=== PATIENT | male | born 1945 | race Caucasian/White ===

== ENCOUNTER 2020-02-14 01:43 | Outpatient (CLI) | payer OTHER, SELFPAY ==
--- NOTE | 2020-02-14 | DI.MRI_ITS ---
EXAM: MR PELVIS WO CLINICAL HISTORY: PROSTATE CA,C61,S/P FIDUCIAL MARKER AND HDYROGEL PLACEMENT,[id number]. TECHNIQUE: Multiplanar multisequence MRI was performed. COMPARISON: No exams were available for comparison FINDINGS: MR of the pelvis was performed for radiation therapy planning purposes according to the usual protoco l in patient with reported history of prostatic carcinoma. No significant bony lesion identified on this limited examination. No gross pelvic adenopathy identified. Heterogeneous appearance of the pr ostate noted. Urinary bladder wall thickening noted. There is presumed hydro gel placement anterior to the rectum. IMPRESSION: DATA REPOSITORY:
== END 2020-02-14 02:03 ==
PROVIDERS: PCP Internal Medicine; Visit Provider Radiology Radiation Oncology
DX: C61 Malignant neoplasm of prostate (principal); N32.89 Other specified disorders of bladder; Z51.0 Encounter for antineoplastic radiation therapy
CPT/HCPCS: 72195

== ENCOUNTER 2020-10-03 17:27 | Outpatient (REF) | payer OTHER, SELFPAY ==
[2020-10-03 18:23] LABS: Bilirubin Small (Negative); Blood Large (Negative); Clarity Cloudy (Clear); Glucose Negative (Negative); Ketones Negative (Negative); Leukocyte Esterase Trace (Negative); Nitrite Positive (Negative); pH 8.5 (5-8)
[2020-10-03 18:32] LABS: Epithelial Cells Few HPF (Negative)
[2020-10-03 18:33] LABS: Bacteria Many HPF (Negative); C & S Indicated? Yes; Casts Negative LPF (Negative); Crystals Negative HPF (Negative); Mucus Moderate (Negative)
== END 2020-10-03 17:28 | disposition home or self-care (01) ==
LOC: LBN 17:27
PROVIDERS: PCP Internal Medicine; Visit Provider Internal Medicine
DX: R31.9 Hematuria, unspecified (principal); N39.0 Urinary tract infection, site not specified
CPT/HCPCS: 87077; 81003; 81015; 87086; 87186

== ENCOUNTER 2020-10-24 04:07 | Outpatient (CLI) | payer OTHER, SELFPAY ==
[2020-10-25 17:06] LABS: PSA, Ultrasensitive 1.4 ng/mL (<= 6.5)
[2020-10-28 14:01] LABS: Testosterone, Total 309 ng/dL (240-950)
== END 2020-10-24 04:08 | disposition home or self-care (01) ==
PROVIDERS: Nurse Practitioner Family; PCP Internal Medicine
DX: C61 Malignant neoplasm of prostate (principal)
CPT/HCPCS: 36415; 84153; 84403

== ENCOUNTER 2020-12-26 03:37 | Outpatient (CLI) | payer OTHER, SELFPAY ==
[2020-12-26 14:50] LABS: Abs Immature Grans 0.02 10^3/uL (0.0-0.06); Absolute Basophil Count 0.03 10^3/uL (0.0-0.2); Absolute Lymphocyte Count 0.99 10^3/uL (1.2-3.4); Absolute Monocyte Count 0.52 10^3/uL (0.1-0.8); Absolute Neutrophil Count 4.44 10^3/uL (1.2-6.7); Basophils % 0.5; Eosinophils % 3.2; HCT 37.2 % (40.0-50.0); Immature Grans % 0.3; MCH 32.3 pg (27.0-33.0); MCHC 32.3 % (32.0-36.0); MCV 100.3 fL (80-95); MPV 8.2 fL (8.0-11.0); Monocytes % 8.4; Neutrophils % 71.6; Nucleated RBC 0 %; Platelet Count 121 10^3/uL (130-400); RBC 3.71 10^6/uL (4.36-5.78); RDW 14.2 % (11.8-14.1); RDW-SD 52.3 fL
[2020-12-26 16:20] LABS: ALT 27 U/L (16-63); AST 23 U/L (15-37); Albumin 3.1 g/dL (3.4-5.0); Alkaline Phosphatase 106 U/L (46-116); Anion Gap 6.9 mmol/L (3-11); BUN 11 mg/dL (7-18); Bilirubin, Total 0.7 mg/dL (0.2-1.0); CO2 32.1 mmol/L (21.0-32.0); CREATININE 0.9 mg/dL (0.70-1.30); Calcium 9.1 mg/dL (8.5-10.1); Chloride 102 mmol/L (98-107); Glucose 91 mg/dL (74-106); Potassium 3.7 mmol/L (3.5-5.1); Sodium 141 mmol/L (136-145); Total Protein 6.3 g/dL (6.4-8.2)
[2020-12-26 16:42] LABS: LDH 191 U/L (85-227)
[2020-12-28 15:44] LABS: PSA, Ultrasensitive 1.2 ng/mL (<= 6.5)
== END 2020-12-26 03:38 | disposition home or self-care (01) ==
LOC: LBO 03:37
PROVIDERS: PCP Internal Medicine; Visit Provider Internal Medicine Medical Oncology
DX: C61 Malignant neoplasm of prostate (principal); C82.98 Follicular lymphoma, unspecified, lymph nodes of multiple sites
CPT/HCPCS: 36415; 80053; 84153; 83615; 85025

== ENCOUNTER 2021-01-05 10:27 | Emergency (ER) | payer OTHER, SELFPAY ==
[2021-01-05] VITALS (38 sets, daily range): BP systolic 94–143; BP diastolic 59–73; PULSE 48–96; RESP 11–24; TEMP 36.5; O2SAT 90–100
--- NOTE | 2021-01-05 10:15 | RT.EKG_ITS ---
APPROVED REPORT Exam: Resting ECG Reason for Exam: seizure Patient Location: E HR:95 bpm ECG Measurements Heart Rate 95 AXIS WY 166 P 73 QRSd 143 QRS 50 QT 381 T 43 QTc 481 Conclusion Sinus rhythm. Right bundle branch block.
--- NOTE | 2021-01-05 10:30 | DI.RAD_ITS ---
Exam(s) XR CHEST 1V IN DI DEPT EXAM: XR CHEST 1V IN DI DEPT CLINICAL HISTORY: seizure. TECHNIQUE: 2D digital imaging was performed. COMPARISON: No exams were available for comparison FINDINGS: Heart size upper normal mediastinum is not widened. Right lung is clear. Subtle density lateral asp ect lower left lung noted, measuring 8 x 7 millimeters. Possible small nodule. Remainder of the jerome g singh are clear. No pleural effusions. Lungs are clear. No infiltrates nor obvious pleural effusions. IMPRESSION: Possible small nodular infiltrate lateral left lung base. Comparison a prior outside images would be helpful take cyst. If not then recommend follow-up chest CT scan. DATA REPOSITORY: RADIATION DOSE DELIVERED: All CT scans at this facility use at least one of these dose optimization techniques: automated exposure control; mA and/or kV adjustment per patient size (includes targeted e xams where dose is matched to clinical indication); or iterative reconstruction.
[2021-01-05] MEDS: Normal Saline Flush 10 ML SYR IVP (10:32)
--- NOTE | 2021-01-05 10:33 | W.ED.GENAD ---
Discharge Plan Disposition Patient Disposition: OTHER Condition: Stable Discharge Details Clinical Impression: Breakthrough seizure Primary Care Provider: Alfredo Montoya ED Provider: Son Gama Home Meds and New Rx's Prescriptions: No Action atorvastatin 80 mg Tablet 80 mg PO DAILY RF: 0 potassium chloride 10 mEq Capsule, Extended Release 10 meq PO DAILY RF: 0 aspirin [Aspir-81] 81 mg Tablet,Delayed Release (Dr/Ec) 81 mg PO DAILY RF: 0 tamsulosin 0.4 mg Capsule 0.4 mg PO DAILY RF: 0 lisinopril 10 mg Tablet 10 mg PO DAILY RF: 0 folic acid 1 mg Tablet 1 mg PO DAILY RF: 0 cholecalciferol (vitamin D3) [Vitamin D3] 25 mcg (1,000 unit) Tablet 25 mcg PO DAILY RF: 0 lacosamide 100 mg Tablet 100 mg PO BID RF: 0 Medical Decision Making 75-year-old male who by report 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 Went on to develop a seizure disorder for which his medications were changed in November. (Report that he was switched to Lacosamide in November). Today he was reported to have generalized seizure that started with tonic-clonic movements of the right upper extremity progressed to full body tonic-clonic movements. He had initial seizure approximately 5 minutes and then recurrent 1 and 2-minute seizure. EMS reports lucidity in between the seizures, in which he was able to speak clearly. After second seizure, he was given 10 mg of IM Versed with resolution of the seizure-like activity. No report of recent illness. Patient arrives blood pressure 100/60, pulse in the 90s, temp 36.5. He is post ictal/somnolent from the Ativan administered by EMS. Patient referred for stat noncontrast CT scan of the head. He is placed on a downstairs maid, given fluid bolus and observed. Screening laboratories obtained. Imaging: Patient's CT does show hyperdense subdural hematoma up to 3 mm in thickness overlying the left anterior cerebral cortex and frontal lobe. There is no mass-effect. See formal report. Patient's initial lactic acid was 7.9, improved to 1.7 after fluids. CBC with white count 4, hematocrit 37, platelets 154. INR 1.0. Sodium 143, potassium 2.8, chloride 105, bicarb 24, BUN 9, creatinine 1.1, magnesium 1.6, AST 13, ALT 15. Urine specific gravity greater than 1.03. Records obtained and reviewed. Patient was seen in November at [place] and transitioned from Depakote to lacosamide due to thrombocytopenia. In August of this year he had was seen at [facility] where he had interventional radiology middle meningeal artery embolization of the left acute subdural. He since has had medication recommendations from the [facility] neurology service. Patient improving and now more alert and able to name his and daughter. He has hypokalemia and hypomagnesemia. I have ordered 200 mg of IV lacosamide and he is receiving electrolyte supplementation. Case discussed with on-call neurology at [facility]. They do not have capacity to accept transfer and recommend referral of the patient to [facility] where he is previously well known. Case discussed with transfer center and patient accepted to the service of Dr. Hopkins/emergency department at [facility]. Lab Data Lab results reviewed: Yes I reviewed the patient's lab results. Labs: Laboratory Results - last 24 hr 01/05/21 01/05/21 01/05/21 10:32 10:32 10:32 WBC 4.95 RBC 3.76 L Hgb 12.1 L Hct 37.5 L MCV 99.7 H MCH 32.2 MCHC 32.3 RDW 13.2 Plt Count 154 MPV 8.3 Immature Gran % 0.4 Neutrophils % 68.2 Lymphocytes % 20.0 Monocytes % 5.1 Eosinophils % 5.7 Basophils % 0.6 Nucleated RBC % 0 Absolute Neutrophils 3.38 Absolute Lymphocytes 0.99 L Absolute Monocytes 0.25 Absolute Eosinophils 0.28 Absolute Basophils 0.03 PT 10.4 INR 1.0 APTT 21.5 VBG Lactate Sodium 143 Potassium 2.8 L* Chloride 105 Carbon Dioxide 24.3 Anion Gap 13.7 H BUN 9 Creatinine 1.1 Estimated GFR/1.73 m2 >= 60.00 Glucose 119 H Calcium 8.8 Magnesium 1.6 L Total Bilirubin 0.4 AST 13 L ALT 15 L Alkaline Phosphatase 94 Troponin I Total Protein 5.7 L Albumin 2.7 L Urine Color Urine Clarity Urine pH Ur Specific [place] Urine Protein Urine Ketones Urine Blood Urine Nitrite Urine Bilirubin Urine Urobilinogen Ur Leukocyte Esterase Urine RBC Urine WBC Ur Epithelial Cells Urine Crystals Urine Bacteria Urine Casts Urine Mucus Urine Other Ur Culture Indicated? Urine Glucose Urine Opiates Screen Urine Methadone Screen Ur Barbiturates Screen Ur Tricyclics Screen Ur Amphetamines Screen U Benzodiazepines Scrn Urine Cocaine Screen Ur THC Screen Ethyl Alcohol < 3.0 COVID-19 Source 01/05/21 01/05/21 01/05/21 10:32 10:32 10:49 WBC RBC Hgb Hct MCV MCH MCHC RDW Plt Count MPV Immature Gran % Neutrophils % Lymphocytes % Monocytes % Eosinophils % Basophils % Nucleated RBC % Absolute Neutrophils Absolute Lymphocytes Absolute Monocytes Absolute Eosinophils Absolute Basophils PT INR APTT VBG Lactate 7.9 H* Sodium Potassium Chloride Carbon Dioxide Anion Gap BUN Creatinine Estimated GFR/1.73 m2 Glucose Calcium Magnesium Total Bilirubin AST ALT Alkaline Phosphatase Troponin I < 0.05 Total Protein Albumin Urine Color Urine Clarity Urine pH Ur Specific [place] Urine Protein Urine Ketones Urine Blood Urine Nitrite Urine Bilirubin Urine Urobilinogen Ur Leukocyte Esterase Urine RBC Urine WBC Ur Epithelial Cells Urine Crystals Urine Bacteria Urine Casts Urine Mucus Urine Other Ur Culture Indicated? Urine Glucose Urine Opiates Screen Positive A Urine Methadone Screen Negative Ur Barbiturates Screen Negative Ur Tricyclics Screen Negative Ur Amphetamines Screen Negative U Benzodiazepines Scrn Positive A Urine Cocaine Screen Negative Ur THC Screen Negative Ethyl Alcohol COVID-19 Source 01/05/21 01/05/21 01/05/21 10:49 12:24 12:28 WBC RBC Hgb Hct MCV MCH MCHC RDW Plt Count MPV Immature Gran % Neutrophils % Lymphocytes % Monocytes % Eosinophils % Basophils % Nucleated RBC % Absolute Neutrophils Absolute Lymphocytes Absolute Monocytes Absolute Eosinophils Absolute Basophils PT INR APTT VBG Lactate 1.7 H Sodium Potassium Chloride Carbon Dioxide Anion Gap BUN Creatinine Estimated GFR/1.73 m2 Glucose Calcium Magnesium Total Bilirubin AST ALT Alkaline Phosphatase Troponin I Total Protein Albumin Urine Color Yellow Urine Clarity Clear Urine pH 6.0 Ur Specific [place] >= 1.030 H Urine Protein 30 H Urine Ketones Negative Urine Blood Small H Urine Nitrite Negative Urine Bilirubin Negative Urine Urobilinogen 0.2 Ur Leukocyte Esterase Negative Urine RBC 5-10 H Urine WBC 0-2 Ur Epithelial Cells Rare Urine Crystals Few calcium oxalate Urine Bacteria Few Urine Casts 5-10 hyaline Urine Mucus Trace Urine Other Ur Culture Indicated? Yes Urine Glucose Negative Urine Opiates Screen Urine Methadone Screen Ur Barbiturates Screen Ur Tricyclics Screen Ur Amphetamines Screen U Benzodiazepines Scrn Urine Cocaine Screen Ur THC Screen Ethyl Alcohol COVID-19 Source Nasal/nares HPI General Mode of arrival: EMS. Date/Time Provider Initiated Documentation: 01/05/21 10:42. Limitations to Documentation: no limitations and other (Postictal). Information obtained by: EMS. History of Present Illness 75 year old M presents to the emergency department with the chief complaint of Seizure this morning, described as moderate and similar to prior episodes, Quality is described as dull and constant, and it has been now resolved. No relieving factors improve symptom(s), No exacerbating factors reported . Patient notes denies fever/chills and nausea/vomiting. Patient did receive the following treatments prior to arrival, other (Midazolam 10 mg IV) Related Data Home Medications Medication Instructions Recorded Confirmed aspirin [Aspir-81] 81 mg PO DAILY 01/05/21 01/05/21 atorvastatin 80 mg PO DAILY 01/05/21 01/05/21 cholecalciferol (vitamin D3) 25 mcg PO DAILY 01/05/21 01/05/21 [Vitamin D3] folic acid 1 mg PO DAILY 01/05/21 01/05/21 lacosamide 100 mg PO BID 01/05/21 01/05/21 lisinopril 10 mg PO DAILY 01/05/21 01/05/21 potassium chloride 10 meq PO DAILY 01/05/21 01/05/21 tamsulosin 0.4 mg PO DAILY 01/05/21 01/05/21 Allergies Allergy/AdvReac Type Severity Reaction Status Date / Time No Known Allergies Allergy Unverified 03/04/15 13:08 Review of Systems Narrative: History of previous, residual left-sided weakness. Report of recent change in antiseizure medications. 6 systems reviewed and otherwise negative [facility] Medical History Hypertension Family History Father Personal history of malignant neoplasm prostate cancer Social History Smoking risk assessment performed?: No Exam Narrative Exam Narrative: GEN: well groomed HEAD: Normocephalic, atraumatic ENT: Mucous membranes moist, oropharynx unremarkable, External ear exam unremarkable EYES: PERRL, EOMI NECK: Full ROM, no WILLOW, no menigismus CHEST/RESP: Nontender, clear to auscultation bilateral, no wheeze/rhonchi/rales CARDIOVASCULAR: RRR, no murmur, rub rani. 2+ Rad pulse bilateral ABDOMEN: Soft, nontender, no mass. +Bowel sounds EXT: Full ROM, no edema, no rash Neuro: Somnolent at time of exam Psych: Unable to assess
[2021-01-05] MEDS: Normal Saline 1,000 ML 150 ML IV (10:40)
[2021-01-05 10:44] LABS: Abs Immature Grans 0.02 10^3/uL (0.0-0.06); Absolute Basophil Count 0.03 10^3/uL (0.0-0.2); Absolute Eosinophil Count 0.28 10^3/uL (0.0-0.7); Absolute Lymphocyte Count 0.99 10^3/uL (1.2-3.4); Absolute Monocyte Count 0.25 10^3/uL (0.1-0.8); Absolute Neutrophil Count 3.38 10^3/uL (1.2-6.7); Basophils % 0.6; Eosinophils % 5.7; HCT 37.5 % (40.0-50.0); HGB 12.1 g/dL (13.5-17.5); Immature Grans % 0.4; MCH 32.2 pg (27.0-33.0); MCHC 32.3 % (32.0-36.0); MCV 99.7 fL (80-95); MPV 8.3 fL (8.0-11.0); Monocytes % 5.1; Neutrophils % 68.2; Nucleated RBC 0 %; Platelet Count 154 10^3/uL (130-400); RBC 3.76 10^6/uL (4.36-5.78); RDW 13.2 % (11.8-14.1); RDW-SD 48.1 fL; WBC 4.95 10^3/uL (4.4-10.8)
--- NOTE | 2021-01-05 10:46 | DI.CT_ITS ---
Exam(s) CT HEAD WO EXAM: CT HEAD WO CLINICAL HISTORY: seizure, hx of aneurysm repair. TECHNIQUE: Imaging Protocol: Axial computed tomography images with coronal and sagittal reformatted images were created and reviewed COMPARISON: No exams were available for comparison FINDINGS: There are no skull fractures nor fluid in the visualized paranasal sinuses. However, there is symme trical periosteal thickening in both maxillary sinuses. No acute sinus disease. Right frontal sinus es are not developed. Left frontal sinus unremarkable. There is a very thin subdural hematoma measuring 2-3 millimeter thickness over the anterior left cere bral convexity and frontal lobe. No associated mass effect. No intra-axial hemorrhage. There is an area encephalomalacia in the right frontal lobe extending towards the basal ganglia. Thi s is related to nonacute infarct. No significant findings in the cerebellar hemispheres nor within t he meena, midbrain, and thalami. IMPRESSION: 1. 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 No acute infarct evident. 2. Very thin subdural hematoma over the left anterior convexity. No obvious associated mass effect. There is no intra-axial hemorrhage. This study 1st read by [facility]. RADIATION DOSE DELIVERED: 896.56mGy.cm Total DLP DATA REPOSITORY: All CT scans at this facility are submitted to the National Radiology Data Registry (NRDR) Dose Index Registry (DIR) with the [employer] ([employer]). RADIATION OPTIMIZATION: All CT scans at this facility use at least one of these dose optimization te chniques: automated exposure control; mA and/or kV adjustment per patient size (includes targeted exa ms where dose is matched to clinical indication); or iterative reconstruction.
[2021-01-05 10:48] LABS: Lactate 7.9 mmol/L (0.6-1.4)
[2021-01-05 10:56] LABS: Bilirubin Negative (Negative); Blood Small (Negative); Clarity Clear (Clear); Glucose Negative (Negative); Ketones Negative (Negative); Leukocyte Esterase Negative (Negative); Nitrite Negative (Negative); Specific Gravity >= 1.030 (1.005-1.025); Urobilinogen 0.2 EU/dL (Up TO 0.2)
[2021-01-05] MEDS: Normal Saline 1,000 ML 1000 ML IV (10:56)
[2021-01-05 10:59] LABS: ALT 15 U/L (16-63); AST 13 U/L (15-37); Albumin 2.7 g/dL (3.4-5.0); Alkaline Phosphatase 94 U/L (46-116); Anion Gap 13.7 mmol/L (3-11); BUN 9 mg/dL (7-18); Bilirubin, Total 0.4 mg/dL (0.2-1.0); CO2 24.3 mmol/L (21.0-32.0); CREATININE 1.1 mg/dL (0.70-1.30); Calcium 8.8 mg/dL (8.5-10.1); Chloride 105 mmol/L (98-107); ETHANOL BLOOD < 3.0 mg/dL (<3); Glucose 119 mg/dL (74-106); Magnesium 1.6 mg/dL (1.8-2.4); PTT Activated 21.5 sec (21.0-27.5); Potassium 2.8 mmol/L (3.5-5.1); Prothrombin Time 10.4 sec (9.3-11.0); Sodium 143 mmol/L (136-145); Total Protein 5.7 g/dL (6.4-8.2)
[2021-01-05 11:03] LABS: Troponin I < 0.05 ng/mL (<0.06)
[2021-01-05 11:05] LABS: Bacteria Few HPF (Negative); Epithelial Cells Rare HPF (Negative); WBC 0-2 HPF (0-5)
[2021-01-05 11:06] LABS: C & S Indicated? Yes; Casts 5-10 Hyaline LPF (Negative); Crystals Few Calcium Oxalate HPF (Negative); Mucus Trace (Negative)
[2021-01-05 11:12] LABS: *AMPHETAMINES SCREEN URINE Negative (Negative); *BARBITURATES SCREEN URINE Negative (Negative); *BENZODIAZEPINES SCREEN URINE Positive (Negative); Cannabinoids THC Negative (Negative); Cocaine Screen,Urine Negative (Negative); METHADONE URINE SCREEN Negative (Negative); OPIATES URINE SCREEN Positive (Negative)
[2021-01-05 11:17] LABS: Tricyclic Antidepressants Negative (Negative)
--- NOTE | 2021-01-05 11:46 | DI.VRAD_ITS ---
Addendum created by Caleb Pedraza DO on 01/05/2021 11:48:39 AM EDT: THIS REPORT CONTAINS FINDINGS THAT MAY BE CRITICAL TO PATIENT CARE. The findings were verbally communicated via telephone conference at 11:48 AM EDT on 01/05/2021 with BRITTNEY VENCES. The findings were acknowledged and understood. Initial report created on 01/05/2021 11:46:15 AM EDT: PROCEDURE INFORMATION: Exam: CT Head Without Contrast Exam date and time: 01/05/2021 11:18 AM Age: 75 years old Clinical indication: Other: Seizure, HX of aneurysm repair; Prior surgery; Surgery date: 6+ months TECHNIQUE: Imaging protocol: Computed tomography of the head without contrast. Radiation optimization: All CT scans at this facility use at least one of these dose optimization techniques: automated exposure control; mA and/or kV adjustment per patient size (includes targeted exams where dose is matched to clinical indication); or iterative reconstruction. COMPARISON: No relevant prior studies available. FINDINGS: Brain: Vetnura-white matter differentiation is normal. There is no mass effect or midline shift. There is no intra-axial hemorrhage. There is encephalomalacia in the right frontal lobe extending into the right frontal operculum , anterior right insula and right basal ganglia. There is associated volume loss and likely sequela of remote infarction. There is parenchymal volume loss with compensatory dilatation of ventricles, sulci and basilar cisterns. There are patchy foci of periventricular, subcortical hypodensity as well hypodensity within the bilateral basal ganglia and meena, probably reflecting chronic microvascular ischemic changes. There is a hyperdense subdural hematoma measuring up to 3 mm in thickness overlying anterior left cerebral convexity and overlying the left frontal lobe. There is no mass effect. Cerebral ventricles: No ventriculomegaly. Bones/joints: No acute fracture. Paranasal sinuses: Visualized sinuses are unremarkable. No fluid levels. Mastoid air cells: Visualized mastoid air cells are well aerated. Orbital cavity: Patient is status post cataract extraction bilaterally. Vasculature: There are heavy calcifications of bilateral carotid siphon. Soft tissues: Unremarkable. Dental: There is lucency surrounding the left mandibular premolar teeth, probably reflecting odontogenic disease. There are calcified tonsilliths in the right tonsil. IMPRESSION: 1. Small subdural hematoma overlying anterior left cerebral convexity. There is no mass effect. 2. Chronic encephalomalacia in the right frontal lobe, anterior right insula and anterior right basal ganglia, likely sequela of remote /chronic infarction. 3. [id number] burden of white matter disease, probably due to chronic microvascular ischemic changes in a patient of advanced age. Dictated and Authenticated by: Caleb Pedraza MD. Ordering:BIRD Cline MD
[2021-01-05] MEDS: MAGNESIUM SULFATE 2 GM/50 ML BAG IVPB (11:47)
[2021-01-05] MEDS: POTASSIUM CHLORIDE 20 MEQ/100 ML BAG 50 MEQ IVPB (11:47)
--- NOTE | 2021-01-05 11:47 | DI.VRAD_ITS ---
PROCEDURE INFORMATION: Exam: XR Chest Exam date and time: 01/05/2021 10:38 AM Age: 75 years old Clinical indication: Other: Seizure; Additional info: Seizure, PT unable to follow breathing instructions TECHNIQUE: Imaging protocol: XR of the chest. Views: 1 view. COMPARISON: CT CHEST WITH CONTRAST 03/08/2015 1:14 PM FINDINGS: Lungs: Unremarkable. No consolidation. Pleural spaces: Unremarkable. No pleural effusion. No pneumothorax. Heart/Mediastinum: Unremarkable. No cardiomegaly. Bones/joints: No acute osseous abnormality. IMPRESSION: No acute findings. Dictated and Authenticated by: Caleb Pedraza MD. Ordering:BIRD Cline MD
--- NOTE | 2021-01-05 12:25 | NUR.NOTE ---
Nursing Note: Bertha daughter [phone]
[2021-01-05 12:31] LABS: Lactate 1.7 mmol/L (0.6-1.4)
[2021-01-05 12:32] LABS: Source Nasal/Nares
[2021-01-05] MEDS: NORMAL SALINE IVPB (13:02)
[2021-01-05] MEDS: LACOSAMIDE IVPB (13:02)
[2021-01-05 18:47] LABS: COVID-19 PCR Negative (Negative)
--- NOTE | 2021-01-13 08:26 | W.ED.FU ---
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
== END 2021-01-05 14:23 | disposition other institution (70) ==
PROVIDERS: Emergency Provider Emergency Medicine; PCP Internal Medicine
DX: G40.802 Other epilepsy, not intractable, without status epilepticus (principal); E87.6 Hypokalemia; E83.42 Hypomagnesemia
CPT/HCPCS: 36416; 80053; 80307; 82962; 87077; 87635; 93005; 96361; 96365; 96366; 96368; 96375; 99285; 70450; 71045; 80320; 81003; 81015; 83605; 83735; 84484; 85025; 85610; 85730; 87086; 87186; 93010; 99284; J3480

== ENCOUNTER 2021-04-17 03:41 | Outpatient (CLI) | payer OTHER, SELFPAY ==
[2021-04-21 11:02] LABS: PSA, Ultrasensitive 0.64 ng/mL (<= 6.5)
== END 2021-04-17 03:42 | disposition home or self-care (01) ==
LOC: LBO 03:41
PROVIDERS: PCP Internal Medicine; Visit Provider Nurse Practitioner
DX: C61 Malignant neoplasm of prostate (principal)
CPT/HCPCS: 36415; 84153

== ENCOUNTER 2021-10-15 01:51 | Outpatient (CLI) | payer MEDICARE, SELFPAY ==
[2021-10-22 14:55] LABS: Testosterone, Total 252 ng/dL (240-950)
== END 2021-10-15 01:52 | disposition home or self-care (01) ==
PROVIDERS: PCP Internal Medicine; Visit Provider Nurse Practitioner Family
DX: C61 Malignant neoplasm of prostate (principal)
CPT/HCPCS: 36415; 84153; 84403

== ENCOUNTER 2021-11-12 02:21 | Outpatient (CLI) | payer MEDICARE, SELFPAY ==
[2021-11-12 10:55] LABS: Abs Immature Grans 0.03 10^3/uL (0.0-0.06); Absolute Basophil Count 0.03 10^3/uL (0.0-0.2); Absolute Monocyte Count 0.52 10^3/uL (0.1-0.8); Absolute Neutrophil Count 4.57 10^3/uL (1.2-6.7); Basophils % 0.4; Eosinophils % 7.4; HCT 44.8 % (40.0-50.0); HGB 14.3 g/dL (13.5-17.5); Immature Grans % 0.4; Lymphocytes % 16.3; MCH 30.7 pg (27.0-33.0); MCHC 31.9 % (32.0-36.0); MCV 96.1 fL (80-95); MPV 8.6 fL (8.0-11.0); Monocytes % 7.7; Neutrophils % 67.8; Nucleated RBC 0 %; Platelet Count 153 10^3/uL (130-400); RBC 4.66 10^6/uL (4.36-5.78); RDW 13.8 % (11.8-14.1); RDW-SD 49.2 fL; WBC 6.75 10^3/uL (4.4-10.8)
[2021-11-12 11:14] LABS: ALT 20 U/L (16-63); AST 12 U/L (15-37); Albumin 3.7 g/dL (3.4-5.0); Alkaline Phosphatase 127 U/L (46-116); Anion Gap 5.1 mmol/L (3-11); BUN 13 mg/dL (7-18); Bilirubin, Total 0.4 mg/dL (0.2-1.0); CO2 33.9 mmol/L (21.0-32.0); CREATININE 0.8 mg/dL (0.70-1.30); Calcium 9.1 mg/dL (8.5-10.1); Chloride 104 mmol/L (98-107); Glucose 119 mg/dL (74-106); LDH 115 U/L (85-227); Sodium 143 mmol/L (136-145)
== END 2021-11-12 02:22 | disposition home or self-care (01) ==
LOC: LBO 02:21
PROVIDERS: PCP Internal Medicine; Visit Provider Internal Medicine Medical Oncology
DX: C82.90 Follicular lymphoma, unspecified, unspecified site (principal); C61 Malignant neoplasm of prostate
CPT/HCPCS: 36415; 80053; 83615; 85025

== ENCOUNTER 2021-12-12 17:40 | Emergency (ER) | payer MEDICARE, SELFPAY ==
[2021-12-12] VITALS (39 sets, daily range): BP systolic 121–148; BP diastolic 67–97; PULSE 63–81; RESP 14–20; TEMP 36.5; O2SAT 93–97
--- NOTE | 2021-12-12 17:45 | DI.RAD_ITS ---
Exam(s) XR CHEST 1V IN DI DEPT EXAM: XR CHEST 1V IN DI DEPT CLINICAL HISTORY: AMS. TECHNIQUE: 2D digital imaging was performed. COMPARISON: CR,XR XR CHEST 1V IN DI DEPT from 01/05/2021 FINDINGS: LUNGS: Clear. No pleural abnormality seen. HEART: Normal. MEDIASTINUM: Normal. OTHER FINDINGS: None. IMPRESSION: No acute pulmonary findings. DATA REPOSITORY: RADIATION DOSE DELIVERED: Total DLP
--- NOTE | 2021-12-12 17:45 | RT.EKG_ITS ---
APPROVED REPORT Exam: Resting ECG Reason for Exam: ams,seizure Patient Location: E HR:77 bpm ECG Measurements Heart Rate 77 AXIS WY 178 P 54 QRSd 150 QRS 65 QT 389 T 57 QTc 442 Conclusion Sinus rhythm...normal P axis, V-rate 60- 99 Right bundle branch block...QRSd>120, terminal axis(90,270) sinus rhtyhm, normal axis, RBBB old
--- NOTE | 2021-12-12 17:49 | W.ED.GENAD ---
Discharge Plan Disposition Patient Disposition: HOME Condition: Improving Discharge Details Clinical Impression: Breakthrough seizure, Urinary tract infection Primary Care Provider: Alfredo Montoya ED Provider: Rajinder Burger Home Meds and New Rx's Prescriptions: New cefpodoxime 200 mg tablet 200 mg PO BID 10 Days Qty: 20 0RF Rx Instructions: must administer with a meal/food No Action prazosin 1 mg Capsule 1 mg PO HS 0RF melatonin 3 mg Tablet 3 mg PO HS 0RF mirtazapine 7.5 mg Tablet 7.5 mg PO HS 0RF lactobacillus combo #5 150 mg (2 billion cell) Tablet,Delayed Release (Dr/Ec) 1 mg PO DAILY 0RF atorvastatin 80 mg Tablet 80 mg PO DAILY 0RF potassium chloride 10 mEq Capsule, Extended Release 10 meq PO DAILY 0RF tamsulosin 0.4 mg Capsule 0.4 mg PO DAILY 0RF folic acid 1 mg Tablet 1 mg PO DAILY 0RF cholecalciferol (vitamin D3) [Vitamin D3] 25 mcg (1,000 unit) Tablet 25 mcg PO DAILY 0RF lacosamide 100 mg Tablet 200 mg PO BID 0RF Discharge Instructions Instructions: Recurrent Seizures in Adults (ED) Additional Instructions: Please be seen by your neurologist next week. Take your medications as prescribed. Please return to the emergency department for any worsening symptoms including fevers chills nausea vomiting change in behavior weakness numbness or recurrent seizures or other abnormal symptomatology Medical Decision Making 76-year-old male history of seizure disorder on lacosamide, presents after possible seizure activity partial in nature, no loss of conscious, slightly tearful and anxious on arrival, endorses feeling lightheaded, possible history of cerebral aneurysm per collateral from EMS however patient says he had fluid on the brain, does have a history of UTIs, alert and oriented moving all extremities slight weakness to left upper and left lower extremity no facial droop, no speech deficits, consider Mj's paralysis versus less likely CVA versus less likely intracranial hemorrhage versus must consider normal pressure hydrocephalus versus UTI versus electrolyte abnormality versus less likely infectious process such as meningitis or encephalitis, screening labs imaging close reassessment 2138 resting notably no acute distress no further seizure activity. Evidence of UTI. Will treat empirically. Patient will follow up with his neurologist. Family here to take him home. HPI General Date/Time Provider Initiated Documentation: 12/12/21 17:45. HPI Narrative: 76-year-old male history of seizure disorder, on lacosamide, brought in by EMS for possible seizure activity, facial twitching and eye movement noted by patient and family happened twice this evening, no description of tonic-clonic movement or LOC, patient endorses feeling slightly lightheaded. Follows with neurologist at [facility] Related Data Home Medications Medication Instructions Recorded Confirmed atorvastatin 80 mg tablet 80 mg PO DAILY 01/05/21 12/12/21 cholecalciferol (vitamin D3) 25 25 mcg PO DAILY 01/05/21 12/12/21 mcg (1,000 unit) tablet (Vitamin D3) folic acid 1 mg tablet 1 mg PO DAILY 01/05/21 12/12/21 lacosamide 100 mg tablet 200 mg PO BID 01/05/21 12/12/21 potassium chloride 10 mEq 10 meq PO DAILY 01/05/21 12/12/21 capsule,extended release tamsulosin 0.4 mg capsule 0.4 mg PO DAILY 01/05/21 12/12/21 cefpodoxime 200 mg tablet 200 mg PO BID 10 Days #20 tab 12/12/21 lactobacillus combo #5 150 mg (2 1 mg PO DAILY 12/12/21 12/12/21 billion cell) tablet,delayed release melatonin 3 mg tablet 3 mg PO HS 12/12/21 12/12/21 mirtazapine 7.5 mg tablet 7.5 mg PO HS 12/12/21 12/12/21 prazosin 1 mg capsule 1 mg PO HS 12/12/21 12/12/21 Previous Rx's Medication Instructions Recorded cefpodoxime 200 mg tablet 200 mg PO BID 10 Days #20 tab 12/12/21 Allergies Allergy/AdvReac Type Severity Reaction Status Date / Time No Known Allergies Allergy Unverified 03/04/15 13:08 General ALONZO: 2 Review of Systems Narrative: Review of Systems Constitutional: negative Eyes: negative ENT: negative Cardiovascular: negative Respiratory: negative Gastrointestinal: negative : negative Musculoskeletal: negative Skin: negative Neurologic: Seizure activity Psych: negative PFSH All Active Problems (Updated 12/12/21 @ 21:42 by Rajinder Burger MD) Breakthrough seizure (Acute) Urinary tract infection (Acute) Medical History Hypertension Family History Father Personal history of malignant neoplasm prostate cancer Social History Smoking/Tobacco Use Status: Current every day Tobacco Type: cigarettes Smoking risk assessment performed?: Yes Alcohol Intake: former Substance use type: does not use Do you feel safe at home: Yes Do you feel safe in your relationship?: Yes Exam Narrative Exam Narrative: Physical Examination General: alert, awake, cooperative, resting comfortably, no acute distress HEENT: normocephalic, atraumatic; PERRL, EOM intact, conjunctiva normal; no nasal discharge; moist mucous membranes, oral and pharyngeal mucosa normal, tolerating secretions Neck: supple, trachea midline; full ROM Chest: normal to inspection Respiratory: normal respiratory effort, speaking in full sentences, clear to auscultation, no wheezing, rales or rhonchi Cardiac: regular rate, regular rhythm, S1S2 intact, no murmurs rubs or gallops GI: abdomen soft, non-tender, non-distended; no palpable mass or hepatosplenomegaly Skin: no lesions, rashes or trauma appreciated Neuro: AAOx3, normal speech, moving all extremities, 4+ out of 5 strength left upper and left lower extremity, 5 out of 5 strength right upper and right lower extremity, cranial nerves II through XII intact Psych: Tearful, anxious
[2021-12-12 18:34] LABS: Abs Immature Grans 0.03 10^3/uL (0.0-0.06); Absolute Basophil Count 0.04 10^3/uL (0.0-0.2); Absolute Eosinophil Count 0.44 10^3/uL (0.0-0.7); Absolute Lymphocyte Count 1.13 10^3/uL (1.2-3.4); Absolute Monocyte Count 0.54 10^3/uL (0.1-0.8); Absolute Neutrophil Count 4.26 10^3/uL (1.2-6.7); Basophils % 0.6; Eosinophils % 6.8; HCT 46.9 % (40.0-50.0); HGB 14.9 g/dL (13.5-17.5); Immature Grans % 0.5; Lymphocytes % 17.5; MCH 30.4 pg (27.0-33.0); MCHC 31.8 % (32.0-36.0); MCV 95.7 fL (80-95); Monocytes % 8.4; Neutrophils % 66.2; Platelet Count 174 10^3/uL (130-400); RDW 13.8 % (11.8-14.1); RDW-SD 48.9 fL; WBC 6.44 10^3/uL (4.4-10.8)
[2021-12-12 18:54] LABS: ALT 32 U/L (16-63); AST 20 U/L (15-37); Albumin 3.9 g/dL (3.4-5.0); Alkaline Phosphatase 143 U/L (46-116); Anion Gap 5.5 mmol/L (3-11); BUN 13 mg/dL (7-18); Bilirubin, Total 0.3 mg/dL (0.2-1.0); CO2 31.5 mmol/L (21.0-32.0); CREATININE 0.9 mg/dL (0.70-1.30); Calcium 9.2 mg/dL (8.5-10.1); Chloride 103 mmol/L (98-107); ETHANOL BLOOD 3.9 mg/dL (<10); Glucose 97 mg/dL (74-106); Potassium 4.4 mmol/L (3.5-5.1); Sodium 140 mmol/L (136-145); TSH (W/Ref FT4) 2.72 uIU/mL (0.36-3.74); Total Protein 7.5 g/dL (6.4-8.2); Troponin I < 50 ng/L (<or=60)
[2021-12-12] MEDS: LORazepam 2 MG/ML VIAL 1 MG IVP (18:57)
--- NOTE | 2021-12-12 19:00 | DI.CT_ITS ---
Exam(s) CT HEAD WO EXAM: CT HEAD WO CLINICAL HISTORY: seizure, AMS, hx of possible aneurysm. TECHNIQUE: Imaging Protocol: Axial computed tomography images with coronal and sagittal reformatted images were created and reviewed COMPARISON: CT CT HEAD WO from 01/05/2021 FINDINGS: There is moderate generalized cerebral atrophy and there is right frontal encephalomalacia presumably representing prior infarction period. No evidence of acute intracranial hemorrhage, mass effect, or midline shift. The orbital structures are unremarkable. The temporal bone structures appear intact. Calvarium: Normal. Visualized Paranasal sinuses/Mastoids: Mild mucoperiosteal thickening maxillary antra and ethmoid sin uses. IMPRESSION: No evidence of acute intracranial process.. RADIATION DOSE DELIVERED: 784.86mGy.cm Total DLP 784.86mGy.cm Total DLP !Error CTDIvol DATA REPOSITORY: All CT scans at this facility are submitted to the National Radiology Data Registry (NRDR) Dose Index Registry (DIR) with the [employer] (ACR). RADIATION OPTIMIZATION: All CT scans at this facility use at least one of these dose optimization te chniques: automated exposure control; mA and/or kV adjustment per patient size (includes targeted exa ms where dose is matched to clinical indication); or iterative reconstruction.
--- NOTE | 2021-12-12 19:29 | DI.VRAD_ITS ---
PROCEDURE INFORMATION: Exam: CT Head Without Contrast Exam date and time: 12/12/2021 19:13 Age: 76 years old Clinical indication: Other: Seizure, HX cerebral aneurysm TECHNIQUE: Imaging protocol: Computed tomography of the head without contrast. Radiation optimization: All CT scans at this facility use at least one of these dose optimization techniques: automated exposure control; mA and/or kV adjustment per patient size (includes targeted exams where dose is matched to clinical indication); or iterative reconstruction. COMPARISON: CT HEAD WO 01/05/2021 11:05 FINDINGS: Brain: Atrophy and chronic appearing white matter changes. Right frontal and temporal encephalomalacia again seen. No edema or hemorrhage. Cerebral ventricles: Ex vacuo dilation of the ventricular system. Paranasal sinuses: Moderate mucosal thickening in the right maxillary sinus worsened since prior. Maxillary hyperostosis bilaterally suggests there is chronic sinus disease. Mastoid air cells: No mastoid effusion. Bones/joints: See Paranasal sinuses finding. Soft tissues: No suspicious lesions. IMPRESSION: 1. No acute intracranial findings. 2. Sinus disease. Dictated and Authenticated by: Marjorie Guidry MD. Ordering:PRASHANTH Calvillo MD
--- NOTE | 2021-12-12 19:29 | DI.VRAD_ITS ---
PROCEDURE INFORMATION: Exam: XR Chest Exam date and time: 12/12/2021 19:08 Age: 76 years old Clinical indication: Other: Seizure, HX cerebral aneurysm TECHNIQUE: Imaging protocol: XR of the chest. Views: 1 view. COMPARISON: XR CHEST 1V IN DI DEPT 01/05/2021 11:13 FINDINGS: Lungs: Mild hyperinflation without airspace consolidation. Pleural spaces: No pleural effusion. No pneumothorax. Heart/Mediastinum: No cardiomegaly. Tortuous or aneurysmal ascending aorta stable configuration since prior. Bones/joints: No acute fracture. IMPRESSION: Mild hyperinflation without airspace consolidation. Dictated and Authenticated by: Marjorie Guidry MD. Ordering:PRASHANTH Calvillo MD
[2021-12-12 21:17] LABS: Bilirubin Negative (Negative); Blood Large (Negative); Clarity Clear (Clear); Glucose Negative (Negative); Ketones Negative (Negative); Leukocyte Esterase Moderate (Negative); Nitrite Positive (Negative); Specific Gravity 1.025 (1.005-1.025); Urobilinogen 0.2 EU/dL (Up TO 0.2)
[2021-12-12 21:23] LABS: Bacteria Many HPF (Negative); C & S Indicated? Yes; Casts Negative LPF (Negative); Crystals Negative HPF (Negative); Epithelial Cells Negative HPF (Negative); Mucus Negative (Negative); Other Cells Negative (Negative); RBC 20-50 HPF (0-2); WBC >50 HPF (0-5)
[2021-12-12 21:29] LABS: *AMPHETAMINES SCREEN URINE Negative (Negative); *BARBITURATES SCREEN URINE Negative (Negative); *BENZODIAZEPINES SCREEN URINE Negative (Negative); Cannabinoids THC Negative (Negative); Cocaine Screen,Urine Negative (Negative); METHADONE URINE SCREEN Negative (Negative); OPIATES URINE SCREEN Negative (Negative); Tricyclic Antidepressants Negative (Negative)
[2021-12-12] MEDS: Cefpodoxime 200 MG TAB PO (22:18)
--- NOTE | 2021-12-15 10:48 | CMACTNOTE_ITS ---
- If Service Date Differs Date of service: 12/15/21 Time of Service: 10:48 Care Management Activity Note Narcisa is seen in the ED for a breakthrough seizure and a UTI. At the request of ED provider, CM coordinates a referral to Dr. Garcia of [facility] to assist patient in obtaining a follow up appointment.
== END 2021-12-12 22:27 | disposition home or self-care (01) ==
PROVIDERS: Emergency Provider Emergency Medicine; PCP Internal Medicine
DX: G40.909 Epilepsy, unspecified, not intractable, without status epilepticus (principal); R41.82 Altered mental status, unspecified; R42 Dizziness and giddiness; Z79.899 Other long term (current) drug therapy; N39.0 Urinary tract infection, site not specified; B96.5 Pseudomonas (aeruginosa) (mallei) (pseudomallei) as the cause of diseases classified elsewhere
CPT/HCPCS: 36415; 51701; 80053; 80307; 87077; 93005; 96374; 99285; 70450; 71045; 80235; 80320; 81003; 81015; 84443; 84484; 85025; 87086; 87186; 93010; 99284; J2060

== ENCOUNTER 2022-04-15 14:37 | Outpatient (CLI) | payer MEDICARE, SELFPAY ==
[2022-04-16 15:00] LABS: PSA, Ultrasensitive 0.23 ng/mL (<= 6.5)
[2022-04-20 17:53] LABS: Testosterone, Total 375 ng/dL (240-950)
== END 2022-04-15 14:38 | disposition home or self-care (01) ==
LOC: LBO 14:40
PROVIDERS: PCP Internal Medicine; Visit Provider Nurse Practitioner Family
DX: C61 Malignant neoplasm of prostate (principal)
CPT/HCPCS: 36415; 84153; 84403

== ENCOUNTER 2022-04-29 17:52 | Emergency (ER) | payer MEDICARE, SELFPAY ==
[2022-04-29] VITALS (17 sets, daily range): BP systolic 128; BP diastolic 75; PULSE 66–86; RESP 15–19; TEMP 36.8; O2SAT 92–98
[2022-04-29] MEDS: Normal Saline 1,000 ML 1000 ML IV (18:22)
--- NOTE | 2022-04-29 18:25 | ED.GENADUL_ITS ---
Discharge Plan Disposition Patient Disposition: HOME Condition: Stable Discharge Details Clinical Impression: Breakthrough seizure, Acute UTI Primary Care Provider: Alfredo Montoya ED Provider: Alfredo Moore Home Meds and New Rx's Prescriptions: New ciprofloxacin HCl 500 mg tablet 500 mg PO Q12H Qty: 14 0RF Continued prazosin 1 mg Capsule 1 mg PO HS melatonin 3 mg Tablet 3 mg PO HS mirtazapine 7.5 mg Tablet 7.5 mg PO HS lactobacillus combo #5 150 mg (2 billion cell) Tablet,Delayed Release (Dr/Ec) 1 mg PO DAILY atorvastatin 80 mg Tablet 80 mg PO DAILY potassium chloride 10 mEq Capsule, Extended Release 10 meq PO DAILY tamsulosin 0.4 mg Capsule 0.4 mg PO BID folic acid 1 mg Tablet 1 mg PO DAILY cholecalciferol (vitamin D3) [Vitamin D3] 25 mcg (1,000 unit) Tablet 25 mcg PO DAILY lacosamide 100 mg Tablet 200 mg PO BID Discharge Instructions Instructions: Urinary Tract Infection in Men (ED), Recurrent Seizures in Adults (ED) Additional Instructions: your blood work did not show concerning findings, you do have a urinary tract infection on your urine test today follow up with your primary care provider within 1-2 weeks if you feel more ill, have multiple recurrent seizures or fevers return to the emergency department Medical Decision Making 76 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 He states he normally can tell when he will have a seizure and had a sensation about an hour ago while at home that he was going to have one then his eyes startd moving to the left and his head started turning. No loc, was conscious the entire time, no full body tonic clonic activities. He states it lasted 1-2 minutes and resolved. His called ems who brought him here. He currently has no complaints, he is caox4 speaking clearly, no focal deficits, perrl, eomi, no facial droop. Suspect this was a seizure, will check electrolyte s and ua and monitor pt stable, no complaints, blood work unremarkable, does have positive nitrites and wbc's in urine, had P. aeuriginosa last urine culture sensitive to cipro so will start this. He is stable for d/c, advised to f/u with pcp and return precautions given Differential Diagnosis Differential Diagnosis: seizure, uti, electrolyte abnormality Medical Records Medical records reviewed: Yes I reviewed the patient's medical records. Lab Data Lab results reviewed: Yes I reviewed the patient's lab results. HPI General Mode of arrival: EMS . Date/Time Provider Initiated Documentation: 04/29/22 18:01 . Limitations to Documentation: no limitations . Information obtained by: patient . History of Present Illness 76 year old M presents to the emergency department with the chief complaint of seizure , described as mild, Patient started experiencing this hour(s) (1) and it has been now resolved. No relieving factors improve symptom(s), No exacerbating factors reported . Patient notes no other symptoms.. Patient did receive the following treatments prior to arrival, none Related Data Home Medications Medication Instructions Recorded Confirmed atorvastatin 80 mg tablet 80 mg PO DAILY 01/05/21 04/29/22 cholecalciferol (vitamin D3) 25 25 mcg PO DAILY 01/05/21 04/29/22 mcg (1,000 unit) tablet (Vitamin D3) folic acid 1 mg tablet 1 mg PO DAILY 01/05/21 12/12/21 lacosamide 100 mg tablet 200 mg PO BID 01/05/21 04/29/22 potassium chloride 10 mEq 10 meq PO DAILY 01/05/21 12/12/21 capsule,extended release tamsulosin 0.4 mg capsule 0.4 mg PO BID 01/05/21 04/29/22 lactobacillus combo #5 150 mg (2 1 mg PO DAILY 12/12/21 04/29/22 billion cell) tablet,delayed release melatonin 3 mg tablet 3 mg PO HS 12/12/21 04/29/22 mirtazapine 7.5 mg tablet 7.5 mg PO HS 12/12/21 04/29/22 prazosin 1 mg capsule 1 mg PO HS 12/12/21 12/12/21 ciprofloxacin HCl 500 mg tablet 500 mg PO Q12H #14 tabs 04/29/22 Previous Rx's Medication Instructions Recorded ciprofloxacin HCl 500 mg tablet 500 mg PO Q12H #14 tabs 04/29/22 Allergies Allergy/AdvReac Type Severity Reaction Status Date / Time No Known Allergies Allergy Verified 04/29/22 18:16 General Stated Complaint: Seizure ALONZO: 3 Review of Systems All systems reviewed & are unremarkable except as noted in HPI and below Constitutional Constitutional: Denies chills, Denies fever(s) and Denies weakness Eyes Eyes: Denies loss of vision Cardiovascular Cardiovascular: Denies chest pain and Denies dyspnea Respiratory Respiratory: Denies cough and Denies dyspnea Gastrointestinal Gastrointestinal: Denies abdominal pain, Denies nausea and Denies vomiting Neurologic Neurologic: Denies loss of vision and Denies weakness PFSH All Active Problems (Updated 04/29/22 @ 20:11 by Alfredo Moore MD) Breakthrough seizure (Acute) Acute UTI (Acute) Medical History Hypertension Family History Father Personal history of malignant neoplasm prostate cancer Social History Smoking/Tobacco Use Status: Current every day Tobacco Type: cigarettes Smoking risk assessment performed?: Yes Alcohol Intake: former Drug use: Never Substance use type: does not use Do you feel safe at home: Yes Do you feel safe in your relationship?: Yes Exam Const General: no acute distress Orientation: alert HENMT Head: normal to inspection Ears: external ears normal General nose exam: external nose normal Mouth: moist mucous membranes Eyes General: appearance normal, both eyes and all related structures Neck Neck: normal visual inspection Resp Effort & Inspection: normal respiratory effort and able to speak in complete sentences Cardio Rate: regular rate GI Palpation: soft and nontender Skin General skin exam: no rashes or lesions noted Neuro General: patient alert and patient oriented x3 Extrem General: normal to inspection Psych Mental Status: mental status grossly normal Course Vital Signs Vital signs: Vital Signs Temperature 36.8 C 04/29/22 17:52 Pulse 86 04/29/22 17:52 Respiratory Rate 18 04/29/22 17:52 Blood Pressure 128/75 04/29/22 17:52 Pulse Oximetry 92 04/29/22 17:52 Temperature 36.8 C 04/29/22 17:52 Temperature Source Temporal Artery Scan 04/29/22 17:52 Pulse 86 04/29/22 17:52 Respiratory Rate 18 04/29/22 17:52 Respiratory Effort 04/29/22 18:01 Respiratory Depth Normal 04/29/22 18:01 Respiratory Pattern Normal 04/29/22 18:01 Blood Pressure 128/75 04/29/22 17:52 Blood Pressure Position Sitting 04/29/22 17:52 Pulse Oximetry 92 04/29/22 17:52 Oxygen Delivery Method Room Air 04/29/22 17:52 Oxygen Flow Rate 0 04/29/22 17:52
[2022-04-29 18:42] LABS: Abs Immature Grans 0.04 10^3/uL (0.0-0.06); Absolute Basophil Count 0.03 10^3/uL (0.0-0.2); Absolute Lymphocyte Count 1.26 10^3/uL (1.2-3.4); Absolute Monocyte Count 0.61 10^3/uL (0.1-0.8); Absolute Neutrophil Count 6.33 10^3/uL (1.2-6.7); Basophils % 0.4; Eosinophils % 3.5; HCT 47.2 % (40.0-50.0); HGB 15.4 g/dL (13.5-17.5); Immature Grans % 0.5; Lymphocytes % 14.7; MCH 30.4 pg (27.0-33.0); MCHC 32.6 % (32.0-36.0); MCV 93 fL (80-95); MPV 8.7 fL (8.0-11.0); Monocytes % 7.1; Neutrophils % 73.8; Platelet Count 191 10^3/uL (130-400); RBC 5.07 10^6/uL (4.36-5.78); RDW 13.2 % (11.8-14.1); RDW-SD 45.5 fL; WBC 8.57 10^3/uL (4.4-10.8)
[2022-04-29 18:55] LABS: ALT 29 U/L (16-63); AST 22 U/L (15-37); Albumin 3.7 g/dL (3.4-5.0); Alkaline Phosphatase 174 U/L (46-116); Anion Gap 5.9 mmol/L (3-11); BUN 12 mg/dL (7-18); Bilirubin, Total 0.3 mg/dL (0.2-1.0); CO2 31.1 mmol/L (21.0-32.0); Calcium 9.3 mg/dL (8.5-10.1); Chloride 104 mmol/L (98-107); Glucose 116 mg/dL (74-106); Potassium 4.7 mmol/L (3.5-5.1); Sodium 141 mmol/L (136-145); TSH (W/Ref FT4) 2.14 uIU/mL (0.36-3.74); Total Protein 7.5 g/dL (6.4-8.2)
[2022-04-29 19:48] LABS: Bilirubin Negative (Negative); Blood Moderate (Negative); Clarity Sl Cloudy (Clear); Glucose Negative (Negative); Ketones Negative (Negative); Leukocyte Esterase Large (Negative); Nitrite Positive (Negative); Specific Gravity 1.015 (1.005-1.025); Urobilinogen 0.2 EU/dL (Up TO 0.2)
[2022-04-29 20:01] LABS: C & S Indicated? Yes; WBC >50 HPF (0-5)
[2022-04-29] MEDS: Ciprofloxacin 500 MG TAB PO (20:15)
== END 2022-04-29 20:02 | disposition home or self-care (01) ==
PROVIDERS: Emergency Provider Emergency Medicine; PCP Internal Medicine
DX: G40.909 Epilepsy, unspecified, not intractable, without status epilepticus (principal); N39.0 Urinary tract infection, site not specified; B96.5 Pseudomonas (aeruginosa) (mallei) (pseudomallei) as the cause of diseases classified elsewhere
CPT/HCPCS: 36415; 80053; 87077; 96360; 99284; 81003; 81015; 83735; 84443; 85025; 87086; 87186

== ENCOUNTER 2022-06-13 18:58 | Emergency (ER) | payer MEDICARE, SELFPAY ==
[2022-06-13] VITALS (33 sets, daily range): BP systolic 85–106; BP diastolic 49–69; PULSE 62–97; RESP 17–25; TEMP 37–38.3; O2SAT 96
--- NOTE | 2022-06-13 19:45 | DI.CT_ITS ---
Exam(s) CT CHEST/ABD/PEL WO EXAM: CT CHEST/ABD/PEL WO CLINICAL HISTORY: cough, fever, R flank pain. TECHNIQUE: Imaging Protocol: Axial computed tomography images with coronal and sagittal reformatted images were created and reviewed CONTRAST MATERIAL: Intravenous: none Oral: None COMPARISON: No exams were available for comparison FINDINGS: CHEST: LUNGS: No infiltrates nor pleural effusions.. MEDIASTINUM: No obvious hilar nor mediastinal adenopathy. Visualized thyroid unremarkable. CARDIAC: Heart size is normal. There is no pericardial effusion.Diameter of the ascending thoracic a alfredo is enlarged, measuring 4 cm. Diameter of the aortic arch is upper normal as is diameter of the descending thoracic aorta. Coronary artery calcification noted in the left coronary artery/LAD. OSSEOUS: T12 superior endplate compression fracture which does not appear acute.. ABDOMEN: There is no ascites. LIVER: There is a 7 x 8 millimeter hypodensity in the inferior aspect of the right hepatic lobe, diff icult to evaluate without IV contrast but probably a benign cyst or hemangioma. GALLBLADDER/BILIARY: Cholelithiasis noted. There is a 1 cm diameter calculus in the gallbladder lume n. No gallbladder wall edema. No dilatation of the CBD. PANCREAS: No evidence of obvious pancreatic mass nor dilatation of the pancreatic duct. SPLEEN: Spleen is not enlarged. No obvious intrasplenic lesions. ADRENALS: There are no significant adrenal masses. KIDNEYS: There calculi in both kidneys, including in both renal pelves. Largest calculus on the righ t side measures 1.2 x 0.9 cm and is lamellated. The largest calculus on the left side measures 9 x 5 millimeters, also somewhat lamellated. These calculi are within the renal pelves. Ureters are not dilated. There are no calculi in the lower ureters nor within the urinary bladder.. Benign-appearin g cyst in left kidney noted which measures 3.8 by 3.0 cm and contains thin septation-Bosniak type 2. There are no solid renal masses. ABDOMINAL AORTA: Calcified bilobed abdominal aortic aneurysm. Maximum diameter 5 cm. Common iliac a rteries are heavily calcified but not enlarged. LYMPH NODES: There is no retroperitoneal nor para-aortic adenopathy. ABDOMINAL WALL/GI: No evidence of significant anterior abdominal wall nor inguinal hernia. No evidence of bowel obstruction. PELVIS: LYMPH NODES: There is no intrapelvic nor inguinal adenopathy. GI: No evidence of appendicitis.No evidence of sigmoid diverticulitis. URINARY BLADDER: Mild diffuse homogeneous thickening of the bladder wall noted. REPRODUCTIVE: Enlarged and lobulated and contains metallic treatment seeds as well as calcifications therein. OSSEOUS: No blastic nor lytic lesions identified. T12 compression fracture, not acute in appearance. IMPRESSION: 1. The diameter of the thoracic aorta is enlarged, measuring 4 cm. Cannot assess lumen without IV co ntrast. Coronary artery calcification. 2. Bilobed abdominal aortic aneurysm maximum diameter 5 cm. No evidence of obvious leak at this time . No significant aneurysms of the common iliac arteries evident. 3. Multiple calculi, including lamellated calculi are noted in both kidneys including the renal pelve s bilaterally. No hydronephrosis. No hydroureter. No calculi in the urinary bladder. 4. Diffuse mural thickening of the urinary bladder, most probably related to chronic outlet obstruct ion, cystitis, or a combination there of. I note that this patient has metallic treatment seeds in t he mildly enlarged and lobulated prostate gland. Benign-appearing 1 cm hypodensity in the right hepatic lobe which is probably either cyst or hemangio ma. There are also benign-appearing cyst floors adjacent cysts in the left kidney/Bosniak type 2. RADIATION DOSE DELIVERED: 1,015.27mGy.cm Total DLP DATA REPOSITORY: All CT scans at this facility are submitted to the National Radiology Data Registry (NRDR) Dose Index Registry (DIR) with the [employer] ([employer]). RADIATION OPTIMIZATION: All CT scans at this facility use at least one of these dose optimization te chniques: automated exposure control; mA and/or kV adjustment per patient size (includes targeted exa ms where dose is matched to clinical indication); or iterative reconstruction.
--- NOTE | 2022-06-13 19:51 | ED.GENADUL_ITS ---
Discharge Plan Disposition Patient Disposition: HOME Condition: Good Discharge Details Clinical Impression: Acute UTI Primary Care Provider: Alfredo Montoya ED Provider: Tariq Ventura Home Meds and New Rx's Prescriptions: New ciprofloxacin HCl [Cipro] 500 mg tablet 500 mg PO BID 7 Days Qty: 14 0RF No Action prazosin 1 mg Capsule 1 mg PO HS melatonin 3 mg Tablet 3 mg PO HS mirtazapine 7.5 mg Tablet 7.5 mg PO HS lactobacillus combo #5 150 mg (2 billion cell) Tablet,Delayed Release (Dr/Ec) 1 mg PO DAILY atorvastatin 80 mg Tablet 80 mg PO DAILY potassium chloride 10 mEq Capsule, Extended Release 10 meq PO DAILY tamsulosin 0.4 mg Capsule 0.4 mg PO BID folic acid 1 mg Tablet 1 mg PO DAILY cholecalciferol (vitamin D3) [Vitamin D3] 25 mcg (1,000 unit) Tablet 25 mcg PO DAILY lacosamide 100 mg Tablet 200 mg PO BID Discharge Instructions Instructions: Urinary Tract Infection in Men (ED) Additional Instructions: At this time you have evidence of urinary tract infection. Please continue to drink plenty of fluids. Please take the antibiotic as directed. It is been sent to your pharmacy [facility] on file. We will go with the same small pill that you took last time as you tolerated this well. If you notice any worsening of your symptoms, or any new symptoms such as vomiting, diarrhea, fever, chills, shortness of breath, chest pain, numbness, weakness, or fainting , please return immediately to the emergency department for reevaluation. Please follow up with your primary care provider as soon as possible for reassessment and reevaluation. As always, it was a pleasure participating in your medical care today. Referrals: Alfredo Montoya [Primary Care Provider] - Medical Decision Making <Ingrid Perez DO - Last Filed: 06/13/22 20:32> 76-year-old male with a history of prostate cancer, lymphoma, hypertension, CVA and seizures in the setting of fever and UTI presents for fever and generalized weakness at home today. Blood pressure 99/69, heart rate 90s. Initial temp afebrile orally, rectal temp 100.9. Patient feels warm to touch but is nontoxic. Normal oropharynx. He has rhonchi in the right lung base but otherwise no wheezing or crackles. He has no lower extremity swelling. Abdomen soft and nontender. No meningeal signs. Differential diagnosis includes UTI, influenza, COVID, pneumonia, pyelonephritis, kidney stone, PE. Consider sepsis. History of presentation does not appear consistent with meningitis at this time. He admits to a IV contrast allergy which causes hives. He states he has been pretreated with Benadryl and steroids in the past. We will obtain screening labs, d dimer, lactate, blood cultures, urinalysis, fluvid, CT chest abdomen pelvis due to complaint of fever and vague right flank pain. We will give a dose of IV Toradol, fluid bolus and reassess. Case endorsed to Dr. Ventura to follow-up on labs and imaging and final disposition. If D-dimer elevated, consider referral for CT chest to rule out PE. Will need pretreatment with IV Benadryl and IV Solu-Medrol. Symptoms do not improve and patient remains weak, consider admission overnight. Medical Records Medical records reviewed: Yes I reviewed the patient's medical records. <Tariq Ventura, - Last Filed: 06/13/22 22:17> 76-year-old male with a history of prostate cancer, lymphoma, hypertension, CVA and seizures in the setting of fever and UTI presents for fever and generalized weakness at home today. Blood pressure 99/69, heart rate 90s. Initial temp afebrile orally, rectal temp 100.9. Patient feels warm to touch but is nontoxic. Normal oropharynx. He has rhonchi in the right lung base but otherwise no wheezing or crackles. He has no lower extremity swelling. Abdomen soft and nontender. No meningeal signs. Differential diagnosis includes UTI, influenza, COVID, pneumonia, pyelonephritis, kidney stone, PE. Consider sepsis. History of presentation does not appear consistent with meningitis at this time. He admits to a IV contrast allergy which causes hives. He states he has been pretreated with Benadryl and steroids in the past. We will obtain screening labs, d dimer, lactate, blood cultures, urinalysis, fluvid, CT chest abdomen pelvis due to complaint of fever and vague right flank pain. We will give a dose of IV Toradol, fluid bolus and reassess. Case endorsed to Dr. Ventura to follow-up on labs and imaging and final disposition. If D-dimer elevated, consider referral for CT chest to rule out PE. Will need pretreatment with IV Benadryl and IV Solu-Medrol. Symptoms do not improve and patient remains weak, consider admission overnight. Dr. Ventura's documentation Patient was signed out to me by my colleague Dr. Ingrid Perez. Please refer to HPI, physical exam, assessment and plan. At time of signout we were awaiting CT imaging and labs. Urinalysis has returned and is notably positive for urinary tract infection. CT scan shows evidence of a stable aortic aneurysm, no other acute process. I did reassess the patient and he has no chest pain, no shortness of breath, no pleuritic chest pain whatsoever. Heart rate is now in the 60s. CT scan shows no evidence of focal consolidation suggestive of infarct from large clot. Patient's symptoms are clinically inconsistent with PE at this time. No indication for CTA. Patient's blood pressure is borderline low in the mid 90s. However heart rate remained stable. On reassessment the patient states that he feels much better and he would like to go home. I have given him 2 g of ceftriaxone here for evidence of his UTI. Patient notably prefers discharge over admission. I did discuss the risks and benefits of this. We will give a 500 cc bolus and reassess. The patient remains persistent that he would like to go home and does not want to be admitted. 10:14 PM After fluids the patient's blood pressure remains in the high 90s. His heart rate remains in the 60s. He continues to push for discharge and states that he feels great and would like to go home. He also states his blood pressure usually runs a little low. Clinically the patient does not appear clinically to be in septic shock. His lactate is only 0.9. He shows no evidence of acute endorgan injury. Clinically he shows no diaphoresis, no sweatiness, no pallor. He is surprisingly spry after the fluids and continues to request discharge. I had a long shared decision-making process with the patient and his significant other who is at bedside. Understanding risks and benefits, patient will be going home. He did receive 2 g of ceftriaxone here. Review of his previous cultures indicate that he did have Pseudomonas which was pansensitive. We will start him on 500 mg of Cipro twice daily. He does state that he tolerated that pill size very well. Patient gets up well, no syncope or lightheadedness. Patient stable for discharge at this time. I also made very clear to the patient and his significant other that if he is to be discharged, he needs to return immediately if he has any return or worsening of his symptoms whatsoever. Discussed red flags for which to return. I have extensively reviewed the treatment plan and discharge instructions with the patient. I have addressed all patient concerns at this time. The patient was made aware of what symptoms to monitor for that would warrant a return to the emergency department. Discussed the plan with the patient, they demonstrate verbal understanding and agreement with our assessment and plan at this time. The documentation in this chart was dictated using [employer] dictation software. Please excuse any dictation errors. FINDINGS: Lungs: [id number] centrilobular emphysema changes in the lung apices. Minimal scarring in the lung bases. Pleural spaces: Unremarkable. No pneumothorax. No pleural effusion. Heart: Coronary artery calcification. No pericardial effusion or cardiac chamber enlargement. Lymph nodes: Unremarkable. No enlarged lymph nodes. Vasculature: Calcified atherosclerotic disease. Mild ectasia of the thoracic aorta. Bones/joints: T12 vertebral body compression deformity, likely chronic. No focal suspicious osseous lesion. Soft tissues: Unremarkable. IMPRESSION: 1. Centrilobular emphysema. 2. Calcified atherosclerotic disease, including the coronary arteries, and mild ectasia of the thoracic aorta. 3. T12 vertebral body compression deformity, age indeterminate, but with a chronic appearance; correlate clinically. FINDINGS: Liver: 8 mm hypodensity in the posterior right lobe of the liver, too small to characterize, likely a benign cyst or hemangioma. Gallbladder and bile ducts: Gallstones. No gallbladder wall thickening or pericholecystic fluid. No biliary duct dilatation. Pancreas: Normal. No ductal dilation. Spleen: Normal. No splenomegaly. Adrenal glands: Normal. No mass. Kidneys and ureters: Bilateral renal vascular calcifications. Nonobstructing renal calculi are present, the largest in renal pelvis, bilaterally, measuring 14 mm on the right and 13 mm on the left. Adjacent cortical cysts in the left kidney measure up to 4.0 cm together. No hydroureteronephrosis. Stomach and bowel: Unremarkable. No obstruction. No mucosal thickening. Appendix: No evidence of appendicitis. Intraperitoneal space: Unremarkable. No free air. No significant fluid collection. Vasculature: Bilobed abdominal aortic aneurysm, beginning just below the renal artery origins, measuring to 4.2 cm diameter. Right-sided pelvic phleboliths. Lymph nodes: Unremarkable. No enlarged lymph nodes. Urinary bladder: Mild diffuse mural thickening of the urinary bladder, likely related to chronic outlet obstruction. Reproductive: Benign calcifications and metallic treatment seeds within the prostate. Bones/joints: Moderate multilevel lumbar spondylosis. No acute fracture or focal suspicious osseous lesion. Soft tissues: Unremarkable. IMPRESSION: 1. Bilateral nonobstructing renal calculi. 2. Left renal benign cysts. No further imaging required. 3. Diffuse mural thickening of the urinary bladder, likely due to chronic outlet obstruction; correlate clinically to exclude cystitis. 4. 4.2 cm abdominal aortic aneurysm. 5. Benign hypodensity in posterior right lobe of the liver. No further imaging required. Thank you for allowing us to participate in the care of your patient. Dictated and Authenticated by: Robson Lau MD 06/13/2022 9:27 PM Eastern Time ([place] HPI <Ingrid Perez DO - Last Filed: 06/13/22 20:32> General Mode of arrival: EMS . Date/Time Provider Initiated Documentation: 06/13/22 19:08 . Limitations to Documentation: no limitations . Information obtained by: patient . HPI Narrative: Patient is a 76yo M with a history of prostate cancer and lymphoma, hypertension and seizures in the setting of fever and UTI presents for fever with generalized weakness at home today. states that patient appeared weak, flushed and felt warm when she checked an oral temperature which was 100.4. His temp was 101.3 on EMS arrival. He received 1 g of Tylenol at 4:30 PM this evening at home. states that patient has had 2 urinary tract infections in the last several months, most recently last month treated with Keflex. She states he has had 2 seizures in the last 2 months in the setting of fever with UTI. She states this results in full body jerking and for which she takes lacosamide. Patient smokes a pack of cigarettes daily and has a chronic cough but states it is no worse than usual. states that patient is quite sedentary at home and has not been moving around lately. Patient denies any headache, sore throat, ear pain, chest pain, difficulty breathing, abdominal pain, vomiting, diarrhea or urinary symptoms. He does also endorse that he has had right-sided flank pain for the past few days that has been worse with movement. He denies any known injury. Related Data Home Medications Medication Instructions Recorded Confirmed atorvastatin 80 mg tablet 80 mg PO DAILY 01/05/21 06/13/22 cholecalciferol (vitamin D3) 25 25 mcg PO DAILY 01/05/21 06/13/22 mcg (1,000 unit) tablet (Vitamin D3) folic acid 1 mg tablet 1 mg PO DAILY 01/05/21 06/13/22 lacosamide 100 mg tablet 200 mg PO BID 01/05/21 06/13/22 potassium chloride 10 mEq 10 meq PO DAILY 01/05/21 06/13/22 capsule,extended release tamsulosin 0.4 mg capsule 0.4 mg PO BID 01/05/21 06/13/22 lactobacillus combo #5 150 mg (2 1 mg PO DAILY 12/12/21 06/13/22 billion cell) tablet,delayed release melatonin 3 mg tablet 3 mg PO HS 12/12/21 04/29/22 mirtazapine 7.5 mg tablet 7.5 mg PO HS 12/12/21 06/13/22 prazosin 1 mg capsule 1 mg PO HS 12/12/21 06/13/22 ciprofloxacin HCl 500 mg tablet 500 mg PO BID 7 days #14 tabs 06/13/22 (Cipro) Previous Rx's Medication Instructions Recorded ciprofloxacin HCl 500 mg tablet 500 mg PO BID 7 days #14 tabs 06/13/22 (Cipro) Allergies Allergy/AdvReac Type Severity Reaction Status Date / Time No Known Allergies Allergy Verified 04/29/22 18:16 General Stated Complaint: Fever ALONZO: 3 Review of Systems <Ingrid Perez DO - Last Filed: 06/13/22 20:32> All systems reviewed & are unremarkable except as noted in HPI and below Constitutional Constitutional: Reports as per HPI, Denies chills, Reports fever(s) and Reports weakness Eyes Eyes: Denies blurry vision ENT Ears, Nose, Mouth, and Throat: Denies dizziness, Denies sore throat and Denies throat swelling Cardiovascular Cardiovascular: Denies chest pain and Denies dyspnea Respiratory Respiratory: Denies cough and Denies dyspnea Gastrointestinal Gastrointestinal: Denies abdominal pain, Denies diarrhea and Denies vomiting Genitourinary Genitourinary: Denies hematuria and Denies dysuria Musculoskeletal Musculoskeletal: Denies back pain and Denies numbness Integumentary/Breasts Skin/Breast: Denies lesions and Denies rash Neurologic Neurologic: Denies dizziness, Denies localized weakness, Denies numbness and Reports weakness Allergic/Immunologic Allergic/Immunologic: Denies throat swelling PFSH <Ingrid Perez DO - Last Filed: 06/13/22 20:32> All Active Problems (Updated 06/13/22 @ 22:11 by Tariq Ventura DO) Acute UTI (Acute) Breakthrough seizure (Acute) Medical History (Updated 06/13/22 @ 22:11 by Tariq Ventura DO) CVA (cerebral vascular accident) Hypertension Lymphoma Prostate cancer Seizure in setting of fever and uti Surgical History (Updated 06/13/22 @ 20:26 by Ingrid Perez DO) History of craniotomy for brain bleed Family History Father Personal history of malignant neoplasm prostate cancer Social History Smoking/Tobacco Use Status: Current every day Tobacco Type: cigarettes Smoking risk assessment performed?: Yes Alcohol Intake: former Drug use: Never Substance use type: does not use Do you feel safe at home: Yes Do you feel safe in your relationship?: Yes Exam <Ingrid Perez DO - Last Filed: 06/13/22 20:32> Const General: cooperative, no acute distress and disheveled Orientation: alert, awake and oriented x3 HENMT Head: normal to inspection Ears: hearing grossly normal bilaterally, external ears normal and TM's normal bilaterally Face and sinus: normal facial exam Mouth: oral mucosae normal Throat: posterior oropharynx normal Eyes General: appearance normal, both eyes and all related structures Pupils: PERRL EOM: EOM intact bilaterally Neck Neck: normal visual inspection and No submandibular swelling Lymphatic: no lymphadenopathy noted Chest Chest: normal inspection of the chest and no tenderness Resp Effort & Inspection: normal respiratory effort and able to speak in complete sentences Auscultation: clear to auscultation bilaterally (other than rhonchi R lung base) and rhonchi right lower Cardio Rate: regular rate Rhythm: regular rhythm GI Inspection: normal to inspection Palpation: soft, not firm, not rigid and nontender Auscultation: hypoactive bowel sounds Male General Exam: Yes normal external exam Back/Spine/Pelvis Thoracic/Lumbar Spine: thoracic and lumbar spine normal to inspection Pelvis: no pain with anterior-posterior compression Skin General skin exam: no rashes or lesions noted Neuro General: patient alert, patient awake, patient oriented x3, moves all ext remities and no meningeal signs Cognition: normal cognition Speech: speech normal Motor: muscle tone normal throughout Sensory Exam: no sensory deficits noted Extrem General: normal to inspection, full ROM, capillary refill normal, no calf tenderness bilaterally and no edema Psych Appearance: grossly normal Mental Status: mental status grossly normal Speech and Movement: speech and movement normal Affect: normal affect Course <Ingrid Perez DO - Last Filed: 06/13/22 20:32> Vital Signs Vital signs: Vital Signs Pulse 97 H 06/13/22 18:53 Respiratory Rate 20 06/13/22 18:53 Blood Pressure 99/69 L 06/13/22 18:53 Pulse Oximetry 96 06/13/22 18:53 Temperature 100.9 F H 06/13/22 19:42 Temperature Source Oral 06/13/22 19:13 Pulse 97 H 06/13/22 18:53 Respiratory Rate 20 06/13/22 18:53 Respiratory Effort 06/13/22 19:00 Blood Pressure 99/69 L 06/13/22 18:53 Blood Pressure Position Sitting 06/13/22 18:53 Pulse Oximetry 96 06/13/22 18:53 Oxygen Delivery Method Room Air 06/13/22 18:53 Oxygen Flow Rate 0 06/13/22 18:53 Sign Out <Ingrid Perez DO - Last Filed: 06/13/22 20:32> Sign Out Data: Sign Out Comment: Fever and generalized weakness today. Reported history of febrile seizures with UTI. Follow-up on labs and imaging and final disposition. If D-dimer positive, consider referral for CT chest to rule out PE if indicated. Will need pretreatment with IV Benadryl and Solu-Medrol due to reported history of hives with IV contrast. Last updated by Ingrid Perez DO at 06/13/22 19:52
[2022-06-13 19:58] LABS: Lactate 0.9 mmol/L (0.6-1.4)
[2022-06-13 20:01] LABS: Abs Immature Grans 0.08 10^3/uL (0.0-0.06); Absolute Basophil Count 0.03 10^3/uL (0.0-0.2); Absolute Lymphocyte Count 1.25 10^3/uL (1.2-3.4); Absolute Monocyte Count 1.46 10^3/uL (0.1-0.8); Absolute Neutrophil Count 12.98 10^3/uL (1.2-6.7); Basophils % 0.2; Eosinophils % 0.4; HCT 41.3 % (40.0-50.0); Immature Grans % 0.5; Lymphocytes % 7.9; MCH 30.7 pg (27.0-33.0); MCHC 33.9 % (32.0-36.0); MCV 91 fL (80-95); MPV 8.7 fL (8.0-11.0); Monocytes % 9.2; Neutrophils % 81.8; Platelet Count 170 10^3/uL (130-400); RBC 4.56 10^6/uL (4.36-5.78); RDW 13.4 % (11.8-14.1); RDW-SD 44.5 fL; WBC 15.87 10^3/uL (4.4-10.8)
[2022-06-13 20:03] LABS: Absolute Eosinophil Count 0.06 10^3/uL (0.0-0.7)
[2022-06-13] MEDS: Normal Saline 250 ML 500 ML IV (20:17)
[2022-06-13] MEDS: Ketorolac 30 MG/ML VIAL IVP (20:18)
[2022-06-13 20:23] LABS: ALT 23 U/L (16-63); AST 15 U/L (15-37); Albumin 3.2 g/dL (3.4-5.0); Alkaline Phosphatase 135 U/L (46-116); Anion Gap 8.6 mmol/L (3-11); BUN 11 mg/dL (7-18); Bilirubin, Total 0.5 mg/dL (0.2-1.0); CO2 28.4 mmol/L (21.0-32.0); CREATININE 0.9 mg/dL (0.70-1.30); Calcium 8.9 mg/dL (8.5-10.1); Chloride 103 mmol/L (98-107); Estimated GFR 88.51 (mL/min/1.73m2); Glucose 110 mg/dL (74-106); Magnesium 1.7 mg/dL (1.8-2.4); Potassium 3.5 mmol/L (3.5-5.1); Sodium 140 mmol/L (136-145); Total Protein 6.8 g/dL (6.4-8.2); Troponin I < 50 ng/L (<or=60)
[2022-06-13 20:37] LABS: D-Dimer 1697 ng/mlFEU (<500)
[2022-06-13 20:52] LABS: Bilirubin Negative (Negative); Blood Large (Negative); Clarity Sl Cloudy (Clear); Glucose 100 mg/dL (Negative); Ketones Negative (Negative); Leukocyte Esterase Large (Negative); Nitrite Negative (Negative); Specific Gravity 1.015 (1.005-1.025); Urobilinogen 0.2 EU/dL (Up TO 0.2)
[2022-06-13 20:59] LABS: Bacteria Many HPF (Negative); Casts Negative LPF (Negative); Crystals Negative HPF (Negative); Epithelial Cells Few HPF (Negative); Mucus Negative (Negative)
[2022-06-13 21:00] LABS: C & S Indicated? Yes
[2022-06-13 21:03] LABS: COVID-19 PCR Negative (Negative); Influenza A PCR Negative (Negative); Influenza B PCR Negative (Negative); RSV PCR Negative (Negative)
[2022-06-13 21:18] LABS: Source Nasopharynx
--- NOTE | 2022-06-13 21:27 | DI.VRAD_ITS ---
PROCEDURE INFORMATION: Exam: CT Chest Without Contrast; Diagnostic Exam date and time: 06/13/2022 8:25 PM Age: 76 years old Clinical indication: Abdominal pain; Flank; Right-sided TECHNIQUE: Imaging protocol: Diagnostic computed tomography of the chest without contrast. COMPARISON: XR CHEST 1V IN DI DEPT 12/12/2021 7:08 PM FINDINGS: Lungs: [id number] centrilobular emphysema changes in the lung apices. Minimal scarring in the lung bases. Pleural spaces: Unremarkable. No pneumothorax. No pleural effusion. Heart: Coronary artery calcification. No pericardial effusion or cardiac chamber enlargement. Lymph nodes: Unremarkable. No enlarged lymph nodes. Vasculature: Calcified atherosclerotic disease. Mild ectasia of the thoracic aorta. Bones/joints: T12 vertebral body compression deformity, likely chronic. No focal suspicious osseous lesion. Soft tissues: Unremarkable. IMPRESSION: 1. Centrilobular emphysema. 2. Calcified atherosclerotic disease, including the coronary arteries, and mild ectasia of the thoracic aorta. 3. T12 vertebral body compression deformity, age indeterminate, but with a chronic appearance; correlate clinically. PROCEDURE INFORMATION: Exam: CT Abdomen And Pelvis Without Contrast Exam date and time: 06/13/2022 8:25 PM Age: 76 years old Clinical indication: Abdominal pain; Flank; Right-sided TECHNIQUE: Imaging protocol: Computed tomography of the abdomen and pelvis without contrast. COMPARISON: MR PELVIS WO 02/14/2020 8:09 AM FINDINGS: Liver: 8 mm hypodensity in the posterior right lobe of the liver, too small to characterize, likely a benign cyst or hemangioma. Gallbladder and bile ducts: Gallstones. No gallbladder wall thickening or pericholecystic fluid. No biliary duct dilatation. Pancreas: Normal. No ductal dilation. Spleen: Normal. No splenomegaly. Adrenal glands: Normal. No mass. Kidneys and ureters: Bilateral renal vascular calcifications. Nonobstructing renal calculi are present, the largest in renal pelvis, bilaterally, measuring 14 mm on the right and 13 mm on the left. Adjacent cortical cysts in the left kidney measure up to 4.0 cm together. No hydroureteronephrosis. Stomach and bowel: Unremarkable. No obstruction. No mucosal thickening. Appendix: No evidence of appendicitis. Intraperitoneal space: Unremarkable. No free air. No significant fluid collection. Vasculature: Bilobed abdominal aortic aneurysm, beginning just below the renal artery origins, measuring to 4.2 cm diameter. Right-sided pelvic phleboliths. Lymph nodes: Unremarkable. No enlarged lymph nodes. Urinary bladder: Mild diffuse mural thickening of the urinary bladder, likely related to chronic outlet obstruction. Reproductive: Benign calcifications and metallic treatment seeds within the prostate. Bones/joints: Moderate multilevel lumbar spondylosis. No acute fracture or focal suspicious osseous lesion. Soft tissues: Unremarkable. IMPRESSION: 1. Bilateral nonobstructing renal calculi. 2. Left renal benign cysts. No further imaging required. 3. Diffuse mural thickening of the urinary bladder, likely due to chronic outlet obstruction; correlate clinically to exclude cystitis. 4. 4.2 cm abdominal aortic aneurysm. 5. Benign hypodensity in posterior right lobe of the liver. No further imaging required. Dictated and Authenticated by: Robson Lau MD. Ordering:TAO Quintero MD
[2022-06-13] MEDS: cefTRIAXone 2 GM/50 ML BAG IVPB (21:30)
== END 2022-06-13 22:27 | disposition home or self-care (01) ==
PROVIDERS: Physician Assistant; Emergency Provider Student in an Organized Health Care Education/Training Program; PCP Internal Medicine
DX: N39.0 Urinary tract infection, site not specified (principal); I10 Essential (primary) hypertension; R53.1 Weakness; F17.210 Nicotine dependence, cigarettes, uncomplicated; Z20.822 Contact with and (suspected) exposure to COVID-19
CPT/HCPCS: 71250; 80053; 87040; 87077; 87637; 96365; 96375; 99284; 74176; 81003; 81015; 83605; 83735; 84484; 85025; 85379; 87086; 87186; J1885

== ENCOUNTER 2022-06-20 14:43 | Emergency (ER) | payer MEDICARE, SELFPAY ==
[2022-06-20] VITALS (32 sets, daily range): BP systolic 109–131; BP diastolic 59–75; PULSE 57–78; RESP 14–22; TEMP 36.3; O2SAT 94–97
--- NOTE | 2022-06-20 15:12 | ED.GENADUL_ITS ---
Discharge Plan Disposition Patient Disposition: HOME Condition: Improving Discharge Details Chief Complaint: Seizure Clinical Impression: Seizure Primary Care Provider: Alfredo Montoya ED Provider: Rajinder Burger Home Meds and New Rx's Prescriptions: No Action prazosin 1 mg Capsule 1 mg PO HS melatonin 3 mg Tablet 3 mg PO HS mirtazapine 7.5 mg Tablet 7.5 mg PO HS lactobacillus combo #5 150 mg (2 billion cell) Tablet,Delayed Release (Dr/Ec) 1 mg PO DAILY atorvastatin 80 mg Tablet 80 mg PO DAILY potassium chloride 10 mEq Capsule, Extended Release 10 meq PO DAILY tamsulosin 0.4 mg Capsule 0.4 mg PO BID folic acid 1 mg Tablet 1 mg PO DAILY cholecalciferol (vitamin D3) [Vitamin D3] 25 mcg (1,000 unit) Tablet 25 mcg PO DAILY lacosamide 100 mg Tablet 200 mg PO BID Discharge Instructions Instructions: Recurrent Seizures in Adults (ED) Additional Instructions: Please follow-up with your primary neurologist. Please return to the emergency department for any worsening symptoms. Medical Decision Making 36-year-old male history of seizure disorder presents with breakthrough seizure today, witnessed seizure at home of unknown quality, patient compliant with lacosamide no recent change in dosage, was seen by his neurologist in the last couple of weeks, follows with neurology in [place]. Afebrile nontoxic nonmeningeal alert oriented cranial nerves intact 5 and 5 strength upper and lower extremities, no ataxia, likely simple recurrent breakthrough seizure low suspicion for major encephalitis intracranial hemorrhage trauma metabolic derangement or infection. Patient endorses compliance with medication. Will send lacosamide level. Will obtain basic labs to assess electrolytes. Close reassessment of mental status if stable will likely be discharged home with close follow-up with neurology 17: 47 patient resting comfortably no acute distress no seizure activity here in department. Labs unremarkable. Awaiting lacosamide level which will take some time this is a send off. Patient family would like to go home. We will continue with her medications. We will move their neurology appointment forward. Given strict return precautions for any worsening symptoms. HPI General Date/Time Provider Initiated Documentation: 06/20/22 14:51 . HPI Narrative: 76-year-old male history of seizure disorder on lacosamide presents after witnessed seizure at home, has had multiple breakthrough seizure over the past several months, follows with neurologist in [place], no recent change in his antiepileptic dosages. Denies headache chest pain shortness of breath fevers chills nausea vomiting or other systemic signs of illness. Related Data Home Medications Medication Instructions Recorded Confirmed atorvastatin 80 mg tablet 80 mg PO DAILY 01/05/21 06/20/22 cholecalciferol (vitamin D3) 25 25 mcg PO DAILY 01/05/21 06/20/22 mcg (1,000 unit) tablet (Vitamin D3) folic acid 1 mg tablet 1 mg PO DAILY 01/05/21 06/20/22 lacosamide 100 mg tablet 200 mg PO BID 01/05/21 06/20/22 potassium chloride 10 mEq 10 meq PO DAILY 01/05/21 06/20/22 capsule,extended release tamsulosin 0.4 mg capsule 0.4 mg PO BID 01/05/21 06/20/22 lactobacillus combo #5 150 mg (2 1 mg PO DAILY 12/12/21 06/20/22 billion cell) tablet,delayed release melatonin 3 mg tablet 3 mg PO HS 12/12/21 06/20/22 mirtazapine 7.5 mg tablet 7.5 mg PO HS 12/12/21 06/20/22 prazosin 1 mg capsule 1 mg PO HS 12/12/21 06/20/22 Allergies Allergy/AdvReac Type Severity Reaction Status Date / Time Iodinated Contrast Media Allergy Unverified 06/20/22 14:58 General Stated Complaint: Seizure ALONZO: 3 Review of Systems Narrative: Review of Systems Constitutional: negative Eyes: negative ENT: negative Cardiovascular: negative Respiratory: negative Gastrointestinal: negative : negative Musculoskeletal: negative Skin: negative Neurologic: Seizure Psych: negative PFSH All Active Problems (Updated 06/20/22 @ 17:48 by Rajinder Burger MD) Acute UTI (Acute) Seizure (Acute) Breakthrough seizure (Acute) Medical History (Updated 06/20/22 @ 17:48 by Rajinder Burger MD) CVA (cerebral vascular accident) Hypertension Lymphoma Prostate cancer Seizure in setting of fever and uti Surgical History (Updated 06/13/22 @ 20:26 by Ingrid Perez DO) History of craniotomy for brain bleed Family History Father Personal history of malignant neoplasm prostate cancer Social History Smoking/Tobacco Use Status: Current every day Tobacco Type: cigarettes Smoking risk assessment performed?: Yes Alcohol Intake: former Drug use: Never Substance use type: does not use Do you feel safe at home: Yes Do you feel safe in your relationship?: Yes Exam Narrative Exam Narrative: Physical Examination General: alert, awake, cooperative, resting comfortably, no acute distress HEENT: normocephalic, atraumatic; PERRL, EOM intact, conjunctiva normal; no nasal discharge; moist mucous membranes, oral and pharyngeal mucosa normal, tolerating secretions Neck: supple, trachea midline; full ROM Chest: normal to inspection Respiratory: normal respiratory effort, speaking in full sentences, clear to auscultation, no wheezing, rales or rhonchi Cardiac: regular rate, regular rhythm, S1S2 intact, no murmurs rubs or gallops GI: abdomen soft, non-tender, non-distended; no palpable mass or hepatosplenomegaly Skin: no lesions, rashes or trauma appreciated Neuro: AAOx3, normal speech, moving all extremities; cranial nerves II through XII intact, 5 and 5 strength upper and lower extremities, no ataxia Extremities: Atraumatic, no peripheral edema Psych: Appropriate mood and affect Course Vital Signs Vital signs: Vital Signs Temperature 36.3 C L 06/20/22 14:48 Pulse 71 06/20/22 14:48 Respiratory Rate 18 06/20/22 14:48 Blood Pressure 125/75 06/20/22 14:48 Pulse Oximetry 95 06/20/22 14:48 Temperature 36.3 C L 06/20/22 14:48 Temperature Source Temporal Artery Scan 06/20/22 14:48 Pulse 71 06/20/22 14:48 Respiratory Rate 18 06/20/22 14:48 Respiratory Effort 06/20/22 15:10 Respiratory Depth Normal 06/20/22 15:10 Respiratory Pattern Normal 06/20/22 15:10 Blood Pressure 125/75 06/20/22 14:48 Blood Pressure Position Supine 06/20/22 14:48 Pulse Oximetry 95 06/20/22 14:48 Oxygen Delivery Method Room Air 06/20/22 14:48 Oxygen Flow Rate 0 06/20/22 14:48 Pain Level 0 06/20/22 14:48
[2022-06-20 15:28] LABS: Abs Immature Grans 0.04 10^3/uL (0.0-0.06); Absolute Basophil Count 0.03 10^3/uL (0.0-0.2); Absolute Eosinophil Count 0.44 10^3/uL (0.0-0.7); Absolute Lymphocyte Count 1.28 10^3/uL (1.2-3.4); Absolute Monocyte Count 0.54 10^3/uL (0.1-0.8); Absolute Neutrophil Count 4.99 10^3/uL (1.2-6.7); Basophils % 0.4; HCT 42.1 % (40.0-50.0); HGB 13.8 g/dL (13.5-17.5); Immature Grans % 0.5; Lymphocytes % 17.5; MCH 30.1 pg (27.0-33.0); MCHC 32.8 % (32.0-36.0); MCV 92 fL (80-95); MPV 8.4 fL (8.0-11.0); Monocytes % 7.4; Neutrophils % 68.2; Platelet Count 221 10^3/uL (130-400); RBC 4.59 10^6/uL (4.36-5.78); RDW 13.5 % (11.8-14.1); RDW-SD 45.8 fL; WBC 7.32 10^3/uL (4.4-10.8)
[2022-06-20 16:11] LABS: ALT 28 U/L (16-63); AST 17 U/L (15-37); Albumin 3.3 g/dL (3.4-5.0); Alkaline Phosphatase 130 U/L (46-116); Anion Gap 2.8 mmol/L (3-11); BUN 12 mg/dL (7-18); Bilirubin, Total 0.2 mg/dL (0.2-1.0); CO2 33.2 mmol/L (21.0-32.0); CREATININE 0.9 mg/dL (0.70-1.30); Calcium 9.2 mg/dL (8.5-10.1); Chloride 106 mmol/L (98-107); Estimated GFR 88.51 (mL/min/1.73m2); Glucose 117 mg/dL (74-106); Potassium 4.1 mmol/L (3.5-5.1); Sodium 142 mmol/L (136-145); Total Protein 6.4 g/dL (6.4-8.2)
[2022-06-23 11:16] LABS: Lacosamide 11.8 mcg/mL (1.0 - 10.0)
--- NOTE | 2022-06-24 09:16 | NUR.NOTE ---
Nursing Note: Accessed pt record for the send out lacosimide result. Dr. Ventura will speak with the regarding this result.
--- NOTE | 2022-06-24 09:19 | W.ED.FU ---
Date of service: 06/24/22 Time of Service: 09:20 Follow Up Plan: Patient called looking for the lacosamide value. Value was 11.8. I discussed this and its relevance with the patient. And the patient's family member. Patient is following up closely with his neurologist at [facility]. No new seizures since then. Patient doing well otherwise. I have extensively reviewed the treatment plan and discharge instructions with the patient and their family. I have addressed all patient concerns at this time. The patient and family was made aware of what symptoms to monitor for that would warrant a return to the emergency department. Discussed the plan with the patient and family, they demonstrate verbal understanding and agreement with our assessment and plan at this time. The documentation in this chart was dictated using [employer] dictation software. Please excuse any dictation errors.
== END 2022-06-20 18:01 | disposition home or self-care (01) ==
PROVIDERS: Emergency Provider Emergency Medicine; PCP Internal Medicine
DX: G40.909 Epilepsy, unspecified, not intractable, without status epilepticus (principal); I10 Essential (primary) hypertension
CPT/HCPCS: 80053; 99282; 80235; 85025; 99283

== ENCOUNTER 2022-10-15 14:58 | Outpatient (CLI) | payer MEDICARE, SELFPAY ==
[2022-10-17 10:53] LABS: PSA, Ultrasensitive 0.17 ng/mL (<= 6.5)
[2022-10-20 13:14] LABS: Testosterone, Total 345 ng/dL (240-950)
== END 2022-10-15 14:59 | disposition home or self-care (01) ==
LOC: LBO 15:02
PROVIDERS: PCP Internal Medicine; Visit Provider Nurse Practitioner Family
DX: C61 Malignant neoplasm of prostate (principal)
CPT/HCPCS: 36415; 84153; 84403

== ENCOUNTER 2022-11-09 16:38 | Outpatient (CLI) | payer MEDICARE, SELFPAY ==
[2022-11-09 16:21] LABS: Abs Immature Grans 0.05 10^3/uL (0.0-0.06); Absolute Basophil Count 0.05 10^3/uL (0.0-0.2); Absolute Eosinophil Count 0.32 10^3/uL (0.0-0.7); Absolute Lymphocyte Count 1.23 10^3/uL (1.2-3.4); Basophils % 0.4; Eosinophils % 2.8; HCT 46.8 % (40.0-50.0); HGB 15.1 g/dL (13.5-17.5); Immature Grans % 0.4; Lymphocytes % 10.7; MCHC 32.3 % (32.0-36.0); MCV 93 fL (80-95); MPV 9.5 fL (8.0-11.0); Monocytes % 6.5; Neutrophils % 79.2; RBC 5.04 10^6/uL (4.36-5.78); RDW 13.7 % (11.8-14.1); RDW-SD 46.5 fL; WBC 11.46 10^3/uL (4.4-10.8)
[2022-11-09 16:23] LABS: Absolute Monocyte Count 0.74 10^3/uL (0.1-0.8); Absolute Neutrophil Count 9.08 10^3/uL (1.2-6.7)
[2022-11-09 16:31] LABS: Diff Comment PLT Morph Reviewed
[2022-11-09 16:32] LABS: Platelet Count 224 10^3/uL (130-400); RBC Morphology Normal
[2022-11-09 16:35] LABS: ALT 25 U/L (16-63); AST 15 U/L (15-37); Albumin 3.5 g/dL (3.4-5.0); Alkaline Phosphatase 154 U/L (46-116); Anion Gap 6.2 mmol/L (3-11); BUN 15 mg/dL (7-18); Bilirubin, Total 0.3 mg/dL (0.2-1.0); CO2 31.8 mmol/L (21.0-32.0); CREATININE 0.8 mg/dL (0.70-1.30); Calcium 9.4 mg/dL (8.5-10.1); Chloride 107 mmol/L (98-107); Estimated GFR 91.15 (mL/min/1.73m2); Glucose 128 mg/dL (74-106); LDH 126 U/L (85-227); Potassium 3.8 mmol/L (3.5-5.1); Sodium 145 mmol/L (136-145)
== END 2022-11-09 16:39 | disposition home or self-care (01) ==
LOC: LBO 16:42
PROVIDERS: PCP Internal Medicine; Visit Provider Internal Medicine Medical Oncology
DX: C61 Malignant neoplasm of prostate (principal); C82.98 Follicular lymphoma, unspecified, lymph nodes of multiple sites
CPT/HCPCS: 36415; 80053; 83615; 85025

== ENCOUNTER 2023-01-10 09:50 | Emergency (ER) | payer MEDICARE, SELFPAY ==
[2023-01-10 09:49] VITALS: BP 141/69; PULSE 60; RESP 18; TEMP 36.7; O2SAT 92
--- NOTE | 2023-01-10 10:00 | DI.RAD_ITS ---
Exam(s) XR SHOULDER LT COMPLETE 2+V EXAM: XR SHOULDER LT COMPLETE 2+V CLINICAL HISTORY: left shoulder pain. TECHNIQUE: 2D digital imaging was performed of the left shoulder. Four images were obtained. AP, G rashey, Y-view and axillary views were obtained. COMPARISON: CT CT UPPER EXTREMITY LT WO from 01/10/2023 FINDINGS: BONES: On the AP views there is a lucency seen through the humeral neck particularly at its medial as pect suspicious for nondisplaced fracture. No bony destructive lesion is seen. JOINTS: No dislocation present. Degenerative changes are seen at the glenohumeral and acromioclavicul ar joints. SOFT TISSUE: Normal. IMPRESSION: Findings suspicious for nondisplaced fracture through the humeral neck. DATA REPOSITORY: RADIATION DOSE DELIVERED:
--- NOTE | 2023-01-10 10:00 | DI.CT_ITS ---
Exam(s) CT HEAD CERVICAL SPINE WO EXAM: CT HEAD CERVICAL SPINE WO CLINICAL HISTORY: fall, [place]. TECHNIQUE: Imaging Protocol: Axial computed tomography images with coronal and sagittal reformatted images were created and reviewed COMPARISON: CT CT HEAD WO from 12/12/2021 FINDINGS: CT Head: Ventricles and Extra axial spaces: Normal in size and morphology for the patient's age. Hemorrhage: None. Cerebral parenchyma: There is no acute territorial infarct. There is an area of encephalomalacia inv olving the right frontal lobe. There are areas of decreased attenuation in the white matter most con sistent with small vessel ischemic disease. Midline shift: None. Brainstem/Cerebellum: Normal. Calvarium: Normal. Visualized Paranasal sinuses/Mastoids: Clear. Soft Tissues: There is a subcutaneous hematoma overlying the right parietal bone. CT Cervical Spine: Bones: No acute fracture or subluxation. Age-appropriate degenerative changes are seen in the cervica l spine. Soft Tissues: Unremarkable. Lung Apices: Emphysematous changes are seen in the lung apices. IMPRESSION: 1. No acute intracranial process. 2. Subcutaneous hematoma overlying the right parietal bone. 3. No acute fracture or subluxation in the cervical spine. RADIATION DOSE DELIVERED: 1,606.34mGy.cm Total DLP DATA REPOSITORY: All CT scans at this facility are submitted to the National Radiology Data Registry (NRDR) Dose Index Registry (DIR) with the [employer] (ACR). RADIATION OPTIMIZATION: All CT scans at this facility use at least one of these dose optimization te chniques: automated exposure control; mA and/or kV adjustment per patient size (includes targeted exa ms where dose is matched to clinical indication); or iterative reconstruction.
--- NOTE | 2023-01-10 10:15 | DI.RAD_ITS ---
Exam(s) XR CHEST 1V IN DI DEPT EXAM: XR CHEST 1V IN DI DEPT CLINICAL HISTORY: fall TECHNIQUE: 2D digital imaging was performed of the chest. One image was obtained. An AP view was ob tained. COMPARISON: CR,XR XR CHEST 1V IN DI DEPT from 12/12/2021 FINDINGS: MEDIASTINUM: Normal. HEART: Normal. PULMONARY VASCULATURE: Normal. LUNGS: Clear. PLEURAL SPACE: No pleural effusion or pneumothorax. BONE:Within normal limits for the patient's age. OTHER FINDINGS:Normal. IMPRESSION: No acute pulmonary findings. DATA REPOSITORY: RADIATION DOSE DELIVERED:
[2023-01-10 10:20] VITALS: BP 132/67; PULSE 60; RESP 17; O2SAT 93
[2023-01-10] MEDS: Lacosamide 100 MG TAB 200 MG PO (11:04)
--- NOTE | 2023-01-10 11:11 | DI.VRAD_ITS ---
PROCEDURE INFORMATION: Exam: CT Head Without Contrast Exam date and time: 01/10/2023 10:34 AM Age: 77 years old Clinical indication: Other: Fall, head injury TECHNIQUE: Imaging protocol: Computed tomography of the head without contrast. Radiation optimization: All CT scans at this facility use at least one of these dose optimization techniques: automated exposure control; mA and/or kV adjustment per patient size (includes targeted exams where dose is matched to clinical indication); or iterative reconstruction. COMPARISON: CT HEAD WO 12/12/2021 7:13 PM FINDINGS: Brain: No acute intracranial hemorrhage.. Well delineated low-attenuation in the right frontal lobe consistent with stable prior infarction from 2021. There is moderate diffuse heterogeneity of the white matter attenuation, consistent with chronic white matter ischemic changes. Moderate cerebral atrophy Cerebral ventricles: No ventriculomegaly. Paranasal sinuses: Visualized sinuses are unremarkable. No fluid levels. Mastoid air cells: Visualized mastoid air cells are well aerated. Dental: Periapical lucencies in the maxilla and mandible may represent periapical abscess. Bones/joints: See Soft tissues finding. Soft tissues: Contusion in the extra calvarial soft tissues superiorly on the right. 3.4 x 1.2 cm. IMPRESSION: 1. Contusion in the extra calvarial soft tissues superiorly on the right. 3.4 x 1.2 cm. 2. No acute intracranial hemorrhage.. 3. Periapical lucencies in the maxilla and mandible may represent periapical abscess. PROCEDURE INFORMATION: Exam: CT Cervical Spine Without Contrast Exam date and time: 01/10/2023 10:34 AM Age: 77 years old Clinical indication: Other: Fall, head injury TECHNIQUE: Imaging protocol: Computed tomography of the cervical spine without contrast. Radiation optimization: All CT scans at this facility use at least one of these dose optimization techniques: automated exposure control; mA and/or kV adjustment per patient size (includes targeted exams where dose is matched to clinical indication); or iterative reconstruction. COMPARISON: CT CHEST/ABD/PEL WO 06/13/2022 8:25 PM FINDINGS: Bones/joints: No acute fracture of the cervical spine. No subluxation or dislocation of the cervical spine. Intervertebral disc space narrowing C3/C4 and C5 through C7 may represent degenerative disc disease.. Anterior osteophyte formation C3 through C7. Posterior osteophyte formation C3 through C7. Degenerative changes in the facets at multiple levels. Degenerative changes at C1/C2 Lungs: Emphysematous changes in the apices. Thyroid: The thyroid is unremarkable Soft tissues: Unremarkable. IMPRESSION: 1. No acute fracture of the cervical spine. 2. No subluxation or dislocation of the cervical spine. 3. Intervertebral disc space narrowing C3/C4 and C5 through C7 may represent degenerative disc disease.. Dictated and Authenticated by: Amanda Bakre MD. Ordering:RAUL Hernandez MD
[2023-01-10 11:15] VITALS: BP 139/60; PULSE 60; RESP 18; O2SAT 97
--- NOTE | 2023-01-10 11:18 | DI.VRAD_ITS ---
PROCEDURE INFORMATION: Exam: XR Chest Exam date and time: 01/10/2023 10:52 AM Age: 77 years old Clinical indication: Other: Fall TECHNIQUE: Imaging protocol: Radiologic exam of the chest. Views: 1 view. COMPARISON: CT CHEST/ABD/PEL WO 06/13/2022 8:25 PM FINDINGS: Lungs: Unremarkable. No consolidation. Pleural spaces: Unremarkable. No pleural effusion. No pneumothorax. Heart/Mediastinum: Unremarkable. No cardiomegaly. Bones/joints: Unremarkable. IMPRESSION: No acute findings. Dictated and Authenticated by: Chris Mehta MD. Ordering:RAUL Hernandez MD
--- NOTE | 2023-01-10 11:19 | DI.VRAD_ITS ---
PROCEDURE INFORMATION: Exam: XR Left Shoulder Exam date and time: 01/10/2023 10:46 AM Age: 77 years old Clinical indication: Other: Left shoulder pain TECHNIQUE: Imaging protocol: Radiologic exam of the left shoulder. Views: 2 or more views. COMPARISON: CT HEAD CERVICAL SPINE WO 01/10/2023 10:34 AM FINDINGS: Bones/joints: Mild glenohumeral joint degenerative changes. Possible nondisplaced fracture of the humeral neck. Subchondral cystic degenerative changes in the humeral head. Soft tissues: Normal. IMPRESSION: Possible nondisplaced fracture of the humeral neck. Consider CT scan of the shoulder. Dictated and Authenticated by: Chris Mehta MD. Ordering:RAUL Hernandez MD
--- NOTE | 2023-01-10 11:30 | DI.CT_ITS ---
Exam(s) CT UPPER EXTREMITY LT WO EXAM: CT UPPER EXTREMITY LT WO CLINICAL HISTORY: suspected fracture. TECHNIQUE: Imaging Protocol: Axial computed tomography images with coronal and sagittal reformatted images were created and reviewed. COMPARISON: CR,XR XR SHOULDER LT COMPLETE 2+V from 01/10/2023 FINDINGS: Bones: There is an acute nondisplaced fracture involving the greater tuberosity and extending into t he humeral neck. Bones are osteopenic. No cellulitic or osteomyelitic changes are identified. Ther e are degenerative changes seen at both the glenohumeral and acromioclavicular joints. No lytic or s clerotic lesions are identified. Soft Tissues: Centrilobular emphysematous changes are present in the lungs. Coronary artery calcific ations and/or stents are present. There is atherosclerosis of the thoracic aorta. IMPRESSION: There is a nondisplaced fracture involving the inferior greater tuberosity and humeral neck. RADIATION DOSE DELIVERED: 457.62mGy.cm Total DLP 457.62mGy.cm Total DLP DATA REPOSITORY: All CT scans at this facility are submitted to the National Radiology Data Registry (NRDR) Dose Index Registry (DIR) with the [employer] (ACR). RADIATION OPTIMIZATION: All CT scans at this facility use at least one of these dose optimization te chniques: automated exposure control; mA and/or kV adjustment per patient size (includes targeted exa ms where dose is matched to clinical indication); or iterative reconstruction.
--- NOTE | 2023-01-10 12:08 | DI.VRAD_ITS ---
PROCEDURE INFORMATION: Exam: CT Left Upper Extremity Without Contrast, Shoulder Exam date and time: 01/10/2023 11:42 AM Age: 77 years old Clinical indication: Other: Suspected FX TECHNIQUE: Imaging protocol: Computed tomography of the left upper extremity without contrast. Exam focused on the shoulder. Radiation optimization: All CT scans at this facility use at least one of these dose optimization techniques: automated exposure control; mA and/or kV adjustment per patient size (includes targeted exams where dose is matched to clinical indication); or iterative reconstruction. COMPARISON: CR XR SHOULDER LT COMPLETE 2+V 01/10/2023 10:46 AM FINDINGS: Bones/joints: No acromioclavicular separation. The clavicle is intact. The scapula is intact. Glenoid is intact. Subtle nondisplaced fracture of the inferolateral greater tuberosity and humeral neck. Soft tissues: Soft tissue swelling. Lungs: Emphysematous lung disease. Other findings: Moderate calcified coronary artery disease. IMPRESSION: Subtle nondisplaced fracture of the humeral neck and inferolateral greater tuberosity. Dictated and Authenticated by: Chris Mehta MD. Ordering:RAUL Hernandez MD
[2023-01-10 12:10] VITALS: BP 118/65; PULSE 65; RESP 18; O2SAT 94
--- NOTE | 2023-01-10 13:05 | W.ED.GENAD ---
Discharge Plan Disposition Patient Disposition: Home Discharge Details Clinical Impression: Fracture of shoulder, Head injury Primary Care Provider: Alfredo Montoya ED Provider: Mary Saldivar Home Meds and New Rx's Prescriptions: Continued prazosin 1 mg Capsule 1 mg PO HS melatonin 3 mg Tablet 3 mg PO HS mirtazapine 7.5 mg Tablet 7.5 mg PO HS lactobacillus combo #5 150 mg (2 billion cell) Tablet,Delayed Release (Dr/Ec) 1 mg PO DAILY atorvastatin 80 mg Tablet 80 mg PO DAILY potassium chloride 10 mEq Capsule, Extended Release 10 meq PO DAILY tamsulosin 0.4 mg Capsule 0.4 mg PO BID folic acid 1 mg Tablet 1 mg PO DAILY cholecalciferol (vitamin D3) [Vitamin D3] 25 mcg (1,000 unit) Tablet 25 mcg PO DAILY lacosamide 100 mg Tablet 200 mg PO BID Discharge Instructions Instructions: Head Injury (ED) Additional Instructions: Take Tylenol 650 mg every 6 hours as needed for pain Use caution with ambulation Wear sling while up and about during the day Follow-up with orthopedics May apply ice, 10 minutes on as needed for discomfort Please return earlier should you have new or worsening complaints Referrals: Nithin Arreola MD [ [facility]FF [facility]YSICIAN] - Alfredo Montoya [Primary Care Provider] - Discharge Data Discharge Date/Time-TO BE ENTERED AT DEPARTURE: 01/10/23 13:10 Medical Decision Making 77-year-old gentleman presents after a mechanical fall, alert and oriented, complaining headache, and left shoulder pain CT head and cervical spine does not show evidence of acute abnormality, will await stroke like symptoms Left shoulder with evidence of Neurovascularly intact about Placed in a sling and referred to orthopedics Ambulatory trial performed, ambulatory with steady gait Has assistance from his and daughter at home Feels comfortable with discharge home, neurologically intact declines any Medical Records Medical records reviewed: Yes I reviewed the patient's medical records. Lab Data Lab results reviewed: Yes I reviewed the patient's lab results. HPI General Date/Time Provider Initiated Documentation: 01/10/23 10:00. HPI Narrative: This 77-year-old male presents with reports of fall and lowering himself to the toilet. He states that he lost his balance landed on the floor, hit his head and neck. Also had a shoulder injury.. Denies any LOC. Denies history of coagulopathy. At his baseline today, denies increased weakness. Denies seizure-like activity, does have a history of seizures and CVA approximately year prior to arrival, has left-sided weakness from this event, denies increased today. Related Data Home Medications Medication Instructions Recorded Confirmed atorvastatin 80 mg tablet 80 mg PO DAILY 01/05/21 06/20/22 cholecalciferol (vitamin D3) 25 25 mcg PO DAILY 01/05/21 06/20/22 mcg (1,000 unit) tablet (Vitamin D3) folic acid 1 mg tablet 1 mg PO DAILY 01/05/21 06/20/22 lacosamide 100 mg tablet 200 mg PO BID 01/05/21 06/20/22 potassium chloride 10 mEq 10 meq PO DAILY 01/05/21 06/20/22 capsule,extended release tamsulosin 0.4 mg capsule 0.4 mg PO BID 01/05/21 06/20/22 lactobacillus combo #5 150 mg (2 1 mg PO DAILY 12/12/21 06/20/22 billion cell) tablet,delayed release melatonin 3 mg tablet 3 mg PO HS 12/12/21 06/20/22 mirtazapine 7.5 mg tablet 7.5 mg PO HS 12/12/21 06/20/22 prazosin 1 mg capsule 1 mg PO HS 12/12/21 06/20/22 Allergies Allergy/AdvReac Type Severity Reaction Status Date / Time Iodinated Contrast Media Allergy Unverified 06/20/22 14:58 General Stated Complaint: Fall/Non TraumaCriteria ALONZO: 3 PFSH All Active Problems (Updated 01/10/23 @ 12:31 by MARISOL Hull) Fracture of shoulder (Acute) Head injury (Acute) Breakthrough seizure (Acute) Medical History (Updated 01/10/23 @ 12:31 by MARISOL Hull) CVA (cerebral vascular accident) Hypertension Lymphoma Prostate cancer Seizure in setting of fever and uti Surgical History (Updated 06/13/22 @ 20:26 by Ingrid Perez DO) History of craniotomy for brain bleed Family History Father Personal history of malignant neoplasm prostate cancer Social History Smoking/Tobacco Use Status: Current every day Tobacco Type: cigarettes Smoking risk assessment performed?: Yes Alcohol Intake: former Drug use: Never Substance use type: does not use Do you feel safe at home: Yes Do you feel safe in your relationship?: Yes Exam Const General: cooperative, comfortable and no acute distress Orientation: alert and oriented x3 [facility] Head images: 1. 1 inch hematoma noted, no crepitus, no hemotympanum Mouth: oral mucosae normal Throat: uvula midline Eyes Pupils: PERRL Neck Other: no midline tenderness Resp Effort & Inspection: normal respiratory effort Auscultation: clear to auscultation bilaterally Cardio Rate: regular rate Rhythm: regular rhythm GI Inspection: normal to inspection Other: non-tender abdominal exam, no visible signs of trauma Back/Spine/Pelvis Back: no CVA tenderness Neuro General: patient alert and patient oriented x3 Cranial Nerves: CN's II-XI intact bilaterally Cognition: normal cognition Speech: speech normal Extrem Other: tenderness and swelling noted to left shoulder, no tenderness to left elbow neurovascularly intact Course Vital Signs Vital signs: Vital Signs Temperature 36.7 C 01/10/23 09:49 Pulse 60 01/10/23 09:49 Respiratory Rate 18 01/10/23 09:49 Blood Pressure 141/69 H 01/10/23 09:49 Pulse Oximetry 92 01/10/23 09:49 Temperature 36.7 C 01/10/23 09:49 Temperature Source Skin 01/10/23 09:49 Pulse 65 01/10/23 12:10 Respiratory Rate 18 01/10/23 12:10 Respiratory Effort Normal 01/10/23 11:35 Blood Pressure 118/65 01/10/23 12:10 Pulse Oximetry 94 01/10/23 12:10 Oxygen Delivery Method Room Air 01/10/23 12:10 Oxygen Flow Rate 0 01/10/23 12:10 Pain Level 5 01/10/23 11:35
== END 2023-01-10 13:10 | disposition home or self-care (01) ==
PROVIDERS: Emergency Provider Physician Assistant; PCP Internal Medicine
DX: S09.90XA Unspecified injury of head, initial encounter (principal); W18.12XA Fall from or off toilet with subsequent striking against object, initial encounter; S42.92XA Fracture of left shoulder girdle, part unspecified, initial encounter for closed fracture
CPT/HCPCS: 99284; 70450; 71045; 72125; 73030; 73200

== ENCOUNTER 2023-01-23 12:06 | Emergency (ER) | payer MEDICARE, SELFPAY ==
[2023-01-23] VITALS (18 sets, daily range): BP systolic 115–155; BP diastolic 55–77; PULSE 43–70; RESP 7–25; TEMP 36.5; O2SAT 90–98
--- NOTE | 2023-01-23 12:00 | RT.EKG_ITS ---
APPROVED REPORT Exam: Resting ECG Reason for Exam: Post Seizure Patient Location: E HR:48 bpm ECG Measurements Heart Rate 48 AXIS AZ 199 P 49 QRSd 155 QRS 59 QT 463 T 39 QTc 412 Conclusion Sinus bradycardia...rate< 60 Right bundle branch block...QRSd>120, terminal axis(90,270) Sinus bradycardia rate of 48 with right bundle branch block pattern. AZ and QTc within normal limits . No ST segment abnormalities. Appears similar to prior with the exception of new sinus bradycardia . Prior dated last year.
--- NOTE | 2023-01-23 12:15 | DI.CT_ITS ---
Exam(s) CT HEAD WO EXAM: CT HEAD WO CLINICAL HISTORY: Breakthrough seizure. TECHNIQUE: Imaging Protocol: Axial computed tomography images with coronal and sagittal reformatted images were created and reviewed COMPARISON: CT CT HEAD CERVICAL SPINE WO from 01/10/2023 FINDINGS: Ventricles and Extra axial spaces: Normal in size and morphology for the patient's age. Hemorrhage: None. Cerebral parenchyma: No acute territorial infarct. There are areas of decreased attenuation in the w segun matter consistent with small vessel ischemic disease. There is again seen an old infarct involv ing the right frontal lobe, right insula and right basal ganglia. This is consistent with an old rig ht MCA distribution infarct. Midline shift: None. Brainstem/Cerebellum: Normal. Calvarium: Normal. Visualized Paranasal sinuses/Mastoids: There is mild mucosal thickening in the maxillary sinuses bila terally with thickening of the davis of the maxillary sinuses bilaterally suggesting chronic sinus di sease. The remaining visualized paranasal sinuses and mastoid air cells are clear. Soft Tissues: Unremarkable. IMPRESSION: No acute intracranial process. RADIATION DOSE DELIVERED: 806.64mGy.cm Total DLP DATA REPOSITORY: All CT scans at this facility are submitted to the National Radiology Data Registry (NRDR) Dose Index Registry (DIR) with the [employer] (ACR). RADIATION OPTIMIZATION: All CT scans at this facility use at least one of these dose optimization te chniques: automated exposure control; mA and/or kV adjustment per patient size (includes targeted exa ms where dose is matched to clinical indication); or iterative reconstruction.
--- NOTE | 2023-01-23 12:35 | W.ED.GENAD ---
Discharge Plan Disposition Patient Disposition: Home Discharge Details Clinical Impression: Breakthrough seizure, Acute UTI Primary Care Provider: Alfredo Montoya ED Provider: Damian Owens Home Meds and New Rx's Prescriptions: Continued prazosin 1 mg Capsule 1 mg PO HS melatonin 3 mg Tablet 3 mg PO HS mirtazapine 7.5 mg Tablet 7.5 mg PO HS lactobacillus combo #5 150 mg (2 billion cell) Tablet,Delayed Release (Dr/Ec) 1 mg PO DAILY bacillus coagulans-inulin 1 billion-250 cell-mg Capsule PO midazolam 5 mg/spray (0.1 mL) [place],Non-Aerosol 1 spray INTRANASAL ONCE Rx Instructions: as a single dose; may repeat dose in other nostril after 10 minutes if inadequate response atorvastatin 80 mg Tablet 80 mg PO DAILY potassium chloride 10 mEq Capsule, Extended Release 10 meq PO DAILY tamsulosin 0.4 mg Capsule 0.4 mg PO BID folic acid 1 mg Tablet 1 mg PO DAILY cholecalciferol (vitamin D3) [Vitamin D3] 25 mcg (1,000 unit) Tablet 25 mcg PO DAILY lacosamide 100 mg Tablet 200 mg PO BID Discharge Instructions Instructions: Recurrent Seizures in Adults (ED) Additional Instructions: You were seen in the emergency department following your seizure. Please continue taking your seizure medication as previously directed. Please return to the emergency department if you develop any falls. Please continue taking your antibiotics. Your blood work shows no sign of infection. Please follow-up next week with your primary care provider. Discharge Data Discharge Date/Time-TO BE ENTERED AT DEPARTURE: 01/23/23 15:27 Medical Decision Making This is a 77-year-old male with remote history of seizures and remote CVA now in the emergency department after arrived via EMS in the setting of a breakthrough seizure concerning for undertreated seizure versus arrhythmia versus electrolyte abnormality. He is neurologically intact now but given signs of right-sided head trauma will obtain a CT head. He is no longer having any tonic-clonic activity so I am not concerned for status epilepticus so I do not feel that the patient requires an EEG. No preceding fevers nor any nuchal rigidity at the moment to suggest meningitis so I do not feel the patient requires an LP. He is moving all 4 extremities spontaneously and has no acute neurological deficits so I am not concerned for CVA. Given prior seizure approximately 1 week ago we will consider initiating patient on low-dose of levetiracetam to supplement his home lacosamide. He has had prior urinary tract infections in the past so we will order a urinalysis. Given breakthrough seizure we will treat with 1 g of levetiracetam. 12:55 PM CBC with very mild normocytic anemia. No thrombocytopenia. No leukocytosis. 1:26 PM Negative troponin. Basic metabolic panel with no CHUCK no anion gap. Patient's reports that he has been on outpatient ciprofloxacin in setting of UTI. He was previously on levetiracetam but reportedly had a subtherapeutic level and so was switched to lacosamide. He follows with a neurologist in [place]. Given that he has a UTI it is certainly possible that his UTI lowered his seizure threshold. No hypoglycemia to suggest side effect from fluoroquinolone. Similarly QTc w/in nml limits so less likely torsades. Will encourage close neurological follow-up in [place]. I have asked health community representative Dawn to have patient seen by his neurologist in the next week for follow-up. Given UA consistent with ongoing UTI and reported sub-therapeutic effect of levetiracetam will defer managment of antiseizure medications. 3 PM Patient's daughter reports that patient's has had difficulty taking care of the patient recently. Reportedly there is a private long term aide who stays with the patient for part of 1 day a week so the patient's can go shopping. I have asked health unit Dawn to have the patient seen within the week by his PCP. Patient may be a candidate for enhanced home health services given the significant burden his need for near total care presents to his . Will defer this determination to the patient's PCP who knows him best. Patient was able to ambulate in the emergency department with minimal assistance. Chronic conditions affecting the care of the patient: Seizure disorder prior CVA prior UTI History obtained from an outside historian: Paramedics and patient's daughter External record review: [facility] [place], [place] EMR Diagnostic interpretations performed by me Per my independent interpretation EKG shows: Sinus bradycardia rate of 48 with right bundle branch block pattern. SC and QTc within normal limits. No ST segment abnormalities. Appears similar to prior with the exception of new sinus bradycardia. Prior dated last year. Medications: 1 g levetiracetam Social determinants of health affecting disposition: [] Management discussed with: [] Treatment/interventions considered: [] Response to therapies provided: [] HPI General Date/Time Provider Initiated Documentation: 01/23/23 12:13. HPI Narrative: This is a 77-year-old male with history of remote CVA and prior seizures on outpatient lacosamide now in the emergency department following a reported seizure at home for which his initiated treatment with intranasal midazolam. No preceding chest pain or shortness of breath. Seizure lasted less than 5 minutes. Patient was mildly hypoxic and postictal with paramedics. He remotely struck his head several weeks ago. He does not drink alcohol. He does not feel that he bit his tongue or lost control of his bowels or bladder. He was feeling lightheaded prior to his seizure. He denies dysuria and frequency. He is on outpatient ciprofloxacin for urinary tract infection. Related Data Home Medications Medication Instructions Recorded Confirmed atorvastatin 80 mg tablet 80 mg PO DAILY 01/05/21 01/23/23 cholecalciferol (vitamin D3) 25 25 mcg PO DAILY 01/05/21 01/23/23 mcg (1,000 unit) tablet (Vitamin D3) folic acid 1 mg tablet 1 mg PO DAILY 01/05/21 06/20/22 lacosamide 100 mg tablet 200 mg PO BID 01/05/21 01/23/23 potassium chloride 10 mEq 10 meq PO DAILY 01/05/21 06/20/22 capsule,extended release tamsulosin 0.4 mg capsule 0.4 mg PO BID 01/05/21 01/23/23 lactobacillus combo #5 150 mg (2 1 mg PO DAILY 12/12/21 06/20/22 billion cell) tablet,delayed release melatonin 3 mg tablet 3 mg PO HS 12/12/21 01/23/23 mirtazapine 7.5 mg tablet 7.5 mg PO HS 12/12/21 01/23/23 prazosin 1 mg capsule 1 mg PO HS 12/12/21 06/20/22 bacillus coagulans-inulin 1 cap PO 01/23/23 billion cell-250 mg capsule midazolam 5 mg/spray (0.1 mL) 1 spray intranasal ONCE 01/23/23 01/23/23 nasal spray Allergies Allergy/AdvReac Type Severity Reaction Status Date / Time Iodinated Contrast Media Allergy Unverified 06/20/22 14:58 General Stated Complaint: Seizure ALONZO: 2 PFSH All Active Problems (Updated 01/24/23 @ 14:18 by Damian Owens MD) Fracture of shoulder (Acute) Head injury (Acute) Acute UTI (Acute) Breakthrough seizure (Acute) Medical History (Updated 01/24/23 @ 14:18 by Damian Owens MD) CVA (cerebral vascular accident) Hypertension Lymphoma Prostate cancer Seizure in setting of fever and uti Surgical History (Updated 06/13/22 @ 20:26 by Ingrid Perez DO) History of craniotomy for brain bleed Family History Father Personal history of malignant neoplasm prostate cancer Social History Smoking/Tobacco Use Status: Current every day Tobacco Type: cigarettes Smoking risk assessment performed?: Yes Alcohol Intake: former Drug use: Never Substance use type: does not use Do you feel safe at home: Yes Do you feel safe in your relationship?: Yes Exam Narrative Exam Narrative: General: Chronically ill-appearing in no acute distress speaking in complete sentences. Head: Right-sided scalp ecchymosis, atraumatic. Eye: Pupils equal, round reactive to light. Extraocular eye movements intact. No conjunctival injection. No scleral icterus. Ear, nose, mouth, throat: Grossly normal inspection. Normal voice, handling secretions normally. Neck: Trachea midline. Cardiovascular: Well-perfused distal extremities. Respiratory: Nonlabored respiration. Gastrointestinal: Nondistended abdomen. Musculoskeletal: No edema. Moving all 4 extremities spontaneously. Skin: Normal for age and race, grossly normal temperature and turgor. No acute rash. Neurologic: Alert and appropriate, no apparent acute deficits. Alert and oriented to person place and time. Moving all 4 extremities spontaneously. GCS 15. Psychiatric: Mood and manner are appropriate. Grooming and personal hygiene are appropriate. Course Vital Signs Vital signs: Vital Signs Temperature 36.5 C 01/23/23 12:05 Pulse 54 L 01/23/23 12:05 Respiratory Rate 18 01/23/23 12:05 Blood Pressure 124/56 L 01/23/23 12:05 Pulse Oximetry 97 01/23/23 12:05 Temperature 36.5 C 01/23/23 12:05 Temperature Source Temporal Artery Scan 01/23/23 12:05 Pulse 54 L 01/23/23 12:05 Respiratory Rate 18 01/23/23 12:05 Respiratory Effort Normal 01/23/23 12:16 Respiratory Depth Normal 01/23/23 12:16 Respiratory Pattern Normal 01/23/23 12:16 Blood Pressure 124/56 L 01/23/23 12:05 Pulse Oximetry 97 01/23/23 12:05 Oxygen Delivery Method Room Air 01/23/23 12:05 Oxygen Flow Rate 0 01/23/23 12:05
[2023-01-23 12:37] LABS: Abs Immature Grans 0.02 10^3/uL (0.0-0.06); Absolute Basophil Count 0.04 10^3/uL (0.0-0.2); Absolute Eosinophil Count 0.46 10^3/uL (0.0-0.7); Absolute Lymphocyte Count 0.99 10^3/uL (1.2-3.4); Absolute Monocyte Count 0.51 10^3/uL (0.1-0.8); Absolute Neutrophil Count 5.85 10^3/uL (1.2-6.7); Basophils % 0.5; Eosinophils % 5.8; HCT 40.9 % (40.0-50.0); HGB 13.3 g/dL (13.5-17.5); Immature Grans % 0.3; Lymphocytes % 12.6; MCHC 32.5 % (32.0-36.0); MCV 92 fL (80-95); Monocytes % 6.5; Neutrophils % 74.3; Platelet Count 183 10^3/uL (130-400); RBC 4.43 10^6/uL (4.36-5.78); RDW 14.3 % (11.8-14.1); RDW-SD 48.5 fL; WBC 7.87 10^3/uL (4.4-10.8)
[2023-01-23 12:54] LABS: Anion Gap 4.9 mmol/L (3-11); BUN 11 mg/dL (7-18); CO2 31.1 mmol/L (21.0-32.0); Chloride 103 mmol/L (98-107); Estimated GFR 77.52 (mL/min/1.73m2); Glucose 105 mg/dL (74-106); Potassium 3.7 mmol/L (3.5-5.1); Sodium 139 mmol/L (136-145); Troponin I < 50 ng/L (<or=60)
[2023-01-23] MEDS: Normal Saline 500 ML IV (13:01)
[2023-01-23] MEDS: levETIRAcetam 1,000 MG in Normal Saline 100 ML 400 MG IVPB (13:18)
--- NOTE | 2023-01-23 13:32 | NUR.NOTE ---
Nursing Note: Sent referral to [facility] for follow up with his Nuerologist in [place] within a week.
--- NOTE | 2023-01-23 13:57 | DI.VRAD_ITS ---
PROCEDURE INFORMATION: Exam: CT Head Without Contrast Exam date and time: 01/23/2023 1:41 PM Age: 77 years old Clinical indication: Other: Breakthrough seizure TECHNIQUE: Imaging protocol: Computed tomography of the head without contrast. Radiation optimization: All CT scans at this facility use at least one of these dose optimization techniques: automated exposure control; mA and/or kV adjustment per patient size (includes targeted exams where dose is matched to clinical indication); or iterative reconstruction. COMPARISON: CT HEAD CERVICAL SPINE WO 01/10/2023 10:34 AM FINDINGS: Brain: There is an old infarct in the right frontal lobe, right insula and right lateral basal ganglia, unchanged. The mahoney-white matter differentiation is within normal limits. There is no effect or midline shift. There are moderate nonspecific patchy foci of periventricular, subcortical white matter hypodensities which might represent chronic micro vascular ischemic changes. The basal cisterns are prominent due to [id number] parenchymal volume loss, unchanged. There is no extra-axial fluid collection. Cerebral ventricles: No ventriculomegaly. Paranasal sinuses: Mild mucosal thickening in the bilateral maxillary sinuses. There is sclerosis and thickening of the maxillary sinus davis which might be sequela of chronic sinus disease. Mastoid air cells: Visualized mastoid air cells are well aerated. Bones/joints: No acute fracture. Soft tissues: Unremarkable. IMPRESSION: 1. No acute intracranial abnormalities. No mass effect or midline shift or acute intracranial hemorrhage. 2. Stable old right MCA infarct. Dictated and Authenticated by: Caleb Pedraza MD. Ordering:CHRISSY Salgado MD
[2023-01-23 15:04] LABS: Bilirubin Negative (Negative); Blood Large (Negative); Clarity Cloudy (Clear); Glucose Negative (Negative); Ketones Negative (Negative); Leukocyte Esterase Large (Negative); Nitrite Negative (Negative); Specific Gravity 1.025 (1.005-1.025); pH 6.5 (5-8)
[2023-01-23 15:12] LABS: WBC >50 HPF (0-5)
[2023-01-23 15:13] LABS: Bacteria Many HPF (Negative); C & S Indicated? Yes; Casts Negative LPF (Negative); Crystals Negative HPF (Negative); Epithelial Cells Rare HPF (Negative); Mucus Moderate (Negative); RBC >50 HPF (0-2)
--- NOTE | 2023-01-24 15:15 | NUR.NOTE ---
Nursing Note: Referral given to Care Management for breakthrough seizure, follow up ED visit, consider Home Health services/ this week. Pt. PCP is Alfredo Montoya, who I believe is from the [place].
== END 2023-01-23 15:27 | disposition home or self-care (01) ==
PROVIDERS: Emergency Provider Emergency Medicine; PCP Internal Medicine
DX: G40.919 Epilepsy, unspecified, intractable, without status epilepticus (principal); N39.0 Urinary tract infection, site not specified; R42 Dizziness and giddiness
CPT/HCPCS: 80048; 93005; 96361; 96365; 99284; 70450; 81003; 81015; 84484; 85025; 87086; 93010; J1953

== ENCOUNTER 2023-01-27 14:07 | Outpatient (CLI) | payer MEDICARE, SELFPAY ==
--- NOTE | 2023-01-27 13:15 | DI.RAD_ITS ---
Exam(s) XR SHOULDER LT COMPLETE 2+V EXAM: XR SHOULDER LT COMPLETE 2+V CLINICAL HISTORY: shoulder fx f/u. TECHNIQUE: 2D digital imaging was performed of the left shoulder. Two images were obtained. AP and Y views were obtained. COMPARISON: CR,XR XR SHOULDER LT COMPLETE 2+V from 01/10/2023 FINDINGS: BONES: There is no change in alignment of the fracture through the surgical neck of the left humerus. No bony destructive lesion is seen. JOINTS: No dislocation present. The glenohumeral and acromioclavicular joints are unremarkable. SOFT TISSUE: Normal. IMPRESSION: Stable nondisplaced proximal left humeral neck fracture. DATA REPOSITORY: RADIATION DOSE DELIVERED:
== END 2023-01-27 14:08 | disposition home or self-care (01) ==
LOC: DIORS 14:07
PROVIDERS: PCP Internal Medicine; Referring Provider Internal Medicine; Visit Provider Student in an Organized Health Care Education/Training Program
DX: S42.202A Unspecified fracture of upper end of left humerus, initial encounter for closed fracture; W18.12XA Fall from or off toilet with subsequent striking against object, initial encounter
CPT/HCPCS: 99203; 99213; 73030

== ENCOUNTER 2023-02-01 03:10 | Emergency (ER) | payer MEDICARE, SELFPAY ==
--- NOTE | 2023-02-01 01:45 | DI.CT_ITS ---
Exam(s) CT HEAD CERVICAL SPINE WO EXAM: CT HEAD CERVICAL SPINE WO CLINICAL HISTORY: fall from bed, hit head. TECHNIQUE: Imaging Protocol: Axial computed tomography images with coronal and sagittal reformatted images were created and reviewed COMPARISON: CT CT HEAD WO from 01/23/2023 FINDINGS: BRAIN: There are no skull fractures. There is symmetrical periosteal thickening in both maxillary sinuses a nd there is a tiny fluid level in the right maxillary sinus. Other paranasal sinuses appear unremark able as do the mastoid air cells. There is no evidence of acute intracranial hemorrhage, new mass effect, or shift of midline structure s. There are no extra-axial fluid collections. The ventricles are not enlarged or shifted and there is no blood within the ventricular system nor within the basal cisterns. Prominent area of encephalomalacia again noted on the right side, unchanged, and consistent with prio r infarct in the territory of the right middle cerebral artery. Again noted is heavy calcification i n the supraclinoid aspects both internal carotid arteries as well as in the vertebral arteries at the skull base. Amount of atrophy is unchanged. CERVICAL SPINE: There is no evidence of acute fracture nor significant listhesis. No significant prevertebral soft t issue swelling. There is chronic disc space narrowing at C6-7 level as well as C5-6. There is mild multilevel facet arthropathy bilaterally. There is no significant facet joint malalignment. No significant osseous lesions evident. Heavy calcification is incidentally noted in the supraspinous ligament, this is corticated and nonacu te appearing IMPRESSION: No acute intracranial findings on this noninfused CT scan of the brain.Evidence of prior right middle cerebral artery infarct again noted, unchanged. No evidence of cervical spine fracture, malalignment, nor acute compromise of the cervical spinal can al. First read by [facility]. RADIATION DOSE DELIVERED: 1,064.51mGy.cm Total DLP DATA REPOSITORY: All CT scans at this facility are submitted to the National Radiology Data Registry (NRDR) Dose Index Registry (DIR) with the [employer] (ACR). RADIATION OPTIMIZATION: All CT scans at this facility use at least one of these dose optimization te chniques: automated exposure control; mA and/or kV adjustment per patient size (includes targeted exa ms where dose is matched to clinical indication); or iterative reconstruction.
[2023-02-01 01:49] VITALS: BP 112/65; PULSE 56; RESP 22; TEMP 36.4; O2SAT 95
--- NOTE | 2023-02-01 02:00 | DI.RAD_ITS ---
Exam(s) XR SHOULDER LT COMPLETE 2+V EXAM: XR SHOULDER LT COMPLETE 2+V CLINICAL HISTORY: fall, known fx. TECHNIQUE: 2D digital imaging was performed. COMPARISON: CR XR SHOULDER LT COMPLETE 2+V from 01/27/2023 FINDINGS: Four views No evidence of obvious acute new fracture or dislocation or abnormal soft tissue calcifications. Sub acromial space is not diminished. However, on this supine AP view there is very subtle cortical irregularity of the lateral aspect of t he greater tuberosity humeral head. This may indicate subtle fracture at this level or possible calc ific rotator cuff tendinitis at the foot pad insertion site. There is mild upward subluxation of the humeral head in the osseous glenoid fossa. This is most evid ent on the supine view. IMPRESSION: Findings as above. However, in reviewing the January 27, 2023 images there is evidence of these findings previously, including a subtle nondisplaced fracture at the humeral head-neck level. Indeed the fra cture line at this level is less evident on the present images. The fracture of the greater tuberosi ty is unchanged and nondisplaced. Final report called by myself to ER provider 02/01/2023 at 9:25. DATA REPOSITORY: RADIATION DOSE DELIVERED:
[2023-02-01 02:10] LABS: Bilirubin Negative (Negative); Blood Large (Negative); Clarity Sl Cloudy (Clear); Glucose Negative (Negative); Ketones Negative (Negative); Leukocyte Esterase Large (Negative); Nitrite Negative (Negative); Urobilinogen 0.2 mg/dL (Up to 0.2)
[2023-02-01 02:18] LABS: Bacteria Moderate HPF (Negative); C & S Indicated? Yes; Crystals Rare Calcium Oxalate HPF (Negative); Epithelial Cells Rare HPF (Negative); Mucus Negative (Negative); Other Cells Few Transitional (Negative); WBC >50 HPF (0-5)
--- NOTE | 2023-02-01 02:30 | W.ED.GENAD ---
Discharge Plan Disposition Patient Disposition: Home Discharge Details Clinical Impression: Fall, Acute UTI Primary Care Provider: Alfredo Montoya ED Provider: Tariq Ventura Home Meds and New Rx's Prescriptions: New cephalexin 500 mg capsule 500 mg PO QID 7 Days Qty: 28 0RF No Action prazosin 1 mg Capsule 1 mg PO HS melatonin 3 mg Tablet 3 mg PO HS lactobacillus combo #5 150 mg (2 billion cell) Tablet,Delayed Release (Dr/Ec) 1 mg PO DAILY bacillus coagulans-inulin 1 billion-250 cell-mg Capsule PO midazolam 5 mg/spray (0.1 mL) [place],Non-Aerosol 1 spray INTRANASAL ONCE Rx Instructions: as a single dose; may repeat dose in other nostril after 10 minutes if inadequate response atorvastatin 80 mg Tablet 80 mg PO DAILY tamsulosin 0.4 mg Capsule 0.4 mg PO BID cholecalciferol (vitamin D3) [Vitamin D3] 25 mcg (1,000 unit) Tablet 25 mcg PO DAILY lacosamide 100 mg Tablet 200 mg PO BID Discharge Instructions Instructions: Urinary Tract Infection in Men (ED), Fall Prevention (ED) Additional Instructions: At this time you demonstrate what appears to be either a continued or a new urinary tract infection. We will start you on a new antibiotic called Keflex. Please take this as directed. The prescription for the complete course has been sent to your pharmacy. Please have your [facility] recheck[facility] 10 days at your scheduled appointment. If your urinary tract infection persists, you may need further imaging of the bladder to look for bladder stone or other complicating agent. If you notice any worsening of your symptoms, or any new symptoms such as vomiting, diarrhea, fever, chills, shortness of breath, chest pain, numbness, weakness, or fainting , please return immediately to the emergency department for reevaluation. Please follow up with your primary care provider as soon as possible for reassessment and reevaluation. As always, it was a pleasure participating in your medical care today. Referrals: Alfredo Montoya [Primary Care Provider] - Medical Decision Making This is a 77-year-old male with a past medical history of high cholesterol, previous CVA, seizures, recent proximal humerus fracture within the past 2 to 3 weeks, recent urinary tract infection who presents today for evaluation after a fall. Patient was brought in by EMS. Patient states that he had a dream that I was eating cake. 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 states she did not hear a thump or a loud bang, but did notice that he was on the floor opposite of his normal direction from where his bed is. He had some difficulty getting up at that time. He had no complaints of pain. He was brought into the ER by EMS for further assessment. Patient denies any recent seizure. He is and his states that he has been taking his medications as directed. No other complaints at this time. No other modifying factors. He denies any headache, new arm or shoulder pain, chest pain, abdominal pain, or extremity pain. EXAM demonstrates a well-appearing male. No signs of new or acute trauma. Old bruises present over his right brow, however he states this is from his previous fall. Old craniotomy scars present. No evidence of new trauma to the arm or legs. Due to the nature of his symptoms we will get a CT scan of the head and neck and a repeat x-ray of his shoulder to make sure there is no new fracture. We will get a repeat urinalysis, monitor closely and reassess. Patient states he is otherwise asymptomatic. is at bedside. 3:[address] scan of the head and neck, as well as x-ray of the left shoulder demonstrates no acute process per radiology. Urinalysis has returned positive for evidence of UTI. Patient was on Cipro before, and did complete this dose. He clearly still has evidence of an infection though. This may be a component, versus chronic contamination. We will transition the patient to a new prescription for Keflex, 500 4 times daily. I did discuss with the who is at bedside the importance of close follow-up at her scheduled appointment in 10 days at the [facility] for the patient, and I recommended the importance of recheck of his urine to evaluate for continued infection. If there is a persistent infection I did discuss with family that there may need to be further diagnostic evaluation of potential further imaging to look for chronic bladder stone or other abnormality. Otherwise at this time the patient is neurovascularly intact, no focal neurologic deficits. He feels well still, and still has no complaints of pain and insists that this was because of a dream. Patient will be discharged home. Discussed red flags for which to return. I have extensively reviewed the treatment plan and discharge instructions with the patient and their family. I have addressed all patient concerns at this time. The patient and family was made aware of what symptoms to monitor for that would warrant a return to the emergency department. Discussed the plan with the patient and family, they demonstrate verbal understanding and agreement with our assessment and plan at this time. The documentation in this chart was dictated using [employer] dictation software. Please excuse any dictation errors. FINDINGS: Normal alignment. No acute fracture or dislocation. IMPRESSION: No fracture. Thank you for allowing us to participate in the care of your patient. Dictated and Authenticated by: David Moseley MD 02/01/2023 3:25 AM Eastern Time ([place] & [place]) FINDINGS: Brain: Chronic right frontotemporal infarct. Periventricular white matter lucencies compatible with chronic microvascular ischemic changes. No intracranial hemorrhage. No mass effect or midline shift. Cerebral ventricles: The ventricles and sulci are prominent compatible with age-related involutional changes. Paranasal sinuses: Visualized sinuses are unremarkable. No fluid levels. Mastoid air cells: Visualized mastoid air cells are well aerated. Bones/joints: Unremarkable. No acute fracture. Soft tissues: Right frontal scalp swelling. IMPRESSION: No acute intracranial findings. FINDINGS: Bones/joints: Normal alignment. No acute fracture or subluxation. Lungs: Lung apices are normal. Soft tissues: Unremarkable. IMPRESSION: No fracture. Thank you for allowing us to participate in the care of your patient. Dictated and Authenticated by: David Moseley MD 02/01/2023 3:18 AM Eastern Time ([place] & [place]) HPI General Date/Time Provider Initiated Documentation: 02/01/23 03:21. HPI Narrative: This is a 77-year-old male with a past medical history of high cholesterol, previous CVA, seizures, recent proximal humerus fracture within the past 2 to 3 weeks, recent urinary tract infection who presents today for evaluation after a fall. Patient was brought in by EMS. Patient states that he had a dream that I was eating cake. 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 states she did not hear a thump or a loud bang, but did notice that he was on the floor opposite of his normal direction from where his bed is. He had some difficulty getting up at that time. He had no complaints of pain. He was brought into the ER by EMS for further assessment. Patient denies any recent seizure. He is and his states that he has been taking his medications as directed. No other complaints at this time. No other modifying factors. He denies any headache, new arm or shoulder pain, chest pain, abdominal pain, or extremity pain. Related Data Home Medications Medication Instructions Recorded Confirmed atorvastatin 80 mg tablet 80 mg PO DAILY 01/05/21 01/27/23 cholecalciferol (vitamin D3) 25 25 mcg PO DAILY 01/05/21 01/27/23 mcg (1,000 unit) tablet (Vitamin D3) lacosamide 100 mg tablet 200 mg PO BID 01/05/21 01/27/23 tamsulosin 0.4 mg capsule 0.4 mg PO BID 01/05/21 01/27/23 lactobacillus combo #5 150 mg (2 1 mg PO DAILY 12/12/21 01/27/23 billion cell) tablet,delayed release melatonin 3 mg tablet 3 mg PO HS 12/12/21 01/27/23 prazosin 1 mg capsule 1 mg PO HS 12/12/21 01/27/23 bacillus coagulans-inulin 1 cap PO 01/23/23 01/27/23 billion cell-250 mg capsule midazolam 5 mg/spray (0.1 mL) 1 spray intranasal ONCE 01/23/23 01/27/23 nasal spray cephalexin 500 mg capsule 500 mg PO QID 7 days #28 caps 02/01/23 Previous Rx's Medication Instructions Recorded cephalexin 500 mg capsule 500 mg PO QID 7 days #28 caps 02/01/23 Allergies Allergy/AdvReac Type Severity Reaction Status Date / Time Iodinated Contrast Media Allergy Unverified 01/27/23 13:17 General Stated Complaint: Fall/Non TraumaCriteria ALONZO: 3 Review of Systems All systems reviewed & are unremarkable except as noted in HPI and below PFSH All Active Problems (Updated 02/01/23 @ 03:48 by Tariq Ventura DO) Fall (Acute) Acute UTI (Acute) Closed fracture of left proximal humerus (Acute 01/10/23) Fracture of shoulder (Acute) Head injury (Acute) Acute UTI (Acute) Breakthrough seizure (Acute) Medical History (Updated 02/01/23 @ 03:48 by Tariq Ventura DO) CVA (cerebral vascular accident) Hypertension Lymphoma Prostate cancer Seizure in setting of fever and uti Surgical History (Updated 06/13/22 @ 20:26 by Ingrid Perez DO) History of craniotomy for brain bleed Family History Father Personal history of malignant neoplasm prostate cancer Social History Smoking/Tobacco Use Status: Current every day Tobacco Type: cigarettes Smoking risk assessment performed?: Yes Alcohol Intake: former Drug use: Never Substance use type: does not use Current gender identity: male Do you feel safe at home: Yes Do you feel safe in your relationship?: Yes Exam Narrative Exam Narrative: 1.Const: Well-nourished, Well-developed, appearing stated age 2.Eyes: PERRL, no conjunctival injection, and symmetrical lids. 3.ENT: Atraumatic external nose and ears. Moist MM. Neck: Symmetric, trachea midline, No thyromegaly. No evidence of cranial trauma. 4.CVS: +S1/S2, No murmurs or gallops. Peripheral pulses 2+ and equal in all extremities. Brisk capillary refill in all extremities. 5.RESP: Unlabored respiratory effort. Clear to auscultation bilaterally. No wheezes rales or rhonchi 6.GI: Soft, Nontender/Nondistended, No hepatosplenomegaly. No guarding or rebound. 7.MSK: Normocephalic/Atraumatic, Extremities w/o deformity or ttp No cyanosis or clubbing, Normal movement of all extremities. Patient does have slight limitation of range of motion for the left upper extremity secondary to the previous fracture. Sling is currently on the patient. No significant tenderness over the proximal humerus. No midline cervical thoracic or lumbar spine tenderness. No tenderness of the hips or lower extremities. 8.Skin: Warm, Dry. No rashes or lesions. 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 Sensation grossly intact, no focal neurologic deficits. 10.Psych: (AAO) x3. Appropriate mood and affect Course Vital Signs Vital signs: Vital Signs Temperature 36.4 C 02/01/23 01:49 Pulse 56 L 02/01/23 01:49 Respiratory Rate 22 02/01/23 01:49 Blood Pressure 112/65 02/01/23 01:49 Pulse Oximetry 95 02/01/23 01:49 Temperature 36.4 C 02/01/23 01:49 Temperature Source Temporal Artery Scan 02/01/23 01:49 Pulse 56 L 02/01/23 01:49 Respiratory Rate 22 02/01/23 01:49 Respiratory Effort Normal 02/01/23 01:55 Blood Pressure 112/65 02/01/23 01:49 Blood Pressure Position Sitting 02/01/23 01:49 Pulse Oximetry 95 02/01/23 01:49 Oxygen Delivery Method Room Air 02/01/23 01:49 Oxygen Flow Rate 0 02/01/23 01:49 Lab/Test Results Lab/Test Results: 02/01/23 02:04 Urine - Reflex from Ua Urine Culture - Pending Laboratory Tests Range/Units 02/01/23 02:04 Urine Color (Yellow) Yellow Urine Clarity (Clear) Sl Cloudy Urine pH (5-8) 6.0 Ur Specific [place] (1.005-1.025) 1.010 Urine Protein (Negative) mg/dL 100 H Urine Ketones (Negative) mg/dL Negative Urine Blood (Negative) Large H Urine Nitrite (Negative) Negative Urine Bilirubin (Negative) Negative Urine Urobilinogen (Up to 0.2) mg/dL 0.2 Ur Leukocyte Esterase (Negative) Large H Urine RBC (0-2) HPF 10-20 H Urine WBC (0-5) HPF >50 H Ur Epithelial Cells (Negative) HPF Rare Urine Crystals (Negative) HPF Rare Calcium Oxalate Urine Bacteria (Negative) HPF Moderate Urine Mucus (Negative) Negative Urine Other (Negative) Few Transitional Ur Culture Indicated? Yes Urine Glucose (Negative) mg/dL Negative
--- NOTE | 2023-02-01 03:19 | DI.VRAD_ITS ---
PROCEDURE INFORMATION: Exam: CT Head Without Contrast Exam date and time: 02/01/2023 2:21 AM Age: 77 years old Clinical indication: Injury or trauma; Blunt trauma (contusions or hematomas); Consciousness not specified; Injury date: 02/01/23; Injury details: Fall from bed, hit head TECHNIQUE: Imaging protocol: Computed tomography of the head without contrast. Radiation optimization: All CT scans at this facility use at least one of these dose optimization techniques: automated exposure control; mA and/or kV adjustment per patient size (includes targeted exams where dose is matched to clinical indication); or iterative reconstruction. COMPARISON: CT HEAD WO 01/23/2023 1:41 PM FINDINGS: Brain: Chronic right frontotemporal infarct. Periventricular white matter lucencies compatible with chronic microvascular ischemic changes. No intracranial hemorrhage. No mass effect or midline shift. Cerebral ventricles: The ventricles and sulci are prominent compatible with age-related involutional changes. Paranasal sinuses: Visualized sinuses are unremarkable. No fluid levels. Mastoid air cells: Visualized mastoid air cells are well aerated. Bones/joints: Unremarkable. No acute fracture. Soft tissues: Right frontal scalp swelling. IMPRESSION: No acute intracranial findings. PROCEDURE INFORMATION: Exam: CT Cervical Spine Without Contrast Exam date and time: 02/01/2023 2:21 AM Age: 77 years old Clinical indication: Injury or trauma; Blunt trauma (contusions or hematomas); Consciousness not specified; Injury date: 02/01/23; Injury details: Fall from bed, hit head TECHNIQUE: Imaging protocol: Computed tomography of the cervical spine without contrast. Radiation optimization: All CT scans at this facility use at least one of these dose optimization techniques: automated exposure control; mA and/or kV adjustment per patient size (includes targeted exams where dose is matched to clinical indication); or iterative reconstruction. COMPARISON: CT HEAD CERVICAL SPINE WO 01/10/2023 10:34 AM FINDINGS: Bones/joints: Normal alignment. No acute fracture or subluxation. Lungs: Lung apices are normal. Soft tissues: Unremarkable. IMPRESSION: No fracture. Dictated and Authenticated by: David Moseley MD. Ordering:ESTRELLA Potter MD
--- NOTE | 2023-02-01 03:25 | DI.VRAD_ITS ---
PROCEDURE INFORMATION: Exam: XR Left Shoulder Exam date and time: 02/01/2023 2:32 AM Age: 77 years old Clinical indication: Injury or trauma; Blunt trauma (contusions or hematomas); Shoulder; Left; Injury date: 02/01/23; Injury details: Fall, known FX TECHNIQUE: Imaging protocol: Radiologic exam of the left shoulder. Views: 2 or more views. COMPARISON: CR XR SHOULDER LT COMPLETE 2+V 01/27/2023 1:38 PM FINDINGS: Normal alignment. No acute fracture or dislocation. IMPRESSION: No fracture. Dictated and Authenticated by: David Moseley MD. Ordering:ESTRELLA Potter MD
== END 2023-02-01 04:10 | disposition home or self-care (01) ==
PROVIDERS: Emergency Provider Student in an Organized Health Care Education/Training Program; PCP Internal Medicine
DX: N39.0 Urinary tract infection, site not specified (principal); W19.XXXD Unspecified fall, subsequent encounter; S42.202D Unspecified fracture of upper end of left humerus, subsequent encounter for fracture with routine healing
CPT/HCPCS: 99283; 70450; 72125; 73030; 81003; 81015; 87086; 99284

== ENCOUNTER 2023-02-17 15:08 | Outpatient (CLI) | payer MEDICARE, SELFPAY ==
--- NOTE | 2023-02-17 15:00 | DI.RAD_ITS ---
Exam(s) XR SHOULDER LT COMPLETE 2+V EXAM: XR SHOULDER LT COMPLETE 2+V CLINICAL HISTORY: left proximal humerus fx f/u. TECHNIQUE: 2D digital imaging was performed of the left shoulder. Two images were obtained. AP and Y views were obtained. COMPARISON: CR XR SHOULDER LT COMPLETE 2+V from 01/27/2023 CR,XR XR SHOULDER LT COMPLETE 2+V from 02/01/2023 FINDINGS: BONES: There is no change in alignment of the proximal left humeral fracture. Callus formation has d eveloped about the fracture consistent with some interval healing. The bones are osteopenic. No new fractures identified. No bony destructive lesion is seen. JOINTS: No dislocation present. SOFT TISSUE: Normal. IMPRESSION: Stable alignment of the proximal left humeral fracture. DATA REPOSITORY: RADIATION DOSE DELIVERED:
== END 2023-02-17 15:09 | disposition home or self-care (01) ==
LOC: DIORS 15:09
PROVIDERS: PCP Internal Medicine; Referring Provider Internal Medicine; Visit Provider Student in an Organized Health Care Education/Training Program
DX: S42.202D Unspecified fracture of upper end of left humerus, subsequent encounter for fracture with routine healing; S42.92XD Fracture of left shoulder girdle, part unspecified, subsequent encounter for fracture with routine healing; X58.XXXD Exposure to other specified factors, subsequent encounter
CPT/HCPCS: 99213; 73030

== ENCOUNTER 2023-05-19 03:03 | Outpatient (CLI) | payer MEDICARE, SELFPAY ==
[2023-05-20 17:47] LABS: PSA, Ultrasensitive 0.17 ng/mL (<= 6.5)
== END 2023-05-19 03:04 | disposition home or self-care (01) ==
LOC: LBO 03:03
PROVIDERS: PCP Internal Medicine; Visit Provider Nurse Practitioner Family
DX: C61 Malignant neoplasm of prostate (principal)
CPT/HCPCS: 36415; 84153

== ENCOUNTER 2023-08-22 14:26 | Emergency (ER) | payer MEDICARE, SELFPAY ==
[2023-08-22] VITALS (62 sets, daily range): BP systolic 100–124; BP diastolic 57–72; PULSE 57–78; RESP 8–34; TEMP 36.1–37.1; O2SAT 92–98
--- NOTE | 2023-08-22 16:30 | DI.RAD_ITS ---
Exam(s) XR PORTABLE CHEST AP EXAM: XR PORTABLE CHEST AP CLINICAL HISTORY: fever TECHNIQUE: 2D digital imaging was performed. COMPARISON: CR,XR XR CHEST 1V IN DI DEPT from 01/10/2023 FINDINGS: LUNGS: Emphysematous and fibrotic changes, otherwise clear. No pleural abnormality seen. HEART: Normal size. AORTA: Normal diameter. BONES: Unremarkable for age. Soft tissues: Unremarkable. IMPRESSION: No acute findings. DATA REPOSITORY: RADIATION DOSE DELIVERED:
--- NOTE | 2023-08-22 16:42 | ED.GENADUL_ITS ---
Discharge Plan Disposition Patient Disposition: Home Condition: Stable Discharge Details Clinical Impression: COVID, Fever Primary Care Provider: Alfredo Montoya ED Provider: Alfredo Moore Home Meds and New Rx's Prescriptions: New Paxlovid 300 mg (150 mg x 2)-100 mg tablets,dose pack See Rx Instructions .ROUTE .COMPLEX Qty: 30 0RF Rx Instructions: take TWO 150 mg tablets of nirmatrelvir with ONE 100 mg tablet of ritonavir twice daily for 5 days Continued prazosin 1 mg Capsule 1 mg PO HS melatonin 3 mg Tablet 3 mg PO HS lactobacillus combo #5 150 mg (2 billion cell) Tablet,Delayed Release (Dr/Ec) 1 mg PO DAILY Bacillus coagulans-inulin 1 billion-250 cell-mg Capsule PO midazolam 5 mg/spray (0.1 mL) [place],Non-Aerosol 1 spray INTRANASAL ONCE Rx Instructions: as a single dose; may repeat dose in other nostril after 10 minutes if inadequate response cholecalciferol (vitamin D3) [Vitamin D3] 25 mcg (1,000 unit) Tablet 25 mcg PO DAILY lacosamide 100 mg Tablet 200 mg PO BID Held atorvastatin 80 mg Tablet 80 mg PO DAILY Hold Instructions: Resume on 08/28/23. tamsulosin 0.4 mg Capsule 0.4 mg PO BID Hold Instructions: Resume on 08/28/23. Discharge Instructions Instructions: COVID-19 (Coronavirus Disease 2019) (ED) Additional Instructions: [facility] is open 10am-3pm tomorrow so you can get your prescription hold your atorvastatin and tasmulosin until the day after you finished the paxlovid follow up with your primary care provider within 1-2 weeks if not feeling improved if you feel more ill, have difficulty breathing or severe pain return to the emergency department Medical Decision Making 77 yo male with hx of hld and had a stent placed earlier this month for a kidney stone [place] [facility] who comes in after he states his felt he has had an intermittent fever since Jennifer. He is caox4 and answers questions appropriately but doesn't believe he has actually had a fever and when asked why his has told him he thinks he has a fever he shrugs his shoulders and doesn't give a clear answer. He is afebrile here and has stable vitals, appears well. He denies cough, chest pain, abdomen pain, n/v. He has clear lungs, soft abdomen. Unclear etiology for his alleged fever his reported but will check cbc, cmp, procalcitonin and cxr and reassess. xray unremarkable, ua with rbc's and wbc's which could be from his stent, will treat with a one time dose of fosfomycin. He is covid positive. No oxygen requirement, still caox4, stable for d/c, will start on paxlovid and advised to f/u with pcp, return precautions given Differential Diagnosis Differential Diagnosis: covid, pneumonia, uti Medical Records Medical records reviewed: Yes I reviewed the patient's medical records. Lab Data Lab results reviewed: Yes I reviewed the patient's lab results. HPI General Mode of arrival: ambulatory . Date/Time Provider Initiated Documentation: 08/22/23 16:16 . Limitations to Documentation: no limitations . Information obtained by: patient . History of Present Illness 77 year old M presents to the emergency department with the chief complaint of ?fever, flora cribed as mild, Patient started experiencing this day(s) (5) and it has been intermittent. No relieving factors improve symptom(s), No exacerbating factors reported . Patient notes no other symptoms.; denies chest pain and fever/chills. Patient did receive the following treatments prior to arrival, none Related Data Home Medications Medication Instructions Recorded Confirmed atorvastatin 80 mg tablet 80 mg PO DAILY 01/05/21 02/17/23 cholecalciferol (vitamin D3) 25 25 mcg PO DAILY 01/05/21 02/17/23 mcg (1,000 unit) tablet (Vitamin D3) lacosamide 100 mg tablet 200 mg PO BID 01/05/21 02/17/23 tamsulosin 0.4 mg capsule 0.4 mg PO BID 01/05/21 02/17/23 lactobacillus combo #5 150 mg (2 1 mg PO DAILY 12/12/21 02/17/23 billion cell) tablet,delayed release melatonin 3 mg tablet 3 mg PO HS 12/12/21 02/17/23 prazosin 1 mg capsule 1 mg PO HS 12/12/21 02/17/23 Bacillus coagulans-inulin 1 cap PO 01/23/23 02/17/23 billion cell-250 mg capsule midazolam 5 mg/spray (0.1 mL) 1 spray intranasal ONCE 01/23/23 02/17/23 nasal spray nirmatrelvir 300 mg (150 mg See Rx Instructions PO .COMPLEX 08/22/23 x2)-ritonavir 100 mg tablet,dose #30 dose pk pack (Paxlovid) Previous Rx's Medication Instructions Recorded nirmatrelvir 300 mg (150 mg See Rx Instructions PO .COMPLEX 08/22/23 x2)-ritonavir 100 mg tablet,dose #30 dose pk pack (Paxlovid) Allergies Allergy/AdvReac Type Severity Reaction Status Date / Time Iodinated Contrast Media Allergy Unverified 08/22/23 15:01 General Stated Complaint: GenMedical ALONZO: 3 Review of Systems All systems reviewed & are unremarkable except as noted in HPI and below Constitutional Constitutional: Denies chills, Reports fever(s) and Denies weakness Cardiovascular Cardiovascular: Denies chest pain and Denies dyspnea Respiratory Respiratory: Denies cough and Denies dyspnea Gastrointestinal Gastrointestinal: Denies abdominal pain, Denies nausea and Denies vomiting Musculoskeletal Musculoskeletal: Denies joint swelling Neurologic Neurologic: Denies weakness Endocrine Endocrine: Denies cold intolerance and Denies heat intolerance PFSH All Active Problems (Updated 08/22/23 @ 18:47 by Alfredo Moore MD) Fever (Acute) COVID (Acute) Closed fracture of left proximal humerus (Acute 01/10/23) Breakthrough seizure (Acute) Medical History (Updated 08/22/23 @ 18:47 by Alfredo Moore MD) Seizure in setting of fever and uti CVA (cerebral vascular accident) Lymphoma Prostate cancer Hypertension Surgical History (Updated 06/13/22 @ 20:26 by Ingrid Perez DO) History of craniotomy for brain bleed Family History Father Personal history of malignant neoplasm prostate cancer Social History Smoking/Tobacco Use Status: Current every day Tobacco Type: cigarettes Smoking risk assessment performed?: Yes Alcohol Intake: former Drug use: Never Substance use type: does not use Housing: house Current gender identity: male Do you feel safe at home: Yes Do you feel safe in your relationship?: Yes Exam Const General: no acute distress Orientation: alert HENMT Head: normal to inspection Ears: external ears normal General nose exam: external nose normal Mouth: moist mucous membranes Eyes General: appearance normal, both eyes and all related structures Neck Neck: normal visual inspection Resp Effort & Inspection: normal respiratory effort and able to speak in complete sentences Auscultation: clear to auscultation bilaterally Cardio Rate: regular rate Heart Sounds: no murmurs GI Palpation: soft and nontender Skin General skin exam: no rashes or lesions noted Neuro General: patient alert and patient oriented x3 Extrem General: normal to inspection Psych Mental Status: mental status grossly normal Course Vital Signs Vital signs: Vital Signs Temperature 37.1 C 08/22/23 14:59 Pulse 74 08/22/23 14:59 Respiratory Rate 18 08/22/23 14:59 Blood Pressure 100/57 L 08/22/23 14:59 Pulse Oximetry 95 08/22/23 14:59 Temperature 36.7 C 08/22/23 16:26 Temperature Source Oral 08/22/23 16:26 Pulse 64 08/22/23 16:26 Respiratory Rate 20 08/22/23 16:26 Respiratory Effort Normal, Non-Labored 08/22/23 16:26 Respiratory Depth Normal 08/22/23 16:26 Respiratory Pattern Normal 08/22/23 16:26 Blood Pressure 124/72 08/22/23 16:26 Blood Pressure Position Supine 08/22/23 16:26 Pulse Oximetry 96 08/22/23 16:26 Oxygen Delivery Method Room Air 08/22/23 16:26 Oxygen Flow Rate 0 08/22/23 14:59 Lab/Test Results Lab/Test Results: 08/22/23 16:28 Blood Blood Culture - Pending 08/22/23 16:28 Blood Blood Culture - Pending
[2023-08-22 17:00] LABS: Abs Immature Grans 0.02 10^3/uL (0.0-0.06); Absolute Basophil Count 0.02 10^3/uL (0.0-0.2); Absolute Eosinophil Count 0.01 10^3/uL (0.0-0.7); Absolute Lymphocyte Count 1.08 10^3/uL (1.2-3.4); Absolute Monocyte Count 0.63 10^3/uL (0.1-0.8); Absolute Neutrophil Count 6.34 10^3/uL (1.2-6.7); Basophils % 0.2; Eosinophils % 0.1; HGB 14.2 g/dL (13.5-17.5); Immature Grans % 0.2; Lymphocytes % 13.3; MCV 91 fL (80-95); MPV 9.6 fL (8.0-11.0); Monocytes % 7.8; Neutrophils % 78.4; Platelet Count 165 10^3/uL (130-400); RBC 4.73 10^6/uL (4.36-5.78); RDW 14.3 % (11.8-14.1); RDW-SD 48.4 fL
[2023-08-22 17:19] LABS: Influenza A PCR Negative (Negative); Influenza B PCR Negative (Negative); RSV PCR Negative (Negative)
[2023-08-22 17:25] LABS: ALT 14 U/L (16-63); AST 15 U/L (15-37); Albumin 3.3 g/dL (3.4-5.0); Alkaline Phosphatase 102 U/L (46-116); Anion Gap 7.7 mmol/L (3-11); BUN 13 mg/dL (7-18); Bilirubin, Total 0.4 mg/dL (0.2-1.0); CO2 29.3 mmol/L (21.0-32.0); Calcium 9.6 mg/dL (8.5-10.1); Chloride 103 mmol/L (98-107); Estimated GFR 77.52 (mL/min/1.73m2); Glucose 112 mg/dL (74-106); Potassium 3.7 mmol/L (3.5-5.1); Sodium 140 mmol/L (136-145); TSH (W/Ref FT4) 0.96 uIU/mL (0.36-3.74); Total Protein 7.2 g/dL (6.4-8.2)
[2023-08-22 17:27] LABS: COVID-19 PCR Positive (Negative); Source Nasopharynx
[2023-08-22 17:29] LABS: Procalcitonin < 0.1 ng/mL
--- NOTE | 2023-08-22 17:51 | DI.VRAD_ITS ---
PROCEDURE INFORMATION: Exam: XR Chest Exam date and time: 08/22/2023 5:07 PM Age: 77 years old Clinical indication: Other: Fever TECHNIQUE: Imaging protocol: Radiologic exam of the chest. Views: 1 view. Total images: 3 COMPARISON: CR XR CHEST 1V IN DI DEPT 01/10/2023 10:52 AM FINDINGS: Lungs: Lungs appear clear. No visible consolidation. No pulmonary masses. Pulmonary vascularity is normal. Pleural spaces: No pleural effusion or pneumothorax. Heart/Mediastinum: Heart size is normal. Vasculature: Aortic mural calcification. Bones/joints: No acute osseous abnormalities. IMPRESSION: No acute cardiopulmonary disease. Dictated and Authenticated by: Karla Simeon MD. Ordering:MOUNA Fuentes MD
[2023-08-22 18:25] LABS: Bilirubin Negative (Negative); Blood Large (Negative); Clarity Turbid (Clear); Glucose Negative (Negative); Ketones Negative (Negative); Leukocyte Esterase Small (Negative); Nitrite Negative (Negative); Urobilinogen 0.2 mg/dL (Up to 0.2); pH 6.5 (5-8)
[2023-08-22 18:30] LABS: Bacteria Few HPF (Negative); C & S Indicated? C&S Done As Ordered; Casts Negative LPF (Negative); Crystals Negative HPF (Negative); Epithelial Cells Few HPF (Negative); Mucus Negative (Negative); RBC >50 HPF (0-2); WBC >50 HPF (0-5)
[2023-08-22] MEDS: Fosfomycin Tromethamine 3 GM PACKET PO (18:55)
--- NOTE | 2023-08-23 11:37 | NUR.NOTE ---
Nursing Note: Patient's family unable to get prescription from [facility].
--- NOTE | 2023-08-24 09:45 | NUR.NOTE ---
Accessed chart to look up whether or not on antibiotic for culture result. Nursing Note:
--- NOTE | 2023-08-24 11:08 | ED.FU.B_ITS ---
Date of service: 08/24/23 Time of Service: 11:09 Follow Up Plan: Urine cultures came back mixed stefania, patient has history of bilateral ureteral stents, no urinary symptoms currently was able to speak with his ; patient was also given a one-time dose of fosfomycin in department at visit most recently. Family has had issues filling Paxlovid prescription due to decreased supply in the area, I was able to [facility] in [place]. Home care instructions and return precautions given to family.
--- NOTE | 2023-08-25 09:11 | NUR.NOTE ---
Accessed Pt chart to obtain the antibiotic given to Pt during his visit. This was for the specimen sheet.
--- NOTE | 2023-08-25 09:12 | W.ED.FU ---
Date of service: 08/25/23 Time of Service: 09:13 Follow Up Plan: This patient's urine culture finalized on my shift. He had gram-negative mixed stefania and Gram positive mixed stefania. No pathological species isolated. Patient was given fosfomycin. He was also found to have COVID. Will continue to monitor as an outpatient.
== END 2023-08-22 19:00 | disposition home or self-care (01) ==
PROVIDERS: Emergency Provider Emergency Medicine; PCP Internal Medicine
DX: U07.1 COVID-19 (principal); R50.9 Fever, unspecified; Z87.442 Personal history of urinary calculi; Z96.0 Presence of urogenital implants
CPT/HCPCS: 80053; 84145; 87040; 87637; 99283; 71045; 81003; 81015; 83735; 84443; 85025; 87086; J3490

== ENCOUNTER 2023-10-15 21:21 | Outpatient (REF) | payer MEDICARE, SELFPAY | END 2023-10-15 21:22 | disposition home or self-care (01) | LOC: LBN 21:21 | PROVIDERS: PCP Internal Medicine; Visit Provider Urology | DX: N20.0 Calculus of kidney (principal) | CPT/HCPCS: 87086 ==

== ENCOUNTER 2023-11-03 03:52 | Outpatient (CLI) | payer MEDICARE, SELFPAY ==
[2023-11-03 12:06] LABS: Abs Immature Grans 0.05 10^3/uL (0.0-0.06); Absolute Basophil Count 0.05 10^3/uL (0.0-0.2); Absolute Eosinophil Count 0.18 10^3/uL (0.0-0.7); Basophils % 0.4; Eosinophils % 1.5; HCT 40.9 % (40.0-50.0); HGB 13.2 g/dL (13.5-17.5); Immature Grans % 0.4; Lymphocytes % 9.4; MCH 30.3 pg (27.0-33.0); MCHC 32.3 % (32.0-36.0); MCV 94 fL (80-95); MPV 8.6 fL (8.0-11.0); Monocytes % 5.5; Neutrophils % 82.8; Platelet Count 242 10^3/uL (130-400); RBC 4.35 10^6/uL (4.36-5.78); RDW 14.6 % (11.8-14.1); RDW-SD 50.1 fL; WBC 12.08 10^3/uL (4.4-10.8)
[2023-11-03 12:07] LABS: Absolute Lymphocyte Count 1.14 10^3/uL (1.2-3.4); Absolute Monocyte Count 0.66 10^3/uL (0.1-0.8)
[2023-11-03 12:40] LABS: ALT 16 U/L (16-63); AST 12 U/L (15-37); Albumin 3.1 g/dL (3.4-5.0); Alkaline Phosphatase 120 U/L (46-116); Anion Gap 5.7 mmol/L (3-11); BUN 12 mg/dL (7-18); Bilirubin, Total 0.3 mg/dL (0.2-1.0); CO2 32.3 mmol/L (21.0-32.0); Calcium 9.3 mg/dL (8.5-10.1); Chloride 103 mmol/L (98-107); Estimated GFR 77.04 (mL/min/1.73m2); Glucose 157 mg/dL (74-106); LDH 117 U/L (85-227); Potassium 3.9 mmol/L (3.5-5.1); Sodium 141 mmol/L (136-145); Total Protein 6.9 g/dL (6.4-8.2)
[2023-11-04 20:03] LABS: PSA, Ultrasensitive 0.22 ng/mL (<= 6.5)
== END 2023-11-03 03:53 | disposition home or self-care (01) ==
PROVIDERS: PCP Internal Medicine; Visit Provider Internal Medicine Medical Oncology
DX: C82.98 Follicular lymphoma, unspecified, lymph nodes of multiple sites (principal); C61 Malignant neoplasm of prostate
CPT/HCPCS: 36415; 80053; 84153; 83615; 85025

== ENCOUNTER 2023-12-26 21:46 | Emergency (ER) | payer OTHER, SELFPAY ==
[2023-12-26] VITALS (11 sets, daily range): BP systolic 100–130; BP diastolic 59–64; PULSE 60–68; RESP 11–22; TEMP 36.8; O2SAT 97
--- NOTE | 2023-12-26 22:00 | DI.CT_ITS ---
Exam(s) CT HEAD WO EXAM: CT HEAD WO CLINICAL HISTORY: Dizziness, hx of CVA. TECHNIQUE: Imaging Protocol: Axial computed tomography images with coronal and sagittal reformatted images were created and reviewed COMPARISON: CT CT HEAD CERVICAL SPINE WO from 02/01/2023 FINDINGS: Ventricles and Extra axial spaces: Normal in size and morphology for the patient's age. Hemorrhage: None. Cerebral parenchyma: No evidence of acute infarct or mass. Large old right frontal infarct is uncha nged. Moderate white matter changes small vessel disease. Midline shift: None. Brainstem/Cerebellum: Normal. Calvarium: Normal. Visualized Paranasal sinuses:Minimal mucous retention in the right maxillary sinus. Mastoids: Clear. Soft Tissues: Unremarkable. ORBITS: Unremarkable. PITUITARY: Not enlarged. IMPRESSION: Old right frontal infarct. No acute intracranial process. RADIATION DOSE DELIVERED: 751.58mGy.cm Total DLP DATA REPOSITORY: All CT scans at this facility are submitted to the National Radiology Data Registry (NRDR) Dose Index Registry (DIR) with the [employer] (ACR). RADIATION OPTIMIZATION: All CT scans at this facility use at least one of these dose optimization te chniques: automated exposure control; mA and/or kV adjustment per patient size (includes targeted exa ms where dose is matched to clinical indication); or iterative reconstruction.
--- NOTE | 2023-12-26 22:04 | W.ED.GENAD ---
Discharge Plan Disposition Patient Disposition: Home Condition: Stable Discharge Details Clinical Impression: UTI (urinary tract infection), Mild dehydration Primary Care Provider: Elyse Gutierrez ED Provider: Fanta Durham Home Meds and New Rx's Prescriptions: New cephalexin 500 mg tablet 500 mg PO BID 7 Days Qty: 14 0RF Rx Instructions: Take one tablet twice daily x 7 days Continued prazosin 1 mg Capsule 1 mg PO HS melatonin 3 mg Tablet 3 mg PO HS lactobacillus combo #5 150 mg (2 billion cell) Tablet,Delayed Release (Dr/Ec) 1 mg PO DAILY Bacillus coagulans-inulin 1 billion-250 cell-mg Capsule PO midazolam 5 mg/spray (0.1 mL) [place],Non-Aerosol 1 spray INTRANASAL ONCE Rx Instructions: as a single dose; may repeat dose in other nostril after 10 minutes if inadequate response atorvastatin 80 mg Tablet 80 mg PO DAILY Hold Instructions: Resume on 08/28/23. tamsulosin 0.4 mg Capsule 0.4 mg PO BID Hold Instructions: Resume on 08/28/23. cholecalciferol (vitamin D3) [Vitamin D3] 25 mcg (1,000 unit) Tablet 25 mcg PO DAILY lacosamide 100 mg Tablet 200 mg PO BID Paxlovid 300 mg (150 mg x 2)-100 mg tablets,dose pack See Rx Instructions .ROUTE .COMPLEX Qty: 30 0RF Rx Instructions: take TWO 150 mg tablets of nirmatrelvir with ONE 100 mg tablet of ritonavir twice daily for 5 days Paxlovid 300 mg (150 mg x 2)-100 mg tablets,dose pack See Rx Instructions .ROUTE .COMPLEX Qty: 30 0RF Rx Instructions: take TWO 150 mg tablets of nirmatrelvir with ONE 100 mg tablet of ritonavir twice daily for 5 days Discharge Instructions Instructions: Dehydration (ED), Urinary Tract Infection in Men (ED) Additional Instructions: Mild low magnesium and potassium which was given to you tonight. No new changes on Head CT. There is a small UTI noted on urinalysis. Please take the antibiotic with yogurt or probiotic twice daily for the next 7 to 10 days. Follow up with primary care provider and/or [facility] in 3-5 days. Return to ED sooner if any worsening or concerns. Increase oral fluids. Referrals: [facility] [Outside] - 5 days Elyse Gutierrez [Primary Care Provider] - 3 days Discharge Data Discharge Date/Time-TO BE ENTERED AT DEPARTURE: 12/27/23 00:58 HPI General Mode of arrival: wheelchair. Date/Time Provider Initiated Documentation: 12/26/23 21:52. Limitations to Documentation: no limitations. Information obtained by: patient, RN notes reviewed and old records reviewed. HPI Narrative: 78 year old male presents to the ED with report of dizziness and decreased PO intake. Per patient he has been drinking water and tea ok, Hx of prostate cancer and recent stent removal for a kidney stone. He denies headache, he has no focal neuro deficits no leg drop, end user consultant equal bilateral, he does close his right eye which he reports has been ongoing since September which he doesn't realize he is doing that. He reports his noticed he was wobbly on his feet and wanted me checked out. Past medical history includes CVA, seizure lymphoma prostate cancer and hypertension, history of craniotomy. He does see urology at [facility]. Related Data Home Medications Medication Instructions Recorded Confirmed atorvastatin 80 mg tablet 80 mg PO DAILY 01/05/21 02/17/23 cholecalciferol (vitamin D3) 25 25 mcg PO DAILY 01/05/21 02/17/23 mcg (1,000 unit) tablet (Vitamin D3) lacosamide 100 mg tablet 200 mg PO BID 01/05/21 02/17/23 tamsulosin 0.4 mg capsule 0.4 mg PO BID 01/05/21 02/17/23 lactobacillus combo #5 150 mg (2 1 mg PO DAILY 12/12/21 02/17/23 billion cell) tablet,delayed release melatonin 3 mg tablet 3 mg PO HS 12/12/21 02/17/23 prazosin 1 mg capsule 1 mg PO HS 12/12/21 02/17/23 Bacillus coagulans-inulin 1 cap PO 01/23/23 02/17/23 billion cell-250 mg capsule midazolam 5 mg/spray (0.1 mL) 1 spray intranasal ONCE 01/23/23 02/17/23 nasal spray nirmatrelvir 300 mg (150 mg See Rx Instructions PO .COMPLEX 08/22/23 x2)-ritonavir 100 mg tablet,dose #30 dose pk pack (Paxlovid) nirmatrelvir 300 mg (150 mg See Rx Instructions PO .COMPLEX 08/24/23 x2)-ritonavir 100 mg tablet,dose #30 dose pk pack (Paxlovid) cephalexin 500 mg tablet 500 mg PO BID uti 7 days #14 tabs 12/27/23 Previous Rx's Medication Instructions Recorded nirmatrelvir 300 mg (150 mg See Rx Instructions PO .COMPLEX 08/22/23 x2)-ritonavir 100 mg tablet,dose #30 dose pk pack (Paxlovid) nirmatrelvir 300 mg (150 mg See Rx Instructions PO .COMPLEX 08/24/23 x2)-ritonavir 100 mg tablet,dose #30 dose pk pack (Paxlovid) cephalexin 500 mg tablet 500 mg PO BID uti 7 days #14 tabs 12/27/23 Allergies Allergy/AdvReac Type Severity Reaction Status Date / Time Iodinated Contrast Media Allergy Unverified 08/22/23 15:01 General Stated Complaint: Urinary ALONZO: 3 Review of Systems All systems reviewed & are unremarkable except as noted in HPI and below ENT Ears, Nose, Mouth, and Throat: Reports dizziness Musculoskeletal Musculoskeletal: Reports abnormal gait Neurologic Neurologic: Reports abnormal gait and Reports dizziness Exam Narrative Exam Narrative: Constitutional: Alert and oriented x3. Appears stated age. Very thin body habitus. Head: Normocephalic, no trauma. Eyes: Pupils PERRL, Red reflex noted, EOM's intact. Eyelids symmetrical without lesions, discharge, or swelling. ENT: Bilateral TM's WNL, External ear normal to inspection, no mastoid TTP, swelling, or erythema, Nasal turbinates WNL, no nasal discharge. Poor dentition, Posterior pharynx WNL, no exudate. Chest: RRR, Normal S1, S2, distal pulses intact. Resp: Lungs clear to auscultation bilaterally, no wheezes, rales, or rhonchi. Abdomen: Soft, non-distended, Normoactive bowel sounds all 4 quads. Musculoskeletal: Unable to assess gait, per staff submarine warfare officer, c/o dizziness with transfer from Wheelchair to stretcher, Skin: No suspicious rashes or lesions. Capillary refill less than 2 sec. Neurologic: Cranial nerves II-XII intact. Alert and oriented x 3. Motor: No deficits noted. Sensory: Intact bilaterally all 4 extremities. No leg drop, intact dorsal flexion and pedal flexion, no facial droop. Hematologic/Lymphatic: No ecchymosis, no lymphadenopathy. Course Vital Signs Vital signs: Vital Signs Temperature 36.8 C 12/26/23 21:50 Pulse 67 12/26/23 21:50 Respiratory Rate 18 12/26/23 21:50 Blood Pressure 116/64 12/26/23 21:50 Pulse Oximetry 97 12/26/23 21:50 Temperature 36.8 C 12/26/23 21:50 Temperature Source Axillary 12/26/23 21:50 Pulse 67 12/26/23 21:50 Respiratory Rate 18 12/26/23 21:50 Blood Pressure 116/64 12/26/23 21:50 Blood Pressure Position Supine 12/26/23 21:50 Pulse Oximetry 97 12/26/23 21:50 Oxygen Delivery Method Room Air 12/26/23 21:50 Oxygen Flow Rate 0 12/26/23 21:50 Medical Decision Making 78 year old male presents to the ED with report of dizziness and decreased PO intake. Per patient he has been drinking water and tea ok, Hx of prostate cancer and recent stent removal for a kidney stone. He denies headache, he has no focal neuro deficits no leg drop, end user consultant equal bilateral, he does close his right eye which he reports has been ongoing since September which he doesn't realize he is doing that. He reports his noticed he was wobbly on his feet and wanted me checked out. Past medical history includes CVA, seizure lymphoma prostate cancer and hypertension, history of craniotomy. He does see urology at [facility]. General labs ordered, CT head due to dizziness and hx of CVA and unsteady gait, CT abd pelvis without contrast ordered due to recent stent removal and hx of prostate CA. [address] head within normal limits. Will give patient cephalexin 500 mg twice daily for the next 7 days for urinary tract infection although this may be chronic. Will have patient follow-up with the [facility] and [facility] for further evaluation. Discussed strict return instructions. This text was generated using [employer] system, please disregard any oddities of phrase or misspellings. This text was generated using [employer] dictation system, please disregard any oddities of phrase or misspellings. Medical Records Medical records reviewed: Yes I reviewed the patient's medical records. Medical records narrative: Patient had a cystoscopy and ureteroscopy at [facility] after a failed lithotripsy at [facility]. Imaging Data Radiologic Study: Imaging: CT Scan Radiologist's impression: TECHNIQUE: Imaging protocol: Computed tomography of the head without contrast. Radiation optimization: All CT scans at this facility use at least one of these dose optimization techniques: automated exposure control; mA and/or kV adjustment per patient size (includes targeted exams where dose is matched to clinical indication); or iterative reconstruction. COMPARISON: CT HEAD CERVICAL SPINE WO 02/01/2023 2:21 AM FINDINGS: Brain: Encephalomalacia in the right frontal lobe.There are moderate periventricular and subcortical lucencies consistent with chronic microvascular ischemic changes. Cerebral ventricles: No ventriculomegaly. Paranasal sinuses: Visualized sinuses are unremarkable. No fluid levels. Mastoid air cells: Visualized mastoid air cells are well aerated. Orbital cavities: Bilateral cataract surgery. Bones: Unremarkable. No acute fracture. Soft tissues: Unremarkable. IMPRESSION: No acute intracranial abnormality. Chronic microvascular ischemic changes. Radiologic Study #2: Imaging: CT Scan (Abd Pelvis) Radiologist's impression: IMPRESSION: Moderate bilateral hydronephrosis without visible obstructing stone. Mild urothelial thickening. Correlate with presence of infection. Also question of posterior bladder wall thickening. Small stones noted in dependent portion of bladder. Lab Data Lab results reviewed: Yes I reviewed the patient's lab results. Labs: 12/26/23 22:10 Urine - Reflex from Ua Urine Culture - Pending Laboratory Tests Range/Units 12/26/23 22:10 WBC (4.4-10.8) 10^3/uL 9.25 RBC (4.36-5.78) 10^6/uL 4.14 L Hgb (13.5-17.5) g/dL 12.6 L Hct (40.0-50.0) % 38.1 L MCV (80-95) fL 92 MCH (27.0-33.0) pg 30.4 MCHC (32.0-36.0) % 33.1 RDW (11.8-14.1) % 13.9 Plt Count (130-400) 10^3/uL 167 MPV (8.0-11.0) fL 8.9 Immature Gran % % 0.8 Neutrophils % % 74.1 Lymphocytes % % 13.4 Monocytes % % 6.9 Eosinophils % % 4.5 Basophils % % 0.3 Nucleated RBC % (0.0-0.3) % 0.0 Absolute Neutrophils (1.2-6.7) 10^3/uL 6.85 H Absolute Lymphocytes (1.2-3.4) 10^3/uL 1.24 Absolute Monocytes (0.1-0.8) 10^3/uL 0.64 Absolute Eosinophils (0.0-0.7) 10^3/uL 0.42 Absolute Basophils (0.0-0.2) 10^3/uL 0.03 Sodium (136-145) mmol/L 138 Potassium (3.5-5.1) mmol/L 3.3 L Chloride (98-107) mmol/L 101 Carbon Dioxide (21.0-32.0) mmol/L 30.5 Anion Gap (3-11) mmol/L 6.5 BUN (7-18) mg/dL 12 Creatinine (0.70-1.30) mg/dL 1.2 Est GFR (CKD-EPI 2020) (mL/min/1.73m2) 61.90 Glucose (74-106) mg/dL 141 H Calcium (8.5-10.1) mg/dL 8.7 Magnesium (1.8-2.4) mg/dL 1.7 L Total Bilirubin (0.2-1.0) mg/dL 0.4 AST (15-37) U/L 13 L ALT (16-63) U/L 17 Alkaline Phosphatase (46-116) U/L 89 Total Protein (6.4-8.2) g/dL 6.2 L Albumin (3.4-5.0) g/dL 2.7 L Urine Color (Yellow) Yellow Urine Clarity (Clear) Cloudy Urine pH (5-8) 6.0 Ur Specific [place] (1.005-1.025) 1.010 Urine Protein (Neg-Trace) mg/dL 30 H Urine Ketones (Negative) mg/dL Negative Urine Blood (Negative) Large H Urine Nitrite (Negative) Negative Urine Bilirubin (Negative) Negative Urine Urobilinogen (Up to 0.2) mg/dL 0.2 Ur Leukocyte Esterase (Negative) Small H Urine RBC (0-2) HPF 20-50 H Urine WBC (0-5) HPF >50 H Ur Epithelial Cells (Negative) HPF Rare Urine Crystals (Negative) HPF Rare Calcium Oxalate Urine Bacteria (Negative) HPF Moderate Urine Mucus (Negative) Negative Urine Other (Negative) Moderate Yeast Ur Culture Indicated? Yes Urine Glucose (Negative) mg/dL Negative Quality:SDOH Health Related Social Needs: No Data to Display PFSH All Active Problems (Updated 12/27/23 @ 00:10 by Fanta Durham NP) Mild dehydration (Acute) UTI (urinary tract infection) (Acute) COVID (Acute) Closed fracture of left proximal humerus (Acute 01/10/23) Breakthrough seizure (Acute) Medical History Seizure in setting of fever and uti CVA (cerebral vascular accident) Lymphoma Prostate cancer Hypertension Surgical History History of craniotomy for brain bleed Family History Father Personal history of malignant neoplasm prostate cancer Social History Smoking/Tobacco Use Status: Current every day Tobacco Type: cigarettes Smoking risk assessment performed?: Yes Alcohol Intake: former Drug use: Never Substance use type: does not use Housing: house Current gender identity: male Do you feel safe at home: Yes Do you feel safe in your relationship?: Yes
--- NOTE | 2023-12-26 22:15 | DI.CT_ITS ---
Exam(s) CT RENAL COLIC WO EXAM: CT RENAL COLIC WO CLINICAL HISTORY: Recent stent removal. TECHNIQUE: Imaging Protocol: Axial computed tomography images with coronal and sagittal reformatted images were created and reviewed. CONTRAST MATERIAL: Noncontrast COMPARISON: CT CT CHEST/ABD/PEL WO from 06/13/2022 FINDINGS: ABDOMEN: Lung Bases: Normal where visualized. Liver: Normal attenuation. No measurable mass. Gallbladder and biliary tract: No radiodense calculus or dilation. Pancreas: Normal density, no calcifications or inflammatory process. Spleen: Normal. Kidneys: Normal size, contour and axis. Moderate bilateral hydronephrosis. No ureteral calculi are identified. Bilateral renal calculi, left greater than right. Previous exam showed multiple stones within the renal pelves. Vascular calcifications also present. Cyst upper pole left kidney, unchang ed. No suspicious masses seen. Mild urothelial thickening bilaterally. Adrenal glands: No masses seen. Abdominal Aorta: Severe atherosclerotic changes. Abdominal aorta measures 4.6 cm in diameter. Sever e stenosis proximal right common iliac artery. Severe stenosis left external iliac artery. Soft tissues: Unremarkable. PELVIS: Bladder: Somewhat over distended. Posterior wall thickening. No focal mass visible. Air noted. Fe w tiny stones are noted layering posteriorly. Bowel: Large quantity of stool. No obstruction or bowel wall thickening. Reproductive: Metallic densities in prostate which appears mildly enlarged. Peritoneal cavity: No ascites, collection or mesenteric inflammatory response. Bones: Stable mild T12 compression fracture. IMPRESSION: Moderate bilateral hydronephrosis without visible obstructing stone. Mild urothelial thickening. Co rrelate with presence of infection. Also question of posterior bladder wall thickening. Small stone s noted in dependent portion of bladder. RADIATION DOSE DELIVERED: 670.08mGy.cm Total DLP DATA REPOSITORY: All CT scans at this facility are submitted to the National Radiology Data Registry (NRDR) Dose Index Registry (DIR) with the [employer] (A[employer]). RADIATION OPTIMIZATION: All CT scans at this facility use at least one of these dose optimization te chniques: automated exposure control; mA and/or kV adjustment per patient size (includes targeted exa ms where dose is matched to clinical indication); or iterative reconstruction.
[2023-12-26 22:26] LABS: Abs Immature Grans 0.07 10^3/uL (0.0-0.06); Absolute Basophil Count 0.03 10^3/uL (0.0-0.2); Absolute Eosinophil Count 0.42 10^3/uL (0.0-0.7); Absolute Lymphocyte Count 1.24 10^3/uL (1.2-3.4); Absolute Monocyte Count 0.64 10^3/uL (0.1-0.8); Absolute Neutrophil Count 6.85 10^3/uL (1.2-6.7); Basophils % 0.3 %; Eosinophils % 4.5 %; HCT 38.1 % (40.0-50.0); HGB 12.6 g/dL (13.5-17.5); Immature Grans % 0.8 %; Lymphocytes % 13.4 %; MCH 30.4 pg (27.0-33.0); MCHC 33.1 % (32.0-36.0); MCV 92 fL (80-95); MPV 8.9 fL (8.0-11.0); Monocytes % 6.9 %; Neutrophils % 74.1 %; Platelet Count 167 10^3/uL (130-400); RBC 4.14 10^6/uL (4.36-5.78); RDW 13.9 % (11.8-14.1); RDW-SD 47.3 fL; WBC 9.25 10^3/uL (4.4-10.8)
[2023-12-26 22:29] LABS: Bilirubin Negative (Negative); Blood Large (Negative); Clarity Cloudy (Clear); Glucose Negative (Negative); Ketones Negative (Negative); Leukocyte Esterase Small (Negative); Nitrite Negative (Negative); Urobilinogen 0.2 mg/dL (Up to 0.2)
[2023-12-26 22:37] LABS: Epithelial Cells Rare HPF (Negative); RBC 20-50 HPF (0-2); WBC >50 HPF (0-5)
[2023-12-26 22:38] LABS: Bacteria Moderate HPF (Negative); C & S Indicated? Yes; Crystals Rare Calcium Oxalate HPF (Negative); Mucus Negative (Negative); Other Cells Moderate Yeast (Negative)
[2023-12-26 22:40] LABS: ALT 17 U/L (16-63); AST 13 U/L (15-37); Albumin 2.7 g/dL (3.4-5.0); Alkaline Phosphatase 89 U/L (46-116); Anion Gap 6.5 mmol/L (3-11); BUN 12 mg/dL (7-18); Bilirubin, Total 0.4 mg/dL (0.2-1.0); CO2 30.5 mmol/L (21.0-32.0); CREATININE 1.2 mg/dL (0.70-1.30); Calcium 8.7 mg/dL (8.5-10.1); Chloride 101 mmol/L (98-107); Glucose 141 mg/dL (74-106); Magnesium 1.7 mg/dL (1.8-2.4); Potassium 3.3 mmol/L (3.5-5.1); Sodium 138 mmol/L (136-145); Total Protein 6.2 g/dL (6.4-8.2)
[2023-12-26] MEDS: Normal Saline 500 ML IV (23:12)
[2023-12-26] MEDS: Magnesium Oxide 400 MG TAB PO (23:12)
[2023-12-26] MEDS: Potassium Chloride 20 MEQ TABCR 40 MEQ PO (23:13)
--- NOTE | 2023-12-26 23:48 | DI.VRAD_ITS ---
PROCEDURE INFORMATION: Exam: CT Head Without Contrast Exam date and time: 12/26/2023 10:39 PM Age: 78 years old Clinical indication: Patient HX: Dizziness, HX of CVA TECHNIQUE: Imaging protocol: Computed tomography of the head without contrast. Radiation optimization: All CT scans at this facility use at least one of these dose optimization techniques: automated exposure control; mA and/or kV adjustment per patient size (includes targeted exams where dose is matched to clinical indication); or iterative reconstruction. COMPARISON: CT HEAD CERVICAL SPINE WO 02/01/2023 2:21 AM FINDINGS: Brain: Encephalomalacia in the right frontal lobe.There are moderate periventricular and subcortical lucencies consistent with chronic microvascular ischemic changes. Cerebral ventricles: No ventriculomegaly. Paranasal sinuses: Visualized sinuses are unremarkable. No fluid levels. Mastoid air cells: Visualized mastoid air cells are well aerated. Orbital cavities: Bilateral cataract surgery. Bones: Unremarkable. No acute fracture. Soft tissues: Unremarkable. IMPRESSION: No acute intracranial abnormality. Chronic microvascular ischemic changes. Dictated and Authenticated by: Pee Segal MD. Ordering:NENITA Jewell MD
[2023-12-27 00:20] VITALS: BP 130/98; PULSE 56; PULSE 57; RESP 19; TEMP 36.5; O2SAT 97
--- NOTE | 2023-12-27 00:29 | DI.VRAD_ITS ---
PROCEDURE INFORMATION: Exam: CT Abdomen And Pelvis Without Contrast Exam date and time: 12/26/2023 10:50 PM Age: 78 years old Clinical indication: Abdominal pain; Generalized; Patient HX: Recent stent removal TECHNIQUE: Imaging protocol: Computed tomography of the abdomen and pelvis without contrast. Radiation optimization: All CT scans at this facility use at least one of these dose optimization techniques: automated exposure control; mA and/or kV adjustment per patient size (includes targeted exams where dose is matched to clinical indication); or iterative reconstruction. COMPARISON: CT CHEST/ABD/PEL WO 06/13/2022 8:25 PM FINDINGS: Limitations: Extreme paucity of intra-abdominal fat with limited differentiation of normal anatomic structures. Lungs: Mild dependent atelectasis. Pleural spaces: Trace bilateral pleural fluid. Heart: Normal-sized heart. Liver: Unenhanced liver partially obscured by artifact but grossly unremarkable, as seen. Gallbladder and bile ducts: Gallbladder partially decompressed. Calcified gallstones at the fundus. No biliary dilatation. Pancreas: Pancreas almost completely obscured but grossly unremarkable, as seen. Spleen: Unenhanced spleen partially obscured by artifact but grossly unremarkable, as seen. Adrenal glands: Adrenal glands partially obscured but grossly unremarkable, as seen. Kidneys and ureters: Moderate right-sided hydronephrosis with diffuse ureterectasis. Mild prominence of the left renal pelvis with diffuse ureterectasis. No distally obstructing stones demonstrated. Mildly prominent visualization of the urothelium bilaterally, nonspecific. Acute urinary tract infection? Clinical correlation recommended. 3.2 cm x 2.3 cm complex cyst-like lesion with internal calcification arising from the left kidney, not well characterized by today's exam but with an unenhanced CT appearance most suggestive of a multiloculated cyst with central calcification, similar in size and appearance on the comparison unenhanced CT exam from June 13, 2022. Bilateral renal vascular calcification. 3 mm nonobstructing right renal calculus. Stomach and bowel: No oral contrast. Stomach partially decompressed. No small bowel dilatation to suggest obstruction. Colon partially obscured by close apposition of adjacent structures. Prominent retained fecal material in the cecum, ascending colon, and transverse colon. Downstream colon relatively well evacuated. No evidence of diverticulitis or colitis. Rectum well evacuated. Appendix: Appendix not identified, obscured if present. Correlation with surgical history recommended. If there is clinical concern for acute appendicitis and the patient still has an appendix, additional evaluation would be recommended. Intraperitoneal space: No gross ascites or free air. Vasculature: Aneurysmal dilatation of the infrarenal abdominal aorta with a maximum AP dimension of 4.6 cm. Extensive atherosclerotic calcification throughout the abdominal aorta and extending into the pelvic and proximal femoral arteries. Lymph nodes: Within the limits of the exam, no bulky adenopathy demonstrated. Urinary bladder: Urinary bladder moderately distended. Small calcified bladder stones layering in the dependent portion of the bladder with the largest measuring approximately 2-3 cm. Small foci of gas in the urinary bladder, nonspecific but commonly seen after recent catheterization. Correlation with procedure history recommended. Reproductive: Prostate gland and seminal vesicles partially obscured but not grossly enlarged. Surgical clips in the prostate gland suggesting prior prostate biopsies. Bones/joints: No acute fracture seen among the bones of the abdomen or pelvis. T12: Old superior endplate compression fracture deformity with mild loss of anterior vertebral height. Spinal degenerative change with discogenic degeneration, anterior osteophytes, and facet arthrosis at multiple levels. Soft tissues: No significant ventral or inguinal hernia. IMPRESSION: 1. Paucity of intra-abdominal fat with limited differentiation of normal anatomic structures. 2. Moderate right-sided hydronephrosis and diffuse ureterectasis, mild prominence of the left renal pelvis with diffuse ureterectasis, and mildly prominent visualization of the urothelium bilaterally. Although nonspecific, an acute urinary tract infection could produce this appearance. Clinical correlation is recommended. No obstructing stones are seen. 3. Multiple small nonobstructing bladder stones. 4. Prominent retained fecal material in the cecum, ascending colon, and transverse colon. Downstream colon relatively well evacuated. Right-sided constipation could have this appearance. Clinical correlation recommended. Otherwise, no acute bowel pathology demonstrated. 5. Additional findings, as above. Dictated and Authenticated by: Getachew Gary MD. Ordering:NENITA Jewell MD
[2023-12-27] MEDS: Cephalexin 500 MG CAP PO (00:53)
[2023-12-27] MEDS: Cephalexin 500 MG CAP, 2 CAPS/BTL PO (00:54)
== END 2023-12-27 00:58 | disposition home or self-care (01) ==
PROVIDERS: Emergency Provider Registered Nurse Emergency; PCP Internal Medicine
DX: N39.0 Urinary tract infection, site not specified (principal); E86.0 Dehydration; I10 Essential (primary) hypertension; Z85.46 Personal history of malignant neoplasm of prostate; Z86.73 Personal history of transient ischemic attack (TIA), and cerebral infarction without residual deficits; F17.210 Nicotine dependence, cigarettes, uncomplicated
CPT/HCPCS: 36415; 80053; 96360; 99284; 70450; 74176; 81003; 81015; 83735; 85025; 87086

== ENCOUNTER 2024-02-25 12:19 | Inpatient (IN) | payer OTHER, SELFPAY ==
[2024-02-25 12:23] VITALS: BP 116/65; PULSE 80; RESP 18; TEMP 36.2; O2SAT 96
[2024-02-25] MEDS: Lactated Ringers 1,000 ML 1000 ML IV (12:55)
[2024-02-25 12:57] LABS: Abs Immature Grans 0.05 10^3/uL (0.0-0.06); Absolute Basophil Count 0.02 10^3/uL (0.0-0.2); Absolute Eosinophil Count 0.09 10^3/uL (0.0-0.7); Absolute Lymphocyte Count 0.71 10^3/uL (1.2-3.4); Absolute Monocyte Count 0.65 10^3/uL (0.1-0.8); Absolute Neutrophil Count 7.41 10^3/uL (1.2-6.7); Basophils % 0.2 %; HCT 38.4 % (40.0-50.0); Immature Grans % 0.6 %; MCH 30.6 pg (27.0-33.0); MCHC 33.9 % (32.0-36.0); MCV 90 fL (80-95); MPV 9.3 fL (8.0-11.0); Monocytes % 7.3 %; Neutrophils % 82.9 %; Platelet Count 142 10^3/uL (130-400); RBC 4.25 10^6/uL (4.36-5.78); RDW 15.1 % (11.8-14.1); WBC 8.93 10^3/uL (4.4-10.8)
[2024-02-25 13:21] LABS: INR 1.1 (0.9-1.1); PTT Activated 27.2 sec (23.6-32.8); Prothrombin Time 11.1 sec (9.1-11.1)
--- NOTE | 2024-02-25 13:28 | W.ED.GENAD ---
Discharge Plan Disposition Patient Disposition: Admit to [facility] Condition: Good Discharge Details Chief Complaint: Fall/Non TraumaCriteria Clinical Impression: Closed left hip fracture Primary Care Provider: Elyse Gutierrez ED Provider: Tariq Ventura Home Meds and New Rx's Prescriptions: No Action melatonin 3 mg Tablet 3 mg PO HS lactobacillus combo #5 150 mg (2 billion cell) Tablet,Delayed Release (Dr/Ec) 1 mg PO DAILY Bacillus coagulans-inulin 1 billion-250 cell-mg Capsule 1 cap PO DAILY midazolam 5 mg/spray (0.1 mL) Holiday,Non-Aerosol 1 spray INTRANASAL ONCE Rx Instructions: as a single dose; may repeat dose in other nostril after 10 minutes if inadequate response potassium chloride [Klor-Con M10] 10 mEq tablet,ER particles/crystals 10 meq PO DAILY atorvastatin 80 mg Tablet 80 mg PO DAILY Hold Instructions: Resume on 08/28/23. tamsulosin 0.4 mg Capsule 0.4 mg PO BID Hold Instructions: Resume on 08/28/23. cholecalciferol (vitamin D3) [Vitamin D3] 25 mcg (1,000 unit) Tablet 25 mcg PO .qod lacosamide 100 mg Tablet 200 mg PO BID HPI General Date/Time Provider Initiated Documentation: 02/25/24 12:29. HPI Narrative: 78-year-old male with a past medical history of high cholesterol, previous strokes, seizures, previous humeral fracture, previous urinary tract infections which results to significant weakness, previous prostate cancer and stenting for kidney stone in the past, presents today for evaluation of weakness and fall onto his left hip. Patient states that he has been weak for the past 12 to 18 hours, he fell last night onto his left hip which developed some pain. He did not hit his head. He states that it was a controlled fall and he did not hit his head or anything else. He denies any other complaints at this time. He denies fever or chills. He denies vomiting or diarrhea. No numbness or tingling. is at bedside and states that he has not been drinking much fluids recently. Related Data Home Medications Medication Instructions Recorded Confirmed atorvastatin 80 mg tablet 80 mg PO DAILY 01/05/21 02/25/24 cholecalciferol (vitamin D3) 25 25 mcg PO .qod 01/05/21 02/25/24 mcg (1,000 unit) tablet (Vitamin D3) lacosamide 100 mg tablet 200 mg PO BID 01/05/21 02/25/24 tamsulosin 0.4 mg capsule 0.4 mg PO BID 01/05/21 02/25/24 lactobacillus combo #5 150 mg (2 1 mg PO DAILY 12/12/21 02/25/24 billion cell) tablet,delayed release melatonin 3 mg tablet 3 mg PO HS 12/12/21 02/25/24 Bacillus coagulans-inulin 1 1 cap PO DAILY 01/23/23 02/25/24 billion cell-250 mg capsule midazolam 5 mg/spray (0.1 mL) 1 spray intranasal ONCE 01/23/23 02/25/24 nasal spray potassium chloride 10 mEq 10 meq PO DAILY 02/25/24 02/25/24 tablet,extended release(part/cryst) (Klor-Con M) Allergies Allergy/AdvReac Type Severity Reaction Status Date / Time Iodinated Contrast Media Allergy Skin Rash Verified 02/25/24 12:33 General Stated Complaint: Fall/Non TraumaCriteria ALONZO: 3 Review of Systems All systems reviewed & are unremarkable except as noted in HPI and below Exam Narrative Exam Narrative: 1.Const: Well-nourished, Well-developed, appearing stated age 2.Eyes: PERRL, no conjunctival injection, and symmetrical lids. 3.ENT: Atraumatic external nose and ears. dry MM. Neck: Symmetric, trachea midline, No thyromegaly. There is no evidence of raccoon eyes, valentin sign, CSF rhinorrhea, mastoid tenderness, cranial crepitus, hemotympanum, exophthalmos, or hyphema. Patient demonstrates intact dentition with no signs of tooth avulsion or fracture, no signs of jaw deformity, no evidence of a LeFort's fracture, with an intact palate, nose and orbital region. There is no evidence of a nasal septal hematoma. No proptosis. Jaw closes symmetrically. Airway is clear. 4.CVS: +S1/S2, No murmurs or gallops. Peripheral pulses 2+ and equal in all extremities. Brisk capillary refill in all extremities. 5.RESP: Unlabored respiratory effort. Clear to auscultation bilaterally. No wheezes rales or rhonchi 6.GI: Soft, Nontender/Nondistended, No hepatosplenomegaly. No guarding or rebound. 7.MSK: Normocephalic, Extremities w/o deformity however the patient does have mild tenderness over the left hip. Mild pain with logrolling of the left hip. Patient is unable to flex or extend the left hip on his own. 8.Skin: Warm, Dry. No rashes or lesions. 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 Sensation grossly intact, no focal neurologic deficits. 10.Psych: (AAO) x3. Appropriate mood and affect Course Vital Signs Vital signs: Vital Signs Temperature 36.2 C L 02/25/24 12:23 Pulse 80 02/25/24 12:23 Respiratory Rate 18 02/25/24 12:23 Blood Pressure 116/65 02/25/24 12:23 Pulse Oximetry 96 02/25/24 12:23 Temperature 36.2 C L 02/25/24 12:23 Temperature Source Temporal Artery Scan 02/25/24 12:23 Pulse 80 02/25/24 12:23 Respiratory Rate 18 02/25/24 12:23 Respiratory Effort Normal, Non-Labored 02/25/24 12:31 Blood Pressure 116/65 02/25/24 12:23 Blood Pressure Position Sitting 02/25/24 12:23 Pulse Oximetry 96 02/25/24 12:23 Oxygen Delivery Method Nasal Cannula 02/25/24 12:23 Oxygen Flow Rate 2 02/25/24 12:23 Pain Level 0 02/25/24 12:36 Comment painful when moving leg 02/25/24 12:23 Lab/Test Results Lab/Test Results: Laboratory Tests Range/Units 02/25/24 12:52 WBC (4.4-10.8) 10^3/uL 8.93 RBC (4.36-5.78) 10^6/uL 4.25 L Hgb (13.5-17.5) g/dL 13.0 L Hct (40.0-50.0) % 38.4 L MCV (80-95) fL 90 MCH (27.0-33.0) pg 30.6 MCHC (32.0-36.0) % 33.9 RDW (11.8-14.1) % 15.1 H Plt Count (130-400) 10^3/uL 142 MPV (8.0-11.0) fL 9.3 Immature Gran % % 0.6 Neutrophils % % 82.9 Lymphocytes % % 8.0 Monocytes % % 7.3 Eosinophils % % 1.0 Basophils % % 0.2 Nucleated RBC % (0.0-0.3) % 0.0 Absolute Neutrophils (1.2-6.7) 10^3/uL 7.41 H Absolute Lymphocytes (1.2-3.4) 10^3/uL 0.71 L Absolute Monocytes (0.1-0.8) 10^3/uL 0.65 Absolute Eosinophils (0.0-0.7) 10^3/uL 0.09 Absolute Basophils (0.0-0.2) 10^3/uL 0.02 PT (9.1-11.1) sec 11.1 INR (0.9-1.1) 1.1 APTT (23.6-32.8) sec 27.2 VBG Lactate (0.9-1.7) mmol/L 1.0 Medical Decision Making 78-year-old male with a past medical history of high cholesterol, previous strokes, seizures, previous humeral fracture, previous urinary tract infections which results to significant weakness, previous prostate cancer and stenting for kidney stone in the past, presents today for evaluation of weakness and fall onto his left hip. Patient states that he has been weak for the past 12 to 18 hours, he fell last night onto his left hip which developed some pain. He did not hit his head. He states that it was a controlled fall and he did not hit his head or anything else. He denies any other complaints at this time. He denies fever or chills. He denies vomiting or diarrhea. No numbness or tingling. is at bedside and states that he has not been drinking much fluids recently. Exam demonstrates tenderness over the left hip, mild pain with passive movement. Unable to actively lift and flex the hip secondary to mild pain. No other signs of trauma. Concern for hip fracture. Will get x-rays to evaluate for trauma, rehydrate, evaluate for UTI or pneumonia, monitor closely and reassess. 2:53 PM X-ray shows a subcapital fracture of the left hip, but no other acute process. Chest x-ray negative for acute process. No white count, hemoglobin is 13, lactate is normal at 1. Electrolytes normal, troponin normal, thyroid function normal. Still pending urinalysis. The evidence of the fracture, I did reach out to orthopedics, Dr. Bhandari will be on tomorrow and will evaluate the patient then. Patient will be admitted to medicine in the meantime. We will reach out for admission. Discussed the case with Dr. Maloney, he agrees with the assessment and plan. Still pending urinalysis at this time. I have extensively reviewed the treatment plan with the patient. I have addressed all patient concerns at this time. I have also discussed the plan with the admitting physician and they agree with the current assessment and plan and have agreed to assume responsibility for the patient. All parties demonstrate verbal understanding and agreement with our assessment and plan at this time. The documentation in this chart was dictated using [employer] dictation software. Please excuse any dictation errors. FINDINGS: The AP view. There is no evidence of right hip fracture. Subtle irregularity in the left femoral neck noted which may be a subtle subcapital fracture. IMPRESSION: Subcapital fracture of the left femoral neck FINDINGS: MEDIASTINUM: Normal. HEART: Normal. PULMONARY VASCULATURE: Normal. LUNGS: The lungs are hyperinflated suggesting underlying COPD. No focal infiltrates are seen. PLEURAL SPACE: No pleural effusion or pneumothorax. BONE:Within normal limits for the patient's age. OTHER FINDINGS:Normal. IMPRESSION: No acute pulmonary findings. Quality:SDOH Health Related Social Needs: No Data to Display PFSH All Active Problems (Updated 02/25/24 @ 15:26 by Tariq Ventura DO) Closed left hip fracture (Acute) COVID (Acute) Closed fracture of left proximal humerus (Acute 01/10/23) Breakthrough seizure (Acute) Medical History Seizure in setting of fever and uti CVA (cerebral vascular accident) Lymphoma Prostate cancer Hypertension Surgical History History of craniotomy for brain bleed Family History Father Personal history of malignant neoplasm prostate cancer Social History Smoking/Tobacco Use Status: Current every day Tobacco Type: cigarettes Smoking risk assessment performed?: Yes Alcohol Intake: former Drug use: Never Substance use type: does not use Housing: house Current gender identity: male Do you feel safe at home: Yes Do you feel safe in your relationship?: Yes
[2024-02-25 13:45] LABS: ALT 24 U/L (16-63); AST 15 U/L (15-37); Albumin 3.1 g/dL (3.4-5.0); Alkaline Phosphatase 102 U/L (46-116); Anion Gap 6.7 mmol/L (3-11); BUN 12 mg/dL (7-18); Bilirubin, Total 0.76 mg/dL (0.2-1.0); CO2 28.3 mmol/L (21.0-32.0); CREATININE 1.1 mg/dL (0.70-1.30); Calcium 8.9 mg/dL (8.5-10.1); Chloride 102 mmol/L (98-107); Estimated GFR 68.71 (mL/min/1.73m2); Glucose 197 mg/dL (74-106); Potassium 3.5 mmol/L (3.5-5.1); Sodium 137 mmol/L (136-145); Total Protein 6.6 g/dL (6.4-8.2)
[2024-02-25 13:55] LABS: TSH (W/Ref FT4) 0.89 uIU/mL (0.36-3.74); Troponin I < 50 ng/L (< or =60)
--- NOTE | 2024-02-25 14:29 | DI.RAD_ITS ---
Exam(s) XR CHEST 2V PA LATERAL EXAM: XR CHEST 2V PA LATERAL CLINICAL HISTORY: cough, eval for pneumonia TECHNIQUE: 2D digital imaging was performed of the chest. Two images were obtained. PA and lateral views were obtained. COMPARISON: CR,XR XR PORTABLE CHEST AP from 08/22/2023 FINDINGS: MEDIASTINUM: Normal. HEART: Normal. PULMONARY VASCULATURE: Normal. LUNGS: The lungs are hyperinflated suggesting underlying COPD. No focal infiltrates are seen. PLEURAL SPACE: No pleural effusion or pneumothorax. BONE:Within normal limits for the patient's age. OTHER FINDINGS:Normal. IMPRESSION: No acute pulmonary findings. DATA REPOSITORY: RADIATION DOSE DELIVERED:
--- NOTE | 2024-02-25 14:30 | DI.RAD_ITS ---
Exam(s) XR PELVIS AP EXAM: XR PELVIS AP CLINICAL HISTORY: fall, left hip tenderness, eval for fx. TECHNIQUE: 2D digital imaging was performed. COMPARISON: No exams were available for comparison FINDINGS: The AP view. There is no evidence of right hip fracture. Subtle irregularity in the left femoral neck noted which may be a subtle subcapital fracture. IMPRESSION: Subcapital fracture of the left femoral neck DATA REPOSITORY: RADIATION DOSE DELIVERED:
--- NOTE | 2024-02-25 14:30 | DI.RAD_ITS ---
Exam(s) XR FEMUR LT EXAM: XR FEMUR LT CLINICAL HISTORY: fall, left hip tenderness, eval for fx. TECHNIQUE: 2D digital imaging was performed. COMPARISON: No exams were available for comparison FINDINGS: Four views There is a subcapital fracture of the left hip, nondisplaced. Remainder of the femur appears unremar kable. No hip joint space narrowing. Vascular calcification the femoral artery is noted. IMPRESSION: Subcapital fracture of the left femoral neck DATA REPOSITORY: RADIATION DOSE DELIVERED:
--- NOTE | 2024-02-25 15:01 | HPE_ITS ---
<Statement entered by Damian Arita - 02/26/24 10:17> A agree with the note above. Additional history about his history of CVA and subsuquent intracranial hemorrhage and seizures was noted in Dr. Bhandari's note. I presume he is not on ASA despite his vascular disease due to this history. Dr. Bhandari was able to get this information from [facility]. Prostate cancer and lymphoma both from years ago, not active. Evolution of size of AAA is confusing but he was not being evaluated for repair. He underwent general anesthesia in [facility] at [facility] without complication. See today's ICU note for ongoing care. Date of service: 02/25/24 Time of Service: 15:01 Assessment and Plan Assessment and plan (1) Closed left hip fracture: Status: Acute Assessment and plan: Ortho consulted: Dr. Bhandari -Surgery on 02/26/2024 -NPO after midnight -Hold lovenox at Pain mangement and bowel management -Scheduled APAP, -Colace BID (2) Breakthrough seizure: Status: Acute Assessment and plan: On lacosamide: Own Rx to pharmacy d/t difficulty swallowing larger pills Not using Nasal diazepam at home If seizure: Lorazepam IV PRN -call provider Discussed with Dr. Arita History of Present Illness History of Present Illness Chief Complaint: left hip pain s/p fall Narrative: This 78 years old male patient with past medical history of hyperlipidemia, strokes, seizures on lacosamide and midazolam nasal spray, previous humeral fracture, urinary tract infection resulting in significant weakness, prostate cancer and kidney stent placement presented to the to the ED at [facility] for evaluation of weakness, fall and persistent left hip pain status post fall. The patient reported weakness starting 18 hours prior to fall that occurred last night. The patient denied hitting his head and mention that the fall was controlled. The patient reported no order symptoms in the ED. The patient denied fever or chills, vomiting or diarrhea, numbness or tingling. The patient's spouse reported that the patient has not been drinking much fluid recently. The workup in the ED was remarkable for a left femur x-ray showing subcapital fracture of the left hip that is non-displaced with noticeable vascular calcification to the femoral artery. The CBC and BMP were unremarkable. The hospitalist was consulted and patient admitted to the medical surgical floor for management and evaluation of the left hip subcapital fracture with plan for surgical repair on 02/26/2024. During the call the ED provider Dr. Silva mention that the case was discussed with orthopedist Dr. Bhandari. In the ED the patient received IV hydration with 1 L of lactated Ringer's. No leukocytosis was noted but urine showed a small amount of leuk esterase; chemistry was unremarkable. We will initiate treatment with IV ceftriaxone and order a urine patient culture. The patient also reported an extensive renal history with percutaneous lithotripsy, both thoracic and abdominal aneurysm which are follow-up outpatient, and multiple falls in the past. Past healed sacral bedsores reported but the patient applied protective dressing to prevent further sores; no open wound mentioned. Nursing to verify and follow-up with provider if open wounds are found. The patient was initially DNR/DNI but decided to have a short CPR trial if his heart was to stop and declined intubation for any length of time. Review of Systems All systems reviewed & are unremarkable except as noted in HPI and below PFSH All Active Problems (Updated 02/26/24 @ 07:15 by Rao Bhandari MD) Atherosclerosis of artery (Acute) Abdominal aortic aneurysm (AAA) (Acute) Thoracic aortic aneurysm (Acute) Thoracic aorta atherosclerosis (Acute) Closed left hip fracture (Acute) COVID (Acute) Breakthrough seizure (Acute) Medical History (Updated 02/26/24 @ 07:15 by Rao Bhandari MD) Closed fracture of left proximal humerus (01/10/23) Seizure in setting of fever and uti CVA (cerebral vascular accident) Lymphoma Prostate cancer Hypertension Surgical History History of craniotomy for brain bleed Family History Father Personal history of malignant neoplasm prostate cancer Social History Smoking/Tobacco Use Status: Current every day Tobacco Type: cigarettes Smoking packs per day: 1 Smoking cigarettes per day: 20.0 Smoking risk assessment performed?: Yes Alcohol Intake: former Drug use: Never Substance use type: does not use Housing: house Current gender identity: male Do you feel safe at home: Yes Do you feel safe in your relationship?: Yes Meds Allergies and Home Medications Allergies Allergy/AdvReac Type Severity Reaction Status Date / Time Iodinated Contrast Media Allergy Skin Rash Verified 02/25/24 12:33 Home Medications Medication Instructions Recorded Confirmed Type atorvastatin 80 mg tablet 80 mg PO DAILY 01/05/21 02/25/24 History cholecalciferol (vitamin D3) 25 25 mcg PO .qod 01/05/21 02/25/24 History mcg (1,000 unit) tablet (Vitamin D3) lacosamide 100 mg tablet 200 mg PO BID 01/05/21 02/25/24 History tamsulosin 0.4 mg capsule 0.4 mg PO BID 01/05/21 02/25/24 History lactobacillus combo #5 150 mg (2 1 mg PO DAILY 12/12/21 02/25/24 History billion cell) tablet,delayed release melatonin 3 mg tablet 3 mg PO HS 12/12/21 02/25/24 History Bacillus coagulans-inulin 1 1 cap PO DAILY 01/23/23 02/25/24 History billion cell-250 mg capsule midazolam 5 mg/spray (0.1 mL) 1 spray intranasal ONCE 01/23/23 02/25/24 History nasal spray potassium chloride 10 mEq 10 meq PO DAILY 02/25/24 02/25/24 History tablet,extended release(part/cryst) (Klor-Con M) Exam Narrative Exam Narrative: Constitutional The patient is in bed comfortable acute distress and has thin/ cachectic body habitus HENMT: Facial structures with normal appearance Eyes: Well aligned, intact ROM Neuro:alert and oriented X4. 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 Results Labs 02/26/24 05:46 02/26/24 05:46 Labs: Laboratory Results - last 24 hr 02/25/24 12:52 WBC 8.93 RBC 4.25 L Hgb 13.0 L Hct 38.4 L MCV 90 MCH 30.6 MCHC 33.9 RDW 15.1 H Plt Count 142 MPV 9.3 Immature Gran % 0.6 Neutrophils % 82.9 Lymphocytes % 8.0 Monocytes % 7.3 Eosinophils % 1.0 Basophils % 0.2 Nucleated RBC % 0.0 Absolute Neutrophils 7.41 H Absolute Lymphocytes 0.71 L Absolute Monocytes 0.65 Absolute Eosinophils 0.09 Absolute Basophils 0.02 PT 11.1 INR 1.1 APTT 27.2 VBG Lactate 1.0 Sodium 137 Potassium 3.5 Chloride 102 Carbon Dioxide 28.3 Anion Gap 6.7 BUN 12 Creatinine 1.1 Est GFR (CKD-EPI 2020) 68.71 Glucose 197 H Calcium 8.9 Total Bilirubin 0.76 AST 15 ALT 24 Alkaline Phosphatase 102 Troponin I < 50 Total Protein 6.6 Albumin 3.1 L TSH 0.89 Last Vital Signs Temp 36.2 C L 02/25/24 12:23 Pulse 80 02/25/24 12:23 Resp 18 02/25/24 12:23 BP 116/65 02/25/24 12:23 Pulse Ox 96 02/25/24 12:23 Time Spent Time spent with Patient: >75 minutes Time was spent: preparing to see the patient(eg.review tests), obtaining and/or reviewing separately otained hiistory, ordering medications,tests, procedures, referring, communicating with other health childcare aide, indepentently interpreting results, counseling the patient and care coordination
[2024-02-25 15:50] LABS: Magnesium 1.3 mg/dL (1.8-2.4)
--- NOTE | 2024-02-25 16:06 | W.PC.ACHO ---
Registration Status: REG ER Primary Language: Preferred Language: Divehi ED Information & Data Chief Complaint Fall/Non TraumaCriteria 02/25/24 13:35 Triage Note last night at 830-930pm fall 02/25/24 12:23 , pain to left hip Subjective on oxygen. left leg pain 02/25/24 12:31 from fall. Medical / Surgical History (Last Reviewed 02/25/24 @ 13:34 by Tariq Ventura DO) Seizure CVA (cerebral vascular accident) Lymphoma Prostate cancer Hypertension (Last Reviewed 02/25/24 @ 13:34 by Tariq Ventura DO) History of craniotomy Most Recent Vital Signs Temperature 36.2 C L 02/25/24 12:23 Temperature Source Temporal Artery Scan 02/25/24 12:23 Pulse 80 02/25/24 12:23 Respiratory Rate 18 02/25/24 12:23 Respiratory Effort Normal, Non-Labored 02/25/24 12:31 Blood Pressure 116/65 02/25/24 12:23 Blood Pressure Position Sitting 02/25/24 12:23 Pulse Oximetry 96 02/25/24 12:23 Oxygen Delivery Method Nasal Cannula 02/25/24 12:23 Oxygen Flow Rate 2 02/25/24 12:23 Pain Level 0 02/25/24 12:36 Comment painful when moving leg 02/25/24 12:23 Allergies Iodinated Contrast Media Allergy (Verified 02/25/24 12:33) Skin Rash Precautions Isolation Standard precaution 02/25/24 12:31 IV IV Catheter Type [Right Saline Lock Antecubital] IV Catheter Gauge [Right 20 Antecubital] Diagnostics 02/25/24 02/25/24 Range/Units 15:36 12:52 WBC 8.93 (4.4-10.8) 10^3/uL RBC 4.25 L (4.36-5.78) 10^6/uL Hgb 13.0 L (13.5-17.5) g/dL Hct 38.4 L (40.0-50.0) % MCV 90 (80-95) fL MCH 30.6 (27.0-33.0) pg MCHC 33.9 (32.0-36.0) % RDW 15.1 H (11.8-14.1) % Plt Count 142 (130-400) 10^3/uL MPV 9.3 (8.0-11.0) fL Immature Gran % 0.6 % Neutrophils % 82.9 % Lymphocytes % 8.0 % Monocytes % 7.3 % Eosinophils % 1.0 % Basophils % 0.2 % Nucleated RBC % 0.0 (0.0-0.3) % Absolute Neutrophils 7.41 H (1.2-6.7) 10^3/uL Absolute Lymphocytes 0.71 L (1.2-3.4) 10^3/uL Absolute Monocytes 0.65 (0.1-0.8) 10^3/uL Absolute Eosinophils 0.09 (0.0-0.7) 10^3/uL Absolute Basophils 0.02 (0.0-0.2) 10^3/uL PT 11.1 (9.1-11.1) sec INR 1.1 (0.9-1.1) APTT 27.2 (23.6-32.8) sec VBG Lactate 1.0 (0.9-1.7) mmol/L Sodium 137 (136-145) mmol/L Potassium 3.5 (3.5-5.1) mmol/L Chloride 102 (98-107) mmol/L Carbon Dioxide 28.3 (21.0-32.0) mmol/L Anion Gap 6.7 (3-11) mmol/L BUN 12 (7-18) mg/dL Creatinine 1.1 (0.70-1.30) mg/dL Est GFR (CKD-EPI 2020) 68.71 (mL/min/1.73m2) Glucose 197 H (74-106) mg/dL Calcium 8.9 (8.5-10.1) mg/dL Magnesium 1.3 L (1.8-2.4) mg/dL Total Bilirubin 0.76 (0.2-1.0) mg/dL AST 15 (15-37) U/L ALT 24 (16-63) U/L Alkaline Phosphatase 102 (46-116) U/L Troponin I < 50 (< or =60) ng/L Total Protein 6.6 (6.4-8.2) g/dL Albumin 3.1 L (3.4-5.0) g/dL TSH 0.89 (0.36-3.74) uIU/mL Intake and Output - 24 Hour Total 02/25/24 12:08 thru 02/25/24 14:37 Intake Total 1010 Balance 1010 Weight 54.431 kg Intake: IV 1010 Falls Risk Assessment History of Falls Admit Due to Fall 02/25/24 12:36 Contributing Factors No Factors 02/25/24 12:36 Ambulatory Aids Uses ambulatory device 02/25/24 12:36 Tubes/Lines None 02/25/24 12:36 Gait Evaluation No gait disturbance 02/25/24 12:36 Cognition No cognitive impairment 02/25/24 12:36 Fall Total Score 40 02/25/24 12:36 Level of Risk Moderate Risk 02/25/24 12:36 v v v v v v v v v Sending and/or Receiving Nurses: Please use comment section below to note any information pertinent to the patient hand-off not included above. Information / Comments: Patient fell at home yesterday 02/24/24. Has a fracture and will be admitted for management. Family at bedside. Report received from: MAYA Piña
[2024-02-25] MEDS: cefTRIAXone 1 GM/50 ML BAG IVPB (16:08)
--- NOTE | 2024-02-25 16:24 | NUR.NOTE ---
Nursing Note: arrived from ER alert and orientated x4, denies pain but reports some slight discomfort, mostly because Im in the hospital left elbow skin tear noted on arrival
--- NOTE | 2024-02-25 18:43 | DI.CT_ITS ---
Exam(s) CT LOWER EXTREMITY LT WO EXAM: CT LOWER EXTREMITY LT WO CLINICAL HISTORY: Eval displacement and comminution of left hip frx. TECHNIQUE: Imaging Protocol: Axial computed tomography images with coronal and sagittal reformatted images were created and reviewed. COMPARISON: CR XR PELVIS AP from 02/25/2024 FINDINGS: Bones: There is a subcapital fracture of the left femur. There is no comminution. There is impacti on of the fracture greatest posteriorly. The bones are osteopenic. No cellulitic or osteomyelitic c hanges are identified. There are degenerative changes seen in the lower lumbar spine. The sacroilia c joints are intact and unremarkable. Vascular calcifications are present. Soft Tissues: Prostatic seeds are present. The urinary bladder is mildly distended. There are densi ty seen in the dependent portion of the urinary bladder which may represent bladder stones. IMPRESSION: Mildly impacted subcapital fracture of the left femur. The degree of impaction is most marked bill board poster iorly. No significant comminution is seen. RADIATION DOSE DELIVERED: 270.58mGy.cm Total DLP 270.58mGy.cm Total DLP DATA REPOSITORY: All CT scans at this facility are submitted to the National Radiology Data Registry (NRDR) Dose Index Registry (DIR) with the [employer] ([employer]). RADIATION OPTIMIZATION: All CT scans at this facility use at least one of these dose optimization te chniques: automated exposure control; mA and/or kV adjustment per patient size (includes targeted exa ms where dose is matched to clinical indication); or iterative reconstruction.
[2024-02-25 19:10] VITALS: BP 145/67; PULSE 54; RESP 16; TEMP 37; O2SAT 97
[2024-02-25] MEDS: Melatonin 3 MG TAB PO (19:49)
[2024-02-25] MEDS: Tamsulosin 0.4 MG CAPCR PO (19:49)
[2024-02-25] MEDS: Docusate Sodium 100 MG CAP PO (19:49)
[2024-02-25] MEDS: Normal Saline Flush 10 ML SYR IVP (19:50)
[2024-02-25] MEDS: Lidocaine 2% Jelly 11 ML SYR UR (20:29)
[2024-02-25 20:52] LABS: Bilirubin Negative (Negative); Blood Trace-intact (Negative); Clarity Clear (Clear); Glucose Negative (Negative); Ketones Negative (Negative); Leukocyte Esterase Trace (Negative); Nitrite Negative (Negative); Specific Gravity 1.015 (1.005-1.025); Urobilinogen 0.2 mg/dL (Up to 0.2)
[2024-02-25 21:02] LABS: Bacteria Rare HPF (Negative); C & S Indicated? C&S Done As Ordered; Casts Negative LPF (Negative); Crystals Negative HPF (Negative); Epithelial Cells Rare HPF (Negative); Mucus Negative (Negative); Other Cells Rare Transitional (Negative); RBC 0-2 HPF (0-2)
[2024-02-25] MEDS: ACETAMINOPHEN 1,000 MG/100 ML BTL 400 MG IVPB (22:05)
[2024-02-25 22:36] VITALS: O2SAT 92
[2024-02-25 23:26] VITALS: BP 111/66; PULSE 59; RESP 16; TEMP 37.3; O2SAT 96
[2024-02-25] MEDS: MAGNESIUM SULFATE 4 GM/100 ML BAG IVINF (23:29)
[2024-02-26] VITALS (84 sets, daily range): BP systolic 110–136; BP diastolic 51–58; PULSE 47–80; RESP 14–24; TEMP 36.6–37.1; O2SAT 90–100; BMI 17.2
[2024-02-26] MEDS: Lactated Ringers 1,000 ML 50 ML IV
[2024-02-26] MEDS: ACETAMINOPHEN 1,000 MG/100 ML BTL 400 MG IVPB ×3 (05:37→21:58)
[2024-02-26 06:33] LABS: Abs Immature Grans 0.06 10^3/uL (0.0-0.06); Absolute Basophil Count 0.04 10^3/uL (0.0-0.2); Absolute Eosinophil Count 0.37 10^3/uL (0.0-0.7); Absolute Lymphocyte Count 0.92 10^3/uL (1.2-3.4); Absolute Monocyte Count 0.57 10^3/uL (0.1-0.8); Absolute Neutrophil Count 5.25 10^3/uL (1.2-6.7); Basophils % 0.6 %; Eosinophils % 5.1 %; HCT 38.5 % (40.0-50.0); HGB 12.8 g/dL (13.5-17.5); Immature Grans % 0.8 %; Lymphocytes % 12.8 %; MCH 30.5 pg (27.0-33.0); MCHC 33.2 % (32.0-36.0); MCV 92 fL (80-95); MPV 9.1 fL (8.0-11.0); Monocytes % 7.9 %; Neutrophils % 72.8 %; Platelet Count 125 10^3/uL (130-400); RBC 4.19 10^6/uL (4.36-5.78); RDW 14.8 % (11.8-14.1); RDW-SD 50.4 fL; WBC 7.21 10^3/uL (4.4-10.8)
[2024-02-26 06:43] LABS: BUN 9 mg/dL (7-18); CREATININE 0.9 mg/dL (0.70-1.30); Calcium 8.9 mg/dL (8.5-10.1); Chloride 105 mmol/L (98-107); Estimated GFR 87.42 (mL/min/1.73m2); Glucose 87 mg/dL (74-106); Magnesium 2.5 mg/dL (1.8-2.4); Potassium 3.5 mmol/L (3.5-5.1); Sodium 141 mmol/L (136-145)
--- NOTE | 2024-02-26 06:55 | OCONE_ITS ---
Date of service: 02/26/24 Time of Service: 06:55 History of Present Illness History of Present Illness Chief Complaint: Left Hip Pain Narrative: Narcisa is a 78-year-old male with multiple medical comorbidities who presented to the emergency department yesterday with left hip pain. He reports having a controlled descent on approximately Wednesday. The emergency department note reports that this happened on Wednesday. Either way, it happened prior to his admission. He was able to initially mobilize but had significant pain in doing so and thus presented to the emergency department. He feels weak but has no other associated symptoms. He denies fevers or chills. He denies any chest pain or shortness of breath or cough. He has a history of seizures for which she takes lacosamide and then utilizes intranasal midazolam for seizures to occur. He seems to report having symptoms of a seizure which will renae with the use of midazolam although this happens infrequently and he cannot remember when he last had a major seizure. He also has significant atherosclerotic disease for which we do not have any significant documentation. 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 As for the left hip he reports pain about the left thigh and proximal left leg with any weightbearing or with attempts at motion. He denies new numbness or tingling. He denies pain in the knee or lower leg. He denies any head trauma or injury to other extremity. He did have a proximal humerus fracture 1 year ago after a fall, this was treated nonoperatively. Consults Consult date: 02/25/24 Requesting physician: Tariq Ventura Consult Reason Left hip fracture Assessment and Plan Assessment and plan (1) Closed left hip fracture: Status: Acute Assessment and plan: Narcisa is a 78-year-old male who fell in a controlled fashion onto the left hip. He does report being able to walk on this initially. It is likely that he had a small nondisplaced fracture was propagated incomplete itself over a period of time. It is unclear exactly when the fall happened per his report but it was delayed until presentation to the emergency department. Currently is in an acceptable position with mild valgus impaction without significant anterior posterior displacement. He has minimal ambulation requirements at home and given his other medical comorbidities I think a percutaneous screw fixation makes the most sense. There is always a chance, approximate 15%, that he has avascular necrosis or worsening arthritis or cut out from the screws which would require secondary procedures. However, I do not believe the increased risk in surgical time for arthroplasty is sensible in the situation. I also feel that he has fairly poor insight into his overall health and conditions. This makes having a reasonable conversation about risk and weighing pros and cons of various treatment options challenging. Nevertheless, I recommend proceeding with the screw treatment of the left hip to stabilize the fracture and allow mobilization and improve pain. I discussed this procedure with him. I reviewed some the technical details. I discussed risk to include bleeding, infection, pain, stiffness, malunion, nonunion, avascular necrosis, worsening arthritis, blood clot, damage to nerves and vessels, damage to muscles and tendons, need for repeat procedures. Despite these risk, he elects to proceed. Please see the included problems below but he does have significant medical history. He presented as a DNR/DNI but would receive some resuscitation attempts if necessary but would not like prolonged intubation. I did explain intubation would be a portion of his anesthesia which she agrees to. He does seem to become somewhat overwhelmed with the medical complication of his case but indicates his desire to have improved pain and mobilization. While we may not have primary care documentation we have exhaustive notes from the [facility] system which all identified the below mentioned problems but do not address any further treatment needed at this time although there may be other pending referrals outside of the systems which cannot be identified. I have discussed this case at length with anesthesia, Marissa Layne CRNA, where we will provide the care he needs for his hip but minimize risk given that there are some concerns with his vascular status. (2) CVA (cerebral vascular accident): Assessment and plan: Per the [facility] notes he had a MCA cerebrovascular accident in September 2019 which was complicated by subdural hematoma after embolization along with traumatic subdural hematoma and a subarachnoid hemorrhage in January 2021. He was treated for this with craniotomy and resultant seizures afterwards including some residual memory difficulties. He follows neurology at [facility], Dr. Garcia. (3) Prostate cancer: Assessment and plan: I was able to review the [facility] system where there is report of a localized prostate cancer treated in April 2020 with external beam radiation therapy. He is followed by urology at [facility] and underwent urologic procedure with general anesthesia in a prone position in October 21, 2023 without complication. (4) Lymphoma: Assessment and plan: Diagnosed with follicular lymphoma and treated in 2016. By the most recent oncology note from October 2023 he is presumed to be in remission at this time. He had a benign examination at this point is being followed with annual labs. (5) Thoracic aorta atherosclerosis: Status: Acute Assessment and plan: Significant calcifications within the thoracic aorta. (6) Thoracic aortic aneurysm: Status: Acute Assessment and plan: CT scan of his chest from 2021 documents a 4 cm thoracic aortic aneurysm although this was done without contrast. (7) Abdominal aortic aneurysm (AAA): Status: Acute Assessment and plan: Most recent renal CT scan performed here at [facility] along with a CT abdomen pelvis from September 2023 performed at [facility] shows a bilobed saccular infrarenal aortic aneurysm involving some the left common iliac artery with a maximum diameter 5.1 cm. (8) Atherosclerosis of artery: Status: Acute Assessment and plan: Including the above-mentioned aneurysms there is notable atherosclerosis throughout his vascular chair. There is mention in multiple notes from his specialist at various locations but there is no mention of further follow-up. There is likely some mention within the primary care provider note but none for here to review. I have reviewed multiple documentations from within the [facility] system and within our EMR system as well. He underwent surgery in September 2023 with there is no specific mention of his ongoing cardiovascular disease process including the aneurysms. Review of Systems All systems reviewed & are unremarkable except as noted in HPI and below PFSH All Active Problems (Updated 02/26/24 @ 07:15 by Rao Bhandari MD) Atherosclerosis of artery (Acute) Abdominal aortic aneurysm (AAA) (Acute) Thoracic aortic aneurysm (Acute) Thoracic aorta atherosclerosis (Acute) Closed left hip fracture (Acute) COVID (Acute) Breakthrough seizure (Acute) Medical History (Updated 02/26/24 @ 07:15 by Rao Bhandari MD) Closed fracture of left proximal humerus (01/10/23) Seizure in setting of fever and uti CVA (cerebral vascular accident) Lymphoma Prostate cancer Hypertension Surgical History History of craniotomy for brain bleed Family History Father Personal history of malignant neoplasm prostate cancer Social History Smoking/Tobacco Use Status: Current every day Tobacco Type: cigarettes Smoking risk assessment performed?: Yes Alcohol Intake: former Drug use: Never Substance use type: does not use Housing: house Current gender identity: male Do you feel safe at home: Yes Do you feel safe in your relationship?: Yes Exam Const General: cooperative, comfortable, no acute distress and frail appearing Extrem Other: Evaluation of the left lower extremity shows no significant abnormalities. Range of motion was not tested but he is able demonstrate some gentle motion of his foot and ankle. No overlying skin changes. No ecchymosis. No abrasions or lacerations. No pain with palpation of the distal femur, knee, leg, ankle, or foot. He is able to demonstrate active ankle dorsiflexion, plantarflexion, great toe extension, great toe flexion. Sensation is intact to light touch over the deep and superficial peroneal nerve and tibial nerve. Foot is warm well- perfused. Results Last Vital Signs Temp 37.3 C 02/25/24 23:26 Pulse 59 L 02/25/24 23:26 Resp 16 02/25/24 23:26 BP 111/66 02/25/24 23:26 Pulse Ox 96 02/25/24 23:26 Labs 02/26/24 05:46 02/26/24 05:46 Labs: Laboratory Results - last 24 hr 02/25/24 02/25/24 02/25/24 12:52 15:05 15:36 WBC 8.93 RBC 4.25 L Hgb 13.0 L Hct 38.4 L MCV 90 MCH 30.6 MCHC 33.9 RDW 15.1 H Plt Count 142 MPV 9.3 Immature Gran % 0.6 Neutrophils % 82.9 Lymphocytes % 8.0 Monocytes % 7.3 Eosinophils % 1.0 Basophils % 0.2 Nucleated RBC % 0.0 Absolute Neutrophils 7.41 H Absolute Lymphocytes 0.71 L Absolute Monocytes 0.65 Absolute Eosinophils 0.09 Absolute Basophils 0.02 PT 11.1 INR 1.1 APTT 27.2 VBG Lactate 1.0 Sodium 137 Potassium 3.5 Chloride 102 Carbon Dioxide 28.3 Anion Gap 6.7 BUN 12 Creatinine 1.1 Est GFR (CKD-EPI 2020) 68.71 Glucose 197 H Calcium 8.9 Magnesium 1.3 L Total Bilirubin 0.76 AST 15 ALT 24 Alkaline Phosphatase 102 Troponin I < 50 Total Protein 6.6 Albumin 3.1 L TSH 0.89 Urine Color Yellow Urine Clarity Clear Urine pH 6.0 Ur Specific [place] 1.015 Urine Protein Negative Urine Ketones Negative Urine Blood Trace-intact H Urine Nitrite Negative Urine Bilirubin Negative Urine Urobilinogen 0.2 Ur Leukocyte Esterase Trace H Urine RBC 0-2 Urine WBC 5-10 Ur Epithelial Cells Rare Urine Crystals Negative Urine Bacteria Rare Urine Casts Negative Urine Mucus Negative Urine Other Rare Transitional Ur Culture Indicated? C&S Done As Ordered Urine Glucose Negative 02/26/24 05:46 WBC 7.21 RBC 4.19 L Hgb 12.8 L Hct 38.5 L MCV 92 MCH 30.5 MCHC 33.2 RDW 14.8 H Plt Count 125 L MPV 9.1 Immature Gran % 0.8 Neutrophils % 72.8 Lymphocytes % 12.8 Monocytes % 7.9 Eosinophils % 5.1 Basophils % 0.6 Nucleated RBC % 0.0 Absolute Neutrophils 5.25 Absolute Lymphocytes 0.92 L Absolute Monocytes 0.57 Absolute Eosinophils 0.37 Absolute Basophils 0.04 PT INR APTT VBG Lactate Sodium 141 Potassium 3.5 Chloride 105 Carbon Dioxide 30.0 Anion Gap 6.0 BUN 9 Creatinine 0.9 Est GFR (CKD-EPI 2020) 87.42 Glucose 87 Calcium 8.9 Magnesium 2.5 H Total Bilirubin AST ALT Alkaline Phosphatase Troponin I Total Protein Albumin TSH Urine Color Urine Clarity Urine pH Ur Specific [place] Urine Protein Urine Ketones Urine Blood Urine Nitrite Urine Bilirubin Urine Urobilinogen Ur Leukocyte Esterase Urine RBC Urine WBC Ur Epithelial Cells Urine Crystals Urine Bacteria Urine Casts Urine Mucus Urine Other Ur Culture Indicated? Urine Glucose Imaging Imaging Studies: X-ray of the pelvis and left femur demonstrates a mildly impacted, valgus oriented, subcapital femoral neck fracture. There is no apparent extension into the proximal femur. There is no significant arthritic change. CT scan of the left hip was also obtained and demonstrates no significant comminution with some mild posterior impaction without significant malalignment.
--- NOTE | 2024-02-26 07:30 | RT.EKG_ITS ---
APPROVED REPORT Exam: Resting ECG Reason for Exam: bradycardia Patient Location: I HR:80 bpm ECG Measurements Heart Rate 80 AXIS NC 170 P 49 QRSd 135 QRS 74 QT 434 T 67 QTc 501 Conclusion Sinus rhythm...normal P axis, V-rate 50- 99 Right bundle branch block...QRSd>120, terminal axis(90,270)
--- NOTE | 2024-02-26 07:40 | ANES.PREOP_ITS ---
General Info Date of Service Date Performed: 02/26/24 Height: 5 ft 10 in Weight: 54.431 kg Body Mass Index (BMI): 17.2 Surgical Procedure: Operation Date: 02/26/24 08:00 Proposed Procedure Side Surgeon p Hip Cannulated Fx Left Rao Bhandari MD Meds Allergies and Home Medications Allergies Allergy/AdvReac Type Severity Reaction Status Date / Time Iodinated Contrast Media Allergy Skin Rash Verified 02/25/24 12:33 Home Medication Medication Instructions Recorded atorvastatin 80 mg tablet 80 mg PO DAILY 01/05/21 cholecalciferol (vitamin D3) 25 25 mcg PO .qod 01/05/21 mcg (1,000 unit) tablet (Vitamin D3) lacosamide 100 mg tablet 200 mg PO BID 01/05/21 tamsulosin 0.4 mg capsule 0.4 mg PO BID 01/05/21 lactobacillus combo #5 150 mg (2 1 mg PO DAILY 12/12/21 billion cell) tablet,delayed release melatonin 3 mg tablet 3 mg PO HS 12/12/21 Bacillus coagulans-inulin 1 1 cap PO DAILY 01/23/23 billion cell-250 mg capsule midazolam 5 mg/spray (0.1 mL) 1 spray intranasal ONCE 01/23/23 nasal spray potassium chloride 10 mEq 10 meq PO DAILY 02/25/24 tablet,extended release(part/cryst) (Klor-Con M) Current Visit Medications: Current Medications Generic Name Dose Route Start Last Admin Trade Name Freq PRN Reason Stop Dose Admin Acidophilus/Pectin 1 cap 02/26/24 08:30 Lactobacillus Acidophilus Cap PO DAILY MERCEDES Albuterol Sulfate 2.5 mg 02/25/24 16:14 Albuterol 2.5 Mg/3 Ml Inh Soln Vial UPD Q2H PRN PRN Atorvastatin Calcium 80 mg 02/26/24 08:30 Atorvastatin 40 Mg Tab PO DAILY MERCEDES Cholecalciferol 1,000 units 02/26/24 08:30 Cholecalciferol (Vitamin D3) 1,000 Unit Tab PO Q48H MERCEDES Docusate Sodium 100 mg 02/25/24 20:00 02/25/24 19:49 Docusate Sodium 100 Mg Cap PO 100 mg BID MERCEDES Administration Enoxaparin Sodium 30 mg 02/25/24 20:00 Enoxaparin 30 Mg/0.3 Ml Syr SC Q24H MERCEDES Ringer's Solution 1,000 mls @ 50 mls/hr 02/25/24 23:59 02/26/24 00:00 IV 50 mls/hr INFUSION MERCEDES Administration Acetaminophen 1,000 mg in 100 mls @ 400 mls/hr 02/25/24 22:00 02/26/24 06:11 Ofirmev IVPB Infused Q8H MERCEDES Infusion IV Miscellaneous Supplies 1 each 02/25/24 16:14 Iv Access IV DIRECTED MERCEDES Melatonin 3 mg 02/25/24 20:00 02/25/24 19:49 Melatonin 3 Mg Tab PO 3 mg HS MERCEDES Administration Patient's Own 4 each 02/25/24 20:00 02/25/24 19:49 Medication ( PO 4 each Lacosamide 50 Mg BID MERCEDES Administration Tablet) Polyethylene Glycol 17 gm 02/25/24 16:14 Polyethylene Glycol 3350 17 Gm Packet PO DAILY PRN PRN Constipation Potassium Chloride 10 meq 02/26/24 08:30 Potassium Chloride 10 Meq Tabcr PO DAILY MERCEDES Sodium Chloride 0 ml 02/25/24 16:14 Normal Saline Flush 10 Ml Syr IVP PRN PRN Sodium Chloride 0 ml 02/25/24 20:00 02/25/24 19:50 Normal Saline Flush 10 Ml Syr IVP 10 ml BID MERCEDES Administration Sodium Chloride 0 ml 02/25/24 16:14 Normal Saline 10 Ml Vial IJ DIRECTED PRN Tamsulosin HCl 0.4 mg 02/25/24 20:00 02/25/24 19:49 Tamsulosin 0.4 Mg Capcr PO 0.4 mg BID MERCEDES Administration PFSH Active Problems Active Problems: Problem Status Onset Code Atherosclerosis of artery I70.90 Abdominal aortic aneurysm (AAA) I71.40 Thoracic aortic aneurysm I71.20 Thoracic aorta atherosclerosis I70.0 Closed left hip fracture S72.002A COVID U07.1 Breakthrough seizure G40.919 Medical History Medical History (Updated 02/26/24 @ 07:15 by Rao Bhandari MD) Closed fracture of left proximal humerus (01/10/23) Seizure in setting of fever and uti CVA (cerebral vascular accident) Lymphoma Prostate cancer Hypertension Surgical History Surgical History History of craniotomy for brain bleed Tobacco Smoking/Tobacco Use Status: Current every day Tobacco Type: cigarettes Smoking packs per day: 1 Alcohol Alcohol Intake: former Substance Use Substance use: Never Substance use type: does not use Vital Signs and Lab Results Vital Signs Most Recent Vital Signs in EMR: Most Recent Vital Signs Temp Pulse Resp BP Pulse Ox 36.6 C 47 L 16 110/56 L 94 02/26/24 07:31 02/26/24 07:31 02/26/24 07:31 02/26/24 07:31 02/26/24 07:31 Point of Care Results Point of Care Results: Finger Stick Blood Glucose 95 02/26/24 06:42 Lab Results 02/26/24 05:46 02/26/24 05:46 Blood Type / Crossmatch: 2 No Data to Display Complete Blood Count: 2 White Blood Count 7.21 10^3/uL (4.4-10.8) 02/26/24 05:46 Red Blood Count 4.19 10^6/uL (4.36-5.78) L 02/26/24 05:46 Hemoglobin 12.8 g/dL (13.5-17.5) L 02/26/24 05:46 Hematocrit 38.5 % (40.0-50.0) L 02/26/24 05:46 Platelet Count 125 10^3/uL (130-400) L 02/26/24 05:46 Venous Blood Lactate 1.0 mmol/L (0.9-1.7) 02/25/24 12:52 Complete Metabolic Panel: 2 Sodium 141 mmol/L (136-145) 02/26/24 05:46 Potassium 3.5 mmol/L (3.5-5.1) 02/26/24 05:46 Chloride 105 mmol/L (98-107) 02/26/24 05:46 Carbon Dioxide 30.0 mmol/L (21.0-32.0) 02/26/24 05:46 BUN 9 mg/dL (7-18) 02/26/24 05:46 Creatinine 0.9 mg/dL (0.70-1.30) 02/26/24 05:46 Est GFR (CKD-EPI 2020) 87.42 (mL/min/1.73m2) 02/26/24 05:46 Magnesium 2.5 mg/dL (1.8-2.4) H 02/26/24 05:46 Calcium 8.9 mg/dL (8.5-10.1) 02/26/24 05:46 Albumin 3.1 g/dL (3.4-5.0) L 02/25/24 12:52 Glucose 87 mg/dL (74-106) 02/26/24 05:46 Liver Function Panel: 2 Alanine Aminotransferase (ALT/SGPT) 24 U/L (16-63) 02/25/24 12: 52 Aspartate Amino Transf (AST/SGOT) 15 U/L (15-37) 02/25/24 12:52 Coagulation Panel: 2 INR International Normalized Ratio 1.1 (0.9-1.1) 02/25/24 12:5 2 Prothrombin Time 11.1 sec (9.1-11.1) 02/25/24 12:52 Activated Partial Thromboplast Time 27.2 sec (23.6-32.8) 12:52 Cardiac Panel: 2 Troponin I < 50 ng/L (< or =60) 02/25/24 Arterial Blood Gas: 2 No Data to Display Venous Blood Gas: 2 No Data to Display Pancreas Panel: 2 No Data to Display Thyroid Panel: 2 Thyroid Stimulating Hormone (TSH) 0.89 uIU/mL (0.36-3.74) 02/24 12:52 Infectious Disease: 2 No Data to Display Blood Cultures: 2 No Data to Display Toxicology Panel: 2 No Data to Display Imaging and Studies Imaging and Studies Study information below may be from another EMR and interpreted by another provider. Please see original notes in EMR for more complete details. EKG Summary: 01/23/23: Exam: Resting ECG Reason for Exam: Post Seizure Patient Location: E HR:48 bpm ECG Measurements Heart Rate 48 AXIS NV 199 P 49 QRSd 155 QRS 59 QT 463 T39 QTc 412 Conclusion Sinus bradycardia...rate< 60 Right bundle branch block...QRSd>120, terminal axis(90,270) Sinus bradycardia rate of 48 with right bundle branch block pattern. NV and QTc within normal limits. No ST segment abnormalities. Appears similar to prior with the exception of new sinus bradycardia. Prior dated last year. I have reviewed and I agree with the emergency room physician's ECG interpretation. [place]ch[place] [place] EF 64%, Mild Anesthesia Assessment and Plan Anesthesia History Personal History: No History of Anesthesia Complications Family History: No Family History of Anesthesia Complications Exercise Tolerance Exercise Tolerance: Unknown Pertinent Negatives Pertinent Negatives: No Symptoms of GERD Cardiac & Pulmonary Exam Cardiac Exam: Normal S1/S2 Heart Sounds (Distant) Pulmonary Exam: Clear Bilateral Breath Sounds Implantable Cardiac Device Does patient have a Pacemaker or an ICD?: No Airway Exam Known Difficult Airway: No Mallampati Class: 2 Mouth Opening: Normal (> 3cm) Thyromental Distance: Greater than 3 cm Neck Range of Motion: Limited ROM (Reports cervical neck discomfort, but able to mobilize) Neck Circumference: Normal Teeth Condition: Generalized Poor Dentition (Missing several teeth) ASA Classification ASA Score: ASA 3 Emergency Case?: Yes NPO Status NPO Status: NPO Clears >2 hours, Solids >8 hours Anesthesia Plan Resuscitation Status: DNR Fully Suspended During Perioperative Period Anesthesia Technique: General Anesthesia Airway Planned: Endotracheal Tube Monitors Used: Standard Monitors and SedLine Preoperative Comments:: 78M with significant smoking history (continues to smoke), with h/o AAA, thoracic aortic aneurysm, HTN, prior ETOH abuse, CVA in 2020 with subsequent bleed and craniotomy, seizure disorder, follicular lymphoma and prostate cancer. Presents with hip fracture requiring surgical fixation. [place] [facility] [place] [facility] and reports verbally that he gets routine surveillance for his AAA and thoracic aneurysm. AAA 5.1cm [place] [facility] [place] Patient does not seek intervention at this time. Discussed the risk factors with patient as well as Dr. Bhandari regarding significant comorbidities. Patient has done well with anesthesia in the recent past [place] [facility] [place] records reviewed.
--- NOTE | 2024-02-26 08:19 | NUR.NOTE ---
Nursing Note: Reviewed meds with anesthesia in patient's room prior to transfer, and morning medications were held as directed. Patient was transferred to Connie RN in preop area 7:43, where report was given at bedside.
[2024-02-26] MEDS: ceFAZolin 2 GM/50 ML BAG 100 GM (08:42)
--- NOTE | 2024-02-26 09:37 | W.ED.PROC ---
Date of service: 02/26/24 Time of Service: 09:38 Procedures Arterial Line Time Out Performed: Yes Size (Gauge): 16 Technique Used: guide wire technique Post-Procedure: line sutured into place and dry sterile dressing placed Patient Tolerated Procedure: well and no complications Complications: none Site: right Additional Comments: A time-out was completed verifying correct patient, procedure, site, positioning, and special equipment if applicable. Pedro Pablo?s test was performed to ensure adequate perfusion. The patient?s right wrist was prepped and draped in sterile fashion. The arterial line was introduced into the radial artery. The catheter was threaded over the guide wire and the needle was removed with appropriate pulsatile blood return. The catheter was then sutured in place to the skin and a sterile dressing applied. Perfusion to the extremity distal to the point of catheter insertion was checked and found to be adequate. Central Line Placement Right IJ: Time Out Performed: Yes Patient Placed on Monitor/Pulse Ox: Yes MD Prep: mask, gown and gloves Central Line Prep: Chlorhexidine scrub Ultrasound Used for Placement: Yes Central Line Lumen Inserted: triple Post Procedure: good blood return, all ports aspirated, flushed, capped and sutured in place with 2-0 silk Post Procedure X-Ray: tip of catheter in good position Patient Tolerated Procedure: well and no complications Complications: none Medical Decision Making I was called to the OR emergently by Dr. Bhandari. Patient had been inducted for anesthesia and had a sudden drop in blood pressure became hypotensive and in shock. I asked how I could be of assistance, and was requested to place definitive access. Right arterial line was placed, right triple-lumen was placed. No complications during these events. Limited bedside echo demonstrated a hyperdynamic heart with what appeared to be good cardiac output, aortic aneurysm appears stable with no free fluid in the abdomen. After definitive access was placed and notable and appropriate medications were given by anesthesia, the patient had a notable improvement and was extubated. Quality:SDOH Health Related Social Needs: No Data to Display
[2024-02-26 09:43] LABS: TCO2 (Venous) 23 mmol/L (24-29); pCO2 (Venous) 56 mmHg (41-51); pH (Venous) 7.26 (7.31-7.41); pO2 (Venous) 142 mmHg
[2024-02-26 09:44] LABS: BE (Venous) -2 mmol/L (-2-3); HCO3 (Venous) 25 mmol/L (23-28); O2 Sat (Venous) 99 %
--- NOTE | 2024-02-26 09:47 | W.PM.OP ---
Date of service: 02/26/24 Time of Service: 08:15 Operative Note Operative Note DATE OF PROCEDURE: 02/26/24 PRE-OP DIAGNOSIS: Left Subcapital Femoral Neck Fracture POST-OP DIAGNOSIS: other (Profound Hypotension) PROCEDURE: ABORTED CASE SURGEON: Rao Bhandari ANESTHESIA TYPE: General LMA/ETT Refer to Anesthesia Record ESTIMATED BLOOD LOSS: 0 Indications: Narcisa is a 78-year-old male who fell onto his left hip. He was able to mobilize briefly but then had continued pain and so presented to the emergency department with pain and difficulty ambulating about the left side. He was diagnosed with a subcapital femoral neck fracture, valgus impacted and relatively minimally displaced. I discussed treatment options with him and he elected to proceed with operative fixation utilizing percutaneous cannulated screws about the left hip. I reviewed the risk to include bleeding, infection, pain, stiffness, damage to nerves vessels, damage to muscle and tendons, malunion, nonunion, hardware prominence, hardware failure, cardiopulmonary demise. Despite these risk, he elects to proceed. Procedure Description: Narcisa was greeted in the preoperative holding area and then brought back to the operating room. He was kept in the supine position on his bed for induction. A general anesthetic was then administered. He was then transferred over to the [place] fracture table. Prophylactic antibiotics in the form of cefazolin 2 g were administered. Shortly thereafter while starting to prep the left leg his blood pressure began to drop precipitously. At this point anesthesia, Marissa Layne CRNA, begin administering norepinephrine followed by epinephrine. There is minimal response initially and therefore a rapid response was initiated with the help of nursing maintenance mechanic supervisor team as well as Dr. Ventura from the emergency department. Arterial line was placed in addition to a triple-lumen central line and multiple peripheral points of access. High-volume fluid boluses were administered along with the vasopressors. Dr. Maloney, hospitalist, was also involved to be made aware for ICU admission and potential workup. Please see other detailed anesthetic notes about the specific medication ministration. However, he did respond eventually not requiring any compressions and not losing his heart rate nor his oxygen saturation. He was extubated and all vasopressors were stopped and he was stable. He was thus transferred to the ICU in guarded condition. Given the drop of blood pressure directly after administration of the cefazolin, a tryptase lab would be sent.
--- NOTE | 2024-02-26 09:59 | PDOC.CMIN ---
Date of service: 02/26/24 Time of Service: 09:59 Care Management Initial Assmt Initial Assessment Reason for Hospitalization: Closed L hip fracture Functional Status/Living Situation Patient Presentation: Narcisa was in the OR this morning; per report, the surgery was not done due to low blood pressure, possibly from an anaphylactic reaction. Per MD, he will be observed over the weekend, and re assessed for surgery on Wednesday. CM attempted to meet with Narcisa jaimes while in the ICU, but he was resting. His RN reported that his and daughter have both been visiting throughout the day; they were not present at that time. CM will continue to follow. Town of Residence: [place] Resides with: Spouse (, Kinue) Significant Other/Family: Local (daughter, Bertha) Employment Status: Retired ([employer]) Instrumental Activities of Daily Living (ADLs): Independent Activities/Hobbies/SocialSupport: gardening Medications Medication Management: No Issues/Barriers identified Advance Directives Advance Directives: Do you have an Advance Directive: N 12/25/20 11:29 AD On File at [facility]: N 01/10/13 07:10 Date Asked 02/25/24 02/25/24 12:48 AD Date Reviewed 02/25/24 02/25/24 16:36 COLST On File at [facility] No 01/10/23 10:37 COLST Date Scanned Code Status Resuscitation Status DNI Insurance Coverage/Financial Issues Insurance: [place] ACO Member: No Care Team Visit Care Team Role Provider Type Elyse Gutierrez Primary Care Provider NON-[facility] STAFF PHYSICIAN InPatient Yahir Daniel Other Providers OTHER Tariq Ventura DO Emergency Provider [facility] STAFF PHYSICIAN Damian Arita Admit Provider [facility] STAFF PHYSICIAN Attending Provider Discharge Potential Discharge Needs: PT Evaluation, PCP F/U Appt and Surgical F/U Appt Anticipated Barriers to Discharge: None Identified Patient/Family Education Needs: Review discharge instructions, discuss Ask Me Three Transportation: Private vehicle Plan: Narcisa was unable to have surgery this morning; he will likely return to the OR on Wednesday, after a period of observation. Anticipate Narcisa will return home once medically cleared. His will drive him home via private vehicle. He will follow up with his PCP and discharge plan of care. CM will continue to follow. PFSH All Active Problems (Updated 02/26/24 @ 12:24 by Damian Arita) Tooth avulsion (Acute) Pyuria (Acute) DVT prophylaxis (Acute) Hypokalemia (Acute) Smoker (Acute) Anaphylactic reaction (Acute) Atherosclerosis of artery (Acute) Abdominal aortic aneurysm (AAA) (Acute) Thoracic aortic aneurysm (Acute) Thoracic aorta atherosclerosis (Acute) Closed left hip fracture (Acute) Medical History (Updated 02/26/24 @ 12:24 by Damian Arita) Seizure disorder as sequela of cerebrovascular accident s/p CVA/hemorrhage, h/o breakthrough in setting of UTI/fever Closed fracture of left proximal humerus (01/10/23) CVA (cerebral vascular accident) Lymphoma Prostate cancer Hypertension Surgical History History of craniotomy for brain bleed Family History Father Personal history of malignant neoplasm prostate cancer Social History Smoking/Tobacco Use Status: Current every day Tobacco Type: cigarettes Smoking packs per day: 1 Smoking cigarettes per day: 20.0 Smoking risk assessment performed?: Yes Alcohol Intake: former Drug use: Never Substance use type: does not use Housing: house Current gender identity: male Do you feel safe at home: Yes Do you feel safe in your relationship?: Yes SDOH(Care Management) Screening Will the Patient Participate in the Screening?: Unable to obtain Do you worry about having a steady place to live?: no Problems where you live: no known problems In the past 12 months, have you had to go without electric, gas, oil or water in your home?: no Have you or anyone in your house had to go without enough food to eat?: no Has lack of transportation kept you from medical appointments or from doing things needed for daily living?: no Has anyone in your support network made you feel unsafe for any reason?: no
--- NOTE | 2024-02-26 10:00 | DI.RAD_ITS ---
Exam(s) XR PORTABLE CHEST AP POST LINE EXAM: XR PORTABLE CHEST AP POST LINE CLINICAL HISTORY: central line placement. TECHNIQUE: 2D digital imaging was performed. COMPARISON: CR XR CHEST 2V PA LATERAL from 02/25/2024 FINDINGS: Single AP portable view. Heart size is upper normal. The mediastinum is not widened. Lungs are clear. No infiltrates nor obvious pleural effusions. Distal tip of the right jugular central line is at the SVC-RA junction. IMPRESSION: No acute pulmonary findings on this single AP portable view of the chest. Right IJ central line distal tip cavoatrial junction DATA REPOSITORY: RADIATION DOSE DELIVERED:
[2024-02-26 10:02] LABS: ALT 14 U/L (16-63); AST 13 U/L (15-37); Albumin 2.2 g/dL (3.4-5.0); Alkaline Phosphatase 76 U/L (46-116); Anion Gap 5.6 mmol/L (3-11); BUN 9 mg/dL (7-18); Bilirubin, Total 0.51 mg/dL (0.2-1.0); CO2 27.4 mmol/L (21.0-32.0); CREATININE 0.9 mg/dL (0.70-1.30); Calcium 7.8 mg/dL (8.5-10.1); Chloride 108 mmol/L (98-107); Estimated GFR 87.42 (mL/min/1.73m2); Glucose 153 mg/dL (74-106); Sodium 141 mmol/L (136-145); Total Protein 4.8 g/dL (6.4-8.2)
[2024-02-26 10:04] LABS: Potassium 2.9 mmol/L (3.5-5.1)
--- NOTE | 2024-02-26 10:30 | DI.RAD_ITS ---
Exam(s) XR ABDOMEN FLAT PLATE EXAM: XR ABDOMEN FLAT PLATE CLINICAL HISTORY: lost tooth. TECHNIQUE: 2D digital imaging was performed. COMPARISON: No exams were available for comparison FINDINGS: Single AP supine view of the abdomen Bowel gas pattern is nonspecific in the supine position. There is calcification in the abdominal aor ta and what appears to be an abdominal aortic aneurysm. Heavy calcification also noted in the iliac arteries indicating atherosclerotic involvement. No radiopaque calculi seen over the kidneys nor along the course of the ureters. There is also no ev idence of radiopaque foreign body, as per request. No evidence of tooth fragment identified in the a bdomen-pelvis. There is a suprapubic catheter evident. Visualized lung bases are clear. IMPRESSION: None specific bowel gas pattern in the supine position. No tooth fragment identified in the abdomen-pelvis DATA REPOSITORY: RADIATION DOSE DELIVERED:
--- NOTE | 2024-02-26 10:52 | DI.RAD_ITS ---
Exam(s) XR HIP LT IN OR EXAM: XR HIP LT IN OR CLINICAL HISTORY: left hip fracture. TECHNIQUE: 2D digital imaging was performed. COMPARISON: CR,XR XR ABDOMEN FLAT PLATE from 02/26/2024 FINDINGS: Fluoroscopy provided during orthopedic procedure for left hip. See procedure report for details. Total fluoroscopy time 9.1 seconds IMPRESSION: Radiation exposure index/cumulative dose: Onesimor= 1.41mGy DATA REPOSITORY: RADIATION DOSE DELIVERED:
--- NOTE | 2024-02-26 11:03 | DI.VRAD_ITS ---
PROCEDURE INFORMATION: Exam: XR Chest Exam date and time: 02/26/2024 10:34 AM Age: 78 years old Clinical indication: Device placement; Other: Central line placement TECHNIQUE: Imaging protocol: Radiologic exam of the chest. Views: 1 view. COMPARISON: CR XR CHEST 2V PA LATERAL 02/25/2024 1:47 PM FINDINGS: Tubes, catheters and devices: Right internal jugular central line with its tip at the cavoatrial junction. Lungs: Bilateral apical fibrotic changes. Hyperinflated emphysematous lungs atelectatic. No consolidation. Pleural spaces: Unremarkable. No pleural effusion. No pneumothorax. Heart/Mediastinum: Unremarkable. No cardiomegaly. Vasculature: Aortic arch calcifications. Bones/joints: Moderate of the right acromioclavicular joint. Mild degenerative of bilateral glenohumeral joints gallstones tiny IMPRESSION: Right internal jugular central line with its tip at the cavoatrial junction. Dictated and Authenticated by: Segundo Centeno MD. Ordering:ESTRELLA Potter MD
--- NOTE | 2024-02-26 11:08 | DI.VRAD_ITS ---
PROCEDURE INFORMATION: Exam: XR Abdomen Exam date and time: 02/26/2024 10:49 AM Age: 78 years old Clinical indication: Other: Broken tooth intraop TECHNIQUE: Imaging protocol: Radiologic exam of the abdomen. Views: Frontal supine view of the abdomen. 1 View. COMPARISON: CT RENAL COLIC WO 12/26/2023 10:50 PM FINDINGS: Gastrointestinal tract: Normal. No bowel dilation. Vasculature: Vascular calcifications with calcified aortic aneurysm. Bones/joints: Degenerative disease of the lumbar spine. No radiopaque foreign body to suggest tooth. IMPRESSION: No tooth fragment is identified in the abdomen or pelvis. Dictated and Authenticated by: Segundo Centeno MD. Ordering:PEDRO Ann MD
[2024-02-26 11:18] LABS: Troponin I < 50 ng/L (< or =60)
--- NOTE | 2024-02-26 11:49 | W.ANESPOSTOP ---
Postoperative Evaluation Date, Time and Location Date Performed: 02/26/24 Time Performed: 11:00 Patient Location: Intensive Care Unit Vital Signs Most Recent Imported Vital Signs: Most Recent Vital Signs Temp Pulse Resp BP Pulse Ox 36.6 C 47 L 17 113/51 L 100 02/26/24 10:07 02/26/24 07:31 02/26/24 10:20 02/26/24 10:07 02/26/24 10:20 Pain Score Most Recent Pain Score: Most Recent Pain Score Pain Level [Left Hip] 0 02/25/24 12:36 Pain Level 0 02/26/24 10:07 Assessment Mental Status: Awake (Alert & Oriented to Patient Baseline) Airway and Respiratory Function: Patent airway with normal (patient baseline) respiratory exam Cardiovascular Function: Hemodynamically Stable Hydration Status: Adequately Hydrated Nausea & Vomiting: No Nausea or Vomiting Pain: Pain is tolerable per patient Peripheral Nerve Block: Patient did not receive a nerve block Postoperative Comments:: Lengthy conversation with the patient, patient's and daughter present in ICU room. Informed of the morning's events and possible anaphylactic reaction, labs have been sent. Plan to monitor in ICU and reassess/discuss plan moving forward with Dr. Bhandari. Patient is able to follow verbal commands, appears neurologically intact. Patient also noted to loose a tooth, atraumatic intubation, but possible extubation or suctioning? CXR and KUB both negative for tooth fragment. Family expalined tooth loss and verbalized they were aware it was extremely loose for the last couple of weeks.
--- NOTE | 2024-02-26 11:54 | W.PM.PROGNOT ---
Date of Service Date of service: 02/26/24 Time of Service: 11:54 Assessment and Plan Assessment and plan (1) Anaphylactic reaction: Status: Acute Assessment and plan: Episode reviewed carefully with Marissa Layne CRNA. Sudden drop in BP occurred immediately after cefazolin infusion, though he has tolerated this in the past. Rocuronium also possible, but this was used in previous case this year. -Received epinephrine/norepi in OR along with methylprednisolone -tryptase pending to help confirm diagnosis -hemodynamically stable since coming to the ICU, continue to monitor closely -allergy testing as outpatient, but plan to avoid cefazolin and rocuronium -EKG not c/w AK, getting troponins to assess for cardiac event, but course not consistent with cardiac event as cause for hypotension -He did get ceftriaxone for possible UTI yesterday, interestingly eosinophils up this morning before event on CBC. (2) Closed left hip fracture: Status: Acute Assessment and plan: Per Thony and Marissa Layne, would not proceed with case until full staff available on Wednesday, but case could get done here. (3) Abdominal aortic aneurysm (AAA): Status: Acute Assessment and plan: Estimated sizes documented going back to 2021 go from 5.0 to 5.1 to 4.6. The most recent imaging we have is the 4.6cm from CT this May here. (4) Seizure disorder as sequela of cerebrovascular accident: Assessment and plan: On lacosamide, continue. (5) Smoker: Status: Acute Assessment and plan: Has been precontemplative, but actually contemplative now. also smokes. Discussed options for help. Declines NRT for now. (6) Hypokalemia: Status: Acute Assessment and plan: replaced this morning. Follow (7) Thoracic aortic aneurysm: Status: Acute Assessment and plan: Diagnosed in 2021 when borderline at 4cm (aneursym typically defined as >4cm). [facility] It would be prudent to repeat echocardiogram before procedure on Wednesday given CV collapse today, would allow us to reassess ascending aorta. (8) DVT prophylaxis: Status: Acute Assessment and plan: LMWH. Hold prior to surgery when this plan is set. (9) Pyuria: Status: Acute Assessment and plan: mild. S/p ceftriaxone x 1. Without focal symptoms treatment not indicated. (10) Tooth avulsion: Status: Acute Assessment and plan: lost during case, has been loose for weeks per family. No evidence that this is in airway on CXR. Subjective Subjective Patient reports: denies nausea, vomiting, shortness of breath or fever Interval history since last seen: Called to OR, patient hypotensive after sedation/induction agents, intubation, and cefazolin. Drop in BP occured immediately after cefazolin infused. See anethesia notes. Case cancelled. Patient extubated and cognitively intact, stabilized hemodynamically since then He denies pain right now at rest. No fever, chest pain, dizziness. He has some urinary hesitancy but never had dysuria or other acute change. Exam Narrative Exam Narrative: GEN: Alert and oriented, pleasant and cooperative, gives linear history. No acute distress at rest lying in bed LUNGS: CTAB with normal effort CV: RRR with no murmurs, gallops, or rubs. ABD: +BS, soft, NT/ND EXT: no cyanosis, clubbing, or edema MSK: left leg shortened and externally rotated PSYCH: normal mood and affect Objective Last Vital Signs Temp 36.6 C 02/26/24 10:07 Pulse 47 L 02/26/24 07:31 Resp 17 02/26/24 10:20 BP 113/51 L 02/26/24 10:07 Pulse Ox 100 02/26/24 10:20 Laboratory Results - last 24 hr 02/25/24 02/25/24 02/25/24 12:52 15:05 15:36 WBC 8.93 RBC 4.25 L Hgb 13.0 L Hct 38.4 L MCV 90 MCH 30.6 MCHC 33.9 RDW 15.1 H Plt Count 142 MPV 9.3 Immature Gran % 0.6 Neutrophils % 82.9 Lymphocytes % 8.0 Monocytes % 7.3 Eosinophils % 1.0 Basophils % 0.2 Nucleated RBC % 0.0 Absolute Neutrophils 7.41 H Absolute Lymphocytes 0.71 L Absolute Monocytes 0.65 Absolute Eosinophils 0.09 Absolute Basophils 0.02 PT 11.1 INR 1.1 APTT 27.2 VBG pH VBG pCO2 VBG pO2 VBG HCO3 VBG Total CO2 VBG O2 Saturation VBG Base Excess VBG Lactate 1.0 Sodium 137 Potassium 3.5 Chloride 102 Carbon Dioxide 28.3 Anion Gap 6.7 BUN 12 Creatinine 1.1 Est GFR (CKD-EPI 2020) 68.71 Glucose 197 H Calcium 8.9 Magnesium 1.3 L Total Bilirubin 0.76 AST 15 ALT 24 Alkaline Phosphatase 102 Troponin I < 50 Total Protein 6.6 Albumin 3.1 L TSH 0.89 Urine Color Yellow Urine Clarity Clear Urine pH 6.0 Ur Specific [place] 1.015 Urine Protein Negative Urine Ketones Negative Urine Blood Trace-intact H Urine Nitrite Negative Urine Bilirubin Negative Urine Urobilinogen 0.2 Ur Leukocyte Esterase Trace H Urine RBC 0-2 Urine WBC 5-10 Ur Epithelial Cells Rare Urine Crystals Negative Urine Bacteria Rare Urine Casts Negative Urine Mucus Negative Urine Other Rare Transitional Ur Culture Indicated? C&S Done As Ordered Urine Glucose Negative 02/26/24 02/26/24 02/26/24 05:46 09:34 09:35 WBC 7.21 RBC 4.19 L Hgb 12.8 L Hct 38.5 L MCV 92 MCH 30.5 MCHC 33.2 RDW 14.8 H Plt Count 125 L MPV 9.1 Immature Gran % 0.8 Neutrophils % 72.8 Lymphocytes % 12.8 Monocytes % 7.9 Eosinophils % 5.1 Basophils % 0.6 Nucleated RBC % 0.0 Absolute Neutrophils 5.25 Absolute Lymphocytes 0.92 L Absolute Monocytes 0.57 Absolute Eosinophils 0.37 Absolute Basophils 0.04 PT INR APTT VBG pH 7.26 L VBG pCO2 56 H VBG pO2 142 VBG HCO3 25 VBG Total CO2 23 L VBG O2 Saturation 99 VBG Base Excess -2 VBG Lactate Sodium 141 141 Potassium 3.5 2.9 L* Chloride 105 108 H Carbon Dioxide 30.0 27.4 Anion Gap 6.0 5.6 BUN 9 9 Creatinine 0.9 0.9 Est GFR (CKD-EPI 2020) 87.42 87.42 Glucose 87 153 H Calcium 8.9 7.8 L Magnesium 2.5 H Total Bilirubin 0.51 AST 13 L ALT 14 L Alkaline Phosphatase 76 Troponin I < 50 Total Protein 4.8 L Albumin 2.2 L TSH Urine Color Urine Clarity Urine pH Ur Specific [place] Urine Protein Urine Ketones Urine Blood Urine Nitrite Urine Bilirubin Urine Urobilinogen Ur Leukocyte Esterase Urine RBC Urine WBC Ur Epithelial Cells Urine Crystals Urine Bacteria Urine Casts Urine Mucus Urine Other Ur Culture Indicated? Urine Glucose Time Spent with Patient Time Spent with Patient: >50 minutes Time was spent: preparing to see the patient(eg.review tests), obtaining and/or reviewing separately otained hiistory, ordering medications,tests, procedures, referring, communicating with other health child daycare worker, indepentently interpreting results, counseling the patient and care coordination
[2024-02-26] MEDS: POTASSIUM CHLORIDE 20 MEQ/100 ML BAG 50 MEQ IVINF ×2 (12:06→12:59)
[2024-02-26 13:45] LABS: Absolute Basophil Count 0.03 10^3/uL (0.0-0.2); Absolute Eosinophil Count 0.04 10^3/uL (0.0-0.7); Absolute Lymphocyte Count 0.46 10^3/uL (1.2-3.4); Absolute Monocyte Count 0.54 10^3/uL (0.1-0.8); Basophils % 0.2 %; Eosinophils % 0.3 %; HCT 38.2 % (40.0-50.0); HGB 12.7 g/dL (13.5-17.5); Immature Grans % 0.8 %; Lymphocytes % 3.5 %; MCH 30.4 pg (27.0-33.0); MCHC 33.2 % (32.0-36.0); MCV 91 fL (80-95); MPV 9.2 fL (8.0-11.0); Monocytes % 4.1 %; Neutrophils % 91.1 %; Platelet Count 133 10^3/uL (130-400); RBC 4.18 10^6/uL (4.36-5.78); RDW 14.6 % (11.8-14.1); RDW-SD 49.2 fL; WBC 13.08 10^3/uL (4.4-10.8)
[2024-02-26 13:46] LABS: Absolute Neutrophil Count 11.92 10^3/uL (1.2-6.7)
[2024-02-26 14:02] LABS: Troponin I < 50 ng/L (< or =60)
[2024-02-26] MEDS: Tamsulosin 0.4 MG CAPCR PO (20:21)
[2024-02-26] MEDS: Docusate Sodium 100 MG CAP PO (20:21)
[2024-02-26] MEDS: Melatonin 3 MG TAB PO (20:21)
[2024-02-26] MEDS: Normal Saline Flush 10 ML SYR IVP ×2 (20:22→23:27)
[2024-02-27] VITALS (61 sets, daily range): BP systolic 110–140; BP diastolic 58–84; PULSE 39–67; RESP 12–27; TEMP 36.1–36.9; O2SAT 90–96
--- NOTE | 2024-02-27 01:05 | NUR.NOTE ---
Nursing Note:Patient rang call mccracken and thought the light from the SpO2 sensor a lit cigarette, A&O x 3, will spot check SpO2 to prevent reoccurrence.
[2024-02-27] MEDS: Normal Saline 500 ML 50 ML IV (02:54)
[2024-02-27] MEDS: ACETAMINOPHEN 1,000 MG/100 ML BTL 400 MG IVPB ×3 (05:15→21:57)
[2024-02-27 05:57] LABS: Abs Immature Grans 0.05 10^3/uL (0.0-0.06); Absolute Basophil Count 0.02 10^3/uL (0.0-0.2); Absolute Eosinophil Count 0.28 10^3/uL (0.0-0.7); Absolute Lymphocyte Count 1.14 10^3/uL (1.2-3.4); Basophils % 0.3 %; Eosinophils % 3.9 %; HCT 32.2 % (40.0-50.0); HGB 10.7 g/dL (13.5-17.5); Immature Grans % 0.7 %; Lymphocytes % 16.1 %; MCH 30.5 pg (27.0-33.0); MCHC 33.2 % (32.0-36.0); MCV 92 fL (80-95); MPV 9.1 fL (8.0-11.0); Monocytes % 7.1 %; Neutrophils % 71.9 %; Platelet Count 115 10^3/uL (130-400); RBC 3.51 10^6/uL (4.36-5.78); RDW 14.6 % (11.8-14.1); RDW-SD 49.5 fL; WBC 7.09 10^3/uL (4.4-10.8)
[2024-02-27 06:06] LABS: Anion Gap 9.3 mmol/L (3-11); BUN 11 mg/dL (7-18); CO2 24.7 mmol/L (21.0-32.0); CREATININE 0.8 mg/dL (0.70-1.30); Calcium 8.2 mg/dL (8.5-10.1); Chloride 107 mmol/L (98-107); Estimated GFR 90.58 (mL/min/1.73m2); Glucose 92 mg/dL (74-106); Potassium 3.4 mmol/L (3.5-5.1); Sodium 141 mmol/L (136-145)
[2024-02-27] MEDS: Docusate Sodium 100 MG CAP PO ×2 (08:23→20:44)
[2024-02-27] MEDS: Potassium Chloride 10 MEQ TABCR PO (08:23)
[2024-02-27] MEDS: Lactobacillus Acidophilus CAP 1 CAP PO (08:26)
[2024-02-27] MEDS: Normal Saline Flush 10 ML SYR IVP ×3 (08:31→19:38)
--- NOTE | 2024-02-27 09:53 | W.PM.PROGNOT ---
Date of Service Date of service: 02/27/24 Time of Service: 09:54 Assessment and Plan Assessment and plan (1) Anaphylactic reaction: Status: Acute Assessment and plan: Sudden drop in BP occurred immediately after cefazolin infusion, though he has tolerated this in the past. Rocuronium also possible trigger. -Received epinephrine/norepi in OR along with methylprednisolone -tryptase pending to help confirm diagnosis -allergy testing as outpatient, but plan to avoid cefazolin and rocuronium -EKG and troponins x 2 not c/w cardiac ischemia around the hypotension, which is reassuring given clear stress on the heart. -hemodynamically stable since coming from the OR, overnight. Plan on echo in AM as below. -Okay to go to floor status at this point (2) Closed left hip fracture: Status: Acute Assessment and plan: Per Danette Layne, plan to proceed 02/27 when full staff available. (3) Abdominal aortic aneurysm (AAA): Status: Acute Assessment and plan: Estimated sizes documented going back to 2021 go from 5.0 to 5.1 to 4.6. The most recent imaging we have is the 4.6cm from CT this May here. Qualifiers: Presence of rupture: without rupture (4) Seizure disorder as sequela of cerebrovascular accident: Assessment and plan: On lacosamide, continue. No seizure-like events (5) Smoker: Status: Acute Assessment and plan: Has been precontemplative, but actually contemplative now. also smokes. Continued to discuss. Declining NRT for now. (6) Hypokalemia: Status: Acute Assessment and plan: replaced this morning. Follow (7) Thoracic aortic aneurysm: Status: Acute Assessment and plan: Diagnosed in 2021 when borderline at 4cm (aneursym typically defined as >4cm). [facility] Plan to repeat echocardiogram before procedure on Wednesday given CV collapse today, would allow us to reassess ascending aorta. Qualifiers: Thoracic aorta location: ascending aorta Presence of rupture: without rupture Qualified Code(s): I71.21 - Aneurysm of the ascending aorta, without rupture (8) DVT prophylaxis: Status: Acute Assessment and plan: LMWH. Hold prior to surgery when this plan is set. (9) Pyuria: Status: Acute Assessment and plan: mild. S/p ceftriaxone x 1. Without focal symptoms treatment not indicated, culture negative anyways. Subjective Subjective Patient reports: denies tolerating a regular diet, nausea, vomiting, shortness of breath or fever Interval history since last seen: He feels okay this morning. No chest pain, no dizziness, no abdominal pain. He feels a little bit down. Exam Narrative Exam Narrative: GEN: Alert and oriented, pleasant and cooperative, gives linear history. No acute distress at rest lying in bed LUNGS: CTAB with normal effort CV: RRR with no murmurs, gallops, or rubs. ABD: +BS, soft, NT/ND EXT: no cyanosis, clubbing, or edema MSK: left leg shortened and externally rotated PSYCH: mood mildly depressed, normal thought process, content Objective Last Vital Signs Temp 36.2 C L 02/27/24 06:00 Pulse 52 L 02/27/24 00:00 Resp 16 02/27/24 06:10 BP 136/58 L 02/26/24 13:38 Pulse Ox 93 02/27/24 06:00 Laboratory Results - last 24 hr 02/26/24 02/26/24 02/27/24 09:35 13:30 05:40 WBC 13.08 H 7.09 RBC 4.18 L 3.51 L Hgb 12.7 L 10.7 L D Hct 38.2 L 32.2 L MCV 91 92 MCH 30.4 30.5 MCHC 33.2 33.2 RDW 14.6 H 14.6 H Plt Count 133 115 L MPV 9.2 9.1 Immature Gran % 0.8 0.7 Neutrophils % 91.1 71.9 Lymphocytes % 3.5 16.1 Monocytes % 4.1 7.1 Eosinophils % 0.3 3.9 Basophils % 0.2 0.3 Nucleated RBC % 0.0 0.0 Absolute Neutrophils 11.92 H 5.10 Absolute Lymphocytes 0.46 L 1.14 L Absolute Monocytes 0.54 0.50 Absolute Eosinophils 0.04 0.28 Absolute Basophils 0.03 0.02 Sodium 141 141 Potassium 2.9 L* 3.4 L Chloride 108 H 107 Carbon Dioxide 27.4 24.7 Anion Gap 5.6 9.3 BUN 9 11 Creatinine 0.9 0.8 Est GFR (CKD-EPI 2020) 87.42 90.58 Glucose 153 H 92 Calcium 7.8 L 8.2 L Total Bilirubin 0.51 AST 13 L ALT 14 L Alkaline Phosphatase 76 Troponin I < 50 < 50 Total Protein 4.8 L Albumin 2.2 L Objective Narrative Objective Narrative: CXR: Right IJ central line distal tip cavoatrial junction. Right IJ central line distal tip cavoatrial junction ABD: None specific bowel gas pattern in the supine position. No tooth fragment identified in the abdomen-pelvis Time Spent with Patient Time Spent with Patient: 35-49 minutes Time was spent: preparing to see the patient(eg.review tests), obtaining and/or reviewing separately otained hiistory, ordering medications,tests, procedures, referring, communicating with other health care management specialist, indepentently interpreting results, counseling the patient and care coordination
[2024-02-27] MEDS: Tamsulosin 0.4 MG CAPCR PO ×2 (09:58→20:43)
--- NOTE | 2024-02-27 13:50 | W.PM.PROGNOT ---
Date of Service Date of service: 02/27/24 Time of Service: 13:52 Assessment and Plan Assessment and plan (1) Closed left hip fracture: Status: Acute Assessment and plan: Narcisa is a 78-year-old who has a known hip fracture on the left side. Unfortunately his surgery was aborted due to significant profound hypotension which is likely related to anaphylactic reaction to Ancef. He is otherwise showed no other lingering symptoms. He is recovered fully. The medicine team is managing but at this point sees no contraindication for proceeding with surgery would like to obtain an echocardiogram in the morning. I did spend some time discussing this with avinash and his daughter. There are some real concerns and there is good reason to be nervous but we have excellent evidence about what the best next step is and there does not appear to be any significant pathology of the heart or lung which was to play. We will avoid the Ancef. Will also likely use a more straightforward propofol only anesthetic. I reviewed all this with him once again. I discussed the surgery. We will proceed with surgery tomorrow during lunch. Subjective Subjective Interval history since last seen: Narcisa denies any acute issues. He is somewhat frustrated by the process. He is confused about the medications but understands what happened. He has been stable. He is required no pressors. He is not requiring a breathing support. Exam Narrative Exam Narrative: Sitting up in the hospital bed. No acute distress. Alert and orient x 3. Left lower extremity slightly externally rotated. No other deformity. He is moving his foot and toes without difficulty. Palpable DP and PT pulse. Objective Last Vital Signs Temp 36.2 C L 02/27/24 06:00 Pulse 56 L 02/27/24 10:08 Resp 22 02/27/24 10:08 BP 136/58 L 02/26/24 13:38 Pulse Ox 92 02/27/24 10:08 Laboratory Results - last 24 hr 02/26/24 02/27/24 13:30 05:40 WBC 7.09 RBC 3.51 L Hgb 10.7 L D Hct 32.2 L MCV 92 MCH 30.5 MCHC 33.2 RDW 14.6 H Plt Count 115 L MPV 9.1 Immature Gran % 0.7 Neutrophils % 71.9 Lymphocytes % 16.1 Monocytes % 7.1 Eosinophils % 3.9 Basophils % 0.3 Nucleated RBC % 0.0 Absolute Neutrophils 5.10 Absolute Lymphocytes 1.14 L Absolute Monocytes 0.50 Absolute Eosinophils 0.28 Absolute Basophils 0.02 Sodium 141 Potassium 3.4 L Chloride 107 Carbon Dioxide 24.7 Anion Gap 9.3 BUN 11 Creatinine 0.8 Est GFR (CKD-EPI 2020) 90.58 Glucose 92 Calcium 8.2 L Troponin I < 50 Time Spent with Patient Time Spent with Patient: <25 minutes Time was spent: preparing to see the patient(eg.review tests), obtaining and/or reviewing separately otained hiistory, indepentently interpreting results and counseling the patient
[2024-02-27] MEDS: Melatonin 3 MG TAB PO (20:44)
[2024-02-28] VITALS (49 sets, daily range): BP systolic 113–200; BP diastolic 61–95; PULSE 37–93; RESP 12–26; TEMP 36.1–37.7; O2SAT 91–100; BMI 17.7
--- NOTE | 2024-02-28 05:00 | DI.US_ITS ---
APPROVED REPORT EXAM: Comprehensive 2D, Doppler, and color-flow Echocardiogram Patient Location: In-Patient Room/Bed: DCJ056 Install And Repair Technician: Apryl Rae RDCS (AE) Indications: Hypotension, Ascending aortic aneurysm, pre operative exam Other Information Study Quality: Adequate. Technically limited study due to body habitus, inability to position patient exam done supine bedside, unable to compress patient had pain. Conclusion Normal left ventricular wall thickness and chamber size. Ejection fraction is 60%. Wall motion is n ormal Normal right ventricular size and function Both atria are normal in size Aortic valve is calcified. There is mild aortic stenosis with a mean gradient of 10 mmHg. There is trace aortic regurgitation Mild mitral annular calcification. Mild mitral regurgitation Estimated right ventricular systolic pressure is 38 mmHg Wall motion Left Ventricle The left ventricle is normal size. The left ventricular systolic function is normal. The left ventric ular ejection fraction is within the normal range. There is normal left ventricular wall thickness. T here is normal LV segmental wall motion. There is no ventricular septal defect visualized. LVEF is 60 %. Right Ventricle Right ventricle is mildly dilated. Right ventricular systolic function is grossly normal. Atria The left atrium size is normal. The right atrium size is normal. The interatrial septum is intact wit h no evidence for an atrial septal defect. Aortic Valve Aortic valve is calcified. Mean gradient is 10 mmHg, mild aortic stenosis Trace aortic regurgitation. Mitral Valve Mild mitral annular calcification. No evidence of mitral valve stenosis. Mild mitral regurgitation. Tricuspid Valve The tricuspid valve is normal in structure. There is no tricuspid valve stenosis. Mild tricuspid regu rgitation. Pulmonic Valve Pulmonic valve is not well visualized. There is no pulmonic valvular stenosis. There is no pulmonic v alvular regurgitation. Great Vessels The aortic root is normal in size. Ascending aorta is not well visualized. The IVC was not visualized . Technically limited subcostal imaging. Pericardium Technically limited subcostal imaigng. 2D Dimensions IVSD d PLAX 0.80 cm M: 0.6-1.2 Ao Root d 3.63 cm M: 3.1 - 3.7 LVPW d PLAX 0.83 cm M: 0.6 - 1.2 LVID d PLAX 4.67 cm M: 4.2 - 5.8 LVDs 3.14 cm M: 2.5 - 4.0 LV EF Teichholz 61.3 % FS 32.85 % LV EDV (Teich) 100.9 mL LV ESV (Teich) 39.0 mL M-Mode TAPSE 3.08 cm (M/F) >1.7 Auto EF LV EDV A4C 96.4 mL LV EDV A2C 94.2 mL LV EDV BP 93.5 mL LV ESV A4C 38.8 mL LV ESV A2C 38.9 mL LV ESV BP 39.4 mL LVEF(%) A4C 59.8 % LVEF(%) A2C 58.7 % LVEF(%) BP 57.9 % LV SV A4C 57.6 ml LV SV A2C 55.3 ml LV SV BP 54.1 ml LV CO A4C 2.2 L/min LV CO A2C 2.2 L/min LV CO BP 2.2 L/min HR A4C 38.18 BPM HR A2C 39.26 BPM LV EDV Index (BP) RV Strain Global Peak Long. Strain A4C 23.02 Global Peak Long. Strain A4C FW 28.61 LA Volume LA Length A4C 4.8 cm LA Length A2C 4.8 cm LA Area A4C s 18.05 cm2 LA Area A2C s 15.75 cm2 LA Vol A4C A-L 57.51 mL LA Vol A2C A-L 43.54 mL LA Vol Biplane A-L 50.2 mL LA Vol/BSA A4C A-L LA Vol/BSA A2C A-L LA Vol/BSA BP A-L 29.2 mL/m2 LA Vol A4C MOD 50.7 mL LA Vol A2C MOD 40.9 mL LA Vol BP MOD 45.6 mL RA Volume RA Area A4C 16.8 cm2 RA ESV A4C (A-L) 52.8mL RA Vol/BSA A4C A-L RA Length A4C 4.6 cm RA ESV A4C (MOD) 48.7mL LV Diastology MV E' medial 0.079 (>0.07 m/s) MV E Vmax 0.98 (0.4-1.3 m/s) MV E/E' MED 12.46 (<14) MV A Vmax 0.95 (0.4-1.3 m/s) E/A Ratio 1.0 Aortic Valve AoV Vmax 2.09 m/s LVOT Vmax 0.91 m/s AoV Peak Grad 17.5 mmHg LVOT Peak Grad 3.3 mmHg AoV Area (Vmax) 1.56 cm2 LVOT VTI 0.285 m AoV VTI 0.587 m LVOT Mean Grad 2.1 mmHg AoV Mean Sigifredo. 1.56 m/s LVOT SV 102.68 mL AoV Mean Grad 10.9 mmHg LVOT Diam s 2.10 cm AoV Area (VTI) 1.75 cm2 Velocity Ratio 0.44 Mitral Valve MV DT 256 (160-240 msec) MV Vmax TIPS 1.01 m/s MV Mean Grad 0.8 (<2mmHg) MV Area PHT 3.11 cm2 MV VTI 0.418 m Tricuspid Valve TV S' 0.15 m/s TR Vmax 3.11 m/s TR Peak Grad 38.6 mmHg
[2024-02-28] MEDS: Normal Saline Flush 10 ML SYR IVP ×3 (05:35→20:26)
[2024-02-28] MEDS: Normal Saline 500 ML 30 ML IV (05:36)
[2024-02-28] MEDS: ACETAMINOPHEN 1,000 MG/100 ML BTL 400 MG IVPB (05:36)
[2024-02-28 06:16] LABS: HCT 34.5 % (40.0-50.0); HGB 11.3 g/dL (13.5-17.5); MCH 30.1 pg (27.0-33.0); MCHC 32.8 % (32.0-36.0); MCV 92 fL (80-95); MPV 9.5 fL (8.0-11.0); Platelet Count 128 10^3/uL (130-400); RBC 3.76 10^6/uL (4.36-5.78); RDW 14.6 % (11.8-14.1); RDW-SD 49.5 fL; WBC 7.49 10^3/uL (4.4-10.8)
[2024-02-28 07:38] LABS: Anion Gap 6.4 mmol/L (3-11); BUN 11 mg/dL (7-18); CO2 27.6 mmol/L (21.0-32.0); CREATININE 0.8 mg/dL (0.70-1.30); Calcium 8.5 mg/dL (8.5-10.1); Chloride 107 mmol/L (98-107); Estimated GFR 90.58 (mL/min/1.73m2); Glucose 88 mg/dL (74-106); Potassium 3.7 mmol/L (3.5-5.1); Sodium 141 mmol/L (136-145)
[2024-02-28 07:39] LABS: Magnesium 1.6 mg/dL (1.8-2.4)
--- NOTE | 2024-02-28 08:07 | PT.INNT ---
PT Notes Visit Reasons: Left Hip Fracture Surgery today at noon. Will await new referral for PT for post-op rehab.
--- NOTE | 2024-02-28 08:30 | RT.EKG_ITS ---
APPROVED REPORT Exam: Resting ECG Reason for Exam: bradycardia Patient Location: I HR:42 bpm ECG Measurements Heart Rate 42 AXIS WA 171 P -42 QRSd 149 QRS 66 QT 493 T 56 QTc 412 Conclusion Sinus bradycardia...rate< 50 Right bundle branch block...QRSd>120, terminal axis(90,270)
[2024-02-28] MEDS: MAGNESIUM SULFATE 2 GM/50 ML BAG IVINF (09:20)
--- NOTE | 2024-02-28 09:30 | PDOC.CMPRO ---
Date of service: 02/28/24 Time of Service: 09:30 Care Management Progress Note Progress Note Text Progress Note Text: Narcisa was sitting up in bed when CM met with him. He had just returned from the OR a short time before where he had his hip fracture repaired. When asked how he was feeling, Narcisa answered confused. He stated that he did not know where he was or what is going on. CM explained that he was in [facility] because he broke his hip. He did not seem to have any recollection of the events that preceded his hospitalization. CM met with Narcisa's Darrel and daughter Bertha to obtain more information. They shared that since his stroke 5 years ago, Narcisa has pretty much needed total care. While he is capable of ambulation, they stated that Narcisa does not get out of bed. He requires assistance with bathing/showering, dressing and toileting. He is frequently irritable and impatient with family. Darrel provides all of Narcisa's care at this time. During discussions about discharge planning, both Bertha and Darrel agreed that Narcisa would need to go to a SNF for short term rehab, prior to returning home. Discharge Potential Discharge Needs: PCP F/U Appt and Surgical F/U Appt Anticipated Barriers to Discharge: None Identified Patient/Family Education Needs: Review discharge instructions, discuss Ask Me Three Transportation: Private vehicle Plan: Anticipate Narcisa will transfer to a SNF for short term rehab prior to returning return home once medically cleared. Transportation will be determined by disposition. Narcisa will follow up with the facility providers, his orthopedic surgeon and plan of care. CM will continue to follow and support discharge planning needs. SDOH(Care Management) Screening Will the Patient Participate in the Screening?: Unable to obtain Do you worry about having a steady place to live?: no Problems where you live: no known problems In the past 12 months, have you had to go without electric, gas, oil or water in your home?: no Have you or anyone in your house had to go without enough food to eat?: no Has lack of transportation kept you from medical appointments or from doing things needed for daily living?: no Has anyone in your support network made you feel unsafe for any reason?: no
[2024-02-28] MEDS: Potassium Chloride 10 MEQ TABCR PO (09:32)
--- NOTE | 2024-02-28 09:35 | PGE_ITS ---
Date of Service Date of service: 02/28/24 Time of Service: 09:35 Assessment and Plan Assessment and plan (1) Anaphylactic reaction: Status: Acute Assessment and plan: Sudden drop in BP occurred immediately after cefazolin infusion, though he has tolerated this in the past. Rocuronium also possible trigger. -Received epinephrine/norepi in OR along with methylprednisolone -tryptase pending to help confirm diagnosis -allergy testing as outpatient, but plan to avoid cefazolin and rocuronium -EKG and troponins x 2 not c/w cardiac ischemia around the hypotension, which is reassuring given clear stress on the heart. Patient has remained hemodynamically stable. Bradycardia is sinus bradycardia and likely d/t his Vimpat for his seizures. Qualifiers: Encounter type: initial encounter Qualified Code(s): T78.2XXA - Anaphylactic shock, unspecified, initial encounter (2) Closed left hip fracture: Status: Acute Assessment and plan: proceed w/ surgical repair later today as planned. Echo was done and shows normal LV and RV systolic function w/ mild and mild MR but no significant pulmonary hypertension (RVSP estimated at 38 mm). Qualifiers: Encounter type: initial encounter Qualified Code(s): S72.002A - Fracture of unspecified part of neck of left femur, initial encounter for closed fracture (3) Abdominal aortic aneurysm (AAA): Status: Acute Assessment and plan: Estimated sizes documented going back to 2021 go from 5.0 to 5.1 to 4.6. The most recent imaging we have is the 4.6cm from CT this May here. Qualifiers: Presence of rupture: without rupture Abdominal aorta location: infrar enal aorta Qualified Code(s): I71.43 - Infrarenal abdominal aortic aneurysm, without rupture (4) Seizure disorder as sequela of cerebrovascular accident: Assessment and plan: On lacosamide, continue. No seizure-like events (5) Smoker: Status: Acute Assessment and plan: currently denies nicotine replacement therapy. Dr. Arita has discussed with him regarding need to quit. Patient apparently is contemplating this. (6) Hypokalemia: Status: Acute Assessment and plan: K up to 3.7 from admission level of 2.9 and 3.4 yesterday. continue to monitor and replace. Mg is down today at 1.6 and being repleted. (7) Thoracic aortic aneurysm: Status: Acute Assessment and plan: Diagnosed in 2021 when borderline at 4cm (aneursym typically defined as >4cm). [facility] may be [facility]. Aortic root was reported as normal size on his echo. He has mild and trace of AI but normal LV function. Qualifiers: Thoracic aorta location: ascending aorta Presence of rupture: without rupture Qualified Code(s): I71.21 - Aneurysm of the ascending aorta, without rupture (8) DVT prophylaxis: Status: Acute Assessment and plan: LMWH. Hold prior to surgery when this plan is set. (9) Pyuria: Status: Acute Assessment and plan: mild. S/p ceftriaxone x 1. Negative urine cultures. In light of his reaction while Ancef was infusing I would avoid cephalosporins until further allergy testing. No evidence for UTI Subjective Subjective Interval history since last seen: Narcisa is concerned about his surgery. He had complications when he went to the OR on 02/25 in which he developed severe hypotension necessitating N.E. Patient currently is feeling fine. He even denies any hip pain at the present. He denies any dyspnea or CP. There was some question of his cognition this morning however, he is oriented to person/place/time/circumstances. He is able to tell me his doctor's names and his meds. I explained to him that the OR staff felt that he had an allergic reaction to either the cefazolin or the rocuronium given perioperatively. The plan is for anesthesia to use propofol for induction. Exam Narrative Exam Narrative: Narcisa is sitting up in bed, talking w/ his nurse, alert and oriented Lungs: clear anteriorly Heart: bradycardic but regular, soft systolic mumur over apex, no thrill or gallop Abdomen: soft, nontender, nondistended Extremities: hips nontender to palpation, popliteal pulses intact, both feet/ankles were bandaged and therefore I could assess pedal pulses, but capillary refill is acceptable Objective Last Vital Signs Temp 37.3 C 02/28/24 07:25 Pulse 40 L 02/28/24 07:29 Resp 22 02/28/24 07:29 BP 149/64 H 02/28/24 07:29 Pulse Ox 93 02/28/24 07:29 Laboratory Results - last 24 hr 02/28/24 05:45 WBC 7.49 RBC 3.76 L Hgb 11.3 L Hct 34.5 L MCV 92 MCH 30.1 MCHC 32.8 RDW 14.6 H Plt Count 128 L MPV 9.5 Sodium 141 Potassium 3.7 Chloride 107 Carbon Dioxide 27.6 Anion Gap 6.4 BUN 11 Creatinine 0.8 Est GFR (CKD-EPI 2020) 90.58 Glucose 88 Calcium 8.5 Magnesium 1.6 L Time Spent with Patient Time Spent with Patient: >50 minutes Time was spent: preparing to see the patient(eg.review tests), obtaining and/or reviewing separately otained hiistory, ordering medications,tests, procedures, referring, communicating with other health child caregiver (Dr. Bhandari, Dr. Arita, [facility], nursing), indepentently interpreting results, counseling the patient and care coordination
[2024-02-28] MEDS: Tamsulosin 0.4 MG CAPCR PO ×2 (09:39→20:26)
--- NOTE | 2024-02-28 10:12 | ANES.PREOP_ITS ---
General Info Date of Service Date Performed: 02/28/24 Height: 5 ft 10 in Weight: 56.2 kg Body Mass Index (BMI): 17.7 Surgical Procedure: Operation Date: 02/26/24 08:00 Proposed Procedure Side Surgeon p Hip Cannulated Fx Left Rao Bhandari MD Actual Procedure Side Surgeon p CANNULATED HIP Left Rao Bhandari MD Pre-Op Diagnosis Post-Op Diagnosis LEFT HIP FRACTURE LEFT HIP FRACTURE Operation Date: 02/28/24 12:10 Proposed Procedure Side Surgeon p Hip Cannulated Fx Left Rao Bhandari MD Meds Allergies and Home Medications Allergies Allergy/AdvReac Type Severity Reaction Status Date / Time cefazolin Allergy Severe Anaphylaxis Verified 02/26/24 11:54 Iodinated Contrast Media Allergy Skin Rash Verified 02/25/24 12:33 Home Medication Medication Instructions Recorded atorvastatin 80 mg tablet 80 mg PO DAILY 01/05/21 cholecalciferol (vitamin D3) 25 25 mcg PO .qod 01/05/21 mcg (1,000 unit) tablet (Vitamin D3) lacosamide 100 mg tablet 200 mg PO BID 01/05/21 tamsulosin 0.4 mg capsule 0.4 mg PO BID 01/05/21 lactobacillus combo #5 150 mg (2 1 mg PO DAILY 12/12/21 billion cell) tablet,delayed release melatonin 3 mg tablet 3 mg PO HS 12/12/21 Bacillus coagulans-inulin 1 1 cap PO DAILY 01/23/23 billion cell-250 mg capsule midazolam 5 mg/spray (0.1 mL) 1 spray intranasal ONCE 01/23/23 nasal spray potassium chloride 10 mEq 10 meq PO DAILY 02/25/24 tablet,extended release(part/cryst) (Klor-Con M) Current Visit Medications: Current Medications Generic Name Dose Route Start Last Admin Trade Name Freq PRN Reason Stop Dose Admin Acidophilus/Pectin 1 cap 02/26/24 08:30 02/28/24 09:15 Lactobacillus Acidophilus Cap PO Not Given DAILY MERCEDES Albuterol Sulfate 2.5 mg 02/25/24 16:14 Albuterol 2.5 Mg/3 Ml Inh Soln Vial UPD Q2H PRN PRN Atorvastatin Calcium 80 mg 02/26/24 08:30 02/28/24 09:15 Atorvastatin 40 Mg Tab PO Not Given DAILY MERCEDES Cholecalciferol 1,000 units 02/26/24 08:30 02/28/24 09:15 Cholecalciferol (Vitamin D3) 1,000 Unit Tab PO Not Given Q48H MERCEDES Docusate Sodium 100 mg 02/25/24 20:00 02/28/24 09:15 Docusate Sodium 100 Mg Cap PO Not Given BID MERCEDES Enoxaparin Sodium 30 mg 02/25/24 20:00 Enoxaparin 30 Mg/0.3 Ml Syr SC Q24H MERCEDES Acetaminophen 1,000 mg in 100 mls @ 400 mls/hr 02/25/24 22:00 02/28/24 05:51 Ofirmev IVPB Infused Q8H MERCEDES Infusion Sodium Chloride 500 mls @ 0 mls/hr 02/28/24 05:30 Saline 500ml Bag IV PRN PRN As Directed Magnesium Sulfate 2 gm in 50 mls @ 25 mls/hr 02/28/24 08:32 02/28/24 09:20 IVINF 02/28/24 10:31 25 mls/hr NOW ONE Administration IV Miscellaneous Supplies 1 each 02/25/24 16:14 Iv Access IV DIRECTED MERCEDES Melatonin 3 mg 02/25/24 20:00 02/27/24 20:44 Melatonin 3 Mg Tab PO 3 mg HS MERCEDES Administration Patient's Own 4 each 02/25/24 20:00 02/28/24 09:10 Medication ( PO 4 each Lacosamide 50 Mg BID MERCEDES Administration Tablet) Polyethylene Glycol 17 gm 02/25/24 16:14 Polyethylene Glycol 3350 17 Gm Packet PO DAILY PRN PRN Constipation Potassium Chloride 10 meq 02/26/24 08:30 02/28/24 09:32 Potassium Chloride 10 Meq Tabcr PO 10 meq DAILY MERCEDES Administration Sodium Chloride 0 ml 02/25/24 16:14 02/28/24 05:35 Normal Saline Flush 10 Ml Syr IVP 80 ml PRN PRN Administration Sodium Chloride 0 ml 02/25/24 20:00 02/28/24 09:17 Normal Saline Flush 10 Ml Syr IVP 10 ml BID MERCEDES Administration Sodium Chloride 0 ml 02/25/24 16:14 Normal Saline 10 Ml Vial IJ DIRECTED PRN Tamsulosin HCl 0.4 mg 02/25/24 20:00 02/28/24 09:39 Tamsulosin 0.4 Mg Capcr PO 0.4 mg BID MERCEDES Administration PFSH Active Problems Active Problems: Problem Status Onset Code Tooth avulsion S03.2XXA Pyuria R82.81 DVT prophylaxis Z29.9 Hypokalemia E87.6 Smoker F17.200 Anaphylactic reaction T78.2XXA Atherosclerosis of artery I70.90 Abdominal aortic aneurysm (AAA) I71.40 Thoracic aortic aneurysm I71.20 Thoracic aorta atherosclerosis I70.0 Closed left hip fracture S72.002A Medical History Medical History (Updated 02/27/24 @ 10:07 by Damian Arita) Seizure disorder as sequela of cerebrovascular accident s/p CVA/hemorrhage, h/o breakthrough in setting of UTI/fever Closed fracture of left proximal humerus (01/10/23) CVA (cerebral vascular accident) Lymphoma Prostate cancer Hypertension Surgical History Surgical History History of craniotomy for brain bleed Tobacco Smoking/Tobacco Use Status: Current every day Tobacco Type: cigarettes Smoking packs per day: 1 Alcohol Alcohol Intake: former Substance Use Substance use: Never Substance use type: does not use Vital Signs and Lab Results Vital Signs Most Recent Vital Signs in EMR: Most Recent Vital Signs Temp Pulse Resp BP Pulse Ox 37.3 C 40 L 22 149/64 H 93 02/28/24 07:25 02/28/24 07:29 02/28/24 07:29 02/28/24 07:29 02/28/24 07:29 Point of Care Results Point of Care Results: Finger Stick Blood Glucose 95 02/26/24 06:42 Lab Results 02/28/24 05:45 02/28/24 05:45 Blood Type / Crossmatch: 2 No Data to Display Complete Blood Count: 2 White Blood Count 7.49 10^3/uL (4.4-10.8) 02/28/24 05:45 Red Blood Count 3.76 10^6/uL (4.36-5.78) L 02/28/24 05:45 Hemoglobin 11.3 g/dL (13.5-17.5) L 02/28/24 05:45 Hematocrit 34.5 % (40.0-50.0) L 02/28/24 05:45 Platelet Count 128 10^3/uL (130-400) L 02/28/24 05:45 Venous Blood Lactate 1.0 mmol/L (0.9-1.7) 02/25/24 12:52 Complete Metabolic Panel: 2 Sodium 141 mmol/L (136-145) 02/28/24 05:45 Potassium 3.7 mmol/L (3.5-5.1) 02/28/24 05:45 Chloride 107 mmol/L (98-107) 02/28/24 05:45 Carbon Dioxide 27.6 mmol/L (21.0-32.0) 02/28/24 05:45 BUN 11 mg/dL (7-18) 02/28/24 05:45 Creatinine 0.8 mg/dL (0.70-1.30) 02/28/24 05:45 Est GFR (CKD-EPI 2020) 90.58 (mL/min/1.73m2) 02/28/24 05:45 Magnesium 1.6 mg/dL (1.8-2.4) L 02/28/24 05:45 Calcium 8.5 mg/dL (8.5-10.1) 02/28/24 05:45 Albumin 2.2 g/dL (3.4-5.0) L 02/26/24 09:35 Glucose 88 mg/dL (74-106) 02/28/24 05:45 Liver Function Panel: 2 Alanine Aminotransferase (ALT/SGPT) 14 U/L (16-63) L 02/26/24 0 9:35 Aspartate Amino Transf (AST/SGOT) 13 U/L (15-37) L 02/26/24 09: 35 Coagulation Panel: 2 INR International Normalized Ratio 1.1 (0.9-1.1) 02/25/24 12:5 2 Prothrombin Time 11.1 sec (9.1-11.1) 02/25/24 12:52 Activated Partial Thromboplast Time 27.2 sec (23.6-32.8) 12:52 Cardiac Panel: 2 Troponin I < 50 ng/L (< or =60) 02/26/24 Arterial Blood Gas: 2 No Data to Display Venous Blood Gas: 2 Venous Blood pH 7.26 (7.31-7.41) L 02/26/24 09:34 Venous Blood Partial Pressure O2 142 mmHg 02/26/24 09:34 Venous Blood Partial Pressure CO2 56 mmHg (41-51) H 02/26/24 09 :34 Venous Blood Oxygen Saturation 99 % 02/26/24 09:34 Venous Blood HCO3 25 mmol/L (23-28) 02/26/24 09:34 Venous Blood Base Excess -2 mmol/L (-2-3) 02/26/24 09:34 Venous Blood Total Carbon Dioxide 23 mmol/L (24-29) L 02/26/24 09:34 Pancreas Panel: 2 No Data to Display Thyroid Panel: 2 Thyroid Stimulating Hormone (TSH) 0.89 uIU/mL (0.36-3.74) 02/24 12:52 Infectious Disease: 2 No Data to Display Blood Cultures: 2 No Data to Display Toxicology Panel: 2 No Data to Display Imaging and Studies Imaging and Studies Study information below may be from another EMR and interpreted by another provider. Please see original notes in EMR for more complete details. EKG Summary: 02/28/24 Conclusion Sinus bradycardia...rate< 50 Right bundle branch block...QRSd>120, terminal axis(90,270) 01/23/23: Exam: Resting ECG Reason for Exam: Post Seizure Patient Location: E HR:48 bpm ECG Measurements Heart Rate 48 AXIS ID 199 P 49 QRSd 155 QRS 59 QT 463 T39 QTc 412 Conclusion Sinus bradycardia...rate< 60 Right bundle branch block...QRSd>120, terminal axis(90,270) Sinus bradycardia rate of 48 with right bundle branch block pattern. ID and QTc within normal limits. No ST segment abnormalities. Appears similar to prior with the exception of new sinus bradycardia. Prior dated last year. I have reviewed and I agree with the emergency room physician's ECG interpretation. Echocardiogram Summary: Patient Name: Narcisa Eduardo Unit #: [id number] Loc: ICU Ordering Provider: Damian Arita Status: ADM IN Primary Care Provider: Elyse Gutierrez Date of Exam: 02/28/24 Sex: M Admission Date: 02/25/24 : 1945 Age: 78 APPROVED REPORT EXAM: Comprehensive 2D, Doppler, and color-flow Echocardiogram Patient Location: In-Patient Room/Bed: [id number] [place] Pool Supervisor: Apryl Rae RDCS (AE) Indications: Hypotension, Ascending aortic aneurysm, pre operative exam Other Information Study Quality: Adequate. Technically limited study due to body habitus, inability to position patient exam done supine bedside, unable to compress patient had pain. Conclusion Normal left ventricular wall thickness and chamber size. Ejection fraction is 60%. Wall motion is normal Normal right ventricular size and function Both atria are normal in size Aortic valve is calcified. There is mild aortic stenosis with a mean gradient of 10 mmHg. There is trace aortic regurgitation Mild mitral annular calcification. Mild mitral regurgitation Estimated right ventricular systolic pressure is 38 mmHg Wall motion Left Ventricle The left ventricle is normal size. The left ventricular systolic function is normal. The left ventricular ejection fraction is within the normal range. There is normal left ventricular wall thickness. There is normal LV segmental wall motion. There is no ventricular septal defect visualized. LVEF is 60%. Right Ventricle Right ventricle is mildly dilated. Right ventricular systolic function is grossly normal. Atria The left atrium size is normal. The right atrium size is normal. The interatrial septum is intact with no evidence for an atrial septal defect. Aortic Valve Aortic valve is calcified. Mean gradient is 10 mmHg, mild aortic stenosis Trace aortic regurgitation. Mitral Valve Mild mitral annular calcification. No evidence of mitral valve stenosis. Mild mitral regurgitation. Tricuspid Valve The tricuspid valve is normal in structure. There is no tricuspid valve stenosis. Mild tricuspid regurgitation. Pulmonic Valve Pulmonic valve is not well visualized. There is no pulmonic valvular stenosis. There is no pulmonic valvular regurgitation. Great Vessels The aortic root is normal in size. Ascending aorta is not well visualized. The IVC was not visualized. Technically limited subcostal imaging. Pericardium Technically limited subcostal imaigng. 2D Dimensions IVSD d PLAX 0.80 cm M: 0.6-1.2Ao Root d 3.63 cm M: 3.1 - 3.7 LVPW d PLAX 0.83 cm M: 0.6 - 1.2 LVID d PLAX 4.67 cm M: 4.2 - 5.8 LVDs 3.14 cm M: 2.5 - 4.0 LV EF Teichholz 61.3 % FS32.85 % LV EDV (Teich)100.9 mL LV ESV (Teich)39.0 mL M-Mode TAPSE 3.08 cm (M/F) >1.7 Auto EF LV EDV A4C96.4 mLLV EDV A2C94.2 mLLV EDV BP93.5 mL LV ESV A4C38.8 mLLV ESV A2C38.9 mLLV ESV BP39.4 mL LVEF(%) A4C59.8 %LVEF(%) A2C58.7 %LVEF(%) BP57.9 % LV SV A4C57.6 mlLV SV A2C55.3 mlLV SV BP54.1 ml LV CO A4C2.2 L/minLV CO A2C2.2 L/minLV CO BP2.2 L/min HR A4C38.18 BPMHR A2C39.26 BPMLV EDV Index (BP) RV Strain Global Peak Long. Strain A4C23.02 Global Peak Long. Strain A4C FW28.61 LA Volume LA Length A4C4.8 cmLA Length A2C4.8 cm LA Area A4C s 18.05 cm2LA Area A2C s 15.75 cm2 LA Vol A4C A-L57.51 mLLA Vol A2C A-L43.54 mLLA Vol Biplane A-L50.2 mL LA Vol/BSA A4C A-LLA Vol/BSA A2C A-LLA Vol/BSA BP A-L 29.2 mL/m2 LA Vol A4C MOD50.7 mLLA Vol A2C MOD40.9 mLLA Vol BP MOD45.6 mL RA Volume RA Area A4C16.8 cm2RA ESV A4C (A-L)52.8mLRA Vol/BSA A4C A-L RA Length A4C4.6 cmRA ESV A4C (MOD)48.7mL LV Diastology MV E' medial0.079 (>0.07 m/s)MV E Vmax 0.98 (0.4-1.3 m/s) MV E/E' MED12.46 (<14)MV A Vmax 0.95 (0.4-1.3 m/s) E/A Ratio 1.0 Aortic Valve AoV Vmax2.09 m/sLVOT Vmax 0.91 m/s AoV Peak Grad17.5 mmHgLVOT Peak Grad 3.3 mmHg AoV Area (Vmax)1.56 cx2IQQW VTI0.285 m AoV VTI0.587 mLVOT Mean Grad 2.1 mmHg AoV Mean Sigifredo.1.56 m/sLVOT SV 102.68 mL AoV Mean Grad10.9 mmHgLVOT Diam s 2.10 cm AoV Area (VTI)1.75 cm2 Velocity Ratio 0.44 Mitral Valve MV DT 256 (160-240 msec) MV Vmax TIPS 1.01 m/s MV Mean Grad 0.8 (<2mmHg) MV Area PHT 3.11 cm2 MV VTI 0.418 m Tricuspid Valve TV S'0.15 m/sTR Vmax 3.11 m/s TR Peak Grad 38.6 mmHg Ordered By: Damian Arita CC: Dictated By: Oriana Aragon M.D. 02/28/24 0853 <Electronically signed by Oriana Aragon M.D. in [place]> 02/28/24 0916 Transcribed By: Oriana Aragon MD 02/28/24 0853 01/2021: ([facility] Records): EF 64%, Mild Anesthesia Assessment and Plan Anesthesia History Personal History: No History of Anesthesia Complications Family History: No Family History of Anesthesia Complications Exercise Tolerance Exercise Tolerance: Metabolic Equivalents<4 Pertinent Negatives Pertinent Negatives: No Symptoms of GERD Cardiac & Pulmonary Exam Cardiac Exam: Normal S1/S2 Heart Sounds (Distant) Pulmonary Exam: Clear Bilateral Breath Sounds Implantable Cardiac Device Does patient have a Pacemaker or an ICD?: No Airway Exam Known Difficult Airway: No Mallampati Class: 2 Mouth Opening: Normal (> 3cm) Thyromental Distance: Greater than 3 cm Neck Range of Motion: Limited ROM (Reports cervical neck discomfort, but able to mobilize) Neck Circumference: Normal Teeth Condition: Generalized Poor Dentition (Missing several teeth) ASA Classification ASA Score: ASA 3 Emergency Case?: Yes NPO Status NPO Status: NPO Clears >2 hours, Solids >8 hours Anesthesia Plan Resuscitation Status: DNR Fully Suspended During Perioperative Period Anesthesia Technique: General Anesthesia Airway Planned: LMA Monitors Used: Standard Monitors and SedLine Preoperative Comments:: 78M with significant smoking history (continues to smoke), with h/o AAA, thoracic aortic aneurysm, HTN, prior ETOH abuse, CVA in 2019 with subsequent bleed and craniotomy, seizure disorder, follicular lymphoma and prostate cancer. Presents with hip fracture requiring surgical fixation. Patient seen both at [facility] and [place] (unable to obtain records) and reports verbally that he gets routine surveillance for his AAA and thoracic aneurysm. AAA 5.1cm noted in [facility] records from 09/2023. Patient does not seek intervention at this time. Anaphylactic reaction most likely to Ancef and/or Rocuronium on 02/26/24 with induction of anesthesia. Procedure not able to be performed. Tryptase still pending. Plan: GA LMA
[2024-02-28] MEDS: Lactated Ringers 1,000 ML 30 ML IV (12:30)
--- NOTE | 2024-02-28 12:39 | W.PM.PROGNOT ---
Date of Service Date of service: 02/28/24 Time of Service: 07:30 Assessment and Plan Assessment and plan (1) Closed left hip fracture: Status: Acute Assessment and plan: Subcapital femoral neck fracture on the left side which is relatively nondisplaced and a valgus orientation. Plan for close reduction and percutaneous screw fixation today. We will avoid rocuronium as well as cefazolin in case of potential allergic reaction which precipitated the episode of profound hypotension in the operating room on Wednesday. I once again reviewed the risk with him to include bleeding, infection, malunion, nonunion, loss of reduction, avascular necrosis, need for repeat procedures. Despite these risk, he elects to proceed. He does express some anxiety about proceeding back to the operating room which is very reasonable. I talked through this with him and answered his questions. Qualifiers: Encounter type: initial encounter Qualified Code(s): S72.002A - Fracture of unspecified part of neck of left femur, initial encounter for closed fracture Subjective Subjective Interval history since last seen: Narcisa has had some increasing confusion overnight. He does have history of CVA with memory issues. He once again ask about the liquid Tylenol and about his antibiotics. He otherwise has been cardiovascular stable with some persistent bradycardia. He is redirectable and responds appropriately to questions. No other concerns identified. Exam Narrative Exam Narrative: Resting in the bed. No acute distress. Left lower extremity slightly externally rotated and flexed. No other significant changes to the left leg. No significant ecchymosis. No skin breakdown. Objective Last Vital Signs Temp 37.7 C H 02/28/24 11:53 Pulse 41 L 02/28/24 11:50 Resp 22 02/28/24 11:50 BP 151/95 H 02/28/24 11:50 Pulse Ox 93 02/28/24 11:50 Laboratory Results - last 24 hr 02/28/24 05:45 WBC 7.49 RBC 3.76 L Hgb 11.3 L Hct 34.5 L MCV 92 MCH 30.1 MCHC 32.8 RDW 14.6 H Plt Count 128 L MPV 9.5 Sodium 141 Potassium 3.7 Chloride 107 Carbon Dioxide 27.6 Anion Gap 6.4 BUN 11 Creatinine 0.8 Est GFR (CKD-EPI 2020) 90.58 Glucose 88 Calcium 8.5 Magnesium 1.6 L Time Spent with Patient Time Spent with Patient: <25 minutes Time was spent: preparing to see the patient(eg.review tests), obtaining and/or reviewing separately otained hiistory and counseling the patient
[2024-02-28] MEDS: CLINDAMYCIN 600 MG/50 ML BAG 100 MG IVPB (12:44)
[2024-02-28] MEDS: Bupivacaine 0.5% Pres-Free 30 ML VIAL (13:22)
--- NOTE | 2024-02-28 13:22 | DI.RAD_ITS ---
Exam(s) XR HIP LT IN OR EXAM: XR HIP LT IN OR CLINICAL HISTORY: Left Subcapital Femoral Neck Fracture TECHNIQUE: 2D and realtime digital imaging was performed. CONTRAST MATERIAL: Refer to procedure report. COMPARISON: CT CT LOWER EXTREMITY LT WO from 02/25/2024 CR,XR XR ABDOMEN FLAT PLATE from 02/26/2024 XA XR HIP LT IN OR from 02/26/2024 FINDINGS: Fluoroscopy was provided for Dr. Bhandari during the performance of a internal fixation of the left subcapital femoral neck fracture. Please refer to the procedure report for complete details. Ka,r=5.15 mGy IMPRESSION: RADIATION DOSE DELIVERED: 0.0 0.0 0
--- NOTE | 2024-02-28 13:37 | ROE_ITS ---
Date of service: 02/28/24 Time of Service: 12:45 Operative Note Operative Note DATE OF PROCEDURE: 02/28/24 PRE-OP DIAGNOSIS: Femoral Neck Femur Fracture - Left PROCEDURE: Cannulated Screw Fixation of Proximal Femur Fracture - LEFT SURGEON: Rao Bhandari ANESTHESIA TYPE: General LMA/ETT Refer to Anesthesia Record ESTIMATED BLOOD LOSS: 10 PATHOLOGY: none sent COMPLICATIONS: None Patient was transported to: PACU Patient's condition: stable Indications: Narcisa is a 78-year-old male who presented to the Emergency Department after a fall. X-rays confirmed the diagnosis of a valgus impacted femoral neck fracture of the proximal femur without significant displacement or comminution. I reviewed the possible treatment options and given the fracture of the femur, I r ecommended operative fixation. He initially went for this procedure on Wednesday but developed profound hypotension upon administration of anesthesia and antibiotic. He responded quite quickly but was observed and monitored. Further testing was performed which showed no significant abnormality and thus his response was thought to be anaphylactic to either the cefazolin or rocuronium. Given his stability we determined he was safe to return back to the operating room. Once again, I discussed the technical details of the surgery. I reviewed the risks such as bleeding, infection, pain, stiffness, malunion, nonunion, hardware prominence, hardware faiilure, malrotation, avascular necrosis, blood clot. Despite these risks, Narcisa agreed to proceed. Findings: A femoral neck fracture was confirmed to be stable and thus secured with 3 7.3mm cannulated screws in a percutaneous fashion. Procedure Description: Narcisa was taken back to the operating room. A general anesthetic was then administered. He was observed carefully and there is no sign of cardiovascular compromise. The feet were wrapped with cast padding and Coban and then placed into the boot liners and then into the boots. Care was taken to protect the skin and make sure the heels were fully down and the boots were stable. The patient was then positioned onto the HANA table. Both legs were held in a neutral position. SCDs were applied. The patient was then slid down onto a perineal post. The arm of the operative side was then placed across the chest and secured. The nonoperative leg was scissored. A gentle reduction was then performed with traction and internal rotation and gentle external manipulation. Prophylactic antibiotics in the form of clindamycin were administered. The left leg was then prepped with Chloraprep and draped in a standard fashion with shower-curtain type drape with Iodine impregnated skin protection. A timeout to confirm correct identity, side and site, procedure, allergies, anesthesia, and medical concerns was performed. Using fluoroscopy, the starting point was marked over the lateral hip. The first pin was placed into a posterior?inferior position to form an inverted triangle. This was made sure to start proximal of the lesser trochanter. It was advanced into the femoral head and confirmed to be in a good position both on the AP and the lateral. 2 additional pins from the 7.3 mm cannulated system replaced, both superior, 1 anterior 1 posterior. These were once again confirmed to be in good position on fluoroscopy. They were advanced to the appropriate position in the path of the pin was cut with a knife. The pin length was measured and the lateral cortex was opened with a drill. The appropriate sized screws were then placed loosely. Once all 3 were in position I then proceeded circumferentially tightening each screw by 1 or 2 turns into each were tightened. These had excellent fixation. There is no screw penetration in the head and no penetration within the lateral cortex. AP and lateral x-rays were once again obtained to confirm appropriate positioning throughout both planes and without displacement nor fracture propagation. The wounds were thoroughly irrigated. A cocktail consisting of 123mg of Ropivacaine, 0.25mg of Epinephrine, 0.04mg of Clonidine, and 15mg of Ketorolac, diluted to 50cc was injected throughout the wounds both deep and superficially. The deep fascia of the proximal two wounds was reapproximated with a 0 Vicryl. The deep tissues were closed with a 2-0 Vicryl and the skin was closed with a running subcuticular Monocryl. The wounds were dressed with a Mepilex silver dressing. At the end of the case, all counts were correct. Narcisa tolerated the procedure well without known complication and was taken to the PACU for recovery. Physical therapy will start post-operatively, weigh-bearing as tolerated with a ssistive devices. Anticoagulation will start within 12-24 hours. 3 doses of post-operative antibitiocis for prophylaxis will be administered.
[2024-02-28] MEDS: fentaNYL 100 MCG/2 ML VIAL IVP (14:15)
--- NOTE | 2024-02-28 14:19 | W.ANESPOSTOP ---
Postoperative Evaluation Date, Time and Location Date Performed: 02/28/24 Time Performed: 14:19 Patient Location: PACU Vital Signs Most Recent Imported Vital Signs: Most Recent Vital Signs Temp Pulse Resp BP Pulse Ox 36.5 C 63 21 176/90 H 95 02/28/24 14:00 02/28/24 13:51 02/28/24 13:51 02/28/24 13:51 02/28/24 14:00 Most Recent Vital Signs Temp Pulse Resp BP Pulse Ox 36.6 C 47 L 17 113/51 L 100 02/26/24 10:07 02/26/24 07:31 02/26/24 10:20 02/26/24 10:07 02/26/24 10:20 Pain Score Most Recent Pain Score: Most Recent Pain Score Pain Level [Left Hip] 0 02/25/24 12:36 Pain Level 0 02/28/24 14:00 Assessment Mental Status: Awake (Alert & Oriented to Patient Baseline) Airway and Respiratory Function: Patent airway with normal (patient baseline) respiratory exam Cardiovascular Function: Hemodynamically Stable Hydration Status: Adequately Hydrated Nausea & Vomiting: No Nausea or Vomiting Pain: Pain is tolerable per patient (Reports tolerable, however, BPs elevated and some pain. Treating with Fentanyl at this time) Peripheral Nerve Block: Patient did not receive a nerve block
--- NOTE | 2024-02-28 14:43 | PHA.REVIEW2 ---
Pharmacy Admission Review Admission Clinical Review Admission Pharmacy Review: Tooth avulsion (Acute) Pyuria (Acute) DVT prophylaxis (Acute) Hypokalemia (Acute) Smoker (Acute) Anaphylactic reaction (Acute) Atherosclerosis of artery (Acute) Abdominal aortic aneurysm (AAA) (Acute) Thoracic aortic aneurysm (Acute) Thoracic aorta atherosclerosis (Acute) Closed left hip fracture (Acute) cefazolin Allergy (Severe, Verified 02/26/24 11:54) Anaphylaxis Iodinated Contrast Media Allergy (Verified 02/25/24 12:33) Skin Rash Resuscitation Status DNI Height 5 ft 10 in Weight 56.2 kg Comments Comments/Follow Ups: Watch BP, HR, SCr, mag, labs and for med changes (IV to PO, possible renal dose adjustments) Pharmacy Admission Review Renal Dosing Renal Dosing: BUN 11 mg/dL (7-18) 02/28/24 05:45 Creatinine 0.8 mg/dL (0.70-1.30) 02/28/24 05:45 Medications needing adjustments: Reviewed (Crcl ~48.3 mL/min current meds okay) Anticoagulation Anticoagulation: Hgb 11.3 g/dL (13.5-17.5) L 02/28/24 05:45 Hct 34.5 % (40.0-50.0) L 02/28/24 05:45 Plt Count 128 10^3/uL (130-400) L 02/28/24 05:45 INR 1.1 (0.9-1.1) 02/25/24 12:52 Creatinine 0.8 mg/dL (0.70-1.30) 02/28/24 05:45 DVT Prophylaxis: Reviewed (enoxaparin was put on hold as pt was going to the OR today) Opiate Usage Evaluate Pain Scale/Pains Meds: Reviewed Scheduled Bowel Reg ordered if on Opiates?: Yes Relevant Labs Relevant Labs: Sodium 141 mmol/L (136-145) 02/28/24 05:45 Potassium 3.7 mmol/L (3.5-5.1) 02/28/24 05:45 Chloride 107 mmol/L (98-107) 02/28/24 05:45 Magnesium 1.6 mg/dL (1.8-2.4) L 02/28/24 05:45 Electrolytes, C-Reactive P, ESR: Reviewed (IV mag ordered ) DM Control DM Control: Glucose 88 mg/dL (74-106) 02/28/24 05:45 DM Control: N/A Cardiac Review Cardiac Review: Troponin I < 50 ng/L (< or =60) 02/26/24 13:30 BP, HR, EF%: Reviewed (BP has been up and down this admission. HR has been low to normal (bradycardia likely due to lacosamide per provider).) QTc Review QTc: Reviewed (QTc 412 on EKG today) IV to PO Switch IV Medications: Intervened (Asked provider about changing IV acetaminophen to PO post-op) Home Meds Home Med List reviewed: Reviewed Relevent Home Meds Not ordered & why?: bacillus probiotic, midazolam Current Meds Current Medication Order Review: Reviewed Comments Comments/Follow Ups: Watch BP, HR, SCr, mag, labs and for med changes (IV to PO, possible renal dose adjustments)
[2024-02-28] MEDS: CLINDAMYCIN 300 MG/50 ML BAG 100 MG IVPB (17:55)
[2024-02-28] MEDS: Docusate Sodium 100 MG CAP PO (20:26)
[2024-02-28] MEDS: Melatonin 3 MG TAB PO (20:26)
[2024-02-28] MEDS: Acetaminophen 500 MG TAB 1000 MG PO (20:27)
[2024-02-29] MEDS: CLINDAMYCIN 300 MG/50 ML BAG 100 MG IVPB ×2 (02:19→08:33)
[2024-02-29] MEDS: Normal Saline Flush 10 ML SYR IVP ×4 (02:55→20:27)
[2024-02-29 06:40] LABS: Abs Immature Grans 0.02 10^3/uL (0.0-0.06); Absolute Basophil Count 0.01 10^3/uL (0.0-0.2); Absolute Eosinophil Count 0.08 10^3/uL (0.0-0.7); Absolute Lymphocyte Count 1.03 10^3/uL (1.2-3.4); Absolute Monocyte Count 0.71 10^3/uL (0.1-0.8); Basophils % 0.1 %; HCT 34.4 % (40.0-50.0); HGB 11.8 g/dL (13.5-17.5); Immature Grans % 0.2 %; Lymphocytes % 12.5 %; MCH 30.8 pg (27.0-33.0); MCHC 34.3 % (32.0-36.0); MCV 90 fL (80-95); MPV 9.9 fL (8.0-11.0); Monocytes % 8.6 %; Neutrophils % 77.6 %; Platelet Count 143 10^3/uL (130-400); RBC 3.83 10^6/uL (4.36-5.78); RDW 14.3 % (11.8-14.1); RDW-SD 46.9 fL; WBC 8.25 10^3/uL (4.4-10.8)
[2024-02-29 07:03] LABS: ALT 14 U/L (16-63); AST 13 U/L (15-37); Albumin 2.7 g/dL (3.4-5.0); Alkaline Phosphatase 93 U/L (46-116); Anion Gap 2.1 mmol/L (3-11); BUN 12 mg/dL (7-18); Bilirubin, Total 0.47 mg/dL (0.2-1.0); CO2 32.9 mmol/L (21.0-32.0); CREATININE 0.8 mg/dL (0.70-1.30); Calcium 8.9 mg/dL (8.5-10.1); Chloride 103 mmol/L (98-107); Estimated GFR 90.58 (mL/min/1.73m2); Glucose 131 mg/dL (74-106); Magnesium 1.9 mg/dL (1.8-2.4); Sodium 138 mmol/L (136-145); Total Protein 5.9 g/dL (6.4-8.2)
[2024-02-29] MEDS: Celecoxib 200 MG CAP PO ×2 (08:45→20:27)
[2024-02-29] MEDS: Tamsulosin 0.4 MG CAPCR PO ×2 (08:46→20:27)
[2024-02-29] MEDS: Potassium Chloride 10 MEQ TABCR PO (08:47)
[2024-02-29] MEDS: Docusate Sodium 100 MG CAP PO ×2 (08:56→20:27)
[2024-02-29] MEDS: Lactobacillus Acidophilus CAP 1 CAP PO (08:57)
--- NOTE | 2024-02-29 08:57 | PDOC.CMPRO ---
Date of service: 02/29/24 Time of Service: 08:57 Care Management Progress Note Progress Note Text Progress Note Text: Narcisa was sitting up in bed when CM met with him. He was polite and willing to engage in conversation. He informed CM that he worked with PT this morning and was able to ambulate a total of 40 feet with a walker with minimal assist. He was pleased with the progress and encouraged CM to share his success with his family. CM raised the subject of going to rehab for a couple of weeks when he discharges and Narcisa indicated that he would rather not. CM stressed the fact that it would give him the opportunity to get stronger and be more independent when he returns home. [facility]errals [facility] to [facility]. He received a bed offer from [facility] in [place] and [facility] is reviewing his information. PT has recommended SNF vs HH PT depending on progress. A final decision regarding disposition has not been made. Discharge Potential Discharge Needs: Other (SNF) Anticipated Barriers to Discharge: Bed availability Patient/Family Education Needs: Review discharge instructions, discuss Ask Me Three Transportation: Private vehicle Plan: Anticipate Narcisa will transfer to a SNF for short term rehab prior to returning return home once medically cleared. If he declines the bed offer (s) he receives, he will likely return home with new home health services for PT and OT. Transportation will be determined by disposition. Narcisa will follow up with the his community providers, his orthopedic surgeon and plan of care. CM will continue to follow and support discharge planning needs. SDOH(Care Management) Screening Will the Patient Participate in the Screening?: Unable to obtain Do you worry about having a steady place to live?: no Problems where you live: no known problems In the past 12 months, have you had to go without electric, gas, oil or water in your home?: no Have you or anyone in your house had to go without enough food to eat?: no Has lack of transportation kept you from medical appointments or from doing things needed for daily living?: no Has anyone in your support network made you feel unsafe for any reason?: no
--- NOTE | 2024-02-29 09:08 | PGE_ITS ---
Date of Service Date of service: 02/29/24 Time of Service: 07:05 Assessment and Plan Assessment and plan (1) Closed left hip fracture: Status: Acute Assessment and plan: Narcisa is a 78-year-old male who is status post screw fixation of a left subcapital femoral neck fracture. He is doing well. At this point it is currently slow and steady recovery. Will take 6 to 8 weeks before he regains some better ambulatory dependence. He is weightbearing as tolerated with assistive devices. He may have anticoagulation starting today. There are no positioning restrictions. Discharge disposition by physical therapy. Qualifiers: Encounter type: initial encounter Qualified Code(s): S72.002A - Fracture of unspecified part of neck of left femur, initial encounter for closed fracture Subjective Subjective Interval history since last seen: Narcisa reports be doing okay. His pain is been controlled. He has been able to get up with physical therapy to a chair. He denies any acute issues. No chest pain or shortness of breath. No fevers or chills. Exam Narrative Exam Narrative: Sitting up in the bed. No acute distress. Alert and orient x 3. Evaluation the left lower extremity shows a clean dry and intact dressing. No significant pain with internal and external rotation of the left hip. Intact ankle dorsiflexion, plantarflexion, great toe extension and flexion. Palpable DP and PT pulse. Objective Last Vital Signs Temp 37.7 C H 02/28/24 15:28 Pulse 68 02/28/24 22:59 Resp 22 02/28/24 18:01 BP 145/69 H 02/28/24 22:59 Pulse Ox 93 02/28/24 22:59 Laboratory Results - last 24 hr 02/29/24 02/29/24 05:35 05:38 WBC 8.25 RBC 3.83 L Hgb 11.8 L Hct 34.4 L MCV 90 MCH 30.8 MCHC 34.3 RDW 14.3 H Plt Count 143 MPV 9.9 Immature Gran % 0.2 Neutrophils % 77.6 Lymphocytes % 12.5 Monocytes % 8.6 Eosinophils % 1.0 Basophils % 0.1 Nucleated RBC % 0.0 Absolute Neutrophils 6.40 Absolute Lymphocytes 1.03 L Absolute Monocytes 0.71 Absolute Eosinophils 0.08 Absolute Basophils 0.01 Sodium Cancelled 138 Potassium Cancelled 4.0 Chloride Cancelled 103 Carbon Dioxide Cancelled 32.9 H Anion Gap Cancelled 2.1 L BUN Cancelled 12 Creatinine Cancelled 0.8 Est GFR (CKD-EPI 2020) Cancelled 90.58 Glucose Cancelled 131 H Calcium Cancelled 8.9 Magnesium 1.9 Total Bilirubin 0.47 AST 13 L ALT 14 L Alkaline Phosphatase 93 Total Protein 5.9 L Albumin 2.7 L Time Spent with Patient Time Spent with Patient: <25 minutes Time was spent: preparing to see the patient(eg.review tests), referring, commu nicating with other health healthcare network consultant, indepentently interpreting results and counseling the patient
[2024-02-29] MEDS: traMADol 50 MG TAB PO (09:42)
--- NOTE | 2024-02-29 10:55 | PT.INIE ---
PT Notes Visit Reasons: Left Hip Fracture Physical Therapy Inpatient Initial Evaluation Date: 02/29/2024 Referring Doctor: Rao Bhandari MD PT Orders: PT CONSULT: S/P Ortho Surgery/. S/P screw fixation of L R D MANAGER. WBAT with walker. Precautions: Fall. Standard. Per Dr. Beach WBAT with AD. Patient Profile/Admitting Diagnosis: Narcisa is a 78-year-old male with past medical history significant for seizure disorder as a sequela previous CVA diagnosed with nondisplaced subcapital femoral neck fracture on the left side and is status post ORIF with cannulated screw fixation on postoperative day 1. PMHX: All Active Problems (Updated 02/26/24 @ 07:15 by Rao Bhandari MD) Atherosclerosis of artery (Acute) Abdominal aortic aneurysm (AAA) (Acute) Thoracic aortic aneurysm (Acute) Thoracic aorta atherosclerosis (Acute) Closed left hip fracture (Acute) COVID (Acute) Breakthrough seizure (Acute) Medical History (Updated 02/26/24 @ 07:15 by Rao Bhandari MD) Closed fracture of left proximal humerus (01/10/23) Seizure in setting of fever and UTI CVA (cerebral vascular accident) Lymphoma Prostate cancer Hypertension Surgical History History of craniotomy for brain bleed Social History/Home Situation: Lives alone. Modified independent indoors and outdoors using single point cane. Equipment Owned/DME: [facility] Subjective: Complained of fatigue and expressed frustration oever today's performance. Motivated to get better again so he could work on his garden. Objective: General Observation: resting in bed. IV access trhough R UE. Abrasion on L knee. Mckeon catheter in place. TEDS on B legs/feet. Mental Status: Alert and oriented as to person, place, time, and purpose. Able to pay attention, focus, and respond appropriately. Pain: As above Vital Signs: Closely monitored by nursing staff ROM: Right Lower Extremity: Hip flexion WFL. Hip abduction WFL. Knee flexion WFL. Ankle dorsiflexion WFL. Ankle plantarflexion WFL. Left Lower Extremity: Hip flexion allows up to 100 degrees. Hip abduction WFL. Knee flexion 30 degrees to 90 degrees. Knee extesnion -30 degrees. Ankle dorsiflexion WFL. Ankle plantarflexion WFL. Strength: Right Lower Extremity: Hip flexors 4/5. Hip abductors 4/5. Knee flexors 4/5. Knee extensors 4/5. Ankle dorsiflexors 4/5. Ankle plantarflexors 4/5. Left Lower Extremity: Hip flexors 3-/5. Hip abductors 3-/5. Knee flexors 3-/5. Knee extensors 3-/5. Ankle dorsiflexors 4-4-/5. Ankle plantarflexors []/5. Bed Mobility/Transfers: Minimal cueing provided for use of B hands as needed for support, movement sequence, AD management, and posture to reduce fall risk and minimize pain report Supine to sit minimal assist Sit to stand minimal assist with FWW Stand to sit with minimal assist with FWW Bed to reclining chair minimal assist with FWW Gait: 10 feet +15 feet + 40 feet with use of FWW with minimal assist and minimal verbal cueing for safe limb advancement, hand placement, AD management, and posture to minimize pain report and reduce fall risk. Patient expressed frustration over not being able to walk as he should. No LOB. No SOB. Balance: Static Sitting: Normal Dynamic Sitting: Normal Static Standing: Fair Dynamic Standing: Fair Special Tests: Mobility Limitations Standardized Measure [facility] AM-PAC 6 clicks Basic Mobility Inpatient Short Form: Raw Score: 18 CMS Score: 47% deficit Informed Consent/Education: Patient was instructed in purpose of PT consult and plan of care. Agreeable to proceed with established PT POC to achieve personal goals. Assessment: Pain limited mobility performance at start of walking but patient felt much better and gianed more confidence walking back to room. needed us eof FWW for stability and pain releief. Patient presents with clinical signs and symptoms consistent with current/admitting diagnoses that have resulted to mobility limitations, gait instability, generalized weakness, and overall ADL decline as demonstrated by the following impairment level findings: 1. Decreased strength to L hip and knee major muscle groups; L shoulder and L LE from preveious CVA 2. Impaired sitting/standing balance 3. Impaired activity tolerance 4. Limitation of joint range of motion in L hip and knee 5. Pain in L hip at 4-5/10 Impairments are contributing to the following functional limitations: 1. Decline in bed mobility skills 2. Decline in transfer skills 3. Difficulty with ambulation without assistive device and physical assistance 4. Increased completion time for mobility ADL performance 5. Increased risk for falls 6. Difficulty with managing steps alone safely Patient is assessed [place] a 41093 moderate complexity based on the following: History: 78-year-old male with past medical history as indicated above Examination: Demonstrable impairment in strength, balance, and mobility level with underlying impairments and functional limitations as exhibited above as well as deficit score of 47% utilizing the [facility] Mobility Inpatient Short Form Presentation: Evolving Decision Makin moderate complexity Goals: Goals X1 week 1. Supine-Sit independent 2. Sit-Supine independent 3. Sit-Stand independent 4. Stand-Sit independent with FWW 5. Bed-Chair independent with FWW 6. Chair-Bed independent with FWW 7. Independent gait on level surface with use of FWW for at least 300 feet without report of pain nor dyspnea 8. Independent stair negotiation while holding onto B rails for at least 3 steps without report of pain nor dyspnea 9. Independent with home exercise program 10. Good static and dynamic standing balance/tolerance Plan of Care/Treatment Plan: 1-2x/day, 7 days/week x 1 week. Plan of care has been reviewed with the DIRECTOR RECORDS MANAGEMENT providing the service under Physical Therapy direction. Initiate Physical Therapy intervention for pain management as needed, strengthening, bed mobility, transfers, gait, stairs, balance training, and use of assistive device. DISCHARGE RECOMMENDATIONS: Home with no services [] [] Home with services [specify] [] Home with outpatient PT [] [] SNF for continued rehabilitation [] [] Retirement Care [] [] SNF versus LTC based on ability to participate and progress [] [X] Short-term rehab vs. PT based on progress towards goals TREATMENT CODE/TIME: 09864 x 20 minutes for 1 unit, 71152 x 15 minutes for 1 unit (10:55-11:33). Thank you for the opportunity to participate in the care of this patient. Yu Estrada PT, DPT, CLT [facility] [place], [place]
--- NOTE | 2024-02-29 12:36 | PGE_ITS ---
Date of Service Date of service: 02/29/24 Time of Service: 12:36 Assessment and Plan Assessment and plan (1) Closed left hip fracture: Status: Acute Assessment and plan: POD #2 Cannulated screw fixation of proximal left femur fracture 02/28/2024 Continue physical therapy we will plan to discontinue his Mckeon catheter and make sure he is voiding on his own prior to dc Qualifiers: Encounter type: initial encounter Qualified Code(s): S72.002A - Fractur e of unspecified part of neck of left femur, initial encounter for closed fracture (2) Anaphylactic reaction: Status: Resolved Assessment and plan: Patient experienced severe hypertension perioperatively during the first attempt at surgical repair of his hip fracture and was felt to be secondary to allergic reaction either to rocuronium or due to Ancef. He recovered quite well with short term use of epinephrine and steroids. Qualifiers: Encounter type: initial encounter Qualified Code(s): T78.2XXA - Anaphylactic shock, unspecified, initial encounter (3) Abdominal aortic aneurysm (AAA): Status: Acute Assessment and plan: Estimated sizes documented going back to 2021 go from 5.0 to 5.1 to 4.6. The most recent imaging we have is the 4.6cm from CT this May here. Qualifiers: Abdominal aorta location: infrarenal aorta Presence of rupture: without rupture Qualified Code(s): I71.43 - Infrarenal abdominal aortic aneurysm, without rupture (4) Seizure disorder as sequela of cerebrovascular accident: Assessment and plan: On lacosamide, continue. No seizure-like events (5) Smoker: Status: Acute Assessment and plan: currently denies nicotine replacement therapy. Dr. Arita has discussed with him regarding need to quit. Patient apparently is contemplating this. (6) Hypokalemia: Status: Resolved Assessment and plan: K up to 4.0 from admission level of 2.9 and 3.4 yesterday. continue to monitor and replace. Did have hypomagnesemia at 1.6 which has now been corrected to 1.9. continue oral replacement of both and monitor (7) Thoracic aortic aneurysm: Status: Acute Assessment and plan: Diagnosed in 2021 when borderline at 4cm (aneursym typically defined as >4cm). [facility] Aortic root was reported as normal size on his echo. He has mild and trace of AI but normal LV function. Qualifiers: Thoracic aorta location: ascending aorta Presence of rupture: without rupture Qualified Code(s): I71.21 - Aneurysm of the ascending aorta, without rupture (8) DVT prophylaxis: Status: Acute Assessment and plan: LMWH. held prior to surgery I have resumed this today. (9) Pyuria: Status: Resolved Assessment and plan: no evidence for UTI on urine culture. patient had treatment w/ antibiotics perioperatively anyway (10) Discharge planning issues: Status: Acute Assessment and plan: Patient prefers to return home with home health services however I told him and his daughter that disposition will be determined by his abilities at the time of discharge and based upon physical therapy's recommendations. Subjective Subjective Interval history since last seen: Patient states his hip pain is controlled. He was seen walking around the ICU this morning for P.T. He is now visitng w/ his daughter. I spoke w/ him and his daughter about his potential need for short term stay at SNF vs going home w/ home P.T. A lot blake depend upon how he does for P.T. over the next day or two. If he continues to improve then home w/ home health and home P.T. will be an option Exam Narrative Exam Narrative: Alert and oriented sitting up in his chair talking with his daughter no acute distress Lungs are clear with prolonged expiratory phase no rhonchi or wheezes or rales Heart regular rate and rhythm soft systolic murmur no gallop Abdomen soft nondistended normal bowel sounds nontender. (Patient notes she has had flatus but no BM yet) Extremities without peripheral cyanosis or edema hip is nontender to palpation Objective Last Vital Signs Temp 37.7 C H 02/28/24 15:28 Pulse 68 02/28/24 22:59 Resp 22 02/28/24 18:01 BP 145/69 H 02/28/24 22:59 Pulse Ox 93 02/28/24 22:59 Laboratory Results - last 24 hr 02/26/24 02/29/24 02/29/24 13:30 05:35 05:38 WBC 8.25 RBC 3.83 L Hgb 11.8 L Hct 34.4 L MCV 90 MCH 30.8 MCHC 34.3 RDW 14.3 H Plt Count 143 MPV 9.9 Immature Gran % 0.2 Neutrophils % 77.6 Lymphocytes % 12.5 Monocytes % 8.6 Eosinophils % 1.0 Basophils % 0.1 Nucleated RBC % 0.0 Absolute Neutrophils 6.40 Absolute Lymphocytes 1.03 L Absolute Monocytes 0.71 Absolute Eosinophils 0.08 Absolute Basophils 0.01 Sodium Cancelled 138 Potassium Cancelled 4.0 Chloride Cancelled 103 Carbon Dioxide Cancelled 32.9 H Anion Gap Cancelled 2.1 L BUN Cancelled 12 Creatinine Cancelled 0.8 Est GFR (CKD-EPI 2020) Cancelled 90.58 Glucose Cancelled 131 H Calcium Cancelled 8.9 Magnesium 1.9 Total Bilirubin 0.47 AST 13 L ALT 14 L Alkaline Phosphatase 93 Total Protein 5.9 L Albumin 2.7 L Tryptase 22.8 H Time Spent with Patient Time Spent with Patient: 25-34 minutes Time was spent: preparing to see the patient(eg.review tests), ordering medications,tests, procedures, referring, communicating with other health acute care occupational therapist, indepentently interpreting results, counseling the patient and care coordination
--- NOTE | 2024-02-29 15:02 | CHAPLAIN ---
Narcisa was resting in bed when I visited.His daughter was with him. He told me he knew of chaplains from the . He's a . He said he had a pin put in his hip and hopes to be home soon. His daughter seemed very supportive. She does not like hospitals and described why. Narcisa seemed to like the red, white and blue prayer shawl I brought for him. He had listened to dulcimer music from the volunteer, Silvia Garcia, this morning and said he liked it.
[2024-02-29 15:46] VITALS: BP 129/64; PULSE 47; RESP 17; TEMP 37.3; O2SAT 95
[2024-02-29] MEDS: Magnesium Gluconate 500 MG TAB PO (16:52)
[2024-02-29] MEDS: Acetaminophen 500 MG TAB 1000 MG PO (20:26)
[2024-02-29] MEDS: Atorvastatin 40 MG TAB 80 MG PO (20:26)
[2024-02-29] MEDS: Melatonin 3 MG TAB PO (20:27)
[2024-02-29] MEDS: Enoxaparin 30 MG/0.3 ML SYR SC (20:27)
[2024-02-29 21:01] VITALS: BP 123/63; PULSE 51; RESP 16; TEMP 36.2; O2SAT 95
[2024-03-01] VITALS (7 sets, daily range): BP systolic 109–149; BP diastolic 71–83; PULSE 45–72; RESP 16–18; TEMP 36.1–37.7; O2SAT 93–97
--- NOTE | 2024-03-01 02:54 | NUR.NOTE ---
coughting productively but swallowing expectorate. taliing to himself, not really awake. when asked if he needed anything shakes his head no.
[2024-03-01] MEDS: Acetaminophen 500 MG TAB 1000 MG PO ×2 (06:33→20:35)
[2024-03-01 07:06] LABS: Abs Immature Grans 0.04 10^3/uL (0.0-0.06); Absolute Basophil Count 0.03 10^3/uL (0.0-0.2); Absolute Lymphocyte Count 1.31 10^3/uL (1.2-3.4); Absolute Monocyte Count 0.48 10^3/uL (0.1-0.8); Basophils % 0.4 %; Eosinophils % 7.4 %; HCT 35.8 % (40.0-50.0); HGB 11.8 g/dL (13.5-17.5); Immature Grans % 0.6 %; Lymphocytes % 19.4 %; MCH 30.1 pg (27.0-33.0); MCV 91 fL (80-95); MPV 9.3 fL (8.0-11.0); Monocytes % 7.1 %; Neutrophils % 65.1 %; Platelet Count 139 10^3/uL (130-400); RBC 3.92 10^6/uL (4.36-5.78); RDW 14.5 % (11.8-14.1); RDW-SD 48.3 fL; WBC 6.76 10^3/uL (4.4-10.8)
[2024-03-01 07:23] LABS: BUN 12 mg/dL (7-18); CO2 28.3 mmol/L (21.0-32.0); CREATININE 0.7 mg/dL (0.70-1.30); Calcium 8.7 mg/dL (8.5-10.1); Chloride 106 mmol/L (98-107); Estimated GFR 94.31 (mL/min/1.73m2); Glucose 103 mg/dL (74-106); Potassium 4.1 mmol/L (3.5-5.1); Sodium 140 mmol/L (136-145)
[2024-03-01 07:24] LABS: Anion Gap 5.7 mmol/L (3-11); Magnesium 1.7 mg/dL (1.8-2.4)
[2024-03-01] MEDS: Docusate Sodium 100 MG CAP PO ×2 (09:24→20:35)
[2024-03-01] MEDS: Celecoxib 200 MG CAP PO ×2 (09:25→20:36)
[2024-03-01] MEDS: Tamsulosin 0.4 MG CAPCR PO ×2 (09:25→20:35)
[2024-03-01] MEDS: Lactobacillus Acidophilus CAP 1 CAP PO (09:25)
[2024-03-01] MEDS: Cholecalciferol (Vitamin D3) 1,000 UNIT TAB 1000 UNITS PO (09:25)
[2024-03-01] MEDS: Magnesium Gluconate 500 MG TAB PO (09:25)
[2024-03-01] MEDS: Potassium Chloride 10 MEQ TABCR PO (09:25)
--- NOTE | 2024-03-01 10:09 | W.PM.PROGNOT ---
Date of Service Date of service: 03/01/24 Time of Service: 10:09 Assessment and Plan Assessment and plan (1) Closed left hip fracture: Status: Acute Assessment and plan: POD #3 Cannulated screw fixation of proximal left femur fracture 02/28/2024 Continue physical therapy, giraldo dc last night. He has had some urinary incontinence, I have asked nursing to check PVR and let me know if high. Qualifiers: Encounter type: initial encounter Qualified Code(s): S72.002A - Fracture of unspecified part of neck of left femur, initial encounter for closed fracture (2) Anaphylactic reaction: Status: Resolved Assessment and plan: Patient experienced severe hypotension perioperatively during the first attempt at surgical repair of his hip fracture and was felt to be secondary to allergic reaction either to rocuronium or due to Ancef. He recovered quite well with short term use of epinephrine and steroids. Qualifiers: Encounter type: initial encounter Qualified Code(s): T78.2XXA - Anaphylactic shock, unspecified, initial encounter (3) Abdominal aortic aneurysm (AAA): Status: Acute Assessment and plan: Estimated sizes documented going back to 2021 go from 5.0 to 5.1 to 4.6. The most recent imaging we have is the 4.6cm from CT this May here. Qualifiers: Abdominal aorta location: infrarenal aorta Presence of rupture: without rupture Qualified Code(s): I71.43 - Infrarenal abdominal aortic aneurysm, without rupture (4) Seizure disorder as sequela of cerebrovascular accident: Assessment and plan: On lacosamide, continue. No seizure-like events (5) History of posttraumatic stress disorder (PTSD): Status: Acute Assessment and plan: patient declines to try any antianxiety or antidepressants (6) Smoker: Status: Acute Assessment and plan: currently denies nicotine replacement therapy. Dr. Arita has discussed with him regarding need to quit. Patient apparently is contemplating this. (7) Hypokalemia: Status: Resolved Assessment and plan: resolved. continue replacement and monitor (8) Thoracic aortic aneurysm: Status: Acute Assessment and plan: Diagnosed in 2021 when borderline at 4cm (aneursym typically defined as >4cm). [facility] Aortic root was reported as normal size on his echo. He has mild and trace of AI but normal LV function. Qualifiers: Presence of rupture: without rupture Thoracic aorta location: ascending aorta Qualified Code(s): I71.21 - Aneurysm of the ascending aorta, without rupture (9) DVT prophylaxis: Status: Acute Assessment and plan: LMWH. held prior to surgery I have resumed this today. (10) Discharge planning issues: Status: Acute Assessment and plan: Patient prefers to return home with home health services however I told him and his daughter that disposition will be determined by his abilities at the time of discharge and based upon physical therapy's recommendations. Subjective Subjective Interval history since last seen: Narcisa states that he has no hip pain. His nurse has noted some coughing spells after taking his meds. We will request BALANCE WHEEL MOTION INSPECTOR consult. Overall he seems to be doing well postoperatively w/ mobility and pain control. He did open up emotionally about his home situation and his relationship w/ his of 53 years. He is very frustrated w/ being dependent upon his . He would like to be able to do more. He admits that he will have emotional anger outbursts and will take it out on her even though he does not mean to do so. He has had some consolation in talks w/ a neighbor whom he says is a retired [facility] psychiatrist. Narcisa says he has been medicated in the past for PTSD but did not like the way he felt on meds. Exam Narrative Exam Narrative: Narcisa is alert, oriented to person/place/ circumstances Lungs: clear but w/ prolonged expiratory phase Heart: RRR, harsh systolic murmur over apex but heard across the precordium Abdomen: soft, nontender, nondistended Extremities: left hip site w/out edema or bruising and nontender to palpation; legs w/out edema Objective Last Vital Signs Temp 37 C 03/01/24 06:39 Pulse 72 03/01/24 06:39 Resp 18 03/01/24 06:39 BP 149/71 H 03/01/24 06:39 Pulse Ox 97 03/01/24 06:39 Laboratory Results - last 24 hr 03/01/24 05:40 WBC 6.76 RBC 3.92 L Hgb 11.8 L Hct 35.8 L MCV 91 MCH 30.1 MCHC 33.0 RDW 14.5 H Plt Count 139 MPV 9.3 Immature Gran % 0.6 Neutrophils % 65.1 Lymphocytes % 19.4 Monocytes % 7.1 Eosinophils % 7.4 Basophils % 0.4 Nucleated RBC % 0.0 Absolute Neutrophils 4.40 Absolute Lymphocytes 1.31 Absolute Monocytes 0.48 Absolute Eosinophils 0.50 Absolute Basophils 0.03 Sodium 140 Potassium 4.1 Chloride 106 Carbon Dioxide 28.3 Anion Gap 5.7 BUN 12 Creatinine 0.7 Est GFR (CKD-EPI 2020) 94.31 Glucose 103 Calcium 8.7 Magnesium 1.7 L Time Spent with Patient Time Spent with Patient: 35-49 minutes Time was spent: preparing to see the patient(eg.review tests), ordering medications,tests, procedures, referring, communicating with other health healthcare marketer, indepentently interpreting results, counseling the patient and care coordination
[2024-03-01] MEDS: Normal Saline Flush 10 ML SYR IVP ×2 (10:55→20:36)
--- NOTE | 2024-03-01 11:04 | PDOC.CMPRO ---
Date of service: 03/01/24 Time of Service: 11:04 Care Management Progress Note Progress Note Text Progress Note Text: Narcisa was lying in bed when CM met with him. His and daughter were in the room visiting. CM informed him that he has a bed offer at [facility] in [place]. He stated that he feels that plans are being made without his input; CM discussed this at length with Narcisa, stating that there are recommendations for care from MD, PT and CM, but that he is the decision maker for his own care. He stated that he would consider SNF, but would like more input from MD and PT; CM spoke to PT who stated that he is doing very well. Their recommendation remains SNF vs HH PT. Narcisa's expressed concerns regarding him coming home too soon, stating that although he will work with PT at home, he does not complete the at home exercises that are asked of him. CM discussed his right to self determination, as well as the benefits of him following through with the PT work. Narcisa was not ready to make a decision about rehab today. CM will continue to follow. Discharge Potential Discharge Needs: Other (SNF) Anticipated Barriers to Discharge: Medical Status Patient/Family Education Needs: Review discharge instructions, discuss Ask Me Three Transportation: RCT Plan: Anticipate Narcisa will transfer to a SNF for short term rehab prior to returning return home once medically cleared. If he declines the bed offer (s) he receives, he will likely return home with new home health services for PT and OT. Transportation will be determined by disposition. Narcisa will follow up with the his community providers, his orthopedic surgeon and plan of care. CM will continue to follow and support discharge planning needs. SDOH(Care Management) Screening Will the Patient Participate in the Screening?: Unable to obtain Do you worry about having a steady place to live?: no Problems where you live: no known problems In the past 12 months, have you had to go without electric, gas, oil or water in your home?: no Have you or anyone in your house had to go without enough food to eat?: no Has lack of transportation kept you from medical appointments or from doing things needed for daily living?: no Has anyone in your support network made you feel unsafe for any reason?: no
--- NOTE | 2024-03-01 11:22 | PGE_ITS ---
Date of Service Date of service: 03/01/24 Time of Service: 12:20 Assessment and Plan Assessment and plan (1) Closed left hip fracture: Status: Acute Assessment and plan: Narcias is 3 days status post percutaneous screw fixation of a left femoral neck fracture. This was complicated by initial of surgery due to profound hypotension, likely from an anaphylactic episode given an elevated tryptase and the presentation and resolution of those symptoms. He will need outpatient allergy follow-up to determine his exact allergen for better preparation of any potential surgery in the future but also use of antibiotics as the 2 potential causative chemicals would be either cefazolin or rocuronium. As for the left hip, he continues to make good progress. Has been able to ambulate with some assistance. I find this to be quite good for this particular fracture pattern and is a good sign that he should be able to regain relatively normal function. However, we will to follow this closely. Discharge disposition based on physical therapy and family. Follow-up in my office in 4 weeks for repeat x- rays and evaluation. Weightbearing tolerated with assistive devices until follow-up. Mepilex dressing may be changed on discharge right 2 weeks. Qualifiers: Encounter type: initial encounter Qualified Code(s): S72.002A - Fracture of unspecified part of neck of left femur, initial encounter for closed fracture Subjective Subjective Interval history since last seen: Narcisa reports to be doing relatively well. He denies much pain. Has been able to mobilize with nursing and physical therapy. Currently awaiting discharge disposition. Exam Narrative Exam Narrative: Resting in the bed. No acute distress. Dressing about the left hip is clean dry and intact. Some resolving ecchymosis. No significant pain with hip internal and external rotation. Active ankle dorsiflexion, plantarflexion, EHL, FHL. Objective Last Vital Signs Temp 37 C 03/01/24 06:39 Pulse 72 03/01/24 06:39 Resp 18 03/01/24 06:39 BP 149/71 H 03/01/24 06:39 Pulse Ox 97 03/01/24 06:39 Laboratory Results - last 24 hr 03/01/24 05:40 WBC 6.76 RBC 3.92 L Hgb 11.8 L Hct 35.8 L MCV 91 MCH 30.1 MCHC 33.0 RDW 14.5 H Plt Count 139 MPV 9.3 Immature Gran % 0.6 Neutrophils % 65.1 Lymphocytes % 19.4 Monocytes % 7.1 Eosinophils % 7.4 Basophils % 0.4 Nucleated RBC % 0.0 Absolute Neutrophils 4.40 Absolute Lymphocytes 1.31 Absolute Monocytes 0.48 Absolute Eosinophils 0.50 Absolute Basophils 0.03 Sodium 140 Potassium 4.1 Chloride 106 Carbon Dioxide 28.3 Anion Gap 5.7 BUN 12 Creatinine 0.7 Est GFR (CKD-EPI 2020) 94.31 Glucose 103 Calcium 8.7 Magnesium 1.7 L Time Spent with Patient Time Spent with Patient: <25 minutes Time was spent: preparing to see the patient(eg.review tests), obtaining and/or reviewing separately otained hiistory and counseling the patient
--- NOTE | 2024-03-01 11:41 | PT.INTREAT ---
PT Notes Visit Reasons: Left Hip Fracture Physical Therapy Inpatient Treatment Note Date: 03/01/2024 Precautions: Fall. Standard. Per Dr. Beach WBAT with AD. Subjective: No verbalization of fatigue but needed seated rest of about 5 minutes before walking back to room for this session. Objective: General Observation: resting in bed. IV access trhough R UE. Abrasion on L knee. Mckeon catheter in place. TEDS on B legs/feet. Mental Status: Alert and oriented as to person, place, time, and purpose. Able to pay attention, focus, and respond appropriately. Pain: As above Vital Signs: Closely monitored by nursing staff Bed Mobility/Transfers: Minimal cueing provided for use of B hands as needed for support, movement sequence, AD management, and posture to reduce fall risk and minimize pain report Supine to sit contact guard assist Sit to stand contact guard assist with FWW Stand to sit with contact guard assist with FWW Bed to reclining chair ontact guard assist with FWW Gait: 200 feet +100 feet with use of FWW with contact guard assist and minimal verbal cueing for safe limb advancement, hand placement, AD management, and posture to minimize pain report and reduce fall risk. Patient conatinues to express concern over not being able to walk as he should. No LOB. No SOB. Balance: Static Sitting: Normal Dynamic Sitting: Normal Static Standing: Fair Dynamic Standing: Fair Assessment: Patient covered at least three times the distance today than yesterday using his FWW. Pain tolerance improved. Gait pattern more stable and less shaky. level of assiatnce provided way less today. Still emotional with hw much he needs to work on to get better. Patient will continue to need skilling on mobility progression, strength training, and balance improvement under short-term rehab or PT based on availability of caregivers and progress of patient towards goals. Plan of Care/Treatment Plan: 1-2x/day, 7 days/week x 1 week. Plan of care has been reviewed with the MEDICAL BILLING MANAGER providing the service under Physical Therapy direction. Initiate Physical Therapy intervention for pain management as needed, strengthening, bed mobility, transfers, gait, stairs, balance training, and use of assistive device. DISCHARGE RECOMMENDATIONS: [] Home with no services [] [] Home with services [specify] [] Home with outpatient PT [] [] SNF for continued rehabilitation [] [] Snf Care [] [] SNF versus LTC based on ability to participate and progress [] [X] Short-term rehab vs. HH PT based on progress towards goals TREATMENT CODE/TIME: [id number] x 32 minutes for 2 unit (10:42-11:14).
--- NOTE | 2024-03-01 12:42 | W.SPSTE ---
Date of service: 03/01/24 Time of Service: 12:20 Subjective Clinical (Bedside) Swallow Evaluation - Inpatient Speech Language Pathology Referred by: Kentrell Luis MD Start time: 12:20 End time: 12:40 Total patient contact: 20 min Referral Type: Routine Swallow Consult Precautions: Standard, DNI Reason for Referral/HPI: Narcisa is a 78 yo M with history of CVA admitted for hip replacement who had an anaphalaptic reaction to anaesthesia during first attempt at surgery, requiring a second attempt. He was consulted today for clinical swallow evaluation at bedside due to some difficulty swallowing pills. DATASTAGE CONSULTANT IMPRESSIONS & RECOMMENDATIONS: While patient does appear with some global oral weakness, his swallow function appears largely safe at this time. He primarily experiences some difficulty swallowing pills which he self-describes as more of a psychological problem/anxiety. He tolerates thin liquids without s/sx aspiration and was able to adequately masticate tender, bite size foods despite being partially edentoulous. He did demonstrate some wet vocal quality over the course of his meal, but this was resolved with cues for intermittent throat clearing. Recommend modest diet modification primarily for ease of mastication/energy conservation at this time. Nursing may try administering PO medications crushed in puree or whole in puree as tolerated to see if this is easier for him. FURTHER INPATIENT DATASTAGE CONSULTANT SERVICES: No further DATASTAGE CONSULTANT services indicated DISCHARGE RECOMMENDATIONS: No further DATASTAGE CONSULTANT services indicated/Please re-refer as needed Diet Recommendations: ? SOLIDS: 6-Soft & Bite-Sized Solids LIQUIDS: 0-Thin Liquids MEDICATIONS: Whole or Crushed as able With 0-Thin Liquids or With 4-Purees RISK MANAGEMENT: Level of Assistance/Supervision: Provide set-up assist with initial verbal reminders for aspiration precautions as below Positioning and environment: PO intake only when awake/alert? Reduce auditory and/or visual distractions when eating [place] upright for all PO intake. Oral hygiene Before/after PO intake Using friction with toothbrush on all oral structures as tolerated Strategies/Adaptations/Assistive Equipment: Small sips Small bites Multiple swallows Intermittent throat clear throughout meal as needed Education Provided to: Nursing Patient Family Topics Addressed: anatomy/physiology of swallowing mechanism definition and impacts of aspiration impact of current diagnoses on swallow function role of DATASTAGE CONSULTANT in management of swallow disorders overt s/sx to monitor for re: potential aspiration of food / liquids relationship between respiratory function and deglutition rationale and instruction for additional risk management strategies as below SUBJECTIVE: Patient received: alert/awake. Agreeable to evaluation. Pain Reported n/a Baseline Swallow Function: Patient denies swallowing difficulty prior to admission and eats a regular diet at baseline. HE states he had more difficulty after his stroke but these have resolved. He mainly just needs to be careful to choose tender foods due to missing dentition. OBJECTIVE Patient positioning: As upright as possible using HOB/bed tilt controls Oral care: Reported recently completed Respiratory status: Room air, Tolerates well without s/sx dyspnea Orientation/Mental status: Oriented to self, Oriented to situation, Some perseveration on previous/unrelated events. Mildly agitated at times with family present. . Speech: WFL Oral Mechanism Examination: Dentition: Partial natural dentition , poor/fair condition Oral mucosa: WFL ? Cranial Nerve Assessment: CN V ? Trigeminal Facial Sensation WNL Jaw Strength/ROM WNL ?WNL CN VII- Facial WNL labial ROM, coordination. Mild reduced strength (cheek puff). WNL lingual sensation mild weak CN IX ? Glossopharyngeal WNL palatal elevation with phonation. No evidence of nasal emissions WNL CN X ? Vagus WNL Vocal quality and volume. Strong/sharp volitional cough WNL CX XII ? Hypoglossal Mild reduced lateral strength to resistance. mild weak PO Intake: Trials Assessed: IDDSI 0 Thin Liquids IDDSI 4 Puree Solid IDDSI 6 Soft & Bite Size Solid IDDSI 7 Regular Solid Oral Phase Findings: Difficulty chewing Pharyngeal Phase Findings: Mild wet voice with prolonged mastication ? Arabi Swallow Protocol Results: PASS Complete/uninterrupted without s/sx aspiration PLAN: No further DATASTAGE CONSULTANT services indicated at this time. Please re-refer as needed.
--- NOTE | 2024-03-01 15:12 | PT.INNT ---
PT Notes Visit Reasons: Left Hip Fracture 3 attempts this pm. Nurse Kerry reports ambulating with him around the elevators x2. He was napping, refused PT x2 stating that he was not done sleeping. WIll check in with him in am.
--- NOTE | 2024-03-01 17:39 | W.PC.ACHO ---
Registration Status: ADM IN Primary Language: Ukrainian Preferred Language: Ukrainian ED Information & Data Chief Complaint Fall/Non TraumaCriteria 02/25/24 13:35 Triage Note last night at 830-930pm fall 02/25/24 12:23 , pain to left hip Subjective on oxygen. left leg pain 02/25/24 12:31 from fall. Medical / Surgical History (Last Updated 02/26/24 @ 12:01 by Damian Arita) Seizure disorder as sequela of cerebrovascular accident Closed fracture of left proximal humerus (01/10/23) CVA (cerebral vascular accident) Lymphoma Prostate cancer Hypertension (Last Reviewed 02/26/24 @ 07:08 by Rao Bhandari MD) History of craniotomy Most Recent Vital Signs Temperature 37.7 C H 03/01/24 16:46 Temperature Source Temporal Artery Scan 03/01/24 16:46 Pulse 72 03/01/24 06:39 Pulse Rhythm Regular 03/01/24 16:47 Pulse 93 H 02/28/24 18:01 Respiratory Rate 18 03/01/24 06:39 Respiratory Effort Normal, Non-Labored 03/01/24 16:47 Respiratory Depth Normal 03/01/24 16:47 Respiratory Pattern Normal 03/01/24 16:47 Blood Pressure 149/71 H 03/01/24 06:39 Blood Pressure Mean 94 03/01/24 05:43 Blood Pressure Position Supine 02/27/24 09:04 Pulse Oximetry 97 03/01/24 06:39 Respiratory End-tidal CO2 33 02/28/24 14:00 Oxygen Delivery Method Room Air 03/01/24 06:39 Oxygen Flow Rate 0 03/01/24 06:39 Pain Level 0 03/01/24 06:39 Comment Pt denies hip pain. Pt states his Mckeon catheter is causing him discomfort. 02/28/24 07:25 Arterial Systolic 114 02/27/24 10:08 Arterial Diastolic 44 02/27/24 10:08 Arterial Mean 64 02/27/24 10:08 Allergies cefazolin Allergy (Severe, Verified 02/26/24 11:54) Anaphylaxis preoperative CV collapse, possible causative agent Iodinated Contrast Media Allergy (Verified 02/25/24 12:33) Skin Rash Rocuronium Allergy (Severe, Uncoded 02/29/24 15:00) Anaphylaxis Potential allergy, to be reviewed. Anaphylaxis during anesthetic event. Precautions Isolation Standard precaution 02/25/24 12:31 Active Medications Generic Name Dose Route Start Last Admin Trade Name Freq PRN Reason Stop Dose Admin Acetaminophen 1,000 mg 02/28/24 22:00 03/01/24 13:58 Acetaminophen 500 Mg Tab PO Not Given Q8H MERCEDES Acidophilus/Pectin 1 cap 02/26/24 08:30 03/01/24 09:25 Lactobacillus Acidophilus Cap PO 1 cap DAILY MERCEDES Administration Atorvastatin Calcium 80 mg 02/29/24 20:00 02/29/24 20:26 Atorvastatin 40 Mg Tab PO 80 mg QPM MERCEDES Administration Celecoxib 200 mg 02/29/24 08:30 03/01/24 09:25 Celecoxib 200 Mg Cap PO 200 mg BID MERCEDES Administration Cholecalciferol 1,000 units 02/26/24 08:30 03/01/24 09:25 Cholecalciferol (Vitamin D3) 1,000 Unit Tab PO 1,000 units Q48H MERCEDES Administration Docusate Sodium 100 mg 02/25/24 20:00 03/01/24 09:24 Docusate Sodium 100 Mg Cap PO 100 mg BID MERCEDES Administration Enoxaparin Sodium 30 mg 02/25/24 20:00 02/29/24 20:27 Enoxaparin 30 Mg/0.3 Ml Syr SC 30 mg Q24H MERCEDES Administration Magnesium Gluconate 500 mg 02/29/24 16:30 03/01/24 09:25 Magnesium Gluconate 500 Mg Tab PO 500 mg DAILY MERCEDES Administration Melatonin 3 mg 02/25/24 20:00 02/29/24 20:27 Melatonin 3 Mg Tab PO 3 mg HS MERCEDES Administration Patient's Own 4 each 02/25/24 20:00 03/01/24 09:26 Medication ( PO 4 each Lacosamide 50 Mg BID MERCEDES Administration Tablet) Potassium Chloride 10 meq 02/26/24 08:30 03/01/24 09:25 Potassium Chloride 10 Meq Tabcr PO 10 meq DAILY MERCEDES Administration Sodium Chloride 0 ml 02/25/24 16:14 02/29/24 04:13 Normal Saline Flush 10 Ml Syr IVP 50 ml PRN PRN Administration Sodium Chloride 0 ml 02/25/24 20:00 03/01/24 10:55 Normal Saline Flush 10 Ml Syr IVP 20 ml BID MERCEDES Administration Tamsulosin HCl 0.4 mg 02/25/24 20:00 03/01/24 09:25 Tamsulosin 0.4 Mg Capcr PO 0.4 mg BID MERCEDES Administration Tramadol HCl 50 mg 02/29/24 05:21 02/29/24 09:42 Tramadol 50 Mg Tab PO 50 mg Q4H PRN PRN Administration IV IV Catheter Type [Right Saline Lock Forearm] IV Catheter Type [Left Upper Saline Lock arm] IV Catheter Type [Right IJ triple lumen Internal Jugular] IV Catheter Type [Left Forearm Saline Lock ] IV Catheter Type [Right Saline Lock Antecubital] IV Catheter Gauge [Right 18 Forearm] IV Catheter Gauge [Left Upper 18 arm] IV Catheter Gauge [Left 18 Forearm] IV Catheter Gauge [Right 20 Antecubital] Diet Orders Category Date Time Status Regular/Normal [DIET] Nutrition 03/01/24 Dinner Active Diagnostics 03/01/24 Range/Units 05:40 WBC 6.76 (4.4-10.8) 10^3/uL RBC 3.92 L (4.36-5.78) 10^6/uL Hgb 11.8 L (13.5-17.5) g/dL Hct 35.8 L (40.0-50.0) % MCV 91 (80-95) fL MCH 30.1 (27.0-33.0) pg MCHC 33.0 (32.0-36.0) % RDW 14.5 H (11.8-14.1) % Plt Count 139 (130-400) 10^3/uL MPV 9.3 (8.0-11.0) fL Immature Gran % 0.6 % Neutrophils % 65.1 % Lymphocytes % 19.4 % Monocytes % 7.1 % Eosinophils % 7.4 % Basophils % 0.4 % Nucleated RBC % 0.0 (0.0-0.3) % Absolute Neutrophils 4.40 (1.2-6.7) 10^3/uL Absolute Lymphocytes 1.31 (1.2-3.4) 10^3/uL Absolute Monocytes 0.48 (0.1-0.8) 10^3/uL Absolute Eosinophils 0.50 (0.0-0.7) 10^3/uL Absolute Basophils 0.03 (0.0-0.2) 10^3/uL Sodium 140 (136-145) mmol/L Potassium 4.1 (3.5-5.1) mmol/L Chloride 106 (98-107) mmol/L Carbon Dioxide 28.3 (21.0-32.0) mmol/L Anion Gap 5.7 (3-11) mmol/L BUN 12 (7-18) mg/dL Creatinine 0.7 (0.70-1.30) mg/dL Est GFR (CKD-EPI 2020) 94.31 (mL/min/1.73m2) Glucose 103 (74-106) mg/dL Calcium 8.7 (8.5-10.1) mg/dL Magnesium 1.7 L (1.8-2.4) mg/dL [id number] Documentation Fingerstick Glucose Start: 02/26/24 06:45 Freq: Status: Inactive Protocol: Activity Type Activity Date Activity User E-sign Co-sign Detail Recorded Client Recorded Date Recorded By Document 02/26/24 06:42 BKG DAEMON(3) NVT-BG05 02/26/24 06:45 BKG DAEMON(4) Intake and Output - 24 Hour Total 02/25/24 12:08 thru 03/01/24 12:00 Intake Total 7706.667 Output Total 8295 Balance -588.333 Weight 53.6 kg Intake: IV 5466.667 Oral 2240 Output: Urine 8295 Other: Urine Color Yellow Urine Appearance Clear Urine Odor None Comment incontinent of large amt urine in depends and on sheets. am care done and all linens changed Emesis Description None Voiding Methods Diaper Urinary Catheter Urinary Catheter Date of 02/25/24 Insertion [Uretheral (Mckeon)] Urinary Catheter Date of 02/25/24 Insertion [Uretheral (Mckeon)] Time of insertion [Uretheral ( 20:48 Mckeon)] Time of insertion [Uretheral ( 20:48 Mckeon)] Falls Risk Assessment History of Falls Admit Due to Fall 02/25/24 18:34 Contributing Factors Impairments,Incontinence 02/25/24 18:34 Ambulatory Aids Uses ambulatory device + 02/25/24 18:34 Tubes/Lines None 02/25/24 18:34 Gait Evaluation W/any additional score 02/25/24 18:34 Cognition No cognitive impairment 02/25/24 12:36 Fall Total Score 81 02/25/24 18:34 Level of Risk High Risk 07/05/24 18:34 Problems (Last Updated 02/26/24 @ 12:01 by Damian Arita) History of posttraumatic stress disorder (PTSD) (Acute) Discharge planning issues (Acute) Tooth avulsion (Acute) DVT prophylaxis (Acute) Smoker (Acute) Atherosclerosis of artery (Acute) Abdominal aortic aneurysm (AAA) (Acute) Thoracic aortic aneurysm (Acute) Thoracic aorta atherosclerosis (Acute) Closed left hip fracture (Acute) Notes 03/01/24 02:54 Nursing Notes by Vicky Reeves coughting productively but swallowing expectorate. taliing to himself, not really awake. when asked if he needed anything shakes his head no. Initialized on 03/01/24 02:54 - END OF NOTE 02/27/24 01:05 Nursing Notes by Mamta Cobb Nursing Note:Patient rang call mccracken and thought the light from the SpO2 sensor a lit cigarette, A&O x 3, will spot check SpO2 to prevent reoccurrence. Initialized on 02/27/24 01:05 - END OF NOTE 02/26/24 08:19 Nursing Notes by Chris Richardson Nursing Note: Reviewed meds with anesthesia in patient's room prior to transfer, and morning medications were held as directed. Patient was transferred to [facility] TREJO in preop area 7:43, where report was given at bedside. Initialized on 02/26/24 08:19 - END OF NOTE 02/25/24 16:24 Nursing Notes by Charleen Aden Nursing Note: arrived from ER alert and orientated x4, denies pain but reports some slight discomfort, mostly because Im in the hospital left elbow skin tear noted on arrival Initialized on 02/25/24 16:24 - END OF NOTE v v v v v v v v v Sending and/or Receiving Nurses: Please use comment section below to note any information pertinent to the patient hand-off not included above. Information / Comments: Post-op day 2 hip repair, walking with SBA, vitals are stable. Report received from: Rema Carrillo RN
[2024-03-01] MEDS: Atorvastatin 40 MG TAB 80 MG PO (20:36)
[2024-03-01] MEDS: Melatonin 3 MG TAB PO (20:36)
[2024-03-01] MEDS: Enoxaparin 30 MG/0.3 ML SYR SC (20:36)
[2024-03-02 08:00] VITALS: BP 154/73; PULSE 52; RESP 18; TEMP 36.2; O2SAT 96; O2SAT 97
[2024-03-02] MEDS: Magnesium Gluconate 500 MG TAB PO (08:03)
[2024-03-02] MEDS: Celecoxib 200 MG CAP PO ×2 (08:04→20:24)
[2024-03-02] MEDS: Docusate Sodium 100 MG CAP PO ×2 (08:04→20:24)
[2024-03-02] MEDS: Tamsulosin 0.4 MG CAPCR PO ×2 (08:04→20:24)
[2024-03-02] MEDS: Lactobacillus Acidophilus CAP 1 CAP PO (08:04)
[2024-03-02] MEDS: Potassium Chloride 10 MEQ TABCR PO (08:04)
[2024-03-02] MEDS: Normal Saline Flush 10 ML SYR IVP ×2 (08:05→20:25)
--- NOTE | 2024-03-02 09:51 | PT.INTREAT ---
PT Notes Visit Reasons: Left Hip Fracture Inpatient Physical Therapy Treatment Note [facility] Date: 03/02/24 PRECAUTIONS:Fall. Standard. Per Dr. Beach WBAT with AD. SUBJECTIVE: Pt reports he has been up a couple of times to go to the rest room. OBJECTIVE: Therapeutic Activities (64142d[1]): Direct one-on-one instruction in dynamic activities to improve functional performance. ? BED MOBILITY/TRANSFERS? Supine-sit: SBA? Sit-supine: SBA ? Sit-stand: SBA ? Stand-sit: SBA ? Provided skilled cues and instruction on performance and technique throughout. Gait Training (64569u[]): Direct one-on-one instruction and skilled instruction in: ? GAIT? Assistive Device: FWW ? Weight bearing: WBAT Assist: SBA ? Distance:? From bed to door and back to bed ? Therapeutic Exercises (95594q[1]): Direct one-on-one instruction in therapeutic exercises to develop strength, endurance, range of motion and flexibility. ? Exercises ? Ankle pumps x 10 Q.S. x 10 Heel slides UE Rowing x 10 Shoulder flexion x 10 ASSESSMENT:? Pt was fatigued fairly quickly which he made comments about. Pt did require rests and slow pace during exercises. PLAN: Cont as per PT POC. TREATMENT CODE/TIME: 9:20-9:50 (30) TA TP DISCHARGE RECOMMENDATION: []
--- NOTE | 2024-03-02 11:56 | PT.INTREAT ---
PT Notes Visit Reasons: Left Hip Fracture Inpatient Physical Therapy Treatment Note [facility] Date: 03/02/24 PRECAUTIONS:Fall. Standard. Per Dr. Beach WBAT with AD. SUBJECTIVE: Pt states that he is not getting up. States that exercises were no problem and he will not complete them again today. OBJECTIVE: Therapeutic Activities (59915h[1]): Direct one-on-one instruction in dynamic activities to improve functional performance. ? BED MOBILITY/TRANSFERS? Attempted to engage patient for transfers, bed exercises and ambulation, all met with refusal. Demonstrates signs of agitation, avoiding eye contact and intermittently raising voice. Requests assist for scooting up in bed; cued for participation with slow intermittent movements. Eventually able to ?scoot up in bed sufficiently for positioning, with cues only, no physical assist. ? Provided multiple opportunities for participation, each of which was refused. ? ASSESSMENT:?Very limited participation. Denies significant pain, but refuses transfers or ambulation today. Per his , his mobility is poor at baseline and she does not feel she can care for him at home. Recommend d/c to SNF for mobility gains. PLAN: Cont as per PT POC. Will attempt mobilization tomorrow. TREATMENT CODE/TIME: 7346-7782 (20) TA DISCHARGE RECOMMENDATION: SNF Taya Etienne, PT, DPT [facility]
[2024-03-02 16:00] VITALS: BP 114/55; PULSE 61; RESP 18; TEMP 36.8; O2SAT 92
--- NOTE | 2024-03-02 18:02 | PGE_ITS ---
Date of Service Date of service: 03/02/24 Time of Service: 18:02 Assessment and Plan Assessment and plan (1) Closed left hip fracture: Status: Acute Assessment and plan: POD #3 Cannulated screw fixation of proximal left femur fracture 02/28/2024 Continue physical therapy, plan for dc to SNF tomorrow Qualifiers: Encounter type: initial encounter Qualified Code(s): S72.002A - Fracture of unspecified part of neck of left femur, initial encounter for closed fracture (2) Anaphylactic reaction: Status: Resolved Assessment and plan: Patient experienced severe hypotension perioperatively during the first attempt at surgical repair of his hip fracture and was felt to be secondary to allergic reaction either to rocuronium or due to Ancef. He recovered quite well with short term use of epinephrine and steroids. Tryptase level was elevated indicative of an allergic reaction. He should have allergy referral upon discharge. Qualifiers: Encounter type: initial encounter Qualified Code(s): T78.2XXA - Anaphylactic shock, unspecified, initial encounter (3) Abdominal aortic aneurysm (AAA): Status: Acute Assessment and plan: should be monitored q6 months Qualifiers: Abdominal aorta location: infrarenal aorta Presence of rupture: without rupture Qualified Code(s): I71.43 - Infrarenal abdominal aortic aneurysm, without rupture (4) Seizure disorder as sequela of cerebrovascular accident: Assessment and plan: On lacosamide, continue. No seizure-like events. Patient follows w/ Dr. Garcia in [facility]. (5) History of posttraumatic stress disorder (PTSD): Status: Acute Assessment and plan: patient declines to try any antianxiety or antidepressants (6) Smoker: Status: Acute Assessment and plan: currently denies nicotine replacement therapy. Dr. Arita has discussed with him regarding need to quit. Patient apparently is contemplating this. (7) Hypokalemia: Status: Resolved Assessment and plan: resolved. continue replacement and monitor (8) Thoracic aortic aneurysm: Status: Acute Assessment and plan: Diagnosed in 2021 when borderline at 4cm (aneursym typically defined as >4cm). [facility] Aortic root was reported as normal size on his echo. He has mild and trace of AI but normal LV function. He should continue to have this [facility] the [facility] Qualifiers: Thoracic aorta location: ascending aorta Presence of rupture: without rupture Qualified Code(s): I71.21 - Aneurysm of the ascending aorta, without rupture (9) DVT prophylaxis: Status: Acute Assessment and plan: on LMWH, patient to be dc on aspirin 81 mg bid for next 30 days (10) Discharge planning issues: Status: Acute Assessment and plan: dc to SNF as patient has now agreed to short term stay for rehab. Subjective Subjective Interval history since last seen: Narcisa has finally consented to going to SNF for rehab. He has been reluctant but understands that this would be the best chance for him to make as complete a recovery as possible and would hopefully enable him to do more for himself and be less dependent on his . I met with him this afternoon while his daughter Bertha was there. Exam Narrative Exam Narrative: Alert, oriented, he was talking on his phone w/ his son while Bertha was waiting in the [place] Left leg has improved range of motion, good DF and PF at the foot and knee extension and flexion, skin around the dressing looks clean, nonindurated and ecchymosis is hardly noticeable, minimal tenderness to palpation over the wound Objective Last Vital Signs Temp 36.8 C 03/02/24 16:00 Pulse 61 03/02/24 16:00 Resp 18 03/02/24 16:00 BP 114/55 L 03/02/24 16:00 Pulse Ox 92 03/02/24 16:00 Laboratory Results - last 24 hr 02/26/24 09:35 Tryptase 18.8 H Time Spent with Patient Time Spent with Patient: <25 minutes Time was spent: counseling the patient and care coordination
[2024-03-02 20:11] VITALS: BP 106/66; PULSE 66; RESP 18; TEMP 36.6; O2SAT 93
[2024-03-02] MEDS: Melatonin 3 MG TAB PO (20:23)
[2024-03-02] MEDS: Atorvastatin 40 MG TAB 80 MG PO (20:23)
[2024-03-02] MEDS: Senna TAB 1 TAB PO (20:23)
[2024-03-02] MEDS: Psyllium PKT 1 EACH PO (20:24)
[2024-03-02] MEDS: Enoxaparin 30 MG/0.3 ML SYR SC (20:24)
[2024-03-02] MEDS: Polyethylene Glycol 3350 17 GM PACKET PO (20:24)
[2024-03-02] MEDS: Bisacodyl 10 MG SUPP PR (20:25)
[2024-03-03 07:06] VITALS: BP 136/88; PULSE 68; RESP 18; TEMP 36.4; O2SAT 94
[2024-03-03] MEDS: Celecoxib 200 MG CAP PO (09:07)
[2024-03-03] MEDS: Cholecalciferol (Vitamin D3) 1,000 UNIT TAB 1000 UNITS PO (09:07)
[2024-03-03] MEDS: Docusate Sodium 100 MG CAP PO (09:07)
[2024-03-03] MEDS: Potassium Chloride 10 MEQ TABCR PO (09:07)
[2024-03-03] MEDS: Senna TAB 1 TAB PO (09:07)
[2024-03-03] MEDS: Lactobacillus Acidophilus CAP 1 CAP PO (09:07)
[2024-03-03] MEDS: Tamsulosin 0.4 MG CAPCR PO (09:07)
[2024-03-03] MEDS: Magnesium Gluconate 500 MG TAB PO (09:07)
[2024-03-03] MEDS: Normal Saline Flush 10 ML SYR IVP (09:11)
--- NOTE | 2024-03-03 09:25 | PDOC.CMDIS ---
Date of service: 03/03/24 Time of Service: 09:25 LACE Index Scoring Tool Questions: Length of Stay (in days): 7 - 13 Was the patient admitted via the E.D.?: Yes Comorbidities: Cerebrovascular Disease and Any Tumor E.D. Visits: 2 Answers: Total Score: 13 Risk of Readmission: High Risk Care Management Discharge Plan Reason for Hospitalization: fractured hip Discharge Plan: Narcisa will transfer to [facility] for short term rehab prior to returning return. He will transport via [facility] and [facility] follow up with the his community providers, his orthopedic surgeon and plan of care. Patient/Family Education Needs: Review discharge instructions, activity, limitations and discuss Ask Me Three Services Needed at Discharge: [facility] SDOH Health Related Social Needs: No Data to Display
--- NOTE | 2024-03-03 10:44 | W.NUTRFU ---
Date of service: 03/03/24 Time of Service: 08:30 Nutrition Note NOTE: Pt asleep on visit and on 2 attempts yesterday. He has been receiving Boost high calorie ONS BID to supplement po intake on soft and bite size consistencies with 1:1 assist. seems to be drinking at least a percentage of them according to nursing. PT was living at home and soon to be d/c'd to SNF. Low BMI noted and undesirable at his age due to increase risk of comorbidities. po intake inconsistent with his surgeries but seems to be improving with 100% of dinner and lunch yesterday. Estimated energy needs: 1562kcals and 69-86g protein (1.2-1.5/kg). 1800kcals for slow weight gain recommended. Anticipate SNF transfer today. If not, will continue to monitor weight, labs, po intake and changes in nutrition status Time Spent in Nutritional Counseling and Treatment: 5 min
--- NOTE | 2024-03-03 12:03 | PTTR_ITS ---
PT Notes Visit Reasons: Left Hip Fracture Date: 03/03/24 PRECAUTIONS:Fall. Standard. Per Dr. Beach WBAT with AD. SUBJECTIVE: Pt in bed sleeping when approached for therapy this morning, pt reports he feels tired but is ok to participate with session. OBJECTIVE: Therapeutic Activities 45877: Direct one-on-one instruction in dynamic activities to improve functional performance. ?? ? BED MOBILITY/TRANSFERS? Supine-sit: Supervision ? Sit-supine: Supervision? Sit-stand: Supervision? Stand-sit: Supervision? Provided skilled cues and instruction on performance and technique throughout. Gait Training 23334: Direct one-on-one instruction and skilled instruction in: GAIT? Assistive Device: FWW ? Weight bearing: WBAT Assist: SBA ? Distance:? 60', 20'? Therapeutic Exercises 12320: Direct one-on-one instruction in therapeutic exercises to develop strength, endurance, range of motion and flexibility. Exercises Ankle pumps x 10 Q.S. x 10 Heel slides UE Rowing x 10 Shoulder flexion x 10 ASSESSMENT:? Pt reportrs he feels tired after gait training and exercise, looking forward to DC to SNF this afternoon ([facility]/[place]) PLAN: DC to SNF ([facility]/[place]) TREATMENT CODE/TIME: 31266v6 15mins (11:40-11:55am)
--- NOTE | 2024-03-03 12:59 | DSE_ITS ---
Date of service: 03/03/24 Time of Service: 12:59 DS: Diagnosis Discharge Diagnosis (1) Closed left hip fracture: Status: Acute Asessment and Plan: Status post Screw fixation of left proximal femur fracture on 02/28/[address] Rao Bhandari. Weightbearing as tolerated with appropriate assistive devices such as front wheel walker. Follow-up with Dr. Bhandari in 4 weeks. Continue DVT prophylaxis with 81 mg aspirin twice daily (2) Anaphylactic reaction: Status: Resolved Asessment and Plan: Patient had a anaphylactic reaction causing severe hypotension associated with infusion of Ancef as well as rocuronium. Recommend the patient see an hospice care transitions coordinator to have further allergy testing to determine the specific drug reaction in order to avoid future reactions. Of note prior to Ancef patient had been treated with ceftriaxone without any reaction. Allergic reaction responded quickly to epinephrine and steroids. Serial EKG and troponins were checked and no acute coronary ischemia was found. He was monitored overnight in the intensive care unit with no abnormal sequelae. Echocardiogram was obtained on 02/28/2024 showed normal left ventricular wall size and thickness with an LVEF of 60% no wall motion abnormalities. RV was normal size and function. He has aortic valve calcification with mild aortic stenosis with a mean gradient of 10 mm and a trace of aortic regurgitation. He has mild mitral regurgitation (3) Abdominal aortic aneurysm (AAA): Status: Chronic Asessment and Plan: Last CT scan of the abdomen from December 2023 indicates aneurysm size of 4.6 cm. (4) Seizure disorder as sequela of cerebrovascular accident: Asessment and Plan: Chronically treated with lacosamide 200 mg twice daily. (5) History of posttraumatic stress disorder (PTSD): Status: Chronic Asessment and Plan: Patient declines any medications for agitation or anxiety or depression (6) Smoker: Status: Chronic Asessment and Plan: Patient has expressed some interest in quitting smoking but declined any nicotine replacement therapy during his hospitalization. (7) Hypokalemia: Status: Resolved Asessment and Plan: Patient experienced hypokalemia during his hospitalization which was corrected with oral supplementation. (8) Thoracic aortic aneurysm: Status: Acute (9) DVT prophylaxis: Status: Acute Asessment and Plan: Continue aspirin 81 mg twice daily for the next month (10) Discharge planning issues: Status: Acute Asessment and Plan: Discharge to [facility] in [facility] for continued aggressive skilled rehab with a goal for discharge home with outpatient physical therapy Discharge Plan Disposition Patient Disposition: [facility] Facility(SNF) Condition: Improving Discharge Details Reason For Visit: Left Hip Fracture Admit Date/Time: 02/25/24 15:23 Admit Provider: Damian Arita Attending Provider: Damian Arita Primary Care Provider: Elyse Gutierrez Hospital Course Hospital Course: 78-year-old male with multiple medical comorbidities including history of previous stroke with subsequent seizures controlled with lacosamide send history of prostate cancer renal stent, abdominal aortic aneurysm, thoracic aortic aneurysm with sustained a mechanical fall 18 hours prior to admission with no loss of consciousness. He was found to have a left femur subcapital fracture with nondisplacement. Patient was admitted to the hospitalist service with [facility] consultation with Dr. Rao Bhandari. First attempted surgery was made on 02/26/2024 and had to be aborted because of severe hypotension that occurred after induction having been given rocuronium but also while prophylactic antibiotics were infusing including Ancef. Tryptase level was sent off and came back elevated at 22.8 suggestive of an anaphylactic reaction. His hypotension was treated with epinephrine and patient was admitted to the intensive care unit overnight. By the time the patient came up from PACU to the intensive care unit his blood pressure had stabilized. He had no further sequela I from his reaction. Patient went to surgery again on 02/28/2024 and had successful surgery with cannulated screw fixation of his left proximal femur fracture on 02/28/2024. With minimal blood loss and no complications. Patient did well postoperatively. Patient was evaluated and treated by physical therapy it was felt that he would benefit from a short-term course of a half-way facility where he can receive intensive physical therapy to get him stronger and improve his gait and balance prior to discharge home. Postoperatively his labs are followed and a stable anemia was noted with hemoglobin 11.8 which remained stable. Patient's pain was controlled w/ celecoxib and acetaminophen although tramadol was ordered but he did not require this as his left hip pain was well controlled after surgical repair. CM and P.T. recommended short term stay at SNF for continued rehab. Patient was agreeable to going to SNF. Please have patient follow up w/ Dr. Bhandari in 4 weeks. Patient should be on aspirin 81 mg twice a day for next month for DVT prophylaxis. Home Meds and New Rx's Prescriptions: New aspirin 81 mg tablet,delayed release (DR/EC) 81 mg PO BID 30 Days Qty: 60 0RF acetaminophen 500 mg Tablet 1,000 mg PO Q8H PRN PRNQty: 0 0RF docusate sodium [Colace] 100 mg Capsule 100 mg PO BID Qty: 0 0RF sennosides [Senokot] 8.6 mg Tablet 8.6 mg PO BID Qty: 60 0RF tramadol 50 mg Tablet 50 mg PO Q4H PRN PRNQty: 30 0RF polyethylene glycol 3350 17 gram Powder In Packet 17 g PO BID Qty: 0 0RF potassium chloride 10 mEq Tablet,Er Particles/Crystals 10 meq PO DAILY Qty: 0 0RF Metamucil Sugar-Free (aspart) 3.4 gram/5.8 gram Powder 1 pwd PO BID Qty: 0 0RF magnesium gluconate 27 mg magnesium (500 mg) Tablet 500 mg PO DAILY Qty: 0 0RF bisacodyl 10 mg Suppository 10 mg MN DAILY PRN PRNQty: 0 0RF celecoxib 200 mg Capsule 200 mg PO BID 7 Days Qty: 14 0RF ferrous sulfate [Feosol] 325 mg (65 mg iron) tablet 325 mg PO DAILY Qty: 30 0RF Continued melatonin 3 mg Tablet 3 mg PO HS lactobacillus combo #5 150 mg (2 billion cell) Tablet,Delayed Release (Dr/Ec) 1 mg PO DAILY Patient Comments: not taking atorvastatin 80 mg Tablet 80 mg PO QPM tamsulosin 0.4 mg Capsule 0.4 mg PO BID Patient Comments: usually takes after meal cholecalciferol (vitamin D3) [Vitamin D3] 25 mcg (1,000 unit) Tablet 25 mcg PO .qod lacosamide 100 mg Tablet 200 mg PO BID Discontinued Bacillus coagulans-inulin 1 billion-250 cell-mg Capsule 1 cap PO DAILY midazolam 5 mg/spray (0.1 mL) [place],Non-Aerosol 1 spray INTRANASAL ONCE Rx Instructions: as a single dose; may repeat dose in other nostril after 10 minutes if inadequate response potassium chloride [Klor-Con M10] 10 mEq tablet,ER particles/crystals 10 meq PO DAILY Discharge Instructions Instructions: Femur Fracture (DC) Referrals: Rao Bhandari MD [ [facility] STAFF PHYSICIAN] - (needs follow up appointment in 4 weeks Office will call pt to make a follow up ) Activity:: see Dr. Bhandari note Equipment/Supplies:: Walker Diet:: Normal Diet Discharge Orders Discharge Orders: Discharge Order (Routine); Ordered 03/03/24 Ordered By: Kentrell Luis DS: Summary Time Spent with Patient providing and/or coordinating discharge services: Greater than 30 minutes Status at Discharge Functional status at discharge: uses cane/walker Overall status at discharge: patient is progressing back to baseline Mental Status: mental status grossly normal Speech and Movement: speech and movement normal Mood: congruent mood Affect: normal affect Quality:SDOH Health Related Social Needs: No Data to Display Exam Narrative Exam Narrative: Alert, oriented to person/place/circumstances and time Lungs: clear Heart: RRR, soft systolic murmur over apex Abdomen: soft, nontender Left leg has improved range of motion, good DF and PF at the foot and knee extension and flexion, skin around the dressing looks clean, nonindurated and ecchymosis is hardly noticeable, minimal tenderness to palpation over the wound Psych Mental Status: mental status grossly normal Speech and Movement: speech and movement normal Mood: congruent mood Affect: normal affect DS: Data Vitals/I&O Vitals and I&O: Vital Signs Temperature 36.4 C L 03/03/24 07:06 Temperature Source Tympanic 03/03/24 07:06 Pulse 68 03/03/24 07:06 Pulse Rhythm Regular 03/03/24 12:38 Pulse 93 H 02/28/24 18:01 Respiratory Rate 18 03/03/24 07:06 Respiratory Effort Normal, Non-Labored 03/03/24 12:38 Respiratory Depth Normal 03/03/24 12:38 Respiratory Pattern Normal 03/03/24 12:38 Blood Pressure 136/88 03/03/24 07:06 Blood Pressure Mean 91 03/01/24 16:36 Blood Pressure Position Supine 02/27/24 09:04 Pulse Oximetry 94 03/03/24 07:06 Respiratory End-tidal CO2 33 02/28/24 14:00 Oxygen Delivery Method Room Air 03/03/24 07:06 Oxygen Flow Rate 0 03/03/24 07:06 Pain Level 0 03/03/24 07:06 Comment Pt denies hip pain. Pt states his Mckeon catheter is causing him discomfort. 02/28/24 07:25 Arterial Systolic 114 02/27/24 10:08 Arterial Diastolic 44 02/27/24 10:08 Arterial Mean 64 02/27/24 10:08 Intake & Output 03/02/24 03/03/24 03/03/24 23:59 11:59 23:59 Intake Total 480 / 750 Output Total 200 / 350 75 / 75 Balance 280 / 400 -75 / -75 Weight 57.6 kg Intake: Oral 480 / 720 Output: Urine 200 / 350 75 / 75 Other: Urine Color Yellow Light Juli Urine Appearance Clear Clear Clear Comment diaper wet and pt also urinated in toilet Stool Size Small Stool Characteristics Formed Brown Voiding Methods Urinal Incontinent PFSH All Active Problems (Updated 03/03/24 @ 13:14 by Kentrell Luis MD) History of posttraumatic stress disorder (PTSD) (Chronic) Discharge planning issues (Acute) Tooth avulsion (Acute) DVT prophylaxis (Acute) Smoker (Chronic) Atherosclerosis of artery (Acute) Abdominal aortic aneurysm (AAA) (Chronic) Thoracic aortic aneurysm (Acute) Thoracic aorta atherosclerosis (Acute) Closed left hip fracture (Acute) s/p percutaneous screw fixation (02/28/24) Medical History Seizure disorder as sequela of cerebrovascular accident s/p CVA/hemorrhage, h/o breakthrough in setting of UTI/fever Closed fracture of left proximal humerus (01/10/23) CVA (cerebral vascular accident) Lymphoma Prostate cancer Hypertension Surgical History History of craniotomy for brain bleed Family History Father Personal history of malignant neoplasm prostate cancer Social History Smoking/Tobacco Use Status: Current every day Tobacco Type: cigarettes Smoking packs per day: 1 Smoking cigarettes per day: 20.0 Smoking risk assessment performed?: Yes Alcohol Intake: former Drug use: Never Substance use type: does not use Housing: house Current gender identity: male Do you feel safe at home: Yes Do you feel safe in your relationship?: Yes Time Spent with Patient Time Spent with Patient: 45-69 minutes Time was spent: preparing to see the patient(eg.review tests), ordering medications,tests, procedures, referring, communicating with other health patient care provider, indepentently interpreting results and care coordination
[2024-03-03 14:45] VITALS: BP 127/73; PULSE 54; RESP 16; TEMP 36.3; O2SAT 95
--- NOTE | 2024-03-03 15:33 | NUR.NOTE ---
Nursing Note: [facility] report given to MAYA Sorto. All questions answered. Patient will be brought by family.
== END 2024-03-03 15:45 | disposition skilled nursing facility (03) | DRG 481 ==
LOC: ER 15:26 → MS 16:36 → ICU 02-26 09:52 → MS 03-01 17:17
PROVIDERS: Internal Medicine; Nurse Practitioner Acute Care; Student in an Organized Health Care Education/Training Program; Admitting Provider Family Medicine; Emergency Provider Student in an Organized Health Care Education/Training Program; PCP Internal Medicine; Visit Provider Family Medicine
PROC: (CPT 27235; principal; 2024-02-26 08:00)
PROC: 0QS734Z Reposition Left Upper Femur with Internal Fixation Device, Percutaneous Approach (ICD-10-PCS; CPT 27235; principal; 2024-02-28 12:00)
DX: S72.012A Unspecified intracapsular fracture of left femur, initial encounter for closed fracture (principal); G40.802 Other epilepsy, not intractable, without status epilepticus; T88.6XXA Anaphylactic reaction due to adverse effect of correct drug or medicament properly administered, initial encounter; Z53.09 Procedure and treatment not carried out because of other contraindication; I70.0 Atherosclerosis of aorta; I71.21 Aneurysm of the ascending aorta, without rupture; I71.43 Infrarenal abdominal aortic aneurysm, without rupture; E87.6 Hypokalemia; I69.311 Memory deficit following cerebral infarction; F17.210 Nicotine dependence, cigarettes, uncomplicated; R82.81 Pyuria; E78.00 Pure hypercholesterolemia, unspecified; R53.1 Weakness; I10 Essential (primary) hypertension; T36.1X5A Adverse effect of cephalosporins and other beta-lactam antibiotics, initial encounter; Y92.234 Operating room of hospital as the place of occurrence of the external cause; Z85.72 Personal history of non-Hodgkin lymphomas; Z87.440 Personal history of urinary (tract) infections; Z85.46 Personal history of malignant neoplasm of prostate; W19.XXXA Unspecified fall, initial encounter; I69.398 Other sequelae of cerebral infarction; I08.0 Rheumatic disorders of both mitral and aortic valves
CPT/HCPCS: 36620; 36556; 76937; 27235 ×2; 00123; 36415; 71045; 73552; 80048; 80053; 82805; 83520; 85027; 92610; 96361; 96374; 97110; 97162; 97530; 99285; 71046; 72170; 73501; 73700; 74018; 81003; 81015; 83605; 83735; 84443; 84484; 85025; 85610; 85730; 87086; 93005; 93010; 93306; 99223; 99231; 99232; 99233; 99239; J0131; J0171; J0665; J0690; J0696; J0736; J0737; J1100; J1596; J1650; J1720; J1805; J2001; J2250; J2371; J2405; J2704; J3010; J3475; J3480

== ENCOUNTER 2024-04-21 11:04 | Outpatient (CLI) | payer OTHER, SELFPAY ==
--- NOTE | 2024-04-21 10:15 | DI.RAD_ITS ---
Exam(s) XR HIP LT AP LAT ONLY EXAM: XR HIP LT AP LAT ONLY CLINICAL HISTORY: s/p cannulated screw fixation. TECHNIQUE: 2D digital imaging was performed. COMPARISON: CR XR FEMUR LT from 02/25/2024 FINDINGS: 3 views There has been interval surgery with placement of 3 screws across the femoral neck subcapital fractur e site. There is stable position alignment. No further displacement. IMPRESSION: Stable satisfactory appearance DATA REPOSITORY: RADIATION DOSE DELIVERED:
== END 2024-04-21 11:05 | disposition home or self-care (01) ==
LOC: DIORS 11:05
PROVIDERS: PCP Internal Medicine; Referring Provider Internal Medicine; Visit Provider Physician Assistant
DX: S72.002D Fracture of unspecified part of neck of left femur, subsequent encounter for closed fracture with routine healing (principal); X58.XXXD Exposure to other specified factors, subsequent encounter
CPT/HCPCS: 73502

== ENCOUNTER 2024-05-02 02:24 | Outpatient (CLI) | payer MEDICARE, SELFPAY ==
[2024-05-02 10:23] LABS: Abs Immature Grans 0.01 10^3/uL (0.0-0.06); Absolute Basophil Count 0.02 10^3/uL (0.0-0.2); Absolute Eosinophil Count 0.27 10^3/uL (0.0-0.7); Absolute Monocyte Count 0.29 10^3/uL (0.1-0.8); Absolute Neutrophil Count 3.64 10^3/uL (1.2-6.7); Basophils % 0.4 %; HGB 13.8 g/dL (13.5-17.5); Immature Grans % 0.2 %; Lymphocytes % 22.1 %; MCH 30.5 pg (27.0-33.0); MCHC 32.1 % (32.0-36.0); MCV 95 fL (80-95); MPV 8.7 fL (8.0-11.0); Monocytes % 5.3 %; Platelet Count 147 10^3/uL (130-400); RBC 4.53 10^6/uL (4.36-5.78); RDW 15.3 % (11.8-14.1); RDW-SD 53.5 fL; WBC 5.43 10^3/uL (4.4-10.8)
[2024-05-02 11:05] LABS: ALT 13 U/L (16-63); AST 13 U/L (15-37); Albumin 3.3 g/dL (3.4-5.0); Alkaline Phosphatase 123 U/L (46-116); Anion Gap 4.5 mmol/L (3-11); BUN 8 mg/dL (7-18); Bilirubin, Total 0.35 mg/dL (0.2-1.0); CO2 34.5 mmol/L (21.0-32.0); Calcium 9.5 mg/dL (8.5-10.1); Chloride 103 mmol/L (98-107); Estimated GFR 77.04 (mL/min/1.73m2); Glucose 139 mg/dL (74-106); LDH 108 U/L (85-227); Potassium 4.2 mmol/L (3.5-5.1); Sodium 142 mmol/L (136-145); Total Protein 6.8 g/dL (6.4-8.2)
[2024-05-04 12:00] LABS: PSA, Ultrasensitive 0.12 ng/mL (<= 6.5)
== END 2024-05-02 02:25 | disposition home or self-care (01) ==
LOC: LBO 02:24
PROVIDERS: PCP Internal Medicine; Visit Provider Internal Medicine Hematology & Oncology
DX: C61 Malignant neoplasm of prostate (principal)
CPT/HCPCS: 36415; 80053; 84153; 83615; 85025

== ENCOUNTER 2024-05-24 19:08 | Emergency (ER) | payer OTHER, SELFPAY ==
[2024-05-24] VITALS (39 sets, daily range): BP systolic 121–166; BP diastolic 64–137; PULSE 61–77; RESP 18; TEMP 36.1; O2SAT 89–99
--- NOTE | 2024-05-24 19:15 | DI.RAD_ITS ---
Exam(s) XR PORTABLE CHEST AP EXAM: XR PORTABLE CHEST AP CLINICAL HISTORY: SOB TECHNIQUE: 2D digital imaging was performed. COMPARISON: CR,XR XR PORTABLE CHEST AP POST LINE from 02/26/2024 FINDINGS: LUNGS: Fibrotic changes. No evidence of infiltrate or pulmonary edema. No pleural abnormality seen. HEART: Normal size. AORTA: Normal diameter. BONES: Unremarkable for age. Soft tissues: Unremarkable. IMPRESSION: No acute findings. DATA REPOSITORY: RADIATION DOSE DELIVERED:
--- OUTSIDE RECORDS SUMMARY | 2024-05-24 19:16 | XMS_ITS | Continuity of Care Document ---
Author Name [facility] Organization [facility] Care Team Providers Care Pulp Roller Name Role Phone [facility] Unavailable Unavailable Problems Combined list of problems from Department of Defense and Veterans Affairs facilities. It does not include entries that were removed or entered in error. Problem Status Onset Date Problem Type Date of Resolution Comments Source AAA - Abdominal aortic aneurysm Active Condition Nov 18, 2017 Entered By: KYLAH CHAVEZ AEL Comment: 3.9cm June 2017 [facility] Alcohol dependence Active [facility] Bradycardia Active Condition [facility] Delirium Active Condition [facility] Depression Active Condition Jul 02 Entered By: NILAY NAQVI Comment: in context of admission to [facility] Jun 2021 [facility] Exposure to potentially hazardous substance Active Condition [facility] Family history of malignant neoplasm of breast Active Condition [facility] Family history of prostate cancer Active Condition [facility] Follicular non-Hodgkin lymphoma, small cleaved cell Active Condition [facility] Hypertension Active Condition [facility] Injury due to chemical exposure (SNOMED CT [id number]) Active Condition [facility] Non-traumatic subdural haemorrhage Active Condition [facility] Thoracic aortic aneurysm without rupture Active Condition Nov 18, 2017 Entered By: KYLAH CHAVEZ AEL Comment: 4.0cm June 2017 [facility] Tobacco dependence Active Condition [facility] Diagnosis: ICD-10-CM L89.43 Pressr ulcer of contig site of back, buttock and hip, stg 3 Active Diagnosis [facility] Diagnosis: ICD-10-CM L89.893 Pressure ulcer of other site, stage 3 Active Diagnosis Jorge A [facility] Diagnosis: ICD-10-CM Z71.3 Dietary counseling and surveillance Active Diagnosis [facility] Diagnosis: ICD-10-CM I71.40 Abdominal aortic aneurysm, without rupture, unspecified Active Diagnosis [facility] Diagnosis: ICD-10-CM N20.1 Calculus of ureter Active Diagnosis [facility] Diagnosis: ICD-10-CM L89.894 Pressure ulcer of other site, stage 4 Active Diagnosis [facility] Diagnosis: ICD-10-CM L89.890 Pressure ulcer of other site, unstageable [facility] Diagnosis: ICD-10-CM F01.A3 Vascular dementia, mild, with mood disturbance Active Diagnosis [facility] Diagnosis: ICD-10-CM N20.0 Calculus of kidney Active Diagnosis [facility] Diagnosis: ICD-10-CM Z48.89 Encounter for other specified surgical aftercare Active Diagnosis [facility] Diagnosis: ICD-10-CM Z01.818 Encounter for other preprocedural examination Active Diagnosis [facility] Diagnosis: ICD-10-CM Z68.1 Body mass index [BMI] 19.9 or less, adult Active [facility] Diagnosis: ICD-10-CM Z23 Encounter for immunization Active [facility] Diagnosis: ICD-10-CM 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 Active Diagnosis [facility] Diagnosis: ICD-10-CM R68.89 Other general symptoms and signs Active Diagnosis [facility] Diagnosis: ICD-10-CM Z51.89 Encounter for other specified aftercare Active Diagnosis [facility] Diagnosis: ICD-10-CM F32.9 Major depressive disorder, single episode, unspecified Active Diagnosis [facility] Diagnosis: ICD-10-CM Z87.440 Personal history of urinary (tract) infections Active [facility] Diagnosis: ICD-10-CM Z98.890 Other specified postprocedural states Active Diagnosis [facility] Diagnosis: ICD-10-CM Z04.9 Encounter for examination and observation for unsp reason Active [facility] Diagnosis: ICD-10-CM C67.9 Malignant neoplasm of bladder, unspecified Active Diagnosis [facility] Medications Combined list of outpatient medications from Department of Defense and Veterans Affairs facilities.Medications provided include 1) outpatient medications from the last 15 months, and 2) patient-reported medications. Medication Details Route Status Patient Instructions Prescription Expires Prescription Number Last Dispense Date Ordering Provider Order Date Order Qty Source ATORVASTATI N CA 40MG TAB ATORVAST ATIN CA 40MG TAB Active TAKE TWO TABLET(S ) BY MOUTH EVERY EVENING TO LOWER CHOLESTE ROL Apr 06, 2024 180 Apr 07, 2025 [id number] Apr 06, 2024 ASUNCION VELASQUEZ [facility] ORAL ACTIVE 04/07/2025 [id number] KATHARINE VELASQUEZ 2023 180 [facility] ATORVASTATI N CA 40MG TAB ATORVAST ATIN CA 40MG TAB Disconti nued TAKE TWO TABLET(S ) BY MOUTH EVERY EVENING TO LOWER CHOLESTE ROL May 10, 2023 180 May 10, 2024 [id number] Dec 10, 2023 LAUREN BILLY JR [facility] ORAL DISCONT INUED 05/10/2024 [id number] LAUREN BILLY 2022 180 [facility] ATORVASTATI N CA 40MG TAB ATORVAST ATIN CA 40MG TAB Disconti nued TAKE TWO TABLET(S ) BY MOUTH EVERY EVENING TO LOWER CHOLESTE ROL Mar 27, 2022 180 Mar 28, 2023 [id number] Mar 08, 2023 ERIN PRICE [facility] ORAL DISCONT INUED 03/28/2023 [id number] ELZA NOLAN 2021 180 [facility] CETIRIZINE HCL 10MG TAB CETIRIZI NE HCL 10MG TAB Active TAKE ONE TABLET BY MOUTH ONCE FOR IMAGING STUDY TAKE 1 HOUR PRIOR TO IMAGING STUDY. FOR IMAGING STUDY May 05, 2024 1 Jun 04, 2024 [id number] May 08, 2024 VIMAL STILES [facility] ORAL [facility] 06/04/2024 [id number] VIMAL FAM 2023 1 [facility] DIPHENHYDRA MINE HCL 50MG CAP DIPHENHY DRAMINE HCL 50MG CAP Disconti nued TAKE ONE CAPSULE BY MOUTH ONCE - TAKE ONE HOUR PRIOR TO CT FOR CT CONTRAST PROPHYLA XIS Nov 04, 2023 1 Dec 04, 2023 [id number] Nov 04, 2023 [facility]AL STILES [facility] ORAL DISCONT INUED BY MORAIMA Arora 12/04/2023 [id number] VIMAL FAM 2023 1 [facility] LACOSAMIDE 50MG TAB LACOSAMI DE 50MG TAB Active TAKE FOUR TABLETS BY MOUTH TWICE A DAY . MAY TAKE 2 EXTRA TABLETS (100MG) IF ANY UTI, FEVER OR ANY SURGICAL PROCEDUR E. Jan 24, 2024 240 Jul 26, 2024 [id number] Apr 28, 2024 MOISES TAMEZ [facility] ORAL ACTIVE 07/26/2024 [id number] CRISTAL DAVILA 2023 240 [facility] LACOSAMIDE 50MG TAB LACOSAMI DE 50MG TAB Disconti nued TAKE FOUR TABLETS BY MOUTH TWICE A DAY - MAY TAKE 2 EXTRA TABLETS (100MG) IF ANY UTI, FEVER OR ANY SURGICAL PROCEDUR E. *NOTE NEW STRENGTH /DIRECTI ONS* Jul 01, 2023 240 Jul 31, 2023 [id number] Jul 01, 2023 ASUNCION VELASQUEZ [facility] ORAL DISCONT INUED 07/31/2023 [id number] KATHARINE VELASQUEZ 2022 240 [facility] LACOSAMIDE 50MG TAB LACOSAMI DE 50MG TAB Disconti nued TAKE FOUR TABLETS BY MOUTH TWICE A DAY - MAY TAKE 2 EXTRA TABLETS (100MG) IF ANY UTI, FEVER OR ANY SURGICAL PROCEDUR E. *NOTE NEW STRENGTH /DIRECTI ONS* Dec 19, 2022 240 Jun 21, 2023 [id number] Jun 02, 2023 MOISES TAMEZ [facility] ORAL DISCONT INUED 06/21/2023 [id number] CRISTAL DAVILA 2022 240 [facility] LACOSAMIDE 50MG TAB LACOSAMI DE 50MG TAB TAKE FOUR TABLETS BY MOUTH TWICE A DAY MAY TAKE AN EXTRA TWO TABLETS IF ANY UTI,FEVE R, OR ANY SURGICAL PROCEDUR E Jul 15, 2023 240 January 15, 2024 [id number] January 01, 2024 NEHEMIAHPETER AUSTINGIO A [facility] ORAL 01/15/[id number]H ROAS ERGIO A 2022 240 [facility] LACTOBACILL US ACIDOPHILUS CAP LACTOBAC ILLUS ACIDOPHI RU CAP Active TAKE ONE CAPSULE BY MOUTH ONCE DAILY FOR DIGESTIV E CARE H/O UTI Apr 06, 2024 100 Apr 07, 2025 [id number] Apr 06, 2024 ASUNCION VELASQUEZ [facility] ORAL ACTIVE 04/07/2025 [id number] KATHARINE VELASQUEZ 2023 100 . [facility] LACTOBACILL US COMBO TAB LACTOBAC ILLUS COMBO TAB Disconti nued TAKE ONE TABLET BY MOUTH ONCE DAILY FOR GI FOR GI May 26, 2023 100 May 26, 2024 [id number] December 24, 2023 LAUREN BILLY JR [facility] ORAL DISCONT INUED 05/26/2024 [id number] LAUREN BILLY JR [address] [facility] MELATONIN 3MG CAP/TAB MELATONI N 3MG CAP/TAB Active TAKE ONE CAP/TAB BY MOUTH AT BEDTIME NEEDED FOR SLEEP Apr 06, 2024 120 Apr 07, 2025 [id number] Apr 06, 2024 ASUNCION VELASQUEZ [facility] ORAL ACTIVE 04/07/2025 [id number] KATHARINE VELASQUEZ [address] [facility] MELATONIN 3MG CAP/TAB MELATONI N 3MG CAP/TAB Disconti nued TAKE ONE CAP/TAB BY MOUTH AT BEDTIME NEEDED FOR SLEEP May 10, 2023 120 May 10, 2024 [id number] January 06, 2024 LAUREN BILLY JR [facility] ORAL DISCONT INUED 05/10/2024 [id number] LAUREN BILLY JR 2022 120 [facility] METHYLPREDN ISOLONE 32MG TAB METHYLPR EDNISOLO NE 32MG TAB Active TAKE ONE TABLET BY MOUTH TWICE A DAY GIVE 12 AND 2 HOURS PRIOR TO THE ADMINIST RATION OF CONTRAST MEDIA (LASSER PROTOCOL ) GIVE 12 AND 2 HOURS PRIOR TO THE ADMINIST RATION OF CONTRAST MEDIA (LASSER PROTOCOL ) CONTRAST ALLERGY May 05, 2024 2 Jun 04, 2024 [id number] May 08, 2024 VIMAL STILES [facility] ORAL ACTIVE 06/04/2024 [id number] VIMAL FAM 2023 2 [facility] METHYLPREDN ISOLONE 32MG TAB METHYLPR EDNISOLO NE 32MG TAB Disconti nued TAKE ONE TABLET BY MOUTH TWICE A DAY - TAKE 1 TABLET 12 HOURS AND 2 HOURS PRIOR TO THE ADMINSTR ATION OF CONTRAST MEDIA (LASSER PROTOCOL ) FOR CT CONTRAST PROPHYLA XIS Nov 04, 2023 2 Dec 04, 2023 [id number] Nov 04, 2023 VIMAL STILES [facility] ORAL DISCONT INUED BY PROVIDE R 12/04/2023 [id number] VIMAL FAM 2023 2 [facility] MIDAZOLAM 5MG/SPRAY SOLN,SPRAY, NASAL MIDAZOLA M 5MG/SPRA Y SOLN,SPR AY,NASAL Active SPRAY 1 SPRAY INTRANAS ALLY ONCE NEEDED FOR CONVULSI VE SEIZURE, MAY REPEAT ONCE IN 10 MINUTES IF ANOTHER SEIZURE May 18, 2024 2 Jun 17, 2024 [id number] May 18, 2024 Jeimy RODGERS [facility] NASAL ACTIVE 06/17/2024 [id number] KARINA RODGERS 2023 2 [facility] MIRTAZAPINE 15MG TAB MIRTAZAP INE 15MG TAB Disconti nued TAKE ONE TABLET BY MOUTH AT BEDTIME FOR DEPRESSI ON/MOOD FOR DEPRESSI ON Feb 25, 2023 90 Feb 26, 2024 [id number] Feb 25, 2023 DEDRA MEDINA [facility] ORAL DISCONT INUED 02/26/2024 [id number] ANTONIO MEDINA [facility] S 2022 90 [facility] NITROFURANT OIN MONOHYDRATE /MACROCRYST ALLINE 100MG CAP,SA NITROFUR ANTOIN MONOHYDR ATE/MACR OCRYSTAL LINE 100MG CAP,SA Disconti nued TAKE ONE CAPSULE BY MOUTH TWICE A DAY WITH MEALS TO PREVENT UTI - PLEASE START THIS MEDICATI ON THE MORNING OF WednesdayDECEMBER 09 IN PREPARAT ION FOR YOUR DECEMBER 15 UROLOGY PROCEDUR E. - PLEASE START THIS MEDICATI ON THE MORNING OF WednesdayDECEMBER 09 IN PREPARAT ION FOR YOUR DECEMBER 15 UROLOGY PROCEDUR E. TO PREVENT UTI Dec 02, 2023 14 January 01, 2024 [id number] Dec 05, 2023 CORBY OSORIO [facility] ORAL DISCONT INUED BY MORAIMA Arora 01/01/2024 [id number] Joellen OSORIO 2023 14 [facility] POTASSIUM CHLORIDE 10MEQ TAB,SA POTASSIU M CHLORIDE 10MEQ TAB,SA Active TAKE ONE TABLET BY MOUTH EVERY MORNING WITH BREAKFAS T TO SUPPLEME NT POTASSIU M TO SUPPLEME NT POTASSIU M Apr 06, 2024 90 Apr 07, 2025 [id number] May 07, 2024 ASUNCION VELASQUEZ [facility] ORAL ACTIVE 04/07/2025 [id number] KATHARINE VELASQUEZ 2023 90 [facility] POTASSIUM CHLORIDE 10MEQ TAB,SA POTASSIU M CHLORIDE 10MEQ TAB,SA Disconti nued TAKE ONE TABLET BY MOUTH EVERY MORNING WITH BREAKFAS T TO SUPPLEME NT POTASSIU M TO SUPPLEME NT POTASSIU M May 10, 2023 90 May 10, 2024 [id number] Feb 17, 2024 LAUREN BILLY JR [facility] ORAL DISCONT INUED 05/10/2024 [id number] BRAYDENLAUREN ZARATE JR 2022 90 [facility] TAMSULOSIN HCL 0.4MG CAP TAMSULOS IN HCL 0.4MG CAP Active TAKE TWO CAPSULES BY MOUTH ONCE DAILY 30 MINUTES AFTER THE SAME MEALTIME EACH DAY FOR PROSTATE /URINARY SYMPTOMS . FOR LOWER URINARY TRACT SYMPTOMS May 03, 2024 180 May 04, 2025 [id number] May 03, 2024 JO CORBY QUIÑONES [facility] ORAL ACTIVE 05/04/2025 [id number] Joellen OSORIO 2023 180 [facility] TAMSULOSIN HCL 0.4MG CAP TAMSULOS IN HCL 0.4MG CAP Disconti nued TAKE ONE CAPSULE BY MOUTH TWICE A DAY 30 MINUTES AFTER THE SAME MEALTIME EACH DAY FOR PROSTATE /URINARY SYMPTOMS . Apr 06, 2024 60 Apr 07, 2025 [id number] Apr 06, 2024 ASUNCION VELASQUEZ SAJI [facility] ORAL DISCONT INUED (EDIT) 04/07/2025 [id number] RONHENRIETTA 2023 60 [facility] TAMSULOSIN HCL 0.4MG CAP TAMSULOS IN HCL 0.4MG CAP Disconti nued TAKE ONE CAPSULE BY MOUTH TWICE A DAY 30 MINUTES AFTER THE SAME MEALTIME EACH DAY FOR PROSTATE /URINARY SYMPTOMS . May 10, 2023 60 May 10, 2024 [id number] Feb 24, 2024 LAUREN BILLY JR [facility] ORAL DISCONT INUED 05/10/2024 [id number] LAUREN BILLY JR 2022 60 [facility] VASHE WOUND THERAPY SOLN,TOP VASHE WOUND THERAPY SOLN,TOP Active APPLY APPLICAT ION TOPICALL Y NEEDED PRESSURE INJURIES PRESSURE INJURIES Apr 11, 2024 500 Apr 12, 2025 [id number] May 03, 2024 DANIELLE QUINTERO [facility] L ACTIVE 04/12/2025 [id number] DANIELLE QUINTERO 2023 500 SONYA GAYLE [facility] Allergies, Adverse Reactions, Alerts Combined list of allergies from Department of Defense and Veterans Affairs facilities. It does not include entries that were removed or entered in error. Substance Category Reaction Severity Reaction type Status Date Reported Comments Source ANCEF INJECTION Propensity to adverse reactions to drug (finding) Anaphylaxis , Low blood pressure SEVERE active 4 SONYA [facility]MN[facility] 350 INJECTION Propensity to adverse reactions to drug (finding) Urticaria MILD active 7 [facility] OMNIPAQUE 350 INJECTION Propensity to adverse reactions to drug (finding) active 1 [facility] ROCURONIUM BROMIDE Propensity to adverse reactions to drug (finding) Anaphylaxis , Low blood pressure SEVERE active 4 [facility] Immunizations Combined list of available immunizations from the Department of Defense and Veterans Affairs facilities. Immunization Series Date Given Administered By Site Reaction Lot Number CVX Code Drug Metal Box Maker Status Comments Source INFLUENZA, HIGH-DOSE, QUADRIVALENT 2022 CHIP VAL[employer]E RIGHT DELTO ID [id number] 197 complet ed [facility] INFLUENZA VACCINE, QUADRIVALENT, ADJUVANTED 2021 205 complet ed [facility] COVID-19 (MODERNA), MRNA, LNP-S, PF, 100 MCG/0.5ML DOSE OR 50 MCG/0.25ML DOSE 3 2021 207 complet ed MOD; [id number] ; 2 [facility] COVID-19 ([employer]), VECTOR-NR, [id number], PF, 0.5 ML 2 2020 212 complet ed JSN; [id number]; 2 [facility] INFLUENZA VACCINE, QUADRIVALENT, ADJUVANTED 2020 205 complet ed [facility] COVID-19 ([employer]), VECTOR-NR, [id number], PF, 0.5 ML 1 2020 212 complet ed JSN; [id number]; 1 [facility] INFLUENZA, INJECTABLE, QUADRIVALENT, PRESERVATIVE FREE 2019 150 complet ed [facility] INFLU[facility], INJECTABLE, QUADRIVALENT, PRESERVATIVE FREE 2018 150 complet ed Site: Right Deltoid [facility] ZOSTER RECOMBINANT 2 2018 187 complet ed [facility] INFLUENZA, INJECTABLE, QUADRIVALENT 2018 158 complet ed Site: Right Deltoid [facility] ZOSTER RECOMBINANT [address] [facility] INFLUENZA, SEASONAL, INJECTABLE 2016 141 complet ed Site: Right Deltoid [facility] PNEUMOCOCCAL POLYSACCHARID E PPV23 2015 33 complet ed [facility] INFLUENZA, UNSPECIFIED FORMULATION 2015 88 complet ed Site: Right Deltoid [facility] INFLUENZA, UNSPECIFIED FORMULATION 2014 88 complet ed Site: Left Deltoid [facility] PNEUMOCOCCAL CONJUGATE PCV 13 2014 133 complet ed [facility] INFLUENZA, UNSPECIFIED FORMULATION 2013 88 complet ed [facility] TD(ADULT) UNSPECIFIED FORMULATION 2013 139 complet ed [facility] TDAP 2013 115 complet ed non-VA facility, date appx [facility] ZOSTER LIVE 2013 121 complet ed [facility] Results Combined list of recent chemistry, hematology and other laboratory results from Department of Defense and Veterans Affairs, ranging from 15 months to all on record, depending upon the facility. Order Name Results Value Reference Range Date Interpretation Specimen Comments Source UREA NITROGEN UREA NITROGEN [MASS/VOLU ME] IN SERUM OR PLASMA 10 mg/dL - 05/04 Specimen Type: PLASMA Comment: , Tests performed on Yoostay Lopes SN:[id number] (405) Ordering Provider: Kirsten FAM Report Released Date/Time: Nov 15, 2023 11:30 AM Reporting [facility] [address] [address] Performing Lab: [facility] [address] [address] [facility] CREATINI NE WITH eGFR PANEL CREATININE [MASS/VOLU ME] IN SERUM OR PLASMA 0.91 mg/dL 0.50 - 1.50 05/04 Specimen Type: PLASMA Comment: , Tests performed on Yoostay Lopes SN:[id number] (405) Ordering Provider: Kirsten FAM Report Released Date/Time: Nov 15, 2023 11:30 AM Reporting [facility] [address] [address] Per[facility]: [facility] [address] [address] [facility] CREATINI NE WITH eGFR PANEL GLOMERULAR FILTRATION RATE/1.73 SQ M.PREDICTE D [VOLUME RATE/AREA] IN SERUM, PLASMA OR BLOOD BY CREATININE -BASED FORMULA (CKD-EPI 2020) 86 05/04 Specimen Type: PLASMA Comment: , Tests performed on Yoostay Lopes SN:[id number] (026) Ordering Provider: Kirsten FAM Report Released Date/Time: Nov 15, 2023 11:30 AM Reporting Lab: [facility] [address] [address] Performing Lab: [facility] [address] [address] [facility] URINALYS IS W/REFLEX TO CULTURE COLOR OF URINE Light-Or keshav 11/28 Specimen Type: URINE No comment entered. Ordering Provider: ÁNGELA OSORIO [facility] Report Released Date/Time: Nov 24, 2023 05:48 PM Reporting Lab: [facility] [address] [address] Performing Lab: [facility] [address] [address] [facility] URINALYS IS W/REFLEX TO CULTURE SPECIFIC GRAVITY OF URINE BY REFRACTOME TRY 1.013 1.003 - 1.030 11/28 Specimen Type: URINE No comment entered. Ordering Provider: ÁNGELA OSORIO [facility] Report Released Date/Time: Nov 24, 2023 05:48 PM Reporting Lab: [facility] [address] [address] Performing Lab: [facility] [address] [address] [address] [facility] URINALYS IS W/REFLEX TO CULTURE UROBILINOG EN [MASS/VOLU ME] IN URINE <2.0mg/d L <2.0 - 2.0 11/28 Specimen Type: URINE No comment entered. Ordering Provider: ÁNGELA OSORIO [facility] Report Released Date/Time: Nov 24, 2023 05:48 PM Reporting Lab: [facility] [address] [address] Performing Lab: [facility] [address] [address] [facility] URINALYS IS W/REFLEX TO CULTURE BILIRUBIN. TOTAL [PRESENCE] IN URINE BY TEST STRIP NEG 11/28 Specimen Type: URINE No comment entered. Ordering Provider: ÁNGELA OSORIO [facility] Report Released Date/Time: Nov 24, 2023 05:48 PM Reporting Lab: [facility] [address] [address] [address] Performing Lab: [facility] [address] [address] [address] [facility] URINALYS IS W/REFLEX TO CULTURE KETONES [PRESENCE] IN URINE NEGmg/dL 11/28 Specimen Type: URINE No comment entered. Ordering Provider: ÁNGELA OSORIO [facility] Report Released Date/Time: Nov 24, 2023 05:48 PM Reporting Lab: [facility] [address] [facility] [address] [address] Performing Lab: [facility] [address] [address] [address] [facility] URINALYS IS W/REFLEX TO CULTURE GLUCOSE [MASS/VOLU ME] IN URINE BY TEST STRIP TRACEmg/ dL 11/28 Specimen Type: URINE No comment entered. Ordering Provider: ÁNGELA OSORIO [facility] Report Released Date/Time: Nov 24, 2023 05:48 PM Reporting Lab: [facility] [address] [facility] [address] [address] Performing Lab: [facility] [address] [address] [address] [facility] URINALYS IS W/REFLEX TO CULTURE PROTEIN [MASS/VOLU ME] IN URINE BY TEST STRIP 100 mg/dL 11/28 Specimen Type: URINE No comment entered. Ordering Provider: ÁNGELA OSORIO [facility] Report Released Date/Time: Nov 24, 2023 05:48 PM Reporting Lab: [facility] [address] [facility] [address] [address] Performing Lab: [facility] [address] [facility] [address] [address] [facility] URINALYS IS W/REFLEX TO CULTURE PH OF URINE BY TEST STRIP 6.5 5 - 8 11/28 Specimen Type: URINE No comment entered. Ordering Provider: ÁNGELA OSORIO [facility] Report Released Date/Time: Nov 24, 2023 05:48 PM Reporting Lab: [facility] [address] [facility] [address] [address] Performing Lab: [facility] [address] [address] [address] [facility] URINALYS IS W/REFLEX TO CULTURE LEUKOCYTES [#/AREA] IN URINE SEDIMENT BY MICROSCOPY HIGH POWER FIELD >182/[HP F] 0 - 5 11/28 H Specimen Type: URINE No comment entered. Ordering Provider: ÁNGELA OSORIO [facility] Report Released Date/Time: Nov 24, 2023 05:48 PM Reporting Lab: [facility] [address] [facility] [address] [address] Performing Lab: [facility] [address] [facility] [address] [address] [facility] URINALYS IS W/REFLEX TO CULTURE BACTERIA [PRESENCE] IN URINE SEDIMENT BY LIGHT MICROSCOPY FEW 11/28 Specimen Type: URINE No comment entered. Ordering Provider: ÁNGELA OSORIO [facility] Report Released Date/Time: Nov 24, 2023 05:48 PM Reporting Lab: [facility] [address] [facility] [address] Performing Lab: [facility] [address] [address] [address] [facility] URINALYS IS W/REFLEX TO CULTURE MUCUS [PRESENCE] IN URINE SEDIMENT BY LIGHT MICROSCOPY FEW 11/28 Specimen Type: URINE No comment entered. Ordering Provider: ÁNGELA OSORIO [facility] Report Released Date/Time: Nov 24, 2023 05:48 PM Reporting Lab: [facility] [address] [facility] [address] Performing Lab: [facility] [address] [facility] [address] [facility] URINALYS IS W/REFLEX TO CULTURE ERYTHROCYT ES [#/AREA] IN URINE SEDIMENT BY MICROSCOPY HIGH POWER FIELD >182/[HP F] 0 - 2 11/28 H Specimen Type: URINE No comment entered. Ordering Provider: ÁNGELA OSORIO [facility] Report Released Date/Time: Nov 24, 2023 05:48 PM Reporting Lab: [facility] [address] [facility] [address] Performing Lab: [facility] [address] [facility] [address] [facility] URINALYS IS W/REFLEX TO CULTURE APPEARANCE OF URINE CLOUDY 11/28 Specimen Type: URINE No comment entered. Ordering Provider: ÁNGELA OSORIO [facility] Report Released Date/Time: Nov 24, 2023 05:48 PM Reporting Lab: [facility] [address] [facility] [address] Performing Lab: [facility] [address] [facility] [address] [facility] URINALYS IS W/REFLEX TO CULTURE HEMOGLOBIN [PRESENCE] IN URINE LG 11/28 Specimen Type: URINE No comment entered. Ordering Provider: ÁNGELA OSORIO [facility] Report Released Date/Time: Nov 24, 2023 05:48 PM Reporting Lab: [facility] [address] [facility] [address] Performing Lab: [facility] [address] [facility] [address] [facility] URINALYS IS W/REFLEX TO CULTURE NITRITE [PRESENCE] IN URINE BY TEST STRIP NEG 11/28 Specimen Type: URINE No comment entered. Ordering Provider: ÁNGELA OSORIO [facility] Report Released Date/Time: Nov 24, 2023 05:48 PM Reporting Lab: [facility] [address] [facility] [address] Performing Lab: [facility] [address] [facility] [address] [facility] URINALYS IS W/REFLEX TO CULTURE LEUKOCYTES [PRESENCE] IN URINE LG 11/28 Specimen Type: URINE No comment entered. Ordering Provider: ÁNGELA OSORIO [facility] Report Released Date/Time: Nov 24, 2023 05:48 PM Reporting Lab: [facility] [address] [facility] [address] Performing Lab: [facility] [address] [facility] [address] [facility] URINALYS IS W/REFLEX TO CULTURE MICROSCOPI C-iQ Complete d 11/28 Specimen Type: URINE No comment entered. Ordering Provider: ÁNGELA OSORIO [facility] Report Released Date/Time: Nov 24, 2023 05:48 PM Reporting Lab: [facility] [address] [facility] [address] Performing Lab: [facility] [address] [facility] [address] [facility] URINALYS IS W/REFLEX TO CULTURE LEUKOCYTE CLUMPS [#/AREA] IN URINE SEDIMENT BY AUTOMATED COUNT MANY 11/28 Specimen Type: URINE No comment entered. Ordering Provider: ÁNGELA OSORIO [facility] Report Released Date/Time: Nov 24, 2023 05:48 PM Reporting Lab: [facility] [address] [facility] [address] Performing Lab: [facility] [address] [facility] [address] [facility] PSA (ARCHITE CT) PROSTATE SPECIFIC AG [MASS/VOLU ME] IN SERUM OR PLASMA 0.13 ng/mL 0 - 4.0 06/16 Specimen Type: SERUM Comment: Tests performed on [employer] (405) [id number] Ordering Provider: KEM HEIN Report Released Date/Time: Dec 09, 2022 08:40 AM Reporting Lab: [facility] [address] [facility] [address] Performing Lab: [facility] [address] [facility] [address] [facility] URINALYS IS W/REFLEX TO CULTURE COLOR OF URINE Dark-Bro wn 04/22 Specimen Type: URINE Comment: ~For Test: URINALYSIS W/REFLEX TO CULTURE ~prior to urologic surgery Ordering Provider: JAEL MORENO Report Released Date/Time: Apr 21, 2023 04:11 PM Reporting Lab: [facility] [address] [facility] [address] Performing Lab: [facility] [address] [facility] [address] [facility] URINALYS IS W/REFLEX TO CULTURE SPECIFIC GRAVITY OF URINE BY REFRACTOME TRY 1.012 1.003 - 1.030 04/22 Specimen Type: URINE Comment: ~For Test: URINALYSIS W/REFLEX TO CULTURE ~prior to urologic surgery Ordering Provider: JAEL MORENO Report Released Date/Time: Apr 21, 2023 04:11 PM Reporting Lab: [facility] [address] [facility] [address] Performing Lab: [facility] [address] [facility] [address] [facility] URINALYS IS W/REFLEX TO CULTURE UROBILINOG EN [MASS/VOLU ME] IN URINE <2.0mg/d L <2.0 - 2.0 04/22 Specimen Type: URINE Comment: ~For Test: URINALYSIS W/REFLEX TO CULTURE ~prior to urologic surgery Ordering Provider: JAEL MORENO Report Released Date/Time: Apr 21, 2023 04:11 PM Reporting Lab: [facility] [address] [facility] [address] Performing Lab: [facility] [address] [facility] [address] [facility] URINALYS IS W/REFLEX TO CULTURE BILIRUBIN. TOTAL [PRESENCE] IN URINE BY TEST STRIP NEG 04/22 Specimen Type: URINE Comment: ~For Test: URINALYSIS W/REFLEX TO CULTURE ~prior to urologic surgery Ordering Provider: JAEL MORENO Report Released Date/Time: Apr 21, 2023 04:11 PM Reporting Lab: [facility] [address] [place] [facility] [place] [address] Performing Lab: [facility] [address] [facility] [address] [facility] URINALYS IS W/REFLEX TO CULTURE KETONES [PRESENCE] IN URINE NEGmg/dL 04/22 Specimen Type: URINE Comment: ~For Test: URINALYSIS W/REFLEX TO CULTURE ~prior to urologic surgery Ordering Provider: JAEL MORENO Report Released Date/Time: Apr 21, 2023 04:11 PM Reporting Lab: [facility] [address] [facility] [address] Performing Lab: [facility] [address] [facility] [address] [facility] URINALYS IS W/REFLEX TO CULTURE GLUCOSE [MASS/VOLU ME] IN URINE BY TEST STRIP NEGmg/dL 04/22 Specimen Type: URINE Comment: ~For Test: URINALYSIS W/REFLEX TO CULTURE ~prior to urologic surgery Ordering Provider: JAEL MORENO Report Released Date/Time: Apr 21, 2023 04:11 PM Reporting Lab: [facility] [address] [facility] [address] Performing Lab: [facility] [address] [facility] [address] [facility] URINALYS IS W/REFLEX TO CULTURE PROTEIN [MASS/VOLU ME] IN URINE BY TEST STRIP 200 mg/dL 04/22 Specimen Type: URINE Comment: ~For Test: URINALYSIS W/REFLEX TO CULTURE ~prior to urologic surgery Ordering Provider: JAEL MORENO Report Released Date/Time: Apr 21, 2023 04:11 PM Reporting Lab: [facility] [address] [facility] [address] Performing Lab: [facility] [address] [facility] [address] [facility] URINALYS IS W/REFLEX TO CULTURE PH OF URINE BY TEST STRIP 6.0 5 - 8 04/22 Specimen Type: URINE Comment: ~For Test: URINALYSIS W/REFLEX TO CULTURE ~prior to urologic surgery Ordering Provider: JAEL MORENO Report Released Date/Time: Apr 21, 2023 04:11 PM Reporting Lab: [facility] [address] [facility] [address] Performing Lab: [facility] [address] [facility] [address] [facility] URINALYS IS W/REFLEX TO CULTURE LEUKOCYTES [#/AREA] IN URINE SEDIMENT BY MICROSCOPY HIGH POWER FIELD >182/[HP F] 0 - 5 04/22 H Specimen Type: URINE Comment: ~For Test: URINALYSIS W/REFLEX TO CULTURE ~prior to urologic surgery Ordering Provider: JAEL MORENO Report Released Date/Time: Apr 21, 2023 04:11 PM Reporting Lab: [facility] [address] [facility] [address] Performing Lab: [facility] [address] [facility] [address] [facility] URINALYS IS W/REFLEX TO CULTURE BACTERIA [PRESENCE] IN URINE SEDIMENT BY LIGHT MICROSCOPY FEW 04/22 Specimen Type: URINE Comment: ~For Test: URINALYSIS W/REFLEX TO CULTURE ~prior to urologic surgery Ordering Provider: JAEL MORENO Report Released Date/Time: Apr 21, 2023 04:11 PM Reporting Lab: [facility] [address] [facility] [address] Performing Lab: [facility] [address] [facility] [address] [facility] URINALYS IS W/REFLEX TO CULTURE MUCUS [PRESENCE] IN URINE SEDIMENT BY LIGHT MICROSCOPY MANY 04/22 Specimen Type: URINE Comment: ~For Test: URINALYSIS W/REFLEX TO CULTURE ~prior to urologic surgery Ordering Provider: JAEL MORENO Report Released Date/Time: Apr 21, 2023 04:11 PM Reporting Lab: [facility] [address] [facility] [address] Performing Lab: [facility] [address] [facility] [address] [facility] URINALYS IS W/REFLEX TO CULTURE YEAST [PRESENCE] IN URINE SEDIMENT BY LIGHT MICROSCOPY MANY 04/22 Specimen Type: URINE Comment: ~For Test: URINALYSIS W/REFLEX TO CULTURE ~prior to urologic surgery Ordering Provider: JAEL MORENO Report Released Date/Time: Apr 21, 2023 04:11 PM Reporting Lab: [facility] [address] [facility] [address] Performing Lab: [facility] [address] [facility] [address] [facility] URINALYS IS W/REFLEX TO CULTURE ERYTHROCYT ES [#/AREA] IN URINE SEDIMENT BY MICROSCOPY HIGH POWER FIELD >182/[HP F] 0 - 3 04/22 H Specimen Type: URINE Comment: ~For Test: URINALYSIS W/REFLEX TO CULTURE ~prior to urologic surgery Ordering Provider: JAEL MORENO Report Released Date/Time: Apr 21, 2023 04:11 PM Reporting Lab: [facility] [address] [facility] [address] Performing Lab: [facility] [address] [facility] [address] [facility] URINALYS IS W/REFLEX TO CULTURE APPEARANCE OF URINE TURBID 04/22 Specimen Type: URINE Comment: ~For Test: URINALYSIS W/REFLEX TO CULTURE ~prior to urologic surgery Ordering Provider: JAEL MORENO Report Released Date/Time: Apr 21, 2023 04:11 PM Reporting Lab: [facility] [address] [facility] [address] Performing Lab: [facility] [address] [facility] [address] [facility] URINALYS IS W/REFLEX TO CULTURE HEMOGLOBIN [PRESENCE] IN URINE LG 04/22 Specimen Type: URINE Comment: ~For Test: URINALYSIS W/REFLEX TO CULTURE ~prior to urologic surgery Ordering Provider: JAEL MORENO Report Released Date/Time: Apr 21, 2023 04:11 PM Reporting Lab: [facility] [address] [facility] [address] Performing Lab: [facility] [address] [facility] [address] [facility] URINALYS IS W/REFLEX TO CULTURE NITRITE [PRESENCE] IN URINE BY TEST STRIP NEG 04/22 Specimen Type: URINE Comment: ~For Test: URINALYSIS W/REFLEX TO CULTURE ~prior to urologic surgery Ordering Provider: JAEL MORENO Report Released Date/Time: Apr 21, 2023 04:11 PM Reporting Lab: [facility] [address] [facility] [address] Performing Lab: [facility] [address] [facility] [address] [facility] URINALYS IS W/REFLEX TO CULTURE LEUKOCYTES [PRESENCE] IN URINE LG 04/22 Specimen Type: URINE Comment: ~For Test: URINALYSIS W/REFLEX TO CULTURE ~prior to urologic surgery Ordering Provider: JAEL MORENO Report Released Date/Time: Apr 21, 2023 04:11 PM Reporting Lab: [facility] [address] [facility] [address] Performing Lab: [facility] [address] [facility] [address] [facility] URINALYS IS W/REFLEX TO CULTURE MICROSCOPI C-iQ Complete d 04/22 Specimen Type: URINE Comment: ~For Test: URINALYSIS W/REFLEX TO CULTURE ~prior to urologic surgery Ordering Provider: JAEL MORENO Report Released Date/Time: Apr 21, 2023 04:11 PM Reporting Lab: [facility] [address] [facility] [address] Performing Lab: [facility] [address] [facility] [address] [facility] URINALYS IS W/REFLEX TO CULTURE LEUKOCYTE CLUMPS [#/AREA] IN URINE SEDIMENT BY AUTOMATED COUNT MANY 04/22 Specimen Type: URINE Comment: ~For Test: URINALYSIS W/REFLEX TO CULTURE ~prior to urologic surgery Ordering Provider: JAEL MORENO Report Released Date/Time: Apr 21, 2023 04:11 PM Reporting Lab: [facility] [address] [facility] [address] Performing Lab: [facility] [address] [facility] [address] [facility] URINALYS IS W/REFLEX TO CULTURE COLOR OF URINE Light-Or keshav 02/11 Specimen Type: URINE No comment entered. Ordering Provider: SAAD JOHNSON Report Released Date/Time: Jan 26, 2023 01:36 PM Reporting Lab: [facility] [address] [facility] [address] Performing Lab: [facility] [address] [facility] [address] [facility] URINALYS IS W/REFLEX TO CULTURE SPECIFIC GRAVITY OF URINE BY REFRACTOME TRY 1.011 1.003 - 1.030 02/11 Specimen Type: URINE No comment entered. Ordering Provider: SAAD JOHNSON Report Released Date/Time: Jan 26, 2023 01:36 PM Reporting Lab: [facility] [address] [facility] [address] Performing Lab: [facility] [address] [facility] [address] [facility] URINALYS IS W/REFLEX TO CULTURE UROBILINOG EN [MASS/VOLU ME] IN URINE <2.0mg/d L 02/11 Specimen Type: URINE No comment entered. Ordering Provider: SAAD JOHNSON Report Released Date/Time: Jan 26, 2023 01:36 PM Reporting Lab: [facility] [address] [facility] [address] Performing Lab: [facility] [address] [facility] [address] [facility] URINALYS IS W/REFLEX TO CULTURE BILIRUBIN. TOTAL [PRESENCE] IN URINE BY TEST STRIP NEG 02/11 Specimen Type: URINE No comment entered. Ordering Provider: SAAD JOHNSON Report Released Date/Time: Jan 26, 2023 01:36 PM Reporting Lab: [facility] [address] [facility] [address] Performing Lab: [facility] [address] [facility] [address] [facility] URINALYS IS W/REFLEX TO CULTURE KETONES [PRESENCE] IN URINE NEGmg/dL 02/11 Specimen Type: URINE No comment entered. Ordering Provider: SAAD JOHNSON Report Released Date/Time: Jan 26, 2023 01:36 PM Reporting Lab: [facility] [address] [facility] [address] Performing Lab: [facility] [address] [facility] [address] [facility] URINALYS IS W/REFLEX TO CULTURE GLUCOSE [MASS/VOLU ME] IN URINE BY TEST STRIP TRACEmg/ dL 02/11 Specimen Type: URINE No comment entered. Ordering Provider: SAAD JOHNSON Report Released Date/Time: Jan 26, 2023 01:36 PM Reporting Lab: [facility] [address] [facility] [address] Performing Lab: [facility] [address] [facility] [address] [facility] URINALYS IS W/REFLEX TO CULTURE PROTEIN [MASS/VOLU ME] IN URINE BY TEST STRIP 100 mg/dL 02/11 Specimen Type: URINE No comment entered. Ordering Provider: SAAD JOHNSON Report Released Date/Time: Jan 26, 2023 01:36 PM Reporting Lab: [facility] [address] [facility] [address] Performing Lab: [facility] [address] [facility] [address] [facility] URINALYS IS W/REFLEX TO CULTURE PH OF URINE BY TEST STRIP 6.5 5 - 8 02/11 Specimen Type: URINE No comment entered. Ordering Provider: SAAD JOHNSON Report Released Date/Time: Jan 26, 2023 01:36 PM Reporting Lab: [facility] [address] [facility] [address] Performing Lab: [facility] [address] [facility] [address] [facility] URINALYS IS W/REFLEX TO CULTURE LEUKOCYTES [#/AREA] IN URINE SEDIMENT BY MICROSCOPY HIGH POWER FIELD >182/[HP F] 0 - 5 02/11 H Specimen Type: URINE No comment entered. Ordering Provider: SAAD JOHNSON Report Released Date/Time: Jan 26, 2023 01:36 PM Reporting Lab: [facility] [address] [facility] [address] Performing Lab: [facility] [address] [facility] [address] [facility] URINALYS IS W/REFLEX TO CULTURE YEAST [PRESENCE] IN URINE SEDIMENT BY LIGHT MICROSCOPY FEW 02/11 Specimen Type: URINE No comment entered. Ordering Provider: SAAD JOHNSON Report Released Date/Time: Jan 26, 2023 01:36 PM Reporting Lab: [facility] [address] [facility] [address] Performing Lab: [facility] [address] [facility] [address] [facility] URINALYS IS W/REFLEX TO CULTURE ERYTHROCYT ES [#/AREA] IN URINE SEDIMENT BY MICROSCOPY HIGH POWER FIELD >182/[HP F] 0 - 3 02/11 H Specimen Type: URINE No comment entered. Ordering Provider: SAAD JOHNSON Report Released Date/Time: Jan 26, 2023 01:36 PM Reporting Lab: [facility] [address] [facility] [address] Performing Lab: [facility] [address] [facility] [address] [facility] URINALYS IS W/REFLEX TO CULTURE APPEARANCE OF URINE TURBID 02/11 Specimen Type: URINE No comment entered. Ordering Provider: SAAD JOHNSON Report Released Date/Time: Jan 26, 2023 01:36 PM Reporting Lab: [facility] [address] [facility] [address] Performing Lab: [facility] [address] [facility] [address] [facility] URINALYS IS W/REFLEX TO CULTURE HEMOGLOBIN [PRESENCE] IN URINE LG 02/11 Specimen Type: URINE No comment entered. Ordering Provider: SAAD JOHNSON Report Released Date/Time: Jan 26, 2023 01:36 PM Reporting Lab: [facility] [address] [facility] [address] Performing Lab: [facility] [address] [facility] [address] [facility] URINALYS IS W/REFLEX TO CULTURE NITRITE [PRESENCE] IN URINE BY TEST STRIP NEG 02/11 Specimen Type: URINE No comment entered. Ordering Provider: SAAD JOHNSON Report Released Date/Time: Jan 26, 2023 01:36 PM Reporting Lab: [facility] [address] [facility] [address] Performing Lab: [facility] [address] [facility] [address] [facility] URINALYS IS W/REFLEX TO CULTURE LEUKOCYTES [PRESENCE] IN URINE LG 02/11 Specimen Type: URINE No comment entered. Ordering Provider: SAAD JOHNSON Report Released Date/Time: Jan 26, 2023 01:36 PM Reporting Lab: [facility] [address] [facility] [address] Performing Lab: [facility] [address] [facility] [address] [facility] URINALYS IS W/REFLEX TO CULTURE MICROSCOPI C-iQ Complete d 02/11 Specimen Type: URINE No comment entered. Ordering Provider: SAAD JOHNSON Report Released Date/Time: Jan 26, 2023 01:36 PM Reporting Lab: [facility] [address] [facility] [address] Performing Lab: [facility] [address] [facility] [address] [facility] URINALYS IS W/REFLEX TO CULTURE LEUKOCYTE CLUMPS [#/AREA] IN URINE SEDIMENT BY AUTOMATED COUNT MANY 02/11 Specimen Type: URINE No comment entered. Ordering Provider: SAAD JOHNSON Report Released Date/Time: Jan 26, 2023 01:36 PM Reporting Lab: [facility] [address] [facility] [address] Performing Lab: [facility] [address] [facility] [address] [facility] P4 GLU,BUN, CREAT,LY SELENE,CA UREA NITROGEN [MASS/VOLU ME] IN SERUM OR PLASMA 8 mg/dL 7 - 25 02/11 Specimen Type: PLASMA Comment: Tests performed on [employer] (405) SN:[id number] Ordering Provider: APRYL CHAVEZ Report Released Date/Time: Feb 11, 2023 02:29 PM Reporting Lab: [facility] [address] [facility] [address] Performing Lab: [facility] [address] [facility] [address] [facility] P4 GLU,BUN, CREAT,LY SELENE,CA SODIUM [MOLES/VOL UME] IN SERUM OR PLASMA 141 mmol/L 135 - 145 02/11 Specimen Type: PLASMA Comment: Tests performed on [employer] (405) SN:[id number] Ordering Provider: APRYL CHAVEZ Report Released Date/Time: Feb 11, 2023 02:29 PM Reporting Lab: [facility] [address] [facility] [address] Performing Lab: [facility] [address] [facility] [address] [facility] P4 GLU,BUN, CREAT,LY SELENE,CA POTASSIUM [MOLES/VOL UME] IN SERUM OR PLASMA 3.3 mmol/L 3.5 - 5.0 02/11 L Specimen Type: PLASMA Comment: Tests performed on [employer] (405) SN:[id number] Ordering Provider: APRYL CHAVEZ Report Released Date/Time: Feb 11, 2023 02:29 PM Reporting Lab: [facility] [address] [facility] [address] Performing Lab: [facility] [address] [facility] [address] [facility] P4 GLU,BUN, CREAT,LY SELENE,CA CHLORIDE [MOLES/VOL UME] IN SERUM OR PLASMA 103 mmol/L 100 - 110 02/11 Specimen Type: PLASMA Comment: Tests performed on [employer] (405) SN:[id number] Ordering Provider: APRYL CHAVEZ Report Released Date/Time: Feb 11, 2023 02:29 PM Reporting Lab: [facility] [address] [facility] [address] Performing Lab: [facility] [address] [facility] [address] [facility] P4 GLU,BUN, CREAT,LY SELENE,CA CARBON DIOXIDE, TOTAL [MOLES/VOL UME] IN SERUM OR PLASMA 29 mmol/L 20 - 30 02/11 Specimen Type: PLASMA Comment: Tests performed on [employer] (405) SN:[id number] Ordering Provider: APRYL CHAVEZ Report Released Date/Time: Feb 11, 2023 02:29 PM Reporting Lab: [facility] [address] [facility] [address] Performing Lab: [facility] [address] [facility] [address] [facility] P4 GLU,BUN, CREAT,LY SELENE,CA ANION GAP IN SERUM OR PLASMA 9 mmol/L 4 - 16 02/11 Specimen Type: PLASMA Comment: Tests performed on [employer] (405) SN:[id number] Ordering Provider: APRYL CHAVEZ Report Released Date/Time: Feb 11, 2023 02:29 PM Reporting Lab: [facility] [address] [facility] [address] Performing Lab: [facility] [address] [facility] [address] [facility] P4 GLU,BUN, CREAT,LY SELENE,CA GLUCOSE [MASS/VOLU ME] IN SERUM OR PLASMA 100 mg/dL 65 - 100 02/11 Specimen Type: PLASMA Comment: Tests performed on [employer] (405) SN:[id number] Ordering Provider: APRYL CHAVEZ Report Released Date/Time: Feb 11, 2023 02:29 PM Reporting Lab: [facility] [address] [facility] [address] Performing Lab: [facility] [address] [facility] [address] [facility] P4 GLU,BUN, CREAT,LY SELENE,CA CREATININE [MASS/VOLU ME] IN SERUM OR PLASMA 0.84 mg/dL 0.5 - 1.5 02/11 Specimen Type: PLASMA Comment: Tests performed on [employer] (405) SN:[id number] Ordering Provider: APRYL CHAVEZ Report Released Date/Time: Feb 11, 2023 02:29 PM Reporting Lab: [facility] [address] [facility] [address] Performing Lab: [facility] [address] [facility] [address] [facility] P4 GLU,BUN, CREAT,LY SELENE,CA CALCIUM [MASS/VOLU ME] IN SERUM OR PLASMA 9.4 mg/dL 8.5 - 10.5 02/11 Specimen Type: PLASMA Comment: Tests performed on [employer] (405) SN:[id number] Ordering Provider: APRYL CHAVEZ Report Released Date/Time: Feb 11, 2023 02:29 PM Reporting Lab: [facility] [address] [facility] [address] Performing Lab: [facility] [address] [facility] [address] [facility] P4 GLU,BUN, CREAT,LY SELENE,CA GLOMERULAR FILTRATION RATE/1.73 SQ M.PREDICTE D [VOLUME RATE/AREA] IN SERUM, PLASMA OR BLOOD BY CREATININE -BASED FORMULA (CKD-EPI 2020) >90.0mL/ min 02/11 Specimen Type: PLASMA Comment: Tests performed on Yoostay (405) SN:[id number] Ordering Provider: APRYL CHAVEZ Report Released Date/Time: Feb 11, 2023 02:29 PM Reporting Lab: [facility] [address] [address] Performing Lab: [facility] [address] [address] [facility] PSA (ARCHITE CT) PROSTATE SPECIFIC AG [MASS/VOLU ME] IN SERUM OR PLASMA 0.14 ng/mL 0 - 4.0 12/08 Specimen Type: SERUM No comment entered. Ordering Provider: KEM HEIN Report Released Date/Time: Jul 14, 2022 07:32 AM Reporting Lab: [facility] [address] [address] Performing Lab: [facility] [address] [address] [facility] GLYCOHEM OGLOBIN (A1C ONLY) HEMOGLOBIN A1C/HEMOGL OBIN.TOTAL IN BLOOD BY HPLC 5.6 4.0 - 5.6 12/08 Specimen Type: BLOOD Comment: Values obtained from A1C measurement s can vary. For typical A1C assays, a reported value of 7.0 could actually be between 6.72 and 7.28 if measured by a reference method. A reported value of 9.0 could actually be between 8.73 and 9.27. Reference [email or web address] [email or web address] Ordering Provider: APRYL CHAVEZ Report Released Date/Time: Aug 26, 2022 02:09 PM Reporting Lab: [facility] [address] [address] [address] Performing Lab: [facility] [address] [address] [facility] CB VIT D 25-OH(WR J) CALCIFEROL (VIT D2) [MASS/VOLU ME] IN SERUM OR PLASMA 61.4 ng/mL 20 - 50 12/08 H Specimen Type: SERUM No comment entered. Ordering Provider: APRYL CHAVEZ Report Released Date/Time: Aug 26, 2022 02:09 PM Reporting Lab: [facility] [address] [place] [facility] [place] [address] Performing Lab: [facility] [address] [place] [id number] [facility] Vital Signs Combined list of inpatient and outpatient Vital Signs from Department of Defense and Veterans Affairs, ranging from 12 months to all on record, depending upon the facility. Vital Sign Value Date Comments Source WEIGHT 121.7 05/08/2024 14:31:52 [facility] BMI 18kg/m2 05/08/2024 14:31:52 [facility] SYSTOLIC BLOOD PRESSURE 130 05/04/2024 13:44:06 [facility] DIASTOLIC BLOOD PRESSURE 72 05/04/2024 13:44:06 [facility] PULSE OXIMETRY 98 05/04/2024 13:44:06 [facility] PAIN 0 05/04/2024 13:44:06 [facility] TEMPERATURE 97 05/04/2024 13:44:06 [facility] PULSE 78 05/04/2024 13:44:06 [facility] RESPIRATION 17 05/04/2024 13:44:06 [facility] SYSTOLIC BLOOD PRESSURE 128 04/06/2024 12:44:02 [facility] DIASTOLIC BLOOD PRESSURE 73 04/06/2024 12:44:02 [facility] PULSE OXIMETRY 95 04/06/2024 12:44:02 [facility] WEIGHT 118 04/06/2024 12:44:02 [facility] BMI 17kg/m2 04/06/2024 12:44:02 [facility] PAIN 3 04/06/2024 12:44:02 [facility] HEIGHT 69 04/06/2024 12:44:02 [facility] TEMPERATURE 97.7 04/06/2024 12:44:02 [facility] PULSE 80 04/06/2024 12:44:02 [facility] RESPIRATION 20 04/06/2024 12:44:02 [facility] SYSTOLIC BLOOD PRESSURE 117 02/21/2024 10:09:46 [facility] DIASTOLIC BLOOD PRESSURE 72 02/21/2024 10:09:46 [facility] PULSE OXIMETRY 96 02/21/2024 10:09:46 [facility] WEIGHT 124.9 02/21/2024 10:09:46 [facility] BMI 18kg/m2 02/21/2024 10:09:46 [facility] PAIN 0 02/21/2024 10:09:46 [facility] TEMPERATURE 97.9 02/21/2024 10:09:46 [facility] PULSE 71 02/21/2024 10:09:46 [facility] SYSTOLIC BLOOD PRESSURE 116 12/21/2023 14:25:18 [facility] DIASTOLIC BLOOD PRESSURE 74 12/21/2023 14:25:18 [facility] PULSE OXIMETRY 97 12/21/2023 14:25:18 [facility] TEMPERATURE 97.5 12/21/2023 14:25:18 [facility] PULSE 63 12/21/2023 14:25:18 [facility] RESPIRATION 20 12/21/2023 14:25:18 [facility] Encounters Combined list of: 1) Encounters from Department of Veterans Affairs facilities going back up to thelast 18 months. 2) Encounters from the Department of Defense facilities going back up to 280 months. Location Location Details Encounter Type Encounter Number Reason For Visit Attending Provider ADM Date DC Date Status Disposition Source [facility] Encounter [id number] 26 11/[address] [facility] Out[facility] Encounter [id number] [id number] Diagnos is: ICD-10- CM N20.0 Calculu s of kidney< br/> MICHELLE CUTLER 12/02 [facility] Outpatient Encounter [id number] [id number] 12/07 [facility] Outpatient Encounter [id number] [id number] 12/08 [facility] Outpatient Encounter [id number] [id number] 12/08 [facility] Outpatient Encounter [id number] 5. Diagnos is: ICD-10- CM C67.9 Maligna nt neoplas m of bladder , unspeci fied
Kirsten BROWN NNE T 12/09 [facility] OFF/OP EST DECEMBER X REQ PHY/QHP 94020-8.40 5. Diagnos is: ICD-10- CM Z01.818 Encount er for other preproc edural examina tion
TIANNA CARR 12/10 [facility] Outpatient Encounter 76896-6.40 5.12/11 [facility] HC PRO PHONE CALL 5-10 MIN 98887-4.40 5. Diagnos is: ICD-10- CM Z01.818 Encount er for other preproc edural examina tion
SAMANTHA MARTINEZ 12/11 [facility] Outpatient Encounter [id number] [id number] 12/14 [facility] Outpatient Encounter [id number] [id number] 12/14 [facility] ANESTH STONE REMOVAL [id number] [id number] Diagnos is: ICD-10- CM N20.0 Calculu s of kidney< br/> BOWDOIN,SH AWN R 12/14 [facility] Outpatient Encounter [id number] [id number] Diagnos is: ICD-10- CM N20.0 Calculu s of kidney< br/> KERFOOT,BR ANCH QUIÑONES 12/14 [facility] CYSTO/URET ERO W/LITHOTRI PSY 45202-6.40 5. NORM ROTH R 12/14 [facility] ANESTH STONE REMOVAL [id number] [id number] Diagnos is: ICD-10- CM N20.0 Calculu s of kidney< br/> ARINHusam SEGUNSERGO C 12/14 [facility] Outpatient Encounter [id number] [id number]/14 [facility] Outpatient Encounter 28147-3.40 5. BERSYDARGENTINA E 12/15 [facility] Outpatient Encounter [id number] [id number] 12/15 [facility] Outpatient Encounter [id number] [id number]/15 [facility] OFF/OP EST MAY X REQ PHY/QHP 23930-7.40 [id number] Diagnos is: ICD-10- CM Z01.818 Encount er for other preproc edural examina tion
CARR,TIANNA A 12/16 [facility] OFF/OP EST MAY X REQ PHY/QHP [id number] [id number] Diagnos is: ICD-10- CM Z04.9 Encount er for examina tion and observa tion for unsp reason< br/> PETTIGLIO, OJ A 12/17 [facility] Outpatient Encounter [id number] [id number] 12/19 [facility] Outpatient Encounter 94083-3.40 5.12/21 [facility] Outpatient Encounter 26106-9.40 [id number] 12/24 [facility] HC PRO PHONE CALL 5-10 MIN 62182-8.40 5. Diagnos is: ICD-10- CM Z01.818 Encount er for other preproc edural examina tion
JUAN SAMANTHA RAE 12/24 [facility] HC PRO PHONE CALL 11-20 MIN [id number] [id number] Diagnos is: ICD-10- CM Z01.818 Encount er for other preproc edural examina tion
YOBANI HAIDER NNE Y 12/25 [facility] Outpatient Encounter [id number] [id number] 12/28 [facility] Outpatient Encounter 81421-2.40 [id number] 12/28 [facility] CYSTO/URET ERO W/LITHOTRI PSY [id number] [id number] Diagnos is: ICD-10- CM N20.0 Calculu s of kidney< br/> KERFOOT,BR ANCH QUIÑONES 12/28 [facility] CYSTO/URET ERO W/LITHOTRI PSY 07194-2.40 [id number] MICHEL JOHNSON 12/28 [facility] SPECIAL ANESTHESIA SERVICE 98870-8.40 5. Diagnos is: ICD-10- CM N20.0 Calculu s of kidney< br/> PAULETTE MANRIQUEZ 12/28 [facility]ESTH[facility]IA SERVICE [id number] [id number] Diagnos is: ICD-10- CM N20.0 Calculu s of kidney< br/> KELVINXAVIER AWN R 12/28 [facility] Outpatient Encounter [id number] [id number] 12/29 [facility] OFF/OP EST DECEMBER X REQ PHY/QHP 45905-3.40 [id number] Diagnos is: ICD-10- CM Z01.818 Encount er for other preproc edural examina tion
TIANNA CARR A 12/31 [facility] HC PRO PHONE CALL 5-10 MIN 88095-8.40 5. Diagnos is: ICD-10- CM Z01.818 Encount er for other preproc edural examina tion
PARIS MACHUCA ORMARIAM A 01/05 [facility] Outpatient Encounter 90486-2.40 [id number] Margoth BARKSDALE 01/05 [facility] Outpatient Encounter [id number] [id number] 01/06 [facility] HC PRO PHONE CALL 5-10 MIN [id number] [id number] Diagnos is: ICD-10- CM Z01.818 Encount er for other preproc edural examina tion
WENDY DE LA CRUZ NNAH E 01/06 [facility] HC PRO PHONE CALL 5-10 MIN [id number] [id number] Diagnos is: ICD-10- CM Z01.818 Encount er for other preproc edural examina tion
Joellen SIERRA 01/06 [facility] Outpatient Encounter [id number] [id number]/07 [facility] Outpatient Encounter 11604-4.40 5.01/07 [facility] SPECIAL ANESTHESIA SERVICE [id number] [id number] Diagnos is: ICD-10- CM N20.0 Calculu s of kidney< br/> STEVEN CYR Jannette Muñiz 01/07 [facility] Outpatient Encounter [id number] [id number] Diagnos is: ICD-10- CM N20.0 Calculu s of kidney< br/> KERFOOT,BR ANCH QUIÑONES 01/07 [facility] CYSTO/URET ERO W/LITHOTRI PSY 23669-4.40 5. 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< br/> SAMANTHA MARTINEZ 01/08 [facility] Outpatient Encounter [id number] [id number] 01/10 [facility] Outpatient Encounter 37787-5.40 [id number] 01/12 [facility] Outpatient Encounter [id number] [id number] 01/19 [facility] Outpatient Encounter 31443-6.40 [id number] 01/21 [facility] Outpatient Encounter 76827-7.40 [id number] 01/22 [facility] Outpatient Encounter [id number] [id number] 01/23 [facility] Outpatient Encounter 51244-2.40 [id number] MYRIAM FLORES CIA 01/24 [facility] Outpatient Encounter 12727-2.40 [id number] 01/25 [facility] Outpatient Encounter [id number] [id number] 01/26 [facility] Outpatient Encounter [id number] [id number] 01/26 [facility] OFFICE O/P EST MOD 30-39 MIN 32279-5.40 [id number] Diagnos is: ICD-10- CM N20.0 Calculu s of kidney< br/> BETTENCOUR TDELBERT-CL HERNANDEZ 01/26 [facility] Outpatient Encounter [id number] [id number] 01/31 [facility] Outpatient Encounter 35846-3.40 [id number] [facility] Outpatient Encounter [id number] [id number] 02/01 [facility] Outpatient Encounter [id number] [id number] 02/08 [facility] Outpatient Encounter 80401-4.40 [id number] 02/09 [facility] OFFICE O/P EST LOW 20-29 MIN 66073-2.40 [id number] Diagnos is: ICD-10- CM Z87.440 Persona l history of urinary (tract) infecti ons<br/ > SCOTTRHEA CHAHALEIGH 02/11 [facility] Outpatient Encounter [id number] [id number] [facility] Ulysses 02/16 [facility] HC PRO PHONE CALL 11-20 MIN 23891-6.40 [id number] Diagnos is: ICD-10- CM F32.9 Major depress finn disorde r, single episode , unspeci fied
BELAZORADAMARIS R 02/16 [facility] Outpatient Encounter 99010-4.40 [id number] 02/17 [facility] OFF/OP EST DECEMBER X REQ PHY/QHP 79401-9.40 [id number] Diagnos is: ICD-10- CM Z01.818 Encount er for other preproc edural examina tion
TIANNA CARR 02/18 [facility] Outpatient Encounter [id number] [id number] [facility] OFFICE O/P EST HI 40-54 MIN 17210-2.40 [id number] Diagnos is: ICD-10- CM F32.9 Major depress finn disorde r, single episode , unspeci fied
MARIO MEDINA 02/25 [facility] Outpatient Encounter [id number] [id number] Diagnos is: ICD-10- CM N20.0 Calculu s of kidney< br/> PAULETTE MANRIQUEZ J 03/01 [facility] HC PRO PHONE CALL 5-10 MIN [id number] [id number] Diagnos is: ICD-10- CM Z01.818 Encount er for other preproc edural examina tion
CHUNG ROBB MEYER 03/01 [place] HC PRO PHONE CALL 5-10 MIN [id number] [id number] Diagnos is: ICD-10- CM Z01.818 Encount er for other preproc edural examina tion
XAVIER LUX 03/03 [facility] Outpatient Encounter [id number] [id number] 03/04 [facility] Outpatient Encounter [id number] [id number] 03/04 [facility] OFFICE O/P EST SF 10-19 MIN 31668-8.40 [id number] Diagnos is: ICD-10- CM Z01.818 Encount er for other preproc edural examina tion
CORONA PRUITT STOP 03/04 [facility] ANESTH STONE REMOVAL 69567-6.40 [id number] Diagnos is: ICD-10- CM N20.0 Calculu s of kidney< br/> CORONA PRUITT STOP 03/04 [facility] Outpatient Encounter [id number] [id number] Diagnos is: ICD-10- CM N20.0 Calculu s of kidney< br/> MICHELLE CUTLER 03/04 [facility] CYSTO/URET ERO W/LITHOTRI PSY [id number] [id number] Husam RAJPUT 03/04 [facility] Outpatient Encounter [id number] [id number] [place] PRUITT 03/04 [facility] POSTOP FOLLOW-UP VISIT 22205-7.40 [id number] Diagnos is: ICD-10- CM Z51.89 Encount er for other specifi ed afterca re
[place] PRUITT STOP 03/04 [facility] Outpatient Encounter [id number] [id number] Margtoh MARTINEZ N 03/04 [facility] Outpatient Encounter [id number] [id number] Margoth MARTINEZ N 03/04 [facility] Outpatient Encounter [id number] [id number] Margoth MARTINEZ N 03/04 [facility] Outpatient Encounter [id number] [id number] 03/05 [facility] FEE 93891-3.40 [id number] Diagnos is: ICD-10- CM 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<b r/> Jeimy GANDHI C 03/29 [facility] [place] [address]-9.40 [id number] Diagnos is: ICD-10- CM 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<b r/> Jeimy GANDHI ILL C 03/29 [facility] Outpatient Encounter [id number] [id number] 03/30 [facility] HC PRO PHONE CALL 5-10 MIN 16598-1.40 [id number] Diagnos is: ICD-10- CM R68.89 Other general symptom s and signs<b r/> PETTIGLIOJ Jovel A 04/06 [facility] Outpatient Encounter 45138-9.40 [id number] Diagnos is: ICD-10- CM N20.0 Calculu s of kidney< br/> MICHELLE CUTLER A 04/21 [facility] OFF/OP EST DECEMBER X REQ PHY/QHP 89627-8.40 [id number] Diagnos is: ICD-10- CM Z01.818 Encount er for other preproc edural examina tion
TIANNA CARR A 04/23 [facility] Outpatient Encounter 47560-9.40 [id number]/23 [facility] Outpatient Encounter 10776-2.40 [id number] Diagnos is: ICD-10- CM N20.0 Calculu s of kidney< br/> PAULETTE MANRIQUEZ J 04/23 [facility] HC PRO PHONE CALL 5-10 MIN 86339-5.40 [id number] Diagnos is: ICD-10- CM Z01.818 Encount er for other preproc edural examina tion
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< br/> Joellen OSORIO MD 04/29 [facility]T ER[facility] W/LITHOTRI PSY 79623-9.40 [id number] Husam RAJPUTMERAKanu 04/29 [facility] Outpatient Encounter [id number] [id number] [place] PRU[facility] STOP 04/29 [facility] OFFICE O/P EST MOD 30-39 MIN 59178-4.40 [id number] Diagnos is: ICD-10- CM N20.0 Calculu s of kidney< br/> [facility] 04/29 [facility] SPECIAL ANESTHESIA SERVICE 86438-3.40 [id number] Diagnos is: ICD-10- CM 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< br/> [facility] 04/29 [facility] Outpatient Encounter [id number] [id number] Joellen SIERRA 04/29 [facility] POSTOP FOLLOW-UP VISIT 06176-9.40 [id number] Diagnos is: ICD-10- CM N20.0 Calculu s of kidney< br/> [facility] 04/29 [facility] Outpatient Encounter [id number] [id number] 04/30 [facility] Outpatient Encounter [id number] [id number] 05/01 [facility] OFFICE O/P EST MOD 30-39 MIN 93476-2.40 [id number] Diagnos is: ICD-10- CM I71.40 Abdomin al aortic aneurys m, without rupture , unspeci fied
STONE,WYATT D H 05/06 [facility] Outpatient Encounter 08366-6.40 [id number] 05/10 [facility] Outpatient Encounter 94155-7.40 [id number] 05/24 [facility] Outpatient Encounter 07945-8.40 [id number] 05/26 [facility] Outpatient Encounter 66796-2.40 [id number] 06/02 [facility] OFFICE O/P EST HI 40-54 MIN 10767-7.40 [id number] Diagnos is: ICD-10- CM N20.0 Calculu s of kidney< br/> KERFOOT,BR ANCH QUIÑONES 06/16 [facility] OFF/OP EST DECEMBER X REQ PHY/QHP 93756-0.40 5HC. 22 Diagnos is: ICD-10- CM Z23 Encount er for immuniz ation<b r/> LACLAIR,CH RISTINE M 06/17 [facility] Outpatient Encounter [id number] [id number] 06/22 [facility] Outpatient Encounter [id number] [id number] 06/30 [facility] Outpatient Encounter 35958-6.40 [id number] [facility] MED NUTRITION INDIV SUBSEQ 88382-1.40 [id number] Diagnos is: ICD-10- CM Z68.1 Body mass index [BMI] 19.9 or less, adult<b r/> OKSANA,Jeimy ILL C 07/12 [facility] FEE 08731-9.40 [id number] Diagnos is: ICD-10- CM Z68.1 Body mass index [BMI] 19.9 or less, adult<b r/> OKSANA,J ILL C 07/12 [facility] Outpatient Encounter [id number] [id number] 07/13 [facility] 44903-8.40 [id number] 07/13 [facility] Outpatient Encounter 05340-7.40 [id number] 08/22 [facility] Outpatient [facility]counter 23476-3.40 [id number] 08/24 [facility] Encounter 97633-3.40 [id number] 08/24 [facility] Outpatient Encounter 01737-4.40 [id number] 08/24 [facility] Outpatient Encounter 94381-3.40 [id number] [facility] A 08/25 [facility] Outpatient Encounter 60712-5.40 [id number] 09/06 [facility] OFFICE O/P EST HI 40 MIN 94390-9.40 [id number] Diagnos is: ICD-10- CM N20.0 Calculu s of kidney< br/> KERFOOT,BR ANCH QUIÑONES 09/15 [facility] Outpatient Encounter 12966-9.40 [id number] 10/18 [facility] Out[facility] Encounter [id number] [id number] 10/21 [facility] Out[facility] Encounter [id number] [id number] 11/01 [facility] OFFICE O/P EST LOW 20 MIN 81928-3.40 [id number] Diagnos is: ICD-10- CM I71.40 Abdomin al aortic aneurys m, without rupture , unspeci fied
STONE,WYATT D H 11/03 [facility] Outpatient Encounter 17214-0.40 [id number] 11/04 [facility] Outpatient Encounter 69232-0.40 [id number] 11/09 [facility] Outpatient Encounter 34440-4.40 [id number] 11/14 [facility] Outpatient Encounter 48480-5.40 [id number] 11/22 [facility] Outpatient Encounter [id number] [id number] 11/23 [facility] Outpatient Encounter [id number] 11/28 [facility] Outpatient Encounter [id number] [id number] 11/30 [facility] Outpatient Encounter [id number] 11/30 [facility] OFF/OP EST MAY X REQ PHY/QHP [id number] Diagnos is: ICD-10- CM Z01.818 Encount er for other preproc edural examina tion
TIANNA CARR 12/09 [facility] FEE [id number] Diagnos is: ICD-10- CM 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<b r/> DANITA HOUSTON 12/12 [facility] SUBSEQ [id number] Diagnos is: ICD-10- CM 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<b r/> Jeimy GANDHI ILL C 12/12 [facility] Outpatient Encounter [id number] [id number] Diagnos is: ICD-10- CM I71.40 Abdomin al aortic aneurys m, without rupture , unspeci fied
EDMOND,CHRI STOPHER 12/14 [facility] HC PRO PHONE CALL 5-10 MIN [id number] [id number] Diagnos is: ICD-10- CM Z01.818 Encount er for other preproc edural examina tion
LARAWAY,SH BATOOL 12/14 [facility] Outpatient Encounter [id number] [id number] 12/15 [facility] Outpatient Encounter [id number] [id number] 12/15 [facility] Outpatient Encounter [id number] [id number] MELISSA JAVIER 12/15 [facility] Outpatient Encounter [id number] [id number] KARINA VALADEZT,ALICIA 12/15 [facility] Outpatient Encounter [id number] KERFOOT,BR ANCH QUIÑONES 12/15 [facility] CYSTO/URET ERO W/LITHOTRI PSY [id number] [id number] WARREN WEAVERI N E 12/15 [facility] Outpatient Encounter [id number] [id number] KARINA VALADEZT,ALICIA 12[facility]15 [facility] OFFICE O/P EST SF 10 MIN [id number] [id number] Diagnos is: ICD-10- CM Z01.818 Encount er for other preproc edural examina tion
CONCEPCION,MELISSA 12/15 [facility] POSTOP FOLLOW-UP VISIT [id number] [id number] Diagnos is: ICD-10- CM Z48.89 Encount er for other specifi ed surgica l afterca re
CONCEPCION,MELISSA 12/15 [facility] Outpatient Encounter [id number] [id number] HILARIO RIGGS FELIX L 12/15 [facility] Outpatient Encounter [id number] [id number] 12/16 [facility] CYSTOSCOPY [id number] [id number] Diagnos is: ICD-10- CM N20.0 Calculu s of kidney< br/> KERFOOT,BR ANCH QUIÑONES 12/20 [facility] Outpatient Encounter [id number] 12/20 [facility] Outpatient [facility]counter [id number] DANNY WRIGHT IN R 12/21 [place] [place] Outpatient Encounter [id number] 12/25 [facility] Outpatient Encounter [id number] 12/25 [facility] Outpatient Encounter [id number] 12/26 [place] [place] [place] Outpatient Encounter [id number] 12/27 [facility] Outpatient Encounter [id number] 12/27 [facility] Outpatient Encounter [id number] 12/28 [facility] Outpatient Encounter [id number] 12/29 [facility] Outpatient Encounter [id number] 01/17 [facility] Outpatient Encounter [id number] 01/25 [facility] Outpatient Encounter [id number] 02/15 [facility] OFFICE O/P EST HI 40 MIN [id number] Diagnos is: ICD-10- CM F01.A3 Vascula r dementi a, mild, with mood disturb ance
MARIO MEDINA 02/20 [facility] Outpatient Encounter [id number] 02/24 [facility] Outpatient Encounter [id number] 02/25 [facility] Outpatient Encounter [id number] [id number] 02/28 [facility] Outpatient [facility]counter [id number] 02/28 [facility] Outpatient Encounter [id number] 03/01 [facility] Outpatient Encounter [id number] 03/01 [place] [facility] [place] [facility] Outpatient Encounter [id number] [id number] 03/06 [place] [place] [facility] Outpatient Encounter [id number] 03/15 [place] [facility] [place] [place] Out[facility] Encounter [id number] 03/17 [place] [facility] [place] [facility] Outpatient Encounter [id number] 03/21 [place] [facility] [place] [facility] Outpatient Encounter [id number] [id number] 03/27 [facility] [place] [place] [facility] Outpatient Encounter [id number] 04/01 [facility] [place] Outpatient Encounter [id number] 04/05 [place] [facility] OFFICE O/P EST MOD 30 MIN [id number] Diagnos is: ICD-10- CM 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
KARYN VELASQUEZ NN 04/06 [facility] OFFICE O/P EST MOD 30 MIN [id number] Diagnos is: ICD-10- CM L89.890 Pressur e ulcer of other site, unstage able
KARYN VELASQUEZ NN 04/06 [facility] [place] Outpatient Encounter [id number] 04/07 [facility] [place] [place] [facility] Outpatient Encounter [id number] 04/07 [facility] [place] [place] [facility] Outpatient Encounter [id number] [id number] 04/08 [facility] Outpatient Encounter [id number] [id number] 04/08 [place] [facility] Outpatient Encounter [id number] 04/10 [facility] [place] [place] [facility] Outpatient Encounter [id number] [id number] 04/10 [facility] Outpatient Encounter [id number] [id number] 04/10 [place] [facility] TELEHEALTH FACILITY FEE [id number] Diagnos is: ICD-10- CM L89.43 Pressr ulcer of contig site of back, buttock and hip, stg 3
ADITI GARCIA 04/11 [facility] APPROPOS MTHD OFFLOADING RXD [id number] Diagnos is: ICD-10- CM L89.43 Pressr ulcer of contig site of back, buttock and hip, stg 3
Keaton QUINTERO 04/11 [facility] Outpatient Encounter [id number] 04/13 [facility] Outpatient Encounter [id number] [id number] 04/14 [facility] Outpatient Encounter [id number] 04/17 [facility] Outpatient Encounter [id number] [id number] 04/19 [facility] Outpatient Encounter [id number] [id number] 04/21 [facility] Outpatient Encounter [id number] 04/26 [facility] Outpatient Encounter [id number] 05/02 [facility] OFFICE O/P EST HI 40 MIN [id number] Diagnos is: ICD-10- CM N20.1 Calculu s of ureter< br/> KERFOOT,BR ANCH QUIÑONES 05/03 [facility] Outpatient Encounter [id number] 05/04 [facility] OFFICE O/P EST MOD 30 MIN [id number] Diagnos is: ICD-10- CM I71.40 Abdomin al aortic aneurys m, without rupture , unspeci fied
CASCADDVIMAL SHIELDS L 05/04 [facility] TELEHEALTH FACILITY FEE [id number] Diagnos is: ICD-10- CM 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<b r/> AUGER,ADITI 05/08 [facility] MED NUTRITION INDIV SUBSEQ [id number] Diagnos is: ICD-10- CM 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<b r/> PURNIMA RCOOK 05/08 [facility] Outpatient Encounter [id number] [id number] 05/12 [facility] Outpatient Encounter [id number] [id number] 05/12 [facility] FEE [id number] Diagnos is: ICD-10- CM L89.893 Pressur e ulcer of other site, stage 3
AUGWARRENADITI 05/16 [facility] APPROPOS MTHD OFFLOADING RXD [id number] Diagnos is: ICD-10- CM L89.43 Pressr ulcer of contig site of back, buttock and hip, stg 3
Keaton QUINTERO 05/16 [facility] Outpatient Encounter [id number] DAMARIS COCHRAN 05/17 [facility] Outpatient Encounter [id number] [id number] 05/17 [facility] Outpatient Encounter [id number] [id number] 05/19 [facility] Outpatient Encounter [id number] [id number] 05/23 [facility] Procedures Combined list of: 1) Procedures from [facility] facilities [facility], not all [place] non-surgical procedures are included; 2) All procedures from the Department of Defense facilities. Procedure Procedure Type Code Date Perfomer Comments Sourc e BILATERAL URETEROSCOPY LASER LITHOTRIPSY STENT PLACEMENT CYSTO/URETERO W/LITHOTRIPSY [id number] 12/16/2023 SHIRA SOTO [facility] BILATERAL URETEROSCOPY, ..., STENT PLACEMENT CYSTO/URETERO W/LITHOTRIPSY [id number] 04/29/2023 SHIRA SOTO [facility] BILATERAL URETEROSCOPY AND BILATERAL STENT PLACEMENT CYSTO/URETERO W/LITHOTRIPSY [id number] 03/04/2023 CORAL MORENO [facility] Social History Combined list of available smoking, tobacco, and other social history from Department of Defense and Veterans Affairs facilities. Social History Type Response Date Comment Source Tobacco smoking status NHIS VA-TOBACCO USE WI 30 MIN OF WAKEUP 02/21/2024 [facility] History of tobacco use VA-TOBACCO USE > 15 LESS THAN 30 YEARS 02/21/2024 [facility] History of tobacco use VA-TOBACCO USER EVERY DAY 05/14/2022 [facility] History of tobacco use CURRENT SMOKER 07/17/2021 [facility] History of tobacco use VA-VAAES TOBACCO USE CURRENT NRT DECLINE 07/01/2021 [facility] History of tobacco use CURRENT SMOKER 07/01/2021 [facility] History of tobacco use VA-TOBACCO USER EVERY DAY 12/08/2020 [facility] History of tobacco use [place]-TO[place]ACCO FORMER USER 12/08/2020 [facility] History of tobacco use VA-TOBACCO QUIT < 1 YEAR 06/27/2020 [facility] 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 facilities. Additional future care activities may be listed in the Assessment and Plan section. Date/Time Care Activity Care Activity Detail Facili ty 05/26/2024 AMBULATORY - NONE AMBULATORY - NONE [facility] 06/15/2024 AMBULATORY - NONE AMBULATORY - NONE [facility] 08/29/2024 AMBULATORY - NONE AMBULATORY - NONE [facility] 08/29/2024 AMBULATORY - SURGERY AMBULATORY - SURGERY [facility] 05/03/2024 Laboratory - Testing Director ry Order URORISK DIAGNOSTIC PROFILE(Q) 24H RENAL STONE KIT 24H URINE SP [facility] 05/17/2024 Consult Order CAREGIVER SUPPOR T PROGRAM OUTPT Cons Guest Services Representative's Choice [facility] 05/19/2024 Consult Order COMMUNITY CARE-P ALLIATIVE CARE Cons Guest Services Representative's Choice [facility] Advance Directives List of completed, amended, or rescinded Advance Directives on record at [facility] facilities. An actual copy of the Directive is not included. Date Advance Directive Provider Source 11/18/2017 ADVANCE DIRECTIVE RADHA FERNANDEZ [facility] 07/08/2017 ADVANCE DIRECTIVE DISCUSSION PURNIMA ROJAS [facility]
--- OUTSIDE RECORDS SUMMARY | 2024-05-24 19:16 | XMS_ITS | Encounter Summary ---
Author Name [facility] [place] [facility] Address [address] [place] [id number] Care Team Providers Care Boom Crane Operator Name Role Phone KYRA VELASQUEZ Primary Care Provider Unavailabl e Insurance Providers: All historical and current Section Date Range: From patient's date of to the date document was created. This section includes the names of all active insurance providers for the patient. Insurance Provider Type of Coverage Plan Name Start of Policy Coverage End of Policy Coverage Group Number Member ID Insurance Provider's Telephone Number Policy Ervin's Name Patient's Relationship to Policy Ervin [facility] (WNR) MEDICARE [facility](W NR) * Aug 23, 2023 [id number] ANNALISA LOYD ITE PATIENT [facility] (WNR) MEDICARE ADVANTAGE [facility] (WNR) Aug 23, 2020 [id number] [phone] ANNALISA LOYD ITE PATIENT [facility] (WNR) MEDICARE ADVANTAGE [facility](W NR) Aug 23, 2012 [id number] [phone] ANNALISA LOYD PATIENT Selected Encounter This section includes the information on record at [place] for the Encounter. Date/Time Encounter Type Encounter Description Reason Pro vider Source IHE Encounter Template Text not used by [facility] Advance Directives: All historical and current Section Date Range: From patient's date of to the date document was created. This section includes ALL of a patient's completed or amended [place] Advance and Rescinded Directives. The entries below indicate that a directive exists for the patient, but an actual copy is not included with this document. The data comes from all [place] facilities. Date Advance Directives Provider Source Nov 18, 2017 ADVANCE DIRECTIVE RADHA FERNANDEZ [facility] Jul 08, 2017 ADVANCE DIRECTIVE DISCUSSION PURNIMA ROJAS [facility]
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
--- OUTSIDE RECORDS SUMMARY | 2024-05-24 19:16 | XMS_ITS | Encounter Summary ---
Author Name [facility] [place] Address [address] [place] [address] Care Team Providers Care Dredge Captain Name Role Phone RON KYRA Primary Care Provider Unavailabl e Insurance Providers: [...] Ervin's Name Patient's Relationship to Policy Ervin [facility] (WNR) MEDICARE ADVANTAGE MCR(W NR) * Aug 23, 2023 [id number] ANNALISA LOYD ITE PATIENT [facility] (WNR) MEDICARE ADVANTAGE [facility] (WNR) Aug 23, 2020 [id number] [phone] ANNALISA LOYD ITE PATIENT [facility] (WNR) MEDICARE [facility](W NR) Aug 23, 2012 [id number] ANNALISA LOYD ITE PATIENT Selected Encounter This section includes the information on record at [place] for the Encounter. Date/Time Encounter Type Encounter Description Reason Provider Source Jun 17, 2023 01:15 PM OFF/OP EST MAY X REQ PHY/QHP PRIMARY CARE/MEDICINE ICD-10-CM Z23 Encounter for immunization CHIP VALIENTE E Encounter Template Text not used by [place] Assessments - Encounter Diagnoses This section includes the primary and secondary diagnoses documented for the Encounter. Date/Time Primary/Secondary Diagnosis Diagnosis Name Provider Source Jun 17, 2023 01:41 PM PRIMARY Encounter for immunization EDMAR VALIENTE [facility] Plan of Treatment: Future Appointments (+ 6 months) and Future Tests (+/- 45 days) The Plan of Treatment section includes future care activities for the patient from all [place] [facility]. This section includes future appointments and future orders which are active, pending or scheduled. Future Appointments This section includes appointments that were scheduled to occur 6 months from the date of the Encounter, up to a maximum of 20 appointments. The data comes from all [place] treatment facilities. Appointment Date/Time Appointment Type Appointme nt Facility Name Jul 12, 2023 01:00 PM AMBULATORY - NONE [place] [facility] Jul 12, 2023 01:01 PM AMBULATORY - MEDICINE [facility] Sep 15, 2023 01:00 PM [place] [facility] Oct 18, 2023 08:00 AM AMBULATORY - NONE [place] [facility] Nov 04, 2023 09:00 AM AMBUL[place]ORY [place] [facility] Nov 04, 2023 09:30 AM [place] [facility] Nov 29, 2023 11:30 AM AMBULATORY - NONE [facility] Dec 10, 2023 02:00 PM [place]ORY - [place] [facility] Dec 13, 2023 02:30 PM AMBULATORY - MEDICINE [facility] Dec 13, 2023 02:31 PM AMBULATORY - NONE [place] [facility] Dec 16, 2023 08:00 AM AMBULATORY - SURGERY [facility] Active, Pending, and Scheduled Orders This section includes a listing of several types of active, pending, and scheduled orders, including clinic medications orders, diagnostic test orders, procedure orders and consult orders; where the start date of the order is 45 days before the date of the Encounter or 45 days after the date of theEncounter. The data comes from all [place] treatment facilities. Test Date/Time Test Type Test Details Facility Name May 06, 2023 08:30 AM Laboratory - Chemi stry Order UREA NITROGEN LT GREEN(LI HEP) PLASMA SP [facility] May 06, 2023 08:30 AM Laboratory - Chemi stry Order CREATININE WITH eGFR PANEL LT GREEN(LI HEP) PLASMA [facility] Lab Results: +/- 30 days of the encounter This section includes the Chemistry and Hematology Lab Results on record with [facility] for the patient. Radiology Reports and Pathology Reports are provided separately, in subsequent sections. Lab Results This section contains the Chemistry/Hematology Results that were resulted 30 days before or 30 daysafter the date of the Encounter. Date/Time Source Result Type Result - Unit Interpretation Reference Range Comment Jun 16, 2023 01:20 PM [facility] PSA (COSTUME MISTRESS) Specimen Type: SERUM Comment: Tests performed on [place] Guard Range (405) [id number] Ordering Provider: THERON HEIN Report Released Date/Time: Dec 09, 2022 08:40 AM Reporting Lab: [facility] [address] [facility] [id number] Performing Lab: [facility] [address] [facility] [id number] PSA (COSTUME MISTRESS) 0.13 ng/mL 0-4.0 Immunizations: All administered on the encounter date This section contains immunizations associated to the Encounter. Immunization Series Date Issued Reaction Comments INFLUENZA, HIGH-DOSE, QUADRIVALENT Jun 17, 2023 Social History: Smoking Status (Most current) and Tobacco Use (All prior to encounter date) This section includes the most current, and the historical, smoking and tobacco- related health factors from the [place] facility where the Encounter took place. Current Smoking Status This section includes the most current smoking, or tobacco-related health factor, from the [place] facility where the Encounter took place. Date/Time Current Smoking Status Comment Facil ity May 14, 2022 09:30 AM VA-TOBACCO USER EVERY DAY [facility] Tobacco Use History This section includes a history of the smoking, or tobacco-related health factors, that were collected on or before the date of the Encounter. The data comes from the [place] facility where the Encounter took place. Date/Time Smoking Status/Tobacco Use Comment F acility May 14, 2022 09:30 AM VA-TOBACCO USE ADVICE [facility] May 14, 2022 09:30 AM VA-TOBACCO USE TRACK TEMPLATE MAKER NO [facility] May 14, 2022 09:30 AM VA-TOBACCO USE MED NO [facility] May 14, 2022 09:30 AM VA-TOBACCO USE WI 30 MIN OF WAKE UP [facility] May 14, 2022 09:30 AM VA-TOBACCO USER EVERY DAY [facility] Jun 27, 2020 09:30 AM VA-TOBACCO FORMER USER [facility] Jun 27, 2020 09:30 AM VA-TOBACCO QUIT < 1 YEAR [facility] December 28, 2018 11:23 AM VA-TOBACCO USE 30 YEARS OR MORE [facility] December 28, 2018 11:23 AM VA-TOBACCO USE ADVICE [facility] December 28, 2018 11:23 AM VA-TOBACCO USE TRACK TEMPLATE MAKER NO [facility] December 28, 2018 11:23 AM VA-TOBACCO USE MED NO [facility] December 28, 2018 11:23 AM VA-TOBACCO USE WI 30 MIN OF WAKE UP [facility] December 28, 2018 11:23 AM VA-TOBACCO USER EVERY DAY [facility] Aug 10, 2016 09:05 AM CURRENT SMOKER [facility] Aug 10, 2016 09:05 AM V1-PT NOT INTEREST ED IN QUIT TOBACCO USE [facility] Advance Directives: All historical and current Section Date Range: From patient's date of to the date document was created. This section includes ALL of a patient's completed or amended [place] Advance and Rescinded Directives. The entries below indicate that a directive exists for the patient, but an actual copy is not included with this document. The data comes from all [place] facilities. Date Advance Directives Provider Source Nov 18, 2017 ADVANCE DIRECTIVE RADHA FERNANDEZ [facility] Jul 08, 2017 ADVANCE DIRECTIVE DISCUSSION PURNIMA ROJAS [facility] Encounter Notes: All associated encounter notes This section contains the clinical notes associated to the Encounter. Date/Time Encounter Note(s) Provider Source Jun 17, 2023 01:40 PM NURSING IMMUNIZATI ON NOTE: LOCAL TITLE: IMMUNIZATION AND VACCINATION NOTE STANDARD TITLE: NURSING IMMUNIZATION NOTE DATE OF NOTE: JUN 17, 2023@13:40 ENTRY DATE: JUN 17, 2023@13:40:23 AUTHOR: LILLIAM VALIENTE EXP COSIGNER: URGENCY: STATUS: COMPLETED *Immunizations No INFLUENZA Immunizations on file within 1Y. Immunization Series Date Facility Reaction Info COVID-19 (KELLE), VECTOR-NR, RS* 1 11/29/2020 [facility]* <C> COVID-19 (KELLE), VECTOR-NR, RS* 2 07/10/2021 [facility]* <C> COVID-19 (MODERNA), MRNA, LNP-S,* 3 03/19/2022 [facility]* <C> <C> See the Detailed Immunizations Health Summary Component[DIM] for Comments No FLU,HI DOS Immunizations on file within 1Y. Recorded Pneumococcal Vaccinations Information: Reminder Term: VA-PNEUMOC PPSV23 IMMUNIZATION Immunization: PNEUMOCOCCAL POLYSACCHARIDE PPV23 08/10/2016@09:50:43 Reminder Term: VA-PNEUMOC PCV IMMUNIZATION (ALL CONJUGATE) Immunization: PNEUMOCOCCAL CONJUGATE PCV 13 08/12/2015@13:30 TD-ADULT given on TDAP given on 02/20/14 Date of last Zoster Vaccine Influenza Vaccine The patient was given the influenza VIS which lists the benefits and side effects of the vaccine and which reviews the risks of not receiving the flu vaccine. The VIS was reviewed with the patient and they were given an opportunity to ask questions. The patient was provided education on how to decrease the risk of influenza infection including social distancing and use of good hand hygiene. The patient denied any prior severe reaction to the flu vaccine or its components. The patient gave verbal consent to receive the vaccine. Influenza, High Dose, Quadrivalent (Fluzone - syringe) Administered: INFLUENZA, HIGH-DOSE, QUADRIVALENT Date Administered: Jun 17, 2023 13:15 Soldering Technician: SANOFI PASTEUR Lot: [id number] Exp Date: Feb 20, 2024 [facility]: [id number] Admin Route/Site: INTRAMUSCULAR/RIGHT DELTOID Dosage: 0.7mL Vaccine Information Statement(s): INFLUENZA(FLU) VACC(INACTIVATED OR RECOMBINANT)VIS Mar 28, 2021 (UKRAINIAN) Order By: Policy Administered By: Lilliam Valiente /vivian/ LILLIAM VALIENTE Signed: 06/17/2023 13:41 LILLIAM VALIENTE [facility]
--- OUTSIDE RECORDS SUMMARY | 2024-05-24 19:16 | XMS_ITS | Encounter Summary ---
Author Name [facility] [place] Address [address] [place] [address] Care Team Providers Care Hazardous Substances Engineer Name Role Phone KYRA VELASQUEZ Primary [...] Ervin's Name Patient's Relationship to Policy Ervin [facility] (WNR) MEDICARE ADVANTAGE MCR(W NR) * Aug 23, 2023 [id number] ANNALISA LOYD ITE PATIENT [facility] (WNR) MEDICARE ADVANTAGE [facility] (WNR) Aug 23, 2020 [id number] [phone] ANNALISA LOYD ITE PATIENT [facility] (WNR) MEDICARE ADVANTAGE MCR(W NR) Aug 23, 2012 [id number] 03 ANNALISA LOYD ITE PATIENT Selected Encounter This section includes the information on record at [place] for the Encounter. Date/Time Encounter Type Encounter Description Reason Pro vider Source May 26, 2023 10:55 AM Outpatient Encounter ADMIN PAT ACTIVTIES (MASNONCT) IHE Encounter Template Text not used by [place] Plan of Treatment: Future Appointments (+ 6 months) and Future Tests (+/- 45 days) The Plan of Treatment section includes future care activities for the patient from all [place] [facility]. This section includes future appointments and future orders which are active, pending or scheduled. Future Appointments This section includes appointments that were scheduled to occur 6 months from the date of the Encounter, up to a maximum of 20 appointments. The data comes from all [facility]. Appointment Date/Time Appointment Type Appointme nt Facility Name Jun 16, 2023 01:00 PM AMBULATORY - NONE [facility] Jun 16, 2023 01:30 PM AMBULATORY - SURGERY [facility] Jun 17, 2023 01:15 PM AMBULATORY - MEDICINE [facility] Jul 12, 2023 01:00 PM AMBULATORY - NONE [facility] Jul 12, 2023 01:01 PM AMBULATORY - MEDICINE [facility] Sep 15, 2023 01:00 PM AMBULATORY - SURGERY [facility] Oct 18, 2023 08:00 AM AM[place]ULATORY - NONE [place] [facility] Nov 04, 2023 09:00 AM AMBULATORY - SURGERY [facility] Nov 04, 2023 09:30 AM AMBULATORY - SURGERY [facility] Active, Pending, and Scheduled Orders This section includes a listing of several types of active, pending, and scheduled orders, including clinic medications orders, diagnostic test orders, procedure orders and consult orders; where the start date of the order is 45 days before the date of the Encounter or 45 days after the date of theEncounter. The data comes from all [facility]. Test Date/Time Test Type Test Details Facility Name May 06, 2023 08:30 AM Laboratory - Chemi stry Order UREA NITROGEN LT GREEN(LI HEP) PLASMA [facility] May 06, 2023 08:30 AM Laboratory - Chemi stry Order CREATININE WITH eGFR PANEL LT GREEN(LI HEP) PLASMA [facility] Lab Results: +/- 30 days of [...] 2023 01:20 PM [facility] PSA (DUST COLLECTOR OPERATOR) Specimen Type: SERUM Comment: Tests performed on [place] Outreach Liaison (405) [id number] Ordering Provider: THERON HEIN Report Released Date/Time: Dec 09, 2022 08:40 AM Reporting Lab: [facility] [address] [facility] [address] Performing Lab: [facility] [address] [facility] [id number] PSA (DUST COLLECTOR OPERATOR) 0.13 ng/mL 0-4.0 Social History: Smoking Status (Most current) and Tobacco Use (All prior to encounter date) This section includes the most current, and the historical, smoking and tobacco- related health factors from the [place] facility where the Encounter took place. Current Smoking Status This section includes the most current smoking, or tobacco-related health factor, from the [place] facility where the Encounter took place. Date/Time Current Smoking Status Comment Nataly ity Jul 17, 2021 02:27 PM CURRENT SMOKER REINIER Bhatia [facility] Tobacco Use History This section includes a history of the smoking, or tobacco-related health factors, that were collected on or before the date of the Encounter. The data comes from the [place] facility where the Encounter took place. Date/Time Smoking Status/Tobacco Use Comment F acility Jul 01, 2021 08:55 PM VA-VAAES TOBACCO U SE CURRENT NRT DECLINE [facility] Jul 01, 2021 02:41 PM CURRENT SMOKER REINIER Bhatia [facility] Dec 08, 2020 08:45 PM VA-TOBACCO USER EVERY DAY [facility] Dec 08, 2020 08:45 PM VA-VAAES TOBACCO U SE CURRENT NRT DECLINE [facility] Dec 08, 2020 06:58 PM VA-TOBACCO FORMER USER [facility] Apr 04, 2015 03:47 PM CURRENT SMOKER Less than a pack a day [facility] Apr 04, 2015 03:47 PM V1-PT NOT INTEREST ED IN QUIT TOBACCO USE [facility] Advance Directives: All historical and current Section Date Range: From patient's date of to the date document was created. This section includes ALL of a patient's completed or amended [place] Advance and Rescinded Directives. The entries below indicate that a directive exists for the patient, but an actual copy is not included with this document. The data comes from all [place] facilities. Date Advance Directives Provider Source Nov 18, 2017 ADVANCE DIRECTIVE RADHA FERNANDEZ SONYA [facility] Jul 08, 2017 ADVANCE DIRECTIVE DISCUSSION CRYSTALPURNIMA Jannette SONYA [facility] Radiology Reports: +/- 30 days of the encounter Radiology Reports For cases when an order for radiology services may have been completed prior to the date of the Encounter, the report list includes the Radiology Reports that were completed up to 30 days before dateof the Encounter. For cases when an order for radiology services may have been completed after the date of the Encounter, the report list also includes the Radiology Reports that were completed up to30 days after date of the Encounter. The data comes from all [place] treatment facilities. Date/Time Radiology Report Provider Source Apr 29, 2023 09:15 AM C-ARM FLUOROSCOPY, < 1 HOUR: GALINA LOYD [id number] -1945 M Exm Date: APR 29, 2023@09:15 Req Phys: CORBY OSORIO Pat Loc: [facility] G2RD (Req'g Img Loc: XRAY (OOS) Service: Unknown (Case [id number] COMPLETE) C-ARM FLUOROSCOPY, < 1 HOUR (RAD Detailed) CPT:87675 Proc Modifiers : OPERATING ROOM EXAM Reason for Study: bilat ureteroscopy laser lith stent plcmnt Clinical History: calculus of kidney Report Status: Verified Date Reported: APR 29, 2023 Date Verified: APR 29, 2023 Reference Library Assistant E-Sig:/ES/BENJAMÍN PIMENTEL Report: C-ARM FLUOROSCOPY, < 1 HOUR 04/29/2023 9:15 AM Impression: Fluoroscopy performed during urology service procedure. FINDINGS: Procedure performed with the C-arm fluoroscopy . Fluoroscopy time 70 seconds, dose 8.4 mGy. Comparison made with prior CT of the 09/01/2023 and prior cystoscopy and stent placement 03/04/2023 Fluoroscopic images consistent with given history of bilateral ureteroscopy and stent placement. Please see procedure note for further details. HISTORY: bilat ureteroscopy laser lith stent plcmnt, Primary Diagnostic Code: NO IMMEDIATE ATTENTION REQUIRED Primary Interpreting Staff: BENJAMÍN PIMENTEL, Staff Physician (Reference Library Assistant) /BENJAMÍN HYLTON Tobi [facility] Encounter Notes: All associated encounter notes This section contains the clinical notes associated to the Encounter. Date/Time Encounter Note(s) Provider Source May 26, 2023 10:55 AM ADMINISTRATIVE NOT E: LOCAL TITLE: CCC: SCHEDULING ADMINISTRATION STANDARD TITLE: ADMINISTRATIVE NOTE DATE OF NOTE: MAY 26, 2023@10:55:07 ENTRY DATE: MAY 26, 2023@10:55:07 AUTHOR: JAZZY DIXON COSIGNER: URGENCY: STATUS: COMPLETED Patient Demographics Patient Name: GALINA LOYD SSN: [id number] Patient Primary Address: [address] [place] [address]
[place] [address] Patient Primary Phone: [phone] Patient : 1945 Patient Age: 77 Caller/Recipient Relation to Patient: Self Administrative Administrative Note Reason: Medication Renewal Medications Refill/Renewal Request: patient would like a medication renewal mailed LACTOBACILLUS COMBO TAB TAKE ONE TABLET BY MOUTH EVERY DAY /vivian/ JAZZY DIXON Signed: 05/26/2023 10:55 Receipt Acknowledged By: * AWAITING SIGNATURE * LAUREN BILLY JR * AWAITING SIGNATURE * OJ GIL MARILYN [place] [facility]
--- OUTSIDE RECORDS SUMMARY | 2024-05-24 19:16 | XMS_ITS ---
Author Name [place] Address [address] [place] [address] Care Team Providers Care Weight And Test Bar Clerk Name Role Phone KYRA VELASQUEZ Primary Care [...] Ervin's Name Patient's Relationship to Policy Ervin [facility] (WNR) MEDICARE ADVANTAGE MCR(W NR) * Aug 23, 2023 [id number] [phone] ANNALISA LOYD ITE PATIENT [facility] (WNR) MEDICARE [facility] (WNR) Aug 23, 2020 [id number] [phone] ANNALISA LOYD ITE PATIENT [facility] (WNR) MEDICARE ADVANTAGE MCR(W NR) Aug 23, 2012 [id number] [phone] ANNALISA LOYD ITE PATIENT Selected Encounter This section includes the information on record at [place] for the Encounter. Date/Time Encounter Type Encounter Description Reason Pro vider Source Jun 02, 2023 12:43 PM Outpatient Encounter ADMIN PAT ACTIVTIES (MASNONCT) IHE Encounter Template Text not used by [place] Plan of Treatment: Future Appointments (+ 6 months) and Future Tests (+/- 45 days) The Plan of Treatment section includes future care activities for the patient from all [place] [facility] This section includes future appointments and future orders which are active, pending or scheduled. Future Appointments This section includes appointments that were scheduled to occur 6 months from the date of the Encounter, up to a maximum of 20 appointments. The data comes from all [facility]. Appointment Date/Time Appointment Type Appointme nt Facility Name Jun 16, 2023 01:00 PM AMBULATORY - NONE [facility] Jun 16, 2023 01:30 PM AMBULATORY - SURGERY [facility] Jun 17, 2023 01:15 PM AMBULATORY - MEDICINE [facility] Jul 12, 2023 01:00 PM AMBULATORY - NONE [facility] Jul 12, 2023 01:01 PM AMBULATORY - MEDICINE [facility] Sep 15, 2023 01:00 PM AMBULATORY - SURGERY [facility] Oct 18, 2023 08:00 AM AMBULATORY - NONE [place] [facility] Nov 04, 2023 09:00 AM AMBULATORY - SURGERY [facility] Nov 04, 2023 09:30 AM AMBULATORY - SURGERY [facility] Nov 29, 2023 11:30 AM AMBULATORY - NONE [facility] Active, Pending, and Scheduled Orders This section includes a listing of several types of active, pending, and scheduled orders, including clinic medications orders, diagnostic test orders, procedure orders and consult orders; where the start date of the order is 45 days before the date of the Encounter or 45 days after the date of theEncounter. The data comes from all [facility]. Test Date/Time Test Type Test Details Facility Name May 06, 2023 08:30 AM Laboratory - Chemi stry Order UREA NITROGEN LT GREEN(LI HEP) PLASMA [facility] May 06, 2023 08:30 AM Laboratory - Chemi stry Order CREATININE WITH eGFR PANEL LT GREEN(LI HEP) PLASMA [facility] Lab Results: +/- 30 days of the encounter This section includes the Chemistry and Hematology Lab Results on record with [place] for the patient. Radiology Reports and Pathology Reports are provided separately, in subsequent sections. Lab Results This section contains the Chemistry/Hematology Results that were resulted 30 days before or 30 daysafter the date of the Encounter. Date/Time Source Result Type Result - Unit Interpretation Reference Range Comment Jun 16, 2023 01:[address] [facility] PSA (PATTERNMAKER PLASTICS) Specimen Type: SERUM Comment: Tests performed on [place] Chief Digital Officer (405) [id number] Ordering Provider: THERON HEIN Report Released Date/Time: Dec 09, 2022 08:40 AM Reporting Lab: [facility] [address] [place] [place] [address] Performing Lab: [facility] [address] [facility] [address] PSA (PATTERNMAKER PLASTICS) 0.13 ng/mL 0-4.0 Social History: Smoking Status (Most current) and Tobacco Use (All prior to encounter date) This section includes the most current, and the historical, smoking and tobacco- related health factors from the [place] facility where the Encounter took place. Current Smoking Status This section includes the most current smoking, or tobacco-related health factor, from the [place] facility where the Encounter took place. Date/Time Current Smoking Status Comment Nataly ity Jul 17, 2021 02:27 PM CURRENT SMOKER REINIER Bhatia [facility] Tobacco Use History This section includes a history of the smoking, or tobacco-related health factors, that were collected on or before the date of the Encounter. The data comes from the [place] facility where the Encounter took place. Date/Time Smoking Status/Tobacco Use Comment F acility Jul 01, 2021 08:55 PM VA-VAAES TOBACCO U SE CURRENT NRT DECLINE [facility] Jul 01, 2021 02:41 PM CURRENT SMOKER REINIER [facility] Dec 08, 2020 08:45 PM VA-TOBACCO USER EVERY DAY [facility] Dec 08, 2020 08:45 PM VA-VAAES TOBACCO U SE CURRENT NRT DECLINE [facility] Dec 08, 2020 06:58 PM VA-TOBACCO FORMER USER [facility] Apr 04, 2015 03:47 PM CURRENT SMOKER Less than a pack a day [facility] Apr 04, 2015 03:47 PM V1-PT NOT INTEREST ED IN QUIT TOBACCO USE SONYA [facility] Advance Directives: All historical and current Section Date Range: From patient's date of to the date document was created. This section includes ALL of a patient's completed or amended [place] Advance and Rescinded Directives. The entries below indicate that a directive exists for the patient, but an actual copy is not included with this document. The data comes from all [place] facilities. Date Advance Directives Provider Source Nov 18, 2017 ADVANCE DIRECTIVE RADHA FERNANDEZ [facility] Jul 08, 2017 ADVANCE DIRECTIVE DISCUSSION PURNIMA ROJAS [facility] Encounter Notes: All associated encounter notes This section contains the clinical notes associated to the Encounter. Date/Time Encounter Note(s) Provider Source Jun 02, 2023 12:43 PM ADMINISTRATIVE NOT E: LOCAL TITLE: Has Admin Note STANDARD TITLE: ADMINISTRATIVE NOTE DATE OF NOTE: JUN 02, 2023@12:43 ENTRY DATE: JUN 02, 2023@12:43:37 AUTHOR: GUILHERME PATINO EXP COSIGNER: URGENCY: STATUS: COMPLETED Has Admin Note Has ADDENDA [place] left voicemail stating he needed to cancel appt in [place] on 06/14/23, left a contact number: [phone]. TW took no action on appt, but has alerted [employer] who had scheduled initial appt. /vivian/ GUILHERME MENDOZA Signed: 06/02/2023 12:46 Receipt Acknowledged By: 06/03/2023 09:16 /vivian/ ADITI GARCIA Health Division Human Resources Manager 06/03/2023 ADDENDUM STATUS: COMPLETED TW returned patients called and spoke with spouse to r/s NUTRITION appt. Scheduled for 07/05/23 @ 2:00pm. /vivian/ ADITI GARCIA Health Division Human Resources Manager Signed: 06/03/2023 09:17 GUILHERME PATINO [facility]
--- OUTSIDE RECORDS SUMMARY | 2024-05-24 19:17 | XMS_ITS | Encounter Summary ---
Author Name [place] Address [address] [place] [address] Care Team Providers Care Program Director Group Work Name Role Phone KYRA VELASQUEZ Primary Care [...] Ervin's Name Patient's Relationship to Policy Ervin [facility] (WNR) MEDICARE ADVANTAGE MCR(W NR) * Aug 23, 2023 [id number] ANNALISA LOYD ITE PATIENT [facility] (WNR) MEDICARE ADVANTAGE [facility] (WNR) Aug 23, 2020 [id number] [phone] ANNALISA LOYD ITE PATIENT [facility] (WNR) MEDICARE ADVANTAGE MCR(W NR) Aug 23, 2012 [id number] ANNALISA LOYD ITE PATIENT Selected Encounter This section includes the information on record at [place] for the Encounter. Date/Time Encounter Type Encounter Description Reason Pro vider Source Jul 05, 2023 08:13 AM Outpatient Encounter ADMIN PAT ACTIVTIES (MASNONCT) IHE Encounter Template Text not used by [place] Plan of Treatment: Future Appointments (+ 6 months) and Future Tests (+/- 45 days) The Plan of Treatment section includes future care activities for the patient from all [place] treatmentfacilities. This section includes future appointments and future orders which are active, pending or scheduled. Future Appointments This section includes appointments that were scheduled to occur 6 months from the date of the Encounter, up to a maximum of 20 appointments. The data comes from all [place] treatment facilities. Appointment Date/Time Appointment Type Appointme nt Facility Name Jul 12, 2023 01:00 PM AMBULATORY - NONE [place] [facility] Jul 12, 2023 01:01 PM AMBULATORY - MEDICINE [facility] Sep 15, 2023 01:00 PM AMB[place]ORY [place] [facility] Oct 18, 2023 08:00 AM AMBULATORY - NONE [place] [facility] Nov 04, 2023 09:00 AM AMBULATORY [place] [facility] Nov 04, 2023 09:30 AM AMBULATORY [place] [facility] Nov 29, 2023 11:30 AM AMBULATORY - NONE [facility] Dec 10, 2023 02:00 PM AMBUL[place]ORY [place] [facility] Dec 13, 2023 02:30 PM AMBULATORY - MEDICINE [facility] Dec 13, 2023 02:31 PM AMBULATORY - NONE [place] [facility] Dec 16, 2023 08:00 AM AMBULATORY [place] [facility] Dec 21, 2023 01:30 PM [facility] Lab Results: +/- 30 days of the encounter This section includes the Chemistry and Hematology Lab Results on record with [place] for the patient. Radiology Reports and Pathology Reports are provided separately, in subsequent sections. Lab Results This section contains the Chemistry/Hematology Results that were resulted 30 days before or 30 daysafter the date of the Encounter. Date/Time Source Result Type Result - Unit Interpretation Reference Range Comment Jun 16, 2023 01:20 PM [facility] PSA (THEATRE ARTS PROFESSOR) Specimen Type: SERUM Comment: Tests performed on [place] Safety Deposit Clerk (405) [id number] Ordering Provider: THERON HEIN Report Released Date/Time: Dec 09, 2022 08:40 AM Reporting Lab: [facility] [address] [facility] [address] Performing Lab: [facility] [address] [facility] [address] PSA (THEATRE ARTS PROFESSOR) 0.13 ng/mL 0-4.0 Social History: Smoking Status (Most current) and Tobacco Use (All prior to encounter date) This section includes the most current, and the historical, smoking and tobacco- related health factors from the [place] facility where the Encounter took place. Current Smoking Status This section includes the most current smoking, or tobacco-related health factor, from the [place] facility where the Encounter took place. Date/Time Current Smoking Status Comment Facil ity Jul 17, 2021 02:27 PM CURRENT SMOKER REINIER [facility] Tobacco Use History This section includes a history of the smoking, or tobacco-related health factors, that were collected on or before the date of the Encounter. The data comes from the [place] facility where the Encounter took place. Date/Time Smoking Status/Tobacco Use Comment F acility Jul 01, 2021 08:55 PM VA-VAAES TOBACCO U SE CURRENT NRT DECLINE [facility] Jul 01, 2021 02:41 PM CURRENT SMOKER REINIER [facility] Dec 08, 2020 08:45 PM VA-TOBACCO USER EVERY DAY [facility] Dec 08, 2020 08:45 PM VA-VAAES TOBACCO U SE CURRENT NRT DECLINE [facility] Dec 08, 2020 06:58 PM VA-TOBACCO FORMER USER [facility] Apr 04, 2015 03:47 PM CURRENT SMOKER Less than a pack a day [facility] Apr 04, 2015 03:47 PM V1-PT NOT INTEREST ED IN QUIT TOBACCO USE [facility] Advance Directives: All historical and current Section Date Range: From patient's date of to the date document was created. This section includes ALL of a patient's completed or amended [place] Advance and Rescinded Directives. The entries below indicate that a directive exists for the patient, but an actual copy is not included with this document. The data comes from all [place] facilities. Date Advance Directives Provider Source Nov 18, 2017 ADVANCE DIRECTIVE RADHA FERNANDEZ [facility] Jul 08, 2017 ADVANCE DIRECTIVE DISCUSSION PURNIMA ROJAS [facility] Radiology Reports: +/- 30 days [...] the Encounter. The data comes from all [place] treatment facilities. Date/Time Radiology Report Provider Source Aug 04, 2023 12:45 PM UNLISTED COPIES FO R OUTSIDE REFERRAL: GALINA LOYD [id number] -1945 M Exm Date: AUG 04, 2023@12:45 Req Phys: TODD SANTAMARIA Loc: [facility] RAD MISC XRAY B1RC (Req'g Img Loc: XRAY (OOS) Service: Unknown (Case [id number] COMPLETE) UNLISTED COPIES FOR OUTSIDE REFER(RAD Detailed) CPT:63455 Reason for Study: UNLISTED COPIES FOR OUTSIDE REFERRAL Clinical History: UNLISTED COPIES FOR OUTSIDE REFERRAL. REQUESTED BY SAAD JOHNSON [id number], [id number], [id number]. PICKED UP BY SAAD 08/04/23 Report Status: Electronically Filed Date Reported: Report: Copies (CD) made for outside facility. Impression: Copies (CD) made for outside facility Primary Diagnostic Code: VERIFIED BY: / *ELECTRONICALLY FILED* [facility] Encounter Notes: All associated encounter notes This section contains the clinical notes associated to the Encounter. Date/Time Encounter Note(s) Provider Source Jul 05, 2023 08:13 AM ADMINISTRATIVE NOT E: LOCAL TITLE: Has Admin Note STANDARD TITLE: ADMINISTRATIVE NOTE DATE OF NOTE: JUL 05, 2023@08:13 ENTRY DATE: JUL 05, 2023@08:13:34 AUTHOR: SHANNON MATHUR COSIGNER: URGENCY: STATUS: COMPLETED Has Admin Note Has ADDENDA Reason for call Clinic Name:lit th nutrition pat The pt's (Darrel)called to cancel today's appt. Please call to r/s. /vivian/ SHANNON MATHUR Signed: 07/05/2023 08:14 Receipt Acknowledged By: 07/05/2023 09:25 /es/ ADITI GARCIA Health Guide Rail Cleaner 07/05/2023 08:20 /es/ PURNIMA GANDHI RD,CD CLINICAL DIETITIAN 07/05/2023 ADDENDUM STATUS: COMPLETED TW called and r/s TH NUTRITION appt. Negotiated date and time with spouse. Scheduled: 07/12/2023 @ 1:00pm. /vivian/ ADITI GARCIA Health Guide Rail Cleaner Signed: 07/05/2023 10:07 SHANNON MATHUR [facility]
--- OUTSIDE RECORDS SUMMARY | 2024-05-24 19:17 | XMS_ITS | Encounter Summary ---
Author Name [place] Address [address] [place] [id number] Care Team Providers Care Narrow Fabric Calenderer Name Role Phone KYRA VELASQUEZ Primary Care [...] Ervin's Name Patient's Relationship to Policy Ervin [facility] (WNR) MEDICARE [facility](W NR) * Aug 23, 2023 [id number] ANNALISA LOYD ITE PATIENT [facility] (WNR) MEDICARE ADVANTAGE [facility] (WNR) Aug 23, 2020 [id number] [phone] ANNALISA LOYD ITE PATIENT [facility] (WNR) MEDICARE ADVANTAGE [facility](W NR) Aug 23, 2012 [id number] [phone] ANNALISA LOYD PATIENT Selected Encounter This section includes the information on record at [place] for the Encounter. Date/Time Encounter Type Encounter [...] this document. The data comes from all [place] facilities. Date Advance Directives Provider Source Nov 18, 2017 ADVANCE DIRECTIVE RADHA FERNANDEZ [facility] Jul 08, 2017 ADVANCE DIRECTIVE DISCUSSION PURNIMA ROJAS [facility]
--- OUTSIDE RECORDS SUMMARY | 2024-05-24 19:17 | XMS_ITS | Encounter Summary ---
Author Name Department [place] Organization [place] Address [address] [place] [address] Care Team Providers Care Hairpiece Stylist Name Role Phone RON KYRA Primary Care [...] Ervin's Name Patient's Relationship to Policy Ervin [facility] (WNR) MEDICARE ADVANTAGE [facility](W NR) * Aug 23, 2023 [id number] ANNALISA LOYD ITE PATIENT [facility] MCR (WNR) MEDICARE ADVANTAGE MCR (WNR) Aug 23, 2020 [id number] [phone] ANNALISA LOYD ITE PATIENT [facility] MCR (WNR) MEDICARE ADVANTAGE [facility](W NR) Aug 23, 2012 [id number] ANNALISA LOYD ITE PATIENT Selected Encounter This section includes the information on record at [place] for the Encounter. Date/Time Encounter Type Encounter Description Reason Provider Source Jul 12, 2023 01:01 PM TELEHEALTH FACILITY FEE NUTRITION/DIETETIC S-INDIVIDUAL ICD-10-CM Z68.1 Body mass index [BMI] 19.9 or less, adult [place]IMA CHRISTIAN [facility] Encounter Template Text not used by [place] Assessments - Encounter Diagnoses This section includes the primary and secondary diagnoses documented for the Encounter. Date/Time Primary/Secondary Diagnosis Diagnosis Name Provider Source Jul 13, 2023 09:21 AM PRIMARY Body mass index [BMI] 19.9 or less, adult MAMTA VILLARREAL [facility] Plan of Treatment: Future Appointments (+ 6 months) and Future Tests (+/- 45 days) The Plan of Treatment section includes future care activities for the patient from all [place] treatmentfacilities. This section includes future appointments and future orders which are active, pending or scheduled. Future Appointments This section includes appointments that were scheduled to occur 6 months from the date of the Encounter, up to a maximum of 20 appointments. The data comes from all [place] treatment facilities. Appointment Date/Time Appointment Type Appointme nt Facility Name Sep 15, 2023 01:00 PM [facility] [place] [facility] Oct 18, 2023 08:00 AM AMBULATORY - NONE [place] [facility] Nov 04, 2023 09:00 AM [place]UL[place]ORY [place] [facility] Nov 04, 2023 09:30 AM AMBULATORY - SURG[place] [facility] Nov 29, 2023 11:30 AM AMBULATORY - NONE [facility] Dec 10, 2023 02:00 PM AMBULATORY - SURGERY [place] [facility] Dec 13, 2023 02:30 PM AMBULATORY - MEDICINE [facility] Dec 13, 2023 02:31 PM AMBULATORY - NONE [place] [facility] Dec 16, 2023 08:00 AM AM[place]UL[place]ORY [place] [facility] Dec 21, 2023 01:30 PM AMBULATORY - SURGERY [place] [facility] Lab Results: +/- 30 days of the [...] Range Comment Jun 16, 2023 01:20 PM [facility] PSA (HOGSHEAD PACKER) Specimen Type: SERUM Comment: Tests performed on [place] Dipper And Drier (586) [id number] Ordering Provider: THERON HEIN Report Released Date/Time: Dec 09, 2022 08:40 AM Reporting Lab: [facility] [address] [facility] [address] Performing Lab: [facility] [address] [facility] [address] PSA (HOGSHEAD PACKER) 0.13 ng/mL 0-4.0 Vital Signs: All taken on the encounter date This section contains inpatient and outpatient Vital Signs collected on the date of the Encounter. Date/Time Temperature Pulse Blood Pressure Respiratory Rate SP02 Pain Height Weight Body Mass Index Source Jul 12, 2023 01:05 PM 125 lb 18 [facility] Social History: Smoking Status (Most current) and Tobacco Use (All prior to encounter date) This section includes the most current, and the historical, smoking and tobacco- related health factors from the [place] facility where the Encounter took place. Current Smoking Status This section includes the most current smoking, or tobacco-related health factor, from the [place] facility where the Encounter took place. Date/Time Current Smoking Status Comment Facil ity May 14, 2022 09:30 AM VA-TOBACCO USER EVERY DAY [facility] Tobacco Use History This section includes a history of the smoking, or tobacco-related health factors, that were collected on or before the date of the Encounter. The data comes from the [place] facility where the Encounter took place. Date/Time Smoking Status/Tobacco Use Comment F acility May 14, 2022 09:30 AM VA-TOBACCO USE ADVICE [facility] May 14, 2022 09:30 AM VA-TOBACCO USE ENVIRONMENTAL CONSTRUCTION ENGINEER NO [facility] May 14, 2022 09:30 [...] December 28, 2018 11:23 AM VA-TOBACCO USE ENVIRONMENTAL CONSTRUCTION ENGINEER NO [facility] December 28, 2018 11:23 [...] ALL of a patient's completed or amended [place] Advance and Rescinded Directives. The entries below indicate that a directive exists for the patient, but an actual copy is not included with this document. The data comes from all [place] facilities. Date Advance Directives Provider Source Nov 18, 2017 ADVANCE DIRECTIVE RADHA FERNANDEZ [facility] Jul 08, 2017 ADVANCE DIRECTIVE DISCUSSION PURNIMA ROJAS [facility] Radiology Reports: +/- 30 days of the [...] the Encounter. The data comes from all [place] treatment facilities. Date/Time Radiology Report Provider Source Aug 04, 2023 12:45 PM UNLISTED COPIES FO R OUTSIDE REFERRAL: GALINA LOYD [id number] -1945 M Ex Date: AUG 04, 2023@12:45 Req Phys: TODD SANTAMARIA Loc: [facility] RAD MISC XRAY B1RC (Req'g Img Loc: XRAY (OOS) Service: Unknown (Case [id number] COMPLETE) UNLISTED COPIES FOR OUTSIDE REFER(RAD Detailed) CPT:21767 Reason for Study: UNLISTED COPIES FOR OUTSIDE REFERRAL Clinical History: UNLISTED COPIES FOR OUTSIDE REFERRAL. REQUESTED BY SAAD JOHNSON [id number], [id number], [id number]. PICKED UP BY SAAD 08/04/23 Report Status: Electronically Filed Date Reported: Report: Copies (CD) made for outside facility. Impression: Copies (CD) made for outside facility Primary Diagnostic Code: VERIFIED BY: / *ELECTRONICALLY FILED* [facility] Encounter Notes: All associated encounter notes This section contains the clinical notes associated to the Encounter. Date/Time Encounter Note(s) Provider Source Jul 12, 2023 01:06 PM TELEHEALTH NOTE: LOCAL TITLE: Telehealth Claims Attorney Note STANDARD TITLE: TELEHEALTH NOTE DATE OF NOTE: JUL 12, 2023@13:06 ENTRY DATE: JUL 12, 2023@13:06:22 AUTHOR: MAMTA VILLARREAL COSIGNER: URGENCY: STATUS: COMPLETED The patient was identified using the following patient identifiers: Full Name, Date of , Full social security number They were informed verbally that they were here to be seen via telehealth by a provider at a remote site. It was explained to them that this was entirely voluntary, and they always have the option to drive to [place] to see the provider in person. They understand if they decline to participate via telehealth, it will in no way adversely impact their continued access to health care services. They consented verbally to being seen today via telehealth by a remote provider and understood that the visit could be terminated at any time, if that was their wish. Clinical Video on Demand (CVOD) Disclosure & Verbal Informed Consent: Visit was conducted by Clinical Video Telehealth (CVT). Exam camera was operated by the CVOD provider. Verbal informed consent was obtained at time of the CVOD visit, after providing the patient with a full explanation of CVT, alternatives for obtaining care through an in-person visit at the nearest [place] clinical site offering the requested service, and the patient's right of refusal, at any time, for any Telehealth. Emergency contact information was obtained as follows: Current Location: [facility] Current Address: [address] [place], [place] [id number] County: [place] Emergency Contact Name: Mamta Villarreal Emergency Relationship: TCT Emergency Number: [phone] /es/ MAMTA VILLARREAL Health Claims Attorney Signed: 07/12/2023 13:07 [facility]
--- OUTSIDE RECORDS SUMMARY | 2024-05-24 19:17 | XMS_ITS ---
Author Name [facility] Address [address] [place] [address] Care Team Providers Care Photography Instructor Name Role Phone KYRA VELASQUEZ Primary Care [...] Ervin's Name Patient's Relationship to Policy Ervin [facility] (WNR) MEDICARE ADVANTAGE MCR(W NR) * Aug 23, 2023 [id number] ANNALISA LOYD ITE PATIENT [facility] (WNR) MEDICARE ADVANTAGE [facility] (WNR) Aug 23, 2020 [id number] [phone] ANNALISA LOYD ITE PATIENT [facility] (WNR) MEDICARE ADVANTAGE MCR(W NR) Aug 23, 2012 [id number] [phone] ANNALISA LOYD ITE PATIENT Selected Encounter This section includes the information on record at [facility] for the Encounter. Date/Time Encounter Type Encounter Description Reason Pro vider Source Jun 30, 2023 11:32 AM Outpatient Encounter ADMIN PAT ACTIVTIES (MASNONCT) [...] PM AMBULATORY - [place] [facility] Oct 18, 2023 08:00 AM AMBULATORY - NONE [place] [facility] Nov 04, 2023 09:00 AM AMBULATORY - [place] [facility] Nov 04, 2023 09:30 AM AMBULATORY - [place] [facility] Nov 29, 2023 11:30 AM AMBULATORY - NONE [facility] Dec 10, 2023 02:00 PM AMBULATORY - [place] [facility] Dec 13, 2023 02:30 PM AMBULATORY - MEDICINE [place] [facility] Dec 13, 2023 02:31 PM AMBULATORY - NONE [place] [facility] Dec 16, 2023 08:00 AM AMBUL[place] - [place] [facility] Dec 21, 2023 01:30 PM [facility] Lab Results: +/- 30 days of the [...] Range Comment Jun 16, 2023 01:[facility] PSA (COSTUMER) Specimen Type: SERUM Comment: Tests performed on [employer] (405) [id number] Ordering Provider: THERON HEIN Report Released Date/Time: Dec 09, 2022 08:40 AM Reporting Lab: SONYA GAYLE [facility] [address] [id number] Performing Lab: SONYA GAYLE Tobi [facility] [address] [id number] PSA (COSTUMER) 0.13 ng/mL 0-4.0 Social History: Smoking Status [...] 2021 02:27 PM CURRENT SMOKER REINIER GAYLE [facility] Tobacco Use History This section includes a history of the smoking, or tobacco-related health factors, that were collected on or before the date of the Encounter. The data comes from the [place] facility where the Encounter took place. Date/Time Smoking Status/Tobacco Use Comment F acility Jul 01, 2021 08:55 PM VA-VAAES TOBACCO U SE CURRENT NRT DECLINE [facility] [facility] Jul 01, 2021 02:41 PM CURRENT SMOKER REINIER GAYLE [facility] Dec 08, 2020 08:45 PM VA-TOBACCO USER EVERY DAY [facility] Dec 08, 2020 08:45 PM VA-VAAES TOBACCO U SE CURRENT NRT DECLINE [facility] Dec 08, 2020 06:58 PM VA-TOBACCO FORMER USER [facility] Apr 04, 2015 03:47 PM CURRENT SMOKER Less than a pack a day [facility] Apr 04, 2015 03:47 PM V1-PT NOT INTEREST ED IN QUIT TOBACCO USE [facility] Advance Directives: All historical and [...] Nov 18, 2017 ADVANCE DIRECTIVE RADHA FERNANDEZ [facility] Jul 08, 2017 ADVANCE DIRECTIVE DISCUSSION CRYSTALPURNIMA Jannette SONYA NALINI T [facility] Encounter Notes: All associated encounter notes This section contains the clinical notes associated to the Encounter. Date/Time Encounter Note(s) Provider Source Jul 01, 2023 12:32 AM ADDENDUM: LOCAL TITLE: Addendum STANDARD TITLE: ADDENDUM DATE OF NOTE: JUL 01, 2023@00:32:25 ENTRY DATE: JUL 01, 2023@00:32:26 AUTHOR: KYRA VELASQUEZ COSIGNER: URGENCY: STATUS: COMPLETED chart review-antiepilectic drug for recurrent seizures that was being rxed by his cc-neurologist [place] Please inform patient that a 30 day supply has been ordered but he should follow up with cc neurologist and they should be prescribing the medication. /vivian/ KYRA VELASQUEZ M.D Signed: 07/01/2023 00:33 Receipt Acknowledged By: 07/01/2023 14:05 /huber GIL RN --- Original Document --- 06/30/23 CCC: SCHEDULING ADMINISTRATION: Patient Demographics Patient Name: GALINA LOYD Patient Primary Phone: [phone] Patient Primary Address: [address] [place] [address] Patient : 1945 Patient Age: 77 Caller/Recipient Relation to Patient: Caregiver Caller Name: Darrel Administrative Administrative Note Reason: Medication Renewal Medications Refill/Renewal Request: Please renew and mail: LACOSAMIDE 50MG TAB /es/ JUANA TOVAR Wildlife Ecology Professor Signed: 06/30/2023 11:32 Receipt Acknowledged By: 07/01/2023 00:32 /huber VELASQUEZ M.D 07/01/2023 14:04 /huber GIL RN 06/30/2023 ADDENDUM STATUS: COMPLETED LACOSAMIDE 50MG TAB TAKE FOUR TABLETS BY MOUTH TWICE A DAY - MAY TAKE 2 EXTRA TABLETS (100MG) IF ANY UTI, FEVER OR ANY SURGICAL PROCEDURE. *NOTE NEW STRENGTH/DIRECTIONS* /huber GIL RN Signed: 06/30/2023 12:48 07/01/2023 ADDENDUM STATUS: COMPLETED contact with of rosey orozco tin the future to request medication through Dr. Villa. /huber GIL RN Signed: 07/01/2023 14:05 KYRA VELASQUEZ [facility] Jun 30, 2023 11:32 AM ADMINISTRATIVE NOT E: LOCAL TITLE: CCC: SCHEDULING ADMINISTRATION STANDARD TITLE: ADMINISTRATIVE NOTE DATE OF NOTE: JUN 30, 2023@11:32:29 ENTRY DATE: JUN 30, 2023@11:32:29 AUTHOR: JUANA TOVAR COSIGNER: URGENCY: STATUS: COMPLETED CCC: SCHEDULING ADMINISTRATION Has ADDENDA Patient Demographics Patient Name: GALINA LOYD Patient Primary Phone: [phone] Patient Primary [address]: [address] [place] [address] Patient : 1945 Patient Age: 77 Caller/Recipient Relation to Patient: Caregiver Caller Name: Darrel Administrative Administrative Note Reason: Medication Renewal Medications Refill/Renewal Request: Please renew and mail: LACOSAMIDE 50MG TAB /vivian/ JUANA TOVAR Wildlife Ecology Professor Signed: 06/30/2023 11:32 Receipt Acknowledged By: 07/01/2023 00:32 /vivian/ KYRA VELASQUEZ M.D 07/01/2023 14:04 /vivian/ OJ GIL RN 06/30/2023 ADDENDUM STATUS: COMPLETED LACOSAMIDE 50MG TAB TAKE FOUR TABLETS BY MOUTH TWICE A DAY - MAY TAKE 2 EXTRA TABLETS (100MG) IF ANY UTI, FEVER OR ANY SURGICAL PROCEDURE. *NOTE NEW STRENGTH/DIRECTIONS* /huber GIL RN Signed: 06/30/2023 12:48 07/01/2023 ADDENDUM STATUS: COMPLETED chart review-antiepilectic drug for recurrent seizures that was being rxed by his cc-neurologist [place] Please inform patient that a 30 day supply has been ordered but he should follow up with cc neurologist and they should be prescribing the medication. /es/ KYRA VELASQUEZ M.D Signed: 07/01/2023 00:33 Receipt Acknowledged By: 07/01/2023 14:05 /vivian/ OJ GIL RN 07/01/2023 ADDENDUM STATUS: COMPLETED contact with of nidia- understands thaq tin the future to request medication through Dr. Villa. /es/ OJ GIL RN Signed: 07/01/2023 14:05 JUANA TOVAR [facility]
--- OUTSIDE RECORDS SUMMARY | 2024-05-24 19:17 | XMS_ITS ---
[place] MED NUTRITION [place] SUBSEQ [facility] Encounter Summary Created on: May 24, 2024 GALINA LOYD : 1945 Sex: Male Author Name [facility] [place] [facility] [place] [facility] [place] Address [address] [place] [address] Care Team Providers Care Inspector Firearms Name Role Phone KYRA VELASQUEZ Primary Care [...] Patient's Relationship to Policy Ervin [facility] (WNR) MEDICARE [facility](W NR) * Aug 23, 2023 [id number] [phone] ANNALISA LOYD ITE PATIENT [facility] (WNR) MEDICARE ADVANTAGE [facility] (WNR) Aug 23, 2020 [id number] [phone] ANNALISA LOYD ITE PATIENT [facility] (WNR) MEDICARE [facility](W NR) Aug 23, 2012 [id number] [phone] ANNALISA LOYD ITE PATIENT Selected Encounter This section includes the information on record at [place] for the Encounter. Date/Time Encounter Type Encounter Description Reason Provider Source Jul 12, 2023 01:00 PM MED NUTRITION INDIV SUBSEQ NUTRITION/DIETETIC S-INDIVIDUAL ICD-10-CM Z68.1 Body mass index [BMI] 19.9 or less, adult PURNIMA GANDHI [facility] Encounter Template Text not used by [facility] Assessments - Encounter Diagnoses This section includes the primary and secondary diagnoses documented for the Encounter. Date/Time Primary/Secondary Diagnosis Diagnosis Name Provider Source Jul 12, 2023 04:13 PM PRIMARY Body mass index [BMI] 19.9 or less, adult PURNIMA GANDHI [facility] Jul 12, 2023 04:13 PM SECONDARY Dietary counseling and surveillance PURNIMA GANDHI [facility] Plan of Treatment: Future Appointments (+ 6 months) and Future Tests (+/- 45 days) The Plan of Treatment section includes future care activities for the patient from all [place] treatmentfacilities. This section includes future appointments and future orders which are active, pending or scheduled. Future Appointments This section includes appointments that were scheduled to occur 6 months from the date of the Encounter, up to a maximum of 20 appointments. The data comes from all [place] treatment facilities. Appointment Date/Time Appointment Type Appointme nt Facility Name Sep 15, 2023 01:00 PM AMBULATORY - SURGERY [facility] Oct 18, 2023 08:00 AM AMBULATORY - NONE [facility] Nov 04, 2023 09:00 AM AMBULATORY - SURGERY [facility] Nov 04, 2023 09:30 AM AMBULATORY - SURGERY [facility] Nov 29, 2023 11:30 AM AMBULATORY - NONE [facility] Dec 10, 2023 02:00 PM AMBULATORY - SURGERY [facility] Dec 13, 2023 02:30 PM AMBULATORY - MEDICINE [facility] Dec 13, 2023 02:31 PM AMBULATORY - NONE [facility] Dec 16, 2023 08:00 AM AMBULATORY - SURGERY [facility] Dec 21, 2023 01:30 PM AMBULATORY - SURGERY [facility] Lab Results: +/- 30 days [...] Range Comment Jun 16, 2023 01:20 PM [facility] PSA (FLASK PUSHER) Specimen Type: SERUM Comment: Tests performed on [employer] Monitor (405) [id number] Ordering Provider: THERON HEIN Report Released Date/Time: Dec 09, 2022 08:40 AM Reporting Lab: [facility] [address] [id number] Performing Lab: [facility] [address] [id number] PSA (FLASK PUSHER) 0.13 ng/mL 0-4.0 Social History: Smoking Status (Most current) and Tobacco Use (All prior to encounter date) This section includes the most current, and the historical, smoking and tobacco- related health factors from the [place] facility where the Encounter took place. Current Smoking Status This section includes the most current smoking, or tobacco-related health factor, from the [place] facility where the Encounter took place. Date/Time Current Smoking Status Comment Facil ity Jul 17, 2021 02:27 PM CURRENT SMOKER REINIER Bhatia [facility] Tobacco Use History This section includes a history of the smoking, or tobacco-related health factors, that were collected on or before the date of the Encounter. The data comes from the [place] facility where the Encounter took place. Date/Time Smoking Status/Tobacco Use Comment F acility Jul 01, 2021 08:55 PM VA-[facility] TOBACCO U SE CURRENT NRT DECLINE [facility] Jul 01, 2021 02:41 PM CURRENT SMOKER REINIER Bhatia [facility] Dec 08, 2020 08:45 PM VA-TOBACCO [...] ALL of a patient's completed or amended [place] Advance and Rescinded Directives. The entries below indicate that a directive exists for the patient, but an actual copy is not included with this document. The data comes from all [place] facilities. Date Advance Directives Provider Source Nov 18, 2017 ADVANCE DIRECTIVE REBECCARADHA [facility] Jul 08, 2017 ADVANCE DIRECTIVE DISCUSSION PURNIMA ROJAS [facility] Radiology Reports: +/- 30 days of [...] the Encounter. The data comes from all [place] treatment facilities. Date/Time Radiology Report Provider Source Aug 04, 2023 12:45 PM UNLISTED COPIES FO R OUTSIDE REFERRAL: EVERTGALINA CARISA [id number] -1945 M Exm Date: AUG 04, 2023@12:45 Req Phys: TODD SANTAMARIA Pat Loc: [facility] RAD MISC XRAY [facility] (Req'g Img Loc: XRAY (OOS) Service: Unknown (Case [id number] COMPLETE) UNLISTED COPIES FOR OUTSIDE REFER(RAD Detailed) CPT:99898 Reason for Study: UNLISTED COPIES FOR OUTSIDE REFERRAL Clinical History: UNLISTED COPIES FOR OUTSIDE REFERRAL. REQUESTED BY SAAD JOHNSON [id number], [id number], [id number]. PICKED UP BY SAAD 08/04/23 Report Status: Electronically Filed Date Reported: Report: Copies (CD) made for outside facility. Impression: Copies (CD) made for outside facility Primary Diagnostic Code: VERIFIED BY: / *ELECTRONICALLY FILED* SONYA GAYLE [facility] Encounter Notes: All associated encounter notes This section contains the clinical notes associated to the Encounter. Date/Time Encounter Note(s) Provider Source Aug 24, 2023 05:40 PM ADDENDUM: LOCAL TITLE: Addendum STANDARD TITLE: ADDENDUM DATE OF NOTE: AUG 24, 2023@17:40:15 ENTRY DATE: AUG 24, 2023@17:40:16 AUTHOR: PURNIMA GANDHI EXP COSIGNER: URGENCY: STATUS: COMPLETED RD will not be available on 10/04 for TH appointments. LEAF has been placed to close TH slots. When able, please reschedule pt for a different date and time. Thank you. /vivian/ PURNIMA GANDHI RD,CD CLINICAL DIETITIAN Signed: 08/24/2023 17:40 Receipt Acknowledged By: 08/27/2023 11:12 /vivian/ ADITI GARCIA Health Warehouse Consultant --- Original Document --- 07/12/23 Nutrition Follow-Up Note: TELEHEALTH NUTRITION COUNSELING Reason for initial nutrition consult: unintentional weight loss Last nutrition visit: 03/29/23 Time spent today: 30 minutes Dx: z68.1 Body mass index [BMI] 19.9 or less, adult; Z71.3 Dietary counseling and surveillance Assessment: Nutrition Goals from last visit: Food/nutrition related history outcomes 1. Pt willing to aim to drink one glass whole milk with Frostproof Instant breakfast per day --> goal met, ongoing 2. Pt will consume > 75% of meals --> progress made towards goal, ongoing Anthropometric Measurement Outcomes 1. Prevent further weight loss and/or gradual weight gain --> goal met, ongoing Nutrition-Focused Physical Finding Outcomes 1. Prevent further fat/muscle loss --> goal likely met as pt weight has gained a little weight Update since last visit: Spoke with pt today for nutrition follow up. - pt accompanied by his today - weight up to 125 lbs today (120 lb on home scale per ) - pt feels his appetite is improving marginally, but intake is about the same - continues drinking Frostproof Breakfast Essentials with whole milk and half and half or heavy cream (pt does not prefer Ensure supplements) - reports eating 2 meals per day with occasional snacks - - states if he eats lunch, he is often not hungry for dinner Recent Pertinent labs: HGB A1C: 5.6 (12/08/22 12:01) GLU: 100 (02/11/23 14:30) CHOL: 122 (12/08/22 12:01) HDL: 54 (12/08/22 12:01) LDL: 56 (12/08/22 12:01) TRI (12/08/22 12:01) ALB: 3.6 (12/08/22 12:01) Today's weight: 125 lb in office on 07/12/23 (states 120 lb on home scale) Weight last visit: 112 lb [50.80 kg] (04/29/2023 07:39) 119.9 lb - in office on 03/29/23 Change in weight: up 5 lbs according to office scale NUTRITION-FOCUSED PHYSICAL EXAM/ASSESSMENT Note: difficult to accurately assess via TH; pt wearing loose fitting clothing today and only able to see shoulders and above on video visit Physical Assessment: Subcutaneous Fat Mass (orbital fat pads, triceps, chest) [X] Evidence of mildly/moderately altered body composition Describe: orbital fat pads Physical Assessment: Lean Muscle Mass (voodoo, clavicle, shoulder, scapula, interosseous muscle, quadriceps, calf muscle) [X] Evidence of mildly/moderately altered body composition Describe: voodoo Fluid Status: [X] Unable to observe Food Recall: B: blueberry muffin with butter and carnation breakfast essentials made with lactose free whole milk and half and half (other options: oatmeal or bran cereal) L: tends to skip D: larger portions at supper: 1/2 ground beef pie: carrots, onion, potato( other options: grilled cheese and ham; blueberry muffin; poached egg with ham; omelet and toast; scallops with Norwegian fries) Snacks: occasional dessert if available Beverages: water STAGE OF CHANGE: []Pre-contemplation - no intention to change behavior at the present time []Contemplation - considering a change in behavior []Preparation - preparatory actions following the decision to change a behavior [X]Action - currently engaged in behavior change activities []Maintenance - the continuation of a changed behavior beyond the first six months Dx: Nutrition Diagnosis: unintentional weight loss (ACTIVE) Related to: poor appetite/PO intake As evidenced by: 12.3 lb (10%) weight loss in one month; pt reported consuming ~ 50% of normal intake Etiology: physiological/metabolic Intervention/Plan: Nutrition Prescription 1. Diet rx: Healthy Diet - encourage aiming for 2-3 meals per day with occasional snacks - encourage increasing to two glasses of whole milk with Frostproof Breakfast Essentials per day Nutrition Counseling 1. Reviewed weight trends and diet recall. Pt weight up ~5 lbs in the past 2-3 months. Pt continues to eat 2 meals per day with occasional snacks. Pt drinking one glass whole milk with Frostproof Breakfast Essential powder mix. Pt mentions he typically skips lunch. Together, brainstormed ideas for increasing kcals. Pt willing to trial drinking additional glass of whole milk per day. Monitoring/Evaluation: Food/nutrition related history outcomes 1. Pt willing to aim to increase to drinking two glasses of whole milk with Frostproof Breakfast Essentials per day 2. Pt will aim to consume > 75% of meals Anthropometric Measurement Outcomes 1. Prevent further weight loss and/or gradual weight gain Nutrition-Focused Physical Finding Outcomes 1. Prevent further fat/muscle loss Recommended follow up: 3 months via // PURNIMA GANDHI RD,CD CLINICAL DIETITIAN Signed: 07/12/2023 16:13 08/27/2023 ADDENDUM STATUS: UNSIGNED You may not VIEW this UNSIGNED Addendum. PURNIMA GANDHI [facility] Jul 12, 2023 07:37 AM NUTRITION DIETETIC S NOTE: LOCAL TITLE: Nutrition Follow-Up Note STANDARD TITLE: NUTRITION DIETETICS NOTE DATE OF NOTE: JUL 12, 2023@07:37 ENTRY DATE: JUL 12, 2023@07:37:59 AUTHOR: PURNIMA GANDHI EXP COSIGNER: URGENCY: STATUS: COMPLETED Nutrition Follow-Up Note Has ADDENDA TELEHEALTH NUTRITION COUNSELING Reason for initial nutrition consult: unintentional weight loss Last nutrition visit: 03/29/23 Time spent today: 30 minutes Dx: z68.1 Body mass index [BMI] 19.9 or less, adult; Z71.3 Dietary counseling and surveillance Assessment: Nutrition Goals from last visit: Food/nutrition related history outcomes 1. Pt willing to aim to drink one glass whole milk with Frostproof Instant breakfast per day --> goal met, ongoing 2. Pt will consume > 75% of meals --> progress made towards goal, ongoing Anthropometric Measurement Outcomes 1. Prevent further weight loss and/or gradual weight gain --> goal met, ongoing Nutrition-Focused Physical Finding Outcomes 1. Prevent further fat/muscle loss --> goal likely met as pt weight has gained a little weight Update since last visit: Spoke with pt today for nutrition follow up. - pt accompanied by his today - weight up to 125 lbs today (120 lb on home scale per ) - pt feels his appetite is improving marginally, but intake is about the same - continues drinking Frostproof Breakfast Essentials with whole milk and half and half or heavy cream (pt does not prefer Ensure supplements) - reports eating 2 meals per day with occasional snacks - - states if he eats lunch, he is often not hungry for dinner Recent Pertinent labs: HGB A1C: 5.6 (12/08/22 12:01) GLU: 100 (02/11/23 14:30) CHOL: 122 (12/08/22 12:01) HDL: 54 (12/08/22 12:01) LDL: 56 (12/08/22 12:01) TRI (12/08/22 12:01) ALB: 3.6 (12/08/22 12:01) Today's weight: 125 lb in office on 07/12/23 (states 120 lb on home scale) Weight last visit: 112 lb [50.80 kg] (04/29/2023 07:39) 119.9 lb - in office on 03/29/23 Change in weight: up 5 lbs according to office scale NUTRITION-FOCUSED PHYSICAL EXAM/ASSESSMENT Note: difficult to accurately assess via TH; pt wearing loose fitting clothing today and only able to see shoulders and above on video visit Physical Assessment: Subcutaneous Fat Mass (orbital fat pads, triceps, chest) [X] Evidence of mildly/moderately altered body composition Describe: orbital fat pads Physical Assessment: Lean Muscle Mass (voodoo, clavicle, shoulder, scapula, interosseous muscle, quadriceps, calf muscle) [X] Evidence of mildly/moderately altered body composition Describe: voodoo Fluid Status: [X] Unable to observe Food Recall: B: blueberry muffin with butter and carnation breakfast essentials made with lactose free whole milk and half and half (other options: oatmeal or bran cereal) L: tends to skip D: larger portions at supper: 1/2 ground beef pie: carrots, onion, potato( other options: grilled cheese and ham; blueberry muffin; poached egg with ham; omelet and toast; scallops with Norwegian fries) Snacks: occasional dessert if available Beverages: water STAGE OF CHANGE: []Pre-contemplation - no intention to change behavior at the present time []Contemplation - considering a change in behavior []Preparation - preparatory actions following the decision to change a behavior [X]Action - currently engaged in behavior change activities []Maintenance - the continuation of a changed behavior beyond the first six months Dx: Nutrition Diagnosis: unintentional weight loss (ACTIVE) Related to: poor appetite/PO intake As evidenced by: 12.3 lb (10%) weight loss in one month; pt reported consuming ~ 50% of normal intake Etiology: physiological/metabolic Intervention/Plan: Nutrition Prescription 1. Diet rx: Healthy Diet - encourage aiming for 2-3 meals per day with occasional snacks - encourage increasing to two glasses of whole milk with Frostproof Breakfast Essentials per day Nutrition Counseling 1. Reviewed weight trends and diet recall. Pt weight up ~5 lbs in the past 2-3 months. Pt continues to eat 2 meals per day with occasional snacks. Pt drinking one glass whole milk with Frostproof Breakfast Essential powder mix. Pt mentions he typically skips lunch. Together, brainstormed ideas for increasing kcals. Pt willing to trial drinking additional glass of whole milk per day. Monitoring/Evaluation: Food/nutrition related history outcomes 1. Pt willing to aim to increase to drinking two glasses of whole milk with Frostproof Breakfast Essentials per day 2. Pt will aim to consume > 75% of meals Anthropometric Measurement Outcomes 1. Prevent further weight loss and/or gradual weight gain Nutrition-Focused Physical Finding Outcomes 1. Prevent further fat/muscle loss Recommended follow up: 3 months via FERNANDO /vivian/ PURNIMA GANDHI RD,CD CLINICAL DIETITIAN Signed: 07/12/2023 16:13 08/24/2023 ADDENDUM STATUS: COMPLETED RD will not be available on 10/04 for TH appointments. LEAF has been placed to close TH slots. When able, please reschedule pt for a different date and time. Thank you. /vivian/ PURNIMA GANDHI RD,CD CLINICAL DIETITIAN Signed: 08/24/2023 17:40 Receipt Acknowledged By: 08/27/2023 11:12 /vivian/ ADITI GARCIA Health Warehouse Consultant 08/27/2023 ADDENDUM STATUS: COMPLETED TW called and spoke with spouse re: r/s Nutrition appt. Negotiated date and time with spouse. 10/25/2023 @ 1:00pm. /vivian/ ADITI GARCIA Health Warehouse Consultant Signed: 08/27/2023 11:14 PURNIMA GANDHI [facility]
--- OUTSIDE RECORDS SUMMARY | 2024-05-24 19:17 | XMS_ITS | Encounter Summary ---
Author Name [facility] [place] Organization [place] Address [address] [place] [address] Care Team Providers Care Cable Operator Name Role Phone KYRA VELASQUEZ Primary [...] Patient's Relationship to Policy Ervin [facility] (WNR) MEDICARE ADVANTAGE [facility](W NR) * Aug 23, 2023 [id number] [phone] ANNALISA EDUARDO ITE PATIENT [facility] (WNR) MEDICARE ADVANTAGE [facility] (WNR) Aug 23, 2020 [id number] [phone] ANNALISA EDUARDO ITE PATIENT [facility] (WNR) MEDICARE ADVANTAGE [facility](W NR) Aug 23, 2012 [id number] ANNALISA EDUARDO ITE PATIENT Selected Encounter This section includes the information on record at [place] for the Encounter. Date/Time Encounter Type Encounter Description Reason Pro vider Source Jun 22, 2023 10:30 AM Outpatient Encounter PRIMARY CARE/MEDICINE IHE Encounter Template Text not used by VA Plan of Treatment: Future Appointments (+ 6 months) and Future Tests (+/- 45 days) The Plan of Treatment section includes future care activities for the patient from all [facility] This section includes future appointments and future orders which are active, pending or scheduled. Future Appointments This section includes appointments that were scheduled to occur 6 months from the date of the Encounter, up to a maximum of 20 appointments. The data comes from all [place] treatment facilities. Appointment Date/Time Appointment Type Appointme nt Facility Name Jul 12, 2023 01:00 PM AM[place]ULATORY - [place]ONE [place] [facility] Jul 12, 2023 01:01 PM AMBULATORY - MEDICINE [facility] Sep 15, 2023 01:00 PM [place]BUL[place]ORY [place] [facility] Oct 18, 2023 08:00 AM AMBULATORY - NONE [place] [facility] Nov 04, 2023 09:00 AM AMBUL[place]ORY [place] [facility] Nov 04, 2023 09:30 AM [place]BUL[place]ORY [place] [facility] Nov 29, 2023 11:30 AM AMBULATORY - NONE [facility] Dec 10, 2023 02:00 PM [place]UL[place]ORY [place] [facility] Dec 13, 2023 02:30 PM AMBULATORY - MEDICINE [facility] Dec 13, 2023 02:31 PM AMBULATORY - NONE [place] [facility] Dec 16, 2023 08:00 AM AMBUL[place]ORY [place] [facility] Dec 21, 2023 01:30 PM [place] [facility] Lab Results: +/- 30 days of the encounter This section includes the Chemistry and Hematology Lab Results on record with [place] for the patient. Radiology Reports and Pathology Reports are provided separately, in subsequent sections. Lab Results This section contains the Chemistry/Hematology Results that were resulted 30 days before or 30 daysafter the date of the Encounter. Date/Time Source Result Type Result - Unit Interpretation Reference Range Comment Jun 16, 2023 01:20 PM [place] [facility] PSA (MILEAGE CLERK) Specimen Type: SERUM Comment: Tests performed on [employer] Research Biologist (405) [id number] Ordering Provider: THERON HEIN Report Released Date/Time: Dec 09, 2022 08:40 AM Reporting Lab: [place] [facility] [address] [facility] [facility] [address] Performing Lab: [facility] [address] [facility] [address] PSA (MILEAGE CLERK) 0.13 ng/mL 0-4.0 Social History: Smoking Status (Most current) and Tobacco Use (All prior to encounter date) This section includes the most current, and the historical, smoking and tobacco- related health factors from the [place] facility where the Encounter took place. Current Smoking Status This section includes the most current smoking, or tobacco-related health factor, from the [place] facility where the Encounter took place. Date/Time Current Smoking Status Comment Facil ity Jul 17, 2021 02:27 PM CURRENT SMOKER REINIER GAYLE [facility] Tobacco Use History This section includes a history of the smoking, or tobacco-related health factors, that were collected on or before the date of the Encounter. The data comes from the [place] facility where the Encounter took place. Date/Time Smoking Status/Tobacco Use Comment F acility Jul 01, 2021 08:55 PM VA-VAAES TOBACCO U SE CURRENT NRT DECLINE [facility] Jul 01, 2021 02:41 PM CURRENT SMOKER REINIER Bhatia [facility] Dec 08, 2020 08:45 PM VA-TOBACCO USER EVERY DAY [facility] Dec 08, 2020 08:45 PM VA-VAAES TOBACCO U SE CURRENT NRT DECLINE [facility] Dec 08, 2020 06:58 PM VA-TOBACCO FORMER USER [facility] Apr 04, 2015 03:47 PM CURRENT SMOKER Less than a pack a day [facility] Apr 04, 2015 03:47 PM V1-PT NOT INTEREST ED IN QUIT TOBACCO USE [facility] Advance Directives: All historical and current Section Date Range: From patient's date of to the date document was created. This section includes ALL of a patient's completed or amended [place] Advance and Rescinded Directives. The entries below indicate that a directive exists for the patient, but an actual copy is not included with this document. The data comes from all [place] facilities. Date Advance Directives Provider Source Nov 18, 2017 ADVANCE DIRECTIVE RADHA FERNANDEZ [facility] Jul 08, 2017 ADVANCE DIRECTIVE DISCUSSION PURNIMA ROJAS [facility] Encounter Notes: All associated encounter notes This section contains the clinical notes associated to the Encounter. Date/Time Encounter Note(s) Provider Source Jun 17, 2023 10:30 AM NONVA NOTE: LOCAL TITLE: NonVA Note STANDARD TITLE: NONVA NOTE DATE OF NOTE: JUN 17, 2023@10:30 ENTRY DATE: JUN 22, 2023@10:31:11 AUTHOR: JENIFER SHANE COSIGNER: URGENCY: STATUS: COMPLETED EVENT PROCEDURE: Oncology Note TREATING FACILITY: [facility] FOLLOW-UP: Patient: Galina Eduardo : 1945 PCP: [facility] Urologist: Adan Navarrete Jr., MD ([facility]; last seen 05/24/23), also sees Urology at [facility] Radiation Oncologist: Que Evans MD Chief Complaint: Follow-up for 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 He initially presented with an elevated PSA (12.9 on 11/03/19). ERIKA did not reveal any nodules, per patient. TRUS biopsy on 11/23/19 showed [place] 4+3 x 1 on the left, Allie 3+4 x 3 bilaterally, and Allie 3+3 x 2 bilaterally. On 12/01/19, patient saw Dr. Thomas at the [facility], who discussed various treatment options. Patient was most interested in learning more about radiation therapy. He completed RT on 04/26/20, but declined ADT. He is currently on surveillance. 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 Last seizure about 3 months ago. He has residual memory problems, so he is accompanied by his today, who helps provide a history. He follows with Neurology at [facility] (Dr. Wendie Garcia). He also has a history of follicular lymphoma, managed by Dr. Kennedy at [facility]. He 'last received treatment through the \/A in 2015, and is currently on surveillance with annual labs. Assessment & Plan: #Prostate cancer: - Labs reviewed from 05/19/23: PSA 0.17, remains low/stable. - No acute/concerning reported symptoms or physical exam findings. - Per NCCN guidelines, PSA and H&P due every 6 months x 5 years sip RT completion, then annually (PSA may be checked more frequently depending on risk level or other patient-specific factors). ERIKA if suspicious for recurrence. - Next PSA and H&P due 6 months from last labs (10/2023). #Effects of EBRT: - Completed definitive RT to pelvis, SV, prostate (see Treatment Details section above) on 04/26/20. - Acute and late effects of radiation were reviewed with the patient, who currently denies new issues with the below lists. - Patient is aware that if he develops any of the late effects of radiation listed below (difficulty or changes in urine flow, blood in urine or stool) in between his regularly scheduled appointments with our office, then he should seek medical evaluation. Acute: 1.LUTS (lower urinary tract symptoms) 2.Bowel dysfunction 3.Sexual health/Erectile Dysfunction 4.Fatigue 5.Mood changes Late: 1.Changes in urinary flow/difficulty passing urine (scarring from radiation) 2.Blood in urine: may be infection, inflammation of bladder wall (cystitis), formation of telangiectasia (small, thin blood vessels that are dilated or broken near the surface of the bladder and may bleed), or bladder/genitourinary cancer 3.Blood in stool: may be from hemorrhoids, telangiectasia from radiation, or colorectal cancer #Survivorship: - Weight loss: continue to follow with PCP and Nutrition. - Exercise: recommend at least 150 minutes of cardiovascular exercise per week, stretching twice per week, and 2 days of resistance/strength training per week. - Bone health: continue Vitamin D supplement. - Smoking: not interested in quitting at this time. - Alcohol: none currently. - Follow with PCP on regular basis for: annual exam/health maintenance, immunizations, and cancer screenings (colonoscopy, lung cancer screening if appliable, etc). - Lymphoma: continue to follow with Medical Oncology. - Kidney stones, h/o UTIs: continue to follow with Urology. - Epilepsy, h/o CVA, aneurysm: continue to follow with Neurology. Follow-Up: Next visit: 6 months from 04/2023 labs (10/2023) Labs ([facility]): PSA Galina Eduardo had the opportunity to ask questions, which were answered to the best of my knowledge. Galina Eduardo agreed to contact Radiation Oncology in between visits if he has any questions/concerns or new symptoms in regards to his radiation therapy/prostate cancer. THE ATTACHED SCANNED DOCUMENT HAS BEEN REVIEWED AND AUTHORIZED BY DOCUMENT (S) SENT TO [employer] TO BE SCANNED. TO VIEW THIS DOCUMENT, OPEN CPRS TOOLS MENU AND THEN OPEN THE IMAGE DISPLAY VIEWER. /vivian/ JENIFER SHANE LPN Signed: 06/22/2023 10:34 JENIFER SHANE [facility]
--- OUTSIDE RECORDS SUMMARY | 2024-05-24 19:18 | XMS_ITS ---
Author Name [facility] [place] Address [address] [place] [address] Care Team Providers Care Cane Pusher Name Role Phone KYRA VELASQUEZ Primary Care [...] Patient's Relationship to Policy Ervin [facility] (WNR) MEDICARE ADVANTAGE [facility](W NR) * Aug 23, 2023 [id number] [phone] ANNALISA LOYD ITE PATIENT [facility] (WNR) MEDICARE ADVANTAGE [facility] (WNR) Aug 23, 2020 [id number] [phone] ANNALISA LOYD ITE PATIENT [facility] (WNR) MEDICARE ADVANTAGE [facility](W NR) Aug 23, 2012 [id number] ANNALISA LOYD ITE PATIENT Selected Encounter This section includes the information on record at [place] for the Encounter. Date/Time Encounter Type Encounter Description Reason Pro vider Source Jul 13, 2023 11:39 AM Outpatient Encounter ADMIN PAT ACTIVTIES (MASNONCT) IHE Encounter Template Text not used by VA Plan of Treatment: Future Appointments (+ 6 months) and Future Tests (+/- 45 days) The Plan of Treatment section includes future care activities for the patient from all [place] treatmentfacilities. This section includes future appointments and future orders which are active, pending or scheduled. Future Appointments This section includes appointments that were scheduled to occur 6 months from the date of the Encounter, up to a maximum of 20 appointments. The data comes from all [place] treatment facilities. Appointment Date/Time Appointment Type Appointme nt Facility Name Sep 15, 2023 01:00 PM AMBULATORY - SURGERY [facility] Oct 18, 2023 08:00 AM AMBULATORY - NONE [place] [facility] Nov 04, 2023 09:00 AM AMBULATORY - SURGERY [facility] Nov 04, 2023 09:30 AM AMBULATORY - SURGERY [facility] Nov 29, 2023 11:30 AM AMBULATORY - NONE [facility] Dec 10, 2023 02:00 PM AMBULATORY - SURGERY [facility] Dec 13, 2023 02:30 PM AMBULATORY - MEDICINE [facility] Dec 13, 2023 02:31 PM AMBULATORY - NONE [place] [facility] Dec 16, 2023 08:00 AM AMBULATORY - SURGERY [facility] Dec 21, 2023 01:30 PM AMBULATORY - SURGERY [facility] Lab Results: +/- 30 days of the encounter This section includes the Chemistry and Hematology Lab Results on record with [place] for the patient. Radiology Reports and Pathology Reports are provided separately, in subsequent sections. Lab Results This section contains the Chemistry/Hematology Results that were resulted 30 days before or 30 daysafter the date of the Encounter. Date/Time Source Result Type Result - Unit Interpretation Reference Range Comment Jun 16, 2023 01:20 PM [facility] PSA (GEOPHYSICS SCIENTIST) Specimen Type: SERUM Comment: Tests performed on [employer] (405) [id number] Ordering Provider: THERON HEIN Report Released Date/Time: Dec 09, 2022 08:40 AM Reporting Lab: [facility] [address] [facility] [address] Performing Lab: [facility] [address] [facility] [address] PSA (GEOPHYSICS SCIENTIST) 0.13 ng/mL 0-4.0 Social History: Smoking Status (Most current) and Tobacco Use (All prior to encounter date) This section includes the most current, and the historical, smoking and tobacco- related health factors from the [place] facility where the Encounter took place. Current Smoking Status This section includes the most current smoking, or tobacco-related health factor, from the [place] facility where the Encounter took place. Date/Time Current Smoking Status Comment Facil ity Jul 17, 2021 02:27 PM CURRENT SMOKER REINIER Bhatia [facility] Tobacco Use History This section includes a history of the smoking, or tobacco-related health factors, that were collected on or before the date of the Encounter. The data comes from the [place] facility where the Encounter took place. Date/Time Smoking Status/Tobacco Use Comment F acility Jul 01, 2021 08:55 PM VA-VAAES TOBACCO U SE CURRENT NRT DECLINE [facility] Jul 01, 2021 02:41 PM CURRENT SMOKER REINIER Bhatia [facility] Dec 08, 2020 08:45 PM VA-TOBACCO USER EVERY DAY [facility] Dec 08, 2020 08:45 PM VA-VAAES TOBACCO U SE CURRENT NRT DECLINE [facility] Dec 08, 2020 06:58 PM VA-TOBACCO FORMER USER [facility] Apr 04, 2015 03:47 PM CURRENT SMOKER Less than a pack a day [facility] Apr 04, 2015 03:47 PM V1-PT NOT INTEREST ED IN QUIT TOBACCO USE [facility] Advance Directives: All historical and current Section Date Range: From patient's date of to the date document was created. This section includes ALL of a patient's completed or amended [place] Advance and Rescinded Directives. The entries below indicate that a directive exists for the patient, but an actual copy is not included with this document. The data comes from all [place] facilities. Date Advance Directives Provider Source Nov 18, 2017 ADVANCE DIRECTIVE RADHA FERNANDEZ [facility] Jul 08, 2017 ADVANCE DIRECTIVE DISCUSSION [...] the Encounter. The data comes from all [place] treatment facilities. Date/Time Radiology Report Provider Source Aug 04, 2023 12:45 PM UNLISTED COPIES FO R OUTSIDE REFERRAL: GALINA LOYD [id number] -1945 M Exm Date: AUG 04, 2023@12:45 Req Phys: TODD SANTAMARIA Pat Loc: [facility] RAD MISC XRAY [facility] (Req'g Img Loc: XRAY ([facility]) Service: Unknown (Case [id number] COMPLETE) UNLISTED COPIES FOR OUTSIDE REFER(RAD Detailed) CPT:40786 Reason for Study: UNLISTED COPIES FOR OUTSIDE REFERRAL Clinical History: UNLISTED COPIES FOR OUTSIDE REFERRAL. REQUESTED BY SAAD JOHNSON [id number], [id number], [id number]. PICKED UP BY SAAD 08/04/23 Report Status: Electronically Filed Date Reported: Report: Copies (CD) made for outside facility. Impression: Copies (CD) made for outside facility Primary Diagnostic Code: VERIFIED BY: / *ELECTRONICALLY FILED* SONYA GAYLE [facility] Encounter Notes: All associated encounter notes This section contains the clinical notes associated to the Encounter. Date/Time Encounter Note(s) Provider Source Jul 13, 2023 11:39 AM ADMINISTRATIVE NOT E: LOCAL TITLE: Has Admin Note STANDARD TITLE: ADMINISTRATIVE NOTE DATE OF NOTE: JUL 13, 2023@11:39 ENTRY DATE: JUL 13, 2023@11:39:57 AUTHOR: HUGH QUILES EXP COSIGNER: URGENCY: STATUS: COMPLETED Has Admin Note Has ADDENDA Pt's (Cachor[place]e) called stating pt had stent placed 04/29/23 and wants to know how long it is ok to stay in before needs to be removed? states pt is having Kidney stones removed 08/05 at [facility]. Requests call to discuss/advise /vivian/ HUGH QUILES CLINICAL MEDICAL ASSISTANT Signed: 07/13/2023 11:49 Receipt Acknowledged By: 07/14/2023 07:43 /es/ SAAD JOHNSON MD, MS UROLOGY PGY-4 for BRITTNEY SOTO 07/13/2023 13:18 /es/ Pb OSORIO MD Staff Surgeon, Urology 07/14/2023 07:42 /es/ SAAD JOHNSON MD, MS UROLOGY PGY-4 07/13/2023 ADDENDUM STATUS: COMPLETED I called the patient and confirmed that he does not need another stent change prior to his stone surgery on 08/05. At the time of his last procedure in Apr 2023, his ureteral stents were only minimally encrusted after 2 months. /vivian/ Pb OSORIO MD Staff Surgeon, Urology Signed: 07/13/2023 13:21 HUGH QUILES [facility]
--- OUTSIDE RECORDS SUMMARY | 2024-05-24 19:18 | XMS_ITS ---
Author Name [facility] [place] Organization [place] Address [address] [place] [address] Care Team Providers Care Driver Utility Worker Name Role Phone KYRA VELASQUEZ Primary Care [...] Patient's Relationship to Policy Ervin [facility] (WNR) MEDICARE ADVANTAGE MCR(W NR) * Aug 23, 2023 [id number] ANNALISA LOYD ITE PATIENT [facility] (WNR) MEDICARE ADVANTAGE [facility] (WNR) Aug 23, 2020 [id number] [phone] ANNALISA LOYD ITE PATIENT [facility] (WNR) MEDICARE [facility](W NR) Aug 23, 2012 [id number] ANNALISA LOYD ITE PATIENT Selected Encounter This section includes the information on record at [place] for the Encounter. Date/Time Encounter Type Encounter Description Reason Pro vider Source Aug 24, 2023 08:22 AM Outpatient Encounter ADMIN PAT ACTIVTIES (MASNONCT) IHE Encounter Template Text not used by [place] Plan of Treatment: Future Appointments (+ 6 months) and Future Tests (+/- 45 days) The Plan of Treatment section includes future care activities for the patient from all [place] treatmentfacilities. This section includes future appointments and future orders which are active, pending or scheduled. Future Appointments This section includes appointments that were scheduled to occur 6 months from the date of the Encounter, up to a maximum of 20 appointments. The data comes from all [place] treatment facilities. Appointment Date/Time Appointment Type Appointme nt Facility Name Sep 15, 2023 01:00 PM AMBULATORY [place] [facility] Oct 18, 2023 08:00 AM AM[place]ULATORY - NONE [place] [facility] Nov 04, 2023 09:00 AM AMB[facility]ORY [place] [facility] Nov 04, 2023 09:30 AM AMBULATORY - [place] [facility] Nov 29, 2023 11:30 AM AMBULATORY - NONE [facility] Dec 10, 2023 02:00 PM AMBULATORY - [place] [facility] Dec 13, 2023 02:30 PM AMBULATORY - MEDICINE [facility] Dec 13, 2023 02:31 PM AMBULATORY - NONE [place] [facility] Dec 16, 2023 08:00 AM AMBULATORY [place] [facility] Dec 21, 2023 01:30 PM AMBULATORY - [place] [facility] Feb 21, 2024 10:15 AM AMBULATORY - NONE [place] [facility] Feb 21, 2024 11:00 AM AM[place]ATORY - NONE [place] [facility] Social History: Smoking Status (Most current) and Tobacco Use (All prior to encounter date) This section includes the most current, and the historical, smoking and tobacco- related health factors from the [place] facility where the Encounter took place. Current Smoking Status This section includes the most current smoking, or tobacco-related health factor, from the [place] facility where the Encounter took place. Date/Time Current Smoking Status Melissa schaeffer Jul 17, 2021 02:27 PM CURRENT SMOKER [place] [facility] Tobacco Use History This section includes a history of the smoking, or tobacco-related health factors, that were collected on or before the date of the Encounter. The data comes from the [place] facility where the Encounter took place. Date/Time Smoking Status/Tobacco Use Comment F acility Jul 01, 2021 08:55 PM VA-VAAES TOBACCO U SE CURRENT NRT DECLINE [facility] Jul 01, 2021 02:41 PM CURRENT SMOKER WHIT Jannette [facility] Dec 08, 2020 08:45 PM VA-TOBACCO USER EVERY DAY [facility] Dec 08, 2020 08:45 PM VA-VAAES TOBACCO U SE CURRENT NRT DECLINE [facility] Dec 08, 2020 06:58 PM VA-TOBACCO FORMER USER [facility] Apr 04, 2015 03:47 PM CURRENT SMOKER Less than a pack a day [facility] Apr 04, 2015 03:47 PM V1-PT NOT INTEREST ED IN QUIT TOBACCO USE [facility] Advance Directives: All historical and current Section Date Range: From patient's date of to the date document was created. This section includes ALL of a patient's completed or amended [place] Advance and Rescinded Directives. The entries below indicate that a directive exists for the patient, but an actual copy is not included with this document. The data comes from all [place] facilities. Date Advance Directives Provider Source Nov 18, 2017 ADVANCE DIRECTIVE RADHA FERNANDEZ [facility] Jul 08, 2017 ADVANCE DIRECTIVE DISCUSSION PURNIMA ROJAS [facility] Radiology Reports: +/- 30 days of [...] the Encounter. The data comes from all [place] treatment facilities. Date/Time Radiology Report Provider Source Sep 10, 2023 03:25 PM UNLISTED COPIES FO R OUTSIDE REFERRAL: GALINA LOYD [id number] -1945 M Exm Date: SEP 10, 2023@15:25 Req Phys: TODD SANTAMARIA Pat Loc: [facility] RAD MISC XRAY B1RC (Req'g Img Loc: XRAY (OOS) Service: Unknown (Case [id number] COMPLETE) UNLISTED COPIES FOR OUTSIDE REFER(RAD Detailed) CPT:45006 Reason for Study: UNLISTED COPIES FOR OUTSIDE REFERRAL Clinical History: UNLISTED COPIES FOR OUTSIDE REFERRAL. REQUESTED BY [facility]. ALL ABD/PEL IMAGES FROM 2022. SENT BY UPS TO [facility] TRACKING #[id number] [phone] Report Status: Electronically Filed Date Reported: Report: Copies (CD) made for outside facility. Impression: Copies (CD) made for outside facility Primary Diagnostic Code: VERIFIED BY: / *ELECTRONICALLY FILED* SONYA PINON [facility] Aug 04, 2023 12:45 PM UNLISTED COPIES FO R OUTSIDE REFERRAL: GALINA LOYD [id number] -1945 M Exm Date: AUG 04, 2023@12:45 Req Phys: TODD SANTAMARIA Pat Loc: [facility] RAD MISC XRAY B1RC (Req'g Img Loc: XRAY (OOS) Service: Unknown (Case [id number] COMPLETE) UNLISTED COPIES FOR OUTSIDE REFER(RAD Detailed) CPT:05840 Reason for Study: UNLISTED COPIES FOR OUTSIDE REFERRAL Clinical History: UNLISTED COPIES FOR OUTSIDE REFERRAL. REQUESTED BY [facility] [id number], [id number], [id number]. PICKED UP BY [facility] 08/04/23 Report Status: Electronically Filed Date Reported: Report: Copies (CD) made for outside facility. Impression: Copies (CD) made for outside facility Primary Diagnostic Code: VERIFIED BY: / *ELECTRONICALLY FILED* SONYA PINON [facility] Encounter Notes: All associated encounter notes This section contains the clinical notes associated to the Encounter. Date/Time Encounter Note(s) Provider Source Aug 24, 2023 08:22 AM ADMINISTRATIVE NOT E: LOCAL TITLE: CCC: SCHEDULING ADMINISTRATION STANDARD TITLE: ADMINISTRATIVE NOTE DATE OF NOTE: AUG 24, 2023@08:22:29 ENTRY DATE: AUG 24, 2023@08:22:29 AUTHOR: WADE NEUMANN COSIGNER: URGENCY: STATUS: COMPLETED CCC: SCHEDULING ADMINISTRATION Has ADDENDA Patient Demographics Patient Name: GALINA LOYD Patient Primary Phone: [phone] Patient Primary Address: [address] [place] [address] Patient : 1945 Patient Age: 77 Current Location: Call Back Number: [phone] Caller/Recipient Relation to Patient: Self Administrative Administrative Note Reason: Outside Care Performed Medications Refill/Renewal Request: Marli went to [facility] with a fever and COVID on 08/22/23. Sitat was prescribed Paxlovid and his can not find a pharmacy that can fill the RX for him. [facility]. Administrative Note Comments: Sitat also needs a f/u with PCP post ED visit. /vivian/ WADE NEUMANN VISN 1 [facility] Signed: 08/24/2023 08:22 Receipt Acknowledged By: 08/24/2023 08:37 /vivian/ JENIFER SHANE LPN 08/24/2023 16:44 /vivian/ OJ GIL RN 08/24/2023 16:21 /vivian/ KYRA VELASQUEZ M.D 08/24/2023 ADDENDUM STATUS: COMPLETED records requested /vivian/ JENIFER SHANE LPN Signed: 08/24/2023 08:37 08/24/2023 ADDENDUM STATUS: COMPLETED pt obtained paxlovid locally per 08/24/23 [facility] note /vivian/ KYRA VELASQUEZ M.D Signed: 08/24/2023 16:21 08/24/2023 ADDENDUM STATUS: COMPLETED Issue with getting medication r/t not avail in phaqrmacy- called 7 pharmacies- finally found hugh woud be avail today at [facility]- ER called script in- vet has started atreatment as directed- is given a hard time, but listening to dgt and has been compliant so far. No further issues at this time. Enc to contact clinic should ther be any further needs. /vivian/ OJ GIL RN Signed: 08/24/2023 16:46 WADE NEUMANN [facility]
--- OUTSIDE RECORDS SUMMARY | 2024-05-24 19:18 | XMS_ITS | Encounter Summary ---
Author Name [facility] [place] Organization [place] Address [address] [place] [address] Care Team Providers Care Correctional Supervisor Name Role Phone KYRA VELASQUEZ Primary Care [...] Patient's Relationship to Policy Ervin [facility] (WNR) MEDICARE ADVANTAGE MCR(W NR) * Aug 23, 2023 [id number] ANNALISA LOYD ITE PATIENT [facility] (WNR) MEDICARE ADVANTAGE [facility] (WNR) Aug 23, 2020 [id number] [phone] ANNALISA LOYD ITE PATIENT [facility] (WNR) MEDICARE ADVANTAGE MCR(W NR) Aug 23, 2012 [id number] ANNALISA LOYD ITE PATIENT Selected Encounter This section includes the information on record at [place] for the Encounter. Date/Time Encounter Type Encounter Description Reason Pro vider Source Nov 02, 2023 12:09 AM Outpatient Encounter ADMIN PAT ACTIVTIES (MASNONCT) IHE Encounter Template Text not used by [place] Plan of Treatment: Future Appointments (+ 6 months) and Future Tests (+/- 45 days) The Plan of Treatment section includes future care activities for the patient from all [place] treatmentfacilities. This section includes future appointments and future orders which are active, pending or scheduled. Future Appointments This section includes appointments that were scheduled to occur 6 months from the date of the Encounter, up to a maximum of 20 appointments. The data comes from all [place] treatment facilities. Appointment Date/Time Appointment Type Appointme nt Facility Name Nov 04, 2023 09:00 AM AM[place]ATORY [place] [facility] Nov 04, 2023 09:30 AM AMBULATORY [place] [facility] Nov 29, 2023 11:30 AM AMBULATORY - NONE [facility] Dec 10, 2023 02:00 PM AMB[place]ORY [place] [facility] Dec 13, 2023 02:30 PM AMBULATORY - MEDICINE [facility] Dec 13, 2023 02:31 PM [place]ORY - [place]ONE [place] [facility] Dec 16, 2023 08:00 AM AMBULATORY [place] [facility] Dec 21, 2023 01:30 PM AMBULATORY [place] [facility] Feb 21, 2024 10:15 AM AMBULATORY - NONE [place] [facility] Feb 21, 2024 11:00 AM AMBULATORY - NONE [place] [facility] Mar 18, 2024 12:01 AM AM[place]ULATORY - NONE [place] [facility] Apr 06, 2024 01:00 PM AMBULATORY - NONE [place] [facility] Apr 06, 2024 01:00 PM AMBULATORY - MEDICINE [facility] Apr 10, 2024 01:30 PM AMBULATORY - MEDICINE [facility] Apr 10, 2024 01:31 PM AMBULATORY - NONE [place] [facility] Apr 11, 2024 10:00 AM AMBULATORY - SURGERY [facility] Apr 11, 2024 10:01 AM [place]ORY [place] [facility] Apr 21, 2024 10:30 AM AMBULATORY - NONE [place] [facility] May 03, 2024 02:30 PM AMBULATORY [place] [facility] May 04, 2024 10:30 AM AMBULATORY - MEDICINE [facility] Jannette GAYLE [facility] Lab Results: +/- 30 days of [...] Result - Unit Interpretation Reference Range Comment Nov 29, 2023 11:27 AM [facility] URINALYSIS W/REFLEX TO CULTURE Specimen Type: URINE No comment entered. Ordering Provider: MIRIAN OSORIO CH Report Released Date/Time: Nov 24, 2023 05:48 PM Reporting Lab: [facility] [address] [facility] [address] Performing Lab: [facility] [address] [facility] [address] URINE COLOR Light-Corson NOT DEFINED SPECIFIC GRAVITY 1.013 1.003-1.030 UROBILINOGEN <2.0 mg/dL <2.0 URINE BILIRUBIN NEG NEG URINE KETONES NEG mg/dL NEG URINE GLUCOSE TRACE mg/dL NEG PROTEIN, URINE 100 mg/dL NEG URINE PH 6.5 5-8 WHITE BLOOD CELL/URINE >182 /[HPF] H 0-5 BACTERIA/URINE FEW NONE MUCOUS/URINE FEW NONE RED BLOOD CELL/URINE >182 /[HPF] H 0-2 CLARITY CLOUDY NOT DEFINED URINE BLOOD LG NEG NITRITE, URINE NEG NEG WBC SCREEN LG NEG MICROSCOPIC-iQ Completed WHITE BLOOD CELL CLUMP MANY NONE Social History: Smoking Status (Most current) and Tobacco Use (All prior to encounter date) This section includes the most current, and the historical, smoking and tobacco- related health factors from the [place] facility where the Encounter took place. Current Smoking Status This section includes the most current smoking, or tobacco-related health factor, from the [place] facility where the Encounter took place. Date/Time Current Smoking Status Comment Nataly ity Jul 17, 2021 02:27 PM CURRENT SMOKER REINIER GAYLE [facility] Tobacco Use History This section includes a history of the smoking, or tobacco-related health factors, that were collected on or before the date of the Encounter. The data comes from the [place] facility where the Encounter took place. Date/Time Smoking Status/Tobacco Use Comment F acility Jul 01, 2021 08:55 PM VA-VAAES TOBACCO U SE CURRENT NRT DECLINE [facility] Jul 01, 2021 02:41 PM CURRENT SMOKER REINIER [place] [facility] Dec 08, 2020 08:45 PM VA-TOBACCO USER EVERY DAY [facility] Dec 08, 2020 08:45 PM VA-VAAES TOBACCO U SE CURRENT NRT DECLINE [facility] Dec 08, 2020 06:58 PM VA-TOBACCO FORMER USER [facility] Apr 04, 2015 03:47 PM CURRENT SMOKER Less than a pack a day [facility] Apr 04, 2015 03:47 PM V1-PT NOT INTEREST ED IN QUIT TOBACCO USE [facility] Advance Directives: All historical and current Section Date Range: From patient's date of to the date document was created. This section includes ALL of a patient's completed or amended [place] Advance and Rescinded Directives. The entries below indicate that a directive exists for the patient, but an actual copy is not included with this document. The data comes from all [place] facilities. Date Advance Directives Provider Source Nov 18, 2017 ADVANCE DIRECTIVE RADHA FERNANDEZ [facility] Jul 08, 2017 ADVANCE DIRECTIVE DISCUSSION PURNIMA ROJAS [facility] Radiology Reports: +/- 30 days [...] the Encounter. The data comes from all [place] treatment facilities. Date/Time Radiology Report Provider Source Oct 22, 2023 04:[address] ABD & PELVIS [place] THOUT CONTRAST: GALINA LOYD [id number] -1945 M Exm Date: OCT 22, 2023@04:45 Req Phys: TODD SANTAMARIA Pat Loc: OUTSIDE [facility] CT SCAN (Req'g Loc Img Loc: OUTSIDE [facility] CT SCAN Service: Unknown (Case [id number] COMPLETE) CT ABD & PELVIS WITHOUT CONTRAST (CT Detailed) CPT:82870 Reason for Study: Exam imported from outside Clinical History: Original Data for Imported Study Patient Name: GALINA LOYD Date: 1945 Sex: M Study Date: 10/22/23 Study Time: 04:45:59 Study Description: CT ABDOMEN AND PELVIS WO CONTRAST Referring Physician: JONN GUSTAFSON JR Series 1: 1 CT file, description: Product Craftsman LAT Series 2: 1 CT file, description: Product Craftsman AP Series 3: 1 CT file, description: Patient Protocol Series 4: 156 CT files, description: STD WO F_0.6 Series 5: 778 CT files, description: STD THN WO F_0.6 Series 6: 88 CT files, description: COR 3 WO F_0.6 Series 7: 115 CT files, description: SAG 3 WO F_0.6 Series 8: 2 CA files, description: [id number] Series 9: 1 KO file, description: [id number] Report Status: Electronically Filed Date Reported: NOV 26, 2023 Report: RADIOLOGY PROCEDURE: N O T I C E: SCANNED IN EXAM THIS EXAMINATION WAS PERFORMED AND INTERPRETED AT A NON-[place] FACILITY. To view the Images or report (if a report was included with the images), select the [employer] Tools Menu and choose the Image Display (Viewer) option. Impression: RADIOLOGY PROCEDURE: N O T I C E: SCANNED IN EXAM THIS EXAMINATION WAS PERFORMED AND INTERPRETED AT A NON-[place] FACILITY. To view the Images or report (if a report was included with the images), select the [employer] Tools Menu and choose the Image Display (Viewer) option. VERIFIED BY: / *ELECTRONICALLY FILED* SONYA GAYLE [facility] Pathology Reports: +/- 30 days of the encounter Pathology Reports For cases when an order for pathology services may have been completed prior to the date of the Encounter, the report list includes the Pathology Reports that were completed up to 30 days before dateof the Encounter. For cases when an order for pathology services may have been completed after the date of the Encounter, the report list also includes the Pathology Reports that were completed up to30 days after date of the Encounter. The data comes from all [place] treatment facilities. Date/Time Pathology Report Provider Source Nov 29, 2023 11:27 AM LR MICROBIOLOGY RE PORT: Reporting Lab: [facility] [CLIA# [id number]] [address] [place] [address] Accession [UID]: [id number] [[id number]] Received: Nov 30, 2023@19:53 Collection sample: URINE CLEAN CATCH Collection date: Nov 29, 2023 11:27 Site/Specimen: URINE Provider: CORBY OSORIO Test(s) ordered: CULTURE,URINE CLEAN CATCH..... completed: Dec 02, 2023 13:00 * BACTERIOLOGY FINAL REPORT => Dec 02, 2023 13:01 TECH CODE: [id number] Bacteriology Remark(s): 12/02/23 50,000-99,000 CFU/mL AT LEAST THREE BACTERIAL TYPES PRESENT INDICATING POSSIBLE CONTAMINATION, PLEASE REPEAT COLLECTION. =--=--=--=--=--=--=--=--=--=--= --=--=--=--=--=--=--=--=--=--=- -=--=--=--=--=-- Performing Laboratory: Bacteriology Report Performed By: SONYA [facility] [CLIA# [id number]] [address] [place] [address] [facility] Encounter Notes: All associated encounter notes This section contains the clinical notes associated to the Encounter. Date/Time Encounter Note(s) Provider Source Nov 02, 2023 08:31 AM ADDENDUM: LOCAL TITLE: Addendum STANDARD TITLE: ADDENDUM DATE OF NOTE: NOV 02, 2023@08:31:59 ENTRY DATE: NOV 02, 2023@08:32 AUTHOR: JO GIL EXP COSIGNER: URGENCY: STATUS: COMPLETED Vet uses as protective/prevent measure pressure ulcer coccyx area. /es/ OJ GIL RN Signed: 11/02/2023 08:34 Receipt Acknowledged By: 11/02/2023 14:14 /huber VELASQUEZ M.D === --- Original Document --- 11/02/23 V1 PHARMACY CUSTOMER CARE MEDICATION RENEWAL: Date: Oct Division: [place] Pt referred by Pharmacy Call Center for medication renewal: Non-controlled/maintenanc e medication Medications requested: [id number] DRESS,MEPILEX BORDER FLEX 4X4IN #[id number] Defer to primary care provider To be mailed . Please review and renew if appropriate. *This note was generated by [facility]/[place] [facility] Customer [facility]. If you have any questions or need assistance, do not contact this author. Please refer all questions to your local, on-site pharmacy departments. /huber COWAN CPhT Senior Quality Engineer, [facility]/Ph[facility]acy Customer Care Signed: 11/02/2023 00:10 Receipt Acknowledged By: 11/02/2023 08:27 /huber VELASQUEZ M.D 11/02/2023 08:30 /huber GIL RN 11/02/2023 ADDENDUM STATUS: COMPLETED please clarify why he uses this - not rxed by primary care previously. /huber VELASQUEZ M.D Signed: 11/02/2023 08:30 OJ GIL Tobi [facility] Nov 02, 2023 12:09 AM TELEPHONE ENCOUNTE R NOTE: LOCAL TITLE: V1 PHARMACY CUSTOMER CARE MEDICATION RENEWAL STANDARD TITLE: TELEPHONE ENCOUNTER NOTE DATE OF NOTE: NOV 02, 2023@00:09 ENTRY DATE: NOV 02, 2023@00:10:20 AUTHOR: ALEXANDRO COWAN COSIGNER: URGENCY: STATUS: COMPLETED V1 PHARMACY CUSTOMER CARE MEDICATION RENEWAL Has ADDENDA Date: Oct Division: [place] Pt referred by Pharmacy Call Center for medication renewal: Non-controlled/maintenanc e medication Medications requested: [id number] DRESS,MEPILEX BORDER FLEX 4X4IN #[id number] Defer to primary care provider To be mailed . Please review and renew if appropriate. *This note was generated by [facility]/[place] Pharmacy Customer Care. If you have any questions or need assistance, do not contact this author. Please refer all questions to your local, on-site pharmacy departments. /vivian/ ALEXANDRO COWAN CPhT Senior Quality Engineer, [facility] Customer [facility] Signed: 11/02/2023 00:10 Receipt Acknowledged By: 11/02/2023 08:27 /vivian/ KYRA VELASQUEZ M.D 11/02/2023 08:30 /vivian/ OJ GIL RN 11/02/2023 ADDENDUM STATUS: COMPLETED please clarify why he uses this - not rxed by primary care previously. /vivian/ KYRA VELASQUEZ M.D Signed: 11/02/2023 08:30 11/02/2023 ADDENDUM STATUS: COMPLETED Vet uses as protective/prevent measure pressure ulcer coccyx area. /vivian/ OJ GIL RN Signed: 11/02/2023 08:34 Receipt Acknowledged By: * AWAITING SIGNATURE * KYRA VELASQUEZ KATRINA M [place] [facility]
--- OUTSIDE RECORDS SUMMARY | 2024-05-24 19:18 | XMS_ITS | Encounter Summary ---
Author Name [facility] [place] Address [address] [place] [address] Care Team Providers Care Offbearer Sewer Pipe Name Role Phone RON KYRA Primary Care [...] Ervin's Name Patient's Relationship to Policy Ervin [facility] (WNR) MEDICARE ADVANTAGE [facility](W NR) * Aug 23, 2023 [id number] ANNALISA LOYD ITE PATIENT [facility] MCR (WNR) MEDICARE ADVANTAGE MCR (WNR) Aug 23, 2020 [id number] [phone] ANNALISA LOYD ITE PATIENT [facility] MCR (WNR) MEDICARE ADVANTAGE [facility](W NR) Aug 23, 2012 [id number] ANNALISA LOYD ITE PATIENT Selected Encounter This section includes the information on record at [place] for the Encounter. Date/Time Encounter Type Encounter Description Reason Pro vider Source Jul 13, 2023 12:51 PM Outpatient Encounter COMMUNITY CARE CONSULT IHE Encounter Template Text not used by VA Plan of Treatment: Future Appointments (+ 6 months) and Future Tests (+/- 45 days) The Plan of Treatment section includes future care activities for the patient from all [place] treatmentfacilities. This section includes future appointments and future orders which are active, pending or scheduled. Future Appointments This section includes appointments that were scheduled to occur 6 months from the date of the Encounter, up to a maximum of 20 appointments. The data comes from all [place] treatment facilities. Appointment Date/Time Appointment Type Appointme nt Facility Name Sep 15, 2023 01:00 PM AMBULATORY [place] [facility] Oct 18, 2023 08:00 AM AMBULATORY - NONE [place] [facility] Nov 04, 2023 09:00 AM AM[place]UL[place]ORY [place] [facility] Nov 04, 2023 09:30 AM [place]UL[place] [facility] Nov 29, 2023 11:30 AM AMBULATORY - NONE [facility] Dec 10, 2023 02:00 PM [place] [facility] Dec 13, 2023 02:30 PM AMBULATORY - MEDICINE [facility] Dec 13, 2023 02:31 PM AM[place]UL[place]ORY - NONE [place] [facility] Dec 16, 2023 08:00 AM [place] [facility] Dec 21, 2023 01:30 PM [place] [facility] Lab Results: +/- 30 days of the encounter This section includes the Chemistry and Hematology Lab Results on record with [place] for the patient. Radiology Reports and Pathology Reports are provided separately, in subsequent sections. Lab Results This section contains the Chemistry/Hematology Results that were resulted 30 days before or 30 daysafter the date of the Encounter. Date/Time Source Result Type Result - Unit Interpretation Reference Range Comment Jun 16, 2023 01:20 PM [place] [facility] PSA (RETAIL PROPERTY MANAGER) Specimen Type: SERUM Comment: Tests performed on [place] Industrial Engineer (405) [id number] Ordering Provider: THERON HEIN Report Released Date/Time: Dec 09, 2022 08:40 AM Reporting Lab: [place] [facility] [address] [place] [address] Performing Lab: [place] [facility] [address] [facility] [id number] PSA (RETAIL PROPERTY MANAGER) 0.13 ng/mL 0-4.0 Social History: Smoking Status (Most current) and Tobacco Use (All prior to encounter date) This section includes the most current, and the historical, smoking and tobacco- related health factors from the [place] facility where the Encounter took place. Current Smoking Status This section includes the most current smoking, or tobacco-related health factor, from the [place] facility where the Encounter took place. Date/Time Current Smoking Status Comment Facil ity Jul 17, 2021 02:27 PM CURRENT SMOKER REINIER Bhatia [facility] Tobacco Use History This section includes a history of the smoking, or tobacco-related health factors, that were collected on or before the date of the Encounter. The data comes from the [place] facility where the Encounter took place. Date/Time Smoking Status/Tobacco Use Comment F acility Jul 01, 2021 08:55 PM VA-VAAES TOBACCO U SE CURRENT NRT DECLINE [facility] Jul 01, 2021 02:41 PM CURRENT SMOKER REINIER Bhatia [facility] Dec 08, 2020 08:45 PM VA-TOBACCO USER EVERY DAY [facility] Dec 08, 2020 08:45 PM VA-VAAES TOBACCO U SE CURRENT NRT DECLINE [facility] Dec 08, 2020 06:58 PM VA-TOBACCO FORMER USER [facility] Apr 04, 2015 03:47 PM CURRENT SMOKER Less than a pack a day [facility] Apr 04, 2015 03:47 PM V1-PT NOT INTEREST ED IN QUIT TOBACCO USE [facility] Advance Directives: All historical and current Section Date Range: From patient's date of to the date document was created. This section includes ALL of a patient's completed or amended [place] Advance and Rescinded Directives. The entries below indicate that a directive exists for the patient, but an actual copy is not included with this document. The data comes from all [place] facilities. Date Advance Directives Provider Source Nov 18, 2017 ADVANCE DIRECTIVE RADHA FERNANDEZ [facility] Jul 08, 2017 ADVANCE DIRECTIVE DISCUSSION PURNIMA ROJAS [facility] Radiology Reports: +/- 30 days [...] the Encounter. The data comes from all [place] treatment facilities. Date/Time Radiology Report Provider Source Aug 04, 2023 12:45 PM UNLISTED COPIES FO R OUTSIDE REFERRAL: GALINA LOYD [id number] -1945 M Exm Date: AUG 04, 2023@12:45 Req Phys: TODD SANTAMARIA Pat Loc: [facility] RAD MISC XRAY B1RC (Req'g Img Loc: XRAY (OOS) Service: Unknown (Case [id number] COMPLETE) UNLISTED COPIES FOR OUTSIDE REFER(RAD Detailed) CPT:53264 Reason for Study: UNLISTED COPIES FOR OUTSIDE REFERRAL Clinical History: UNLISTED COPIES FOR OUTSIDE REFERRAL. REQUESTED BY SAAD JOHNSON [id number], [id number], [id number]. PICKED UP BY SAAD 08/04/23 Report Status: Electronically Filed Date Reported: Report: Copies (CD) made for outside facility. Impression: Copies (CD) made for outside facility Primary Diagnostic Code: VERIFIED BY: / *ELECTRONICALLY FILED* SONYA GAYLE T [facility] Encounter Notes: All associated encounter notes This section contains the clinical notes associated to the Encounter. Date/Time Encounter Note(s) Provider Source Jul 13, 2023 12:51 PM NONVA NOTE: LOCAL TITLE: COMMUNITY CARE-CARE COORDINATION PLAN NOTE STANDARD TITLE: NONVA NOTE DATE OF NOTE: JUL 13, 2023@12:51 ENTRY DATE: JUL 13, 2023@12:51:51 AUTHOR: GAGANDEEP CHUNG EXP COSIGNER: URGENCY: STATUS: COMPLETED Community Care Consult: COMMUNITY CARE-NEUROLOGY Consult No: [id number] [facility] Referral #: [id number] Community Provider or Hospital Information Community Provider Information [facility] [address], [place] [address] Chief Complaint: Other Seizures(ICD-10-CM G40.89) Patient Admitted? No Level of Care Coordination Complex/Chronic Care Coordination was determined from: Chart Review Facility Community Care Office Contact Care Coordination Point of Contact: [facility] Services: Moderate Care Coordination Services Case Management, if appropriate Direct communications with interdisciplinary team Plan: This referral for Neurology was sent to [facility]. [place] has an appt on 08/30/23 @ 13:00. This referral will on 02/26/2024. /vivian/ GAGANDEEP CHUNG RN Signed: 07/13/2023 12:57 GAGANDEEP CHUNG [facility]
--- OUTSIDE RECORDS SUMMARY | 2024-05-24 19:18 | XMS_ITS | Encounter Summary ---
Author Name [place] Organization [place] Address [address] [place] [address] Care Team Providers Care Single Stayer Operator Name Role Phone KYRA VELASQUEZ Primary [...] Ervin's Name Patient's Relationship to Policy Ervin [facility] (WNR) MEDICARE [facility](W NR) * Aug 23, 2023 [id number] ANNALISA LOYD ITE PATIENT [facility] (WNR) MEDICARE ADVANTAGE [facility] (WNR) Aug 23, 2020 [id number] [phone] ANNALISA LOYD ITE PATIENT [facility] (WNR) MEDICARE ADVANTAGE [facility](W NR) Aug 23, 2012 [id number] [phone] ANNALISA LOYD PATIENT Selected Encounter This section includes the information on record at [place] for the Encounter. Date/Time Encounter Type Encounter [...] this document. The data comes from all [place] facilities. Date Advance Directives Provider Source Nov 18, 2017 ADVANCE DIRECTIVE RADHA FERNANDEZ [facility] Jul 08, 2017 ADVANCE DIRECTIVE DISCUSSION PURNIMA ROJAS [facility]
--- OUTSIDE RECORDS SUMMARY | 2024-05-24 19:18 | XMS_ITS | Encounter Summary ---
Author Name [place] Address [address] [place] [address] Care Team Providers Care Glass Edger Name Role Phone RON KYRA Primary Care [...] Ervin's Name Patient's Relationship to Policy Ervin [facility] (WNR) MEDICARE ADVANTAGE [facility](W NR) * Aug 23, 2023 [id number] ANNALISA LOYD ITE PATIENT [facility] MCR (WNR) MEDICARE ADVANTAGE [facility] (WNR) Aug 23, 2020 [id number] [phone] ANNALISA LOYD ITE PATIENT [facility] MCR (WNR) MEDICARE ADVANTAGE [facility](W NR) Aug 23, 2012 [id number] ANNALISA LOYD ITE PATIENT Selected Encounter This section includes the information on record at [place] for the Encounter. Date/Time Encounter Type Encounter Description Reason Provider Source Aug 25, 2023 12:46 PM Outpatient Encounter TELEPHONE TRIAGE CHINMAY DALTON IHE Encounter Template Text not used by VA Plan of Treatment: Future Appointments (+ 6 months) and Future Tests (+/- 45 days) The Plan of Treatment section includes future care activities for the patient from all [place] [facility]. This section includes future appointments and future orders which are active, pending or scheduled. Future Appointments This section includes appointments that were scheduled to occur 6 months from the date of the Encounter, up to a maximum of 20 appointments. The data comes from all [place] treatment facilities. Appointment Date/Time Appointment Type Appointme nt Facility Name Sep 15, 2023 01:00 PM [place] [facility] Oct 18, 2023 08:00 AM [place]ORY - NONE [place] [facility] Nov 04, 2023 09:00 AM [place] [facility] Nov 04, 2023 09:30 AM [place] [facility] Nov 29, 2023 11:30 AM AMBULATORY - NONE [facility] Dec 10, 2023 02:00 PM [place] [facility] Dec 13, 2023 02:30 PM AMBULATORY - MEDICINE [facility] Dec 13, 2023 02:31 PM [place]ORY - NONE [place] [facility] Dec 16, 2023 08:00 AM [place] [facility] Dec 21, 2023 01:30 PM [place] [facility] Feb 21, 2024 10:15 AM [place]ATORY - NONE [place] [facility] Feb 21, 2024 11:00 AM [place]ORY - NONE [place] [facility] Social History: Smoking Status (Most current) and Tobacco Use (All prior to encounter date) This section includes the most current, and the historical, smoking and tobacco- related health factors from the [place] facility where the Encounter took place. Current Smoking Status This section includes the most current smoking, or tobacco-related health factor, from the [place] facility where the Encounter took place. Date/Time Current Smoking Status Melissa schaeffer Jul 17, 2021 02:27 PM CURRENT SMOKER WHIT E NALINI [facility] Tobacco Use History This section includes a history of the smoking, or tobacco-related health factors, that were collected on or before the date of the Encounter. The data comes from the [place] facility where the Encounter took place. Date/Time Smoking Status/Tobacco Use Comment F acility Jul 01, 2021 08:55 PM VA-VAAES TOBACCO U SE CURRENT NRT DECLINE SONYA [facility] Jul 01, 2021 02:41 PM CURRENT SMOKER REINIER GAYLE [facility] Dec 08, 2020 08:45 PM VA-TOBACCO USER EVERY DAY [facility] Dec 08, 2020 08:45 PM VA-VAAES TOBACCO U SE CURRENT NRT DECLINE SONYA [facility] Dec 08, 2020 06:58 PM VA-TOBACCO FORMER USER [facility] Apr 04, 2015 03:47 PM CURRENT SMOKER Less than a pack a day [facility] Apr 04, 2015 03:47 PM V1-PT NOT INTEREST ED IN QUIT TOBACCO USE [facility] Advance Directives: All historical and current Section Date Range: From patient's date of to the date document was created. This section includes ALL of a patient's completed or amended [place] Advance and Rescinded Directives. The entries below indicate that a directive exists for the patient, but an actual copy is not included with this document. The data comes from all [place] facilities. Date Advance Directives Provider Source Nov 18, 2017 ADVANCE DIRECTIVE RADHA FERNANDEZ [facility] Jul 08, 2017 ADVANCE DIRECTIVE DISCUSSION PURNIMA ROJAS [facility] Radiology Reports: +/- 30 days of [...] the Encounter. The data comes from all [place] treatment facilities. Date/Time Radiology Report Provider Source Sep 10, 2023 03:25 PM UNLISTED COPIES FO R OUTSIDE REFERRAL: GALINA LOYD [id number] -1945 M Exm Date: SEP 10, 2023@15:25 Req Phys: TODD SANTAMARIA Pat Loc: [facility] RAD MISC XRAY B1RC (Req'g Img Loc: XRAY (OOS) Service: Unknown (Case [id number] COMPLETE) UNLISTED COPIES FOR OUTSIDE REFER(RAD Detailed) CPT:35623 Reason for Study: UNLISTED COPIES FOR OUTSIDE REFERRAL Clinical History: UNLISTED COPIES FOR OUTSIDE REFERRAL. REQUESTED BY [facility]. ALL ABD/PEL IMAGES FROM 2022. SENT BY UPS TO [facility] TRACKING #[id number] [phone] Report Status: Electronically Filed Date Reported: Report: Copies (CD) made for outside facility. Impression: Copies (CD) made for outside facility Primary Diagnostic Code: VERIFIED BY: / *ELECTRONICALLY FILED* SONYA PINON [facility] Aug 04, 2023 12:45 PM UNLISTED COPIES FO R OUTSIDE REFERRAL: GALINA LOYD [id number] -1945 M Exm Date: AUG 04, 2023@12:45 Req Phys: TODD SANTAMARIA Pat Loc: [facility] RAD MISC XRAY B1RC (Req'g Img Loc: XRAY (OOS) Service: Unknown (Case [id number] COMPLETE) UNLISTED COPIES FOR OUTSIDE REFER(RAD Detailed) CPT:80995 Reason for Study: UNLISTED COPIES FOR OUTSIDE REFERRAL Clinical History: UNLISTED COPIES FOR OUTSIDE REFERRAL. REQUESTED BY SAAD JOHNSON [id number], [id number], [id number]. PICKED UP BY SAAD 08/04/23 Report Status: Electronically Filed Date Reported: Report: Copies (CD) made for outside facility. Impression: Copies (CD) made for outside facility Primary Diagnostic Code: VERIFIED BY: / *ELECTRONICALLY FILED* SONYA PINON [facility] Encounter Notes: All associated encounter notes This section contains the clinical notes associated to the Encounter. Date/Time Encounter Note(s) Provider Source Aug 25, 2023 12:46 PM RN PROGRESS NOTE: LOCAL TITLE: CCC: CLINICAL TRIAGE STANDARD TITLE: RN PROGRESS NOTE DATE OF NOTE: AUG 25, 2023@12:46:51 ENTRY DATE: AUG 25, 2023@12:46:51 AUTHOR: CHINMAY DALTON COSIGNER: URGENCY: STATUS: COMPLETED CCC: CLINICAL TRIAGE Has ADDENDA Patient Demographics Patient Name: GALINA LOYD Patient Primary [address]: [address] [place] [id number] Patient Primary Phone: [phone] Patient : 1945 Patient Age: 77 Current Location: home Call Back Number: verified Caller/Recipient Relation to Patient: Self Emergency Contact: MARIE LOYD Triage Summary Conducted triage/discussed symptoms Pain Score: 1 Utilized the Triage Tool: Yes Chief Complaint: Bedsore System WHEN: Within 24 Hours Nurse's Recommendation / WHEN: Within 24 Hours System WHERE: Clinic Nurse's Recommendation / WHERE: Clinic/[facility] Patient Disposition Patient/Caregiver agrees to plan of care: No Patient WHERE: Refused Patient WHEN: Other Other - Patient When Disposition: Rangel was diagnosed with Covid-19 on [place] and is not done isolation/recovery yet Nursing Plan and Disposition Other course(s) of action Generated msg to PACT/Provider Nurse Summary Nurse Summary: Rangel's is calling to state that he needs to be issued supplies for a bedsore again. [place] has had them in the past and they were able to heal them with supplies given. Caller states he has about a days worth of supplies left. He needs specifically some silicone adhesive with border pads, 7 x7 inch pads, 5 x 5 inch pads. and med honey. 's states that a pea sized sore has opening up to 's tailbone which is tiny and red but has no drainage and is minimally painful. [place] has had no fever x 5 days. However, Rangel was diagnosed with Covid-19 on [place] leydi and has a history of lymphoma and prostate ca. Encouraged him to move [place] side to side with pillows to avoid pressure on coccyx which he agreed to do. Says Rangel has been in bed more since having Covid-19. Discussed [facility] recommendation to be seen within 24 hours however Rangel is not yet completed with his Covid-19 isolation so could not be seen in clinic. PACT team: Please call back to advise if supplies could be sent overnight to [place] for above bedsore as he has Covid-19 and cannot be seen in clinic. states they have been able to heal bedsores in the past but he only has supplies for one more day of dressing change. Please advise. Clinical Contact Center Codes Clinic/Location: V1 [facility] PHONE CCC RN [facility] Triage Complete Triage Note: Phone Triage Wed, 25 Aug 2023 17:34:27 +0000 [facility] Demographics 77 y/o Male Results CC: Bedsore Software suggested: Within 24 Hours Software suggested follow-up location: Clinic, consider virtual care Values and Measures Duration of CC: 5 Days Positive Responses HPI: skin tenderness, around the ulcer HPI: skin ulcer erythema, worsening VS: temperature not taken Negative Responses Denies: HPI: fever, subjective Denies: HPI: red streaks, from the ulcer or sore Denies: HPI: skin swelling, around the ulcer Denies: HPI: skin ulcer, purulent drainage Denies: HPI: weakness, with diaphoresis Denies: MEDS: chemotherapy Denies: MEDS: oral corticosteroids taken daily Denies: PMH: diabetes Denies: PMH: HIV positive Denies: PSH: organ transplant /vivian/ CHINMAY COATS VISManas [facility] RN Signed: 08/25/2023 12:47 Receipt Acknowledged By: 08/30/2023 08:25 /vivian/ JENIFER SHANE LPN 08/26/2023 09:12 /vivian/ OJ GIL RN 08/26/2023 ADDENDUM STATUS: COMPLETED vet devekoping skin breakdown d/t increased time in bed r/t current illness. has managed care in the past- additional suupplies sent as is almost out. Will contact clinic should areas not progress to healing. /vivian/ OJ GIL RN Signed: 08/26/2023 09:14 CHINMAY DALTON [facility]
--- OUTSIDE RECORDS SUMMARY | 2024-05-24 19:18 | XMS_ITS | Encounter Summary ---
Author Name [facility] [place] Address [address] [place] [address] Care Team Providers Care Wage And Salary Administrator Name Role Phone KYRA VELASQUEZ Primary Care [...] Ervin's Name Patient's Relationship to Policy Ervin [facility] (WNR) MEDICARE ADVANTAGE MCR(W NR) * Aug 23, 2023 [id number] [phone] ANNALISA LOYD ITE PATIENT [facility] (WNR) MEDICARE ADVANTAGE [facility] (WNR) Aug 23, 2020 [id number] [phone] ANNALISA LOYD ITE PATIENT [facility] (WNR) MEDICARE ADVANTAGE MCR(W NR) Aug 23, 2012 [id number] ANNALISA LOYD ITE PATIENT Selected Encounter This section includes the information on record at [place] for the Encounter. Date/Time Encounter Type Encounter Description Reason Pro vider Source Nov 05, 2023 11:45 AM Outpatient Encounter ADMIN PAT ACTIVTIES (MASNONCT) IHE Encounter Template Text not used by [place] Plan of Treatment: Future Appointments (+ 6 months) and Future Tests (+/- 45 days) The Plan of Treatment section includes future care activities for the patient from all [place] treatmentfacilities. This section includes future appointments and future orders which are active, pending or scheduled. Future Appointments This section includes appointments that were scheduled to occur 6 months from the date of the Encounter, up to a maximum of 20 appointments. The data comes from all [place] treatment facilities. Appointment Date/Time Appointment Type Appointme nt Facility Name Nov 29, 2023 11:30 AM AMBULATORY - NONE [facility] Dec 10, 2023 02:00 PM [place]ORY [place] [facility] Dec 13, 2023 02:30 PM AMBULATORY - MEDICINE [facility] Dec 13, 2023 02:31 PM [place]ORY - [place] [facility] Dec 16, 2023 08:00 AM [place]ORY [place] [facility] Dec 21, 2023 01:30 PM [place]ORY [place] [facility] Feb 21, 2024 10:15 AM AMBULATORY - NONE [place] [facility] Feb 21, 2024 11:00 AM AM[place]ATORY - [place] [facility] Mar 18, 2024 12:01 AM AM[place]ORY - [place]ONE [place] [facility] Apr 06, 2024 01:00 PM AM[place]ATORY - [place]ONE [place] [facility] Apr 06, 2024 01:00 PM AMBULATORY - MEDICINE [facility] Apr 10, 2024 01:30 PM AMBULATORY - MEDICINE [facility] Apr 10, 2024 01:31 PM [place]ORY [place] [facility] Apr 11, 2024 10:00 AM AMBULATORY - SURGERY [facility] Apr 11, 2024 10:01 AM AMBULATORY - [place] [facility] Apr 21, 2024 10:30 AM AM[place]ATORY - NONE [place] [facility] May 03, 2024 02:30 PM AMBUL[place]ORY [place] [facility] May 04, 2024 10:30 AM [place] [facility] May 04, 2024 11:00 AM AMBULATORY - [place]GERY [place] [facility] May 04, 2024 12:30 PM [place]ORY - NONE [place] [facility] Lab Results: +/- 30 days of [...] Range Comment Nov 29, 2023 11:27 AM [facility] URINALYSIS W/REFLEX TO CULTURE Specimen Type: URINE No comment entered. Ordering Provider: MIRIAN OSORIO CH Report Released Date/Time: Nov 24, 2023 05:48 PM Reporting Lab: [facility] [address] [address] Performing Lab: [facility] [address] [address] URINE COLOR Light-Douglas NOT DEFINED SPECIFIC GRAVITY 1.013 1.003-1.030 UROBILINOGEN [...] and tobacco- related health factors from the [place] facility where the Encounter took place. Current Smoking Status This section includes the most current smoking, or tobacco-related health factor, from the [place] facility where the Encounter took place. Date/Time Current Smoking Status Comment Nataly ity Jul 17, 2021 02:27 PM CURRENT SMOKER REINIER GAYLE [facility] Tobacco Use History This section includes a history of the smoking, or tobacco-related health factors, that were collected on or before the date of the Encounter. The data comes from the [place] facility where the Encounter took place. Date/Time Smoking Status/Tobacco Use Comment F acility Jul 01, 2021 08:55 PM VA-VAAES TOBACCO U SE CURRENT NRT DECLINE [facility] Jul 01, 2021 02:41 PM CURRENT SMOKER REINIER GAYLE [facility] Dec 08, 2020 08:45 PM VA-TOBACCO [...] ALL of a patient's completed or amended [place] Advance and Rescinded Directives. The entries below indicate that a directive exists for the patient, but an actual copy is not included with this document. The data comes from all [place] facilities. Date Advance Directives Provider Source Nov [...] the Encounter. The data comes from all [place] treatment facilities. Date/Time Radiology Report Provider Source Oct 22, 2023 04:[address] ABD & PELVIS WI THOUT CONTRAST: GALINA LOYD [id number] -1945 M Exm Date: OCT 22, 2023@04:45 Req Phys: TODD SANTAMARIA Pat Loc: OUTSIDE [facility] CT SCAN (Req'g Loc Img Loc: OUTSIDE [facility] CT SCAN Service: Unknown (Case [id number] COMPLETE) CT ABD & PELVIS WITHOUT CONTRAST (CT Detailed) CPT:09673 Reason for Study: Exam imported from outside Clinical History: Original Data for Imported Study Patient Name: GALINA LOYD Date: 1945 Sex: M Study Date: 10/22/23 Study Time: 04:45:59 Study Description: CT ABDOMEN AND PELVIS WO CONTRAST Referring Physician: JONN GUSTAFSON JR Series 1: 1 CT file, description: Absorption And Adsorption Engineer LAT Series 2: 1 CT file, description: Absorption And Adsorption Engineer AP Series 3: 1 CT file, description: Patient Protocol Series 4: 156 CT files, description: STD WO F_0.6 Series 5: 778 CT files, description: STD THN WO F_0.6 Series 6: 88 CT files, description: COR 3 WO F_0.6 Series 7: 115 CT files, description: SAG 3 WO F_0.6 Series 8: 2 AK files, description: [id number] Series 9: 1 KO file, description: [id number] Report Status: Electronically Filed Date Reported: NOV 26, 2023 Report: RADIOLOGY PROCEDURE: N O T I C E: SCANNED IN EXAM THIS EXAMINATION WAS PERFORMED AND INTERPRETED AT A NON-[place] FACILITY. To view the Images or report (if a report was included with the images), select the m-spatialS Tools Menu and choose the Image Display (Viewer) option. Impression: RADIOLOGY PROCEDURE: N O T I C E: SCANNED IN EXAM THIS EXAMINATION WAS PERFORMED AND INTERPRETED AT A NON-[place] FACILITY. To view the Images or report (if a report was included with the images), select the CPRS Tools Menu and choose the Image Display (Viewer) option. VERIFIED BY: / *ELECTRONICALLY FILED* SONYA GAYLE Tobi [facility] Pathology Reports: +/- 30 days of [...] the Encounter. The data comes from all [place] treatment facilities. Date/Time Pathology Report Provider Source Nov 29, 2023 11:27 AM LR MICROBIOLOGY RE PORT: Reporting Lab: [facility] [CLIA# [id number]] [address] [place] [address] Accession [UID]: [id number] [[id number]] Received: Nov 30, 2023@19:53 Collection sample: URINE CLEAN CATCH Collection date: Nov 29, 2023 11:27 Site/Specimen: URINE Provider: CORBY OSORIO Test(s) ordered: CULTURE,URINE CLEAN CATCH..... completed: Dec 02, 2023 13:00 * BACTERIOLOGY FINAL REPORT => Dec 02, 2023 13:01 TECH CODE: [id number] Bacteriology Remark(s): 12/02/23 50,000-99,000 CFU/mL AT LEAST THREE BACTERIAL TYPES PRESENT INDICATING POSSIBLE CONTAMINATION, PLEASE REPEAT COLLECTION. =--=--=--=--=--=--=--=--=--=--= --=--=--=--=--=--=--=--=--=--=- -=--=--=--=--=-- Performing Laboratory: Bacteriology Report Performed By: SONYA [facility] [CLIA# [id number]] [address] [place] [address] [facility] Encounter Notes: All associated encounter notes This section contains the clinical notes associated to the Encounter. Date/Time Encounter Note(s) Provider Source Nov 05, 2023 11:45 AM ADMINISTRATIVE NOT E: LOCAL TITLE: Has Admin Note STANDARD TITLE: ADMINISTRATIVE NOTE DATE OF NOTE: NOV 05, 2023@11:45 ENTRY DATE: NOV 05, 2023@11:45:39 AUTHOR: ANNETTE ZHONG COSIGNER: URGENCY: STATUS: COMPLETED Has Admin Note Has ADDENDA Reason for call Clinic Name:[facility] Scheduled the pt for 05/04/24. Pt needs a CTA prior and is aware someone will reach out to schedule this. /vivian/ ANNETTE MENDOZA Signed: 11/05/2023 11:46 Receipt Acknowledged By: 11/11/2023 10:07 /vivian/ RIP MENDOZA 11/11/2023 ADDENDUM STATUS: COMPLETED left message for [place] requesting return call to schedule CT To be coordinated w/ VL and VS on 05/04/24 /vivian/ RIP MENDOZA Signed: 11/11/2023 10:20 ANNETTE ZHONG [facility]
--- OUTSIDE RECORDS SUMMARY | 2024-05-24 19:18 | XMS_ITS | Encounter Summary ---
Author Name [facility] [place] Address [address] [place] [address] Care Team Providers Care Bus Boy Name Role Phone KYRA VELASQUEZ Primary Care [...] Name Patient's Relationship to Policy Ervin [facility] (WNR) MEDICARE ADVANTAGE [facility](W NR) * Aug 23, 2023 [id number] ANNALISA LOYD ITE PATIENT [facility] (WNR) MEDICARE ADVANTAGE [facility] (WNR) Aug 23, 2020 [id number] [phone] ANNALISA LOYD ITE PATIENT [facility] (WNR) MEDICARE ADVANTAGE [facility](W NR) Aug 23, 2012 [id number] ANNALISA LOYD ITE PATIENT Selected Encounter This section includes the information on record at [place] for the Encounter. Date/Time Encounter Type Encounter Description Reason Pro vider Source Aug 24, 2023 12:04 PM Outpatient Encounter PRIMARY CARE/MEDICINE IHE Encounter Template Text not used by [place] Plan of Treatment: Future Appointments (+ 6 months) and Future Tests (+/- 45 days) The Plan of Treatment section includes future care activities for the patient from [facility] [place] [facility] This section includes future appointments and future orders which are active, pending or scheduled. Future Appointments This section includes appointments that were scheduled to occur 6 months from the date of the Encounter, up to a maximum of 20 appointments. The data comes from all [place] treatment facilities. Appointment Date/Time Appointment Type Appointme nt Facility Name Sep 15, 2023 01:00 PM [place] [facility] Oct 18, 2023 08:00 AM AM[place]ULATORY - NONE [place] [facility] Nov 04, 2023 09:00 AM [place] [facility] Nov 04, 2023 09:30 AM [place] [facility] Nov 29, 2023 11:30 AM AMBULATORY - NONE [facility] Dec 10, 2023 02:00 PM [place] [facility] Dec 13, 2023 02:30 PM AMBULATORY - MEDICINE [facility] Dec 13, 2023 02:31 PM AMBULATORY - NONE [place] [facility] Dec 16, 2023 08:00 AM [place] [facility] Dec 21, 2023 01:30 PM [place] [facility] Feb 21, 2024 10:15 AM AMBULATORY - NONE [place] [facility] Feb 21, 2024 11:00 AM AMBULATORY - NONE [place] [facility] Social History: Smoking Status (Most current) and Tobacco Use (All prior to encounter date) This section includes the most current, and the historical, smoking and tobacco- related health factors from the [place] facility where the Encounter took place. Current Smoking Status This section includes the most current smoking, or tobacco-related health factor, from the [place] facility where the Encounter took place. Date/Time Current Smoking Status Melissa schaeffer Jul 17, 2021 02:27 PM CURRENT SMOKER WHIT E NALINI [facility] Tobacco Use History This section includes a history of the smoking, or tobacco-related health factors, that were collected on or before the date of the Encounter. The data comes from the [place] facility where the Encounter took place. Date/Time Smoking Status/Tobacco Use Comment F acility Jul 01, 2021 08:55 PM VA-VAAES TOBACCO U SE CURRENT NRT DECLINE [facility] Jul 01, 2021 02:41 PM CURRENT SMOKER REINIER GAYLE [facility] Dec 08, 2020 08:45 PM VA-TOBACCO [...] this document. The data comes from all [place] facilities. Date Advance Directives Provider Source Nov [...] the Encounter. The data comes from all [place] treatment facilities. Date/Time Radiology Report Provider Source Sep 10, 2023 03:25 PM UNLISTED COPIES FO R OUTSIDE REFERRAL: GALINA LOYD CARISA [id number] -1945 M Exm Date: SEP 10, 2023@15:25 Req Phys: TODD SANTAMARIA Pat Loc: [facility] RAD MISC XRAY B[facility] (Req'g Img Loc: XRAY (OOS) Service: Unknown (Case [id number] COMPLETE) UNLISTED COPIES FOR OUTSIDE REFER(RAD Detailed) CPT:49096 Reason for Study: UNLISTED COPIES FOR OUTSIDE REFERRAL Clinical History: UNLISTED COPIES FOR OUTSIDE REFERRAL. REQUESTED BY [facility]. ALL ABD/PEL IMAGES FROM 2022. SENT BY UPS TO [facility] TRACKING #[id number] [phone] Report Status: Electronically Filed Date Reported: Report: Copies (CD) made for outside facility. Impression: Copies (CD) made for outside facility Primary Diagnostic Code: VERIFIED BY: / *ELECTRONICALLY FILED* SONYA PINON [facility] Aug 04, 2023 12:45 PM UNLISTED COPIES FO R OUTSIDE REFERRAL: GALINA LOYD [id number] -1945 M Exm Date: AUG 04, 2023@12:45 Req Phys: TODD SANTAMARIA Pat Loc: [facility] RAD MISC XRAY [facility] (Req'g Img Loc: XRAY (OOS) Service: Unknown (Case [id number] COMPLETE) UNLISTED COPIES FOR OUTSIDE REFER(RAD Detailed) CPT:90133 Reason for Study: UNLISTED COPIES FOR OUTSIDE REFERRAL Clinical History: UNLISTED COPIES FOR OUTSIDE REFERRAL. REQUESTED BY [facility]AD JOHNSON [id number], [id number], [id number]. PICKED UP BY SAAD 08/04/23 Report Status: Electronically Filed Date Reported: Report: Copies (CD) made for outside facility. Impression: Copies (CD) made for outside facility Primary Diagnostic Code: VERIFIED BY: / *ELECTRONICALLY FILED* SONYA GAYLE Tobi [facility] Encounter Notes: All associated encounter notes This section contains the clinical notes associated to the Encounter. Date/Time Encounter Note(s) Provider Source Aug 22, 2023 12:04 PM NONVA NOTE: LOCAL TITLE: NonVA Medical Records STANDARD TITLE: NONVA NOTE DATE OF NOTE: AUG 22, 2023@12:04 ENTRY DATE: AUG 24, 2023@12:04:21 AUTHOR: JENIFER SHANE COSIGNER: URGENCY: STATUS: COMPLETED NonVA Medical Records Has ADDENDA EVENT PROCEDURE: Emergency Room Note TREATING FACILITY: [facility] Discharge Plan Disposition Patient Disposition: Home Condition: Stable Discharge Details Clinical Impression: COVID, Fever ED Provider: Alfredo Moore [place] Meds and New Rx's Prescriptions: New Paxlovid 300 mg (150 mg x 2)-100 mg tablets,dose pack See Rx Instructions ROUTE COMPLEX Qty: 30 0RF Rx Instructions: take TWO 150 mg tablets of nirmatrelvir with ONE 100 mg tablet of ritonavir twice daily for 5 days Held atorvastatin 80 mg Tablet 80 mg PO DAILY Hold Instructions: Resume on 08/28/23. tamsulosin 0.4 mg Capsule 0.4 mg PO BID Hold Instructions: Resume on 08/28/23. Discharge Instructions Instructions: COVID-19 (Coronavirus Disease 2019) (ED) Additional Instructions: [facility] is open 10am-3pm tomorrow so you can get your prescription hold your atorvastatin and tasmulosin until the day after you finished the paxlovid follow up with your primary care provider within 1-2 weeks if not feeling improved if you feel more ill, have difficulty breathing or severe pain return to the emergency department Medical Decision Making 77 yo male with hx of hid and had a stent placed earlier this month for a kidney stone [place] [facility] [place] [place] who comes in after he states his felt he has had an intermittent fever since [place]. He is caox4 and answers questions appropriately but doesn't believe he has actually had a fever and when asked why his has told him he thinks he has a fever he shrugs his shoulders and doesn't give a clear answer. He is afebrile here and has stable vitals, Fever (Acute) COVID (Acute) Closed fracture of left proximal humerus (Acute 01/10/23) Breakthrough seizure ([place] appears well. He denies cough, chest pain, abdomen pain, n/v. He has clear lungs, soft abdomen. Unclear etiology for his alleged fever his reported but will check cbc, cm p, procalcitonin and cxr and reassess. xray unremarkable, ua with rbc's and wbc's which could be from his stent, will treat with a one time dose of fosfomycin. He is covid positive. No oxygen requirement, still caox4, stable for d/c, will start on paxlovid and advised to f/u with pcp, return precautions given Differential Diagnosis Differential Diagnosis: covid, pneumonia, uti Medical Records Medical records reviewed: Yes I reviewed the patient's medical records. Lab Data Lab results reviewed: Yes I reviewed the patient's lab results. HPI General Mode of arrival: ambulatory. Date/Time Provider Initiated Documentation: 08/22/23 16:16 . Limitations to Documentation: no limitations. Information obtained by: patient. History of Present Illness 77 year old M presents to the emergency department with the chief corn plaint of ?fever, described as mild, Patient started experiencing this day(s) (5) and it has been intermittent. No relieving factors im prove sym ptom (s), No exacerbating factors reported . Patient notes no other symptoms.; denies chest pain and fever/chills. Patient did receive the following treatments prior to arrival, none Exam Const General: no acute distress Orientation: alert [facility] Head: normal to inspection Ears: external ears normal General nose exam: external nose normal Mouth: moist mucous membranes Eyes General: appearance normal, both eyes and all related structures Neck Neck: normal visual inspection Resp Effort & Inspection: normal respiratory effort and able to speak in complete sentences Auscultation: clear to auscultation bilaterally Cecile Rate regular rate Heart Sounds: no murmurs GI Palpation: soft and nontender Skin General skin exam : no rashes or lesions noted Neuro General: patient alert and patient oriented x3 Extrem General: normal to inspection Psych Mental Status: mental status grossly normal 08/22/23 16:28 Blood Blood Culture - Pending 08/22/23 16:28 Blood Blood Culture - Pending THE ATTACHED SCANNED DOCUMENT HAS BEEN REVIEWED AND AUTHORIZED BY DOCUMENT (S) SENT TO [employer] TO BE SCANNED. TO VIEW THIS DOCUMENT, OPEN CPRS TOOLS MENU AND THEN OPEN THE IMAGE DISPLAY VIEWER. /vivian/ JENIFER SHANE LPN Signed: 08/24/2023 12:08 Receipt Acknowledged By: 08/24/2023 16:20 /es/ KYRA VELASQUEZ M.D 08/24/2023 16:48 /vivian/ OJ GIL RN 08/26/2023 ADDENDUM STATUS: COMPLETED Date of service: Time of Service: 11:09 Follow Up Plan: Urine cultures came back mixed stefania, patient has history of bilateral ureteral stents, no urinary symptoms currently was able to speak with his ; patient was also given a one-time dose of fosfomycin in department at visit most recently. Family has had issues filling Paxlovid prescription due to decreased supply in the area, I was able to call in a prescription to [facility] in [place]. Home care instructions and return precautions given to family. Date of service: 08/25/23 Time of Service: 09:13 Follow Up Plan: This patient's urine culture finalized on my shift. He had gram-negative mixed stefania and Gram positive mixed stefania. No pathological species isolated. Patient was given fosfomycin. He was also found to have COVID. Will continue to monitor as an outpatient. /vivian/ JENIFER SHANE LPN Signed: 08/26/2023 09:30 JENIFER SHANE [facility]
--- OUTSIDE RECORDS SUMMARY | 2024-05-24 19:18 | XMS_ITS | Encounter Summary ---
Author Name [place] Address [address] [place] [address] Care Team Providers Care Environmental Engineer Scientist Name Role Phone RON KYRA Primary Care [...] Ervin's Name Patient's Relationship to Policy Ervin [facility] (WNR) MEDICARE ADVANTAGE [facility](W NR) * Aug 23, 2023 [id number] ANNALISA LOYD ITE PATIENT [facility] MCR (WNR) MEDICARE ADVANTAGE MCR (WNR) Aug 23, 2020 [id number] [phone] ANNALISA LOYD ITE PATIENT [facility] MCR (WNR) MEDICARE ADVANTAGE [facility](W NR) Aug 23, 2012 [id number] ANNALISA LOYD ITE PATIENT Selected Encounter This section includes the information on record at [place] for the Encounter. Date/Time Encounter Type Encounter Description Reason Pro vider Source Aug 22, 2023 11:30 AM Outpatient Encounter COMMUNITY CARE CONSULT IHE Encounter Template Text not used by VA Plan of Treatment: Future Appointments (+ 6 months) and Future Tests (+/- 45 days) The Plan of Treatment section includes future care activities for the patient from all [place] treatmentfaour community hospitalities. This section includes future appointments and future [...] 01:00 PM AMBULATORY - [place] [facility] Oct 18, 2023 08:00 AM AMBULATORY - NONE [place] [facility] Nov 04, 2023 09:00 AM AM[place]ORY [place] [facility] Nov 04, 2023 09:30 AM AMBUL[facility]ORY - [place] [facility] Nov 29, 2023 11:30 AM AMBULATORY - NONE [facility] Dec 10, 2023 02:00 PM AM[facility]UL[facility]ORY - [place] [facility] Dec 13, 2023 02:30 PM AMBULATORY - MEDICINE [facility] Dec 13, 2023 02:31 PM AMBULATORY - NONE [place] [facility] Dec 16, 2023 08:00 AM AM[place]UL[facility]ORY - [place] [facility] Dec 21, 2023 01:30 PM AMBULATORY - SURG[place] [facility] Social History: Smoking Status (Most current) [...] 02:27 PM CURRENT SMOKER [place] [facility] Tobacco Use History This section includes a history of the smoking, or tobacco-related health factors, that were collected on or before the date of the Encounter. The data comes from the [place] facility where the Encounter took place. Date/Time Smoking Status/Tobacco Use Comment F acility Jul 01, 2021 08:55 PM VA-VAAES TOBACCO U SE CURRENT NRT DECLINE [place] [facility] Jul 01, 2021 02:41 PM CURRENT SMOKER REINIER Bhatia [facility] Dec 08, 2020 08:45 PM VA-TOBACCO [...] ALL of a patient's completed or amended [place] Advance and Rescinded Directives. The entries below indicate that a directive exists for the patient, but an actual copy is not included with this document. The data comes from all [place] facilities. Date Advance Directives Provider Source Nov 18, 2017 ADVANCE DIRECTIVE RADHA FERNANDEZ [facility] Jul 08, 2017 ADVANCE DIRECTIVE DISCUSSION PURNIMA ROJAS [facility] Radiology Reports: +/- 30 days [...] COPIES FO R OUTSIDE REFERRAL: GALINA LOYD [id number] -1945 M Exm Date: SEP 10, 2023@15:25 Req Phys: TODD SANTAMARIA Loc: [facility] RAD MISC XRAY B1RC (Req'g Img Loc: XRAY (OOS) Service: Unknown (Case [id number] COMPLETE) UNLISTED COPIES FOR OUTSIDE REFER(RAD Detailed) CPT:39957 Reason for Study: UNLISTED COPIES FOR OUTSIDE REFERRAL Clinical History: UNLISTED COPIES FOR OUTSIDE REFERRAL. [place] [facility] [place]BD/PEL IMAGES FROM 2022. SENT BY UPS [place] [facility] [place] #[id number] [phone] Report Status: Electronically Filed Date Reported: Report: Copies (CD) made for outside facility. Impression: Copies (CD) made for outside facility Primary Diagnostic Code: VERIFIED BY: / *ELECTRONICALLY FILED* SONYA NALINI KATHRIN [facility] Aug 04, 2023 12:45 PM UNLISTED COPIES FO R OUTSIDE REFERRAL: GALINA LOYD [id number] -1945 M Exm Date: AUG 04, 2023@12:45 Req Phys: TODD SANTAMARIA Pat Loc: [facility] RAD MISC XRAY B1RC (Req'g Img Loc: XRAY (OOS) Service: Unknown (Case [id number] COMPLETE) UNLISTED COPIES FOR OUTSIDE REFER(RAD Detailed) CPT:29422 Reason for Study: UNLISTED COPIES FOR OUTSIDE REFERRAL Clinical History: UNLISTED COPIES FOR OUTSIDE REFERRAL. REQUESTED BY [facility] JOHNSON [id number], [id number], [id number]. PICKED UP BY SAAD 08/04/23 Report Status: Electronically Filed Date Reported: Report: Copies (CD) made for outside facility. Impression: Copies (CD) made for outside facility Primary Diagnostic Code: VERIFIED BY: / *ELECTRONICALLY FILED* SONYA GAYLE [facility] Encounter Notes: All associated encounter notes This section contains the clinical notes associated to the Encounter. Date/Time Encounter Note(s) Provider Source Aug 22, 2023 11:30 AM NONVA NOTE: LOCAL TITLE: COMMUNITY CARE-RAFAEL SELF PRESENTING CARE COORD PLAN STANDARD TITLE: NONVA NOTE DATE OF NOTE: AUG 22, 2023@11:30 ENTRY DATE: AUG 24, 2023@11:31:07 AUTHOR: LOCKHART,PILAR K EXP COSIGNER: URGENCY: STATUS: COMPLETED COMMUNITY CARE-RAFAEL SELF PRESENTING CARE COORD PLAN NOTE Has ADDENDA Emergency Notification Intake Date Presenting to the Facility: Jul Method of Contact: Notified from ECR worklist Notification ID: [id number] HSRM Referral #: [facility] Name: Hospital: [facility] Address: City: [place] [facility] State: [place] Zip Code: [address] Phone : [facility] Facility Point of Contact: Name: Phone: Chief complaint: COVID Primary Diagnosis: Disposition Unknown at time of intake note entry PACT aware of ED visit and coordinating next steps. /es/ PILAR TOBAR, RN EMERGENCY DOPE MAINTENANCE WORKER Signed: 08/24/2023 11:33 08/31/2023 ADDENDUM STATUS: COMPLETED Notification ID # [id number] EOC approved under 1703 by the National ER Notification Team [employer] Referral # [id number] /vivian/ ADITI SANCHEZ Signed: 08/31/2023 11:55 PILAR LOCKHART [facility]
--- OUTSIDE RECORDS SUMMARY | 2024-05-24 19:18 | XMS_ITS | Encounter Summary ---
Author Name Department [place] Organization [place] Address [address] [place] [address] Care Team Providers Care Evp Business Development Name Role Phone RON KYRA Primary Care [...] Relationship to Policy Ervin [facility] (WNR) MEDICARE ADVANTAGE [facility](W NR) * Aug 23, 2023 [id number] ANNALISA LOYD ITE PATIENT [facility] MCR (WNR) MEDICARE ADVANTAGE [facility] (WNR) Aug 23, 2020 [id number] [phone] ANNALISA LOYD ITE PATIENT [facility] MCR (WNR) MEDICARE ADVANTAGE [facility](W NR) Aug 23, 2012 [id number] ANNALISA LOYD ITE PATIENT Selected Encounter This section includes the information on record at [place] for the Encounter. Date/Time Encounter Type Encounter Description Reason Pro vider Source Sep 06, 2023 02:16 PM Outpatient Encounter COMMUNITY CARE CONSULT IHE Encounter Template Text not used by VA Plan of Treatment: Future Appointments (+ 6 months) and Future Tests (+/- 45 days) The Plan of Treatment section includes future care activities for the patient from all [place] treatmentfacilities. This section includes future appointments and future orders which are active, pending or scheduled. Future Appointments This section includes appointments that were scheduled to occur 6 months from the date of the Encounter, up to a maximum of 20 appointments. The data comes from all [place] treatment facilities. Appointment Date/Time Appointment Type Appointme nt Facility Name Sep 15, 2023 01:00 PM [place]ORY [place] [facility] Oct 18, 2023 08:00 AM AMBULATORY - NONE [place] [facility] Nov 04, 2023 09:00 AM [place] [facility] Nov 04, 2023 09:30 AM [place] - [place] [facility] Nov 29, 2023 11:30 AM AMBULATORY - NONE [facility] Dec 10, 2023 02:00 PM [facility] - [place] [facility] Dec 13, 2023 02:30 PM AMBULATORY - MEDICINE [facility] Dec 13, 2023 02:31 PM AMBULATORY - NONE [place] [facility] Dec 16, 2023 08:00 AM AM[place] - [place] [facility] Dec 21, 2023 01:30 PM [place]ORY - [place] [facility] Feb 21, 2024 10:15 AM AMBULATORY - NONE [place] [facility] Feb 21, 2024 11:00 AM AMBULATORY - NONE [place] [facility] Social History: Smoking Status (Most current) and Tobacco Use (All prior to encounter date) This section includes the most current, and the historical, smoking and tobacco- related health factors from the [place] facility where the Encounter took place. Current Smoking Status This section includes the most current smoking, or tobacco-related health factor, from the [place] facility where the Encounter took place. Date/Time Current Smoking Status Melissa schaeffer Jul 17, 2021 02:27 PM CURRENT SMOKER REINIER GAYLE [facility] Tobacco Use History This section includes a history of the smoking, or tobacco-related health factors, that were collected on or before the date of the Encounter. The data comes from the [place] facility where the Encounter took place. Date/Time [...] ALL of a patient's completed or amended [place] Advance and Rescinded Directives. The entries below indicate that a directive exists for the patient, but an actual copy is not included with this document. The data comes from all [place] facilities. Date Advance Directives Provider Source Nov 18, 2017 ADVANCE DIRECTIVE RADHA FERNANDEZ [facility] Jul 08, 2017 ADVANCE DIRECTIVE DISCUSSION PURNIMA ROJAS [facility] Radiology Reports: +/- 30 days [...] the Encounter. The data comes from all [place] treatment facilities. Date/Time Radiology Report Provider Source Sep 10, 2023 03:25 PM UNLISTED COPIES FO R OUTSIDE REFERRAL: GALINA LOYD [id number] -1945 M Exm Date: SEP 10, 2023@15:25 Req Phys: TODD SANTAMARIA Pat Loc: [facility] RAD MISC XRAY B1RC (Req'g Img Loc: XRAY (OOS) Service: Unknown (Case [id number] COMPLETE) UNLISTED COPIES FOR OUTSIDE REFER(RAD Detailed) CPT:76907 Reason for Study: UNLISTED COPIES FOR OUTSIDE REFERRAL Clinical History: UNLISTED COPIES FOR OUTSIDE REFERRAL. [place] [facility] [place]L [place] FROM 20[place]. SENT BY [place] [facility] [id number] [phone] Report Status: Electronically Filed Date Reported: Report: Copies (CD) made for outside facility. Impression: Copies (CD) made for outside facility Primary Diagnostic Code: VERIFIED BY: / *ELECTRONICALLY FILED* SONYA PINON [facility] Encounter Notes: All associated encounter notes This section contains the clinical notes associated to the Encounter. Date/Time Encounter Note(s) Provider Source Sep 06, 2023 02:16 PM NONVA CONSULT: LOCAL TITLE: COMMUNITY CARE CONSULT RESULT NOTE STANDARD TITLE: NONVA CONSULT DATE OF NOTE: SEP 06, 2023@14:16 ENTRY DATE: SEP 09, 2023@14:17:24 AUTHOR: NICOLE CASTELLON EXP COSIGNER: URGENCY: STATUS: COMPLETED VistA Imaging - Scanned Document COMMUNITY CARE-UROLOGY DOS: 09/06/2023 OFFICE VISIT-NEPHROLITHIASIS NOTE [facility] /vivian/ NICOLE CASTELLON INSTALLMENT LOAN COLLECTOR Signed: 09/09/2023 14:18 Receipt Acknowledged By: 09/10/2023 13:42 /vivian/ Pb OSORIO MD Staff Surgeon, Urology NICOLE CASTELLON [facility]
--- OUTSIDE RECORDS SUMMARY | 2024-05-24 19:18 | XMS_ITS | Encounter Summary ---
Author Name Department [place] Organization [place] Address [address] [place] [address] Care Team Providers Care Rice Farmworker Name Role Phone KYRA VELASQUEZ Primary Care [...] Policy Ervin [facility] (WNR) MEDICARE [facility](W NR) * Aug 23, 2023 [id number] [phone] ANNALISA LOYD ITE PATIENT [facility] (WNR) MEDICARE ADVANTAGE [employer] (WNR) Aug 23, 2020 [id number] 03 [phone] ANNALISA LOYD ITE PATIENT [facility] (WNR) MEDICARE [facility](W NR) Aug 23, 2012 [id number] [phone] ANNALISA LOYD ITE PATIENT Selected Encounter This section includes the information on record at [place] for the Encounter. Date/Time Encounter Type Encounter Description Reason Provider Source Sep 15, 2023 01:00 PM OFFICE O/P EST HI 40 MIN UROLOGY CLINIC ICD-10-CM N20.0 Calculus of kidney CORBY OSORIO IHE Encounter Template Text not used by VA Assessments - Encounter Diagnoses This section includes the primary and secondary diagnoses documented for the Encounter. Date/Time Primary/Secondary Diagnosis Diagnosis Name Provider Source Sep 15, 2023 01:40 PM PRIMARY Calculus of kidney AYOFOOT,CORBY QUIÑONES [facility] Plan of Treatment: Future Appointments (+ 6 months) and Future Tests (+/- 45 days) The Plan of Treatment section includes future care activities for the patient from all [place] treatmentfacilities. This section includes future appointments and future orders which are active, pending or scheduled. Future Appointments This section includes appointments that were scheduled to occur 6 months from the date of the Encounter, up to a maximum of 20 appointments. The data comes from all [place] treatment facilities. Appointment Date/Time Appointment Type Appointme nt Facility Name Oct 18, 2023 08:00 AM AMBULATORY - NONE [place] [facility] Nov 04, 2023 09:00 AM [place] [facility] Nov 04, 2023 09:30 AM [place] [facility] Nov 29, 2023 11:30 AM AMBULATORY - NONE [facility] Dec 10, 2023 02:00 PM [place] [facility] Dec 13, 2023 02:30 PM AMBULATORY - MEDICINE [facility] Dec 13, 2023 02:31 PM AM[place]ULATORY - NONE [place] [facility] Dec 16, 2023 08:00 AM [place] [facility] Dec 21, 2023 01:30 PM [place] [facility] Feb 21, 2024 10:15 AM AM[place]ULATORY - NONE [place] [facility] Feb 21, 2024 11:00 AM AMBULATORY - NONE [place] [facility] Social History: Smoking Status (Most current) and Tobacco Use (All prior to encounter date) This section includes the most current, and the historical, smoking and tobacco- related health factors from the [place] facility where the Encounter took place. Current Smoking Status This section includes the most current smoking, or tobacco-related health factor, from the [place] facility where the Encounter took place. Date/Time Current Smoking Status Comment Facil ity May 14, 2022 09:30 AM VA-TOBACCO USER EVERY DAY [facility] Tobacco Use History This section includes a history of the smoking, or tobacco-related health factors, that were collected on or before the date of the Encounter. The data comes from the [place] facility where the Encounter took place. Date/Time Smoking Status/Tobacco Use Comment F acility May 14, 2022 09:30 AM VA-TOBACCO USE ADVICE [facility] May 14, 2022 09:30 AM VA-TOBACCO USE SECONDARY EDUCATION PROFESSOR NO [facility] May 14, 2022 09:30 AM VA-TOBACCO USE MED NO [facility] May 14, 2022 09:30 AM VA-TOBACCO USE WI 30 MIN OF WAKE UP [facility] May 14, 2022 09:30 AM VA-TOBACCO USER EVERY DAY [facility] Jun 27, 2020 09:30 AM VA-TOBACCO FORMER USER [facility] Jun 27, 2020 09:30 AM VA-TOBACCO QUIT < 1 YEAR [facility] December 28, 2018 11:23 AM VA-TOBACCO USE 30 YEARS OR MORE [facility] December 28, 2018 11:23 AM VA-TOBACCO USE ADVICE [facility] December 28, 2018 11:23 AM VA-TOBACCO USE SECONDARY EDUCATION PROFESSOR NO [facility] December 28, 2018 11:23 AM VA-TOBACCO USE MED NO [facility] December 28, 2018 11:23 AM VA-TOBACCO USE WI 30 MIN OF WAKE UP [facility] December 28, 2018 11:23 AM VA-TOBACCO USER EVERY DAY [facility] Aug 10, 2016 09:05 AM CURRENT SMOKER [facility] Aug 10, 2016 09:05 AM V1-PT NOT INTEREST ED IN QUIT TOBACCO USE [facility] Advance Directives: All historical and current Section Date Range: From patient's date of to the date document was created. This section includes ALL of a patient's completed or amended [place] Advance and Rescinded Directives. The entries below indicate that a directive exists for the patient, but an actual copy is not included with this document. The data comes from all [place] facilities. Date Advance Directives Provider Source Nov 18, 2017 ADVANCE DIRECTIVE RADHA FERNANDEZ [facility] Jul 08, 2017 ADVANCE DIRECTIVE DISCUSSION [...] the Encounter. The data comes from all [place] treatment facilities. Date/Time Radiology Report Provider Source Sep 10, 2023 03:25 PM UNLISTED COPIES FO R OUTSIDE REFERRAL: GALINA LOYD [id number] -1945 M Exm Date: SEP 10, 2023@15:25 Req Phys: TODD SANTAMARIA Loc: [facility] RAD MISC XRAY B1RC (Req'g Img Loc: XRAY (OOS) Service: Unknown (Case [id number] COMPLETE) UNLISTED COPIES FOR OUTSIDE REFER(RAD Detailed) CPT:73865 Reason for Study: UNLISTED COPIES FOR OUTSIDE REFERRAL Clinical History: UNLISTED COPIES FOR OUTSIDE REFERRAL. REQUESTED BY [facility] [place]. ALL ABD/PEL IMAGES FROM 2022. SENT BY [facility] TO [facility] [place] TRACKING #[id number] [phone] Report Status: Electronically Filed Date Reported: Report: Copies (CD) made for outside facility. Impression: Copies (CD) made for outside facility Primary Diagnostic Code: VERIFIED BY: / *ELECTRONICALLY FILED* SONYA GAYLE [facility] Encounter Notes: All associated encounter notes This section contains the clinical notes associated to the Encounter. 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), nephrolithiasis, LUTS/increased PVR on 0.8mg [...] with surgery. SECOND and THIRD stage (both Kercatherine/Micah) - 12.28.2022 He then underwent second stage [...] stent exchange - 8Fr x26cm TODAY, they report that on Aug 05 2023 he underwent a bilateral URS, left LL (right ureter too tight to get scope up), and bilat Tria stents placed. The current plan is for him to undergo a right PCNL on Oct 21 2023. All fragments > 1mm were removed on his left so no intervention (besides a stent change) is planned for this side. He is doing well today with no pain, hematuria, flank pain or UTIs. ---- Bosniak 2F (?) cyst - CT scan w contrast Stable [...] Injury due to chemical exposure (SNOMED CT [id number]) PSH: 04/29/2023 BILATERAL URETEROSCOPY, ..., STENT (COMPLETED) [...] MOUTH EVERY EVENING TO LOWER CHOLESTEROL 2) DRESS,MEPILEX BORDER FLEX 4X4IN #415896 APPLY ONE ACTIVE DRESSING TOPICALLY TWO TIMES PER WEEK APPLY DIRECTED 3) DRESSING,HONEY TOP GEL APPLY SMALL AMOUNT TOPICALLY ACTIVE TWO TIMES PER WEEK 4) DRESSING,MEPILEX BORDR 8.7X9.8IN #[id number] APPLY ONE ACTIVE DRESSING TOPICALLY DIRECTED 5) LACOSAMIDE 50MG TAB TAKE FOUR TABLETS BY MOUTH TWICE ACTIVE (S) A DAY MAY TAKE AN EXTRA TWO TABLETS IF ANY UTI,FEVER, OR ANY SURGICAL PROCEDURE 6) LACTOBACILLUS COMBO TAB TAKE ONE TABLET BY MOUTH ONCE ACTIVE DAILY FOR GI 7) MELATONIN 3MG CAP/TAB TAKE ONE CAP/TAB BY MOUTH AT ACTIVE BEDTIME NEEDED FOR SLEEP 8) POTASSIUM CHLORIDE 10MEQ SA TAB TAKE ONE [...] ecchymosis Genitourinary -- no CVAT LABS: PSA (SKILLED NURSING PROFESSIONAL) 06/16/23 13:20 0.13 ++ raquel ++ 12/08/22 12:01 0.14 06/03/21 12:07 0.53 11/29/20 12:29 0.86 11/03/19 [...] ASSESS / PLAN: (1) Renal stones!! - Patient to undergo right PCNL on Oct [address] French (2) Bosniak 2F cyst - no signif change from [id number]. Bosniak 2F status was determine via US [...] if this lesion changes over time. 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 (4) LUTS on flomax 0.8mg - continue flomax RTC in 6mo Total time spent today in record review, visit, orders & chartin min /vivian/ Pb OSORIO MD Staff Surgeon, Urology Signed: 09/15/2023 13:[address] [facility]
--- OUTSIDE RECORDS SUMMARY | 2024-05-24 19:18 | XMS_ITS | Encounter Summary ---
Author Name [facility] Organization [facility] [place] Address [address] [place] [address] Care Team Providers Care Industrial Services Worker Name Role Phone KYRA VELASQUEZ Primary [...] [facility] ([facility]) MEDICARE [facility](W NR) * Aug 23, 2023 [id number] ANNALISA LOYD ITE PATIENT [facility] (WNR) MEDICARE ADVANTAGE [facility] (WNR) Aug 23, 2020 [id number] [phone] ANNALISA LOYD ITE PATIENT [facility] (WNR) MEDICARE [facility](W NR) Aug 23, 2012 [id number] ANNALISA LOYD ITE PATIENT Selected Encounter This section includes the information on record at [place] for the Encounter. Date/Time Encounter Type Encounter Description Reason Provider Source Nov 04, 2023 09:30 AM OFFICE O/P EST LOW 20 MIN VASCULAR SURGERY ICD-10-CM I71.40 Abdominal aortic aneurysm, without rupture, unspecified STONENATY IHJannette Encounter Template Text not used by [place] Assessments - Encounter Diagnoses This section includes the primary and secondary diagnoses documented for the Encounter. Date/Time Primary/Secondary Diagnosis Diagnosis Name Provider Source Nov 04, 2023 10:07 AM PRIMARY Abdominal aortic aneurysm, without rupture, unspecified STONENATY [facility] Plan of Treatment: Future Appointments (+ 6 months) and Future Tests (+/- 45 days) The Plan of Treatment section includes future care activities for the patient from all [place] treatmentfacommunity healthities. This section includes future appointments and future [...] PM AMBULATORY - [place]GERY [place] [facility] Dec 13, 2023 02:30 PM AMBULATORY - MEDICINE [facility] Dec 13, 2023 02:31 PM AMBULATORY - NONE [place] [facility] Dec 16, 2023 08:00 AM AMBULATORY - SURGERY [place] [facility] Dec 21, 2023 01:30 PM AMBULATORY - SURGERY [place] [facility] Feb 21, 2024 10:15 AM AMBULATORY - NONE [place] [facility] Feb 21, 2024 11:00 AM AMBULATORY - NONE [place] [facility] Mar 18, 2024 12:01 AM AMBULATORY - NONE [place] [facility] Apr 06, 2024 01:00 PM AMBULATORY - NONE [place] [facility] Apr 06, 2024 01:00 PM AMBULATORY - MEDICINE [facility] Apr 10, 2024 01:30 PM AMBULATORY - MEDICINE [facility] Apr 10, 2024 01:31 PM AMBULATORY - NONE [place] [facility] Apr 11, 2024 10:00 AM AMBULATORY - SURGERY [facility] Apr 11, 2024 10:01 AM AMBULATORY [place]GERY [place] [facility] Apr 21, 2024 10:30 AM AMBULATORY - NONE [place] [facility] May 03, 2024 02:30 PM AMBULATORY - SURGERY [facility] May 04, 2024 10:30 AM AMBULATORY - [place]IC[place] [facility] May 04, 2024 11:00 AM AMBULATORY - SURGERY [facility] May 04, 2024 12:30 PM AMBULATORY - NONE [place] [facility] Lab Results: +/- 30 days of [...] Range Comment Nov 29, 2023 11:27 AM [facility] URINALYSIS W/REFLEX TO CULTURE Specimen Type: URINE No comment entered. Ordering Provider: MIRIAN OSORIO CH Report Released Date/Time: Nov 24, 2023 05:48 PM Reporting Lab: [facility] [address] [facility] [address] Performing Lab: [facility] [address] [facility] [address] URINE COLOR Light[place] NOT DEFINED SPECIFIC GRAVITY 1.013 1.003-1.030 UROBILINOGEN [...] Completed WHITE BLOOD CELL CLUMP MANY NONE Vital Signs: All taken on the encounter date This section contains inpatient and outpatient Vital Signs collected on the date of the Encounter. Date/Time Temperature Pulse Blood Pressure Respiratory Rate SP02 Pain Height Weight Body Mass Index Source Nov 04, 2023 09:21 AM 96.8 56 105/64 17 98 2 [facility] Social History: Smoking Status (Most current) [...] 2021 02:27 PM CURRENT SMOKER REINIER GAYLE [facility] Tobacco Use History This section includes a history of the smoking, or tobacco-related health factors, that were collected on or before the date of the Encounter. The data comes from the [place] facility where the Encounter took place. Date/Time Smoking Status/Tobacco Use Comment F acility Jul 01, 2021 08:55 PM VA-VAAES TOBACCO U SE CURRENT NRT DECLINE [facility] Jul 01, 2021 02:41 PM CURRENT SMOKER REINIER Bhatia [facility] Dec 08, 2020 08:45 PM VA-TOBACCO USER EVERY DAY [facility] Dec 08, 2020 08:45 PM VA-VAAES TOBACCO U SE CURRENT NRT DECLINE [facility] Dec 08, 2020 06:58 PM VA-TOBACCO FORMER USER [facility] Apr 04, 2015 03:47 PM CURRENT SMOKER Less than a pack a day [facility] Apr 04, 2015 03:47 PM V1-PT NOT INTEREST ED IN QUIT TOBACCO USE [facility] Advance Directives: All historical and current [...] Nov 18, 2017 ADVANCE DIRECTIVE RADHA FERNANDEZ [facility] Jul 08, 2017 ADVANCE DIRECTIVE DISCUSSION PURNIMA ROJAS [facility] Radiology Reports: +/- 30 days of [...] & PELVIS WI THOUT CONTRAST: GALINA LOYD [id number] -1945 M Exm Date: OCT 22, 2023@04:45 Req Phys: TODD SANTAMARIA Pat Loc: OUTSIDE [facility] SCAN (Req'g Loc Img Loc: OUTSIDE [facility] CT SCAN Service: Unknown (Case [id number] COMPLETE) CT ABD & PELVIS WITHOUT CONTRAST (CT Detailed) CPT:30653 Reason for Study: Exam imported from outside Clinical History: Original Data for Imported Study Patient Name: GALINA LOYD Date: 1945 Sex: M Study Date: 10/22/23 Study Time: 04:45:59 Study Description: CT ABDOMEN AND PELVIS WO CONTRAST Referring Physician: JONN GUSTAFSON JR Series 1: 1 CT file, description: Rip Tailer LAT Series 2: 1 CT file, description: Rip Tailer AP Series 3: 1 CT file, description: Patient Protocol Series 4: 156 CT files, description: STD WO F_0.6 Series 5: 778 CT files, description: STD THN WO F_0.6 Series 6: 88 CT files, description: COR 3 WO F_0.6 Series 7: 115 CT files, description: SAG 3 WO F_0.6 Series 8: 2 RI files, description: [id number] Series 9: 1 KO file, description: [id number] Report Status: Electronically Filed Date Reported: NOV 26, 2023 Report: RADIOLOGY PROCEDURE: N O T I C E: SCANNED IN EXAM THIS EXAMINATION WAS PERFORMED AND INTERPRETED AT A NON-[place] FACILITY. To view the Images or report (if a report was included with the images), select the [facility] Tools Menu and choose the Image Display (Viewer) option. Impression: RADIOLOGY PROCEDURE: N O T I C E: SCANNED IN EXAM THIS EXAMINATION WAS PERFORMED AND INTERPRETED AT A NON-[place] FACILITY. To view the Images or report (if a report was included with the images), select the [employer] Tools Menu and choose the Image Display (Viewer) option. VERIFIED BY: / *ELECTRONICALLY FILED* SONYA [facility] Pathology Reports: +/- 30 days of the [...] comes from all [place] treatment facilities. Date/Time Pathology Report Provider Source Nov 29, 2023 11:27 AM LR MICROBIOLOGY RE PORT: Reporting Lab: SONYA PINON [facility] [CLIA# [id number]] [address] [place] [address] Accession [UID]: [id number] [[id number]] Received: Nov 30, 2023@19:53 Collection sample: URINE CLEAN CATCH Collection date: Nov 29, 2023 11:27 Site/Specimen: URINE Provider: CORBY OSORIO Test(s) ordered: CULTURE,URINE CLEAN CATCH..... completed: Dec 02, 2023 13:00 * BACTERIOLOGY FINAL REPORT => Dec 02, 2023 13:01 TECH CODE: [id number] Bacteriology Remark(s): 12/02/23 50,000-99,000 CFU/mL AT LEAST THREE BACTERIAL TYPES PRESENT INDICATING POSSIBLE CONTAMINATION, PLEASE REPEAT COLLECTION. =--=--=--=--=--=--=--=--=--=--= --=--=--=--=--=--=--=--=--=--=- -=--=--=--=--=-- Performing Laboratory: Bacteriology Report Performed By: SONYA PINON [facility] [CLIA# [id number]] [address] [place] [address] [facility] Encounter Notes: All associated encounter notes This section contains the clinical notes associated to the Encounter. Date/Time Encounter Note(s) Provider Source Nov 04, 2023 08:47 AM SURGERY OUTPATIENT NOTE: LOCAL TITLE: Surgery/Outpatient Note STANDARD TITLE: SURGERY OUTPATIENT NOTE DATE OF NOTE: NOV 04, 2023@08:47 ENTRY DATE: NOV 04, 2023@08:48:40 AUTHOR: JOIE MURRY EXP COSIGNER: NATY OLIVER URGENCY: STATUS: COMPLETED Surgery/Outpatient Note Has ADDENDA S: HPI: 77 year old frail smoker non diabetic with history of stroke and post stroke seizures (none recent) non-hodgkin lymphoma, presenting for followup of his small asympatomatic AAA. He has been taking daily aspirin and statin. He actively smokes and reports he is up to 25 cigarettes per day. He has not tried any smoking cessation techniques, though hopes to see his new PCP in the coming months and may consider smoking cessation with them. He has not noted any other changes since his last visit, denies abdominal pain, back pain, pulsating sensation in abdomen. ROS: Pertinent positives/negatives noted in HPI Active problems - Computerized Problem List is the source for the followin. Delirium 2. Depression 3. Bradycardia 4. Non-traumatic subdural haemorrhage 5. AAA - Abdominal aortic aneurysm 6. Thoracic aortic aneurysm without rupture 7. Follicular non-Hodgkin lymphoma, small cleaved cell 8. Tobacco dependence 9. Alcohol dependence 10. Hypertension 11. Family history of prostate cancer 12. Family history of malignant neoplasm of breast 13. Injury due to chemical exposure (SNOMED CT [id number]) P.E. Gen: Thin frail male with tobacco stained digits. Pleasant, conversant, in no acute distress Cards: RRR, no m/r/g Abd: Soft, nontender, nondistended. No pulsatile mass noted that would be consistent with his known AAA Ext: Well perfused Studies: Non-contrast CT scan (05/06/23) demonstrates 4.2 cm AAA. AAA Duplex study (11/04/23) shows 5.5 cm AAA. A/P: 77M with a known small asymptomatic AAA here for follow up and duplex study. His duplex study demonstrates the AAA has grown to 5.5cm. We continued to encourage daily aspirin and statin use. He is still smoking and we continued to discuss smoking cessation, however he has not taken any steps towards this yet. We recommended he follow up with his new PCP to further discussion smoking cessation strategies. He will return for follow up in 6 months with CTA AP for monitoring of his AAA. [id number] Greater than 50% of this session was dedicated to counseling and coordination of care. Yes Time spent with patient (minutes): 30 Summary of Counseling and/or Coordination of Care: Follow up of small asymptomatic AAA, duplex done today, smoking cessation discussion /vivian/ JOIE MURRY Ophthalmology Resident Signed: 11/04/2023 09:44 /vivian/ NATY Gifford MD Cosigned: 11/04/2023 10:07 11/04/2023 ADDENDUM STATUS: COMPLETED Patient seen and examined with PGY-1. His AAA is 5-5.1cm by duplex today NOT 5.5 as indicated above. Accordingly will plan for surveillance in 6 months with dedicated CTA abd/pelvis. Smoking cessation recommended. /vivian/ NATY Gifford MD Signed: 11/04/2023 10:07 JOIE MURRY [facility]
--- OUTSIDE RECORDS SUMMARY | 2024-05-24 19:18 | XMS_ITS | Encounter Summary ---
Author Name [facility] [place] Address [address] [place] [address] Care Team Providers Care Drug Inspector Name Role Phone RON KYRA Primary Care [...] Ervin's Name Patient's Relationship to Policy Ervin [facility] (WNR) MEDICARE ADVANTAGE [facility](W NR) * Aug 23, 2023 [id number] [phone] ANNALISA LOYD ITE PATIENT [facility] MCR (WNR) MEDICARE ADVANTAGE MCR (WNR) Aug 23, 2020 [id number] [phone] ANNALISA LOYD ITE PATIENT [facility] MCR (WNR) MEDICARE ADVANTAGE [facility](W NR) Aug 23, 2012 [id number] ANNALISA LOYD ITE PATIENT Selected Encounter This section includes the information on record at [place] for the Encounter. Date/Time Encounter Type Encounter Description Reason Pro vider Source Oct 18, 2023 12:42 PM Outpatient Encounter COMMUNITY CARE CONSULT IHE Encounter Template Text not used by [facility] Plan of Treatment: Future Appointments (+ 6 months) and Future Tests (+/- 45 days) The Plan of Treatment section includes future care activities for the patient from all [place] [facility] This section includes future appointments and future orders which are active, pending or scheduled. Future Appointments This section includes appointments that were scheduled to occur 6 months from the date of the Encounter, up to a maximum of 20 appointments. The data comes from all [place] treatment facilities. Appointment Date/Time Appointment Type Appointme [...] [place] [facility] Feb 21, 2024 10:15 AM AMBULATORY - NONE [place] [facility] Feb 21, 2024 11:00 AM AMBULATORY - NONE [place] [facility] Mar 18, 2024 12:01 AM AMBULATORY - NONE [place] [facility] Apr 06, 2024 01:00 PM AMBULATORY - NONE [place] [facility] Apr 06, 2024 01:00 PM AMBULATORY - MEDICINE [facility] Apr 10, 2024 01:30 PM AMBULATORY - MEDICINE [facility] Apr 10, 2024 01:31 PM AMBULATORY - NONE [place] [facility] Apr 11, 2024 10:00 AM AMBULATORY - SURGERY [facility] Apr 11, 2024 10:01 AM [place] [facility] Social History: Smoking Status (Most current) and Tobacco Use (All prior to encounter date) This section includes the most current, and the historical, smoking and tobacco- related health factors from the [place] facility where the Encounter took place. Current Smoking Status This section includes the most current smoking, or tobacco-related health factor, from the [place] facility where the Encounter took place. Date/Time Current Smoking Status Comment Facil ity Jul 17, 2021 02:27 PM CURRENT SMOKER REINIER GAYLE [facility] Tobacco Use History This section includes a history of the smoking, or tobacco-related health factors, that were collected on or before the date of the Encounter. The data comes from the [place] facility where the Encounter took place. Date/Time Smoking Status/Tobacco Use Comment F acility Jul 01, 2021 08:55 PM VA-VAAES TOBACCO U SE CURRENT NRT DECLINE [facility] Jul 01, 2021 02:41 PM CURRENT SMOKER REINIER GAYLE [facility] Dec 08, 2020 08:45 PM VA-TOBACCO USER EVERY DAY [facility] Dec 08, 2020 08:45 PM VA-VAAES TOBACCO U SE CURRENT NRT DECLINE [facility] Dec 08, 2020 06:58 PM VA-TOBACCO FORMER USER [facility] Apr 04, 2015 03:47 PM CURRENT SMOKER Less than a pack a day [facility] Apr 04, 2015 03:47 PM V1-PT NOT INTEREST ED IN QUIT TOBACCO USE [facility] Advance Directives: All historical and current Section Date Range: From patient's date of to the date document was created. This section includes ALL of a patient's completed or amended [place] Advance and Rescinded Directives. The entries below indicate that a directive exists for the patient, but an actual copy is not included with this document. The data comes from all [facility]. Date Advance Directives Provider Source Nov 18, 2017 ADVANCE DIRECTIVE RADHA FERNANDEZ [facility] Jul 08, 2017 ADVANCE DIRECTIVE DISCUSSION PURNIMA ROJAS [facility] Radiology Reports: +/- 30 days of [...] the Encounter. The data comes from all [place] treatment facilities. Date/Time Radiology Report Provider Source Oct 22, 2023 04:[address] ABD & PELVIS WI THOUT CONTRAST: GALINA LOYD [id number] -1945 M Exm Date: OCT 22, 2023@04:45 Req Phys: TODD SANTAMARIA Jeimy Pat Loc: OUTSIDE [facility] SCAN (Req'g Loc Img Loc: OUTSIDE [facility] CT SCAN Service: Unknown (Case [id number] COMPLETE) CT ABD & PELVIS WITHOUT CONTRAST (CT Detailed) CPT:61556 Reason for Study: Exam imported from outside Clinical History: Original Data for Imported Study Patient Name: GALINA LOYD Date: 1945 Sex: M Study Date: 10/22/23 Study Time: 04:45:59 Study Description: CT ABDOMEN AND PELVIS WO CONTRAST Referring Physician: JONN GUSTAFSON JR Series 1: 1 CT file, description: Sales Marketing Director LAT Series 2: 1 CT file, description: Sales Marketing Director AP Series 3: 1 CT file, description: Patient Protocol Series 4: 156 CT files, description: STD WO F_0.6 Series 5: 778 CT files, description: STD THN WO F_0.6 Series 6: 88 CT files, description: COR 3 WO F_0.6 Series 7: 115 CT files, description: SAG 3 WO F_0.6 Series 8: 2 VA files, description: [id number] Series 9: 1 KO file, description: [id number] Report Status: Electronically Filed Date Reported: NOV 26, 2023 Report: RADIOLOGY PROCEDURE: N O T I C E: SCANNED IN EXAM THIS EXAMINATION WAS PERFORMED AND INTERPRETED AT A NON-[place] FACILITY. To view the Images or report (if a report was included with the images), select the [employer] Tools Menu and choose the Image Display (Viewer) option. Impression: RADIOLOGY PROCEDURE: N O T I C E: SCANNED IN EXAM THIS EXAMINATION WAS PERFORMED AND INTERPRETED AT A NON-[place] FACILITY. To view the Images or report (if a report was included with the images), select the [employer] Tools Menu and choose the Image Display (Viewer) option. VERIFIED BY: / *ELECTRONICALLY FILED* S[facility]YA [facility]LE [place] [facility] Encounter Notes: All associated encounter notes This section contains the clinical notes associated to the Encounter. Date/Time Encounter Note(s) Provider Source Oct 18, 2023 12:42 PM NONVA CONSULT: LOCAL TITLE: COMMUNITY CARE CONSULT RESULT NOTE STANDARD TITLE: NONVA CONSULT DATE OF NOTE: OCT 18, 2023@12:42 ENTRY DATE: NOV 06, 2023@12:43:06 AUTHOR: AGGIE JERONIMO EXP COSIGNER: URGENCY: STATUS: COMPLETED COMMUNITY CARE CONSULT RESULT NOTE Has ADDENDA VistA Imaging - Scanned Document COMMUNITY CARE-NEUROLOGY DATE OF SERVICE: 10/18/2023 OFFICE CLINIC NOTE PHYSICIAN-FOLLOW UP SEIZURE. [facility] // AGGIE JERONIMO Lead Signed: 11/06/2023 12:44 11/10/2023 ADDENDUM STATUS: COMPLETED Chief Complaint Pt comes today with his , Darrel, for seizure follow up. They can't remember when his last seizure was, but explaine it was a long time ago. History of Present Illness [id number] This very pleasant gentleman comes for follow-up evaluation of his focal epilepsy with his wonderful Maribel. His last seizure was on January 23, 2023. This was some minor seizure and had gone to [facility]. Prior to that he had a seizure after he had lithotripsy in November. The following day he had a seizure. But that previous night he had vomited. Usually has seizures whenever there is UTI or surgery. I have asked his to increase the dose of lacosamide anytime that this infection or if he is going to have surgery. He is planned to have a renal surgery to remove the stone on October 21, 2023 at [facility]. He is currently taking lacosamide 50 mg--4 tablets twice daily. I have told patient's to give him 5 tablets in the morning and 5 tablets in the evening that is 250 mg twice daily on the day of the surgery. She expressed understanding. The patient is complaining of some vision issues. His visual singh are full eye movements are intact. Will sit tight for now. We discussed repeating a CT scan but we mutually agreed to sit tight. I explained to them that I will be leaving the [facility] practice in August 2024. discussed with them the option of seeing Dr. Abram Jones or Meng Long APRN. They are comfortable with transferring the care to Meng Long. I reassured them that I will be available by phone and in discussions with Meng Long APRN. I expressed my thanks and gratitude to the patient and his for putting the trust in me in this practice for all these years. Review of Systems The patient has no additional neurologic, psychiatric, head, ears, eyes, nose, throat, pulmonary, cardiovascular, gastrointestinal, musculoskeletal, skin, endocrine, renal, immunological, allergic, lymphoid, rheumatologic and hematological symptoms other than those noted above Physical Exam Vitals & Measurements HR: 90 (Peripheral) BP: 100/65 HT: 70.5 cm WT: 117.6 kg BMI: 236.61 BSA: 1.52 He is pleasant awake alert oriented obese patient language normal. Visual singh full Eye movements intact. He walks with a cane. Assessment/Plan 1. Partial symptomatic epilepsy with complex partial seizures, not intractable, without status epilepticus G40.209 10/18/23 This very pleasant gentleman comes for follow-up evaluation of his focal epilepsy with his wonderful Maribel. His last seizure was on January 23, 2023. This was some minor seizure and had gone to [facility]. Prior to that he had a seizure after he had lithotripsy in November. The following day he had a seizure. But that previous night he had vomited. Usually has seizures whenever there is UTI or surgery. I have asked his to increase the dose of lacosamide anytime that this infection or if he is going to have surgery. He is planned to have a renal surgery to remove the stone on October 21, 2023 at [facility]. He is currently taking lacosamide 50 mg-4 tablets twice daily. I have told patient's to give him 5 tablets in the morning and 5 tablets in the evening that is 250 mg twice daily on the day of the surgery. She expressed understanding. The patient is complaining of some vision issues. His visual singh are full eye movements are intact. Will sit tight for now. We discussed repeating a CT scan but we mutually agreed to sit tight. I explained to them that I will be leaving the [facility] practice in August 2024. I discussed with them the option of seeing Dr. Abram Jones or Meng Long APRN. They are comfortable with transferring the care to Meng Long. I reassured them that I will be available by phone and in discussions with Meng Long APRN. Partial symptomatic epilepsy with complex partial seizures, not intractable, without status epilepticus G40.209 January PLAN: 10/18/23 This very pleasant gentleman comes for follow-up evaluation of his focal epilepsy with his wonderful Maribel. His last seizure was on January 23, 2023. This was some minor seizure and had gone to [facility]. Prior to that he had a seizure after he had lithotripsy in November. The following day he had a seizure. But that previous night he had vomited. Usually has seizures whenever there is UTI or surgery. I have asked his to increase the dose of lacosamide anytime that this infection or if he is going to have surgery. He is planned to have a renal surgery to remove the stone on October 21, 2023 at [facility]. He is currently taking lacosamide 50 mg-4 tablets twice daily. I have told patient's to give him 5 tablets in the morning and 5 tablets in the evening that is 250 mg twice daily on the day of the surgery. She expressed understanding. The patient is complaining of some vision issues. His visual singh are full eye movements are intact. Will sit tight for now. We discussed repeating a CT scan but we mutually agreed to sit tight. I explained to them that I will be leaving the [facility] practice in August 2024. I discussed with them the option of seeing Dr. Abram Jones or Meng Long APRN. They are comfortable with transferring the care to Meng Long. I reassured them that I will be available by phone and in discussions with Meng Long APRN. 2.Cerebral infarction involving middle cerebral artery 163.519 3.Dementia with behavioral disturbance F03.918 /es/ JENIFER SHANE LPN Signed: 11/10/2023 14:27 AGGIE JERONIMO [facility]
--- OUTSIDE RECORDS SUMMARY | 2024-05-24 19:18 | XMS_ITS ---
Author Name [facility] [place] Address [address] [place] [address] Care Team Providers Care Teacher Public Health Name Role Phone KYRA VELASQUEZ Primary Care [...] ADVANTAGE MCR(W NR) * Aug 23, 2023 [id number] [phone] ANNALISA CRAWLEY ITE PATIENT [facility] (WNR) MEDICARE ADVANTAGE [facility] (WNR) Aug 23, 2020 [id number] [phone] ANNALISA CRAWLEY ITE PATIENT [facility] (WNR) MEDICARE [facility](W NR) Aug 23, 2012 [id number] ANNALISA CRAWLEY ITE PATIENT Selected Encounter This section includes the information on record at [place] for the Encounter. Date/Time Encounter Type Encounter Description Reason Pro vider Source Aug 24, 2023 08:57 AM Outpatient Encounter ADMIN PAT ACTIVTIES (MASNONCT) IHE Encounter Template Text not used by [place] Plan of Treatment: Future Appointments (+ 6 months) and Future Tests (+/- 45 days) The Plan of Treatment section includes future care activities for the patient from all [place] treatmentfacilities. This section includes future appointments and future orders which are active, pending or scheduled. Future Appointments This section includes appointments that were scheduled to occur 6 months from the date of the Encounter, up to a maximum of 20 appointments. The data comes from all [place] treatment facilities. Appointment Date/Time Appointment Type Appointme nt Facility Name Sep 15, 2023 01:00 PM AMBULATORY - [place] [facility] Oct 18, 2023 08:00 AM AMBULATORY - NONE [place] [facility] Nov 04, 2023 09:00 AM AMBULATORY - [place] [facility] Nov 04, 2023 09:30 AM AMBULATORY - [place] [facility] Nov 29, 2023 11:30 AM AMBULATORY - NONE [facility] Dec 10, 2023 02:00 PM AMBULATORY - [place] [facility] Dec 13, 2023 02:30 PM AMBULATORY - MEDICINE [facility] Dec 13, 2023 02:31 PM AMBULATORY - NONE [place] [facility] Dec 16, 2023 08:00 AM AMBULATORY - [place] [facility] Dec 21, 2023 01:30 PM AMBULATORY - [place] [facility] Feb 21, 2024 10:15 AM AMBULATORY - NONE [place] [facility] Feb 21, 2024 11:00 AM AMBULATORY - NONE [place] [facility] Social History: Smoking Status (Most current) and Tobacco Use (All prior to encounter date) This section includes the most current, and the historical, smoking and tobacco- related health factors from the [place] facility where the Encounter took place. Current Smoking Status This section includes the most current smoking, or tobacco-related health factor, from the [place] facility where the Encounter took place. Date/Time Current Smoking Status Melissa schaeffer Jul 17, 2021 02:27 PM CURRENT SMOKER [place] [facility] Tobacco Use History This section includes a history of the smoking, or tobacco-related health factors, that were collected on or before the date of the Encounter. The data comes from the [place] facility where the Encounter took place. Date/Time Smoking Status/Tobacco Use Comment F acility Jul 01, 2021 08:55 PM VA-VAAES TOBACCO U SE CURRENT NRT DECLINE [facility] Jul 01, 2021 02:41 PM CURRENT SMOKER WHIT Jannette [facility] Dec 08, 2020 08:45 PM VA-TOBACCO USER EVERY DAY [facility] Dec 08, 2020 08:45 PM VA-VAAES TOBACCO U SE CURRENT NRT DECLINE [facility] Dec 08, 2020 06:58 PM VA-TOBACCO [...] ALL of a patient's completed or amended [place] Advance and Rescinded Directives. The entries below indicate that a directive exists for the patient, but an actual copy is not included with this document. The data comes from all [place] facilities. Date Advance Directives Provider Source Nov [...] the Encounter. The data comes from all [place] treatment facilities. Date/Time Radiology Report Provider Source Sep 10, 2023 03:25 PM UNLISTED COPIES FO R OUTSIDE REFERRAL: GALINA CRAWLEY [id number] -1945 M Exm Date: SEP 10, 2023@15:25 Req Phys: TODD SANTAMARIA Pat Loc: [facility] RAD MISC XRAY B1RC (Req'g Img Loc: XRAY (OOS) Service: Unknown (Case [id number] COMPLETE) UNLISTED COPIES FOR OUTSIDE REFER(RAD Detailed) CPT:86470 Reason for Study: UNLISTED COPIES FOR OUTSIDE REFERRAL Clinical History: UNLISTED COPIES FOR OUTSIDE REFERRAL. [place] [facility] ALL ABD/PEL IMAGES FROM 2022. SENT BY UPS TO [facility] [place] #[id number] [phone] Report Status: Electronically Filed Date Reported: Report: Copies (CD) made for outside facility. Impression: Copies (CD) made for outside facility Primary Diagnostic Code: VERIFIED BY: / *ELECTRONICALLY FILED* SONYA PINON [facility] Aug 04, 2023 12:45 PM UNLISTED COPIES FO R OUTSIDE REFERRAL: GALINA CRAWLEY [id number] -1945 M Exm Date: AUG 04, 2023@12:45 Req Phys: TODD SANTAMARIA Pat Loc: [facility] RAD MISC XRAY B1RC (Req'g Img Loc: XRAY (OOS) Service: Unknown (Case [id number] COMPLETE) UNLISTED COPIES FOR OUTSIDE REFER(RAD Detailed) CPT:83989 Reason for Study: UNLISTED COPIES FOR OUTSIDE REFERRAL Clinical History: UNLISTED COPIES FOR OUTSIDE REFERRAL. REQUESTED BY SAAD JOHNSON [id number], [id number], [id number]. PICKED UP BY SAAD 08/04/23 Report Status: Electronically Filed Date Reported: Report: Copies (CD) made for outside facility. Impression: Copies (CD) made for outside facility Primary Diagnostic Code: VERIFIED BY: / *ELECTRONICALLY FILED* SONYA PINON [facility] Encounter Notes: All associated encounter notes This section contains the clinical notes associated to the Encounter. Date/Time Encounter Note(s) Provider Source Aug 24, 2023 08:58 AM ADMINISTRATIVE NOT E: LOCAL TITLE: CCC: SCHEDULING ADMINISTRATION STANDARD TITLE: ADMINISTRATIVE NOTE DATE OF NOTE: AUG 24, 2023@08:58:03 ENTRY DATE: AUG 24, 2023@08:58:03 AUTHOR: MAYA VELASCO COSIGNER: URGENCY: STATUS: COMPLETED Patient Demographics Patient Name: GALINA CRAWLEY Patient Primary Phone: [phone] Patient Primary Address: [address] [place] [address] Patient : 1945 Patient Age: 77 Caller/Recipient Relation to Patient: Other If Other Describe Relation to Patient: spouse Caller Name: mrs crawley Administrative Administrative Note Reason: Outside Care Performed Administrative Note Comments: called to say they will get the paxlovid thru their local hosp and local pharmacy. No need for [facility] to assist. /vivian/ MAYA VELASCO VISAnne 1 [facility] Signed: 08/24/2023 08:58 Receipt Acknowledged By: 08/24/2023 08:59 /es/ JENIFER SHANE LPN 08/24/2023 16:46 /vivian/ MAYA ALEGRE RN [facility] [facility]
--- OUTSIDE RECORDS SUMMARY | 2024-05-24 19:19 | XMS_ITS | Encounter Summary ---
Author Name [facility] [place] Organization [facility] [place] Address [address] [place] [address] Care Team Providers Care Rest Room Attendant Name Role Phone KYRA VELASQUEZ Primary Care [...] Ervin's Name Patient's Relationship to Policy Ervin [facility] (WNR) MEDICARE ADVANTAGE MCR(W NR) * Aug 23, 2023 [id number] ANNALISA LOYD ITE PATIENT [facility] (WNR) MEDICARE ADVANTAGE [facility] (WNR) Aug 23, 2020 [id number] [phone] ANNALISA LOYD ITE PATIENT [facility] (WNR) MEDICARE ADVANTAGE MCR(W NR) Aug 23, 2012 [id number] ANNALISA LOYD ITE PATIENT Selected Encounter This section includes the information on record at [place] for the Encounter. Date/Time Encounter Type Encounter Description Reason Pro vider Source Nov 24, 2023 11:11 AM Outpatient Encounter ADMIN PAT ACTIVTIES (MASNONCT) IHE Encounter Template Text not used by [place] Plan of Treatment: Future Appointments (+ 6 [...] 29, 2023 11:30 AM AMBULATORY - NONE [facility] Dec 10, 2023 02:00 PM AM[place]ORY [place] [facility] Dec 13, 2023 02:30 PM AMBULATORY - MEDICINE [facility] Dec 13, 2023 02:31 PM [place]ORY [place] [facility] Dec 16, 2023 08:00 AM [place]ORY [place] [facility] Dec 21, 2023 01:30 PM AMBUL[place]ORY [place] [facility] Feb 21, 2024 10:15 AM AM[place]ULATORY - NONE [place] [facility] Feb 21, 2024 11:00 AM AMBULATORY - NONE [place] [facility] Mar 18, 2024 12:01 AM AM[place]ULATORY - NONE [place] [facility] Apr 06, 2024 01:00 PM AM[place]ORY - [place]ONE [place] [facility] Apr 06, 2024 01:00 PM AMBULATORY - MEDICINE [facility] Apr 10, 2024 01:30 PM AMBULATORY - MEDICINE [facility] Apr 10, 2024 01:31 PM AM[place]ORY - [place]ONE [place] [facility] Apr 11, 2024 10:00 AM AMBULATORY - SURGERY [facility] Apr 11, 2024 10:01 AM AMB[place] [facility] Apr 21, 2024 10:30 AM AMBULATORY - NONE [place] [facility] May 03, 2024 02:30 PM AMBULATORY [place] [facility] May 04, 2024 10:30 AM [place] [facility] May 04, 2024 11:00 AM AMBULATORY - [place] [facility] May 04, 2024 12:30 PM AMBULATORY - NONE [place] [facility] Lab Results: +/- 30 days of [...] Range Comment Nov 29, 2023 11:27 AM [facility] URINALYSIS W/REFLEX TO CULTURE Specimen Type: URINE No comment entered. Ordering Provider: MIRIAN OSORIO CH Report Released Date/Time: Nov 24, 2023 05:48 PM Reporting Lab: [facility] [address] [facility] [address] Performing Lab: [facility] [address] [facility] [address] URINE COLOR Light[place] NOT DEFINED SPECIFIC GRAVITY 1.013 1.003-1.030 UROBILINOGEN [...] 2021 02:27 PM CURRENT SMOKER REINIER GAYLE [facility] Tobacco Use History This section includes a history of the smoking, or tobacco-related health factors, that were collected on or before the date of the Encounter. The data comes from the [place] facility where the Encounter took place. Date/Time Smoking Status/Tobacco Use Comment F acility Jul 01, 2021 08:55 PM VA-VAAES TOBACCO U SE CURRENT NRT DECLINE [facility] Jul 01, 2021 02:41 PM CURRENT SMOKER RE[place]IER [place] [facility] Dec 08, 2020 08:45 PM VA-TOBACCO USER EVERY DAY [facility] Dec 08, 2020 08:45 PM VA-VAAES TOBACCO U SE CURRENT NRT DECLINE [facility] Dec 08, 2020 06:58 PM VA-TOBACCO FORMER USER [facility] Apr 04, 2015 03:47 PM CURRENT SMOKER Less than a pack a day [facility] Apr 04, 2015 03:47 PM V1-PT NOT INTEREST ED IN QUIT TOBACCO USE [facility] Advance Directives: All historical and current [...] 08, 2017 ADVANCE DIRECTIVE DISCUSSION PURNIMA ROJAS [facility] Radiology Reports: +/- 30 days of [...] treatment facilities. Date/Time Radiology Report Provider Source Dec 16, 2023 11:15 AM UROGRAM RETROGRADE : GALINA LOYD [id number] -1945 M Exm Date: DEC 16, 2023@11:15 Req Phys: CORBY OSORIO Pat Loc: [facility] GENERAL G2RD (Req'g Img Loc: XRAY (OOS) Service: [place] [facility] [place] [address] (Case [id number] COMPLETE) UROGRAM RETROGRADE (RAD Detailed) CPT:40169 Contrast Media : Non-ionic Iodinated Proc Modifiers : OPERATING ROOM EXAM Reason for Study: bilat ureteroscopy laser litho, stent placement Clinical History: calculus of kidney Report Status: Verified Date Reported: DEC 16, 2023 Date Verified: DEC 16, 2023 Telegraphic Typewriter Operator Chief E-Sig:/VIVIAN/BENJAMÍN PIMENTEL Report: UROGRAM RETROGRADE 12/16/2023 11:15 AM Impression: Fluoroscopy performed during urology service procedure. FINDINGS: Procedure performed with the C-arm fluoroscopy . Fluoroscopy time 55 seconds, dose 9 mGy Fluoroscopic images consistent with history of bilateral ureteroscopy and stent placement. Labels from bilateral [employer] Contour double-J ureteral stents placed on the scanned worksheet Please see procedure note for further details. HISTORY: bilat ureteroscopy laser litho, stent placement, Primary Diagnostic Code: NO IMMEDIATE ATTENTION REQUIRED Primary Interpreting Staff: BENJAMÍN PIMENTEL, Staff Physician (Miah) /BENJAMÍN HYLTON Tobi [facility] Pathology Reports: +/- 30 days of [...] comes from all [place] treatment facilities. Date/Time Pathology Report Provider Source Nov 29, 2023 11:27 AM LR MICROBIOLOGY RE PORT: Reporting Lab: S[facility] [CLIA# [id number]] [address] [place] [address] Accession [UID]: [id number] [[id number]] Received: Nov 30, 2023@19:53 Collection sample: URINE CLEAN CATCH Collection date: Nov 29, 2023 11:27 Site/Specimen: URINE Provider: CORBY OSORIO Test(s) ordered: CULTURE,URINE CLEAN CATCH..... completed: Dec 02, 2023 13:00 * BACTERIOLOGY FINAL REPORT => Dec 02, 2023 13:01 TECH CODE: [id number] Bacteriology Remark(s): 12/02/23 50,000-99,000 CFU/mL AT LEAST THREE BACTERIAL TYPES PRESENT INDICATING POSSIBLE CONTAMINATION, PLEASE REPEAT COLLECTION. =--=--=--=--=--=--=--=--=--=--= --=--=--=--=--=--=--=--=--=--=- -=--=--=--=--=-- Performing Laboratory: Bacteriology Report Performed By: SONYA [place] [facility] [CLIA# [id number]] [address] [place] [address] [facility] Encounter Notes: All associated encounter notes This section contains the clinical notes associated to the Encounter. Date/Time Encounter Note(s) Provider Source Nov 24, 2023 11:11 AM ADMINISTRATIVE NOT E: LOCAL TITLE: Has Admin Note STANDARD TITLE: ADMINISTRATIVE NOTE DATE OF NOTE: NOV 24, 2023@11:11 ENTRY DATE: NOV 24, 2023@11:11:37 AUTHOR: ANNETTE ZHONG EXP COSIGNER: URGENCY: STATUS: COMPLETED Reason for call Clinic Name: Urology Pt left a voicemail stating he would like to speak with a doctor regarding a reaction he is having from his kidney stones. pt can be reached at [phone] /vivian/ ANNETTE MENDOZA Signed: 11/24/2023 11:13 Receipt Acknowledged By: 11/24/2023 16:54 /es/ RAMAKRISHNA AU Hand Assembler For Puller Over, Urology 11/24/2023 17:55 /es/ Pb OSORIO MD Staff Surgeon, Urology ANNETTE ZHONG Tobi [facility]
--- OUTSIDE RECORDS SUMMARY | 2024-05-24 19:19 | XMS_ITS | Encounter Summary ---
Author Name [facility] [place] Address [address] [place] [address] Care Team Providers Care Manager Cardiology Name Role Phone KYRA VELASQUEZ Primary Care [...] Ervin's Name Patient's Relationship to Policy Ervin [facility] (WNR) MEDICARE [facility](W NR) * Aug 23, 2023 [id number] ANNALISA LOYD ITE PATIENT [facility] (WNR) MEDICARE ADVANTAGE [facility] (WNR) Aug 23, 2020 [id number] [phone] ANNALISA LOYD ITE PATIENT [facility] (WNR) MEDICARE [facility](W NR) Aug 23, 2012 [id number] ANNALISA LOYD ITE PATIENT Selected Encounter This section includes the information on record at [place] for the Encounter. Date/Time Encounter Type Encounter Description Reason Provider Source Dec 15, 2023 01:30 PM HC PRO PHONE CALL 5-10 MIN TELEPHONE/MEDICIN E ICD-10-CM Z01.818 Encounter for other preprocedural examination TIFFANIEEARLWENDI Jannette FARTUN Encounter Template Text not used by [place] Assessments - Encounter Diagnoses This section includes the primary and secondary diagnoses documented for the Encounter. Date/Time Primary/Secondary Diagnosis Diagnosis Name Provider Source Dec 15, 2023 01:30 PM PRIMARY Encounter for other preprocedural examination SHAHZAD LUX [facility] Plan of Treatment: Future Appointments (+ 6 months) and Future Tests (+/- 45 days) The Plan of Treatment section includes future care activities for the patient from all [place] treatmentfacilities. This section includes future appointments and future orders which are active, pending or scheduled. Future Appointments This section includes appointments that were scheduled to occur 6 months from the date of the Encounter, up to a maximum of 20 appointments. The data comes from all [place] treatment facilities. Appointment Date/Time Appointment Type Appointme nt Facility Name Dec 16, 2023 08:00 AM [place] [facility] Dec 21, 2023 01:30 PM [place] [facility] Feb 21, 2024 10:15 AM AM[place]ULATORY - NONE [place] [facility] Feb 21, 2024 11:00 AM AMBULATORY - NONE [place] [facility] Mar 18, 2024 12:01 AM AMBULATORY - NONE [place] [facility] Apr 06, 2024 01:00 PM AMBULATORY - NONE [place] [facility] Apr 06, 2024 01:00 PM AMBULATORY - MEDICINE [facility] Apr 10, 2024 01:30 PM AMBULATORY - MEDICINE [facility] Apr 10, 2024 01:31 PM AMBULATORY - NONE [place] [facility] Apr 11, 2024 10:00 AM AMBULATORY - SURGERY [facility] Apr 11, 2024 10:01 AM [place] [facility] Apr 21, 2024 10:30 AM AMBULATORY - NONE [place] [facility] May 03, 2024 02:30 PM [place] [facility] May 04, 2024 10:30 AM AMBULATORY - [place]IC[place] [facility] May 04, 2024 11:00 AM AMBULATORY - [place] [facility] May 04, 2024 12:30 PM AMBULATORY - NONE SONYA LAI [facility] May 04, 2024 01:00 PM AMBULATORY - SURGERY [facility] May 08, 2024 02:30 PM AMBULATORY - MEDICINE [facility] May 08, 2024 02:31 PM AMBULATORY - NONE SONYA LAI Tobi [facility] May 16, 2024 10:00 AM AMBULATORY - SURGERY [facility] Active, Pending, and Scheduled Orders This section includes a listing of several types of active, pending, and scheduled orders, including clinic medications orders, diagnostic test orders, procedure orders and consult orders; where the start date of the order is 45 days before the date of the Encounter or 45 days after the date of theEncounter. The data comes from all [place] treatment facilities. Test Date/Time Test Type Test Details Facility Name January 18, 2024 12:13 PM Consult Order [facility]OLOGY Cons Research Quality Assurance Analyst's Choice [facility] Lab Results: +/- 30 days of the encounter This section includes the Chemistry and Hematology Lab Results on record with [place] for the patient. Radiology Reports and Pathology Reports are provided separately, in subsequent sections. Lab Results This section contains the Chemistry/Hematology Results that were resulted 30 days before or 30 daysafter the date of the Encounter. Date/Time Source Result Type Result - Unit Interpretation Reference Range Comment Nov 29, 2023 11:27 AM [facility] URINALYSIS W/REFLEX TO CULTURE Specimen Type: URINE No comment entered. Ordering Provider: MIRIAN OSORIO CH Report Released Date/Time: Nov 24, 2023 05:48 PM Reporting Lab: [facility] [address] [facility] [address] Performing Lab: [facility] [address] [facility] [address] URINE COLOR [place] NOT DEFINED SPECIFIC GRAVITY 1.013 1.003-1.030 UROBILINOGEN [...] and tobacco- related health factors from the [place] facility where the Encounter took place. Current Smoking Status This section includes the most current smoking, or tobacco-related health factor, from the [place] facility where the Encounter took place. Date/Time Current Smoking Status Comment Facil ity Jul 17, 2021 02:27 PM CURRENT SMOKER REINIER GAYLE [facility] Tobacco Use History This section includes a history of the smoking, or tobacco-related health factors, that were collected on or before the date of the Encounter. The data comes from the [place] facility where the Encounter took place. Date/Time Smoking Status/Tobacco Use Comment F acility Jul 01, 2021 08:55 PM VA-VAAES TOBACCO U SE CURRENT NRT DECLINE [facility] Jul 01, 2021 02:41 PM CURRENT SMOKER REINIER GAYLE [facility] Dec 08, 2020 08:45 PM VA-TOBACCO [...] ALL of a patient's completed or amended [place] Advance and Rescinded Directives. The entries below indicate that a directive exists for the patient, but an actual copy is not included with this document. The data comes from all [place] facilities. Date Advance Directives Provider Source Nov [...] the Encounter. The data comes from all [place] treatment facilities. Date/Time Radiology Report Provider Source Dec 16, 2023 11:15 AM UROGRAM RETROGRADE : GALINA LOYD [id number] -1945 M Exm Date: DEC 16, 2023@11:15 Req Phys: CORBY OSORIO Pat Loc: [facility] G2RD (Req'g Img Loc: XRAY (OOS) Service: [place] [address] (Case [id number] COMPLETE) UROGRAM RETROGRADE (RAD Detailed) CPT:00022 Contrast Media : Non-ionic Iodinated Proc Modifiers : OPERATING ROOM EXAM Reason for Study: bilat ureteroscopy laser litho, stent placement Clinical History: calculus of kidney Report Status: Verified Date Reported: DEC 16, 2023 Date Verified: DEC 16, 2023 Hand Crown Pouncer E-Sig:/VIVIAN/BENJAMÍN PIMENTEL Report: UROGRAM RETROGRADE 12/16/2023 11:15 AM Impression: Fluoroscopy performed during urology service procedure. FINDINGS: Procedure performed with the C-arm fluoroscopy . Fluoroscopy time 55 seconds, dose 9 mGy Fluoroscopic images consistent with history of bilateral ureteroscopy and stent placement. Labels from bilateral [employer] Contour double-J ureteral stents placed on the scanned worksheet Please see procedure note for further details. HISTORY: bilat ureteroscopy laser litho, stent placement, Primary Diagnostic Code: NO IMMEDIATE ATTENTION REQUIRED Primary Interpreting Staff: BENJAMÍN PIMENTEL, Staff Physician (Hand Crown Pouncer) /BENJAMÍN HYLTON [facility] Pathology Reports: +/- 30 days of [...] the Encounter. The data comes from all [place] treatment facilities. Date/Time Pathology Report Provider Source Nov 29, 2023 11:27 AM LR MICROBIOLOGY RE PORT: Reporting Lab: SONYA GAYLE [facility] [CLIA# [id number]] [address] [place] [address] Accession [UID]: [id number] [[id number]] Received: Nov 30, 2023@19:53 Collection sample: URINE CLEAN CATCH Collection date: Nov 29, 2023 11:27 Site/Specimen: URINE Provider: CORBY OSORIO Test(s) ordered: CULTURE,URINE CLEAN CATCH..... completed: Dec 02, 2023 13:00 * BACTERIOLOGY FINAL REPORT => Dec 02, 2023 13:01 TECH CODE: [id number] Bacteriology Remark(s): 12/02/23 50,000-99,000 CFU/mL AT LEAST THREE BACTERIAL TYPES PRESENT INDICATING POSSIBLE CONTAMINATION, PLEASE REPEAT COLLECTION. =--=--=--=--=--=--=--=--=--=--= --=--=--=--=--=--=--=--=--=--=- -=--=--=--=--=-- Performing Laboratory: Bacteriology Report Performed By: SONYA GAYLE [facility] [CLIA# [id number]] [address] [place] [address] [facility] Encounter Notes: All associated encounter notes This section contains the clinical notes associated to the Encounter. Date/Time Encounter Note(s) Provider Source Dec 15, 2023 01:30 PM NURSING TELEPHONE ENCOUNTER NOTE: LOCAL TITLE: TELEPHONE CALL SAME DAY PRE-PROCEDURE STANDARD TITLE: NURSING TELEPHONE ENCOUNTER NOTE DATE OF NOTE: DEC 15, 2023@13:30 ENTRY DATE: DEC 15, 2023@13:30:18 AUTHOR: SHAHZAD LUXIGNER: URGENCY: STATUS: COMPLETED Procedure to be done with Anesthesia. ARRIVIAL TIME: 1015 Procedure Date: Nov Procedure: uretroscopy SURGEON/PROCEDURALIST: Da Outpatient PRINTING SPECIALIST REQUIRED :Yes Name: Kinue In the last 48 hours, have you experienced any of the following symptoms? No symptoms Is the patient being admitted? No Instuctions: Nothing to eat: after midnight on :Nov Clear liquids until: 2 hours prior to your scheduled arrival time, Clear liquids include: water, sarika meng, apple/cranberry juice, black coffee or tea (no milk products) Appropriate medications to take: Routine am meds Have you started any new medications like an antibiotic or a medicine to thin your blood in the past two weeks? No if yes , describe Do you have any current skin issues including open sores, wounds, or rashes on your body? Yes red bottom if yes , the RN needs to notify the procedural team No jewelry, makeup, powder or deodorant Bring a valid ID, insurance card No valuables/appropriate clothing Must have a responsible Adult Type Caster All patient questions answered: Spoke with Darrel over the phone. Time:1331 Left Voice mail on number: . Time: PACU [facility] number, , provided for Vet to call back with any questions or concerns. Confirmed that the patient has received home COVID testing kit; obtained 72 -hour result if patient has completed testing at the time of call /vivian/ SHAHZAD LUX Registered Nurse Signed: 12/15/2023 13:33 SHAHZAD LUX [facility]
--- OUTSIDE RECORDS SUMMARY | 2024-05-24 19:19 | XMS_ITS ---
VA ANESTHESIA PRE/POST-OP CONSULT SONYA GAYLE [facility] Encounter Summary Created on: May 24, 2024 GALINA LOYDEN : 1945 Sex: Male Author Name [employer] [place] [employer] [facility] [employer] [place] Address [address] [place] [address] Care Team Providers Care Reed Polisher Name Role Phone KYRA VELASQUEZ Primary Care [...] Name Patient's Relationship to Policy Ervin [facility] (WNR) MEDICARE [facility](W NR) * Aug 23, 2023 [id number] ANNALISA LOYD ITE PATIENT [facility] (WNR) MEDICARE [facility] (WNR) Aug 23, 2020 [id number] [phone] ANNALISA LOYD ITE PATIENT [facility] (WNR) MEDICARE [facility](W NR) Aug 23, 2012 [id number] ANNALISA LOYD ITE PATIENT Selected Encounter This section includes the information on record at [place] for the Encounter. Date/Time Encounter Type Encounter Description Reason Provider Source Dec 15, 2023 10:52 AM Outpatient Encounter ANESTHESIA PRE/POST-OP CONSULT ICD-10-CM I71.40 Abdominal aortic aneurysm, without rupture, unspecified CALLY PRUITT CARMEN Jannette Encounter Template Text not used by [place] Assessments - Encounter Diagnoses This section includes the primary and secondary diagnoses documented for the Encounter. Date/Time Primary/Secondary Diagnosis Diagnosis Name Provider Source Dec 15, 2023 11:02 AM PRIMARY Abdominal aortic aneurysm, without rupture, unspecified KAYLEEN PRUITT [facility] Dec 15, 2023 11:02 AM SECONDARY Essential (primary) hypertension KAYLEEN PRUITT [facility] Dec 15, 2023 11:02 AM SECONDARY Nicotine dependence, cigarettes, uncomplicated KAYLEEN PRUITT [facility] Dec 15, 2023 11:02 AM SECONDARY Oth types of follicular lymphoma, lymph nodes [facility] KAYLEEN PRUITT [facility] Plan of Treatment: Future Appointments (+ 6 months) and Future Tests (+/- 45 days) The Plan of Treatment section includes future care activities for the patient [facility] This section includes future appointments and future orders which are active, pending or scheduled. Future Appointments This section includes appointments that were scheduled to occur 6 months from the date of the Encounter, up to a maximum of 20 appointments. The data comes from all [place] treatment facilities. Appointment Date/Time Appointment Type Appointme nt Facility Name Dec 16, 2023 08:00 AM AMBULATORY - SURGERY SONYA GAYLE T [facility] Dec 21, 2023 01:30 PM AMBULATORY - SURGERY SONYA GYALE T [facility] Feb 21, 2024 10:15 AM AMBULATORY - NONE [place] [facility] Feb 21, 2024 11:00 AM AMBULATORY - NONE [place] [facility] Mar 18, 2024 12:01 AM AMBULATORY - NONE [place] [facility] Apr 06, 2024 01:00 PM AMBULATORY - NONE [place] [facility] Apr 06, 2024 01:00 PM AMBULATORY - MEDICINE [facility] Apr 10, 2024 01:30 PM AMBULATORY - MEDICINE [facility] Apr 10, 2024 01:31 PM AMBULATORY - NONE [place] [facility] Apr 11, 2024 10:00 AM AMBULATORY - SURGERY [facility] Apr 11, 2024 10:01 AM AMBULATORY - SURGERY SONYA GAYLE T [facility] Apr 21, 2024 10:30 AM AMBULATORY - NONE [place] [facility] May 03, 2024 02:30 PM AMBULATORY - SURGERY WHITE NALINI T [facility] May 04, 2024 10:30 AM AMBULATORY - MEDICINE REINIER GAYLE T [facility] May 04, 2024 11:00 AM AMBULATORY - SURGERY SONYA GAYLE T [facility] May 04, 2024 12:30 PM AMBULATORY - NONE [place] [facility] May 04, 2024 01:00 PM AMBULATORY - SURGERY SONYA GAYLE T [facility] May 08, 2024 02:30 PM [facility] May 08, 2024 02:31 PM AMBULATORY - NONE [place] [facility] May 16, 2024 10:00 AM AMBULATORY - SURGERY Jorge A [facility] Active, Pending, and Scheduled Orders This section includes a listing of several types of active, pending, and scheduled orders, including clinic medications orders, diagnostic test orders, procedure orders and consult orders; where the start date of the order is 45 days before the date of the Encounter or 45 days after the date of theEncounter. The data comes from all [place] treatment facilities. Test Date/Time Test Type Test Details Facility Name January 18, 2024 12:13 PM Consult Order COMMUNITY CARE-NEUROLOGY Cons College Director's Choice SONYA GAYLE [facility] Lab Results: +/- 30 days of [...] Range Comment Nov 29, 2023 11:27 AM [facility] URINALYSIS W/REFLEX TO CULTURE Specimen Type: URINE No comment entered. Ordering Provider: MIRIAN OSORIO CH Report Released Date/Time: Nov 24, 2023 05:48 PM Reporting Lab: SONYA GAYLE [facility] [address] [facility] [address] Performing Lab: [facility] [address] [facility] [address] URINE [place] NOT DEFINED SPECIFIC GRAVITY 1.013 1.003-1.030 UROBILINOGEN [...] and tobacco- related health factors from the NE facility where the Encounter took place. Current Smoking Status This section includes the most current smoking, or tobacco-related health factor, from the NE facility where the Encounter took place. Date/Time Current Smoking Status Comment Nataly ity Jul 17, 2021 02:27 PM CURRENT SMOKER REINIER Bhatia [facility] Tobacco Use History This section includes a history of the smoking, or tobacco-related health factors, that were collected on or before the date of the Encounter. The data comes from the NE facility where the Encounter took place. Date/Time Smoking Status/Tobacco Use Comment F acility Jul 01, 2021 08:55 PM VA-VAAES TOBACCO U SE CURRENT NRT DECLINE [facility] Jul 01, 2021 02:41 PM CURRENT SMOKER REINIER GAYLE [facility] Dec 08, 2020 08:45 PM VA-TOBACCO USER EVERY DAY [facility] Dec 08, 2020 08:45 PM VA-VAAES TOBACCO U SE CURRENT NRT DECLINE [facility] Dec 08, 2020 06:58 PM VA-TOBACCO FORMER USER [facility] Apr 04, 2015 03:47 PM CURRENT SMOKER Less than a pack a day [facility] Apr 04, 2015 03:47 PM V1-PT NOT INTEREST ED IN QUIT TOBACCO USE [facility] Advance Directives: All historical and current Section Date Range: From patient's date of to the date document was created. This section includes ALL of a patient's completed or amended [place] Advance and Rescinded Directives. The entries below indicate that a directive exists for the patient, but an actual copy is not included with this document. The data comes from all [place] facilities. Date Advance Directives Provider Source Nov 18, 2017 ADVANCE DIRECTIVE REBECCARADHA [facility] Jul 08, 2017 ADVANCE DIRECTIVE DISCUSSION PURNIMA ROJAS [facility] Radiology Reports: +/- 30 days of [...] the Encounter. The data comes from all [place] treatment facilities. Date/Time Radiology Report Provider Source Dec 16, 2023 11:15 AM UROGRAM RETROGRADE : GALINA LOYD [id number] -1945 M Exm Date: DEC 16, 2023@11:15 Req Phys: CORBY OSORIO Pat Loc: [facility] G2RD (Req'g Img Loc: XRAY (OOS) Service: [place] [address] (Case [id number] COMPLETE) UROGRAM RETROGRADE (RAD Detailed) CPT:83895 Contrast Media : Non-ionic Iodinated Proc Modifiers : OPERATING ROOM EXAM Reason for Study: bilat ureteroscopy laser litho, stent placement Clinical History: calculus of kidney Report Status: Verified Date Reported: DEC 16, 2023 Date Verified: DEC 16, 2023 Keyseating Machine Set Up Operator E-Sig:/ES/BENJAMÍN PIMENTEL Report: UROGRAM RETROGRADE 12/16/2023 11:15 AM Impression: Fluoroscopy performed during urology service procedure. FINDINGS: Procedure performed with the C-arm fluoroscopy . Fluoroscopy time 55 seconds, dose 9 mGy Fluoroscopic images consistent with history of bilateral ureteroscopy and stent placement. Labels from bilateral [employer] Contour double-J ureteral stents placed on the scanned worksheet Please see procedure note for further details. HISTORY: bilat ureteroscopy laser litho, stent placement, Primary Diagnostic Code: NO IMMEDIATE ATTENTION REQUIRED Primary Interpreting Staff: BENJAMÍN PIMENTEL, Staff Physician (Keyseating Machine Set Up Operator) /BENJAMÍN [facility] Pathology Reports: +/- 30 days of the [...] the Encounter. The data comes from all [facility] facilities. Date/Time Pathology Report Provider Source Nov 29, 2023 11:27 AM LR MICROBIOLOGY RE PORT: Reporting Lab: [facility] [CLIA# [id number]] [address] [place] [address] Accession [UID]: [id number] [[id number]] Received: Nov 30, 2023@19:53 Collection sample: URINE CLEAN CATCH Collection date: Nov 29, 2023 11:27 Site/Specimen: URINE Provider: CORBY OSORIO Test(s) ordered: CULTURE,URINE CLEAN CATCH..... completed: Dec 02, 2023 13:00 * BACTERIOLOGY FINAL REPORT => Dec 02, 2023 13:01 TECH CODE: [id number] Bacteriology Remark(s): 12/02/23 50,000-99,000 CFU/mL AT LEAST THREE BACTERIAL TYPES PRESENT INDICATING POSSIBLE CONTAMINATION, PLEASE REPEAT COLLECTION. =--=--=--=--=--=--=--=--=--=--= --=--=--=--=--=--=--=--=--=--=- -=--=--=--=--=-- Performing Laboratory: Bacteriology Report Performed By: SONYA [facility] [CLIA# [id number]] [address] [place] [address] [facility] Encounter Notes: All associated encounter notes This section contains the clinical notes associated to the Encounter. Date/Time Encounter Note(s) Provider Source Dec 15, 2023 10:53 AM ANESTHESIOLOGY PRE OPERATIVE E & M NOTE: LOCAL TITLE: Pre Op Note/Anesthesia STANDARD TITLE: ANESTHESIOLOGY PRE OPERATIVE E & M NOTE DATE OF NOTE: DEC 15, 2023@10:53 ENTRY DATE: DEC 15, 2023@10:53:10 AUTHOR: DEEL PRUITT EXP COSIGNER: URGENCY: STATUS: COMPLETED I. HISTORY PREOP DIAGNOSIS: Calculus of Kidney PROPOSED PROCEDURE: Ureteroscopy and stent placement Age:78 Sex:MALE 70 in [177.8 cm] (04/29/2023 07:39) 121.3 lb [55.02 kg] (12/13/2023 14:34) BODY MASS INDEX - DEC 13, 2023@14:34:58 17.4 Allergies: OMNIPAQUE 350 INJECTION HISTORY OF PRESENT ILLNESS: Refer to Urology notes. Aspiration risk: No Active problems - Computerized Problem List is the source for the followin. Exposure to potentially hazardous substance 2. Delirium 3. Depression 4. Bradycardia 5. Non-traumatic subdural haemorrhage 6. 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 Aorta is very tortuous. 7. Thoracic aortic aneurysm without rupture 8. Follicular non-Hodgkin lymphoma, small cleaved cell 9. Tobacco dependence 10. Alcohol dependence 11. Hypertension 12. Family history of prostate cancer 13. Family history of malignant neoplasm of breast 14. 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 Aorta is very tortuous. Seen by Dr Wong recommends 6 mo surveillance Abnormal Neurologic Findings:Seizures Mental Health Problems: MDD Abnormal Genitourinary Findings: Stones Gastroenterology - Within Normal Limits Endocrine System - Within Normal Limits Musculoskeletal System - Within Normal Limits Abnormal Hematology Findings Other Hematology Findings: Lymphoma No Significant Infectious Diseases PAST SURGICAL HISTORY: 12/16/2023 BILATERAL URETEROSCOPY LASER SCHEDULED LITHOTRIPSY STENT PLACEMENT 04/29/2023 BILATERAL URETEROSCOPY, ..., STENT (COMPLETED) PLACEMENT 03/04/2023 BILATERAL URETEROSCOPY AND (COMPLETED) BILATERAL STENT PLACEMENT 01/07/2023 BILATERAL URETEROSCOPY LASER (COMPLETED) LITHOTRIPSY STENT EXCHANGE BASKET EXTRACTION OF STONE FRAGMENTS 12/28/2022 BILATERAL URETEROSCOPY LASER (COMPLETED) LITHOTRIPSY STENT PLACEMENT 12/14/2022 CYSTOSCOPY/BILATERAL STENT (COMPLETED) PLACEMENT 07/29/2022 CYSTO/LITHOLAPAXY 1.5CM (COMPLETED) Anesthetic History: No significant personal/family history of anesthetic complications. CURRENT SOCIAL HISTORY: Tobacco Use: yes ETOH USE: no Substance Abuse/USE: no Medications: Active Outpatient Medications (excluding Supplies): Active Outpatient Medications Status 1) ATORVASTATIN CALCIUM 40MG TAB TAKE TWO TABLET(S) BY ACTIVE MOUTH EVERY EVENING TO LOWER CHOLESTEROL 2) LACOSAMIDE 50MG TAB TAKE FOUR TABLETS BY MOUTH TWICE ACTIVE A DAY MAY TAKE AN EXTRA TWO TABLETS IF ANY UTI,FEVER, OR ANY SURGICAL PROCEDURE 3) LACTOBACILLUS COMBO TAB TAKE ONE TABLET BY MOUTH ONCE ACTIVE DAILY FOR GI 4) MELATONIN 3MG CAP/TAB TAKE ONE CAP/TAB BY MOUTH AT ACTIVE (S) BEDTIME NEEDED FOR SLEEP 5) NITROFURANTOIN MONO/MACRO 100MG SA CAP TAKE ONE ACTIVE CAPSULE BY MOUTH TWICE A DAY WITH MEALS TO PREVENT UTI - PLEASE START THIS MEDICATION THE MORNING OF WednesdayDECEMBER 09 IN PREPARATION FOR YOUR DECEMBER 15 UROLOGY PROCEDURE. 6) POTASSIUM CHLORIDE 10MEQ SA TAB TAKE ONE TABLET BY ACTIVE MOUTH EVERY MORNING WITH BREAKFAST TO SUPPLEMENT POTASSIUM 7) TAMSULOSIN HCL 0.4MG CAP TAKE ONE CAPSULE BY MOUTH ACTIVE TWICE A DAY 30 MINUTES AFTER THE SAME MEALTIME EACH DAY FOR PROSTATE/URINARY SYMPTOMS. Active Non-VA Meds NONE II. PHYSICAL EXAM To be completed on day of procedure. DATE/TIME TEMP PULSE RESP BP PAIN WEIGHT 12/13/23 @ 1434 121.3 LATEST LAB RESULTS: LAST BMP Collection DT Specimen Test Name Result Units Ref Range 02/11/2023 14:30 PLASMA!! UREA NITROGEN 8 mg/dL 7 - 25 02/11/2023 14:30 PLASMA!! SODIUM 141 mmol/L 135 - 145 02/11/2023 14:30 PLASMA!! POTASSIUM 3.3 L mmol/L 3.5 - 5.0 02/11/2023 14:30 PLASMA!! CHLORIDE 103 mmol/L 100 - 110 02/11/2023 14:30 PLASMA!! CARBON DIOXIDE 29 mmol/L 20 - 30 02/11/2023 14:30 PLASMA!! ANION GAP 9 mmol/L 4 - 16 02/11/2023 14:30 PLASMA!! GLUCOSE 100 mg/dL 65 - 100 02/11/2023 14:30 PLASMA!! CREATININE 0.84 mg/dl 0.5 - 1.5 02/11/2023 14:30 PLASMA!! CALCIUM 9.4 mg/dL 8.5 - 10.5 !! Indicates COMMENTS AVAILABLE...Refer to Interim Lab Report. No data available WBC: 7.1 (12/08/22 12:01) HCT: 46.2 (12/08/22 12:01) HGB: 14.7 (12/08/22 12:01) PLT: 188 (12/08/22 12:01) EKG: EKG - NONE FOUND Oct@10:21:40 VASCULAR LAB PROCEDURE : LOCAL TITLE: Vascular Lab Result STANDARD TITLE: VASCULAR SURGERY DIAGNOSTIC STUDY REPORT DATE OF NOTE: NOV 04, 2023@10:21 ENTRY DATE: NOV 04, 2023@10:21:40 AUTHOR: NATY WONG EXP COSIGNER: URGENCY: STATUS: COMPLETED Procedure: Arterial Duplex Exam Registered Profile Mill Operator Tape Control: ALETHEA TREJO Ordering Provider: NATY WONG Indication for exam: aneurysm follow-up, ?change Duplex Findings: Location: Diameter(cm) Diameter(cm) AP Transverse Aorta: Proximal No vis Mid No Vis Distal 5.0 5.1 RT proximal TALIA 1.1 1.1 LT proximal TALIA 1.2 1.3 Summary: Bilobed, 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 Aorta is very tortuous. Patent proximal common iliac arteries with no evidence of aneurysm. No previous exam available for comparison. /vivian/ NATY Gifford MD Signed: 11/04/2023 10:34 No data available for: STRESS TEST REPORT/CARDIOLOGY Radiological Investigations: Imaging Impression (14 Days) No data available III. SUMMARY OF THE OVERALL ASSESSMENT: ASA status: 3 ANESTHETIC PLAN, RISKS, BENEFITS AND ALTERNATIVES including applicable General Anesthesia, Regional Anesthesia and Monitored Anesthesia Care will be discussed with the patient and family on the date of procedure. An attempt to accommodate the patient's anesthetic preference will be made when feasible. The ultimate choice for anesthetic plan is at the discretion of the anesthesia provider. TOTAL TIME SPENT IN CHART REVIEW: 15 minutes of this visit was spent in chart review and coordination of care, as detailed above. /vivian/ EDEL PRUITT Anesthesiologist Signed: 12/15/2023 11:02 EDEL PRUITT [facility]
--- OUTSIDE RECORDS SUMMARY | 2024-05-24 19:19 | XMS_ITS | Encounter Summary ---
Author Name [facility] [place] [facility] [place] Address [address] [place] [address] Care Team Providers Care Cottage Supervisor Name Role Phone RON KYRA Primary Care [...] Ervin's Name Patient's Relationship to Policy Ervin [facility] (WNR) MEDICARE ADVANTAGE [employer](W NR) * Aug 23, 2023 [id number] ANNALISA LOYD ITE PATIENT [facility] M[facility] (WNR) MEDICARE ADVANTAGE MCR (WNR) Aug 23, 2020 [id number] [phone] ANNALISA LOYD ITE PATIENT [facility] M[facility] (WNR) MEDICARE ADVANTAGE [employer](W NR) Aug 23, 2012 [id number] ANNALISA LOYD ITE PATIENT Selected Encounter This section includes the information on record at [place] for the Encounter. Date/Time Encounter Type Encounter Description Reason Pro vider Source Nov 10, 2023 10:52 AM Outpatient Encounter COMMUNITY CARE CONSULT IHE Encounter Template Text not used by [facility] Plan of Treatment: Future Appointments (+ 6 months) and Future Tests (+/- 45 days) The Plan of Treatment section includes future care activities for the patient from all [place] treatmentfacilities. This section includes future appointments and future orders which are active, pending or scheduled. Future Appointments This section includes appointments that were scheduled to occur 6 months from the date of the Encounter, up to a maximum of 20 appointments. The data comes from all [place] treatment facilities. Appointment Date/Time Appointment Type Appointme nt Facility Name Nov 29, 2023 11:30 AM AMBULATORY - NONE [facility] Dec 10, 2023 02:00 PM AMBULATORY [place] SURGERY [facility] Dec 13, 2023 02:30 PM AMBULATORY - MEDICINE [facility] Dec 13, 2023 02:31 PM AMBULATORY - NONE [facility] [place] [facility] Dec 16, 2023 08:00 AM AMBULATORY - SURGERY [facility] Dec 21, 2023 01:30 PM AMBULATORY - SURGERY [facility] Feb 21, 2024 10:15 AM AMBULATORY - NONE [facility] [place] [facility] Feb 21, 2024 11:00 AM AMBULATORY - NONE [facility] Mar 18, 2024 12:01 AM AMBULATORY - NONE [facility] [place] [facility] Apr 06, 2024 01:00 PM AMBULATORY - NONE [facility] [place] [facility] Apr 06, 2024 01:00 PM AMBULATORY - MEDICINE [facility] Apr 10, 2024 01:30 PM AMBULATORY - MEDICINE [facility] Apr 10, 2024 01:31 PM AMBULATORY - NONE [place] Apr 11, 2024 10:00 AM AMBULATORY - SURGERY [facility] Apr 11, 2024 10:01 AM AMBULATORY - SURGERY [facility] Apr 21, 2024 10:30 AM AMBULATORY - NONE [facility] May 03, 2024 02:30 PM AMBULATORY - SURGERY [facility] May 04, 2024 10:30 AM [facility] [place] [facility] [facility] May 04, 2024 11:00 AM AMBULATORY - SURGERY [facility] May 04, 2024 12:30 PM [facility]ORY - NONE [place] [facility] Lab Results: +/- 30 days of the [...] Reporting Lab: [facility] [address] [facility] [address] Performing Lab: [facility] [address] [address] URINE COLOR [place] NOT DEFINED SPECIFIC GRAVITY 1.013 1.003-1.030 UROBILINOGEN [...] and tobacco- related health factors from the [place] facility where the Encounter took place. Current Smoking Status This section includes the most current smoking, or tobacco-related health factor, from the [place] facility where the Encounter took place. Date/Time Current Smoking Status Comment Facil ity Jul 17, 2021 02:27 PM CURRENT SMOKER REINIER GAYLE [facility] Tobacco Use History This section includes a history of the smoking, or tobacco-related health factors, that were collected on or before the date of the Encounter. The data comes from the [place] facility where the Encounter took place. Date/Time Smoking Status/Tobacco Use Comment F acility Jul 01, 2021 08:55 PM VA-VAAES TOBACCO U SE CURRENT NRT DECLINE SONYA [facility] Jul 01, 2021 02:41 PM CURRENT SMOKER REINIER GAYLE [facility] Dec 08, 2020 08:45 PM VA-TOBACCO USER EVERY DAY [facility] Dec 08, 2020 08:45 PM VA-VAAES TOBACCO U SE CURRENT NRT DECLINE [facility] Dec 08, 2020 06:58 PM VA-TOBACCO [...] ALL of a patient's completed or amended [place] Advance and Rescinded Directives. The entries below indicate that a directive exists for the patient, but an actual copy is not included with this document. The data comes from all [place] facilities. Date Advance Directives Provider Source Nov [...] the Encounter. The data comes from all [place] treatment facilities. Date/Time Radiology Report Provider Source Oct 22, 2023 04:[address] ABD & PELVIS WI THOUT CONTRAST: GALINA LOYD [id number] -1945 M Exm Date: OCT 22, 2023@04:45 Req Phys: TODD SANATMARIA Loc: OUTSIDE [facility] CT SCAN (Req'g Loc Img Loc: OUTSIDE [facility] CT SCAN Service: Unknown (Case [id number] COMPLETE) CT ABD & PELVIS WITHOUT CONTRAST (CT Detailed) CPT:83750 Reason for Study: Exam imported from outside Clinical History: Original Data for Imported Study Patient Name: GALINA LOYD Date: 1945 Sex: M Study Date: 10/22/23 Study Time: 04:45:59 Study Description: CT ABDOMEN AND PELVIS WO CONTRAST Referring Physician: JONN GUSTAFSON JR Series 1: 1 CT file, description: Supervisor Shipping Room LAT Series 2: 1 CT file, description: Supervisor Shipping Room AP Series 3: 1 CT file, description: Patient Protocol Series 4: 156 CT files, description: STD WO F_0.6 Series 5: 778 CT files, description: STD THN WO F_0.6 Series 6: 88 CT files, description: COR 3 WO F_0.6 Series 7: 115 CT files, description: SAG 3 WO F_0.6 Series 8: 2 TN files, description: [id number] Series 9: 1 KO file, description: [id number] Report Status: Electronically Filed Date Reported: NOV 26, 2023 Report: RADIOLOGY PROCEDURE: N O T I C E: SCANNED IN EXAM THIS EXAMINATION WAS PERFORMED AND INTERPRETED AT A NON-[place] FACILITY. To view the Images or report (if a report was included with the images), select the [employer] Tools Menu and choose the Image Display (Viewer) option. Impression: RADIOLOGY PROCEDURE: N O T I C E: SCANNED IN EXAM THIS EXAMINATION WAS PERFORMED AND INTERPRETED AT A NON-[place] FACILITY. To view the Images or report (if a report was included with the images), select the [employer] Tools Menu and choose the Image Display (Viewer) option. VERIFIED BY: / *ELECTRONICALLY FILED* SONYA GAYLE [facility] Pathology Reports: +/- 30 days of [...] the Encounter. The data comes from all [place] treatment facilities. Date/Time Pathology Report Provider Source Nov 29, 2023 11:27 AM LR MICROBIOLOGY RE PORT: Reporting Lab: [facility] [CLIA# [id number]] [address] [place] [address] Accession [UID]: [id number] [[id number]] Received: Nov 30, 2023@19:53 Collection sample: URINE CLEAN CATCH Collection date: Nov 29, 2023 11:27 Site/Specimen: URINE Provider: CORBY OSORIO Test(s) ordered: CULTURE,URINE CLEAN CATCH..... completed: Dec 02, 2023 13:00 * BACTERIOLOGY FINAL REPORT => Dec 02, 2023 13:01 TECH CODE: [id number] Bacteriology Remark(s): 12/02/23 50,000-99,000 CFU/mL AT LEAST THREE BACTERIAL TYPES PRESENT INDICATING POSSIBLE CONTAMINATION, PLEASE REPEAT COLLECTION. =--=--=--=--=--=--=--=--=--=--= --=--=--=--=--=--=--=--=--=--=- -=--=--=--=--=-- Performing Laboratory: Bacteriology Report Performed By: [facility] [CLIA# [id number]] [address] [place] [address] [facility] Encounter Notes: All associated encounter notes This section contains the clinical notes associated to the Encounter. Date/Time Encounter Note(s) Provider Source Nov 26, 2023 06:58 AM ADDENDUM: LOCAL TITLE: Addendum STANDARD TITLE: ADDENDUM DATE OF NOTE: NOV 26, 2023@06:58:06 ENTRY DATE: NOV 26, 2023@06:58:08 AUTHOR: ADRIÁN MANCERA EXP COSIGNER: URGENCY: STATUS: COMPLETED Recvd another voicemail from [facility] that they have rescheduled [facility] Uro appt and have refaxed RFS to [phone] - Alerting Debbi to keep an eye out for RFS /vivian/ ADRIÁN MANCERA Signed: 11/26/2023 06:59 Receipt Acknowledged By: 11/30/2023 14:59 /huber WARREN BA, RN CNOR Registered Nurse --- Original Document --- 11/10/23 COMMUNITY CARE-CARE COORDINATION PLAN NOTE: Recvd a Vm from [facility] [phone] that has Urology SX scheduled 11/25/23 and auth is . Called back and spoke with Dori and requested to please fax RFAS,([place] [id number] ) and Supporting Medical Documentation to . /vivian/ ADRIÁN MANCERA Signed: 11/10/2023 10:55 11/25/2023 ADDENDUM STATUS: COMPLETED Recvd a voicemail from [facility] asking the status of RFS - Called back and LVM that I do not see that an RFS has been uploaded. Requested a call back /vivian/ ADRIÁN MANCERA Signed: 11/25/2023 13:48 11/30/2023 ADDENDUM STATUS: UNSIGNED You may not VIEW this UNSIGNED Addendum. ADRIÁN MANCERA [facility] Nov 10, 2023 10:52 AM NONVA NOTE: LOCAL TITLE: COMMUNITY CARE-CARE COORDINATION PLAN NOTE STANDARD TITLE: NONVA NOTE DATE OF NOTE: NOV 10, 2023@10:52 ENTRY DATE: NOV 10, 2023@10:52:29 AUTHOR: ADRIÁN MANCERA EXP COSIGNER: URGENCY: STATUS: COMPLETED COMMUNITY CARE-CARE COORDINATION PLAN NOTE Has ADDENDA Recvd a Vm from [facility] [phone] that has Urology SX scheduled 11/25/23 and auth is . Called back and spoke with Dori and requested to please fax RFAS,([place] Form [id number] ) and Supporting Medical Documentation to . /vivian/ ADRIÁN MANCERA Signed: 11/10/2023 10:55 11/25/2023 ADDENDUM STATUS: COMPLETED Recvd a voicemail from [facility] asking the status of RFS - Called back and LVM that I do not see that an RFS has been uploaded. Requested a call back /es/ ADRIÁN MANCERA Signed: 11/25/2023 13:48 11/26/2023 ADDENDUM STATUS: COMPLETED Recvd another voicemail from [facility] that they have rescheduled [facility] Uro appt and have refaxed RFS to [phone] - Alerting Debbi to keep an eye out for RFS /vivian/ ADRIÁN MANCERA Signed: 11/26/2023 06:59 Receipt Acknowledged By: 11/30/2023 14:59 /vivian/ KALE WARREN BA, RN CNOR Registered Nurse 11/30/2023 ADDENDUM STATUS: COMPLETED Called Dori from [facility] at the above-mentioned number. Left message on secure VM to state that we have not yet received the RFS form requesting a Urology authorization for this . I recommended she either refax to [phone] or send via secure email to my attention. Also provided my direct phone/extension so that she can call me directly to work on this issue on the [place]'s behalf. /vivian/ KALE WARREN BA, RN CNOR Registered Nurse Signed: 11/30/2023 15:01 ADRIÁN MANCERA [facility]
--- OUTSIDE RECORDS SUMMARY | 2024-05-24 19:19 | XMS_ITS ---
[place] MED NUTRITION INDIV SUBSEQ [facility] Encounter Summary Created on: May 24, 2024 GALINA LOYD : 1945 Sex: Male Author Name [facility] [place] Organization [place] Address [address] [place] [address] Care Team Providers Care Water Hauler Name Role Phone KYRA VELASQUEZ Primary Care [...] Ervin's Name Patient's Relationship to Policy Ervin [facility] (WNR) MEDICARE [facility](W NR) * Aug 23, 2023 [id number] ANNALISA LOYD ITE PATIENT [facility] (WNR) MEDICARE ADVANTAGE [facility] (WNR) Aug 23, 2020 [id number] [phone] ANNALISA LOYD ITE PATIENT [facility] (WNR) MEDICARE [facility](W NR) Aug 23, 2012 [id number] ANNALISA LOYD ITE PATIENT Selected Encounter This section includes the information on record at [place] for the Encounter. Date/Time Encounter Type Encounter Description Reason Provider Source Dec 13, 2023 02:31 PM MED NUTRITION INDIV SUBSEQ NUTRITION/DIETETI CS-INDIVIDUAL ICD-10-CM Z71.3 Dietary counseling and surveillance PURNIMA GANDHI [facility] Encounter Template Text not used by [place] Assessments - Encounter Diagnoses This section includes the primary and secondary diagnoses documented for the Encounter. Date/Time Primary/Secondary Diagnosis Diagnosis Name Provider Source Dec 13, 2023 03:10 PM PRIMARY Dietary counseling and surveillance PURNIMA GANDHI [facility] Dec 13, 2023 03:10 PM SECONDARY Body mass index [BMI] 19.9 or less, adult PURNIMA GANDHI [facility] Plan of Treatment: Future Appointments (+ 6 months) and Future Tests (+/- 45 days) The Plan of Treatment section includes future care activities for the patient from all [place] treatmentfacilities. This section includes future appointments and future orders which are active, pending or scheduled. Future Appointments This section includes appointments that were scheduled to occur 6 months from the date of the Encounter, up to a maximum of 20 appointments. The data comes from all [place] treatment facilities. Appointment Date/Time Appointment Type Appointme nt Facility Name Dec 16, 2023 08:00 AM [place] [facility] Dec 21, 2023 01:30 PM [place] [facility] Feb 21, 2024 10:15 AM [place]ORY [place]ONE [place] [facility] Feb 21, 2024 11:00 AM [place]ORY - [place]ONE [place] [facility] Mar 18, 2024 12:01 AM AM[place]ULATORY - NONE [place] [facility] Apr 06, 2024 01:00 PM AM[place]ORY - [place]ONE [place] [facility] Apr 06, 2024 01:00 PM AMBULATORY - MEDICINE [facility] Apr 10, 2024 01:30 PM AMBULATORY - MEDICINE [facility] Apr 10, 2024 01:31 PM AM[place]UL[place]ORY - [place]ONE [place] [facility] Apr 11, 2024 10:00 AM AMBULATORY - SURGERY [facility] Apr 11, 2024 10:01 AM [place] [facility] Apr 21, 2024 10:30 AM [place]ORY - NONE [place] [facility] May 03, 2024 02:30 PM [place] [facility] May 04, 2024 10:30 AM AMBULATORY - MEDICINE RE[facility] May 04, 2024 11:00 AM AMBULATORY - SURGERY [facility] May 04, 2024 12:30 PM AMBULATORY - NONE [facility] May 04, 2024 01:00 PM AMBULATORY - SURGERY [facility] May 08, 2024 02:30 PM AMBULATORY - MEDICINE [facility] May 08, 2024 02:31 PM AMBULATORY - NONE [facility] May 16, 2024 10:00 AM AMBULATORY - SURGERY [facility] Active, Pending, and Scheduled Orders This section includes a listing of several types of active, pending, and scheduled orders, including clinic medications orders, diagnostic test orders, procedure orders and consult orders; where the start date of the order is 45 days before the date of the Encounter or 45 days after the date of theEncounter. The data comes from all [place] treatment facilities. Test Date/Time Test Type Test Details Facility Name January 18, 2024 12:13 PM Consult Order COMMUNITY CARE-NEUROLOGY Cons Outside Deliverer's Choice [facility] Lab Results: +/- 30 days [...] Nov 24, 2023 05:48 PM Reporting Lab: [facility] [address] [facility] [facility] [address] Performing Lab: [facility] [address] [facility] [address] URINE COLOR Light-[place] NOT DEFINED SPECIFIC GRAVITY 1.013 1.003-1.030 UROBILINOGEN [...] and tobacco- related health factors from the [place] facility where the Encounter took place. Current Smoking Status This section includes the most current smoking, or tobacco-related health factor, from the [place] facility where the Encounter took place. Date/Time Current Smoking Status Comment Facil ity Jul 17, 2021 02:27 PM CURRENT SMOKER REINIER GAYLE [facility] Tobacco Use History This section includes a history of the smoking, or tobacco-related health factors, that were collected on or before the date of the Encounter. The data comes from the [place] facility where the Encounter took place. Date/Time Smoking Status/Tobacco Use Comment F acility Jul 01, 2021 08:55 PM VA-VAAES TOBACCO U SE CURRENT NRT DECLINE [facility] Jul 01, 2021 02:41 PM CURRENT SMOKER [facility] Dec 08, 2020 08:45 PM VA-TOBACCO USER EVERY DAY [facility] Dec 08, 2020 08:45 PM VA-VAAES TOBACCO U SE CURRENT NRT DECLINE [facility] Dec 08, 2020 06:58 PM VA-TOBACCO FORMER USER [facility] Apr 04, 2015 03:47 PM CURRENT SMOKER Less than a pack a day [facility] Apr 04, 2015 03:47 PM V1-PT NOT INTEREST ED IN QUIT TOBACCO USE [facility] Advance Directives: All historical and current Section Date Range: From patient's date of to the date document was created. This section includes ALL of a patient's completed or amended [place] Advance and Rescinded Directives. The entries below indicate that a directive exists for the patient, but an actual copy is not included with this document. The data comes from all [place] facilities. Date Advance Directives Provider Source Nov 18, 2017 ADVANCE DIRECTIVE RADHA FERNANDEZ [facility] Jul 08, 2017 ADVANCE DIRECTIVE DISCUSSION PURNIMA ROJAS [facility] Radiology Reports: +/- 30 days [...] the Encounter. The data comes from all [place] treatment facilities. Date/Time Radiology Report Provider Source Dec 16, 2023 11:15 AM UROGRAM RETROGRADE : GALINA LOYD [id number] -1945 M Exm Date: DEC 16, 2023@11:15 Req Phys: CORBY OSORIO Pat Loc: [facility] GENER[facility] G2RD (Req'g Img Loc: XRAY (OOS) Service: [place] [address] (Case [id number] COMPLETE) UROGRAM RETROGRADE (RAD Detailed) CPT:81745 Contrast Media : Non-ionic Iodinated Proc Modifiers : OPERATING ROOM EXAM Reason for Study: bilat ureteroscopy laser litho, stent placement Clinical History: calculus of kidney Report Status: Verified Date Reported: DEC 16, 2023 Date Verified: DEC 16, 2023 Voip Network Engineer E-Sig:/PARIS/BENJAMÍN PIEMNTEL Report: UROGRAM RETROGRADE 12/16/2023 11:15 AM Impression: Fluoroscopy performed during urology service procedure. FINDINGS: Procedure performed with the C-arm fluoroscopy . Fluoroscopy time 55 seconds, dose 9 mGy Fluoroscopic images consistent with history of bilateral ureteroscopy and stent placement. Labels from bilateral [employer] Contour double-J ureteral stents placed on the scanned worksheet Please see procedure note for further details. HISTORY: bilat ureteroscopy laser litho, stent placement, Primary Diagnostic Code: NO IMMEDIATE ATTENTION REQUIRED Primary Interpreting Staff: BENJAMÍN PIMENTEL, Staff Physician (Voip Network Engineer) /BENJAMÍN HYLTON [facility] Pathology Reports: +/- 30 days of [...] the Encounter. The data comes from all [place] treatment facilities. Date/Time Pathology Report Provider Source Nov 29, 2023 11:27 AM LR MICROBIOLOGY RE PORT: Reporting Lab: [facility] [CLIA# [id number]] [address] [place] [address] Accession [UID]: [id number] [[id number]] Received: Nov 30, 2023@19:53 Collection sample: URINE CLEAN CATCH Collection date: Nov 29, 2023 11:27 Site/Specimen: URINE Provider: CORBY OSORIO Test(s) ordered: CULTURE,URINE CLEAN CATCH..... completed: Dec 02, 2023 13:00 * BACTERIOLOGY FINAL REPORT => Dec 02, 2023 13:01 TECH CODE: [id number] Bacteriology Remark(s): 12/02/23 50,000-99,000 CFU/mL AT LEAST THREE BACTERIAL TYPES PRESENT INDICATING POSSIBLE CONTAMINATION, PLEASE REPEAT COLLECTION. =--=--=--=--=--=--=--=--=--=--= --=--=--=--=--=--=--=--=--=--=- -=--=--=--=--=-- Performing Laboratory: Bacteriology Report Performed By: [facility] [CLIA# [id number]] [address] [place] [address] [facility] Encounter Notes: All associated encounter notes This section contains the clinical notes associated to the Encounter. Date/Time Encounter Note(s) Provider Source Dec 13, 2023 07:19 AM NUTRITION DIETETIC S NOTE: LOCAL TITLE: Nutrition Follow-Up Note STANDARD TITLE: NUTRITION DIETETICS NOTE DATE OF NOTE: DEC 13, 2023@07:19 ENTRY DATE: DEC 13, 2023@07:19:23 AUTHOR: PURNIMA GANDHI EXP COSIGNER: URGENCY: STATUS: COMPLETED Nutrition Follow-Up Note Has [facility] [employer] NUTRITION COUNSELING Reason for initial nutrition consult: unintentional weight loss Last nutrition visit: 07/12/23 Time spent today: 15 minutes Dx: Z71.3 Dietary counseling and surveillance; z68.1 Body mass index [BMI] 19.9 or less, adult Assessment: Nutrition Goals from last visit: Food/nutrition related history outcomes 1. Pt willing to aim to increase to drinking two glasses of whole milk with [place] Breakfast Essentials per day --> reports only drinking one glass per day, ongoing 2. Pt will aim to consume > 75% of meals --> ongoing Anthropometric Measurement Outcomes 1. Prevent further weight loss and/or gradual weight gain --> goal not met, weight down ~3.7 lbs, ongoing Nutrition-Focused Physical Finding Outcomes 1. Prevent further fat/muscle loss --> ongoing Update since last visit: Spoke with pt today for nutrition follow up. - pt accompanied by today - states his intake has not changed - still minimal appetite - weight in office today: 121.3 lbs vs. 117 lbs on home scale - continues to skip lunch meal - only drinking one glass whole milk with CIB per day Recent Pertinent labs: HGB A1C: 5.6 (12/08/22 12:01) GLU: 100 (02/11/23 14:30) CHOL: 122 (12/08/22 12:01) HDL: 54 (12/08/22 12:01) LDL: 56 (12/08/22 12:01) TRI (12/08/22 12:01) ALB: 3.6 (12/08/22 12:01) Today's weight: 121.3 lbs in office on 12/13/23 (117 lbs on home scale) Weight last visit: 125 lb in office on 07/12/23 (states 120 lb on home scale) 112 lb [50.80 kg] (04/29/2023 07:39) 119.9 lb - in office on 03/29/23 Change in weight: down ~3 lbs NUTRITION-FOCUSED PHYSICAL EXAM/ASSESSMENT Note: difficult to accurately assess via TH; pt wearing loose fitting clothing today and only able to see shoulders and above on video visit Physical Assessment: Subcutaneous Fat Mass (orbital fat pads, triceps, chest) [X] Evidence of mildly/moderately altered body composition Describe: orbital fat pads Physical Assessment: Lean Muscle Mass (holiness, clavicle, shoulder, scapula, interosseous muscle, quadriceps, calf muscle) [X] Evidence of mildly/moderately altered body composition Describe: holiness Fluid Status: [X] Unable to observe Food Recall: B: blueberry muffin with whipped cream; carnation instant breakfast with whole milk L: continues to skip D: turkey breast, mashed potatoes with butter and gravy, cranberry sauce (other options: omelet with Belarusian muffin, peanut butter and honey) snack: another muffin - always eating dessert Lisa: mostly water STAGE OF CHANGE: []Pre-contemplation - no [...] loss in one month; pt reported consuming ~50% of normal intake Etiology: physiological/metabolic Intervention/Plan: Nutrition Prescription 1. Diet rx: Healthy Diet - encourage aiming for 2-3 meals per day with occasional snacks - encourage increasing to two glasses of whole milk with [place] Breakfast Essentials per day Nutrition Counseling 1. Reviewed weight trends and diet recall. Pt weight down ~3-4 lbs. Pt continues to skip lunch meal and reports poor appetite. Pt willing to increase to 2 glasses whole milk with CIB per day. Encourage pt to aim to have small portion/snack in the afternoon (ex: hardboiled egg; granola bar; handful of trail mix; etc). 2. Reviewed and updated SMART goals (below) Monitoring/Evaluation: Food/nutrition related history outcomes 1. Pt willing to aim to increase to drinking two glasses of whole milk with [place] Breakfast Essentials per day 2. Pt will aim to consume > 75% of meals Anthropometric Measurement Outcomes 1. Prevent further weight loss and/or gradual weight gain Nutrition-Focused Physical Finding Outcomes 1. Prevent further fat/muscle loss Recommended follow up: 3 months via - please reach out to pt to schedule date/time for follow up. Thank you /paris/ PURNIMA GANDHI RD,CD CLINICAL DIETITIAN Signed: 12/13/2023 15:10 Receipt Acknowledged By: 12/23/2023 10:12 /paris/ ADITI GARCIA [employer]bi Field Agent 12/23/2023 ADDENDUM STATUS: COMPLETED TW schedule 3 month f/u on MARCH 13, 2024 @ 2:00PM. Negotiated date and time with spouse. /paris/ ADITI GARCIA [employer] Fbi Field Agent Signed: 12/23/2023 10:13 PURNIMA GANDHI [facility]
--- OUTSIDE RECORDS SUMMARY | 2024-05-24 19:19 | XMS_ITS | Encounter Summary ---
Author Name [place] Address [address] [place] [address] Care Team Providers Care Grocery Checker Name Role Phone RON KYRA Primary Care [...] Name Patient's Relationship to Policy Ervin [facility] (WNR) MEDICARE ADVANTAGE [facility](W NR) * Aug 23, 2023 [id number] ANNALISA EDUARDO ITE PATIENT [facility] (WNR) MEDICARE ADVANTAGE [facility] (WNR) Aug 23, 2020 [id number] [phone] ANNALISA EDUARDO ITE PATIENT [facility] (WNR) MEDICARE ADVANTAGE [facility](W NR) Aug 23, 2012 [id number] ANNALISA EDUARDO ITE PATIENT Selected Encounter This section includes the information on record at [place] for the Encounter. Date/Time Encounter Type Encounter Description Reason Pro vider Source Dec 01, 2023 11:56 AM Outpatient Encounter COMMUNITY CARE CONSULT IHE [...] Appointment Type Appointme nt Facility Name Dec 10, 2023 02:00 PM AM[place]ORY [place] [facility] Dec 13, 2023 02:30 PM AMBULATORY - MEDICINE [facility] Dec 13, 2023 02:31 PM [place]ORY - [place]ONE [place] [facility] Dec 16, 2023 08:00 AM AMBULATORY [place] [facility] Dec 21, 2023 01:30 PM [place]ORY [place] [facility] Feb 21, 2024 10:15 AM [place]ATORY - NONE [place] [facility] Feb 21, 2024 11:00 AM [place]ORY - [place]ONE [place] [facility] Mar 18, 2024 12:01 AM [place]ORY [place] [facility] Apr 06, 2024 01:00 PM [place]ORY [place] [facility] Apr 06, 2024 01:00 PM AMBULATORY - MEDICINE [facility] Apr 10, 2024 01:30 PM AMBULATORY - MEDICINE [facility] Apr 10, 2024 01:31 PM [place]ORY [place]ONE [place] [facility] Apr 11, 2024 10:00 AM AMBULATORY - SURGERY [facility] Apr 11, 2024 10:01 AM AMBUL[place]ORY [place] [facility] Apr 21, 2024 10:30 AM AM[place]ULATORY - NONE [place] [facility] May 03, 2024 02:30 PM [place] [facility] May 04, 2024 10:30 AM [place] [facility] May 04, 2024 11:00 AM AMBULATORY [place] [facility] May 04, 2024 12:30 PM AM[place]ORY - NONE [place] [facility] May 04, 2024 01:00 PM AMBUL[place]ORY - [place]GERY [place] [facility] Lab Results: +/- 30 days [...] Nov 24, 2023 05:48 PM Reporting Lab: [facility] [address] [facility] [address] Performing Lab: [facility] [address] [facility] [address] URINE COLOR Light[place] NOT DEFINED SPECIFIC GRAVITY 1.013 1.003-1.030 UROBILINOGEN [...] 2021 02:27 PM CURRENT SMOKER REINIER Bhatia [facility] Tobacco Use History This section includes a history of the smoking, or tobacco-related health factors, that were collected on or before the date of the Encounter. The data comes from the [place] facility where the Encounter took place. Date/Time Smoking Status/Tobacco Use Comment F acility Jul 01, 2021 08:55 PM VA-VAAES TOBACCO U SE CURRENT NRT DECLINE [facility] Jul 01, 2021 02:41 PM CURRENT SMOKER REINIER GAYLE [facility] Dec 08, 2020 08:45 PM VA-TOBACCO USER EVERY DAY [facility] Dec 08, 2020 08:45 PM VA-VAAES TOBACCO U SE CURRENT NRT DECLINE [facility] Dec 08, 2020 06:58 PM VA-TOBACCO FORMER USER [facility] Apr 04, 2015 03:47 PM CURRENT SMOKER Less than a pack a day [facility] Apr 04, 2015 03:47 PM V1-PT NOT INTEREST ED IN QUIT TOBACCO USE [facility] Advance Directives: All historical and [...] Nov 18, 2017 ADVANCE DIRECTIVE RADHA FERNANDEZ [facility] Jul 08, 2017 ADVANCE DIRECTIVE DISCUSSION PURNIMA ROJAS [facility] Radiology Reports: +/- 30 days [...] 2023 11:15 AM UROGRAM RETROGRADE : GALINA EDUARDO [id number] -1945 M Ex Date: DEC 16, 2023@11:15 Req Phys: CORBY OSORIO QUIÑONES Pat Loc: [facility] G2RD (Req'g Img Loc: XRAY (OOS) Service: [place] [address] (Case [id number] COMPLETE) UROGRAM RETROGRADE (RAD Detailed) CPT:13068 Contrast Media : Non-ionic Iodinated Proc Modifiers : OPERATING ROOM EXAM Reason for Study: bilat ureteroscopy laser litho, stent placement Clinical History: calculus of kidney Report Status: Verified Date Reported: DEC 16, 2023 Date Verified: DEC 16, 2023 Medical Physics Teacher E-Sig:/PARIS/BENJAMÍN PIMENTEL Report: UROGRAM RETROGRADE 12/16/2023 11:15 AM Impression: Fluoroscopy performed during urology service procedure. FINDINGS: Procedure performed with the C-arm fluoroscopy . Fluoroscopy time 55 seconds, dose 9 mGy Fluoroscopic images consistent with history of bilateral ureteroscopy and stent placement. Labels from bilateral [employer] Contour double-J ureteral stents placed on the scanned worksheet Please see procedure note for further details. HISTORY: bilat ureteroscopy laser litho, stent placement, Primary Diagnostic Code: NO IMMEDIATE ATTENTION REQUIRED Primary Interpreting Staff: BENJAMÍN PIMENTEL, Staff Physician (Miah) /BENJAMÍN HYLTON [facility] Pathology Reports: +/- 30 days of [...] AM LR MICROBIOLOGY RE PORT: Reporting Lab: [facility] [CLIA# [id number]] [address] [place] [address] Accession [UID]: [id number] [[id number]] Received: Nov 30, 2023@19:53 Collection sample: URINE CLEAN CATCH Collection date: Nov 29, 2023 11:27 Site/Specimen: URINE Provider: CORBY OSORIO Test(s) ordered: CULTURE,URINE CLEAN CATCH..... completed: Dec 02, 2023 13:00 * BACTERIOLOGY FINAL REPORT => Dec 02, 2023 13:01 TECH CODE: [id number] Bacteriology Remark(s): 12/02/23 50,000-99,000 CFU/mL AT LEAST THREE BACTERIAL TYPES PRESENT INDICATING POSSIBLE CONTAMINATION, PLEASE REPEAT COLLECTION. =--=--=--=--=--=--=--=--=--=--= --=--=--=--=--=--=--=--=--=--=- -=--=--=--=--=-- Performing Laboratory: Bacteriology Report Performed By: [facility] [CLIA# [id number]] [address] [place] [address], [place] [address] [facility] Encounter Notes: All associated encounter notes This section contains the clinical notes associated to the Encounter. Date/Time Encounter Note(s) Provider Source Dec 01, 2023 11:56 AM LETTERS: LOCAL TITLE: [facility]-REQUEST FOR SERVICES (RFS) LETTER STANDARD TITLE: LETTERS DATE OF NOTE: DEC 01, 2023@11:56 ENTRY DATE: DEC 01, 2023@11:56:29 AUTHOR: KALE SANTOS EXP COSIGNER: URGENCY: STATUS: COMPLETED December 01, 2023 [facility] [place] Adan Navarrete [address] [place] [address] Dear Provider, [place] Information: Patient Name: Galina dEuardo Date of : 1945 [facility] Office of [facility] has received the request for [facility] from you for services that were not originally authorized in the [facility] Administration for this [place]. Upon review, the following determination has been made: Request is denied: Service will be provided by the [place] Medical Facility under the [facility] Provider's name. If you have sent this , via referral, to a sub-specialist for this care please notify the sub-specialty provider and the explaining that the [place] will not be covering the visit. Should you have questions, please contact us at [phone] to speak with a patient senior director creative services. As a reminder, if applicable, return medical records within 30 days for routine services. Sincerely, Kale Santos RN Clinical Painter [place] Office of [facility] [address] [facility] [place] [address] ext. [phone] KALE SANTOS [facility]
--- OUTSIDE RECORDS SUMMARY | 2024-05-24 19:19 | XMS_ITS | Encounter Summary ---
Author Name [facility] [facility] [place] [facility] [place] Address [address] [place] [address] Care Team Providers Care Second Hand Paper Machine Name Role Phone RON KYRA Primary Care [...] Name Patient's Relationship to Policy Ervin [facility] (WNR) MEDICARE [facility](W NR) * Aug 23, 2023 [id number] ANNALISA LOYD ITE PATIENT [facility] (WNR) MEDICARE ADVANTAGE [facility] (WNR) Aug 23, 2020 [id number] [phone] ANNALISA LOYD ITE PATIENT [facility] (WNR) MEDICARE ADVANTAGE [facility](W NR) Aug 23, 2012 [id number] ANNALISA LOYD ITE PATIENT Selected Encounter This section includes the information on record at [place] for the Encounter. Date/Time Encounter Type Encounter Description Reason Provider Source Dec 10, 2023 02:00 PM OFF/OP EST MAY X REQ PHY/QHP TELEPHONE/SURGERY ICD-10-CM Z01.818 Encounter for other preprocedural examination TIANNA CARR [facility] Encounter Template Text not used by [place] Assessments - Encounter Diagnoses This section includes the primary and secondary diagnoses documented for the Encounter. Date/Time Primary/Secondary Diagnosis Diagnosis Name Provider Source Dec 10, 2023 02:00 PM PRIMARY Encounter for other preprocedural examination TIANNA CARR [place] [facility] Plan of Treatment: Future Appointments (+ 6 months) and Future Tests (+/- 45 days) The Plan of Treatment section includes future care activities for the patient from all [place] treatmentfacilities. This section includes future appointments and future orders which are active, pending or scheduled. Future Appointments This section includes appointments that were scheduled to occur 6 months from the date of the Encounter, up to a maximum of 20 appointments. The data comes from all [place] treatment facilities. Appointment Date/Time Appointment Type Appointme nt Facility Name Dec 13, 2023 02:30 PM AMBULATORY - MEDICINE [facility] Dec 13, 2023 02:31 PM AM[place]ULATORY - [place]ONE [place] [facility]3] Dec 16, 2023 08:00 AM AMBULATORY [place] [facility]3] Dec 21, 2023 01:30 PM AMBULATORY [place] [facility]3] Feb 21, 2024 10:15 AM AMBULATORY - NONE [place] [facility]3] Feb 21, 2024 11:00 AM AMBULATORY - NONE [place] [facility]3] Mar 18, 2024 12:01 AM AMBULATORY - NONE [place] [facility]3] Apr 06, 2024 01:00 PM AMBULATORY - NONE [place] [facility]3] Apr 06, 2024 01:00 PM [facility] Apr 10, 2024 01:30 PM AMBULATORY - MEDICINE [facility] Apr 10, 2024 01:31 PM AMBULATORY - NONE [place] [facility]3] Apr 11, 2024 10:00 AM AMBULATORY - SURGERY [facility] Apr 11, 2024 10:01 AM AMBUL[place]ORY [place] [facility]3] Apr 21, 2024 10:30 AM AMBULATORY - NONE [place] [facility]3] May 03, 2024 02:30 PM AMBULATORY - SURGERY [facility] May 04, 2024 10:30 AM AMBULATORY - MEDICINE [place] [facility] May 04, 2024 11:00 AM AMBULATORY - SURGERY [facility] May 04, 2024 12:30 PM AMBULATORY - NONE [facility] [place] [facility] May 04, 2024 01:00 PM AMBULATORY - SURGERY [facility] May 08, 2024 02:30 PM AMBULATORY - MEDICINE [facility] Active, Pending, and Scheduled Orders This section includes a listing of several types of active, pending, and scheduled orders, including clinic medications orders, diagnostic test orders, procedure orders and consult orders; where the start date of the order is 45 days before the date of the Encounter or 45 days after the date of theEncounter. The data comes from all [place] treatment facilities. Test Date/Time Test Type Test Details Facility Name January 18, 2024 12:13 PM Consult Order COMMUNITY CARE-NEUROLOGY Cons Cyber Security Administrator's Choice [facility] Lab Results: +/- 30 days of the encounter This section includes the Chemistry and Hematology Lab Results on record with [place] for the patient. Radiology Reports and Pathology Reports are provided separately, in subsequent sections. Lab Results This section contains the Chemistry/Hematology Results that were resulted 30 days before or 30 daysafter the date of the Encounter. Date/Time Source Result Type Result - Unit Interpretation Reference Range Comment Nov 29, 2023 11:27 AM [facility] URINALYSIS W/REFLEX TO CULTURE Specimen Type: URINE No comment entered. Ordering Provider: MIRIAN OSORIO CH Report Released Date/Time: Nov 24, 2023 05:48 PM Reporting Lab: [facility] [address] [address] Performing Lab: [facility] [address] [address] URINE [place] NOT DEFINED SPECIFIC GRAVITY 1.013 1.003-1.030 UROBILINOGEN [...] and tobacco- related health factors from the [place] facility where the Encounter took place. Current Smoking Status This section includes the most current smoking, or tobacco-related health factor, from the [place] facility where the Encounter took place. Date/Time Current Smoking Status Comment Facil ity Jul 17, 2021 02:27 PM CURRENT SMOKER [facility] Tobacco Use History This section includes a history of the smoking, or tobacco-related health factors, that were collected on or before the date of the Encounter. The data comes from the [place] facility where the Encounter took place. Date/Time Smoking Status/Tobacco Use Comment F acility Jul 01, 2021 08:55 PM VA-VAAES TOBACCO U SE CURRENT NRT DECLINE [facility] Jul 01, 2021 02:41 PM CURRENT SMOKER REINIER Bhatia [facility] Dec 08, 2020 08:45 PM VA-TOBACCO USER EVERY DAY [facility] Dec 08, 2020 08:45 PM VA-VAAES TOBACCO U SE CURRENT NRT DECLINE [facility] Dec 08, 2020 06:58 PM VA-TOBACCO FORMER USER [facility] Apr 04, 2015 03:47 PM CURRENT SMOKER Less than a pack a day [facility] Apr 04, 2015 03:47 PM V1-PT NOT INTEREST ED IN QUIT TOBACCO USE [facility] Advance Directives: All historical and current Section Date Range: From patient's date of to the date document was created. This section includes ALL of a patient's completed or amended [place] Advance and Rescinded Directives. The entries below indicate that a directive exists for the patient, but an actual copy is not included with this document. The data comes from all [place] facilities. Date Advance Directives Provider Source Nov 18, 2017 ADVANCE DIRECTIVE RADHA FERNANDEZ [facility] Jul 08, 2017 ADVANCE DIRECTIVE DISCUSSION PURNIMA ROJAS [facility] Radiology Reports: +/- 30 days of [...] the Encounter. The data comes from all [place] treatment facilities. Date/Time Radiology Report Provider Source Dec 16, 2023 11:15 AM UROGRAM RETROGRADE : GALINA LOYD [id number] -1945 M Exm Date: DEC 16, 2023@11:15 Req Phys: CORBY OSORIO Pat Loc: [facility] G2RD (Req'g Img Loc: XRAY (OOS) Service: [place] [address] (Case [id number] COMPLETE) UROGRAM RETROGRADE (RAD Detailed) CPT:14617 Contrast Media : Non-ionic Iodinated Proc Modifiers : OPERATING ROOM EXAM Reason for Study: bilat ureteroscopy laser litho, stent placement Clinical History: calculus of kidney Report Status: Verified Date Reported: DEC 16, 2023 Date Verified: DEC 16, 2023 Expeller Worker E-Sig:/VIVIAN/BENJAMÍN PIMENTEL Report: UROGRAM RETROGRADE 12/16/2023 11:15 AM Impression: Fluoroscopy performed during urology service procedure. FINDINGS: Procedure performed with the C-arm fluoroscopy . Fluoroscopy time 55 seconds, dose 9 mGy Fluoroscopic images consistent with history of bilateral ureteroscopy and stent placement. Labels from bilateral [employer] Contour double-J ureteral stents placed on the scanned worksheet Please see procedure note for further details. HISTORY: bilat ureteroscopy laser litho, stent placement, Primary Diagnostic Code: NO IMMEDIATE ATTENTION REQUIRED Primary Interpreting Staff: BENJAMÍN PIMENTEL, Staff Physician (Expeller Worker) /BENJAMÍN HYLTON [facility] Pathology Reports: +/- 30 days of [...] the Encounter. The data comes from all [place] treatment facilities. Date/Time Pathology Report Provider Source Nov 29, 2023 11:27 AM LR MICROBIOLOGY RE PORT: Reporting Lab: [facility] [CLIA# [id number]] [address] [place] [address] Accession [UID]: [id number] [[id number]] Received: Nov 30, 2023@19:53 Collection sample: URINE CLEAN CATCH Collection date: Nov 29, 2023 11:27 Site/Specimen: URINE Provider: CORBY OSORIO Test(s) ordered: CULTURE,URINE CLEAN CATCH..... completed: Dec 02, 2023 13:00 * BACTERIOLOGY FINAL REPORT => Dec 02, 2023 13:01 TECH CODE: [id number] Bacteriology Remark(s): 12/02/23 50,000-99,000 CFU/mL AT LEAST THREE BACTERIAL TYPES PRESENT INDICATING POSSIBLE CONTAMINATION, PLEASE REPEAT COLLECTION. =--=--=--=--=--=--=--=--=--=--= --=--=--=--=--=--=--=--=--=--=- -=--=--=--=--=-- Performing Laboratory: Bacteriology Report Performed By: [facility] [CLIA# [id number]] [address] [place] [address] [facility] Encounter Notes: All associated encounter notes This section contains the clinical notes associated to the Encounter. Date/Time Encounter Note(s) Provider Source Dec 10, 2023 11:18 AM NURSING OUTPATIENT OPERATIVE NOTE: LOCAL TITLE: Same Day Nursing Progress Note STANDARD TITLE: NURSING OUTPATIENT OPERATIVE NOTE DATE OF NOTE: DEC 10, 2023@11:18 ENTRY DATE: DEC 10, 2023@11:18:58 AUTHOR: TIANNA CARR COSIGNER: URGENCY: STATUS: COMPLETED Same Day Nursing Health History Pre-op Visit PRE-OP TEACHING/VISIT Interview via:Telephone WITH SHE IS CAREGIVER Pre procedure Date: Nov Pts. Telephone #: Procedure Date: Nov Procedure: BRENDA. URETEROSCOPIES, LASER LITHOTRIPSY, STENT PLACEMENT (Same Day outpatient procedure) Diagnosis/Reason for Procedure: CALCULUS OF KIDNEY Notify in Emergency: Primary NOK: MARIE LOYD Relation: [address] [place], [place] [address] Secondary NOK: PASQUALE LOYD Relation: EXTENDED FAMILY M <street address not available> [place], [place] Responsible Adult [employer] Defence Guard: MARIE LOYD () Waiting at [facility]? TBA If no, Contact #: Are you riding with [employer] ([employer])? No (if Yes, alert Khurram Venegas via the pre-procedure consult to assure appropriate scheduling) A responsible adult is required and available at home for the immediate 24 hours following prodecure. Yes Who: MARIE LOYD () Surgeon/Proceduralist:JO Have you ever had Covid-19? YES, 08/16/23 In the last 10 DAYS, have you experienced any of the following symptoms? No symptoms OF: Fever or chills New or unexplained onset of cough, shortness of breath, or difficulty breathing New or unexplained loss of taste or smell, sore throat New or unexplained muscle aches, headaches, GI disturbances *Alert provider via additional signer for any affirmative answers. Encourage patient to test themselves prior to coming to the [facility]. COVID VACCINES: X3 Is the patient being admitted? No Time of last Food/Fluids: See flow sheet day of surgery Age: 78 Vital Signs:PER RECORD, WILL UDPATE OF DAY OF SURGERY Temperature:96.8 F [36.0 C] (11/04/2023 09:21) Blood Pressure: 105/64 (11/04/2023 09:21) Pulse: 56 (11/04/2023 09:21) Pulse Oximetry: PULSE OXIMETRY - NONE FOUND - 1M Respiration: 17 (11/04/2023 09:21) Height: 70 in [177.8 cm] (04/29/2023 07:39) Stated:70 Weight: 125 lb [56.70 kg] (07/12/2023 13:05) Stated:116 LBS Lung Sounds: N/A TELEPHONE INTERVIEW Heart Sounds: N/A TELEPHONE INTERVIEW Bladder Scan/PVR Result:N/A TELEPHONE INTERVIEW Distal Pulses:N/A TELEPHONE INTERVIEW Pain present? NO Location: N/A Pain Level: 0 Effective relief measures: TYLENOL Loose Teeth: No Dentures:NO Bridges:NO Glasses:YES, DISTANCE Hearing Aids:YES, BRENDA. HEARING (DOES NOT WEAR) Prosthesis/Implants: URETERAL STENTS BRENDA. Assist with ADLS: YES; OCC. BATHING, DRESSING PRN Living Will/Durable Power of Community Dietitian: YES Info. Given: NO Episcopal:CATHOLIC Mentation/Behavior: Awake,Alert,Oriented SUBSTANCE USE Current Alcohol Use: NO Former Alcohol Use: YES QUIT DATE/YEAR:2019;POST CVA Current Tobacco Use: YES AMOUNT:>1PPD NUMBER OF YEARS 60+ YRS Current Chewing Tobacco Use: NO Former Chewing Tobacco Use: NO Current Marijuana use: NO Former Marijuana use: NO Current Cocaine use: NO Former Cocaine use: NO Current Heroin use: NO Former Heroin use: NO Reproductions: Screening Patient has reproductive potential? (patient has a uterus, ovaries, is between 18-55, regardless of reversible contraception). No MEDICAL HISTORY: CALCULUS OF KIDNEY; S/P BRENDA. 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 NO INJURIES REPORTED POST STROKE EPILEPSY, FOLLOWED BY NEUROLOGIST H/O FALL FROM TIOLET 01/10/23; CRACKED L. 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 SLEEP APNEA Elimination Problems:CALCULUS OF KIDNEY, RENAL CYST, PROSTATE CANCER; S/P XRT, OCC. NOCTURIA, H/O UTI'S, IRREG. BM'S, (+) C-DIFF 01/2021, CONTIPATION Is there any Violence/Abuse (verbal/physical) in your life? NO Does the patient have any visible signs of trauma or bruising? NO SURGICAL HISTORY (previous surgery/anesthesia):(H/O POST-OP N/V POST STENT PLACEMENT) STONE EXTRACTION, LASER, STENT 10/21/23 ([facility] BILATERAL URETEROSCOPY STENT PLACEMENT - CYSTO/URETERO W/LITHOTRIPSY 04/29/2023 BILATERAL URETEROSCOPY AND BILATERAL STENT PLACEMENT 03/04/2023 BILATERAL URETEROSCOPY LASER LITHOTRIPSY STENT EXCHANGE 01/07/2023 BILATERAL URETEROSCOPY LASER LITHOTRIPSY STENT PLACEMENT 12/28/2022 CYSTOSCOPY/BILATERAL STENT PLACEMENT - 12/14/2022 BILATERAL URETEROSCOPY LASER LITHOTRIPSY STENT PLACEMENT 12/28/2022 CYSTOSCOPY/BILATERAL STENT PLACEMENT 12/14/2022 CYSTO/LITHOLAPAXY 07/29/2022 PROSTATE BX 11/23/19 BONE MARROW BX 12/11/15 US GUIDED RIGHT INGUINAL BIOPSY 12/09/15 KIDNEY STONE SURGERY 1960'S ? TESTICULALY SURGERY AGE 16 COLONOSCOPY CURRENT MEDICATIONS:PER Patient ([facility]) 1) ATORVASTATIN CALCIUM 40MG TAB TAKE TWO TABLET(S) BY MOUTH EVERY EVENING TO LOWER CHOLESTEROL 2) LACOSAMIDE 50MG TAB TAKE FOUR TABLETS BY MOUTH TWICE A DAY MAY TAKE AN EXTRA TWO TABLETS IF ANY UTI,FEVER, OR ANY SURGICAL PROCEDURE 3) LACTOBACILLUS COMBO TAB TAKE ONE TABLET BY MOUTH ONCE DAILY FOR GI 4) MELATONIN 3MG CAP/TAB TAKE ONE CAP/TAB BY MOUTH AT BEDTIME NEEDED FOR SLEEP(QPM) 5) NITROFURANTOIN MONO/MACRO 100MG SA CAP TAKE ONE CAPSULE BY MOUTH TWICE A DAY WITH MEALS TO PREVENT UTI - PLEASE START THIS MEDICATION THE MORNING OF WednesdayDECEMBER 09 IN PREPARATION FOR YOUR DECEMBER 15 UROLOGY PROCEDURE.(STARTED) 6) POTASSIUM CHLORIDE 10MEQ SA TAB TAKE ONE TABLET BY MOUTH EVERY MORNING WITH BREAKFAST TO SUPPLEMENT POTASSIUM 7) TAMSULOSIN HCL 0.4MG CAP TAKE ONE CAPSULE BY MOUTH TWICE A DAY 30 MINUTES AFTER THE SAME MEALTIME EACH DAY FOR PROSTATE/URINARY SYMPTOMS. (NON-VA) 8) VIT D DAILY 1000MG QOD MEDICATION LIST REVIEWED WITH ? Patient Current Medication Regimen is correct Changes in Medication status noted Any changes to medication list? ABOVE Does patient take any anti-coagulants? No Indicate last anti-coagulation dose taken: Information provider to patient : Verbal Patient given information on: Procedure to be performed Instructions REVIEWED on Preparing for your surgery Catheter care, urinary tract infection FAQ's sheet Reviewed with patient: The exact time of your surgery appointment cannot be determined until the day prior to your scheduled visit. At that time, you will receive a phone call after 2:30 PM and will be given the exact time you will need to arrive. Please disregard the generic 0800 appointment time in the system, unless this is verified by your nurse phone call Instructions: Nothing to eat: after midnight on :Nov Clear liquids until: 2 hours prior to your scheduled arrival time, Clear liquids include: water, sarika meng, apple/cranberry juice, black coffee or tea (no milk products) Appropriate medications to hold: NONE Appropriate medications to take: Routine a.m. meds No jewelry, makeup, powder or deodorant Bring a valid ID, insurance card No valuables/appropriate clothing Must have a responsible Adult [employer] All patient questions answered: Patient verbalizes understanding of Planned Procedure and Pre-op instructions given. Questions answered. 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
--- OUTSIDE RECORDS SUMMARY | 2024-05-24 19:19 | XMS_ITS | Encounter Summary ---
Author Name [facility] [place] Organization [place] Address [address] [place] [address] Care Team Providers Care Senior Supply Chain Analyst Name Role Phone RON KYRA Primary Care [...] to Policy Ervin [facility] (WNR) MEDICARE ADVANTAGE [facility](W NR) * Aug 23, 2023 [id number] [phone] ANNALISA LOYD ITE PATIENT [facility] (WNR) MEDICARE ADVANTAGE [facility] (WNR) Aug 23, 2020 [id number] [phone] ANNALISA LOYD ITE PATIENT [facility] (WNR) MEDICARE ADVANTAGE [facility](W NR) Aug 23, 2012 [id number] [phone] ANNALISA LOYD ITE PATIENT Selected Encounter This section includes the information on record at [place] for the Encounter. Date/Time Encounter Type Encounter Description Reason Pro vider Source Dec 01, 2023 12:00 PM Outpatient Encounter COMMUNITY CARE CONSULT IHE Encounter Template Text not used by VA Plan of Treatment: Future Appointments (+ 6 months) and Future Tests (+/- 45 days) The Plan of Treatment section includes future care activities for the patient from all [place] treatmentfacilities. This section includes future appointments and [...] AMBULATORY [place] [facility] Dec 13, 2023 02:30 PM AMBULATORY - MEDICINE [place] [facility] Dec 13, 2023 02:31 PM AM[place]ULATORY - [place]ONE [place] [facility] Dec 16, 2023 08:00 AM AMBULATORY [place] [facility] Dec 21, 2023 01:30 PM AMBULATORY - [place] [facility] Feb 21, 2024 10:15 AM AMBULATORY - NONE [place] [facility] Feb 21, 2024 11:00 AM AMBULATORY - NONE [place] [facility] Mar 18, 2024 12:01 AM AMBULATORY - NONE [place] [facility] Apr 06, 2024 01:00 PM AMBULATORY - NONE [place] [facility] Apr 06, 2024 01:00 PM AMBULATORY - MEDICINE [facility] Apr 10, 2024 01:30 PM AM[facility]ULATORY - MEDICINE [facility] Apr 10, 2024 01:31 PM AMBULATORY - NONE [place] [facility] Apr 11, 2024 10:00 AM AMBULATORY - SURGERY [facility] Apr 11, 2024 10:01 AM AM[place]UL[place]ORY [place] [facility] Apr 21, 2024 10:30 AM AMBULATORY - NONE [place] [facility] May 03, 2024 02:30 PM AMBULATORY [place] [facility] May 04, 2024 10:30 AM [place] [facility] May 04, 2024 11:00 AM AMBULATORY - [place] [facility] May 04, 2024 12:30 PM AMBULATORY - NONE [place] [facility] May 04, 2024 01:00 PM AMBULATORY - SURGERY [place] [facility] Lab Results: +/- 30 days of the encounter This section includes the Chemistry and Hematology Lab Results on record with MA for the patient. Radiology Reports and Pathology Reports are provided separately, in subsequent sections. Lab Results This section contains the Chemistry/Hematology Results that were resulted 30 days before or 30 daysafter the date of the Encounter. Date/Time Source Result Type Result - Unit Interpretation Reference Range Comment Nov 29, 2023 11:27 AM [facility] URINALYSIS W/REFLEX TO CULTURE Specimen Type: URINE No comment entered. Ordering Provider: MIRIAN OSORIO CH Report Released Date/Time: Nov 24, 2023 05:48 PM Reporting Lab: [facility] [address] [facility] [address] Performing Lab: [facility] [address] [facility] [address] URINE COLOR Light[place] NOT DEFINED SPECIFIC GRAVITY 1.013 1.003-1.030 UROBILINOGEN [...] 2021 02:27 PM CURRENT SMOKER REINIER Bhatia [facility] Tobacco Use History This section includes a history of the smoking, or tobacco-related health factors, that were collected on or before the date of the Encounter. The data comes from the [place] facility where the Encounter took place. Date/Time Smoking Status/Tobacco Use Comment F acility Jul 01, 2021 08:55 PM VA-VAAES TOBACCO U SE CURRENT NRT DECLINE [facility] Jul 01, 2021 02:41 PM CURRENT SMOKER REINIER GAYLE [facility] Dec 08, 2020 08:45 PM VA-TOBACCO USER EVERY DAY [facility] Dec 08, 2020 08:45 PM VA-VAAES TOBACCO U SE CURRENT NRT DECLINE [facility] Dec 08, 2020 06:58 PM VA-TOBACCO FORMER USER [facility] Apr 04, 2015 03:47 PM CURRENT SMOKER Less than a pack a day [facility] Apr 04, 2015 03:47 PM V1-PT NOT INTEREST ED IN QUIT TOBACCO USE [facility] Advance Directives: All historical [...] Nov 18, 2017 ADVANCE DIRECTIVE RADHA FERNANDEZ [facility] Jul 08, 2017 ADVANCE DIRECTIVE DISCUSSION PURNIMA ROJAS [facility] Radiology Reports: +/- 30 [...] 11:15 AM UROGRAM RETROGRADE : GALINA LOYD [id number] -1945 M Ex Date: DEC 16, 2023@11:15 Req Phys: CORBY OSORIO QUIÑONES Pat Loc: [facility] G2RD (Req'g Img Loc: XRAY (OOS) Service: Unknown [facility] [place] [address] (Case [id number] COMPLETE) UROGRAM RETROGRADE (RAD Detailed) CPT:97859 Contrast Media : Non-ionic Iodinated Proc Modifiers : OPERATING ROOM EXAM Reason for Study: bilat ureteroscopy laser litho, stent placement Clinical History: calculus of kidney Report Status: Verified Date Reported: DEC 16, 2023 Date Verified: DEC 16, 2023 Janitor Custodian E-Sig:/VIVIAN/BENJAMÍN PIMENTEL Report: UROGRAM RETROGRADE 12/16/2023 11:15 AM Impression: Fluoroscopy performed during urology service procedure. FINDINGS: Procedure performed with the C-arm fluoroscopy . Fluoroscopy time 55 seconds, dose 9 mGy Fluoroscopic images consistent with history of bilateral ureteroscopy and stent placement. Labels from bilateral [place] Contour double-J ureteral stents placed on the scanned worksheet Please see procedure note for further details. HISTORY: bilat ureteroscopy laser litho, stent placement, Primary Diagnostic Code: NO IMMEDIATE ATTENTION REQUIRED Primary Interpreting Staff: BENJAMÍN PIMENTEL, Staff Physician (Miah) /BENJAMÍN HYLTON [facility] Pathology Reports: +/- 30 days of the [...] comes from all [place] treatment facilities. Date/Time Pathology Report Provider Source Nov 29, 2023 11:27 AM LR MICROBIOLOGY RE PORT: Reporting Lab: [facility] [CLIA# [id number]] [address] [place] [address] Accession [UID]: [id number] [[id number]] Received: Nov 30, 2023@19:53 Collection sample: URINE CLEAN CATCH Collection date: Nov 29, 2023 11:27 Site/Specimen: URINE Provider: CORBY OSORIO Test(s) ordered: CULTURE,URINE CLEAN CATCH..... completed: Dec 02, 2023 13:00 * BACTERIOLOGY FINAL REPORT => Dec 02, 2023 13:01 TECH CODE: [id number] Bacteriology Remark(s): 12/02/23 50,000-99,000 CFU/mL AT LEAST THREE BACTERIAL TYPES PRESENT INDICATING POSSIBLE CONTAMINATION, PLEASE REPEAT COLLECTION. =--=--=--=--=--=--=--=--=--=--= --=--=--=--=--=--=--=--=--=--=- -=--=--=--=--=-- Performing Laboratory: Bacteriology Report Performed By: SONYA GAYLE Tobi [facility] [CLIA# [id number]] [address] [place] [facility] [address] [facility] Encounter Notes: All associated encounter notes This section contains the clinical notes associated to the Encounter. Date/Time Encounter Note(s) Provider Source Dec 01, 2023 12:00 PM NONVA NOTE: LOCAL TITLE: COMMUNITY CARE-REQUEST FOR SERVICE NOTE STANDARD TITLE: NONVA NOTE DATE OF NOTE: DEC 01, 2023@12:00 ENTRY DATE: DEC 01, 2023@08:21:07 AUTHOR: KALE WARREN EXP COSIGNER: URGENCY: STATUS: COMPLETED [facility] CARE-REQUEST FOR SERVICE NOTE Has ADDENDA VistA Imaging - Scanned Document Request for Community Care[place] [facility] [place] Navarre[place] ICD-10: N20.0, Calculus of kidney [place] recommended for diagnostic cystoureteroscopy with lithotripsy and insertion of indwelling ureteral stent See CT scan and supportive documentation in Image Viewer; uploaded to previous CC-Urology referral PCP: Please review and consider placing a consult for the above. If request for services is denied, please alert OCC RN SCANNED DOCUMENT SIGNATURE NOT REQUIRED Electronically Filed: 12/01/2023 by: KALE WARREN BA, RN CNOR Registered Nurse Receipt Acknowledged By: * AWAITING SIGNATURE * MICHAEL DESIR 12/01/2023 08:24 /vivian/ KYRA VELASQUEZ M.D 12/01/2023 ADDENDUM STATUS: COMPLETED please place requested [facility] urology /vivian/ KYRA VELASQUEZ M.D Signed: 12/01/2023 08:25 Receipt Acknowledged By: 12/01/2023 10:49 /vivian/ CAROLYN SAUNDERS RN 12/01/2023 ADDENDUM STATUS: COMPLETED Urology spoke with Veterans , is scheduled for procedure with MA at [facility]. RFS consult not entered. /huber SAUNDERS RN Signed: 12/01/2023 10:52 Receipt Acknowledged By: 12/01/2023 11:53 /vivian/ KALE WARREN BA, RN CNOR Registered Nurse 12/01/2023 ADDENDUM STATUS: COMPLETED Denial letter will be written and faxed to [facility] [place] advise that the [place] will receive this care at the [facility]. /vivian/ KALE WARREN BA, RN CNOR Registered Nurse Signed: 12/01/2023 11:54 KALE WARREN [facility] Dec 01, 2023 10:49 AM ADDENDUM: LOCAL TITLE: Addendum STANDARD TITLE: ADDENDUM DATE OF NOTE: DEC 01, 2023@10:49:33 ENTRY DATE: DEC 01, 2023@10:49:35 AUTHOR: CAROLYN SAUNDERS EXP COSIGNER: URGENCY: STATUS: COMPLETED Urology spoke with Veterans , is scheduled for procedure with VA at [facility]. RFS consult not entered. /huber SAUNDERS RN Signed: 12/01/2023 10:52 Receipt Acknowledged By: 12/01/2023 11:53 /vivian/ KALE WARREN BA, RN CNOR Registered Nurse --- Original Document --- 12/01/23 COMMUNITY CARE-REQUEST FOR SERVICE NOTE: VistA Imaging - Scanned Document Request for Community Care-Urology [place] [facility] [place] Adan Navarrete ICD-10: N20.0, Calculus of kidney [place] recommended for diagnostic cystoureteroscopy with lithotripsy and insertion of indwelling ureteral stent See CT scan and supportive documentation in Image Viewer; uploaded to previous CC-Urology referral PCP: Please review and consider placing a consult for the above. If request for services is denied, please alert OCC RN SCANNED DOCUMENT SIGNATURE NOT REQUIRED Electronically Filed: 12/01/2023 by: KALE WARREN BA, RN CNOR Registered Nurse Receipt Acknowledged By: * AWAITING SIGNATURE * MICHAEL DESIR Jeimy 12/01/2023 08:24 /vivian/ KYRA VELASQUEZ M.D 12/01/2023 ADDENDUM STATUS: COMPLETED please place requested [facility] /vivian/ KYRA VELASQUEZ M.D Signed: 12/01/2023 08:25 Receipt Acknowledged By: 12/01/2023 10:49 /huber SAUNDERS RN 12/01/2023 ADDENDUM STATUS: UNSIGNED You may not VIEW this UNSIGNED Addendum. CAROLYN SAUNDERS [facility] Dec 01, 2023 08:25 AM ADDENDUM: LOCAL TITLE: Addendum STANDARD TITLE: ADDENDUM DATE OF NOTE: DEC 01, 2023@08:25:04 ENTRY DATE: DEC 01, 2023@08:25:05 AUTHOR: KYRA VELASQUEZ COSIGNER: URGENCY: STATUS: COMPLETED please place requested [facility] urology /es/ KYRA VELASQUEZ M.D Signed: 12/01/2023 08:25 Receipt Acknowledged By: 12/01/2023 10:49 /huber SAUNDERS RN --- Original Document --- 12/01/23 COMMUNITY CARE-REQUEST FOR SERVICE NOTE: VistA Imaging - Scanned Document Request for Community Care-Urology [place] [facility] [place] Adan Navarrete ICD-10: N20.0, Calculus of kidney recommended for diagnostic cystoureteroscopy with lithotripsy and insertion of indwelling ureteral stent See CT scan and supportive documentation in Image Viewer; uploaded to previous CC-Urology referral PCP: Please review and consider placing a consult for the above. If request for services is denied, please alert OCC RN SCANNED DOCUMENT SIGNATURE NOT REQUIRED Electronically Filed: 12/01/2023 by: KALE WARREN BA, RN CNOR Registered Nurse Receipt Acknowledged By: * AWAITING SIGNATURE * MICHAEL DESIR 12/01/2023 08:24 /es/ KYRA VELASQUEZ M.D 12/01/2023 ADDENDUM STATUS: UNSIGNED You may not VIEW this UNSIGNED Addendum. KYRA VELASQUEZ [facility]
--- OUTSIDE RECORDS SUMMARY | 2024-05-24 19:19 | XMS_ITS ---
Author Name Department of Vetera Affairs ([place]) Organization [place] of [place] Address [address] [place] [address] Care Team Providers Care Web Site Designer Name Role Phone KYRA VELASQUEZ Primary Care [...] ADVANTAGE MCR(W NR) * Aug 23, 2023 [id number] [phone] ANNALISA LOYD ITE PATIENT [facility] (WNR) MEDICARE ADVANTAGE [facility] (WNR) Aug 23, 2020 [id number] [phone] ANNALISA LOYD ITE PATIENT [facility] (WNR) MEDICARE ADVANTAGE MCR(W NR) Aug 23, 2012 [id number] ANNALISA LOYD ITE PATIENT Selected Encounter This section includes the information on record at [place] for the Encounter. Date/Time Encounter Type Encounter Description Reason Pro vider Source Nov 15, 2023 09:27 AM Outpatient Encounter ADMIN PAT ACTIVTIES (MASNONCT) IHE Encounter Template Text not used by [place] Plan of Treatment: Future Appointments (+ 6 [...] SURGERY [place] [facility] Dec 13, 2023 02:30 PM AMBULATORY - MEDICINE [facility] Dec 13, 2023 02:31 PM AM[place]ULATORY - NONE [place] [facility] Dec 16, 2023 08:00 AM AMBULATORY - [place] [facility] Dec 21, 2023 01:30 [...] 06, 2024 01:00 PM AMBULATORY - MEDICINE [facility] Apr 10, 2024 01:30 PM AMBULATORY - MEDICINE [facility] Apr 10, 2024 01:31 PM [place]ATORY - [place]ONE [place] [facility] Apr 11, 2024 10:00 AM AMBULATORY - SURGERY [facility] Apr 11, 2024 10:01 AM AMBULATORY - [place] [facility] Apr 21, 2024 10:30 AM AM[place]ULATORY - [place]ONE [place] [facility] May 03, 2024 02:30 PM AMBULATORY - [place] [facility] May 04, 2024 10:30 AM [place] [facility] May 04, 2024 11:00 AM AMBULATORY - SURGERY [place] [facility] May 04, 2024 12:30 PM AM[place]ULATORY - NONE [place] [facility] Lab Results: +/- 30 days [...] Range Comment Nov 29, 2023 11:[address] [facility] URINALYSIS W/REFLEX TO CULTURE Specimen Type: URINE No comment entered. Ordering Provider: MIRIAN OSORIO CH Report Released Date/Time: Nov 24, 2023 05:48 PM Reporting Lab: [facility] [address] [facility] [address] Performing Lab: [facility] [address] [facility] [address] URINE COLOR Light-[place] NOT DEFINED SPECIFIC GRAVITY 1.013 1.003-1.030 UROBILINOGEN [...] 2021 02:27 PM CURRENT SMOKER REINIER GAYLE [facility] Tobacco Use History This section [...] 2021 02:41 PM CURRENT SMOKER REINIER GAYLE [facility] Dec 08, 2020 08:45 PM [...] & PELVIS WI THOUT CONTRAST: GALINA LOYD [id number] -1945 M Exm Date: OCT 22, 2023@04:45 Req Phys: TODD SANTAMARIA Pat Loc: OUTSIDE [facility] CT SCAN (Req'g Loc Img Loc: OUTSIDE [facility] CT SCAN Service: Unknown (Case [id number] COMPLETE) CT ABD & PELVIS WITHOUT CONTRAST (CT Detailed) CPT:85923 Reason for Study: Exam imported from outside Clinical History: Original Data for Imported Study Patient Name: GALINA LOYD Date: 1945 Sex: M Study Date: 10/22/23 Study Time: 04:45:59 Study Description: CT ABDOMEN AND PELVIS WO CONTRAST Referring Physician: JONN GUSTAFSON JR Series 1: 1 CT file, description: Lot Worker LAT Series 2: 1 CT file, description: Lot Worker AP Series 3: 1 CT file, description: Patient Protocol Series 4: 156 CT files, description: STD WO F_0.6 Series 5: 778 CT files, description: STD THN WO F_0.6 Series 6: 88 CT files, description: COR 3 WO F_0.6 Series 7: 115 CT files, description: SAG 3 WO F_0.6 Series 8: 2 [place] files, description: [id number] Series 9: 1 KO file, description: [id number] Report Status: Electronically Filed Date Reported: NOV 26, 2023 Report: RADIOLOGY PROCEDURE: N O T I C E: SCANNED IN EXAM THIS EXAMINATION WAS PERFORMED AND INTERPRETED AT A NON-PR FACILITY. To view the Images or report (if a report was included with the images), select the [employer] Tools Menu and choose the Image Display (Viewer) option. Impression: RADIOLOGY PROCEDURE: N O T I C E: SCANNED IN EXAM THIS EXAMINATION WAS PERFORMED AND INTERPRETED AT A NON-PR FACILITY. To view the Images or report (if a report was included with the images), select the [employer] Tools Menu and choose the Image Display (Viewer) option. VERIFIED BY: / *ELECTRONICALLY FILED* SONYA GAYLE Tobi [facility] Pathology Reports: +/- 30 days of [...] comes from all [place] treatment facilities. Date/Time Pathology Report Provider Source Nov 29, 2023 11:27 AM LR MICROBIOLOGY RE PORT: Reporting Lab: [facility] [CLIA# [id number]] [address] [place] [address] Accession [UID]: [id number] [[id number]] Received: Nov 30, 2023@19:53 Collection sample: URINE CLEAN CATCH Collection date: Nov 29, 2023 11:27 Site/Specimen: URINE Provider: CORBY OSORIO Test(s) ordered: CULTURE,URINE CLEAN CATCH..... completed: Dec 02, 2023 13:00 * BACTERIOLOGY FINAL REPORT => Dec 02, 2023 13:01 TECH CODE: [id number] Bacteriology Remark(s): 12/02/23 50,000-99,000 CFU/mL AT LEAST THREE BACTERIAL TYPES PRESENT INDICATING POSSIBLE CONTAMINATION, PLEASE REPEAT COLLECTION. =--=--=--=--=--=--=--=--=--=--= --=--=--=--=--=--=--=--=--=--=- -=--=--=--=--=-- Performing Laboratory: Bacteriology Report Performed By: SONYA [facility] [CLIA# [id number]] [address] [place] [address] [facility] Encounter Notes: All associated encounter notes This section contains the clinical notes associated to the Encounter. Date/Time Encounter Note(s) Provider Source Nov 26, 2023 11:49 AM ADDENDUM: LOCAL TITLE: Addendum STANDARD TITLE: ADDENDUM DATE OF NOTE: NOV 26, 2023@11:49:09 ENTRY DATE: NOV 26, 2023@11:49:10 AUTHOR: KYRA VELASQUEZ EXP COSIGNER: URGENCY: STATUS: COMPLETED please scan to chart /es/ KYRA VELASQUEZ M.D Signed: 11/26/2023 11:49 Receipt Acknowledged By: 11/26/2023 11:59 /vivian/ JENIFER SHANE [employer]S AND IMMIGRATION OFFICER --- Original Document --- 11/15/23 NonVA Medical Records: NONVA 11/15/2023 OFFICE V[facility] // ETIENNE WOOD Signed: 11/26/2023 09:29 Receipt Acknowledged By: 11/26/2023 11:49 /vivian/ Shamika GALDAMEZ MARY[place] [facility] Nov 15, 2023 09:27 AM NONVA NOTE: LOCAL TITLE: NonVA Medical Records STANDARD TITLE: NONVA NOTE DATE OF NOTE: NOV 15, 2023@09:27 ENTRY DATE: NOV 26, 2023@09:28:34 AUTHOR: ETIENNE WOOD EXP COSIGNER: URGENCY: STATUS: COMPLETED NonVA Medical Records Has ADDENDA NONVA 11/15/2023 OFFICE VISIT-FOLLICULAR [facility] /vivian/ ETIENNE WOOD Signed: 11/26/2023 09:29 Receipt Acknowledged By: 11/26/2023 11:49 /vivian/ KYRA VELASQUEZ M.D 11/26/2023 ADDENDUM STATUS: COMPLETED please scan to [facility] /vivian/ KYRA VELASQUEZ M.D Signed: 11/26/2023 11:49 Receipt Acknowledged By: * AWAITING SIGNATURE * JENIFER SHANE TARA L [place] [facility]
--- OUTSIDE RECORDS SUMMARY | 2024-05-24 19:19 | XMS_ITS | Encounter Summary ---
Author Name [facility] [place] Organization [place] Address [address] [place] [address] Care Team Providers Care Echocardiography Tech Name Role Phone RON KYRA Primary Care [...] - [facility] (WNR) MEDICARE ADVANTAGE [facility](W NR) * Aug 23, 2023 [id number] ANNALISA LOYD ITE PATIENT [facility] M[facility] (WNR) MEDICARE ADVANTAGE MCR (WNR) Aug 23, 2020 [id number] [phone] ANNALISA LOYD ITE PATIENT [facility] (WNR) MEDICARE ADVANTAGE [facility](W NR) Aug 23, 2012 [id number] [phone] ANNALISA LOYD ITE PATIENT Selected Encounter This section includes the information on record at [place] for the Encounter. Date/Time Encounter Type Encounter Description Reason Pro vider Source Oct 22, 2023 12:00 PM Outpatient Encounter COMMUNITY CARE CONSULT IHE Encounter Template Text not used by VA Plan of Treatment: Future Appointments (+ 6 months) and Future Tests (+/- 45 days) The Plan of Treatment section includes future care activities for the patient from all [place] treatmentfacilities. This section includes future appointments and [...] AM AMBULATORY - SURGERY [place] [facility] Nov 04, 2023 09:30 AM AMBULATORY - SURGERY [place] [facility] Nov 29, 2023 11:30 AM AMBULATORY - NONE [facility] Dec 10, 2023 02:00 PM AMBULATORY - SURGERY [place] [facility] Dec 13, 2023 02:30 PM AMBULATORY - MEDICINE [facility] Dec 13, 2023 02:31 PM AM[place]ULATORY - NONE [place] [facility] Dec 16, 2023 08:00 AM AMBULATORY - SURGERY [place] [facility] Dec 21, 2023 01:30 PM AMBULATORY - SURGERY [place] [facility] Feb 21, 2024 10:15 AM AMBULATORY - NONE [place] [facility] Feb 21, 2024 11:00 AM AMBULATORY - NONE [place] [facility] Mar 18, 2024 12:01 AM AMBULATORY - NONE [place] [facility] Apr 06, 2024 01:00 PM AMBULATORY - NONE [place] [facility] Apr 06, 2024 01:00 PM AMBULATORY - MEDICINE [facility] Apr 10, 2024 01:30 PM AMBULATORY - MEDICINE [facility] Apr 10, 2024 01:31 PM AMBULATORY - NONE [place] [facility] Apr 11, 2024 10:00 AM AMBULATORY - SURGERY [facility] Apr 11, 2024 10:01 AM AMBULATORY - SURGERY [place] [facility] Apr 21, 2024 10:30 AM AMBULATORY - NONE [place] [facility] Social History: Smoking Status (Most current) and [...] 2021 02:27 PM CURRENT SMOKER REINIER GAYLE [facility] Tobacco Use History This section includes a history of the smoking, or tobacco-related health factors, that were collected on or before the date of the Encounter. The data comes from the [place] facility where the Encounter took place. Date/Time Smoking Status/Tobacco Use Comment F acility Jul 01, 2021 08:55 PM VA-VAAES TOBACCO U SE CURRENT NRT DECLINE [facility] Jul 01, 2021 02:41 PM CURRENT SMOKER REINIER GAYLE [facility] Dec 08, 2020 08:45 PM VA-TOBACCO USER EVERY DAY [facility] Dec 08, 2020 08:45 PM VA-VAAES TOBACCO U SE CURRENT NRT DECLINE [facility] Dec 08, 2020 06:58 PM VA-TOBACCO FORMER USER [facility] Apr 04, 2015 03:47 PM CURRENT SMOKER Less than a pack a day [facility] Apr 04, 2015 03:47 PM V1-PT NOT INTEREST ED IN QUIT TOBACCO USE [facility] Advance Directives: All historical and [...] Nov 18, 2017 ADVANCE DIRECTIVE RADHA FERNANDEZ [facility] Jul 08, 2017 ADVANCE DIRECTIVE DISCUSSION PURNIMA ROJAS [facility] Radiology Reports: +/- [...] & PELVIS WI THOUT CONTRAST: GALINA LOYD [id number] -1945 M Exm Date: OCT 22, 2023@04:45 Req Phys: TODD SANTAMARIA Pat Loc: OUTSIDE [facility] SCAN (Req'g Loc Img Loc: OUTSIDE [facility] SCAN Service: Unknown (Case [id number] COMPLETE) CT ABD & PELVIS WITHOUT CONTRAST (CT Detailed) CPT:85370 Reason for Study: Exam imported from outside Clinical History: Original Data for Imported Study Patient Name: GALINA LOYD Date: 1945 Sex: M Study Date: 10/22/23 Study Time: 04:45:59 Study Description: CT ABDOMEN AND PELVIS WO CONTRAST Referring Physician: JONN NAVARRETE JR Series 1: 1 CT file, description: Corrections Unit Supervisor LAT Series 2: 1 CT file, description: Corrections Unit Supervisor AP Series 3: 1 CT file, description: Patient Protocol Series 4: 156 CT files, description: STD WO F_0.6 Series 5: 778 CT files, description: STD THN WO F_0.6 Series 6: 88 CT files, description: COR 3 WO F_0.6 Series 7: 115 CT files, description: SAG 3 WO F_0.6 Series 8: 2 MS files, description: [id number] Series 9: 1 KO file, description: [id number] Report Status: Electronically Filed Date Reported: NOV 26, 2023 Report: RADIOLOGY PROCEDURE: N O T I C E: SCANNED IN EXAM THIS EXAMINATION WAS PERFORMED AND INTERPRETED AT A NON-[place] FACILITY. To view the Images or report (if a report was included with the images), select the [employer] Tools Menu and choose the Image Display (Viewer) option. Impression: RADIOLOGY PROCEDURE: N O T I C E: SCANNED IN EXAM THIS EXAMINATION WAS PERFORMED AND INTERPRETED AT A NON[place] FACILITY. To view the Images or report (if a report was included with the images), select the [employer]S Tools Menu and choose the Image Display (Viewer) option. VERIFIED BY: / *ELECTRONICALLY FILED* SONYA GAYLE [facility] Encounter Notes: All associated encounter notes This section contains the clinical notes associated to the Encounter. Date/Time Encounter Note(s) Provider Source Oct 22, 2023 12:00 PM NONVA CONSULT: LOCAL TITLE: [facility] CONSULT RESULT NOTE STANDARD TITLE: NONVA CONSULT DATE OF NOTE: OCT 22, 2023@12:00 ENTRY DATE: DEC 01, 2023@08:23:45 AUTHOR: KALE WARREN EXP COSIGNER: URGENCY: STATUS: COMPLETED VistA Imaging - Scanned Document Consult / Referral: Apr 22 (c) [facility]-UROLOGY Cons Consult # [id number] Date of Service (Procedure/Event): 10/22/[address] Abdomen & Pelvis wo Contrast Reason for Imaging: nephrolithiasis s/p right PCNL to evaluate post-op stone burden Ordering Provider: Jonn Navarrete MD SCANNED DOCUMENT SIGNATURE NOT REQUIRED Electronically Filed: 12/01/2023 by: KALE WARREN BA, RN CNOR Registered Nurse KALE WARREN [facility]
--- OUTSIDE RECORDS SUMMARY | 2024-05-24 19:19 | XMS_ITS | Encounter Summary ---
Author Name [facility] [place] Address [address] [place] [address] Care Team Providers Care Lay Out Maker Name Role Phone KYRA VELASQUEZ Primary Care [...] Ervin's Name Patient's Relationship to Policy Ervin [facility] (WNR) MEDICARE ADVANTAGE [facility](W NR) * Aug 23, 2023 [id number] ANNALISA EDUARDO ITE PATIENT [facility] (WNR) MEDICARE ADVANTAGE [facility] (WNR) Aug 23, 2020 [id number] [phone] ANNALISA EDUARDO ITE PATIENT [facility] (WNR) MEDICARE ADVANTAGE [facility](W NR) Aug 23, 2012 [id number] ANNALISA EDUARDO ITE PATIENT Selected Encounter This section includes the information on record at [place] for the Encounter. Date/Time Encounter Type Encounter Description Reason Pro vider Source Nov 29, 2023 11:46 AM Outpatient Encounter PRIMARY CARE/MEDICINE IHE Encounter Template Text not used by VA Plan of Treatment: Future Appointments (+ 6 months) and Future Tests (+/- 45 days) The Plan of Treatment section includes future care activities for the patient from [facility] [place] [facility] This section includes future appointments and future orders which are active, pending or scheduled. Future Appointments This section includes appointments that were scheduled to occur 6 months from the date of the Encounter, up to a maximum of 20 appointments. The data comes from all [place] treatment facilities. Appointment Date/Time Appointment Type Appointme nt Facility Name Dec 10, 2023 02:00 PM AMBULATORY [place] [facility] Dec 13, 2023 02:30 PM AMBULATORY - MEDICINE [facility] Dec 13, 2023 02:31 PM AMBULATORY - N[place] [facility] Dec 16, 2023 08:00 AM AMBULATORY - SURG[place] [facility] Dec 21, 2023 01:30 PM AMBULATORY - [place] [facility] Feb 21, 2024 10:15 AM AMBULATORY - NONE [place] [facility] Feb 21, 2024 11:00 AM AMBULATORY - NONE [place] [facility] Mar 18, 2024 12:01 AM AMBULATORY - NONE [place] [facility] Apr 06, 2024 01:00 PM AMBULATORY - NONE [place] [facility] Apr 06, 2024 01:00 PM AMBULATORY - MEDICINE [facility] Apr 10, 2024 01:30 PM AMBULATORY - MEDICINE [facility] Apr 10, 2024 01:31 PM AMBULATORY - [place] [facility] Apr 11, 2024 10:00 AM AMBULATORY - SURGERY [facility] Apr 11, 2024 10:01 AM AMBULATORY [place] [facility] Apr 21, 2024 10:30 AM AMBULATORY - NONE [place] [facility] May 03, 2024 02:30 PM AMBULATORY [place] [facility] May 04, 2024 10:30 AM [place] [facility] May 04, 2024 11:00 AM AMBULATORY [place] [facility] May 04, 2024 12:30 PM AMBULATORY - [place] [facility] May 04, 2024 01:00 PM AMBUL[place]ORY [place]GERY [place] [facility] Lab Results: +/- 30 days of the encounter This section includes the Chemistry and Hematology Lab Results on record with [place] for the patient. Radiology Reports and Pathology Reports are provided separately, in subsequent sections. Lab Results This section contains the Chemistry/Hematology Results that were resulted 30 days before or 30 daysafter the date of the Encounter. Date/Time Source Result Type Result - Unit Interpretation Reference Range Comment Nov 29, 2023 11:27 AM [facility] URINALYSIS W/REFLEX TO CULTURE Specimen Type: URINE No comment entered. Ordering Provider: MIRIAN OSORIO CH Report Released Date/Time: Nov 24, 2023 05:48 PM Reporting Lab: [facility] [address] [facility] [address] Performing Lab: [facility] [address] [facility] [facility] [address] URINE [place] NOT DEFINED SPECIFIC GRAVITY 1.013 1.003-1.030 UROBILINOGEN [...] and tobacco- related health factors from the [place] facility where the Encounter took place. Current Smoking Status This section includes the most current smoking, or tobacco-related health factor, from the [place] facility where the Encounter took place. Date/Time Current Smoking Status Comment Nataly ity Jul 17, 2021 02:27 PM CURRENT SMOKER REINIER Bhatia [facility] Tobacco Use History This section includes a history of the smoking, or tobacco-related health factors, that were collected on or before the date of the Encounter. The data comes from the [place] facility where the Encounter took place. Date/Time Smoking Status/Tobacco Use Comment F acility Jul 01, 2021 08:55 PM VA-VAAES TOBACCO U SE CURRENT NRT DECLINE [facility] Jul 01, 2021 02:41 PM CURRENT SMOKER RE[facility]IER [facility] Dec 08, 2020 08:45 PM VA-TOBACCO USER EVERY DAY [facility] Dec 08, 2020 08:45 PM VA-VAAES TOBACCO U SE CURRENT NRT DECLINE [facility] Dec 08, 2020 06:58 PM VA-TOBACCO FORMER USER [facility] Apr 04, 2015 03:47 PM CURRENT SMOKER Less than a pack a day [facility] Apr 04, 2015 03:47 PM V1-PT NOT INTEREST ED IN QUIT TOBACCO USE [facility] Advance Directives: All historical and current Section Date Range: From patient's date of to the date document was created. This section includes ALL of a patient's completed or amended [place] Advance and Rescinded Directives. The entries below indicate that a directive exists for the patient, but an actual copy is not included with this document. The data comes from all [place] facilities. Date Advance Directives Provider Source Nov 18, 2017 ADVANCE DIRECTIVE RADHA FERNANDEZ [facility] Jul 08, 2017 ADVANCE DIRECTIVE DISCUSSION PURNIMA ROJAS [facility] Radiology Reports: +/- 30 days [...] the Encounter. The data comes from all [place] treatment facilities. Date/Time Radiology Report Provider Source Dec 16, 2023 11:15 AM UROGRAM RETROGRADE : GALINA EDUARDO [id number] -1945 M Ex Date: DEC 16, 2023@11:15 Req Phys: AYOFOOT,CORBY QUIÑONES Pat Loc: [facility] GENER[facility] G2RD (Req'g Img Loc: XRAY (OOS) Service: [place] [address] (Case [id number] COMPLETE) UROGRAM RETROGRADE (RAD Detailed) CPT:12639 Contrast Media : Non-ionic Iodinated Proc Modifiers : OPERATING ROOM EXAM Reason for Study: bilat ureteroscopy laser litho, stent placement Clinical History: calculus of kidney Report Status: Verified Date Reported: DEC 16, 2023 Date Verified: DEC 16, 2023 Program Director/Music Director E-Sig:/PARIS/BENJAMÍN PIMENTEL Report: UROGRAM RETROGRADE 12/16/2023 11:15 AM Impression: Fluoroscopy performed during urology service procedure. FINDINGS: Procedure performed with the C-arm fluoroscopy . Fluoroscopy time 55 seconds, dose 9 mGy Fluoroscopic images consistent with history of bilateral ureteroscopy and stent placement. Labels from bilateral [employer] Contour double-J ureteral stents placed on the scanned worksheet Please see procedure note for further details. HISTORY: bilat ureteroscopy laser litho, stent placement, Primary Diagnostic Code: NO IMMEDIATE ATTENTION REQUIRED Primary Interpreting Staff: BENJAMÍN PIMENTEL, Staff Physician (Miah) /BENJAMÍN HYLTON [facility] Pathology Reports: +/- 30 days of [...] the Encounter. The data comes from all [place] treatment facilities. Date/Time Pathology Report Provider Source Nov 29, 2023 11:27 AM LR MICROBIOLOGY RE PORT: Reporting Lab: [facility] [CLIA# [id number]] [address] [place] [address] Accession [UID]: [id number] [[id number]] Received: Nov 30, 2023@19:53 Collection sample: URINE CLEAN CATCH Collection date: Nov 29, 2023 11:27 Site/Specimen: URINE Provider: CORBY OSORIO Test(s) ordered: CULTURE,URINE CLEAN CATCH..... completed: Dec 02, 2023 13:00 * BACTERIOLOGY FINAL REPORT => Dec 02, 2023 13:01 TECH CODE: [id number] Bacteriology Remark(s): 12/02/23 50,000-99,000 CFU/mL AT LEAST THREE BACTERIAL TYPES PRESENT INDICATING POSSIBLE CONTAMINATION, PLEASE REPEAT COLLECTION. =--=--=--=--=--=--=--=--=--=--= --=--=--=--=--=--=--=--=--=--=- -=--=--=--=--=-- Performing Laboratory: Bacteriology Report Performed By: SONYA PINON [facility] [CLIA# [id number]] [address] [place] [address] [facility] Encounter Notes: All associated encounter notes This section contains the clinical notes associated to the Encounter. Date/Time Encounter Note(s) Provider Source Nov 15, 2023 11:46 AM HEMATOLOGY AND ONC OLOGY NONVA NOTE: LOCAL TITLE: NonVA Oncology STANDARD TITLE: HEMATOLOGY AND ONCOLOGY NONVA NOTE DATE OF NOTE: NOV 15, 2023@11:46 ENTRY DATE: NOV 29, 2023@11:46:25 AUTHOR: JENIFER SHANEIGNER: URGENCY: STATUS: COM[place] [address] [phone] Galina Eduardo is being seen for the evaluation of follicular lymphoma. Assessment & Plan: Galina Eduardo is a 78 y.o. male patient with a PMH of an abdominal aortic aneurysm, thoracic aortic aneurysm, hypertension, prior alcohol abuse, tobacco abuse, a stroke in early 2019 and follicular lymphoma who completed EBRT for localized prostate cancer 04/2020 who wishes to followup here in [facility] for his [place] rather than [place] the [place] given the [place]. He was last treated for his follicular lymphoma back in 2016 as detailed below. He is aware that it is unlikely that he is cured but that he does appear to be in continued remission. His most recent labs are reviewed and unremarkable. His most recent imaging from November 2019 does not indicate any adenopathy at that time. Clinically he seems to be stable and has not adenopathy on exam.. We discussed signs and symptoms to be aware of that might indicate recurrence or progression of his follicular lymphoma. Discussed that should it come back there are treatment options that would still be available he can consider. We will plan to continue to follow him annually with labs. We will not plan further imaging unless there are any clinical changes. He would prefer to continue follow up with [facility] opposed to the [facility]. Plan: - Labs CBC/CMP/LDH locally with followup in 1 year. We remain available to assist sooner should any changes arise Accompanied by his . Weight is down a couple lbs but overall stable. He has had some recent issues with kidney stones requiring stent placement. Chronically low energy. 1 smoking ppd-not interested quitted. No fever or infection over the past Not drinking. No lumps or bumps or adenopathy that he has noted. No nocturia uses depends at night. Doesn't urinate much during the day and think he doesn't hydrate enough. Oncology Overview: # Follicular Lymphoma Presented with c/o right flank mass that he had noted on February 22 2015, about 3 weeks prior to the appointment with his Primary Care provider. The mass was not painful, and he did not have weight loss, frequent infections, profound fatigue, or F/C/sweats. [place] by Dr. Martha Castañeda - PET-CT 11/26/15 showed progression - biopsy 12/09/15 returned follicular NHL - Cl D1 R-CVP 01/14/16 - C2 02/04/16 - C3 02/25/16 - CT C/A/P 03/17/16 indicated some improvement in lymphadenopathy - C4 03/31/16 - C5 04/21/16 - C6 05/12/16 - 06/02/16 CT C/A/P showed almost complete resolution of lymphadenopathy - 06/16/16 C7 consolidation cycle - CT 12/22/16 showed no evidence of recurrence - CT 06/23/17 showed no evidence of recurrence - CT 12/16/17 showed no evidence of recurrence # Prostate Cancer Stage IIC (cTlc, cN0, cM0, PSA: 12.9, Grade Group: 3) Treated with EBRT (he opted to not receive ADT) at [facility] with Dr. Evans 02/26-04/26/20 97.2 Gy in 44 fractions 11/15/23 PSA 0.22 WBC 12.08, H/H 13.2/40.9, pIt 242, ANC 92889, Ca 9.3, Glucose 157, BUN 12, Creat 1.0, t protein 6.9, albumin 3.1, t bili 0.3, alk phos 120, Na 141, K 3.9, Cl 103, CO2 32.3, LDH 117, AST 12, ALT 16 /es/ JENIFER SHANE STAPLER HAND Signed: 11/29/2023 11:50 Receipt Acknowledged By: 11/29/2023 12:47 /es/ Shamika GALDAMEZ [facility]
--- OUTSIDE RECORDS SUMMARY | 2024-05-24 19:19 | XMS_ITS ---
Author Name [facility] [place] [place] [facility] [place] Address [address] [place] [address] Care Team Providers Care Fence Installer Helper Name Role Phone RONKATHARINEKYRA Primary Care Provider Unavailabl e Insurance Providers: [...] Name Patient's Relationship to Policy Ervin [facility] (WNR) MEDICARE ADVANTAGE [facility](W NR) * Aug 23, 2023 [id number] ANNALISA LOYD ITE PATIENT [facility] MCR (WNR) MEDICARE ADVANTAGE [facility] (WNR) Aug 23, 2020 [id number] [phone] ANNALISA LOYD ITE PATIENT [facility] MCR (WNR) MEDICARE ADVANTAGE [facility](W NR) Aug 23, 2012 [id number] ANNALISA LOYD ITE PATIENT Selected Encounter This section includes the information on record at [place] for the Encounter. Date/Time Encounter Type Encounter Description Reason Pro vider Source Nov 23, 2023 12:37 PM Outpatient Encounter TELEPHONE/SURGERY IHE Encounter Template Text not used by [facility] Plan of Treatment: Future Appointments (+ 6 months) and Future Tests (+/- 45 days) The Plan of Treatment section includes future care activities for the patient from all [place] treatmentfacilities. This section includes future appointments and [...] 29, 2023 11:30 AM AMBULATORY - NONE [facility] Dec 10, 2023 02:00 PM AMBULATORY [place] [facility] Dec 13, 2023 02:30 PM AMBULATORY - MEDICINE [facility] Dec 13, 2023 02:31 PM [place]ORY - [place] [facility] Dec 16, 2023 08:00 AM AMBULATORY [place] [facility] Dec 21, 2023 01:30 PM [place]BULATORY - [place] [facility] Feb 21, 2024 10:15 AM AMBULATORY - [place] [facility] Feb 21, 2024 11:00 AM AMBULATORY - [place]ONE [place] [facility] Mar 18, 2024 12:01 AM AMBULATORY - [place] [facility] Apr 06, 2024 01:00 PM [place]ATORY - [place]ONE [place] [facility] Apr 06, 2024 01:00 PM AMBULATORY - MEDICINE [facility] Apr 10, 2024 01:30 PM AMBULATORY - MEDICINE [facility] Apr 10, 2024 01:31 PM [place]ORY - [place] [facility] Apr 11, 2024 10:00 AM AMBULATORY - SURGERY [facility] Apr 11, 2024 10:01 AM [place]BUL[place]ORY [place] [facility] Apr 21, 2024 10:30 AM AMBULATORY - [place]ONE [place] [facility] May 03, 2024 02:30 PM AMBUL[place]ORY [place] [facility] May 04, 2024 10:30 AM [place] [facility] May 04, 2024 11:00 AM AMBULATORY - [place] [facility] May 04, 2024 12:30 PM AMBULATORY [...] Range Comment Nov 29, 2023 11:27 AM [facility] URINALYSIS W/REFLEX TO CULTURE Specimen Type: URINE No comment entered. Ordering Provider: MIRIAN ROBERSON CH Report Released Date/Time: Nov 24, 2023 05:48 PM Reporting Lab: [facility] [address] [address] Performing Lab: [facility] [address] [address] URINE COLOR Light-[place] NOT DEFINED SPECIFIC GRAVITY 1.013 1.003-1.030 UROBILINOGEN [...] PM CURRENT SMOKER REINIER GAYLE [facility] Tobacco Use History This section includes [...] PM CURRENT SMOKER REINIER GAYLE [facility] Dec 08, 2020 08:45 PM VA-TOBACCO [...] this document. The data comes from all [place] facilities. Date Advance Directives Provider Source Nov [...] 16, 2023 11:15 AM UROGRAM RETROGRADE : EVERTGALINA SHIELDS [id number] -1945 M Exm Date: DEC 16, 2023@11:15 Req Phys: KERFOOT,CORBY QUIÑONES Pat Loc: [facility] G[facility] (Req'g Img Loc: XRAY (OOS) Service: [place] [address] (Case [id number] COMPLETE) UROGRAM RETROGRADE (RAD Detailed) CPT:95932 Contrast Media : Non-ionic Iodinated Proc Modifiers : OPERATING ROOM EXAM Reason for Study: bilat ureteroscopy laser litho, stent placement Clinical History: calculus of kidney Report Status: Verified Date Reported: DEC 16, 2023 Date Verified: DEC 16, 2023 Metal Wire Coating Operator E-Sig:/VIVIAN/BENJAMÍN PIMENTEL Report: UROGRAM RETROGRADE 12/16/2023 11:15 AM Impression: Fluoroscopy performed during urology service procedure. FINDINGS: Procedure performed with the C-arm fluoroscopy . Fluoroscopy time 55 seconds, dose 9 mGy Fluoroscopic images consistent with history of bilateral ureteroscopy and stent placement. Labels from bilateral [facility] Contour double-J ureteral stents placed on the scanned worksheet Please see procedure note for further details. HISTORY: bilat ureteroscopy laser litho, stent placement, Primary Diagnostic Code: NO IMMEDIATE ATTENTION REQUIRED Primary Interpreting Staff: BENJAMÍN PIMENTEL, Staff Physician (Miah) /BENJAMÍN HYLTON [facility] Pathology [...] comes from all [place] treatment facilities. Date/Time Pathology Report Provider Source Nov 29, 2023 11:27 AM LR MICROBIOLOGY RE PORT: Reporting Lab: [facility] [CLIA# [id number]] [address] [place] [address] Accession [UID]: [id number] [[id number]] Received: Nov 30, 2023@19:53 Collection sample: URINE CLEAN CATCH Collection date: Nov 29, 2023 11:27 Site/Specimen: URINE Provider: CORBY ROBERSON Test(s) ordered: CULTURE,URINE CLEAN CATCH..... completed: Dec 02, 2023 13:00 * BACTERIOLOGY FINAL REPORT => Dec 02, 2023 13:01 TECH CODE: [id number] Bacteriology Remark(s): 12/02/23 50,000-99,000 CFU/mL AT LEAST THREE BACTERIAL TYPES PRESENT INDICATING POSSIBLE CONTAMINATION, PLEASE REPEAT COLLECTION. =--=--=--=--=--=--=--=--=--=--= --=--=--=--=--=--=--=--=--=--=- -=--=--=--=--=-- Performing Laboratory: Bacteriology Report Performed By: SONYA GAYLE Tobi [facility] [CLIA# [id number]] [address] [facility] [place] [address] [facility] Encounter Notes: All associated encounter notes This section contains the clinical notes associated to the Encounter. Date/Time Encounter Note(s) Provider Source Nov 23, 2023 12:37 PM ADMINISTRATIVE NOT E: LOCAL TITLE: Administrative Note/Urology STANDARD TITLE: ADMINISTRATIVE NOTE DATE OF NOTE: NOV 23, 2023@12:37 ENTRY DATE: NOV 23, 2023@12:37:22 AUTHOR: RAMAKRISHNA AU EXP COSIGNER: URGENCY: STATUS: COMPLETED Administrative Note/Urology Has ADDENDA Note from Dr. Navarrete, clarifying the following history: [Also note most recent summary of multiple bilateral procedures for substantial stone burden as outlined in Sep 15, 2023, urology note.] [facility] care consult was placed on Apr 22, 2023. 05/24/23: seen at [facility] 08/05/23 : bilateral URS at [facility] with Tria stent, plan for R PCNL on 10/21/23. 10/21/23: R PCNL for right staghorn cleared with exception of a 3mm fragment seen on postop CT. We also began a left ureteroscopy at the time of right PCNL, removed some left renal stone with known residual stones for planned 2nd look URS. Postop CT had 3mm right upper pole residual stone as well as several small left renal stones. He had elected to proceed with bilateral ureteroscopy to try to clear both sides of any residual fragments. I would imagine that this could absolutely be done at the [place]. He has a 6 variable length stent on the right and a 8fr 26cm Left Tria stent, with likely little [stone left on the] right and at least a 1 cm stone on left from my recollection. Givent that OCC consult has and the only remaining procedure that is needed is completion bilateral URS, I agree that we can do this at the [facility]. Dr. Roberson: Could you please reach out to the [place] and get him back [place] our [place] the [place] for [place] bilateral URS? MAYA Boyce: could you please obtain postop CT scan from [facility] (likely dated 10/22/23) for upload onto our PACS? Thanks! /huber AU Agriculture Laboratory Technician, Urology Signed: 11/23/2023 12:44 Receipt Acknowledged By: 11/23/2023 13:28 /vivian/ Rosina TOBAR, MAYA 11/24/2023 17:53 /vivian/ Pb ROBERSON MD Staff Surgeon, Urology 11/23/2023 ADDENDUM STATUS: COMPLETED Request for CT scan results from [facility] sent 11/23/23. /vivian/ Rosina TOBAR, MAYA Signed: 11/23/2023 13:44 11/24/2023 ADDENDUM STATUS: COMPLETED I spoke with the patient's who confirmed that they wanted to schedule the bilateral ureteroscopy. We agreed on December 15. He will get a UA UCx at [facility] next week. Orders and OR consult placed. /vivian/ Pb ROBERSON MD Staff Surgeon, Urology Signed: 11/24/2023 17:54 12/01/2023 ADDENDUM STATUS: COMPLETED Results relayed to patient by phone. 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 We agreed to pre-rx with nitrofurantoin x7d prior to the case to reduce his colony counts and reduce the risk of infection from the surgery. Order placed. Specimen Collection Date: Nov 29, 2023@11:27 Test name Result units Ref. range Site Code MICROSCOPIC-iQ Completed [405] URINE COLOR Light-[place] CLARITY CLOUDY Ref: NOT DEFINED [405] SPECIFIC GRAVITY 1.013 1.003 - 1.030 [405] URINE PH 6.5 5 - 8 [405] PROTEIN, URINE 100 mg/dL Ref: NEG [405] URINE GLUCOSE 50 mg/dL Ref: NEG [405] URINE KETONES NEG mg/dL Ref: NEG [405] URINE BILIRUBIN NEG Ref: NEG [405] URINE BLOOD LG Ref: NEG [405] UROBILINOGEN <2.0 mg/dL Ref: <2.0 [405] NITRITE, URINE NEG Ref: NEG [405] WBC SCREEN LG Ref: NEG [405] RED BLOOD CELL/URINE >182 H /HPF 0 - 2 [405] WHITE BLOOD CELL/URINE >182 H /HPF 0 - 5 [405] WHITE BLOOD CELL CLUMP MANY graded/HPF Ref: NONE [405] BACTERIA/URINE FEW graded/HPF Ref: NONE [405] MUCOUS/URINE FEW graded/LPF Ref: NONE [405] ---- MICROBIOLOGY ---- Test(s) ordered: CULTURE,URINE CLEAN CATCH..... completed: Dec 02, 2023 * BACTERIOLOGY FINAL REPORT => Dec 02, 2023 13:01 TECH CODE: [id number] Bacteriology Remark(s): 12/02/23 50,000-99,000 CFU/mL AT LEAST THREE BACTERIAL TYPES PRESENT INDICATING POSSIBLE CONTAMINATION, PLEASE REPEAT COLLECTION. /vivian/ Pb ROBERSON MD Staff Surgeon, Urology Signed: 12/02/2023 15:21 RAMAKRISHNA AU [facility]
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
--- OUTSIDE RECORDS SUMMARY | 2024-05-24 19:20 | XMS_ITS | Encounter Summary ---
Author Name [facility] [place] Organization [place] Address [address] [place] [address] Care Team Providers Care Tape Recorder Mechanic Name Role Phone KYRA VELASQUEZ Primary Care [...] Name Patient's Relationship to Policy Ervin [facility] (WNR) MEDICARE [facility](W NR) * Aug 23, 2023 [id number] ANNALISA LOYD ITE PATIENT [facility] (WNR) MEDICARE ADVANTAGE [facility] (WNR) Aug 23, 2020 [id number] [phone] ANNALISA LOYD ITE PATIENT [facility] (WNR) MEDICARE [facility](W NR) Aug 23, 2012 [id number] [phone] ANNALISA LOYD ITE PATIENT Selected Encounter This section includes the information on record at [place] for the Encounter. Date/Time Encounter Type Encounter Description Reason Provider Source Dec 16, 2023 04:35 PM Outpatient Encounter ADMIN PAT ACTIVTIES (MASNONCT) HILARIO RIGGSFELIX Luna Jannette Encounter Template Text not used by [place] Plan of Treatment: Future Appointments (+ 6 months) and Future Tests (+/- 45 days) The Plan of Treatment section includes future care activities for the patient from all [place] treatmentfacritical access hospitalities. This section includes future appointments and future orders which are active, pending or scheduled. Future Appointments This section includes appointments that were scheduled to occur 6 months from the date of the Encounter, up to a maximum of 20 appointments. The data comes from all [place] treatment facilities. Appointment Date/Time Appointment Type Appointme nt Facility Name Dec 21, 2023 01:30 PM AMBULATORY - [place] [facility] Feb 21, 2024 10:15 AM AMBULATORY - NONE [place] [facility] Feb 21, 2024 11:00 AM AMBULATORY - NONE [place] [facility] Mar 18, 2024 12:01 AM AMBULATORY - NONE [place] [facility] [facility] Apr 06, 2024 01:00 PM AMBULATORY - NONE [place] [facility] [facility] Apr 06, 2024 01:00 PM AMBULATORY - MEDICINE [facility] Apr 10, 2024 01:30 PM AMBULATORY - MEDICINE [facility] Apr 10, 2024 01:31 PM AMBULATORY - NONE [place] [facility] Apr 11, 2024 10:00 AM AMBULATORY - SURGERY [facility] Apr 11, 2024 10:01 AM AMBULATORY - SURGERY [facility] Apr 21, 2024 10:30 AM AMBULATORY - NONE [place] [facility] May 03, 2024 02:30 PM AMBULATORY - SURGERY [place] [place] [facility] May 04, 2024 10:30 AM [place] [place] [facility] [facility] May 04, 2024 11:00 AM AMBULATORY - SURGERY [facility] May 04, 2024 12:30 PM AMBULATORY - NONE [place] [facility] May 04, 2024 01:00 PM AMBULATORY - SURGERY [facility] May 08, 2024 02:30 PM AMBULATORY - MEDICINE [facility] May 08, 2024 02:31 PM AMBULATORY - NONE [place] [facility] May 16, 2024 10:00 AM AMBULATORY - SURGERY [facility] May 16, 2024 10:01 AM AMBULATORY - SURGERY [facility] Active, Pending, and Scheduled Orders This section includes a listing of several types of active, pending, and scheduled orders, including clinic medications orders, diagnostic test orders, procedure orders and consult orders; where the start date of the order is 45 days before the date of the Encounter or 45 days after the date of theEncounter. The data comes from all [place] treatment facilities. Test Date/Time Test Type Test Details Facility Name January 18, 2024 12:13 PM Consult Order [facility] Cons Technical Service Specialist's Choice [facility] Lab Results: +/- 30 days of [...] Nov 24, 2023 05:48 PM Reporting Lab: [facility] [address] [facility] [address] Performing Lab: [facility] [address] [facility] [address] URINE COLOR Light-Shidler NOT DEFINED SPECIFIC GRAVITY 1.013 1.003-1.030 UROBILINOGEN [...] Height Weight Body Mass Index Source Dec 16, 2023 10:13 AM 97.1 55 136/84 20 96 0 69 122.3 18 [facility] Social History: Smoking Status (Most current) [...] 2021 02:27 PM CURRENT SMOKER REINIER Bhatia [facility] Tobacco Use History This section [...] 2021 02:41 PM CURRENT SMOKER REINIER Bhatia [facility] Dec 08, 2020 08:45 PM VA-TOBACCO [...] 11:15 AM UROGRAM RETROGRADE : GALINA LOYD [id number] -1945 M Exm Date: DEC 16, 2023@11:15 Req Phys: CORBY OSORIO QUIÑONES Pat Loc: [facility] G2RD (Req'g Img Loc: XRAY (OOS) Service: [place] [facility] [address] (Case [id number] COMPLETE) UROGRAM RETROGRADE (RAD Detailed) CPT:14710 Contrast Media : Non-ionic Iodinated Proc Modifiers : OPERATING ROOM EXAM Reason for Study: bilat ureteroscopy laser litho, stent placement Clinical History: calculus of kidney Report Status: Verified Date Reported: DEC 16, 2023 Date Verified: DEC 16, 2023 Order Detailer E-Sig:/PARIS/BENJAMÍN PIMENTEL Report: UROGRAM RETROGRADE 12/16/2023 11:15 AM Impression: Fluoroscopy performed during urology service procedure. FINDINGS: Procedure performed with the C-arm fluoroscopy . Fluoroscopy time 55 seconds, dose 9 mGy Fluoroscopic images consistent with history of bilateral ureteroscopy and stent placement. Labels from bilateral [employer] Contour double-J ureteral stents placed on the scanned worksheet Please see procedure note for further details. HISTORY: bilat ureteroscopy laser litho, stent placement, Primary Diagnostic Code: NO IMMEDIATE ATTENTION REQUIRED Primary Interpreting Staff: BENJAMÍN PIMENTEL, Staff Physician (Order Detailer) /BENJAMÍN HYLTON [facility] Pathology Reports: +/- 30 days of [...] comes from all [place] treatment facilities. Date/Time Pathology Report Provider Source Nov 29, 2023 11:27 AM LR MICROBIOLOGY RE PORT: Reporting Lab: [facility] GAYLE [facility] [CLIA# [id number]] [address] [place] [address] Accession [UID]: [id number] [[id number]] Received: Nov 30, 2023@19:53 Collection sample: URINE CLEAN CATCH Collection date: Nov 29, 2023 11:27 Site/Specimen: URINE Provider: CORBY OSORIO Test(s) ordered: CULTURE,URINE CLEAN CATCH..... completed: Dec 02, 2023 13:00 * BACTERIOLOGY FINAL REPORT => Dec 02, 2023 13:01 TECH CODE: [id number] Bacteriology Remark(s): 12/02/23 50,000-99,000 CFU/mL AT LEAST THREE BACTERIAL TYPES PRESENT INDICATING POSSIBLE CONTAMINATION, PLEASE REPEAT COLLECTION. =--=--=--=--=--=--=--=--=--=--= --=--=--=--=--=--=--=--=--=--=- -=--=--=--=--=-- Performing Laboratory: Bacteriology Report Performed By: [facility] [CLIA# [id number]] [address] [place] [address] [facility] Encounter Notes: All associated encounter notes This section contains the clinical notes associated to the Encounter. Date/Time Encounter Note(s) Provider Source Dec 16, 2023 04:35 PM ANESTHESIOLOGY NOT E: LOCAL TITLE: ARK PACU NOTE STANDARD TITLE: ANESTHESIOLOGY NOTE DATE OF NOTE: DEC 16, 2023@16:35 ENTRY DATE: DEC 16, 2023@16:35:43 AUTHOR: CHUCK RIGGS EXP COSIGNER: URGENCY: STATUS: COMPLETED Patient: GALINA LOYD SSN: [id number] Date of Operation: 12/16/2023 Surgery Start Time: 12/16/2023 11:31 Surgery End Time: 12/16/2023 13:20 Procedure Start Time: Procedure End Time: Event: Patient Arrives in PACU 12/16/2023 13:36 Event: Patient Leaves PACU 12/16/2023 16:21 ASA Number: 3 Procedure: BILATERAL URETEROSCOPY LASER LITHOTRIPSY STENT PLACEMENT PACU Fluids: Urine Output: 175 ml PACU Drugs: Staff: --------- CORBY OSORIO, SURGEON CORBY OSORIO, ATT. SURGEON ALICIA TELLEZ PRIN. ANES. KAHN, ADAM, ANES. SUPER. CHUCK RIGGS, PACU Nurse Resources: Headrest - Pillow Arm On Armboards < 90 Degrees Abduction At Shoulders - Bilateral PACU note PACU note PACU note PACU note PACU note PACU note /es/ CHUCK RIGGS Registered Nurse Signed: 12/16/2023 16:35 CHUCK RIGGS [facility]
--- OUTSIDE RECORDS SUMMARY | 2024-05-24 19:20 | XMS_ITS | Encounter Summary ---
Author Name Department of [place] Organization [place] Address [address] [place] [address] Care Team Providers Care Registered Nurse Ambulatory Name Role Phone RON KYRA Primary Care [...] Ervin's Name Patient's Relationship to Policy Ervin [facility] (WNR) MEDICARE ADVANTAGE [facility](W NR) * Aug 23, 2023 [id number] [phone] ANNALISA LOYD ITE PATIENT [facility] (WNR) MEDICARE ADVANTAGE [facility] (WNR) Aug 23, 2020 [id number] [phone] ANNALISA LOYD ITE PATIENT [facility] (WNR) MEDICARE ADVANTAGE [facility](W NR) Aug 23, 2012 [id number] ANNALISA LOYD ITE PATIENT Selected Encounter This section includes the information on record at [place] for the Encounter. Date/Time Encounter Type Encounter Description Reason Pro vider Source Dec 16, 2023 10:18 AM Outpatient Encounter EVENT (HISTORICAL) IHE Encounter Template Text not used by [facility] Plan of Treatment: Future Appointments (+ 6 months) and Future Tests (+/- 45 days) The Plan of Treatment section includes future care activities for the patient from all [place] [facility]. This section includes future appointments and [...] PM AMBULATORY - [place] [facility] Feb 21, 2024 10:15 AM [place]ULATORY - NONE [place] [facility] Feb 21, 2024 11:00 AM [place]ORY - NONE [place] [facility] Mar 18, 2024 12:01 AM [place]ORY - NONE [place] [facility] Apr 06, 2024 01:00 PM [place]ORY - NONE [place] [facility] Apr 06, 2024 01:00 PM AMBULATORY - MEDICINE [facility] Apr 10, 2024 01:30 PM AMBULATORY - MEDICINE [facility] Apr 10, 2024 01:31 PM [place]ORY [place]ONE [place] [facility] Apr 11, 2024 10:00 AM AMBULATORY - SURGERY [facility] Apr 11, 2024 10:01 AM [place]ORY [place] [facility] Apr 21, 2024 10:30 AM [place]ORY - NONE [place] [facility] May 03, 2024 02:30 PM [place] [facility] May 04, 2024 10:30 AM [place] [facility] May 04, 2024 11:00 AM AMBULATORY - [place] [facility] May 04, 2024 12:30 PM [place]ORY - NONE [place] [facility] May 04, 2024 01:00 PM AMBUL[place]ORY - [place]GERY [place] [facility] May 08, 2024 02:30 PM AMBULATORY - MEDICINE [facility] May 08, 2024 02:31 PM [place]ORY - NONE [place] [facility] May 16, 2024 10:00 AM AMBULATORY - SURGERY [facility] May 16, 2024 10:01 AM AMBULATORY - SURGERY [facility] Active, Pending, and Scheduled Orders This section includes a listing of several types of active, pending, and scheduled orders, including clinic medications orders, diagnostic test orders, procedure orders and consult orders; where the start date of the order is 45 days before the date of the Encounter or 45 days after the date of theEncounter. The data comes from all [place] treatment facilities. Test Date/Time Test Type Test Details Facility Name January 18, 2024 12:13 PM Consult Order [facility]-NEUROLOGY Cons Operator And Truck Driver's Choice [facility] Lab Results: +/- 30 [...] Reporting Lab: [facility] [address] [address] Performing Lab: [facility] [address] [address] URINE COLOR Light-[place] NOT DEFINED SPECIFIC GRAVITY 1.013 1.003-1.030 UROBILINOGEN [...] 136/84 20 96 0 69 122.3 18 [facility] Social History: Smoking Status (Most current) [...] 2021 02:27 PM CURRENT SMOKER REINIER Bhatia [facility] Tobacco Use History This [...] the Encounter. The data comes from all [facility]. Date/Time Radiology Report Provider Source Dec 16, 2023 11:15 AM UROGRAM RETROGRADE : GALINA LOYD [id number] -1945 M Exm Date: DEC 16, 2023@11:15 Req Phys: CORBY OSORIO Pat Loc: [facility] GENERAL G2RD (Req'g Img Loc: XRAY (OOS) Service: Unknown [facility] [place] [address] (Case [id number] COMPLETE) UROGRAM RETROGRADE (RAD Detailed) CPT:70508 Contrast Media : Non-ionic Iodinated Proc Modifiers : OPERATING ROOM EXAM Reason for Study: bilat ureteroscopy laser litho, stent placement Clinical History: calculus of kidney Report Status: Verified Date Reported: DEC 16, 2023 Date Verified: DEC 16, 2023 Visual Education Teacher E-Sig:/ES/BENJAMÍN PIMENTEL Report: UROGRAM RETROGRADE 12/16/2023 11:15 AM Impression: Fluoroscopy performed during urology service procedure. FINDINGS: Procedure performed with the C-arm fluoroscopy . Fluoroscopy time 55 seconds, dose 9 mGy Fluoroscopic images consistent with history of bilateral ureteroscopy and stent placement. Labels from bilateral [employer] Contour double-J ureteral stents placed on the scanned worksheet Please see procedure note for further details. HISTORY: bilat ureteroscopy laser litho, stent placement, Primary Diagnostic Code: NO IMMEDIATE ATTENTION REQUIRED Primary Interpreting Staff: BENJAMÍN PIMENTEL, Staff Physician (Visual Education Teacher) /BENJAMÍN HYLTON [facility] Pathology Reports: +/- 30 days of [...] the Encounter. The data comes from all VA treatment facilities. Date/Time Pathology Report Provider Source Nov 29, 2023 11:27 AM LR MICROBIOLOGY RE PORT: Reporting Lab: SONYA NALINI KATHRIN [facility] [CLIA# [id number]] [address] [place] [address] Accession [UID]: [id number] [[id number]] Received: Nov 30, 2023@19:53 Collection sample: URINE CLEAN CATCH Collection date: Nov 29, 2023 11:27 Site/Specimen: URINE Provider: CORBY OSORIO Test(s) ordered: CULTURE,URINE CLEAN CATCH..... completed: Dec 02, 2023 13:00 * BACTERIOLOGY FINAL REPORT => Dec 02, 2023 13:01 TECH CODE: [id number] Bacteriology Remark(s): 12/02/23 50,000-99,000 CFU/mL AT LEAST THREE BACTERIAL TYPES PRESENT INDICATING POSSIBLE CONTAMINATION, PLEASE REPEAT COLLECTION. =--=--=--=--=--=--=--=--=--=--= --=--=--=--=--=--=--=--=--=--=- -=--=--=--=--=-- Performing Laboratory: Bacteriology Report Performed By: SONYA PINON [facility] [CLIA# [id number]] [address] [place] [address] [facility]
--- OUTSIDE RECORDS SUMMARY | 2024-05-24 19:20 | XMS_ITS | Encounter Summary ---
Author Name Department [place] Organization [place] Address [address] [place] [address] Care Team Providers Care Residential Sales Representative Name Role Phone KYRA VELASQUEZ Primary Care [...] Name Patient's Relationship to Policy Ervin [facility] (WNR) MEDICARE ADVANTAGE MCR(W NR) * Aug 23, 2023 [id number] 03 [phone] ANNALISA LOYD ITE PATIENT [facility] (WNR) MEDICARE [facility] (WNR) Aug 23, 2020 [id number] [phone] ANNALISA LOYD ITE PATIENT [facility] (WNR) MEDICARE ADVANTAGE [facility](W NR) Aug 23, 2012 [id number] ANNALISA LOYD ITE PATIENT Selected Encounter This section includes the information on record at [place] for the Encounter. Date/Time Encounter Type Encounter Description Reason Pro vider Source December 27, 2023 09:25 AM Outpatient Encounter ADMIN PAT ACTIVTIES (MASNONCT) IHE Encounter Template Text not used by [place] Plan of Treatment: Future Appointments (+ 6 [...] AM[place]ULATORY - NONE [place] [facility] Feb 21, 2024 11:00 AM AMBULATORY - NONE [place] [facility] Mar 18, 2024 12:01 AM AM[place]ULATORY - NONE [place] [facility] Apr 06, 2024 01:00 PM AMBULATORY - NONE [place] [facility] Apr 06, 2024 01:00 PM AMBULATORY - MEDICINE [facility] Apr 10, 2024 01:30 PM AMBULATORY - MEDICINE [facility] Apr 10, 2024 01:31 PM AMBULATORY - NONE [place] [facility] Apr 11, 2024 10:00 AM AMBULATORY - SURGERY [facility] Apr 11, 2024 10:01 AM [place]UL[place] [facility] Apr 21, 2024 10:30 AM AMBULATORY - NONE [place] [facility] May 03, 2024 02:30 PM [place]ORY [place] [facility] May 04, 2024 10:30 AM [place]IC[place] [facility] May 04, 2024 11:00 AM AMBULATORY - [place]GERY [place] [facility] May 04, 2024 12:30 PM AMBULATORY - NONE [place] [facility] May 04, 2024 01:00 PM [place]UL[place]ORY - [place] [facility] May 08, 2024 02:30 PM AMBULATORY - MEDICINE [facility] May 08, 2024 02:31 PM AMBULATORY - NONE [place] [facility] May 16, 2024 10:00 AM AMBULATORY - SURGERY [facility] May 16, 2024 10:01 AM AM[place]ULATORY [place] [facility] May 19, 2024 08:00 AM AMBULATORY - NONE [place] [facility] Active, Pending, and Scheduled Orders This section includes a listing of several types of active, pending, and scheduled orders, including clinic medications orders, diagnostic test orders, procedure orders and consult orders; where the start date of the order is 45 days before the date of the Encounter or 45 days after the date of theEncounter. The data comes from all [place] treatment facilities. Test Date/Time Test Type Test Details Facility Name January 18, 2024 12:13 PM Consult Order [facility]-NEUROLOGY Cons Legal Analyst's Choice [facility] Lab Results: +/- [...] Range Comment Nov 29, 2023 11:27 AM [facility] URINALYSIS W/REFLEX TO CULTURE Specimen Type: URINE No comment entered. Ordering Provider: MIRIAN OSORIO CH Report Released Date/Time: Nov 24, 2023 05:48 PM Reporting Lab: [facility] [address] [address] Performing Lab: [facility] [address] [address] URINE COLOR Light-[place] NOT DEFINED SPECIFIC GRAVITY 1.013 1.003-1.030 UROBILINOGEN [...] PM CURRENT SMOKER REINIER GAYLE [facility] Tobacco Use History This section includes [...] 2021 02:41 PM CURRENT SMOKER REINIER GAYLE [facility] Dec 08, 2020 08:45 PM VA-TOBACCO [...] this document. The data comes from all [facility]. Date Advance Directives Provider Source Nov 18, [...] 11:15 AM UROGRAM RETROGRADE : GALINA LOYD [id number] -1945 M Exm Date: DEC 16, 2023@11:15 Req Phys: CORBY OSORIO Pat Loc: [facility] GENERAL G2RD (Req'g Img Loc: XRAY (OOS) Service: [place] [address] (Case [id number] COMPLETE) UROGRAM RETROGRADE (RAD Detailed) CPT:91290 Contrast Media : Non-ionic Iodinated Proc Modifiers : OPERATING ROOM EXAM Reason for Study: bilat ureteroscopy laser litho, stent placement Clinical History: calculus of kidney Report Status: Verified Date Reported: DEC 16, 2023 Date Verified: DEC 16, 2023 Coach Professional Athletes E-Sig:/ES/BENJAMÍN PIMENTEL Report: UROGRAM RETROGRADE 12/16/2023 11:15 AM Impression: Fluoroscopy performed during urology service procedure. FINDINGS: Procedure performed with the C-arm fluoroscopy . Fluoroscopy time 55 seconds, dose 9 mGy Fluoroscopic images consistent with history of bilateral ureteroscopy and stent placement. Labels from bilateral [employer] Contour double-J ureteral stents placed on the scanned worksheet Please see procedure note for further details. HISTORY: bilat ureteroscopy laser litho, stent placement, Primary Diagnostic Code: NO IMMEDIATE ATTENTION REQUIRED Primary Interpreting Staff: BENJAMÍN PIMENTEL, Staff Physician (Coach Professional Athletes) /BENJAMÍN HYLTON [facility] Pathology Reports: +/- 30 days [...] comes from all [place] treatment facilities. Date/Time Pathology Report Provider Source Nov 29, 2023 11:27 AM LR MICROBIOLOGY RE PORT: Reporting Lab: [facility] [CLIA# [id number]] [address] [place] [place] [address] Accession [UID]: [id number] [[id number]] Received: Nov 30, 2023@19:53 Collection sample: URINE CLEAN CATCH Collection date: Nov 29, 2023 11:27 Site/Specimen: URINE Provider: CORBY OSORIO Test(s) ordered: CULTURE,URINE CLEAN CATCH..... completed: Dec 02, 2023 13:00 * BACTERIOLOGY FINAL REPORT => Dec 02, 2023 13:01 TECH CODE: [id number] Bacteriology Remark(s): 12/02/23 50,000-99,000 CFU/mL AT LEAST THREE BACTERIAL TYPES PRESENT INDICATING POSSIBLE CONTAMINATION, PLEASE REPEAT COLLECTION. =--=--=--=--=--=--=--=--=--=--= --=--=--=--=--=--=--=--=--=--=- -=--=--=--=--=-- Performing Laboratory: Bacteriology Report Performed By: SONYA GAYLE Tobi [facility] [CLIA# [id number]] [address] [place] [address] [facility] Encounter Notes: All associated encounter notes This section contains the clinical notes associated to the Encounter. Date/Time Encounter Note(s) Provider Source December 27, 2023 09:25 AM ADMINISTRATIVE NOT E: LOCAL TITLE: CCC: SCHEDULING ADMINISTRATION STANDARD TITLE: ADMINISTRATIVE NOTE DATE OF NOTE: DECEMBER 27, 2023@09:25:21 ENTRY DATE: DECEMBER 27, 2023@09:25:21 AUTHOR: KATE DOS SANTOS EXP COSIGNER: URGENCY: STATUS: COMPLETED CCC: SCHEDULING ADMINISTRATION Has ADDENDA Patient Demographics Patient Name: GALINA LOYD Patient Primary Phone: [phone] Patient Primary [address]: [address] [place] [id number] Patient : 1945 Patient Age: 78 Caller/Recipient Relation to Patient: Self Administrative Administrative Note Reason: Other Administrative Note Comments: Veterans Darrel called stating was seen in the ED at [facility] last night for dehydration and UTI. Darrel would like to schedule a post d/c follow up with PCP. Call back to schedule [phone] /es/ KATE DOS SANTOS VISN1 [facility] AMSA Signed: 12/27/2023 09:25 Receipt Acknowledged By: 12/27/2023 09:50 /vivian/ JENIFER SHANE LPN 01/04/2024 08:48 /es/ OJ GIL RN 12/27/2023 10:00 /es/ ELSI SCHULTE 12/27/2023 ADDENDUM STATUS: COMPLETED records are requested /vivian/ JENIFER SHANE LPN Signed: 12/27/2023 09:50 KATE DOS SANTOS T [facility]
--- OUTSIDE RECORDS SUMMARY | 2024-05-24 19:20 | XMS_ITS | Encounter Summary ---
Author Name Department of [place] Organization [place] Address [address] [place] [address] Care Team Providers Care Road Builder Name Role Phone RON KYRA Primary Care [...] Patient's Relationship to Policy Ervin [facility] (WNR) MEDICARE ADVANTAGE [facility](W NR) * Aug 23, 2023 [id number] ANNALISA LOYD ITE PATIENT [facility] M[facility] (WNR) MEDICARE ADVANTAGE [facility] (WNR) Aug 23, 2020 [id number] [phone] ANNALISA LOYD ITE PATIENT [facility] MCR (WNR) MEDICARE ADVANTAGE [facility](W NR) Aug 23, 2012 [id number] ANNALISA LOYD ITE PATIENT Selected Encounter This section includes the information on record at [place] for the Encounter. Date/Time Encounter Type Encounter Description Reason Provider Source Dec 13, 2023 02:30 PM TELEHEALTH FACILITY FEE NUTRITION/DIETETI CS-INDIVIDUAL ICD-10-CM Z71.3 Dietary counseling and surveillance ADOLFO HOUSTON Jannette Encounter Template Text not used by [place] Assessments - Encounter Diagnoses This section includes the primary and secondary diagnoses documented for the Encounter. Date/Time Primary/Secondary Diagnosis Diagnosis Name Provider Source Dec 20, 2023 01:06 PM PRIMARY Dietary counseling and surveillance ADITI GARCIA [facility] Plan of Treatment: Future Appointments (+ 6 months) and Future Tests (+/- 45 days) The Plan of Treatment section includes future care activities for the patient from all [place] treatmentfacilities. This section includes future appointments and [...] AM AMBULATORY [place] [facility] Dec 21, 2023 01:30 PM AMBULATORY [...] 06, 2024 01:00 PM AMBULATORY - MEDICINE [facility] Apr 10, 2024 01:30 PM AMBULATORY - MEDICINE [facility] Apr 10, 2024 01:31 PM AMBULATORY - NONE [place] [facility] Apr 11, 2024 10:00 AM AMBULATORY - SURGERY [place] [facility] Apr 11, 2024 10:01 AM AMBULATORY - [place] [facility] Apr 21, 2024 10:30 AM AMBULATORY - NONE [place] [facility] May 03, 2024 02:30 PM AMBULATORY - [place] [facility] May 04, 2024 10:30 AM AMBULATORY - MEDICINE [facility] [facility] May 04, 2024 11:00 AM AMBULATORY - [place] [facility] May 04, 2024 12:30 PM AMBULATORY - [place]ONE [place] [facility] May 04, 2024 01:00 PM AMBULATORY - SURGERY [facility] May 08, 2024 02:30 PM AMBULATORY - MEDICINE [facility] May 08, 2024 02:31 PM AMBULATORY - NONE SONYA LAI [facility] May 16, 2024 10:00 AM AMBULATORY - SURGERY Jorge A Munson [facility] Active, Pending, and Scheduled Orders This section includes a listing of several types of active, pending, and scheduled orders, including clinic medications orders, diagnostic test orders, procedure orders and consult orders; where the start date of the order is 45 days before the date of the Encounter or 45 days after the date of theEncounter. The data comes from all [place] treatment facilities. Test Date/Time Test Type Test Details Facility Name January 18, 2024 12:13 PM Consult Order [facility]-NEUROLOGY Cons Manual Control Auger Press Operator's Choice [facility] Lab Results: +/- 30 days of [...] Range Comment Nov 29, 2023 11:[address] [facility] URINALYSIS W/REFLEX TO CULTURE Specimen Type: URINE No comment entered. Ordering Provider: MIRIAN OSORIO CH Report Released Date/Time: Nov 24, 2023 05:48 PM Reporting Lab: [facility] [address] [address] Performing Lab: [facility] [address] [address] URINE COLOR Light-Sharp NOT DEFINED SPECIFIC GRAVITY 1.013 1.003-1.030 UROBILINOGEN [...] Height Weight Body Mass Index Source Dec 13, 2023 02:34 PM 121.3 17 [facility] Social History: Smoking Status (Most [...] ity May 14, 2022 09:30 AM VA-TOBACCO USE [place] 30 MIN OF WAKE UP [facility] Tobacco Use History This section includes a history of the smoking, or tobacco-related health factors, that were collected on or before the date of the Encounter. The data comes from the [place] facility where the Encounter took place. Date/Time Smoking Status/Tobacco Use Comment F acility May 14, 2022 09:30 AM VA-TOBACCO USE ADVICE [facility] May 14, 2022 09:30 AM VA-TOBACCO USE RESTORATIVE AIDE NO [facility] May 14, 2022 09:30 AM VA-TOBACCO USE MED NO [facility] May 14, 2022 09:30 AM VA-TOBACCO USE WI 30 MIN OF WAKE UP [facility] May 14, 2022 09:30 AM VA-TOBACCO USER EVERY DAY [facility] Jun 27, 2020 09:30 AM VA-TOBACCO FORMER USER [facility] Jun 27, 2020 09:30 AM VA-TOBACCO QUIT < 1 YEAR [facility] December 28, 2018 11:23 AM VA-TOBACCO USE 30 YEARS OR MORE [facility] December 28, 2018 11:23 AM VA-TOBACCO USE ADVICE [facility] December 28, 2018 11:23 AM VA-TOBACCO USE RESTORATIVE AIDE NO [facility] December 28, 2018 11:23 AM VA-TOBACCO USE MED NO [facility] December 28, 2018 11:23 AM VA-TOBACCO USE WI 30 MIN OF WAKE UP [facility] December 28, 2018 11:23 AM VA-TOBACCO USER EVERY DAY [facility] Aug 10, 2016 09:[address] [facility] Aug 10, 2016 09:05 AM V1-PT NOT INTEREST ED IN QUIT TOBACCO USE Jorge A [facility] Advance Directives: All historical and current [...] the Encounter. The data comes from all [place] treatment facilities. Date/Time Radiology Report Provider Source Dec 16, 2023 11:15 AM UROGRAM RETROGRADE : GALINA LOYD [id number] -1945 M Exm Date: DEC 16, 2023@11:15 Req Phys: CORBY OSORIO Pat Loc: [facility] GENERAL G2RD (Req'g Img Loc: XRAY (OOS) Service: [place] [address] (Case 447 COMPLETE) UROGRAM RETROGRADE (RAD Detailed) CPT:37034 Contrast Media : Non-ionic Iodinated Proc Modifiers : OPERATING ROOM EXAM Reason for Study: bilat ureteroscopy laser litho, stent placement Clinical History: calculus of kidney Report Status: Verified Date Reported: DEC 16, 2023 Date Verified: DEC 16, 2023 Graffiti Cleaner E-Sig:/ES/BENJAMÍN PIMENTEL Report: UROGRAM RETROGRADE 12/16/2023 11:15 AM Impression: Fluoroscopy performed during urology service procedure. FINDINGS: Procedure performed with the C-arm fluoroscopy . Fluoroscopy time 55 seconds, dose 9 mGy Fluoroscopic images consistent with history of bilateral ureteroscopy and stent placement. Labels from bilateral [employer] Contour double-J ureteral stents placed on the scanned worksheet Please see procedure note for further details. HISTORY: bilat ureteroscopy laser litho, stent placement, Primary Diagnostic Code: NO IMMEDIATE ATTENTION REQUIRED Primary Interpreting Staff: BENJAMÍN PIMENTEL, Staff Physician (Graffiti Cleaner) /BENJAMÍN HYLTON [facility] Pathology Reports: +/- 30 days of [...] the Encounter. The data comes from all [place] treatment facilities. Date/Time Pathology Report Provider Source Nov 29, 2023 11:27 AM LR MICROBIOLOGY RE PORT: Reporting Lab: SONYA GAYLE [facility] [CLIA# [id number]] [address] [place] [address] Accession [UID]: [id number] [[id number]] Received: Nov 30, 2023@19:53 Collection sample: URINE CLEAN CATCH Collection date: Nov 29, 2023 11:27 Site/Specimen: URINE Provider: CORBY OSORIO Test(s) ordered: CULTURE,URINE CLEAN CATCH..... completed: Dec 02, 2023 13:00 * BACTERIOLOGY FINAL REPORT => Dec 02, 2023 13:01 TECH CODE: [id number] Bacteriology Remark(s): 12/02/23 50,000-99,000 CFU/mL AT LEAST THREE BACTERIAL TYPES PRESENT INDICATING POSSIBLE CONTAMINATION, PLEASE REPEAT COLLECTION. =--=--=--=--=--=--=--=--=--=--= --=--=--=--=--=--=--=--=--=--=- -=--=--=--=--=-- Performing Laboratory: Bacteriology Report Performed By: [facility] [CLIA# [id number]] [address] [place] [facility] [place] [address] [facility] Encounter Notes: All associated encounter notes This section contains the clinical notes associated to the Encounter. Date/Time Encounter Note(s) Provider Source Dec 13, 2023 01:03 PM TELEHEALTH NOTE: LOCAL TITLE: Telehealth Gaming Host Note STANDARD TITLE: TELEHEALTH NOTE DATE OF NOTE: DEC 13, 2023@13:03 ENTRY DATE: DEC 20, 2023@13:03:24 AUTHOR: ADITI GARCIA COSIGNER: URGENCY: STATUS: COMPLETED The patient was identified using the following patient identifiers: Full Name, Date of , Full social security number They were informed verbally that they were here to be seen via telehealth by a provider at a remote site. It was explained to them that this was entirely voluntary, and they always have the option to drive to [place] to see the provider in person. They [...] through an in-person visit at the nearest [place] clinical site offering the requested service, and the patient's right of refusal, at any time, for any Telehealth. Emergency contact information was obtained as follows: Current Location: [facility] Current Address: [address] [place] [address] County: [place] Emergency Contact Name: ADITI GARCIA Emergency Relationship: TCT Emergency Number: [phone] /es/ ADITI GARCIA Health Gaming Host Signed: 12/20/2023 13:04 ADITI GARCIA [facility]
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
--- OUTSIDE RECORDS SUMMARY | 2024-05-24 19:20 | XMS_ITS ---
Author Name [facility] [place] Organization [place] Address [address] [place] [address] Care Team Providers Care Gluing Machine Operator Automatic Name Role Phone KYRA VELASQUEZ Primary Care [...] Ervin's Name Patient's Relationship to Policy Ervin [facility] (WNR) MEDICARE [facility](W NR) * Aug 23, 2023 [id number] ANNALISA LOYD ITE PATIENT [facility] (WNR) MEDICARE ADVANTAGE [facility] (WNR) Aug 23, 2020 [id number] [phone] ANNALISA LOYD ITE PATIENT [facility] (WNR) MEDICARE [facility](W NR) Aug 23, 2012 [id number] ANNALISA LOYD ITE PATIENT Selected Encounter This section includes the information on record at [place] for the Encounter. Date/Time Encounter Type Encounter Description Reason Provider Source Dec 16, 2023 01:37 PM Outpatient Encounter ADMIN PAT ACTIVTIES (MASNONCT) GEOFF,WARREN IC IHE Encounter Template Text not used by PA Plan of Treatment: Future Appointments (+ 6 months) and Future Tests (+/- 45 days) The Plan of Treatment section includes future care activities for the patient from all [place] treatmentfacilities. This section includes future appointments and future orders which are active, pending or scheduled. Future Appointments This section includes appointments that were scheduled to occur 6 months from the date of the Encounter, up to a maximum of 20 appointments. The data comes from all [place] treatment facilities. Appointment Date/Time Appointment Type Appointme nt Facility Name Dec 21, 2023 01:30 PM AMBULATORY [place] [facility] Feb 21, 2024 10:15 AM AMBULATORY - NONE [place] [facility] Feb 21, 2024 11:00 AM AMBULATORY - NONE [place] [facility] Mar 18, 2024 12:01 AM AMBULATORY - NONE [place] [facility] Apr 06, 2024 01:00 PM AMBULATORY - [place]ONE [place] [facility] Apr 06, 2024 01:00 PM AMBULATORY - MEDICINE [facility] Apr 10, 2024 01:30 PM AMBULATORY - MEDICINE [facility] Apr 10, 2024 01:31 PM AM[place]ULATORY - [place] [facility] Apr 11, 2024 10:00 AM AMBULATORY - SURGERY [facility] Apr 11, 2024 10:01 AM AMBULATORY [place] [facility] Apr 21, 2024 10:30 AM AMBULATORY - NONE [place] [facility] May 03, 2024 02:30 PM [place]BUL[place]ORY [place] [facility] May 04, 2024 10:30 AM [place] [facility] May 04, 2024 11:00 AM AMBULATORY - [place]GERY [place] [facility] May 04, 2024 12:30 PM AM[place]ULATORY - NONE [place] [facility] May 04, 2024 01:00 PM AMBULATORY [place] [facility] May 08, 2024 02:30 PM AMBULATORY - MEDICINE [facility] May 08, 2024 02:31 PM AM[place]ULATORY - [place]ONE [place] [facility] May 16, 2024 10:00 AM AMBULATORY - SURGERY [facility] May 16, 2024 10:01 AM AMBULATORY - SURGERY [facility] Active, Pending, and Scheduled Orders This section includes a listing of several types of active, pending, and scheduled orders, including clinic medications orders, diagnostic test orders, procedure orders and consult orders; where the start date of the order is 45 days before the date of the Encounter or 45 days after the date of theEncounter. The data comes from all [place] treatment facilities. Test Date/Time Test Type Test Details Facility Name January 18, 2024 12:13 PM Consult Order [facility] Cons Company Marker's Choice [facility] Lab Results: +/- 30 days of [...] Nov 24, 2023 05:48 PM Reporting Lab: [facility] [address] [facility] [address] Performing Lab: [facility] [address] [facility] [address] URINE COLOR Light-Glynn NOT DEFINED SPECIFIC GRAVITY 1.013 1.003-1.030 UROBILINOGEN [...] 136/84 20 96 0 69 122.3 18 [facility] Social History: Smoking Status (Most current) and Tobacco Use (All prior to encounter date) This section includes the most current, and the historical, smoking and tobacco- related health factors from the [place] facility where the Encounter took place. Current Smoking Status This section includes the most current smoking, or tobacco-related health factor, from the [place] facility where the Encounter took place. Date/Time Current Smoking Status Comment Facil ity Jul 17, 2021 02:27 PM CURRENT SMOKER REINIER Bhatia [facility] Tobacco Use History This section includes a history of the smoking, or tobacco-related health factors, that were collected on or before the date of the Encounter. The data comes from the [place] facility where the Encounter took place. Date/Time Smoking Status/Tobacco Use Comment F acility Jul 01, 2021 08:55 PM VA-VAAES TOBACCO U SE CURRENT NRT DECLINE [facility] Jul 01, 2021 02:41 PM CURRENT SMOKER REINIER Bhatia [facility] Dec 08, 2020 08:45 PM VA-TOBACCO USER EVERY DAY [facility] Dec 08, 2020 08:45 PM VA-VAAES TOBACCO U SE CURRENT NRT DECLINE [facility] Dec 08, 2020 06:58 PM VA-TOBACCO FORMER USER [facility] Apr 04, 2015 03:47 PM CURRENT SMOKER Less than a pack a day [facility] Apr 04, 2015 03:47 PM V1-PT NOT INTEREST ED IN QUIT TOBACCO USE [facility] Advance Directives: All historical and current Section Date Range: From patient's date of to the date document was created. This section includes ALL of a patient's completed or amended [place] Advance and Rescinded Directives. The entries below indicate that a directive exists for the patient, but an actual copy is not included with this document. The data comes from all [place] facilities. Date Advance Directives Provider Source Nov 18, 2017 ADVANCE DIRECTIVE RADHA FERNANDEZ [facility] Jul 08, 2017 ADVANCE DIRECTIVE DISCUSSION PURNIMA ROJAS [facility] Radiology Reports: +/- 30 days of [...] the Encounter. The data comes from all [place] treatment facilities. Date/Time Radiology Report Provider Source Dec 16, 2023 11:15 AM UROGRAM RETROGRADE : GALINA LOYD [id number] -1945 M Exm Date: DEC 16, 2023@11:15 Req Phys: CORBY OSORIO Pat Loc: [facility] GENER[facility] G2RD (Req'g Img Loc: XRAY (OOS) Service: [place] [address] (Case [id number] COMPLETE) UROGRAM RETROGRADE (RAD Detailed) CPT:41599 Contrast Media : Non-ionic Iodinated Proc Modifiers : OPERATING ROOM EXAM Reason for Study: bilat ureteroscopy laser litho, stent placement Clinical History: calculus of kidney Report Status: Verified Date Reported: DEC 16, 2023 Date Verified: DEC 16, 2023 Painter Touch Up E-Sig:/VIVIAN/BENJAMÍN PIMENTEL Report: UROGRAM RETROGRADE 12/16/2023 11:15 AM Impression: Fluoroscopy performed during urology service procedure. FINDINGS: Procedure performed with the C-arm fluoroscopy . Fluoroscopy time 55 seconds, dose 9 mGy Fluoroscopic images consistent with history of bilateral ureteroscopy and stent placement. Labels from bilateral [employer] Contour double-J ureteral stents placed on the scanned worksheet Please see procedure note for further details. HISTORY: bilat ureteroscopy laser litho, stent placement, Primary Diagnostic Code: NO IMMEDIATE ATTENTION REQUIRED Primary Interpreting Staff: BENJAMÍN PIMENTEL, Staff Physician (Painter Touch Up) /BENJAMÍN HYLTON [facility] Pathology Reports: +/- 30 days of [...] the Encounter. The data comes from all [place] treatment facilities. Date/Time Pathology Report Provider Source Nov 29, 2023 11:27 AM LR MICROBIOLOGY RE PORT: Reporting Lab: [facility] [CLIA# [id number]] [address] [place] [address] Accession [UID]: [id number] [[id number]] Received: Nov 30, 2023@19:53 Collection sample: URINE CLEAN CATCH Collection date: Nov 29, 2023 11:27 Site/Specimen: URINE Provider: CORBY OSORIO Test(s) ordered: CULTURE,URINE CLEAN CATCH..... completed: Dec 02, 2023 13:00 * BACTERIOLOGY FINAL REPORT => Dec 02, 2023 13:01 TECH CODE: [id number] Bacteriology Remark(s): 12/02/23 50,000-99,000 CFU/mL AT LEAST THREE BACTERIAL TYPES PRESENT INDICATING POSSIBLE CONTAMINATION, PLEASE REPEAT COLLECTION. =--=--=--=--=--=--=--=--=--=--= --=--=--=--=--=--=--=--=--=--=- -=--=--=--=--=-- Performing Laboratory: Bacteriology Report Performed By: [facility] [CLIA# [id number]] [address] [place] [address] [facility] Encounter Notes: All associated encounter notes This section contains the clinical notes associated to the Encounter. Date/Time Encounter Note(s) Provider Source Dec 16, 2023 01:37 PM ANESTHESIOLOGY NOT E: LOCAL TITLE: ARK OR ANESTHESIA NOTE STANDARD TITLE: ANESTHESIOLOGY NOTE DATE OF NOTE: DEC 16, 2023@13:37 ENTRY DATE: DEC 16, 2023@13:37:16 AUTHOR: ALICIA TELLEZ EXP COSIGNER: URGENCY: STATUS: COMPLETED Patient: GALINA LOYD SSN: [id number] Date of Operation: 12/16/2023 Surgery Start Time: 12/16/2023 11:31 Surgery End Time: 12/16/2023 13:20 Anesthesia Care Start: 12/16/2023 10:59 Anesthesia Care End: 12/16/2023 13:36 Anesthesia Method: - General 12/16/2023 11:18 (Primary), Airway: Endotracheal Intubation, Technique: Indirect Laryngoscopy, Patient Position: Supine, Preoxygenated, Cervical Stabilization, Induction Type: Intravenous, Breathing Circuit: Non-Rebreathing Adult, Ventilation by Mask: Easy to Ventilate without Aid/Adjunct, Intubating Device: Glidescope, Ease: Easy, 1 Number Of Attempts, Blade Size: 4, Size: 8, EtCO2 Verified: Waveform, Performed By: PRIN. STINSON. Rationale For Selected Technique: Elective Route: Oral Airway Preparation: Lubricant Tube Checklist: Balloons Checked Airway Tube: Standard Adjunct Devices: Stylet Verification Of Tube Placement: Bilateral Chest Movement Securement: Taped Eye Protection: Both Eyes, Tape, Eye Pads, Laser Glasses Insertion Complication: No Complications Noted Positioning: Head And Neck In Alignment With Spine, Pressure Points Padded & Checked, Eyes, Ears And Nose Free Of Pressure ASA Number: 3 Procedure: BILATERAL URETEROSCOPY LASER LITHOTRIPSY STENT PLACEMENT Staff: --------- CORBY OSORIO, SURGEON CORBY OSORIO, ATT. SURGEON ALICIA TELLEZ PRIN. ANES. MELISSA JAVIER ANES. SUPER. Anesthesia Drugs: FentaNYL: 200 mcg Lidocaine: 100 mg Propofol: 150 mg Rocuronium: 50 mg ceFAZolin: 2000 mg Sugammadex: 200 mg ePHEDrine: 20 mg Ondansetron: 4 mg Ciprofloxacin: 400 mg Anesthesia Fluids: Estimated Blood Loss: 5 ml RINGERS LACTATED SOLUTION: 700 ml Event: Patient Arrives in Operating Room 12/16/2023 11:04 Event: Patient Leaves Operating Room 12/16/2023 13:33 Event: Extubation 12/16/2023 13:32 Event: Transport To: PACU - Stable 12/16/2023 13:35 Event: Report given 12/16/2023 13:34 /vivian/ ALICIA TELLEZ CAN MARKER Signed: 12/16/2023 13:[address] [facility]
--- OUTSIDE RECORDS SUMMARY | 2024-05-24 19:20 | XMS_ITS | Encounter Summary ---
Author Name [facility] [place] Organization [place] Address [address] [place] [address] Care Team Providers Care Receiving Weigher Name Role Phone RON KYRA Primary Care [...] Patient's Relationship to Policy Ervin [facility] (WNR) MEDICARE ADVANTAGE [facility](W NR) * Aug 23, 2023 [id number] 03 ANNALISA LOYD ITE PATIENT [facility] MCR (WNR) MEDICARE ADVANTAGE [facility] (WNR) Aug 23, 2020 [id number] [phone] ANNALISA LOYD ITE PATIENT [facility] (WNR) MEDICARE ADVANTAGE [facility](W NR) Aug 23, 2012 [id number] 03 ANNALISA LOYD ITE PATIENT Selected Encounter This section includes the information on record at [place] for the Encounter. Date/Time Encounter Type Encounter Description Reason Pro vider Source Dec 21, 2023 01:57 PM Outpatient Encounter EVENT (HISTORICAL) IHE Encounter Template Text not used by [facility] Plan of Treatment: Future Appointments (+ 6 months) and Future Tests (+/- 45 days) The Plan of Treatment section includes future care activities for the patient from all [place] [facility] This section includes future appointments and [...] - NONE [place] [facility] Feb 21, 2024 11:00 AM AMBULATORY - NONE [place] [facility] Mar 18, 2024 12:01 AM AMBULATORY - NONE [place] [facility] Apr 06, 2024 01:00 PM AMBULATORY - NONE [place] [facility] Apr 06, 2024 01:00 PM AMBULATORY - MEDICINE [facility] Apr 10, 2024 01:30 PM AMBULATORY - MEDICINE [facility] Apr 10, 2024 01:31 PM AMBULATORY - NONE [place] [facility] Apr 11, 2024 10:00 AM AMBULATORY - SURGERY [facility] Apr 11, 2024 10:01 AM AMBUL[place]ORY [place] [facility] Apr 21, 2024 10:30 AM AMBULATORY - NONE [place] [facility] May 03, 2024 02:30 PM AMBULATORY [place] [facility] May 04, 2024 10:30 AM [place] [facility] May 04, 2024 11:00 AM AMBULATORY [place] [facility] May 04, 2024 12:30 PM AMBULATORY - NONE [place] [facility] May 04, 2024 01:00 PM AMBULATORY - [place] [facility] May 08, 2024 02:30 PM AMBULATORY - MEDICINE [facility] May 08, 2024 02:31 PM AMBULATORY - NONE [place] [facility] May 16, 2024 10:00 AM AMBULATORY - SURGERY [facility] May 16, 2024 10:01 AM AMBULATORY - [place] [facility] May 19, 2024 08:00 AM AMBULATORY - NONE [facility] Active, Pending, and Scheduled Orders This section includes a listing of several types of active, pending, and scheduled orders, including clinic medications orders, diagnostic test orders, procedure orders and consult orders; where the start date of the order is 45 days before the date of the Encounter or 45 days after the date of theEncounter. The data comes from all [place] treatment facilities. Test Date/Time Test Type Test Details Facility Name January 18, 2024 12:13 PM Consult Order [facility] Cons Conditioning Machine Operator's Choice [facility] Lab Results: +/- 30 days of [...] Nov 24, 2023 05:48 PM Reporting Lab: [facility] [address] [facility] [address] Performing Lab: [facility] [address] [facility] [address] URINE COLOR Light-[place] NOT DEFINED SPECIFIC GRAVITY 1.013 1.003-1.030 UROBILINOGEN [...] 02:25 PM 97.5 63 116/74 20 97 [facility] Social History: Smoking Status (Most current) [...] 2021 02:27 PM CURRENT SMOKER REINIER Bhatia [facility] Tobacco Use History This section [...] 2021 02:41 PM CURRENT SMOKER REINIER Bhatia [facility] Dec 08, 2020 08:45 PM VA-TOBACCO [...] the Encounter. The data comes from all [facility]. Date/Time Radiology Report Provider Source Dec 16, 2023 11:15 AM UROGRAM RETROGRADE : GALINA LOYD [id number] -1945 M Exm Date: DEC 16, 2023@11:15 Req Phys: CORBY OSORIO QUIÑONES Pat Loc: [facility] G2RD (Req'g Img Loc: XRAY (OOS) Service: [place] [facility] [address] (Case [id number] COMPLETE) UROGRAM RETROGRADE (RAD Detailed) CPT:00513 Contrast Media : Non-ionic Iodinated Proc Modifiers : OPERATING ROOM EXAM Reason for Study: bilat ureteroscopy laser litho, stent placement Clinical History: calculus of kidney Report Status: Verified Date Reported: DEC 16, 2023 Date Verified: DEC 16, 2023 Fish Receiver E-Sig:/ES/BENJAMÍN PIMENTEL Report: UROGRAM RETROGRADE 12/16/2023 11:15 AM Impression: Fluoroscopy performed during urology service procedure. FINDINGS: Procedure performed with the C-arm fluoroscopy . Fluoroscopy time 55 seconds, dose 9 mGy Fluoroscopic images consistent with history of bilateral ureteroscopy and stent placement. Labels from bilateral [employer] Contour double-J ureteral stents placed on the scanned worksheet Please see procedure note for further details. HISTORY: bilat ureteroscopy laser litho, stent placement, Primary Diagnostic Code: NO IMMEDIATE ATTENTION REQUIRED Primary Interpreting Staff: BENJAMÍN PIMENTEL, Staff Physician (Fish Receiver) /BENJAMÍN HYLTON [facility] Pathology Reports: +/- 30 days of [...] LR MICROBIOLOGY RE PORT: Reporting Lab: [facility] YUMA KATHR[facility] [CLIA# [id number]] [address] [place] [address] Accession [UID]: [id number] [[id number]] Received: Nov 30, 2023@19:53 Collection sample: URINE CLEAN CATCH Collection date: Nov 29, 2023 11:27 Site/Specimen: URINE Provider: CORBY OSORIO Test(s) ordered: CULTURE,URINE CLEAN CATCH..... completed: Dec 02, 2023 13:00 * BACTERIOLOGY FINAL REPORT => Dec 02, 2023 13:01 TECH CODE: [id number] Bacteriology Remark(s): 12/02/23 50,000-99,000 CFU/mL AT LEAST THREE BACTERIAL TYPES PRESENT INDICATING POSSIBLE CONTAMINATION, PLEASE REPEAT COLLECTION. =--=--=--=--=--=--=--=--=--=--= --=--=--=--=--=--=--=--=--=--=- -=--=--=--=--=-- Performing Laboratory: Bacteriology Report Performed By: [facility] [CLIA# [id number]] [address] [place] [address] [facility]
--- OUTSIDE RECORDS SUMMARY | 2024-05-24 19:20 | XMS_ITS ---
Author Name [facility] [place] Organization [place] Address [address] [place] [address] Care Team Providers Care Recreation Instructor Name Role Phone RON KYRA Primary Care [...] Ervin [facility] (WNR) MEDICARE ADVANTAGE [facility](W NR) * Aug 23, 2023 [id number] ANNALISA LOYD ITE PATIENT [facility] MCR (WNR) MEDICARE ADVANTAGE MCR (WNR) Aug 23, 2020 [id number] [phone] ANNALISA LOYD ITE PATIENT [facility] MCR (WNR) MEDICARE ADVANTAGE [facility](W NR) Aug 23, 2012 [id number] ANNALISA LOYD ITE PATIENT Selected Encounter This section includes the information on record at [place] for the Encounter. Date/Time Encounter Type Encounter Description Reason Provider Source December 22, 2023 10:47 AM Outpatient Encounter TELEPHONE TRIAGE WRIGHT,SEE R Jannette Encounter Template Text not used by ND Plan of Treatment: Future Appointments (+ 6 months) and Future Tests (+/- 45 days) The Plan of Treatment section includes future care activities for the patient from all [place] [facility] This section includes future appointments and future [...] AMBULATORY - NONE [place] [facility] Feb 21, 2024 11:00 AM AMBULATORY - NONE [place] [facility] Mar 18, 2024 12:01 AM AMBULATORY - NONE [place] [facility] Apr 06, 2024 01:00 PM AMBULATORY - NONE [place] [facility] Apr 06, 2024 01:00 PM AMBULATORY - MEDICINE [facility] Apr 10, 2024 01:30 PM AMBULATORY - MEDICINE [facility] Apr 10, 2024 01:31 PM AMBULATORY - NONE [place] [facility] Apr 11, 2024 10:00 AM AMBULATORY - SURGERY [facility] Apr 11, 2024 10:01 AM [place]BUL[place]ORY [place] [facility] Apr 21, 2024 10:30 AM AMBULATORY - NONE [place] [facility] May 03, 2024 02:30 PM AMBULATORY [place] [facility] May 04, 2024 10:30 AM [place] [facility] May 04, 2024 11:00 AM [place]BULATORY [place]GERY [place] [facility] May 04, 2024 12:30 PM AMBULATORY - NONE [place] [facility] May 04, 2024 01:00 PM AMBULATORY [place] [facility] May 08, 2024 02:30 PM AMBULATORY - MEDICINE [facility] May 08, 2024 02:31 PM AMBULATORY - NONE [place] [facility] May 16, 2024 10:00 AM AMBULATORY - SURGERY [facility] May 16, 2024 10:01 AM [place] [facility] May 19, 2024 08:00 AM AMBULATORY - NONE SONYA LAI [facility] Active, Pending, and Scheduled Orders This section [...] 18, 2024 12:13 PM Consult Order [facility] Cons [place] Hand's Choice SONYA GAYLE [facility] Lab Results: +/- 30 days of the [...] Range Comment Nov 29, 2023 11:27 AM [facility] URINALYSIS W/REFLEX TO CULTURE Specimen Type: URINE No comment entered. Ordering Provider: MIRIAN OSORIO CH Report Released Date/Time: Nov 24, 2023 05:48 PM Reporting Lab: [facility] [address] [facility] [address] Performing Lab: [facility] [address] [address] URINE COLOR Light[place] NOT DEFINED SPECIFIC GRAVITY 1.013 1.003-1.030 UROBILINOGEN [...] PM CURRENT SMOKER REINIER GAYLE [facility] Tobacco Use History This section includes a [...] 2021 02:41 PM CURRENT SMOKER REINIER Bhatia [facility] Dec 08, 2020 [...] 11:15 AM UROGRAM RETROGRADE : GALINA LOYD [id number] -1945 M Exm Date: DEC 16, 2023@11:15 Req Phys: CORBY OSORIO Pat Loc: [facility] GENERAL G2RD (Req'g Img Loc: XRAY (OOS) Service: Unknown [facility] [place] [address] (Case [id number] COMPLETE) UROGRAM RETROGRADE (RAD Detailed) CPT:34359 Contrast Media : Non-ionic Iodinated Proc Modifiers : OPERATING ROOM EXAM Reason for Study: bilat ureteroscopy laser litho, stent placement Clinical History: calculus of kidney Report Status: Verified Date Reported: DEC 16, 2023 Date Verified: DEC 16, 2023 Liquefaction And Regasification Helper E-Sig:/ES/BENJAMÍN PIMENTEL Report: UROGRAM RETROGRADE 12/16/2023 11:15 AM Impression: Fluoroscopy performed during urology service procedure. FINDINGS: Procedure performed with the C-arm fluoroscopy . Fluoroscopy time 55 seconds, dose 9 mGy Fluoroscopic images consistent with history of bilateral ureteroscopy and stent placement. Labels from bilateral [place] Contour double-J ureteral stents placed on the scanned worksheet Please see procedure note for further details. HISTORY: bilat ureteroscopy laser litho, stent placement, Primary Diagnostic Code: NO IMMEDIATE ATTENTION REQUIRED Primary Interpreting Staff: BENJAMÍN PIMENTEL, Staff Physician (Liquefaction And Regasification Helper) /BENJAMÍN HYLTON [facility] Pathology Reports: +/- 30 days [...] AM LR MICROBIOLOGY RE PORT: Reporting Lab: [facility] [CLIA# [id number]] [address] [place] [address] Accession [UID]: [id number] [[id number]] Received: Nov 30, 2023@19:53 Collection sample: URINE CLEAN CATCH Collection date: Nov 29, 2023 11:27 Site/Specimen: URINE Provider: CORBY OSORIO Test(s) ordered: CULTURE,URINE CLEAN CATCH..... completed: Dec 02, 2023 13:00 * BACTERIOLOGY FINAL REPORT => Dec 02, 2023 13:01 TECH CODE: [id number] Bacteriology Remark(s): 12/02/23 50,000-99,000 CFU/mL AT LEAST THREE BACTERIAL TYPES PRESENT INDICATING POSSIBLE CONTAMINATION, PLEASE REPEAT COLLECTION. =--=--=--=--=--=--=--=--=--=--= --=--=--=--=--=--=--=--=--=--=- -=--=--=--=--=-- Performing Laboratory: Bacteriology Report Performed By: [facility] [CLIA# [id number]] [address] [place] [address] [facility] Encounter Notes: All associated encounter notes This section contains the clinical notes associated to the Encounter. Date/Time Encounter Note(s) Provider Source December 22, 2023 10:47 AM RN PROGRESS NOTE: LOCAL TITLE: CCC: CLINICAL TRIAGE STANDARD TITLE: RN PROGRESS NOTE DATE OF NOTE: DECEMBER 22, 2023@10:47:11 ENTRY DATE: DECEMBER 22, 2023@10:47:11 AUTHOR: SEE WRIGHT COSIGNER: URGENCY: STATUS: COMPLETED CCC: CLINICAL TRIAGE Has ADDENDA Patient Demographics Patient Name: GALINA LOYD Patient Primary Address: [address] [place] [address] Patient Primary Phone: [phone] Patient : 1945 Patient Age: 78 Current Location: [facility] Call Back Number: Caller/Recipient Relation to Patient: Caregiver Caller Name: MARIE Emergency Contact: MARIE LOYD Triage Summary Conducted triage/discussed symptoms Pain Score: 0 (No Pain) Utilized the Triage Tool: Yes Chief Complaint: Leg Weakness (both legs) System WHEN: Self-care Nurse's Recommendation / WHEN: Selfcare System WHERE: Home Nurse's Recommendation / WHERE: Home Care Patient Disposition Patient/Caregiver agrees to plan of care: Yes Nursing Plan and Disposition Other course(s) of action Generated msg to PACT/Provider Provided guidance for worsening symptoms: *Caller/Patient* advised to call facilities [place] Clinical Contact Center or seek immediate medical attention for new or worsening symptoms Nurse Summary Nurse Summary: CALL RECEIVED IAG STATES ''STENT REMOVED FROM KIDNEY YESTERDAY AND SINCE THEN DOES NOT DRINK TOO MUCH FLUID WHEN I GAVE HIM BREAKFAST, HE WAS SITTING MORE FORWARD, HE IS WOBBLY ON HIS FEET, I THINK HE MAY BE DEHYDRATED, WAS TOLD THERE IS A SMALL KIDNEY STONE LEFT THAT HE MAY NOT FEEL IT PASS, THERE IS NO BLOOD IN HIS URINE, HE IS OFF MORE THAN USUAL'' WILL CONTINUE TO MONITOR HIS SYMPTOMS SEE TRIAGE FOR FURTHER INFORMATION FOR DETAILS PACT/UROLOGY ALERTED FOR FURTHER FOLLOW UP Clinical Contact Center Codes Clinic/Location: [facility] PHONE CCC RN TXCC Triage Complete Triage Date: 12/22/2023, 10:40 AM Triage Note: Phone Triage 22 Dec 2023 14:38:12 +0000 [facility] Demographics 78 y/o Male Results CC: Leg Weakness (both legs) Software suggested: Self-care Software suggested follow-up location: Home, consider [facility] care Values and Measures Duration of CC: 5 Hours Positive Responses MEDS: cholesterol-lowering medication PMH: high cholesterol Negative Responses Denies: HPI: has had lumbar puncture or epidural performed in the past week Denies: HPI: leg weakness, duration longer than 1 week Denies: HPI: leg weakness, sudden onset Denies: HPI: leg weakness, worsening Denies: HPI: muscle tenderness, generalized Denies: HPI: myalgias, generalized Denies: HPI: unable to walk Education Verbal Education Provided for: Weakness or Fatigue Home Care Viral Syndrome Home Care /es/ SEE WRIGHT RN BSN REGISTERED NURSE Signed: 12/22/2023 10:47 Receipt Acknowledged By: 12/23/2023 14:41 /es/ JENIFER SHANE LPN 12/23/2023 12:30 /es/ OJ GIL RN 12/22/2023 11:12 /es/ Son Cheung MD Urology Resident 12/23/2023 09:24 /es/ Pb OSORIO MD Staff Surgeon, Urology 12/23/2023 ADDENDUM STATUS: COMPLETED contact with of vet- states vet is doing well today- did speak to urology yesterday. She pumped him full of fluid, urine is clear, vet having no issue with voiding. Will contact clinic should there be any further needs. /vivian/ OJ GIL RN Signed: 12/23/2023 12:40 SEE WRIGHT [facility]
--- OUTSIDE RECORDS SUMMARY | 2024-05-24 19:20 | XMS_ITS | Encounter Summary ---
Author Name Department of [place] Organization [place] Address [address] [place] [address] Care Team Providers Care Dormitory Counselor Name Role Phone RON KYRA Primary Care [...] [facility] (WNR) MEDICARE ADVANTAGE [facility](W NR) * Aug 23, 2023 [id number] ANNALISA LOYD ITE PATIENT [facility] MCR (WNR) MEDICARE ADVANTAGE MCR (WNR) Aug 23, 2020 [id number] [phone] ANNALISA LOYD ITE PATIENT [facility] (WNR) MEDICARE ADVANTAGE [facility](W NR) Aug 23, 2012 [id number] 03 ANNALISA LOYD ITE PATIENT Selected Encounter This section includes the information on record at [place] for the Encounter. Date/Time Encounter Type Encounter Description Reason Pro vider Source Dec 17, 2023 08:21 AM Outpatient Encounter TELEPHONE/MEDICINE IHE Encounter Template Text not used by ND Plan of Treatment: Future Appointments (+ 6 months) and Future Tests (+/- 45 days) The Plan of Treatment section includes future care activities for the patient from all [place] treatmentfafirsthealthities. This section includes future appointments and future [...] [place] [facility] Feb 21, 2024 10:15 AM AMBULATORY - NONE [place] [facility] Feb 21, 2024 11:00 AM AMBULATORY - NONE [place] [facility] Mar 18, 2024 12:01 AM AMBULATORY - NONE [place] [facility] Apr 06, 2024 01:00 PM AMBULATORY - NONE [place] [facility] Apr 06, 2024 01:00 PM AMBULATORY - MEDICINE [facility] Apr 10, 2024 01:30 PM AMBULATORY - MEDICINE [facility] Apr 10, 2024 01:31 PM AMBULATORY - NONE [place] [facility] Apr 11, 2024 10:00 AM AMBULATORY - SURGERY [facility] Apr 11, 2024 10:01 AM AMBULATORY - [place]GERY [place] [facility] Apr 21, 2024 10:30 AM AMBULATORY - NONE [place] [facility] May 03, 2024 02:30 PM AMBULATORY - [place]GERY [place] [facility] May 04, 2024 10:30 AM [place]ORY [place]IC[place] [facility] May 04, 2024 11:00 AM AMBULATORY - [place]GERY [place] [facility] May 04, 2024 12:30 PM AMBULATORY - NONE [place] [facility] May 04, 2024 01:00 PM AMBULATORY - [place]GERY [place] [facility] May 08, 2024 02:30 PM AMBULATORY - MEDICINE [facility] May 08, 2024 02:31 PM AMBULATORY - NONE [place] [facility] May 16, 2024 10:00 AM AMBULATORY - SURGERY [facility] May 16, 2024 10:01 AM AMBULATORY - [place]GERY [place] [facility] Active, Pending, and Scheduled Orders This section [...] 12:13 PM Consult Order [facility]NEUROLOGY Cons Tobacco Curer's Choice [facility] Lab Results: +/- [...] Range Comment Nov 29, 2023 11:27 AM [facility] URINALYSIS W/REFLEX TO CULTURE Specimen Type: URINE No comment entered. Ordering Provider: MIRIAN OSORIO CH Report Released Date/Time: Nov 24, 2023 05:48 PM Reporting Lab: [facility] [address] [facility] [address] Performing Lab: [facility] [address] [facility] [address] URINE COLOR Light[place] NOT DEFINED SPECIFIC GRAVITY 1.013 1.003-1.030 UROBILINOGEN [...] 2021 02:27 PM CURRENT SMOKER REINIER GAYLE [facility] Tobacco Use History This section includes a history of the smoking, or tobacco-related health factors, that were collected on or before the date of the Encounter. The data comes from the [place] facility where the Encounter took place. Date/Time Smoking Status/Tobacco Use Comment F acility Jul 01, 2021 08:55 PM VA-VAAES TOBACCO U SE CURRENT NRT DECLINE [facility] Jul 01, 2021 02:41 PM CURRENT SMOKER REINIER GAYLE [facility] Dec 08, 2020 08:45 PM VA-TOBACCO USER EVERY DAY [facility] Dec 08, 2020 08:45 PM VA-VAAES TOBACCO U SE CURRENT NRT DECLINE [facility] Dec 08, 2020 06:58 PM VA-TOBACCO FORMER USER [facility] Apr 04, 2015 03:47 PM CURRENT SMOKER Less than a pack a day [facility] Apr 04, 2015 03:47 PM V1-PT NOT INTEREST ED IN QUIT TOBACCO USE [facility] Advance Directives: All historical [...] Nov 18, 2017 ADVANCE DIRECTIVE RADHA FERNANDEZ [facility] Jul 08, 2017 ADVANCE DIRECTIVE DISCUSSION PURNIMA ROJAS [facility] Radiology Reports: +/- 30 [...] 11:15 AM UROGRAM RETROGRADE : GALINA LOYD [id number] -1945 M Exm Date: DEC 16, 2023@11:15 Req Phys: CORBY OSORIO Pat Loc: [facility] G2RD (Req'g Img Loc: XRAY (OOS) Service: [place] [address] (Case [id number] COMPLETE) UROGRAM RETROGRADE (RAD Detailed) CPT:88756 Contrast Media : Non-ionic Iodinated Proc Modifiers : OPERATING ROOM EXAM Reason for Study: bilat ureteroscopy laser litho, stent placement Clinical History: calculus of kidney Report Status: Verified Date Reported: DEC 16, 2023 Date Verified: DEC 16, 2023 Customer Care Coordinator E-Sig:/ES/BENJAMÍN PIMENTEL Report: UROGRAM RETROGRADE 12/16/2023 11:15 AM Impression: Fluoroscopy performed during urology service procedure. FINDINGS: Procedure performed with the C-arm fluoroscopy . Fluoroscopy time 55 seconds, dose 9 mGy Fluoroscopic images consistent with history of bilateral ureteroscopy and stent placement. Labels from bilateral CPM Braxis Contour double-J ureteral stents placed on the scanned worksheet Please see procedure note for further details. HISTORY: bilat ureteroscopy laser litho, stent placement, Primary Diagnostic Code: NO IMMEDIATE ATTENTION REQUIRED Primary Interpreting Staff: BENJAMÍN PIMENTEL, Staff Physician (Customer Care Coordinator) /BENJAMÍN HYLTON [facility] Pathology Reports: +/- 30 days of the [...] AM LR MICROBIOLOGY RE PORT: Reporting Lab: [facility] [CLIA# [id number]] [address] [place] [address] Accession [UID]: [id number] [[id number]] Received: Nov 30, 2023@19:53 Collection sample: URINE CLEAN CATCH Collection date: Nov 29, 2023 11:27 Site/Specimen: URINE Provider: CORBY OSORIO Test(s) ordered: CULTURE,URINE CLEAN CATCH..... completed: Dec 02, 2023 13:00 * BACTERIOLOGY FINAL REPORT => Dec 02, 2023 13:01 TECH CODE: [id number] Bacteriology Remark(s): 12/02/23 50,000-99,000 CFU/mL AT LEAST THREE BACTERIAL TYPES PRESENT INDICATING POSSIBLE CONTAMINATION, PLEASE REPEAT COLLECTION. =--=--=--=--=--=--=--=--=--=--= --=--=--=--=--=--=--=--=--=--=- -=--=--=--=--=-- Performing Laboratory: Bacteriology Report Performed By: SONYA GAYLE [facility] [CLIA# [id number]] [address] [place] [address] [facility] Encounter Notes: All associated encounter notes This section contains the clinical notes associated to the Encounter. Date/Time Encounter Note(s) Provider Source Dec 17, 2023 08:21 AM TELEPHONE ENCOUNTE R NOTE: LOCAL TITLE: POST-OP TELEPHONE NOTE STANDARD TITLE: TELEPHONE ENCOUNTER NOTE DATE OF NOTE: DEC 17, 2023@08:21 ENTRY DATE: DEC 17, 2023@08:22:49 AUTHOR: LIANE HAIDER COSIGNER: URGENCY: STATUS: COMPLETED Work Phone: Cell Phone: Date of Procedure: 12/16/23 Procedure: cystoscopy and ureteroscopy Message was left for patient No Provider notified regarding patient condition? No Comment: Does the patient have procedural pain? Yes Pain 5 Location: stomach Medication used: Tylenol given Non-pharmacological interventions: rest Effectiveness of pain relief regimen: slept well after IV Site Pain,drainage,redness or swelling? No Comments: Gastrointestinal Tolerating regular diet Yes Nausea or vomiting No Bowel movement Pain,bleeding,diarrhea No Comment: Genitourinary Voiding Yes Description of urine: reddish to start and getting more yellow Comment: told to have patient increase fluids, at least 2L a day Other Patient Concerns: Concerns:Comment: Spoke with , Darrel. She said he woke up in pain last night and she gave him Tylenol and he was able to sleep. He was confused post anesthesia but clearing. Reminded to call if there are any issues and she said we are doing fine. I will increase his fluids. /vivian/ LIANE HAIDER Signed: 12/17/2023 08:32 LIANE HAIDER [facility]
--- OUTSIDE RECORDS SUMMARY | 2024-05-24 19:20 | XMS_ITS | Encounter Summary ---
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 Date/Time Encounter Type Encounter Description Reason Provider Source Dec 16, 2023 11:04 AM CYSTO/URETERO W/LITHOTRIPSY EVENT (HISTORICAL) KORY WEAVER Encounter Template Text not used by [place] Plan of Treatment: Future Appointments (+ 6 months) and Future Tests (+/- 45 days) The Plan of Treatment section includes future care activities for the patient from all [place] treatmentfacilities. This section includes future appointments and future orders which are active, pending or scheduled. Future Appointments This section includes appointments that were scheduled to occur 6 months from the date of the Encounter, up to a maximum of 20 appointments. The data comes from all [place] treatment facilities. Appointment Date/Time Appointment Type Appointme [...] 10, 2024 01:30 PM AMBULATORY - MEDICINE [facility] Apr 10, 2024 01:31 PM AMBULATORY - NONE [place] [facility] Apr 11, 2024 10:00 AM AMBULATORY - SURGERY [facility] Apr 11, 2024 10:01 AM [place] [facility] Apr 21, 2024 10:30 AM AMBULATORY - NONE [place] [facility] May 03, 2024 02:30 PM AMBUL[place]ORY [place] [facility] May 04, 2024 10:30 AM [place] [facility] May 04, 2024 11:00 AM AMBUL[place]ORY [place] [facility] May 04, 2024 12:30 PM AMBULATORY - NONE [place] [facility] May 04, 2024 01:00 PM AMBUL[place]ORY [place] [facility] May 08, 2024 02:30 PM AMBULATORY - MEDICINE [facility] May 08, 2024 02:31 PM AMBULATORY - NONE [place] [facility] May 16, 2024 10:00 AM AMBULATORY - SURGERY [facility] May 16, 2024 10:01 AM AMBULATORY - SURGERY [facility] Active, Pending, and Scheduled Orders This section includes a listing of several types of active, pending, and scheduled orders, including clinic medications orders, diagnostic test orders, procedure orders and consult orders; where the start date of the order is 45 days before the date of the Encounter or 45 days after the date of theEncounter. The data comes from all [place] treatment facilities. Test Date/Time Test Type Test Details Facility Name January 18, 2024 12:13 PM Consult Order [facility] Cons [facility] Surgical Procedures: All associated to the encounter This section includes all Surgical Procedures and Surgical Procedure Notes associated to the Encounter. Surgical Procedures This section includes all Surgical Procedures associated to the Encounter. Surgical Procedure Date/Time Procedure Procedure Type Procedure Qualifiers Provider Source Dec 16, 2023 11:04 AM BILATERAL URETEROSCOPY LASER LITHOTRIPSY STENT PLACEMENT CYSTO/URETERO W/LITHOTRIPSY GRECIA CHEUNG [facility] Surgical Notes This section includes all Surgical Notes associated to the Procedure. Date/Time Dec 16, 2023 11:04 AM OPERATIVE REPORT: LOCAL TITLE: OPERATION REPORT STANDARD TITLE: OPERATIVE REPORT DATE OF NOTE: DEC 16, 2023@11:04 ENTRY DATE: DEC 16, 2023@13:34:03 SURGEON: SON CHEUNG ATTENDING: CORBY OSORIO URGENCY: STATUS: COMPLETED SUBJECT: Case #: [id number] GALINA LOYD/[id number] [facility] 2023 OPERATION REPORT DATE OF PROCEDURE: DEC 16, 2023 PROCEDURE (S): bilateral ureteroscopy, right stone extraction, left laser lithotripsy, bilateral stent exchange PRE-OP DX: bilateral renal stones POST-OP DX: same SURGEON(S): Da Cheung ANESTHESIA: General, ETT EBL: 5cc MEDICATIONS ADMINISTERED [...] Follow up with [facility] in 3 months INDICATIONS: Mr. Galina Loyd is a 78 year old MALE with a history of bilateral nephrolithiasis. He is s/p right PCNL and left URS with bilateral stent placement at [facility] in 2023 with small residual fragment on the right and numerous fragments remaining on the left. He presents today for bilateral ureteroscopy, laser lithotripsy, clearance of bilateral stones and possible bilateral ureteral stent exchange. Anticoagulation - none Patient denies fevers/chills, N/V, SOB, chest pain, or dysuria. PROCEDURE DESCRIPTION: The patient was identified in the pre-operative holding area. Consent was verified. The procedure was bilateral, no site marking required. The patient was taken to the operating room and placed supine on the operating table. General anesthesia was induced. The patient was then moved to the dorsal lithotomy position and prepped and draped in the usual sterile fashion. A timeout was performed involving all members of the OR team confirming the patient's identity and planned procedure. Preoperative antibiotics were administered. A 22 Fr rigid cystoscope was inserted into the bladder. Bladder urine was noted to contain a significant amount of sediment. The existing right ureteral stent was visualized and noted to be moderately encrusted. A stent grasper was inserted and the stent was removed to the urethral meatus. A sensor wire was inserted through the stent into the renal pelvis under fluoroscopic guidance via the stent and the stent was removed. A disposable flexible ureteroscope was inserted and navigated to the right ureteral orifice and attempted to advance up the right ureter but met significant resistance in the narrow distal right ureter. The scope was unable to advance past the distal ureter so a second wire was introduced and the inner sheath of an 11/13 access sheath was advanced into the right ureter under fluoroscopic guidance to dilate the ureter. The inner sheath was removed and attempts were made to pass the 11/13 sheath into the ureter but could not advance past the distal ureter. The sheath was removed and the flexible ureteroscope was advanced over the second wire under fluoroscopic guidance into the right renal pelvis. No ureteral stones were encountered. Two ~2mm right renal pelvis stones were encountered and removed using the N-lamonte basket. Remaining tiny stone fragments were left, likely encrustation from the prior stent. Retrograde pyelography was performed to assist in inspecting the entire pyelocaliceal system. No further stones were found. The ureteroscope was slowly removed to inspect the ureter, no further stones were found. We elected to leave a stent due to ureteral edema from difficult entry into the ureter. The cystoscope was backloaded over the wire, and a 7 Fr x V cm ureteral stent was inserted over the wire. The proximal coil was visualized on fluoroscopy to be within the renal pelvis, and the distal coil was seen with direct visualization in the bladder. The existing left ureteral stent was then visualized and grasped with a stent grasper. This was also moderately encrusted. The stent was removed to the urethral meatus. A sensor wire was inserted through the stent into the renal pelvis under fluoroscopic guidance via the stent and the stent was removed. A disposable flexible ureteroscope was inserted and navigated to the left ureteral orifice and attempted to advance up the left ureter but met significant resistance in the narrow distal left ureter. The scope was unable to advance past the distal ureter so a second wire was introduced and the inner sheath of an 11/13 access sheath was advanced into the left ureter under fluoroscopic guidance to dilate the ureter. The inner sheath was removed and attempts were made to pass the 11/13 sheath into the ureter but could not advance past the distal ureter. The sheath was removed and the flexible ureteroscope was advanced over the second wire under fluoroscopic guidance into the left renal pelvis. There were innumerable small fragments in one of the calyces. The Aiden Holmium laser was used to dust the remaining fragments to sub-mm size. No additional large stone fragments were identified. Retrograde pyelography was performed to assist in inspecting the entire pyelocaliceal system. The ureteroscope was slowly removed to inspect the ureter, no ureteral stones were encountered. We elected to leave a stent due to ureteral edema. The cystoscope was backloaded over the wire, and a 7 Fr x V cm ureteral stent was inserted over the wire. The proximal coil was visualized on fluoroscopy to be within the renal pelvis, and the distal coil was seen with direct visualization in the bladder. The bladder was emptied. The cystoscope was removed. The patient tolerated the procedure well and was awakened from anesthesia with no adverse events. The patient was taken to the recovery area in stable condition. Dr. Osorio, the attending surgeon, was present for the entire procedure. /vivian/ Son Bobby. MD [facility] Resident Signed: 12/17/2023 08:40 /huber OSORIO MD Staff Surgeon, Urology Cosigned: 12/17/2023 08:59 SON CHEUNG Dec 16, 2023 11:04 AM NURSING OPERATIVE NOTE: LOCAL TITLE: NURSE INTRAOPERATIVE REPORT STANDARD TITLE: NURSING OPERATIVE NOTE DATE OF NOTE: DEC 16, 2023@11:04 ENTRY DATE: DEC 16, 2023@13:34:03 AUTHOR: KORY WEAVER EXP COSIGNER: URGENCY: STATUS: COMPLETED SUBJECT: Case #: [id number] Operating Room: OR 4 Surgical Priority: ELECTIVE Patient in Hold: NOT ENTERED Patient in OR: DEC 16, 2023 11:04 Operation Begin: DEC 16, 2023 11:31 Operation End: DEC 16, 2023 13:24 Patient Out OR: DEC 16, 2023 13:34 Major Operations Performed: Primary: BILATERAL URETEROSCOPY LASER LITHOTRIPSY STENT PLACEMENT Robotic Assistance (Y/N): NO Other: RIGHT BASKET EXTRACTION STON FRAGMENT Wound Classification: CLEAN/CONTAMINATED Operation Disposition: OUTPATIENT/DISCHARGE Discharged Via: STRETCHER Primary Surgeon: SON CHEUNG Senior Catering Sales Manager: SHONDA GATICA Attending Surgeon: CORBY OSORIO Second Assist: N/A Turkish Line Attendant: ALICIA TELLEZ Orchard Pruner Anesth: N/A OR Support Personnel: Scrubbed Circulating LYN ROTH () KORY WEAVER () MIKAELA MANCUSO () SARAH SMITH () ZAN MILLER JR () Other Persons in OR: KYLE DELGADILLO (RADIOLOGY) Preop Mood: RELAXED Preop Consc: ALERT-ORIENTED Preop Skin Integ: WARM, DRY & INTACT Preop [place]: N/A --- Time Out Checklist --- Confirm Correct Patient Identity: YES Confirm Procedure To Be Performed: YES Confirm Site of the Procedure, Including Laterality: YES Confirm Valid Consent: YES, i-MED Confirm Patient Position: YES Confirm Procedure Site has been Marked Appropriately and that the Site of the Clovis is Visible After Prep and Draping: YES Pertinent Medical Images Have Been Confirmed: YES Correct Medical Implant(s) is Available: YES Availability of Special Equipment: YES Appropriate Antibiotic Prophylaxis: YES Appropriate Deep Vein Thrombosis Prophylaxis: YES Blood Availability: NOT INDICATED Checklist Comment: NO COMMENTS ENTERED Time-Out Document Completed By: KORY WEAVER Time-Out Completed: DEC 16, 2023@11:14 Skin Prep By: KORY WEAVER Skin Prep Agent: DYNAHEX Preop Surgical Site Hair Removal by: N/A Surgical Site Hair Removal Method: NO HAIR REMOVED Hair Removal Comments: NO COMMENTS ENTERED Surgery Position(s): LITHOTOMY Placed: N/A Electrocautery Unit: N/A ESU Coagulation Range: N/A ESU Cutting Range: N/A Electroground Position(s): UNDERBODY Anesthesia Technique(s): GENERAL Thermal Unit: VIKI UPPER Temperature: N/A Time On: N/A Time Off: N/A Prosthesis Installed: Item: CONTOUR STENT 7FR VARIABLE Implant Sterility Checked (Y/N): YES Sterility Expiration Date: APR 19, 2026 RN Tie Knitter Helper: SARAH SMITH Vendor: [employer] Model: [id number] Lot Number: [id number] Serial Number: na Sterile Resp: INTERNET SALES ASSOCIATE Size: 7F X 22CM-30CM Quantity: 2 Provider Read Back Performed: YES Medications: IOPAMIDOL INJ 61% Time Administered: DEC 16, 2023 11:31 Route: OTHER Dosage: 20 ML Ordered By: CORBY OSORIO Admin By: CORBY OSORIO Comments: N/A Irrigation Solution(s): NORMAL SALINE Possible Item Retention: YES Sponge Final Count Correct: YES Sharps Final Count Correct: YES Instrument Final Count Correct: YES Wound Sweep: YES Wound Sweep Comment: NO COMMENTS ENTERED Intra-Operative X-Ray: YES Intra-Operative X-Ray Comment: NO COMMENTS ENTERED Counter: MIKAELA MANCUSO Counts Verified By: KORY WEAVER Blood Loss: 5 ml Urine Output: Postoperative Mood: RELAXED Postoperative Consciousness: MEDICATED/EASILY AROUSED Postoperative Skin Integrity: WARM, DRY & INTACT Laser Performed: HOLMIUM Laser Type: HOLMIUM-YAG Laser Start Time: DEC 16, 2023 12:44Laser End Date: DEC 16, 2023 13:18 Laser Test Fire: 2 Laser Delivery System: LASER FIBER Pulse Mode: N/A Power/Average Power: N/A Interval/Repetition Rate: 15 Total Joules Delivered: 4980 Bennett Delivered: 40 Wave Form: N/A Pulse Width: N/A Energy Joules: 1 Duration: N/A Laser On Standby: 1 Laser Off and Galvan Secured : 1 Patient Precautions: EYE PADS TAPE SAFETY GLASSES/GOOGLES MOIST DRAPES WATER AVAILABLE Personnel Precautions: SAFETY GLASSES USED SIGNAGE ON DOORS WITH APPROPRIATE WAVE LENGTH Sequential Compression Device: YES Immediate Use Steam Sterilization Episodes: Contamination: 0 SPS Processing/OR Management Issues: 0 Emergency Case: 0 No Better Option: 0 Loaner or Short Notice Instrument: 0 Decontamination of Instruments Contaminated During the Case: 0 Nursing Care Comments: GREETED PT IN PREOP. AWAKE ALERT ORIENTED. H&P AND CONSENT VERIFIED. NPO SINCE MIDNIGHT. NO METAL. NO PAIN. NORMAL ROM. THREE OPEN AREAS ON SACRUM AND BILATERAL ISCHIAL TUBEROSITIES COVERED IN MEPILEX. PT VERBALIZED UNDERSTANDING OF PROCEDURE AND TIMEOUT PROCESS. PT TRANSPORTED TO OR VIA STRETCHER WITH ANESTHESIA. PT HEAD ON PILLOW. ARMS ON BILATERAL GEL PADDED ARMBOARDS WITH PADDED SAFETY STRAPS LESS THAN 90 DEGREES. ALL IV PORTS PADDED. PADDED SAFETY STRAP ACROSS WAIST. LEGS UP IN STIRRUPS CHECKED BY SURGEON AND RESIDENT. MEPILEX DRESSINGS PROTECTED WITH STERILE PLASTIC DRAPE. UPPER VIKI IN PLACE. SCD ON AND RUNNING. TIMEOUT PERFORMED BY SURGICAL TEAM WITH PT PARTICIPATION. PREPPED AND DRAPED IN STERILE FASHION. DEBRIEFING PERFORMED BY SURGICAL TEAM. PT TRANSPORTED TO PACU VIA STRETCHER WITH ANESTHESIA. /vivian/ KORY WEAVER RN Signed: 12/16/2023 13:35 KORY WEAVER Lab Results: +/- 30 days of the encounter This section includes the Chemistry and Hematology Lab Results on record with [place] for the patient. Radiology Reports and Pathology [...] Nov 24, 2023 05:48 PM Reporting Lab: [facility] [address] [facility] [address] Performing Lab: [facility] [address] [facility] [address] URINE COLOR Light-Mellette NOT DEFINED SPECIFIC GRAVITY 1.013 1.003-1.030 UROBILINOGEN [...] 136/84 [address] [facility] Social History: Smoking Status (Most current) and Tobacco Use (All prior to encounter date) This section includes the most current, and the historical, smoking and tobacco- related health factors from the [place] facility where the Encounter took place. Current Smoking Status This section includes the most current smoking, or tobacco-related health factor, from the [place] facility where the Encounter took place. Date/Time Current Smoking Status Comment Nataly ity Jul 17, 2021 02:27 PM CURRENT SMOKER REINIER GAYLE [facility] Tobacco Use History This section includes a history of the smoking, or tobacco-related health factors, that were collected on or before the date of the Encounter. The data comes from the [place] facility where the Encounter took place. Date/Time [...] ALL of a patient's completed or amended [place] Advance and Rescinded Directives. The entries below indicate that a directive exists for the patient, but an actual copy is not included with this document. The data comes from all [place] facilities. Date Advance Directives Provider Source Nov 18, 2017 ADVANCE [address] [facility] Jul 08, 2017 ADVANCE [...] the Encounter. The data comes from all [place] treatment facilities. Date/Time Radiology Report Provider Source Dec 16, 2023 11:15 AM UROGRAM RETROGRADE : EVERTGALINA [id number] -[id number] M Exm Date: DEC 16, 2023@11:15 Req Phys: CORBY OSORIO Pat Loc: [facility] G2RD (Req'g Img Loc: XRAY (OOS) Service: [place] [address] (Case [id number] COMPLETE) UROGRAM RETROGRADE (RAD Detailed) CPT:67394 Contrast Media : Non-ionic Iodinated Proc Modifiers : OPERATING ROOM EXAM Reason for Study: bilat ureteroscopy laser litho, stent placement Clinical History: calculus of kidney Report Status: Verified Date Reported: DEC 16, 2023 Date Verified: DEC 16, 2023 Tie Knitter Helper E-Sig:/ES/BENJAMÍN PIMENTEL Report: UROGRAM RETROGRADE 12/16/2023 11:15 AM Impression: Fluoroscopy performed during urology service procedure. FINDINGS: Procedure performed with the C-arm fluoroscopy . Fluoroscopy time 55 seconds, dose 9 mGy Fluoroscopic images consistent with history of bilateral ureteroscopy and stent placement. Labels from bilateral US [employer] Contour double-J ureteral stents placed on the scanned worksheet Please see procedure note for further details. HISTORY: bilat ureteroscopy laser litho, stent placement, Primary Diagnostic Code: NO IMMEDIATE ATTENTION REQUIRED Primary Interpreting Staff: BENJAMÍN PIMENTEL, Staff Physician (Tie Knitter Helper) /BENJAMÍN HYLTON [facility] Pathology [...] the Encounter. The data comes from all [place] treatment facilities. Date/Time Pathology Report Provider Source Nov 29, 2023 11:27 AM LR MICROBIOLOGY RE PORT: Reporting Lab: [facility] [CLIA# [id number]] [address] [place] [address] Accession [UID]: [id number] [[id number]] Received: Nov 30, 2023@19:53 Collection sample: URINE CLEAN CATCH Collection date: Nov 29, 2023 11:27 Site/Specimen: URINE Provider: CORBY OSORIO Test(s) ordered: CULTURE,URINE CLEAN CATCH..... completed: Dec 02, 2023 13:00 * BACTERIOLOGY FINAL REPORT => Dec 02, 2023 13:01 TECH CODE: [id number] Bacteriology Remark(s): 12/02/23 50,000-99,000 CFU/mL AT LEAST THREE BACTERIAL TYPES PRESENT INDICATING POSSIBLE CONTAMINATION, PLEASE REPEAT COLLECTION. =--=--=--=--=--=--=--=--=--=--= --=--=--=--=--=--=--=--=--=--=- -=--=--=--=--=-- Performing Laboratory: Bacteriology Report Performed By: [facility]# [id number]] [address] [place] [address] [facility] Encounter Notes: All associated encounter notes This section contains the clinical notes associated to the Encounter. Date/Time Encounter Note(s) Provider Source Dec 16, 2023 11:04 AM NURSING OPERATIVE NOTE: LOCAL TITLE: NURSE INTRAOPERATIVE REPORT STANDARD TITLE: NURSING OPERATIVE NOTE DATE OF NOTE: DEC 16, 2023@11:04 ENTRY DATE: DEC 16, 2023@13:34:03 AUTHOR: KORY WEAVER EXP COSIGNER: URGENCY: STATUS: COMPLETED SUBJECT: Case #: [id number] Operating Room: OR 4 Surgical Priority: ELECTIVE Patient in Hold: NOT ENTERED Patient in OR: DEC 16, 2023 11:04 Operation Begin: DEC 16, 2023 11:31 Operation End: DEC 16, 2023 13:24 Patient Out OR: DEC 16, 2023 13:34 Major Operations Performed: Primary: BILATERAL URETEROSCOPY LASER LITHOTRIPSY STENT PLACEMENT Robotic Assistance (Y/N): NO Other: RIGHT BASKET EXTRACTION STON FRAGMENT Wound Classification: CLEAN/CONTAMINATED Operation Disposition: OUTPATIENT/DISCHARGE Discharged Via: STRETCHER Primary Surgeon: SON CHEUNG Senior Catering Sales Manager: SHONDA GATICA Attending Surgeon: CORBY OSORIO Second Assist: N/A Turkish Line Attendant: ALICIA TELLEZ Orchard Pruner Anesth: N/A OR Support Personnel: Scrubbed Circulating LYN ROTH () KORY WEAVER () MIKAELA MANCUSO () SARAH SMITH () ZAN MILLER JR () Other Persons in OR: KYLE DELGADILLO (RADIOLOGY) Preop Mood: RELAXED Preop Consc: ALERT-ORIENTED Preop Skin Integ: WARM, DRY & INTACT Preop [place]: N/A --- Time Out Checklist --- Confirm Correct Patient Identity: YES Confirm Procedure To Be Performed: YES Confirm Site of the Procedure, Including Laterality: YES Confirm Valid Consent: YES, i-MED Confirm Patient Position: YES Confirm Procedure Site has been Marked Appropriately and that the Site of the Clovis is Visible After Prep and Draping: YES Pertinent Medical Images Have Been Confirmed: YES Correct Medical Implant(s) is Available: YES Availability of Special Equipment: YES Appropriate Antibiotic Prophylaxis: YES Appropriate Deep Vein Thrombosis Prophylaxis: YES Blood Availability: NOT INDICATED Checklist Comment: NO COMMENTS ENTERED Time-Out Document Completed By: KORY WEAVER Time-Out Completed: DEC 16, 2023@11:14 Skin Prep By: KORY WEAVER Skin Prep Agent: DYNAHEX Preop Surgical Site Hair Removal by: N/A Surgical Site Hair Removal Method: NO HAIR REMOVED Hair Removal Comments: NO COMMENTS ENTERED Surgery Position(s): LITHOTOMY Placed: N/A Electrocautery Unit: N/A ESU Coagulation Range: N/A ESU Cutting Range: N/A Electroground Position(s): UNDERBODY Anesthesia Technique(s): GENERAL Thermal Unit: VIKI UPPER Temperature: N/A Time On: N/A Time Off: N/A Prosthesis Installed: Item: CONTOUR STENT 7FR VARIABLE Implant Sterility Checked (Y/N): YES Sterility Expiration Date: APR 19, 2026 MAYA Tie Knitter Helper: SARAH SMITH Vendor: [employer] Model: [id number] Lot Number: [id number] Serial Number: na Sterile Resp: INTERNET SALES ASSOCIATE Size: 7F X 22CM-30CM Quantity: 2 Provider Read Back Performed: YES Medications: IOPAMIDOL INJ 61% Time Administered: DEC 16, 2023 11:31 Route: OTHER Dosage: 20 ML Ordered By: CORBY OSORIO Admin By: CORBY OSORIO Comments: N/A Irrigation Solution(s): NORMAL SALINE Possible Item Retention: YES Sponge Final Count Correct: YES Sharps Final Count Correct: YES Instrument Final Count Correct: YES Wound Sweep: YES Wound Sweep Comment: NO COMMENTS ENTERED Intra-Operative X-Ray: YES Intra-Operative X-Ray Comment: NO COMMENTS ENTERED Counter: MIKAELA MANCUSO Counts Verified By: KORY WEAVER Blood Loss: 5 ml Urine Output: Postoperative Mood: RELAXED Postoperative Consciousness: MEDICATED/EASILY AROUSED Postoperative Skin Integrity: WARM, DRY & INTACT Laser Performed: HOLMIUM Laser Type: HOLMIUM-YAG Laser Start Time: DEC 16, 2023 12:44Laser End Date: DEC 16, 2023 13:18 Laser Test Fire: 2 Laser Delivery System: LASER FIBER Pulse Mode: N/A Power/Average Power: N/A Interval/Repetition Rate: 15 Total Joules Delivered: 4980 Bennett Delivered: 40 Wave Form: N/A Pulse Width: N/A Energy Joules: 1 Duration: N/A Laser On Standby: 1 Laser Off and Galvan Secured : 1 Patient Precautions: EYE PADS TAPE SAFETY GLASSES/GOOGLES MOIST DRAPES WATER AVAILABLE Personnel Precautions: SAFETY GLASSES USED SIGNAGE ON DOORS WITH APPROPRIATE WAVE LENGTH Sequential Compression Device: YES Immediate Use Steam Sterilization Episodes: Contamination: 0 SPS Processing/OR Management Issues: 0 Emergency Case: 0 No Better Option: 0 Loaner or Short Notice Instrument: 0 Decontamination of Instruments Contaminated During the Case: 0 Nursing Care Comments: GREETED PT IN PREOP. AWAKE ALERT ORIENTED. H&P AND CONSENT VERIFIED. NPO SINCE MIDNIGHT. NO METAL. NO PAIN. NORMAL ROM. THREE OPEN AREAS ON SACRUM AND BILATERAL ISCHIAL TUBEROSITIES COVERED IN MEPILEX. PT VERBALIZED UNDERSTANDING OF PROCEDURE AND TIMEOUT PROCESS. PT TRANSPORTED TO OR VIA STRETCHER WITH ANESTHESIA. PT HEAD ON PILLOW. ARMS ON BILATERAL GEL PADDED ARMBOARDS WITH PADDED SAFETY STRAPS LESS THAN 90 DEGREES. ALL IV PORTS PADDED. PADDED SAFETY STRAP ACROSS WAIST. LEGS UP IN STIRRUPS CHECKED BY SURGEON AND RESIDENT. MEPILEX DRESSINGS PROTECTED WITH STERILE PLASTIC DRAPE. UPPER VIKI IN PLACE. SCD ON AND RUNNING. TIMEOUT PERFORMED BY SURGICAL TEAM WITH PT PARTICIPATION. PREPPED AND DRAPED IN STERILE FASHION. DEBRIEFING PERFORMED BY SURGICAL TEAM. PT TRANSPORTED TO PACU VIA STRETCHER WITH ANESTHESIA. /vivian/ KORY WEAVER RN Signed: 12/16/2023 13:35 KORY WEAVER [facility] Dec 16, 2023 11:04 AM OPERATIVE REPORT: LOCAL TITLE: OPERATION REPORT STANDARD TITLE: OPERATIVE REPORT DATE OF NOTE: DEC 16, 2023@11:04 ENTRY DATE: DEC 16, 2023@13:34:03 SURGEON: SON CHEUNG ATTENDING: CORBY OSORIO URGENCY: STATUS: COMPLETED SUBJECT: Case #: [id number] GALINA LOYD/[id number]/Nov OPERATION REPORT DATE OF PROCEDURE: DEC 16, 2023 PROCEDURE (S): bilateral ureteroscopy, right stone extraction, left laser lithotripsy, bilateral stent exchange PRE-OP DX: bilateral renal stones POST-OP DX: same SURGEON(S): Da Cheung ANESTHESIA: General, ETT EBL: 5cc MEDICATIONS ADMINISTERED INTRA-OPERATIVELY: Contrast Agent(s) (type/amount): 20cc omnipaque IVF: see anesthesia note U.O.: NA DRAINS: Bilateral 7Fr variable ureteral stents SPECIMENS SENT TO PATHOLOGY: none FINDINGS: - difficult ureteral access bilaterally due to narrow distal ureteral lumen. Unable to place 11/13 access sheath bilaterally - two ~2mm right renal stones basket extracted - innumerable small left renal stone fragments dusted to sub-mm dust - bilateral 7Fr xVcm ureteral stents placed COMPLICATIONS: none DISPOSITION: Stable to PACU Plan: - Stent removal in 7 days - Follow up with [facility] in 3 months INDICATIONS: Mr. Galina Loyd is a 78 year old MALE with a history of bilateral nephrolithiasis. He is s/p right PCNL and left URS with bilateral stent placement at [facility] in 2023 with small residual fragment on the right and numerous fragments remaining on the left. He presents today for bilateral ureteroscopy, laser lithotripsy, clearance of bilateral stones and possible bilateral ureteral stent exchange. Anticoagulation - none Patient denies fevers/chills, N/V, SOB, chest pain, or dysuria. PROCEDURE DESCRIPTION: The patient was identified in the pre-operative holding area. Consent was verified. The procedure was bilateral, no site marking required. The patient was taken to the operating room and placed supine on the operating table. General anesthesia was induced. The patient was then moved to the dorsal lithotomy position and prepped and draped in the usual sterile fashion. A timeout was performed involving all members of the OR team confirming the patient's identity and planned procedure. Preoperative antibiotics were administered. A 22 Fr rigid cystoscope was inserted into the bladder. Bladder urine was noted to contain a significant amount of sediment. The existing right ureteral stent was visualized and noted to be moderately encrusted. A stent grasper was inserted and the stent was removed to the urethral meatus. A sensor wire was inserted through the stent into the renal pelvis under fluoroscopic guidance via the stent and the stent was removed. A disposable flexible ureteroscope was inserted and navigated to the right ureteral orifice and attempted to advance up the right ureter but met significant resistance in the narrow distal right ureter. The scope was unable to advance past the distal ureter so a second wire was introduced and the inner sheath of an 11/13 access sheath was advanced into the right ureter under fluoroscopic guidance to dilate the ureter. The inner sheath was removed and attempts were made to pass the 11/13 sheath into the ureter but could not advance past the distal ureter. The sheath was removed and the flexible ureteroscope was advanced over the second wire under fluoroscopic guidance into the right renal pelvis. No ureteral stones were encountered. Two ~2mm right renal pelvis stones were encountered and removed using the N-lamonte basket. Remaining tiny stone fragments were left, likely encrustation from the prior stent. Retrograde pyelography was performed to assist in inspecting the entire pyelocaliceal system. No further stones were found. The ureteroscope was slowly removed to inspect the ureter, no further stones were found. We elected to leave a stent due to ureteral edema from difficult entry into the ureter. The cystoscope was backloaded over the wire, and a 7 Fr x V cm ureteral stent was inserted over the wire. The proximal coil was visualized on fluoroscopy to be within the renal pelvis, and the distal coil was seen with direct visualization in the bladder. The existing left ureteral stent was then visualized and grasped with a stent grasper. This was also moderately encrusted. The stent was removed to the urethral meatus. A sensor wire was inserted through the stent into the renal pelvis under fluoroscopic guidance via the stent and the stent was removed. A disposable flexible ureteroscope was inserted and navigated to the left ureteral orifice and attempted to advance up the left ureter but met significant resistance in the narrow distal left ureter. The scope was unable to advance past the distal ureter so a second wire was introduced and the inner sheath of an 11/13 access sheath was advanced into the left ureter under fluoroscopic guidance to dilate the ureter. The inner sheath was removed and attempts were made to pass the 11/13 sheath into the ureter but could not advance past the distal ureter. The sheath was removed and the flexible ureteroscope was advanced over the second wire under fluoroscopic guidance into the left renal pelvis. There were innumerable small fragments in one of the calyces. The Firm58 Holmium laser was used to dust the remaining fragments to sub-mm size. No additional large stone fragments were identified. Retrograde pyelography was performed to assist in inspecting the entire pyelocaliceal system. The ureteroscope was slowly removed to inspect the ureter, no ureteral stones were encountered. We elected to leave a stent due to ureteral edema. The cystoscope was backloaded over the wire, and a 7 Fr x V cm ureteral stent was inserted over the wire. The proximal coil was visualized on fluoroscopy to be within the renal pelvis, and the distal coil was seen with direct visualization in the bladder. The bladder was emptied. The cystoscope was removed. The patient tolerated the procedure well and was awakened from anesthesia with no adverse events. The patient was taken to the recovery area in stable condition. Dr. Osorio, the attending surgeon, was present for the entire procedure. /vivian/ Son Cheung MD Urology Resident Signed: 12/17/2023 08:40 /vivian/ Pb OSORIO MD Staff Surgeon, Urology Cosigned: 12/17/2023 08:59 SON CHEUNG [facility]
--- OUTSIDE RECORDS SUMMARY | 2024-05-24 19:21 | XMS_ITS ---
Author Name [facility] [place] Organization [place] Address [address] [place] [address] Care Team Providers Care Rn First Assist Name Role Phone KYRA VELASQUEZ Primary Care [...] Patient's Relationship to Policy Ervin [facility] (WNR) MEDICARE ADVANTAGE MCR(W NR) * Aug 23, 2023 [id number] ANNALISA LOYD ITE PATIENT [facility] (WNR) MEDICARE ADVANTAGE [facility] (WNR) Aug 23, 2020 [id number] [phone] ANNALISA LOYD ITE PATIENT [facility] (WNR) MEDICARE ADVANTAGE MCR(W NR) Aug 23, 2012 [id number] ANNALISA LOYD ITE PATIENT Selected Encounter This section includes the information on record at [place] for the Encounter. Date/Time Encounter Type Encounter Description Reason Pro vider Source Feb 16, 2024 11:31 AM Outpatient Encounter ADMIN PAT ACTIVTIES (MASNONCT) IHE Encounter Template Text not used by [place] Plan of Treatment: Future Appointments (+ 6 months) and Future Tests (+/- 45 days) The Plan of Treatment section includes future care activities for the patient from all [place] treatmentfacilities. This section includes future appointments and future orders which are active, pending or scheduled. Future Appointments This section includes appointments that were scheduled to occur 6 months from the date of the Encounter, up to a maximum of 20 appointments. The data comes from all [place] treatment facilities. Appointment Date/Time Appointment Type Appointme [...] 06, 2024 01:00 PM AMBULATORY - MEDICINE [facility] Apr 10, 2024 01:30 PM AMBULATORY - MEDICINE [facility] Apr 10, 2024 01:31 PM AM[place]ULATORY - [place]ONE [place] [facility] Apr 11, 2024 10:00 AM AMBULATORY - SURGERY [facility] Apr 11, 2024 10:01 AM AMBULATORY [place] [facility] May 08, 2024 02:30 PM AMBULATORY - MEDICINE [facility] May 08, 2024 02:31 PM AMBULATORY - NONE [place] [facility] May 16, 2024 10:00 AM AMBULATORY - SURGERY [facility] May 16, 2024 10:01 AM [place] [facility] May 19, 2024 08:00 AM AMBULATORY - NONE [facility] Active, Pending, and [...] of theEncounter. The data comes from all [place] treatment facilities. 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 Current Smoking Status This section includes the most current smoking, or tobacco-related health factor, from the [place] facility where the Encounter took place. Date/Time Current Smoking Status Comment Facil ity Jul 17, 2021 02:27 PM CURRENT SMOKER REINIER Bhatia [facility] Tobacco Use History This section includes a history of the smoking, or tobacco-related health factors, that were collected on or before the date of the Encounter. The data comes from the [place] facility where the Encounter took place. Date/Time Smoking Status/Tobacco Use Comment F acility Jul 01, 2021 08:55 PM VA-VAAES TOBACCO U SE CURRENT NRT DECLINE [facility] Jul 01, 2021 02:41 PM CURRENT SMOKER REINIER Bhatia [facility] Dec 08, 2020 08:45 PM VA-TOBACCO [...] ALL of a patient's completed or amended [place] Advance and Rescinded Directives. The entries below indicate that a directive exists for the patient, but an actual copy is not included with this document. The data comes from all [place] facilities. Date Advance Directives Provider Source Nov 18, 2017 ADVANCE DIRECTIVE REBECCARADHA Husam [facility] Jul 08, 2017 ADVANCE [...] the Encounter. The data comes from all [place] treatment facilities. Date/Time Radiology Report Provider Source Feb 21, 2024 11:00 AM RENAL AND BLADDER ULTRASOUND: GALINA LOYD [id number] -[id number] M Exm Date: FEB 21, 2024@11:00 Req Phys: BRITTNEY SOTO Pat Loc: [facility] [place] G2RD (Req'g L Img Loc: ULTRASOUND (OOS) Service: [place] [facility] [place] [address] (Case [id number] COMPLETE) ULTRASOUND RENAL (US Detailed) CPT:05408 Reason for Study: US following ureteral stent removal, eval hydro/stones (Case 56 COMPLETE) ULTRASOUND PELVIS (US Detailed) CPT:63137 Clinical History: Please coordinate with Urology follow up in 3 months Report Status: Verified Date Reported: FEB 21, 2024 Date Verified: FEB 21, 2024 Collections Representative E-Sig:/VIVIAN/BRITTNEY PEDERSEN Report: Ultrasound -- renal/bladder: COMPARISON: Ultrasound (renal/bladder) 01/21/2023, 2021 The right kidney measures 10.1 cm in length. The parenchyma is of normal thickness. In the lower pole sinus fat is a 0.9 cm echogenic shadowing calculus. There is no evidence of a mass or hydronephrosis. The left kidney measures 10.9 cm in length. There are at least 3 echogenic shadowing calcifications in the mid and lower pole sinus fat. Largest of these calcifications measures 1.0 cm. There is mild pelvocaliectasis. There is a 2.9 cm septated cyst a couple of the septations are mildly thickened and echogenic as was noted previously. The bladder has an estimated volume of 250 cc. There is some soft tissue material and floating particulates in the bladder lumen. No bladder calculi are appreciated. (Patient is unable or unwilling to comply with instructions related to breathing and moving.) Impression: 1. 1 right and at least 3 left renal calculi. 2. Mild/moderate left hydronephrosis -- not present on comparison 01/21/2023 study. 3. 2.9 cm septated left renal cyst -- unchanged. 4. Layering particulate material within bladder (debris). Primary Diagnostic Code: SIGNIFICANT ABNORMALITY ATTENTION NEEDED Primary Interpreting Staff: BRITTNEY PEDERSEN, RADIOLOGY ATTENDING (Collections Representative) /BRITTNEY FREIRE [facility] Encounter Notes: All associated encounter notes This section contains the clinical notes associated to the Encounter. Date/Time Encounter Note(s) Provider Source Feb 16, 2024 11:31 AM PHARMACY OUTPATIEN T NOTE: LOCAL TITLE: Pharmacy Outpatient Note STANDARD TITLE: PHARMACY OUTPATIENT NOTE DATE OF NOTE: FEB 16, 2024@11:31 ENTRY DATE: FEB 16, 2024@11:31:57 AUTHOR: KLAUDIA CAMPA EXP COSIGNER: URGENCY: STATUS: COMPLETED Regarding patient's order for: LACTOBACILLUS COMBO TAB This medication is no longer covered under [place] Pharmacy benefit. This item will remain available for providers to document as a non-VA medication. If the patient wishes to continue taking this item it is available to be purchased over the counter at retail stores or pharmacies. At this time we are able to supply LACTOBACILLUS ACIDOPHILUS CAP. If desired by patient or provider, a new order could be placed for LACTOBACILLUS ACIDOPHILUS CAP. The order for LACTOBACILLUS COMBO TAB will be discontinued. /vivian/ KLAUDIA CAMPA PHARMACIST Signed: 02/16/2024 11:32 Receipt Acknowledged By: 02/16/2024 11:37 /vivian/ KLAUDIA VALDIVIA JR, PA-C [facility]
--- OUTSIDE RECORDS SUMMARY | 2024-05-24 19:21 | XMS_ITS ---
Author Name [facility] [place] Organization [place] Address [address] [place] [address] Care Team Providers Care Health Science Specialist Name Role Phone RON KYRA Primary Care [...] Ervin's Name Patient's Relationship to Policy Ervin [facility] (WNR) MEDICARE ADVANTAGE [facility](W NR) * Aug 23, 2023 [id number] ANNALISA LOYD ITE PATIENT [facility] (WNR) MEDICARE ADVANTAGE [facility] (WNR) Aug 23, 2020 [id number] [phone] ANNALISA LOYD ITE PATIENT [facility] (WNR) MEDICARE ADVANTAGE [facility](W NR) Aug 23, 2012 [id number] [phone] ANNALISA LOYD ITE PATIENT Selected Encounter This section includes the information on record at [place] for the Encounter. Date/Time Encounter Type Encounter Description Reason Pro vider Source January 18, 2024 12:00 PM Outpatient Encounter TELEPHONE TRIAGE IHE Encounter Template Text not used by [place] Plan of Treatment: Future Appointments (+ 6 months) and Future Tests (+/- 45 days) The Plan of Treatment section includes future care activities for the patient from all [place] treatmentfacilities. This section includes future appointments and future orders which are active, pending or scheduled. Future Appointments This section includes appointments that were scheduled to occur 6 months from the date of the Encounter, up to a maximum of 20 appointments. The data comes from all [place] treatment facilities. Appointment Date/Time Appointment Type Appointme nt Facility Name Feb 21, 2024 10:15 AM AMBULATORY - NONE [place] [facility] Feb 21, 2024 11:00 AM AMBULATORY - NONE [place] [facility] Mar 18, 2024 12:01 AM AMBULATORY - NONE [place] [facility] Apr 06, 2024 01:00 PM AMBULATORY - NONE [place] [facility] Apr 06, 2024 01:00 PM AMBULATORY - MEDICINE [facility] Apr 10, 2024 01:30 PM AMBULATORY - MEDICINE [facility] Apr 10, 2024 01:31 PM AMBULATORY - NONE [place] [facility] Apr 11, 2024 10:00 AM AMBULATORY - SURGERY [facility] Apr 11, 2024 10:01 AM AMBUL[place]ORY [place] [facility] Apr 21, 2024 10:30 AM AMBULATORY - NONE [place] [facility] May 03, 2024 02:30 PM AMBULATORY [place] [facility] May 04, 2024 10:30 AM [place]UL[place]ORY [place] [facility] May 04, 2024 11:00 AM AMBULATORY [place]GERY [place] [facility] May 04, 2024 12:30 PM AMBULATORY - NONE [place] [facility] May 04, 2024 01:00 PM AMBULATORY - [place]GERY [place] [facility] May 08, 2024 02:30 PM AMBULATORY - MEDICINE [facility] May 08, 2024 02:31 PM AMBULATORY - NONE [place] [facility] May 16, 2024 10:00 AM AMBULATORY - SURGERY [facility] May 16, 2024 10:01 AM AMBULATORY - [place]GERY [place] [facility] May 19, 2024 08:00 AM AMBULATORY - NONE [place] [facility] Active, Pending, and Scheduled Orders This section includes a listing of several types of active, pending, and scheduled orders, including clinic medications orders, diagnostic test orders, procedure orders and consult orders; where the start date of the order is 45 days before the date of the Encounter or 45 days after the date of theEncounter. The data comes from all [place] treatment facilities. 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 Current Smoking Status This section includes the most current smoking, or tobacco-related health factor, from the [place] facility where the Encounter took place. Date/Time Current Smoking Status Comment Facil ity Jul 17, 2021 02:27 PM CURRENT SMOKER REINIER Bhatia [facility] Tobacco Use History This section includes a history of the smoking, or tobacco-related health factors, that were collected on or before the date of the Encounter. The data comes from the [place] facility where the Encounter took place. Date/Time [...] ALL of a patient's completed or amended [place] Advance and Rescinded Directives. The entries below indicate that a directive exists for the patient, but an actual copy is not included with this document. The data comes from all [place] facilities. Date Advance Directives Provider Source Nov 18, 2017 ADVANCE DIRECTIVE REBECCARADHA SONYA GAYLE [facility] Jul 08, 2017 ADVANCE DIRECTIVE DISCUSSION PURNIMA ROJAS SONYA NALINI [facility] Encounter Notes: All associated encounter notes This section contains the clinical notes associated to the Encounter. Date/Time Encounter Note(s) Provider Source January 18, 2024 12:13 PM ADDENDUM: LOCAL TITLE: Addendum STANDARD TITLE: ADDENDUM DATE OF NOTE: JANUARY 18, 2024@12:13:18 ENTRY DATE: JANUARY 18, 2024@12:13:18 AUTHOR: KYRA VELASQUEZ COSIGNER: URGENCY: STATUS: COMPLETED pt followed by [facility] for seizure d/o -this medication should come from [facility]. new consult entered. please convey to office /es/ KYRA VELASQUEZ M.D INTERNAL MEDICINE, [facility] Signed: 01/18/2024 12:13 Receipt Acknowledged By: 01/20/2024 11:12 /es/ OJ GIL RN --- Original Document --- 01/18/24 Medication Note: Patient is calling for medication refill or renewal: Medication name: Med /Med Refill LACOSAMIDE 50MG TAB TAKE FOUR TABLETS BY MOUTH TWICE A DAY MAY TAKE AN EXTRA TWO TABLETS IF ANY UTI,FEVER, OR ANY SURGICAL PROCEDURE How many days left? 12 [ X ] [place] Pharmacy FUTURE APPOINTMENTS Future Appointments - Feb@10:15 JACY POND MD 2 M2RE Feb@11:00 [facility] RAD ULTRASOUND 15 B1RC Feb@13:00 LIT PA Feb@14:00 LIT-V01 [facility] DAHIANA GARRIDO 08 PT Feb@14:00 LIT NUTRITION PAT Feb@14:01 [facility] [address] NUTRITION E RD Apr@10:30 [facility] RAD LYNN PREP B1RC Apr@11:00 [facility] VASCULAR LAB M3RH Apr@12:30 [facility] RAD CT SCAN 15 RC Apr@13:00 WR VASCULAR 15 M3 /es/ DWIGHT GALE AMSA Signed: 01/18/2024 12:02 Receipt Acknowledged By: 01/19/2024 10:50 /es/ JENIFER SHANE LPN 01/18/2024 12:13 /es/ KYRA VELASQUEZ M.D INTERNAL MEDICINE, [facility] * AWAITING SIGNATURE * OJ GIL 01/19/2024 ADDENDUM STATUS: COMPLETED Request os faxed to neurologist in [facility] /vivian/ JENIFER SHANE NETWORKING TECHNICIAN Signed: 01/19/2024 10:49 KYRA VELASQUEZ [facility] January 18, 2024 12:00 PM PRIMARY CARE MEDIC ATION MGT NOTE: LOCAL TITLE: Medication Note STANDARD TITLE: PRIMARY CARE MEDICATION MGT NOTE DATE OF NOTE: JANUARY 18, 2024@12:00 ENTRY DATE: JANUARY 18, 2024@12:00:40 AUTHOR: DWIGHT GALE EXP COSIGNER: URGENCY: STATUS: COMPLETED Medication Note Has ADDENDA Patient is calling for medication refill or renewal: Medication name: Med /Med Refill LACOSAMIDE 50MG TAB TAKE FOUR TABLETS BY MOUTH TWICE A DAY MAY TAKE AN EXTRA TWO TABLETS IF ANY UTI,FEVER, OR ANY SURGICAL PROCEDURE How many days left? 12 [ X ] [place] [facility] FUTURE APPOINTMENTS Future Appointments - Feb@10:15 Jeimy POND MD 2 M2RE Feb@11:00 [facility] RAD ULTRASOUND 15 Feb@13:00 LIT PA Feb@14:00 LIT-V01 SANJUANA TALBOT MD 08 PT Feb@14:00 LIT TH NUTRITION PAT Feb@14:01 [facility] TH NUTRITION E RD Apr@10:30 [facility] RAD LYNN PREP B1RC Apr@11:00 [facility] VASCULAR LAB M3RH Apr@12:30 [facility] RAD CT SCAN 15 B1RC SEP @13:00 [facility] VASCULAR 15 M3RH /es/ DWIGHT BECKWITH Signed: 01/18/2024 12:02 Receipt Acknowledged By: 01/19/2024 10:50 /vivian/ JENIFER SHANE LPN 01/18/2024 12:13 /vivian/ KYRA VELASQUEZ M.D INTERNAL MEDICINE, [facility] 01/20/2024 11:13 /vivian/ OJ GIL RN 01/18/2024 ADDENDUM STATUS: COMPLETED pt followed by [facility] for seizure d/o -this medication should come from [facility]. new consult entered. please convey to office /vivian/ KYRA VELASQUEZ M.D INTERNAL MEDICINE, [facility] Signed: 01/18/2024 12:13 Receipt Acknowledged By: 01/20/2024 11:12 /vivian/ OJ GIL RN 01/19/2024 ADDENDUM STATUS: COMPLETED Request os faxed to neurologist in [facility] /vivian/ JENIFER SHANE LPN Signed: 01/19/2024 10:49 01/20/2024 ADDENDUM STATUS: COMPLETED contacted of nidia- she is aware that neuro consult has been renewed, request for LUCOSEMIDE renewal has been sent to neuro. She will contact clinic to ensure that medication is being renewed. No further issues at this time. /vivian/ OJ GIL RN Signed: 01/20/2024 11:20 01/24/2024 ADDENDUM STATUS: COMPLETED Patient's spouse called about patient's meducation renewal. Call was forwarded to Nurse Triage as instruction around renewal is unclear to this blog writer. /es/ GIOVANNI beckwith Signed: 01/24/2024 12:02 DWIGHT GALE [facility]
--- OUTSIDE RECORDS SUMMARY | 2024-05-24 19:21 | XMS_ITS | Encounter Summary ---
Author Name [facility] [place] Organization [place] Address [address] [place] [address] Care Team Providers Care Broadcast Correspondent Name Role Phone RON KYRA Primary Care [...] Ervin's Name Patient's Relationship to Policy Ervin [facility] (WNR) MEDICARE ADVANTAGE [facility](W NR) * Aug 23, 2023 [id number] [phone] ANNALISA LOYD ITE PATIENT [facility] MCR (WNR) MEDICARE ADVANTAGE [facility]CR (WNR) Aug 23, 2020 [id number] [phone] ANNALISA LOYD ITE PATIENT [facility] MCR (WNR) MEDICARE ADVANTAGE [facility](W NR) Aug 23, 2012 [id number] ANNALISA LOYD ITE PATIENT Selected Encounter This section includes the information on record at [place] for the Encounter. Date/Time Encounter Type Encounter Description Reason Pro vider Source Feb 25, 2024 12:29 PM Outpatient Encounter COMMUNITY CARE CONSULT IHE [...] Date/Time Appointment Type Appointme nt Facility Name Mar 18, 2024 12:01 AM AM[place]ATORY [place] [facility] Apr 06, 2024 01:00 PM AMBULATORY - NONE [place] [facility] Apr 06, 2024 01:00 PM AMBULATORY - MEDICINE [facility] Apr 10, 2024 01:30 PM AMBULATORY - MEDICINE [facility] Apr 10, 2024 01:31 PM AMBULATORY - NONE [place] [facility] Apr 11, 2024 10:00 AM AMBULATORY - SURGERY [facility] Apr 11, 2024 10:01 AM [place] [facility] Apr 21, 2024 10:30 AM AMBULATORY - NONE [place] [facility] May 03, 2024 02:30 PM AMBUL[place] [facility] May 04, 2024 10:30 AM [place] [facility] May 04, 2024 11:00 AM AMBUL[place]ORY [place] [facility] May 04, 2024 12:30 PM AMBULATORY - NONE [place] [facility] May 04, 2024 01:00 PM AMBUL[place]ORY [place] [facility] May 08, 2024 02:30 PM AMBULATORY - MEDICINE [facility] May 08, 2024 02:31 PM AMBULATORY - [place]ONE [place] [facility] May 16, 2024 10:00 AM AMBULATORY - SURGERY [facility] May 16, 2024 10:01 AM [place] [facility] May 19, 2024 08:00 AM AMBULATORY - NONE [place] [facility] May 26, 2024 10:00 AM AMBULATORY - [place]ONE [place] [facility] Jun 15, 2024 09:00 AM AMBULATORY - NONE [place] [...] 12:13 PM Consult Order COMMUNITY CARE-NEUROLOGY Cons Formula Mixer's [facility] Mar 17, 2024 11:23 AM Consult Order [facility] Apr 06, 2024 04:04 PM Consult Order [facility] Social History: Smoking Status (Most [...] Date/Time Current Smoking Status Comment Facil ity Feb 21, 2024 10:15 AM VA-TOBACCO USER EVERY DAY [facility] Tobacco Use History This section includes a history of the smoking, or tobacco-related health factors, that were collected on or before the date of the Encounter. The data comes from the [place] facility where the Encounter took place. 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 [facility] Feb 21, 2024 10:15 AM VA-TOBACCO USE MED NO [facility] Feb 21, 2024 10:15 AM VA-TOBACCO USE WI 30 MIN OF WAKEUP [facility] Feb 21, 2024 10:15 AM VA-TOBACCO USER EVERY DAY [facility] Jul 17, 2021 02:27 PM CURRENT SMOKER WHIT [facility] Jul 01, 2021 08:55 PM VA-VAAES TOBACCO U SE CURRENT NRT DECLINE [facility] Jul 01, 2021 02:41 PM CURRENT SMOKER REINIER GAYLE [facility] Dec 08, 2020 08:45 PM VA-TOBACCO USER [...] AM RENAL AND BLADDER ULTRASOUND: GALINA LOYD [id number] -1945 M Ex Date: FEB 21, 2024@11:00 Req Phys: BRITTNEY SOTO Loc: [facility] [place] G2RD (Req'g L Img Loc: ULTRASOUND (OOS) Service: Unknown [facility] [place] [address] (Case [id number] COMPLETE) ULTRASOUND RENAL (US Detailed) CPT:44848 Reason for Study: US following ureteral stent removal, eval hydro/stones (Case [id number] COMPLETE) ULTRASOUND PELVIS (US Detailed) CPT:47632 Clinical History: Please coordinate with Urology follow up in 3 months Report Status: Verified Date Reported: FEB 21, 2024 Date Verified: FEB 21, 2024 Miah E-Sig:/ES/BRITTNEY PEDERSEN Report: Ultrasound -- renal/bladder: COMPARISON: Ultrasound [...] Primary Interpreting Staff: BRITTNEY PEDERSEN, RADIOLOGY ATTENDING (Miah) /BRITTNEY FREIRE [facility] Encounter Notes: All associated encounter notes This section contains the clinical notes associated to the Encounter. Date/Time Encounter Note(s) Provider Source Feb 25, 2024 12:29 PM NONVA NOTE: LOCAL TITLE: COMMUNITY CARE-RAFAEL SELF PRESENTING CARE COORD PLAN STANDARD TITLE: NONVA NOTE DATE OF NOTE: FEB 25, 2024@12:29 ENTRY DATE: FEB 28, 2024@12:29:52 AUTHOR: PILAR LOCKHART COSIGNER: URGENCY: STATUS: COMPLETED COMMUNITY CARE-RAFAEL SELF PRESENTING CARE COORD PLAN NOTE Has ADDENDA Emergency Notification Intake Date Presenting to the Facility: Feb Method of Contact: Notified from ECR worklist Notification ID: [id number] [facility] Referral #: [facility] [place]: Hospital: [facility] Address: City: [facility] State: [place] Zip Code: [address] Phone : [facility] Facility Point of Contact: Name: Phone: Chief complaint: fell, fx hip Primary Diagnosis: Disposition Unknown at time of intake note entry Alerting PACT that [place] has been admitted with a fractured hip. /vivian/ PILAR SOMERSN, RN EMERGENCY PSYCH RN Signed: 02/28/2024 12:31 Receipt Acknowledged By: 02/28/2024 13:36 /vivian/ JENIFER SHANE LPN 03/07/2024 11:14 /vivian/ OJ GIL RN 02/28/2024 ADDENDUM STATUS: COMPLETED REcord of visit requested. /vivian/ OJ GIL RN Signed: 02/28/2024 12:49 03/07/2024 ADDENDUM STATUS: COMPLETED Notification ID # [id number] EOC approved under 1703 by the National ER Notification Team [employer] Referral # [id number] /vivian/ ADITI SANCHEZ Signed: 03/07/2024 09:52 03/07/2024 ADDENDUM STATUS: COMPLETED contact with of vet-vet sustained hip fx surgery aborted on 02/25 d/t profound hypotension- transferred to ICU. Did have surgery on 02/27 Vet is currently in rehab in [place]. /vivian/ OJ GIL RN Signed: 03/07/2024 11:41 PILAR LOCKHART [facility]
--- OUTSIDE RECORDS SUMMARY | 2024-05-24 19:21 | XMS_ITS | Encounter Summary ---
Author Name [facility] [place] Organization [place] Address [address] [place] [address] Care Team Providers Care Java Analyst Name Role Phone RON KYRA Primary [...] Ervin's Name Patient's Relationship to Policy Ervin [facility] (WNR) MEDICARE ADVANTAGE [facility](W NR) * Aug 23, 2023 [id number] ANNALISA LOYD ITE PATIENT [facility] MCR (WNR) MEDICARE ADVANTAGE [facility] (WNR) Aug 23, 2020 [id number] [phone] ANNALISA LOYD ITE PATIENT [facility] M[facility] (WNR) MEDICARE ADVANTAGE [facility](W NR) Aug 23, 2012 [id number] ANNALISA LOYD ITE PATIENT Selected Encounter This section includes the information on record at [place] for the Encounter. Date/Time Encounter Type Encounter Description Reason Pro vider Source December 26, 2023 12:00 PM Outpatient Encounter COMMUNITY CARE CONSULT IHE Encounter Template Text not used by VA Plan of Treatment: Future Appointments (+ 6 months) and Future Tests (+/- 45 days) The Plan of Treatment section includes future care activities for the patient from all [facility] This section includes future appointments and [...] AMBULATORY - [place]ONE [place] [facility] Feb 21, 2024 11:00 AM AMBULATORY - NONE [place] [facility] Mar 18, 2024 12:01 AM AMBULATORY - NONE [place] [facility] Apr 06, 2024 01:00 PM AMBULATORY - NONE [place] [facility] Apr 06, 2024 01:00 PM AMBULATORY - MEDICINE [facility] Apr 10, 2024 01:30 PM AMBULATORY - MEDICINE [facility] Apr 10, 2024 01:31 PM AMBULATORY - [place]ONE [place] [facility] Apr 11, 2024 10:00 AM AMBULATORY - SURGERY [facility] Apr 11, 2024 10:01 AM [place]BUL[place] [facility] Apr 21, 2024 10:30 AM AMBULATORY - NONE [place] [facility] May 03, 2024 02:30 PM AMBUL[place]ORY [place] [facility] May 04, 2024 10:30 AM AM[place]UL[place]ORY [place] [facility] May 04, 2024 11:00 AM AMBULATORY [place] [facility] May 04, 2024 12:30 PM AMBULATORY - NONE [place] [facility] May 04, 2024 01:00 PM AMBULATORY [place] [facility] May 08, 2024 02:30 PM AMBULATORY - MEDICINE [facility] May 08, 2024 02:31 PM AMBULATORY - NONE [place] [facility] May 16, 2024 10:00 AM AMBULATORY - SURGERY [facility] May 16, 2024 10:01 AM AMBUL[place]ORY [place] [facility] May 19, 2024 08:00 AM AMBULATORY - NONE [place] [facility] Active, Pending, and Scheduled Orders This [...] 12:13 PM Consult Order COMMUNITY CARE-NEUROLOGY Cons Client Support Professional's Choice SONYA GAYLE [facility] Lab Results: +/- 30 days of the encounter This section includes the Chemistry and Hematology Lab Results on record with [place] for the patient. Radiology Reports and Pathology Reports are provided separately, in subsequent sections. Lab Results This section contains the Chemistry/Hematology Results that were resulted 30 days before or 30 daysafter the date of the Encounter. Date/Time Source Result Type Result - Unit Interpretation Reference Range Comment Nov 29, 2023 11:27 AM [facility] URINALYSIS W/REFLEX TO CULTURE Specimen Type: URINE No comment entered. Ordering Provider: MIRIAN OSORIO CH Report Released Date/Time: Nov 24, 2023 05:48 PM Reporting Lab: [facility] [address] [address] Performing Lab: [facility] [address] [address] URINE COLOR Light-Pine NOT DEFINED SPECIFIC GRAVITY 1.013 1.003-1.030 UROBILINOGEN [...] 2021 02:27 PM CURRENT SMOKER REINIER GAYLE [facility] Tobacco Use History This section includes [...] 11:15 AM UROGRAM RETROGRADE : GALINA LOYD [id number] -1945 M Exm Date: DEC 16, 2023@11:15 Req Phys: CORBY OSORIO Pat Loc: [facility] GENERAL G2RD (Req'g Img Loc: XRAY (OOS) Service: [place] [address] (Case [id number] COMPLETE) UROGRAM RETROGRADE (RAD Detailed) CPT:16241 Contrast Media : Non-ionic Iodinated Proc Modifiers : OPERATING ROOM EXAM Reason for Study: bilat ureteroscopy laser litho, stent placement Clinical History: calculus of kidney Report Status: Verified Date Reported: DEC 16, 2023 Date Verified: DEC 16, 2023 Recoater E-Sig:/ES/BENJAMÍN PIMENTEL Report: UROGRAM RETROGRADE 12/16/2023 11:15 AM Impression: Fluoroscopy performed during urology service procedure. FINDINGS: Procedure performed with the C-arm fluoroscopy . Fluoroscopy time 55 seconds, dose 9 mGy Fluoroscopic images consistent with history of bilateral ureteroscopy and stent placement. Labels from bilateral [employer] Contour double-J ureteral stents placed on the scanned worksheet Please see procedure note for further details. HISTORY: bilat ureteroscopy laser litho, stent placement, Primary Diagnostic Code: NO IMMEDIATE ATTENTION REQUIRED Primary Interpreting Staff: BENJAMÍN PIMENTEL, Staff Physician (Recoater) /BENJAMÍN [facility] Pathology Reports: +/- 30 days of [...] PORT: Reporting Lab: [facility] [CLIA# [id number]] [address] [facility] [place] [address] Accession [UID]: [id number] [[id number]] Received: Nov 30, 2023@19:53 Collection sample: URINE CLEAN CATCH Collection date: Nov 29, 2023 11:27 Site/Specimen: URINE Provider: CORBY OSORIO Test(s) ordered: CULTURE,URINE CLEAN CATCH..... completed: Dec 02, 2023 13:00 * BACTERIOLOGY FINAL REPORT => Dec 02, 2023 13:01 TECH CODE: [id number] Bacteriology Remark(s): 12/02/23 50,000-99,000 CFU/mL AT LEAST THREE BACTERIAL TYPES PRESENT INDICATING POSSIBLE CONTAMINATION, PLEASE REPEAT COLLECTION. =--=--=--=--=--=--=--=--=--=--= --=--=--=--=--=--=--=--=--=--=- -=--=--=--=--=-- Performing Laboratory: Bacteriology Report Performed By: SONYA GAYLE [facility] [CLIA# [id number]] [address] [place] [address] [facility] Encounter Notes: All associated encounter notes This section contains the clinical notes associated to the Encounter. Date/Time Encounter Note(s) Provider Source December 27, 2023 10:59 PM ADDENDUM: LOCAL TITLE: Addendum STANDARD TITLE: ADDENDUM DATE OF NOTE: DECEMBER 27, 2023@22:59:50 ENTRY DATE: DECEMBER 27, 2023@22:59:51 AUTHOR: KYRA VELASQUEZ EXP COSIGNER: URGENCY: STATUS: COMPLETED please scan to chart /vivian/ KYRA VELASQUEZ M.D INTERNAL MEDICINE, [facility] Signed: 12/27/2023 23:00 Receipt Acknowledged By: 12/28/2023 08:51 /vivian/ JENIFER SHANE LPN --- Original Document --- 12/26/23 NonVA Medical Records: [facility] - Scanned Document Date of Service (Procedure/Event): 12/26/2023 Note Title: NonVA Medical Records Origin: NON-VA Type: PROGRESS NOTE Specialty: EMERGENCY MEDICINE Procedure: DISCHARGE SUMMARY-[facility] SCANNED DOCUMENT SIGNATURE NOT REQUIRED Electronically Filed: 12/27/2023 by: NICOLE CASTELLON SENIOR FRONT END ENGINEER Receipt Acknowledged By: 12/27/2023 22:54 /vivian/ KYRA VELASQUEZ M.D INTERNAL MEDICINE, [facility] CLINICAL RESOURCE [facility] KYRA VELASQUEZ [facility] December 26, 2023 12:00 PM NONVA NOTE: LOCAL TITLE: NonVA Medical Records STANDARD TITLE: NONVA NOTE DATE OF NOTE: DECEMBER 26, 2023@12:00 ENTRY DATE: DECEMBER 27, 2023@17:00:27 AUTHOR: NICOLE CASTELLON COSIGNER: URGENCY: STATUS: COMPLETED NonVA Medical Records Has ADDENDA [facility] - Scanned Document Date of Service (Procedure/Event): 12/26/2023 Note Title: NonVA Medical Records Origin: NON-VA Type: PROGRESS NOTE Specialty: EMERGENCY MEDICINE Procedure: DISCHARGE SUMMARY-[facility] SCANNED DOCUMENT SIGNATURE NOT REQUIRED Electronically Filed: 12/27/2023 by: NICOLE CASTELLON SENIOR FRONT END ENGINEER Receipt Acknowledged By: 12/27/2023 22:54 /vivian/ KYRA VELASQUEZ M.D INTERNAL MEDICINE, [facility] CLINICAL RESOURCE [facility] 12/27/2023 ADDENDUM STATUS: COMPLETED please scan to chart /vivian/ KYRA VELASQUEZ M.D INTERNAL MEDICINE, [facility] CLINICAL RESOURCE [facility] Signed: 12/27/2023 23:00 Receipt Acknowledged By: * AWAITING SIGNATURE * JENIFER SHANE VIVIAN E [place] [facility]
--- OUTSIDE RECORDS SUMMARY | 2024-05-24 19:21 | XMS_ITS | Encounter Summary ---
Author Name [facility] Organization [facility] Address [address] [place] [address] Care Team Providers Care Senior Qa Tester Name Role Phone KYRA VELASQUEZ Primary Care [...] Name Patient's Relationship to Policy Ervin [facility] (WNR) MEDICARE [facility](W NR) * Aug 23, 2023 [id number] ANNALISA LOYD ITE PATIENT [facility] M[facility] (WNR) MEDICARE ADVANTAGE [facility] (WNR) Aug 23, 2020 [id number] [phone] ANNALISA LOYD ITE PATIENT [facility] (WNR) MEDICARE [facility](W NR) Aug 23, 2012 [id number] ANNALISA LOYD ITE PATIENT Selected Encounter This section includes the information on record at [place] for the Encounter. Date/Time Encounter Type Encounter Description Reason Provider Source Feb 21, 2024 10:15 AM OFFICE O/P EST HI 40 MIN GERIPACT ICD-10-CM F01.A3 Vascular dementia, mild, with mood disturbance ADAMCRESENCIO Husam Jannette Encounter Template Text not used by [place] Assessments - Encounter Diagnoses This section includes the primary and secondary diagnoses documented for the Encounter. Date/Time Primary/Secondary Diagnosis Diagnosis Name Provider Source Feb 21, 2024 01:51 PM PRIMARY Vascular dementia, mild, with mood disturbance CRESENCIO MEDINA [facility] Feb 21, 2024 01:51 PM SECONDARY Essential (primary) hypertension CRESENCIO MEDINA [facility] Plan of Treatment: Future Appointments (+ 6 months) and Future Tests (+/- 45 days) The Plan of Treatment section includes future care activities for the patient from all [facility]. This section includes future appointments [...] JCT [facility] Apr 06, 2024 01:00 PM AMBULATORY - NONE [place] T [facility] Apr 06, 2024 01:00 PM AMBULATORY - MEDICINE [facility] Apr 10, 2024 01:30 PM AMBULATORY - MEDICINE [facility] Apr 10, 2024 01:31 PM AMBULATORY - NONE [place] [facility] Apr 11, 2024 10:00 AM AMBULATORY - SURGERY [facility] Apr 11, 2024 10:01 AM AMBULATORY - [place] [facility] Apr 21, 2024 10:30 AM AMBULATORY - NONE [place] [facility] May 03, 2024 02:30 PM AMBULATORY - [place] [facility] May 04, 2024 10:30 AM AMBULATORY - MEDICINE [place] [facility] May 04, 2024 11:00 AM AMBULATORY - [place] [facility] May 04, 2024 12:30 PM AMBULATORY - NONE [place] [facility] May 04, 2024 01:00 PM AMBULATORY - SURGERY [place] [facility] May 08, 2024 02:30 PM [facility] May 08, 2024 02:31 PM AMBULATORY - NONE [place]ONYA LAI [facility] May 16, 2024 10:00 AM [facility]UL[facility] May 16, 2024 10:01 AM AMBULATORY - SURGERY SONYA GAYLE [facility] May 19, 2024 08:00 AM AMBULATORY - NONE [place] JOEL[place] [facility] May 26, 2024 10:00 AM AMBULATORY - NONE [facility] JOELLE [facility] Jun 15, 2024 09:00 AM AMBULATORY - NONE [facility] Active, Pending, and Scheduled Orders This [...] 12:13 PM Consult Order COMMUNITY CARE-NEUROLOGY Cons Superintendent [employer] Choice [facility] Mar 17, 2024 11:23 AM Consult Order COMMUNITY CARE-ACUTE REHAB Cons Superintendent Police's [facility] Apr 06, 2024 04:04 PM Consult Order COMMUNITY CARE-ALLERGY [facility] Superintendent Polices [facility] Vital Signs: All taken on the encounter date This section contains inpatient and outpatient Vital Signs collected on the date of the Encounter. Date/Time Temperature Pulse Blood Pressure Respiratory Rate SP02 Pain Height Weight Body Mass Index Source Feb 21, 2024 10:09 AM 97.9 71 117/72 96 0 124.9 18 [facility] Social History: Smoking Status (Most current) [...] place. Date/Time Current Smoking Status Melissa schaeffer Feb 21, 2024 10:15 AM VA-TOBACCO USER EVERY DAY [facility] Tobacco Use History This section includes a history of the smoking, or tobacco-related health factors, that were collected on or before the date of the Encounter. The data comes from the [place] facility where the Encounter took place. Date/Time Smoking Status/Tobacco Use Comment F acility Feb 21, 2024 10:15 AM VA-TOBACCO USE ADVICE [facility] Feb 21, 2024 10:15 AM VA-TOBACCO USE KITCHEN CLEANER NO [facility] Feb 21, 2024 10:15 AM VA-TOBACCO USE MED NO [facility] Feb 21, 2024 10:15 AM VA-TOBACCO USE WI 30 MIN OF WAKEUP [facility] Feb 21, 2024 10:15 AM VA-TOBACCO USER EVERY DAY [facility] Jul 17, 2021 02:27 PM CURRENT SMOKER [facility] Jul 01, 2021 08:55 PM VA-VAAES TOBACCO U SE CURRENT NRT DECLINE [facility] Jul 01, 2021 02:41 PM CURRENT SMOKER [facility] Dec 08, 2020 08:45 PM VA-TOBACCO USER EVERY DAY [facility] Dec 08, 2020 08:45 PM VA-VAAES TOBACCO U SE CURRENT NRT DECLINE [facility] Dec 08, 2020 06:58 PM VA-TOBACCO FORMER USER [facility] Apr 04, 2015 03:47 PM CURRENT SMOKER Less than a pack a day [facility] Apr 04, 2015 03:47 PM V1-PT [...] 18, 2017 ADVANCE DIRECTIVE RADHA FERNANDEZ [facility] Jul 08, 2017 ADVANCE DIRECTIVE DISCUSSION PURNIMA ROJAS [facility] Radiology Reports: +/- 30 days of [...] AM RENAL AND BLADDER ULTRASOUND: GALINA LOYD [id number] M Exm Date: FEB 21, 2024@11:00 Req Phys: BRITTNEY SOTO Loc: [facility] [place] G2RD (Req'g L Img Loc: ULTRASOUND (OOS) Service: Unknown [facility] [address] [place] [address] (Case 55 COMPLETE) ULTRASOUND RENAL (US Detailed) CPT:75959 Reason for Study: US following ureteral stent removal, eval hydro/stones (Case 56 COMPLETE) ULTRASOUND PELVIS (US Detailed) CPT:62138 Clinical History: Please coordinate with Urology follow up in 3 months Report Status: Verified Date Reported: FEB 21, 2024 Date Verified: FEB 21, 2024 Greenskeeper Laborer E-Sig:/ES/BRITTNEY PEDERSEN Report: Ultrasound -- renal/bladder: COMPARISON: [...] Primary Interpreting Staff: BRITTNEY PEDERSEN, RADIOLOGY ATTENDING (Greenskeeper Laborer) /BRITTNEY FREIRE T [facility] Encounter Notes: All associated encounter notes This section contains the clinical notes associated to the Encounter. Date/Time Encounter Note(s) Provider Source Feb 21, 2024 01:51 PM ADDENDUM: LOCAL TITLE: Addendum STANDARD TITLE: ADDENDUM DATE OF NOTE: FEB 21, 2024@13:51:24 ENTRY DATE: FEB 21, 2024@13:51:26 AUTHOR: CRESENCIO MEDINA EXP COSIGNER: URGENCY: STATUS: COMPLETED we had discussed MRI brain in the past and they deferred to after PCP discussion. I do wonder if his outside neurologist has done this in the past. I do suspect it would be worth completing to define deficits and abnormality seen on CT. I do not hear any recent acute changes. A lot of argument/discussion with Johnston and his today during visit about his ability to have an MRI versus a CT and the prep required. He has follow-up with his PCP in a week we will add her to see if MRI brain could be discussed at their visit proceed if willing at that time /vivian/ CRESENCIO MEDINA DO DO Signed: 02/21/2024 13:51 Receipt Acknowledged By: 02/21/2024 14:44 /es/ KYRA VELASQUEZ M.D INTERNAL MEDICINE, [facility] --- Original Document --- 02/21/24 GERIATRIC EVALUATION NOTE: Type of Evaluation: Geriatric Follow-up GERIATRIC CONSULT ASSESSMENT LAST SAW ONE YEAR AGO 01/2023 Mr. Galina Loyd is a 77 yo who is here for 1 year follow-up followup Geriatric Evaluation. saw him inpatient 06/2021 here for follow up on hallucinations, memory deficits in setting of subdural, history of seizures and R MCA stroke; increasing fragility over the course of 2 years with history of Dementia BRIEF HISTORY: 75 year old MALE with PMH of follicular lymphoma, ischemic stroke 09/2019, left subdural hygroma, parafalcine SDH, SAH, post stroke epilepsy, alcohol use history not in the last 2-3 years. prostate cancer s/p RT (ended in 04/2020), chronic indwelling urinary catheter complicated with multiple recent exchanges and multiple UTIs in the past year with recent giraldo removal 09/2021 thinks things overall okay wish they were going better. reports that finally his urine is normal no blood in the urine. no pain no falls using the cane only. alot of sitting during the day. never walks for exercise. has seizure last wednesday. said she knew it was coming because they never drinks fluids as recommended. 4 days before was not drinking fluids. he was very focused and not drinking fluids. cant do two things at once. feels like dehydrated may have led to the seizure. has an appointment march 23 with neurologist. he thinks memory is not as good as it used to be. he feels memory is not as good so worse. appetite is down. up 4 lbs from last visit. sleeping well at night. He denies hallucinations notes that the other day he noted he had caught a rabbit but he relates this was more so related to dream which he does not feel he is having these hallucinations related to dreams any longer. Is hard to decipher the history of these hallucinations considering the dynamic between and his he is off remeron, led to weird dreams. does not think he has CT 04/2024 doesnt have contrast allergy. he feels he does. was sent the medications for CT allergy but does not think he needs it. Urology procedures for bilateral renal stones occurred in the interim [facility] neurology consult for seizure disorder Note reviewed from 10/18/2023 follow-up focal epilepsy diagnosis is partial symptomatic epilepsy with complex partial seizures On Lacosamide Follow-up on his follicular lymphoma no evidence of recurrence He follows with at [facility] for cont neuro f/u for subdural and seizure disorder. notes he has seizures only when he is ill sick with a UTI. walking with cane now.does not use walker per history as follows: 09/2019 Ischemic CVA with distal MCA occlusion/right frontal infarct. stopped drinking alcohol. post stroke seizure disorder 11/2019 diagnosed with prostate cancer 01/2021 through 04/2021 prostate cancer treatment with RT started having seizures 08/2020 Non-traumatic L SDH s/p L MMA embolization resulting left subdural hygroma 12/2020 had another seizure at increased his seizure medication during admission to [facility]. 01/2021 Traumatic(after fall) parafalcine SDH and SAH with seizure. Has baseline was LUTS with nocturia x 3-4 and history of intermittent issues with urination since that time *Multiple urologic procedures in the interim year secondary to nephrolithiasis ADLs and IADLs: Independent (I), Dependent (D), Needs Help (H) ADLs: Bathing: D she washes him in the shower. sometime she has a shower chair. has a good walk in shower for this. have grab bars. Has grab bars around the toilet. A lot of grab bars. Tub/shower. Shower chair. No trouble just fear of slipping. Dressing: D said he can do this now and put his clothes Toileting: I Transferring: I cane or walker in the home. never using walker now--now mainly cane Managing continence: no longer have loser stools, better diet with brand flakes. encourages fluids. depends for urine loss, changing them once to twice a day. using three depends daily. no change Eating: I IADLs: Telephone: D , he can make phone calls. makes appt and schedules. Shopping: D, does all the shopping. he does not leave the home. only doctors appt will leave the house. Housework: D does this. functionally he thinks he could do it. Laundry: D on , never tried functionally think he could do it. Preparing meals: D. does all the cooking and always has. before his injuries could make breakfast. a little while ago he forgot to shut off the gas on the stove and thought not take a chance. making all the meals Driving (accidents, tickets, near misses): D, ever since stroke no more driving drives Medications (pill box, who fills):D does his medications and this has been since 1 year, she fills them and he remembers to take them. Finances (taxes, bill pay, money management):D has been doing 45 years Problem List: Active problems - Computerized Problem List is the source for the followin. Bradycardia 2. Non-traumatic subdural hemorrhage 3. AAA - Abdominal aortic aneurysm 4. Thoracic aortic aneurysm without rupture 5. Follicular non-Hodgkin lymphoma, small cleaved cell 6. Tobacco dependence 7. Alcohol dependence 8. Hypertension 9. Family history of prostate cancer 10. Family history of malignant neoplasm of breast 11. Injury due to chemical exposure (SNOMED CT [id number]) Follicular Lymphoma per [facility] [place]- biopsy proven follicular non-Hodgkin's lymphoma on 12/09/15. Underwent six cycles of R-CVP with additional consolidation therapy now in remission. Ischemic CVA with distal MCA occlusion/right frontal infarct (09/2019) complicated by post stroke epilepsy Non-traumatic L SDH s/p L MMA embolization (08/2019)with resulting left subdural hygroma Traumatic(after fall) parafalcine SDH and SAH 01/2021. Last CT head in 03/2021 showing slightly more prominent subdural hematoma of left frontoparietal area with improvement in other areas of intercranial hemorrhage. Active and Recently Outpatient Medications (including Supplies): Active Outpatient Medications Status 1) ATORVASTATIN CALCIUM 40MG TAB TAKE TWO TABLET(S) BY ACTIVE MOUTH EVERY EVENING TO LOWER CHOLESTEROL 2) DRESS,MEPILEX BORDER FLEX 4X4IN #706990 APPLY ONE ACTIVE DRESSING TOPICALLY EVERY THIRTY-SIX HOURS APPLY DIRECTED 3) DRESSING,MEPILEX BORDR 8.7X9.8IN #254197 APPLY ONE ACTIVE DRESSING TOPICALLY DIRECTED 4) LACOSAMIDE 50MG TAB TAKE FOUR TABLETS BY MOUTH TWICE ACTIVE A DAY . MAY TAKE 2 EXTRA TABLETS (100MG) IF ANY UTI, FEVER OR ANY SURGICAL PROCEDURE. 5) MELATONIN 3MG CAP/TAB TAKE ONE CAP/TAB BY MOUTH AT ACTIVE BEDTIME NEEDED FOR SLEEP 6) POTASSIUM CHLORIDE 10MEQ SA TAB TAKE ONE TABLET BY ACTIVE MOUTH EVERY MORNING WITH BREAKFAST TO SUPPLEMENT POTASSIUM 7) TAMSULOSIN HCL 0.4MG CAP TAKE ONE CAPSULE BY MOUTH ACTIVE TWICE A DAY 30 MINUTES AFTER THE SAME MEALTIME EACH DAY FOR PROSTATE/URINARY SYMPTOMS. ALLERGIES: OMNIPAQUE 350 INJECTION SOCIAL HISTORY: SOCIAL: Galina reports that he lives with his in a home with 5 stairs to enter and 2 stories, although he plans to modify to be able to stay on the first floor, which has a bed and full bath as well as the kitchen. 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 REVIEW OF SYSTEMS: GEN: Denies excessive fatigue. Reports normal energy level. Reports normal appetite. ENDO: Denies significant weight changes HEENT: Denies ear pain, sore throat. CV: Denies chest pain, DUNNE, irregular HR, palpitations. Denies lightheadedness, dizziness upon standing. PULM: Denies SOB, difficulty breathing, cough GI: Denies n/v/d, constipation, melena or hematochezia : Denies urinary frequency, urgency, nocturia, changes in libido, difficulty/changes with erections. SA. MSK: Denies joint pain, myalgias NEURO: Denies headaches, numbness, weakness, paresthesia, change in gait/balance EXT: Denies edema, myalgia or arthralgia SKIN: Denies new lesions. Denies pressure sores. PSYCH: Feels safe at home. Denies feeling anxious, down, depressed or hopeless. Denies loss of interest or pleasure in previously enjoyable activities. PHYSICAL EXAM: Temp: 97.9 F [36.6 C] (02/21/2024 10:09) Pulse: 71 (02/21/2024 10:09) BP: 117/72 (02/21/2024 10:09) Resp: 20 (12/21/2023 14:25) 02/21/24 @ 1009 PULSE OXIMETRY: 96 HT(in): 69 in [175.3 cm] (12/16/2023 10:13) WT(lbs):124.9 lb [56.65 kg] (02/21/2024 10:09) WT(lbs):121 lb [54.88 kg] (02/25/2023 10:39) WT(lbs):153.1 lb [69.44 kg] (02/26/2022 11:32) WT: 139.7 lb. [63.5 kg] (07/01/2021 21:00) HT: 70.5 in [179.1 cm] (07/01/2021 21:00) Previous weights: GEN: Well-appearing, no apparent distress. Dress is congruent with weather. thin,frail thin, poor muscle tone ENT: hearing intact NECK: supple. Thyroid normal. CV/pulm clear to auscultation regular rate and rhythm EXT: No edema AB: NT/ND bs+ MSK: Bilat UE and LE proximal and distal strength 5/5 SKIN: pink warm dry, no rashes. No pressure wounds noted. LYMPH: no lymphadenopathy PSYCH: Appropriate affect and demeanor, normal speech pattern MOCA: 02/21/2024 VISUOSPATIAL/EXECUTIVE: Trails: 0/1 unable to decide where to start Cube: 08/23 Clock: Contour: 08/23 Numbers: Hands: 08/23 NAMIN3 ATTENTION: Backward Digits: 0/2 Tapping A: Serial 7s: 23 LANGUAGE: Repetition: 2/2 Fluency: 0 ABSTRACTION: 2/2 RECALL: 2/5 (with category clues /5, with multiple choice /5) ORIENTATION: 01/26 TOTAL: MOCA:01/2023 TOTAL: MOCA: 06/2021 TOTAL: MOCA: 02/26/22 TOTAL: IMAGIN07/03/2021 CT HEAD showing 1.1 x 0.3 cm hyperdense left frontal extra-axial low compatible with acute subdural hemorrhage. Findings compatible with subacute subdural hemorrhage superimposed on chronic subdural hygroma. 07/01/21 CT lumbar spine showing moderate superior endplate fragility fracture of T12 chronic in nature 07/01/[address] head 07/04/21 Impression: 1. Stable focus of left subdural hemorrhage -- no significant interval change as compared with the 07/03/2021 scan. 2. Slender extra-axial subdural crescentic collection overlying the left frontal/parietal convexity -- subacute on chronic subdural hematoma -- unchanged. 3. Previously noted small left frontal subdural has virtually resolved since the 12/07/2020 scan4. 4. Old area of right frontal/parietal infarction -- stable. 5. Cerebral atrophy -- unchanged. 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 Johnston is full assist with IADLs and some ADLs which is unchanged. MoCA score waxes and wanes between 22-26 on testing over the last several years consistent with a vascular process rather than a neurodegenerative process at this time his hallucinations/delusions have resolved no noted PTSD related sleep disorder, sleeping well already accepted for catastrophically impaired status we had discussed MRI brain in the past and they deferred to after PCP discussion. I do wonder if his outside neurologist has done this in the past. I do suspect it would be worth completing to define deficits and abnormality seen on CT. I do not hear any recent acute changes. A lot of argument/discussion with Johnston and his today during visit about his ability to have an MRI versus a CT and the prep required. He has follow-up with his PCP in a week we will add her to see if MRI brain could be discussed at their visit proceed if willing at that time Carination instant breakfast and milkshakes he has been doing and he has gained 5 pounds since last visit which is reassuring. But still appears quite sarcopenic. We do not have much to add or change today last visit was made if they felt helpful. Without any new changes or concerns today regarding current geriatric syndromes will make future follow-ups as needed --11/18/2017 advance directive in the chart HANNA LOYD PRIMARY NO alternative selected reviewed. would consider completing new AD as outpatient for secondary selection, daughter present as engaged with care today at visit. Thank you for this consult. We will see this again PRN I spent 45 minutes of this 51 minute face to face visit counseling patient on the above clinical concerns. /vivian/ CRESENCIO MEDINA DO DO Signed: 02/21/2024 13:51 02/21/2024 ADDENDUM STATUS: COMPLETED Pressure Ulcer Risk Screening: Is the patient bed confined, a wheel chair user, and/or does the patient require assistance to transfer? NO Does the patient have a pressure ulcer or history of pressure ulcers? NO Tobacco Use Screening: The patient uses tobacco every day. The patient uses tobacco within 30 minutes of waking up. The patient has been smoking or using tobacco for more than fifteen years and less than thirty years. Patient was advised to quit smoking and/or using tobacco. Discussion with patient included: - Quitting smoking or tobacco use is one of the most important things you can do to protect and improve your health and [place] has the resources to support you. - Set a quit date when you are ready to quit. - Get support from your family and friends. - Review any past quit attempts- What helped? What didn't? - On the day you plan to quit, get rid of all cigarettes and tobacco products from your home, car or work. - Using a combination of behavioral counseling or other support strategies and FDA-approved cessation medications is the most effective way to ensure success in quitting. Patient was offered Behavioral Counseling and other support strategies to assist with quitting. Discussion with patient included: - Behavioral counseling or other support strategies greatly increases your chances of successfully quitting smoking or tobacco use by helping you develop a quit plan and providing support and other strategies to make behavioral changes to help you quit. - [place] has a number of behavioral counseling options to help you with quitting, including: * Provide information about the facility smoking or tobacco use treatment options or clinics * [place]'s national quitline, 7-560-AVPI-VET, with counseling available Wednesday-Wednesday The patient was not interested in receiving additional information about how to use the treatment options discussed. Patient was offered FDA-approved cessation medications. Discussion with patient included: - Medications for Nicotine replacement therapy such as the patch, gum or lozenge, and other medications such as varenicline or bupropion, can play an important role in the initial weeks and months after you quit smoking or tobacco use. - Medications help with cravings and withdrawal symptoms and they greatly increase your chances of successfully quitting. The patient was not interested in a prescription for tobacco cessation medications. Falls & Incontinence Screen: Falls Screen: 4. No falls within the past year. Incontinence Screen: No incontinence. Frail/Elderly ADL & IADL Screens: ADL Screen - Maaya Index of [place] in Activities of Daily Living Record INDEX of ADL. Score = 11 1. Bathing: either sponge bath, tub bath or shower. Receives assistance in bathing more than one part of the body (or not bathed). 2. Dressing: gets clothes from closets and drawers, including under-clothes, outer garments and using fasteners (including braces if worn). Receives assistance in getting clothes, or dressing, or stays partly or completely undressed. 3. Toileting: going to the toilet room for bowel and urine elimination; cleaning self after elimination and arranging clothes. (May use cane, walker, or wheelchair, and manage bedpan or commode, emptying same next morning). Receives assistance with at least one procedure above. 4. Transfer: Moves in and out of bed with assistance. 5. Continence: Has occasional accidents of urination or bowels. 6. Feeding: Feeds self without assistance. IADL Screen - Yohannes Instrumental Activities of Daily Living Scale Ability to use telephone: (1 point) Operates Telephone on own initiative; looks up and dials numbers. Shopping: (0 points) Shops independently for small purchases. Food preparation: (0 points) Needs to have meals prepared and served. Housekeeping: (0 points) Does not participate in any housekeeping tasks. Laundry: (0 points) All laundry must be done by others. Mode of transportation: (0 points) Does not travel at all. Responsibility for own medications: (0 points) Takes responsibility if medication is prepared in advance in separate dosages. Ability to handle finances: (0 points) Incapable of handling money. Total score: 3 points 8 = High function, independent 0 = Low function, dependent Homelessness/Food Insecurity Screen: In the past 2 months, have you been living in stable housing that you own, rent, or stay in as part of a household? Yes - Living in stable housing. Are you worried or concerned that in the next 2 months you may NOT have stable housing that you own, rent, or stay in as part of a household? No - Not worried about housing near future The reports the following: Within the past 12 months, you worried whether your food would run out before you got money to buy more. Never true Within the past 12 months, the food you bought just didn't last and you didn't have money to get more. Never true Alcohol Use Screen (AUDIT-C): Alcohol Screen: SCREEN FOR ALCOHOL (AUDIT-C) An alcohol screening test (AUDIT-C) was negative (score=0). 1. How often did you have a drink containing alcohol in the past year? Consider a drink to be a 12 ounce can or bottle of regular beer, 8 ounces of malt liquor, a 5 ounce glass of table wine, or a 1.5 ounce shot of liquor (like scotch, gin, or vodka). Never 2. How many drinks containing alcohol did you have on a typical day when you were drinking in the past year? Response not required due to responses to other questions. 3. How often did you have six or more drinks on one occasion in the past year? Response not required due to responses to other questions. RHS Screen: RHS Screen Environmental Check Screening was not completed at this time due to: Another adult present Medication Reconciliation: Perform Medication Reconciliation JLV Link Data on this list may not be complete. Please check JLV. Allergies/ADRs (Tool #5) FACILITY ALLERGY/ADR -------- [facility] IOHEXOL [place] [facility] OMNIPAQUE 350 INJECTION Med Recon NoGlossary (Tool #1) INCLUDED IN THIS LIST: Alphabetical list of active outpatient prescriptions dispensed from this [facility] (local) and dispensed from another [facility] or [facility] facility (remote) as well as inpatient orders (local pending and active), local clinic medications, locally documented non-VA medications, and local prescriptions that have or been discontinued in the past 90 days. Non-VA Meds Last Documented On: May 22, 2016 NOTE The display of VA prescriptions dispensed from another [facility] or [facility] facility (remote) is limited to active outpatient prescription entries matched to National Drug File at the originating site and may not include some items such as investigational drugs, compounds, etc. NOT INCLUDED IN THIS LIST: Medications self-entered by the patient into personal health records (i.e. [employer]) are NOT included in this list. Non-VA medications documented outside this [facility], remote inpatient orders (regardless of status) and remote clinic medications are NOT included in this list. The patient and provider must always discuss medications the patient is taking, regardless of where the medication was dispensed or obtained. OUTPT ATORVASTATIN CALCIUM 40MG TAB (Status = Active) TAKE TWO TABLET(S) BY MOUTH EVERY EVENING TO LOWER CHOLESTEROL Rx# [id number] Last Released: 12/09/23 Qty/Days Supply: 180/ Rx Expiration Date: 05/10/24 Refills Remainin OUTPT DIPHENHYDRAMINE HCL 50MG CAP (Status = Discontinued) TAKE ONE CAPSULE BY MOUTH ONCE - TAKE ONE HOUR PRIOR TO CT Rx# [id number] Last Released: 11/06/23 Qty/Days Supply: 08/23 Rx Expiration Date: 12/04/23 Refills Remainin Indication: FOR CT CONTRAST PROPHYLAXIS OUTPT LACOSAMIDE 50MG TAB (Status = ) TAKE FOUR TABLETS BY MOUTH TWICE A DAY MAY TAKE AN EXTRA TWO TABLETS IF ANY UTI,FEVER, OR ANY SURGICAL PROCEDURE Rx# [id number] Last Released: 12/30/23 Qty/Days Supply: Rx Expiration Date: 01/15/24 Refills Remainin OUTPT LACOSAMIDE 50MG TAB (Status = Active) TAKE FOUR TABLETS BY MOUTH TWICE A DAY . MAY TAKE 2 EXTRA TABLETS (100MG) IF ANY UTI, FEVER OR ANY SURGICAL PROCEDURE. Rx# [id number] Last Released: 01/27/24 Qty/Days Supply: Rx Expiration Date: 07/26/24 Refills Remainin OUTPT MELATONIN 3MG CAP/TAB (Status = Active) TAKE ONE CAP/TAB BY MOUTH AT BEDTIME NEEDED FOR SLEEP Rx# [id number] Last Released: 12/23/23 Qty/Days Supply: 120/90 Rx Expiration Date: 05/10/24 Refills Remainin OUTPT METHYLPREDNISOLONE 32MG TAB (Status = Discontinued) TAKE ONE TABLET BY MOUTH TWICE A DAY - TAKE 1 TABLET 12 HOURS AND 2 HOURS PRIOR TO THE ADMINSTRATION OF CONTRAST MEDIA (LASSER PROTOCOL) Rx# [id number] Last Released: 11/06/23 Qty/Days Supply: 09/23 Rx Expiration Date: 12/04/23 Refills Remainin 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 Rx# [id number] Last Released: 12/06/23 Qty/Days Supply: 05/03 Rx Expiration Date: 01/01/24 Refills Remainin Indication: TO PREVENT UTI OUTPT POTASSIUM CHLORIDE 10MEQ SA TAB (Status = Active) TAKE ONE TABLET BY MOUTH EVERY MORNING WITH BREAKFAST TO SUPPLEMENT POTASSIUM Rx# [id number] Last Released: 02/15/24 Qty/Days Supply: 90 Rx Expiration Date: 05/10/24 Refills Remainin Indication: TO SUPPLEMENT POTASSIUM OUTPT TAMSULOSIN HCL 0.4MG CAP (Status = Active) TAKE ONE CAPSULE BY MOUTH TWICE A DAY 30 MINUTES AFTER THE SAME MEALTIME EACH DAY FOR PROSTATE/URINARY SYMPTOMS. Rx# [id number] Last Released: 02/21/24 Qty/Days Supply: 60/30 Rx Expiration Date: 05/10/24 Refills Remainin OUTPT ZZZLACTOBACILLUS COMBO TAB (Status = Discontinued) TAKE ONE TABLET BY MOUTH ONCE DAILY FOR GI Rx# [id number] Last Released: 12/23/23 Qty/Days Supply: Rx Expiration Date: 05/26/24 Refills Remainin Indication: FOR GI SUPPLIES OUTPT DRESS,MEPILEX BORDER FLEX 4X4IN #875100 (Status = Discontinued) APPLY ONE DRESSING TOPICALLY TWO TIMES PER WEEK APPLY DIRECTED Rx# [id number] Last Released: 11/05/23 Qty/Days Supply: Rx Expiration Date: 11/02/24 Refills Remainin OUTPT DRESS,MEPILEX BORDER FLEX 4X4IN #[id number] (Status = Discontinued) APPLY ONE DRESSING TOPICALLY EVERY THIRTY-SIX HOURS APPLY DIRECTED Rx# [id number] Last Released: 01/04/24 Qty/Days Supply: Rx Expiration Date: 12/30/24 Refills Remainin Indication: SACRAL PRESSURE SORE OUTPT DRESS,MEPILEX BORDER FLEX 4X4IN #439706 (Status = Active/Suspended) APPLY ONE DRESSING TOPICALLY EVERY THIRTY-SIX HOURS APPLY DIRECTED Rx# [id number] Last Released: QtyDays Supply: Rx Expiration Date: 02/21/25 Refills Remainin Indication: SACRAL PRESSURE SORE OUTPT DRESSING,HONEY TOP GEL (Status = ) APPLY SMALL AMOUNT TOPICALLY TWO TIMES PER WEEK Rx# [id number] Last Released: 08/30/23 Qty/Days Supply: Rx Expiration Date: 11/24/23 Refills Remainin OUTPT DRESSING,MEPILEX BORDR 8.7X9.8IN #[id number] (Status = Discontinued) APPLY ONE DRESSING TOPICALLY DIRECTED Rx# [id number] Last Released: 08/31/23 Qty/Days Supply: Rx Expiration Date: 03/04/24 Refills Remainin Comments: The patient's Essential Medication List for Review was used for reconciliation to address additions, deletions, and changes as reported by the patient/caregiver. The patient/caregiver indicates that medications are being taken as documented as described above. Was medication education provided for new medications or changes to medications? (including medication name, dose, route, reason for use, and potential side effects). Yes. Verbal education was provided to patient/caregiver and patient/caregiver verbalized understanding. Advance Directive Screen MH AD: Patient has an Advance Directive on file at this [facility]. No updates are needed at this time. The patient received education about Advance Directives and written notification of his/her rights. Sexual Orientation: The patient thinks of their sexual orientation as: Straight or Heterosexual /vivian/ CRESENCIO MEDINA DO DO Signed: 02/21/2024 14:16 CRSEENCIO MEDINA [facility] Feb 21, 2024 09:03 AM GERIATRIC MEDICINE NOTE: LOCAL TITLE: GERIATRIC EVALUATION NOTE STANDARD TITLE: GERIATRIC MEDICINE NOTE DATE OF NOTE: FEB 21, 2024@09:03 ENTRY DATE: FEB 21, 2024@09:03:32 AUTHOR: CRESENCIO MEDINA EXP COSIGNER: URGENCY: STATUS: COMPLETED GERIATRIC EVALUATION NOTE Has ADDENDA Type of Evaluation: Geriatric Follow-up GERIATRIC CONSULT ASSESSMENT LAST SAW ONE YEAR AGO 01/2023 Mr. Galina Loyd is a 77 yo who is here for 1 year follow-up followup Geriatric Evaluation. saw him inpatient 06/2021 here for follow up on hallucinations, memory deficits in setting of subdural, history of seizures and R MCA stroke; increasing fragility over the course of 2 years with history of Dementia BRIEF HISTORY: 75 year old MALE with PMH of follicular lymphoma, ischemic stroke 09/2019, left subdural hygroma, parafalcine SDH, SAH, post stroke epilepsy, alcohol use history not in the last 2-3 years. prostate cancer s/p RT (ended in 04/2020), chronic indwelling urinary catheter complicated with multiple recent exchanges and multiple UTIs in the past year with recent giraldo removal 09/2021 thinks things overall okay wish they were going better. reports that finally his urine is normal no blood in the urine. no pain no falls using the cane only. alot of sitting during the day. never walks for exercise. has seizure last wednesday. said she knew it was coming because they never drinks fluids as recommended. 4 days before was not drinking fluids. he was very focused and not drinking fluids. cant do two things at once. feels like dehydrated may have led to the seizure. has an appointment march 23 with neurologist. he thinks memory is not as good as it used to be. he feels memory is not as good so worse. appetite is down. up 4 lbs from last visit. sleeping well at night. He denies hallucinations notes that the other day he noted he had caught a rabbit but he relates this was more so related to dream which he does not feel he is having these hallucinations related to dreams any longer. Is hard to decipher the history of these hallucinations considering the dynamic between and his he is off remeron, led to weird dreams. does not think he has CT 04/2024 doesnt have contrast allergy. he feels he does. was sent the medications for CT allergy but does not think he needs it. Urology procedures for bilateral renal stones occurred in the interim [facility] neurology consult for seizure disorder Note reviewed from 10/18/2023 follow-up focal epilepsy diagnosis is partial symptomatic epilepsy with complex partial seizures On Lacosamide Follow-up on his follicular lymphoma no evidence of recurrence He follows with at [facility] for cont neuro f/u for subdural and seizure disorder. notes he has seizures only when he is ill sick with a UTI. walking with cane now.does not use walker per history as follows: 09/2019 Ischemic CVA with distal MCA occlusion/right frontal infarct. stopped drinking alcohol. post stroke seizure disorder 11/2019 diagnosed with prostate cancer 01/2021 through 04/2021 prostate cancer treatment with RT started having seizures 08/2020 Non-traumatic L SDH s/p L MMA embolization resulting left subdural hygroma 12/2020 had another seizure at increased his seizure medication during admission to [facility]. 01/2021 Traumatic(after fall) parafalcine SDH and SAH with seizure. Has baseline was LUTS with nocturia x 3-4 and history of intermittent issues with urination since that time *Multiple urologic procedures in the interim year secondary to nephrolithiasis ADLs and IADLs: Independent (I), Dependent (D), Needs Help (H) ADLs: Bathing: D she washes him in the shower. sometime she has a shower chair. has a good walk in shower for this. have grab bars. Has grab bars around the toilet. A lot of grab bars. Tub/shower. Shower chair. No trouble just fear of slipping. Dressing: D said he can do this now and put his clothes Toileting: I Transferring: I cane or walker in the home. never using walker now--now mainly cane Managing continence: no longer have loser stools, better diet with brand flakes. encourages fluids. depends for urine loss, changing them once to twice a day. using three depends daily. no change Eating: I IADLs: Telephone: D , he can make phone calls. makes appt and schedules. Shopping: D, does all the shopping. he does not leave the home. only doctors appt will leave the house. Housework: D does this. functionally he thinks he could do it. Laundry: D on , never tried functionally think he could do it. Preparing meals: D. does all the cooking and always has. before his injuries could make breakfast. a little while ago he forgot to shut off the gas on the stove and thought not take a chance. making all the meals Driving (accidents, tickets, near misses): D, ever since stroke no more driving drives Medications (pill box, who fills):D does his medications and this has been since 1 year, she fills them and he remembers to take them. Finances (taxes, bill pay, money management):D has been doing 45 years Problem List: Active problems - Computerized Problem List is the source for the followin. Bradycardia 2. Non-traumatic subdural hemorrhage 3. AAA - Abdominal aortic aneurysm 4. Thoracic aortic aneurysm without rupture 5. Follicular non-Hodgkin lymphoma, small cleaved cell 6. Tobacco dependence 7. Alcohol dependence 8. Hypertension 9. Family history of prostate cancer 10. Family history of malignant neoplasm of breast 11. Injury due to chemical exposure (SNOMED CT [id number]) Follicular Lymphoma [place] [facility] [place] biopsy proven follicular non-Hodgkin's lymphoma on 12/09/15. Underwent six cycles of R-CVP with additional consolidation therapy now in remission. Ischemic CVA with distal MCA occlusion/right frontal infarct (09/2019) complicated by post stroke epilepsy Non-traumatic L SDH s/p L MMA embolization (08/2019)with resulting left subdural hygroma Traumatic(after fall) parafalcine SDH and SAH 01/2021. Last CT head in 03/2021 showing slightly more prominent subdural hematoma of left frontoparietal area with improvement in other areas of intercranial hemorrhage. Active and Recently Outpatient Medications (including Supplies): Active Outpatient Medications Status 1) ATORVASTATIN CALCIUM 40MG TAB TAKE TWO TABLET(S) BY ACTIVE MOUTH EVERY EVENING TO LOWER CHOLESTEROL 2) DRESS,MEPILEX BORDER FLEX 4X4IN #548477 APPLY ONE ACTIVE DRESSING TOPICALLY EVERY THIRTY-SIX HOURS APPLY DIRECTED 3) DRESSING,MEPILEX BORDR 8.7X9.8IN #[id number] APPLY ONE ACTIVE DRESSING TOPICALLY DIRECTED 4) LACOSAMIDE 50MG TAB TAKE FOUR TABLETS BY MOUTH TWICE ACTIVE A DAY . MAY TAKE 2 EXTRA TABLETS (100MG) IF ANY UTI, FEVER OR ANY SURGICAL PROCEDURE. 5) MELATONIN 3MG CAP/TAB TAKE ONE CAP/TAB BY MOUTH AT ACTIVE BEDTIME NEEDED FOR SLEEP 6) POTASSIUM CHLORIDE 10MEQ SA TAB TAKE ONE TABLET BY ACTIVE MOUTH EVERY MORNING WITH BREAKFAST TO SUPPLEMENT POTASSIUM 7) TAMSULOSIN HCL 0.4MG CAP TAKE ONE CAPSULE BY MOUTH ACTIVE TWICE A DAY 30 MINUTES AFTER THE SAME MEALTIME EACH DAY FOR PROSTATE/URINARY SYMPTOMS. ALLERGIES: OMNIPAQUE 350 INJECTION SOCIAL HISTORY: SOCIAL: Galina reports that he lives with his in a home with 5 stairs to enter and 2 stories, although he plans to modify to be able to stay on the first floor, which has a bed and full bath as well as the kitchen. 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 REVIEW OF SYSTEMS: GEN: Denies excessive fatigue. Reports normal energy level. Reports normal appetite. ENDO: Denies significant weight changes HEENT: Denies ear pain, sore throat. CV: Denies chest pain, DUNNE, irregular HR, palpitations. Denies lightheadedness, dizziness upon standing. PULM: Denies SOB, difficulty breathing, cough GI: Denies n/v/d, constipation, melena or hematochezia : Denies urinary frequency, urgency, nocturia, changes in libido, difficulty/changes with erections. SA. MSK: Denies joint pain, myalgias NEURO: Denies headaches, numbness, weakness, paresthesia, change in gait/balance EXT: Denies edema, myalgia or arthralgia SKIN: Denies new lesions. Denies pressure sores. PSYCH: Feels safe at home. Denies feeling anxious, down, depressed or hopeless. Denies loss of interest or pleasure in previously enjoyable activities. PHYSICAL EXAM: Temp: 97.9 F [36.6 C] (02/21/2024 10:09) Pulse: 71 (02/21/2024 10:09) BP: 117/72 (02/21/2024 10:09) Resp: 20 (12/21/2023 14:25) 02/21/24 @ 1009 PULSE OXIMETRY: 96 HT(in): 69 in [175.3 cm] (12/16/2023 10:13) WT(lbs):124.9 lb [56.65 kg] (02/21/2024 10:09) WT(lbs):121 lb [54.88 kg] (02/25/2023 10:39) WT(lbs):153.1 lb [69.44 kg] (02/26/2022 11:32) WT: 139.7 lb. [63.5 kg] (07/01/2021 21:00) HT: 70.5 in [179.1 cm] (07/01/2021 21:00) Previous weights: GEN: Well-appearing, no apparent distress. Dress is congruent with weather. thin,frail thin, poor muscle tone ENT: hearing intact NECK: supple. Thyroid normal. CV/pulm clear to auscultation regular rate and rhythm EXT: No edema AB: NT/ND bs+ MSK: Bilat UE and LE proximal and distal strength 5/5 SKIN: pink warm dry, no rashes. No pressure wounds noted. LYMPH: no lymphadenopathy PSYCH: Appropriate affect and demeanor, normal speech pattern MOCA: 02/21/2024 VISUOSPATIAL/EXECUTIVE: Trails: 0/ unable to decide where to start Cube: 08/23 Clock: Contour: 08/23 Numbers: Hands: 08/23 NAMIN/3 ATTENTION: Backward Digits: 0 Tapping A: Serial 7s: 09/25 LANGUAGE: Repetition: 2 Fluency: 01 ABSTRACTION: 2 RECALL: 09/27 (with category clues /5, with multiple choice /5) ORIENTATION: 01/26 TOTAL: MOCA:01/2023 TOTAL: MOCA: 06/2021 TOTAL: MOCA: 02/26/22 TOTAL: IMAGIN07/03/2021 CT HEAD showing 1.1 x 0.3 cm hyperdense left frontal extra-axial low compatible with acute subdural hemorrhage. Findings compatible with subacute subdural hemorrhage superimposed on chronic subdural hygroma. 07/01/21 CT lumbar spine showing moderate superior endplate fragility fracture of T12 chronic in nature 07/01/[address] head 07/04/21 Impression: 1. Stable focus of left subdural hemorrhage -- no significant interval change as compared with the 07/03/2021 scan. 2. Slender extra-axial subdural crescentic collection overlying the left frontal/parietal convexity -- subacute on chronic subdural hematoma -- unchanged. 3. Previously noted small left frontal subdural has virtually resolved since the 12/07/2020 scan4. 4. Old area of right frontal/parietal infarction -- stable. 5. Cerebral atrophy -- unchanged. 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 Johnston is full assist with IADLs and some ADLs which is unchanged. MoCA score waxes and wanes between 22-26 on testing over the last several years consistent with a vascular process rather than a neurodegenerative process at this time his hallucinations/delusions have resolved no noted PTSD related sleep disorder, sleeping well already accepted for catastrophically impaired status we had discussed MRI brain in the past and they deferred to after PCP discussion. I do wonder if his outside neurologist has done this in the past. I do suspect it would be worth completing to define deficits and abnormality seen on CT. I do not hear any recent acute changes. A lot of argument/discussion with and his today during visit about his ability to have an MRI versus a CT and the prep required. He has follow-up with his PCP in a week we will add her to see if MRI brain could be discussed at their visit proceed if willing at that time Carination instant breakfast and milkshakes he has been doing and he has gained 5 pounds since last visit which is reassuring. But still appears quite sarcopenic. We do not have much to add or change today last visit was made if they felt helpful. Without any new changes or concerns today regarding current geriatric syndromes will make future follow-ups as needed --11/18/2017 advance directive in the chart [facility] NO alternative selected reviewed. would consider completing new AD as outpatient for secondary selection, daughter present as engaged with care today at visit. Thank you for this consult. We will see this again PRN I spent 45 minutes of this 51 minute face to face visit counseling patient on the above clinical concerns. /vivian/ CRESENCIO MEDINA DO DO Signed: 02/21/2024 13:51 02/21/2024 ADDENDUM STATUS: COMPLETED we had discussed MRI brain in the past and they deferred to after PCP discussion. I do wonder if his outside neurologist has done this in the past. I do suspect it would be worth completing to define deficits and abnormality seen on CT. I do not hear any recent acute changes. A lot of argument/discussion with and his today during visit about his ability to have an MRI versus a CT and the prep required. He has follow-up with his PCP in a week we will add her to see if MRI brain could be discussed at their visit proceed if willing at that time /vivian/ CRESENCIO MEDINA DO DO Signed: 02/21/2024 13:51 Receipt Acknowledged By: * AWAITING SIGNATURE * KYRA VELASQUEZ 02/21/2024 ADDENDUM STATUS: COMPLETED Pressure Ulcer Risk Screening: Is the patient bed confined, a wheel chair user, and/or does the patient require assistance to transfer? NO Does the patient have a pressure ulcer or history of pressure ulcers? NO Tobacco Use Screening: The patient uses tobacco every day. The patient uses tobacco within 30 minutes of waking up. The patient has been smoking or using tobacco for more than fifteen years and less than thirty years. Patient was advised to quit smoking and/or using tobacco. Discussion with patient included: - Quitting smoking or tobacco use is one of the most important things you can do to protect and improve your health and [place] has the resources to support you. - Set a quit date when you are ready to quit. - Get support from your family and friends. - Review any past quit attempts- What helped? What didn't? - On the day you plan to quit, get rid of all cigarettes and tobacco products from your home, car or work. - Using a combination of behavioral counseling or other support strategies and FDA-approved cessation medications is the most effective way to ensure success in quitting. Patient was offered Behavioral Counseling and other support strategies to assist with quitting. Discussion with patient included: - Behavioral counseling or other support strategies greatly increases your chances of successfully quitting smoking or tobacco use by helping you develop a quit plan and providing support and other strategies to make behavioral changes to help you quit. - [place] has a number of behavioral counseling options to help you with quitting, including: * Provide information about the facility smoking or tobacco use treatment options or clinics * [place]'s national quitline, 0-684-ARGL-VET, with counseling available Wednesday-Wednesday The patient was not interested in receiving additional information about how to use the treatment options discussed. Patient was offered FDA-approved cessation medications. Discussion with patient included: - Medications for Nicotine replacement therapy such as the patch, gum or lozenge, and other medications such as varenicline or bupropion, can play an important role in the initial weeks and months after you quit smoking or tobacco use. - Medications help with cravings and withdrawal symptoms and they greatly increase your chances of successfully quitting. The patient was not interested in a prescription for tobacco cessation medications. Falls & Incontinence Screen: Falls Screen: 4. No falls within the past year. Incontinence Screen: No incontinence. Frail/Elderly ADL & IADL Screens: ADL Screen - [place] Index of [place] in Activities of Daily Living Record INDEX of ADL. Score = 11 1. Bathing: either sponge bath, tub bath or shower. Receives assistance in bathing more than one part of the body (or not bathed). 2. Dressing: gets clothes from closets and drawers, including under-clothes, outer garments and using fasteners (including braces if worn). Receives assistance in getting clothes, or dressing, or stays partly or completely undressed. 3. Toileting: going to the toilet room for bowel and urine elimination; cleaning self after elimination and arranging clothes. (May use cane, walker, or wheelchair, and manage bedpan or commode, emptying same next morning). Receives assistance with at least one procedure above. 4. Transfer: Moves in and out of bed with assistance. 5. Continence: Has occasional accidents of urination or bowels. 6. Feeding: Feeds self without assistance. IADL Screen - [place] Instrumental Activities of Daily Living Scale Ability to use telephone: (1 point) Operates Telephone on own initiative; looks up and dials numbers. Shopping: (0 points) Shops independently for small purchases. Food preparation: (0 points) Needs to have meals prepared and served. Housekeeping: (0 points) Does not participate in any housekeeping tasks. Laundry: (0 points) All laundry must be done by others. Mode of transportation: (0 points) Does not travel at all. Responsibility for own medications: (0 points) Takes responsibility if medication is prepared in advance in separate dosages. Ability to handle finances: (0 points) Incapable of handling money. Total score: 3 points 8 = High function, independent 0 = Low function, dependent Homelessness/Food Insecurity Screen: In the past 2 months, have you been living in stable housing that you own, rent, or stay in as part of a household? Yes - Living in stable housing. Are you worried or concerned that in the next 2 months you may NOT have stable housing that you own, rent, or stay in as part of a household? No - Not worried about housing near future The [facility] reports the following: Within the past 12 months, you worried whether your food would run out before you got money to buy more. Never true Within the past 12 months, the food you bought just didn't last and you didn't have money to get more. Never true Alcohol Use Screen (AUDIT-C): Alcohol Screen: SCREEN FOR ALCOHOL (AUDIT-C) An alcohol screening test (AUDIT-C) was negative (score=0). 1. How often did you have a drink containing alcohol in the past year? Consider a drink to be a 12 ounce can or bottle of regular beer, 8 ounces of malt liquor, a 5 ounce glass of table wine, or a 1.5 ounce shot of liquor (like scotch, gin, or vodka). Never 2. How many drinks containing alcohol did you have on a typical day when you were drinking in the past year? Response not required due to responses to other questions. 3. How often did you have six or more drinks on one occasion in the past year? Response not required due to responses to other questions. RHS Screen: RHS Screen Environmental Check Screening was not completed at this time due to: Another adult present Medication Reconciliation: Perform Medication Reconciliation JLV Link Data on this list may not be complete. Please check JLV. Allergies/ADRs (Tool #5) FACILITY ALLERGY/ADR -------- [facility] IOHEXOL [facility] OMNIPAQUE [address] [facility] (Tool #1) INCLUDED IN THIS LIST: Alphabetical list of active outpatient prescriptions dispensed from this [place] (local) and dispensed from another [place] or [facility] facility (remote) as well as inpatient orders (local pending and active), local clinic medications, locally documented non-VA medications, and local prescriptions that have or been discontinued in the past 90 days. Non-VA Meds Last Documented On: May 22, 2016 NOTE The display of VA prescriptions dispensed from another [place] or [facility] facility (remote) is limited to active outpatient prescription entries matched to National Drug File at the originating site and may not include some items such as investigational drugs, compounds, etc. NOT INCLUDED IN THIS LIST: Medications self-entered by the patient into personal health records (i.e. AptDeco) are NOT included in this list. Non-VA medications documented outside this [place], remote inpatient orders (regardless of status) and remote clinic medications are NOT included in this list. The patient and provider must always discuss medications the patient is taking, regardless of where the medication was dispensed or obtained. 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 MAY TAKE 2 EXTRA TABLETS (100MG) IF ANY UTI, FEVER OR ANY SURGICAL PROCEDURE. Rx# [id number] Last Released: 01/27/24 Qty/Days Supply: Rx Expiration Date: 07/26/24 Refills Remainin OUTPT MELATONIN 3MG CAP/TAB (Status = Active) TAKE ONE CAP/TAB BY MOUTH AT BEDTIME NEEDED FOR SLEEP Rx# [id number] Last Released: 12/23/23 Qty/Days Supply: 120/ Rx Expiration Date: 05/10/24 Refills Remainin OUTPT METHYLPREDNISOLONE 32MG TAB (Status = Discontinued) TAKE ONE TABLET BY MOUTH TWICE A DAY - TAKE 1 TABLET 12 HOURS AND 2 HOURS PRIOR TO THE ADMINSTRATION OF CONTRAST MEDIA (LASSER PROTOCOL) Rx# [id number] Last Released: 11/06/23 Qty/Days Supply: 09/23 Rx Expiration Date: 12/04/23 Refills Remainin 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 Rx# [id number] Last Released: 12/06/23 Qty/Days Supply: 05/03 Rx Expiration Date: 01/01/24 Refills Remainin Indication: TO PREVENT UTI OUTPT POTASSIUM CHLORIDE 10MEQ SA TAB (Status = Active) TAKE ONE TABLET BY MOUTH EVERY MORNING WITH BREAKFAST TO SUPPLEMENT POTASSIUM Rx# [id number] Last Released: 02/15/24 Qty/Days Supply: 90 Rx Expiration Date: 05/10/24 Refills Remainin Indication: TO SUPPLEMENT POTASSIUM OUTPT TAMSULOSIN HCL 0.4MG CAP (Status = Active) TAKE ONE CAPSULE BY MOUTH TWICE A DAY 30 MINUTES AFTER THE SAME MEALTIME EACH DAY FOR PROSTATE/URINARY SYMPTOMS. Rx# [id number] Last Released: 02/21/24 Qty/Days Supply: Rx Expiration Date: 05/10/24 Refills Remainin OUTPT ZZZLACTOBACILLUS COMBO TAB (Status = Discontinued) TAKE ONE TABLET BY MOUTH ONCE DAILY FOR GI Rx# [id number] Last Released: 12/23/23 Qty/Days Supply: Rx Expiration Date: 05/26/24 Refills Remainin Indication: FOR GI SUPPLIES OUTPT DRESS,MEPILEX BORDER FLEX 4X4IN #[id number] (Status = Discontinued) APPLY ONE DRESSING TOPICALLY TWO TIMES PER WEEK APPLY DIRECTED Rx# [id number] Last Released: 11/05/23 Qty/Days Supply: Rx Expiration Date: 11/02/24 Refills Remainin OUTPT DRESS,MEPILEX BORDER FLEX 4X4IN #[id number] (Status = Discontinued) APPLY ONE DRESSING TOPICALLY EVERY THIRTY-SIX HOURS APPLY DIRECTED Rx# [id number] Last Released: 01/04/24 Qty/Days Supply: Rx Expiration Date: 12/30/24 Refills Remainin Indication: SACRAL PRESSURE SORE OUTPT DRESS,MEPILEX BORDER FLEX 4X4IN #[id number] (Status = Active/Suspended) APPLY ONE DRESSING TOPICALLY EVERY THIRTY-SIX HOURS APPLY DIRECTED Rx# [id number] Last Released: Qty/Days Supply: Rx Expiration Date: 02/21/25 Refills Remainin Indication: SACRAL PRESSURE SORE OUTPT DRESSING,HONEY TOP GEL (Status = ) APPLY SMALL AMOUNT TOPICALLY TWO TIMES PER WEEK Rx# [id number] Last Released: 08/30/23 Qty/Days Supply: Rx Expiration Date: 11/24/23 Refills Remainin OUTPT DRESSING,MEPILEX BORDR 8.7X9.8IN #[id number] (Status = Discontinued) APPLY ONE DRESSING TOPICALLY DIRECTED Rx# [id number] Last Released: 08/31/23 Qty/Days Supply: Rx Expiration Date: 03/04/24 Refills Remainin Comments: The patient's Essential Medication List for Review was used for reconciliation to address additions, deletions, and changes as reported by the patient/caregiver. The patient/caregiver indicates that medications are being taken as documented as described above. Was medication education provided for new medications or changes to medications? (including medication name, dose, route, reason for use, and potential side effects). Yes. Verbal education was provided to patient/caregiver and patient/caregiver verbalized understanding. Advance Directive Screen MH AD: Patient has an Advance Directive on file at this [facility]. No updates are needed at this time. The patient received education about Advance Directives and written notification of his/her rights. Sexual Orientation: The patient thinks of their sexual orientation as: Straight or Heterosexual /vivian/ CRESENCIO MEDINA DO DO Signed: 02/21/2024 14:16 CRESENCIO MEDINA [facility]
--- OUTSIDE RECORDS SUMMARY | 2024-05-24 19:21 | XMS_ITS | Encounter Summary ---
Author Name [place] Organization [place] Address [address] [place] [address] Care Team Providers Care Promotions Assistant Name Role Phone RON KYRA Primary Care [...] Ervin's Name Patient's Relationship to Policy Ervin [facility] (WNR) MEDICARE ADVANTAGE [facility](W NR) * Aug 23, 2023 [id number] ANNALISA LOYD ITE PATIENT [facility] MCR (WNR) MEDICARE ADVANTAGE [facility] (WNR) Aug 23, 2020 [id number] [phone] ANNALISA LOYD ITE PATIENT [facility] (WNR) MEDICARE ADVANTAGE [facility](W NR) Aug 23, 2012 [id number] ANNALISA LOYD ITE PATIENT Selected Encounter This section includes the information on record at [place] for the Encounter. Date/Time Encounter Type Encounter Description Reason Provider Source Dec 16, 2023 11:04 AM Outpatient Encounter PATIENT CARE [facility] Encounter Template Text not used by [place] Plan of Treatment: Future Appointments (+ 6 months) and Future Tests (+/- 45 days) The Plan of Treatment section includes future care activities for the patient from all [place] treatmentfaour community hospitalities. This section includes future [...] AMBULATORY - [place] [facility] Feb 21, 2024 10:15 AM AMBULATORY - [place]ONE [place] [facility] Feb 21, 2024 11:00 AM [place]UL[place]ORY - [place]ONE [place] [facility] Mar 18, 2024 12:01 AM [place]ULATORY - NONE [place] [facility] Apr 06, 2024 01:00 PM AMBULATORY - NONE [place] [facility] Apr 06, 2024 01:00 PM AMBULATORY - MEDICINE [facility] Apr 10, 2024 01:30 PM AMBULATORY - MEDICINE [facility] Apr 10, 2024 01:31 PM [place]ORY - [place]ONE [place] [facility] Apr 11, 2024 10:00 AM AMBULATORY - SURGERY [facility] Apr 11, 2024 10:01 AM [place]BUL[place]ORY - [place]GERY [place] [facility] Apr 21, 2024 10:30 AM [place]ATORY - NONE [place] [facility] May 03, 2024 02:30 PM [place] [facility] May 04, 2024 10:30 AM [place] [facility] May 04, 2024 11:00 AM [place]BUL[place]ORY - [place]GERY [place] [facility] May 04, 2024 12:30 PM AMBULATORY - NONE [place] [facility] May 04, 2024 01:00 PM [place]BULATORY - [place]GERY [place] [facility] May 08, 2024 02:30 PM AMBULATORY - MEDICINE [facility] May 08, 2024 02:31 PM [place]ORY - [place]ONE [place] [facility] May 16, 2024 10:00 AM AMBULATORY - SURGERY [facility] May 16, 2024 10:01 AM AMBULATORY - SURGERY [facility] Active, Pending, and Scheduled [...] 12:13 PM Consult Order COMMUNITY CARE-NEUROLOGY Cons Classifying Machine Operator's Choice [facility] Lab Results: +/- 30 [...] Range Comment Nov 29, 2023 11:27 AM [facility] URINALYSIS W/REFLEX TO CULTURE Specimen Type: URINE No comment entered. Ordering Provider: MIRIAN OSORIO CH Report Released Date/Time: Nov 24, 2023 05:48 PM Reporting Lab: [facility] [address] [facility] [address] Performing Lab: [facility] [address] [facility] [address] URINE COLOR Light-Kemper NOT DEFINED SPECIFIC GRAVITY 1.013 1.003-1.030 UROBILINOGEN [...] 136/84 20 96 0 69 122.3 18 [facility] Social History: Smoking Status (Most [...] the Encounter. The data comes from all [facility]. Date/Time Radiology Report Provider Source Dec 16, 2023 11:15 AM UROGRAM RETROGRADE : GALINA LOYD [id number] -1945 M Exm Date: DEC 16, 2023@11:15 Req Phys: [facility]BY OSORIO Pat Loc: [facility] GENERAL G2RD (Req'g Img Loc: XRAY (OOS) Service: [place] [address] (Case [id number] COMPLETE) UROGRAM RETROGRADE (RAD Detailed) CPT:93252 Contrast Media : Non-ionic Iodinated Proc Modifiers : OPERATING ROOM EXAM Reason for Study: bilat ureteroscopy laser litho, stent placement Clinical History: calculus of kidney Report Status: Verified Date Reported: DEC 16, 2023 Date Verified: DEC 16, 2023 Overlock Hemmer E-Sig:/ES/BENJAMÍN PIMENTEL Report: UROGRAM RETROGRADE 12/16/2023 11:15 AM Impression: Fluoroscopy performed during urology service procedure. FINDINGS: Procedure performed with the C-arm fluoroscopy . Fluoroscopy time 55 seconds, dose 9 mGy Fluoroscopic images consistent with history of bilateral ureteroscopy and stent placement. Labels from bilateral [employer] Contour double-J ureteral stents placed on the scanned worksheet Please see procedure note for further details. HISTORY: bilat ureteroscopy laser litho, stent placement, Primary Diagnostic Code: NO IMMEDIATE ATTENTION REQUIRED Primary Interpreting Staff: BENJAMÍN PIMENTEL, Staff Physician (Overlock Hemmer) /BENJAMÍN HYLTON [facility] Pathology Reports: +/- 30 days of [...] MICROBIOLOGY RE PORT: Reporting Lab: [facility] [CLIA# [id number]] [address] [place] [address] Accession [UID]: [id number] [[id number]] Received: Nov 30, 2023@19:53 Collection sample: URINE CLEAN CATCH Collection date: Nov 29, 2023 11:27 Site/Specimen: URINE Provider: CORBY OSORIO Test(s) ordered: CULTURE,URINE CLEAN CATCH..... completed: Dec 02, 2023 13:00 * BACTERIOLOGY FINAL REPORT => Dec 02, 2023 13:01 TECH CODE: [id number] Bacteriology Remark(s): 12/02/23 50,000-99,000 CFU/mL AT LEAST THREE BACTERIAL TYPES PRESENT INDICATING POSSIBLE CONTAMINATION, PLEASE REPEAT COLLECTION. =--=--=--=--=--=--=--=--=--=--= --=--=--=--=--=--=--=--=--=--=- -=--=--=--=--=-- Performing Laboratory: Bacteriology Report Performed By: SONYA PIN[facility] [CLIA# [id number]] [address] [place] [address] [facility]
--- OUTSIDE RECORDS SUMMARY | 2024-05-24 19:21 | XMS_ITS | Encounter Summary ---
Author Name [place] Organization [place] Address [address] [place] [address] Care Team Providers Care Printing Screen Assembler Name Role Phone KYRA VELASQUEZ Primary Care [...] Patient's Relationship to Policy Ervin [facility] (WNR) MEDICARE ADVANTAGE [facility](W NR) * Aug 23, 2023 [id number] ANNALISA LOYD ITE PATIENT [facility] (WNR) MEDICARE [facility] (WNR) Aug 23, 2020 [id number] [phone] ANNALISA LOYD ITE PATIENT [facility] (WNR) MEDICARE ADVANTAGE [facility](W NR) Aug 23, 2012 [id number] ANNALISA LOYD ITE PATIENT Selected Encounter This section includes the information on record at [place] for the Encounter. Date/Time Encounter Type Encounter Description Reason Pro vider Source December 29, 2023 09:16 AM Outpatient Encounter ADMIN PAT ACTIVTIES (MASNONCT) [...] AMBULATORY - NONE [place] [facility] Feb 21, 2024 11:00 AM AMBULATORY - NONE [place] [facility] Mar 18, 2024 12:01 AM AMBULATORY - NONE [place] [facility] Apr 06, 2024 01:00 PM AMBULATORY - NONE [place] [facility] Apr 06, 2024 01:00 PM AMBULATORY - MEDICINE [facility] Apr 10, 2024 01:30 PM AMBULATORY - MEDICINE [facility] Apr 10, 2024 01:31 PM AMBULATORY - NONE [place] [facility] Apr 11, 2024 10:00 AM AMBULATORY - SURGERY [facility] Apr 11, 2024 10:01 AM [place] [facility] Apr 21, 2024 10:30 AM AMBULATORY - NONE [place] [facility] May 03, 2024 02:30 PM [place]UL[place]GERY [place] [facility] May 04, 2024 10:30 AM [place] [facility] May 04, 2024 11:00 AM [place]BULATORY [place]GERY [place] [facility] May 04, 2024 12:30 PM [place]ULATORY - NONE [place] [facility] May 04, 2024 01:00 PM [place]UL[place]ORY - [place]GERY [place] [facility] May 08, 2024 02:30 PM AMBULATORY - MEDICINE [facility] May 08, 2024 02:31 PM [place]ULATORY - NONE [place] [facility] May 16, 2024 10:00 AM AMBULATORY - SURGERY [facility] May 16, 2024 10:01 AM [place]ORY - [place]GERY [place] [facility] May 19, 2024 08:00 AM AMBULATORY - NONE [facility] Active, Pending, and Scheduled Orders This section includes a listing of several types of active, pending, and scheduled orders, including clinic medications orders, diagnostic test orders, procedure orders and consult orders; where the start date of the order is 45 days before the date of the Encounter or 45 days after the date of theEncounter. The data comes from all [place] treatment facilities. Test Date/Time Test Type Test Details Facility Name January 18, 2024 12:13 PM Consult Order COMMUNITY CARE-NEUROLOGY Cons Solutions Specialist's Choice [facility] Social History: Smoking Status [...] 2021 02:27 PM CURRENT SMOKER REINIER GAYLE [facility] Tobacco Use History This section [...] 2023 11:15 AM UROGRAM RETROGRADE : GALINA LOYDEN [id number] M Exm Date: DEC 16, 2023@11:15 Req Phys: CORBY OSORIO Pat Loc: [facility] G[facility]RD (Req'g Img Loc: XRAY (OOS) Service: [place] [address] (Case [id number] COMPLETE) UROGRAM RETROGRADE (RAD Detailed) CPT:05332 Contrast Media : Non-ionic Iodinated Proc Modifiers : OPERATING ROOM EXAM Reason for Study: bilat ureteroscopy laser litho, stent placement Clinical History: calculus of kidney Report Status: Verified Date Reported: DEC 16, 2023 Date Verified: DEC 16, 2023 Medicare Biller E-Sig:/ES/BENJAMÍN PIMENTEL Report: UROGRAM RETROGRADE 12/16/2023 11:15 AM Impression: Fluoroscopy performed during urology service procedure. FINDINGS: Procedure performed with the C-arm fluoroscopy . Fluoroscopy time 55 seconds, dose 9 mGy Fluoroscopic images consistent with history of bilateral ureteroscopy and stent placement. Labels from bilateral [employer] Contour double-J ureteral stents placed on the scanned worksheet Please see procedure note for further details. HISTORY: bilat ureteroscopy laser litho, stent placement, Primary Diagnostic Code: NO IMMEDIATE ATTENTION REQUIRED Primary Interpreting Staff: BENJAMÍN PIMENTEL, Staff Physician (Medicare Biller) /BENJAMÍN HYLTON [facility] Pathology Reports: +/- 30 days [...] the Encounter. The data comes from all [facility] facilities. Date/Time Pathology Report Provider Source Nov 29, 2023 11:27 AM LR MICROBIOLOGY RE PORT: Reporting Lab: [facility] [CLIA# [id number]] [address] [place] [address] Accession [UID]: [id number] [[id number]] Received: Nov 30, 2023@19:53 Collection sample: URINE CLEAN CATCH Collection date: Nov 29, 2023 11:27 Site/Specimen: URINE Provider: CORBY OSORIO Test(s) ordered: CULTURE,URINE CLEAN CATCH..... completed: Dec 02, 2023 13:00 * BACTERIOLOGY FINAL REPORT => Dec 02, 2023 13:01 TECH CODE: [id number] Bacteriology Remark(s): 12/02/23 50,000-99,000 CFU/mL AT LEAST THREE BACTERIAL TYPES PRESENT INDICATING POSSIBLE CONTAMINATION, PLEASE REPEAT COLLECTION. =--=--=--=--=--=--=--=--=--=--= --=--=--=--=--=--=--=--=--=--=- -=--=--=--=--=-- Performing Laboratory: Bacteriology Report Performed By: [facility] [CLIA# [id number]] [address] [place] [address] [facility] Encounter Notes: All associated encounter notes This section contains the clinical notes associated to the Encounter. Date/Time Encounter Note(s) Provider Source December 29, 2023 09:16 AM ADMINISTRATIVE NOT E: LOCAL TITLE: Has Admin Note STANDARD TITLE: ADMINISTRATIVE NOTE DATE OF NOTE: DECEMBER 29, 2023@09:16 ENTRY DATE: DECEMBER 29, 2023@09:16:30 AUTHOR: SUZANNE JONES EXP COSIGNER: URGENCY: STATUS: COMPLETED Reason for call Clinic Name:[facility] Scheduled, Neg date and time w/pt /es/ SUZANNE JONES AMSA Signed: 12/29/2023 09:16 SUZANNE JONES [facility]
--- OUTSIDE RECORDS SUMMARY | 2024-05-24 19:21 | XMS_ITS | Encounter Summary ---
Author Name [facility] [place] Address [address] [place] [address] Care Team Providers Care Dragger Name Role Phone RON KYRA Primary Care [...] Ervin's Name Patient's Relationship to Policy Ervin [facility] (WNR) MEDICARE ADVANTAGE [facility](W NR) * Aug 23, 2023 [id number] ANNALISA LOYD ITE PATIENT [facility] MCR (WNR) MEDICARE ADVANTAGE MCR (WNR) Aug 23, 2020 [id number] [phone] ANNALISA LOYD ITE PATIENT [facility] MCR (WNR) MEDICARE ADVANTAGE [facility](W NR) Aug 23, 2012 [id number] ANNALISA LOYD ITE PATIENT Selected Encounter This section includes the information on record at [place] for the Encounter. Date/Time Encounter Type Encounter Description Reason Pro vider Source Jan 26, 2024 08:38 AM Outpatient Encounter COMMUNITY CARE CONSULT IHE Encounter Template Text not used by [facility] Plan of Treatment: Future Appointments (+ 6 months) and Future Tests (+/- 45 days) The Plan of Treatment section includes future care activities for the patient from all [place] [facility]. This section includes future appointments and future orders which are active, pending or scheduled. Future Appointments This section includes appointments that were scheduled to occur 6 months from the date of the Encounter, up to a maximum of 20 appointments. The data comes from all [place] treatment facilities. Appointment Date/Time Appointment Type Appointme nt Facility Name Feb 21, 2024 10:15 AM [place]ORY [place] [facility] Feb 21, 2024 11:00 AM AMBULATORY - NONE [place] [facility] Mar 18, 2024 12:01 AM AMBULATORY - NONE [place] [facility] Apr 06, 2024 01:00 PM AMBULATORY - NONE [place] [facility] Apr 06, 2024 01:00 PM AMBULATORY - MEDICINE [facility] Apr 10, 2024 01:30 PM AMBULATORY - MEDICINE [facility] Apr 10, 2024 01:31 PM AMBULATORY - NONE [place] [facility] Apr 11, 2024 10:00 AM AMBULATORY - SURGERY [facility] Apr 11, 2024 10:01 AM [place] [facility] Apr 21, 2024 10:30 AM AMBULATORY - NONE [place] [facility] May 03, 2024 02:30 PM AMBUL[place]ORY [place] [facility] May 04, 2024 10:30 AM [place] [facility] May 04, 2024 11:00 AM [place]BULATORY [place] [facility] May 04, 2024 12:30 PM AMBULATORY - NONE [place] [facility] May 04, 2024 01:00 PM AMBULATORY [place] [facility] May 08, 2024 02:30 PM AMBULATORY - MEDICINE [facility] May 08, 2024 02:31 PM AMBULATORY - NONE [place] [facility] May 16, 2024 10:00 AM AMBULATORY - SURGERY [facility] May 16, 2024 10:01 AM [place]ORY [place] [facility] May 19, 2024 08:00 AM AMBULATORY - [...] of theEncounter. The data comes from all [place] treatment facilities. Test Date/Time Test Type Test Details Facility Name January 18, 2024 12:13 PM Consult Order COMMUNITY CARE-NEUROLOGY Cons Dance Choreographer's Choice [facility] Social History: Smoking Status (Most current) and Tobacco Use (All prior to encounter date) This section includes the most current, and the historical, smoking and tobacco- related health factors from the [place] facility where the Encounter took place. Current Smoking Status This section includes the most current smoking, or tobacco-related health factor, from the [place] facility where the Encounter took place. Date/Time Current Smoking Status Comment Facil ity Jul 17, 2021 02:27 PM CURRENT SMOKER REINIER Bhatia [facility] Tobacco Use History This section includes a history of the smoking, or tobacco-related health factors, that were collected on or before the date of the Encounter. The data comes from the [place] facility where the Encounter took place. Date/Time [...] ALL of a patient's completed or amended [place] Advance and Rescinded Directives. The entries below indicate that a directive exists for the patient, but an actual copy is not included with this document. The data comes from all [place] facilities. Date Advance Directives Provider Source Nov 18, 2017 ADVANCE DIRECTIVE REBECCARADHA S [facility] Jul 08, 2017 ADVANCE DIRECTIVE DISCUSSION PURNIMA ROJAS [facility] Radiology Reports: +/- 30 [...] the Encounter. The data comes from all [place] treatment facilities. Date/Time Radiology Report Provider Source Feb 21, 2024 11:00 AM RENAL AND BLADDER ULTRASOUND: GALINA LOYD [id number] -1945 M Exm Date: FEB 21, 2024@11:00 Req Phys: BRITTNEY SOTO Pat Loc: [facility] [place] G2RD (Req'g L Img Loc: ULTRASOUND (OOS) Service: [place] [address] (Case [id number] COMPLETE) ULTRASOUND RENAL (US Detailed) CPT:58032 Reason for Study: US following ureteral stent removal, eval hydro/stones (Case 56 COMPLETE) ULTRASOUND PELVIS (US Detailed) CPT:99432 Clinical History: Please coordinate with Urology follow up in 3 months Report Status: Verified Date Reported: FEB 21, 2024 Date Verified: FEB 21, 2024 Pool Manager E-Sig:/VIVIAN/BRITTNEY PEDERSEN Report: Ultrasound -- renal/bladder: COMPARISON: [...] Primary Interpreting Staff: BRITTNEY PEDERSEN, RADIOLOGY ATTENDING (Pool Manager) /BRITTNEY FREIRE T [facility] Encounter Notes: All associated encounter notes This section contains the clinical notes associated to the Encounter. Date/Time Encounter Note(s) Provider Source Jan 26, 2024 08:38 AM NONVA NOTE: LOCAL TITLE: COMMUNITY CARE-CARE COORDINATION PLAN NOTE STANDARD TITLE: NONVA NOTE DATE OF NOTE: JAN 26, 2024@08:38 ENTRY DATE: JAN 26, 2024@08:38:48 AUTHOR: GAGANDEEP CHUNG EXP COSIGNER: URGENCY: STATUS: COMPLETED Community Care Consult: COMMUNITY CARE-NEUROLOGY Consult No: [id number] [facility] Referral #: [id number] Community Provider or Hospital Information Community Provider Information [facility] [address], [place] [address] Provisional Diagnosis: Other Seizures(ICD-10-CM G40.89) 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 Unknown Level of Care Coordination Complex/Chronic Care Coordination was determined from: Chart Review Facility Community Care Office Contact Care Coordination Point of Contact: [facility] Services: Moderate Care Coordination Services Case Management, if appropriate Direct communications with interdisciplinary team Plan: Referral sent to [facility]. Referral is valid for 180 days starting on the first appt date. /vivian/ GAGANDEEP CHUNG RN Signed: 01/26/2024 08:46 [facility]
--- OUTSIDE RECORDS SUMMARY | 2024-05-24 19:21 | XMS_ITS | Encounter Summary ---
Author Name [place] Address [address] [place] [address] Care Team Providers Care Line Runner Name Role Phone KYRA GUTIERREZ Primary Care Provider Unavailabl e Insurance Providers: [...] Patient's Relationship to Policy Ervin [facility] (WNR) MEDICARE ADVANTAGE [facility](W NR) * Aug 23, 2023 [id number] ANNALISA LOYD ITE PATIENT [facility] (WNR) MEDICARE ADVANTAGE [facility] (WNR) Aug 23, 2020 [id number] [phone] ANNALISA LOYD ITE PATIENT [facility] (WNR) MEDICARE ADVANTAGE [facility](W NR) Aug 23, 2012 [id number] ANNALISA LOYD ITE PATIENT Selected Encounter This section includes the information on record at [place] for the Encounter. Date/Time Encounter Type Encounter Description Reason Pro vider Source December 28, 2023 08:42 AM Outpatient Encounter PRIMARY CARE/MEDICINE IHE Encounter Template Text not used by VA Plan of Treatment: Future Appointments (+ 6 months) and Future Tests (+/- 45 days) The Plan of Treatment section includes future care activities for the patient [facility] [place] [facility] This section includes future appointments and future [...] AMBULATORY [place]ONE [place] [facility] Feb 21, 2024 11:00 AM AMBULATORY - NONE [place] [facility] Mar 18, 2024 12:01 AM AMBULATORY - NONE [place] [facility] Apr 06, 2024 01:00 PM AMBULATORY - NONE [place] [facility] Apr 06, 2024 01:00 PM AMBULATORY - MEDICINE [facility] Apr 10, 2024 01:30 PM AMBULATORY - MEDICINE [facility] Apr 10, 2024 01:31 PM AMBULATORY - NONE [place] [facility] Apr 11, 2024 10:00 AM AMBULATORY - SURGERY [facility] Apr 11, 2024 10:01 AM [place]BUL[place]ORY [place] [facility] Apr 21, 2024 10:30 AM AMBULATORY - NONE [place] [facility] May 03, 2024 02:30 PM AMBULATORY [place] [facility] May 04, 2024 10:30 AM [place] [facility] May 04, 2024 11:00 AM AMBULATORY [place]GERY [place] [facility] May 04, 2024 12:30 PM AMBULATORY - NONE [place] [facility] May 04, 2024 01:00 PM AMBULATORY [place] [facility] May 08, 2024 02:30 PM AMBULATORY - MEDICINE [facility] May 08, 2024 02:31 PM AMBULATORY - NONE [place] [facility] May 16, 2024 10:00 AM AMBULATORY - SURGERY [facility] May 16, 2024 10:01 AM [place]BUL[place]ORY [place] [facility] May 19, 2024 08:00 AM AMBULATORY - NONE [facility]YA LAI [facility] Active, Pending, and Scheduled Orders This section [...] 12:13 PM Consult Order COMMUNITY CARE-NEUROLOGY Cons [place] Demonstration Agent's Choice SONYA GAYLE [facility] Lab Results: +/- 30 days of the [...] [facility] [address] [facility] [address] Performing Lab: [facility] [address] [address] URINE [place] NOT DEFINED SPECIFIC GRAVITY 1.013 1.003-1.030 UROBILINOGEN [...] 2021 02:27 PM CURRENT SMOKER REINIER GAYLE [facility] Tobacco Use History This section includes a [...] 11:15 AM UROGRAM RETROGRADE : GALINA LOYD [id number] -1945 M Exm Date: DEC 16, 2023@11:15 Req Phys: CORBY OSORIO Pat Loc: [facility] GENERAL G2RD (Req'g Img Loc: XRAY (OOS) Service: [place] [address] (Case [id number] COMPLETE) UROGRAM RETROGRADE (RAD Detailed) CPT:99282 Contrast Media : Non-ionic Iodinated Proc Modifiers : OPERATING ROOM EXAM Reason for Study: bilat ureteroscopy laser litho, stent placement Clinical History: calculus of kidney Report Status: Verified Date Reported: DEC 16, 2023 Date Verified: DEC 16, 2023 Legal Manager E-Sig:/ES/BENJAMÍN PIMENTEL Report: UROGRAM RETROGRADE 12/16/2023 11:15 AM Impression: Fluoroscopy performed during urology service procedure. FINDINGS: Procedure performed with the C-arm fluoroscopy . Fluoroscopy time 55 seconds, dose 9 mGy Fluoroscopic images consistent with history of bilateral ureteroscopy and stent placement. Labels from bilateral [employer] Contour double-J ureteral stents placed on the scanned worksheet Please see procedure note for further details. HISTORY: bilat ureteroscopy laser litho, stent placement, Primary Diagnostic Code: NO IMMEDIATE ATTENTION REQUIRED Primary Interpreting Staff: BENJAMÍN PIMENTEL, Staff Physician (Legal Manager) /BENJAMÍN HYLTON [facility] Pathology Reports: +/- 30 [...] comes from all [place] treatment facilities. Date/Time Pathology Report Provider Source Nov 29, 2023 11:27 AM LR MICROBIOLOGY RE PORT: Reporting Lab: [facility] [CLIA# [id number]] [address] [place] [address] Accession [UID]: [id number] [[id number]] Received: Nov 30, 2023@19:53 Collection sample: URINE CLEAN CATCH Collection date: Nov 29, 2023 11:27 Site/Specimen: URINE Provider: CORBY OSORIO Test(s) ordered: CULTURE,URINE CLEAN CATCH..... completed: Dec 02, 2023 13:00 * BACTERIOLOGY FINAL REPORT => Dec 02, 2023 13:01 TECH CODE: [id number] Bacteriology Remark(s): 12/02/23 50,000-99,000 CFU/mL AT LEAST THREE BACTERIAL TYPES PRESENT INDICATING POSSIBLE CONTAMINATION, PLEASE REPEAT COLLECTION. =--=--=--=--=--=--=--=--=--=--= --=--=--=--=--=--=--=--=--=--=- -=--=--=--=--=-- Performing Laboratory: Bacteriology Report Performed By: SONYA GAYLE [facility] [CLIA# [id number]] [address] [place] [address] [facility] Encounter Notes: All associated encounter notes This section contains the clinical notes associated to the Encounter. Date/Time Encounter Note(s) Provider Source December 26, 2023 08:42 AM NONVA NOTE: LOCAL TITLE: NonVA Medical Records STANDARD TITLE: NONVA NOTE DATE OF NOTE: DECEMBER 26, 2023@08:42 ENTRY DATE: DECEMBER 28, 2023@08:42:50 AUTHOR: JENIFER SHANE EXP COSIGNER: URGENCY: STATUS: COMPLETED [address] [address] MEDICAL RECORDS DEPARTMENT ED Visit Note Discharge Plan Disposition Patient Disposition: Home Condition: Stable Discharge Details Clinical Impression: UTI (urinary tract infection), Mild dehydration Primary Care Provider: Kyra Gutierrez ED Provider: Fanta salazar Home Meds and New Rx's Prescriptions: New cephalexin 500 mg tablet 500 mg PO BID 7 Days Qty: 14 ORF Rx Instructions: Take one tablet twice daily x 7 days Discharge Instructions Instructions: Dehydration (ED), Urinary Tract Infection in Men (ED) Additional Instructions: Mild low magnesium and potassium which was given to you tonight. No new changes on Head CT. There is a small UTI noted on urinalysis. Please take the antibiotic with yogurt or probiotic twice daily for the next 7 to 10 days. Follow up with primary care provider and/or [facility] in 3-5 days. Return to ED sooner if any worsening or concerns. Increase oral fluids. Referrals: [facility] [Outside] - 5 days General Mode of arrival: wheelchair. Date/Time Provider Initiated Documentation: 12/26/23 21:52. Limitations to Documentation: no limitations. Information obtained by: patient, RN notes reviewed and old records reviewed . HPI Narrative: 78 year old male presents to the ED with report of dizziness and decreased PO intake. Per patient he has been drinking water and tea ok, Hx of prostate cancer and recent stent removal for a kidney stone. He denies headache, he has no focal neuro deficits no leg drop, procurement manager equal bilateral, he does close his right eye which he reports has been ongoing since September which he doesn't realize he Is doing that. He reports his noticed he was wobbly on his feet and wanted me checked out. Past medical history includes CVA, seizure lymphoma prostate cancer and hypertension, history of craniotomy. He does see urology at [facility]. Exam Narrative: Constitutional: Alert and oriented x3. Appears stated age. Very thin body habitus. Head: Normocephalic, no trauma. Eyes: Pupils PERRL, Red reflex noted, EOM's intact. Eyelids symmetrical without lesions, discharge, or swelling. ENT: Bilateral TM's WNL, External ear normal to inspection, no mastoid TIP, swelling, or erythema, Nasal turbinates WNL, no nasal discharge. Poor dentition, Posterior pharynx WNL, no exudate. Chest: RRR, Normal Si, S2, distal pulses intact. Resp: Lungs clear to auscultation bilaterally, no wheezes, rales, or rhonchi. Abdomen: Soft, non-distended, Normoactive bowel sounds all 4 quads. Musculoskeletal: Unable to assess gait, per medical staffing coordinator, c/o dizziness with transfer from Wheelchair to stretcher, Skin: No suspicious rashes or lesions. Capillary refill less than 2 sec. Neurologic: Cranial nerves II-XII Intact. Alert and oriented x 3. Motor: No deficits noted. Sensory: Intact bilaterally all 4 extremities. No leg drop, intact dorsal flexion and pedal flexion, no facial droop. Hematologic/Lymphatic: No ecchymosis, no lymphadenopathy. LABS WBC 9.25 RBC 4.14 HGB 12.6 HCT 38.1 NA 138 K 3.3 CHLO 101 C02 30.5 BUN 12 CREAT 1.2 MAG 1.7 CALCIUM 8.7 UA PH 6.0 BLOOD LARGE AMOUNT PROTEIN 30 WBC >50 RBC 20-50 CULTURED Imaging Data Radiologic Study: Imaging: CT Scan Radiologist's impression: TECHNIQUE: Imaging protocol: Computed tomography of the head without contrast. Radiation optimization: All CT scans at this facility use at least one of these dose optimization techniques: automated exposure control; mA and/or kV adjustment per patient size (includes targeted exams where dose is matched to clinical indication); or iterative reconstruction. COMPARISON: CT HEAD CERVICAL SPINE WO 2022 2:21 AM FINDINGS: Brain: Encephalomalacia in the right frontal lobe.There are moderate periventricular and subcortical lucencies consistent with chronic microvascular ischemic changes. Cerebral ventricles: No ventriculomegaIy. Paranasal sinuses: Visualized sinuses are unremarkable. No fluid levels. Mastoid air cells: Visualized mastoid air cells are well aerated. Orbital cavities: Bilateral cataract surgery. Bones: Unremarkable. No acute fracture. Soft tissues: Unremarkable. IMPRESSION: No acute intracranial abnormality. Chronic microvascular ischemic changes. /vivian/ JENIFER SHANE LPN Signed: 12/28/2023 08:50 Receipt Acknowledged By: 12/28/2023 16:23 /vivian/ KYRA GUTIERREZ M.D INTERNAL MEDICINE, [facility] [employer] 01/12/2024 08:30 /vivian/ EFRAÍN VALIENTE for JENIFER HAAS [facility]
--- OUTSIDE RECORDS SUMMARY | 2024-05-24 19:21 | XMS_ITS ---
VA ANESTHESIA PRE/POST-OP CONSULT SONYA GAYLE [facility] Encounter Summary Created on: May 24, 2024 GALINA LOYDEN : 1945 Sex: Male Author Name [place] Address [address] [place] [address] Care Team Providers Care Drafter Plumbing Name Role Phone KYRA VELASQUEZ Primary Care [...] Ervin's Name Patient's Relationship to Policy Ervin [facility] (WNR) MEDICARE [facility](W NR) * Aug 23, 2023 [id number] ANNALISA LOYD ITE PATIENT [facility] (WNR) MEDICARE ADVANTAGE [facility] (WNR) Aug 23, 2020 [id number] [phone] ANNALISA LOYD ITE PATIENT [facility] (WNR) MEDICARE [facility](W NR) Aug 23, 2012 [id number] ANNALISA LOYD ITE PATIENT Selected Encounter This section includes the information on record at [place] for the Encounter. Date/Time Encounter Type Encounter Description Reason Provider Source Dec 16, 2023 11:00 AM Outpatient Encounter ANESTHESIA PRE/POST-OP CONSULT WARREN TELLEZ IC IHE Encounter Template Text not used by [place] Plan of Treatment: Future Appointments (+ 6 months) and Future Tests (+/- 45 days) The Plan of Treatment section includes future care activities for the patient from all [place] [facility]. This section includes future appointments and [...] PM AMBULATORY - [place] [facility] Feb 21, 2024 10:15 AM AMBULATORY - NONE [place] [facility] Feb 21, 2024 11:00 AM AMBULATORY - NONE [place] [facility] Mar 18, 2024 12:01 AM AMBULATORY - NONE [place] [facility] Apr 06, 2024 01:00 PM AMBULATORY - NONE [place] [facility] Apr 06, 2024 01:00 PM AMBULATORY - MEDICINE [facility] Apr 10, 2024 01:30 PM AMBULATORY - MEDICINE [facility] Apr 10, 2024 01:31 PM AMBULATORY - NONE [place] [facility] Apr 11, 2024 10:00 AM AMBULATORY - SURGERY [facility] Apr 11, 2024 10:01 AM AMBULATORY - SURGERY [place] [facility] Apr 21, 2024 10:30 AM AMBULATORY - NONE [place] [facility] May 03, 2024 02:30 PM AMBULATORY - SURGERY [place] [facility] May 04, 2024 10:30 AM [place] [facility] May 04, 2024 11:00 AM AMBULATORY - SURGERY [place] [facility] May 04, 2024 12:30 PM AMBULATORY - NONE [place] [facility] May 04, 2024 01:00 PM AMBULATORY - SURGERY [place] [facility] May 08, 2024 02:30 PM AMBULATORY - MEDICINE [facility] May 08, 2024 02:31 PM AMBULATORY - NONE [place] [facility] May 16, 2024 10:00 AM AMBULATORY - SURGERY [facility] May 16, 2024 10:01 AM AMBULATORY - SURGERY [facility] [...] 12:13 PM Consult Order COMMUNITY CARE-NEUROLOGY Cons Court Security Officer's Choice [facility] Lab Results: +/- 30 days of [...] Nov 24, 2023 05:48 PM Reporting Lab: [facility] [address] [address] Performing Lab: [facility] [address] [address] URINE COLOR [place] NOT DEFINED SPECIFIC GRAVITY 1.013 1.003-1.030 UROBILINOGEN [...] 136/84 20 96 0 69 122.3 18 [facility] Social History: Smoking Status (Most current) [...] 2021 02:27 PM CURRENT SMOKER REINIER Bhatia [facility] Tobacco Use History This section includes [...] 2021 02:41 PM CURRENT SMOKER REINIER Bhatia [facility] Dec 08, 2020 08:45 PM VA-TOBACCO [...] Nov 18, 2017 ADVANCE DIRECTIVE RADHA FERNANDEZ [facility] Jul 08, 2017 ADVANCE [...] 11:15 AM UROGRAM RETROGRADE : GALINA LOYD [id number] -1945 M Exm Date: DEC 16, 2023@11:15 Req Phys: CORBY OSORIO QUIÑONES Pat Loc: [facility] GENERAL G2RD (Req'g Img Loc: XRAY (OOS) Service: Unknown [facility] [place] [address] (Case [id number] COMPLETE) UROGRAM RETROGRADE (RAD Detailed) CPT:77928 Contrast Media : Non-ionic Iodinated Proc Modifiers : OPERATING ROOM EXAM Reason for Study: bilat ureteroscopy laser litho, stent placement Clinical History: calculus of kidney Report Status: Verified Date Reported: DEC 16, 2023 Date Verified: DEC 16, 2023 Marine Electrician Apprentice E-Sig:/PARIS/BENJAMÍN PIMENTEL Report: UROGRAM RETROGRADE 12/16/2023 11:15 AM Impression: Fluoroscopy performed during urology service procedure. FINDINGS: Procedure performed with the C-arm fluoroscopy . Fluoroscopy time 55 seconds, dose 9 mGy Fluoroscopic images consistent with history of bilateral ureteroscopy and stent placement. Labels from bilateral [employer] Contour double-J ureteral stents placed on the scanned worksheet Please see procedure note for further details. HISTORY: bilat ureteroscopy laser litho, stent placement, Primary Diagnostic Code: NO IMMEDIATE ATTENTION REQUIRED Primary Interpreting Staff: BENJAMÍN PIMENTEL, Staff Physician (Marine Electrician Apprentice) /BENJAMÍN HYLTON [facility] Pathology Reports: +/- 30 days of the [...] comes from all [place] treatment facilities. Date/Time Pathology Report Provider Source Nov 29, 2023 11:27 AM LR MICROBIOLOGY RE PORT: Reporting Lab: [facility]ON[facility] [CLIA# [id number]] [address] [place] [address] Accession [UID]: [id number] [[id number]] Received: Nov 30, 2023@19:53 Collection sample: URINE CLEAN CATCH Collection date: Nov 29, 2023 11:27 Site/Specimen: URINE Provider: CORBY OSORIO Test(s) ordered: CULTURE,URINE CLEAN CATCH..... completed: Dec 02, 2023 13:00 * BACTERIOLOGY FINAL REPORT => Dec 02, 2023 13:01 TECH CODE: [id number] Bacteriology Remark(s): 12/02/23 50,000-99,000 CFU/mL AT LEAST THREE BACTERIAL TYPES PRESENT INDICATING POSSIBLE CONTAMINATION, PLEASE REPEAT COLLECTION. =--=--=--=--=--=--=--=--=--=--= --=--=--=--=--=--=--=--=--=--=- -=--=--=--=--=-- Performing Laboratory: Bacteriology Report Performed By: SONYA PIN[facility] [CLIA# [id number]] [address] [facility] [place] [address] [facility]
--- OUTSIDE RECORDS SUMMARY | 2024-05-24 19:21 | XMS_ITS | Encounter Summary ---
Author Name [facility] [place] Organization [place] Address [address] [place] [address] Care Team Providers Care Network Systems Analyst Name Role Phone RON KYRA Primary [...] Policy Ervin [facility] (WNR) MEDICARE ADVANTAGE [facility](W NR) * Aug 23, 2023 [id number] ANNALISA LOYD ITE PATIENT [facility] MCR (WNR) MEDICARE ADVANTAGE [facility] (WNR) Aug 23, 2020 [id number] [phone] ANNALISA LOYD ITE PATIENT [facility] (WNR) MEDICARE ADVANTAGE [facility](W NR) Aug 23, 2012 [id number] ANNALISA LOYD ITE PATIENT Selected Encounter This section includes the information on record at [place] for the Encounter. Date/Time Encounter Type Encounter Description Reason Pro vider Source December 26, 2023 09:46 AM Outpatient Encounter COMMUNITY CARE CONSULT IHE Encounter Template Text not used by VA Plan of Treatment: Future Appointments (+ 6 months) and Future Tests (+/- 45 days) The Plan of Treatment section includes future care activities for the patient from all [place] [facility]. This section includes future appointments and future orders which are active, pending or scheduled. Future Appointments This section includes appointments that were scheduled to occur 6 months from the date of the Encounter, up to a maximum of 20 appointments. The data comes from all [place] treatment facilities. Appointment Date/Time Appointment Type Appointme nt Facility Name Feb 21, 2024 10:15 AM AM[place]ULATORY - [place]ONE [place] [facility] Feb 21, 2024 11:00 AM AMBULATORY - NONE [place] [facility] Mar 18, 2024 12:01 AM AMBULATORY - NONE [place] [facility] Apr 06, 2024 01:00 PM AMBULATORY - NONE [place] [facility] Apr 06, 2024 01:00 PM AMBULATORY - MEDICINE [facility] Apr 10, 2024 01:30 PM AMBULATORY - MEDICINE [facility] Apr 10, 2024 01:31 PM AMBULATORY - NONE [place] [facility] Apr 11, 2024 10:00 AM AMBULATORY - SURGERY [facility] Apr 11, 2024 10:01 AM AMBULATORY - SURGERY [place] [facility] Apr 21, 2024 10:30 AM AMBULATORY - NONE [place] [facility] May 03, 2024 02:30 PM AMBULATORY - SURGERY [place] [facility] May 04, 2024 10:30 AM [place]UL[place]IC[place] [facility] May 04, 2024 11:00 AM AMBULATORY - SURGERY [place] [facility] May 04, 2024 12:30 PM AMBULATORY - NONE [place] [facility] May 04, 2024 01:00 PM AMBULATORY - SURGERY [place] [facility] May 08, 2024 02:30 PM AMBULATORY - MEDICINE [facility] May 08, 2024 02:31 PM AMBULATORY - NONE [place] [facility] May 16, 2024 10:00 AM AMBULATORY - SURGERY [facility] May 16, 2024 10:01 AM AMBULATORY - SURGERY [place] [facility] May 19, 2024 08:00 AM AMBULATORY - NONE [place] [facility] Active, Pending, and Scheduled Orders This section includes a listing of several types of active, pending, and scheduled orders, including clinic medications orders, diagnostic test orders, procedure orders and consult orders; where the start date of the order is 45 days before the date of the Encounter or 45 days after the date of theEncounter. The data comes from all [place] treatment facilities. Test Date/Time Test Type Test Details Facility Name January 18, 2024 12:13 PM Consult Order COMMUNITY CARE-NEUROLOGY Cons Staff Research Scientist's Choice SONYA GAYLE [facility] Lab Results: +/- 30 days of the encounter This section includes the Chemistry and Hematology Lab Results on record with [place] for the patient. Radiology Reports and Pathology [...] PM Reporting Lab: [facility] [address] [facility] [address] Performing Lab: [facility] [address] [facility] [address] URINE COLOR Light[place] NOT DEFINED SPECIFIC GRAVITY 1.013 1.003-1.030 UROBILINOGEN [...] and tobacco- related health factors from the [place] facility where the Encounter took place. Current Smoking Status This section includes the most current smoking, or tobacco-related health factor, from the [place] facility where the Encounter took place. Date/Time Current Smoking Status Comment Nataly ity Jul 17, 2021 02:27 PM CURRENT SMOKER REINIER GAYLE [facility] Tobacco Use History This section includes a history of the smoking, or tobacco-related health factors, that were collected on or before the date of the Encounter. The data comes from the [place] facility where the Encounter took place. Date/Time [...] ALL of a patient's completed or amended [place] Advance and Rescinded Directives. The entries below indicate that a directive exists for the patient, but an actual copy is not included with this document. The data comes from all [place] facilities. Date Advance Directives Provider Source Nov 18, 2017 ADVANCE DIRECTIVE RADHA FERNANDEZ [facility] Jul 08, 2017 ADVANCE DIRECTIVE [...] the Encounter. The data comes from all [place] treatment facilities. Date/Time Radiology Report Provider Source Dec 16, 2023 11:15 AM UROGRAM RETROGRADE : GALINA LOYD [id number] -1945 M Exm Date: DEC 16, 2023@11:15 Req Phys: CORBY OSORIO Pat Loc: [facility] GENERAL G2RD (Req'g Img Loc: XRAY (OOS) Service: [place] [place] [address] (Case [id number] COMPLETE) UROGRAM RETROGRADE (RAD Detailed) CPT:27817 Contrast Media : Non-ionic Iodinated Proc Modifiers : OPERATING ROOM EXAM Reason for Study: bilat ureteroscopy laser litho, stent placement Clinical History: calculus of kidney Report Status: Verified Date Reported: DEC 16, 2023 Date Verified: DEC 16, 2023 Internist E-Sig:/ES/BENJAMÍN PIMENTEL Report: UROGRAM RETROGRADE 12/16/2023 11:15 AM Impression: Fluoroscopy performed during urology service procedure. FINDINGS: Procedure performed with the C-arm fluoroscopy . Fluoroscopy time 55 seconds, dose 9 mGy Fluoroscopic images consistent with history of bilateral ureteroscopy and stent placement. Labels from bilateral [employer] Contour double-J ureteral stents placed on the scanned worksheet Please see procedure note for further details. HISTORY: bilat ureteroscopy laser litho, stent placement, Primary Diagnostic Code: NO IMMEDIATE ATTENTION REQUIRED Primary Interpreting Staff: BENJAMÍN PIMENTEL, Staff Physician (Internist) /BENJAMÍN HYLTON [facility] Pathology [...] the Encounter. The data comes from all [place] treatment facilities. Date/Time Pathology Report Provider Source Nov 29, 2023 11:27 AM LR MICROBIOLOGY RE PORT: Reporting Lab: [facility] [CLIA# [id number]] [address] [place] [address] Accession [UID]: [id number] [[id number]] Received: Nov 30, 2023@19:53 Collection sample: URINE CLEAN CATCH Collection date: Nov 29, 2023 11:27 Site/Specimen: URINE Provider: CORBY OSORIO Test(s) ordered: CULTURE,URINE CLEAN CATCH..... completed: Dec 02, 2023 13:00 * BACTERIOLOGY FINAL REPORT => Dec 02, 2023 13:01 TECH CODE: [id number] Bacteriology Remark(s): 12/02/23 50,000-99,000 CFU/mL AT LEAST THREE BACTERIAL TYPES PRESENT INDICATING POSSIBLE CONTAMINATION, PLEASE REPEAT COLLECTION. =--=--=--=--=--=--=--=--=--=--= --=--=--=--=--=--=--=--=--=--=- -=--=--=--=--=-- Performing Laboratory: Bacteriology Report Performed By: [facility] [CLIA# [id number]] [address] [place] [address] [facility] Encounter Notes: All associated encounter notes This section contains the clinical notes associated to the Encounter. Date/Time Encounter Note(s) Provider Source December 26, 2023 09:46 AM NONVA NOTE: LOCAL TITLE: COMMUNITY CARE-RAFAEL SELF PRESENTING CARE COORD PLAN STANDARD TITLE: NONVA NOTE DATE OF NOTE: DECEMBER 26, 2023@09:46 ENTRY DATE: DECEMBER 28, 2023@09:46:13 AUTHOR: PILAR LOCKHART EXP COSIGNER: URGENCY: STATUS: COMPLETED COMMUNITY CARE-RAFAEL SELF PRESENTING CARE COORD PLAN NOTE Has ADDENDA Emergency Notification Intake Date Presenting to the Facility: December Method of Contact: Notified from ECR worklist Notification ID: [id number] [facility] Referral #: [facility] Name: Hospital: [facility] Address: City: [facility] State: [place] Zip Code: [address] Phone : [facility] Point of Contact: Name: Phone: Chief complaint: UTI Primary Diagnosis: Disposition Unknown at time of intake note entry Records have been scanned into CPRS with PCP sign off. /es/ PILAR TOBAR, RN EMERGENCY PATTERNMAKER SAMPLE Signed: 12/28/2023 09:47 01/05/2024 ADDENDUM STATUS: COMPLETED Notification ID # [id number] EOC approved under 1703 by the National ER Notification Team [employer] Referral # [id number] /vivian/ ADITI SANCHEZ Signed: 01/05/2024 06:25 PILAR LOCKHART [facility]
--- OUTSIDE RECORDS SUMMARY | 2024-05-24 19:21 | XMS_ITS ---
Author Name [place] Address [address] [place] [address] Care Team Providers Care Snake Charmer Name Role Phone KYRA VELASQUEZ Primary Care [...] Relationship to Policy Ervin [facility] (WNR) MEDICARE ADVANTAGE [facility](W NR) * Aug 23, 2023 [id number] [phone] ANNALISA LOYD ITE PATIENT [facility] (WNR) MEDICARE [facility] (WNR) Aug 23, 2020 [id number] [phone] ANNALISA LOYD ITE PATIENT [facility] (WNR) MEDICARE ADVANTAGE [facility](W NR) Aug 23, 2012 [id number] ANNALISA LOYD ITE PATIENT Selected Encounter This section includes the information on record at [place] for the Encounter. Date/Time Encounter Type Encounter Description Reason Pro vider Source December 30, 2023 11:05 AM Outpatient Encounter ADMIN PAT ACTIVTIES (MASNONCT) IHE Encounter Template Text not used by [place] Plan of Treatment: Future Appointments (+ 6 months) and Future Tests (+/- 45 days) The Plan of Treatment section includes future care activities for the patient from all [place] treatmentfacilities. This section includes future appointments and future orders which are active, pending or scheduled. Future Appointments This section includes appointments that were scheduled to occur 6 months from the date of the Encounter, up to a maximum of 20 appointments. The data comes from all [place] treatment facilities. Appointment Date/Time Appointment Type Appointme nt Facility Name Feb 21, 2024 10:15 AM AMBULATORY - NONE [place] [facility] Feb 21, 2024 11:00 AM AMBULATORY - NONE [place] [facility] Mar 18, 2024 12:01 AM AMBULATORY - NONE [place] [facility] Apr 06, 2024 01:00 PM AMBULATORY - NONE [place] [facility] Apr 06, 2024 01:00 PM AMBULATORY - MEDICINE [facility] Apr 10, 2024 01:30 PM AMBULATORY - MEDICINE [facility] Apr 10, 2024 01:31 PM AMBULATORY - NONE [place] [facility] Apr 11, 2024 10:00 AM AMBULATORY - SURGERY [facility] Apr 11, 2024 10:01 AM AMBULATORY - SURGERY [place] [facility] Apr 21, 2024 10:30 AM AMBULATORY - NONE [place] [facility] May 03, 2024 02:30 PM AMBULATORY - SURGERY [place] [facility] May 04, 2024 10:30 AM AMBULATORY [place]IC[place] [facility] May 04, 2024 11:00 AM AMBULATORY - SURGERY [place] [facility] May 04, 2024 12:30 PM AMBULATORY - NONE [place] [facility] May 04, 2024 01:00 PM AMBULATORY - SURGERY [place] [facility] May 08, 2024 02:30 PM AMBULATORY - MEDICINE [facility] May 08, 2024 02:31 PM AMBULATORY - NONE [place] [facility] May 16, 2024 10:00 AM AMBULATORY - SURGERY [facility] May 16, 2024 10:01 AM AMBULATORY - SURGERY [place] [facility] May 19, 2024 08:00 AM AMBULATORY - NONE SONYA LAI [facility] Active, Pending, and Scheduled Orders This section includes a listing of several types of active, pending, and scheduled orders, including clinic medications orders, diagnostic test orders, procedure orders and consult orders; where the start date of the order is 45 days before the date of the Encounter or 45 days after the date of theEncounter. The data comes from all [place] treatment facilities. Test Date/Time Test Type Test Details Facility Name January 18, 2024 12:13 PM Consult Order COMMUNITY CARE-NEUROLOGY Cons Plaster Block Layer's Choice [facility] Social History: Smoking Status (Most current) and Tobacco Use (All prior to encounter date) This section includes the most current, and the historical, smoking and tobacco- related health factors from the [place] facility where the Encounter took place. Current Smoking Status This section includes the most current smoking, or tobacco-related health factor, from the [place] facility where the Encounter took place. Date/Time Current Smoking Status Comment Facil ity Jul 17, 2021 02:27 PM CURRENT SMOKER REINIER GAYLE [facility] Tobacco Use History This section includes a history of the smoking, or tobacco-related health factors, that were collected on or before the date of the Encounter. The data comes from the [place] facility where the Encounter took place. Date/Time Smoking Status/Tobacco Use Comment F acility Jul 01, 2021 08:55 PM VA-VAAES TOBACCO U SE CURRENT NRT DECLINE [facility] Jul 01, 2021 02:41 PM CURRENT SMOKER REINIER GAYLE [facility] Dec 08, 2020 08:45 PM [...] this document. The data comes from all [place] facilities. Date Advance Directives Provider Source Nov [...] the Encounter. The data comes from all [place] treatment facilities. Date/Time Radiology Report Provider Source Dec 16, 2023 11:15 AM UROGRAM RETROGRADE : GALINA LOYDEN [id number] -1945 M Exm Date: DEC 16, 2023@11:15 Req Phys: CORBY OSORIO Pat Loc: [facility] GENER[facility] G2RD (Req'g Img Loc: XRAY (OOS) Service: [place] [address] (Case [id number] COMPLETE) UROGRAM RETROGRADE (RAD Detailed) CPT:29469 Contrast Media : Non-ionic Iodinated Proc Modifiers : OPERATING ROOM EXAM Reason for Study: bilat ureteroscopy laser litho, stent placement Clinical History: calculus of kidney Report Status: Verified Date Reported: DEC 16, 2023 Date Verified: DEC 16, 2023 Grease Refiner Operator E-Sig:/ES/BENJAMÍN PIMENTEL Report: UROGRAM RETROGRADE 12/16/2023 11:15 AM Impression: Fluoroscopy performed during urology service procedure. FINDINGS: Procedure performed with the C-arm fluoroscopy . Fluoroscopy time 55 seconds, dose 9 mGy Fluoroscopic images consistent with history of bilateral ureteroscopy and stent placement. Labels from bilateral [employer] Contour double-J ureteral stents placed on the scanned worksheet Please see procedure note for further details. HISTORY: bilat ureteroscopy laser litho, stent placement, Primary Diagnostic Code: NO IMMEDIATE ATTENTION REQUIRED Primary Interpreting Staff: BENJAMÍN PIMENTEL, Staff Physician (Grease Refiner Operator) /BENJAMÍN HYLTON [facility] Encounter Notes: All associated encounter notes This section contains the clinical notes associated to the Encounter. Date/Time Encounter Note(s) Provider Source December 30, 2023 11:05 AM ADMINISTRATIVE NOT E: LOCAL TITLE: CCC: SCHEDULING ADMINISTRATION STANDARD TITLE: ADMINISTRATIVE NOTE DATE OF NOTE: DECEMBER 30, 2023@11:05:35 ENTRY DATE: DECEMBER 30, 2023@11:05:35 AUTHOR: FELIPE ABAD COSIGNER: URGENCY: STATUS: COMPLETED CCC: SCHEDULING ADMINISTRATION Has ADDENDA Patient Demographics Patient Name: GALINA LOYD Patient Primary Phone: [phone] Patient Primary Address: [address] [place] [address] Patient : 1945 Patient Age: 78 Caller/Recipient Relation to Patient: Self Administrative Administrative Note Reason: Medication Renewal [facility] Medications Refill/Renewal Request: Rx #[id number] - DRESS,MEPILEX BORDER FLEX 4X4IN #[id number] Spouse states that she is using 3 + of them due to redness of the tailbone. Does not want it to get worse so has been adding extra padding. requesting earlier then 01/2024. Spouse would like call back to discuss and denies ccc triage at time of call. /vivian/ FELIPE ABAD V1 [facility] Signed: 12/30/2023 11:05 Receipt Acknowledged By: 12/30/2023 16:14 /vivian/ KYRA VELASQUEZ M.D INTERNAL MEDICINE, [facility] 01/03/2024 09:57 /es/ OJ GIL RN 12/30/2023 ADDENDUM STATUS: COMPLETED new rx for mepilex placed with increased dosing from twice weekly to q36 hours /vivian/ KYRA VELASQUEZ M.D INTERNAL MEDICINE, [facility] Signed: 12/30/2023 16:15 FELIPE ABAD [facility]
--- OUTSIDE RECORDS SUMMARY | 2024-05-24 19:21 | XMS_ITS | Encounter Summary ---
Author Name Department [place] Organization [place] Address [address] [place] [address] Care Team Providers Care Assembler Name Role Phone KYRA VELASQUEZ Primary [...] Name Patient's Relationship to Policy Ervin [facility] (WNR) MEDICARE ADVANTAGE MCR(W NR) * Aug 23, 2023 [id number] ANNALISA LOYD ITE PATIENT [facility] (WNR) MEDICARE [facility] (WNR) Aug 23, 2020 [id number] ANNALISA LOYD ITE PATIENT [facility] (WNR) MEDICARE ADVANTAGE MCR(W NR) Aug 23, 2012 [id number] ANNALISA LOYD ITE PATIENT Selected Encounter This section includes the information on record at [place] for the Encounter. Date/Time Encounter Type Encounter Description Reason Pro vider Source December 28, 2023 02:38 PM Outpatient Encounter ADMIN PAT ACTIVTIES (MASNONCT) [...] [place] [facility] May 04, 2024 01:00 PM [place] [facility] May 08, 2024 02:30 PM AMBULATORY - MEDICINE [facility] May 08, 2024 02:31 PM AMBULATORY - NONE [place] [facility] May 16, 2024 10:00 AM AMBULATORY - SURGERY [facility] May 16, 2024 10:01 AM [place] [facility] May 19, 2024 08:00 AM AMBULATORY - NONE [facility] Active, Pending, and Scheduled Orders This section includes a listing of several types of active, pending, and scheduled orders, including clinic medications orders, diagnostic test orders, procedure orders and consult orders; where the start date of the order is 45 days before the date of the Encounter or 45 days after the date of theEncounter. The data comes from all [place] treatment facilities. Test Date/Time Test Type Test Details Facility Name January 18, 2024 12:13 PM Consult Order [facility]UROLOG[facility] Cons Director Of Quality Improvement's Choice [facility] Lab Results: +/- 30 days of the encounter This section includes the Chemistry and Hematology Lab Results on record with [place] for the patient. Radiology Reports and Pathology [...] Nov 24, 2023 05:48 PM Reporting Lab: [facility] [address] [facility] [address] Performing Lab: [facility] [address] [facility] [address] URINE COLOR [place] NOT DEFINED SPECIFIC GRAVITY 1.013 1.003-1.030 UROBILINOGEN [...] CURRENT SMOKER REINIER GAYLE [facility] Tobacco Use History This section includes a [...] CURRENT SMOKER REINIER GAYLE [facility] Dec 08, 2020 08:45 PM VA-TOBACCO USER [...] this document. The data comes from all [facility]. Date Advance Directives Provider Source Nov 18, 2017 ADVANCE DIRECTIVE RADHA FERNANDEZ [facility] Jul 08, 2017 ADVANCE [...] 11:15 AM UROGRAM RETROGRADE : GALINA LOYD [id number] -1945 M Exm Date: DEC 16, 2023@11:15 Req Phys: CORBY OSORIO Pat Loc: [facility] GENERAL G2RD (Req'g Img Loc: XRAY (OOS) Service: [place] [address] (Case [id number] COMPLETE) UROGRAM RETROGRADE (RAD Detailed) CPT:44637 Contrast Media : Non-ionic Iodinated Proc Modifiers : OPERATING ROOM EXAM Reason for Study: bilat ureteroscopy laser litho, stent placement Clinical History: calculus of kidney Report Status: Verified Date Reported: DEC 16, 2023 Date Verified: DEC 16, 2023 Historical Guide E-Sig:/ES/BENJAMÍN PIMENTEL Report: UROGRAM RETROGRADE 12/16/2023 11:15 AM Impression: Fluoroscopy performed during urology service procedure. FINDINGS: Procedure performed with the C-arm fluoroscopy . Fluoroscopy time 55 seconds, dose 9 mGy Fluoroscopic images consistent with history of bilateral ureteroscopy and stent placement. Labels from bilateral [employer] Contour double-J ureteral stents placed on the scanned worksheet Please see procedure note for further details. HISTORY: bilat ureteroscopy laser litho, stent placement, Primary Diagnostic Code: NO IMMEDIATE ATTENTION REQUIRED Primary Interpreting Staff: BENJAMÍN PIMENTEL, Staff Physician (Historical Guide) /BENJAMÍN HYLTON [facility] Pathology Reports: +/- 30 days [...] comes from all [place] treatment facilities. Date/Time Pathology Report Provider Source Nov 29, 2023 11:27 AM LR MICROBIOLOGY RE PORT: Reporting Lab: [facility] [CLIA# [id number]] [address] [place] [address] Accession [UID]: [id number] [[id number]] Received: Nov 30, 2023@19:53 Collection sample: URINE CLEAN CATCH Collection date: Nov 29, 2023 11:27 Site/Specimen: URINE Provider: CORBY OSORIO Test(s) ordered: CULTURE,URINE CLEAN CATCH..... completed: Dec 02, 2023 13:00 * BACTERIOLOGY FINAL REPORT => Dec 02, 2023 13:01 TECH CODE: [id number] Bacteriology Remark(s): 12/02/23 50,000-99,000 CFU/mL AT LEAST THREE BACTERIAL TYPES PRESENT INDICATING POSSIBLE CONTAMINATION, PLEASE REPEAT COLLECTION. =--=--=--=--=--=--=--=--=--=--= --=--=--=--=--=--=--=--=--=--=- -=--=--=--=--=-- Performing Laboratory: Bacteriology Report Performed By: SONYA PINON [facility] [CLIA# [id number]] [address] [place] [address] [facility] Encounter Notes: All associated encounter notes This section contains the clinical notes associated to the Encounter. Date/Time Encounter Note(s) Provider Source December 28, 2023 02:38 PM ADMINISTRATIVE NOT E: LOCAL TITLE: Has Admin Note STANDARD TITLE: ADMINISTRATIVE NOTE DATE OF NOTE: DECEMBER 28, 2023@14:38 ENTRY DATE: DECEMBER 28, 2023@14:38:11 AUTHOR: CRESENCIO HOLLINS EXP COSIGNER: URGENCY: STATUS: COMPLETED Reason for call Clinic Name:[facility] MD RTC- PID 03/01/24 Clinic CXL/Reschedule- clinic cxd 03/01/24 appt 1st call, Letter sent (clinic cxd ltr mailed) /vivian/ CRESENCIO HOLLINS LEAD UNIX ANALYST Signed: 12/28/2023 14:38 CRESENCIO HOLLINS [facility]
--- OUTSIDE RECORDS SUMMARY | 2024-05-24 19:21 | XMS_ITS ---
VA ANESTHESIA PRE/POST-OP CONSULT [facility]ONYA [facility]LE [facility] Encounter Summary Created on: May 24, 2024 GALINA LOYD : 1945 Sex: Male Author Name Department [place] Organization [place] Address [address] [place] [address] Care Team Providers Care Commissioned Police Officer Name Role Phone KYRA VELASQUEZ Primary Care [...] Policy Ervin [facility] (WNR) MEDICARE [facility](W NR) * Aug 23, 2023 [id number] ANNALISA LOYD ITE PATIENT [facility] (WNR) MEDICARE ADVANTAGE [facility] (WNR) Aug 23, 2020 [id number] [phone] ANNALISA LOYD ITE PATIENT [facility] (WNR) MEDICARE [facility](W NR) Aug 23, 2012 [id number] [phone] ANNALISA LOYD ITE PATIENT Selected Encounter This section includes the information on record at [place] for the Encounter. Date/Time Encounter Type Encounter Description Reason Pro vider Source Dec 16, 2023 10:59 AM Outpatient Encounter ANESTHESIA PRE/POST-OP CONSULT MELISSA JAVIER Encounter Template Text not used by [place] Plan of Treatment: Future Appointments (+ 6 months) and Future Tests (+/- 45 days) The Plan of Treatment section includes future care activities for the patient [facility] [place] [facility] This section includes future appointments and [...] PM AMBULATORY [place] [facility] Feb 21, 2024 10:15 AM AMBULATORY - NONE [place] [facility] Feb 21, 2024 11:00 AM AMBULATORY - NONE [place] [facility] Mar 18, 2024 12:01 AM AMBULATORY - NONE [place] [facility] Apr 06, 2024 01:00 PM AMBULATORY - NONE [place] [facility] Apr 06, 2024 01:00 PM AMBULATORY - MEDICINE [facility] Apr 10, 2024 01:30 PM AMBULATORY - MEDICINE [facility] Apr 10, 2024 01:31 PM AMBULATORY - NONE [place] [facility] Apr 11, 2024 10:00 AM AMBULATORY - SURGERY [facility] Apr 11, 2024 10:01 AM AMBULATORY [place] [facility] Apr 21, 2024 10:30 AM AMBULATORY - NONE [place] [facility] May 03, 2024 02:30 PM [place]UL[place]ORY [place] [facility] May 04, 2024 10:30 AM [place] [facility] May 04, 2024 11:00 AM AMBULATORY [place]GERY [place] [facility] May 04, 2024 12:30 PM AMBULATORY - NONE [place] [facility] May 04, 2024 01:00 PM AMBULATORY [place] [facility] May 08, 2024 02:30 PM AMBULATORY - MEDICINE [facility] May 08, 2024 02:31 PM AMBULATORY - NONE [place] [facility] May 16, 2024 10:00 AM AMBULATORY - SURGERY [facility] May 16, 2024 10:01 AM AMBULATORY - SURGERY [facility] Active, Pending, and Scheduled Orders [...] January 18, 2024 12:13 PM Consult Order COUNTS INCLUDE 234 BEDS AT THE [facility]-NEUROLOG[facility] Cons Security Analyst's Choice [facility] Lab Results: +/- 30 [...] Range Comment Nov 29, 2023 11:27 AM [facility] URINALYSIS W/REFLEX TO CULTURE Specimen Type: URINE No comment entered. Ordering Provider: MIRIAN OSORIO CH Report Released Date/Time: Nov 24, 2023 05:48 PM Reporting Lab: [facility] [address] [facility] [address] Performing Lab: [facility] [address] [facility] [address] URINE COLOR [place] NOT DEFINED SPECIFIC GRAVITY 1.013 1.003-1.030 UROBILINOGEN [...] 136/84 20 96 0 69 122.3 18 [facility] Social History: Smoking Status (Most [...] 2021 02:27 PM CURRENT SMOKER REINIER GAYLE [facility] Tobacco Use History This section [...] 11:15 AM UROGRAM RETROGRADE : GALINA LOYD [id number] -1945 M Exm Date: DEC 16, 2023@11:15 Req Phys: CORBY OSORIO Pat Loc: [facility] GENERAL G2RD (Req'g Img Loc: XRAY (OOS) Service: [place] [facility] [place] [address] (Case [id number] COMPLETE) UROGRAM RETROGRADE (RAD Detailed) CPT:46592 Contrast Media : Non-ionic Iodinated Proc Modifiers : OPERATING ROOM EXAM Reason for Study: bilat ureteroscopy laser litho, stent placement Clinical History: calculus of kidney Report Status: Verified Date Reported: DEC 16, 2023 Date Verified: DEC 16, 2023 [place] E-Sig:/PARIS/BENJAMÍN PIMENTEL Report: UROGRAM RETROGRADE 12/16/2023 11:15 AM Impression: Fluoroscopy performed during urology service procedure. FINDINGS: Procedure performed with the C-arm fluoroscopy . Fluoroscopy time 55 seconds, dose 9 mGy Fluoroscopic images consistent with history of bilateral ureteroscopy and stent placement. Labels from bilateral [employer] Contour double-J ureteral stents placed on the scanned worksheet Please see procedure note for further details. HISTORY: bilat ureteroscopy laser litho, stent placement, Primary Diagnostic Code: NO IMMEDIATE ATTENTION REQUIRED Primary Interpreting Staff: BENJAMÍN PIMENTEL, Staff Physician ([place]) /BENJAMÍN HYLTON [facility] Pathology Reports: +/- 30 days of [...] MICROBIOLOGY RE PORT: Reporting Lab: SONYA PINON [facility] [CLIA# [id number]] [address] [place] [address] Accession [UID]: [id number] [[id number]] Received: Nov 30, 2023@19:53 Collection sample: URINE CLEAN CATCH Collection date: Nov 29, 2023 11:27 Site/Specimen: URINE Provider: CORBY OSORIO Test(s) ordered: CULTURE,URINE CLEAN CATCH..... completed: Dec 02, 2023 13:00 * BACTERIOLOGY FINAL REPORT => Dec 02, 2023 13:01 TECH CODE: [id number] Bacteriology Remark(s): 12/02/23 50,000-99,000 CFU/mL AT LEAST THREE BACTERIAL TYPES PRESENT INDICATING POSSIBLE CONTAMINATION, PLEASE REPEAT COLLECTION. =--=--=--=--=--=--=--=--=--=--= --=--=--=--=--=--=--=--=--=--=- -=--=--=--=--=-- Performing Laboratory: Bacteriology Report Performed By: SONYA PINON [facility] [CLIA# [id number]] [address] [facility] [place] [address] [facility]
--- OUTSIDE RECORDS SUMMARY | 2024-05-24 19:22 | XMS_ITS | Encounter Summary ---
Author Name Department of [place] Organization [place] Address [address] [place] [address] Care Team Providers Care History Teacher Name Role Phone RON KYRA Primary Care [...] Ervin's Name Patient's Relationship to Policy Ervin [facility] (WNR) MEDICARE ADVANTAGE [facility](W NR) * Aug 23, 2023 [id number] ANNALISA LOYD ITE PATIENT [facility] (WNR) MEDICARE ADVANTAGE [facility] (WNR) Aug 23, 2020 [id number] [phone] ANNALISA LOYD ITE PATIENT [facility] (WNR) MEDICARE ADVANTAGE [facility](W NR) Aug 23, 2012 [id number] 03 ANNALISA LOYD ITE PATIENT Selected Encounter This section includes the information on record at [place] for the Encounter. Date/Time Encounter Type Encounter Description Reason Pro vider Source Mar 06, 2024 12:00 PM Outpatient Encounter COMMUNITY CARE CONSULT [...] 10, 2024 01:30 PM AMBULATORY - MEDICINE [facility] Apr 10, 2024 01:31 [...] 08, 2024 02:30 PM AMBULATORY - MEDICINE [facility] May 08, 2024 02:31 PM AMBULATORY - [place]ONE [place] [facility] May 16, 2024 10:00 AM AMBULATORY - SURGERY [facility] May 16, 2024 10:01 AM AMBULATORY [place] [facility] May 19, 2024 08:00 AM AMBULATORY - NONE [place] [facility] May 26, 2024 10:00 AM AMBULATORY - NONE [place] [facility] Jun 15, 2024 09:00 AM AMBULATORY - [...] of theEncounter. The data comes from all [place] treatment facilities. Test Date/Time Test Type Test Details Facility Name Mar 17, 2024 11:23 AM Consult Order COMMUNITY CARE-ACUTE REHAB Cons Group Sales Manager's Choice [facility] Apr 06, 2024 04:04 PM Consult Order COMMUNITY CARE-ALLERGY Cons Group Sales Managers [facility] Social History: Smoking Status (Most current) [...] ity Feb 21, 2024 10:15 AM VA-TOBACCO USE WI 30 MIN OF WAKEUP [facility] Tobacco Use History This section includes a history of the smoking, or tobacco-related health factors, that were collected on or before the date of the Encounter. The data comes from the [place] facility where the Encounter took place. 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 NO [facility] Feb 21, 2024 10:15 AM VA-TOBACCO USE MED NO [facility] Feb 21, 2024 10:15 AM VA-TOBACCO USE WI 30 MIN OF WAKEUP [facility] Feb 21, 2024 10:15 AM VA-TOBACCO USER EVERY DAY [facility] Jul 17, 2021 02:27 PM CURRENT SMOKER REINIER Bhatia [facility] Jul 01, 2021 08:55 PM VA-VAAES TOBACCO U SE CURRENT NRT DECLINE [facility] Jul 01, 2021 02:41 PM CURRENT SMOKER REINIER Bhatia [facility] Dec 08, 2020 08:45 PM VA-TOBACCO USER EVERY DAY [facility] Dec 08, 2020 08:45 PM VA-VAAES TOBACCO U SE CURRENT NRT DECLINE [facility] Dec 08, 2020 06:58 PM VA-TOBACCO FORMER USER [facility] Apr 04, 2015 03:47 PM CURRENT SMOKER Less than a pack a day [facility] Apr 04, 2015 03:47 PM V1-PT NOT INTEREST ED IN QUIT TOBACCO USE [facility] Advance Directives: All historical and current [...] Nov 18, 2017 ADVANCE DIRECTIVE RADHA FERNANDEZ [facility] Jul 08, 2017 ADVANCE DIRECTIVE DISCUSSION PURNIMA ROJAS [facility] Radiology Reports: +/- 30 days of [...] AM RENAL AND BLADDER ULTRASOUND: GALINA LOYD [id number] -1945 M Ex Date: FEB 21, 2024@11:00 Req Phys: BRITTNEY SOTO Pat Loc: [facility] [place] G2RD (Req'g L Img Loc: ULTRASOUND (OOS) Service: Unknown [facility] [place] [address] (Case 55 COMPLETE) ULTRASOUND RENAL (US Detailed) CPT:94983 Reason for Study: US following ureteral stent removal, eval hydro/stones (Case 56 COMPLETE) ULTRASOUND PELVIS (US Detailed) CPT:69999 Clinical History: Please coordinate with Urology follow up in 3 months Report Status: Verified Date Reported: FEB 21, 2024 Date Verified: FEB 21, 2024 Record Changer E-Sig:/ES/BRITTNEY PEDERSEN Report: Ultrasound -- renal/bladder: COMPARISON: [...] BRITTNEY PEDERSEN, RADIOLOGY ATTENDING (Miah) /BRITTNEY FREIRE [facility] Encounter Notes: All associated encounter notes This section contains the clinical notes associated to the Encounter. Date/Time Encounter Note(s) Provider Source Mar 06, 2024 12:00 PM NONVA NOTE: LOCAL TITLE: NonVA Note STANDARD TITLE: NONVA NOTE DATE OF NOTE: MAR 06, 2024@12:00 ENTRY DATE: MAR 20, 2024@13:08:24 AUTHOR: ROXANNE ALLEN COSIGNER: URGENCY: STATUS: COMPLETED VistA Imaging - Scanned Document Community Care - Acute Rehab 03/06/2024 [facility] Visit Note Assessment and Plan Vitals Signs SCANNED DOCUMENT SIGNATURE NOT REQUIRED Electronically Filed: 03/20/2024 by: ROXANNE VALLEJO [facility]
--- OUTSIDE RECORDS SUMMARY | 2024-05-24 19:22 | XMS_ITS | Encounter Summary ---
Author Name [place] Organization [place] Address [address] [place] [address] Care Team Providers Care Stoker Mechanic Name Role Phone KYRA VELASQUEZ Primary [...] [facility] ([facility] ADVANTAGE [facility]CR(W NR) * Aug 23, 2023 [id number] ANNALISA LOYD ITE PATIENT [facility] (WNR) MEDICARE ADVANTAGE [facility] (WNR) Aug 23, 2020 [id number] [phone] ANNALISA LOYD ITE PATIENT [facility] (WNR) MEDICARE ADVANTAGE MCR(W NR) Aug 23, 2012 [id number] 03 ANNALISA LOYD ITE PATIENT Selected Encounter This section includes the information on record at [place] for the Encounter. Date/Time Encounter Type Encounter Description Reason Pro vider Source Mar 01, 2024 12:00 PM Outpatient Encounter ADMIN PAT ACTIVTIES (MASNONCT) IHE Encounter Template Text not used by [place] Plan of Treatment: Future Appointments (+ 6 [...] - NONE [place] [facility] Apr 06, 2024 01:00 PM AMBULATORY - NONE [place] [facility] Apr 06, 2024 01:00 PM AMBULATORY - MEDICINE [facility] Apr 10, 2024 01:30 PM AMBULATORY - MEDICINE [facility] Apr 10, 2024 01:31 PM AMBULATORY - NONE [place] [facility] Apr 11, 2024 10:00 AM AMBULATORY - SURGERY [facility] Apr 11, 2024 10:01 AM [place] [facility] Apr 21, 2024 10:30 AM AMBULATORY - NONE [place] [facility] May 03, 2024 02:30 PM [place]UL[place]ORY [place]GERY [place] [facility] May 04, 2024 10:30 AM [place]IC[place] [facility] May 04, 2024 11:00 AM AMBULATORY - SURGERY [place] [facility] May 04, 2024 12:30 PM AMBULATORY - NONE [place] [facility] May 04, 2024 01:00 PM AMBULATORY - [place]GERY [place] [facility] May 08, 2024 02:30 PM AMBULATORY - MEDICINE [facility] May 08, 2024 02:31 PM AMBULATORY - NONE [place] [facility] May 16, 2024 10:00 AM AMBULATORY - SURGERY [facility] May 16, 2024 10:01 AM AMBULATORY [place]GERY [place] [facility] May 19, 2024 08:00 AM AMBULATORY - NONE [place] [facility] May 26, 2024 10:00 AM AMBULATORY - NONE [place] [facility] Jun 15, 2024 09:00 AM AMBULATORY - NONE [facility] Active, Pending, and Scheduled Orders This section includes a listing of several types of active, pending, and scheduled orders, including clinic medications orders, diagnostic test orders, procedure orders and consult orders; where the start date of the order is 45 days before the date of the Encounter or 45 days after the date of theEncounter. The data comes from all [place] treatment facilities. 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 BENEFITS NO [facility] Feb 21, 2024 10:15 AM VA-TOBACCO USE MED NO [facility] Feb 21, 2024 10:15 AM VA-TOBACCO USE WI 30 MIN OF WAKEUP [facility] Feb 21, 2024 10:15 AM VA-TOBACCO USER EVERY DAY [facility] Jul 17, 2021 02:27 PM CURRENT SMOKER WHIT [facility] Jul 01, 2021 08:55 PM VA-VAAES [...] 2024 11:00 AM RENAL AND BLADDER ULTRASOUND: EVELYN LOYDE CARISA [id number] -1945 M Ex Date: FEB 21, 2024@11:00 Req Phys: BRITTNEY SOTO Loc: [facility] [place] G2RD (Req'g L Img Loc: ULTRASOUND (OOS) Service: [place] [address] (Case 55 COMPLETE) ULTRASOUND RENAL (US Detailed) CPT:60949 Reason for Study: US following ureteral stent removal, eval hydro/stones (Case 56 COMPLETE) ULTRASOUND PELVIS (US Detailed) CPT:41671 Clinical History: Please coordinate with Urology follow up in 3 months Report Status: Verified Date Reported: FEB 21, 2024 Date Verified: FEB 21, 2024 Airplane Pilot Photogrammetry E-Sig:/PARIS/BRITTNEY PEDERSEN Report: Ultrasound -- renal/bladder: COMPARISON: Ultrasound [...] Primary Interpreting Staff: BRITTNEY PEDERSEN, RADIOLOGY ATTENDING (Airplane Pilot Photogrammetry) /BRITTNEY FREIRE [facility] Encounter Notes: All associated encounter notes This section contains the clinical notes associated to the Encounter. Date/Time Encounter Note(s) Provider Source Mar 01, 2024 12:00 PM NONVA NOTE: LOCAL TITLE: NonVA Medical Records STANDARD TITLE: NONVA NOTE DATE OF NOTE: MAR 01, 2024@12:00 ENTRY DATE: MAR 13, 2024@12:28:27 AUTHOR: AGGIE JERONIMO EXP COSIGNER: URGENCY: STATUS: COMPLETED VistA Imaging - Scanned Document NONVA DATE OF SERVICE: 03/01/2024 SPEECH PATHOLOGY EVALUATION [facility] SCANNED DOCUMENT SIGNATURE NOT REQUIRED Electronically Filed: 03/13/2024 by: AGGIE Gandara [facility]
--- OUTSIDE RECORDS SUMMARY | 2024-05-24 19:22 | XMS_ITS | Encounter Summary ---
Author Name [facility] [place] Organization [facility] [place] Address [address] [place] [address] Care Team Providers Care Excellence Coach Name Role Phone RON KYRA Primary Care [...] Ervin's Name Patient's Relationship to Policy Ervin [facility] (WNR) MEDICARE ADVANTAGE [facility](W NR) * Aug 23, 2023 [id number] ANNALISA EDUARDO ITE PATIENT [facility] (WNR) MEDICARE ADVANTAGE [facility] (WNR) Aug 23, 2020 [id number] [phone] ANNALISA EDUARDO ITE PATIENT [facility] M[facility] (WNR) MEDICARE ADVANTAGE [facility](W NR) Aug 23, 2012 [id number] 03 ANNALISA EDUARDO ITE PATIENT Selected Encounter This section includes the information on record at OR for the Encounter. Date/Time Encounter Type Encounter Description Reason Pro vider Source Mar 17, 2024 06:45 AM Outpatient Encounter COMMUNITY CARE CONSULT IHE Encounter Template Text not used by VA Plan of Treatment: Future Appointments (+ 6 months) and Future Tests (+/- 45 days) The Plan of Treatment section includes future care activities for the patient from all OR treatmentfacilities. This section includes future appointments and future orders which are active, pending or scheduled. Future Appointments This section includes appointments that were scheduled to occur 6 months from the date of the Encounter, up to a maximum of 20 appointments. The data comes from all [place] treatment facilities. Appointment Date/Time Appointment Type Appointme [...] [place] [facility] May 26, 2024 10:00 AM AMBULATORY - NONE [place] [facility] Jun 15, 2024 09:00 AM AMBULATORY - [...] of theEncounter. The data comes from all OR treatment facilities. Test Date/Time Test Type Test Details Facility Name Mar 17, 2024 11:23 AM Consult Order COMMUNITY CARE-ACUTE REHAB Cons Metal Molder's Choice [facility] Apr 06, 2024 04:04 PM Consult Order COMMUNITY CARE-ALLERGY Cons Metal Molders [facility] Social History: Smoking Status (Most current) and Tobacco Use (All prior to encounter date) This section includes the most current, and the historical, smoking and tobacco- related health factors from the OR facility where the Encounter took place. Current Smoking Status This section includes the most current smoking, or tobacco-related health factor, from the OR facility where the Encounter took place. Date/Time Current Smoking Status Comment Facil ity Feb 21, 2024 10:15 AM VA-TOBACCO USER EVERY DAY [facility] Tobacco Use History This section includes a history of the smoking, or tobacco-related health factors, that were collected on or before the date of the Encounter. The data comes from the OR facility where the Encounter took place. 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 [facility] Feb 21, 2024 10:15 AM VA-TOBACCO USE MED NO [facility] Feb 21, 2024 10:15 AM VA-TOBACCO USE WI 30 MIN OF WAKEUP [facility] Feb 21, 2024 10:15 AM VA-TOBACCO USER EVERY DAY [facility] Jul 17, 2021 02:27 PM CURRENT SMOKER REINIER Bhatia [facility] Jul 01, 2021 08:55 PM VA-VAAES TOBACCO U SE CURRENT NRT DECLINE [facility] Jul 01, 2021 02:41 PM CURRENT SMOKER REINIER Bhatia [facility] Dec 08, 2020 08:45 [...] ALL of a patient's completed or amended OR Advance and Rescinded Directives. The entries below indicate that a directive exists for the patient, but an actual copy is not included with this document. The data comes from all OR facilities. Date Advance Directives Provider Source Nov [...] the Encounter. The data comes from all OR treatment facilities. Date/Time Radiology Report Provider Source Feb 21, 2024 11:00 AM RENAL AND BLADDER ULTRASOUND: GALINA EDUARDO [id number] -1945 M Ex Date: FEB 21, 2024@11:00 Req Phys: BRITTNEY SOTO Pat Loc: [facility] [place] G2RD (Req'g L Img Loc: ULTRASOUND ([facility]OS) Service: [place] [address] (Case 55 COMPLETE) ULTRASOUND RENAL (US Detailed) CPT:16367 Reason for Study: US following ureteral stent removal, eval hydro/stones (Case 56 COMPLETE) ULTRASOUND PELVIS (US Detailed) CPT:39662 Clinical History: Please coordinate with Urology follow up in 3 months Report Status: Verified Date Reported: FEB 21, 2024 Date Verified: FEB 21, 2024 Separator Operator E-Sig:/ES/BRITTNEY PEDERSEN Report: Ultrasound -- renal/bladder: COMPARISON: [...] BRITTNEY PEDERSEN, RADIOLOGY ATTENDING (Miah) /BRITTNEY FREIRE [facility] Encounter Notes: All associated encounter notes This section contains the clinical notes associated to the Encounter. Date/Time Encounter Note(s) Provider Source Mar 17, 2024 06:45 AM NONVA NOTE: LOCAL TITLE: COMMUNITY CARE-CARE COORDINATION PLAN NOTE STANDARD TITLE: NONVA NOTE DATE OF NOTE: MAR 17, 2024@06:45 ENTRY DATE: MAR 17, 2024@06:45:54 AUTHOR: KALE WARREN EXP COSIGNER: URGENCY: STATUS: COMPLETED COMMUNITY CARE-CARE COORDINATION PLAN NOTE Has ADDENDA Received an email from Teresa Dowling at [employer] looking to see whether this Riddle is adequately service connected to receive OCC-Acute Rehab referral for SNF stay. ([email or web address] ) Informed that this Riddle is 100% service connected and does qualify for VA coverage of short-term rehab. He is currently at [facility] under his managed medicare through [facility] and has been given a cut date of 03/18. Advised that Teresa will need to get the following to me immediately in order to write an authorization to sweet pickled fruit maker where [facility] is dropping off: ======= Good morning Teresa, Yes, I am the correct person and YES, Mr. Eduardo is 100% service connected. In order to write this authorization I will need the following from you as soon as possible: 1. Primary ICD-10 diagnosis code 2. Last MD note 3. Last note from whatever skilled services he is receiving 4. The start date that you'd like us to utilize for the authorization (not sure if this is 03/18 or 03/19) /vivian/ KALE WARREN BA, RN CNOR Registered Nurse Signed: 03/17/2024 06:48 03/17/2024 ADDENDUM STATUS: COMPLETED Community Care Consult: Community Care-Acute Rehab Consult No: [id number] [facility] Referral #: [id number] Community Provider Info: Site Name: [facility] Address: [address] [place] [address], [id number] Phone #: [phone] Fax #: [phone] Specialty: Penitentiary Facility Chief Complaint, as noted on entered consult: s/p inpatient hospitalization at [facility] following left proximal femur fracture with ORIF 02/27, now requiring additional SNF care for ongoing PT services. Admitted? yes Level of Care Coordination COMPLEX Care Coordination was determined from: Chart Review and consult tool box calculations Facility Community Care Office Contact Care Coordination Point of Contact: Teresa Dowling, Carbon Sequestration Plant Operator [email or web address] Services: Complex Moderate Care Coordination Services Case Management, if appropriate Direct communications with interdisciplinary team Plan: Riddle has utilized his Managed Medicare plan for the first 20 days of rehab stay. This authorization is valid for 100 days from 03/18/24 through 06/25/24, while skilled services are in place. This [facility] RN remains available to assist during validity period of authorization. /vivian/ KALE WARREN BA, RN CNOR Registered Nurse Signed: 03/17/2024 11:29 KALE WARREN [facility]
--- OUTSIDE RECORDS SUMMARY | 2024-05-24 19:22 | XMS_ITS ---
Author Name [facility] [place] Organization [place] Address [address] [place] [address] Care Team Providers Care Cost And Sales Record Supervisor Name Role Phone KYRA VELASQUEZ Primary [...] Policy Ervin [facility] (WNR) MEDICARE ADVANTAGE [facility](W NR) * Aug 23, 2023 [id number] ANNALISA LOYD ITE PATIENT [facility] MCR (WNR) MEDICARE ADVANTAGE [facility] (WNR) Aug 23, 2020 [id number] [phone] ANNALISA LOYD ITE PATIENT [facility] (WNR) MEDICARE ADVANTAGE [facility](W NR) Aug 23, 2012 [id number] 03 ANNALISA LOYD ITE PATIENT Selected Encounter This section includes the information on record at [place] for the Encounter. Date/Time Encounter Type Encounter Description Reason Pro vider Source Feb 29, 2024 08:11 AM Outpatient Encounter PRIMARY CARE/MEDICINE IHE Encounter Template Text not used by VA Plan of Treatment: Future Appointments (+ 6 months) and Future Tests (+/- 45 days) The Plan of Treatment section includes future care activities for the [facility] [place] [facility]. This section includes future appointments and [...] [place] [facility] Apr 06, 2024 01:00 PM AMBULATORY - NONE [place] [facility] Apr 06, 2024 01:00 PM AMBULATORY - MEDICINE [facility] Apr 10, 2024 01:30 PM AMBULATORY - MEDICINE [facility] Apr 10, 2024 01:31 PM AMBULATORY - NONE [place] [facility] Apr 11, 2024 10:00 AM AMBULATORY - SURGERY [facility] Apr 11, 2024 10:01 AM AMBULATORY - [place]GERY [place] [facility] Apr 21, 2024 10:30 AM AMBULATORY - NONE [place] [facility] May 03, 2024 02:30 PM AMBULATORY - SURGERY [place] [facility] May 04, 2024 10:30 AM AMBULATORY - [place]ICINE [place] [facility] May 04, 2024 11:00 AM AMBULATORY - [place]GERY [place] [facility] May 04, 2024 12:30 PM AMBULATORY - NONE [place] [facility] May 04, 2024 01:00 PM AMBULATORY - [place]GERY [place] [facility] May 08, 2024 02:30 PM AMBULATORY - MEDICINE [facility] May 08, 2024 02:31 PM AMBULATORY - NONE [place] [facility] May 16, 2024 10:00 AM AMBULATORY - SURGERY [facility] May 16, 2024 10:01 AM AMBULATORY - [place]GERY [place] [facility] May 19, 2024 08:00 AM AMBULATORY - NONE [place] [facility] May 26, 2024 10:00 AM AMBULATORY - NONE [place] [facility] Jun 15, 2024 09:00 AM AMBULATORY - NONE [facility] Active, Pending, and Scheduled Orders [...] 12:13 PM Consult Order COMMUNITY CARE-NEUROLOGY Cons Sheet Rock Taper Helper's [facility] Mar 17, 2024 11:23 AM Consult Order COMMUNITY CARE[facility]AB [facility] Apr 06, 2024 04:04 PM Consult Order COMMUNITY CARE-ALLERGY [facility] Social History: Smoking Status (Most current) and [...] 2024 10:15 AM VA-TOBACCO USER EVERY DAY [facility] Tobacco Use History This section includes a history of the smoking, or tobacco-related health factors, that were collected on or before the date of the Encounter. The data comes from the [place] facility where the Encounter took place. Date/Time Smoking Status/Tobacco Use Comment F acility Feb 21, 2024 10:15 AM VA-TOBACCO USE ADVICE [facility] Feb 21, 2024 10:15 AM VA-TOBACCO USE PATIENT RESOURCE COORDINATOR NO [facility] Feb 21, 2024 10:15 AM VA-TOBACCO USE MED NO [facility] Feb 21, 2024 10:15 AM VA-TOBACCO USE WI 30 MIN OF WAKEUP [facility] Feb 21, 2024 10:15 AM VA-TOBACCO USER EVERY DAY [facility] Jul 17, 2021 02:27 PM CURRENT SMOKER WHIT [facility] Jul 01, 2021 08:55 PM VA-VAAES TOBACCO U SE CURRENT NRT DECLINE [facility] Jul 01, 2021 02:41 PM CURRENT SMOKER WHIT Jannette [facility] Dec 08, 2020 08:45 [...] AM RENAL AND BLADDER ULTRASOUND: GALINA LOYD [id number] -1945 M Ex Date: FEB 21, 2024@11:00 Req Phys: BRITTNEY SOTO Loc: [facility] [place] G[facility] (Req'g L Img Loc: ULTRASOUND ([facility]OS) Service: [place] [address] (Case 55 COMPLETE) ULTRASOUND RENAL (US Detailed) CPT:65695 Reason for Study: US following ureteral stent removal, eval hydro/stones (Case 56 COMPLETE) ULTRASOUND PELVIS (US Detailed) CPT:54441 Clinical History: Please coordinate with Urology follow [...] BRITTNEY PEDERSEN, RADIOLOGY ATTENDING (Miah) /BRITTNEY FREIRE [facility] Encounter Notes: All associated encounter notes This section contains the clinical notes associated to the Encounter. Date/Time Encounter Note(s) Provider Source Feb 29, 2024 08:14 AM NONVA NOTE: LOCAL TITLE: NonVA Note STANDARD TITLE: NONVA NOTE DATE OF NOTE: FEB 29, 2024@08:14 ENTRY DATE: FEB 29, 2024@08:14:24 AUTHOR: JENIFER SHANE EXP COSIGNER: URGENCY: STATUS: COMPLETED Walking placard received Patient needs to be seen within 6months in order this to be signed RTC is in place and MSAs alerted via amanda /vivian/ JENIFER SHANE LPN Signed: 02/29/2024 08:15 JENIFER SHANE [facility]
--- OUTSIDE RECORDS SUMMARY | 2024-05-24 19:22 | XMS_ITS ---
Author Name Department of Vetera Affairs [place] Organization [place] Address [address] [place] [address] Care Team Providers Care Thermostat Maker Name Role Phone KYRA VELASQUEZ Primary [...] Patient's Relationship to Policy Ervin [facility] (WNR) MEDICARE ADVANTAGE MCR(W NR) * Aug 23, 2023 [id number] ANNALISA LOYD ITE PATIENT [facility] (WNR) MEDICARE ADVANTAGE [facility] (WNR) Aug 23, 2020 [id number] [phone] ANNALISA LOYD ITE PATIENT [facility] (WNR) MEDICARE ADVANTAGE MCR(W NR) Aug 23, 2012 [id number] [phone] ANNALISA LOYD ITE PATIENT Selected Encounter This section includes the information on record at [place] for the Encounter. Date/Time Encounter Type Encounter Description Reason Pro vider Source Apr 05, 2024 01:36 PM Outpatient Encounter ADMIN PAT ACTIVTIES (MASNONCT) IHE Encounter Template Text not used by [place] Plan of Treatment: Future Appointments (+ 6 months) and Future Tests (+/- 45 days) The Plan of Treatment section includes future care activities for the patient from all [place] treatmentfacilities. This section includes future appointments and future orders which are active, pending or scheduled. Future Appointments This section includes appointments that were scheduled to occur 6 months from the date of the Encounter, up to a maximum of 20 appointments. The data comes from all [place] treatment facilities. Appointment Date/Time Appointment Type Appointme nt Facility Name Apr 06, 2024 01:00 PM AM[place]ULATORY - NONE [place] [facility] Apr 06, 2024 01:00 PM AMBULATORY - MEDICINE [facility] Apr 10, 2024 01:30 PM AMBULATORY - MEDICINE [facility] Apr 10, 2024 01:31 PM AMBULATORY - NONE [place] [facility] Apr 11, 2024 10:00 AM AMBULATORY - SURGERY [facility] Apr 11, 2024 10:01 AM [place] [facility] Apr 21, 2024 10:30 AM AMBULATORY - NONE [place] [facility] May 03, 2024 02:30 PM AMBUL[place]ORY [place] [facility] May 04, 2024 10:30 AM AMBUL[place]ORY [place]IC[place] [facility] May 04, 2024 11:00 AM [place]UL[place]ORY [place] [facility] May 04, 2024 12:30 PM AMBULATORY - NONE [place] [facility] May 04, 2024 01:00 PM AM[place]UL[place]ORY [place] [facility] May 08, 2024 02:30 PM AMBULATORY - MEDICINE [facility] May 08, 2024 02:31 PM AMBULATORY - NONE [place] [facility] May 16, 2024 10:00 AM AMBULATORY - SURGERY [facility] May 16, 2024 10:01 AM [place] [facility] May 19, 2024 08:00 AM AMBULATORY - NONE [place] [facility] May 26, 2024 10:00 AM AMBULATORY - NONE [place] [facility] Jun 15, 2024 09:00 AM AMBULATORY - NONE [place] [facility] Aug 29, 2024 10:30 AM AMBULATORY - NONE [place] [facility] Active, Pending, and Scheduled Orders This section includes a listing of several types of active, pending, and scheduled orders, including clinic medications orders, diagnostic test orders, procedure orders and consult orders; where the start date of the order is 45 days before the date of the Encounter or 45 days after the date of theEncounter. The data comes from all [place] treatment facilities. Test Date/Time Test Type Test Details Facility Name Mar 17, 2024 11:23 AM Consult Order COMMUNITY CARE-ACUTE REHAB Cons [facility] [place] [facility] Apr 06, 2024 04:04 PM Consult Order COMMUNITY CARE-ALLERGY [facility] May 03, 2024 12:00 AM Laboratory - Chemi stry Order URORISK DIAGNOSTIC PROFILE(Q) 24H RENAL STONE KIT 24H URINE SP [facility] May 17, 2024 02:27 PM Consult Order CAREGIVER SUPPORT PROGRAM OUTPT Cons [facility] [place] [facility] May 19, 2024 12:44 PM Consult Order COMMUNITY CARE-PALLIATIVE CARE [facility] [employer] [facility] Lab Results: +/- 30 days of the [...] Result - Unit Interpretation Reference Range Comment May 04, 2024 10:32 AM [facility] UREA NITROGEN Specimen Type: PLASMA Comment: , Tests performed on ScratchJr SN:[id number]) Ordering Provider: DAVID FAM Report Released Date/Time: Nov 15, 2023 11:30 AM Reporting Lab: [facility] [address] [facility] [place] [address] Performing Lab: [facility] [address] [facility] [address] UREA NITROGEN 10 mg/dL 03-16May 04, 2024 10:32 AM [facility] CREATININE WITH eGFR PANEL Specimen Type: PLASMA Comment: , Tests performed on ScratchJr SN:[id number] ([id number]) Ordering Provider: DAVID FAM Report Released Date/Time: Nov 15, 2023 11:30 AM Reporting Lab: SONYA GAYLE [facility] [address] [facility] [address] Performing Lab: SONYA WILLIAMSONT [facility] [address] [facility] [address] CREATININE 0.91 mg/dL 0.50-1.50 eGFR(CKD-EPI 2020) 86 Social History: Smoking Status (Most current) and Tobacco Use (All prior to encounter date) This section includes the most current, and the historical, smoking and tobacco- related health factors from the [place] facility where the Encounter took place. Current Smoking Status This section includes the most current smoking, or tobacco-related health factor, from the [place] facility where the Encounter took place. Date/Time Current Smoking Status Comment Facil ity Feb 21, 2024 10:15 AM VA-TOBACCO USER EVERY DAY [facility] Tobacco Use History This section includes a history of the smoking, or tobacco-related health factors, that were collected on or before the date of the Encounter. The data comes from the [place] facility where the Encounter took place. Date/Time Smoking Status/Tobacco Use Comment F acility Feb 21, 2024 10:15 AM VA-TOBACCO USE ADVICE [facility] Feb 21, 2024 10:15 AM VA-TOBACCO USE TIE IN HAND NO [facility] Feb 21, 2024 10:15 AM VA-TOBACCO USE MED NO [facility] Feb 21, 2024 10:15 AM VA-TOBACCO USE WI 30 MIN OF WAKEUP [facility] Feb 21, 2024 10:15 AM [facility] Jul 17, 2021 02:27 PM CURRENT SMOKER REINIER GAYLE [facility] Jul 01, 2021 08:55 PM VA-VAAES TOBACCO U SE CURRENT NRT DECLINE [facility] Jul 01, 2021 02:41 PM CURRENT SMOKER [place] [facility] Dec 08, 2020 08:45 PM VA-TOBACCO USER EVERY DAY [facility] Dec 08, 2020 08:45 PM VA-VAAES TOBACCO U SE CURRENT NRT DECLINE [facility] Dec 08, 2020 06:58 PM VA-TOBACCO FORMER USER [facility] Apr 04, 2015 03:47 PM CURRENT SMOKER Less than a pack a day [facility] Apr 04, 2015 03:47 PM V1-PT NOT INTEREST ED IN QUIT TOBACCO USE [facility] Advance Directives: All historical and current Section Date Range: From patient's date of to the date document was created. This section includes ALL of a patient's completed or amended [place] Advance and Rescinded Directives. The entries below indicate that a directive exists for the patient, but an actual copy is not included with this document. The data comes from all [place] facilities. Date Advance Directives Provider Source Nov 18, 2017 ADVANCE DIRECTIVE RADHA FERNANDEZ [facility] Jul 08, 2017 ADVANCE DIRECTIVE DISCUSSION PURNIMA ROJAS [facility] Radiology Reports: +/- 30 days [...] the Encounter. The data comes from all [place] treatment facilities. Date/Time Radiology Report Provider Source May 04, 2024 12:30 PM CTA ABDOMEN AND PE LVIS: GALINA LOYD [id number] -1945 M Exm Date: MAY 04, 2024@12:30 Req Phys: VIMAL FAM Pat Loc: [facility] VASCULAR 15 M3RH (Req'g Lo Img Loc: CT SCAN (OOS) Service: [place] [address] (Case [id number] COMPLETE) CTA ABDOMEN AND PELVIS (CT Detailed) CPT:74161 Contrast Media : Non-ionic Iodinated Reason for Study: F/U AAA, 5.1cm by duplex Clinical History: No contrast allergy BUN: 8 (02/11/23 14:30) CREATI: 0.84 (02/11/23 14:30) eGFR Last 3 Results Collection DT Spec CREATI eGFR(CK 02/11/2023 14:30 PLASM 0.84 >90.0 12/08/2022 12:01 PLASM 0.90 88 07/27/2022 12:30 PLASM 0.98 80 Weight: 125 lb [56.70 kg] (07/12/2023 13:05) BODY MASS INDEX - JUL 12, 2023@13:05:58 18.0 Allergies: OMNIPAQUE 350 INJECTION Precontrast medications ordered Coordinate w/VL and VS appt Report Status: Verified Date Reported: MAY 05, 2024 Date Verified: MAY 05, 2024 Sales Estimator E-Sig:/ES/NÉSTOR PASCUAL Report: CTA ABDOMEN AND PELVIS , 05/04/2024 TECHNIQUE: Helical CT images acquired through the abdomen and pelvis after IV contrast administered in the arterial phase INDICATION: F/U AAA, 5.1cm by duplex COMPARISON: CT A/P 10/22/23 Findings: There is an infrarenal abdominal aortic aneurysm with a maximum dimension of 5 cm AP by 4.5 cm transverse. This aneurysm continues to the bifurcation. Each common iliac artery is normal in caliber with the right measuring 9 mm in the left measuring 8. The internal and external iliac arteries are normal in caliber. 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 Moderate calcified atheromatous plaque is present throughout the course of the aortoiliac system. The origins of the SMA and celiac axis are widely patent. Moderate plaque is present in the proximal aspect of each singular renal artery. The OBDULIA origin is occluded. The liver demonstrates normal attenuation. Unchanged subcentimeter hypoattenuating lesion inferior right lobe on series 5 image 46. No new focal hepatic lesion nor intrahepatic biliary ductal dilatation. A gallstone is present in the gallbladder. No adjacent inflammatory change. Normal CT appearance of the spleen and adrenal glands. The pancreas is normal. No main pancreatic ductal dilatation. There are prompt, bilateral symmetric nephrograms. 3 cm low-attenuation lesion in the interpolar region of the left kidney with a central area of high density comparable to that seen on the comparison examination. Previously seen nephrostomy tubes have been removed. No hydronephrosis. No urolithiasis. No remarkable perinephric fat stranding. Indeterminate flat calcification the posterior right bladder wall on series 5 image 87. This may be related to prior tube placement. Attention on follow-up imaging. No bowel wall dilatation nor appreciable wall thickening. And large amount of stool is present throughout the large bowel. No free air, free fluid, nor focal fluid collection. No lymphadenopathy. Osseous structures: No aggressive lytic nor blastic lesion. Status post left femoral ORIF. Impression: No interval increase in size and 5.1 cm infrarenal abdominal aortic aneurysm. Other findings as above including cholelithiasis and findings suggestive of constipation. Clinically correlate for constipation. Primary Diagnostic Code: NO IMMEDIATE ATTENTION REQUIRED Primary Interpreting Staff: NÉSTOR PASCUAL, RADIOLOGIST (Sales Estimator) /NÉSTOR CONNER [facility] Encounter Notes: All associated encounter notes This section contains the clinical notes associated to the Encounter. Date/Time Encounter Note(s) Provider Source Apr 05, 2024 01:36 PM ADMINISTRATIVE NOT E: LOCAL TITLE: CCC: SCHEDULING ADMINISTRATION STANDARD TITLE: ADMINISTRATIVE NOTE DATE OF NOTE: APR 05, 2024@13:36:47 ENTRY DATE: APR 05, 2024@13:36:48 AUTHOR: ZOË DANIEL EXP COSIGNER: URGENCY: STATUS: COMPLETED CCC: SCHEDULING ADMINISTRATION Has ADDENDA Patient Demographics Patient Name: GALINA LOYD Patient Primary Phone: [phone] Patient Primary Address: [address] [place] [address] Patient : 1945 Patient Age: 78 Caller/Recipient Relation to Patient: Other If Other Describe Relation to Patient: [facility] Caller Name: Saturnino Lea Administrative Administrative Note Reason: Home Health / Fdc Administrative Note Comments: Non [facility] Agency calling to notify pact team: Name of caller/title: Whit Lea RN Agency: [facility] Call back number: Medical Report: Whit is requesting see PCP for discharge follow up and for a wound on his left shoulder and an unstageable ulcer on left buttocks which is full of yellow slough. Please contact patient to assist with scheduling. IMPORTANT: This note was created by [facility] staff. Please do not alert the staff member by adding them as a signer for future communications. Alerts are not monitored by this user. /vivian/ ZOË DANIEL VISN1 [facility] AMSA Signed: 04/05/2024 13:36 Receipt Acknowledged By: 04/05/2024 13:53 /es/ JENIFER SHANE LPN 04/05/2024 13:53 /es/ EFRAÍN VALIENTE for OJ GIL 04/05/2024 13:58 /es/ ELSI SCHULTE 04/05/2024 ADDENDUM STATUS: COMPLETED RTC placed for provider follow up /vivian/ EFRAÍN VALIENTE Signed: 04/05/2024 13:52 04/05/2024 ADDENDUM STATUS: COMPLETED Please reschedule patient from previously cancelled appt /vivian/ JENIFER SHANE LPN Signed: 04/05/2024 13:53 ZOË DANIEL [facility]
--- OUTSIDE RECORDS SUMMARY | 2024-05-24 19:22 | XMS_ITS | Encounter Summary ---
Author Name Department [place] Organization [place] Address [address] [place] [address] Care Team Providers Care Assistant Family Teacher Name Role Phone RON KYRA Primary [...] Ervin's Name Patient's Relationship to Policy Ervin [facility] (WNR) MEDICARE ADVANTAGE [facility](W NR) * Aug 23, 2023 [id number] ANNALISA EDUARDO ITE PATIENT [facility] MCR (WNR) MEDICARE ADVANTAGE MCR (WNR) Aug 23, 2020 [id number] [phone] ANNALISA EDUARDO ITE PATIENT [facility] MCR (WNR) MEDICARE ADVANTAGE [facility](W NR) Aug 23, 2012 [id number] ANNALISA EDUARDO ITE PATIENT Selected Encounter This section includes the information on record at [place] for the Encounter. Date/Time Encounter Type Encounter Description Reason Pro vider Source Mar 01, 2024 07:27 AM Outpatient Encounter COMMUNITY CARE CONSULT IHE [...] AMBULATORY - [place]ONE [place] [facility] Apr 06, 2024 01:00 PM AMBULATORY - NONE [place] [facility] Apr 06, 2024 01:00 PM AMBULATORY - MEDICINE [facility] Apr 10, 2024 01:30 PM AMBULATORY - MEDICINE [facility] Apr 10, 2024 01:31 PM AMBULATORY - NONE [place] [facility] Apr 11, 2024 10:00 AM AMBULATORY - SURGERY [facility] Apr 11, 2024 10:01 AM [place] [facility] Apr 21, 2024 10:30 AM AMBULATORY - NONE [place] [facility] May 03, 2024 02:30 PM [place] [facility] May 04, 2024 10:30 AM [place]ORY [place] [facility] May 04, 2024 11:00 AM AMBULATORY [place] [facility] May 04, 2024 12:30 PM AMBULATORY - NONE [place] [facility] May 04, 2024 01:00 PM AMB[place]ATORY [place] [facility] May 08, 2024 02:30 PM AMBULATORY - MEDICINE [facility] May 08, 2024 02:31 PM AMBULATORY - [place]ONE [place] [facility] May 16, 2024 10:00 AM AMBULATORY - SURGERY [facility] May 16, 2024 10:01 AM [place]BUL[place]ORY [place] [facility] May 19, 2024 08:00 AM AMBULATORY - NONE [place] [facility] May 26, 2024 10:00 AM AMBULATORY - NONE [place] [facility] Jun 15, 2024 09:00 AM AMBULATORY [...] 12:13 PM Consult Order COMMUNITY CARE-NEUROLOGY Cons [facility] Mar 17, 2024 11:23 AM Consult Order [facility] 06, [facility]24 04:04 PM Consult Order COMMUNITY C[facility]GY [facility] Social History: Smoking Status (Most [...] USER EVERY DAY [facility] Tobacco Use History [...] Feb 21, 2024 10:15 AM VA-TOBACCO USE MEMBER SERVICE REPRESENTATIVE NO [facility] Feb 21, 2024 10:15 AM VA-TOBACCO USE MED NO [facility] Feb 21, 2024 10:15 AM VA-TOBACCO USE WI 30 MIN OF WAKEUP [facility] Feb 21, 2024 10:15 AM VA-TOBACCO USER EVERY DAY [facility] Jul 17, 2021 02:27 PM CURRENT SMOKER WH[place] [facility] Jul 01, 2021 08:55 PM VA-VAAES TOBACCO U SE CURRENT NRT DECLINE [facility] Jul 01, 2021 02:41 PM CURRENT SMOKER REINIER GAYLE [facility] Dec 08, 2020 08:45 PM VA-TOBACCO [...] AM RENAL AND BLADDER ULTRASOUND: GALINA EDUARDO [id number] -1945 M Ex Date: FEB 21, 2024@11:00 Req Phys: BRITTNEY SOTO Loc: [facility] [place] G2RD (Req'g L Img Loc: ULTRASOUND (OOS) Service: [place] [address] (Case [id number] COMPLETE) ULTRASOUND RENAL (US Detailed) CPT:84087 Reason for Study: US following ureteral stent removal, eval hydro/stones (Case 56 COMPLETE) ULTRASOUND PELVIS (US Detailed) CPT:62915 Clinical History: Please coordinate with Urology follow [...] BRITTNEY PEDERSEN, RADIOLOGY ATTENDING (Miah) /BRITTNEY FREIRE [facility] Encounter Notes: All associated encounter notes This section contains the clinical notes associated to the Encounter. Date/Time Encounter Note(s) Provider Source Mar 01, 2024 07:27 AM NONVA NOTE: LOCAL TITLE: COMMUNITY CARE-CARE COORDINATION PLAN NOTE STANDARD TITLE: NONVA NOTE DATE OF NOTE: MAR 01, 2024@07:27 ENTRY DATE: MAR 01, 2024@07:27:51 AUTHOR: LAINE LUA COSIGNER: URGENCY: STATUS: COMPLETED Community Care Consult- Acute Rehab Opal, Patient Scheduler, [facility], (contact number [phone]) secure emailed asking about [employer]'s service connection in preparation for discharge to SNF/HAFSA. Informed: PRIMARY ELIGIBILTY CODE - SERVICE CONNECTED 50% to 100%SERVICE CONNECTED % - 100 ==== Secure email response: Tiburcio Joseph- [employer] Galina Eduardo 45 is eligible for VA covered SNF/HAFSA. It is recommended he first use his Medicare benefit for the first 20 days. Then if care is still needed, the VA can write for another 100 days. Thank you for checking with us on this and for partnering in care for this ! Laine kingston/ Laine Lua DNP, MSA, RN-[facility] Clinical Adjuster Arbitrator Signed: 03/01/2024 07:29 LAINE LUA [facility]
--- OUTSIDE RECORDS SUMMARY | 2024-05-24 19:22 | XMS_ITS ---
Author Name [place] Address [address] [place] [address] Care Team Providers Care Motor Express Clerk Name Role Phone KYRA VELASQUEZ Primary [...] Patient's Relationship to Policy Ervin [facility] (WNR) MEDICARE ADVANTAGE MCR(W NR) * Aug 23, 2023 [id number] [phone] ANNALISA LOYD ITE PATIENT [facility] (WNR) MEDICARE ADVANTAGE [facility] (WNR) Aug 23, 2020 [id number] [phone] ANNALISA LOYD ITE PATIENT [facility] (WNR) MEDICARE ADVANTAGE MCR(W NR) Aug 23, 2012 [id number] ANNALISA LOYD ITE PATIENT Selected Encounter This section includes the information on record at [place] for the Encounter. Date/Time Encounter Type Encounter Description Reason Pro vider Source Feb 29, 2024 09:49 AM Outpatient Encounter ADMIN PAT ACTIVTIES (MASNONCT) IHE Encounter Template Text not used by [place] Plan of Treatment: Future Appointments (+ 6 [...] 10, 2024 01:30 PM AMBULATORY - MEDICINE [facility] Apr 10, 2024 01:31 PM AMBULATORY [...] [place] [facility] May 04, 2024 01:00 PM AM[place]UL[place]ORY [place] [facility] May 08, 2024 02:30 PM AMBULATORY - MEDICINE [facility] May 08, 2024 02:31 PM AMBULATORY - NONE [place] [facility] May 16, 2024 10:00 AM AMBULATORY - SURGERY [facility] May 16, 2024 10:01 AM AM[place]UL[place]ORY [place] [facility] May 19, 2024 08:00 AM AMBULATORY - NONE [place] [facility] May 26, 2024 10:00 AM AMBULATORY - NONE [place] [facility] Jun 15, 2024 09:00 AM AMBULATORY - NONE [facility] Active, Pending, and Scheduled [...] 12:13 PM Consult Order COMMUNITY CARE-NEUROLOGY Cons Assembler Metal Building's [facility] Mar 17, 2024 11:23 AM Consult Order COMMUNITY CARE-ACUTE REHAB Cons Assembler Metal Buildings [facility] Apr 06, 2024 04:04 PM Consult Order COMMUNITY CARE-ALLERGY [facility] Social History: Smoking Status (Most [...] Feb 21, 2024 10:15 AM VA-TOBACCO USE BREAD WRAPPING MACHINE FEEDER NO [facility] Feb 21, 2024 [...] RENAL AND BLADDER ULTRASOUND: EVELYN LOYDE CARISA [id number] -1945 M Ex Date: FEB 21, 2024@11:00 Req Phys: BRITTNEY SOTO Loc: [facility] [place] G2RD (Req'g L Img Loc: ULTRASOUND (OOS) Service: [place] [facility] [place] [address] (Case 55 COMPLETE) ULTRASOUND RENAL (US Detailed) CPT:21269 Reason for Study: US following ureteral stent removal, eval hydro/stones (Case 56 COMPLETE) ULTRASOUND PELVIS (US Detailed) CPT:50234 Clinical History: Please coordinate with Urology follow up in 3 months Report Status: Verified Date Reported: FEB 21, 2024 Date Verified: FEB 21, 2024 Anodize Machine Operator E-Sig:/VIVIAN/BRITTNEY PEDERSEN Report: Ultrasound -- renal/bladder: COMPARISON: [...] Primary Interpreting Staff: BRITTNEY PEDERSEN, RADIOLOGY ATTENDING (Anodize Machine Operator) /BRITTNEY FREIRE [facility] Encounter Notes: All associated encounter notes This section contains the clinical notes associated to the Encounter. Date/Time Encounter Note(s) Provider Source Feb 29, 2024 09:50 AM LETTERS: LOCAL TITLE: LETTER TO PATIENT ATTEMPT TO CONTACT STANDARD TITLE: LETTERS DATE OF NOTE: FEB 29, 2024@09:50 ENTRY DATE: FEB 29, 2024@09:50:20 AUTHOR: CRESENCIO HOLLINS COSIGNER: URGENCY: STATUS: COMPLETED [facility] [address] [place] [address] FEB 29, 2024 GALINA LOYD JR [address] [address] Dear GALINA LOYD JR, [facility] in [place] is trying to reach you to reschedule an appointment. If you have already been in contact with the clinic and rescheduled an appointment you may disregard this letter. If we do not hear from you within 14 days, we will assume you no longer desire an appointment. Please call one of the numbers provided below so that we may find a suitable date for you: Service: Urology Service Direct: [phone] Ext: [phone] Toll Free: [phone] Ext: [phone] We look forward to hearing from you. Sincerely, Clinical Operations CRESENCIO HOLLINS [facility] Feb 29, 2024 09:49 AM ADMINISTRATIVE NOT E: LOCAL TITLE: Has Admin Note STANDARD TITLE: ADMINISTRATIVE NOTE DATE OF NOTE: FEB 29, 2024@09:49 ENTRY DATE: FEB 29, 2024@09:49:33 AUTHOR: CRESENCIO HOLLINS EXP COSIGNER: URGENCY: STATUS: COMPLETED Has Admin Note Has ADDENDA Reason for call Clinic Name:[facility] MD RTC- PID 03/01/2024 1st call, Letter sent PT CXD 03/01/24 APPT /vivian/ CRESENCIO HOLLINS LEAD LEAD MANUFACTURING TECHNICIAN Signed: 02/29/2024 09:50 03/20/2024 ADDENDUM STATUS: COMPLETED Rtc dispositioned for failed mandated rescheduliing effort- no response back from the pt /vivian/ CRESENCIO HOLLINS LEAD LEAD MANUFACTURING TECHNICIAN Signed: 03/20/2024 14:23 CRESENCIO HOLLINS [place] [facility]
--- OUTSIDE RECORDS SUMMARY | 2024-05-24 19:22 | XMS_ITS ---
Author Name [place] Organization [place] Address [address] [place] [address] Care Team Providers Care Supervising Broker Name Role Phone RON KYRA Primary Care [...] Ervin's Name Patient's Relationship to Policy Ervin [facility] (WNR) MEDICARE ADVANTAGE [facility](W NR) * Aug 23, 2023 [id number] ANNALISA LOYD ITE PATIENT [facility] (WNR) MEDICARE ADVANTAGE M[facility] (WNR) Aug 23, 2020 [id number] [phone] ANNALISA LOYD ITE PATIENT [facility] (WNR) MEDICARE ADVANTAGE [facility](W NR) Aug 23, 2012 [id number] ANNALISA LOYD ITE PATIENT Selected Encounter This section includes the information on record at [place] for the Encounter. Date/Time Encounter Type Encounter Description Reason Pro vider Source Mar 21, 2024 11:16 AM Outpatient Encounter TELEPHONE TRIAGE IHE Encounter Template [...] AMBULATORY - NONE [place] [facility] Apr 06, 2024 01:00 PM AMBULATORY - MEDICINE [facility] Apr 10, 2024 01:30 PM AMBULATORY - MEDICINE [facility] Apr 10, 2024 01:31 PM AMBULATORY - NONE [place] [facility] Apr 11, 2024 10:00 AM AMBULATORY - SURGERY [facility] Apr 11, 2024 10:01 AM [place] [facility] Apr 21, 2024 10:30 AM AMBULATORY - NONE [place] [facility] May 03, 2024 02:30 PM [place] [facility] May 04, 2024 10:30 AM [place] [facility] May 04, 2024 11:00 AM AMBUL[place]ORY [place] [facility] May 04, 2024 12:30 PM AMBULATORY - NONE [place] [facility] May 04, 2024 01:00 PM [place] [facility] May 08, 2024 02:30 PM AMBULATORY - MEDICINE [facility] May 08, 2024 02:31 PM AMBULATORY - NONE [place] [facility] May 16, 2024 10:00 AM AMBULATORY - SURGERY [facility] May 16, 2024 10:01 AM [place] [facility] May 19, 2024 08:00 AM AMBULATORY - NONE [place] [facility] May 26, 2024 10:00 AM AMBULATORY - NONE [place] [facility] Jun 15, 2024 09:00 AM AMBULATORY - NONE [place] [facility] Aug 29, 2024 10:30 AM AMBULATORY - NONE [place] [...] AM Consult Order COMMUNITY CARE-ACUTE REHAB Cons Splunk Developer's Choice [facility] Apr 06, 2024 04:04 PM Consult Order COMMUNITY CARE-ALLERGY Cons Splunk Developer's [facility] May 03, 2024 12:00 AM Laboratory - Chemi stry Order URORISK DIAGNOSTIC PROFILE(Q) 24H RENAL STONE KIT 24H URINE SP [facility] Social History: Smoking Status [...] 2024 10:15 AM VA-TOBACCO USER EVERY DAY [facility] Tobacco Use History This section includes a history of the smoking, or tobacco-related health factors, that were collected on or before the date of the Encounter. The data comes from the [place] facility where the Encounter took place. Date/Time Smoking Status/Tobacco Use Comment F acility Feb 21, 2024 10:15 AM VA-TOBACCO USE ADVICE [facility] Feb 21, 2024 10:15 AM VA-TOBACCO USE HYDROMETEOROLOGIST NO [facility] Feb 21, 2024 10:15 AM VA-TOBACCO USE MED NO [facility] Feb 21, 2024 10:15 AM VA-TOBACCO USE WI 30 MIN OF WAKEUP [facility] Feb 21, 2024 10:15 AM VA-TOBACCO USER EVERY DAY [facility] Jul 17, 2021 02:27 PM CURRENT SMOKER WHIT [facility] Jul 01, 2021 08:55 PM VA-VAAES TOBACCO U SE CURRENT NRT DECLINE [facility] Jul 01, 2021 02:41 PM CURRENT SMOKER REINIER GAYLE [facility] Dec 08, 2020 08:45 PM [...] 2024 11:00 AM RENAL AND BLADDER ULTRASOUND: EVERTGALINA CARISA [id number] -1945 M Ex Date: FEB 21, 2024@11:00 Req Phys: BRITTNEY SOTO Pat Loc: [facility] [place] G2RD (Req'g L Img Loc: ULTRASOUND (OOS) Service: [place] [facility] [place] [address] (Case 55 COMPLETE) ULTRASOUND RENAL (US Detailed) CPT:44459 Reason for Study: US following ureteral stent removal, eval hydro/stones (Case 56 COMPLETE) ULTRASOUND PELVIS (US Detailed) CPT:17515 Clinical History: Please coordinate with Urology follow up in 3 months Report Status: Verified Date Reported: FEB 21, 2024 Date Verified: FEB 21, 2024 Ob/Gyn Nurse E-Sig:/ES/BRITTNEY PEDERSEN Report: Ultrasound -- renal/bladder: COMPARISON: [...] Primary Interpreting Staff: BRITTNEY PEDERSEN, RADIOLOGY ATTENDING (Ob/Gyn Nurse) /BRITTNEY FREIRE [facility] Encounter Notes: All associated encounter notes This section contains the clinical notes associated to the Encounter. Date/Time Encounter Note(s) Provider Source Mar 21, 2024 11:16 AM ADMINISTRATIVE NOT E: LOCAL TITLE: Has Admin Note STANDARD TITLE: ADMINISTRATIVE NOTE DATE OF NOTE: MAR 21, 2024@11:16 ENTRY DATE: MAR 21, 2024@11:16:42 AUTHOR: ELSI SCHULTE EXP COSIGNER: URGENCY: STATUS: COMPLETED Reason for call Clinic Name:[id number] PACT 08 PT RTC 1st call AND Letter sent 02/29/24 Discontinued 03/21/24 PID 02/29/24 ANNUAL AND TOMMY PAPERWORK FAILURE TO RESPOND /vivian/ ELSI SCHULTE Signed: 03/21/2024 11:18 ELSI SCHULTE [facility]
--- OUTSIDE RECORDS SUMMARY | 2024-05-24 19:22 | XMS_ITS | Encounter Summary ---
Author Name [place] Address [address] [place] [address] Care Team Providers Care Sap Fico Architect Name Role Phone KYRA VELASQUEZ Primary Care [...] Ervin's Name Patient's Relationship to Policy Ervin [facility] (WNR) MEDICARE ADVANTAGE MCR(W NR) * Aug 23, 2023 [id number] ANNALISA LOYD ITE PATIENT [facility] (WNR) MEDICARE ADVANTAGE [facility] (WNR) Aug 23, 2020 [id number] [phone] ANNALISA LOYD ITE PATIENT [facility] (WNR) MEDICARE ADVANTAGE MCR(W NR) Aug 23, 2012 [id number] ANNALISA LOYD ITE PATIENT Selected Encounter This section includes the information on record at [place] for the Encounter. Date/Time Encounter Type Encounter Description Reason Pro vider Source Mar 27, 2024 10:16 AM Outpatient Encounter ADMIN PAT ACTIVTIES (MASNONCT) IHE Encounter Template Text not used by [place] Plan of Treatment: Future Appointments (+ 6 months) and Future Tests (+/- 45 days) The Plan of Treatment section includes future care activities for the patient from all [place] treatmentfacilities. This section includes future appointments and future orders which are active, pending or scheduled. Future Appointments This section includes appointments that were scheduled to occur 6 months from the date of the Encounter, up to a maximum of 20 appointments. The data comes from all [place] treatment facilities. Appointment Date/Time Appointment Type Appointme nt Facility Name Apr 06, 2024 01:00 PM AMBULATORY - NONE [place] [facility] Apr 06, 2024 01:00 PM AMBULATORY - MEDICINE [facility] Apr 10, 2024 01:30 PM [...] AMBULATORY - [place]IC[place] [facility] May 04, 2024 11:00 AM [place] [facility] May 04, 2024 12:30 PM AMBULATORY - NONE [place] [facility] May 04, 2024 01:00 PM [place] [facility] May 08, 2024 02:30 PM AMBULATORY - MEDICINE [facility] May 08, 2024 02:31 PM AMBULATORY - NONE [place] [facility] May 16, 2024 10:00 AM AMBULATORY - SURGERY [facility] May 16, 2024 10:01 AM [place] [facility] May 19, 2024 08:00 AM AMBULATORY - NONE [place] [facility] May 26, 2024 10:00 AM AMBULATORY - NONE [place] [facility] Jun 15, 2024 09:00 AM AMBULATORY - NONE [place] [facility] Aug 29, 2024 10:30 AM AMBULATORY - NONE [facility] [...] of theEncounter. The data comes from all [place] treatment facilities. Test Date/Time Test Type Test Details Facility Name Mar 17, 2024 11:23 AM Consult Order COMMUNITY CARE-ACUTE REHAB Cons Material Reprocessing Associate's Choice [facility] Apr 06, 2024 04:04 PM Consult Order COMMUNITY CARE-ALLERGY Cons Material Reprocessing Associate's [facility] May 03, 2024 12:00 AM Laboratory - Chemi stry Order URORISK DIAGNOSTIC PROFILE(Q) 24H RENAL STONE KIT 24H URINE SP [facility] Social History: Smoking Status (Most current) and Tobacco Use (All prior to encounter date) This section includes the most current, and the historical, smoking and tobacco- related health factors from the [place] facility where the Encounter took place. Current Smoking Status This section includes the most current smoking, or tobacco-related health factor, from the [place] facility where the Encounter took place. Date/Time Current Smoking Status Comment Facil ity Feb 21, 2024 10:15 AM VA-TOBACCO USER EVERY DAY [facility] Tobacco Use History This section includes a history of the smoking, or tobacco-related health factors, that were collected on or before the date of the Encounter. The data comes from the [place] facility where the Encounter took place. Date/Time Smoking Status/Tobacco Use Comment F acility Feb 21, 2024 10:15 AM VA-TOBACCO USE ADVICE [facility] Feb 21, 2024 10:15 AM VA-TOBACCO USE MEDICATION COORDINATOR NO [facility] Feb 21, 2024 10:15 AM VA-TOBACCO USE MED NO [facility] Feb 21, 2024 10:15 AM VA-TOBACCO USE WI 30 MIN OF WAKEUP [facility] Feb 21, 2024 10:15 AM VA-TOBACCO USER EVERY DAY [facility] Jul 17, 2021 02:27 PM [address] SMOKER WHIT [facility] Jul 01, 2021 08:55 PM VA-VAAES TOBACCO U SE CURRENT NRT DECLINE [facility] Jul 01, 2021 02:41 PM CURRENT SMOKER REINIER GAYLE [facility] Dec 08, 2020 08:45 PM VA-TOBACCO USER EVERY DAY [facility] Dec 08, 2020 08:45 PM VA-VAAES TOBACCO U SE CURRENT NRT DECLINE [facility] Dec 08, 2020 06:58 PM VA-TOBACCO FORMER USER [facility] Apr 04, 2015 03:47 PM CURRENT SMOKER Less than a pack a day [facility] Apr 04, 2015 03:47 PM V1-PT NOT INTEREST ED IN QUIT TOBACCO USE [facility] Advance Directives: All historical and current Section Date Range: From patient's date of to the date document was created. This section includes ALL of a patient's completed or amended [place] Advance and Rescinded Directives. The entries below indicate that a directive exists for the patient, but an actual copy is not included with this document. The data comes from all [place] facilities. Date Advance Directives Provider Source Nov 18, 2017 ADVANCE DIRECTIVE REBECCARADHA S [facility] Jul 08, 2017 ADVANCE DIRECTIVE DISCUSSION PURNIMA ROJAS [facility] Encounter Notes: All associated encounter notes This section contains the clinical notes associated to the Encounter. Date/Time Encounter Note(s) Provider Source Mar 27, 2024 10:16 AM ADMINISTRATIVE NOT E: LOCAL TITLE: CCC: SCHEDULING ADMINISTRATION STANDARD TITLE: ADMINISTRATIVE NOTE DATE OF NOTE: MAR 27, 2024@10:16:14 ENTRY DATE: MAR 27, 2024@10:16:14 AUTHOR: KELI SHEFFIELD COSIGNER: URGENCY: STATUS: COMPLETED Patient Demographics Patient Name: GALINA LOYD Patient Primary Phone: [phone] Patient Primary Address: [address] [place] [id number] Patient : 1945 Patient Age: 78 Caller/Recipient Relation to Patient: Other If Other Describe Relation to Patient: Daughter Caller Name: Bertha Administrative Administrative Note Reason: Other Administrative Note Comments: 's daughter Bertha would like a call back from [facility] social research assistant at [phone] to discuss correction care options for upon the need. [place] is currently in rehab and will be discharged on 03/31 and rehab will be discharging [place] with home health services but daughter is concerned will not follow through with services. Please call to discuss /vivian/ KELI LOPEZ 1 [facility] Signed: 03/27/2024 10:16 Receipt Acknowledged By: 03/27/2024 10:24 /es/ JENIFER SAHNE LPN 03/27/2024 11:40 /es/ EFRAÍN VALIENTE for OJ GIL * AWAITING SIGNATURE * PILAR THAYER * AWAITING SIGNATURE * DAMARIS COCHRAN JASMINE L [place] [facility]
--- OUTSIDE RECORDS SUMMARY | 2024-05-24 19:22 | XMS_ITS ---
Author Name [place] Organization [place] Address [address] [place] [address] Care Team Providers Care Mash Filter Cloth Changer Name Role Phone KYRA VELASQUEZ Primary Care [...] Ervin's Name Patient's Relationship to Policy Ervin [facility] (WNR) MEDICARE ADVANTAGE MCR(W NR) * Aug 23, 2023 [id number] [phone] ANNALISA LOYD ITE PATIENT [facility] (WNR) MEDICARE ADVANTAGE [facility] (WNR) Aug 23, 2020 [id number] [phone] ANNALISA LOYD ITE PATIENT [facility] (WNR) MEDICARE ADVANTAGE MCR(W NR) Aug 23, 2012 [id number] [phone] ANNALISA LOYD ITE PATIENT Selected Encounter This section includes the information on record at [place] for the Encounter. Date/Time Encounter Type Encounter Description Reason Pro vider Source Feb 26, 2024 12:00 PM Outpatient Encounter ADMIN PAT [...] AMBULATORY - NONE [place] [facility] Apr 06, 2024 01:00 PM AMBULATORY - NONE [place] [facility] Apr 06, 2024 01:00 PM AMBULATORY - MEDICINE [facility] Apr 10, 2024 01:30 PM AMBULATORY - MEDICINE [facility] Apr 10, 2024 01:31 PM AMBULATORY - NONE [place] [facility] Apr 11, 2024 10:00 AM AMBULATORY - SURGERY [facility] Apr 11, 2024 10:01 AM [place] [facility] Apr 21, 2024 10:30 AM AMBULATORY - NONE [place] [facility] May 03, 2024 02:30 PM AM[place]ORY [place] [facility] May 04, 2024 10:30 AM AMBULATORY [place]ICINE [place] [facility] May 04, 2024 11:00 AM AMBULATORY [place] [facility] May 04, 2024 12:30 PM AMBULATORY - NONE [place] [facility] May 04, 2024 01:00 PM AMBULATORY [place] [facility] May 08, 2024 02:30 PM AMBULATORY - MEDICINE [facility] May 08, 2024 02:31 PM AMBULATORY - NONE [place] [facility] May 16, 2024 10:00 AM AMBULATORY - SURGERY [facility] May 16, 2024 10:01 AM AMBULATORY [place] [facility] May 19, 2024 08:00 AM AMBULATORY - NONE [place] [facility] May 26, 2024 10:00 AM AMBULATORY - NONE [place] [facility] Jun 15, 2024 09:00 AM AMBULATORY - NONE [facility] Active, Pending, and [...] of theEncounter. The data comes from all [place] treatment facilities. Test Date/Time Test Type Test Details Facility Name January 18, 2024 12:13 PM Consult Order COMMUNITY CARE-NEUROLOGY Cons Steel Floor Pan Placing Supervisor's [facility] Mar 17, 2024 11:23 AM Consult Order COMMUNITY CARE-ACUTE REHAB Cons Steel Floor Pan Placing Supervisors [facility] Apr 06, 2024 04:04 PM Consult Order COMMUNITY CARE-ALLERGY [facility] Steel [facility] Social History: Smoking Status (Most current) [...] 2024 10:15 AM VA-TOBACCO USER EVERY DAY [facility] Tobacco Use History This section includes a history of the smoking, or tobacco-related health factors, that were collected on or before the date of the Encounter. The data comes from the [place] facility where the Encounter took place. Date/Time Smoking Status/Tobacco Use Comment F acility Feb 21, 2024 10:15 AM VA-TOBACCO USE ADVICE [facility] Feb 21, 2024 10:15 AM VA-TOBACCO USE SIGNAL MECHANIC NO [facility] Feb 21, 2024 10:15 AM VA-TOBACCO USE MED NO [facility] Feb 21, 2024 10:15 AM VA-TOBACCO USE WI 30 MIN OF WAKEUP [facility] Feb 21, 2024 10:15 AM VA-TOBACCO USER EVERY DAY [facility] Jul 17, 2021 02:27 PM CURRENT SMOKER WHIT [facility] Jul 01, 2021 08:55 PM VA-VAAES TOBACCO U SE CURRENT NRT DECLINE [facility] Jul 01, 2021 02:41 PM CURRENT SMOKER REINIER GAYLE [facility] Dec 08, 2020 08:45 PM VA-TOBACCO [...] RENAL AND BLADDER ULTRASOUND: EVELYN LOYDE CARISA [id number] -1945 M Ex Date: FEB 21, 2024@11:00 Req Phys: BRITTNEY SOTO Loc: [facility] G2RD (Req'g L Img Loc: ULTRASOUND (OOS) Service: [place] [facility] [address] (Case 55 COMPLETE) ULTRASOUND RENAL (US Detailed) CPT:10885 Reason for Study: US following ureteral stent removal, eval hydro/stones (Case 56 COMPLETE) ULTRASOUND PELVIS (US Detailed) CPT:82088 Clinical History: Please coordinate with Urology follow up in 3 months Report Status: Verified Date Reported: FEB 21, 2024 Date Verified: FEB 21, 2024 Molded Frames Assembler E-Sig:/PARIS/BRITTNEY PEDERSEN Report: Ultrasound -- renal/bladder: COMPARISON: [...] Primary Interpreting Staff: BRITTNEY PEDERSEN, RADIOLOGY ATTENDING (Molded Frames Assembler) /BRITTNEY FREIRE [facility] Encounter Notes: All associated encounter notes This section contains the clinical notes associated to the Encounter. Date/Time Encounter Note(s) Provider Source Feb 26, 2024 12:00 PM NONVA NOTE: LOCAL TITLE: NonVA Medical Records STANDARD TITLE: NONVA NOTE DATE OF NOTE: FEB 26, 2024@12:00 ENTRY DATE: MAR 01, 2024@11:06:54 AUTHOR: ETIENNE WOOD EXP COSIGNER: URGENCY: STATUS: COMPLETED Vist[facility] Imaging - Scanned Document Date of Service (Procedure/Event): 02/26/2024 Note Title: NonVA Medical Records Type: PROCEDURE RECORD/REPORT Specialty: ORTHOPEDICS ORTHOPEDIC CONSULT AND OPERATIVE NOTES-LEFT HIP [facility] SCANNED DOCUMENT SIGNATURE NOT REQUIRED Electronically Filed: 03/01/2024 by: ETIENNE MCCORMACK [facility]
--- OUTSIDE RECORDS SUMMARY | 2024-05-24 19:22 | XMS_ITS ---
Author Name [place] Address [address] [place] [address] Care Team Providers Care Pump Installer Name Role Phone KYRA VELASQUEZ Primary Care [...] Name Patient's Relationship to Policy Ervin [facility] (WNR) MEDICARE ADVANTAGE MCR(W NR) * Aug 23, 2023 [id number] [phone] ANNALISA LOYD ITE PATIENT [facility] (WNR) MEDICARE ADVANTAGE [facility] (WNR) Aug 23, 2020 [id number] [phone] ANNALISA LOYD ITE PATIENT [facility] (WNR) MEDICARE ADVANTAGE MCR(W NR) Aug 23, 2012 [id number] ANNALISA LOYD ITE PATIENT Selected Encounter This section includes the information on record at [place] for the Encounter. Date/Time Encounter Type Encounter Description Reason Pro vider Source Apr 01, 2024 11:33 AM Outpatient Encounter ADMIN PAT ACTIVTIES (MASNONCT) IHE Encounter Template Text not used by [place] Plan of Treatment: Future Appointments (+ 6 months) and Future Tests (+/- 45 days) The Plan of Treatment section includes future care activities for the patient from all [place] treatmentfacilities. This section includes future appointments and [...] AMBULATORY - NONE [place] [facility] Apr 06, 2024 01:00 PM AMBULATORY - MEDICINE [facility] Apr 10, 2024 01:30 PM AMBULATORY - MEDICINE [facility] Apr 10, 2024 01:31 PM AMBULATORY - NONE [place] [facility] Apr 11, 2024 10:00 AM AMBULATORY - SURGERY [facility] Apr 11, 2024 10:01 AM [place]UL[place] [facility] Apr 21, 2024 10:30 AM AMBULATORY - NONE [place] [facility] May 03, 2024 02:30 PM [place]BUL[place]ORY [place] [facility] May 04, 2024 10:30 AM [place]ORY [place]IC[place] [facility] May 04, 2024 11:00 AM [place]BULATORY [place] [facility] May 04, 2024 12:30 PM AMBULATORY - NONE [place] [facility] May 04, 2024 01:00 PM AMBULATORY [place] [facility] May 08, 2024 02:30 PM AMBULATORY - MEDICINE [facility] May 08, 2024 02:31 PM AMBULATORY - NONE [place] [facility] May 16, 2024 10:00 AM AMBULATORY - SURGERY [facility] May 16, 2024 10:01 AM AMBUL[place]ORY [place] [facility] May 19, 2024 08:00 AM AMBULATORY - NONE [place] [facility] May 26, 2024 10:00 AM AMBULATORY - NONE [place] [facility] Jun 15, 2024 09:00 AM AMBULATORY - NONE [place] [facility] Aug 29, 2024 10:30 AM AMBULATORY - NONE [facility] Active, Pending, and Scheduled Orders [...] AM Consult Order COMMUNITY CARE-ACUTE REHAB Cons 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 The data comes from the [place] facility where the Encounter took place. Date/Time Smoking Status/Tobacco Use Comment F acility Feb 21, 2024 10:15 AM VA-TOBACCO USE ADVICE [facility] Feb 21, 2024 10:15 AM VA-TOBACCO USE MANAGER LINUX NO [facility] Feb 21, 2024 10:15 AM VA-TOBACCO USE MED NO [facility] Feb 21, 2024 10:15 AM VA-TOBACCO USE WI 30 MIN OF WAKEUP [facility] Feb 21, 2024 10:15 AM VA-TOBACCO USER EVERY DAY [facility] Jul 17, 2021 02:27 PM CURRENT SMOKER WHIT [facility] Jul 01, 2021 08:55 PM VA-VAAES TOBACCO U SE CURRENT NRT DECLINE [facility] G[facility] Jul 01, 2021 02:41 PM CURRENT SMOKER REINIER GAYLE [facility] Dec 08, 2020 08:45 PM VA-TOBACCO USER EVERY DAY SONYA GAYLE [facility] Dec 08, 2020 08:45 PM VA-VAAES TOBACCO U SE CURRENT NRT DECLINE SONYA [facility]AY[facility] Dec 08, 2020 06:58 PM VA-TOBACCO FORMER USER SONYA [facility] Apr 04, 2015 03:47 PM CURRENT SMOKER Less than a pack a day S[facility] Apr 04, 2015 [...] 18, 2017 ADVANCE DIRECTIVE RADHA FERNANDEZ SON[facility] Jul 08, 2017 ADVANCE DIRECTIVE DISCUSSION PURNIMA ROJAS [facility] Encounter Notes: All associated encounter notes This section contains the clinical notes associated to the Encounter. Date/Time Encounter Note(s) Provider Source Apr 01, 2024 11:33 AM ADMINISTRATIVE NOT E: LOCAL TITLE: [facility]: SCHEDULING ADMINISTRATION STANDARD TITLE: ADMINISTRATIVE NOTE DATE OF NOTE: APR 01, 2024@11:33 ENTRY DATE: APR 01, 2024@11:33:46 AUTHOR: GHULAM LEVINE EXP COSIGNER: URGENCY: STATUS: COMPLETED Verify Patient Demographics; Successfully verified patient demographics Other/General comments: Vet is admitted to home health care with [facility]. Vet is admitted for wound care for left buttocks and left shoulder. Contact . /vivian/ GHULAM LEVINE V2 CCC AMSA Signed: 04/01/2024 11:35 Receipt Acknowledged By: 04/03/2024 08:32 /es/ JENIFER SHANE LPN for OJ A [facility]AM [facility]
--- OUTSIDE RECORDS SUMMARY | 2024-05-24 19:22 | XMS_ITS ---
Author Name [place] Address [address] [place] [address] Care Team Providers Care Counter Clerk [employer] Name Role Phone RON KYRA Primary Care [...] Ervin's Name Patient's Relationship to Policy Ervin [facility] (WNR) MEDICARE ADVANTAGE [facility](W NR) * Aug 23, 2023 [id number] ANNALISA LOYD ITE PATIENT [facility] MCR (WNR) MEDICARE ADVANTAGE [facility] (WNR) Aug 23, 2020 [id number] [phone] ANNALISA LOYD ITE PATIENT [facility] (WNR) MEDICARE ADVANTAGE [facility](W NR) Aug 23, 2012 [id number] ANNALISA LOYD ITE PATIENT Selected Encounter This section includes the information on record at [place] for the Encounter. Date/Time Encounter Type Encounter Description Reason Pro vider Source Mar 15, 2024 12:00 PM Outpatient Encounter COMMUNITY CARE CONSULT IHE Encounter Template Text not used by VA Plan of Treatment: Future Appointments (+ 6 months) and Future Tests (+/- 45 days) The Plan of Treatment section includes future care activities for the patient from all [place] treatmentfacilities. This section includes future appointments and future orders which are active, pending or scheduled. Future Appointments This section includes appointments that were scheduled to occur 6 months from the date of the Encounter, up to a maximum of 20 appointments. The data comes from all [place] treatment facilities. Appointment Date/Time Appointment Type Appointme nt Facility Name Mar 18, 2024 12:01 AM AMBULATORY - NONE [place] [facility] Apr 06, 2024 01:00 PM AMBULATORY - NONE [place] [facility] Apr 06, 2024 01:00 PM AMBULATORY - MEDICINE [facility] Apr 10, 2024 01:30 PM AMBULATORY - MEDICINE [facility] Apr 10, 2024 01:31 PM AMBULATORY - NONE [place] [facility] Apr 11, 2024 10:00 AM AMBULATORY - SURGERY [facility] Apr 11, 2024 10:01 AM [place]UL[place] [facility] Apr 21, 2024 10:30 AM AMBULATORY - NONE [place] [facility] May 03, 2024 02:30 PM AMBULATORY [place] [facility] May 04, 2024 10:30 AM [place]UL[place]ORY [place]IC[place] [facility] May 04, 2024 11:00 AM AMBULATORY [place] [facility] May 04, 2024 12:30 PM AMBULATORY - NONE [place] [facility] May 04, 2024 01:00 PM AMBULATORY [place]GERY [place] [facility] May 08, 2024 02:30 PM AMBULATORY - MEDICINE [facility] May 08, 2024 02:31 PM AMBULATORY - NONE [place] [facility] May 16, 2024 10:00 AM AMBULATORY - SURGERY [facility] May 16, 2024 10:01 AM AMBULATORY [place] [facility] May 19, 2024 08:00 AM AMBULATORY - NONE [place] [facility] May 26, 2024 10:00 AM AMBULATORY - NONE [place] [facility] Jun 15, 2024 09:00 AM AMBULATORY - [...] of theEncounter. The data comes from all [place] treatment facilities. Test Date/Time Test Type Test Details Facility Name Mar 17, 2024 11:23 AM Consult Order COMMUNITY CARE-ACUTE REHAB Cons Mobile Home Installer's Choice [facility] Apr 06, 2024 04:04 PM Consult Order COMMUNITY CARE-ALLERGY Cons Mobile Home Installers [facility] Social History: Smoking Status (Most current) [...] 2024 10:15 AM VA-TOBACCO USER EVERY DAY [facility] Tobacco Use History This section includes a history of the smoking, or tobacco-related health factors, that were collected on or before the date of the Encounter. The data comes from the [place] facility where the Encounter took place. Date/Time Smoking Status/Tobacco Use Comment F acility Feb 21, 2024 10:15 AM VA-TOBACCO USE ADVICE [facility] Feb 21, 2024 10:15 AM VA-TOBACCO USE SPANISH INTERPRETER NO [facility] Feb 21, 2024 10:15 AM VA-TOBACCO USE MED NO [facility] Feb 21, 2024 10:15 AM VA-TOBACCO USE WI 30 MIN OF WAKEUP [facility] Feb 21, 2024 10:15 AM VA-TOBACCO USER EVERY DAY [facility] Jul 17, 2021 02:27 PM CURRENT SMOKER REINIER Bhatia [facility] Jul 01, 2021 08:55 PM VA-VAAES [...] the Encounter. The data comes from all [place] treatment facilities. Date/Time Radiology Report Provider Source Feb 21, 2024 11:00 AM RENAL AND BLADDER ULTRASOUND: GALINA LOYD [id number] -[id number] M Ex Date: FEB 21, 2024@11:00 Req Phys: BRITTNEY SOTO Pat Loc: [facility] [place] G2RD (Req'g L Img Loc: ULTRASOUND (OOS) Service: [place] [address] (Case [id number] COMPLETE) ULTRASOUND RENAL (US Detailed) CPT:03416 Reason for Study: US following ureteral stent removal, eval hydro/stones (Case [id number] COMPLETE) ULTRASOUND PELVIS (US Detailed) CPT:45509 Clinical History: Please coordinate with Urology follow up in 3 months Report Status: Verified Date Reported: FEB 21, 2024 Date Verified: FEB 21, 2024 Manufacturing Process Engineer E-Sig:/ES/BRITTNEY PEDERSEN Report: Ultrasound -- renal/bladder: COMPARISON: [...] PEDERSEN, RADIOLOGY ATTENDING (Miah) /BRITTNEY FREIRE [facility] Encounter Notes: All associated encounter notes This section contains the clinical notes associated to the Encounter. Date/Time Encounter Note(s) Provider Source Mar 15, 2024 12:00 PM NONVA NOTE: LOCAL TITLE: NonVA Note STANDARD TITLE: NONVA NOTE DATE OF NOTE: MAR 15, 2024@12:00 ENTRY DATE: MAR 20, 2024@13:12:20 AUTHOR: ROXANNE ALLEN COSIGNER: URGENCY: STATUS: COMPLETED VistA Imaging - Scanned Document Community Care - Acute Rehab 03/15/2024 [facility] N Adv - Skilled Evaluation Vitals SCANNED DOCUMENT SIGNATURE NOT REQUIRED Electronically Filed: 03/20/2024 by: ROXANNE VALLEJO [facility]
--- OUTSIDE RECORDS SUMMARY | 2024-05-24 19:22 | XMS_ITS | Encounter Summary ---
Author Name [place] Address [address] [place] [address] Care Team Providers Care Steel Sash Erector Name Role Phone RON KYRA Primary Care [...] Ervin's Name Patient's Relationship to Policy Ervin [facility] (WNR) MEDICARE ADVANTAGE [facility](W NR) * Aug 23, 2023 [id number] ANNALISA LOYD ITE PATIENT [facility] MCR (WNR) MEDICARE ADVANTAGE MCR (WNR) Aug 23, 2020 [id number] [phone] ANNALISA LOYD ITE PATIENT [facility] (WNR) MEDICARE ADVANTAGE [facility](W NR) Aug 23, 2012 [id number] 03 ANNALISA LOYD ITE PATIENT Selected Encounter This section includes the information on record at [place] for the Encounter. Date/Time Encounter Type Encounter Description Reason Pro vider Source Apr 07, 2024 08:07 AM Outpatient Encounter EVENT (HISTORICAL) IHE Encounter Template Text not used by VA Plan of Treatment: Future Appointments (+ 6 months) and Future Tests (+/- 45 days) The Plan of Treatment section includes future care activities for the patient from all [place] [facility] This section includes future appointments and future orders which are active, pending or scheduled. Future Appointments This section includes appointments that were scheduled to occur 6 months from the date of the Encounter, up to a maximum of 20 appointments. The data comes from all [place] treatment facilities. Appointment Date/Time Appointment Type Appointme nt Facility Name Apr 10, 2024 01:30 PM AMBULATORY - [...] SURG[place] [facility] May 19, 2024 08:00 AM AMBULATORY - NONE [place] [facility] May 26, 2024 10:00 AM AMBULATORY - NONE [place] [facility] Jun 15, 2024 09:00 AM AMBULATORY - NONE [place] [facility] Aug 29, 2024 10:30 AM AMBULATORY - NONE [place] [facility] Aug 29, 2024 11:15 AM AMBULATORY - [place] [facility] Active, Pending, and Scheduled Orders This [...] AM Consult Order COMMUNITY CARE-ACUTE REHAB Cons [employer]ing Center Manager's [facility] Apr 06, 2024 04:04 PM Consult Order COMMUNITY CARE-ALLERGY [facility] May 03, 2024 12:00 AM Laboratory - Chemi stry Order URORISK DIAGNOSTIC PROFILE(Q) 24H RENAL STONE KIT 24H URINE SP [facility] May 17, 2024 02:27 PM Consult Order CAREGIVER SUPPORT PROGRAM OUTPT Cons [employer] [facility] Manager's [facility] May 19, 2024 12:44 PM Consult Order COMMUNITY CARE-PALLIATIVE CARE [facility] Banking Center Manager's [facility] Lab Results: +/- 30 days of the encounter This section includes the Chemistry and Hematology Lab Results on record with [place] for the patient. Radiology Reports and Pathology Reports are provided separately, in subsequent sections. Lab Results This section contains the Chemistry/Hematology Results that were resulted 30 days before or 30 daysafter the date of the Encounter. Date/Time Source Result Type Result - Unit Interpretation Reference Range Comment May 04, 2024 10:32 AM [facility] UREA NITROGEN Specimen Type: PLASMA Comment: , Tests performed on Nolio Moses [id number] (405) Ordering Provider: DAVID FAM Report Released Date/Time: Nov 15, 2023 11:30 AM Reporting Lab[facility] [address] [place] [address] Performing Lab: [facility] [address] [place] [place] [address] UREA NITROGEN 10 mg/dL 03-16May 04, 2024 10:32 AM [facility] CREATININE WITH eGFR PANEL Specimen Type: PLASMA Comment: , Tests performed on Nolio Lopes [id number] (405) Ordering Provider: DAVID FAM Report Released Date/Time: Nov 15, 2023 11:30 AM Reporting Lab: [facility] [address] [facility] [address] Performing Lab: [facility] [address] [address] CREATININE 0.91 mg/dL 0.50-1.50 eGFR(CKD-EPI 2020) 86 [...] 2024 10:15 AM VA-TOBACCO USER EVERY DAY [facility] Tobacco Use History This section includes a history of the smoking, or tobacco-related health factors, that were collected on or before the date of the Encounter. The data comes from the [place] facility where the Encounter took place. Date/Time Smoking Status/Tobacco Use Comment F acility Feb 21, 2024 10:15 AM VA-TOBACCO USE ADVICE [facility] Feb 21, 2024 10:15 AM VA-TOBACCO USE STERILE INSTRUMENT TECHNICIAN NO [facility] Feb 21, 2024 10:15 AM VA-TOBACCO USE MED NO [facility] Feb 21, 2024 10:15 AM VA-TOBACCO USE WI 30 MIN OF WAKEUP [facility] Feb 21, 2024 10:15 AM VA-TOBACCO USER EVERY DAY [facility] Jul 17, 2021 02:27 PM CURRENT SMOKER REINIER GAYLE [facility] Jul 01, 2021 08:55 PM VA-VAAES TOBACCO U SE CURRENT NRT DECLINE [facility] Jul 01, 2021 02:41 PM CURRENT SMOKER REINIER [place]hat[place] [facility] Dec 08, 2020 08:45 PM VA-TOBACCO USER EVERY DAY [facility] Dec 08, 2020 08:45 PM VA-VAAES TOBACCO U SE CURRENT NRT DECLINE [facility] Dec 08, 2020 06:58 PM VA-TOBACCO FORMER USER SONYA [facility] Apr 04, 2015 [...] the Encounter. The data comes from all [place] treatment facilities. Date/Time Radiology Report Provider Source May 04, 2024 12:30 PM CTA ABDOMEN AND PE LVIS: GALINA LOYD [id number] -1945 M Exm Date: MAY 04, 2024@12:30 Req Phys: VIMAL FAM Pat Loc: [facility] VASCULAR 15 M3RH (Req'g Lo Img Loc: CT SCAN (OOS) Service: Unknown [facility] [place] [address] (Case [id number] COMPLETE) CTA ABDOMEN AND PELVIS (CT Detailed) CPT:77992 Contrast Media : Non-ionic Iodinated Reason for [...] 05, 2024 Date Verified: MAY 05, 2024 Metal Sprayer Protective Coating E-Sig:/ES/NÉSTOR PASCUAL Report: CTA ABDOMEN AND PELVIS [...] REQUIRED Primary Interpreting Staff: NÉSTOR PASCUAL, RADIOLOGIST (Metal Sprayer Protective Coating) /NÉSTOR [facility] Encounter Notes: All associated encounter notes This section contains the clinical notes associated to the Encounter. Date/Time Encounter Note(s) Provider Source Apr 07, 2024 08:07 AM ALLERGY & IMMUNOLO GY ADVERSE EVENT NOTE: LOCAL TITLE: ADVERSE REACT/ALLERGY STANDARD TITLE: ALLERGY & IMMUNOLOGY ADVERSE EVENT NOTE DATE OF NOTE: APR 07, 2024@08:07:29 ENTRY DATE: APR 07, 2024@08:07:29 AUTHOR: LAINE LUA EXP COSIGNER: URGENCY: STATUS: COMPLETED This patient has had the following reactions signed-off on Apr 07, 2024@08:07:29. ANCEF INJECTION /es/ Laine Lua DNP, GLENN, RN-[facility] Clinical Manager Competitive Intelligence Signed: 04/07/2024 08:17 Receipt Acknowledged By: 04/07/2024 08:27 /es/ KYRA VELASQUEZ M.D INTERNAL MEDICINE, [facility] [employer] LAINE LUA [facility]
--- OUTSIDE RECORDS SUMMARY | 2024-05-24 19:22 | XMS_ITS | Encounter Summary ---
Author Name [facility] [place] Organization [facility] [place] Address [address] [place] [address] Care Team Providers Care Analytical Scientist Name Role Phone KYRA VELASQUEZ Primary Care [...] [facility] (WNR) MEDICARE [facility](W NR) * Aug 23, 2023 [id number] ANNALISA LOYD ITE PATIENT [facility] (WNR) MEDICARE ADVANTAGE [facility] (WNR) Aug 23, 2020 [id number] [phone] ANNALISA LOYD ITE PATIENT [facility] (WNR) MEDICARE [facility](W NR) Aug 23, 2012 [id number] ANNALISA LOYD ITE PATIENT Selected Encounter This section includes the information on record at [place] for the Encounter. Date/Time Encounter Type Encounter Description Reason Provider Source Apr 06, 2024 01:00 PM OFFICE O/P EST MOD 30 MIN PRIMARY CARE/MEDICINE ICD-10-CM L89.890 Pressure ulcer of other site, unstageable KYRA VELASQUEZ Jannette Encounter Template Text not used by [place] Assessments - Encounter Diagnoses This section includes the primary and secondary diagnoses documented for the Encounter. 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[employer] [facility] Apr 06, 2024 04:04 PM Consult Order COMMUNITY CARE-ALLERGY Cons [employer] [facility] May 03, 2024 12:00 AM Laboratory - Chemi stry Order URORISK DIAGNOSTIC PROFILE(Q) 24H RENAL STONE KIT 24H URINE SP [facility] May 17, 2024 02:27 PM Consult Order CAREGIVER SUPPORT PROGRAM OUTPT Cons 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 [employer]ractor 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[employer] [facility] May 19, 2024 12:44 PM Consult Order COMMUNITY CARE-PALLIATIVE CARE Cons [employer] [facility] Lab Results: +/- [...] Range Comment May 04, 2024 10:32 AM [facility] UREA NITROGEN Specimen Type: PLASMA Comment: , Tests performed on [employer] Lopes SN:[id number] (405) Ordering Provider: DAVID FAM Report Released Date/Time: Nov 15, 2023 11:30 AM Reporting Lab: [facility] [address] [address] Performing Lab: [facility] [address] [address] UREA NITROGEN 10 mg/dL 03-16May 04, 2024 10:32 AM [facility] CREATININE WITH eGFR PANEL Specimen Type: PLASMA Comment: , Tests performed on [employer] Lopes SN:[id number] (405) Ordering Provider: DAVID FAM Report Released Date/Time: Nov 15, 2023 11:30 AM Reporting Lab: [facility] [address] [address] Performing Lab: [facility] [address] [facility] [address] CREATININE 0.91 mg/dL 0.50-1.50 eGFR(CKD-EPI 2020) 86 [...] Date/Time Current Smoking Status Comment Nataly ity May 14, 2022 09:30 AM VA-TOBACCO USER EVERY DAY [facility] Tobacco Use History This section includes a history of the smoking, or tobacco-related health factors, that were collected on or before the date of the Encounter. The data comes from the [place] facility where the Encounter took place. Date/Time Smoking Status/Tobacco Use Comment F acility May 14, 2022 09:30 AM VA-TOBACCO USE ADVICE [facility] May 14, 2022 09:30 AM VA-TOBACCO USE AED TRAINER NO [facility] May 14, 2022 09:30 AM VA-TOBACCO USE MED NO [facility] May 14, 2022 09:30 AM VA-TOBACCO USE WI 30 MIN OF WAKE UP [facility] May 14, 2022 09:30 AM VA-TOBACCO USER EVERY DAY [facility] Jun 27, 2020 09:30 AM VA-TOBACCO FORMER USER [facility] Jun 27, 2020 09:30 AM VA-TOBACCO QUIT < 1 YEAR [facility] December 28, 2018 11:23 AM VA-TOBACCO USE 30 YEARS OR MORE [facility] December 28, 2018 11:23 AM VA-TOBACCO USE ADVICE [facility] December 28, 2018 11:23 AM VA-TOBACCO USE AED TRAINER NO [facility] December 28, 2018 11:23 AM VA-TOBACCO USE MED NO [facility] December 28, 2018 11:23 AM VA-TOBACCO USE WI 30 MIN OF WAKE UP [facility] December 28, 2018 11:23 AM VA-TOBACCO USER EVERY DAY [facility] Aug 10, 2016 09:05 AM CURRENT SMOKER [facility] Aug 10, 2016 09:05 AM V1-PT [...] CTA ABDOMEN AND PE LVIS: GALINA LOYD [id number] -[id number] M Exm Date: MAY 04, 2024@12:30 Req Phys: VIMAL FAM Pat Loc: [facility] 15 M3RH (Req'g Lo Img Loc: CT SCAN (OOS) Service: Unknown [facility] [place] [address] (Case [id number] COMPLETE) CTA ABDOMEN AND PELVIS (CT Detailed) CPT:18953 Contrast Media : Non-ionic Iodinated Reason for [...] 05, 2024 Date Verified: MAY 05, 2024 Grocery Associate E-Sig:/ES/NÉSTOR PASCUAL Report: CTA ABDOMEN AND PELVIS [...] REQUIRED Primary Interpreting Staff: NÉSTOR PASCUAL, RADIOLOGIST (Grocery Associate) /NÉSTOR CONNER [facility] Encounter Notes: All associated encounter notes This section contains the clinical notes associated to the Encounter. Date/Time Encounter Note(s) Provider Source Apr 07, 2024 08:18 AM NONVA NOTE: LOCAL TITLE: COMMUNITY CARE-CARE COORDINATION PLAN NOTE STANDARD TITLE: NONVA NOTE DATE OF NOTE: APR 07, 2024@08:18 ENTRY DATE: APR 07, 2024@08:18:28 AUTHOR: LAINE LUA EXP COSIGNER: URGENCY: STATUS: COMPLETED COMMUNITY CARE-CARE COORDINATION PLAN NOTE Has ADDENDA Community Care Consult: Community Care-Allergy Consult No: [id number] [facility] Referral #: [id number] Chief Complaint, as noted on entered consult: anaphylactic reaction causing severe hypotension 03/15 hospitalization nvrh to ancef/rocuronium infusion.rec outpt allergy eval Provider Name: [facility] Community Care Office Contact: Care Coordination Point of Contact: Admitted? no Level of Care Coordination Complex Care Coordination was determined from: Chart Review and consult tool box calculations Plan: 1. Support initial pending consult processing by aMSA 2. Advanced MSA to contact confirming provider preference, further instructions, and authorization. 3. Referral documents: Please include the following medical information for continuity of care: Documents: Apr 06, 2024 Primary Care Visit Note Allergy List Medication List Problem List Labs: Feb 11 All 4. Will remain available for care/resource coordination prn. This CC allergy consult will 365 days from first appointment date. /vivian/ Laine Lua DNP, MSA, RN-BC [facility] Clinical Street Light Servicer Supervisor Signed: 04/07/2024 08:23 Receipt Acknowledged By: 04/14/2024 15:18 /vivian/ MICHAEL MANUEL MSA 04/07/2024 ADDENDUM STATUS: COMPLETED Added the following to alelrgy list: This patient has had the following reactions signed-off on Apr 07, 2024@08:08:58. ROCURONIUM BROMIDE This patient has had the following reactions signed-off on Apr 07, 2024@08:07:29. ANCEF INJECTION /vivian/ Laine Lua DNP, MSA, RN-BC [facility] Clinical Street Light Servicer Supervisor Signed: 04/07/2024 08:24 [facility] Apr 06, 2024 02:19 PM NONVA MEDICATION M GT NOTE: LOCAL TITLE: Prescription Slip for NonVA Pharmacy STANDARD TITLE: NONVA MEDICATION MGT NOTE DATE OF NOTE: APR 06, 2024@14:19 ENTRY DATE: APR 06, 2024@14:19:20 AUTHOR: KYRA VELASQUEZ COSIGNER: URGENCY: STATUS: COMPLETED Prescription Slip for NonVA Pharmacy Has ADDENDA [facility] [place] [address] Patient: Date: APR 06, 2024 GALINA LOYD JR [address], [place] [address] :Sep Medication: Levofloxacin 500 mg Quantity: 7 Sig: Take one tablet once daily Refills: 0 Substitution Permitted Medication: Doxycycline 100 mg Quantity: 20 Sig: Take one tablet twice daily Refills: 0 Substitution Permitted NPI #[id number] DELFINO # Mar ___ /es/ Date KYRA VELASQUEZ M.D INTERNAL MEDICINE, [facility] 04/06/2024 ADDENDUM STATUS: COMPLETED please fax to theron juarez /es/ KYRA VELASQUEZ M.D INTERNAL MEDICINE, [facility] Signed: 04/06/2024 14:20 KYRA VELASQUEZ [facility] Apr 06, 2024 01:08 PM PRIMARY CARE GURWINDERUA L EVALUATION NOTE: LOCAL TITLE: Preventive Health Annual Review STANDARD TITLE: PRIMARY CARE ANNUAL EVALUATION NOTE DATE OF NOTE: APR 06, 2024@13:08 ENTRY DATE: APR 06, 2024@13:09:02 AUTHOR: MARILYNN ELIAS EXP COSIGNER: URGENCY: STATUS: COMPLETED Suicide Screen: C-SSRS Screening [place]-Suicide Severity Rating Scale (C-SSRS Screener) 1. Over the past month, have you wished you were or wished you could go to sleep and not wake up? No 2. Over the past month, have you had any actual thoughts of killing yourself? No 3. Over the past month, have you been thinking about how you might do this? Response not required due to responses to other questions. 4. Over the past month, have you had these thoughts and had some intention of acting on them? Response not required due to responses to other questions. 5. Over the past month, have you started to work out or worked out the details of how to kill yourself? Response not required due to responses to other questions. 6. If yes, at any time in the past month did you intend to carry out this plan? Response not required due to responses to other questions. 7. In your lifetime, have you ever done anything, started to do anything, or prepared to do anything to end your life (for example, collected pills, obtained a gun, gave away valuables, went to the roof but didn't jump)? No 8. If YES, was this within the past 3 months? Response not required due to responses to other questions. COVID-19 Immunization: Refused Pfizer Monovalent COVID-19 vaccine Immunization: COVID-19 (PFIZER), MRNA, LNP-S, PF, LALITHA-SUCROSE, 30 MCG/0.3 ML (AGES 12+ YEARS) Refusal Reason: PATIENT DECISION Patient refuses all immunization(s) in the COVID-19 group Date Documented: 04/06/24 13:10 Td / Tdap Immunization: The patient declines to receive the recommended dose of Td/Tdap vaccine. Immunization: TD(ADULT) UNSPECIFIED FORMULATION Refusal Reason: PATIENT DECISION Patient refuses all immunization(s) in the Td group Date Documented: 04/06/24 13:11 Depression Screening: Perform PHQ-2 A PHQ-2 screen was performed. The score was 0 which is a negative screen for depression. Over the past two weeks, how often have you been bothered by the following problems? 1. Little interest or pleasure in doing things Not at all 2. Feeling down, depressed, or hopeless Not at all /vivian/ MARILYNN ELIAS Final Inspector Movement Assembly Signed: 04/06/2024 13:12 MARILYNN ELIAS [facility] Apr 06, 2024 12:48 PM PRIMARY CARE NOTE: LOCAL TITLE: Primary Care Clinic Note STANDARD TITLE: PRIMARY CARE NOTE DATE OF NOTE: APR 06, 2024@12:48 ENTRY DATE: APR 06, 2024@12:49 AUTHOR: KYRA VELASQUEZIGNER: URGENCY: STATUS: COMPLETED Primary Care Clinic Note Has ADDENDA PRIMARY CARE TELEMEDICINE VISIT e-911: Call [phone] to speak with an agent who can put you in touch with a caster operator at the Patient's location. You must have the physical location (address) where the Patient is currently located. \ / /\ [facility] \/ /--[place] [address] [facility] VISIT DETAILS & SECURITY: : Contact type .............. : [ ] VVC : [X] CVT : [ ] Telephone : Consent obtained .......... : [X] Consent obtained for visit type : Current location .......... : [X] [facility] : [ ] Hearne's residence : : [X] Location safe/private : Spoke with ................ : [X] Patient : [ ] Other : Patient Identifiers ....... : [X] Social Security & : Additional participants ... : [] No other participants in the room : [x ] Spouse : [ ] Son/Daughter : Emergency contact ......... : [X] Confirmed as below EVERTISABELLEMAEVE N [facility] [place], [place] [address] [address] [place] [id number] Chief complaint: Pt is a 78 year old who comes in for follow up of medical problems and was seen via CVT as noted below. HPI: 78 yo male with multiple medical problems including cva 2020, sdh, history of seizures, nephrolithiasis, h/o bl ureteral stents s/p removal, htn, tobacco use, follicular lymphoma, AAA, thoracic aortic aneurysm, etoh dependence in remission seen via cvt for pc f/u and pressure ulcers noted on the left shoulder and sacrum by his Darrel who accompanies him in clinic today. last pc visit 02/12 dr alexander. He was admitted to [facility] in february and treated for left hip fracture by dr. nolasco with pinning. he had an anaphylactic reaction to rocuronium and ancef infusion prior to procedure causing severe hypotension which led to icu stay. he was discharged to [facility] acute rehab. per she noticed pressure ulcer on 03/29/24 after leaving rehab. it started as dime size on his shoulder and grew. she is unsure regarding timing of the sacral wound. He has had no fevers or chills. He has home nurse and pt with [facility] who is dressing the wounds. specialty care cc oncology - lymphoma, prostate cancer every six months - [facility]. 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 Hypertension (SCT 06484220) T83.038A Family history of prostate cancer ([facility] 737930217) Z80.3 Family history of malignant neoplasm of breast ([facility] 611243785) Z77.098 Injury due to chemical exposure ([facility] 454841300) Service Connection: DS - Disabilities Eligibility: SERVICE CONNECTED 50% to 100% VERIFIED Total S/C %: 100 NEOPLASM, MALIGNANT, GENITOURINARY 60% S/C IMPAIRED HEARING 0% S/C NON-HODGKIN'S LYMPHOMA 100% S/C Allergies: OMNIPAQUE 350 INJECTION The following VA and Non-VA meds were reconciled with patient: Active Outpatient Medications (excluding Supplies): Active Outpatient Medications Status 1) ATORVASTATIN CALCIUM 40MG TAB TAKE TWO TABLET(S) BY ACTIVE MOUTH EVERY EVENING TO LOWER CHOLESTEROL 2) LACOSAMIDE 50MG TAB TAKE FOUR TABLETS BY MOUTH TWICE ACTIVE A DAY . MAY TAKE 2 EXTRA TABLETS (100MG) IF ANY UTI, FEVER OR ANY SURGICAL PROCEDURE. 3) MELATONIN 3MG CAP/TAB TAKE ONE CAP/TAB BY MOUTH AT ACTIVE BEDTIME NEEDED FOR SLEEP 4) POTASSIUM CHLORIDE 10MEQ SA TAB TAKE ONE TABLET BY ACTIVE MOUTH EVERY MORNING WITH BREAKFAST TO SUPPLEMENT POTASSIUM 5) TAMSULOSIN HCL 0.4MG CAP TAKE ONE CAPSULE BY MOUTH ACTIVE TWICE A DAY 30 MINUTES AFTER THE SAME MEALTIME EACH DAY FOR PROSTATE/URINARY SYMPTOMS. On examination: Date Vital Measurement Qualifiers 04/06/2024 12:44 Temp F (C) 97.7 (36.5) Pulse 80 Respir 20 BP 128/73 Ht in (cm) 69 (175.26) Wt lbs (kg)[BMI] 118 (53.52)[17] Pain 3 POx (L/Min)(%) 95 Physical exam is completed with the assistance of telehealth clinical edger technician: Roxy Bazan today PHYSICAL EXAMINATION GENERAL: No acute distress or labored breathing, he walks with walker, lying on exam table, answers questions appropriately, HEENT: Normocephalic clearsteth exam unable to be completed secondary to nonfunctioning equipment. EXTREMITIES: No clubbing,cyanosis or edema skin: there is 5x5 cm pressure ulcer on the right shoulder appears stage ii-iii surrouding erythema, sacrum deep wound stage iii - approx 3 cm deep per on site clinic ari carroll, surrounding granulation tissue yellow slough Assessment/plan: pressure ulcers of the left shoulder and sacrum -needs dedicated wound care evaluation - [place] telewound clinic referral placed for rec. on wound dressing supplies -wounds cleaned and debrided today by clinic rn -[facility] [facility] visiting home nurse for current home dressing changes -no signs of systemic sepsis today however will cover with p.o antibiotics given depth of wound. given a ?anaphylactic reaction to ancef noted in hospitalization will treat with levofloxacin and doxycycline x 7 days - non va rx sent per pt request -will await dedicated wound clinic evaluation regarding need for advanced imaging of the sacrum. pt is instructed if developing any signs of systemic infection to present to nearest emergency room bilateral nephrolithiasis s/p PCNL and subsequent bilateral ureteroscopy with bilateral ureteral stent placement on 12/16/23 s/p bilateral stent removal -follows [place] urology post stroke epilepsy r mca infarct follows. neurology dr. samano previously dr. ceron on lacosamide left hip fx s/p pinning 03/15 -following dr. nolasco orthopedics anaphylactic reaction noted during 03/15 hospitalization to ancef/rocuronium infusion - allergy placed per hospital d/c recs h/o prostate cancer s/p xrt completed 05/12. declined adt, nonhodgkin lymphoma -following [facility] aortic aneurysm/thoracic aneurysm -has upcoming fl vascular surgery evaluation weight loss in setting of poor nutrition status -seeing fl nutrition IM - Immunizations ADMINISTERED Immunization Series Date Facility Reaction Info COVID-19 (KELLE), VECTOR-NR, R* 2 07/10/2021 [facility]* <C> COVID-19 (KELLE), VECTOR-NR, R* 1 11/29/2020 [facility]* <C> COVID-19 (MODERNA), MRNA, LNP-S,* 3 03/19/2022 [facility]* <C> INFLUENZA, ADJUVANTED, QUADRIVAL* 06/16/2022 [facility]* INFLUENZA, ADJUVANTED, QUADRIVAL* 06/20/2021 [facility]* INFLUENZA, HIGH-DOSE, QUADRIVALE* 06/17/2023 [facility]* INFLUENZA, SPLIT VIRUS, QUADRIVA* 06/18/2020 [facility]* INFLUENZA, SPLIT VIRUS, QUADRIVA* 06/07/2019 [facility]* <C> INFLUENZA, SPLIT VIRUS, QUADRIVA* 09/06/2018 [facility]* <C> INFLUENZA, SPLIT VIRUS, TRIVALEN* [facility] <C> INFLUENZA, UNSPECIFIED FORMULATI* 06/02/2016 [facility]* <C> INFLUENZA, UNSPECIFIED FORMULATI* 08/12/2015 [facility]* <C> INFLUENZA, UNSPECIFIED FORMULATI* No Site <C> PNEUMOCOCCAL CONJUGATE PCV 13 08/12/2015 [facility]* PNEUMOCOCCAL POLYSACCHARIDE PPV23 08/10/2016 No Site TD(ADULT) UNSPECIFIED FORMULATION No Site TDAP 02/20/2014 No Site <C> ZOSTER LIVE No Site ZOSTER RECOMBINANT 2 03/02/2019 [facility]* ZOSTER RECOMBINANT 1 11/18/2017 [facility]* CONTRAINDICATED No data available REFUSED ======= No data available <C> See the Detailed Immunizations Health Summary Component[DIM] for Comments * Value is truncated; see the Detailed Immunizations Health Summary Component[DIM] for complete text Medication Reconciliation: Perform Medication Reconciliation JLV Link Data on this list may not be complete. Please check JLV. Allergies/ADRs (Tool #5) FACILITY ALLERGY/ADR -------- [facility] OMNIPAQUE 350 INJECTION Med Recon NoGlossary (Tool #1) INCLUDED IN THIS LIST: Alphabetical list of active outpatient prescriptions dispensed from this [place] (local) and dispensed from another [place] or DoD facility (remote) as well as inpatient orders (local pending and active), local clinic medications, locally documented non-VA medications, and local prescriptions that have or been discontinued in the past 90 days. Non-VA Meds Last Documented On: May 22, 2016 NOTE The display of VA prescriptions dispensed from another [place] or DoD facility (remote) is limited to active outpatient prescription entries matched to National Drug File at the originating site and may not include some items such as investigational drugs, compounds, etc. NOT INCLUDED IN THIS LIST: Medications self-entered by the patient into personal health records (i.e. [employer]) are NOT included in this list. Non-VA medications documented outside this [place], remote inpatient orders (regardless of status) and remote clinic medications are NOT included in this list. The patient and provider must always discuss medications the patient is taking, regardless of where the medication was dispensed or obtained. OUTPT ATORVASTATIN CALCIUM 40MG TAB (Status = Discontinued) TAKE TWO TABLET(S) BY MOUTH EVERY EVENING TO LOWER CHOLESTEROL Rx# [id number] Last Released: 12/09/23 Qt Supply: 180 Rx Expiration Date: 05/10/24 Refills Remainin OUTPT ATORVASTATIN CALCIUM 40MG TAB (Status = Active/Suspended) TAKE TWO TABLET(S) BY MOUTH EVERY EVENING TO LOWER CHOLESTEROL Rx# [id number] Last Released: Supply: 180 Rx Expiration Date: 04/07/25 Refills Remainin OUTPT LACOSAMIDE 50MG TAB (Status = ) TAKE FOUR TABLETS BY MOUTH TWICE A DAY MAY TAKE AN EXTRA TWO TABLETS IF ANY UTI,FEVER, OR ANY SURGICAL PROCEDURE Rx# [id number] Last Released: 12/30/23 QtyDays Supply: Rx Expiration Date: 01/15/24 Refills Remainin OUTPT LACOSAMIDE 50MG TAB (Status = Active) TAKE FOUR TABLETS BY MOUTH TWICE A DAY . MAY TAKE 2 EXTRA TABLETS (100MG) IF ANY UTI, FEVER OR ANY SURGICAL PROCEDURE. Rx# [id number] Last Released: 03/08/24 Qty/Days Supply: Rx Expiration Date: 07/26/24 Refills Remainin OUTPT LACTOBACILLUS ACIDOPHILUS CAP (Status = Active/Suspended) TAKE ONE CAPSULE BY MOUTH ONCE DAILY FOR DIGESTIVE CARE Rx# [id number] Last Released: Qt Supply: 100/ Rx Expiration Date: 04/07/25 Refills Remainin OUTPT MELATONIN 3MG CAP/TAB (Status = Discontinued) TAKE ONE CAP/TAB BY MOUTH AT BEDTIME NEEDED FOR SLEEP Rx# [id number] Last Released: 12/23/23 Qty/Days Supply: 120/90 Rx Expiration Date: 05/10/24 Refills Remainin OUTPT MELATONIN 3MG CAP/TAB (Status = Active/Suspended) TAKE ONE CAP/TAB BY MOUTH AT BEDTIME NEEDED FOR SLEEP Rx# [id number] Last Released: Supply: 120/ Rx Expiration Date: 04/07/25 Refills Remainin OUTPT POTASSIUM CHLORIDE 10MEQ SA TAB (Status = Discontinued) TAKE ONE TABLET BY MOUTH EVERY MORNING WITH BREAKFAST TO SUPPLEMENT POTASSIUM Rx# [id number] Last Released: 02/15/24 Qty/ Supply: 90 Rx Expiration Date: 05/10/24 Refills Remainin Indication: TO SUPPLEMENT POTASSIUM OUTPT POTASSIUM CHLORIDE 10MEQ SA TAB (Status = Active/Suspended) TAKE ONE TABLET BY MOUTH EVERY MORNING WITH BREAKFAST TO SUPPLEMENT POTASSIUM Rx# [id number] Last Released: Supply: 90 Rx Expiration Date: 04/07/25 Refills Remainin Indication: TO SUPPLEMENT POTASSIUM OUTPT TAMSULOSIN HCL 0.4MG CAP (Status = Discontinued) TAKE ONE CAPSULE BY MOUTH TWICE A DAY 30 MINUTES AFTER THE SAME MEALTIME EACH DAY FOR PROSTATE/URINARY SYMPTOMS. Rx# [id number] Last Released: 02/21/24 Qty/Days Supply: 60 Rx Expiration Date: 05/10/24 Refills Remainin OUTPT TAMSULOSIN HCL 0.4MG CAP (Status = Active/Suspended) TAKE ONE CAPSULE BY MOUTH TWICE A DAY 30 MINUTES AFTER THE SAME MEALTIME EACH DAY FOR PROSTATE/URINARY SYMPTOMS. Rx# [id number] Last Released: Supply: 60 Rx Expiration Date: 04/07/25 Refills Remainin OUTPT ZZZLACTOBACILLUS COMBO TAB (Status = Discontinued) TAKE ONE TABLET BY MOUTH ONCE DAILY FOR GI Rx# [id number] Last Released: 12/23/23 QtyDays Supply: 100 Rx Expiration Date: 05/26/24 Refills Remainin Indication: FOR GI SUPPLIES OUTPT DRESS,MEPILEX BORDER FLEX 4X4IN #[id number] (Status = Discontinued) APPLY ONE DRESSING TOPICALLY EVERY THIRTY-SIX HOURS APPLY DIRECTED Rx# [id number] Last Released: 01/04/24 Qty/Days Supply: Rx Expiration Date: 12/30/24 Refills Remainin Indication: SACRAL PRESSURE SORE OUTPT DRESS,MEPILEX BORDER FLEX 4X4IN #[id number] (Status = Active) APPLY ONE DRESSING TOPICALLY EVERY THIRTY-SIX HOURS APPLY DIRECTED Rx# [id number] Last Released: 02/22/24 Qty/Days Supply: Rx Expiration Date: 02/21/25 Refills Remainin Indication: SACRAL PRESSURE SORE OUTPT DRESSING,MEPILEX BORDR 8.7X9.8IN #[id number] (Status = Discontinued) APPLY ONE DRESSING TOPICALLY DIRECTED Rx# [id number] Last Released: 08/31/23 Qty/Days Supply: Rx Expiration [...] provided to patient/caregiver and patient/caregiver verbalized understanding. /vivian/ KYRA VELASQUEZ M.D INTERNAL MEDICINE, [facility] Signed: 04/06/2024 16:05 04/06/2024 ADDENDUM STATUS: COMPLETED correction: pt examined with the help of orquidea elias, clinic RN Kyra Voss /vivian/ KYRA VELASQUEZ M.D INTERNAL MEDICINE, [facility] Signed: 04/06/2024 16:06 KYRA VELASQUEZ [facility]
--- OUTSIDE RECORDS SUMMARY | 2024-05-24 19:23 | XMS_ITS | Encounter Summary ---
Author Name Department of Vetera Affairs (MD) Organization Department of Vetera Affairs (MD) Address [address] [place] [address] Care Team Providers Care Dry Goods Clerk Name Role Phone RON KYRA Primary Care [...] Ervin [facility] (WNR) MEDICARE ADVANTAGE [facility](W NR) * Aug 23, 2023 [id number] [phone] ANNALISA LOYD ITE PATIENT [facility] M[facility] (WNR) MEDICARE ADVANTAGE MCR (WNR) Aug 23, 2020 [id number] [phone] ANNALISA LOYD ITE PATIENT [facility] (WNR) MEDICARE ADVANTAGE [facility](W NR) Aug 23, 2012 [id number] [phone] ANNALISA LOYD ITE PATIENT Selected Encounter This section includes the information on record at MD for the Encounter. Date/Time Encounter Type Encounter Description Reason Pro vider Source Apr 10, 2024 03:50 PM Outpatient Encounter TELEPHONE TRIAGE IHE Encounter Template Text not used by VA Plan of Treatment: Future Appointments (+ 6 months) and Future Tests (+/- 45 days) The Plan of Treatment section includes future care activities for the patient from all [facility]. This section includes future appointments and future orders which are active, pending or scheduled. Future Appointments This section includes appointments that were scheduled to occur 6 months from the date of the Encounter, up to a maximum of 20 appointments. The data comes from all MD treatment facilities. Appointment Date/Time Appointment Type Appointme nt Facility Name Apr 11, 2024 10:00 AM AMBULATORY - SURGERY [facility] Apr 11, 2024 10:01 AM AMBUL[place]ORY - [place] [facility] Apr 21, 2024 10:30 AM [place]ORY - NONE [place] [facility] May 03, 2024 02:30 PM AMBULATORY - SURGERY [place] [facility] May 04, 2024 10:30 AM AMBULATORY - MEDICINE [facility] [place] [facility] May 04, 2024 11:00 AM AMBULATORY - SURGERY [place] [facility] May 04, 2024 12:30 PM AMBULATORY - NONE [place] [facility] May 04, 2024 01:00 PM AMBULATORY - SURGERY [place] [facility] May 08, 2024 02:30 PM AMBULATORY - MEDICINE [facility] May 08, 2024 02:31 PM AMBULATORY - NONE [place] [facility] May 16, 2024 10:00 AM AMBULATORY - SURGERY [facility] May 16, 2024 10:01 AM AMBULATORY - SURGERY [place] [facility] May 19, 2024 08:00 AM AMBULATORY - NONE [place] [facility] May 26, 2024 10:00 AM AMBULATORY - NONE [place] [facility] Jun 15, 2024 09:00 AM AMBULATORY - NONE [place] [facility] Aug 29, 2024 10:30 AM AMBULATORY - NONE [place] [facility] Aug 29, 2024 11:15 AM AMBULATORY - SURGERY [place] [facility] Active, Pending, and Scheduled Orders This section includes a listing of several types of active, pending, and scheduled orders, including clinic medications orders, diagnostic test orders, procedure orders and consult orders; where the start date of the order is 45 days before the date of the Encounter or 45 days after the date of theEncounter. The data comes from all MD treatment facilities. Test Date/Time Test Type Test Details Facility Name Mar 17, 2024 11:23 AM Consult Order COMMUNITY CARE-ACUTE REHAB Cons [employer] [facility] Apr 06, 2024 04:04 PM Consult Order COMMUNITY CARE-ALLERGY Cons [employer] [facility] May 03, 2024 12:00 AM Laboratory - Chemi stry Order URORISK DIAGNOSTIC PROFILE(Q) 24H RENAL STONE KIT 24H [facility] May 17, 2024 02:27 PM Consult Order CAREGIVER SUPPORT PROGRAM OUTPT Cons [employer] May 19, 2024 12:44 PM Consult Order COMMUNITY CARE-PALLIATIVE CARE Cons [employer] Cro[employer] [facility] Lab Results: +/- 30 days of [...] Range Comment May 04, 2024 10:[address] [facility] UREA NITROGEN Specimen Type: PLASMA Comment: , Tests performed on [employer] Moses [id number] (405) Ordering Provider: DAVID FAM Report Released Date/Time: Nov 15, 2023 11:30 AM Reporting [facility] [address] [place] [facility] [place] [address] Performing Lab: [facility] [address] [place] [place] [address] UREA NITROGEN 10 mg/dL 03-16May 04, 2024 10:[address] [facility] CREATININE WITH eGFR PANEL Specimen Type: PLASMA Comment: , Tests performed on [employer] Moses SN:[id number] (405) Ordering Provider: DAVID FAM Report Released Date/Time: Nov 15, 2023 11:30 AM Reporting Lab: [facility] [address] [place] [facility] [place] [address] Performing Lab: [place] [facility] [address] [facility] [address] CREATININE 0.91 mg/dL 0.50-1.50 eGFR(CKD-EPI 2020) 86 Social History: Smoking Status (Most current) and Tobacco Use (All prior to encounter date) This section includes the most current, and the historical, smoking and tobacco- related health factors from the MD facility where the Encounter took place. Current Smoking Status This section includes the most current smoking, or tobacco-related health factor, from the MD facility where the Encounter took place. Date/Time Current Smoking Status Comment Facil ity Feb 21, 2024 10:15 AM VA-TOBACCO USER EVERY DAY [facility] Tobacco Use History This section includes a history of the smoking, or tobacco-related health factors, that were collected on or before the date of the Encounter. The data comes from the MD facility where the Encounter took place. Date/Time Smoking Status/Tobacco Use Comment F acility Feb 21, 2024 10:15 AM VA-TOBACCO USE ADVICE [facility] Feb 21, 2024 10:15 AM VA-TOBACCO USE CABINET ABRASIVE SANDBLASTER NO [facility] Feb 21, 2024 10:15 AM VA-TOBACCO USE MED NO [facility] Feb 21, 2024 10:15 AM VA-TOBACCO USE [place] [address] [facility] Feb 21, 2024 10:15 AM VA-TOBACCO USER EVERY DAY [facility] Jul 17, 2021 02:27 PM CURRENT SMOKER REINIER [facility] Jul 01, 2021 08:55 PM VA-VAAES TOBACCO U SE CURRENT NRT DECLINE [facility] Jul 01, 2021 02:41 PM CURRENT SMOKER REINIER Bhatia [facility] Dec 08, 2020 08:45 PM VA-TOBACCO [...] ALL of a patient's completed or amended MD Advance and Rescinded Directives. The entries below indicate that a directive exists for the patient, but an actual copy is not included with this document. The data comes from all MD facilities. Date Advance Directives Provider Source Nov 18, [address] [facility] Jul 08, 2017 ADVANCE [...] the Encounter. The data comes from all MD treatment facilities. Date/Time Radiology Report Provider Source May 04, 2024 12:30 PM CTA ABDOMEN AND PE LVIS: GALINA LOYD [id number] -1945 M Exm Date: MAY 04, 2024@12:30 Req Phys: VIMAL FAM Pat Loc: [facility] VASCULAR 15 M3RH (Req'g Lo Img Loc: CT SCAN (OOS) Service: Unknown [facility] [place] [address] (Case [id number] COMPLETE) CTA ABDOMEN AND PELVIS (CT Detailed) CPT:52945 Contrast Media : Non-ionic Iodinated Reason for [...] 05, 2024 Date Verified: MAY 05, 2024 Casting Plug Assembler E-Sig:/VIVIAN/NÉSTOR PASCUAL Report: CTA ABDOMEN AND PELVIS , [...] REQUIRED Primary Interpreting Staff: NÉSTOR PASCUAL, RADIOLOGIST (Casting Plug Assembler) /NÉSTOR CONNER [facility] Encounter Notes: All associated encounter notes This section contains the clinical notes associated to the Encounter. Date/Time Encounter Note(s) Provider Source Apr 10, 2024 03:50 PM PRIMARY CARE MEDIC ATION MGT NOTE: LOCAL TITLE: Medication Note STANDARD TITLE: PRIMARY CARE MEDICATION MGT NOTE DATE OF NOTE: APR 10, 2024@15:50 ENTRY DATE: APR 10, 2024@15:50:23 AUTHOR: ADITI GARCIA COSIGNER: URGENCY: STATUS: COMPLETED Medication Note Has ADDENDA Patient's spouse is calling for medication refill or renewal: Dress, Mepilex Border Flex 4X4in. States does not have very many left. Requesting early renewal. Medication name: [ ]Med [ ]Med Refill How many days left? Do you need any other medications renewed? [ x ] [facility] Pharmacy [ ] Non-VA pharmacy for REGULAR SUPPLY [ ] Non-VA pharmacy for SHORT SUPPLY only What Pharmacy do you use? Pharmacy phone number? Pharmacy Fax number? FUTURE APPOINTMENTS Future Appointments - Mar@10:00 LIT WOUND OSTOMY PAT Mar@10:01 [facility] WOUND MOTOR BRAKEMAN Apr@14:30 LIT Apr@10:30 [facility] RAD LYNN PREP [facility] Apr@11:00 [facility] VASCULAR LAB [facility] Apr@12:[address] SCAN 15 [facility] Apr@13:00 [facility] VASCULAR 15 [facility] May@09:00 [facility] CARE-NEUROLOGY /vivian/ ADITI GARCIA Health Mixer Operator Raw Salt Signed: 04/10/2024 15:54 Receipt Acknowledged By: 04/11/2024 08:29 /vivian/ KYRA VELASQUEZ M.D INTERNAL MEDICINE, [facility] 04/10/2024 15:58 /vivian/ JENIFER SHANE LPN 04/10/2024 15:59 /huber SHANE LPN for OJ Curtis PETTIGLIO 04/10/2024 ADDENDUM STATUS: COMPLETED Amount is increased and renewed /vivian/ JENIFER SHANE LPN Signed: 04/10/2024 15:58 [facility]
--- OUTSIDE RECORDS SUMMARY | 2024-05-24 19:23 | XMS_ITS ---
DC NUTRITION/DIETETICS-INDIVIDUAL [facility] Encounter Summary Created on: May 24, 2024 GALINA LOYD : 1945 Sex: Male Author Name Department of Vetera Affairs (DC) Organization Department of Vetera Affairs ([place]) Address [address] [place] [address] Care Team Providers Care Hard Metals Engraver Hand Name Role Phone KYRA VELASQUEZ Primary Care [...] Ervin's Name Patient's Relationship to Policy Ervin [facility] (WNR) MEDICARE [facility](W NR) * Aug 23, 2023 [id number] ANNALISA LOYD ITE PATIENT [facility] (WNR) MEDICARE ADVANTAGE [facility] (WNR) Aug 23, 2020 [id number] [phone] ANNALISA LOYD ITE PATIENT [facility] (WNR) MEDICARE ADVANTAGE [facility](W NR) Aug 23, 2012 [id number] ANNALISA LOYD ITE PATIENT Selected Encounter This section includes the information on record at DC for the Encounter. Date/Time Encounter Type Encounter Description Reason Pro vider Source Apr 10, 2024 01:30 PM Outpatient Encounter NUTRITION/DIETETICS-I NDIVIDUAL IHE Encounter Template Text not used by VA Plan of Treatment: Future Appointments (+ 6 months) and Future Tests (+/- 45 days) The Plan of Treatment section includes future care activities for the patient from all [place] [facility] This section includes future appointments and [...] [place] [facility] Apr 21, 2024 10:30 AM AMBULATORY - NONE [place] [facility] May 03, 2024 02:30 PM AMBULATORY - [place]GERY [place] [facility] May 04, 2024 10:30 AM AMBULATORY - MEDICINE [facility] [place] [facility] May 04, 2024 11:00 AM AMBULATORY - [place]GERY [place] [facility] May 04, 2024 12:30 PM AMBULATORY - NONE [place] [facility] May 04, 2024 01:00 PM AMBULATORY - [place]GERY [place] [facility] May 08, 2024 02:30 PM AMBULATORY - MEDICINE [facility] May 08, 2024 02:31 PM AMBULATORY - NONE [place] [facility] May 16, 2024 10:00 AM AMBULATORY - SURGERY [facility] May 16, 2024 10:01 AM AMBULATORY - [place]GERY [place] [facility] May 19, 2024 08:00 AM AMBULATORY - NONE [place] [facility] May 26, 2024 10:00 AM AMBULATORY - NONE [place] [facility] Jun 15, 2024 09:00 AM AMBULATORY - NONE [place] [facility] Aug 29, 2024 10:30 AM AMBULATORY - NONE [place] [facility] Aug 29, 2024 11:15 AM AMBULATORY - SURGERY [place] [facility] Active, Pending, and Scheduled Orders This section [...] AM Consult Order COMMUNITY CARE-ACUTE REHAB Cons Munitions Handler's Choice [facility] Apr 06, 2024 04:04 PM Consult Order COMMUNITY CARE-ALLERGY Cons Munitions Handler's [facility] May 03, 2024 12:00 AM Laboratory - Chemi stry Order URORISK DIAGNOSTIC PROFILE(Q) 24H RENAL STONE KIT 24H [facility] SP [facility] May 17, 2024 02:27 PM Consult Order CAREGIVER SUPPORT PROGRAM OUTPT Cons Munitions Handler's [facility] May 19, 2024 12:44 PM Consult Order COMMUNITY CARE-PALLIATIVE CARE Cons [facility] Lab Results: +/- 30 days of the [...] Range Comment May 04, 2024 10:32 AM [facility] UREA NITROGEN Specimen Type: PLASMA Comment: , Tests performed on [employer] Moses SN:[id number] (405) Ordering Provider: DAVID FAM Report Released Date/Time: Nov 15, 2023 11:30 AM Reporting Lab: [place] [facility] [address] [place] [place] [address] Performing Lab: [place] [facility] [address] [place] [place] [address] UREA NITROGEN 10 mg/dL 03-16May 04, 2024 10:32 AM [facility] CREATININE WITH eGFR PANEL Specimen Type: PLASMA Comment: , Tests performed on [employer] Moses SN:[id number] (405) Ordering Provider: DAVID FAM Report Released Date/Time: Nov 15, 2023 11:30 AM Reporting Lab: [facility] [address] [place] [facility] [place] [address] Performing Lab: [place] [facility] [address] [facility] [address] CREATININE 0.91 mg/dL 0.50-1.50 eGFR(CKD-EPI 2020) 86 [...] 2022 09:30 AM VA-TOBACCO USER EVERY DAY [facility] Tobacco Use History This section includes a history of the smoking, or tobacco-related health factors, that were collected on or before the date of the Encounter. The data comes from the DC facility where the Encounter took place. Date/Time Smoking Status/Tobacco Use Comment F acility May 14, 2022 09:30 AM VA-TOBACCO USE ADVICE [facility] May 14, 2022 09:30 AM VA-TOBACCO USE [place] NO [facility] May 14, 2022 09:30 AM VA-TOBACCO USE MED NO [facility] May 14, 2022 09:30 AM VA-TOBACCO USE WI 30 MIN OF WAKE UP [facility] May 14, 2022 09:30 AM VA-TOBACCO USER EVERY DAY [facility] Jun 27, 2020 09:30 AM VA-TOBACCO FORMER USER [facility] Jun 27, 2020 09:30 AM VA-TOBACCO QUIT < 1 YEAR [facility] December 28, 2018 11:23 AM VA-TOBACCO USE 30 YEARS OR MORE [facility] December 28, 2018 11:23 AM VA-TOBACCO USE ADVICE [facility] December 28, 2018 11:23 AM VA-TOBACCO USE [place] NO [facility] December 28, 2018 11:23 AM VA-TOBACCO USE MED NO [facility] December 28, 2018 11:23 AM VA-TOBACCO USE WI 30 MIN OF WAKE UP [facility] December 28, 2018 11:23 AM VA-TOBACCO USER EVERY DAY [facility] Aug 10, 2016 09:05 AM CURRENT SMOKER [facility] Aug 10, 2016 09:05 AM V1-PT NOT [...] CTA ABDOMEN AND PE LVIS: GALINA LOYD [id number] -1945 M Exm Date: MAY 04, 2024@12:30 Req Phys: VIMAL FAM Pat Loc: [facility] VASCULAR 15 M3RH (Req'g Lo Img Loc: CT SCAN (OOS) Service: [place] [facility] [address] (Case [id number] COMPLETE) CTA ABDOMEN AND PELVIS (CT Detailed) CPT:37410 Contrast Media : Non-ionic Iodinated Reason for [...] 05, 2024 Date Verified: MAY 05, 2024 Harness Repairer E-Sig:/ES/NÉSTOR PASCUAL Report: CTA ABDOMEN AND PELVIS [...] REQUIRED Primary Interpreting Staff: NÉSTOR PASCUAL, RADIOLOGIST (Harness Repairer) /NÉSTOR CONNER T [facility] Encounter Notes: All associated encounter notes This section contains the clinical notes associated to the Encounter. Date/Time Encounter Note(s) Provider Source Apr 10, 2024 01:57 PM TELEHEALTH NOTE: LOCAL TITLE: Telehealth Fats And Oils Loader Note STANDARD TITLE: TELEHEALTH NOTE DATE OF NOTE: APR 10, 2024@13:57 ENTRY DATE: APR 10, 2024@13:58:02 AUTHOR: ADITI GARCIA EXP COSIGNER: URGENCY: STATUS: COMPLETED Patient is marked today as a No Show for scheduled NUTRITION appoinment. NS letter sent. /vivian/ ADITI GARCIA Health Fats And Oils Loader Signed: 04/10/2024 13:58 ADITI GARCIA [facility]
--- OUTSIDE RECORDS SUMMARY | 2024-05-24 19:23 | XMS_ITS | Encounter Summary ---
Author Name Department [place] Organization [place] Address [address] [place] [address] Care Team Providers Care Farm Appraiser Name Role Phone KYRA VELASQUEZ Primary Care [...] Policy Ervin [facility] (WNR) MEDICARE ADVANTAGE MCR(W NR) * Aug 23, 2023 [id number] [phone] ANNALISA LOYD ITE PATIENT [facility] (WNR) MEDICARE ADVANTAGE [facility] (WNR) Aug 23, 2020 [id number] [phone] ANNALISA LOYD ITE PATIENT [facility] (WNR) MEDICARE ADVANTAGE MCR(W NR) Aug 23, 2012 [id number] ANNALISA LOYD ITE PATIENT Selected Encounter This section includes the information on record at [place] for the Encounter. Date/Time Encounter Type Encounter Description Reason Pro vider Source Apr 10, 2024 03:38 PM Outpatient Encounter ADMIN PAT ACTIVTIES (MASNONCT) IHE Encounter Template Text not used by [place] Plan of Treatment: Future Appointments (+ 6 [...] AMBULATORY - [place]IC[place] [facility] May [...] [facility] May 26, 2024 10:00 AM AMBULATORY - NONE [place] [facility] Jun 15, 2024 09:00 AM AMBULATORY - NONE [place] [facility] Aug 29, 2024 10:30 AM AMBULATORY - NONE [place] [facility] Aug 29, 2024 11:15 AM AMBULATORY - [place] [facility] Active, Pending, and Scheduled Orders This section includes a listing of several types of active, pending, and scheduled orders, including clinic medications orders, diagnostic test orders, procedure orders and consult orders; where the start date of the order is 45 days before the date of the Encounter or 45 days after the date of theEncounter. The data comes from all [place] treatment facilities. Test Date/Time Test Type Test Details Facility Name Mar 17, 2024 11:23 AM Consult Order COMMUNITY CARE-ACUTE REHAB Cons Quality Control Chemist[facility] Apr 06, 2024 04:04 PM Consult Order COMMUNITY CARE[facility]ALLERGY Cons [facility] May 03, 2024 12:00 AM Laboratory - Chemi stry Order URORISK DIAGNOSTIC PROFILE(Q) 24H RENAL STONE KIT 24H URINE SP [facility] May 17, 2024 02:27 PM Consult Order CAREGIVER SUPPORT PROGRAM OUTPT Cons Quality Control Chemist's [facility] May 19, 2024 12:44 PM Consult Order COMMUNITY CARE-PALLIATIVE CARE Cons Quality Control [facility]ist[facility] Lab Results: +/- 30 days of [...] Range Comment May 04, 2024 10:32 AM [facility] UREA NITROGEN Specimen Type: PLASMA Comment: , Tests performed on [employer] Moses [id number] ([id number]) Ordering Provider: DAVID FAM Report Released Date/Time: Nov 15, 2023 11:30 AM Reporting Lab: [facility] [address] [place] [place] [place] [address] Performing Lab: [facility] [address] [place] [facility] [place] [address] UREA NITROGEN 10 mg/dL 03-16May 04, 2024 10:32 AM [facility] CREATININE WITH eGFR PANEL Specimen Type: PLASMA Comment: , Tests performed on [employer] Lopes SN:[id number] ([id number]) Ordering Provider: DAVID FAM Report Released Date/Time: Nov 15, 2023 11:30 AM Reporting Lab: [facility] [address] [place] [facility] [place] [address] Performing Lab: [facility] [address] [place] [facility] [place] [address] CREATININE 0.91 mg/dL 0.50-1.50 eGFR(CKD-EPI 2020) 86 [...] > 1 5 LESS THAN 30 YEARS [facility] Tobacco Use History This section includes a history of the smoking, or tobacco-related health factors, that were collected on or before the date of the Encounter. The data comes from the [place] facility where the Encounter took place. Date/Time Smoking Status/Tobacco Use Comment F acility Feb 21, 2024 10:15 AM VA-TOBACCO USE ADVICE [facility] Feb 21, 2024 10:15 AM VA-TOBACCO USE INDUSTRIAL RENDERER NO [facility] Feb 21, 2024 10:15 AM VA-TOBACCO USE MED NO [facility] Feb 21, 2024 10:15 AM VA-TOBACCO USE WI 30 MIN OF WAKEUP [facility] Feb 21, 2024 10:15 AM VA-TOBACCO USER EVERY DAY [facility] Jul 17, 2021 02:27 PM CURRENT SMOKER REINIER Bhatia [facility] Jul 01, 2021 08:55 PM VA-VAAES TOBACCO U SE CURRENT NRT DECLINE [facility] Jul 01, 2021 02:41 PM CURRENT SMOKER REINIER Bhatia [facility] Dec 08, 2020 08:45 [...] CTA ABDOMEN AND PE LVIS: GALINA LOYD [id number] -1945 M Exm Date: MAY 04, 2024@12:30 Req Phys: VIMAL FAM Pat Loc: [facility] VASCULAR 15 M3RH (Req'g Lo Img Loc: CT SCAN (OOS) Service: Unknown [facility] [address] (Case [id number] COMPLETE) CTA ABDOMEN AND PELVIS (CT Detailed) CPT:72478 Contrast Media : Non-ionic Iodinated Reason for [...] 05, 2024 Date Verified: MAY 05, 2024 Panel Instrument Repairer E-Sig:/ES/NÉSTOR PASCUAL Report: CTA ABDOMEN AND [...] REQUIRED Primary Interpreting Staff: NÉSTOR PASCUAL, RADIOLOGIST (Panel Instrument Repairer) /NÉSTOR CONNER T [facility] Encounter Notes: All associated encounter notes This section contains the clinical notes associated to the Encounter. Date/Time Encounter Note(s) Provider Source Apr 10, 2024 03:38 PM ADMINISTRATIVE NOT E: LOCAL TITLE: Administrative Note/Telehealth STANDARD TITLE: ADMINISTRATIVE NOTE DATE OF NOTE: APR 10, 2024@15:38 ENTRY DATE: APR 10, 2024@15:38:35 AUTHOR: ADITI GARCIA EXP COSIGNER: URGENCY: STATUS: COMPLETED Call out to patient to schedule TH WOUND appointment. Negotiated and scheduled with spouse.... on 04/11/2024 @ 10:00am. /vivian/ ADITI GARCIA Health Child Care Sitter Signed: 04/10/2024 15:39 ADITI GARCIA [facility]
--- OUTSIDE RECORDS SUMMARY | 2024-05-24 19:23 | XMS_ITS | Encounter Summary ---
Author Name Department of [place] Organization [place] Address [address] [place] [address] Care Team Providers Care Heat Plant Specialist Name Role Phone KYRA VELASQUEZ Primary Care [...] Patient's Relationship to Policy Ervin [facility] (WNR) MEDICARE ADVANTAGE MCR(W NR) * Aug 23, 2023 [id number] ANNALISA LOYD ITE PATIENT [facility] (WNR) MEDICARE ADVANTAGE [facility] (WNR) Aug 23, 2020 [id number] [phone] ANNALISA LOYD ITE PATIENT [facility] (WNR) MEDICARE [facility](W NR) Aug 23, 2012 [id number] 03 ANNALISA LOYD ITE PATIENT Selected Encounter This section includes the information on record at [place] for the Encounter. Date/Time Encounter Type Encounter Description Reason Provider Source Apr 11, 2024 10:01 AM APPROPOS MTHD OFFLOADING RXD WOUND TREAT & OSTOMY CARE ICD-10-CM L89.43 Pressr ulcer of contig site of back, buttock and hip, stg 3 CECILIO QUINTERO AM IHJannette Encounter Template Text not used by VA Assessments - Encounter Diagnoses This section includes the primary and secondary diagnoses documented for the Encounter. Date/Time Primary/Secondary Diagnosis Diagnosis Name Provider Source Apr 11, 2024 11:05 AM PRIMARY Pressr ulcer of contig site of back, buttock and hip, stg 3 GRACIE QUINTERO SONYA [facility] Apr 11, 2024 11:05 AM SECONDARY Pressure ulcer of unspecified site, unstageable GRACIE QUINTERO [facility] Plan of Treatment: Future Appointments (+ 6 months) and Future Tests (+/- 45 days) The Plan of Treatment section includes future care activities for the patient from all [place] treatmentfacilities. This section includes future appointments and future orders which are active, pending or scheduled. Future Appointments This section includes appointments that were scheduled to occur 6 months from the date of the Encounter, up to a maximum of 20 appointments. The data comes from all [place] treatment facilities. Appointment Date/Time Appointment Type Appointme nt Facility Name Apr 21, 2024 10:30 AM AMBULATORY - NONE [place] [facility] May 03, 2024 02:30 PM AM[place]ORY [place] [facility] May 04, 2024 10:30 AM AMBULATORY - MEDICINE RE[place]AYLE T [facility] May 04, 2024 11:00 AM AMBULATORY - [place] [facility] May 04, 2024 [...] 16, 2024 10:00 AM AMBULATORY - SURGERY [facility] May 16, 2024 10:01 AM AMBULATORY - [place] [facility] May 19, 2024 08:00 AM AMBULATORY - NONE [place] [facility] May 26, 2024 10:00 AM AMBULATORY - NONE [place] [facility] Jun 15, 2024 09:00 AM AMBULATORY - NONE [place] [facility] Aug 29, 2024 10:30 AM AMBULATORY - NONE [place] [facility] Aug 29, 2024 11:15 AM AMBULATORY - SURGERY [facility] [...] of theEncounter. The data comes from all [place] treatment facilities. Test Date/Time Test Type Test Details Facility Name Mar 17, 2024 11:23 AM Consult Order COMMUNITY CARE-ACUTE REHAB Cons Visitor Services Associate[facility] Apr 06, 2024 04:04 PM Consult Order COMMUNITY CARE-ALLERGY Cons Visitor Services [facility] May 03, 2024 12:00 AM Laboratory - Chemi stry Order URORISK DIAGNOSTIC PROFILE(Q) 24H RENAL STONE KIT 24H URINE SP [facility] May 17, 2024 02:27 PM Consult Order CAREGIVER SUPPORT PROGRAM OUTPT Cons Visitor Services Associate's [facility] May 19, 2024 12:44 PM Consult Order COMMUNITY CARE-PALLIATIVE CARE Cons Visitor Services [facility] Lab Results: +/- 30 days of [...] Range Comment May 04, 2024 10:32 AM [facility] UREA NITROGEN Specimen Type: PLASMA Comment: , Tests performed on [employer] Lopes SN:[id number] (405) Ordering Provider: DAVID FAM Report Released Date/Time: Nov 15, 2023 11:30 AM Reporting Lab: [facility] [address] [facility] [address] Performing Lab: [facility] [address] [facility] [address] UREA NITROGEN 10 mg/dL 03-16May 04, 2024 10:32 AM [facility] CREATININE WITH eGFR PANEL Specimen Type: PLASMA Comment: , Tests performed on [employer] Lopes SN:[id number] (391) Ordering Provider: DAVID FAM Report Released Date/Time: Nov 15, 2023 11:30 AM Reporting Lab: [facility] [address] [facility] [address] Performing Lab: [facility] [address] [facility] [address] CREATININE 0.91 mg/dL 0.50-1.50 eGFR(CKD-EPI 2020) 86 Social History: Smoking Status (Most current) and Tobacco Use (All prior to encounter date) This section includes the most current, and the historical, smoking and tobacco- related health factors from the [place] facility where the Encounter took place. Current Smoking Status This section includes the most current smoking, or tobacco-related health factor, from the [place] facility where the Encounter took place. Date/Time Current Smoking Status Comment Facil ity Feb 21, 2024 10:15 AM VA-TOBACCO USER EVERY DAY [facility] Tobacco Use History This section includes a history of the smoking, or tobacco-related health factors, that were collected on or before the date of the Encounter. The data comes from the [place] facility where the Encounter took place. Date/Time Smoking Status/Tobacco Use Comment F acility Feb 21, 2024 10:15 AM VA-TOBACCO USE ADVICE [facility] Feb 21, 2024 10:15 AM VA-TOBACCO USE CARBON COATING MACHINE OPERATOR NO [facility] Feb 21, 2024 10:15 AM VA-TOBACCO USE MED NO [facility] Feb 21, 2024 10:15 AM VA-TOBACCO USE WI 30 MIN OF WAKEUP [facility] Feb 21, 2024 10:15 AM VA-TOBACCO USER EVERY DAY [facility] Jul 17, 2021 02:27 PM CURRENT SMOKER REINIER Bhatia [place] [facility] Jul 01, 2021 08:55 PM VA-VAAES [...] ALL of a patient's completed or amended [place] Advance and Rescinded Directives. The entries below indicate that a directive exists for the patient, but an actual copy is not included with this document. The data comes from all [place] facilities. Date Advance Directives Provider Source Nov [...] the Encounter. The data comes from all [place] treatment facilities. Date/Time Radiology Report Provider Source May 04, 2024 12:30 PM CTA ABDOMEN AND PE LVIS: EVELYN LOYDE CARISA [id number] -1945 M Exm Date: MAY 04, 2024@12:30 Req Phys: VIMAL FAM Pat Loc: [facility] VASCULAR 15 M3RH (Req'g Lo Img Loc: CT SCAN (OOS) Service: [place] [facility] [address] (Case [id number] COMPLETE) CTA ABDOMEN AND PELVIS (CT Detailed) CPT:89050 Contrast Media : Non-ionic Iodinated Reason for [...] 05, 2024 Date Verified: MAY 05, 2024 Senior Property Manager E-Sig:/ES/NÉSTOR PASCUAL Report: CTA ABDOMEN AND PELVIS [...] REQUIRED Primary Interpreting Staff: NÉSTOR PASCUAL, RADIOLOGIST (Senior Property Manager) /NÉSTOR CONNER T[place] [facility] Encounter Notes: All associated encounter notes This section contains the clinical notes associated to the Encounter. Date/Time Encounter Note(s) Provider Source Apr 11, 2024 10:13 AM WOUND CARE CONSULT : LOCAL TITLE: CONSULT: Wound Care STANDARD TITLE: WOUND CARE CONSULT DATE OF NOTE: APR 11, 2024@10:13 ENTRY DATE: APR 11, 2024@10:13:39 AUTHOR: DANIELLE QUINTERO COSIGNER: URGENCY: STATUS: COMPLETED REASON FOR VISIT: Pressure injuries to left shoulder and left buttock. Active problems - Computerized Problem List is the source for the followin. Exposure to potentially hazardous substance 2. Delirium 3. Depression 4. Bradycardia 5. Non-traumatic subdural hemorrhage 6. AAA - Abdominal aortic aneurysm 7. Thoracic aortic aneurysm without rupture 8. Follicular non-Hodgkin lymphoma, small cleaved cell 9. Tobacco dependence 10. Alcohol dependence 11. Hypertension 12. Family history of prostate cancer 13. Family history of malignant neoplasm of breast 14. Injury due to chemical exposure (SNOMED CT [id number]) 69 in [175.3 cm] (04/06/2024 12:44) 118 lb [53.52 kg] (04/06/2024 12:44) BODY MASS INDEX - APR 06, 2024@12:44:02 17.5 NARRATIVE: 78 yo male with multiple medical problems including cva 2020, sdh, history of seizures, nephrolithiasis, h/o bl ureteral stents s/p removal, htn, tobacco use, follicular lymphoma, AAA, thoracic aortic aneurysm, etoh dependence in remission seen via out [facility] for assessment of pressure injuries to LEFT shoulder and LEFT buttock. He was admitted to [facility] in February and treated for left hip fracture by dr. nolasco with pinning. He was discharged to [facility]hab. His noticed pressure injury to LEFT shoulder on 03/29/24 after leaving rehab. She is unsure regarding timing of the sacral wound. Vet is unaware of how wounds originated. He was started on PO ABX by PCP at last visit which he continues to take without issue. His reports periwound erythema has reduced with therapy. Has VNA assistance for wound care and dressing changes but his is able to assist PRN. Currently treating with MH gel and mepilex foam border cover dressings. Denies incontinence, reports having a durable seat cushion at home which he uses. LOCATION: posterior LEFT shoulder, unstageable PI WOUND BED TISSUES: 100% adhered mahoney/white fibrin tissue DIMENSIONS: 5.0 x 5.0cm, irregular shape UNDERMINING/TUNNELING: none observed EDGES: attached, ragged. EXUDATE: light serosang ODOR: none reported PERIWOUND SKIN: local erythema, non-streaking. SOI: none observed (on PO ABX) PAIN: none reported. LOCATION: Left ischium, Stage 3 PI. WOUND BED TISSUES: Moist red with overlying translucent yellow layer. DIMENSIONS: probes to 1.0cm at 0600 position, overall dimensions 2.0 x 2.8cm UNDERMINING/TUNNELING: slight undermining and wound probes to ~1.0cm EDGES: rolled, ragged, detached EXUDATE: light serosang ODOR: none reported. PERIWOUND SKIN: local mixed blanchable vs. non-blanchable erythema SOI: none observed (on PO ABX) PAIN: none reported by Vet. WOUND CARE PROCEDURE: -Wounds cleansed with NS and gauze, measured and assessed as above. -Dressed with MH gel for antimicrobial and autolytic debridement benefits. -Covered with Mepilex foam border cover dressing for exudate mgmt and environmental barrier. RECS/PLAN: -Continue with VNA assistance for wound care and dressing changes as outlined above. Advised Vet's to change dressings more frequently PRN if soiled or saturated which she understood and agreed to. -RTC x1 month for f/u. Encouraged to call clinic with any questions or concerns or to report back to ED if condition worsens or if SOI re-develop at any point. TIME SPENT ON THIS ENCOUNTER: 45 min /es/ DANIELLE SOMERSN, RN, CWON Signed: 04/11/2024 11:05 DANIELLE QUINTERO [facility]
--- OUTSIDE RECORDS SUMMARY | 2024-05-24 19:23 | XMS_ITS | Encounter Summary ---
Author Name Department of [place] Organization [place] Address [address] [place] [address] Care Team Providers Care Health Data Administrator Name Role Phone RON KYRA Primary Care [...] Ervin's Name Patient's Relationship to Policy Ervin [facility] (WNR) MEDICARE ADVANTAGE [facility](W NR) * Aug 23, 2023 [id number] ANNALISA LOYD ITE PATIENT [facility] MCR (WNR) MEDICARE ADVANTAGE MCR (WNR) Aug 23, 2020 [id number] [phone] ANNALISA LOYD ITE PATIENT [facility] MCR (WNR) MEDICARE ADVANTAGE [facility](W NR) Aug 23, 2012 [id number] ANNALISA LOYD ITE PATIENT Selected Encounter This section includes the information on record at [place] for the Encounter. Date/Time Encounter Type Encounter Description Reason Pro vider Source Apr 07, 2024 08:08 AM Outpatient Encounter EVENT (HISTORICAL) IHE Encounter Template Text not used by VA Plan of Treatment: Future Appointments (+ 6 months) and Future Tests (+/- 45 days) The Plan of Treatment section includes future care activities for the patient from all [place] [facility]. This section includes future appointments and future [...] AMBULATORY - [place] [facility] Apr 21, 2024 10:30 AM AMBULATORY - NONE [place] [facility] May 03, 2024 02:30 PM AM[place]UL[place]ORY - [place] [facility] May 04, 2024 10:30 AM AMBULATORY - [place]IC[place] [facility] May 04, 2024 11:00 AM AMBULATORY - [place]GERY [place] [facility] May 04, 2024 12:30 PM AMBULATORY - NONE [place] [facility] May 04, 2024 01:00 PM AMBULATORY - [place] [facility] May 08, 2024 02:30 PM AMBULATORY - MEDICINE [facility] May 08, 2024 02:31 PM AMBULATORY - NONE [place] [facility] May 16, 2024 10:00 AM AMBULATORY - SURGERY [facility] May 16, 2024 10:01 AM AMBUL[place]ORY [place] [facility] May 19, 2024 08:00 AM AMBULATORY - NONE [place] [facility] May 26, 2024 10:00 AM AMBULATORY - NONE [place] [facility] Jun 15, 2024 09:00 AM AMBULATORY - NONE [place] [facility] Aug 29, 2024 10:30 AM AMBULATORY - NONE [place] [facility] Aug 29, 2024 11:15 AM AMBULATORY - [place]GERY [place] [facility] Active, Pending, and Scheduled Orders This [...] AM Consult Order COMMUNITY CARE-ACUTE REHAB Cons Operations Director's [facility] Apr 06, 2024 04:04 PM Consult Order [facility] C[facility] May 03, 2024 12:00 AM Laboratory - Chemi stry Order URORISK DIAGNOSTIC PROFILE(Q) 24H RENAL STONE KIT 24H URINE SP [facility] May 17, 2024 02:27 PM Consult Order CAREGIVER SUPPORT PROGRAM OUTPT Cons Operations Director's [facility] May 19, 2024 12:44 PM Consult Order COMMUNITY CARE-PALLIATIVE CARE [facility] Operations Director's [facility] Lab Results: +/- 30 days of [...] Range Comment May 04, 2024 10:32 AM [facility] UREA NITROGEN Specimen Type: PLASMA Comment: , Tests performed on [employer] Moses SN:[id number] (405) Ordering Provider: DAVID FAM Report Released Date/Time: Nov 15, 2023 11:30 AM Reporting Lab[facility] [address] [place] [facility] [address] Performing Lab: [facility] [address] [place] [facility] [place] [place] [address] UREA NITROGEN 10 mg/dL 03-16May 04, 2024 10:32 AM [facility] CREATININE WITH eGFR PANEL Specimen Type: PLASMA Comment: , Tests performed on [employer] Lopes SN:[id number] (405) Ordering Provider: DAVID FAM Report Released Date/Time: Nov 15, 2023 11:30 AM Reporting Lab: [facility] GAY[facility] [address] [facility] [address] Performing Lab: [facility] [place] [facility] [address] [facility] [address] CREATININE 0.91 mg/dL 0.50-1.50 eGFR(CKD-EPI 2020) 86 [...] 2024 10:15 AM VA-TOBACCO USER EVERY DAY [facility] Tobacco Use History This section includes a history of the smoking, or tobacco-related health factors, that were collected on or before the date of the Encounter. The data comes from the [place] facility where the Encounter took place. Date/Time Smoking Status/Tobacco Use Comment F acility Feb 21, 2024 10:15 AM VA-TOBACCO USE ADVICE [facility] Feb 21, 2024 10:15 AM VA-TOBACCO USE DYER AND WASHER NO [facility] Feb 21, 2024 10:15 AM VA-TOBACCO USE MED NO [facility] Feb 21, 2024 10:15 AM VA-TOBACCO USE WI 30 MIN OF WAKEUP [facility] Feb 21, 2024 10:15 AM VA-TOBACCO USER EVERY DAY [facility] Jul 17, 2021 02:27 PM CURRENT [...] 2020 06:58 PM VA-TOBACCO FORMER USER [facility] Apr 04, 2015 03:47 PM [...] CTA ABDOMEN AND PE LVIS: GALINA LOYD [id number] -1945 M Exm Date: MAY 04, 2024@12:30 Req Phys: VIMAL FAM Pat Loc: [facility] VASCULAR 15 M3RH (Req'g Lo Img Loc: CT SCAN (OOS) Service: Unknown [facility] [place] [address] (Case [id number] COMPLETE) CTA ABDOMEN AND PELVIS (CT Detailed) CPT:32376 Contrast Media : Non-ionic Iodinated Reason for [...] 05, 2024 Date Verified: MAY 05, 2024 Auto Service Station Attendant E-Sig:/ES/NÉSTOR PASCUAL Report: CTA ABDOMEN AND PELVIS [...] REQUIRED Primary Interpreting Staff: NÉSTOR PASCUAL, RADIOLOGIST (Auto Service Station Attendant) /NÉSTOR CONNER [facility] Encounter Notes: All associated encounter notes This section contains the clinical notes associated to the Encounter. Date/Time Encounter Note(s) Provider Source Apr 07, 2024 08:08 AM ALLERGY & IMMUNOLO GY ADVERSE EVENT NOTE: LOCAL TITLE: ADVERSE REACT/ALLERGY STANDARD TITLE: ALLERGY & IMMUNOLOGY ADVERSE EVENT NOTE DATE OF NOTE: APR 07, 2024@08:08:58 ENTRY DATE: APR 07, 2024@08:08:58 AUTHOR: LAINE LUA EXP COSIGNER: URGENCY: STATUS: COMPLETED This patient has had the following reactions signed-off on Apr 07, 2024@08:08:58. ROCURONIUM BROMIDE /es/ Laine Lua DNP, GLENN, RN-[facility] Clinical Wood Bucker Signed: 04/07/2024 08:17 Receipt Acknowledged By: 04/07/2024 08:28 /vivian/ KYRA VELASQUEZ M.D INTERNAL MEDICINE, [facility] LAINE LUA [facility]
--- OUTSIDE RECORDS SUMMARY | 2024-05-24 19:23 | XMS_ITS ---
Author Name [facility] [place] Address [address] [place] [address] Care Team Providers Care Forward Air Controller/Air Officer Name Role Phone KYRA VELASQUEZ Primary [...] Ervin's Name Patient's Relationship to Policy Ervin [facility] (WNR) MEDICARE ADVANTAGE MCR(W NR) * Aug 23, 2023 [id number] ANNALISA LOYD ITE PATIENT [facility] (WNR) MEDICARE ADVANTAGE [facility] (WNR) Aug 23, 2020 [id number] [phone] ANNALISA LOYD ITE PATIENT [facility] (WNR) MEDICARE ADVANTAGE MCR(W NR) Aug 23, 2012 [id number] ANNALISA LOYD ITE PATIENT Selected Encounter This section includes the information on record at [place] for the Encounter. Date/Time Encounter Type Encounter Description Reason Pro vider Source Apr 13, 2024 04:16 PM Outpatient Encounter ADMIN PAT ACTIVTIES (MASNONCT) IHE Encounter Template Text not used by [place] Plan of Treatment: Future Appointments (+ 6 months) and Future Tests (+/- 45 days) The Plan of Treatment section includes future care activities for the patient from all [place] [facility]. This section includes future appointments and future orders which are active, pending or scheduled. Future Appointments This section includes appointments that were scheduled to occur 6 months from the date of the Encounter, up to a maximum of 20 appointments. The data comes from all [facility] facilities. Appointment Date/Time Appointment Type Appointme nt Facility Name Apr 21, 2024 10:30 AM AMBULATORY - NONE [place] [facility] May 03, 2024 02:30 PM [place] [facility] May 04, 2024 10:30 AM AMBULATORY - MEDICINE [facility] E [place] [facility] May 04, 2024 11:00 AM [place] [facility] May 04, 2024 12:30 PM AMBULATORY - NONE [place] [facility] May 04, 2024 01:00 PM [place] [facility] May 08, 2024 02:30 PM AMBULATORY - MEDICINE [facility] May 08, 2024 02:31 PM AMBULATORY - NONE [place] [facility] May 16, 2024 10:00 AM AMBULATORY - SURGERY [facility] May 16, 2024 10:01 AM [place] [facility] May 19, 2024 08:00 AM AMBULATORY - NONE [place] [facility] May 26, 2024 10:00 AM AMBULATORY - NONE [place] [facility] Jun 15, 2024 09:00 AM AMBULATORY - NONE [place] [facility] Aug 29, 2024 10:30 AM AMBULATORY - NONE [place] [facility] Aug 29, 2024 11:15 AM [place] [facility] Active, Pending, and Scheduled Orders This [...] AM Consult Order COMMUNITY CARE-ACUTE REHAB Cons Vascular Surgery [facility] Apr 06, 2024 04:04 PM Consult Order COMMUNITY CARE-ALLERGY Cons Vascular Surgery Physician's [facility] May 03, 2024 12:00 AM Laboratory - Chemi stry Order URORISK DIAGNOSTIC PROFILE(Q) 24H RENAL STONE KIT 24H URINE SP [facility] May 17, 2024 02:27 PM Consult Order CAREGIVER SUPPORT PROGRAM OUTPT Cons Vascular Surgery Physician's [facility] May 19, 2024 12:44 PM Consult Order COMMUNITY CARE-PALLIATIVE CARE Cons Vascular Surgery Physician's [facility] Lab Results: +/- 30 [...] Range Comment May 04, 2024 10:32 AM [facility] UREA NITROGEN Specimen Type: PLASMA Comment: , Tests performed on [employer] Moses [id number]) Ordering Provider: DAVID FAM Report Released Date/Time: Nov 15, 2023 11:30 AM Reporting Lab: [facility] [address] [place] [address] Performing Lab: [facility] [address] [place] [facility] [place] [address] UREA NITROGEN 10 mg/dL -May 04, 2024 10:32 AM [facility] CREATININE WITH eGFR PANEL Specimen Type: PLASMA Comment: , Tests performed on WorkTouch [place] SN:[id number] ([id number]) Ordering Provider: DAVID FAM Report Released Date/Time: Nov 15, 2023 11:30 AM Reporting Lab: [facility] [address] [facility] [address] Performing Lab: [facility] [address] [place] [facility] [place] [address] CREATININE 0.91 mg/dL 0.50-1.50 eGFR(CKD-EPI 2020) 86 [...] Feb 21, 2024 10:15 AM VA-TOBACCO USE GRADES 1 THRU 6 VISITING TEACHER NO [facility] Feb 21, 2024 10:15 AM VA-TOBACCO USE MED NO [facility] Feb 21, 2024 10:15 AM VA-TOBACCO USE WI 30 MIN OF WAKEUP [facility] Feb 21, 2024 10:15 AM VA-TOBACCO USER EVERY DAY [facility] Jul 17, 2021 02:27 PM CURRENT SMOKER [facility] Jul 01, 2021 08:55 PM VA-VAAES TOBACCO U SE CURRENT NRT DECLINE [facility] Jul 01, 2021 02:41 PM CURRENT SMOKER RE[facility] Dec 08, 2020 08:45 [...] Source Nov 18, 2017 ADVANCE DIRECTIVE REBECCARADHA [facility] Jul 08, 2017 ADVANCE DIRECTIVE DISCUSSION ROJASPURNIMA VILLAFUERTE [facility] Radiology Reports: +/- [...] CTA ABDOMEN AND PE LVIS: GALINA LOYD [id number] -1945 M Exm Date: MAY 04, 2024@12:30 Req Phys: VIMAL FAM Pat Loc: [facility] VASCULAR 15 M3RH (Req'g Lo Img Loc: CT SCAN (OOS) Service: [place] [address] (Case [id number] COMPLETE) CTA ABDOMEN AND PELVIS (CT Detailed) CPT:97590 Contrast Media : Non-ionic Iodinated Reason for [...] 05, 2024 Date Verified: MAY 05, 2024 Engineer Process E-Sig:/ES/NÉSTOR PASCUAL Report: CTA ABDOMEN AND PELVIS [...] REQUIRED Primary Interpreting Staff: NÉSTOR PASCUAL, RADIOLOGIST (Engineer Process) /NÉSTOR CONNER [facility] Encounter Notes: All associated encounter notes This section contains the clinical notes associated to the Encounter. Date/Time Encounter Note(s) Provider Source Apr 13, 2024 04:16 PM ADMINISTRATIVE NOT E: LOCAL TITLE: Administrative Note/Telehealth STANDARD TITLE: ADMINISTRATIVE NOTE DATE OF NOTE: APR 13, 2024@16:16 ENTRY DATE: APR 13, 2024@16:16:27 AUTHOR: ADITI GARCIA EXP COSIGNER: URGENCY: STATUS: COMPLETED Call out to patient to schedule TH WOUND f/u and TH NUTRITION f/u appointment. Spouse reached. Negotiated and scheduled.... on 05/16/24 @ 10:00am AND 05/08/24 @ 2:30PM. /vivian/ ADITI GARCIA Health Assembler [employer] Signed: 04/13/2024 16:17 ADITI GARCIA [facility]
--- OUTSIDE RECORDS SUMMARY | 2024-05-24 19:23 | XMS_ITS | Encounter Summary ---
Author Name [place] Address [address] [place] [address] Care Team Providers Care Crane Hoist Or Lift Operator Name Role Phone KYRA VELASQUEZ Primary [...] Ervin's Name Patient's Relationship to Policy Ervin [facility] (WNR) MEDICARE [facility](W NR) * Aug 23, 2023 [id number] [phone] ANNALISA LOYD ITE PATIENT [facility] (WNR) MEDICARE ADVANTAGE [facility] (WNR) Aug 23, 2020 [id number] [phone] ANNALISA LOYD ITE PATIENT [facility] (WNR) MEDICARE ADVANTAGE [facility](W NR) Aug 23, 2012 [id number] [id number] [phone] ANNALISA LOYD PATIENT Selected Encounter This [...] 2017 ADVANCE DIRECTIVE RADHA FERNANDEZ [facility] Jul 08, 2017 ADVANCE DIRECTIVE DISCUSSION PURNIMA ROJAS [facility]
--- OUTSIDE RECORDS SUMMARY | 2024-05-24 19:23 | XMS_ITS ---
Author Name [place] Address [address] [place] [address] Care Team Providers Care Wood Grinder Operator Name Role Phone KYRA VELASQUEZ Primary [...] Policy Ervin's Name Patient's Relationship to Policy Revin [facility] (WNR) MEDICARE ADVANTAGE MCR(W NR) * Aug 23, 2023 [id number] ANNALISA LOYD ITE PATIENT [facility] (WNR) MEDICARE ADVANTAGE [facility] (WNR) Aug 23, 2020 [id number] [phone] ANNALISA LOYD ITE PATIENT [facility] (WNR) MEDICARE ADVANTAGE MCR(W NR) Aug 23, 2012 [id number] [phone] ANNALISA LOYD ITE PATIENT Selected Encounter This section includes the information on record at [place] for the Encounter. Date/Time Encounter Type Encounter Description Reason Pro vider Source Apr 08, 2024 10:07 AM Outpatient Encounter ADMIN PAT ACTIVTIES (MASNONCT) IHE Encounter Template Text not used by [place] Plan of Treatment: Future Appointments (+ 6 [...] AMBULATORY - NONE [place] [facility] Apr 11, 2024 10:00 AM AMBULATORY - SURGERY [facility] Apr 11, 2024 10:01 AM [place] [facility] Apr 21, 2024 10:30 AM AMBULATORY - NONE [place] [facility] May 03, 2024 02:30 PM [place]ORY [place] [facility] May 04, 2024 10:30 AM [place]ORY [place] [facility] May 04, 2024 11:00 AM AMBULATORY [place] [facility] May 04, 2024 12:30 PM AMBULATORY - NONE [place] [facility] May 04, 2024 01:00 PM AMBUL[place]ORY [place] [facility] May 08, 2024 02:30 PM AMBULATORY - MEDICINE [facility] May 08, 2024 02:31 PM AMBULATORY - NONE [place] [facility] May 16, 2024 10:00 AM AMBULATORY - SURGERY [facility] May 16, 2024 10:01 AM AMBUL[place]ORY [place] [facility] May 19, 2024 08:00 AM AMBULATORY - NONE [place] [facility] May 26, 2024 10:00 AM AMBULATORY - NONE [place] [facility] Jun 15, 2024 09:00 AM AMBULATORY - NONE [place] [facility] Aug 29, 2024 10:30 AM AMBULATORY - NONE [place] [facility] Aug 29, 2024 11:15 AM AMBULATORY [place] [facility] Active, Pending, and Scheduled Orders This section includes a listing of several types of active, pending, and scheduled orders, including clinic medications orders, diagnostic test orders, procedure orders and consult orders; where the start date of the order is 45 days before the date of the Encounter or 45 days after the date of theEncounter. The data comes from all [place] treatment facilities. Test Date/Time Test Type Test Details Facility Name Mar 17, 2024 11:23 AM Consult Order COMMUNITY CARE-ACUTE REHAB Cons Motion Picture Cameraman's [facility] Apr 06, 2024 04:04 PM Consult Order COMMUNITY CARE-ALLERGY [facility] Motion Picture Cameraman[facility] May 03, 2024 12:00 AM Laboratory - Chemi stry Order URORISK DIAGNOSTIC PROFILE(Q) 24H RENAL STONE KIT 24H URINE SP [facility] May 17, 2024 02:27 PM Consult Order CAREGIVER SUPPORT PROGRAM OUTPT Cons Motion Picture Cameraman's [facility] May 19, 2024 12:44 PM Consult Order COMMUNITY CARE-PALLIATIVE CARE [facility] Motion Picture Cameraman's [facility] Lab Results: +/- 30 days of the encounter This section includes the Chemistry and Hematology Lab Results on record with [place] for the patient. Radiology Reports and Pathology Reports are provided separately, in subsequent sections. Lab Results This section contains the Chemistry/Hematology Results that were resulted 30 days before or 30 daysafter the date of the Encounter. Date/Time Source Result Type Result - Unit Interpretation Reference Range Comment May 04, 2024 10:[address] [facility] UREA NITROGEN Specimen Type: PLASMA Comment: , Tests performed on [employer] Moses [id number] ([id number]) Ordering Provider: DAVID FAM Report Released Date/Time: Nov 15, 2023 11:30 AM Reporting Lab: [facility] [address] [facility] [place] [address] Performing Lab: [facility] [address] [facility] [place] [address] UREA NITROGEN 10 mg/dL 03-16May 04, 2024 10:[address] [facility] CREATININE WITH eGFR PANEL Specimen Type: PLASMA Comment: , Tests performed on [employer] SN:[id number] (405) Ordering Provider: DAVID FAM Report Released Date/Time: Nov 15, 2023 11:30 AM Reporting Lab: SONYA GAYLE [facility] [address] [facility] [address] Performing Lab: SONYA PINON [facility] [address] [facility] [address] CREATININE 0.91 mg/dL 0.50-1.50 eGFR(CKD-EPI 2020) 86 [...] 2024 10:15 AM VA-TOBACCO USER EVERY DAY [facility] Tobacco Use History This section includes a history of the smoking, or tobacco-related health factors, that were collected on or before the date of the Encounter. The data comes from the [place] facility where the Encounter took place. Date/Time Smoking Status/Tobacco Use Comment F acility Feb 21, 2024 10:15 AM VA-TOBACCO USE ADVICE [facility] Feb 21, 2024 10:15 AM VA-TOBACCO USE INTERNET ARCHITECT NO [facility] Feb 21, 2024 10:15 AM VA-TOBACCO USE MED NO [facility] Feb 21, 2024 10:15 AM VA-TOBACCO USE [place] [address] [facility] Feb 21, 2024 10:15 AM VA-TOBACCO USER EVERY DAY [facility] Jul 17, 2021 02:27 PM CURRENT SMOKER REINIER GAYLE [facility] Jul 01, 2021 08:55 PM VA-VAAES [...] 2020 06:58 PM VA-TOBACCO FORMER USER [facility] Apr 04, 2015 03:47 PM CURRENT SMOKER Less than a pack a day [facility] Apr 04, 2015 03:47 PM V1-PT NOT INTEREST ED IN QUIT TOBACCO USE [facility] Advance Directives: All historical and current [...] DIRECTIVE DISCUSSION PURNIMA ROJAS [facility] Radiology Reports: +/- 30 days of [...] CTA ABDOMEN AND PE LVIS: GALINA LOYD [id number] -1945 M Exm Date: MAY 04, 2024@12:30 Req Phys: VIMAL FAM Pat Loc: [facility] VASCULAR 15 M3RH (Req'g Lo Img Loc: CT SCAN (OOS) Service: Unknown [facility] [place] [address] (Case [id number] COMPLETE) CTA ABDOMEN AND PELVIS (CT Detailed) CPT:80361 Contrast Media : Non-ionic Iodinated Reason for [...] 05, 2024 Date Verified: MAY 05, 2024 Heavy Equipment Field Mechanic E-Sig:/ES/NÉSTOR PASCUAL Report: CTA ABDOMEN AND PELVIS [...] REQUIRED Primary Interpreting Staff: NÉSTOR PASCUAL, RADIOLOGIST (Heavy Equipment Field Mechanic) /NÉSTOR CONNER [facility] Encounter Notes: All associated encounter notes This section contains the clinical notes associated to the Encounter. Date/Time Encounter Note(s) Provider Source Apr 08, 2024 10:07 AM ADMINISTRATIVE NOT E: LOCAL TITLE: [facility]: SCHEDULING ADMINISTRATION STANDARD TITLE: ADMINISTRATIVE NOTE DATE OF NOTE: APR 08, 2024@10:07 ENTRY DATE: APR 08, 2024@10:07:39 AUTHOR: RODOLFO SMITH EXP COSIGNER: URGENCY: STATUS: COMPLETED Verify Patient Demographics Successfully verified patient demographics Transferred to [facility] triage nurse line /vivian/ RODOLFO NIELSENN 2 [facility] AMSA Signed: 04/08/2024 10:10 RODOLFO SMITH [facility]
--- OUTSIDE RECORDS SUMMARY | 2024-05-24 19:23 | XMS_ITS | Encounter Summary ---
Author Name [facility] [place] Organization [place] Address [address] [place] [address] Care Team Providers Care Tubing Assembler Name Role Phone KYRA VELASQUEZ Primary [...] Ervin's Name Patient's Relationship to Policy Ervin [facility] (WNR) MEDICARE ADVANTAGE MCR(W NR) * Aug 23, 2023 [id number] ANNALISA LOYD ITE PATIENT [facility] (WNR) MEDICARE ADVANTAGE [facility] (WNR) Aug 23, 2020 [id number] [phone] ANNALISA LOYD ITE PATIENT [facility] (WNR) MEDICARE ADVANTAGE MCR(W NR) Aug 23, 2012 [id number] ANNALISA LOYD ITE PATIENT Selected Encounter This section includes the information on record at [place] for the Encounter. Date/Time Encounter Type Encounter Description Reason Pro vider Source Apr 19, 2024 11:04 AM Outpatient Encounter ADMIN PAT ACTIVTIES (MASNONCT) IHE Encounter Template Text not used by [place] Plan of Treatment: Future Appointments (+ 6 months) and Future Tests (+/- 45 days) The Plan of Treatment section includes future care activities for the patient from [facility] [place] [facility] This section includes future appointments and future orders which are active, pending or scheduled. Future Appointments This section includes appointments that were scheduled to occur 6 months from the date of the Encounter, up to a maximum of 20 appointments. The data comes from all [facility] facilities. Appointment Date/Time Appointment Type Appointme nt Facility Name Apr 21, 2024 10:30 AM AMBULATORY - NONE [place] [facility] May 03, 2024 02:30 PM AMBUL[place]ORY [place] [facility] May 04, 2024 10:30 AM AMBULATORY - MEDICINE [facility] E N[place] T [facility] May 04, 2024 11:00 AM AMBUL[place]ORY - [place] [facility] May 04, 2024 12:30 PM AMBULATORY - NONE [place] [facility] May 04, 2024 01:00 PM AMBULATORY - [place] [facility] May 08, 2024 02:30 PM AMBULATORY - MEDICINE [facility] May 08, 2024 02:31 PM AMBULATORY - NONE [place] [facility] May 16, 2024 10:00 AM AMBULATORY - SURGERY [facility] May 16, 2024 10:01 AM AMBUL[place] - [place] [facility] May 19, 2024 08:00 AM AMBULATORY - NONE [place] [facility] May 26, 2024 10:00 AM AMBULATORY - NONE [place] [facility] Jun 15, 2024 09:00 AM AMBULATORY - NONE [place] [facility] Aug 29, 2024 10:30 AM AMBULATORY - NONE [place] [facility] Aug 29, 2024 11:15 AM AMBULATORY - [place] [facility] Active, Pending, and Scheduled Orders This section includes a listing of several types of active, pending, and scheduled orders, including clinic medications orders, diagnostic test orders, procedure orders and consult orders; where the start date of the order is 45 days before the date of the Encounter or 45 days after the date of theEncounter. The data comes from all [place] treatment facilities. Test Date/Time Test Type Test Details Facility Name Mar 17, 2024 11:23 AM Consult Order COMMUNITY CARE-ACUTE REHAB Cons Lightning Rod Ere[facility] Choice [facility] Apr 06, 2024 04:04 PM Consult Order COMMUNITY CARE-ALLERGY Cons Lightning Rod Erector[facility] May 03, 2024 12:00 AM Laboratory - Chemi stry Order URORISK DIAGNOSTIC PROFILE(Q) 24H RENAL STONE KIT 24H URINE SP [facility] May 17, 2024 02:27 PM Consult Order CAREGIVER SUPPORT PROGRAM OUTPT Cons Lightning Rod [facility] May 19, 2024 12:44 PM Consult Order COMMUNITY CARE-PALLIATIVE CARE Cons Lightning Rod Erector[facility] Lab Results: +/- 30 days [...] Type: PLASMA Comment: , Tests performed on Revolver Moses [id number]) Ordering Provider: DAVID FAM Report Released Date/Time: Nov 15, 2023 11:30 AM Reporting Lab: [facility] [address] [place] [facility] [place] [address] Performing Lab: [facility] [address] [place] [facility] [place] [address] UREA NITROGEN 10 mg/dL -May 04, 2024 10:[address] [facility] CREATININE WITH eGFR PANEL Specimen Type: PLASMA Comment: , Tests performed on Revolver Lopes [id number] ([id number]) Ordering Provider: DAVID FAM Report Released Date/Time: Nov 15, 2023 11:30 AM Reporting Lab: [facility] [address] [facility] [address] Performing Lab: [facility] [address] [place] [facility] [place] [address] CREATININE 0.91 mg/dL 0.50-1.50 eGFR(CKD-EPI 2020) 86 Social History: Smoking Status (Most current) and Tobacco Use (All prior to encounter date) This section includes the most current, and the historical, smoking and tobacco- related health factors from the [place] facility where the Encounter took place. Current Smoking Status This section includes the most current smoking, or tobacco-related health factor, from the [place] facility where the Encounter took place. Date/Time Current Smoking Status Comment Facil ity Feb 21, 2024 10:15 AM VA-TOBACCO USER EVERY DAY [facility] Tobacco Use History This section includes a history of the smoking, or tobacco-related health factors, that were collected on or before the date of the Encounter. The data comes from the [place] facility where the Encounter took place. Date/Time Smoking Status/Tobacco Use Comment F acility Feb 21, 2024 10:15 AM VA-TOBACCO USE ADVICE [facility] Feb 21, 2024 10:15 AM VA-TOBACCO USE SANDFILL OPERATOR SURFACE NO [facility] Feb 21, 2024 [...] 01, 2021 02:41 PM CURRENT SMOKER REINIER [facility] Dec 08, 2020 08:45 [...] this document. The data comes from all [place] facilities. Date Advance Directives Provider Source Nov 18, [address] [facility] Jul 08, 2017 ADVANCE DIRECTIVE DISCUSSION ROJASPURNIMA VILLAFUERTE [facility] Radiology Reports: +/- 30 [...] the Encounter. The data comes from all [place] treatment facilities. Date/Time Radiology Report Provider Source May 04, 2024 12:30 PM CTA ABDOMEN AND PE LVIS: GALINA LOYD [id number] -1945 M Exm Date: MAY 04, 2024@12:30 Req Phys: VIMAL FAM Pat Loc: [facility] VASCULAR 15 M3RH (Req'g Lo Img Loc: CT SCAN (OOS) Service: [place] [address] (Case [id number] COMPLETE) CTA ABDOMEN AND PELVIS (CT Detailed) CPT:50021 Contrast Media : Non-ionic Iodinated Reason for [...] 05, 2024 Date Verified: MAY 05, 2024 Regional Education Manager E-Sig:/ES/NÉSTOR PASCUAL Report: CTA ABDOMEN AND [...] REQUIRED Primary Interpreting Staff: NÉSTOR PASCUAL, RADIOLOGIST (Regional Education Manager) /NÉSTOR CONNER [facility] Encounter Notes: All associated encounter notes This section contains the clinical notes associated to the Encounter. Date/Time Encounter Note(s) Provider Source Apr 19, 2024 11:04 AM ADMINISTRATIVE NOT E: LOCAL TITLE: CCC: SCHEDULING ADMINISTRATION STANDARD TITLE: ADMINISTRATIVE NOTE DATE OF NOTE: APR 19, 2024@11:04:54 ENTRY DATE: APR 19, 2024@11:04:54 AUTHOR: PAULETTE JUAREZ COSIGNER: URGENCY: STATUS: COMPLETED CCC: SCHEDULING ADMINISTRATION Has ADDENDA Patient Demographics Patient Name: GALINA LOYD Patient Primary Phone: [phone] Patient Primary Address: [address] [place] [address] Patient : 1945 Patient Age: 78 Call Back Number: [phone] Caller/Recipient Relation to Patient: Other If Other Describe Relation to Patient: Daughter Caller Name: Bertha Administrative Administrative Note Reason: Outside Care Performed Administrative Note Comments: Broke his hip and was inpatient, then went to rehab. When he was there, he had body sores and none were documented including upon discharge. She is following up with the Director of the facility and wants to make sure that she has all of her ducks in a row. Please return her call at your earliest chance to discuss timeline regarding wound healing and presence thank you. IMPORTANT: This note was created by [facility] Clinical Contact Center staff. Please do not alert the staff member by adding them as a signer for future communications. Alerts are not monitored by this user. /vivian/ PAULETTE LOPEZ 1 [facility] AMSA Signed: 04/19/2024 11:04 Receipt Acknowledged By: 04/20/2024 08:27 /es/ KYRA VELASQUEZ M.D INTERNAL MEDICINE, [facility] 04/19/2024 11:17 /es/ EFRAÍN VALIENTE for OJ Curtis LOUISE 04/19/2024 12:28 /es/ DANIELLE TOBAR, RN, CWCHRISTO 04/20/2024 ADDENDUM STATUS: COMPLETED will defer to wound clinic reevaluation in one month /vivian/ KYRA RON, M.D INTERNAL MEDICINE, [facility] Signed: 04/20/2024 08:27 PAULETTE JUAREZ [facility]
--- OUTSIDE RECORDS SUMMARY | 2024-05-24 19:23 | XMS_ITS | Encounter Summary ---
Author Name [facility] [place] Address [address] [place] [address] Care Team Providers Care Student Support Services Director Name Role Phone RON KYRA Primary Care [...] Ervin's Name Patient's Relationship to Policy Ervin [facility] (WNR) MEDICARE ADVANTAGE [facility](W NR) * Aug 23, 2023 [id number] ANNALISA LOYD ITE PATIENT [facility] MCR (WNR) MEDICARE ADVANTAGE MCR (WNR) Aug 23, 2020 [id number] [phone] ANNALISA LOYD ITE PATIENT [facility] M[facility] (WNR) MEDICARE ADVANTAGE [facility](W NR) Aug 23, 2012 [id number] ANNALISA LOYD ITE PATIENT Selected Encounter This section includes the information on record at [place] for the Encounter. Date/Time Encounter Type Encounter Description Reason Pro vider Source Apr 08, 2024 10:54 AM Outpatient Encounter TELEPHONE TRIAGE IHE Encounter Template Text not used by [place] Plan of Treatment: Future Appointments (+ 6 months) and Future Tests (+/- 45 days) The Plan of Treatment section includes future care activities for the patient from all [place] [facility]. This section includes future appointments [...] AMBULATORY - NONE [place] [facility] Apr 11, 2024 10:00 AM AMBULATORY - SURGERY [facility] Apr 11, 2024 10:01 AM [place]UL[place] [facility] Apr 21, 2024 10:30 AM AMBULATORY - NONE [place] [facility] May 03, 2024 02:30 PM AMBULATORY - [place] [facility] May 04, 2024 10:30 AM AMBULATORY - [place]ICINE [place] [facility] May 04, 2024 11:00 AM AMBULATORY - [place]GERY [place] [facility] May 04, 2024 12:30 PM AMBULATORY - NONE [place] [facility] May 04, 2024 01:00 PM AMBULATORY - [place] [facility] May 08, 2024 02:30 PM AMBULATORY - MEDICINE [facility] May 08, 2024 02:31 PM AMBULATORY - NONE [place] [facility] May 16, 2024 10:00 AM AMBULATORY - SURGERY [facility] May 16, 2024 10:01 AM AMBULATORY - [place] [facility] May 19, 2024 08:00 AM AMBULATORY - NONE [place] [facility] May 26, 2024 10:00 AM AMBULATORY - NONE [place] [facility] Jun 15, 2024 09:00 AM AMBULATORY - NONE [place] [facility] Aug 29, 2024 10:30 AM AMBULATORY - NONE [place] [facility] Aug 29, 2024 11:15 AM AMBULATORY - [place] [facility] Active, Pending, and Scheduled Orders [...] 11:23 AM Consult Order COMMUNITY CARE-ACUTE REHAB [facility] Apr 06, 2024 04:04 PM Consult Order COMMUNITY CARE-ALLERGY [facility] May 03, 2024 12:00 AM Laboratory - Chemi stry Order URORISK DIAGNOSTIC PROFILE(Q) 24H RENAL STONE KIT 24H URINE SP [facility] May 17, 2024 02:27 PM Consult Order CAREGIVER SUPPORT PROGRAM OUTPT [facility] Degreaser's [facility] May 19, 2024 12:44 PM Consult Order COMMUNITY CARE-PALLIATIVE CARE [facility] Lab Results: +/- 30 days of the encounter This section includes the Chemistry and Hematology Lab Results on record with [place] for the patient. Radiology Reports and Pathology Reports are provided separately, in subsequent sections. Lab Results This section contains the Chemistry/Hematology Results that were resulted 30 days before or 30 daysafter the date of the Encounter. Date/Time Source Result Type Result - Unit Interpretation Reference Range Comment May 04, 2024 10:32 AM [facility] UREA NITROGEN Specimen Type: PLASMA Comment: , Tests performed on [place] [employer] Moses [id number] ([id number]) Ordering Provider: DAVID FMA Report Released Date/Time: Nov 15, 2023 11:30 AM Reporting Lab: [facility] [address] [place] [facility] [place] [address] Performing Lab: [facility] [address] [place] [facility] [place] [place] [place] [address] UREA NITROGEN 10 mg/dL 03-16May 04, 2024 10:32 AM [facility] CREATININE WITH eGFR PANEL Specimen Type: PLASMA Comment: , Tests performed on [place] [employer] Lopes [id number] (405) Ordering Provider: DAVID FAM Report Released Date/Time: Nov 15, 2023 11:30 AM Reporting Lab: [facility] [address] [facility] [address] Performing Lab: SON[facility] GAYLE [facility] [address] [facility] [address] CREATININE 0.91 mg/dL 0.50-1.50 eGFR(CKD-EPI 2020) 86 [...] 10:15 AM VA-TOBACCO USER EVERY DAY [facility] Tobacco Use History This section includes a history of the smoking, or tobacco-related health factors, that were collected on or before the date of the Encounter. The data comes from the [place] facility where the Encounter took place. Date/Time Smoking Status/Tobacco Use Comment F acility Feb 21, 2024 10:15 AM VA-TOBACCO USE ADVICE [facility] Feb 21, 2024 10:15 AM VA-TOBACCO USE MASTER CONTROL SUPERVISOR NO [facility] Feb 21, 2024 10:15 AM VA-TOBACCO USE MED NO [facility] Feb 21, 2024 10:15 AM VA-TOBACCO USE WI 30 MIN OF WAKEUP [facility] Feb 21, 2024 10:15 AM VA-TOBACCO USER EVERY DAY [facility] Jul 17, 2021 02:27 PM CURRENT SMOKER REINIER Bhatia [facility] Jul 01, 2021 08:55 PM VA-VAAES TOBACCO U SE CURRENT NRT DECLINE [facility] Jul 01, 2021 02:41 PM CURRENT SMOKER REINIER Bhatia [facility] Dec 08, 2020 08:45 [...] the Encounter. The data comes from all [place] treatment facilities. 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 Date/Time Encounter Note(s) Provider Source Apr 08, 2024 10:54 AM RN PROGRESS NOTE: LOCAL TITLE: CCC: CLINICAL TRIAGE STANDARD TITLE: RN PROGRESS NOTE DATE OF NOTE: APR 08, 2024@10:54:10 ENTRY DATE: APR 08, 2024@10:54:10 AUTHOR: MICKI WILLINGHAMIGNER: URGENCY: STATUS: COMPLETED CCC: CLINICAL TRIAGE Has ADDENDA Patient Demographics Patient Name: GALINA LOYD Patient Primary Address: [address] [place] [address] Patient Primary Phone: [phone] Patient : 1945 Patient Age: 78 Caller/Recipient Relation to Patient: Other If Other Describe Relation to Patient: Spouse Caller Name: Darrel Emergency Contact: DARREL LOYD Triage Summary Conducted triage/discussed symptoms Pain Score: 0 (No Pain) Utilized the Triage Tool: Yes Chief Complaint: Vomiting System WHEN: Self-care Nurse's Recommendation / WHEN: Within 3 Days System WHERE: Home Nurse's Recommendation / WHERE: Clinic/[facility] Patient Disposition Patient/Caregiver agrees to plan of care: Yes Patient WHERE: Clinic/[facility] Patient WHEN: Within 3 days Nursing Plan and Disposition Other course(s) of action Generated msg to PACT/Provider Provided guidance for worsening symptoms: *Caller/Patient* advised to call facilities [place] Clinical Contact Center or seek immediate medical attention for new or worsening symptoms Nurse Summary Nurse Summary: spouse ( Darrel) called said the vomited once this morning ( undigested food) after eating some zucchini bread and drinking water. He is currently taking two antibiotics for a wound infection ( doxycycline and Levofloxacin). He took his morning dose of doxycycline this morning before eating. He is feeling ok now, just a little tired and sleepy. Has generalized weakness since last hospitalization and recent rebab stay, no new weakness. Temp 97.4F, she does does have equipment to check BP and HR. He has visiting nurse who comes to do dressing change, she is coming again on Wednesday. Spouse said he has no pain, denies any chest pain, shortness of breath, confusion, no more vomiting, he did not choke or aspirate when he vomited. He is able to talk and make needs knows, she will monitor him closely for the weekend. If he vomits again or has a fever, she will call the ambulance to take him to the ER for further evaluation. Advised to please give him a small meal before taking the antibiotics to help with common side effect of nausea and vomiting and she verbalized understanding. Please follow up with this on Wednesday. Spouse encouraged and advise to call us the CCC anytime for further questions, concerns or symptoms. She appreciated the help and verbalized understanding. Clinical Contact Center Codes Clinic/Location: V1 [facility] PHONE CCC RN Decision Support System Output: Triage Complete Triage Date: 04/08/2024, 10:30 AM Triage Note: Decision Support Tool Used: [facility] Phone Triage Sat, 08 Apr 2024 14:23:40 +0000 [facility] Demographics 78 y/o Male Results CC: Vomiting Software suggested: Self-care Software suggested follow-up location: Home, consider virtual care Values and Measures Temperature: 97.4 Fahrenheit Duration of CC: 1 Hours Positive Responses HPI: vomiting, onset after starting new medication HPI: weakness, fatigue, more than usual MEDS: taking a medication that may increase risk for drug toxicity MEDS: taking prescription medications daily VS: pulse not taken Negative Responses Denies: HPI: abdominal pain Denies: HPI: brown urine Denies: HPI: chest pain Denies: HPI: constipation, severe Denies: HPI: cough, new or worsening Denies: HPI: dermal icterus Denies: HPI: diaphoresis, with vomiting, duration longer than 10 minutes Denies: HPI: diarrhea Denies: HPI: discomfort in the neck, jaw, shoulder or arm Denies: HPI: dyspnea, new or worsening Denies: HPI: dysuria Denies: HPI: emesis, coffee grounds Denies: HPI: fever, subjective Denies: HPI: headache Denies: HPI: heartburn, episodic Denies: HPI: hematemesis Denies: HPI: hematochezia Denies: HPI: hematuria Denies: HPI: increased urinary frequency Denies: HPI: lightheadedness, duration longer than 10 minutes, with the vomiting Denies: HPI: lightheadedness, orthostatic Denies: HPI: melena Denies: HPI: myalgias Denies: HPI: nasal congestion, duration longer than 2 days Denies: HPI: no oral fluids, for longer than 6 hours Denies: HPI: oliguria Denies: HPI: rhinorrhea, yellow or brown Denies: HPI: scleral icterus Denies: HPI: sore throat Denies: HPI: urinary urgency, constant Denies: HPI: vertigo Denies: HPI: vomiting, episodic, duration longer than 2 weeks Denies: HPI: vomiting, more than 6 episodes within past 8 hours Denies: HPI: weakness, unable to stand or get out of bed Denies: MEDS: carbamazepine Denies: MEDS: lithium Denies: MEDS: phenytoin Denies: MEDS: theophylline Denies: MEDS: valproic acid Denies: PMH: diabetes Denies: PMH: gallbladder disease Denies: PMH: heart disease Denies: PMH: UTI Denies: PSH: abdominal surgery Denies: SOC: ETOH use IMPORTANT: This note was created by [facility] Clinical Contact Center staff. Please do not alert the staff member by adding them as a signer for future communications. Alerts are not monitored by this user. /vivian/ MICKI LOPEZ 2 [facility] batch heat treat operator Signed: 04/08/2024 10:54 Receipt Acknowledged By: 04/10/2024 13:53 /vivian/ KYRA VELASQUEZ M.D INTERNAL MEDICINE, [facility] 04/10/2024 14:03 /es/ JENIFER SHANE LPN for OJ A PETTIGLIO 04/10/2024 ADDENDUM STATUS: COMPLETED called and spoke with pt's spouse Darrel. she states n/v improved when he started taking abx on full stomach. she is awaiting wound clinic call /vivian/ KYRA VELASQUEZ M.D INTERNAL MEDICINE, [facility] Signed: 04/10/2024 13:54 MICKI WILLINGHAM [facility]
--- OUTSIDE RECORDS SUMMARY | 2024-05-24 19:23 | XMS_ITS | Encounter Summary ---
Author Name Department of Vetera Affairs ([place]) Organization Department of Vetera Affairs [place]) Address [address] [place] [address] Care Team Providers Care Manufacturer'S Service Representative Name Role Phone RON KYRA Primary Care [...] Patient's Relationship to Policy Ervin [facility] (WNR) MEDICARE ADVANTAGE [facility](W NR) * Aug 23, 2023 [id number] ANNALISA LOYD ITE PATIENT [facility] MCR (WNR) MEDICARE ADVANTAGE MCR (WNR) Aug 23, 2020 [id number] [phone] ANNALISA LOYD ITE PATIENT [facility] (WNR) MEDICARE ADVANTAGE [facility](W NR) Aug 23, 2012 [id number] ANNALISA LOYD ITE PATIENT Selected Encounter This section includes the information on record at MD for the Encounter. 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 This section includes future appointments and [...] AMBULATORY - NONE [place] [facility] May 03, 2024 02:30 PM [place] [facility] May 04, 2024 10:30 AM AMBULATORY - [place]IC[place] [facility] May 04, 2024 11:00 AM [place]ORY [place] [facility] May 04, 2024 12:30 PM AMBULATORY - NONE [place] [facility] May 04, 2024 01:00 PM AMBUL[place]ORY [place] [facility] May 08, 2024 02:30 PM AMBULATORY - MEDICINE [facility] May 08, 2024 02:31 PM AMBULATORY - NONE [place] [facility] May 16, 2024 10:00 AM AMBULATORY - SURGERY [facility] May 16, 2024 10:01 AM [place] [facility] May 19, 2024 08:00 AM AMBULATORY - NONE [place] [facility] May 26, 2024 10:00 AM AMBULATORY - NONE [place] [facility] Jun 15, 2024 09:00 AM AMBULATORY - NONE [place] [facility] Aug 29, 2024 10:30 AM AMBULATORY - NONE [place] [facility] Aug 29, 2024 11:15 AM AMBULATORY - SURGERY [facility] [...] AM Consult Order COMMUNITY CARE-ACUTE REHAB Cons Stripper Soft Plastic's [facility] Apr 06, 2024 04:04 PM Consult Order COMMUNITY CARE-ALLERGY [facility] Stripper Soft Plastic's [facility] May 03, 2024 12:00 AM Laboratory - Chemi stry Order URORISK DIAGNOSTIC PROFILE(Q) 24H RENAL STONE KIT 24H URINE SP [facility] May 17, 2024 02:27 PM Consult Order CAREGIVER SUPPORT PROGRAM OUTPT Cons Stripper Soft Plastic's [facility] May 19, 2024 12:44 PM Consult Order COMMUNITY CARE-PALLIATIVE CARE [facility] Stripper Soft Plastic's [facility] Lab Results: +/- 30 days [...] Range Comment May 04, 2024 10:32 AM [facility] UREA NITROGEN Specimen Type: PLASMA Comment: , Tests performed on MVP Vault Moses SN:[id number] (405) Ordering Provider: DAVID FAM Report Released Date/Time: Nov 15, 2023 11:30 AM Reporting Lab: [facility] [address] [facility] [place] [address] Performing Lab: [facility] [address] [place] [place] [address] UREA NITROGEN 10 mg/dL 03-16May 04, 2024 10:32 AM [facility] CREATININE WITH eGFR PANEL Specimen Type: PLASMA Comment: , Tests performed on MVP Vault Lopes SN:[id number] (405) Ordering Provider: DAVID FAM Report Released Date/Time: Nov 15, 2023 11:30 AM Reporting Lab: [facility] [address] [facility] [address] Performing Lab: [facility] [address] [facility] [address] CREATININE 0.91 mg/dL 0.50-1.50 eGFR(CKD-EPI 2020) 86 [...] USE WI 30 MIN OF WAKE UP [facility] Tobacco Use History This section includes a history of the smoking, or tobacco-related health factors, that were collected on or before the date of the Encounter. The data comes from the MD facility where the Encounter took place. Date/Time Smoking Status/Tobacco Use Comment F acility May 14, 2022 09:30 AM VA-TOBACCO USE ADVICE [facility] May 14, 2022 09:30 AM VA-TOBACCO USE DEVICE PROCESSING ENGINEER NO [facility] May 14, 2022 09:30 AM VA-TOBACCO USE MED NO [facility] May 14, 2022 09:30 AM VA-TOBACCO USE WI 30 MIN OF WAKE UP [facility] May 14, 2022 09:30 AM VA-TOBACCO USER EVERY DAY [facility] Jun 27, 2020 09:30 AM VA-TOBACCO FORMER USER [facility] Jun 27, 2020 09:30 AM VA-TOBACCO QUIT < 1 YEAR [facility] December 28, 2018 11:23 AM VA-TOBACCO USE 30 YEARS OR MORE [facility] December 28, 2018 11:23 AM VA-TOBACCO USE ADVICE [facility] December 28, 2018 11:23 AM VA-TOBACCO USE DEVICE PROCESSING ENGINEER NO [facility] December 28, 2018 11:23 AM VA-TOBACCO USE MED NO [facility] December 28, 2018 11:23 AM VA-TOBACCO USE WI 30 MIN OF WAKE UP [facility] December 28, 2018 11:23 AM VA-TOBACCO USER EVERY DAY Jorge A [facility] Aug 10, 2016 09:05 AM CURRENT SMOKER [facility] Aug 10, 2016 09:05 AM V1-PT [...] CTA ABDOMEN AND PE LVIS: GALINA LOYD [id number] -1945 M Exm Date: MAY 04, 2024@12:30 Req Phys: VIMAL FAM Pat Loc: [facility] VASCULAR 15 M3RH (Req'g Lo Img Loc: CT SCAN (OOS) Service: Unknown [facility] [place] [address] (Case [id number] COMPLETE) CTA ABDOMEN AND PELVIS (CT Detailed) CPT:92450 Contrast Media : Non-ionic Iodinated Reason for [...] 05, 2024 Date Verified: MAY 05, 2024 Plate Driller E-Sig:/ES/NÉSTOR PASCUAL Report: CTA ABDOMEN AND PELVIS [...] REQUIRED Primary Interpreting Staff: NÉSTOR PASCUAL, RADIOLOGIST (Plate Driller) /NÉSTOR CONNER [facility] Encounter Notes: All associated encounter notes This section contains the clinical notes associated to the Encounter. Date/Time Encounter Note(s) Provider Source Apr 11, 2024 11:17 AM TELEHEALTH NOTE: LOCAL TITLE: Telehealth Tax Compliance Officer Note STANDARD TITLE: TELEHEALTH NOTE DATE OF NOTE: APR 11, 2024@11:17 ENTRY DATE: APR 11, 2024@11:17:37 AUTHOR: ADITI GARCIA COSIGNER: URGENCY: STATUS: COMPLETED [...] always have the option to drive to [place] to see the provider in person. They [...] through an in-person visit at the nearest MD clinical site offering the requested service, and the patient's right of refusal, at any time, for any Telehealth. Emergency contact information was obtained as follows: Current Location: [facility] Current Address: [address] [place] [address] County: [place] Emergency Contact Name: ADITI GARCIA Emergency Relationship: [facility] Emergency Number: [phone] /vivian/ ADITI GARCIA Health Tax Compliance Officer Signed: 04/11/2024 11:19 ADITI GARCIA OC
--- OUTSIDE RECORDS SUMMARY | 2024-05-24 19:23 | XMS_ITS ---
Author Name Department [place] Organization [place] Address [address] [place] [address] Care Team Providers Care Bmw Service Technician Name Role Phone KYRA VELASQUEZ Primary Care [...] [facility] ([facility] MEDIC[facility] ADVANTAGE [facility](W NR) * Aug 23, 2023 [id number] [phone] ANNALISA LOYD ITE PATIENT [facility] (WNR) MEDICARE ADVANTAGE [facility] (WNR) Aug 23, 2020 [id number] [phone] ANNALISA LOYD ITE PATIENT [facility] (WNR) MEDICARE ADVANTAGE [facility](W NR) Aug 23, 2012 [id number] 03 ANNALISA LOYD ITE PATIENT Selected Encounter This section includes the information on record at [place] for the Encounter. Date/Time Encounter Type Encounter Description Reason Pro vider Source Apr 14, 2024 03:31 PM Outpatient Encounter PRIMARY CARE/MEDICINE IHE Encounter Template Text not used by VA Plan of Treatment: Future Appointments (+ 6 months) and Future Tests (+/- 45 days) The Plan of Treatment section includes future care activities for the patient from all [place] [facility]. This section includes future appointments and future orders which are active, pending or scheduled. Future Appointments This section includes appointments that were scheduled to occur 6 months from the date of the Encounter, up to a maximum of 20 appointments. The data comes from all [facility] facilities. Appointment Date/Time Appointment Type Appointme nt Facility Name Apr 21, 2024 10:30 AM AMBULATORY - NONE [place] [facility] May 03, 2024 02:30 PM AM[place] [facility] May 04, 2024 10:30 AM AMBUL[place]ORY - [place]IC[place] [facility] May 04, 2024 11:00 AM AMBUL[place]ORY - [place] [facility] May 04, 2024 12:30 PM AMBULATORY - NONE [place] [facility] May 04, 2024 01:00 PM AM[place]ORY - [place] [facility] May 08, 2024 02:30 PM AMBULATORY - MEDICINE [facility] May 08, 2024 02:31 PM AMBULATORY - NONE [place] [facility] May 16, 2024 10:00 AM AMBULATORY - SURGERY [facility] May 16, 2024 10:01 AM [place] [facility] May 19, 2024 08:00 AM AMBULATORY - NONE [place] [facility] May 26, 2024 10:00 AM AMBULATORY - NONE [place] [facility] Jun 15, 2024 09:00 AM AMBULATORY - NONE [place] [facility] Aug 29, 2024 10:30 AM AMBULATORY - NONE [place] [facility] Aug 29, 2024 11:15 AM AM[place]UL[place]ORY [place] [facility] Active, Pending, and Scheduled Orders This section includes a listing of several types of active, pending, and scheduled orders, including clinic medications orders, diagnostic test orders, procedure orders and consult orders; where the start date of the order is 45 days before the date of the Encounter or 45 days after the date of theEncounter. The data comes from all [facility]. Test Date/Time Test Type Test Details Facility Name Mar 17, 2024 11:23 AM Consult Order COMMUNITY CARE-ACUTE REHAB Cons Line Out Worker's Choice [facility] Apr 06, 2024 04:04 PM Consult Order COMMUNITY CARE-ALLERGY [facility] May 03, 2024 12:00 AM Laboratory - Chemi stry Order URORISK DIAGNOSTIC PROFILE(Q) 24H RENAL STONE KIT 24H URINE SP [facility] May 17, 2024 02:27 PM Consult Order CAREGIVER SUPPORT PROGRAM OUTPT Cons Line Out Worker's [facility] May 19, 2024 12:44 PM Consult Order COMMUNITY CARE-PALLIATIVE CARE Cons Line Out Worker's [facility] Lab Results: +/- 30 days [...] Range Comment May 04, 2024 10:32 AM [facility] UREA NITROGEN Specimen Type: PLASMA Comment: , Tests performed on [place] TVbeat Lopes SN:[id number] (405) Ordering Provider: DAVID FAM Report Released Date/Time: Nov 15, 2023 11:30 AM Reporting Lab: [facility] [address] [facility] [place] [address] Performing Lab: [facility] [address] [place] [facility] [place] [place] [address] UREA NITROGEN 10 mg/dL 03-16May 04, 2024 10:32 AM [facility] CREATININE WITH eGFR PANEL Specimen Type: PLASMA Comment: , Tests performed on Haute App SN:[id number] (405) Ordering Provider: DAVID FAM Report Released Date/Time: Nov 15, 2023 11:30 AM Reporting [facility]: [facility] [address] [place] [facility] [place] [place] [address] Performing Lab: [facility] [address] [place] [facility] [place] [address] CREATININE 0.91 mg/dL 0.50-1.50 eGFR(CKD-EPI 2020) 86 [...] 2024 10:15 AM VA-TOBACCO USER EVERY DAY [facility] Tobacco Use History This section includes a history of the smoking, or tobacco-related health factors, that were collected on or before the date of the Encounter. The data comes from the [place] facility where the Encounter took place. Date/Time Smoking Status/Tobacco Use Comment F acility Feb 21, 2024 10:15 AM VA-TOBACCO USE ADVICE [facility] Feb 21, 2024 10:15 AM VA-TOBACCO USE FOUNDRY HAND NO [facility] Feb 21, 2024 10:15 AM VA-TOBACCO USE MED NO [facility] Feb 21, 2024 10:15 AM VA-TOBACCO USE WI 30 MIN OF WAKEUP [facility] Feb 21, 2024 10:15 AM VA-TOBACCO USER EVERY DAY [facility] Jul 17, 2021 02:27 PM CURRENT SMOKER [facility] Jul 01, 2021 08:55 PM VA-VAAES TOBACCO U SE CURRENT NRT DECLINE [facility] Jul 01, 2021 02:41 PM CURRENT SMOKER [facility] Dec 08, 2020 08:45 PM VA-TOBACCO USER EVERY DAY [facility] Dec 08, 2020 08:45 PM VA-VAAES TOBACCO U SE CURRENT NRT DECLINE [facility] Dec 08, 2020 06:58 PM VA-TOBACCO FORMER USER [facility] Apr 04, 2015 03:47 PM CURRENT SMOKER Less than a pack a day [facility] Apr 04, 2015 03:47 PM V1-PT NOT INTEREST ED IN QUIT TOBACCO USE [facility] Advance Directives: All historical and current [...] Nov 18, 2017 ADVANCE DIRECTIVE RADHA FERNANDEZ [facility] Jul 08, 2017 ADVANCE DIRECTIVE DISCUSSION PURNIMA ROJAS [facility] Radiology Reports: +/- 30 days of [...] CTA ABDOMEN AND PE LVIS: GALINA LOYD [id number] -1945 M Exm Date: MAY 04, 2024@12:30 Req Phys: VIMAL FAM Pat Loc: [facility] VASCULAR 15 M3RH (Req'g Lo Img Loc: CT SCAN (OOS) Service: Unknown [facility] [place] [address] (Case [id number] COMPLETE) CTA ABDOMEN AND PELVIS (CT Detailed) CPT:62953 Contrast Media : Non-ionic Iodinated Reason for [...] 05, 2024 Date Verified: MAY 05, 2024 Paper Bag Inspector E-Sig:/ES/NÉSTOR PASCUAL Report: CTA ABDOMEN AND PELVIS [...] REQUIRED Primary Interpreting Staff: NÉSTOR PASCUAL, RADIOLOGIST (Paper Bag Inspector) /NÉSTOR [facility] Encounter Notes: All associated encounter notes This section contains the clinical notes associated to the Encounter. Date/Time Encounter Note(s) Provider Source Apr 14, 2024 03:31 PM NONVA NOTE: LOCAL TITLE: NonVA Note STANDARD TITLE: NONVA NOTE DATE OF NOTE: APR 14, 2024@15:31 ENTRY DATE: APR 14, 2024@15:31:21 AUTHOR: JENIFER SHANE EXP COSIGNER: URGENCY: STATUS: COMPLETED [facility] application application is filled out, signed and forwarded to DMAzra /vivian/ JENIFER SHANE LPN Signed: 04/14/2024 15:32 JENIFER SHANE [facility]
[2024-05-24 19:24] LABS: Abs Immature Grans 0.15 10^3/uL (0.0-0.06); Absolute Basophil Count 0.05 10^3/uL (0.0-0.2); Absolute Eosinophil Count 0.12 10^3/uL (0.0-0.7); Absolute Lymphocyte Count 0.95 10^3/uL (1.2-3.4); Absolute Neutrophil Count 14.45 10^3/uL (1.2-6.7); Basophils % 0.3 %; Eosinophils % 0.7 %; HCT 47.2 % (40.0-50.0); HGB 15.3 g/dL (13.5-17.5); Immature Grans % 0.9 %; Lymphocytes % 5.7 %; MCH 30.4 pg (27.0-33.0); MCHC 32.4 % (32.0-36.0); MCV 94 fL (80-95); MPV 8.4 fL (8.0-11.0); Monocytes % 5.4 %; Platelet Count 332 10^3/uL (130-400); RBC 5.04 10^6/uL (4.36-5.78); RDW 14.6 % (11.8-14.1); RDW-SD 50.4 fL; WBC 16.61 10^3/uL (4.4-10.8)
--- OUTSIDE RECORDS SUMMARY | 2024-05-24 19:24 | XMS_ITS | Encounter Summary ---
Author Name [place] Address [address] [place] [address] Care Team Providers Care Paint Grinder Stone Mill Name Role Phone RON KYRA Primary Care [...] Patient's Relationship to Policy Ervin [facility] (WNR) MEDICARE ADVANTAGE [facility](W NR) * Aug 23, 2023 [id number] ANNALISA LOYD ITE PATIENT [facility] (WNR) MEDICARE ADVANTAGE [facility] (WNR) Aug 23, 2020 [id number] [phone] ANNALISA LOYD ITE PATIENT [facility] (WNR) MEDICARE ADVANTAGE [facility](W NR) Aug 23, 2012 [id number] ANNALISA LOYD ITE PATIENT Selected Encounter This section includes the information on record at [place] for the Encounter. Date/Time Encounter Type Encounter Description Reason Pro vider Source Apr 17, 2024 12:00 PM Outpatient Encounter COMMUNITY CARE CONSULT IHE Encounter Template Text not used by VA Plan of Treatment: Future Appointments (+ 6 months) and Future Tests (+/- 45 days) The Plan of Treatment section includes future care activities for the patient from all [place] [facility]. This section includes future appointments and [...] PM AMBULATORY - [place] [facility] May 04, 2024 10:30 AM AMBULATORY - MEDICINE [facility] E ANLIN[place] T [facility] May 04, 2024 11:00 AM AMBULATORY - [place] [facility] May 04, 2024 12:30 PM AMBULATORY - NONE [place] [facility] May 04, 2024 01:00 PM AMBULATORY - [place] [facility] May 08, 2024 02:30 PM AMBULATORY - MEDICINE [facility] May 08, 2024 02:31 PM AMBULATORY - NONE [place] [facility] May 16, 2024 10:00 AM AMBULATORY - SURGERY [facility] May 16, 2024 10:01 AM AMBULATORY - [place]GERY [place] [facility] May 19, 2024 08:00 AM AMBULATORY - NONE [place] [facility] May 26, 2024 10:00 AM AMBULATORY - NONE [place] [facility] Jun 15, 2024 09:00 AM AMBULATORY - NONE [place] [facility] Aug 29, 2024 10:30 AM AMBULATORY - NONE [place] [facility] Aug 29, 2024 11:15 AM AMBULATORY - [place]GERY [place] [facility] Active, Pending, and Scheduled Orders This section includes a listing of several types of active, pending, and scheduled orders, including clinic medications orders, diagnostic test orders, procedure orders and consult orders; where the start date of the order is 45 days before the date of the Encounter or 45 days after the date of theEncounter. The data comes from all [place] treatment [facility]. Test Date/Time Test Type Test Details Facility Name Mar 17, 2024 11:23 AM Consult Order COMMUNITY CARE-ACUTE REHAB Cons Spa Director's [facility] Apr 06, 2024 04:04 PM Consult Order COMMUNITY CARE-ALLERGY [facility] May 03, 2024 12:00 AM Laboratory - Chemi stry Order URORISK DIAGNOSTIC PROFILE(Q) 24H RENAL STONE KIT 24H URINE SP [facility] May 17, 2024 02:27 PM Consult Order CAREGIVER SUPPORT PROGRAM OUTPT Cons Spa Director's [facility] May 19, 2024 12:44 PM Consult Order COMMUNITY CARE-PALLIATIVE CARE Cons Spa Director's [facility] Lab Results: +/- 30 [...] Range Comment May 04, 2024 10:32 AM [facility] UREA NITROGEN Specimen Type: PLASMA Comment: , Tests performed on [employer]TR[employer] SYSTEMS SN:[id number] (405) Ordering Provider: DAVID FAM Report Released Date/Time: Nov 15, 2023 11:30 AM Reporting Lab: [facility] [address] [place] [facility] [place] [address] Performing Lab: [facility] [address] [place] [facility] [place] [address] UREA NITROGEN 10 mg/dL 03-16May 04, 2024 10:32 AM [facility] CREATININE WITH eGFR PANEL Specimen Type: PLASMA Comment: , Tests performed on [employer] SN:[id number] (405) Ordering Provider: DAVID FAM Report Released Date/Time: Nov 15, 2023 11:30 AM Reporting Lab: [facility] [address] [place] [facility] [place] [address] Performing Lab: [facility] [address] [place] [facility] [place] [address] CREATININE 0.91 mg/dL 0.50-1.50 eGFR(CKD-EPI 2020) 86 [...] VA-TOBACCO USE WI 30 MIN OF WAKEUP [facility] Tobacco Use History This section includes a history of the smoking, or tobacco-related health factors, that were collected on or before the date of the Encounter. The data comes from the [place] facility where the Encounter took place. Date/Time Smoking Status/Tobacco Use Comment F acility Feb 21, 2024 10:15 AM VA-TOBACCO USE ADVICE [facility] Feb 21, 2024 10:15 AM VA-TOBACCO USE ENVIRONMENTAL HEALTH TECHNICIAN NO [facility] Feb 21, 2024 10:15 AM VA-TOBACCO USE MED NO [facility] Feb 21, 2024 10:15 AM VA-TOBACCO USE WI 30 MIN OF WAKEUP [facility] Feb 21, 2024 10:15 AM VA-TOBACCO USER EVERY DAY [facility] Jul 17, 2021 02:27 PM CURRENT SMOKER [facility] Jul 01, 2021 08:55 PM VA-VAAES TOBACCO U SE CURRENT NRT DECLINE [facility] Jul 01, 2021 02:41 PM CURRENT SMOKER [facility] Dec 08, 2020 08:45 [...] CTA ABDOMEN AND PE LVIS: GALINA LOYD [id number] -1945 M Exm Date: MAY 04, 2024@12:30 Req Phys: VIMAL FAM Pat Loc: [facility] VASCULAR 15 M3RH (Req'g Lo Img Loc: CT SCAN (OOS) Service: Unknown [facility] [address] (Case [id number] COMPLETE) CTA ABDOMEN AND PELVIS (CT Detailed) CPT:44762 Contrast Media : Non-ionic Iodinated Reason for [...] 05, 2024 Date Verified: MAY 05, 2024 Pigment Weigher E-Sig:/ES/NÉSTOR PASCUAL Report: CTA ABDOMEN AND PELVIS [...] REQUIRED Primary Interpreting Staff: NÉSTOR PASCUAL, RADIOLOGIST (Pigment Weigher) /NÉSTOR CONNER [facility] Encounter Notes: All associated encounter notes This section contains the clinical notes associated to the Encounter. Date/Time Encounter Note(s) Provider Source Apr 17, 2024 12:00 PM NONVA NOTE: LOCAL TITLE: COMMUNITY CARE-REQUEST FOR SERVICE NOTE STANDARD TITLE: NONVA NOTE DATE OF NOTE: APR 17, 2024@12:00 ENTRY DATE: APR 20, 2024@11:31:22 AUTHOR: ZOË ANDERSON EXP COSIGNER: URGENCY: STATUS: COMPLETED [facility] - Scanned Document Date of RFS: 04/17/2024 Note Title: COMMUNITY CARE-REQUEST FOR SERVICE NOTE Origin: NON-[place] [facility] DIAGNOSIS: CLOSED FEMORAL NECK ,fx LEFT HIP Specialty: ORTHOPEDICS SCHEDULED FOR FU ON 04/21/2024. SD Available in [facility]. Request review and placement for cc Orthopedics SCANNED DOCUMENT SIGNATURE NOT REQUIRED Electronically Filed: 04/20/2024 by: ZOË ANDERSON Registered Nurse Receipt Acknowledged By: 04/20/2024 12:20 /vivian/ KYRA VELASQUEZ M.D INTERNAL MEDICINE, [facility] ZOË ANDERSON [facility]
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
--- OUTSIDE RECORDS SUMMARY | 2024-05-24 19:24 | XMS_ITS ---
Author Name [facility] [place] Address [address] [place] [address] Care Team Providers Care Air Compressor Mechanic Name Role Phone KYRA GUTIERREZ Primary Care [...] Patient's Relationship to Policy Ervin [facility] (WNR) MEDICARE ADVANTAGE [facility](W NR) * Aug 23, 2023 [id number] ANNALISA EDUARDO ITE PATIENT [facility] M[facility] (WNR) MEDICARE ADVANTAGE [facility] (WNR) Aug 23, 2020 [id number] [phone] ANNALISA EDUARDO ITE PATIENT [facility] (WNR) MEDICARE ADVANTAGE [facility](W NR) Aug 23, 2012 [id number] ANNALISA EDUARDO ITE PATIENT Selected Encounter This section includes the information on record at [place] for the Encounter. Date/Time Encounter Type Encounter Description Reason Pro vider Source Apr 26, 2024 10:22 AM Outpatient Encounter PRIMARY CARE/MEDICINE IHE Encounter Template Text not used by [place] Plan of Treatment: Future Appointments (+ 6 months) and Future Tests (+/- 45 days) The Plan of Treatment section includes future care activities for the patient from [facility] [place] [facility]. This section includes future appointments and future orders which are active, pending or scheduled. Future Appointments This section includes appointments that were scheduled to occur 6 months from the date of the Encounter, up to a maximum of 20 appointments. The data comes from all [facility]. Appointment Date/Time Appointment Type Appointme nt Facility Name May 03, 2024 02:30 PM [place]ORY [place] [facility] May 04, 2024 10:30 AM [place]IC[place] [facility] May 04, 2024 11:00 AM AMB[place] - [place] [facility] May 04, 2024 12:30 PM AM[place]ORY - NONE [place] [facility] May 04, 2024 01:00 PM AM[place]ORY - [place] [facility] May 08, 2024 02:30 PM AMBULATORY - MEDICINE [facility] May 08, 2024 02:31 PM AM[place]ATORY - NONE [place] [facility] May 16, 2024 10:00 AM AMBULATORY - SURGERY [facility] May 16, 2024 10:01 AM [place] [facility] May 19, 2024 08:00 AM AM[place]ATORY - [place]ONE [place] [facility] May 26, 2024 10:00 AM AM[place]ULATORY - NONE [place] [facility] Jun 15, 2024 09:00 AM AM[place]ULATORY - NONE [place] [facility] Aug 29, 2024 10:30 AM AM[place]ULATORY - [place]ONE [place] [facility] Aug 29, 2024 11:15 AM [place] [facility] Active, Pending, and Scheduled Orders This section includes a listing of several types of active, pending, and scheduled orders, including clinic medications orders, diagnostic test orders, procedure orders and consult orders; where the start date of the order is 45 days before the date of the Encounter or 45 days after the date of theEncounter. The data comes from all [facility]. Test Date/Time Test Type Test Details Facility Name Mar 17, 2024 11:23 AM Consult Order COMMUNITY CARE-ACUTE REHAB Cons Credit Control Administrator's [facility] Apr 06, 2024 04:04 PM Consult Order COMMUNITY CARE-ALLERGY Cons Credit Control Administrator's [facility] May 03, 2024 12:00 AM Laboratory - Chemi stry Order URORISK DIAGNOSTIC PROFILE(Q) 24H RENAL STONE KIT 24H URINE SP [facility] May 17, 2024 02:27 PM Consult Order CAREGIVER SUPPORT PROGRAM OUTPT Cons Credit Control Administrator's [facility] May 19, 2024 12:44 PM Consult Order COMMUNITY CARE-PALLIATIVE CARE Cons Credit Control Administrator's [facility] Lab Results: +/- [...] Range Comment May 04, 2024 10:32 AM [facility] UREA NITROGEN Specimen Type: PLASMA Comment: , Tests performed on Synchrony SN:[id number] (405) Ordering Provider: DAVID FAM Report Released Date/Time: Nov 15, 2023 11:30 AM Reporting Lab: [facility] [address] [facility] [address] Performing Lab: [facility] [address] [facility] [address] UREA NITROGEN 10 mg/dL 03-16May 04, 2024 10:32 AM [facility] CREATININE WITH eGFR PANEL Specimen Type: PLASMA Comment: , Tests performed on Synchrony [id number] ([id number]) Ordering Provider: DAVID FAM Report Released Date/Time: Nov 15, 2023 11:30 AM Reporting Lab: [facility] [address] [facility] [place] [address] Performing Lab: [facility] [address] [facility] [address] CREATININE 0.91 mg/dL 0.50-1.50 eGFR(CKD-EPI 2020) 86 Social History: Smoking Status (Most current) and Tobacco Use (All prior to encounter date) This section includes the most current, and the historical, smoking and tobacco- related health factors from the [place] facility where the Encounter took place. Current Smoking Status This section includes the most current smoking, or tobacco-related health factor, from the [place] facility where the Encounter took place. Date/Time Current Smoking Status Comment Nataly ity Feb 21, 2024 10:15 AM VA-TOBACCO USE WI 30 MIN OF WAKEUP [facility] Tobacco Use History This section includes a history of the smoking, or tobacco-related health factors, that were collected on or before the date of the Encounter. The data comes from the [place] facility where the Encounter took place. Date/Time Smoking Status/Tobacco Use Comment F acility Feb 21, 2024 10:15 AM VA-TOBACCO USE ADVICE [facility] Feb 21, 2024 10:15 AM VA-TOBACCO USE TRAFFIC LAW ATTORNEY NO [facility] Feb 21, 2024 10:15 AM VA-TOBACCO USE MED NO [facility] Feb 21, 2024 10:15 AM VA-TOBACCO USE [place] 30 MIN OF WAKEUP [facility] Feb 21, 2024 10:15 AM VA-TOBACCO USER EVERY DAY [facility] Jul 17, 2021 02:27 PM CURRENT SMOKER [facility] Jul 01, 2021 08:55 PM VA-VAAES TOBACCO U SE CURRENT NRT DECLINE [facility] Jul 01, 2021 02:41 PM CURRENT SMOKER [facility] Dec 08, 2020 [...] ALL of a patient's completed or amended [place] Advance and Rescinded Directives. The entries below indicate that a directive exists for the patient, but an actual copy is not included with this document. The data comes from all [place] facilities. Date Advance Directives Provider Source Nov [...] the Encounter. The data comes from all [place] treatment facilities. Date/Time Radiology Report Provider Source May 04, 2024 12:30 PM CTA ABDOMEN AND PE LVIS: GALINA EDUARDO [id number] -1945 M Exm Date: MAY 04, 2024@12:30 Req Phys: VIMAL FAM Loc: [facility] VASCULAR 15 M3RH (Req'g Lo Img Loc: CT SCAN (OOS) Service: Unknown [facility] [place] [address] (Case [id number] COMPLETE) CTA ABDOMEN AND PELVIS (CT Detailed) CPT:88120 Contrast Media : Non-ionic Iodinated Reason for [...] 05, 2024 Date Verified: MAY 05, 2024 Disposition Clerk E-Sig:/ES/NÉSTOR PASCUAL Report: CTA ABDOMEN AND PELVIS [...] REQUIRED Primary Interpreting Staff: NÉSTOR PASCUAL, RADIOLOGIST (Disposition Clerk) /NÉSTOR [facility] Encounter Notes: All associated encounter notes This section contains the clinical notes associated to the Encounter. Date/Time Encounter Note(s) Provider Source Apr 26, 2024 10:22 AM NONVA NOTE: LOCAL TITLE: NonVA Note STANDARD TITLE: NONVA NOTE DATE OF NOTE: APR 26, 2024@10:22 ENTRY DATE: APR 26, 2024@10:22:58 AUTHOR: JENIFER SHANE EXP COSIGNER: URGENCY: STATUS: [facility] Galina Eduardo Jr 1945 Kyra Gutierrez [phone] Please fax a copy of the above patient's Advance Directive, Living Will, DPOA, and COLST/DNR Form to [phone]. If they do not have one in their file, please fax me back and indicate below that you having nothing on file ft patient. Thank you, This is faxed to number provided /es/ JENIFER SHANE LPN Signed: 04/26/2024 10:24 JENIFER SHANE [facility]
--- OUTSIDE RECORDS SUMMARY | 2024-05-24 19:24 | XMS_ITS | Encounter Summary ---
Author Name [facility] [place] Organization [place] Address [address] [place] [address] Care Team Providers Care Lead Ruby On Rails Developer Name Role Phone KYRA VELASQUEZ Primary Care [...] Ervin's Name Patient's Relationship to Policy Ervin [facility] (WNR) MEDICARE ADVANTAGE [facility](W NR) * Aug 23, 2023 [id number] ANNALISA LOYD ITE PATIENT [facility] (WNR) MEDICARE ADVANTAGE [facility] (WNR) Aug 23, 2020 [id number] [phone] ANNALISA LOYD ITE PATIENT [facility] (WNR) MEDICARE ADVANTAGE [facility](W NR) Aug 23, 2012 [id number] [phone] ANNALISA LOYD ITE PATIENT Selected Encounter This section includes the information on record at [place] for the Encounter. Date/Time Encounter Type Encounter Description Reason Provider Source Apr 06, 2024 01:00 PM OFFICE O/P EST MOD 30 MIN PRIMARY CARE/MEDICINE ICD-10-CM L89.894 Pressure ulcer of other site, stage 4 KYRA VELASQUEZ [facility] Encounter Template Text not used by [place] Assessments - Encounter Diagnoses This section includes the primary and secondary diagnoses documented for the Encounter. Date/Time Primary/Secondary Diagnosis Diagnosis Name Provider Source Apr 06, 2024 02:22 PM PRIMARY Pressure ulcer of other site, stage 4 KYRA VELASQUEZ [facility] Plan of Treatment: Future Appointments (+ 6 months) and Future Tests (+/- 45 days) The Plan of Treatment section includes future care activities for the patient from all [place] treatmentfacilities. This section includes future appointments and future orders which are active, pending or scheduled. Future Appointments This section includes appointments that were scheduled to occur 6 months from the date of the Encounter, up to a maximum of 20 appointments. The data comes from all [place] treatment facilities. Appointment Date/Time Appointment Type Appointme nt Facility Name Apr 10, 2024 01:30 PM AMBULATORY - MEDICINE [facility] Apr 10, 2024 01:31 PM [facility]ATORY - NONE [facility] Apr 11, 2024 10:00 AM AMBULATORY - SURGERY [facility] Apr 11, 2024 10:01 AM AMBULATORY - SURGERY [facility] Apr 21, 2024 10:30 AM [facility]ULATORY - NONE [facility] May 03, 2024 02:30 PM AMBULATORY - SURGERY [facility] May 04, 2024 10:30 AM [facility] May 04, 2024 11:00 AM AMBULATORY - SURGERY [facility] May 04, 2024 12:30 PM AM[facility]ULATORY - NONE [facility] May 04, 2024 01:00 PM AMBULATORY - SURGERY [facility] May 08, 2024 02:30 PM AMBULATORY - MEDICINE [facility] May 08, 2024 02:31 PM [facility]ULATORY - NONE [facility] May 16, 2024 10:00 AM AMBULATORY - SURGERY [facility] May 16, 2024 10:01 AM AMBULATORY - SURGERY [facility] May 19, 2024 08:00 AM AM[facility]ULATORY - NONE [facility] May 26, 2024 10:00 AM [facility]ORY - NONE [facility] Jun 15, 2024 09:00 AM AM[facility]ATORY - NONE [facility] Aug 29, 2024 10:30 AM [facility]ORY [facility] NONE [facility] Aug 29, 2024 11:15 AM AMBULATORY - SURGERY [facility] Active, Pending, and Scheduled Orders This [...] AM Consult Order COMMUNITY CARE-ACUTE REHAB Cons Chief School Finance Officer's [facility] Apr 06, 2024 04:04 PM Consult Order COMMUNITY CARE-ALLERGY [facility] Chief School Finance Officer's [facility] May 03, 2024 12:00 AM Laboratory - Chemi stry Order URORISK DIAGNOSTIC PROFILE(Q) 24H RENAL STONE KIT 24H URINE SP [facility] May 17, 2024 02:27 PM Consult Order CAREGIVER SUPPORT PROGRAM OUTPT Cons Chief School Finance Officer's [facility] May 19, 2024 12:44 PM Consult Order COMMUNITY CARE-PALLIATIVE CARE [facility] Chief School Finance Officer's [facility] Lab Results: +/- [...] Comment: , Tests performed on [employer] [id number]) Ordering Provider: DAVID FAM Report Released Date/Time: Nov 15, 2023 11:30 AM Reporting Lab: [facility] [address] [place] [address] Performing Lab: [facility] [address] [facility] [address] UREA NITROGEN 10 mg/dL 03-16May 04, 2024 10:32 AM [facility] CREATININE WITH eGFR PANEL Specimen Type: PLASMA Comment: , Tests performed on [employer] SN:[id number] ([id number]) Ordering Provider: DAVID FAM Report Released Date/Time: Nov 15, 2023 11:30 AM Reporting Lab: [facility] [address] [facility] [address] Performing Lab: [facility] [address] [facility] [address] CREATININE 0.91 mg/dL 0.50-1.50 eGFR(CKD-EPI 2020) 86 Advance Directives: All historical and current Section Date Range: From patient's date of to the date document was created. This section includes ALL of a patient's completed or amended [place] Advance and Rescinded Directives. The entries below [...] CTA ABDOMEN AND PE LVIS: GALINA LOYD [id number] -1945 M Exm Date: MAY 04, 2024@12:30 Req Phys: VIMAL FAM Pat Loc: [facility] VASCULAR 15 M3RH (Req'g Lo Img Loc: CT SCAN (OOS) Service: [place] [address] (Case [id number] COMPLETE) CTA ABDOMEN AND PELVIS (CT Detailed) CPT:50314 Contrast Media : Non-ionic Iodinated Reason for [...] 05, 2024 Date Verified: MAY 05, 2024 Low Raw Sugar Cutter E-Sig:/ES/NÉSTOR PASCUAL Report: CTA ABDOMEN AND PELVIS [...] REQUIRED Primary Interpreting Staff: NÉSTOR PASCUAL, RADIOLOGIST (Low Raw Sugar Cutter) /NÉSTOR CONNER [facility] Encounter Notes: All associated encounter notes This section contains the clinical notes associated to the Encounter. Date/Time Encounter Note(s) Provider Source Apr 06, 2024 12:00 PM ADMINISTRATIVE NOT E: LOCAL TITLE: VISN 1 [facility] POINTER NOTE STANDARD TITLE: ADMINISTRATIVE NOTE DATE OF NOTE: APR 06, 2024@12:00 ENTRY DATE: APR 06, 2024@12:00:36 AUTHOR: KYRA VELASQUEZ EXP COSIGNER: URGENCY: STATUS: COMPLETED Clinical services were provided by this health technical writer on Mar from the [facility] to the [facility] of care: [facility] Type of Service Delivered: pc Modality of Care: Clinical Video Telehealth (CVT) Length of Service: 60m Provisional Diagnosis: pressure sore Please see Happy Cosas Viewer (JLV) for progress note, clinical reminders, patient orders, consults, and any associated clinical data /vivian/ KYRA VELASQUEZ M.D INTERNAL MEDICINE, [facility] Signed: 04/06/2024 14:22 KYRA VELASQUEZ [facility]
--- OUTSIDE RECORDS SUMMARY | 2024-05-24 19:24 | XMS_ITS | Encounter Summary ---
Author Name Department [place] Organization [place] Address [address] [place] [address] Care Team Providers Care Nuclear Medicine Supervisor Name Role Phone RON KYRA Primary [...] SYSTEM [facility] (WNR) MEDICARE ADVANTAGE [facility](W NR) * Aug 23, 2023 [id number] [phone] ANNALISA LOYD ITE PATIENT [facility] (WNR) MEDICARE ADVANTAGE [facility] (WNR) Aug 23, 2020 [id number] [phone] ANNALISA LOYD ITE PATIENT [facility] (WNR) MEDICARE ADVANTAGE [facility](W NR) Aug 23, 2012 [id number] ANNALISA LOYD ITE PATIENT Selected Encounter This section includes the information on record at [place] for the Encounter. Date/Time Encounter Type Encounter Description Reason Pro vider Source Apr 21, 2024 12:00 PM Outpatient Encounter COMMUNITY CARE CONSULT IHE Encounter Template Text not used by [place] Plan of Treatment: Future Appointments (+ 6 months) and Future Tests (+/- 45 days) The Plan of Treatment section includes future care activities for the patient from all [place] [facility]. This section includes future appointments and future orders which are active, pending or scheduled. Future Appointments This section includes appointments that were scheduled to occur 6 months from the date of the Encounter, up to a maximum of 20 appointments. The data comes from all [facility] facilities. Appointment Date/Time Appointment Type Appointme nt Facility Name May 03, 2024 02:30 PM [facility] [place] [facility] May 04, 2024 10:30 AM AMBUL[facility]ORY - [place]IC[place] [facility] May 04, 2024 11:00 AM AMBULATORY - [place] [facility] May 04, 2024 12:30 PM AMBULATORY - NONE [facility] [place] [facility] May 04, 2024 01:00 PM AMBUL[facility]ORY - [place] [facility] May 08, 2024 02:30 PM AMBULATORY - MEDICINE [facility] May 08, 2024 02:31 PM AMBULATORY - NONE [place] [facility] May 16, 2024 10:00 AM AMBULATORY - SURGERY [facility] May 16, 2024 10:01 AM AMBUL[facility] - [place] [facility] May 19, 2024 08:00 AM AMBULATORY - NONE [facility] [facility] May 26, 2024 10:00 AM AMBULATORY - NONE [facility] [facility] [facility] Jun 15, 2024 09:00 AM AMBULATORY - NONE [facility] [facility] Aug 29, 2024 10:30 AM AMBULATORY - NONE [facility] [facility] Aug 29, 2024 11:15 AM AMB[place]ATORY - [place] [facility] Active, Pending, and Scheduled Orders This section includes a listing of several types of active, pending, and scheduled orders, including clinic medications orders, diagnostic test orders, procedure orders and consult orders; where the start date of the order is 45 days before the date of the Encounter or 45 days after the date of theEncounter. The data comes from all [facility]. Test Date/Time Test Type Test Details Facility Name Mar 17, 2024 11:23 AM Consult Order COMMUNITY CARE-ACUTE REHAB Cons Customs Entry Clerk's Choice [facility] Apr 06, 2024 04:04 PM Consult Order COMMUNITY CARE-ALLERGY Cons Customs Entry Clerk's [facility] May 03, 2024 12:00 AM Laboratory - Chemi stry Order URORISK DIAGNOSTIC PROFILE(Q) 24H RENAL STONE KIT 24H URINE SP [facility] May 17, 2024 02:27 PM Consult Order CAREGIVER SUPPORT PROGRAM OUTPT Cons Customs Entry [facility] May 19, 2024 12:44 PM Consult Order COMMUNITY CARE-PALLIATIVE CARE Cons Customs Entry Clerk's [facility] Lab Results: +/- [...] Type: PLASMA Comment: , Tests performed on [employer] SN:[id number] ([id number]) Ordering Provider: DAVID FAM Report Released Date/Time: Nov 15, 2023 11:30 AM Reporting [facility] [address] [facility] [address] Performing Lab: [facility] [address] [facility] [address] UREA NITROGEN 10 mg/dL -May 04, 2024 10:32 AM [facility] CREATININE WITH eGFR PANEL Specimen Type: PLASMA Comment: , Tests performed on [employer] SN:[id number] ([id number]) Ordering Provider: DAVID FAM Report Released Date/Time: Nov 15, 2023 11:30 AM Reporting Lab: [facility] [address] [facility] [address] Performing Lab: [facility] [address] [facility] [address] CREATININE 0.91 mg/dL 0.50-1.50 eGFR(CKD-EPI 2020) 86 [...] Feb 21, 2024 10:15 AM VA-TOBACCO USE SEA AIR LAND OFFICER NO [facility] Feb 21, [...] Jul 01, 2021 02:41 PM CURRENT SMOKER [facility] Jannette [facility] Dec 08, 2020 [...] CTA ABDOMEN AND PE LVIS: GALINA LOYD [id number] -1945 M Exm Date: MAY 04, 2024@12:30 Req Phys: VIMAL FAM Pat Loc: [facility] VASCULAR 15 M3RH (Req'g Lo Img Loc: CT SCAN (OOS) Service: [place] [address] (Case [id number] COMPLETE) CTA ABDOMEN AND PELVIS (CT Detailed) CPT:62584 Contrast Media : Non-ionic Iodinated Reason for [...] 05, 2024 Date Verified: MAY 05, 2024 Trucksmith E-Sig:/ES/NÉSTOR PASCUAL Report: CTA ABDOMEN AND PELVIS [...] REQUIRED Primary Interpreting Staff: NÉSTOR PASCUAL, RADIOLOGIST (Trucksmith) /NÉSTOR CONNER T[place] [facility] Encounter Notes: All associated encounter notes This section contains the clinical notes associated to the Encounter. Date/Time Encounter Note(s) Provider Source Apr 21, 2024 12:00 PM NONVA CONSULT: LOCAL TITLE: COMMUNITY CARE CONSULT RESULT NOTE STANDARD TITLE: NONVA CONSULT DATE OF NOTE: APR 21, 2024@12:00 ENTRY DATE: APR 29, 2024@15:19:22 AUTHOR: NICOLE CASTELLON COSIGNER: URGENCY: STATUS: COMPLETED VistA Imaging - Scanned Document Consult / Referral: Apr 20 (s) COMMUNITY CARE-ORTHOPEDICS GENERAL Cons Consult # [id number] Date of Service (Procedure/Event): 04/21/2024 Note Title: COMMUNITY CARE CONSULT RESULT NOTE Origin: NON-DC Type: PROGRESS NOTE Specialty: ORTHOPEDICS Procedure: VISIT-CLOSED LT HIP FRACTURE [facility] SCANNED DOCUMENT SIGNATURE NOT REQUIRED Electronically Filed: 04/29/2024 by: NCIOLE CASTELLON [facility]
--- OUTSIDE RECORDS SUMMARY | 2024-05-24 19:25 | XMS_ITS | Encounter Summary ---
Author Name Department [place] Organization [place] Address [address] [place] [address] Care Team Providers Care Kaiako Kohanga Reo Name Role Phone RON KYRA Primary Care [...] Ervin's Name Patient's Relationship to Policy Ervin [facility] (WNR) MEDICARE ADVANTAGE [facility](W NR) * Aug 23, 2023 [id number] ANNALISA EDUARDO ITE PATIENT [facility] (WNR) MEDICARE ADVANTAGE [facility] (WNR) Aug 23, 2020 [id number] [phone] ANNALISA EDUARDO ITE PATIENT [facility] (WNR) MEDICARE ADVANTAGE [facility](W NR) Aug 23, 2012 [id number] [phone] ANNALISA EDUARDO ITE PATIENT Selected Encounter This section includes the information on record at [place] for the Encounter. Date/Time Encounter Type Encounter Description Reason Provider Source May 17, 2024 12:41 PM Outpatient Encounter TELEPHONE CASE MANAGEMENT CRISTINE COCHRAN I[facility]Jannette Encounter Template Text not used by [place] Plan of Treatment: Future Appointments (+ 6 months) and Future Tests (+/- 45 days) The Plan of Treatment section includes future care activities for the patient from all [place] [facility]. This section includes future appointments and future orders which are active, pending or scheduled. Future Appointments This section includes appointments that were scheduled to occur 6 months from the date of the Encounter, up to a maximum of 20 appointments. The data comes from all [place] treatment facilities. Appointment Date/Time Appointment Type Appointme nt Facility Name May 19, 2024 08:00 AM AM[facility]ULATORY - NONE [facility] May 26, 2024 10:00 AM AMBULATORY - NONE [facility] Jun 15, 2024 09:00 AM AMBULATORY - NONE [facility] [place] [facility] Aug 29, 2024 10:30 AM AMBULATORY - NONE [facility] [place] [facility] Aug 29, 2024 11:15 AM AMBULATORY - SURGERY [facility] Active, Pending, and Scheduled Orders This section includes a listing of several types of active, pending, and scheduled orders, including clinic medications orders, diagnostic test orders, procedure orders and consult orders; where the start date of the order is 45 days before the date of the Encounter or 45 days after the date of theEncounter. The data comes from all [facility]. Test Date/Time Test Type Test Details Facility Name Apr 06, 2024 04:04 PM Consult Order COMMUNITY CARE-ALLERGY Cons Supervising Chef's [facility] May 03, 2024 12:00 AM Laboratory - Chemi stry Order URORISK DIAGNOSTIC PROFILE(Q) 24H RENAL STONE KIT 24H URINE SP [facility] May 17, 2024 02:27 PM Consult Order CAREGIVER SUPPORT PROGRAM OUTPT Cons Supervising Chef's [facility] May 19, 2024 12:44 PM Consult Order COMMUNITY CARE-PALLIATIVE CARE Cons Supervising Chef's [facility] Lab Results: +/- 30 [...] Range Comment May 04, 2024 10:32 AM [facility] UREA NITROGEN Specimen Type: PLASMA Comment: , Tests performed on [employer] SN:[id number] ([id number]) Ordering Provider: DAVID FAM Report Released Date/Time: Nov 15, 2023 11:30 AM Reporting Lab[facility] [address] [facility] [address] Performing Lab: [facility] [address] [facility] [address] UREA NITROGEN 10 mg/dL -May 04, 2024 10:32 AM [facility] CREATININE WITH eGFR PANEL Specimen Type: PLASMA Comment: , Tests performed on [employer] SN:[id number] ([id number]) Ordering Provider: DAVID FAM Report Released Date/Time: Nov 15, 2023 11:30 AM Reporting Lab: [facility] [address] [facility] [address] Performing Lab: [facility] [address] [facility] [address] CREATININE 0.91 mg/dL 0.50-1.50 eGFR(CKD-EPI 2020) 86 [...] Feb 21, 2024 10:15 AM VA-TOBACCO USE CLINICAL WRITER NO [facility] Feb 21, 2024 10:15 AM VA-TOBACCO USE MED NO [facility] Feb 21, 2024 10:15 AM VA-TOBACCO USE WI 30 MIN OF WAKEUP [facility] Feb 21, 2024 10:15 AM VA-TOBACCO USER EVERY DAY [facility] Jul 17, 2021 02:27 PM CURRENT SMOKER REINIER Bhatia [facility] Jul 01, 2021 08:55 [...] CTA ABDOMEN AND PE LVIS: GALINA EDUARDO [id number] -1945 M Exm Date: MAY 04, 2024@12:30 Req Phys: VIMAL FAM Pat Loc: [facility] VASCULAR 15 M3RH (Req'g Lo Img Loc: CT SCAN (OOS) [facility] [place] [address] (Case [id number] COMPLETE) CTA ABDOMEN AND PELVIS (CT Detailed) CPT:00781 Contrast Media : Non-ionic Iodinated Reason for [...] 05, 2024 Date Verified: MAY 05, 2024 Sociocultural Anthropology Professor E-Sig:/ES/NÉSTOR PASCUAL Report: CTA ABDOMEN AND PELVIS [...] REQUIRED Primary Interpreting Staff: NÉSTOR PASCUAL, RADIOLOGIST (Sociocultural Anthropology Professor) /NÉSTOR CONNER [facility] Encounter Notes: All associated encounter notes This section contains the clinical notes associated to the Encounter. Date/Time Encounter Note(s) Provider Source May 17, 2024 12:42 PM GERIATRIC MEDICINE NOTE: LOCAL TITLE: PERSONAL CARE SERVICES CASE MIX TOOL STANDARD TITLE: GERIATRIC MEDICINE NOTE DATE OF NOTE: MAY 17, 2024@12:42:41 ENTRY DATE: MAY 17, 2024@12:42:41 AUTHOR: LANEY COCHRAN EXP COSIGNER: URGENCY: STATUS: COMPLETED HCBS Case Mix & Budget Tool (CASE MIX) Date Given: 05/17/2024 Clinician: Laney Cochran Location: [facility] Mgt Phone [place]: Galina Eduardo Jr SSN: [id number] : [birth year] ([birth year]) Gender: Male Type of Evaluation: Initial Anticipated Start Date: 05/17/2024 Anticipated Length of Service: 12 months Case Mix Level: E ADL Category: Medium Questions and Answers: Q1. DRESSING *3 Cannot dress yourself and somebody dresses you. Q2. GROOMING 1 Need and get supervision or reminding or grooming activities. Q3. BATHING *4 Need and get help washing and drying your body. Q4. EATING *2 Need and get help in cutting food, buttering bread or arranging food. Q5. BED MOBILITY 1 Need and get help sometimes to sit up. Q6. TRANSFERRING *2 Need one other person to help you. Q7. WALKING *2 Need and get help from one person to help you walk. Q8. BEHAVIOR *2 Regular staff intervention / disorientation, hallucinates, wanders / resistive but responds. Q9. COMMUNICATION 0 Understood. Q10. TOILETING *4 Have accidents more than once a week. Q11. MDS HC 2.0/CPS Cognitive Skill for Daily Decision Making 0 Independent - decisions consistent/reasonable. Q12. MDS 2.0/CPS: Short Term Memory (recall of what was learned or known) 0 Short-term memory okay- seems/appears to recall after 5 minutes Q13. SPECIAL TREATMENTS 0 No [place] Q14. CLINICAL MONITORING 1 1-2 shifts a day Q15. SPECIAL NURSING No Q16. NEUROMUSCULAR DIAGNOSIS Yes COMMENTS 78-year-old male [place] s/p CVA, who needs assistance in the home to remain safely in the home. SOURCES 1. Person, 2. Informant, 3. Medical Record /es/ LANEY COCHRAN Signed: 05/17/2024 12:43 LANEY COCHRAN [facility]
--- OUTSIDE RECORDS SUMMARY | 2024-05-24 19:25 | XMS_ITS | Encounter Summary ---
Author Name [place] Address [address] [place] [address] Care Team Providers Care Genetics Teacher Name Role Phone RON KYRA Primary [...] Ervin's Name Patient's Relationship to Policy Ervin [facility] (WNR) MEDICARE ADVANTAGE [facility](W NR) * Aug 23, 2023 [id number] ANNALISA LOYD ITE PATIENT [facility] M[facility] (WNR) MEDICARE ADVANTAGE MCR (WNR) Aug 23, 2020 [id number] [phone] ANNALISA LOYD ITE PATIENT [facility] M[facility] (WNR) MEDICARE ADVANTAGE [facility](W NR) Aug 23, 2012 [id number] ANNALISA LOYD ITE PATIENT Selected Encounter This section includes the information on record at [place] for the Encounter. Date/Time Encounter Type Encounter Description Reason Pro vider Source May 04, 2024 12:06 PM Outpatient Encounter EVENT (HISTORICAL) IHE Encounter Template Text not used by [place] Plan of Treatment: Future Appointments (+ 6 months) and Future Tests (+/- 45 days) The Plan of Treatment section includes future care activities for the patient from all [place] [facility]. This section includes future appointments and future orders which are active, pending or scheduled. Future Appointments This section includes appointments that were scheduled to occur 6 months from the date of the Encounter, up to a maximum of 20 appointments. The data comes from all [facility] facilities. Appointment Date/Time Appointment Type Appointme nt Facility Name May 08, 2024 02:30 PM AMBULATORY - MEDICINE [facility] May 08, 2024 02:31 PM AMBULATORY - NONE [place] JO[place]LE [facility] May 16, 2024 10:00 AM AMBULATORY - SURGERY [facility] May 16, 2024 10:01 AM AMBULATORY - SURGERY [facility] May 19, 2024 08:00 AM AMBULATORY - NONE [place] T [facility] May 26, 2024 10:00 AM AMBULATORY - NONE [place] [facility] Jun 15, 2024 09:00 AM AMBULATORY - NONE [place] T [facility] Aug 29, 2024 10:30 AM AMBULATORY - NONE [place] T [facility] Aug 29, 2024 11:15 AM AMBULATORY - SURGERY [facility] Active, [...] from all [facility]. Test Date/Time Test Type Test Details Facility Name Apr 06, 2024 04:04 PM Consult Order COMMUNITY CARE-ALLERGY Cons Visual Training Aide's Choice [facility] May 03, 2024 12:00 AM Laboratory - Chemi stry Order URORISK DIAGNOSTIC PROFILE(Q) 24H RENAL STONE KIT 24H URINE SP [facility] May 17, 2024 02:27 PM Consult Order CAREGIVER SUPPORT PROGRAM OUTPT Cons Visual Training Aide's Choice [facility] May 19, 2024 12:44 PM Consult Order COMMUNITY CARE-PALLIATIVE CARE Cons Visual Training Aide's Choice [facility] Lab Results: +/- 30 days of [...] Range Comment May 04, 2024 10:32 AM [facility] UREA NITROGEN Specimen Type: PLASMA Comment: , Tests performed on [employer] SN:[id number] ([id number]) Ordering Provider: DAVID FAM Report Released Date/Time: Nov 15, 2023 11:30 AM Reporting Lab: [facility] [address] [facility] [address] Performing Lab: [facility] [address] [facility] [address] UREA NITROGEN 10 mg/dL -May 04, 2024 10:32 AM [facility] CREATININE WITH eGFR PANEL Specimen Type: PLASMA Comment: , Tests performed on [employer] SN:[id number] (405) Ordering Provider: DAVID FAM Report Released Date/Time: Nov 15, 2023 11:30 AM Reporting Lab: [facility] [address] [facility] [address] Performing Lab: [facility] [address] [facility] [address] CREATININE 0.91 mg/dL 0.50-1.50 eGFR(CKD-EPI 2020) 86 Vital Signs: All taken on the encounter date This section contains inpatient and outpatient Vital Signs collected on the date of the Encounter. Date/Time Temperature Pulse Blood Pressure Respiratory Rate SP02 Pain Height Weight Body Mass Index Source May 04, 2024 01:44 PM 97 78 130/72 17 98 0 [facility] Social History: Smoking Status (Most current) and Tobacco Use (All prior to encounter date) This section includes the most current, and the historical, smoking and tobacco- related health factors from the [place] facility where the Encounter took place. Current Smoking Status This section includes the most current smoking, or tobacco-related health factor, from the [place] facility where the Encounter took place. Date/Time Current Smoking Status Comment Nataly strangey Feb 21, 2024 10:15 AM VA-TOBACCO USE > 1 5 LESS THAN 30 YEARS [facility] Tobacco Use History This section includes a history of the smoking, or tobacco-related health factors, that were collected on or before the date of the Encounter. The data comes from the [place] facility where the Encounter took place. Date/Time Smoking Status/Tobacco Use Comment F acility Feb 21, 2024 10:15 AM VA-TOBACCO USE ADVICE [facility] Feb 21, 2024 10:15 AM VA-TOBACCO USE SLIME PLANT OPERATOR HELPER NO [facility] Feb 21, 2024 10:15 AM VA-TOBACCO USE MED NO [facility] Feb 21, 2024 10:15 AM VA-TOBACCO USE WI 30 MIN OF WAKEUP [facility] Feb 21, 2024 10:15 AM VA-TOBACCO USER EVERY DAY [facility] Jul 17, 2021 02:27 PM CURRENT SMOKER [facility] Jul 01, 2021 08:55 PM VA-VAAES TOBACCO U SE CURRENT NRT DECLINE [facility] Jul 01, 2021 02:41 PM CURRENT SMOKER [facility] Dec 08, 2020 [...] ALL of a patient's completed or amended [place] Advance and Rescinded Directives. The entries below indicate that a directive exists for the patient, but an actual copy is not included with this document. The data comes from all [place] facilities. Date Advance Directives Provider Source Nov 18, 2017 ADVANCE DIRECTIVE RADHA FERNANDEZ [facility] Jul 08, 2017 ADVANCE DIRECTIVE DISCUSSION PURNIMA ROJAS [facility] Radiology Reports: +/- 30 days of [...] the Encounter. The data comes from all [place] treatment facilities. Date/Time Radiology Report Provider Source May 04, 2024 12:30 PM CTA ABDOMEN AND PE LVIS: GALINA LOYD [id number] -1945 M Exm Date: MAY 04, 2024@12:30 Req Phys: VIMAL FAM Loc: [facility] VASCULAR 15 M3RH (Req'g Lo Img Loc: CT SCAN (OOS) Service: [place] [facility] [place] [address] (Case [id number] COMPLETE) CTA ABDOMEN AND PELVIS (CT Detailed) CPT:96117 Contrast Media : Non-ionic Iodinated Reason for [...] 05, 2024 Date Verified: MAY 05, 2024 Employment Legal Assistant E-Sig:/ES/NÉSTOR PASCUAL Report: CTA ABDOMEN AND PELVIS , 05/04/2024 TECHNIQUE: Helical CT images acquired through the abdomen and pelvis after IV contrast administered in the arterial phase INDICATION: F/U AAA, 5.1cm by duplex COMPARISON: CT A/P 3/1/24 Findings: There is an infrarenal abdominal aortic [...] REQUIRED Primary Interpreting Staff: NÉSTOR PASCUAL, RADIOLOGIST (Employment Legal Assistant) /NÉSTOR CONNER [facility]
--- OUTSIDE RECORDS SUMMARY | 2024-05-24 19:25 | XMS_ITS ---
Author Name [place] Address [address] [place] [address] Care Team Providers Care Foot Gatherer Name Role Phone KYRA VELASQUEZ Primary Care [...] Patient's Relationship to Policy Ervin [facility] (WNR) MEDICARE ADVANTAGE [facility](W NR) * Aug 23, 2023 [id number] [phone] ANNALISA LOYD ITE PATIENT [facility] (WNR) MEDICARE ADVANTAGE [facility] (WNR) Aug 23, 2020 [id number] [phone] ANNALISA LOYD ITE PATIENT [facility] (WNR) MEDICARE ADVANTAGE [facility](W NR) Aug 23, 2012 [id number] ANNALISA LOYD ITE PATIENT Selected Encounter This section includes the information on record at [place] for the Encounter. Date/Time Encounter Type Encounter Description Reason Pro vider Source May 12, 2024 09:50 AM Outpatient Encounter ADMIN PAT ACTIVTIES (MASNONCT) IHE Encounter Template Text not used by [place] Plan of Treatment: Future Appointments (+ 6 [...] appointments. The data comes from all [facility] facilities. Appointment Date/Time Appointment Type Appointme nt Facility Name May 16, 2024 10:00 AM AMBULATORY - SURGERY [facility] Jeimy [facility] May 16, 2024 10:01 AM AMBULATORY - SURGERY [facility] May 19, 2024 08:00 AM AMBULATORY - NONE [place] [facility] May 26, 2024 10:00 AM AMBULATORY - NONE [place] [facility] Jun 15, 2024 09:00 AM AMBULATORY - NONE [place] [facility] Aug 29, 2024 10:30 AM AMBULATORY - NONE [place] T [facility] Aug 29, 2024 11:15 AM AMBULATORY - SURGERY [facility] Active, Pending, and Scheduled Orders This section includes a listing of several types of active, pending, and scheduled orders, including clinic medications orders, diagnostic test orders, procedure orders and consult orders; where the start date of the order is 45 days before the date of the Encounter or 45 days after the date of theEncounter. The data comes from all [facility]. Test Date/Time Test Type Test Details Facility Name Apr 06, 2024 04:04 PM Consult Order COMMUNITY CARE-ALLERGY Cons Interventional Radiology Technologist's [facility] May 03, 2024 12:00 AM Laboratory - Chemi stry Order URORISK DIAGNOSTIC PROFILE(Q) 24H RENAL STONE KIT 24H URINE SP [facility] May 17, 2024 02:27 PM Consult Order CAREGIVER SUPPORT PROGRAM OUTPT Cons Interventional Radiology Technologist's [facility] May 19, 2024 12:44 PM Consult Order COMMUNITY CARE-PALLIATIVE CARE Cons Interventional Radiology Technologist's [facility] Lab Results: +/- 30 [...] Range Comment May 04, 2024 10:32 AM [facility] UREA NITROGEN Specimen Type: PLASMA Comment: , Tests performed on [employer] SN:[id number] (405) Ordering Provider: DAVID FAM Report Released Date/Time: Nov 15, 2023 11:30 AM Reporting [facility] [address] [facility] [address] Performing Lab: [facility] [address] [facility] [address] UREA NITROGEN 10 mg/dL 03-16May 04, 2024 10:32 AM [facility] CREATININE WITH eGFR PANEL Specimen Type: PLASMA Comment: , Tests performed on [employer] SN:[id number] (405) Ordering Provider: DAVID FAM Report Released Date/Time: Nov 15, 2023 11:30 AM Reporting Lab: [facility] [address] [facility] [place] [address] Performing Lab: [facility] [address] [facility] [address] CREATININE 0.91 mg/dL 0.50-1.50 eGFR(CKD-EPI 2020) 86 [...] VA-TOBACCO USE WI 30 MIN OF WAKEUP [facility] Tobacco Use History This section includes a history of the smoking, or tobacco-related health factors, that were collected on or before the date of the Encounter. The data comes from the [place] facility where the Encounter took place. Date/Time Smoking Status/Tobacco Use Comment F acility Feb 21, 2024 10:15 AM VA-TOBACCO USE ADVICE [facility] Feb 21, 2024 10:15 AM VA-TOBACCO USE ARRANGING FUNERAL DIRECTOR NO [facility] Feb 21, 2024 10:15 AM VA-TOBACCO USE MED NO [facility] Feb 21, 2024 10:15 AM VA-TOBACCO USE WI 30 MIN OF WAKEUP [facility] Feb 21, 2024 10:15 AM VA-TOBACCO USER EVERY DAY [facility] Jul 17, 2021 02:27 PM CURRENT SMOKER REINIER Bhatia [facility] Jul 01, 2021 08:55 PM VA-VAAES TOBACCO U SE CURRENT NRT DECLINE [facility] Jul 01, 2021 02:41 PM CURRENT SMOKER REINIER Bhatia [facility] Dec 08, [...] CTA ABDOMEN AND PE LVIS: GALINA LOYD [id number] -1945 M Exm Date: MAY 04, 2024@12:30 Req Phys: GEOVANYQINGVIMALJULIA Coronado Loc: [facility] VASCULAR 15 M3RH (Req'g Lo Img Loc: CT SCAN (OOS) [facility]: [facility] [place] [address] (Case [id number] COMPLETE) CTA ABDOMEN AND PELVIS (CT Detailed) CPT:12406 Contrast Media : Non-ionic Iodinated Reason for [...] 05, 2024 Date Verified: MAY 05, 2024 Quill Layer E-Sig:/ES/NÉSTOR PASCUAL Report: CTA ABDOMEN AND PELVIS [...] REQUIRED Primary Interpreting Staff: NÉSTOR PASCUAL, RADIOLOGIST (Quill Layer) /NÉSTOR CONNER [facility] Encounter Notes: All associated encounter notes This section contains the clinical notes associated to the Encounter. Date/Time Encounter Note(s) Provider Source May 12, 2024 09:50 AM ADMINISTRATIVE NOT E: LOCAL TITLE: Has Admin Note STANDARD TITLE: ADMINISTRATIVE NOTE DATE OF NOTE: MAY 12, 2024@09:50 ENTRY DATE: MAY 12, 2024@09:50:15 AUTHOR: KATIANA MARTINEZ EXP COSIGNER: URGENCY: STATUS: COMPLETED Reason for call Clinic Name: received a call from the daughter Bertha regarding previous messages left for Nara Collins She is looking for meterman care options Help at home for her father. she mentioned she has called several times and left numerous voice mails over the last 5 weeks. Please call back at [phone] [facility] /es/ KATIANA MARTINEZ MSA Signed: 05/12/2024 09:52 Receipt Acknowledged By: 05/12/2024 13:31 /es/ NARA COLLINS Retail Attendant * AWAITING SIGNATURE * KELI SHEFFIELD 05/12/2024 10:48 /es/ EFRAÍN VALIENTE for OJ A PETTIGLIO 05/12/2024 14:55 /es/ CHAYO VELASQUEZ [facility] Supervisory Retail Attendant KATIANA MARTINEZ [facility]
--- OUTSIDE RECORDS SUMMARY | 2024-05-24 19:25 | XMS_ITS | Encounter Summary ---
Author Name [place] Organization [place] Address [address] [place] [address] Care Team Providers Care Machine Boss Name Role Phone KYRA VELASQUEZ Primary Care [...] Ervin [facility] (WNR) MEDICARE [facility](W NR) * Aug 23, 2023 [id number] ANNALISA LOYD ITE PATIENT [facility] (WNR) MEDICARE ADVANTAGE [facility] (WNR) Aug 23, 2020 [id number] [phone] ANNALISA LOYD ITE PATIENT [facility] (WNR) MEDICARE [facility](W NR) Aug 23, 2012 [id number] ANNALISA LOYD ITE PATIENT Selected Encounter This section includes the information on record at [place] for the Encounter. Date/Time Encounter Type Encounter Description Reason Provider Source May 04, 2024 01:00 PM OFFICE O/P EST MOD 30 MIN VASCULAR SURGERY ICD-10-CM I71.40 Abdominal aortic aneurysm, without rupture, unspecified JUANISMELISSA SHIELDS JULIA Luna Jannette Encounter Template Text not used by [place] Assessments - Encounter Diagnoses This section includes the primary and secondary diagnoses documented for the Encounter. Date/Time Primary/Secondary Diagnosis Diagnosis Name Provider Source May 05, 2024 04:41 PM PRIMARY Abdominal aortic aneurysm, without rupture, unspecified SARWATMELISSAYamilet Luna [facility] Plan of Treatment: Future Appointments (+ 6 months) and Future Tests (+/- 45 days) The Plan of Treatment section includes future care activities for the patient from all [place] [facility]. This section includes future appointments and future orders which are active, pending or scheduled. Future Appointments This section includes appointments that were scheduled to occur 6 months from the date of the Encounter, up to a maximum of 20 appointments. The data comes from all [place] treatment [facility]. Appointment Date/Time Appointment Type Appointme nt Facility Name May 08, 2024 02:30 PM AMBULATORY - MEDICINE [facility] May 08, 2024 02:31 PM AMBULATORY - NONE [place] [facility] May 16, 2024 10:00 AM AMBULATORY - SURGERY [facility] May 16, 2024 10:01 AM AMBULATORY - SURGERY [facility] May 19, 2024 08:00 AM AMBULATORY - NONE [place] T [facility] May 26, 2024 10:00 AM AMBULATORY - NONE [place] T [facility] Jun 15, 2024 09:00 AM AMBULATORY - NONE [place] T [facility] Aug 29, 2024 10:30 AM AMBULATORY - NONE [place] T [facility] Aug 29, 2024 11:15 AM AMBULATORY - SURGERY [facility] Active, Pending, and [...] of theEncounter. The data comes from all [facility]. Test Date/Time Test Type Test Details Facility Name Apr 06, 2024 04:04 PM Consult Order COMMUNITY CARE-ALLERGY Cons Senior Application Programmer's Choice [facility] May 03, 2024 12:00 AM Laboratory - Chemi stry Order URORISK DIAGNOSTIC PROFILE(Q) 24H RENAL STONE KIT 24H URINE SP SONYA GAYLE T [facility] May 17, 2024 02:27 PM Consult Order CAREGIVER SUPPORT PROGRAM OUTPT Cons Senior Application Programmer's [facility] May 19, 2024 12:44 PM Consult Order COMMUNITY CARE-PALLIATIVE CARE Cons Senior Application Programmer's [facility] Lab Results: +/- 30 days [...] Type: PLASMA Comment: , Tests performed on [employer] SN:[id number] (405) Ordering Provider: DAVID CHONG Report Released Date/Time: Nov 15, 2023 11:30 AM Reporting Lab: [facility] [address] [place] [facility] [place] [address] Performing Lab: [facility] [address] [place] [facility] [place] [address] UREA NITROGEN 10 mg/dL 03-16May 04, 2024 10:32 AM [facility] CREATININE WITH eGFR PANEL Specimen Type: PLASMA Comment: , Tests performed on [employer] SN:[id number] (405) Ordering Provider: DAVID CHONG Report Released Date/Time: Nov 15, 2023 11:30 AM Reporting Lab: [facility] [address] [place] [facility] [place] [address] Performing Lab: [facility] [address] [place] [facility] [place] [address] CREATININE 0.91 mg/dL 0.50-1.50 eGFR(CKD-EPI 2020) 86 Vital Signs: All taken on the encounter date This section contains inpatient and outpatient Vital Signs collected on the date of the Encounter. Date/Time Temperature Pulse Blood Pressure Respiratory Rate SP02 Pain Height Weight Body Mass Index Source May 04, 2024 01:44 PM 97 78 130/72 17 98 0 [facility] Social History: Smoking [...] Feb 21, 2024 10:15 AM VA-TOBACCO USE PHARMACIST'S AIDE NO [facility] Feb 21, 2024 10:15 AM VA-TOBACCO USE MED NO [facility] Feb 21, 2024 10:15 AM VA-TOBACCO USE WI 30 MIN OF WAKEUP [facility] Feb 21, 2024 10:15 AM VA-TOBACCO USER EVERY DAY [facility] Jul 17, 2021 02:27 PM CURRENT SMOKER [facility] Jul 01, 2021 08:55 PM VA-VAAES TOBACCO U SE CURRENT NRT DECLINE [facility] Jul 01, 2021 02:41 PM CURRENT SMOKER [facility] Dec 08, 2020 [...] HOSPITAL Jul 08, 2017 ADVANCE DIRECTIVE DISCUSSION ROJAS,PURNIMA Jannette [facility] Radiology Reports: +/- [...] PM CTA ABDOMEN AND PE LVIS: GALINA LOYDEN [id number] -1945 M Exm Date: MAY 04, 2024@12:30 Req Phys: ONEL HCONG Pat Loc: [facility] VASCULAR 15 M3RH (Req'g Lo Img Loc: CT SCAN (OOS) Service: [place] [address] (Case [id number] COMPLETE) CTA ABDOMEN AND PELVIS (CT Detailed) CPT:32318 Contrast Media : Non-ionic Iodinated Reason for [...] 2024 Date Verified: MAY 05, 2024 Engineer Specialist E-Sig:/ES/NÉSTOR PASCUAL Report: CTA ABDOMEN AND PELVIS [...] Primary Interpreting Staff: NÉSTOR PASCUAL, RADIOLOGIST (Engineer Specialist) /[facility]OR [facility] Encounter Notes: All associated encounter notes This section contains the clinical notes associated to the Encounter. Date/Time Encounter Note(s) Provider Source May 04, 2024 01:13 PM VASCULAR SURGERY OUTPATIENT NOTE: LOCAL TITLE: Vas Surgery/Outpatient Progress Note STANDARD TITLE: VASCULAR SURGERY OUTPATIENT NOTE DATE OF NOTE: MAY 04, 2024@13:13 ENTRY DATE: MAY 04, 2024@13:13:45 AUTHOR: ONEL CHONG EXP COSIGNER: URGENCY: STATUS: COMPLETED VASCULAR SURGERY OUTPATIENT PROGRESS NOTE 78 y/o male w/PMHx as below presenting for routine Vascular Surgery F/U for aneurysm disease. Today, the patient denies acute abd/back/LE pain. Recent fall w/LEFT hip fx s/p repair. Denies lifestyle limiting claudication or CLI. Using walker/cane for support. Continues medical therapy w/statin. Not taking ASA as scheduled. Nondiabetic. BP controlled. (+) Smoking. (+) ETOH. (-) illicit drug use. ROS: Pertinent + as above VS Hx: 1. Ascending aorta 4.1cm (04/2023) 2. AAA 4.7cm 3. No popliteal aneurysm bilaterally PMHx: Z77.29 Exposure to potentially hazardous substance (RUST 917810931312773) F05. 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 Hypertension (SCT 10630659) T83.038A Family history of prostate cancer (SCT 666022369) Z80.3 Family history of malignant neoplasm of breast (SCT 659799241) Z77.098 Injury due to chemical exposure (RUST 560055873) PHYSICAL EXAM: Alert and oriented x3. Nonfocal. NAD. Abd: Soft, thin. NT/ND. Ext: WWP, motorsensory intact. Palpable bilateral femoral pulses and LEFT pedal pulses. No open wounds, LE edema. VS: BP: 130/72 (05/04/2024 13:44) Pulse: 78 (05/04/2024 13:44) Temp: 97 F [36.1 C] (05/04/2024 13:44) Resp: 17 (05/04/2024 13:44) HT(in): 69 in [175.3 cm] (04/06/2024 12:44) WT(lbs):118 lb [53.52 kg] (04/06/2024 12:44) 05/04/24 @ 1344 PULSE OXIMETRY: 98 Pain score: 0 (05/04/2024 13:44) STUDIES: 05/04/24: CTA ABDOMEN AND PELVIS Official read pending Reviewed w/attending surgeon AAA 4.7cm in size (+) stool burden Procedure: Arterial Duplex Exam Registered Bottom Finisher: ALETHEA TREJO Ordering Provider: Onel Chong Indication for exam: Hx AAA; eval popliteals Duplex Findings: Location: Diameter(cm) Diameter(cm) AP Transverse RIGHT: Above knee popliteal 1.0 1.0 Mid popliteal 0.9 0.9 Below knee popliteal 0.7 0.7 LEFT Above knee popliteal 0.8 0.8 Mid popliteal 0.9 0.9 Below knee popliteal 0.9 0.9 Summary: RIGHT: Occluded distal superficial femoral and popliteal artery. No evidence of aneurysm. LEFT: Patent popliteal artery with no evidence of aneurysm. Bi-reverse Doppler waveforms. No previous exam from this lab available for comparison. The above study results were discussed w/the patient. A/P: 78 y/o male w/asymptomatic, stable AAA below size threshold for repair and no evidence of popliteal aneurysm. Recommend ongoing surveillance w/RTC 6 months w/CTA complete aorta to also F/U ascending aorta. Continue medical therapy w/statin and scheduled ASA, patient amenable. Maintain appropriate blood pressure control. Recommend smoking cessation. For acute clinical concerns, recommend patient present to the closest ED for evaluation. Greater than 50% of this session was dedicated to counseling and coordination of care. Yes Time spent with patient (minutes): 15 Summary of Counseling and/or Coordination of Care: F/U /vivian/ ONEL CHONG Physician Manager Rn Case Signed: 05/05/2024 16:42 ONEL CHONG [facility]
--- OUTSIDE RECORDS SUMMARY | 2024-05-24 19:25 | XMS_ITS ---
Author Name [facility] [place] Address [address] [place] [address] Care Team Providers Care Dietitian Helper Name Role Phone KYRA VELASQUEZ Primary Care [...] Ervin's Name Patient's Relationship to Policy Ervin [facility] (WNR) MEDICARE ADVANTAGE [facility](W NR) * Aug 23, 2023 [id number] ANNALISA LOYD ITE PATIENT [facility] (WNR) MEDICARE ADVANTAGE M[facility] (WNR) Aug 23, 2020 [id number] [phone] ANNALISA LOYD ITE PATIENT [facility] (WNR) MEDICARE ADVANTAGE [facility](W NR) Aug 23, 2012 [id number] ANNALISA LOYD ITE PATIENT Selected Encounter This section includes the information on record at [place] for the Encounter. Date/Time Encounter Type Encounter Description Reason Pro vider Source May 12, 2024 01:42 PM Outpatient Encounter TELEPHONE PRIMARY CARE IHE Encounter Template Text not used by [facility] Plan of Treatment: Future Appointments (+ 6 months) and Future Tests (+/- 45 days) The Plan of Treatment section includes future care activities for the patient [facility] [place] [facility] This section includes future appointments and future orders which are active, pending or scheduled. Future Appointments This section includes appointments that were scheduled to occur 6 months from the date of the Encounter, up to a maximum of 20 appointments. The data comes from all [facility] facilities. Appointment Date/Time Appointment Type Appointme nt Facility Name May 16, 2024 10:00 AM AMBULATORY - SURGERY [facility] Jeimy [facility] May 16, 2024 10:01 AM AMBULATORY - SURGERY [facility] May 19, 2024 08:00 AM AMBULATORY - NONE [place] [facility] May 26, 2024 10:00 AM AMBULATORY - NONE [place] [facility] Jun 15, 2024 09:00 AM AMBULATORY - NONE [place] [facility] Aug 29, 2024 10:30 AM AMBULATORY - NONE [place] [facility] Aug 29, 2024 11:15 AM [facility] [...] of theEncounter. The data comes from all [facility]. Test Date/Time Test Type Test Details Facility Name Apr 06, 2024 04:04 PM Consult Order COMMUNITY CARE-ALLERGY Cons Rn [facility] May 03, 2024 12:00 AM Laboratory - Chemi stry Order URORISK DIAGNOSTIC PROFILE(Q) 24H RENAL STONE KIT 24H URINE SP [facility] May 17, 2024 02:27 PM Consult Order CAREGIVER SUPPORT PROGRAM OUTPT Cons Rn [facility] May 19, 2024 12:44 PM Consult Order COMMUNITY CARE-PALLIATIVE CARE Cons Rn [facility] Lab Results: +/- 30 days of the encounter This section includes the Chemistry and Hematology Lab Results on record with [place] for the patient. Radiology Reports and Pathology Reports are provided separately, in subsequent sections. Lab Results This section contains the Chemistry/Hematology Results that were resulted 30 days before or 30 daysafter the date of the Encounter. Date/Time Source Result Type Result - Unit Interpretation Reference Range Comment May 04, 2024 10:32 AM [facility] UREA NITROGEN Specimen Type: PLASMA Comment: , Tests performed on [place] [employer] SN:[id number]) Ordering Provider: DAVID FAM Report Released Date/Time: Nov 15, 2023 11:30 AM Reporting Lab: [facility] [address] [facility] [address] Performing Lab: [facility] [address] [facility] [address] UREA NITROGEN 10 mg/dL 03-16May 04, 2024 10:32 AM [facility] CREATININE WITH eGFR PANEL Specimen Type: PLASMA Comment: , Tests performed on [place] [employer] SN:[id number] (405) Ordering Provider: DAVID FAM Report Released Date/Time: Nov 15, 2023 11:30 AM Reporting [facility] [address] [facility] [address] Performing [facility] [address] [facility] [address] CREATININE 0.91 mg/dL 0.50-1.50 eGFR(CKD-EPI 2020) 86 [...] 2024 10:15 AM VA-TOBACCO USER EVERY DAY [facility] Tobacco Use History This section includes a history of the smoking, or tobacco-related health factors, that were collected on or before the date of the Encounter. The data comes from the [place] facility where the Encounter took place. Date/Time Smoking Status/Tobacco Use Comment F acility Feb 21, 2024 10:15 AM VA-TOBACCO USE ADVICE [facility] Feb 21, 2024 10:15 AM VA-TOBACCO USE CHEMICAL ENGINEERING INTERN NO [facility] Feb 21, 2024 10:15 AM VA-TOBACCO USE MED NO [facility] Feb 21, 2024 10:15 AM VA-TOBACCO USE WI 30 MIN OF WAKEUP [facility] Feb 21, 2024 10:15 AM VA-TOBACCO USER EVERY DAY [facility] Jul 17, 2021 02:27 PM CURRENT SMOKER REINIER GAYLE [facility] Jul 01, 2021 08:55 PM [...] CTA ABDOMEN AND PE LVIS: GALINA LOYD [id number] -1945 M Exm Date: MAY 04, 2024@12:30 Req Phys: GEOVANYQINGVIMAL Luna Ivonne Loc: [facility] VASCULAR 15 M3RH (Req'g Lo Img Loc: CT SCAN (OOS) [facility]: [facility] [place] [address] (Case [id number] COMPLETE) CTA ABDOMEN AND PELVIS (CT Detailed) CPT:33863 Contrast Media : Non-ionic Iodinated Reason for [...] 05, 2024 Date Verified: MAY 05, 2024 Clinical Implementation Specialist E-Sig:/ES/NÉSTOR PASCUAL Report: CTA ABDOMEN AND [...] REQUIRED Primary Interpreting Staff: NÉSTOR PASCUAL, RADIOLOGIST (Clinical Implementation Specialist) /NÉSTOR CONNER [facility] Encounter Notes: All associated encounter notes This section contains the clinical notes associated to the Encounter. Date/Time Encounter Note(s) Provider Source May 12, 2024 01:45 PM SOCIAL WORK RISK A SSESSMENT SCREENING NOTE: LOCAL TITLE: Social Work Triage Assessment STANDARD TITLE: SOCIAL WORK RISK ASSESSMENT SCREENING NOTE DATE OF NOTE: MAY 12, 2024@13:45 ENTRY DATE: MAY 12, 2024@13:45:31 AUTHOR: PILAR THAYER COSIGNER: URGENCY: STATUS: COMPLETED SOCIAL WORK TRIAGE ASSESSMENT Referral source: Family Presenting issues: Access to care Functional limitations Emotional distress Caregiver distress Need for in-home support services Brief summary: Daughter, Bertha, called to request additional home health care in the home. Father is 100%SC and recently had rehabiltatibe care at [place] and came home with two wounds on his buttocks that were not present at time of admission. The daughter stated that manager of compliance noted the wounds but they were not documented. Father has now been getting wound care form [facility] and is doing much better. Daughter is concerned for 's spouse, as she is [place] and believes it is her full job to care for . He is very resistive to directions from her and will nt take meds or shower in timely manner. However, he reports to providers that he is doing all the tasks such as showering and getting up at night for urination. He is also quite agitated with family members as he had stroke five years ago, but states it was only two years ago. 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 He needs to have someone providin showers and helping with OT and possibly physical therapy. He does not have cancer at this time and just funtions in cultural manner of wanting spouse to do everything and it is causing her health to falter. She recently had car accident and now is needing help from daughters. The family wants to keep father at home and needs additional support in home to care for him. He will verbalize that no help is needed, but does not do any activiity and resisits activities such as showerig or taking meds from spouse and family. Is case management recommended? No Social Work Interventions and Plan: VELMA recommended that the nurse case management assistant do assessment to determine care needs that can be ordered by [place] for his ih-home care. SW will determine next week if the case management assistant is avaialable or if the back-up case management assistant needs to be signed to case for ongoing care needs. SW will also provide ombudman conact for issues that family had with care provided at recent group home. DAughter was appreciative of time and wants father to get codi without total burden being placed on her mother( the veterans spouse). /vivian/ PILAR THAYER Associate Professor Of Medicine Signed: 05/12/2024 14:20 Receipt Acknowledged By: 05/15/2024 07:25 /vivian/ PILAR [facility]
--- OUTSIDE RECORDS SUMMARY | 2024-05-24 19:25 | XMS_ITS | Encounter Summary ---
Author Name [facility] [place] Organization [place] Address [address] [place] [address] Care Team Providers Care Customer Account Specialist Name Role Phone KYRA VELASQUEZ Primary [...] Relationship to Policy Ervin [facility] (WNR) MEDICARE ADVANTAGE MCR(W NR) * Aug 23, 2023 [id number] [phone] ANNALISA LOYD ITE PATIENT [facility] (WNR) MEDICARE ADVANTAGE [facility] (WNR) Aug 23, 2020 [id number] [phone] ANNALISA LOYD ITE PATIENT [facility] (WNR) MEDICARE [facility](W NR) Aug 23, 2012 [id number] [phone] ANNALISA LOYD ITE PATIENT Selected Encounter This section includes the information on record at [place] for the Encounter. Date/Time Encounter Type Encounter Description Reason Provider Source May 16, 2024 10:01 AM APPROPOS MTHD OFFLOADING RXD WOUND TREAT & OSTOMY CARE ICD-10-CM L89.43 Pressr ulcer of contig site of back, buttock and hip, stg 3 CECILIO QUINTERO AM IHE Encounter Template Text not used by [place] Assessments - Encounter Diagnoses This section includes the primary and secondary diagnoses documented for the Encounter. Date/Time Primary/Secondary Diagnosis Diagnosis Name Provider Source May 16, 2024 10:44 AM PRIMARY Pressr ulcer of contig site of back, buttock and hip, stg 3 GRACIE QUINTERO [facility] May 16, 2024 10:44 AM SECONDARY Pressure ulcer of other site, stage 3 GRACIE QUINTERO [facility] Plan of Treatment: Future Appointments (+ 6 months) and Future Tests (+/- 45 days) The Plan of Treatment section includes future care activities for the patient from [facility] [place] [facility]. This section includes future appointments and future [...] AMBULATORY - NONE [place] [facility] May 26, 2024 10:00 AM AMBULATORY - NONE [place] [facility] Jun 15, 2024 09:00 AM AMBULATORY - NONE [place] [facility] Aug 29, 2024 10:30 AM AMBULATORY - NONE [place] [facility] Aug 29, 2024 11:15 AM AMBULATORY - SURGERY [facility] Active, [...] The data comes from all [place] treatment [facility]. Test Date/Time Test Type Test Details Facility Name Apr 06, 2024 04:04 PM Consult Order COMMUNITY CARE-ALLERGY Cons Profile [facility] May 03, 2024 12:00 AM Laboratory - Chemi stry Order URORISK DIAGNOSTIC PROFILE(Q) 24H RENAL STONE KIT 24H URINE SP [facility] May 17, 2024 02:27 PM Consult Order CAREGIVER SUPPORT PROGRAM OUTPT Cons Profile [facility] May 19, 2024 12:44 PM Consult Order COMMUNITY CARE-PALLIATIVE CARE Cons Profile [facility] Lab Results: +/- [...] Range Comment May 04, 2024 10:32 AM [facility] UREA NITROGEN Specimen Type: PLASMA Comment: , Tests performed on [place] [employer] SN:[id number] (405) Ordering Provider: DAVID FAM Report Released Date/Time: Nov 15, 2023 11:30 AM Reporting Lab: [facility] [address] [facility] [address] Performing Lab: [facility] [address] [facility] [address] UREA NITROGEN 10 mg/dL 03-16May 04, 2024 10:32 AM [facility] CREATININE WITH eGFR PANEL Specimen Type: PLASMA Comment: , Tests performed on [employer] SN:[id number] (405) Ordering Provider: DAVID FAM Report Released Date/Time: Nov 15, 2023 11:30 AM Reporting Lab: [facility] [address] [place] [address] [facility]forming [facility] [address] [facility] [address] CREATININE 0.91 mg/dL 0.50-1.50 eGFR(CKD-EPI 2020) 86 [...] 2024 10:15 AM VA-TOBACCO USER EVERY DAY [facility] Tobacco Use History This section includes a history of the smoking, or tobacco-related health factors, that were collected on or before the date of the Encounter. The data comes from the [place] facility where the Encounter took place. Date/Time Smoking Status/Tobacco Use Comment F acility Feb 21, 2024 10:15 AM VA-TOBACCO USE ADVICE [facility] Feb 21, 2024 10:15 AM VA-TOBACCO USE PAINTER MAINTENANCE NO [facility] Feb 21, 2024 10:15 AM VA-TOBACCO USE MED NO [facility] Feb 21, 2024 10:15 AM VA-TOBACCO USE WI 30 MIN OF WAKEUP [facility] Feb 21, 2024 10:15 AM VA-TOBACCO USER EVERY DAY [facility] Jul 17, 2021 02:27 PM CURRENT SMOKER [facility] Jul 01, 2021 08:55 PM VA-VAAES TOBACCO U SE CURRENT NRT DECLINE [facility] Jul 01, 2021 02:41 PM CURRENT SMOKER [facility] Dec 08, 2020 [...] CTA ABDOMEN AND PE LVIS: GALINA LOYD [id number] -1945 M Exm Date: MAY 04, 2024@12:30 Req Phys: VIMAL FAM Loc: [facility] 15 M3RH (Req'g Lo Img Loc: CT SCAN (OOS) Service: [place] [address] (Case [id number] COMPLETE) CTA ABDOMEN AND PELVIS (CT Detailed) CPT:45886 Contrast Media : Non-ionic Iodinated Reason for [...] 05, 2024 Date Verified: MAY 05, 2024 Dialysis Rn E-Sig:/ES/NÉSTOR PASCUAL Report: CTA ABDOMEN AND PELVIS [...] REQUIRED Primary Interpreting Staff: NÉSTOR PASCUAL, RADIOLOGIST (Dialysis Rn) /NÉSTOR CONNER [facility] Encounter Notes: All associated encounter notes This section contains the clinical notes associated to the Encounter. Date/Time Encounter Note(s) Provider Source May 16, 2024 10:19 AM WOUND CARE NOTE: LOCAL TITLE: Wound Care Note STANDARD TITLE: WOUND CARE NOTE DATE OF NOTE: MAY 16, 2024@10:19 ENTRY DATE: MAY 16, 2024@10:21:38 AUTHOR: DANIELLE QUINTERO EXP COSIGNER: URGENCY: STATUS: COMPLETED REASON FOR VISIT: [...] Injury due to chemical exposure (SNOMED CT [id number]) 69 in [175.3 cm] (04/06/2024 12:44) 118 lb [53.52 kg] (04/06/2024 12:44) BODY MASS INDEX - APR 06, 2024@12:44:02 17.5 NARRATIVE: 78 yo male with multiple medical problems including cva 2020, sdh, history of seizures, nephrolithiasis, h/o bl ureteral stents s/p removal, htn, tobacco use, follicular lymphoma, AAA, thoracic aortic aneurysm, etoh dependence in remission seen via out of [facility] for assessment of pressure injuries to LEFT shoulder and LEFT buttock. Vet has continued with use of MH gel and mepilex foam border cover dressings, with VNA assistance 34x/week. His assist with PRN changes on non-VNA days. Wounds prgessing nicely, denies any new or worsening wounds. LOCATION: posterior LEFT shoulder, unstageable PI WOUND BED TISSUES: 100% pink moist. DIMENSIONS: 3.3 x 0.8 irregular shape UNDERMINING/TUNNELING: none observed EDGES: attached, ragged. EXUDATE: light serosang ODOR: none reported PERIWOUND SKIN: local erythema, non-streaking. SOI: none observed PAIN: none reported. LOCATION: Left ischium, Stage 3 PI. WOUND BED TISSUES: Moist red granulation DIMENSIONS: 1.0 x 1.0cm shallow UNDERMINING/TUNNELING: slight undermining and wound probes to ~1.0cm EDGES: rolled, ragged, detached EXUDATE: light serosang ODOR: none reported. PERIWOUND SKIN: blanchable local erythema SOI: none observed PAIN: none reported by Vet. WOUND CARE PROCEDURE: -Wounds cleansed with NS and gauze, measured and assessed as above. -Dressed with MH gel for antimicrobial and autolytic debridement benefits. -Covered with Mepilex foam border cover dressing for exudate mgmt and environmental barrier. RECS/PLAN: -Continue with current POC, w/ VNA assistance for wound care and dressing changes as outlined above. Supplies provided/refilled. -RTC x1 month for f/u. Encouraged to call clinic with any questions or concerns or to report back to ED if condition worsens or if SOI re-develop at any point. TIME SPENT ON THIS ENCOUNTER: 45 min /vivian/ DANIELLE QUINTERO BSN, RN, CWON Signed: 05/16/2024 10:44 DANIELLE QUINTERO [facility]
--- OUTSIDE RECORDS SUMMARY | 2024-05-24 19:25 | XMS_ITS ---
[place] NUTRITION INDIV SUBSEQ [facility] Encounter Summary Created on: May 24, 2024 GALINA LOYD : 1945 Sex: Male Author Name [facility] [place] Organization [place] Address [address] [place] [address] Care Team Providers Care Wheelchair Van Operator First Responder Name Role Phone KYRA VELASQUEZ Primary Care [...] Policy Ervin [facility] (WNR) MEDICARE [facility](W NR) * Aug 23, 2023 [id number] ANNALISA LOYD ITE PATIENT [facility] (WNR) MEDICARE ADVANTAGE [facility] (WNR) Aug 23, 2020 [id number] [phone] ANNALISA LOYD ITE PATIENT [facility] (WNR) MEDICARE [facility](W NR) Aug 23, 2012 [id number] ANNALISA LOYD ITE PATIENT Selected Encounter This section includes the information on record at [place] for the Encounter. Date/Time Encounter Type Encounter Description Reason Provider Source May 08, 2024 02:31 PM MED NUTRITION INDIV SUBSEQ NUTRITION/DIETETI CS-INDIVIDUAL ICD-10-CM Z71.3 Dietary counseling and surveillance PURNIMA CROOK [facility] Encounter Template Text not used by [facility] Assessments - Encounter Diagnoses This section includes the primary and secondary diagnoses documented for the Encounter. Date/Time Primary/Secondary Diagnosis Diagnosis Name Provider Source May 08, 2024 03:20 PM PRIMARY Dietary counseling and surveillance PURNIMA CROOK SON[facility] May 08, 2024 03:20 PM SECONDARY Body mass index [BMI] 19.9 or less, adult PURNIMA CROOK [facility] Plan of Treatment: Future Appointments (+ 6 months) and Future Tests (+/- 45 days) The Plan of Treatment section includes future care activities for the patient from all [place] [facility]. This section includes future appointments and future orders which are active, pending or scheduled. Future Appointments This section includes appointments that were scheduled to occur 6 months from the date of the Encounter, up to a maximum of 20 appointments. The data comes from all [place] treatment facilities. Appointment Date/Time Appointment Type Appointme nt Facility Name May 16, 2024 10:00 AM AMBULATORY - SURGERY [facility] May 16, 2024 10:01 AM AMBULATORY - SURGERY [facility] May 19, 2024 08:00 AM AMBULATORY - NONE [place] [place] [facility] May 26, 2024 10:00 AM AMBULATORY - NONE [place] [facility] Jun 15, 2024 09:00 AM AMBULATORY - NONE [place] [facility] Aug 29, 2024 10:30 AM AMBULATORY - NONE [place] [facility] Aug 29, 2024 11:15 AM AMBULATORY - SURGERY [facility] Active, Pending, and Scheduled Orders This section includes a listing of several types of active, pending, and scheduled orders, including clinic medications orders, diagnostic test orders, procedure orders and consult orders; where the start date of the order is 45 days before the date of the Encounter or 45 days after the date of theEncounter. The data comes from all [facility]. Test Date/Time Test Type Test Details Facility Name Apr 06, 2024 04:04 PM Consult Order COMMUNITY CARE-ALLERGY Cons Indoor Plant Technician's Choice [facility] May 03, 2024 12:00 AM Laboratory - Chemi stry Order URORISK DIAGNOSTIC PROFILE(Q) 24H RENAL STONE KIT 24H URINE SP SONYA [facility] May 17, 2024 02:27 PM Consult Order CAREGIVER SUPPORT PROGRAM OUTPT Cons Indoor Plant Technician's [facility] May 19, 2024 12:44 PM Consult Order COMMUNITY CARE-PALLIATIVE CARE Cons Indoor Plant Technician's [facility] Lab Results: +/- 30 days of the encounter This section includes the Chemistry and Hematology Lab Results on record with [place] for the patient. Radiology Reports and Pathology Reports are provided separately, in subsequent sections. Lab Results This section contains the Chemistry/Hematology Results that were resulted 30 days before or 30 daysafter the date of the Encounter. Date/Time Source Result Type Result - Unit Interpretation Reference Range Comment May 04, 2024 10:32 AM [facility] UREA NITROGEN Specimen Type: PLASMA Comment: , Tests performed on Hamlin Pley Moses [id number] (405) Ordering Provider: DAVID FAM Report Released Date/Time: Nov 15, 2023 11:30 AM Reporting Lab: [facility] [address] [facility] [place] [address] Performing Lab: [facility] [address] [facility] [address] UREA NITROGEN 10 mg/dL 03-16May 04, 2024 10:32 AM [facility] CREATININE WITH eGFR PANEL Specimen Type: PLASMA Comment: , Tests performed on Hamlin Pley Lopes [id number] (405) Ordering Provider: DAVID FAM Report Released Date/Time: Nov 15, 2023 11:30 AM Reporting Lab: [facility] [address] [facility] [place] [address] Performing Lab: [facility] [address] [facility] [place] [address] CREATININE 0.91 mg/dL 0.50-1.50 eGFR(CKD-EPI 2020) 86 [...] Feb 21, 2024 10:15 AM VA-TOBACCO USE PIPE CHANGER NO [facility] Feb 21, 2024 10:15 AM VA-TOBACCO USE MED NO [facility] Feb 21, 2024 10:15 AM VA-TOBACCO USE WI 30 MIN OF WAKEUP [facility] Feb 21, 2024 10:15 AM VA-TOBACCO USER EVERY DAY [facility] Jul 17, 2021 02:27 PM CURRENT SMOKER [facility] Jul 01, 2021 08:55 PM VA-VAAES TOBACCO U SE CURRENT NRT DECLINE [facility] Jul 01, 2021 02:41 PM CURRENT SMOKER [facility] Dec 08, 2020 08:45 [...] CTA ABDOMEN AND PE LVIS: GALINA LOYD [id number] -1945 M Exm Date: MAY 04, 2024@12:30 Req Phys: VIMAL FAM Loc: [facility] VASCULAR 15 M3RH (Req'g Lo Img Loc: CT SCAN (OOS) Service: [place] [facility] [address] (Case [id number] COMPLETE) CTA ABDOMEN AND PELVIS (CT Detailed) CPT:39356 Contrast Media : Non-ionic Iodinated Reason for [...] 05, 2024 Date Verified: MAY 05, 2024 Tufter Hand E-Sig:/ES/NÉSTOR PASCUAL Report: CTA ABDOMEN AND PELVIS [...] REQUIRED Primary Interpreting Staff: NÉSTOR PASCUAL, RADIOLOGIST (Tufter Hand) /NÉSTOR [facility] Encounter Notes: All associated encounter notes This section contains the clinical notes associated to the Encounter. Date/Time Encounter Note(s) Provider Source May 08, 2024 07:15 AM NUTRITION DIETETIC S NOTE: LOCAL TITLE: Nutrition Follow-Up Note STANDARD TITLE: NUTRITION DIETETICS NOTE DATE OF NOTE: MAY 08, 2024@07:15 ENTRY DATE: MAY 08, 2024@07:15:59 AUTHOR: PURNIMA CROOK EXP COSIGNER: URGENCY: STATUS: COMPLETED NUTRITION OUTPATIENT ASSESSMENT: Follow-up Visit (Telehealth) ----Pt identity confirmed using two pt identifiers (Last 4 SSN, Full Name)---- Nutrition Following for: unintended weight loss Last nutrition appointment: 12/13/23 Time spent today: 15 minutes Dx: Z71.3 Dietary counseling and surveillance; z68.1 Body mass index [BMI] 19.9 or less, adult ------Assessment------ Pt is a 78 y.o. here for a nutrition follow up - pt accompanied by today - eating about the same - no changes in PO or appetite - 121 lbs in office vs. 119 lbs on home scale - continues eating 2 meals per day, rarely eats snacks - drinking 2 glass of whole milk with CIB per day - pt does not prefer Ensure - feels that lack of movement/activity is impacting appetite - describes that when working with physical therapy, feels pt appetite improved ------- Previous Nutrition Goals Of Intervention: 1. Pt willing to aim to increase to drinking two glasses of whole milk with [employer] Breakfast Essentials per day --> goal achieved, ongoing 2. Pt will aim to consume > 75% of meals --> goal likely achieved as pt has maintained weight ------- Nutrition Hx: B: blueberry muffin with whipped cream, whole milk with CIB L: skipped Dinner: 1 poached egg, 1 slice toast with butter no snacks Beverage - water, decaf iced tea Anthropometrics: Wt: 121.7 lbs - in office on 05/08/24 // Ht: 69 in [175.3 cm] (04/06/2024 12:44) // BMI: BODY MASS INDEX - 18 Weight History: Measurement DT WEIGHT LB(KG)[BMI] 04/06/2024 12:44 118(53.52)[17] 02/21/2024 10:09 124.9(56.65)[18] 12/16/2023 10:13 122.3(55.47)[18] ------Nutrition Diagnosis------ Previous Nutrition Diagnosis: unintentional weight loss Related to: poor appetite/PO intake As evidenced by: previous 12.3 lb (10%) weight loss in one month in 2022; pt reported small portions and skipping lunch meal Etiology: physiological/metabolic Status of Nutrition Diagnosis: Active, improving ------Nutrition Intervention ------ Nutrition Prescription : Healthy Diet - encourage aiming for 2-3 meals per day with occasional snacks - encourage increasing to two glasses of whole milk with [employer] Breakfast Essentials per day *Nutrition counseling based on problem solving strategy Discussed: weight trends and eating patterns. Pt continues to struggle with poor appetite and having difficulty regaining weight. feels that when pt was engaged with physical therapy that appetite/PO intake improved. Pt also feels that this was true. Set goals today around increasing movement to see if this helps stimulate appetite for pt. Goal: - pt will aim for 5-10 minutes of movement/activity per day - pt will continue to drink 2 glasses of whole milk with CIB per day LEARNER: , 's LEARNING CONSIDERATIONS/IDENTIFIED BARRIERS: none COMPREHENSION/MOTIVATION TO LEARN: fair TEACHING METHOD: discussion, goal setting -----Nutrition Monitoring/Evaluation----- Previous Monitors: Prevent further weight loss and/or gradual weight gain - Status: Goal achieved, weight up ~3 lbs in the past month New Monitors Indicator Criteria: weight - Prevent further weight loss and/or gradual weight gain Patient Indicated Date (PID): 3 months via - please reach out to pt to schedule. Thank you. - Discussed month F/u with L[facility]. RTC placed // PURNIMA CROOK CLINICAL DIETITIAN Signed: 05/08/2024 15:21 Receipt Acknowledged By: * AWAITING SIGNATURE * ADITI GARCIA JILL C [facility]
--- OUTSIDE RECORDS SUMMARY | 2024-05-24 19:25 | XMS_ITS ---
Author Name Department of Vetera Affairs ([place]) Organization [place] of Veter[place] Address [address] [place] [address] Care Team Providers Care Stonecutter Hand Name Role Phone KYRA VELASQUEZ Primary [...] Ervin [facility] (WNR) MEDICARE ADVANTAGE [facility](W NR) * Aug 23, 2023 [id number] ANNALISA LOYD ITE PATIENT [facility] (WNR) MEDICARE ADVANTAGE [facility] (WNR) Aug 23, 2020 [id number] [phone] ANNALISA LOYD ITE PATIENT [facility] (WNR) MEDICARE [facility](W NR) Aug 23, 2012 [id number] [phone] ANNALISA LOYD ITE PATIENT Selected Encounter This section includes the information on record at [place] for the Encounter. Date/Time Encounter Type Encounter Description Reason Pro vider Source May 02, 2024 12:00 PM Outpatient Encounter ADMIN PAT ACTIVTIES (MASNONCT) IHE Encounter Template Text not used by ME Plan of Treatment: Future Appointments (+ 6 months) and Future Tests (+/- 45 days) The Plan of Treatment section includes future care activities for the patient from all [place] [facility]. This section includes future appointments and future orders which are active, pending or scheduled. Future Appointments This section includes appointments that were scheduled to occur 6 months from the date of the Encounter, up to a maximum of 20 appointments. The data comes from all [facility]. Appointment Date/Time Appointment Type Appointme nt Facility Name May 03, 2024 02:30 PM AMBULATORY - [facility] [place] [facility] May 04, 2024 10:30 AM AMBULATORY - MEDICINE [facility] May 04, 2024 11:00 AM AMBUL[facility]ORY - [facility] [place] [facility] May 04, 2024 12:30 PM AMBULATORY - NONE [place] [facility] May 04, 2024 01:00 PM AMBULATORY - SURG[facility] [place] [facility] May 08, 2024 02:30 PM AMBULATORY - MEDICINE [facility] May 08, 2024 02:31 PM AMBULATORY - NONE [place] [facility] May 16, 2024 10:00 AM AMBULATORY - SURGERY [facility] May 16, 2024 10:01 AM AMBULATORY - [facility]GERY [place] [facility] May 19, 2024 08:00 AM AMBULATORY - NONE [place] [facility] May 26, 2024 10:00 AM AMBULATORY - NONE [place] [facility] Jun 15, 2024 09:00 AM AMBULATORY - NONE [place] [facility] Aug 29, 2024 10:30 AM AMBULATORY - NONE [place] [facility] Aug 29, 2024 11:15 AM AMBULATORY - SURGERY [place] [facility] Active, Pending, and Scheduled Orders This section includes a listing of several types of active, pending, and scheduled orders, including clinic medications orders, diagnostic test orders, procedure orders and consult orders; where the start date of the order is 45 days before the date of the Encounter or 45 days after the date of theEncounter. The data comes from all [facility]. Test Date/Time Test Type Test Details Facility Name Apr 06, 2024 04:04 PM Consult Order COMMUNITY CARE-ALLERGY Cons Computerized Mill Recorder's Choice [facility] May 03, 2024 12:00 AM Laboratory - Chemi stry Order URORISK DIAGNOSTIC PROFILE(Q) 24H RENAL STONE KIT 24H URINE SP [facility] May 17, 2024 02:27 PM Consult Order CAREGIVER SUPPORT PROGRAM OUTPT Cons Computerized Mill Recorder's [facility] May 19, 2024 12:44 PM Consult Order COMMUNITY CARE-PALLIATIVE CARE Cons Computerized Mill Recorder's [facility] SONYA [facility] Lab Results: +/- 30 days of the encounter This section includes the Chemistry and Hematology Lab Results on record with [place] for the patient. Radiology Reports and Pathology [...] Type: PLASMA Comment: , Tests performed on Damage Hounds [id number] (405) Ordering Provider: DAVID FAM Report Released Date/Time: Nov 15, 2023 11:30 AM Reporting [facility] [address] [place] [facility] [place] [address] Performing Lab: [facility] [address] [facility] [address] UREA NITROGEN 10 mg/dL 03-16May 04, 2024 10:32 AM [facility] CREATININE WITH eGFR PANEL Specimen Type: PLASMA Comment: , Tests performed on Damage Hounds [id number] ([id number]) Ordering Provider: DAVID FAM Report Released Date/Time: Nov 15, 2023 11:30 AM Reporting Lab[facility] [address] [place] [facility] [place] [address] Performing Lab: [facility] [address] [facility] [address] CREATININE 0.91 mg/dL 0.50-1.50 eGFR(CKD-EPI 2020) 86 Social History: Smoking Status (Most current) and Tobacco Use (All prior to encounter date) This section includes the most current, and the historical, smoking and tobacco- related health factors from the [place] facility where the Encounter took place. Current Smoking Status This section includes the most current smoking, or tobacco-related health factor, from the [place] facility where the Encounter took place. Date/Time Current Smoking Status Comment Facil ity Feb 21, 2024 10:15 AM VA-TOBACCO USE WI 30 MIN OF WAKEUP [facility] Tobacco Use History This section includes a history of the smoking, or tobacco-related health factors, that were collected on or before the date of the Encounter. The data comes from the [place] facility where the Encounter took place. Date/Time Smoking Status/Tobacco Use Comment F acility Feb 21, 2024 10:15 AM VA-TOBACCO USE ADVICE [facility] Feb 21, 2024 10:15 AM VA-TOBACCO USE SURGICAL SERVICES TECH NO [facility] Feb 21, 2024 10:15 AM VA-TOBACCO USE MED NO [facility] Feb 21, 2024 10:15 AM VA-TOBACCO USE WI 30 MIN OF WAKEUP [facility] Feb 21, 2024 10:15 AM VA-TOBACCO USER EVERY DAY [facility] Jul 17, 2021 02:27 PM CURRENT SMOKER [facility] Jul 01, 2021 08:55 PM VA-VAAES TOBACCO U SE CURRENT NRT DECLINE [facility] Jul 01, 2021 02:41 PM CURRENT SMOKER [facility] Dec [...] this document. The data comes from all [place] facilities. Date Advance Directives Provider Source Nov 18, 2017 ADVANCE DIRECTIVE REBECCARADHA Husam [facility] Jul 08, 2017 ADVANCE DIRECTIVE [...] the Encounter. The data comes from all [place] treatment facilities. Date/Time Radiology Report Provider Source May 04, 2024 12:30 PM CTA ABDOMEN AND PE LVIS: GALINA LOYD [id number] -1945 M Exm Date: MAY 04, 2024@12:30 Req Phys: VIMAL FAM Pat Loc: [facility] VASCULAR 15 M3RH (Req'g Lo Img Loc: CT SCAN (OOS) Service: Unknown [facility] [address] (Case [id number] COMPLETE) CTA ABDOMEN AND PELVIS (CT Detailed) CPT:55486 Contrast Media : Non-ionic Iodinated Reason for [...] 05, 2024 Date Verified: MAY 05, 2024 Animal Assistant E-Sig:/ES/NÉSTOR PASCUAL Report: CTA ABDOMEN AND [...] REQUIRED Primary Interpreting Staff: NÉSTOR PASCUAL, RADIOLOGIST (Animal Assistant) /NÉSTOR [facility] Encounter Notes: All associated encounter notes This section contains the clinical notes associated to the Encounter. Date/Time Encounter Note(s) Provider Source May 02, 2024 12:00 PM NONVA NOTE: LOCAL TITLE: NonVA Medical Records STANDARD TITLE: NONVA NOTE DATE OF NOTE: MAY 02, 2024@12:00 ENTRY DATE: MAY 12, 2024@13:56:37 AUTHOR: ETIENNE WOOD EXP COSIGNER: URGENCY: STATUS: COMPLETED VistA Imaging - Scanned Document Date of Service (Procedure/Event): 05/02/2024 Note Title: NonVA Medical Records Origin: NON-ME Type: PROCEDURE RECORD/REPORT Specialty: LABORATORY LABORATORY RESULTS [facility] SCANNED DOCUMENT SIGNATURE NOT REQUIRED Electronically Filed: 05/12/2024 by: ETIENNE WOOD Receipt Acknowledged By: * AWAITING SIGNATURE * KYRA VELASQUEZ,ETIENNE [facility]
--- OUTSIDE RECORDS SUMMARY | 2024-05-24 19:25 | XMS_ITS | Encounter Summary ---
Author Name Department of Vetera Affairs (OR) Organization Department of Vetera Affairs ([place]) Address [address] [place] [address] Care Team Providers Care Hand Expansion Envelope Maker Name Role Phone RON KYRA Primary Care [...] Patient's Relationship to Policy Ervin [facility] (WNR) MEDICARE ADVANTAGE [facility](W NR) * Aug 23, 2023 [id number] ANNALISA LOYD ITE PATIENT [facility] MCR (WNR) MEDICARE ADVANTAGE MCR (WNR) Aug 23, 2020 [id number] [phone] ANNALISA LOYD ITE PATIENT [facility] MCR (WNR) MEDICARE ADVANTAGE [facility](W NR) Aug 23, 2012 [id number] ANNALISA OLYD ITE PATIENT Selected Encounter This section includes the information on record at OR for the Encounter. Date/Time Encounter Type Encounter Description Reason Provider Source May 08, 2024 02:30 PM TELEHEALTH FACILITY FEE NUTRITION/DIETETI CS-INDIVIDUAL ICD-10-CM Z71.3 Dietary counseling and surveillance ADITI GARCIA E Encounter Template Text not used by OR Assessments - Encounter Diagnoses This section includes the primary and secondary diagnoses documented for the Encounter. Date/Time Primary/Secondary Diagnosis Diagnosis Name Provider Source May 09, 2024 09:16 AM PRIMARY Dietary [facility] Plan of Treatment: Future Appointments [...] 20 appointments. The data comes from all [facility]. Appointment Date/Time Appointment Type Appointme nt Facility Name May 16, 2024 10:00 AM AMBULATORY - SURGERY [facility] May 16, 2024 10:01 AM AMBULATORY - SURGERY [facility] May 19, 2024 08:00 AM AMBULATORY - NONE [facility] May 26, 2024 10:00 AM AMBULATORY - NONE [facility] Jun 15, 2024 09:00 AM AMBULATORY - NONE [place] [facility] Aug 29, 2024 10:30 AM AMBULATORY - NONE [place] [facility] Aug 29, 2024 11:15 AM AMBULATORY - SURGERY [facility] Active, Pending, and Scheduled Orders This section includes a listing of several types of active, pending, and scheduled orders, including clinic medications orders, diagnostic test orders, procedure orders and consult orders; where the start date of the order is 45 days before the date of the Encounter or 45 days after the date of theEncounter. The data comes from all [facility]. Test Date/Time Test Type Test Details Facility Name Apr 06, 2024 04:04 PM Consult Order COMMUNITY CARE-ALLERGY Cons Movable Bulkhead Installer's Choice [facility] May 03, 2024 12:00 AM Laboratory - Chemi stry Order URORISK DIAGNOSTIC PROFILE(Q) 24H RENAL STONE KIT 24H URINE SP [facility] May 17, 2024 02:27 PM Consult Order CAREGIVER SUPPORT PROGRAM OUTPT Cons Movable Bulkhead Installer's Choice [facility] May 19, 2024 12:44 PM Consult Order COMMUNITY CARE-PALLIATIVE CARE Cons Movable Bulkhead Installer[facility] Lab Results: +/- 30 [...] Range Comment May 04, 2024 10:32 AM [facility] UREA NITROGEN Specimen Type: PLASMA Comment: , Tests performed on Qingguo Lopes [id number]) Ordering Provider: DAVID FAM Report Released Date/Time: Nov 15, 2023 11:30 AM Reporting Lab: [facility] [address] [facility] [address] Performing Lab: [facility] [address] [facility] [address] UREA NITROGEN 10 mg/dL 03-16May 04, 2024 10:32 AM [facility] CRE[facility] WITH eGFR PANEL Specimen Type: PLASMA Comment: , Tests performed on Qingguo Lopes SN:[id number]) Ordering Provider: DAVID FAM Report Released Date/Time: Nov 15, 2023 11:30 AM Reporting Lab: [facility] [address] [facility] [address] Performing Lab: [facility] [address] [facility] [address] CREATININE 0.91 mg/dL 0.50-1.50 eGFR(CKD-EPI 2020) 86 Vital Signs: All taken on the encounter date This section contains inpatient and outpatient Vital Signs collected on the date of the Encounter. Date/Time Temperature Pulse Blood Pressure Respiratory Rate SP02 Pain Height Weight Body Mass Index Source May 08, 2024 02:31 PM 121.7 18 [facility] Social History: Smoking [...] May 14, 2022 09:30 AM VA-TOBACCO USE MARINE MECHANIC NO [facility] May 14, 2022 [...] December 28, 2018 11:23 AM VA-TOBACCO USE MARINE MECHANIC NO [facility] December 28, 2018 [...] Nov 18, 2017 ADVANCE DIRECTIVE REBECCARADHA S [facility] Jul 08, 2017 ADVANCE [...] CTA ABDOMEN AND PE LVIS: GALINA LOYD [id number] -1945 M Exm Date: MAY 04, 2024@12:30 Req Phys: VIMAL FAM Pat Loc: [facility] VASCULAR 15 M3RH (Req'g Lo Img Loc: CT SCAN (OOS) Service: [place] [address] (Case [id number] COMPLETE) CTA ABDOMEN AND PELVIS (CT Detailed) CPT:69603 Contrast Media : Non-ionic Iodinated Reason for [...] 05, 2024 Date Verified: MAY 05, 2024 Sanitation Officer E-Sig:/ES/NÉSTOR PASCUAL Report: CTA ABDOMEN AND PELVIS [...] REQUIRED Primary Interpreting Staff: NÉSTOR PASCUAL, RADIOLOGIST (Sanitation Officer) /NÉSTOR [facility] Encounter Notes: All associated encounter notes This section contains the clinical notes associated to the Encounter. Date/Time Encounter Note(s) Provider Source May 08, 2024 02:32 PM TELEHEALTH NOTE: LOCAL TITLE: Telehealth Regulatory Product Manager Note STANDARD TITLE: TELEHEALTH NOTE DATE OF NOTE: MAY 08, 2024@14:32 ENTRY DATE: MAY 08, 2024@14:32:19 AUTHOR: ADITI GARCIA COSIGNER: URGENCY: STATUS: COMPLETED [...] always have the option to drive to [place] to see the provider in person. They [...] through an in-person visit at the nearest OR clinical site offering the requested service, and the patient's right of refusal, at any time, for any Telehealth. Emergency contact information was obtained as follows: Current Location: [facility] Current Address: [address] [place] [address] County: [place] Emergency Contact Name: ADITI GARCIA Emergency Relationship: TCT Emergency Number: [phone] /es/ ADITI GARCIA Health Regulatory Product Manager Signed: 05/09/2024 09:16 ADITI GARCIA [facility]
--- OUTSIDE RECORDS SUMMARY | 2024-05-24 19:25 | XMS_ITS ---
Author Name Department of Vetera Affairs (ID) Organization Department of Vetera Affairs (ID) Address [address] [place] [address] Care Team Providers Care Maintenance Mechanic Elevators Name Role Phone RONKATHARINEKYRA Primary Care Provider [...] Ervin's Name Patient's Relationship to Policy Ervin [facility] (WNR) MEDICARE ADVANTAGE [facility](W NR) * Aug 23, 2023 [id number] ANNALISA LOYD ITE PATIENT [facility] (WNR) MEDICARE ADVANTAGE [facility] (WNR) Aug 23, 2020 [id number] [phone] ANNALISA LOYD ITE PATIENT [facility] (WNR) MEDICARE ADVANTAGE [facility](W NR) Aug 23, 2012 [id number] ANNALISA LOYD ITE PATIENT Selected Encounter This section includes the information on record at ID for the Encounter. Date/Time Encounter Type Encounter Description Reason Pro vider Source May 17, 2024 01:51 PM Outpatient Encounter TELEPHONE CASE MANAGEMENT IHE Encounter Template Text not used by VA Plan of Treatment: Future Appointments (+ 6 months) and Future Tests (+/- 45 days) The Plan of Treatment section includes future care activities for the [facility] This section includes future appointments and future orders which are active, pending or scheduled. Future Appointments This section includes appointments that were scheduled to occur 6 months from the date of the Encounter, up to a maximum of 20 appointments. The data comes from all ID treatment facilities. Appointment Date/Time Appointment Type Appointme nt Facility Name May 19, 2024 08:00 AM AMBULATORY - NONE [facility] [place] [facility] May 26, 2024 10:00 AM AMBULATORY - NONE [place] [facility] Jun 15, 2024 09:00 AM AMBULATORY - NONE [place] [facility] Aug 29, 2024 10:30 AM AMBULATORY - NONE [place] [facility] Aug 29, 2024 11:15 AM [...] of theEncounter. The data comes from all [facility]. Test Date/Time Test Type Test Details Facility Name Apr 06, 2024 04:04 PM Consult Order COMMUNITY CARE-ALLERGY [facility] May 03, 2024 12:00 AM Laboratory - Chemi stry Order URORISK DIAGNOSTIC PROFILE(Q) 24H RENAL STONE KIT 24H URINE SP [facility] May 17, 2024 02:27 PM Consult Order CAREGIVER SUPPORT PROGRAM OUTPT Cons [facility] Man[facility] May 19, 2024 12:44 PM Consult Order COMMUNITY CARE-PALLIATIVE CARE [facility] Lab Results: +/- 30 days of the encounter This section includes the Chemistry and Hematology Lab Results on record with ID for the patient. Radiology Reports and Pathology [...] Type: PLASMA Comment: , Tests performed on FortaTrust SN:[id number] ([id number]) Ordering Provider: DAVID FAM Report Released Date/Time: Nov 15, 2023 11:30 AM Reporting [facility] [address] [facility] [address] Performing Lab: [facility] [address] [facility] [address] UREA NITROGEN 10 mg/dL 7-May 04, 2024 10:32 AM [facility] CREATININE WITH eGFR PANEL Specimen Type: PLASMA Comment: , Tests performed on FortaTrust SN:[id number] ([id number]) Ordering Provider: DAVID FAM Report Released Date/Time: Nov 15, 2023 11:30 AM Reporting [facility] [address] [facility] [address] Performing Lab: [facility] [address] [facility] [address] CREATININE 0.91 mg/dL 0.50-1.50 eGFR(CKD-EPI 2020) 86 Social History: Smoking Status (Most current) and Tobacco Use (All prior to encounter date) This section includes the most current, and the historical, smoking and tobacco- related health factors from the ID facility where the Encounter took place. Current Smoking Status This section includes the most current smoking, or tobacco-related health factor, from the ID facility where the Encounter took place. Date/Time Current Smoking Status Comment Nataly ity Feb 21, 2024 10:15 AM VA-TOBACCO USER EVERY DAY [facility] Tobacco Use History This section includes a history of the smoking, or tobacco-related health factors, that were collected on or before the date of the Encounter. The data comes from the ID facility where the Encounter took place. 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 The entries below indicate that a directive exists for the patient, but an actual copy is not included with this document. The data comes from all ID facilities. Date Advance Directives Provider Source Nov [...] the Encounter. The data comes from all ID treatment facilities. Date/Time Radiology Report Provider Source May 04, 2024 12:30 PM CTA ABDOMEN AND PE LVIS: GALINA LOYD [id number] -1945 M Exm Date: MAY 04, 2024@12:30 Req Phys: VIMAL FAM Pat Loc: [facility] VASCULAR 15 M3RH (Req'g Lo Img Loc: CT SCAN (OOS) Service: Unknown [facility] [address] (Case [id number] COMPLETE) CTA ABDOMEN AND PELVIS (CT Detailed) CPT:25232 Contrast Media : Non-ionic Iodinated Reason for [...] 05, 2024 Date Verified: MAY 05, 2024 Flying Ii Instructor E-Sig:/ES/NÉSTOR PASCUAL Report: CTA ABDOMEN AND PELVIS [...] REQUIRED Primary Interpreting Staff: NÉSTOR PASCUAL, RADIOLOGIST (Flying Ii Instructor) /NÉSTOR [facility] Encounter Notes: All associated encounter notes This section contains the clinical notes associated to the Encounter. Date/Time Encounter Note(s) Provider Source May 17, 2024 01:53 PM FILER METAL PATTERNS NOTE: LOCAL TITLE: Case Management Assessment STANDARD TITLE: FILER METAL PATTERNS NOTE DATE OF NOTE: MAY 17, 2024@13:53 ENTRY DATE: MAY 17, 2024@13:53:12 AUTHOR: DAMARIS COCHRAN EXP COSIGNER: URGENCY: STATUS: COMPLETED PERSONAL CARE SERVICES CASE MANAGEMENT ASSESSMENT FOR HOMEMAKER/HOME HEALTH AND RESPITE [X] Initial Assessment [ ] Change in Status [ ] Annual Assessment Age: 78 Period of Service: [place] Branch of Service: Service - NONE FOUND Eligibility: PRIMARY ELIGIBILTY CODE - SERVICE CONNECTED 50% to 100% SERVICE CONNECTED % - 100 Is enrolled in any of the following programs: [ ] VDC [ ] [facility] [ ] CSP Last PCP Visit: Mar Notes: 78-year-old with history of CVA, s/p rehabilitation stay following a fx hip. 's spouse has been primary caregiver for [place] who is beginning to have difficulties assisting [place] with certain ADL's. [place] and his spouse are aware that they need ADL assistance to keep in his home safely. does have some cognitive impairment following his CVA, which at times make the difficult and argumentative. PERSONAL CARE SERVICES CASE MIX TOOL COMPLETED [X]YES [ ]NO DETERMINATION OF PATIENT APPROPRIATENESS FOR PCS: [facility] Handbook 1140.6 Purchased-Home Health Care Services Procedures governs the H/RECORDING STUDIO SETUP WORKER program and identifies clinical criteria for admission to all PCS. Home health aide services are the backbone of H/RECORDING STUDIO SETUP WORKER, with focus on assisting Veterans with ADL impairments. Homemaker services are supplemental to the provision of home health aide services. Authorizations solely for homemaker services should be made in extraordinary circumstances and by exception only. Respite eligibility per [facility] Handbook 1140.02: a. The has a diagnosed chronic disabling illness or condition. b. The lives at home and requires substantial assistance in ADL in order to continue to reside safely in the home. c. The veterans caregiver is in need of temporary or intermittent relief from day to day care tasks in order to sustain this care-giving role. d. The must meet clinical criteria, as well as eligibility criteria for long-term and long-term care. Eligibility and Determinations of Need for ID Home Health Care Services per [facility] Handbook 1140.6 (1) Through an interdisciplinary assessment, the [place] has been determined to have the following clinical conditions: [X](a) Three or more activity of daily living (ADL) dependencies in the areas of: DRESSING, GROOMING, BATHING, EATING, AMBULATION, TRANSFERS, TOILETING, or [ ](b) Significant cognitive impairment, or [ ](c) Require H/RECORDING STUDIO SETUP WORKER services as adjunct care to community hospice services, or [ ](d) Two ADL dependencies, and two or more of the following conditions: [X] 1. Has dependency in three or more instrumental activities of daily living (IADLs): [ ] Housekeeping [X] Shopping [X] Laundering [X] Meal Preparation [X] Transportation [ ] Medications [ ] Telephone [X] Managing finances [X] 2. Has been recently discharged from a nursing facility, or has an upcoming long-term discharge plan contingent on receipt of home and community based care services [X] 3. Is seventy-five years of age or older [ ] 4. Has had high use of medical services defined as three or more hospitalizations in the past year or has utilized outpatient clinics or emergency evaluation units twelve or more times in the past year [ ] 5. Has been diagnosed with clinical depression [ ] 6. Lives alone in the community Case Mix Levels First Range of Hours/Week Second Range of Hours/Week* L 3-6 *Any for whom the VA A, B, C 7-9 as financial responsibility D, E, F 10-11 for their long-term care G, H, I 11-13 must be considered under the J, K 14-16 Second Range of Hours/Week for PCS. Note: a day of [facility] counts as 5 hours of PCS Total number of hours may encompass H/RECORDING STUDIO SETUP WORKER, Home Respite and/or [facility] [X] eligible for services [ ] [place] not eligible for services at this time [ ] Other: (provide reason for exception, etc.) Case Mix E Hours/Week Authorized 10 Referrals to be made: [X]H/RECORDING STUDIO SETUP WORKER [ ]Home Respite [ ]Other: (Referral for services pending confirmation of available community resources) Other recommendations (skilled VNA, PT/OT consult, Palliative or Hospice): [X] This assessment reviewed and agreed with by PCP as added co-signer to this note. [ ] SW alerted to review with /caregiver available VA programs or other eligibilities and/or provide community resources [X] Other: CSP referral to be made. PCP/PACT SW/Consult originator /vivian/ DAMARIS COCHRAN Signed: 05/17/2024 14:05 Receipt Acknowledged By: 05/18/2024 08:01 /vivian/ KYRA VELASQUEZ M.D INTERNAL MEDICINE, [facility] DAMARIS COCHRAN [facility]
--- OUTSIDE RECORDS SUMMARY | 2024-05-24 19:25 | XMS_ITS | Encounter Summary ---
Author Name [place] Organization [place] Address [address] [place] [address] Care Team Providers Care Echocardiography Radiology Technologist Name Role Phone RON KYRA Primary Care [...] Ervin's Name Patient's Relationship to Policy Ervin [facility] (WNR) MEDICARE ADVANTAGE [facility](W NR) * Aug 23, 2023 [id number] ANNALISA LOYD ITE PATIENT [facility] MCR (WNR) MEDICARE ADVANTAGE MCR (WNR) Aug 23, 2020 [id number] [phone] ANNALISA LOYD ITE PATIENT [facility] MCR (WNR) MEDICARE ADVANTAGE [facility](W NR) Aug 23, 2012 [id number] ANNALISA LOYD ITE PATIENT Selected Encounter This section includes the information on record at [place] for the Encounter. Date/Time Encounter Type Encounter Description Reason Provider Source May 16, 2024 10:00 AM TELEHEALTH FACILITY FEE WOUND TREAT & OSTOMY CARE ICD-10-CM L89.893 Pressure ulcer of other site, stage 3 ADITI GARCIA Jannette Encounter Template Text not used by [place] Assessments - Encounter Diagnoses This section includes the primary and secondary diagnoses documented for the Encounter. Date/Time Primary/Secondary Diagnosis Diagnosis Name Provider Source May 17, 2024 08:25 AM PRIMARY Pressure ulcer of other site, stage 3 [facility] Plan of Treatment: Future Appointments (+ [...] - NONE [place] [facility] May 26, 2024 10:00 AM AMBULATORY - NONE [place] [facility] Jun 15, 2024 09:00 AM AMBULATORY - NONE [place] [facility] Aug 29, 2024 10:30 AM AMBULATORY - NONE [place] [facility] Aug 29, 2024 11:15 AM AMBULATORY [...] 04:04 PM Consult Order COMMUNITY CARE-ALLERGY Cons Paralegal Legal Secretary's Choice [facility] May 03, 2024 12:00 AM Laboratory - Chemi stry Order URORISK DIAGNOSTIC PROFILE(Q) 24H RENAL STONE KIT 24H URINE SP [facility] May 17, 2024 02:27 PM Consult Order CAREGIVER SUPPORT PROGRAM OUTPT Cons Paralegal Legal Secretary's Choice [facility] May 19, 2024 12:44 PM Consult Order COMMUNITY CARE-PALLIATIVE CARE Cons Paralegal Legal Secretary's Choice [facility] Lab Results: +/- 30 days of the encounter This section includes the Chemistry and Hematology Lab Results on record with [place] for the patient. Radiology Reports and Pathology [...] Type: PLASMA Comment: , Tests performed on [employer] [id number] ([id number]) Ordering Provider: DAVID FAM Report Released Date/Time: Nov 15, 2023 11:30 AM Reporting Lab: [facility] [address] [facility] [address] Performing Lab: [facility] [address] [facility] [address] UREA NITROGEN 10 mg/dL 03-16May 04, 2024 10:32 AM [facility] CREATININE WITH eGFR PANEL Specimen Type: PLASMA Comment: , Tests performed on [employer] SN:[id number] ([id number]) Ordering Provider: DAVID FAM Report Released Date/Time: Nov 15, 2023 11:30 AM Reporting Lab: [facility] [address] [facility] [address] Performing Lab: [facility] [address] [facility] [address] CREATININE 0.91 mg/dL 0.50-1.50 eGFR(CKD-EPI 2020) 86 [...] place. Date/Time Current Smoking Status Comment Nataly schaeffer May 14, 2022 09:30 AM VA-TOBACCO USE [place] 30 MIN OF WAKE UP [facility] Tobacco Use History This section includes a history of the smoking, or tobacco-related health factors, that were collected on or before the date of the Encounter. The data comes from the [place] facility where the Encounter took place. Date/Time Smoking Status/Tobacco Use Comment F acility May 14, 2022 09:30 AM VA-TOBACCO USE ADVICE [facility] May 14, 2022 09:30 AM VA-TOBACCO USE LIFE TEACHER NO [facility] May 14, 2022 09:30 AM VA-TOBACCO USE MED NO [facility] May 14, 2022 09:30 AM VA-TOBACCO USE WI 30 MIN OF WAKE UP [facility] May 14, 2022 09:30 AM VA-TOBACCO USER EVERY DAY [facility] Jun 27, 2020 09:30 AM VA-TOBACCO FORMER USER [facility] Jun 27, 2020 09:30 AM VA-TOBACCO QUIT < 1 YEAR [facility] December 28, 2018 11:23 AM VA-TOBACCO USE 30 YEARS OR MORE [facility] December 28, 2018 11:23 AM VA-TOBACCO USE ADVICE [facility] December 28, 2018 11:23 AM VA-TOBACCO USE LIFE TEACHER NO [facility] December 28, 2018 11:23 AM VA-TOBACCO USE MED NO [facility] December 28, 2018 11:23 AM VA-TOBACCO USE WI 30 MIN OF WAKE UP [facility] December 28, 2018 11:23 AM VA-TOBACCO USER EVERY DAY [facility] Aug 10, 2016 09:05 AM CURRENT SMOKER [facility] Aug 10, 2016 09:05 AM V1-PT [...] 2017 ADVANCE DIRECTIVE RADHA FERNANDEZ [facility] Jul 08, 2017 ADVANCE DIRECTIVE DISCUSSION PURNIMA ROJAS [facility] Radiology Reports: +/- 30 days of [...] CTA ABDOMEN AND PE LVIS: GALINA LOYD [id number] -1945 M Exm Date: MAY 04, 2024@12:30 Req Phys: VIMAL FAM Loc: [facility] VASCULAR 15 M3RH (Req'g Lo Img Loc: CT SCAN (OOS) Service: Unknown [facility] [address] (Case [id number] COMPLETE) CTA ABDOMEN AND PELVIS (CT Detailed) CPT:60743 Contrast Media : Non-ionic Iodinated Reason for [...] 05, 2024 Date Verified: MAY 05, 2024 Drilling Field Specialist E-Sig:/ES/NÉSTOR PASCUAL Report: CTA ABDOMEN AND [...] REQUIRED Primary Interpreting Staff: NÉSTOR PASCUAL, RADIOLOGIST (Drilling Field Specialist) /NÉSTOR CONNER [facility] Encounter Notes: All associated encounter notes This section contains the clinical notes associated to the Encounter. Date/Time Encounter Note(s) Provider Source May 17, 2024 08:23 AM TELEHEALTH NOTE: LOCAL TITLE: Telehealth Animal Care Supervisor Note STANDARD TITLE: TELEHEALTH NOTE DATE OF NOTE: MAY 17, 2024@08:23 ENTRY DATE: MAY 17, 2024@08:23:39 AUTHOR: ADITI GARCIA COSIGNER: URGENCY: STATUS: COMPLETED [...] always have the option to drive to [place] to see the provider in person. They [...] through an in-person visit at the nearest [place] clinical site offering the requested service, and the patient's right of refusal, at any time, for any Telehealth. Emergency contact information was obtained as follows: Current Location: [facility] Current Address: [address] [place] [address] County: [place] Emergency Contact Name: KYRA DEGROOT Emergency Relationship: RN Emergency Number: [phone] /es/ ADITI GARCIA Health Animal Care Supervisor Signed: 05/17/2024 08:25 [facility]
--- OUTSIDE RECORDS SUMMARY | 2024-05-24 19:26 | XMS_ITS ---
Author Name [place] Address [address] [place] [address] Care Team Providers Care Landscape Architect And Planner Name Role Phone KYRA VELASQUEZ Primary Care [...] Ervin's Name Patient's Relationship to Policy Ervin [facility] (WNR) MEDICARE ADVANTAGE MCR(W NR) * Aug 23, 2023 [id number] ANNALISA LOYD ITE PATIENT [facility] (WNR) MEDICARE ADVANTAGE [facility] (WNR) Aug 23, 2020 [id number] [phone] ANNALISA LOYD ITE PATIENT [facility] (WNR) MEDICARE ADVANTAGE MCR(W NR) Aug 23, 2012 [id number] ANNALISA LOYD ITE PATIENT Selected Encounter This section includes the information on record at [place] for the Encounter. Date/Time Encounter Type Encounter Description Reason Pro vider Source May 19, 2024 10:47 AM Outpatient Encounter ADMIN PAT ACTIVTIES (MASNONCT) IHE Encounter Template Text not used by [place] Plan of Treatment: Future Appointments (+ 6 [...] Appointment Type Appointme nt Facility Name May 26, 2024 10:00 AM AMBULATORY - NONE [place] [facility] Jun 15, 2024 09:00 AM AMBULATORY - NONE [place] [facility] Aug 29, 2024 10:30 AM AMBULATORY - NONE [place] [facility] Aug 29, 2024 11:15 AM AMBULATORY - SURGERY [facility] Active, Pending, and Scheduled [...] 04:04 PM Consult Order COMMUNITY CARE-ALLERGY Cons Logistics Specialist's [facility] May 03, 2024 12:00 AM Laboratory - Chemi stry Order URORISK DIAGNOSTIC PROFILE(Q) 24H RENAL STONE KIT 24H URINE SP [facility] May 17, 2024 02:27 PM Consult Order CAREGIVER SUPPORT PROGRAM OUTPT Cons Logistics Specialist's [facility] May 19, 2024 12:44 PM Consult Order COMMUNITY CARE-PALLIATIVE CARE Cons Logistics Specialist's [facility] Lab Results: +/- 30 days of [...] PLASMA Comment: , Tests performed on [place] [employer] Wheel Alignment Specialist Lopes SN:[id number] (405) Ordering Provider: DAVID FAM Report Released Date/Time: Nov 15, 2023 11:30 AM Reporting Lab: [facility] [address] [facility] [address] Performing Lab: [facility] [address] [facility] [address] UREA NITROGEN 10 mg/dL 7-25 May 04, 2024 10:32 AM [facility] CREATININE WITH eGFR PANEL Specimen Type: PLASMA Comment: , Tests performed on [place] [employer] Lopes SN:[id number] (405) Ordering Provider: DAVID FAM Report Released Date/Time: Nov 15, 2023 11:30 AM Reporting Lab: [facility] [address] [facility] [address] Performing Lab: [facility] [address] [facility] [address] CREATININE 0.91 mg/dL 0.50-1.50 eGFR(CKD-EPI 2020) 86 [...] USER EVERY DAY [facility] Tobacco Use History [...] Feb 21, 2024 10:15 AM VA-TOBACCO USE 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 NO [facility] Feb 21, 2024 10:15 AM VA-TOBACCO USE MED NO [facility] Feb 21, 2024 10:15 AM VA-TOBACCO USE WI 30 MIN OF WAKEUP [facility] Feb 21, 2024 10:15 AM VA-TOBACCO USER EVERY DAY [facility] Jul 17, 2021 02:27 PM CURRENT SMOKER REINIER GAYLE [facility] Jul 01, 2021 08:55 PM VA-VAAES TOBACCO U SE CURRENT NRT DECLINE [facility] Jul 01, 2021 02:41 PM CURRENT SMOKER REINIER GAYLE [facility] Dec 08, 2020 08:45 PM VA-TOBACCO [...] 12:30 PM CTA ABDOMEN AND PE LVIS: EVERTGALINA CARISA [id number] -1945 M Exm Date: MAY 04, 2024@12:30 Req Phys: VIMAL FAM Ivonne Loc: [facility] VASCULAR 15 M3RH (Req'g Lo Img Loc: CT SCAN (OOS) Service: [facility] [address] (Case [id number] COMPLETE) CTA ABDOMEN AND PELVIS (CT Detailed) CPT:89347 Contrast Media : Non-ionic Iodinated Reason for [...] 05, 2024 Date Verified: MAY 05, 2024 Alkylation Operator E-Sig:/ES/NÉSTOR PASCUAL Report: CTA ABDOMEN AND PELVIS [...] REQUIRED Primary Interpreting Staff: NÉSTOR PASCUAL, RADIOLOGIST (Alkylation Operator) /NÉSTOR CONNER [facility] Encounter Notes: All associated encounter notes This section contains the clinical notes associated to the Encounter. Date/Time Encounter Note(s) Provider Source May 19, 2024 10:47 AM ADMINISTRATIVE NOT E: LOCAL TITLE: CCC: SCHEDULING ADMINISTRATION STANDARD TITLE: ADMINISTRATIVE NOTE DATE OF NOTE: MAY 19, 2024@10:47:16 ENTRY DATE: MAY 19, 2024@10:47:17 AUTHOR: KESHAWN KINGSLEY EXP COSIGNER: URGENCY: STATUS: COMPLETED Patient Demographics Patient Name: GALINA LOYD JR Patient Primary Phone: [phone] Patient Primary Address: [address] [place] [address] Patient : 1945 Patient Age: 78 Caller/Recipient Relation to Patient: Other If Other Describe Relation to Patient: [facility] Caller Name: Eileen Administrative Administrative Note Reason: Home Health / [place] Administrative Note Comments: Eileen requesting a referral for palliative care for [facility] in [facility]. Eileen can be reached at [phone] [phone]. IMPORTANT: This note was created by [facility] Clinical Contact Center staff. Please do not alert the staff member by adding them as a signer for future communications. Alerts are not monitored by this user. /vivian/ KESHAWN KINGSLEY Clinical Contact Center AMSA Signed: 05/19/2024 10:47 Receipt Acknowledged By: 05/19/2024 15:10 /vivian/ EFRAÍN VALIENTE for OJ Curtis PETTIGLIO 05/19/2024 12:44 /es/ KYRA VELASQUEZ M.D INTERNAL MEDICINE, [facility] KESHAWN KINGSLEY [facility]
--- OUTSIDE RECORDS SUMMARY | 2024-05-24 19:26 | XMS_ITS | Encounter Summary ---
Author Name Department [place] Organization [place] Address [address] [place] [address] Care Team Providers Care Family Advocate Name Role Phone KYRA VELASQUEZ Primary Care [...] Policy Ervin [facility] (WNR) MEDICARE ADVANTAGE [facility](W NR) * Aug 23, 2023 [id number] [phone] ANNALISA LOYD ITE PATIENT [facility] MCR (WNR) MEDICARE ADVANTAGE [facility] (WNR) Aug 23, 2020 [id number] [phone] ANNALISA LOYD ITE PATIENT [facility] (WNR) MEDICARE ADVANTAGE [facility](W NR) Aug 23, 2012 [id number] ANNALISA LOYD ITE PATIENT Selected Encounter This section includes the information on record at [place] for the Encounter. Date/Time Encounter Type Encounter Description Reason Provider Source Dec 16, 2023 04:26 PM POSTOP FOLLOW-UP VISIT ANESTHESIA PRE/POST-OP CONSULT ICD-10-CM Z48.89 Encounter for other specified surgical aftercare MELISSA JAVIER Jannette Encounter Template Text not used by [place] Assessments - Encounter Diagnoses This section includes the primary and secondary diagnoses documented for the Encounter. Date/Time Primary/Secondary Diagnosis Diagnosis Name Provider Source May 22, 2024 09:31 AM PRIMARY Encounter for other specified surgical aftercare MELISSA JAVIER [facility] Plan of Treatment: Future Appointments [...] PM AMBULATORY - [place] [facility] Feb 21, 2024 10:15 AM AMBULATORY - NONE [place] [facility] Feb 21, 2024 11:00 AM AMBULATORY - NONE [place] [facility] Mar 18, 2024 12:01 AM AMBULATORY - NONE [place] [facility] Apr 06, 2024 01:00 PM AMBULATORY - NONE [place] [facility] Apr 06, 2024 01:00 PM AMBULATORY - MEDICINE [facility] Apr 10, 2024 01:30 PM AMBULATORY - MEDICINE [facility] Apr 10, 2024 01:31 PM AMBULATORY - NONE [place] [facility] Apr 11, 2024 10:00 AM AMBULATORY - SURGERY [facility] Apr 11, 2024 10:01 AM AMBUL[place]ORY - [place]GERY [place] [facility] Apr 21, 2024 10:30 AM AMBULATORY - NONE [place] [facility] May 03, 2024 02:30 PM AMBULATORY - [place] [facility] May 04, 2024 10:30 AM AMBULATORY - MEDICINE [place] Jannette [place] [facility] May 04, 2024 11:00 AM AMBULATORY - [place]GERY [place] [facility] May 04, 2024 12:30 PM AMBULATORY - NONE [place] [facility] May 04, 2024 01:00 PM AMBULATORY - SURGERY SONYA GAYLE [facility] May 08, 2024 02:30 PM AMBULATORY - [facility]ICINE [facility] May 08, 2024 02:31 PM AMBULATORY - NONE SONYA LAI [facility] May 16, 2024 10:00 AM AMBULATORY - SUR[facility] May 16, 2024 10:01 AM AMBULATORY - SURGERY [place] NALINI [facility] Active, Pending, and Scheduled Orders This section includes a listing of several types of active, pending, and scheduled orders, including clinic medications orders, diagnostic test orders, procedure orders and consult orders; where the start date of the order is 45 days before the date of the Encounter or 45 days after the date of theEncounter. The data comes from all [place] treatment facilities. Test Date/Time Test Type Test Details Facility Name January 18, 2024 12:13 PM Consult Order COMMUNITY CARE-NEUROLOGY Cons Order Processing Manager's Choice [facility] Lab Results: +/- 30 days of the encounter This section includes the Chemistry and Hematology Lab Results on record with [place] for the patient. Radiology Reports and Pathology [...] Nov 24, 2023 05:48 PM Reporting Lab: [facility] [address] [facility] [address] Performing Lab: [facility] [address] [facility] [address] URINE COLOR Light-Stevenson NOT DEFINED SPECIFIC GRAVITY 1.013 1.003-1.030 UROBILINOGEN [...] 136/84 20 96 0 69 122.3 18 [facility] Social History: Smoking Status (Most current) [...] this document. The data comes from all [place] facilities. Date Advance Directives Provider Source Nov 18, 2017 ADVANCE DIRECTIVE FERNANDEZRADHA [facility] Jul 08, 2017 ADVANCE DIRECTIVE DISCUSSION ROJASPURNIMA Jannette [facility] Radiology Reports: +/- [...] 11:15 AM UROGRAM RETROGRADE : GALINA LOYD [id number] -1945 M Exm Date: DEC 16, 2023@11:15 Req Phys: CORBY OSORIO Pat Loc: [facility] SD SHAWN GENERAL G2RD (Req'g Img Loc: XRAY (OOS) Service: Unknown [facility] [address] (Case [id number] COMPLETE) UROGRAM RETROGRADE (RAD Detailed) CPT:87904 Contrast Media : Non-ionic Iodinated Proc Modifiers : OPERATING ROOM EXAM Reason for Study: bilat ureteroscopy laser litho, stent placement Clinical History: calculus of kidney Report Status: Verified Date Reported: DEC 16, 2023 Date Verified: DEC 16, 2023 Motor Expert E-Sig:/VIVIAN/BENJAMÍN PIMENTEL Report: UROGRAM RETROGRADE 12/16/2023 11:15 AM Impression: Fluoroscopy performed during urology service procedure. FINDINGS: Procedure performed with the C-arm fluoroscopy . Fluoroscopy time 55 seconds, dose 9 mGy Fluoroscopic images consistent with history of bilateral ureteroscopy and stent placement. Labels from bilateral [employer] Contour double-J ureteral stents placed on the scanned worksheet Please see procedure note for further details. HISTORY: bilat ureteroscopy laser litho, stent placement, Primary Diagnostic Code: NO IMMEDIATE ATTENTION REQUIRED Primary Interpreting Staff: BENJAMÍN PIMENTEL, Staff Physician (Motor Expert) /BENJAMÍN HYLTON [facility] Pathology Reports: +/- 30 days of [...] the Encounter. The data comes from all [facility] facilities. Date/Time Pathology Report Provider Source Nov 29, 2023 11:27 AM LR MICROBIOLOGY RE PORT: Reporting Lab: [facility] [CLIA# [id number]] [address] [place] [address] Accession [UID]: [id number] [[id number]] Received: Nov 30, 2023@19:53 Collection sample: URINE CLEAN CATCH Collection date: Nov 29, 2023 11:27 Site/Specimen: URINE Provider: CORBY OSORIO Test(s) ordered: CULTURE,URINE CLEAN CATCH..... completed: Dec 02, 2023 13:00 * BACTERIOLOGY FINAL REPORT => Dec 02, 2023 13:01 TECH CODE: [id number] Bacteriology Remark(s): 12/02/23 50,000-99,000 CFU/mL AT LEAST THREE BACTERIAL TYPES PRESENT INDICATING POSSIBLE CONTAMINATION, PLEASE REPEAT COLLECTION. =--=--=--=--=--=--=--=--=--=--= --=--=--=--=--=--=--=--=--=--=- -=--=--=--=--=-- Performing Laboratory: Bacteriology Report Performed By: SONYA [facility] [CLIA# [id number]] [address] [place] [address] [facility] Encounter Notes: All associated encounter notes This section contains the clinical notes associated to the Encounter. Date/Time Encounter Note(s) Provider Source Dec 16, 2023 04:40 PM ANESTHESIOLOGY POS T OPERATIVE E & M NOTE: LOCAL TITLE: Post OP Note/Anesthesia STANDARD TITLE: ANESTHESIOLOGY POST OPERATIVE E & M NOTE DATE OF NOTE: DEC 16, 2023@16:40 ENTRY DATE: MAY 22, 2024@09:30:21 AUTHOR: MELISSA JAVIER COSIGNER: URGENCY: STATUS: COMPLETED Post-anesthesia evaluation: Vitals: For post-op vital, see [facility] PACU note record. Patient was evaluated post-anesthesia after phase 2 recovery was met. Recall: No Adequate pain control: Yes PONV: No Postoperative hydration: Adequate Satisfied with anesthetic care: Yes Concerns: No Questions (if any) answered: Yes /vivian/ MELISSA JAVIER Anesthesiology Signed: 05/22/2024 09:31 MELISSA JAVIER [facility]
--- OUTSIDE RECORDS SUMMARY | 2024-05-24 19:26 | XMS_ITS | Encounter Summary ---
Author Name [facility] [place] Organization [facility] [place] Address [address] [place] [address] Care Team Providers Care Sales Closer Name Role Phone KYRA VELASQUEZ Primary Care [...] Ervin's Name Patient's Relationship to Policy Ervin [facility] (WNR) MEDICARE [facility](W NR) * Aug 23, 2023 [id number] ANNALISA LOYD ITE PATIENT [facility] (WNR) MEDICARE ADVANTAGE [facility] (WNR) Aug 23, 2020 [id number] [phone] ANNALISA LOYD ITE PATIENT [facility] (WNR) MEDICARE [facility](W NR) Aug 23, 2012 [id number] ANNALISA LOYD ITE PATIENT Selected Encounter This section includes the information on record at [place] for the Encounter. Date/Time Encounter Type Encounter Description Reason Provider Source Dec 16, 2023 02:26 PM OFFICE O/P EST SF 10 MIN ANESTHESIA PRE/POST-OP CONSULT ICD-10-CM Z01.818 Encounter for other preprocedural examination MELISSA JAVIER JESÚSJannette Encounter Template Text not used by [place] Assessments - Encounter Diagnoses This section includes the primary and secondary diagnoses documented for the Encounter. Date/Time Primary/Secondary Diagnosis Diagnosis Name Provider Source May 22, 2024 09:29 AM PRIMARY Encounter for other preprocedural examination MELISSA JAVIER [facility] May 22, 2024 09:29 AM SECONDARY Abdominal aortic aneurysm, without rupture, unspecified MELISSA JAVIER T [facility] May 22, 2024 09:29 AM SECONDARY Calculus of kidney MELISSA JAVIER [facility] May 22, 2024 09:29 AM SECONDARY Essential (primary) hypertension MELISSA JAVIER [facility] Plan of Treatment: Future Appointments (+ 6 months) and Future Tests (+/- 45 days) The Plan of Treatment section includes future care activities for the patient from all [place] [facility] This section includes future appointments and future [...] 06, 2024 01:00 PM AMBULATORY - [facility]INE [facility] Apr 10, 2024 01:30 PM [...] 02:30 PM AMBULATORY - SURGERY SONYA GAYLE T [facility] May 04, 2024 10:30 AM AMBULATORY - MEDICINE REINIER GAYLE T [facility] May 04, 2024 11:00 AM AMBULATORY - SURGERY SONYA GAYLE T [facility] May 04, 2024 12:30 PM AMBULATORY - NONE WHITE OCTAVIA LAI T [facility] May 04, 2024 01:00 PM AMBULATORY - SURGERY SONYA GAYLE T [facility] May 08, 2024 02:30 PM AMBULATORY - MEDICINE 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[employer] Manager's Choice LE CLAIRE NALINI [facility] Lab Results: +/- 30 days of [...] PM Reporting Lab: [facility] [address] [facility] [address] Performing Lab: [facility] [address] [facility] [address] URINE COLOR Light-Milan NOT DEFINED SPECIFIC GRAVITY 1.013 1.003-1.030 UROBILINOGEN [...] 11:15 AM UROGRAM RETROGRADE : GALINA LOYD [id number] -1945 M Ex Date: DEC 16, 2023@11:15 Req Phys: CORBY OSORIO Pat Loc: [facility] GENERAL G2RD (Req'g Img Loc: XRAY (OOS) Service: Unknown [facility] [address] (Case [id number] COMPLETE) UROGRAM RETROGRADE (RAD Detailed) CPT:96609 Contrast Media : Non-ionic Iodinated Proc Modifiers : OPERATING ROOM EXAM Reason for Study: bilat ureteroscopy laser litho, stent placement Clinical History: calculus of kidney Report Status: Verified Date Reported: DEC 16, 2023 Date Verified: DEC 16, 2023 Stationary Engineer Apprentice E-Sig:/ES/BENJAMÍN PIMENTEL Report: UROGRAM RETROGRADE 12/16/2023 11:15 AM Impression: Fluoroscopy performed during urology service procedure. FINDINGS: Procedure performed with the C-arm fluoroscopy . Fluoroscopy time 55 seconds, dose 9 mGy Fluoroscopic images consistent with history of bilateral ureteroscopy and stent placement. Labels from bilateral [employer] Contour double-J ureteral stents placed on the scanned worksheet Please see procedure note for further details. HISTORY: bilat ureteroscopy laser litho, stent placement, Primary Diagnostic Code: NO IMMEDIATE ATTENTION REQUIRED Primary Interpreting Staff: BENJAMÍN PIMENTEL, Staff Physician (Stationary Engineer Apprentice) /BENJAMÍN HYLTON [facility] Pathology Reports: +/- [...] the Encounter. The data comes from all [facility] facilities. Date/Time Pathology Report Provider Source Nov 29, 2023 11:27 AM LR MICROBIOLOGY RE PORT: Reporting Lab: [facility] [CLIA# [id number]] [address] [place] [address] Accession [UID]: [id number] [[id number]] Received: Nov 30, 2023@19:53 Collection sample: URINE CLEAN CATCH Collection date: Nov 29, 2023 11:27 Site/Specimen: URINE Provider: CORBY OSORIO Test(s) ordered: CULTURE,URINE CLEAN CATCH..... completed: Dec 02, 2023 13:00 * BACTERIOLOGY FINAL REPORT => Dec 02, 2023 13:01 TECH CODE: [id number] Bacteriology Remark(s): 12/02/23 50,000-99,000 CFU/mL AT LEAST THREE BACTERIAL TYPES PRESENT INDICATING POSSIBLE CONTAMINATION, PLEASE REPEAT COLLECTION. =--=--=--=--=--=--=--=--=--=--= --=--=--=--=--=--=--=--=--=--=- -=--=--=--=--=-- Performing Laboratory: Bacteriology Report Performed By: SONYA [facility] [CLIA# [id number]] [address] [place] [address] [facility] Encounter Notes: All associated encounter notes This section contains the clinical notes associated to the Encounter. Date/Time Encounter Note(s) Provider Source Dec 16, 2023 03:28 PM ANESTHESIOLOGY NOT E: LOCAL TITLE: Anesthesia Pre-Induction Note STANDARD TITLE: ANESTHESIOLOGY NOTE DATE OF NOTE: DEC 16, 2023@15:28 ENTRY DATE: MAY 22, 2024@09:28:33 AUTHOR: MELISSA JAVIER COSIGNER: URGENCY: STATUS: COMPLETED I have examined the patient on the date of procedure, and have reviewed and agreed with the anesthesia preop evaluation, documented in CPRS. The patient was interviewed and examined. The patient was alert, oriented and not in acute distress. Reviewed drug allergy history and prior anesthetics with the patient. Risk, benefits, assessment, anesthetic options and plan for this procedure were discussed with the patient. Questions, if any, were answered. Post-operative pain management was discussed. NPO status was addressed. Allergies are noted in CPRS. Past medical history documented in Pre Op note in CPRS. Consent obtained by proceduralist. PMH significant for anesthetic plan: HTN, AAA Vitals: B/P PULSE WEIGHT BMI SpO2 PAIN 130/72 78 121.7 18.0 98 0 Airway: MP: 2 TMD: > 3FB ROM: Full Dentition: none loose Lungs: CTAB Heart: RRR Other: ASA status: 3 Code status: Full code The anesthesia plan: GA The patient transferred to the procedure location. Reevaluated immediately prior to induction & start of the case. Fit for anesthesia. Present for all critical events. I was available during the case. Total time spent: 15 minutes of this visit was spent in chart review, physical exam, assessment and anesthetic plan discussion, with the patient, as detailed above. /vivian/ MELISSA JAVIER Anesthesiology Signed: 05/22/2024 09:29 MELISSA JAVIER [facility]
--- OUTSIDE RECORDS SUMMARY | 2024-05-24 19:26 | XMS_ITS | Encounter Summary ---
Author Name [facility] [place] Organization [place] Address [address] [place] [address] Care Team Providers Care Hostess Cashier Name Role Phone KYRA VELASQUEZ Primary Care [...] Ervin's Name Patient's Relationship to Policy Ervin [facility] (WNR) MEDICARE ADVANTAGE [facility](W NR) * Aug 23, 2023 [id number] ANNALISA LOYD ITE PATIENT [facility] (WNR) MEDICARE ADVANTAGE [facility] (WNR) Aug 23, 2020 [id number] [phone] ANNALISA LOYD ITE PATIENT [facility] (WNR) MEDICARE [facility](W NR) Aug 23, 2012 [id number] [phone] ANNALISA LOYD ITE PATIENT Selected Encounter This section includes the information on record at [place] for the Encounter. Date/Time Encounter Type Encounter Description Reason Pro vider Source May 23, 2024 08:30 AM Outpatient Encounter ADMIN PAT ACTIVTIES (MASNONCT) IHE Encounter Template Text not used by [place] Plan of Treatment: Future Appointments (+ 6 months) and Future Tests (+/- 45 days) The Plan of Treatment section includes future care activities for the patient from all [place] treatmentfacilities. This section includes future appointments and future orders which are active, pending or scheduled. Future Appointments This section includes appointments that were scheduled to occur 6 months from the date of the Encounter, up to a maximum of 20 appointments. The data comes from all [place] treatment facilities. Appointment Date/Time Appointment Type Appointme nt Facility Name May 26, 2024 10:00 AM AMBULATORY - NONE [facility] Jun 15, 2024 09:00 AM AMBULATORY - NONE [facility] Aug 29, 2024 10:30 AM AMBULATORY - NONE [place] JOELLE T [facility] Aug 29, 2024 11:15 AM AMBULATORY - SURGERY [facility] [...] of theEncounter. The data comes from all [facility] facilities. Test Date/Time Test Type Test Details Facility Name May 03, 2024 12:00 AM Laboratory - Chemi stry Order URORISK DIAGNOSTIC PROFILE(Q) 24H RENAL STONE KIT 24H URINE SP [facility] May 17, 2024 02:27 PM Consult Order CAREGIVER SUPPORT PROGRAM OUTPT Cons Smash [facility] May 19, 2024 12:44 PM Consult Order COMMUNITY CARE-PALLIATIVE CARE Cons Smash Hand's Choice [facility] Lab Results: +/- 30 days of the encounter This section includes the Chemistry and Hematology Lab Results on record with [place] for the patient. Radiology Reports and Pathology Reports are provided separately, in subsequent sections. Lab Results This section contains the Chemistry/Hematology Results that were resulted 30 days before or 30 daysafter the date of the Encounter. Date/Time Source Result Type Result - Unit Interpretation Reference Range Comment May 04, 2024 10:32 AM [facility] UREA NITROGEN Specimen Type: PLASMA Comment: , Tests performed on [employer] Lopes [id number] (405) Ordering Provider: DAVID FAM Report Released Date/Time: Nov 15, 2023 11:30 AM Reporting Lab: [facility] [address] [facility] [address] Performing Lab: [facility] [address] [facility] [address] UREA NITROGEN 10 mg/dL 03-16May 04, 2024 10:32 AM [facility] CREATININE WITH eGFR PANEL Specimen Type: PLASMA Comment: , Tests performed on [employer] Desiya Lopes SN:[id number] (405) Ordering Provider: DAVID FAM Report Released Date/Time: Nov 15, 2023 11:30 AM Reporting Lab: [facility] [address] [facility] [address] Performing Lab: [facility] [address] [facility] [address] CREATININE 0.91 mg/dL 0.50-1.50 eGFR(CKD-EPI 2020) 86 Social History: Smoking Status (Most current) and Tobacco Use (All prior to encounter date) This section includes the most current, and the historical, smoking and tobacco- related health factors from the [place] facility where the Encounter took place. Current Smoking Status This section includes the most current smoking, or tobacco-related health factor, from the [place] facility where the Encounter took place. Date/Time Current Smoking Status Comment Nataly ity Feb 21, 2024 10:15 AM VA-TOBACCO USER EVERY DAY [facility] Tobacco Use History This section includes a history of the smoking, or tobacco-related health factors, that were collected on or before the date of the Encounter. The data comes from the [place] facility where the Encounter took place. Date/Time Smoking Status/Tobacco Use Comment F acility Feb 21, 2024 10:15 AM VA-TOBACCO USE ADVICE [facility] Feb 21, 2024 10:15 AM VA-TOBACCO USE TRIAGE TECHNICIAN NO [facility] Feb 21, 2024 10:15 AM VA-TOBACCO USE MED NO [facility] Feb 21, 2024 10:15 AM VA-TOBACCO USE WI 30 MIN OF WAKEUP [facility] Feb 21, 2024 10:15 AM VA-TOBACCO USER EVERY DAY [facility] Jul 17, 2021 02:27 PM CURRENT SMOKER REINIER [facility] Jul 01, 2021 08:55 PM VA-VAAES [...] ALL of a patient's completed or amended [place] Advance and Rescinded Directives. The entries below indicate that a directive exists for the patient, but an actual copy is not included with this document. The data comes from all [place] facilities. Date Advance Directives Provider Source Nov [...] the Encounter. The data comes from all [place] treatment facilities. Date/Time Radiology Report Provider Source May 04, 2024 12:30 PM CTA ABDOMEN AND PE LVIS: GALINA LOYD [id number] -1945 M Exm Date: MAY 04, 2024@12:30 Req Phys: VIMAL FAM Pat Loc: [facility] VASCULAR 15 M3RH (Req'g Lo Img Loc: CT SCAN (OOS) [facility] [place] [address] (Case [id number] COMPLETE) CTA ABDOMEN AND PELVIS (CT Detailed) CPT:00574 Contrast Media : Non-ionic Iodinated Reason for [...] 05, 2024 Date Verified: MAY 05, 2024 Ophthalmology Surgical Technician E-Sig:/ES/NÉSTOR PASCUAL Report: CTA ABDOMEN AND PELVIS [...] REQUIRED Primary Interpreting Staff: NÉSTOR PASCUAL, RADIOLOGIST (Ophthalmology Surgical Technician) /NÉSTOR CONNER [facility] Encounter Notes: All associated encounter notes This section contains the clinical notes associated to the Encounter. Date/Time Encounter Note(s) Provider Source May 23, 2024 08:30 AM CAREGIVER CERTIFIC ATE: LOCAL TITLE: [facility] ADMINISTRATIVE NOTE STANDARD TITLE: CAREGIVER CERTIFICATE DATE OF NOTE: MAY 23, 2024@08:30 ENTRY DATE: MAY 23, 2024@08:30:26 AUTHOR: ADENIKE REYNOLDS EXP COSIGNER: URGENCY: STATUS: COMPLETED [facility] contact information, VA FORM 10-10CG, and PCAFC fact sheets were mailed to the per consult. UCID: [id number] /es/ ADENIKE REYNOLDS RN ONCOLOGY Signed: 05/23/2024 08:30 ADENIKE REYNOLDS [facility]
--- OUTSIDE RECORDS SUMMARY | 2024-05-24 19:27 | XMS_ITS | Encounter Summary ---
Author Organization [facility] Address [facility] [place] [address] Care Team Providers Care Help Desk Assistant Name Role Phone Amanda Pino Primary Care Provider [phone] Encounter Details Date Type Department Care Team (Late Contact Info) Description 09/18/2023 Orders Only Hematology/Oncology at [address] [phone] Kirt Kennedy MD [facility] DR [place] [address] Follicular lymphoma, unspecified grade, unspecified body region Social History Tobacco Use Types Packs/Day Years Used Date Smoking Tobacco: Every Day Cigarettes 1 60.8 Started: 1963 Smokeless Tobacco: Never Comments:rolls on cigarettes smokes less then 20 a day Alcohol Use Standard Drinks/Week Comments Not Currently 0 (1 standard drink = 0.6 oz pure alcohol) 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 unable to answer (comment required) 08/05/2023 Feels Threatened by Someone unable to an swer (comment required) 08/05/2023 Feels Unsafe at Home or Work/School unab le to answer (comment required) 08/05/2023 Physical Signs of Abuse Present no 08/05/2023 Sex and Gender Information Value Date Recorded Sex Assigned at Not on file Gender Identity Not on file Sexual Orientation Not on file documented as of this encounter Plan of Treatment Upcoming Encounters Date Type Department Care Team (Late st Contact Info) Description 11/09/2024 10:30 AM EDT Office Visit Radiation Oncology at [address] [phone] Taya De La Vega PA [facility] DR HEMATOLOGY [place] [address] 11/13/2024 2:00 PM EDT Office Visit Hematology/Oncology at [address] [phone] Kirt Kennedy MD [facility] HEMATOLOGY [place] [address] Alem Lazaro APRN [address] [place] [address] DR HEMATOLOGY AND ONCOLOGY [place], [place] [phone] Scheduled Orders Name Type Priority Associated Diagnoses Orde r Schedule Lactate Dehydrogenase Lab Routine Follicular lymphoma, unspecified grade, unspecified body region Expected: 10/02/2023 (Approximate), Expires: 04/02/2024 CBC (with Diff) Lab Routine Follicular lymphoma, unspecified grade, unspecified body region Expected: 10/02/2023 (Approximate), Expires: 04/02/2024 Comprehensive metabolic panel (non-fasting) Lab Routine Follicular lymphoma, unspecified grade, unspecified body region Expected: 10/02/2023 (Approximate), Expires: 04/02/2024 documented as of this encounter Visit Diagnoses Diagnosis Follicular lymphoma, unspecified grade, unspecified body region documented in this encounter Care Teams Help Desk Assistant Relationship Specialty Start Date End Date Amanda Pino PA [address] [place] [address] PCP - General Internal Medicine 04/28/23 documented as of this encounter
--- OUTSIDE RECORDS SUMMARY | 2024-05-24 19:27 | XMS_ITS ---
Author Organization [facility] Address [facility] [place] [address] Care Team Providers Care Division Roadmaster Name Role Phone Amanda Pino Primary Care Provider [phone] Active Problems Problem Noted Date Diagnosed Date Nephrolithiasis 10/21/2023 Severe protein-calorie malnutrition 02/25/2021 Overview (02/25/2021): Protein-calorie Malnutrition: >20% weight loss in 1 year, Severe subcutaneous fat loss and Severe lean muscle loss is consistent with severe protein-calorie malnutrition in the setting of chronic illness (Mateo, JPEN J Parenteral Enteral Nutr. 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 Path consistent with FL but more tissue needed to rule out for grading and to rule out transformation Normal LDH. PET scan 04/22/15 IMPRESSION: 1. Active lymphoma involving ajay regions in the neck, chest, abdomen, and pelvis as detailed above. 2. Diffusely increased marrow and splenic activity are suspicious for marrow and splenic involvement by lymphoma. 3. Unexpected CT finding of a 36 mm infrarenal abdominal aortic aneurysm. 4. Indeterminate 15 mm non-FDG avid hypodense lesion in the lateral aspect of the left kidney. Consider further evaluation with ultrasound. Watch and wait. Current Oncology Plans No current plan information found. Past Plans No past plan information found. Radiation Treatments * No radiation treatments are documented for this patient in [facility]. Treatments may have been administered in another system. Lifetime Dose Tracking * Chemical Lifetime Dose Automatic Entry Manual Entr y DLP (Dose Length Product) 6,088 mGy-cm 6,088 mGy-cm 0 mGy-cm CTDI (CT Dose Index) Min 182.8 mGy 182.8 mGy 0 m Gy CTDI (CT Dose Index) Max 221.11 mGy 221.11 mGy 0 m Gy
--- OUTSIDE RECORDS SUMMARY | 2024-05-24 19:27 | XMS_ITS | Encounter Summary ---
Author Organization [facility] Address [facility] [place] [address] Care Team Providers Care Regional Controller Name Role Phone Amanda Pino Primary Care Provider Encounter Details Date Type Department Care Team (Late st Contact Info) Description 10/27/2023 Telephone Urology at [facility] [place] [phone] Alex Sewell, RN Social History Tobacco Use Types Packs/Day Years [...] Your Home? unable to answer (comment required) 10/21/2023 Feels Threatened by Someone unable to an swer (comment required) 10/21/2023 Feels Unsafe at Home or Work/School unab le to answer (comment required) 10/21/2023 Physical Signs of Abuse Present no 10/21/2023 Sex and Gender Information Value Date Recorded Sex Assigned at Not on file Gender Identity Not on file Sexual Orientation Not on file documented as of this encounter Miscellaneous Notes * Telephone Encounter - Alex Sewell, RN - 10/27/2023 1:46 PM EST Copied from CRM #[id number]. Topic: Specialty Dept CRMs - Medication Issues >> Oct 27, 2023 1:22 PM Anju Arora wrote: Medication Issues Specialist Landon Relationship (if other than patient-full name): Spouse - Darrel Eduardo Reason for call: Medication Issue (if symptom based used Triage Subtopic) Message/information for the nurse: Darrel states they cannot leave patient unattended and the only day they are free to visit the pharmacy is on . Patient asked if the prescription could be dated to go to the pharmacy on 11/02/23 instead of 11/05/23. Darrel states they will make sure not to give patient their medication until 3 days before their urologic surgery. Please call to advise. Name of Medication: fluconazole (Diflucan) 200 mg tablet Issue with the medication: Patient and spouse cannot seed cone picker medication on scheduled date. documented in this encounter Plan of Treatment Upcoming Encounters Date Type Department Care Team (Late st Contact Info) Description 11/09/2024 10:30 AM EDT Office Visit Radiation Oncology at [address] [phone] Taya De La Vega PA [facility] DR HEMATOLOGY [place] [address] 11/13/2024 2:00 PM EDT Office Visit Hematology/Oncology at [address] [phone] Kirt Kennedy MD [facility] DR HEMATOLOGY [place] [address] Alem Lazaro APRN [address] [place] [address] DR HEMATOLOGY AND ONCOLOGY [place], [place] [address] documented as of this encounter Visit Diagnoses Not on filedocumented in this encounter Care Teams Regional Controller Relationship Specialty Start Date End Date Amanda Pino PA [address] [place] [address] PCP - General Internal Medicine 04/28/23 documented as of this encounter
--- OUTSIDE RECORDS SUMMARY | 2024-05-24 19:27 | XMS_ITS | Encounter Summary ---
Author Organization [facility] Address [facility] [place] [address] Care Team Providers Care Union Carpenter Name Role Phone Amanda Pino Primary Care Provider Encounter Details Date Type Department Care Team (Late st Contact Info) Description 11/19/2023 [place] [phone] Cortez Arrington MD [facility] [place] [place] [address] Social History Tobacco Use Types Packs/Day Years Used Date Smoking Tobacco: Every Day Cigarettes 1 60.8 Started: 1963 Smokeless Tobacco: Never Comments:rolls on cigarettes smokes less then 20 a day Alcohol Use Standard Drinks/Week Comments Not Currently 0 (1 standard drink = 0.6 oz pure alcohol) 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 IPV Inpatient Questions Answer Date Recorded Does [...] encounter Miscellaneous Notes * Telephone Encounter - Cortez Arrington MD - 11/19/2023 11:31 AM EDT Images from the original note were not included. Called patient to discuss Ucx from [facility] on 11/17/23 Pt states they still have 3x doses of 200mg fluconazole prescribed earlier this month. Pt states asymptomatic currently. Planned procedure with Dr. Navarrete on 11/25/23. Told them to take that medication for 3 days prior to procedure. They xpressed understanding Cortez Arrington MD documented in this encounter Plan of Treatment Upcoming Encounters Date Type Department Care Team (Late st Contact Info) Description 11/09/2024 10:30 AM EDT Office Visit Radiation Oncology at [address] [phone] Taya De La Vega PA [facility] [address] [place] [address] 11/13/2024 2:00 PM EDT Office Visit Hematology/Oncology at [address] [phone] Kirt Kennedy MD [facility] [address] [place] [address] Alem Lazaro APRN [address] [place] [address] [place] [address] documented as of this encounter Visit Diagnoses Not on filedocumented in this encounter Care Teams Union Carpenter Relationship Specialty Start Date End Date Amanda Pino PA [address] [place] [address] PCP - General Internal Medicine 04/28/23 documented as of this encounter
--- OUTSIDE RECORDS SUMMARY | 2024-05-24 19:27 | XMS_ITS | Encounter Summary ---
Author Organization [facility] [place] [address] Care Team Providers Care Print Press Operator Name Role Phone Amanda Pino Primary Care Provider [phone] Encounter Details Date Type Department Care Team (Late st Contact Info) Description 11/23/2023 Telephone Urology at [facility] [place] [phone] Donna Ramsey RN Social History Tobacco Use Types Packs/Day [...] encounter Miscellaneous Notes * Telephone Encounter - Donna Ramsey RN - 11/23/2023 5:10 PM EDT I spoke to patients spouse and she said Dr. Navarrete had called patient today around 3pm and left message. Is requesting a call back * Telephone Encounter - Donna Ramsey RN - 11/23/2023 5:07 PM EDT Copied from [facility] #[id number]. Topic: Specialty Dept CRMs - Generic Call >> Nov 23, 2023 4:46 PM Anju Arora wrote: Specialist: Landon Relationship (if other than patient-full name): Self Reason for Call: Patient states they received a call from Dr. Navarrete about canceling the removal of left side kidney stone due [facility]. Patient is returning Dr. Navarrete' call but this rep did not find an encounter documented. Please call to advise. documented in this encounter Plan of Treatment Upcoming Encounters Date Type Department Care Team (Late st Contact Info) Description 11/09/2024 10:30 AM EDT Office Visit Radiation Oncology at [address] [phone] Taya De La Vega PA [facility] DR [place] [address] 11/13/2024 2:00 PM EDT Office Visit Hematology/Oncology at [address] [phone] Kirt Kennedy MD [facility] DR [place] [address] Alem Lazaro APRN [address] [place] [address] DR HEMATOLOGY AND ONCOLOGY [place], [place] [address] documented as of this encounter Visit Diagnoses Not on filedocumented in this encounter Care Teams Print Press Operator Relationship Specialty Start Date End Date Amanda Pino PA [address] [place] [address] PCP - General Internal Medicine 04/28/23 documented as of this encounter
--- OUTSIDE RECORDS SUMMARY | 2024-05-24 19:27 | XMS_ITS | Encounter Summary ---
Author Organization [facility] Address [facility] [place] [address] Care Team Providers Care Cutting And Splicing Supervisor Name Role Phone Amanda Pino Primary Care Provider [phone] Encounter Details Date Type Department Care Team (Late st Contact Info) Description 11/12/2023 [place] [phone] Cortez Arrington MD [facility] [place] [address] Social History Tobacco Use Types Packs/Day Years [...] Telephone Encounter - Cortez Arrington MD - 11/12/2023 3:16 PM EDT Images from the original note were not included. Called patient to discuss culture results from [facility] obtained on 11/10/23. He has upcoming procedure with Dr. Navarrete on 11/25/23. Recommended repeat Ucx to guide preoperative prophylaxis as necessary. New requisition sent to [facility]. Emphasized clean catch technique. Cortez Arrington MD documented in this encounter Plan of Treatment Upcoming Encounters Date Type Department Care Team (Late st Contact Info) Description 11/09/2024 10:30 AM EDT Office Visit Radiation Oncology at [address] [phone] Taya De La Vega PA [facility] [place] [address] 11/13/2024 2:00 PM EDT Office Visit Hematology/Oncology at [address] [phone] Kirt Kennedy MD [facility] [place] [address] Alem Lazaro APRN [address] [place] [address] DR HEMATOLOGY AND ONCOLOGY [place], [place] [id number] Scheduled Orders Name Type Priority Associated Diagnoses Orde r Schedule Urine culture Clean Catch Urine Microbiology Routine Nephrolithiasis Expected: 11/12/2023, Expires: 11/11/2024 documented as of this encounter Visit Diagnoses Diagnosis Nephrolithiasis Calculus of kidney documented in this encounter Care Teams Cutting And Splicing Supervisor Relationship Specialty Start Date End Date Amanda Pino PA [address] [place] [address] PCP - General Internal Medicine 04/28/23 documented as of this encounter
--- OUTSIDE RECORDS SUMMARY | 2024-05-24 19:27 | XMS_ITS | Encounter Summary ---
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 LOCATIONS PRO PLMT NEPHROSTOMY CATH PRQ NEW ACCESS RS&I PRO CYSTO/URETERO/PYELOSCOPY, CALCULUS TX PRO CYSTOSCOPY, REMV CALCULUS, SIMPLE PRG US ABDOMEN REAL TIME, LIMITED NEPHROLITHOTOMY, (PCNL) PERCUTANEOUS, COMPLEX (EG STONE > 2CM) (WRVU 20.91) NEPHROSTOMY CATHETER, PERC, INC DX NEPHROSTOGRAM/URETEROGRAM, IMG GUIDANCE (WRVU 4) CYSTOURETHROSCOPY WITH UTETEROSCOPY, W\REMOVAL, MANIPULATION OF CALCULUS (WRVU 6.75) CYSTO, REMOVAL OF STENT, FOREIGN BODY OR CALCULUS, SIMPLE (WRVU 2.81) ULTRASOUND, INTRAOP, ABDOMINAL, SINGLE ORGAN (WRVU 0.59) MODIFIER HOLMIUM LASER Jonn Navarrete Jr., MD [facility] [place] [address] [facility] Referral ID Status Reason Start Date Expiration Date Visits Re quested Visits Authorized [id number] 1 1 Encounter Details Date Type Department Care Team (Latest Contact Info) Description 10/21/2023 9:23 AM EST - 10/22/2023 6:19 PM EST Hospital Encounter Short Stay Unit at [facility] [place] [address] Jonn Navarrete Jr., MD [facility] [place] [address] Nephrolithiasis Discharge Disposition: Home Social History Tobacco Use Types Packs/Day Years [...] on file documented as of this encounter Last Filed Vital Signs Vital Sign Reading Time Taken Comments Blood Pressure 115/57 10/22/2023 1:25 PM EST Pulse 62 10/21/2023 6:30 PM EST Temperature 36.7 ??C (98 ??F) 10/22/2023 1:25 PM EST Respiratory Rate 16 10/22/2023 1:25 PM EST Oxygen Saturation 97% 10/22/2023 1:25 PM EST Inhaled Oxygen Concentration - - Weight 53.2 kg (117 lb 4.8 oz) 10/21/2023 10:20 AM EST Height 177.8 cm (5' 10) 10/21/2023 10:20 AM EST Body Mass Index 16.83 10/21/2023 10:20 AM EST documented in this encounter Discharge Summaries * Rajinder Melvin MD - 10/22/2023 4:00 PM EST Discharge Summary Patient Name: Narcisa Eduardo Patient Age: 78 y.o. Language: Brazilian Race: White Ethnicity: Not nor Admit date: 10/21/2023 Discharge date: 10/22/2023 Attending Physician: Jonn Navarrete Jr., MD Discharge Diagnoses (Hospital Problems) and Secondary Diagnoses (Chronic Problems): Active Hospital Problems Diagnosis Nephrolithiasis Resolved Hospital Problems No resolved problems to display. Active Non-Hospital Problems Diagnosis Severe protein-calorie malnutrition Trauma Brain aneurysm Intracranial bleed Malignant neoplasm of prostate Follicular lymphoma Operations/Major Procedures: Procedure(s): NEPHROLITHOTOMY, (PCNL) PERCUTANEOUS, COMPLEX (EG STONE > 2CM) (WRVU 20.91) CYSTOURETHROSCOPY WITH UTETEROSCOPY, W\REMOVAL, MANIPULATION OF CALCULUS (WRVU 6.75) CYSTOURETEROSCOPY, DIAGNOSTIC (WRVU 5.75) NEPHROSTOMY CATHETER, PERC, INC DX NEPHROSTOGRAM/URETEROGRAM, IMG GUIDANCE (WRVU 4) ULTRASONIC GUIDANCE, INTRAOP (WRVU 1.2) CYSTO, REMOVAL OF STENT, FOREIGN BODY OR CALCULUS, SIMPLE (WRVU 2.81) 10/21/2023 Surgeon(s): Jonn Navarrete Jr., MD Moll, Nicholas R, MD Robertson, Jasper Whiteside MD History of Presentation: (from pre-op H&P) Narcisa Eduardo is a 78 y.o. male with history of part time s/p radiation, presenting for planned Right PCNLand left stent exchange. No recent changes to health status. Left URS in 08/14 showed innumerable small stones and an impassable right ureter. CT showed persistent left stones. Prior Cx with rivera - Fluc On keflex for GNRs - Ancef Hospital Course: Patient was admitted to [facility] via the same day surgery program and underwent the above procedure. Operative findings as follows: OR Findings 10/21/23: collection of stones >2cm branching through right renal pelvis and lower and mid renal calyces. U/S guided and fluoroscopy directed lower pole access obtained, miniPCNL performed to fragments and extract stones. Right mid/distal ureteral stricture with multiple stones impacted proximal to stricture. Retrograde right ureteroscopy performed, but could only advance to distal ureter with lithovue ureteroscope. Antegrade URS used to extract ureteral stones, then antegrade flex-x ureteroscope advanced to bladder and new stent placed. He tolerated surgery well and was transferred from the PACU to the general floor in good condition a few hours after surgery. Patient's hospital course was uncomplicated. A routine abdominal pelvic CT was performed this morning which revealed small stones in bilateral kidneys, no hydronephrosis, bilateral ureteral stents in appropriate placement. Externalized Pollack nephroureteral catheter and Giraldo catheter were removed without issues. Patient was able to void spontaneously with low PVRs. Patient had some dizziness with ambulating on first walk however his has improved and patient no longerhaving dizziness when walking or standing up. Urology was paged around 1400 that patient felt like a seizure was coming on. When the team went togo see patient he stated that he was then feeling fine. No CP or SOB. When the episode was going on, he felt like his tongue was heavy and felt like he was about to start shaking. This episode occurred right after he finished a short walk. Per his , patient spends most of his time in bed and when he does ambulate his helps him while also him using a walker. [place] and it's thought stressors can trigger seizures. 1615: Patient continues to feel well and denies any other episodes that feels like a seizure is coming on when laying down and standing up/ambualting. Patient standed up and ambulated within his roomat his baseline. Per patient's , patient is at his baseline for moving/ambulating. Patient feels ready for discharge. Cultures from OR : Tissue: NGTD Urine: Pre-sotelo Rivera parapsilosis Anaerobic: NGTD ID curbsided for Rivera parapsilosis - low colony count and likely contaminate that does not require treatment. Will f/u final culture. He remained afebrile, with stable vital signs throughout his hospital stay. Today, on 1 Day Post-Op, he has met all criteria for discharge home: his pain is well controlled with medications by mouth,he is tolerating a regular diet, is voiding spontaneously without difficulties, and is up and ambulating without complications. He has been deemed safe for discharge. Plan: - Finish Keflex course - Bilateral URS/LL in 2-[address] Navarrete (requested) - ASA restart on 10/26 - Cxs added to book Vital Signs at Discharge: Weight: Wt Readings from Last 1 Encounters: 10/21/23 53.2 kg (117 lb 4.8 oz) Height: Ht Readings from Last 1 Encounters: 10/21/23 177.8 cm (5' 10) BMI: Body mass index is 16.83 kg/m??. Last value Range last 24 hrs Temperature Temp: 36.7 ??C (98 ??F) Temp: [36.1 ??C (97 ??F)-36.7 ??C (98 ??F)] Heart Rate Heart Rate: 62 Heart Rate: [60-67] Blood Pressure BP: 115/57 BP: (102-126)/(57-76) Respiratory Rate Resp: 16 Resp: [14-20] SpO2 SpO2: 97 % SpO2: [84 %-100 %] Exam at Discharge: General: NAD CV: regular rate Pulm: nonlabored breathing on room air Abd: soft, non-tender, nondistended, right flank incision c/d/I without pus or drainage : No Giraldo Ext: warm and well-perfused Important Studies and Lab Data: Recent Labs 10/22/23 0050 WBC 16.2* HGB 12.3* PLATELET 276 No results for input(s): INR in the last 72 hours. Recent Labs 10/22/23 0050 NA 138 K 4.5 CL 103 CO2 26 BUN 14 CREATININE 0.74* MAGNESIUM 0.82 PHOS 3.7 Studies: Results for orders placed or performed during the hospital encounter of 10/21/23 CT Abdomen & Pelvis wo Contrast (Exam End: 10/22/2023 4:47 AM) Impression Status post bilateral lithotripsy with residual fragmented renal calculi within the bilateral collecting systems. Preliminary report signed by: Carmelita Sow at 10/22/2023 6:12 AM I have personally reviewed the image(s) and the resident's interpretation and agree with the findings, Damian Duggan MD at 10/22/2023 7:24 AM Thank you for letting us participate in the care of this patient. If you are a health care provider and have any questions regarding this report, please contact the number below. For patients who have questions please contact the health point of care specialist that requested your imaging first. Pending Studies and Lab Data: The patient will need the following 3 tests completed on: 09/06/2023 1. Urine culture Clean Catch Urine 3. Kidney Stone Analysis 2. Kidney Stone Analysis Diagnosis: Nephrolithiasis (N20.0) Authorizing Provider: Jonn Navarrete Jr., MD Discharge Conditions/Prognosis: Stable Discharge to: Home Updated Allergies/ADRs: Allergies Allergen Reactions Contrast [Iodine And Iodide Containing Products] Hives Depakote [Divalproex] Other (See Comments) Thrombocytopenia and spontaneous bleeding Immunizations Given this Hospitalization: There is no immunization history on file for this patient. Discharge Medications: Your Medications Continued medications, unchanged Dose Details ALENDRONATE-VITAMIN D3 ORAL Take 25 mcg by mouth. 25 mcg Refills: 0 aspirin EC 81 mg EC (DR) tablet Take 81 mg by mouth daily. 81 mg Refills: 0 atorvastatin 80 mg tablet Commonly known as: Lipitor Take 80 mg by mouth daily. 80 mg Refills: 0 cephALEXin 500 mg capsule Commonly known as: Keflex Take 1 capsule by mouth 3 times daily. 500 mg Quantity: 21 capsule Refills: 0 cholecalciferol 1,000 unit tablet Commonly known as: Vitamin D3 Take by mouth. Refills: 0 melatonin 3 mg tablet Take by mouth. Refills: 0 mirtazapine 15 mg tablet Commonly known as: Remeron TAKE ONE-HALF TABLET BY MOUTH AT BEDTIME FOR DEPRESSION/MOOD Refills: 0 potassium chloride ER 10 mEq ER tablet Commonly known as: Klor-Con, K-Tab 10 mEq. 10 mEq Refills: 0 PROBIOTIC ORAL TAKE ONE TABLET BY MOUTH EVERY DAY Refills: 0 senna-docusate 8.6-50 mg Tablet Commonly known as: Pericolace Take 1 tablet by mouth 2 times daily. 1 tablet Quantity: 60 tablet Refills: 11 tamsulosin 0.4 mg capsule Commonly known as: Flomax Take 0.8 mg by mouth daily. 0.8 mg Refills: 0 Vimpat 200 mg tablet Take 1 tablet by mouth 2 times daily. Generic drug: lacosamide 200 mg Quantity: 60 tablet Refills: 0 Smoking Status at Discharge: Social History Tobacco Use Smoking Status Every Day Packs/day: 1 Types: Cigarettes Start date: 1963 Smokeless Tobacco Never Tobacco Comments rolls on cigarettes smokes less then 20 a day Instructions Given to Patient at Discharge: Patient Instructions DISCHARGE INSTRUCTIONS FOLLOWING PCNL Call your doctor for: fevers greater than 100.5 severe nausea or vomiting increasing pain not controlled by pain medications increasing redness or drainage from incisions decreased urine output or if your catheter is no longer draining. before 5 PM weekdays for urgent concerns after 5 PM and weekends. Ask for the on-call Urology resident Activity: Gradually increase activity with short frequent walks, three to four times a day. Avoid strenuous activities, like sports, lawn mowing, or heavy lifting more than 10-15 pounds for the next 4-6 weeks.Wear loose, comfortable clothing. Do not drive while taking pain medication, or until your doctor permits it. Shower: You should not shower for 48 hours after surgery. Do not soak your back in a bathtub/hot tub. Diet: It is extremely important to drink plenty of fluids after surgery, especially water. You may resume your regular diet, unless otherwise instructed. Medications: You may take acetaminophen (Tylenol) up to 1000mg every 6 hours and/or ibuprofen (Motrin, Advil, orgeneric) up to 600mg every 8 hours We recommend alternating acetaminophen and ibuprofen so that you are taking one every 3 hours. For example, acetaminophen at 12pm, ibuprofen 3pm, acetaminophen 6pm, ibuprofen 9pm, etc. Do not exceed 4000mg acetaminophen in 24 hours. Do not exceed 3200mg ibuprofen in 24 hours. You may be prescribed narcotic pain medication (oxycodone, dilaudid, etc.) to control your discomfort after surgery. Do NOT use alcohol, drive, or operate heavy or complex machinery while taking these medications, as they impair your ability to perform these activities safely. Side effects include nausea, vomiting, constipation, and dry mouth. Stool softeners, such as Colace; mild laxatives, suchas Milk of Magnesia, Sennakot, or Ducolax tabs; or enemas may be used if needed and are [id number]-[id number]-[id number] medications available at most local pharmacies. Prunes or prune juice, taken daily, can also be helpful for constipation treatment or prevention and are available at most supermarkets. Please continue taking antibiotic Cephalexin (Keflex) until entire course is finished. You can restart your Aspirin on Wednesday10/25/23. Follow up: An appointment will be scheduled with Dr. Navarrete in 2-4 weeks for follow-up surgery to remove residual stone from today's surgery. This has been requested. Our clinic will call you to schedule. Please call [phone] (clinic number for appointments) to confirm date and time of your appointment if you do not receive it with 7-10 days. Please follow-up with your neurologist immediately if you having any seizure like activity at home or call 911 to go to the ER. You have a ureteral stent in place. It is important to remember that a stent is not a permanent device and must be removed in a timely fashion. Failure to remove a stent may result in the need for more procedures. General Instructions None Future Appointments and Orders Future Appointments and Orders Future Appointments Provider Department Dept Phone 11/11/2023 10:30 AM Taya De La Vega PA Radiation Oncology at [facility] Arrive at: [facility] door at end of hallway [phone] 11/15/2023 2:30 PM Alem Lazaro APRN; Kirt Kennedy MD Hematology/Oncology at [facility] Arrive at: [facility] door at end of hallway [phone] Follow-Up: Future Appointments Date Time Provider Department [place] 11/11/2023 10:30 AM Taya De La Vega PA [facility] 11/15/2023 2:30 PM Kirt Kennedy MD [facility] Primary Care Provider: MARISOL Munoz [phone] Unexpected Findings: Follow-up with neurologist immediately or go to ER right away for seizure likeactivity Call your doctor if: Please call your doctor immediately or go to an Emergency Department if you notice worsening pain not controlled by pain medications, uncontrolled headache, vision changes, chest pain, difficulty breathing, persistent nausea and vomiting, new redness or swelling in any extremities, new onset weakness or changes in sensation, or for any fevers greater than 101.3 F. Your care was managed by the Urology Team at [facility]. If you have any questions or concerns, please feel free to contact us. Provider Contact Information: Urology Clinic: [facility] (after business hours): Total time spent on discharge including [id number]-[id number] time, care coordination, and discharge summarypreparation: 80 minutes Rajinder Melvin MD 10/22/2023 documented in this encounter Discharge Instructions * Patient Instructions* Solange Shrestha PA - 10/22/2023 11:04 AM EST DISCHARGE INSTRUCTIONS FOLLOWING PCNL Call your doctor for: fevers greater than 100.5 severe nausea or vomiting increasing pain not controlled by pain medications increasing redness or drainage from incisions decreased urine output or if your catheter is no longer draining. before 5 PM weekdays for urgent concerns after 5 PM and weekends. Ask for the on-call Urology resident Activity: Gradually increase activity with short frequent walks, three to four times a day. Avoid strenuous activities, like sports, lawn mowing, or heavy lifting more than 10-15 pounds for the next 4-6 weeks.Wear loose, comfortable clothing. Do not drive while taking pain medication, or until your doctor permits it. Shower: You should not shower for 48 hours after surgery. Do not soak your back in a bathtub/hot tub. Diet: It is extremely important to drink plenty of fluids after surgery, especially water. You may resume your regular diet, unless otherwise instructed. Medications: You may take acetaminophen (Tylenol) up to 1000mg every 6 hours and/or ibuprofen (Motrin, Advil, orgeneric) up to 600mg every 8 hours We recommend alternating acetaminophen and ibuprofen so that you are taking one every 3 hours. For example, acetaminophen at 12pm, ibuprofen 3pm, acetaminophen 6pm, ibuprofen 9pm, etc. Do not exceed 4000mg acetaminophen in 24 hours. Do not exceed 3200mg ibuprofen in 24 hours. You may be prescribed narcotic pain medication (oxycodone, dilaudid, etc.) to control your discomfort after surgery. Do NOT use alcohol, drive, or operate heavy or complex machinery while taking these medications, as they impair your ability to perform these activities safely. Side effects include nausea, vomiting, constipation, and dry mouth. Stool softeners, such as Colace; mild laxatives, suchas Milk of Magnesia, Sennakot, or Ducolax tabs; or enemas may be used if needed and are htix-kpt-evuejjl medications available at most local pharmacies. Prunes or prune juice, taken daily, can also be helpful for constipation treatment or prevention and are available at most supermarkets. Please continue taking antibiotic Cephalexin (Keflex) until entire course is finished. You can restart your Aspirin on Wednesday10/25/23. Follow up: An appointment will be scheduled with Dr. Navarrete in 2-4 weeks for follow-up surgery to remove residual stone from today's surgery. This has been requested. Our clinic will call you to schedule. Please call [phone] (clinic number for appointments) to confirm date and time of your appointment if you do not receive it with 7-10 days. Please follow-up with your neurologist immediately if you having any seizure like activity at home or call 911 to go to the ER. You have a ureteral stent in place. It is important to remember that a stent is not a permanent device and must be removed in a timely fashion. Failure to remove a stent may result in the need for more procedures. documented in this encounter Medications at Time of Discharge Medication Sig Dispensed Refills Start Date End Date aspirin EC 81 mg EC (DR) tablet Take 81 mg by mouth daily. potassium chloride ER (Klor-Con, K-Tab) 10 mEq ER tablet 10 mEq. 05/10/2023 alendronate sodium/vitamin D3 (ALENDRONATE-VITAMIN D3 ORAL) Take 25 mcg by mouth. 06/26/2022 melatonin 3 mg Tablet Take by mouth. cholecalciferol, Vitamin D3, (Vitamin D3) 1,000 unit Tablet Take by mouth. 01/05/2021 Lactobacillus acidophilus (PROBIOTIC ORAL) TAKE ONE TABLET BY MOUTH EVERY DAY 02/07/2021 lacosamide (Vimpat) 200 mg Tablet Take 1 tablet by mouth 2 times daily. 60 tablet 02/27/2021 senna-docusate (Pericolace) 8.6-50 mg Tablet Take 1 tablet by mouth 2 times daily. 60 tablet 11 02/26/2021 tamsulosin (Flomax) 0.4 mg Capsule Take 0.8 mg by mouth daily. 12/17/2020 atorvastatin (Lipitor) 80 mg Tablet Take 80 mg by mouth daily. 10/04/2019 cephALEXin (Keflex) 500 mg capsule Take 1 capsule by mouth 3 times daily. 21 capsule 10/18/2023 11/15/2023 mirtazapine (Remeron) 15 mg Tablet TAKE ONE-HALF TABLET BY MOUTH AT BEDTIME FOR DEPRESSION/MOOD 09/29/2021 11/11/2023 documented as of this encounter Progress Notes * Tanvi Gant RN - 10/22/2023 6:16 PM EST [facility] Short Stay Unit Discharge Note All relevant discharge milestones have been met by the patent. After Visit Summary and discharge teaching reviewed with the patient and a family member. IV access has been discontinued. All personal belongings have been returned to the patient/family upon their departure from the unit. Patient has been discharged to home The patient has been discharged without VNA services. * Tanvi Gant RN - 10/22/2023 2:52 PM EST Pt stated they felt like they were going to have a seizure. Nurse stayed in room while life safety was paged. Life safety assessed and were comfortable leaving after prn ativan was added to MAR. Suction and oxygen where stationed at the ready and the side of the bed were padded with pillows. Team was notified. Pt symptoms did not progress and pt said they were starting to fell better. * Solange Shrestha PA - 10/22/2023 2:50 PM EST Urology Progress Note Patient: Narcisa Eduardo : 1945 Room: [address] Admit date: 10/21/2023 Attending: Jonn Navarrete Jr., MD ID: Narcisa Eduardo is a 78 y.o. male with a history of seizures, AAA, CVA in 2019, prostate cancer, 1Day Post-Op s/p right PCNL and left ureteral stent exchange . Past 24 hr Events: - Pollack nephroureteral catheter and Giraldo removed, voiding spontaneously - Patient reported feeling like seizure coming on in afternoon after walk however doing fine presently and no seizure occurred - On Keflex - Cxs NGTD - Labs stable - VSS, Afebrile Current Medications: LORazepam 1 mg Intravenous Once atorvastatin 80 mg Oral Daily cephALEXin 500 mg Oral TID lacosamide 200 mg Oral BID melatonin 3 mg Oral Nightly tamsulosin 0.8 mg Oral Daily senna-docusate 2 tablet Oral BID sodium chloride 0.9 % (flush) 5 mL Intravenous BID Objective: Last value Range last 24hrs Temperature Temp: 36.7 ??C (98 ??F) Temp: [36.1 ??C (97 ??F)-36.7 ??C (98 ??F)] Heart Rate Heart Rate: 62 Heart Rate: [60-67] Blood Pressure BP: 115/57 BP: (102-126)/(57-76) Respiratory Rate Resp: 16 Resp: [14-20] SpO2 SpO2: 97 % SpO2: [84 %-100 %] Intake/Output Summary (Last 24 hours) at 10/22/2023 1451 Last data filed at 10/22/2023 1118 Gross per 24 hour Intake 540 ml Output 2200 ml Net -1660 ml Physical Exam: Gen: NAD, awake/alert CV: regular rate Pulm: non-labored breathing on room air Abd: soft, non-tender, non-distended, right flank incision c/d/i : No Giraldo Ext: warm, well perfused, moving spontaneously Labs: Recent Labs 10/22/23 0050 WBC 16.2* HGB 12.3* HCT 37.7* PLATELET 276 Recent Labs 10/22/23 0050 NA 138 K 4.5 CL 103 CO2 26 BUN 14 CREATININE 0.74* GLUCOSE 211* CALCIUM 9.3 MAGNESIUM 0.82 PHOS 3.7 Component Value Date/Time SPGRAVITYUA 1.011 02/18/20212012 PHUADIP 8.0 02/18/20212012 PROTEINUADIP Trace (A) 02/18/20212012 GLUCOSEU Negative 02/18/20212012 KETONESUA Negative 02/18/20212012 UROBILIUADIP Normal 02/18/20212012 BLOODUADIP Moderate (A) 02/18/20212012 NITRATEUA Positive (A) 02/18/20212012 LEUKOESTERUA Moderate (A) 02/18/20212012 WBCUA 46 (H) 02/18/20212012 BILIRUBINUA Negative 02/18/20212012 Imaging: CT Abdomen & Pelvis w/o contrast 10/22/23 IMPRESSION Status post bilateral lithotripsy with residual fragmented renal calculi within the bilateral collecting systems. Micro: OR cultures 10/21/23: Tissue: NGTD Urine: NGTD Anaerobic: NGTD A/P: Narcisa Eduardo is a 78 y.o. male now 1 Day Post-Op s/p right PCNL and left ureteral stent exchange . Minimal pain. Pollack nephroureteral catheter and Giraldo catheter removed. Patient voiding spontaneously with appropriate PVRs. Urology was paged around 1400 that patient felt like a seizure was coming on. When the team went to go see patient he stated that he was then feeling fine. No CP or SOB. When the episode was going on, he felt like his tongue was heavy and felt like he was about to start shaking. This episode occurred right after he finished a short walk. Per his , patient spends most of his time in bed and when he does ambulate his helps him while also him using a walker. [place] and it's thought stressors can trigger seizures. Will continue to monitor. Today's Plan: Pain control OOB as tolerated Monitor for seizure activity Neuro: # History of seizures - Lacosamide - monitor for seizure activity # Pain control - shyam Tylenol, PO prn Oxycodone CV: HDS, monitor vital signs # HLD - Atorvastatin Pulm: encourage IS/OOB, deep breathing FENGI: Regular diet - bowel meds: shyam PeriColace : monitor urine output - voiding spontaneously ID: on Keflex Heme: [id number] Endo: None Psych: None PPX: SCDs, deep breathing, cough, ambulation Dispo: floor status, Attempt Cardiopulmonary Resuscitation - Inpatient Plan discussed with Dr. Navarrete, Urology attending. MARISOL Gomez 10/22/2023 [id number] * Carlos Figueroa MD - 10/21/2023 9:18 PM EST POST-OPERATIVE ASSESSMENT Patient Name: Narcisa Eduardo Patient Age: 78 y.o. Attending Physician: Jonn Navarrete Jr., MD Narcisa Eduardo is a 78 y.o. male s/p below procedures Procedure(s): NEPHROLITHOTOMY, (PCNL) PERCUTANEOUS, COMPLEX (EG STONE > 2CM) (WRVU 20.91) CYSTOURETHROSCOPY WITH UTETEROSCOPY, W\REMOVAL, MANIPULATION OF CALCULUS (WRVU 6.75) CYSTOURETEROSCOPY, DIAGNOSTIC (WRVU 5.75) NEPHROSTOMY CATHETER, PERC, INC DX NEPHROSTOGRAM/URETEROGRAM, IMG GUIDANCE (WRVU 4) ULTRASONIC GUIDANCE, INTRAOP (WRVU 1.2) CYSTO, REMOVAL OF STENT, FOREIGN BODY OR CALCULUS, SIMPLE (WRVU 2.81) Subjective: no complaints, denies nausea, vomiting, chest pain, shortness of breath O: Last value Range last 24hrs Temperature Temp: 36.1 ??C (97 ??F) Temp: [36.1 ??C (97 ??F)-36.9 ??C (98.4 ??F)] Heart Rate Heart Rate: 62 Heart Rate: [58-67] Blood Pressure BP: 120/71 BP: (102-120)/(61-76) Respiratory Rate Resp: 19 Resp: [14-20] SpO2 SpO2: 95 % SpO2: [91 %-98 %] Physical Exam: Gen: NAD, AAO CV: regular Pulm: normal respirations, no use of accessory muscles, no stridor/audible wheezing Abd: soft, appropriately tender, not distended Ext: no cyanosis or edema Neuro: no focal deficits No results for input(s): WBC, HGB, HCT, PLATELET, PT, INR, PTT in the last 72 hours. No results for input(s): NA, K, CL, CO2, BUN, CREATININE, GLUCOSE, CALCIUM, MAGNESIUM, PHOS in the last 72 hours. ASSESSMENT: Narcisa Eduardo is a 78 y.o. male s/p above procedures, currently in stable condition and recovering well following surgery. PLAN: - Appropriate for the floor - Pain well controlled - Hemodynamically stable - Continue post-op plan * Tayler Merrill RN - 10/21/2023 8:07 PM EST Assumed care at 1900. VSS. Surgical site WDL. Report given to Short Stay. * Loretta Thomson RN - 10/21/2023 5:20 PM EST 1714 Pt arrived to [id number] from OR. Connected to monitor, alarms set and reviewed. Airway maintainedwith an oral airway. Right flank site covered with gauze and CDI. Giraldo in place draining red urineadequately. VSS. 1900 Report given to MAYA Lester for change of shift. documented in this encounter H&P Notes * Maycol Caruso MD - 10/21/2023 10:50 AM EST Patient Name: Narcisa Eduardo Age: 78 y.o. Date of : 1945 Attending Provider: Jonn Navarrete Jr., MD Narcisa Eduardo is a 78 y.o. male with history of part time s/p radiation, presenting for planned Right PCNLand left stent exchange. No recent changes to health status. Left URS in 08/14 showed innumerable small stones and an impassable right ureter. CT showed persistent left stones. 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 no XRT Seizures Thoracic aortic aneurysm Trauma Past Surgical History: Procedure Laterality Date COLONOSCOPY [address] [facility] Dr Ko PRO CYSTO W URETEROSCOPY &/OR PYELOSCOPY, DX Right 08/05/2023 CYSTOURETEROSCOPY, DIAGNOSTIC (WRVU 5.75) performed by Jonn Navarrete Jr., MD at [facility] MAIN OR PRO CYSTO/URETEROSCOPY W/LITHOTRIPSY INC INDWELLING STENT INSERTION Left 08/05/2023 CYSTOURETEROSCOPY,DIAGNOSTIC,W/ LITHOTRIPSY INC. INSERTION OF INDWELLING URETERAL STENT (WRVU 8) performed by Jonn Navarrete Jr., MD at [facility] MAIN OR PRO CYSTOSCOPY, INSERT URETERAL STENT Right 08/05/2023 CYSTO, STENT PLACEMENT (WRVU 2.82) performed by Jonn Navarrete Jr., MD at [facility] MAIN OR PROSTATE BIOPSY 11/23/2019 ALLERGIES Allergies Allergen Reactions Contrast [Iodine And Iodide Containing Products] Hives Depakote [Divalproex] Other (See Comments) Thrombocytopenia and spontaneous bleeding MEDICATIONS No current facility-administered medications on file prior to encounter. Current Outpatient Medications on File Prior to Encounter Medication Sig Dispense Refill melatonin 3 mg Tablet Take by mouth. cholecalciferol, Vitamin D3, (Vitamin D3) 1,000 unit Tablet Take by mouth. Lactobacillus acidophilus (PROBIOTIC ORAL) TAKE ONE TABLET BY MOUTH EVERY DAY lacosamide (Vimpat) 200 mg Tablet Take 1 tablet by mouth 2 times daily. 60 tablet 0 tamsulosin (Flomax) 0.4 mg Capsule Take 0.8 mg by mouth daily. atorvastatin (Lipitor) 80 mg Tablet Take 80 mg by mouth daily. aspirin EC 81 mg EC (DR) tablet Take 81 mg by mouth daily. potassium chloride ER (Klor-Con, K-Tab) 10 mEq ER tablet 10 mEq. alendronate sodium/vitamin D3 (ALENDRONATE-VITAMIN D3 ORAL) Take 25 mcg by mouth. mirtazapine (Remeron) 15 mg Tablet TAKE ONE-HALF TABLET BY MOUTH AT BEDTIME FOR DEPRESSION/MOOD senna-docusate (Pericolace) 8.6-50 mg Tablet Take 1 tablet by mouth 2 times daily. 60 tablet 11 PHYSICAL EXAM Temp: [36.9 ??C (98.4 ??F)] Heart Rate: [58] Resp: [20] BP: (111)/(70) SpO2: [95 %] Heart Rate from SpO2: -- GEN: Resting comfortably in bed, conversant, NAD. CHEST: Normal work of breathing. CV: Sinus rhythm. 2+ pulses bilaterally. ABD: Soft, non-tender, non-distended. EXTR: Moving spontaneously. SKIN: Warm and dry. NEURO: Alert and follows commands. ASSESSMENT / PLAN 78 y.o. male presenting for right PCNL and left stent exchange. Patient appears fit for surgery. The details, alternatives, risks, and benefits of the procedure were reviewed, and the patient wishes to proceed. Informed consent has been obtained. All questions were answered to the patient's satisfaction. Proceed with surgery. The patient's history and physical exam have been reviewed and completed. There has been no interval change from that of the pre-operative history and physical exam performed within the last 30 days. documented in this encounter Miscellaneous Notes * Brief Op Note - Jonn Navarrete Jr., MD - 10/21/2023 5:20 PM EST Brief Operative Note Patient Name: Narcisa SOARES: [id number] MR#: [id number] Case Date: 10/21/2023 Surgeon: Surgeon(s) and Role: * Jonn Navarrete Jr., MD - Primary * Jasper Abreu MD - Resident - Assisting * Maycol Caruso MD - Resident - Assisting Preoperative diagnosis: >2cm RIGHT STONE , large left renal stones Postoperative diagnosis: same Procedure(s) (LRB): NEPHROLITHOTOMY, (PCNL) PERCUTANEOUS, COMPLEX (EG STONE > 2CM) (WRVU 20.91) (Right) CYSTOURETHROSCOPY WITH UTETEROSCOPY, W\REMOVAL, MANIPULATION OF CALCULUS (WRVU 6.75) (Left) CYSTOURETEROSCOPY, DIAGNOSTIC (WRVU 5.75) (Right) NEPHROSTOMY CATHETER, PERC, INC DX NEPHROSTOGRAM/URETEROGRAM, IMG GUIDANCE (WRVU 4) (Right) ULTRASONIC GUIDANCE, INTRAOP (WRVU 1.2) (N/A) CYSTO, REMOVAL OF STENT, FOREIGN BODY OR CALCULUS, SIMPLE (WRVU 2.81) (Bilateral) Anesthesia: General Findings: collection of stones >2cm branching through right renal pelvis and lower and mid renalcalyces. U/S guided and fluoroscopy directed lower pole access obtained, miniPCNL performed to fragments and extract stones. Right mid/distal ureteral stricture with multiple stones impacted proximalto stricture. Retrograde right ureteroscopy performed, but could only advance to distal ureter withlithovue ureteroscope. Antegrade URS used to extract ureteral stones, then antegrade flex-x ureteroscope advanced to bladder and new stent placed. Retrograde left ureteroscopy performed, with distal ureteral stricture navigable with flexible scope. Large left renal stone encountered as well as smaller stones. Small stones extracted from left renal pelvis; stent replaced with plan for left ureteroscopy and laser lithotripsy. Complications: none evident Intake: Intraprocedure Crystalloid Total Intake lactated ringers 700.00 mL ceFAZolin (Ancef) 2 g vial attach to sodium chloride 0.9% 100 mL Mini-Bag Plus 100.00 mL fluconazole (Diflucan) 400 mg in sodium chloride 0.9% 200 mL infusion 100.00 mL Total Intake 900 mL Output Blood Loss 100 mL Total Output 100 mL Net Net Volume 800 mL Transfusion No data found in the last 1 encounters. Output: Estimated Blood Loss: 100 mL Urine Output:: (no urine output recorded) Other Output: (no other output recorded) Drains: 6fr variable right ureteral stent; 8fr 26 cm Tria left ureteral stent; 5 fr pollock externalized right nephroureteral catheter; 18 fr giraldo urethral catheter Specimens removed during surgery: right stone for analysis and culture; urine for culture; left stone for analysis Disposition: awakened from anesthesia, extubated and taken to the recovery room in a stable condition, having suffered no apparent untoward event. Condition: doing well without problems Attestation: Case Date: 10/21/2023 I was present and I participated during the entire procedure. (Please see the Surgical Encounter Summary for any Implant and Specimen details pertinent to this patient.) * Op Note - Jonn Navarrete Jr., MD - 10/21/2023 1:50 PM EST [facility] [place] Patient Name: Narcisa Eduardo : [id number] MR#: [id number] Case Date: 10/21/2023 Surgeon: Surgeon(s) and Role: * Jonn Navarrete Jr., MD - Primary * Jasper Abreu MD - Resident - Assisting * Maycol Caruso MD - Resident - Assisting Preoperative diagnosis: >2cm RIGHT STONE , large left renal stones Postoperative diagnosis: same Procedure(s) (LRB): NEPHROLITHOTOMY, (PCNL) PERCUTANEOUS, COMPLEX (EG STONE > 2CM) (WRVU 20.91) (Right) CYSTOURETHROSCOPY WITH UTETEROSCOPY, W\REMOVAL, MANIPULATION OF CALCULUS (WRVU 6.75) (Left) CYSTOURETEROSCOPY, DIAGNOSTIC (WRVU 5.75) (Right) NEPHROSTOMY CATHETER, [facility] DX NEPHROSTOGRAM/URETEROGRAM, IMG GUIDANCE (WRVU 4) (Right) ULTRASONIC GUIDANCE, INTRAOP (WRVU 1.2) (N/A) CYSTO, REMOVAL OF STENT, FOREIGN BODY OR CALCULUS, SIMPLE (WRVU 2.81) (Bilateral) Anesthesia: General Findings: collection of stones >2cm branching through right renal pelvis and lower and mid renalcalyces. U/S guided and fluoroscopy directed lower pole access obtained, miniPCNL performed to fragments and extract stones. Right mid/distal ureteral stricture with multiple stones impacted proximalto stricture. Retrograde right ureteroscopy performed, but could only advance to distal ureter withlithovue ureteroscope. Antegrade URS used to extract ureteral stones, then antegrade flex-x ureteroscope advanced to bladder and new stent placed. Retrograde left ureteroscopy performed, with distal ureteral stricture navigable with flexible scope. Large left renal stone encountered as well as smaller stones. Small stones extracted from left renal pelvis; stent replaced with plan for left ureteroscopy and laser lithotripsy. Complications: none evident Intake: Intraprocedure Crystalloid Total Intake lactated ringers 700.00 mL ceFAZolin (Ancef) 2 g vial attach to sodium chloride 0.9% 100 mL Mini-Bag Plus 100.00 mL fluconazole (Diflucan) 400 mg in sodium chloride 0.9% 200 mL infusion 100.00 mL Total Intake 900 mL Output Blood Loss 100 mL Total Output 100 mL Net Net Volume 800 mL Transfusion No data found in the last 1 encounters. Output: Estimated Blood Loss: 100 mL Urine Output:: (no urine output recorded) Other Output: (no other output recorded) Drains: 6fr variable right ureteral stent; 8fr 26 cm Tria left ureteral stent; 5 fr pollock externalized right nephroureteral catheter; 18 fr giraldo urethral catheter Specimens removed during surgery: right stone for analysis and culture; urine for culture; left stone for analysis Disposition: awakened from anesthesia, extubated and taken to the recovery room in a stable condition, having suffered no apparent untoward event. Condition: doing well without problems (Please see the Surgical Encounter Summary for any Implant and Specimen details pertinent to this patient.) HPI/Surgical Indications: Narcisa Eduardo is a 78 y.o. 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 No recent changes to health status. Left URS in 08/14 showed innumerable small stones and an impassable right ureter. CT showed persistent left stones. Procedure Description: Narcisa Eduardo was met in the preoperative holding area where questions were answered and informed operative consent was confirmed and obtained. We confirmed preoperative antibiotic administration. He was then transported to the operating room,and after Venodyne boots were placed, general anesthesia was induced in the supine position. He wasthen carefully placed in a prone position with all pressure points adequately padded. A timeout wasperformed to confirm identity of the our patient and planned procedure. His perineum, right flank and back where then prepped and draped in the usual sterile surgical fashion for percutaneous renal surgery. A flexible cystoscope was then passed through the urethra and into the bladder under direction vision. Ureteral stent was grasped grasped and extracted. Glidewire was then passed through the stents and were advanced up to the renal pelvis under fluoroscopic guidance. The right ureter remained narrow above the distal ureter and could not initially be passed. No evidence stones were seen within theinspected the distal right ureter. Left ureter was narrowed but was navigable with the flexible ureteroscope. Large renal stone and additional small lower stones were identified. Mobility was limitedby the prone position but several small stones were grasped and extracted for stone analysis. Stentwas replaced with a new 8 Nepalese 26 cm stent in a retrograde fashion. A Pollick catheter was placedover the right ureteral wire and contrast was instilled to opacify the collecting system. A Giraldo catheter was placed. Ultrasound was then utilized to identify the kidney and assess perirenal structures. The caudal margin of the pleura was identified and a potential tract for access access below the pleural margin was confirmed. A mid renal calyx was identified and targeted, entered with an 18-gauge needle but wirecould not be advanced out of the calyx. We then turned our attention to the lower pole calyx. Underultrasound guidance an 18-gauge needle was advanced into this calyx. A Glidewire was passed throughthe needle, was confirmed to conform to boundaries of the collecting system on fluoroscopic evaluation. An 8 Nepalese dilator was used to dilate the tract and then a angiographic catheter was advanced over the wire to allow us to steer the wire towards the UPJ. Then the 0.035 Glidewire was navigated across the UPJ, down the ureter, into the bladder and out the urethra. The wire was exchanged via a Pollick catheter for a Super Stiff wire. The 8-10 dilator was then passed over the superstiff . The inner obturator of the dilator was removed and a second glidewire was advanced into the renal pelvisand down the ureter to the bladder in the same fashion. This was exchanged for a superstiff wire inthe same fashion. A 21/22 Nepalese mini PCNL obturator was advanced over the wire under fluoroscopy to the level of thecalyx. Over the obturator the 22 Nepalese mini PCNL sheath was advanced and positioned within the collecting system. Obturator was removed and the slender scope nephroscope was advanced. Innumerable small stones were identified and evacuated. Larger stone was identified within the renal pelvis as well. This was fragmented with the trilogy LithoClast and fragments were evacuated. Once the entire renal pelvis was free of stone visually with the rigid nephroscope, the rigid nephroscope was removed and replaced with the flexible nephroscope. The flexible nephroscope was then used to inspect the jerad bashir of the renal calyces. Additional small calyceal stones were identified and removed with a nitinol basket. When this was complete and there was no endoscopically evident residual stone, the nephroscope was removed. The flexible ureteroscope was then advanced through the sheath and down the ureter. Severalsmall stones were identified, grasped, and extracted. Strictured ureter was identified and approximately the level of the pelvic brim. Scope could not initially be passed beyond this. With irrigation, impacted stones were identified at this level as well. A retrograde ureteroscope was passed up theright ureter and this was used to gently irrigate and apply pressure to the stones which were then grasped with the basket by the antegrade ureteroscope and extracted. When all impacted stones had also been removed. The retrograde ureteroscope was withdrawn. We then able to gently advance the flex X flexible ureteroscope across the strictured region and into the bladder. Confirming no additional ureteral stones, a Glidewire was then passed through the ureteroscope and coiled in the bladder and the ureteroscope was withdrawn. The nephroscope was then back-loaded over the glidewire and advanced into the renal pelvis. A 6 Nepalese variable length double-J ureteral stent was then passed over the wire and down the right ureter in an antegrade fashion under fluoroscopic guidance. Proximal curl formed in the renal pelvis and distal curl within the bladder. The nephroscope was then removed. Surgiflo was applied to the tract. A 5 Nepalese Pollick catheter was passed over the safety wire and the wire was withdrawn. Skin edges were reapproximated with 4-0 Monocryl. The [place] catheter was then secured to the skin using two 0-Silk sutures. The guidewire was then removed from the Ella and Burnham catheter combination. The other remaining superstiffsafety wire was then removed. Fluoroscopy and ultrasound of the chest revealed no evidence of hydrothorax or pneumothorax. Local anesthetic was administered to the incision site. The nephrostomy sitewas then dressed with dry sterile gauze. He was then placed back in the supine position on his hospital bed and extubated. There were no immediate complications. The patient was transferred to the postanesthesia care unit in stable condition. I was scrubbed and present for the entire duration of the procedure. Attestation: Case Date: 10/21/2023 I was present and I participated during the entire procedure. JONN NAVARRETE JR, MD 10/22/2023 documented in this encounter Plan of Treatment Upcoming Encounters Date Type Department Care Team (Late st Contact Info) Description 11/09/2024 10:30 AM EDT Office Visit Radiation Oncology at [address] [phone] Taya De La Vega PA [facility] DR HEMATOLOGY [place] [address] 11/13/2024 2:00 PM EDT Office Visit Hematology/Oncology at [address] [phone] Kirt Kennedy MD [facility] DR HEMATOLOGY [place] [address] Alem Lazaro APRN [address] [place] [address] DR HEMATOLOGY AND ONCOLOGY [place], [place] [id number] documented as of this encounter Procedures Procedure Name Priority Date/Time Associated Diagnosis Comments CT ABDOMEN AND PELVIS WO CONTRAST STAT 10/22/2023 4:47 AM EST HEMOGRAM Routine 10/22/2023 12:50 AM EST DIFFERENTIAL, AUTOMATED Routine 10/22/19 12:50 AM EST CBC (WITH DIFF) Routine 10/22/2023 12:50 AM EST PHOSPHORUS Routine 10/22/2023 12:50 AM EST MAGNESIUM Routine 10/22/2023 12:50 AM EST BASIC METABOLIC PANEL Routine 10/22/2023 12:50 AM EST XR FLUORO NO RAD <1HR - OR USE Routine 10/21/2023 5:06 PM EST KIDNEY STONE ANALYSIS Routine 10/21/2023 4:51 PM EST KIDNEY STONE ANALYSIS Routine 10/21/2023 4:47 PM EST ANAEROBIC CULTURE Routine 10/21/2023 3:2 5 PM EST HC TISSUE CULTURE Routine 10/21/2023 3:2 5 PM EST TISSUE CULTURE Routine 10/21/2023 3:25 PM EST URINE CULTURE Routine 10/21/2023 2:10 PM EST Cystoscopy, Remv Calculus, Simple ([id number]) 10/21/2023 12:35 PM EST RIGHT STONE Ultrasonic Guidance, Intraoperative ([id number]) 10/21/2023 12:35 PM EST RIGHT STONE Plmt Nephrostomy Cath Prq New Access Rs&I ([id number]) 10/21/2023 12:35 PM EST RIGHT STONE Cysto W Ureteroscopy &/Or Pyeloscopy, Dx ([id number]) 10/21/2023 12:35 PM EST RIGHT STONE Cysto/Uretero/Pyeloscop y, Calculus Tx ([id number]) 10/21/2023 12:35 PM EST RIGHT STONE Perq Nl/Pl Lithotripsy Complex >2 Cm Color Card Maker Locations ([id number]) 10/21/2023 12:35 PM EST RIGHT STONE URINE CULTURE Routine 10/21/2023 9:48 AM EST ABORH RECHECK STATUS Routine 10/21/2023 9:45 AM EST TYPE AND SCREEN, SDP (FUTURE SURGERY, [facility] [place] SAME DAY PROGRAM ONLY) STAT 10/21/2023 9:45 AM EST IMPLANTABLE DEVICES SCAN 10/21/2023 12:00 AM EST documented in this encounter Results * CT Abdomen & Pelvis wo Contrast (10/22/2023 4:47 AM EST) Anatomical Region Laterality Modality Abdomen, Pelvis Computed Tomogra phy Impressions 10/22/2023 7:24 AM EST Status post bilateral lithotripsy with residual fragmented renal calculi within the bilateral collecting systems. Preliminary report signed by: Carmelita Sow at 10/22/2023 6:12 AM I have personally reviewed the image(s) and the resident's interpretation and agree with the findings, Damian Duggan MD at 10/22/2023 7:24 AM Thank you for letting us participate in the care of this patient. ??If you are a health care provider and have any questions regarding this report, please contact the number below. ??For patients who have questions please contact the health point of care specialist that requested your imaging first. ? Narrative 10/22/2023 7:24 AM EST EXAMINATION: CT ABDOMEN AND PELVIS WO CONTRAST CLINICAL HISTORY: nephrolithiasis s/p right PCNL to evaluate post-op stone burden TECHNIQUE: Helical CT of the abdomen and pelvis without intravenous contrast. Oral contrast was not administered. Multiplanar reformatted images were generated. COMPARISON: 09/06/2023 FINDINGS: The absence of intravenous contrast limits the evaluation of solid viscera and vasculature. Lower chest: Mixed consolidation and groundglass opacity dependent left lower lobe. Bronchial wall thickening left base dependently. Heart size within normal limits. No pericardial effusion.. Liver: Normal size and attenuation. Stable subcentimeter cyst in the inferior right hepatic lobe. Bile ducts: Nondilated. Gallbladder: Unchanged calcified gallstone. Normal caliber wall. Pancreas: Normal attenuation without ductal dilatation. Spleen: Normal size. Adrenals: Limited evaluation of known right adrenal nodule. Right kidney/ureter: Unchanged double-J ureteral stent. Interval placement of percutaneous nephrostomy tube. Several locules of air within the renal parenchyma. Decreased stone burden with residual 3 mm calculus in the upper pole. No hydronephrosis. Left kidney/ureter: Unchanged double-J ureteral stent. Residual scattered renal calculi within the calyces. Left upper pole complex cystic mass with calcified septa. Nonspecific by this exam. Similar to prior exams. No hydronephrosis. Urinary Bladder: No bladder or proximal urethral calculi. ??Decompressed with Giraldo in place. Vasculature: Unchanged bilobed saccular infrarenal aortic aneurysm and left common iliac artery. Maximum dimension of 5.1 cm is similar to prior exam of 09/06/2023 when measured in the same orientation and location. Lymph Nodes: No enlarged lymph nodes. Bowel: Nondilated, no wall thickening. ?? Peritoneum and retroperitoneum: Moderate volume pelvic free fluid. No loculated fluid collection. No pneumoperitoneum. No mesenteric inflammation. Abdominal wall: Normal. Reproductive organs: Fiducials within the prostate. Osseous structures: Advanced degenerative changes of the thoracolumbar spine including T12 superior endplate fracture deformity, unchanged Procedure Note Damian Duggan MD - 10/22/2023 EXAMINATION: CT ABDOMEN AND PELVIS WO CONTRAST CLINICAL HISTORY: nephrolithiasis s/p right PCNL to evaluate post-opstone burden TECHNIQUE: Helical CT of the abdomen and pelvis without intravenouscontrast. Oral contrast was not administered. Multiplanar reformatted images were generated. COMPARISON: 09/06/2023 FINDINGS: The absence of intravenous contrast limits the evaluation of solid visceraand vasculature. Lower chest: Mixed consolidation and groundglass opacity dependent leftlower lobe. Bronchial wall thickening left base dependently. Heart size within normal limits. No pericardial effusion.. Liver: Normal size and attenuation. Stable subcentimeter cyst in theinferior right hepatic lobe. Bile ducts: Nondilated. Gallbladder: Unchanged calcified gallstone. Normal caliber wall. Pancreas: Normal attenuation without ductal dilatation. Spleen: Normal size. Adrenals: Limited evaluation of known right adrenal nodule. Right kidney/ureter: Unchanged double-J ureteral stent. Interval placementof percutaneous nephrostomy tube. Several locules of air within the renal parenchyma. Decreased stone burden with residual 3 mm calculus in theupper pole. No hydronephrosis. Left kidney/ureter: Unchanged double-J ureteral stent. Residual scatteredrenal calculi within the calyces. Left upper pole complex cystic mass withcalcified septa. Nonspecific by this exam. Similar to prior exams. Nohydronephrosis. Urinary Bladder: No bladder or proximal urethral calculi. Decompressedwith Giraldo in place. Vasculature: Unchanged bilobed saccular infrarenal aortic aneurysm andleft common iliac artery. Maximum dimension of 5.1 cm is similar to prior examof 09/06/2023 when measured in the same orientation and location. Lymph Nodes: No enlarged lymph nodes. Bowel: Nondilated, no wall thickening. Peritoneum and retroperitoneum: Moderate volume pelvic free fluid. Noloculated fluid collection. No pneumoperitoneum. No mesenteric inflammation. Abdominal wall: Normal. Reproductive organs: Fiducials within the prostate. Osseous structures: Advanced degenerative changes of the thoracolumbarspine including T12 superior endplate fracture deformity, unchanged IMPRESSION Status post bilateral lithotripsy with residual fragmented renal calculiwithin the bilateral collecting systems. Preliminary report signed by: Carmelita Sow at 10/22/2023 6:12 AM I have personally reviewed the image(s) and the resident's interpretationand agree with the findings, Dmaian Duggan MD at 10/22/2023 7:24 AM Thank you for letting us participate in the care of this patient. If youare a health care provider and have any questions regarding this report,please contact the number below. For patients who have questions please contactthe health point of care specialist that requested your imaging first. Jonn Navarrete Jr., MD IMG CT ORDERABLES * (ABNORMAL) Differential, Automated (10/22/2023 12:50 AM EST) Neutrophil % 94.1 % [facility] Neutrophil Absolute 15.28(H) 1.70 - 6.10 x10(3)/mc L [facility] Lymph % 3.3 % [facility] Lymphocytes Abs 0.5(L) 0.9 - 3.2 x10(3)/mc L [facility] Monocyte % 1.9 % [facility] Monocyte Abs 0.3 0.3 - 0.9 x10(3)/mc L [facility] Eos % 0.1 % [facility] Eosinophils Abs 0.0 0.0 - 0.4 x10(3)/ L [facility] Basophil % 0.1 % [facility] Baso Absolute 0.0 0.0 - 0.1 x10(3)/mc L [facility] Immature Gran % 0.50 % [facility] Comment: Immature granulocytes(IG's)percentage and absolute count will include metamyelocytes, myelocytes, and promyelocytes. Blood smears from CBCs yielding IG's will be scanned manually for concordance. If this scan disagrees with the automated IG or if promyelocytes are noted, a manual differential will be performed. Immature Gran Absolute 0.08(H) 0.00 - 0.04 x10(3)/mc L [facility] Blood 10/22/2023 12:5 0 AM EST 10/22/2023 1:02 AM EST Narrative Resulting Agency Comment Spec In Lab Maycol Caruso MD HEMATOLOGY ORDERABLE S [facility] [place] [address] * (ABNORMAL) Hemogram (10/22/2023 12:50 AM EST) White Blood Cell 16.2(H) 4.0 - 9.5 x10(3)/mc L [facility] Red Blood Cell 4.02(L) 4.58 - 5.54 x10(6)/ L [facility] Hemoglobin 12.3(L) 13.7 - 16.5 g/dL [facility] Hematocrit 37.7(L) 40.5 - 48.5 % [facility] Mean Cell Volume 93.8(H) 82.9 - 93.1 fL [facility] Mean Cell Hemoglobin 30.6 27.5 - 32.1 pg [facility] Mean Cell Hemoglobin Concentration 32.6 32.0 - 35.7 g/dL [facility] Platelet 276 145 - 357 x10(3)/mc L [facility] RDW Standard Deviation 46.9(H) 36.0 - 45.0 fL [facility] RDW coefficient of variation 13.6 11.4 - 13.8 % [facility] Mean Platelet Volume 8.8 7.6 - 12.9 fL [facility] NRBC% auto 0.0 % [facility] NRBC Absolute 0.000 0.000 - 0.000 x10(3)/ L [facility] Blood 10/22/2023 12:5 0 AM EST 10/22/2023 1:02 AM EST Narrative Resulting Agency Comment Spec In Lab Maycol Caruso MD HEMATOLOGY ORDERABLE S Performing Organization Address City/State/[facility] Co de Phone Number [facility] [place] [address] * (ABNORMAL) Basic Metabolic Panel (non-fasting) (10/22/2023 12:50 AM EST) Glucose 211(H) 65 - 199 mg/dL [facility] Comment:Diabetes: >=200 mg/d L plus symptoms Blood Urea Nitrogen 14 10 - 20 mg/dL [facility] Creatinine 0.74(L) 0.80 - 1.50 mg/dL [facility] Sodium 138 135 - 145 mmol/L [facility] Potassium 4.5 3.5 - 5.0 mmol/L [facility] Comment: Please note: ??Patients with WBC >100,000 may have falsely elevated Potassium levels. ??For accurate Potassium quantification in these patients send serum separator tube (gold top) for subsequent determinations. ??Contact the Clinical Chemistry Laboratory if there are any questions. Chloride 103 98 - 107 mmol/L [facility] Carbon Dioxide 26 22 - 31 mmol/L [facility] Anion Gap 9 5 - 15 mmol/L [facility] Calcium 9.3 8.5 - 10.5 mg/dL [facility] Est Glomerular Filtration Rate 93 >=60 mL/min/1. 73 m?? [facility] Comment: This patient's estimated GFR was calculated using the 2020 CKD-EPI equation. The estimated GFR can vary from the measured GFR by up to 30% in the absence of rapidly changing kidney function. Assessment of the estimated GFR is not appropriate when creatinine concentrations are rapidly changing. For clinical situations in which a more precise estimate of GFR is necessary, consider alternative methods of GFR estimation such as a 24-hour urine creatinine clearance. Assignment of CKD stage 1-5 for patients with an eGFR near the transition point between stages may be based on clinical assessment of muscle mass and symptoms in addition to eGFR. Blood 10/22/2023 12:5 0 AM EST 10/22/2023 1:02 AM EST Narrative Resulting Agency Comment Spec In Lab Jonn Navarrete Jr., MD CHEMISTRY ORDERABL ES Performing Organization Address City/[facility]/ZIP Co de Phone Number [facility] [place] [address] * Magnesium (10/22/2023 12:50 AM EST) Magnesium 0.82 0.69 - 1.07 mmol/L [facility] Blood 10/22/2023 12:5 0 AM EST 10/22/2023 1:02 AM EST Narrative Resulting Agency Comment Spec In Lab Jonn Navarrete Jr., MD CHEMISTRY ORDERABL ES Performing Organization Address City/[facility]/ZIP Co de Phone Number [facility] [place] [address] * Phosphorus (10/22/2023 12:50 AM EST) Phosphorus 3.7 2.5 - 4.5 mg/dL [facility] Blood 10/22/2023 12:5 0 AM EST 10/22/2023 1:02 AM EST Narrative Resulting Agency Comment Spec In Lab Jonn Navarrete Jr., MD CHEMISTRY ORDERABL ES [facility] [place] [address] * XR Fluoro No Rad <1Hr - OR Use (10/21/2023 5:06 PM EST) Narrative Dicom, Auditing User - 10/21/2023 5:09 PM EST This exam is auto-finalizing. No interpretation was done. Jonn Navarrete Jr., MD IMG FLUORO ORDERAB LES * Kidney Stone Analysis (10/21/2023 4:51 PM EST) Kidney Stone Analysis (MAY) Test ? Result ?Flag ??Unit ??RefValue ------- Kidney Stone Analysis ??Source: ?Right Renal ??Stone Interpretation ? SEE COMMENTS ?40% Calcium oxalate monohydrate. 30% Calcium oxalate ?dihydrate. ??30% Calcium phosphate (apatite). ??Result Comment ? SEE COMMENTS ?For stones containing calcium oxalate, calcium phosphate, ?and/or uric acid, a 24 hr urinary supersaturation test may ?help detect underlying risk factors for this type of stone ?formation and provide guidance for a stone prevention ?strategy. ? ---ADDITIONAL INFORMATION------- ?This test was developed and its performance characteristics ?determined by [facility] in a manner consistent with CLIA ?requirements. This test has not been cleared or approved by ?the U.S. Food and Drug Administration. ?Test Performed by: ?[facility] ?[address] [place] [address] ?Non Licensed Nuclear Plant Operator: Russel Clemons M.D. Ph.D.; CLIA# [id number] [facility] Calculus 10/21/2023 4:51 PM EST 10/22/2023 1:26 PM EST Narrative Resulting Agency Comment Spec In Lab Jonn Navarrete Jr., MD LAB SEND OUT ORDER YESSY [facility] [address] [place] [address] * Kidney Stone Analysis (10/21/2023 4:47 PM EST) Kidney Stone Analysis (MAY) Test ? Result ?Flag ??Unit ??RefValue ------- Kidney Stone Analysis ??Source: ?Left Renal ??Stone Interpretation ? SEE COMMENTS ?90% Calcium oxalate dihydrate. ??10% Calcium phosphate ?(apatite). ??Result Comment ? SEE COMMENTS ?For stones containing calcium oxalate, calcium phosphate, ?and/or uric acid, a 24 hr urinary supersaturation test may ?help detect underlying risk factors for this type of stone ?formation and provide guidance for a stone prevention ?strategy. ? ---ADDITIONAL INFORMATION------- ?This test was developed and its performance characteristics ?determined by [facility] in a manner consistent with CLIA ?requirements. This test has not been cleared or approved by ?the U.S. Food and Drug Administration. ?Test Performed by: ?[facility] ?[address] [place] [address] ?Non Licensed Nuclear Plant Operator: Russel Clemons M.D. Ph.D.; CLIA# [id number] [facility] Calculus 10/21/2023 4:47 PM EST 10/22/2023 1:26 PM EST Narrative Resulting Agency Comment Spec In Lab Jonn Navarrete Jr., MD LAB SEND OUT ORDER YESSY [facility] [place] [address] * Anaerobic Culture (10/21/2023 3:25 PM EST) Anaerobic Culture No anaerobic organisms isolated [facility] Kidney 10/21/2023 3:25 PM EST 10/21/2023 4:44 PM EST Comment:Right Kidney Stone f or culture Narrative Resulting Agency Comment Spec In Lab Jonn Navarrete Jr., MD MICROBIOLOGY - GEN ERAL ORDERABLES Performing Organization Address [facility] Co de Phone Number [facility] [place] [address] * (ABNORMAL) Tissue culture (10/21/2023 3:25 PM EST) Tissue Culture Many Rivera parapsilosis(A) [facility] Gram Stain No Neutrophils seen. No microorganisms seen. (A) [facility] Organism Rivera parapsilosis(A) [facility] Kidney 10/21/2023 3:25 PM EST 10/21/2023 4:44 PM EST Comment:Right Kidney Stone f or culture Narrative Resulting Agency Comment Spec In Lab Jonn Navarrete Jr., MD MICROBIOLOGY - GEN ERAL ORDERABLES Performing Organization Address [facility] Co de Phone Number [facility] [place] [address] * (ABNORMAL) Urine culture Cystoscopic Urine (10/21/2023 2:10 PM EST) Urine Culture 1,000-9,000 cfu/ml Rivera parapsilosi s(A) [facility] Organism Rivera parapsilosi s(A) [facility] Cystoscopic Urine 10/21/2023 2:10 PM EST 10/21/2023 3:02 PM EST Comment:Bladder Urine for Cu lture Narrative Resulting Agency Comment Spec In Lab Jonn Navarrete Jr., MD MICROBIOLOGY - GEN ERAL ORDERABLES Performing Organization Address [facility] Co de Phone Number [facility] [place] [address] * (ABNORMAL) Urine culture (10/21/2023 9:48 AM EST) Urine Culture 50,000-99,000 cfu/ml mixed mucosal stefania 50,000-99,000 cfu/ml Gram Negative organisms Note: Culture shows multiple bacterial species suggesting mucosal contamination. (A) [facility] Urine 10/21/2023 9:48 AM EST 10/21/2023 10:35 AM EST Narrative Resulting Agency Comment Spec In Lab Jonn Navarrete Jr., MD MICROBIOLOGY - GEN ERAL ORDERABLES Performing Organization Address [facility] Co de Phone Number [facility] [place] [address] * ABORH Recheck Status (10/21/2023 9:45 AM EST) ABORH Type Recheck Completed [facility] Blood 10/21/2023 9:45 AM EST 10/21/2023 9:56 AM EST Narrative Resulting Agency Comment Spec In Lab Jonn Navarrete Jr., MD BLOOD BANK LAB ORD ERABLES Performing Organization Address [facility] de Phone Number [place] [address] * Type and Screen Future Surgery, [facility] SAME DAY PROGRAM ONLY) (10/21/2023 9:45 AM EST) ABORH Type A POSITIVE [facility] Patient BB History Found [facility] Expires at 2359 on: 10-24-2023 [facility] Ab Screen Interp Negative [facility] Blood 10/21/2023 9:45 AM EST 10/21/2023 9:45 AM EST Narrative Resulting Agency Comment Spec In Lab Jonn Navarrete Jr., MD BLOOD BANK LAB ORD ERABLES Performing Organization Address [facility] Co de Phone Number [facility] [address] * SCAN DOC: IMPLANTABLE DEVICES (10/21/2023 12:00 AM EST) Narrative 10/21/2023 12:00 AM EST Ordered by an unspecified provider. Scanning Provider MEDIA MGR SCAN EXT O RDR/RSLT documented in this encounter Visit Diagnoses Diagnosis Nephrolithiasis- Primary Calculus of kidney documented in this encounter Admitting Diagnoses Diagnosis Nephrolithiasis Calculus of kidney documented in this encounter Administered Medications Inactive Administered Medications - up to 3 most recent administrations Medication Order MAR Action Action Date Dose Rate Site acetaminophen (Tylenol) tablet 650 mg 650 mg, Oral, EVERY 4 HOURS PRN, Starting on Brisa 10/21/23 at 1741, Until Wed10/22/23 at 2019, Pain, for MILD pain (1-3), Maximum dose of acetaminophen is 4,000 mg from all sources in 24 hours. When ordered for pain, acetaminophen should be given even when other ordered pain medications are indicated., Routine Given 10/21/2023 6:28 PM EST 650 mg cephALEXin (Keflex) capsule 500 mg 500 mg, Oral, 3 TIMES DAILY, First dose on Brisa 10/21/23 at 2115, Until Discontinued, Routine, Indication for (Active or Suspected): Urinary Tract/Pyelonephritis Given 10/22/2023 4:34 PM EST 500 mg Given 10/22/2023 9:23 AM EST 500 mg Given 10/21/2023 9:15 PM EST 500 mg lacosamide (Vimpat) tablet 200 mg 200 mg, Oral, 2 TIMES DAILY, First dose on Brisa 10/21/23 at 2115, Until Discontinued, Tablets may be split or crushed. Given 10/22/2023 1:49 PM EST 200 mg Given 10/21/2023 10:14 PM EST 200 mg lactated ringers infusion 50 mL/hr, Intravenous, CONTINUOUS, Starting on Brisa 10/21/23 at 1800, Until Wed10/22/23 at 1303, Recovery (Recovery-Hospital Unit) New Bag 10/21/2023 5:49 PM EST 50 mL/hr 50 mL/ hr melatonin tablet 3 mg 3 mg, Oral, NIGHTLY, First dose on Brisa 10/21/23 at 2115, Until Discontinued, Routine Given 10/21/2023 9:30 PM EST 3 mg senna-docusate (Pericolace) 8.6-50 mg per tablet 2 tablet 2 tablet, Oral, 2 TIMES DAILY, First dose on Brisa 10/21/23 at 2115, Until Discontinued, Hold for loose stool. , Routine Given 10/22/2023 9:23 AM EST 2 tablets Given 10/21/2023 9:30 PM EST 2 tablets sodium chloride 0.9 % (flush) (BD PosiFlush Normal Saline 0.9) flush 5 mL 5 mL, Intravenous, 2 TIMES DAILY, First dose on Brisa 10/21/23 at 2100, Until Discontinued, Recovery (Recovery-Hospital Unit), Routine Given 10/22/2023 9:00 AM EST 5 mLs Given 10/21/2023 9:31 PM EST 5 mLs tamsulosin (Flomax) capsule 0.8 mg 0.8 mg, Oral, DAILY, First dose on Wed10/22/23 at 0900, Until Discontinued, DO NOT CRUSH OR CHEW, Routine Given 10/22/2023 9:23 AM EST 0.8 mg documented in this encounter Active and Recently Administered Medications Times are shown in EST. Scheduled Medication Order 10/20/2023 10/21/2023 10/22/2023 atorvastatin (Lipitor) tablet 80 mg 80 mg, Oral, DAILY, First dose on Wed10/22/23 at 0900, Until Discontinued, Routine 09 (Not Given - Provider: Tanvi Gant RN - Reason: Patient/family refused) ceFAZolin (Ancef) 2 g vial attach to sodium chloride 0.9% 100 mL Mini-Bag Plus (COMPLETED) 2 g, Intravenous, INFORMATION SYSTEMS COORDINATOR TO O.R., 1 dose, On Brisa 10/21/23 at 1045, Administer over 30 Minutes, Day of Surgery (Day of Procedure), Indication for (Active or Suspected): Prophylaxis 1307 (New Bag - Provider: Oriana Guzman CRNA) cephALEXin (Keflex) capsule 500 mg 500 mg, Oral, 3 TIMES DAILY, First dose on Brisa 10/21/23 at 2115, Until Discontinued, Routine, Indication for (Active or Suspected): Urinary Tract/Pyelonephritis 2114 (Given - Provider: Mojgan Montemayor RN - Comment: can not be scanned) 09 (Given - Provider: Tanvi Gant RN)1634 (Given - Provider: Tanvi Gant RN) fluconazole (Diflucan) 400 mg in sodium chloride 0.9% 200 mL infusion (COMPLETED) 400 mg, Intravenous, INFORMATION SYSTEMS COORDINATOR TO O.R., 1 dose, On Brisa 10/21/23 at 1045, Administer over 120 Minutes, Day of Surgery (Day of Procedure), Indication for (Active or Suspected): Prophylaxis, Restricted Antibiotic: Please indicate the most appropriate choice: Pre-approved indication (state the indication in comments field) 1323 (Given - Provider: Oriana Guzman CRNA) lacosamide (Vimpat) tablet 200 mg 200 mg, Oral, 2 TIMES DAILY, First dose on Wed10/21/23 at 211, Until Discontinued, Tablets may be split or crushed. 2213 (Given - Provider: Meng Bermeo RN) 1156 (Not Given - Provider: Tanvi Gant RN - Reason: Patient/family refused - Comment: Got med from [facility], pt declined)1349 (Given - Provider: Tanvi Gant RN - Comment: Pt requested med.) LORazepam (Ativan) (2 mg/mL) injection syringe 1 mg 1 mg, Intravenous, ONCE, 1 dose, On Wed10/22/23 at 1515, Routine 151 (Not Given - Provider: Tanvi Gant RN - Reason: See comment - Comment: No longer indicated) melatonin tablet 3 mg 3 mg, Oral, NIGHTLY, First dose on Wed10/21/23 at 2115, Until Discontinued, Routine 2129 (Given - Provider: Mojgan Montemayor RN) senna-docusate (Pericolace) 8.6-50 mg per tablet 2 tablet 2 tablet, Oral, 2 TIMES DAILY, First dose on Wed10/21/23 at 2115, Until Discontinued, Hold for loose stool. , Routine 2129 (Given - Provider: Mojgan Montemayor RN) 0923 (Given - Provider: Tanvi Gant RN) sodium chloride 0.9 % (flush) (BD PosiFlush Normal Saline 0.9) flush 5 mL 5 mL, Intravenous, 2 TIMES DAILY, First dose on Wed10/21/23 at 2100, Until Discontinued, Recovery (Recovery-Hospital Unit), Routine 2130 (Given - Provider: Mojgan Montemayor RN) 0900 (Given - Provider: Taniv Gant RN) tamsulosin (Flomax) capsule 0.8 mg 0.8 mg, Oral, DAILY, First dose on Wed10/22/23 at 0900, Until Discontinued, DO NOT CRUSH OR CHEW, Routine 0923 (Given - Provid er: Tanvi Gant RN) Continuous Medication Order 10/20/2023 10/21/2023 10/22/2023 lactated ringers infusion (CANCELED) 50 mL/hr, Intravenous, CONTINUOUS, Starting on Brisa 10/21/23 at 1800, Until Wed10/22/23 at 1303, Recovery (Recovery-Hospital Unit) 1749 (New Bag - Provider: Loretta Thomson RN) 1303 (Stopped - Provider: Tanvi Gant RN) PRN Medication Order 10/20/2023 10/21/2023 10/22/2023 acetaminophen (Tylenol) tablet 650 mg 650 mg, Oral, EVERY 4 HOURS PRN, Starting on Brisa 10/21/23 at 1741, Until Wed10/22/23 at 2019, Pain, for MILD pain (1-3), Maximum dose of acetaminophen is 4,000 mg from all sources in 24 hours. When ordered for pain, acetaminophen should be given even when other ordered pain medications are indicated., Routine 1828 (Given - Provider: Loretta Thomson RN) BUpivacaine (pf) (Marcaine) (5 mg/mL) 0.5% injection (CANCELED) PRN, Starting on Brisa 10/21/23 at 1702, Until Wed10/22/23 at 2019, Intra-Operative (Intra-Procedure), Routine 1702 (Given - Provider: Chris Navarrete Jr., MD) iohexoL (Omnipaque) (300 mg/mL) solution (CANCELED) PRN, Starting on Brisa 10/21/23 at 1540, Until Wed10/22/23 at 2019, Intra-Operative (Intra-Procedure), Routine 1540 (Given - Provider: Chris Navarrete Jr., MD - Comment: Placed 100 ml on the sterile field; the surgeon will dilute with 0.9% Normal Saline 50:50 before use, as needed) lidocaine (Xylocaine) 1% (10 mg/mL) injection 3 mg 3 mg (0.3 mL), Subcutaneous, ONCE PRN, 1 dose, Starting on Brisa 10/21/23 at 1740, Until Wed10/22/23 at 2019, for discomfort with PIV insertion, Recovery (Recovery-Hospital Unit), Routine lidocaine-EPINEPHrine (1% - 1:100,000) injection (CANCELED) PRN, Starting on Brisa 10/21/23 at 1702, Until Wed10/22/23 at 2019, Intra-Operative (Intra-Procedure), Routine 1702 (Given - Provider: Chris Navarrete Jr., MD) oxyCODONE (Roxicodone) tablet 5 mg 5 mg, Oral, EVERY 6 HOURS PRN, Starting on Brisa 10/21/23 at 1741, Until Wed10/22/23 at 2019, Pain, for MODERATE pain (4-6), For pain not relieved by ibuprofen or acetaminophen - if ordered., Routine sodium chloride 0.9 % (flush) (BD PosiFlush Normal Saline 0.9) flush 5-20 mL 5-20 mL, Intravenous, EVERY 1 MIN PRN, Starting on Brisa 10/21/23 at 1740, Until Wed10/22/23 at 2019, flush, Flush pertains to all indwelling lines. Flush per protocol found in the job aid using the link provided on this medication record., Recovery (Recovery-Hospital Unit), Routine documented in this encounter Care Teams Poultry Offal Worker Relationship Specialty Start Date End Date Amanda Pino PA [address] [place] [address] PCP - General Internal Medicine 04/28/23 documented as of this encounter
--- OUTSIDE RECORDS SUMMARY | 2024-05-24 19:27 | XMS_ITS | Encounter Summary ---
Author Organization [facility] Address [address] [place] [address] Care Team Providers Care Personal Attendant Name Role Phone Jan Alfredo Jorge GARDNER Primary Care Provider Encounter Details Date Type Department Care Team (Late st Contact Info) Description 01/08/2021 Lab Requisition [facility] Pathology & [facility] [address] [place] [address] Son Gama MD [address] [place] [address] [phone] Encounter for other general examination Social History Tobacco Use Types Packs/Day Years Used Date Smoking Tobacco: Never Assessed Sex and Gender Information Value Date Recorded Sex Assigned at Not on file Gender Identity Not on file Sexual Orientation Not on file documented as of this encounter Plan of Treatment Not on file documented as of this encounter Procedures Procedure Name Priority Date/Time Associated Diagnosis Comments SUSCEPTIBILITY Today 01/05/2021 10:49 EDT Encounter for other general examination documented in this encounter Results * (ABNORMAL) SUSCEPTIBILITY (01/05/2021 10:49 EDT) Organism ID Acinetobacter ursingii(A) VITEK SUSCEPTIBILITY 01/10/2021 10:00 EDT [facility] Comment: Third generation cephalosporins, such as ceftazidime, ceftriaxone, and cefpodoxime, should be avoided for treatment of this organism regardless of in vitro susceptibility. Organism (organism) URINE / Unknown 01/05/2021 10:49 EDT 01/08/2021 16:07 EDT Narrative Organism Antibiotic Method Susceptibility Acinetobacter ursingii Amikacin MICRO SUSCEPTIBILITY <=8 ug/mL: Susceptible Acinetobacter ursingii Ampicillin Sulbactam MICRO SUSCEPTIBILITY <=2 ug/mL: Susceptible Acinetobacter ursingii Ciprofloxacin MICRO SUSCEPTIBILITY <=0.5 ug/mL: Susceptible Acinetobacter ursingii Meropenem MICRO SUSCEPTIBILITY 0.016 ug/mL: Susceptible Acinetobacter ursingii Piperacillin Tazobactam MICRO SUSCEPTIBILITY <=16 ug/mL: Susceptible Son Gama MD MICROBIOLOGY - GENER AL ORDERABLES [facility] [address] [place] [address] documented in this encounter Visit Diagnoses Diagnosis Encounter for other general examination documented in this encounter Care Teams Personal Attendant Relationship Specialty Start Date End Date Alfredo Montoya DO [address] [place] [address] PCP - General Internal Medicine - Primary Care 05/23/21 documented as of this encounter
--- OUTSIDE RECORDS SUMMARY | 2024-05-24 19:27 | XMS_ITS | Encounter Summary ---
Author Organization [facility] Address [facility] [place] [address] Care Team Providers Care Wood Window And Door Craftsman Name Role Phone Amanda Pino Primary Care Provider Reason for Referral * Diagnostic Test (Routine) - Closed Specialty Diagnoses / Procedures Referred By Contac t Referred To Contact Radiology Diagnoses Nephrolithiasis Procedures CT Abdomen & Pelvis wo Contrast Adan Navarrete Jr., MD [facility] [place] [address] [place] [address] Referral ID Status Reason Start Date Expiration Date V isits Requested Visits Authorized [id number] Closed Specialty Service Requested 09/06/2023 03/06/2025 1 1 Reason for Visit * Diagnostic Test (Routine) - Closed Specialty Diagnoses / Procedures Referred By Contac t Referred To Contact Radiology Diagnoses Nephrolithiasis Procedures CT Abdomen & Pelvis wo Contrast Adan Navarrete Jr., MD [facility] [place] [place] [address] [address] [place] [address] Referral ID Status Reason Start Date Expiration Date V isits Requested Visits Authorized [id number] Closed Specialty Service Requested 09/06/2023 03/06/2025 1 1 Encounter Details Date Type Department Care Team (Latest Contact Info) Description 09/06/2023 12:03 PM EST - 09/06/2023 11:59 PM EST Hospital [place] [phone] Adan Navarrete Jr., MD [facility] [place] [address] Nephrolithiasis Discharge Disposition: Home Social History Tobacco Use Types Packs/Day Years Used Date Smoking Tobacco: Every Day Cigarettes 1 60.8 Started: 1963 Smokeless Tobacco: Never Comments:rolls on cigarettes smokes less then 20 a day Alcohol Use Standard Drinks/Week Comments Not Currently 0 (1 standard drink = 0.6 oz pure alcohol) 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 [facility] Inpatient Questions Answer Date Recorded Does Anyone [...] on file documented as of this encounter Medications at Time of Discharge [...] Take 80 mg by mouth daily. 10/04/2019 mirtazapine (Remeron) 15 mg Tablet TAKE ONE-HALF TABLET BY MOUTH AT BEDTIME FOR DEPRESSION/MOOD 09/29/2021 11/11/2023 documented as of this encounter Plan of Treatment Upcoming Encounters Date Type Department Care Team (Late st Contact Info) Description 11/09/2024 10:30 AM EDT Office Visit Radiation Oncology at [address] [phone] Taya De La Vega PA [facility] DR [place] [address] 11/13/2024 2:00 PM EDT Office Visit Hematology/Oncology at [address] [phone] Kirt Kennedy MD [facility] DR [place] [address] Alem Lazaro APRN [address] [place] [address] DR HEMATOLOGY [place] [address] documented as of this encounter Procedures Procedure Name Priority Date/Time Associated Diagnosis Comments CT ABDOMEN AND PELVIS WO CONTRAST Routine 09/06/2023 12:48 PM EST Nephrolithiasis documented in this encounter Results * (ABNORMAL) CT Abdomen & Pelvis wo Contrast (09/06/2023 12:48 PM EST) Anatomical Region Laterality Modality Abdomen, Pelvis Computed Tomogra phy Impressions 09/06/2023 2:53 PM EST 1. ??Bilateral double-J ureteral stents. ??Bilateral hyperdense material in the renal calyces, are most suggestive with fragmented stones status post lithotripsy. ??No hydronephrosis. 2. 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 ??Unexpected finding: Sub-6 mm right lower lobe subpleural nodule is indeterminate. ??Given patient's clinical history, attention on follow-up is recommended. 4. ??No suspicious osseous lesion. 5. ??Refer to above for other stable ancillary findings. I have personally reviewed the image(s) and the resident's interpretation and agree with the findings, Toby Smith MD at 09/06/2023 2:53 PM Thank you for letting us participate in the care of this patient. ??If you are a health care provider and have any questions regarding this report, please contact the number below. ??For patients who have questions please contact the health director of career resources that requested your imaging first. ? Electronically signed by: Toby Smith MD, [facility] ([phone]), at 09/06/2023 2:53 PM Narrative 09/06/2023 2:53 PM EST EXAMINATION: CT ABDOMEN AND PELVIS WO CONTRAST CLINICAL HISTORY: Urinary tract stone, symptomatic/complicated TECHNIQUE: Helical CT of the abdomen and pelvis without intravenous contrast. Oral contrast was not administered. Multiplanar reformatted images were generated. COMPARISON: CT abdomen without contrast 02/18/2021 FINDINGS: The absence of intravenous contrast limits the evaluation of solid viscera and vasculature. Lower chest: Sub-6 mm pulmonary nodule along the peripheral right upper lobe (series 3 image 9), new from the prior. No pleural effusions. ??Normal heart size. Coronary artery calcifications. Liver: Normal size. ??An seen is diffusely increased attenuation of the liver (greater than 70 Hounsfield units). ??Along the inferior margin of the hepatic lobe, stable cyst (series 3 image 44), measures 8 mm. Bile ducts: Nondilated. Gallbladder: Contracted gallbladder with large 1.3 cm calcified gallstone within the body. Normal wall thickness. Pancreas: Normal attenuation without ductal dilatation. Spleen: Normal size. Adrenals: Limited evaluation of known 1 cm right adrenal nodule. Right kidney/ureter: Double-J ureteral stent in satisfactory position. ??Multiple small hypodensities, within the renal calyces, likely represents fragmented stone status post lithotripsy.No hydronephrosis. Left kidney/ureter: The ureteral stent in satisfactory position. ??Densities, within the renal pelvis, likely represents fragment stone status post lithotripsy. ??No hydronephrosis Cortical cyst with central area of calcification in the posterolateral left interpolar kidney demonstrates simple fluid density, stable size measuring 3.6 cm x 3.2 cm, unchanged Urinary Bladder: There is thickening of the posterior bladder wall. ??Similar calcifications on the posterior wall. No visualized bladder calculi. Vasculature: Diffuse atherosclerotic calcifications. ??Bilobed saccular appearing infrarenal aortic aneurysm measuring 8.2 cm in craniocaudal dimension (series 601 image 45), and measures 4.5 cm in maximal caliber of the upper portion, and 3.7 cm small caliber along its inferior portion unchanged Aneurysmal dilatation of the distal left common iliac artery 1.5 cm, unchanged. Lymph Nodes: No enlarged lymph nodes. Bowel: Nondilated, no wall thickening. . Peritoneum and retroperitoneum: No free fluid or loculated fluid collection. No pneumoperitoneum. No mesenteric inflammation. ??Stable soft tissue thickening, of the presacral area, which is presumably posttreatment/radiation changes. Abdominal wall: Normal. Reproductive organs: Brachytherapy fiducial markers are present in the prostate. Osseous structures: Diffuse qualitative osteopenia. ??No suspicious osseous lesion or acute abnormality. ??Stable T12 anterior wedge deformity of a 30% loss of vertebral body height, stable no new compression deformities. ??Advanced lumbar spondylosis, with advanced degenerative disc disease, at L2-L3 and L3-L4. ??Trace retrolisthesis of L3 on L4. Resulting Agency Comment Unexpected Finding Adan Navarrete Jr., MD IMG CT ORDERABLES documented in this encounter Visit Diagnoses Diagnosis Nephrolithiasis Calculus of kidney documented in this encounter Care Teams Wood Window And Door Craftsman Relationship Specialty Start Date End Date Amanda Pino PA [address] [place] [address] PCP - General Internal Medicine 04/28/23 documented as of this encounter
--- OUTSIDE RECORDS SUMMARY | 2024-05-24 19:27 | XMS_ITS | Encounter Summary ---
Author Organization [facility] [place] [address] Care Team Providers Care Engineering Documentation Specialist Name Role Phone Amanda Pino Primary Care Provider [phone] Encounter Details Date Type Department Care Team (Late st Contact Info) Description 10/15/2023 Telephone Urology at [facility] [place] [phone] Perla Vail, RN Social History Tobacco Use Types Packs/Day [...] on file documented as of this encounter Progress Notes * Perla Vail, RN - 10/15/2023 1:34 PM EST Call returned to patient and regarding gross hematuria. Patients reports that patient had an episode of blood in his urine this occurred this morning that has cleared up through out the day, denies strenuous activity recently, patient denies other urinary symptoms, patient denies nausea and flank discomfort, temp: 98.5. Patient is scheduled for right PCNL on with Dr. Navarrete. Patients confirms that patient has not been taking aspirin. Patient will repeat a urine culture today, he will go to local lab in [facility]. documented in this encounter Miscellaneous Notes * Telephone Encounter - Perla Vail RN - 10/15/2023 1:33 PM EST Copied from [facility] #[id number]. Topic: Specialty Dept CRMs - Triage >> Oct 15, 2023 12:23 PM Silvino Husam wrote: Triage Message Specialist: Adan Navarrete Jr., MD Relationship (if other than patient-full name): Kinue, Spouse Symptom: Blood in Urine Has patient experienced symptom before No If patient has experienced symptom before, when was the last time this occurred N/a Is patient currently having symptom Yes When did symptom begin This Morning Additional Comments: Patient's Spouse calling in regards to the patient having blood in urine this morning. They were looking to disucss how to handle with nurse. Please call to advise documented in this encounter Plan of Treatment Upcoming Encounters Date Type Department Care Team (Late st Contact Info) Description 11/09/2024 10:30 AM EDT Office Visit Radiation Oncology at [address] [phone] Taya De La Vega PA [facility] [place] [address] 11/13/2024 2:00 PM EDT Office Visit Hematology/Oncology at [address] [phone] Kirt Kennedy MD [facility] HEMATOLOGY [place] [address] Alem Lazaro APRN [address] [place] [address] [place] [address] documented as of this encounter Visit Diagnoses Diagnosis Nephrolithiasis Calculus of kidney documented in this encounter Care Teams Engineering Documentation Specialist Relationship Specialty Start Date End Date Amanda Pino PA [address] [place] [address] PCP - General Internal Medicine 04/28/23 documented as of this encounter
--- OUTSIDE RECORDS SUMMARY | 2024-05-24 19:27 | XMS_ITS | Encounter Summary ---
Author Organization [facility] [place] [address] Care Team Providers Care Profiling Machine Setup Operator Name Role Phone Amanda Pino Primary Care Provider [phone] Encounter Details Date Type Department Care Team (Late st Contact Info) Description 11/15/2023 Telephone Urology at [facility] [place] [phone] Donna Ramsey RN Social History Tobacco Use [...] Telephone Encounter - Donna Ramsey RN - 11/15/2023 11:38 AM EDT Faxed urine culture order to [facility] at [phone] * Telephone Encounter - Donna Ramsey RN - 11/15/2023 11:35 AM EDT Copied from [facility] #[id number]. Topic: Specialty Dept CRMs - Generic Call >> Nov 15, 2023 11:28 AM Charlotte Muñiz wrote: Specialist: Landon Relationship (if other than patient-full name): Marisol Barrientos [facility] Reason for Call: patient is at the lab, please send over urine order Urine culture (Order [id number]) documented in this encounter Plan of Treatment Upcoming Encounters Date Type Department Care Team (Late st Contact Info) Description 11/09/2024 10:30 AM EDT Office Visit Radiation Oncology at [address] [phone] Taya De La Vega PA [facility] DR [place] [address] 11/13/2024 2:00 PM EDT Office Visit Hematology/Oncology at [address] [phone] Kirt Kennedy MD [facility] DR [place] [address] Alem Lazaro APRN [address] [place] [address] DR HEMATOLOGY [place] [address] documented as of this encounter Visit Diagnoses Not on filedocumented in this encounter Care Teams Profiling Machine Setup Operator Relationship Specialty Start Date End Date Amanda Pino PA [address] [place] [address] PCP - General Internal Medicine 04/28/23 documented as of this encounter
--- OUTSIDE RECORDS SUMMARY | 2024-05-24 19:27 | XMS_ITS | Clinical Summary ---
Author Organization [facility] Address [facility] [place] [address] Care Team Providers Care Sales And Marketing Director Name Role Phone Amanda Pino Primary Care Provider [phone] Allergies Active Allergy Reactions Criticality Noted Date Comments Iodine And Iodide Containing Products Hives Medium 01/05/2020 Divalproex Other (See Comments) 02/22/2021 Thrombocytopenia and spontaneous bleeding Medications Medication Sig Dispensed Refills Start Date End Date Status atorvastatin (Lipitor) 80 mg Tablet Take 80 mg by mouth daily. 10/04/2019 Active tamsulosin (Flomax) 0.4 mg Capsule Take 0.8 mg by mouth daily. 12/17/2020 Active senna-docusate (Pericolace) 8.6-50 mg Tablet Take 1 tablet by mouth 2 times daily. 60 tablet 11 02/26/2021 Active lacosamide (Vimpat) 200 mg Tablet Take 1 tablet by mouth 2 times daily. 60 tablet 02/27/2021 Active cholecalciferol, Vitamin D3, (Vitamin D3) 1,000 unit Tablet Take by mouth. 01/05/2021 Active Lactobacillus acidophilus (PROBIOTIC ORAL) TAKE ONE TABLET BY MOUTH EVERY DAY 02/07/2021 Active melatonin 3 mg Tablet Take by mouth. Active aspirin EC 81 mg EC (DR) tablet Take 81 mg by mouth daily. Active potassium chloride ER (Klor-Con, K-Tab) 10 mEq ER tablet 10 mEq. 05/10/2023 Active alendronate sodium/vitamin D3 (ALENDRONATE-VITAMIN D3 ORAL) Take 25 mcg by mouth. 06/26/2022 Active fluconazole (Diflucan) 200 mg tablet Take 1 tablet by mouth daily. Please start taking on 11/04 for 3 days prior to your planned procedure. 3 tablet 11/02/2023 Active Active Problems Problem Noted Date Diagnosed Date Nephrolithiasis 10/21/2023 Severe protein-calorie malnutrition 02/25/2021 Overview (02/25/2021): Protein-calorie Malnutrition: >20% weight loss in 1 year, Severe subcutaneous fat loss and Severe lean muscle loss is consistent with severe protein-calorie malnutrition in the setting of chronic illness (Serina gonzalez al, JPEN J Parenteral Enteral Nutr. 2011; 36(3): 273-83) Trauma 02/18/2021 Brain aneurysm 09/09/2020 Intracranial bleed 09/02/2020 Overview (11/07/2020): Treated in [place] for brain aneurism Malignant neoplasm of prostate [...] further evaluation with ultrasound. Watch and wait. Encounters Date Type Department Care Team Description 05/11/2024 10:00 AM EDT Office Visit Radiation Oncology at [address] [phone] Taya De La Vega PA Malignant neoplasm of prostate (Primary Dx); S/P radiotherapy 05/11/2024 Travel from Last 3 Months Family History Medical History Relation Comments Prostate Cancer Father Relation Status Comments Father Social History Tobacco Use Types Packs/Day Years [...] on file Sexual Orientation Not on file Last Filed Vital Signs Vital Sign Reading Time Taken Comments Blood Pressure 126/66 05/11/2024 10:00 AM EDT Pulse 78 05/11/2024 10:00 AM EDT Temperature 36.4 ??C (97.5 ??F) 05/11/2024 10:00 AM E DT Respiratory Rate 16 05/11/2024 10:00 AM EDT Oxygen Saturation 98% 05/11/2024 10:00 AM EDT Inhaled Oxygen Concentration - - Weight 54.7 kg (120 lb 9.5 oz) 05/11/2024 10:00 AM EDT Height 177.8 cm (5' 10) 11/15/2023 2:21 PM EDT Body Mass Index 17.3 11/15/2023 2:21 PM EDT Plan of Treatment Upcoming Encounters Date Type Department Care Team (Late st Contact Info) Description 11/09/2024 10:30 AM EDT Office Visit Radiation Oncology at [address] [phone] [address] De La V[address] PA [facility] [place] [address] 11/13/2024 2:00 PM EDT Office Visit Hematology/Oncology at [address] [phone] [facility] [place] [address] Alem Lazaro APRN [address] [place] [address] [place] [address] Health Maintenance Due Date Last Done Comments Pneumoccocal Vaccine: 65+ (1 of 2 - PCV) 1951 Tetanus/Diphtheria/Pertussis Vaccines (1 - Tdap) 09/24 Zoster vaccine (1 of 2) 1995 Advance Directive 2000 Covid-19 Vaccine (1 - 2022-24 season) 2024 Influenza (Flu) vaccine (1 o f 1 - Influenza standard series) 04/23/2024 Hepatitis C Screening Completed 04/03/2015 Medical Devices Implanted Type Area Processing Technician Device Identifier Shelf Expiration Date Model / Serial / Lot Stent Ureteral [id number] Set Dbl Pgtl Tpr Tip Ptfe Hyconi ([id number]) ([employer]ore[employer]) - [id number] Implanted:Qty : 1 on 10/21/2023 by Adan Navarrete Jr., MD at [facility] IMPLANTS Right: Ureter [employer] [id number] 06/10/2026 [id number] 60 / / [id number] Stent Ureteral [id number] Dbl Pgtl Ptfe Tria ([id number]) - [id number] Implanted:Qty : 1 on 10/21/2023 by Adan Navarrete Jr., MD at [facility] IMPLANTS Left: Ureter [employer] [id number] 12/08/2025 [id number] 30 / / [id number] Explanted Type Area Processing Technician Device Identifier Shelf Expiration Date Model / Serial / Lot Stent Ureteral [id number] Dbl Pgtl Ptfe Tria ([id number]) - [id number] Implanted:Qty : 1 on 08/05/2023 by Adan Navarrete Jr., MD at [facility] Explanted:Qty : 1 on 10/21/2023 by Adan Navarrete Jr., MD at [facility] IMPLANTS Left: Ureter [employer] [id number] 01/17/2026 [id number] 20 / / [id number] Stent Ureteral [id number] Dbl Pgtl Soft Ptfe Tria ([id number]) - [id number] Implanted:Qty : 1 on 08/05/2023 by Adan Navarrete Jr., MD at [facility] Explanted:Qty : 1 on 10/21/2023 by Adan Navarrete Jr., MD at [facility] IMPLANTS Right: Ureter [employer] [id number] 02/04/2026 [id number] 20 / / [id number] Procedures Procedure Name Priority Date/Time Associated Diagnosis Comments LAB SCAN 05/04/2024 12:00 AM EDT LAB SCAN 05/02/2024 12:00 AM EDT HEPATITIS C ANTIBODY STAT 04/03/2015 3:27 PM EDT Follicular lymphoma from Last 3 Months or Most Recently Relevant to Health Maintenance Results * Scan Doc: Lab (05/04/2024 12:00 AM EDT) Only the most recent of2 resultswithin the time period is included. Narrative 05/04/2024 12:00 AM EDT Ordered by an unspecified provider. Scanning Provider MEDIA MGR SCAN EXT O RDR/RSLT * Hepatitis C Antibody (04/03/2015 3:27 PM EDT) Hepatitis C Antibody Negative Negative [facility] Blood specimen (specimen) 04/03/2015 3:27 PM EDT 04/03/2015 3:43 PM EDT Narrative Resulting Agency Comment Spec In Lab Eileen Cheung MD CHEMISTRY [facility]IS [facility] [address] from Last 3 Months or Most Recently Relevant to Health Maintenance Advance Directives Documents on File Type Date Recorded Patient Building Maintenance Mechanic Expl anation Personal Building Maintenance Mechanic 10/21/2023 11:59 AM * Attempt Cardiopulmonary Resuscitation - Inpatient (Latest Code Status on File) Date Activated Date Inactivated Comments 10/21/2023 5:40 PM 10/22/2023 8:19 PM Question Answer Comments Code Status decision made by: Patient * Attempt Cardiopulmonary Resuscitation - Inpatient Date Activated Date Inactivated Comments 02/22/2021 6:53 AM 02/26/2021 5:02 PM Question Answer Comments Code Status decision made by: Patient * Attempt Cardiopulmonary Resuscitation - Inpatient Date Activated Date Inactivated Comments 02/18/2021 11:11 PM 02/22/2021 6:53 AM Question Answer Comments Code Status decision made by: Patient Care Teams Sales And Marketing Director Relationship Specialty Start Date End Date Amanda Pino PA [address] [place] [address] PCP - General Internal Medicine 04/28/23
--- OUTSIDE RECORDS SUMMARY | 2024-05-24 19:27 | XMS_ITS | Encounter Summary ---
Author Organization [facility], Located Within [facility] [place] [address] Care Team Providers Care Oven Worker Name Role Phone Amanda Pino Primary Care Provider [phone] Encounter Details Date Type Department Care Team (Late Contact Info) Description 11/02/2023 Orders Only Hematology/Oncology at [address] [phone] Alem Lazaro APRN [address] [place] [address] [place] [address] Follicular lymphoma, unspecified grade, unspecified body region [...] AM EDT Office Visit Radiation Oncology at [address] [phone] Taya De La Vega PA [facility] DR HEMATOLOGY [place] [address] 11/13/2024 2:00 PM EDT Office Visit Hematology/Oncology at [address] [phone] Kirt Kennedy MD [facility] DR HEMATOLOGY [place] [address] Alem Lazaro APRN [address] [place] [address] DR HEMATOLOGY AND ONCOLOGY [place], [place] [id number] documented as of this encounter Visit Diagnoses Diagnosis Follicular lymphoma, unspecified grade, unspecified body region documented in this encounter Care Teams Oven Worker Relationship Specialty Start Date End Date Amanda Pino PA [address] [place] [address] PCP - General Internal Medicine 04/28/23 documented as of this encounter
--- OUTSIDE RECORDS SUMMARY | 2024-05-24 19:27 | XMS_ITS | Encounter Summary ---
Author Organization [facility]ly [facility] [place] [address] Care Team Providers Care Raw Stock Machine Loader Name Role Phone Amanda Pino Primary Care Provider [phone] Encounter Details Date Type Department Care Team (Late st Contact Info) Description 11/04/2023 Telephone Urology at [facility] [place] [phone] Perla Vail RN Social History Tobacco Use Types Packs/Day [...] of this encounter Progress Notes * Perla Vail RN - 11/04/2023 9:14 AM EDT This patient spoke to Alex Sewell RN yesterday. documented in this encounter Miscellaneous Notes * Telephone Encounter - Perla Vail RN - 11/04/2023 9:14 AM EDT Copied from [facility] #[id number]. Topic: Specialty Dept CRMs - Medication Issues >> Nov 03, 2023 2:43 PM Mary S wrote: Medication Issues Specialist Dr Navarrete Relationship (if other than patient-full name): Darrel Ruedaen, spouse DPR ON FILE Reason for call: Medication Issue (if symptom based used Triage Subtopic) Message/information for the nurse: question on when to stop Name of Medication: fluconazole (Diflucan) 200 mg tablet Issue with the medication: spouse is calling in has questions about this medication and when to stop, they do not know when the upcoming procedure will be, questions, please advise. documented in this encounter Plan of Treatment Upcoming Encounters Date Type Department Care Team (Late st Contact Info) Description 11/09/2024 10:30 AM EDT Office Visit Radiation Oncology at [address] [phone] Taya De La Vega PA [facility] DR [place] [address] 11/13/2024 2:00 PM EDT Office Visit Hematology/Oncology at [address] [phone] Kirt Kennedy MD [facility] DR [place] [address] Alem Lazaro APRN [address] [place] [address] DR HEMATOLOGY AND ONCOLOGY [place], [place] [id number] documented as of this encounter Visit Diagnoses Not on filedocumented in this encounter Care Teams Raw Stock Machine Loader Relationship Specialty Start Date End Date Amanda Pino PA [address] [place] [address] PCP - General Internal Medicine 04/28/23 documented as of this encounter
--- OUTSIDE RECORDS SUMMARY | 2024-05-24 19:27 | XMS_ITS | Encounter Summary ---
Author Organization [facility] Address [facility] [place] [address] Care Team Providers Care Order Processing Manager Name Role Phone Amanda Pino Primary Care Provider [phone] Encounter Details Date Type Department Care Team (Late st Contact Info) Description 05/11/2024 10:00 AM EDT Office Visit Radiation Oncology at [address] [phone] Taya De La Vega PA [facility] [place] [address] Malignant neoplasm of prostate (Primary Dx); S/P radiotherapy Social History Tobacco Use Types Packs/Day Years [...] 9.5 oz) 05/11/2024 10:00 AM EDT Height - - Body Mass Index 17.3 11/15/2023 2:21 PM EDT documented in this encounter Progress Notes * Taya De La Vega PA - 05/11/2024 10:00 AM EDT [facility] [place] [address] FOLLOW-UP: Patient: Narcisa Eduardo : 1945 PCP: Amanda Pino PA-C ([facility]) Urologist: Adan Navarrete Jr., MD ([facility]; last seen 09/06/23), also sees Urology at [facility] Radiation Oncologist: Que Evans MD Chief Complaint: Follow-up for 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 He initially presented with an elevated PSA (12.9 on 11/03/19). ERIKA did not reveal any nodules, per patient. TRUS biopsyon 11/23/19 showed [place] 4+3 x 1 on the left, [place] 3+4 x 3 bilaterally, and [place] 3+3 x 2 bilaterally. On 12/01/19, patient saw Dr. Thomas at the [facility], who discussed various treatment options. Patient was most interested in learning more about radiation therapy. He completed RT on 04/26/20, but declined ADT. He is currently on surveillance. 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 Last seizure was in 02/2023. He has residual memory problems, so he is accompanied by his daughter today, who helps provide a history. He follows with Neurology at [facility] (Dr. Wendie Garcia). He also has a history of follicular lymphoma, managed by Dr. Kennedy at [facility]. [facility] and is currently on surveillance with annual labs. Interval Symptoms Since Last Visit on 11/11/23: General: Feels okay today. Pain: 0/10 Fatigue/Activity Level: Watches TV. Reports decreased energy. Weight/Appetite/Diet: No recent appetite changes, continues to report decreased appetite, eats smaller portions, and only 2 meals per day. Is also relatively inactive. PCP and Nutrition are monitoring weight and diet. Respiratory: Chronic occasional cough 2/2 tobacco use. Denies SOB. Cardiovascular: Denies chest pain, palpitations, calf pain/swelling, or other peripheral edema. GI: H/o C.diff infections 2/2 antibiotics used for UTI treatment. Takes probiotic capsules. Walking/exercise and prunes encouraged with hydration for constipation. Takes Senna PRN. Denies N/V, diarrhea, melena, or hematochezia. : Has h/o chronic UTIs 2/2 poor hydration c/b urosepsis requiring catheterization. Patient and family unsure of last UTI, possibly in 09/2023. Follows with Urology for bilateral nephrolithiasis requiring ureteroscopy and stenting. Most recently underwent percutaneous nephrolithotomy on 10/21/23, follows with [place] for stent removal/exchange. No acute changes. Today, patient reports feeling like he is able to fully empty his bladder on Flomax 0.4 mg BID (prescribed by Urology). Reports nocturia 3-4 times per week, but does not have nocturia every night (unable to state how many times per night on average). Wears Depends for leakage. Denies hematuria, dysuria, difficulty initiating urination, urgency/frequency. Sexual Health: No acute concerns. Does not want to discuss further. Musculoskeletal: No acute changes. Per family, patient has generalized weakness d/t inactivity. Bone Health: Fractured left hip on 02/24/24, s/p ORIF with 3 screws. Using a walker and doing PT. Takes a Vitamin D supplement. Neurological: H/o stroke, brain bleeds, and seizures. On Vimpat 200 mg BID, last seizure in 02/2023.Follows with Neurology. Denies headaches, peripheral neuropathy. Mood: Denies new anxiety or depression. Tobacco Use: Smokes 1 PPD x 50 years. Not interested in quitting at this time. Alcohol Use: None since stroke. Social Support: , daughter. IPSS and RISHABH (patient entered, provider reviewed), last 5 values: Prostate IPSS and RISHABH(Pt Entered): last 5 values 06/17/2023 11:03 AM 11/11/2023 10:46 AM 11/11/2023 10:47 AM 05/11/2024 10:14 AM 05/11/2024 10:16 AM Prostate Today's Scores Sexual Health Inventory for Men 4 (Severe ED) 3 (Severe ED) 6 (Severe ED) 9 (Moderate ED) International Prostate Symptom Score 15 (Moderate LUTS) 18 (Moderate LUTS) 23 (Severe LUTS) Allergies: Allergies Allergen Reactions Contrast [Iodine And Iodide Containing Products] Hives Depakote [Divalproex] Other (See Comments) Thrombocytopenia and spontaneous bleeding Current Medications: Current Outpatient Medications on File Prior to Visit Medication Sig Dispense Refill aspirin EC 81 mg EC (DR) tablet Take 81 mg by mouth daily. potassium chloride ER (Klor-Con, K-Tab) 10 mEq ER tablet 10 mEq. alendronate sodium/vitamin D3 (ALENDRONATE-VITAMIN D3 ORAL) Take 25 mcg by mouth. melatonin 3 mg Tablet Take by mouth. cholecalciferol, Vitamin D3, (Vitamin D3) 1,000 unit Tablet Take by mouth. Lactobacillus acidophilus (PROBIOTIC ORAL) TAKE ONE TABLET BY MOUTH EVERY DAY lacosamide (Vimpat) 200 mg Tablet Take 1 tablet by mouth 2 times daily. 60 tablet 0 senna-docusate (Pericolace) 8.6-50 mg Tablet Take 1 tablet by mouth 2 times daily. 60 tablet 11 tamsulosin (Flomax) 0.4 mg Capsule Take 0.8 mg by mouth daily. atorvastatin (Lipitor) 80 mg Tablet Take 80 mg by mouth daily. fluconazole (Diflucan) 200 mg tablet Take 1 tablet by mouth daily. Please start taking on 11/04 for 3 days prior to your planned procedure. 3 tablet 0 No current facility-administered medications on file prior to visit. Performance Status: KPS Score ECOG Grade Definition 90-100 0 Fully active, able to carry on all pre-disease performance without restriction 70-80 1 Restricted in physically strenuous activity but ambulatory and able to carry out work of a light or sedentary nature, e.g., light house work, office work X 50-60 2 Ambulatory and capable of all selfcare but unable to carry out any work activities; up and about more than 50% of waking hours 30-40 3 Capable of only limited selfcare; confined to bed or chair more than 50% of waking hours 10-20 4 Completely disabled; cannot carry on any selfcare; totally confined to bed or chair Physical Examination: Patient Vitals for the past 24 hrs: Temp Pulse Resp BP SpO2 05/11/24 1000 36.4 ??C (97.5 ??F) 78 16 126/66 98 % Constitutional: well-groomed, mildly conversant. NAD. HEENT: normocephalic. PERRL, EOMI, sclerae anicteric, conjunctivae non-injected. Moist mucous membranes, no thrush or oral lesion. Neck: supple, trachea midline. No adenopathy. Respiratory: non-labored respirations with symmetrical expansion. Lungs CTA bilaterally. Cardiovascular: RRR without murmurs or gallops. No peripheral edema. Musculoskeletal: moving all extremities ad fátima. NEHA. No swelling or deformity. Neurologic: alert and oriented x 3. Speech clear and coherent. Cranial nerves II-XII grossly intact. Normal gait, ambulates with a walker. Skin: warm, dry, pink, intact. Psychiatric: mood is euthymic, affect is congruent. Insight and judgement are fair. Labs Reviewed This Visit: Date PSA Testosterone (240-950) Notes 11/03/19 12.9 04/26/20 Completed RT 07/16/20 3.1 399 10/24/20 1.4 309 04/17/21 0.64 10/15/21 0.30 252 04/15/22 0.23 375 10/15/22 0.17 05/19/23 0.17 11/03/23 0.22 05/02/24 0.12 Assessment & Plan: #Prostate cancer: - Labs reviewed from 05/02/24: PSA 0.12, new raquel. - No acute concerns. Follows with [facility] Urology for LUTS, chronic UTIs, and h/o bilateral nephrolithiasis. - Per NCCN guidelines, PSA and H&P due every 6 months x 5 years s/p RT completion, then annually (PSA may be checked more frequently depending on risk level or other patient-specific factors). ERIKA if suspicious for recurrence. - Next PSA and H&P due in 6 months. #Effects of EBRT: - Completed definitive RT [...] or stool) in between his regularly scheduled appointmentswith our office, then he should seek medical evaluation. Acute: LUTS (lower urinary tract symptoms) Bowel dysfunction Sexual health/Erectile Dysfunction Fatigue Mood changes Late: Changes in urinary flow/difficulty passing urine (scarring from radiation) Blood in urine: may be infection, inflammation of bladder wall (cystitis), formation of telangiectasia (small, thin blood vessels that are dilated or broken near the surface of the bladder and may bleed), or bladder/genitourinary cancer Blood in stool: may be from hemorrhoids, telangiectasia from radiation, or colorectal cancer #Survivorship: - Weight: continue to follow with PCP and Nutrition. - Exercise: recommend at least 150 minutes of cardiovascular exercise per week, stretching twice per week, and 2 days of resistance/strength training per week. - Bone health: continue Vitamin D supplement. - Smoking: encourage cessation. - Follow with PCP on regular basis for: annual exam/health maintenance, immunizations, and cancer screenings (colonoscopy, lung cancer screening if appliable, etc). - Lymphoma: continue to follow with Medical Oncology. - Epilepsy, h/o CVA, aneurysm: continue to follow with Neurology. #Resources provided: none #Referrals placed: none Follow-Up: Next visit (prefers in-person): 6 months Labs ([facility]): PSA Narcisa Eduardo had the opportunity to ask questions, which were answered to the best of my knowledge.Narcisa Eduardo agreed to contact Radiation Oncology in between visits if he has any questions/concerns or new symptoms in regards to his radiation therapy/prostate cancer. Taya De La Vega PA-C Radiation Oncology documented in this encounter Plan of Treatment Upcoming Encounters Date Type Department Care Team (Late st Contact Info) Description 11/09/2024 10:30 AM EDT Office Visit Radiation Oncology at [address] [phone] Taya De La Vega PA [facility] [place] [address] 11/13/2024 2:00 PM EDT Office Visit Hematology/Oncology at [address] [phone] Kirt Kennedy MD [facility] DR [place] [address] Alem Lazaro APRN [address] [place] [address] DR HEMATOLOGY AND ONCOLOGY [place], [place] [address] Scheduled Orders Name Type Priority Associated Diagnoses Orde r Schedule PSA (Ultrasensitive) Lab Routine Malignant neoplasm of prostate Expected: 10/30/2024 (Approximate), Expires: 05/01/2025 documented as of this encounter Visit Diagnoses Diagnosis Malignant neoplasm of prostate- Primary S/P radiotherapy Convalescence following radiotherapy documented in this encounter Care Teams Order Processing Manager Relationship Specialty Start Date End Date Amanda Pino PA [address] [place] [address] PCP - General Internal Medicine 04/28/23 documented as of this encounter
--- OUTSIDE RECORDS SUMMARY | 2024-05-24 19:27 | XMS_ITS | Encounter Summary ---
Author Organization [facility] Address [facility] [place] [address] Care Team Providers Care Refrigerator Car Icer Name Role Phone Amanda Pino Primary Care Provider [phone] Encounter Details Date Type Department Care Team (Late st Contact Info) Description 11/15/2023 2:30 PM EDT Office Visit Hematology/Oncology at [address] [phone] Kirt Kennedy MD [facility] DR [place] [address] Alem Lazaro APRN [address] [place] [address] DR HEMATOLOGY [place] [address] Follicular lymphoma, unspecified grade, unspecified [...] Sign Reading Time Taken Comments Blood Pressure 107/56 11/15/2023 2:21 PM EDT Pulse 74 11/15/2023 2:21 PM EDT Temperature 36.6 ??C (97.8 ??F) 11/15/2023 2:21 PM ED T Respiratory Rate 18 11/15/2023 2:21 PM EDT Oxygen Saturation 100% 11/15/2023 2:21 PM EDT Inhaled Oxygen Concentration - - Weight 55.1 kg (121 lb 6.4 oz) 11/15/2023 2:21 P M EDT Height 177.8 cm (5' 10) 11/15/2023 2:21 PM EDT Body Mass Index 17.42 11/15/2023 2:21 PM EDT documented in this encounter Progress Notes * Alem Lazaro APRN - 11/15/2023 2:30 PM EDT Images from the original note were not included. Thoracic [place] [address] [phone] Narcisa Eduardo is being seen for the evaluation of follicular lymphoma. Assessment & Plan: Narcisa Eduardo is a 78 y.o. male patient with a PMH of an abdominal aortic aneurysm, thoracic aortic aneurysm, hypertension, prior alcohol abuse, tobacco abuse, a stroke in early 2019 and follicular lymphoma who completed EBRT for localized prostate cancer 04/2020 who wishes to followup here in [facility] for his lymphoma rather than at the [place] given the proximity to his home. He was last treated for his follicular lymphoma back in 2015 as detailed below. He is aware that itis unlikely that he is cured but that [...] We remain available to assist sooner should anychanges arise Alem Lazaro, DOCUMENT CONTROL COORDINATOR 11/15/2023 Thoracic Oncology [facility] CC: MARISOL Munoz DOCUMENT CONTROL COORDINATOR HPI/Interval History/Subjective: Last seen October 2022 Accompanied by his . Weight is down [...] day and think he doesn't hydrate enough. 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 3/ ppd. X30-40 years Alcohol use: Stopped drinking in 09/2019 after a stroke when he was placed on Plavix Drug use: None Loves gardening but can't do it any more. service: [employer]. [place] Era. Had Agent Bluebell Exposure. He is service connected for both lymphoma and prostate cancer Family History: Mother- Dscd Father- Dscd. Treated Prostate cancer Paternal uncle had prostate cancer Brother also had it. No known history of lung cancer Oncology Overview: # Follicular Lymphoma Presented with c/o right flank mass that he had noted on February 22 2015, about 3 weeks prior to the appointment with his Primary Care provider. The mass was not painful, and he did not have weight loss, frequent infections, profound fatigue, or F/C/sweats. [facility] by Dr. Martha Castañeda - PET-CT 11/26/15 showed progression - biopsy 12/09/15 returned follicular NHL - C1 D1 R-CVP 01/14/16 - C2 02/04/16 - [...] of recurrence # Prostate Cancer Stage IIC (cT1c, cN0, cM0, PSA: 12.9, Grade Group: 3) Treated with EBRT (he opted to not receive ADT) at [facility] with Dr. Evans 02/26-04/26/20 97.2 Gy in 44 fractions PMH: 1. AAA - Abdominal aortic aneurysm 2. Thoracic aortic aneurysm without rupture 3. Follicular non-Hodgkin lymphoma, small cleaved cell 4. Tobacco dependence 5. Alcohol dependence 6. Hypertension 7. Family history of prostate cancer 8. Family history of malignant neoplasm of breast 9. Personal History of Exposure to Agent Bluebell No data to display Patient Active Problem List Diagnosis Date Noted Nephrolithiasis 10/21/2023 Severe protein-calorie malnutrition 02/25/2021 Trauma 02/18/2021 Brain aneurysm 09/09/2020 Intracranial bleed 09/02/2020 Malignant neoplasm of prostate 01/05/2020 Follicular lymphoma 04/03/2015 Allergies Allergen Reactions Contrast [Iodine And Iodide Containing Products] Hives Depakote [Divalproex] Other (See Comments) Thrombocytopenia and spontaneous bleeding Medications 11/15/23 4015 Medication Sig Taking? fluconazole (Diflucan) 200 mg tablet Take 1 tablet by mouth daily. Please start taking on 11/04 for 3 days prior to your planned procedure. Yes aspirin EC 81 mg EC (DR) tablet Take 81 mg by mouth daily. Yes potassium chloride ER (Klor-Con, K-Tab) 10 mEq ER tablet 10 mEq. Yes alendronate sodium/vitamin D3 (ALENDRONATE-VITAMIN D3 ORAL) Take 25 mcg by mouth. Yes melatonin 3 mg Tablet Take by mouth. Yes cholecalciferol, Vitamin D3, (Vitamin D3) 1,000 unit Tablet Take by mouth. Yes Lactobacillus acidophilus (PROBIOTIC ORAL) TAKE ONE TABLET BY MOUTH EVERY DAY Yes lacosamide (Vimpat) 200 mg Tablet Take 1 tablet by mouth 2 times daily. Yes senna-docusate (Pericolace) 8.6-50 mg Tablet Take 1 tablet by mouth 2 times daily. Yes tamsulosin (Flomax) 0.4 mg Capsule Take 0.8 mg by mouth daily. Yes atorvastatin (Lipitor) 80 mg Tablet Take 80 mg by mouth daily. Yes I reviewed the problem list, allergies, medications, past medical history, social history and family history within the EPIC encounter. Pertinent details are noted above. Physical Exam: Wt Readings from Last 3 Encounters: 11/15/23 55.1 kg (121 lb 6.4 oz) 11/11/23 56.2 kg (123 lb 12.8 oz) 10/21/23 53.2 kg (117 lb 4.8 oz) Temp Readings from Last 3 Encounters: 11/15/23 36.6 ??C (97.8 ??F) (Temporal) 11/11/23 36.8 ??C (98.3 ??F) (Temporal) 10/22/23 36.7 ??C (98 ??F) (Oral) BP Readings from Last 3 Encounters: 11/15/23 107/56 11/11/23 111/58 10/22/23 115/57 Pulse Readings from Last 3 Encounters: 11/15/23 74 11/11/23 80 10/21/23 62 Body surface area is 1.65 meters squared. Wt Readings from Last 3 Encounters: 11/15/23 55.1 kg (121 lb 6.4 oz) 11/11/23 56.2 kg (123 lb 12.8 oz) 10/21/23 53.2 kg (117 lb 4.8 oz) KPS Score ECOG Grade Definition 90-100 0 Fully active, able to carry on all pre-disease performance without restriction X 70-80 1 Restricted in physically strenuous activity but ambulatory and able to carry out work of a light or sedentary nature, e.g., light house work, office work 50-60 2 Ambulatory and capable of all selfcare but unable to carry out any work activities; up and about more than 50% of waking hours 30-40 3 Capable of only limited selfcare; confined to bed or chair more than 50% of waking hours 10-20 4 Completely disabled; cannot carry on any selfcare; totally confined to bed or chair Physical Exam BP 107/56 (Patient Position: Sitting) Pulse 74 Temp 36.6 ??C (97.8 ??F) (Temporal) Resp 18 Ht 177.8 cm (5' 10) Wt 55.1 kg (121 lb 6.4 oz) SpO2 100% BMI 17.42 kg/m?? Constitutional: Oriented to person, place, and time. Appears thin, poor appetite. No distress. Mouth/Throat: Oropharynx is clear and moist. No oropharyngeal exudate. No scleral icterus. Eyes: Anicteric. Cardiovascular: Regular rate and regular rhythm. Exam reveals no friction rub. No murmur heard. Pulmonary/Chest: Normal respiratory effort. Lung clear to auscultation though diminished bilaterally. No wheezes or rales. Abdominal: +BS. Soft. No distension. No tenderness. No rebound. Musculoskeletal: Generally normal strength UE and LE. Normal range of motion. No edema. Lymphadenopathy: No cervical adenopathy, SC or axillary adenopathy b/l Neurological: Alert and oriented to person, place, and time. Grossly non-focal. Skin: Skin is warm and dry. No rash noted. No erythema. Psychiatric: Irritable with his . Seems to have some difficulty remembering the details of his medical care Review of Laboratory Data: 11/15/23 PSA 0.22 WBC 12.08, H/H 13.2/40.9, plt 242, ANC [address], Ca 9.3, Glucose 157, BUN 12, Creat 1.0, t protein 6.9, albumin 3.1, t bili 0.3, alk phos 120, Na 141, K 3.9, Cl 103, CO2 32.3, LDH 117, AST 12, ALT 16 3.20.23 White blood cell count 11.46 hemoglobin 15.1 platelet count 224,000 absolute neutrophil count 9.08 absolute lymphocyte count 1.23 Sodium 145 potassium 3.8 chloride 107 BUN 15 creatinine 0.8 glucose 128 calcium 9.4 total bilirubin0.3 AST 15 ALT 25 alk phos 154 LDH 126 albumin 3.5 PSA ultrasensitive was 0.17 3.3.22 I reviewed the labs from 06/18/2020 white blood cell count normal at 6.0, hemoglobin 14.7 [id number] absolute neutrophil count 4.6 absolute lymphocyte count 0.8 Glucose 99 BUN 9 creatinine 0.80 sodium 141 potassium 3.4 chloride 100 calcium 9.0 albumin 3.6 alk phos 100 ALT 15 AST 16 total bilirubin 0.8 LDH within normal limits at 196 ---- CBC and Differential ---- BLOOD Dec 19 Jun 07 Dec 07 Jun 16 Reference 2019 2018 2018 2017 10:23 11:52 10:34 12:28 Units Ranges WBC 7.1 7.1 5.3 6.8 10*3/uL 4.5 - 11 RBC 5.00 4.87 5.10 4.83 10*6/uL 4.23 - 5.66 HGB 15.8 15.7 16.4 15.3 g/dl 12.8 - 17 HCT 46.8 47.4 49.5 46.8 % 39.2 - 50.4 MCV 93.6 97.3 97.1 96.9 fl 82 - 99 MCH 31.6 32.2 32.2 31.7 pg 26.2 - 32.6 MCHC 33.8 33.1 33.1 32.7 g/dl 30.8 - 35.1 PLT 209 183 204 155 10*3/uL 140 - 360 PLASMA GLUCOSE BUN CREAT EGFR NA Ref range low 65 7 .5 60 135 Ref range high 100 25 1.5 145 mg/dL mg/dL mg/dl mL/min mmol/L [a] Dec 20, 2019 10:23 166 H 11 0.9 >60 139 [g] Sep 05, 2019 11:13 108 H 10 0.9 >60 136 [h] Jun 07, 2019 11:52 102 H 9 0.9 >60 140 [k] Mar 02, 2019 10:58 canc 7 0.8 >60 134 L [l] Dec 07, 2018 10:34 161 H 8 0.9 >60 139 [q] Jun 16, 2018 12:28 158 H 7 0.8 >60 135 Review of Imaging Data: 12/20/19 CT C/A/P Impression: 1. No new or recurrent lymphadenopathy in chest, abdomen or pelvis. 2. Minimal interval expansion of abdominal aortic aneurysm, using equivalent slice and equivalent technique, now measures 4.1 cm maximal AP diameter, previously measured 3.9 cm. FINDINGS: CT CHEST: Mild emphysematous changes in lung apices. No pulmonary nodule mass or consolidation. Major airways are clear. No pleural effusion. Small, scattered mediastinal nodes without bulky adenopathy. Unremarkable, bilateral axillary nodes with well preserved fatty cameron. Diameter of ascending aorta top limits of normal, 4.0 cm up. Pulmonary arteries within normal limits. No filling defects to suggest pulmonary emboli. Mild atherosclerotic change at the level of the aortic arch. Moderate calcification within the coronary arteries especially the LAD. Mild atherosclerotic changes throughout the descending thoracic aorta. Esophagus normal Thyroid gland appears of normal size, stable 4 mm hypoattenuating lesion left thyroid. Mild degenerative changes in the lower thoracic spine. CT ABDOMEN AND PELVIS: No enhancing liver masses. Stable 8 mm rounded area of hypoattenuation segments 5/6 most consistent with hepatic cyst. Normal liver size. 13 mm calcified gallstone. No intrahepatic biliary dilation. Normal size of spleen, 10 cm up. The portal vein is patent, prominent in size, 21 mm up. Although this can be associated with portal hypertension, there is no splenomegaly no evidence of varices. Normal morphology of pancreas, no masses. Nondistended stomach, small and large bowel. Symmetric renal enhancement. No hydronephrosis. Stable lobulated, probably septated left renal cyst unchanged from 12/07/2018. Adrenal glands unremarkable. Small prostatic calcifications, no prostatic hypertrophy. Bladder unremarkable. Stable 12 mm short axis periportal node. No bulky retroperitoneal or mesenteric adenopathy. No enlarged iliac or inguinal adenopathy. Bilobed, aneurysmal dilation of infrarenal abdominal aorta beginning immediately below the level of the renal arteries extending to approximately 2 cm above the aortoiliac bifurcation. Moderate atherosclerotic narrowing of both iliac systems. Stable degenerative changes best appreciated at L2-3 and L3-4. Stable mild compression deformity at T12. Review of Pathology Data: I personally reviewed the reports of the pathology as detailed in the oncology overview above. CT-guided biopsy of left inguinal node 03/18/15; taken from the [facility] pathology report - Follicular lymphoma NOTE: Sections show lymphoid tissues containing scattered poorly-defined follicles in a background of small lymphocytes. Follicles have attenuated mantle zones and show loss of polarization and absence of tingible-body macrophages. The atypical follicles are composed of a mixture of large non- cleaved cells with moderate cytoplasm, open chromatin and multiple nucleoli (centroblasts) and small cleaved cells without nucleoli (centrocytes). Few follicles are available for review, but those present appear to contain <15 centroblasts per high power field. Immunohistochemical stains are performed to further characterize the cell populations. Cells within the follicles are CD20+ CD10+ BCL2+ BCL6+ cyclin D negative B-cells. Occasional follicle center cells are MUM1+, while CD3+ T-cells are located in the interfollicular regions. The immunostain for CD21 highlights follicular dendritic networks and the Ki67 proliferation index is estimated at 10-20%. Flow cytometry immunophenotype analysis was perfocurrently (see separate report) and identified a monoclonal, lambda- restricted CD10+ B-cell population. In summary, these morphologic and immunophenotypic findings are consistent with involvement of this lymph node by a B-cell neoplasm of follicular center origin. There is a follicular pattern to the lymphoid population which, along with the flow cytometry results, is consistent with a follicular lymphoma. Though the lesion appears to be a low grade one, definitive grading is not possible in this material due to the limited nature of the biopsy. Moreover, a higher grade or diffuse process is not excluded. documented in this encounter Plan of Treatment Upcoming Encounters Date Type Department Care Team (Late st Contact Info) Description 11/09/2024 10:30 AM EDT Office Visit Radiation Oncology at [address] [phone] Taya De La Vega PA [facility] DR HEMATOLOGY [place] [address] 11/13/2024 2:00 PM EDT Office Visit Hematology/Oncology at [address] [phone] Kirt Kennedy MD [facility] DR [place] [address] Alem Lazaro APRN [address] [place] [address] DR HEMATOLOGY AND ONCOLOGY [place], [place] [id number] Scheduled Orders Name Type Priority Associated Diagnoses Orde r Schedule CBC (with Diff) Lab Routine Follicular lymphoma, unspecified grade, unspecified body region Expected: 11/14/2024, Expires: 05/17/2025 Comprehensive metabolic panel (non-fasting) Lab Routine Follicular lymphoma, unspecified grade, unspecified body region Expected: 11/14/2024, Expires: 05/17/2025 Lactate Dehydrogenase Lab Routine Follicular lymphoma, unspecified grade, unspecified body region Expected: 11/14/2024, Expires: 05/17/2025 documented as of this encounter Visit Diagnoses Diagnosis Follicular lymphoma, unspecified grade, unspecified body region documented in this encounter Care Teams Refrigerator Car Icer Relationship Specialty Start Date End Date Amanda Pino PA [address] [place] [address] PCP - General Internal Medicine 04/28/23 documented as of this encounter
--- OUTSIDE RECORDS SUMMARY | 2024-05-24 19:27 | XMS_ITS | Encounter Summary ---
Author Organization [facility] [place] [address] Care Team Providers Care Tester Vibrator Equipment Name Role Phone Amanda Pino Primary Care Provider [phone] Encounter Details Date Type Department Care Team (Late st Contact Info) Description 10/18/2023 [place] [phone] Perla Vail, RN Social History Tobacco Use [...] Progress Notes * Perla Vail, RN - 10/18/2023 10:12 AM EST Patient is requesting urine culture results from 10/15/23. Call placed to [facility], urine culture results requested to be faxed to [phone]. documented in this encounter Miscellaneous Notes * Telephone Encounter - Perla Vail RN - 10/18/2023 10:12 AM EST Copied from [facility] #[id number]. Topic: Specialty Dept CRMs - Generic Call >> Oct 18, 2023 8:22 AM Charlotte Muñiz wrote: Specialist: Landon Relationship (if other than patient-full name): Kinue, spouse Reason for Call: Spouse Kinue is calling back to see if results are in from urine test, test was done at [facility] on 10/15/2023 documented in this encounter Plan of Treatment Upcoming Encounters Date Type Department Care Team (Late st Contact Info) Description 11/09/2024 10:30 AM EDT Office Visit Radiation Oncology at [address] [phone] Taya De La Vega PA [facility] DR HEMATOLOGY [place] [address] 11/13/2024 2:00 PM EDT Office Visit Hematology/Oncology at [address] [phone] Kirt Kennedy MD [facility] DR HEMATOLOGY [place] [address] Alem Lazaro APRN [address] [place] [address] DR HEMATOLOGY AND ONCOLOGY [place], [place] [address] documented as of this encounter Visit Diagnoses Not on filedocumented in this encounter Care Teams Tester Vibrator Equipment Relationship Specialty Start Date End Date Amanda Pino PA [address] [place] [address] PCP - General Internal Medicine 04/28/23 documented as of this encounter
--- OUTSIDE RECORDS SUMMARY | 2024-05-24 19:27 | XMS_ITS | Encounter Summary ---
Author Organization [facility] Address [facility] [place] [address] Care Team Providers Care Career Center Advisor Name Role Phone Amanda Pino Primary Care Provider [phone] Encounter Details Date Type Department Care Team (Late st Contact Info) Description 10/18/2023 [place] [phone] Rajinder Melvin MD [facility] [place] [address] Social History Tobacco Use Types Packs/Day Years [...] encounter Miscellaneous Notes * Telephone Encounter - Rajinder Melvin MD - 10/18/2023 5:54 PM EST Mr. Eduardo's urine culture from 10/15 is growing >50K MMF and <10K Gram (-) bacteria. Talked with his spouse and I am going to send 7 days of cephalexin to Danny Patino in [facility]. Rajinder Melvin MD 10/18/2023 documented in this encounter Plan of Treatment Upcoming Encounters Date Type Department Care Team (Late st Contact Info) Description 11/09/2024 10:30 AM EDT Office Visit Radiation Oncology at [address] [phone] Taya De La Vega PA [facility] DR [place] [address] 11/13/2024 2:00 PM EDT Office Visit Hematology/Oncology at [address] [phone] Kirt Kennedy MD [facility] DR [place] [address] Alem Lazaro APRN [address] [place] [address] DR [place] [address] documented as of this encounter Visit Diagnoses Not on filedocumented in this encounter Care Teams Career Center Advisor Relationship Specialty Start Date End Date Amanda Pino PA [address] [place] [address] PCP - General Internal Medicine 04/28/23 documented as of this encounter
--- OUTSIDE RECORDS SUMMARY | 2024-05-24 19:27 | XMS_ITS | Encounter Summary ---
Author Organization [facility] [place] [address] Care Team Providers Care Hotel Housekeeper Name Role Phone Amanda Pino Primary Care Provider [phone] Reason for Visit * Auth/Cert (Routine) Specialty Diagnoses / Procedures Referred By Contaryan t Referred To Contact Diagnoses RIGHT STONE Procedures PRO PERQ NL/PL LITHOTRIPSY COMPLEX >2 CM BRAZER ELECTRONIC LOCATIONS PRO PLMT NEPHROSTOMY CATH PRQ NEW [...] MODIFIER HOLMIUM LASER Jonn Navarrete Jr., MD [facility] [place] [address] RUST Referral ID Status Reason Start Date Expiration Date Visits Re quested Visits Authorized [id number] 1 1 Encounter Details Date Type Department Care Team (Late st Contact Info) Description 10/21/2023 10:46 AM EST - 10/21/2023 3:48 PM EST Surgery Main [place] [address] Jonn Navarrete Jr., MD [facility] [place] [address] NEPHROLITHOTOMY, (PCNL) PERCUTANEOUS, COMPLEX (EG STONE > 2CM) (WRVU 20.91) Social History Tobacco Use Types Packs/Day Years [...] Sign Reading Time Taken Comments Blood Pressure 111/70 10/21/2023 10:20 AM EST Pulse 58 10/21/2023 10:20 AM EST Temperature 36.9 ??C (98.4 ??F) 10/21/2023 10:[address] Respiratory Rate 20 10/21/2023 10:20 AM EST Oxygen Saturation 95% 10/21/2023 10:20 AM EST Inhaled Oxygen Concentration - - Weight 53.2 kg (117 lb 4.8 oz) 10/21/2023 10:20 AM EST Height 177.8 cm (5' 10) 10/21/2023 10:20 AM EST Body Mass Index 16.83 10/21/2023 10:20 AM EST documented in this encounter Discharge Summaries * Rajinder Melvin MD - 10/22/2023 4:00 PM EST Discharge Summary Patient Name: Narcisa Eduardo Patient Age: 78 y.o. 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 No recent changes to health status. Left URS in 08/14 showed innumerable small stones and an impassable right ureter. CT showed persistent left stones. Prior Cx with rivera - Fluc On keflex for GNRs - Ancef Hospital Course: Patient was admitted to [facility] via the same day surgery program and [...] a walker. [facility]y [facility] and it's thought stressors can trigger seizures. [...] who have questions please contact the health primary care pediatrician that requested your imaging first. Pending Studies [...] may be used if needed and are zadh-heo-ftjtnpk medications available at most local pharmacies. Prunes [...] will call you to schedule. Please call [phone] (clinic number for appointments) to confirm date [...] De La Vega PA Radiation Oncology at [facility] Arrive at: [facility] door at end of hallway [phone] 11/15/2023 2:30 PM Alem Lazaro APRN; Kirt Kennedy MD Hematology/Oncology at [facility] Arrive at: [facility] door at end of hallway [phone] Follow-Up: Future Appointments Date Time Provider Department Center 11/11/2023 10:30 AM Taya De La Vega PA [facility] 11/15/2023 2:30 PM Kirt Kennedy MD [facility] Hem Off [facility] Primary Care Provider: MARISOL Munoz [phone] Unexpected Findings: Follow-up with neurologist immediately or [...] was managed by the Urology Team at [facility]. If you have any questions or concerns, please feel free to contact us. Provider Contact Information: Urology Clinic: [facility] (after business hours): Total time spent on discharge including glmq-hm-dogr time, care coordination, and discharge summarypreparation: 80 [...] may be used if needed and are mhfi-sha-coquzud medications available at most local pharmacies. Prunes [...] will call you to schedule. Please call [phone] (clinic number for appointments) to confirm date [...] Gant RN - 10/22/2023 6:16 PM EST [facility] Short Stay Unit Discharge Note [...] Note Patient: Narcisa Eduardo : 1945 Room: [address] Admit date: 10/21/2023 Attending: Jonn Navarrete [...] a walker. He sees neurology at [facility] and it's thought stressors can trigger seizures. [...] Giraldo in place draining red urineadequately. VSS. 190 Report given to MAYA Lester for change of shift. documented in this encounter H&P Notes * Maycol Caruso MD - 10/21/2023 10:50 AM EST Patient Name: Narcisa Eduardo Age: 78 y.o. 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 at [facility] Dr Ko PRO CYSTO W URETEROSCOPY &/OR PYELOSCOPY, DX Right 08/05/2023 CYSTOURETEROSCOPY, DIAGNOSTIC (WRVU 5.75) performed by Jonn Navarrete Jr., MD at [facility] MAIN OR PRO CYSTO/URETEROSCOPY W/LITHOTRIPSY INC INDWELLING STENT INSERTION Left 08/05/2023 CYSTOURETEROSCOPY,DIAGNOSTIC,W/ LITHOTRIPSY INC. INSERTION OF INDWELLING URETERAL STENT (WRVU 8) performed by Jonn Navarrete Jr., MD at [facility] MAIN OR PRO CYSTOSCOPY, INSERT URETERAL STENT Right 08/05/2023 CYSTO, STENT PLACEMENT (WRVU 2.82) performed by Jonn Navarrete Jr., MD at [facility] MAIN OR PROSTATE BIOPSY 11/23/2019 [...] EST Brief Operative Note Patient Name: Narcisa Eduardo : [id number] MR#: [id number] Case Date: 10/21/2023 Surgeon: Surgeon(s) and Role: [...] Jr., MD - 10/21/2023 1:50 PM EST [facility] Operative Note Patient Name: Narcisa Eduardo : [id number] MR#: [id number] Case Date: 10/21/2023 Surgeon: Surgeon(s) and Role: [...] a 78 y.o. 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 Stentwas replaced with a new 8 Moroccan 26 cm stent in a retrograde fashion. [...] collecting system on fluoroscopic evaluation. An 8 Moroccan dilator was used to dilate the tract [...] superstiff wire inthe same fashion. A 21/22 Moroccan mini PCNL obturator was advanced over the wire under fluoroscopy to the level of thecalyx. Over the obturator the 22 Moroccan mini PCNL sheath was advanced and positioned [...] advanced into the renal pelvis. A 6 Moroccan variable length double-J ureteral stent was then passed over the wire and down the right ureter in an antegrade fashion under fluoroscopic guidance. Proximal curl formed in the renal pelvis and distal curl within the bladder. The nephroscope was then removed. Surgiflo was applied to the tract. A 5 Moroccan Pollick catheter was passed over the safety wire and the wire was withdrawn. Skin edges were reapproximated with 4-0 Monocryl. The Ella catheter was then secured to the skin using two 0-Silk sutures. The guidewire was then removed from the Ella and Grove catheter combination. The other remaining superstiffsafety wire [...] AM EDT Office Visit Radiation Oncology at [address] [phone] Taya De La Vega PA [facility] DR H[place] [address] 11/13/2024 2:00 PM EDT Office Visit Hematology/Oncology at [address] [phone] Kirt Kennedy MD [facility] DR H[place] [address] Alem Lazaro APRN [address] [place] [address] DR HEMATOLOGY AND ONCOLOGY [place], [place] [address] documented as of this encounter Procedures Procedure [...] 2:10 PM EST Cystoscopy, Remv Calculus, Simple ([id number]) 10/21/2023 12:35 PM EST RIGHT STONE Ultrasonic Guidance, Intraoperative ([id number]) 10/21/2023 12:35 PM EST RIGHT STONE Plmt Nephrostomy Cath Prq New Access Rs&I ([id number]) 10/21/2023 12:35 PM EST RIGHT STONE Cysto W Ureteroscopy &/Or Pyeloscopy, Dx ([id number]) 10/21/2023 12:35 PM EST RIGHT STONE Cysto/Uretero/Pyeloscop y, Calculus Tx ([id number]) 10/21/2023 12:35 PM EST RIGHT STONE Perq Nl/Pl Lithotripsy Complex >2 Cm [employer] Analyst Locations ([id number]) 10/21/2023 12:35 PM EST RIGHT STONE URINE CULTURE Routine 10/21/2023 9:48 AM EST ABORH RECHECK STATUS Routine 10/21/2023 9:45 AM EST TYPE AND SCREEN, SDP (FUTURE SURGERY, [facility] SAME DAY PROGRAM ONLY) STAT 10/21/2023 9:45 [...] who have questions please contact the health primary care pediatrician that requested your imaging first. ? Narrative [...] the resident's interpretationand agree with the findings, Damian Duggan MD at 10/22/2023 7:24 AM Thank you for letting us participate in the care of this patient. If youare a health care provider and have any questions regarding this report,please contact the number below. For patients who have questions please contactthe health primary care pediatrician that requested your imaging first. Jonn Navarrete Jr., MD IM CT ORDERABLES * (ABNORMAL) Differential, Automated (10/22/2023 12:50 AM EST) Neutrophil % 94.1 % [facility] Neutrophil Absolute 15.28(H) 1.70 - 6.10 x10(3)/mc L [facility] Lymph % 3.3 % [facility] Lymphocytes Abs 0.5(L) 0.9 - 3.2 x10(3)/mc L [facility] Monocyte % 1.9 % [facility] Monocyte Abs 0.3 0.3 - 0.9 x10(3)/mc L [facility] Eos % 0.1 % [facility] Eosinophils Abs 0.0 0.0 - 0.4 x10(3)/ L [facility] Basophil % 0.1 % [facility] Baso Absolute 0.0 0.0 - 0.1 x10(3)/mc L [facility] Immature Gran % 0.50 % [facility] Comment: Immature granulocytes(IG's)percentage and absolute count will include metamyelocytes, myelocytes, and promyelocytes. Blood smears from CBCs yielding IG's will be scanned manually for concordance. If this scan disagrees with the automated IG or if promyelocytes are noted, a manual differential will be performed. Immature Gran Absolute 0.08(H) 0.00 - 0.04 x10(3)/mc L [facility] Blood 10/22/2023 12:5 0 AM EST 10/22/2023 1:02 AM EST Narrative Resulting Agency Comment Spec In Lab Maycol Caruso MD HEMATOLOGY ORDERABLE S [place] [address] * (ABNORMAL) Hemogram (10/22/2023 12:50 AM EST) White Blood Cell 16.2(H) 4.0 - 9.5 x10(3)/mc L [facility] Red Blood Cell 4.02(L) 4.58 - 5.54 x10(6)/mc L [facility] Hemoglobin 12.3(L) 13.7 - 16.5 g/dL [facility] Hematocrit 37.7(L) 40.5 - 48.5 % [facility] Mean Cell Volume 93.8(H) 82.9 - 93.1 fL [facility] Mean Cell Hemoglobin 30.6 27.5 - 32.1 pg [facility] Mean Cell Hemoglobin Concentration 32.6 32.0 - 35.7 g/dL [facility] Platelet 276 145 - 357 x10(3)/mc L [facility] RDW Standard Deviation 46.9(H) 36.0 - 45.0 fL [facility] RDW coefficient of variation 13.6 11.4 - 13.8 % [facility] Mean Platelet Volume 8.8 7.6 - 12.9 fL [facility] NRBC% auto 0.0 % [facility] NRBC Absolute 0.000 0.000 - 0.000 x10(3)/mc L [facility] Blood 10/22/2023 12:5 0 AM EST 10/22/2023 1:02 AM EST Narrative Resulting Agency Comment Spec In Lab Maycol Caruso MD HEMATOLOGY ORDERABLE S [place] [address] * (ABNORMAL) Basic Metabolic Panel (non-fasting) (10/22/2023 12:50 AM EST) Glucose 211(H) 65 - 199 mg/dL [facility] Comment:Diabetes: >=200 mg/d L plus symptoms Blood Urea Nitrogen 14 10 - 20 mg/dL [facility] Creatinine 0.74(L) 0.80 - 1.50 mg/dL [facility] Sodium 138 135 - 145 mmol/L [facility] Potassium 4.5 3.5 - 5.0 mmol/L [facility] Comment: Please note: ??Patients with WBC >100,000 may have falsely elevated Potassium levels. ??For accurate Potassium quantification in these patients send serum separator tube (gold top) for subsequent determinations. ??Contact the Clinical Chemistry Laboratory if there are any questions. Chloride 103 98 - 107 mmol/L [facility] Carbon Dioxide 26 22 - 31 mmol/L [facility] Anion Gap 9 5 - 15 mmol/L [facility] Calcium 9.3 8.5 - 10.5 mg/dL [facility] Est Glomerular Filtration Rate 93 >=60 mL/min/1. 73 m?? [facility] Comment: This patient's estimated GFR [...] MD CHEMISTRY ORDERABL ES Performing Organization Address City/[facility] Co de Phone Number [place] [address] * Magnesium (10/22/2023 12:50 AM EST) Magnesium 0.82 0.69 - 1.07 mmol/L [facility] Blood 10/22/2023 12:5 0 AM EST 10/22/2023 1:02 AM EST Narrative Resulting Agency Comment Spec In Lab Jonn Navarrete Jr., MD CHEMISTRY ORDERABL ES Performing Organization Address City/[facility] [place] [address] * Phosphorus (10/22/2023 12:50 AM EST) Phosphorus 3.7 2.5 - 4.5 mg/dL [facility] Blood 10/22/2023 12:5 0 AM EST 10/22/2023 1:02 AM EST Narrative Resulting Agency Comment Spec In Lab Jonn Navarrete Jr., MD CHEMISTRY ORDERABL ES [place] [address] * XR Fluoro No Rad <1Hr - [...] developed and its performance characteristics ?determined by [facility] in a manner consistent with CLIA ?requirements. This test has not been cleared or approved by ?the U.S. Food and Drug Administration. ?Test Performed by: ?[facility] ?[address] [place] [address] ?Reinforcing Iron Worker Helper: Russel Clemons M.D. Ph.D.; CLIA# [id number] [facility] Calculus 10/21/2023 4:51 PM EST 10/22/2023 1:26 PM EST Narrative Resulting Agency Comment Spec In Lab Jonn Navarrete Jr., MD LAB SEND OUT ORDER YESSY Performing Organization Address City/State/[facility] Co de Phone Number [place] [address] * Kidney Stone Analysis (10/21/2023 4:47 PM [...] developed and its performance characteristics ?determined by [facility] in a manner consistent with CLIA ?requirements. This test has not been cleared or approved by ?the U.S. Food and Drug Administration. ?Test Performed by: ?[facility] ?[address] [place] [address] ?Reinforcing Iron Worker Helper: Russel Clemons M.D. Ph.D.; CLIA# [id number] [facility] Calculus 10/21/2023 4:47 PM EST 10/22/2023 1:26 PM EST Narrative Resulting Agency Comment Spec In Lab Jonn Navarrete Jr., MD LAB SEND OUT ORDER YESSY [facility] [address] [place] [address] * Anaerobic Culture (10/21/2023 3:25 PM EST) Anaerobic Culture No anaerobic organisms isolated [facility] Kidney 10/21/2023 3:25 PM EST 10/21/2023 4:44 PM EST Comment:Right Kidney Stone f or culture Narrative Resulting Agency Comment Spec In Lab Jonn Navarrete Jr., MD MICROBIOLOGY - GEN ERAL ORDERABLES Performing Organization Address City/[facility] [place] [address] * (ABNORMAL) Tissue culture (10/21/2023 3:25 PM EST) Tissue Culture Many Rivera parapsilosis(A) [facility] Gram Stain No Neutrophils seen. No microorganisms seen. (A) [facility] Organism Rivera parapsilosis(A) [facility] Kidney 10/21/2023 3:25 PM EST 10/21/2023 4:44 PM EST Comment:Right Kidney Stone f or culture Narrative Resulting Agency Comment Spec In Lab Jonn Navarrete Jr., MD MICROBIOLOGY - GEN ERAL ORDERABLES Performing Organization Address [facility] [place] [address] * (ABNORMAL) Urine culture Cystoscopic Urine (10/21/2023 2:10 PM EST) Urine Culture 1,000-9,000 cfu/ml Rivera parapsilosi s(A) [facility] Organism Rivera parapsilosi s(A) [facility] Cystoscopic Urine 10/21/2023 2:10 PM EST 10/21/2023 3:02 PM EST Comment:Bladder Urine for Cu lture Narrative Resulting Agency Comment Spec In Lab Jonn Navarrete Jr., MD MICROBIOLOGY - GEN ERAL ORDERABLES Performing Organization Address City/[facility]/ZIP Co de Phone Number [place] [address] * (ABNORMAL) Urine culture (10/21/2023 9:48 AM EST) Urine Culture 50,000-99,000 cfu/ml mixed mucosal stefania 50,000-99,000 cfu/ml Gram Negative organisms Note: Culture shows multiple bacterial species suggesting mucosal contamination. (A) [facility] Urine 10/21/2023 9:48 AM EST 10/21/2023 10:35 AM EST Narrative Resulting Agency Comment Spec In Lab Jonn Navarrete Jr., MD MICROBIOLOGY - GEN ERAL ORDERABLES Performing Organization Address [facility] Co de Phone Number [place] [address] * ABORH Recheck Status (10/21/2023 9:45 AM EST) ABORH Type Recheck Completed [facility] Blood 10/21/2023 9:45 AM EST 10/21/2023 9:56 AM EST Narrative Resulting Agency Comment Spec In Lab Jonn Navarrete Jr., MD BLOOD BANK LAB ORD ERABLES Performing Organization Address [facility] Phone Number [place] [address] * Type and Screen Future Surgery, [facility] SAME DAY PROGRAM ONLY) (10/21/2023 9:45 AM EST) ABORH Type A POSITIVE [facility] Patient BB History Found [facility] Expires at 2359 on: 10-24-2023 [facility] Ab Screen Interp Negative [facility] Blood 10/21/2023 9:45 AM EST 10/21/2023 9:45 AM EST Narrative Resulting Agency Comment Spec In Lab Jonn Navarrete Jr., MD BLOOD BANK LAB ORD ERABLES Performing Organization Address [facility] Co de Phone Number [place] [address] * SCAN DOC: IMPLANTABLE DEVICES (10/21/2023 12:00 AM EST) Narrative 10/21/2023 12:00 AM EST Ordered by an unspecified provider. Scanning Provider MEDIA MGR SCAN EXT O RDR/RSLT documented in this encounter Visit Diagnoses Not on filedocumented in this encounter Admitting Diagnoses Diagnosis Nephrolithiasis [...] Given 10/21/2023 6:28 PM EST 650 mg BUpivacaine (pf) (Marcaine) (5 mg/mL) 0.5% injection PRN, Starting on Brisa 10/21/23 at 1702, Until Wed10/22/23 at 2019, Intra-Operative (Intra-Procedure), Routine Given 10/21/2023 5:02 PM EST 5 mLs 19- Surgical Site cephALEXin (Keflex) capsule 500 mg 500 mg, Oral, 3 TIMES DAILY, First dose on Brisa 10/21/23 at 2115, Until Discontinued, Routine, Indication for (Active or Suspected): Urinary Tract/Pyelonephritis Given 10/22/2023 4:34 PM EST 500 mg Given 10/22/2023 9:23 AM EST 500 mg Given 10/21/2023 9:15 PM EST 500 mg iohexoL (Omnipaque) (300 mg/mL) solution PRN, Starting on Brisa 10/21/23 at 1540, Until Wed10/22/23 at 2019, Intra-Operative (Intra-Procedure), Routine Given 10/21/2023 3:40 PM EST 100 mLs 19- Surgical Site lacosamide (Vimpat) tablet 200 mg 200 mg, [...] 10/21/2023 5:49 PM EST 50 mL/hr 50 mL/hr lidocaine-EPINEPHrine (1% - 1:100,000) injection PRN, Starting on Wed10/21/23 at 1702, Until Wed10/22/23 at 2019, Intra-Operative (Intra-Procedure), Routine Given 10/21/2023 5:02 PM EST 5 mLs 19- Surgical Site melatonin tablet 3 mg 3 mg, Oral, NIGHTLY, First dose on Wed10/21/23 at 2115, Until Discontinued, Routine Given 10/21/2023 [...] on Wed10/22/23 at 0900, Until Discontinued, Routine 0923 (Not Given - Provider: Tanvi Gant RN - Reason: Patient/family refused) ceFAZolin (Ancef) 2 g vial attach to sodium chloride 0.9% 100 mL Mini-Bag Plus (COMPLETED) 2 g, Intravenous, PROGRAM DIRECTOR/MORNING SHOW HOST TO O.R., 1 dose, On Wed10/21/23 at 1045, Administer over 30 Minutes, Day of Surgery (Day of Procedure), Indication for (Active or Suspected): Prophylaxis 1307 (New Bag - Provider: Oriana Guzman CRNA) cephALEXin (Keflex) capsule 500 mg 500 mg, Oral, 3 TIMES DAILY, First dose on Brisa 10/21/23 at 211, Until Discontinued, Routine, Indication for (Active or Suspected): Urinary Tract/Pyelonephritis 2114 (Given - Provider: Mojgan Montemayor RN - Comment: can not be scanned) 0923 (Given - Provider: Tanvi Gant RN)1634 (Given - Provider: Tanvi Gant RN) fluconazole (Diflucan) 400 mg in sodium chloride 0.9% 200 mL infusion (COMPLETED) 400 mg, Intravenous, PROGRAM DIRECTOR/MORNING SHOW HOST TO O.R., 1 dose, On Brisa 10/21/23 [...] DAILY, First dose on Brisa 10/21/23 at 2114, Until Discontinued, Tablets may be split or crushed. 2214 (Given - Provider: Meng Bermeo RN) 1156 (Not Given - Provider: Tanvi Gant RN - Reason: Patient/family refused - Comment: Got med from [facility], pt declined)1349 (Given - Provider: Tanvi Gant RN - Comment: Pt requested med.) LORazepam (Ativan) (2 mg/mL) injection syringe 1 mg 1 mg, Intravenous, ONCE, 1 dose, On Wed10/22/23 at 1515, Routine 1515 (Not Given - Provider: Tanvi Gant RN - Reason: See comment - Comment: No longer indicated) melatonin tablet 3 mg 3 mg, Oral, NIGHTLY, First dose on Brisa 10/21/23 at 2115, Until Discontinued, Routine 2129 (Given [...] Mojgan Montemayor RN) 0900 (Given - Provider: Tanvi Gant RN) tamsulosin (Flomax) capsule 0.8 mg 0.8 mg, Oral, DAILY, First dose on Wed10/22/23 at 0900, Until Discontinued, DO NOT CRUSH OR CHEW, Routine 922 (Given - Provid er: Tanvi Gant RN) [...] other ordered pain medications are indicated., Routine 1827 (Given - Provider: Loretta Thomson RN) BUpivacaine [...] Oral, EVERY 6 HOURS PRN, Starting on Birsa 10/21/23 at 1741, Until Wed10/22/23 at 2019, [...] Routine documented in this encounter Care Teams Hotel Housekeeper Relationship Specialty Start Date End Date Amanda Pino PA [address] [place] [address] PCP - General Internal Medicine 04/28/23 documented as of this encounter
--- OUTSIDE RECORDS SUMMARY | 2024-05-24 19:27 | XMS_ITS | Encounter Summary ---
Author Organization [facility] [place] [address] Care Team Providers Care Cigarette Lighter Repairer Name Role Phone Amanda Pino Primary Care Provider [phone] Encounter Details Date Type Department Care Team (Late st Contact Info) Description 10/20/2023 Telephone Urology at [facility] [place] [phone] Perla Vail, RN Social History Tobacco Use [...] Progress Notes * Perla Vail, RN - 10/20/2023 4:11 PM EST Patient notified that it was ok to proceed with surgery. Same day nursing saff notified. * Perla Vail, RN - 10/20/2023 3:11 PM EST Message received from same day nurse regarding a rash on patients buttocks, inquiring if it is ok to proceed with surgery. Patient is scheduled for ureteroscopy with Dr. Navarrete tomorrow. Call placed to patient, patient states that he would not characterize area as a rash, patient states that he has had a reddened area on his sacrum for 3 weeks, patient states that this area is not open and confirms that he has not had it looked at by his primary care provider. Will confirm with urology resident orthodontist assistant that it is ok to proceed with surgery. documented in this encounter Plan of Treatment Upcoming Encounters Date Type Department Care Team (Late st Contact Info) Description 11/09/2024 10:30 AM EDT Office Visit Radiation Oncology at [address] [phone] Taya De La Vega PA [facility] DR [place] [address] 11/13/2024 2:00 PM EDT Office Visit Hematology/Oncology at [address] [phone] Kirt Kennedy MD [facility] DR [place] [address] Alem Lazaro APRN [address] [place] [address] DR HEMATOLOGY AND ONCOLOGY [place], [place] [phone] documented as of this encounter Visit Diagnoses Not on filedocumented in this encounter Care Teams Cigarette Lighter Repairer Relationship Specialty Start Date End Date Amanda Pino PA [address] [place] [address] PCP - General Internal Medicine 04/28/23 documented as of this encounter
--- OUTSIDE RECORDS SUMMARY | 2024-05-24 19:27 | XMS_ITS | Encounter Summary ---
Author Organization [facility] [place] [address] Care Team Providers Care Forging Roll Operator Name Role Phone Amanda Pino Primary Care Provider [phone] Encounter Details Date Type Department Care Team (Late st Contact Info) Description 11/03/2023 [place] [phone] Alex Sewell, RN Social History Tobacco Use [...] Telephone Encounter - Alex Sewell, RN - 11/03/2023 3:19 PM EDT Spoke to patient's , Darrel, regarding her [facility] message about this patient's prescription for Fluconazole (200mg). She said she picked it up today but thinks it is wrong and is confused. She said the instructions say to start taking this medication on 11/05/2023 for 3 days prior to his planned procedure. She said they are not aware of any procedure as nobody has contacted them. I explained that this patient is scheduled for surgery on 11/25/[address] Navarrete. She said they were never notified of this surgery date. She also said for this patient's past procedures he was prescribed an antibiotic to take for several days, 3 days prior and 4 days post procedure. She said she did not understand why it only says to take for 3 days. I explained that this patient was given a 7 day course previously because his pre-op urine culture showed some bacteria. I explained to her that the instructions on this medication were incorrect and not to take this medication. I advised her that this patient will have to do a urine culture 2 weeks before surgery. Sherequested to to this at [facility] lab. I told her we will fax them an order for his urine culture. I advised her that I will notify Dr. Navarrete and have a new prescription ordered with appropriate instructions. documented in this encounter Plan of Treatment Upcoming Encounters Date Type Department Care Team (Late st Contact Info) Description 11/09/2024 10:30 AM EDT Office Visit Radiation Oncology at [address] [phone] Taya De La Vega PA [facility] [place] [address] 11/13/2024 2:00 PM EDT Office Visit Hematology/Oncology at [address] [phone] Kirt Kennedy MD [facility] [place] [address] Alem Lazaro APRN [address] [place] [address] DR HEMATOLOGY AND ONCOLOGY [place], [place] [phone] documented as of this encounter Visit Diagnoses Diagnosis Pre-op testing Preoperative examination, unspecified documented in this encounter Care Teams Forging Roll Operator Relationship Specialty Start Date End Date Amanda Pino PA [address] [place] [address] PCP - General Internal Medicine 04/28/23 documented as of this encounter
--- OUTSIDE RECORDS SUMMARY | 2024-05-24 19:27 | XMS_ITS | Referral Summary ---
Author Organization [facility] Address [address] [place] [address] Care Team Providers Care Detective Chief Name Role Phone JanAlfredo vazquez Primary Care Provider [phone] Social History Tobacco Use Types Packs/Day Years Used Date Smoking Tobacco: Never Assessed Sex and Gender Information Value Date Recorded Sex Assigned at Not on file Gender Identity Not on file Sexual Orientation Not on file Plan of Treatment Not on file Care Teams Detective Chief Relationship Specialty Start Date End Date Alfredo Montoya DO [address] [place] [id number] PCP - General Internal Medicine - Primary Care 05/23/21
--- OUTSIDE RECORDS SUMMARY | 2024-05-24 19:27 | XMS_ITS | Encounter Summary ---
Author Organization [facility] [place] [address] Care Team Providers Care Sql Report Writer Name Role Phone Amanda Pino Primary Care Provider [phone] Reason for Visit * Auth/Cert (Routine) Specialty Diagnoses / Procedures Referred By Contaryan t Referred To Contact Diagnoses RIGHT STONE Procedures PRO PERQ NL/PL LITHOTRIPSY COMPLEX >2 CM MERIT SYSTEM DIRECTOR LOCATIONS PRO PLMT NEPHROSTOMY CATH PRQ NEW [...] SINGLE ORGAN (WRVU 0.59) MODIFIER HOLMIUM LASER Adan Navarrete Jr., MD [facility] [address] [facility] Referral ID Status Reason Start Date Expiration Date Visits Re quested Visits Authorized [id number] 1 1 Encounter Details Date Type Department Care Team (Late st Contact Info) Description 10/21/2023 12:36 PM EST Anesthesia [place] [phone] Marisol Funez MD [facility] [place] [address] Oriana Guzman CRNA [facility] [place] [address] Anesthesia Record Procedure Summary Procedure Name Responsible Anesthesiologist Anesthesia Start Time Anesthesia Stop Time NEPHROLITHOTOMY, (PCNL) PERCUTANEOUS, COMPLEX (EG STONE > 2CM) (WRVU 20.91) (Right: Flank) Marisol Funez MD 10/21/23 1236 10/21/23 1717 Events Date Time Event Comment 10/21/2023 1100 1236 AN Verify 1236 Start 1236 An Start Data 1249 An Induction 1252 An Intubation 1253 Anesthesia Ready 1253 Quick Note Post-induction but prior to mask ventilation, patient noted to have an extremely loose left lower incisor although had denied loose teeth in pre-op holding. Extreme care taken during placement of OPA and DL. Tooth unchanged post DL. 1412 Quick Note Breath hold req uested by surgical team 1547 Break/Relief In I assumed ca re for Break Relief before which we: 1. Identified the patient 2. Identified the responsible provider(s) 3. Reviewed the pertinent medical history 4. Discussed the surgical plan and course 5. Reviewed intra-op anesthesia management and issues during anesthesia 6. Set expectations for the relief (and/or post-procedure) period 7. Allowed opportunity for questions and acknowledgement of understanding Marisol Funez MD, PhD 1622 Break/Relief Out 1702 Quick Note Patient flipped supine. 1709 Extubation/LMA Out 1711 an stop data 1716 Recovery or ICU Handoff Meche ent care was transferred to the destination unit staff after review of the patient's medical history, current anesthetic/surgical status and plan, according to the Provider Handoff Checklist. 1717 Stop Meds Name Total fentaNYL 100 mcg IV Lidocaine 50 mg Propofol 140 mg Rocuronium 100 mg ePHEDrine 15 mg Ondansetron 4 mg Dexamethasone 8 mg esmolol 50 mg ceFAZolin (Ancef) 2 g vial a ttach to sodium chloride 0.9% 100 mL Mini-Bag Plus 2 g fluconazole (Diflucan) 400 mg in sodium chloride 0.9% 200 mL infusion 200 mg propofol INF 406.45 mg dexmedeTOMIDine 16 mcg sugammadex 200 mg lactated ringers 800 mL * Agents Name O2 * Blood No blood administrations on file. Lines, Drains, and Airways Type Details Placement Removal Incision 08/05/23; penis; oth er (see comments) (LDA for documentation purposes - camera insertion) 08/05/23 0000 by Ashwini Chaudhary RN Incision 10/21/23; 1350; uret hral meatus; Cystoscope 10/21/23 1350 by Corey Vasquez RN Incision 10/21/23; 1420; Righ t; flank; non-laparascopic puncture 10/21/23 1420 by Corey Vasquez RN Ureteral Catheter 10/21/23; 1655; righ t ureter; 5F Yellow Open Ended Catheter Inserted by Dr. Navarrete 10/21/23 1655 by Corey Vasquez RN PIV 10/21/23; 1050; 20 g auge, 1 in length; cephalic vein (lateral side of arm), right; Anatomical Landmarks; Jesi; distraction, intradermal injection, tolerated well, appears comfortable; removed per policy/procedure, catheter/device intact; 10/22/23; 174010/21/23 1050 by Jesi Jacob RN 10/22/23 1741 by Juli Andrade ETT Mask Ventilation: Ad junct (2); ETT Type: Cuffed; ETT Size: 7.5 mm; Mac Blade: 4; Notes: Asleep, Stylette; Attempts: 1; Laryngoscopy Grade: 1; ETT Placement Verified By: Capnometry; Secured at Teeth: 23 cm; Inserted by: Armin; Removal Date: 10/21/23; Removal Time: 17010/21/23 1252 by Marisol Funez MD 10/21/23 1709 by Oriana Guzman CRNA Urethral Catheter 10/21/23; 1400; Urol ogic surgery, Physician order; indwelling double lumen catheter; latex; 16; inserted at this facility; 1; 5; 10; other (see comments) (Inserted by Dr. Navarrete); drainage bag; 10/22/23; 1021 10/21/23 1400 by Corey Vasquez RN 10/22/23 1021 by Tanvi Gant RN documented in this encounter Social History Tobacco Use Types Packs/Day Years [...] on file documented as of this encounter OR Notes * Anesthesia Postprocedure Evaluation - Marisol Funez MD - 10/22/2023 5:26 AM EST Department of Anesthesiology Post-procedure Note Patient: Narcisa Eduardo Procedure Summary Date: 10/21/23 Room / Location: [facility] OR [address] [place] [address] MAIN OR Anesthesia Start: 1236 Anesthesia Stop: 1717 Procedures: NEPHROLITHOTOMY, (PCNL) PERCUTANEOUS, COMPLEX (EG STONE > 2CM) (WRVU 20.91) (Right: Flank) CYSTOURETHROSCOPY WITH UTETEROSCOPY, W\REMOVAL, MANIPULATION OF CALCULUS (WRVU 6.75) (Left: Ureter) CYSTOURETEROSCOPY, DIAGNOSTIC (WRVU 5.75) (Right: Ureter) NEPHROSTOMY CATHETER, PERC, INC DX NEPHROSTOGRAM/URETEROGRAM, IMG GUIDANCE (WRVU 4) (Right: Abdomen) ULTRASONIC GUIDANCE, INTRAOP (WRVU 1.2) CYSTO, REMOVAL OF STENT, FOREIGN BODY OR CALCULUS, SIMPLE (WRVU 2.81) (Bilateral: Ureter) Diagnosis: (RIGHT STONE) Surgeons: Adan Navarrete Jr., MD Responsible Provider: Marisol Funez MD Anesthesia Type: general ASA Status: 3 All Anesthesia Providers: Anesthesiologist: Marisol Funez MD ELECTRONIC NEWS GATHERING CAMERA PERSON: Oriana Guzman CRNA Vitals Value Taken Time BP 120/71 10/21/23 1900 Temp 36.1 ??C (97 ??F) 10/21/23 1830 Pulse 59 10/21/23 1834 Resp 17 10/21/23 1834 SpO2 98 % 10/21/231957 Pain Level 3 10/21/231927 Vitals shown include unfiled device data. Patient Location: PACU/[facility] Level of Consciousness: Conscious but Sleepy Pain Management: Satisfactory Analgesia PONV: None Cardiovascular Status: Hemodynamically Stable Respiratory Status: At Baseline Postoperative Fluid Status: Intravascular EUvolemia Possible Anesthetic Complications: NONE apparent at time of evaluation Final Primary Anesthesia Type: General (The anesthetic type performed was the same as planned.) Comments: * Anesthesia Preprocedure Evaluation - Marisol Funez MD - 10/21/2023 9:49 AM EST Pre-Anesthesia Evaluation for: Narcisa Eduardo a 78 y.o. male. Procedure(s): NEPHROLITHOTOMY, (PCNL) PERCUTANEOUS, COMPLEX (EG STONE > 2CM) (WRVU 20.91) NEPHROSTOMY CATHETER, PERC, INC DX NEPHROSTOGRAM/URETEROGRAM, IMG GUIDANCE (WRVU 4) CYSTOURETHROSCOPY WITH UTETEROSCOPY, W\REMOVAL, MANIPULATION OF CALCULUS (WRVU 6.75) CYSTO, REMOVAL OF STENT, FOREIGN BODY OR CALCULUS, SIMPLE (WRVU 2.81) ULTRASOUND, INTRAOP, ABDOMINAL, SINGLE ORGAN (WRVU 0.59) MODIFIER HOLMIUM LASER Patient Active Problem List Diagnosis Date Noted ??? Severe protein-calorie malnutrition 02/25/2021 ??? Trauma 02/18/2021 ??? Brain aneurysm 09/09/2020 ??? Intracranial bleed 09/02/2020 ??? Malignant neoplasm of prostate 01/05/2020 ??? 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 AAA (abdominal aortic aneurysm) ??? CVA (cerebral vascular accident) 09/28/2019 ??? EtOH dependence h/o quit 09/2019 after stroke ??? HTN (hypertension) ??? Nicotine dependence ??? 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 Seizures ??? Thoracic aortic aneurysm ??? Trauma Past Surgical History: Procedure Laterality Date ??? COLONOSCOPY 2012 date is approximate. at [facility] Dr Ko ? ? PRO CYSTO W URETEROSCOPY &/OR PYELOSCOPY, DX Right 08/05/2023 CYSTOURETEROSCOPY, DIAGNOSTIC (WRVU 5.75) performed by Adan Navarrete Jr., MD at [facility] MAIN OR ??? PRO CYSTO/URETEROSCOPY W/LITHOTRIPSY INC INDWELLING STENT INSERTION Left 08/05/2023 CYSTOURETEROSCOPY,DIAGNOSTIC,W/ LITHOTRIPSY INC. INSERTION OF INDWELLING URETERAL STENT (WRVU 8) performed by Adan Navarrete Jr., MD at [facility] MAIN OR ??? PRO CYSTOSCOPY, INSERT URETERAL STENT Right 08/05/2023 CYSTO, STENT PLACEMENT (WRVU 2.82) performed by Adan Navarrete Jr., MD at [facility] MAIN OR ??? PROSTATE BIOPSY 11/23/2019 Social History Tobacco Use ??? Smoking status: Every Day Packs/day: 1 Types: Cigarettes Start date: 1963 ??? Smokeless tobacco: Never ??? Tobacco comments: rolls on cigarettes smokes less then 20 a day Substance Use Topics ??? Alcohol use: Not Currently Comment: 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 Social History Substance and Sexual Activity Drug Use Not Currently Allergies Allergen Reactions ??? Contrast [Iodine And Iodide Containing Products] Hives ??? Depakote [Divalproex] Other (See Comments) Thrombocytopenia and spontaneous bleeding Medications: MAR and/or home medications have been reviewed. Physical Exam: Preprocedure Vitals Current as of 10/21/23 0949 No BP, pulse, respiration, SpO2, or temperature recorded. Height: Weight: BMI: IBW: Airway Assessment: Mallampati: II TM distance: >3 FB Neck ROM: full Cardiovascular Assessment: Rhythm: regular Rate: normal Pulmonary Assessment: unlabored breathing Dental Assessment: Comment: Poor dentition and missing several teeth Misc Assessment: IV access: Peripheral line Last Filed Perioperative Cognitive Screening None Anesthesia Plan: ASA 3 general, with a(n) intravenous induction 78M smoker with a h/o AAA, thoracic aortic aneurysm, HTN, prior alcohol abuse, CVA in early 2019, follicular lymphoma, prostate cancer and nephrolithiasis s/p multiple procedures, most recently with bilateral ureteral stent placement in July, now presenting for right PCNL and left ureteral stent exchange. Chart reports post-op seizure in December 2022, maintained on lacosamide, and post-op delirium. Plan for GA w/ ETT, prone positioning, limited narcotic and Precedex given risk of post-op delirium. Region - Other Informed Consent: Anesthetic plan and risks discussed with patient. Plan discussed with ELECTRONIC NEWS GATHERING CAMERA PERSON. Anesthesia Screening documented in this encounter Plan of Treatment Upcoming Encounters Date Type Department Care Team (Late st Contact Info) Description 11/09/2024 10:30 AM EDT Office Visit Radiation Oncology at [address] [phone] Taya De La Vega PA [facility] DR HEMATOLOGY [place] [address] 11/13/2024 2:00 PM EDT Office Visit Hematology/Oncology at [address] [phone] Kirt Kennedy MD [facility] DR HEMATOLOGY [place] [address] Alem Lazaro APRN [address] [place] [address] DR HEMATOLOGY AND ONCOLOGY [place], [place] [address] documented as of this encounter Visit Diagnoses Not on filedocumented in this encounter Administered Medications Inactive Administered Medications - up to 3 most recent administrations Medication Order MAR Action Action Date Dose Rate Site ceFAZolin (Ancef) 2 g vial attach to sodium chloride 0.9% 100 mL Mini-Bag Plus 2 g, Intravenous, VALIDATION LEADER TO O.R., 1 dose, On Brisa 10/21/23 at 1045, Administer over 30 Minutes, Day of Surgery (Day of Procedure), Indication for (Active or Suspected): Prophylaxis New Bag 10/21/2023 1:07 PM EST 2 g dexAMETHasone (Decadron) injection Intravenous, PRN, Starting on Brisa 10/21/23 at 1307, Until Brisa 10/21/23 at 1722, Anesthesia Intra-op, Routine Given 10/21/2023 1:07 PM EST 8 mg dexmedeTOMIDine (Precedex) (4 mcg/mL) bolus injection (Anesthsia) Intravenous, PRN, Starting on Brisa 10/21/23 at 1437, Until Brisa 10/21/23 at 1722, Anesthesia Intra-op, Routine Given 10/21/2023 4:39 PM EST 4 mcg Given 10/21/2023 4:30 PM EST 4 mcg Given 10/21/2023 3:39 PM EST 4 mcg ePHEDrine sulfate (5 mg/mL) multi-dose injection Intravenous, PRN, Starting on Brisa 10/21/23 at 1256, Until Brisa 10/21/23 at 1723, Anesthesia Intra-op, Routine Given 10/21/2023 1:42 PM EST 5 mg Given 10/21/2023 1:00 PM EST 5 mg Given 10/21/2023 12:56 PM EST 5 mg esmoloL (Brevibloc) (10 mg/mL) injection Intravenous, PRN, Starting on Brisa 10/21/23 at 1252, Until Brisa 10/21/23 at 1722, Anesthesia Intra-op, Routine Given 10/21/2023 12:52 PM EST 50 mg fentaNYL (pf) (50 mcg/mL) multi-dose injection Intravenous, PRN, Starting on Brisa 10/21/23 at 1359, Until Brisa 10/21/23 at 1722, Anesthesia Intra-op, Routine Given 10/21/2023 2:36 PM EST 50 mcg Given 10/21/2023 2:11 PM EST 25 mcg Given 10/21/2023 1:59 PM EST 25 mcg fluconazole (Diflucan) 400 mg in sodium chloride 0.9% 200 mL infusion 400 mg, Intravenous, VALIDATION LEADER TO O.R., 1 dose, On Brisa 10/21/23 at 1045, Administer over 120 Minutes, Day of Surgery (Day of Procedure), Indication for (Active or Suspected): Prophylaxis, Restricted Antibiotic: Please indicate the most appropriate choice: Pre-approved indication (state the indication in comments field) Given 10/21/2023 1:23 PM EST 200 mg lactated ringers infusion Intravenous, CONTINUOUS PRN, Starting on Brisa 10/21/23 at 1201, Until Brisa 10/21/23 at 1722, Anesthesia Intra-op New Bag 10/21/2023 12:01 PM EST lidocaine (pf) (Xylocaine) (20 mg/mL) 2% injection syringe Intravenous, PRN, Starting on Brisa 10/21/23 at 1249, Until Brisa 10/21/23 at 1722, Anesthesia Intra-op, Routine Given 10/21/2023 12:49 PM EST 50 mg ondansetron (pf) (Zofran) (2 mg/mL) injection Intravenous, PRN, Starting on Brisa 10/21/23 at 1648, Until Brisa 10/21/23 at 1722, Anesthesia Intra-op, Routine Given 10/21/2023 4:48 PM EST 4 mg propofoL (Diprivan) (10 mg/mL) infusion Intravenous, CONTINUOUS PRN, Starting on Brisa 10/21/23 at 1307, Until Brisa 10/21/23 at 1722, Anesthesia Intra-op, Routine Rate/Dose Change 10/21/2023 1:48 PM EST 30 mcg/kg/min 9.576 mL/hr Rate/Dose Change 10/21/2023 1:31 PM EST 40 mcg/kg/min 12.7 68 mL/hr New Bag 10/21/2023 1:07 PM EST 50 mcg/kg/min 15.96 mL/h r propofoL (Diprivan) 10 mg/mL bolus injection (Anesthesia) Intravenous, PRN, Starting on Brisa 10/21/23 at 1249, Until Brisa 10/21/23 at 1722, Anesthesia Intra-op Given 10/21/2023 4:42 PM EST 20 mg Given 10/21/2023 12:52 PM EST 20 mg Given 10/21/2023 12:49 PM EST 100 mg rocuronium (Zemuron) (10 mg/mL) multi-dose injection Intravenous, PRN, Starting on Brisa 10/21/23 at 1249, Until Brisa 10/21/23 at 1722, Anesthesia Intra-op, Routine Given 10/21/2023 2:39 PM EST 20 mg Given 10/21/2023 1:54 PM EST 30 mg Given 10/21/2023 12:49 PM EST 50 mg sugammadex (Bridion) 100 mg/mL injection Intravenous, PRN, Starting on Brisa 10/21/23 at 1655, Until Brisa 10/21/23 at 1722, Anesthesia Intra-op, Routine Given 10/21/2023 4:55 PM EST 200 mg documented in this encounter Care Teams Sql Report Writer Relationship Specialty Start Date End Date Amanda Pino PA [address] [place] [address] PCP - General Internal Medicine 04/28/23 documented as of this encounter
--- OUTSIDE RECORDS SUMMARY | 2024-05-24 19:27 | XMS_ITS | Encounter Summary ---
Author Organization [facility] Address [facility] [place] [address] Care Team Providers Care International First Officer Name Role Phone Amanda Pino Primary Care Provider [phone] Encounter Details Date Type Department Care Team (Late st Contact Info) Description 11/11/2023 10:30 AM EDT Office Visit Radiation Oncology at [address] [phone] Taya De La Vega PA [facility] DR HEMATOLOGY [place] [address] Malignant neoplasm of prostate (Primary Dx); S/P [...] Sign Reading Time Taken Comments Blood Pressure 111/58 11/11/2023 10:41 AM EDT Pulse 80 11/11/2023 10:41 AM EDT Temperature 36.8 ??C (98.3 ??F) 11/11/2023 1 0:41 AM EDT Respiratory Rate 18 11/11/2023 10:4 1 AM EDT Oxygen Saturation 98% 11/11/2023 10: 41 AM EDT Inhaled Oxygen Concentration - - Weight 56.2 kg (123 lb 12.8 oz) 024 10:41 AM EDT Height 177.8 cm (5' 10) 11/11/2023 10: 41 AM EDT Body Mass Index 17.76 11/11/2023 10:41 AM EDT documented in this encounter Progress Notes * Taya De La Vega PA - 11/11/2023 10:30 AM EDT [facility] [place] [address] FOLLOW-UP: Patient: Narcisa Eduardo : 1945 PCP: Amanda Pino PA-C ([facility]) Urologist: Adan Navarrete Jr., MD ([facility]; last seen 09/06/23), also sees Urology at [facility] Radiation Oncologist: Que Evans MD Chief Complaint: Follow-up for 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 TRUS biopsyon 11/23/19 showed Allie 4+3 x 1 on the left, [place] 3+4 x 3 bilaterally, and [place] 3+3 x 2 bilaterally. On 12/01/19, patient saw Dr. Thomas at the [facility], who discussed various treatment options. Patient [...] a history. He follows with Neurology at [facility] (Dr. Wendie Garcia). He also has a history of follicular lymphoma, managed by Dr. Kennedy at [facility]. [facility] and is currently on surveillance with annual labs. Interval Symptoms Since Last Visit on 06/17/23: General: Feels okay today. Pain: 0/10 Fatigue/Activity Level: Watches TV. Denies fatigue. Weight/Appetite/Diet: Weight stable today compared to 05/2023. No recent appetite changes, continues to report [...] hydration c/b urosepsis requiring catheterization. Patient and unsure of last UTI, possibly in 09/2023. Follows with Urology for bilateral nephrolithiasis requiring ureteroscopy and stenting. Most recently underwent percutaneous nephrolithotomy on 10/21/23. No acute changes. Today, patient reports feeling like he is able to fully empty his bladder, but then might have to urinate again shortly after. Reports nocturia 2-3 times per night, but not every night. Takes Flomax 0.4 mg PO BID, managed by Urology. Denies hematuria, dysuria, difficulty initiating urination. Sexual Health: No acute concerns. Does not want to discuss further. Musculoskeletal: No acute changes. Per , patient has generalized weakness d/t inactivity. Bone Health: No residual pain/issues after completing PT for left shoulder fracture/injury that occurred in March 2023. Takes a Vitamin D supplement. Neurological: H/o stroke, brain bleeds, and seizures. On Vimpat 200 mg BID, last seizure in 02/2023.Follows with Neurology. Denies headaches, peripheral neuropathy. Mood: Denies new anxiety or depression. Tobacco Use: Smokes 1 PPD x 50 years. Not interested in quitting at this time. Alcohol Use: None since stroke. Social Support: . IPSS and RISHABH (patient entered, provider reviewed), last 5 values: Prostate IPSS and RISHABH(Pt Entered): last 5 values 10/23/2021 10:26 AM 10/22/2022 1:01 PM 06/17/2023 11:03 AM 11/11/2023 10:46 AM 11/11/2023 10:47 AM Prostate Today's Scores Sexual Health Inventory for Men 24 25 4 (Severe ED) 3 (Severe ED) 6 (Severe ED) International Prostate Symptom Score 15 (Moderate LUTS) 15 (Moderate LUTS) 15 (Moderate LUTS) 18 (Moderate LUTS) Allergies: Allergies Allergen Reactions Contrast [Iodine And Iodide Containing Products] Hives Depakote [Divalproex] Other (See Comments) Thrombocytopenia and spontaneous bleeding Current Medications: Current Outpatient Medications on File Prior to Visit Medication Sig Dispense Refill fluconazole (Diflucan) 200 mg tablet Take 1 tablet by mouth daily. Please start taking on 11/04 for 3 days prior to your planned procedure. 3 tablet 0 aspirin EC 81 mg EC (DR) [...] Tablet Take 80 mg by mouth daily. cephALEXin (Keflex) 500 mg capsule Take 1 capsule by mouth 3 times daily. (Patient not taking: Reported on 11/11/2023) 21 capsule 0 [DISCONTINUED] mirtazapine (Remeron) 15 mg Tablet TAKE ONE-HALF TABLET BY MOUTH AT BEDTIME FOR DEPRESSION/MOOD No current facility-administered medications on file prior [...] 24 hrs: Temp Pulse Resp BP SpO2 11/11/23 1041 36.8 ??C (98.3 ??F) 80 18 111/58 98 % Constitutional: well-groomed, mildly conversant. NAD. HEENT: normocephalic. PERRL, EOMI, sclerae anicteric, conjunctivae non-injected. Moist mucous membranes, no thrush or oral lesion. Neck: supple, trachea midline. No adenopathy. Respiratory: non-labored respirations with symmetrical expansion. Lungs CTA bilaterally. Cardiovascular: RRR without murmurs or gallops. No peripheral edema. Abdomen: soft, non-tender, no palpable masses. Normoactive bowel sounds x 4 quadrants. Musculoskeletal: moving all extremities ad fátima. NEHA. No swelling or deformity. Neurologic: alert and oriented x 3. Speech clear and coherent. Cranial nerves II-XII grossly intact. Normal gait, ambulates with a cane. Skin: warm, dry, pink, intact. Psychiatric: mood is euthymic, affect is congruent. Insight and judgement are good. Labs Reviewed This Visit: Date PSA Testosterone Notes 11/03/19 12.9 04/26/20 Completed RT 07/16/20 3.1 399 10/24/20 1.4 309 04/17/21 0.64 10/15/21 0.30 252 04/15/22 0.23 375 10/15/22 0.17 05/19/23 0.17 11/03/23 0.22 Assessment & Plan: #Prostate cancer: - Labs reviewed from 11/03/23: PSA 0.22, remains low/stable. - No acute/concerning reported symptoms or physical exam findings. - Per NCCN guidelines, PSA and H&P due every 6 months x 5 years s/p RT completion, then annually (PSA may be checked more frequently depending on risk level or other patient-specific factors). ERIKA if suspicious for recurrence. - Next PSA and H&P due 6 months from last labs (04/2024). #Effects of EBRT: - Completed definitive RT [...] provided: none #Referrals placed: none Follow-Up: Next visit: 6 months (04/2024) Labs ([facility]): PSA Narcisa Eduardo had the opportunity to [...] AM EDT Office Visit Radiation Oncology at [address] [phone] Taya De La Vega PA [facility] DR HEMATOLOGY [place] [address] 11/13/2024 2:00 PM EDT Office Visit Hematology/Oncology at [address] [phone] Kirt Kennedy MD [facility] DR HEMATOLOGY [place] [address] Alem Lazaro APRN [address] [place] [address] DR HEMATOLOGY AND ONCOLOGY [place], [place] [address] documented as of this encounter Visit Diagnoses Diagnosis Malignant neoplasm of prostate- Primary S/P radiotherapy Convalescence following radiotherapy documented in this encounter Care Teams International First Officer Relationship Specialty Start Date End Date Amanda Pino PA [address] [place] [address] PCP - General Internal Medicine 04/28/23 documented as of this encounter
--- OUTSIDE RECORDS SUMMARY | 2024-05-24 19:27 | XMS_ITS | Encounter Summary ---
Author Organization [facility] Address [address] [place] [address] Care Team Providers Care Marketing Communications Specialist Name Role Phone Jan Alfredo Jorge GARDNER Primary Care Provider Encounter Details Date Type Department Care Team (Late st Contact Info) Description 06/09/2021 Lab Requisition [facility] Pathology & Laboratory Medicine - [address] [address] America Cohn MD [address] [place] [address] Encounter for other general examination Social History [...] Procedure Name Priority Date/Time Associated Diagnosis Comments SURGICAL PATHOLOGY Today 06/06/2021 11 :45 EDT Encounter for other general examination documented in this encounter Results * SURGICAL PATHOLOGY (06/06/2021 11:45 EDT) Note to Patient The following pathology results have been interpreted by your pathologist and may be available to you before your health provider has had the opportunity to review them. Please allow time for your provider to receive these results and explore management options, if applicable. 06/10/2021 12:51 EDT [facility] Final Diagnosis A. SKIN OF GROIN, RIGHT, SHAVE BIOPSY: - Benign verruciform keratosis, consistent with verruca vulgaris. See microscopic. 06/10/2021 12:51 EDT [facility] Attestation By the signature below, the attending physician certifies that they have 1) personally conducted a gross and/or microscopic examination of the described specimen(s), and/or personally interpreted the results of laboratory testing of the described specimen(s), and 2) personally rendered or confirmed the above diagnosis. 06/10/2021 12:51 [facility] at 1251 Microscopic Description The findings show an acanthotic and verruciform keratosis. Scattered viral cytopathic effect with abrupt parakeratosis is noted favoring a viral-related process. The features are most suggestive of a verruca vulgaris. 06/10/2021 12:51 [facility] Clinical History Pigmented lesion right groin; clinical diagnosis code: D49.2 06/10/2021 12:51 [facility] Gross Description A. Received in formalin labelled with proper patient identification (initials W, W) and R groin lesion is a fragmented irregular skin lesion, 2.5 x 1.5 x 0.8 cm. The surface of the lesion is waxy mahoney-valdovinos to brown, smooth to lobulated. The margin is inked. Sections show a friable mahoney-white cut surface. Entirely submitted as follows: BLOCK VASQUEZ A1- tips, reverse en face A2-A4- 4 central sections MARISOL HOGAN(ASCP) 06/09/2021 17:32 06/10/2021 12:51 T [facility] Performing Lab [facility] 06/10/2021 12:51 [facility] Scanned Images 06/10/2021 12:51 [facility] Tissue TISSUE SPECIMEN FROM SKIN / Unknown 06/06/2021 11:45 EDT 06/09/2021 17:01 EDT America Cohn MD PATHOLOGY ORDERABLES [facility] [address] [place] [address] documented in this encounter Visit Diagnoses Diagnosis Encounter for other general examination documented in this encounter Care Teams Marketing Communications Specialist Relationship Specialty Start Date End Date Alfredo Montoya DO [address] [place] [address] PCP - General Internal Medicine - Primary Care 05/23/21 documented as of this encounter
--- OUTSIDE RECORDS SUMMARY | 2024-05-24 19:27 | XMS_ITS | Encounter Summary ---
Author Organization [facility] Address [facility] [place] [address] Care Team Providers Care Chain Sales Consultant Name Role Phone Amanda Pino Primary Care Provider [phone] Encounter Details Date Type Department Care Team (Late st Contact Info) Description 10/23/2023 [place] [phone] Theodore Devi MD [facility] [place] [place] [address] Social History Tobacco Use Types Packs/Day Years [...] encounter Miscellaneous Notes * Telephone Encounter - Theodore Devi MD - 10/23/2023 10:08 AM EST Intra op Cx: Component Urine Culture 1,000-9,000 cfu/ml Keysha parapsilosis Abnormal Organism Keysha parapsilosis Abnormal Rx: fluconazole 3 days prior to second look. Patient's spouse was called as he was in the bathroom;they expressed understanding. documented in this encounter Plan of Treatment Upcoming Encounters Date Type Department Care Team (Late st Contact Info) Description 11/09/2024 10:30 AM EDT Office Visit Radiation Oncology at [address] [phone] Taya De La Vega PA [facility] [place] [address] 11/13/2024 2:00 PM EDT Office Visit Hematology/Oncology at [address] [phone] Kirt Kennedy MD [facility] [place] [address] Alem Lazaro APRN [address] [place] [address] DR HEMATOLOGY AND ONCOLOGY [place], [place] [address] documented as of this encounter Visit Diagnoses Not on filedocumented in this encounter Care Teams Chain Sales Consultant Relationship Specialty Start Date End Date Amanda Pino PA [address] [place] [address] PCP - General Internal Medicine 04/28/23 documented as of this encounter
--- OUTSIDE RECORDS SUMMARY | 2024-05-24 19:27 | XMS_ITS | Encounter Summary ---
Author Organization [facility] Address [facility] [place] [address] Care Team Providers Care Lead Miner Blasting Name Role Phone Amanda Pino Primary Care Provider Encounter Details Date Type Department Care Team (Latest Contact Info) Description 11/15/2023 Travel Social History Tobacco Use Types Packs/Day Years [...] AM EDT Office Visit Radiation Oncology at [address] [phone] Taya De La Vega PA [facility] DR HEMATOLOGY [place] [address] 11/13/2024 2:00 PM EDT Office Visit Hematology/Oncology at [address] [phone] Kirt Kennedy MD [facility] DR HEMATOLOGY [place] [address] Alem Lazaro APRN [address] [place] [address] DR [place] [address] documented as of this encounter Visit Diagnoses Not on filedocumented in this encounter Care Teams Lead Miner Blasting Relationship Specialty Start Date End Date Amanda Pino PA [address] [place] [address] PCP - General Internal Medicine 04/28/23 documented as of this encounter
--- OUTSIDE RECORDS SUMMARY | 2024-05-24 19:27 | XMS_ITS | Encounter Summary ---
Author Organization [facility] Address [facility] [place] [address] Care Team Providers Care Bellmaker Name Role Phone Amanda Pino Primary Care Provider [phone] Encounter Details Date Type Department Care Team (Latest Contact Info) Description 11/11/2023 Travel Social History Tobacco Use Types Packs/Day [...] AM EDT Office Visit Radiation Oncology at [address] [phone] Taya De La Vega PA [facility] DR HEMATOLOGY [place] [address] 11/13/2024 2:00 PM EDT Office Visit Hematology/Oncology at [address] [phone] Kirt Kennedy MD [facility] DR HEMATOLOGY AND [place] [address] Alem Lazaro APRN [address] [place] [address] DR HEMATOLOGY [place] [address] documented as of this encounter Visit Diagnoses Not on filedocumented in this encounter Care Teams Bellmaker Relationship Specialty Start Date End Date Amanda Pino PA [address] [place] [address] PCP - General Internal Medicine 04/28/23 documented as of this encounter
--- OUTSIDE RECORDS SUMMARY | 2024-05-24 19:27 | XMS_ITS | Encounter Summary ---
Author Organization [facility] Address [facility] [place] [address] Care Team Providers Care Sample Hand Name Role Phone Amanda Pino Primary Care Provider [phone] Encounter Details Date Type Department Care Team (Late st Contact Info) Description 11/24/2023 [place] [phone] Adan Navarrete Jr., MD [facility] [place] [address] Social History Tobacco Use Types Packs/Day Years [...] encounter Miscellaneous Notes * Telephone Encounter - Adan Navarrete Jr., MD - 11/24/2023 2:38 PM EDT I called and discussed planned follow up. We had scheduled bilateral ureteroscopy (2nd look right URS to remove possible 2-3mm residual fragment after PCNL for otherwise complete removal of large staghorn stone; AND left ureteroscopy for large left renal stones not yet addressed). However, [facility] did not extend approval for surgicalcare here at [facility], and after discussion with [place] chief of urology Dr Smith, I was informed they could perform the bilateral ureteroscopy at the [facility] and thus did not need intervention at [facility]. I explained to patient and his that they will need to pursue follow up at [facility] for 2nd look ureteroscopy and stent removal/exchange, but offered that I would be happy to be available at [facility] at any time if they cannot arrange timely follow up at the [place]. Stets were placed 10/21/23, Demario recommended stents should be removed or exchanged within maximum 10-12 weeks They agree to call us if needed if stents not addressed in that time frame documented in this encounter Plan of Treatment Upcoming Encounters Date Type Department Care Team (Late st Contact Info) Description 11/09/2024 10:30 AM EDT Office Visit Radiation Oncology at [address] [phone] Taya De La Vega PA [facility] DR HEMATOLOGY [place] [address] 11/13/2024 2:00 PM EDT Office Visit Hematology/Oncology at [address] [phone] Kirt Kennedy MD [facility] HEMATOLOGY [place] [address] Alem Lazaro APRN [address] [place] [address] DR HEMATOLOGY AND ONCOLOGY [place], [place] [phone] documented as of this encounter Visit Diagnoses Not on filedocumented in this encounter Care Teams Sample Hand Relationship Specialty Start Date End Date Amanda Pino PA [address] [place] [address] PCP - General Internal Medicine 04/28/23 documented as of this encounter
--- OUTSIDE RECORDS SUMMARY | 2024-05-24 19:27 | XMS_ITS | Encounter Summary ---
Author Organization [facility] Address [facility] [place] [address] Care Team Providers Care Counselor Aid Name Role Phone Amanda Pino Primary Care Provider [phone] Encounter Details Date Type Department Care Team (Late Contact Info) Description 10/27/2023 [place] [address] Cortez Arrington MD [facility] [place] [address] Social History Tobacco Use Types Packs/Day Years [...] AM EDT Office Visit Radiation Oncology at [address] [phone] Taya De La Vega PA [facility] DR HEMATOLOGY [place] [address] 11/13/2024 2:00 PM EDT Office Visit Hematology/Oncology at [address] [phone] Kirt Kennedy MD [facility] DR HEMATOLOGY [place] [address] Alem Lazaro APRN [address] [place] [address] DR HEMATOLOGY AND ONCOLOGY [place], [place] [phone] documented as of this encounter Visit Diagnoses Not on filedocumented in this encounter Care Teams Counselor Aid Relationship Specialty Start Date End Date Amanda Pino PA [address] [place] [address] PCP - General Internal Medicine 04/28/23 documented as of this encounter
--- OUTSIDE RECORDS SUMMARY | 2024-05-24 19:27 | XMS_ITS | Encounter Summary ---
Author Organization [facility] Address [facility] [place] [address] Care Team Providers Care Fabrication And Assembly Supervisor Name Role Phone Amanda Pino Primary Care Provider [phone] Encounter Details Date Type Department Care Team (Latest Contact Info) Description 09/06/2023 Travel Social History Tobacco Use Types Packs/Day [...] AM EDT Office Visit Radiation Oncology at [address] [phone] Taya De La Vega PA [facility] DR HEMATOLOGY AND [place] [address] 11/13/2024 2:00 PM EDT Office Visit Hematology/Oncology at [address] [phone] Kirt Kennedy MD [facility] DR HEMATOLOGY [place] [address] Alem Lazaro APRN [address] [place] [address] DR HEMATOLOGY [place] [address] documented as of this encounter Visit Diagnoses Not on filedocumented in this encounter Care Teams Fabrication And Assembly Supervisor Relationship Specialty Start Date End Date Amanda Pino PA [address] [place] [address] PCP - General Internal Medicine 04/28/23 documented as of this encounter
--- OUTSIDE RECORDS SUMMARY | 2024-05-24 19:27 | XMS_ITS | Encounter Summary ---
Author Organization [facility] Address [facility] [place] [address] Care Team Providers Care House Sitter Name Role Phone Amanda Pino Primary Care Provider [phone] Encounter Details Date Type Department Care Team (Latest Contact Info) Description 05/11/2024 Travel Social History Tobacco Use Types Packs/Day [...] AM EDT Office Visit Radiation Oncology at [address] [phone] Taya De La Vega PA [facility] DR HEMATOLOGY [place] [address] 11/13/2024 2:00 PM EDT Office Visit Hematology/Oncology at [address] [phone] Kirt Kennedy MD [facility] DR [place] [address] Alem Lazaro APRN [address] [place] [address] DR [place] [address] documented as of this encounter Visit Diagnoses Not on filedocumented in this encounter Care Teams House Sitter Relationship Specialty Start Date End Date Amanda Pino PA [address] [place] [address] PCP - General Internal Medicine 04/28/23 documented as of this encounter
--- OUTSIDE RECORDS SUMMARY | 2024-05-24 19:27 | XMS_ITS | Encounter Summary ---
Author Organization [facility] [place] [address] Care Team Providers Care Processor Grain Name Role Phone Amanda Pino Primary Care Provider [phone] Encounter Details Date Type Department Care Team (Late st Contact Info) Description 11/15/2023 Telephone Urology at [facility] [place] [address] Lurdes Vila APRN [facility] [place] [address] Social History Tobacco Use Types Packs/Day Years [...] encounter Miscellaneous Notes * Telephone Encounter - Lurdes Vila APRN - 11/15/2023 12:12 PM EDT Urine culture order refaxed to [facility] lab. documented in this encounter Plan of Treatment Upcoming Encounters Date Type Department Care Team (Late st Contact Info) Description 11/09/2024 10:30 AM EDT Office Visit Radiation Oncology at [address] [phone] Taya De La Vega PA [facility] [place] [address] 11/13/2024 2:00 PM EDT Office Visit Hematology/Oncology at [address] [phone] Kirt Kennedy MD [facility] [place] [address] Alem Lazaro APRN [address] [place] [address] DR HEMATOLOGY AND ONCOLOGY [place], [place] [address] documented as of this encounter Visit Diagnoses Not on filedocumented in this encounter Care Teams Processor Grain Relationship Specialty Start Date End Date Amanda Pino PA [address] [place] [address] PCP - General Internal Medicine 04/28/23 documented as of this encounter
--- OUTSIDE RECORDS SUMMARY | 2024-05-24 19:27 | XMS_ITS | Clinical Summary ---
Author Organization [facility] Address [address] [place] [address] Care Team Providers Care System Support Specialist Name Role Phone Jan Alfredo Jorge GARDNER Primary Care Provider [phone] Social History Tobacco Use Types Packs/Day Years Used Date Smoking Tobacco: Never Assessed Sex and Gender Information Value Date Recorded Sex Assigned at Not on file Gender Identity Not on file Sexual Orientation Not on file Plan of Treatment Health Maintenance Due Date Last Done Comments Hepatitis C Screen 1945 RSV Immunization ( o r 60+ Years) (1 - 1-dose 60+ series) 2005 Fall Risk Screening 2010 COVID-19 Vaccine (2022- season) 2023 Care Teams System Support Specialist Relationship Specialty Start Date End Date Alfredo Montoya DO [address] [place] [id number] PCP - General Internal Medicine - Primary Care 05/23/21
--- OUTSIDE RECORDS SUMMARY | 2024-05-24 19:27 | XMS_ITS | Encounter Summary ---
Author Organization [facility] Address [facility] [place] [address] Care Team Providers Care Convolute Tube Winder Name Role Phone Amanda Pino Primary Care Provider [phone] Encounter Details Date Type Department Care Team (Late Contact Info) Description 10/22/2023 [place] [phone] Solange Shrestha PA [facility] [place] [address] Nephrolithiasis Social History Tobacco Use Types Packs/Day Years [...] AM EDT Office Visit Radiation Oncology at [address] [phone] Taya De La Vega PA [facility] DR HEMATOLOGY [place] [address] 11/13/2024 2:00 PM EDT Office Visit Hematology/Oncology at [address] [phone] Kirt Kennedy MD [facility] DR HEMATOLOGY [place] [address] Alem Lazaro APRN [address] [place] [address] DR HEMATOLOGY AND ONCOLOGY [place], [place] [phone] documented as of this encounter Visit Diagnoses Diagnosis Nephrolithiasis Calculus of kidney documented in this encounter Care Teams Convolute Tube Winder Relationship Specialty Start Date End Date Amanda Pino PA [address] [place] [address] PCP - General Internal Medicine 04/28/23 documented as of this encounter
--- OUTSIDE RECORDS SUMMARY | 2024-05-24 19:28 | XMS_ITS | Encounter Summary ---
Author Organization [facility] Address [facility] [place] [address] Care Team Providers Care Test Center Administrator Name Role Phone Amanda Pino Primary Care Provider [phone] Encounter Details Date Type Department Care Team (Latest Contact Info) Description 06/17/2023 Travel Social History Tobacco Use Types Packs/Day Years Used Date Smoking Tobacco: Every Day Cigarettes 1 60.8 Started: 1963 Smokeless Tobacco: Never Comments:rolls on cigarettes smokes less then 20 a day Alcohol Use Standard Drinks/Week Comments Not Currently 0 (1 standard drink = 0.6 oz pure alcohol) 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 Sex and Gender Information Value Date Recorded Sex Assigned at Not on file Gender Identity Not on file Sexual Orientation Not on file documented as of this encounter Plan of Treatment Upcoming Encounters Date Type Department Care Team (Late st Contact Info) Description 11/09/2024 10:30 AM EDT Office Visit Radiation Oncology at [address] [phone] Taya De La Vega PA [facility] DR HEMATOLOGY [place] [address] 11/13/2024 2:00 PM EDT Office Visit Hematology/Oncology at [address] [phone] Kirt Kennedy MD [facility] DR HEMATOLOGY [place] [address] Alem Lazaro APRN [address] [place] [address] DR HEMATOLOGY [place] [address] documented as of this encounter Visit Diagnoses Not on filedocumented in this encounter Care Teams Test Center Administrator Relationship Specialty Start Date End Date Amanda Pino PA [address] [place] [address] PCP - General Internal Medicine 04/28/23 documented as of this encounter
--- OUTSIDE RECORDS SUMMARY | 2024-05-24 19:28 | XMS_ITS | Encounter Summary ---
Author Organization [facility] [place] [address] Care Team Providers Care General Car Yard Supervisor Name Role Phone Alfredo Montoya DO Primary Care Provider [phone] Encounter Details Date Type Department Care Team (Late Contact Info) Description 02/26/2021 Telephone [place] [phone] Yuliya Kramer Social History Tobacco Use Types Packs/Day Years [...] encounter Miscellaneous Notes * Telephone Encounter - Yuliya Kramer - 02/26/2021 4:25 PM EDT Received telephone call from [facility] regarding prescription written for Vancomycin 50 mg/ml recon solution. Pharmacy does not have in stock and was asking for permission to convert to tablet. Text page sent to prescriber (Leanna EMMANUEL) to call pharmacy [facility] at [phone] documented in this encounter Plan of Treatment Upcoming Encounters Date Type Department Care Team (Late st Contact Info) Description 11/09/2024 10:30 AM EDT Office Visit Radiation Oncology at [address] [phone] Taya De La Vega PA [facility] DR [place] [address] 11/13/2024 2:00 PM EDT Office Visit Hematology/Oncology at [address] [phone] Kirt Kennedy MD [facility] DR [place] [address] Alem Lazaro APRN [address] [place] [address] DR HEMATOLOGY AND ONCOLOGY [place], [place] [phone] documented as of this encounter Visit Diagnoses Not on filedocumented in this encounter Care Teams General Car Yard Supervisor Relationship Specialty Start Date End Date Alfredo Montoya DO [address] [place] [phone] PCP - General Internal Medicine 12/04/19 04/27/23 documented as of this encounter
--- OUTSIDE RECORDS SUMMARY | 2024-05-24 19:28 | XMS_ITS | Encounter Summary ---
Author Organization [facility] Address [facility] [place] [address] Care Team Providers Care Data Collection Associate Name Role Phone Alfredo Montoya DO Primary Care Provider [phone] Encounter Details Date Type Department Care Team (Late st Contact Info) Description 10/23/2021 10:15 AM EST Office Visit Radiation Oncology at [address] [phone] Jen Eugene APRN [facility] [place] [address] Malignant neoplasm of prostate (Primary Dx) Social History Tobacco Use Types Packs/Day Years [...] Sign Reading Time Taken Comments Blood Pressure 131/64 10/23/2021 10:13 AM EST Pulse 71 10/23/2021 10:13 AM EST Temperature 36.7 ??C (98.1 ??F) 10/23/2021 10:[address] Respiratory Rate 18 10/23/2021 10:13 AM EST Oxygen Saturation 98% 10/23/2021 10:13 AM EST Inhaled Oxygen Concentration - - Weight 63 kg (139 lb) 10/23/2021 10:13 AM EST Height 177.8 cm (5' 10) 10/23/2021 10:13 AM EST Body Mass Index 19.94 10/23/2021 10:13 AM EST documented in this encounter Progress Notes * Jen Eugene, CASING COOKER - 10/23/2021 10:15 AM ESTSummary: 76 year old M dx Unfavorable Intermediate-Risk Prostate Cancer. Compl xrt 04/26/20 [facility] [place] [address] Phone: RADIATION ONCOLOGY FOLLOW UP NOTE Date of visit: 10/23/2021 Patient Narcisa Eduardo 1945 PCP: Alfredo Montoya DO Urologist: Radiation oncologist: Dr Que Evans Chief Complaint: follow up/labs/for prostate cancer Time since completed RT: 04/26/20 ADT:He declined ADT. Current treatment:Surveillance HPI: Narcisa Eduardo??is a 74 y.o.??male??diagnosed with an unfavorable intermediate- risk prostate cancer. ?? Presenting Symptoms / Duration:?? ePSA; per pt he has had ERIKA in past that did not show any nodules ?? Prior consultations / recommendations: Dr Thomas - [facility] - 12/01/19 - options of , RP, RT reviewed. Patient interested in learning more about RT. Referral placed.? PSA History:?? 11/03/19 - 12.9 ?? Pathology Results / Location:?? TRUS Bx 11/23/19 ([facility]) - ?Gl 4+3 x 1 - Left ?Gl 3+4 x 3 - Bilat ?Gl 3+3 x 2 - Bilat ?? Pertinent Imaging Studies:?? TRUS 11/23/19 - 46 cc gland ? RADIATION TREATMENT DETAILS: ?? Initial Treatment Site Pelvis, Entire SV and Prostate Prescribed Dose 45 Gy in 25 fractions ? Boost Treatment Site 1 Proximal SV and Prostate Prescribe Dose 68.4Gy in 38 fractions ? Boost Treatment Site 2 Prostate Prescribed Dose 79.2 Gy in 44 fractions ? Start Date End Date 02/27/20 04/26/20 Interim HPI: When asked how he is doing he relates history of brain aneurysm and challenges with memory. He required home care when he was discharged from the hospital and has had PT which has been helpful to himin regaining stamina and function. His is present during this visit in order to help with history, review his medications. In June pt and describe urosepsis admission to [facility]. Since recovering he has been successful in keeping the catheter out and voids on his own. He still does wake up at [facility] to void x 3 and is still taking one tamsulosin. He is also on prazosin which is prescribed by [facility]. I am uncertain if that is for PTSD nightmares, for BP or to add as aid to the urinary frequency. Past Medical History: Diagnosis Date ??? AAA (abdominal aortic aneurysm) ??? CVA (cerebral vascular accident) 09/28/2019 ??? EtOH dependence h/o quit 09/2019 after stroke ??? HTN (hypertension) ??? Nicotine dependence ??? 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 Seizures ??? Thoracic aortic aneurysm ??? Trauma Past Surgical History: Procedure Laterality Date ??? COLONOSCOPY [address] [facility] Dr Ko ??? PROSTATE BIOPSY 11/23/2019 Medications 05/01/21 1450 Medication Sig Taking? cholecalciferol, Vitamin D3, (Vitamin D3) 1,000 unit Tablet Take by mouth. Lactobacillus acidophilus (PROBIOTIC ORAL) TAKE ONE TABLET BY MOUTH EVERY DAY lacosamide (Vimpat) 200 mg Tablet Take 1 tablet by mouth 2 times daily. senna-docusate (Pericolace) 8.6-50 mg Tablet Take 1 tablet by mouth 2 times daily. Patient taking differently: Take 1 tablet by mouth as needed. tamsulosin (Flomax) 0.4 mg Capsule TAKE 1 CAPSULE BY MOUTH EVERY DAY 30 MINUTES AFTER THE SAME MEALTIME EACH DAY FOR PROSTATE/URINARY SYMPTOMS. multivit with minerals/lutein (MULTIVITAMIN 50 PLUS ORAL) Take by mouth. aspirin EC 81 mg Tablet, Delayed Release (E.C.) TAKE ONE TABLET BY MOUTH EVERY DAY TO PREVENT STROKE/HEART ATTACK OR FOR PAIN/SWELLING/INFLAMMATION folic acid (Folvite) 1 mg Tablet TAKE ONE TABLET BY MOUTH EVERY DAY VITAMIN/NUTRITION SUPPLEMENT potassium chloride ER (K-Dur/Klor-Con) 10 mEq Tablet Sustained Release TAKE ONE TABLET BY MOUTH EVERY DAY TO SUPPLEMENT POTASSIUM atorvastatin (Lipitor) 80 mg Tablet Take 80 mg by mouth daily. Allergies Allergen Reactions ??? Contrast [Iodine And Iodide Containing Products] Hives ??? Depakote [Divalproex] Other (See Comments) Thrombocytopenia and spontaneous bleeding Past Medical History: Diagnosis Date ??? AAA (abdominal aortic aneurysm) ??? CVA (cerebral vascular accident) 09/28/2019 ??? EtOH dependence h/o quit 09/2019 after stroke ??? HTN (hypertension) ??? Nicotine dependence ??? 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 Seizures ??? Thoracic aortic aneurysm ??? Trauma Past Surgical History: Procedure Laterality Date ??? COLONOSCOPY [address] [facility] Dr Ko ??? PROSTATE BIOPSY 11/23/2019 Family History Problem Relation Age of Onset ??? Prostate Cancer Father Social History Tobacco Use ??? Smoking status: Current Every Day Smoker Packs/day: 1.00 Types: Cigarettes Start date: 1963 ??? Smokeless tobacco: Never Used ??? Tobacco comment: rolls on cigarettes smokes less then 20 a day Vaping Use ??? Vaping Use: Never used Substance Use Topics ??? Alcohol use: Not Currently Comment: 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 ??? Drug use: Not Currently Review of Symptoms: I reviewed the IPSS/RISHABH/Epic-Cp survey results from today 10/23/2021 10:16 AM EST - Filed by Patient Urinary function problem Moderate problem Urinary control Frequent dribbling # of pads used per day Three or more pads Urinary dripping/leakage problem Moderate problem 5. How big a problem, if any, has each of the following been for you? Pain or burning with urination No problem Need to urinate frequently Moderate problem 6. How big a problem, if any, has each of the following been for you? Rectal pain or urgency of bowel movements No problem Increased frequency of your bowel movements Moderate problem Bloody stools No problem Ability to reach orgasm Fair Quality of your erections None at all 10. How big a problem, if any, has each of the following been for you? Feeling depressed Very small problem Urinary Incontinence Symptom Score (range: 0 - 12) 9 Urinary Irritation/Obstructive Symptom Score (range: 0 - 12) 3 Bowel Symptom Score (range: 0 - 16) 3 Vitality/Hormonal Symptom Score (range: 0 - 12) 1 Overall Prostate Cancer QOL Score (range: 0 - 60) 16 Q - Prostate Followup Survey Question 10/23/2021 10:26 AM EST - Filed by Patient Reason for visit Follow up on existing problem(s) Incomplete emptying Not at all Frequency More than half the time Intermittency Less than 1 time in 5 Urgency More than half the time Weak Stream Less than 1 time in 5 Straining Less than half the time Nocturia 3 times Quality of life Mixed - about equally satisfied and dissatisfied Total IPSS Score (range: 0 - 35) 15 (Moderate LUTS) Confidence, level - past 6 months High Penetration - past 6 months Almost always or always Penetration, maintain - past 6 months Almost always or always Erection, maintain - past 6 months Not difficult Sexual satisfaction - past 6 months Almost always or always Sexual Health in Men (range: 1 - 21) 24 Patient concerns for today's visit: General:Related how he went to [facility] for CT scan and they did not use contrast so had to cancel his appt and reschedule. He gets followed at [facility] with Oncology for f/u post tx for follicular lymphoma so he and will call [facility] to get appt for CT and onc f/u set. Used to have Dr Castañeda and Julia Kennedy. I gave them name of Dr Angelica Meehan who is there now. Fatigue:He does have fatigue but as his pointed out, he has had repeated health issues which keep setting him back. Wt and appetite trying to add more wt. In the 130s at home this week Respiratory:no infectious sx, no chronic cough, no viral cold sx, wheezing . He does have an occaiss smokers cough. GI:appetite less than usual. says he does get hungry and will eat a whole plate of food. :no catheter now and able to void. Discussed aKm Sexual health:endorses more function than he may possibly have. States wouldn't take those meds that turn you into a woman. by which he means ADT/ lupron. Muscle skeletal: No specific bone pain. Bone health: taking Vit D/ Calcium Neuro:had stroke in 2016 and then seizure in 2019, put on anti seizure medication then in January 2021fell and hit head on pavement. 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 Follows with [facility] no longer on ASA Mood: Usually likes gardening. Motivation has been low. Memory is a bit of a problem. Exercise: Physical therapy at home. Smoking:currently smoking 1ppd. 50 pack year hx Alcohol:Off ETOH for last year at least , had stroke 2016 and stopped drinking Support/ social relationships: is amazing and he is very grateful to her. She does try to remind him of things like moving and exercise he should do and he can get frustrated. Advanced directives not discussed Financial/transportation concerns:not at this time Performance Status: KPS Score ECOG Grade Definition 90-100 0 Fully active, able to carry on all pre-disease performance without restriction 70-80 1 Restricted in physically strenuous activity but ambulatory and able to carry out work of a light or sedentary nature, e.g., light house work, office work x 50-60 2 Ambulatory and capable of all selfcare but unable to carry out any work activities; up and about more than 50% of waking hours 30-40 3 Capable of only limited selfcare; confined to bed or chair more than 50% of waking hours 10-20 4 Completely disabled; cannot carry on any selfcare; totally confined to bed or chair Physical Examination: There is no height or weight on file to calculate BMI. There were no vitals taken for this visit. Constitutional: seen with , physically no distress, gets teary talking about his health challenges. HENT: normocephalic, sclera and conjunctiva. anicteric, neck supple, no adenopathy cervical, axillary or clavicular. None in groin either. Cardiovascular: Rate and Rhythm: Normal rate and regular rhythm. Heart sounds: Normal heart sounds. No murmur Pulmonary: Effort: Pulmonary effort is normal. Breath sounds: Normal breath sounds. No wheezing or rales. Abdomen: Soft, flat, no HSM, no masses, non-tender, active bowel sounds. (He has stool q 4 days he says.) Genitourinary: Rectum: deferred No inguinal adenopathy Musculoskeletal: Normal range of motion. General: No swelling or deformity. No spinal percussion tenderness No CVA tenderness Comments: Ambulates without assistance Skin: General: Skin is warm and dry. Neurological: General: No changes, memory is issue for him. Mental Status: alert and oriented to person, place, and time. Gait: Gait normal. Slow and has balance. Psychiatric: Mood and Affect: Mood normal. Behavior: Behavior normal. Thought Content: Thought content normal. Judgment: Judgment normal. New Labs Reviewed this visit: Date PSA Test Notes 10/15/21 0.30 252 04/17/21 0.64 10/24/2020 1.4 309 07/16/2021 3.1 399 Pretreatment PSA 12.9 ? 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 Compl xrt 04/26/20. PSA continues to trend downward. 0.30today in setting low normal testosterone. Still has fatigue but has had follicular lymphoma, brain aneurysm and cranial bleed, urosepsis and multiple other [facility] managed health issues that reflects keep setting him back. His motivation is low. Had urosepsis in Jun 2021 and in-pt tx at [facility]. Cath removed and he is able to void on his own now. Still some leakage. We reviewed Kegel exercises with patient and his . We will monitor at thetime of his next visit. Hydration with water was encouraged given hx UTI .Walking/exercise and prunes encouraged w/ hydration for his constipation. He does use pericolace and lactobaccillus. See questionnaire for LUTS. There is hesitancy with urination but no pain, no hematuria. R/T brain aneurysm and cranial bleed He was treated for this in [place]. He has a neurologist locally at [facility]. No new focal deficits but memory is an issue. His next prostate cancer followup will be in six months with PSA and testosterone prior to visit. ?? Mr and Mrs. Eduardo had the opportunity to ask questions and I answered to best of my knowledge. He agreed to call radiation oncology in between visits with questions and concerns. ?? Medical Decision Making/Recommendations/Plan: # prostate cancer: reviewed PSA results . No concerning reported symptoms or physical examination findings today # effects of EBRT: Acute: 1. LUTS (lower urinary tract symptoms) 2. Bowel dysfunction 3. Sexual health/Erectile Dysfunction 4. Fatigue 5. Mood changes Late: We reviewed potential late effects of radiation that require medical evaluation including : 1. Changes in urinary flow/difficulty passing urine (scarring from radiation) 2. Blood in urine (may be infection, inflammation bladder wall (cystitis), formation of telangiectasia (small, thin blood vessels that are dilated or broken, near the surface of the bladder and may bleed) or bladder/genitourinary cancer 3. Blood in bowel movements (stools)- maybe from hemorrhoids, telangiectasia from radiation, colorectal cancer Symptoms that you should bring to the attention of your provider: Difficulty or changes in your urine flow Blood in your urine or stool # ADT:None # resources provided:none at this time # referrals done: None at this time # follow up: Per NCCN guidelines, PSA and history/physical every 6-12 months X 5 years, then annually. Annual ERIKA (unless PSA undetectable or prostatectomy). PSA may be checked more frequently depending on risk level or other patient specific factors. Next visit:6 months Labs: PSA, testosterone, CBC, CMP Narcisa Eduardo had the opportunity to ask questions and I answered them to the best of my knowledge. Narcisa Eduardo agreed to contact radiation oncology in between visits if he has any questions/concernsor new symptoms in regards to the radiation therapy/prostate cancer Jen Eugene MSN, CASING COOKER, VEHICLE SERVICE ATTENDANT-C Nurse Practitioner Radiation Oncology documented in this encounter Plan of Treatment Upcoming Encounters Date Type Department Care Team (Late st Contact Info) Description 11/09/2024 10:30 AM EDT Office Visit Radiation Oncology at [address] [phone] Taya De La Vega PA [facility] [place] [address] 11/13/2024 2:00 PM EDT Office Visit Hematology/Oncology at [address] [phone] Kirt Kennedy MD [facility] HEMATOLOGY [place] [address] Alem Lazaro APRN [address] [place] [address] DR HEMATOLOGY [place] [address] documented as of this encounter Visit Diagnoses Diagnosis Malignant neoplasm of prostate- Primary documented in this encounter Care Teams Data Collection Associate Relationship Specialty Start Date End Date Alfredo Montoya DO [address] [place] [id number] PCP - General Internal Medicine 12/04/19 04/27/23 documented as of this encounter
--- OUTSIDE RECORDS SUMMARY | 2024-05-24 19:28 | XMS_ITS | Encounter Summary ---
Author Organization [facility] Address [facility] [place] [address] Care Team Providers Care Loan Counselor Name Role Phone Amanda Pino Primary Care Provider [phone] Reason for Referral * Diagnostic Test (Routine) - Closed Specialty Diagnoses / Procedures Referred By Contac t Referred To Contact Radiology Diagnoses Nephrolithiasis Procedures CT Abdomen & Pelvis wo Contrast Adan Navarrete Jr., MD [facility] [place] [address] [address] [facility] [place] [address] Referral ID Status Reason Start Date Expiration Date V isits Requested Visits Authorized [id number] Closed Specialty Service Requested 09/06/2023 03/06/2025 1 1 Reason for Visit * Reason Comments Nephrolithiasis Encounter Details Date Type Department Care Team (Late st Contact Info) Description 09/06/2023 10:30 AM EST [place] [address] Adan Navarrete Jr., MD [facility] [place] [address] Nephrolithiasis Social History Tobacco Use Types Packs/Day [...] Sign Reading Time Taken Comments Blood Pressure 114/66 09/06/2023 10:35 AM EST Pulse 65 09/06/2023 10:35 AM EST Temperature - - Respiratory Rate - - Oxygen Saturation - - Inhaled Oxygen Concentration - - Weight - - Height - - Body Mass Index - - documented in this encounter Progress Notes * Adan Navarrete Jr., MD - 09/06/2023 10:30 AM EST Images from the original note were not included. HPI: Narcisa Eduardo is a 77 y.o. man who returns for follow up regarding urolithiasis in setting of ureteral stricture. He has a past medical history notable for seizure disorder, hypertension, depression, [place] 4+3 prostate cancer status post radiation persistent LUTS, increased postvoid residual and microscopic hematuria. By report he has bilateral nonobstructive nephrolithiasis. By report greater than 2 and half centimeters branched stone burden on the right kidney and greater than 1 and half centimeters in the left kidney. He underwent left ureteroscopy and bilateral stent placement inApril 2022 with a postoperative seizure. He was cleared by neurology for second stage ureteroscopy.He then underwent second and third stage ureteroscopies in December 2022. Postop renal ultrasound revealed persistent bilateral nephrolithiasis. In February 2023 he again attempted bilateral ureteroscopy at the [place], but were unable to access either ureteral orifice ease uretereroscopically and placed bilateral 8 [place] stents. By report he was scheduled to undergo left ureteroscopy laser lithotripsy and right stent removal on 04/29/2023. These notes have not been forwarded, but he states he was told he would require PCNL to remove the stones andthat it cannot be performed at the [facility]. Despite multiple requests from the [place], CT images were not forwarded to us in time for planned surgery. He ultimately requested to proceed with attempted bilateral ureteroscopy on 08/05/23, notable for bilaterally narrowed ureters. Distal ureteroscopy of right ureter showed no abnormality of distal ureter other than narrowed lumen, but unable to pass semirigid or flexible scope beyond distal ureter. Stent replaced, too tight for 8 fr stent, thus 7fr placed. Left ureteroscopy revealed innumerablesmall renal stones as well as several larger fragments. Stones fragmented and then fragments extracted with only residual fragments < or up to 1 mm. PMHx: Postoperative delirium, depression, bradycardia, subdural hemorrhage, abdominal aortic aneurysm, thoracic aortic aneurysm, non-Hodgkin lymphoma, prostate cancer, tobacco dependence, alcohol dependence, hypertension PSHx: Multiple bilateral ureteroscopy, SocHx: daily tobacco; no longer drinks EtOH Physical Exam Vitals reviewed. Constitutional: General: He is not in acute distress. Appearance: He is not toxic-appearing. Cardiovascular: Rate and Rhythm: Normal rate and regular rhythm. Pulmonary: Effort: Pulmonary effort is normal. No respiratory distress. Abdominal: General: There is no distension. Palpations: Abdomen is soft. Tenderness: There is no abdominal tenderness. There is no guarding or rebound. Genitourinary: Comments: No CVA tenderness to percussion bilaterally Imaging Studies: [place] has not yet forwarded the most recent CAT scan images for review. Due to the long delay since his last imaging, we elected to proceed with repeat CT. I ordered this subsequently reviewed. This confirms greater than 2. 7 cm branched right lower pole renal stone. Of note is proximity of colon inferior to the lower pole of the kidney. Many persistent nonobstructing left renal stones also identified. Bilateral stents are in place without hydronephrosis. Of note, an additional lateral calcification identified on paving bed maker fluoroscopy appears to be within the liver on CT. Impression/Plan: Right lower pole staghorn stone and residual left renal stones s/p failed URS at outside facility 1)Branched right renal stone >2.7cm. We discussed management options of watchful waiting, open or laparoscopic surgery, PCNL, Ureteroscopy, and SWL and the relative risks, benefits, limitations, and anticipated single procedure stone free rates for each. We discussed proximity: To lower pole potential risk for bowel injury and possible need for additional surgery or colostomy. From review of films a more posterior approach utilizing a bull's-eye technique as opposed to a triangulation of themedial lower pole for the last safest access to the lower pole of the kidney. We also discussed an additional attempted ureteroscopy in order to avoid the risk of injury to surrounding structures. Matthewotes prior failed attempts at ureteroscopy due to distal right ureteral narrowing. As such, he declines right ureteroscopy and wishes to proceed with right PCNL. With regard to right percutaneous nephrolithotomy, we specifically discussed risks of bleeding, infection, injury to or loss of kidney, and injury to surrounding structures including lung, pleura, bowel, blood vessels, nerves, and solid organs, as well as risks of anesthesia including heart attack,stroke, DVT, pulmonary embolus, or . We discussed that there may be a need for subsequent staged procedures. He would like to attempt definitive removal of the right renal stones, understands the risks and benefits of the options, and has requested that we proceed with right PCNL, and possibleleft ureteral stent exchange versus left ureteroscopy. Urine will be sent for culture to aid in anti biotic selection. I have asked him to call with any additional questions. We discussed that PCNL cannot be performed in someone actively anticoagulated or taking antiplatelet agents. He has been instructed to not take any aspirin, aspirin containing compounds, plavix, or other antiplatelet or anticoagulant agents for the 10 days preoperatively. 2) persistent left renal stones. We reviewed management options, including watchful waiting, shock wave lithotripsy, ureteroscopy, and percutaneous nephrolithotomy, pending review of CT. We additionally discussed the relative risks, benefits, stone-free success rate, and limitations of each. For now he declines surgical intervention and wishes to first address larger right renal stones, with planned LEFT URETERAL STENT EXCHANGE if needed at time of right PCNL. He has been instructed to call or return in the interval if new signs or symptoms of stone passage/renal colic should develop. ADDENDUM CT report received, reviewed. Additionally, unexpected new finding of <6mm right lower lobe subpleural nodule noted. I called Narcisa Eduardo and his and iformed them. They agree to follow up with primary care provider and [facility] to discuss further evaluation and follow up. IMPRESSION 1. Bilateral double-J ureteral stents. Bilateral hyperdense material in the renal calyces, are most suggestive with fragmented stones status post lithotripsy. No hydronephrosis. 2. Previously stable bilobed infrarenal abdominal and distal left common iliac artery aneurysms within limitation of without contrast 3. Unexpected finding: Sub-6 mm right lower lobe subpleural nodule is indeterminate. Given patient's clinical history, attention on follow-up is recommended. 4. No suspicious osseous lesion. 5. Refer to above for other stable ancillary findings. I have personally reviewed the image(s) and the resident's interpretation and agree with the findings, Toby Smith MD at 09/06/2023 2:53 PM documented in this encounter Plan of Treatment Upcoming Encounters Date Type Department Care Team (Late st Contact Info) Description 11/09/2024 10:30 AM EDT Office Visit Radiation Oncology at [address] [phone] Taya De La Vega PA [facility] [place] [address] 11/13/2024 2:00 PM EDT Office Visit Hematology/Oncology at [address] [phone] Kirt Kennedy MD [facility] [place] [address] Alem Lazaro APRN [address] [place] [address] DR HEMATOLOGY AND ONCOLOGY [place], [place] [phone] documented as of this encounter Procedures Procedure Name Priority Date/Time Associated Diagnosis Comments URINE CULTURE Routine 09/06/2023 1:20 PM EST Nephrolithiasis documented in this encounter Results * (ABNORMAL) Urine culture Clean Catch Urine (09/06/2023 1:20 PM EST) Urine Culture 50,000-99,000 cfu/ml mixed mucosal stefania 10,000-49,000 cfu/ml Gram Negative organisms Note: Culture shows multiple bacterial species suggesting mucosal contamination. (A) [facility] Clean Catch Urine 09/06/2023 1:20 PM EST 09/06/2023 3:16 PM EST Narrative Resulting Agency Comment Spec In Lab Adan Navarrete Jr., MD MICROBIOLOGY - GEN ERAL ORDERABLES [facility] [address] * (ABNORMAL) CT Abdomen & Pelvis wo [...] who have questions please contact the health professional healthcare representative that requested your imaging first. ? Electronically signed by: Toby Smith MD, [facility] ([phone]), at 09/06/2023 2:53 PM Narrative 09/06/2023 2:53 [...] Visit Diagnoses Diagnosis Nephrolithiasis Calculus of kidney Nephrolithiasis Calculus of kidney documented in this encounter Care Teams Loan Counselor Relationship Specialty Start Date End Date Amanda Pino PA [address] [place] [address] PCP - General Internal Medicine 04/28/23 documented as of this encounter
--- OUTSIDE RECORDS SUMMARY | 2024-05-24 19:28 | XMS_ITS | Encounter Summary ---
Author Organization [facility] [place] [address] Care Team Providers Care Sales And Marketing Assistant Name Role Phone Amanda Pino Primary Care Provider [phone] Reason for Visit * Auth/Cert (Routine) Specialty Diagnoses / Procedures Referred By Rogers t Referred To Contact Diagnoses Calculus of kidney >2.5cm right lower pole renal stone Procedures PRO PERQ NL/PL LITHOTRIPSY COMPLEX >2 CM RESIZER OPERATOR LOCATIONS PRO PLMT NEPHROSTOMY CATH PRQ NEW ACCESS RS&I PRO CYSTO W URETEROSCOPY &/OR PYELOSCOPY, DX PRO CYSTOSCOPY, REMV CALCULUS, SIMPLE PRG US ABDOMEN REAL TIME, LIMITED NEPHROLITHOTOMY, (PCNL) PERCUTANEOUS, COMPLEX (EG STONE > 2CM) (WRVU 20.91) NEPHROSTOMY CATHETER, PERC, INC DX NEPHROSTOGRAM/URETEROGRAM, IMG GUIDANCE (WRVU 4) CYSTOURETEROSCOPY, DIAGNOSTIC (WRVU 5.75) CYSTO, REMOVAL OF STENT, FOREIGN BODY OR CALCULUS, SIMPLE (WRVU 2.81) MODIFIER HOLMIUM LASER ULTRASOUND, INTRAOP, ABDOMINAL, SINGLE ORGAN (WRVU 0.59) Adan Navarrete Jr., MD [facility] [place] [address] [facility] Referral ID Status Reason Start Date Expiration Date Visits Re quested Visits Authorized [id number] 1 1 Encounter Details Date Type Department Care Team (Late st Contact Info) Description 08/05/2023 11:58 AM EST Anesthesia Event [place] [phone] Terence Ferreira MD [facility] [place] [address] Sandra Chen CRNA [facility] [address] Anesthesia Record Procedure Summary Procedure Name Responsible Anesthesiologist Anesthesia Start Time Anesthesia Stop Time MODIFIER HOLMIUM LASER Terence Ferreira MD 08/05/23 1158 08/05/23 1547 Events Date Time Event Comment 08/05/2023 1131 1158 AN Verify 1158 Start 1201 An Start Data 1208 An Induction 1209 An Intubation 1212 Anesthesia Ready 1534 Extubation/LMA Out 1537 an stop data 1546 Recovery or ICU Handoff Meche ent care was transferred to the destination unit staff after review of the patient's medical history, current anesthetic/surgical status and plan, according to the Provider Handoff Checklist. 1547 Stop Meds Name Total IV Lidocaine 20 mg Propofol 170 mg Dexamethasone 4 mg ceFAZolin (Ancef) 2 g vial a ttach to sodium chloride 0.9% 100 mL Mini-Bag Plus 2 g fluconazole (Diflucan) 200 mg in sodium chloride 0.9% 100 mL infusion 200 mg propofol INF 623.29 mg lactated ringers infusion 700 mL * Agents Name O2 * Blood No blood administrations on file. Lines, Drains, and Airways Type Details Placement Removal Incision 08/05/23; penis; oth er (see comments) (LDA for documentation purposes - camera insertion) 08/05/23 0000 by Ashwini Chaudhary RN Urethral Catheter 02/18/21; 0900; Phys ician order; Acute urinary retention or obstruction; indwelling single lumen catheter; present on admission to this facility; LDA not present upon assessment; 08/05/23; 1244 02/18/21 0900 by Michael Mansfield RN 08/05/23 1244 by Ashwini Chaudhary RN PIV 08/05/23; 1043; [id number] catheter system; 20 gauge; cephalic vein (lateral side of arm), right; Anatomical Landmarks; US Not Used; MAYA Weller; distraction, tolerated well, appears comfortable; no longer indicated; 08/05/23; 1648 08/05/23 1043 by Judy Contreras RN 08/05/23 1648 by Sharon Trevino RN Supraglottic Mask Ventilation: Ea sy (1); LMA Type: iGel; LMA Size: 4; Inserted by: aris; Removal Date: 08/05/23; Removal Time: 153308/05/23 1214 by Sandra Chen CRNA 08/05/23 1534 by Sandra Chen CRNA documented in this encounter Social History Tobacco [...] OR Notes * Anesthesia Postprocedure Evaluation - Terence Ferreira MD - 08/05/2023 4:00 PM EST Department of Anesthesiology Post-procedure Note Patient: Narcisa Eduardo Procedure Summary Date: 08/05/23 Room / Location: [address] MAIN OR Anesthesia Start: 1158 Anesthesia Stop: 1547 Procedures: MODIFIER HOLMIUM LASER CYSTOURETEROSCOPY,DIAGNOSTIC,W/ LITHOTRIPSY INC. INSERTION OF INDWELLING URETERAL STENT (WRVU 8) (Left: Ureter) CYSTOURETEROSCOPY, DIAGNOSTIC (WRVU 5.75) (Right: Ureter) CYSTO, STENT PLACEMENT (WRVU 2.82) (Right: Ureter) Diagnosis: (>2.5cm right lower pole renal stone) Surgeons: Adan Navarrete Jr., MD Responsible Provider: Terence Ferreira MD Anesthesia Type: general ASA Status: 3 All Anesthesia Providers: Anesthesiologist: Terence Ferreira MD CLINICAL EDUCATION COORDINATOR: Sandra Chen CRNA Vitals Value Taken Time BP 125/76 08/05/23 1545 Temp 36.7 ??C (98.1 ??F) 08/05/23 1541 Pulse Resp 16 08/05/23 1545 SpO2 100 % 08/05/23 1600 Pain Level 0 08/05/23 1545 Vitals shown include unfiled device data. Patient Location: PACU/[facility] Level of Consciousness: Conscious but Sleepy Pain Management: Pain Being Addressed PONV: None Cardiovascular Status: At Baseline Respiratory Status: At Baseline Postoperative Fluid Status: Intravascular EUvolemia Possible Anesthetic Complications: NONE apparent at time of evaluation Final Primary Anesthesia Type: General (The anesthetic type performed was the same as planned.) Comments: * Anesthesia Preprocedure Evaluation - Terence Ferreira MD - 08/05/2023 11:30 AM EST Pre-Anesthesia Evaluation for: Narcisa Eduardo a 77 y.o. male. Procedure(s): NEPHROLITHOTOMY, (PCNL) PERCUTANEOUS, COMPLEX (EG STONE > 2CM) (WRVU 20.91) NEPHROSTOMY CATHETER, PERC, INC DX NEPHROSTOGRAM/URETEROGRAM, IMG GUIDANCE (WRVU 4) CYSTOURETEROSCOPY, DIAGNOSTIC (WRVU 5.75) CYSTO, REMOVAL OF STENT, FOREIGN BODY OR CALCULUS, SIMPLE (WRVU 2.81) MODIFIER HOLMIUM LASER ULTRASOUND, INTRAOP, ABDOMINAL, SINGLE ORGAN (WRVU 0.59) Patient Active Problem List Diagnosis Date Noted [...] ??? COLONOSCOPY 2011 date is approximate. at [facility] Dr Ko ??? PROSTATE BIOPSY 11/23/2019 Social History Tobacco [...] Physical Exam: Preprocedure Vitals Current as of 08/05/23 1130 BP: 136/75 Pulse: 49 Resp: 17 SpO2: 97 Temp: 36.3 ??C (97.3 ??F) Height: 177.8 cm (5' 10) (08/05/23) Weight: 55.9 kg (123 lb 4.8 oz) (08/05/23) BMI: 17.69 IBW: 73 kg (160 lb 15 oz) Last edited 08/05/23 1033 by Airway Assessment: Mallampati: II TM distance: >3 FB Neck ROM: full Cardiovascular Assessment: Rhythm: regular Rate: normal Pulmonary Assessment: breath sounds clear to auscultation Dental Assessment: Comment: Poor dentition and missing several teeth Misc Assessment: Last Filed Perioperative Cognitive Screening None Anesthesia Plan: ASA 3 general, with a(n) intravenous induction Patient is a 77-year-old male who is scheduled for a nephrolithotomy percutaneous removal of stone.He has a history of hypertension As well as aneurysm in the past. He is n.p.o. since yesterday took his meds this morning denies any recent URI. Consent was obtainedrisk explained. Region - Other Informed Consent: Anesthetic plan and risks discussed with patient. Plan discussed with CLINICAL EDUCATION COORDINATOR and attending. Anesthesia Screening documented in this encounter Plan of Treatment Upcoming Encounters Date Type Department Care Team (Late st Contact Info) Description 11/09/2024 10:30 AM EDT Office Visit Radiation Oncology at [address] [phone] Taya De La Vega PA [facility] [place] [address] 11/13/2024 2:00 PM EDT Office Visit Hematology/Oncology at [address] [phone] Kirt Kennedy MD [facility] [place] [address] Alem Lazaro, [address] [place] [address] documented as of this encounter Visit Diagnoses Not on filedocumented in this encounter Administered Medications Inactive Administered Medications - up to 3 most recent administrations Medication Order MAR Action Action Date Dose Rate Site ceFAZolin (Ancef) 2 g vial attach to sodium chloride 0.9% 100 mL Mini-Bag Plus 2 g, Intravenous, LEARNING CENTER COORDINATOR TO O.R., 1 dose, On Brisa 08/05/23 at 1045, Administer over 30 Minutes, Day of Surgery (Day of Procedure), Indication for (Active or Suspected): Prophylaxis New Bag 08/05/2023 12:11 PM EST 2 g dexAMETHasone (Decadron) injection Intravenous, PRN, Starting on Brisa 08/05/23 at 1227, Until Brisa 08/05/23 at 1547, Anesthesia Intra-op, Routine Given 08/05/2023 12:27 PM EST 4 mg fluconazole (Diflucan) 200 mg in sodium chloride 0.9% 100 mL infusion 200 mg, Intravenous, LEARNING CENTER COORDINATOR TO O.R., 1 dose, On Brisa 08/05/23 at 1145, Administer over 60 Minutes, Indication for (Active or Suspected): Prophylaxis, Restricted Antibiotic: Please indicate the most appropriate choice: Pre-approved indication (state the indication in comments field) Given 08/05/2023 12:26 PM EST 200 mg lactated ringers infusion 1,000 mL, at 100 mL/hr, Intravenous, CONTINUOUS, Starting on Brisa 08/05/23 at 1145, Until Brisa 08/05/23 at 1655, Day of Surgery (Day of Procedure) New Bag 08/05/2023 11:49 AM EST lidocaine (pf) (Xylocaine) (20 mg/mL) 2% injection syringe Intravenous, PRN, Starting on Brisa 08/05/23 at 1208, Until Brisa 08/05/23 at 1547, Anesthesia Intra-op, Routine Given 08/05/2023 12:08 PM EST 20 mg propofoL (Diprivan) (10 mg/mL) infusion Intravenous, CONTINUOUS PRN, Starting on Brisa 08/05/23 at 1208, Until Brisa 08/05/23 at 1547, Anesthesia Intra-op, Routine Rate/Dose Change 08/05/2023 1:29 PM EST 50 mcg/kg/min 16.77 mL/hr Rate/Dose Change 08/05/2023 12:51 PM EST 75 mcg/kg/min 25. 155 mL/hr Rate/Dose Change 08/05/2023 12:10 PM EST 50 mcg/kg/min 16. 77 mL/hr propofoL (Diprivan) 10 mg/mL bolus injection (Anesthesia) Intravenous, PRN, Starting on Brisa 08/05/23 at 1208, Until Brisa 08/05/23 at 1547, Anesthesia Intra-op Given 08/05/2023 12:52 PM EST 20 mg Given 08/05/2023 12:08 PM EST 150 mg documented in this encounter Care Teams Sales And Marketing Assistant Relationship Specialty Start Date End Date Amanda Pino PA [address] [place] [address] PCP - General Internal Medicine 04/28/23 documented as of this encounter
--- OUTSIDE RECORDS SUMMARY | 2024-05-24 19:28 | XMS_ITS | Encounter Summary ---
Author Organization [facility] Address [facility] [place] [address] Care Team Providers Care Director Of Business Development Name Role Phone Alfredo Montoya DO Primary Care Provider [phone] Encounter Details Date Type Department Care Team (Late st Contact Info) Description 11/03/2021 2:30 PM EDT Office Visit Hematology/Oncology at [address] [phone] Kirt Kennedy MD [facility] DR HEMATOLOGY [place] [address] Martha Card, RN Malignant neoplasm of prostate; Follicular lymphoma, unspecified grade, unspecified body region [...] Sign Reading Time Taken Comments Blood Pressure 149/73 11/03/2021 2:30 PM EDT Pulse 61 11/03/2021 2:30 PM EDT Temperature 36.4 ??C (97.5 ??F) 11/03/2021 2:30 PM ED T Respiratory Rate 18 11/03/2021 2:30 PM EDT Oxygen Saturation 100% 11/03/2021 2:30 PM EDT Inhaled Oxygen Concentration - - Weight 64.4 kg (142 lb) 11/03/2021 2:30 PM EDT Height 177.8 cm (5' 10) 11/03/2021 2:30 PM EDT Body Mass Index 20.37 11/03/2021 2:30 PM EDT documented in this encounter Progress Notes * Kirt Kennedy MD - 11/03/2021 2:30 PM EDT Images from the original note were [place] [address] [phone] Narcisa Eduardo is being seen for the evaluation of follicular lymphoma. Assessment & Plan: Narcisa Eduardo is a 76 y.o. male patient with a PMH of an abdominal aortic aneurysm, thoracic aortic aneurysm, hypertension, prior alcohol abuse, tobacco abuse, a stroke in early 2019 and follicular lymphoma who completed EBRT for localized prostate cancer 04/2020 who wishes to followup here in [facility] for his lymphoma rather than [facility] given the proximity to his home. He was last treated for his follicular lymphoma back in 2015 as detailed below. We discussed the fact that it is unlikely that he is cured but that he does appear to be in remission. His recent labs are reviewed and unremarkable though they are relatively remote. His most recent imaging from November of last year does not indicate any adenopathy at this time. Clinicallyhe seems to be doing well. We discussed signs and symptoms to be aware of that might indicate recurrence or progression of his follicular lymphoma. Discussed that should it come back there are treatment options that would still beavailable he can consider. Discussed that I would follow him typically with labs and annual clinic visits. Would not pursue imaging at this time unless there was a clinical change. Discussed that [facility] his [facility] to certain extent which is not ideal. He reiterated that he'd prefer to continue follow with me for now. Plan: - Labs CBC/CMP locally in the next 2 weeks - If those are ok then would plan to see him with labs in a year Kirt Kennedy MD, MS 11/03/2021 Thoracic Oncology [facility] CC: Alfredo Montoya, DO Jen Eugene DIRECTOR OF TAX SERVICES HPI/Interval History/Subjective: Accompanied by his . Has some urinary hesitancy and frequency. Frequent nocturia. No weight loss though has had difficulty gaining weight. Was working with nutrition at the [facility] No fevers or infections. No night sweats. He reports not drinking. Smoking 1 ppd. Not interested in quitting. No adenopathy that he has noted. 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 10/24 ppd. X30-40 years Alcohol use: Stopped drinking in 09/2019 after a stroke when he was placed on Plavix Drug use: None Loves gardening but can't do it any more. service: [employer]. [place] Era. Had Agent [place] Exposure. 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 Treated [facility] by Dr. Martha Castañeda - PET-CT 11/26/15 [...] showed no evidence of recurrence - CT 11/1/17 showed no evidence of recurrence - CT 12/16/17 showed no evidence of recurrence # Prostate Cancer Stage IIC (cT1c, cN0, cM0, PSA: 12.9, Grade Group: 3) Treated with EBRT (he opted to not receive ADT) at [facility] with Dr. Evans 02/26-04/26/20 97.2 Gy in 44 fractions PMH: 1. AAA - Abdominal aortic aneurysm 2. Thoracic aortic aneurysm without rupture 3. Follicular non-Hodgkin lymphoma, small cleaved cell 4. Tobacco dependence 5. Alcohol dependence 6. Hypertension 7. Family history of prostate cancer 8. Family history of malignant neoplasm of breast 9. Personal History of Exposure to Agent [place] No flowsheet data found. Patient Active Problem List Diagnosis Date Noted ??? Severe protein-calorie malnutrition 02/25/2021 ??? Trauma 02/18/2021 ??? Brain aneurysm 09/09/2020 ??? Intracranial bleed 09/02/2020 ??? Malignant neoplasm of prostate 01/05/2020 ??? Follicular lymphoma 04/03/2015 Allergies Allergen Reactions ??? Contrast [Iodine And Iodide Containing Products] Hives ??? Depakote [Divalproex] Other (See Comments) Thrombocytopenia and spontaneous bleeding Medications 11/03/21 1436 Medication Sig Taking? mirtazapine (Remeron) 15 mg Tablet TAKE ONE-HALF TABLET BY MOUTH AT BEDTIME FOR DEPRESSION/MOOD Yes prazosin (Minipress) 1 mg Capsule TAKE ONE CAPSULE BY MOUTH AT BEDTIME Yes cholecalciferol, Vitamin D3, (Vitamin D3) 1,000 unit Tablet Take by mouth. Yes Lactobacillus acidophilus (PROBIOTIC ORAL) TAKE ONE TABLET BY MOUTH EVERY DAY Yes lacosamide (Vimpat) 200 mg Tablet Take 1 tablet by mouth 2 times daily. Yes senna-docusate (Pericolace) 8.6-50 mg Tablet Take 1 tablet by mouth 2 times daily. Patient taking differently: Take 1 tablet by mouth as needed. Yes tamsulosin (Flomax) 0.4 mg Capsule TAKE 1 CAPSULE BY MOUTH EVERY DAY 30 MINUTES AFTER THE SAME MEALTIME EACH DAY FOR PROSTATE/URINARY SYMPTOMS. Yes multivit with minerals/lutein (MULTIVITAMIN 50 PLUS ORAL) Take by mouth. Yes aspirin EC 81 mg Tablet, Delayed Release (E.C.) TAKE ONE TABLET BY MOUTH EVERY DAY TO PREVENT STROKE/HEART ATTACK OR FOR PAIN/SWELLING/INFLAMMATION Yes folic acid (Folvite) 1 mg Tablet TAKE ONE TABLET BY MOUTH EVERY DAY VITAMIN/NUTRITION SUPPLEMENT Yes potassium chloride ER (K-Dur/Klor-Con) 10 mEq Tablet Sustained Release TAKE ONE TABLET BY MOUTH EVERY DAY TO SUPPLEMENT POTASSIUM Yes atorvastatin (Lipitor) 80 mg Tablet Take 80 mg by mouth daily. Yes I reviewed the problem list, allergies, medications, past medical history, social history and family history within the EPIC encounter. Pertinent details are noted above. Physical Exam: Wt Readings from Last 3 Encounters: 11/03/21 64.4 kg (142 lb) 10/23/21 63 kg (139 lb) 05/01/21 61.2 kg (135 lb) Temp Readings from Last 3 Encounters: 11/03/21 36.4 ??C (97.5 ??F) (Temporal) 10/23/21 36.7 ??C (98.1 ??F) (Temporal) 04/24/21 36.3 ??C (97.3 ??F) (Temporal) BP Readings from Last 3 Encounters: 11/03/21 149/73 10/23/21 131/64 05/01/21 113/60 Pulse Readings from Last 3 Encounters: 11/03/21 61 10/23/21 71 05/01/21 75 Body surface area is 1.78 meters squared. Wt Readings from Last 3 Encounters: 11/03/21 64.4 kg (142 lb) 10/23/21 63 kg (139 lb) 05/01/21 61.2 kg (135 lb) KPS Score ECOG Grade Definition 90-100 0 [...] to bed or chair Physical Exam BP 149/73 Pulse 61 Temp 36.4 ??C (97.5 ??F) (Temporal) Resp 18 Ht 177.8 cm (5' 10) Wt 64.4 kg (142 lb) SpO2 100% BMI 20.37 kg/m?? Constitutional: Oriented to person, place, and time. Appears well-developed. No distress. Mouth/Throat: Oropharynx is clear and moist. No oropharyngeal exudate. No scleral icterus. Eyes: Anicteric. Cardiovascular: Regular rate and regular rhythm. Exam reveals no friction rub. No murmur heard. Pulmonary/Chest: Normal respiratory effort. Lung clear to ascultation bilaterally. No wheezes or rales. Abdominal: +BS. [...] his medical care Review of Laboratory Data: 3 I reviewed the labs from 06/18/2020 white blood cell count normal at 6.0, hemoglobin 14.7 [id number] absolute neutrophil count 4.6 absolute lymphocyte count [...] left inguinal node 03/18/15; taken from the [facility] pathology report - Follicular lymphoma NOTE: Sections [...] grade or diffuse process is not excluded. * Kirt Kennedy MD - 11/03/2021 2:30 PM EDT Images from the original note were not included. Labs received: I called and notified his that they looked ok. documented in this encounter Plan of Treatment Upcoming Encounters Date Type Department Care Team (Late st Contact Info) Description 11/09/2024 10:30 AM EDT Office Visit Radiation Oncology at [address] [phone] Taya De La Vega PA [facility] HEMATOLOGY [place] [address] 11/13/2024 2:00 PM EDT Office Visit Hematology/Oncology at [address] [phone] Kirt Kennedy MD [facility] HEMATOLOGY [place] [address] Alem Lazaro APRN [address] [place] [address] DR HEMATOLOGY [place] [address] documented as of this encounter Visit Diagnoses Diagnosis Malignant neoplasm of prostate Follicular lymphoma, unspecified grade, unspecified body region documented in this encounter Care Teams Director Of Business Development Relationship Specialty Start Date End Date Alfredo Montoya DO [address] [place] [id number] PCP - General Internal Medicine 12/04/19 04/27/23 documented as of this encounter
--- OUTSIDE RECORDS SUMMARY | 2024-05-24 19:28 | XMS_ITS | Encounter Summary ---
Author Organization [facility] Address [facility] [place] [address] Care Team Providers Care [employer] Developer Name Role Phone Alfredo Montoya DO Primary Care Provider [phone] Encounter Details Date Type Department Care Team (Latest Contact Info) Description 11/16/2022 Travel Social History Tobacco Use Types Packs/Day [...] AM EDT Office Visit Radiation Oncology at [address] [phone] Taya De La Vega PA [facility] DR [place] [address] 11/13/2024 2:00 PM EDT Office Visit Hematology/Oncology at [address] [phone] Kirt Kennedy MD [facility] DR [place] [address] Alem Lazaro APRN [address] [place] [address] [place] [address] documented as of this encounter Visit Diagnoses Not on filedocumented in this encounter Care Teams [employer] Developer Relationship Specialty Start Date End Date Alfredo Montoya DO [address] [place] [id number] PCP - General Internal Medicine 12/04/19 04/27/23 documented as of this encounter
--- OUTSIDE RECORDS SUMMARY | 2024-05-24 19:28 | XMS_ITS | Encounter Summary ---
Author Organization [facility] Address [facility] [place] [address] Care Team Providers Care Job Training Supervisor Name Role Phone Alfredo Montoya DO Primary Care Provider [phone] Encounter Details Date Type Department Care Team (Late st Contact Info) Description 10/22/2022 1:00 PM EST Office Visit Radiation Oncology at [address] [phone] Jen Eugene APRN [facility] RADIATION [place] [address] Malignant neoplasm of prostate (Primary Dx) Social [...] Sign Reading Time Taken Comments Blood Pressure 122/67 10/22/2022 1:07 PM EST Pulse 78 10/22/2022 1:07 PM EST Temperature 36.9 ??C (98.4 ??F) 10/22/2022 1:07 PM ES T Respiratory Rate 18 10/22/2022 1:07 PM EST Oxygen Saturation 98% 10/22/2022 1:07 PM EST Inhaled Oxygen Concentration - - Weight 67.3 kg (148 lb 6.4 oz) 10/22/2022 1:07 P M EST Height - - Body Mass Index 21.29 11/03/2021 2:30 PM EDT documented in this encounter Progress Notes * Jen Eugene, ATTENDANCE SECRETARY - 10/22/2022 1:00 PM ESTSummary: 77 year old M dx Unfavorable Intermediate-Risk Prostate Cancer. Compl xrt 04/26/20 [facility] [address] Phone: RADIATION ONCOLOGY FOLLOW UP NOTE Date of visit: 10/13/2022 Patient Narcisa Eduardo 1945 PCP: Alfredo Montoya DO Urologist: Charleen Torres MD//also went to [facility] Urology Radiation oncologist: Dr Que Evans Chief Complaint: follow up/labs/for prostate cancer Time since completed RT: 04/26/20 ADT:He declined ADT. Current treatment:Surveillance HPI: Narcisa Eduardo??is a 74 y.o.??male??diagnosed with an unfavorable intermediate- risk prostate cancer. ?? Presenting Symptoms / Duration:?? ePSA; per pt he has had ERIKA in past that did not show any nodules ?? Prior consultations / recommendations: Dr Thomas - [facility] - 12/01/19 - options of , RP, RT reviewed. Patient interested in learning more about RT. Referral placed.? PSA History:?? 11/03/19 - 12.9 ?? Pathology Results / Location:?? TRUS Bx 11/23/19 ([facility]) - ?Gl 4+3 x 1 - Left [...] helpful to himin regaining stamina and function. He admits that since PT has completed he has not done much in way of exercise and may be a bit deconditioned. He is still smoking 1-1.25 ppd of cig. His is present during this visit in order to help with history, review his medications. Some meds taken off list in review today. Last November 2021 pt and describe urosepsis admission to [facility]. Since recovering he has been successful in keeping the catheter out and voids on his own. He still does wake up at [facility] to void x 2-3x and MD at [facility] took him off the prazosin (for PTSD nightmares) so he could increase the tamsulosin to two pills a day to improve urination and emptying. He relates that he has had minimal nightmares since stopping prazosin. He does not have dizziness. Narcisa says he sleeps through night and infreq needing to get up to urinate, there is some urgency sometimes. states that 1-2 x may get up in first hour of going to bed. But after that he will sleep through the [facility]. Narcisa agrees with this assessment. No hematuria, has had chronic UTIs. Does not hydrate well per . Unfortunately, he has had episodes of urosepsis and these have led to seizure activity and need for ambulance ride to local hospital. This ends up being to [facility]. They would favor going to [facility] but the ambulance must deliver himto nearest hospital. He has had c-diff in stool due to number of Abx tx for UTIs. He is encouraged to continue to use the probiotic capsules ongoing. There was discussion in urology (Charleen Torres MD) about putting in a suprapubic cath. Ultimately, he got the giraldo out and is urinating but has not been as good about hydration which may lead to not flushing out bladder and then more UTIs. With hx urosepis and seizure activity and c-diff due to the freq of abx needs, we discussed how these things can lead to life threatening situations for him. So at the very least, following good hydration and catching the UTIs early is going to be very important. R/T prostate cancer he is happy to have PSA contin downward trend. He had a brother and father who had prostate cancer. No hematuria, bowels regular, no blood in stool and no bone pain. Past Medical History: Diagnosis Date ??? AAA [...] ??? COLONOSCOPY 2011 date is approximate. at [facility] Dr Ko ??? PROSTATE BIOPSY 11/23/2019 Medications 04/23/22 1116 Medication Sig Taking? melatonin 3 mg Tablet Take by mouth. mirtazapine (Remeron) 15 mg Tablet TAKE ONE-HALF TABLET BY MOUTH AT BEDTIME FOR DEPRESSION/MOOD cholecalciferol, Vitamin D3, (Vitamin D3) 1,000 unit Tablet Take by mouth. Lactobacillus acidophilus (PROBIOTIC ORAL) TAKE ONE TABLET BY MOUTH EVERY DAY lacosamide (Vimpat) 200 mg Tablet Take 1 tablet by mouth 2 times daily. senna-docusate (Pericolace) 8.6-50 mg Tablet Take 1 tablet by mouth 2 times daily. Patient taking differently: Take 1 tablet by mouth as needed. tamsulosin (Flomax) 0.4 mg Capsule Take 0.8 [...] ??? COLONOSCOPY 2011 date is approximate. at [facility] Dr Ko ??? PROSTATE BIOPSY 11/23/2019 Family History Problem Relation Age of Onset ??? Prostate Cancer Father Social History Tobacco Use ??? Smoking status: Every Day Packs/day: 1.00 Types: Cigarettes Start date: 1963 ??? Smokeless tobacco: Never ??? Tobacco comments: rolls on cigarettes smokes less then 20 a day Vaping Use ??? Vaping Use: Never used Substance Use Topics ??? Alcohol use: Not Currently Comment: 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 ??? Drug use: Not Currently Review of Symptoms: I reviewed the IPSS/RISHABH/Epic-Cp survey results from today. 10/22/2022 12:57 PM EST - Filed by Patient Urinary dripping/leakage problem Moderate problem 5. How big a problem, if any, has each of the following been for you? Weak urine stream/incomplete bladder emptying Small problem Need to urinate frequently Very small problem 6. How big a problem, if any, has each of the following been for you? Rectal pain or urgency of bowel movements No problem Increased frequency of your bowel movements No problem Overall problems with your bowel movements Very small problem Bloody stools No problem Ability to reach orgasm Poor Quality of your erections Firm enough for intercourse Problem with sexual function or lack of it No problem 10. How big a problem, if any, has each of the following been for you? Hot flashes or breast tenderness/enlargement No problem Feeling depressed No problem Lack of energy Very small problem Urinary Incontinence Symptom Score (range: 0 - 12) 3 Urinary Irritation/Obstructive Symptom Score (range: 0 - 12) 3 Bowel Symptom Score (range: 0 - 16) 1 Vitality/Hormonal Symptom Score (range: 0 - 12) 1 Overall Prostate Cancer QOL Score (range: 0 - 60) 8 Q - Prostate Followup Survey Question 10/22/2022 ??1:01 PM EST - Filed by Patient Reason for visit Post surgical visit Incomplete emptying Less than 1 time in 5 Frequency Almost always Intermittency Almost always Urgency Less than 1 time in 5 Weak Stream Less than 1 time in 5 Straining Less than 1 time in 5 Nocturia 1 time Quality of life Unhappy Total IPSS Score (range: 0 - 35) 15 (Moderate LUTS) Confidence, level - past 6 months Very High Penetration - past 6 months Almost always or always Penetration, maintain - past 6 months Almost always or always Erection, maintain - past 6 months Not difficult Sexual satisfaction - past 6 months Almost always or always Sexual Health in Men (range: 1 - 21) 25 Patient concerns for today's visit: General: Stable and no UTIs since this last November. Does not have catheter in place now and urinating independently. Fatigue:He does have fatigue Wt and appetite: 148lbs at home. Respiratory:no infectious sx, no chronic cough, no viral cold sx, wheezing . He does have an occaiss smokers cough which I hear over phone today. Smokes 1-1.25 ppd now. Not interested in quitting. GI:appetite is okay, says when he does get hungry and will eat a whole plate of food. :no catheter now and able to void. Discussed Kegels, no hematuria, no pain or burning with urination. Hx urosepsis and repeated UTIs but not since last spring. Sexual health:endorses more function than he may possibly have. States wouldn't take those meds that turn you into a woman. by which he means ADT/ lupron. Muscle skeletal: No specific bone pain. 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 Aneurysm found. Follows with [facility] neurology no longer on ASA. Mood: Usually likes gardening. Motivation/energy has been low. Feels that his cognition and memory are not so bad at this time. Exercise: Physical therapy at home in the past. Has not had had PT for awhile and has not been exercising well. Smoking:currently smoking 1-1.25 ppd. 50 pack year hx. Not interested in quitting. Alcohol:Off ETOH for last year at least , had stroke 2015 and stopped drinking. Support/ social relationships: is amazing and he is very grateful to her. She does try to remind him of things like moving and exercise he should do and he can get frustrated. Advanced directives not discussed Financial/transportation concerns:not at this time Performance Status: KPS Score ECOG Grade Definition 90-100 0 Fully active, able to carry on all pre-disease performance without restriction x 70-80 1 Restricted in physically strenuous activity [...] confined to bed or chair Physical Examination: Body mass index is 21.29 kg/m??. BP 122/67 (Patient Position: Sitting) Pulse 78 Temp 36.9 ??C (98.4 ??F) (Temporal) Resp 18 Wt 67.3 kg (148 lb 6.4 oz) Constitutional: seen in clinic, no distress HENT: normocephalic, anicteric, neck supple, no adenopathy cervical, axillary, clavicular. Cardiovascular: Rate and Rhythm: Normal rate and regular rhythm. Heart sounds: Normal heart sounds. No murmur Pulmonary: Effort: Pulmonary effort is normal. Breath sounds: Normal breath sounds. No wheezing or rales. Genitourinary: Rectum: deferred, PSA continues downward trend. No pelvic adenopathy Musculoskeletal: Normal range of motion. General: No swelling or deformity. No spinal percussion tenderness Comments: Ambulates without assistance Skin: General: Skin is warm and dry. Neurological: General: No focal deficit present. Mental Status: alert and oriented to person, place, and time. Gait: Gait normal. Psychiatric: Mood and Affect: Mood normal. He presents as irritable, interrupting his and seeming impatient. Behavior: Behavior normal. Thought Content: Thought content normal. Judgment: Difficult to assess New Labs Reviewed this visit: Date PSA Test Notes 10/15/22 0.17 Reported by RN verbally 04/15/22 0.23 375 10/15/21 0.30 252 04/17/21 0.64 10/24/2020 1.4 309 07/16/2021 3.1 399 Pretreatment PSA 12.9 ? Assessment: Mr Narcisa Eduardo is a??77 y.o.M?dx with an unfavorable intermediate-risk prostate cancer (cT1c, Gl 4+3, PSA 12.9).?He declined ADT. Compl xrt 04/26/20. PSA continues to trend downward today in setting normal testosterone. PSA from 10/15/22 was 0.17 Still has had mild fatigue. Hx of follicular lymphoma, brain aneurysm and cranial bleed, repeated urosepsis (last spring 2021) and multiple other [place] managed health issues that reflects keep setting him back. His motivation is low and indicates he spends most of day sitting and smoking. Due to see Dr Kennedy for yearly assessment of his lymphoma. Currently no known lymph nodes, no fevers,chills, noc sweats. No wt loss, no early satiety. Had urosepsis in Jun 2021 and the last episode was in November 2021 in-pt tx at [facility]. Cath was removed and he is able to void on his own now. Still some leakage significantly and wears Depends day andnoc. . Hydration with water was encouraged given hx UTI and renal stones .Walking/exercise and prunes encouraged w/ hydration for his constipation. He does use pericolace and lactobaccillus. There ishesitancy with urination but no pain, no hematuria. R/T brain aneurysm and cranial bleed He was treated for this in [place]. He has a neurologist locally at [facility]. No new focal deficits but memory can sometimes be an issue. His next prostate cancer followup will be in six months with PSA and testosterone prior to visit. He and live near [facility] and are happy to come for f2f. ?? Mr and Mrs. Eduardo had the opportunity to ask questions and I answered to best of my knowledge. He agreed to call radiation oncology in between visits with questions and concerns. ?? Medical Decision Making/Recommendations/Plan: # prostate cancer: reviewed PSA results . No concerning reported symptoms today. # effects of EBRT: Acute: 1. LUTS [...] specific factors. Next visit:6 months Labs: PSA, testosterone Dr Naveen Kennedy had planned f/u in one year which is coming up in 2 weeks. will check on appt. This is to follow hx of follicular lymphoma and tx. Pt informed of lab orders in system for Dr Kennedy for 11/03/22 Narcisa Eduardo had the opportunity to ask questions and I answered them to the best of my knowledge. Narcisa Eduardo agreed to contact radiation oncology in between visits if he has any questions/concernsor new symptoms in regards to the radiation therapy/prostate cancer Jen Eugene MSN, ATTENDANCE SECRETARY, DATA PROCESSING EQUIPMENT REPAIRER-C Nurse Practitioner Radiation Oncology documented in this encounter Plan of Treatment Upcoming Encounters Date Type Department Care Team (Late st Contact Info) Description 11/09/2024 10:30 AM EDT Office Visit Radiation Oncology at [address] [phone] Taya De La Vega PA [facility] HEMATOLOGY AND [place] [address] 11/13/2024 2:00 PM EDT Office Visit Hematology/Oncology at [address] [phone] Kirt Kennedy MD [facility] HEMATOLOGY AND [place] [address] Alem Lazaro APRN [address] [place] [address] DR HEMATOLOGY AND ONCOLOGY [place], [place] [id number] documented as of this encounter Visit Diagnoses Diagnosis Malignant neoplasm of prostate- Primary documented in this encounter Care Teams Job Training Supervisor Relationship Specialty Start Date End Date Alfredo Montoya DO [address] [place] [id number] PCP - General Internal Medicine 12/04/19 04/27/23 documented as of this encounter
--- OUTSIDE RECORDS SUMMARY | 2024-05-24 19:28 | XMS_ITS | Encounter Summary ---
Author Organization [facility] Address [facility] [place] [address] Care Team Providers Care Bread Racker Name Role Phone Alfredo Montoya DO Primary Care Provider [phone] Encounter Details Date Type Department Care Team (Late st Contact Info) Description 09/16/2021 Orders [place] [phone] Jen Eugene APRN [facility] [place] [address] Malignant neoplasm of prostate (Primary Dx) Social [...] AM EDT Office Visit Radiation Oncology at [address] [phone] Taya De La Vega PA [facility] H[place] [address] 11/13/2024 2:00 PM EDT Office Visit Hematology/Oncology at [address] [phone] Kirt Kennedy MD [facility] DR HEMATOLOGY [place] [address] Alem Lazaro APRN [address] [place] [address] DR HEMATOLOGY AND ONCOLOGY [place], [place] [id number] documented as of this encounter Visit Diagnoses Diagnosis Malignant neoplasm of prostate- Primary documented in this encounter Care Teams Bread Racker Relationship Specialty Start Date End Date Alfredo Montoya DO [address] [place] [id number] PCP - General Internal Medicine 12/04/19 04/27/23 documented as of this encounter
--- OUTSIDE RECORDS SUMMARY | 2024-05-24 19:28 | XMS_ITS | Encounter Summary ---
Author Organization [facility] Address [facility] [place] [address] Care Team Providers Care Assembly Leader Name Role Phone Alfredo Montoya DO Primary Care Provider [phone] Encounter Details Date Type Department Care Team (Latest Contact Info) Description 10/22/2022 Travel Social History Tobacco Use Types Packs/Day [...] EDT Office Visit Radiation Oncology at [address] [phone] Taya De La Vega PA [facility] [place] [address] 11/13/2024 2:00 PM EDT Office Visit Hematology/Oncology at [address] [phone] Kirt Kennedy MD [facility] [place] [address] Alem Lazaro APRN [address] [place] [address] DR [place]AT[place]Y [place] [address] documented as of this encounter Visit Diagnoses Not on filedocumented in this encounter Care Teams Assembly Leader Relationship Specialty Start Date End Date Alfredo Montoya DO [address] [place] [id number] PCP - General Internal Medicine 12/04/19 04/27/23 documented as of this encounter
--- OUTSIDE RECORDS SUMMARY | 2024-05-24 19:28 | XMS_ITS | Encounter Summary ---
Author Organization [facility] [place] [address] Care Team Providers Care Study Hall Supervisor Name Role Phone Alfredo Montoya DO Primary Care Provider [phone] Reason for Referral * Physical Therapy (Routine) - Closed Specialty Diagnoses / Procedures Referred By Contac t Referred To Contact Physical Therapy Diagnoses Gait disorder Jasper Astudillo MD [facility] [place] [address] Referral ID Status Reason Start Date Expiration Date V isits Requested Visits Authorized [id number] Closed Evaluate and Treat Non PCP 05/01/2021 10/28/2021 12 12 Reason for Visit * Consultation (Routine) - Closed Specialty Diagnoses / Procedures Referred By Contaryan espitia Referred To Contact Neurology Diagnoses Syncope and collapse hosp ck - head trauma Marisol Hendrix P, MOHS SURGEON [address] [place] [address] [facility] [address] [place] [address] Referral ID Status Reason Start Date Expiration Date Visits Re quested Visits Authorized [id number] Closed 03/28/2021 03/28/2022 1 1 Encounter Details Date Type Department Care Team (Late st Contact Info) Description 05/01/2021 2:00 PM EDT [place] [phone] Katharine Mohamud DO [facility] [place] [address] Jasper Astudillo MD [facility] [place] [address] Gait disorder Social History Tobacco Use Types Packs/Day Years [...] Sign Reading Time Taken Comments Blood Pressure 113/60 05/01/2021 1:51 PM EDT Pulse 75 05/01/2021 1:51 PM EDT Temperature - - Respiratory Rate - - Oxygen Saturation - - Inhaled Oxygen Concentration - - Weight 61.2 kg (135 lb) 05/01/2021 1:51 PM EDT r eported Height 177.8 cm (5' 10) 05/01/2021 1:51 PM EDT reported Body Mass Index 19.37 05/01/2021 1:51 PM EDT documented in this encounter Progress Notes * Jasper Astudillo MD - 05/01/2021 2:00 PM EDT Images from the original note were not included. Admit Date (Not on file) ( Hospital Day 0 days ) Responsible Attending: No att. 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 08/26/2020 R MCA Territory Infarction + L fronto/parietal hygroma History of Presenting Illness Overall etiology of trauma is unclear, cardiac workup obtained by trauma included TTE vessel imaging. Witnessed breakthrough seizure while inpatient appeared to have obvious semiology, although cannot exclude small seizure event prior to fall. Seizures were attributed to decreased threshold either from klebsiella UTI, residual C. Diff infection, or perhaps chronic inflammation from very poor dentition noted on CT. Vimpat was increased to 200mg BID. He does follow with neurology in [place] - Dr. Villa as well as [facility] [place] - Dr.Sergi Post who believed he had a left sided stroke in 2019 with residual right sided deficits, continued him on vimpat at increased dose after admission to [facility] in December 2020 for breakthrough seizures. Semiology per Dr. Ndiaye M-R: On the morning of admission, pt had a seizure witnessed by his , eyes rolled backward, whole body stiffened and then began shaking, he was unresponsive, lasted about 1-2 minutes. We do not have a better description at this time. Interval Events 05/01/2021 Feels fatigued and unsteady. Having in home PT which is helping him to use a cane. States he feels terribly as if he has no energy all the fight taken out of me Reportedly follows with Dr. Torres his urologist for the indwelling giraldo. CT CAP during surgery revealed complex cystic lesion on the left kidney with US recommended for follow up. Eccentric thickening of the stomach also noted with consideration for direct visualization. He denies any breakthroughseizure events. ROS (+) generally feels terrible ROS (-) weight loss, fevers, chills, night sweats, headache, photophobia, rhinitis, sore throat, neck stiffness, chest pain, cough, dyspnea, abdominal pain, nausea, vomiting, diarrhea, hematemesis, hematochezia, melena, dysuria, edema. Allergies Allergen Reactions ??? Contrast [Iodine And [...] ??? COLONOSCOPY 2012 date is approximate. at [facility] Dr Ko ??? PROSTATE BIOPSY 11/23/2019 Family History Problem Relation Age of Onset ??? Prostate Cancer Father Social History Socioeconomic History ??? Marital status: Spouse name: Not on file ??? Number of children: 3 ??? Years of education: Not on file ??? Highest education level: Not on file Occupational History ??? 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 Occupation: [employer] Comment: [place] Tobacco Use ??? Smoking status: Current Every Day Smoker Packs/day: 1.00 Types: Cigarettes Start date: 1963 ??? Smokeless tobacco: Never Used ??? Tobacco comment: rolls on cigarettes smokes less then 20 a day Vaping Use ??? Vaping Use: Never used Substance and Sexual Activity ??? Alcohol use: Not Currently Comment: 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 ??? Drug use: Not Currently ??? Sexual activity: Not on file Other Topics Concern ??? Do You live alone? Not Asked ??? Tobacco in Home Not Asked Social History Narrative ??? Not on file Social Determinants of Health Financial Resource Strain: ??? Difficulty of Paying Living Expenses: Not on file Food Insecurity: ??? Worried About Running Out of Food in the Last Year: Not on file ??? Ran Out of Food in the Last Year: Not on file Transportation Needs: ??? Lack of Transportation (Medical): Not on file ??? Lack of Transportation (Non-Medical): Not on file Physical Activity: ??? Days of Exercise per Week: Not on file ??? Minutes of Exercise per Session: Not on file Physical Exam BP 113/60 Pulse 75 Ht 177.8 cm (5' 10) Comment: reported Wt 61.2 kg (135 lb) Comment: reported BMI 19.37 kg/m?? Gen: Patient of apparent stated age, appears cachectic, irritable Neck: Supple, no meningismus Abd: soft, nontender, nondistended Ext: No edema. No bony deformity Neuro Exam: MS: AAOx4, clear language, no dysarthria, follows commands CN: PERRL, EOMI, visual singh full Facial sensation intact, no facial asymmetry Hearing intact to conversation Palate elevates symmetrically, tongue protrudes midline SCM and trap strength intact Motor: Decreased bulk and tone. No pronator drift Segment Muscle Action Left Right C5 Deltoid Shoulder Abduction 5 5 C6 Biceps Elbow flexion 5 5 C6 Extensor carpi radialis Wrist extension 5 5 C7 Triceps Elbow extension 5 5 C8 Finger flexors Grasp 5 5 T1 Interossei Finger abduction 5 5 L2 Iliopsoas Hip flexion 5- 5- L3 Quadriceps Knee extension 5 5 L4 Tibialis anterior Dorsiflexion 5 5 L5 Extensor hallucis Great toe extension 5 5 S1 Gastrocnemius Plantar flexion 5 5 Sensation: Intact to light touch, throughout Reflexes: DTRs Deferred due to time constraints Coordination: Finger to nose intact, no dysmetria No tremor Gait: Able to stand from wheelchair and take several steps towards door, no significant shuffling to gait but does seem off balance, Romberg mildly positive BMP No results for input(s): NA, K, CL, CO2, BUN, CREATININE, GLUCOSE in the last 168 hours. No results for input(s): CALCIUM, MAGNESIUM, PHOS in the last 168 hours. CBC No results for input(s): WBC, HGB, HCT, PLATELET, MCV, NEUTROABS in the last 168 hours. Hepatic Function Tests and Coags No results for input(s): AST, ALT, ALKPHOS, BILITOT, BILIDIR, LDH in the last 168 hours. No results for input(s): INR, PT, PTT in the last 72 hours. Diabetes and Lipids No results for input(s): HA1C, HAZJS7B, HSX7SWKY, LABGLUC2, MICROALBUR in the last 168 hours. No results for input(s): CHLPL, HDL, TRIG, LDLDIRECT in the last 168 hours. Additional Testing No results for input(s): PHART, OBD7HBK, PO2ART, SSH7MFV in the last 168 hours. No results for input(s): LDH, HAPTOGLOBIN, URICACID in the last 168 hours. Micro Microbiology Results (Last 30 days) No results found for the last 720 hours. Pending Labwork No current labs Imaging/EKG 08/26/2020 MRI Brain 02/18/2021 CTH wo 1. Multiple sites of subarachnoid and intraventricular hemorrhage as detailed above. No significantmass effect. 2. Small subdural hematoma along the falx. 3. Interval increased size of a 1.1 cm left convexity subdural hygroma. 4. Extensive chronic dental disease associated with chronic maxillary sinus inflammation and reactive osseous changes. 5. No acute facial fractures. 6. No acute cervical spine fractures. 08/27/2020 24hr Holter Monitor Predominant rhythm is sinus, with normal range and circadian variation. No significant supraventricular or ventricular ectopy. ??No atrial fibrillation/flutter. No symptoms over monitored duration 4-week Holter (10/25/20) through [facility] ??Conclusions::/Recommendations ?1. The patient wore the monitor (Mobile Cardiac Telemetry) for a total of 28 days, 3 hours and42 minutes over the 30 day monitoring period. ?2. The baseline rhythm was sinus rhythm at 52 bpm. ?3. The predominant rhythm was sinus rhythm with heart rates of 36 bpm to 103 bpm with an average HR of 56 bpm. Bradycardia <60bpm was observed 66% of the time and tachycardia >100bpm was observed <1% of the time. There were no pauses of greater than or equal to 3 seconds. ?4. There were rare supraventricular complexes (<1% burden). ?5. There were rare isolated ventricular extrasystoles (<1% burden). ?6. There were no symptoms reported. 02/19/2021 Carotid Duplex RIGHT: A thin layer of circumferential plaque is present in the common carotid artery causing minimal stenosis. There is bulky irregular plaque in the proximal internal carotid artery causing 16-49% stenosis when compared to the more distal internal carotid artery. The bifurcation level is in the mid neck. LEFT: A thin layer of circumferential plaque is present in the common carotid artery causing minimal stenosis. There is irregular plaque in the proximal internal carotid artery causing <15% stenosis when compared to the more distal internal carotid artery. The bifurcation level is in the mid neck. Vertebral Artery Data: Patent vertebral arteries with normal antegrade Doppler waveforms and velocities bilaterally. 02/21/2021 Bilateral LE Duplex RIGHT: ??No evidence of lower extremity deep venous thrombosis. LEFT: ??No evidence of lower extremity deep venous thrombosis. 02/19/2021 TTE 1. The left ventricular chamber size is normal. Left ventricular wall thickness is normal. The quantitative left ventricular ejection fraction by biplane Damico's method is 64%. There are no left ventricular segmental wall motion abnormalities. 2. Right ventricular chamber size, wall thickness, and systolic function are within normal limits. The estimated pulmonary artery systolic pressure is 20 mmHg. 3. The aortic valve is not well visualized. Moderate aortic leaflet calcification is visualized. There is mild aortic valve stenosis. The mean trans-valvular gradient across the aortic valve is 10 mmHg. The calculated aortic valve area is 1.5 cm2. There is no evidence of aortic regurgitation. 4. See remainder of report for additional findings. There is no prior study. 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 This is a complicated picture of multiple cranial insults and breakthrough epilepsy related to either underlying infection, possibly from urinary source or extremely poor dentition. His says he is going to the dentist soon. Referred for PT as he has ongoing unsteadiness requiring a walker. Follow up anticipated with Dr. Villa as he is now seeing patients again. # Post Stroke Epilepsy - continue vimpat 200mg BID - seeing dentist for tooth decay - follow up with Dr. Villa # R MCA Infarct of unclear source - continue ASA 81mg - modify stroke risks of HTN, HLD as able with primary care - consider repeating zio in future for occult afib # Instability/Gait Disorder - external PT referral Jasper Astudillo PGY-[address] Mohamud Neurology Staff Note I have reviewed the resident's history during the visit and I agree with the details as written. Myphysical examination confirms the resident's findings. The assessment and plan were formulated in discussion with me at the time of the visit and I agree with them as documented. Katharine Mohamud D.O. Neurology Department [facility] [email or web address] documented in this encounter Miscellaneous Notes * Addendum Note - Katharine Mohamud DO - 05/01/2021 2:00 PM EDTAddended by: KATHARINE MOHAMUD on: 05/19/2021 06:30 PM Modules accepted: Level of Service documented in this encounter Plan of Treatment Upcoming Encounters Date Type Department Care Team (Late st [facility]) Description 11/09/2024 10:30 AM EDT Office Visit Radiation Oncology at [address] [phone] Taya De La Vega PA [facility] [address] [place] [address] 11/13/2024 2:00 PM EDT Office Visit Hematology/Oncology at [address] [phone] Krit Kennedy MD [facility] [address] [place] [address] Alem Lazaro APRN [address] [place] [address] DR HEMATOLOGY AND ONCOLOGY [place], [place] [id number] Scheduled Referrals Name Type Priority Associated Diagnoses Orde r Schedule Referral to Physical Therapy Outpatient Referral Routine Gait disorder Ordered: 05/01/2021 documented as of this encounter Visit Diagnoses Diagnosis Gait disorder Abnormality of gait documented in this encounter Care Teams Study Hall Supervisor Relationship Specialty Start Date End Date Alfredo Montoya DO [address] [place] [id number] PCP - General Internal Medicine 12/04/19 04/27/23 documented as of this encounter
--- OUTSIDE RECORDS SUMMARY | 2024-05-24 19:28 | XMS_ITS | Encounter Summary ---
Author Organization [facility] Address [facility] [place] [address] Care Team Providers Care Face Boss Name Role Phone Alfredo Montoya DO Primary Care Provider [phone] Encounter Details Date Type Department Care Team (Late st Contact Info) Description 03/14/2021 10:30 AM EDT [place] [phone] Silvia Zapata APRN [facility] [address] Trauma Social History Tobacco Use Types Packs/Day Years [...] Sign Reading Time Taken Comments Blood Pressure 116/67 03/14/2021 10:18 AM EDT Pulse 60 03/14/2021 10:18 AM EDT Temperature 36.1 ??C (97 ??F) 03/14/2021 10: 18 AM EDT Respiratory Rate - - Oxygen Saturation - - Inhaled Oxygen Concentration - - Weight 58.8 kg (129 lb 10.1 oz) 021 10:18 AM EDT Height 177.8 cm (5' 10) 03/14/2021 10: 18 AM EDT Body Mass Index 18.6 03/14/2021 10:18 AM EDT documented in this encounter Progress Notes * Silvia Zapata, [address] - 03/14/2021 10:30 AM EDT Name: Narcisa Eduardo : 1945 PCP: Alfredo Montoya, REF: Alfredo Montoya Date of Service: 03/14/2021 CHIEF COMPLAINT 2 week follow up s/p Left convexity SDH, parafalcine SDH, tSAH HISTORY OF PRESENT ILLNESS Narcisa Eduardo??is a 75 y.o.??male?? with history of PMH of HTN, non-Hodgkin's lymphoma, CVA [distal MCA occlusion/RIGHT frontal infarct], history of aneurysm s/p embolization, seizures (on Vimpat) seen in follow up of LEFT subdural hygroma, parafalcine SDH, and tSAH after sustaining a fall while going on his way to appointments at [facility]. Description of events leading up to injury includes: ??Patient was outside [facility], there for a urinary retention and PCP appointment, was sitting on a bench. His went to get the car and heard a thud. She turned around and saw him on the cement unresponsive, reportedly for two minutes. Patient was seen by [place] [facility] and brought to Emergency Room and subsequently transferred to [facility]. He is accompanied by his today; doing quite well at home. He denies fevers, seizure, diplopia,blurred vision, has long standing hearing problems. Denies focal motor or sensory changes. Doing home PT. Using walker for stability at home. He remains on 81 mg aspirin and on Vimpat 200 mg BID (Dose increased during admission to 200 mg BID after breakthrough seizure) He reports periods of confusion when waking up at night; feeling disoriented. He continues to have urinary catheter in and will see urologist on 03/21 in [place] to have catheter removed. Pt treatedfor UTI during his admission. Has h/o frequent UTI. PAST MEDICAL HISTORY Patient Active Problem List Diagnosis Code ??? 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 Malignant neoplasm of prostate C61 ??? Intracranial bleed I62.9 ??? Brain aneurysm I67.1 ??? Trauma T14.90XA ??? Severe protein-calorie malnutrition E43 Past Medical History: Diagnosis Date ??? AAA [...] ??? COLONOSCOPY 2012 date is approximate. at [facility] Dr Ko ??? PROSTATE BIOPSY 11/23/2019 ALLERGIES Allergies Allergen Reactions ??? Peanut Anaphylaxis ??? Contrast [Iodine And Iodide Containing Products] Hives ??? Depakote [Divalproex] Other (See Comments) Thrombocytopenia and spontaneous bleeding MEDICATIONS Current Outpatient Medications: ??? cholecalciferol, Vitamin D3, (Vitamin D3) 1,000 unit Tablet, Take by mouth., Disp: , Rfl: ??? Lactobacillus acidophilus (PROBIOTIC ORAL), TAKE ONE TABLET BY MOUTH EVERY DAY, Disp: , Rfl: ??? lacosamide (Vimpat) 200 mg Tablet, Take 1 tablet by mouth 2 times daily., Disp: 60 tablet, Rfl:0 ??? acetaminophen (Tylenol) 325 mg Tablet, Take 3 tablets by mouth every 6 hours., Disp: 30 tablet,Rfl: 1 ??? senna-docusate (Pericolace) 8.6-50 mg Tablet, Take 1 tablet by mouth 2 times daily., Disp: 60 tablet, Rfl: 11 ??? buPROPion (Wellbutrin) 75 mg Tablet, Take 1 tablet by mouth every evening., Disp: 30 tablet, Rfl: 0 ??? tamsulosin (Flomax) 0.4 mg Capsule, TAKE 1 CAPSULE BY MOUTH EVERY DAY 30 MINUTES AFTER THE SAMEMEALTIME EACH DAY FOR PROSTATE/URINARY SYMPTOMS., Disp: , Rfl: ??? multivit with minerals/lutein (MULTIVITAMIN 50 PLUS ORAL), Take by mouth., Disp: , Rfl: ??? aspirin EC 81 mg Tablet, Delayed Release (E.C.), TAKE ONE TABLET BY MOUTH EVERY DAY TO PREVENT STROKE/HEART ATTACK OR FOR PAIN/SWELLING/INFLAMMATION, Disp: , Rfl: ??? folic acid (Folvite) 1 mg Tablet, TAKE ONE TABLET BY MOUTH EVERY DAY VITAMIN/NUTRITION SUPPLEMENT, Disp: , Rfl: ??? valproate (Depakene) 250 mg/5 mL Solution, TAKE ONE TABLESPOONFUL BY MOUTH EVERY TWELVE HOURS, Disp: , Rfl: ??? potassium chloride ER (K-Dur/Klor-Con) 10 mEq Tablet Sustained Release, TAKE ONE TABLET BY MOUTH EVERY DAY TO SUPPLEMENT POTASSIUM, Disp: , Rfl: ??? atorvastatin (Lipitor) 80 mg Tablet, Take 80 mg by mouth daily., Disp: , Rfl: ??? lisinopriL (Prinivil;Zestril) 10 mg Tablet, Take 10 mg by mouth daily., Disp: , Rfl: SOCIAL HISTORY Social History Socioeconomic History ??? Marital status: Spouse name: Not on file ??? Number of children: 3 ??? Years of education: Not on file ??? Highest education level: Not on file Occupational History ??? 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 Occupation: [employer] Comment: [employer] Tobacco Use ??? Smoking status: Current Every [...] Strain: ??? Difficulty of Paying Living Expenses: Food Insecurity: ??? Worried About Running Out of Food in the Last Year: ??? Ran Out of Food in the Last Year: Transportation Needs: ??? Lack of Transportation (Medical): ??? Lack of Transportation (Non-Medical): Physical Activity: ??? Days of Exercise per Week: ??? Minutes of Exercise per Session: FAMILY HISTORY Family History Problem Relation Age of Onset ??? Prostate Cancer Father REVIEW OF SYSTEMS General: Denies recent fever, chills, or weight changes. Eyes: Denies recent changes in vision. ENT: Denies recent changes in hearing or dysphagia. Cardiovascular: Denies CP, palpitations, or irregular heart beat. Respiratory: Denies SOB, cough, or recent respiratory infections. GI: Denies N/V/D/C or change in appetite. : Denies changes in urination; frequency, urgency or burning. Frequent UTI, catheter currently inplace Musculoskeletal: Denies weakness, numbness, or tingling in extremities. Heme: Denies recent or history of bleeding or clotting disorder. Neuro: Denies recent changes in mentation, memory, or behavior. PHYSICAL EXAM BP 116/67 (BP Location (NBP): Right arm, Patient Position: Sitting, BP Cuff Sizes: Adult (25-34 cm)) Pulse 60 Temp 36.1 ??C (97 ??F) (Temporal) Ht 177.8 cm (5' 10) Wt 58.8 kg (129 lb 10.1 oz) BMI 18.60 kg/m?? Constitutional: Thin male in wheelchair in NAD. Neuro: Mental Status/Cognitive: Awake, alert, answers questions appropriately. Cranial Nerves: CN II - Vision grossly intact, PERRLA CN III, IV, - EOMI CN V - V1-3 dermatomes intact to light touch CN VII - No facial asymmetry CN VIII - Hearing decreased to finger rub R>L CN IX, X - Not assessed CN XI - Shoulder shrug 5/5 bilaterally CN XII - Not assessed Motor: Normal muscle bulk and tone. No pronator drift. Strength 5/5 throughout all muscle groups inall four extremities. Sensory: Sensation grossly intact to light touch in all four extremities. Cerebellar: No dysmetria with finger to nose testing bilaterally Gait: Not evaluated. Head CT 03/14/21 1. Unchanged left subdural hygroma with similar fashion dlmk-ab-velpo midline shift compared to prior CT. 2. Expected evolution of left-sided subarachnoid hemorrhage and intraventricular/septum pellucidum hemorrhage 3. 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 4. No acute hemorrhage ASSESSMENT & PLAN 75 year old presents for 2 week follow up s/p fall at home on 02/18/[address] of LEFT subdural hygroma, parafalcine SDH, and tSAH. Accompanied by his Kinue today. Follow up head CT shows similar size of left subdural hygroma with similar degree of mild left to right midline shift, evolution of previously seen SAH and intraventricular hemorrhage and no sites of acute hemorrhage. I reviewed the results with patient and his . Has skin tear on left hand (wrapped in gauze) nearly resolved bruise over the left eye. Getting home PT; ambulating with walker. He continues on 81 mg ASA and VIMPAT 200 mg BID. Denies seizure, headache, vision changes, dizziness, weakness, NT. Has appointment to have giraldo catheter removed on 03/21 and follow up with Dr. Garcia, his neurologist Plan: Follow up CT in [place] in 6 weeks with TOV ( OR return to if he has another appointment at ) Silvia Zapata APRN documented in this encounter Plan of Treatment Upcoming Encounters Date Type Department Care Team (Late st Contact Info) Description 11/09/2024 10:30 AM EDT Office Visit Radiation Oncology at [address] [phone] Taya De La Vega PA [facility] [place] [address] 11/13/2024 2:00 PM EDT Office Visit Hematology/Oncology at [address] [phone] Kirt Kennedy MD [facility] [place] [address] Alem Lazaro APRN [address] [place] [address] DR HEMATOLOGY AND ONCOLOGY [place], [place] [id number] documented as of this encounter Visit Diagnoses Diagnosis Trauma Injury, other and unspecified, unspecified site documented in this encounter Care Teams Face Boss Relationship Specialty Start Date End Date Alfredo Montoya DO [address] [place] [id number] PCP - General Internal Medicine 12/04/19 04/27/23 documented as of this encounter
--- OUTSIDE RECORDS SUMMARY | 2024-05-24 19:28 | XMS_ITS | Encounter Summary ---
Author Organization [facility] Address [facility] [address] [place] [address] Care Team Providers Care Home Restoration Service Supervisor Name Role Phone Jan Alfredo Jorge GARDNER Primary Care Provider [phone] Encounter Details Date Type Department Care Team (Late Contact Info) Description 04/16/2023 Ancillary Procedure Radiology Library [place] [facility] [phone] Adan Navarrete Jr., MD [facility] [place] [address] Social History Tobacco Use Types Packs/Day Years [...] AM EDT Office Visit Radiation Oncology at [address] [phone] Taya De La Vega PA [facility] HEMATOLOGY [place] [address] 11/13/2024 2:00 PM EDT Office Visit Hematology/Oncology at [address] [phone] Kirt Kennedy MD [facility] DR HEMATOLOGY [place] [address] Alem Lazaro, [address] HEMATOLOGY AND ONCOLOGY [place], [place] [address] documented as of this encounter Procedures Procedure Name Priority Date/Time Associated Diagnosis Comments FILM LIBRARY STORAGE ONLY CT ABDOMEN AND PELVIS Routine 04/16/2023 12:00 AM EDT documented in this encounter Results * Film Library- Storage Only CT Abdomen & Pelvis (04/16/2023 12:00 AM EDT) Narrative [facility] - 09/13/2023 6:15 PM EST This exam is auto-finalizing. It's purpose is for storage only. Adan Navarrete Jr., MD IMG FILM LIBRARY O RDERABLES [place], [place] documented in this encounter Visit Diagnoses Not on filedocumented in this encounter Care Teams Home Restoration Service Supervisor Relationship Specialty Start Date End Date Alfredo Montoya DO [address] [place] [id number] PCP - General Internal Medicine 12/04/19 04/27/23 documented as of this encounter
--- OUTSIDE RECORDS SUMMARY | 2024-05-24 19:28 | XMS_ITS | Encounter Summary ---
Author Organization [facility] Address [facility] [place] [address] Care Team Providers Care Marketing Communications Associate Name Role Phone Alfredo Montoya DO Primary Care Provider [phone] Encounter Details Date Type Department Care Team (Late st Contact Info) Description 04/24/2021 2:30 PM EDT Office Visit Radiation Oncology at [address] [phone] Jen Eugene APRN [facility] [place] [address] Malignant neoplasm of prostate Social History Tobacco Use Types Packs/Day Years [...] Sign Reading Time Taken Comments Blood Pressure 143/81 04/24/2021 2:45 PM EDT Pulse 73 04/24/2021 2:45 PM EDT Temperature 36.3 ??C (97.3 ??F) 04/24/2021 2:45 PM ED T Respiratory Rate 16 04/24/2021 2:45 PM EDT Oxygen Saturation 100% 04/24/2021 2:45 PM EDT Inhaled Oxygen Concentration - - Weight 60.9 kg (134 lb 3.2 oz) 04/24/2021 2:45 P M EDT Height 177.8 cm (5' 10) 04/24/2021 2:45 PM EDT Body Mass Index 19.26 04/24/2021 2:45 PM EDT documented in this encounter Progress Notes * Jen Eugene, DIRECTOR EXECUTIVE COMMUNICATIONS - 04/24/2021 1:00 PM EDTSummary: Unfavorable Intermediate-Risk Prostate Cancer [facility] [place] [address] Phone: RADIATION ONCOLOGY FOLLOW UP NOTE Date of visit: 04/24/2021 Patient Narcisa Eduardo 1945 PCP: Alfredo Montoya [...] Prior consultations / recommendations: Dr Thomas - [facility] - 12/01/19 - options of , RP, RT reviewed. Patient interested in learning more about RT. Referral placed.? PSA History:?? 11/03/19 - 12.9 ?? Pathology Results / Location:?? TRUS Bx 11/23/19 ([facility]) - ?Gl 4+3 x 1 - Left ?Gl 3+4 x 3 - Bilat ?Gl 3+3 x 2 - Bilat ?? Pertinent Imaging Studies:?? TRUS 11/23/19 - 46 cc gland ?? Interim HPI: When asked how he is doing he relates history of brain aneurysm and challenges with memory. He required home care when he was discharged from the hospital and has had PT which has been helpful to him in regaining stamina and function. His is present during this visit in order to help with history, review his medications. Narcisa has had a urinary catheter placed because of continual urinary leakage. Prior to catheterization he needed to wear Depends all the time and needed to change these three times a day. is feeling this has made management much better. He is draining clear light yellow urine. Only uncomfortable sometimes with tug on catheter with movement. Currently has a urinary catheter. Past Medical History: Diagnosis Date ??? AAA [...] ??? COLONOSCOPY 2011 date is approximate. at [facility] Dr Ko ??? PROSTATE BIOPSY 11/23/2019 Medications 03/14/21 1023 Medication Sig Taking? cholecalciferol, Vitamin D3, (Vitamin D3) 1,000 unit Tablet Take by mouth. Lactobacillus acidophilus (PROBIOTIC ORAL) TAKE ONE TABLET BY MOUTH EVERY DAY lacosamide (Vimpat) 200 mg Tablet Take 1 tablet by mouth 2 times daily. acetaminophen (Tylenol) 325 mg Tablet Take 3 tablets by mouth every 6 hours. senna-docusate (Pericolace) 8.6-50 mg Tablet Take 1 tablet by mouth 2 times daily. buPROPion (Wellbutrin) 75 mg Tablet Take 1 tablet by mouth every evening. tamsulosin (Flomax) 0.4 mg Capsule TAKE 1 [...] TABLET BY MOUTH EVERY DAY VITAMIN/NUTRITION SUPPLEMENT valproate (Depakene) 250 mg/5 mL Solution TAKE ONE TABLESPOONFUL BY MOUTH EVERY TWELVE HOURS potassium chloride ER (K-Dur/Klor-Con) 10 mEq Tablet Sustained Release TAKE ONE TABLET BY MOUTH EVERY DAY TO SUPPLEMENT POTASSIUM atorvastatin (Lipitor) 80 mg Tablet Take 80 mg by mouth daily. lisinopriL (Prinivil;Zestril) 10 mg Tablet Take 10 mg by mouth daily. Review of Symptoms: I reviewed the IPSS/RISHABH/Epic-Cp survey results from today Patient concerns for today's visit: General: Fatigue:he says significant but says he is more active as time goes on Weight/appetite/diet: trying to add more wt. Respiratory:no infectious sx, no cough, cold, wheezing GI:appetite less than usual. says he does get hungry and will eat a whole plate of food. :was unable to urinate and required Sexual health:Unable to have sex related to giraldo cather Muscle skeletal: feels weak. No specific bone pain. Bone health: taking Vit D/ Calcium Neuro:had stroke in 2015 and then seizure in 2019, put on anti seizure medication then in January felland hit head on pavement. 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 Follows with [facility] neurology Mood: sucks because of the sense of malaise and fatigue Usually likes gardening but did not do. Memory is a bit of a problem. Exercise: Physical therapy at home. Smoking:currently smoking 1ppd. 50 pack year hx Alcohol:Off ETOH for last year at least , had stroke 2015 and stopped drinking Support/ social relationships: is amazing and he is very grateful to her. Advanced directives not discussed Financial/transportation concerns:not at [...] chair Physical Examination: Body mass index is 19.26 kg/m??. BP 143/81 (Patient Position: Sitting) Pulse 73 Temp 36.3 ??C (97.3 ??F) (Temporal) Resp 16 Ht 177.8 cm (5' 10) Wt 60.9 kg (134 lb 3.2 oz) Constitutional: seen with , physically no distress, gets teary talking about his health challenges. HENT: normocephalic, sclera and conjunctiva. anicteric, neck supple, no adenopathy Cardiovascular: Rate and Rhythm: Normal rate and regular rhythm. Heart sounds: Normal heart sounds. No murmur Pulmonary: Effort: Pulmonary effort is normal. Breath sounds: Normal breath sounds. No wheezing or rales. Abdomen: Soft, flat, no HSM, no masses, non-tender, active bowel sounds Genitourinary: Rectum: No inguinal adenopathy Musculoskeletal: Normal range of motion. General: No swelling or deformity. No spinal percussion tenderness No CVA tenderness Comments: Ambulates without assistance Skin: General: Skin is warm and dry. Neurological: General: No focal deficit present. Mental Status: alert and oriented to person, place, and time. Gait: Gait normal. Psychiatric: Mood and Affect: Mood normal. Behavior: Behavior normal. Thought Content: Thought content normal. Judgment: Judgment normal. New Labs Reviewed this visit: Date PSA Test Notes 04/17/21 0.64 10/24/2020 1.4 309 07/16/2021 3.1 399 Pretreatment PSA 12.9 ? 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 His He has had issues with incontinence which he manages with incontinence briefs that are changed three times a day. We discussed scheduled voiding every PSA is much lower than prior to treatment and isnow 0.64 with a normal testosterone. two hours when he is awake to reduce the level of incontinence. We reviewed Kegel exercises with patient and his . We will monitor at the time of his next visit. Hydration with water was encouraged given is recent UTI He has had significant health issues since his last visit ie a brain aneurysm and cranial bleed He was treated for this in [place]. He has a neurologist locally at [facility]. His next prostate cancer followup will be in three months with PSA and testosterone prior to visit. ?? I provided care to Mr Eduardo via telephone encounter and spent 30 minutes preparing for the virtualvisit, by reviewing previous care as documented in patient's EMR, in direct discussion with the patient over the phone and afterward coordinating and documenting in the medical record ?? Mr Eduardo had the opportunity to ask questions and I answered to best of my knowledge. He agreed to call radiation oncology in between visits with questions and concerns. ?? Medical Decision Making/Recommendations/Plan: # prostate cancer: reviewed PSA results XXX . No concerning reported symptoms or physical [...] the radiation therapy/prostate cancer Jen Eugene MSN, DIRECTOR EXECUTIVE COMMUNICATIONS, [employer] Nurse Practitioner Radiation Oncology documented in this encounter Plan of Treatment Upcoming Encounters Date Type Department Care Team (Late st Contact Info) Description 11/09/2024 10:30 AM EDT Office Visit Radiation Oncology at [address] [phone] Taya De La Vega PA [facility] HEMATOLOGY [place] [address] 11/13/2024 2:00 PM EDT Office Visit Hematology/Oncology at [address] [phone] Kirt Kennedy MD [facility] DR HEMATOLOGY [place] [address] Alem Lazaro APRN [address] [place] [address] DR HEMATOLOGY [place] [address] documented as of this encounter Visit Diagnoses Diagnosis Malignant neoplasm of prostate documented in this encounter Care Teams Marketing Communications Associate Relationship Specialty Start Date End Date Alfredo Montoya DO [address] [place] [id number] PCP - General Internal Medicine 12/04/19 04/27/23 documented as of this encounter
--- OUTSIDE RECORDS SUMMARY | 2024-05-24 19:28 | XMS_ITS | Encounter Summary ---
Author Organization [facility] [place] [address] Care Team Providers Care Office Clerk Routine Name Role Phone Amanda Pino Primary Care Provider [phone] Encounter Details Date Type Department Care Team (Late st Contact Info) Description 07/28/2023 Telephone Urology at [facility] [place] [phone] Perla Vail RN Social History Tobacco Use [...] Progress Notes * Perla Vail RN - 07/28/2023 4:58 PM EST Patient will continue probiotics. documented in this encounter Miscellaneous Notes * Telephone Encounter - Perla Vail RN - 07/28/2023 4:58 PM EST Copied from [facility] #[id number]. Topic: Specialty Dept CRMs - Generic Call >> Jul 28, 2023 8:48 AM Melvina Bobby wrote: Specialist: Adan Navarrete Relationship (if other than patient-full name): self Reason for Call: Patient states understanding of starting medication fluconazole (Diflucan) 200 mg tablet starting 08/02/23. He advises that he is also taking a probiotic and is requestiing call backto advise if he should discontinue taking it while taking the diflucan. documented in this encounter Plan of Treatment Upcoming Encounters Date Type Department Care Team (Late st Contact Info) Description 11/09/2024 10:30 AM EDT Office Visit Radiation Oncology at [address] [phone] Taya De La Vega PA [facility] [place] [address] 11/13/2024 2:00 PM EDT Office Visit Hematology/Oncology at [address] [phone] Kirt Kennedy MD [facility] [place] [address] Alem Lazaro APRN [address] [place] [address] DR HEMATOLOGY AND ONCOLOGY [place], [place] [address] documented as of this encounter Visit Diagnoses Not on filedocumented in this encounter Care Teams Office Clerk Routine Relationship Specialty Start Date End Date Amanda Pino PA [address] [place] [address] PCP - General Internal Medicine 04/28/23 documented as of this encounter
--- OUTSIDE RECORDS SUMMARY | 2024-05-24 19:28 | XMS_ITS | Encounter Summary ---
Author Organization [facility] [place] [address] Care Team Providers Care Metal Annealer Name Role Phone Amanda Pino Primary Care Provider [phone] Encounter Details Date Type Department Care Team (Late Contact Info) Description 05/21/2023 [place] [phone] None None Social History Tobacco Use Types Packs/Day Years Used Date Smoking Tobacco: Every Day Cigarettes 1 60.8 Started: 1964 Smokeless Tobacco: Never Comments:rolls on cigarettes smokes [...] encounter Miscellaneous Notes * Telephone Encounter - Maryse Mancilla - 05/21/2023 9:01 AM EDT YEISON in regards to patients appointment this morning. We need to reschedule patients visit as he was scheduled incorrectly and should be seeing Dr. Navarrete, please transfer to Maryse to schedule when patient calls back. documented in this encounter Plan of Treatment Upcoming Encounters Date Type Department Care Team (Late Contact Info) Description 11/09/2024 10:30 AM EDT Office Visit Radiation Oncology at [address] [phone] Taya De La Vega PA [facility] [address] [place] [address] 11/13/2024 2:00 PM EDT Office Visit Hematology/Oncology at [address] [phone] Kirt Kennedy MD [facility] DR [place] [address] Alem Lazaro APRN [address] [place] [address] DR HEMATOLOGY [place] [address] documented as of this encounter Visit Diagnoses Not on filedocumented in this encounter Care Teams Metal Annealer Relationship Specialty Start Date End Date Amanda Pino PA [address] [place] [address] PCP - General Internal Medicine 04/28/23 documented as of this encounter
--- OUTSIDE RECORDS SUMMARY | 2024-05-24 19:28 | XMS_ITS | Encounter Summary ---
Author Organization [facility] Address [facility] [place] [address] Care Team Providers Care Superintendent Meters Name Role Phone Amanda Pino Primary Care Provider [phone] Encounter Details Date Type Department Care Team (Latest Contact Info) Description 05/24/2023 Travel Social History Tobacco Use Types Packs/Day [...] EDT Office Visit Radiation Oncology at [address] [phone] Taya De La Vega PA [facility] [address] [place] [address] 11/13/2024 2:00 PM EDT Office Visit Hematology/Oncology at [address] [phone] Kirt Kennedy MD [facility] [address] [place] [address] Alem Lazaro APRN [address] [place] [address] [place] [address] documented as of this encounter Visit Diagnoses Not on filedocumented in this encounter Care Teams Superintendent Meters Relationship Specialty Start Date End Date Amanda Pino PA [address] [place] [address] PCP - General Internal Medicine 04/28/23 documented as of this encounter
--- OUTSIDE RECORDS SUMMARY | 2024-05-24 19:28 | XMS_ITS | Encounter Summary ---
Author Organization [facility] Address [facility] [place] [address] Care Team Providers Care Silver Holloware Assembler Name Role Phone Alfredo Montoya DO Primary Care Provider [phone] Encounter Details Date Type Department Care Team (Late st Contact Info) Description 02/27/2021 Telephone General Surgery at [facility] [place] [phone] Charleen Clement RN Social History Tobacco Use Types Packs/Day [...] encounter Miscellaneous Notes * Telephone Encounter - Charleen Clement RN - 02/27/2021 10:27 AM EDT We received a fax requesting a PA for the prescription of Vimpat 100 mg tablets, 2 tablets twice a day. The reason for the PA is the number exceeds the plan limit. I called the pharmacy and asked if we changed it to 200 mg tablet, 1 tablet twice a day would that fix the issue. She thought it might because it was the number per day that was an issue. I discussed with Nj Ram APRN and called in a script for the 200 mg tablets and we will wait to see if that one needs a PA. documented in this encounter Plan of Treatment Upcoming Encounters Date Type Department Care Team (Late st Contact Info) Description 11/09/2024 10:30 AM EDT Office Visit Radiation Oncology at [address] [phone] Taya De La Vega PA [facility] DR HEMATOLOGY [place] [address] 11/13/2024 2:00 PM EDT Office Visit Hematology/Oncology at [address] [phone] Kirt Kennedy MD [facility] DR HEMATOLOGY [place] [address] Alem Lazaro APRN [address] [place] [address] DR HEMATOLOGY AND ONCOLOGY [place], [place] [id number] documented as of this encounter Visit Diagnoses Not on filedocumented in this encounter Care Teams Silver Holloware Assembler Relationship Specialty Start Date End Date Alfredo Montoya DO [address] [place] [id number] PCP - General Internal Medicine 12/04/19 04/27/23 documented as of this encounter
--- OUTSIDE RECORDS SUMMARY | 2024-05-24 19:28 | XMS_ITS | Encounter Summary ---
Author Organization [facility] Address [facility] [place] [address] Care Team Providers Care Rn New Grad Name Role Phone Alfredo Montoya DO Primary Care Provider [phone] Reason for Visit * Reason Onset Date Comments Other 03/17/2021 Encounter Details Date Type Department Care Team (Late st Contact Info) Description 03/17/2021 Telephone [place] [phone] Silvia Zapata, [facility] [place] [address] Other Social History Tobacco Use Types Packs/Day Years [...] encounter Miscellaneous Notes * Telephone Encounter - Sangeeta Pino - 05/08/2021 3:15 PM EDT Faxed another request to push CT images from 04/02 Report in edh, send IB to [facility] to review * Telephone Encounter - Sangeeta Pino - 05/01/2021 10:06 AM EDT Called Roxy to let her know ordered w/o, she believes CT was done on 04/02, she will track down and fax report to us. Faxing [facility] push request for images for [facility] to review. * Telephone Encounter - Jesi Magallanes - 03/28/2021 12:00 PM EDT Roxy Garcia RN at [facility] is calling to speak about the patients CT. Roxy is asking if the CT is to be done with or without contrast. Please contact Melvina to discuss further. * Telephone Encounter - Latrice Redmond - 03/17/2021 9:30 AM EDT Spoke with pt and updated safety questions. Pt advised he would like imaging done at [facility] with f/u TOV with [facility]. Imaging order already External.Needs updated authorization from [facility]. Once [facility] is scheduled, call pt to book f/u TOV with [facility]. * Telephone Encounter - Sangeeta Pino - 03/17/2021 8:02 AM EDT Patient needs f/u appointment(s): With [facility] on/around 04/25/21 6 weeks OV or TOV, s/p L Hygroma, parafalcine SDH, tSAH, CT or [facility] Prior * Telephone Encounter - Sangeeta Pino - 03/17/2021 8:02 AM EDT Narcisa Eduardo - 03/14/21 Silvia Zapata APRN Sent: Hua March 15, 2021 ??2:47 PM To: [facility] [place] ?? Follow-up and Dispositions Check-out Note: Follow up head CT 6 weeks - may either be at with in person visit ??or in [place] with TOV Routing History documented in this encounter Plan of Treatment Upcoming Encounters Date Type Department Care Team (Late st Contact Info) Description 11/09/2024 10:30 AM EDT Office Visit Radiation Oncology at [address] [phone] Taya De La Vega PA [facility] DR HEMATOLOGY [place] [address] 11/13/2024 2:00 PM EDT Office Visit Hematology/Oncology at [address] [phone] Kirt Kennedy MD [facility] DR HEMATOLOGY [place] [address] Alem Lazaro APRN [address] [place] [address] DR HEMATOLOGY AND ONCOLOGY [place], [place] [phone] documented as of this encounter Visit Diagnoses Not on filedocumented in this encounter Care Teams Rn New Grad Relationship Specialty Start Date End Date Alfredo Montoya DO [address] [place] [address] PCP - General Internal Medicine 12/04/19 04/27/23 documented as of this encounter
--- OUTSIDE RECORDS SUMMARY | 2024-05-24 19:28 | XMS_ITS | Encounter Summary ---
Author Organization [facility] Address [facility] [place] [address] Care Team Providers Care Railroad Surveyor Name Role Phone Amanda Pino Primary Care Provider [phone] Encounter Details Date Type Department Care Team (Late st Contact Info) Description 07/27/2023 [place] [address] Maycol Caruso MD [facility] [place] [address] Social History Tobacco Use Types Packs/Day Years [...] as of this encounter Progress Notes * Maycol Caruso MD - 07/27/2023 11:01 AM EST Patient asymptomatic with pre-op urine culture growing 50-100K yeast. No fungal balls on prior CT scan. Prescribing Fluconazole for 3 days pre-op and 4 days post-op. Called patient and discussed thiswith him. documented in this encounter Plan of Treatment Upcoming Encounters Date Type Department Care Team (Late st Contact Info) Description 11/09/2024 10:30 AM EDT Office Visit Radiation Oncology at [address] [phone] Taya De La Vega PA [facility] DR HEMATOLOGY [place] [address] 11/13/2024 2:00 PM EDT Office Visit Hematology/Oncology at [address] [phone] Kirt Kennedy MD [facility] HEMATOLOGY [place] [address] Alem Lazaro APRN [address] [place] [address] DR HEMATOLOGY AND ONCOLOGY [place], [place] [address] documented as of this encounter Visit Diagnoses Not on filedocumented in this encounter Care Teams Railroad Surveyor Relationship Specialty Start Date End Date Amanda Pino PA [address] [place] [address] PCP - General Internal Medicine 04/28/23 documented as of this encounter
--- OUTSIDE RECORDS SUMMARY | 2024-05-24 19:28 | XMS_ITS | Encounter Summary ---
Author Organization [facility] Address [facility] [place] [address] Care Team Providers Care Wire Stitcher Operator Name Role Phone Amanda Pino Primary Care Provider [phone] Encounter Details Date Type Department Care Team (Latest Contact Info) Description 05/21/2023 Travel Social History Tobacco Use Types Packs/Day [...] EDT Office Visit Radiation Oncology at [address] [phone] [address] [facility] DR [place] [address] 11/13/2024 2:00 PM EDT Office Visit Hematology/Oncology at [address] [phone] [facility] DR [place] [address] Alem Lazaro APRN [address] [place] [address] [place] [address] documented as of this encounter Visit Diagnoses Not on filedocumented in this encounter Care Teams Wire Stitcher Operator Relationship Specialty Start Date End Date Amanda Pino PA [address] [place] [address] PCP - General Internal Medicine 04/28/23 documented as of this encounter
--- OUTSIDE RECORDS SUMMARY | 2024-05-24 19:28 | XMS_ITS | Encounter Summary ---
Author Organization [facility] Address [facility] [place] [address] Care Team Providers Care Aircraft Detail Draftsperson Name Role Phone Amanda Pino Primary Care Provider [phone] Encounter Details Date Type Department Care Team (Late st Contact Info) Description 06/17/2023 11:15 AM EDT Office Visit Radiation Oncology at [address] [phone] Taya De La Vega PA [facility] DR [place] [address] Malignant neoplasm of prostate (Primary Dx); S/P [...] Sign Reading Time Taken Comments Blood Pressure 118/63 06/17/2023 11:04 AM EDT Pulse 70 06/17/2023 11:04 AM EDT Temperature 36.1 ??C (96.9 ??F) 06/17/2023 11:04 AM E DT Respiratory Rate 18 06/17/2023 11:04 AM EDT Oxygen Saturation 99% 06/17/2023 11:04 AM EDT Inhaled Oxygen Concentration - - Weight 54.9 kg (121 lb) 06/17/2023 11:04 AM EDT Height 177.8 cm (5' 10) 06/17/2023 11:04 AM EDT Body Mass Index 17.36 06/17/2023 11:04 AM EDT documented in this encounter Progress Notes * Taya De La Vega PA - 06/17/2023 11:15 AM EDT [facility] [place] [address] FOLLOW-UP: Patient: Narcisa Eduardo : 1945 PCP: [facility] Primary Care Urologist: Adan Navarrete Jr., MD ([facility]; last seen 05/24/23), also sees Urology at [facility] Radiation Oncologist: Que Evans MD Chief [...] Patient declined ADT Current treatment: Surveillance HPI: 77 y.o. 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 He initially presented with an elevated PSA (12.9 on 11/03/19). ERIKA did not reveal any nodules, per patient. TRUS biopsyon 11/23/19 showed Townsend 4+3 x 1 on the left, Townsend 3+4 x 3 bilaterally, and Townsend 3+3 x 2 bilaterally. On 12/01/19, patient saw Dr. Thomas at the [facility], who discussed various treatment options. Patient [...] a history. He follows with Neurology at [facility] (Dr. Wendie Garcia). He also has a history of follicular lymphoma, managed by Dr. Kennedy at [facility]. [facility] and is currently on surveillance with annual labs. Interval Symptoms Since Last Visit on 10/22/22: General: Feels run down and tired. Pain: 0/10 Fatigue/Activity Level: Watches TV. Weight/Appetite/Diet: Weight was 146.9 lbs in 10/2022, 121 lbs today. thinks his weight has been stable for the past 4 of those 7 months. Patient reports decreased appetite, eats smaller portions, and only 2 meals per day. Is also relatively inactive. PCP and Nutrition are monitoring weight anddiet. Respiratory: Chronic occasional cough 2/2 tobacco use. [...] and unsure of last UTI, possibly in 11/2022. Follows with Urology for bilateral nephrolithiasis requiring ureteroscopy and stenting. No acute changes. Today, patient reports feeling like he is able to fully empty his bladder, but then might have to urinate again shortly after. Patient denies nocturia, but reports 1 episode per night. Goes through 3 Depends per day, but does not feel the leakage. Takes Flomax 0.4 mg PO BID, managed by Urology. Denies hematuria, dysuria, difficulty initiating urination. Sexual Health: No acute concerns. Does not want to discuss further. Musculoskeletal: Per , patient has generalized weakness d/t inactivity. Bone Health: Reports a left shoulder fracture/injury 2-3 months ago, now s/p PT. No residual pain/issues. Takes a Vitamin D supplement. Neurological: H/o stroke, brain bleeds, and seizures. On Vimpat 200 mg BID, last seizure about 3 months ago. Follows with Neurology. Denies headaches, peripheral neuropathy. Mood: States his mood is medium. Tobacco Use: Smokes 1-1.25 PPD x 50 years. Not interested in quitting at this time. Alcohol Use: None since stroke. Social Support: . IPSS and RISHABH (patient entered, provider reviewed), last 5 values: Prostate IPSS and RISHABH(Pt Entered): last 5 values 01/01/2020 11:05 AM 10/23/2021 10:26 AM 10/22/2022 1:01 PM 06/17/2023 11:03 AM Prostate Today's Scores Sexual Health Inventory for Men 25 24 25 4 (Severe ED) International Prostate Symptom Score 8 (Moderate LUTS) 15 (Moderate LUTS) 15 (Moderate LUTS) 15 (Moderate LUTS) Allergies: Allergies Allergen Reactions Contrast [Iodine And Iodide Containing Products] Hives Depakote [Divalproex] Other (See Comments) Thrombocytopenia and spontaneous bleeding Current Medications: Current Outpatient Medications on File Prior to Visit Medication Sig Dispense Refill potassium chloride ER (Klor-Con, K-Tab) 10 mEq [...] tablet Take 81 mg by mouth daily. mirtazapine (Remeron) 15 mg Tablet TAKE ONE-HALF [...] 24 hrs: Temp Pulse Resp BP SpO2 06/17/23 1104 36.1 ??C (96.9 ??F) 70 18 118/63 99 % Constitutional: well-groomed, mildly conversant. NAD. HEENT: normocephalic. PERRL, EOMI, sclerae anicteric, conjunctivae non-injected. Moist mucous membranes, no thrush or oral lesion. Neck: supple, trachea midline. No adenopathy. Respiratory: non-labored respirations with symmetrical expansion. Lungs CTA bilaterally. Cardiovascular: RRR without murmurs or gallops. No peripheral edema. Abdomen: soft, non-tender, no palpable masses or HSM. Normoactive bowel sounds x 4 quadrants. Musculoskeletal: [...] 04/15/22 0.23 375 10/15/22 0.17 05/19/23 0.17 Assessment & Plan: #Prostate cancer: - Labs [...] placed: none Follow-Up: Next visit: 6 months from 04/2023 labs (10/2023) Labs ([facility]): TIANA Eduardo had the opportunity to ask questions, which were answered to the best of my knowledge.Narcisa Eduardo agreed to contact Radiation Oncology in between visits if he has any questions/concerns or new symptoms in regards to his radiation therapy/prostate cancer. Taya De La Vega PA-C Radiation Oncology Time Attestation: I certify spending at least 45 minutes in providing care to this patient today as reflected by the following activities: - review of the medical record - discussion of medical decision making - documenting the outcome of today's visit as above documented in this encounter Plan of Treatment Upcoming Encounters Date Type Department Care Team (Late st Contact Info) Description 11/09/2024 10:30 AM EDT Office Visit Radiation Oncology at [address] [phone] Taya De La Vega PA [facility] DR [place] [address] 11/13/2024 2:00 PM EDT Office Visit Hematology/Oncology at [address] [phone] Kirt Kennedy MD [facility] DR [place] [address] Alem Lazaro APRN [address] [place] [address] DR HEMATOLOGY AND ONCOLOGY [place], [place] [phone] documented as of this encounter Procedures Procedure Name Priority Date/Time Associated Diagnosis Comments LAB SCAN 11/03/2023 12:00 AM EDT documented in this encounter Results * SCAN DOC: LAB (11/03/2023 12:00 AM EDT) Narrative 11/03/2023 12:00 AM EDT Ordered by an unspecified provider. Scanning Provider MEDIA MGR SCAN EXT O RDR/RSLT documented in this encounter Visit Diagnoses Diagnosis Malignant neoplasm of prostate- Primary S/P radiotherapy Convalescence following radiotherapy documented in this encounter Care Teams Aircraft Detail Draftsperson Relationship Specialty Start Date End Date Amanda Pino PA [address] [place] [address] PCP - General Internal Medicine 04/28/23 documented as of this encounter
--- OUTSIDE RECORDS SUMMARY | 2024-05-24 19:28 | XMS_ITS | Encounter Summary ---
Author Organization [facility] Address [facility] [place] [address] Care Team Providers Care Flagman Name Role Phone Amanda Pino Primary Care Provider [phone] Reason for Visit * Reason Comments Nephrolithiasis * Consultation (Routine) - Closed Specialty Diagnoses / Procedures Referred By Rogers t Referred To Contact Urology Diagnoses Calculus of kidney Amanda Pino PA [address] [place] [address] [facility] [place] [address] Referral ID Status Reason Start Date Expiration Date V isits Requested Visits Authorized [id number] Closed Consult, Test & Treat PCP Updated and/or Approved 04/23/2023 10/20/2023 [id number] Encounter Details Date Type Department Care Team (Late st Contact Info) Description 05/24/2023 11:00 AM EDT [place] [phone] Adan Navarrete Jr., MD [facility] [place] [address] Nephrolithiasis Social History Tobacco Use Types Packs/Day [...] Sign Reading Time Taken Comments Blood Pressure 99/57 05/24/2023 11:04 AM EDT Pulse 72 05/24/2023 11:04 AM EDT Temperature - - Respiratory Rate - - Oxygen Saturation - - Inhaled Oxygen Concentration - - Weight - - Height - - Body Mass Index - - documented in this encounter Progress Notes * Adan Navarrete Jr., MD - 05/24/2023 11:00 AM EDT Images from the original note were not included. HPI: Narcisa Eduardo is a 77 y.o. man who presents for urologic consultation regarding urolithiasis. He has a past medical history notable for seizure disorder, hypertension, depression, [place] 4+3 prostate cancer status post radiation persistent LUTS, increased postvoid residual and microscopic hemat uria. By report he has bilateral nonobstructive nephrolithiasis. By report greater than 2 and half centimeters branched stone burden on the right kidney and greater than 1 and half centimeters in theleft kidney. He underwent left ureteroscopy and bilateral stent placement in November 2022 with a postoperative seizure. He was cleared by neurology for second stage ureteroscopy. He then underwent second and third stage ureteroscopies in December 2022. Postop renal ultrasound revealed persistent bilateralnephrolithiasis. In February 2023 he again attempted bilateral ureteroscopy at the [facility], but were unable to access either ureteral orifice ease uretereroscopically and placed bilateral 8 [place] stents. By report he was scheduled to undergo left ureteroscopy laser lithotripsy and right stent removal on 04/29/2023. These notes have not been forwarded, but he states he was told he would require PCNL to remove the stones andthat it cannot be performed at the [facility]. PMHx: Postoperative delirium, depression, bradycardia, subdural hemorrhage, [...] CVA tenderness to percussion bilaterally Imaging Studies: [facility] has not yet forwarded the most recent CAT scan images for review. I independently reviewed the CT report which notes CT from 04/16/2023 reveals bilateral stents in position. Right lower pole staghorn stone is identified. Branching left renal stones are also identified. I have also independently reviewed CT from 02/18/21. This confirms no definite retrorenal structuresat the time of CT, although colon in proximity to lateral aspect of kidney Impression/Plan: Reported >2cm lower pole staghorn stone of right kidney, possible left renal stones s/p failed URS at outside facility 1)Branched right renal stone >2.5cm. We discussed management options of watchful waiting, open or laparoscopic surgery, PCNL, Ureteroscopy, and SWL and the relative risks, benefits, limitations, and anticipated single procedure stone free rates for each. We discussed need to receive and review most recent CT. I have again contacted [facility] urology team to request. With regard to right percutaneous nephrolithotomy, we [...] the options, and has requested that we tentatively plan to proceed with PCNL, pending receipt and review of CT. CBC and BMP ordered. Urine will be sent for culture to aid in ant ibiotic selection. I have asked him to call with any additional questions. We discussed that PCNL cannot be performed in someone actively anticoagulated or taking antiplatelet agents. He has been instructed to not take any aspirin, aspirin containing compounds, plavix, or other antiplatelet or anticoagulant agents for the 10 days preoperatively. 2)Suspected left renal stones. We reviewed management options, [...] symptoms of stone passage/renal colic should develop. documented in this encounter Plan of Treatment Upcoming Encounters Date Type Department Care Team (Late st Contact Info) Description 11/09/2024 10:30 AM EDT Office Visit Radiation Oncology at [address] [phone] Taya De La Vega PA [facility] [address] HEMAT[place] [address] 11/13/2024 2:00 PM EDT Office Visit Hematology/Oncology at [address] [phone] Kirt Kennedy MD [facility] [address] HEMATOLOGY [place] [address] Alem Lazaro APR[address] HEMATOLOGY AND ONCOLOGY [place], [place] [phone] documented as of this encounter Procedures Procedure Name Priority Date/Time Associated Diagnosis Comments HEMOGRAM Routine 05/24/2023 1:38 PM EDT Nephrolithiasis DIFFERENTIAL, AUTOMATED Routine 05/24/2023 1:38 PM EDT Nephrolithiasis CBC (WITH DIFF) Routine 05/24/2023 1:38 PM EDT Nephrolithiasis BASIC METABOLIC PANEL STAT 05/24/2023 1:38 PM EDT Nephrolithiasis documented in this encounter Results * Differential, Automated (05/24/2023 1:38 PM EDT) Neutrophil % 66.8 % [facility] Neutrophil Absolute 4.67 1.70 - 6.10 x10(3)/[facility] LAB[facility] Lymph % 19.7 % [facility] Lymphocytes Abs 1.4 0.9 - 3.2 x10(3)/[facility] Monocyte % 7.9 % [facility] Monocyte Abs 0.6 0.3 - 0.9 x10(3)/[facility] Eos % 4.6 % [facility] Eosinophils Abs 0.3 0.0 - 0.4 x10(3)/[facility] Basophil % 0.6 % [facility] Baso Absolute 0.0 0.0 - 0.1 x10(3)/[facility] Immature Gran % 0.40 % [facility] Comment: Immature granulocytes(IG's)percentage and absolute count will include metamyelocytes, myelocytes, and promyelocytes. Blood smears from CBCs yielding IG's will be scanned manually for concordance. If this scan disagrees with the automated IG or if promyelocytes are noted, a manual differential will be performed. Immature Gran Absolute 0.03 0.00 - 0.04 x10(3)/[facility] Blood 05/24/2023 1:38 PM EDT 05/24/2023 1:42 PM EDT Narrative Resulting Agency Comment Spec In Lab Adan Navarrete Jr., MD HEMATOLOGY ORDERAB LES [facility] [place] [address] * (ABNORMAL) Hemogram (05/24/2023 1:38 PM EDT) White Blood Cell 7.0 4.0 - 9.5 x10(3)/ L [facility] Red Blood Cell 4.46(L) 4.58 - 5.54 x10(6)/mc L [facility] Hemoglobin 13.4(L) 13.7 - 16.5 g/dL [facility] Hematocrit 41.0 40.5 - 48.5 % [facility] Mean Cell Volume 91.9 82.9 - 93.1 fL [facility] Mean Cell Hemoglobin 30.0 27.5 - 32.1 pg [facility] Mean Cell Hemoglobin Concentration 32.7 32.0 - 35.7 g/dL [facility] Platelet 164 145 - 357 x10(3)/mc L [facility] RDW Standard Deviation 50.8(H) 36.0 - 45.0 fL [facility] RDW coefficient of variation 15.0(H) 11.4 - 13.8 % [facility] Mean Platelet Volume 8.6 7.6 - 12.9 fL [facility] NRBC% auto 0.0 % [facility] NRBC Absolute 0.000 0.000 - 0.000 x10(3)/mc L [facility] Blood 05/24/2023 1:38 PM EDT 05/24/2023 1:42 PM EDT Narrative Resulting Agency Comment Spec In Lab Adan Navarrete Jr., MD HEMATOLOGY ORDERAB LES [facility] [place] [address] * (ABNORMAL) Basic Metabolic Panel (non-fasting) (05/24/2023 1:38 PM EDT) Glucose 118 65 - 199 mg/dL [facility] Comment:Diabetes: >=200 mg/d L plus symptoms Blood Urea Nitrogen 11 10 - 20 mg/dL [facility] Creatinine 0.76(L) 0.80 - 1.50 mg/dL [facility] Sodium 140 135 - 145 mmol/L [facility] Potassium 4.2 3.5 - 5.0 mmol/L [facility] Comment: Please note: ??Patients with WBC >100,000 may have falsely elevated Potassium levels. ??For accurate Potassium quantification in these patients send serum separator tube (gold top) for subsequent determinations. ??Contact the Clinical Chemistry Laboratory if there are any questions. Chloride 105 98 - 107 mmol/L [facility] Carbon Dioxide 25 22 - 31 mmol/L [facility] Anion Gap 10 5 - 15 mmol/L [facility] Calcium 9.2 8.5 - 10.5 mg/dL [facility] Est Glomerular Filtration Rate 93 >=60 mL/min/1. 73 m?? [facility] Comment: This patient's estimated GFR [...] and symptoms in addition to eGFR. Blood 05/24/2023 1:38 PM EDT 05/24/2023 1:42 PM EDT Narrative Resulting Agency Comment Spec In Lab Adan Navarrete Jr., MD CHEMISTRY ORDERABL ES Performing Organization Address City/State/[facility] Co de Phone Number [facility] [place] [address] documented in this encounter Visit Diagnoses Diagnosis Nephrolithiasis Calculus of kidney documented in this encounter Care Teams Flagman Relationship Specialty Start Date End Date Amanda Pino PA [address] [place] [address] PCP - General Internal Medicine 04/28/23 documented as of this encounter
--- OUTSIDE RECORDS SUMMARY | 2024-05-24 19:28 | XMS_ITS | Encounter Summary ---
Author Organization [facility] [place] [address] Care Team Providers Care Garment Looper Name Role Phone Amanda Pino Primary Care Provider [phone] Reason for Visit * Auth/Cert (Routine) Specialty Diagnoses / Procedures Referred By Rogers t Referred To Contact Diagnoses Calculus of kidney >2.5cm right lower pole renal stone Procedures PRO PERQ NL/PL LITHOTRIPSY COMPLEX >2 CM LUBRICATION EQUIPMENT SERVICER LOCATIONS PRO PLMT NEPHROSTOMY CATH PRQ NEW [...] ULTRASOUND, INTRAOP, ABDOMINAL, SINGLE ORGAN (WRVU 0.59) Jonn Gustafson Jr., MD [facility] [place] [address] [facility] Referral ID Status Reason Start Date Expiration Date Visits Re quested Visits Authorized [id number] 1 1 Encounter Details Date Type Department Care Team (Latest Contact Info) Description 08/05/2023 9:41 AM EST - 08/05/2023 5:15 PM [facility] Encounter [place] [address] Jonn Gustafson Jr., MD [facility] [place] [address] Discharge Disposition: Home Social History Tobacco Use [...] Sign Reading Time Taken Comments Blood Pressure 148/64 08/05/2023 4:45 PM EST Pulse 49 08/05/2023 10:33 AM EST Temperature 36.8 ??C (98.2 ??F) 08/05/2023 4:30 PM ES T Respiratory Rate 16 08/05/2023 4:45 PM EST Oxygen Saturation 98% 08/05/2023 4:45 PM EST Inhaled Oxygen Concentration - - Weight 55.9 kg (123 lb 4.8 oz) 08/05/2023 10:33 AM EST Height 177.8 cm (5' 10) 08/05/2023 10:33 AM EST Body Mass Index 17.69 08/05/2023 10:33 AM EST documented in this encounter Discharge Instructions * Patient Instructions* Jasper Abreu MD - 08/05/2023 4:10 PM EST DISCHARGE INSTRUCTIONS CALL YOUR PHYSICIAN IF: You have a fever greater than 101 degrees F within one month of your surgery. You have diarrhea or vomiting for more than 24 hours, or stop having bowel movements or passing gas. You have worsening pain, not controlled with your pain medication. You are unable to urinate due to blood clots in your bladder. You have any other acute change in your health status. MEDICATIONS Take ibuprofen 600 mg every 8 hours as needed. Take acetaminophen (Tylenol) 500-1000 mg every 6 hours as needed. Please continue your prescribed antibiotic DRIVING RESTRICTIONS Do not operate a vehicle if you are too sore from surgery to enter or exit your vehicle comfortably, or if you are too sore to easily check your blind spot. ACTIVITIES No formal restrictions. Your activities may be determined by how well your tolerate the discomfort associated with your stent. Most patients experience some degree of discomfort, and this is normal. Symptoms include flank pain (increased during urination), frequency and urgency of urination, burning or pain in the bladderor urethra with urination, pelvic discomfort, and blood in the urine. To manage your stent symptoms, drink a minimum of 2 L of fluids daily and take acetaminophen or ibuprofen. Use narcotics as prescribed. DIET You may resume a regular diet. COMFORT Some patients experience irritation or discomfort associated with the stent. Take your medication as needed and prescribed. Slowly decrease your use of pain medication as pain lessens. CONTACT INFORMATION To contact your provider or change your appointment, please call the Urology clinic at during business hours or during off-hours. FOLLOW-UP APPOINTMENT Future Appointments and Orders Future Appointments and Orders Future Appointments Provider Department Dept Phone 11/11/2023 10:30 AM Taya De La Vega PA Radiation Oncology at [facility] Arrive at: [facility] door at [address] of [address] [phone] 11/15/2023 2:30 PM Alem Lazaro APRN; Kirt Kennedy MD Hematology/Oncology at [facility] Arrive at: [facility] door at end of [address] [phone] You will have a telehealth visit in 2 weeks to discuss next steps. We will send you the date and time. Please remember that you have a ureteral stent in place. A stent is not a permanent device and mustbe removed as instructed by your urologist; failure to remove a stent may result in [...] Take 80 mg by mouth daily. 10/04/2019 fluconazole (Diflucan) 200 mg tablet Take 2 tablets by mouth daily for 7 days. 14 tablet 08/02/2023 08/09/2023 mirtazapine (Remeron) 15 mg Tablet TAKE ONE-HALF TABLET BY MOUTH AT BEDTIME FOR DEPRESSION/MOOD 09/29/2021 11/11/2023 documented as of this encounter Progress Notes * Sharon Trevino RN - 08/05/2023 4:30 PM EST Pt up to side of bed to void. Pale yellow blood tinged. In NAD at bedside. Given dischare instructions, verbalized understanding * Sharon Trevino RN - 08/05/2023 3:54 PM EST Anethesia stated patient with reddened area on buttocks, unable to see due to nepilex, No redness or bruising noted on Left side documented in this encounter H&P Notes * Jasper Abreu MD - 08/05/2023 11:28 AM EST Patient Name: Narcisa Eduardo Age: 77 y.o. Date of : 1945 Attending Provider: Jonn Gustafson Jr., MD Narcisa Eduardo is a 77 y.o. male with history of bilateral nephrolithiasis and failed URS at OSH, presenting for planned bilateral URS with possible lithotripsy and stent replacement. No recent changesto health status. 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 [facility] Dr Ko PROSTATE BIOPSY 11/23/2019 ALLERGIES Allergies Allergen Reactions Contrast [Iodine And Iodide Containing Products] Hives Depakote [Divalproex] Other (See Comments) Thrombocytopenia and spontaneous bleeding MEDICATIONS No current facility-administered medications on file prior to encounter. Current Outpatient Medications on File Prior to Encounter Medication Sig Dispense Refill potassium chloride ER [...] tablet Take 81 mg by mouth daily. PHYSICAL EXAM Temp: [36.3 ??C (97.3 ??F)] Heart Rate: [49] Resp: [17] BP: (136)/(75) SpO2: [97 %] Heart Rate from SpO2: -- GEN: Resting comfortably in bed, conversant, NAD. CHEST: Normal work of breathing. CV: Sinus rhythm. 2+ pulses bilaterally. ABD: Soft, non-tender, non-distended. EXTR: Moving spontaneously. SKIN: Warm and dry. NEURO: Alert and follows commands. ASSESSMENT / PLAN 77 y.o. male presenting for bilateral URS with LL. Patient appears fit for surgery. The details, [...] Notes * Brief Op Note - Jonn Gustafson Jr., MD - 08/05/2023 3:30 PM EST Brief Operative Note Patient Name: Narcisa Eduardo : [id number] MR#: [id number] Case Date: 08/05/2023 Surgeon: Surgeon(s) and Role: * Jonn Gustafson Jr., MD - Primary * Jasper Abreu MD Preoperative diagnosis: >2.5cm bilateral renal stone Postoperative diagnosis: same Procedure(s) (LRB): MODIFIER HOLMIUM LASER (N/A) CYSTOURETEROSCOPY,DIAGNOSTIC,W/ LITHOTRIPSY INC. INSERTION OF INDWELLING URETERAL STENT (WRVU 8) (Left) CYSTOURETEROSCOPY, DIAGNOSTIC (WRVU 5.75) (Right) CYSTO, STENT PLACEMENT (WRVU 2.82) (Right) Anesthesia: General Findings: bilaterally narrowed ureters. Distal ureteroscopy of right ureter showed no abnormality of distal ureter other than narrowed lumen, but unable to pass semirigid or flexible scope beyond distal ureter. Stent replaced. Left ureteroscopy revealed innumerable small renal stones as well as several larger fragments. Stones fragmented and then fragments extracted. Small amount of small residual fragments identified, largest approx 1 mm. Complications: none evident Intake: Intraprocedure Crystalloid Total None Transfusion No data found in the last 1 encounters. Output: Estimated Blood Loss: 5ml Drains: 8fr 24cm Tria left ureteral stent; 7fr 24cm Tria right ureteral stent Specimens removed during surgery: urine for culture; left renal stones for analysis Disposition: awakened from anesthesia, extubated and taken to the recovery room in a stable condition, having suffered no apparent untoward event. Condition: doing well without problems Attestation: Case Date: 08/05/2023 I was present and I participated during the entire procedure. (Please see the Surgical Encounter Summary for any Implant and Specimen details pertinent to this patient.) * Op Note - Jasper Abreu MD - 08/05/2023 12:40 PM EST [facility] Operative Note Patient Name: Narcisa Eduardo : [id number] MR#: [id number] Case Date: 08/05/2023 Surgeon: Surgeon(s) and Role: * Jonn Gustafson Jr., MD - Primary * Jasper Abreu MD Preoperative diagnosis: >2.5cm bilateral renal stone Postoperative diagnosis: same Procedure(s) (LRB): MODIFIER HOLMIUM LASER (N/A) CYSTOURETEROSCOPY,DIAGNOSTIC,W/ LITHOTRIPSY INC. INSERTION OF INDWELLING URETERAL STENT (WRVU 8) (Left) CYSTOURETEROSCOPY, DIAGNOSTIC (WRVU 5.75) (Right) CYSTO, STENT PLACEMENT (WRVU 2.82) (Right) Anesthesia: General Findings: bilaterally narrowed ureters. Distal ureteroscopy of right ureter showed no abnormality of distal ureter other than narrowed lumen, but unable to pass semirigid or flexible scope beyond distal ureter. Stent replaced. Left ureteroscopy revealed innumerable small renal stones as well as several larger fragments. Stones fragmented and then fragments extracted. Small amount of small residual fragments identified, largest approx 1 mm. Complications: none evident Intake: Intraprocedure Crystalloid Total None Transfusion No data found in the last 1 encounters. Output: Estimated Blood Loss: 5ml Drains: 8fr 24cm Tria left ureteral stent; 7fr 24cm Tria right ureteral stent Specimens removed during surgery: urine for culture; left renal stones for analysis Disposition: awakened from anesthesia, extubated and taken to the recovery room in a stable condition, having suffered no apparent untoward event. Condition: doing well without problems (Please see the Surgical Encounter Summary for any Implant and Specimen details pertinent to this patient.) HPI/Surgical Indications: Narcisa Eduardo is a 77 y.o. male with history of bilateral nephrolithiasis and failed URS at OSH, presenting for planned bilateral URS with possible lithotripsy and stent replacement. No recent changesto health status. Ancef and fluc Procedure Description: The patient was identified in the pre-operative holding area. Consent was verified. The correct side of the procedure was marked. The patient was taken to the operating [...] rigid cystoscope was inserted into the bladder. The existing left ureteral stent was visualized. A stent grasper was inserted and the ureteral stent was removed to the urethral meatus. A glide wire was inserted into the renal pelvis under fluoroscopic guidance via the stent and the stent was removed. A semi-rigid ureteroscope was introduced. The ureter was navigated with some difficulty due to narrowing until the proximal ureter. A second wire was introduced, and the semi-rigid ureteroscope was removed and an 11/13Fr access sheath was introduced under fluoroscopy. Next, a flexible ureteroscope were inserted and navigated to the renal pelvis. Hundreds of stones was visualized in one of the calyces. Holmium laser was used at 8 Hz and 0.8 J for fragmentation of the larger stones. Large fragments were extracted using a N-lamonte basket; these were collected and sent to Pathology as a specimen. Smaller pieces were flushed out with irrigation. Retrograde pyelography was performed to assist in inspecting the entire pyelocaliceal system. No further stones were found. The ureteroscope was slowly removed to inspect the ureter. The access sheath was removed along with the ureteroscope. We elected to leave a stent due. The cystoscope was backloaded over the wire, and a 8 Fr x 24 cm ureteral stent was inserted over the wire. The proximal coilwas visualized on fluoroscopy to be within the renal pelvis, and the distal coil was seen with direct visualization in the bladder. The existing right ureteral stent was visualized. A stent grasper was inserted and the ureteral stent was removed to the urethral meatus. A glide wire was inserted into the renal pelvis under fluoroscopic guidance via the stent and the stent was removed. A semi-rigid ureteroscope was introduced. The ureter was unable to be traversed due to narrowing. The cystoscope was backloaded over the wire, and a 7 Fr x 24 cm ureteral stent was inserted over the [...] the recovery area in stable condition. Dr. Gustafson, the attending surgeon, was present for the entire procedure. Associated attestation - Jonn Gustafson Jr., MD - 08/08/2023 10:56 PM EST Attestation: Case Date: 08/05/2023 I was present and I participated during the entire procedure. JONN GUSTAFSON JR, MD 08/08/2023 documented in this encounter Plan of Treatment Upcoming Encounters Date Type Department Care Team (Late st Contact Info) Description 11/09/2024 10:30 AM EDT Office Visit Radiation Oncology at [address] [phone] Taya De La Vega PA [facility] H[place]AT[place] [address] 11/13/2024 2:00 PM EDT Office Visit Hematology/Oncology at [address] [phone] Kirt Kennedy MD [facility] DR HEMATOLOGY [place] [address] lAem Lazaro APRN [address] [place] [address] DR HEMATOLOGY AND ONCOLOGY [place], [place] [id number] documented as of this encounter Procedures Procedure Name Priority Date/Time Associated Diagnosis Comments XR FLUORO NO RAD <1HR - OR USE Routine 08/05/2023 3:56 PM EST KIDNEY STONE ANALYSIS Routine 08/05/2023 1:47 PM EST URINE CULTURE Routine 08/05/2023 12:45 PM EST Cystoscopy, Insert Ureteral Stent ([id number]) Yes 08/05/2023 12:00 PM EST >2.5cm right lower pole renal stone Cysto W Ureteroscopy &/Or Pyeloscopy, Dx ([id number]) Yes 08/05/2023 12:00 PM EST >2.5cm right lower pole renal stone Cysto/Ureteroscopy W/Lithotripsy Inc Indwelling Stent Insertion ([id number]) Yes 08/05/2023 12:00 PM EST >2.5cm right lower pole renal stone MODIFIER HOLMIUM LASER Yes 08/05/2023 12:00 PM EST >2.5cm right lower pole renal stone TYPE AND SCREEN VALIDITY STAT 08/05/2023 10:11 AM EST ABORH RECHECK STATUS STAT 08/05/2023 10:11 AM EST TYPE AND SCREEN, SDP (FUTURE SURGERY, [facility] SAME DAY PROGRAM ONLY) STAT 08/05/2023 10:11 AM EST ABO/RH TYPING STAT 08/05/2023 10:11 AM EST ANTIBODY SCREEN STAT 08/05/2023 10:11 AM EST documented in this encounter Results * XR Fluoro No Rad <1Hr - OR Use (08/05/2023 3:56 PM EST) Narrative Dicom, Auditing User - 08/05/2023 3:57 PM EST This exam is auto-finalizing. No interpretation was done. Jonn Gustafson Jr., MD IMG FLUORO ORDERAB LES * Kidney Stone Analysis (08/05/2023 1:47 PM EST) Kidney Stone Analysis (MAY) Test ? Result ?Flag ??Unit ??RefValue ------- Kidney Stone Analysis ??Source: ?Left Ureter ??Stone Interpretation ? SEE COMMENTS ?70% Calcium oxalate dihydrate. ??30% Calcium phosphate ?(apatite). ??Result Comment ? SEE COMMENTS ?For stones containing calcium oxalate, calcium phosphate, ?and/or uric acid, a 24 hr urinary supersaturation test may ?help detect underlying risk factors for this type of stone ?formation and provide guidance for a stone prevention ?strategy. ? ---ADDITIONAL INFORMATION------- ?This test was developed and its performance characteristics ?determined by [facility] in a manner consistent with CLIA ?requirements. This test has not been cleared or approved by ?the U.S. Food and Drug Administration. ?Test Performed by: ?[facility] ?[address] [place] [address] ?[employer] Systems Specialist: Russel Clemons M.D. Ph.D.; CLIA# [id number] [facility] Calculus 08/05/2023 1:47 PM EST 08/06/2023 4:59 PM EST Narrative Resulting Agency Comment Spec In Lab Jonn Gustafson Jr., MD LAB SEND OUT ORDER YESSY Performing Organization Address [facility] Co de Phone Number [facility] [place] [address] * (ABNORMAL) Urine culture Cystoscopic Urine (08/05/2023 12:45 PM EST) Urine Culture 1,000-9,000 cfu/ml Keysha parapsilosis One colony of Gram Negative organisms (A) [facility] Organism Keysha parapsilosis(A) [facility] Cystoscopic Urine 08/05/2023 12:45 PM EST 08/05/2023 2:24 PM EST Comment:Bladder Urine for Cu lture and Analysis Narrative Resulting Agency Comment Spec In Lab Jonn Gustafson Jr., MD MICROBIOLOGY - GEN ERAL ORDERABLES Performing Organization Address [facility] Co de Phone Number [facility] [address] * Type and Screen Validity (08/05/2023 10:11 AM EST) T&S only valid at [facility] LABORATORY Comment:This Type and Screen result is only valid at the [facility] Hospital Blood 08/05/2023 10:1 1 AM EST 08/05/2023 10:40 AM EST Narrative Resulting Agency Comment Spec In Lab Jonn Gustafson Jr., MD BLOOD BANK LAB ORD ERABLES Performing Organization Address City/[facility]/ZIP Co de Phone Number [facility] [address] * ABORH Recheck Status (08/05/2023 10:11 AM EST) ABORH Type Recheck Completed [facility] Blood 08/05/2023 10:1 1 AM EST 08/05/2023 10:40 AM EST Narrative Resulting Agency Comment Spec In Lab Jnon Gustafson Jr., MD BLOOD BANK LAB ORD ERABLES Performing Organization Address [facility] Co de Phone Number [facility] [address] * Antibody screen (08/05/2023 10:11 AM EST) Ab Screen Interp Negative [facility] Expires at 2359 on: 08/08/2023 [facility] Blood 08/05/2023 10:1 1 AM EST 08/05/2023 10:40 AM EST Narrative Resulting Agency Comment Spec In Lab Jonn Gustafson Jr., MD BLOOD BANK LAB ORD ERABLES Performing Organization Address City/[facility]/ZIP Co de Phone Number [facility] [address] * ABO/Rh Typing (08/05/2023 10:11 AM EST) ABORH Type A Pos [facility] Blood 08/05/2023 10:1 1 AM EST 08/05/2023 10:40 AM EST Narrative Resulting Agency Comment Spec In Lab Jonn Gustafson Jr., MD BLOOD BANK LAB ORD ERABLES Performing Organization Address City/[facility]/ZIP Co de Phone Number [facility] [address] documented in this encounter Visit Diagnoses Not on filedocumented in this encounter Active and Recently Administered Medications Times are shown in EST. Scheduled Medication Order 08/03/2023 08/04/2023 08/05/2023 acetaminophen (Tylenol) tablet 975 mg 975 mg, Oral, ONCE, 1 dose, On Brisa 08/05/23 at 1145, Maximum dose of acetaminophen is 4,000 mg from all sources in 24 hours. When ordered for pain, acetaminophen should be given even when other ordered pain medications are indicated., Routine 1200 (Not Given - Pr ovider: Enma Oakley RN - Reason: See comment - Comment: Order placed after pre-op check in.) ceFAZolin (Ancef) 2 g vial attach to sodium chloride 0.9% 100 mL Mini-Bag Plus (COMPLETED) 2 g, Intravenous, HOT TAR ROOFER TO O.R., 1 dose, On Brisa 08/05/23 at 1045, Administer over 30 Minutes, Day of Surgery (Day of Procedure), Indication for (Active or Suspected): Prophylaxis 1211 (New Bag - Prov ider: Sandra Chen CRNA) fluconazole (Diflucan) 200 mg in sodium chloride 0.9% 100 mL infusion 200 mg, Intravenous, HOT TAR ROOFER TO O.R., 1 dose, On Wed08/04/23 at 1830, Administer over 60 Minutes, Indication for (Active or Suspected): Prophylaxis, Restricted Antibiotic: Please indicate the most appropriate choice: Pre-approved indication (state the indication in comments field) 1830 (Due) fluconazole (Diflucan) 200 mg in sodium chloride 0.9% 100 mL infusion (COMPLETED) 200 mg, Intravenous, HOT TAR ROOFER TO O.R., 1 dose, On Brisa 08/05/23 at 1145, Administer over 60 Minutes, Indication for (Active or Suspected): Prophylaxis, Restricted Antibiotic: Please indicate the most appropriate choice: Pre-approved indication (state the indication in comments field) 1226 (Given - Provid er: Sandra Chen CRNA) Continuous Medication Order 08/03/2023 08/04/2023 08/05/2023 lactated ringers infusion (CANCELED) 1,000 mL, at 100 mL/hr, Intravenous, CONTINUOUS, Starting on Brisa 08/05/23 at 1145, Until Brisa 08/05/23 at 1655, Day of Surgery (Day of Procedure) 1149 (New Bag - Prov ider: Sandra Chen CRNA)1546 (Anesthesia Volume Adjustment - Provider: Sandra Chen CRNA) PRN Medication Order 08/03/2023 08/04/2023 08/05/2023 iohexoL (Omnipaque) (300 mg/mL) solution (CANCELED) PRN, Starting on Brisa 08/05/23 at 1241, Until Brisa 08/05/23 at 1915, Intra-Operative (Intra-Procedure), Routine 1241 (Given - Provid er: Jonn Gustafson Jr., MD - Comment: Used PRN.OR staff notified prior to injections to watch for reactions.) documented in this encounter Care Teams Garment Looper Relationship Specialty Start Date End Date Amanda Pino PA [address] [place] [address] PCP - General Internal Medicine 04/28/23 documented as of this encounter
--- OUTSIDE RECORDS SUMMARY | 2024-05-24 19:28 | XMS_ITS | Encounter Summary ---
Author Organization [facility] Address [facility] [place] [address] Care Team Providers Care Continuous Process Machine Operator Name Role Phone Amanda Pino Primary Care Provider [phone] Encounter Details Date Type Department Care Team (Late Contact Info) Description 05/06/2023 Ancillary Procedure Radiology Library [place] [phone] Adan Navarrete Jr., MD [facility] [place] [address] Social History Tobacco Use Types Packs/Day Years [...] AM EDT Office Visit Radiation Oncology at [address] [phone] Taya De La Vega PA [facility] HEMATOLOGY [place] [address] 11/13/2024 2:00 PM EDT Office Visit Hematology/Oncology at [address] [phone] Kirt Kennedy MD [facility] DR [place] [address] Alem Lazaro, ADMINISTRATIVE SECRETARY [address] [place] [address] DR HEMATOLOGY AND ONCOLOGY [place], [place] [id number] documented as of this encounter Procedures Procedure Name Priority Date/Time Associated Diagnosis Comments FILM LIBRARY STORAGE ONLY CT CHEST ABDOMEN PELVIS Routine 05/06/2023 12:00 AM EDT documented in this encounter Results * Film Library- Storage Only CT Chest Abdomen Pelvis (05/06/2023 12:00 AM EDT) Narrative [facility] - 09/13/2023 6:13 PM EST This exam is auto-finalizing. It's purpose is for storage only. Adan Navarrete Jr., MD IMG FILM LIBRARY O RDERABLES [place], [place] documented in this encounter Visit Diagnoses Not on filedocumented in this encounter Care Teams Continuous Process Machine Operator Relationship Specialty Start Date End Date Amanda Pino PA [address] [place] [address] PCP - General Internal Medicine 04/28/23 documented as of this encounter
--- OUTSIDE RECORDS SUMMARY | 2024-05-24 19:28 | XMS_ITS | Encounter Summary ---
Author Organization [facility] Address [facility] [place] [address] Care Team Providers Care Cherry Cutter Name Role Phone Alfredo Montoya DO Primary Care Provider [phone] Encounter Details Date Type Department Care Team (Late st Contact Info) Description 04/02/2021 Ancillary Procedure Radiology Library at [facility], [place] [address] [facility] [place] [place] [address] Social History Tobacco Use Types Packs/Day Years [...] EDT Office Visit Radiation Oncology at [address] [phone] [address] De La V[address] PA [facility] HEMATOLOGY [place] [address] 11/13/2024 2:00 PM EDT Office Visit Hematology/Oncology at [address] [phone] [facility] DR HEMATOLOGY [place] [address] Alem Lazaro APRN [address] [place] [address] DR HEMATOLOGY [place] [address] documented as of this encounter Procedures Procedure Name Priority Date/Time Associated Diagnosis Comments FILM LIBRARY STORAGE ONLY CT HEAD Routine 04/02/2021 12:00 AM EDT documented in this encounter Results * Film Library- Storage Only CT Head (04/02/2021 12:00 AM EDT) Narrative FORMER[facility] NAMED [facility] - 05/08/2021 9:07 PM EDT This exam is auto-finalizing. It's purpose is for storage only. Silvia Zapata APRN IMG FILM LIBRARY ORDERABLES Performing Organization Address City/State/[place] Co de Phone Number [place], [place] documented in this encounter Visit Diagnoses Not on filedocumented in this encounter Care Teams Cherry Cutter Relationship Specialty Start Date End Date Alfredo Montoya DO [address] [place] [id number] PCP - General Internal Medicine 12/04/19 04/27/23 documented as of this encounter
--- OUTSIDE RECORDS SUMMARY | 2024-05-24 19:28 | XMS_ITS | Encounter Summary ---
[place] [address] Care Team Providers Care Rn Advanced Name Role Phone Amanda Pino Primary Care Provider [phone] Reason for Referral * Consultation (Routine) - Closed Specialty Diagnoses / Procedures Referred By Contac t Referred To Contact Urology Diagnoses Calculus of kidney Amanda Pino PA [address] [place] [address] [facility] [place] [address] Referral ID Status Reason Start Date Expiration Date V isits Requested Visits Authorized [id number] Closed Consult, Test & Treat PCP Updated and/or Approved 04/23/2023 10/20/[phone] Encounter Details Date Type Department Care Team (Late st Contact Info) Description 04/28/2023 Transcribe Orders eDH Incoming Referrals [phone] Amanda Pino PA [address] [place] [address] Calculus of kidney Social History Tobacco Use Types Packs/Day Years [...] EDT Office Visit Radiation Oncology at [address] [phone] Taya De La Vega PA [facility] [place] [address] 11/13/2024 2:00 PM EDT Office Visit Hematology/Oncology at [address] [phone] Kirt Kennedy MD [facility] [place] [address] Alem Lazaro APRN [address] [place] [address] DR HEMATOLOGY AND ONCOLOGY [place], [place] [phone] Scheduled Referrals Name Type Priority Associated Diagnoses Orde r Schedule Referral to Urology Outpatient Referral Routine Calculus of kidney Ordered: 04/28/2023 documented as of this encounter Visit Diagnoses Diagnosis Calculus of kidney documented in this encounter Care Teams Rn Advanced Relationship Specialty Start Date End Date Amanda Pino PA [address] [place] [address] PCP - General Internal Medicine 04/28/23 documented as of this encounter
--- OUTSIDE RECORDS SUMMARY | 2024-05-24 19:28 | XMS_ITS | Encounter Summary ---
Author Organization [facility] [place] [address] Care Team Providers Care Weigh And Charge Worker Name Role Phone Amanda Pino Primary Care Provider [phone] Reason for Visit * Auth/Cert (Routine) Specialty Diagnoses / Procedures Referred By Rogers t Referred To Contact Diagnoses Calculus of kidney >2.5cm right lower pole renal stone Procedures PRO PERQ NL/PL LITHOTRIPSY COMPLEX >2 CM RAILWAY PATROL OFFICER LOCATIONS PRO PLMT NEPHROSTOMY CATH PRQ NEW [...] ORGAN (WRVU 0.59) Jonn Gustafson Jr., MD [facility] [place] [address] [facility] Referral ID Status Reason Start Date Expiration Date Visits Re quested Visits Authorized [id number] 1 1 Encounter Details Date Type Department Care Team (Late st Contact Info) Description 08/05/2023 11:17 AM EST - 08/05/2023 4:02 PM EST Surgery Main Operating Room [facility] [place] [address] Jonn Gustafson Jr., MD [facility] [place] [address] CYSTOURETEROSCOPY,DIAG NOSTIC,W/ LITHOTRIPSY INC. INSERTION OF INDWELLING URETERAL STENT (WRVU 8) Social History Tobacco Use Types Packs/Day Years [...] Sign Reading Time Taken Comments Blood Pressure 142/68 08/05/2023 3:41 PM EST Pulse 49 08/05/2023 10:33 AM EST Temperature 36.7 ??C (98.1 ??F) 08/05/2023 3:41 PM ES T Respiratory Rate 16 08/05/2023 4:00 PM EST Oxygen Saturation 97% 08/05/2023 10:33 AM EST Inhaled Oxygen Concentration - - [...] Oncology at [facility] Arrive at: [facility] door at end of hallway [phone] 11/15/2023 2:30 PM Alem Lazaro APRN; Kirt Kennedy MD Hematology/Oncology at [facility] Arrive at: [facility] door at end of hallway [phone] You will have a telehealth visit in [...] of this encounter Progress Notes * Sharon Treivno RN - 08/05/2023 4:30 PM EST Pt [...] Date COLONOSCOPY 2011 date is approximate. at [facility] Dr Ko PROSTATE BIOPSY 11/23/2019 ALLERGIES Allergies [...] Operative Note Patient Name: Narcisa Eduardo : [id number] MR#: [id number] Case Date: 08/05/2023 Surgeon: Surgeon(s) and Role: [...] Abreu MD - 08/05/2023 12:40 PM EST [facility] Patient Name: Narcisa Eduardo : [id number] MR#: [id number] Case Date: 08/05/2023 Surgeon: Surgeon(s) and Role: [...] EDT Office Visit Radiation Oncology at [address] [phone] Taya De La Vega PA [facility] DR HEMATOLOGY [place] [address] 11/13/2024 2:00 PM EDT Office Visit Hematology/Oncology at [address] [place] [phone] Kirt Kennedy MD [facility] DR HEMATOLOGY [place] [address] Alem Lazaro, [facility] [address] [place] [address] DR HEMATOLOGY AND ONCOLOGY [place], [place] [address] documented as of this encounter Procedures Procedure Name Priority Date/Time Associated Diagnosis Comments XR FLUORO NO RAD <1HR - OR USE Routine 08/05/2023 3:56 PM EST KIDNEY STONE ANALYSIS Routine 08/05/2023 1:47 PM EST URINE CULTURE Routine 08/05/2023 12:45 PM EST Cystoscopy, Insert Ureteral Stent (02419) Yes 08/05/2023 12:00 PM EST >2.5cm right lower pole renal stone Cysto W Ureteroscopy &/Or Pyeloscopy, Dx ([id number]) Yes 08/05/2023 12:00 PM EST >2.5cm right lower pole renal stone Cysto/Ureteroscopy W/Lithotripsy Inc Indwelling Stent Insertion ([id number]) Yes 08/05/2023 12:00 PM EST >2.5cm right lower pole renal stone MODIFIER HOLMIUM LASER Yes 08/05/2023 12:00 PM EST >2.5cm right lower pole renal stone TYPE AND SCREEN VALIDITY STAT 08/05/2023 10:11 AM EST ABORH RECHECK STATUS STAT 08/05/2023 10:11 AM EST TYPE AND SCREEN, SDP (FUTURE SURGERY, [facility] SAME [place] ONLY) STAT 08/05/2023 10:11 [...] and its performance characteristics ?determined by [facility] in a manner consistent with CLIA ?requirements. This test has not been cleared or approved by ?the U.S. Food and Drug Administration. ?Test Performed by: ?[facility] ?[address] [place] [address] ?Ship Mate: Russel Clemons M.D. Ph.D.; CLIA# [id number] [facility] Calculus 08/05/2023 1:47 PM EST 08/06/2023 4:59 PM EST Narrative Resulting Agency Comment Spec In Lab Jonn Gustafson Jr., MD LAB SEND OUT ORDER YESSY Performing Organization Address [facility] Co de Phone Number [facility] [place] [address] * (ABNORMAL) Urine culture Cystoscopic Urine (08/05/2023 12:45 PM EST) [facility] Urine Culture 1,000-9,000 cfu/ml Keysha parapsilosis One colony of Gram Negative organisms (A) [facility] Organism Keysha parapsilosis(A) [facility] Cystoscopic Urine 08/05/2023 12:45 PM EST 08/05/2023 2:24 PM EST Comment:Bladder Urine for Cu lture and Analysis Narrative Resulting Agency Comment Spec In Lab Jonn Gustafson Jr., MD MICROBIOLOGY - GEN ERAL ORDERABLES Performing Organization Address [facility] [place] [address] * Type and Screen Validity (08/05/2023 10:11 AM EST) Pathologist [facility] T&S only valid at Critical access hospital LABORATORY Comment:This Type and Screen result is only valid at the [facility] Blood 08/05/2023 10:1 1 AM EST 08/05/2023 10:40 AM EST Narrative Resulting Agency Comment Spec In Lab Jonn Gustafson Jr., MD BLOOD BANK LAB ORD ERABLES Performing Organization Address City/[facility]/ZIP Co de Phone Number [facility] [place] [address] * ABORH Recheck Status (08/05/2023 10:11 AM EST) ABORH Type Recheck Completed [facility] Blood 08/05/2023 10:1 1 AM EST 08/05/2023 10:40 AM EST Narrative Resulting Agency Comment Spec In Lab Jonn Gustafson Jr., MD BLOOD BANK LAB ORD ERABLES Performing Organization Address [facility] Co de Phone Number [facility] [place] [address] * Antibody screen (08/05/2023 10:11 AM EST) Ab Screen Interp Negative [facility] Expires at 2359 on: 08/08/2023 [facility] Blood 08/05/2023 10:1 1 AM EST 08/05/2023 10:40 AM EST Narrative Resulting Agency Comment Spec In Lab Jonn Gustafson Jr., MD BLOOD BANK LAB ORD ERABLES Performing Organization Address City/[facility] Co de Phone Number [facility] [place] [address] * ABO/Rh Typing (08/05/2023 10:11 AM EST) ABORH Type A Pos [facility] Blood 08/05/2023 10:1 1 AM EST 08/05/2023 10:40 AM EST Narrative Resulting Agency Comment Spec In Lab Jonn Gustafson Jr., MD BLOOD BANK LAB ORD ERABLES [facility] [place] [address] documented in this encounter Visit Diagnoses Not on filedocumented in this encounter Administered Medications Inactive Administered Medications - up to 3 most recent administrations Medication Order MAR Action Action Date Dose Rate Site iohexoL (Omnipaque) (300 mg/mL) solution PRN, Starting on Brisa 08/05/23 at 1241, Until Brisa 08/05/23 at 1915, Intra-Operative (Intra-Procedure), Routine Given 08/05/2023 12:41 PM EST 50 mLs 19- Surgical Site documented in this encounter Active and Recently [...] mL Mini-Bag Plus (COMPLETED) 2 g, Intravenous, PLASTIC PRINTER TO O.R., 1 dose, On Brisa 08/05/23 at 1045, Administer over 30 Minutes, Day of Surgery (Day of Procedure), Indication for (Active or Suspected): Prophylaxis 1211 (New Bag - Prov ider: Sandra Chen CRNA) fluconazole (Diflucan) 200 mg in sodium chloride 0.9% 100 mL infusion 200 mg, Intravenous, PLASTIC PRINTER TO O.R., 1 dose, On Wed08/04/23 at 1830, Administer over 60 Minutes, Indication for (Active or Suspected): Prophylaxis, Restricted Antibiotic: Please indicate the most appropriate choice: Pre-approved indication (state the indication in comments field) 1830 (Due) fluconazole (Diflucan) 200 mg in sodium chloride 0.9% 100 mL infusion (COMPLETED) 200 mg, Intravenous, PLASTIC PRINTER TO O.R., 1 dose, On Brisa 08/05/23 [...] reactions.) documented in this encounter Care Teams Weigh And Charge Worker Relationship Specialty Start Date End Date Amanda Pino PA [address] [place] [address] PCP - General Internal Medicine 04/28/23 documented as of this encounter
--- OUTSIDE RECORDS SUMMARY | 2024-05-24 19:28 | XMS_ITS | Encounter Summary ---
Author Organization [facility] Address [facility] [place] [address] Care Team Providers Care Press Room Supervisor Name Role Phone Jan Alfredo Patel DO Primary Care Provider [phone] Encounter Details Date Type Department Care Team (Late st Contact Info) Description 05/13/2021 Telephone Neurosurgery at [facility] [place] [phone] Silvia Zapata APRN [facility] [place] [address] Social History Tobacco Use Types Packs/Day Years [...] * Telephone Encounter - Sangeeta Pino - 06/24/2021 10:27 AM EDT Called pt, spoke to Mrs. Eduardo, [facility] she is going to call [facility] to schedule CTH and f/u with Dr. Ramires who is now back. I transferred her to Neuro to cancel Dr. Astudillo's appt and provided her with HIS release of info # Pt wishes not to f/u with NS in [place] he will f/u locally with Keyla * Telephone Encounter - Sangeeta Pino - 06/12/2021 9:[address] [facility] last CTH done 04/02 for [facility] re: status of scheduling CTH at [facility] * Telephone Encounter - Sangeeta Pino - 06/04/2021 2:[address] order and BCB ov note to [facility] [phone] at [facility] * Telephone Encounter - Sangeeta Pino - 05/16/2021 12:05 PM EDT Faxed [facility] to request new referral so CT may be scheduled=05/16 * Telephone Encounter - Sangeeta Pino - 05/13/2021 2:51 PM EDT Called =LM at [facility] to update referral for NS, end of February Faxed CT order to [facility] to schedule in 3 weeks. BCB to review. * Telephone Encounter - Silvia Zapata APRN - 05/13/2021 9:02 AM EDT I called Mr. Eduardo today to review follow up head CT from 04/02/21. He denies headaches. He continues to report some instances of dizziness with head movements. He denies falls. Ambulating with walker. He continues to take daily 81 mg aspirin. Discussed small persistent left subdural, isodense subdural collection slightly decreased in size compared to 7/23/21 scan and larger left frontal hygroma. Recommend a follow up scan in next 3-4 weeks to be done in [place]. Mr Jayce or his will call if he has any falls, worsening headache or neurologic deficits in meantime. documented in this encounter Plan of Treatment Upcoming Encounters Date Type Department Care Team (Late st Contact Info) Description 11/09/2024 10:30 AM EDT Office Visit Radiation Oncology at [address] [phone] Taya De La Vega PA [facility] DR [place] [address] 11/13/2024 2:00 PM EDT Office Visit Hematology/Oncology at [address] [phone] Kirt Kennedy MD [facility] DR [place] [address] Alem Lazaro APRN [address] [place] [address] DR HEMATOLOGY AND ONCOLOGY [place], [place] [phone] documented as of this encounter Visit Diagnoses Diagnosis SDH (subdural hematoma) Subdural hemorrhage documented in this encounter Care Teams Press Room Supervisor Relationship Specialty Start Date End Date Alfredo Montoya DO [address] [place] [address] PCP - General Internal Medicine 12/04/19 04/27/23 documented as of this encounter
--- OUTSIDE RECORDS SUMMARY | 2024-05-24 19:28 | XMS_ITS | Encounter Summary ---
Author Organization [facility] Address [facility] [address] Care Team Providers Care Tanker Driver Name Role Phone Alfredo Montoya DO Primary Care Provider [phone] Reason for Referral * Diagnostic Test (Routine) - Closed Specialty Diagnoses / Procedures Referred By Contac t Referred To Contact Radiology Diagnoses Intracranial bleed Procedures CT Head wo Contrast (Generic) Linnea Muhammad PA [facility] [place] [address] [facility] [place] [address] Referral ID Status Reason Start Date Expiration Date V isits Requested Visits Authorized [id number] Closed Specialty Service Requested 09/18/2020 03/17/2021 1 1 Reason for Visit * Diagnostic Test (Routine) - Closed Specialty Diagnoses / Procedures Referred By Contac t Referred To Contact Radiology Diagnoses Intracranial bleed Procedures CT Head wo Contrast (Generic) Linnea Muhammad PA [facility] [place] [address] [facility] [place] [address] Referral ID Status Reason Start Date Expiration Date V isits Requested Visits Authorized [id number] Closed Specialty Service Requested 09/18/2020 03/17/2021 1 1 Encounter Details Date Type Department Care Team (Latest Contact Info) Description 03/14/2021 9:04 AM EDT - 03/14/2021 11:59 PM EDT Hospital Encounter CT Scan at [facility] [place] [address] Damian Vazquez MD [facility] [place] [id number] Intracranial bleed Discharge Disposition: Home Social History Tobacco Use [...] Sig Dispensed Refills Start Date End Date cholecalciferol, Vitamin D3, (Vitamin D3) 1,000 unit [...] Take 80 mg by mouth daily. 10/04/2019 acetaminophen (Tylenol) 325 mg Tablet Take 3 tablets by mouth every 6 hours. 30 tablet 1 02/26/2021 05/01/2021 buPROPion (Wellbutrin) 75 mg Tablet Take 1 tablet by mouth every evening. 30 tablet 02/26/2021 05/01/2021 multivit with minerals/lutein (MULTIVITAMIN 50 PLUS ORAL) Take by mouth. 09/29/2019 04/23/2022 aspirin EC 81 mg Tablet, Delayed Release (E.C.) TAKE ONE TABLET BY MOUTH EVERY DAY TO PREVENT STROKE/HEART ATTACK OR FOR PAIN/SWELLING/INFLAMMA TION 10/04/2019 04/23/2022 folic acid (Folvite) 1 mg Tablet TAKE ONE TABLET BY MOUTH EVERY DAY VITAMIN/NUTRITION SUPPLEMENT 10/24/2020 04/23/2022 valproate (Depakene) 250 mg/5 mL Solution TAKE ONE TABLESPOONFUL BY MOUTH EVERY TWELVE HOURS 09/07/2020 05/01/2021 potassium chloride ER (K-Dur/Klor-Con) 10 mEq Tablet Sustained Release TAKE ONE TABLET BY MOUTH EVERY DAY TO SUPPLEMENT POTASSIUM 06/27/2020 04/23/2022 lisinopriL (Prinivil;Zestril) 10 mg Tablet Take 10 mg by mouth daily. 09/29/2019 05/01/2021 documented as of this encounter Plan of Treatment Upcoming Encounters Date Type Department Care Team (Late st Contact Info) Description 11/09/2024 10:30 AM EDT Office Visit Radiation Oncology at [address] [phone] Taya De La Vega PA [facility] [place] [address] 11/13/2024 2:00 PM EDT Office Visit Hematology/Oncology at [address] [phone] Kirt Kennedy MD [facility] DR [place] [address] Alem Lazaro APRN [address] [place] [address] DR HEMATOLOGY AND ONCOLOGY [place], [place] [phone] documented as of this encounter Procedures Procedure Name Priority Date/Time Associated Diagnosis Comments CT HEAD WO CONTRAST (GENERIC) Routine 03/14/2021 9:48 AM EDT Intracranial bleed documented in this encounter Results * CT Head wo Contrast (Generic) (03/14/2021 9:48 AM EDT) Anatomical Region Laterality Modality Head Computed Tomogra phy 03/14/2021 10:0 1 AM EDT Impressions 03/14/2021 11:50 AM EDT 1. Unchanged left subdural hygroma with similar fashion [id number] midline shift compared to prior CT. 2. Expected evolution of left-sided subarachnoid hemorrhage and intraventricular/septum pellucidum hemorrhage 3. 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 4. No acute hemorrhage I have personally reviewed the image(s) and the resident's interpretation and agree with the findings, Jeffrey Sultana MD at 03/14/2021 11:50 AM Thank you for letting us participate in the care of this patient. ??If you are a health care provider and have any questions regarding this report, please contact the number below. ??For patients who have questions please contact the health child care aide that requested your imaging first. ? Narrative 03/14/2021 11:50 AM EDT EXAMINATION: CT HEAD WO CONTRAST (GENERIC) CLINICAL HISTORY: 75-year-old male with Subarachnoid hemorrhage (SAH) suspected follow-up tSAH, parafalcine SDH TECHNIQUE: CT head performed without intravenous contrast administration. COMPARISON: Multiple CT head dating as far back as 02/18/2021 FINDINGS: Unchanged left convexity subdural hygroma with associated frontal and parietal sulcal effacement. Is similar in size. Changed rightward midline shift similar to prior CT 02/26/2021. No other evidence of mass effect. Interval resolution of hyperdense signal along the anterior right septum pellucidum and the left posterior sulci consistent with expected evolution of hemorrhage. Encephalomalacia of the right frontal lobe is unchanged. Unchanged diffuse cortical atrophy with associated ex vacuo ventricular dilatation and widening of the sylvian fissure. No new area of hemorrhage or mass. No new areas of mahoney-white matter signal abnormality. Periventricular and pontine hypodensity likely representing chronic ischemic changes secondary to small vessel disease. Calvarium and cranial soft tissues are unremarkable. Slight mucosal thickening in the bilateral maxillary sinus with associated cortical thickening consistent with chronic sinus disease. The mastoid air cells are clear. There is cerumen impaction in the right external auditory canal. Procedure Note Jeffrey Sulatna MD - 03/14/2021 EXAMINATION: CT HEAD WO CONTRAST (GENERIC) CLINICAL HISTORY: 75-year-old male with Subarachnoid hemorrhage (SAH)suspected follow-up tSAH, parafalcine SDH TECHNIQUE: CT head performed without intravenous contrast administration. COMPARISON: Multiple CT head dating as far back as 02/18/2021 FINDINGS: Unchanged left convexity subdural hygroma with associated frontal andparietal sulcal effacement. Is similar in size. Changed rightward midline shiftsimilar to prior CT 02/26/2021. No other evidence of mass effect. Interval resolution of hyperdense signal along the anterior right septum pellucidum and the left posterior sulci consistent with expected evolutionof hemorrhage. Encephalomalacia of the right frontal lobe is unchanged. Unchangeddiffuse cortical atrophy with associated ex vacuo ventricular dilatation andwidening of the sylvian fissure. No new area of hemorrhage or mass. No new areas of mahoney-white mattersignal abnormality. Periventricular and pontine hypodensity likely representingchronic ischemic changes secondary to small vessel disease. Calvarium and cranial soft tissues are unremarkable. Slight mucosalthickening in the bilateral maxillary sinus with associated cortical thickeningconsistent with chronic sinus disease. The mastoid air cells are clear. There iscerumen impaction in the right external auditory canal. IMPRESSION 1. Unchanged left subdural hygroma with similar fashion [id number] shift compared to prior CT. 2. Expected evolution of left-sided subarachnoid hemorrhage and intraventricular/septum pellucidum hemorrhage 3. 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 4. No acute hemorrhage I have personally reviewed the image(s) and the resident's interpretationand agree with the findings, Jeffrey Sultana MD at 03/14/2021 11:50 AM Thank you for letting us participate in the care of this patient. If youare a health care provider and have any questions regarding this report,please contact the number below. For patients who have questions please contactthe health child care aide that requested your imaging first. Damian Vazquez MD IMG CT ORDERABLES documented in this encounter Visit Diagnoses Diagnosis Intracranial bleed Unspecified intracranial hemorrhage documented in this encounter Care Teams Tanker Driver Relationship Specialty Start Date End Date Alfredo Montoya DO [address] [place] [id number] PCP - General Internal Medicine 12/04/19 04/27/23 documented as of this encounter
--- OUTSIDE RECORDS SUMMARY | 2024-05-24 19:28 | XMS_ITS | Encounter Summary ---
Author Organization [facility] [place] [address] Care Team Providers Care Extension Professor Name Role Phone Alfredo Montoya DO Primary Care Provider [phone] Encounter Details Date Type Department Care Team (Latest Contact Info) Description 04/23/2022 11:00 AM EDT TH Visit (TeleHealth) Radiation Oncology at [address] [phone] Jen Eugene, MEDICAL ACCOUNTANT [facility] [place] [address] Malignant neoplasm of prostate (Primary Dx) Social [...] as of this encounter Progress Notes * Jen Eugene, CHOLO - 04/23/2022 11:00 AM EDTSummary: 76 year old M dx Unfavorable Intermediate-Risk Prostate Cancer. Compl xrt 04/26/20 [facility] [place] [address] Phone: RADIATION ONCOLOGY FOLLOW UP NOTE Date of visit: 04/22/2022 Patient Narcisa Eduardo 1945 PCP: Alfredo Montoya DO Urologist: Charleen Torres MD//also went to [facility] Urology Radiation oncologist: Dr Que Evans Chief Complaint: follow up/labs/for prostate cancer Time since completed RT: 04/26/20 ADT:He declined ADT. Current treatment:Surveillance HPI: Narcisa Eduardo??is a 74 y.o.??male??diagnosed with an unfavorable intermediate- risk prostate cancer. ?? Presenting Symptoms / Duration:?? ePSA; per pt he has had ERIKA in past that did not show any nodules ?? Prior consultations / recommendations: Dr Thomas - [facility] - 12/01/19 - options of , RP, RT reviewed. Patient interested in learning more about RT. Referral placed.? PSA History:?? 11/03/19 - 12.9 ?? Pathology Results / Location:?? TRUS Bx 11/23/19 ([facility]) - ?Gl 4+3 x 1 - Left [...] off list in review today. Last November pt and describe urosepsis admission to [facility]. Since recovering he has been successful in keeping the catheter out and voids on his own. He still does wake up at [facility] to void x 2-3x and MD at [facility] took him off the prazosin (for PTSD nightmares) so he could increase the tamsulosin totwo pills a day to improve urination and [...] after that he will sleep through the [facility]. Narcisa agrees with this assessment. No hematuria, has had chronic UTIs. Does not hydrate well per . Unfortunately, he has had episodes of urosepsis and these have led to seizure activity and need for ambulance ride to local hospital. This ends up being to [facility]. They would favor going to [facility] but the ambulance must deliver himto nearest [...] ??? COLONOSCOPY 2011 date is approximate. at [facility] Dr Ko ??? PROSTATE BIOPSY 11/23/2019 Medications 11/04/21 1347 Medication Sig Taking? mirtazapine (Remeron) 15 mg Tablet TAKE ONE-HALF TABLET BY MOUTH AT BEDTIME FOR DEPRESSION/MOOD prazosin (Minipress) 1 mg Capsule TAKE ONE CAPSULE BY MOUTH AT BEDTIME cholecalciferol, Vitamin D3, (Vitamin D3) 1,000 unit [...] ??? COLONOSCOPY 2011 date is approximate. at [facility] Dr Ko ??? PROSTATE BIOPSY [...] reviewed the IPSS/RISHABH/Epic-Cp survey results from today. Not assigned as TOV. Pt does not use myDH. See above interval hx. Patient concerns for today's visit: General: Stable and no UTIs since this last November. Does not have catheter in place now and urinating independently. Fatigue:He does have fatigue but as his pointed out, he has had repeated health issues which keep setting him back. Wt and appetite: 152 lbs at home. He gained back some wt he had lost during various infections and health challenges. Respiratory:no infectious sx, no chronic cough, no viral cold sx, wheezing . He does have an occaiss smokers cough which I hear over phone today. Smokes 1-1.25 ppd now. Not interested in quitting. GI:appetite less than usual. says when he does get hungry and will eat a whole plate of food. :no catheter now and able to void. Discussed Kegels, no hematuria, no pain or burning with urination. Hx urosepsis and repeated UTIs. Sexual health:endorses more function than he may [...] head on pavement. 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 Follows with [facility] neurology no longer on ASA. Mood: Usually [...] least , had stroke 2016 and stopped drinking. Support/ social relationships: is [...] were no vitals taken for this visit. Mood and Affect: Mood normal. Behavior: Behavior normal. Thought Content: Thought content normal. Judgment: Judgment normal. New Labs Reviewed this visit: Date PSA Test Notes 04/15/22 0.23 375 10/15/21 0.30 252 04/17/21 0.64 10/24/2020 1.4 309 07/16/2021 3.1 399 Pretreatment PSA 12.9 ? Assessment: Mr aNrcisa Eduardo is a??76 y.o.M?diagnosed with an unfavorable intermediate- risk prostate cancer (cT1c, Gl 4+3, PSA 12.9).?He declined ADT. Compl xrt 04/26/20. PSA continues to trend downward. 0.23today in setting normal testosterone. Still has fatigue but has had follicular lymphoma, brain aneurysm and cranial bleed, urosepsis and multiple other [facility] that reflects keep setting him back. His motivation is low. Had urosepsis in Jun 2021 and the last episode was in November 2021 in-pt tx at [facility]. Cath removed and he is able to void on his own now. Still some leakage. We reviewed Kegel exercises with patient and his . We will monitor at the time of his next visit. Hydration with water was encouraged given hx UTI .Walking/exercise and prunes encouraged w/ hydration for his constipation. He does use pericolace and lactobaccillus. There is hesitancy with urination but no pain, no hematuria. R/T brain aneurysm and cranial bleed He was treated for this in [place]. He has a neurologist locally at [facility]. No new focal deficits but memory can sometimes be an issue. His next prostate cancer followup will be in six months with PSA and testosterone prior to visit. He and live near [facility] and are happy to come for f2f. [...] factors. Next visit:6 months Labs: PSA, testosterone Narcisa Eduardo had the opportunity to ask questions and I answered them to the best of my knowledge. Narcisa Eduardo agreed to contact radiation oncology in between visits if he has any questions/concernsor new symptoms in regards to the radiation therapy/prostate cancer Jen Eugene MSN, MEDICAL ACCOUNTANT, PROCESS ARTIST-C Nurse Practitioner Radiation Oncology documented in this encounter Plan of Treatment Upcoming Encounters Date Type Department Care Team (Late st Contact Info) Description 11/09/2024 10:30 AM EDT Office Visit Radiation Oncology at [address] [phone] Taya De La Vega PA [facility] DR [place] [address] 11/13/2024 2:00 PM EDT Office Visit Hematology/Oncology at [address] [phone] Kirt Kennedy MD [facility] DR [place] [address] Alem Lazaro APRN [address] [place] [address] DR HEMATOLOGY AND ONCOLOGY [place], [place] [phone] documented as of this encounter Visit Diagnoses Diagnosis Malignant neoplasm of prostate- Primary documented in this encounter Care Teams Extension Professor Relationship Specialty Start Date End Date Alfredo Montoya DO [address] [place] [id number] PCP - General Internal Medicine 12/04/19 04/27/23 documented as of this encounter
--- OUTSIDE RECORDS SUMMARY | 2024-05-24 19:28 | XMS_ITS | Encounter Summary ---
Author Organization [facility] Address [facility] [place] [address] Care Team Providers Care Podiatry Teacher Name Role Phone Alfredo Montoya DO Primary Care Provider [phone] Reason for Referral * Consultation (Routine) - Closed Specialty Diagnoses / Procedures Referred By Contac t Referred To Contact Wound Care Diagnoses Open wound of right hand without foreign body, unspecified wound type, subsequent encounter Kristi Carey APRN [facility] [place] [address] [facility] [place] [address] Referral ID Status Reason Start Date Expiration Date V isits Requested Visits Authorized [id number] Closed Consult, Test & Treat 03/14/2021 03/14/2022 1 1 Reason for Visit * Reason Comments Follow-up Encounter Details Date Type Department Care Team (Late st Contact Info) Description 03/14/2021 8:30 AM EDT Office [place] [address] Kristi Carey APRN [facility] [place] [address] Open wound of right hand without foreign body, unspecified wound type, subsequent encounter Social History Tobacco Use Types Packs/Day [...] as of this encounter Progress Notes * CherryKristi Mary Kay, DRUG SAFETY DATA MANAGEMENT SPECIALIST - 03/14/2021 8:30 AM EDT Narcisa Eduardo presents today for hospital check. Narcisa is s/p fall from standing on 02/18/21 with thefollowing injuries identified: BRAIN: 1.??tSAH 2. parafalcine SDH 3. LEFT subdural hygroma FACE: 4. Left soft tissue hematoma ?? HAND 5. L hand skin tear (dorsal aspect)?? -followed by wound care inpt who recommended FU in wound clinic Since discharge, Narcisa reports he has been doing well. He denies any new area of pain, or new complaint. He is eating, moving his bowels and voiding without difficulty. He is accompanied by is to this appt. He has a giraldo in place, he has FU in place with Dr Torres' the pt's urologist on 03/21/21 per [facility] notes. His giraldo was kept in place at the direction of Dr Torres. Pt was treated for klebsiella UTI during admission and was also treated with a course of vancomycinas he has a history of c diff. Pt reports he has [facility]. Review of Systems: GENERAL:denies fevers chills, anorexia HEENT:Denies headaches, visual changes, difficulty swallowing RESPIRATORY:Denies shortness of breath, cough CARDIAC:Denies chest pain, dyspnea on exertion, or syncopal symptoms GASTROINTESTINAL: Denies abdominal pain, nausea, vomiting, constipation, diarrhea, change in bowel habits, or jaundice GENITOURINARY:Denies dysuria, hematuria, flank pain VASCULAR:denies swelling or redness in the extremities EXAM: GEN:Well appearing, calm of affect NAD SKIN:Intact, no new areas of ecchymosis or laceration, no jaundice HEENT:sclera clear non icteric, mucous membranes are pink and moist, resolving ecchymosis left face CARD:S1S2 rrr no cmr appreciated CHEST:Cage stable, excursion equal, respiration regular even and non labored, CTA ant/post. ABD:soft non tender, non distended, I can appreciate no areas of fullness. BACK:non tender over midline thoracic lumbar and sacral regions, negative CVAT VASC:2+palpable peripheral pulses, cap refill <2 sec, no edema, calves are soft and non tender NEURO:Narcisa is AAOX3, fluent and non focal, appropriately conversant EXT:5/5 strengths, all four extremities. Left Hand:wound is clean, there are two <0.5 punctate areas or light scabbing. There is no erythema, no fluctuance, the area is non tender. I cleaned the area and placed adaptic to the area covered with mepilex, and secured with Kerlix gauze. IMPRESSION/PLAN: Per epic notes wound care recommended follow with wound clinic-I have placed this referral. Wound appears clean, to be healing and without infection. Urology FU in place At this time, no further general surgery FU is indicate, however we are happy to see him back should anything specific arise or should there be any question or concern. documented in this encounter Plan of Treatment Upcoming Encounters Date Type Department Care Team (Late st Contact Info) Description 11/09/2024 10:30 AM EDT Office Visit Radiation Oncology at [address] [phone] Taya De La Vega PA [facility] DR HEMATOLOGY [place] [address] 11/13/2024 2:00 PM EDT Office Visit Hematology/Oncology at [address] [phone] Kirt Kennedy MD [facility] DR HEMATOLOGY [place] [address] Alem Lazaro APRN [address] [place] [address] DR HEMATOLOGY AND ONCOLOGY [place], [place] [phone] Scheduled Referrals Name Type Priority Associated Diagnoses Orde r Schedule Referral to Wound Clinic Outpatient Referral Routine Open wound of right hand without foreign body, unspecified wound type, subsequent encounter Ordered: 03/14/2021 documented as of this encounter Visit Diagnoses Diagnosis Open wound of right hand without foreign body, unspecified wound type, subsequent encounter documented in this encounter Care Teams Podiatry Teacher Relationship Specialty Start Date End Date Alfredo Montoya DO [address] [place] [id number] PCP - General Internal Medicine 12/04/19 04/27/23 documented as of this encounter
--- OUTSIDE RECORDS SUMMARY | 2024-05-24 19:28 | XMS_ITS | Encounter Summary ---
Author Organization [facility] Address [facility] [place] [address] Care Team Providers Care Wood Pattern Maker Name Role Phone Alfredo Montoya DO Primary Care Provider [phone] Encounter Details Date Type Department Care Team (Late st Contact Info) Description 11/16/2022 3:00 PM EDT Office Visit Hematology/Oncology at [address] [phone] Kirt Kennedy MD [facility] DR HEMATOLOGY [place] [address] Alem Lazaro APRN [address] [place] [address] DR HEMATOLOGY [place] [address] Follicular lymphoma, unspecified grade, unspecified body region; Malignant neoplasm of prostate Social History Tobacco [...] Sign Reading Time Taken Comments Blood Pressure 124/65 11/16/2022 2:58 PM EDT Pulse 89 11/16/2022 2:58 PM EDT Temperature 36.2 ??C (97.1 ??F) 11/16/2022 2:58 PM ED T Respiratory Rate 18 11/16/2022 2:58 PM EDT Oxygen Saturation 99% 11/16/2022 2:58 PM EDT Inhaled Oxygen Concentration - - Weight 66.5 kg (146 lb 9.6 oz) 11/16/2022 2:58 P M EDT Height 177.8 cm (5' 10) 11/16/2022 2:58 PM EDT Body Mass Index 21.03 11/16/2022 2:58 PM EDT documented in this encounter Progress Notes * Kirt Kennedy MD - 11/16/2022 3:00 PM EDT Images from the original note were not included[place] [address] [phone] Narcisa Eduardo is being seen for the evaluation of follicular lymphoma. Assessment & Plan: Narcisa Eduardo is a 77 y.o. male patient with a PMH of an abdominal aortic aneurysm, thoracic aortic aneurysm, hypertension, prior alcohol abuse, tobacco abuse, a stroke in early 2019 and follicular lymphoma who completed EBRT for localized prostate cancer 04/2020 who wishes to followup here in [facility] for his lymphoma rather than at the [place] given the proximity to his home. He was last treated for his follicular lymphoma back in 2015 as detailed below. We discussed the fact that it is unlikely that he is cured but that he does appear to be in continued remission. His recent labs are reviewed and unremarkable. His [...] would still be available he can consider. Discussed that I would follow him typically with labs and annual clinic visits. Would not pursue imaging at this time unless there was a clinical change. Discussed that [facility] does [facility] his care to certain extent whichis not ideal. He reiterated that he'd prefer to continue follow with me for now. Plan: - Labs CBC/CMP/LDH locally with followup in 1 year Kirt Kennedy MD, MS 11/16/2022 Thoracic Oncology [facility] CC: Alfredo Montoya, Jen Jabier MATERIAL ASSISTANT HPI/Interval History/Subjective: Last seen November 2021 Accompanied by his . No unexpected weight loss. Chronically low energy. 1 smoking ppd-not interested quitted. No fever or infection over the past Not drinking. No lumps or bumps or adenopathy that he has noted. No nocturia uses depends at night. Doesn't urinate much during the day and wifethink he doesn't hydrate enough. 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 10/24 ppd. X30-40 years Alcohol use: Stopped drinking in 09/2019 after a stroke when he was placed on Plavix Drug use: None Loves gardening but can't do it any more. service: [employer]. [place] Era. Had Agent Ravena Exposure. 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 Treated at the [place] by Dr. Martha Castañeda - PET-CT 11/26/15 [...] (he opted to not receive ADT) at [facility] with Dr. Evans 02/26-04/26/20 97.2 Gy in 44 fractions PMH: 1. AAA - Abdominal aortic aneurysm 2. Thoracic aortic aneurysm without rupture 3. Follicular non-Hodgkin lymphoma, small cleaved cell 4. Tobacco dependence 5. Alcohol dependence 6. Hypertension 7. Family history of prostate cancer 8. Family history of malignant neoplasm of breast 9. Personal History of Exposure to Agent Ravena View : No data to display. Patient Active Problem List Diagnosis Date Noted ??? Severe protein-calorie malnutrition 02/25/2021 ??? Trauma 02/18/2021 ??? Brain aneurysm 09/09/2020 ??? Intracranial bleed 09/02/2020 ??? Malignant neoplasm of prostate 01/05/2020 ??? Follicular lymphoma 04/03/2015 Allergies Allergen Reactions ??? Contrast [Iodine And Iodide Containing Products] Hives ??? Depakote [Divalproex] Other (See Comments) Thrombocytopenia and spontaneous bleeding Medications 11/16/22 1505 Medication Sig Taking? melatonin 3 mg Tablet Take by mouth. Yes mirtazapine (Remeron) 15 mg Tablet TAKE ONE-HALF TABLET BY MOUTH AT BEDTIME FOR DEPRESSION/MOOD Yes cholecalciferol, Vitamin D3, (Vitamin D3) 1,000 [...] Exam: Wt Readings from Last 3 Encounters: 11/16/22 66.5 kg (146 lb 9.6 oz) 10/22/22 67.3 kg (148 lb 6.4 oz) 11/03/21 64.4 kg (142 lb) Temp Readings from Last 3 Encounters: 11/16/22 36.2 ??C (97.1 ??F) (Temporal) 10/22/22 36.9 ??C (98.4 ??F) (Temporal) 11/03/21 36.4 ??C (97.5 ??F) (Temporal) BP Readings from Last 3 Encounters: 11/16/22 124/65 10/22/22 122/67 11/03/21 149/73 Pulse Readings from Last 3 Encounters: 11/16/22 89 10/22/22 78 11/03/21 61 Body surface area is 1.81 meters squared. Wt Readings from Last 3 Encounters: 11/16/22 66.5 kg (146 lb 9.6 oz) 10/22/22 67.3 kg (148 lb 6.4 oz) 11/03/21 64.4 kg (142 lb) KPS Score ECOG Grade Definition 90-100 [...] to bed or chair Physical Exam BP 124/65 (Patient Position: Sitting) Pulse 89 Temp 36.2 ??C (97.1 ??F) (Temporal) Resp 18 Ht 177.8 cm (5' 10) Wt 66.5 kg (146 lb 9.6 oz) SpO2 99% BMI 21.03 kg/m?? Constitutional: Oriented to person, place, and [...] his medical care Review of Laboratory Data: 11.09.22 White blood cell count 11.46 hemoglobin 15.1 [...] cell count normal at 6.0, hemoglobin 14.7 [id number] absolute neutrophil count 4.6 absolute lymphocyte count [...] left inguinal node 03/18/15; taken from the [facility] pathology report - Follicular lymphoma NOTE: Sections [...] AM EDT Office Visit Radiation Oncology at [address] [phone] Taya De La Vega PA [facility] DR HEMATOLOGY [place] [address] 11/13/2024 2:00 PM EDT Office Visit Hematology/Oncology at [address] [phone] [address]irt [address] MD [facility] DR HEMATOLOGY [place] [address] Alem Lazaro APRN [address] [place] [address] DR HEMATOLOGY AND ONCOLOGY [place], [place] [phone] Scheduled Orders Name Type Priority Associated Diagnoses Orde r Schedule Lactate Dehydrogenase Lab Routine Follicular lymphoma, unspecified grade, unspecified body region Expected: 11/17/2023 (Approximate), Expires: 05/18/2024 CBC (with Diff) Lab Routine Follicular lymphoma, unspecified grade, unspecified body region Expected: 11/17/2023 (Approximate), Expires: 05/18/2024 Comprehensive metabolic panel (non-fasting) Lab Routine Follicular lymphoma, unspecified grade, unspecified body region Expected: 11/17/2023 (Approximate), Expires: 05/18/2024 documented as of this encounter Visit Diagnoses Diagnosis Follicular lymphoma, unspecified grade, unspecified body region Malignant neoplasm of prostate documented in this encounter Care Teams Wood Pattern Maker Relationship Specialty Start Date End Date Alfredo Montoya DO [address] [place] [id number] PCP - General Internal Medicine 12/04/19 04/27/23 documented as of this encounter
--- OUTSIDE RECORDS SUMMARY | 2024-05-24 19:29 | XMS_ITS | Encounter Summary ---
Author Organization [facility] Address [facility] [place] [address] Care Team Providers Care Sales Support Rep Name Role Phone Alfredo Montoya DO Primary Care Provider [phone] Encounter Details Date Type Department Care Team (Late Contact Info) Description 02/18/2021 5:05 PM EDT Ancillary Procedure Radiology Library at [facility] [place] [phone] Social History Tobacco Use Types Packs/Day Years [...] AM EDT Office Visit Radiation Oncology at [address] [phone] Taya De La Vega PA [facility] HEMATOLOGY AND ONCOLOGY [place] [address] 11/13/2024 2:00 PM EDT Office Visit Hematology/Oncology at [address] [phone] Kirt Kennedy MD [facility] HEMATOLOGY AND ONCOLOGY [place] [address] Alem Lazaro APRN [address] [place] [address] DR HEMATOLOGY [place] [address] documented as of this encounter Procedures Procedure Name Priority Date/Time Associated Diagnosis Comments FILM LIBRARY STORAGE ONLY DX CHEST STAT 02/18/2021 4:56 PM EDT documented in this encounter Results * Film Library- Storage Only DX Chest (02/18/2021 4:56 PM EDT) Narrative [facility] - 02/18/2021 4:56 PM EDT This exam is auto-finalizing. It's purpose is for storage only. Eduard Luu MD IMG FILM LIBRARY ORD ERABLES [place], [place] documented in this encounter Visit Diagnoses Not on filedocumented in this encounter Care Teams Sales Support Rep Relationship Specialty Start Date End Date Alfredo Montoya DO [address] [place] [id number] PCP - General Internal Medicine 12/04/19 04/27/23 documented as of this encounter
--- OUTSIDE RECORDS SUMMARY | 2024-05-24 19:29 | XMS_ITS | Encounter Summary ---
Author Organization [facility] Address [facility] [place] [place] [address] Care Team Providers Care Contact Officer Name Role Phone Alfredo Montoya DO Primary Care Provider [phone] Encounter Details Date Type Department Care Team (Late Contact Info) Description 02/18/2021 5:10 PM EDT Ancillary Procedure Radiology Library at [facility] [place] [phone] Social History Tobacco Use Types Packs/Day Years [...] AM EDT Office Visit Radiation Oncology at [address] [phone] Taya De La Vega PA [facility] HEMATOLOGY AND ONCOLOGY [place] [address] 11/13/2024 2:00 PM EDT Office Visit Hematology/Oncology at [address] [phone] Kirt Kennedy MD [facility] HEMATOLOGY AND ONCOLOGY [place] [address] Alem Lazaro APRN [address] [place] [address] DR [place] [address] documented as of this encounter Procedures Procedure Name Priority Date/Time Associated Diagnosis Comments FILM LIBRARY STORAGE ONLY DX UPPER EXTREMITY STAT 02/18/2021 4:57 PM EDT documented in this encounter Results * Film Library- Storage Only DX Upper Extremity (02/18/2021 4:57 PM EDT) Narrative [facility] - 02/18/2021 4:57 PM EDT This exam is auto-finalizing. It's purpose is for storage only. Eduard Luu MD IMG FILM LIBRARY ORD ERABLES Performing Organization Address City/State/[facility] Co de Phone Number [place], [place] documented in this encounter Visit Diagnoses Not on filedocumented in this encounter Care Teams Contact Officer Relationship Specialty Start Date End Date Alfredo Montoya DO [address] [place] [id number] PCP - General Internal Medicine 12/04/19 04/27/23 documented as of this encounter
--- OUTSIDE RECORDS SUMMARY | 2024-05-24 19:29 | XMS_ITS | Encounter Summary ---
Author Organization [facility] [place] [address] Care Team Providers Care Vault Keeper Name Role Phone Alfredo Montoya DO Primary Care Provider [phone] Encounter Details Date Type Department Care Team (Late st Contact Info) Description 11/07/2020 11:15 AM EDT TH Visit (TeleHealth) Radiation Oncology at [address] [phone] Mojgan Pierre, [employer] [address] [place] [address] RADIATION ONCOLOGY [place], [place] [phone] Intracranial bleed; Malignant neoplasm of prostate Social History Tobacco [...] as of this encounter Progress Notes * Mojgan Pierre, CHOLO - 11/07/2020 11:15 AM EDT Telephone/TeleHealth Encounter Telephone encounter due to [facility] Emergency. Patient verbally consented to conduct this clinical encounter by telephone. He acknowledges that insurance may be billed for the care provided similar to an in person visit. Patient is at the following location at the time of the phone call. Home: XXX Patient Identification: Reason for contact: Surveillance post treatment for prostate cancer Time since completion of XRT: six months HPI: Name Narcisa Eduardo Date of 1945 ? PCP Alfredo Montoya, DO Referring MD (if different) Dr. Martha Montoya ([place]) ? 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 HISTORY OF PRESENT ILLNESS: Narcisa Eduardo??is a 74 y.o.??male??diagnosed with an unfavorable intermediate- risk prostate cancer. ?? Presenting Symptoms / Duration:?? ePSA; per pt he has had ERIKA in past that did not show any nodules ?? Prior consultations / recommendations: Dr Thomas - [facility] - 12/01/19 - options of , RP, RT reviewed. Patient interested in learning more about RT. Referral placed.? PSA History:?? 11/03/19 - 12.9 ?? Pathology Results / Location:?? TRUS Bx 11/23/19 ([facility]) - ?Gl 4+3 x 1 - Left ?Gl 3+4 x 3 - Bilat ?Gl 3+3 x 2 - Bilat ?? Pertinent Imaging Studies:?? TRUS 11/23/19 - 46 cc gland ? NEOADJUVANT / CONCURRENT THERAPY:??Declined ?? INTENT OF THERAPY: Definitive (Curative) ?? RADIATION TREATMENT DETAILS: ?? Initial Treatment Site Pelvis, Entire SV and Prostate Prescribed Dose 45 Gy in 25 fractions ? Boost Treatment Site 1 Proximal SV and Prostate Prescribe Dose 68.4Gy in 38 fractions ? Boost Treatment Site 2 Prostate Prescribed Dose 79.2 Gy in 44 fractions ? Start Date End Date 02/27/20 04/26/20 ?? Patient Active Problem List Diagnosis Code ??? 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 Malignant neoplasm of prostate C61 ??? Intracranial bleed I62.9 ??? Brain aneurysm I67.1 Past Medical History: Diagnosis Date ??? AAA (abdominal aortic aneurysm) ??? CVA (cerebral vascular accident) 09/28/2019 ??? EtOH dependence h/o quit 09/2019 after stroke ??? HTN (hypertension) ??? Nicotine dependence ??? 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 Seizures ??? Thoracic aortic aneurysm Past Surgical History: Procedure Laterality Date ??? COLONOSCOPY 2011 date is approximate. at [facility] Dr Ko ??? PROSTATE BIOPSY 11/23/2019 Allergies Allergen Reactions ??? Peanut Anaphylaxis ??? Contrast [Iodine And Iodide Containing Products] Hives Medications 11/07/20 1438 Medication Sig Taking? multivit with minerals/lutein (MULTIVITAMIN 50 PLUS ORAL) Take by mouth. Yes aspirin EC 81 mg Tablet, Delayed Release (E.C.) TAKE ONE TABLET BY MOUTH EVERY DAY TO PREVENT STROKE/HEART ATTACK OR FOR PAIN/SWELLING/INFLAMMATION Yes folic acid (Folvite) 1 mg Tablet TAKE ONE TABLET BY MOUTH EVERY DAY VITAMIN/NUTRITION SUPPLEMENT Yes valproate (Depakene) 250 mg/5 mL Solution TAKE ONE TABLESPOONFUL BY MOUTH EVERY TWELVE HOURS Yes levETIRAcetam (KEPPRA) 750 mg Tablet TAKE ONE TABLET BY MOUTH TWICE A DAY Yes potassium chloride ER (K-Dur/Klor-Con) 10 mEq Tablet Sustained Release TAKE ONE TABLET BY MOUTH EVERY DAY TO SUPPLEMENT POTASSIUM Yes ergocalciferol, vitamin D2, (VITAMIN D ORAL) Take by mouth daily. Yes atorvastatin (Lipitor) 80 mg Tablet Take 80 mg by mouth daily. Yes lisinopriL (Prinivil;Zestril) 10 mg Tablet Take 10 mg by mouth daily. Yes Interim History: I reviewed patient allergies, medications, problem list, Previous medical history, Previous surgical history, family history and social history. Change in history: Since he was last seen in clinic Narcisa was hospitalized in [place] due to a brain aneurysm and cranial bleed. He required home care when he was discharged from the hospital but these services are now completed. He will be having a followup CT scan in December. His is present during this visit in order to review his medications and to review recent prostate cancer results as well as to go over specific instructions to address leakage/incontinence. Narcisa indicates that he needs to wear Depends all the time and needs to change these three times a day. The incontinence seems to be somewhat increased. He was treated for a UTI since his last visit.He denies hematuria and dysuria. He has difficulty pushing fluids/water. He currently is on a athletic monitor and this is scheduled for a duration of four weeks. He has nothad any new seizures and has a neurologist locally through [facility]. See ROS ROS: Constitutional: + fatigue, no fevers, no chills, Resp: negative CV: No chest pain. + on athletic monitor x 4 weeks. Neuro; see interim history. No headache, no dizziness. Ambulatory without assistive devices. Not needing rehab services at this time. : satisfaction with voiding pattern: leakage --needs Depends at all times--this gotten worse. Changes Depends three times a day. Incontinence/leakage/number pads a day: Three Depends per day Hematuria: None--had recent infection and had hematuria at that time which has resolved Nocturia: He does not get up to void but his Depends is saturated when he gets up in am Urgency: none Dysuria: none Difficulty with starting urine flow: none GI: in last two week has urgency to move bowels. Has been incontinent --Has loose stool when he eats fast food. No blood-- no constipation, no blood in stool, no abdominal pain Sexual: Not sexually active Musculoskeletal: no skeletal pain, Exercise/functional status: currently limited to activities inside his home. Hopes to start work inhis [employer] soon Psych: mood overall positive Support system: PE: N/A Labs: Date PSA Testosterone 10/24/2020 1.4 309 07/16/2021 3.1 399 Pretreatment PSA 12.9 Assessment/ Plan Mr Narcisa Eduardo is a 74 y.o.man with diagnosed with an unfavorable intermediate- risk prostate cancer (cT1c, Gl 4+3, PSA 12.9).?He declined ADT. His PSA is much lower than prior to treatment and is now 1.4 with a normal testosterone. He has had issues with incontinence which he manages with incontinence briefs that are changed three times a day. We discussed scheduled voiding every two hours when he is awake to reduce the level of incontinence. We reviewed Kegel exercises with patient and his . We will monitor at the time of his next visit. Hydration with water was encouraged given is recent UTI He has had significant health issues since his last visit ie a brain aneurysm and cranial bleed He was treated for this in [place]. He has a neurologist locally at [facility]. His next prostate cancer followup will be in three months with PSA and testosterone prior to visit. I provided care to Mr Eduardo via telephone encounter and spent 30 minutes preparing for the virtualvisit, by reviewing previous care as documented in patient's EMR, in direct discussion with the patient over the phone and afterward coordinating and documenting in the medical record Mr Eduardo had the opportunity to ask questions and I answered to best of my knowledge. He agreed to call radiation oncology in between visits with questions and concerns. documented in this encounter Plan of Treatment Upcoming Encounters Date Type Department Care Team (Late st Contact Info) Description 11/09/2024 10:30 AM EDT Office Visit Radiation Oncology at [address] [phone] Taya De La Vega PA [facility] [place] [address] 11/13/2024 2:00 PM EDT Office Visit Hematology/Oncology at [address] [phone] Kirt Kennedy MD [facility] DR [place] [address] Alem Lazaro APRN [address] [place] [address] DR HEMATOLOGY AND ONCOLOGY [place], [place] [address] documented as of this encounter Visit Diagnoses Diagnosis Intracranial bleed Unspecified intracranial hemorrhage Malignant neoplasm of prostate documented in this encounter Care Teams Vault Keeper Relationship Specialty Start Date End Date Alfredo Montoya DO [address] [place] [address] PCP - General Internal Medicine 12/04/19 04/27/23 documented as of this encounter
--- OUTSIDE RECORDS SUMMARY | 2024-05-24 19:29 | XMS_ITS | Encounter Summary ---
Author Organization [facility] Address [facility] [place] [address] Care Team Providers Care Clinical Laboratory Science Professor Name Role Phone Alfredo Montoya DO Primary Care Provider [phone] Encounter Details Date Type Department Care Team (Late st Contact Info) Description 08/29/2020 Ancillary Procedure Radiology Library at [facility] [phone] Alfredo Montoya DO [address] [place] [address] Social History Tobacco Use Types Packs/Day Years [...] AM EDT Office Visit Radiation Oncology at [address] [phone] Taya De La Vega PA [facility] HEMATOLOGY [place] [address] 11/13/2024 2:00 PM EDT Office Visit Hematology/Oncology at [address] [phone] Kirt Kennedy MD [facility] DR HEMATOLOGY [place] [address] Alem Laazro, CHOLO [address] [place] [address] [place] [address] documented as of this encounter Procedures Procedure Name Priority Date/Time Associated Diagnosis Comments FILM LIBRARY STORAGE ONLY CT HEAD AND SPINE Routine 08/29/2020 12:00 AM EST documented in this encounter Results * Film Library- Storage Only CT Head And Spine (08/29/2020 12:00 AM EST) Narrative [facility] - 10/05/2020 4:19 AM EST This exam is auto-finalizing. It's purpose is for storage only. Alfredo Montoya DO [facility] [place]M LIBRARY OR DERABLES Performing Organization Address City/State/[facility] Co de Phone Number [place], [place] documented in this encounter Visit Diagnoses Not on filedocumented in this encounter Care Teams Clinical Laboratory Science Professor Relationship Specialty Start Date End Date Alfredo Montoya DO [address] [place] [address] PCP - General Internal Medicine 12/04/19 04/27/23 documented as of this encounter
--- OUTSIDE RECORDS SUMMARY | 2024-05-24 19:29 | XMS_ITS | Encounter Summary ---
Author Organization [facility] Address [facility] [place] [address] Care Team Providers Care Plastics Technician Name Role Phone Alfredo Montoya DO Primary Care Provider [phone] Encounter Details Date Type Department Care Team (Late st Contact Info) Description 08/30/2020 Ancillary Procedure Radiology Library at [facility] [place] [address] Alfredo Montoya DO [address] [place] [address] Social History Tobacco Use Types Packs/Day Years [...] AM EDT Office Visit Radiation Oncology at [address] [phone] Taya De La Vega PA [facility] HEMATOLOGY [place] [address] 11/13/2024 2:00 PM EDT Office Visit Hematology/Oncology at [address] [phone] Kirt Kennedy MD [facility] DR HEMATOLOGY [place] [address] Alem Lazaro, CHOLO [address] [place] [address] DR HEMATOLOGY [place] [address] documented as of this encounter Procedures Procedure Name Priority Date/Time Associated Diagnosis Comments FILM LIBRARY STORAGE ONLY ANGIO STUDY Routine 08/30/2020 12:00 AM EST documented in this encounter Results * Film Library- Storage Only Angio Studies (08/30/2020 12:00 AM EST) Narrative [facility] - 10/05/2020 4:48 AM EST This exam is auto-finalizing. It's purpose is for storage only. Alfredo Montoya DO IMG FILM LIBRARY OR DERABLES Performing Organization Address City/State/[facility] Co de Phone Number [place], [place] documented in this encounter Visit Diagnoses Not on filedocumented in this encounter Care Teams Plastics Technician Relationship Specialty Start Date End Date Alfredo Montoya DO [address] [place] [id number] PCP - General Internal Medicine 12/04/19 04/27/23 documented as of this encounter
--- OUTSIDE RECORDS SUMMARY | 2024-05-24 19:29 | XMS_ITS | Encounter Summary ---
Author Organization [facility] Address [facility] [place] [address] Care Team Providers Care Electrical Prospecting Supervisor Name Role Phone Alfredo Montoya DO Primary Care Provider [phone] Encounter Details Date Type Department Care Team (Late Contact Info) Description 10/08/2020 [place] [address] Robson Gardiner PA [facility] [place] [address] SDH (subdural hematoma) Social History Tobacco Use Types Packs/Day Years [...] EDT Office Visit Radiation Oncology at [address] [phone] Taya De La Vega PA [facility] DR [place] [address] 11/13/2024 2:00 PM EDT Office Visit Hematology/Oncology at [address] [phone] Kirt Kennedy MD [facility] DR [place] [address] Alem Lazaro, [address] [place]ATOLOGY [place] [address] documented as of this encounter Visit Diagnoses Diagnosis SDH (subdural hematoma) Subdural hemorrhage documented in this encounter Care Teams Electrical Prospecting Supervisor Relationship Specialty Start Date End Date Alfredo Montoya DO [address] [place] [id number] PCP - General Internal Medicine 12/04/19 04/27/23 documented as of this encounter
--- OUTSIDE RECORDS SUMMARY | 2024-05-24 19:29 | XMS_ITS | Encounter Summary ---
Author Organization [facility], [facility]1983 Address [facility] [place] [address] Care Team Providers Care Temporary Data Entry Clerk Name Role Phone Alfredo Montoya DO Primary Care Provider [phone] Reason for Visit * - Closed Specialty Diagnoses / Procedures Referred By Contaryan t Referred To Contact Procedures Film Library- Storage Only CT Head Alfredo Montoya, DO [address] [place] [address] Referral ID Status Reason Start Date Expiration Date Visits Re quested Visits Authorized [id number] Closed 12/08/2020 12/08/2021 1 1 Encounter Details Date Type Department Care Team (Late st Contact Info) Description 12/07/2020 Ancillary Procedure Radiology Library at [facility] [place] [address] Alfredo Montoya, DO [address] [place] [address] Social History Tobacco Use Types Packs/Day Years [...] EDT Office Visit Radiation Oncology at [address] [phone] Taya De La Vega PA [facility] DR [place] [address] 11/13/2024 2:00 PM EDT Office Visit Hematology/Oncology at [address] [phone] Kirt Kennedy MD [facility] DR [place] [address] Alem Lazaro APRN [address] [place] [address] DR HEMATOLOGY [place] [address] documented as of this encounter Procedures Procedure Name Priority Date/Time Associated Diagnosis Comments FILM LIBRARY STORAGE ONLY CT HEAD Routine 12/07/2020 12:00 AM EDT documented in this encounter Results * Film Library- Storage Only CT Head (12/07/2020 12:00 AM EDT) Narrative [facility] - 12/08/2020 12:25 PM EDT This exam is auto-finalizing. It's purpose is for storage only. Alfredo Montoya DO IMG FILM LIBRARY OR DERABLES [place], [place] documented in this encounter Visit Diagnoses Not on filedocumented in this encounter Care Teams Temporary Data Entry Clerk Relationship Specialty Start Date End Date Alfredo Montoya DO [address] [place] [id number] PCP - General Internal Medicine 12/04/19 04/27/23 documented as of this encounter
--- OUTSIDE RECORDS SUMMARY | 2024-05-24 19:29 | XMS_ITS | Encounter Summary ---
Author Organization [facility] Address [facility] [place] [address] Care Team Providers Care Secure Software Assessor Name Role Phone Alfredo Montoya DO Primary Care Provider [phone] Reason for Referral * Diagnostic Test (Routine) - Closed Specialty Diagnoses / Procedures Referred By Contac t Referred To Contact Radiology Diagnoses Intracranial bleed Procedures CT Head wo Contrast (Generic) Linnea Muhammad PA [facility] [place] [address] [facility] [place] [address] Referral ID Status Reason Start Date Expiration Date V isits Requested Visits Authorized [id number] Closed Specialty Service Requested 09/18/2020 03/17/2021 1 1 Reason for Visit * Reason Comments Trauma Hospital Transfer * Auth/Cert Specialty Diagnoses / Procedures Referred By Contac t Referred To Contact Diagnoses Trauma SAH / SDH Procedures er ipi Referral ID Status Reason Start Date Expiration Date Visits Re quested Visits Authorized [id number] 1 1 Encounter Details Date Type Department Care Team (Late st Contact Info) Description 02/18/2021 7:58 PM EDT - 02/26/2021 2:57 PM EDT Hospital Encounter [address] [place] [address] Alex Carrillo MD [facility] [place] [address] Feliciano Estrada MD [facility] [place] [address] Eduard Luu MD [address] [place], [place] [address] [address] Kaci Blake MD [facility] [place] [address] Trauma; Syncope, unspecified syncope type; Intracranial bleed; Bilateral leg edema; Severe protein-calorie malnutrition Discharge Disposition: Home with VNA Social History Tobacco Use Types Packs/Day Years [...] Sign Reading Time Taken Comments Blood Pressure 127/74 02/26/2021 11:58 AM EDT Pulse 65 02/26/2021 4:06 AM EDT Temperature 36.3 ??C (97.3 ??F) 02/26/2021 1 1:58 AM EDT Respiratory Rate 16 02/26/2021 11:5 8 AM EDT Oxygen Saturation 92% 02/26/2021 11: 58 AM EDT Inhaled Oxygen Concentration - - Weight 58.8 kg (129 lb 10.1 oz) 02/22/2021 6:00 AM EDT Height 177.8 cm (5' 10) 02/22/2021 6:00 AM EDT Body Mass Index 18.6 02/22/2021 6:00 AM EDT documented in this encounter Discharge Summaries * Feliciano Estrada MD - 02/26/2021 12:20 PM EDT Trauma Discharge Summary Patient Name: Narcisa Eduardo Patient Age: 75 y.o. : 1945 Attending Physician: Feliciano Estrada MD Date of Admission: 02/18/2021 Date of Discharge: 02/26/2021 ID: 75 y.o. man admitted on 02/18/2021 with the following injuries: Traumatic Injuries: Injury Intervention Follow-up BRAIN: 1.??tSAH 2. parafalcine SDH 3. LEFT subdural hygroma NSGY:?? -Neurochecks q2H -no need for additional imaging -BP control, keep SBP<160 -Hold anticoagulation/antiplatelets, SCDs while in bed for DVT ppx? Neuro - continue home lacosamide for seizure ppx - Dose increased 02/21 for seizure activity NSGY 2 weeks for repeat head CT ?? Neuro - follow up with out-patient neurologist FACE: 4. Left soft tissue hematoma ? TRAUMA Monitor? [facility] HAND 5. L hand skin tear (dorsal aspect) Wound Team: 1. Leave the Adaptic Touch contact layer in place on the wound bed for all daily wound care. The Adaptic Touch contact layer can be changed every 7 days (last changed 02/20/21) 1. ??Cleanse the wound through the Adaptic Touch layer with??wound cleanser and gauze. 2. ??Apply Hydrogel??over the Adaptic Touch. 3. ??Cover with Mepilex Lite and secure with Kerlix.?? F/U in [facility] (to be coordinated with trauma visit). ?? The following appointments have been scheduled on your behalf: Future Appointments Date Time Provider Department Center 03/14/2021 8:30 AM Kristi Carey APRN [facility] [place] [facility] [place]/14/2021 9:40 AM [facility] CT [address] [facility] Rad 03/14/2021 10:30 AM Silvia Zapata APRN [facility] [id number] [facility] Other In-hospital Issues: - Acute Pain Secondary Diagnosis: Past Medical History: Diagnosis Date ??? AAA (abdominal aortic aneurysm) ??? CVA (cerebral vascular accident) 09/28/2019 ??? EtOH dependence h/o quit 09/2019 after stroke ??? HTN (hypertension) ??? Nicotine dependence ??? 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 Seizures ??? Thoracic aortic aneurysm ??? Trauma Allergies: Allergies Allergen Reactions ??? Peanut Anaphylaxis ??? Contrast [Iodine And Iodide Containing Products] Hives ??? Depakote [Divalproex] Other (See Comments) Thrombocytopenia and spontaneous bleeding Operations/Procedures: HPI: Narcisa Mesa??is a 75 y.o.??male??p[place] [facility] [place]p [place] from standing. ??Description of events leading up to injury includes: ??Patient was outside [facility], there for a urinary retention and PCP appointment, was sitting on a bench. His went to get the car and heard a thud. She turned around and saw him on the cement unresponsive, reportedly for two minutes. [facility].??He was found to have a subdural hematoma and was transferred to [facility] [place]. ?? Primary survey??revealed: intact??airway, equal??breath sounds/respirations, present 2+??peripheralpulses with stable??vital signs and no signs??of bleeding, GCS 15??(6 - Follows simple motor commands,??5 - Alert and oriented,??4 - Opens eyes on own), and??complete??exposure. ?? Secondary survey??is as follows. 1. Multiple sites of subarachnoid and intraventricular hemorrhage as detailed above. No significantmass effect. 2. Small subdural hematoma along the falx. 3. Interval increased size of a 1.1 cm left convexity subdural hygroma. 4.??Left periorbital soft tissue hematoma Tertiary survey?? CT C/A/P: 1. Nonspecific small amount of perihepatic fluid, below the attenuation expected for hemorrhage, favored to represent sequela of liver disease, given history of alcohol use disorder. 2. Complex cystic lesion in the left interpolar kidney measuring 3.8 cm, indeterminate, recommend further characterization with ultrasound. 3. Eccentric wall thickening along the greater curvature as stomach, a nonspecific finding, may represent sequela of chronic gastritis; however, a malignant process, especially in this patient with prior history of lymphoma, is not definitively excluded. Recommend further characterization with direct visualization via endoscopy in the appropriate clinical setting. 4. Diffuse circumferential wall thickening of the urinary bladder and rectum, along with diffuse pelvic soft tissue stranding, may represent sequelae of prostate cancer radiation treatments, which ended in April 2020, per electronic medical record. 5. Diffusely increased attenuation of the liver measuring approximately 70 Hounsfield units, indeterminate finding, correlate with medication regimen. 6. Stable aneurysmal dilatation of the ascending, infrarenal aorta, and left common iliac artery. 7. Dilation of the main pulmonary artery to 3.3 cm may indicate pulmonary hypertension. CT T&L: 1. Similar multilevel degenerative changes in lumbar spine compared to 12/07/2018 with intervertebral height loss most severe at L2-L3 and L3-L4 with associated cystic and sclerotic endplate change. Bilateral facet arthropathy observed throughout the lumbar spine but most prominent in the mid and lower lumbar spine, with kissing spinous processes are present. 2. Anterior wedge deformity T12, unchanged from exam of 12/03/2020 Hospital Course: Narcisa Eduardo is a 75 y.o. male involved in a fall from standing on 02/18/2021. He was admitted to the trauma service after a fall outside his urologist's office. Neurosurgery wasconsulted and he was admitted to the step down unit for q2 neuro checks and neurology was consultedfor the medical management of his seizures. TTE and CTA were unremarkable and did not indicate a cardiac etiology and carotid vascular etiology for the fall. Urine culture from admission suggested a klebsiella UTI, which was treated with 7 days of antibiotics and 14 days of PO vancomycin as ppx given his recent c. difficile infection. He has a chronic mckeon, which was maintained during his admission. On 02/21, he had a seizure and repeat head CT showed a larger hygoma increased mass effect. He was moved to SICU for further monitoring and his home Vimpat dose was increased. He was stable with head CT showing a stable hygoma and he was moved to the floor. On the floor, he worked with PT and he was cleared for home with 24/7 assistance and VNA services. His , Darrel, has been his mva reactor operator and was comfortable with the role. In the morning of 02/26/2021, the patient states he felt that he was having an out of body experience. A repeat head CT was obtained and was stable. A telephone callwas placed to his PCP's office who was made aware of the patient's condition and medication changes. Precautions reviewed. The patient verbalized understanding of this plan as well as agreement. Narcisa Eduardo's pain was adequately controlled, He was maintaining adequate oxygen saturation on room air, and was hemodynamically stable. He was tolerating a diet without abdominal complaints and voiding adequately. WBC and Hgb were stable. He was ambulating Ambulatory with assistive devices. Bret was evaluated by the Surgery Team and deemed medically stable for discharge on 02/26/21. PLAN: Acute in hospital issues: Acute pain -3 lidoderm patches - tylenol??975mg q6hr SCHED ?? Bowel Regimen Miralax BID Senna ?? LBM: 02/25 ?? Acute UTI - CTX x7 days - Given recent c-diff infection, start vanco PO x14 days ?? Resolved in hospital issues: none ?? Chronic health conditions: Urinary Retention - per his urologist, Dr. Torres. Pt has urinary retention, plan for 1 month with catheter and 03/21 voiding tests - if need to change catheter use 16 coude catheter - Tamsulosin 4 mg ?? 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 Secondary Stroke Prevention Atorvastatin 80 mg ?? Anxiety Bupropion 5 mg BID Severe protein-calorie malnutrition in the setting of chronic illness Appreciate nutrition input. Diet: Regular Diet Activity status: Activity As Tolerated Spine status: No spinal injuries noted Pulmonary toilet: Encourage frequent mobilization, IS use DVT PPX: SCDs, Lovenox nightly GI PPX: Not indicated, tolerating diet Consults (Please see solution consultant notes): PT/OT, NSGY, Neuro Dispo: Home with VNA/Assist Incidental Findings: CT C/A/P: 1. Nonspecific small amount of perihepatic fluid, below the attenuation expected for hemorrhage, favored to represent sequela of liver disease, given history of alcohol use disorder. 2. Complex cystic lesion in the left interpolar kidney measuring 3.8 cm, indeterminate, recommend further characterization with ultrasound. 3. Eccentric wall thickening along the greater curvature as stomach, a nonspecific finding, may represent sequela of chronic gastritis; however, a malignant process, especially in this patient with prior history of lymphoma, is not definitively excluded. Recommend further characterization with direct visualization via endoscopy in the appropriate clinical setting. 4. Diffuse circumferential wall thickening of the urinary bladder and rectum, along with diffuse pelvic soft tissue stranding, may represent sequelae of prostate cancer radiation treatments, which ended in April 2020, per electronic medical record. 5. Diffusely increased attenuation of the liver measuring approximately 70 Hounsfield units, indeterminate finding, correlate with medication regimen. 6. Stable aneurysmal dilatation of the ascending, infrarenal aorta, and left common iliac artery. 7. Dilation of the main pulmonary artery to 3.3 cm may indicate pulmonary hypertension. CT T&L: 1. Similar multilevel degenerative changes in lumbar spine compared to 12/07/2018 with intervertebral height loss most severe at L2-L3 and L3-L4 with associated cystic and sclerotic endplate change. Bilateral facet arthropathy observed throughout the lumbar spine but most prominent in the mid and lower lumbar spine, with kissing spinous processes are present. 2. Anterior wedge deformity T12, unchanged from exam of 12/03/2020 [x]?Incidental Findings Form Completed These findings were discussed with the patient on 02/21/21 by Charleen Colby. Pt signed the Incidental Findings Form and received a copy of it. Pending Lab Data at Discharge: none Pertinent Lab Data: Recent Labs 02/26/21 0404 02/25/21 0256 02/24/21 0424 WBC 6.8 7.1 7.8 HGB 11.7* 11.4* 11.6* HCT 36.4* 35.2* 36.7* PLATELET 168 154 137* Recent Labs 02/26/21 0404 02/25/21 0256 02/24/21 0424 NA 139 139 137 K 4.1 4.1 4.0 CL 105 104 105 CO2 27 27 25 BUN 11 10 8* CREATININE 0.70* 0.69* 0.51* GLUCOSE 103 111 88 CALCIUM 9.1 8.9 8.9 MAGNESIUM 0.85 0.81 0.78 PHOS 3.6 3.5 3.4 Microbiology Data: Greater than 100,000 cfu/ml Klebsiella species : two morphologies,??Abnormal? Discharge Physical Examination: Vital Signs: Last value Range last 24hrs Temperature Temp: 36.3 ??C (97.3 ??F) Temp: [36.3 ??C (97.3 ??F)-36.7 ??C (98.1 ??F)] Heart Rate Heart Rate: 65 Heart Rate: [64-68] Blood Pressure BP: 127/74 BP: (119-146)/(64-78) Respiratory Rate Resp: 16 Resp: [16-18] SpO2 SpO2: 92 % SpO2: [92 %-97 %] Physical Exam: GENERAL: Awake in no acute distress, resting comfortably. Patient states he knows he is in the hospital, but feels that it looks like his home. SKIN: Warm and dry. L??orbital??and??periorbital ecchymosis with??decreased edema, left hand with considerable abrasion, wrapped in bandage HEENT: GARRICK bilaterally. EOMs intact. Moist mucous membranes. NECK: supple CHEST/PULMONARY: No evidence of increased work of breathing or respiratory distress. Lungs clear toauscultation bilaterally. CARDIAC: S1 and S2 heard clearly. Regular rhythm, normal rate. No murmurs, rubs, or gallops. 2+ radial bilaterally. GASTROINTESTINAL: Soft, non-distended, non-tender. Normoactive bowel sounds present. EXTREMITIES:??Able to move all extremities. Able to follow simple commands. NEURO: Alert and oriented to person, place, and time. Sensation intact throughout. Current Medications: The following medications have been prescribed for you. If you notice any adverse reactions to yourmedications, please contact your primary care physician immediately or go to the nearest Emergency Department. Your Medications New Medications Dose Details acetaminophen 325 mg Tab Commonly known as: Tylenol Take 3 tablets by mouth every 6 hours. 975 mg Quantity: 30 tablet Refills: 1 buPROPion 75 mg Tab Commonly known as: Wellbutrin Take 1 tablet by mouth every evening. 75 mg Quantity: 30 tablet Refills: 0 polyethylene glycoL 17 gram Pwpk Commonly known as: Miralax Take 17 g by mouth daily as needed. 17 g Quantity: 14 each Refills: 0 senna-docusate 8.6-50 mg Tab Commonly known as: Pericolace Take 1 tablet by mouth 2 times daily. 1 tablet Quantity: 60 tablet Refills: 11 vancomycin 50 mg/mL Solr Commonly known as: Firvanq Take 2.5 mLs by mouth 2 times daily for 9 days. 125 mg Quantity: 45 mL Refills: 0 Continued medications with new dosing Dose Details lacosamide 100 mg Tab Commonly known as: Vimpat Take 2 tablets by mouth 2 times daily for 30 days. What changed: See the new instructions. 200 mg Quantity: 120 tablet Refills: 0 Continued medications, unchanged Dose Details aspirin EC 81 mg Tbec TAKE ONE TABLET BY MOUTH EVERY DAY TO PREVENT STROKE/HEART ATTACK OR FOR PAIN/SWELLING/INFLAMMATION Refills: 0 atorvastatin 80 mg Tab Commonly known as: Lipitor Take 80 mg by mouth daily. 80 mg Refills: 0 folic acid 1 mg Tab Commonly known as: Folvite TAKE ONE TABLET BY MOUTH EVERY DAY VITAMIN/NUTRITION SUPPLEMENT Refills: 0 lisinopriL 10 mg Tab Commonly known as: Prinivil;Zestril Take 10 mg by mouth daily. 10 mg Refills: 0 MULTIVITAMIN 50 PLUS ORAL Take by mouth. Refills: 0 potassium chloride ER 10 mEq Tbsr Commonly known as: K-Dur/Klor-Con TAKE ONE TABLET BY MOUTH EVERY DAY TO SUPPLEMENT POTASSIUM Refills: 0 tamsulosin 0.4 mg Cap Commonly known as: Flomax TAKE 1 CAPSULE BY MOUTH EVERY DAY 30 MINUTES AFTER THE SAME MEALTIME EACH DAY FOR PROSTATE/URINARY SYMPTOMS. Refills: 0 valproate 250 mg/5 mL Soln Commonly known as: Depakene TAKE ONE TABLESPOONFUL BY MOUTH EVERY TWELVE HOURS Refills: 0 VITAMIN D ORAL Take by mouth daily. Refills: 0 Disposition: home Scheduled Appointments: The following appointments have been scheduled on your behalf: Future Appointments Date Time Provider Department Center 03/14/2021 8:30 AM Kristi Carey APRN [facility] [place] [facility] 03/14/2021 9:40 AM [facility] [address] [facility] Rad 03/14/2021 10:30 AM Silvia Zapata APRN [facility] [id number] [facility] Outpatient Services/Studies: CT Head wo Contrast (Generic) Standing Status: Future Standing Exp. Date: 05/22/21 Question Response Notes Clinical information / barillas questions: follow-up tSAH, parafalcine SDH Where will study be performed? [facility] Radiology [120] Referral to Home Health - at DISCHARGE Order Comments: DOCUMENTATION FOR VNA SERVICES (INCLUDING THOSE PATIENTS WITH MEDICARE COVERAGE REQUIRING HOME VNA SERVICES AND/OR HOSPICE SERVICES) PAT[place]'S [place] [address] [facility] [address] ([place]) Cell: Telephone Information: In discussion with the attending physician, it is certified that this patient is under their care and that they, or a Nurse Practitioner,Clinical Nurse specialist or Physician Magneto Specialist who is working directly with them, had a face to face encounter that meets the physician face to face encounter requirements with this patient on 02/26/2021. The encounter with the patient was in whole, or in part, for the following medical condition, which is the primary reason for home health care services: Limited mobility In discussion with the provider, it is certified that, based on their findings, the following services are medically necessary for home health services. To provide the following care/treatments with the clinical findings supporting the need for services as follows: HOME CARE ORDERS: RN ORDERS:Assess wound or incision, vital signs, cardiopulmonary status, nutrition, hydration, elimination, meds effectiveness and management; reinforce education re health issues PT ORDERS: Continue rehab for endurance, gait stability and strength with mobility and transfers. Home safety evaluation. Home exercise program if appropriate. OT: assess and continue rehab for managing ADL's. HOME HEALTH CARE AGENCY: [facility]. PHONE: [phone] FAX: [phone] Start of care: 24-48 hours after discharge FOR MEDICARE ONLY: (please delete this section if not Medicare) In discussion with the attending physician, it is certified that the clinical findings support thatthis patient is homebound because absences from home require considerable and taxing effort due to:Debility, requires assistance of 1 or more persons to leave the home Please note that any additional orders needs or changes will need to be obtained from this patient's PCP: Alfredo Montoya, DO [address] [facility] [id number] All A agencies which cover the area of patient's residence have been reviewed, either verbally tessy writing, and patient/family have chosen the home health care agency noted Question Response Notes Agency name and contact information [facility] Patient location post discharge Home What services are requested Registered Nurse What services are requested Physical Therapy What services are requested Occupational Therapy Responsible MD post discharge contact info PCP Special Instructions Given to Patient at Discharge:. An After Visit Summary was printed and given to the patient. Your care was managed by the Trauma and Acute Care Surgery Team at [facility]. If you have any questions or concerns, please feel free to contact us. Provider Contact Information: General Surgery Clinic: Nurses line for questions: [facility] (after business hours): CC: Alfredo Montoya DO Yuliya Kramer Kristi Carey APRN Signed: Nj Kimball APRN Department of Surgery 02/26/2021 Trauma pager [phone] This patient was seen in conjunction with Nj Kimball APRN as part of a shared visit. The patient is a 75-year-old man with the traumatic injuries detailed in the table above. In addition to the traumatic injuries I have updated the incidental findings list to include the multiple CT scan findings in the chest abdomen pelvis and thoracic and lumbar spines that were dictated in the reports. The patient should follow-up with his PCP within the next 2 weeks to coordinate surveillancefor these findings. The patient had an incidence of increased confusion this morning which prompteda repeat CT scan of his head. The findings showed stable intracranial hemorrhages. His confusion atthat time was not felt to be secondary to seizure activity. Of note the patient did have a breakthrough seizure while hospitalized for which his lacosamide dose was increased. He he should follow-up with his outpatient neurologist as soon as possible. He also has a scheduled follow-up for urinary retention for which a Mckeon was reinserted. The follow-up appointment is on March 21. Appropriate for discharge home with family with VNA arranged for wound care. The patient has a degloving injury on his dorsal left hand. I have included the detailed wound care instructions in the trauma grid and he should have follow-up coordinated in wound clinic, to coincide with the trauma visit. Feliciano Estrada MD documented in this encounter Discharge Instructions * Discharge Instructions* Linnea Muhammad PA - 02/19/2021 5:29 PM EDT NON-OPERATIVE HEAD INJURY/BLEED DISCHARGE INSTRUCTIONS PRESCRIPTION INSTRUCTIONS: Please see the medication reconciliation list on this discharge summary for a current list of your medications. Stop the use of blood thinning medications until instructed otherwise by your neurosurgical team. This includes medications known as antiplatelet, anticoagulant, and non-steroidal anti-inflammatory (NSAIDs) drugs. Common alzf-dzj-ahgsfur medications which should be avoided include Aspirin, ibuprofen, and naproxen among others. These medications are sometimes combined with other drugs or are sold under a trade name. Common prescription medications which should be avoided include Plavix (clopidogrel) and Coumadin (warfarin) among others. WHEN TO SEEK MEDICAL CARE: New neurologic symptoms - Worsening headaches not controlled with your pain medication - Drowsiness, confusion, and lethargy - Visual changes - Difficulty speaking or slurred speech - Facial droop - New weakness or sensory changes - New unsteadiness when walking - Seizures Constipation not relieved by diet and over the counter stool softeners and laxatives Nausea/vomiting (upset stomach) not controlled with anti-nausea medication Symptoms of a deep venous thrombosis (DVT) or pulmonary embolism (PE): - Swelling/warmth/redness of the leg - Pain in the leg, which can be worse with standing or walking - Chest pain or shortness of breath To help prevent a DVT: - Exercise regularly. Walking, at least several times daily, is helpful. - Ankle pump exercises (like pressing and releasing the gas pedal) should be done regularly. - Keep hydrated with water or other clear liquids (coffee/tea/cola can dehydrate you). - Avoid alcohol and crossing your legs. - Remember not to sit or lay in bed, while awake, for prolonged amounts of time. DIET: - You may resume your usual diet. - Prune juice or prunes can be added to your diet to assist with any constipation. ACTIVITY: - Avoid activities that are physically demanding or require a lot of concentration. They can make your symptoms worse and slow your recovery. - Avoid activities, such as contact or recreational sports, that could lead to a head injury. - When your health continuum of care manager says you are well enough, return to your normal activities gradually, not all at once. - Talk with your health continuum of care manager about when you can return to work. DRIVING: - Do not drive while taking narcotic pain medication. FOLLOW UP PLAN: Appointment: Please follow-up in the Neurosurgery Clinic in 2 weeks with a Neurosurgery Associate Provider. Please call the Neurosurgery Office at [phone] if you do not receive a scheduled appointment withintwo weeks Imaging: Head CT HOW TO REACH NEUROSURGERY Office Hours: Wednesday through Wednesday, 8am-5pm. Call . On weekends or after office hours: Call [phone] and ask the lithograph press operator to page the Neurosurgery Resident/Advanced Practice Provider aegis console operator track. IMPORTANT PHONE NUMBERS: Outpatient Nurse (Arielle Cedillo) Inpatient Nurses Neurosurgical Resident/Advanced Practice Provider On-Call (after 5pm or before 8am) Neurosurgery offices (Wednesday through Wednesday between 8am-5pm): Adult Neurosurgery Dr. Tariq Cm Pediatric Neurosurgery Dr. Bonita Bush Advanced Practice Providers Silvia Zapata, Nurse Practitioner (outpatient) Linnea Muhammad, Physician Magneto Specialist (inpatient) Chloé Hummel, Nurse Practitioner (inpatient) Whit Sorensen, Physician Magneto Specialist (inpatient) Whit Luke, Physician Magneto Specialist (inpatient) Kristie Amaya, Physician Magneto Specialist (outpatient: spine) Romario Loyola, Nurse Practitioner (inpatient/outpatient) Naty Gardiner, Physician Magneto Specialist (outpatient) Marlene Sierra, Nurse Practitioner (outpatient: neuro-oncology) * Patient Instructions* Nj Kimball, AUTISM SPECIALIST - 02/23/2021 8:55 PM EDT Discharge Instructions You were found to have the following injuries and will require follow care as outlined below: Injury Intervention Follow-up BRAIN: 1.??tSAH 2. parafalcine SDH 3. LEFT subdural hygroma NSGY:?? -NC q2 -no need for additional imaging -BP control, keep SBP<160 -Hold anticoagulation/antiplatelets, SCDs while in bed for DVT ppx? Neuro - continue home lacosamide for seizure ppx - Dose??increased / for seizure activity NSGY 2 weeks for repeat head CT ? Neuro - follow up with out-patient neurologist FACE: 4. Left soft tissue hematoma ? TRAUMA Monitor? Trauma Clinic [facility] ? As a result of your CT scans, you were found to have the following incidental findings, please discuss with your primary care provider at you next visit: -Complex cystic lesion in the left interpolar kidney measuring 3.8 cm, indeterminate, recommend further characterization with ultrasound. CALL YOUR PHYSICIAN IF: 1. You have a fever greater than 101F 2. You have diarrhea or vomiting for >24 hours, or stop having bowel movements and passing flatus 3. You have worsening pain, not controlled with your pain medication. 4. You develop redness, swelling, or new drainage from your wounds Prescriptions: See medication reconciliation sheet. Follow up: No future appointments. One of your follow-up appointments will be with Yuliya Crespo a Geriatrics Physician Magneto Specialist. Yuliya is also a former physical therapist. She will perform a comprehensive evaluation wthich will include an assessment of your mobility and strength, your vision and hearing as well as your cognitionand memory. Yuliya will also discuss with you your fall history, any difficulties you are having with your mood, sleep, pain, weight, bowel/bladder function. She will also ensure that your medications are appropriate with appropriate dosing. Her goal is to optimize your functional outcome and improve the quality of your life in the post accident setting. She will ensure that you understand your me dical issues and will communicate with your Primary Care Provider (PCP). Narcotics: You may be given a prescription for a narcotic medication immediately following your surgery. Narcotics are prescribed for short-term (1-3 days) use to help treat your pain. Narcotics do not reduce inflammation and it is inflammation that is usually a major cause of pain after surgery. Narcotics have many side effects such as constipation, lightheadedness, dizziness, sedation, confusion, nausea and vomiting. Driving and the use of alcohol are not recommended while you are using narcotic pain medications. Non-steroidal anti-inflammatories (NSAIDS) such as aspirin, Aleve and ibuprofen (Advil, Motrin) aremedications that reduce pain and inflammation. To reduce your chance of side effects, it is recommended that you use Tylenol as needed for pain and then NSAIDs and use narcotics as the last resort. Alternative means of pain relief such as rest and relaxation, positioning, as well as decreasing stimulants such as coffee, tea, soft drinks, and nicotine may also help to alleviate pain. If you continue to experience significant pain 4-5 days after your discharge, it may be necessary to be re-evaluated by your physician. Driving Restrictions: - No driving if you are too sore to enter or exit your vehicle comfortably, or if you are too sore to easily check your blind spot. No driving while using prescription pain medications Activities: - Discuss return to work or school with your provide at your follow up appointment in the trauma clinic. - Increase your activity slowly. If it hurts don't do it, but try again the following day. - You may tire easily, so frequent naps may be necessary.. - Talk with your doctor about when you can return to work or school. - You may take a shower but have someone nearby in case you need help. Diet: Eat a well-balanced diet. Fresh fruits, vegetables and fiber-containing foods are recommended. Thiswill assist in wound healing. Recommendations: - Take it easy for two weeks. Remember, If it hurts, don't do it. - Take several slow, short walks each day for the first two weeks, and gradually increase your distance. We recommend at least 4 times a day. Wound Care: - You can shower per usual routine - Do not submerge wounds under water (avoid spas, pools and bathtubs) until fully healed. - Do not use creams, oils, or ointments on the wound. - See follow-up appointments for removal of sutures/cristian. Comfort: - Some soreness can be expected. - Take your pain medication as needed and prescribed. - Taper use of pain medication as pain lessens. Follow up appointments: 1. [place] [facility] as indicated in the ???Future Appointments and Orders?? section of your discharge summary. If X-rays or CT scans have been ordered for you prior to this appointment you will need to report to the Radiology department, desk 3T, 1 hour prior to your clinic appointment time. 2. If you do not have a scheduled follow-up appointment listed at the time of discharge, you will be notified of your scheduled appointment on the next business day. Please call [phone] if you do not hear from us by that time, as your timely follow-up is very important to us. Your care was managed by the Trauma and Acute Care Surgery Team at [facility]. If you have any questions or concerns, please feel free to contact us. Provider Contact Information: General Surgery: [facility] [place]after business hours): Primary Care Physician: Alfredo Montoya documented in this encounter Medications at Time of Discharge Medication Sig Dispensed Refills Start Date End Date cholecalciferol, Vitamin D3, (Vitamin D3) 1,000 unit Tablet Take by mouth. 01/05/2021 Lactobacillus acidophilus (PROBIOTIC ORAL) TAKE ONE TABLET BY MOUTH EVERY DAY 02/07/2021 senna-docusate (Pericolace) 8.6-50 mg Tablet Take 1 tablet by mouth 2 times daily. 60 tablet 11 02/26/2021 tamsulosin (Flomax) 0.4 mg Capsule Take 0.8 mg by mouth daily. 12/17/2020 atorvastatin (Lipitor) 80 mg Tablet Take 80 mg by mouth daily. 10/04/2019 tamsulosin (Flomax) 0.4 mg Capsule Take 0.4 mg by mouth. 01/08/202102/21 vancomycin (Firvanq) 50 mg/mL Recon Soln Take 2.5 mLs by mouth 2 times daily for 9 days. 45 mL 02/26/2021 03/07/2021 acetaminophen (Tylenol) 325 mg Tablet Take 3 tablets by mouth every 6 hours. 30 tablet 1 02/26/2021 05/01/2021 buPROPion (Wellbutrin) 75 mg Tablet Take 1 tablet by mouth every evening. 30 tablet 02/26/2021 05/01/2021 lacosamide (Vimpat) 100 mg Tablet Take 2 tablets by mouth 2 times daily for 30 days. 120 tablet 02/26/2021 02/27/2021 multivit with minerals/lutein (MULTIVITAMIN 50 PLUS ORAL) [...] EVERY DAY TO SUPPLEMENT POTASSIUM 06/27/2020 04/23/2022 ergocalciferol, vitamin D2, (VITAMIN D ORAL) Take by mouth daily. lisinopriL (Prinivil;Zestril) 10 mg Tablet Take 10 mg by mouth daily. 09/29/2019 05/01/2021 documented as of this encounter Progress Notes * Judy Harmon RN - 02/26/2021 2:42 PM EDT Patient discharged to home with [facility] services. IV removed, site benign. See primary MAYA Owens's documentation for head to toe assessment findings. Patient denies chest pain and shortness of breath. Discussed pain management with patient, pain tolerable. Patient has all belongings. Patient received discharge summary and prescriptions were reviewed with MAYA Owens. All questions answered.Patient encouraged to call with questions or concerns. Patient discharged to home with family. Discharge Summary was faxed to [facility], RN called report to A, report given to Alem. * Nj Kimball APRN - 02/26/2021 1:44 PM EDT Incidental findings are reviewed with the patient by myself. All questions were answered and the patient signed the incidental finding form. * Davy Sierra SLP - 02/26/2021 10:50 AM EDT Speech Therapy Note Patient Profile: Patient Profile: Narcisa Eduardo??is a 75 y.o.??male??with a past medical history significant for??R MCA stroke (ESUS, Sep 2019) c/b seizure disorder, L SDH s/p MMA embolization (Aug 2020), follicular lymphoma in remission,??and??prostate cancer s/p radiation?admitted on 02/18/2021?In transfer from [facility]??for??fall from standing.??.? Injuries from fall:?? 1. ??Multiple sites of subarachnoid and intraventricular hemorrhage as detailed above. No significant mass effect. 2. ??Small subdural hematoma along the falx. 3. ??Interval increased size of a 1.1 cm left convexity subdural hygroma. 4.??Left periorbital soft tissue hematoma ?? Prior Level of Swallow Function:?? -Unclear swallow history. Pt states he has had some progressive swallowing difficulties the past several weeks.??He continues to consume regular solids and thin liquids at home.??He was being followed by a THERMIT WELDING MACHINE OPERATOR who he states was considering thickening his liquids. Denies having a MBS. ??Reports difficulty initiating a swallow. THERMIT WELDING MACHINE OPERATOR taught him to put downward pressure with cold spoon to bottom lip. Having difficulty with pills. RN received in report that Pt takes his medications whole in maple syrup at home.?? Modified barium swallow study performed 02/20/21 revealed the following: Pt presents with a mild oropharyngeal phase dysphagia characterized by decreased bolus manipulation/formation/control, decreased oral transit time, oral holding, and decreased/delayed pharyngeal initiation. Oral phase deficit result in pre-spillage of solids and with cup and straw sips of thin liquids. Pt demonstrated oral holding and was not able to initiate a swallow with pill administered with liquid. Recommend regular solids and thin liquids with aspiration precautions and swallowing modifications in place. Recommend supervision given Pt's decreased deficit and safety awareness and impulsivity for now. Flash penetration occurred 1x on large sip of thin liquid via straw; Penetration that dose not touch the vocal cords is considered a normal variant 2 = material enters the airway, does not touch the vocal cords, and is completely ejected Interval History: -Tolerating PO and pills crushed in applesauce per RN; No longer being supervised during meals; -Plan is for discharge home today with home health services -Waxing and waning mentation Subjective: Pt verbalized he is ready to go home. Pt denies swallowing problems. States he can takepills whole with water when offered. Pt became slightly agitated with THERMIT WELDING MACHINE OPERATOR trialing therapeutic techniques for swallow initiation, as he felt rushed. Objective: Pt seen for dysphagia management and demonstrated the following: Pain: Denies pain. Respiratory Status: Room air Current Diet: Regular diet Feeding / Oral Care Status: Pt is independent Cognitive-Linguistic Status: Alert; Oriented to self; Easily agitated; In denial of deficits Command Following: Follows multi-step commands Positionin degrees Oral / Laryngeal Mechanism Clinical Assessment: ?? Lingual: ?Tongue protrudes midline. Adequate appearing ROM in all planes. ? Labial / Buccal:??Appears symmetric. Protrusion/retraction present. Adequate appearing labial seal.? Velar: Could not visualize. ?? Vocal fold function and airway protection: ??Volitional cough appears strong. ?? Speech Intelligibility: Speech intelligibility intact at the conversational level. ?? Mucosa: ??Appears moist. ?? Dentition:??Missing some dentition; Poor dental hygiene; Loose dentition upper midline from fall Bolus Presentation(s): ?? Thin liquid via straw ?? Regular solid Oral Preparatory Phase: ?? Mastication: Mastication appeared timely and functional with solids. ?? Oral Transit: Oral holding with liquids; Significant at times lasting approximately 30 seconds ?? Bolus Cohesion: Appeared functional across consistencies. ?? Labial Seal / Loss: Labial seal intact. Negative for loss. ?? Oral Stasis: Negative. Pharyngeal Phase: ?? Vocal quality change: Negative. ?? Cough / throat clear: Negative. ?? Pt. complaint of food getting stuck: Negative. ?? Respiratory rate and respiratory swallow pattern: Negative for changes. Compensatory swallowing strategies: -Verbal cues appeared to sometimes assist with initiating of swallow -Presentation of another straw sip with straw to lip appeared to assist with initiating a swallow; This was only done one time as Pt was became irritated that THERMIT WELDING MACHINE OPERATOR was trying to casarez his swallow function; Education provided to Pt on purpose of technique Esophageal Phase: No overt s/s of esophageal phase deficits with limited PO trials at bedside. Education: Patient educated on results and recommendations. Pt did not agree with participating in trials to try to increase timeliness of the swallow following several attempt. States he has worked on this with a previous THERMIT WELDING MACHINE OPERATOR. Patient status, treatment and swallow recommendations were discussed with nursing and primary team. Requested review consultant recommendations with Pt's family when they arrive to pick him up today. Assessment: Pt was seen today for a follow-up THERMIT WELDING MACHINE OPERATOR visit. At bedside, Pt continues to present with oral holding with thin liquids. Several therapeutic trials to assist with timeliness of swallow were trialed and appeared helpful, however, could not complete enough due to Pt refusal. No overt s/s pene tration/aspiration with PO trials on this date at bedside. Pt currently denies swallowing deficits,but acknowledges working with an outside THERMIT WELDING MACHINE OPERATOR. Pt was independently taking small bites at a slow rate at bedside on this date. Pt will benefit from continued therapeutic interventions to achieve therapy goals. Discussed with Pt being seen by THERMIT WELDING MACHINE OPERATOR in discharge setting. Pt states he is agreeable to see his previous THERMIT WELDING MACHINE OPERATOR. Diagnosis: Oral phase dysphagia; Oropharyngeal phase deficits seen on [facility] 02/20/21 Recommendations: Diet: Regular solids, Thin liquids; Add extra sauces/gravies to assist with bolus formation/control/coordination as needed PO medications: whole with liquid as able with small single sip; crushed in bite of puree with approval from pharmacist as Pt states he chews pills when administered whole with purees; ?? Aspiration precautions: ?? Pt may require one to one direct supervision with PO intake to ensure feeding strategies are followed as needed based on his mentation level at that time. ?? May need verbal cues to use recommended strategies ?? Upright position during meals and for at least 30 mins following ?? Small sips and bites while eating ?? Slow rate; swallow between bites ?? Multiple swallows: Additional dry swallows as needed ?? Alternate liquids and solids ?? Check oral cavity frequently for pocketing ?? Excellent oral care Speech Therapy Goals: To be met by discharge Pt will tolerate least restrictive diet without evidence of dysphagia / aspiration. Pt / caregiver will be independent with aspiration precautions, diet modifications, and safe swallowing strategies. Plan: Therapy Frequency (THERMIT WELDING MACHINE OPERATOR Eval): 1-3 times/wk Pt. in agreement with treatment plan. Total Minutes (Speech Language Pathology): 14 Davy Sierra MS, [facility]-THERMIT WELDING MACHINE OPERATOR Pager: [phone] Speech-Language Pathology Inpatient Rehabilitation Department * Nj Kimball, AUTISM SPECIALIST - 02/26/2021 10:38 AM EDT Trauma Daily Progress Note ID/Mechanism of injury:75 y.o. Male admitted on 02/18/2021 following fall, on 02/18/2021 for the management of Neurologic injuries (Please see below box for a complete summary of injuries) 24 Hour Events: Patient states he felt confused overnight. Received a call in the morning of 02/26/2021 from his daughter stating she was concerned he was more confused when she spoke to him earlier today. Subjective: The patient states he feels like he is having an out of body experience. He denies: Headache, chest pain, dyspnea, abdominal pain, nausea, vomiting, back pain, neck pain, fever, chills, and all other complaints. Current Medications: ??? vancomycin 125 mg Oral BID ??? enoxaparin 40 mg Subcutaneous Nightly ??? buPROPion 75 mg Oral QPM ??? lactobacillus with pectin 1 capsule Oral Daily ??? lacosamide 200 mg Oral BID ??? senna-docusate 1 tablet Oral BID ??? cefTRIAXone 1 g Intravenous Q24H ??? sodium chloride 0.9 % (flush) 5 mL Intravenous BID ??? acetaminophen 975 mg Oral Q6H MERCEDES ??? tamsulosin 0.4 mg Oral Daily ??? atorvastatin 80 mg Oral QPM Vital Signs: VITALS (24hr Range): Temp: [36.4 ??C (97.5 ??F)-36.7 ??C (98.1 ??F)] , Heart Rate: [64-68] , BP: (119-146)/(64-80) , Resp: [16-18] , SpO2: [94 %-97 %] Body mass index is 18.6 kg/m??. I/O: Intake/Output Summary (Last 24 hours) at 02/26/2021 1039 Last data filed at 02/26/2021 0812 Gross per 24 hour Intake 500 ml Output 1100 ml Net -600 ml Physical Exam: GENERAL: Awake in no acute distress, resting comfortably. Patient states he knows he is in the hospital, but feels that it looks like his home. SKIN: Warm and dry. L??orbital??and??periorbital ecchymosis with??decreased edema, left hand with considerable abrasion, wrapped in bandage HEENT: GARRICK bilaterally. EOMs intact. Moist mucous membranes. NECK: supple CHEST/PULMONARY: No evidence of increased work of breathing or respiratory distress. Lungs clear toauscultation bilaterally. CARDIAC: S1 and S2 heard clearly. Regular rhythm, normal rate. No murmurs, rubs, or gallops. 2+ radial bilaterally. GASTROINTESTINAL: Soft, non-distended, non-tender. Normoactive bowel sounds present. EXTREMITIES: Able to move all extremities. Able to follow simple commands. NEURO: Alert and oriented to person, place, and time. Sensation intact throughout. ?? Labs: Recent Labs 02/26/21 0404 02/25/21 0256 02/24/21 0424 WBC 6.8 7.1 7.8 HGB 11.7* 11.4* 11.6* HCT 36.4* 35.2* 36.7* PLATELET 168 154 137* Recent Labs 02/26/21 0404 02/25/21 0256 02/24/21 0424 NA 139 139 137 K 4.1 4.1 4.0 CL 105 104 105 CO2 27 27 25 BUN 11 10 8* CREATININE 0.70* 0.69* 0.51* GLUCOSE 103 111 88 CALCIUM 9.1 8.9 8.9 MAGNESIUM 0.85 0.81 0.78 PHOS 3.6 3.5 3.4 Microbiology: None New Imaging: None Procedures: None Assessment: Narcisa Eduardo is a 75 y.o. Male admitted to the trauma service for the management of [facility] injuries. Plan: Traumatic Injuries: Injury Intervention Follow-up BRAIN: 1.??tSAH 2. parafalcine SDH 3. LEFT subdural hygroma NSGY:?? -NC q2 -no need for additional imaging -BP control, keep SBP<160 -Hold anticoagulation/antiplatelets, SCDs while in bed for DVT ppx? Neuro - continue home lacosamide for seizure ppx - Dose??increased / for seizure activity NSGY 2 weeks for repeat head CT ? Neuro - follow up with out-patient neurologist FACE: 4. Left soft tissue hematoma ? TRAUMA Monitor? Trauma Clinic in 2 weeks [facility] Given confusion this morning, CT head repeated. Read is pending at this time. Continue pain control. Lovenox and SCD's for DVT prophylaxis. Pulmonary toilet. Tolerating PO. Continue Mckeon to gravity.Last dose of Rocephin today. Continue vancomycin PO for a 14 day course. Case discussed with the patient's daughter by telephone ([phone]). Acute in hospital issues: Acute pain -3 lidoderm patches - tylenol 975 q6hr SCHED Bowel Regimen LBM: 02/25/2021 Acute UTI -Ceftriaxone x 7 days. Last dose is 02/26/2021. -Continue prophylaxis with vancomycin for a 14 days course given recent c-diff infection. Chronic health conditions: Urinary Retention - per his urologist, Dr. Torres. Pt has urinary retention, plan for 1 month with catheter and 03/21 voiding tests - if need to change catheter use 16 coude catheter - Tamsulosin 4 mg ?? 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 Secondary Stroke Prevention Atorvastatin 80 mg ?? Anxiety Bupropion 5 mg BID Fluids/Electrolytes: Tolerating PO Diet: Regular diet Activity status: Activity As Tolerated Spine status: No spinal injuries noted Pulmonary toilet: Encourage frequent mobilization, IS use, titrate O2 >90 DVT PPX: SCDs, Lovenox nightly GI PPX: Not indicated, tolerating diet Lines/Tubes/Drains: PIV, mckeon Consults (Please see solution consultant notes): PT/OT Dispo: Home with VNA/Assist,CRC working on dispo plan Status: Floor Incidental Findings: Complex cystic lesion in the left interpolar kidney measuring 3.8 cm, indeterminate, recommend further characterization with ultrasound. [x] Incidental Findings Form Completed Nj Kimball APRN 02/26/2021 Trauma pager [phone] * Nj Kimball APRN - 02/26/2021 10:26 AM EDT TACS DISCHARGE FOLLOW-UP REQUEST IID/MECHANISM OF INJURY: Narcisa Eduardo is a 75 y.o. male s/p fall with the following injuries: INJURIES BOX: Injury Intervention Follow-up BRAIN: 1.??tSAH 2. parafalcine SDH 3. LEFT subdural hygroma NSGY:?? -NC q2 -no need for additional imaging -BP control, keep SBP<160 -Hold anticoagulation/antiplatelets, SCDs while in bed for DVT ppx? Neuro - continue home lacosamide for seizure ppx - Dose??increased 02/21 for seizure activity NSGY 2 weeks for repeat head CT ? Neuro - follow up with out-patient neurologist FACE: 4. Left soft tissue hematoma ? TRAUMA Monitor? Trauma Clinic in 2 weeks [facility] OR CASE INFORMATION: None FOLLOW-UP NEEDED: Specify Trauma BUSINESS LINE CONTROLLER or Attending and time frame (please indicate reason if attending provider): AUTISM SPECIALIST in 2 weeks Imaging and Referral orders entered: No Radiology Safety questions done for MRI/CT? N/A Patient over age 65? Make sure to drop [facility] if answer yes ON DISCHARGE SUMMARY/AVS. Yes New or current ostomy? Ostomy nurse shared visit No Mobility concerns: Ambulatory w. assistive device Wound vac (requires 60min clinic visit) No On vent? If Yes - Needs to have someone from facility and supplies. No On Dialysis: No (SCHEDULE?) INCIDENTAL FINDINGS Incidental Findings (yes/no): Yes OPIOID CONSENT/NARCOTIC AGREEMENTS Current Month Narcotic Consent? No Isolation No Isolation D/c to: Home with VNA If Rehab - Rehab Name: PCP Name: DO Nj Guadalupe APRN 02/26/2021 * Yanet Stokes, PT - 02/25/2021 4:10 PM EDTSummary: Pt safe for DC to home w/ 's support 15/03, has all needed DME. Recommend home services, home PT Physical Therapy Note Treatment Number PT: 4 ?? Patient profile: Narcisa Eduardo??is a 75 y.o.?male??admitted on 02/18/2021??for ground level fall from standing with +LOC. Patient presents with the following injuries:?? 1. ??Multiple sites of subarachnoid and intraventricular hemorrhage ??No significant mass effect. 2. ??Small subdural hematoma along the falx. 3. ??Interval increased size of a 1.1 cm left convexity subdural hygroma. 4.??Left periorbital soft tissue hematoma ?? Interval History: Seizure activity on 02/21/21 and transferred to ICU, then transferred to [facility] on 02/22/21. Pt now stable on [facility] w/ reporting probable DC to home tomorrow ?? Social History: Patient is somewhat of poor historian. Reports he lives with his (Canoe-y phonetically) in asingle level house with 4 sets of stairs to enter. Sleeps in a regular bet but does have reclinerchair if needed. Typically ambulates without AD but sometimes his holds onto his shirt. He denies other hx of falls, but does endorse frequent admissions to [facility] recently, and one stint at rehab. He has a fear of falling/fear of use of walkers (reports they are going to run away on him) He reports assists PRN with hygiene, toileting, ADLs and all IADLs. ?? Daughter, Bertha, reported on 02/24/21 that can help 24/7, they have a walker at home, and thathe can stay on one level and there are 2 stairs to enter without a rail. ?? Precautions/Special Considerations:?? Fall risk, SBP <160, PIV, VENETIE IRA, activity as tolerated; seizure precautions- pads in place on bed. At risk for skin breakdown. Incontinent of stool. Lines: mckeon catheter, IV LUE Activity Orders: activity as tolerated Diet: Regular ?? Mobility and Positioning Recommendations: ?? Pt. To mobilize with rolling walker with cues and contact guard. ?? Sit<->Stand with cues for hand placement and contact guard for safety. ?? Bed alarm and seizure pads for safety. ?? Encourage repositioning and ther-ex. ? Subjective: Pt and both expressed comfort w/ probable DC to home tomorrow ?? Objective: Patient seen for physical therapy and demonstrated the following: ?? Pain: No report of pain. ?? Vital Signs: stable t/o w/ no dizziness or lightheadedness reported Mobility ?? Supine to sit with bed flat w/ supervision. ?? Sit to stand with contact guard and cues for hand placement. ?? Ambulated 150 ft with rolling walker close SBA of guard and cues, reciprocal pattern ?? Pt ascended/descended 3 stairs w/ L hand hold (railing) to simulate home access (but only one step and uses grab handle and door jamb ?? Stand to sit with cues for hand placement. ?? Side stepping up the bed and marching with walker support with contact guard and cues. ?? Sit to supine with supervision. ?? Reviewed Supine ankle pumps, knee flexion and extension, and deep breathing. ?? Left in bed partially to right side w/ HOB ^ w/ recommendation for modified chair position for meaals ?? Education: Discussed d/c plan with pt and who state comfort w/ DC to home, home services including P ?? Assessment: Narcisa Eduardo is now HD # 8 s/p fall with above SAH, SDH and IVH now stable w/ reporting plan for home tomorrow. Pt mobilized as above w/ S only using walker, manage steps safely. provided SBA t/o. Pt has met the following goals and cleared for safe DC to home w/ plan as outlined Discharge Recommendations: Based on the current findings, Anticipated Discharge Disposition (PT): home with home health, home with supervision (dgt reports pt and family would prefer home 24/7 S+home PT ) when medically ready for hospital discharge. ?? Consult Recommendations: No other consults recommended at this time. ?? Equipment needs: Anticipated Equipment Needs at Discharge (PT): (TBD) ? Physical Therapy Goals: Achieved today 02/25/21 ?? 1. Pt. to demonstrate knowledge of safety limitations and precautions 2. Pt. to demonstrate understanding of appropriate exercises. 3. Pt. to perform bed mobility??from flat with supervision assistance 4. Pt. to perform??all??transfers with supervision and FWW 5. Pt. to ambulate??150??feet with supervision??FWW 6. Pt. to ambulate up/down??stairs 2-5 stairs with or without a rail to enter/exit home, with CGA. 7. Family comfortable assisting and overseeing patient with mobility as needed to prepare for a safe d/c with family support. ?? Plan: Pt safe for DC to home w/ 's support 15/03, has all needed DME. 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 Villa), subdural hemorrhage in Aug 2020 s/pL MMA embolization. Narcisa Eduardo is a 75 y.o. male Reason for intervention: Malnutrition evaluation Nutrition Recommendations: Continue regular diet Continue boost pudding bid, added CIB chocolate IC shake with dinner Encourage good PO intake of all meals Monitor weight for trends Monitor and replete lytes as indicated Provided pt with written and verbal diet education for increasing calories and protein, and optimizing hydration (Oral Rehydration Solution Recipes; High Protein High Calorie drink recipes) Recommend referral to outpatient nutrition services (pt had worked with Kristyn Johnson RD in the past) I was able to discuss plan with provider Kirsten Estrada MD. Active Orders Diet Regular diet Frequency: Effective Now Number of Occurrences: Until Specified Lab Results Component Value Date NA 139 02/25/2021 K 4.1 02/25/2021 CL 104 02/25/2021 CO2 27 02/25/2021 BUN 10 02/25/2021 CREATININE 0.69 (L) 02/25/2021 ESTGFR 93 02/25/2021 MAGNESIUM 0.81 02/25/2021 CALCIUM 8.9 02/25/2021 PHOS 3.5 02/25/2021 No results found for: POCGLU Skin Status: Shift Pressure Injury Prevention Occiput: No Injury Thoracic Spine: No Injury Sacral: Existing Injury Ischial - left: No Injury Ischial - right: No Injury Heel - left: No Injury Heel - right: No Injury Elbow - left: No Injury Elbow - right: No Injury Device Sites: O2 sat monitor, IV sites Other Sites: id band; bandage hand Relevant medications: noted Last Bowel Movement: 02/25/21 Admit Weight: 58.8 kg Estimated body mass index is 18.6 kg/m?? as calculated from the following: Height as of this encounter: 177.8 cm (5' 10). Weight as of this encounter: 58.8 kg (129 lb 10.1 oz). [place] Body Weight: 73 kg Usual Body Weight: pt reports 130 lbs Wt loss: reports 52 lb loss in over 1 year, of note 34 lb loss in 1 year (20.8%) Wt Readings from Last 10 Encounters: 02/22/21 58.8 kg (129 lb 10.1 oz) 12/30/20 62 kg (136 lb 9.6 oz) 07/26/20 66.7 kg (147 lb) 06/24/20 68.9 kg (151 lb 12.8 oz) 04/25/20 70.9 kg (156 lb 6.4 oz) 04/18/20 71.6 kg (157 lb 12.8 oz) 04/11/20 72.1 kg (159 lb) 04/04/20 71.1 kg (156 lb 12.8 oz) 03/21/20 72.9 kg (160 lb 12.8 oz) 03/14/20 74.2 kg (163 lb 9.6 oz) Assessment: Estimated needs: Calories: 3564-0625 (25-30 kcal/kg +500 for wt gain) Protein: 88-118 grams (1.5-2 g/kg) Nutrition Focused Physical Exam (NFPE): Performed on 02/25 by CL. Subcutaneous fat loss at Orbital region: Severe Upper arm region (triceps/biceps): Moderate Thoracic and lumbar region (ribs, lower back and maxillary line): Severe Lean muscle loss to Jones region (temporalis muscle): Severe Clavicle bone region (pectoralis major): Severe Dorsal hand (interosseous muscle): Moderate Shoulder (deltoid): Severe Scapular bone region (latissimus dorsi, trapezius muscles): Not assessed Thigh region (quadriceps muscle): Severe Posterior calf region (gastrocnemius muscle): Not assessed Fluid accumulation: Not assessed Nutrition intake and intake history/Interview: Pt reports his appetite has been fine, reports 3 meals a day and 2 shakes a day at home. Of note pt had finished 100% of breakfast this AM. Pt reports usually his wt has been 130 lbs, but over the past year or so he's lost 52lbs d/t radiation/cancer. Pt reports I look in the mirror and feel like I look the same as those POW from [facility] or the [employer] [facility] survivors. Pt reports his at home has been a great support for him, adding protein powder to foods, encouraging him to eat and drink enough. Reports he feels he isn't hydrating well - tried to get him to drink a lot of water during the day but I feel like I've bene dehydrated 4 x recently requested information for recipes for hydrating fluids -provided Oral Rehydration solution recipes and d/w patient. Also provided pt with high protein highcalorie recipes on second visit - discussed ways to increase calories to current diet to try and gain weight back - pt goal is to gain weight. Reports I've only been able to gain about 1-2 lbs when I try, it's frustrating. Validated pts frustrations and d/w pt outpatient nutrition visits as another resource (had met with Kristyn Johnson RD last year). Pt open to seeing outpt nutrition again. Provided pt with film writer's contact info if further questions arise, either from him or from . Likely tod/c tomorrow. Protein-calorie Malnutrition: >20% weight loss in 1 year, Severe subcutaneous fat loss and Severe lean muscle loss is consistent with severe protein-calorie malnutrition in the setting of chronic illness (Mateo, JPEN J Parenteral Enteral Nutr. 2012 December; 36(3): 273-83) Nutrition to continue to follow up while inpatient Oralia Oakes RD Pager #:[phone] * Lacey Hamlin OTA - 02/25/2021 10:17 AM EDT Occupational Therapy Treatment Note Treatment Number OT: 3 Patient Dx:Narcisa Eduardo is a 75 y.o. male admitted on 02/18/2021 for ground level fall from standingwith +LOC. Patient presents with the following injuries: 1. ??Multiple sites of subarachnoid and intraventricular hemorrhage No significant mass effect. 2. ??Small subdural hematoma along the falx. 3. ??Interval increased size of a 1.1 cm left convexity subdural hygroma. 4.??Left periorbital soft tissue hematoma Precautions/Special Considerations: FALL, L arm/hand wound, mckeon Interval History:no acute events S: Im doing ok today O: Patient seen for skilled OT treatment, and demonstrated the following: ?? In bed upon arrival, agreeable to therapy ?? Mod A to wash UB and LB. ?? Max A to doff/don clean gown. ?? Supervision supine>EOB with HOB elevated and increased time. ?? CGA/supervsion to stand from EOB wth FWW and cueing for hand placement. ?? Ambulated 150 ft with CGA/supervision, no LOB noted. ?? Curing for following directions throughout session. ?? Per patient, helps with most things at home. ?? Left sitting upright in bed, all needs met, call mccracken within reach. Pain: none Staff Communication: Patient status, treatment, and mobility recommendations discussed with nursing/other staff. ASSESSMENT: Pt working towards OT goals. He is able to participate with self care tasks and ambulate with CGA and S/u. Per RN and notes patient is to return home with 15/03 assistance/suppport from family. Will continue to monitor and assess. Pt will benefit from ongoing therapeutic interventions toachieve pt's and therapy goals Equipment needs at discharge: to be determined Anticipated Discharge Disposition: home with home health, home with supervision Occupational Therapy Goals: Goals: To be achieved by 03/01/21 Pt and will demonstrate good safety with functional transfers and mobility for ADLs Pt will be supervision functional sit to stand transfers from variety of surfaces Pt will be supervision functional mobility household distances Pt will be set up for UE ADLs seated EOB Therapy Frequency (OT): 2-3 times/wk Total Minutes, Occupational Therapy: 25 Pager: [phone] GERARDO BALLESTEROS 02/25/2021 Occupational Therapy Rehabilitation Department * Feliciano Estrada MD - 02/25/2021 7:31 AM EDT Trauma Daily Progress Note ID/Mechanism of injury:Narcisa Eduardo is a 75 y.o. Male admitted on 02/18/2021 following fall from standing for the management of Neurologic injuries (Please see below box for a complete summary of injuries) ?? 24 Hour Events: - concerned about dvt ppx lovenox overnight Subjective: No concerns. Denies SOB, CP, headache. Curious about next steps to leave. Current Medications: ??? enoxaparin 40 mg Subcutaneous Nightly ??? buPROPion 75 mg Oral QPM ??? lactobacillus with pectin 1 capsule Oral Daily ??? vancomycin 125 mg Oral BID ??? lacosamide 200 mg Oral BID ??? polyethylene glycoL (MIRALAX) oral powder 17 g Oral BID ??? senna-docusate 1 tablet Oral BID ??? cefTRIAXone 1 g Intravenous Q24H ??? sodium chloride 0.9 % (flush) 5 mL Intravenous BID ??? acetaminophen 975 mg Oral Q6H MERCEDES ??? tamsulosin 0.4 mg Oral Daily ??? atorvastatin 80 mg Oral QPM Vital Signs: VITALS (24hr Range): Temp Temp: [36.3 ??C (97.3 ??F)-36.9 ??C (98.4 ??F)] , HR Heart Rate: [64-80] , BP BP: (113-133)/(69-75) , RR Resp: [16-18] , SpO2 SpO2: [92 %-98 %] Body mass index is 18.6 kg/m??. I/O: Intake/Output Summary (Last 24 hours) at 02/25/2021 0731 Last data filed at 02/25/2021 0600 Gross per 24 hour Intake 200 ml Output 1320 ml Net -1120 ml Physical Exam: GENERAL: Awake in no acute distress, resting comfortably SKIN: Warm and dry. L orbital and periorbital ecchymosis with decreased edema, left hand with considerable abrasion, wrapped in bandage HEENT: GARRICK bilaterally. EOMs intact. Moist mucous membranes. NECK: supple CHEST/PULMONARY: No evidence of increased work of breathing or respiratory distress. Lungs clear toauscultation bilaterally. CARDIAC: S1 and S2 heard clearly. Regular rhythm, normal rate. No murmurs, rubs, or gallops. 2+ radial bilaterally. GASTROINTESTINAL: Soft, non-distended, non-tender. Normoactive bowel sounds present. EXTREMITIES: Able to move all extremities. Able to follow simple commands. NEURO: Alert and oriented to person, place, and time. Sensation intact throughout. Labs: Recent Labs 02/25/2125502/24/2142302/23/21316 WBC 7.1 7.8 7.8 HGB 11.4* 11.6* 11.1* HCT 35.2* 36.7* 33.9* PLATELET 154 137* 114* Recent Labs 02/25/2125502/24/2142302/23/21316 NA 139 137 142 K 4.1 4.0 3.8 CL 104 105 108* CO2 27 25 27 BUN 10 8* 8* CREATININE 0.69* 0.51* 0.62* GLUCOSE 111 88 172 CALCIUM 8.9 8.9 8.5 MAGNESIUM 0.81 0.78 0.81 PHOS 3.5 3.4 3.4 Microbiology: Urine Culture Greater than 100,000 cfu/ml Klebsiella species : two morphologies,??Abnormal?? New Imaging: none Procedures: none Problem List: Acute pain -3 lidoderm patches - tylenol 975mg q6hr SCHED ?? Bowel Regimen Miralax PRN Pericolace BID ?? LBM: 02/24 - Acute pain Assessment: Narcisa Eduardo is a 75 y.o. Male admitted to the trauma service for the management of thebelow injuries. Pt is hemodynamically stable. Per speech, pt cleared for regular diet and thin liquids by barium swallow. Venous duplex showed no DVT, on lovenox nightly. We will keep his mckeon in-place for his admission per his Urologist, Dr. Torres. Dr. Torres' office was informed that we are treating his klebsiella UTI. Spoke to infectious disease, given his recent history of c. difficle (within the past 6 months), we will prescribe PO vanco while he receives an antibiotic and for 7 additional days thereafter. Patient now floor status. Will monitor for additional seizure activity and begin dispo planning. Plan to go home with 15/03 assistance and VNA help. Plan: Traumatic Injuries: Injury Intervention Follow-up BRAIN: 1.??tSAH 2. parafalcine SDH 3. LEFT subdural hygroma NSGY: -NC q2 -no need for additional imaging -BP control, keep SBP<160 -Hold anticoagulation/antiplatelets, SCDs while in bed for DVT ppx?? Neuro - continue home lacosamide for seizure ppx - Done increased 02/21 for seizure activity NSGY 2 weeks for repeat head CT FACE: 4. Left soft tissue hematoma ?? TRAUMA Monitor ? Trauma Clinic [facility] ?? Acute in hospital issues: Acute pain -3 lidoderm patches - tylenol 975mg q6hr SCHED ?? Bowel Regimen Miralax BID Senna LBM: 02/23 Acute UTI - CTX x7 days, finishes 02/26 - Given recent c-diff infection, start vanco PO x14 days Resolved in hospital issues: none Chronic health conditions: Urinary Retention - per his urologist, Dr. Torres. 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 Secondary Stroke Prevention Atorvastatin 80 mg Anxiety Bupropion 5 mg BID Fluids/Electrolytes: Tolerating PO Diet: Regular diet Activity status: Activity As Tolerated Spine status: No spinal injuries noted Pulmonary toilet: Encourage frequent mobilization, IS use, titrate O2 >90 DVT PPX: SCDs, lovenox nightly GI PPX: Not indicated, tolerating diet Lines/Tubes/Drains: PIV, mckeon Consults (Please see solution consultant notes): PT/OT Dispo: TBD,CRC working on dispo plan Status: Floor Incidental Findings: Complex cystic lesion in the left interpolar kidney measuring 3.8 cm, indeterminate, recommend further characterization with ultrasound. [x]? Incidental Findings Form Completed Charleen Colby MD 02/25/2021 Trauma pager [phone] I saw and evaluated the patient with Dr. Colby (resident). I have independently reviewed the relevant laboratory and radiographic studies. I have edited the above note and agree with the details aswritten. My physical examination confirms the resident's findings. The assessment and plan were form ulated in discussion with me at the time of the visit and I agree with them as documented. The patient is a 75-year-old man with the traumatic injuries detailed in the table above. Physical therapy has been evaluating him for disposition and he is potentially appropriate for discharge homewith 24-hour supervision and a visiting nurse to assist. Over the weekend his lacosamide was increased for breakthrough seizures. He is also being treated for a Klebsiella UTI and is on day 6 of 7 ofhis ceftriaxone. He also has a history of a C. difficile infection for which infectious disease recommended 7 days of additional oral Vanco past the time of the last day of his ceftriaxone therapy. Will discuss potential discharge home with the patient's . Feliciano Estrada MD * Donal Vargas RN - 02/25/2021 4:39 AM EDT OUTCOME EVALUATION NOTE: OUTCOME SUMMARY: Pnt A/O*4 VSS RA Meds administered at 0810 pm, Bed padded for prcautioStarted on lovenox, was hesitant but later agreed af talking to . No pain, sob, slept most of the night. mckeon in place draining clear yellow urine. Patient progressing towards d/c goals appropriately at this time. Will continue to monitor and helppatient reach d/c goals. PLAN MOVING FORWARD: Pain control Mobilize Emotional support D/c planning INDIVIDUALIZED FALL PREVENTION: Patient is currently a high risk to Fall. Patient educated on bed/chair alarm, demonstrates proper use of call mccracken and verbalizes understanding of fall preventions implemented. Patient-specific fall risk factors per assessment: [current deficits]: Pain, Medications, Hospital Environment. Assistance [level of assistance required for transfers and ambulation]: 1 person assist to bathroomwith FWW Supervision [direct monitoring required during toileting and ADLs]: Moderate ai in with ADL's Surveillance [continuous indirect monitoring]: Masimo, Purposeful Rounding, Nurse Knowledge Exchange, padding bed Patient-specific fall prevention interventions for sensory deficits provided, if applicable: n/a * Donal Vargas RN - 02/24/2021 8:32 PM EDT Pnt hesitant to take lovenox shot explained but want to have a doctor come talk to him. Will page Took other meds okay. 0930 Pm came by talked to pnt and later caller his , pnt agreeable and lovenox was administered. Pnt anxiety settling, he is getting ready to sleep. * Ga Orantes, PT - 02/24/2021 5:50 PM EDT Physical Therapy Note Treatment Number PT: 3 Patient profile: Narcisa Jayce??is a 75 y.o.?male??admitted on 02/18/2021??for ground level fall from standing with +LOC. Patient presents with the following injuries:?? 1. ??Multiple sites of subarachnoid and intraventricular hemorrhage ??No significant mass effect. 2. ??Small subdural hematoma along the falx. 3. ??Interval increased size of a 1.1 cm left convexity subdural hygroma. 4.??Left periorbital soft tissue hematoma Seizure activity on 02/21/21 and transferred to ICU, and transferred to [facility] on 02/22/21. Interval History: 02/21/21- CT revealing increased size of hygroma and seizure earlier in the day- to ICU on 02/21/21; Stable hygroma on repeat Head CT 02/22 to [facility] on 02/22/21 Social History: Patient is somewhat of poor historian. Reports he lives with his (Canoe-y phonetically) in asingle level house with 4 sets of stairs to enter. Sleeps in a regular bet but does have reclinerchair if needed. Typically ambulates without AD but sometimes his holds onto his shirt. He denies other hx of falls, but does endorse frequent admissions to [facility] recently, and one stint at rehab. He has a fear of falling/fear of use of walkers (reports they are going to run away on him) He reports assists PRN with hygiene, toileting, ADLs and all IADLs. Daughter, Bertha, reported on 02/24/21 that can help 15/03, they have a walker at home, and thathe can stay on one level and there are 2 stairs to enter without a rail. ?? Precautions/Special Considerations: Fall risk, SBP <160, PIV, VENETIE IRA, activity as tolerated; seizure precautions- pads in place on bed. At risk for skin breakdown. Incontinent of stool. Lines: mckeon catheter, IV LUE Activity Orders: activity as tolerated Diet: Regular Mobility and Positioning Recommendations: ?? Pt. To mobilize with rolling walker with cues and contact guard. ?? Sit<->Stand with cues for hand placement and contact guard for safety. ?? Bed alarm and seizure pads for safety. ?? Encourage repositioning and ther-ex. Subjective: Vlad has me positioning side to side. I think Mom would like him home, regarding daughter Bertha about d/c plan. The feeling has passed, regarding if he to go the bathroom again. Objective: Patient seen for physical therapy and demonstrated the following: Pain: No report of pain. Vital Signs: Heart Rate: 78 BP: (see RN flow sheets) SpO2: 95 % (occ congested cough) O2 Device: None (Room air) ?? Pt in bed getting cleaned up with staff auditor after incontinence episode. Pt friendly, but a bit wifty at times. ?? Supine to sit with supervision. ?? Sit to stand with contact guard and cues for hand placement. ?? Ambulated 25 ft with rolling walker with contact guard and cues; step through gait to step to intight spaces. ?? Stand to sit with cues for hand placement. ?? Sit <->stand EOB 5x with cues for hand placement, and had recall after practice. ?? Side stepping up the bed and marching with walker support with contact guard and cues. ?? Sitting knee extension ther-ex ?? Sit to supine with supervision. ?? Reviewed Supine ankle pumps, knee flexion and extension, and deep breathing. ?? Left in bed partially to right side to unweit bottom with rails up, bed alarm on, HOB up, dinner set up, and daughter present- and RN aware of pt's status. Education: Discussed d/c plan with daughter and patient, and it appears family would like him home,and is able to provide 24/7 Supervision, and he has had home services in the past. Assessment: Narcisa Eduardo was seen today for physical therapy treatment session for continuation of POC. Pt in good spirits and agreeable to work with PT, he was friendly but a little confused at times. He needed cues for safety and hand placement with transfers and mobility. He needed contact guardfor safety and use walker with ambulation today. He did not appear fearful of walker during session today. Family reports likely plan is home with 24/7 supervision and home services setup, and daughter reports pt's is capable of assisting and overseeing his mobility as needed. Will continue PTto safely progress pt's mobility and function while he remains in-house. Pt will benefit from ongoing therapeutic interventions to achieve therapy goals. Discharge Recommendations: Based on the current findings, Anticipated Discharge Disposition (PT): home with home health, home with supervision (dgt reports pt and family would prefer home 24/7 S+home PT ) when medically ready for hospital discharge. Consult Recommendations: No other consults recommended at this time. Equipment needs: Anticipated Equipment Needs at Discharge (PT): (TBD) Physical Therapy Goals: To be achieved by 03/12/21:-The BELOW GOALS remain ONGOING- and were updated on 02/24/21. ?? 1. Pt. to demonstrate knowledge of safety limitations and precautions 2. Pt. to demonstrate understanding of appropriate exercises. 3. Pt. to perform bed mobility from flat with supervision assistance 4. Pt. to perform all transfers with supervision and least restrictive device 5. Pt. to ambulate 150 feet with supervision and least restrictive assistive device 6. Pt. to ambulate up/down stairs 2-5 stairs with or without a rail to enter/exit home, with CGA. 7. Family comfortable assisting and overseeing patient with mobility as needed to prepare for a safe d/c with family support. Plan: Therapy Frequency (PT): 2-4 times/wk for as outlined in initial evaluation. Time IN / OUT: 1716 to 1750 Total Minutes, Physical Therapy: 34 (functional mobility) GA ORANTES, PT Pager:[phone] Physical Therapy Inpatient Rehabilitation Department * Kaci Blake MD - 02/24/2021 7:02 AM EDT Trauma Daily Progress Note ID/Mechanism of injury:Narcisa Eduardo is a 75 y.o. Male admitted on 02/18/2021 following fall from standing for the management of Neurologic injuries (Please see below box for a complete summary of injuries) ?? 24 Hour Events: - NAD overnight Subjective: No concerns. Denies SOB, CP, headache. Current Medications: ??? buPROPion 75 mg Oral QPM ??? lactobacillus with pectin 1 capsule Oral Daily ??? vancomycin 125 mg Oral BID ??? lacosamide 200 mg Oral BID ??? polyethylene glycoL (MIRALAX) oral powder 17 g Oral BID ??? senna-docusate 1 tablet Oral BID ??? cefTRIAXone 1 g Intravenous Q24H ??? sodium chloride 0.9 % (flush) 5 mL Intravenous BID ??? acetaminophen 975 mg Oral Q6H MERCEDES ??? tamsulosin 0.4 mg Oral Daily ??? atorvastatin 80 mg Oral QPM Vital Signs: VITALS (24hr Range): Temp Temp: [36.4 ??C (97.5 ??F)-36.7 ??C (98.1 ??F)] , HR Heart Rate: [61-79] , BP BP: (126-147)/(72-89) , RR Resp: [16-18] , SpO2 SpO2: [95 %-98 %] Body mass index is 18.6 kg/m??. I/O: Intake/Output Summary (Last 24 hours) at 02/24/2021 0702 Last data filed at 02/24/2021 0520 Gross per 24 hour Intake 0 ml Output 1500 ml Net -1500 ml Physical Exam: GENERAL: Awake in no acute distress, resting comfortably SKIN: Warm and dry. L orbital and periorbital ecchymosis with decreased edema, left hand with considerable abrasion, wrapped in bandage HEENT: GARRICK bilaterally. EOMs intact. Moist mucous membranes. NECK: supple CHEST/PULMONARY: No evidence of increased work of breathing or respiratory distress. Lungs clear toauscultation bilaterally. CARDIAC: S1 and S2 heard clearly. Regular rhythm, normal rate. No murmurs, rubs, or gallops. 2+ radial bilaterally. GASTROINTESTINAL: Soft, non-distended, non-tender. Normoactive bowel sounds present. EXTREMITIES: Able to move all extremities. Able to follow simple commands. NEURO: Alert and oriented to person, place, and time. Sensation intact throughout. Labs: Recent Labs 02/24/2142302/23/2131602/22/21424 WBC 7.8 7.8 6.7 HGB 11.6* 11.1* 11.3* HCT 36.7* 33.9* 34.6* PLATELET 137* 114* 119* Recent Labs 02/24/2142302/23/2131602/22/21424 NA 137 142 140 K 4.0 3.8 3.7 CL 105 108* 105 CO2 25 27 28 BUN 8* 8* 6* CREATININE 0.51* 0.62* 0.51* GLUCOSE 88 172 90 CALCIUM 8.9 8.5 8.8 MAGNESIUM 0.78 0.81 0.74 PHOS 3.4 3.4 3.4 Microbiology: Urine Culture Greater than 100,000 cfu/ml Klebsiella species : two morphologies,??Abnormal?? New Imaging: none Procedures: none Problem List: Acute pain -3 lidoderm patches - tylenol 975mg q6hr SCHED - hydromorphone ?? Bowel Regimen Miralax BID Pericolace BID ?? LBM: 02/22 - Acute pain Assessment: Narcisa Eduardo is a 75 y.o. Male admitted to the trauma service for the management of thebelow injuries. Pt is hemodynamically stable. Per speech, pt cleared for regular diet and thin liquids by barium swallow. Venous duplex showed no DVT, on lovenox nightly. We will keep his mckeon in-place for his admission per his Urologist, Dr. Torres. Dr. Torres' office was informed that we are treating his klebsiella UTI. Spoke to infectious disease, given his recent history of c. difficle (within the past 6 months), we will prescribe PO vanco while he receives an antibiotic and for 7 additional days thereafter. Patient now floor status. Will monitor for additional seizure activity and begin dispo planning. [place] to be cleared by PT. Plan: Traumatic Injuries: Injury Intervention Follow-up BRAIN: 1.??tSAH 2. parafalcine SDH 3. LEFT subdural hygroma NSGY: -NC q2 -no need for additional imaging -BP control, keep SBP<160 -Hold anticoagulation/antiplatelets, SCDs while in bed for DVT ppx?? Neuro - continue home lacosamide for seizure ppx - Done increased 02/21 for seizure activity NSGY 2 weeks for repeat head CT FACE: 4. Left soft tissue hematoma ?? TRAUMA Monitor ? Trauma Clinic [facility] ?? Acute in hospital issues: Acute pain -3 lidoderm patches - tylenol 975mg q6hr SCHED ?? Bowel Regimen Miralax BID Senna ?? LBM: 02/23 Acute UTI - CTX x7 days - Given recent c-diff infection, start vanco PO x14 days Resolved in hospital issues: none Chronic health conditions: Urinary Retention - per his urologist, Dr. Torres. 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 Secondary Stroke Prevention Atorvastatin 80 mg Anxiety Bupropion 5 mg BID Fluids/Electrolytes: Tolerating PO Diet: Regular diet Activity status: Activity As Tolerated Spine status: No spinal injuries noted Pulmonary toilet: Encourage frequent mobilization, IS use, titrate O2 >90 DVT PPX: SCDs, lovenox nightly GI PPX: Not indicated, tolerating diet Lines/Tubes/Drains: PIV, mckeon Consults (Please see solution consultant notes): PT/OT Dispo: TBD,CRC working on dispo plan Status: Floor Incidental Findings: Complex cystic lesion in the left interpolar kidney measuring 3.8 cm, indeterminate, recommend further characterization with ultrasound. [x]? Incidental Findings Form Completed Charleen Colby MD 02/24/2021 Trauma pager [phone] ADDENDUM: I have independently seen and evaluated the patient. I agree with the assessment and planlisted above with the following additions: Narcisa Eduardo is a 75 y.o. male s/p fall from standing with multiple traumatic injuries. Clinical care plan as documented above. KACI BLAKE MD * Donal Vargas RN - 02/24/2021 4:29 AM EDT OUTCOME EVALUATION NOTE: OUTCOME SUMMARY: Pnt alert, oriented *4, occasionally forgetful. VSS, RA. 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 Pnt asleep most of time as from 1030 pm this shift. Rates pain as 0/10, declines scheduled tyrenol. Multiple bruising, weight shifting done in the night. Will continue to monitor and help patient reach d/c goals. PLAN MOVING FORWARD: Pain control Mobilize Seizure precaution Chocking precaution D/c planning INDIVIDUALIZED FALL PREVENTION: Patient is currently a high risk to Fall. Patient educated on bed/chair alarm, demonstrates proper use of call mccracken and verbalizes understanding of fall preventions implemented. Patient-specific fall risk factors per assessment: [current deficits]: Recent seizure 02/21/2021, Pain, Medications, Hospital Environment. Assistance [level of assistance required for transfers and ambulation]: 1 person assist with walkerto bathroom Supervision [direct monitoring required during toileting and ADLs]: Moderate assist with ADL's Surveillance [continuous indirect monitoring]: Masimo, Purposeful Rounding, Nurse Knowledge Exchange Patient-specific fall prevention interventions for sensory deficits provided, if applicable: n/a * Kaci Blake MD - 02/23/2021 7:17 AM EDT Trauma Daily Progress Note ID/Mechanism of injury:Narcisa Eduardo is a 75 y.o. Male admitted on 02/18/2021 following fall from standing for the management of Neurologic injuries (Please see below box for a complete summary of injuries) ?? 24 Hour Events: - Stable hygroma on repeat Head CT 02/22 - NSGY signed off yesterday - Downgraded to floor status Subjective: Hungry for breakfast. No other concerns. Denies SOB, CP, headache Current Medications: ??? buPROPion 75 mg Oral QPM ??? lactobacillus with pectin 1 capsule Oral Daily ??? vancomycin 125 mg Oral BID ??? lacosamide 200 mg Oral BID ??? polyethylene glycoL (MIRALAX) oral powder 17 g Oral BID ??? senna-docusate 1 tablet Oral BID ??? cefTRIAXone 1 g Intravenous Q24H ??? sodium chloride 0.9 % (flush) 5 mL Intravenous BID ??? acetaminophen 975 mg Oral Q6H MERCEDES ??? tamsulosin 0.4 mg Oral Daily ??? atorvastatin 80 mg Oral QPM Vital Signs: VITALS (24hr Range): Temp Temp: [36.4 ??C (97.5 ??F)-37.1 ??C (98.8 ??F)] , HR Heart Rate: [59-74] , BP BP: (104-135)/(57-91) , RR Resp: [16-25] , SpO2 SpO2: [93 %-98 %] Body mass index is 18.6 kg/m??. I/O: Intake/Output Summary (Last 24 hours) at 02/23/2021 0717 Last data filed at 02/23/2021 0600 Gross per 24 hour Intake 480 ml Output 1205 ml Net -725 ml Physical Exam: GENERAL: Awake in no acute distress, resting comfortably SKIN: Warm and dry. L orbital and periorbital ecchymosis with decreased edema, left hand with considerable abrasion, wrapped in bandage HEENT: GARRICK bilaterally. EOMs intact. Moist mucous membranes. NECK: supple CHEST/PULMONARY: No evidence of increased work of breathing or respiratory distress. Lungs clear toauscultation bilaterally. CARDIAC: S1 and S2 heard clearly. Regular rhythm, normal rate. No murmurs, rubs, or gallops. 2+ radial bilaterally. GASTROINTESTINAL: Soft, non-distended, non-tender. Normoactive bowel sounds present. EXTREMITIES: Able to move all extremities. Able to follow simple commands. NEURO: Alert and oriented to person, place, and time. Sensation intact throughout. Labs: Recent Labs 02/23/21 0317 02/22/21 0425 02/21/21 0115 02/20/21 1155 WBC 7.8 6.7 7.3 9.2 HGB 11.1* 11.3* 11.9* 12.5* HCT 33.9* 34.6* 36.7* 37.0* PLATELET 114* 119* 103* 132* Recent Labs 02/23/21 0317 02/22/21 0425 02/21/21 0115 02/20/21 1155 NA 142 140 141 141 K 3.8 3.7 3.6 3.7 CL 108* 105 106 106 CO2 27 28 27 28 BUN 8* 6* 7* 5* CREATININE 0.62* 0.51* 0.73* 0.58* GLUCOSE 172 90 100 116 CALCIUM 8.5 8.8 8.4* 8.4* MAGNESIUM 0.81 0.74 -- 0.74 PHOS 3.4 3.4 -- 2.9 Microbiology: Urine Culture Greater than 100,000 cfu/ml Klebsiella species : two morphologies,??Abnormal?? New Imaging: none Procedures: none Problem List: Acute pain -3 lidoderm patches - tylenol 975mg q6hr SCHED - hydromorphone ?? Bowel Regimen Miralax BID Pericolace BID ?? LBM: 02/22 - Acute pain Assessment: Narcisa Eduardo is a 75 y.o. Male admitted to the trauma service for the management of thebelow injuries. Pt is hemodynamically stable. Per speech, pt cleared for regular diet and thin liquids by barium swallow. Venous duplex showed no DVT, will start anticoagulation tonight. We will keep his mckeon in-place for his admission per his Urologist, Dr. Torres. Dr. Torres' office was informed that we are treating his klebsiella UTI. Spoke to infectious disease, given his recent history of c. difficle (within the past 6 months), we will prescribe PO vanco while he receives an antibiotic and for 7 additional days thereafter. Patient now floor status. Will monitor for additional seizure activity and begin dispo planning. Plan: Traumatic Injuries: Injury Intervention Follow-up BRAIN: 1.??tSAH 2. parafalcine SDH 3. LEFT subdural hygroma NSGY: -NC q2 -no need for additional imaging -BP control, keep SBP<160 -Hold anticoagulation/antiplatelets, SCDs while in bed for DVT ppx?? Neuro - continue home lacosamide for seizure ppx - Done increased 02/21 for seizure activity NSGY 2 weeks for repeat head CT FACE: 4. Left soft tissue hematoma ?? TRAUMA Monitor ? Trauma Clinic [facility] ?? Acute in hospital issues: Acute pain -3 lidoderm patches - tylenol 975mg q6hr SCHED ?? Bowel Regimen Miralax BID Senna ?? 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 Torres. 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 Secondary Stroke Prevention Atorvastatin 80 mg Anxiety Bupropion 5 mg BID Fluids/Electrolytes: Tolerating PO Diet: Regular diet Activity status: Activity As Tolerated Spine status: No spinal injuries noted Pulmonary toilet: Encourage frequent mobilization, IS use, titrate O2 >90 DVT PPX: SCDs, chemoppx held due to ICH GI PPX: Not indicated, tolerating diet Lines/Tubes/Drains: PIV, mckeon Consults (Please see solution consultant notes): PT/OT Dispo: TBD,CRC working on dispo plan Status: Floor Incidental Findings: Complex cystic lesion in the left interpolar kidney measuring 3.8 cm, indeterminate, recommend further characterization with ultrasound. [x]? Incidental Findings Form Completed Charleen Colby MD 02/23/2021 Trauma pager [phone] ADDENDUM: I have independently seen and evaluated the patient. I agree with the assessment and planlisted above with the following additions: Narcisa Eduardo is a 75 y.o. male s/p fall from standing with multiple traumatic injuries. Clinical care plan as documented above. KACI BLAKE MD * Donal Vargas RN - 02/23/2021 5:26 AM EDT OUTCOME EVALUATION NOTE: OUTCOME SUMMARY: Pnt awake, alert *3, occasional fully oriented. VSS on room air. Multiple bruising/ecchymosis, red left eye. Mckeon in place draining yellow urine cath care done last night.. Pnt want meds at 8:30 am and pm, daughter stayed till med pass to encourage the pnt to swallow med. All crushable meds given in apple sauce with pnt all sited up to prevent choking. Not in pain, declining scheduled tyrenol doses.1person assist with FWW to bathroom, able to turn in bed but needs encouragement to turn. Stage 2 decubitus present on admission, new mepilex applied last night. Pnt slept calmly at night, lying in bed on the right side comfortably, call lightly near his hand.Bed padded for seizure precaution.Will continue to monitor and help patient reach d/c goals. PLAN MOVING FORWARD: Pain control Mobilize Pressure are care D/c planning INDIVIDUALIZED FALL PREVENTION: Patient is currently a high risk to Fall. Patient educated on bed/chair alarm, demonstrates proper use of call mccracken and verbalizes understanding of fall preventions implemented. Patient-specific fall risk factors per assessment: [current deficits]: , Pain, Medications, Hospital Environment. Assistance [level of assistance required for transfers and ambulation]: 1 person assist to bathroomwith FWW Supervision [direct monitoring required during toileting and ADLs] Moderate assist with ADL's Surveillance [continuous indirect monitoring]: Masimo, Purposeful Rounding, Nurse Knowledge Exchange Patient-specific fall prevention interventions for sensory deficits provided, if applicable: n/a * Lamar Sandoval RN - 02/22/2021 3:55 PM EDT Patient transferred to [facility]. Report given to receiving RN. All belongings and supplies sent with patient. Family aware of transfer. * Katelynn Cotter RCP - 02/22/2021 2:52 PM EDT 02/22/21 1200 Oxygen Therapy O2 Device RA SpO2 96 % Resp 25 pt on room air irene well Pt has no treatments ordered at this time Will continue to monitor pt * Kaci Blake MD - 02/22/2021 2:34 PM EDT Trauma Daily Progress Note ID/Mechanism of injury:Narcisa Eduardo is a 75 y.o. Male admitted on 02/18/2021 following fall from standing for the management of Neurologic injuries (Please see below box for a complete summary of injuries) ?? 24 Hour Events: - Upgraded to ICU yesterday evening following CT ervealing increased size of hygroma and seizure earlier in the day - AED doging increased per Neuro - NSGY signed off this AM - Downgraded to floor status Subjective: Reporting he is hungry and wants breakfast. No headache. Current Medications: ??? buPROPion 75 mg Oral QPM ??? lactobacillus with pectin 1 capsule Oral Daily ??? vancomycin 125 mg Oral BID ??? lacosamide 200 mg Oral BID ??? polyethylene glycoL (MIRALAX) oral powder 17 g Oral BID ??? senna-docusate 1 tablet Oral BID ??? cefTRIAXone 1 g Intravenous Q24H ??? sodium chloride 0.9 % (flush) 5 mL Intravenous BID ??? acetaminophen 975 mg Oral Q6H MERCEDES ??? tamsulosin 0.4 mg Oral Daily ??? atorvastatin 80 mg Oral QPM Vital Signs: VITALS (24hr Range): Temp Temp: [36.4 ??C (97.5 ??F)-37 ??C (98.6 ??F)] , HR Heart Rate: [56-76] , BP BP: (112-146)/(60-103) , RR Resp: [14-25] , SpO2 SpO2: [93 %-100 %] Body mass index is 18.6 kg/m??. I/O: Intake/Output Summary (Last 24 hours) at 02/22/2021 1434 Last data filed at 02/22/2021 1200 Gross per 24 hour Intake 230 ml Output 1450 ml Net -1220 ml Physical Exam: GENERAL: Awake in no acute distress, resting comfortably SKIN: Warm and dry. L orbital and periorbital ecchymosis with decreased edema, left hand with considerable abrasion, wrapped in bandage HEENT: GARRICK bilaterally. EOMs intact. Moist mucous membranes. NECK: supple CHEST/PULMONARY: No evidence of increased work of breathing or respiratory distress. Lungs clear toauscultation bilaterally. CARDIAC: S1 and S2 heard clearly. Regular rhythm, normal rate. No murmurs, rubs, or gallops. 2+ radial bilaterally. GASTROINTESTINAL: Soft, non-distended, non-tender. Normoactive bowel sounds present. EXTREMITIES: Able to move all extremities. Able to follow simple commands. NEURO: Alert and oriented to person, place, and time. Sensation intact throughout. Labs: Recent Labs 02/22/2142402/21/2111402/20/21 1155 WBC 6.7 7.3 9.2 HGB 11.3* 11.9* 12.5* HCT 34.6* 36.7* 37.0* PLATELET 119* 103* 132* Recent Labs 02/22/2142402/21/2111402/20/21 1155 NA 140 141 141 K 3.7 3.6 3.7 CL 105 106 106 CO2 28 27 28 BUN 6* 7* 5* CREATININE 0.51* 0.73* 0.58* GLUCOSE 90 100 116 CALCIUM 8.8 8.4* 8.4* MAGNESIUM 0.74 -- 0.74 PHOS 3.4 -- 2.9 Microbiology: Urine Culture Greater than 100,000 cfu/ml Klebsiella species : two morphologies,??Abnormal?? New Imaging: CT Head FINDINGS: Unchanged ventricular caliber. Unchanged size of a low attenuation left-sided subdural collection measuring 10 mm in thickness (coronal series 5 image 41). Unchanged mass effect with displacement of the left hemisphere and mild [id number] midline shift measuring 7 mm at the foramen of Sanders. Unchanged low-attenuation subdural collection along the superior right vertex measuring 7mm in thickness (coronal series 5 image 37). ?? Unchanged trace subarachnoid hemorrhage predominantly within the left perisylvian region. Unchanged trace intraventricular blood products layering dependently. Unchanged blood products adjacent to the interventricular septum. ?? Unchanged anterior lateral right frontal lobe encephalomalacia. Ventura matter white matter differentiation is otherwise well preserved. ?? The orbits are unremarkable status post bilateral lens surgery. There is mild mucosal thickening of the bilateral maxillary sinuses with thickening of the maxillary sinus davis consistent with a component of chronic sinusitis. Multiple sites of dental caries and advanced endodontal disease. The mastoid air cells are clear. There is a large quantity of cerumen within the bilateral external auditory canals. No calvarial fracture. Asymmetric fat stranding within the subcutaneous fat of the left face, unchanged from prior. No extracalvarial hematoma. ?? IMPRESSION 1. Stable examination. 2. Unchanged small quantity of subarachnoid hemorrhage. 3. Unchanged ventricular caliber. 4. Unchanged bilateral low-attenuation subdural collection/hygromas. Procedures: none Problem List: Acute pain -3 lidoderm patches - tylenol 975mg q6hr SCHED - hydromorphone ?? Bowel Regimen Miralax BID ?? 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 Male admitted to the trauma service for the management of thebelow injuries. Pt is hemodynamically stable. Per speech, pt cleared for regular diet and thin liquids by barium swallo. Venous duplex showed no DVT, will start anticoagulation tonight. We will keep his mckeon in-place for his admission per his Urologist, Dr. Torres. Dr. Torres' office was informed that we are treating his klebsiella UTI. Spoke to infectious disease, given his recent history of c. difficle (within the past 6 months), we will prescribe PO vanco while he receives an antibiotic and for 7 additional days thereafter. Patient now floor status. Will monitor for additional seizure activity and begin dispo planning. Plan: Traumatic Injuries: Injury Intervention Follow-up BRAIN: 1.??tSAH 2. parafalcine SDH 3. LEFT subdural hygroma NSGY: -NC q2 -no need for additional imaging -BP control, keep SBP<160 -Hold anticoagulation/antiplatelets, SCDs while in bed for DVT ppx?? Neuro - continue home lacosamide for seizure ppx - Done increased 02/21 for seizure activity NSGY 2 weeks for repeat head CT FACE: 4. Left soft tissue hematoma ?? TRAUMA Monitor ? Trauma Clinic [facility] ?? Acute in hospital issues: Acute pain -3 lidoderm patches - tylenol 975mg q6hr SCHED ?? Bowel Regimen Miralax BID Senna ?? 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 Torres. 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 Secondary Stroke Prevention Atorvastatin 80 mg Anxiety Bupropion 5 mg BID Fluids/Electrolytes: Tolerating PO Diet: Regular diet Activity status: Activity As Tolerated Spine status: No spinal injuries noted Pulmonary toilet: Encourage frequent mobilization, IS use, titrate O2 >90 DVT PPX: SCDs, chemoppx held due to ICH GI PPX: Not indicated, tolerating diet Lines/Tubes/Drains: PIV, mckeon Consults (Please see solution consultant notes): PT/OT Dispo: TBD,CRC working on dispo plan Status: Floor Incidental Findings: Complex cystic lesion in the left interpolar kidney measuring 3.8 cm, indeterminate, recommend further characterization with ultrasound. [x]? Incidental Findings Form Completed Pam Padilla, CHOLO 02/22/2021 Trauma pager [phone] ADDENDUM: I have independently seen and evaluated the patient. I agree with the assessment and planlisted above with the following additions: Narcisa Eduardo is a 75 y.o. male s/p fall from standing with multiple traumatic injuries. Clinical care plan as documented above. I certify that the patient continues to require IPI level of care based on fall with TBI. KACI BLAKE MD * Lauryn Martinez - 02/22/2021 12:31 PM EDT Nutrition Services Note - Low Nutrition Acuity Narcisa Eduardo is a 75 y.o. male Reason for intervention: ICU admit Nutrition Plan: Continue current diet. Boost pudding 2x/day. Monitor weight. Encourage good oral intake. Support and encouragement provided. Discussed case with Clinical Dietitian. Pt reports that his appetite is still good. Pt has lost 39 lbs over the past year, pt says that this is due to radiation treatments. Pt has been seen by an outpatient RD. Pt agreed to a trial of boost pudding 2x/day. Nutrition will continue to monitor. Active Orders Diet Regular diet Frequency: Effective Now Number of Occurrences: Until Specified Admit Weight: 58.8 kg Estimated body mass index is 18.6 kg/m?? as calculated from the following: Height as of this encounter: 177.8 cm (5' 10). Weight as of this encounter: 58.8 kg (129 lb 10.1 oz). Wt Readings from Last 5 Encounters: 02/22/21 58.8 kg (129 lb 10.1 oz) 12/30/20 62 kg (136 lb 9.6 oz) 07/26/20 66.7 kg (147 lb) 06/24/20 68.9 kg (151 lb 12.8 oz) 04/25/20 70.9 kg (156 lb 6.4 oz) Weight loss: clinically significant Appetite: Good (50%-75%) Food allergies:no known food allergies, pt says that he is not allergic to peanuts Chewing/Swallowing difficulty: none Nausea/Vomiting: no nausea and no vomiting Last Bowel Movement: (AIDS SOCIAL WORKER) Patient education / questions: all nutrition related questions answered at this time, to be seen [facility] to follow weekly through hospital course unless consulted in the interim. 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 Found to have tSAH, parafalcine SDH and LEFT subdural hygroma, which arestable on repeat imaging. Develop LEFT sided seizure activity 02/21/[address] Head showing increased size of LEFT hygroma for which NSGY is re-engaged. HD# 4 INTERVAL HX/ROS: - Neurologically unchanged - rCTH stable EXAM: GEN:NAD NEURO: Alert & Oriented x3 Speech fluent and appropriate. PERRL. EOMI. 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 Found to have tSAH, parafalcine SDH and LEFT subdural hygroma, which are stable on repeat imaging. Develop LEFT sided seizure activity 02/21/[address] Head showing increased size of LEFT hygroma for which NSGY is re-engaged. As seizure activity does not correspond with side of hygroma, recommend continued close neurological monitoring. No neurolosurgical intervention indicated at this stage. Seizure management per neurology. Clinic follow-up will be scheduled in [facility] in 2 weeks with a repeat hCT. Neurosurgery will sign off, please page with any questions. MEDICATIONS: Scheduled Meds: ??? lactobacillus with pectin 1 capsule Oral Daily ??? vancomycin 125 mg Oral BID ??? lacosamide 200 mg Oral BID ??? polyethylene glycoL (MIRALAX) oral powder 17 g Oral BID ??? senna-docusate 1 tablet Oral BID ??? cefTRIAXone 1 g Intravenous Q24H ??? sodium chloride 0.9 % (flush) 5 mL Intravenous BID ??? buPROPion 75 mg Oral Daily ??? acetaminophen 975 mg Oral Q6H MERCEDES ??? tamsulosin 0.4 mg Oral Daily ??? atorvastatin 80 mg Oral QPM Continuous Infusions: PRN Meds: oxyCODONE OR oxyCODONE, sodium chloride 0.9 % (flush), lidocaine, naloxone Vitals: Temp: [36.4 ??C (97.5 ??F)-37 ??C (98.6 ??F)] Heart Rate: [53-76] Resp: [14-20] BP: (105-146)/(60-103) SpO2: [94 %-100 %] Heart Rate from SpO2: [53 bpm-79 bpm] BMI: Weight: 58.8 kg (129 lb 10.1 oz) (02/22/21 0600) BMI (Calculated): 18.6 BMI Classification: Underweight I/O: I/O last 3 completed shifts: In: 400 [P.O.:350; IV Piggyback:50] Out: 2700 [Urine:2700] LABS: Recent Labs 02/22/2142402/21/21 0115 02/20/21 1155 WBC 6.7 7.3 9.2 HGB 11.3* 11.9* 12.5* PLATELET 119* 103* 132* Recent Labs 02/22/2142402/21/21 0115 02/20/21 1155 NA 140 141 141 K 3.7 3.6 3.7 CL 105 106 106 CO2 28 27 28 BUN 6* 7* 5* CREATININE 0.51* 0.73* 0.58* No results for input(s): PT, INR in the last 72 hours. IMAGING: Results for orders placed or performed during the hospital encounter of 02/18/21 XR Chest AP and Pelvis AP Trauma (Generic) (Exam End: 02/18/2021 8:07 PM) Impression Chest: 1. Possible mild pulmonary vascular congestion. 2. No focal consolidation, pneumothorax or pleural effusions. Pelvis: 1. No acute fracture or traumatic malalignment of the pelvis or proximal femurs. Thank you for letting us participate in the care of this patient. If you are a health care provider and have any questions regarding this report, please contact the number below. For patients who have questions please contact the health continuum of care manager that requested your imaging first. Electronically signed by: Corey Rivers MD, [facility] ([phone]), at 02/18/2021 8:[address] Head & Cervical Spine wo Contrast (Generic) (Exam End: 02/18/2021 8:43 PM) Impression 1. Multiple sites of subarachnoid and intraventricular hemorrhage as detailed above. No significant mass effect. 2. Small subdural hematoma along the falx. 3. Interval increased size of a 1.1 cm left convexity subdural hygroma. 4. Extensive chronic dental disease associated with chronic maxillary sinus inflammation and reactive osseous changes. 5. No acute facial fractures. 6. No acute cervical spine fractures. Thank you for letting us participate in the care of this patient. If you are a health care provider and have any questions regarding this report, please contact the number below. For patients who have questions please contact the health continuum of care manager that requested your imaging first. Thoracic Spine Reconstruction (Exam End: 02/18/2021 8:43 PM) Impression 1. No direct evidence of acute traumatic injury in the chest, abdomen, pelvis, or thoracolumbar spine. Nonspecific small amount of perihepatic fluid, below the attenuation expected for hemorrhage, favored to represent sequela of liver disease, given history of alcohol use disorder. 2. Complex cystic lesion in the left interpolar kidney measuring 3.8 cm, indeterminate, recommend further characterization with ultrasound. Unexpected finding 3. Eccentric wall thickening along the greater curvature as stomach, a nonspecific finding, may represent sequela of chronic gastritis; however, a malignant process, especially in this patient with prior history of lymphoma, is not definitively excluded. Recommend further characterization with direct visualization via endoscopy in the appropriate clinical setting. 4. Diffuse circumferential wall thickening of the urinary bladder and rectum, along with diffuse pelvic soft tissue stranding, may represent sequelae of prostate cancer radiation treatments, which ended in April 2020, per electronic medical record. 5. Diffusely increased attenuation of the liver measuring approximately 70 Hounsfield units, indeterminate finding, correlate with medication regimen. 6. Stable aneurysmal dilatation of the ascending, infrarenal aorta, and left common iliac artery. 7. Dilatation of the main pulmonary artery to 3.3 cm may indicate pulmonary hypertension. Preliminary report signed by: Tariq Gamboa at 02/18/2021 10:47 PM I have personally reviewed the image(s) and the resident's interpretation and agree with the findings, Damian Duggan MD at 02/18/2021 11:49 PM Thank you for letting us participate in the care of this patient. If you are a health care provider and have any questions regarding this report, please contact the number below. For patients who have questions please contact the health continuum of care manager that requested your imaging first. Electronically signed by: Damian Duggan MD, [facility] ([phone]), at 02/18/2021 11:[address] Lumbar Spine Reconstruction (Exam End: 02/18/2021 8:43 PM) Impression 1. No direct evidence of acute traumatic injury in the chest, abdomen, pelvis, or thoracolumbar spine. Nonspecific small amount of perihepatic fluid, below the attenuation expected for hemorrhage, favored to represent sequela of liver disease, given history of alcohol use disorder. 2. Complex cystic lesion in the left interpolar kidney measuring 3.8 cm, indeterminate, recommend further characterization with ultrasound. Unexpected finding 3. Eccentric wall thickening along the greater curvature as stomach, a nonspecific finding, may represent sequela of chronic gastritis; however, a malignant process, especially in this patient with prior history of lymphoma, is not definitively excluded. Recommend further characterization with direct visualization via endoscopy in the appropriate clinical setting. 4. Diffuse circumferential wall thickening of the urinary bladder and rectum, along with diffuse pelvic soft tissue stranding, may represent sequelae of prostate cancer radiation treatments, which ended in April 2020, per electronic medical record. 5. Diffusely increased attenuation of the liver measuring approximately 70 Hounsfield units, indeterminate finding, correlate with medication regimen. 6. Stable aneurysmal dilatation of the ascending, infrarenal aorta, and left common iliac artery. 7. Dilatation of the main pulmonary artery to 3.3 cm may indicate pulmonary hypertension. Preliminary report signed by: Tariq Gamboa at 02/18/2021 10:47 PM I have personally reviewed the image(s) and the resident's interpretation and agree with the findings, Damian Duggan MD at 02/18/2021 11:49 PM Thank you for letting us participate in the care of this patient. If you are a health care provider and have any questions regarding this report, please contact the number below. For patients who have questions please contact the health continuum of care manager that requested your imaging first. Electronically signed by: Damian Duggan MD, [facility] ([phone]), at 02/18/2021 11:[address] Face wo Contrast (Exam End: 02/18/2021 8:43 PM) Impression 1. Multiple sites of subarachnoid and intraventricular hemorrhage as detailed above. No significant mass effect. 2. Small subdural hematoma along the falx. 3. Interval increased size of a 1.1 cm left convexity subdural hygroma. 4. Extensive chronic dental disease associated with chronic maxillary sinus inflammation and reactive osseous changes. 5. No acute facial fractures. 6. No acute cervical spine fractures. Thank you for letting us participate in the care of this patient. If you are a health care provider and have any questions regarding this report, please contact the number below. For patients who have questions please contact the health continuum of care manager that requested your imaging first. Chest Abdomen Pelvis wo Contrast (Exam End: 02/18/2021 8:43 PM) Impression 1. No direct evidence of acute traumatic injury in the chest, abdomen, pelvis, or thoracolumbar spine. Nonspecific small amount of perihepatic fluid, below the attenuation expected for hemorrhage, favored to represent sequela of liver disease, given history of alcohol use disorder. 2. Complex cystic lesion in the left interpolar kidney measuring 3.8 cm, indeterminate, recommend further characterization with ultrasound. Unexpected finding 3. Eccentric wall thickening along the greater curvature as stomach, a nonspecific finding, may represent sequela of chronic gastritis; however, a malignant process, especially in this patient with prior history of lymphoma, is not definitively excluded. Recommend further characterization with direct visualization via endoscopy in the appropriate clinical setting. 4. Diffuse circumferential wall thickening of the urinary bladder and rectum, along with diffuse pelvic soft tissue stranding, may represent sequelae of prostate cancer radiation treatments, which ended in April 2020, per electronic medical record. 5. Diffusely increased attenuation of the liver measuring approximately 70 Hounsfield units, indeterminate finding, correlate with medication regimen. 6. Stable aneurysmal dilatation of the ascending, infrarenal aorta, and left common iliac artery. 7. Dilatation of the main pulmonary artery to 3.3 cm may indicate pulmonary hypertension. Preliminary report signed by: Tariq Gamboa at 02/18/2021 10:47 PM I have personally reviewed the image(s) and the resident's interpretation and agree with the findings, Damian Duggan MD at 02/18/2021 11:49 PM Thank you for letting us participate in the care of this patient. If you are a health care provider and have any questions regarding this report, please contact the number below. For patients who have questions please contact the health continuum of care manager that requested your imaging first. Electronically signed by: Damian Duggan MD, [facility] ([phone]), at 02/18/2021 11:49 PM XR Fluoro Barium Swallow (Modified/Video Swallow Pharynx) (Exam End: 02/20/2021 11:31 AM) Impression 1. Delayed oral phase of swallowing with significant tongue pumping with all consistencies. 2. Flash penetration occurred with thin liquids. No aspiration with any consistency. 3. Swallow trigger occurred at the level of the piriform sinuses with thin liquids. Please see speech and language pathology note for further discussion. I have personally reviewed the image(s) and the resident's interpretation and agree with the findings, Arnel Story MD at 02/20/2021 1:19 PM Thank you for letting us participate in the care of this patient. If you are a health care provider and have any questions regarding this report, please contact the number below. For patients who have questions please contact the health continuum of care manager that requested your imaging first. Electronically signed by: Arnel Story MD, [facility] ([phone]), at 02/20/2021 1:[address] Head wo Contrast (Generic) (Exam End: 02/21/2021 3:51 PM) Impression 1. Decreased supratentorial and infratentorial subarachnoid hemorrhage. Intraventricular hemorrhages are stable to minimally decreased. 2. 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 5 mm [id number] midline shift is stable. Thank you for letting us participate in the care of this patient. If you are a health care provider and have any questions regarding this report, please contact the number below. For patients who have questions please contact the health continuum of care manager that requested your imaging first. Electronically signed by: Silvia Ling MD, [facility] ([phone]), at 02/21/2021 4:[address] Head wo Contrast (Generic) (Exam End: 02/22/2021 4:02 AM) Impression 1. Stable examination. 2. Unchanged small quantity of subarachnoid hemorrhage. 3. Unchanged ventricular caliber. 4. Unchanged bilateral low-attenuation subdural collection/hygromas. Thank you for letting us participate in the care of this patient. If you are a health care provider and have any questions regarding this report, please contact the number below. For patients who have questions please contact the health continuum of care manager that requested your imaging first. Electronically signed by: Corey Rivers MD, [facility] ([phone]), at 02/22/2021 4:34 AM Active Hospital Problems Diagnosis ??? Trauma Resolved Hospital Problems No resolved problems to display. Active Non-Hospital Problems Diagnosis ??? Brain aneurysm ??? Intracranial bleed ??? Malignant neoplasm of prostate ??? Follicular lymphoma MARIMAR URIBE MD 02/22/2021 * Tayler Cramer MD - 02/21/2021 10:44 PM EDT Critical Care Staff Progress Note: ````````````````````````````````````````````````````````````````` HPI/ID: 75-year-old male with a history of prostate cancer undergoing radiation tx, follicular lymphoma (s/p unk chemo regimen at the [facility], in remission as of 07/12), hypertension, CVA (unk deficits), tobacco use, TAAA, and known seizure disorder s/p fall from sitting with resultant SAH, IVH, SDH andsubdural hygroma on 02/18 who had a witnessed seizure on 02/21/21 and is transferred to the ICU for Q1hr neurochecks. Drips: None I/Os: I/O last 3 completed shifts: In: 1020 [P.O.:910; I.V.:60; IV Piggyback:50] Out: 3270 [Urine:3270] I/O this shift: In: - Out: 200 [Urine:200] Intake/Output Summary (Last 24 hours) at 02/21/2021 2244 Last data filed at 02/21/2021 2200 Gross per 24 hour Intake 250 ml Output 1950 ml Net -1700 ml Vent settings/ABGs: RA Physical Exam: Temp: [36.4 ??C (97.5 ??F)-37 ??C (98.6 ??F)] Heart Rate: [45-76] Resp: [16-18] BP: (105-149)/(68-103) SpO2: [95 %-100 %] Heart Rate from SpO2: [45 bpm-79 bpm] There is no height or weight on file to calculate BMI. Gen: Older man, lying in bed, sleeping, though awakens easily, bruising on L side of face Neuro: AAOx3, speech fluent, comprehension intact, follows commands x4 extr, CN III-XII intact, strength intact upper and lower ext CV: RRR on tele, palp pulses Pulm: Unlabored, thick cough Abd: Soft, nt, nd Ext: Thin and wasted. Minor abrasion on L knee Lines: PIV Drains: none Significant labs: Lab Results Component Value Date WBC 7.3 02/21/2021 HGB 11.9 (L) 02/21/2021 HCT 36.7 (L) 02/21/2021 MCV 93.4 (H) 02/21/2021 PLATELET 103 (L) 02/21/2021 Lab Results Component Value Date NA 141 02/21/2021 K 3.6 02/21/2021 CL 106 02/21/2021 CO2 27 02/21/2021 BUN 7 (L) 02/21/2021 CREATININE 0.73 (L) 02/21/2021 GLUCOSE 100 02/21/2021 CALCIUM 8.4 (L) 02/21/2021 Lab Results Component Value Date ALT 26 04/03/2015 AST 23 04/03/2015 ALKPHOS 93 04/03/2015 BILITOT 0.5 04/03/2015 BILIDIR 0.1 04/03/2015 ALBUMIN 4.2 04/03/2015 PROT 6.9 04/03/2015 Lab Results Component Value Date INR 1.0 02/18/2021 No results found for: LACTATE Imaging: CT head today: IMPRESSION ?? 1. Decreased supratentorial and infratentorial subarachnoid hemorrhage. Intraventricular hemorrhages are stable to minimally decreased. 2. 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 5 mm [id number] midline shift is stable. Cx: Urine cx with > 100K Klebsiella x 2 Other studies: ECHO 02/19/21: SUMMARY: ?? 1. The left ventricular chamber size is [...] additional findings. There is no prior study. Assessment and Plan: 75-year-old man with a history of prior seizure disorder on Vimpat 150 twice daily at home, follicular lymphoma, prostate cancer, extensive tobacco use, and T AAA status post fall from sitting with resultant subdural hematoma and hygroma, subarachnoid hemorrhage and intraventricular hemorrhage admitted to the ICU in the context of a seizure. Clinically, Mr. Eduardo is neuro intact with no obvious deficits. I do not see any evidence of the previously mentioned left facial droop. He is currently in the ICU for every 2 hours neuro checks. Ofnote, it is possible that his admission fall was initiated by a seizure. Neurology is currently following and has recommended an increase of home Vimpat. Should seizures recur, we will add Depakote per neurology. Repeat CT tonight. Continue home Wellbutrin. Stable from a hemodynamic and respiratorystandpoint. We will keep n.p.o. overnight. Discussed with neurology and neurosurgery advancement ofdiet if remains seizure- free overnight. Patient currently with Mckeon. He notes that he has a chronic indwelling Mckeon per urology. This may be in the setting of prostate cancer. We will attempt to obtain additional information. Currently being treated for a Klebsiella UTI. Given UTI in a male with chronic indwelling Mckeon, will treat for 10 days. Discussed with pharmacy who feels that seizure threshold unlikely to be altered by ceftriaxone in a patient with seizure disorder who had previously tolerated a dose of ceftriaxone. holding anticoagulation. Core: - Code status:Full - Lines: PIV - Tubes: Mckeon - Drains: none - Glu: wnl - Positioning: In bed with bumpers - GI ppx: Not indicated - DVT ppx: SCDs - Skin integrity: Intact - Family communication: with pt - PT/OT: Can consult in am. Tayler Cramer MD This note was partially written using voice recognition software. //////////////////////////////////////////////////////////////////////////////// //// Attestation: IS PATIENT CRITICALLY ILL ? Is there a high potential of sudden, clinically significant, or life threatening deterioration? YES Is there a need for direct personal assessment and management to treat/prevent multiple vital organfailure/deterioration? YES If this patient is not critically ill, the reason for continued hospitalization is n/a. PATIENT IS CRITICALLY ILL WITH THESE DIAGNOSES BEING MANAGED BY [facility] TEAM: Seizure SDH SAH I personally performed 40 min of aggregate critical care time exclusive of procedures and teaching.This includes time spent during direct patient evaluation and reassessment, interpreting diagnostictests, directing life and/or organ supporting interventions and documentation on the unit. 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 Found to have tSAH, parafalcine SDH and LEFT subdural hygroma, which arestable on repeat imaging. Develop LEFT sided seizure activity 02/21/[address] Head showing increased size of LEFT hygroma for which NSGY is re-engaged. HD# 3 INTERVAL HX/ROS: - On CTX for UTI - Developed LEFT sided seizure activity at about 3PM today - CT Head with increased size of LEFT hygroma with stable MLS - New LEFT facial droop on exam EXAM: GEN:NAD NEURO: Alert & Oriented x3 Speech fluent and appropriate. PERRL. EOMI. 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 Found to have tSAH, parafalcine SDH and LEFT subdural hygroma, which are stable on repeat imaging. Develop LEFT sided seizure activity 02/21/[address] Head showing increased size of LEFT hygroma for which NSGY is re-engaged. As seizure activity does not correspond with side of hygroma, recommend continued close neurological monitoring; no need for urgent neurosurgical intervention. -Neuro checks: Q2h -AEDs/EEG per Neurology -Imaging: CT Head 02/22/2021 4 AM -Goal SBP 90-160 -Maintain serum Na 135-145 -DVT prophylaxis: SCDs. Hold anticoagulation/antiplatelets. -Activity: As tolerated -Rest of care per Trauma MEDICATIONS: Scheduled Meds: ??? lactobacillus with pectin 1 capsule Oral Daily ??? vancomycin 125 mg Oral BID ??? lacosamide 200 mg Oral BID ??? polyethylene glycoL (MIRALAX) oral powder 17 g Oral BID ??? senna-docusate 1 tablet Oral BID ??? cefTRIAXone 1 g Intravenous Q24H ??? sodium chloride 0.9 % (flush) 5 mL Intravenous BID ??? buPROPion 75 mg Oral Daily ??? acetaminophen 975 mg Oral Q6H MERCEDES ??? tamsulosin 0.4 mg Oral Daily ??? atorvastatin 80 mg Oral QPM Continuous Infusions: PRN Meds: oxyCODONE OR oxyCODONE, sodium chloride 0.9 % (flush), lidocaine, naloxone Vitals: Temp: [36.4 ??C (97.5 ??F)-36.7 ??C (98.1 ??F)] Heart Rate: [45-76] Resp: [18] BP: (105-149)/(69-87) SpO2: [97 %-100 %] Heart Rate from SpO2: [45 bpm-79 bpm] BMI: I/O: I/O last 3 completed shifts: In: 1854 [P.O.:710; I.V.:1144] Out: 3320 [Urine:3320] LABS: Recent Labs 02/21/2111402/20/21 11502/19/21 0040 WBC 7.3 9.2 11.4* HGB 11.9* 12.5* 12.1* PLATELET 103* 132* 111* Recent Labs 02/21/2111402/20/21 1155 02/19/21 0040 NA 141 141 140 K 3.6 3.7 3.3* CL 106 106 103 CO2 27 28 30 BUN 7* 5* 4* CREATININE 0.73* 0.58* 0.67* Recent Labs 02/18/212012 PT 11.6 INR 1.0 IMAGING: Results for orders placed or performed during the hospital encounter of 02/18/21 XR Chest AP and Pelvis AP Trauma (Generic) (Exam End: 02/18/2021 8:07 PM) Impression Chest: 1. Possible mild pulmonary vascular congestion. 2. No focal consolidation, pneumothorax or pleural effusions. Pelvis: 1. No acute fracture or traumatic malalignment of the pelvis or proximal femurs. Thank you for letting us participate in the care of this patient. If you are a health care provider and have any questions regarding this report, please contact the number below. For patients who have questions please contact the health continuum of care manager that requested your imaging first. Electronically signed by: Corey Rivers MD, [facility] ([phone]), at 02/18/2021 8:[address] Head & Cervical Spine wo Contrast (Generic) (Exam End: 02/18/2021 8:43 PM) Impression 1. Multiple sites of subarachnoid and intraventricular hemorrhage as detailed above. No significant mass effect. 2. Small subdural hematoma along the falx. 3. Interval increased size of a 1.1 cm left convexity subdural hygroma. 4. Extensive chronic dental disease associated with chronic maxillary sinus inflammation and reactive osseous changes. 5. No acute facial fractures. 6. No acute cervical spine fractures. Thank you for letting us participate in the care of this patient. If you are a health care provider and have any questions regarding this report, please contact the number below. For patients who have questions please contact the health continuum of care manager that requested your imaging first. Thoracic Spine Reconstruction (Exam End: 02/18/2021 8:43 PM) Impression 1. No direct evidence of acute traumatic injury in the chest, abdomen, pelvis, or thoracolumbar spine. Nonspecific small amount of perihepatic fluid, below the attenuation expected for hemorrhage, favored to represent sequela of liver disease, given history of alcohol use disorder. 2. Complex cystic lesion in the left interpolar kidney measuring 3.8 cm, indeterminate, recommend further characterization with ultrasound. Unexpected finding 3. Eccentric wall thickening along the greater curvature as stomach, a nonspecific finding, may represent sequela of chronic gastritis; however, a malignant process, especially in this patient with prior history of lymphoma, is not definitively excluded. Recommend further characterization with direct visualization via endoscopy in the appropriate clinical setting. 4. Diffuse circumferential wall thickening of the urinary bladder and rectum, along with diffuse pelvic soft tissue stranding, may represent sequelae of prostate cancer radiation treatments, which ended in April 2020, per electronic medical record. 5. Diffusely increased attenuation of the liver measuring approximately 70 Hounsfield units, indeterminate finding, correlate with medication regimen. 6. Stable aneurysmal dilatation of the ascending, infrarenal aorta, and left common iliac artery. 7. Dilatation of the main pulmonary artery to 3.3 cm may indicate pulmonary hypertension. Preliminary report signed by: Tariq Gamboa at 02/18/2021 10:47 PM I have personally reviewed the image(s) and the resident's interpretation and agree with the findings, Damian Duggan MD at 02/18/2021 11:49 PM Thank you for letting us participate in the care of this patient. If you are a health care provider and have any questions regarding this report, please contact the number below. For patients who have questions please contact the health continuum of care manager that requested your imaging first. Electronically signed by: Damian Duggan MD, [facility] ([phone]), at 02/18/2021 11:[address] Lumbar Spine Reconstruction (Exam End: 02/18/2021 8:43 PM) Impression 1. No direct evidence of acute traumatic injury in the chest, abdomen, pelvis, or thoracolumbar spine. Nonspecific small amount of perihepatic fluid, below the attenuation expected for hemorrhage, favored to represent sequela of liver disease, given history of alcohol use disorder. 2. Complex cystic lesion in the left interpolar kidney measuring 3.8 cm, indeterminate, recommend further characterization with ultrasound. Unexpected finding 3. Eccentric wall thickening along the greater curvature as stomach, a nonspecific finding, may represent sequela of chronic gastritis; however, a malignant process, especially in this patient with prior history of lymphoma, is not definitively excluded. Recommend further characterization with direct visualization via endoscopy in the appropriate clinical setting. 4. Diffuse circumferential wall thickening of the urinary bladder and rectum, along with diffuse pelvic soft tissue stranding, may represent sequelae of prostate cancer radiation treatments, which ended in April 2020, per electronic medical record. 5. Diffusely increased attenuation of the liver measuring approximately 70 Hounsfield units, indeterminate finding, correlate with medication regimen. 6. Stable aneurysmal dilatation of the ascending, infrarenal aorta, and left common iliac artery. 7. Dilatation of the main pulmonary artery to 3.3 cm may indicate pulmonary hypertension. Preliminary report signed by: Tariq Gamboa at 02/18/2021 10:47 PM I have personally reviewed the image(s) and the resident's interpretation and agree with the findings, Damian Duggan MD at 02/18/2021 11:49 PM Thank you for letting us participate in the care of this patient. If you are a health care provider and have any questions regarding this report, please contact the number below. For patients who have questions please contact the health continuum of care manager that requested your imaging first. Electronically signed by: Damian Duggan MD, [facility] ([phone]), at 02/18/2021 11:[address] Face wo Contrast (Exam End: 02/18/2021 8:43 PM) Impression 1. Multiple sites of subarachnoid and intraventricular hemorrhage as detailed above. No significant mass effect. 2. Small subdural hematoma along the falx. 3. Interval increased size of a 1.1 cm left convexity subdural hygroma. 4. Extensive chronic dental disease associated with chronic maxillary sinus inflammation and reactive osseous changes. 5. No acute facial fractures. 6. No acute cervical spine fractures. Thank you for letting us participate in the care of this patient. If you are a health care provider and have any questions regarding this report, please contact the number below. For patients who have questions please contact the health continuum of care manager that requested your imaging first. Chest Abdomen Pelvis wo Contrast (Exam End: 02/18/2021 8:43 PM) Impression 1. No direct evidence of acute traumatic injury in the chest, abdomen, pelvis, or thoracolumbar spine. Nonspecific small amount of perihepatic fluid, below the attenuation expected for hemorrhage, favored to represent sequela of liver disease, given history of alcohol use disorder. 2. Complex cystic lesion in the left interpolar kidney measuring 3.8 cm, indeterminate, recommend further characterization with ultrasound. Unexpected finding 3. Eccentric wall thickening along the greater curvature as stomach, a nonspecific finding, may represent sequela of chronic gastritis; however, a malignant process, especially in this patient with prior history of lymphoma, is not definitively excluded. Recommend further characterization with direct visualization via endoscopy in the appropriate clinical setting. 4. Diffuse circumferential wall thickening of the urinary bladder and rectum, along with diffuse pelvic soft tissue stranding, may represent sequelae of prostate cancer radiation treatments, which ended in April 2020, per electronic medical record. 5. Diffusely increased attenuation of the liver measuring approximately 70 Hounsfield units, indeterminate finding, correlate with medication regimen. 6. Stable aneurysmal dilatation of the ascending, infrarenal aorta, and left common iliac artery. 7. Dilatation of the main pulmonary artery to 3.3 cm may indicate pulmonary hypertension. Preliminary report signed by: Tariq Gamboa at 02/18/2021 10:47 PM I have personally reviewed the image(s) and the resident's interpretation and agree with the findings, Damian Duggan MD at 02/18/2021 11:49 PM Thank you for letting us participate in the care of this patient. If you are a health care provider and have any questions regarding this report, please contact the number below. For patients who have questions please contact the health continuum of care manager that requested your imaging first. Electronically signed by: Damian Duggan MD, [facility] ([phone]), at 02/18/2021 11:49 PM XR Fluoro Barium Swallow (Modified/Video Swallow Pharynx) (Exam End: 02/20/2021 11:31 AM) Impression 1. Delayed oral phase of swallowing with significant tongue pumping with all consistencies. 2. Flash penetration occurred with thin liquids. No aspiration with any consistency. 3. Swallow trigger occurred at the level of the piriform sinuses with thin liquids. Please see speech and language pathology note for further discussion. I have personally reviewed the image(s) and the resident's interpretation and agree with the findings, Arnel Story MD at 02/20/2021 1:19 PM Thank you for letting us participate in the care of this patient. If you are a health care provider and have any questions regarding this report, please contact the number below. For patients who have questions please contact the health continuum of care manager that requested your imaging first. Electronically signed by: Arnel Story MD, [facility] ([phone]), at 02/20/2021 1:[address] Head wo Contrast (Generic) (Exam End: 02/21/2021 3:51 PM) Impression 1. Decreased supratentorial and infratentorial subarachnoid hemorrhage. Intraventricular hemorrhages are stable to minimally decreased. 2. 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 5 mm [id number] midline shift is stable. Thank you for letting us participate in the care of this patient. If you are a health care provider and have any questions regarding this report, please contact the number below. For patients who have questions please contact the health continuum of care manager that requested your imaging first. Electronically signed by: Silvia Ling MD, [facility] ([phone]), at 02/21/2021 4:09 PM Active Hospital Problems Diagnosis ??? Trauma Resolved Hospital Problems No resolved problems to display. Active Non-Hospital Problems Diagnosis ??? Brain aneurysm ??? Intracranial bleed ??? Malignant neoplasm of prostate ??? Follicular lymphoma MARISOL Fletcher 02/21/2021 * Dawn Black, OT - 02/21/2021 4:09 PM EDT Occupational Therapy Treatment Note Treatment Number OT: 2 Patient Dx:Narcisa Eduardo is a 75 y.o. male admitted on 02/18/2021 for ground level fall from standingwith +LOC. Patient presents with the following injuries: 1. ??Multiple sites of subarachnoid and intraventricular hemorrhage No significant mass effect. 2. ??Small subdural hematoma along the falx. 3. ??Interval increased size of a 1.1 cm left convexity subdural hygroma. 4.??Left periorbital soft tissue hematoma Precautions/Special Considerations: FALL, L arm/hand wound, mckeon Interval History:no acute events S: I've been better O: Patient seen for skilled OT treatment, and demonstrated the following: Pt sitting in recliner, L eye open. Able to read the clock accurately. Pt turned head to the left, Left eye and L side of body began twitching. Nursing in to assess patient. Pt recovered full speech within several moments with full recall of the episode. Pt supervision sit to stand from recliner, CGA x2 with walker recliner to bed. Pt supervision sit to supine. Pain: none Staff Communication: Patient status, treatment, and mobility recommendations discussed with nursing/other staff. ASSESSMENT: Pt seen today for continuation of OT POC. Daughter Bertha present. Limited session todayas pt suffered an apparent seizure, but recovered quickly with full recall of the incident. In speaking with daughter Bertha, plan had been for pt to return home with assist of 15/03, with home health services. Prior to the apparent seizure, Bertha stated she felt the patients was pretty mch spot on. Will continue to monitor and assess. Pt will benefit from ongoing therapeutic interventions to achieve pt's and therapy goals Equipment needs at discharge: to be determined Anticipated Discharge Disposition: to be determined pending medical status & functional progression Occupational Therapy Goals: Goals: To be achieved by 03/01/21 Pt and will demonstrate good safety with functional transfers and mobility for ADLs Pt will be supervision functional sit to stand transfers from variety of surfaces Pt will be supervision functional mobility household distances Pt will be set up for UE ADLs seated EOB Therapy Frequency (OT): 2-3 times/wk Total Minutes, Occupational Therapy: 22 Pager: [phone] Dawn Black OT 02/21/2021 Occupational Therapy Rehabilitation Department * Charleen Colby MD - 02/21/2021 3:09 PM EDT Brief Progress Note Alerted that patient had seizure and came bedside. Pt with recent trauma, fall from standing, with SAH on CT Head. Pt has a seizure history following stroke, on home lacosamide. Patient was with PT/OT when he began to have a facial twitch before onset of seizure with left gazedeviation. When bedside, patient was subdue, alert and oriented to person, place, but not time or reason for admission, without gaze deviation, able to follow commands, no pronator drift. Concern fornew left-sided facial droop. - Checked BG, repeat CT Head, spoke to neurology who recommended increasing home lacosamide to 200 mg BID and will come assess the patient. - Holding anticoagulation (planned to start tonight), pending CT Head. Charleen Colby MD 02/21/21 3:[address] 1. Decreased supratentorial and infratentorial subarachnoid hemorrhage. Intraventricular hemorrhages are stable to minimally decreased. 2. 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 5 mm [id number] midline shift is stable. 5:27 PM * Gerard Baez, RN - 02/21/2021 3:00 PM EDT Patient working with PT&OT, still in chair when was called to evaluate patient. Patient witnessed with tremors in left side of face, left gaze deviation, left upper extremity markedly tremulous, and expressive aphasia. Seizure like activity subsided after 2 minutes and patient returned to baseline neuro function within 5 minutes after initial seizure like activity noted.Team aware and at bedside. Patient transported to CT, monitored, and returned to unit by this RN. * Yanet Stokes, PT - 02/21/2021 2:51 PM EDTSummary: Limited PT/OT session r/t apparent focal Sz w/ L eye, facial and LUE twitching Physical Therapy Pt seen by PT/OT for cont assessment, training but Rx aborted after apparent focal Sz as decribed below. Will ask PT to reassess over the weekend as allowed per MDs Dtr Bertha fine t/o 02/21/21 1435 Physical Therapy Time and Intention Document Type daily note Mode of Treatment physical therapy Total Minutes, Physical Therapy 30 (neuro re-ed, fucntional activities) Patient Effort good (for getting back to bed after apparent focal Sz) Symptoms Noted During/After Treatment other (see comments) (apparent focal Sz effecting L side of face and LUE) General Information Treatment Number PT 2 AM-PAC Basic Mobility 6 Click AM-PAC Mobility 6 Click Completed? Yes Turning from your back to your side while in a flat bed w/o using handrails? 4 - None, flat bed Standing up from a chair using your arms (e.g. wheelchair, or bedside commode)? 3 - A Little to/from FWW Moving from lying on your back to sitting on the side of a flat bed w/o using bedrails? 3 - A Little out toward L side, in same side, assist of legs Moving to and from a bed to a chair (including a wheelchair) 3 - A Little, w/ FWW, close CGA and assist to move walker To walk in hospital room? 3 - A Little, not assessed today, r/t apparent focal Sz Climbing 3-5 steps with a railing?* 2 - A Lot AM-PAC Basic Mobility Raw Score 18 Basic Mobility Standardized T-Scale Score 41.05 Basic Mobility CMS 0-100% 40.47 Therapy Assessment/Plan (PT) Therapy Frequency (PT) 2-4 times/wk (at and then w/ home PT/OT, ) Plan of Care Review Plan of Care Reviewed With patient;daughter Progress (apparent focal Sz involving L eye, face and LUE) Outcome Summary PT/OT assisted w/ back to bed w/ FWW after focal Sz resolved and pt evaluated by nursing staff who will alert MDs for visit/assessment Therapy Plan Review/Discharge Plan (PT) Anticipated Equipment Needs at Discharge (PT) to be determined Anticipated Discharge Disposition (PT) home with supervision vs inpatient rehabilitation facility (15/03 of ) Patient/Family Concerns, Anticipated Discharge Disposition (PT) Dtr obviously concerned re focal Szbut still feels that he will be well taken care of at home by his (her mother) Referral Needed to Another Service (PT) home health care YANET STOKES, PT Pager # [phone] In-Pt Rehab Medicine * Jen Erickson MD - 02/21/2021 2:49 PM EDT Images from the original note were not included. General Neurology Consult Note ID: Narcisa Eduardo is a(n) 75 y.o. male w/ PMH HTN, R MCA stroke (ESUS 09/2019) complicated by post stroke epilepsy (sees Dr. 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 On ceftriaxone for Klebsiella UTI. Consult Question: breakthrough seizure Primary Team: General surgery Hospital Problem List: Active Hospital Problems Diagnosis ??? Trauma Resolved Hospital Problems No resolved problems to display. 24 Hour Events/Subjective: Witnessed seizure event today L Facial, UE twitching with expressive aphasia. Reported dysphagia w oral intake since admission. Daughter at bedside. Current Medications: Scheduled Meds: ??? lactobacillus with pectin 1 capsule Oral Daily ??? vancomycin 125 mg Oral BID ??? lacosamide 200 mg Oral BID ??? polyethylene glycoL (MIRALAX) oral powder 17 g Oral BID ??? senna-docusate 1 tablet Oral BID ??? cefTRIAXone 1 g Intravenous Q24H ??? sodium chloride 0.9 % (flush) 5 mL Intravenous BID ??? buPROPion 75 mg Oral Daily ??? acetaminophen 975 mg Oral Q6H MERCEDES ??? tamsulosin 0.4 mg Oral Daily ??? atorvastatin 80 mg Oral QPM Continuous Infusions: PRN Meds:.oxyCODONE OR oxyCODONE, sodium chloride 0.9 % (flush), lidocaine, naloxone Vitals: Last value Range last 24 hrs Temperature Temp: 36.6 ??C (97.9 ??F) Temp: [36.4 ??C (97.5 ??F)-36.7 ??C (98.1 ??F)] Heart Rate Heart Rate: 74 Heart Rate: [45-74] Blood Pressure BP: 105/87 BP: (105-149)/(69-87) Respiratory Rate Resp: 18 Resp: [18] SpO2 SpO2: 97 % SpO2: [96 %-99 %] Oxygen Delivery Oxygen Therapy O2 Device: None (Room air) Admit wt: Intake/Output Summary (Last 24 hours) at 02/21/2021 1449 Last data filed at 02/21/2021 1300 Gross per 24 hour Intake 730 ml Output 2220 ml Net -1490 ml Physical Exam: Gen: Non-distressed, lying flat Neck: Supple Resp: Normal WOB Extr: No edema or bony deformity Neuro Exam: MS: Oriented Clear language without expressive or receptive aphasia No dysarthria Follow simple and cross-body commands CN: L eye bruising, R EOMI, could not assess visual singh Hearing intact to voice Palate elevates symmetrically, tongue protrudes midline Motor: Normal bulk and tone UE: 5/5 R 5/5 L Finger extension 5/5 R 5/5 L Finger flexion 4/5 R 4/5 L Insulation Cutter And Former LE: 5/5 R 5/5 L Knee extension 5/5 R 5/5 L Knee flexion 5/5 R 5/5 L Foot dorsiflexion 5/5 R 5/5 L Foot plantar flexion Sensation: Intact to light touch Reflexes: DTRs 2+ R 2+ L Patellar Toes - R down, L down Coordination: No involuntary movements or tremors Gait: Not assessed Labs: CBC: Recent Labs 02/21/2111402/20/21115402/19/21 0040 WBC 7.3 9.2 11.4* HGB 11.9* 12.5* 12.1* HCT 36.7* 37.0* 36.7* PLATELET 103* 132* 111* NEUTROABS 5.26 7.60* 9.35* Chemistry: Recent Labs 02/21/2111402/20/21 11502/19/21 0040 NA 141 141 140 K 3.6 3.7 3.3* CL 106 106 103 CO2 27 28 30 BUN 7* 5* 4* CREATININE 0.73* 0.58* 0.67* GLUCOSE 100 116 90 ANIONGAP 8 7 7 Recent Labs 02/21/2111402/20/21115402/19/21 0040 CALCIUM 8.4* 8.4* 8.7 MAGNESIUM -- 0.74 0.73 PHOS -- 2.9 -- Coags: Recent Labs 02/18/212012 PT 11.6 INR 1.0 PTT 27 Microbiology Results (Last 30 days) Procedure Component Value Units Date/Time Urine culture [[id number]] (Abnormal) (Susceptibility) Collected: 02/18/212012 Lab Status: Final result Specimen: Clean Catch Urine Updated: 02/20/21 0955 Urine Culture Greater than 100,000 cfu/ml Klebsiella species : two morphologies Susceptibility Klebsiella species (1) Klebsiella species (2) VITEK 2 METHOD VITEK 2 METHOD Amikacin Sensitive Sensitive Ampicillin + Sulbactam Sensitive Sensitive Aztreonam Sensitive Sensitive Cefazolin Sensitive Sensitive Ceftazidime Sensitive Sensitive Ceftriaxone Sensitive Sensitive Ertapenem Sensitive Sensitive Gentamicin Sensitive Sensitive Levofloxacin Sensitive [1] Sensitive [1] Meropenem Sensitive Sensitive Nitrofurantoin Sensitive Sensitive Piperacillin/Tazobactam Sensitive Sensitive Tetracycline Sensitive Sensitive Tobramycin Sensitive Sensitive Trimethoprim/Sulfa Sensitive Sensitive [1] Levofloxacin and Ciprofloxacin may not adequately treat infections in critically ill patients even when isolates test susceptible in the laboratory. Contact Infectious Disease before using in critically ill patients. Linear View Diagnostic Tests and Imaging: CT Head & Cervical Spine wo Contrast (Generic) Result Date: 02/18/2021 1. Multiple sites of subarachnoid and intraventricular hemorrhage as detailed above. No significantmass effect. 2. Small subdural hematoma along the falx. 3. Interval increased size of a 1.1 cm leftconvexity subdural hygroma. 4. Extensive chronic dental disease associated with chronic maxillary sinus inflammation and reactive osseous changes. 5. No acute facial fractures. 6. No acute cervical sp ine fractures. Thank you for letting us participate in the care of this patient. If you are a health care provider and have any questions regarding this report, please contact the number below. For patients who have questions please contact the health continuum of care manager that requested your imaging first. head and neck 08/27/20 IMPRESSION: 1. There is a 1.1 cm subdural hematoma overlying the left cerebral hemisphere resulting in effacement of the underlying sulci, as well as the occipital and temporal horns of the left lateral ventricles. There is rightward shift of midline structures by 6 mm. Impression: ?? Narcisa Eduardo is a 75 y.o. male w/ PMH HTN, R distal MCA/R frontal CVA (ESUS 09/2019) complicated by post stroke epilepsy (sees Dr. 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 History of AED management taken from Telemedicine visit by Dr. Post Neurology at [facility] [place] on [place]/13/2021: initially put on keppra 750mg BID for witnessed focal seizure 06/2020 but that was switched to depakote for mood changes. Most recent reported, witnessed seizure 01/05/2021 after which he was admitted to [facility] and switched from depakote in November due to diarrhea - put on lacosamide 50mg BID. Per daughter at bedside, patient's witnessed patient in bed with UE flexion/rigidity and his eyes rolled in the back of his head. Similar eye movements and rigidity were described during seizure events this past Fall. After admission at [facility] patient's Vimpat increased outpatient byDrJorge A Villa to 150mg BID. Possible seizure precipitants in this patient include concurrent klebsiella UTI, recent cdiff infection potential sources of systemic stressors. Other sources include extensive dental disease on admission CTH associated with chronic maxillary sinus inflammation. Possibly increasing hygroma on repeat CTH today another potential source of seizure - Radiology read pending. Will increase home Vimpat 100 to 200mg BID. Would consider adding depakote in the case of breakthrough seizures on 200 BID vimpat as diarrhea not a commonly reported side effect of this medication.Plan and decision making processes discussed with daughter at bedside. Recommendations: - increase home Vimpat 100 to 200mg BID - post-seizure ST assessment - followup CTH - vEEG not indicated at this time - consider adding depakote in the case of breakthrough seizures on current dose of vimpat - outpatient dental visit - Neurology will sign off at this time Consult service will continue to follow patient. X Recommendations are above, please page if further consultation required. Jen Erickson MD Neurology, PGY-3 Neurology Consult Service, pager #[phone] 02/21/2021 Associated attestation - Leandro Bowen MD - 02/21/2021 7:17 PM EDT Neurology Attending Note I certify that I have seen and examined and discussed Narcisa Eduardo on 02/21/[address] Erickson, Resident Physician.. The note reflects the patient's history of presentation, subjective findings, and physical findings. The assessment and plan were formulated together in discussion and I have personally reviewed all relevant studies. Ragini Bowen MD Department of Neurology [facility] * Charleen Colby MD - 02/21/2021 1:44 PM EDT Trauma Daily Progress Note ID/Mechanism of injury:Narcisa Eduardo is a 75 y.o. Male admitted on 02/18/2021 following fall from standing for the management of Neurologic injuries (Please see below box for a complete summary of injuries) ?? 24 Hour Events: Barium swallow - cleared for regular diet, thin liquids Venous duplex - no DVT Started on ceftriaxone for Klebsiella UTI Seen by wound care Subjective: Okay overnight, no complaints Current Medications: ??? lactobacillus with pectin 1 capsule Oral Daily ??? vancomycin 125 mg Oral BID ??? polyethylene glycoL (MIRALAX) oral powder 17 g Oral BID ??? senna-docusate 1 tablet Oral BID ??? cefTRIAXone 1 g Intravenous Q24H ??? sodium chloride 0.9 % (flush) 5 mL Intravenous BID ??? buPROPion 75 mg Oral Daily ??? lacosamide 150 mg Oral BID ??? acetaminophen 975 mg Oral Q6H MERCEDES ??? tamsulosin 0.4 mg Oral Daily ??? atorvastatin 80 mg Oral QPM Vital Signs: VITALS (24hr Range): Temp Temp: [36.4 ??C (97.5 ??F)-36.7 ??C (98.1 ??F)] , HR Heart Rate: [45-74] , BP BP: (105-149)/(69-87) , RR Resp: [18] , SpO2 SpO2: [96 %-99 %] There is no height or weight on file to calculate BMI. I/O: Intake/Output Summary (Last 24 hours) at 02/21/2021 1344 Last data filed at 02/21/2021 1300 Gross per 24 hour Intake 730 ml Output 2220 ml Net -1490 ml Physical Exam: GENERAL: Awake in no acute distress, resting comfortably SKIN: Warm and dry. L orbital and periorbital ecchymosis with decreased edema, left hand with considerable abrasion, wrapped in bandage HEENT: GARRICK bilaterally. EOMs intact. Moist mucous membranes. NECK: supple CHEST/PULMONARY: No evidence of increased work of breathing or respiratory distress. Lungs clear toauscultation bilaterally. CARDIAC: S1 and S2 heard clearly. Regular rhythm, normal rate. No murmurs, rubs, or gallops. 2+ radial bilaterally. GASTROINTESTINAL: Soft, non-distended, non-tender. Normoactive bowel sounds present. EXTREMITIES: Able to move all extremities. Able to follow simple commands. NEURO: Alert and oriented to person, place, and time. Sensation intact throughout. Labs: Recent Labs 02/21/21 0115 02/20/21 1155 02/19/21 0040 02/18/212012 WBC 7.3 9.2 11.4* 10.3* HGB 11.9* 12.5* 12.1* 11.7* HCT 36.7* 37.0* 36.7* 34.8* PLATELET 103* 132* 111* 111* PT -- -- -- 11.6 INR -- -- -- 1.0 PTT -- -- -- 27 Recent Labs 02/21/21 0115 02/20/21 1155 02/19/21 0040 02/18/212012 NA 141 141 140 142 K 3.6 3.7 3.3* 3.3* CL 106 106 103 106 CO2 27 28 30 31 BUN 7* 5* 4* 5* CREATININE 0.73* 0.58* 0.67* 0.65* GLUCOSE 100 116 90 84 CALCIUM 8.4* 8.4* 8.7 8.7 MAGNESIUM -- 0.74 0.73 -- PHOS -- 2.9 -- -- Microbiology: Urine Culture Greater than 100,000 cfu/ml Klebsiella species : two morphologies,??Abnormal?? New Imaging: Venous Duplex 02/20 RIGHT: ??No evidence of lower extremity deep venous thrombosis. ?? LEFT: ??No evidence of lower extremity deep venous thrombosis. Procedures: none Problem List: Acute pain -3 lidoderm patches - tylenol 975mg q6hr SCHED - hydromorphone ?? Bowel Regimen Miralax BID ?? 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 Male admitted to the trauma service for the management of thebelow injuries. Pt is hemodynamically stable. Per speech, pt cleared for regular diet and thin liquids by barium swallo. Venous duplex showed no DVT, will start anticoagulation tonight. We will keep his mckeon in-place for his admission per his Urologist, Dr. Torres. Dr. Torres' office was informed that we are treating his klebsiella UTI. Spoke to infectious disease, given his recent history of c. difficle (within the past 6 months), we will prescribe PO vanco while he receives an antibiotic and for 7 additional days thereafter. Plan: Traumatic Injuries: Traumatic Injuries: Injury Intervention Follow-up BRAIN: ?? NSGY: -NC q2 -no need for additional imaging -BP control, keep SBP<160 -Hold anticoagulation/antiplatelets, SCDs while in bed for DVT ppx? Neuro - continue home lacosamide for seizure ppx NSGY: TBD 2 weeks for repeat head CT ?? Concussion f-u with PCP For Mild TBI f-u with PCP in 4 weeks FACE: L soft tissue hematoma ?? TRAUMA Monitor ? SKIN (lacerations, abrastions): ?? TRAUMA Standard wound care ?? Would care for L hand wound TRAUMA Follow up coordinated with other appointments ? Acute in hospital issues: Acute pain -3 lidoderm patches - tylenol 975mg q6hr SCHED - oxycodone 5 - 10 mg ?? Bowel Regimen Miralax BID Senna ?? LBM: AIDS SOCIAL WORKER ?? Resolved in hospital issues: none Chronic health conditions: Urinary Retention - per his urologist, Dr. Torres. 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 Secondary Stroke Prevention Atorvastatin 80 mg Anxiety Bupropion 5 mg BID Fluids/Electrolytes: Tolerating PO Diet: Regular diet Activity status: Activity As Tolerated Spine status: No spinal injuries noted Pulmonary toilet: Encourage frequent mobilization, IS use, titrate O2 >90 DVT PPX: SCDs, Held due to: held for 72 hours after Neuro trauma will start sq heparin tonight GI PPX: Not indicated, tolerating diet Lines/Tubes/Drains: PIV, mckeon Consults (Please see solution consultant notes): PT/OT Dispo: TBD,CRC working on dispo plan Status: Floor Incidental Findings: Complex cystic lesion in the left interpolar kidney measuring 3.8 cm, indeterminate, recommend further characterization with ultrasound. [x]? Incidental Findings Form Completed Charlene Colby MD 02/21/2021 Trauma pager [phone] * Mamta Jaquez RN - 02/20/2021 6:08 PM EDT OUTCOME EVALUATION NOTE: OUTCOME SUMMARY: No acute events or changes in exam this shift. Hemodynamically stable, afebrile. Downgraded to floor status. Ceftriaxone initiated for UTI. See wound RN note for recommendations regarding left hand wound. Daughter attentive at bedside. PLAN MOVING FORWARD: Mobilize Discharge planning * Davy Sierra SLP - 02/20/2021 12:29 PM EDT Speech Therapy Modified Barium Swallow Evaluation Patient Profile: Narcisa Eduardo is a 75 y.o. male with a past medical history significant for R MCA stroke (ESUS, Sep 2019) c/b seizure disorder, L SDH s/p MMA embolization (Aug 2020), follicular lymphoma in remission, and prostate cancer s/p radiation admitted on 02/18/2021 In transfer from [facility] for fall from standing. . ?? Injuries from fall: 1. ??Multiple sites of subarachnoid and intraventricular hemorrhage as detailed above. No significant mass effect. 2. ??Small subdural hematoma along the falx. 3. ??Interval increased size of a 1.1 cm left convexity subdural hygroma. 4.??Left periorbital soft tissue hematoma ?? Prior Level of Swallow Function: -Unclear swallow history. Pt states he has had some progressive swallowing difficulties the past several weeks. He continues to consume regular solids and thin liquids at home. He was being followed by a THERMIT WELDING MACHINE OPERATOR who he states was considering thickening his liquids. Denies having a MBS. Reports difficulty initiating a swallow. THERMIT WELDING MACHINE OPERATOR taught him to put downward pressure with cold spoon to bottom lip. Having difficulty with pills. RN received in report that Pt takes his medications whole in maple syrup at home. Subjective: Pt reports using cold stimulation technique to initiate his swallow with pills as educated by his previous therapist. He takes a teaspoon dipped in ice and rubs it in his posterior oral cavity, places pill in his mouth, and then takes with ice water. Pt is not happy with his soft diet. Wants to be eating regular solids for quality of life. Does not want his liquids thickened if he do esn't have to. Objective: Pt seen for evaluation today. Radiologist was present for entire study. Pain: Pt. Reports left hand pain 4/10. Not enough to take a tylenol. When nursing tried to address pain. Current Diet: Dysphagia Soft Diet Feeding / Oral Care Status: Pt requires cues and / or assistance Respiratory: Room air Cognitive-Linguistic Status: alert, oriented to person, place, and time;Decreased safety awareness;Decreased safety awareness; Poor medical laboratory technicians; Positioning: Sitting in Haustead chair at approximately 85 degrees hip flexion. Oral / Laryngeal Mechanism Clinical Assessment: ?? Lingual: Tongue protrudes midline. Adequate appearing ROM in all planes. ?? Labial / Buccal: Lip abrasion. Left side of lip swollen. Difficult to ascertain symmetry. Protrusion/retraction present. Adequate appearing labial seal. ?? Velar: Elevation/retraction present. Appears symmetric. ?? Sensation: Intact per Pt report. ?? Vocal fold function and airway protection: Volitional cough appears strong. ?? Speech Intelligibility: Speech intelligibility intact at the conversational level. ?? Mucosa: Appears moist. ?? Dentition: Missing some dentition; Poor dental hygiene; Loose dentition upper midline from fall Bolus Presentation(s): (all mixed with Barium) ?? Thin liquid via spoon, via cup, via straw ?? Puree ?? Dysphagia soft ?? Regular solid ?? Pills Oral Preparatory Phase Adequate lip closure No anterior loss from oral cavity Piecemeal deglutition with liquids inconsistently which can be considered a normal variant for age Increased mastication time with regular solids Difficulties Revealed: Poor bolus cohesion with premature spillage over posterior oral tongue Tongue pumping with all consistencies Delay in oral transit time across all consistencies Holds bolus in oral cavity inconsistently with thin liquids; Appears greater with larger sips Holding pill in oral cavity; Eventually expectorated pill and liquid Pharyngeal Phase: No episodes of aspiration during assessment Laryngeal elevation and excursion present Epiglottic inversion present Swallow triggered at the vallecula spaces with teaspoon sip of thin, pureed solids, dysphagia soft solids, and regular solids which is considered a normal variant for age Flash penetration occurred 1x on large sip of thin liquid via straw; Penetration that dose not touch the vocal cords is considered a normal variant Minimal vallecular residue / stasis with regular solid which is considered a normal variant; Cleared with subsequent swallow of liquid Difficulties Revealed: (Lateral View) Premature spillage with all solid trials to the level of the vallecula and with straw sips of thin liquids to the level of the vallecula or pyriform sinuses; One episode of prolonged pooling into the pyriform sinus with large straw sip and subsequent swallow once the remainder of bolus is at the level of the pyriforms Esophageal Phase: Normal relaxation of upper esophageal sphincter Modifications Attempted: Chin tuck resulted in flash trace penetration Liquid assist cleared vallecula residue Aspiration / Penetration Scale Score (Beto Paul et al. Dysphagia, 111995) 1 = no material enters the airway 2 = material enters the airway, does not touch the vocal cords, and is completely ejected 3 = material enters the airway, does not touch the vocal cords, but is not ejected 4 = material enters the airway, contacts the vocal cords, but is ejected 5 = material enters the airway, contacts the vocal cords, but is not ejected 6 = material enters the airway, passes below the vocal cords, and is ejected 7 = material passes below the vocal cords, is not ejected, but there is effort made to expel material 8 = material passes below the vocal cords, and there is no attempt to eject it Education: Pt has been educated on results and recommendations, and verbalized understanding. Unclear if Pt will be able to recall and carryover recommendations. Patient status, treatment and swallowrecommendations were communicated to primary team. Assessment: Modified barium swallow study completed. Pt presents with a mild oropharyngeal phase dysphagia characterized by decreased bolus manipulation/formation/control, decreased oral transit time, oral holding, and decreased/delayed pharyngeal initiation. Oral phase deficit result in pre-spillage of solids and with cup and straw sips of thin liquids. Pt demonstrated oral holding and was not able to initiate a swallow with pill administered with liquid. Recommend regular solids and thin liquids with aspiration precautions and swallowing modifications in place. Recommend supervision given Pt's decreased deficit and safety awareness and impulsivity for now. Pt would benefit from skilled THERMIT WELDING MACHINE OPERATOR services to maximize swallow function and safety while in the hospital and to address limitations as noted above. Diagnosis: Mild oropharyngeal phase dysphagia Recommendations: Diet: Regular solids, Thin liquids; Add extra sauces/gravies to assist with bolus formation/control/coordination as needed PO medications: whole with liquid as able with small single sip; crushed in bite of puree with approval from pharmacist as Pt states he chews pills when administered whole with purees; Aspiration precautions: ?? One to one direct supervision during all PO intake to ensure feeding strategies are followed ?? Needs verbal cues to use recommended strategies ?? Upright position during meals and for at least 30 mins following ?? Small sips and bites while eating ?? Slow rate; swallow between bites ?? Multiple swallows: Additional dry swallows as needed ?? Alternate liquids and solids ?? Check oral cavity frequently for pocketing ?? Excellent oral care ?? Speech Therapy Goals: (To be met by discharge) Pt will tolerate least restrictive diet without evidence of dysphagia / aspiration. Pt / caregiver will be independent with aspiration precautions, diet modifications, and safe swallowing strategies. Plan: Therapy Frequency (THERMIT WELDING MACHINE OPERATOR Eval): 1-3 times/wk Pt. in agreement with treatment plan. Total Minutes (Speech Language Pathology): 57 Thank you for this consult with this patient. Please feel free to page me with any questions or concerns. Davy Sierra MS, [facility]-THERMIT WELDING MACHINE OPERATOR Pager: [phone] Speech-Language Pathology Inpatient Rehabilitation Department * Charleen Colby MD - 02/20/2021 11:16 AM EDT Trauma Daily Progress Note ID/Mechanism of injury:Narcisa Eduardo is a 75 y.o. Male admitted on 02/18/2021 following fall from standing for the management of Neurologic injuries (Please see below box for a complete summary of injuries) ?? 24 Hour Events: TERT completed CESAR, CTA performed Assessed by speech therapy Subjective: Okay overnight, expresses he does not want his mckeon removed. Current Medications: ??? barium sulfate 30 mL Oral Once ??? barium sulfate 20 mL Oral Once ??? barium sulfate 700 mg Oral Once ??? [COMPLETED] barium sulfate 700 mg Oral Once ??? barium sulfate 30 mL Oral Once ??? barium sulfate 50 mL Oral Once ??? barium sulfate 50 mL Oral Once ??? [COMPLETED] barium sulfate 350 mL Oral Once ??? sodium chloride 0.9 % (flush) 5 mL Intravenous BID ??? buPROPion 75 mg Oral Daily ??? lacosamide 150 mg Oral BID ??? acetaminophen 975 mg Oral Q6H MERCEDES ??? tamsulosin 0.4 mg Oral Daily ??? atorvastatin 80 mg Oral QPM Vital Signs: VITALS (24hr Range): Temp Temp: [36.2 ??C (97.2 ??F)-36.6 ??C (97.9 ??F)] , HR Heart Rate: [47-61] , BP BP: (123-149)/(60-70) , RR Resp: [17-20] , SpO2 SpO2: [95 %-99 %] There is no height or weight on file to calculate BMI. I/O: Intake/Output Summary (Last 24 hours) at 02/20/2021 1151 Last data filed at 02/20/2021 0900 Gross per 24 hour Intake 3417 ml Output 3400 ml Net 17 ml Physical Exam: GENERAL: Awake in no acute distress, resting comfortably SKIN: Warm and dry. L orbital and periorbital ecchymosis with decreased edema, left hand with considerable abrasion, wrapped in bandage HEENT: GARRICK bilaterally. EOMs intact. Moist mucous membranes. NECK: supple CHEST/PULMONARY: No evidence of increased work of breathing or respiratory distress. Lungs clear toauscultation bilaterally. CARDIAC: S1 and S2 heard clearly. Regular rhythm, normal rate. No murmurs, rubs, or gallops. 2+ radial bilaterally. GASTROINTESTINAL: Soft, non-distended, non-tender. Normoactive bowel sounds present. EXTREMITIES: Able to move all extremities. Able to follow simple commands. NEURO: Alert and oriented to person, place, and time. Sensation intact throughout. Labs: Recent Labs 02/19/21 0040 02/18/212012 WBC 11.4* 10.3* HGB 12.1* 11.7* HCT 36.7* 34.8* PLATELET 111* 111* PT -- 11.6 INR -- 1.0 PTT -- 27 Recent Labs 02/19/21 0040 02/18/212012 NA 140 142 K 3.3* 3.3* CL 103 106 CO2 30 31 BUN 4* 5* CREATININE 0.67* 0.65* GLUCOSE 90 84 CALCIUM 8.7 8.7 MAGNESIUM 0.73 -- Microbiology: Urine Culture Greater than 100,000 cfu/ml Klebsiella species : two morphologies,??Abnormal?? New Imaging: CTA 02/19/21 RIGHT: A thin layer of circumferential plaque is present in the common carotid artery causing minimal stenosis. There is bulky irregular plaque in the proximal internal carotid artery causing 16-49% stenosis when compared to the more distal internal carotid artery. The bifurcation level is in the mid neck. ?? LEFT: A thin layer of circumferential plaque is present in the common carotid artery causing minimal stenosis. There is irregular plaque in the proximal internal carotid artery causing <15% stenosis when compared to the more distal internal carotid artery. The bifurcation level is in the mid neck. CESAR 02/19/21 1. The left ventricular chamber size is [...] There is no evidence of aortic regurgitation. Procedures: none Problem List: Acute pain -3 lidoderm patches - tylenol 975mg q6hr SCHED - hydromorphone ?? Bowel Regimen Miralax BID ?? 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 Male admitted to the trauma service for the management of thebelow injuries. Pt is hemodynamically stable. Imaging from yesterday does not show valvular disease or cardiac disease and CTA does not show occulusion or dissection that would contribute to his fall. Pt swallowing will be assessed by barium swallow today. Venous duplex study ordered, will plan to start dvt ppx at72 hours. He was seen by his Urologist on Wednesday, 02/18 who recommended 1 month of urinary catheterization before further retention studies. Will keep his mckeon in place. Urine culture positive for Klebsiella,will treat with IV ceftriaxone for 7 days (conversion to PO abx at discharge). Plan: Traumatic Injuries: Traumatic Injuries: Injury Intervention Follow-up BRAIN: ?? NSGY: -NC q2 -no need for additional imaging -BP control, keep SBP<160 -Hold anticoagulation/antiplatelets, SCDs while in bed for DVT ppx? Neuro - continue home lacosamide for seizure ppx NSGY: TBD 2 weeks for repeat head CT ?? Concussion f-u with PCP For Mild TBI f-u with PCP in 4 weeks FACE: L soft tissue hematoma ?? TRAUMA ?? Monitor ? SKIN (lacerations, abrastions): ?? TRAUMA Standard wound care ?? Would care for L hand wound TRAUMA Follow up coordinated with other appointments ? Acute in hospital issues: Acute pain -3 lidoderm patches - tylenol 975mg q6hr SCHED - oxycodone 5 - 10 mg ?? Bowel Regimen Miralax BID Senna ?? LBM: AIDS SOCIAL WORKER ?? Resolved in hospital issues: none Chronic health conditions: Urinary Retention - per his urologist, Dr. Torres. 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 Secondary Stroke Prevention Atorvastatin 80 mg Anxiety Bupropion 5 mg BID Fluids/Electrolytes: Tolerating PO Diet: Dysphagia Soft Diet Activity status: Activity As Tolerated Spine status: No spinal injuries noted Pulmonary toilet: Encourage frequent mobilization, IS use, titrate O2 >90 DVT PPX: SCDs, Held due to: held for 72 hours after Neuro trauma GI PPX: Not indicated, tolerating diet Lines/Tubes/Drains: PIV, mckeon Consults (Please see solution consultant notes): PT/OT Dispo: TBD,CRC working on dispo plan Status: Floor Incidental Findings: Complex cystic lesion in the left interpolar kidney measuring 3.8 cm, indeterminate, recommend further characterization with ultrasound. []? Incidental Findings Form Completed Charleen Colby MD 02/20/2021 Trauma pager [phone] * Joana Portillo RN - 02/19/2021 6:28 PM EDT Illness Severity [x] Stable [] Watcher [] Unstable Patient Summary Reason for admission: Admitted for SDH. Pt had a ground level fall after an appointment with his PCP for urinary retention. Pt was then picked up by [facility], brought to [facility] and was found to have a SDH. [place] [facility] [place]. On admission, no facial fractures orcervical spine fractures found. Spine/bracing precautions d/c. Relevant PMH: Seizures, stroke, non-hodgkins lymphoma, prostate CA, thoracic AAA ED Tasks: [x] Personal belongings/medications - home Vimpat counted, in security bag. Given to to take home. [x] CT [x] X-Ray [x] Labs [x] Urine Significant 24 hour events: Pt had carotid duplex at bedside, PT/OT/ST, and daughter here thisafternoon. Pt's home vimpat given to to take home. 02/18p - Pt admitted to [facility] A+Ox4, multiple wounds/abrasions most remarkably his L hand which was dressed in ED by Trauma service. No neuro changes overnight. Neuro: Q2 Neuro exam: A+Ox4, R pupil +2 and reactive (L eye swollen shut), strengths 5/5 except for 4/5 LUE d/t injury. No numbness or tingling. Drains: Mckeon (placed at OSH). CV: VS Q4. SR/SB 45-80 Resp: Coarse/dim (smoker 20yrs) GI: dysphasia soft diet, delayed swallow, takes pills whole : Ongoing issue w/urinary retention. Mckeon in place. Pt under the care of outpt urology. Do not remove mckeon. Heme/ID: n/a Skin: L eye bruised and swollen shut. L eyebrow lac. Bilateral knee and L shoulder abrasions. Upperlip lac. L top of hand lac/skin tear, dressed by Trauma 02/18 in ED. Blanchable but discolored sacrum. Social: Kinue () Action List Mobility goals: PT/OT. Pt OOB to chair, or for BMs. Patient education: Educate on POC. Serial Labs: AM labs, Lacosamide level. Other: -modified barium swallow study Wound care consult - Situational Awareness & Contingency Planning (If/Then) If changes in neuro status, contact Trauma (neuro consulted) Synthesis (Verbal Only) (Brief summary, ask questions, restate barillas action/to do items) Summary (OLD) To Do (OLD) * Epifanio Ward MSW - 02/19/2021 5:56 PM EDT BRIDGE OPERATOR met with pt while his spouse and dtr were visiting. Remediation Technician was following up from his conversation with Dr. Reese regarding identifying available resources for adult day programs. Remediation Technician provided pt with a list of programs in his geographic area. Pts dtr also noted that she is willing to adjust her work schedule to allow her to visit pt more frequently throughout the week. Pts spouse also mentioned having some friends who have a nursing background and she will be inquiring on their availability. Remediation Technician provided pt/family with my contact information and will remain available throughout pts dispo * Linnea Muhammad PA - 02/19/2021 5:34 PM EDT Brief Neurosurgery Progress Note Narcisa Eduardo is a 75 y.o. male with PMH of HTN, non-Hodgkin's lymphoma, CVA [distal MCA occlusion/RIGHT frontal infarct], history of aneurysm s/p embolization, seizures [on lacosamide - last seizure was 01/05/2021] who presented in transfer from [place] ED for evaluation and management of injuriessustained in a fall. Found to have tSAH, parafalcine SDH and LEFT subdural hygroma, which are stable on repeat imaging.He is neurologicaly at his baseline. Plan: - Neuro Checks: Q4hr (Floor status). At time of discharge, patient no longer needs neuro checks. - Goal SBP 90-160 - Diet: Regular diet as tolerated - DVT PPx: SCDs to bilateral LE's. OK to start SQ heparin 72 hours from admit. - AEDS per Neurology - Activity as tolerated - OK for discharge from Neurosurgery's perspective - Patient neurosurgery discharge instructions have been added - We will arrange follow-up in Neurosurgery Clinic in [address] CT (ordered). - Remainder of care per Trauma - Neurosurgery is signing off Please page Neurosurgery 2020 with questions. RASHIDA MoctezumaC * Elaina Johnson Joellen, PT - 02/19/2021 2:15 PM EDTSumemma: Recommend rehab placement Physical Therapy Evaluation Patient profile: Narcisa Eduardo is a 75 y.o. male admitted on 02/18/2021 for ground level fall from standing with +LOC. Patient presents with the following injuries: 1. ??Multiple sites of subarachnoid and intraventricular hemorrhage No significant mass effect. 2. ??Small subdural hematoma along the falx. 3. ??Interval increased size of a 1.1 cm left convexity subdural hygroma. 4.??Left periorbital soft tissue hematoma Patient with the following active problems: Past Medical History: Diagnosis Date ??? AAA [...] [address] [facility] Dr Ko ??? PROSTATE BIOPSY 11/23/2019 Social History: Patient is somewhat of poor historian. Reports he lives with his (Myah phonetically) in asingle level house with 4 sets of stairs to enter. Sleeps in a regular bet but does have reclinerchair if needed. Typically ambulates without AD but sometimes his holds onto his shirt. He denies other hx of falls, but does endorse frequent admissions to [facility] recently, and one stint at rehab. He has a fear of falling/fear of use of walkers (reports they are going to run away on him) He reports assists PRN with hygiene, toileting, ADLs and all IADLs. Precautions/Special Considerations: Fall risk, SBP <160, PIV, VENETIE IRA, activity as tolerated Mobility and Positioning Recommendations: ?? Pt. to utilize x2 min handhold assistance (no device), gait belt, for ambulation and transfers with nursing. ?? Please encourage up to chair for meal times as able. ?? Can ambulate into bathroom for toileting ?? Pt has strong dislike for walkers Subjective: ???I take it easy?? Objective: Pt seen for initial evaluation today. Pain: Number Location At rest None With activity ouch! When touching abrasions to bilateral knees, when touching L hand Vital Signs: At Rest With Activity SpO2 (RA) 99% 98% BP (MAP) 132/70mmHg 132/72mmHg HR 57bpm 60bpm Mental Status: alert, oriented to person, place, and time but slightly wifty, decr short term memory, poor insight and safety awareness Vision: able to see out of L eye but prefers to keep closed due to edema present Skin: large ecchymosis to L orbit, abrasions to bilateral knees - open to air. Covered wound to L hand/wrist/forearm Musculoskeletal: ROM: WFLS Strength: WFLs Sensation: appearing intact Bed Mobility: Supine to Sit: HOB elevated, incr time and effort, min assistance Sit to Supine: N/A pt left OOB to chair Transfers: Sit to Stand: min assistance x2 initially, progressed to CGA without AD Stand to Sit: CGA with use of UEs Bed to Chair: min assistance x2 with handhold assistance, gait belt, stand step Other: N/A Gait: Distance: ambulated into bathroom and out to chair approx 15 feet Device Used: x2 handhold, gait belt Level of Assist: Min assistance, additional for line management Gait Comments: small shuffled steps, decr clearance bilaterally, declined use or trial of walker Stairs: YUNIER Balance: Sitting Static: good Sitting Dynamic:fair Standing Static: fair Standing Dynamic / Gait: Poor Self Care: Se OT note for details Education: patient educated on role of therapy, use of AD, safety, bed mobility, transfers, gait belt, ongoingmobility, use of call light, and discharge planning, with poor understanding/demonstration. Patient status, treatment, and mobility recommendations discussed with nursing. Assessment: Narcisa Eduardo was seen today for physical therapy evaluation. Pt presented with physicalimpairments of fatigue, balance, gait, activity tolerance, safety, and cognition, which are currently contributing to functional limitations. Pt alert and oriented, though cognitively with some impairments noted. Pt somewhat of a poor historian, and with contradicting statements. Pt able to stand and ambualte short distances into bathroom/in room today, though needing 2-person handhold assistancefor safety. PT poses as significant fall risk, but remains hesitant to utilize an assistive device.Currently, recommend pt receive ongoing skilled therapy in an inpt rehab facility, especially if does not have 24/7 care at home. Pt will benefit from skilled therapy services throughout hospitalization to promote safety, independence, and provide developmental support/caregiver education. Discharge Recommendations: Based on the current findings, Anticipated Discharge Disposition (PT): inpatient rehabilitation facility when medically ready for hospital discharge. Discharge recommendation is based on the patient's current physical impairments, prior functional status, potential to return to prior level of function, patient motivation, reported home support, potential for functional gains, current level of endurance, reported home environment and anticipated trajectory of progress and may change based on patient progress during this hospitalization. Consult Recommendations: No other consults recommended at this time. Equipment Needs: Anticipated Equipment Needs at Discharge (PT): to be determined Transportation Needs: TBD Cleared Physical Therapy? No - recommend rehab Goals: To be achieved by 03/12/21: 1. Pt. to demonstrate knowledge of safety limitations and precautions 2. Pt. to demonstrate understanding of appropriate exercises. 3. Pt. to perform bed mobility from flat with supervision assistance 4. Pt. to perform all transfers with supervision and least restrictive device 5. Pt. to ambulate 150 feet with supervision and least restrictive assistive device 6. Pt. to ambulate up/down stairs as needed to enter/exit home, per home set up, with CGA Plan: Therapy Frequency (PT): 2-4 times/wk for therapy including balance training, bed mobility training, gait training, home exercise program, patient/family education, stair training and transfer training. Patient/family understand and agree with plan as stated above. 2017 PT Evaluation Code Rationale: ?? Diagnosis & Pertinent Co-Morbidities, personal factors, and present illness affecting Plan of Care: (see above); Additional personal factors or co- morbidities that impact plan: ?? Total # of Factors: (CVAs, seizures, lymphoma, cognition, hospitalizations, c diff recently) 0 1-2 3+ x ?? Examination of body system impairments, functional limitations and behaviors, and/or participation restrictions. Addressing 1-2 elements Addressing 3 + elements Addressing 4 + elements x ?? Clinical presentation: See assessment above. (cognition, fatigue) Stable/Uncomplicated Evolving/Fluctuating Symptoms Unstable/Unpredictable x ?? Clinical decision making of moderate complexity based on pt's functional performance as outlinedin this evaluation. Time IN / OUT: 5239-2458 Total Minutes, Physical Therapy: 45 (Eval) Thank you for this consult. Elaina Johnson, PT Pager: [phone] Physical Therapy Inpatient Rehabilitation Department * Davy Sierra, THERMIT WELDING MACHINE OPERATOR - 02/19/2021 11:46 AM EDT Speech Therapy Bedside Swallow Evaluation Patient Profile: Narcisa Eduardo is a 75 y.o. male with a past medical history significant for R MCA stroke (ESUS, Sep 2019) c/b seizure disorder, L SDH s/p MMA embolization (Aug 2020), follicular lymphoma in remission, and prostate cancer s/p radiation admitted on 02/18/2021 In transfer from [facility] for fall from standing. . Injuries from fall: 1. ??Multiple sites of subarachnoid and intraventricular hemorrhage as detailed above. No significant mass effect. 2. ??Small subdural hematoma along the falx. 3. ??Interval increased size of a 1.1 cm left convexity subdural hygroma. 4. Left periorbital soft tissue hematoma Prior Level of Swallow Function: -Unclear swallow history. Pt states he has had some progressive swallowing difficulties the past several weeks. He continues to consume regular solids and thin liquids at home. He was being followed by a THERMIT WELDING MACHINE OPERATOR who he states was considering thickening his liquids. Denies having a MBS. Reports difficulty initiating a swallow. THERMIT WELDING MACHINE OPERATOR taught him to put downward pressure with cold spoon to bottom lip. Having difficulty with pills. RN received in report that Pt takes his medications whole in maple syrup at home. Subjective: Pt states he is hungry. States he doesn't realize he is pocketing. Worried about his front tooth. Thought he lost it one time with chewing solids. Objective: Pt seen for evaluation today. Pain: Denies pain. Respiratory Status: Room air Vision: Sometimes uses glasses for distance per Pt Hearing: Hearing impairment, unaided; Doesn't like hearing aids d/t noise Current Diet: Regular solids and thin liquids Feeding Status: Pt requires cues and / or assistance Dependent for Oral Care? Will need assistance Cognitive-Linguistic Status: alert, oriented to person, place and situation; Decreased safety awareness; Decreased safety awareness; Poor medical laboratory technicians; Perseveration; Impulsive Follows Commands: Follows multi-step commands Positionin degrees Oral / Laryngeal Mechanism Clinical Assessment: ?? Lingual: Tongue protrudes midline. Adequate appearing ROM in all planes. ?? Labial / Buccal: Lip abrasion. Left side of lip swollen. Difficult to ascertain symmetry. Protrusion/retraction present. Adequate appearing labial seal. ?? Velar: Elevation/retraction present. Appears symmetric. ?? Sensation: Intact per Pt report. ?? Vocal fold function and airway protection: Volitional cough appears strong. ?? Speech Intelligibility: Speech intelligibility intact at the conversational level. ?? Mucosa: Appears moist. ?? Dentition: Missing some dentition; Poor dental hygiene; Loose dentition upper midline from fall Bolus Presentation(s) ?? Ice chips ?? Thin liquid via spoon, via cup, via straw ?? Puree ?? Dysphagia soft ?? Regular solid Oral Preparatory Phase ?? Mastication: Mildly increased mastication time with dysphagia soft solids. Prolonged masticationwith regular solid. ?? Oral Transit: Appears delayed with liquid consistency; Held liquid 1x for 58 seconds; Holding ofliquids appears greatest with large sip ?? Bolus Cohesion: Decreased bolus cohesion with dysphagia soft solids and regular solids; Greatestwith regular solids ?? Labial Seal / Loss: Appropriate seal. Negative for loss. ?? Oral Stasis: Left sided pocketing 20% of the time with dysphagia soft solids; Left sided pocketing 100% of the time with regular solids Pharyngeal Phase ?? Laryngeal Elevation: Present to palpation. ?? Vocal quality change: Negative. ?? Cough / throat clear: Cough with regular solids. ?? Pt. complaint of food getting stuck: Negative ?? Fatigue across trials: No ?? Respiratory rate and respiratory swallow pattern: Negative for changes. Esophageal Phase ?? No overt clinical s/s of esophageal phase dysphagia noted during this evaluation. Compensatory Techniques: Thin liquid was effective in clearing dysphagia soft solid. Multiple liquid washes and lingual sweep were needed to clear regular solid. Education: Patient educated on results and recommendations, and verbalized understanding. Unclear if Pt will be able to retain this information. Patient status, treatment and swallow recommendations were discussed with nursing and MD Assessment: Bedside swallow evaluation completed. Pt with unclear recent dysphagia and being followed by an outside THERMIT WELDING MACHINE OPERATOR. In the process of trying to obtain more information from as Pt is a poor historian. Pt presents with an oral phase characterized by decreased appearing oral transit time with liquids and increased mastication time and decreased bolus coordination with solids. Decreased appearing bolus awareness as pocketing is present and Pt is unaware. Question pharyngeal phase deficitssecondary to overt s/s of penetration/aspiration with regular solids. Pt required maximum cues to prevent from stuffing and to clear pocketed material. Recommend dysphagia soft solids and thin liquids with aspiration precautions and swallowing modifications in place. Recommend MBS to further evaluate swallow function secondary to swallowing function at bedside and reports that previous THERMIT WELDING MACHINE OPERATOR was considering placing Pt on thickened liquids. MBS is tentatively scheduled for 11:00 on 02/20/21. RN to discuss swallowing history with Pt's as she is on route and contact THERMIT WELDING MACHINE OPERATOR with any concerns. Diagnosis: Oral phase dysphagia; Question pharyngeal phase deficits Recommendations: Diet: Dysphagia soft, Thin liquids PO medications: Whole with thin liquids; Cut in half as needed with approval from pharmacist; If not able to tolerate recommend crushed in bite of puree with approval from pharmacist as Pt states he chews his medication when administered this way. Aspiration precautions: One to one direct supervision during all PO intake to ensure feeding strategies are followed Reduce environmental distractions Needs verbal cues to use recommended strategies Upright position during meals and for at least 30 mins following Small sips and bites while eating Slow rate; swallow between bites Alternate liquids and solids Check oral cavity frequently for pocketing Excellent oral care Pt will benefit from continued THERMIT WELDING MACHINE OPERATOR services while hospitalized; Anticipate Pt will require THERMIT WELDING MACHINE OPERATOR services in discharge setting Speech Therapy Goals: (To be met by discharge) Pt will tolerate least restrictive diet without evidence of dysphagia / aspiration. Pt / caregiver will be independent with aspiration precautions, diet modifications, and safe swallowing strategies. Plan: Therapy Frequency (THERMIT WELDING MACHINE OPERATOR Eval): 2-4 times/wk Pt. in agreement with treatment plan. Total Minutes (Speech Language Pathology): 49 Thank you for this consult with this patient. Please feel free to page me with any questions or concerns. Davy Sierra, MS, [facility]-THERMIT WELDING MACHINE OPERATOR Pager: [phone] Speech-Language Pathology Inpatient Rehabilitation Department * Rao Morrow - 02/19/2021 10:51 AM EDT General Neurology Consult Note ID: Narcisa Eduardo is a(n) 75 y.o. male w/ PMH HTN, prostate cancer s/p radiation, follicular lymphoma in remission, alcohol use disorder (abstinent since stroke in Sep 2019), current tobacco use (1PPD), R MCA stroke (ESUS) in Sep 2019 c/b post-stroke epilepsy (on Vimpat 150mg BID since November following with Dr. Villa), subdural hemorrhage in Aug 2020 s/p L MMA embolization who presents following a fall with LOC and trauma to his left head found to have subarachnoid and intraventricular hemorrhage, now HD 1. Consult Question: seizure medication management Primary Team: Trauma Surgery Hospital Problem List: Active Hospital Problems Diagnosis ??? Trauma Resolved Hospital Problems No resolved problems to display. 24 Hour Events/Subjective: - NAOE - Denies any CP, SOB, F/C, N/V, urinary incontinence ([place] in), bowel incontinence, numbness or tingling - On home lacosamide 15mg BID for seizure ppx Current Medications: Scheduled Meds: ??? sodium chloride 0.9 % (flush) 5 mL Intravenous BID ??? lacosamide 150 mg Oral BID ??? famotidine 20 mg Oral BID Or ??? famotidine 20 mg Intravenous BID ??? acetaminophen 975 mg Oral Q6H MERCEDES ??? tamsulosin 0.4 mg Oral Daily ??? atorvastatin 80 mg Oral QPM Continuous Infusions: ??? lactated Ringers 100 mL/hr (02/19/21 0028) PRN Meds:.sodium chloride 0.9 % (flush), lidocaine, naloxone, HYDROmorphone Vitals: Last value Range last 24 hrs Temperature Temp: 36.6 ??C (97.9 ??F) Temp: [36.4 ??C (97.5 ??F)-36.7 ??C (98.1 ??F)] Heart Rate Heart Rate: 54 Heart Rate: [51-65] Blood Pressure BP: 139/71 BP: (115-158)/(59-89) Respiratory Rate Resp: 17 Resp: [12-22] SpO2 SpO2: 98 % SpO2: [94 %-99 %] Oxygen Delivery Oxygen Therapy O2 Device: None (Room air) Admit wt: Intake/Output Summary (Last 24 hours) at 02/19/2021 1142 Last data filed at 02/19/2021 0400 Gross per 24 hour Intake 0 ml Output 1200 ml Net -1200 ml Physical Exam: Gen: VSS, afebrile, L periorbital ecchymosis. Sitting up in bed and conversant Neck: Stiff with movement Resp: Normal WOB Extr: Bilateral pitting edema to shins, L forearm abrasion wrapped in bandage Neuro Exam: MS: A&O to name, place, year - not to day of week (said ) or month (said February) Clear language without expressive or receptive aphasia No dysarthria Able to repeat and name objects Follows simple and cross-body commands CN: (L eye swollen shut so exam deferred on left eye) PERRL, EOMI, visual singh full Facial sensation intact, no facial asymmetry Hearing intact to voice Palate elevates symmetrically, tongue protrudes midline SCM and trap strength intact Motor: Normal bulk and tone. No pronator drift b/l UE: 5/5 R 5/5 L Arm abduction at shoulder 5/5 R 5/5 L Elbow extension 5/5 R 5/5 L Elbow flexion 5/5 R 5/5 L Wrist extension 5/5 R 5/5 L Wrist flexion 5/5 R 5/5 L Finger extension 5/5 R 5/5 L Finger flexion 5/5 R 5/5 L Insulation Cutter And Former 5/5 R 5/5 L APB LE: 5/5 R 5/5 L Hip flexion 5/5 R 5/5 L Knee extension 5/5 R 5/5 L Knee flexion 5/5 R 5/5 L Foot dorsiflexion 5/5 R 5/5 L Foot plantar flexion Sensation: Intact to light touch, temperature, and vibration throughout Reflexes: DTRs 2+ R 2+ L Biceps 2+ R 2+ L Brachioradialis 2+ R 2+ L Triceps 3+ R 2+ L Patellar 2+ R 2+ L Achilles tendon Toes - R down, L up Coordination: Finger to nose smooth and symmetric Finger tapping smooth and symmetric No involuntary movements or tremors Gait: Not assessed - in bed Labs: CBC: Recent Labs 02/19/21 0040 02/18/212012 WBC 11.4* 10.3* HGB 12.1* 11.7* HCT 36.7* 34.8* PLATELET 111* 111* NEUTROABS 9.35* 8.43* Chemistry: Recent Labs 02/19/213902/18/212012 NA 140 142 K 3.3* 3.3* CL 103 106 CO2 30 31 BUN 4* 5* CREATININE 0.67* 0.65* GLUCOSE 90 84 ANIONGAP 7 5 Recent Labs 02/19/213902/18/212012 CALCIUM 8.7 8.7 MAGNESIUM 0.73 -- LFT's: No results for input(s): BILITOT, BILIDIR, ALBUMIN, ALKPHOS, ALT, AST in the last 7068 hours. Coags: Recent Labs 02/18/212012 PT 11.6 INR 1.0 PTT 27 Cardiac enzymes: No results for input(s): TROPONINT, CK, PROBNP in the last 7068 hours. Endocrine: No results for input(s): TSH, CORTISOL in the last 7068 hours. Invalid input(s): XIMDNNIXBPS7G No results for input(s): HA1C in the last 7068 hours. Heme: No results for input(s): LDH, HAPTOGLOBIN, URICACID in the last 168 hours. Microbiology Results (Last 30 days) No results found for the last 720 hours. Diagnostic Tests and Imaging: Results for orders placed or performed during the hospital encounter of 02/18/21 XR Chest AP and Pelvis AP Trauma (Generic) (Exam End: 02/18/2021 8:07 PM) ?? Impression ?? Chest: 1. Possible mild pulmonary vascular congestion. 2. No focal consolidation, pneumothorax or pleural effusions. ?? Pelvis: 1. No acute fracture or traumatic malalignment of the pelvis or proximal femurs. ?? Thank you for letting us participate in the care of this patient. If you are a health care provider and have any questions regarding this report, please contact the number below. For patients who have questions please contact the health continuum of care manager that requested your imaging first. Electronically signed by: Corey Rivers MD, [facility] ([phone]), at 02/18/2021 8:[address] Head & Cervical Spine wo Contrast (Generic) (Exam End: 02/18/2021 8:43 PM) ?? Impression ?? 1. Multiple sites of subarachnoid and intraventricular hemorrhage as detailed above. No significant mass effect. ?? 2. Small subdural hematoma along the falx. ?? 3. Interval increased size of a 1.1 cm left convexity subdural hygroma. ?? 4. Extensive chronic dental disease associated with chronic maxillary sinus inflammation and reactive osseous changes. ?? 5. No acute facial fractures. ?? 6. No acute cervical spine fractures. ?? Thank you for letting us participate in the care of this patient. If you are a health care provider and have any questions regarding this report, please contact the number below. For patients who have questions please contact the health continuum of care manager that requested your imaging first. Thoracic Spine Reconstruction (Exam End: 02/18/2021 8:43 PM) ?? Impression ?? 1. No direct evidence of acute traumatic injury in the chest, abdomen, pelvis, or thoracolumbar spine. Nonspecific small amount of perihepatic fluid, below the attenuation expected for hemorrhage, favored to represent sequela of liver disease, given history of alcohol use disorder. 2. Complex cystic lesion in the left interpolar kidney measuring 3.8 cm, indeterminate, recommend further characterization with ultrasound. 3. Eccentric wall thickening along the greater curvature as stomach, a nonspecific finding, may represent sequela of chronic gastritis; however, a malignant process, especially in this patient with prior history of lymphoma, is not definitively excluded. Recommend further characterization with direct visualization via endoscopy in the appropriate clinical setting. 4. Diffuse circumferential wall thickening of the urinary bladder and rectum, along with diffuse pelvic soft tissue stranding, may represent sequelae of prostate cancer radiation treatments, which ended in April 2020, per electronic medical record. 5. Diffusely increased attenuation of the liver measuring approximately 70 Hounsfield units, indeterminate finding, correlate with medication regimen. 6. Stable aneurysmal dilatation of the ascending, infrarenal aorta, and left common iliac artery. 7. Dilatation of the main pulmonary artery to 3.3 cm may indicate pulmonary hypertension. ?? Preliminary report signed by: Tariq Gamboa at 02/18/2021 10:[address] Lumbar Spine Reconstruction (Exam End: 02/18/2021 8:43 PM) ?? Impression ?? 1. No direct evidence of acute traumatic injury in the chest, abdomen, pelvis, or thoracolumbar spine. Nonspecific small amount of perihepatic fluid, below the attenuation expected for hemorrhage, favored to represent sequela of liver disease, given history of alcohol use disorder. 2. Complex cystic lesion in the left interpolar kidney measuring 3.8 cm, indeterminate, recommend further characterization with ultrasound. 3. Eccentric wall thickening along the greater curvature as stomach, a nonspecific finding, may represent sequela of chronic gastritis; however, a malignant process, especially in this patient with prior history of lymphoma, is not definitively excluded. Recommend further characterization with direct visualization via endoscopy in the appropriate clinical setting. 4. Diffuse circumferential wall thickening of the urinary bladder and rectum, along with diffuse pelvic soft tissue stranding, may represent sequelae of prostate cancer radiation treatments, which ended in April 2020, per electronic medical record. 5. Diffusely increased attenuation of the liver measuring approximately 70 Hounsfield units, indeterminate finding, correlate with medication regimen. 6. Stable aneurysmal dilatation of the ascending, infrarenal aorta, and left common iliac artery. 7. Dilatation of the main pulmonary artery to 3.3 cm may indicate pulmonary hypertension. ?? Preliminary report signed by: Tariq Gamboa at 02/18/2021 10:[address] Face wo Contrast (Exam End: 02/18/2021 8:43 PM) ?? Impression ?? 1. Multiple sites of subarachnoid and intraventricular hemorrhage as detailed above. No significant mass effect. ?? 2. Small subdural hematoma along the falx. ?? 3. Interval increased size of a 1.1 cm left convexity subdural hygroma. ?? 4. Extensive chronic dental disease associated with chronic maxillary sinus inflammation and reactive osseous changes. ?? 5. No acute facial fractures. ?? 6. No acute cervical spine fractures. ?? Thank you for letting us participate in the care of this patient. If you are a health care provider and have any questions regarding this report, please contact the number below. For patients who have questions please contact the health continuum of care manager that requested your imaging first. Chest Abdomen Pelvis wo Contrast (Exam End: 02/18/2021 8:43 PM) ?? Impression ?? 1. No direct evidence of acute traumatic injury in the chest, abdomen, pelvis, or thoracolumbar spine. Nonspecific small amount of perihepatic fluid, below the attenuation expected for hemorrhage, favored to represent sequela of liver disease, given history of alcohol use disorder. 2. Complex cystic lesion in the left interpolar kidney measuring 3.8 cm, indeterminate, recommend further characterization with ultrasound. 3. Eccentric wall thickening along the greater curvature as stomach, a nonspecific finding, may represent sequela of chronic gastritis; however, a malignant process, especially in this patient with prior history of lymphoma, is not definitively excluded. Recommend further characterization with direct visualization via endoscopy in the appropriate clinical setting. 4. Diffuse circumferential wall thickening of the urinary bladder and rectum, along with diffuse pelvic soft tissue stranding, may represent sequelae of prostate cancer radiation treatments, which ended in April 2020, per electronic medical record. 5. Diffusely increased attenuation of the liver measuring approximately 70 Hounsfield units, indeterminate finding, correlate with medication regimen. 6. Stable aneurysmal dilatation of the ascending, infrarenal aorta, and left common iliac artery. 7. Dilatation of the main pulmonary artery to 3.3 cm may indicate pulmonary hypertension. ?? Preliminary report signed by: Tariq Gamboa at 02/18/2021 10:47 PM Impression: Narcisa Eduardo is a(n) 75 y.o. 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 Villa), subdural hemorrhage in Aug 2020 s/p L MMA embolization who presents following a fall with LOC and trauma to his left head found to have subarachnoid and intraventricular hemorrhage. Mental status and neurologic exam this morning are re-assuring with only abnormalities being brisk R patellar reflex and L upgoing toe - otherwise normal. Orientation question errors likely due to concussion, or normal mentation given unknown neurologic baseline. Limited evidence of deficits secondary to stroke or current bleed. Aside for continuing [employer] seizure meds, no other recommendations currently advised. Regarding etiology of the fall, patient reports feeling weak prior to onset and recalls thinking oh man, I'm going to fall before hitting the ground. He had no sense of palpitations or feeling faint, ate a full breakfast and has felt healthy lately. No other recent falls or seizures and he has full sensation in his feet. Given he was leaving a urology appointment, possible cause is vasovagal episode 2/2 bladder instrumentation, or perhaps clumsiness or a pesky crack in the sidewalk. Unlikely to be seizure given no characteristic seizure findings (eyes rolling back, convulsing). Given stableclinical picture without pattern or regularity of falls, recommending continuing AEDs and monitoring neuro exam for improvement. Neurology will sign-off for now but is available for further consultation if necessary. See full recommendations below. Recommendations: # Subarachnoid and intraventricular hemorrhages in setting of traumatic fall and history of post-stroke epilepsy - Continue lacosamide 150mg BID for seizure ppx - Neurology to sign off Consult service will continue to follow patient. X Recommendations are above, please page if further consultation required. Rao Rojaston MS4 [facility] 02/19/2021 Neurology Consult Service, pager #[phone] * Tayler Reese MD - 02/19/2021 8:16 AM EDT Social Determinants of Health Screening Questionnaire for Adults with Traumatic Injuries We recognize that many things beyond medical care affect your health and wellbeing. We have care team members with special knowledge of assistance programs and community resources. Admit Date: 02/18/2021 7:58 PM Responses Provided By: patient Financial How hard is it for you to pay for the very basics like food, housing, medical care and heating? (positive screen: somewhat hard, hard or very hard) not hard at all Food Insecurity Within the past 12 months, have you worried that your food would run out before you got money to buy more? (positive screen: sometimes true or often true) never true Within the past 12 months, the food you bought just didn't last and you didn't have money to get more? (positive screen: sometimes true or often true) never true Housing Stability In the last 12 months, was there a time when you were not able to pay the mortgage or rent on time?(positive screen: yes) no In the last 12 months how many places have you lived? (positive screen: 3 or more) 1 In the last 12 months, was there a time when you did not have a steady place to sleep or slept in ashelter (including now)? (positive screen: yes) no Health Literacy How often do you need to have someone help you when you read instructions, pamphlets or other written material from your doctor or pharmacy? (positive screen: sometimes, often, or always) never Social Isolation The next questions are about how you feel about different aspects of your life. For ach one indicate how often you feel that way. ( hardly ever =1 pt, some of the time = 2 pts, often = 3 pts, score >= 5 is positive) How often do you feel that you lack companionship? hardly ever How often do you feel left out? hardly ever How often do you feel isolated from others? hardly ever Transportation In the past 12 months, has lack of transportation kept you from medical appointments or from getting medications? (positive screen: yes) no In the past 12 months, has lack of transportation kept you from meetings, work or getting things needed for daily living? (positive screen: yes) no Employment What was your main activity during most of the last 12 months? (positive screen: unemployed or permanently unable to work) retired Legal Do you have any legal issues that you are having difficulty resolving, such as disability, custody,parole, eviction, restraining orders, or other? (positive screen: yes) no Relationship Safety Do you feel unsafe in your relationships at home, school or work? (positive screen: yes) no Has someone threatened to hurt you, your family or your pets? (positive screen: yes) no Have you ever felt that someone wants to hurt you? (positive screen: yes) no Does anyone try to keep you from having contact with others or doing things outside your home? (positive screen: yes) no Phone/Internet (new questions) Do you have reliable use of a phone? (positive screen: no) yes Do you have reliable access to the internet? (positive screen: no) yes Screening Result: Narcisa Eduardo did not screen positive for any social determinant domains. They do not request any additional services or social work referral. Tayler Reese MD 02/19/2021 8:17 AM * Charleen Colby MD - 02/19/2021 7:14 AM EDT TRAUMA & ACUTE SURGICAL CARE SERVICE TERTIARY SURVEY ID/MECHANISM OF INJURY: Narcisa Eduardo is a 75 y.o. Male admitted on 02/18/2021 following fall from standing for the management of Neurologic injuries (Please see below box for a complete summary of injuries) HISTORY OF PRESENT ILLNESS: Narcisa Eduardo is a 75 y.o. male [place] [facility] [place]. Description of events leading up to injury includes: Patient was outside [facility], there for a urinary retention and PCP appointment, was sitting on a bench. His went to get the car and heard a thud. She turned ar ound and saw him on the cement unresponsive, reportedly for two minutes. Patient was seen by [facility] and brought to Emergency Room. He was found to have a subdural hematoma and was [place] [facility] [place]. ?? Primary survey revealed: intact airway, equal breath sounds/respirations, present 2+ peripheral pulses with stable vital signs and no signs of bleeding, GCS 15 (6 - Follows simple motor commands, 5 -Alert and oriented, 4 - Opens eyes on own), and complete exposure. ?? Secondary survey is as follows. 1. ??Multiple sites of subarachnoid and intraventricular hemorrhage as detailed above. No significant mass effect. 2. ??Small subdural hematoma along the falx. 3. ??Interval increased size of a 1.1 cm left convexity subdural hygroma. 4. Left periorbital soft tissue hematoma PMHx: Past Medical History: Diagnosis Date ??? AAA (abdominal aortic aneurysm) ??? CVA (cerebral vascular accident) 09/28/2019 ??? EtOH dependence h/o quit 09/2019 after stroke ??? HTN (hypertension) ??? Nicotine dependence ??? 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 Seizures ??? Thoracic aortic aneurysm ??? Trauma PSHx: Past Surgical History: Procedure Laterality Date ??? COLONOSCOPY [address] [facility] Dr Ko ??? PROSTATE BIOPSY 11/23/2019 HOME MEDICATIONS: Medications Prior to Admission Medication Sig Dispense Refill Last Dose ??? lacosamide (Vimpat) 100 mg Tablet TAKE ONE TABLET BY MOUTH TWICE A DAY FOR SEIZURES ??? tamsulosin (Flomax) 0.4 mg Capsule TAKE 1 CAPSULE BY MOUTH EVERY DAY 30 MINUTES AFTER THE SAME MEALTIME EACH DAY FOR PROSTATE/URINARY SYMPTOMS. ??? multivit with minerals/lutein (MULTIVITAMIN 50 PLUS ORAL) Take by mouth. ??? aspirin EC 81 mg Tablet, Delayed Release (E.C.) TAKE ONE TABLET BY MOUTH EVERY DAY TO PREVENT STROKE/HEART ATTACK OR FOR PAIN/SWELLING/INFLAMMATION ??? folic acid (Folvite) 1 mg Tablet TAKE ONE TABLET BY MOUTH EVERY DAY VITAMIN/NUTRITION SUPPLEMENT ??? valproate (Depakene) 250 mg/5 mL Solution TAKE ONE TABLESPOONFUL BY MOUTH EVERY TWELVE HOURS ??? potassium chloride ER (K-Dur/Klor-Con) 10 mEq Tablet Sustained Release TAKE ONE TABLET BY MOUTHEVERY DAY TO SUPPLEMENT POTASSIUM ??? ergocalciferol, vitamin D2, (VITAMIN D ORAL) Take by mouth daily. ??? atorvastatin (Lipitor) 80 mg Tablet Take 80 mg by mouth daily. ??? lisinopriL (Prinivil;Zestril) 10 mg Tablet Take 10 mg by mouth daily. CURRENT MEDICATIONS: ??? sodium chloride 0.9 % (flush) flush 5 mL ??? sodium chloride 0.9 % (flush) flush 5-20 mL ??? lidocaine (Xylocaine) 1% (10 mg/mL) injection 3 mg ??? naloxone (Narcan) (0.4 mg/mL) injection 0.2 mg ??? lacosamide (Vimpat) tablet Tab 150 mg ??? famotidine (Pepcid) tablet 20 mg OR famotidine (Pepcid) (10 mg/mL) injection 20 mg ??? acetaminophen (Tylenol) tablet 975 mg ??? tamsulosin (Flomax) capsule 0.4 mg ??? atorvastatin (Lipitor) tablet 80 mg ??? lactated ringers infusion ??? HYDROmorphone (Dilaudid) (1 mg/mL) injection syringe 0.2 mg sodium chloride 0.9 % (flush), lidocaine, naloxone, HYDROmorphone ALLERGIES: Allergies Allergen Reactions ??? Peanut Anaphylaxis ??? Contrast [Iodine And Iodide Containing Products] Hives FAMILY HISTORY: is non-contributory SOCIAL HISTORY: Alcohol: none Tobacco: smoked 1 packs per day(s) for ~70 years Drug: no history of illicit drug use Employment/Pertinent Social History: Retired REVIEW OF SYSTEMS: complete 10 system ROS performed with pertinent findings below. Constitutional: no fevers, chills Ears, nose, mouth, throat, and face: positive for tooth pain, dfficultly swallowing, negative for blurry or double vision, Respiratory: negative for pleuritic chest pain, SOB Cardiovascular: negative for chest pain Gastrointestinal: negative for nausea, vomiting abd pain Genitourinary: positive for urinary incontinence MSK/Skin: positive for generalized achy muscle pain PHYSICAL EXAM: VITALS: Last value Range last 24 hrs Temperature Temp: 36.6 ??C (97.9 ??F) Temp: [36.4 ??C (97.5 ??F)-36.7 ??C (98.1 ??F)] Heart Rate Heart Rate: 57 Heart Rate: [51-65] Blood Pressure BP: 132/70 BP: (131-139)/(62-71) Respiratory Rate Resp: 19 Resp: [12-22] SpO2 SpO2: 99 % SpO2: [94 %-99 %] I/O last 3 completed shifts: In: 0 Out: 1200 [Urine:1200] There is no height or weight on file to calculate BMI. GENERAL: Alert, awake and in no apparent distress HEAD: Normocephalic, atraumatic FACE: Pupils/eyes: Equal round and reactive to light, L orbital and periorbital ecchymosis with edema, L subconjunctival hemorrhage. No scleral icterus. EOMs intact Ears: Clear to visualization, no otorrhea, symmetrical Midface: Left upper lip contusion. No tenderness, no edema over the midface. No rhinorrhea Oropharynx: Nonbloody, moist mucous membranes noted, no lacerations, no malocclusions, no chipped or missing teeth. NECK: Supple, trachea midline, no masses, no edema, no contusions or abrasions, no obvious JVD. No bruits or thrills over carotid arteries., bilaterally. LUNGS: Equal, clear breath sounds bilaterally without crepitus, no obvious deformities of the chest, no paroxysmal movements, no use of accessory muscles for breathing CARDIAC: Regular rate and rhythm without murmur or extra heart sounds, S1-S2 ABDOMEN/GI: Soft, nontender, nondistended, no abrasions or contusions. + Bowel sounds no distention, hernias or scars. Without obvious ascites PELVIS: Stable to iliac and anterior/posterior manipulation. RECTAL: Normal gluteal tone. No evidence of hemorrhoids or fissures. EXT: Normal and symmetric movement, normal range of motion, no edema, distal CMS intact ??4. Capillary refill less than 3 seconds and pedal/radial pulses intact. SKIN: No lacerations, abrasions or contusions on complete anterior and posterior skin exam. NEURO: Mental Status: Awake and alert to person place and time Cranial Nerves: CN II-XII intact Motor: No obvious tics or tremors. Normal 5/5 strength in all tested muscle groups. Sensory: Intact to touch SPINE: No step-off, tenderness midline or paraspinal, edema or eccymosis over cervical,thoracic or lumbar spines GCS: 15 (6 - Follows simple motor commands, 5 - Alert and oriented, 4 - Opens eyes on own) LABORATORY: Recent Labs 02/19/21 0040 02/18/212012 WBC 11.4* 10.3* HGB 12.1* 11.7* HCT 36.7* 34.8* PLATELET 111* 111* PT -- 11.6 INR -- 1.0 PTT -- 27 Recent Labs 02/19/21 0040 02/18/212012 NA 140 142 K 3.3* 3.3* CL 103 106 CO2 30 31 BUN 4* 5* CREATININE 0.67* 0.65* GLUCOSE 90 84 CALCIUM 8.7 8.7 MAGNESIUM 0.73 -- RADIOLOGY: (include date, findings, and impression) CT Chest Abdomen Pelvis wo Contrast Result Date: 02/18/2021 EXAMINATION: CT CHEST ABDOMEN PELVIS WO CONTRAST, CT THORACIC SPINE RECONSTRUCTION, CT LUMBAR SPINERECONSTRUCTION CLINICAL HISTORY: Abdominal trauma, blunt fall, eFAST + in RUQ TECHNIQUE: Helical CTof the chest, abdomen and pelvis was performed without intravenous contrast. Reconstructions of the thoracic and lumbar spine were performed, as well. COMPARISON: CT scan of the chest, abdomen, and pelvis on 12/07/2018 CT scan of the abdomen and pelvis on 12/03/2020 FINDINGS: The absence of intravenous contrast limits the evaluation of solid viscera and vasculature. Chest: Lungs and large airways: Moderate upper lobe predominant centrilobular emphysema. Mild biapical pleuroparenchymal scarring. Unchanged anterior right upper lobe calcified granuloma. No focal or confluent airspace opacities. Patent central airways. Pleura: No pleural effusion or pneumothorax. Heart/vasculature: Normal heart size. Similar aneurysmal dilatation of the ascending aorta and main pulmonary artery, which measure 4.1 cm and 3.3 cm in maximum axial dimension, respectively. Multivessel coronary artery calcification, severe in the left anterior descending artery. Scattered calcification of the aortic valve and thoracic aorta. Lymph nodes, mediastinum, and cameron: No enlarged lymph nodes. Evaluation of the cameron limited by the absence of intravenous contrast. Mild circumferential wall thickening of the thoracic esophagus similar compared to 12/07/2018. Abdomen/pelvis: Liver: Normal size. Diffusely increased attenuation of the liver measuring approximately 70 Hounsfield units. Unchanged circumscribed simple cystmeasuring 0.8 cm in the inferior right liver lobe (series 900 image 64). Bile ducts: Normal caliber. Gallbladder: Contracted gallbladder with calcified gallstone sitting within the gallbladder body. Normal gallbladder wall thickness. Pancreas: Moderate diffuse atrophy of the pancreas without ductaldilatation or peripancreatic stranding. Spleen: Normal. Adrenals: Right adrenal gland nodule measuring 1.0 cm (series 900 image 33) unchanged in size since 03/18/2015. Kidneys: Nonobstructive calculusin the inferior pole of the right kidney measuring 0.7 cm. Additional calculus in the interpolar right kidney measuring 0.4 cm and punctate calculus in the inferior pole of the left kidney. Normal renetta iber collecting system. Septated cortical cyst measuring simple fluid density with central calcification in the posterolateral left interpolar kidney measuring 3.5 x 3.8 cm, similar in size and appearance compared to 12/03/2020. Urinary Bladder: Diffuse circumferential wall thickening with amorphous calcification posteriorly. Mckeon catheter and balloon in place with postprocedural antidependent locules of air. Vasculature: Diffuse atherosclerotic calcification of the abdominal aorta and iliac arterial vasculature. Bilobed infrarenal aorta aneurysmal dilatation with the upper and lower aneurysms unchanged in size at 4.1 cm and 3.7 cm in maximum axial dimension. Unchanged aneurysmal dilatationof the distal left common iliac artery to 1.5 cm in maximum axial dimension. Lymph Nodes: No enlarged lymph nodes. Bowel: Normal caliber of the small and large bowel. Eccentric wall thickening along the greater curvature of the stomach. Circumferential wall thickening of the rectum similar from prior. Moderate colonic stool burden. Peritoneum and mesentery: Small amount of low attenuation perihepatic free fluid. No free air or loculated fluid collections. Mild mesenteric venous engorgement may be secondary to volume overload. Fat stranding throughout the pelvis. Abdominal wall: Mild anasarca may be secondary to volume overload. Reproductive organs: Brachytherapy present in the prostate gland. Osseous structures: Moderate diffuse osteopenia. Thoracic spine: With the exception of the chronic central compression deformity of the T12 vertebral body, the thoracic vertebral bodies are normal in height. Intact posterior elements. Normal alignment. Multilevel degenerative change characterizedby lateral bridging osteophytes and mild bilateral facet arthropathy in the lower thoracic spine. Lumbar spine: Preserved vertebral body heights. Intact posterior elements. Normal alignment. Similar m ultilevel degenerative change compared to 12/07/2018 with intervertebral height loss most severe at L2-L3 and L3-L4 with associated cystic and sclerotic endplate change. Bilateral facet arthropathy observed throughout the lumbar spine but most prominent in the mid and lower lumbar spine, with kissing spinous processes are present. Anterior wedge deformity T12, unchanged from exam of 12/03/2020 1. No direct evidence of acute traumatic injury in the chest, abdomen, pelvis, or thoracolumbar spine. Nonspecific small amount of perihepatic fluid, below the attenuation expected for hemorrhage, favored to represent sequela of liver disease, given history of alcohol use disorder. 2. Complex cystic lesion in the left interpolar kidney measuring 3.8 cm, indeterminate, recommend further characterization with ultrasound. Unexpected finding 3. Eccentric wall thickening along the greater curvature as stomach, a nonspecific finding, may represent sequela of chronic gastritis; however, a malignant process, especially in this patient with prior history of lymphoma, is not definitively excluded. Recommend further characterization with direct visualization via endoscopy in the appropriate clinicalsetting. 4. Diffuse circumferential wall thickening of the urinary bladder and rectum, along with diffuse pelvic soft tissue stranding, may represent sequelae of prostate cancer radiation treatments,which ended in April 2020, per electronic medical record. 5. Diffusely increased attenuation ofthe liver measuring approximately 70 Hounsfield units, indeterminate finding, correlate with medication regimen. 6. Stable aneurysmal dilatation of the ascending, infrarenal aorta, and left common iliac artery. 7. Dilatation of the main pulmonary artery to 3.3 cm may indicate pulmonary hypertension. Preliminary report signed by: Tariq Gamboa at 02/18/2021 10:47 PM I have personally reviewed theimage(s) and the resident's interpretation and agree with the findings, Damian Duggan MD at 02/18/2021 11:49 PM Thank you for letting us participate in the care of this patient. If you are a health care provider and have any questions regarding this report, please contact the number below. For patients who have questions please contact the health continuum of care manager that requested your imaging first. Electronically signed by: Damian Duggan MD, [facility] ([phone]), at 02/18/2021 11:49 PM XR Chest AP and Pelvis AP Trauma (Generic) Result Date: 02/18/2021 EXAMINATION: XR CHEST AP AND PELVIS AP TRAUMA (GENERIC) CLINICAL HISTORY: fall from standing TECHNIQUE: AP radiograph of the chest. AP radiograph of the pelvis. COMPARISON: Chest radiograph 02/18/2021nd 12/03/2020 and 08/26/2020. CT of the abdomen and pelvis 12/03/2020 FINDINGS: Chest: Pulmonary vascular markings are mildly prominent and indistinct which may represent mild congestion. No focal consolidation. No pneumothorax. No pleural effusions. Unchanged size of the cardiomediastinal silhouette allowing for differences in magnification with portable technique. Specifically the appearance of the mediastinum is unchanged compared to 08/26/2020 portable chest x-ray. No cardiomegaly. The bilateralhilar are within normal limits for size. No acute osseous findings in the thorax. Pelvis: Mckeon catheter projects over the expected location of the bladder. There are radiopaque beads/rods within theprostate. There is diffuse vascular calcification. Normal alignment of the bilateral hips on this single AP view. No widening of the sacroiliac joints or pubic symphysis. No acute fracture of the pelvis or proximal femurs. Visualized sacrum is unremarkable. Portions of the inferior sacrum is obscured by fecal material and bowel gas. There is bilateral facet arthropathy in the lumbar spine. Moderate quantity of stool throughout the colon. Chest: 1. Possible mild pulmonary vascular congestion. 2. No focal consolidation, pneumothorax or pleural effusions. Pelvis: 1. No acute fracture or traumatic malalignment of the pelvis or proximal femurs. Thank you for letting us participate in the care of this patient. If you are a health care pro vider and have any questions regarding this report, please contact the number below. For patients who have questions please contact the health continuum of care manager that requested your imaging first. Electronically signed by: Corey Rivers MD, [facility] ([phone]), at 02/18/2021 8:[address] Face wo Contrast Result Date: 02/18/2021 EXAMINATION: CT HEAD AND CERVICAL SPINE WO CONTRAST (GENERIC), CT FACE WO CONTRAST CLINICAL HISTORY: fall from standing TECHNIQUE: CT head, face and cervical spine performed without intravenous contrast administration. COMPARISON: CT head 12/07/2020. Brain MRI 08/26/2020. FINDINGS: CT head: Encephalomalacia involves the right frontal lobe operculum. Several punctate foci of hemorrhage identified within this encephalomalacia. Rounded focus of hemorrhage measuring 1.1 cm present along the right sideof the septum pellucidum. Left convexity subdural hygroma measures 1.1 cm in size. This collection previously measured 5 mm. A small amount of isodense extra-axial material overlies the left parietallobe and may represent a subacute subdural hematoma. Stability of the small amount of isodense extra-axial area overlying the left frontal lobe. Subarachnoid hemorrhage is present about the left sylvian fissure and basal cisterns, especially about the right ambient cistern. Trace subarachnoid hemorrhage in the right frontal lobe. Small amount of intraventricular blood layers dependently within the occipital horns of the lateral ventricles. Trace amount of sub-callosal hemorrhage about the genu.Small amount of subdural blood around the right tentorium. Ventricles are unchanged in size and configuration compared to prior. Left periorbital soft tissue hematoma is identified. Mastoid air cellsare clear. No skull fractures. CT face: Dental disease with dental caries and periapical lucencies.Mild mucosal thickening of bilateral maxillary sinuses associated with diffuse osseous wall thickening indicating chronic inflammation likely related to the chronic dental disease. Reactive osseous changes also identified within the bilateral pterygoid plates. No facial fractures. CT cervical spine: No evidence for acute malalignment. No acute fracture deformities. No prevertebral soft tissue swel ling. Emphysematous changes in the lung apices noted. 1. Multiple sites of subarachnoid and intraventricular hemorrhage as detailed above. No significantmass effect. 2. Small subdural hematoma along the falx. 3. Interval increased size of a 1.1 cm leftconvexity subdural hygroma. 4. Extensive chronic dental disease associated with chronic maxillary sinus inflammation and reactive osseous changes. 5. No acute facial fractures. 6. No acute cervical sp ine fractures. Thank you for letting us participate in the care of this patient. If you are a health care provider and have any questions regarding this report, please contact the number below. For patients who have questions please contact the health continuum of care manager that requested your imaging first. Head & Cervical Spine wo Contrast (Generic) Result Date: 02/18/2021 EXAMINATION: CT HEAD AND CERVICAL SPINE WO CONTRAST (GENERIC), CT FACE WO CONTRAST CLINICAL HISTORY: fall from standing TECHNIQUE: CT head, face and cervical spine performed without intravenous contrast administration. COMPARISON: CT head 12/07/2020. Brain MRI 08/26/2020. FINDINGS: CT head: Encephalomalacia involves the right frontal lobe operculum. Several punctate foci of hemorrhage identified within this encephalomalacia. Rounded focus of hemorrhage measuring 1.1 cm present along the right sideof the septum pellucidum. Left convexity subdural hygroma measures 1.1 cm in size. This collection previously measured 5 mm. A small amount of isodense extra-axial material overlies the left parietallobe and may represent a subacute subdural hematoma. Stability of the small amount of isodense extra-axial area overlying the left frontal lobe. Subarachnoid hemorrhage is present about the left sylvian fissure and basal cisterns, especially about the right ambient cistern. Trace subarachnoid hemorrhage in the right frontal lobe. Small amount of intraventricular blood layers dependently within the occipital horns of the lateral ventricles. Trace amount of sub-callosal hemorrhage about the genu.Small amount of subdural blood around the right tentorium. Ventricles are unchanged in size and configuration compared to prior. Left periorbital soft tissue hematoma is identified. Mastoid air cellsare clear. No skull fractures. CT face: Dental disease with dental caries and periapical lucencies.Mild mucosal thickening of bilateral maxillary sinuses associated with diffuse osseous wall thickening indicating chronic inflammation likely related to the chronic dental disease. Reactive osseous changes also identified within the bilateral pterygoid plates. No facial fractures. CT cervical spine: No evidence for acute malalignment. No acute fracture deformities. No prevertebral soft tissue swel ling. Emphysematous changes in the lung apices noted. 1. Multiple sites of subarachnoid and intraventricular hemorrhage as detailed above. No significantmass effect. 2. Small subdural hematoma along the falx. 3. Interval increased size of a 1.1 cm leftconvexity subdural hygroma. 4. Extensive chronic dental disease associated with chronic maxillary sinus inflammation and reactive osseous changes. 5. No acute facial fractures. 6. No acute cervical sp ine fractures. Thank you for letting us participate in the care of this patient. If you are a health care provider and have any questions regarding this report, please contact the number below. For patients who have questions please contact the health continuum of care manager that requested your imaging first. Film Library- Storage Only CT Head And Spine Result Date: 02/18/2021 This exam is auto-finalizing. It's purpose is for storage only. Film Library- Storage Only DX Chest Result Date: 02/18/2021 This exam is auto-finalizing. It's purpose is for storage only. Film Library- Storage Only DX Upper Extremity Result Date: 02/18/2021 This exam is auto-finalizing. It's purpose is for storage only. CT Lumbar Spine Reconstruction Result Date: 02/18/2021 EXAMINATION: CT CHEST ABDOMEN PELVIS WO CONTRAST, CT THORACIC SPINE RECONSTRUCTION, CT LUMBAR SPINERECONSTRUCTION CLINICAL HISTORY: Abdominal trauma, blunt fall, eFAST + in RUQ TECHNIQUE: Helical CTof the chest, abdomen and pelvis was performed without intravenous contrast. Reconstructions of the thoracic and lumbar spine were performed, as well. COMPARISON: CT scan of the chest, abdomen, and pelvis on 12/07/2018 CT scan of the abdomen and pelvis on 12/03/2020 FINDINGS: The absence of intravenous contrast limits the evaluation of solid viscera and vasculature. Chest: Lungs and large airways: Moderate upper lobe predominant centrilobular emphysema. Mild biapical pleuroparenchymal scarring. Unchanged anterior right upper lobe calcified granuloma. No focal or confluent airspace opacities. Patent central airways. Pleura: No pleural effusion or pneumothorax. Heart/vasculature: Normal heart size. Similar aneurysmal dilatation of the ascending aorta and main pulmonary artery, which measure 4.1 cm and 3.3 cm in maximum axial dimension, respectively. Multivessel coronary artery calcification, severe in the left anterior descending artery. Scattered calcification of the aortic valve and thoracic aorta. Lymph nodes, mediastinum, and cameron: No enlarged lymph nodes. Evaluation of the cameron limited by the absence of intravenous contrast. Mild circumferential wall thickening of the thoracic esophagus similar compared to 12/07/2018. Abdomen/pelvis: Liver: Normal size. Diffusely increased attenuation of the liver measuring approximately 70 Hounsfield units. Unchanged circumscribed simple cystmeasuring 0.8 cm in the inferior right liver lobe (series 900 image 64). Bile ducts: Normal caliber. Gallbladder: Contracted gallbladder with calcified gallstone sitting within the gallbladder body. Normal gallbladder wall thickness. Pancreas: Moderate diffuse atrophy of the pancreas without ductaldilatation or peripancreatic stranding. Spleen: Normal. Adrenals: Right adrenal gland nodule measuring 1.0 cm (series 900 image 33) unchanged in size since 03/18/2015. Kidneys: Nonobstructive calculusin the inferior pole of the right kidney measuring 0.7 cm. Additional calculus in the interpolar right kidney measuring 0.4 cm and punctate calculus in the inferior pole of the left kidney. Normal renetta iber collecting system. Septated cortical cyst measuring simple fluid density with central calcification in the posterolateral left interpolar kidney measuring 3.5 x 3.8 cm, similar in size and appearance compared to 12/03/2020. Urinary Bladder: Diffuse circumferential wall thickening with amorphous calcification posteriorly. Mckeon catheter and balloon in place with postprocedural antidependent locules of air. Vasculature: Diffuse atherosclerotic calcification of the abdominal aorta and iliac arterial vasculature. Bilobed infrarenal aorta aneurysmal dilatation with the upper and lower aneurysms unchanged in size at 4.1 cm and 3.7 cm in maximum axial dimension. Unchanged aneurysmal dilatationof the distal left common iliac artery to 1.5 cm in maximum axial dimension. Lymph Nodes: No enlarged lymph nodes. Bowel: Normal caliber of the small and large bowel. Eccentric wall thickening along the greater curvature of the stomach. Circumferential wall thickening of the rectum similar from prior. Moderate colonic stool burden. Peritoneum and mesentery: Small amount of low attenuation perihepatic free fluid. No free air or loculated fluid collections. Mild mesenteric venous engorgement may be secondary to volume overload. Fat stranding throughout the pelvis. Abdominal wall: Mild anasarca may be secondary to volume overload. Reproductive organs: Brachytherapy present in the prostate gland. Osseous structures: Moderate diffuse osteopenia. Thoracic spine: With the exception of the chronic central compression deformity of the T12 vertebral body, the thoracic vertebral bodies are normal in height. Intact posterior elements. Normal alignment. Multilevel degenerative change characterizedby lateral bridging osteophytes and mild bilateral facet arthropathy in the lower thoracic spine. Lumbar spine: Preserved vertebral body heights. Intact posterior elements. Normal alignment. Similar m ultilevel degenerative change compared to 12/07/2018 with intervertebral height loss most severe at L2-L3 and L3-L4 with associated cystic and sclerotic endplate change. Bilateral facet arthropathy observed throughout the lumbar spine but most prominent in the mid and lower lumbar spine, with kissing spinous processes are present. Anterior wedge deformity T12, unchanged from exam of 12/03/2020 1. No direct evidence of acute traumatic injury in the chest, abdomen, pelvis, or thoracolumbar spine. Nonspecific small amount of perihepatic fluid, below the attenuation expected for hemorrhage, favored to represent sequela of liver disease, given history of alcohol use disorder. 2. Complex cystic lesion in the left interpolar kidney measuring 3.8 cm, indeterminate, recommend further characterization with ultrasound. Unexpected finding 3. Eccentric wall thickening along the greater curvature as stomach, a nonspecific finding, may represent sequela of chronic gastritis; however, a malignant process, especially in this patient with prior history of lymphoma, is not definitively excluded. Recommend further characterization with direct visualization via endoscopy in the appropriate clinicalsetting. 4. Diffuse circumferential wall thickening of the urinary bladder and rectum, along with diffuse pelvic soft tissue stranding, may represent sequelae of prostate cancer radiation treatments,which ended in April 2020, per electronic medical record. 5. Diffusely increased attenuation ofthe liver measuring approximately 70 Hounsfield units, indeterminate finding, correlate with medication regimen. 6. Stable aneurysmal dilatation of the ascending, infrarenal aorta, and left common iliac artery. 7. Dilatation of the main pulmonary artery to 3.3 cm may indicate pulmonary hypertension. Preliminary report signed by: Tariq Gamboa at 02/18/2021 10:47 PM I have personally reviewed theimage(s) and the resident's interpretation and agree with the findings, Damian Duggan MD at 02/18/2021 11:49 PM Thank you for letting us participate in the care of this patient. If you are a health care provider and have any questions regarding this report, please contact the number below. For patients who have questions please contact the health continuum of care manager that requested your imaging first. Electronically signed by: Damian Duggan MD, [facility] ([phone]), at 02/18/2021 11:[address] Thoracic Spine Reconstruction Result Date: 02/18/2021 EXAMINATION: CT CHEST ABDOMEN PELVIS WO CONTRAST, CT THORACIC SPINE RECONSTRUCTION, CT LUMBAR SPINERECONSTRUCTION CLINICAL HISTORY: Abdominal trauma, blunt fall, eFAST + in RUQ TECHNIQUE: Helical CTof the chest, abdomen and pelvis was performed without intravenous contrast. Reconstructions of the thoracic and lumbar spine were performed, as well. COMPARISON: CT scan of the chest, abdomen, and pelvis on 12/07/2018 CT scan of the abdomen and pelvis on 12/03/2020 FINDINGS: The absence of intravenous contrast limits the evaluation of solid viscera and vasculature. Chest: Lungs and large airways: Moderate upper lobe predominant centrilobular emphysema. Mild biapical pleuroparenchymal scarring. Unchanged anterior right upper lobe calcified granuloma. No focal or confluent airspace opacities. Patent central airways. Pleura: No pleural effusion or pneumothorax. Heart/vasculature: Normal heart size. Similar aneurysmal dilatation of the ascending aorta and main pulmonary artery, which measure 4.1 cm and 3.3 cm in maximum axial dimension, respectively. Multivessel coronary artery calcification, severe in the left anterior descending artery. Scattered calcification of the aortic valve and thoracic aorta. Lymph nodes, mediastinum, and cameron: No enlarged lymph nodes. Evaluation of the cameron limited by the absence of intravenous contrast. Mild circumferential wall thickening of the thoracic esophagus similar compared to 12/07/2018. Abdomen/pelvis: Liver: Normal size. Diffusely increased attenuation of the liver measuring approximately 70 Hounsfield units. Unchanged circumscribed simple cystmeasuring 0.8 cm in the inferior right liver lobe (series 900 image 64). Bile ducts: Normal caliber. Gallbladder: Contracted gallbladder with calcified gallstone sitting within the gallbladder body. Normal gallbladder wall thickness. Pancreas: Moderate diffuse atrophy of the pancreas without ductaldilatation or peripancreatic stranding. Spleen: Normal. Adrenals: Right adrenal gland nodule measuring 1.0 cm (series 900 image 33) unchanged in size since 03/18/2015. Kidneys: Nonobstructive calculusin the inferior pole of the right kidney measuring 0.7 cm. Additional calculus in the interpolar right kidney measuring 0.4 cm and punctate calculus in the inferior pole of the left kidney. Normal renetta iber collecting system. Septated cortical cyst measuring simple fluid density with central calcification in the posterolateral left interpolar kidney measuring 3.5 x 3.8 cm, similar in size and appearance compared to 12/03/2020. Urinary Bladder: Diffuse circumferential wall thickening with amorphous calcification posteriorly. Mckeon catheter and balloon in place with postprocedural antidependent locules of air. Vasculature: Diffuse atherosclerotic calcification of the abdominal aorta and iliac arterial vasculature. Bilobed infrarenal aorta aneurysmal dilatation with the upper and lower aneurysms unchanged in size at 4.1 cm and 3.7 cm in maximum axial dimension. Unchanged aneurysmal dilatationof the distal left common iliac artery to 1.5 cm in maximum axial dimension. Lymph Nodes: No enlarged lymph nodes. Bowel: Normal caliber of the small and large bowel. Eccentric wall thickening along the greater curvature of the stomach. Circumferential wall thickening of the rectum similar from prior. Moderate colonic stool burden. Peritoneum and mesentery: Small amount of low attenuation perihepatic free fluid. No free air or loculated fluid collections. Mild mesenteric venous engorgement may be secondary to volume overload. Fat stranding throughout the pelvis. Abdominal wall: Mild anasarca may be secondary to volume overload. Reproductive organs: Brachytherapy present in the prostate gland. Osseous structures: Moderate diffuse osteopenia. Thoracic spine: With the exception of the chronic central compression deformity of the T12 vertebral body, the thoracic vertebral bodies are normal in height. Intact posterior elements. Normal alignment. Multilevel degenerative change characterizedby lateral bridging osteophytes and mild bilateral facet arthropathy in the lower thoracic spine. Lumbar spine: Preserved vertebral body heights. Intact posterior elements. Normal alignment. Similar m ultilevel degenerative change compared to 12/07/2018 with intervertebral height loss most severe at L2-L3 and L3-L4 with associated cystic and sclerotic endplate change. Bilateral facet arthropathy observed throughout the lumbar spine but most prominent in the mid and lower lumbar spine, with kissing spinous processes are present. Anterior wedge deformity T12, unchanged from exam of 12/03/2020 1. No direct evidence of acute traumatic injury in the chest, abdomen, pelvis, or thoracolumbar spine. Nonspecific small amount of perihepatic fluid, below the attenuation expected for hemorrhage, favored to represent sequela of liver disease, given history of alcohol use disorder. 2. Complex cystic lesion in the left interpolar kidney measuring 3.8 cm, indeterminate, recommend further characterization with ultrasound. Unexpected finding 3. Eccentric wall thickening along the greater curvature as stomach, a nonspecific finding, may represent sequela of chronic gastritis; however, a malignant process, especially in this patient with prior history of lymphoma, is not definitively excluded. Recommend further characterization with direct visualization via endoscopy in the appropriate clinicalsetting. 4. Diffuse circumferential wall thickening of the urinary bladder and rectum, along with diffuse pelvic soft tissue stranding, may represent sequelae of prostate cancer radiation treatments,which ended in April 2020, per electronic medical record. 5. Diffusely increased attenuation ofthe liver measuring approximately 70 Hounsfield units, indeterminate finding, correlate with medication regimen. 6. Stable aneurysmal dilatation of the ascending, infrarenal aorta, and left common iliac artery. 7. Dilatation of the main pulmonary artery to 3.3 cm may indicate pulmonary hypertension. Preliminary report signed by: Tariq Gamboa at 02/18/2021 10:47 PM I have personally reviewed theimage(s) and the resident's interpretation and agree with the findings, Damian Duggan MD at 02/18/2021 11:49 PM Thank you for letting us participate in the care of this patient. If you are a health care provider and have any questions regarding this report, please contact the number below. For patients who have questions please contact the health continuum of care manager that requested your imaging first. Electronically signed by: Damian Duggan MD, [facility] ([phone]), at 02/18/2021 11:49 PM ASSESSMENT/SUMMARY OF INJURIES: 75 y.o. male with PMH of R MCA stroke, seizure disorder, L SDH s/p MMA embolization, follicular lymphoma in remission, prostate cancer s/p radiation, here s/p fall from standing. Traumatic injuries included in chart below. Injuries identified on Tertiary Survey: 1. none Hospital Issues: - Acute Pain Traumatic Injuries: Injury Intervention Follow-up BRAIN: NSGY: -NC q2 -no need for additional imaging -BP control, keep SBP<160 -Hold anticoagulation/antiplatelets, SCDs while in bed for DVT ppx Neuro - continue home lacosamide for seizure ppx NSGY: TBD 4 weeks for repeat head CT Concussion f-u with PCP For Mild TBI f-u with PCP in 4 weeks FACE: L soft tissue hematoma TRAUMA Monitor SKIN (lacerations, abrastions): TRAUMA Standard wound care TRAUMA Follow up coordinated with other appointments Acute in hospital issues: Acute pain -3 lidoderm patches - tylenol 975mg q6hr SCHED - hydromorphone Bowel Regimen LBM: [employer] Tetanus status: unknown Admission UA: Blood, WBC, nitrate positive Tox Screen: Opiate Screen presumed positive Resolved in hospital issues: none Chronic health conditions: Seizure after MCA stroke Lacosamide 150 mg BID Urinary Retention Tamsulosin 4 mg Anxiety Bupropion 5 mg BID Fluids/Electrolytes: IV Fluids Diet: Dysphagia Soft Diet Activity status: Activity As Tolerated Spine status: No spinal injuries noted Pulmonary toilet: Encourage frequent mobilization, IS use, titrate O2 >90 DVT PPX: SCDs, holding for Neuro GI PPX: H2 Tim Lines/Tubes/Drains: PIV, mckeon Consults (Please see solution consultant notes): PT/OT, NSGY Dispo: TBD,CRC working on dispo plan Status: Stepdown NSCU Incidental Findings- Complex cystic lesion in the left interpolar kidney measuring 3.8 cm, indeterminate, recommend further characterization with ultrasound. [] Incidental Findings Form Completed Charleen Colby MD 02/19/2021 Trauma pager [phone] documented in this encounter H&P Notes * Feliciano Estrada MD - 02/18/2021 8:54 PM EDT Trauma Surgery Admission History & Physical Patient Name: Narcisa Eduardo Level of Activation: Alert MR#: [id number] [ ] Scene Call or [X] Hospital Transfer : [id number] CC/MECHANISM OF INJURY: 75 y.o. Male s/p fall from standing, on 02/18 HISTORY OF PRESENT ILLNESS: Narcisa Eduardo is a 75 y.o. male [place] [facility] [place]. Description of events leading up to injury includes: Patient was outside [facility], there for a urinary retention and PCP appointment, was sitting on a bench. His went to get the car and heard a thud. She turned ar ound and saw him on the cement unresponsive, reportedly for two minutes. Patient was seen by [facility] and brought to Emergency Room. He was found to have a subdural hematoma and was [place] [facility] [place]. Primary survey revealed: intact airway, equal breath sounds/respirations, present 2+ peripheral pulses with stable vital signs and no signs of bleeding, GCS 15 (6 - Follows simple motor commands, 5 -Alert and oriented, 4 - Opens eyes on own), and complete exposure. Secondary survey is as follows. PAST MEDICAL AND SURGICAL HISTORY: Past Medical History: Diagnosis Date ??? AAA [...] [address] [facility] Dr Ko ??? PROSTATE BIOPSY 11/23/2019 ALLERGIES: Allergies Allergen Reactions ??? Peanut Anaphylaxis ??? Contrast [Iodine And Iodide Containing Products] Hives MEDICATIONS: (Not in a hospital admission) Spoke with Bertha Eduardo, patient's daughter regarding his medication schedule 8:30 AM: aspirin 81, vitamin D3 supplement, folic acid 1 mg, lacosamide 150 mg 4:30 PM: bupropion 35 mg 8:30 PM: atorvastatin 80 mg, tamsulosin 4 mg, lacosamide 150 mg Meds crushed with applesauce/maple syrup Taken off lisinopril 10 mg on February 08 by PCP Just finished 10-day course of PO vancomycin on February 16 for C diff FAMILY HISTORY: Denies family history of bleeding and clotting disorders SOCIAL HISTORY: Alcohol: quit EtOH 1 year ago, used to drink beer Tobacco: active smoker, 1 pack per day for over 30 years Drug: denies REVIEW OF SYSTEMS: complete 10 system ROS performed with pertinent findings below. Pertinent items are noted in HPI. PHYSICAL EXAM: VITALS: Patient Vitals for the past 24 hrs: Heart Rate From SP02 Pulse Resp BP SpO2 O2 Device 02/18/211958 62 bpm 62 -- 146/82 97 % RA 02/18/211999 64 bpm 64 12 115/89 98 % RA 02/18/212014 63 bpm 63 16 146/74 97 % RA 02/18/212029 60 bpm -- -- 141/75 98 % RA GENERAL: alert, awake and no apparent distress HEAD: Normocephalic, without obvious abnormality, atraumatic, left periorbital ecchymosis FACE: Pupils: equal, round, reactive to light; left periorbital ecchymosis Tympanic Membranes: clear to visualization; Midface: no tenderness, no swelling, no contusions, no lacerations and no abrasions over entire face Oropharynx: lips swollen and ecchymotic, nonbloody, moist mucous membranes, no lacerations, no malocclusion and no chipped or missing teeth NECK: no tenderness to palpation, trachea midline, no masses, no swelling, no contusions and no abrasions LUNG: no crepitus CARDIAC: Regular rate and rhythm, S1S2 present or without murmur or extra heart sounds ABDOMEN/GI: soft, non-tender, non-distended, no abrasions and no contusions PELVIS: stable to AP and/or lateral compression RECTAL: Digital exam deferred, normal voluntary anal contraction EXTREMITIES: left dorsal hand with skin tear dressed with xeroform and gauze, bilateral anterior knee superficial abrasions, otherwise normal and symmetric movement, normal range of motion, no joint swelling SPINE: no deformity, no stepoffs, no tenderness to palpation and no abrasions over cervical spine, thoracic spine and/or lumbar spine SKIN: left hand and bilateral knees as above, otherwise no lacerations, abrasions or contusions on complete skin exam NEURO: Mental Status: awake and alert, oriented to person, place Cranial Nerves: CN II - XII intact Motor: normal 5/5 strength in all tested muscle groups Sensory: no sensory deficits noted FAST: [ ] Attending staff present [X] Attending staff NOT present Findings: Right Upper Quadrant [ ] No fluid [X] Fluid Left Upper Quadrant [X] No fluid [ ] Fluid Pericardium [X] No fluid [ ] Fluid Pelvis [X] No fluid [ ] Fluid Right Lung [X] No pneumothorax [ ] Pneumothorax Left Lung [X] No pneumothorax [ ] Pneumothorax LABORATORY: Recent Results (from the past 24 hour(s)) Basic Metabolic Panel (non-fasting) Result Value Ref Range Glucose Lvl 84 65 - 199 mg/dL BUN 5 (L) 10 - 20 mg/dL Creatinine 0.65 (L) 0.80 - 1.50 mg/dL Sodium 142 135 - 145 mmol/L Potassium 3.3 (L) 3.5 - 5.0 mmol/L Chloride 106 98 - 107 mmol/L CO2 31 22 - 31 mmol/L Anion Gap 5 5 - 15 mmol/L Calcium 8.7 8.5 - 10.5 mg/dL Estimated GFR 95 >=60 mL/min/1.73 m?? Prothrombin Time Result Value Ref Range PT 11.6 9.4 - 12.5 sec INR 1.0 APTT Result Value Ref Range PTT 27 25.0 - 37.0 sec Ethanol Level Result Value Ref Range Ethanol Lvl <100 <=99 mg/L Urinalysis with reflex Culture Specimen: Clean Catch Urine Result Value Ref Range Glucose UA Negative Negative mg/dL Protein UA Trace (A) Negative mg/dL Bilirubin UA Negative Negative mg/dL Urobilinogen UA Normal Normal mg/dL pH UA 8.0 5.0 - 8.0 Blood UA Moderate (A) Negative mg/dL Ketones UA Negative Negative mg/dL Nitrite UA Positive (A) Negative Leukocytes UA Moderate (A) Negative mcL Appearance UA Cloudy (A) Clear Spec [place] UA 1.011 1.005 - 1.030 Color UA Yellow Yellow Culture Reflexed Yes Antibody screen Result Value Ref Range Expires at 2359 on: 02/21/2021 Hemogram Result Value Ref Range WBC 10.3 (H) 4.0 - 9.5 x10(3)/mcL RBC 3.77 (L) 4.58 - 5.54 x10(6)/mcL Hemoglobin 11.7 (L) 13.7 - 16.5 gm/dL Hematocrit 34.8 (L) 40.5 - 48.5 % MCV 92.3 82.9 - 93.1 fL MCH 31.0 27.5 - 32.1 pg MCHC 33.6 32.0 - 35.7 gm/dL Platelets 111 (L) 145 - 357 x10(3)/mcL RDWSD 46.0 (H) 36.0 - 45.0 fL RDWCV 13.5 11.4 - 13.8 % MPV 9.1 7.6 - 12.9 fL nRBC % Auto 0.0 % nRBC Abs Auto 0.000 0.000 - 0.000 x10(3)/mcL Differential, Automated Result Value Ref Range Neutrophils % 81.8 % Neutr Abs (ANC) 8.43 (H) 1 - 6 x10(3)/mcL Lymphocytes % 9.8 % Lymphocytes Abs 1.0 0.9 - 3.2 x10(3)/mcL Monocytes % 6.3 % Monocyte Abs 0.6 0.3 - 0.9 x10(3)/mcL Eosinophils % 1.1 % Eosinophils Abs 0.1 0.0 - 0.4 x10(3)/mcL Basophils % 0.4 % Basophils Abs 0.0 0.0 - 0.1 x10(3)/mcL Immature Gran % 0.60 % [place]ah Gran Abs 0.06 (H) 0.00 - 0.04 x10(3)/mcL Gold Tube HOLD Result Value Ref Range Gold Hold Sample in lab. ABORH Recheck Status Result Value Ref Range ABORH Recheck Order Order Placed Urinalysis Microscopic Exam Result Value Ref Range RBC UA 41 (H) 0 - 3 /HPF WBC UA 46 (H) 0 - 3 /HPF Bacteria UA Many (A) None /HPF Squam Epith UA 1 <=4 /HPF Hyaline Cast UA 34 (H) 0 - 2 /LPF Rapid Drug Screen, Urine (CHRIS Request) Result Value Ref Range CHRIS Conf Requested No CHRIS Requested See Comment RADIOLOGY: XR Chest and Pelvis FINDINGS: Chest: Pulmonary vascular markings are mildly prominent and indistinct which may represent mild congestion. No focal consolidation. No pneumothorax. No pleural effusions. Unchanged size of the cardiomediastinal silhouette allowing for differences in magnification with portable technique. Specifically the appearance of the mediastinum is unchanged compared to 08/26/2020 portable chest x-ray. No cardiomegaly. The bilateral hilar are within normal limits for size. No acute osseous findings in the thorax. ?? Pelvis: Mckeon catheter projects over the expected location of the bladder. There are radiopaque beads/rods within the prostate. There is diffuse vascular calcification. Normal alignment of the bilateral hips on this single AP view. No widening of the sacroiliac joints or pubic symphysis. No acute fracture of the pelvis or proximal femurs. Visualized sacrum is unremarkable. Portions of the inferior sacrum is obscured by fecal material and bowel gas. There is bilateral facet arthropathy in the lumbar spine. Moderate quantity of stool throughout the colon. ? IMPRESSION Chest: 1. Possible mild pulmonary vascular congestion. 2. No focal consolidation, pneumothorax or pleural effusions. ?? Pelvis: 1. No acute fracture or traumatic malalignment of the pelvis or proximal femurs. CT Head, C Spine, and Face FINDINGS: CT head: Encephalomalacia involves the right frontal lobe operculum. Several punctate foci of hemorrhage identified within this encephalomalacia. ?? Rounded focus of hemorrhage measuring 1.1 cm present along the right side of the septum pellucidum. ?? Left convexity subdural hygroma measures 1.1 cm in size. This collection previously measured 5 mm. A small amount of isodense extra-axial material overlies the left parietal lobe and may represent a subacute subdural hematoma. Stability of the small amount of isodense extra-axial area overlying the left frontal lobe. ?? Subarachnoid hemorrhage is present about the left sylvian fissure and basal cisterns, especially about the right ambient cistern. Trace subarachnoid hemorrhage in the right frontal lobe. ?? Small amount of intraventricular blood layers dependently within the occipital horns of the lateral ventricles. ?? Trace amount of sub-callosal hemorrhage about the genu. ?? Small amount of subdural blood around the right tentorium. ?? Ventricles are unchanged in size and configuration compared to prior. ?? Left periorbital soft tissue hematoma is identified. Mastoid air cells are clear. No skull fractures. ?? CT face: Dental disease with dental caries and periapical lucencies. Mild mucosal thickening of bilateral maxillary sinuses associated with diffuse osseous wall thickening indicating chronic inflammation likely related to the chronic dental disease. Reactive osseous changes also identified within the bilateral pterygoid plates. No facial fractures. ?? CT cervical spine: No evidence for acute malalignment. No acute fracture deformities. No prevertebral soft tissue swelling. Emphysematous changes in the lung apices noted. ?? IMPRESSION 1. Multiple sites of subarachnoid and intraventricular hemorrhage as detailed above. No significant mass effect. ?? 2. Small subdural hematoma along the falx. ?? 3. Interval increased size of a 1.1 cm left convexity subdural hygroma. ?? 4. Extensive chronic dental disease associated with chronic maxillary sinus inflammation and reactive osseous changes. ?? 5. No acute facial fractures. ?? 6. No acute cervical spine fractures. CT Chest Abdomen & Pelvis - pending CT Thoracic and Lumbhar Spine - pending Incidental Radiographic Findings: final reads pending Procedures Performed: Intubation: No Mckeon Cath: No Central Line: No Chest Tube: No Sutures: No Other: Assessment/Summary of Injuries: 75 y.o. male s/p fall from standing. Injuries identified on primary and secondary survey include: 1. Multiple sites of subarachnoid and intraventricular hemorrhage as detailed above. No significant mass effect. 2. Small subdural hematoma along the falx. 3. Interval increased size of a 1.1 cm left convexity subdural hygroma. 4. Left periorbital soft tissue hematoma Plan: ?? Admit to Trauma Surgery Service in stable condition, Dr. Feliciano Estrada MD, attending ?? NPO ?? IV Fluids: lactated Ringer's at 100 mL/hr ?? Consulting Services and plans: 1. [facility] [place] [facility] checks 2. Neurology ?? Spine status: final reads pending, no C spine fracture, see precautions as ordered ?? Pain control: tylenol, prn dilaudid ?? DVT prophylaxis: Mechanical compression ?? GI prophylaxis: None ?? Tertiary survey in AM ?? [facility] Carmelo Ventura MD 02/18/2021 Trauma Surgery Attending Addendum: I was present on patient arrival and for the initial evaluation,and have discussed the plan with the resident staff. I agree with the above note with the followingadditions and/or modifications. Received in transfer from [facility] as a Trauma Alert for SDH after a ground level fall. The patient is a 75-year-old man who sustained a ground-level fall while he was at a doctor's appointment. He has a known history of seizures for which he takes lacosamide. This is a fairly new medication for him as he was started on it in November of this year. He then had a significant seizure in December and is currently being managed by neurology for his seizures. He was waiting for his to come back with a car however when she returned she found him on the ground. He was somewhat confused and denied having had a seizure. He has an indwelling Mckeon so no involuntary loss of urine was noted. On arrival he has the traumatic injuries detailed in the list above. Neurosurgery has been consulted and has left recommendations for acute 2-hour neuro checks at this time. Neurology has also been consulted to comment on his chronic seizure disorder and current medication regimen. Admit to trauma this evening, tertiary survey in the morning. Feliciano Estrada MD documented in this encounter ED Notes * Alfredo Breen MD - 02/18/2021 8:25 PM EDT ED RESIDENT FOLLOW-UP NOTE: Time of transfer of care: 2024 Care transferred from: Silvia Morgan MD Condition at time of transfer: stable Clinical Summary: 75 y.o. old male in the process of being evaluated for SDH. Please see Dr. Morgan's notes for initial evaluation, assessment and plan. Briefly, 75 yo M presenting as transfer from OSH for SDH s/p ground level fall. Patient notably had positive RUQ on FAST exam, therefore in addition to repeat head imaging, CT c/a/p and CTs of the spine are pending to assess for additional injury. CTs are non-contrast given contrast allergy. Will likely be admitted to neurosurgery vs trauma. Subsequent ED Course: - Imaging demonstrated: Results for orders placed or performed during the hospital encounter of 02/18/21 XR Chest AP and Pelvis AP Trauma (Generic) (Exam End: 02/18/2021 8:07 PM) Narrative EXAMINATION: XR CHEST AP AND PELVIS AP TRAUMA (GENERIC) CLINICAL HISTORY: fall from standing TECHNIQUE: AP radiograph of the chest. AP radiograph of the pelvis. COMPARISON: Chest radiograph 02/18/2021 and 12/03/2020 and 08/26/2020. CT of the abdomen and pelvis 12/03/2020 FINDINGS: Chest: Pulmonary vascular markings are mildly prominent and indistinct which may represent mild congestion. No focal consolidation. No pneumothorax. No pleural effusions. Unchanged size of the cardiomediastinal silhouette allowing for differences in magnification with portable technique. Specifically the appearance of the mediastinum is unchanged compared to 08/26/2020 portable chest x-ray. No cardiomegaly. The bilateral hilar are within normal limits for size. No acute osseous findings in the thorax. Pelvis: Mckeon catheter projects over the expected location of the bladder. There are radiopaque beads/rods within the prostate. There is diffuse vascular calcification. Normal alignment of the bilateral hips on this single AP view. No widening of the sacroiliac joints or pubic symphysis. No acute fracture of the pelvis or proximal femurs. Visualized sacrum is unremarkable. Portions of the inferior sacrum is obscured by fecal material and bowel gas. There is bilateral facet arthropathy in the lumbar spine. Moderate quantity of stool throughout the colon. Impression Chest: 1. Possible mild pulmonary vascular congestion. 2. No focal consolidation, pneumothorax or pleural effusions. Pelvis: 1. No acute fracture or traumatic malalignment of the pelvis or proximal femurs. Thank you for letting us participate in the care of this patient. If you are a health care provider and have any questions regarding this report, please contact the number below. For patients who have questions please contact the health continuum of care manager that requested your imaging first. Electronically signed by: Corey Rivers MD, [facility] ([phone]), at 02/18/2021 8:[address] Head & Cervical Spine wo Contrast (Generic) (Exam End: 02/18/2021 8:43 PM) Narrative EXAMINATION: CT HEAD AND CERVICAL SPINE WO CONTRAST (GENERIC), CT FACE WO CONTRAST CLINICAL HISTORY: fall from standing TECHNIQUE: CT head, face and cervical spine performed without intravenous contrast administration. COMPARISON: CT head 12/07/2020. Brain MRI 08/26/2020. FINDINGS: CT head: Encephalomalacia involves the right frontal lobe operculum. Several punctate foci of hemorrhage identified within this encephalomalacia. Rounded focus of hemorrhage measuring 1.1 cm present along the right side of the septum pellucidum. Left convexity subdural hygroma measures 1.1 cm in size. This collection previously measured 5 mm. A small amount of isodense extra-axial material overlies the left parietal lobe and may represent a subacute subdural hematoma. Stability of the small amount of isodense extra-axial area overlying the left frontal lobe. Subarachnoid hemorrhage is present about the left sylvian fissure and basal cisterns, especially about the right ambient cistern. Trace subarachnoid hemorrhage in the right frontal lobe. Small amount of intraventricular blood layers dependently within the occipital horns of the lateral ventricles. Trace amount of sub-callosal hemorrhage about the genu. Small amount of subdural blood around the right tentorium. Ventricles are unchanged in size and configuration compared to prior. Left periorbital soft tissue hematoma is identified. Mastoid air cells are clear. No skull fractures. CT face: Dental disease with dental caries and periapical lucencies. Mild mucosal thickening of bilateral maxillary sinuses associated with diffuse osseous wall thickening indicating chronic inflammation likely related to the chronic dental disease. Reactive osseous changes also identified within the bilateral pterygoid plates. No facial fractures. CT cervical spine: No evidence for acute malalignment. No acute fracture deformities. No prevertebral soft tissue swelling. Emphysematous changes in the lung apices noted. Impression 1. Multiple sites of subarachnoid and intraventricular hemorrhage as detailed above. No significant mass effect. 2. Small subdural hematoma along the falx. 3. Interval increased size of a 1.1 cm left convexity subdural hygroma. 4. Extensive chronic dental disease associated with chronic maxillary sinus inflammation and reactive osseous changes. 5. No acute facial fractures. 6. No acute cervical spine fractures. Thank you for letting us participate in the care of this patient. If you are a health care provider and have any questions regarding this report, please contact the number below. For patients who have questions please contact the health continuum of care manager that requested your imaging first. Thoracic Spine Reconstruction (Exam End: 02/18/2021 8:43 PM) Narrative EXAMINATION: CT CHEST ABDOMEN PELVIS WO CONTRAST, CT THORACIC SPINE RECONSTRUCTION, CT LUMBAR SPINE RECONSTRUCTION CLINICAL HISTORY: Abdominal trauma, blunt fall, eFAST + in RUQ TECHNIQUE: Helical CT of the chest, abdomen and pelvis was performed without intravenous contrast. Reconstructions of the thoracic and lumbar spine were performed, as well. COMPARISON: CT scan of the chest, abdomen, and pelvis on 12/07/2018 CT scan of the abdomen and pelvis on 12/03/2020 FINDINGS: The absence of intravenous contrast limits the evaluation of solid viscera and vasculature. Chest: Lungs and large airways: Moderate upper lobe predominant centrilobular emphysema. Mild biapical pleuroparenchymal scarring. Unchanged anterior right upper lobe calcified granuloma. No focal or confluent airspace opacities. Patent central airways. Pleura: No pleural effusion or pneumothorax. Heart/vasculature: Normal heart size. Similar aneurysmal dilatation of the ascending aorta and main pulmonary artery, which measure 4.1 cm and 3.3 cm in maximum axial dimension, respectively. Multivessel coronary artery calcification, severe in the left anterior descending artery. Scattered calcification of the aortic valve and thoracic aorta. Lymph nodes, mediastinum, and cameron: No enlarged lymph nodes. Evaluation of the cameron limited by the absence of intravenous contrast. Mild circumferential wall thickening of the thoracic esophagus similar compared to 12/07/2018. Abdomen/pelvis: Liver: Normal size. Diffusely increased attenuation of the liver measuring approximately 70 Hounsfield units. Unchanged circumscribed simple cyst measuring 0.8 cm in the inferior right liver lobe (series 900 image 64). Bile ducts: Normal caliber. Gallbladder: Contracted gallbladder with calcified gallstone sitting within the gallbladder body. Normal gallbladder wall thickness. Pancreas: Moderate diffuse atrophy of the pancreas without ductal dilatation or peripancreatic stranding. Spleen: Normal. Adrenals: Right adrenal gland nodule measuring 1.0 cm (series 900 image 33) unchanged in size since 03/18/2015. Kidneys: Nonobstructive calculus in the inferior pole of the right kidney measuring 0.7 cm. Additional calculus in the interpolar right kidney measuring 0.4 cm and punctate calculus in the inferior pole of the left kidney. Normal caliber collecting system. Septated cortical cyst measuring simple fluid density with central calcification in the posterolateral left interpolar kidney measuring 3.5 x 3.8 cm, similar in size and appearance compared to 12/03/2020. Urinary Bladder: Diffuse circumferential wall thickening with amorphous calcification posteriorly. Mckeon catheter and balloon in place with postprocedural antidependent locules of air. Vasculature: Diffuse atherosclerotic calcification of the abdominal aorta and iliac arterial vasculature. Bilobed infrarenal aorta aneurysmal dilatation with the upper and lower aneurysms unchanged in size at 4.1 cm and 3.7 cm in maximum axial dimension. Unchanged aneurysmal dilatation of the distal left common iliac artery to 1.5 cm in maximum axial dimension. Lymph Nodes: No enlarged lymph nodes. Bowel: Normal caliber of the small and large bowel. Eccentric wall thickening along the greater curvature of the stomach. Circumferential wall thickening of the rectum similar from prior. Moderate colonic stool burden. Peritoneum and mesentery: Small amount of low attenuation perihepatic free fluid. No free air or loculated fluid collections. Mild mesenteric venous engorgement may be secondary to volume overload. Fat stranding throughout the pelvis. Abdominal wall: Mild anasarca may be secondary to volume overload. Reproductive organs: Brachytherapy present in the prostate gland. Osseous structures: Moderate diffuse osteopenia. Thoracic spine: With the exception of the chronic central compression deformity of the T12 vertebral body, the thoracic vertebral bodies are normal in height. Intact posterior elements. Normal alignment. Multilevel degenerative change characterized by lateral bridging osteophytes and mild bilateral facet arthropathy in the lower thoracic spine. Lumbar spine: Preserved vertebral body heights. Intact posterior elements. Normal alignment. Similar multilevel degenerative change compared to 12/07/2018 with intervertebral height loss most severe at L2-L3 and L3-L4 with associated cystic and sclerotic endplate change. Bilateral facet arthropathy observed throughout the lumbar spine but most prominent in the mid and lower lumbar spine, with kissing spinous processes are present. Anterior wedge deformity T12, unchanged from exam of 12/03/2020 Impression 1. No direct evidence of acute traumatic injury in the chest, abdomen, pelvis, or thoracolumbar spine. Nonspecific small amount of perihepatic fluid, below the attenuation expected for hemorrhage, favored to represent sequela of liver disease, given history of alcohol use disorder. 2. Complex cystic lesion in the left interpolar kidney measuring 3.8 cm, indeterminate, recommend further characterization with ultrasound. Unexpected finding 3. Eccentric wall thickening along the greater curvature as stomach, a nonspecific finding, may represent sequela of chronic gastritis; however, a malignant process, especially in this patient with prior history of lymphoma, is not definitively excluded. Recommend further characterization with direct visualization via endoscopy in the appropriate clinical setting. 4. Diffuse circumferential wall thickening of the urinary bladder and rectum, along with diffuse pelvic soft tissue stranding, may represent sequelae of prostate cancer radiation treatments, which ended in April 2020, per electronic medical record. 5. Diffusely increased attenuation of the liver measuring approximately 70 Hounsfield units, indeterminate finding, correlate with medication regimen. 6. Stable aneurysmal dilatation of the ascending, infrarenal aorta, and left common iliac artery. 7. Dilatation of the main pulmonary artery to 3.3 cm may indicate pulmonary hypertension. Preliminary report signed by: Tariq Gamboa at 02/18/2021 10:47 PM I have personally reviewed the image(s) and the resident's interpretation and agree with the findings, Damian Duggan MD at 02/18/2021 11:49 PM Thank you for letting us participate in the care of this patient. If you are a health care provider and have any questions regarding this report, please contact the number below. For patients who have questions please contact the health continuum of care manager that requested your imaging first. Electronically signed by: Damian Duggan MD, [facility] ([phone]), at 02/18/2021 11:[address] Lumbar Spine Reconstruction (Exam End: 02/18/2021 8:43 PM) Narrative EXAMINATION: CT CHEST ABDOMEN PELVIS WO CONTRAST, CT THORACIC SPINE RECONSTRUCTION, CT LUMBAR SPINE RECONSTRUCTION CLINICAL HISTORY: Abdominal trauma, blunt fall, eFAST + in RUQ TECHNIQUE: Helical CT of the chest, abdomen and pelvis was performed without intravenous contrast. Reconstructions of the thoracic and lumbar spine were performed, as well. COMPARISON: CT scan of the chest, abdomen, and pelvis on 12/07/2018 CT scan of the abdomen and pelvis on 12/03/2020 FINDINGS: The absence of intravenous contrast limits the evaluation of solid viscera and vasculature. Chest: Lungs and large airways: Moderate upper lobe predominant centrilobular emphysema. Mild biapical pleuroparenchymal scarring. Unchanged anterior right upper lobe calcified granuloma. No focal or confluent airspace opacities. Patent central airways. Pleura: No pleural effusion or pneumothorax. Heart/vasculature: Normal heart size. Similar aneurysmal dilatation of the ascending aorta and main pulmonary artery, which measure 4.1 cm and 3.3 cm in maximum axial dimension, respectively. Multivessel coronary artery calcification, severe in the left anterior descending artery. Scattered calcification of the aortic valve and thoracic aorta. Lymph nodes, mediastinum, and cameron: No enlarged lymph nodes. Evaluation of the cameron limited by the absence of intravenous contrast. Mild circumferential wall thickening of the thoracic esophagus similar compared to 12/07/2018. Abdomen/pelvis: Liver: Normal size. Diffusely increased attenuation of the liver measuring approximately 70 Hounsfield units. Unchanged circumscribed simple cyst measuring 0.8 cm in the inferior right liver lobe (series 900 image 64). Bile ducts: Normal caliber. Gallbladder: Contracted gallbladder with calcified gallstone sitting within the gallbladder body. Normal gallbladder wall thickness. Pancreas: Moderate diffuse atrophy of the pancreas without ductal dilatation or peripancreatic stranding. Spleen: Normal. Adrenals: Right adrenal gland nodule measuring 1.0 cm (series 900 image 33) unchanged in size since 03/18/2015. Kidneys: Nonobstructive calculus in the inferior pole of the right kidney measuring 0.7 cm. Additional calculus in the interpolar right kidney measuring 0.4 cm and punctate calculus in the inferior pole of the left kidney. Normal caliber collecting system. Septated cortical cyst measuring simple fluid density with central calcification in the posterolateral left interpolar kidney measuring 3.5 x 3.8 cm, similar in size and appearance compared to 12/03/2020. Urinary Bladder: Diffuse circumferential wall thickening with amorphous calcification posteriorly. Mckeon catheter and balloon in place with postprocedural antidependent locules of air. Vasculature: Diffuse atherosclerotic calcification of the abdominal aorta and iliac arterial vasculature. Bilobed infrarenal aorta aneurysmal dilatation with the upper and lower aneurysms unchanged in size at 4.1 cm and 3.7 cm in maximum axial dimension. Unchanged aneurysmal dilatation of the distal left common iliac artery to 1.5 cm in maximum axial dimension. Lymph Nodes: No enlarged lymph nodes. Bowel: Normal caliber of the small and large bowel. Eccentric wall thickening along the greater curvature of the stomach. Circumferential wall thickening of the rectum similar from prior. Moderate colonic stool burden. Peritoneum and mesentery: Small amount of low attenuation perihepatic free fluid. No free air or loculated fluid collections. Mild mesenteric venous engorgement may be secondary to volume overload. Fat stranding throughout the pelvis. Abdominal wall: Mild anasarca may be secondary to volume overload. Reproductive organs: Brachytherapy present in the prostate gland. Osseous structures: Moderate diffuse osteopenia. Thoracic spine: With the exception of the chronic central compression deformity of the T12 vertebral body, the thoracic vertebral bodies are normal in height. Intact posterior elements. Normal alignment. Multilevel degenerative change characterized by lateral bridging osteophytes and mild bilateral facet arthropathy in the lower thoracic spine. Lumbar spine: Preserved vertebral body heights. Intact posterior elements. Normal alignment. Similar multilevel degenerative change compared to 12/07/2018 with intervertebral height loss most severe at L2-L3 and L3-L4 with associated cystic and sclerotic endplate change. Bilateral facet arthropathy observed throughout the lumbar spine but most prominent in the mid and lower lumbar spine, with kissing spinous processes are present. Anterior wedge deformity T12, unchanged from exam of 12/03/2020 Impression 1. No direct evidence of acute traumatic injury in the chest, abdomen, pelvis, or thoracolumbar spine. Nonspecific small amount of perihepatic fluid, below the attenuation expected for hemorrhage, favored to represent sequela of liver disease, given history of alcohol use disorder. 2. Complex cystic lesion in the left interpolar kidney measuring 3.8 cm, indeterminate, recommend further characterization with ultrasound. Unexpected finding 3. Eccentric wall thickening along the greater curvature as stomach, a nonspecific finding, may represent sequela of chronic gastritis; however, a malignant process, especially in this patient with prior history of lymphoma, is not definitively excluded. Recommend further characterization with direct visualization via endoscopy in the appropriate clinical setting. 4. Diffuse circumferential wall thickening of the urinary bladder and rectum, along with diffuse pelvic soft tissue stranding, may represent sequelae of prostate cancer radiation treatments, which ended in April 2020, per electronic medical record. 5. Diffusely increased attenuation of the liver measuring approximately 70 Hounsfield units, indeterminate finding, correlate with medication regimen. 6. Stable aneurysmal dilatation of the ascending, infrarenal aorta, and left common iliac artery. 7. Dilatation of the main pulmonary artery to 3.3 cm may indicate pulmonary hypertension. Preliminary report signed by: Tariq aGmboa at 02/18/2021 10:47 PM I have personally reviewed the image(s) and the resident's interpretation and agree with the findings, Damian Duggan MD at 02/18/2021 11:49 PM Thank you for letting us participate in the care of this patient. If you are a health care provider and have any questions regarding this report, please contact the number below. For patients who have questions please contact the health continuum of care manager that requested your imaging first. Electronically signed by: Damian Duggan MD, [facility] ([phone]), at 02/18/2021 11:[address] Face wo Contrast (Exam End: 02/18/2021 8:43 PM) Narrative EXAMINATION: CT HEAD AND CERVICAL SPINE WO CONTRAST (GENERIC), CT FACE WO CONTRAST CLINICAL HISTORY: fall from standing TECHNIQUE: CT head, face and cervical spine performed without intravenous contrast administration. COMPARISON: CT head 12/07/2020. Brain MRI 08/26/2020. FINDINGS: CT head: Encephalomalacia involves the right frontal lobe operculum. Several punctate foci of hemorrhage identified within this encephalomalacia. Rounded focus of hemorrhage measuring 1.1 cm present along the right side of the septum pellucidum. Left convexity subdural hygroma measures 1.1 cm in size. This collection previously measured 5 mm. A small amount of isodense extra-axial material overlies the left parietal lobe and may represent a subacute subdural hematoma. Stability of the small amount of isodense extra-axial area overlying the left frontal lobe. Subarachnoid hemorrhage is present about the left sylvian fissure and basal cisterns, especially about the right ambient cistern. Trace subarachnoid hemorrhage in the right frontal lobe. Small amount of intraventricular blood layers dependently within the occipital horns of the lateral ventricles. Trace amount of sub-callosal hemorrhage about the genu. Small amount of subdural blood around the right tentorium. Ventricles are unchanged in size and configuration compared to prior. Left periorbital soft tissue hematoma is identified. Mastoid air cells are clear. No skull fractures. CT face: Dental disease with dental caries and periapical lucencies. Mild mucosal thickening of bilateral maxillary sinuses associated with diffuse osseous wall thickening indicating chronic inflammation likely related to the chronic dental disease. Reactive osseous changes also identified within the bilateral pterygoid plates. No facial fractures. CT cervical spine: No evidence for acute malalignment. No acute fracture deformities. No prevertebral soft tissue swelling. Emphysematous changes in the lung apices noted. Impression 1. Multiple sites of subarachnoid and intraventricular hemorrhage as detailed above. No significant mass effect. 2. Small subdural hematoma along the falx. 3. Interval increased size of a 1.1 cm left convexity subdural hygroma. 4. Extensive chronic dental disease associated with chronic maxillary sinus inflammation and reactive osseous changes. 5. No acute facial fractures. 6. No acute cervical spine fractures. Thank you for letting us participate in the care of this patient. If you are a health care provider and have any questions regarding this report, please contact the number below. For patients who have questions please contact the health continuum of care manager that requested your imaging first. Chest Abdomen Pelvis wo Contrast (Exam End: 02/18/2021 8:43 PM) Narrative EXAMINATION: CT CHEST ABDOMEN PELVIS WO CONTRAST, CT THORACIC SPINE RECONSTRUCTION, CT LUMBAR SPINE RECONSTRUCTION CLINICAL HISTORY: Abdominal trauma, blunt fall, eFAST + in RUQ TECHNIQUE: Helical CT of the chest, abdomen and pelvis was performed without intravenous contrast. Reconstructions of the thoracic and lumbar spine were performed, as well. COMPARISON: CT scan of the chest, abdomen, and pelvis on 12/07/2018 CT scan of the abdomen and pelvis on 12/03/2020 FINDINGS: The absence of intravenous contrast limits the evaluation of solid viscera and vasculature. Chest: Lungs and large airways: Moderate upper lobe predominant centrilobular emphysema. Mild biapical pleuroparenchymal scarring. Unchanged anterior right upper lobe calcified granuloma. No focal or confluent airspace opacities. Patent central airways. Pleura: No pleural effusion or pneumothorax. Heart/vasculature: Normal heart size. Similar aneurysmal dilatation of the ascending aorta and main pulmonary artery, which measure 4.1 cm and 3.3 cm in maximum axial dimension, respectively. Multivessel coronary artery calcification, severe in the left anterior descending artery. Scattered calcification of the aortic valve and thoracic aorta. Lymph nodes, mediastinum, and cameron: No enlarged lymph nodes. Evaluation of the cameron limited by the absence of intravenous contrast. Mild circumferential wall thickening of the thoracic esophagus similar compared to 12/07/2018. Abdomen/pelvis: Liver: Normal size. Diffusely increased attenuation of the liver measuring approximately 70 Hounsfield units. Unchanged circumscribed simple cyst measuring 0.8 cm in the inferior right liver lobe (series 900 image 64). Bile ducts: Normal caliber. Gallbladder: Contracted gallbladder with calcified gallstone sitting within the gallbladder body. Normal gallbladder wall thickness. Pancreas: Moderate diffuse atrophy of the pancreas without ductal dilatation or peripancreatic stranding. Spleen: Normal. Adrenals: Right adrenal gland nodule measuring 1.0 cm (series 900 image 33) unchanged in size since 03/18/2015. Kidneys: Nonobstructive calculus in the inferior pole of the right kidney measuring 0.7 cm. Additional calculus in the interpolar right kidney measuring 0.4 cm and punctate calculus in the inferior pole of the left kidney. Normal caliber collecting system. Septated cortical cyst measuring simple fluid density with central calcification in the posterolateral left interpolar kidney measuring 3.5 x 3.8 cm, similar in size and appearance compared to 12/03/2020. Urinary Bladder: Diffuse circumferential wall thickening with amorphous calcification posteriorly. Mckeon catheter and balloon in place with postprocedural antidependent locules of air. Vasculature: Diffuse atherosclerotic calcification of the abdominal aorta and iliac arterial vasculature. Bilobed infrarenal aorta aneurysmal dilatation with the upper and lower aneurysms unchanged in size at 4.1 cm and 3.7 cm in maximum axial dimension. Unchanged aneurysmal dilatation of the distal left common iliac artery to 1.5 cm in maximum axial dimension. Lymph Nodes: No enlarged lymph nodes. Bowel: Normal caliber of the small and large bowel. Eccentric wall thickening along the greater curvature of the stomach. Circumferential wall thickening of the rectum similar from prior. Moderate colonic stool burden. Peritoneum and mesentery: Small amount of low attenuation perihepatic free fluid. No free air or loculated fluid collections. Mild mesenteric venous engorgement may be secondary to volume overload. Fat stranding throughout the pelvis. Abdominal wall: Mild anasarca may be secondary to volume overload. Reproductive organs: Brachytherapy present in the prostate gland. Osseous structures: Moderate diffuse osteopenia. Thoracic spine: With the exception of the chronic central compression deformity of the T12 vertebral body, the thoracic vertebral bodies are normal in height. Intact posterior elements. Normal alignment. Multilevel degenerative change characterized by lateral bridging osteophytes and mild bilateral facet arthropathy in the lower thoracic spine. Lumbar spine: Preserved vertebral body heights. Intact posterior elements. Normal alignment. Similar multilevel degenerative change compared to 12/07/2018 with intervertebral height loss most severe at L2-L3 and L3-L4 with associated cystic and sclerotic endplate change. Bilateral facet arthropathy observed throughout the lumbar spine but most prominent in the mid and lower lumbar spine, with kissing spinous processes are present. Anterior wedge deformity T12, unchanged from exam of 12/03/2020 Impression 1. No direct evidence of acute traumatic injury in the chest, abdomen, pelvis, or thoracolumbar spine. Nonspecific small amount of perihepatic fluid, below the attenuation expected for hemorrhage, favored to represent sequela of liver disease, given history of alcohol use disorder. 2. Complex cystic lesion in the left interpolar kidney measuring 3.8 cm, indeterminate, recommend further characterization with ultrasound. Unexpected finding 3. Eccentric wall thickening along the greater curvature as stomach, a nonspecific finding, may represent sequela of chronic gastritis; however, a malignant process, especially in this patient with prior history of lymphoma, is not definitively excluded. Recommend further characterization with direct visualization via endoscopy in the appropriate clinical setting. 4. Diffuse circumferential wall thickening of the urinary bladder and rectum, along with diffuse pelvic soft tissue stranding, may represent sequelae of prostate cancer radiation treatments, which ended in April 2020, per electronic medical record. 5. Diffusely increased attenuation of the liver measuring approximately 70 Hounsfield units, indeterminate finding, correlate with medication regimen. 6. Stable aneurysmal dilatation of the ascending, infrarenal aorta, and left common iliac artery. 7. Dilatation of the main pulmonary artery to 3.3 cm may indicate pulmonary hypertension. Preliminary report signed by: Tariq Gamboa at 02/18/2021 10:47 PM I have personally reviewed the image(s) and the resident's interpretation and agree with the findings, Damian Duggan MD at 02/18/2021 11:49 PM Thank you for letting us participate in the care of this patient. If you are a health care provider and have any questions regarding this report, please contact the number below. For patients who have questions please contact the health continuum of care manager that requested your imaging first. Electronically signed by: Damian Duggan MD, [facility] ([phone]), at 02/18/2021 11:49 PM Film Library- Storage Only CT Head And Spine (Exam End: 02/18/2021 4:55 PM) Narrative This exam is auto-finalizing. It's purpose is for storage only. Film Library- Storage Only DX Chest (Exam End: 02/18/2021 4:56 PM) Narrative This exam is auto-finalizing. It's purpose is for storage only. Film Library- Storage Only DX Upper Extremity (Exam End: 02/18/2021 4:57 PM) Narrative This exam is auto-finalizing. It's purpose is for storage only. - patient was admitted to trauma team Alfredo Breen MD Resident 02/19/21 0139 * Silvia Morgan - 02/18/2021 8:19 PM EDT ED Resident Note HPI: Narcisa Eduardo is a 75 y.o. male with past medical history CVA, hypertension, nicotine use, EtOH in remission, non-Hodgkin's lymphoma, prostate cancer, thoracic AAA who presents to the Emergency Department as trauma transfer after ground level fall. Patient reports that earlier today he lost his balance and fell striking his head on the concrete. He attributes the fall to balance issues that are residual deficits from prior strokes. States that this was witnessed by his and he did have positive LOC for an unknown amount of time. Subsequently he mostly complained of left-sided periorbital pain, was seen at outside hospital found to have subdural hematoma and transferred to [facility] for further evaluation On arrival he complains of left periorbital pain and left hand pain. Not anticoagulated, no acute illnesses. Allergic to contrast. Past Medical History: Diagnosis Date ??? AAA (abdominal aortic aneurysm) ??? CVA (cerebral vascular accident) 09/28/2019 ??? EtOH dependence h/o quit 09/2019 after stroke ??? HTN (hypertension) ??? Nicotine dependence ??? 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 Seizures ??? Thoracic aortic aneurysm Patient Active Problem List Diagnosis Code ??? 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 Malignant neoplasm of prostate C61 ??? Intracranial bleed I62.9 ??? Brain aneurysm I67.1 Current Facility-Administered Medications: ??? fentaNYL (PF) (50 mcg/mL) injection 50 mcg, 50 mcg, Intravenous, PER TRAUMA ANALGESIC PROTOCOL,Alex Carrillo MD Current Outpatient Medications: ??? lacosamide (Vimpat) 100 mg Tablet, TAKE ONE TABLET BY MOUTH TWICE A DAY FOR SEIZURES, Disp: , Rfl: ??? tamsulosin (Flomax) 0.4 mg Capsule, TAKE [...] TO SUPPLEMENT POTASSIUM, Disp: , Rfl: ??? ergocalciferol, vitamin D2, (VITAMIN D ORAL), Take by mouth daily., Disp: , Rfl: ??? atorvastatin (Lipitor) 80 mg Tablet, Take 80 mg by mouth daily., Disp: , Rfl: ??? lisinopriL (Prinivil;Zestril) 10 mg Tablet, Take 10 mg by mouth daily., Disp: , Rfl: Pt was seen under the supervision of an attending physician. Review of Systems Pertinent positives and negatives are included in the HPI, otherwise at least ten systems were reviewed and negative. Past Medical and Surgical Histories, Social History, Medications, Allergies were reviewed in the chart. Vitals: ED Triage Vitals [02/18/211999] BP: 115/89 Heart Rate: 64 Resp: 12 Temp: n/a Temp src: n/a SpO2: 98 % O2 Device: n/a O2 Flow Rate (L/min): n/a Physical Exam Constitutional: General: He is not in acute distress. Appearance: He is not ill-appearing or toxic-appearing. HENT: Head: Normocephalic. Comments: Left periorbital ecchymosis and swelling with superficial abrasion Nose: Nose normal. Mouth/Throat: Mouth: Mucous membranes are moist. Comments: Some dried blood products in mouth, no obviously chipped or loose teeth Eyes: Pupils: Pupils are equal, round, and reactive to light. Comments: Left scleral hemorrhage Cardiovascular: Rate and Rhythm: Normal rate and regular rhythm. Pulses: Normal pulses. Heart sounds: No murmur heard. Pulmonary: Effort: No respiratory distress. Breath sounds: Normal breath sounds. No wheezing or rales. Abdominal: General: There is no distension. Palpations: Abdomen is soft. Tenderness: There is no abdominal tenderness. There is no guarding. Musculoskeletal: General: No swelling or deformity. Cervical back: No tenderness. Right lower leg: No edema. Left lower leg: No edema. Skin: General: Skin is warm. Findings: Bruising and lesion (Skin tear to left dorsal hand. Scattered abrasion) present. Neurological: Mental Status: He is alert and oriented to person, place, and time. Cranial Nerves: No cranial nerve deficit. ED Course: Labs and imaging pending Recent Results (from the past 24 hour(s)) Prothrombin Time Result Value Ref Range PT 11.6 9.4 - 12.5 sec INR 1.0 APTT Result Value Ref Range PTT 27 25.0 - 37.0 sec Antibody screen Result Value Ref Range Expires at 2359 on: 02/21/2021 Hemogram Result Value Ref Range WBC 10.3 (H) 4.0 - 9.5 x10(3)/mcL RBC 3.77 (L) 4.58 - 5.54 x10(6)/mcL Hemoglobin 11.7 (L) 13.7 - 16.5 gm/dL Hematocrit 34.8 (L) 40.5 - 48.5 % MCV 92.3 82.9 - 93.1 fL MCH 31.0 27.5 - 32.1 pg MCHC 33.6 32.0 - 35.7 gm/dL Platelets 111 (L) 145 - 357 x10(3)/mcL RDWSD 46.0 (H) 36.0 - 45.0 fL RDWCV 13.5 11.4 - 13.8 % MPV 9.1 7.6 - 12.9 fL nRBC % Auto 0.0 % nRBC Abs Auto 0.000 0.000 - 0.000 x10(3)/mcL Differential, Automated Result Value Ref Range Neutrophils % 81.8 % Neutr Abs (ANC) 8.43 (H) 1 - 6 x10(3)/mcL Lymphocytes % 9.8 % Lymphocytes Abs 1.0 0.9 - 3.2 x10(3)/mcL Monocytes % 6.3 % Monocyte Abs 0.6 0.3 - 0.9 x10(3)/mcL Eosinophils % 1.1 % Eosinophils Abs 0.1 0.0 - 0.4 x10(3)/mcL Basophils % 0.4 % Basophils Abs 0.0 0.0 - 0.1 x10(3)/mcL Immature Gran % 0.60 % Kylah Gran Abs 0.06 (H) 0.00 - 0.04 x10(3)/mcL Gold Tube HOLD Result Value Ref Range Gold Hold Sample in lab. ABORH Recheck Status Result Value Ref Range ABORH Recheck Order Order Placed Rapid Drug Screen, Urine (CHRIS Request) Result Value Ref Range CHRIS Conf Requested No CHRIS Requested See Comment Results for orders placed or performed during the hospital encounter of 02/18/21 Film Library- Storage Only CT Head And Spine (Exam End: 02/18/2021 4:55 PM) Narrative This exam is auto-finalizing. It's purpose is for storage only. Film Library- Storage Only DX Chest (Exam End: 02/18/2021 4:56 PM) Narrative This exam is auto-finalizing. It's purpose is for storage only. Film Library- Storage Only DX Upper Extremity (Exam End: 02/18/2021 4:57 PM) Narrative This exam is auto-finalizing. It's purpose is for storage only. Film Library- Storage Only DX Upper Extremity Final Result Film Library- Storage Only DX Chest Final Result Film Library- Storage Only CT Head And Spine Final Result CT Trauma (Generic) (Results Pending) XR Chest AP and Pelvis AP Trauma (Generic) (Results Pending) CT Head & Cervical Spine wo Contrast (Generic) (Results Pending) Assessment and Plan: 75 y.o. male with past medical history CVA, hypertension, nicotine use, EtOH in remission, non-Hodgkin's lymphoma, prostate cancer, thoracic AAA who presents to the Emergency Department as trauma transfer from [facility] for neurosurgical evaluation after ground level fall with positive loss of consciousness and subdural hematoma on outside imaging. On arrival the patient was GCS 15 with intact airway with bilateral breath sounds, no signs of external hemorrhage and normal hemodynamics. He had intact pulses and motor/sensation in all 4 extremities. Secondary survey notable for significant left periorbital ecchymosis with bilaterally reactive pupils as well as scattered superficial abrasions and skin tear to the left dorsal hand. No C- spine or other spinal tenderness step-offs or deformities. There were no extremity deformities contusions or swelling. Pelvis was stable abdomen was nontender. E fast positive for free fluid in the right upper quadrant otherwise negative though heart was inadequately visualized due to difficult windows. The re was positive lung sliding bilaterally. He was taken to CT for repeat head CT to help guide neurosurgical management of subdural and complete trauma scans including evaluation for source of free fluid in the right upper quadrant. Hemodynamically stable Dispo admission to trauma, neurosurgery on board to guide management of subdural hematoma. Signed out to Dr. Breen pending CT scan results Silvia Morgan MD Resident 02/18/212049 Silvia Morgan MD Resident 02/18/212051 Associated attestation - Alex Carrillo MD - 02/20/2021 2:35 PM EDT ED ATTENDING ATTESTATION NOTE The patient was seen in conjunction with the resident physician. I have independently performed thekey portions of the history and physical exam. I have reviewed the nursing notes, vital signs, and all diagnostic studies personally including labs, imaging studies and EKGs. I have discussed the details of the case with the resident and agree with the assessment and plan as described in the resident note unless noted otherwise. Brief Summary: 75-year-old male who presents as trauma transfer for subdural hemorrhage after ground-level fall. On arrival here his primary survey is intact. Trauma exam is notable for a large periorbital hematoma on the left with some associated subconjunctival hemorrhage. Patient had several areas of superficial abrasion on bilateral knees and skin tear on left hand that was bandaged with Steri-Strips. Remainder of trauma exam is negative. Patient was noted to have an area concerning for abnormal fluid collection in the right upper quadrant of their fast. Patient CT scans were notable for multiple areas of subdural and subarachnoid hematoma as well as increasing size of hygroma. CT chest abdomen pelvis was notable for a small amount of perihepatic fluid more consistent with hepatic disease as opposed to blood and a hepatic cyst. Multiple areas of other changes in the abdominal skin most consistent with patient's history of malignancy. Patient was admitted to the trauma service with neurosurgical consult. He remained hemodynamically and neurologically stable for his time in the emergency department. Final Assessment: Head trauma documented in this encounter Miscellaneous Notes * Care Management Discharge - Chris Salazar RN - 02/26/2021 9:32 AM EDT CARE MANAGEMENT FINAL DISCHARGE NOTE Chart reviewed, care reviewed with primary team and at interdisciplinary rounds. Patient is medically ready for discharge to home w/ VNA services. Needs for Transition of Care: Plan for discharge is: Home w/ Services Agency Referrals & Follow-up Care: Contact information for follow-up Home Health & Hospice, [place] [address] [facility] [address] Transportation: family or friend will provide Functional status prior to admission: Independent Home Environment: Others in the home: spouse. Current Living Arrangements: home/apartment/condo. Current Functional Ability: Assistive Person and Equipment DME used at home: none DME Needed at DC: None Patient is insured through: Primary Insurance: [employer] Payor: TANO DE LA ROSA / Plan: [facility] / Product Type: *No Product type* / Secondary Insurance: N/A Prescription Coverage: Yes Preferred Pharmacy: [facility], [place] [address] [facility] [address] [facility], [place] [address] [facility] [address] [place] [facility] [place] [address] [facility] - [place], [place] - [address] [facility] [address] [facility] [address] This plan was formulated with input from patient and team. All are in agreement with plan. Due to current public health concerns related to COVID-19, I have verbally reviewed Medicare Discharge Rights with patient via telephone. Patient verbalizes understanding of right to appeal this discharge if patient does not feel medically ready. Important Message From Medicare about Your Rights letter was reviewed with patient. Patient acknowledged understanding and was offered a copy of the Important Message. Chris Salazar electrician yard Pgr: [phone] * Plan of Care - Vlad Whatley RN - 02/26/2021 5:07 AM EDT OUTCOME EVALUATION NOTE: OUTCOME SUMMARY: Patient was A/O x4, intermittently whifty and forgetful at beginning of shift, disoriented to placeand situation intermittently at 0400 neuro check. VSS throughout shift. Patient reports no pain. SBA with FWW up to toilet for BMs. Chronic mckeon in place draining yellow urine. Seizure pads on bed side rails. Encouraged to turn to offload weight, patient moving independently in bed. Hand dressing changed 02/25 at 20:20. Patient refusing Tylenol and bowel meds, last stool soft and creamy having daily BMs. Will continue to monitor. PLAN MOVING FORWARD: Pain control Mobilize Seizure precautions Wound care D/c planning INDIVIDUALIZED FALL PREVENTION: Patient-specific fall risk factors per assessment: [current deficits]: Hospital environment, generalized weakness Assistance [level of assistance required for transfers and ambulation]: SBA assist w/ FWW Supervision [direct monitoring required during toileting and ADLs]: min assist with ADL's Surveillance [continuous indirect monitoring]: Masimo, safety checks, hourly rounds, Q4 vitals, NKE Patient-specific fall prevention interventions for sensory deficits provided, if applicable: N/A * Plan of Care - Lela Mckee RN - 02/25/2021 3:05 PM EDT OUTCOME EVALUATION NOTE: OUTCOME SUMMARY: Narcisa had his at the bedside this afternoon and he was happy to see her. He is disappointed not to be leaving today. Had vanco changed from capsule to liquid form as patient prefers to swallow this way. Other meds were crushed/open and mixed in pudding. Walked around unit with minimal assistance. Continues to be bruised. Mostly quiet, but resting comfortably, moves well in bed. Will continueto monitor. PLAN MOVING FORWARD: Likely to be leaving tomorrow to go home with family help and VNA services. * Care Management - Chris Salazar RN - 02/25/2021 2:11 PM EDT OFFICE OF CARE MANAGEMENT PROGRESS NOTE LOS: Hospital Day 7 days Chart reviewed, care reviewed with primary team and at interdisciplinary rounds. Patient continues to meet inpatient level of care related to: polytrauma Functional status prior to admission: Independent Home Environment: People in home: spouse. Current Living Arrangements: home/apartment/condo. Current Functional Ability: Assistive Person and Equipment DME used at home: none DME Needed at DC: None Patient is insured through: Primary Insurance: [facility] OPT [facility] / Plan: [facility] / Product Type: *No Product type* / Secondary Insurance: N/A Prescription Coverage: Yes Preferred Pharmacy: [facility], [place] [address] [place] [address] [facility], [place] - [address] [facility] [address] [facility] [place] [address] [facility] - [place], [place] - [address] [facility] [address] [facility] [address] Last Physical Therapy Recommendation: home with home health, home with supervision (dgt reports pt and family would prefer home 24/7 S+home PT ) with (TBD) Last Occupational Therapy Recommendation: to be determined pending medical status & functional progression with to be determined Plan for discharge is: Home w/ Services Transportation: family or friend will provide Barriers to discharge: Discharge planning Plan going forward: Potential discharge home today w/ VNA services. The patient/novelties sales representative has been provided a list of Home Health Agencies/DME vendors which serve their preferred geographic area. A letter describing our affiliations was reviewed with them and they were educated about their right to choose where referrals are placed. Patient requests referral to [facility] [employer]. PHONE: [phone] FAX: [phone] Referral routed to the Manager Talent Acquisition for matching with agency/vendor and to provide any required information. CM will continue to follow and assist with discharge planning and coordination of care as indicated. Anticipated Date of Discharge: 02/26/2021 at 2:00 PM Chris Salazar RN Case Manager Pgr: [phone] * Plan of Care - Vlad Whatley RN - 02/24/2021 5:52 PM EDT OUTCOME EVALUATION NOTE: OUTCOME SUMMARY: Patient was A/O x4, intermittent;y whifty, confused, and forgetful. VSS throughout shift. Pain controlled. Chronic mckeon in place. Encouraged turning to offload weight from sacrum. Seizure pads to bed side rails. Morning meds given at 08:30 to coincide with patient's home schedule, refusing tylenoland bowel meds. Hand dressing changed by wound care. Will continue to monitor. PLAN MOVING FORWARD: Pain control Mobilize Seizure precautions Wound care D/c planning INDIVIDUALIZED FALL PREVENTION: Patient-specific fall risk factors per assessment: [current deficits]: Hospital environment, generalized weakness Assistance [level of assistance required for transfers and ambulation]: SBA assist w/ FWW Supervision [direct monitoring required during toileting and ADLs]: Within arms reach assist with ADL's Surveillance [continuous indirect monitoring]: Masimo, safety checks, hourly rounds, Q4 vitals, NKE Patient-specific fall prevention interventions for sensory deficits provided, if applicable: N/A * Consult Note - Katie Madrid RN - 02/24/2021 11:04 AM EDT Images from the original note were not included. Certified Wound Care Nurse Note Situation: Asked to see Narcisa Jayce by Lamar Sandoval, RN for pt came in with stage 2? pressure ulcer on sacrum. open skin, redness. Background: eD-H notes reviewed for history, admitting diagnosis and active problem list. Flowsheet noted coccyx to be red,blanchable since admission. Patient [place] [facility] [place] [facility] [place] [facility] Wound Assessment and Care Provided: Patient seen this morning in room 325-A in bed, reason for visit explained to patient, permission received to assess skin. Patient reports left hand dressing changes to be better now with little to no pain. Kerlix and gauze removed, gauze was sticking a bit and wound cleanser used to soak the dressing to release. Adaptic Touch left in place. Hydrogel applied, Mepilex Lite applied over the Adaptic Touch and secured with Kerlix. Trialed Tubifast over all however this put too much pressure on the hand for the patient and therefore was removed. FURNACE COOLER assisted patient to turn in the bed, Mepielx Border Sacrum removed. Periwound pinkness is blanchable however redspot at the coccyx does not kalyn, patient has no pain with touching the area but does say sometimes in bed it hurts and he has to move off of it. There is a white spot as well and there is a small open area within this. Cleansed with dermal wound cleanser and Mepilex Border Sacrum applied. Discussed turning side to side only with patient as well as discussed diet. Boost pudding was on the overbed table, states he has protein powder at home to use and that he does see a dietitian. He is very thin. The following pictures were taken: Left hand: Coccyx: Dewayne Score: 16 Last Pressure Ulcer Prevention assessment: Shift Pressure Injury Prevention Occiput: No Injury Thoracic Spine: No Injury Sacral: Existing Injury Ischial - left: No Injury Ischial - right: No Injury Heel - left: No Injury Heel - right: No Injury Elbow - left: No Injury Elbow - right: No Injury Device Sites: O2 sat monitor, SCD's/venodynes, IV sites, mckeon Other Sites: ID band Existing Wounds: Wound 02/19/21 0000 hand laceration;skin tear (Active) Wound Cleaning wound cleanser 02/24/21 1100 Wound Interventions Dressing changed 02/24/21 1100 Dressing dressing removed;dressing applied;gauze;foam;hydrogel 02/24/21 1100 Wound Image 02/24/21 1100 Pressure Injury 02/22/21 0700 Stage 2 (Active) Area pale white;redness 02/24/21 1100 Wound Cleaning wound cleanser 02/24/21 1100 Wound Interventions Dressing changed 02/24/21 1100 Dressing dressing removed;dressing applied;foam 02/24/21 1100 Wound Image 02/24/21 1100 Nutritional Status Wt Readings from Last 1 Encounters: 02/22/21 58.8 kg (129 lb 10.1 oz) Body mass index is 18.6 kg/m??. Labs Lab Results Component Value Date ALBUMIN 4.2 04/03/2015 WBC 7.8 02/24/2021 WBC 7.8 02/23/2021 WBC 6.7 02/22/2021 HGB 11.6 (L) 02/24/2021 HGB 11.1 (L) 02/23/2021 HGB 11.3 (L) 02/22/2021 HCT 36.7 (L) 02/24/2021 HCT 33.9 (L) 02/23/2021 HCT 34.6 (L) 02/22/2021 Nutritional Intake Nutrition Diet/Nutrition Received: regular Diet/Feeding Assistance: none Diet/Feeding Tolerance: good Intake (%): 75% Current bed: [facility] with padded siderails Assessment: Skin tear on left arm is slowly healing, changed to Mepilex Lite instead of gauze due to gauze adhering. The patient is with a stage 2 pressure injury on the coccyx that was present on admission. Offloading as much as possible will be helpful. Wound Care Recommendations: Mepilex Border Sacrum dressing to sacrum-Assess beneath the dressing daily and reapply, sealing edges with skin prep. Change every 3 days and PRN: 1. Cleanse skin with dermal wound cleanser. 2. Apply Mepilex Border Sacrum dressing making sure to apply directly against the skin. 3. Seal edges with skin prep. If the Mepilex Border Sacrum needs to be changed more than once a day due to soiling then discontinue and use shield barrier wipes and apply zinc barrier cream to denuded skin L hand: Adaptic Touch, Hydrogel and gauze. Nursing to change dressing daily: 1. Leave the Adaptic Touch contact layer in place on the wound bed for all daily wound care. The Adaptic Touch contact layer can be changed every 7 days (last changed 02/20/21) 1. Cleanse the wound through the Adaptic Touch layer with wound cleanser and gauze. 2. Apply Hydrogel over the Adaptic Touch. 3. Cover with Mepilex Lite and secure with Kerlix. Refer to adult/pediatric pressure ulcer prevention job aid in the clinical policy library highlighting the following points: Mobility: Turn and reposition every 2 hours and document in ED-H, side to side only. Place a pillow above and below sacral area to off load pressure to the sacrum Offload pressure from heels by placing pillows lengthwise beneath legs while in bed. Offload pressure from heels by adjusting length of foot of bed. Activity: Implement reminder system for repositioning every two hours while in bed Limit time OOB to the chair to 2 hour intervals. (Including placing bed in chair position, or having HOB higher than 30 degrees) Use a Bragster chair cushion beneath patient at all times while in the chair. Reinforce teaching to shift weight every 15 minutes while in the chair. This can be done by shifting weight side to side to off load pressure to ischial tuberosities. Place a pillow at the lumbar spine to off load pressure to the sacral spine. Nutrition: Evaluate nutrition/hydration status. Encourage patient to eat or drink nutritional supplements as ordered. Assist with snacks and meals as appropriate. Follow Nutrition Services recommendations. Wound Care Services will follow. He will benefit from VNA services upon discharge and follow up in [facility]. ?? Discussed plan with: /JOHN/PA: Charleen Colby RN: Vlad Please contact KATIE MADRID RN on pager [phone] or the wound care team at [phone] or pager [phone] with skin and wound care concerns or questions. * Plan of Care - Vlad Whatley RN - 02/23/2021 4:35 PM EDT OUTCOME EVALUATION NOTE: OUTCOME SUMMARY: Patient was A/O x4, intermittently whifty. VSS throughout shift. Pain controlled. Mckeon cathter in place draining yellow urine. Encouraged to turn to offload weight from sacrum. Seizure pads on bed side rails. Morning meds given at 08:30. Dressing to left hand changed this shift per orders. Will continue to monitor. PLAN MOVING FORWARD: Pain control Mobilize PT/OT Monitor for seizures Wound care D/c planning INDIVIDUALIZED FALL PREVENTION: Patient-specific fall risk factors per assessment: [current deficits]: Hospital environment, generalized weakness Assistance [level of assistance required for transfers and ambulation]: SBA Supervision [direct monitoring required during toileting and ADLs]: min assist with ADL's Surveillance [continuous indirect monitoring]: Masimo, safety checks, hourly rounds, Q4 vitals, NKE Patient-specific fall prevention interventions for sensory deficits provided, if applicable: N/A * Plan of Care - Vlad Whatley RN - 02/22/2021 4:30 PM EDT Patient arrived to floor via bed. Patient A&O x4, lungs clear, heart rate regular. Patient hasnormoactive bowel sounds. Patient has a dressing to their left hand covering a laceration, noted to be clean dry and intact. Patient has an IV in their left arm saline locked. Patient states their painlevel is 2/10. Patient has an abrasion above their left eye, left eye sclera is red. Patient has a foam dressing to their sacrum covering a pressure injury.Mckeon catheter in place draining yellow urine. Neuro check is benign. Patient denies chest pain, shortness of breath, numbness or tingling. Patient oriented to room, call mccracken, IS. RN will monitor patient. * Initial Assessments - Chris Salazar RN - 02/21/2021 3:15 PM EDT Office of Care Management Initial Assessment Chris Salazar RN reviewed record and discussed patient with Care Team. Source of Information: Team, bedside nurse, medical record, and Chart Review Reason for Hospitalization: fall Last COVID test: None Past medical History: Past Medical History: Diagnosis Date ??? AAA (abdominal aortic aneurysm) ??? CVA (cerebral vascular accident) 09/28/2019 ??? EtOH dependence h/o quit 09/2019 after stroke ??? HTN (hypertension) ??? Nicotine dependence ??? 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 Seizures ??? Thoracic aortic aneurysm ??? Trauma Hospitalizations Within the Past 30 Days: no previous admission in last 30 days Current Decision-Making Capacity: Self Advance Care Planning: Attempt Cardiopulmonary Resuscitation - Inpatient <no information> -Advanced Directive: No, declines If AD's have not been completed Darrel Eduardo would be surrogate decision maker per [place] surrogate decision making law. (Only good for 90 days) Any [place] [facility] abide [place] law. The hierarchy for surrogate decision making is: (a) Patient???s spouse, or civil union partner or common law spouse unless there is a divorce proceeding, separation agreement, or restraining order limiting that person???s relationship with the patient. (b) Any adult son or daughter of the patient. (c) Either parent of the patient. (d) Any adult brother or sister of the patient. (e) Any adult grandchild of the patient. (f) Any grandparent of the patient. (g) Any adult aunt, uncle, niece, or nephew of the patient. (h) A close friend of the patient. (i) The agent with financial power of estate attorney or a conservator appointed in accordance with RSA 464-A. (j) The guardian of the patient???s estate. Current Coping/Education/Information Needs: n/a Current Functional Ability: Assistive Equipment and Assistive Person Functional Status Prior to Admission: Independent Home Environment: People in home: spouse. Current Living Arrangements: home/apartment/condo. Current DME: none Home Address [address] [place] [id number] Social & Family Supports: Extended Emergency Contact Information Primary Emergency Contact: Darrel Eduardo Relation: Spouse Secondary Emergency Contact: Barrie Eduardo Relation: Parent Current Care Provided by: self Provides Primary Care For: no one Caregiver if needed: spouse Quality of Family relationships: helpful, involved, supportive Community Resources being provided currently: none Behavioral Health History: None Substance Use/Abuse Social History Tobacco Use Smoking Status Current Every Day Smoker ??? Packs/day: 1.00 ??? Types: Cigarettes ??? Start date: 1963 Tobacco Comment rolls on cigarettes smokes less then 20 a day Other Pertinent/Service Specific Information: n/a Health/Prescription Coverage: Primary Insurance: [employer] Payor: [employer] / Plan: [place] OPT COMMUNITY CARE / Product Type: *No Product type* / Secondary Insurance: N/A Prescription Coverage: Yes Preferred Pharmacy: [facility], [place] [address] [facility] [address] [facility] [place] - [address] [facility] [place] [address] [facility] - [place], [place] - [address] [facility] [address] [facility] [address] [place] Status: Patient is a : Yes Are you enrolled in the [place] for your healthcare?: Yes Are you here under your VA benefit?: Yes Primary Care Provider: Alfredo Montoya DO [phone] Patient/Caregiver Goals of Treatment: Return home Potential Needs for Transition of Care: rehabilitation services Agency Referrals: n/a Transportation: no concerns Transportation Anticipated: family or friend will provide Concerns to be Addressed: discharge planning Assessment: Narcisa Eduardo is a 75yo male here for subarachnoid hemorrhage and subdural hemorrhage. Lives at home w/ spouse. Insured w/ Medicare and VA. Gets medications filled at [facility] in [place]. Plan: Depending on recovery anticipate will discharge home w/ VNA services vs longterm facility. A member of the Care Management team will continue to monitor progress, follow for continuity of care and assist with transition of care planning. Chris Salazar RN Case Manager Pgr: [phone] * Consult Note - Carmelita Mcdaniels RN - 02/20/2021 1:20 PM EDT Images from the original note were not included. Certified Wound Care Nurse Note Situation: Asked to see Narcisa Ruedaen by Charleen Colby MD for L arm wound following trauma Background: eD-H notes reviewed for history, admitting diagnosis and active problem list. Patient had a fall from a bench prior to admission, and patient belives his L arm and hand made contact with pavement. Wound Assessment and Care Provided: Consult performed in conjunction with Katie Madrid RN CWOCN. Patient seen this morning in room N526A in bed, reason for visit explained to patient, permission received to assess skin. Of note, patient is left-hand dominant. The L arm and hand was found to be wrapped in Kerlix with Xerform on the wound bed. Patient reports the area is extremely tender. The Kerlix gauze was gently snipped away. Topical lidocaine was applied through the Xeroform over the L hand and allowed 10 minutes to soak through. RN at bedside to administer Tylenol for discomfort. The Xeroform gauze was further soaked withnormal saline for another 10 minutes to loosen it up for removal. Once removed, the wound bed was bleeding due to trauma from dressing removal. The wound was cleansed with wound cleanser. Hemostasis was achieved. Adaptic Touch contact layer was applied to the wound bed, followed by a layer of Hydrogel, followed by gauze square, and secured with gauze roll. Dewayne Score: 17 Nutritional Status Wt Readings from Last 1 Encounters: 12/30/20 62 kg (136 lb 9.6 oz) There is no height or weight on file to calculate BMI. Labs Lab Results Component Value Date ALBUMIN 4.2 04/03/2015 WBC 9.2 02/20/2021 WBC 11.4 (H) 02/19/2021 WBC 10.3 (H) 02/18/2021 HGB 12.5 (L) 02/20/2021 HGB 12.1 (L) 02/19/2021 HGB 11.7 (L) 02/18/2021 HCT 37.0 (L) 02/20/2021 HCT 36.7 (L) 02/19/2021 HCT 34.8 (L) 02/18/2021 Current bed: [facility] Assessment: Full thickness trauma wound to the L hand with vascular wound bed. The wound is clean, no s/s infection. The Adaptic Touch contact layer will provide atraumatic dressing changes going forward. Wound Care Recommendations: L hand: Adaptic Touch, Hydrogel and gauze. Nursing to change dressing daily: 1. Leave the Adaptic Touch contact layer in place on the wound bed for all daily wound care. The Adaptic Touch contact layer can be changed every 7 days (last changed 02/20/21) 1. Cleanse the wound through the Adaptic Touch layer with wound cleanser and gauze. 2. Apply Hydrogel over the Adaptic Touch. 3. Cover with gauze square and secure with Kerlix. Follow hospital standard for pressure injury prevention and skin care. Refer to adult/pediatric pressure injury prevention job aid in the clinical policy library. Discussed plan with: /JOHN/PA: Charleen Colby RN: Mamta Please contact Carmelita Mcdaniels RN on pager [phone] or the wound care team at [phone] or pager [phone] with skin and wound care concerns or questions. Electronically Signed By: Carmelita Mcdaniels RN * Consult Note - Katie Madrid RN - 02/20/2021 10:30 AM EDT Certified Wound Care Nurse Note: Attempted to see patient, he was being taken to X-Ray. Wound Care will follow up at another time. * Plan of Care - Romelia Richardson RN - 02/20/2021 6:09 AM EDT Neurologically intact. Breathing spontaneously in room air and maintaining oxygenation. Hemodynamically stable. Tolerated pills and water. slept throughout the night. Mckeon care done and smell was offensive with small amt of pus., notified and ordered for it to be removed, pt reused; verbalized that his urologist asked for it to stay in place for another procedure, team made aware and ok with having the mckeon in. Plan is to talk with urologist. IVF D/C * Initial Assessments - Sofai Dawn E, OT - 02/19/2021 2:30 PM EDT Occupational Therapy Evaluation Patient profile: Narcisa Eduardo is a 75 y.o. male admitted on 02/18/2021 for ground level fall from standing with +LOC. Patient presents with the following injuries: 1. ??Multiple sites of subarachnoid and intraventricular hemorrhage No significant mass effect. 2. ??Small subdural hematoma along the falx. 3. ??Interval increased size of a 1.1 cm left convexity subdural hygroma. 4.??Left periorbital soft tissue hematoma Past Medical History: Diagnosis Date ??? AAA [...] [address] [facility] Dr Ko ??? PROSTATE BIOPSY 11/23/2019 Social History: Patient lives with hi Home Setup: tub/shower. Patient unclear, will need to verify with DME: shower chair Baseline ADL/Mobility: assists with ADLs, does all IADLs. Has chronic indwelling mckeon. Statesdoesn't use device Precautions/Special Considerations: FALL, mckeon Subjective: Whatever needs to be done she does Objective: Seen today for OT evaluation. Seen in collaboration with PT Cognitive Status/Behavior: ?? Behavior / Mood: alert and cooperative ?? Alert and oriented to: person, place and situation, year. Thought it was February. Inconsistencies noted: patient stated his helps with everything then insisted he would take care of toilet hygiene. When reminded of that he said he could wait until she arrived (patient was expecting and daughter to arrive any moment. He stated several times that their arrival should be imminent. Also denied any previous falls ?? Follows commands: requires increased time and requires repetition ?? Attention: requires cues to redirect ?? Safety awareness: mild impairment ?? Vision & Perception: ?? reports wears glasses occasionally for watching tv. Can open L eye but prefers to keep it closeddue to swelling Communication: WFL, though tended to monosyllabic answers Range of motion, strength, coordination: Hand dominance: right Bilateral UEs are within functional limitations LE limitations: functional but reports feel weak Sensation: subjectively intact Activities of Daily Living: Self-feeding: indep Grooming: set up Dressing: dependent to don socks. Min assist with underwear management for toileting Bathing: not formally assessed, anticipate mod assist , mainly due to balance issues Toileting: Transfer: CGA hand hold x2 Hygiene: CGA Functional Mobility: Supine to sit: verbal cues, HOB elevated, CGA, monitoring of lines Sit to stand: CGA x2 with hand held assist Ambulation: CGA with 2 hand hold assist, in the room for ADLs. Pt adamantly refusing use of walker;appears he probably had a bad experience in the past, and he kept insisting the wheels would go right out from under him Stand to sit: CGA with verbal cues, monitoring of various lines Sit to supine: not assessed, left sitting in recliner Balance: Sitting balance: good static. Fair dynamic Standing balance: fair with CGA Vitals: At Rest With Activity SpO2 58% 98% Heart Rate 54 98 Pain: did not c/o of pain, more that legs felt weak Skin: Left periorbital soft tissue, small lacerations jose knees, L hand/wrist/forearm bandage Education: patient has been educated on Role of occupational therapy/rehabilitation, Transfers, ADL, Positioning, Safety, Functional Mobility, Activity pacing/Energy conservation and Recommendations and needs reinforcement. understanding. Patient status, treatment, and mobility recommendations discussed with nursing. Assessment: Pt has been seen for occupational therapy evaluation. Narcisa Eduardo presents with the following performance skill deficits and client factors: decreased activity tolerance, decreased strength, decreased sitting / standing balance, decreased postural control and compromised mobility status. These performance deficits have led to activity limitations and participation restrictions in the following areas of occupation: dressing, bathing and transfers / mobility. Patient alert and oriented to standard questions; however, inconsistencies noted during conversations. was not present to validate information. Per patient, she helps with ADLs. Pt adamantly denied using a walker, hand held assist x2 for ADLs in the room. Pt walks with shuffling gait, requires CGA for safety at this time. Will behelpful to have input from as to patient's baseline status. Pt would benefit from further inpatient OT interventions to address performance deficits and maximize participation and independence with occupations of daily living. Equipment needs at discharge: to be determined Anticipated Discharge Disposition: to be determined pending medical status & functional progression, Other Recommendations: ?? transfer to recliner chair with hand held assist, ?? Hand held assist to the bathroom Other Recommendations: No other consults recommended at this time. Goals: To be achieved by 03/01/21 Pt and will demonstrate good safety with functional transfers and mobility for ADLs Pt will be supervision functional sit to stand transfers from variety of surfaces Pt will be supervision functional mobility household distances Pt will be set up for UE ADLs seated EOB Plan: OT: Therapy Frequency (OT): 2-4 times/wk Total Minutes, Occupational Therapy: 40 2017 OT Evaluation Code Rationale: ?? Diagnosis & Pertinent Co-Morbidities affecting Plan of Care: see PMHx ?? Occupational Profile & Client History: Brief Expanded Extensive x ?? Assessment of Occupational Performance: 1-3 performance deficits 3-5 performance deficits x 5 + performance deficits ?? Clinical Decision Making: Low Moderate High x Clinical decision making of moderate complexity using standardized patient assessment instrument and measurable assessment of functional outcome. Pager: [phone] Dawn Black OT 02/19/2021 Occupational Therapy Rehabilitation Department * Consult Note - Alpa Alvarado MD - 02/19/2021 12:01 AM EDT Neurology Consultation Note - 02/18/2021 Patient name: Narcisa Eduardo Date of : 1945 PCP: Alfredo Montoya DO Primary Team: Trauma (#[id number]) CC: seizure medication management HPI: Narcisa Eduardo is a 75 y.o. male with PMHx of R MCA stroke (ESUS, Sep 2019) c/b seizure disorder, L SDH s/p MMA embolization (Aug 2020), follicular lymphoma in remission, prostate cancer s/p radiation who presents following traumatic fall. Consulted for recommendations of ASM management. Account taken from Narcisa and his , Darrel. Following a visit to PCP in [place], asked himto wait on a bench while she brought the car around. She took a few steps when she heard uh oh. He had lost his balance and fallen down. She was unable to break his fall although she tried. He sustained a head injury but did not lose consciousness. Did not have any movements or appearance of seizure activity. He is currently on lacosamide 150mg BID. He has tolerated this dose since November 2020. He takes his medications regularly. Denies any recent seizures. At time of interview, he reports to be at his cognitive baseline and able to give a full history. History of post-stroke/SDH epilepsy. Previously on Keppra (d/c for behavioral changes), VPA and ultimately switched to Lacosamide this past November. Seizures described as eyes rolled backward, whole body stiffened and then began shaking, he was unresponsive, lasted about 1-2 minutes Follows with neurologist, Dr. Garcia. Current Medications: Scheduled Meds: ??? lacosamide 150 mg Oral BID ??? famotidine 20 mg Oral BID Or ??? famotidine 20 mg Intravenous BID ??? [START ON 02/19/2021] acetaminophen 975 mg Oral Q6H MERCEDES ??? [START ON 02/19/2021] tamsulosin 0.4 mg Oral Daily ??? valproic acid 250 mg Oral 2 times per day ??? atorvastatin 80 mg Oral QPM Continuous Infusions: ??? lactated Ringers PRN Meds:.HYDROmorphone Past Medical & Surgical History: Past Medical History: Diagnosis Date ??? AAA [...] ??? COLONOSCOPY 2012 date is [address] [facility] Dr Ko ??? PROSTATE BIOPSY 11/23/2019 Home Medications: No current facility-administered medications on file prior to encounter. Current Outpatient Medications on File Prior to Encounter Medication Sig Dispense Refill ??? lacosamide (Vimpat) 100 mg Tablet TAKE ONE TABLET BY MOUTH TWICE A DAY FOR SEIZURES ??? tamsulosin (Flomax) 0.4 mg Capsule TAKE 1 CAPSULE BY MOUTH EVERY DAY 30 MINUTES AFTER THE SAME MEALTIME EACH DAY FOR PROSTATE/URINARY SYMPTOMS. ??? multivit with minerals/lutein (MULTIVITAMIN 50 PLUS ORAL) Take by mouth. ??? aspirin EC 81 mg Tablet, Delayed Release (E.C.) TAKE ONE TABLET BY MOUTH EVERY DAY TO PREVENT STROKE/HEART ATTACK OR FOR PAIN/SWELLING/INFLAMMATION ??? folic acid (Folvite) 1 mg Tablet TAKE ONE TABLET BY MOUTH EVERY DAY VITAMIN/NUTRITION SUPPLEMENT ??? valproate (Depakene) 250 mg/5 mL Solution TAKE ONE TABLESPOONFUL BY MOUTH EVERY TWELVE HOURS ??? potassium chloride ER (K-Dur/Klor-Con) 10 mEq Tablet Sustained Release TAKE ONE TABLET BY MOUTHEVERY DAY TO SUPPLEMENT POTASSIUM ??? ergocalciferol, vitamin D2, (VITAMIN D ORAL) Take by mouth daily. ??? atorvastatin (Lipitor) 80 mg Tablet Take 80 mg by mouth daily. ??? lisinopriL (Prinivil;Zestril) 10 mg Tablet Take 10 mg by mouth daily. Allergy: Allergies Allergen Reactions ??? Peanut Anaphylaxis ??? Contrast [Iodine And Iodide Containing Products] Hives Family History: Family History Problem Relation Age of Onset ??? Prostate Cancer Father Social History: Social History Socioeconomic History ??? Marital status: Spouse name: Not on file ??? Number of children: 3 ??? Years of education: Not on file ??? Highest education level: Not on file Occupational History ??? 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 Occupation: [employer] Comment: [employer] Tobacco Use ??? Smoking status: Current Every [...] Not on file Other Topics Concern ??? Not on file Social History Narrative ??? Not on file [...] Week: ??? Minutes of Exercise per Session: Tobacco: current cigarette smoker (0.5-1 PPD for >20 years) EtOH: none Drugs: none Lives with in [place], [place]. Served in [employer]. Stationed in [employer], [place] and [place]. Physical Exam: Vitals: Temp: -- Heart Rate: [61-65] Resp: [12-22] BP: (115-146)/(61-89) SpO2: [94 %-98 %] Heart Rate from SpO2: [58 bpm-64 bpm] Gen: Apparent stated age, well nourished, well developed, awake, alert, NAD Neck: Limited range of motion due to stiffness HEENT: dry MM, Left orbital edema, bruising to the point of his eyelid being shut at rest, dried blood around lips Ext: Distal BUE abrasions Neuro Exam: MS: Awake, alert, oriented to person, place, year, month Able to state months of year backwards, mimic complex hand gestures No dysarthria, language fluent, cooperative with neuro exam CN: R Pupil 4mm reactive, R EOMI, R visual singh full to confrontation Facial sensation intact to light touch No facial asymmetry (left facial swelling) Hard of hearing, no hearing aids Palate elevates symmetrically, tongue protrudes midline SCM and trap strength intact Motor: Normal bulk and tone. No pronator drift. Hand rolling intact. Moving all 4 ext spontaneously and antigravity. Sensation: Intact to light touch throughout Coordination: No tremor Gait: Deferred Labs: Recent Results (from the past 24 hour(s)) Basic Metabolic Panel (non-fasting) Result Value Ref Range Glucose Lvl 84 65 - 199 mg/dL BUN 5 (L) 10 - 20 mg/dL Creatinine 0.65 (L) 0.80 - 1.50 mg/dL Sodium 142 135 - 145 mmol/L Potassium 3.3 (L) 3.5 - 5.0 mmol/L Chloride 106 98 - 107 mmol/L CO2 31 22 - 31 mmol/L Anion Gap 5 5 - 15 mmol/L Calcium 8.7 8.5 - 10.5 mg/dL Estimated GFR 95 >=60 mL/min/1.73 m?? Prothrombin Time Result Value Ref Range PT 11.6 9.4 - 12.5 sec INR 1.0 APTT Result Value Ref Range PTT 27 25.0 - 37.0 sec Ethanol Level Result Value Ref Range Ethanol Lvl <100 <=99 mg/L Urinalysis with reflex Culture Specimen: Clean Catch Urine Result Value Ref Range Glucose UA Negative Negative mg/dL Protein UA Trace (A) Negative mg/dL Bilirubin UA Negative Negative mg/dL Urobilinogen UA Normal Normal mg/dL pH UA 8.0 5.0 - 8.0 Blood UA Moderate (A) Negative mg/dL Ketones UA Negative Negative mg/dL Nitrite UA Positive (A) Negative Leukocytes UA Moderate (A) Negative mcL Appearance UA Cloudy (A) Clear Spec [place] UA 1.011 1.005 - 1.030 Color UA Yellow Yellow Culture Reflexed Yes ABO/Rh Typing Result Value Ref Range ABORh Type A Pos Antibody screen Result Value Ref Range Ab Screen Interp Negative Expires at 2359 on: 02/21/2021 Hemogram Result Value Ref Range WBC 10.3 (H) 4.0 - 9.5 x10(3)/mcL RBC 3.77 (L) 4.58 - 5.54 x10(6)/mcL Hemoglobin 11.7 (L) 13.7 - 16.5 gm/dL Hematocrit 34.8 (L) 40.5 - 48.5 % MCV 92.3 82.9 - 93.1 fL MCH 31.0 27.5 - 32.1 pg MCHC 33.6 32.0 - 35.7 gm/dL Platelets 111 (L) 145 - 357 x10(3)/mcL RDWSD 46.0 (H) 36.0 - 45.0 fL RDWCV 13.5 11.4 - 13.8 % MPV 9.1 7.6 - 12.9 fL nRBC % Auto 0.0 % nRBC Abs Auto 0.000 0.000 - 0.000 x10(3)/mcL Differential, Automated Result Value Ref Range Neutrophils % 81.8 % Neutr Abs (ANC) 8.43 (H) 1 - 6 x10(3)/mcL Lymphocytes % 9.8 % Lymphocytes Abs 1.0 0.9 - 3.2 x10(3)/mcL Monocytes % 6.3 % Monocyte Abs 0.6 0.3 - 0.9 x10(3)/mcL Eosinophils % 1.1 % Eosinophils Abs 0.1 0.0 - 0.4 x10(3)/mcL Basophils % 0.4 % Basophils Abs 0.0 0.0 - 0.1 x10(3)/mcL Immature Gran % 0.60 % Kylah Gran Abs 0.06 (H) 0.00 - 0.04 x10(3)/mcL Gold Tube HOLD Result Value Ref Range Gold Hold Sample in lab. ABORH Recheck Status Result Value Ref Range ABORH Recheck Order Order Placed Urinalysis Microscopic Exam Result Value Ref Range RBC UA 41 (H) 0 - 3 /HPF WBC UA 46 (H) 0 - 3 /HPF Bacteria UA Many (A) None /HPF Squam Epith UA 1 <=4 /HPF Hyaline Cast UA 34 (H) 0 - 2 /LPF Type and Screen Validity Result Value Ref Range T&S only valid at [facility] [facility] Rapid Drug Screen, Urine (CHRIS Request) Result Value Ref Range CHRIS Conf Requested No CHRIS Requested See Comment Rapid Drug Screen w/o Confirmation, Urine Result Value Ref Range U Barbiturates Screen None Detected None Detected U Benzodiazepines Screen None Detected None Detected U Cocaine Screen None Detected None Detected U Methadone Metabolites Screen None Detected None Detected U Opiate Screen Presumptive Pos (A) None Detected U Cannabinoid Screen None Detected None Detected U Oxycodone Screen None Detected None Detected U Buprenorphine Screen None Detected None Detected U Fentanyl Screen None Detected None Detected U Tricyclics Screen None Detected None Detected U Ethanol Screen None Detected None Detected U Amphetamines Screen None Detected None Detected U Adulterants Screen None Detected None Detected Diagnostic Tests and Imaging: Results for orders placed or performed during the hospital encounter of 02/18/21 XR Chest AP and Pelvis AP Trauma (Generic) (Exam End: 02/18/2021 8:07 PM) Impression Chest: 1. Possible mild pulmonary vascular congestion. 2. No focal consolidation, pneumothorax or pleural effusions. Pelvis: 1. No acute fracture or traumatic malalignment of the pelvis or proximal femurs. Thank you for letting us participate in the care of this patient. If you are a health care provider and have any questions regarding this report, please contact the number below. For patients who have questions please contact the health continuum of care manager that requested your imaging first. Electronically signed by: Corey Rivers MD, [facility] ([phone]), at 02/18/2021 8:[address] Head & Cervical Spine wo Contrast (Generic) (Exam End: 02/18/2021 8:43 PM) Impression 1. Multiple sites of subarachnoid and intraventricular hemorrhage as detailed above. No significant mass effect. 2. Small subdural hematoma along the falx. 3. Interval increased size of a 1.1 cm left convexity subdural hygroma. 4. Extensive chronic dental disease associated with chronic maxillary sinus inflammation and reactive osseous changes. 5. No acute facial fractures. 6. No acute cervical spine fractures. Thank you for letting us participate in the care of this patient. If you are a health care provider and have any questions regarding this report, please contact the number below. For patients who have questions please contact the health continuum of care manager that requested your imaging first. Thoracic Spine Reconstruction (Exam End: 02/18/2021 8:43 PM) Impression 1. No direct evidence of acute traumatic injury in the chest, abdomen, pelvis, or thoracolumbar spine. Nonspecific small amount of perihepatic fluid, below the attenuation expected for hemorrhage, favored to represent sequela of liver disease, given history of alcohol use disorder. 2. Complex cystic lesion in the left interpolar kidney measuring 3.8 cm, indeterminate, recommend further characterization with ultrasound. 3. Eccentric wall thickening along the greater curvature as stomach, a nonspecific finding, may represent sequela of chronic gastritis; however, a malignant process, especially in this patient with prior history of lymphoma, is not definitively excluded. Recommend further characterization with direct visualization via endoscopy in the appropriate clinical setting. 4. Diffuse circumferential wall thickening of the urinary bladder and rectum, along with diffuse pelvic soft tissue stranding, may represent sequelae of prostate cancer radiation treatments, which ended in April 2020, per electronic medical record. 5. Diffusely increased attenuation of the liver measuring approximately 70 Hounsfield units, indeterminate finding, correlate with medication regimen. 6. Stable aneurysmal dilatation of the ascending, infrarenal aorta, and left common iliac artery. 7. Dilatation of the main pulmonary artery to 3.3 cm may indicate pulmonary hypertension. Preliminary report signed by: Tariq Gamboa at 02/18/2021 10:[address] Lumbar Spine Reconstruction (Exam End: 02/18/2021 8:43 PM) Impression 1. No direct evidence of acute traumatic injury in the chest, abdomen, pelvis, or thoracolumbar spine. Nonspecific small amount of perihepatic fluid, below the attenuation expected for hemorrhage, favored to represent sequela of liver disease, given history of alcohol use disorder. 2. Complex cystic lesion in the left interpolar kidney measuring 3.8 cm, indeterminate, recommend further characterization with ultrasound. 3. Eccentric wall thickening along the greater curvature as stomach, a nonspecific finding, may represent sequela of chronic gastritis; however, a malignant process, especially in this patient with prior history of lymphoma, is not definitively excluded. Recommend further characterization with direct visualization via endoscopy in the appropriate clinical setting. 4. Diffuse circumferential wall thickening of the urinary bladder and rectum, along with diffuse pelvic soft tissue stranding, may represent sequelae of prostate cancer radiation treatments, which ended in April 2020, per electronic medical record. 5. Diffusely increased attenuation of the liver measuring approximately 70 Hounsfield units, indeterminate finding, correlate with medication regimen. 6. Stable aneurysmal dilatation of the ascending, infrarenal aorta, and left common iliac artery. 7. Dilatation of the main pulmonary artery to 3.3 cm may indicate pulmonary hypertension. Preliminary report signed by: Tariq Gamboa at 02/18/2021 10:[address] Face wo Contrast (Exam End: 02/18/2021 8:43 PM) Impression 1. Multiple sites of subarachnoid and intraventricular hemorrhage as detailed above. No significant mass effect. 2. Small subdural hematoma along the falx. 3. Interval increased size of a 1.1 cm left convexity subdural hygroma. 4. Extensive chronic dental disease associated with chronic maxillary sinus inflammation and reactive osseous changes. 5. No acute facial fractures. 6. No acute cervical spine fractures. Thank you for letting us participate in the care of this patient. If you are a health care provider and have any questions regarding this report, please contact the number below. For patients who have questions please contact the health continuum of care manager that requested your imaging first. Chest Abdomen Pelvis wo Contrast (Exam End: 02/18/2021 8:43 PM) Impression 1. No direct evidence of acute traumatic injury in the chest, abdomen, pelvis, or thoracolumbar spine. Nonspecific small amount of perihepatic fluid, below the attenuation expected for hemorrhage, favored to represent sequela of liver disease, given history of alcohol use disorder. 2. Complex cystic lesion in the left interpolar kidney measuring 3.8 cm, indeterminate, recommend further characterization with ultrasound. 3. Eccentric wall thickening along the greater curvature as stomach, a nonspecific finding, may represent sequela of chronic gastritis; however, a malignant process, especially in this patient with prior history of lymphoma, is not definitively excluded. Recommend further characterization with direct visualization via endoscopy in the appropriate clinical setting. 4. Diffuse circumferential wall thickening of the urinary bladder and rectum, along with diffuse pelvic soft tissue stranding, may represent sequelae of prostate cancer radiation treatments, which ended in April 2020, per electronic medical record. 5. Diffusely increased attenuation of the liver measuring approximately 70 Hounsfield units, indeterminate finding, correlate with medication regimen. 6. Stable aneurysmal dilatation of the ascending, infrarenal aorta, and left common iliac artery. 7. Dilatation of the main pulmonary artery to 3.3 cm may indicate pulmonary hypertension. Preliminary report signed by: Tariq Gamboa at 02/18/2021 10:47 PM Assessment and Plan: Narcisa Eduardo is a 75 y.o. male who presents after a traumatic fall. Account of events leading to and after his fall are not consistent with seizure. Appears to be stable on current lacosamide dose for the past 2 months. Exam is remarkable for traumatic injuries to his left orbit/face and left arm/hand. CTH consistent with multiple sites of IVH/SAH. No recommended changes to current anti-seizure medication regimen. He is however at increase risk of seizures with hemorrhages which can decrease seizure threshold. # Recommendations - Continue lacosamide 150mg BID - PT/OT ?? Consult service will continue to follow patient. x Recommendations are above, please page if further consultation required. ?? Alpa Alvarado MD Neurology, PGY-2 General Neurology Consult Service # [id number] 02/18/2021 Associated attestation - Leandro Bowen MD - 02/19/2021 12:06 PM EDT Neurology Attending Note I certify that I have seen and examined and discussed Narcisa Eduardo on 02/19/[address] Alvarado and Baudilio, Resident Physician. The note reflects the patient's history of presentation, subjective findings, and physical findings. The assessment and plan were formulated together in discussion and I have personally reviewed all relevant studies. Ragini Bowen MD Department of Neurology [facility] * Consult Note - Chloé Hummel APRN - 02/18/2021 8:21 PM EDT Neurosurgery Inpatient Consultation Note Date & Time of Consult: 02/18/2021 8:22 PM Referring Service: Trauma Surgery Referring Attending: Dr. Estrada Neurosurgery Attending: Dr. Damian Vazquez Place of Consult: ED1A ID: Name: Narcisa Eduardo, 75 y.o. male Admission Date: 02/18/2021 CC: SDH HPI: History is obtained primarily from outside hospital medical record and eDH. Patient is a poor historian. This is a 75 y.o. 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 Mr. Eduardo reportedly was going to a urology appointment today to have his chronic indwelling foleyremoved. He was sitting outside on a bench and his went to get the car. Per the outside hospital records, his was trying to help him into the car when she heard him groaning and turned around to see him falling. Per the OSH records the reported that it seemed as though he lost his balance, falling and striking the LEFT side of his face. There was reported brief loss of consciousness. The patient is amnestic to the events. He was taken to the ED at [facility] where he was found to have an enlarging LEFT subdural hygroma, parafalcine SDH, and tSAH. He is currently complaining of LEFT eye pain. He was given Keppra 1 gram at the outside hospital at 1650 Per review of medical records the patient takes 81mg ASA daily PMH: Past Medical History: Diagnosis Date ??? AAA [...] [address] [facility] Dr Ko ??? PROSTATE BIOPSY 11/23/2019 Medications: No current facility-administered medications on file prior to encounter. Current Outpatient Medications on File Prior to Encounter Medication Sig Dispense Refill ??? lacosamide (Vimpat) 100 mg Tablet TAKE ONE TABLET BY MOUTH TWICE A DAY FOR SEIZURES ??? tamsulosin (Flomax) 0.4 mg Capsule TAKE 1 CAPSULE BY MOUTH EVERY DAY 30 MINUTES AFTER THE SAME MEALTIME EACH DAY FOR PROSTATE/URINARY SYMPTOMS. ??? multivit with minerals/lutein (MULTIVITAMIN 50 PLUS ORAL) Take by mouth. ??? aspirin EC 81 mg Tablet, Delayed Release (E.C.) TAKE ONE TABLET BY MOUTH EVERY DAY TO PREVENT STROKE/HEART ATTACK OR FOR PAIN/SWELLING/INFLAMMATION ??? folic acid (Folvite) 1 mg Tablet TAKE ONE TABLET BY MOUTH EVERY DAY VITAMIN/NUTRITION SUPPLEMENT ??? valproate (Depakene) 250 mg/5 mL Solution TAKE ONE TABLESPOONFUL BY MOUTH EVERY TWELVE HOURS ??? potassium chloride ER (K-Dur/Klor-Con) 10 mEq Tablet Sustained Release TAKE ONE TABLET BY MOUTHEVERY DAY TO SUPPLEMENT POTASSIUM ??? ergocalciferol, vitamin D2, (VITAMIN D ORAL) Take by mouth daily. ??? atorvastatin (Lipitor) 80 mg Tablet Take 80 mg by mouth daily. ??? lisinopriL (Prinivil;Zestril) 10 mg Tablet Take 10 mg by mouth daily. Scheduled Meds: Continuous Infusions: PRN Meds:.fentaNYL (PF) Allergies: Allergies Allergen Reactions ??? Peanut Anaphylaxis ??? Contrast [Iodine And Iodide Containing Products] Hives Family Hx: Family History Problem Relation Age of Onset ??? Prostate Cancer Father Social Hx: Social History Socioeconomic History ??? Marital status: Spouse name: Not on file ??? Number of children: 3 ??? Years of education: Not on file ??? Highest education level: Not on file Occupational History ??? 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 Occupation: [employer] Comment: [employer] Tobacco Use ??? Smoking status: Current Every [...] Not on file Other Topics Concern ??? Not on file Social History Narrative ??? Not on file [...] Week: ??? Minutes of Exercise per Session: Tobacco use - former smoker, quit 09/2020 ETOH - denies Denies illicit drug use Vitals: Vitals: 02/18/21195802/18/21199902/18/212014 BP: 146/82 115/89 146/74 Pulse: 62 64 63 Resp: 12 16 SpO2: 97% 98% 97% Physical Exam: -Gen: Lying flat on ED stretcher in no acute distress, awake and alert -HEENT: Cervical collar. LEFT periorbital ecchymosis and edema. No perimastoid ecchymosis. No rhinorrhea or otorrhea. -Neuro: Mental Status/Cognitive: Awake, alert, oriented x3 GCS: 15 Speech: Fluent, appropriate. Naming and repetition intact. Cranial Nerves: PERRL 3mm reactive bilaterally CN II - Visual acuity and singh grossly intact CN III, IV, - EOMI CN V - Sensation intact in V1,2 and 3 distributions CN VII - No facial asymmetry/droop CN VIII - Intact hearing bilaterally to finger rub CN IX, X - Palate and uvula midline CN XI - Trapezius 5/5 bilat CN XII - Tongue midline Tone: Normal Power: No pronator drift Segment Muscle Action Left Right C5 Deltoid Shoulder Abduction 4 5 C6 Biceps Elbow flexion 4 5 C6 Extensor carpi radialis Wrist extension 4 5 C7 Triceps Elbow extension 4 5 C8 Finger flexors Grasp 4 5 T1 Interossei Finger abduction 4 5 L2 Iliopsoas Hip flexion 5 5 L3 Quadriceps Knee extension 5 5 L4 Tibialis anterior Dorsiflexion 5 5 L5 Extensor hallucis Great toe extension 5 5 S1 Gastrocnemius Plantar flexion 5 5 Gait: Not assessed Sensation in the extremities: Light touch: Intact x 4 Cerebellar exam: No dysmetria No intention tremor Labs: No results for input(s): WBC, HGB, PLATELET in the last 72 hours. No results for input(s): NA, K, CL, CO2, BUN, CREATININE in the last 72 hours. No results for input(s): PT, INR in the last 72 hours. Imaging: CT Head wo Contrast 02/18/21: COMPARISON: CT head 12/07/2020. Brain MRI 08/26/2020. ?? FINDINGS: CT head: Encephalomalacia involves the right frontal lobe operculum. Several punctate foci of hemorrhage identified within this encephalomalacia. ?? Rounded focus of hemorrhage measuring 1.1 cm present along the right side of the septum pellucidum. ?? Left convexity subdural hygroma measures 1.1 cm in size. This collection previously measured 5 mm. A small amount of isodense extra-axial material overlies the left parietal lobe and may represent a subacute subdural hematoma. Stability of the small amount of isodense extra-axial area overlying the left frontal lobe. ?? Subarachnoid hemorrhage is present about the left sylvian fissure and basal cisterns, especially about the right ambient cistern. Trace subarachnoid hemorrhage in the right frontal lobe. ?? Small amount of intraventricular blood layers dependently within the occipital horns of the lateral ventricles. ?? Trace amount of sub-callosal hemorrhage about the genu. ?? Small amount of subdural blood around the right tentorium. ?? Ventricles are unchanged in size and configuration compared to prior. ?? Left periorbital soft tissue hematoma is identified. Mastoid air cells are clear. No skull fractures. ?? CT face: Dental disease with dental caries and periapical lucencies. Mild mucosal thickening of bilateral maxillary sinuses associated with diffuse osseous wall thickening indicating chronic inflammation likely related to the chronic dental disease. Reactive osseous changes also identified within the bilateral pterygoid plates. No facial fractures. ?? CT cervical spine: No evidence for acute malalignment. No acute fracture deformities. No prevertebral soft tissue swelling. Emphysematous changes in the lung apices noted. ?? IMPRESSION 1. Multiple sites of subarachnoid and intraventricular hemorrhage as detailed above. No significant mass effect. ?? 2. Small subdural hematoma along the falx. ?? 3. Interval increased size of a 1.1 cm left convexity subdural hygroma. ?? 4. Extensive chronic dental disease associated with chronic maxillary sinus inflammation and reactive osseous changes. ?? 5. No acute facial fractures. ?? 6. No acute cervical spine fractures. Assessment: This is a 75 y.o. 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 He is neurologicaly at his baseline. Plan: -Admit to Trauma Surgery, Dr. Estrada -Recommend consult to Neurology for AED management [pt is followed by Neurology here for AED management] -Close neurological observation, q2H checks -Spine precautions per Trauma/Orthopaedics -Pt has had repeat imaging, no need for additional imaging -BP control, keep SBP<160 -Hold anticoagulation/antiplatelets, SCDs while in bed for DVT ppx -Further management per primary team documented in this encounter Plan of Treatment Upcoming Encounters Date Type Department Care Team (Late st Contact Info) Description 11/09/2024 10:30 AM EDT Office Visit Radiation Oncology at [address] [phone] Taya De La Vega PA [facility] [place] [address] 11/13/2024 2:00 PM EDT Office Visit Hematology/Oncology at [address] [phone] Kirt Kennedy MD [facility] DR HEM[place] [address] Alem Lazaro APRN [address] [place] [address] DR [place] [address] documented as of this encounter Procedures Procedure Name Priority Date/Time Associated Diagnosis Comments CT HEAD WO CONTRAST (GENERIC) STAT 02/26/2021 10:07 AM EDT HEMOGRAM Routine 02/26/2021 4:04 AM EDT DIFFERENTIAL, AUTOMATED Routine 02/26/2021 4:04 AM EDT HC CBC,PLT & AUTO DIFF Routine 4:04 AM EDT HC PHOSPHORUS, SERUM Routine 02/26/2021 4:04 AM EDT HC MAGNESIUM, SERUM Routine 02/26/2021 4 :04 AM EDT BASIC METABOLIC PANEL Routine 02/26/2021 4:04 AM EDT HEMOGRAM Routine 02/25/2021 2:56 AM EDT DIFFERENTIAL, AUTOMATED Routine 02/25/2021 2:56 AM EDT HC CBC,PLT & AUTO DIFF Routine 2:56 AM EDT HC PHOSPHORUS, SERUM Routine 02/25/2021 2:56 AM EDT HC MAGNESIUM, SERUM Routine 02/25/2021 2 :56 AM EDT BASIC METABOLIC PANEL Routine 02/25/2021 2:56 AM EDT HEMOGRAM Routine 02/24/2021 4:24 AM EDT DIFFERENTIAL, AUTOMATED Routine 02/24/2021 4:24 AM EDT HC VENIPUNCTURE Routine 02/24/2021 4:24 AM EDT HC PHOSPHORUS, SERUM Routine 02/24/2021 4:24 AM EDT HC MAGNESIUM, SERUM Routine 02/24/2021 4 :24 AM EDT BASIC METABOLIC PANEL Routine 02/24/2021 4:24 AM EDT HEMOGRAM Routine 02/23/2021 3:17 AM EDT DIFFERENTIAL, AUTOMATED Routine 02/23/2021 3:17 AM EDT HC VENIPUNCTURE Routine 02/23/2021 3:17 AM EDT HC PHOSPHORUS, SERUM Routine 02/23/2021 3:17 AM EDT HC MAGNESIUM, SERUM Routine 02/23/2021 3 :17 AM EDT BASIC METABOLIC PANEL Routine 02/23/2021 3:17 AM EDT HEMOGRAM Routine 02/22/2021 4:25 AM EDT DIFFERENTIAL, AUTOMATED Routine 02/22/2021 4:25 AM EDT HC CBC,PLT & AUTO DIFF Routine 4:25 AM EDT HC PHOSPHORUS, SERUM Routine 02/22/2021 4:25 AM EDT HC MAGNESIUM, SERUM Routine 02/22/2021 4 :25 AM EDT BASIC METABOLIC PANEL Routine 02/22/2021 4:[address] HEAD WO CONTRAST (GENERIC) Routine 02/22/2021 4:[address] HEAD WO CONTRAST (GENERIC) STAT 02/21/2021 3:51 PM EDT POCT GLUCOSE Routine 02/21/2021 2:38 PM EDT HEMOGRAM Routine 02/21/2021 1:15 AM EDT DIFFERENTIAL, AUTOMATED Routine 02/21/2021 1:15 AM EDT HC VENIPUNCTURE Routine 02/21/2021 1:15 AM EDT BASIC METABOLIC PANEL Routine 02/21/2021 1:15 AM EDT HEMOGRAM Routine 02/20/2021 11:55 AM EDT DIFFERENTIAL, AUTOMATED Routine 02/20/2021 11:55 AM EDT HC CBC,PLT & AUTO DIFF Routine 11:55 AM EDT HC PHOSPHORUS, SERUM Routine 02/20/2021 11:55 AM EDT HC MAGNESIUM, SERUM Routine 02/20/2021 1 1:55 AM EDT BASIC METABOLIC PANEL Routine 02/20/2021 11:55 AM EDT DUPLEX FOR DVT BILAT LEGS Routine 02/20/2021 11:46 AM EDT Bilateral leg edema XR FLUORO BARIUM SWALLOW (MODIFIED/VIDEO SWALLOW PHARYNX) Routine 02/20/2021 11:31 AM EDT ECHO COMPLETE Routine 02/19/2021 4:17 PM EDT Syncope, unspecified syncope type CAROTID DUPLEX, BILATERAL Routine 02/19/2021 8:50 AM EDT Syncope, unspecified syncope type HEMOGRAM STAT 02/19/2021 12:40 AM EDT DIFFERENTIAL, AUTOMATED STAT 02/19/2021 12:40 AM EDT HC VENIPUNCTURE STAT 02/19/2021 12:40 AM EDT HC MAGNESIUM, SERUM STAT 02/19/2021 1 2:40 AM EDT BASIC METABOLIC PANEL STAT 02/19/2021 12:[address] THORACIC SPINE RECONSTRUCTION STAT 02/18/2021 8:[address] LUMBAR SPINE RECONSTRUCTION STAT 02/18/2021 8:[address] HEAD AND CERVICAL SPINE WO CONTRAST STAT 02/18/2021 8:[address] FACE WO CONTRAST STAT 02/18/2021 8 :[address] CHEST, ABDOMEN, PELVIS WO CONTRAST STAT 02/18/2021 8:43 PM EDT RAPID DRUG SCREEN, URINE STAT 02/18/2021 8:14 PM EDT RAPID DRUG SCREEN W/O CONFIRMATION, URINE STAT 02/18/2021 8:14 PM EDT VALPROIC ACID LEVEL, TOTAL Routine 02/18/2021 8:14 PM EDT TYPE AND SCREEN VALIDITY STAT 02/18/2021 8:13 PM EDT URINALYSIS MICROSCOPIC EXAM STAT 02/18/2021 8:13 PM EDT ABORH RECHECK STATUS STAT 02/18/2021 8:13 PM EDT LACOSAMIDE LEVEL STAT 02/18/2021 8:13 PM EDT HEMOGRAM STAT 02/18/2021 8:13 PM EDT DIFFERENTIAL, AUTOMATED STAT 02/18/2021 8:13 PM EDT GOLD TUBE HOLD STAT 02/18/2021 8:13 PM EDT ABO/RH TYPING STAT 02/18/2021 8:13 PM EDT URINALYSIS WITH REFLEX CULTURE STAT 02/18/2021 8:13 PM EDT HC PARTIAL THROMBOPLASTIN TIME STAT 02/18/2021 8:13 PM EDT HC PROTHROMBIN TIME STAT 02/18/2021 8 :13 PM EDT HC CBC,PLT & AUTO DIFF STAT 8:13 PM EDT ANTIBODY SCREEN STAT 02/18/2021 8:13 PM EDT HC ANTIBODY DETECTION,CAPTURE-R STAT 02/18/2021 8:13 PM EDT URINE CULTURE STAT 02/18/2021 8:13 PM EDT HC ALCOHOL, BLOOD STAT 02/18/2021 8:1 3 PM EDT VALPROIC ACID LEVEL, TOTAL STAT 02/18/2021 8:13 PM EDT BASIC METABOLIC PANEL STAT 02/18/2021 8:13 PM EDT BLOOD GAS VENOUS POC Routine 02/18/2021 8:09 PM EDT XR CHEST AP AND PELVIS AP TRAUMA STAT 02/18/2021 8:07 PM EDT FILM LIBRARY STORAGE ONLY DX UPPER EXTREMITY STAT 02/18/2021 4:57 PM EDT FILM LIBRARY STORAGE ONLY DX CHEST STAT 02/18/2021 4:56 PM EDT FILM LIBRARY STORAGE ONLY CT HEAD AND SPINE STAT 02/18/2021 4:55 PM EDT documented in this encounter Results * CT Head wo Contrast (Generic) (03/14/2021 9:48 AM EDT) Anatomical Region Laterality Modality Head Computed Tomogra phy 03/14/2021 10:0 1 AM EDT Impressions 03/14/2021 11:50 AM EDT 1. Unchanged left subdural hygroma with similar fashion [id number] midline shift compared to prior CT. 2. [...] who have questions please contact the health continuum of care manager that requested your imaging first. ? Electronically signed by: Jeffrey Sultana MD, [facility] ([phone]), at 03/14/2021 11:50 AM Narrative 03/14/2021 11:50 AM EDT EXAMINATION: CT [...] hemorrhage or mass. No new areas of ventura-white matter signal abnormality. Periventricular and pontine hypodensity likely representing chronic ischemic changes secondary to small vessel disease. Calvarium and cranial soft tissues are unremarkable. Slight mucosal thickening in the bilateral maxillary sinus with associated cortical thickening consistent with chronic sinus disease. The mastoid air cells are clear. There is cerumen impaction in the right external auditory canal. Procedure Note Jeffrey Sultana MD - 03/14/2021 EXAMINATION: CT HEAD WO [...] hemorrhage or mass. No new areas of ventura-white mattersignal abnormality. Periventricular and pontine hypodensity likely representingchronic ischemic changes secondary to small vessel disease. Calvarium and cranial soft tissues are unremarkable. Slight mucosalthickening in the bilateral maxillary sinus with associated cortical thickeningconsistent with chronic sinus disease. The mastoid air cells are clear. There iscerumen impaction in the right external auditory canal. IMPRESSION 1. Unchanged left subdural hygroma with similar fashion [id number] shift compared to prior CT. 2. Expected [...] patients who have questions please contactthe health continuum of care manager that requested your imaging first. Electronically signed by: Jeffrey Sultana MD, [facility]([phone]), at 03/14/2021 11:50 AM Damian Vazquez MD IMG CT ORDERABLES * CT Head wo Contrast (Generic) (02/26/2021 10:07 AM EDT) Anatomical Region Laterality Modality Head Computed Tomogra phy 02/26/2021 10:2 4 AM EDT Impressions 02/26/2021 11:30 AM EDT 1. ??Unchanged left subdural collection with mass effect and 5 mm [id number] midline shift. 2. ??Evolution of left-sided subarachnoid hemorrhage. Unchanged intraventricular/septum pellucidum hemorrhage. 3. ??Remote right MCA infarction involving the right frontal lobe. 4. ??Bulky calcified atheromatous disease of the intradural right vertebral artery. Consider CT angiogram for further evaluation. I have personally reviewed the image(s) and the resident's interpretation and agree with the findings, Marissa Alejandre at 02/26/2021 11:30 AM Thank you for letting us participate in the care of this patient. ??If you are a health care provider and have any questions regarding this report, please contact the number below. ??For patients who have questions please contact the health continuum of care manager that requested your imaging first. ? Narrative 02/26/2021 11:30 AM EDT EXAMINATION: CT HEAD WO CONTRAST (GENERIC) CLINICAL HISTORY: Altered mental status TECHNIQUE: CT head performed without intravenous contrast administration. COMPARISON: CT head 02/22/2021 FINDINGS: Unchanged hypodense left subdural collection with associated sulcal narrowing of the left frontal and parietal lobe sulci and left to right midline shift of 5 mm. Unchanged prominence of the interhemispheric extra-axial space to the right of the falx. Unchanged dense signal within the left posterior sulci consistent with trace subarachnoid hemorrhage, with some redistribution or evolution. Similar focus of hemorrhage along the anterior left and right septum pellucidum. No new areas of hemorrhage. Encephalomalacia of the right frontal lobe is unchanged. There is mild cortical atrophy with widening of the sylvian fissures and mild ex vacuo dilatation of the supratentorial ventricles. Stable periventricular white matter changes. No new areas of ventura matter signal abnormality. Mastoid air cells are clear. Bilateral cerumen impaction. Mild mucosal thickening of the maxillary sinuses with thickening of the sinus davis consistent with chronic sinus disease. Atherosclerotic calcification of the intradural vertebral arteries, right worse than left and of the cavernous ICAs. Procedure Note Marissa Alejandre MD - 02/26/2021 EXAMINATION: CT HEAD WO CONTRAST (GENERIC) CLINICAL HISTORY: Altered mental status TECHNIQUE: CT head performed without intravenous contrast administration. COMPARISON: CT head 02/22/2021 FINDINGS: Unchanged hypodense left subdural collection with associated sulcalnarrowing of the left frontal and parietal lobe sulci and left to right midline shiftof 5 mm. Unchanged prominence of the interhemispheric extra-axial space to theright of the falx. Unchanged dense signal within the left posterior sulciconsistent with trace subarachnoid hemorrhage, with some redistribution orevolution. Similar focus of hemorrhage along the anterior left and right septumpellucidum. No new areas of hemorrhage. Encephalomalacia of the right frontal lobe is unchanged. There is mildcortical atrophy with widening of the sylvian fissures and mild ex vacuo dilatationof the supratentorial ventricles. Stable periventricular white matterchanges. No new areas of ventura matter signal abnormality. Mastoid air cells areclear. Bilateral cerumen impaction. Mild mucosal thickening of the maxillarysinuses with thickening of the sinus davis consistent with chronic sinusdisease. Atherosclerotic calcification of the intradural vertebral arteries, rightworse than left and of the cavernous ICAs. IMPRESSION 1. Unchanged left subdural collection with mass effect and 5 orvzmj-sx-pnuya midline shift. 2. Evolution of left-sided subarachnoid hemorrhage. Unchanged intraventricular/septum pellucidum hemorrhage. 3. Remote right MCA infarction involving the right frontal lobe. 4. 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 Consider CT angiogram for further evaluation. I have personally reviewed the image(s) and the resident's interpretationand agree with the findings, Marissa Alejandre at 02/26/2021 11:30 AM Thank you for letting us participate in the care of this patient. If youare a health care provider and have any questions regarding this report,please contact the number below. For patients who have questions please contactthe health continuum of care manager that requested your imaging first. Nj Kimball AUTISM SPECIALIST IMG CT ORDERABLES * (ABNORMAL) Differential, Automated (02/26/2021 4:04 AM EDT) Neutrophil % 72.4 % [facility] Neutrophil Absolute 4.95 1.70 - 6.10 x10(3)/mc L [facility] Lymph % 14.5 % [facility] Lymphocytes Abs 1.0 0.9 - 3.2 x10(3)/[facility] Monocyte % 8.9 % [facility] Monocyte Abs 0.6 0.3 - 0.9 x10(3)/[facility] Eos % 3.1 % [facility] Eosinophils Abs 0.2 0.0 - 0.4 x10(3)/[facility] Basophil % 0.4 % [facility] Baso Absolute 0.0 0.0 - 0.1 x10(3)/[facility] Immature Gran % 0.70 % [facility] Comment: Immature granulocytes(IG's)percentage and absolute count will include metamyelocytes, myelocytes, and promyelocytes. Blood smears from CBCs yielding IG's will be scanned manually for concordance. If this scan disagrees with the automated IG or if promyelocytes are noted, a manual differential will be performed. Immature Gran Absolute 0.05(H) 0.00 - 0.04 x10(3)/[facility] Blood 02/26/2021 4:04 AM EDT 02/26/2021 4:29 AM EDT Narrative Resulting Agency Comment Spec In Lab Pam Padilla APRN HEMATOLOGY ORDERAB LES Performing Organization Address City/State/[facility] Co de Phone Number [facility] [place] [address] * (ABNORMAL) Hemogram (02/26/2021 4:04 AM EDT) White Blood Cell 6.8 4.0 - 9.5 x10(3)/[facility] Red Blood Cell 3.80(L) 4.58 - 5.54 x10(6)/[facility] Hemoglobin 11.7(L) 13.7 - 16.5 gm/dL [facility] Hematocrit 36.4(L) 40.5 - 48.5 % [facility] Mean Cell Volume 95.8(H) 82.9 - 93.1 fL [facility] Mean Cell Hemoglobin 30.8 27.5 - 32.1 pg [facility] Mean Cell Hemoglobin Concentration 32.1 32.0 - 35.7 gm/dL [facility] Platelet 168 145 - 357 x10(3)/mc L [facility] RDW Standard Deviation 50.1(H) 36.0 - 45.0 fL [facility] RDW coefficient of variation 14.4(H) 11.4 - 13.8 % [facility] Mean Platelet Volume 8.9 7.6 - 12.9 [facility] NRBC% auto 0.0 % [facility] NRBC Absolute 0.000 0.000 - 0.000 x10(3)/mc L [facility] Blood 02/26/2021 4:04 AM EDT 02/26/2021 4:29 AM EDT Narrative Resulting Agency Comment Spec In Lab Pam Padilla APRN HEMATOLOGY ORDERAB LES Performing Organization Address City/[facility]/ZIP Co de Phone Number [facility] [place] [address] * Phosphorus (02/26/2021 4:04 AM EDT) Phosphorus 3.6 2.5 - 4.5 mg/dL [facility] Blood 02/26/2021 4:04 AM EDT 02/26/2021 4:29 AM EDT Narrative Resulting Agency Comment Spec In Lab Pam Padilla APRN CHEMISTRY ORDERABL ES Performing Organization Address [facility]/ZIP Co de Phone Number [facility] [place] [address] * Magnesium (02/26/2021 4:04 AM EDT) Magnesium 0.85 0.69 - 1.07 mmol/L [facility] Blood 02/26/2021 4:04 AM EDT 02/26/2021 4:29 AM EDT Narrative Resulting Agency Comment Spec In Lab Pam J Randy AUTISM SPECIALIST CHEMISTRY ORDERABL ES [facility] [place] [address] * (ABNORMAL) Basic Metabolic Panel (non-fasting) (02/26/2021 4:04 AM EDT) Glucose 103 65 - 199 mg/dL [facility] Comment:Diabetes: >=200 mg/d L plus symptoms Blood Urea Nitrogen 11 10 - 20 mg/dL [facility] Creatinine 0.70(L) 0.80 - 1.50 mg/dL [facility] Sodium 139 135 - 145 mmol/L [facility] Potassium 4.1 3.5 - 5.0 mmol/L [facility] Comment: Please note: ??Patients with WBC >100,000 may have falsely elevated Potassium levels. ??For accurate Potassium quantification in these patients send serum separator tube (gold top) for subsequent determinations. ??Contact the Clinical Chemistry Laboratory if there are any questions. Chloride 105 98 - 107 mmol/L [facility] Carbon Dioxide 27 22 - 31 mmol/L [facility] Anion Gap 7 5 - 15 mmol/L [facility] Calcium 9.1 8.5 - 10.5 mg/dL [facility] Est Glomerular Filtration Rate 92 >=60 mL/min/1. 73 m?? [facility] Comment: This patient? s estimated glomerular filtration rate (eGFR) is between 92 mL/min/1.73 m2 (patients with less muscle mass per kg body weight) and 107 mL/min/1.73 m2 (patients with more muscle mass per kg body weight) as determined by the CKD-EPI equation. Assessment of eGFR is not appropriate when creatinine concentrations are rapidly changing. For clinical decisions where creatinine clearance will affect therapy, a 24-hour urine creatinine clearance may be advised. Assignment of CKD stage 1 - 5 for patients with an eGFR near the transition point between stages may be based on clinical assessment of muscle mass and symptoms in addition to eGFR. Blood 02/26/2021 4:04 AM EDT 02/26/2021 4:29 AM EDT Narrative Resulting Agency Comment Spec In Lab Pam Padilla AUTISM SPECIALIST CHEMISTRY ORDERABL ES [facility] [place] [address] * (ABNORMAL) Differential, Automated (02/25/2021 2:56 AM EDT) Neutrophil % 74.3 % [facility] Neutrophil Absolute 5.26 1.70 - 6.10 x10(3)/mc L [facility] Lymph % 14.3 % [facility] Lymphocytes Abs 1.0 0.9 - 3.2 x10(3)/mc L [facility] Monocyte % 7.2 % [facility] Monocyte Abs 0.5 0.3 - 0.9 x10(3)/mc L [facility] Eos % 3.1 % [facility] Eosinophils Abs 0.2 0.0 - 0.4 x10(3)/mc L [facility] Basophil % 0.3 % [facility] Baso Absolute 0.0 0.0 - 0.1 x10(3)/mc L [facility] Immature Gran % 0.80 % [facility] Comment: Immature granulocytes(IG's)percentage and absolute count will include metamyelocytes, myelocytes, and promyelocytes. Blood smears from CBCs yielding IG's will be scanned manually for concordance. If this scan disagrees with the automated IG or if promyelocytes are noted, a manual differential will be performed. Immature Gran Absolute 0.06(H) 0.00 - 0.04 x10(3)/mc L [facility] Blood 02/25/2021 2:56 AM EDT 02/25/2021 3:18 AM EDT Narrative Resulting Agency Comment Spec In Lab Pam Padilla AUTISM SPECIALIST HEMATOLOGY ORDERAB LES [facility] [place] [address] * (ABNORMAL) Hemogram (02/25/2021 2:56 AM EDT) White Blood Cell 7.1 4.0 - 9.5 x10(3)/[facility] LABORATORY Red Blood Cell 3.72(L) 4.58 - 5.54 x10(6)/[facility] LABORATORY Hemoglobin 11.4(L) 13.7 - 16.5 gm/dL [facility] Hematocrit 35.2(L) 40.5 - 48.5 % [facility] Mean Cell Volume 94.6(H) 82.9 - 93.1 [facility] Mean Cell Hemoglobin 30.6 27.5 - 32.1 pg [facility] Mean Cell Hemoglobin Concentration 32.4 32.0 - 35.7 gm/dL [facility] Platelet 154 145 - 357 x10(3)/[facility] LABORATORY RDW Standard Deviation 49.1(H) 36.0 - 45.0 [facility] RDW coefficient of variation 14.2(H) 11.4 - 13.8 % [facility] Mean Platelet Volume 9.0 7.6 - 12.9 [facility] NRBC% auto 0.0 % [facility] NRBC Absolute 0.000 0.000 - 0.000 x10(3)/[facility] LABORATORY Blood 02/25/2021 2:56 AM EDT 02/25/2021 3:18 AM EDT Narrative Resulting Agency Comment Spec In Lab Pam Padilla APRN HEMATOLOGY ORDERAB LES Performing Organization Address [facility] Co de Phone Number [facility] [place] [address] * Phosphorus (02/25/2021 2:56 AM EDT) Phosphorus 3.5 2.5 - 4.5 mg/dL [facility] Blood 02/25/2021 2:56 AM EDT 02/25/2021 3:18 AM EDT Narrative Resulting Agency Comment Spec In Lab Pam Padilla APRN CHEMISTRY ORDERABL ES Performing Organization Address [facility] de Phone Number [facility] [place] [address] * Magnesium (02/25/2021 2:56 AM EDT) Magnesium 0.81 0.69 - 1.07 mmol/L [facility] Blood 02/25/2021 2:56 AM EDT 02/25/2021 3:18 AM EDT Narrative Resulting Agency Comment Spec In Lab Pam Padilla APRN CHEMISTRY ORDERABL ES Performing Organization Address [facility] Co de Phone Number [facility] [place] [address] * (ABNORMAL) Basic Metabolic Panel (non-fasting) (02/25/2021 2:56 AM EDT) Glucose 111 65 - 199 mg/dL [facility] Comment:Diabetes: >=200 mg/d L plus symptoms Blood Urea Nitrogen 10 10 - 20 mg/dL [facility] Creatinine 0.69(L) 0.80 - 1.50 mg/dL [facility] Sodium 139 135 - 145 mmol/L [facility] Potassium 4.1 3.5 - 5.0 mmol/L [facility] Comment: Please note: ??Patients with WBC >100,000 may have falsely elevated Potassium levels. ??For accurate Potassium quantification in these patients send serum separator tube (gold top) for subsequent determinations. ??Contact the Clinical Chemistry Laboratory if there are any questions. Chloride 104 98 - 107 mmol/L [facility] Carbon Dioxide 27 22 - 31 mmol/L [facility] Anion Gap 8 5 - 15 mmol/L [facility] Calcium 8.9 8.5 - 10.5 mg/dL [facility] Est Glomerular Filtration Rate 93 >=60 mL/min/1. 73 m?? [facility] Comment: This patient? s estimated glomerular filtration rate (eGFR) is between 93 mL/min/1.73 m2 (patients with less muscle mass per kg body weight) and 108 mL/min/1.73 m2 (patients with more muscle mass per kg body weight) as determined by the CKD-EPI equation. Assessment of eGFR is not appropriate when creatinine concentrations are rapidly changing. For clinical decisions where creatinine clearance will affect therapy, a 24-hour urine creatinine clearance may be advised. Assignment of CKD stage 1 - 5 for patients with an eGFR near the transition point between stages may be based on clinical assessment of muscle mass and symptoms in addition to eGFR. Blood 02/25/2021 2:56 AM EDT 02/25/2021 3:18 AM EDT Narrative Resulting Agency Comment Spec In Lab Pam Padilla APRN CHEMISTRY ORDERABL ES [facility] [place] [address] * Differential, Automated (02/24/2021 4:24 AM EDT) Neutrophil % 77.1 % [facility] Neutrophil Absolute 6.02 1.70 - 6.10 x10(3)/[facility] LABORATORY Lymph % 12.0 % [facility] Lymphocytes Abs 0.9 0.9 - 3.2 x10(3)/[facility] LABOR[facility]ORY Monocyte % 7.0 % [facility] Monocyte Abs 0.6 0.3 - 0.9 x10(3)/[facility] LABOR[facility] Eos % 2.8 % [facility] Eosinophils Abs 0.2 0.0 - 0.4 x10(3)/[facility] LABOR[facility] Basophil % 0.6 % [facility] Baso Absolute 0.0 0.0 - 0.1 x10(3)/[facility] LABORATORY Immature Gran % 0.50 % [facility] Comment: Immature granulocytes(IG's)percentage and absolute count will include metamyelocytes, myelocytes, and promyelocytes. Blood smears from CBCs yielding IG's will be scanned manually for concordance. If this scan disagrees with the automated IG or if promyelocytes are noted, a manual differential will be performed. Immature Gran Absolute 0.04 0.00 - 0.04 x10(3)/[facility] LABORATORY Blood 02/24/2021 4:24 AM EDT 02/24/2021 5:09 AM EDT Narrative Resulting Agency Comment Spec In Lab Pam Padilla APRN HEMATOLOGY ORDERAB LES [facility] [place] [address] * (ABNORMAL) Hemogram (02/24/2021 4:24 AM EDT) White Blood Cell 7.8 4.0 - 9.5 x10(3)/mc L [facility] Red Blood Cell 3.71(L) 4.58 - 5.54 x10(6)/mc L [facility] Hemoglobin 11.6(L) 13.7 - 16.5 gm/dL [facility] Hematocrit 36.7(L) 40.5 - 48.5 % [facility] Mean Cell Volume 98.9(H) 82.9 - 93.1 fL [facility] Mean Cell Hemoglobin 31.3 27.5 - 32.1 pg [facility] Mean Cell Hemoglobin Concentration 31.6(L) 32.0 - 35.7 gm/dL [facility] Platelet 137(L) 145 - 357 x10(3)/mc L [facility] RDW Standard Deviation 50.1(H) 36.0 - 45.0 fL [facility] RDW coefficient of variation 14.0(H) 11.4 - 13.8 % [facility] Mean Platelet Volume 8.9 7.6 - 12.9 fL [facility] NRBC% auto 0.0 % [facility] NRBC Absolute 0.000 0.000 - 0.000 x10(3)/mc L [facility] Blood 02/24/2021 4:24 AM EDT 02/24/2021 5:09 AM EDT Narrative Resulting Agency Comment Spec In Lab Pam Padilla APRN HEMATOLOGY ORDERAB LES Performing Organization Address City/[facility]/ZIP Co de Phone Number [facility] [place] [address] * Phosphorus (02/24/2021 4:24 AM EDT) Phosphorus 3.4 2.5 - 4.5 mg/dL [facility] Blood 02/24/2021 4:24 AM EDT 02/24/2021 5:09 AM EDT Narrative Resulting Agency Comment Spec In Lab Pam Padilla APRN CHEMISTRY ORDERABL ES [facility] [place] [address] * Magnesium (02/24/2021 4:24 AM EDT) Magnesium 0.78 0.69 - 1.07 mmol/L [facility] Blood 02/24/2021 4:24 AM EDT 02/24/2021 5:09 AM EDT Narrative Resulting Agency Comment Spec In Lab Pam J Randy AUTISM SPECIALIST CHEMISTRY ORDERABL ES [facility] [place] [address] * (ABNORMAL) Basic Metabolic Panel (non-fasting) (02/24/2021 4:24 AM EDT) Glucose 88 65 - 199 mg/dL [facility] Comment:Diabetes: >=200 mg/d L plus symptoms Blood Urea Nitrogen 8(L) 10 - 20 mg/dL [facility] Creatinine 0.51(L) 0.80 - 1.50 mg/dL [facility] Sodium 137 135 - 145 mmol/L [facility] Potassium 4.0 3.5 - 5.0 mmol/L [facility] Comment: Please note: ??Patients with WBC >100,000 may have falsely elevated Potassium levels. ??For accurate Potassium quantification in these patients send serum separator tube (gold top) for subsequent determinations. ??Contact the Clinical Chemistry Laboratory if there are any questions. Chloride 105 98 - 107 mmol/L [facility] Carbon Dioxide 25 22 - 31 mmol/L [facility] Anion Gap 7 5 - 15 mmol/L [facility] Calcium 8.9 8.5 - 10.5 mg/dL [facility] Est Glomerular Filtration Rate 105 >=60 mL/min/1. 73 m?? [facility] Comment: This patient? s estimated glomerular filtration rate (eGFR) is between 105 mL/min/1.73 m2 (patients with less muscle mass per kg body weight) and 122 mL/min/1.73 m2 (patients with more muscle mass per kg body weight) as determined by the CKD-EPI equation. Assessment of eGFR is not appropriate when creatinine concentrations are rapidly changing. For clinical decisions where creatinine clearance will affect therapy, a 24-hour urine creatinine clearance may be advised. Assignment of CKD stage 1 - 5 for patients with an eGFR near the transition point between stages may be based on clinical assessment of muscle mass and symptoms in addition to eGFR. Blood 02/24/2021 4:24 AM EDT 02/24/2021 5:09 AM EDT Narrative Resulting Agency Comment Spec In Lab Pam Padilla AUTISM SPECIALIST CHEMISTRY ORDERABL ES [facility] [place] [address] * Differential, Automated (02/23/2021 3:17 AM EDT) Neutrophil % 76.6 % [facility] Neutrophil Absolute 6.02 1.70 - 6.10 x10(3)/[facility] LABORAT[facility] Lymph % 13.0 % [facility] Lymphocytes Abs 1.0 0.9 - 3.2 x10(3)/[facility] Monocyte % 7.5 % [facility] Monocyte Abs 0.6 0.3 - 0.9 x10(3)/[facility] Eos % 2.2 % [facility] Eosinophils Abs 0.2 0.0 - 0.4 x10(3)/[facility] Basophil % 0.4 % [facility] Baso Absolute 0.0 0.0 - 0.1 x10(3)/[facility] Immature Gran % 0.30 % [facility] Comment: Immature granulocytes(IG's)percentage and absolute count will include metamyelocytes, myelocytes, and promyelocytes. Blood smears from CBCs yielding IG's will be scanned manually for concordance. If this scan disagrees with the automated IG or if promyelocytes are noted, a manual differential will be performed. Immature Gran Absolute 0.02 0.00 - 0.04 x10(3)/[facility] Blood 02/23/2021 3:17 AM EDT 02/23/2021 3:25 AM EDT Narrative Resulting Agency Comment Spec In Lab Pam Padilla APRN HEMATOLOGY ORDERAB LES [facility] [place] [address] * (ABNORMAL) Hemogram (02/23/2021 3:17 AM EDT) White Blood Cell 7.8 4.0 - 9.5 x10(3)/mc L [facility] Red Blood Cell 3.62(L) 4.58 - 5.54 x10(6)/mc L [facility] Hemoglobin 11.1(L) 13.7 - 16.5 gm/dL [facility] Hematocrit 33.9(L) 40.5 - 48.5 % [facility] Mean Cell Volume 93.6(H) 82.9 - 93.1 fL [facility] Mean Cell Hemoglobin 30.7 27.5 - 32.1 pg [facility] Mean Cell Hemoglobin Concentration 32.7 32.0 - 35.7 gm/dL [facility] Platelet 114(L) 145 - 357 x10(3)/mc L [facility] RDW Standard Deviation 47.7(H) 36.0 - 45.0 fL [facility] RDW coefficient of variation 13.9(H) 11.4 - 13.8 % [facility] Mean Platelet Volume 9.2 7.6 - 12.9 fL [facility] NRBC% auto 0.0 % [facility] NRBC Absolute 0.000 0.000 - 0.000 x10(3)/mc L [facility] Blood 02/23/2021 3:17 AM EDT 02/23/2021 3:25 AM EDT Narrative Resulting Agency Comment Spec In Lab Pam Padilla APRN HEMATOLOGY ORDERAB LES [facility] [place] [address] * Phosphorus (02/23/2021 3:17 AM EDT) Phosphorus 3.4 2.5 - 4.5 mg/dL [facility] Blood 02/23/2021 3:17 AM EDT 02/23/2021 3:25 AM EDT Narrative Resulting Agency Comment Spec In Lab Pam Padilla AUTISM SPECIALIST CHEMISTRY ORDERABL ES Performing Organization Address [facility] Co de Phone Number [facility] [place] [address] * Magnesium (02/23/2021 3:17 AM EDT) Magnesium 0.81 0.69 - 1.07 mmol/L [facility] Blood 02/23/2021 3:17 AM EDT 02/23/2021 3:25 AM EDT Narrative Resulting Agency Comment Spec In Lab Pam Padilla APRN CHEMISTRY ORDERABL ES Performing Organization Address [facility] Co de Phone Number [facility] [place] [address] * (ABNORMAL) Basic Metabolic Panel (non-fasting) (02/23/2021 3:17 AM EDT) Glucose 172 65 - 199 mg/dL [facility] Comment:Diabetes: >=200 mg/d L plus symptoms Blood Urea Nitrogen 8(L) 10 - 20 mg/dL [facility] Creatinine 0.62(L) 0.80 - 1.50 mg/dL [facility] Sodium 142 135 - 145 mmol/L [facility] Potassium 3.8 3.5 - 5.0 mmol/L [facility] Comment: Please note: ??Patients with WBC >100,000 may have falsely elevated Potassium levels. ??For accurate Potassium quantification in these patients send serum separator tube (gold top) for subsequent determinations. ??Contact the Clinical Chemistry Laboratory if there are any questions. Chloride 108(H) 98 - 107 mmol/L [facility] Carbon Dioxide 27 22 - 31 mmol/L [facility] Anion Gap 7 5 - 15 mmol/L [facility] Calcium 8.5 8.5 - 10.5 mg/dL [facility] Est Glomerular Filtration Rate 97 >=60 mL/min/1. 73 m?? [facility] Comment: This patient? s estimated glomerular filtration rate (eGFR) is between 97 mL/min/1.73 m2 (patients with less muscle mass per kg body weight) and 112 mL/min/1.73 m2 (patients with more muscle mass per kg body weight) as determined by the CKD-EPI equation. Assessment of eGFR is not appropriate when creatinine concentrations are rapidly changing. For clinical decisions where creatinine clearance will affect therapy, a 24-hour urine creatinine clearance may be advised. Assignment of CKD stage 1 - 5 for patients with an eGFR near the transition point between stages may be based on clinical assessment of muscle mass and symptoms in addition to eGFR. Blood 02/23/2021 3:17 AM EDT 02/23/2021 3:25 AM EDT Narrative Resulting Agency Comment Spec In Lab Pam Padilla APRN CHEMISTRY ORDERABL ES [facility] [place] [address] * Differential, Automated (02/22/2021 4:25 AM EDT) Neutrophil % 76.2 % [facility] Neutrophil Absolute 5.14 1.70 - 6.10 x10(3)/[facility] LABORAT[facility] Lymph % 13.1 % [facility] Lymphocytes Abs 0.9 0.9 - 3.2 x10(3)/[facility] LAB[facility] Monocyte % 7.9 % [facility] Monocyte Abs 0.5 0.3 - 0.9 x10(3)/[facility] Eos % 1.9 % [facility] Eosinophils Abs 0.1 0.0 - 0.4 x10(3)/[facility] Basophil % 0.3 % [facility] Baso Absolute 0.0 0.0 - 0.1 x10(3)/[facility] Immature Gran % 0.60 % [facility] Comment: Immature granulocytes(IG's)percentage and absolute count will include metamyelocytes, myelocytes, and promyelocytes. Blood smears from CBCs yielding IG's will be scanned manually for concordance. If this scan disagrees with the automated IG or if promyelocytes are noted, a manual differential will be performed. Immature Gran Absolute 0.04 0.00 - 0.04 x10(3)/[facility] LAB[facility] Blood 02/22/2021 4:25 AM EDT 02/22/2021 4:31 AM EDT Narrative Resulting Agency Comment Spec In Lab Rocio Smalls MD HEMATOLOGY ORDERABLE S Performing Organization Address City/State/[facility] Co de Phone Number [facility] [place] [address] * (ABNORMAL) Hemogram (02/22/2021 4:25 AM EDT) White Blood Cell 6.7 4.0 - 9.5 x10(3)/mc L [facility] Red Blood Cell 3.74(L) 4.58 - 5.54 x10(6)/mc L [facility] Hemoglobin 11.3(L) 13.7 - 16.5 gm/dL [facility] Hematocrit 34.6(L) 40.5 - 48.5 % [facility] Mean Cell Volume 92.5 82.9 - 93.1 fL [facility] Mean Cell Hemoglobin 30.2 27.5 - 32.1 pg [facility] Mean Cell Hemoglobin Concentration 32.7 32.0 - 35.7 gm/dL [facility] Platelet 119(L) 145 - 357 x10(3)/mc L [facility] RDW Standard Deviation 46.3(H) 36.0 - 45.0 [facility] RDW coefficient of variation 13.7 11.4 - 13.8 % [facility] Mean Platelet Volume 9.2 7.6 - 12.9 [facility] NRBC% auto 0.0 % [facility] NRBC Absolute 0.000 0.000 - 0.000 x10(3)/mc L [facility] Blood 02/22/2021 4:25 AM EDT 02/22/2021 4:31 AM EDT Narrative Resulting Agency Comment Spec In Lab Rocio Smalls MD HEMATOLOGY ORDERABLE S Performing Organization Address City/[facility]/ZIP Co de Phone Number [facility] [place] [address] * Phosphorus (02/22/2021 4:25 AM EDT) Phosphorus 3.4 2.5 - 4.5 mg/dL [facility] Blood 02/22/2021 4:25 AM EDT 02/22/2021 4:31 AM EDT Narrative Resulting Agency Comment Spec In Lab Pam Padilla AUTISM SPECIALIST CHEMISTRY ORDERABL ES Performing Organization Address [facility]/ZIP Co de Phone Number [facility] [place] [address] * Magnesium (02/22/2021 4:25 AM EDT) Magnesium 0.74 0.69 - 1.07 mmol/L [facility] Blood 02/22/2021 4:25 AM EDT 02/22/2021 4:31 AM EDT Narrative Resulting Agency Comment Spec In Lab Pam Padilla AUTISM SPECIALIST CHEMISTRY ORDERABL ES Performing Organization Address City/[facility]/ZIP Co de Phone Number [facility] [place] [address] * (ABNORMAL) Basic Metabolic Panel (non-fasting) (02/22/2021 4:25 AM EDT) Glucose 90 65 - 199 mg/dL [facility] Comment:Diabetes: >=200 mg/d L plus symptoms Blood Urea Nitrogen 6(L) 10 - 20 mg/dL [facility] Creatinine 0.51(L) 0.80 - 1.50 mg/dL [facility] Sodium 140 135 - 145 mmol/L [facility] Potassium 3.7 3.5 - 5.0 mmol/L [facility] Comment: Please note: ??Patients with WBC >100,000 may have falsely elevated Potassium levels. ??For accurate Potassium quantification in these patients send serum separator tube (gold top) for subsequent determinations. ??Contact the Clinical Chemistry Laboratory if there are any questions. Chloride 105 98 - 107 mmol/L [facility] Carbon Dioxide 28 22 - 31 mmol/L [facility] Anion Gap 7 5 - 15 mmol/L [facility] Calcium 8.8 8.5 - 10.5 mg/dL [facility] Est Glomerular Filtration Rate 105 >=60 mL/min/1. 73 m?? [facility] Comment: This patient? s estimated glomerular filtration rate (eGFR) is between 105 mL/min/1.73 m2 (patients with less muscle mass per kg body weight) and 122 mL/min/1.73 m2 (patients with more muscle mass per kg body weight) as determined by the CKD-EPI equation. Assessment of eGFR is not appropriate when creatinine concentrations are rapidly changing. For clinical decisions where creatinine clearance will affect therapy, a 24-hour urine creatinine clearance may be advised. Assignment of CKD stage 1 - 5 for patients with an eGFR near the transition point between stages may be based on clinical assessment of muscle mass and symptoms in addition to eGFR. Blood 02/22/2021 4:25 AM EDT 02/22/2021 4:31 AM EDT Narrative Resulting Agency Comment Spec In Lab Pam Padilla [place] [address] * CT Head wo Contrast (Generic) (02/22/2021 4:02 AM EDT) Anatomical Region Laterality Modality Head Computed Tomogra phy 02/22/2021 4:21 AM EDT Impressions 02/22/2021 4:34 AM EDT 1. ??Stable examination. 2. ??Unchanged small quantity of subarachnoid hemorrhage. 3. ??Unchanged ventricular caliber. 4. ??Unchanged bilateral low-attenuation subdural collection/hygromas. Thank you for letting us participate in the care of this patient. ??If you are a health care provider and have any questions regarding this report, please contact the number below. ??For patients who have questions please contact the health continuum of care manager that requested your imaging first. ? Electronically signed by: Corey Rivers MD, [facility] ([phone]), at 02/22/2021 4:34 AM Narrative 02/22/2021 4:34 AM EDT EXAMINATION: CT HEAD WO CONTRAST (GENERIC) CLINICAL HISTORY: Traumatic brain injury (TBI), stable F/u L hygroma TECHNIQUE: CT head performed without intravenous contrast administration. COMPARISON: Head CT 02/21/2021 FINDINGS: Unchanged ventricular caliber. Unchanged size of a low attenuation left-sided subdural collection measuring 10 mm in thickness (coronal series 5 image 41). Unchanged mass effect with displacement of the left hemisphere and mild [id number]-[id number] midline shift measuring 7 mm at the foramen of Sanders. Unchanged low-attenuation subdural collection along the superior right vertex measuring 7mm in thickness (coronal series 5 image 37). Unchanged trace subarachnoid hemorrhage predominantly within the left perisylvian region. Unchanged trace intraventricular blood products layering dependently. Unchanged blood products adjacent to the interventricular septum. Unchanged anterior lateral right frontal lobe encephalomalacia. Ventura matter white matter differentiation is otherwise well preserved. The orbits are unremarkable status post bilateral lens surgery. There is mild mucosal thickening of the bilateral maxillary sinuses with thickening of the maxillary sinus davis consistent with a component of chronic sinusitis. Multiple sites of dental caries and advanced endodontal disease. The mastoid air cells are clear. There is a large quantity of cerumen within the bilateral external auditory canals. No calvarial fracture. Asymmetric fat stranding within the subcutaneous fat of the left face, unchanged from prior. No extracalvarial hematoma. Procedure Note Corey Rivers MD - 02/22/2021 EXAMINATION: CT HEAD WO CONTRAST (GENERIC) CLINICAL HISTORY: Traumatic brain injury (TBI), stable F/u L hygroma TECHNIQUE: CT head performed without intravenous contrast administration. COMPARISON: Head CT 02/21/2021 FINDINGS: Unchanged ventricular caliber. Unchanged size of a low attenuationleft-sided subdural collection measuring 10 mm in thickness (coronal series 5 image41). Unchanged mass effect with displacement of the left hemisphere and mild honz-no-xffeo midline shift measuring 7 mm at the foramen of Sanders.Unchanged low-attenuation subdural collection along the superior right vertexmeasuring 7mm in thickness (coronal series 5 image 37). Unchanged trace subarachnoid hemorrhage predominantly within the left perisylvian region. Unchanged trace intraventricular blood productslayering dependently. Unchanged blood products adjacent to the interventricularseptum. Unchanged anterior lateral right frontal lobe encephalomalacia. Graymatter white matter differentiation is otherwise well preserved. The orbits are unremarkable status post bilateral lens surgery. There ismild mucosal thickening of the bilateral maxillary sinuses with thickening ofthe maxillary sinus davis consistent with a component of chronic sinusitis.Multiple sites of dental caries and advanced endodontal disease. The mastoid aircells are clear. There is a large quantity of cerumen within the bilateralexternal auditory canals. No calvarial fracture. Asymmetric fat stranding withinthe subcutaneous fat of the left face, unchanged from prior. Noextracalvarial hematoma. IMPRESSION 1. Stable examination. 2. Unchanged small quantity of subarachnoid hemorrhage. 3. Unchanged ventricular caliber. 4. Unchanged bilateral low-attenuation subdural collection/hygromas. Thank you for letting us participate in the care of this patient. If youare a health care provider and have any questions regarding this report,please contact the number below. For patients who have questions please contactthe health continuum of care manager that requested your imaging first. Electronically signed by: Corey Rivers MD, [facility]([phone]), at 02/22/2021 4:34 AM Eduard Luu MD IMG CT ORDERABLES * CT Head wo Contrast (Generic) (02/21/2021 3:51 PM EDT) Anatomical Region Laterality Modality Head Computed Tomogra phy 02/21/2021 4:11 PM EDT Impressions 02/21/2021 4:09 PM EDT 1. Decreased supratentorial and infratentorial subarachnoid hemorrhage. Intraventricular hemorrhages are stable to minimally decreased. 2. 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 5 mm [id number]-mv-[id number] midline shift is stable. Thank you for letting us participate in the care of this patient. ??If you are a health care provider and have any questions regarding this report, please contact the number below. ??For patients who have questions please contact the health continuum of care manager that requested your imaging first. ? Electronically signed by: Silvia Ling MD, [facility] ([phone]), at 02/21/2021 4:09 PM Narrative 02/21/2021 4:09 PM EDT EXAMINATION: CT HEAD WO CONTRAST (GENERIC) CLINICAL HISTORY: Seizure, abnormal neuro exam TECHNIQUE: CT head performed without intravenous contrast administration. COMPARISON: CT brain February 18, 2021. FINDINGS: Stable right frontotemporal partially cystic encephalomalacia. Stable hemorrhage at the medial left sylvian fissure. Subarachnoid hemorrhage posterior left sylvian fissure is diminished. Small amount of hemorrhage within the anteromedial left frontal horn stable. Hemorrhage adjacent to the right foramen of Sanders stable to minimally decreased. Decreased subarachnoid hemorrhage in the right greater than left posterior fossa and along the right tentorium. Increased thickness of left frontal convexity subdural hygroma, measuring up to 1.4 cm today compared to 1 cm previously. Thin higher attenuation component along the left inferolateral frontal lobe is decreased in thickness today. There is increased mass effect on the right frontal and parietal lobes, with sulcal effacement. Prominent right convexity extra-axial spaces, stable. There is stable 7 mm right to left midline shift. Decreased left facial soft tissue swelling. Procedure Note Silvia Ling MD - 02/21/2021 EXAMINATION: CT HEAD WO CONTRAST (GENERIC) CLINICAL HISTORY: Seizure, abnormal neuro exam TECHNIQUE: CT head performed without intravenous contrast administration. COMPARISON: CT brain February 18, 2021. FINDINGS: Stable right frontotemporal partially cystic encephalomalacia. Stablehemorrhage at the medial left sylvian fissure. Subarachnoid hemorrhage posteriorleft sylvian fissure is diminished. Small amount of hemorrhage within the anteromedial left frontal horn stable. Hemorrhage adjacent to the rightforamen of Sanders stable to minimally decreased. Decreased subarachnoid hemorrhagein the right greater than left posterior fossa and along the righttentorium. Increased thickness of left frontal convexity subdural hygroma, measuringup to 1.4 cm today compared to 1 cm previously. Thin higher attenuationcomponent along the left inferolateral frontal lobe is decreased in thickness today.There is increased mass effect on the right frontal and parietal lobes, withsulcal effacement. Prominent right convexity extra-axial spaces, stable. Thereis stable 7 mm right to left midline shift. Decreased left facial softtissue swelling. IMPRESSION 1. Decreased supratentorial and infratentorial subarachnoid hemorrhage. Intraventricular hemorrhages are stable to minimally decreased. 2. Increased size of left convexity subdural hygroma, with increased masseffect with sulcal effacement. 5 mm rhmh-bx-yoxst midline shift is stable. Thank you for letting us participate in the care of this patient. If youare a health care provider and have any questions regarding this report,please contact the number below. For patients who have questions please contactthe health continuum of care manager that requested your imaging first. Nj Kimball AUTISM SPECIALIST IMG CT ORDERABLES * POCT Glucose (02/21/2021 2:38 PM EDT) [facility] Glucose, POC 136 65 - 199 mg/dL [facility] Comment: Supplemental ranges: <140 mg/dL before meals <180 mg/dL all other times of the day Blood 02/21/2021 2:38 PM EDT 02/21/2021 2:38 PM EDT Eduard Luu MD POINT OF CARE TEST O RDERABLES Performing Organization Address City/State/[facility] Co de Phone Number [facility] [place] [address] * Differential, Automated (02/21/2021 1:15 AM EDT) [facility] Neutrophil % 72.3 % [facility] Neutrophil Absolute 5.26 1.70 - 6.10 x10(3)/[facility] LABORATORY Lymph % 15.1 % [facility] Lymphocytes Abs 1.1 0.9 - 3.2 x10(3)/[facility] LABORATORY Monocyte % 9.3 % [facility] Monocyte Abs 0.7 0.3 - 0.9 x10(3)/[facility] LABORATORY Eos % 2.5 % [facility] Eosinophils Abs 0.2 0.0 - 0.4 x10(3)/[facility] LABORATORY Basophil % 0.3 % [facility] Baso Absolute 0.0 0.0 - 0.1 x10(3)/[facility] LABORATORY Immature Gran % 0.50 % [facility] Comment: Immature granulocytes(IG's)percentage and absolute count will include metamyelocytes, myelocytes, and promyelocytes. Blood smears from CBCs yielding IG's will be scanned manually for concordance. If this scan disagrees with the automated IG or if promyelocytes are noted, a manual differential will be performed. Immature Gran Absolute 0.04 0.00 - 0.04 x10(3)/[facility] LABORATORY Blood 02/21/2021 1:15 AM EDT 02/21/2021 1:30 AM EDT Narrative Resulting Agency Comment Spec In Lab Charleen Colby MD HEMATOLOGY ORDERAB LES [facility] [place] [address] * (ABNORMAL) Hemogram (02/21/2021 1:15 AM EDT) White Blood Cell 7.3 4.0 - 9.5 x10(3)/[facility] LABORATORY Red Blood Cell 3.93(L) 4.58 - 5.54 x10(6)/mc L [facility] Hemoglobin 11.9(L) 13.7 - 16.5 gm/dL [facility] Hematocrit 36.7(L) 40.5 - 48.5 % [facility] Mean Cell Volume 93.4(H) 82.9 - 93.1 [facility] Mean Cell Hemoglobin 30.3 27.5 - 32.1 pg [facility] Mean Cell Hemoglobin Concentration 32.4 32.0 - 35.7 gm/dL [facility] Platelet 103(L) 145 - 357 x10(3)/[facility] LABORATORY RDW Standard Deviation 46.5(H) 36.0 - 45.0 [facility] RDW coefficient of variation 13.6 11.4 - 13.8 % [facility] Mean Platelet Volume 9.2 7.6 - 12.9 fL [facility] NRBC% auto 0.0 % [facility] NRBC Absolute 0.000 0.000 - 0.000 x10(3)/mc L [facility] Blood 02/21/2021 1:15 AM EDT 02/21/2021 1:30 AM EDT Narrative Resulting Agency Comment Spec In Lab Charleen Colby MD HEMATOLOGY ORDERAB LES [facility] [place] [address] * (ABNORMAL) Basic Metabolic Panel (non-fasting) (02/21/2021 1:15 AM EDT) Glucose 100 65 - 199 mg/dL [facility] Comment:Diabetes: >=200 mg/d L plus symptoms Blood Urea Nitrogen 7(L) 10 - 20 mg/dL [facility] Creatinine 0.73(L) 0.80 - 1.50 mg/dL [facility] Sodium 141 135 - 145 mmol/L [facility] Potassium 3.6 3.5 - 5.0 mmol/L [facility] Comment: Please note: ??Patients with WBC >100,000 may have falsely elevated Potassium levels. ??For accurate Potassium quantification in these patients send serum separator tube (gold top) for subsequent determinations. ??Contact the Clinical Chemistry Laboratory if there are any questions. Chloride 106 98 - 107 mmol/L [facility] Carbon Dioxide 27 22 - 31 mmol/L [facility] Anion Gap 8 5 - 15 mmol/L [facility] Calcium 8.4(L) 8.5 - 10.5 mg/dL [facility] Est Glomerular Filtration Rate 91 >=60 mL/min/1. 73 m?? [facility] Comment: This patient? s estimated glomerular filtration rate (eGFR) is between 91 mL/min/1.73 m2 (patients with less muscle mass per kg body weight) and 105 mL/min/1.73 m2 (patients with more muscle mass per kg body weight) as determined by the CKD-EPI equation. Assessment of eGFR is not appropriate when creatinine concentrations are rapidly changing. For clinical decisions where creatinine clearance will affect therapy, a 24-hour urine creatinine clearance may be advised. Assignment of CKD stage 1 - 5 for patients with an eGFR near the transition point between stages may be based on clinical assessment of muscle mass and symptoms in addition to eGFR. Blood 02/21/2021 1:15 AM EDT 02/21/2021 1:30 AM EDT Narrative Resulting Agency Comment Spec In Lab Eduard Luu MD CHEMISTRY ORDERABLES [facility] [place] [address] * (ABNORMAL) Differential, Automated (02/20/2021 11:55 AM EDT) Neutrophil % 82.3 % [facility] Neutrophil Absolute 7.60(H) 1.70 - 6.10 x10(3)/mc L [facility] Lymph % 9.6 % [facility] Lymphocytes Abs 0.9 0.9 - 3.2 x10(3)/mc L [facility] Monocyte % 6.1 % [facility] Monocyte Abs 0.6 0.3 - 0.9 x10(3)/mc L [facility] Eos % 1.3 % [facility] Eosinophils Abs 0.1 0.0 - 0.4 x10(3)/mc L [facility] Basophil % 0.3 % [facility] Baso Absolute 0.0 0.0 - 0.1 x10(3)/mc L [facility] Immature Gran % 0.40 % [facility] Comment: Immature granulocytes(IG's)percentage and absolute count will include metamyelocytes, myelocytes, and promyelocytes. Blood smears from CBCs yielding IG's will be scanned manually for concordance. If this scan disagrees with the automated IG or if promyelocytes are noted, a manual differential will be performed. Immature Gran Absolute 0.04 0.00 - 0.04 x10(3)/mc L [facility] Blood 02/20/2021 11:5 5 AM EDT 02/20/2021 12:05 PM EDT Narrative Resulting Agency Comment Spec In Lab Nj Kimball AUTISM SPECIALIST HEMATOLOGY ORDERABLE S [facility] [place] [address] * (ABNORMAL) Hemogram (02/20/2021 11:55 AM EDT) White Blood Cell 9.2 4.0 - 9.5 x10(3)/mc L [facility] Red Blood Cell 4.00(L) 4.58 - 5.54 x10(6)/mc L [facility] Hemoglobin 12.5(L) 13.7 - 16.5 gm/dL [facility] Hematocrit 37.0(L) 40.5 - 48.5 % [facility] Mean Cell Volume 92.5 82.9 - 93.1 [facility] Mean Cell Hemoglobin 31.3 27.5 - 32.1 pg [facility] Mean Cell Hemoglobin Concentration 33.8 32.0 - 35.7 gm/dL [facility] Platelet 132(L) 145 - 357 x10(3)/mc L [facility] RDW Standard Deviation 46.2(H) 36.0 - 45.0 [facility] RDW coefficient of variation 13.6 11.4 - 13.8 % [facility] Mean Platelet Volume 9.1 7.6 - 12.9 [facility] NRBC% auto 0.0 % [facility] NRBC Absolute 0.000 0.000 - 0.000 x10(3)/mc L [facility] Blood 02/20/2021 11:5 5 AM EDT 02/20/2021 12:05 PM EDT Narrative Resulting Agency Comment Spec In Lab Nj Kimball AUTISM SPECIALIST HEMATOLOGY ORDERABLE S [facility] [place] [address] * (ABNORMAL) Basic Metabolic Panel (non-fasting) (02/20/2021 11:55 AM EDT) Glucose 116 65 - 199 mg/dL [facility] Comment:Diabetes: >=200 mg/d L plus symptoms Blood Urea Nitrogen 5(L) 10 - 20 mg/dL [facility] Creatinine 0.58(L) 0.80 - 1.50 mg/dL [facility] Sodium 141 135 - 145 mmol/L [facility] Potassium 3.7 3.5 - 5.0 mmol/L [facility] Comment: Please note: ??Patients with WBC >100,000 may have falsely elevated Potassium levels. ??For accurate Potassium quantification in these patients send serum separator tube (gold top) for subsequent determinations. ??Contact the Clinical Chemistry Laboratory if there are any questions. Chloride 106 98 - 107 mmol/L [facility] Carbon Dioxide 28 22 - 31 mmol/L [facility] Anion Gap 7 5 - 15 mmol/L [facility] Calcium 8.4(L) 8.5 - 10.5 mg/dL [facility] Est Glomerular Filtration Rate 100 >=60 mL/min/1. 73 m?? [facility] Comment: This patient? s estimated glomerular filtration rate (eGFR) is between 100 mL/min/1.73 m2 (patients with less muscle mass per kg body weight) and 116 mL/min/1.73 m2 (patients with more muscle mass per kg body weight) as determined by the CKD-EPI equation. Assessment of eGFR is not appropriate when creatinine concentrations are rapidly changing. For clinical decisions where creatinine clearance will affect therapy, a 24-hour urine creatinine clearance may be advised. Assignment of CKD stage 1 - 5 for patients with an eGFR near the transition point between stages may be based on clinical assessment of muscle mass and symptoms in addition to eGFR. Blood 02/20/2021 11:5 5 AM EDT 02/20/2021 12:05 PM EDT Narrative Resulting Agency Comment Spec In Lab Nj Kimball AUTISM SPECIALIST CHEMISTRY ORDERABLES Performing Organization Address City/[facility] Co de Phone Number [facility] [place] [address] * Phosphorus (02/20/2021 11:55 AM EDT) Phosphorus 2.9 2.5 - 4.5 mg/dL [facility] Blood 02/20/2021 11:5 5 AM EDT 02/20/2021 12:05 PM EDT Narrative Resulting Agency Comment Spec In Lab Nj Kimball AUTISM SPECIALIST CHEMISTRY ORDERABLES Performing Organization Address [facility] Co de Phone Number [facility] [place] [address] * Magnesium (02/20/2021 11:55 AM EDT) Magnesium 0.74 0.69 - 1.07 mmol/L [facility] Blood 02/20/2021 11:5 5 AM EDT 02/20/2021 12:05 PM EDT Narrative Resulting Agency Comment Spec In Lab Nj Kimball AUTISM SPECIALIST CHEMISTRY ORDERABLES Performing Organization Address [facility] Co de Phone Number [facility] [place] [address] * Duplex Study for DVT, Bilat legs (02/20/2021 11:46 AM EDT) VB Text Report Department: Vascular Surgery Lab Patient: [id number] (NARCISA EDUARDO) CPT: 05842 ICD10: R60.0 Referring Physician: NJ KIMBALL ?? Phone: Indications: ??bilateral LE edema ICD10 Diagnosis Code: R60.0 Findings: RIGHT: Patent common femoral vein and popliteal vein with spontaneous, respirophasic Doppler waveforms that respond normally to augmentation maneuvers. The common femoral vein, saphenofemoral junction, femoral vein through the thigh and popliteal vein are fully compressible. Patent posterior tibial and peroneal veins with no evidence of thrombus. LEFT: Patent common femoral vein and popliteal vein with spontaneous, respirophasic Doppler waveforms that respond normally to augmentation maneuvers. The common femoral vein, saphenofemoral junction, femoral vein through the thigh and popliteal vein are fully compressible. Patent posterior tibial and peroneal veins with no evidence of thrombus. Interpretation: RIGHT: ??No evidence of lower extremity deep venous thrombosis. LEFT: ??No evidence of lower extremity deep venous thrombosis. Comparison: ?? No previous study in our vascular lab database for comparison. Electronically Signed by: CHARLEEN HOFFMAN on 2021-02-21 01:05:27 PM [facility] VB Text Report End of Report [facility] 02/20/2021 11:4 6 AM EDT Nj Kimball AUTISM SPECIALIST VASCULAR ORDERABLES [facility] * XR Fluoro Barium Swallow (Modified/Video Swallow Pharynx) (02/20/2021 11:31 AM EDT) Anatomical Region Laterality Modality N/A Radio Fluoroscop y Impressions 02/20/2021 1:19 PM EDT 1. ??Delayed oral phase of swallowing with significant tongue pumping with all consistencies. 2. ??Flash penetration occurred with thin liquids. No aspiration with any consistency. 3. ??Swallow trigger occurred at the level of the piriform sinuses with thin liquids. Please see speech and language pathology note for further discussion. I have personally reviewed the image(s) and the resident's interpretation and agree with the findings, Arnel Story MD at 02/20/2021 1:19 PM Thank you for letting us participate in the care of this patient. ??If you are a health care provider and have any questions regarding this report, please contact the number below. ??For patients who have questions please contact the health continuum of care manager that requested your imaging first. ? Electronically signed by: Arnel Story MD, [facility] ([phone]), at 02/20/2021 1:19 PM Narrative 02/20/2021 1:19 PM EDT EXAMINATION: XR FLUORO BARIUM SWALLOW (MODIFIED/VIDEO SWALLOW PHARYNX) CLINICAL HISTORY: dysphagia TECHNIQUE: The examination was performed in conjunction with speech pathology. ??Varying consistencies of barium were administered under lateral fluoroscopic observation. Fluoro time: 2.33 minutes COMPARISON: None FINDINGS: Significant tongue pumping was observed with all consistencies studied. The oral phase of swallowing is delayed. During was triggering occurring at level piriform sinuses with thin liquids. There is normal elevation of the hyoid and larynx as well as normal epiglottic inversion with swallowing. Flash penetration of the airway occurred with thin liquids. No aspiration occurred with any consistency. No residual pooling within the valleculae or piriform sinuses. Procedure Note Arnel Story MD - 02/20/2021 EXAMINATION: XR FLUORO BARIUM SWALLOW (MODIFIED/VIDEO SWALLOW PHARYNX) CLINICAL HISTORY: dysphagia TECHNIQUE: The examination was performed in conjunction with speech pathology.Varying consistencies of barium were administered under lateral fluoroscopic observation. Fluoro time: 2.33 minutes COMPARISON: None FINDINGS: Significant tongue pumping was observed with all consistencies studied.The oral phase of swallowing is delayed. During was triggering occurring at level piriform sinuses with thin liquids. There is normal elevation of the hyoid and larynx as well as normalepiglottic inversion with swallowing. Flash penetration of the airway occurred with thin liquids. Noaspiration occurred with any consistency. No residual pooling within the valleculae or piriform sinuses. IMPRESSION 1. Delayed oral phase of swallowing with significant tongue pumping withall consistencies. 2. Flash penetration occurred with thin liquids. No aspiration with any consistency. 3. Swallow trigger occurred at the level of the piriform sinuses withthin liquids. Please see speech and language pathology note for further discussion. I have personally reviewed the image(s) and the resident's interpretationand agree with the findings, Arnel Story MD at 02/20/2021 1:19 PM Thank you for letting us participate in the care of this patient. If youare a health care provider and have any questions regarding this report,please contact the number below. For patients who have questions please contactthe health continuum of care manager that requested your imaging first. Electronically signed by: Arnel Story MD, [facility]([phone]), at 02/20/2021 1:19 PM Feliciano Estrada MD IMG FLUORO ORDERABL ES * ECHO COMPLETE (02/19/2021 4:17 PM EDT) EF 64 HEARTLAB SYSTEM Anatomical Region Laterality Modality Other 02/19/2021 Narrative 02/19/2021 4:32 PM EDT Procedure: ?Transthoracic Echocardiogram Patient: ?JAYCE NARCISA ?(Age): 1945(75y) Med Rec#: ? [id number] ?Sex: ?M ? [place] [facility] [place]t / Wt: ??177(cm)/62(kg) Pt. Loc: ?Adult Floor ? BSA: ?1.77 Study Date: ?? 02/19/2021 ?Pt. Type: Inpatient Tape: ? Referring: DOMINIQUE Reading: Naty Granados ([id number]) Plastic Printer: Kylie Castanon [facility], [facility] Diagnosis: *Syncope and collapse (R55) Rhythm: ? Sinus BP: ? 126/72 HR: ? 55 SUMMARY: 1. The left ventricular chamber size is [...] valve stenosis. The mean trans-valvular gradient across ??the aortic valve is 10 mmHg. The calculated aortic valve area is 1.5 cm2. ??There is no evidence of aortic regurgitation. 4. See remainder of report for additional findings. There is no prior study. Findings ? : Study Quality: ? Adequate Left Ventricle: ? The left ventricular chamber size is normal. ?Left ventricular wall thickness is normal. ?There is no evidence of LVOT obstruction. ?No ventricular septal defect is visualized. ?There is normal global left ventricular systolic function. ?The quantitative left ventricular ejection fraction by biplane Damico's method is 64%. ?There are no left ventricular segmental wall motion abnormalities. ?Doppler assessment is consistent with normal left sided filling pressure. Left Atrium: ? The left atrium is normal in size. 32 ml/m2. ?No atrial septal defect is visualized. Right Ventricle: ? Right ventricular chamber size, wall thickness, and systolic function are within normal limits. ?The estimated pulmonary artery systolic pressure is 20 mmHg. ?The estimated right atrial pressure is 3 mmHg. Right Atrium: ? The right atrium appears normal. Aortic Valve: ? The aortic valve is not well visualized. ?The aortic valve is probably tricuspid. ?All leaflets of the aortic valve are thickened. ?Moderate aortic leaflet calcification is visualized. ?Systolic excursion of the aortic valve cusps is reduced. ?The peak instantaneous trans-valvular gradient across ??the aortic valve is 22 mmHg. ?The mean trans-valvular gradient across ??the aortic valve is 10 mmHg. ?The calculated aortic valve area is 1.5 cm2. ?There is mild aortic valve stenosis. ?There is no evidence of aortic regurgitation. Mitral Valve: ? The mitral valve appears normal in structure and function. ?There is no evidence of mitral valve leaflet prolapse. ?There is trace mitral regurgitation present. Tricuspid Valve: ? The tricuspid valve appears normal in structure and function. ?There is trace tricuspid regurgitation present. Pulmonic Valve: ? The pulmonic valve appears normal in structure and function. Pericardium: ? The pericardium appears normal and there is no evidence of a pericardial effusion. Aorta: ? There is mild dilatation of the aortic root. 3.7 cm ?The ascending aorta was not well visualized. ?There is no evidence of coarctation of the aorta. Pulmonary Artery: ? The main pulmonary artery appears normal. Venous: ? The inferior vena cava appears normal in size. ?There is a greater than 50% respiratory change in the inferior vena cava dimension. Misc: ? See remainder of report for additional findings. ?Two-dimensional echo, spectral Doppler and color Doppler performed. Chambers 2D ?Value ?Units (Range) ? IVSd (2D) ? 0.86 ? cm ? LVPWd (2D) ?0.88 ? cm ? IVS:LVPW ratio (2D) 0.97 ? ratio ? RWT (2D) ?0.38 ? ratio ? RWT PW (2D) ? 0.39 ? ratio ? LVIDd (2D) ?4.56 ? cm ? LVIDs (2D) ?3.47 ? cm ? LVIDd (2D) index ?2.58 ? cm/m2 ? LVIDs (2D) index ?1.96 ? cm/m2 ? LV FS (2D) ?23.91 ?% ? EF Teichholz (2D) ?? 47.76 ?% ? Ao root diameter (2D3.7 ?cm (2.1 - 3.6) ? Volumes/Mass ?Value ?Units (Range) ? LA Area 4 CH ?19 ? cm2 (<21) ? LA ESV BP (A/L) inde33.82 ?ml/m2 ? RA AREA 4CH ? 13 ? cm2 ? LA ESV BP (MOD) inde32 ? ml/m2 ? LV ESV SP 4CH (MOD) 32.08 ?ml ? LV ESV SP 2CH (MOD) 40.98 ?ml ? LV EDV BP ? 101.8 ?ml ? LV ESV BP ? 36.99 ?ml ? LV EDV BP index ? 57.52 ?ml/m2 ? LV ESV BP index ? 20.9 ? ml/m2 ? BP EF (MOD) ? 63.66 ?% ? LV mass (2D) ?130 ?g ? LV mass (2D) index ??73.45 ?g/m2 ? Diastolic/Systolic Function ?Value ?Units (Range) ? MV E-wave Vmax ?0.71 ? m/sec ? MV deceleration ksik961.57 ? msec ? MV A-wave Vmax ?0.9 ?m/sec ? MV E:A ratio ?0.78 ? ratio ? LV septal e' Vmax ?? 0.07 ? m/sec ? LV lateral e' Vmax ??0.09 ? m/sec ? LV average e' Vmax ??0.08 ? m/sec ? LV E:e' septal ratio10.11 ?ratio ? LV E:e' lateral rati7.86 ? ratio ? LV average E:e' rati8.85 ? ratio ? Aortic Valve ?Value ?Units (Range) ? AV Vmax ? 2.35 ? m/sec ? AV VTI ?50.93 ?cm ? AV peak gradient ?22 ? mmHg ? AV mean gradient ?10 ? mmHg ? LVOT diameter ? 2.07 ? cm ? LVOT Vmax ? 1.03 ? m/sec ? LVOT VTI ?26.02 ?cm ? LVOT peak gradient ??4.21 ? mmHg ? LVOT mean gradient ??1.76 ? mmHg ? DOI (VTI) ? 0.51 ? ratio ? DOI (Vmax) ?0.44 ? ratio ? SV LVOT ? 87.43 ?ml ? SV LVOT Index ? 49 ? ml/m2 ? CO LVOT ? 4.81 ? l/min ? Cardiac index ? 2.72 ? l/min/m2 ? PATRICK (continuity Vmax1.5 ?cm2 ? PATRICK (continuity Vmax0.83 ? cm2/m2 ? PATRICK (continuity VTI)1.72 ? cm ? PATRICK (continuity VTI)0.97 ? cm2/m2 ? Tricuspid Valve ?Value ?Units (Range) ? TR Vmax ? 2.06 ? m/sec ? TR peak gradient ?17 ? mmHg ? RAP ? 3 ?mmHg ? RVSP ?20 ? mmHg ? Wall Motion: Segment Name ?Rest ? Base-Anteroseptal ?? Normal ? Base-Anterior ? Normal ? Base-Anterolateral ??Normal ? Base-Posterolateral Normal ? Base-Inferior ? Normal ? Base-Inferoseptal ?? Normal ? Mid-Anteroseptal ?Normal ? Mid-Anterior ?Normal ? Mid-Anterolateral ?? Normal ? Mid-Posterolateral ??Normal ? Mid-Inferior ?Normal ? Mid-Inferoseptal ?Normal ? [place]-Septal ? Normal ? [place]-Anterior ? Normal ? [place]-Lateral ?Normal ? [place]-Inferior ? Normal ? [place]-Tip ?Normal ? This report has been electronically signed by: Naty Granados MD ? 02/19/2021 16:32:03 Images reviewed and interpretation verified [facility]ound [facility] Procedure Note Naty Granados MD - 02/19/2021 Procedure: Transthoracic Echocardiogram Patient: JAYCE SOARES(Age): 1945(75y) Med Rec#: [id number] Sex: M [place] [facility] [place] / Wt: 177(cm)/62(kg) Pt. Loc: Adult Floor BSA: 1.77 Study Date: 02/19/2021 Pt. Type: Inpatient Tape: Referring: DOMINIQUE Reading: Naty Granados ([id number]) Plastic Printer: Kylie Castanon RDCS, SUSAN Diagnosis: *Syncope and collapse (R55) Rhythm: Sinus BP: 126/72 HR: 55 SUMMARY: 1. The left ventricular chamber size is [...] additional findings. There is no prior study. Findings : Study Quality: Adequate Left Ventricle: The left ventricular chamber size is normal. Left ventricular wall thickness is normal. There is no evidence of LVOT obstruction. No ventricular septal defect is visualized. There is normal global left ventricular systolic function. The quantitative left ventricular ejection fraction by biplane Damico's method is 64%. There are no left ventricular segmental wall motion abnormalities. Doppler assessment is consistent with normal left sided filling pressure. Left Atrium: The left atrium is normal in size. 32 ml/m2. No atrial septal defect is visualized. Right Ventricle: Right ventricular chamber size, wall thickness, and systolic function are within normal limits. The estimated pulmonary artery systolic pressure is 20 mmHg. The estimated right atrial pressure is 3 mmHg. Right Atrium: The right atrium appears normal. Aortic Valve: The aortic valve is not well visualized. The aortic valve is probably tricuspid. All leaflets of the aortic valve are thickened. Moderate aortic leaflet calcification is visualized. Systolic excursion of the aortic valve cusps is reduced. The peak instantaneous trans-valvular gradient across the aortic valve is 22 mmHg. The mean trans-valvular gradient across the aortic valve is 10 mmHg. The calculated aortic valve area is 1.5 cm2. There is mild aortic valve stenosis. There is no evidence of aortic regurgitation. Mitral Valve: The mitral valve appears normal in structure and function. There is no evidence of mitral valve leaflet prolapse. There is trace mitral regurgitation present. Tricuspid Valve: The tricuspid valve appears normal in structure and function. There is trace tricuspid regurgitation present. Pulmonic Valve: The pulmonic valve appears normal in structure and function. Pericardium: The pericardium appears normal and there is no evidence of a pericardial effusion. Aorta: There is mild dilatation of the aortic root. 3.7 cm The ascending aorta was not well visualized. There is no evidence of coarctation of the aorta. Pulmonary Artery: The main pulmonary artery appears normal. Venous: The inferior vena cava appears normal in size. There is a greater than 50% respiratory change in the inferior vena cava dimension. Misc: See remainder of report for additional findings. Two-dimensional echo, spectral Doppler and color Doppler performed. Chambers 2D Value Units (Range) IVSd (2D) 0.86 cm LVPWd (2D) 0.88 cm IVS:LVPW ratio (2D) 0.97 ratio RWT (2D) 0.38 ratio RWT PW (2D) 0.39 ratio LVIDd (2D) 4.56 cm LVIDs (2D) 3.47 cm LVIDd (2D) index 2.58 cm/m2 LVIDs (2D) index 1.96 cm/m2 LV FS (2D) 23.91 % EF Teichholz (2D) 47.76 % Ao root diameter (2D3.7 cm (2.1 - 3.6) Volumes/Mass Value Units (Range) LA Area 4 CH 19 cm2 (<21) LA ESV BP (A/L) inde33.82 ml/m2 RA AREA 4CH 13 cm2 LA ESV BP (MOD) inde32 ml/m2 LV ESV SP 4CH (MOD) 32.08 ml LV ESV SP 2CH (MOD) 40.98 ml LV EDV BP 101.8 ml LV ESV BP 36.99 ml LV EDV BP index 57.52 ml/m2 LV ESV BP index 20.9 ml/m2 BP EF (MOD) 63.66 % LV mass (2D) 130 g LV mass (2D) index 73.45 g/m2 Diastolic/Systolic Function Value Units (Range) MV E-wave Vmax 0.71 m/sec MV deceleration zwkk588.57 msec MV A-wave Vmax 0.9 m/sec MV E:A ratio 0.78 ratio LV septal e' Vmax 0.07 m/sec LV lateral e' Vmax 0.09 m/sec LV average e' Vmax 0.08 m/sec LV E:e' septal ratio10.11 ratio LV E:e' lateral rati7.86 ratio LV average E:e' rati8.85 ratio Aortic Valve Value Units (Range) AV Vmax 2.35 m/sec AV VTI 50.93 cm AV peak gradient 22 mmHg AV mean gradient 10 mmHg LVOT diameter 2.07 cm LVOT Vmax 1.03 m/sec LVOT VTI 26.02 cm LVOT peak gradient 4.21 mmHg LVOT mean gradient 1.76 mmHg DOI (VTI) 0.51 ratio DOI (Vmax) 0.44 ratio SV LVOT 87.43 ml SV LVOT Index 49 ml/m2 CO LVOT 4.81 l/min Cardiac index 2.72 l/min/m2 PATRICK (continuity Vmax1.5 cm2 PATRICK (continuity Vmax0.83 cm2/m2 PATRICK (continuity VTI)1.72 cm PATRICK (continuity VTI)0.97 cm2/m2 Tricuspid Valve Value Units (Range) TR Vmax 2.06 m/sec TR peak gradient 17 mmHg RAP 3 mmHg RVSP 20 mmHg Wall Motion: Segment Name Rest Base-Anteroseptal Normal Base-Anterior Normal Base-Anterolateral Normal Base-Posterolateral Normal Base-Inferior Normal Base-Inferoseptal Normal Mid-Anteroseptal Normal Mid-Anterior Normal Mid-Anterolateral Normal Mid-Posterolateral Normal Mid-Inferior Normal Mid-Inferoseptal Normal [place]-Septal Normal [place]-Anterior Normal [place]-Lateral Normal [place]-Inferior Normal [place]-Tip Normal This report has been electronically signed by: Naty Granados MD 02/19/2021 16:32:03 Images reviewed and interpretation verified [facility]ound [facility] Nj Kimball AUTISM SPECIALIST ECHO ORDERABLES * Carotid Duplex, Bilateral (02/19/2021 8:50 AM EDT) VB Text Report Department: Vascular Surgery Lab Patient: [id number] (NARCISA EDUARDO) CPT: 98896 ICD10: R55 Referring Physician: NJ KIMBALL ?? Phone: Indications: syncope, ? carotid artery stenosis ICD10 Diagnosis Code: R55 Findings: ICA Proximal, Right ? PSV (cm/s): 55 ? EDV (cm/s): 14 ? ICA/CCA: 1.4 ? Plaque Structure: Echogenic ? Plaque Surface: Irregular ? %Stenosis: 16-49% ICA Distal, Right ? PSV (cm/s): 49 ? EDV (cm/s): 16 ? ICA/CCA: 1.2 CCA Distal, Right ? PSV (cm/s): 40 ? EDV (cm/s): 6 ? %Stenosis: Minimal CCA Proximal, Right ? PSV (cm/s): 44 ? EDV (cm/s): 6 External Carotid Artery, Right ? PSV (cm/s): 77 ? EDV (cm/s): 9 ? %Stenosis: <50% Vertebral, Right ? PSV (cm/s): 24 ? EDV (cm/s): 7 ? Direction of Flow: Antegrade ICA Proximal, Left ? PSV (cm/s): 56 ? EDV (cm/s): 16 ? ICA/CCA: 0.8 ? Plaque Structure: Echogenic ? Plaque Surface: Irregular ? %Stenosis: <15% ICA Distal, Left ? PSV (cm/s): 61 ? EDV (cm/s): 18 ? ICA/CCA: 0.9 CCA Distal, Left ? PSV (cm/s): 66 ? EDV (cm/s): 11 ? %Stenosis: Minimal CCA Proximal, Left ? PSV (cm/s): 74 ? EDV (cm/s): 14 External Carotid Artery, Left ? PSV (cm/s): 50 ? EDV (cm/s): 8 ? %Stenosis: <50% Vertebral, Left ? PSV (cm/s): 39 ? EDV (cm/s): 8 ? Direction of Flow: Antegrade Interpretation: RIGHT: A thin layer of circumferential plaque [...] normal antegrade Doppler waveforms and velocities bilaterally. Comparison: ??No previous study in our vascular lab database for comparison. Electronically Signed by: NATY OLIVER M.D. on 2021-02-19 11:12:05 AM VASCU[facility] VB Text Report End of Report [facility] 02/19/2021 8:50 AM EDT Nj Kimball APRN VASCULAR ORDERABLES [facility]AS[facility] * (ABNORMAL) Differential, Automated (02/19/2021 12:40 AM EDT) Neutrophil % 81.8 % [facility] Neutrophil Absolute 9.35(H) 1.70 - 6.10 x10(3)/mc L [facility] Lymph % 9.7 % [facility] Lymphocytes Abs 1.1 0.9 - 3.2 x10(3)/mc L [facility] Monocyte % 6.6 % [facility] Monocyte Abs 0.8 0.3 - 0.9 x10(3)/mc L [facility] Eos % 1.0 % [facility] Eosinophils Abs 0.1 0.0 - 0.4 x10(3)/ L [facility] Basophil % 0.3 % [facility] Baso Absolute 0.0 0.0 - 0.1 x10(3)/[facility] Immature Gran % 0.60 % [facility] Comment: Immature granulocytes(IG's)percentage and absolute count will include metamyelocytes, myelocytes, and promyelocytes. Blood smears from CBCs yielding IG's will be scanned manually for concordance. If this scan disagrees with the automated IG or if promyelocytes are noted, a manual differential will be performed. Immature Gran Absolute 0.07(H) 0.00 - 0.04 x10(3)/[facility] Blood 02/19/2021 12:4 0 AM EDT 02/19/2021 12:50 AM EDT Narrative Resulting Agency Comment Spec In Lab Tayler Lopes MD HEMATOLOGY ORDERABLE S Performing Organization Address City/State/[facility] Co de Phone Number [facility] [place] [phone] * (ABNORMAL) Hemogram (02/19/2021 12:40 AM EDT) White Blood Cell 11.4(H) 4.0 - 9.5 x10(3)/[facility] LAB[facility] Red Blood Cell 3.95(L) 4.58 - 5.54 x10(6)/[facility] Hemoglobin 12.1(L) 13.7 - 16.5 gm/dL [facility] Hematocrit 36.7(L) 40.5 - 48.5 % [facility] Mean Cell Volume 92.9 82.9 - 93.1 fL [facility] Mean Cell Hemoglobin 30.6 27.5 - 32.1 pg [facility] Mean Cell Hemoglobin Concentration 33.0 32.0 - 35.7 gm/dL [facility] Platelet 111(L) 145 - 357 x10(3)/mc L [facility] RDW Standard Deviation 46.3(H) 36.0 - 45.0 fL [facility] RDW coefficient of variation 13.5 11.4 - 13.8 % [facility] Mean Platelet Volume 9.0 7.6 - 12.9 [facility] NRBC% auto 0.0 % [facility] NRBC Absolute 0.000 0.000 - 0.000 x10(3)/mc L [facility] Blood 02/19/2021 12:4 0 AM EDT 02/19/2021 12:50 AM EDT Narrative Resulting Agency Comment Spec In Lab Tayler Lopes MD HEMATOLOGY ORDERABLE S Performing Organization Address City/[facility]/ZIP Co de Phone Number [facility] [place] [address] * Magnesium (02/19/2021 12:40 AM EDT) Magnesium 0.73 0.69 - 1.07 mmol/L [facility] Blood 02/19/2021 12:4 0 AM EDT 02/19/2021 12:50 AM EDT Narrative Resulting Agency Comment Spec In Lab Feliciano Estrada MD CHEMISTRY ORDERABLE S Performing Organization Address City/[facility]/ZIP Co de Phone Number [facility] [place] [address] * (ABNORMAL) Basic Metabolic Panel (non-fasting) (02/19/2021 12:40 AM EDT) Glucose 90 65 - 199 mg/dL [facility] Comment:Diabetes: >=200 mg/d L plus symptoms Blood Urea Nitrogen 4(L) 10 - 20 mg/dL [facility] Creatinine 0.67(L) 0.80 - 1.50 mg/dL [facility] Sodium 140 135 - 145 mmol/L [facility] Potassium 3.3(L) 3.5 - 5.0 mmol/L [facility] Comment: Please note: ??Patients with WBC >100,000 may have falsely elevated Potassium levels. ??For accurate Potassium quantification in these patients send serum separator tube (gold top) for subsequent determinations. ??Contact the Clinical Chemistry Laboratory if there are any questions. Chloride 103 98 - 107 mmol/L [facility] Carbon Dioxide 30 22 - 31 mmol/L [facility] Anion Gap 7 5 - 15 mmol/L [facility] Calcium 8.7 8.5 - 10.5 mg/dL [facility] Est Glomerular Filtration Rate 94 >=60 mL/min/1. 73 m?? [facility] Comment: This patient? s estimated glomerular filtration rate (eGFR) is between 94 mL/min/1.73 m2 (patients with less muscle mass per kg body weight) and 109 mL/min/1.73 m2 (patients with more muscle mass per kg body weight) as determined by the CKD-EPI equation. Assessment of eGFR is not appropriate when creatinine concentrations are rapidly changing. For clinical decisions where creatinine clearance will affect therapy, a 24-hour urine creatinine clearance may be advised. Assignment of CKD stage 1 - 5 for patients with an eGFR near the transition point between stages may be based on clinical assessment of muscle mass and symptoms in addition to eGFR. Blood 02/19/2021 12:4 0 AM EDT 02/19/2021 12:50 AM EDT Narrative Resulting Agency Comment Spec In Lab Feliciano Estrada MD CHEMISTRY ORDERABLE S [facility] [place] [address] * (ABNORMAL) CT Chest Abdomen Pelvis wo Contrast (02/18/2021 8:43 PM EDT) Anatomical Region Laterality Modality Abdomen, Pelvis Computed Tomogra phy 02/18/2021 9:08 PM EDT Impressions 02/18/2021 11:49 PM EDT 1. ??No direct evidence of acute traumatic injury in the chest, abdomen, pelvis, or thoracolumbar spine. Nonspecific small amount of perihepatic fluid, below the attenuation expected for hemorrhage, favored to represent sequela of liver disease, given history of alcohol use disorder. 2. ??Complex cystic lesion in the left interpolar kidney measuring 3.8 cm, indeterminate, recommend further characterization with ultrasound. Unexpected finding 3. ??Eccentric wall thickening along the greater curvature as stomach, a nonspecific finding, may represent sequela of chronic gastritis; however, a malignant process, especially in this patient with prior history of lymphoma, is not definitively excluded. Recommend further characterization with direct visualization via endoscopy in the appropriate clinical setting. 4. ??Diffuse circumferential wall thickening of the urinary bladder and rectum, along with diffuse pelvic soft tissue stranding, may represent sequelae of prostate cancer radiation treatments, which ended in April 2020, per electronic medical record. 5. ??Diffusely increased attenuation of the liver measuring approximately 70 Hounsfield units, indeterminate finding, correlate with medication regimen. 6. ??Stable aneurysmal dilatation of the ascending, infrarenal aorta, and left common iliac artery. 7. ??Dilatation of the main pulmonary artery to 3.3 cm may indicate pulmonary hypertension. Preliminary report signed by: Tariq Gamboa at 02/18/2021 10:47 PM I have personally reviewed the image(s) and the resident's interpretation and agree with the findings, Damian Duggan MD at 02/18/2021 11:49 PM Thank you for letting us participate in the care of this patient. ??If you are a health care provider and have any questions regarding this report, please contact the number below. ??For patients who have questions please contact the health continuum of care manager that requested your imaging first. ? Electronically signed by: Damian Duggan MD, [facility] ([phone]), at 02/18/2021 11:49 PM Narrative 02/18/2021 11:49 PM EDT EXAMINATION: CT CHEST ABDOMEN PELVIS WO CONTRAST, CT THORACIC SPINE RECONSTRUCTION, CT LUMBAR SPINE RECONSTRUCTION CLINICAL HISTORY: Abdominal trauma, blunt fall, eFAST + in RUQ TECHNIQUE: Helical CT of the chest, abdomen and pelvis was performed without intravenous contrast. Reconstructions of the thoracic and lumbar spine were performed, as well. COMPARISON: CT scan of the chest, abdomen, and pelvis on 12/07/2018 CT scan of the abdomen and pelvis on 12/03/2020 FINDINGS: The absence of intravenous contrast limits the evaluation of solid viscera and vasculature. Chest: Lungs and large airways: Moderate upper lobe predominant centrilobular emphysema. Mild biapical pleuroparenchymal scarring. Unchanged anterior right upper lobe calcified granuloma. No focal or confluent airspace opacities. Patent central airways. Pleura: No pleural effusion or pneumothorax. Heart/vasculature: Normal heart size. Similar aneurysmal dilatation of the ascending aorta and main pulmonary artery, which measure 4.1 cm and 3.3 cm in maximum axial dimension, respectively. Multivessel coronary artery calcification, severe in the left anterior descending artery. Scattered calcification of the aortic valve and thoracic aorta. Lymph nodes, mediastinum, and cameron: No enlarged lymph nodes. Evaluation of the cameron limited by the absence of intravenous contrast. Mild circumferential wall thickening of the thoracic esophagus similar compared to 12/07/2018. Abdomen/pelvis: Liver: Normal size. Diffusely increased attenuation of the liver measuring approximately 70 Hounsfield units. Unchanged circumscribed simple cyst measuring 0.8 cm in the inferior right liver lobe (series 900 image 64). Bile ducts: Normal caliber. Gallbladder: Contracted gallbladder with ??calcified gallstone sitting ??within the gallbladder body. Normal gallbladder wall thickness. Pancreas: Moderate diffuse atrophy of the pancreas without ductal dilatation or peripancreatic stranding. Spleen: Normal. Adrenals: Right adrenal gland nodule measuring 1.0 cm (series 900 image 33) unchanged in size since 03/18/2015. Kidneys: Nonobstructive calculus in the inferior pole of the right kidney measuring 0.7 cm. Additional calculus in the interpolar right kidney measuring 0.4 cm and punctate calculus in the inferior pole of the left kidney. Normal caliber collecting system. Septated cortical cyst measuring simple fluid density with central calcification in the posterolateral left interpolar kidney measuring 3.5 x 3.8 cm, similar in size and appearance compared to 12/03/2020. Urinary Bladder: Diffuse circumferential wall thickening with amorphous calcification posteriorly. Mckeon catheter and balloon in place with postprocedural antidependent locules of air. Vasculature: Diffuse atherosclerotic calcification of the abdominal aorta and iliac arterial vasculature. Bilobed infrarenal aorta aneurysmal dilatation with the upper and lower aneurysms unchanged in size at 4.1 cm and 3.7 cm in maximum axial dimension. Unchanged aneurysmal dilatation of the distal left common iliac artery to 1.5 cm in maximum axial dimension. Lymph Nodes: No enlarged lymph nodes. Bowel: Normal caliber of the small and large bowel. Eccentric wall thickening along the greater curvature of the stomach. Circumferential wall thickening of the rectum similar from prior. Moderate colonic stool burden. Peritoneum and mesentery: Small amount of low attenuation perihepatic free fluid. No free air or loculated fluid collections. Mild mesenteric venous engorgement may be secondary to volume overload. Fat stranding throughout the pelvis. Abdominal wall: Mild anasarca may be secondary to volume overload. Reproductive organs: Brachytherapy present in the prostate gland. Osseous structures: Moderate diffuse osteopenia. Thoracic spine: With the exception of the chronic central compression deformity of the T12 vertebral body, the thoracic vertebral bodies are normal in height. Intact posterior elements. Normal alignment. Multilevel degenerative change characterized by lateral bridging osteophytes and mild bilateral facet arthropathy in the lower thoracic spine. Lumbar spine: Preserved vertebral body heights. Intact posterior elements. Normal alignment. Similar multilevel degenerative change compared to 12/07/2018 with intervertebral height loss most severe at L2-L3 and L3-L4 with associated cystic and sclerotic endplate change. Bilateral facet arthropathy observed throughout the lumbar spine but most prominent in the mid and lower lumbar spine, with kissing spinous processes are present. Anterior wedge deformity T12, unchanged from exam of 12/03/2020 Resulting Agency Comment Unexpected Finding Feliciano Estrada MD IMG CT ORDERABLES * CT Face wo Contrast (02/18/2021 8:43 PM EDT) Anatomical Region Laterality Modality Head Computed Tomogra phy Impressions 02/18/2021 9:06 PM EDT 1. ??Multiple sites of subarachnoid and intraventricular hemorrhage as detailed above. No significant mass effect. 2. ??Small subdural hematoma along the falx. 3. ??Interval increased size of a 1.1 cm left convexity subdural hygroma. 4. ??Extensive chronic dental disease associated with chronic maxillary sinus inflammation and reactive osseous changes. 5. ??No acute facial fractures. 6. ??No acute cervical spine fractures. Thank you for letting us participate in the care of this patient. ??If you are a health care provider and have any questions regarding this report, please contact the number below. ??For patients who have questions please contact the health continuum of care manager that requested your imaging first. ? Narrative 02/18/2021 9:06 PM EDT EXAMINATION: CT HEAD AND CERVICAL SPINE WO CONTRAST (GENERIC), CT FACE WO CONTRAST CLINICAL HISTORY: fall from standing TECHNIQUE: CT head, face and cervical spine performed without intravenous contrast administration. COMPARISON: CT head 12/07/2020. Brain MRI 08/26/2020. FINDINGS: CT head: Encephalomalacia involves the right frontal lobe operculum. Several punctate foci of hemorrhage identified within this encephalomalacia. Rounded focus of hemorrhage measuring 1.1 cm present along the right side of the septum pellucidum. Left convexity subdural hygroma measures 1.1 cm in size. This collection previously measured 5 mm. A small amount of isodense extra-axial material overlies the left parietal lobe and may represent a subacute subdural hematoma. Stability of the small amount of isodense extra-axial area overlying the left frontal lobe. Subarachnoid hemorrhage is present about the left sylvian fissure and basal cisterns, especially about the right ambient cistern. Trace subarachnoid hemorrhage in the right frontal lobe. Small amount of intraventricular blood layers dependently within the occipital horns of the lateral ventricles. Trace amount of sub-callosal hemorrhage about the genu. Small amount of subdural blood around the right tentorium. Ventricles are unchanged in size and configuration compared to prior. Left periorbital soft tissue hematoma is identified. Mastoid air cells are clear. No skull fractures. CT face: Dental disease with dental caries and periapical lucencies. Mild mucosal thickening of bilateral maxillary sinuses associated with diffuse osseous wall thickening indicating chronic inflammation likely related to the chronic dental disease. Reactive osseous changes also identified within the bilateral pterygoid plates. No facial fractures. CT cervical spine: No evidence for acute malalignment. No acute fracture deformities. No prevertebral soft tissue swelling. Emphysematous changes in the lung apices noted. Procedure Note Naty Chaidez MD - 02/18/2021 EXAMINATION: CT HEAD AND CERVICAL SPINE WO CONTRAST (GENERIC), CT FACEWO CONTRAST CLINICAL HISTORY: fall from standing TECHNIQUE: CT head, face and cervical spine performed without intravenous contrast administration. COMPARISON: CT head 12/07/2020. Brain MRI 08/26/2020. FINDINGS: CT head: Encephalomalacia involves the right frontal lobe operculum.Several punctate foci of hemorrhage identified within this encephalomalacia. Rounded focus of hemorrhage measuring 1.1 cm present along the right sideof the septum pellucidum. Left convexity subdural hygroma measures 1.1 cm in size. This collection previously measured 5 mm. A small amount of isodense extra-axialmaterial overlies the left parietal lobe and may represent a subacute subduralhematoma. Stability of the small amount of isodense extra-axial area overlying theleft frontal lobe. Subarachnoid hemorrhage is present about the left sylvian fissure andbasal cisterns, especially about the right ambient cistern. Trace subarachnoid hemorrhage in the right frontal lobe. Small amount of intraventricular blood layers dependently within theoccipital horns of the lateral ventricles. Trace amount of sub-callosal hemorrhage about the genu. Small amount of subdural blood around the right tentorium. Ventricles are unchanged in size and configuration compared to prior. Left periorbital soft tissue hematoma is identified. Mastoid air cellsare clear. No skull fractures. CT face: Dental disease with dental caries and periapical lucencies.Mild mucosal thickening of bilateral maxillary sinuses associated withdiffuse osseous wall thickening indicating chronic inflammation likely related tothe chronic dental disease. Reactive osseous changes also identified withinthe bilateral pterygoid plates. No facial fractures. CT cervical spine: No evidence for acute malalignment. No acute fracture deformities. No prevertebral soft tissue swelling. Emphysematous changesin the lung apices noted. IMPRESSION 1. Multiple sites of subarachnoid and intraventricular hemorrhage asdetailed above. No significant mass effect. 2. Small subdural hematoma along the falx. 3. Interval increased size of a 1.1 cm left convexity subdural hygroma. 4. Extensive chronic dental disease associated with chronic maxillarysinus inflammation and reactive osseous changes. 5. No acute facial fractures. 6. No acute cervical spine fractures. Thank you for letting us participate in the care of this patient. If youare a health care provider and have any questions regarding this report,please contact the number below. For patients who have questions please contactthe health continuum of care manager that requested your imaging first. Alex Carrillo MD IMG CT ORDERABLES * (ABNORMAL) CT Lumbar Spine Reconstruction (02/18/2021 8:43 PM EDT) Anatomical Region Laterality Modality L-spine Computed Tomogra phy 02/18/2021 9:08 PM EDT Impressions 02/18/2021 11:49 PM EDT 1. ??No direct evidence of acute traumatic injury in the chest, abdomen, pelvis, or thoracolumbar spine. Nonspecific small amount of perihepatic fluid, below the attenuation expected for hemorrhage, favored to represent sequela of liver disease, given history of alcohol use disorder. 2. ??Complex cystic lesion in the left interpolar kidney measuring 3.8 cm, indeterminate, recommend further characterization with ultrasound. Unexpected finding 3. ??Eccentric wall thickening along the greater curvature as stomach, a nonspecific finding, may represent sequela of chronic gastritis; however, a malignant process, especially in this patient with prior history of lymphoma, is not definitively excluded. Recommend further characterization with direct visualization via endoscopy in the appropriate clinical setting. 4. ??Diffuse circumferential wall thickening of the urinary bladder and rectum, along with diffuse pelvic soft tissue stranding, may represent sequelae of prostate cancer radiation treatments, which ended in April 2020, per electronic medical record. 5. ??Diffusely increased attenuation of the liver measuring approximately 70 Hounsfield units, indeterminate finding, correlate with medication regimen. 6. ??Stable aneurysmal dilatation of the ascending, infrarenal aorta, and left common iliac artery. 7. ??Dilatation of the main pulmonary artery to 3.3 cm may indicate pulmonary hypertension. Preliminary report signed by: Tariq Gamboa at 02/18/2021 10:47 PM I have personally reviewed the image(s) and the resident's interpretation and agree with the findings, Damian Duggan MD at 02/18/2021 11:49 PM Thank you for letting us participate in the care of this patient. ??If you are a health care provider and have any questions regarding this report, please contact the number below. ??For patients who have questions please contact the health continuum of care manager that requested your imaging first. ? Electronically signed by: Damian Duggan MD, [facility] ([phone]), at 02/18/2021 11:49 PM Narrative 02/18/2021 11:49 PM EDT EXAMINATION: CT CHEST ABDOMEN PELVIS WO CONTRAST, CT THORACIC SPINE RECONSTRUCTION, CT LUMBAR SPINE RECONSTRUCTION CLINICAL HISTORY: Abdominal trauma, blunt fall, eFAST + in RUQ TECHNIQUE: Helical CT of the chest, abdomen and pelvis was performed without intravenous contrast. Reconstructions of the thoracic and lumbar spine were performed, as well. COMPARISON: CT scan of the chest, abdomen, and pelvis on 12/07/2018 CT scan of the abdomen and pelvis on 12/03/2020 FINDINGS: The absence of intravenous contrast limits the evaluation of solid viscera and vasculature. Chest: Lungs and large airways: Moderate upper lobe predominant centrilobular emphysema. Mild biapical pleuroparenchymal scarring. Unchanged anterior right upper lobe calcified granuloma. No focal or confluent airspace opacities. Patent central airways. Pleura: No pleural effusion or pneumothorax. Heart/vasculature: Normal heart size. Similar aneurysmal dilatation of the ascending aorta and main pulmonary artery, which measure 4.1 cm and 3.3 cm in maximum axial dimension, respectively. Multivessel coronary artery calcification, severe in the left anterior descending artery. Scattered calcification of the aortic valve and thoracic aorta. Lymph nodes, mediastinum, and cameron: No enlarged lymph nodes. Evaluation of the cameron limited by the absence of intravenous contrast. Mild circumferential wall thickening of the thoracic esophagus similar compared to 12/07/2018. Abdomen/pelvis: Liver: Normal size. Diffusely increased attenuation of the liver measuring approximately 70 Hounsfield units. Unchanged circumscribed simple cyst measuring 0.8 cm in the inferior right liver lobe (series 900 image 64). Bile ducts: Normal caliber. Gallbladder: Contracted gallbladder with ??calcified gallstone sitting ??within the gallbladder body. Normal gallbladder wall thickness. Pancreas: Moderate diffuse atrophy of the pancreas without ductal dilatation or peripancreatic stranding. Spleen: Normal. Adrenals: Right adrenal gland nodule measuring 1.0 cm (series 900 image 33) unchanged in size since 03/18/2015. Kidneys: Nonobstructive calculus in the inferior pole of the right kidney measuring 0.7 cm. Additional calculus in the interpolar right kidney measuring 0.4 cm and punctate calculus in the inferior pole of the left kidney. Normal caliber collecting system. Septated cortical cyst measuring simple fluid density with central calcification in the posterolateral left interpolar kidney measuring 3.5 x 3.8 cm, similar in size and appearance compared to 12/03/2020. Urinary Bladder: Diffuse circumferential wall thickening with amorphous calcification posteriorly. Mckeon catheter and balloon in place with postprocedural antidependent locules of air. Vasculature: Diffuse atherosclerotic calcification of the abdominal aorta and iliac arterial vasculature. Bilobed infrarenal aorta aneurysmal dilatation with the upper and lower aneurysms unchanged in size at 4.1 cm and 3.7 cm in maximum axial dimension. Unchanged aneurysmal dilatation of the distal left common iliac artery to 1.5 cm in maximum axial dimension. Lymph Nodes: No enlarged lymph nodes. Bowel: Normal caliber of the small and large bowel. Eccentric wall thickening along the greater curvature of the stomach. Circumferential wall thickening of the rectum similar from prior. Moderate colonic stool burden. Peritoneum and mesentery: Small amount of low attenuation perihepatic free fluid. No free air or loculated fluid collections. Mild mesenteric venous engorgement may be secondary to volume overload. Fat stranding throughout the pelvis. Abdominal wall: Mild anasarca may be secondary to volume overload. Reproductive organs: Brachytherapy present in the prostate gland. Osseous structures: Moderate diffuse osteopenia. Thoracic spine: With the exception of the chronic central compression deformity of the T12 vertebral body, the thoracic vertebral bodies are normal in height. Intact posterior elements. Normal alignment. Multilevel degenerative change characterized by lateral bridging osteophytes and mild bilateral facet arthropathy in the lower thoracic spine. Lumbar spine: Preserved vertebral body heights. Intact posterior elements. Normal alignment. Similar multilevel degenerative change compared to 12/07/2018 with intervertebral height loss most severe at L2-L3 and L3-L4 with associated cystic and sclerotic endplate change. Bilateral facet arthropathy observed throughout the lumbar spine but most prominent in the mid and lower lumbar spine, with kissing spinous processes are present. Anterior wedge deformity T12, unchanged from exam of 12/03/2020 Alex Carrillo MD IMG CT ORDERABLES * (ABNORMAL) CT Thoracic Spine Reconstruction (02/18/2021 8:43 PM EDT) Anatomical Region Laterality Modality T-spine Computed Tomogra phy 02/18/2021 9:08 PM EDT Impressions 02/18/2021 11:49 PM EDT 1. ??No direct evidence of acute traumatic injury in the chest, abdomen, pelvis, or thoracolumbar spine. Nonspecific small amount of perihepatic fluid, below the attenuation expected for hemorrhage, favored to represent sequela of liver disease, given history of alcohol use disorder. 2. ??Complex cystic lesion in the left interpolar kidney measuring 3.8 cm, indeterminate, recommend further characterization with ultrasound. Unexpected finding 3. ??Eccentric wall thickening along the greater curvature as stomach, a nonspecific finding, may represent sequela of chronic gastritis; however, a malignant process, especially in this patient with prior history of lymphoma, is not definitively excluded. Recommend further characterization with direct visualization via endoscopy in the appropriate clinical setting. 4. ??Diffuse circumferential wall thickening of the urinary bladder and rectum, along with diffuse pelvic soft tissue stranding, may represent sequelae of prostate cancer radiation treatments, which ended in April 2020, per electronic medical record. 5. ??Diffusely increased attenuation of the liver measuring approximately 70 Hounsfield units, indeterminate finding, correlate with medication regimen. 6. ??Stable aneurysmal dilatation of the ascending, infrarenal aorta, and left common iliac artery. 7. ??Dilatation of the main pulmonary artery to 3.3 cm may indicate pulmonary hypertension. Preliminary report signed by: Tariq Gamboa at 02/18/2021 10:47 PM I have personally reviewed the image(s) and the resident's interpretation and agree with the findings, Damian Duggan MD at 02/18/2021 11:49 PM Thank you for letting us participate in the care of this patient. ??If you are a health care provider and have any questions regarding this report, please contact the number below. ??For patients who have questions please contact the health continuum of care manager that requested your imaging first. ? Electronically signed by: Damian Duggan MD, [facility] ([phone]), at 02/18/2021 11:49 PM Narrative 02/18/2021 11:49 PM EDT EXAMINATION: CT CHEST ABDOMEN PELVIS WO CONTRAST, CT THORACIC SPINE RECONSTRUCTION, CT LUMBAR SPINE RECONSTRUCTION CLINICAL HISTORY: Abdominal trauma, blunt fall, eFAST + in RUQ TECHNIQUE: Helical CT of the chest, abdomen and pelvis was performed without intravenous contrast. Reconstructions of the thoracic and lumbar spine were performed, as well. COMPARISON: CT scan of the chest, abdomen, and pelvis on 12/07/2018 CT scan of the abdomen and pelvis on 12/03/2020 FINDINGS: The absence of intravenous contrast limits the evaluation of solid viscera and vasculature. Chest: Lungs and large airways: Moderate upper lobe predominant centrilobular emphysema. Mild biapical pleuroparenchymal scarring. Unchanged anterior right upper lobe calcified granuloma. No focal or confluent airspace opacities. Patent central airways. Pleura: No pleural effusion or pneumothorax. Heart/vasculature: Normal heart size. Similar aneurysmal dilatation of the ascending aorta and main pulmonary artery, which measure 4.1 cm and 3.3 cm in maximum axial dimension, respectively. Multivessel coronary artery calcification, severe in the left anterior descending artery. Scattered calcification of the aortic valve and thoracic aorta. Lymph nodes, mediastinum, and cameron: No enlarged lymph nodes. Evaluation of the cameron limited by the absence of intravenous contrast. Mild circumferential wall thickening of the thoracic esophagus similar compared to 12/07/2018. Abdomen/pelvis: Liver: Normal size. Diffusely increased attenuation of the liver measuring approximately 70 Hounsfield units. Unchanged circumscribed simple cyst measuring 0.8 cm in the inferior right liver lobe (series 900 image 64). Bile ducts: Normal caliber. Gallbladder: Contracted gallbladder with ??calcified gallstone sitting ??within the gallbladder body. Normal gallbladder wall thickness. Pancreas: Moderate diffuse atrophy of the pancreas without ductal dilatation or peripancreatic stranding. Spleen: Normal. Adrenals: Right adrenal gland nodule measuring 1.0 cm (series 900 image 33) unchanged in size since 03/18/2015. Kidneys: Nonobstructive calculus in the inferior pole of the right kidney measuring 0.7 cm. Additional calculus in the interpolar right kidney measuring 0.4 cm and punctate calculus in the inferior pole of the left kidney. Normal caliber collecting system. Septated cortical cyst measuring simple fluid density with central calcification in the posterolateral left interpolar kidney measuring 3.5 x 3.8 cm, similar in size and appearance compared to 12/03/2020. Urinary Bladder: Diffuse circumferential wall thickening with amorphous calcification posteriorly. Mckeon catheter and balloon in place with postprocedural antidependent locules of air. Vasculature: Diffuse atherosclerotic calcification of the abdominal aorta and iliac arterial vasculature. Bilobed infrarenal aorta aneurysmal dilatation with the upper and lower aneurysms unchanged in size at 4.1 cm and 3.7 cm in maximum axial dimension. Unchanged aneurysmal dilatation of the distal left common iliac artery to 1.5 cm in maximum axial dimension. Lymph Nodes: No enlarged lymph nodes. Bowel: Normal caliber of the small and large bowel. Eccentric wall thickening along the greater curvature of the stomach. Circumferential wall thickening of the rectum similar from prior. Moderate colonic stool burden. Peritoneum and mesentery: Small amount of low attenuation perihepatic free fluid. No free air or loculated fluid collections. Mild mesenteric venous engorgement may be secondary to volume overload. Fat stranding throughout the pelvis. Abdominal wall: Mild anasarca may be secondary to volume overload. Reproductive organs: Brachytherapy present in the prostate gland. Osseous structures: Moderate diffuse osteopenia. Thoracic spine: With the exception of the chronic central compression deformity of the T12 vertebral body, the thoracic vertebral bodies are normal in height. Intact posterior elements. Normal alignment. Multilevel degenerative change characterized by lateral bridging osteophytes and mild bilateral facet arthropathy in the lower thoracic spine. Lumbar spine: Preserved vertebral body heights. Intact posterior elements. Normal alignment. Similar multilevel degenerative change compared to 12/07/2018 with intervertebral height loss most severe at L2-L3 and L3-L4 with associated cystic and sclerotic endplate change. Bilateral facet arthropathy observed throughout the lumbar spine but most prominent in the mid and lower lumbar spine, with kissing spinous processes are present. Anterior wedge deformity T12, unchanged from exam of 12/03/2020 Alex Carrillo MD IMG CT ORDERABLES * CT Head & Cervical Spine wo Contrast (Generic) (02/18/2021 8:43 PM EDT) Anatomical Region Laterality Modality Head Computed Tomogra phy 02/18/2021 9:08 PM EDT Impressions 02/18/2021 9:06 PM EDT 1. ??Multiple sites of subarachnoid and intraventricular hemorrhage as detailed above. No significant mass effect. 2. ??Small subdural hematoma along the falx. 3. ??Interval increased size of a 1.1 cm left convexity subdural hygroma. 4. ??Extensive chronic dental disease associated with chronic maxillary sinus inflammation and reactive osseous changes. 5. ??No acute facial fractures. 6. ??No acute cervical spine fractures. Thank you for letting us participate in the care of this patient. ??If you are a health care provider and have any questions regarding this report, please contact the number below. ??For patients who have questions please contact the health continuum of care manager that requested your imaging first. ? Narrative 02/18/2021 9:06 PM EDT EXAMINATION: CT HEAD AND CERVICAL SPINE WO CONTRAST (GENERIC), CT FACE WO CONTRAST CLINICAL HISTORY: fall from standing TECHNIQUE: CT head, face and cervical spine performed without intravenous contrast administration. COMPARISON: CT head 12/07/2020. Brain MRI 08/26/2020. FINDINGS: CT head: Encephalomalacia involves the right frontal lobe operculum. Several punctate foci of hemorrhage identified within this encephalomalacia. Rounded focus of hemorrhage measuring 1.1 cm present along the right side of the septum pellucidum. Left convexity subdural hygroma measures 1.1 cm in size. This collection previously measured 5 mm. A small amount of isodense extra-axial material overlies the left parietal lobe and may represent a subacute subdural hematoma. Stability of the small amount of isodense extra-axial area overlying the left frontal lobe. Subarachnoid hemorrhage is present about the left sylvian fissure and basal cisterns, especially about the right ambient cistern. Trace subarachnoid hemorrhage in the right frontal lobe. Small amount of intraventricular blood layers dependently within the occipital horns of the lateral ventricles. Trace amount of sub-callosal hemorrhage about the genu. Small amount of subdural blood around the right tentorium. Ventricles are unchanged in size and configuration compared to prior. Left periorbital soft tissue hematoma is identified. Mastoid air cells are clear. No skull fractures. CT face: Dental disease with dental caries and periapical lucencies. Mild mucosal thickening of bilateral maxillary sinuses associated with diffuse osseous wall thickening indicating chronic inflammation likely related to the chronic dental disease. Reactive osseous changes also identified within the bilateral pterygoid plates. No facial fractures. CT cervical spine: No evidence for acute malalignment. No acute fracture deformities. No prevertebral soft tissue swelling. Emphysematous changes in the lung apices noted. Procedure Note Naty Chaidez MD - 02/18/2021 EXAMINATION: CT HEAD AND CERVICAL SPINE WO CONTRAST (GENERIC), CT FACEWO CONTRAST CLINICAL HISTORY: fall from standing TECHNIQUE: CT head, face and cervical spine performed without intravenous contrast administration. COMPARISON: CT head 12/07/2020. Brain MRI 08/26/2020. FINDINGS: CT head: Encephalomalacia involves the right frontal lobe operculum.Several punctate foci of hemorrhage identified within this encephalomalacia. Rounded focus of hemorrhage measuring 1.1 cm present along the right sideof the septum pellucidum. Left convexity subdural hygroma measures 1.1 cm in size. This collection previously measured 5 mm. A small amount of isodense extra-axialmaterial overlies the left parietal lobe and may represent a subacute subduralhematoma. Stability of the small amount of isodense extra-axial area overlying theleft frontal lobe. Subarachnoid hemorrhage is present about the left sylvian fissure andbasal cisterns, especially about the right ambient cistern. Trace subarachnoid hemorrhage in the right frontal lobe. Small amount of intraventricular blood layers dependently within theoccipital horns of the lateral ventricles. Trace amount of sub-callosal hemorrhage about the genu. Small amount of subdural blood around the right tentorium. Ventricles are unchanged in size and configuration compared to prior. Left periorbital soft tissue hematoma is identified. Mastoid air cellsare clear. No skull fractures. CT face: Dental disease with dental caries and periapical lucencies.Mild mucosal thickening of bilateral maxillary sinuses associated withdiffuse osseous wall thickening indicating chronic inflammation likely related tothe chronic dental disease. Reactive osseous changes also identified withinthe bilateral pterygoid plates. No facial fractures. CT cervical spine: No evidence for acute malalignment. No acute fracture deformities. No prevertebral soft tissue swelling. Emphysematous changesin the lung apices noted. IMPRESSION 1. Multiple sites of subarachnoid and intraventricular hemorrhage asdetailed above. No significant mass effect. 2. Small subdural hematoma along the falx. 3. Interval increased size of a 1.1 cm left convexity subdural hygroma. 4. Extensive chronic dental disease associated with chronic maxillarysinus inflammation and reactive osseous changes. 5. No acute facial fractures. 6. No acute cervical spine fractures. Thank you for letting us participate in the care of this patient. If youare a health care provider and have any questions regarding this report,please contact the number below. For patients who have questions please contactthe health continuum of care manager that requested your imaging first. Alex Carrillo MD IMG CT ORDERABLES * Valproic Acid Level, Total (02/18/2021 8:14 PM EDT) Valproic Acid <3 mg/L [facility] Comment: Therapeutic Range: Anticonvulsant Therapy: ??50-100 mg/L Manic Episodes Associated with Bipolar Disorder: ??50-125 mg/L Blood Venous Draw / Unknown 02/18/2021 8:14 PM EDT 02/19/2021 7:23 AM EDT Narrative Resulting Agency Comment Spec In Lab Tayler Lopes MD CHEMISTRY ORDERABLES [facility] [place] [address] * (ABNORMAL) Rapid Drug Screen w/o Confirmation, Urine (02/18/2021 8:14 PM EDT) Barbiturates Screen, Urine None Detected None Detected [facility] Comment: The barbiturate screen detects barbiturates at concentrations >200 ng/mL. Note: Not all barbiturates cross-react equally with antibody used in this screen. A ? Presumptive Positive? result indicates that the screening result was positive but has not yet been confirmed by a highly-specific method. As with any screen, occasional false positive results from cross-reacting substances may occur. Not for Medico-Legal Purposes. Benzodiazepines Screen, Urine None Detected None Detected [facility] Comment: The benzodiazepines screen detects benzodiazepines at concentrations >100 ng/mL. Not all benzodiazepines cross-react equally with antibody used in this screen. Due to the low dosage of clonazepam, false negatives may be obtained due to low concentration of clonazepam metabolites. A ? Presumptive Positive? result indicates that the screening result was positive but has not yet been confirmed by a highly-specific method. As with any screen, occasional false positive results from cross-reacting substances may occur. Not for Medico-Legal Purposes. Cocaine Screen, Urine None Detected None Detected [facility] Comment: The cocaine metabolites screen detects benzoylecgonine (Cocaine Metabolite) at concentrations >150 ng/mL. A ? Presumptive Positive? result indicates that the screening result was positive but has not yet been confirmed by a highly-specific method. As with any screen, occasional false positive results from cross-reacting substances may occur. Not for Medico-Legal Purposes. Methadone Metabolites Screen, Urine None Detected None Detected [facility] Comment: The methadone metabolite screen detects EDDP (major methadone metabolite) at concentrations >100 ng/mL. A ? Presumptive Positive? result indicates that the screening result was positive but has not yet been confirmed by a highly-specific method. As with any screen, occasional false positive results from cross-reacting substances may occur. Not for Medico-Legal Purposes. Opiate Screen, Urine Presumptive Pos(A) None Detected [facility] Comment: The opiates screen detects opiates at concentrations >300 ng/mL. Please note that oxycodone, oxymorphone, fentanyl, tramadol, and other synthetic opioids are not detected by the opiate screen. A ? Presumptive Positive? result indicates that the screening result was positive but has not yet been confirmed by a highly-specific method. As with any screen, occasional false positive results from cross-reacting substances may occur. Not for Medico-Legal Purposes. Cannabinoid Screen, Urine None Detected None Detected [facility] Comment: The marijuana metabolites screen detects the THC metabolite ([id number]-7-carboxy-delta 9-THC) at concentrations >20 ng/mL. A ? Presumptive Positive? result indicates that the screening result was positive but has not yet been confirmed by a highly-specific method. As with any screen, occasional false positive results from cross-reacting substances may occur. Not for Medico-Legal Purposes. Oxycodone Screen, Urine None Detected None Detected [facility] Comment: The oxycodone screen detects oxycodone and oxymorphone at concentrations >100 ng/mL. A ? Presumptive Positive? result indicates that the screening result was positive but has not yet been confirmed by a highly-specific method. As with any screen, occasional false positive results from cross-reacting substances may occur. Not for Medico-Legal Purposes. Buprenorphine Screen, Urine None Detected None Detected [facility] Comment: The buprenorphine screen detects buprenorphine at concentrations >5 ng/mL. A ? Presumptive Positive? result indicates that the screening result was positive but has not yet been confirmed by a highly-specific method. As with any screen, occasional false positive results from cross-reacting substances may occur. Not for Medico-Legal Purposes. Fentanyl Screen, Urine None Detected None Detected [facility] Comment: The fentanyl screen detects fentanyl at concentrations >2 ng/mL. A ? Presumptive Positive? result indicates that the screening result was positive but has not yet been confirmed by a highly-specific method. As with any screen, occasional false positive results from cross-reacting substances may occur. Not for Medico-Legal Purposes. Tricyclics Screen, Urine None Detected None Detected [facility] Comment: The tricyclics screen detects tricyclic antidepressants at concentrations >150 ng/mL. Not all tricyclics cross-react equally with the antibody used in this screen. A ? Presumptive Positive? result indicates that the screening result was positive but has not yet been confirmed by a highly-specific method. As with any screen, occasional false positive results from cross-reacting substances may occur. Not for Medico-Legal Purposes. Ethanol Screen, Urine None Detected None Detected [facility] Comment:This urine ethanol a ssay detects ethanol at concentrations >/= 100 mg/L. Amphetamines Screen, Urine None Detected None Detected [facility] Comment: The amphetamine screen detects d-amphetamine and d-methamphetamine at concentrations >300 ng/mL. A ? Presumptive Positive? result indicates that the screening result was positive but has not yet been confirmed by a highly-specific method. As with any screen, occasional false positive results from cross-reacting substances may occur. Not for Medico-Legal Purposes. Adulterants Screen, Urine None Detected None Detected [facility] Comment: No adulteration or dilution of this urine sample was detected. All urine samples submitted for urine drugs of abuse analysis are tested for creatinine concentration, pH, and for the presence of oxidants, nitrites, and chromate. Urine 02/18/2021 8:14 PM EDT 02/18/2021 8:27 PM EDT Narrative Resulting Agency Comment Spec In Lab Feliciano Estrada MD CHEMISTRY ORDERABLE S Performing Organization Address [facility]/ZIP Co de Phone Number [facility] [place] [address] * Rapid Drug Screen, Urine (CHRIS Request) (02/18/2021 8:14 PM EDT) CHRIS Conf Requested No [facility] CHRIS Requested See Comment [facility] Comment:Refer to Rapid Drug Screen w/o Confirmation, Urine for results. Urine 02/18/2021 8:14 PM EDT 02/18/2021 8:27 PM EDT Narrative Resulting Agency Comment Spec In Lab Alex Carrillo MD URINE ORDERABLES Performing Organization Address [facility] Co de Phone Number [facility] [place] [address] * Lacosamide Level (02/18/2021 8:13 PM EDT) Lacosamide Level (DECEMBER) 8.7 1.0 - 10.0 mcg/mL [facility] Comment: ADDITIONAL INFORMATION This test was developed and its performance characteristics determined by [facility] in a manner consistent with CLIA requirements. This test has not been cleared or approved by the U.S. Food and Drug Administration. Test Performed by: [facility] - [address] [address] Trackwalker: Russel Clemons M.D. Ph.D.; CLIA# [id number] Blood Venous Draw / Unknown 02/18/2021 8:13 PM EDT 02/19/2021 9:42 AM EDT Narrative Resulting Agency Comment Spec In Lab Tayler Lopes MD LAB SEND OUT ORDERAB LES Performing Organization Address [facility] Co de Phone Number [facility] [place] [address] * Valproic Acid Level, Total (02/18/2021 8:13 PM EDT) [facility] Valproic Acid Not Perf mg/L [facility] Comment: cancelled by floor Called by: domenic, Read back by: Michael Mansfield, Date/Time:02/19/21 05:35. Therapeutic Range: Anticonvulsant Therapy: ??50-100 mg/L Manic Episodes Associated with Bipolar Disorder: ??50-125 mg/L Blood Venous Draw / Unknown 02/18/2021 8:13 PM EDT 02/18/2021 8:52 PM EDT Narrative Resulting Agency Comment Spec In Lab Tayler Lopes MD CHEMISTRY ORDERABLES Performing Organization Address [facility] de Phone Number [facility] [place] [address] * Type and Screen Validity (02/18/2021 8:13 PM EDT) [facility] T&S only valid at [facility] Comment:This Type and Screen result is only valid at the [facility] Blood 02/18/2021 8:13 PM EDT 02/18/2021 8:19 PM EDT Narrative Resulting Agency Comment Spec In Lab Feliciano Estrada MD BLOOD BANK LAB ORDE CHRISTEN Performing Organization Address [facility] Co de Phone Number [facility] [place] [address] * (ABNORMAL) Urine culture (02/18/2021 8:13 PM EDT) [facility] Urine Culture Greater than 100,000 cfu/ml Klebsiella species : two morphologies(A ) [facility] Organism Klebsiella species(A) [facility] Organism Klebsiella species(A) [facility] Clean Catch Urine 02/18/2021 8:13 PM EDT 02/18/2021 10:36 PM EDT Narrative Resulting Agency Comment Spec In Lab Organism Antibiotic Method Susceptibility Klebsiella species Amikacin VITEK 2 METHOD Sensitive Klebsiella species Ampicillin + Sulbactam VITEK 2 METH OD Sensitive Klebsiella species Aztreonam VITEK 2 METHOD Sensitive Klebsiella species Cefazolin VITEK 2 METHOD Sensitive Klebsiella species Ceftazidime VITEK 2 METHOD <=1: Sensitive Klebsiella species Ceftriaxone VITEK 2 METHOD Sensitive Klebsiella species Ertapenem VITEK 2 METHOD Sensitive Klebsiella species Gentamicin VITEK 2 METHOD Sensitive Klebsiella species Levofloxacin VITEK 2 METHOD Sensitive Comment: Levofloxacin and Ciprofloxacin may not adequately treat infections in critically ill patients even when isolates test susceptible in the laboratory. Contact Infectious Disease before using in critically ill patients. Klebsiella species Meropenem VITEK 2 METHOD <=0.25: Sensitive Klebsiella species Nitrofurantoin VITEK 2 METHOD Sensitive Klebsiella species Piperacillin/Tazobactam VITEK 2 MET HOD <=4: Sensitive Klebsiella species Tetracycline VITEK 2 METHOD Sensitive Klebsiella species Tobramycin VITEK 2 METHOD Sensitive Klebsiella species Trimethoprim/Sulfa VITEK 2 METHOD Sensitive Klebsiella species Amikacin VITEK 2 METHOD Sensitive Klebsiella species Ampicillin + Sulbactam VITEK 2 METH OD Sensitive Klebsiella species Aztreonam VITEK 2 METHOD Sensitive Klebsiella species Cefazolin VITEK 2 METHOD Sensitive Klebsiella species Ceftazidime VITEK 2 METHOD <=1: Sensitive Klebsiella species Ceftriaxone VITEK 2 METHOD Sensitive Klebsiella species Ertapenem VITEK 2 METHOD Sensitive Klebsiella species Gentamicin VITEK 2 METHOD Sensitive Klebsiella species Levofloxacin VITEK 2 METHOD Sensitive Comment: Levofloxacin and Ciprofloxacin may not adequately treat infections in critically ill patients even when isolates test susceptible in the laboratory. Contact Infectious Disease before using in critically ill patients. Klebsiella species Meropenem VITEK 2 METHOD <=0.25: Sensitive Klebsiella species Nitrofurantoin VITEK 2 METHOD Sensitive Klebsiella species Piperacillin/Tazobactam VITEK 2 MET HOD <=4: Sensitive Klebsiella species Tetracycline VITEK 2 METHOD Sensitive Klebsiella species Tobramycin VITEK 2 METHOD Sensitive Klebsiella species Trimethoprim/Sulfa VITEK 2 METHOD Sensitive Feilciano Estrada MD MICROBIOLOGY - GENE RAL ORDERABLES Performing Organization Address [facility]/ZIP Co de Phone Number [facility] [place] [address] * (ABNORMAL) Urinalysis Microscopic Exam (02/18/2021 8:13 PM EDT) RBC, Urine 41(H) 0 - 3 /HPF [facility] WBC, Urine 46(H) 0 - 3 /HPF [facility] Bacteria, Urine Many(A) None /HPF [facility] Squamous Epithelial Cells Raw Data, Urine 1 <=4 /HPF [facility] Hyaline Casts, Urine 34(H) 0 - 2 /LPF [facility] Clean Catch Urine 02/18/2021 8:13 PM EDT 02/18/2021 8:27 PM EDT Narrative Resulting Agency Comment Spec In Lab Feliciano Estrada MD URINE ORDERABLES Performing Organization Address [facility]/ZIP Co de Phone Number [facility] [place] [address] * ABORH Recheck Status (02/18/2021 8:13 PM EDT) AB[facility] Recheck Order Order Placed [facility] ABORH Type Recheck Complete [facility] Blood 02/18/2021 8:13 PM EDT 02/18/2021 8:19 PM EDT Narrative Resulting Agency Comment Spec In Lab Feliciano Estrada MD BLOOD BANK LAB ORDE RABLES Performing Organization Address City/[facility]/ZIP Co de Phone Number [facility] [place] [address] * Gold Tube HOLD (02/18/2021 8:13 PM EDT) Gold Hold Sample in lab. [facility] Blood Venous Draw / Unknown 02/18/2021 8:13 PM EDT 02/18/2021 8:26 PM EDT Feliciano Estrada MD CHEMISTRY ORDERABLE S [facility] [place] [address] * (ABNORMAL) Differential, Automated (02/18/2021 8:13 PM EDT) Neutrophil % 81.8 % [facility] Neutrophil Absolute 8.43(H) 1.70 - 6.10 x10(3)/[facility] Lymph % 9.8 % [facility] Lymphocytes Abs 1.0 0.9 - 3.2 x10(3)/[facility] Monocyte % 6.3 % [facility] Monocyte Abs 0.6 0.3 - 0.9 x10(3)/[facility] Eos % 1.1 % [facility] Eosinophils Abs 0.1 0.0 - 0.4 x10(3)/[facility] Basophil % 0.4 % [facility] Baso Absolute 0.0 0.0 - 0.1 x10(3)/[facility] Immature Gran % 0.60 % [facility] Comment: Immature granulocytes(IG's)percentage and absolute count will include metamyelocytes, myelocytes, and promyelocytes. Blood smears from CBCs yielding IG's will be scanned manually for concordance. If this scan disagrees with the automated IG or if promyelocytes are noted, a manual differential will be performed. Immature Gran Absolute 0.06(H) 0.00 - 0.04 x10(3)/ L [facility] Blood 02/18/2021 8:13 PM EDT 02/18/2021 8:26 PM EDT Narrative Resulting Agency Comment Spec In Lab Feliciano Estrada MD HEMATOLOGY ORDERABL ES Performing Organization Address City/[facility]/ZIP Co de Phone Number [facility] [place] [address] * (ABNORMAL) Hemogram (02/18/2021 8:13 PM EDT) White Blood Cell 10.3(H) 4.0 - 9.5 x10(3)/mc L [facility] Red Blood Cell 3.77(L) 4.58 - 5.54 x10(6)/mc L [facility] Hemoglobin 11.7(L) 13.7 - 16.5 gm/dL [facility] Hematocrit 34.8(L) 40.5 - 48.5 % [facility] Mean Cell Volume 92.3 82.9 - 93.1 fL [facility] Mean Cell Hemoglobin 31.0 27.5 - 32.1 pg [facility] Mean Cell Hemoglobin Concentration 33.6 32.0 - 35.7 gm/dL [facility] Platelet 111(L) 145 - 357 x10(3)/mc L [facility] RDW Standard Deviation 46.0(H) 36.0 - 45.0 fL [facility] RDW coefficient of variation 13.5 11.4 - 13.8 % [facility] Mean Platelet Volume 9.1 7.6 - 12.9 fL [facility] NRBC% auto 0.0 % [facility] NRBC Absolute 0.000 0.000 - 0.000 x10(3)/mc L [facility] Blood 02/18/2021 8:13 PM EDT 02/18/2021 8:26 PM EDT Narrative Resulting Agency Comment Spec In Lab Feliciano Estrada MD HEMATOLOGY ORDERABL ES [facility] [place] [address] * Antibody screen (02/18/2021 8:13 PM EDT) Ab Screen Interp Negative [facility] Expires at [id number] on: 02/21/2021 [facility] Blood 02/18/2021 8:13 PM EDT 02/18/2021 8:19 PM EDT Narrative Resulting Agency Comment Spec In Lab Feliciano Estrada MD BLOOD BANK LAB ORDJannette VELÁSQUEZ [facility] [place] [address] * ABO/Rh Typing (02/18/2021 8:13 PM EDT) Pathologist [facility] ABORH Type A Pos [facility] Blood 02/18/2021 8:13 PM EDT 02/18/2021 8:19 PM EDT Narrative Resulting Agency Comment Spec In Lab Feliciano Estrada MD BLOOD BANK LAB ORDJannette VELÁSQUEZ Performing Organization Address City/[facility]/ZIP Co de Phone Number [facility] [place] [address] * (ABNORMAL) Urinalysis with reflex Culture (02/18/2021 8:13 PM EDT) [facility] Glucose, Urine Dipstick Negative Negative mg/dL [facility] Protein, Urine Dipstick Trace(A) Negative mg/dL [facility] Bilirubin, Urine Dipstick Negative Negative mg/dL [facility] Comment: Clinical correlation required for positive Urine Bilirubin results as false positive may occur with some drugs and drug related products. If a false positive is suspected a serum total bilirubin should be considered if clinically indicated. Urobilinogen, Urine Dipstick Normal Normal mg/dL [facility] pH, Urn (dipstick) 8.0 5.0 - 8.0 [facility] Blood, Urine Dipstick Moderate(A) Negative mg/dL [facility] Ketone, Urine Dipstick Negative Negative mg/dL [facility] Nitrite, Urine Dipstick Positive(A) Negative [facility] Leukocytes, Urine Dipstick Moderate(A) Negative [facility] Appearance, Urine Dipstick Cloudy(A) Clear [facility] Specific [place] Urine Automated 1.011 1.005 - 1.030 [facility] Color, Urine Dipstick Yellow Yellow [facility] Reflex to Culture Yes [facility] Clean Catch Urine 02/18/2021 8:13 PM EDT 02/18/2021 8:27 PM EDT Narrative Resulting Agency Comment Spec In Lab Alex Carrillo MD URINE ORDERABLES Performing Organization Address [facility] Co de Phone Number [facility] [place] [address] * Ethanol Level (02/18/2021 8:13 PM EDT) Ethanol <100 <=99 mg/L [facility] Comment: Greater than 800 mg/L (0.08%) should be considered intoxicated. 3400 to 4500 mg/L (0.34 - 0.45%) is considered severe intoxication. Greater than 5500 mg/L (0.55%) is usually fatal. Blood 02/18/2021 8:13 PM EDT 02/18/2021 8:26 PM EDT Narrative Resulting Agency Comment Spec In Lab Alex Carrillo MD CHEMISTRY ORDERABLE S Performing Organization Address [facility]/ZIP Co de Phone Number [facility] [place] [address] * APTT (02/18/2021 8:13 PM EDT) Partial Thromboplastin Time 27 25 - 37 sec [facility] Comment: The PTT is NOT appropriate for heparin monitoring. Use the Anti-Xa level for heparin monitoring (HEP UFH) or LMWH monitoring (HEP LMW). A PTT less than 37 seconds generally indicates adequate hemostasis. Blood 02/18/2021 8:13 PM EDT 02/18/2021 8:26 PM EDT Narrative Resulting Agency Comment Spec In Lab Alex Carrillo MD HEMATOLOGY ORDERABL ES Performing Organization Address [facility] de Phone Number [facility] [place] [address] * Prothrombin Time (02/18/2021 8:13 PM EDT) Prothrombin Time 11.6 9.4 - 12.5 sec [facility] International Normalization Ratio 1.0 [facility] Comment: An INR <2.0 indicates adequate procoagulant activity for hemostasis in most patients without underlying bleeding disorders, though the INR may not adequately reflect hemostatic capacity in patients with liver disease and synthetic impairment. The recommended target INR range for therapeutic anticoagulation is 2.0 ? 3.0 for most applications, though lower and higher ranges may be appropriate depending on clinical circumstances. Blood 02/18/2021 8:13 PM EDT 02/18/2021 8:26 PM EDT Narrative Resulting Agency Comment Spec In Lab Alex Carrillo MD HEMATOLOGY ORDERABL ES Performing Organization Address [facility] de Phone Number [facility] [place] [address] * (ABNORMAL) Basic Metabolic Panel (non-fasting) (02/18/2021 8:13 PM EDT) Glucose 84 65 - 199 mg/dL [facility] Comment:Diabetes: >=200 mg/d L plus symptoms Blood Urea Nitrogen 5(L) 10 - 20 mg/dL [facility] Creatinine 0.65(L) 0.80 - 1.50 mg/dL [facility] LABORATORY Sodium 142 135 - 145 mmol/L [facility] Potassium 3.3(L) 3.5 - 5.0 mmol/L [facility] Comment: Please note: ??Patients with WBC >100,000 may have falsely elevated Potassium levels. ??For accurate Potassium quantification in these patients send serum separator tube (gold top) for subsequent determinations. ??Contact the Clinical Chemistry Laboratory if there are any questions. Chloride 106 98 - 107 mmol/L [facility] Carbon Dioxide 31 22 - 31 mmol/L [facility] Anion Gap 5 5 - 15 mmol/L [facility] Calcium 8.7 8.5 - 10.5 mg/dL [facility] Est Glomerular Filtration Rate 95 >=60 mL/min/1. 73 m?? [facility] Comment: This patient? s estimated glomerular filtration rate (eGFR) is between 95 mL/min/1.73 m2 (patients with less muscle mass per kg body weight) and 110 mL/min/1.73 m2 (patients with more muscle mass per kg body weight) as determined by the CKD-EPI equation. Assessment of eGFR is not appropriate when creatinine concentrations are rapidly changing. For clinical decisions where creatinine clearance will affect therapy, a 24-hour urine creatinine clearance may be advised. Assignment of CKD stage 1 - 5 for patients with an eGFR near the transition point between stages may be based on clinical assessment of muscle mass and symptoms in addition to eGFR. Blood 02/18/2021 8:13 PM EDT 02/18/2021 8:26 PM EDT Narrative Resulting Agency Comment Spec In Lab Alex Carrillo MD CHEMISTRY ORDERABLE S [facility] [place] [address] * (ABNORMAL) BLOOD GAS 2 VENOUS (02/18/2021 8:09 PM EDT) pH, Venous 7.45(H) 7.32 - 7.42 [facility] PCO2, Venous 46 41 - 51 mmHg [facility] PO2, Venous 38 25 - 40 mmHg [facility] Bicarbonate, Venous 30.9 mmol/L [facility] Base Excess, Venous 6.8 mmol/L [facility] Hgb Blood Gas 12.3(L) 13.7 - 16.5 gm/dL [facility] Oxyhemoglobin, Venous 70.9 % [facility] Carboxyhemoglob in, Venous 2.2 % [facility] Comment: Nonsmokers: 0.5-1.5% COHB Smokers: Variable, but usually less than 10% Toxic: 20-30% COHB Lethal: Greater than 60% COHB Methemoglobin, Venous 0.7 <=1.5 % [facility] Na Whole Blood 136 135 - 145 mmol/L [facility] K Whole Blood 3.2(L) 3.5 - 5.0 mmol/L [facility] Comment: Please note: Patients with WBC >100,000 may have falsely elevated Potassium levels. Contact the Clinical Chemistry Laboratory if there are any questions. ICa Whole Blood 1.17 1.15 - 1.33 mmol/L [facility] Comment: Note: ??Total bilirubin higher than 20 mg/dL may lead to falsely low ionized calcium. CL Whole Blood 103 98 - 107 mmol/L [facility] Gluc Whole Bld 84 65 - 199 mg/dL [facility] Comment:Diabetes: >=200 mg/d L plus symptoms Lactate WB 1.0 0.5 - 2.2 mmol/L [facility] Blood Gas Source Venous [facility] Blood 02/18/2021 8:09 PM EDT 02/18/2021 8:[address] Peggy Hein MD POINT OF CARE TEST O RDERABLES [facility] [place] [address] * XR Chest AP and Pelvis AP Trauma (Generic) (02/18/2021 8:07 PM EDT) Anatomical Region Laterality Modality N/A Digital Radiogra phy Impressions 02/18/2021 8:40 PM EDT Chest: 1. ??Possible mild pulmonary vascular congestion. 2. ??No focal consolidation, pneumothorax or pleural effusions. Pelvis: 1. ??No acute fracture or traumatic malalignment of the pelvis or proximal femurs. Thank you for letting us participate in the care of this patient. ??If you are a health care provider and have any questions regarding this report, please contact the number below. ??For patients who have questions please contact the health continuum of care manager that requested your imaging first. ? Electronically signed by: Corey Rivers MD, [facility] [place] [facility] ([phone]), at 02/18/2021 8:40 PM Narrative 02/18/2021 8:40 PM EDT EXAMINATION: XR CHEST AP AND PELVIS AP TRAUMA (GENERIC) CLINICAL HISTORY: fall from standing TECHNIQUE: AP radiograph of the chest. AP radiograph of the pelvis. COMPARISON: Chest radiograph 02/18/2021 and 12/03/2020 and 08/26/2020. CT of the abdomen and pelvis 12/03/2020 FINDINGS: Chest: Pulmonary vascular markings are mildly prominent and indistinct which may represent mild congestion. No focal consolidation. No pneumothorax. No pleural effusions. Unchanged size of the cardiomediastinal silhouette allowing for differences in magnification with portable technique. Specifically the appearance of the mediastinum is unchanged compared to 08/26/2020 portable chest x-ray. No cardiomegaly. The bilateral hilar are within normal limits for size. No acute osseous findings in the thorax. Pelvis: Mckeon catheter projects over the expected location of the bladder. There are radiopaque beads/rods within the prostate. There is diffuse vascular calcification. Normal alignment of the bilateral hips on this single AP view. No widening of the sacroiliac joints or pubic symphysis. No acute fracture of the pelvis or proximal femurs. Visualized sacrum is unremarkable. Portions of the inferior sacrum is obscured by fecal material and bowel gas. There is bilateral facet arthropathy in the lumbar spine. Moderate quantity of stool throughout the colon. Procedure Note Corey Rivers MD - 02/18/2021 EXAMINATION: XR CHEST AP AND PELVIS AP TRAUMA (GENERIC) CLINICAL HISTORY: fall from standing TECHNIQUE: AP radiograph of the chest. AP radiograph of the pelvis. COMPARISON: Chest radiograph 02/18/2021 and 12/03/2020 and 08/26/2020. CT of the abdomen and pelvis 12/03/2020 FINDINGS: Chest: Pulmonary vascular markings are mildly prominent and indistinct whichmay represent mild congestion. No focal consolidation. No pneumothorax. Nopleural effusions. Unchanged size of the cardiomediastinal silhouette allowingfor differences in magnification with portable technique. Specifically the appearance of the mediastinum is unchanged compared to 08/26/2020 portablechest x-ray. No cardiomegaly. The bilateral hilar are within normal limits forsize. No acute osseous findings in the thorax. Pelvis: Mckeon catheter projects over the expected location of the bladder. Thereare radiopaque beads/rods within the prostate. There is diffuse vascular calcification. Normal alignment of the bilateral hips on this single APview. No widening of the sacroiliac joints or pubic symphysis. No acute fracture ofthe pelvis or proximal femurs. Visualized sacrum is unremarkable. Portions ofthe inferior sacrum is obscured by fecal material and bowel gas. There isbilateral facet arthropathy in the lumbar spine. Moderate quantity of stoolthroughout the colon. IMPRESSION Chest: 1. Possible mild pulmonary vascular congestion. 2. No focal consolidation, pneumothorax or pleural effusions. Pelvis: 1. No acute fracture or traumatic malalignment of the pelvis orproximal femurs. Thank you for letting us participate in the care of this patient. If youare a health care provider and have any questions regarding this report,please contact the number below. For patients who have questions please contactthe health continuum of care manager that requested your imaging first. Electronically signed by: Corey Rivers MD, [facility] [place] [facility]([phone]), at 02/18/2021 8:40 PM Alex Carrillo MD IMG DX ORDERABLES * Film Library- Storage Only DX Upper Extremity (02/18/2021 4:57 PM EDT) Narrative [facility] - 02/18/2021 4:57 PM EDT This exam is auto-finalizing. It's purpose is for storage only. Eduard Luu MD [facility]M LIBRARY ORD ERABLES Performing Organization Address [facility] de Phone Number [place], [place] * Film Library- Storage Only DX Chest (02/18/2021 4:56 PM EDT) Narrative [facility] - 02/18/2021 4:56 PM EDT This exam is auto-finalizing. It's purpose is for storage only. Eduard Luu MD [facility]M LIBRARY ORD ERABLES Performing Organization Address [facility] de Phone Number [place], [place] * Film Library- Storage Only CT Head And Spine (02/18/2021 4:55 PM EDT) Narrative [facility] - 02/18/2021 4:55 PM EDT This exam is auto-finalizing. It's purpose is for storage only. Eduard Luu MD [facility] FILM LIBRARY ORD ERABLES Performing Organization Address [facility] de Phone Number [place], [place] documented in this encounter Visit Diagnoses Diagnosis Trauma Injury, other and unspecified, unspecified site Syncope, unspecified syncope type Intracranial bleed Unspecified intracranial hemorrhage Bilateral leg edema Edema Severe protein-calorie malnutrition Other severe protein-calorie malnutrition Trauma Injury, other and unspecified, unspecified site Severe protein-calorie malnutrition Other severe protein-calorie malnutrition Intracranial bleed Unspecified intracranial hemorrhage documented in this encounter Admitting Diagnoses Diagnosis Trauma Injury, other and unspecified, unspecified site documented in this encounter Administered Medications Inactive Administered Medications - up to 3 most recent administrations Medication Order MAR Action Action Date Dose Rate Site acetaminophen (Tylenol) tablet 975 mg 975 mg, Oral, EVERY 6 HOURS SCHEDULED, First dose on Wed02/19/21 at 0000, Until Discontinued, Maximum dose of acetaminophen is 4000 mg from all sources in 24 hours. When ordered for pain, acetaminophen should be given even when other ordered pain medications are indicated., Routine Given 02/22/2021 6:52 PM EDT 975 mg Given 02/20/2021 1:30 PM EDT 975 mg atorvastatin (Lipitor) tablet 80 mg 80 mg, Oral, EVERY EVENING, First dose on Wed02/18/21 at 2314, Until Discontinued, Routine Given 02/25/2021 5:11 PM EDT 80 mg Given 02/24/2021 4:58 PM EDT 80 mg Given 02/23/2021 4:41 PM EDT 80 mg barium sulfate (E-Z Disk) tablet 700 mg 700 mg, Oral, ONCE, 1 dose, On Wed02/20/21 at 1200, Routine Given 02/20/2021 12:00 PM EDT 750 mg barium sulfate (VARIBAR PUDDING) oral paste 0.32 g 0.32 g (rounded from 0.3 g = 300 mg), Oral, ONCE PRN, 1 dose, Starting on Wed02/20/21 at 1131, Until Wed02/20/21 at 1135, Per Protocol, Routine Given 02/20/2021 11:35 AM EDT 0.32 g barium sulfate (Varibar Thin Liquid) oral powder 350 mL 350 mL, Oral, ONCE, 1 dose, On Wed02/20/21 at 1230, Routine Given 02/20/2021 12:30 PM EDT 50 mLs buPROPion (Wellbutrin) tablet 75 mg 75 mg, Oral, DAILY, First dose on Wed02/19/21 at 1830, Until Discontinued, Routine Given 02/21/2021 8:48 AM EDT 75 mg Given 02/20/2021 8:36 AM EDT 75 mg Given 02/19/2021 8:28 PM EDT 75 mg buPROPion (Wellbutrin) tablet 75 mg 75 mg, Oral, EVERY EVENING, First dose (after last modification) on 02/22/21 at 1700, Until Discontinued, Routine Given 02/25/2021 5:11 PM EDT 75 mg Given 02/24/2021 4:58 PM EDT 75 mg Given 02/23/2021 4:41 PM EDT 75 mg cefTRIAXone (Rocephin) 1 g vial attach to sodium chloride 0.9% 50 mL Mini-Bag Plus 1 g, Intravenous, EVERY 24 HOURS, 7 doses, First dose on Wed02/20/21 at 1400, Last dose on Wed02/26/21 at 1400, Administer over 30 Minutes, Indication for (Active or Suspected): Urinary Tract/Pyelonephritis New Bag 02/25/2021 2:26 PM EDT 1 g 100 mL/hr New Bag 02/24/2021 2:13 PM EDT 1 g 100 mL/hr New Bag 02/23/2021 2:01 PM EDT 1 g 100 mL/hr enoxaparin (Lovenox) (40 mg/0.4 mL) subcutaneous injection 40 mg 40 mg, Subcutaneous, NIGHTLY, First dose (after last modification) on Wed02/24/21 at 2100, Until Discontinued, Routine Given 02/25/2021 8:03 PM EDT 40 mg Given 02/24/2021 9:28 PM EDT 40 mg famotidine (Pepcid) (10 mg/mL) injection 20 mg 20 mg, Intravenous, 2 TIMES DAILY, First dose on Wed02/18/21 at 2313, Until Discontinued, Routine Given 02/19/2021 8:28 PM EDT 20 mg famotidine (Pepcid) tablet 20 mg 20 mg, Oral, 2 TIMES DAILY, First dose on Wed02/18/21 at 2313, Until Discontinued, If unable to take PO, may give IV, Routine Given 02/20/2021 8:36 AM EDT 20 mg Given 02/19/2021 9:01 AM EDT 20 mg lacosamide (Vimpat) tablet Tab 150 mg 150 mg, Oral, 2 TIMES DAILY, First dose on Wed02/18/21 at 2202, Until Discontinued, Tablets may be split or crushed., Routine Given 02/21/2021 8:47 AM EDT 15 0 mg Given 02/20/2021 9:08 PM EDT 150 mg Given 02/20/2021 8:36 AM EDT 150 mg lacosamide (Vimpat) tablet Tab 200 mg 200 mg, Oral, 2 TIMES DAILY, First dose (after last modification) on Wed02/21/21 at 2100, Until Discontinued, Tablets may be split or crushed., Routine Given 02/26/2021 8:24 AM EDT 200 mg Given 02/25/2021 8:04 PM EDT 200 mg Given 02/25/2021 8:31 AM EDT 200 mg lactated ringers infusion 100 mL/hr, Intravenous, CONTINUOUS, Starting on Wed02/18/21 at 2316, Until Wed02/20/21 at 0616 New Bag 02/20/2021 5:33 AM EDT 100 mL/hr 100 mL/hr New Bag 02/19/2021 7:27 PM EDT 100 mL/hr 100 mL/hr New Bag 02/19/2021 12:28 AM EDT 100 mL/hr 100 mL/hr lactobacillus with pectin capsule 1 capsule 1 capsule, Oral, DAILY, First dose on Wed02/21/21 at 0900, Until Discontinued, Routine Given 02/26/2021 8:25 AM EDT 1 capsule Given 02/25/2021 8:30 AM EDT 1 capsule Given 02/24/2021 8:24 AM EDT 1 capsule lidocaine (Xylocaine) 1% (10 mg/mL) injection 3 mg 3 mg (0.3 mL), Subcutaneous, ONCE PRN, 1 dose, Starting on Wed02/19/21 at 0011, Until Wed02/26/21 at 1657, for discomfort with PIV insertion, Recovery (Recovery-Hospital Unit), Routine naloxone (Narcan) (0.4 mg/mL) injection 0.2 mg 0.2 mg, Intravenous, EVERY 1 MIN PRN, Starting on Wed02/19/21 at 0011, Until Wed02/26/21 at 1657, Opioid Reversal, If respiratory rate less than 6 OR the patient is unable to arouse OR SpO2 is declining, Give for respiratory rate of less than or equal to 6 and patient is heavily sedated or unarousable. May repeat every 60 seconds to increase respiratory rate. DO NOT exceed 2 mg total dose., Recovery (Recovery-Hospital Unit), Routine polyethylene glycoL (Miralax) packet 17 g 17 g, Oral, 2 TIMES DAILY, First dose on Wed02/20/21 at 1345, Until Discontinued, Routine Given 02/20/2021 9:08 PM EDT 17 g polyethylene glycoL (Miralax) packet 17 g 17 g, Oral, DAILY PRN, Starting on Wed02/25/21 at 0745, Until Wed02/26/21 at 1657, Constipation, Routine senna-docusate (Pericolace) 8.6-50 mg per tablet 1 tablet 1 tablet, Oral, 2 TIMES DAILY, First dose on Wed02/20/21 at 1345, Until Discontinued, Routine Given 02/26/2021 8:24 AM EDT 1 tablet Given 02/21/2021 8:48 AM EDT 1 tablet Given 02/20/2021 9:08 PM EDT 1 tablet sodium chloride 0.9 % (flush) flush 5 mL 5 mL, Intravenous, 2 TIMES DAILY, First dose on Wed02/19/21 at 0100, Until Discontinued, Recovery (Recovery-Hospital Unit), Routine Given 02/26/2021 8:25 AM EDT 5 mLs Given 02/25/2021 8:19 PM EDT 5 mLs Given 02/25/2021 8:31 AM EDT 5 mLs sodium chloride 0.9 % (flush) flush 5-20 mL 5-20 mL, Intravenous, EVERY 1 MIN PRN, Starting on Wed02/19/21 at 0011, Until Wed02/26/21 at 1657, flush, Flush pertains to all indwelling lines. Flush per protocol found in the job aid using the link provided on this medication record., Recovery (Recovery-Hospital Unit), Routine tamsulosin (Flomax) capsule 0.4 mg 0.4 mg, Oral, DAILY, First dose on Wed02/19/21 at 0900, Until Discontinued, DO NOT CRUSH OR OPEN, Routine Given 02/25/2021 8:03 PM EDT 0.4 mg Given 02/24/2021 8:10 PM EDT 0.4 mg Given 02/23/2021 8:38 PM EDT 0.4 mg vancomycin (Firvanq) (50 mg/mL) oral liquid 125 mg 125 mg, Oral, 2 TIMES DAILY, 21 doses, First dose on Wed02/25/21 at 0930, Last dose on Wed03/07/21 at 0900, Routine Given 02/26/2021 8:24 AM EDT 125 mg Given 02/25/2021 8:04 PM EDT 125 mg Given 02/25/2021 9:35 AM EDT 125 mg vancomycin (Vancocin) capsule 125 mg 125 mg, Oral, 2 TIMES DAILY, 28 doses, First dose on Wed02/21/21 at 2100, Last dose on Wed03/07/21 at 0900, Routine Given 02/24/2021 8:10 PM EDT 125 mg Given 02/24/2021 8:24 AM EDT 125 mg Given 02/23/2021 8:38 PM EDT 125 mg documented in this encounter Active and Recently Administered Medications Times are shown in EDT. Scheduled Medication Order 02/24/2021 02/25/2021 02/26/2021 acetaminophen (Tylenol) tablet 975 mg 975 mg, Oral, EVERY 6 HOURS SCHEDULED, First dose on Wed02/19/21 at 0000, Until Discontinued, Maximum dose of acetaminophen is 4000 mg from all sources in 24 hours. When ordered for pain, acetaminophen should be given even when other ordered pain medications are indicated., Routine 0000 (Not Given - Provider: Donal Vargas RN - Reason: Patient/family refused)0600 (Not Given - Provider: Donal Vargas RN - Reason: Patient/family refused - Comment: rates pain 0/10)1200 (Not Given - Provider: Leigh Flowers LPN - Reason: Patient/family refused)1754 (Not Given - Provider: Vlad Whatley RN - Reason: Patient/family refused) 0000 (Not Given - Provider: Donal Vargas RN - Reason: Patient/family refused)0600 (Not Given - Provider: Donal Vargas RN - Reason: Patient/family refused)1200 (Not Given - Provider: Lela Mckee RN - Reason: Patient/family refused)1800 (Not Given - Provider: Teresa Cottrell LPN - Reason: Patient/family refused) 0000 (Not Given - Provider: Vlad Whatley RN - Reason: Patient/family refused)0600 (Not Given - Provider: Vlad Whatley RN - Reason: Patient/family refused)1200 (Not Given - Provider: Teresa Cottrell LPN - Reason: Patient/family refused - Comment: Patient declines to take tylenol, does not want) atorvastatin (Lipitor) tablet 80 mg 80 mg, Oral, EVERY EVENING, First dose on Wed02/18/21 at 2314, Until Discontinued, Routine 1658 (Given - Provider: Vlad Whatley RN) 171 (Given - Provider: Teresa Cottrell LPN) buPROPion (Wellbutrin) tablet 75 mg 75 mg, Oral, EVERY EVENING, First dose (after last modification) on Wed02/22/21 at 1700, Until Discontinued, Routine 165 (Given - Provider: Vlad Whatley RN) 171 (Given - Provider: Teresa Cottrell LPN) cefTRIAXone (Rocephin) 1 g vial attach to sodium chloride 0.9% 50 mL Mini-Bag Plus 1 g, Intravenous, EVERY 24 HOURS, 7 doses, First dose on Brisa 02/20/21 at 1400, Last dose on Wed02/26/21 at 1400, Administer over 30 Minutes, Indication for (Active or Suspected): Urinary Tract/Pyelonephritis 1413 (New Bag - Provider: Vlad Whatley RN)1443 (Stopped - Provider: Vlad Whatley RN) 1426 (New Bag - Provider: Lela Mckee RN)1456 (Stopped - Provider: Lela Mckee RN) 1400 (Due) enoxaparin (Lovenox) (40 mg/0.4 mL) subcutaneous injection 40 mg 40 mg, Subcutaneous, NIGHTLY, First dose (after last modification) on Wed02/24/21 at 2100, Until Discontinued, Routine 2127 (Given - Provider: Donal Vargas RN) 2002 (Given - Provider: Vlad Whatley RN) lacosamide (Vimpat) tablet Tab 200 mg 200 mg, Oral, 2 TIMES DAILY, First dose (after last modification) on Wed02/21/21 at 2100, Until Discontinued, Tablets may be split or crushed., Routine 823 (Given - Provider: Vlad Whatley RN)2008 (Given - Provider: Donal Vargas, MAYA) 08 (Given - Provider: Lela Mckee, MAYA)2003 (Given - Provider: Vlad Whatley RN) 0824 (Given - Provider: Yuliya Owens RN) lactobacillus with pectin capsule 1 capsule 1 capsule, Oral, DAILY, First dose on Wed02/21/21 at 0900, Until Discontinued, Routine 08 (Given - Provider: Vlad Whatley RN) 0830 (Given - Provider: Lela Mckee RN) 0825 (Given - Provider: Yuliya Owens, MAYA) senna-docusate (Pericolace) 8.6-50 mg per tablet 1 tablet 1 tablet, Oral, 2 TIMES DAILY, First dose on Wed02/20/21 at 1345, Until Discontinued, Routine 0833 (Not Given - Provider: Vlad Whatley RN - Reason: Patient/family refused)2099 (Not Given - Provider: Donal Vargas RN - Reason: Patient/family refused - Comment: pnt had bm tonight) 09 (Not Given - Provider: Lela Mckee RN - Reason: Order parameters not met)2019 (Not Given - Provider: Vlad Whatley RN - Reason: Patient/family refused) 0824 (Given - Provider: Yuliya Owens RN) sodium chloride 0.9 % (flush) flush 5 mL 5 mL, Intravenous, 2 TIMES DAILY, First dose on Wed02/19/21 at 0100, Until Discontinued, Recovery (Recovery-Hospital Unit), Routine 0834 (Given - Provider: Vlad Whatley RN)2023 (Given - Provider: Donal Vargas, MAYA) 08 (Given - Provider: Lela Mckee, MAYA)2018 (Given - Provider: Vlad Whatley RN) 0825 (Given - Provider: Yuliya Owens RN) tamsulosin (Flomax) capsule 0.4 mg 0.4 mg, Oral, DAILY, First dose on Wed02/19/21 at 0900, Until Discontinued, DO NOT CRUSH OR OPEN, Routine 2009 (Given - Provider: Donal Vargas RN) 2002 (Given - Provider: Vlad Whatley, MAYA) vancomycin (Firvanq) (50 mg/mL) oral liquid 125 mg 125 mg, Oral, 2 TIMES DAILY, 21 doses, First dose on Wed02/25/21 at 0930, Last dose on Wed03/07/21 at 0900, Routine 0935 (Given - Provider: Lela Mckee, MAYA)2003 (Given - Provider: Vlad Whatley RN) 0824 (Given - Provider: Yuliya Owens RN) vancomycin (Vancocin) capsule 125 mg (CANCELED) 125 mg, Oral, 2 TIMES DAILY, 28 doses, First dose on Wed02/21/21 at 2100, Last dose on Wed03/07/21 at 0900, Routine 0824 (Given - Provider: Vlad Whatley, MAYA)2009 (Given - Provider: Donal Vargas RN) 0830 (Not Given - Provider: Lela Mckee RN - Reason: See comment - Comment: pharmacy is switching to oral liquid as pt has trouble swallowing capsules) PRN Medication Order 02/24/2021 02/25/2021 02/26/2021 lidocaine (Xylocaine) 1% (10 mg/mL) injection 3 mg 3 mg (0.3 mL), Subcutaneous, ONCE PRN, 1 dose, Starting on Wed02/19/21 at 0011, Until Wed02/26/21 at 1656, for discomfort with PIV insertion, Recovery (Recovery-Hospital Unit), Routine naloxone (Narcan) (0.4 mg/mL) injection 0.2 mg 0.2 mg, Intravenous, EVERY 1 MIN PRN, Starting on Wed02/19/21 at 0011, Until Wed02/26/21 at 1656, Opioid Reversal, If respiratory rate less than 6 OR the patient is unable to arouse OR SpO2 is declining, Give for respiratory rate of less than or equal to 6 and patient is heavily sedated or unarousable. May repeat every 60 seconds to increase respiratory rate. DO NOT exceed 2 mg total dose., Recovery (Recovery-Hospital Unit), Routine polyethylene glycoL (Miralax) packet 17 g 17 g, Oral, DAILY PRN, Starting on Wed02/25/21 at 0745, Until Wed02/26/21 at 1656, Constipation, Routine sodium chloride 0.9 % (flush) flush 5-20 mL 5-20 mL, Intravenous, EVERY 1 MIN PRN, Starting on Wed02/19/21 at 0011, Until Wed02/26/21 at 1656, flush, Flush pertains to all indwelling lines. Flush per protocol found in the job aid using the link provided on this medication record., Recovery (Recovery-Hospital Unit), Routine documented in this encounter Care Teams Secure Software Assessor Relationship Specialty Start Date End Date Alfredo Montoya DO [address] [place] [id number] PCP - General Internal Medicine 12/04/19 04/27/23 documented as of this encounter
--- OUTSIDE RECORDS SUMMARY | 2024-05-24 19:29 | XMS_ITS | Encounter Summary ---
Author Organization [facility] [place] [address] Care Team Providers Care Cpr Ambulance Driver Name Role Phone Alfredo Montoya DO Primary Care Provider [phone] Encounter Details Date Type Department Care Team (Late st Contact Info) Description 10/04/2020 Telephone Radiation Oncology at [address] [phone] Noelle Ramirez RN Social History Tobacco Use Types Packs/Day [...] encounter Miscellaneous Notes * Telephone Encounter - Noelle Ramirez RN - 10/04/2020 3:34 PM EST Radiation Oncology Nurse Telephone Note [facility] [place], [place] Follow-up telephone call to patient to check on him. See 10/02/20 note 10/04/20 3:32 PM Patient reports that the urine sample he gave home health 2 days ago was very dark. Today it is better, maybe a slight pink to urine. He remains afebrile with no pain. He has not heard any report on the UA results. They have called the PCP's office today and are waiting for that call. Plan: he was instructed to call PCP's office if they don't hear back from them soon. Patient verbalized understanding of these instructions. documented in this encounter Plan of Treatment Upcoming Encounters Date Type Department Care Team (Late st Contact Info) Description 11/09/2024 10:30 AM EDT Office Visit Radiation Oncology at [address] [phone] Taya De La Vega PA [facility] DR [place] [address] 11/13/2024 2:00 PM EDT Office Visit Hematology/Oncology at [address] [phone] Kirt Kennedy MD [facility] DR [place] [address] Alem Lazaro APRN [address] [place] [address] DR HEMATOLOGY AND ONCOLOGY [place], [place] [phone] documented as of this encounter Visit Diagnoses Not on filedocumented in this encounter Care Teams Cpr Ambulance Driver Relationship Specialty Start Date End Date Alfredo Montoya DO [address] [place] [id number] PCP - General Internal Medicine 12/04/19 04/27/23 documented as of this encounter
--- OUTSIDE RECORDS SUMMARY | 2024-05-24 19:29 | XMS_ITS | Encounter Summary ---
Author Organization [facility] Address [facility] [place] [address] Care Team Providers Care Group Account Director Name Role Phone Alfredo Montoya DO Primary Care Provider [phone]- [phone] Encounter Details Date Type Department Care Team (Late st Contact Info) Description 01/22/2021 Ancillary Procedure Radiology Library at [facility] [place] [address] Silvia Zapata APRN [facility] [place] [address] Social History Tobacco Use Types Packs/Day Years [...] AM EDT Office Visit Radiation Oncology at [address] [phone] Taya De La Vega PA [facility] HEMATOLOGY [place] [address] 11/13/2024 2:00 PM EDT Office Visit Hematology/Oncology at [address] [phone] Kirt Kennedy MD [facility] DR HEMATOLOGY [place] [address] Alem Lazaro APRN [address] [place] [address] [place] [address] documented as of this encounter Procedures Procedure Name Priority Date/Time Associated Diagnosis Comments FILM LIBRARY STORAGE ONLY CT HEAD Routine 01/22/2021 12:00 AM EDT documented in this encounter Results * Film Library- Storage Only CT Head (01/22/2021 12:00 AM EDT) Narrative [facility] - 05/08/2021 10:52 PM EDT This exam is auto-finalizing. It's purpose is for storage only. Silvia Zapata APRN IMG FILM LIBRARY ORDERABLES Performing Organization Address City/State/[facility] Co de Phone Number [place], [place] documented in this encounter Visit Diagnoses Not on filedocumented in this encounter Care Teams Group Account Director Relationship Specialty Start Date End Date Alfredo Montoya DO [address] [place] [address] PCP - General Internal Medicine 12/04/19 04/27/23 documented as of this encounter
--- OUTSIDE RECORDS SUMMARY | 2024-05-24 19:29 | XMS_ITS | Encounter Summary ---
Author Organization [facility] Address [facility] [place] [address] Care Team Providers Care Merchandising Lead Name Role Phone Alrfedo Montoya DO Primary Care Provider [phone]- [phone] Reason for Visit * - Closed Specialty Diagnoses / Procedures Referred By Rogers t Referred To Contact Procedures Film Library- Storage Only CT Abdomen & Pelvis Alfredo Montoya, DO [address] [place] [address] Referral ID Status Reason Start Date Expiration Date Visits Re quested Visits Authorized [id number] Closed 12/08/2020 12/08/2021 1 1 Encounter Details Date Type Department Care Team (Late Contact Info) Description 12/03/2020 Ancillary Procedure Radiology Library [place] [address] Alfredo Montoya, DO [address] [place] [address] Social History Tobacco Use Types Packs/Day Years [...] AM EDT Office Visit Radiation Oncology at [address] [phone] Taya De La Vega PA [facility] DR [place] [address] 11/13/2024 2:00 PM EDT Office Visit Hematology/Oncology at [address] [phone] Kirt Kennedy MD [facility] DR [place] [address] Alem Lazaro APRN [address] [place] [address] DR HEMATOLOGY AND ONCOLOGY [place], [place] [phone] documented as of this encounter Procedures Procedure Name Priority Date/Time Associated Diagnosis Comments FILM LIBRARY STORAGE ONLY CT ABDOMEN AND PELVIS Routine 12/03/2020 12:00 AM EDT documented in this encounter Results * Film Library- Storage Only CT Abdomen & Pelvis (12/03/2020 12:00 AM EDT) Narrative [facility] - 12/08/2020 12:24 PM EDT This exam is auto-finalizing. It's purpose is for storage only. Alfredo Montoya DO [facility] FILM LIBRARY OR DERABLES Performing Organization Address City/State/[facility] Co de Phone Number [place], [place] documented in this encounter Visit Diagnoses Not on filedocumented in this encounter Care Teams Merchandising Lead Relationship Specialty Start Date End Date Alfredo Montoya DO [address] [place] [address] PCP - General Internal Medicine 12/04/19 04/27/23 documented as of this encounter
--- OUTSIDE RECORDS SUMMARY | 2024-05-24 19:29 | XMS_ITS | Encounter Summary ---
Author Organization [facility] Address [facility] [place] [address] Care Team Providers Care Software Security Consultant Name Role Phone Alfredo Montoya DO Primary Care Provider Encounter Details Date Type Department Care Team (Late st Contact Info) Description 09/01/2020 Ancillary Procedure Radiology Library at [facility] [address] Alfredo Montoya DO [address] [place] [address] Social History Tobacco Use Types Packs/Day Years [...] AM EDT Office Visit Radiation Oncology at [address] [phone] Taya De La Vega PA [facility] HEMATOLOGY [place] [address] 11/13/2024 2:00 PM EDT Office Visit Hematology/Oncology at [address] [phone] Kirt Kennedy MD [facility] DR HEMATOLOGY [place] [address] Alem Lazaro, CHOLO [address] [place] [address] DR [place] [address] documented as of this encounter Procedures Procedure Name Priority Date/Time Associated Diagnosis Comments FILM LIBRARY STORAGE ONLY CT HEAD Routine 09/01/2020 12:00 AM EST documented in this encounter Results * Film Library- Storage Only CT Head (09/01/2020 12:00 AM EST) Narrative [facility] - 10/05/2020 4:54 AM EST This exam is auto-finalizing. It's purpose is for storage only. Alfredo Montoya DO IMG FILM LIBRARY OR DERABLES Performing Organization Address City/State/[facility] Co de Phone Number [place], [place] documented in this encounter Visit Diagnoses Not on filedocumented in this encounter Care Teams Software Security Consultant Relationship Specialty Start Date End Date Alfredo Montoya DO [address] [place] [address] PCP - General Internal Medicine 12/04/19 04/27/23 documented as of this encounter
--- OUTSIDE RECORDS SUMMARY | 2024-05-24 19:29 | XMS_ITS | Encounter Summary ---
Author Organization [facility] Address [facility] [place] [address] Care Team Providers Care Osteopathy Doctor Name Role Phone Alfredo Montoya DO Primary Care Provider [phone] Encounter Details Date Type Department Care Team (Late st Contact Info) Description 01/05/2021 Telephone Neurology at [facility] [place] [phone] Martin Daniel [place] [address] Social History Tobacco Use Types Packs/Day Years [...] encounter Miscellaneous Notes * Telephone Encounter - Martin Daniel MD - 01/05/2021 12:28 PM EDT Images from the original note were not included. Call from [facility] 75 Y M with subdural, h/o aneurysm s/p embolization, prior stroke and 3 seizures today Had seizures since intervention and was on Depakote. Was switched to Lacosamide in November Today had 10 min GTCS followed by 2 2 minute seizure. Was given 10 mg ativan IM. Now awake and able to speak. 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 He is being managed through [facility] Discussed that he may need admission/ observation. Due to lack of beds here the physician will contact [facility] where he gets his Neurologic care. Martin Daniel MD Department of Neurology Pager # [phone] documented in this encounter Plan of Treatment Upcoming Encounters Date Type Department Care Team (Late st Contact Info) Description 11/09/2024 10:30 AM EDT Office Visit Radiation Oncology at [address] [phone] Taya De La Vega PA [facility] DR [place] [address] 11/13/2024 2:00 PM EDT Office Visit Hematology/Oncology at [address] [phone] Kirt Kennedy MD [facility] DR [place] [address] Alem Lazaro APRN [address] [place] [address] DR HEMATOLOGY AND ONCOLOGY [place], [place] [phone] documented as of this encounter Visit Diagnoses Not on filedocumented in this encounter Care Teams Osteopathy Doctor Relationship Specialty Start Date End Date Alfredo Montoya DO [address] [place] [address] PCP - General Internal Medicine 12/04/19 04/27/23 documented as of this encounter
--- OUTSIDE RECORDS SUMMARY | 2024-05-24 19:29 | XMS_ITS | Encounter Summary ---
Author Organization [facility] Address [facility] [place] [address] Care Team Providers Care Director Information Name Role Phone Alfredo Montoya DO Primary Care Provider [phone]- [phone] Reason for Visit * - Closed Specialty Diagnoses / Procedures Referred By Contaryan t Referred To Contact Procedures Film Library- Storage Only DX Chest Alfredo Montoya DO [address] [place] [address] Referral ID Status Reason Start Date Expiration Date Visits Re quested Visits Authorized [id number] Closed 01/05/2021 01/05/2022 1 1 Encounter Details Date Type Department Care Team (Late st Contact Info) Description 01/05/2021 12:30 PM EDT Ancillary Procedure Radiology Library at [facility] [place] [address] Alfredo Montoya DO [address] [place] [address] Social History Tobacco Use Types Packs/Day Years [...] AM EDT Office Visit Radiation Oncology at [address] [phone] Taya De La Vega PA [facility] [place] [address] 11/13/2024 2:00 PM EDT Office Visit Hematology/Oncology at [address] [phone] Kirt Kennedy MD [facility] [place] [address] Alem Lazaro APRN [address] [place] [address] DR HEMATOLOGY AND ONCOLOGY [place], [place] [phone] documented as of this encounter Procedures Procedure Name Priority Date/Time Associated Diagnosis Comments FILM LIBRARY STORAGE ONLY DX CHEST Routine 01/05/2021 12:24 PM EDT documented in this encounter Results * Film Library- Storage Only DX Chest (01/05/2021 12:24 PM EDT) Narrative [facility] - 01/05/2021 12:24 PM EDT This exam is auto-finalizing. It's purpose is for storage only. Alfredo Montoya DO G FILM LIBRARY OR DERABLES Performing Organization Address City/State/[facility] Co de Phone Number [place], [place] documented in this encounter Visit Diagnoses Not on filedocumented in this encounter Care Teams Director Information Relationship Specialty Start Date End Date Alfredo Montoya DO [address] [place] [address] PCP - General Internal Medicine 12/04/19 04/27/23 documented as of this encounter
--- OUTSIDE RECORDS SUMMARY | 2024-05-24 19:29 | XMS_ITS | Encounter Summary ---
Author Organization [facility] Address [facility] [place] [address] Care Team Providers Care Manager Process Name Role Phone Alfredo Montoya DO Primary Care Provider [phone]- [phone] Encounter Details Date Type Department Care Team (Late Contact Info) Description 02/18/2021 5:00 PM EDT Ancillary Procedure Radiology Library at [facility] [place] [phone] Social History Tobacco Use Types Packs/Day Years [...] AM EDT Office Visit Radiation Oncology at [address] [phone] Taya De La Vega PA [facility] HEMATOLOGY AND ONCOLOGY [place] [address] 11/13/2024 2:00 PM EDT Office Visit Hematology/Oncology at [address] [phone] Kirt Kennedy MD [facility] HEMATOLOGY AND ONCOLOGY [place] [address] Alem Lazaro APRN [address] [place] [address] DR [place] [address] documented as of this encounter Procedures Procedure Name Priority Date/Time Associated Diagnosis Comments FILM LIBRARY STORAGE ONLY CT HEAD AND SPINE STAT 02/18/2021 4:55 PM EDT documented in this encounter Results * Film Library- Storage Only CT Head And Spine (02/18/2021 4:55 PM EDT) Narrative [facility] - 02/18/2021 4:55 PM EDT This exam is auto-finalizing. It's purpose is for storage only. Eduard Luu MD IMG FILM LIBRARY ORD ERABLES [place], [place] documented in this encounter Visit Diagnoses Not on filedocumented in this encounter Care Teams Manager Process Relationship Specialty Start Date End Date Alfredo Montoya DO [address] [place] [address] PCP - General Internal Medicine 12/04/19 04/27/23 documented as of this encounter
--- OUTSIDE RECORDS SUMMARY | 2024-05-24 19:29 | XMS_ITS | Encounter Summary ---
Author Organization [facility] Address [facility] [place] [address] Care Team Providers Care Synchronous Motor Assembler Name Role Phone Alfredo Montoya DO Primary Care Provider [phone]- [phone] Reason for Visit * - Closed Specialty Diagnoses / Procedures Referred By Contaryan t Referred To Contact Procedures Film Library- Storage Only DX Chest Alfredo Montoya DO [address] [place] [address] Referral ID Status Reason Start Date Expiration Date Visits Re quested Visits Authorized [id number] Closed 12/08/2020 12/08/2021 1 1 Encounter Details Date Type Department Care Team (Late st Contact Info) Description 12/03/2020 12:05 AM EDT Ancillary Procedure Radiology Library [place] [facility] [place] [phone] Alfredo Montoya DO [address] [place] [address] Social History Tobacco Use Types [...] AM EDT Office Visit Radiation Oncology at [address] [phone] Taya De La Vega PA [facility] [place] [address] 11/13/2024 2:00 PM EDT Office Visit Hematology/Oncology at [address] [phone] Kirt Kennedy MD [facility] [place] [address] Alem Lazaro APRN [address] [place] [address] DR HEMATOLOGY AND ONCOLOGY [place], [place] [phone] documented as of this encounter Procedures Procedure Name Priority Date/Time Associated Diagnosis Comments FILM LIBRARY STORAGE ONLY DX CHEST Routine 12/03/2020 12:05 AM EDT documented in this encounter Results * Film Library- Storage Only DX Chest (12/03/2020 12:05 AM EDT) Narrative [facility] - 12/08/2020 12:26 PM EDT This exam is auto-finalizing. It's purpose is for storage only. Alfredo Montoya DO IMG FILM LIBRARY OR DERABLES Performing Organization Address City/State/[facility] Co de Phone Number [place], [place] documented in this encounter Visit Diagnoses Not on filedocumented in this encounter Care Teams Synchronous Motor Assembler Relationship Specialty Start Date End Date Alfredo Montoya DO [address] [place] [address] PCP - General Internal Medicine 12/04/19 04/27/23 documented as of this encounter
--- OUTSIDE RECORDS SUMMARY | 2024-05-24 19:29 | XMS_ITS | Encounter Summary ---
Author Organization [facility] Address [facility] [place] [address] Care Team Providers Care Snack Stewardess Name Role Phone Alfredo Montoya DO Primary Care Provider [phone] Encounter Details Date Type Department Care Team (Late st Contact Info) Description 02/25/2021 [place] [address] Alem Lazar MD [facility] [place] [address] Social History Tobacco Use Types Packs/Day Years [...] Notes * Telephone Encounter - Sangeeta Pino Jorge - 02/25/2021 8:17 AM EDT Narcisa Eduardo - 02/18/21 Alem Lazar MD Sent: Tisha February 23, 2021 ??2:21 AM To: P [facility] Neurosurgery [place] ?? Message Hello and good day! Please schedule a follow up appointment as per below. If you have already received an appointment request for this patient, this request dated 02/23/21 is the most up to date and should replace the prior. 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 ID: Narcisa Eduardo, 75 y.o. male, Contact info: see epic Reason: F/u L hygroma, parafalcine SDH, tSAH Provider: Robson Gardiner or Silvia Trinh Timeframe: 2 wks Imaging: CTH wo contrast(ordered) Thank you, Alem Lazar MD 02/23/2021 2:20 AM * Telephone Encounter - Sangeeta Pino - 02/25/2021 8:17 AM EDT Patient needs f/u appointment(s): With [facility] on/around 03/10/21 2 weeks OV, s/p L Hygroma, parafalcine SDH, tSAH, CTH Prior * Telephone Encounter - Charleen Barrera - 02/25/2021 8:17 AM EDT Scheduled for discharge documented in this encounter Plan of Treatment Upcoming Encounters Date Type Department Care Team (Late st Contact Info) Description 11/09/2024 10:30 AM EDT Office Visit Radiation Oncology at [address] [phone] Taya De La Vega PA [facility] [place]AT[place]Y [place] [address] 11/13/2024 2:00 PM EDT Office Visit Hematology/Oncology at [address] [phone] Kirt Kennedy MD [facility] DR HEMATOLOGY [place] [address] Alem Lazaro APRN [address] [place] [address] DR [place] [address] documented as of this encounter Visit Diagnoses Not on filedocumented in this encounter Care Teams Snack Stewardess Relationship Specialty Start Date End Date Alfredo Montoya DO [address] [place] [address] PCP - General Internal Medicine 12/04/19 04/27/23 documented as of this encounter
--- OUTSIDE RECORDS SUMMARY | 2024-05-24 19:29 | XMS_ITS | Encounter Summary ---
Author Organization [facility] Address [facility] [place] [address] Care Team Providers Care Program Director Name Role Phone Alfredo Montoya DO Primary Care Provider [phone] Encounter Details Date Type Department Care Team (Late st Contact Info) Description 12/30/2020 3:00 PM EDT Office Visit Hematology/Oncology at [address] [phone] Kirt Kennedy MD [facility] [place] [address] Martha Card, RN Malignant neoplasm of prostate; [...] Sign Reading Time Taken Comments Blood Pressure 145/77 12/30/2020 3:14 PM EDT Pulse 63 12/30/2020 3:14 PM EDT Temperature 36.2 ??C (97.1 ??F) 12/30/2020 3:14 PM ED T Respiratory Rate 20 12/30/2020 3:14 PM EDT Oxygen Saturation 100% 12/30/2020 3:14 PM EDT Inhaled Oxygen Concentration - - Weight 62 kg (136 lb 9.6 oz) 12/30/2020 3:14 PM EDT Height 177.8 cm (5' 10) 12/30/2020 3:14 PM EDT Body Mass Index 19.6 12/30/2020 3:14 PM EDT documented in this encounter Progress Notes * Kyaw Martha Jeremy, ADOBE DEVELOPER - 12/30/2020 3:00 PM EDT HPI/Interval History/Subjective: Narcisa Eduardo is a 74 y.o. 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 The patient reports that he is still recovering his energy from his prostate cancer radiation treatments which ended 04/26/2020. He still feels fatigued from this. Local irritation and urination symptoms have subsided. He declined to receive androgen deprivation therapy as part of his treatment. He reports that he has stopped smoking and drinking. This was largely spurred by his stroke in September 2019. He does not have any residual deficits related to the stroke. He last received treatment for his lymphoma back in 2015. He does not have any residual issues related to his treatment. He has not noted any changes in terms of new or progressive adenopathy, fevers, night sweats, unintentional weight loss or frequent infections. Interval History(12/31/20)- Mr. Eduardo returns today for follow up of follicular lymphoma. He is accompanied by his . Since last seen for his lymphoma he has had a stroke in 2019 and recently completed RT for prostate cancer. Within the past month his states he was in [facility] in ICU for a UTI. No fevers or chills today. He is somewhat confused about why he is here today. Denies any night sweats, cough, difficulty swallowing today. He is complaining of abdominal discomfort. I feel like something is in there. No nausea or vomiting. He does have difficulty with constipation. 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 3/4 ppd. X30-40 years Alcohol use: Stopped drinking in 09/2019 after a stroke when he was placed on Plavix Drug use: None Loves gardening but can't do it any more. service: [employer]. [place] Era. Had Agent [place] Exposure. He is service connected for both lymphoma and agent orange. Family History: Mother- Dscd Father- Dscd. Treated [...] profound fatigue, or F/C/sweats. Treated [place] [facility] [place] by Dr. Martha Castañeda - PET-CT 11/26/15 [...] (he opted to not receive ADT) at [facility] with Dr. Evans 02/26-04/26/20 97.2 Gy in 44 fractions PMH: 1. AAA - Abdominal aortic aneurysm 2. Thoracic aortic aneurysm without rupture 3. Follicular non-Hodgkin lymphoma, small cleaved cell 4. Tobacco dependence 5. Alcohol dependence 6. Hypertension 7. Family history of prostate cancer 8. Family history of malignant neoplasm of breast 9. Personal History of Exposure to Agent [place] Patient Active Problem List Diagnosis Date Noted ??? Brain aneurysm 09/09/2020 ??? Intracranial bleed 09/02/2020 ??? Malignant neoplasm of prostate 01/05/2020 ??? Follicular lymphoma 04/03/2015 Allergies Allergen Reactions ??? Peanut Anaphylaxis ??? Contrast [Iodine And Iodide Containing Products] Hives Medications 12/30/20 1522 Medication Sig Taking? lacosamide (Vimpat) 100 mg Tablet TAKE ONE TABLET BY MOUTH TWICE A DAY FOR SEIZURES Yes tamsulosin (Flomax) 0.4 mg Capsule TAKE 1 CAPSULE BY MOUTH EVERY DAY 30 MINUTES AFTER THE SAME MEALTIME EACH DAY FOR PROSTATE/URINARY SYMPTOMS. Yes aspirin EC 81 mg Tablet, Delayed [...] Take 10 mg by mouth daily. Yes multivit with minerals/lutein (MULTIVITAMIN 50 PLUS ORAL) Take by mouth. valproate (Depakene) 250 mg/5 mL Solution TAKE ONE TABLESPOONFUL BY MOUTH EVERY TWELVE HOURS I reviewed the problem list, allergies, medications, past medical history, social history and family history within the EPIC encounter. Pertinent details are noted above. Review of Systems Constitutional: Positive for activity change. Negative for appetite change, chills, diaphoresis, fatigue, fever and unexpected weight change. Weight loss HENT: Negative for mouth sores, sinus pain and trouble swallowing. Eyes: Negative for visual disturbance. Respiratory: Negative for cough, shortness of breath, wheezing and stridor. Cardiovascular: Negative for chest pain and palpitations. Gastrointestinal: Positive for abdominal distention. Negative for constipation, nausea and vomiting. Endocrine: Negative for polydipsia and polyphagia. Genitourinary: Negative for difficulty urinating, dysuria and hematuria. Musculoskeletal: Negative for arthralgias, joint swelling and myalgias. Skin: Negative for color change, rash and wound. Neurological: Negative for dizziness, seizures and headaches. Hematological: Negative for adenopathy. Does not bruise/bleed easily. Psychiatric/Behavioral: Positive for confusion. Negative for agitation and behavioral problems. Physical Exam: Wt Readings from Last 3 Encounters: 12/30/20 62 kg (136 lb 9.6 oz) 07/26/20 66.7 kg (147 lb) 06/24/20 68.9 kg (151 lb 12.8 oz) Temp Readings from Last 3 Encounters: 12/30/20 36.2 ??C (97.1 ??F) (Temporal) 07/26/20 35.8 ??C (96.5 ??F) (Temporal) 06/24/20 36.1 ??C (96.9 ??F) (Temporal) BP Readings from Last 3 Encounters: 12/30/20 145/77 07/26/20 110/78 06/24/20 141/82 Pulse Readings from Last 3 Encounters: 12/30/20 63 07/26/20 71 06/24/20 57 Body surface area is 1.75 meters squared. Wt Readings from Last 3 Encounters: 12/30/20 62 kg (136 lb 9.6 oz) 07/26/20 66.7 kg (147 lb) 06/24/20 68.9 kg (151 lb 12.8 oz) KPS Score ECOG Grade Definition 90-100 [...] confined to bed or chair Physical Exam Vitals reviewed. Constitutional: General: He is not in acute distress. Appearance: Normal appearance. He is well-developed. He is not ill-appearing, toxic-appearing or diaphoretic. Comments: Thin elderly man. HENT: Head: Normocephalic. Mouth/Throat: Mouth: Mucous membranes are moist. Pharynx: Oropharynx is clear. No oropharyngeal exudate or posterior oropharyngeal erythema. Eyes: General: No scleral icterus. Right eye: No discharge. Left eye: No discharge. Conjunctiva/sclera: Conjunctivae normal. Cardiovascular: Rate and Rhythm: Normal rate and regular rhythm. Heart sounds: Normal heart sounds. No murmur. No friction rub. No gallop. Pulmonary: Effort: Pulmonary effort is normal. No respiratory distress. Breath sounds: Normal breath sounds. No wheezing or rales. Chest: Chest wall: No tenderness. Abdominal: General: Bowel sounds are normal. There is distension. Palpations: Abdomen is soft. There is no mass. Tenderness: There is no abdominal tenderness. Comments: Bladder distended Musculoskeletal: General: No swelling or tenderness. Normal range of motion. Right lower leg: No edema. Left lower leg: No edema. Lymphadenopathy: Head: Right side of head: No submental or submandibular adenopathy. Left side of head: Submandibular adenopathy present. No submental adenopathy. Cervical: No cervical adenopathy. Right cervical: No posterior cervical adenopathy. Left cervical: No posterior cervical adenopathy. Upper Body: Right upper body: No supraclavicular or axillary adenopathy. Left upper body: No supraclavicular or axillary adenopathy. Lower Body: No left inguinal adenopathy. Skin: General: Skin is warm and dry. Coloration: Skin is not jaundiced. Findings: No rash. Neurological: General: No focal deficit present. Mental Status: He is alert and oriented to person, place, and time. Cranial Nerves: No cranial nerve deficit. Motor: No weakness. Psychiatric: Mood and Affect: Mood normal. Behavior: Behavior normal. Thought Content: Thought content normal. Judgment: Judgment normal. Review of Laboratory Data: 12/26/20- WBC-6.20 Hgb/Hct-12.0/37.2 MCV-100.3 Plt-121 ANC-4.44 Lymphocytes-16% Na-141 K+-3.7 BUN/cr-11/0.9 Glucose-91 Ca-9.1 T. Bili-0.7 AST-23 ALT-27 Alk phos-106 LDH-191 Albumin-3.1 PSA-1.2 10/24/20- PSA-1.4 Testosterone-309 I reviewed the labs from 06/18/2020 white blood cell count normal at 6.0, hemoglobin 14.7 [id number] absolute neutrophil count 4.6 absolute lymphocyte count [...] left inguinal node 03/18/15; taken from the [facility] pathology report - [...] grade or diffuse process is not excluded. Assessment & Plan: Narcisa Eduardo is a 75 y.o. 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 He was last treated for his follicular lymphoma back in 2016 as detailed below. We discussed the fact that it is unlikely that he is cured but that he does appear to be in remission. His recent labs are reviewed and unremarkable. His most recent imaging from November did not indicate any adenopathy atthis time. Clinically while he is still recovering from his recent prostate cancer treatment coursehe seems to be doing well. We discussed signs and symptoms to be aware of that might indicate recurrence or progression of his follicular lymphoma. Discussed that should it come back there are treatment options that would still be available he can consider. Discussed that we would follow him typically with labs and periodic clinic visits. Would not pursue imaging at this time unless there was a clinical change. Mr. Eduardo was found to have a distended bladder on exam. He most recently was in the hospital withinfection from a UTI requiring an ICU stay. We will have him go to the ED or Urgent Care to have his bladder residual checked. He is somewhat confused today but is denying any urinary issues. Plan: We will have him return in one year with CBC,CMP for lymphoma surveillance. documented in this encounter Plan of Treatment Upcoming Encounters Date Type Department Care Team (Late st Contact Info) Description 11/09/2024 10:30 AM EDT Office Visit Radiation Oncology at [address] [phone] Taya De La Vega PA [facility] [place] [address] 11/13/2024 2:00 PM EDT Office Visit Hematology/Oncology at [address] [phone] Kirt Kennedy MD [facility] [place] [address] Alem Lazaro APRN [address] [place] [address] DR HEMATOLOGY AND ONCOLOGY [place], [place] [id number] documented as of this encounter Visit Diagnoses Diagnosis Malignant neoplasm of prostate Follicular lymphoma, unspecified grade, unspecified body region documented in this encounter Care Teams Program Director Relationship Specialty Start Date End Date Alfredo Montoya DO [address] [place], [place] [id number] PCP - General Internal Medicine 12/04/19 04/27/23 documented as of this encounter
--- OUTSIDE RECORDS SUMMARY | 2024-05-24 19:29 | XMS_ITS | Encounter Summary ---
Author Organization [facility] [place] [address] Care Team Providers Care Fabric Worker Foreman Name Role Phone Alfredo Montoya DO Primary Care Provider [phone] Encounter Details Date Type Department Care Team (Late st Contact Info) Description 10/02/2020 Telephone Radiation Oncology at [address] [phone] Noelle Ramirez RN Social History [...] Telephone Encounter - Noelle Ramirez RN - 10/02/2020 9:26 AM EST Radiation Oncology Nurse Telephone Note [facility] [place], [place] 09:18 Pt's called stating that he has developed hematuria. She states that [facility] agency is aware of this and someone is coming today to get a urine sample to R/O infection. I then spoke to pt, who joined the call, who confirmed this. It started 2 or 3 days ago and his urine is pink. He denies pain or frequency. His UI is the same , not worse and still wearing Depends garments. He also denies fever. He states that he is expecting a call from a physician from neurology and can't talk long. then stated he is having diarrhea and she thinks it is related to new medication after having a brain aneurism . She spelled out the name, Zalporic acid ( Depakote) . quickly asked to end this call ,because of call coming in and anticipating it is the physician he is expecting. I instructed them to make sure this person is aware of the diarrhea and that home health and his PCP follow the hematuria and urine test results. Agreement of this plan could not be confirmed due to pt quickly ending this call after my instructions. Plan: nursing will check in with him later this week. documented in this encounter Plan of Treatment Upcoming Encounters Date Type Department Care Team (Late st Contact Info) Description 11/09/2024 10:30 AM EDT Office Visit Radiation Oncology at [address] [phone] Taya De La Vega PA [facility] DR [place] [address] 11/13/2024 2:00 PM EDT Office Visit Hematology/Oncology at [address] [phone] Kirt Kennedy MD [facility] DR [place] [address] Alem Lazaro APRN [address] [place] [address] DR [place]EM[place]Y [place] [address] documented as of this encounter Visit Diagnoses Not on filedocumented in this encounter Care Teams Fabric Worker Foreman Relationship Specialty Start Date End Date Alfredo Montoya DO [address] [place] [id number] PCP - General Internal Medicine 12/04/19 04/27/23 documented as of this encounter
--- OUTSIDE RECORDS SUMMARY | 2024-05-24 19:29 | XMS_ITS | Encounter Summary ---
Author Organization [facility] Address [facility] [place] [address] Care Team Providers Care Stock Analyst Name Role Phone Alfredo Montoya DO Primary Care Provider [phone] Reason for Visit * - Closed Specialty Diagnoses / Procedures Referred By Rogers t Referred To Contact Procedures Film Library- Storage Only CT Head Alfredo Montoya DO [address] [place] [address] Referral ID Status Reason Start Date Expiration Date Visits Re quested Visits Authorized [id number] Closed 01/05/2021 01/05/2022 1 1 Encounter Details Date Type Department Care Team (Late st Contact Info) Description 01/05/2021 12:25 PM EDT Ancillary Procedure Radiology Library at [facility] [place] [address] Alfredo Montoya DO [address] [place] [address] Social History Tobacco Use Types [...] AM EDT Office Visit Radiation Oncology at [address] [phone] Taya De La Vega PA [facility] DR HEMATOLOGY [place] [address] 11/13/2024 2:00 PM EDT Office Visit Hematology/Oncology at [address] [phone] Kirt Kennedy MD [facility] DR HEMATOLOGY [place] [address] Alem Lazaro APRN [address] [place] [address] DR HEMATOLOGY AND ONCOLOGY [place], [place] [id number] documented as of this encounter Procedures Procedure Name Priority Date/Time Associated Diagnosis Comments FILM LIBRARY STORAGE ONLY CT HEAD Routine 01/05/2021 12:23 PM EDT documented in this encounter Results * Film Library- Storage Only CT Head (01/05/2021 12:23 PM EDT) Narrative [facility] - 01/05/2021 12:23 PM EDT This exam is auto-finalizing. It's purpose is for storage only. Alfredo Montoya DO [facility] FILM LIBRARY OR DERABLES Performing Organization Address City/State/[facility] Co de Phone Number [place], [place] documented in this encounter Visit Diagnoses Not on filedocumented in this encounter Care Teams Stock Analyst Relationship Specialty Start Date End Date Alfredo Montoya DO [address] [place] [id number] PCP - General Internal Medicine 12/04/19 04/27/23 documented as of this encounter
--- OUTSIDE RECORDS SUMMARY | 2024-05-24 19:29 | XMS_ITS | Encounter Summary ---
Author Organization [facility] Address [facility] [place] [address] Care Team Providers Care Pattern Data Operator Name Role Phone Alrfedo Montoya DO Primary Care Provider [phone] Reason for Visit * Reason Comments Cerebrovascular Accident Encounter Details Date Type Department Care Team (Latest Contact Info) Description 08/27/2020 6:40 PM EST Ext Surgery or Single Event Cardiology at [address] [phone] Alex Navarrete MD [facility] [place] [address] Cerebrovascular accident (CVA), unspecified mechanism Social History Tobacco Use Types Packs/Day Years [...] EDT Office Visit Radiation Oncology at [address] [phone] Taya De La Vega PA [facility] [place] [address] 11/13/2024 2:00 PM EDT Office Visit Hematology/Oncology at [address] [phone] Kirt Kennedy MD [facility] DR [place] [address] Alem Lazaro APRN [address] [place] [address] DR HEMATOLOGY AND ONCOLOGY [place], [place] [address] documented as of this encounter Procedures Procedure Name Priority Date/Time Associated Diagnosis Comments HOLTER MONITOR 24 HOUR Routine 08/27/2020 documented in this encounter Results * Holter Monitor 24hr (08/27/2020) Anatomical Region Laterality Modality Other Narrative 08/27/2020 Location: [facility] Referring: [facility] Indication: ??CVA Duration of recording ? 23h59m Summary Data Predominant rhythm ? sinus rhythm Minimum sinus rate: 41 bpm Maximum sinus rate: 97 bpm Average sinus rate: 59 bpm Supraventricular Beats Very rare atrial premature beats (APC? s) There were no runs of SVT There was no atrial fibrillation Ventricular Beats Very rare ventricular premature beats (VPC's) No high grade or sustained ventricular ectopy AV Node NO high grade conduction block noted There were no patient diary events: Conclusion(s): ?? Predominant rhythm is sinus, with normal range and circadian variation No significant supraventricular or ventricular ectopy. ??No atrial fibrillation/flutter No symptoms over monitored duration Electronically Signed: Alex Navarrete MD, 08/27/2020 10:20 AM Historical Provider CARDIAC SERVICES ORDERABLES documented in this encounter Visit Diagnoses Diagnosis Cerebrovascular accident (CVA), unspecified mechanism documented in this encounter Care Teams Pattern Data Operator Relationship Specialty Start Date End Date Alfredo Montoya DO [address] [place] [id number] PCP - General Internal Medicine 12/04/19 04/27/23 documented as of this encounter
--- OUTSIDE RECORDS SUMMARY | 2024-05-24 19:30 | XMS_ITS | Encounter Summary ---
Author Organization [facility] [place] [address] Care Team Providers Care Assembler Convertible Top Name Role Phone Alfredo Montoya DO Primary Care Provider [phone] Encounter Details Date Type Department Care Team (Latest Contact Info) Description 04/22/2020 10:00 AM EDT Clinical Support Hematology/Oncology at [address] [phone] Malignant neoplasm of prostate Social History Tobacco Use Types Packs/Day Years Used Date Smoking Tobacco: Every Day Cigarettes 1 60.8 Started: 1964 Alcohol Use Standard Drinks/Week Comments Not Currently 0 (1 standard drink = 0.6 oz pure alcohol) 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 Sex and Gender Information Value Date Recorded Sex Assigned at Not on file Gender Identity Not on file Sexual Orientation Not on file documented as of this encounter Progress Notes * Kristyn Johnson RD - 04/22/2020 10:00 AM EDT [facility] Dietitian Follow Up Seen By: Kristyn Johnson RD LD Referred by: Dr. Evans Patient and diagnosis: Narcisa Eduardo is a 74 y.o. year old male receiving radiation therapy for prostate cancer. HPI: Patient Active Problem List Diagnosis Code ??? 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 Malignant neoplasm of prostate C61 Meds: reviewed Estimated body mass index is 23.16 kg/m?? as calculated from the following: Height as of 04/22/15: 175.8 cm (5' 9.21). Weight as of 04/18/20: 71.6 kg (157 lb 12.8 oz). Wt Readings from Last 3 Encounters: 04/18/20 71.6 kg (157 lb 12.8 oz) 04/11/20 72.1 kg (159 lb) 04/04/20 71.1 kg (156 lb 12.8 oz) Wt Hx: UBW: 170 lbs % UBW: IBW: +/- 10% % IBW: ___ Edema ___ Ascites ___Muscle wasting Nutrition Assessment: Food Intake: Am: first meal around 10 or 11, mohawk muffin with egg on one side and butter and jam on the other Noon: often skips Pm: shrimp with crackers Snacks: rarely snacks; occasional ice cream for dessert (noticed diarrhea/stomach upset after eating ice cream recently) Fluids: one cup of coffee in AM, decaf iced tea, trying to increase water (admits he did not drink as much over the weekend) Supplements/Frequency: ___ Ensure/Plus ___ Boost/Plus ___ CIB ___ Other: Teas, vitamins, or other nutritional supplements: n/a Food allergies or avoidances: n/a Appetite: good Bowels: reports some improvement in stool frequency - taking metamucil is helping, usually taking 1dose per day or every other day; He did have one more occasion of diarrhea after which he took someimmodium, but next BM was more formed Food availability/purchasing, meal planning and preparation: usually prepares dinner meal Anticipated adherence/understanding: good Nutrition Diagnosis: Increased bloating/gas, changes in bowels related to radiation therapy for prostate cancer. Nutrition Intervention: ? Reviewed/reinforced tips to help reduce bloating, including smaller more frequent meals, avoidingcaffeine on an empty stomach, avoiding common gas producing foods. ? Discussed keeping up with good nutrition habits after treatment is completed. Encouraged quality protein sources. ? Reinforced importance of adequate fluid intake, especially if adding fiber/metamucil ? Recommended limiting foods high in lactose, such as ice cream, milk, certain cheeses (list provided) Monitoring and Evaluation: Will follow up as needed. documented in this encounter Plan of Treatment Upcoming Encounters Date Type Department Care Team (Late st Contact Info) Description 11/09/2024 10:30 AM EDT Office Visit Radiation Oncology at [address] [phone] Taya De La Vega PA [facility] DR HEMATOLOGY [place] [address] 11/13/2024 2:00 PM EDT Office Visit Hematology/Oncology at [address] [phone] Kirt Kennedy MD [facility] DR HEMATOLOGY [place] [address] Alem Lazaro APRN [address] [place] [address] DR HEMATOLOGY AND ONCOLOGY [place], [place] [address] documented as of this encounter Visit Diagnoses Diagnosis Malignant neoplasm of prostate documented in this encounter Care Teams Assembler Convertible Top Relationship Specialty Start Date End Date Alfredo Montoya DO [address] [place] [id number] PCP - General Internal Medicine 12/04/19 04/27/23 documented as of this encounter
--- OUTSIDE RECORDS SUMMARY | 2024-05-24 19:30 | XMS_ITS | Encounter Summary ---
Author Organization [facility] [place] [address] Care Team Providers Care Roller Helper Name Role Phone Alfredo Montoya DO Primary Care Provider [phone] Encounter Details Date Type Department Care Team (Late st Contact Info) Description 01/31/2020 Telephone Radiation Oncology at [address] [phone] Noelle Ramirez RN Social History [...] Telephone Encounter - Noelle Ramirez RN - 02/01/2020 8:31 AM EDT Radiation Oncology Nurse Telephone Note [facility] [place] [place] Received telephone call from [place] PCP's office regarding Plavix management with upcoming prostate fiducial implant procedure. Cydney, relayed message from Dr Montoya that he is to hold the Plavix 5 days prior to the procedure and that their office have called the patient with this information. Plan: nursing will be calling pt 02/01 to go over standard pt education for this procedure and will review this with him. documented in this encounter Plan of Treatment Upcoming Encounters Date Type Department Care Team (Late st Contact Info) Description 11/09/2024 10:30 AM EDT Office Visit Radiation Oncology at [address] [phone] Taya De La Vega PA [facility] [address] [place] [address] 11/13/2024 2:00 PM EDT Office Visit Hematology/Oncology at [address] [phone] Kirt Kennedy MD [facility] DR [place] [address] Alem Lazaro APRN [address] [place] [address] DR HEMATOLOGY AND ONCOLOGY [place], [place] [phone] documented as of this encounter Visit Diagnoses Not on filedocumented in this encounter Care Teams Roller Helper Relationship Specialty Start Date End Date Alfredo Montoya DO [address] [place] [id number] PCP - General Internal Medicine 12/04/19 04/27/23 documented as of this encounter
--- OUTSIDE RECORDS SUMMARY | 2024-05-24 19:30 | XMS_ITS | Encounter Summary ---
Author Organization [facility] [place] [address] Care Team Providers Care Tractor Engine Mechanic Name Role Phone Alfredo Montoya DO Primary Care Provider [phone] Encounter Details Date Type Department Care Team (Late st Contact Info) Description 04/25/2020 10:00 AM EDT Office Visit Radiation Oncology at [address] [place] [phone] Que Evans MD [address] [place] [address] [place] [address] Malignant neoplasm of prostate Social History Tobacco [...] Sign Reading Time Taken Comments Blood Pressure 144/82 04/25/2020 9:00 AM EDT Pulse 67 04/25/2020 9:00 AM EDT Temperature 36.5 ??C (97.7 ??F) 04/25/2020 9:00 AM ED T Respiratory Rate 16 04/25/2020 9:00 AM EDT Oxygen Saturation 99% 04/25/2020 9:00 AM EDT Inhaled Oxygen Concentration - - Weight 70.9 kg (156 lb 6.4 oz) 04/25/2020 9:00 A M EDT Height - - Body Mass Index 22.95 04/22/2015 1:44 PM EDT documented in this encounter Progress Notes * Que Evans MD - 04/25/2020 10:00 AM EDT Images from the original note were not included. RADIATION ONCOLOGY - Weekly On Treatment Visit Note 04/25/20 Que Evans MD, MS Radiation Oncology [facility] [phone] (paging paratransit operator) Pager #[phone] PATIENT IDENTIFICATION Name Narcisa Eduardo Date of 1945 PCP Alfredo Montoya DO Referring MD (if different) Dr. 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 GI - Bowels variable, more constipated than diarrhea. Taking Metamucil as needed. - More hesitancy and slower stream this week, but feels he is able to empty well. Nocturia variable but 1x/nt recently (vs 0-2x/nt at baseline). Rx'ed but never started Flomax. 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 Baseline IPSS history is listed below. Prostate Today's Scores 01/01/2020 Sexual Health Inventory for Men 25 International Prostate Symptom Score 8 (Moderate LUTS) Pain: Pain score today is 0/10. MEDICATIONS Medications 04/25/20 0950 Medication Sig Taking? senna (Senokot) 8.6 mg Tablet Take 1 tablet by mouth daily as needed for Constipation. Yes Psyllium Seed-Sucrose (0) Powder Take by mouth as needed (taking it about QOD). Yes ergocalciferol, vitamin D2, (VITAMIN D ORAL) Take by mouth daily. Yes atorvastatin (Lipitor) 80 mg Tablet Take 80 mg by mouth daily. Yes lisinopriL (Prinivil;Zestril) 10 mg Tablet Take 10 mg by mouth daily. Yes clopidogreL (Plavix) 75 mg Tablet Take 75 mg by mouth daily. Yes loperamide (IMODIUM A-D) 2 mg Tablet Take by mouth 4 times daily as needed for Diarrhea. Maximum 16mg in 24 hours tamsulosin (Flomax) 0.4 mg Capsule Take 1 capsule by mouth nightly. Patient not taking: Reported on 03/21/2020 IMAGING I have personally reviewed this patient's interval portal imaging to confirm accurate positioning and alignment which matches the patient's original approved treatment planning images. EXAM: BP 144/82 Pulse 67 Temp 36.5 ??C (97.7 ??F) (Temporal) Resp 16 Wt 70.9 kg (156 lb 6.4 oz) SpO2 99% BMI 22.95 kg/m?? Constitutional: he appears well-developed and well-nourished. No distress. Performance Status: KPS Score ECOG Grade Definition X 90-100 0 Fully active, able to carry [...] selfcare; totally confined to bed or chair IMPRESSION/PLAN Tolerance to radiotherapy: Tolerated very well. Completes tomorrow. LUTS Discussed flomax can be used prn. Followup: Return to clinic 3 months for RV. Will check PSA prior. documented in this encounter Plan of Treatment Upcoming Encounters Date Type Department Care Team (Late st Contact Info) Description 11/09/2024 10:30 AM EDT Office Visit Radiation Oncology at [address] [phone] Taya De La Vega PA [facility] HEMATOLOGY [place] [address] 11/13/2024 2:00 PM EDT Office Visit Hematology/Oncology at [address] [phone] Kirt Kennedy MD [facility] DR HEMATOLOGY [place] [address] Alem Lazaro APRN [address] [place] [address] [place] [address] documented as of this encounter Visit Diagnoses Diagnosis Malignant neoplasm of prostate documented in this encounter Care Teams Tractor Engine Mechanic Relationship Specialty Start Date End Date Alfredo Montoya DO [address] [place] [id number] PCP - General Internal Medicine 12/04/19 04/27/23 documented as of this encounter
--- OUTSIDE RECORDS SUMMARY | 2024-05-24 19:30 | XMS_ITS | Encounter Summary ---
Author [facility] [place] [address] Care Team Providers Care Bender Machine Name Role Phone Alfredo Montoya DO Primary Care Provider [phone] Reason for Referral * Consultation (Routine) - Specialty Diagnoses / Procedures Referred By Contaryan t Referred To Contact Radiation Oncology Diagnoses Malignant neoplasm of prostate Procedures Simulation for Radiation Therapy Planning Que Evans MD [address] [place] [address] [place] [address] [facility] Rad Onc Office [address] [place] [phone] Referral ID Status Reason Start Date Expiration Date V isits Requested Visits Authorized [id number] Consult, Test & Treat 12/01/2019 05/29/2020 99 99 Encounter Details Date Type Department Care Team (Late st Contact Info) Description 01/18/2020 8:30 AM EDT Office Visit Radiation Oncology at [address] [phone] Que Evans MD [address] [place] [address] [place] [address] Malignant neoplasm of prostate Social [...] on file documented as of this encounter Patient Instructions * Patient Instructions* Que Evans MD - 01/18/2020 8:30 AM EDT Dear Mr. Eduardo, We discussed the following next steps as part of your cancer evaluation and/or treatment: 1. The aggressiveness of your prostate cancer: You technically have unfavorable intermediate risk prostate cancer, which is a risk given to yourcancer of coming back after treatment. This is based on three things 1. Your PSA (the blood test) was 12.9. PSA values below 10 are considered low risk and 10-20 are considered medium risk and above 20 are considered high risk. 2. Your highest Allie score was 4+3=7 (this is how aggressive your prostate cancer looks under the microscope). Allie scores for cancer range from 6-10, and 6 is considered lowest risk, while scores of 8-10 are considered higher risk. 3. How aggressive your prostate cancer felt on the prostate exam (through the rectum) which did notshow any evidence of prostate cancer coming out of the prostate. The decision to treat prostate cancer is based on both the risk that the cancer can harm you and your general overall health. Intermediate risk prostate cancers, if untreated, would cause you harm (ie spread, or kill you) in 7-10 years. 2. Radiation Treatment Options: Radiation for your prostate cancer can be done in either 9 or 5.5 weeks with external beam radiation alone. There is slightly less experience with the shorter course and while safe in the supervisor intermediates it might be associated with slightly higher side effects during radiation. Also, it may not be as effective as the longer 9 week course. 3. Fiducial marker and SpaceOAR gel implants: If you decide to choose external beam radiation by itself, the first step will be for you to return to our clinic so that we can place small gold markers(called fiducials) into the prostate, which help us visualize the prostate on a daily basis prior to treating you with radiation. These small gold seeds are about the size of a grain of rice, and we will place one into each side of the prostate. At the same time I will also implant a gel called SpaceOAR, which involves an injection of the gel into the space between the prostate and rectum, to decrease the amount of radiation that goes to the rectum. Some early data suggests it may be helpful in reducing radiation injury to the rectum. These procedures will be performed here in our clinic, and our nursing team will provide you instructions with how to prepare yourself. It takes approximately 2 hours from when you arrive to when you leave the building. 4. Radiation Therapy and Planning: Radiation therapy involves using high energy radiation which kills cancer but also normal healthy tissues. In order to make sure the radiation goes to the canceroustissues and to also avoid radiating the normal tissues, we design radiation beams beams into special shapes which come from various different directions. Because no two people and no two cancers are completely identical, the radiation plan we create for you will be unique to you and your body. In order to figure out how many beams to use, how much radiation to give, which angles they should come from, and how they should be shaped, we have asked you to undergo 2 mapping scans: one is done here in our department known as a CT simulation, or CT sim, for short. This is essentially a CAT-scan similar to scans which you may have received before, but slightly different in a few ways: First, it allows us to place you in the exact same position which you should expect to be placed during each of your radiation treatment sessions. Second, it lets us better understand where the radiation targets and the normal tissues that we want to avoid exist, in relation to each other and the radiation beams. The second scan is a prostate MRI which will show us the position of the markers and improve our ability to see your prostate. Following these scans, we then perform additional calculations and measurements to create the absolute best plan possible for you. Depending on the complexity of the plan, these processes can take from just few hours to several days, and for that we ask for your patience. If you have any questions about the planning process or your custom radiation plan, I would be more than happy to review the plan with you during your first week of treatment. I anticipate you would receive either 25 or 44 treatments total, daily Wednesday-Wednesday. (25 treatments if you choose to have the radioactive seed implant, 44 if external beam radiation by itself.) Your start date and time would be provided once the simulation scan is completed. During your radiation treatments, you can expect to see me once per week so that I can examine you to make sure you are tolerating radiation treatments and so that we can monitor your response to treatment. 5. SIDE EFFECTS - Short Term: We discussed some common temporary side effects that you may experience during radiation. Common side effects may include irritative symptoms of the bladder or prostate,which can result in more frequent urination or defecation. Other common side effects mahy include weakened urinary stream or burning with urination. If you experience any of these, please let us knowso that we can help to treat them. These typically resolve within 4-6 weeks of completion radiation. 6. SIDE EFFECTS - Fpc: These can include be permanent damage of the radiated tissues, including the rectum/bowel, bladder, prostate and surrounding tissues. Potential serious injury is rare, but can include poor wound healing, bleeding, or destruction of healthy tissue that may require surgery to repair and may result in a colostomy (bag for defecation) or urostomy (bag for urination). There may be a slow, correction decrease in your sexual function as well, which is partly due to the aging process but also partly due to radiation side effects. This is typically responsive to medicationslike Viagra. Finally, there is a risk that radiation to your prostate increases the chance of getting another cancer caused by radiation, possibly of the prostate, bladder, rectum or surrounding tissues. This risk is overall quite low (approximately 1% above your normal risk for each 10 years you are alive), but is something to be aware of. Please do not hesitate to call me at [phone] with any other questions or concerns you have. IfI am not here, one of our radiation oncology nurses can assist you or help you get in touch with me. A Radiation Oncology doctor is also oracle ebs consultant after our normal hours and on weekends for urgent questions or concerns related to radiation treatments that can not wait until normal business hours. To reach the on-call doctor after-hours, just call and have the bender machine operator page the Radiation Oncologist oracle ebs consultant. And, as always, if you experience any life-threatening emergencies which any include the following,you need to seek emergency care immediately by calling 911: 1. Sudden and unexpected breathing difficulty without any exertion 2. Sudden onset of chest pain 3. Sudden onset of severe pain or uncontrolled pain 4. Sudden onset of severe weakness and/or unable to walk 5. Sudden new onset of a seizure 6. Fall resulting in injury 7. Uncontrollable bleeding Que Head MD, MS Jewel Diameter Gauger of Radiation Oncology [facility] documented in this encounter Progress Notes * Que Evans MD - 01/18/2020 8:30 AM EDT Radiation Oncology Established Patient Followup Note Que Evans MD, MS [facility] Patient Identification: Narcisa Eduardo is a 74 y.o. year old male with unfavorable intermediate risk prostate cancer (cT1c, Gl 4+3 x 1 core, PSA 12.9). For details regarding initial presentation please refer to my TeleHealth consultation note dated 01/08/20. INTERVAL HISTORY I am seeing him today to review his interval medical history, the treatment plan for his prostate cancer, the logistics of external beam radiotherapy (including fiducial marker placement, spaceOAR gel implantation, planning MRI, CT simulation and treatment itself), possible acute toxicities and/or late complications. Since last seen, he reports no change in his overall medical condition and is here today to provideinformed consent. ASSESSMENT / PLAN Logistics, toxicities and complications of pelvic / prostatic radiation were reviewed with the patient today. He has declined ADT. Afterwards, informed consent for fiducial marker, spaceOAR placement, CT simulation and external beam radiotherapy was obtained. Nursing staff will provide additional teaching with regard to pre and post procedure medications. At least 30 minutes of this 40 minute visit was spent with the patient [id number] reviewing his interval medical history and answering questions related to his prostate cancer. documented in this encounter Plan of Treatment Upcoming Encounters Date Type Department Care Team (Late st Contact Info) Description 11/09/2024 10:30 AM EDT Office Visit Radiation Oncology at [address] [phone] Taya De La Vega PA [facility] [place] [address] 11/13/2024 2:00 PM EDT Office Visit Hematology/Oncology at [address] [phone] Kirt Kennedy MD [facility] [place] [address] Alem Lazaro APRN [address] [place] [address] DR HEMATOLOGY AND ONCOLOGY [place], [place] [id number] Scheduled Orders Name Type Priority Associated Diagnoses Orde r Schedule Simulation for Radiation Therapy Planning Procedures Routine Malignant neoplasm of prostate Ordered: 01/18/2020 documented as of this encounter Visit Diagnoses Diagnosis Malignant neoplasm of prostate documented in this encounter Care Teams Bender Machine Relationship Specialty Start Date End Date Alfredo Montoya DO [address] [place] [address] PCP - General Internal Medicine 12/04/19 04/27/23 documented as of this encounter
--- OUTSIDE RECORDS SUMMARY | 2024-05-24 19:30 | XMS_ITS | Encounter Summary ---
Author Organization [facility] [place] [address] Care Team Providers Care 3Rd Mate Name Role Phone Alfredo Montoya DO Primary Care Provider [phone] Encounter Details Date Type Department Care Team (Late st Contact Info) Description 01/17/2020 Telephone Radiation Oncology at [address] [phone] Meng Chauhan Social History Tobacco Use Types Packs/Day Years [...] encounter Miscellaneous Notes * Telephone Encounter - Meng Chauhan - 01/17/2020 4:15 PM EDT Called Narcisa to inform him of the following: As a new precaution with COVID-19 we are calling all patients before they come in for their appointment to screen for any potential symptoms. 1. EXPOSURE: ???Have you been in contact with anyone suspected or confirmed to have COVID-19 in thepast 14 days??? No 2. Do you have a fever, cough, or shortness of breath? No Another precaution we are taking is that we are not allowing visitors at this time. If needed, someone may bring you to your appointment but they will be asked to wait outside. If you develop symptoms of shortness of breath, cough, or fever prior to your appointment do not come in for your appointment. Please call the Cancer Center before coming in. documented in this encounter Plan of Treatment Upcoming Encounters Date Type Department Care Team (Late st Contact Info) Description 11/09/2024 10:30 AM EDT Office Visit Radiation Oncology at [address] [phone] Taya De La Vega PA [facility] DR HEMATOLOGY [place] [address] 11/13/2024 2:00 PM EDT Office Visit Hematology/Oncology at [address] [phone] Kirt Kennedy MD [facility] DR HEMATOLOGY [place] [address] Alem Lazaro APRN [address] [place] [address] DR HEMATOLOGY AND ONCOLOGY [place], [place] [address] documented as of this encounter Visit Diagnoses Not on filedocumented in this encounter Care Teams 3Rd Mate Relationship Specialty Start Date End Date Alfredo Montoya DO [address] [place] [address] PCP - General Internal Medicine 12/04/19 04/27/23 documented as of this encounter
--- OUTSIDE RECORDS SUMMARY | 2024-05-24 19:30 | XMS_ITS | Encounter Summary ---
Author Organization [facility] Address [facility] [place] [address] Care Team Providers Care Automobiles Salesperson Name Role Phone Alfredo Montoya DO Primary Care Provider [phone] Encounter Details Date Type Department Care Team (Late Contact Info) Description 01/05/2020 Orders Only Hematology/Oncology at [address] [phone] Noelle Ramirez RN Social History Tobacco Use Types Packs/Day Years Used Date Smoking Tobacco: Every Day Cigarettes Alcohol Use Standard Drinks/Week Comments Yes 0 (1 standard drink = 0.6 oz pure alcohol) [facility] ETOH [facility] Sex and Gender Information Value Date Recorded Sex Assigned at Not on file Gender Identity Not on file Sexual Orientation Not on file documented as of this encounter Plan of Treatment Upcoming Encounters Date Type Department Care Team (Late Contact Info) Description 11/09/2024 10:30 AM EDT Office Visit Radiation Oncology at [address] [phone] Taya De La Vega PA [facility] DR [place] [address] 11/13/2024 2:00 PM EDT Office Visit Hematology/Oncology at [address] [phone] Kirt Kennedy MD [facility] DR [place] [address] Alem Lazaro APRN [address] [place] [address] DR [place] [address] documented as of this encounter Visit Diagnoses Not on filedocumented in this encounter Care Teams Automobiles Salesperson Relationship Specialty Start Date End Date Alfredo Montoya DO [address] [place] [address] PCP - General Internal Medicine 12/04/19 04/27/23 documented as of this encounter
--- OUTSIDE RECORDS SUMMARY | 2024-05-24 19:30 | XMS_ITS | Encounter Summary ---
Author Organization [facility] [place] [address] Care Team Providers Care Plant Electrician Name Role Phone Alfredo Montoya DO Primary Care Provider [phone] Encounter Details Date Type Department Care Team (Late Contact Info) Description 02/29/2020 Telephone Radiation Oncology at [address] [phone] Yessi Lei Social History Tobacco Use Types Packs/Day Years [...] EDT Office Visit Radiation Oncology at [address] [phone] Taya De La Vega PA [facility] HEMATOLOGY [place] [address] 11/13/2024 2:00 PM EDT Office Visit Hematology/Oncology at [address] [phone] Kirt Kennedy MD [facility] HEMATOLOGY [place] [address] Alem Lazaro, [address] [place] [address] documented as of this encounter Visit Diagnoses Not on filedocumented in this encounter Care Teams Plant Electrician Relationship Specialty Start Date End Date Alfredo Montoya DO [address] [place] [id number] PCP - General Internal Medicine 12/04/19 04/27/23 documented as of this encounter
--- OUTSIDE RECORDS SUMMARY | 2024-05-24 19:30 | XMS_ITS | Encounter Summary ---
Author Organization [facility] [place] [address] Care Team Providers Care Airline Attendant Name Role Phone Alfredo Montoya DO Primary Care Provider [phone] Encounter Details Date Type Department Care Team (Late st Contact Info) Description 04/26/2020 10:00 AM EDT Notes Only Radiation Oncology at [address] [phone] Que Evans MD [address] [place] [address] DR RADIATION ONCOLOGY [place], [place] [id number] Social History Tobacco Use Types Packs/Day Years [...] as of this encounter Progress Notes * Que Evans MD - 04/26/2020 10:00 AM EDT Images from the original note were not included. RADIATION ONCOLOGY - Treatment Completion Summary Que Evans MD, MS Radiation Oncology [facility] [phone] (paging hay stacker operator) Pager #[phone] PATIENT IDENTIFICATION ?? Name Narcisa Eduardo Date of 1945 ? PCP Alfredo Montoya, DO Referring MD (if different) Dr. Martha Montoya ([place]) ? 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 NEOADJUVANT / CONCURRENT THERAPY: Declined ?? INTENT OF THERAPY: Definitive (Curative) ?? RADIATION TREATMENT DETAILS: ?? Initial Treatment Site Pelvis, Entire SV and Prostate Prescribed Dose 45 Gy in 25 fractions ? Boost Treatment Site 1 Proximal SV and Prostate Prescribe Dose 68.4Gy in 38 fractions ? Boost Treatment Site 2 Prostate Prescribed Dose 79.2 Gy in 44 fractions ? Start Date End Date 02/27/20 04/26/20 ?? SPECIAL TECHNICAL CONSIDERATIONS: The patient was simulated on a CT simulator. Customized singh were designed to encompass the target volume and identify organs at risk and with the intent of minimizing normal tissue toxicity. TREATMENT TOLERANCE: With regard to side effects noted during radiotherapy, the patient tolerated treatment extremely well with no significant acute (Grade 3 or above) toxicity. TREATMENT RESPONSE: The patient's response to treatment was undetermined, as he was largely asymptomatic at the time ofpresentation. Future determination will be made via PSA monitoring. FOLLOWUP: Follow-up visit with Radiation Oncology in [facility] is scheduled for 07/26/20 for PSA and symptom check; he has received instructions to call this office or seek the help of the local emergency room if any further problems should arise prior to followup. documented in this encounter Plan of Treatment Upcoming Encounters Date Type Department Care Team (Late st Contact Info) Description 11/09/2024 10:30 AM EDT Office Visit Radiation Oncology at [address] [phone] Taya De La Vega PA [facility] [place] [address] 11/13/2024 2:00 PM EDT Office Visit Hematology/Oncology at [address] [phone] Kirt Kennedy MD [facility] [place] [address] Alem Lazaro, [address] HEMATOLOGY [place] [address] documented as of this encounter Visit Diagnoses Not on filedocumented in this encounter Care Teams Airline Attendant Relationship Specialty Start Date End Date Alfredo Montoya DO [address] [place] [address] PCP - General Internal Medicine 12/04/19 04/27/23 documented as of this encounter
--- OUTSIDE RECORDS SUMMARY | 2024-05-24 19:30 | XMS_ITS | Encounter Summary ---
Author Organization [facility] [place] [address] Care Team Providers Care Retail Sales Associate Seasonal Name Role Phone Alfredo Montoya DO Primary Care Provider [phone] Encounter Details Date Type Department Care Team (Late st Contact Info) Description 03/28/2020 10:00 AM EDT Office Visit Radiation Oncology at [address] [phone] Que Evans MD [address] [place] [address] DR RADIATION ONCOLOGY [place], [place] [id number] Malignant neoplasm of prostate Social History Tobacco [...] Progress Notes * Que Evans MD - 03/28/2020 10:00 AM EDT Images from the original note were not included. RADIATION ONCOLOGY - Weekly On Treatment Visit Note 03/28/20 Que Evans MD, MS Radiation Oncology [facility] [phone] (paging paver operator) Pager #[phone] PATIENT IDENTIFICATION Name Narcisa Eduardo Date of 1945 PCP Alfredo Montoya DO Referring MD (if different) Dr. 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 GI - Constipated. Drinking more water. Considering senna or stool softener. - Nocturia increased to 4x/nt (vs 0-2x/nt at baseline. 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 Baseline IPSS history is listed below. Prostate Today's Scores 01/01/2020 Sexual Health Inventory for Men 25 International Prostate Symptom Score 8 (Moderate LUTS) Pain: Pain score today is 0/10. MEDICATIONS Medications 03/14/20 0959 Medication Sig Taking? tamsulosin (Flomax) 0.4 mg Capsule Take 1 capsule by mouth nightly. Patient not taking: Reported on 03/21/2020 ergocalciferol, vitamin D2, (VITAMIN D ORAL) Take by mouth daily. atorvastatin (Lipitor) 80 mg Tablet Take 80 mg by mouth daily. lisinopriL (Prinivil;Zestril) 10 mg Tablet Take 10 mg by mouth daily. clopidogreL (Plavix) 75 mg Tablet Take 75 mg by mouth daily. IMAGING I have personally reviewed this patient's interval portal imaging to confirm accurate positioning and alignment which matches the patient's original approved treatment planning images. EXAM: There were no vitals taken for this visit. Constitutional: he appears well-developed and well-nourished. No [...] bed or chair IMPRESSION/PLAN Tolerance to radiotherapy: Tolerating as anticipated. Continue as planned. LUTS more from frequency/cystitis than BERMUDEZ He has flomax but will trial Ibuprofen 400mg qhs first as it sounds like he is a good stream and is otherwise emptying well. Followup: Return to clinic next week for on treatment check. documented in this encounter Plan of Treatment Upcoming Encounters Date Type Department Care Team (Late st Contact Info) Description 11/09/2024 10:30 AM EDT Office Visit Radiation Oncology at [address] [phone] Taya De La Vega PA [facility] DR HEMATOLOGY [place] [address] 11/13/2024 2:00 PM EDT Office Visit Hematology/Oncology at [address] [phone] Kirt Kennedy MD [facility] DR HEMATOLOGY [place] [address] Alem Lazaro APRN [address] [place] [address] DR HEMATOLOGY AND ONCOLOGY [place], [place] [id number] documented as of this encounter Visit Diagnoses Diagnosis Malignant neoplasm of prostate documented in this encounter Care Teams Retail Sales Associate Seasonal Relationship Specialty Start Date End Date Alfredo Montoya DO [address] [place] [id number] PCP - General Internal Medicine 12/04/19 04/27/23 documented as of this encounter
--- OUTSIDE RECORDS SUMMARY | 2024-05-24 19:30 | XMS_ITS | Encounter Summary ---
Author Organization [facility] Address [facility] [place] [address] Care Team Providers Care Orchid Hand Name Role Phone Alfredo Montoya DO Primary Care Provider [phone] Encounter Details Date Type Department Care Team (Late st Contact Info) Description 01/18/2020 Notes Only Radiation Oncology at [address] [phone] Noelle Ramirez, RN Social History Tobacco Use Types Packs/Day Years Used Date Smoking Tobacco: Every Day Cigarettes 1 60.8 Started: 1963 Alcohol Use Standard Drinks/Week Comments Not Currently 0 (1 standard drink = 0.6 oz pure alcohol) 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 Sex and Gender Information Value Date Recorded Sex Assigned at Not on file Gender Identity Not on file Sexual Orientation Not on file documented as of this encounter Progress Notes * Noelle Ramirez, RN - 01/18/2020 4:55 PM EDT Patient information for gold coil ( fiducial marker) prostate placement Individual involved with teaching: Patient [ x ] spouse [ ] Other [ ] Procedure Date: To be scheduled soon Arrival Time: Time of Procedure: Location: [facility] Why gold coils? You and your doctor have discussed treatment options and have decided that Gold coils would be helpful in your external beam radiation treatment. The coil is a small 24 karat gold coil that will sit within the prostate and help to locate it on the planning CT scan. Usually 2 coils are used...one to evonne the left and right sides on the gland. WHY DO I NEED A SPACEOAR IMPLANT? ?? The SpaceOAR will help avoid rectal injury during radiation treatment. ?? The space between the prostate and the rectum can be increased by an absorbable gel spacer. ?? The SpaceOAR System is a soft gel-like material that temporarily moves the rectum 1/2 away fromthe high dose radiation area protecting the rectum. It will stay in your body for three months while you are receiving your radiation treatment, and is then naturally absorbed by your body and cleared in your urine in approximately six months. THE WEEK BEFORE THE PROCEDURE: STOP TAKING BLOOD THINNERS Stop taking medications that might thin your blood(anticoagulants) 1 week before your cold coil is scheduled to be placed i.e.;aspirin, ibuprofen, gingko biloba, Coumadin, Lovenox, etc. Please ask ifyou are not sure about any of your medications. >>>>>>>>Nursing will contact your PCP ( Dr Montoya at the [facility]) celso whitehead Plavix managment Prescriptions to get filled per Dr Evans :at the CT Prescription for steroid: to prevent swelling at implant site. [ x ]dexamethasone : starting the day of the procedure: 2 mg twice a day for 3 days then 2 mg once a day for 3 days Prescription for Antibiotic: to prevent infection [ x ]Levofloxacin 500 mg 1 hour before the procedure. [ ]2 fleet enemas- you will need to pick this up over the encounter. No prescription needed. Prescription to help you relax ( if needed) [ pt declined ] THE DAY BEFORE THE PROCEDURE: ?? Eat a normal dinner (evening meal) ?? Administer one fleets enema before bedtime THE MORNING AND DAY OF THE PROCEDURE: ?? Administer the second fleets enema (2-3 hours prior to scheduled time of procedure) ?? Eat a normal meals and take your usual daily medications (except anticoagulants) ?? Start dexamethasone (steroid) as directed. 1 pill twice a day for 3 days, then 1 pill once a dayfor 3 days. ?? Take antibiotic levofloxacin 1 hour prior to procedure. ?? Plan to arrive in the Radiation/Oncology Department 30 minutes before scheduled procedure. You will be asked to change in to a hospital gown (remove everything from your waist down.) How is procedure done? You will be brought into a procedure room and asked to lie on your back with your feet placed in stirrups. An ultrasound probe will be inserted into your rectum in order to visualize your prostate gland. After you are given a local anesthetic, the 2 needles containing the coils will be gently inserted through the skin into your prostate gland. AFTER THE PROCEDURE: ?? You may resume normal activity ?? You may take extra-strength or regular Tylenol for any discomfort. ?? Continue dexamethasone as directed. 1 pill twice a day for 3 days, then 1 pill once a day for 3 days. Call us if you notice any unusual swelling ,pain or if you have any other concerns. How to reach us: [facility] [phone] For weekends and after hours: Call [facility] ask for the oral surgeon radiation oncologist documented in this encounter Plan of Treatment Upcoming Encounters Date Type Department Care Team (Late st Contact Info) Description 11/09/2024 10:30 AM EDT Office Visit Radiation Oncology at [address] [phone] Taya De La Vega PA [facility] DR HEMATOLOGY [place] [address] 11/13/2024 2:00 PM EDT Office Visit Hematology/Oncology at [address] [phone] Kirt Kennedy MD [facility] DR HEMATOLOGY [place] [address] Alem Lazaro APRN [address] [place] [address] DR HEMATOLOGY AND ONCOLOGY [place], [place] [id number] documented as of this encounter Visit Diagnoses Diagnosis Malignant neoplasm of prostate documented in this encounter Care Teams Orchid Hand Relationship Specialty Start Date End Date Alfredo Montoya DO [address] [place] [address] PCP - General Internal Medicine 12/04/19 04/27/23 documented as of this encounter
--- OUTSIDE RECORDS SUMMARY | 2024-05-24 19:30 | XMS_ITS | Encounter Summary ---
Author Organization [facility] [place] [address] Care Team Providers Care Paper Stripper Name Role Phone Alfredo Montoya DO Primary Care Provider [phone] Encounter Details Date Type Department Care Team (Late st Contact Info) Description 02/13/2020 Telephone Radiation Oncology at [address] [phone] Noelle Ramirez RN Social History [...] Telephone Encounter - Noelle Ramirez RN - 02/13/2020 1:43 PM EDT Radiation Oncology Post-Procedure Phone Note Name: Narcisa Eduardo A#: [id number] Telephone #: Procedure: Placement of Gold Coil Fiducials Date of Procedure: 02/09/20 . Spoke on the phone to: Patient If not patient, whom? . She states he is laying down right now He is doing very good. No problems. She answered thebelow questions Message left on answering machine Call attempted - unable to contact patient General condition as stated by the patient or designee: Excellent Good Fair Poor Other x ??? The patient's pain is controlled:Patient Denies pain YES NO x Comments/intervention: ??? Patient denies tenderness / swelling in perineum/scrotum: YES NO x Comments/intervention: ??? Patient denies changes in urinary symptoms: YES NO x Comments/intervention: ??? Patient has questions re medications: YES NO x Comments/interventions: ??? Patient knows how to contact us in case of emergency: YES NO x Comments/interventions: She confirmed his appointment with us tomorrow arrival at 10:[address] SIM. She will have pt call me back after his nap if he has any questions for me. Section Radiation Oncology [facility] documented in this encounter Plan of Treatment Upcoming Encounters Date Type Department Care Team (Late st Contact Info) Description 11/09/2024 10:30 AM EDT Office Visit Radiation Oncology at [address] [phone] Taya De La Vega PA [facility] DR [place] [address] 11/13/2024 2:00 PM EDT Office Visit Hematology/Oncology at [address] [phone] Kirt Kennedy MD [facility] DR [place] [address] Alem Lazaro APRN [address] [place] [address] DR HEMATOLOGY AND ONCOLOGY [place], [place] [address] documented as of this encounter Visit Diagnoses Not on filedocumented in this encounter Care Teams Paper Stripper Relationship Specialty Start Date End Date Alfredo Montoya DO [address] [place] [address] PCP - General Internal Medicine 12/04/19 04/27/23 documented as of this encounter
--- OUTSIDE RECORDS SUMMARY | 2024-05-24 19:30 | XMS_ITS | Encounter Summary ---
Author Organization [facility] Address [facility] [place] [address] Care Team Providers Care Clinical Orthoptist Name Role Phone Robson Robles MD Primary Care Provider [phone] Encounter Details Date Type Department Care Team (Latest Contact Info) Description 12/09/2015 1:53 PM EDT - 12/09/2015 11:59 PM EDT Hospital [place] [phone] Discharge Disposition: Home Social History Tobacco Use Types Packs/Day Years Used Date Smoking Tobacco: Every Day Cigarettes Sex and Gender Information Value Date Recorded Sex Assigned at Not on file Gender Identity Not on file Sexual Orientation Not on file documented as of this encounter Medications at Time of Discharge Medication Sig Dispensed Refills Start Date End Date atenolol (TENORMIN) 25 mg Tablet Take 25 mg by mouth daily. 01/08/2020 documented as of this encounter Plan of Treatment Upcoming Encounters Date Type Department Care Team (Late st Contact Info) Description 11/09/2024 10:30 AM EDT Office Visit Radiation Oncology at [address] [phone] Taya De La Vega PA [facility] DR HEMATOLOGY [place] [address] 11/13/2024 2:00 PM EDT Office Visit Hematology/Oncology at [address] [phone] Kirt Kennedy MD [facility] DR HEMATOLOGY [place] [address] Alem Lazaro APRN [address] [place] [address] [place] [address] documented as of this encounter Procedures Procedure Name Priority Date/Time Associated Diagnosis Comments FLOW CYTOMETRY REPORT Routine 12/09/2015 3:11 PM EDT IMMUNOPHENOTYPING FLOW CYTOMETRY (BLOOD) Routine 12/09/2015 11:35 AM EDT documented in this encounter Results * Flow Cytometry Report (12/09/2015 3:11 PM EDT) Pathologist [facility] Flow Cytometry Report [id number] ?Location[place] The signing pathologist has (i) examined the relevant preparation(s) for the specimen(s) and (ii) rendered or confirmed the diagnosis(es). . ?Flow Cytometry DIAGNOSIS CD19, CD10 and lambda immunoglobulin light chain restricted B-cell population identified. NOTE : The findings support the diagnosis of lymphoma and indicate B-cell phenotype. 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 The differential includes transformation of Large B cell lymphoma , Double Hit lymphoma which cannot be delineated by this analysis. Morphologic correlation is required to distinguish among these possibilities. 12/10/15 PK 12/10/15 Verified by: ? Jade GARRIDO, Curtis ?Hematopathologist ?(Electronic Signature) DISCUSSION Cell viabilty was 91% as assessed by 7-AAD exclusion. The specimen contained a population of CD19, and CD10 positive B lymphocytes that had a monotypic staining pattern for lambda immunoglobulin light chain. Flow analysis is an ancillary study. A definite diagnosis requires correlation with the morphologic features of this process and if necessary, correlation with other ancillary studies like immunohistochemistr y, enzyme cytochemistry and/or cyto/molecular genetics. This test was developed and its performance characteristics determined by the Clinical Flow Cytometry Laboratory at [facility]. It has not been cleared or approved by the U.S. Food and Drug Administration. ??The FDA has determined that such clearance or approval is not necessary. ??This test is used for clinical purposes. ??It should not be regarded as investigational or for research. ??This laboratory is certified under the Clinical Laboratory Improvement Act of 1988 (CLIA) as qualified to perform high complexity clinical laboratory testing. SPECIMEN PROCESSING [id number] Cells for immunophenotypic analysis were derived from inquinal lymph node biopsy. CD45 vs side scatter gating was utilized to identify a lymphoid analysis region that comprises approximately 85-88% of all cells. The following markers were assessed: CD3, CD5, CD10, CD19, CD45, CD56, kappa light chain, and lambda light chain. CLINICAL INFORMATION HX of [facility] 12/09/2015 3:11 PM EDT Anais Escalante MD PATHOLOGY/CYTOLOGY O RDERABLES Performing Organization Address City/[facility]/ZIP Co de Phone Number [facility] [place] [address] * Immunophenotyping Flow Cytometry (12/09/2015 11:35 AM EDT) Immunophenotyping Flow See Comment [facility] Comment: When completed by the Pathologist, the Flow Cytometry Report ([id number]) will display under the Pathology Results section within eDH. Specimen of unknown material (specimen) Other / Unknown 12/09/2015 11:35 AM EDT 12/09/2015 2:43 PM EDT Narrative Resulting Agency Comment Spec In Lab Anais sEcalante MD HEMATOLOGY ORDERABLE S Performing Organization Address City/[facility]/ZIP Co de Phone Number [facility] [place] [address] documented in this encounter Visit Diagnoses Not on filedocumented in this encounter Care Teams Clinical Orthoptist Relationship Specialty Start Date End Date Robson Robles MD [phone] [facility] [place] [address] PCP - General 03/18/15 08/22/19 documented as of this encounter
--- OUTSIDE RECORDS SUMMARY | 2024-05-24 19:30 | XMS_ITS | Encounter Summary ---
Author Organization [facility] [place] [address] Care Team Providers Care Cisco Unified Communications Engineer Name Role Phone Alfredo Montoya DO Primary Care Provider [phone] Encounter Details Date Type Department Care Team (Late st Contact Info) Description 02/29/2020 10:30 AM EDT Office Visit Radiation Oncology at [address] [place] [address] Que Evans MD [address] [place] [address] DR [place] [address] Malignant neoplasm of prostate Social [...] Sign Reading Time Taken Comments Blood Pressure 126/67 02/29/2020 10:00 AM EDT Pulse 60 02/29/2020 10:00 AM EDT Temperature 36.5 ??C (97.7 ??F) 02/29/2020 1 0:00 AM EDT Respiratory Rate 16 02/29/2020 10:0 0 AM EDT Oxygen Saturation 98% 02/29/2020 10: 00 AM EDT Inhaled Oxygen Concentration - - Weight 76.6 kg (168 lb 12.8 oz) 020 10:00 AM EDT Height - - Body Mass Index 24.77 04/22/2015 1:44 PM EDT documented in this encounter Progress Notes * Que Evans MD - 02/29/2020 10:30 AM EDT Images from the original note were not included. RADIATION ONCOLOGY - Weekly On Treatment Visit Note 02/29/20 Que Evans MD, MS Radiation Oncology [facility] [phone] (paging flower machine operator) Pager #[phone] PATIENT IDENTIFICATION Name Narcisa Eduardo Date of 1945 PCP Alfredo Montoya, Referring MD (if different) Dr. 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 Started this week. GI - No diarrhea. - Nocturia 2 x/nt at baseline. 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 Baseline IPSS history is listed below. Prostate Today's Scores 01/01/2020 Sexual Health Inventory for Men 25 International Prostate Symptom Score 8 (Moderate LUTS) Pain: Pain score today is 0/10. MEDICATIONS Medications 02/29/20 1042 Medication Sig Taking? ergocalciferol, vitamin D2, (VITAMIN D ORAL) Take by mouth daily. Yes atorvastatin (Lipitor) 80 mg Tablet Take 80 mg by mouth daily. Yes multivitamin Capsule Take by mouth daily. Yes lisinopriL (Prinivil;Zestril) 10 mg Tablet Take 10 mg by mouth daily. Yes clopidogreL (Plavix) 75 mg Tablet Take 75 mg by mouth daily. Yes IMAGING I have personally reviewed this patient's interval portal imaging to confirm accurate positioning and alignment which matches the patient's original approved treatment planning images. EXAM: BP 126/67 Pulse 60 Temp 36.5 ??C (97.7 ??F) (Temporal) Resp 16 Wt 76.6 kg (168 lb 12.8 oz) SpO2 98% BMI 24.77 kg/m?? Constitutional: he appears well-developed and well-nourished. [...] radiotherapy: Tolerating as anticipated. Continue as planned. Followup: Return to clinic next week for on treatment check. documented in this encounter Plan of Treatment Upcoming Encounters Date Type Department Care Team (Late st Contact Info) Description 11/09/2024 10:30 AM EDT Office Visit Radiation Oncology at [address] [phone] Taya De La Vega PA [facility] DR [place] [address] 11/13/2024 2:00 PM EDT Office Visit Hematology/Oncology at [address] [phone] Kirt Kennedy MD [facility] DR [place] [address] Alem Lazaro APRN [address] [place] [address] DR HEMATOLOGY AND ONCOLOGY [place], [place] [id number] documented as of this encounter Visit Diagnoses Diagnosis Malignant neoplasm of prostate documented in this encounter Care Teams Cisco Unified Communications Engineer Relationship Specialty Start Date End Date Alfredo Montoya DO [address] [place] [address] PCP - General Internal Medicine 12/04/19 04/27/23 documented as of this encounter
--- OUTSIDE RECORDS SUMMARY | 2024-05-24 19:30 | XMS_ITS | Encounter Summary ---
Author Organization [facility] Address [facility] [place] [address] Care Team Providers Care Chip Machine Operator Name Role Phone Alfredo Montoya DO Primary Care Provider [phone] Encounter Details Date Type Department Care Team (Late st Contact Info) Description 08/26/2020 Ancillary Procedure Radiology Library at [facility] [place] [id number] Alfredo Montoya DO [address] [place] [address] Social History Tobacco Use Types Packs/Day Years [...] AM EDT Office Visit Radiation Oncology at [address] [phone] Taya De La Vega PA [facility] HEMATOLOGY [place] [address] 11/13/2024 2:00 PM EDT Office Visit Hematology/Oncology at [address] [phone] Kirt Kennedy MD [facility] DR HEMATOLOGY [place] [address] Alem Lazaro, CHOLO [address] [place] [address] DR [place]OLOGY [place] [address] documented as of this encounter Procedures Procedure Name Priority Date/Time Associated Diagnosis Comments FILM LIBRARY STORAGE ONLY CT HEAD AND SPINE Routine 08/26/2020 12:00 AM EST documented in this encounter Results * Film Library- Storage Only CT Head And Spine (08/26/2020 12:00 AM EST) Narrative [facility] - 10/05/2020 4:43 AM EST This exam is auto-finalizing. It's purpose is for storage only. Alfredo Montoya DO [facility] FILM LIBRARY OR DERABLES Performing Organization Address City/State/[facility] Co de Phone Number [place], [place] documented in this encounter Visit Diagnoses Not on filedocumented in this encounter Care Teams Chip Machine Operator Relationship Specialty Start Date End Date Alfredo Montoya DO [address] [place] [phone] PCP - General Internal Medicine 12/04/19 04/27/23 documented as of this encounter
--- OUTSIDE RECORDS SUMMARY | 2024-05-24 19:30 | XMS_ITS | Encounter Summary ---
Author Organization [facility] Address [facility] [place] [address] Care Team Providers Care Factory Representative Name Role Phone Robson Robles MD Primary Care Provider [phone] Encounter Details Date Type Department Care Team (Late Contact Info) Description 04/15/2015 1:10 PM EDT - 04/15/2015 11:59 PM EDT Hospital En[place] [id number] CLINIC, Eileen Lin MD [facility] DR HEMATOLOGY [place] [address] Follicular lymphoma Discharge Disposition: Home Social History Tobacco Use [...] EDT Office Visit Radiation Oncology at [address] [phone] Taya De La Vega PA [facility] DR HEMATOLOGY [place] [address] 11/13/2024 2:00 PM EDT Office Visit Hematology/Oncology at [address] [phone] Kirt Kennedy MD [facility] DR [place] [address] Alem Lazaro APRN [address] [place] [address] DR HEMATOLOGY AND ONCOLOGY [place], [place] [phone] documented as of this encounter Procedures Procedure Name Priority Date/Time Associated Diagnosis Comments NM PET CT SKULL BASE TO MID-THIGH ([facility]) Routine 04/15/2015 3:22 PM EDT Follicular lymphoma POCT GLUCOSE Routine 04/15/2015 1:40 PM EDT documented in this encounter Results * PET/CT STANDARD (Skull base to Mid-thigh) (04/15/2015 3:22 PM EDT) Anatomical Region Laterality Modality Other 04/15/2015 3:22 PM EDT Impressions 04/15/2015 5:59 PM EDT IMPRESSION: 1. ??Active lymphoma involving ajay regions in the neck, chest, abdomen, and pelvis as detailed above. 2. ??Diffusely increased marrow and splenic activity are suspicious for marrow and splenic involvement by lymphoma. 3. ??Unexpected CT finding of a 36 mm infrarenal abdominal aortic aneurysm. 4. ??Indeterminate 15 mm non-FDG avid hypodense lesion in the lateral aspect of the left kidney. Consider further evaluation with ultrasound. Thank you for referring this patient to [facility]. This report was reviewed by Daren Davis at 04/15/2015 5:54 PM Film and interpretation reviewed by the attending Narrative 04/15/2015 5:59 PM EDT EXAMINATION: PET/CT STANDARD (Skull base to Mid-thigh) CLINICAL HISTORY: staging lymphoma TECHNIQUE: Procedure: Following IV injection of 37-caqtjg-1-deoxyglucose (FDG) a standard uptake of approximately 60 minutes, a noncontrast CT scan followed by a PET scan were acquired from the base of the skull to mid thighs. The noncontrast CT was used for anatomic localization and photon attenuation correction of the PET scan. Blood glucose level: 103 (mg/dL) FDG dose: 11.1 mCi COMPARISON: CT chest 03/08/2015. FINDINGS: HEAD/NECK: There are numerous enlarged hypermetabolic lymph nodes in the bilateral upper and lower neck. Normal activity in all other soft tissue regions of the neck and visualized lower head. There is a non-FDG avid bilateral maxillary sinus opacification. CHEST: There are numerous small hypermetabolic lymph nodes in the bilateral supraclavicular, axillary, superior mediastinal, right paratracheal, and bilateral hilar regions. Normal activity in all other soft tissue regions. Tiny calcified granuloma is present in the right lung apex. ABDOMEN/PELVIS: There are numerous enlarged hypermetabolic lymph nodes in the kayce hepatis, periaortic, bilateral common/external/internal iliac, and inguinal ajay regions. There is diffusely increased FDG activity in the spleen, suspicious for lymphoma. A 36 mm infrarenal abdominal aortic aneurysm is present (axial image 146). Normal activity in all other soft tissue regions. There is a 15 mm non-FDG avid ill-defined hypodense lesion in the lateral aspect of the left kidney (axial image 141). Nonobstructing gallstone is seen in the gallbladder neck. SKELETON/EXTREMITIES: There is diffusely increased marrow activity greater than the liver. Procedure Note Daren Davis MD - 04/15/2015 EXAMINATION: PET/CT STANDARD (Skull base to Mid-thigh) CLINICAL HISTORY: staging lymphoma TECHNIQUE: Procedure: Following IV injection of 74-rzvwwv-2-deoxyglucose(FDG) a standard uptake of approximately 60 minutes, a noncontrast CT scanfollowed by a PET scan were acquired from the base of the skull to mid thighs. Thenoncontrast CT was used for anatomic localization and photon attenuation correction ofthe PET scan. Blood glucose level: 103 (mg/dL) FDG dose: 11.1 mCi COMPARISON: CT chest 03/08/2015. FINDINGS: HEAD/NECK: There are numerous enlarged hypermetabolic lymph nodes in the bilateralupper and lower neck. Normal activity in all other soft tissue regions of theneck and visualized lower head. There is a non-FDG avid bilateral maxillary sinus opacification. CHEST: There are numerous small hypermetabolic lymph nodes in the bilateral supraclavicular, axillary, superior mediastinal, right paratracheal, and bilateral hilar regions. Normal activity in all other soft tissue regions.Tiny calcified granuloma is present in the right lung apex. ABDOMEN/PELVIS: There are numerous enlarged hypermetabolic lymph nodes in the portahepatis, periaortic, bilateral common/external/internal iliac, and inguinal ajay regions. There is diffusely increased FDG activity in the spleen,suspicious for lymphoma. A 36 mm infrarenal abdominal aortic aneurysm is present (axialimage 146). Normal activity in all other soft tissue regions. There is a 15 mm non-FDG avid ill-defined hypodense lesion in the lateralaspect of the left kidney (axial image 141). Nonobstructing gallstone is seen inthe gallbladder neck. SKELETON/EXTREMITIES: There is diffusely increased marrow activity greater than the liver. IMPRESSION IMPRESSION: 1. Active lymphoma involving ajay regions in the neck, chest, abdomen,and pelvis as detailed above. 2. Diffusely increased marrow and splenic activity are suspicious formarrow and splenic involvement by lymphoma. 3. Unexpected CT finding of a 36 mm infrarenal abdominal aorticaneurysm. 4. Indeterminate 15 mm non-FDG avid hypodense lesion in the lateralaspect of the left kidney. Consider further evaluation with ultrasound. Thank you for referring this patient to [facility]. This report was reviewed by Daren Davis at 04/15/2015 5:54 PM Film and interpretation reviewed by the attending Eileen Cheung MD IMG PET ORDERABL ES * POCT Glucose (04/15/2015 1:40 PM EDT) Glucose, POC 103 65 - 199 mg/dL HAFSA BARDALES Comment: Supplemental ranges: <140 mg/dL before meals <180 mg/dL all other times of the day Blood specimen (specimen) 04/15/2015 1:40 PM EDT 04/15/2015 1:40 PM EDT Eileen Cheung MD POINT OF CARE [facility] ORDERABLES HAFSA BARDALES documented in this encounter Visit Diagnoses Diagnosis Follicular lymphoma Nodular lymphoma, unspecified site, extranodal and solid organ sites documented in this encounter Administered Medications Inactive Administered Medications - up to 3 most recent administrations Medication Order MAR Action Action Date Dose Rate Site iohexol (OMNIPAQUE) 350 mg/mL solution 17,500 mg 17,500 mg (50 mL), Oral, ONCE PRN, 1 dose, Starting on Wed04/15/15 at 1411, Until Wed04/15/15 at 1412, Per Protocol, Routine Given 04/15/2015 2:12 PM EDT 17,500 mg documented in this encounter Care Teams Factory Representative Relationship Specialty Start Date End Date Robson Robles MD [address] [place] [address] PCP - General 03/18/15 08/22/19 documented as of this encounter
--- OUTSIDE RECORDS SUMMARY | 2024-05-24 19:30 | XMS_ITS | Encounter Summary ---
Author Organization [facility] Address [facility] [place] [address] Care Team Providers Care Bulb Tester Name Role Phone Alfredo Montoya DO Primary Care Provider [phone] Encounter Details Date Type Department Care Team (Late st Contact Info) Description 02/14/2020 10:40 AM EDT Ancillary Procedure Radiology Library [place] [address] Alfredo Montoya, [address] [place] [address] Social History Tobacco Use Types Packs/Day Years [...] EDT Office Visit Radiation Oncology at [address] [phone] Taya De La Vega PA [facility] HEMATOLOGY [place] [address] 11/13/2024 2:00 PM EDT Office Visit Hematology/Oncology at [address] [phone] Kirt Kennedy MD [facility] DR HEMATOLOGY [place] [address] Alem Lazaro APRN [address] [place] [address] [place] [address] documented as of this encounter Procedures Procedure Name Priority Date/Time Associated Diagnosis Comments FILM LIBRARY STORAGE ONLY MR PELVIS Routine 02/14/2020 10:39 AM EDT documented in this encounter Results * Film Library- Storage Only MR Pelvis (02/14/2020 10:39 AM EDT) Narrative [facility] - 02/14/2020 10:39 AM EDT This exam is auto-finalizing. It's purpose is for storage only. Alfredo Montoya DO IMG FILM LIBRARY OR DERABLES Performing Organization Address City/State/[facility] Co de Phone Number [place], [place] documented in this encounter Visit Diagnoses Not on filedocumented in this encounter Care Teams Bulb Tester Relationship Specialty Start Date End Date Alfredo Montoya DO [address] [place] [address] PCP - General Internal Medicine 12/04/19 04/27/23 documented as of this encounter
--- OUTSIDE RECORDS SUMMARY | 2024-05-24 19:30 | XMS_ITS | Encounter Summary ---
Author Organization [facility] [place] [address] Care Team Providers Care Spar Machine Operator Helper Name Role Phone Alfredo Montoya DO Primary Care Provider [phone] Encounter Details Date Type Department Care Team (Late st Contact Info) Description 03/07/2020 10:00 AM EDT Office Visit Radiation Oncology at [address] [phone] Que Evans MD [address] [place] [address] DR RADIATION ONCOLOGY [place], [place] [id number] Malignant neoplasm of prostate Social History Tobacco [...] Progress Notes * Que Evans MD - 03/07/2020 10:00 AM EDT Images from the original note were not included. RADIATION ONCOLOGY - Weekly On Treatment Visit Note 03/07/20 Que Evans MD, MS Radiation Oncology [facility] [phone] (paging graphite mill operator) Pager #[phone] PATIENT IDENTIFICATION Name Narcisa Eduardo Date of 1945 PCP Alfredo Montoya DO Referring MD (if different) Dr. 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 GI - No diarrhea. - Nocturia 2 x/nt at baseline, no nocturia at all the past few nights. 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 multivitamin Capsule Take by mouth daily. lisinopriL (Prinivil;Zestril) 10 [...] EDT Office Visit Radiation Oncology at [address] [phone] [address] [facility] DR [place] [address] 11/13/2024 2:00 PM EDT Office Visit Hematology/Oncology at [address] [phone] [facility] DR [place] [address] Alem Lazaro, [address] HEMATOLOGY AND ONCOLOGY [place], [place] [address] documented as of this encounter Visit Diagnoses Diagnosis Malignant neoplasm of prostate documented in this encounter Care Teams Spar Machine Operator Helper Relationship Specialty Start Date End Date Alfredo Montoya DO [address] [place] [id number] PCP - General Internal Medicine 12/04/19 04/27/23 documented as of this encounter
--- OUTSIDE RECORDS SUMMARY | 2024-05-24 19:30 | XMS_ITS | Encounter Summary ---
Author Organization [facility] [place] [address] Care Team Providers Care Residential Collections Name Role Phone Alfredo Montoya DO Primary Care Provider [phone] Encounter Details Date Type Department Care Team (Late st Contact Info) Description 02/12/2020 Telephone Radiation Oncology at [address] [phone] Krystle Becerra RN Social History Tobacco Use Types Packs/Day [...] encounter Miscellaneous Notes * Telephone Encounter - Krystle Duarte RN - 02/12/2020 4:26 PM EDT Attempted additional call to complete gold coil follow up without success. Left voicemail * Telephone Encounter - Krystle Duarte RN - 02/12/2020 10:50 AM EDT Procedure: Placement of Gold Coil Fiducials Date of Procedure: ??02/09/20 Message left on answering machine Section Radiation Oncology [facility] documented in this encounter Plan of Treatment Upcoming Encounters Date Type Department Care Team (Late st Contact Info) Description 11/09/2024 10:30 AM EDT Office Visit Radiation Oncology at [address] [phone] Taya De La Vega PA [facility] DR [place] [address] 11/13/2024 2:00 PM EDT Office Visit Hematology/Oncology at [address] [phone] Kirt Kennedy MD [facility] DR [place] [address] Alem Lazaro APRN [address] [place] [address] DR HEMATOLOGY AND ONCOLOGY [place], [place] [phone] documented as of this encounter Visit Diagnoses Not on filedocumented in this encounter Care Teams Residential Collections Relationship Specialty Start Date End Date Alfredo Montoya DO [address] [place] [address] PCP - General Internal Medicine 12/04/19 04/27/23 documented as of this encounter
--- OUTSIDE RECORDS SUMMARY | 2024-05-24 19:30 | XMS_ITS | Encounter Summary ---
Author Organization [facility] Address [facility] [place] [address] Care Team Providers Care Video Surveillance Technician Name Role Phone Alfredo Montoya DO Primary Care Provider [phone] Encounter Details Date Type Department Care Team (Late Contact Info) Description 07/15/2020 Orders Only Radiation Oncology at [address] [phone] Que Evans MD [address] [place] [address] [place] [address] Malignant neoplasm of prostate Social History Tobacco Use Types Packs/Day Years Used Date Smoking Tobacco: Every Day Cigarettes 1 60.8 Started: 1963 Smokeless Tobacco: Never Alcohol Use Standard Drinks/Week Comments Not Currently [...] AM EDT Office Visit Radiation Oncology at [address] [phone] Taya De La Vega PA [facility] DR [place] [address] 11/13/2024 2:00 PM EDT Office Visit Hematology/Oncology at [address] [phone] Kirt Kennedy MD [facility] DR [place] [address] Alem Lazaro APRN [address] [place] [address] DR [place] [address] documented as of this encounter Visit Diagnoses Diagnosis Malignant neoplasm of prostate documented in this encounter Care Teams Video Surveillance Technician Relationship Specialty Start Date End Date Alfredo Montoya DO [address] [place] [address] PCP - General Internal Medicine 12/04/19 04/27/23 documented as of this encounter
--- OUTSIDE RECORDS SUMMARY | 2024-05-24 19:30 | XMS_ITS | Encounter Summary ---
Author Organization [facility] Address [facility] [place] [address] Care Team Providers Care Tacking Machine Operator Name Role Phone Alfredo Montoya DO Primary Care Provider [phone] Reason for Visit * Consultation (Routine) - Closed Specialty Diagnoses / Procedures Referred By Rogers t Referred To Contact Radiation Oncology Diagnoses Prostate cancer Prostate Cancer Procedures Treatment Options Estela Thomas MD [facility] [place] [address] Que Evans MD [address] [place] [address] [place] [address] Referral ID Status Reason Start Date Expiration Date Visits Re quested Visits Authorized [id number] Closed 12/01/2019 05/29/2020 1 1 Encounter Details Date Type Department Care Team (Late st Contact Info) Description 01/08/2020 9:00 AM EDT TH Visit (TeleHealth) Radiation Oncology at [address] [phone] Que Evans MD [address] [place] [address] [place] [address] Malignant neoplasm of prostate Social [...] * Patient Instructions* Que Evans MD - 01/08/2020 9:00 AM EDT Dear Mr. Eduardo, Dr. Thomas at the [place] asked for me to see you to discuss how radiation therapy can be used to treat your prostate cancer and this note is to recap our discussion regarding use of radiation treatments. As your radiation oncologist, I work closely with your other healthcare providers and most importantly, with you to make sure that the treatments we discuss and offer keep your personal preferences and goals in mind. We discussed the following next steps as [...] your prostate cancer looks under the microscope). Juncos scores for cancer range from 6-10, and [...] shorter course and while safe in the long-term it might be associated with slightly higher [...] in reducing radiation injury to the rectum. It is important to note, however, that Medicare has recently officially refused to pay for this procedure which can cost up to $4000 in our region (it does pay for it in other parts of the country). Because of this issue, a law firm will appeal any bills that you might receive, to a health counselor. In most cases, we have been told, the bills are waived and Medicare is ordered to make the payment. These procedures will be performed here in our clinic, and our nursing team will provide you instructions with how to prepare yourself. It takes approximately 2 hours from when you arrive to when youleave the building. 4. Radiation Therapy and Planning: [...] of completion radiation. 6. SIDE EFFECTS - Senior Living: These can include be permanent damage of the radiated tissues, including the rectum/bowel, bladder, prostate and surrounding tissues. Potential serious injury is rare, but can include poor wound healing, bleeding, or destruction of healthy tissue that may require surgery to repair and may result in a colostomy (bag for defecation) or urostomy (bag for urination). There may be a slow, director long term care decrease in your sexual function as well, [...] but is something to be aware of. 7. Hormone therapy: For unfavorable intermediate risk prostate cancers such as yours, I recommend acourse of anti-testosterone therapy for 6 months (typically starting 2 months before radiation, continuing for 2 months during radiation and ongoing after radiation is completed). This is usually given as a shot that lasts for 3 months at a time. The reason we recommend this is that the male hormone testosterone is used by prostate cancer as a fuel. By decreasing the body's production of testosterone, we can 'starve' the prostate cancer. The main side effects of hormone therapy include hot flashes, night sweats, weight gain, depressed mood, loss of sexual interest and impotence. There is alsoa very low risk of heart attack among men who have recently had a heart attack. These side effects usually reverse within 3-6 months of stopping the hormone therapy when testosterone recovers, although it can take up to a full year. During your radiation treatments we would also give you a pill to take once a day called Casodex (bicaluatamide) that blocks the effect of testosterone in the body. You should start taking this on the same day as your first injection of anti- testosterone shot (today, if you like.) Please do not hesitate to call me at [phone] with any other questions or concerns you have. IfI am not here, one of our radiation oncology nurses can assist you or help you get in touch with me. A Radiation Oncology doctor is also termite control representative after our normal hours and on weekends for urgent questions or concerns related to radiation treatments that can not wait until normal business hours. To reach the on-call doctor after-hours, just call and have the berry picker machine operator page the Radiation Oncologist termite control representative. And, as always, if you experience any [...] 7. Uncontrollable bleeding Que Head MD, MS Testing Lead of Radiation Oncology [facility] documented in this encounter Progress Notes * Que Evans MD - 01/08/2020 9:00 AM EDT Images from the original note were not included. Radiation Oncology Prostate Cancer Telephone Consult Note Que Evans MD, MS [facility] [phone] TELE-CONSULTATION DESCRIPTION Based on the recommendations from the [facility] in the setting of the COVID19 pandemic, we are working to minimize patient exposure in our medical center. All patients not requiring urgent procedures or physical examination are eligible for either a postponement in visit, or as medically indicated, visits may be offered by telemedicine (either video or phone consultation). This consultation has been reviewed by appropriate clinical staff and has been deemed appropriate for a TeleConsultation at this time. Type of Visit: Phone (i.e. audio only) Location of Patient: Home Additional members present for call: none Location of Provider (myself): Office PATIENT IDENTIFICATION: PATIENT NAME: Narcisa Eduardo DATE OF : 1945 REFERRING PROVIDER: Alfredo Montoya DO [address] [place] [address] REASON FOR CONSULTATION : Cancer Staging Malignant neoplasm of prostate Staging form: Prostate, AJCC 8th Edition - Clinical: Stage IIC (cT1c, cN0, cM0, PSA: 12.9, Grade Group: 3) - Signed by Que Evans MD on 01/05/2020 HISTORY OF PRESENT ILLNESS: Narcisa Eduardo is a 74 y.o. 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 Presenting Symptoms / Duration: ePSA; per pt he has had ERIKA in past that did not show any nodules Prior consultations / recommendations: Dr Thomas - [facility] - 12/01/19 - options of , RP, RT reviewed. Patient interested in learning more about RT. Referral placed. PSA History: 11/03/19 - 12.9 Pathology Results / Location: TRUS Bx 11/23/19 ([facility]) - Gl 4+3 x 1 - Left Gl 3+4 x 3 - Bilat Gl 3+3 x 2 - Bilat Pertinent Imaging Studies: TRUS 11/23/19 - 46 cc gland Prior to starting today's phone consultation, I informed Narcisa that this does constitute a billablevisit, and that [facility] [place] a [place] to his insurer. He provided verbal consent to proceed with the consultation documented above. REVIEW OF SYSTEMS: REVIEW OF SYSTEMS 01/01/2020 Constitutional None of the above Ear / nose / throat / mouth None of the above Eyes None of the above Respiratory None of the above Cardiovascular None of the above Gastrointestinal None of the above Skin, hair None of the above Musculoskeletal None of the above Neurological None of the above Hematologic / Lymphatic Easy bruising or bleeding Genitourinary Frequent urination A comprehensive 14 point review of systems was conducted with this patient and is otherwise negative except as documented above. Baseline RISHABH and IPSS are as below: Prostate Scores and Responses 01/01/2020 Confidence, level - past 6 months Very High Penetration - past 6 months Almost always or always Penetration, maintain - past 6 months Almost always or always Erection, maintain - past 6 months Not difficult Sexual satisfaction - past 6 months Almost always or always Sexual Health in Men 25 Incomplete emptying About half the time Frequency Less than 1 time in 5 Intermittency Not at all Urgency Less than 1 time in 5 Weak Stream Less than 1 time in 5 Straining Not at all Nocturia 2 times Quality of life Mixed - about equally satisfied and dissatisfied Total IPSS Score 8 (MODERATE LUTS) EPIC-PC Responses 01/01/2020 Urinary Incontinence Symptom Score 3 Urinary Irritation/Obstructive Symptom Score 2 Bowel Symptom Score 0 Vitality/Hormonal Symptom Score 0 Overall Prostate Cancer QOL Score 5 Urinary function problem Very small problem Urinary control Occasional dribbling # of pads used per day One pad per Day Urinary dripping/leakage problem Very small problem Pain or burning with urination No problem Weak urine stream/incomplete bladder emptying Very small problem Need to urinate frequently Very small problem Rectal pain or urgency of bowel movements No problem Increased frequency of your bowel movements No problem Overall problems with your bowel movements No problem Bloody stools No problem Ability to reach orgasm Very good Quality of your erections Firm enough for intercourse Problem with sexual function or lack of it No problem Hot flashes or breast tenderness/enlargement No problem Feeling depressed No problem Lack of energy No problem PAST MEDICAL HISTORY (per the medical record - not updated today) Past Medical History: Diagnosis Date ??? AAA (abdominal aortic aneurysm) ??? CVA (cerebral vascular accident) 09/28/2019 ??? EtOH dependence h/o quit 09/2019 after stroke ??? HTN (hypertension) ??? Nicotine dependence ??? 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 Thoracic aortic aneurysm Past Surgical History: Procedure Laterality Date ??? COLONOSCOPY [address] [facility] Dr Ko ??? PROSTATE BIOPSY 11/23/2019 CONTRAINDICATIONS TO RADIATION THERAPY: None ?? Prior radiation therapy: No ?? Active Lupus: No ?? Systemic Scleroderma: No MEDICATIONS / ALLERGIES (per the medical record - not reviewed/updated with the patient): Medications 01/08/20 0845 Medication Sig Taking? ergocalciferol, vitamin D2, (VITAMIN D ORAL) Take by mouth daily. Yes atorvastatin (Lipitor) 80 mg Tablet Take 80 mg by mouth daily. Yes multivitamin Capsule Take by mouth daily. Yes clopidogreL (Plavix) 75 mg Tablet Take 75 mg by mouth daily. Yes atenolol (TENORMIN) 25 mg Tablet Take 25 mg by mouth daily. Yes acetaminophen (Tylenol) 325 mg Tablet Take 650 mg by mouth. lisinopriL (Prinivil;Zestril) 10 mg Tablet Take 10 mg by mouth daily. Allergies Allergen Reactions ??? Contrast [Iodine And Iodide Containing Products] Hives TODAY'S PERFORMANCE STATUS per today's conversation: KPS Score ECOG Grade Definition X 90-100 [...] selfcare; totally confined to bed or chair ASSESSMENT / PLAN: Narcisa Eduardo is a 74 y.o. 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 Today we reviewed the risks, benefits, rationale, implications and alternatives of the various management options. Fortunately he was well informed regarding these options, especially the surgical approach by Dr. Thomas, so we spent the remainder of the discussion focusing on radiation therapy. Briefly, though, we reviewed his three major options, which include radical prostatectomy, radiation therapy, and active surveillance with delayed curative intent. Active surveillance was not reviewed in detail, given the presence of primary Allie 4 disease. Brachytherapy boost was reviewed but he declined given toxicity profile. With regard to his radiation options, we reviewed standard fractionated pelvic and prostate RT, as well as a hypofractionated approach. We discussed that there is less collective experience with the latter in terms of efficacy and that in the short term there may be increased toxicity. In the short term, I reviewed the common irritative bowel and bladder side effects associated with all forms of radiotherapy. In the long-term, I explained there is an approximately 2% chance of serious bladder or rectal toxicity as well as a very low risk of inducing a secondary malignancy. I alsoreviewed that with radiation there are few reliable salvage curative options. Logistics of external beam treatment were also reviewed, including the role of fiducial marker placement with or without spaceOAR hydrogel placement, simulation, and treatment. I also reviewed the role of short-term ADT and side effects associated with this treatment. He understands there is a survival benefit when ADT is added to radiotherapy, and that side effects can include diminished libido, hot flashes, weight gain, mood swings, depression and/or osteoporosis. Clinical trials were also reviewed briefly. He is not a candidate for any currently open trials at [facility]. On balance, Narcisa wishes to review his treatment options with this . He seems inclined towards standard fractionated RT as a definitive modality, without ADT. He plans to contact us once he makesa decision. All of his questions were answered to his satisfaction, and we have provided him with our contact information should any further questions or concerns arise. SUMMARY OF PLAN / RECOMMENDATION: 1. Intent of therapy: Curative 2. Clinical Trial Availability: No 3. Await pt decision QUE EVANS MD, MS documented in this encounter Plan of Treatment Upcoming Encounters Date Type Department Care Team (Late st Contact Info) Description 11/09/2024 10:30 AM EDT Office Visit Radiation Oncology at [address] [phone] Taya De La Vega PA [facility] [place] [address] 11/13/2024 2:00 PM EDT Office Visit Hematology/Oncology at [address] [phone] Kirt Kennedy MD [facility] DR [place] [address] Alem Lazaro APRN [address] [place] [address] [place] [address] documented as of this encounter Visit Diagnoses Diagnosis Malignant neoplasm of prostate documented in this encounter Care Teams Tacking Machine Operator Relationship Specialty Start Date End Date Alfredo Montoya DO [address] [place] [id number] PCP - General Internal Medicine 12/04/19 04/27/23 documented as of this encounter
--- OUTSIDE RECORDS SUMMARY | 2024-05-24 19:30 | XMS_ITS | Encounter Summary ---
Author Organization [facility]ly [facility] [place] [address] Care Team Providers Care Visual Associate Name Role Phone Alfredo Montoya DO Primary Care Provider [phone] Encounter Details Date Type Department Care Team (Late Contact Info) Description 01/11/2020 Telephone Radiation Oncology at [address] [phone] Feliciano Almaraz Social History Tobacco Use Types Packs/Day Years [...] AM EDT Office Visit Radiation Oncology at [address] [phone] Taya De La Vega PA [facility] HEMATOLOGY [place] [address] 11/13/2024 2:00 PM EDT Office Visit Hematology/Oncology at [address] [phone] Kirt Kennedy MD [facility] DR HEMATOLOGY [place] [address] Alem Lazaro APRN [address] [place] [address] [place] [address] documented as of this encounter Visit Diagnoses Not on filedocumented in this encounter Care Teams Visual Associate Relationship Specialty Start Date End Date Alfredo Montoya DO [address] [place] [id number] PCP - General Internal Medicine 12/04/19 04/27/23 documented as of this encounter
--- OUTSIDE RECORDS SUMMARY | 2024-05-24 19:30 | XMS_ITS | Encounter Summary ---
Author Organization [facility] Address [facility] [place] [address] Care Team Providers Care Configuration Management Manager Name Role Phone Alfredo Montoya DO Primary Care Provider [phone] Encounter Details Date Type Department Care Team (Late st Contact Info) Description 07/26/2020 3:15 PM EST Office Visit Radiation Oncology at [address] [phone] Ashley Wong APRN [facility] [place] [address] Malignant neoplasm of prostate Social History Tobacco [...] Sign Reading Time Taken Comments Blood Pressure 110/78 07/26/2020 3:07 PM EST Pulse 71 07/26/2020 3:07 PM EST Temperature 35.8 ??C (96.5 ??F) 07/26/2020 3:07 PM ES T Respiratory Rate 16 07/26/2020 3:07 PM EST Oxygen Saturation 100% 07/26/2020 3:07 PM EST Inhaled Oxygen Concentration - - Weight 66.7 kg (147 lb) 07/26/2020 3:07 PM EST Height 175 cm (5' 8.9) 07/26/2020 3:07 PM EST Body Mass Index 21.77 07/26/2020 3:07 PM EST documented in this encounter Patient Instructions * Patient Instructions* Ashley Wong APRN - 07/26/2020 3:15 PM EST He will return in 3 months with labs prior for followup documented in this encounter Progress Notes * Ashley Wong APRN - 07/26/2020 3:15 PM EST Images from the original note were not included. RADIATION ONCOLOGY - Follow up Visit Ashley Wong MS FLOORS BUFFER Radiation Oncology [facility] PATIENT IDENTIFICATION ?? Name Narcisa Eduardo Date of 1945 ? PCP Alfredo Montoya, DO Referring MD (if different) Dr. Martha Montoya ([place]) ? 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 HISTORY OF PRESENT ILLNESS: Narcisa Eduardo is a 74 y.o. 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 ?? Presenting Symptoms / Duration: ePSA; per pt he has had ERIKA in past that did not show any nodules ?? Prior consultations / recommendations: Dr Thomas - [facility] - 12/01/19 - options of , RP, RT reviewed. Patient interested in learning more about RT. Referral placed. ?? PSA History: 11/03/19 - 12.9 ?? Pathology Results / Location: TRUS Bx 11/23/19 ([facility]) - Gl 4+3 x 1 - Left Gl 3+4 x 3 - Bilat Gl 3+3 x 2 - Bilat ?? Pertinent Imaging Studies: TRUS 11/23/19 - 46 cc gland NEOADJUVANT / CONCURRENT THERAPY: Declined ?? INTENT [...] Start Date End Date 02/27/20 04/26/20 ?? Allergies Allergen Reactions ??? Contrast [Iodine And Iodide Containing Products] Hives Current Outpatient Medications on File Prior to Visit Medication Sig Dispense Refill ??? levETIRAcetam (KEPPRA) 750 mg Tablet TAKE ONE TABLET BY MOUTH TWICE A DAY ??? potassium chloride ER (K-Dur/Klor-Con) 10 mEq Tablet Sustained Release TAKE ONE TABLET BY MOUTHEVERY DAY TO SUPPLEMENT POTASSIUM ??? ergocalciferol, vitamin D2, (VITAMIN D ORAL) Take by mouth daily. ??? atorvastatin (Lipitor) 80 mg Tablet Take 80 mg by mouth daily. ??? lisinopriL (Prinivil;Zestril) 10 mg Tablet Take 10 mg by mouth daily. ??? clopidogreL (Plavix) 75 mg Tablet Take 75 mg by mouth daily. No current facility-administered medications on file prior to visit. Interim history This is a routine followup for Narcisa after completing radiation therapy for his prostate cancer. Hestates that he is disappointed that his energy has not returned yet. He was hoping that he would feel better. He states that he continues to wear depends for his incontinence. He is having more problems with constripation than he did previously. He takes metamucil intermittently. He continues to lose weight since his last visit. He is down about 20 lb since February. He has no good explanation for his weight loss except he is not eating as well as he used to. On July 13 his found him on the floor. He was confused at first but this improved quickly. He went to the ER at [facility]. He had both stool and urine incontinence. He stated thathe was working on the computer and his eyes started rolling and flckering and then he lost consciousness. His bloodwork was essentially unremarkable K+ 3.2 and Na 35 Urine showed ketones. He had a CTscan of his head done that did not show emboli, infarct or bleed. He was started on keppra and admitted overnight. He was discharged the next day and just had an EEG done and will see Dr Garcia in the next few days. He has not had a recurrence of these symptoms. ROS is otherwise negative Physical Exam Temp: [35.8 ??C (96.5 ??F)] Heart Rate: [71] Resp: [16] BP: (110)/(78) SpO2: [100 %] Heart Rate from SpO2: -- Alert oriented and in good spirits Heart regular rhythm and rate Lungs clear to auscultation Abdomen soft nontender active bowel sounds. 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 ??He declined ADT. He is here for a 3 month followup. His PSA is much lower than prior to treatment. He tolerated treatment well with the exception of fatigue which he continues to experience. He does have some issues with constipation since treatment. He has also lost about 20 lb since February of this year. He states that he is no longer drinking beer which accounted for some of his weight loss. Hewas recently hospitalized (07/13/20) for a possible seizure. (See above) He is currently on Keppra and has had no recurrence of the symptoms. He will be seeing the neurologist in the next 2 weeks forfurther evaluation. Constipation- we discussed the regular use of metamucil and/or miralax to keep his bowels regular. Weight loss- discussed several ways to increase his caloric intake. We will continue to monitor his weight and PSA. He will return in 3 months with labs prior. documented in this encounter Plan of Treatment Upcoming Encounters Date Type Department Care Team (Late st Contact Info) Description 11/09/2024 10:30 AM EDT Office Visit Radiation Oncology at [address] [phone] Taya De La Vega PA [facility] DR [place] [address] 11/13/2024 2:00 PM EDT Office Visit Hematology/Oncology at [address] [phone] Kirt Kennedy MD [facility] DR [place] [address] Alem Lazaro APRN [address] [place] [address] [place] [address] documented as of this encounter Visit Diagnoses Diagnosis Malignant neoplasm of prostate documented in this encounter Care Teams Configuration Management Manager Relationship Specialty Start Date End Date Alfredo Montoya DO [address] [place] [id number] PCP - General Internal Medicine 12/04/19 04/27/23 documented as of this encounter
--- OUTSIDE RECORDS SUMMARY | 2024-05-24 19:30 | XMS_ITS | Encounter Summary ---
Author Organization [facility] [place] [address] Care Team Providers Care Train Braker Name Role Phone Alfredo Montoya DO Primary Care Provider [phone] Encounter Details Date Type Department Care Team (Late st Contact Info) Description 03/14/2020 9:45 AM EDT Office Visit Radiation Oncology at [address] [place] [phone] Que Evans MD [address] [place] [address] [place] [address] Malignant neoplasm of prostate Social [...] Sign Reading Time Taken Comments Blood Pressure 120/75 03/14/2020 9:00 AM EDT Pulse 66 03/14/2020 9:00 AM EDT Temperature 36.3 ??C (97.3 ??F) 03/14/2020 9:00 AM ED T Respiratory Rate 16 03/14/2020 9:00 AM EDT Oxygen Saturation 99% 03/14/2020 9:00 AM EDT Inhaled Oxygen Concentration - - Weight 74.2 kg (163 lb 9.6 oz) 03/14/2020 9:00 A M EDT Height - - Body Mass Index 24.01 04/22/2015 1:44 PM EDT documented in this encounter Progress Notes * Que Evans MD - 03/14/2020 9:45 AM EDT Images from the original note were not included. RADIATION ONCOLOGY - Weekly On Treatment Visit Note 03/14/20 Que Evans MD, MS Radiation Oncology [facility] [phone] (paging plasma processing centrifuge operator) Pager #[phone] PATIENT IDENTIFICATION Name Narcisa Eduardo Date of [...] 79.2 Gy in 44 fractions Current Dose: 23.4 Gy in 13 fractions INTERVAL HISTORY Subjective: General - Overall feels fair today. GI - Constipated and lots of gas. We are seeing the latter on his daily imaging CBCT. - Nocturia 0-2 x/nt at baseline, up 4x the past few nights. 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 Baseline IPSS history is listed below. Prostate Today's Scores 01/01/2020 Sexual Health Inventory for Men 25 International Prostate Symptom Score 8 (Moderate LUTS) Pain: Pain score today is 0/10. MEDICATIONS Medications 03/14/20 0959 Medication Sig Taking? ergocalciferol, vitamin D2, (VITAMIN [...] original approved treatment planning images. EXAM: BP 120/75 Pulse 66 Temp 36.3 ??C (97.3 ??F) (Temporal) Resp 16 Wt 74.2 kg (163 lb 9.6 oz) SpO2 99% BMI 24.01 kg/m?? Constitutional: he appears well-developed and well-nourished. [...] radiotherapy: Tolerating as anticipated. Continue as planned. Constipation: Rec increase water intake, start metamucil/GasX. LUTS: Rec start flomax for increased nocturia. [facility] Followup: Return to clinic next week for on treatment check. documented in this encounter Plan of Treatment Upcoming Encounters Date Type Department Care Team (Late st Contact Info) Description 11/09/2024 10:30 AM EDT Office Visit Radiation Oncology at [address] [phone] Taya De La Vega PA [facility] H[place]ATOLOGY [place] [address] 11/13/2024 2:00 PM EDT Office Visit Hematology/Oncology at [address] [phone] Kirt Kennedy MD [facility] DR HEMATOLOGY [place] [address] Alem Lazaro APRN [address] [place] [address] DR [place]EMATOLOGY [place] [address] documented as of this encounter Visit Diagnoses Diagnosis Malignant neoplasm of prostate documented in this encounter Care Teams Train Braker Relationship Specialty Start Date End Date Alfredo Montoya DO [address] [place] [id number] PCP - General Internal Medicine 12/04/19 04/27/23 documented as of this encounter
--- OUTSIDE RECORDS SUMMARY | 2024-05-24 19:30 | XMS_ITS | Encounter Summary ---
Author Organization [facility] Address [facility] [place] [address] Care Team Providers Care Crop Roller Name Role Phone Alfredo Montoya DO Primary Care Provider [phone] Encounter Details Date Type Department Care Team (Latest Contact Info) Description 04/09/2020 10:00 AM EDT Clinical Support Hematology/Oncology at [address] [phone] Malignant neoplasm [...] Progress Notes * Kristyn Johnson RD - 04/09/2020 10:00 AM EDT [facility] Dietitian Follow Up Seen By: Kristyn Johnson RD LD Referred by: Dr. Evans Patient and diagnosis: Narcisa Eduardo is a 74 y.o. year old male receiving radiation therapy for prostate cancer. HPI: Patient Active Problem List Diagnosis Code ??? 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 Malignant neoplasm of prostate C61 Meds: reviewed Estimated body mass index is 23.01 kg/m?? as calculated from the following: Height as of 04/22/15: 175.8 cm (5' 9.21). Weight as of 04/04/20: 71.1 kg (156 lb 12.8 oz). Wt Readings from Last 3 Encounters: 04/04/20 71.1 kg (156 lb 12.8 oz) 03/21/20 72.9 kg (160 lb 12.8 oz) 03/14/20 74.2 kg (163 lb 9.6 oz) 157 lbs on scale today Wt Hx: UBW: 170 lbs % UBW: IBW: +/- 10% % IBW: ___ Edema ___ Ascites ___Muscle wasting Nutrition Assessment: Food Intake: Am: first meal around 10 or 11, st lucian muffin with egg on one side and [...] or avoidances: n/a Appetite: good Bowels: reports alternating diarrhea/constipation; he tried metamucil last and states he did not have BM until Wednesday night had a large, loose BM, but not as watery; he then took imodium; hestates today he has not had BM since Wednesday; he is hoping to avoid using enema; plans to take metamucil again today Food availability/purchasing, meal planning and preparation: usually prepares dinner meal Anticipated adherence/understanding: good Nutrition Diagnosis: Increased bloating/gas, changes in bowels related to radiation therapy for prostate cancer. Nutrition Intervention: ? Reviewed/reinforced tips to help reduce bloating, including smaller more frequent meals, avoidingcaffeine on an empty stomach, avoiding common gas producing foods. ? Discussed that he might not be eating enough and encouraged adding a meal or snack; foods such asoatmeal or toast might be well tolerated in the AM ? Reinforced importance of adequate fluid intake, especially if adding fiber/metamucil ? Recommended limiting foods high in lactose, such as ice cream, milk, certain cheeses (list provided) Monitoring and Evaluation: Will follow up in 1 week. documented in this encounter Plan of Treatment Upcoming Encounters Date Type Department Care Team (Late st Contact Info) Description 11/09/2024 10:30 AM EDT Office Visit Radiation Oncology at [address] [phone] [address] V[address] [facility] DR [place] [address] 11/13/2024 2:00 PM EDT Office Visit Hematology/Oncology at [address] [phone] [facility] DR [place] [address] Alem Lazaro APRN [address] [place] [address] DR HEMATOLOGY AND ONCOLOGY [place], [place] [id number] documented as of this encounter Visit Diagnoses Diagnosis Malignant neoplasm of prostate documented in this encounter Care Teams Crop Roller Relationship Specialty Start Date End Date Alfredo Montoya DO [address] [place] [address] PCP - General Internal Medicine 12/04/19 04/27/23 documented as of this encounter
--- OUTSIDE RECORDS SUMMARY | 2024-05-24 19:30 | XMS_ITS | Encounter Summary ---
Author Organization [facility] [place] [address] Care Team Providers Care Soft Work Wrapper Examiner Name Role Phone Alfredo Montoya DO Primary Care Provider [phone] Reason for Visit * Reason Onset Date Comments Other 02/13/2020 [facility] social work assessment Encounter Details Date Type Department Care Team (Late st Contact Info) Description 02/13/2020 Telephone Hematology/Oncology at [address] [phone] Joana Roberts MSW OFFICE OF CARE MANAGEMENT Other ([facility] social work assessment) Social History Tobacco Use Types Packs/Day Years [...] encounter Miscellaneous Notes * Telephone Encounter - Joana Roberts MSW - 02/13/2020 9:26 AM EDT Reason for Referral: Brief assessment of social and emotional needs. TC pt today prior to his sim tomorrow. Social Supports: Pt identified his of 49 years as his primary support. They have 3 children. Adaughter lives in the area. The other two live out of state but keep in touch. Pt identified a friend/neighbor who is a support. Living Situation/Daily Activities/Transportation: Pt indicated he and his manage their daily chores and activities. Their daughter has us on lock down and helps with shopping and errands. Pt does not expect any issues with transportation. 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 [facility]. Advance Directives:Pt reports he has completed his advance directive and requested a copy for his medical record. [place] Status: Pt is a . Utilization of Community Resources: None at this time. Adjustment to Illness/Mental Health Issues: Pt indicated he is coping as best he can. He finished treatment for lymphoma and now is starting treatment for prostate cancer. He feels perico and supported by his family. He has recovered from a mild stroke this past September. He is expecting 44 RT treatments. Offered support. Identified Needs: Pt did not identify any specific needs at this time. Referrals: None at this time. Plan: Informed pt of VISOR INSTALLER availability and contact information as working remotely. Will follow for support and resources. documented in this encounter Plan of Treatment Upcoming Encounters Date Type Department Care Team (Late st Contact Info) Description 11/09/2024 10:30 AM EDT Office Visit Radiation Oncology at [address] [phone] Taya De La Vega PA [facility] DR [place] [address] 11/13/2024 2:00 PM EDT Office Visit Hematology/Oncology at [address] [phone] Kirt Kennedy MD [facility] DR [place] [address] Alem Lazaro APRN [address] [place] [address] DR HEMATOLOGY AND ONCOLOGY [place], [place] [phone] documented as of this encounter Visit Diagnoses Not on filedocumented in this encounter Care Teams Soft Work Wrapper Examiner Relationship Specialty Start Date End Date Alfredo Montoya DO [address] [place] [address] PCP - General Internal Medicine 12/04/19 04/27/23 documented as of this encounter
--- OUTSIDE RECORDS SUMMARY | 2024-05-24 19:30 | XMS_ITS | Encounter Summary ---
Author Organization Replaced By [facility] Address [facility] [place] [address] Care Team Providers Care Salt Miner Name Role Phone Alfredo Montoya DO Primary Care Provider [phone] Encounter Details Date Type Department Care Team (Late Contact Info) Description 12/07/2019 Telephone Radiation Oncology at [address] [phone] Meng Chauhan Social History Tobacco Use Types Packs/Day Years Used Date Smoking Tobacco: Every Day Cigarettes Sex and Gender Information Value Date Recorded Sex Assigned at Not on file Gender Identity Not on file Sexual Orientation Not on file documented as of this encounter Miscellaneous Notes * Telephone Encounter - Meng Chauhan - 12/07/2019 12:38 PM EDT Radiation Oncology New Patient Scheduling Note I called Narcisa to inform [facility] Dr. Evans for a radiation new patient consultation. I have confirmed his appointments on Sunday 01/07 will include a 60 minute visit at with Dr. Evans.He is aware that this visit will be over the phone. I confirmed our address and answered all of his questions, and our contact information should any further questions or concerns arise. documented in this encounter Plan of Treatment Upcoming Encounters Date Type Department Care Team (Late Contact Info) Description 11/09/2024 10:30 AM EDT Office Visit Radiation Oncology at [address] [phone] Taya De La Vega PA [facility] [place] [address] 11/13/2024 2:00 PM EDT Office Visit Hematology/Oncology at [address] [phone] Kirt Kennedy MD [facility] DR [place] [address] Alem Lazaro APRN [address] [place] [address] DR [place] [address] documented as of this encounter Visit Diagnoses Not on filedocumented in this encounter Care Teams Salt Miner Relationship Specialty Start Date End Date Alfredo Montoya DO [address] [place] [address] PCP - General Internal Medicine 12/04/19 04/27/23 documented as of this encounter
--- OUTSIDE RECORDS SUMMARY | 2024-05-24 19:30 | XMS_ITS | Encounter Summary ---
Author Organization [facility] [place] [address] Care Team Providers Care Brick Siding Applicator Name Role Phone Alfredo Montoya DO Primary Care Provider [phone] Encounter Details Date Type Department Care Team (Late st Contact Info) Description 03/21/2020 12:00 PM EDT Office Visit Radiation Oncology at [address] [phone] Que Evans MD [address] [place] [address] [place] [address] Malignant neoplasm of prostate Social [...] Sign Reading Time Taken Comments Blood Pressure 114/77 03/21/2020 12:00 PM EDT Pulse 66 03/21/2020 12:00 PM EDT Temperature 36.4 ??C (97.5 ??F) 03/21/2020 1 2:00 PM EDT Respiratory Rate 16 03/21/2020 12:0 0 PM EDT Oxygen Saturation 100% 03/21/2020 12: 00 PM EDT Inhaled Oxygen Concentration - - Weight 72.9 kg (160 lb 12.8 oz) 020 12:00 PM EDT Height - - Body Mass Index 23.6 04/22/2015 1:44 PM EDT documented in this encounter Progress Notes * Que Evans MD - 03/21/2020 12:00 PM EDT Images from the original note were not included. RADIATION ONCOLOGY - Weekly On Treatment Visit Note 03/21/20 Que Evans MD, MS Radiation Oncology [facility] [phone] (paging smocking machine operator) Pager #[phone] PATIENT IDENTIFICATION Name Narcisa Eduardo Date of 1945 PCP Alfredo Montoya DO Referring MD (if different) Dr. Martha Montoya ([place]) 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, Gl [...] 79.2 Gy in 44 fractions Current Dose: 32.4 Gy in 18 fractions INTERVAL HISTORY Subjective: General - Overall feels fair today. GI - Constipated and lots of gas. Did not start metamucil but developed some diarrhea. Took Imodiumw relief. - Nocturia stable at 0-2 x/nt at baseline. 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 Baseline IPSS history is listed below. Prostate Today's Scores 01/01/2020 Sexual Health Inventory for Men 25 International Prostate Symptom Score 8 (Moderate LUTS) Pain: Pain score today is 0/10. MEDICATIONS Medications 03/14/20 4828 Medication Sig Taking? ergocalciferol, vitamin D2, (VITAMIN D ORAL) Take by mouth daily. Yes atorvastatin (Lipitor) 80 mg Tablet Take 80 mg by mouth daily. Yes lisinopriL (Prinivil;Zestril) 10 mg Tablet Take 10 mg by mouth daily. Yes clopidogreL (Plavix) 75 mg Tablet Take 75 mg by mouth daily. Yes tamsulosin (Flomax) 0.4 mg Capsule Take 1 capsule by mouth nightly. Patient not taking: Reported on 03/21/2020 IMAGING I have personally reviewed this patient's interval portal imaging to confirm accurate positioning and alignment which matches the patient's original approved treatment planning images. EXAM: BP 114/77 Pulse 66 Temp 36.4 ??C (97.5 ??F) Resp 16 Wt 72.9 kg (160 lb 12.8 oz) SpO2 100% BMI 23.60 kg/m?? Constitutional: he appears well-developed and well-nourished. [...] radiotherapy: Tolerating as anticipated. Continue as planned. LUTS: Flomax rx'ed last week for increased nocturia but those symptoms seem to have stabilized. Followup: Return to clinic next week for on treatment check. documented in this encounter Plan of Treatment Upcoming Encounters Date Type Department Care Team (Late st Contact Info) Description 11/09/2024 10:30 AM EDT Office Visit Radiation Oncology at [address] [phone] Taya De La Vega PA [facility] HEMATOLOGY [place] [address] 11/13/2024 2:00 PM EDT Office Visit Hematology/Oncology at [address] [phone] Kirt Kennedy MD [facility] HEMATOLOGY [place] [address] Alem Lazaro APRN [address] [place] [address] DR [place] [address] documented as of this encounter Visit Diagnoses Diagnosis Malignant neoplasm of prostate documented in this encounter Care Teams Brick Siding Applicator Relationship Specialty Start Date End Date Alfredo Montoya DO [address] [place] [address] PCP - General Internal Medicine 12/04/19 04/27/23 documented as of this encounter
--- OUTSIDE RECORDS SUMMARY | 2024-05-24 19:30 | XMS_ITS | Encounter Summary ---
Author Organization [facility] [place] [address] Care Team Providers Care Brush Material Preparer Name Role Phone Robson Robles MD Primary Care Provider [phone] Encounter Details Date Type Department Care Team (Late st Contact Info) Description 12/07/2018 Ancillary Procedure Radiology Library at [facility] [place] [phone] Que Evans MD [address] [place] [address] DR RADIATION ONCOLOGY [place], [place] [phone] Social History Tobacco Use Types Packs/Day Years [...] EDT Office Visit Radiation Oncology at [address] [phone] Taya De La Vega PA [facility] DR HEMATOLOGY [place] [address] 11/13/2024 2:00 PM EDT Office Visit Hematology/Oncology at [address] [phone] Kirt Kennedy MD [facility] DR HEMATOLOGY [place] [address] Alem Lazaro APRN [address] [facility] [address] HEMATOLOGY [place] [address] documented as of this encounter Procedures Procedure Name Priority Date/Time Associated Diagnosis Comments FILM LIBRARY STORAGE ONLY CT CHEST ABDOMEN PELVIS Routine 12/07/2018 12:00 AM EDT documented in this encounter Results * Film Library- Storage Only CT Chest Abdomen Pelvis (12/07/2018 12:00 AM EDT) Narrative [facility] - 12/13/2019 5:24 PM EDT This exam is auto-finalizing. It's purpose is for storage only. Que Evans MD IMG FILM LIBRARY ORD ERABLES [place], [place] documented in this encounter Visit Diagnoses Not on filedocumented in this encounter Care Teams Brush Material Preparer Relationship Specialty Start Date End Date Robson Robles MD [address] [facility] [place] [address] PCP - General 03/18/15 08/22/19 documented as of this encounter
--- OUTSIDE RECORDS SUMMARY | 2024-05-24 19:30 | XMS_ITS | Encounter Summary ---
Author Organization [facility] [place] [address] Care Team Providers Care Flow Worker Name Role Phone Alfredo Montoya DO Primary Care Provider [phone] Encounter Details Date Type Department Care Team (Late st Contact Info) Description 04/04/2020 10:15 AM EDT Office Visit Radiation Oncology at [address] [place] [phone] Que Evans MD [address] [place] [address] DR RADIATION ONCOLOGY [place], [place] [phone] Malignant neoplasm of prostate Social History Tobacco [...] Sign Reading Time Taken Comments Blood Pressure 116/65 04/04/2020 10:00 AM EDT Pulse 70 04/04/2020 10:00 AM EDT Temperature 36.4 ??C (97.5 ??F) 04/04/2020 1 0:00 AM EDT Respiratory Rate 18 04/04/2020 10:0 0 AM EDT Oxygen Saturation 97% 04/04/2020 10: 00 AM EDT Inhaled Oxygen Concentration - - Weight 71.1 kg (156 lb 12.8 oz) 020 10:00 AM EDT Height - - Body Mass Index 23.01 04/22/2015 1:44 PM EDT documented in this encounter Progress Notes * Que Evans MD - 04/04/2020 10:15 AM EDT Images from the original note were not included. RADIATION ONCOLOGY - Weekly On Treatment Visit Note 04/04/20 Que Evans MD, MS Radiation Oncology [facility] [phone] (paging unit operator) Pager #[phone] PATIENT IDENTIFICATION Name Narcisa Eduardo Date of 1945 PCP Alfredo Montoya, Referring MD (if different) Dr. Martha Montoya ([place]) 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, Gl [...] 79.2 Gy in 44 fractions Current Dose: 50.4 Gy in 28 fractions INTERVAL HISTORY Subjective: General - Overall feels fair today. GI - Constipated today. Had some diarrhea over the weekend. No BM since Wednesday. - Nocturia stable at 1x/nt (vs 0-2x/nt at baseline. 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 Baseline IPSS history is listed below. Prostate Today's Scores 01/01/2020 Sexual Health Inventory for Men 25 International Prostate Symptom Score 8 (Moderate LUTS) Pain: Pain score today is 0/10. MEDICATIONS Medications 04/04/20 1040 Medication Sig Taking? ergocalciferol, vitamin D2, (VITAMIN D ORAL) Take by mouth daily. Yes atorvastatin (Lipitor) 80 mg Tablet Take 80 mg by mouth daily. Yes lisinopriL (Prinivil;Zestril) 10 mg Tablet Take 10 mg by mouth daily. Yes clopidogreL (Plavix) 75 mg Tablet Take 75 mg by mouth daily. Yes Psyllium Seed-Sucrose (0) Powder Take by mouth as needed. tamsulosin (Flomax) 0.4 mg Capsule Take 1 capsule by mouth nightly. Patient not taking: Reported on 03/21/2020 IMAGING I have personally reviewed this patient's interval portal imaging to confirm accurate positioning and alignment which matches the patient's original approved treatment planning images. EXAM: BP 116/65 Pulse 70 Temp 36.4 ??C (97.5 ??F) (Temporal) Resp 18 Wt 71.1 kg (156 lb 12.8 oz) SpO2 97% BMI 23.01 kg/m?? Constitutional: he appears well-developed and well-nourished. [...] Tolerating as anticipated. Continue as planned. Constipation: Advised that he should consider suppository or enema if no BM by end of day today, inconcern that he may develop an impaction. He wants to try bran flakes+ metamucil first, which has worked for him in the past. Followup: Return to clinic next week for on treatment check. documented in this encounter Plan of Treatment Upcoming Encounters Date Type Department Care Team (Late st Contact Info) Description 11/09/2024 10:30 AM EDT Office Visit Radiation Oncology at [address] [phone] Taya De La Vega PA [facility] [place] [address] 11/13/2024 2:00 PM EDT Office Visit Hematology/Oncology at [address] [phone] Kirt Kennedy MD [facility] DR [place] [address] Alem Lazaro APRN [address] [place] [address] DR HEMATOLOGY [place] [address] documented as of this encounter Visit Diagnoses Diagnosis Malignant neoplasm of prostate documented in this encounter Care Teams Flow Worker Relationship Specialty Start Date End Date Alfredo Montoya DO [address] [place] [address] PCP - General Internal Medicine 12/04/19 04/27/23 documented as of this encounter
--- OUTSIDE RECORDS SUMMARY | 2024-05-24 19:30 | XMS_ITS | Encounter Summary ---
Author Organization [facility] [place] [place] [address] Care Team Providers Care Carpet Cleaning Technician Name Role Phone Alfredo Montoya DO Primary Care Provider [phone] Encounter Details Date Type Department Care Team (Late Contact Info) Description 01/10/2020 Telephone Radiation Oncology at [address] [phone] Noelle Ramirez RN Social History [...] Telephone Encounter - Noelle Ramirez RN - 01/10/2020 1:53 PM EDT Radiation Oncology Nurse Telephone Note [facility] [place], [place] Patient called clinic stating that he wishes to proceed with the radiation treatments that were discussed with Dr Evans on 01/08/2020. Plan: he was informed that the next step will be for him to come to the clinic to meet with Dr Evans and go over the consent for the treatments. Our secretaries will be contacting him to arrange for the necessary appointments. Patient verbalized understanding of these instructions. documented in this encounter Plan of Treatment Upcoming Encounters Date Type Department Care Team (Late Contact Info) Description 11/09/2024 10:30 AM EDT Office Visit Radiation Oncology at [address] [phone] Taya De La Vega PA [facility] DR HEMATOLOGY [place] [address] 11/13/2024 2:00 PM EDT Office Visit Hematology/Oncology at [address] [phone] Kirt Kennedy MD [facility] DR HEMATOLOGY [place] [address] Alem Lazaro APRN [address] [place] [address] DR HEMATOLOGY AND ONCOLOGY [place], [place] [address] documented as of this encounter Visit Diagnoses Not on filedocumented in this encounter Care Teams Carpet Cleaning Technician Relationship Specialty Start Date End Date Alfredo Montoya DO [address] [place] [id number] PCP - General Internal Medicine 12/04/19 04/27/23 documented as of this encounter
--- OUTSIDE RECORDS SUMMARY | 2024-05-24 19:30 | XMS_ITS | Encounter Summary ---
Author Organization [facility] Address [facility] [place] [address] Care Team Providers Care Cruise Coordinator Name Role Phone Alfredo Montoya DO Primary Care Provider Encounter Details Date Type Department Care Team (Late Contact Info) Description 08/26/2020 6:00 PM EST Ancillary Procedure Radiology Library at [facility] [place] [phone] Que Evans MD [address] [place] [address] DR RADIATION ONCOLOGY [place], [place] [id number] Social History Tobacco Use Types Packs/Day Years [...] AM EDT Office Visit Radiation Oncology at [address] [phone] Taya De La Vega PA [facility] DR HEMATOLOGY [place] [address] 11/13/2024 2:00 PM EDT Office Visit Hematology/Oncology at [address] [phone] Kirt Kennedy MD [facility] DR HEMATOLOGY [place] [address] Alem Lazaro, [address] HEMATOLOGY AND ONCOLOGY [place], [place] [address] documented as of this encounter Procedures Procedure Name Priority Date/Time Associated Diagnosis Comments FILM LIBRARY STORAGE ONLY MR HEAD Routine 08/26/2020 5:57 PM EST documented in this encounter Results * Film Library- Storage Only MR Head (08/26/2020 5:57 PM EST) Narrative [facility] - 08/26/2020 5:57 PM EST This exam is auto-finalizing. It's purpose is for storage only. Que Evans MD IMG FILM LIBRARY ORD ERABLES [place], [place] documented in this encounter Visit Diagnoses Not on filedocumented in this encounter Care Teams Cruise Coordinator Relationship Specialty Start Date End Date Alfredo Montoya DO [address] [place] [id number] PCP - General Internal Medicine 12/04/19 04/27/23 documented as of this encounter
--- OUTSIDE RECORDS SUMMARY | 2024-05-24 19:30 | XMS_ITS | Encounter Summary ---
Author Organization [facility] [place] [address] Care Team Providers Care Refractory Repairer Name Role Phone Alfredo Montoya DO Primary Care Provider [phone] Encounter Details Date Type Department Care Team (Late st Contact Info) Description 07/30/2020 Telephone Hematology/Oncology at [address] [phone] Social History Tobacco Use Types Packs/Day Years [...] encounter Miscellaneous Notes * Telephone Encounter - Kristyn Johnson RD - 07/31/2020 9:10 AM EST Nutrition Follow Up - Phone Call Patient and diagnosis: Narcisa Eduardo is a 74 y.o. year old male s/p radiation therapy for prostate cancer. Request from Ashley Wong APRN to check in with patient regarding recent weight loss. HPI: Patient Active Problem List Diagnosis Code ??? 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 Malignant neoplasm of prostate C61 Meds: reviewed Estimated body mass index is 21.77 kg/m?? as calculated from the following: Height as of 07/26/20: 175 cm (5' 8.9). Weight as of 07/26/20: 66.7 kg (147 lb). Wt Readings from Last 3 Encounters: 07/26/20 66.7 kg (147 lb) 06/24/20 68.9 kg (151 lb 12.8 oz) 04/25/20 70.9 kg (156 lb 6.4 oz) 6% weight loss in 3 months Wt Hx: UBW: 170 lbs % UBW: IBW: +/- 10% % IBW: ___ Edema ___ Ascites ___Muscle wasting Nutrition Assessment: Food Intake: Am: first meal around 10 or 11, oatmeal with cream and maple syrup Noon: often skips Pm: pot roast and chicken pot pie are recent meals he has enjoyed Snacks: rarely snacks; occasional ice cream for dessert Fluids: one cup of coffee in AM, admits water intake is low, but trying to drink more gatorade No longer drinking beer - attributes this to some of his weight loss. Patient also reports he was recently hospitalized for possible seizure; potassium and sodium were low. Still feeling fatigued from RT. Supplements/Frequency: ___ Ensure/Plus ___ Boost/Plus ___ CIB ___ Other: Teas, vitamins, or other nutritional supplements: vitamin D2 Food allergies or avoidances: n/a Appetite: good Bowels: constipation recently; this impacts his appetite at times; plans to try miralax Nutrition Intervention: ? Discussed tips for increasing caloric intake ? Encouraged more frequent meals or snacks ? Suggested addition of CIB for added calorie and protein intake, especially if weight continues todrop ? Encouraged increasing fluid intake as well as beginning to add fiber foods slowly back into diet,which may help with bowels Monitoring and Evaluation: Encouraged patient to reach out as needed if further questions/concerns arise. documented in this encounter Plan of Treatment Upcoming Encounters Date Type Department Care Team (Late st Contact Info) Description 11/09/2024 10:30 AM EDT Office Visit Radiation Oncology at [address] [phone] Taya De La Vega PA [facility] HEMATOLOGY [place] [address] 11/13/2024 2:00 PM EDT Office Visit Hematology/Oncology at [address] [phone] Kirt Kennedy MD [facility] DR [place] [address] Alem Lazaro APRN [address] [place] [address] DR HEMATOLOGY AND ONCOLOGY [place], [place] [address] documented as of this encounter Visit Diagnoses Not on filedocumented in this encounter Care Teams Refractory Repairer Relationship Specialty Start Date End Date Alfredo Montoya DO [address] [place] [id number] PCP - General Internal Medicine 12/04/19 04/27/23 documented as of this encounter
--- OUTSIDE RECORDS SUMMARY | 2024-05-24 19:30 | XMS_ITS | Encounter Summary ---
Author Organization [facility] Address [facility] [place] [address] Care Team Providers Care Political Director Name Role Phone Alfredo Montoya DO Primary Care Provider [phone] Encounter Details Date Type Department Care Team (Latest Contact Info) Description 03/01/2020 1:00 PM EDT Clinical Support Hematology/Oncology at [address] [phone] Malignant neoplasm [...] Progress Notes * Kristyn Johnson RD - 03/01/2020 1:00 PM EDT [facility] Initial Dietitian Assessment Seen By: Kristyn Johnson RD LD Referred by: Dr. Evans Patient and diagnosis: Narcisa Eduardo is a 74 y.o. year old male receiving radiation therapy for prostate cancer. HPI: Patient Active Problem List Diagnosis Code ??? 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 Malignant neoplasm of prostate C61 Meds: reviewed Estimated body mass index is 24.77 kg/m?? as calculated from the following: Height as of 04/22/15: 175.8 cm (5' 9.21). Weight as of 02/29/20: 76.6 kg (168 lb 12.8 oz). Wt Readings from Last 3 Encounters: 02/29/20 76.6 kg (168 lb 12.8 oz) 04/22/15 90.2 kg (198 lb 13.7 oz) 04/03/15 92 kg (202 lb 13.2 oz) Wt Hx: UBW: % UBW: IBW: +/- 10% % IBW: ___ Edema ___ Ascites ___Muscle wasting Nutrition Assessment: Food Intake: Am: first meal around 10 or 11, pashto muffin with egg on one side and butter and jam on the other Noon: often skips Pm: noodles with tomato sauce and ground meat Snacks: rarely snacks; occasional ice cream for dessert Fluids: one cup of coffee in AM, iced tea (sweetened with splenda), water Supplements/Frequency: ___ Ensure/Plus ___ Boost/Plus ___ CIB ___ Other: Teas, vitamins, or other nutritional supplements: n/a Food allergies or avoidances: n/a Appetite: good Nausea: Vomiting: Chewing: Dentition: Swallowing: Taste Changes: Bowels: denies diarrhea or constipation; does have increased bloating/gas Food availability/purchasing, meal planning and preparation: , self Anticipated adherence/understanding: good Nutrition Diagnosis: Increased bloating/gas in the setting of radiation therapy for prostate cancer. Nutrition Intervention: ? Provided tips to help reduce bloating, including smaller more frequent meals, avoiding caffeine on an empty stomach, avoiding common gas producing foods, etc. ? Modify diet consistency: low fiber ? Suggested adding in foods containing probiotics, such as yogurt or kefir Monitoring and Evaluation: Will follow up as needed. Thank you for this consult. documented in this encounter Plan of Treatment Upcoming Encounters Date Type Department Care Team (Late st Contact Info) Description 11/09/2024 10:30 AM EDT Office Visit Radiation Oncology at [address] [phone] Taya De La Vega PA [facility] HEMATOLOGY [place] [address] 11/13/2024 2:00 PM EDT Office Visit Hematology/Oncology at [address] [phone] Kirt Kennedy MD [facility] DR [place]EMATOLOGY [place] [address] Alem Lazaro APRN [address] [place] [address] DR HEMATOLOGY AND ONCOLOGY [place], [place] [id number] documented as of this encounter Visit Diagnoses Diagnosis Malignant neoplasm of prostate documented in this encounter Care Teams Political Director Relationship Specialty Start Date End Date Alfredo Montoya DO [address] [place] [id number] PCP - General Internal Medicine 12/04/19 04/27/23 documented as of this encounter
--- OUTSIDE RECORDS SUMMARY | 2024-05-24 19:30 | XMS_ITS | Encounter Summary ---
Author Organization [facility] [place] [address] Care Team Providers Care Sole Skiver Name Role Phone Alfredo Montoya DO Primary Care Provider [phone] Encounter Details Date Type Department Care Team (Late st Contact Info) Description 04/18/2020 10:00 AM EDT Office Visit Radiation Oncology at [address] [place] [phone] Que Evans MD [address] [place] [address] [place] [address] Malignant neoplasm of prostate Social [...] Sign Reading Time Taken Comments Blood Pressure 129/78 04/18/2020 10:00 AM EDT Pulse 50 04/18/2020 10:00 AM EDT Temperature 36 ??C (96.8 ??F) 04/18/2020 10: 00 AM EDT Respiratory Rate 18 04/18/2020 10:0 0 AM EDT Oxygen Saturation 100% 04/18/2020 10: 00 AM EDT Inhaled Oxygen Concentration - - Weight 71.6 kg (157 lb 12.8 oz) 020 10:00 AM EDT Height - - Body Mass Index 23.16 04/22/2015 1:44 PM EDT documented in this encounter Progress Notes * Que Evans MD - 04/18/2020 10:00 AM EDT Images from the original note were not included. RADIATION ONCOLOGY - Weekly On Treatment Visit Note 04/18/20 Que Evans MD, MS Radiation Oncology [facility] [phone] (paging refinery operator helper) Pager #[phone] PATIENT IDENTIFICATION Name Narcisa Eduardo Date of 1945 PCP Alfredo Montoya DO Referring MD (if different) Dr. Martha Monotya ([place]) 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, Gl [...] 79.2 Gy in 44 fractions Current Dose: 68.4 Gy in 38 fractions INTERVAL HISTORY Subjective: General - Overall feels fair today. GI - Constipation has resolved - taking Metamucil about every other day - Nocturia variable but 1x/nt recently (vs 0-2x/nt at baseline). Taking Flomax 0.4mg qhs. 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 Baseline IPSS history is listed below. Prostate Today's Scores 01/01/2020 Sexual Health Inventory for Men 25 International Prostate Symptom Score 8 (Moderate LUTS) Pain: Pain score today is 0/10. MEDICATIONS Medications 04/18/20 1013 Medication Sig Taking? Psyllium Seed-Sucrose (0) Powder Take by mouth [...] original approved treatment planning images. EXAM: BP 129/78 Pulse 50 Temp 36 ??C (96.8 ??F) (Temporal) Resp 18 Wt 71.6 kg (157 lb 12.8 oz) SpO2 100% BMI 23.16 kg/m?? Constitutional: he appears well-developed and well-nourished. [...] EDT Office Visit Radiation Oncology at [address] [phone] Taya De La Vega PA [facility] [place] [address] 11/13/2024 2:00 PM EDT Office Visit Hematology/Oncology at [address] [phone] Kirt Kennedy MD [facility] DR HEMAT[place]Y [place] [address] Alem Lazaro APRN [address] [place] [address] DR HEMATOLOGY [place] [address] documented as of this encounter Visit Diagnoses Diagnosis Malignant neoplasm of prostate documented in this encounter Care Teams Sole Skiver Relationship Specialty Start Date End Date Alfredo Montoya DO [address] [place] [place] [phone] PCP - General Internal Medicine 12/04/19 04/27/23 documented as of this encounter
--- OUTSIDE RECORDS SUMMARY | 2024-05-24 19:30 | XMS_ITS | Encounter Summary ---
Author Organization [facility] [place] [address] Care Team Providers Care Locomotive Electrician Name Role Phone Alfredo Montoya DO Primary Care Provider [phone] Encounter Details Date Type Department Care Team (Latest Contact Info) Description 04/16/2020 10:30 AM EDT Clinical Support Hematology/Oncology at [address] [phone] Malignant neoplasm [...] Progress Notes * Kristyn Johnson RD - 04/16/2020 10:30 AM EDT [facility] Dietitian Follow Up Seen By: Kristyn Johnson RD LD Referred by: Dr. Evans Patient and diagnosis: Narcisa Eduardo is a 74 y.o. year old male receiving radiation therapy for prostate cancer. HPI: Patient Active Problem List Diagnosis Code ??? 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 Malignant neoplasm of prostate C61 Meds: reviewed Estimated body mass index is 23.34 kg/m?? as calculated from the following: Height as of 04/22/15: 175.8 cm (5' 9.21). Weight as of 04/11/20: 72.1 kg (159 lb). Wt Readings from Last 3 Encounters: 04/11/20 72.1 kg (159 lb) 04/04/20 71.1 kg (156 lb 12.8 oz) 03/21/20 72.9 kg (160 lb 12.8 oz) Wt Hx: UBW: 170 lbs % UBW: IBW: +/- 10% % IBW: ___ Edema ___ Ascites ___Muscle wasting Nutrition Assessment: Food Intake: Am: first meal around 10 or 11, congolese muffin with egg on one side and [...] in stool frequency - taking metamucil is helping; he did take senna over the weekend, which resulted in multiple loose bowel movements but not watery; he had a formedbowel movement on Wednesday afternoon, no BM since. Plans to take metamucil again today. Food availability/purchasing, meal planning and preparation: usually [...] AM EDT Office Visit Radiation Oncology at [address] [phone] Taya De La Vega PA [facility] DR [place] [address] 11/13/2024 2:00 PM EDT Office Visit Hematology/Oncology at [address] [phone] Kirt Kennedy MD [facility] DR [place] [address] Alem Lazaro APRN [address] [place] [address] DR HEMATOLOGY AND ONCOLOGY [place], [place] [phone] documented as of this encounter Visit Diagnoses Diagnosis Malignant neoplasm of prostate documented in this encounter Care Teams Locomotive Electrician Relationship Specialty Start Date End Date Alfredo Montoya DO [address] [place] [id number] PCP - General Internal Medicine 12/04/19 04/27/23 documented as of this encounter
--- OUTSIDE RECORDS SUMMARY | 2024-05-24 19:30 | XMS_ITS | Encounter Summary ---
Author Organization [facility] Address [facility] [place] [address] Care Team Providers Care Boat Hoist Operator Name Role Phone Naty Robles MD Primary Care Provider [phone] Reason for Visit * Reason Comments Follow-up Encounter Details Date Type Department Care Team (Late st Contact Info) Description 04/22/2015 2:00 PM EDT Follow-Up Hematology [place] [phone] Eileen Teran MD [facility] [address] [place] [address] Follicular lymphoma Discharge Disposition: Home Social History Tobacco Use Types Packs/Day Years Used Date Smoking Tobacco: Every Day Cigarettes Sex and Gender Information Value Date Recorded Sex Assigned at Not on file Gender Identity Not on file Sexual Orientation Not on file documented as of this encounter Last Filed Vital Signs Vital Sign Reading Time Taken Comments Blood Pressure 136/68 04/22/2015 1:44 PM EDT Pulse 69 04/22/2015 1:44 PM EDT Temperature 36.8 ??C (98.2 ??F) 04/22/2015 1:44 PM ED T Respiratory Rate 18 04/22/2015 1:44 PM EDT Oxygen Saturation 96% 04/22/2015 1:44 PM EDT Inhaled Oxygen Concentration - - Weight 90.2 kg (198 lb 13.7 oz) 04/22/2015 1:44 PM EDT Height 175.8 cm (5' 9.21) 04/22/2015 1:44 PM ED T Body Mass Index 29.19 04/22/2015 1:44 PM EDT documented in this encounter Progress Notes * Eileen Teran MD - 04/22/2015 1:24 PM EDT . Hematology Clinic [facility] [place] [id number] NEW PATIENT EVALUATION PROBLEM LIST: Patient Active Problem List Diagnosis ??? 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 Path consistent with FL but more tissue needed to rule out for grading and to rule out transformation Normal LDH. PET scan 04/22/15 HISTORY OF PRESENT ILLNESS: It was my pleasure to meet Narcisa Eduardo today. Narcisa Eduardo is a 69 y.o. year old male being seen for evaluation of lymphoma. He saw Dr Robles for suspected hernia And then saw Dr Chaney. he is referred in consultaion from Dr. Je Durham at [facility]. The patient presented with what was thought to be a right flank mass to Dr. Je Durham in [place]. He denies any B symptoms. It was thought to bein a hernia or mass. Patient's states that he only noticed the mass for about 3 weeks prior to the time of bringing it to medical attention. (since February 22). First noticed mass on R flank since February 22. Overall feels like his energy is around 85-90% in the last month. On exam today I think he might have a mild R lateral abd hernia but no palpable mass. No B sx. Here today with his and son who flew in from [place]. PMHX: Hypertension CHRISTIAN for years No surgeries Denies cardiac disease, DM, COPD or other major medical problems or surgeries. ROS Energy level:see above Pain: R hip arthritis; Rotator cuff problems Appetite:good Fevers/chills/sweats:No Bruising/bleeding/melena:No Recent infections:No Headaches:neg Vision: 2013 cataract surgery with excellent results Hearing: loss of hearing, thought to be related to noise exposure in Sinus: neg Seasonal Allergies: neg Mouth sores:neg Dentition: Some cavities Swallowing: neg GERD : neg Nausea/vomiting: neg Diarrhea/constipation: constipated in mid January and resolved now SOB/DUNNE/pulmonary sx: no chest pain:No sx: negative Change in adenopathy or other masses:see above Unexpected weight loss or gain:No Skin rashes or petechiae:No Musculoskeletal complaints:No Extremities: Negative upper and lower bilaterally Neurologic symptoms:No Mental Status changes: neg Mood: Normal - possibly some PTSD from Sleep: Some Difficulty sleeping due to nocturia MEDS: Outpatient Prescriptions Marked as Taking for the 04/22/15 encounter (Follow-Up) with Eileen Teran MD Medication Sig Dispense Refill ??? atenolol (TENORMIN) 25 mg Tablet Take 25 mg by mouth daily. Current Facility-Administered Medications for the 04/22/15 encounter (Follow-Up) with Eileen Teran MD Medication Dose Route Frequency Provider Last Rate Last Dose ??? fentaNYL 50mcg/mL injection 25-50 mcg Intravenous Q5 Min PRN Tavo Dumont MD 50 mcg at 03/18/15 1525 ??? midazolam (PF) (VERSED) 1 mg/mL injection 1-2 mg 1-2 mg Intravenous Q5 Min PRN Tavo Dumont MD 1 mg at 03/18/15 1525 Allergies: No Known Allergies FAMILY HISTORY: Mother: Alzheimer 82 Father: AAA 83 Sibs: one brother with prostate CA. Children:3 children Other: negative SOCIAL HISTORY Personal: Kinue X 44 yrs and daughter Bertha. Enjoys working in garden. Reads a lot. Splits wood with spltter occasionally. 3 children - 43, 40 35 yo. 1 granddaughter 23 and one grandson six mos. 2 great grandchildren age 7 &2. 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 Worked for [employer]. Was in [employer] and at [employer] with [employer]. + [place] exposure. ETOH: 4-6 beers per day. Drinks more on occasion. No h/o problems w/ withdraw but minimally tested. Smokin/2 - 1ppd. Roles own. Started smoking at age 18. KITA Contact Permission: PHYSICAL EXAM BP 136/68 mmHg Pulse 69 Temp(Src) 36.8 ??C (98.2 ??F) (Temporal) Resp 18 Ht 175.8 cm (5' 9.21) Wt 90.2 kg (198 lb 13.7 oz) BMI 29.19 kg/m2 SpO2 96% Body surface area is 2.10 meters squared. GENERAL: Narcisa Index appears well and is in no acute distress. ENT: Oral pharynx clear. EYES: TOMY NECK: Supple his neck is thick and although I cannot palpate a discrete lymph nodes, I do think he probably has some adenopathy AXILLARY: One 1.[address] in each axilla OTHER LYMPH: no adenopathy CARDIAC: Regular rate and rhythm without S3,S4 or murmurs. LUNGS: Clear to auscultation./percussion ABDOMEN: protuberant abdomen. Soft and non-tender without hepatosplenomegaly or masses. R flank bulge without palpable mass beneath. The bulge is not noticeable when lying flat, worse in the sitting and standing positions. EXTREMITIES: No cyanosis, clubbing, edema or calf tenderness. SKIN: No bruises or petechiae. NEUROLOGICAL: Alert and oriented to person, place and time. MUSCULOSKELETAL: No spinal or chest wall tenderness. LABORATORY STUDIES No results found for this or any previous visit (from the past 72 hour(s)). Labs dated 03/07/15 show white count of 5.3 hemoglobin of 16.7 platelets of 1:15 ANC of 3.2 RADIOLOGY STUDIES REVIEWED: CT Abd/ Pelvis dated 03/06/15 notes adenopathy in the periaortic and iliac chains. The largest lymphnode is approximately 5.5 cm with the majority of them between [address] chest 03/08/15 with 2-3 cm bilateral axillary adenopathy. Subclavian and mediastional LN also noted. 03/22/15 EXAMINATION: PET/CT STANDARD (Skull base to Mid-thigh) CLINICAL HISTORY: staging lymphoma TECHNIQUE: Procedure: Following IV injection of 09-aiwpjk-7-deoxyglucose (FDG) a standard uptake of approximately 60 [...] left kidney. Consider further evaluation with ultrasound. ASSESSMENT/PLAN: It was my pleasure to meet this pleasant 69-year-old male who is accompanied by his and daughter. The patient is referred by Dr. Chaney of surgery with newly diagnosed lymphoma. The patient presented with a right flank mass with concern for abdominal hernia. CAT scan did not confirm from the hernia, but did show scattered at adenopathy throughout the abdomen and chest. Largest lymph nodes were on the range of about 5 cm. Although the adenopathy is relatively large in size, it is not mattedand overall his burden of disease is not extensive. He had a CAT scan guided biopsy that confirmed lymphoma and suggested follicular lymphoma, but transformation or component of large cell cannot be excluded. Pathology was unable to grade follicular lymphoma based on the small sample size. Should the patient never need therapy, I would recommend a repeat excisional biopsy before proceeding. I reviewed the diagnosis of lymphoma and the fact that he has a non-Hodgkin's B- cell lymphoma. It appears to be follicular but he cannot be graded and we cannot rule out a transformation. I explainedthat some lymphomas a curable and others may need treatment but are not necessarily curable. In hiscase, we may need advantage of time to better determine the course of his disease. I explained thatsome follicular lymphomas start off with a watch and wait approach. Others require therapy such as chemotherapy. We reviewed his PET scan and the results listed above. I explained that I do not believe his lymphoma is the cause of the right sided flank bulging. I suspect this is indeed an abdominal hernia as originally thought by the PCP. There is nothing on the CAT scan this protruding nor is there any large mass on the right side that would explain the flank bulging. PET imaging CONFIRMed no mass. Discussed watch and wait approach and indications for treatmetn. Pt [facility] [place] [facility] Reviewed renal lesion -will check US at next appt. Pt is already aware of aneurysm and his PCP is following. The patient has been a smoker his entire life. Although he has a minimal past medical history, I would do baseline PFTs and echocardiogram prior to treatment to get a better feeling for his current heart and lung function. BMBx also has not yet been done. i will defer these for now, as I do not know when therapy will be initiated. I discussed all of the above with the patient and all of his questions were answered. Support and counseling given as appropriate. This note was written or modified using [employer] voice recognition software. The final note was screened for mistakes. Please excuse any remaining errors. RTC in 3 mos with labs and appt with Krystle LOPEZ. Will check Renal US on same day. 6 mo f/u with EMB and CT CAP and labs. total time:40 time in counsellin Copy NATY ROBLES MD (General) documented in this encounter Miscellaneous Notes * Addendum Note - Eileen Teran MD - 04/22/2015 11:29 PM EDTAddended by: EILEEN TERAN on: 04/22/2015 11:29 PM Modules accepted: Level of Service documented in this encounter Plan of Treatment Upcoming Encounters Date Type Department Care Team (Late st Contact Info) Description 11/09/2024 10:30 AM EDT Office Visit Radiation Oncology at [address] [phone] Taya De La Vega PA [facility] [address] [place] [address] 11/13/2024 2:00 PM EDT Office Visit Hematology/Oncology at [address] [phone] Kirt Kennedy MD [facility] [place] [address] Alem Lazaro APRN [address] [place] [address] HEMATOLOGY AND ONCOLOGY [place], [place] [phone] documented as of this encounter Visit Diagnoses Diagnosis Follicular lymphoma Nodular lymphoma, unspecified site, extranodal and solid organ sites documented in this encounter Care Teams Boat Hoist Operator Relationship Specialty Start Date End Date Naty Robles MD [address] [facility] [place], [place] [id number] PCP - General 03/18/15 08/22/19 documented as of this encounter
--- OUTSIDE RECORDS SUMMARY | 2024-05-24 19:30 | XMS_ITS | Encounter Summary ---
Author Organization [facility] Address [facility] [place] [address] Care Team Providers Care House Builder Name Role Phone Alfredo Montoya DO Primary Care Provider [phone] Encounter Details Date Type Department Care Team (Late st Contact Info) Description 08/27/2020 Telephone Neurosurgery at [facility] [place] [place] [phone] Chloé Hummel APRN Social History Tobacco Use Types Packs/Day Years [...] encounter Miscellaneous Notes * Telephone Encounter - Chloé Hummel APRN - 08/27/2020 3:35 AM EST 74 year old male with prior history of stroke 09/2019 on plavix who had episode of slurred speech athome which had resolved by the time he arrived to ED at [place]. He is on Keppra 750mg BID at home. Patient is being given KCentra/Vitamin K and Keppra 1 gram load with increase to 1 gram BID. He is neurologically intact and without any deficits since arrival to ED there. MRI Brain with LEFT frontal-parietal [facility] currently has no capacity to take this patient. In light of the fact that [place] has already called (5) other hospitals to take this patient without success, they are going to monitor the patient there in the ICU, repeat CT Head in AM, and call for bed capacity in AM. Should the patient have any change in their neuro exam they should call us back immediately. Images were reviewed with Dr. Sutton. documented in this encounter Plan of Treatment Upcoming Encounters Date Type Department Care Team (Late st Contact Info) Description 11/09/2024 10:30 AM EDT Office Visit Radiation Oncology at [address] [phone] Taya De La Vega PA [facility] DR HEMATOLOGY [place] [address] 11/13/2024 2:00 PM EDT Office Visit Hematology/Oncology at [address] [phone] Kirt Kennedy MD [facility] DR HEMATOLOGY [place] [address] Alem Lazaro APRN [address] [place] [address] DR HEMATOLOGY AND ONCOLOGY [place], [place] [phone] documented as of this encounter Visit Diagnoses Not on filedocumented in this encounter Care Teams House Builder Relationship Specialty Start Date End Date Alfredo Montoya DO [address] [place] [id number] PCP - General Internal Medicine 12/04/19 04/27/23 documented as of this encounter
--- OUTSIDE RECORDS SUMMARY | 2024-05-24 19:30 | XMS_ITS | Encounter Summary ---
Author Organization [facility] Address [facility] [place] [address] Care Team Providers Care Engineer Name Role Phone Alfredo Montoya DO Primary Care Provider Encounter Details Date Type Department Care Team (Late st Contact Info) Description 08/26/2020 12:10 AM EST Ancillary Procedure Radiology Library at [facility] [place] [address] Alfredo Montoya, DO [address] [place] [address] Social History Tobacco Use Types Packs/Day Years [...] EDT Office Visit Radiation Oncology at [address] [phone] Taya De La Vega PA [facility] HEMATOLOGY [place] [address] 11/13/2024 2:00 PM EDT Office Visit Hematology/Oncology at [address] [phone] Kirt Kennedy MD [facility] DR [place] [address] Alem Lazaro, BOX COVERING MACHINE OPERATOR [address] [place] [address] HEMATOLOGY AND ONCOLOGY [place], [place] [address] documented as of this encounter Procedures Procedure Name Priority Date/Time Associated Diagnosis Comments FILM LIBRARY STORAGE ONLY DX PELVIS Routine 08/26/2020 12:10 AM EST documented in this encounter Results * Film Library- Storage Only DX Pelvis (08/26/2020 12:10 AM EST) Narrative [facility] - 10/05/2020 4:53 AM EST This exam is auto-finalizing. It's purpose is for storage only. Alfredo Montoya DO [facility] FILM LIBRARY OR DERABLES Performing Organization Address City/State/[facility] Co de Phone Number [place], [place] documented in this encounter Visit Diagnoses Not on filedocumented in this encounter Care Teams Engineer Relationship Specialty Start Date End Date Alfredo Montoya DO [address] [place] [id number] PCP - General Internal Medicine 12/04/19 04/27/23 documented as of this encounter
--- OUTSIDE RECORDS SUMMARY | 2024-05-24 19:30 | XMS_ITS | Encounter Summary ---
Author Organization [facility] Address [facility] [place] [address] Care Team Providers Care Graduate Assistant Athletic Trainer Name Role Phone Alfredo Montoya DO Primary Care Provider [phone] Encounter Details Date Type Department Care Team (Late st Contact Info) Description 02/02/2020 Refill Radiation Oncology at [address] [phone] Noelle Ramirez RN Malignant neoplasm of prostate Social History Tobacco [...] Telephone Encounter - Noelle Ramirez RN - 02/02/2020 3:15 PM EDT Patient information for gold coil prostate placement Individual involved with teaching: over the phone 3:15 - 3: 51 Patient [ x ] spouse [ ] Other [ ] Procedure Date: 02/08 Arrival Time: 0900 Time of Procedure: 929 Location: [facility] Why gold coils? You and your [...] not sure about any of your medications. For you this means stop taking [ Plavix: PCP advised he stop 5 days before procedure and resume 1 day after . Pt confirms this knowledge ] Prescriptions to get filled: He confirms receiving medications ( dex and Levaquin) from [facility]. Prescription for steroid: to prevent swelling at implant site. [ x ]dexamethasone : starting the day of the procedure: 2 mg twice a day for 3 days then 2 mg once a day for 3 days Prescription for Antibiotic: to prevent infection [x ]Levofloxacin 500 mg 1 hour before the procedure. [x ]2 fleet enemas- you will need to pick this up over the encounter. No prescription needed. Prescription to help you relax ( if needed) [x ] Lorazepam 1 mg po 1 hour prior to procedure. Bring 2nd pill with you to procedure in case you need a repeat dose. You must have someone drive you home if you take this medication due to its sedative properties. Patient had originally declined this earlier when we arranged for medications with [facility], but he now feels it may be helpful.This prescription was sent to [facility] 02/02/20. His will drive him. THE DAY BEFORE THE PROCEDURE: ?? Eat [...] levofloxacin 1 hour prior to procedure. ?? If ordered: take Lorazepam 1 mg po 1 hour prior to procedure. Plan to arrive in the Radiation/Oncology Department [...] or if you have any other concerns. Future Appointments: ?? MRI at [facility] : You will receive separate instructions specifically from [facility] concerning your exact arrival time and what you need to do to prepare for this. Date: 02/13 at [facility] at 7:50 , per patient. ?? Your planning session (simulation) will be done at the same day of your MRI at the Radiation Oncology Department section 2K [Date: 02/13 ] [Time:arrive at 10:30 ] For proper visualization of prostate, it is required that you have a moderately full bladder. This will require you to arrive 30 minutes before scheduled appointment and drink 2 glasses of water upon arrival. There are no restrictions with eating. How to reach us: [facility] [phone] For weekends and after hours: Call [facility] ask for the special education coordinator radiation oncologist documented in this encounter Plan of Treatment Upcoming Encounters Date Type Department Care Team (Late st Contact Info) Description 11/09/2024 10:30 AM EDT Office Visit Radiation Oncology at [address] [phone] Taya De La Vega PA [facility] DR [place] [address] 11/13/2024 2:00 PM EDT Office Visit Hematology/Oncology at [address] [phone] Kirt Kennedy MD [facility] DR [place] [address] Alem Lazaro APRN [address] [place] [address] DR HEMATOLOGY [place] [address] documented as of this encounter Visit Diagnoses Diagnosis Malignant neoplasm of prostate documented in this encounter Care Teams Graduate Assistant Athletic Trainer Relationship Specialty Start Date End Date Alfredo Montoya DO [address] [place] [id number] PCP - General Internal Medicine 12/04/19 04/27/23 documented as of this encounter
--- OUTSIDE RECORDS SUMMARY | 2024-05-24 19:30 | XMS_ITS | Encounter Summary ---
Author Organization [facility] Address [facility] [place] [address] Care Team Providers Care Extrusion Manager Name Role Phone Alfredo Montoya DO Primary Care Provider Encounter Details Date Type Department Care Team (Late st Contact Info) Description 08/26/2020 12:05 AM EST Ancillary Procedure Radiology Library [place] [phone] Alfredo Montoya, DO [address] [place] [address] Social History Tobacco Use Types Packs/Day Years [...] EDT Office Visit Radiation Oncology at [address] [phone] Taya De La Vega PA [facility] HEMATOLOGY [place] [address] 11/13/2024 2:00 PM EDT Office Visit Hematology/Oncology at [address] [phone] Kirt Kennedy MD [facility] DR [place] [address] Alem Lazaro, GUM DIPPER [address] [place] [address] HEMATOLOGY AND ONCOLOGY [place], [place] [address] documented as of this encounter Procedures Procedure Name Priority Date/Time Associated Diagnosis Comments FILM LIBRARY STORAGE ONLY DX CHEST Routine 08/26/2020 12:05 AM EST documented in this encounter Results * Film Library- Storage Only DX Chest (08/26/2020 12:05 AM EST) Narrative [facility] - 10/05/2020 4:50 AM EST This exam is auto-finalizing. It's purpose is for storage only. Alfredo Montoya DO [facility] FILM LIBRARY OR DERABLES Performing Organization Address City/State/[place] Co de Phone Number [place], [place] documented in this encounter Visit Diagnoses Not on filedocumented in this encounter Care Teams Extrusion Manager Relationship Specialty Start Date End Date Alfredo Montoya DO [address] [place] [id number] PCP - General Internal Medicine 12/04/19 04/27/23 documented as of this encounter
--- OUTSIDE RECORDS SUMMARY | 2024-05-24 19:30 | XMS_ITS | Encounter Summary ---
Author Organization [facility] Address [facility] [place] [address] Care Team Providers Care Corporate Quality Manager Name Role Phone Robson Robles MD Primary Care Provider [phone] Encounter Details Date Type Department Care Team (Latest Contact Info) Description 12/11/2015 1:53 PM EDT - 12/11/2015 11:59 PM EDT [place] [phone] Discharge Disposition: Home Social History Tobacco Use [...] EDT Office Visit Radiation Oncology at [address] [phone] Taya De La Vega PA [facility] DR HEMATOLOGY [place] [address] 11/13/2024 2:00 PM EDT Office Visit Hematology/Oncology at [address] [phone] Kirt Kennedy MD [facility] DR HEMATOLOGY [place] [address] Alem Lazaro APRN [address] [place] [address] DR [place] [address] documented as of this encounter Procedures Procedure Name Priority Date/Time Associated Diagnosis Comments IMMUNOPHENOTYPING FLOW CYTOMETRY (BLOOD) Routine 12/11/2015 1:27 PM EDT FLOW CYTOMETRY REPORT Routine 12/11/2015 1:27 PM EDT documented in this encounter Results * Flow Cytometry Report (12/11/2015 1:27 PM EDT) Flow Cytometry Report [id number] ?Location: [facility] The signing pathologist has (i) examined the relevant preparation(s) for the specimen(s) and (ii) rendered or confirmed the diagnosis(es). . ?Flow Cytometry DIAGNOSIS Normal immunophenotyping results. No monotypic B-cell population or phenotypically abnormal T-cell population or increase in blasts is detected. NOTE : Bone marrow involvement by Follicular lymphoma cannot be excluded based on this analysis. Morphologic correlation recommended as lymphoma aggregates are often not aspirated, yet can be present in the core biopsies. 12/13/15 PK 12/13/15 Verified by: ? Curtis Hansen MD ?Hematopathologist ?(Electronic Signature) DISCUSSION Blasts based on CD45 expression and orthogonal light scatter, are not increased. The T-lymphocytes, CD56+ NK cells and B- lymphocytes comprise approx 73%, 21%, 6% of the gated population, respectively. The CD19 positive B-cells have a polytypic expression of surface immunoglobulin light chain ([place]:Lambda ratio at 0.9). The T-cells are an admixture of CD4+ and CD8+ T lymphocytes (ratio of 1.3). No loss or atypical intensity distributions are seen for any alvarado T antigen (CD2, 3, 4+8, 5, 7). There is no increase in AM12-zsyupeun/CD3-ne g NK cells. Flow analysis is an ancillary study. A definite diagnosis requires correlation with the morphologic features of this process and if necessary, correlation with other ancillary studies like immunohistochemistry , enzyme cytochemistry and/or cyto/molecular genetics. This test was developed and its performance characteristics determined by the Clinical Flow Cytometry Laboratory at [facility]. It has not been cleared or [...] high complexity clinical laboratory testing. SPECIMEN PROCESSING [id number] Cells for immunophenotypic analysis were derived from bone marrow aspirate. ??CD45 vs side scatter gating was utilized to identify a lymphoid analysis region that comprises approximately 7-8% of all cells. The following markers were assessed: CD2, CD3, CD4, CD5, CD7, CD8, CD10, CD19, CD45, CD56, kappa light chain, and lambda light chain. CLINICAL INFORMATION hx of [facility] 12/11/2015 1:27 PM EDT Denise Stone MD PATHOLOGY/CYTOLOGY O RDERATERRI [facility] [place] [address] * Immunophenotyping Flow Cytometry (12/11/2015 1:27 PM EDT) Immunophenotyping Flow See Comment [facility] Comment: When completed by the Pathologist, the Flow Cytometry Report ([id number]) will display under the Pathology Results section within eDH. Specimen of unknown material (specimen) Other / Unknown 12/11/2015 1:27 PM EDT 12/12/2015 3:02 PM EDT Narrative Resulting Agency Comment Spec In Lab Denise Stone MD HEMATOLOGY ORDERABLE S [facility] [place] [address] documented in this encounter Visit Diagnoses Not on filedocumented in this encounter Care Teams Corporate Quality Manager Relationship Specialty Start Date End Date Robson Robles MD [address] [place] [address] PCP - General 03/18/15 08/22/19 documented as of this encounter
--- OUTSIDE RECORDS SUMMARY | 2024-05-24 19:30 | XMS_ITS | Encounter Summary ---
Author Organization [facility] [place] [address] Care Team Providers Care Board Certified Arts Therapist Name Role Phone Alfredo Montoya DO Primary Care Provider [phone] Reason for Visit * Reason Onset Date Comments Other 02/13/2020 covid screening Encounter Details Date Type Department Care Team (Late st Contact Info) Description 02/13/2020 Telephone Radiation Oncology at [address] [phone] Joana Roberts MSW OFFICE OF CARE MANAGEMENT Other (covid screening) Social History Tobacco Use Types Packs/Day Years [...] Encounter - Joana Roberts MSW - 02/13/2020 9:20 AM EDT Called Narcisa Eduardo to provide information on caregiver, mask and screening guidelines after using 2 unique identifiers confirm their identity: -We are currently not allowing any visitors in the office. If you have a truck driver for your appointment we ask that they wait outside. -If you would like someone to be a part of your appointment we ask that you arrive with the caregiver's phone number. If they have accompanied you and do not have a cell phone we will provide a room with a phone for them to use. The provider will call the individual during the appointment. -If it is determined that it is necessary for a caregiver to accompany you to your appointment theywill be screened with you at the door. SCREENING: ??? Please arrive at the main entrance and enter the cancer center through the library door (first door on the left). We will screen you, and anyone with you, for CoVid symptoms and take your temperature. All patients, caregivers, and staff are being screened each time they enter the facility. MASKS: ??? Please be aware that you will need to wear a mask while you are at the cancer center. ??? You will be allowed to wear your own mask if you have one, and if you don't, we will give you one to wear. ??? If you are symptomatic you will need to wear a [facility]-issued mask. PHONE SCREENING: ??? In order for us to be able to make the best plan to provide your care safely, we need to ask you some screening questions. o Are you currently experiencing any new (within the past 14 days) shortness of breath, cough, nasal congestion or drainage, or fever? NO o Have you recently been exposed to anyone with CoVID 19? NO o Do you or anyone in your household have a CoVID19 test pending or been tested recently? NO Narcisa Jayce was informed to contact our office for further instructions if they develop symptoms (shortness of breath, cough, nasal congestion or drainage, or fever) prior to their appointment. Please do not come in for your appointment until you have instructions from our office. Confirmed officephone # . documented in this encounter Plan of Treatment Upcoming Encounters Date Type Department Care Team (Late st Contact Info) Description 11/09/2024 10:30 AM EDT Office Visit Radiation Oncology at [address] [phone] Taya De La Vega PA [facility] [place]AT[place] [address] 11/13/2024 2:00 PM EDT Office Visit Hematology/Oncology at [address] [phone] Kirt Kennedy MD [facility] DR [place]Y [place] [address] Alem Lazaro APRN [address] [place] [address] DR HEMATOLOGY AND ONCOLOGY [place], [place] [address] documented as of this encounter Visit Diagnoses Not on filedocumented in this encounter Care Teams Board Certified Arts Therapist Relationship Specialty Start Date End Date Alfredo Montoya DO [address] [place] [id number] PCP - General Internal Medicine 12/04/19 04/27/23 documented as of this encounter
--- OUTSIDE RECORDS SUMMARY | 2024-05-24 19:30 | XMS_ITS | Encounter Summary ---
Author Organization [facility] [place] [address] Care Team Providers Care Brokerage Branch Manager Name Role Phone Alfredo Montoya DO Primary Care Provider [phone] Encounter Details Date Type Department Care Team (Late st Contact Info) Description 04/02/2020 10:00 AM EDT Office Visit Hematology/Oncology at [address] [phone] Malignant neoplasm [...] Progress Notes * Kristyn Johnson RD - 04/02/2020 10:00 AM EDT [facility] Dietitian Follow Up Seen By: Kristyn Johnson RD LD Referred by: Dr. Evans Patient and diagnosis: Narcisa Eduardo is a 74 y.o. year old male receiving radiation therapy for prostate cancer. HPI: Patient Active Problem List Diagnosis Code ??? 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 Malignant neoplasm of prostate C61 Meds: reviewed Estimated body mass index is 23.6 kg/m?? as calculated from the following: Height as of 04/22/15: 175.8 cm (5' 9.21). Weight as of 03/21/20: 72.9 kg (160 lb 12.8 oz). Wt Readings from Last 3 Encounters: 03/21/20 72.9 kg (160 lb 12.8 oz) 03/14/20 74.2 kg (163 lb 9.6 oz) 02/29/20 76.6 kg (168 lb 12.8 oz) Wt Hx: UBW: % UBW: IBW: +/- 10% % IBW: ___ Edema ___ Ascites ___Muscle wasting Nutrition Assessment: Food Intake: Am: first meal around 10 or 11, malian muffin with egg on one side and [...] Vomiting: Chewing: Dentition: Swallowing: Taste Changes: Bowels: reports alternating diarrhea/constipation; diarrhea usually occurs 1-2 times per week; usesimodium as needed; not using metamucil Food availability/purchasing, meal planning and preparation: usually prepares dinner meal Anticipated adherence/understanding: good Nutrition Diagnosis: Increased bloating/gas, changes in bowels related to radiation therapy for prostate cancer. Nutrition Intervention: ? Reviewed/reinforced tips to help reduce bloating, including smaller more frequent meals, avoidingcaffeine on an empty stomach, avoiding common gas producing foods. ? Modify diet consistency: low fiber ? Encouraged adequate fluid intake ? Provided diarrhea handout with food suggestions and recipes ? Recommended limiting foods high in lactose, such as ice cream, milk, certain cheeses (list provided) Monitoring and Evaluation: Will follow up in 1 week. documented in this encounter Plan of Treatment Upcoming Encounters Date Type Department Care Team (Late st Contact Info) Description 11/09/2024 10:30 AM EDT Office Visit Radiation Oncology at [address] [phone] Taya De La Vega PA [facility] DR [place] [address] 11/13/2024 2:00 PM EDT Office Visit Hematology/Oncology at [address] [phone] Kirt Kennedy MD [facility] [place] [address] Alem Lazaro APRN [address] [place] [address] DR HEMATOLOGY AND ONCOLOGY [place] [phone] documented as of this encounter Visit Diagnoses Diagnosis Malignant neoplasm of prostate documented in this encounter Care Teams Brokerage Branch Manager Relationship Specialty Start Date End Date Alfredo Montoya DO [address] [place] [id number] PCP - General Internal Medicine 12/04/19 04/27/23 documented as of this encounter
--- OUTSIDE RECORDS SUMMARY | 2024-05-24 19:30 | XMS_ITS | Encounter Summary ---
Author Organization [facility] [place] [address] Care Team Providers Care Locomotive Crane Operator Name Role Phone Alfredo Montoya DO Primary Care Provider [phone] Encounter Details Date Type Department Care Team (Late st Contact Info) Description 04/11/2020 10:15 AM EDT Office Visit Radiation Oncology at [address] [phone] Que Evans MD [address] [place] [address] [place] [address] Malignant neoplasm of prostate Social [...] Sign Reading Time Taken Comments Blood Pressure 124/87 04/11/2020 10:00 AM EDT Pulse 53 04/11/2020 10:00 AM EDT Temperature 36.1 ??C (97 ??F) 04/11/2020 10:00 AM EDT Respiratory Rate 16 04/11/2020 10:00 AM EDT Oxygen Saturation 100% 04/11/2020 10:00 AM EDT Inhaled Oxygen Concentration - - Weight 72.1 kg (159 lb) 04/11/2020 10:00 AM EDT Height - - Body Mass Index 23.34 04/22/2015 1:44 PM EDT documented in this encounter Progress Notes * Nathan, Que S, MD - 04/11/2020 10:15 AM EDT Images from the original note were not included. RADIATION ONCOLOGY - Weekly On Treatment Visit Note 04/11/20 Que Evans MD, MS Radiation Oncology [facility] [phone] (paging dry end operator) Pager #[phone] PATIENT IDENTIFICATION Name Narcisa Eduardo Date of 1945 PCP Alfredo Montoya DO Referring MD (if different) Dr. Martha Montoya ([place]) 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, Gl [...] 79.2 Gy in 44 fractions Current Dose: 59.4 Gy in 33 fractions INTERVAL HISTORY Subjective: General - Overall feels fair today. GI - Ongoing constipation / diarrhea. Took Imodium on Wednesday and no BM since. Planning to take some Metamucil today. - Nocturia variable. None last night, but sometimes 3-4x/nt (vs 0-2x/nt at baseline). Taking Flomax 0.4mg qhs. 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 Baseline IPSS history is listed below. Prostate Today's Scores 01/01/2020 Sexual Health Inventory for Men 25 International Prostate Symptom Score 8 (Moderate LUTS) Pain: Pain score today is 0/10. MEDICATIONS Medications 04/11/20 1035 Medication Sig Taking? loperamide (IMODIUM A-D) 2 mg Tablet Take by mouth 4 times daily as needed for Diarrhea. Maximum 16mg in 24 hours Yes Psyllium Seed-Sucrose (0) Powder Take by [...] original approved treatment planning images. EXAM: BP 124/87 Pulse 53 Temp 36.1 ??C (97 ??F) (Temporal) Resp 16 Wt 72.1 kg (159 lb) SpO2 100% BMI 23.34 kg/m?? Constitutional: he appears well-developed and well-nourished. [...] EDT Office Visit Radiation Oncology at [address] [phone] Taya De La Vega PA [facility] [place] [address] 11/13/2024 2:00 PM EDT Office Visit Hematology/Oncology at [address] [phone] Kirt Kennedy MD [facility] DR [place] [address] Alem Lazaro APR[address] [place]OLOG[place] [address] documented as of this encounter Visit Diagnoses Diagnosis Malignant neoplasm of prostate documented in this encounter Care Teams Locomotive Crane Operator Relationship Specialty Start Date End Date Alfredo Montoya DO [address] [place] [id number] PCP - General Internal Medicine 12/04/19 04/27/23 documented as of this encounter
--- OUTSIDE RECORDS SUMMARY | 2024-05-24 19:30 | XMS_ITS | Encounter Summary ---
Author [facility] [address] Care Team Providers Care Bleacher Pulp Name Role Phone Alfredo Montoya DO Primary Care Provider Encounter Details Date Type Department Care Team (Late Contact Info) Description 02/02/2020 3:00 PM EDT Telephone Radiation Oncology at [address] [phone] Que Evans MD [address] [place] [address] [place] [address] [address] [place] Social History Tobacco Use Types Packs/Day Years [...] EDT Office Visit Radiation Oncology at [address] [phone] Taya De La Vega PA [facility] DR [place] [address] 11/13/2024 2:00 PM EDT Office Visit Hematology/Oncology at [address] [phone] Kirt Kennedy MD [facility] DR [place] [address] Alem Lazaro APRN [address] [place] [address] [place] [address] documented as of this encounter Visit Diagnoses Not on filedocumented in this encounter Care Teams Bleacher Pulp Relationship Specialty Start Date End Date Alfredo Montoya DO [address] [place] [phone] PCP - General Internal Medicine 12/04/19 04/27/23 documented as of this encounter
--- OUTSIDE RECORDS SUMMARY | 2024-05-24 19:30 | XMS_ITS | Encounter Summary ---
Author Organization [facility], Located Within [facility] [place] [address] Care Team Providers Care Sander Operator Name Role Phone Alfredo Montoya DO Primary Care Provider [phone] Encounter Details Date Type Department Care Team (Late st Contact Info) Description 02/09/2020 9:30 AM EDT Procedure visit Radiation Oncology at [address] [place] [phone] Que Evans MD [address] [place] [address] [place] [address] Malignant neoplasm of prostate Social [...] Sign Reading Time Taken Comments Blood Pressure 143/84 02/09/2020 12:21 PM EDT Pulse 57 02/09/2020 12:21 PM EDT Temperature 36.5 ??C (97.7 ??F) 02/09/2020 9:09 AM ED T Respiratory Rate 16 02/09/2020 12:21 PM EDT Oxygen Saturation 98% 02/09/2020 12:21 PM EDT Inhaled Oxygen Concentration - - Weight - - Height - - Body Mass Index - - documented in this encounter Patient Instructions * Patient Instructions* Noelle Ramirez RN - 02/09/2020 9:30 AM EDT After Your Gold Coil Implantation Procedure: ?? You may resume normal activity. ?? You may resume intercourse in one week. ?? You may take extra-strength Tylenol for any discomfort. Avoid NSAID's such as ibuprofen and aspirin for 48 hours after procedure as these medications could cause bleeding. ?? Take your dexamethasone as directed. This medication helps to control swelling. ?? Resume your :[ Plavix ] after 24 hours per your PCP instructions. ?? Call us if you notice any unusual swelling, pain, bleeding or if you have any other concerns. Future Appointments: ? MRI : You will receive separate instructions specifically from [facility] concerning your exact arrival time and what you need to do to prepare for this. Date: 02/13 at [facility] at 7:50 , per patient. ? Your planning session (simulation) will be done at the same day of your MRI at the Radiation Oncology Department section 2K [Date: 02/13 ] [Time:arrive at 10:30 ] For proper visualization of prostate, it is required that you have a moderately full bladder. ?? This will require you to arrive 30 minutes before scheduled appointment and drink 2 glasses of water upon arrival. There are no restrictions with eating. ?? How to reach us: [facility] [phone] For weekends and after hours: Call [facility] ask for the telephone station repairer radiation oncologist documented in this encounter Progress Notes * Noelle Ramirez RN - 02/09/2020 9:30 AM EDT Radiation Oncology Procedure Nursing Note Procedure: Prostate fiducial / Space Oar implant by Dr Que Evans Time of patient arrival to clinic: 0900 See flowsheet for all vital signs and medication list updated info. Pre procedure questions: [ yes ] If Applicable: He confirms taking lorazepam 1mg po at (time): He comes to clinic accompanied by a trolley coach driver. [yes, stopped Plavix 5 days ago ] if Applicable: He confirms holding blood thinner as directed. [ yes, took at 0800 ] He confirms taking Levaquin( antibiotic) this morning [ yes ] He administered fleets enema as directed; last night and this AM, with good results. Patient states all his questions are answered and he is ready to proceed. Procedure Time out/start time: See Time out flow sheet for details. Assessment:Patient tolerated procedure well with no complaint of pain. Vitals: 02/09/20 1102 02/09/20 1153 02/09/20 1159 02/09/20 1221 BP: 150/79 119/73 138/76 143/84 Patient Position: Lying Lying Sitting Pulse: 67 58 60 57 Resp: 16 18 18 16 Temp: SpO2: 97% 94% 94% 98% After procedure,he was assisted to stretcher and transported to stretcher/emergency equipment bay for further monitoring. Time: 11:58 assisted to recliner. He denied lightheadedness. Vitals stable. After sitting in recliner for 12:30 he dressed self with nurse monitoring. Gait slightly unsteady. 1245 Pt walked with nurse in hallway. Gait steady. Discharged to car outside, driving. >> See AVS for printed instructions. [ x ]Take dexamethasone (steroid)as previously instructed (2mg twice a day for 3 days and once a day for 3 days). [x ]He may take Tylenol as needed for mild discomfort. He has the [facility] phone number and verbalized understanding to ask for the telephone station repairer radiation oncologist if he needs to after clinic hours. [ yes ] If applicable: He was reminded to not drive home due to Lorazepam. Time of discharge: 1145 vital signs stable,and gait steady. * Que Evans MD - 02/09/2020 9:30 AM EDT Identification and Indications: Narcisa Eduardo is a 74 y.o. gentleman with unfavorable intermediate-risk prostate cancer who presentstoday for the procedures listed below: Procedures and Rationale: 1. Gold coil fiducial marker placement in prostate for daily image guided localization. 2. SpaceOAR hydrogel injection between rectal wall and prostate gland to reduce rectal irradiation during radiation therapy. SpaceOAR is an absorbable polyethylene glycol (PEG) hydrogel (SpaceOAR) that was placed into perirectal fat space, thereby pushing the rectum away from the prostate. Physician(s): Que Evans MD, MS Anesthesia: Local lidocaine (2%) Description of Procedure: Narcisa Eduardo was placed in the lithotomy position with EMLA cream applied to the perineal skin. After a time-our was performed, a transrectal ultrasound probe was then placed within the rectum and stabilized using the placement positioning system. The perineum was prepped and draped. The SpaceOAR system was then prepared as per supervisor ski production's recommendations, using sterile technique. Lidocaine was then used to anesthetize SQ tissues and a needle was placed trans- perineally into theright lobe of the prostate under ultrasound guidance with the graticule serving for stabilization and position verification. The ultrasound was used to monitor the advancement of the needle, and lidocaine was locally applied as the needle was advanced towards the apex of the prostate. Once it was properly positioned, two 5mm gold coils (norin.tv) were separately placed within the right lobe, and the needle was removed. This procedure was repeated within the left prostate. Prior to SpaceOARneedle insertion, an axial measurement of the space between the prostate (mid gland) and rectum was noted. With the subject maintained in the dorsal lithotomy position, the transrectal ultrasound (TRUS) probe was positioned to enable visual guidance of the needle into the space between the prostate and the rectum. Under transrectal ultrasound guidance, the 15 cm 18G needle was inserted through the rectourethralis muscle and the needle tip advanced into the perirectal fat inferior to the prostate all by using atransperineal approach and with side-fire transrectal ultrasound guidance. The needle position was confirmed in both sagittal and axial singh. Saline was used to dissect the space between the Denonvilliers??? fascia and anterior rectal wall (???hydrodissection?? ). A space was created with hydrodissection. With the needle tip at mid gland, the axial field was viewed to confirm the needle was not in the rectal wall (movement of the needle tip without corresponding movement of the rectal wall will confirm perirectal placement). While maintaining the desired position, aspiration was done to ensure that the needle was not in vascular space. The assembled SpaceOAR delivery system was then attached to the 18G needle. Under ultrasound guidance (sagittal plane), a smooth, continuous injection technique was used to dispense the SpaceOAR hydrogel into the space between the prostate and rectum (Denonvilliers??? fasciaand the anterior rectal wall). The entire syringe contents (10 mL total) were injected without stopping. Optimal visualization of the needle during hydrogel administration was maintained at all times. An axial measurement of the space between the prostate (mid gland) and rectum immediately post-SpaceOAR injection was noted. No suspected penetration or compromise of the rectal wall occurred. Complications: none Estimated Blood Loss: minimal Disposition: Narcisa Eduardo tolerated the treatment well. He will return shortly for MRI imaging and for CT-based simulation and treatment planning, with radiation therapy to proceed thereafter. documented in this encounter Plan of Treatment Upcoming Encounters Date Type Department Care Team (Late st Contact Info) Description 11/09/2024 10:30 AM EDT Office Visit Radiation Oncology at [address] [phone] Taya De La Vega PA [facility] [address] [place] [address] 11/13/2024 2:00 PM EDT Office Visit Hematology/Oncology at [address] [phone] Kirt Kennedy MD [facility] DR [place] [address] Alem Lazaro APRN [address] [place] [address] [place] [address] documented as of this encounter Visit Diagnoses Diagnosis Malignant neoplasm of prostate documented in this encounter Care Teams Sander Operator Relationship Specialty Start Date End Date Alfredo Montoya DO [address] [place] [id number] PCP - General Internal Medicine 12/04/19 04/27/23 documented as of this encounter
--- OUTSIDE RECORDS SUMMARY | 2024-05-24 19:30 | XMS_ITS | Encounter Summary ---
Author Organization [facility] [place] [address] Care Team Providers Care Fire Warden Name Role Phone Alfredo Montoya DO Primary Care Provider [phone] Reason for Visit * Consultation (Routine) - Specialty Diagnoses / Procedures Referred By Rogers t Referred To Contact Radiation Oncology Diagnoses Malignant neoplasm of prostate Procedures Simulation for Radiation Therapy Planning Que Evans MD [address] [place] [address] [place] [address] [facility] Rad Onc Office [address] [place] [id number] Referral ID Status Reason Start Date Expiration Date V isits Requested Visits Authorized [id number] Consult, Test & Treat 12/01/2019 05/29/2020 99 99 Encounter Details Date Type Department Care Team (Late st Contact Info) Description 02/14/2020 11:00 AM EDT Ancillary Appointment Radiation Oncology at [address] [phone] Que Evans MD [address] [place] [address] [place] [address] Social History Tobacco Use Types Packs/Day Years [...] * Patient Instructions* Noelle Ramirez RN - 02/14/2020 11:00 AM EDT General instructions for Radiation therapy Radiation Oncology Team Radiation Oncologist -The doctor who will direct all aspects of your radiation treatments Nurse Practitioner - They assist your doctor in treating your side effects and with follow up appointments. Registered Nurse - They assist you in learning about you radiation treatments, , and things you kaushal to help manage the side effects. Sales And Events Coordinator - They take the doctors radiation prescription and customize it into doses (or days of treatments) specific for you. Physicist - They make sure all the machines are operating correctly and double check calculations for your treatment. Radiation Technologists - They operate the machines which deliver your radiation. You see them daily and they schedule your treatments. Simulation CT/ Planning Session Your first step after deciding to start radiation treatments is done on a special CAT scanner in the radiation department. The images obtained are used to plan your treatments. This may be scheduled the same day you meet your doctor or in a separate visit. This usually takes between 30 minutes to one hour. You may need an IV for contrast. If so our nurse will let you know that day along with any other special instructions. During this visit we may evonne Your skin with a tiny ???tattoos?? , take pictures or make special molds or masks to help us place you in the exact treatment position every day. After this session it takes up to two weeks for your plan to be developed and checked by your doctor, the dosimetrists and the physicist. Skin Care - Your nurse will provide you with the necessary creams and supplies as you need them during your treatments. Please make sure you keep the treatment area clean and dry. Be sure to notice if your clothing rubs or digs into the treatment area and try to wear clothes which are less abrasive, like cotton or loose fitting. Do not use harsh soaps, ointments, deodorants or tapes in the treatment area unless directed by your nurse or doctor. Keep the treatment area out of the sun during treatments. General precautions DO NOT USE heating pads, hot water bottles, hot poultices, heat lamps, heat in any form, or ice packs to the area of your body being treated. It is common to start feeling fatigue after a few weeks of being treated. You can help minimize this by getting regular exercise or walking and getting plenty of rest. In general a well balanced diet is recommended. The supervisor soldering and nurse will inform you of any special diet requirements. Avoid shaving the treatment area with a razor. If you must shave use an electric razor. >>>>Please remember: Do not urinate before your radiation treatment. Try to have a comfortably full bladder if possible. This will help reduce side effects on the long run. If you have any questions or concerns about these directions,please inform your nurse. >>> >Diarrhea management for patients receiving pelvic radiation: ?? For watery stools: Follow a low roughage, low fiber diet.Also avoid any foods/beverages with high acid content. For example:Tomatoes, citrus and vinegar. ?? Drink plenty of water;8-10 glasses/day ?? Take 1 imodium tablet after each loose watery stool. Do not take more than 8 tabs per day. Notify physician if diarrhea is not relieved after 8 tabs. Contact numbers Section of Radiation Oncology Our normal business hours are: Wednesday - Wednesday 8 AM to 5 PM [facility] phone# [phone] [facility] If you have questions about your radiation appointments please ask to speak to one of our secretarystaff. If you have questions for a nurse/doctor about radiation treatments, radiation side effects or you are not feeling well it is best to call early in the day. This allows a nurse to return your call by5 PM the same day. If you call after 4 PM, a nurse will return your call by 5 PM the following day unless it is emergent. If you experience any of the following you need to seek emergency care immediately by calling 911 1. Sudden and unexpected breathing difficulty without any exertion 2. Sudden onset of chest pain 3. Sudden onset of severe pain or uncontrolled pain 4. Sudden onset of severe weakness and/or unable to ambulate 5. Sudden new onset of a seizure 6. Fall resulting in injury A Radiation Oncology doctor is char conveyor tender after our normal hours and on weekends. To call for urgent medical issues from radiation treatments that can not wait until normal business hours, please call for either location and have the auger operator page the Radiation Oncologist char conveyor tender. documented in this encounter Progress Notes * Que Evans MD - 02/14/2020 11:00 AM EDT Simulation Note for External Beam Radiation Treatment Planning [facility] Javi Eduardo is a 74 y.o. year old male with unfavorable high risk prostate cancer who was simulated for definitive radiotherapy to the pelvis and prostate today. No changes were made from the plan as documented in the original simulation order and instructions. After confirming informed consent, a retrograde urethrogram was performed using a small amount of contrast dye, and then a 2.5mm slice thickness CT scan of the patient's pelvis was obtained. This scan was performed to delineate both target volumes and organs/structures at risk. These images will beused to create a customized treatment plan employing multileaf collimators and beams-eye view to treat the target to prescription dose while maximally sparing organs at risk, with the overall goal ofmaximizing the likelihood of a favorable disease response while minimizing the likelihood of any short term side effects or local company intermodal truck driver complications of therapy. I anticipate his prescription dose will be 79.2 Gy to the prostate, delivered in daily 1.8 Gy fractions over the course of 9.5 weeks. Anticipate therapy to begin within the next 10 days. Furthermore,I anticipate this patient will require IMRT or VMAT treatment planning and delivery as the criticaltreatment volume of interest (in this case, pelvic lymphatics, seminal vesicles, and prostate) is/ar e irregular and in close proximity to sensitive structures which must be protected (including his femurs, bladder, rectum, small bowel, and penile bulb). The patient tolerated this procedure well, and was provided instructions with regard to upcoming appointments. documented in this encounter Plan of Treatment Upcoming Encounters Date Type Department Care Team (Late st Contact Info) Description 11/09/2024 10:30 AM EDT Office Visit Radiation Oncology at [address] [phone] Taya De La Vega PA [facility] [place] [address] 11/13/2024 2:00 PM EDT Office Visit Hematology/Oncology at [address] [phone] Kirt Kennedy MD [facility] [place] [address] Alem Lazaro APRN [address] [place] [address] DR HEMATOLOGY AND ONCOLOGY [place], [place] [id number] Scheduled Orders Name Type Priority Associated Diagnoses Orde r Schedule Simulation for Radiation Therapy Planning Procedures Routine Malignant neoplasm of prostate Ordered: 01/18/2020 documented as of this encounter Visit Diagnoses Not on filedocumented in this encounter Care Teams Fire Warden Relationship Specialty Start Date End Date Alfredo Montoya DO [address] [place] [id number] PCP - General Internal Medicine 12/04/19 04/27/23 documented as of this encounter
--- OUTSIDE RECORDS SUMMARY | 2024-05-24 19:30 | XMS_ITS | Encounter Summary ---
Author Organization [facility] Address [facility] [place] [address] Care Team Providers Care Novelty Twister Tender Name Role Phone Naty Robles MD Primary Care Provider [phone] Reason for Visit * Reason Comments Advice Only Encounter Details Date Type Department Care Team (Late st Contact Info) Description 04/03/2015 2:00 PM EDT Office Visit Hematology [place] [id number] Eileen Cheung MD [facility] [address] HEMATOLOGY [place] [address] Follicular lymphoma Discharge Disposition: Home Social History Tobacco Use Types Packs/Day Years Used Date Smoking Tobacco: Every Day Cigarettes Sex and Gender Information Value Date Recorded Sex Assigned at Not on file Gender Identity Not on file Sexual Orientation Not on file documented as of this encounter Last Filed Vital Signs Vital Sign Reading Time Taken Comments Blood Pressure 143/73 04/03/2015 2:10 PM EDT Pulse 78 04/03/2015 2:10 PM EDT Temperature 37.3 ??C (99.1 ??F) 04/03/2015 2:10 PM ED T Respiratory Rate 18 04/03/2015 2:10 PM EDT Oxygen Saturation 97% 04/03/2015 2:10 PM EDT Inhaled Oxygen Concentration - - Weight 92 kg (202 lb 13.2 oz) 04/03/2015 2:10 PM EDT Height 177.8 cm (5' 10) 04/03/2015 2:10 PM EDT Body Mass Index 29.1 04/03/2015 2:10 PM EDT documented in this encounter Progress Notes * Eileen Cheung MD - 04/03/2015 2:20 PM EDT Hematology Clinic [facility] [place] [address] NEW PATIENT EVALUATION PROBLEM LIST: Patient Active Problem List Diagnosis ??? 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 Narcisa Eduardo is a 69 y.o. year old male being seen for evaluation of lymphoma. He saw Dr Robles for suspected hernia And then saw Dr Chaney. he is referred in consultaion from Dr. Je Durham at [facility]. The patient presented with what was thought to be a right flank mass to Dr. Je Durham in [place]. He denies any B symptoms. It was thought to bein a hernia or mass. Patient's states that he only noticed the mass for about 3 weeks prior to the time of bringing it to medical attention. (since February 22). First noticed mass on R flank since February 22. Overall feels like his energy is around 85-90% in the last month. He had one bad fall on his back before he was diagnosed. Hit his neck . No sequelae at this time. PMHX: Hypertension CHRISTIAN for years No surgeries [...] Outpatient Prescriptions Marked as Taking for the 04/03/15 encounter (Office Visit) with Eileen Cheung MD Medication Sig Dispense Refill ??? atenolol (TENORMIN) 25 mg Tablet Take 25 mg by mouth daily. Current Facility-Administered Medications for the 04/03/15 encounter (Office Visit) with Eileen Cheung MD Medication Dose Route Frequency Provider Last Rate Last Dose ??? fentaNYL 50mcg/mL injection 25-50 mcg Intravenous Q5 Min PRTavo Jewell MD 50 mcg at 03/18/15 1525 ??? midazolam (PF) (VERSED) 1 mg/mL injection 1-2 mg 1-2 mg Intravenous Q5 Min PRTavo Jewell MD 1 mg at 03/18/15 1525 Allergies: No Known Allergies FAMILY HISTORY: Mother: Alzheimer 82 Father: AAA 83 Sibs: one brother with prostate CA. Children:3 children Other: negative SOCIAL HISTORY Personal: Darrel X 44 yrs and daughter Bertha. Enjoys working in [employer]. Reads a lot. Splits wood with spltter occasionally. 3 children - 43, 40 35 yo. 1 granddaughter 23 and one grandson six mos. 2 great grandchildren age 7 &2. 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 Worked for [employer]. Was in foc[employer]us [facility] and at [employer] with [employer]. + [employer] exposure. ETOH: 4-6 beers per day. Drinks more on occasion. No h/o problems w/ withdraw but minimally tested. Smokin/2 - 1ppd. Roles own. Started smoking at age 18. HIPPA Contact Permission: PHYSICAL EXAM BP 143/73 mmHg Pulse 78 Temp(Src) 37.3 ??C (99.1 ??F) (Temporal) Resp 18 Ht 177.8 cm (5' 10) Wt 92 kg (202 lb 13.2 oz) BMI 29.10 kg/m2 SpO2 97% Body surface area is 2.13 meters squared. GENERAL: Narcisa Eduardo appears well and is in no acute [...] adenopathy. Subclavian and mediastional LN also noted. ASSESSMENT/PLAN: It was my pleasure to meet [...] approach. Others require therapy such as chemotherapy. I explained the need to get baseline labs and a PET scan. Based on this I can determine how concerned I am about the possibility for transformation. At this point, he has no B symptoms and no pain from the lymphoma. I suspect that a watch and wait approach will be most appropriate. Based on how thedisease behaves we may need another biopsy in the future. BMBx may need to be done depending on thelabs today. I explained that I do not believe his lymphoma is the cause of the right sided flank bulging. I suspect this is indeed an abdominal hernia as originally thought by the PCP. There is nothing on the CAT scan this protruding nor is there any large mass on the right side that would explain the flank bulging. PET imaging will help with this as well. The patient has been a smoker his entire life. Although he has a minimal past medical history, I would do baseline PFTs and echocardiogram prior to treatment to get a better feeling for his current heart and lung function. i will defer these for now, as I do not know when therapy will be initiated. I reviewed the need for labs today as well as a PET scan. This should be done within one to two weeks. I can then see him back in clinic to review both of the results with him and our plan for treatment. I reassured the patient and his family, that at this time (without staging studies) he has no signs or symptoms that would make me think that he is going to need urgent therapy. Of course, staging studies will be important in determining this decision. I discussed all of the above with the patient and all of his questions were answered. Support and counseling given as appropriate. This note was written or modified using [employer] Sifang voice recognition software. The final note was screened for mistakes. Please excuse any remaining errors. total time: time in counselling: Copy NATY ROBLES MD (General) documented in this encounter Plan of Treatment Upcoming Encounters Date Type Department Care Team (Late st Contact Info) Description 11/09/2024 10:30 AM EDT Office Visit Radiation Oncology at [address] [phone] Taya De La Vega PA [facility] DR HEMATOLOGY [place] [address] 11/13/2024 2:00 PM EDT Office Visit Hematology/Oncology at [address] [phone] Kirt Kennedy MD [facility] [address] HEMATOLOG[place] [address] Alem Lazaro APRN [address] [place] [address] DR [place] [address] documented as of this encounter Procedures Procedure Name Priority Date/Time Associated Diagnosis Comments IMMUNOGLOBULINS, QUANTITATIVE STAT 04/03/2015 3:27 PM EDT Follicular lymphoma HEMOGRAM STAT 04/03/2015 3:27 PM EDT Follicular lymphoma DIFFERENTIAL, AUTOMATED STAT 04/03/2015 3:27 PM EDT Follicular lymphoma HEPATITIS C ANTIBODY STAT 04/03/2015 3:27 PM EDT Follicular lymphoma HEPATITIS B CORE ANTIBODY, TOTAL STAT 04/03/2015 3:27 PM EDT Follicular lymphoma HIV SCREEN, 4TH GENERATION ([facility]) STAT 04/03/2015 3:27 PM EDT Follicular lymphoma HEPATITIS B SURFACE ANTIBODY STAT 04/03/2015 3:27 PM EDT Follicular lymphoma HEPATITIS B SURFACE ANTIGEN STAT 04/03/2015 3:27 PM EDT Follicular lymphoma CBC (WITH DIFF) STAT 04/03/2015 3:27 PM EDT Follicular lymphoma PROTEIN ELECTROPHORESIS, SERUM STAT 04/03/2015 3:27 PM EDT Follicular lymphoma LACTATE DEHYDROGENASE STAT 04/03/2015 3:27 PM EDT Follicular lymphoma COMPREHENSIVE METABOLIC PANEL STAT 04/03/2015 3:27 PM EDT Follicular lymphoma documented in this encounter Results * PET/CT [...] Thank you for referring this patient to [facility]. This report was reviewed by Daren Davis at 04/15/2015 5:54 PM Film and interpretation reviewed by the attending Narrative 04/15/2015 5:59 PM EDT EXAMINATION: PET/CT STANDARD (Skull base to Mid-thigh) CLINICAL HISTORY: staging lymphoma TECHNIQUE: Procedure: Following IV injection of 97-xlided-0-deoxyglucose (FDG) a standard uptake of approximately 60 [...] lymphoma TECHNIQUE: Procedure: Following IV injection of 46-cnbebh-2-deoxyglucose(FDG) a standard uptake of approximately 60 minutes, [...] Thank you for referring this patient to [facility]. This report was reviewed by Daren Davis at 04/15/2015 5:54 PM Film and interpretation reviewed by the attending Eileen Cheung MD IMG PET ORDERABL ES * Differential, Automated (04/03/2015 3:27 PM EDT) Neutrophil % 58.0 % CERNER MILLENNIUM Neutrophil Absolute 3.47 1.50 - 6.30 x10(3)/mcL CERNER MILLENNIUM Lymph % 25.3 % CERNER MILLENNIUM Lymphocytes Abs 1.5 1.0 - 3.6 x10(3)/mcL CERNER MILLENNIUM Monocyte % 12.9 % CERNER MILLENNIUM Monocyte Abs 0.8 0.2 - 1.0 x10(3)/mcL CERNER MILLENNIUM Eos % 2.8 % CERNER MILLENNIUM Eosinophils Abs 0.2 0.0 - 0.5 x10(3)/mcL CERNER MILLENNIUM Basophil % 0.5 % CERNER MILLENNIUM Baso Absolute 0.0 0.0 - 0.2 x10(3)/mcL CERNER MILLENNIUM Immature Gran % 0.50 % CERN ER MILLENNIUM Comment: Immature granulocytes(IG's)percentage and absolute count will include metamyelocytes, myelocytes, and promyelocytes. Blood smears from CBCs yielding IG's will be scanned manually for concordance. If this scan disagrees with the automated IG or if promyelocytes are noted, a manual differential will be performed. Immature Gran Absolute 0.03 0.00 - 0.05 x10(3)/mcL CERNER MILLENNIUM Blood specimen (specimen) 04/03/2015 3:27 PM EDT 04/03/2015 3:43 PM EDT Narrative Resulting Agency Comment Spec In Lab Eileen Cheung MD HEMATOLOGY ORDER YESSY Performing Organization Address City/[facility]/ZIP Co de Phone Number CERBRADY PINONENNIUM * (ABNORMAL) Hemogram (04/03/2015 3:27 PM EDT) White Blood Cell 6.0 4.0 - 10.0 x10(3)/mc L CERNER MILLENNIUM Red Blood Cell 5.03 4.63 - 6.08 x10(6)/mc L CERNER MILLENNIUM Hemoglobin 15.9 13.7 - 17.5 gm/dL CERNER MILLENNIUM Hematocrit 47.4 40.0 - 51.0 % CERNER MILLENNIUM Mean Cell Volume 94.2(H) 79.0 - 92.0 fL CERNER MILLENNIUM Mean Cell Hemoglobin 31.6 25.6 - 32.2 pg CERNER MILLENNIUM Mean Cell Hemoglobin Concentration 33.5 32.0 - 36.5 gm/dL CERNER MILLENNIUM Platelet 122(L) 145 - 370 x10(3)/mc L CERNER MILLENNIUM RDW Standard Deviation 44.4 35.0 - 46.0 fL CERNER MILLENNIUM RDW coefficient of variation 12.9 10.9 - 14.4 % CERNER MILLENNIUM Mean Platelet Volume 9.8 9.0 - 12.0 fL CERNER MILLENNIUM Blood specimen (specimen) 04/03/2015 3:27 PM EDT 04/03/2015 3:43 PM EDT Narrative Resulting Agency Comment Spec In Lab Eileen Cheung MD HEMATOLOGY ORDER YESSY CERBRADY PINONENNIUM * Immunoglobulins, Quantitative (04/03/2015 3:27 PM EDT) Pathologist [facility] Immunoglobulin G 949 700 - 1,600 mg/dL CERNER MILLENNIUM IgA 231 70 - 400 mg/dL CERNER MILLENNIUM IgM 158 40 - 230 mg/dL CERNER MILLENNIUM Blood specimen (specimen) 04/03/2015 3:27 PM EDT 04/03/2015 3:43 PM EDT Narrative Resulting Agency Comment Spec In Lab Eileen Cheung MD CHEMISTRY ORDERA [email or web address] Performing Organization Address [facility] de Phone Number HAFSA PINONENNIUM * Protein Electrophoresis, serum (04/03/2015 3:27 PM EDT) Pathologist [facility] Total Prot Electrophoresis 6.6 6.1 - 8.0 gm/dL CERNER MILLENNIUM Albumin Electrophoresis 4.31 3.60 - 6.00 gm/dL CERNER MILLENNIUM Alpha 1 Globulin 0.17 0.10 - 0.30 gm/dL CERNER MILLENNIUM Alpha 2 Globulin 0.61 0.40 - 0.90 gm/dL CERNER MILLENNIUM Beta Globulin 0.60 0.50 - 1.00 gm/dL CERNER MILLENNIUM Gamma Globulin 0.90 0.50 - 1.30 gm/dL CERNER MILLENNIUM M1 Band None Detected None Detected gm/dL CERNER MILLENNIUM Scan See Note CERNER MILLENNIUM Comment:Please see scanned r eport in Chart Review under the [facility] Heading. Blood specimen (specimen) 04/03/2015 3:27 PM EDT 04/03/2015 3:43 PM EDT Narrative Resulting Agency Comment Spec In Lab Eileen Cheung MD CHEMISTRY ORDERA [email or web address] Performing Organization Address [facility] Co de Phone Number HAFSA MCPHERSONIUM * HIV Screen, 4th Generation (04/03/2015 3:27 PM EDT) Pathologist [facility] HIV Ab/Ag Screen Negative Negative [facility] MILLENNIUM Comment: This 4th Generation HIV test screens for the presence of the HIV-1 p24 antigen as well as antibodies reactive against HIV-1 and HIV-2. A negative screen does not rule out an acute HIV infection. If acute HIV infection is suspected, testing should be repeated in 2 - 3 weeks or HIV nucleic acid testing performed. Blood specimen (specimen) 04/03/2015 3:27 PM EDT 04/03/2015 3:43 PM EDT Narrative Resulting Agency Comment Spec In Lab Eileen Cheung MD CHEMISTRY ORDERA BLES Performing Organization Address [facility] de Phone Number [facility] * Hepatitis C Antibody (04/03/2015 3:27 PM EDT) Hepatitis C Antibody Negative Negative [facility] Blood specimen (specimen) 04/03/2015 3:27 PM EDT 04/03/2015 3:43 PM EDT Narrative Resulting Agency Comment Spec In Lab Eileen Cheung MD CHEMISTRY ORDERA BLES Performing Organization Address [facility] de Phone Number [facility] * Hepatitis B Surface Antigen (04/03/2015 3:27 PM EDT) Hepatitis B Surface Antigen Negative Negative [facility] Blood specimen (specimen) 04/03/2015 3:27 PM EDT 04/03/2015 3:43 PM EDT Narrative Resulting Agency Comment Spec In Lab Eileen Cheung MD CHEMISTRY ORDERA BLES Performing Organization Address [facility] de Phone Number [facility] * Hepatitis B Surface Antibody (04/03/2015 3:27 PM EDT) Hepatitis B Surface Antibody Negative [facility] Comment: Expected Results: Vaccinated: Positive Unvaccinated: Negative Please note: A positive result for this assay is consistent with a concentration of anti-HBs antibodies >10mIU/ml, which indicates that anti-HBs antibodies have been detected at levels consistent with protective immunity against HBV infection. Blood specimen (specimen) 04/03/2015 3:27 PM EDT 04/03/2015 3:43 PM EDT Narrative Resulting Agency Comment Spec In Lab Eileen Cheung MD CHEMISTRY ORDERA BLEHusam Performing Organization Address [facility] Co de Phone Number [facility] KATHRINSIERRA TUCSONIUM * Hepatitis B Core Antibody, Total (04/03/2015 3:27 PM EDT) Hepatitis B Core Antibody Negative Negative [facility] Blood specimen (specimen) 04/03/2015 3:27 PM EDT 04/03/2015 3:43 PM EDT Narrative Resulting Agency Comment Spec In Lab Eileen Cheung MD CHEMISTRY ORDERA BLEHusam Performing Organization Address [facility] de Phone Number [facility] KATHRINSIERRA TUCSONIUM * Lactate Dehydrogenase (04/03/2015 3:27 PM EDT) Lactate Dehydrogenase 160 110 - 220 unit/L [facility] Blood specimen (specimen) 04/03/2015 3:27 PM EDT 04/03/2015 3:43 PM EDT Narrative Resulting Agency Comment Spec In Lab Eileen Cheung MD CHEMISTRY ORDERA BLES Performing Organization Address [facility] de Phone Number [facility] * (ABNORMAL) Comprehensive metabolic panel (non-fasting) (04/03/2015 3:27 PM EDT) Glucose 117 65 - 199 mg/dL [facility] Comment:Diabetes: >=200 mg/d L plus symptoms Blood Urea Nitrogen 9(L) 10 - 20 mg/dL [facility] MILLENNIUM Creatinine 0.93 0.80 - 1.50 mg/dL [facility] MILLENNIUM Comment: Please note that the pediatric reference intervals supplied above were not validated at [facility]. Results from pediatric patients should be interpreted in conjunction to the patient's age, height and muscle mass. Sodium 142 135 - 145 mmol/L [facility] Potassium 3.9 3.5 - 5.0 mmol/L [facility] Comment: Please note: ??Patients with WBC >100,000 may have falsely elevated Potassium levels. ??For accurate Potassium quantification in these patients send serum separator tube (gold top) for subsequent determinations. ??Contact the Clinical Chemistry Laboratory if there are any questions. Chloride 104 98 - 107 mmol/L CERNER MILLENNIUM Carbon Dioxide 30 22 - 31 mmol/L CERNER MILLENNIUM Anion Gap 8 5 - 15 mmol/L CERNER MILLENNIUM Calcium 9.0 8.5 - 10.5 mg/dL CERNER MILLENNIUM Protein, Total 6.9 6.1 - 8.0 gm/dL CERNER MILLENNIUM Albumin 4.2 3.2 - 5.2 gm/dL CERNER MILLENNIUM Aspartate Aminotransferase 23 0 - 39 unit/L CERNER MILLENNIUM Alanine Aminotransferase 26 0 - 55 unit/L CERNER MILLENNIUM Alkaline Phosphatase 93 40 - 120 unit/L CERNER MILLENNIUM Bilirubin, Total 0.5 0.2 - 1.3 mg/dL CERNER MILLENNIUM Bilirubin, Direct 0.1 0.0 - 0.3 mg/dL [facility]ERN[facility] MILLENNIUM Est Glomerular Filtration Rate >60 >=60 CERNER MILLENNIUM Comment: This estimated GFR (eGFR) value was calculated using the MDRD equation which has been validated on patients between the ages of 18 and 70. The MDRD should not be used to assess kidney function in patients < 18 years of age or in patients with extremes of body mass, or in patients with acute kidney failure. This value should be multiplied by 1.2 for patients. For further information please copy and paste the following links into your internet browser. http://[email or web address]/DHnkdep [email or web address]://[employer]/DHMCnkf Blood specimen (specimen) 04/03/2015 3:27 PM EDT 04/03/2015 3:43 PM EDT Narrative Resulting Agency Comment Spec In Lab Eileen Cheung MD CHEMISTRY ORDERA [facility] Organization Address City/State/ZIP Co de Phone Number CERNER MILLENNIUM documented in this encounter Visit Diagnoses Diagnosis Follicular lymphoma Nodular lymphoma, unspecified site, extranodal and solid organ sites Follicular lymphoma Nodular lymphoma, unspecified site, extranodal and solid organ sites documented in this encounter Care Teams Novelty Twister Tender Relationship Specialty Start Date End Date Naty Robles MD [phone] [place] [address] PCP - General 03/18/15 08/22/19 documented as of this encounter
--- OUTSIDE RECORDS SUMMARY | 2024-05-24 19:30 | XMS_ITS | Encounter Summary ---
Author Organization [facility] Address [facility] [address] Care Team Providers Care Stone Planer Name Role Phone Alfredo Montoya DO Primary Care Provider [phone] Reason for Visit * Consultation (Routine) - Closed Specialty Diagnoses / Procedures Referred By Contac t Referred To Contact Hematology and Oncology Diagnoses Follicular lymphoma, unspecified, unspecified site Follicular lymphoma, unspecified, unspecified site Procedures TREATMENT OPTIONS Alfredo Montoya DO [address] [place] [phone] Kirt Kennedy MD [address] [place] [address] [place] [address] Referral ID Status Reason Start Date Expiration Date Visits Re quested Visits Authorized [id number] Closed 06/11/2020 06/11/2021 1 1 Encounter Details Date Type Department Care Team (Late st Contact Info) Description 06/24/2020 2:00 PM EST Office Visit Hematology/Oncology at [address] [phone] Kirt Kennedy MD [facility] DR [place] [address] Follicular lymphoma, unspecified grade, unspecified body region (Primary Dx); Malignant neoplasm of prostate Social History Tobacco Use Types Packs/Day Years Used Date Smoking Tobacco: Every Day Cigarettes 1 60.8 Started: 1964 Smokeless Tobacco: Never Alcohol Use Standard Drinks/Week [...] Sign Reading Time Taken Comments Blood Pressure 141/82 06/24/2020 2:04 PM EST Pulse 57 06/24/2020 2:04 PM EST Temperature 36.1 ??C (96.9 ??F) 06/24/2020 2:04 PM ES T Respiratory Rate 18 06/24/2020 2:04 PM EST Oxygen Saturation 100% 06/24/2020 2:04 PM EST Inhaled Oxygen Concentration - - Weight 68.9 kg (151 lb 12.8 oz) 06/24/2020 2:04 PM EST Height 174.5 cm (5' 8.7) 06/24/2020 2:04 PM EST Body Mass Index 22.61 06/24/2020 2:04 PM EST documented in this encounter Progress Notes * Bharati Johnson RN - 06/24/2020 2:00 PM EST MEDICAL ONCOLOGY INITIAL NURSING ASSESSMENT ADVANCE DIRECTIVES: In [facility] [ ] Has documents [ ] Will bring in [X ] IF NO: Advance Directive pamphlet provided : Referral to Care Management : PRESENTING SYSTEMS and PATHOLOGY: REVIEW OF SYSTEMS: Prior Radiotherapy: no[ ] Yes[ X ]Site _Prostate Date___February 2020 Facility_[facility]- Prior Chemotherapy: no[ ] Yes[X ] Drug: Oncologist- [facility] in [facility] LastTreatment: ~1 yr ago NO: YES: Claustrophobia or requires sedation for MRIs X Allergy to CT or MRI contrast agent or iodine or shellfish X Diabetic and on metformin X Metal in body, implanted device, worked with metal, body piercings,braces X ? unknown Dentures or hearing device X hearing aids Pacemaker X Difficulty breathing while lying flat X Kidney problems/creatinine X Balance difficulty: [X ]no [ ]yes At risk for fall: [ ] no [ ] yes If yes, actions implemented to prevent fall. ADL [ X ] no limits [ ] needs dressing assistance [ ] needs meal assistance Assistive device:[ X ]none [ ]cane [ ]walker [ ]wheelchair [ ]other: explain PAIN ASSESSMENT: [ 8-9 ] out of 10 Location: bilateral shoulders-chronic Description: [ ] Dull [X ] Sharp [ ] Burning [ ] Throbbing [X ] Radiating - down arms [ ] Continuous [X ]Intermittent Aggravating Factors: [X ] Movement [ X ] Position [ ]Immobility [ ]Other Alleviating Factors: [ ]Medication [X ] Positioning [ ] Other Current Pain Management Plan: [ X ]Satisfied [ ] Not satisfied SOCIAL ASSESSMENT: See EDH social assessment information entered. Support Systems: transportation plan: [X ]private vehicle-with [ ] RCT needs Social Work referral [ ] Unknown at this time needs Social Work referral Barriers to treatment: none Referrals/Interventions: LEARNING STYLE: Visual and verbal, wants written material and verbal discussion. * Kirt Kennedy MD - 06/24/2020 2:00 PM [place] [address] [phone] Narcisa Eduardo is being seen for the evaluation of follicular lymphoma. Assessment & Plan: Narcisa Eduardo is a 74 y.o. male patient with a PMH of an abdominal aortic aneurysm, thoracic aortic aneurysm, hypertension, prior alcohol abuse, tobacco abuse, A stroke in early 2019 and follicular lymphoma who recently completed EBRT for localized prostate cancer who wishes to followup here in [facility] for his lymphoma rather than [facility] given the proximity to his home. He was last treated for his follicular lymphoma back in 2015 as detailed below. We discussed the fact that it is unlikely that he is cured but that he does appear to be in remission. His recent labs are reviewed and unremarkable. His most recent imaging from November of this year does not indicate anyadenopathy at this time. Clinically while he is still recovering from his recent prostate cancer treatment course he seems to be doing well. We discussed [...] time unless there was a clinical change. Will have him return in the Spring with labs at that time Kirt Kennedy MD, MS 06/24/2020 [facility] CC: DO Angelica Guadalupe MD HPI/Interval History/Subjective: Narcisa Eduardo is a 74 y.o. male patient with a PMH of an abdominal aortic aneurysm, thoracic aortic aneurysm, hypertension, prior alcohol abuse, tobacco abuse, A stroke in early 2019 and follicular lymphoma who recently completed EBRT for localized prostate cancer who wishes to followup here in [facility] for his lymphoma rather than at the [facility] given the proximity to his home. The [...] received treatment for his lymphoma back in 2016. He does not have any residual issues related to his treatment. He has not noted any changes in terms of new or progressive adenopathy, fevers, night sweats, unintentional weight loss or frequent infections. 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 10/24 ppd. X30-40 years Alcohol use: Stopped drinking in 09/2019 after a stroke when he was placed on Plavix Drug use: None Loves gardening but can't do it any more. service: [employer]. [place] Era. Had Agent Murray Exposure. 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 [facility] by Dr. Martha Castañeda - PET-CT 11/26/15 [...] (he opted to not receive ADT) at [facility] with Dr. Evans 02/26-04/26/20 97.2 Gy in 44 fractions PMH: 1. AAA - Abdominal aortic aneurysm 2. Thoracic aortic aneurysm without rupture 3. Follicular non-Hodgkin lymphoma, small cleaved cell 4. Tobacco dependence 5. Alcohol dependence 6. Hypertension 7. Family history of prostate cancer 8. Family history of malignant neoplasm of breast 9. Personal History of Exposure to Agent Murray No flowsheet data found. Patient Active Problem List Diagnosis Date Noted ??? Malignant neoplasm of prostate 01/05/2020 ??? Follicular lymphoma 04/03/2015 Allergies Allergen Reactions ??? Contrast [Iodine And Iodide Containing Products] Hives Medications 04/25/20 0950 Medication Sig Taking? senna (Senokot) 8.6 mg Tablet Take 1 tablet by mouth daily as needed for Constipation. loperamide (IMODIUM A-D) 2 mg Tablet Take by mouth 4 times daily as needed for Diarrhea. Maximum 16mg in 24 hours Psyllium Seed-Sucrose (0) Powder Take by mouth as needed (taking it about QOD). tamsulosin (Flomax) 0.4 mg Capsule Take 1 capsule by mouth nightly. Patient not taking: Reported on 03/21/2020 ergocalciferol, vitamin D2, (VITAMIN D ORAL) Take by mouth daily. atorvastatin (Lipitor) 80 mg Tablet Take 80 mg by mouth daily. lisinopriL (Prinivil;Zestril) 10 mg Tablet Take 10 mg by mouth daily. clopidogreL (Plavix) 75 mg Tablet Take 75 mg by mouth daily. I reviewed the problem list, allergies, medications, past medical history, social history and family history within the EPIC encounter. Pertinent details are noted above. Review of Systems Constitutional: Positive for activity change. Negative for appetite change, chills, diaphoresis, fatigue, fever and unexpected weight change. HENT: Negative for mouth sores, sinus pain and trouble swallowing. Eyes: Negative for visual disturbance. Respiratory: Negative for cough, shortness of breath, wheezing and stridor. Cardiovascular: Negative for chest pain and palpitations. Gastrointestinal: Negative for abdominal pain, constipation, nausea and vomiting. Endocrine: Negative for polydipsia and polyphagia. Genitourinary: Negative for difficulty urinating, dysuria and hematuria. Musculoskeletal: Negative for arthralgias, joint swelling and myalgias. Skin: Negative for color change, rash and wound. Neurological: Negative for dizziness, seizures and headaches. Hematological: Negative for adenopathy. Does not bruise/bleed easily. Psychiatric/Behavioral: Negative for agitation and behavioral problems. Physical Exam: Wt Readings from Last 3 Encounters: 06/24/20 68.9 kg (151 lb 12.8 oz) 04/25/20 70.9 kg (156 lb 6.4 oz) 04/18/20 71.6 kg (157 lb 12.8 oz) Temp Readings from Last 3 Encounters: 06/24/20 36.1 ??C (96.9 ??F) (Temporal) 04/25/20 36.5 ??C (97.7 ??F) (Temporal) 04/18/20 36 ??C (96.8 ??F) (Temporal) BP Readings from Last 3 Encounters: 06/24/20 141/82 04/25/20 144/82 04/18/20 129/78 Pulse Readings from Last 3 Encounters: 06/24/20 57 04/25/20 67 04/18/20 50 Body surface area is 1.83 meters squared. Wt Readings from Last 3 Encounters: 06/24/20 68.9 kg (151 lb 12.8 oz) 04/25/20 70.9 kg (156 lb 6.4 oz) 04/18/20 71.6 kg (157 lb 12.8 oz) KPS Score ECOG Grade [...] to bed or chair Physical Exam Vitals signs reviewed. Constitutional: General: He is not in [...] General: Bowel sounds are normal. There is no distension. Palpations: Abdomen is soft. There is no mass. Tenderness: There is no abdominal tenderness. Musculoskeletal: Normal range of motion. General: No swelling or tenderness. Right lower leg: No edema. Left [...] Judgment: Judgment normal. Review of Laboratory Data: I reviewed the labs from 06/18/2020 white blood cell count normal at 6.0, hemoglobin 14.7 [id number] absolute neutrophil count 4.6 absolute lymphocyte count [...] inguinal node 03/18/15; taken from the [facility] pathology report - Follicular lymphoma NOTE: Sections [...] grade or diffuse process is not excluded. Kirt Kennedy MD, MS 06/24/2020 [facility] documented in this encounter Plan of Treatment Upcoming Encounters Date Type Department Care Team (Late st Contact Info) Description 11/09/2024 10:30 AM EDT Office Visit Radiation Oncology at [address] [phone] Taya De La Vega PA [facility] DR [place] [address] 11/13/2024 2:00 PM EDT Office Visit Hematology/Oncology at [address] [phone] Kirt Kennedy MD [facility] DR [place] [address] Alem Lazaro APRN [address] [place] [address] DR HEMATOLOGY AND ONCOLOGY [place], [place] [address] documented as of this encounter Visit Diagnoses Diagnosis Follicular lymphoma, unspecified grade, unspecified body region- Primary Malignant neoplasm of prostate documented in this encounter Care Teams Stone Planer Relationship Specialty Start Date End Date Alfredo Montoya DO [address] [place] [id number] PCP - General Internal Medicine 12/04/19 04/27/23 documented as of this encounter
--- OUTSIDE RECORDS SUMMARY | 2024-05-24 19:31 | XMS_ITS | Encounter Summary ---
Author Organization [facility] [place] [address] Care Team Providers Care Rotary Drill Operator Helper Name Role Phone Robson Robles MD Primary Care Provider [phone] Encounter Details Date Type Department Care Team (Late Contact Info) Description 03/08/2015 Orders Only Hematology/Oncology at [address] [phone] Al Mancilla MD [address] [place] [phone] Social History Tobacco Use Types Packs/Day Years [...] EDT Office Visit Radiation Oncology at [address] [phone] Taya De La Vega PA [facility] [address] [place] [address] 11/13/2024 2:00 PM EDT Office Visit Hematology/Oncology at [address] [phone] Kirt Kennedy MD [facility] [place] [address] Alem Lazaro, [employer] [address] HEMATOLOGY [place] [address] documented as of this encounter Procedures Procedure Name Priority Date/Time Associated Diagnosis Comments FILM LIBRARY STORAGE ONLY CT CHEST Routine 03/08/2015 9:19 AM EDT documented in this encounter Results * Film Library- Storage only CT Chest (03/08/2015 9:19 AM EDT) Anatomical Region Laterality Modality Chest Other 03/08/2015 9:19 AM EDT Narrative 03/27/2015 9:24 AM EDT This is a Non-reportable exam Procedure Note EDUAR, UNSIGNED REPORT - 03/27/2015 This is a Non-reportable exam Al Mancilla MD [facility] FILM LIBRARY ORD ERABLES documented in this encounter Visit Diagnoses Not on filedocumented in this encounter Care Teams Rotary Drill Operator Helper Relationship Specialty Start Date End Date Robson Robles MD [address] [facility] [place], [place] [phone] PCP - General 03/18/15 08/22/19 documented as of this encounter
--- OUTSIDE RECORDS SUMMARY | 2024-05-24 19:31 | XMS_ITS | Encounter Summary ---
Author Organization Replaced By [facility] Address [facility] [place] [address] Care Team Providers Care Oil Field Pumper Name Role Phone Unknown Primary Care Provider Unavailabl e Encounter Details Date Type Department Care Team (Late st Contact Info) Description 03/07/2015 Orders [place] [phone] Tavo Dumont MD [facility] DR [place] [address] Social History Tobacco Use Types Packs/Day Years Used Date Smoking Tobacco: Never Assessed Sex and Gender Information Value Date Recorded Sex Assigned at Not on file Gender Identity Not on file Sexual Orientation Not on file documented as of this encounter Progress Notes * Tavo Dumont MD - 03/07/2015 9:16 AM EDT FOCUSED H&P and PRE-PROCEDURE VIR NOTE: Referring Physician: Je Durham ([facility]) Planned Procedure: Para-aortic node biopsy Procedure Indication: Periaortic and iliac lymphadenopathy Presenting Diagnosis/ Complaint: Narcisa Eduardo is a 69 y.o. male with HTN, tob, EtOH Sent for right flank mass/suspected flank hernia x 3 weeks. Fall on side 6 wk prior. No surgeries. Bulge on side. CT identified periaortic, bilateral iliac ajay lymphadenopathy. Asymptomatic small abdominal aortic aneurysm. Denies GI changes, fever/chills, weight loss. Past Medical/Surgical History: HTN Smoker 0.5 pk/d EtOH Medications: Atenolol 20 mg po daily Allergies: No known allergies Social History and Habits: History Social History ??? Marital Status: N/A Spouse Name: N/A Number of Children: N/A ??? Years of Education: N/A Occupational History ??? Not on file. Social History Main Topics ??? Smoking status: Not on file ??? Smokeless tobacco: Not on file ??? Alcohol Use: Not on file ??? Drug Use: Not on file ??? Sexual Activity: Not on file Other Topics Concern ??? Not on file Social History Narrative ??? No narrative on file Significant Family History: Father : prostate ca Physical Exam: [facility]: T 36.1, P 78, BP 146/82 Pnding Labs: [facility] 03/05/15: Cr 0.9 Prior Imaging: CT 03/06/15 : L> R iilac lymphadenopathy (up to 4 x 2.2 cm, large), 3 x 3.6 node adjacent to L TALIA, small nodes along abd aorta. 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 Assessment: Asymptomatic abdominal aortic < iliac, L>R adenopathy. Plan: CT-guieded biopsy Labs: [per IR/CT protocol] Prophylactic antibiotic: [none] Medications to discontinue (and when): [none] Patient Position: [supine] Access site: Left low pelvis General Anesthesia: [no] documented in this encounter Plan of Treatment Upcoming Encounters Date Type Department Care Team (Late st Contact Info) Description 11/09/2024 10:30 AM EDT Office Visit Radiation Oncology at [address] [phone] Taya De La Vega PA [facility] DR HEMATOLOGY [place] [address] 11/13/2024 2:00 PM EDT Office Visit Hematology/Oncology at [address] [phone] Kirt Kennedy MD [facility] DR HEMATOLOGY [place] [address] Alem Lazaro APRN [address] [place] [address] DR [place] [address] documented as of this encounter Visit Diagnoses Not on filedocumented in this encounter Care Teams Oil Field Pumper Relationship Specialty Start Date End Date Unknown None PCP - General 07/15/10 03/17/15 documented as of this encounter
--- OUTSIDE RECORDS SUMMARY | 2024-05-24 19:31 | XMS_ITS | Encounter Summary ---
Author Organization [facility] [place] [address] Care Team Providers Care Slicing Machine Tender Name Role Phone Naty Robles MD Primary Care Provider [phone] Encounter Details Date Type Department Care Team (Latest Contact Info) Description 03/18/2015 1:30 PM EDT - 03/18/2015 11:59 PM EDT Hospital [place] [id number] CLINIC, Alicia Reich MD [facility] [place] [address] Discharge Disposition: Home Social History Tobacco Use Types Packs/Day Years Used Date Smoking Tobacco: Never Assessed Sex and Gender Information Value Date Recorded Sex Assigned at Not on file Gender Identity Not on file Sexual Orientation Not on file documented as of this encounter Last Filed Vital Signs Vital Sign Reading Time Taken Comments Blood Pressure 132/68 03/18/2015 4:15 PM EDT Pulse 64 03/18/2015 4:15 PM EDT Temperature 37.1 ??C (98.8 ??F) 03/18/2015 3:55 PM ED T Respiratory Rate 18 03/18/2015 4:15 PM EDT Oxygen Saturation 90% 03/18/2015 4:15 PM EDT Inhaled Oxygen Concentration - - Weight - - Height - - Body Mass Index - - documented in this encounter Discharge Instructions * Discharge Instructions* Melvina Solis RN - 03/18/2015 3:58 PM EDT [facility] Vascular and Interventional Radiology Biopsy Discharge Instructions Left pertoneal biopsy: call your doctor immediately if you develop a sudden onset of weakness, increased pain or swelling at the biopsy site or heavy bleeding at the biopsy site. Activity And Diet: ??? Go home and rest quietly for the remainder of the day. You may resume your normal activities tomorrow. ??? Resume your usual diet after the procedure. ??? Do not drive, sign any important/legal documents, or make any important decisions for 24 hours following sedation medications. When to call your healthcare provider: ??? If you see any redness, swelling or drainage at the biopsy site. ??? If you develop chills. ??? If you have a fever greater than or equal to 101 degrees Fahrenheit. ??? If you develop pain around the biopsy site. Bandage: ??? Check the dressing/bandaid throughout the day for an increase in drainage. Keep the biopsy sitedry for 24 hours. Replace the bandaid as needed. You may shower 24 hours after the biopsy. Medication: ??? DO NOT take aspirin-containing products, ibuprofen, or blood-thinning medication for the next 24 hours unless your doctor says you may do so. ??? Generally you may use acetaminophen as needed for discomfort unless you have liver disease and are instructed not to take acetaminophen. Biopsy Results ??? The results of your biopsy should be available within 5 business days and will be reported to you by your primary resident care associate or the clinician who ordered the biopsy. Please do not call us forresults as we will not have them. ??? If you have not been contacted by your clinician within 5 business days you should call that office for further information. When to call the Interventional Radiology Department: Please call with any questions or concerns. If it is during regular office hours, please call [phone]. If it is after regular office hours, or on weekends or holidays, please call [phone] and ask to speak to the Clothing Examiner online communications specialist for Interventional Radiology. x You have received medication during your procedure to help lesson anxiety and keep you comfortable. These medications affect judgement and reaction time. We recommend that you do not drive, operateequipment, sign any important documents, or smoke unattended for 24 hours following your procedure. Because of the sedation, be careful on stairs, as you may be unsteady on your feet. You may resume your regular diet as tolerated. IV site -- slight redness, or tenderness is normal, you can use a warm compress. If tenderness and redness increases or foul drainage occurs, please contact your M. D. Revised 09/04/11 documented in this encounter Medications at Time of Discharge Medication Sig Dispensed Refills Start Date End Date atenolol (TENORMIN) 25 mg Tablet Take 25 mg by mouth daily. 01/08/2020 documented as of this encounter Progress Notes * Kristine Rose RN - 03/19/2015 9:53 AM EDT Interventional and Vascular Radiology Post-Procedure Call Name: Galina Loyd Age: 69 y.o. Sex; Male Date of : 1945 (home) No relevant phone numbers on file. PCP NATY ROBLES MD (General) [phone] Date/Time of call: March 19, 2015/9:53 AM Procedure: CT guided left iliac node biopsy Procedural Provider: Cathie Kumar Contact with patient or if not, with whom? Yes Are you having pain related to your procedure now? none Are you having any swelling or bleeding from the site? none Are there any improvement in your symptoms? na Are you having any other problems related to your procedure? none Comments: Did you understand the discharge instructions given and do you have any questions? Yes. Pt did havequestion about a mystery bandage that was located on a different part of his abdomen that he reports wasn't the site of the biopsy and otherwise doesn't have any drains or devices coming out of abdomen. Comments: Do you have any comments about your Nurse or Provider or the care you received? none Nurse Comments: * Betzaida Kumar DO - 03/18/2015 2:44 PM EDT CV: RRR, no m/r/g Lungs: CTAB ASA Classification ___ Class 1 Healthy patient, no medical problems __x_ Class 2 Mild systemic disease ___ Class 3 Severe systemic disease, but not incapacitating ___ Class 4 Severe systemic disease that is a constant threat to life ___ Class 5 Moribund, not expected to live 24 hours irrespective of operation Mallampati Classification ___ Class I: soft palate, fauces, uvula, pillars _x__ Class II: soft palate, fauces, portion of uvula ___ Class III: soft palate, base of uvula ___ Class IV: hard palate only * Oriana Deshpande RN - 03/13/2015 2:35 PM EDT [facility] NURSING DATABASE Name: GALINA LOYD Date of : 1945 AGE 69 y.o. Address: [address] [place] [phone] (home) Mobile: No relevant phone numbers on file. Referring Provider: Alicia Dumont REASON FOR VISIT: Plan: CT-guided Para-aortic node biopsy. 69 y.o. male with HTN, tob, EtOH Sent for right flank mass/suspected flank hernia x 3 weeks. Fall on side 6 wk prior. No surgeries. Bulge on side. CT identified periaortic, bilateral iliac ajay lymphadenopathy. Asymptomatic small abdominal aortic aneurysm. Denies GI changes, fever/chills, weight loss. (Assessment/plan from provider's note, bottom of page) Copy/paste from provider's note (for CT's) Labs: [per IR/CT protocol] Prophylactic antibiotic: [none] Medications to discontinue (and when): [none] Patient Position: [supine] Access site: Left low pelvis General Anesthesia: [no] No Known Allergies Pertinent PMH: HTN, smoker, ETOH 2 drinks per day Pertinent PSH: No past surgical history on file. Date/Procedure Med's given/comments CT guided Fentanyl 150 mcg, Versed 3 mg. Laboratory Results: No results found for: INR No components found for: PT/PTT No results found for: CREATININE No results found for: K No results found for: PLATELET Medications: Atenolol ++++ FOR OUTPATIENT SCAN'S: I have informed this patient that they require a regional owner operator truck driver to be present and in the building to drive them home after this procedure. In the absence of a regional owner operator truck driver, IR will not be able to perform this procedure and will need to reschedule. Pt verbalized understanding of these i nstructions during the pre-procedure education via phone. (initials) documented in this encounter Procedure Notes * Betzaida Kumar DO - 03/18/2015 3:50 PM EDTProcedure(s): CT GUIDED BIOPSY LYMPH NODE (HEAD/NECK) Pre-Procedure Diagnose(s): Abdominal lymphadenopathy Post-Procedure Diagnose(s): Abdominal lymphadenopathy VIR PROCEDURE NOTE : Procedure: CT-guided left parailiac lymph node biopsy Indication: Periaortic and iliac lymphadenopathy Technique: After discussing risks (including infection, hemorrhage,bowel perforation,) and benefits, patient consented to the procedure. Due to the painful nature of the procedure, split doses of fentanyl and versed were administered bythe IR nurse during continuous monitoring of pulse, blood pressure and oxygen saturation. Lesion was localized with CT. After sterile preparation of the overlying skin, 1% lidocaine SQ was administered for anesthesia, and a 19 coaxial needle system was advanced under CT guidance into the abdominal mass. 7 core samples were obtained. Patient tolerated the procedure well. There were no immediate complications. Post-procedure images were acquired. Findings: 1) 7 core samples were obtained under CT guidance. 2) Post-procedure images demonstrate no significant pelvic hematoma. Meds: Fentanyl 150 mcg IV, Versed 3 mg IV, 1% Lidocaine <10 cc Complications: none immediate Impression: CT guided left iliac node biopsy Resident: Betzaida Kumar DO Attending: Alfredo Brand MD Associated attestation - Alfredo Brand MD - 03/18/2015 5:00 PM EDT I, Dr. Brand, was present for the procedure. documented in this encounter Plan of Treatment Upcoming Encounters Date Type Department Care Team (Late st Contact Info) Description 11/09/2024 10:30 AM EDT Office Visit Radiation Oncology at [address] [phone] Taya De La Vega PA [facility] [place]AT[place] [address] 11/13/2024 2:00 PM EDT Office Visit Hematology/Oncology at [address] [phone] Kirt Kennedy MD [facility] [place]EMATOLOG[place] [address] Alem Lazaro APRN [address] [place] [address] DR HEMATOLOGY [place] [address] documented as of this encounter Procedures Procedure Name Priority Date/Time Associated Diagnosis Comments NON-NARCOTICS INVESTIGATOR FLOW CYTOMETRY REPORT Routine 03/18/2015 4:23 PM EDT NON-NARCOTICS INVESTIGATOR FINAL REPORT Routine 03/18/2015 4:[address] GUIDED BIOPSY LYMPH NODE HEAD/NECK Routine 03/18/2015 3:45 PM EDT CYTOPATHOLOGY NON-GYNECOLOGICAL Routine 03/18/2015 2:18 PM EDT IMMUNOPHENOTYPING FLOW CYTOMETRY (BLOOD) Routine 03/18/2015 2:17 PM EDT documented in this encounter Results * Non-NARCOTICS INVESTIGATOR Flow Cytometry Report (03/18/2015 4:23 PM EDT) Non-NARCOTICS INVESTIGATOR Flow Cytometry Report ? [facility] ? Provider: ?? ALICIA DUMONT ?Pt. Name: ?? EVERT, GALINA ? Acc #: ?[id number] ? Pt. ? Col Date: ?? 03/18/2015 ? /Sex: ?1945,(69 years),Male ? Rec Date: ?? 03/18/2015 ? LOC: ?3ZC ? ANALYTICAL CELL PATHOLOGY ? ---Clinical Information--- ? 69 yo male with lymphadenopathy. ? ---Preparation--- ? FCM: [id number] ? [id number] ? ---Markers--- ? Cells for immunophenotypic analysis were derived from a CT guided lymph ? node biopsy. ??CD45 vs side scatter gating was utilized to identify a ? lymphoid analysis region that comprises approximately 78-81% of all cells. ? The following markers were assesed: CD2, CD3, CD4, CD5, CD7, CD8, CD10, ? CD19, CD20, CD23, CD38, CD45, CD56, FMC7, kappa light chain and lambda ? light chain. ? ---Interpretation--- ? Diagnosis: Monoclonal, lambda-restricted CD10+ B-cell population identified ? (see Comment). ? 03/19/15 ? JRP ? 03/20/15 Verified by: ? BHASKAR ENNIS ? Hematopathologist ? (Electronic Signature) ? ---Comment--- ? B-cells in this lymph node biopsy specimen are monoclonal and lambda ? immunoglobulin light chain-restricted with the immunophenotype, CD19+ CD20+ ? CD10+ CD5- CD23+ FMC7+. CD3+ T-cells in the specimen have a mature ? immunophenotype with a mixture of CD4+ and CD8+ forms (CD4:CD8 ? approximately 5.8) without aberrant antigen loss or expression. In summary, ? these immunophenotypic findings are consistent with involvement of the ? lymph node by a monoclonal, lambda light chain-restricted CD10+ B-cell ? lymphoproliferative neoplasm and support the morphologic impression of ? follicular lymphoma (see separate report). ? Flow analysis is an ancillary study. A definite diagnosis requires ? correlation with the morphologic features of this process and if necessary, ? correlation with other ancillary studies like immunohistochemistry, enzyme ? cytochemistry and/or cyto/molecular genetics. ? This test was developed and its performance characteristics determined by ? the Clinical Flow Cytometry Laboratory at [facility]- ? [facility] ? Provider: ?? ALICIA DUMONT ?Pt. Name: ?? GALINA LOYD ? Acc #: ?[id number] ? Pt. ? Col Date: ?? 03/18/2015 ? /Sex: ?1945,(69 years),Male ? Rec Date: ?? 03/18/2015 ? LOC: ?3ZC ? ANALYTICAL CELL PATHOLOGY ? [facility]. It has not been cleared or approved by the U.S. ? Food and Drug Administration. ??The FDA has determined that such clearance ? or approval is not necessary. ??This test is used for clinical purposes. ??It ? should not be regarded as investigational or for research. ??This laboratory ? is certified under the Clinical Laboratory Improvement Act of 1988 (CLIA) ? as qualified to perform high complexity clinical laboratory testing. HAFSA BARDALES 03/18/2015 4:23 PM EDT Alicia Dumont MD PATHOLOGY/CYTOLOGY O THALIA HAFSA BARDALES * Non-Remote Coders Final Report (03/18/2015 4:23 PM EDT) Diagnosis Discussion [id number] ? Location: [facility] The signing pathologist has (i) examined the relevant preparation(s) for the specimen(s) and (ii) rendered or confirmed the diagnosis(es). . ? Pathology Flow Cytometry Report Clinical Information 69 yo male with lymphadenopathy. Preparation FCM: [id number] Markers Cells for immunophenotypic analysis were derived from a CT guided lymph node biopsy. CD45 vs side scatter gating was utilized to identify a lymphoid analysis region that comprises approximately 78-81% of all cells. The following markers were assesed: CD2, CD3, CD4, CD5, CD7, CD8, CD10, CD19, CD20, CD23, CD38, CD45, CD56, FMC7, kappa light chain and lambda light chain. Interpretation Diagnosis: Monoclonal, lambda-restricted CD10+ B-cell population identified (see Comment). 03/19/15 [facility] 03/20/15 Verified by: ? BHASKAR ENNIS ?Hematopathologist ?(Electronic Signature) Comment B-cells in this lymph node biopsy specimen are monoclonal and lambda immunoglobulin light chain-restricted with the immunophenotype, CD19+ CD20+ CD10+ CD5- CD23+ FMC7+. CD3+ T- cells in the specimen have a mature immunophenotype with a mixture of CD4+ and CD8+ forms (CD4:CD8 approximately 5.8) without aberrant antigen loss or expression. 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 Flow analysis is an ancillary study. A definite diagnosis requires correlation with the morphologic features of this process and if necessary, correlation with other ancillary studies like immunohistochemistry, enzyme cytochemistry and/or cyto/molecular genetics. This test was developed and its performance characteristics determined by the Clinical Flow Cytometry Laboratory at [facility]. It has not been cleared or approved [...] to perform high complexity clinical laboratory testing. ? Pathology Non-Remote Coders Cytology Final Report Clinical Information Specimen Source : Lymph node (CT-guided needle core biopsy and touch imprint cytology - assisted) Site: Lymph node . Clinical Information Clinical History/Impression: Smoker with periaortic and iliac lymph nodes. ? path Please send results/report to: Dr Je Durham [facility] Description: Received in 50 mL of formalin, labeled with the patient's name and medical record number, are multiple soft pink needle core biopsies ranging from 0.2 x 0.1 to 0.5 x 0.1 cm and fragments submitted in cassette A1.(T1) Total Preparation: Touch Imprint(s) 4; Needle Core Biopsy Block(s) 1. Intra-procedural Immediate Assessment: Immediate Assessment on: 2 Site 1 ??(3 slides): Inadequate for final diagnosis. Site 2 ??(1 slide): Adequate for final diagnosis. Atypical cells with scant cytoplasm. Material sent for flow. Immediate Assessment by: Cathi Rodriguez MD. She has personally examined the cytologic slides. Her interpretation is as stated. Note: Immediate Assessment results are preliminary assessments of adequacy and diagnosis. See final diagnosis and diagnostic comments for completed interpretation. Interpretation Specimen submitted is satisfactory. Diagnosis Positive for Malignancy 03/19/15 ?Screened by: ? SLA ?Rescreened by: ?? DLO,DLO 03/20/15 ?Verified by: ? BHASKAR ENNIS ? Hematopathologist ? (Electronic Signature) Comment Lymph node (CT-guided needle core biopsy and touch imprint cytology - assisted): - Follicular lymphoma (see NOTE). NOTE: Sections show lymphoid tissue containing scattered poorly-defined follicles in a background of small lymphocytes. Follicles have attenuated mantle zones and show loss of polarization and absence of tingible-body macrophages. ??The atypical follicles are composed of a mixture of large non-cleaved cells with moderate cytoplasm, open chromatin and multiple nucleoli (centroblasts) and small cleaved cells without nucleoli (centrocytes). Few follicles are available for review, but those present appear to contain <15 centroblasts per high power field. Immunohistochemical stains are performed to further characterize the cell populations. Cells within the follicles are CD20+ CD10+ BCL2+ BCL6+ CD10+ cyclin D1- B-cells. Occasional follicle center cells are MUM1+, while CD3+ T-cells are located in the interfollicular regions. The immunostain for CD21 highlights follicular dendritic networks and the Ki67 proliferation index is estimated at 10-20%. Flow cytometry immunophenotype analysis was performed concurrently (see separate report) and identified a monoclonal, ?lambda-restricted CD10+ B-cell population. . Comment In summary, these morphologic and immunophenotypic findings are consistent with involvement of this lymph node by a B-cell neoplasm of follicle center origin. There is a follicular pattern to the lymphoid population which, along with the flow cytometry results, is consistent with a follicular lymphoma. Though the lesion appears be a low grade one, definitive grading is not possible in this material due to the limited nature of the biopsy. Moreover, a higher grade or diffuse process is not excluded. Accordingly, an excisional biopsy of an accessible lymph node, if available, with material submitted for morphologic review is recommended for definitive diagnostic evaluation and classification. There is no morphologic evidence for involvement by a metastatic carcinoma or other non-hematopoietic neoplasm. This case has been reviewed by Dr. Rodriguez who concurs with the findings above. Immunohistochemistry Studies: Formalin-fixed, paraffin-embedded tissue sections are studied using the B-SA system technique with appropriate positive and negative controls. ? These IHC studies provide the pathologist with adjunctive diagnostic information. Antibody specificity has been verified by testing antibodies on a series of in-house tissues with known immunohistochemical performance characteristics. The clinical interpretation of any antibody positive staining or its absence is evaluated within the context of clinical presentation, morphology, histopathological criteria and other diagnostic tests. Block ? Antibody ? Result (Positive/Negative) A1 ? CD3 ?See above discussion ? CD10 ? CD20 ? BCL2 ? CD21 ? Cyclin D1 ? MUM1 ? BCL6 ? Ki67 03/20/2015 4:[address] [facility] Misc. FNA 03/18/2015 4:23 PM EDT 03/18/2015 4:23 PM EDT Alicia Dumont MD PATHOLOGY/CYTOLOGY O RDERABLES Performing Organization Address City/State/[facility] Co ks Phone Number [facility] [place] [address] * CT Biopsy-Lymph Node (03/18/2015 3:45 PM EDT) Anatomical Region Laterality Modality Computed Tomogra phy 03/18/2015 3:45 PM EDT Impressions 03/19/2015 8:44 AM EDT Impression: CT guided left iliac node biopsy Resident: Betzaida Kumar DO Attending: Alfredo Brand MD Attestation signed by Alfredo Brand MD at 03/18/2015 5:00 PM I, Dr. Brand, was present for the procedure. Film and interpretation reviewed by the attending Narrative 03/19/2015 8:44 AM EDT VIR PROCEDURE NOTE : Procedure: CT-guided left parailiac lymph node biopsy Indication: Periaortic and iliac lymphadenopathy Technique: After discussing risks (including infection, hemorrhage,bowel perforation,) and benefits, patient consented to the procedure. Due to the painful nature of the procedure, split doses of fentanyl and versed were administered by the IR nurse during continuous monitoring of pulse, blood pressure and oxygen saturation. Lesion was localized with CT. After sterile preparation of the overlying skin, 1% lidocaine SQ was administered for anesthesia, and a 19 coaxial needle system was advanced under CT guidance into the abdominal mass. 7 core samples were obtained. Patient tolerated the procedure well. There were no immediate complications. Post-procedure images were acquired. Findings: 1) 7 core samples were obtained under CT guidance. 2) Post-procedure images demonstrate no significant pelvic hematoma. Meds: Fentanyl 150 mcg IV, Versed 3 mg IV, 1% Lidocaine <10 cc Complications: none immediate Procedure Note Alfredo Brand MD - 03/19/2015 VIR PROCEDURE NOTE : Procedure: CT-guided left parailiac lymph node biopsy Indication: Periaortic and iliac lymphadenopathy Technique: After discussing risks (including infection, hemorrhage,bowel perforation,) and benefits, patient consented to the procedure. Due to the painful nature of the procedure, split doses of fentanyl andversed were administered by the IR nurse during continuous monitoring of pulse,blood pressure and oxygen saturation. Lesion was localized with CT. After sterile preparation of the overlyingskin, 1% lidocaine SQ was administered for anesthesia, and a 19 coaxial needlesystem was advanced under CT guidance into the abdominal mass. 7 core sampleswere obtained. Patient tolerated the procedure well. There were no immediate complications. Post-procedure images were acquired. Findings: 1) 7 core samples were obtained under CT guidance. 2) Post-procedure images demonstrate no significant pelvic hematoma. Meds: Fentanyl 150 mcg IV, Versed 3 mg IV, 1% Lidocaine <10 cc Complications: none immediate IMPRESSION Impression: CT guided left iliac node biopsy Resident: Betzaida Kumar DO Attending: Alfredo Brand MD Attestation signed by Alfredo Brand MD at 03/18/2015 5:00 PM I, Dr. Brand, was present for the procedure. Film and interpretation reviewed by the attending Alicia Dumont MD IMG CT ORDERABLES * Cytopathology Non-Gynecological (03/18/2015 2:18 PM EDT) AP Specimen 03/18/2015 2:18 PM EDT 03/18/2015 2:18 PM EDT Narrative [facility] - 03/18/2015 2:18 PM EDT Specimen requisition ordered. ??Separate Pathology report to follow Alicia Dumont MD PATHOLOGY/CYTOLOGY O RDERABLES Performing Organization Address [facility] Co de Phone Number [facility] * Immunophenotyping Flow Cytometry (03/18/2015 2:17 PM EDT) Immunophenotyping Flow See Comment [facility] Comment: When completed by the Pathologist, the Flow Cytometry Report ([id number]) will display under the Pathology Results section within eDH. Specimen of unknown material (specimen) Other / Unknown 03/18/2015 2:17 PM EDT 03/18/2015 5:29 PM EDT Narrative Resulting Agency Comment Spec In Lab Rosales Rodriguez MD HEMATOLOGY ORDERABLE S Performing Organization Address [facility] [facility] Co de Phone Number [facility] documented in this encounter Visit Diagnoses Not on filedocumented in this encounter Administered Medications Inactive Administered Medications - up to 3 most recent administrations Medication Order MAR Action Action Date Dose Rate Site fentaNYL 50mcg/mL injection 25-50 mcg, Intravenous, EVERY 5 MIN PRN, Starting on Wed03/18/15 at 1421, Until Wed02/09/20 at 1204, per protocol, Angio/IR (Day of Procedure), Routine Given 03/18/2015 3:25 PM EDT 50 mcg Given 03/18/2015 3:12 PM EDT 50 mcg Given 03/18/2015 3:00 PM EDT 50 mcg midazolam (PF) (VERSED) 1 mg/mL injection 1-2 mg 1-2 mg, Intravenous, EVERY 5 MIN PRN, Starting on Wed03/18/15 at 1421, Until Wed02/09/20 at 1204, per protocol, Angio/IR (Day of Procedure), Routine Given 03/18/2015 3:25 PM EDT 1 mg Given 03/18/2015 3:12 PM EDT 1 mg Given 03/18/2015 3:00 PM EDT 1 mg documented in this encounter Care Teams Slicing 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
--- OUTSIDE RECORDS SUMMARY | 2024-05-24 19:31 | XMS_ITS | Encounter Summary ---
Author Organization [facility] Address [facility] [place] [address] Care Team Providers Care Chairman President And Chief Executive Officer Name Role Phone Unknown Primary Care Provider Unavailabl e Encounter Details Date Type Department Care Team (Late st Contact Info) Description 03/06/2015 [place] [phone] Tavo Dumont MD [facility] [place] [address] Social History Tobacco Use Types Packs/Day Years [...] EDT Office Visit Radiation Oncology at [address] [phone] Taya De La Vega PA [facility] DR HEMATOLOGY [place] [address] 11/13/2024 2:00 PM EDT Office Visit Hematology/Oncology at [address] [phone] Kirt Kennedy MD [facility] DR HEMATOLOGY [place] [address] Alem Lazaro APRN [address] [place] [address] [place] [address] documented as of this encounter Procedures Procedure Name Priority Date/Time Associated Diagnosis Comments FILM LIBRARY STORAGE ONLY CT ABDOMEN AND PELVIS Routine 03/06/2015 9:12 AM EDT documented in this encounter Results * Film Library- Storage only CT abdomen & pelvis (03/06/2015 9:12 AM EDT) Anatomical Region Laterality Modality Abdomen, Pelvis Other 03/06/2015 9:12 AM EDT Narrative 03/07/2015 9:17 AM EDT This is a Non-reportable exam Procedure Note EDUAR, UNSIGNED REPORT - 03/07/2015 This is a Non-reportable exam Tavo Dumont MD [facility] FILM LIBRARY ORD ERABLES documented in this encounter Visit Diagnoses Not on filedocumented in this encounter Care Teams Chairman President And Chief Executive Officer Relationship Specialty Start Date End Date Unknown None PCP - General 07/15/10 03/17/15 documented as of this encounter
[2024-05-24 19:44] LABS: ALT 31 U/L (16-63); AST 20 U/L (15-37); Albumin 3.3 g/dL (3.4-5.0); Alkaline Phosphatase 139 U/L (46-116); Anion Gap 7.2 mmol/L (3-11); BUN 12 mg/dL (7-18); Bilirubin, Total 0.61 mg/dL (0.2-1.0); CO2 33.8 mmol/L (21.0-32.0); CREATININE 1.2 mg/dL (0.70-1.30); Calcium 10.1 mg/dL (8.5-10.1); Chloride 97 mmol/L (98-107); Glucose 120 mg/dL (74-106); Sodium 138 mmol/L (136-145); Total Protein 8.6 g/dL (6.4-8.2)
[2024-05-24] MEDS: Potassium Chloride 20 MEQ TABCR 40 MEQ PO (19:58)
--- NOTE | 2024-05-24 20:37 | DI.VRAD_ITS ---
PROCEDURE INFORMATION: Exam: XR Chest Exam date and time: 05/24/2024 19:57 Age: 78 years old Clinical indication: Shortness of breath TECHNIQUE: Imaging protocol: Radiologic exam of the chest. Views: 1 view. COMPARISON: CR XR PORTABLE CHEST AP POST LINE 02/26/2024 10:34 FINDINGS: Lungs: Mild hyperinflation without airspace consolidation. Pleural spaces: No pleural effusion. No pneumothorax. Heart/Mediastinum: No cardiomegaly. Bones/joints: No acute fracture. IMPRESSION: Mild hyperinflation without airspace consolidation. Dictated and Authenticated by: Marjorie Guidry MD. Ordering:CHRISTINA Castillo MD
--- NOTE | 2024-05-24 21:15 | DI.CT_ITS ---
Exam(s) CT ABDOMEN PELVIS WO EXAM: CT ABDOMEN PELVIS WO CLINICAL HISTORY: UTI, hx stones, eval obstructing stone. TECHNIQUE: Imaging Protocol: Axial computed tomography images with coronal and sagittal reformatted images were created and reviewed. Oral: no COMPARISON: CT CT RENAL COLIC WO from 12/26/2023 FINDINGS: Exam is limited by lack of IV an oral contrast and lack of intra-abdominal fat. Lung Bases: No acute findings. Liver: Normal density. No suspicious mass. Gallbladder and biliary tract: Single gallstone again noted in the gallbladder. No biliary dilatio n. Pancreas: Normal density. No abnormal calcifications or inflammatory process. Spleen: Normal. Kidneys: Normal size, contour and axis. Stable appearance of mild to moderate bilateral hydronephros is, right greater than left. Nonobstructing stones lower pole left kidney. Renal vascular calcifica tions. Stable cyst upper pole left kidney. No suspicious masses seen. Adrenal glands: No masses seen. Lymph nodes: Within normal limits. Vasculature: Abdominal aorta non-dilated. Stable bilobed infrarenal abdominal aortic aneurysm. Margoth re atherosclerotic changes. Soft tissues: Unremarkable. Bladder: Diffuse wall thickening. Bowel: Large quantity of stool noted throughout the colon consistent with constipation. No obstructi on or bowel wall thickening. Peritoneal cavity: No ascites. No focal collection. No mesenteric inflammatory response. Reproductive organs: Metallic seeds in the prostate Bones: Stable mild T12 compression fracture. Screws in left femoral neck. IMPRESSION: Stable [id number] bilateral hydronephrosis. Nonobstructing stones lower pole left kidney. Diffuse bladder wall thickening. Post treatment changes of the prostate. Large quantity of stool throughout the colon consistent with constipation. RADIATION DOSE DELIVERED: 263.92mGy.cm Total DLP DATA REPOSITORY: All CT scans at this facility are submitted to the National Radiology Data Registry (NRDR) Dose Index Registry (DIR) with the [employer] (ACR). RADIATION OPTIMIZATION: All CT scans at this facility use at least one of these dose optimization te chniques: automated exposure control; mA and/or kV adjustment per patient size (includes targeted exa ms where dose is matched to clinical indication); or iterative reconstruction.
--- NOTE | 2024-05-24 21:16 | ED.GENADUL_ITS ---
Discharge Plan Disposition Patient Disposition: Home Condition: Stable Discharge Details Clinical Impression: Acute UTI, Acute urinary retention Primary Care Provider: Elyse Gutierrez ED Provider: Leigh Avila Home Meds and New Rx's Prescriptions: New ciprofloxacin HCl [Cipro] 500 mg tablet 500 mg PO BID 10 Days Qty: 20 0RF No Action melatonin 3 mg Tablet 3 mg PO HS lactobacillus combo #5 150 mg (2 billion cell) Tablet,Delayed Release (Dr/Ec) 1 mg PO DAILY Patient Comments: not taking acetaminophen 500 mg Tablet 1,000 mg PO Q8H PRN PRNQty: 0 0RF docusate sodium [Colace] 100 mg Capsule 100 mg PO BID Qty: 0 0RF sennosides [Senokot] 8.6 mg Tablet 8.6 mg PO BID Qty: 60 0RF tramadol 50 mg Tablet 50 mg PO Q4H PRN PRNQty: 30 0RF polyethylene glycol 3350 17 gram Powder In Packet 17 g PO BID Qty: 0 0RF potassium chloride 10 mEq Tablet,Er Particles/Crystals 10 meq PO DAILY Qty: 0 0RF Metamucil Sugar-Free (aspart) 3.4 gram/5.8 gram Powder 1 pwd PO BID Qty: 0 0RF magnesium gluconate 27 mg magnesium (500 mg) Tablet 500 mg PO DAILY Qty: 0 0RF bisacodyl 10 mg Suppository 10 mg VA DAILY PRN PRNQty: 0 0RF ferrous sulfate [Feosol] 325 mg (65 mg iron) tablet 325 mg PO DAILY Qty: 30 0RF atorvastatin 80 mg Tablet 80 mg PO QPM tamsulosin 0.4 mg Capsule 0.4 mg PO BID Patient Comments: usually takes after meal cholecalciferol (vitamin D3) [Vitamin D3] 25 mcg (1,000 unit) Tablet 25 mcg PO .qod lacosamide 100 mg Tablet 200 mg PO BID Discharge Instructions Instructions: Urinary Retention (DC), Urinary Tract Infection, Adult ED Additional Instructions: You were seen in the emergency department today for evaluation of blood in your urine and urinary frequency with incomplete emptying. You are found to have both a urinary tract infection as well as urinary retention. You had a Mckeon catheter placed and need to follow-up with our urology clinic in the next few days have this reevaluated and determine if it is safe to come out. You need to take antibiotics, a medication called ciprofloxacin, twice a day for the next 10 days. Please take all this medication until it is gone, even if you start to feel better. If you develop a fever, change in mental status, or other concerning symptoms you need to return to the emergency department for reevaluation. Thank you for allowing us to be part of your care. HPI General Mode of arrival: EMS . Date/Time Provider Initiated Documentation: 05/24/24 19:18 . Limitations to Documentation: no limitations . Information obtained by: patient, family and old records reviewed . HPI Narrative: HPI: This is a 78-year-old male patient with a past medical history significant for AAA, hip fracture complicated by anaphylactic reaction to rocuronium or cefazolin, as well as a history of frequent urinary tract infections, renal stones, and BPH on tamsulosin. He is presenting with his family member with a concern for urinary tract infection. They noted new hematuria this afternoon, patient states that he is having frequent urination and feels like he is having incomplete emptying. In the past he has required catheter placement for urinary retention. The patient reports that he has not had fevers or chills, has been eating and drinking normally and has otherwise been in his normal state of health. He was noted to have a mildly low oxygen saturation on arrival to 90%, with no reported shortness of breath or cough. Exam: Gen: Awake and alert, in no apparent distress HEENT: Non-icteric sclera Neck: Supple Lungs: No apparent respiratory distress, normal respiratory effort. Lung sounds without wheezing, rhonchi, rales CV: Appears well perfused, heart with regular rate and rhythm, strong distal pulses Abdomen: Non-distended, soft, nontender to palpation without rigidity, rebound, or guarding. The patient does have palpable suprapubic fullness, no CVA tenderness MSK: Moves 4 extremities without apparent limitation in ROM Skin: Visualized skin without rashes, cyanosis. Neuro: Normal Gait, no obvious focal deficits or facial asymmetry. Speaks in full, clear sentences. Psych: Appropriate for situation. MDM: This is a 78-year-old male patient presenting for evaluation of urinary tract changes. Differential includes but is not limited to UTI/pyelonephritis, certainly considered renal stone, infected stone, perinephric abscess. I considered urinary retention, kidney injury, metabolic and electrolyte derangement. I am reassured by the patient's lack of fever, tachycardia, and hemodynamically instability against sepsis, bacteremia. The patient has an otherwise very reassuring examination. We will obtain laboratory studies to include CBC, CMP, and UA. I will obtain a CT abdomen pelvis without contrast given a history of skin rash to iodine contrast in the past, to evaluate for obstructing stone. Finally, I will obtain a chest x-ray to evaluate for causes of the patient's mild hypoxia, such as pneumonia, pleural effusion, pulmonary edema, pneumothorax. ED Course: I reviewed the patient's laboratory studies, which show a leukocytosis to 16 without anemia or thrombocytopenia. Chemistry panel without significant electrolyte derangements other than mild hypokalemia, which was repleted orally. No evidence of kidney dysfunction, the patient has a very mild elevation in alkaline phosphatase but no other evidence of liver disease. The patient's urine was obtained, and was frankly turbid/purulent, with large blood, positive nitrites, and large leukocyte esterase. Greater than 50 WBCs and RBCs appreciated. The patient's postvoid residual was measured and was greater than 200, concerning for urinary retention given that he tried to void completely. I reviewed the patient's CT imaging, which shows a moderately dilated bladder with thickened davis concerning for cystitis. The patient has no obstructing renal stones that would require emergent operative intervention, but does have bilateral kidney stones as well as hydro which was demonstrated on prior imaging studies. Given the patient's recent anaphylactic reaction to cephalosporins, I provided him with a dose of intravenous ciprofloxacin. The patient's numerous prior urine cultures demonstrated mixed gram-positive and gram-negative rods in stefania, with no sensitivities or speciation available. The patient also had a Mckeon catheter placed given his urinary retention with a plan for him to follow-up with urology to discuss next steps in management. I provided the patient with a prescription for ciprofloxacin to be taken in the home environment for the next 10 days. At this time, the patient has had a full medical evaluation and is safe for discharge to home. They are hemodynamically stable, ambulatory, and tolerating PO. They are understanding of the follow-up plan and return precautions. They left our facility without incident. Leigh Avila MD Related Data Home Medications ?Medication ?Instructions ?Recorded ?Confirmed atorvastatin 80 mg tablet 80 mg PO QPM 01/05/21 05/24/24 cholecalciferol (vitamin D3) 25 25 mcg PO .qod 01/05/21 05/24/24 mcg (1,000 unit) tablet (Vitamin D3) lacosamide 100 mg tablet 200 mg PO BID 01/05/21 05/24/24 tamsulosin 0.4 mg capsule 0.4 mg PO BID 01/05/21 05/24/24 lactobacillus combo #5 150 mg (2 1 mg PO DAILY 12/12/21 04/21/24 billion cell) tablet,delayed release melatonin 3 mg tablet 3 mg PO HS 12/12/21 05/24/24 acetaminophen 500 mg tablet 1,000 mg (2 x 500 mg) PO Q8H PRN 03/03/24 05/24/24 PRN #0 tabs bisacodyl 10 mg rectal suppository 10 mg VA DAILY PRN PRN #0 ea 03/03/24 05/24/24 docusate sodium 100 mg capsule 100 mg PO BID #0 caps 03/03/24 05/24/24 (Colace) ferrous sulfate 325 mg (65 mg 325 mg PO DAILY #30 tabs 03/03/24 05/24/24 iron) tablet (Feosol) magnesium gluconate 27 mg 500 mg (18.5185 x 27 mg magnesium 03/03/24 05/24/24 magnesium (500 mg) tablet (500 mg)) PO DAILY #0 tabs polyethylene glycol 3350 17 gram 17 g PO BID #0 ea 03/03/24 05/24/24 oral powder packet potassium chloride 10 mEq 10 meq PO DAILY #0 tabs 03/03/24 05/24/24 tablet,extended release(part/cryst) psyllium husk (aspartame) 3.4 1 pwd PO BID #0 grams 03/03/24 05/24/24 gram/5.8 gram oral powder (Metamucil Sugar-Free (aspartame)) sennosides 8.6 mg tablet (Senokot) 8.6 mg PO BID #60 tabs 03/03/24 05/24/24 tramadol 50 mg tablet 50 mg PO Q4H PRN PRN #30 tabs 03/03/24 05/24/24 ciprofloxacin HCl 500 mg tablet 500 mg PO BID 10 days #20 tabs 05/24/24 (Cipro) Previous Rx's ?Medication ?Instructions ?Recorded acetaminophen 500 mg tablet 1,000 mg (2 x 500 mg) PO Q8H PRN 03/03/24 PRN #0 tabs bisacodyl 10 mg rectal suppository 10 mg VA DAILY PRN PRN #0 ea 03/03/24 docusate sodium 100 mg capsule 100 mg PO BID #0 caps 03/03/24 (Colace) ferrous sulfate 325 mg (65 mg 325 mg PO DAILY #30 tabs 03/03/24 iron) tablet (Feosol) magnesium gluconate 27 mg 500 mg (18.5185 x 27 mg magnesium 03/03/24 magnesium (500 mg) tablet (500 mg)) PO DAILY #0 tabs polyethylene glycol 3350 17 gram 17 g PO BID #0 ea 03/03/24 oral powder packet potassium chloride 10 mEq 10 meq PO DAILY #0 tabs 03/03/24 tablet,extended release(part/cryst) psyllium husk (aspartame) 3.4 1 pwd PO BID #0 grams 03/03/24 gram/5.8 gram oral powder (Metamucil Sugar-Free (aspartame)) sennosides 8.6 mg tablet (Senokot) 8.6 mg PO BID #60 tabs 03/03/24 tramadol 50 mg tablet 50 mg PO Q4H PRN PRN #30 tabs 03/03/24 ciprofloxacin HCl 500 mg tablet 500 mg PO BID 10 days #20 tabs 05/24/24 (Cipro) Allergies Allergy/AdvReac Type Severity Reaction Status Date / Time cefazolin Allergy Severe Anaphylaxis Verified 05/24/24 19:11 Iodinated Contrast Media Allergy Skin Rash Verified 05/24/24 19:11 Rocuronium Allergy Severe Anaphylaxis Uncoded 05/24/24 19:11 General Stated Complaint: Urinary ALONZO: 3 Course Vital Signs Vital signs: Vital Signs Temperature 36.1 C L 05/24/24 19:08 Pulse 75 05/24/24 19:08 Respiratory Rate 18 05/24/24 19:08 Blood Pressure 135/67 05/24/24 19:08 Pulse Oximetry 90 L 05/24/24 19:08 Temperature 36.1 C L 05/24/24 19:08 Temperature Source Skin 05/24/24 19:08 Pulse 75 05/24/24 19:08 Respiratory Rate 18 05/24/24 19:08 Respiratory Effort Normal 05/24/24 19:11 Blood Pressure 135/67 05/24/24 19:08 Blood Pressure Position Sitting 05/24/24 19:08 Pulse Oximetry 90 L 05/24/24 19:08 Oxygen Delivery Method Room Air 05/24/24 19:08 Oxygen Flow Rate 0 05/24/24 19:08 Lab/Test Results Lab/Test Results: Laboratory Tests Range/Units 05/24/24 19:00 WBC (4.4-10.8) 10^3/uL 16.61 H RBC (4.36-5.78) 10^6/uL 5.04 Hgb (13.5-17.5) g/dL 15.3 Hct (40.0-50.0) % 47.2 MCV (80-95) fL 94 MCH (27.0-33.0) pg 30.4 MCHC (32.0-36.0) % 32.4 RDW (11.8-14.1) % 14.6 H Plt Count (130-400) 10^3/uL 332 MPV (8.0-11.0) fL 8.4 Immature Gran % % 0.9 Neutrophils % % 87.0 Lymphocytes % % 5.7 Monocytes % % 5.4 Eosinophils % % 0.7 Basophils % % 0.3 Nucleated RBC % (0.0-0.3) % 0.0 Absolute Neutrophils (1.2-6.7) 10^3/uL 14.45 H Absolute Lymphocytes (1.2-3.4) 10^3/uL 0.95 L Absolute Monocytes (0.1-0.8) 10^3/uL 0.90 H Absolute Eosinophils (0.0-0.7) 10^3/uL 0.12 Absolute Basophils (0.0-0.2) 10^3/uL 0.05 Sodium (136-145) mmol/L 138 Potassium (3.5-5.1) mmol/L 3.0 L Chloride (98-107) mmol/L 97 L Carbon Dioxide (21.0-32.0) mmol/L 33.8 H Anion Gap (3-11) mmol/L 7.2 BUN (7-18) mg/dL 12 Creatinine (0.70-1.30) mg/dL 1.2 Est GFR (CKD-EPI 2020) (mL/min/1.73m2) 61.90 Glucose (74-106) mg/dL 120 H Calcium (8.5-10.1) mg/dL 10.1 Magnesium (1.8-2.4) mg/dL 2.0 Total Bilirubin (0.2-1.0) mg/dL 0.61 AST (15-37) U/L 20 ALT (16-63) U/L 31 Alkaline Phosphatase (46-116) U/L 139 H Total Protein (6.4-8.2) g/dL 8.6 H Albumin (3.4-5.0) g/dL 3.3 L Medical Decision Making Quality:SDOH Health Related Social Needs: No Data to Display PFSH All Active Problems (Updated 05/24/24 @ 23:12 by Leigh Avila MD) Acute urinary retention (Acute) Acute UTI (Acute) History of posttraumatic stress disorder (PTSD) (Chronic) Tooth avulsion (Acute) DVT prophylaxis (Acute) Smoker (Chronic) Atherosclerosis of artery (Acute) Abdominal aortic aneurysm (AAA) (Chronic) Thoracic aortic aneurysm (Acute) Thoracic aorta atherosclerosis (Acute) Closed left hip fracture (Acute) s/p percutaneous screw fixation (02/28/24) Medical History (Updated 05/24/24 @ 23:12 by Leigh Avila MD) Other types of follicular lymphoma, 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 Major depressive disorder, single episode Leakage of other urinary catheter, initial encounter Family history of breast cancer Essential (primary) hypertension Delirium due to known physiological condition Contact with and (suspected) exposure to other hazardous substances Bradycardia, unspecified Seizure disorder as sequela of cerebrovascular accident s/p CVA/hemorrhage, h/o breakthrough in setting of UTI/fever Closed fracture of left proximal humerus (01/10/23) CVA (cerebral vascular accident) Lymphoma Prostate cancer Hypertension Surgical History History of craniotomy for brain bleed Family History Father Personal history of malignant neoplasm prostate cancer Social History Smoking/Tobacco Use Status: Current every day Tobacco Type: cigarettes Smoking packs per day: 1 Smoking cigarettes per day: 20.0 Smoking risk assessment performed?: Yes Alcohol Intake: former Drug use: Never Substance use type: does not use Housing: house Current gender identity: male Do you feel safe at home: Yes Do you feel safe in your relationship?: Yes
[2024-05-24 21:28] LABS: Bilirubin Negative (Negative); Blood Large (Negative); Clarity Turbid (Clear); Glucose Negative (Negative); Ketones 15 mg/dL (Negative); Leukocyte Esterase Large (Negative); Nitrite Positive (Negative); Urobilinogen 0.2 mg/dL (Up to 0.2); pH 6.5 (5-8)
[2024-05-24 21:37] LABS: Specific Gravity 1.015 (1.005-1.025)
[2024-05-24 21:39] LABS: C & S Indicated? Yes; RBC >50 HPF (0-2); WBC >50 HPF (0-5)
--- NOTE | 2024-05-24 21:58 | DI.VRAD_ITS ---
PROCEDURE INFORMATION: Exam: CT Abdomen And Pelvis Without Contrast Exam date and time: 05/24/2024 21:31 Age: 78 years old Clinical indication: Other: UTI, HX stones, eval obstructing stone TECHNIQUE: Imaging protocol: Computed tomography of the abdomen and pelvis without contrast. COMPARISON: CT RENAL COLIC WO 12/26/2023 22:50 FINDINGS: Lungs: The lungs appear hyperinflated. Liver: Probable small benign hepatic cyst. No hepatic masses on noncontrast imaging. Gallbladder and biliary ducts: Cholelithiasis. Pancreas: No ductal dilation. No mass on noncontrast imaging. Spleen: No splenomegaly or suspicious lesions. Adrenal glands: No suspicious mass on noncontrast imaging. Kidneys and ureters: Moderate right greater than left hydronephrosis, similar to prior. A complex mostly cystic 3 cm left renal cortical lesion is similar to prior. Follow-up as per institutional protocol. Subcentimeter bilateral nephrolithiasis again seen. No obstructing stones are identified. Mild right renal cortical atrophy. Stomach and bowel: Moderate wall thickening of the rectum, similar to prior. Large colonic stool burden. No small bowel inflammation on noncontrast imaging. No obstruction. Appendix: No evidence of appendicitis. Intraperitoneal space: No free air. No significant fluid collection. Vasculature: No abdominal aortic aneurysm. Lymph nodes: No significantly enlarged lymph nodes on noncontrast imaging. Urinary bladder: Moderately distended thick-walled urinary bladder. Reproductive: Post treatment changes in the prostate gland, similar to prior. Bones/joints: Chronic bony changes with no acute fracture. Soft tissues: No suspicious lesions. IMPRESSION: 1. Moderately distended thick-walled urinary bladder could reflect cystitis and or chronic outlet obstructive changes. 2. Moderate right greater than left hydronephrosis, similar to prior. 3. Moderate proctitis, similar to prior. 4. Incidental findings as described. Dictated and Authenticated by: Marjorie Guidry MD. Ordering:CHRISTINA Castillo MD
[2024-05-24] MEDS: CIPROFLOXACIN 400 MG/200 ML BAG 200 MG IVPB (22:00)
[2024-05-24] MEDS: fentaNYL 100 MCG/2 ML VIAL 50 MCG IVP (23:00)
[2024-05-24 23:42] LABS: Bilirubin Negative (Negative); Blood Large (Negative); Clarity Sl Cloudy (Clear); Glucose Negative (Negative); Ketones Negative (Negative); Leukocyte Esterase Large (Negative); Nitrite Positive (Negative); Specific Gravity 1.015 (1.005-1.025); Urobilinogen 0.2 mg/dL (Up to 0.2)
[2024-05-24] MEDS: Lidocaine 2% Jelly 11 ML SYR UR (23:45)
[2024-05-24 23:54] LABS: RBC >50 HPF (0-2); WBC >50 HPF (0-5)
[2024-05-24 23:55] LABS: C & S Indicated? Yes
== END 2024-05-24 23:46 | disposition home or self-care (01) ==
PROVIDERS: Emergency Provider Emergency Medicine; PCP Internal Medicine
DX: R33.8 Other retention of urine (principal); R31.0 Gross hematuria; N39.0 Urinary tract infection, site not specified; Z87.440 Personal history of urinary (tract) infections; Z87.442 Personal history of urinary calculi
CPT/HCPCS: 36415; 51798; 80053; 87077; 96365; 96375; 99284; 71045; 74176; 81003; 81015; 83735; 85025; 87086; 87186; J0744; J3010

== ENCOUNTER 2024-05-26 11:52 | Emergency (ER) | payer OTHER, SELFPAY ==
[2024-05-26 12:00] VITALS: BP 112/73; PULSE 68; RESP 18; TEMP 36.6; O2SAT 98
--- NOTE | 2024-05-26 13:06 | ED.GENADUL_ITS ---
Discharge Plan Disposition Patient Disposition: Home Condition: Stable Discharge Details Clinical Impression: Urinary tract infection, Urinary retention Primary Care Provider: Elyse Gutierrez ED Provider: Tariq Herzog Home Meds and New Rx's Prescriptions: New sulfamethoxazole-trimethoprim 800-160 mg tablet 1 tab PO BID 10 Days Qty: 20 0RF Continued melatonin 3 mg Tablet 3 mg PO HS lactobacillus combo #5 150 mg (2 billion cell) Tablet,Delayed Release (Dr/Ec) 1 mg PO DAILY Patient Comments: not taking acetaminophen 500 mg Tablet 1,000 mg PO Q8H PRN PRNQty: 0 0RF docusate sodium [Colace] 100 mg Capsule 100 mg PO BID Qty: 0 0RF sennosides [Senokot] 8.6 mg Tablet 8.6 mg PO BID Qty: 60 0RF tramadol 50 mg Tablet 50 mg PO Q4H PRN PRNQty: 30 0RF polyethylene glycol 3350 17 gram Powder In Packet 17 g PO BID Qty: 0 0RF potassium chloride 10 mEq Tablet,Er Particles/Crystals 10 meq PO DAILY Qty: 0 0RF Metamucil Sugar-Free (aspart) 3.4 gram/5.8 gram Powder 1 pwd PO BID Qty: 0 0RF magnesium gluconate 27 mg magnesium (500 mg) Tablet 500 mg PO DAILY Qty: 0 0RF ferrous sulfate [Feosol] 325 mg (65 mg iron) tablet 325 mg PO DAILY Qty: 30 0RF atorvastatin 80 mg Tablet 80 mg PO QPM tamsulosin 0.4 mg Capsule 0.4 mg PO BID Patient Comments: usually takes after meal cholecalciferol (vitamin D3) [Vitamin D3] 25 mcg (1,000 unit) Tablet 25 mcg PO .qod lacosamide 100 mg Tablet 200 mg PO BID Discontinued ciprofloxacin HCl [Cipro] 500 mg tablet 500 mg PO BID 10 Days Qty: 20 0RF Discharge Instructions Instructions: Sulfamethoxazole and Trimethoprim, Urinary Retention, Urinary Tract Infection, Adult ED Additional Instructions: You were seen in the emergency department for your Giraldo catheter problem, your original Giraldo placed couple days ago fell out and we replaced a new 1 by urology services here in the ED today. You have MRSA UTI, we are starting on antibiotic called Bactrim and urology will follow-up with you by early next week to likely trial removing the Giraldo catheter. Please return to the emergency department for worsening nausea, weakness, fevers, further Giraldo catheter problems or other emergent concerns. Referrals: [facility] [Provider Group] Elyse Gutierrez [Primary Care Provider] - Discharge Data Discharge Date/Time-TO BE ENTERED AT DEPARTURE: 05/26/24 16:31 HPI General Date/Time Provider Initiated Documentation: 05/26/24 12:19 . HPI Narrative: 78 year-old male presents to ED today by POV/ambulating with his daughter with a chief complaint of giraldo catheter came out sometime during the night, urinary retention ongoing, with MRSA (+) urine culture prelim resulted today with onset last night. Quality described as mild suprapubic discomfort, feels like he has to pee, no radiation to fever, severe flank pain, nausea, weakness. Severity is described as moderate. Palliating factors include nothing specific. Provoking factors include nothing specific. Events leading up to the incident/Associated Symptoms: [facility], has not had follow-up with [facility] urology yet. Giraldo was placed 2 days prior here in ED. Patient not anticoagulated. Related Data Home Medications ?Medication ?Instructions ?Recorded ?Confirmed atorvastatin 80 mg tablet 80 mg PO QPM 01/05/21 05/29/24 cholecalciferol (vitamin D3) 25 25 mcg PO .qod 01/05/21 05/29/24 mcg (1,000 unit) tablet (Vitamin D3) lacosamide 100 mg tablet 200 mg PO BID 01/05/21 05/29/24 tamsulosin 0.4 mg capsule 0.4 mg PO BID 01/05/21 05/29/24 lactobacillus combo #5 150 mg (2 1 mg PO DAILY 12/12/21 05/29/24 billion cell) tablet,delayed release melatonin 3 mg tablet 3 mg PO HS 12/12/21 05/29/24 acetaminophen 500 mg tablet 1,000 mg (2 x 500 mg) PO Q8H PRN 03/03/24 05/29/24 PRN #0 tabs docusate sodium 100 mg capsule 100 mg PO BID #0 caps 03/03/24 05/29/24 (Colace) ferrous sulfate 325 mg (65 mg 325 mg PO DAILY #30 tabs 03/03/24 05/29/24 iron) tablet (Feosol) magnesium gluconate 27 mg 500 mg (18.5185 x 27 mg magnesium 03/03/24 05/29/24 magnesium (500 mg) tablet (500 mg)) PO DAILY #0 tabs polyethylene glycol 3350 17 gram 17 g PO BID #0 ea 03/03/24 05/29/24 oral powder packet potassium chloride 10 mEq 10 meq PO DAILY #0 tabs 03/03/24 05/29/24 tablet,extended release(part/cryst) psyllium husk (aspartame) 3.4 1 pwd PO BID #0 grams 03/03/24 05/29/24 gram/5.8 gram oral powder (Metamucil Sugar-Free (aspartame)) sennosides 8.6 mg tablet (Senokot) 8.6 mg PO BID #60 tabs 03/03/24 05/29/24 tramadol 50 mg tablet 50 mg PO Q4H PRN PRN #30 tabs 03/03/24 05/29/24 sulfamethoxazole 800 1 tab PO BID 10 days #20 tabs 05/26/24 05/29/24 mg-trimethoprim 160 mg tablet Previous Rx's ?Medication ?Instructions ?Recorded acetaminophen 500 mg tablet 1,000 mg (2 x 500 mg) PO Q8H PRN 03/03/24 PRN #0 tabs docusate sodium 100 mg capsule 100 mg PO BID #0 caps 03/03/24 (Colace) ferrous sulfate 325 mg (65 mg 325 mg PO DAILY #30 tabs 03/03/24 iron) tablet (Feosol) magnesium gluconate 27 mg 500 mg (18.5185 x 27 mg magnesium 03/03/24 magnesium (500 mg) tablet (500 mg)) PO DAILY #0 tabs polyethylene glycol 3350 17 gram 17 g PO BID #0 ea 03/03/24 oral powder packet potassium chloride 10 mEq 10 meq PO DAILY #0 tabs 03/03/24 tablet,extended release(part/cryst) psyllium husk (aspartame) 3.4 1 pwd PO BID #0 grams 03/03/24 gram/5.8 gram oral powder (Metamucil Sugar-Free (aspartame)) sennosides 8.6 mg tablet (Senokot) 8.6 mg PO BID #60 tabs 03/03/24 tramadol 50 mg tablet 50 mg PO Q4H PRN PRN #30 tabs 03/03/24 sulfamethoxazole 800 1 tab PO BID 10 days #20 tabs 05/26/24 mg-trimethoprim 160 mg tablet Allergies Allergy/AdvReac Type Severity Reaction Status Date / Time cefazolin Allergy Severe Anaphylaxis Verified 05/29/24 11:07 Iodinated Contrast Media Allergy Skin Rash Verified 05/29/24 11:07 Rocuronium Allergy Severe Anaphylaxis Uncoded 05/29/24 11:07 General Stated Complaint: Urinary ALONZO: 3 Review of Systems All systems reviewed & are unremarkable except as noted in HPI and below Exam Narrative Exam Narrative: GENERAL APPEARANCE: Well-nourished, non-toxic, awake and alert, atraumatic, no acute distress. SKIN: Warm, pink, dry, intact, without rashes/lesions/ulcerations. HEAD: Normocephalic, atraumatic, normal hair distribution for gender/age. EYES: Normal conjunctiva, no exudates on lids/lashes. ENT: Nares patent, no circumoral cyanosis, no facial swelling NECK: Supple, trachea midline, painless cervical ROM. LUNGS/CHEST: Lungs CTA bilaterally, non-labored respirations, normal A/P diameter, symmetrical expansion, no chest wall deformity HEART (CV/PV): Regular rate and rhythm without murmur, no peripheral edema, no JVD. ABDOMEN: Soft, non-distended, no guarding, mild suprapubic discomfort, normal external genitalia. no CVA tenderness to percussion bilaterally MSK: Normal ROM, no swelling/deformity to bilateral UEs or LEs, moving all extremities without weakness, no cyanosis, spine midline without tenderness, normal curvature. NEURO: Mental Status AAOx4 - alert to person, place, time, events No facial droop, no forehead involvement. Motor: No focal weakness - strength 5/5 in bilateral UEs and LEs, proximal and distal, symmetric. Sensory: sensation intact to light touch globally. Gait normal: patient ambulated without ataxia into ED room. PSYCH: euthymic, cooperative, pleasant, appropriate speech Course Vital Signs Vital signs: Vital Signs Temperature 36.6 C 05/26/24 12:00 Pulse 68 05/26/24 12:00 Respiratory Rate 18 05/26/24 12:00 Blood Pressure 112/73 05/26/24 12:00 Pulse Oximetry 98 05/26/24 12:00 Temperature 36.6 C 05/26/24 12:00 Temperature Source Oral 05/26/24 12:00 Pulse 68 05/26/24 12:00 Respiratory Rate 18 05/26/24 12:00 Blood Pressure 112/73 05/26/24 12:00 Blood Pressure Position Sitting 05/26/24 12:00 Pulse Oximetry 98 05/26/24 12:00 Oxygen Delivery Method Room Air 05/26/24 12:00 Oxygen Flow Rate 0 05/26/24 12:00 Pain Level 0 05/26/24 12:00 Medical Decision Making This dictation utilizes [id number] dictation software and may contain unedited grammatical errors. 78 year-old male presents to ED today by POV/ambulating with his daughter with a chief complaint of igraldo catheter came out sometime during the night, urinary retention ongoing, with MRSA (+) urine culture prelim resulted today with onset last night. Quality described as mild suprapubic discomfort, feels like he has to pee, no radiation to fever, severe flank pain, nausea, weakness. Severity is described as moderate. Palliating factors include nothing specific. Provoking factors include nothing specific. Events leading up to the incident/Associated Symptoms: Patient is [facility], has not had follow-up with [facility] urology yet. Giraldo was placed 2 days prior here in ED. Patients' medical history: Hypertension, history of CVA seizure disorder, prostate cancer, lymphoma, acute urinary retention and UTI, thoracic aortic aneurysm. Family and social history: lives with daughter. Pertinent exam findings / vital signs include some mild suprapubic discomfort, normal external genitalia, no anterior abdominal tenderness, no CVA tenderness to percussion bilaterally. Differential / pathologies of concern include acute urinary retention due to UTI versus prostate cancer with outflow obstruction. Diagnostic studies of: -None. Interventions of: -Attempted Giraldo insertion by RN X2, difficult insertion, Dr. Bob of urology did present to the emergency department and we discussed plan of action, sent the patient home on antibiotics and he will see the patient in a few days. ED Course/Assessment/Plan: 78-year-old male presents with acute urinary retention, is a preliminary urine culture showing MRSA and recent acute urinary retention, he ripped his Giraldo catheter out sometime during the night last night, was a difficult insertion 2 days ago here in the ED, Dr. Bob did insert a new Giraldo here today and we discussed sending him home on Bactrim for possible MRSA UTI. The patient's daughter verbalized understanding, she will bring him back for any acute worsening despite treatment or any other difficulty with the Giraldo catheter. DC'd cipro and started Bactrim. Findings not consistent with sepsis, renal stones, complete obstruction of outflow. Disposition of Urinary Tract Infection, Urinary Retention. Patient verbalized understanding of the plan and return to ED criteria and engaged in shared decision making. Medical Records Medical records reviewed: Yes I reviewed the patient's medical records. Quality:[facility] Health Related Social Needs: No Data to Display PFSH All Active Problems (Updated 05/26/24 @ 14:59 by MARISOL Medrano) Urinary retention (Acute) Urinary tract infection (Acute) Acute urinary retention (Acute) Acute UTI (Acute) History of posttraumatic stress disorder (PTSD) (Chronic) Tooth avulsion (Acute) DVT prophylaxis (Acute) Smoker (Chronic) Atherosclerosis of artery (Acute) Abdominal aortic aneurysm (AAA) (Chronic) Thoracic aortic aneurysm (Acute) Thoracic aorta atherosclerosis (Acute) Closed left hip fracture (Acute) s/p percutaneous screw fixation (02/28/24) Medical History (Updated 05/26/24 @ 14:59 by MARISOL Medrano) Other types of follicular lymphoma, 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 Major depressive disorder, single episode Leakage of other urinary catheter, initial encounter Family history of breast cancer Essential (primary) hypertension Delirium due to known physiological condition Contact with and (suspected) exposure to other hazardous substances Bradycardia, unspecified Seizure disorder as sequela of cerebrovascular accident s/p CVA/hemorrhage, h/o breakthrough in setting of UTI/fever Closed fracture of left proximal humerus (01/10/23) CVA (cerebral vascular accident) Lymphoma Prostate cancer Hypertension Surgical History History of craniotomy for brain bleed Family History Father Personal history of malignant neoplasm prostate cancer Social History Smoking/Tobacco Use Status: Current every day Tobacco Type: cigarettes Smoking packs per day: 1 Smoking cigarettes per day: 20.0 Smoking risk assessment performed?: Yes Alcohol Intake: former Drug use: Never Substance use type: does not use Housing: house Current gender identity: male Do you feel safe at home: Yes Do you feel safe in your relationship?: Yes
[2024-05-26] MEDS: ACETAMINOPHEN 1,000 MG/100 ML BTL 400 MG IVPB (14:22)
[2024-05-26] MEDS: Lidocaine 2% Jelly 11 ML SYR UR (14:22)
[2024-05-26] MEDS: VANCOMYCIN/WATER (PEG) 1 GM/200 ML BAG IVPB (14:22)
[2024-05-26] MEDS: Ketorolac 15 MG/ML VIAL IVP (14:22)
[2024-05-26] MEDS: VANCOMYCIN 1,100 MG in Normal Saline 500 ML 333.3333 MG IVPB (15:15)
[2024-05-26] MEDS: fentaNYL 100 MCG/2 ML VIAL 50 MCG IVP (15:15)
--- NOTE | 2024-05-26 16:02 | UCONE_ITS ---
Date of service: 05/26/24 Time of Service: 16:02 Assessment and Plan Assessment and plan (1) Urinary retention: Status: Acute Assessment and plan: We generally recommend leaving the catheter for at least 3 to 5 days before a voiding trial. He will need to coordinate the voiding trial with his providers at the [place]. History of Present Illness History of Present Illness Chief Complaint: Catheter placement Narrative: This is a 78-year-old gentleman who was in our emergency department 2 days ago. He had a Mckeon catheter placed. It sounds as if the catheter was removed forcefully with the balloon intact and he was brought back to the emergency department. The emergency department staff was unable to replace his catheter and I was asked to come down to insert a Mckeon catheter. He does have a history of kidney stones and prostate cancer. He is under the care of of the urology department at the [place]. PFSH All Active Problems (Updated 05/26/24 @ 14:59 by MARISOL Medrano) Urinary retention (Acute) Urinary tract infection (Acute) Acute urinary retention (Acute) Acute UTI (Acute) History of posttraumatic stress disorder (PTSD) (Chronic) Tooth avulsion (Acute) DVT prophylaxis (Acute) Smoker (Chronic) Atherosclerosis of artery (Acute) Abdominal aortic aneurysm (AAA) (Chronic) Thoracic aortic aneurysm (Acute) Thoracic aorta atherosclerosis (Acute) Closed left hip fracture (Acute) s/p percutaneous screw fixation (02/28/24) Medical History (Updated 05/26/24 @ 14:59 by MARISOL Medrano) Other types of follicular lymphoma, 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 Major depressive disorder, single episode Leakage of other urinary catheter, initial encounter Family history of breast cancer Essential (primary) hypertension Delirium due to known physiological condition Contact with and (suspected) exposure to other hazardous substances Bradycardia, unspecified Seizure disorder as sequela of cerebrovascular accident s/p CVA/hemorrhage, h/o breakthrough in setting of UTI/fever Closed fracture of left proximal humerus (01/10/23) CVA (cerebral vascular accident) Lymphoma Prostate cancer Hypertension Surgical History History of craniotomy for brain bleed Family History Father Personal history of malignant neoplasm prostate cancer Social History Smoking/Tobacco Use Status: Current every day Tobacco Type: cigarettes Smoking packs per day: 1 Smoking cigarettes per day: 20.0 Smoking risk assessment performed?: Yes Alcohol Intake: former Drug use: Never Substance use type: does not use Housing: house Current gender identity: male Do you feel safe at home: Yes Do you feel safe in your relationship?: Yes Results Last Vital Signs Temp 36.6 C 05/26/24 12:00 Pulse 68 05/26/24 12:00 Resp 18 05/26/24 12:00 BP 112/73 05/26/24 12:00 Pulse Ox 98 05/26/24 12:00 Insert Bladder Catheter Text: The patient was seen in the emergency department. He was placed in the supine position. His genitalia was prepped with Betadine. 2% Xylocaine jelly was instilled into the urethra to act as a local anesthetic. A 16 Yakut coud? tipped catheter was passed through the urethra into the bladder. The catheter balloon was inflated with 10 cc of sterile water. Clear urine was obtained. The patient tolerated this procedure well. The catheter was hooked to gravity drainage.
[2024-05-26 16:26] VITALS: BP 120/72; BP 120/74; PULSE 70; RESP 18; RESP 22; TEMP 36.6; TEMP 36.8; O2SAT 94
== END 2024-05-26 16:31 | disposition home or self-care (01) ==
PROVIDERS: Emergency Provider Physician Assistant; PCP Internal Medicine
DX: R33.9 Retention of urine, unspecified (principal); T83.028A Displacement of other urinary catheter, initial encounter; N39.0 Urinary tract infection, site not specified; B95.62 Methicillin resistant Staphylococcus aureus infection as the cause of diseases classified elsewhere; I10 Essential (primary) hypertension; Z86.73 Personal history of transient ischemic attack (TIA), and cerebral infarction without residual deficits; F17.210 Nicotine dependence, cigarettes, uncomplicated; Z85.46 Personal history of malignant neoplasm of prostate
CPT/HCPCS: 51702; 96374; 96375; 96376; 99284; 99283; J0131; J1885; J3010; J3370; J3372

== ENCOUNTER 2024-05-29 15:25 | Outpatient (CLI) | payer OTHER, SELFPAY ==
--- NOTE | 2024-05-29 11:00 | DI.RAD_ITS ---
Exam(s) XR HIP LT AP LAT ONLY EXAM: XR HIP LT AP LAT ONLY INDICATION: S/P CANNULATED SCREW FIXATION. COMPARISON: CR XR HIP LT AP LAT ONLY from 04/21/2024 TECHNIQUE: 2D digital imaging was performed. Two views. FINDINGS: Three partially threaded screws are again noted in the left proximal femur. There has been no change in fracture or hardware alignment. Prominent vascular calcifications noted. DATA REPOSITORY: RADIATION DOSE DELIVERED:
== END 2024-05-29 15:26 | disposition home or self-care (01) ==
LOC: DIORS 15:26
PROVIDERS: PCP Internal Medicine; Visit Provider Student in an Organized Health Care Education/Training Program
DX: S72.002A Fracture of unspecified part of neck of left femur, initial encounter for closed fracture (principal)
CPT/HCPCS: 73502

== ENCOUNTER 2024-07-07 22:08 | Inpatient (IN) | payer OTHER, SELFPAY ==
[2024-07-07] VITALS (18 sets, daily range): BP systolic 88–118; BP diastolic 60–75; PULSE 78–91; RESP 16–27; TEMP 36.3; O2SAT 89–95
--- NOTE | 2024-07-07 22:15 | DI.RAD_ITS ---
Exam(s) XR PORTABLE CHEST AP EXAM: XR PORTABLE CHEST AP CLINICAL HISTORY: altered mental status TECHNIQUE: 2D digital imaging was performed. COMPARISON: CR,XR XR PORTABLE CHEST AP from 05/24/2024 FINDINGS: LUNGS: Hyperinflation. fibrotic changes. No evidence of infiltrate or pulmonary edema.. No pleural abnormality seen. HEART: Normal size. AORTA: Normal diameter. BONES: Degenerative changes of the thoracic spine.. Soft tissues: Unremarkable. IMPRESSION: No acute findings. DATA REPOSITORY: RADIATION DOSE DELIVERED:
--- OUTSIDE RECORDS SUMMARY | 2024-07-07 22:17 | XMS_ITS ---
Author Name [facility] [place] [facility] [place] [facility] [place] Address [address] [place] [address] Care Team Providers Care Muck Hauler Name Role Phone KYRA VELASQUEZ Primary [...] Ervin's Name Patient's Relationship to Policy Ervin [facility] (WNR) MEDICARE [facility](W NR) * Aug 23, 2023 [id number] ANNALISA LOYD ITE PATIENT [facility] (WNR) MEDICARE ADVANTAGE [facility] (WNR) Aug 23, 2020 [id number] [phone] ANNALISA LOYD ITE PATIENT [facility] (WNR) MEDICARE ADVANTAGE [facility](W NR) Aug 23, 2012 [id number] ANNALISA LOYD ITJannette PATIENT Selected Encounter This section includes the information on record at [place] for the Encounter. Date/Time Encounter Type Encounter Description Reason Pro vider Source Jul 13, 2023 11:39 AM Outpatient Encounter ADMIN PAT ACTIVTIES (MASNONCT) I[facility] Encounter Template Text not used by [facility] Plan of Treatment: Future Appointments (+ 6 months) and Future Tests (+/- 45 days) The Plan of Treatment section includes future care activities for the patient from all [place] treatmentfacilities. This section includes future appointments and future orders which are active, pending or scheduled. Future Appointments This section includes appointments that were scheduled to occur 6 months from the date of the Encounter, up to a maximum of 20 appointments. The data comes from all [place] treatment facilities. Appointment Date/Time Appointment Type Appointme nt Facility Name Sep 15, 2023 01:00 PM AMBULATORY - SURGERY [facility] Oct 18, 2023 08:00 AM AMBULATORY - NONE [facility] Nov 04, 2023 09:00 AM AMBULATORY - SURGERY [facility] Nov 04, 2023 09:30 AM AMBULATORY - SURGERY [facility] Nov 29, 2023 11:30 AM AMBULATORY - NONE [facility] Dec 10, 2023 02:00 PM AMBULATORY - SURGERY [facility] Dec 13, 2023 02:30 PM AMBULATORY - MEDICINE [facility] Dec 13, 2023 02:31 PM AMBULATORY - NONE [facility] Dec 16, 2023 08:00 AM AMBULATORY - SURGERY [facility] Dec 21, 2023 01:30 PM AMBULATORY - SURGERY [facility] Lab Results: +/- 30 days of the encounter This section includes the Chemistry and Hematology Lab Results on record with [place] for the patient. Radiology Reports and Pathology Reports are provided separately, in subsequent sections. Lab Results This section contains the Chemistry/Hematology Results that were resulted 30 days before or 30 daysafter the date of the Encounter. Date/Time Source Result Type Result - Unit Interpretation Reference Range Comment Jun 16, 2023 01:20 PM [facility] PSA (FEDERAL APPELLATE LAW CLERK) Specimen Type: SERUM Comment: Tests performed on [place]lin Felt Cutter (405) SN:[id number] Ordering Provider: THERON HEIN Report Released Date/Time: Dec 09, 2022 08:40 AM Reporting Lab: [facility] [address] [facility] [address] Performing Lab: [facility] [address] [place] [id number] PSA (F[employer]ERAL APPELLATE LAW CLERK) 0.13 ng/mL 0-4.0 Social History: Smoking Status (Most current) and Tobacco Use (All prior to encounter date) This section includes the most current, and the historical, smoking and tobacco- related health factors from the [place] facility where the Encounter took place. Current Smoking Status This section includes the most current smoking, or tobacco-related health factor, from the [place] facility where the Encounter took place. Date/Time Current Smoking Status Comment Facil ity Jul 17, 2021 02:27 PM CURRENT SMOKER REINIER Bhatia [facility] Tobacco Use History This section includes a history of the smoking, or tobacco-related health factors, that were collected on or before the date of the Encounter. The data comes from the [place] facility where the Encounter took place. Date/Time Smoking Status/Tobacco Use Comment F acility Jul 01, 2021 08:55 PM [facility] TOBACCO U SE CURRENT NRT DECLINE [facility] Jul 01, 2021 02:41 PM CURRENT SMOKER REINIER Bhatia [facility] Dec [...] ALL of a patient's completed or amended [place] Advance and Rescinded Directives. The entries below indicate that a directive exists for the patient, but an actual copy is not included with this document. The data comes from all [place] facilities. Date Advance Directives Provider Source Nov [...] the Encounter. The data comes from all [place] treatment facilities. Date/Time Radiology Report Provider Source Aug 04, 2023 12:45 PM UNLISTED COPIES FO R OUTSIDE REFERRAL: GALINA LOYD [id number] -[id number] M Exm Date: AUG 04, 2023@12:45 Req Phys: TODD SANTAMARIA Pat Loc: [facility] RAD MISC XRAY [facility] (Req'g Img Loc: XRAY (OOS) Service: Unknown (Case [id number] COMPLETE) UNLISTED COPIES FOR OUTSIDE REFER(RAD Detailed) CPT:19217 Reason for Study: UNLISTED COPIES FOR OUTSIDE REFERRAL Clinical History: UNLISTED COPIES FOR OUTSIDE REFERRAL. REQUESTED BY SAAD JOHNSON [id number], [id number], [id number]. PICKED UP BY SAAD 08/04/23 Report Status: Electronically Filed Date Reported: Report: Copies (CD) made for outside facility. Impression: Copies (CD) made for outside facility Primary Diagnostic Code: VERIFIED BY: / *ELECTRONICALLY FILED* SONYA [facility] Encounter Notes: All associated encounter notes [...] COMPLETED Has Admin Note Has ADDENDA Pt's (Darrel) called stating pt had stent placed 04/29/23 and wants to know how long it is ok to stay in before needs to be removed? states pt is having Kidney stones removed 08/05 at [facility]. Requests call to discuss/advise /vivian/ HUGH QUILES L[employer] BULB TESTER Signed: 07/13/2023 11:49 Receipt Acknowledged By: 07/14/2023 07:43 /es/ SAAD JOHNSON MD, MS UROLOGY PGY-4 for BRITTNEY SOTO 07/13/2023 13:18 /vivian/ bP OSORIO MD Staff Surgeon, Urology 07/14/2023 07:42 [...] Surgeon, Urology Signed: 07/13/2023 13:21 HUGH QUILES [facility]
--- OUTSIDE RECORDS SUMMARY | 2024-07-07 22:17 | XMS_ITS | Encounter Summary ---
Author Name [place] Address [address] [place] [address] Care Team Providers Care Insurance Specialist Name Role Phone KYRA VELASQUEZ Primary [...] to Policy Ervin [facility] (WNR) MEDICARE ADVANTAGE MCR(W NR) * Aug 23, 2023 [id number] ANNALISA LOYD ITE PATIENT [facility] (WNR) MEDICARE ADVANTAGE [employer] (WNR) Aug 23, 2020 [id number] [phone] ANNALISA LOYD ITE PATIENT [facility] (WNR) MEDICARE [facility](W NR) Aug 23, 2012 [id number] ANNALISA LOYD ITE PATIENT Selected Encounter [...] activities for the patient from all [place] [facility]. This section includes future appointments and future [...] PM AMBULATORY - [place] [facility] Oct 18, 2023 08:00 AM AMBULATORY - NONE [place] [facility] Nov 04, 2023 09:00 AM [place] [facility] Nov 04, 2023 09:30 AM AM[place] [facility] Nov 29, 2023 11:30 AM AMBULATORY - NONE [facility] Dec 10, 2023 02:00 PM [place] - [place] [facility] Dec 13, 2023 02:30 PM AMBULATORY - MEDICINE [facility] Dec 13, 2023 02:31 PM AMBULATORY - NONE [place] [facility] Dec 16, 2023 08:00 AM [place] [facility] Dec 21, 2023 01:30 PM [place]BUL[place]ORY - [place] [facility] Lab Results: +/- 30 days of the encounter This section includes the Chemistry and Hematology Lab Results on record with [place] for the patient. Radiology Reports and Pathology Reports are provided separately, in subsequent sections. Lab Results This section contains the Chemistry/Hematology Results that were resulted 30 days before or 30 daysafter the date of the Encounter. Date/Time Source Result Type Result - Unit Interpretation Reference Range Comment Jun 16, 2023 01:20 PM [facility] PSA (INJECTION MOLD TOOLING TECHNICIAN) Specimen Type: SERUM Comment: Tests performed on Hamlin Equipment Processor (405) [id number] Ordering Provider: THERON HEIN Report Released Date/Time: Dec 09, 2022 08:40 AM Reporting Lab: [facility] [address] [facility] [address] Performing Lab: [place] [facility] [address] [facility] [address] PSA (INJECTION MOLD TOOLING TECHNICIAN) 0.13 ng/mL 0-4.0 Social History: Smoking Status [...] PM CURRENT SMOKER REINIER GAYLE [facility] Tobacco Use History This section includes [...] 2021 02:41 PM CURRENT SMOKER REINIER Bhatia [facility] Dec 08, 2020 08:45 [...] COPIES FO R OUTSIDE REFERRAL: GALINA LOYD [id number] -1945 M Exm Date: AUG 04, 2023@12:45 Req Phys: TODD SANTAMARIA Pat Loc: [facility] RAD MISC XRAY B1RC (Req'g Img Loc: XRAY (OOS) Service: Unknown (Case [id number] COMPLETE) UNLISTED COPIES FOR OUTSIDE REFER(RAD Detailed) CPT:93884 Reason for Study: UNLISTED COPIES FOR OUTSIDE REFERRAL Clinical History: UNLISTED COPIES FOR OUTSIDE REFERRAL. REQUESTED BY SAAD JOHNSON [id number], [id number], [id number]. PICKED UP BY SAAD 08/04/23 Report Status: Electronically Filed Date Reported: Report: Copies (CD) made for outside facility. Impression: Copies (CD) made for outside facility Primary Diagnostic Code: VERIFIED BY: / *ELECTRONICALLY FILED* SONYA GAYLE [facility] Encounter Notes: All associated encounter [...] Care Consult: COMMUNITY CARE-NEUROLOGY Consult No: [id number] [facility] Referral #: [id number] Community Provider or Hospital Information Community Provider Information [facility] [address] [place] [address] RD, [place] [address] Chief Complaint: Other Seizures(ICD-10-CM G40.89) Patient Admitted? No Level of Care Coordination Complex/Chronic Care Coordination was determined from: Chart Review Facility Community Care Office Contact Care Coordination Point of Contact: [facility] Services: Moderate Care Coordination Services Case Management, if appropriate Direct communications with interdisciplinary team Plan: This referral for Neurology was sent to [facility]. has an appt on 08/30/23 @ 13:00. This referral will on 02/26/2024. /vivian/ GAGANDEEP CHUNG RN Signed: 07/13/2023 12:57 GAGANDEEP CHUNG [facility]
--- OUTSIDE RECORDS SUMMARY | 2024-07-07 22:17 | XMS_ITS ---
[place] MED NUTRITION INDIV SUBSEQ [facility] Encounter Summary Created on: July 07, 2024 GALINA LOYD : 1945 Sex: Male Author Name [place] Address [address] [place] [address] Care Team Providers Care Sales Operations Assistant Name Role Phone RON KYRA Primary [...] Ervin's Name Patient's Relationship to Policy Ervin [facility] (WNR) MEDICARE ADVANTAGE MCR(W NR) * Aug 23, 2023 [id number] ANNALISA LOYD ITE PATIENT [facility] (WNR) MEDICARE ADVANTAGE [facility] (WNR) Aug 23, 2020 [id number] [phone] ANNALISA LOYD ITE PATIENT [facility] (WNR) MEDICARE ADVANTAGE [facility](W NR) Aug 23, 2012 [id number] ANNALISA LOYD ITJannette PATIENT Selected Encounter This section includes the information on record at [place] for the Encounter. Date/Time Encounter Type Encounter Description Reason Provider Source Jul 12, 2023 01:00 PM MED NUTRITION INDIV SUBSEQ NUTRITION/DIETETIC S-INDIVIDUAL ICD-10-CM Z68.1 Body mass index [BMI] 19.9 or less, adult [place],PURNIMA C [facility] Encounter Template Text not used by [facility] Assessments - Encounter Diagnoses This section includes the primary and secondary diagnoses documented for the Encounter. Date/Time Primary/Secondary Diagnosis Diagnosis Name Provider Source Jul 12, 2023 04:13 PM PRIMARY Body mass index [BMI] 19.9 or less, adult [place]IMA Whitesied SONYA [facility] Jul 12, 2023 04:13 PM SECONDARY Dietary counseling and surveillance [place],PURNIMA Stevo [facility] Plan of Treatment: Future Appointments (+ 6 months) and Future Tests (+/- 45 days) The Plan of Treatment section includes future care activities for the patient from all [place] treatmentfacilities. This section includes future appointments and [...] AMBULATORY - NONE [place] [facility] Nov 04, 2023 09:00 AM [place] [facility] Nov 04, 2023 09:30 AM [place] - [place] [facility] Nov 29, 2023 11:30 AM AMBULATORY - NONE [facility] Dec 10, 2023 02:00 PM [place] - [place] [facility] Dec 13, 2023 02:30 PM AMBULATORY - MEDICINE [facility] Dec 13, 2023 02:31 PM AMBULATORY - NONE [place] [facility] Dec 16, 2023 08:00 AM [place] - [place] [facility] Dec 21, 2023 01:30 PM [place] - [place] [facility] Lab Results: +/- 30 days of [...] [facility] PSA (TERRAZZO POLISHER HELPER) Specimen Type: SERUM Comment: Tests performed on Hamlin Personal Care Attendant (405) [id number] Ordering Provider: THERON HEIN Report Released Date/Time: Dec 09, 2022 08:40 AM Reporting Lab: [facility] [address] [facility] [place] [address] Performing Lab: [facility] [address] [facility] [address] PSA (TERRAZZO POLISHER HELPER) 0.13 ng/mL 0-4.0 Social History: Smoking Status [...] Source Nov 18, 2017 ADVANCE DIRECTIVE REBECCARADHA [facility] Jul 08, 2017 ADVANCE DIRECTIVE DISCUSSION PURNIMA ROJAS [facility] Radiology Reports: +/- 30 days of [...] the Encounter. The data comes from all [place] treatment facilities. Date/Time Radiology Report Provider Source Aug 04, 2023 12:45 PM UNLISTED COPIES FO R OUTSIDE REFERRAL: EVERTGALINA [id number] -1945 M Exm Date: AUG 04, 2023@12:45 Req Phys: TODD SANTAMARIA Pat Loc: [facility] RAD MISC XRAY B1RC (Req'g Img Loc: XRAY (OOS) Service: Unknown (Case [id number] COMPLETE) UNLISTED COPIES FOR OUTSIDE REFER(RAD Detailed) CPT:75225 Reason for Study: UNLISTED COPIES FOR OUTSIDE REFERRAL Clinical History: UNLISTED COPIES FOR OUTSIDE REFERRAL. REQUESTED BY SAAD JOHNSON [id number], [id number], [id number]. PICKED UP BY SAAD 08/04/23 Report Status: Electronically Filed Date Reported: Report: Copies (CD) made for outside facility. Impression: Copies (CD) made for outside facility Primary Diagnostic Code: VERIFIED BY: / *ELECTRONICALLY FILED* SONYA GAYLE [facility] Encounter Notes: All associated encounter notes [...] By: 08/27/2023 11:12 /vivian/ ADITI GARCIA Health Alarm Service Technician --- Original Document --- 07/12/23 Nutrition Follow-Up [...] to drink one glass whole milk with [place] Instant breakfast per day --> goal met, [...] is about the same - continues drinking [place] Breakfast Essentials with whole milk and half [...] fat pads Physical Assessment: Lean Muscle Mass (evangelical, clavicle, shoulder, scapula, interosseous muscle, quadriceps, calf muscle) [X] Evidence of mildly/moderately altered body composition Describe: evangelical Fluid Status: [X] Unable to observe Food [...] to two glasses of whole milk with [place] Breakfast Essentials per day Nutrition Counseling 1. Reviewed weight trends and diet recall. Pt weight up ~5 lbs in the past 2-3 months. Pt continues to eat 2 meals per day with occasional snacks. Pt drinking one glass whole milk with [place] Breakfast Essential powder mix. Pt mentions he typically skips lunch. Together, brainstormed ideas for increasing kcals. Pt willing to trial drinking additional glass of whole milk per day. Monitoring/Evaluation: Food/nutrition related history outcomes 1. Pt willing to aim to increase to drinking two glasses of whole milk with [place] Breakfast Essentials per day 2. Pt will aim to consume > 75% of meals Anthropometric Measurement Outcomes 1. Prevent further weight loss and/or gradual weight gain Nutrition-Focused Physical Finding Outcomes 1. Prevent further fat/muscle loss Recommended follow up: 3 months via /vivian/ PURNIMA GANDHI RD,CD CLINICAL DIETITIAN Signed: 07/12/2023 16:13 08/27/2023 ADDENDUM STATUS: UNSIGNED You may not VIEW this UNSIGNED Addendum. PURNIMA GANDHI [facility] Jul 12, 2023 07:37 AM NUTRITION DIETETIC [...] to drink one glass whole milk with [place] Instant breakfast per day --> goal met, [...] is about the same - continues drinking [place] Breakfast Essentials with whole milk and half [...] fat pads Physical Assessment: Lean Muscle Mass (evangelical, clavicle, shoulder, scapula, interosseous muscle, quadriceps, calf muscle) [X] Evidence of mildly/moderately altered body composition Describe: evangelical Fluid Status: [X] Unable to observe Food [...] to two glasses of whole milk with [place] Breakfast Essentials per day Nutrition Counseling 1. Reviewed weight trends and diet recall. Pt weight up ~5 lbs in the past 2-3 months. Pt continues to eat 2 meals per day with occasional snacks. Pt drinking one glass whole milk with [place] Breakfast Essential powder mix. Pt mentions he typically skips lunch. Together, brainstormed ideas for increasing kcals. Pt willing to trial drinking additional glass of whole milk per day. Monitoring/Evaluation: Food/nutrition related history outcomes 1. Pt willing to aim to increase to drinking two glasses of whole milk with [place] Breakfast Essentials per day 2. Pt will [...] By: 08/27/2023 11:12 /vivian/ ADITI GARCIA Health Alarm Service Technician 08/27/2023 ADDENDUM STATUS: COMPLETED TW called and spoke with spouse re: r/s Nutrition appt. Negotiated date and time with spouse. 10/25/2023 @ 1:00pm. /vivian/ ADITI GARCIA Health Alarm Service Technician Signed: 08/27/2023 11:14 PURNIMA GANDHI [facility]
--- OUTSIDE RECORDS SUMMARY | 2024-07-07 22:17 | XMS_ITS | Encounter Summary ---
Author Name [place] Address [address] [place] [address] Care Team Providers Care Supply Chain Manager Name Role Phone KYRA VELASQUEZ Primary Care [...] Ervin's Name Patient's Relationship to Policy Ervin [facility] (WNR) MEDICARE [facility](W NR) * Aug 23, 2023 [id number] ANNALISA LOYD ITE PATIENT [facility] MCR (WNR) MEDICARE ADVANTAGE [facility] (WNR) Aug 23, 2020 [id number] [phone] ANNALISA LOYD ITE PATIENT [facility] (WNR) MEDICARE ADVANTAGE [facility](W NR) Aug 23, 2012 [id number] [phone] ANNALISA LOYD ITJannette PATIENT Selected Encounter This [...] 01:00 PM AM[place]ORY [place] [facility] Oct 18, 2023 08:00 AM [place]ORY - NONE [place] [facility] Nov 04, 2023 09:00 AM [place] - [place] [facility] Nov 04, 2023 09:30 AM [place] - [place] [facility] Nov 29, 2023 11:30 AM AMBULATORY - NONE [facility] Dec 10, 2023 02:00 PM [place] [facility] Dec 13, 2023 02:30 PM AMBULATORY - MEDICINE [facility] Dec 13, 2023 02:31 PM [place]ORY - NONE [place] [facility] Dec 16, 2023 08:00 AM [place] [facility] Dec 21, 2023 01:30 PM [place] - [place] [facility] Feb 21, 2024 10:15 AM [place]ORY - NONE [place] [facility] Feb 21, 2024 11:00 AM [place]ATORY - NONE [place] [facility] Social History: Smoking Status (Most [...] 02:27 PM CURRENT SMOKER [place] [facility] Tobacco Use History This section [...] COPIES FO R OUTSIDE REFERRAL: GALINA LOYD [id number] -1945 M Exm Date: SEP 10, 2023@15:25 Req Phys: TODD SANTAMARIA Pat Loc: [facility] RAD MISC XRAY B1RC (Req'g Img Loc: XRAY (OOS) Service: Unknown (Case [id number] COMPLETE) UNLISTED COPIES FOR OUTSIDE REFER(RAD Detailed) CPT:66277 Reason for Study: UNLISTED COPIES FOR OUTSIDE REFERRAL Clinical History: UNLISTED COPIES FOR OUTSIDE REFERRAL. REQUESTED BY [facility]. ALL ABD/PEL IMAGES FROM 2022. SENT BY UPS TO [facility] TRACKING #[id number] [phone] Report Status: Electronically Filed Date Reported: Report: Copies (CD) made for outside facility. Impression: Copies (CD) made for outside facility Primary Diagnostic Code: VERIFIED BY: / *ELECTRONICALLY FILED* SONYA PINON [facility] Aug 04, 2023 12:45 PM UNLISTED COPIES FO R OUTSIDE REFERRAL: GALINA LOYD [id number] -1945 M Exm Date: AUG 04, 2023@12:45 Req Phys: TODD SANTAMARIA Pat Loc: [facility] XRAY B1RC (Req'g Img Loc: XRAY (OOS) Service: Unknown (Case [id number] COMPLETE) UNLISTED COPIES FOR OUTSIDE REFER(RAD Detailed) CPT:67574 Reason for Study: UNLISTED COPIES FOR OUTSIDE REFERRAL Clinical History: UNLISTED COPIES FOR OUTSIDE REFERRAL. REQUESTED BY SAAD JOHNSON [id number], [id number], [id number]. PICKED UP BY SAAD 08/04/23 Report Status: Electronically Filed Date Reported: Report: Copies (CD) made for outside facility. Impression: Copies (CD) made for outside facility Primary Diagnostic Code: VERIFIED BY: / *ELECTRONICALLY FILED* SONYA GAYLE [facility] Encounter Notes: All associated encounter [...] Patient Name: GALINA LOYD Patient Primary Phone: [phone] Patient Primary Address: [address] [place] [id number] Patient : 1945 Patient Age: 77 Current Location: Call Back Number: [phone] Caller/Recipient Relation to Patient: Self Administrative Administrative Note Reason: Outside Care Performed Medications Refill/Renewal Request: Marli went to [facility] with a fever and COVID on 08/22/23. Sitat was prescribed Paxlovid and his can not find a pharmacy that can fill the RX for him. [facility]. Administrative Note Comments: Sitat also needs a f/u with PCP post ED visit. /vivian/ WADE NEUMANN VISN [facility] AMSA Signed: 08/24/2023 08:22 Receipt Acknowledged By: 08/24/2023 08:37 /vivian/ JENIFER SHANE LPN 08/24/2023 16:44 /vivian/ OJ GIL RN 08/24/2023 16:21 /vivian/ KYRA VELASQUEZ M.D 08/24/2023 ADDENDUM STATUS: COMPLETED records requested /vivian/ JENIFER SHANE LPN Signed: 08/24/2023 08:37 08/24/2023 ADDENDUM STATUS: COMPLETED pt obtained paxlovid locally per 08/24/23 [facility] note /vivian/ KYRA VELASQUEZ M.D [...] GIL RN Signed: 08/24/2023 16:46 WADE NEUMANN [facility]
--- OUTSIDE RECORDS SUMMARY | 2024-07-07 22:17 | XMS_ITS | Encounter Summary ---
Author Name [place] Address [address] [place] [address] Care Team Providers Care Professor Of Theatre Name Role Phone KYRA VELASQUEZ Primary Care [...] Ervin [facility] (WNR) MEDICARE [facility](W NR) * Aug 23, 2023 [id number] [phone] ANNALISA LOYD ITE PATIENT [facility] (WNR) MEDICARE ADVANTAGE [facility] (WNR) Aug 23, 2020 [id number] [phone] ANNALISA LOYD ITE PATIENT [facility] (WNR) MEDICARE [facility](W NR) Aug 23, 2012 [id number] [phone] ANNALISA LOYD ITE PATIENT Selected Encounter [...] Nov 18, 2017 ADVANCE DIRECTIVE RADHA FERNANDEZ [facility] Jul 08, 2017 ADVANCE DIRECTIVE DISCUSSION PURNIMA ROJAS [facility]
--- OUTSIDE RECORDS SUMMARY | 2024-07-07 22:17 | XMS_ITS | Continuity of Care Document ---
Author Name [facility] Organization [facility] Care Team Providers Care Labor Economist Name Role Phone [facility] Unavailable Unavailable Problems Combined list of problems from Department of Defense and Veterans Affairs facilities. It does not include entries that were removed or entered in error. Problem Status Onset Date Problem Type Date of Resolution Comments Source AAA - Abdominal aortic aneurysm Active Condition Nov 18, 2017 Entered By: KYLAH CHAVEZ AEJeremy Comment: 3.9cm June 2017 [facility] Alcohol dependence Active Condition [facility] Bradycardia Active Condition [facility] Delirium Active Condition [facility] Depression Active Condition Jul 02 Entered By: NILAY NAQVI Comment: in context of admission to [facility] Jun 2021 [facility] Exposure to potentially hazardous substance Active [...] Injury due to chemical exposure (SNOMED CT 115535347) Active Condition [facility] Non-traumatic subdural haemorrhage Active Condition [facility] Thoracic aortic aneurysm without rupture Active Condition Nov 18, 2017 Entered By: KYLAH CHAVEZ AEJeremy Comment: 4.0cm June 2017 [facility] Tobacco dependence Active Condition [facility] Diagnosis: ICD-10-CM Z02.9 Encounter for administrative examinations, unspecified Active Diagnosis [facility] Diagnosis: ICD-10-CM I71.40 Abdominal aortic aneurysm, without rupture, unspecified Active Diagnosis [facility] Diagnosis: ICD-10-CM R33.8 Other retention of urine Active Diagnosis [facility] Diagnosis: ICD-10-CM L89.43 Pressr ulcer of contig site of back, buttock and hip, stg 3 Active Diagnosis [facility] Diagnosis: ICD-10-CM R33.9 Retention of urine, unspecified Active Diagnosis [facility] Diagnosis: ICD-10-CM L89.893 Pressure ulcer of other site, stage 3 [facility] Diagnosis: ICD-10-CM Z71.3 Dietary counseling and surveillance Active Diagnosis [facility] Diagnosis: ICD-10-CM N20.1 Calculus of ureter Active Diagnosis [facility] Diagnosis: ICD-10-CM L89.894 Pressure ulcer of other site, stage 4 Active Diagnosis [facility] Diagnosis: ICD-10-CM L89.890 Pressure ulcer of other site, unstageable Active Diagnosis [facility] Diagnosis: ICD-10-CM F01.A3 Vascular dementia, mild, with mood disturbance Active Diagnosis [facility] Diagnosis: ICD-10-CM N20.0 Calculus of kidney Active Diagnosis [facility] Diagnosis: ICD-10-CM Z48.89 Encounter for other specified surgical aftercare Active Diagnosis [facility] Diagnosis: ICD-10-CM Z01.818 Encounter for other preprocedural examination Active Diagnosis [facility] Diagnosis: ICD-10-CM Z68.1 Body mass index [BMI] 19.9 or less, adult Active Diagnosis [facility] Diagnosis: ICD-10-CM Z23 Encounter for immunization Active Diagnosis [facility] Diagnosis: ICD-10-CM 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 Active Diagnosis [facility] Diagnosis: ICD-10-CM R68.89 Other general symptoms and signs Active Diagnosis [facility] Diagnosis: ICD-10-CM Z51.89 Encounter for other specified aftercare Active Diagnosis [facility] Diagnosis: ICD-10-CM F32.9 Major depressive disorder, single episode, unspecified Active Diagnosis [facility] Diagnosis: ICD-10-CM Z87.440 Personal history of urinary (tract) infections Active Diagnosis [facility] Diagnosis: ICD-10-CM Z98.890 Other specified postprocedural states Active Diagnosis [facility] Medications Combined list of outpatient medications from Department of Defense and Veterans Affairs facilities.Medications provided include 1) outpatient medications from the last 15 months, and 2) patient-reported medications. Medication Details Route Status Patient Instructions Prescription Expires Prescription Number Last Dispense Date Ordering Provider Order Date Order Qty Source ATORVASTATI N CA 40MG TAB TAKE ONE TABLET BY MOUTH ONCE EVERY EVENING TO LOWER CHOLESTE ROL ORAL ACTIVE 07/08/2025 [id number] KATHARINE VELASQUEZ ANN 2023 90 [facility] ATORVASTATI N CA 40MG TAB TAKE TWO TABLET(S ) BY MOUTH EVERY EVENING TO LOWER CHOLESTE ROL ORAL DISCONT INUED (EDIT) 04/07/2025 [id number] 4 KATHARINE VELASQUEZ ANN 2023 180 [facility] ATORVASTATI N CA 40MG TAB TAKE TWO TABLET(S ) BY MOUTH EVERY EVENING TO LOWER CHOLESTE ROL ORAL DISCONT INUED 05/10/2024 [id number] BROTHERSLAUREN JR 2022 180 [facility] CETIRIZINE HCL 10MG TAB TAKE ONE TABLET BY MOUTH ONCE FOR IMAGING STUDY TAKE 1 HOUR PRIOR TO IMAGING STUDY. ORAL 06/04/2024 [id number] VIMAL FAM 2023 1 [facility] DIPHENHYDRA MINE HCL 50MG CAP TAKE ONE CAPSULE BY MOUTH ONCE - TAKE ONE HOUR PRIOR TO CT ORAL DISCONT INUED BY PROVIDE R 12/04/2023 [id number] VIMAL FAM 2023 1 [facility] LACOSAMIDE 50MG TAB TAKE FOUR TABLETS BY MOUTH TWICE A DAY . MAY TAKE 2 EXTRA TABLETS (100MG) IF ANY UTI, FEVER OR ANY SURGICAL PROCEDUR E. ORAL ACTIVE 12/16/2024 [id number] 4 KARINA RODGERS 2023 240 [facility] LACOSAMIDE 50MG TAB TAKE FOUR TABLETS BY MOUTH TWICE A DAY . MAY TAKE 2 EXTRA TABLETS (100MG) IF ANY UTI, FEVER OR ANY SURGICAL PROCEDUR E. ORAL DISCONT INUED 07/26/2024 [id number] 4 JOSE ANGELA R,CRISTAL 2023 240 [facility] LACOSAMIDE 50MG TAB TAKE FOUR TABLETS BY MOUTH TWICE A DAY - MAY TAKE 2 EXTRA TABLETS (100MG) IF ANY UTI, FEVER OR ANY SURGICAL PROCEDUR E. *NOTE NEW STRENGTH /DIRECTI ONS* ORAL DISCONT INUED 07/31/2023 [id number] 3 KATHARINE VELASQUEZ 2022 240 [facility] LACOSAMIDE 50MG TAB TAKE FOUR TABLETS BY MOUTH TWICE A DAY - MAY TAKE 2 EXTRA TABLETS (100MG) IF ANY UTI, FEVER OR ANY SURGICAL PROCEDUR E. *NOTE NEW STRENGTH /DIRECTI ONS* ORAL DISCONT INUED 06/21/2023 [id number] ROMEO R,CRISTAL 2022 240 [facility] LACOSAMIDE 50MG TAB TAKE FOUR TABLETS BY MOUTH TWICE A DAY MAY TAKE AN EXTRA TWO TABLETS IF ANY UTI,FEVE R, OR ANY SURGICAL PROCEDUR E ORAL 01/15/2024 [id number] Husam VENTURA ERGIO A 2022 240 [facility] LACTOBACILL US ACIDOPHILUS CAP TAKE ONE CAPSULE BY MOUTH ONCE DAILY FOR DIGESTIV E CARE ORAL ACTIVE 04/07/2025 [id number] 4 KATHARINE VELASQUEZ 2023 100 [facility] LACTOBACILL US COMBO TAB TAKE ONE TABLET BY MOUTH ONCE DAILY FOR GI ORAL DISCONT INUED 05/26/2024 [id number] 4 LAUREN BILLY JR 2022 100 [facility] MELATONIN 3MG CAP/TAB TAKE ONE CAP/TAB BY MOUTH AT BEDTIME NEEDED FOR SLEEP ORAL DISCONT INUED BY PROVIDE R 04/07/2025 [id number] 4 KATHARINE VELASQUEZ [address] [facility] MELATONIN 3MG CAP/TAB TAKE ONE CAP/TAB BY MOUTH AT BEDTIME NEEDED FOR SLEEP ORAL DISCONT INUED 05/10/2024 [id number] 4 LAUREN BILLY JR 2022 120 [facility] METHYLPREDN ISOLONE 32MG TAB TAKE ONE TABLET BY MOUTH TWICE A DAY - TAKE 1 TABLET 12 HOURS AND 2 HOURS PRIOR TO THE ADMINSTR ATION OF CONTRAST MEDIA (LASSER PROTOCOL ) ORAL DISCONT INUED BY PROVIDE R 12/04/2023 [id number] 4 GEOVANYSHARONVIMAL SHIELDS Jeremy 2023 2 [facility] METHYLPREDN ISOLONE 32MG TAB TAKE ONE TABLET BY MOUTH TWICE A DAY GIVE 12 AND 2 HOURS PRIOR TO THE ADMINIST RATION OF CONTRAST MEDIA (LASSER PROTOCOL ) GIVE 12 AND 2 HOURS PRIOR TO THE ADMINIST RATION OF CONTRAST MEDIA (LASSER PROTOCOL ) ORAL 06/04/2024 [id number] VIMAL FAM 2023 2 [facility] MIDAZOLAM 5MG/SPRAY SOLN,SPRAY, NASAL SPRAY 1 SPRAY INTRANAS ALLY ONCE NEEDED FOR CONVULSI VE SEIZURE, MAY REPEAT ONCE IN 10 MINUTES IF ANOTHER SEIZURE NASAL ACTIVE 07/15/2024 [id number] 4 KARINA RODGERS 2023 2 [facility] MIDAZOLAM 5MG/SPRAY SOLN,SPRAY, NASAL SPRAY 1 SPRAY INTRANAS ALLY ONCE NEEDED FOR CONVULSI VE SEIZURE, MAY REPEAT ONCE IN 10 MINUTES IF ANOTHER SEIZURE NASAL 06/17/2024 [id number] 4 KARINA RODGERS 2023 2 [facility] NITROFURANT OIN MONOHYDRATE /MACROCRYST ALLINE 100MG CAP,SA TAKE ONE CAPSULE BY MOUTH TWICE A DAY WITH MEALS TO PREVENT UTI - PLEASE START THIS MEDICATI ON THE MORNING OF WednesdayDECEMBER 09 IN PREPARAT ION FOR YOUR DECEMBER 15 UROLOGY PROCEDUR E. - PLEASE START THIS MEDICATI ON THE MORNING OF WednesdayDECEMBER 09 IN PREPARAT ION FOR YOUR DECEMBER 15 UROLOGY PROCEDUR E. ORAL DISCONT INUED BY PROVIDE R 01/01/2024 [id number] [address] OSORIO [address] [facility] POTASSIUM CHLORIDE 10MEQ TAB,SA TAKE ONE TABLET BY MOUTH EVERY MORNING WITH BREAKFAS T TO SUPPLEME NT JAMEY M ORAL ACTIVE 04/07/2025 [id number] 4 KATHARINE VELASQUEZ [address] [facility] POTASSIUM CHLORIDE 10MEQ TAB,SA TAKE ONE TABLET BY MOUTH EVERY MORNING WITH BREAKFAS T TO SUPPLEME NT JAMEY Muñiz ORAL DISCONT INUED 05/10/2024 [id number] 4 LAUREN BILLY JR [address] [facility] TAMSULOSIN HCL 0.4MG CAP TAKE TWO CAPSULES BY MOUTH ONCE DAILY 30 MINUTES AFTER THE SAME MEALTIME EACH DAY FOR PROSTATE /URINARY SYMPTOMS . ORAL ACTIVE 05/04/2025 [id number] 4 Joellen OSORIO [address] [facility] TAMSULOSIN HCL 0.4MG CAP TAKE ONE CAPSULE BY MOUTH TWICE A DAY 30 MINUTES AFTER THE SAME MEALTIME EACH DAY FOR PROSTATE /URINARY SYMPTOMS . ORAL DISCONT INUED (EDIT) 04/07/2025 [id number] 4 KATHARINE VELASQUEZ [address] [facility] TAMSULOSIN HCL 0.4MG CAP TAKE ONE CAPSULE BY MOUTH TWICE A DAY 30 MINUTES AFTER THE SAME MEALTIME EACH DAY FOR PROSTATE /URINARY SYMPTOMS . ORAL DISCONT INUED 05/10/2024 [id number] LAUREN BILLY JR [address] [facility] VASHE WOUND THERAPY SOLN,TOP APPLY APPLICAT ION TOPICALL Y NEEDED PRESSURE INJURIES TOPICA L ACTIVE 04/12/2025 [id number] 4 DANIELLE QUINTERO 2023 500 [facility] Allergies, Adverse Reactions, Alerts Combined list of allergies from Department of Defense and Veterans Affairs facilities. It does not include entries that were removed or entered in error. Substance Category Reaction Severity Reaction type Status Date Reported Comments Source ANCEF INJECTION Propensity to adverse reactions to drug (finding) Anaphylaxis , Low blood pressure SEVERE active 4 [facility] OMNIPAQUE 350 INJECTION Propensity to adverse reactions to drug (finding) Urticaria MILD active 7 [facility] OMNIPAQUE 350 INJECTION Propensity to adverse reactions to drug (finding) active 1 [facility] ROCURONIUM BROMIDE Propensity to adverse reactions to drug (finding) Anaphylaxis , Low blood pressure SEVERE active 4 [facility] Immunizations Combined list of available immunizations from the Department of Defense and Veterans Affairs facilities. Immunization Series Date Given Administered By Site Reaction Lot Number CVX Code Drug Heel Gummer Status Comments Source INFLUENZA, HIGH-DOSE, QUADRIVALENT 2022 [employer] RIGHT DELTO ID [id number] 197 complet ed [facility] INFLUENZA VACCINE, QUADRIVALENT, ADJUVANTED 2021 205 complet ed [facility] COVID-19 (MODERNA), MRNA, LNP-S, PF, 100 MCG/0.5ML DOSE OR 50 MCG/0.25ML DOSE 3 2021 207 complet ed MOD; [id number] ; 2 [facility] COVID-19 ([employer]), VECTOR-NR, RS-AD26, PF, 0.5 ML 2 2020 212 complet ed JSN; [id number]; 2 [facility] INFLUENZA VACCINE, QUADRIVALENT, ADJUVANTED 2020 205 complet ed [facility] COVID-19 ([employer]), VECTOR-NR, RS-AD26, PF, 0.5 ML 1 2020 212 complet ed JSN; [id number]; 1 [facility] INFLUENZA, INJECTABLE, QUADRIVALENT, PRESERVATIVE FREE 2019 150 complet ed [facility] INFLUENZA, INJECTABLE, QUADRIVALENT, PRESERVATIVE FREE 2018 150 complet ed Site: Right Deltoid [facility] ZOSTER RECOMBINANT 2 2018 187 complet ed [facility] INFLUENZA, INJECTABLE, QUADRIVALENT 2018 158 complet ed Site: Right Deltoid [facility] ZOSTER RECOMBINANT [address] [facility] INFLUENZA, SEASONAL, INJECTABLE 2016 141 complet ed Site: Right Deltoid [facility] PNEUMOCOCCAL POLYSACCHARID E PPV23 2015 33 complet ed [facility] INFLUENZA, UNSPECIFIED FORMULATION 2015 88 complet ed Site: Right Deltoid [facility] INFLUENZA, UNSPECIFIED FORMULATION 2014 88 complet ed Site: Left [facility]toid [facility] PNEUMOCOCCAL CONJUGATE PCV 13 2014 133 complet ed [facility] INFLUENZA, UNSPECIFIED FORMULATION 2013 88 complet ed [facility] , [place] [facility] TD(ADULT) UNSPECIFIED FORMULATION 2013 139 complet ed [facility] TDAP 2013 115 complet ed non-VA facility, date appx [facility] ZOSTER LIVE 2013 121 complet ed [facility] Results Combined list of recent chemistry, hematology and other laboratory results from Department of Defense and Veterans Affairs, ranging from 15 months to all on record, depending upon the facility. Order Name Results Value Reference Range Date Interpretation Specimen Comments Source URINALYS IS W/REFLEX TO CULTURE COLOR OF URINE Light-Ye llow 06/07 Specimen Type: URINE No comment entered. Ordering Provider: CAROLYN CERNA Report Released Date/Time: Jun 07, 2024 04:57 PM Reporting Lab: [facility] [address] [facility] [address] Performing [facility] [address] [facility] [address] [facility] URINALYS IS W/REFLEX TO CULTURE SPECIFIC GRAVITY OF URINE BY REFRACTOME TRY 1.011 1.003 - 1.030 06/07 Specimen Type: URINE No comment entered. Ordering Provider: CAROLYN CERNA Report Released Date/Time: Jun 07, 2024 04:57 PM Reporting Lab: [facility] [address] [facility] [address] Performing Lab: [facility] [address] [facility] [address] [facility] URINALYS IS W/REFLEX TO CULTURE UROBILINOG EN [MASS/VOLU ME] IN URINE <2.0mg/d L <2.0 - 2.0 06/07 Specimen Type: URINE No comment entered. Ordering Provider: CAROLYN CERNA Report Released Date/Time: Jun 07, 2024 04:57 PM Reporting Lab: [facility] [address] [place] [facility] [place] [address] Performing Lab: [facility] [address] [place] [facility] [place] [address] [facility] URINALYS IS W/REFLEX TO CULTURE BILIRUBIN. TOTAL [PRESENCE] IN URINE BY TEST STRIP NEG 06/07 Specimen Type: URINE No comment entered. Ordering Provider: CAROLYN CERNA Report Released Date/Time: Jun 07, 2024 04:57 PM Reporting Lab: [facility] [address] [place] [facility] [place] [address] Performing Lab: [facility] [address] [place] [facility] [place] [address] [facility] URINALYS IS W/REFLEX TO CULTURE KETONES [PRESENCE] IN URINE NEGmg/dL 06/07 Specimen Type: URINE No comment entered. Ordering Provider: CAROLYN CERNA Report Released Date/Time: Jun 07, 2024 04:57 PM Reporting Lab: [facility] [address] [place] [facility] [place] [address] Performing Lab: [facility] [address] [place] [facility] [place] [address] [facility] URINALYS IS W/REFLEX TO CULTURE GLUCOSE [MASS/VOLU ME] IN URINE BY TEST STRIP NEGmg/dL 06/07 Specimen Type: URINE No comment entered. Ordering Provider: CAROLYN CERNA Report Released Date/Time: Jun 07, 2024 04:57 PM Reporting Lab: [facility] [address] [place] [facility] [place] [address] Performing Lab: [facility] [address] [place] [facility] [place] [address] [facility] URINALYS IS W/REFLEX TO CULTURE PROTEIN [MASS/VOLU ME] IN URINE BY TEST STRIP TRACEmg/ dL 06/07 Specimen Type: URINE No comment entered. Ordering Provider: CAROLYN CERNA Report Released Date/Time: Jun 07, 2024 04:57 PM Reporting Lab: [facility] [address] [facility] [address] Performing Lab: [facility] [address] [place] [facility] [place] [address] [facility] URINALYS IS W/REFLEX TO CULTURE PH OF URINE BY TEST STRIP 5.5 5 - 8 06/07 Specimen Type: URINE No comment entered. Ordering Provider: CAROLYN CERNA Report Released Date/Time: Jun 07, 2024 04:57 PM Reporting Lab: [facility] [address] [place] [facility] [place] [address] Performing Lab: [facility] [address] [facility] [address] [facility] URINALYS IS W/REFLEX TO CULTURE LEUKOCYTES [#/AREA] IN URINE SEDIMENT BY MICROSCOPY HIGH POWER FIELD 47 /[HPF] 0 - 5 06/07 H Specimen Type: URINE No comment entered. Ordering Provider: CAROLYN CERNA Report Released Date/Time: Jun 07, 2024 04:57 PM Reporting Lab: [facility] [address] [facility] [address] Performing Lab: [facility] [address] [place] [facility] [place] [address] [facility] URINALYS IS W/REFLEX TO CULTURE BACTERIA [PRESENCE] IN URINE SEDIMENT BY LIGHT MICROSCOPY MANY 06/07 Specimen Type: URINE No comment entered. Ordering Provider: CAROLYN CERNA Report Released Date/Time: Jun 07, 2024 04:57 PM Reporting Lab: [facility] [address] [facility] [address] Performing Lab: [facility] [address] [facility] [address] [facility] URINALYS IS W/REFLEX TO CULTURE CALCIUM OXALATE CRYSTALS [PRESENCE] IN URINE SEDIMENT BY LIGHT MICROSCOPY RARE 06/07 Specimen Type: URINE No comment entered. Ordering Provider: CAROLYN CERNA Report Released Date/Time: Jun 07, 2024 04:57 PM Reporting Lab: [facility] [address] [facility] [address] Performing Lab: [facility] [address] [facility] [address] [facility] URINALYS IS W/REFLEX TO CULTURE ERYTHROCYT ES [#/AREA] IN URINE SEDIMENT BY MICROSCOPY HIGH POWER FIELD 14 /[HPF] 0 - 2 06/07 H Specimen Type: URINE No comment entered. Ordering Provider: CAROLYN CERNA Report Released Date/Time: Jun 07, 2024 04:57 PM Reporting Lab: [facility] [address] [facility] [address] Performing Lab: [facility] [address] [facility] [address] [facility] URINALYS IS W/REFLEX TO CULTURE APPEARANCE OF URINE CLEAR 06/07 Specimen Type: URINE No comment entered. Ordering Provider: CAROLYN CERNA Report Released Date/Time: Jun 07, 2024 04:57 PM Reporting Lab: [facility] [address] [facility] [address] Performing Lab: [facility] [address] [facility] [address] [facility] URINALYS IS W/REFLEX TO CULTURE HEMOGLOBIN [PRESENCE] IN URINE MOD 06/07 Specimen Type: URINE No comment entered. Ordering Provider: CAROLYN CERNA Report Released Date/Time: Jun 07, 2024 04:57 PM Reporting Lab: [facility] [address] [facility] [address] Performing Lab: [facility] [address] [facility] [address] [facility] URINALYS IS W/REFLEX TO CULTURE NITRITE [PRESENCE] IN URINE BY TEST STRIP NEG 06/07 Specimen Type: URINE No comment entered. Ordering Provider: CAROLYN CERNA Report Released Date/Time: Jun 07, 2024 04:57 PM Reporting Lab: [facility] [address] [facility] [address] Performing Lab: [facility] [address] [facility] [address] [facility] URINALYS IS W/REFLEX TO CULTURE LEUKOCYTES [PRESENCE] IN URINE LG 06/07 Specimen Type: URINE No comment entered. Ordering Provider: CAROLYN CERNA Report Released Date/Time: Jun 07, 2024 04:57 PM Reporting Lab: [facility] [address] [facility] [address] Performing Lab: [facility] [address] [facility] [address] [facility] URINALYS IS W/REFLEX TO CULTURE MICROSCOPI C-iQ Complete d 06/07 Specimen Type: URINE No comment entered. Ordering Provider: CAROLYN CERNA Report Released Date/Time: Jun 07, 2024 04:57 PM Reporting Lab: [facility] [address] [facility] [address] Performing Lab: [facility] [address] [facility] [address] [facility] UREA NITROGEN UREA NITROGEN [MASS/VOLU ME] IN SERUM OR PLASMA 10 mg/dL 7 - 05/04 Specimen Type: PLASMA Comment: , Tests performed on [employer] SN:[id number] (405) Ordering Provider: Kirsten FAM Report Released Date/Time: Nov 15, 2023 11:30 AM Reporting Lab: [facility] [address] [facility] [address] Performing Lab: [facility] [address] [facility] [address] [facility] CREATINI NE WITH eGFR PANEL CREATININE [MASS/VOLU ME] IN SERUM OR PLASMA 0.91 mg/dL 0.50 - 1.50 05/04 Specimen Type: PLASMA Comment: , Tests performed on [employer] [place] SN:[id number] (405) Ordering Provider: Kirsten FAM Report Released Date/Time: Nov 15, 2023 11:30 AM Reporting Lab: [facility] [address] [facility] [address] Performing Lab: [facility] [address] [facility] [address] [facility] CREATINI NE WITH eGFR PANEL GLOMERULAR FILTRATION RATE/1.73 SQ M.PREDICTE D [VOLUME RATE/AREA] IN SERUM, PLASMA OR BLOOD BY CREATININE -BASED FORMULA (CKD-EPI 2020) 86 05/04 Specimen Type: PLASMA Comment: , Tests performed on [email or web address] SN:[id number] (786) Ordering Provider: Kirsten FAM Report Released Date/Time: Nov 15, 2023 11:30 AM Reporting Lab: [facility] [address] [facility] [address] Performing Lab: [facility] [address] [facility] [address] [facility] URINALYS IS W/REFLEX TO CULTURE COLOR OF URINE Light-Or keshav 11/28 Specimen Type: URINE No comment entered. Ordering Provider: ÁNGELA OSORIO [facility] Report Released Date/Time: Nov 24, 2023 05:48 PM Reporting Lab: [facility] [address] [facility] [address] Performing Lab: [facility] [address] [facility] [address] [facility] URINALYS IS W/REFLEX TO CULTURE SPECIFIC GRAVITY OF URINE BY REFRACTOME TRY 1.013 1.003 - 1.030 11/28 Specimen Type: URINE No comment entered. Ordering Provider: ÁNGELA OSORIO [facility] IS[facility] Report Released Date/Time: Nov 24, 2023 05:48 PM Reporting Lab: [facility] [address] [facility] [address] Performing Lab: [facility] [address] [facility] [address] [facility] URINALYS IS W/REFLEX TO CULTURE UROBILINOG EN [MASS/VOLU ME] IN URINE <2.0mg/d L <2.0 - 2.0 11/28 Specimen Type: URINE No comment entered. Ordering Provider: ÁNGELA OSORIO [facility] Report Released Date/Time: Nov 24, 2023 05:48 PM Reporting Lab: [facility] [address] [facility] [address] Performing Lab: [facility] [address] [facility] [address] [facility] URINALYS IS W/REFLEX TO CULTURE BILIRUBIN. TOTAL [PRESENCE] IN URINE BY TEST STRIP NEG 11/28 Specimen Type: URINE No comment entered. Ordering Provider: ÁNGELA OSORIO [facility] Report Released Date/Time: Nov 24, 2023 05:48 PM Reporting Lab: [facility] [address] [facility] [address] Performing Lab[facility] [address] [facility] [address] [facility] URINALYS IS W/REFLEX TO CULTURE KETONES [PRESENCE] IN URINE NEGmg/dL 11/28 Specimen Type: URINE No comment entered. Ordering Provider: ÁNGELA [facility]ORIO [facility] ISHMAEL Report Released Date/Time: Nov 24, 2023 05:48 PM Reporting Lab: [facility] [address] [facility] [address] Performing Lab: [facility] [address] [facility] [address] [facility] URINALYS IS W/REFLEX TO CULTURE GLUCOSE [MASS/VOLU ME] IN URINE BY TEST STRIP TRACEmg/ dL 11/28 Specimen Type: URINE No comment entered. Ordering Provider: ÁNGELA [facility] ISHMAEL Report Released Date/Time: Nov 24, 2023 05:48 PM Reporting Lab: [facility] [address] [facility] [address] Performing Lab: [facility] [address] [facility] [address] [facility] URINALYS IS W/REFLEX TO CULTURE PROTEIN [MASS/VOLU ME] IN URINE BY TEST STRIP 100 mg/dL 11/28 Specimen Type: URINE No comment entered. Ordering Provider: ÁNGELA [facility] ISHMAEL Report Released Date/Time: Nov 24, 2023 05:48 PM Reporting Lab: [facility] [address] [facility] [address] Performing Lab: [facility] [address] [facility] [address] [facility] URINALYS IS W/REFLEX TO CULTURE PH OF URINE BY TEST STRIP 6.5 5 - 8 11/28 Specimen Type: URINE No comment entered. Ordering Provider: ÁNGELA [facility] ISHMAEL Report Released Date/Time: Nov 24, 2023 05:48 PM Reporting Lab: [facility] [address] [facility] [address] Performing Lab: [facility] [address] [facility] [address] [facility] URINALYS IS W/REFLEX TO CULTURE LEUKOCYTES [#/AREA] IN URINE SEDIMENT BY MICROSCOPY HIGH POWER FIELD >182/[HP F] 0 - 5 11/28 H Specimen Type: URINE No comment entered. Ordering Provider: ÁNGELA [facility] IS[facility]MA[facility] Report Released Date/Time: Nov 24, 2023 05:48 PM Reporting Lab: [facility] [address] [facility] [address] Performing Lab: [facility] [address] [facility] [address] [facility] URINALYS IS W/REFLEX TO CULTURE BACTERIA [PRESENCE] IN URINE SEDIMENT BY LIGHT MICROSCOPY FEW 11/28 Specimen Type: URINE No comment entered. Ordering Provider: ÁNGELA [facility] IS[facility]MA[facility] Report Released Date/Time: Nov 24, 2023 05:48 PM Reporting Lab: [facility] [address] [facility] [address] Performing Lab: [facility] [address] [facility] [address] [facility] URINALYS IS W/REFLEX TO CULTURE MUCUS [PRESENCE] IN URINE SEDIMENT BY LIGHT MICROSCOPY FEW 11/28 Specimen Type: URINE No comment entered. Ordering Provider: ÁNEGLA OSORIO ISHMAEL Report Released Date/Time: Nov 24, 2023 05:48 PM Reporting Lab: [facility] [address] [facility] [address] Performing Lab: [facility] [address] [facility] [address] [facility] URINALYS IS W/REFLEX TO CULTURE ERYTHROCYT ES [#/AREA] IN URINE SEDIMENT BY MICROSCOPY HIGH POWER FIELD >182/[HP F] 0 - 2 11/28 H Specimen Type: URINE No comment entered. Ordering Provider: ÁNGELA [facility] IS[facility]MA[facility] Report Released Date/Time: Nov 24, 2023 05:48 PM Reporting Lab: [facility] [address] [facility] [address] Performing Lab: [facility] [address] [facility] [address] [facility] URINALYS IS W/REFLEX TO CULTURE APPEARANCE OF URINE CLOUDY 11/28 Specimen Type: URINE No comment entered. Ordering Provider: ÁNGELA OSORIO [facility] QUIÑONES Report Released Date/Time: Nov 24, 2023 05:48 PM Reporting Lab: [facility] [address] [facility] [address] Performing Lab: [facility] [address] [facility] [address] [facility] URINALYS IS W/REFLEX TO CULTURE HEMOGLOBIN [PRESENCE] IN URINE LG 11/28 Specimen Type: URINE No comment entered. Ordering Provider: ÁNGELA [facility]ÑONES Report Released Date/Time: Nov 24, 2023 05:48 PM Reporting Lab: [facility] [address] [facility] [address] Performing Lab: [facility] [address] [facility] [address] [facility] URINALYS IS W/REFLEX TO CULTURE NITRITE [PRESENCE] IN URINE BY TEST STRIP NEG 11/28 Specimen Type: URINE No comment entered. Ordering Provider: ÁNGELA [facility] ISHMAEL Report Released Date/Time: Nov 24, 2023 05:48 PM Reporting Lab: [facility] [address] [facility] [address] Performing Lab: [facility] [address] [facility] [address] [facility] URINALYS IS W/REFLEX TO CULTURE LEUKOCYTES [PRESENCE] IN URINE LG 11/28 Specimen Type: URINE No comment entered. Ordering Provider: ÁNGELA [facility] ISHMAEL Report Released Date/Time: Nov 24, 2023 05:48 PM Reporting Lab: [facility] [address] [facility] [address] Performing Lab: [facility] [address] [facility] [address] [facility] URINALYS IS W/REFLEX TO CULTURE MICROSCOPI C-iQ Complete d 11/28 Specimen Type: URINE No comment entered. Ordering Provider: ÁNGELA [facility]IO [facility] Q[facility]ÑONES Report Released Date/Time: Nov 24, 2023 05:48 PM Reporting Lab: [facility] [address] [facility] [address] Performing Lab: [facility] [address] [facility] [address] [facility] URINALYS IS W/REFLEX TO CULTURE LEUKOCYTE CLUMPS [#/AREA] IN URINE SEDIMENT BY AUTOMATED COUNT MANY 11/28 Specimen Type: URINE No comment entered. Ordering Provider: ÁNGELA [facility] ISHMA[facility] Report Released Date/Time: Nov 24, 2023 05:48 PM Reporting Lab: [facility] [address] [facility] [address] Performing Lab: [facility] [address] [facility] [address] [facility] PSA (ARCHITE CT) PROSTATE SPECIFIC AG [MASS/VOLU ME] IN SERUM OR PLASMA 0.13 ng/mL 0 - 4.0 06/16 Specimen Type: SERUM Comment: Tests performed on [employer] (405) [id number] Ordering Provider: KEM HEIN Report Released Date/Time: Dec 09, 2022 08:40 AM Reporting Lab: [facility] [address] [facility] [address] Performing Lab: [facility] [address] [facility] [address] [facility] URINALYS IS W/REFLEX TO CULTURE COLOR OF URINE Dark-Bro wn 04/22 Specimen Type: URINE Comment: ~For Test: URINALYSIS W/REFLEX TO CULTURE ~prior to urologic surgery Ordering Provider: JAEL MORENO Report Released Date/Time: Apr 21, 2023 04:11 PM Reporting Lab: [facility] [address] [facility] [address] Performing Lab: [facility] [address] [facility] [address] [facility] URINALYS IS W/REFLEX TO CULTURE SPECIFIC GRAVITY OF URINE BY REFRACTOME TRY 1.012 1.003 - 1.030 04/22 Specimen Type: URINE Comment: ~For Test: URINALYSIS W/REFLEX TO CULTURE ~prior to urologic surgery Ordering Provider: JAEL MORENO Report Released Date/Time: Apr 21, 2023 04:11 PM Reporting Lab: [facility] [address] [facility] [address] Performing Lab: [facility] [address] [facility] [address] [facility] IS W/REFLEX TO CULTURE UROBILINOG EN [MASS/VOLU ME] IN URINE <2.0mg/d L <2.0 - 2.0 04/22 Specimen Type: URINE Comment: ~For Test: URINALYSIS W/REFLEX TO CULTURE ~prior to urologic surgery Ordering Provider: JAEL MORENO Report Released Date/Time: Apr 21, 2023 04:11 PM Reporting Lab: [facility] [address] [facility] [address] Performing Lab: [facility] [address] [facility] [address] [facility] IS W/REFLEX TO CULTURE BILIRUBIN. TOTAL [PRESENCE] IN URINE BY TEST STRIP NEG 04/22 Specimen Type: URINE Comment: ~For Test: URINALYSIS W/REFLEX TO CULTURE ~prior to urologic surgery Ordering Provider: JAEL MORENO Report Released Date/Time: Apr 21, 2023 04:11 PM Reporting Lab: [facility] [address] [facility] [address] Performing Lab: [facility] [address] [facility] [address] [facility] URINALYS IS W/REFLEX TO CULTURE KETONES [PRESENCE] IN URINE NEGmg/dL 04/22 Specimen Type: URINE Comment: ~For Test: URINALYSIS W/REFLEX TO CULTURE ~prior to urologic surgery Ordering Provider: JAEL MORENO Report Released Date/Time: Apr 21, 2023 04:11 PM Reporting Lab: [facility] [address] [facility] [address] Performing Lab: [facility] [address] [facility] [address] [facility] URINALYS IS W/REFLEX TO CULTURE GLUCOSE [MASS/VOLU ME] IN URINE BY TEST STRIP NEGmg/dL 04/22 Specimen Type: URINE Comment: ~For Test: URINALYSIS W/REFLEX TO CULTURE ~prior to urologic surgery Ordering Provider: JAEL MORENO Report Released Date/Time: Apr 21, 2023 04:11 PM Reporting Lab: [facility] [address] [facility] [address] Performing Lab: [facility] [address] [facility] [address] [facility] URINALYS IS W/REFLEX TO CULTURE PROTEIN [MASS/VOLU ME] IN URINE BY TEST STRIP 200 mg/dL 04/22 Specimen Type: URINE Comment: ~For Test: URINALYSIS W/REFLEX TO CULTURE ~prior to urologic surgery Ordering Provider: JAEL MORENO Report Released Date/Time: Apr 21, 2023 04:11 PM Reporting Lab: [facility] [address] [facility] [address] Performing Lab: [facility] [address] [facility] [address] [facility] IS W/REFLEX TO CULTURE PH OF URINE BY TEST STRIP 6.0 5 - 8 04/22 Specimen Type: URINE Comment: ~For Test: URINALYSIS W/REFLEX TO CULTURE ~prior to urologic surgery Ordering Provider: JAEL MORENO Report Released Date/Time: Apr 21, 2023 04:11 PM Reporting Lab: [facility] [address] [facility] [address] Performing Lab: [facility] [address] [facility] [address] [facility] IS W/REFLEX TO CULTURE LEUKOCYTES [#/AREA] IN URINE SEDIMENT BY MICROSCOPY HIGH POWER FIELD >182/[HP F] 0 - 5 04/22 H Specimen Type: URINE Comment: ~For Test: URINALYSIS W/REFLEX TO CULTURE ~prior to urologic surgery Ordering Provider: JAEL MOREON Report Released Date/Time: Apr 21, 2023 04:11 PM Reporting Lab: [facility] [address] [facility] [address] Performing Lab: [facility] [address] [facility] [address] [facility] URINALYS IS W/REFLEX TO CULTURE BACTERIA [PRESENCE] IN URINE SEDIMENT BY LIGHT MICROSCOPY FEW 08/31 /2023 Specimen Type: URINE Comment: ~For Test: URINALYSIS W/REFLEX TO CULTURE ~prior to urologic surgery Ordering Provider: JAEL MORENO Report Released Date/Time: Apr 21, 2023 04:11 PM Reporting Lab: [facility] [address] [place] [facility] [place] [address] Performing Lab: [facility] [address] [place] [facility] [place] [address] [facility] URINALYS IS W/REFLEX TO CULTURE MUCUS [PRESENCE] IN URINE SEDIMENT BY LIGHT MICROSCOPY MANY 04/22 Specimen Type: URINE Comment: ~For Test: URINALYSIS W/REFLEX TO CULTURE ~prior to urologic surgery Ordering Provider: JAEL MORENO Report Released Date/Time: Apr 21, 2023 04:11 PM Reporting Lab: [facility] [address] [place] [facility] [place] [address] Performing Lab: [facility] [address] [place] [facility] [place] [address] [facility] URINALYS IS W/REFLEX TO CULTURE YEAST [PRESENCE] IN URINE SEDIMENT BY LIGHT MICROSCOPY MANY 04/22 Specimen Type: URINE Comment: ~For Test: URINALYSIS W/REFLEX TO CULTURE ~prior to urologic surgery Ordering Provider: JAEL MORENO Report Released Date/Time: Apr 21, 2023 04:11 PM Reporting Lab: [facility] [address] [place] [facility] [place] [address] Performing Lab: [facility] [address] [place] [facility] [place] [address] [facility] URINALYS IS W/REFLEX TO CULTURE ERYTHROCYT ES [#/AREA] IN URINE SEDIMENT BY MICROSCOPY HIGH POWER FIELD >182/[HP F] 0 - 3 04/22 H Specimen Type: URINE Comment: ~For Test: URINALYSIS W/REFLEX TO CULTURE ~prior to urologic surgery Ordering Provider: JAEL MORENO Report Released Date/Time: Apr 21, 2023 04:11 PM Reporting Lab: [facility] [address] [place] [facility] [place] [address] Performing Lab: [facility] [address] [place] [facility] [place] [address] [facility] URINALYS IS W/REFLEX TO CULTURE APPEARANCE OF URINE TURBID 04/22 Specimen Type: URINE Comment: ~For Test: URINALYSIS W/REFLEX TO CULTURE ~prior to urologic surgery Ordering Provider: JAEL MORENO Report Released Date/Time: Apr 21, 2023 04:11 PM Reporting Lab: [facility] [address] [facility] [address] Performing Lab: [facility] [address] [facility] [address] [facility] URINALYS IS W/REFLEX TO CULTURE HEMOGLOBIN [PRESENCE] IN URINE LG 04/22 Specimen Type: URINE Comment: ~For Test: URINALYSIS W/REFLEX TO CULTURE ~prior to urologic surgery Ordering Provider: JAEL MORENO Report Released Date/Time: Apr 21, 2023 04:11 PM Reporting Lab: [facility] [address] [facility] [address] Performing Lab: [facility] [address] [facility] [address] [facility] URINALYS IS W/REFLEX TO CULTURE NITRITE [PRESENCE] IN URINE BY TEST STRIP NEG 04/22 Specimen Type: URINE Comment: ~For Test: URINALYSIS W/REFLEX TO CULTURE ~prior to urologic surgery Ordering Provider: JAEL MORENO Report Released Date/Time: Apr 21, 2023 04:11 PM Reporting Lab: [facility] [address] [facility] [address] Performing Lab: [facility] [address] [facility] [address] [facility] URINALYS IS W/REFLEX TO CULTURE LEUKOCYTES [PRESENCE] IN URINE LG 04/22 Specimen Type: URINE Comment: ~For Test: URINALYSIS W/REFLEX TO CULTURE ~prior to urologic surgery Ordering Provider: JAEL MORENO Report Released Date/Time: Apr 21, 2023 04:11 PM Reporting Lab: [facility] [address] [facility] [address] Performing Lab: [facility] [address] [facility] [address] [facility] URINALYS IS W/REFLEX TO CULTURE MICROSCOPI C-iQ Complete d 04/22 Specimen Type: URINE Comment: ~For Test: URINALYSIS W/REFLEX TO CULTURE ~prior to urologic surgery Ordering Provider: JAEL MORENO Report Released Date/Time: Apr 21, 2023 04:11 PM Reporting Lab: [facility] [address] [facility] [address] Performing Lab: [facility] [address] [facility] [address] [facility] URINALYS IS W/REFLEX TO CULTURE LEUKOCYTE CLUMPS [#/AREA] IN URINE SEDIMENT BY AUTOMATED COUNT MANY 04/22 Specimen Type: URINE Comment: ~For Test: URINALYSIS W/REFLEX TO CULTURE ~prior to urologic surgery Ordering Provider: JAEL MORENO Report Released Date/Time: Apr 21, 2023 04:11 PM Reporting Lab: [facility] [address] [facility] [address] Performing Lab: [facility] [address] [facility] [address] [facility] URINALYS IS W/REFLEX TO CULTURE COLOR OF URINE Light-Or keshav 02/11 Specimen Type: URINE No comment entered. Ordering Provider: SAAD JOHNSON Report Released Date/Time: Jan 26, 2023 01:36 PM Reporting Lab: [facility] [address] [facility] [address] Performing Lab: [facility] [address] [facility] [address] [facility] URINALYS IS W/REFLEX TO CULTURE SPECIFIC GRAVITY OF URINE BY REFRACTOME TRY 1.011 1.003 - 1.030 02/11 Specimen Type: URINE No comment entered. Ordering Provider: SAAD JOHNSON Report Released Date/Time: Jan 26, 2023 01:36 PM Reporting Lab: [facility] [address] [facility] [address] Performing Lab: [facility] [address] [facility] [address] [facility] URINALYS IS W/REFLEX TO CULTURE UROBILINOG EN [MASS/VOLU ME] IN URINE <2.0mg/d L 02/11 Specimen Type: URINE No comment entered. Ordering Provider: SAAD JOHNSON Report Released Date/Time: Jan 26, 2023 01:36 PM Reporting Lab: [facility] [address] [facility] [address] Performing Lab: [facility] [address] [facility] [address] [facility] URINALYS IS W/REFLEX TO CULTURE BILIRUBIN. TOTAL [PRESENCE] IN URINE BY TEST STRIP NEG 02/11 Specimen Type: URINE No comment entered. Ordering Provider: SAAD JOHNSON Report Released Date/Time: Jan 26, 2023 01:36 PM Reporting Lab: [facility] [address] [facility] [address] Performing Lab: [facility] [address] [facility] [address] [facility] UR[facility]ALYS IS W/REFLEX TO CULTURE KETONES [PRESENCE] IN URINE NEGmg/dL 02/11 Specimen Type: URINE No comment entered. Ordering Provider: SAAD JOHNSON Report Released Date/Time: Jan 26, 2023 01:36 PM Reporting Lab: [facility] [address] [facility] [address] Performing Lab: [facility] [address] [facility] [address] [facility] UR[facility]ALYS IS W/REFLEX TO CULTURE GLUCOSE [MASS/VOLU ME] IN URINE BY TEST STRIP TRACEmg/ dL 02/11 Specimen Type: URINE No comment entered. Ordering Provider: SAAD JOHNSON Report Released Date/Time: Jan 26, 2023 01:36 PM Reporting Lab: [facility] [address] [facility] [address] Performing Lab: [facility] [address] [facility] [address] [facility] URINALYS IS W/REFLEX TO CULTURE PROTEIN [MASS/VOLU ME] IN URINE BY TEST STRIP 100 mg/dL 02/11 Specimen Type: URINE No comment entered. Ordering Provider: SAAD JOHNSON Report Released Date/Time: Jan 26, 2023 01:36 PM Reporting Lab: [facility] [address] [facility] [address] Performing Lab: [facility] [address] [facility] [address] [facility] URINALYS IS W/REFLEX TO CULTURE PH OF URINE BY TEST STRIP 6.5 5 - 8 02/11 Specimen Type: URINE No comment entered. Ordering Provider: SAAD JOHNSON Report Released Date/Time: Jan 26, 2023 01:36 PM Reporting Lab: [facility] [address] [facility] [address] Performing Lab: [facility] [address] [facility] [address] [facility] URINALYS IS W/REFLEX TO CULTURE LEUKOCYTES [#/AREA] IN URINE SEDIMENT BY MICROSCOPY HIGH POWER FIELD >182/[HP F] 0 - 5 02/11 H Specimen Type: URINE No comment entered. Ordering Provider: SAAD JOHNSON Report Released Date/Time: Jan 26, 2023 01:36 PM Reporting Lab: [facility] [address] [facility] [address] Performing Lab: [facility] [address] [facility] [address] [facility] URINALYS IS W/REFLEX TO CULTURE YEAST [PRESENCE] IN URINE SEDIMENT BY LIGHT MICROSCOPY FEW 02/11 Specimen Type: URINE No comment entered. Ordering Provider: SAAD JOHNSON Report Released Date/Time: Jan 26, 2023 01:36 PM Reporting Lab: [facility] [address] [facility] [address] Performing Lab: [facility] [address] [facility] [address] [facility] URINALYS IS W/REFLEX TO CULTURE ERYTHROCYT ES [#/AREA] IN URINE SEDIMENT BY MICROSCOPY HIGH POWER FIELD >182/[HP F] 0 - 3 02/11 H Specimen Type: URINE No comment entered. Ordering Provider: SAAD JOHNSON Report Released Date/Time: Jan 26, 2023 01:36 PM Reporting Lab: [facility] [address] [facility] [address] Performing Lab: [facility] [address] [facility] [address] [facility] URINALYS IS W/REFLEX TO CULTURE APPEARANCE OF URINE TURBID 02/11 Specimen Type: URINE No comment entered. Ordering Provider: SAAD JOHNSON Report Released Date/Time: Jan 26, 2023 01:36 PM Reporting Lab: [facility] [address] [facility] [address] Performing Lab: [facility] [address] [facility] [address] [facility] URINALYS IS W/REFLEX TO CULTURE HEMOGLOBIN [PRESENCE] IN URINE LG 02/11 Specimen Type: URINE No comment entered. Ordering Provider: SAAD JOHNSON Report Released Date/Time: Jan 26, 2023 01:36 PM Reporting Lab: [facility] [address] [facility] [address] Performing Lab: [facility] [address] [facility] [address] [facility] URINALYS IS W/REFLEX TO CULTURE NITRITE [PRESENCE] IN URINE BY TEST STRIP NEG 02/11 Specimen Type: URINE No comment entered. Ordering Provider: SAAD JOHNSON Report Released Date/Time: Jan 26, 2023 01:36 PM Reporting Lab: [facility] [address] [facility] [address] Performing Lab: [facility] [address] [facility] [address] [facility] URINALYS IS W/REFLEX TO CULTURE LEUKOCYTES [PRESENCE] IN URINE LG 02/11 Specimen Type: URINE No comment entered. Ordering Provider: SAAD JOHNSON Report Released Date/Time: Jan 26, 2023 01:36 PM Reporting Lab: [facility] [address] [facility] [address] Performing Lab: [facility] [address] [facility] [address] [facility] URINALYS IS W/REFLEX TO CULTURE MICROSCOPI C-iQ Complete d 02/11 Specimen Type: URINE No comment entered. Ordering Provider: SAAD JOHNSON Report Released Date/Time: Jan 26, 2023 01:36 PM Reporting Lab[facility] [address] [facility] [address] Performing Lab: [facility] [address] [facility] [address] [facility] URINALYS IS W/REFLEX TO CULTURE LEUKOCYTE CLUMPS [#/AREA] IN URINE SEDIMENT BY AUTOMATED COUNT MANY 02/11 Specimen Type: URINE No comment entered. Ordering Provider: SAAD JOHNSON Report Released Date/Time: Jan 26, 2023 01:36 PM Reporting Lab: [facility] [address] [facility] [address] Performing Lab: [facility] [address] [facility] [address] [facility] P4 GLU,BUN, CREAT,LY SELENE,CA UREA NITROGEN [MASS/VOLU ME] IN SERUM OR PLASMA 8 mg/dL 7 - 25 02/11 Specimen Type: PLASMA Comment: Tests performed on [employer] (405) [id number] Ordering Provider: APRYL CHAVEZ Report Released Date/Time: Feb 11, 2023 02:29 PM Reporting Lab: [facility] [address] [facility] [address] Performing Lab: [facility] [address] [facility] [address] [facility] P4 GLU,BUN, CREAT,LY SELENE,CA SODIUM [MOLES/VOL UME] IN SERUM OR PLASMA 141 mmol/L 135 - 145 02/11 Specimen Type: PLASMA Comment: Tests performed on [employer] (405) SN:[id number] Ordering Provider: APRYL CHAVEZ Report Released Date/Time: Feb 11, 2023 02:29 PM Reporting Lab: [facility] [address] [facility] [address] Performing Lab: [facility] [address] [facility] [address] [facility] P4 GLU,BUN, CREAT,LY SELENE,CA POTASSIUM [MOLES/VOL UME] IN SERUM OR PLASMA 3.3 mmol/L 3.5 - 5.0 02/11 L Specimen Type: PLASMA Comment: Tests performed on [employer] (405) SN:[id number] Ordering Provider: APRYL CHAVEZ Report Released Date/Time: Feb 11, 2023 02:29 PM Reporting Lab: [place] [facility] [address] [facility] [address] Performing Lab: [facility] [address] [facility] [address] [facility] P4 GLU,BUN, CREAT,LY SELENE,CA CHLORIDE [MOLES/VOL UME] IN SERUM OR PLASMA 103 mmol/L 100 - 110 02/11 Specimen Type: PLASMA Comment: Tests performed on [employer] (405) SN:[id number] Ordering Provider: APRYL CHAVEZ Report Released Date/Time: Feb 11, 2023 02:29 PM Reporting Lab: [place] [facility] [address] [facility] [address] Performing Lab: [place] [facility] [address] [facility] [address] [facility] P4 GLU,BUN, CREAT,LY ESLENE,CA CARBON DIOXIDE, TOTAL [MOLES/VOL UME] IN SERUM OR PLASMA 29 mmol/L 20 - 30 02/11 Specimen Type: PLASMA Comment: Tests performed on [employer] (405) SN:[id number] Ordering Provider: APRYL CHAVEZ Report Released Date/Time: Feb 11, 2023 02:29 PM Reporting Lab: [place] [facility] [address] [facility] [address] Performing Lab: [place] [facility] [address] [facility] [address] [facility] P4 GLU,BUN, CREAT,LY SELENE,CA ANION GAP IN SERUM OR PLASMA 9 mmol/L 4 - 16 02/11 Specimen Type: PLASMA Comment: Tests performed on [employer] (405) SN:[id number] Ordering Provider: APRYL CHAVEZ Report Released Date/Time: Feb 11, 2023 02:29 PM Reporting Lab: [place] [facility] [address] [facility] [address] Performing Lab: [place] [facility] [address] [facility] [address] [facility] P4 GLU,BUN, CREAT,LY SELENE,CA GLUCOSE [MASS/VOLU ME] IN SERUM OR PLASMA 100 mg/dL 65 - 100 02/11 Specimen Type: PLASMA Comment: Tests performed on [employer] (405) SN:[id number] Ordering Provider: APRYL CHAVEZ Report Released Date/Time: Feb 11, 2023 02:29 PM Reporting Lab: [facility] [address] [facility] [address] Performing Lab: [facility] [address] [facility] [address] [facility] P4 GLU,BUN, CREAT,LY SELENE,CA CREATININE [MASS/VOLU ME] IN SERUM OR PLASMA 0.84 mg/dL 0.5 - 1.5 02/11 Specimen Type: PLASMA Comment: Tests performed on [employer] (405) SN:[id number] Ordering Provider: APRYL CHAVEZ Report Released Date/Time: Feb 11, 2023 02:29 PM Reporting Lab: [facility] [address] [facility] [address] Performing Lab: [facility] [address] [facility] [address] [facility] P4 GLU,BUN, CREAT,LY SELENE,CA CALCIUM [MASS/VOLU ME] IN SERUM OR PLASMA 9.4 mg/dL 8.5 - 10.5 02/11 Specimen Type: PLASMA Comment: Tests performed on [employer] (405) SN:[id number] Ordering Provider: APRYL CHAVEZ Report Released Date/Time: Feb 11, 2023 02:29 PM Reporting Lab: [facility] [address] [facility] [address] Performing Lab: [facility] [address] [facility] [address] [facility] P4 GLU,BUN, CREAT,LY SELENE,CA GLOMERULAR FILTRATION RATE/1.73 SQ M.PREDICTE D [VOLUME RATE/AREA] IN SERUM, PLASMA OR BLOOD BY CREATININE -BASED FORMULA (CKD-EPI 2020) >90.0mL/ min 02/11 Specimen Type: PLASMA Comment: Tests performed on [employer] (405) SN:[id number] Ordering Provider: APRYL CHAVEZ Report Released Date/Time: Feb 11, 2023 02:29 PM Reporting [facility] [address] [facility] [address] Per[facility]: [facility] [address] [facility] [address] [facility] PSA (ARCHITE CT) PROSTATE SPECIFIC AG [MASS/VOLU ME] IN SERUM OR PLASMA 0.14 ng/mL 0 - 4.0 12/08 Specimen Type: SERUM No comment entered. Ordering Provider: KEM HEIN Report Released Date/Time: Jul 14, 2022 07:32 AM Reporting Lab: [facility] [address] [facility] [address] Performing [facility]: [facility] [address] [facility] [address] [facility] GLYCOHEM OGLOBIN (A1C ONLY) HEMOGLOBIN A1C/HEMOGL OBIN.TOTAL [...] Aug 26, 2022 02:09 PM Reporting Lab: [facility] [address] [facility] [address] Performing Lab: [facility] [address] [facility] [address] [facility] Vital Signs Combined list of inpatient and outpatient Vital Signs from Department of Defense and Veterans Affairs, ranging from 12 months to all on record, depending upon the facility. Vital Sign Value Date Comments Source SYSTOLIC BLOOD PRESSURE 107 06/21/2024 12:41:47 [facility] [place] DIASTOLIC BLOOD PRESSURE 69 06/21/2024 12:41:47 [facility] PULSE OXIMETRY 98 06/21/2024 12:41:47 [place] [facility] TEMPERATURE 96.6 06/21/2024 12:41:47 [place] [facility] PULSE 72 06/21/2024 12:41:47 [place] [facility] RESPIRATION 16 06/21/2024 12:41:47 [place] [facility] SYSTOLIC BLOOD PRESSURE 105 06/07/2024 13:19:19 [place] [facility] DIASTOLIC BLOOD PRESSURE 71 06/07/2024 13:19:19 [place] [facility] PULSE OXIMETRY 99 06/07/2024 13:19:19 [place] [facility] TEMPERATURE 97.1 06/07/2024 13:19:19 [place] [facility] PULSE 84 06/07/2024 13:19:19 [place] [facility] RESPIRATION 14 06/07/2024 13:19:19 [place] [facility] WEIGHT 121.7 05/08/2024 14:31:52 [facility] BMI 18kg/m2 05/08/2024 14:31:52 [facility] SYSTOLIC BLOOD PRESSURE 130 05/04/2024 13:44:06 [facility] PAIN 3 04/06/2024 12:44:02 [place] [facility] HEIGHT 69 04/06/2024 12:44:02 [place] [facility] TEMPERATURE 97.7 04/06/2024 12:44:02 [place] [facility] PULSE 80 04/06/2024 12:44:02 [place] [facility] 20 04/06/2024 12:44:02 [place] [facility] Encounters Combined list of: 1) Encounters from Department of Veterans Affairs facilities going back up to thelast 18 months. 2) Encounters from the Department of Defense facilities going back up to 280 months. Location Location Details Encounter Type Encounter Number Reason For Visit Attending Provider ADM Date DC Date Status Disposition Source [facility] PRO PHONE CALL 5-10 MIN 69543-7.40 5. Diagnos is: ICD-10- CM Z01.818 Encount er for other preproc edural examina tion
[place] MACHUCA 01/05 [place] [facility] Outpatient Encounter [id number] Margoth BARKSDALE 01/05 [place] [facility] Outpatient Encounter [id number] 01[facility]06 [facility] PRO PHONE CALL 5-10 MIN [id number] [id number] Diagnos is: ICD-10- CM Z01.818 Encount er for other preproc edural examina tion
WENDY DE LA CRUZ NNMARIAM E 01/06 [place] [facility] PRO PHONE CALL 5-10 MIN [id number] [id number] Diagnos is: ICD-10- CM Z01.818 Encount er for other preproc edural examina tion
Joellen SIERRA 01/06 [place] [facility] Outpatient Encounter [id number] [facility] Outpatient Encounter [id number] 5.01/07 [facility] SPECIAL ANESTHESIA SERVICE [id number] [id number] Diagnos is: ICD-10- CM N20.0 Calculu s of kidney< br/> STEVEN CYR M 01/07 [facility] Outpatient Encounter [id number] [id number] Diagnos is: ICD-10- CM N20.0 Calculu s of kidney< br/> KERFOOT,BR ANCH QUIÑONES 01/07 [facility] CYSTO/URET ERO W/LITHOTRI PSY 44620-5.40 5. MICHEL JOHNSON M 01/07 [facility] SPECIAL ANESTHESIA SERVICE [id number] [id number] Diagnos is: ICD-10- CM N20.0 Calculu s of kidney< br/> BOWDOIN,SH AWN R 01/07 [facility] Outpatient Encounter [id number] 5.01/07 [facility] Outpatient Encounter [id number] 5.01/07 [facility] HC PRO PHONE CALL 5-10 MIN [id number] [id number] Diagnos is: ICD-10- CM Z98.890 Other specifi ed postpro cedural states< br/> SAMANTHA MARTINEZ 01/08 [facility] Outpatient Encounter [id number] [id number] 01/10 [facility] Outpatient Encounter [id number] [id number] 01/12 [facility] Outpatient Encounter [id number] [id number] 01/19 [place] [facility] [place] [facility] Outpatient Encounter [id number] [id number] 01/21 [place] [facility] [place] [facility] Outpatient Encounter [id number] [id number] 01/22 [place] [facility] [place] [facility] Outpatient Encounter [id number] [id number] 01/23 [place] [facility] [place] [facility] Outpatient Encounter [id number] [id number] MYRIAM FLORES CIA 01/24 [place] [facility] [place] [facility] Outpatient Encounter [id number] [id number] 01/25 [place] [facility] [place] [facility] Outpatient Encounter [id number] [id number] 01/26 [place] [facility] [place] [facility] Outpatient Encounter [id number] [id number]/26 [place] [facility] [place] [facility] OFFICE O/P EST MOD 30-39 MIN [id number] [id number] Diagnos is: ICD-10- CM N20.0 Calculu s of kidney< br/> BETTENCOUR T,DELBERT-CL HERNANDEZ 01/26 [place] [facility] [place] [facility] Outpatient Encounter [id number] [id number] 01/31 [place] [facility] [place] [facility] Outpatient Encounter [id number] [id number] [place] [facility] [place] [facility] Outpatient Encounter [id number] [id number] 02/01 [place] [facility] [place] [facility] Outpatient Encounter [id number] [id number] 02/08 [place] [facility] [place] [facility] Outpatient Encounter [id number] [id number] 02/09 [facility] OFFICE O/P EST LOW 20-29 MIN [id number] [id number] Diagnos is: ICD-10- CM Z87.440 Persona l history of urinary (tract) infecti ons<br/ > RHEA CHAVEZ 02/11 [facility] Outpatient Encounter [id number] [id number] BELASHILPA BLAKELYCHRISTO Arora 02/16 [facility] HC PRO PHONE CALL 11-20 MIN [id number] [id number] Diagnos is: ICD-10- CM F32.9 Major depress finn disorde r, single episode , unspeci fied
BELADAMARIS BLAKELY 02/16 [facility] Outpatient Encounter [id number] [id number] 02/17 [facility] OFF/OP EST MAY X REQ PHY/QHP [id number] [id number] Diagnos is: ICD-10- CM Z01.818 Encount er for other preproc edural examina tion
TIANNA CARR 02/18 [facility] Outpatient Encounter [id number] [id number] 02/19 [facility] OFFICE O/P EST HI 40-54 MIN [id number] [id number] Diagnos is: ICD-10- CM F32.9 Major depress finn disorde r, single episode , unspeci fied
MARIO MEDINA S 02/25 [facility] Outpatient Encounter [id number] [id number] Diagnos is: ICD-10- CM N20.0 Calculu s of kidney< br/> PAULETTE MANRIQUEZ 03/01 [facility] PRO PHONE CALL 5-10 MIN [id number] [id number] Diagnos is: ICD-10- CM Z01.818 Encount er for other preproc edural examina tion
BLACKCHUNG N MEYER 03/01 [facility] HC PRO PHONE CALL 5-10 MIN [id number] [id number] Diagnos is: ICD-10- CM Z01.818 Encount er for other preproc edural examina tion
XAVIER LUX BATOOL 03/03 [facility] Outpatient Encounter [id number] [id number] 03/04 [facility] Outpatient Encounter [id number] [id number] 03/04 [facility] OFFICE O/P EST SF 10-19 MIN [id number] [id number] Diagnos is: ICD-10- CM Z01.818 Encount er for other preproc edural examina tion
CORONA PRUITT STOP 03/04 [facility] ANESTH STONE REMOVAL [id number] [id number] Diagnos is: ICD-10- CM N20.0 Calculu s of kidney< br/> CORONA PRUITT STOP 03/04 [facility] Outpatient Encounter [id number] [id number] Diagnos is: ICD-10- CM N20.0 Calculu s of kidney< br/> MICHELLE CUTLER 03/04 [facility] CYSTO/URET ERO W/LITHOTRI PSY [id number] [id number] Husam RAJPUT 03/04 [facility] En[facility] [id number] [id number] [place] PRU[facility] STOP 03/04 [facility] POSTOP FOLLOW-UP VISIT [id number] [id number] Diagnos is: ICD-10- CM Z51.89 Encount er for other specifi ed afterca re
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<b r/> Jeimy GANDHI ILL C 03/29 [facility] [place] [id number] [id number] Diagnos is: ICD-10- CM 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<b r/> Jeimy GANDHI ILL C 03/29 [facility] Outpatient Encounter [id number] [id number] 03/30 [facility] HC PRO PHONE CALL 5-10 MIN [id number] [id number] Diagnos is: ICD-10- CM R68.89 Other general symptom s and signs<b r/> PETTIGLIO, OJ A 04/06 [facility] [place] [facility] Outpatient Encounter [id number] [id number] Diagnos is: ICD-10- CM N20.0 Calculu s of kidney< br/> MICHELLE CUTLER A 04/21 [place] [facility] [place] [facility] OFF/OP EST DECEMBER X REQ PHY/QHP [id number] [id number] Diagnos is: ICD-10- CM Z01.818 Encount er for other preproc edural examina tion
TIANNA CARR A 04/23 [place] [facility] [place] [facility] Outpatient Encounter [id number] [id number] [place] [facility] [place] [facility] Outpatient Encounter [id number] [id number] Diagnos is: ICD-10- CM N20.0 Calculu s of kidney< br/> PAULETTE MANRIQUEZ J 04/23 [place] [facility] [place] [facility] HC PRO PHONE CALL 5-10 MIN [id number] [id number] Diagnos is: ICD-10- CM Z01.818 Encount er for other preproc edural examina tion
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< br/> Joellen OSORIO MD 04/29 [place] [facility] [place] [facility] CYSTO/URET ERO W/LITHOTRI PSY [id number] [id number] Husam RAJPUT 04/29 [facility] Outpatient Encounter [id number] [id number] [place] PRU[facility] STOP 04/29 [facility] OFFICE O/P EST MOD 30-39 MIN [id number] [id number] Diagnos is: ICD-10- CM N20.0 Calculu s of kidney< br/> [facility] 04/29 [facility] SPECIAL ANESTHESIA SERVICE [id number] [id number] Diagnos is: ICD-10- CM 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< br/> [facility] 04/29 [facility] Outpatient Encounter [id number] [id number] Joellen SIERRA 04/29 [facility] POSTOP FOLLOW-UP VISIT [id number] [id number] Diagnos is: ICD-10- CM N20.0 Calculu s of kidney< br/> [facility] 04/29 [facility] Outpatient Encounter [id number] [id number] 04/30 [facility] Outpatient Encounter [id number] [id number] 05/01 [facility] OFFICE O/P EST MOD 30-39 MIN [id number] [id number] Diagnos is: ICD-10- CM I71.40 Abdomin al aortic aneurys m, without rupture , unspeci fied
STONE,WYATT D H 05/06 [facility] Outpatient Encounter [id number] [id number] 05/10 [facility] Outpatient Encounter [id number] [id number] 05/24 [facility] Outpatient Encounter [id number] [id number] 05/26 [facility] Outpatient Encounter [id number] [id number] 06/02 [facility] OFFICE O/P EST HI 40-54 MIN [id number] [id number] Diagnos is: ICD-10- CM N20.0 Calculu s of kidney< br/> KERFOOT,BR ANCH QUIÑONES 06/16 [facility] OFF/OP EST DECEMBER X REQ PHY/QHP [id number] [id number] Diagnos is: ICD-10- CM Z23 Encount er for immuniz ation<b r/> LACLAIR,CH RISTINE M 06/17 [facility] Outpatient Encounter [id number] [id number] 06/22 [facility] Outpatient Encounter [id number] [id number] 06/30 [facility] Outpatient Encounter [id number] [id number]/05 [facility] MED NUTRITION INDIV SUBSEQ [id number] [id number] Diagnos is: ICD-10- CM Z68.1 Body mass index [BMI] 19.9 or less, adult<b r/> Jeimy GANDHI ILL C 07/12 [facility] FAC[facility] FEE [id number] [id number] Diagnos is: ICD-10- CM Z68.1 Body mass index [BMI] 19.9 or less, adult<b r/> Jeimy GANDHI ILL C 07/12 [facility] [place] [facility] Outpatient Encounter [id number] [id number] 07/13 [place] [facility] [place] [facility] Outpatient Encounter [id number] [id number] 07/13 [place] [facility] [place] [facility] Outpatient Encounter [id number] [id number] 08/22 [place] [facility] [place] [facility] Outpatient Encounter [id number] [id number] 08/24 [place] [facility] [place] [facility] Outpatient Encounter [id number] [id number] 08/24 [place] [facility] [place] [facility] Outpatient Encounter [id number] [id number] 08/24 [place] [facility] [place] [facility] Outpatient Encounter [id number] [id number] [facility] 08/25 [place] [facility] [place] [facility] Outpatient Encounter [id number] [id number] 09/06 [place] [facility] OFFICE O/P EST HI 40 MIN [id number] [id number] Diagnos is: ICD-10- CM N20.0 Calculu s of kidney< br/> KERFOOT,JOLIE CARIAS QUIÑONES 09/15 [facility] [place] [facility] Outpatient Encounter [id number] [id number] 10/18 [place] [facility] [place] [facility] Outpatient Encounter [id number] [id number] 10/21 [place] [facility] [place] [facility] Outpatient Encounter [id number] [id number] 11/01 [place] [facility] [place] [facility] OFFICE O/P EST LOW 20 MIN [id number] [id number] Diagnos is: ICD-10- CM I71.40 Abdomin al aortic aneurys m, without rupture , unspeci fied
STONE,WYATT D H 11/03 [facility] Outpatient Encounter [id number] [id number] 11/04 [facility] Out[facility] Encounter [id number] [id number] 11/09 [facility] Outpatient Encounter [id number] [id number] 11/14 [facility] Outpatient Encounter [id number] [id number] 11/22 [facility] Outpatient Encounter [id number] [id number] 11/23 [facility] Outpatient Encounter [id number] [id number] 11/28 [facility] [place] [facility] Outpatient Encounter [id number] 11/30 [facility] Outpatient Encounter [id number] 11/30 [facility] OFF/OP EST DECEMBER X REQ PHY/QHP [id number] Diagnos is: ICD-10- CM Z01.818 Encount er for other preproc edural examina tion
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
CORONA PRUITT 12/14 [facility] HC PRO PHONE CALL 5-10 MIN [id number] Diagnos is: ICD-10- CM Z01.818 Encount er for other preproc edural examina tion
XAVIER LUX BATOOL 12/14 [facility] Outpatient Encounter [id number] 12/15 [facility] Outpatient Encounter [id number] 12/15 [facility] Outpatient Encounter [id number] MELISSA JAVIER 12/15 [facility] Outpatient Encounter [id number] BANAIMA IDT,ALICIA 12/15 [facility] Outpatient Encounter [id number] KERFOOT,BR ANCH QUIÑONES 12/15 [place] [facility] CYSTO/URET ERO W/LITHOTRI PSY [id number] WARREN WEAVERI N E 12/15 [facility] Outpatient Encounter [id number] KARINA VALADEZT,ALICIA 12/15 [facility] OFFICE O/P EST SF 10 MIN [id number] Diagnos is: ICD-10- CM Z01.818 Encount er for other preproc edural examina tion
CONCEPCION,MELISSA 12/15 [place] [facility] POSTOP FOLLOW-UP VISIT [id number] [id number] Diagnos is: ICD-10- CM Z48.89 Encount er for other specifi ed surgica l afterca re
CONCEPCION,MELISSA 12/15 [place] [facility] [place] [facility] Outpatient Encounter [id number] HILARIO RIGGS FELIX L 12/15 [place] [facility] [place] [facility] Outpatient Encounter [id number] [id number] 12/16 [place] [facility] [place] [facility] CYSTOSCOPY [id number] [id number] Diagnos is: ICD-10- CM N20.0 Calculu s of kidney< br/> KERFOOT,BR ANCH QUIÑONES 12/20 [place] [facility] [place] [facility] Outpatient Encounter [id number] 12/20 [place] [facility] [place] [facility] Outpatient Encounter [id number] [id number] DANNY WRIGHT [place] 12/21 [place] [facility] [place] [facility] Outpatient Encounter [id number] [id number] 12/25 [place] [facility] [place] [facility] Outpatient Encounter [id number] [id number] 12/25 [place] [facility] [place] [facility] Outpatient Encounter [id number] [id number] 12/26 [place] [facility] [place] [facility] Outpatient Encounter [id number] [id number] 12/27 [place] [facility] [place] [facility] Outpatient Encounter [id number] [id number] 12/27 [place] [facility] [place] [facility] Outpatient Encounter [id number] [id number] 12/28 [place] [facility] [place] [facility] Outpatient Encounter [id number] [id number] 12/29 [place] [facility] [place] [facility] Outpatient Encounter [id number] [id number] 01/17 [place] [facility] [place] [facility] Outpatient Encounter [id number] [id number] 01/25 [place] [facility] [place] [facility] Outpatient Encounter [id number] [id number] 02/15 [place] [facility] [place] [facility] OFFICE O/P EST HI 40 MIN [id number] [id number] Diagnos is: ICD-10- CM F01.A3 Vascula r dementi a, mild, with mood disturb ance
MARIO MEDINA CA S 02/20 [place] [facility] [place] [facility] Outpatient Encounter [id number] [id number] 02/24 [place] [facility] [place] [facility] Outpatient Encounter [id number] [id number] 02/25 [place] [facility] [place] [facility] Outpatient Encounter [id number] [id number] 02/28 [place] [facility] [place] [facility] Outpatient Encounter [id number] [id number] 02/28 [place] [facility] [place] [facility] Outpatient Encounter [id number] [id number] 03/01 [place] [facility] [place] [facility] Outpatient Encounter [id number] [id number] 03/01 [place] [facility] [place] [facility] Outpatient Encounter [id number] [id number] 03/03 [place] [facility] [place] [facility] Outpatient Encounter [id number] [id number] 03/06 [place] [facility] [place] [facility] Outpatient Encounter [id number] [id number] 03/15 [place] [facility] [place] [facility] Outpatient Encounter [id number] [id number] 03/17 [place] [facility] [place] [facility] Outpatient Encounter [id number] [id number] 03/21 [place] [facility] [place] [facility] Outpatient Encounter [id number] [id number] 03/27 [place] [facility] [place] [facility] Outpatient Encounter [id number] [id number] 04/01 [place] [facility] [place] [facility] Outpatient Encounter [id number] [id number] 04/05 [place] [facility] OFFICE O/P EST MOD 30 MIN 03590-2.68 [id number] Diagnos is: ICD-10- CM 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
KARYN VELASQUEZ NN 04/06 [facility] OFFICE O/P EST MOD 30 MIN [id number] [id number] Diagnos is: ICD-10- CM L89.890 Pressur e ulcer of other site, unstage able
KARYN VELASQUEZ NN 04/06 [facility] [place] [facility] Outpatient Encounter [id number] [id number] 04/07 [place] [facility] [place] [facility] Outpatient Encounter [id number] [id number] 04/07 [place] [facility] [place] [facility] Outpatient Encounter [id number] [id number] 04/08 [place] [facility] [place] [facility] Outpatient Encounter [id number] [id number] 04/08 [place] [facility] Outpatient Encounter [id number] [id number] 04/10 [facility] [place] [facility] Outpatient Encounter [id number] [id number] 04/10 [place] [facility] [place] [facility] Outpatient Encounter [id number] [id number] 04/10 [place] [facility] TELEHEALTH FACILITY FEE [id number] [id number] Diagnos is: ICD-10- CM L89.43 Pressr ulcer of contig site of back, buttock and hip, stg 3
ADITI GARCIA 04/11 [facility] [place] [facility] APPROPOS MTHD OFFLOADING RXD [id number] [id number] Diagnos is: ICD-10- CM L89.43 Pressr ulcer of contig site of back, buttock and hip, stg 3
Keaton QUINTERO 04/11 [place] [facility] [place] [facility] Outpatient Encounter [id number] [id number] 04/13 [place] [facility] [place] [facility] Outpatient Encounter [id number] [id number] 04/14 [place] [facility] [place] [facility] Outpatient Encounter [id number] [id number] 04/17 [place] [facility] [place] [facility] Outpatient Encounter [id number] [id number] 04/19 [place] [facility] [place] [facility] Outpatient Encounter [id number] [id number] 04/21 [place] [facility] [place] [facility] Outpatient Encounter [id number] [id number] 04/26 [place] [facility] Outpatient Encounter [id number] [id number] 04/27 [facility] Outpatient Encounter [id number] [id number] 05/02 [facility] OFFICE O/P EST HI 40 MIN [id number] [id number] Diagnos is: ICD-10- CM N20.1 Calculu s of ureter< br/> KERFOOT,BR ANCH QUIÑONES 05/03 [facility] Outpatient Encounter [id number] [id number] 05/04 [facility] OFFICE O/P EST MOD 30 MIN [id number] [id number] Diagnos is: ICD-10- CM I71.40 Abdomin al aortic aneurys m, without rupture , unspeci fied
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
ADITI GARCIA 05/16 Jorge A [facility] RY OC [place] [facility] APPROPOS MTHD OFFLOADING RXD [id number] [id number] Diagnos is: ICD-10- CM L89.43 Pressr ulcer of contig site of back, buttock and hip, stg 3
Keaton QUINTERO 05/16 [place] [facility] [place] [facility] Outpatient Encounter [id number] [id number] SAMMIEDAMARIS R 05/17 [place] [facility] [place] [facility] Outpatient Encounter [id number] [id number] 05/17 [place] [facility] [place] [facility] Outpatient Encounter [id number] [id number] 05/19 [place] [facility] [place] [facility] Outpatient Encounter [id number] [id number] 05/23 [place] [facility] [place] [facility] Outpatient Encounter [id number] [id number] 05/24 [place] [facility] [place] [facility] Outpatient Encounter [id number] [id number] 05/26 [place] [facility] [place] [facility] Outpatient Encounter [id number] [id number] 05/26 [place] [facility] [place] [facility] Outpatient Encounter [id number] [id number] 05/28 [place] [facility] [place] [facility] Outpatient Encounter [id number] [id number] 05/29 [place] [facility] [place] [facility] Outpatient Encounter [id number] [id number] 05/31 [place] [facility] [place] [facility] Outpatient Encounter [id number] [id number] 06/03 [place] [facility] [place] [facility] Outpatient Encounter [id number] [id number] 06/07 [facility] IRRIGATION TRAY [id number] [id number] Diagnos is: ICD-10- CM R33.8 Other retenti on of urine<b r/> SALCEDO,CR ISTINA 06/07 [facility] EMERGENCY DEPT VISIT [facility] [id number] [id number] Diagnos is: ICD-10- CM R33.9 Retenti on of urine, unspeci fied
LORI CERNA 06/07 [facility] Outpatient Encounter [id number] [id number] 06/08 [facility] Outpatient Encounter [id number] [id number] 06/12 [facility] Outpatient Encounter [id number] [id number] 06/12 [facility] Outpatient Encounter [id number] [id number] 06/12 [facility] TELEHEALTH FACILITY FEE [id number] [id number] Diagnos is: ICD-10- CM L89.43 Pressr ulcer of contig site of back, buttock and hip, stg 3
ADITI GARCIA 06/13 [facility] FOAM DRG <=16 SQ IN W/BORDER [id number] [id number] Diagnos is: ICD-10- CM L89.43 Pressr ulcer of contig site of back, buttock and hip, stg 3
Keaton QUINTERO C 06/13 [facility] Outpatient Encounter [id number] [id number] 06/14 [facility] CASE MANAGEMENT [id number] [id number] Diagnos is: ICD-10- CM Z02.9 Encount er for adminis trative examina tions, unspeci fied
CARISA AARON R 06/14 [facility] Outpatient Encounter [id number] [id number] 06/16 [facility] Outpatient Encounter [id number] [id number] 06/16 [facility] HC PRO PHONE CALL 5-10 MIN [id number] [id number] Diagnos is: ICD-10- CM Z02.9 Encount er for adminis trative examina tions, unspeci fied
JENA PENA BRIDGER 06/19 [facility] Outpatient Encounter [id number] [id number] 06/19 [facility] Outpatient Encounter [id number] [id number] 06/20 [facility] CASE MANAGEMENT [id number] [id number] Diagnos is: ICD-10- CM Z02.9 Encount er for adminis trative examina tions, unspeci fied
ERINN DE LA CRUZ CE 06/21 [facility] URINARY LEG OR ABDOMEN BAG [id number] [id number] Diagnos is: ICD-10- CM R33.8 Other retenti on of urine<b r/> SALCEDO,CR ISTINA 06/21 [facility] HC PRO PHONE CALL 5-10 MIN [id number] [id number] Diagnos is: ICD-10- CM Z02.9 Encount er for adminis trative examina tions, unspeci fied
JENA PENA TE BRIDGER 06/22 [facility] CASE MANAGEMENT [id number] [id number] Diagnos is: ICD-10- CM Z02.9 Encount er for adminis trative examina tions, unspeci fied
TRUNGBertramMONSTERERINN GAYLE CE 06/26 [facility] Outpatient Encounter [id number] [id number] 06/27 [facility] Outpatient Encounter [id number] [id number] 06/28 [facility] HLTH BHV ASSMT/REAS SESSMENT [id number] [id number] Diagnos is: ICD-10- CM Z02.9 Encount er for adminis trative examina tions, unspeci fied
LIV,PARIS RA 06/30 [facility] Outpatient Encounter [id number] [id number] Diagnos is: ICD-10- CM I71.40 Abdomin al aortic aneurys m, without rupture , unspeci fied
MICUCCI,SA LLY 06/30 [facility] Outpatient Encounter [id number] [id number] 07/04 [facility] Outpatient Encounter [id number] [id number] 07/05 [facility] Outpatient Encounter [id number] [id number] 07/06 [facility] HC PRO PHONE CALL 5-10 MIN [id number] [id number] Diagnos is: ICD-10- CM Z02.9 Encount er for adminis trative examina tions, unspeci fied
LIV,PARIS RA 07/06 [facility] Outpatient Encounter [id number] [id number] 07/07 [facility] Procedures Combined list of: 1) Procedures from Department of Veterans Affairs facilities [facility], not all [place] non-surgical procedures are included; 2) All procedures from the Department of [facility] facilities. Procedure Procedure Type Code Date Perfomer Comments Sourc e BILATERAL URETEROSCOPY LASER LITHOTRIPSY STENT PLACEMENT CYSTO/URETERO W/LITHOTRIPSY 28332 12/16/2023 SHIRA SOTO [facility] BILATERAL URETEROSCOPY, ..., STENT PLACEMENT CYSTO/URETERO W/LITHOTRIPSY 15009 04/29/2023 SHIRA SOTO [facility] BILATERAL URETEROSCOPY AND BILATERAL STENT PLACEMENT CYSTO/URETERO W/LITHOTRIPSY 08097 03/04/2023 CORAL MORENO [facility] Social History Combined list of available smoking, tobacco, and other social history from Department of Defense and Veterans Affairs facilities. Social History Type Response Date Comment Source Tobacco smoking status NHIS CURRENT SMOKER 06/07/2024 [facility] History of tobacco use VA-TOBACCO USER EVERY DAY 02/21/2024 [facility] History of tobacco use VA-TOBACCO USER EVERY DAY 05/14/2022 [facility] History of tobacco use CURRENT SMOKER 07/17/2021 [facility] History of tobacco use VA-VAAES TOBACCO USE CURRENT NRT DECLINE 07/01/2021 [facility] History of tobacco use CURRENT SMOKER 07/01/2021 [facility] History of tobacco use VA-TOBACCO USER EVERY DAY 12/08/2020 [facility] History of tobacco use VA-TOBACCO FORMER USER 12/08/2020 [facility] History of tobacco use VA-TOBACCO FORMER USER 06/27/2020 [facility] History of tobacco use VA-TOBACCO USE MED NO 12/28/2018 [facility] History of tobacco use CURRENT SMOKER 10/29/2017 cigarettes >20pk yrs [facility] History of tobacco use CURRENT SMOKER 08/10/2016 [facility] History of tobacco use CURRENT SMOKER 04/04/2015 Less than a pack a day [facility] Plan of Care List of future care activities from Department of [facility] Affairs facilities. Additional future care activities may be listed in the Assessment and Plan section. Date/Time Care Activity Care Activity Detail Facili ty 07/11/2024 AMBULATORY - SURGERY AMBULATORY - SURGERY [facility] 07/11/2024 AMBULATORY - SURGERY AMBULATORY - SURGERY [facility] 07/24/2024 AMBULATORY - SURGERY AMBULATORY - SURGERY [facility] 07/27/2024 AMBULATORY - NONE AMBULATORY - NONE [facility] 08/29/2024 AMBULATORY - NONE AMBULATORY - NONE [facility] 08/29/2024 AMBULATORY - SURGERY AMBULATORY - SURGERY [facility] 10/23/2024 AMBULATORY - MEDICINE AMBULATORY - MEDICI NE [facility] 10/23/2024 AMBULATORY - NONE AMBULATORY - NONE [facility] 06/28/2024 Consult Order PALLIATIVE CARE OUTPATIENT Cons Data Communications Analyst's [facility] 07/06/2024 Consult Order CSP PCAFC HOME-C ARE ASSESSMENT OUTPT Cons Data Communications Analyst's [facility] 07/07/2024 Consult Order OCCUPATIONAL THE RAPY OUTPATIENT Cons Data Communications Analyst's [facility] Advance Directives List of completed, amended, or rescinded Advance Directives on record at Department of [facility] Affairs facilities. An actual copy of the Directive is not included. Date Advance Directive Provider Source 11/18/2017 ADVANCE DIRECTIVE RADHA FERNANDEZ [facility] 07/08/2017 ADVANCE DIRECTIVE DISCUSSION PURNIMA ROJAS [facility]
--- OUTSIDE RECORDS SUMMARY | 2024-07-07 22:17 | XMS_ITS | Encounter Summary ---
Author Name [facility] [place] [facility] [place] Address [address] [place] [address] Care Team Providers Care Director Bioinformatics Name Role Phone KYRA VELASQUEZ Primary Care [...] ADVANTAGE MCR(W NR) * Aug 23, 2023 [id number] [phone] ANNALISA LOYD ITE PATIENT [facility] (WNR) MEDICARE ADVANTAGE [facility] (WNR) Aug 23, 2020 [id number] [phone] ANNALISA LOYD ITE PATIENT [facility] (WNR) MEDICARE [facility](W NR) Aug 23, 2012 [id number] [phone] ANNALISA LOYD ITE PATIENT Selected Encounter This section includes the information on record at [place] for the Encounter. Date/Time Encounter Type Encounter Description Reason Provider Source Jul 12, 2023 01:01 PM TELEHEALTH FACILITY FEE NUTRITION/DIETETIC S-INDIVIDUAL ICD-10-CM Z68.1 Body mass index [BMI] 19.9 or less, adult PURNIMA GANDHI Jannette Encounter Template Text not used by [place] Assessments - Encounter Diagnoses This section includes the primary and secondary diagnoses documented for the Encounter. Date/Time Primary/Secondary Diagnosis Diagnosis Name Provider Source Jul 13, 2023 09:21 AM PRIMARY Body mass index [BMI] 19.9 or less, adult MAMTA VILLARREAL [facility] Plan of Treatment: Future [...] - SURGERY [place] [facility] Oct 18, 2023 08:00 AM AMBULATORY - NONE [place] Nov 04, 2023 09:00 AM AMBULATORY - SURGERY [facility] Nov 04, 2023 09:30 AM AMBULATORY - SURGERY [facility] [facility] Nov 29, 2023 11:30 AM AMBULATORY - NONE [facility] Dec 10, 2023 02:00 PM AMBULATORY - SURGERY [facility] Dec 13, 2023 02:30 PM AMBULATORY - MEDICINE [facility] Dec 13, 2023 02:31 PM AMBULATORY - NONE [place] Dec 16, 2023 08:00 AM AMBULATORY - SURGERY [facility] Dec 21, 2023 01:30 PM AMBULATORY - SURGERY [facility] Lab Results: +/- 30 days of the [...] 01:20 PM [facility] PSA (ARBITRATOR) Specimen Type: SERUM Comment: Tests performed on [place] Beaming Inspector (405) [id number] Ordering Provider: THERON HEIN Report Released Date/Time: Dec 09, 2022 08:40 AM Reporting Lab: [facility] [address] [id number] [facility] [address] [id number] PSA (ARBITRATOR) 0.13 ng/mL 0-4.0 Vital Signs: All taken on the encounter date This section contains inpatient and outpatient Vital Signs collected on the date of the Encounter. Date/Time Temperature Pulse Blood Pressure Respiratory Rate SP02 Pain Height Weight Body Mass Index Source Jul 12, 2023 01:05 PM 125 lb 18 [facility] Social History: Smoking Status [...] May 14, 2022 09:30 AM VA-TOBACCO USE [place] HOME DEMONSTRATOR NO [facility] May 14, 2022 [...] December 28, 2018 11:23 AM VA-TOBACCO USE [place] HOME DEMONSTRATOR NO [facility] December 28, 2018 11:23 AM VA-TOBACCO USE MED NO [facility] December 28, 2018 11:23 AM VA-TOBACCO USE WI 30 MIN OF WAKE UP [facility] December 28, 2018 11:23 AM VA-TOBACCO USER EVERY DAY [facility] Aug 10, 2016 09:05 AM CURRENT [...] Nov 18, 2017 ADVANCE DIRECTIVE RADHA FERNANDEZ [facility] Jul 08, 2017 ADVANCE DIRECTIVE DISCUSSION [...] UNLISTED COPIES FO R OUTSIDE REFERRAL: EVERTGALINA [id number] -[id number] M Exm Date: AUG 04, 2023@12:45 Req Phys: TODD SANTAMARIA Loc: [facility] RAD MISC XRAY B1RC (Req'g Img Loc: XRAY (OOS) Service: Unknown (Case [id number] COMPLETE) UNLISTED COPIES FOR OUTSIDE REFER(RAD Detailed) CPT:89887 Reason for Study: UNLISTED COPIES FOR OUTSIDE REFERRAL Clinical History: UNLISTED COPIES FOR OUTSIDE REFERRAL. REQUESTED BY SAAD JOHNSON [id number], [id number], [id number]. PICKED UP BY SAAD 08/04/23 Report Status: Electronically Filed Date Reported: Report: Copies (CD) made for outside facility. Impression: Copies (CD) made for outside facility Primary Diagnostic Code: VERIFIED BY: / *ELECTRONICALLY FILED* [facility] Encounter Notes: All associated encounter notes This section contains the clinical notes associated to the Encounter. Date/Time Encounter Note(s) Provider Source Jul 12, 2023 01:06 PM TELEHEALTH NOTE: LOCAL TITLE: Telehealth Computer Forensics Analyst Note STANDARD TITLE: TELEHEALTH NOTE DATE OF [...] always have the option to drive to [place] to see the provider in person. They [...] through an in-person visit at the nearest [place] clinical site offering the requested service, and the patient's right of refusal, at any time, for any Telehealth. Emergency contact information was obtained as follows: Current Location: [facility] Current Address: [address] [place], [place] [id number] County: [place] Emergency Contact Name: Mamta Villarreal Emergency Relationship: TCT Emergency Number: [phone] /es/ MAMTA VILLARREAL Health Computer Forensics Analyst Signed: 07/12/2023 13:07 MAMTA VILLARREAL [facility]
--- OUTSIDE RECORDS SUMMARY | 2024-07-07 22:18 | XMS_ITS | Encounter Summary ---
Author Name [facility] [place] Address [address] [place] [address] Care Team Providers Care Swing Type Lathe Operator Name Role Phone RONKYRA Primary Care Provider Unavailabl e Insurance Providers: [...] ADVANTAGE MCR(W NR) * Aug 23, 2023 [id number] ANNALISA LOYD ITE PATIENT [facility] (WNR) MEDICARE ADVANTAGE [facility] (WNR) Aug 23, 2020 [id number] [phone] ANNALISA LOYD ITE PATIENT [facility] (WNR) MEDICARE ADVANTAGE [facility](W NR) Aug 23, 2012 [id number] [phone] ANNALISA LOYD PATIENT Selected Encounter This section includes the information on record at [place] for the Encounter. Date/Time Encounter Type Encounter Description Reason Provider Source Sep 15, 2023 01:00 PM OFFICE O/P EST HI 40 [facility]OLOGY CL[facility] ICD-10-CM N20.0 Calculus of kidney CORBY OSORIO IHE Encounter Template Text not used by [place] Assessments - Encounter Diagnoses This section includes the primary and secondary diagnoses documented for the Encounter. Date/Time Primary/Secondary Diagnosis Diagnosis Name Provider Source Sep 15, 2023 01:40 PM PRIMARY Calculus of kidney CORBY OSORIO [facility] Plan of Treatment: Future Appointments (+ 6 months) and Future Tests (+/- 45 days) The Plan of Treatment section includes future care activities for the patient from all [place] treatment[facility] healthities. This section includes future appointments and [...] AMBULATORY - NONE [place] [facility] Nov 04, 2023 09:00 AM AM[place] [facility] Nov 04, 2023 09:30 AM [place] [facility] Nov 29, 2023 11:30 AM AMBULATORY - NONE [facility] Dec 10, 2023 02:00 PM [place] [facility] Dec 13, 2023 02:30 PM AMBULATORY - MEDICINE [facility] Dec 13, 2023 02:31 PM AMBULATORY - NONE [place] [facility] Dec 16, 2023 08:00 AM [place] [facility] Dec 21, 2023 01:30 PM [place] [facility] Feb 21, 2024 10:15 AM AM[place]ULATORY - NONE [place] [facility] Feb 21, 2024 11:00 AM AMBULATORY - NONE [place] [facility] Social History: Smoking Status (Most [...] 2022 09:30 AM VA-TOBACCO USER EVERY DAY [facility] Tobacco Use History This section includes a history of the smoking, or tobacco-related health factors, that were collected on or before the date of the Encounter. The data comes from the [place] facility where the Encounter took place. Date/Time Smoking Status/Tobacco Use Comment F acility May 14, 2022 09:30 AM VA-TOBACCO USE ADVICE [facility] May 14, 2022 09:30 AM VA-TOBACCO USE CUPROUS CHLORIDE HELPER NO [facility] May 14, 2022 09:30 AM VA-TOBACCO USE MED NO [facility] May 14, 2022 09:30 AM VA-TOBACCO USE WI 30 [address] OF WA[address] UP [facility] May 14, 2022 09:30 AM VA-TOBACCO USER EVERY DAY [facility] Jun 27, 2020 09:30 AM VA-TOBACCO FORMER USER [facility] Jun 27, 2020 09:30 AM VA-TOBACCO QUIT < [address] [facility] December 28, 2018 11:23 AM VA-TOBACCO USE [address] [facility] December 28, 2018 11:23 AM VA-TOBACCO USE ADVICE 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 December 28, 2018 11:23 AM VA-TOBACCO USE MED NO [facility] December 28, 2018 11:23 AM VA-TOBACCO USE [place] [address] [facility] December 28, 2018 11:23 AM VA-TOBACCO USER EVERY DAY [facility] Aug 10, 2016 09:[address] [facility] Aug 10, 2016 09:05 AM V1-PT [...] Nov 18, 2017 ADVANCE DIRECTIVE RADHA FERNANDEZ [facility] Jul 08, 2017 ADVANCE DIRECTIVE DISCUSSION PURNIMA ROJAS Jannette SONYA [facility] Radiology Reports: +/- 30 days [...] COPIES FO R OUTSIDE REFERRAL: GALINA LOYD [id number] -1945 M Exm Date: SEP 10, 2023@15:25 Req Phys: TODD SANTAMARIA Loc: [facility] RAD MISC XRAY B1RC (Req'g Img Loc: XRAY (OOS) Service: Unknown (Case [id number] COMPLETE) UNLISTED COPIES FOR OUTSIDE REFER(RAD Detailed) CPT:73842 Reason for Study: UNLISTED COPIES FOR OUTSIDE REFERRAL Clinical History: UNLISTED COPIES FOR OUTSIDE REFERRAL. REQUESTED BY [facility]. ALL ABD/PEL IMAGES FROM 2022. 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), nephrolithiasis, LUTS/increased [...] UTIs. ---- Bosniak 2F (?) cyst - .2018 CT scan w contrast Stable simple fluid attenuating cyst in the interpolar region of the left kidney containing thin calcifications. - .2020 renal US: 3.7 cm complex septated cyst [...] Injury due to chemical exposure (SNOMED CT [id number]) PSH: 04/29/2023 BILATERAL URETEROSCOPY, ..., STENT (COMPLETED) [...] LOWER CHOLESTEROL 2) DRESS,MEPILEX BORDER FLEX 4X4IN #556331 APPLY ONE ACTIVE DRESSING TOPICALLY TWO TIMES PER WEEK APPLY DIRECTED 3) DRESSING,HONEY TOP GEL APPLY SMALL AMOUNT TOPICALLY ACTIVE TWO TIMES PER WEEK 4) DRESSING,MEPILEX BORDR 8.7X9.8IN #[id number] APPLY ONE ACTIVE DRESSING TOPICALLY DIRECTED 5) [...] ecchymosis Genitourinary -- no CVAT LABS: PSA (NET DEVELOPER PROGRAMMER) 06/16/23 13:20 0.13 ++ raquel ++ 12/08/22 [...] right PCNL on Oct 21 [address] [facility] [address] French (2) Bosniak 2F cyst - no signif change from [phone]. Bosniak 2F status was determine via US [...] if this lesion changes over time. 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 (4) LUTS on flomax 0.8mg - continue flomax RTC in 6mo Total time spent today in record review, visit, orders & chartin min /vivian/ Pb OSORIO MD Staff Surgeon, Urology Signed: 09/15/2023 13:40 CORBY OSORIO [facility]
--- OUTSIDE RECORDS SUMMARY | 2024-07-07 22:18 | XMS_ITS | Encounter Summary ---
Author Name [facility] [place] Address [address] [place] [address] Care Team Providers Care Styrene Dehydration Reactor Operator Name Role Phone KYRA VELASQUEZ Primary [...] Ervin's Name Patient's Relationship to Policy Ervin [facility] (WNR) MEDICARE [facility](W NR) * Aug 23, 2023 [id number] ANNALISA LOYD ITE PATIENT [facility] (WNR) MEDICARE ADVANTAGE [facility] (WNR) Aug 23, 2020 [id number] [phone] ANNALISA LOYD ITE PATIENT [facility] (WNR) MEDICARE [facility](W NR) Aug 23, 2012 [id number] ANNALISA LOYD ITE PATIENT Selected Encounter This section includes the information on record at [place] for the Encounter. Date/Time Encounter Type Encounter Description Reason Provider Source Aug 25, 2023 12:46 PM Outpatient Encounter TELEPHONE TRIAGE CHINMAY DALTON IHE Encounter Template Text not used by [place] Plan of Treatment: Future Appointments (+ 6 months) and Future Tests (+/- 45 days) The Plan of Treatment section includes future care activities for the patient from all [place] [facility]. This section includes future appointments and future orders which are active, pending or scheduled. Future Appointments This section includes appointments that were scheduled to occur 6 months from the date of the Encounter, up to a maximum of 20 appointments. The data comes from all [place] treatment facilities. Appointment Date/Time Appointment Type Appointme nt Facility Name Sep 15, 2023 01:00 PM AM[facility]ORY [place] [facility] Oct 18, 2023 08:00 AM AMBULATORY - NONE [place] [facility] Nov 04, 2023 09:00 AM [facility] [place] [facility] Nov 04, 2023 09:30 AM [facility] [place] [facility] Nov 29, 2023 11:30 AM AMBULATORY - NONE [facility] Dec 10, 2023 02:00 PM [facility] [place] [facility] Dec 13, 2023 02:30 PM AMBULATORY - MEDICINE [facility] Dec 13, 2023 02:31 PM [facility] - NONE [place] [facility] Dec 16, 2023 08:00 AM [facility] [place] [facility] Dec 21, 2023 01:30 PM [facility] - [place] [facility] Feb 21, 2024 10:15 AM [facility] - NONE [place] [facility] Feb 21, 2024 11:00 AM [place]ORY - NONE [place] [facility] Social History: Smoking Status (Most current) and Tobacco Use (All prior to encounter date) This section includes the most current, and the historical, smoking and tobacco- related health factors from the [place] facility where the Encounter took place. Current Smoking Status This section includes the most current smoking, or tobacco-related health factor, from the [place] facility where the Encounter took place. Date/Time Current Smoking Status Melissa schaeffer Jul 17, 2021 02:27 PM CURRENT SMOKER WH[place] E NALINI [facility] Tobacco Use History This section includes a history of the smoking, or tobacco-related health factors, that were collected on or before the date of the Encounter. The data comes from the [place] facility where the Encounter took place. Date/Time Smoking Status/Tobacco Use Comment F acility Jul 01, 2021 08:55 PM VA-VAAES TOBACCO U SE CURRENT NRT DECLINE [facility] Jul 01, 2021 02:41 PM CURRENT SMOKER REINIER GAYLE [facility] Dec 08, 2020 08:45 PM VA-TOBACCO USER EVERY DAY [facility] Dec 08, 2020 08:45 PM VA-VAAES TOBACCO U SE CURRENT NRT DECLINE SONYA [facility] Dec 08, 2020 [...] ALL of a patient's completed or amended [place] Advance and Rescinded Directives. The entries below indicate that a directive exists for the patient, but an actual copy is not included with this document. The data comes from all [place] facilities. Date Advance Directives Provider Source Nov 18, 2017 ADVANCE DIRECTIVE RADHA FERNANDEZ [facility] Jul 08, 2017 ADVANCE DIRECTIVE DISCUSSION PURINMA ROJAS [facility] Radiology [...] the Encounter. The data comes from all [place] treatment facilities. Date/Time Radiology Report Provider Source Sep 10, 2023 03:25 PM UNLISTED COPIES FO R OUTSIDE REFERRAL: GALINA LOYD [id number] -1945 M Exm Date: SEP 10, 2023@15:25 Req Phys: TODD SANTAMARIA Pat Loc: [facility] RAD MISC XRAY B1RC (Req'g Img Loc: XRAY (OOS) Service: Unknown (Case [id number] COMPLETE) UNLISTED COPIES FOR OUTSIDE REFER(RAD Detailed) CPT:79304 Reason for Study: UNLISTED COPIES FOR OUTSIDE REFERRAL Clinical History: UNLISTED COPIES FOR OUTSIDE REFERRAL. REQUESTED BY [facility]. ALL ABD/PEL IMAGES FROM 2022. SENT BY [facility] TO [facility] TRACKING #[id number] [phone] Report Status: Electronically Filed Date Reported: Report: Copies (CD) made for outside facility. Impression: Copies (CD) made for outside facility Primary Diagnostic Code: VERIFIED BY: / *ELECTRONICALLY FILED* S[facility] Aug 04, 2023 12:45 PM UNLISTED COPIES FO R OUTSIDE REFERRAL: GALINA LOYD [id number] -1945 M Exm Date: AUG 04, 2023@12:45 Req Phys: TODD SANTAMARIA Pat Loc: [facility] RAD MISC XRAY B1RC (Req'g Img Loc: XRAY (OOS) Service: Unknown (Case [id number] COMPLETE) UNLISTED COPIES FOR OUTSIDE REFER(RAD Detailed) CPT:56560 Reason for Study: UNLISTED COPIES FOR OUTSIDE REFERRAL Clinical History: UNLISTED COPIES FOR OUTSIDE REFERRAL. REQUESTED BY [facility] JOHNSON [id number], [id number], [id number]. PICKED UP BY SAAD 08/04/23 Report Status: Electronically Filed Date Reported: Report: Copies (CD) made for outside facility. Impression: Copies (CD) made for outside facility Primary Diagnostic Code: VERIFIED BY: / *ELECTRONICALLY FILED* SONYA [facility] Encounter Notes: All associated encounter notes This section contains the clinical notes associated to the Encounter. Date/Time Encounter Note(s) Provider Source Aug 25, 2023 12:46 PM RN PROGRESS NOTE: LOCAL TITLE: CCC: CLINICAL TRIAGE STANDARD TITLE: RN PROGRESS NOTE DATE OF NOTE: AUG 25, 2023@12:46:51 ENTRY DATE: AUG 25, 2023@12:46:51 AUTHOR: CHINMAY DALTONIGNER: URGENCY: STATUS: COMPLETED CCC: CLINICAL TRIAGE Has ADDENDA Patient Demographics Patient Name: GALINA LOYD Patient Primary Address: [address] [place] [id number] Patient Primary Phone: [phone] Patient : 1945 Patient Age: 77 Current Location: home Call Back Number: verified Caller/Recipient Relation to Patient: Self Emergency Contact: MARIE LOYD Triage Summary Conducted triage/discussed symptoms Pain Score: 1 Utilized the Triage Tool: Yes Chief Complaint: Bedsore System WHEN: Within 24 Hours Nurse's Recommendation / WHEN: Within 24 Hours System WHERE: Clinic Nurse's Recommendation / WHERE: Clinic/[facility] Patient Disposition Patient/Caregiver agrees to plan of care: No Patient WHERE: Refused Patient WHEN: Other Other - Patient When Disposition: Rangel was diagnosed with Covid-19 on leydi and is not done isolation/recovery yet Nursing Plan and Disposition Other course(s) of action Generated msg to PACT/Provider Nurse Summary Nurse Summary: [place] is calling to state that he needs to be issued supplies for a bedsore again. has had them in the past and they were able to heal them with supplies given. Caller states he has about a days worth of supplies left. He needs specifically some silicone adhesive with border pads, 7 x7 inch pads, 5 x 5 inch pads. and med honey. 's states that a pea sized sore has opening up to [place]'s tailbone which is tiny and red but has no drainage and is minimally painful. [place] has had no fever x 5 days. However, Rangel was diagnosed with Covid-19 on [place] leydi and has a history of lymphoma and prostate ca. Encouraged him to move [place] side to side with pillows to avoid pressure on coccyx which he agreed to do. Says has been in bed more since having Covid-19. Discussed [facility] recommendation to be seen within 24 hours however Rangel is not yet completed with his Covid-19 isolation so could not be seen in clinic. PACT team: Please call back to advise if supplies could be sent overnight to for above bedsore as he has Covid-19 and cannot be seen in clinic. states they have been able to heal bedsores in the past but he only has supplies for one more day of dressing change. Please advise. Clinical Contact Center Codes Clinic/Location: V1 [facility] PHONE CCC RN TXCC Triage Complete Triage Note: Phone Triage 25 Aug 2023 17:34:27 +0000 [facility] Demographics 77 y/o Male Results CC: Bedsore [...] GIL RN Signed: 08/26/2023 09:14 CHINMAY DALTON [facility]
--- OUTSIDE RECORDS SUMMARY | 2024-07-07 22:18 | XMS_ITS | Encounter Summary ---
Author Name Department [place] Organization [place] Address [address] [place] [address] Care Team Providers Care Baggage Porter Name Role Phone KYRA VELASQUEZ Primary Care [...] Ervin's Name Patient's Relationship to Policy Ervin [facility] (WNR) MEDICARE ADVANTAGE MCR(W NR) * Aug 23, 2023 [id number] ANNALISA LOYD ITE PATIENT [facility] (WNR) MEDICARE ADVANTAGE [facility] (WNR) Aug 23, 2020 [id number] [phone] ANNALISA LOYD ITE PATIENT [facility] (WNR) MEDICARE [facility](W NR) Aug 23, 2012 [id number] ANNALISA LOYD ITE PATIENT Selected Encounter [...] activities for the patient from all [place] [facility]. This section includes future appointments and [...] 29, 2023 11:30 AM AMBULATORY - NONE [facility] Dec 10, 2023 02:00 PM AMBULATORY [place] [facility] Dec 13, 2023 02:30 PM AMBULATORY - MEDICINE [facility] Dec 13, 2023 02:31 PM AMBULATORY - NONE [place] [facility] Dec 16, 2023 08:00 AM AMBULATORY - [place]GERY [place] [facility] Dec 21, 2023 01:30 PM AMBULATORY - [place]GERY [place] [facility] Feb 21, 2024 10:15 AM AMBULATORY - NONE [place] [facility] Feb 21, 2024 11:00 AM AMBULATORY - NONE [place] [facility] Mar 18, 2024 12:01 AM AMBULATORY - NONE [place] [facility] Apr 06, 2024 01:00 PM AMBULATORY - NONE [place] [facility] Apr 06, 2024 01:00 PM AMBULATORY [...] 12:30 PM AMBULATORY - NONE SONYA LAI [facility] Lab Results: +/- 30 days of [...] Range Comment Nov 29, 2023 11:27 AM [facility] URINALYSIS W/REFLEX TO CULTURE Specimen Type: URINE No comment entered. Ordering Provider: MIRIAN OSORIO CH Report Released Date/Time: Nov 24, 2023 05:48 PM Reporting Lab: SONYA GAYLE [facility] [address] [facility] [address] Performing Lab: TRIMBLE NALINI [facility] [address] [facility] [address] URINE COLOR Light[place] NOT DEFINED SPECIFIC GRAVITY 1.013 1.003-1.030 UROBILINOGEN [...] PM CURRENT SMOKER REINIER GAYLE [facility] Tobacco Use History This section includes [...] PM CURRENT SMOKER REINIER GAYLE [facility] Dec 08, 2020 08:45 PM VA-TOBACCO [...] 11:15 AM UROGRAM RETROGRADE : GALINA LOYD [id number] -1945 M Exm Date: DEC 16, 2023@11:15 Req Phys: CORBY OSORIO QUIÑONES Pat Loc: [facility] SD [facility]N GENERAL G2RD (Req'g Img Loc: XRAY (OOS) Service: [place] [address] (Case [id number] COMPLETE) UROGRAM RETROGRADE (RAD Detailed) CPT:99112 Contrast Media : Non-ionic Iodinated Proc Modifiers : OPERATING ROOM EXAM Reason for Study: bilat ureteroscopy laser litho, stent placement Clinical History: calculus of kidney Report Status: Verified Date Reported: DEC 16, 2023 Date Verified: DEC 16, 2023 Miah E-Sig:/ES/BENJAMÍN PIMENTEL Report: UROGRAM RETROGRADE 12/16/2023 11:15 AM Impression: Fluoroscopy performed during urology service procedure. FINDINGS: Procedure performed with the C-arm fluoroscopy . Fluoroscopy time 55 seconds, dose 9 mGy Fluoroscopic images consistent with history of bilateral ureteroscopy and stent placement. Labels from bilateral [employer] Contour double-J ureteral stents placed on the scanned worksheet Please see procedure note for further details. HISTORY: bilat ureteroscopy laser litho, stent placement, Primary Diagnostic Code: NO IMMEDIATE ATTENTION REQUIRED Primary Interpreting Staff: BENJAMÍN PIMENTEL, Staff Physician (Miah) /BENJAMÍN HYLTON [facility] Pathology Reports: +/- 30 days of [...] AM LR MICROBIOLOGY RE PORT: Reporting Lab: [facility] [CLIA# [id number]] [address] [place] [address] Accession [UID]: [id number] [[id number]] Received: Nov 30, 2023@19:53 Collection sample: URINE CLEAN CATCH Collection date: Nov 29, 2023 11:27 Site/Specimen: URINE Provider: CORBY OSORIO Test(s) ordered: CULTURE,URINE CLEAN CATCH..... completed: Dec 02, 2023 13:00 * BACTERIOLOGY FINAL REPORT => Dec 02, 2023 13:01 TECH CODE: [id number] Bacteriology Remark(s): 12/02/23 50,000-99,000 CFU/mL AT LEAST THREE BACTERIAL TYPES PRESENT INDICATING POSSIBLE CONTAMINATION, PLEASE REPEAT COLLECTION. =--=--=--=--=--=--=--=--=--=--= --=--=--=--=--=--=--=--=--=--=- -=--=--=--=--=-- Performing Laboratory: Bacteriology Report Performed By: SONYA PINON [facility] [CLIA# [id number]] [address] [place] [address] [facility] Encounter Notes: All associated encounter notes [...] outlined in Sep 15, 2023, urology note.] Community Health care consult was placed on Apr 22, 2023. 05/24/23: [place] [facility] [place] : bilateral URS [place] [facility] with Tria stent, plan for R PCNL [...] this could absolutely be done at the [place]. He has a 6 variable length stent on the right and a 8fr 26cm Left Tria stent, with likely little [stone left on the] right and at least a 1 cm stone on left from my recollection. Givent that OCC consult has and the only remaining procedure that is needed is completion bilateral URS, I agree that we can do this at the [facility]. Dr. Osorio: Could you please reach out to the [place] and get him back on our OR schedule at the [place] for completion bilateral URS? MAYA Boyce: could you please obtain postop CT scan from [facility] (likely dated 10/22/23) for upload onto our PACS? Thanks! /vivian/ RAMAKRISHNA AU Chief Engineer'S Helper, Urology Signed: 11/23/2023 12:44 Receipt Acknowledged By: 11/23/2023 13:28 /vivian/ Rosina TOBAR, MAYA 11/24/2023 17:53 /huber OSORIO MD Staff Surgeon, Urology 11/23/2023 ADDENDUM STATUS: COMPLETED Request for CT scan results from [facility] sent 11/23/23. /vivian/ Rosina TOBAR, MAYA Signed: 11/23/2023 13:44 11/24/2023 ADDENDUM STATUS: COMPLETED I spoke with the patient's who confirmed that they wanted to schedule the bilateral ureteroscopy. We agreed on December 15. He will get a UA UCx at [facility] next week. Orders and OR consult placed. /vivian/ Pb OSORIO MD Staff Surgeon, Urology Signed: 11/24/2023 17:54 [...] Site Code MICROSCOPIC-iQ Completed [405] URINE COLOR Light[place] CLARITY CLOUDY Ref: NOT DEFINED [405] SPECIFIC [...] => Dec 02, 2023 13:01 TECH CODE: [id number] Bacteriology Remark(s): 12/02/23 50,000-99,000 CFU/mL AT LEAST THREE BACTERIAL TYPES PRESENT INDICATING POSSIBLE CONTAMINATION, PLEASE REPEAT COLLECTION. /vivian/ Pb OSORIO MD Staff Surgeon, Urology Signed: 12/02/2023 15:21 RAMAKRISHNA AU [facility]
--- OUTSIDE RECORDS SUMMARY | 2024-07-07 22:18 | XMS_ITS ---
Author Name [facility] [place] Address [address] [place] [address] Care Team Providers Care Steel Finisher Name Role Phone KYRA VELASQUEZ Primary Care [...] Ervin's Name Patient's Relationship to Policy Ervin [facility] (WNR) MEDICARE [facility](W NR) * Aug 23, 2023 [id number] ANNALISA LOYD ITE PATIENT [facility] (WNR) MEDICARE ADVANTAGE [facility] (WNR) Aug 23, 2020 [id number] [phone] ANNALISA LOYD ITE PATIENT [facility] (WNR) MEDICARE ADVANTAGE [facility](W NR) Aug 23, 2012 [id number] ANNALISA LOYD ITJannette PATIENT Selected Encounter This section includes the information on record at [place] for the Encounter. Date/Time Encounter Type Encounter Description Reason Pro vider Source Nov 05, 2023 11:45 AM Outpatient Encounter ADMIN PAT ACTIVTIES (MASNONCT) IHE Encounter Template Text not used by [place] Plan of Treatment: Future Appointments (+ 6 [...] PM AMBULATORY [place] [facility] Dec 13, 2023 02:30 PM AMBULATORY - MEDICINE [facility] Dec 13, 2023 02:31 PM [place] [facility] Dec 16, 2023 08:00 AM [place]BUL[place]ORY [place] [facility] Dec 21, 2023 01:30 PM AMBULATORY - [place] [facility] Feb 21, 2024 10:15 AM [place]UL[place]ORY - NONE [place] [facility] Feb 21, 2024 11:00 AM AMBULATORY - NONE [place] [facility] Mar 18, 2024 12:01 AM [place]ATORY - NONE [place] [facility] Apr 06, 2024 01:00 PM AM[place]ULATORY - [place]ONE [place] [facility] Apr 06, 2024 01:00 PM AMBULATORY - MEDICINE [facility] Apr 10, 2024 01:30 PM AMBULATORY - MEDICINE [facility] Apr 10, 2024 01:31 PM [place]ORY [place]ONE [place] [facility] Apr 11, 2024 10:00 AM AMBULATORY - SURGERY [facility] Apr 11, 2024 10:01 AM AMBULATORY - [place] [facility] Apr 21, 2024 10:30 AM AMBULATORY - NONE [place] [facility] May 03, 2024 02:30 PM AMBULATORY [place] [facility] May 04, 2024 10:30 AM [place] [facility] May 04, 2024 11:00 AM [place] [facility] May 04, 2024 12:30 PM AMBULATORY - NONE [place] [facility] Lab Results: +/- 30 days of [...] Range Comment Nov 29, 2023 11:27 AM [facility] URINALYSIS W/REFLEX TO CULTURE Specimen Type: URINE No comment entered. Ordering Provider: MIRIAN OSORIO CH Report Released Date/Time: Nov 24, 2023 05:48 PM Reporting Lab: [facility] [address] [facility] [address] Performing Lab: [facility] [address] [facility] [address] URINE COLOR Light-[place] NOT DEFINED SPECIFIC GRAVITY 1.013 1.003-1.030 UROBILINOGEN [...] Date/Time Current Smoking Status Comment Nataly schaeffer Jul 17, 2021 02:27 PM CURRENT SMOKER REINIER GAYLE [facility] Tobacco Use History This section includes a history of the smoking, or tobacco-related health factors, that were collected on or before the date of the Encounter. The data comes from the [place] facility where the Encounter took place. Date/Time Smoking Status/Tobacco Use Comment F aryanility Jul 01, 2021 08:55 PM VA-VAAES TOBACCO U SE CURRENT NRT DECLINE [facility] Jul 01, 2021 02:41 PM CURRENT SMOKER REINIER GAYLE [facility] Dec 08, 2020 08:45 [...] & PELVIS WI THOUT CONTRAST: GALINA LOYD [id number] -1945 M Exm Date: OCT 22, 2023@04:45 Req Phys: TODD SANTAMARIA Pat Loc: OUTSIDE [facility] CT SCAN (Req'g Loc Img Loc: OUTSIDE [facility] CT SCAN Service: Unknown (Case [id number] COMPLETE) CT ABD & PELVIS WITHOUT CONTRAST (CT Detailed) CPT:89794 Reason for Study: Exam imported from outside Clinical History: Original Data for Imported Study Patient Name: GALINA LOYD Date: 1945 Sex: M Study Date: 10/22/23 Study Time: 04:45:59 Study Description: CT ABDOMEN AND PELVIS WO CONTRAST Referring Physician: JONN GUSTAFSON JR Series 1: 1 CT file, description: Biological Chemist LAT Series 2: 1 CT file, description: Biological Chemist AP Series 3: 1 CT file, description: Patient Protocol Series 4: 156 CT files, description: STD WO F_0.6 Series 5: 778 CT files, description: STD THN WO F_0.6 Series 6: 88 CT files, description: COR 3 WO F_0.6 Series 7: 115 CT files, description: SAG 3 WO F_0.6 Series 8: 2 ID files, description: [id number] Series 9: 1 KO file, description: [id number] Report Status: Electronically Filed Date Reported: NOV 26, 2023 Report: RADIOLOGY PROCEDURE: N O T I C E: SCANNED IN EXAM THIS EXAMINATION WAS PERFORMED AND INTERPRETED AT A NON-[place] FACILITY. To view the Images or report (if a report was included with the images), select the Veam VideoS Tools Menu and choose the Image Display (Viewer) option. Impression: RADIOLOGY PROCEDURE: N O T I C E: SCANNED IN EXAM THIS EXAMINATION WAS PERFORMED AND INTERPRETED AT A NON-[place] FACILITY. To view the Images or report (if a report was included with the images), select the CPRS Tools Menu and choose the Image Display (Viewer) option. VERIFIED BY: / *ELECTRONICALLY FILED* [facility] Pathology Reports: +/- 30 days [...] comes from all [place] treatment facilities. Date/Time Pathology Report Provider Source Nov 29, 2023 11:27 AM LR MICROBIOLOGY RE PORT: Reporting Lab: [facility] [CLIA# [id number]] [address] [place] [address] Accession [UID]: [id number] [[id number]] Received: Nov 30, 2023@19:53 Collection sample: URINE CLEAN CATCH Collection date: Nov 29, 2023 11:27 Site/Specimen: URINE Provider: CORBY OSORIO Test(s) ordered: CULTURE,URINE CLEAN CATCH..... completed: Dec 02, 2023 13:00 * BACTERIOLOGY FINAL REPORT => Dec 02, 2023 13:01 TECH CODE: [id number] Bacteriology Remark(s): 12/02/23 50,000-99,000 CFU/mL AT LEAST THREE BACTERIAL TYPES PRESENT INDICATING POSSIBLE CONTAMINATION, PLEASE REPEAT COLLECTION. =--=--=--=--=--=--=--=--=--=--= --=--=--=--=--=--=--=--=--=--=- -=--=--=--=--=-- Performing Laboratory: Bacteriology Report Performed By: [facility] [CLIA# [id number]] [address] [place] [address] [facility] Encounter Notes: All associated encounter notes [...] Note Has ADDENDA Reason for call Clinic Name:[facility] Scheduled the pt for 05/04/24. Pt needs a CTA prior and is aware someone will reach out to schedule this. /vivian/ ANNETTE MENDOZA Signed: 11/05/2023 11:46 Receipt Acknowledged By: 11/11/2023 10:07 /vivian/ RIP MENDOZA 11/11/2023 ADDENDUM STATUS: COMPLETED left message for requesting return call to schedule CT To be coordinated w/ VL and VS on 05/04/24 /vivian/ RIP MENDOZA Signed: 11/11/2023 10:20 ANNETTE ZHONG [facility]
--- OUTSIDE RECORDS SUMMARY | 2024-07-07 22:18 | XMS_ITS | Encounter Summary ---
Author Name [facility] [place] Address [address] [place] [address] Care Team Providers Care Medical Insurance Collector Name Role Phone RON KYRA Primary Care [...] Name Patient's Relationship to Policy Ervin [facility] (WNR) MEDICARE [facility](W NR) * Aug 23, 2023 [id number] ANNALISA LOYD ITE PATIENT [facility] (WNR) MEDICARE ADVANTAGE [facility] (WNR) Aug 23, 2020 [id number] [phone] ANNALISA LOYD ITE PATIENT [facility] (WNR) MEDICARE ADVANTAGE [facility](W NR) Aug 23, 2012 [id number] [phone] ANNALISA LOYD PATIENT Selected Encounter This section includes the information on record at [place] for the Encounter. Date/Time Encounter Type Encounter Description Reason Provider Source Nov 04, 2023 09:30 AM OFFICE O/P EST LOW 20 MIN VASCULAR SURGERY ICD-10-CM I71.40 Abdominal aortic aneurysm, without rupture, unspecified STONENATY IHJannette Encounter Template Text not used by [place] Assessments - Encounter Diagnoses This section includes the primary and secondary diagnoses documented for the Encounter. Date/Time Primary/Secondary Diagnosis Diagnosis Name Provider Source Nov 04, 2023 10:07 AM PRIMARY Abdominal aortic aneurysm, without rupture, unspecified STONENATY [facility] Plan of Treatment: Future Appointments (+ 6 months) and Future Tests (+/- 45 days) The Plan of Treatment section includes future care activities for the patient from all [place] treatmentfaquorum healthities. This section includes future appointments and [...] SURGERY [place] [facility] Dec 13, 2023 02:30 PM AMBULATORY - MEDICINE [facility] Dec 13, 2023 02:31 PM AM[place]ULATORY - NONE [place] [facility] Dec 16, 2023 08:00 AM [place] [facility] Dec 21, 2023 01:30 PM [place]BULATORY - [place] [facility] Feb 21, 2024 10:15 AM [place]ULATORY - NONE [place] [facility] Feb 21, 2024 11:00 AM [place]ULATORY - NONE [place] [facility] Mar 18, 2024 12:01 AM AM[place]ULATORY - NONE [place] [facility] Apr 06, 2024 01:00 PM AM[place]ATORY - NONE [place] [facility] Apr 06, 2024 01:00 PM AM[facility]ULATORY [facility]ICINE [facility] Apr 10, 2024 01:30 PM AMBULATORY - MEDICINE [facility] Apr 10, 2024 01:31 PM [place]ORY - [place]ONE [place] [facility] Apr 11, 2024 10:00 AM AMBULATORY - SURGERY [facility] Apr 11, 2024 10:01 AM [facility] [place] [place] [facility] Apr 21, 2024 10:30 AM [place]ORY - NONE [place] [facility] May 03, 2024 02:30 PM AMBULATORY - SURGERY [facility] May 04, 2024 10:30 AM AMBULATORY - MEDICINE REINIER GAYLE [facility] May 04, 2024 11:00 AM AMBULATORY - SURGERY [facility] May 04, 2024 12:30 PM [place]BULATORY - NONE [place] [facility] Lab Results: +/- 30 days of the [...] Range Comment Nov 29, 2023 11:27 AM [facility] URINALYSIS W/REFLEX TO CULTURE Specimen Type: URINE No comment entered. Ordering Provider: MIRIAN OSORIO CH Report Released Date/Time: Nov 24, 2023 05:48 PM Reporting Lab: [facility] [address] [facility] [address] Performing Lab: [facility] [address] [facility] [address] URINE COLOR Light-[place] NOT DEFINED SPECIFIC GRAVITY 1.013 1.003-1.030 UROBILINOGEN [...] AM 96.8 56 105/64 17 98 2 [facility] Social History: Smoking Status (Most [...] 2021 02:27 PM CURRENT SMOKER REINIER Bhatia [facility] Tobacco Use History This [...] 2021 02:41 PM CURRENT SMOKER REINIER Bhatia [facility] Dec 08, 2020 08:45 [...] & PELVIS WI THOUT CONTRAST: GALINA LOYD [id number] -1945 M Exm Date: OCT 22, 2023@04:45 Req Phys: TODD SANTAMARIA Pat Loc: OUTSIDE [facility] CT SCAN (Req'g Loc Img Loc: OUTSIDE [facility] CT SCAN Service: Unknown (Case [id number] COMPLETE) CT ABD & PELVIS WITHOUT CONTRAST (CT Detailed) CPT:69189 Reason for Study: Exam imported from outside Clinical History: Original Data for Imported Study Patient Name: GALINA LOYD Date: 1945 Sex: M Study Date: 10/22/23 Study Time: 04:45:59 Study Description: CT ABDOMEN AND PELVIS WO CONTRAST Referring Physician: JONN GUSTAFSON JR Series 1: 1 CT file, description: Aquarium Tank Attendant LAT Series 2: 1 CT file, description: Aquarium Tank Attendant AP Series 3: 1 CT file, description: Patient Protocol Series 4: 156 CT files, description: STD WO F_0.6 Series 5: 778 CT files, description: STD THN WO F_0.6 Series 6: 88 CT files, description: COR 3 WO F_0.6 Series 7: 115 CT files, description: SAG 3 WO F_0.6 Series 8: 2 [place] files, description: [id number] Series 9: 1 KO file, description: [id number] Report Status: Electronically Filed Date Reported: NOV 26, 2023 Report: RADIOLOGY PROCEDURE: N O T I C E: SCANNED IN EXAM THIS EXAMINATION WAS PERFORMED AND INTERPRETED AT A NON-[place] FACILITY. To view the Images or report (if a report was included with the images), select the CPRS Tools Menu and choose the Image Display (Viewer) option. Impression: RADIOLOGY PROCEDURE: N O T I C E: SCANNED IN EXAM THIS EXAMINATION WAS PERFORMED AND INTERPRETED AT A NON-VA FACILITY. To view the Images or report (if a report was included with the images), select the [employer] Tools Menu and choose the Image Display (Viewer) option. VERIFIED BY: / *ELECTRONICALLY FILED* [facility] Pathology Reports: +/- 30 days [...] MICROBIOLOGY RE PORT: Reporting Lab: [facility] [CLIA# [id number]] [address] [place] [address] Accession [UID]: [id number] [[id number]] Received: Nov 30, 2023@19:53 Collection sample: URINE CLEAN CATCH Collection date: Nov 29, 2023 11:27 Site/Specimen: URINE Provider: CORBY OSORIO Test(s) ordered: CULTURE,URINE CLEAN CATCH..... completed: Dec 02, 2023 13:00 * BACTERIOLOGY FINAL REPORT => Dec 02, 2023 13:01 TECH CODE: [id number] Bacteriology Remark(s): 12/02/23 50,000-99,000 CFU/mL AT LEAST THREE BACTERIAL TYPES PRESENT INDICATING POSSIBLE CONTAMINATION, PLEASE REPEAT COLLECTION. =--=--=--=--=--=--=--=--=--=--= --=--=--=--=--=--=--=--=--=--=- -=--=--=--=--=-- Performing Laboratory: Bacteriology Report Performed By: [facility] [CLIA# [id number]] [address] [place] [facility] [address] [facility] Encounter Notes: All associated encounter [...] Injury due to chemical exposure (SNOMED CT [id number]) P.E. Gen: Thin frail male with tobacco [...] CTA AP for monitoring of his AAA. [id number] Greater than 50% of this session was [...] Gifford MD Signed: 11/04/2023 10:07 JOIE MURRY [facility]
--- OUTSIDE RECORDS SUMMARY | 2024-07-07 22:18 | XMS_ITS ---
Author Name [place] Address [address] [place] [address] Care Team Providers Care Global Project Manager Name Role Phone KYRA VELASQUEZ Primary [...] Ervin's Name Patient's Relationship to Policy Ervin [facility] (WNR) MEDICARE [facility](W NR) * Aug 23, 2023 [id number] ANNALISA LOYD ITE PATIENT [facility] (WNR) MEDICARE ADVANTAGE [facility] (WNR) Aug 23, 2020 [id number] [phone] ANNALISA LOYD ITE PATIENT [facility] (WNR) MEDICARE ADVANTAGE [facility](W NR) Aug 23, 2012 [id number] ANNALISA LOYD ITJannette PATIENT Selected Encounter [...] AM AMBULATORY - [place] [facility] Nov 04, 2023 09:30 AM AMBULATORY - SURGERY [place] [facility] Nov 29, 2023 11:30 AM AMBULATORY - NONE [facility] Dec 10, 2023 02:00 PM AMBULATORY - SURGERY [place] [facility] Dec 13, 2023 02:30 PM AMBULATORY - MEDICINE [facility] Dec 13, 2023 02:31 PM [place]ATORY - [place]ONE [place] [facility] Dec 16, 2023 08:00 AM AMBULATORY - SURGERY [place] [facility] Dec 21, 2023 01:30 PM AMBULATORY - SURGERY [place] [facility] Feb 21, 2024 10:15 AM AMBULATORY - NONE [place] [facility] Feb 21, 2024 11:00 AM AMBULATORY - NONE [place] [facility] Mar 18, 2024 12:01 AM [place]BULATORY - [place]ONE [place] [facility] Apr 06, 2024 01:00 PM AMBULATORY - [place]ONE [place] [facility] Apr 06, 2024 01:00 PM AMBULATORY - MEDICINE [facility] Apr 10, 2024 01:30 PM AMBULATORY - MEDICINE [facility] Apr 10, 2024 01:31 PM [place]ORY - [place]ONE [place] [facility] Apr 11, 2024 10:00 AM AMBULATORY - SURGERY [facility] Apr 11, 2024 10:01 AM AMBULATORY - SURGERY [place] [facility] Apr 21, 2024 10:30 AM [place]ATORY - NONE [place] [facility] May 03, 2024 02:30 PM [place] [facility] May 04, 2024 10:30 AM AMBULATORY - MEDICINE [facility] Lab Results: +/- 30 days [...] PM Reporting Lab: [facility] [address] [facility] [address] Performing Lab: [facility] [address] [facility] [address] URINE COLOR Light-[place] NOT DEFINED SPECIFIC GRAVITY 1.013 1.003-1.030 UROBILINOGEN [...] 02:27 PM CURRENT SMOKER REINIER GAYLE [facility] Tobacco Use History This section includes a [...] 02:41 PM CURRENT SMOKER REINIER GAYLE [facility] Dec 08, 2020 08:45 PM VA-TOBACCO USER [...] & PELVIS WI THOUT CONTRAST: GALINA LOYD [id number] -1945 M Exm Date: OCT 22, 2023@04:45 Req Phys: TODD SANTAMARIA Pat Loc: OUTSIDE [facility] CT SCAN (Req'g Loc Img Loc: OUTSIDE [facility] CT SCAN Service: Unknown (Case 545 COMPLETE) CT ABD & PELVIS WITHOUT CONTRAST (CT Detailed) CPT:55123 Reason for Study: Exam imported from outside Clinical History: Original Data for Imported Study Patient Name: GALINA LOYD Date: 1945 Sex: M Study Date: 10/22/23 Study Time: 04:45:59 Study Description: CT ABDOMEN AND PELVIS WO CONTRAST Referring Physician: JONN GUSTAFSON JR Series 1: 1 CT file, description: Computer Builder LAT Series 2: 1 CT file, description: Computer Builder AP Series 3: 1 CT file, description: Patient Protocol Series 4: 156 CT files, description: STD WO F_0.6 Series 5: 778 CT files, description: STD THN WO F_0.6 Series 6: 88 CT files, description: COR 3 WO F_0.6 Series 7: 115 CT files, description: SAG 3 WO F_0.6 Series 8: 2 [place] files, description: [id number] Series 9: 1 KO file, description: [id number] Report Status: Electronically Filed Date Reported: NOV 26, 2023 Report: RADIOLOGY PROCEDURE: N O T I C E: SCANNED IN EXAM THIS EXAMINATION WAS PERFORMED AND INTERPRETED AT A NON-[place] FACILITY. To view the Images or report (if a report was included with the images), select the [employer] Tools Menu and choose the Image Display (Viewer) option. Impression: RADIOLOGY PROCEDURE: N O T I C E: SCANNED IN EXAM THIS EXAMINATION WAS PERFORMED AND INTERPRETED AT A NON-[place] FACILITY. To view the Images or report (if a report was included with the images), select the CPRS Tools Menu and choose the Image Display (Viewer) option. VERIFIED BY: / *ELECTRONICALLY FILED* [facility] Pathology Reports: +/- 30 days of [...] comes from all [place] treatment facilities. Date/Time Pathology Report Provider Source Nov 29, 2023 11:27 AM LR MICROBIOLOGY RE PORT: Reporting Lab: [facility] [CLIA# [id number]] [address] [place] [address] Accession [UID]: [id number] [[id number]] Received: Nov 30, 2023@19:53 Collection sample: URINE CLEAN CATCH Collection date: Nov 29, 2023 11:27 Site/Specimen: URINE Provider: CORBY OSORIO Test(s) ordered: CULTURE,URINE CLEAN CATCH..... completed: Dec 02, 2023 13:00 * BACTERIOLOGY FINAL REPORT => Dec 02, 2023 13:01 TECH CODE: [id number] Bacteriology Remark(s): 12/02/23 50,000-99,000 CFU/mL AT LEAST THREE BACTERIAL TYPES PRESENT INDICATING POSSIBLE CONTAMINATION, PLEASE REPEAT COLLECTION. =--=--=--=--=--=--=--=--=--=--= --=--=--=--=--=--=--=--=--=--=- -=--=--=--=--=-- Performing Laboratory: Bacteriology Report Performed By: [facility] [CLIA# [id number]] [address] [place] [address] [facility] Encounter Notes: All associated encounter notes This section contains the clinical notes associated to the Encounter. Date/Time Encounter Note(s) Provider Source Nov 02, 2023 08:31 AM ADDENDUM: LOCAL TITLE: Addendum STANDARD TITLE: ADDENDUM DATE OF NOTE: NOV 02, 2023@08:31:59 ENTRY DATE: NOV 02, 2023@08:32 AUTHOR: OJ GIL COSIGNER: URGENCY: STATUS: COMPLETED Vet uses as protective/prevent measure pressure ulcer coccyx area. /es/ OJ GIL RN Signed: 11/02/2023 08:34 Receipt Acknowledged By: 11/02/2023 14:14 /vivian/ KYRA VELASQUEZ M.D === --- Original Document --- 11/02/23 V1 PHARMACY CUSTOMER CARE MEDICATION RENEWAL: Date: Oct Division: [place] Pt referred by Pharmacy Call Center for medication renewal: Non-controlled/maintenanc e medication Medications requested: [id number] DRESS,MEPILEX BORDER FLEX 4X4IN #[id number] Defer to primary care provider To be mailed . Please review and renew if appropriate. *This note was generated by [facility]/[place] Pharm[facility] Customer Care. If you have any questions or need assistance, do not contact this author. Please refer all questions to your local, on-site pharmacy departments. /huber COWAN CPhT Supervisor [place], [place]/Pharmacy Customer Care Signed: 11/02/2023 00:10 Receipt Acknowledged By: 11/02/2023 08:27 /huber VELASQUEZ M.D 11/02/2023 08:30 /huber GIL RN 11/02/2023 ADDENDUM STATUS: COMPLETED please clarify why he uses this - not rxed by primary care previously. /vivian/ KYRA VELASQUEZ M.D Signed: 11/02/2023 08:30 [facility]J [facility] Nov 02, 2023 12:09 AM TELEPHONE ENCOUNTE R NOTE: LOCAL TITLE: V1 PHARMACY CUSTOMER CARE MEDICATION RENEWAL STANDARD TITLE: TELEPHONE ENCOUNTER NOTE DATE OF NOTE: NOV 02, 2023@00:09 ENTRY DATE: NOV 02, 2023@00:10:20 AUTHOR: ALEXANDRO COWAN COSIGNER: URGENCY: STATUS: COMPLETED V1 PHARMACY CUSTOMER CARE MEDICATION RENEWAL Has ADDENDA Date: Oct Division: [place] Pt referred by Pharmacy Call Center for medication renewal: Non-controlled/maintenanc e medication Medications requested: [id number] DRESS,MEPILEX BORDER FLEX 4X4IN #[id number] Defer to primary care provider To be mailed . Please review and renew if appropriate. *This note was generated by [facility]/[place] Pharmacy Customer Care. If you have any questions or need assistance, do not contact this author. Please refer all questions to your local, on-site pharmacy departments. /vivian/ ALEXANDRO COWAN CPhT Supervisor [place] [place]/[facility]arm[facility] Customer Care Signed: 11/02/2023 00:10 Receipt Acknowledged [...] * KYRA VELASQUEZ KATRINA M [place] [facility]
--- OUTSIDE RECORDS SUMMARY | 2024-07-07 22:18 | XMS_ITS | Encounter Summary ---
Author Name [place] Address [address] [place] [address] Care Team Providers Care Carpenter'S Helper Name Role Phone KYRA VELASQUEZ Primary [...] Ervin's Name Patient's Relationship to Policy Ervin [facility] (WNR) MEDICARE ADVANTAGE MCR(W NR) * Aug 23, 2023 [id number] ANNALISA LOYD ITE PATIENT [facility] (WNR) MEDICARE ADVANTAGE [facility] (WNR) Aug 23, 2020 [id number] [phone] ANNALISA LOYD ITE PATIENT [facility] (WNR) MEDICARE [facility](W NR) Aug 23, 2012 [id number] [phone] ANNALISA LOYD ITE PATIENT Selected Encounter [...] 12:30 PM AMBULATORY - NONE [facility] Lab Results: +/- 30 days [...] Range Comment Nov 29, 2023 11:27 AM [facility] URINALYSIS W/REFLEX TO CULTURE Specimen Type: URINE No comment entered. Ordering Provider: MIRIAN OSORIO CH Report Released Date/Time: Nov 24, 2023 05:48 PM Reporting Lab: [facility] [address] [facility] [address] Performing Lab: [place] [facility] [address] [facility] [address] URINE [place] NOT DEFINED SPECIFIC GRAVITY 1.013 1.003-1.030 UROBILINOGEN [...] TOBACCO U SE CURRENT NRT DECLINE [facility] Jul 01, 2021 02:41 PM [...] & PELVIS WI THOUT CONTRAST: GALINA LOYD [id number] -1945 M Exm Date: OCT 22, 2023@04:45 Req Phys: TODD SANTAMARIA Loc: OUTSIDE [facility] CT SCAN (Req'g Loc Img Loc: OUTSIDE [facility] CT SCAN Service: Unknown (Case [id number] COMPLETE) CT ABD & PELVIS WITHOUT CONTRAST (CT Detailed) CPT:68583 Reason for Study: Exam imported from outside Clinical History: Original Data for Imported Study Patient Name: GALINA LOYD Date: 1945 Sex: M Study Date: 10/22/23 Study Time: 04:45:59 Study Description: CT ABDOMEN AND PELVIS WO CONTRAST Referring Physician: JONN GUSTAFSON JR Series 1: 1 CT file, description: Alumni Relations Officer LAT Series 2: 1 CT file, description: Alumni Relations Officer AP Series 3: 1 CT file, description: Patient Protocol Series 4: 156 CT files, description: STD WO F_0.6 Series 5: 778 CT files, description: STD THN WO F_0.6 Series 6: 88 CT files, description: COR 3 WO F_0.6 Series 7: 115 CT files, description: SAG 3 WO F_0.6 Series 8: 2 CO files, description: [id number] Series 9: 1 KO file, description: [id number] Report Status: Electronically Filed Date Reported: NOV 26, 2023 Report: RADIOLOGY PROCEDURE: N O T I C E: SCANNED IN EXAM THIS EXAMINATION WAS PERFORMED AND INTERPRETED AT A NON-[place] FACILITY. To view the Images or report (if a report was included with the images), select the QlustersS Tools Menu and choose the Image Display (Viewer) option. Impression: RADIOLOGY PROCEDURE: N O T I C E: SCANNED IN EXAM THIS EXAMINATION WAS PERFORMED AND INTERPRETED AT A NON-[place] FACILITY. To view the Images or report (if a report was included with the images), select the CPRS Tools Menu and choose the Image Display (Viewer) option. VERIFIED BY: / *ELECTRONICALLY FILED* [facility] Pathology Reports: +/- 30 days [...] Reporting Lab: [facility] [CLIA# [id number]] [address] [place] [address] Accession [UID]: [id number] [[id number]] Received: Nov 30, 2023@19:53 Collection sample: URINE CLEAN CATCH Collection date: Nov 29, 2023 11:27 Site/Specimen: URINE Provider: CORBY OSORIO Test(s) ordered: CULTURE,URINE CLEAN CATCH..... completed: Dec 02, 2023 13:00 * BACTERIOLOGY FINAL REPORT => Dec 02, 2023 13:01 TECH CODE: [id number] Bacteriology Remark(s): 12/02/23 50,000-99,000 CFU/mL AT LEAST THREE BACTERIAL TYPES PRESENT INDICATING POSSIBLE CONTAMINATION, PLEASE REPEAT COLLECTION. =--=--=--=--=--=--=--=--=--=--= --=--=--=--=--=--=--=--=--=--=- -=--=--=--=--=-- Performing Laboratory: Bacteriology Report Performed By: [facility] [CLIA# [id number]] [address] [place] [address] [facility] Encounter Notes: All associated [...] Uro appt and have refaxed RFS to [phone] - Alerting Debbi to keep an eye out for RFS /vivian/ ADRIÁN MANCERA Signed: 11/26/2023 06:59 Receipt Acknowledged By: 11/30/2023 14:59 /huber WARREN BA, RN CNOR Registered Nurse --- Original Document --- 11/10/23 COMMUNITY CARE-CARE COORDINATION PLAN NOTE: Recvd a Vm from [facility] [phone] that has Urology SX scheduled 11/25/23 and auth is . Called back and spoke with Dori and requested to please fax RFAS,([place] Form [id number] ) and Supporting Medical Documentation to . [...] not VIEW this UNSIGNED Addendum. ADRIÁN MANCERA [facility] Nov 10, 2023 10:52 AM NONVA NOTE: LOCAL TITLE: COMMUNITY CARE-CARE COORDINATION PLAN NOTE STANDARD TITLE: NONVA NOTE DATE OF NOTE: NOV 10, 2023@10:52 ENTRY DATE: NOV 10, 2023@10:52:29 AUTHOR: ADRIÁN MANCERA EXP COSIGNER: URGENCY: STATUS: COMPLETED COMMUNITY CARE-CARE COORDINATION PLAN NOTE Has ADDENDA Recvd a Vm from [facility] [phone] that [facility] has Urology SX scheduled 11/25/23 and auth is . Called back and spoke with Dori and requested to please fax RFAS,([place] Form [id number] ) and Supporting Medical Documentation to . /vivian/ ADRIÁN MANCERA Signed: 11/10/2023 10:55 11/25/2023 ADDENDUM STATUS: COMPLETED Recvd a voicemail from [facility] asking the status of RFS - Called back and LVM that I do not see that an RFS has been uploaded. Requested a call back /vivian/ ADRIÁN MANCERA Signed: 11/25/2023 13:48 11/26/2023 ADDENDUM STATUS: COMPLETED Recvd another voicemail from Jeanie that they have rescheduled [facility] Uro appt and have refaxed RFS to [phone] - Alerting Debbi to keep an eye out for RFS /vivian/ ADRIÁN MANCERA Signed: 11/26/2023 06:59 Receipt Acknowledged By: 11/30/2023 14:59 /es/ KALE WARREN BA, RN CNOR Registered Nurse 11/30/2023 ADDENDUM STATUS: COMPLETED Called Dori from [place] at the above-mentioned number. Left message on secure VM to state that we have not yet received the RFS form requesting a Urology authorization for this [facility]. I recommended she either refax to [phone] or send via secure email to my attention. Also provided my direct phone/extension so that she can call me directly to work on this issue on the [facility]'s behalf. /vivian/ KALE WARREN BA, RN CNOR Registered Nurse Signed: 11/30/2023 15:01 ADRIÁN MANCERA [facility]
--- OUTSIDE RECORDS SUMMARY | 2024-07-07 22:18 | XMS_ITS ---
Author Name [place] Address [address] [place] [address] Care Team Providers Care Insulation Professional Name Role Phone KYRA VELASQUEZ Primary Care [...] Patient's Relationship to Policy Ervin [facility] (WNR) MEDICARE ADVANTAGE MCR(W NR) * Aug 23, 2023 [id number] ANNALISA LOYD ITE PATIENT [facility] (WNR) MEDICARE ADVANTAGE [facility] (WNR) Aug 23, 2020 [id number] [phone] ANNALISA LOYD ITE PATIENT [facility] (WNR) MEDICARE [facility](W NR) Aug 23, 2012 [id number] [phone] ANNALISA LOYD ITE PATIENT Selected Encounter [...] activities for the patient from all [place] [facility]. This section includes future appointments and future orders which are active, pending or scheduled. Future Appointments This section includes appointments that were scheduled to occur 6 months from the date of the Encounter, up to a maximum of 20 appointments. The data comes from all [place] treatment facilities. Appointment Date/Time Appointment Type Appointme nt Facility Name Sep 15, 2023 01:00 PM AMBULATORY - [place] [facility] Oct 18, 2023 08:00 AM AMBULATORY - NONE [place] [facility] Nov 04, 2023 09:00 AM AMBULATORY - SURGERY [place] [facility] Nov 04, 2023 09:30 AM AMBULATORY - [place] [facility] Nov 29, 2023 11:30 AM AMBULATORY - NONE [facility] Dec 10, 2023 02:00 PM AMBULATORY - SURGERY [place] [facility] Dec 13, 2023 02:30 PM AMBULATORY - MEDICINE [facility] Dec 13, 2023 02:31 PM AMBULATORY - NONE [place] [facility] Dec 16, 2023 08:00 AM AMBULATORY - SURGERY [facility] [place] [facility] Dec 21, 2023 01:30 PM AMBULATORY - SURGERY [place] [facility] Social History: Smoking Status (Most current) and [...] 02:27 PM CURRENT SMOKER [place] [facility] Tobacco [...] TOBACCO U SE CURRENT NRT DECLINE [facility] Jul 01, 2021 02:41 PM CURRENT SMOKER REINIER [facility] Dec 08, 2020 08:45 PM VA-TOBACCO USER [...] COPIES FO R OUTSIDE REFERRAL: GALINA LOYD [id number] -1945 M Ex Date: SEP 10, 2023@15:25 Req Phys: TODD SANTAMARIA Loc: [facility] RAD MISC XRAY B1RC (Req'g Img Loc: XRAY (OOS) Service: Unknown (Case [id number] COMPLETE) UNLISTED COPIES FOR OUTSIDE REFER(RAD Detailed) CPT:33456 Reason for Study: UNLISTED COPIES FOR OUTSIDE REFERRAL Clinical History: UNLISTED COPIES FOR OUTSIDE REFERRAL. [facility] [facility] ALL ABD/PEL IMAGES FROM 2022. SENT BY UPS TO [facility] TRACKING #[id number] [phone] Report Status: Electronically Filed Date Reported: Report: Copies (CD) made for outside facility. Impression: Copies (CD) made for outside facility Primary Diagnostic Code: VERIFIED BY: / *ELECTRONICALLY FILED* [facility] Aug 04, 2023 12:45 PM UNLISTED COPIES FO R OUTSIDE REFERRAL: GALINA LOYD [id number] -1945 M Exm Date: AUG 04, 2023@12:45 Req Phys: TODD SANTAMARIA Pat Loc: [facility] RAD MISC XRAY B1RC (Req'g Img Loc: XRAY (OOS) Service: Unknown (Case [id number] COMPLETE) UNLISTED COPIES FOR OUTSIDE REFER(RAD Detailed) CPT:27706 Reason for Study: UNLISTED COPIES FOR OUTSIDE REFERRAL Clinical History: UNLISTED COPIES FOR OUTSIDE REFERRAL. REQUESTED BY SAAD JOHNSON [id number], [id number], [id number]. PICKED UP BY SAAD 08/04/23 Report Status: Electronically Filed Date Reported: Report: Copies (CD) made for outside facility. Impression: Copies (CD) made for outside facility Primary Diagnostic Code: VERIFIED BY: / *ELECTRONICALLY FILED* [facility] Encounter Notes: All associated encounter notes This section contains the clinical notes associated to the Encounter. Date/Time Encounter Note(s) Provider Source Aug 22, 2023 11:30 AM NONVA NOTE: LOCAL TITLE: COMMUNITY CARE-RAFAEL SELF PRESENTING CARE COORD PLAN STANDARD TITLE: NONVA NOTE DATE OF NOTE: AUG 22, 2023@11:30 ENTRY DATE: AUG 24, 2023@11:31:07 AUTHOR: PILAR LOCKHART EXP COSIGNER: URGENCY: STATUS: COMPLETED COMMUNITY CARE-RAFAEL SELF PRESENTING CARE COORD PLAN NOTE Has ADDENDA Emergency Notification Intake Date Presenting to the Facility: Jul Method of Contact: Notified from ECR worklist Notification ID: [id number] HSRM Referral #: [facility] Name: Hospital: [facility] Address: City: [facility] State: [place] Zip Code: [address] Phone : [facility] Point of Contact: Name: Phone: Chief complaint: COVID Primary Diagnosis: Disposition Unknown at time of intake note entry PACT aware of ED visit and coordinating next steps. /es/ PILAR TOBAR, RN EMERGENCY RENTAL MANAGER Signed: 08/24/2023 11:33 08/31/2023 ADDENDUM STATUS: COMPLETED Notification ID # [id number] EOC approved under 1703 by the National ER Notification Team [employer] Referral # [id number] /vivian/ ADITI SANCHEZ Signed: 08/31/2023 11:55 PILAR LOCKHART [facility]
--- OUTSIDE RECORDS SUMMARY | 2024-07-07 22:18 | XMS_ITS | Encounter Summary ---
Author Name [place] Address [address] [place] [address] Care Team Providers Care Mouthpiece Maker Name Role Phone KYRA VELASQUEZ Primary [...] Policy Ervin [facility] (WNR) MEDICARE [facility](W NR) * Aug 23, 2023 [id number] ANNALISA CRAWLEY ITE PATIENT [facility] (WNR) MEDICARE ADVANTAGE [facility] (WNR) Aug 23, 2020 [id number] [phone] ANNALISA CRAWLEY ITE PATIENT [facility] (WNR) MEDICARE ADVANTAGE [facility](W NR) Aug 23, 2012 [id number] [phone] ANNALISA CRAWLEY ITJannette PATIENT Selected Encounter This section includes the information on record at [place] for the Encounter. Date/Time Encounter Type Encounter Description Reason Pro vider Source Aug 24, 2023 08:57 AM Outpatient Encounter ADMIN PAT ACTIVTIES (MASNONCT) IHE Encounter Template Text not used by VA Plan of Treatment: Future Appointments (+ 6 months) and Future Tests (+/- 45 days) The Plan of Treatment section includes future care activities for the patient from all [place] treatmentfacilities. This section includes future appointments and future orders which are active, pending or scheduled. Future Appointments This section includes appointments that were scheduled to occur 6 months from the date of the Encounter, up to a maximum of 20 appointments. The data comes from all [place] treatment facilities. Appointment Date/Time Appointment Type Appointme nt Facility Name Sep 15, 2023 01:00 PM AMBULATORY - [facility] [place] [facility] Oct 18, 2023 08:00 AM AMBULATORY - NONE [place] [facility] Nov 04, 2023 09:00 AM [facility] [place] [facility] Nov 04, 2023 09:30 AM [facility] [place] [facility] Nov 29, 2023 11:30 AM AMBULATORY - NONE [facility] Dec 10, 2023 02:00 PM AMBULATORY - SURG[facility] [place] Dec 13, 2023 02:30 PM AMBULATORY - MEDICINE [facility] Dec 13, 2023 02:31 PM AMBULATORY - NONE [place] [facility] Dec 16, 2023 08:00 AM AM[facility] - [facility] [place] [facility] Dec 21, 2023 01:30 PM [facility] [place] [facility] Feb 21, 2024 10:15 AM AMBULATORY - NONE [place] [facility] Feb 21, 2024 11:00 AM AM[facility]ATORY - NONE [place] [facility] Social History: Smoking Status (Most current) and Tobacco Use (All prior to encounter date) This section includes the most current, and the historical, smoking and tobacco- related health factors from the [place] facility where the Encounter took place. Current Smoking Status This section includes the most current smoking, or tobacco-related health factor, from the [place] facility where the Encounter took place. Date/Time Current Smoking Status Melissa schaeffer Jul 17, 2021 02:27 PM CURRENT SMOKER [place] [facility] Tobacco Use History This section includes a history of the smoking, or tobacco-related health factors, that were collected on or before the date of the Encounter. The data comes from the [place] facility where the Encounter took place. Date/Time Smoking Status/Tobacco Use Comment F acility Jul 01, 2021 08:55 PM VA-VAAES TOBACCO U SE CURRENT NRT DECLINE [facility] Jul 01, 2021 02:41 PM CURRENT SMOKER REINIER Bhatia [facility] Dec 08, 2020 08:45 PM VA-TOBACCO [...] ALL of a patient's completed or amended [place] Advance and Rescinded Directives. The entries below indicate that a directive exists for the patient, but an actual copy is not included with this document. The data comes from all [place] facilities. Date Advance Directives Provider Source Nov [...] the Encounter. The data comes from all [place] treatment facilities. Date/Time Radiology Report Provider Source Sep 10, 2023 03:25 PM UNLISTED COPIES FO R OUTSIDE REFERRAL: GALINA CRAWLEY [id number] -1945 M Exm Date: SEP 10, 2023@15:25 Req Phys: TODD SANTAMARIA Pat Loc: [facility] RAD MISC XRAY B1RC (Req'g Img Loc: XRAY (OOS) Service: Unknown (Case [id number] COMPLETE) UNLISTED COPIES FOR OUTSIDE REFER(RAD Detailed) CPT:84388 Reason for Study: UNLISTED COPIES FOR OUTSIDE [...] VERIFIED BY: / *ELECTRONICALLY FILED* SONYA [facility] Aug 04, 2023 12:45 PM UNLISTED COPIES FO R OUTSIDE REFERRAL: GALINA CRAWLEY [id number] -1945 M Exm Date: AUG 04, 2023@12:45 Req Phys: TODD SANTAMARIA Pat Loc: [facility] XRAY B1RC (Req'g Img Loc: XRAY (OOS) Service: Unknown (Case [id number] COMPLETE) UNLISTED COPIES FOR OUTSIDE REFER(RAD Detailed) CPT:46826 Reason for Study: UNLISTED COPIES FOR OUTSIDE REFERRAL Clinical History: UNLISTED COPIES FOR OUTSIDE REFERRAL. REQUESTED BY SAAD JOHNSON [id number], [id number], [id number]. PICKED UP BY SAAD 08/04/23 Report Status: Electronically Filed Date Reported: Report: Copies (CD) made for outside facility. Impression: Copies (CD) made for outside facility Primary Diagnostic Code: VERIFIED BY: / *ELECTRONICALLY FILED* SONYA [facility] Encounter Notes: All associated encounter notes This section contains the clinical notes associated to the Encounter. Date/Time Encounter Note(s) Provider Source Aug 24, 2023 08:58 AM ADMINISTRATIVE NOT E: LOCAL TITLE: CCC: SCHEDULING ADMINISTRATION STANDARD TITLE: ADMINISTRATIVE NOTE DATE OF NOTE: AUG 24, 2023@08:58:03 ENTRY DATE: AUG 24, 2023@08:58:03 AUTHOR: MAYA VELASCO EXP COSIGNER: URGENCY: STATUS: COMPLETED Patient Demographics Patient Name: GALINA CRAWLEY Patient Primary Phone: [phone] Patient Primary [address] [address] [place] [id number] Patient : 1945 Patient Age: 77 Caller/Recipient Relation to Patient: Other If Other Describe Relation to Patient: spouse Caller Name: mrs crawley Administrative Administrative Note Reason: Outside Care Performed Administrative Note Comments: called to say they will get the paxlovid thru their local hosp and local pharmacy. No need for VA to assist. /vivian/ MAYA VELASCO VISN 1 CCC AMSA Signed: 08/24/2023 08:58 Receipt Acknowledged By: 08/24/2023 08:59 /es/ JENIFER SHANE ELECTRONIC INDUCTION HARDENER 08/24/2023 16:46 /vivian/ MAY[facility]GRE [facility]
--- OUTSIDE RECORDS SUMMARY | 2024-07-07 22:18 | XMS_ITS ---
Author Name [place] Organization [place] Address [address] [place] [address] Care Team Providers Care Mail Room Name Role Phone KYRA VELASQUEZ Primary Care [...] Name Patient's Relationship to Policy Ervin [facility] (WNR) MEDICARE ADVANTAGE MCR(W NR) * Aug 23, 2023 [id number] ANNALISA LOYD ITE PATIENT [facility] (WNR) MEDICARE ADVANTAGE [facility] (WNR) Aug 23, 2020 [id number] [phone] ANNALISA LOYD ITE PATIENT [facility] (WNR) MEDICARE [facility](W NR) Aug 23, 2012 [id number] ANNALISA LOYD ITE PATIENT Selected Encounter [...] activities for the patient from all [place] [facility]. This section includes future appointments and future [...] PM [facility] [place] [facility] Oct 18, 2023 08:00 AM AMBULATORY - NONE [place] [facility] Nov 04, 2023 09:00 AM [facility] [place] [facility] Nov 04, 2023 09:30 AM [facility] [place] [facility] Nov 29, 2023 11:30 AM AMBULATORY - NONE [facility] Dec 10, 2023 02:00 PM [facility] - [facility] [place] [facility] Dec 13, 2023 02:30 PM AMBULATORY - MEDICINE [facility] Dec 13, 2023 02:31 PM AM[facility]ATORY - NONE [place] [facility] Dec 16, 2023 08:00 AM [facility] - [place] [facility] Dec 21, 2023 01:30 PM [facility]ORY - [place] [facility] Feb 21, 2024 10:15 AM AM[facility]ULATORY - NONE [place] [facility] Feb 21, 2024 11:00 AM AM[facility]ULATORY - NONE [place] [facility] Social History: Smoking Status (Most current) [...] 02:27 PM CURRENT SMOKER WHIT E NALINI [facility] Tobacco Use History This section includes [...] PM CURRENT SMOKER REINIER GAYLE [facility] Dec 08, 2020 08:45 PM VA-TOBACCO USER EVERY DAY [facility] Dec 08, 2020 08:45 PM VA-VAAES TOBACCO U SE CURRENT NRT DECLINE SONYA [facility] Dec 08, 2020 06:58 [...] COPIES FO R OUTSIDE REFERRAL: GALINA LOYD [id number] -1945 M Exm Date: SEP 10, 2023@15:25 Req Phys: TODD SANTAMARIA Pat Loc: [facility] RAD MISC XRAY B1RC (Req'g Img Loc: XRAY (OOS) Service: Unknown (Case [id number] COMPLETE) UNLISTED COPIES FOR OUTSIDE REFER(RAD Detailed) CPT:88936 Reason for Study: UNLISTED COPIES FOR OUTSIDE REFERRAL Clinical History: UNLISTED COPIES FOR OUTSIDE REFERRAL. REQUESTED BY [facility]. ALL ABD/PEL IMAGES FROM 2022. SENT BY UPS TO [facility] TRACKING #[id number] [phone] Report Status: Electronically Filed Date Reported: Report: Copies (CD) made for outside facility. Impression: Copies (CD) made for outside facility Primary Diagnostic Code: VERIFIED BY: / *ELECTRONICALLY FILED* SONYA [facility] Aug 04, 2023 12:45 PM UNLISTED COPIES FO R OUTSIDE REFERRAL: GALINA LOYD [id number] -1945 M Exm Date: AUG 04, 2023@12:45 Req Phys: TODD SANTAMARIA Pat Loc: [facility] RAD MISC XRAY B1RC (Req'g Img Loc: XRAY (OOS) Service: Unknown (Case [id number] COMPLETE) UNLISTED COPIES FOR OUTSIDE REFER(RAD Detailed) CPT:61346 Reason for Study: UNLISTED COPIES FOR OUTSIDE REFERRAL Clinical History: UNLISTED COPIES FOR OUTSIDE REFERRAL. REQUESTED BY SAAD JOHNSON [id number], [id number], [id number]. PICKED UP BY SAAD 08/04/23 Report Status: Electronically Filed Date Reported: Report: Copies (CD) made for outside facility. Impression: Copies (CD) made for outside facility Primary Diagnostic Code: VERIFIED BY: / *ELECTRONICALLY FILED* SONYA GAYLE [facility] Encounter Notes: All associated encounter notes [...] EVENT PROCEDURE: Emergency Room Note TREATING FACILITY: [facility] Discharge Plan Disposition Patient Disposition: Home Condition: Stable Discharge Details Clinical Impression: COVID, Fever ED Provider: Alfredo Moore Home Meds and New Rx's Prescriptions: New Paxlovid [...] COVID-19 (Coronavirus Disease 2019) (ED) Additional Instructions: [facility] is open 10am-3pm tomorrow so you can [...] this month for a kidney stone at [facility] who comes in after he states his felt he has had an intermittent fever since Jennifer. He is caox4 and answers questions appropriately [...] Const General: no acute distress Orientation: alert HENNH Head: normal to inspection Ears: external ears [...] AND AUTHORIZED BY DOCUMENT (S) SENT TO [employer] TO BE SCANNED. TO VIEW THIS DOCUMENT, OPEN CPRS TOOLS MENU AND THEN OPEN THE IMAGE DISPLAY VIEWER. /vivian/ JENIFER SHANE LPN Signed: 08/24/2023 12:08 Receipt Acknowledged By: 08/24/2023 16:20 /vivian/ KYRA VELASQUEZ M.D 08/24/2023 16:48 /vivian/ OJ [...] able to call in a prescription to [facility] in [place]. Home care instructions and return precautions given [...] SHANE LPN Signed: 08/26/2023 09:30 JENIFER SHANE [facility]
--- OUTSIDE RECORDS SUMMARY | 2024-07-07 22:18 | XMS_ITS | Encounter Summary ---
Author Name [place] Organization [place] Address [address] [place] [address] Care Team Providers Care Spine Nurse Name Role Phone KYRA VELASQUEZ Primary Care [...] Policy Ervin [facility] (WNR) MEDICARE [facility](W NR) * Aug 23, 2023 [id number] ANNALISA LOYD ITE PATIENT [facility] (WNR) MEDICARE ADVANTAGE [facility] (WNR) Aug 23, 2020 [id number] [phone] ANNALISA LOYD ITE PATIENT [facility] (WNR) MEDICARE ADVANTAGE [facility](W NR) Aug 23, 2012 [id number] ANNALISA LOYD ITE PATIENT Selected Encounter [...] activities for the patient from all [place] [facility]. This section includes future appointments and future [...] PM AMBULATORY [place] [facility] Oct 18, 2023 08:00 AM AMBULATORY - NONE [place] [facility] Nov 04, 2023 09:00 AM [place]UL[place]ORY [place] [facility] Nov 04, 2023 09:30 AM AM[place]ULATORY [place] [facility] Nov 29, 2023 11:30 AM AMBULATORY - NONE [facility] Dec 10, 2023 02:00 PM AM[place]ULATORY [place] [facility] Dec 13, 2023 02:30 PM AMBULATORY - MEDICINE [facility] Dec 13, 2023 02:31 PM AMBULATORY - NONE [place] [facility] Dec 16, 2023 08:00 AM AMBULATORY [place] [facility] Dec 21, 2023 01:30 PM AMBULATORY [place] [facility] Feb 21, 2024 10:15 AM AMBULATORY - NONE [place] [facility] Feb 21, 2024 11:00 AM AMBULATORY - NONE [place] [facility] Social History: Smoking Status (Most [...] 02:27 PM CURRENT SMOKER WHIT E NALINI [facility] Tobacco Use History This section [...] COPIES FO R OUTSIDE REFERRAL: GALINA LOYD [id number] -1945 M Exm Date: SEP 10, 2023@15:25 Req Phys: TODD SANTAMARIA Pat Loc: [facility] RAD MISC XRAY B1RC (Req'g Img Loc: XRAY (OOS) Service: Unknown (Case [id number] COMPLETE) UNLISTED COPIES FOR OUTSIDE REFER(RAD Detailed) CPT:71402 Reason for Study: UNLISTED COPIES FOR OUTSIDE REFERRAL Clinical History: UNLISTED COPIES FOR OUTSIDE REFERRAL. [place] [facility] ALL ABD/PEL IMAGES FROM 2022. SENT BY UPS TO [facility] TRACK[place] #[id number] [phone] Report Status: Electronically Filed Date Reported: Report: Copies (CD) made for outside facility. Impression: Copies (CD) made for outside facility Primary Diagnostic Code: VERIFIED BY: / *ELECTRONICALLY FILED* SONYA PINON [facility] Encounter Notes: All associated encounter notes [...] COMMUNITY CARE-UROLOGY DOS: 09/06/2023 OFFICE VISIT-NEPHROLITHIASIS NOTE [facility] /vivian/ NICOLE CASTELLON [employer] Signed: 09/09/2023 14:18 Receipt Acknowledged By: 09/10/2023 13:42 /vivian/ Pb OSORIO MD Staff Surgeon, Urology NICOLE CASTELLON [facility]
--- OUTSIDE RECORDS SUMMARY | 2024-07-07 22:18 | XMS_ITS | Encounter Summary ---
Author Name Department [place] Organization [place] Address [address] [place] [address] Care Team Providers Care Wheel Setter Name Role Phone KYRA VELASQUEZ Primary Care [...] Policy Ervin [facility] (WNR) MEDICARE [facility](W NR) * Aug 23, 2023 [id number] ANNALISA LOYD ITE PATIENT [facility] (WNR) MEDICARE ADVANTAGE [facility] (WNR) Aug 23, 2020 [id number] [phone] ANNALISA LOYD ITE PATIENT [facility] (WNR) MEDICARE ADVANTAGE [facility](W NR) Aug 23, 2012 [id number] [phone] ANNALISA LOYD ITJannette PATIENT Selected Encounter This section includes the information on record at [place] for the Encounter. Date/Time Encounter Type Encounter Description Reason Pro vider Source Nov 24, 2023 11:11 AM Outpatient Encounter ADMIN PAT ACTIVTIES (MASNONCT) IHE Encounter Template Text not used by [place] Plan of Treatment: Future Appointments (+ 6 [...] [facility] Dec 13, 2023 02:30 PM AMBULATORY - [...] [facility]] May 04, 2024 10:30 AM [place] [facility]3] May 04, 2024 11:00 AM [place] [facility] May 04, 2024 12:30 PM AMBULATORY - NONE [place] [facility] Lab Results: +/- 30 days of [...] Nov 24, 2023 05:48 PM Reporting Lab: [facility] [address] [address] Performing Lab: [facility] [address] [address] URINE COLOR Light[place] NOT DEFINED SPECIFIC GRAVITY 1.013 1.003-1.030 UROBILINOGEN [...] 2021 02:27 PM CURRENT SMOKER REINIER GAYLE [facility] Tobacco Use History This section includes [...] Jul 01, 2021 02:41 PM CURRENT SMOKER REINEIR GAYLE [facility] Dec 08, 2020 08:45 PM VA-TOBACCO [...] 16, 2023 11:15 AM UROGRAM RETROGRADE : EVERTEVELYN SHIELDSE CARISA [id number] -1945 M Exm Date: DEC 16, 2023@11:15 Req Phys: JO,CORBY QUIÑONES Pat Loc: [facility] SD [facility]N GENERAL G2RD (Req'g Img Loc: XRAY (OOS) Service: [place] [facility] [place] [address] (Case [id number] COMPLETE) UROGRAM RETROGRADE (RAD Detailed) CPT:69418 Contrast Media : Non-ionic Iodinated Proc Modifiers : OPERATING ROOM EXAM Reason for Study: bilat ureteroscopy laser litho, stent placement Clinical History: calculus of kidney Report Status: Verified Date Reported: DEC 16, 2023 Date Verified: DEC 16, 2023 Heel Shaper E-Sig:/VIVIAN/BENJAMÍN PIMENTEL Report: UROGRAM RETROGRADE 12/16/2023 11:15 AM Impression: Fluoroscopy performed during urology service procedure. FINDINGS: Procedure performed with the C-arm fluoroscopy . Fluoroscopy time 55 seconds, dose 9 mGy Fluoroscopic images consistent with history of bilateral ureteroscopy and stent placement. Labels from bilateral Cleanify Contour double-J ureteral stents placed on the scanned worksheet Please see procedure note for further details. HISTORY: bilat ureteroscopy laser litho, stent placement, Primary Diagnostic Code: NO IMMEDIATE ATTENTION REQUIRED Primary Interpreting Staff: BENJAMÍN PIMENTEL, Staff Physician (Miah) /BENJAMÍN HYLTON [facility] Pathology Reports: +/- 30 days of [...] comes from all [place] treatment facilities. Date/Time Pathology Report Provider Source Nov 29, 2023 11:27 AM LR MICROBIOLOGY RE PORT: Reporting Lab: [facility] [CLIA# [id number]] [address] [place] [address] Accession [UID]: [id number] [[id number]] Received: Nov 30, 2023@19:53 Collection sample: URINE CLEAN CATCH Collection date: Nov 29, 2023 11:27 Site/Specimen: URINE Provider: CORBY OSORIO Test(s) ordered: CULTURE,URINE CLEAN CATCH..... completed: Dec 02, 2023 13:00 * BACTERIOLOGY FINAL REPORT => Dec 02, 2023 13:01 TECH CODE: [id number] Bacteriology Remark(s): 12/02/23 50,000-99,000 CFU/mL AT LEAST THREE BACTERIAL TYPES PRESENT INDICATING POSSIBLE CONTAMINATION, PLEASE REPEAT COLLECTION. =--=--=--=--=--=--=--=--=--=--= --=--=--=--=--=--=--=--=--=--=- -=--=--=--=--=-- Performing Laboratory: Bacteriology Report Performed By: SONYA PINON [facility]3] [CLIA# [id number]] [address] [place] [place] [address] [facility] Encounter Notes: All associated [...] kidney stones. pt can be reached at [phone] /vivian/ ANNETTE ZHONG [facility] Signed: 11/24/2023 11:13 Receipt Acknowledged By: 11/24/2023 16:54 /es/ RAMAKRISHNA AU Quarry Supervisor, Urology 11/24/2023 17:55 /es/ Pb OSORIO MD Staff Surgeon, Urology ANNETTE ZHONG [facility]]
--- OUTSIDE RECORDS SUMMARY | 2024-07-07 22:18 | XMS_ITS | Encounter Summary ---
Author Name [place] Organization [place] Address [address] [place] [address] Care Team Providers Care Divider Operator Name Role Phone KYRA VELASQUEZ Primary [...] Policy Ervin [facility] (WNR) MEDICARE ADVANTAGE MCR(W NR) * Aug 23, 2023 [id number] ANNALISA LOYD ITE PATIENT [facility] (WNR) MEDICARE ADVANTAGE [facility] (WNR) Aug 23, 2020 [id number] [phone] ANNALISA LOYD ITE PATIENT [facility] (WNR) MEDICARE [facility](W NR) Aug 23, 2012 [id number] ANNALISA LOYD ITE PATIENT Selected Encounter [...] activities for the patient from all [place] [facility]. This section includes future appointments [...] AM AM[place]ULATORY [place] [facility] Nov 04, 2023 09:30 AM AM[place]ULATORY [place] [facility] Nov 29, 2023 11:30 AM AMBULATORY - NONE [facility] Dec 10, 2023 02:00 PM [place]ULATORY [place] [facility] Dec 13, 2023 02:30 PM AMBULATORY - MEDICINE [facility] Dec 13, 2023 02:31 PM AMBULATORY - NONE [place] [facility] Dec 16, 2023 08:00 AM AMBULATORY [place] [facility] Dec 21, 2023 01:30 PM AMBULATORY [place] [facility] Feb 21, 2024 10:15 AM AMBULATORY - NONE [place] [facility] Feb 21, 2024 11:00 AM AMBULATORY - NONE [place] [facility] Mar 18, 2024 12:01 AM AMBULATORY - NONE [place] [facility] Apr 06, 2024 01:00 PM AMBULATORY - NONE [place] [facility] Apr 06, 2024 01:00 PM AMBULATORY - MEDICINE [facility] Apr 10, 2024 01:30 PM AMBULATORY - MEDICINE [facility] Apr 10, 2024 01:31 PM AMBULATORY - NONE [place] [facility] Apr 11, 2024 10:00 AM AMBULATORY - SURGERY [facility] Apr 11, 2024 10:01 AM AMBULATORY - [place] [facility] Social History: Smoking Status (Most [...] comes from all [place] treatment facilities. Date/Time Radiology Report Provider Source Oct 22, 2023 04:[address] ABD & PELVIS WI THOUT CONTRAST: GALINA LOYD [id number] -1945 M Exm Date: OCT 22, 2023@04:45 Req Phys: HINATODD Pat Loc: OUTSIDE [facility] CT SCAN (Req'g Loc Img Loc: OUTSIDE [facility] CT SCAN Service: Unknown (Case [id number] COMPLETE) CT ABD & PELVIS WITHOUT CONTRAST (CT Detailed) CPT:72904 Reason for Study: Exam imported from outside Clinical History: Original Data for Imported Study Patient Name: GALINA LOYD Date: 1945 Sex: M Study Date: 10/22/23 Study Time: 04:45:59 Study Description: CT ABDOMEN AND PELVIS WO CONTRAST Referring Physician: JONN GUSTAFSON JR Series 1: 1 CT file, description: Tag Marker LAT Series 2: 1 CT file, description: Tag Marker AP Series 3: 1 CT file, description: Patient Protocol Series 4: 156 CT files, description: STD WO F_0.6 Series 5: 778 CT files, description: STD THN WO F_0.6 Series 6: 88 CT files, description: COR 3 WO F_0.6 Series 7: 115 CT files, description: SAG 3 WO F_0.6 Series 8: 2 SD files, description: [id number] Series 9: 1 KO file, description: [id number] Report Status: Electronically Filed Date Reported: NOV [...] BY: / *ELECTRONICALLY FILED* [facility] [place] [facility] Encounter Notes: All associated encounter [...] 10/18/2023 OFFICE CLINIC NOTE PHYSICIAN-FOLLOW UP SEIZURE. [facility] /es/ AGGIE JERONIMO Lead Signed: 11/06/2023 12:44 11/10/2023 ADDENDUM STATUS: COMPLETED Chief Complaint Pt comes today with his , Darrel, for seizure follow up. They can't remember when his last seizure was, but explaine it was a long time ago. 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 His last seizure was on January 23, 2023. This was some minor seizure and had gone to [facility]. Prior to that he had a seizure [...] the stone on October 21, 2023 at [facility]. He is currently taking lacosamide 50 mg--4 [...] them that I will be leaving the [facility] practice in August 2024. discussed with [...] some minor seizure and had gone to [facility]. Prior to that he had a seizure [...] the stone on October 21, 2023 at [facility]. He is currently taking lacosamide 50 mg-4 [...] them that I will be leaving the [facility] practice in August 2024. I discussed with them the option of seeing Dr. Abram Jones or Meng Long APRN. They are comfortable with transferring the care to [facility]. I reassured them that I will be [...] some minor seizure and had gone to [facility]. Prior to that he had a seizure [...] the stone on October 21, 2023 at [facility]. He is currently taking lacosamide 50 mg-4 [...] them that I will be leaving the [facility] practice in August 2024. I discussed with them the option of seeing Dr. Abram Jones or Meng Long APRN. They are comfortable with transferring the care to [facility]. I reassured them that I will be available by phone and in discussions with Meng Long APRN. 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
--- OUTSIDE RECORDS SUMMARY | 2024-07-07 22:18 | XMS_ITS | Encounter Summary ---
Author Name Department [place] Organization [place] Address [address] [place] [address] Care Team Providers Care Patient Office Rep Name Role Phone KYRA VELASQUEZ Primary Care [...] Patient's Relationship to Policy Ervin [facility] (WNR) MEDICARE [facility](W NR) * Aug 23, 2023 [id number] ANNALISA LOYD ITE PATIENT [facility] (WNR) MEDICARE ADVANTAGE [facility] (WNR) Aug 23, 2020 [id number] [phone] ANNALISA LOYD ITE PATIENT [facility] (WNR) MEDICARE ADVANTAGE [facility](W NR) Aug 23, 2012 [id number] ANNALISA LOYD ITJannette PATIENT Selected Encounter This section includes the information on record at [place] for the Encounter. Date/Time Encounter Type Encounter Description Reason Pro vider Source Nov 15, 2023 09:27 AM Outpatient Encounter ADMIN PAT ACTIVTIES (MASNONCT) IHE Encounter Template Text not used by [place] [...] SURGERY [place] [facility] Dec 13, 2023 02:30 PM AMBULATORY - MEDICINE [facility] Dec 13, 2023 02:31 PM AMBULATORY - NONE [place] [facility] Dec 16, 2023 08:00 AM AMBULATORY [place] [facility] Dec 21, 2023 01:30 PM AMBULATORY [place] [facility] Feb 21, 2024 10:15 AM AMBULATORY - NONE [place] [facility] [facility] Feb 21, 2024 11:00 AM AMBULATORY - NONE [place] [facility] [facility] Mar 18, 2024 12:01 AM AMBULATORY - NONE [place] [facility] [facility] Apr 06, 2024 01:00 PM AMBULATORY - NONE [place] [facility] Apr 06, 2024 01:00 PM AMBULATORY - MEDICINE [facility] Apr 10, 2024 01:30 PM AMBULATORY - MEDICINE [facility] Apr 10, 2024 01:31 PM AMBULATORY - NONE [place] [facility] Apr 11, 2024 10:00 AM AMBULATORY - SURGERY [facility] Apr 11, 2024 10:01 AM [place]UL[place] [facility] Apr 21, 2024 10:30 AM AMBULATORY - NONE [place] [facility] [facility] May 03, 2024 02:30 PM [place] [facility] May 04, 2024 10:30 AM [place] [facility] May 04, 2024 11:00 AM [place] [facility] May 04, 2024 12:30 PM AMBULATORY - NONE [place] [facility] Lab Results: +/- 30 days of [...] Nov 24, 2023 05:48 PM Reporting Lab: [facility] [address] [facility] [address] Performing Lab: [facility] [address] [address] [address] URINE COLOR Light[place] NOT DEFINED SPECIFIC GRAVITY 1.013 1.003-1.030 UROBILINOGEN [...] PM CURRENT SMOKER REINIER GAYLE [facility] Tobacco Use History This section includes [...] PM CURRENT SMOKER REINIER GAYLE [facility] Dec 08, 2020 08:45 PM VA-TOBACCO [...] & PELVIS WI THOUT CONTRAST: GALINA LOYD [id number] -1945 M Exm Date: OCT 22, 2023@04:45 Req Phys: TODD SANTAMARIA Pat Loc: OUTSIDE [facility] CT SCAN (Req'g Loc Img Loc: OUTSIDE [facility] CT SCAN Service: Unknown (Case [id number] COMPLETE) CT ABD & PELVIS WITHOUT CONTRAST (CT Detailed) CPT:83670 Reason for Study: Exam imported from outside Clinical History: Original Data for Imported Study Patient Name: GALINA LOYD Date: 1945 Sex: M Study Date: 10/22/23 Study Time: 04:45:59 Study Description: CT ABDOMEN AND PELVIS WO CONTRAST Referring Physician: JONN GUSTAFSON JR Series 1: 1 CT file, description: Military Aircraft Designer LAT Series 2: 1 CT file, description: Military Aircraft Designer AP Series 3: 1 CT file, description: Patient Protocol Series 4: 156 CT files, description: STD WO F_0.6 Series 5: 778 CT files, description: STD THN WO F_0.6 Series 6: 88 CT files, description: COR 3 WO F_0.6 Series 7: 115 CT files, description: SAG 3 WO F_0.6 Series 8: 2 [place] files, description: [id number] Series 9: 1 KO file, description: [id number] Report Status: Electronically Filed Date Reported: NOV 26, 2023 Report: RADIOLOGY PROCEDURE: N O T I C E: SCANNED IN EXAM THIS EXAMINATION WAS PERFORMED AND INTERPRETED AT A NON-[place] FACILITY. To view the Images or report (if a report was included with the images), select the Talk[employer] Tools Menu and choose the Image Display (Viewer) option. Impression: RADIOLOGY PROCEDURE: N O T I C E: SCANNED IN EXAM THIS EXAMINATION WAS PERFORMED AND INTERPRETED AT A NON-[place] FACILITY. To view the Images or report (if a report was included with the images), select the CPRS Tools Menu and choose the Image Display (Viewer) option. VERIFIED BY: / *ELECTRONICALLY FILED* SONYA PINON [facility] Pathology Reports: +/- 30 days of the [...] Reporting Lab: S[facility] [CLIA# [id number]] [address] [place] [address] Accession [UID]: [id number] [[id number]] Received: Nov 30, 2023@19:53 Collection sample: URINE CLEAN CATCH Collection date: Nov 29, 2023 11:27 Site/Specimen: URINE Provider: CORBY OSORIO Test(s) ordered: CULTURE,URINE CLEAN CATCH..... completed: Dec 02, 2023 13:00 * BACTERIOLOGY FINAL REPORT => Dec 02, 2023 13:01 TECH CODE: [id number] Bacteriology Remark(s): 12/02/23 50,000-99,000 CFU/mL AT LEAST THREE BACTERIAL TYPES PRESENT INDICATING POSSIBLE CONTAMINATION, PLEASE REPEAT COLLECTION. =--=--=--=--=--=--=--=--=--=--= --=--=--=--=--=--=--=--=--=--=- -=--=--=--=--=-- Performing Laboratory: Bacteriology Report Performed By: S[facility] [CLIA# [id number]] [address] [place] [address] [facility] Encounter Notes: All associated [...] Acknowledged By: 11/26/2023 11:59 /vivian/ JENIFER SHANE MOTORCYCLE RACER --- Original Document --- 11/15/23 NonVA Medical Records: NONVA 11/15/2023 OFFICE VISIT-FOLLICULAR [facility] // ETIENNE WOOD Signed: 11/26/2023 09:29 Receipt Acknowledged By: 11/26/2023 11:49 /vivian/ Shamika GALDAMEZ MARYANN [place] [facility] Nov 15, 2023 09:27 AM NONVA NOTE: LOCAL TITLE: NonVA Medical Records STANDARD TITLE: NONVA NOTE DATE OF NOTE: NOV 15, 2023@09:27 ENTRY DATE: NOV 26, 2023@09:28:34 AUTHOR: ETIENNE WOOD EXP COSIGNER: URGENCY: STATUS: COMPLETED NonVA Medical Records Has ADDENDA NONVA 11/15/2023 OFFICE VISIT-FOLLICULAR [facility] /huber WOOD Signed: 11/26/2023 09:29 Receipt Acknowledged By: 11/26/2023 11:49 /vivian/ KYRA VELASQUEZ M.D 11/26/2023 ADDENDUM STATUS: COMPLETED please scan to chart /vivian/ KYRA VELASQUEZ M.D Signed: 11/26/2023 11:49 Receipt Acknowledged By: * AWAITING SIGNATURE * JENIFER SHANE TARA L [place] [facility]
--- OUTSIDE RECORDS SUMMARY | 2024-07-07 22:19 | XMS_ITS ---
Author Name [place] Address [address] [place] [address] Care Team Providers Care Economic Analysis Director Name Role Phone KYRA VELASQUEZ Primary Care [...] Ervin [facility] (WNR) MEDICARE ADVANTAGE MCR(W NR) * Aug 23, 2023 [id number] ANNALISA EDUARDO ITE PATIENT [facility] (WNR) MEDICARE ADVANTAGE [facility] (WNR) Aug 23, 2020 [id number] [phone] ANNALISA EDUARDO ITE PATIENT [facility] (WNR) MEDICARE [facility](W NR) Aug 23, 2012 [id number] [phone] ANNALISA EDUARDO ITE PATIENT Selected Encounter This section includes the information on record at [place] for the Encounter. Date/Time Encounter Type Encounter Description Reason Pro vider Source Nov 29, 2023 11:46 AM Outpatient Encounter PRIMARY CARE/MEDICINE IHE Encounter Template Text not used by [place] Plan of Treatment: Future Appointments (+ 6 months) and Future Tests (+/- 45 days) The Plan of Treatment section includes future care activities for the patient [facility] all [place] [facility]. This section includes future appointments [...] PM AMBULATORY - [place] [facility] Dec 13, 2023 02:30 PM AMBULATORY - MEDICINE [facility] Dec 13, 2023 02:31 PM AM[place]ULATORY - [place]ONE [place] [facility] Dec 16, 2023 08:00 AM AMBULATORY - [place]GERY [place] [facility] Dec 21, 2023 01:30 PM AMBULATORY - [place]GERY [place] [facility] Feb 21, 2024 10:15 AM AMBULATORY - NONE [place] [facility] Feb 21, 2024 11:00 AM AMBULATORY - NONE [place] [facility] Mar 18, 2024 12:01 AM AMBULATORY - [place]ONE [place] [facility] Apr 06, 2024 01:00 PM AMBULATORY - [place]ONE [place] [facility] Apr 06, 2024 01:00 PM AMBULATORY - MEDICINE [facility] Apr 10, 2024 01:30 PM AMBULATORY - MEDICINE [facility] Apr 10, 2024 01:31 PM AMBULATORY - [place]ONE [place] [facility] Apr 11, 2024 10:00 AM AMBULATORY - SURGERY [facility] Apr 11, 2024 10:01 AM AMBULATORY [place] [facility] Apr 21, 2024 10:30 AM AMBULATORY - NONE [place] [facility] May 03, 2024 02:30 PM AMBULATORY [place]GERY [place] [facility] May 04, 2024 10:30 AM [place] [facility] May 04, 2024 11:00 AM AMBULATORY - SURGERY [place] [facility] May 04, 2024 12:30 PM AMBULATORY - NONE [place] [facility] May 04, 2024 01:00 PM AMBULATORY - SURGERY [facility] Lab Results: +/- 30 days [...] Nov 24, 2023 05:48 PM Reporting Lab: [facility] [address] [facility] [address] Performing Lab: [facility] [address] [facility] [address] URINE COLOR Light-[place] NOT DEFINED SPECIFIC GRAVITY 1.013 1.003-1.030 UROBILINOGEN [...] 2021 02:41 PM CURRENT SMOKER [facility] Dec 08, 2020 08:45 PM VA-TOBACCO [...] 11:15 AM UROGRAM RETROGRADE : GALINA EDUARDO [id number] -1945 M Exm Date: DEC 16, 2023@11:15 Req Phys: CORBY OSORIO Pat Loc: [facility] GENERAL G2RD (Req'g Img Loc: XRAY (OOS) Service: [place] [address] (Case 447 COMPLETE) UROGRAM RETROGRADE (RAD Detailed) CPT:42587 Contrast Media : Non-ionic Iodinated Proc Modifiers : OPERATING ROOM EXAM Reason for Study: bilat ureteroscopy laser litho, stent placement Clinical History: calculus of kidney Report Status: Verified Date Reported: DEC 16, 2023 Date Verified: DEC 16, 2023 Joggle Press Operator E-Sig:/ES/BENJAMÍN PIMENTEL Report: UROGRAM RETROGRADE 12/16/2023 11:15 AM Impression: Fluoroscopy performed during urology service procedure. FINDINGS: Procedure performed with the C-arm fluoroscopy . Fluoroscopy time 55 seconds, dose 9 mGy Fluoroscopic images consistent with history of bilateral ureteroscopy and stent placement. Labels from bilateral [employer]atplaces Contour double-J ureteral stents placed on the scanned worksheet Please see procedure note for further details. HISTORY: bilat ureteroscopy laser litho, stent placement, Primary Diagnostic Code: NO IMMEDIATE ATTENTION REQUIRED Primary Interpreting Staff: BENJAMÍN PIMENTEL, Staff Physician (Miah) /BENJAMÍN HYLTON [place] [facility] Pathology Reports: +/- 30 days of the [...] MICROBIOLOGY RE PORT: Reporting Lab: [facility] [CLIA# [id number]] [address] [place] [address] Accession [UID]: [id number] [[id number]] Received: Nov 30, 2023@19:53 Collection sample: URINE CLEAN CATCH Collection date: Nov 29, 2023 11:27 Site/Specimen: URINE Provider: CORBY OSORIO Test(s) ordered: CULTURE,URINE CLEAN CATCH..... completed: Dec 02, 2023 13:00 * BACTERIOLOGY FINAL REPORT => Dec 02, 2023 13:01 TECH CODE: [id number] Bacteriology Remark(s): 12/02/23 50,000-99,000 CFU/mL AT LEAST THREE BACTERIAL TYPES PRESENT INDICATING POSSIBLE CONTAMINATION, PLEASE REPEAT COLLECTION. =--=--=--=--=--=--=--=--=--=--= --=--=--=--=--=--=--=--=--=--=- -=--=--=--=--=-- Performing Laboratory: Bacteriology Report Performed By: SONYA PINON [facility] [CLIA# [id number]] [address] [place] [address] [facility] Encounter Notes: All associated [...] JENIFER SHANEIGNER: URGENCY: STATUS: [place] [address] [phone] Galina Eduardo is being seen for the evaluation of follicular lymphoma. Assessment & Plan: Galina Eduardo is a 78 y.o. male patient with a PMH of an abdominal aortic aneurysm, thoracic aortic aneurysm, hypertension, prior alcohol abuse, tobacco abuse, a stroke in early 2019 and follicular lymphoma who completed EBRT for localized prostate cancer 04/2020 who wishes to followup here in [facility] for his lymphoma rather than [place] the [place] given the [place]. He [...] profound fatigue, or F/C/sweats. Treated at the [place] by Dr. Martha Castañeda - PET-CT 11/26/15 [...] (he opted to not receive ADT) at [facility] with Dr. Evans 02/26-04/26/20 97.2 Gy in 44 fractions 11/15/23 PSA 0.22 WBC 12.08, H/H 13.2/40.9, pIt 242, ANC 48774, Ca 9.3, Glucose 157, BUN 12, Creat 1.0, t protein 6.9, albumin 3.1, t bili 0.3, alk phos 120, Na 141, K 3.9, Cl 103, CO2 32.3, LDH 117, AST 12, ALT 16 /es/ JENIFER SHANE HEAVY EQUIPMENT SALES ASSOCIATE Signed: 11/29/2023 11:50 Receipt Acknowledged By: 11/29/2023 12:47 /es/ Shamika GALDAMEZ [facility]
--- OUTSIDE RECORDS SUMMARY | 2024-07-07 22:19 | XMS_ITS | Encounter Summary ---
Author Name [place] Address [address] [place] [address] Care Team Providers Care Senior Hardware Design Engineer Name Role Phone KYRA VELASQUEZ Primary [...] Name Patient's Relationship to Policy Ervin [facility] (WNR) MEDICARE ADVANTAGE [facility](W NR) * Aug 23, 2023 [id number] ANNALISA LOYD ITE PATIENT [facility] MCR (WNR) MEDICARE ADVANTAGE [facility] (WNR) Aug 23, 2020 [id number] [phone] ANNALISA LOYD ITE PATIENT [facility] (WNR) MEDICARE ADVANTAGE [facility](W NR) Aug 23, 2012 [id number] ANNALISA LOYD PATIENT Selected Encounter This section includes the information on record at [place] for the Encounter. Date/Time Encounter Type Encounter Description Reason Provider Source Dec 16, 2023 11:04 AM CYSTO/URETERO W/LITHOTRIPSY EVENT (HISTORICAL) KORY WEAVER Encounter Template Text not used by [place] [...] PM AMBUL[place]ORY - [place]GERY [place] [facility] Feb 21, 2024 10:15 AM AMBULATORY - NONE [place] [facility] Feb 21, 2024 11:00 AM AMBULATORY - NONE [place] [facility] Mar 18, 2024 12:01 AM AMBULATORY - NONE [place] [facility] Apr 06, 2024 01:00 PM [place]ORY - [place] [facility] Apr 06, 2024 01:00 PM [facility] Apr 10, 2024 01:30 PM AMBULATORY - MEDICINE [facility] Apr 10, 2024 01:31 PM [place]BULATORY - NONE [place] [facility] Apr 11, 2024 10:00 AM AMBULATORY - SURGERY [facility] Apr 11, 2024 10:01 AM [place]BUL[place]ORY [place] [facility] Apr 21, 2024 10:30 AM AMBULATORY - NONE [place] [facility] May 03, 2024 02:30 PM AMBULATORY - SURGERY [place] [facility] May 04, 2024 10:30 AM [place] [facility] May 04, 2024 11:00 AM AMBULATORY - SURGERY [place] [facility] May 04, 2024 12:30 PM AMBULATORY - NONE [place] [facility] May 04, 2024 01:00 PM AMBULATORY - SURGERY [place] [facility] May 08, 2024 02:30 PM AMBULATORY - MEDICINE [facility] May 08, 2024 02:31 PM AMBULATORY - NONE [place] [facility] May 16, 2024 10:00 AM AMBULATORY - SURGERY [facility] May 16, 2024 10:01 AM AMBULATORY - SURGERY [facility] Active, Pending, and Scheduled [...] 12:13 PM Consult Order COMMUNITY CARE-NEUROLOGY Cons Concrete Engineer's Choice [facility] Surgical Procedures: All associated to the encounter This section includes all Surgical Procedures and Surgical Procedure Notes associated to the Encounter. Surgical Procedures This section includes all Surgical Procedures associated to the Encounter. Surgical Procedure Date/Time Procedure Procedure Type Procedure Qualifiers Provider Source Dec 16, 2023 11:04 AM BILATERAL URETEROSCOPY LASER LITHOTRIPSY STENT PLACEMENT CYSTO/URETERO W/LITHOTRIPSY GRECIA CHEUNG [facility] Surgical Notes This section includes all Surgical Notes associated to the Procedure. Date/Time Dec 16, 2023 11:04 AM OPERATIVE REPORT: LOCAL TITLE: OPERATION REPORT STANDARD TITLE: OPERATIVE REPORT DATE OF NOTE: DEC 16, 2023@11:04 ENTRY DATE: DEC 16, 2023@13:34:03 SURGEON: SON CHEUNG ATTENDING: CORBY OSORIO URGENCY: STATUS: COMPLETED SUBJECT: Case #: [id number] GALINA LOYD/[id number] [facility] 2023 OPERATION REPORT DATE OF PROCEDURE: [...] left URS with bilateral stent placement [place] [facility] [place] with small residual fragment on [...] Cheung MD Urology Resident Signed: 12/17/2023 08:40 /huber OSORIO MD Staff Surgeon, Urology Cosigned: 12/17/2023 08:59 SON CHEUNG Dec 16, 2023 11:04 AM NURSING OPERATIVE NOTE: LOCAL TITLE: NURSE INTRAOPERATIVE REPORT STANDARD TITLE: NURSING OPERATIVE NOTE DATE OF NOTE: DEC 16, 2023@11:04 ENTRY DATE: DEC 16, 2023@13:34:03 AUTHOR: KORY WEAVER EXP COSIGNER: URGENCY: STATUS: COMPLETED SUBJECT: Case #: [id number] Operating Room: OR 4 Surgical Priority: ELECTIVE [...] Discharged Via: STRETCHER Primary Surgeon: SON CHEUNG Strap Maker: SHONDA GATICA Attending Surgeon: CORBY OSORIO Second Assist: N/A Costume Design Teacher: ALICIA TELLEZ Immigration Associate Anesth: N/A OR Support Personnel: Scrubbed Circulating LYN ROTH () KORY WEAVER () MIKAELA MANCUSO () SARAH SMITH () ZAN MILLER JR () Other Persons in OR: KYLE DELGADILLO (RADIOLOGY) Preop Mood: RELAXED Preop Consc: ALERT-ORIENTED Preop Skin Integ: WARM, DRY & INTACT Preop [place]: N/A --- Time Out Checklist --- Confirm [...] Sterility Expiration Date: APR 19, 2026 RN Specialty Transformer Assembler: SARAH SMITH Vendor: [employer] Model: [id number] Lot Number: [id number] Serial Number: na Sterile Resp: ELECTRONIC SPECIALIST Size: 7F X 22CM-30CM Quantity: 2 Provider [...] and Hematology Lab Results on record with [place] for the patient. Radiology Reports and Pathology [...] 2023 05:48 PM [facility] [address] [facility] [address] Performing Lab: [facility] [address] [facility] [address] URINE COLOR Light-[place] NOT DEFINED SPECIFIC GRAVITY 1.013 1.003-1.030 UROBILINOGEN [...] 136/84 20 96 0 69 122.3 18 [facility] Social [...] 11:15 AM UROGRAM RETROGRADE : GALINA LOYD [id number] -1945 M Exm Date: DEC 16, 2023@11:15 Req Phys: CORBY OSORIO Pat Loc: [facility] GENERAL G2RD (Req'g Img Loc: XRAY (OOS) Service: [place] [address] (Case 447 COMPLETE) UROGRAM RETROGRADE (RAD Detailed) CPT:82128 Contrast Media : Non-ionic Iodinated Proc Modifiers : OPERATING ROOM EXAM Reason for Study: bilat ureteroscopy laser litho, stent placement Clinical History: calculus of kidney Report Status: Verified Date Reported: DEC 16, 2023 Date Verified: DEC 16, 2023 Specialty Transformer Assembler E-Sig:/ES/BENJAMÍN PIMENTEL Report: UROGRAM RETROGRADE 12/16/2023 11:15 AM Impression: Fluoroscopy performed during urology service procedure. FINDINGS: Procedure performed with the C-arm fluoroscopy . Fluoroscopy time 55 seconds, dose 9 mGy Fluoroscopic images consistent with history of bilateral ureteroscopy and stent placement. Labels from bilateral [employer] Contour double-J ureteral stents placed on the scanned worksheet Please see procedure note for further details. HISTORY: bilat ureteroscopy laser litho, stent placement, Primary Diagnostic Code: NO IMMEDIATE ATTENTION REQUIRED Primary Interpreting Staff: BENJAMÍN PIMENTEL, Staff Physician (Specialty Transformer Assembler) /BENJAMÍN HYLTON [facility] Pathology Reports: +/- [...] MICROBIOLOGY RE PORT: Reporting Lab: SONYA PINON [facility] [CLIA# [id number]] [address] [place] [address] Accession [UID]: [id number] [[id number]] Received: Nov 30, 2023@19:53 Collection sample: URINE CLEAN CATCH Collection date: Nov 29, 2023 11:27 Site/Specimen: URINE Provider: CORBY OSORIO Test(s) ordered: CULTURE,URINE CLEAN CATCH..... completed: Dec 02, 2023 13:00 * BACTERIOLOGY FINAL REPORT => Dec 02, 2023 13:01 TECH CODE: [id number] Bacteriology Remark(s): 12/02/23 50,000-99,000 CFU/mL AT LEAST THREE BACTERIAL TYPES PRESENT INDICATING POSSIBLE CONTAMINATION, PLEASE REPEAT COLLECTION. =--=--=--=--=--=--=--=--=--=--= --=--=--=--=--=--=--=--=--=--=- -=--=--=--=--=-- Performing Laboratory: Bacteriology Report Performed By: [facility] [CLIA# [id number]] [address] [place] [address] [facility] Encounter Notes: All associated encounter notes This section contains the clinical notes associated to the Encounter. Date/Time Encounter Note(s) Provider Source Dec 16, 2023 11:04 AM NURSING OPERATIVE NOTE: LOCAL TITLE: NURSE INTRAOPERATIVE REPORT STANDARD TITLE: NURSING OPERATIVE NOTE DATE OF NOTE: DEC 16, 2023@11:04 ENTRY DATE: DEC 16, 2023@13:34:03 AUTHOR: KOYR WEAVER EXP COSIGNER: URGENCY: STATUS: COMPLETED SUBJECT: Case #: [id number] Operating Room: OR 4 Surgical Priority: ELECTIVE [...] Discharged Via: STRETCHER Primary Surgeon: SON CHEUNG Strap Maker: SHONDA GATICA Attending Surgeon: CORBY OSORIO Second Assist: N/A Costume Design Teacher: ALICIA TELLEZ Immigration Associate Anesth: N/A OR Support Personnel: Scrubbed Circulating LYN ROTH () KORY WEAVER () MIKAELA MANCUSO () SARAH SMITH () ZAN MILLER JR () Other Persons in OR: KYLE DELGADILLO (RADIOLOGY) Preop Mood: RELAXED Preop Consc: ALERT-ORIENTED Preop Skin Integ: WARM, DRY & INTACT Preop [place]: N/A --- Time Out Checklist --- Confirm [...] Sterility Expiration Date: APR 19, 2026 RN Specialty Transformer Assembler: SARAH SMITH Vendor: [employer] Model: [id number] Lot Number: [id number] Serial Number: na Sterile Resp: ELECTRONIC SPECIALIST Size: 7F X 22CM-30CM Quantity: 2 Provider [...] WEAVER RN Signed: 12/16/2023 13:35 KORY WEAVER [facility] Dec 16, 2023 11:04 AM OPERATIVE REPORT: LOCAL TITLE: OPERATION REPORT STANDARD TITLE: OPERATIVE REPORT DATE OF NOTE: DEC 16, 2023@11:04 ENTRY DATE: DEC 16, 2023@13:34:03 SURGEON: SON CHEUNG ATTENDING: CORBY OSORIO URGENCY: STATUS: COMPLETED SUBJECT: Case #: [id number] EVELYN LOYDE/[id number]/Nov OPERATION REPORT DATE OF PROCEDURE: DEC 16, [...] left URS with bilateral stent placement [place] [facility] [place] with small residual fragment on [...] fragments in one of the calyces. The [employer] Holmium laser was used to dust the [...] Surgeon, Urology Cosigned: 12/17/2023 08:59 SON CHEUNG [facility]
--- OUTSIDE RECORDS SUMMARY | 2024-07-07 22:19 | XMS_ITS | Encounter Summary ---
Author Name Department [place] Organization [place] Address [address] [place] [address] Care Team Providers Care Hand Model Name Role Phone RONKATHARINEKYRA Primary Care Provider [...] Name Patient's Relationship to Policy Ervin [facility] (WNR) MEDICARE [facility](W NR) * Aug 23, 2023 [id number] [phone] ANNALISA LOYD ITE PATIENT [facility] (WNR) MEDICARE ADVANTAGE [facility] (WNR) Aug 23, 2020 [id number] [phone] ANNALISA LOYD ITE PATIENT [facility] (WNR) MEDICARE [facility](W NR) Aug 23, 2012 [id number] ANNALISA LOYD ITE PATIENT Selected Encounter [...] activities for the [facility] [place] [facility] This section includes future appointments [...] SURGERY [place] [facility] Feb 21, 2024 10:15 [...] AM AMBULATORY - SURGERY [place] [facility] Apr 21, 2024 10:30 AM AMBULATORY - [place]ONE [place] [facility] May 03, 2024 02:30 PM AMBULATORY - SURGERY [place] [facility] May 04, 2024 10:30 AM [place] [facility] May 04, 2024 11:00 AM AMBULATORY - SURGERY [place] [facility] May 04, 2024 12:30 PM AMBULATORY - NONE [place] [facility] May 04, 2024 01:00 PM AMBULATORY - SURGERY [place] [facility] May 08, 2024 02:30 PM AMBULATORY - MEDICINE [facility] May 08, 2024 02:31 PM AMBULATORY - NONE [place] [facility] May 16, 2024 10:00 [...] 12:13 PM Consult Order COMMUNITY CARE-NEUROLOGY Cons Promotions Intern's Choice [facility] Lab Results: +/- [...] Reporting Lab: [facility] [address] [facility] [address] Performing Lab: [facility] [address] [facility] [address] URINE COLOR Light-[place] NOT DEFINED SPECIFIC GRAVITY 1.013 1.003-1.030 UROBILINOGEN [...] SMOKER [facility] Tobacco Use History This section includes [...] 11:15 AM UROGRAM RETROGRADE : GALINA LOYD [id number] -1945 M Exm Date: DEC 16, 2023@11:15 Req Phys: CORBY OSORIO QUIÑONES Pat Loc: [facility] GENER[facility] G2RD (Req'g Img Loc: XRAY (OOS) Service: Unknown [facility] [place] [address] (Case 447 COMPLETE) UROGRAM RETROGRADE (RAD Detailed) CPT:04736 Contrast Media : Non-ionic Iodinated Proc Modifiers : OPERATING ROOM EXAM Reason for Study: bilat ureteroscopy laser litho, stent placement Clinical History: calculus of kidney Report Status: Verified Date Reported: DEC 16, 2023 Date Verified: DEC 16, 2023 Chief Innovation Officer E-Sig:/PARIS/BENJAMÍN PIMENTEL Report: UROGRAM RETROGRADE 12/16/2023 11:15 AM Impression: Fluoroscopy performed during urology service procedure. FINDINGS: Procedure performed with the C-arm fluoroscopy . Fluoroscopy time 55 seconds, dose 9 mGy Fluoroscopic images consistent with history of bilateral ureteroscopy and stent placement. Labels from bilateral [employer] Contour double-J ureteral stents placed on the scanned worksheet Please see procedure note for further details. HISTORY: bilat ureteroscopy laser litho, stent placement, Primary Diagnostic Code: NO IMMEDIATE ATTENTION REQUIRED Primary Interpreting Staff: BENJAMÍN PIMENTEL, Staff Physician (Chief Innovation Officer) /BENJAMÍN HYLTON [facility] Pathology Reports: +/- 30 days of [...] MICROBIOLOGY RE PORT: Reporting Lab: SONYA PIN[facility] [CLIA# [id number]] [address] [place] [address] Accession [UID]: [id number] [[id number]] Received: Nov 30, 2023@19:53 Collection sample: URINE CLEAN CATCH Collection date: Nov 29, 2023 11:27 Site/Specimen: URINE Provider: CORBY OSORIO Test(s) ordered: CULTURE,URINE CLEAN CATCH..... completed: Dec 02, 2023 13:00 * BACTERIOLOGY FINAL REPORT => Dec 02, 2023 13:01 TECH CODE: [id number] Bacteriology Remark(s): 12/02/23 50,000-99,000 CFU/mL AT LEAST THREE BACTERIAL TYPES PRESENT INDICATING POSSIBLE CONTAMINATION, PLEASE REPEAT COLLECTION. =--=--=--=--=--=--=--=--=--=--= --=--=--=--=--=--=--=--=--=--=- -=--=--=--=--=-- Performing Laboratory: Bacteriology Report Performed By: [facility] [CLIA# [id number]] [address] [facility] [place] [address] [facility]
--- OUTSIDE RECORDS SUMMARY | 2024-07-07 22:19 | XMS_ITS ---
[place] MED NUTRITION [facility] [facility] Encounter Summary Created on: July 07, 2024 GALINA LOYD : 1945 Sex: Male Author Name [place] Address [address] [place] [address] Care Team Providers Care Jewel Staker Name Role Phone RON KYRA Primary Care [...] Ervin's Name Patient's Relationship to Policy Ervin [facility] (WNR) MEDICARE ADVANTAGE MCR(W NR) * Aug 23, 2023 [id number] ANNALISA LOYD ITE PATIENT [facility] (WNR) MEDICARE ADVANTAGE [facility] (WNR) Aug 23, 2020 [id number] [phone] ANNALISA LOYD ITE PATIENT [facility] (WNR) MEDICARE ADVANTAGE [facility](W NR) Aug 23, 2012 [id number] [phone] ANNALISA LOYD ITJannette PATIENT Selected Encounter This section includes the information on record at [place] for the Encounter. Date/Time Encounter Type Encounter Description Reason Provider Source Dec 13, 2023 02:31 PM MED NUTRITION INDIV SUBSEQ NUTRITION/DIETETI CS-INDIVIDUAL ICD-10-CM Z71.3 Dietary counseling and surveillance PURNIMA GANDHI [facility] Encounter Template Text not used by [place] Assessments - Encounter Diagnoses This section includes the primary and secondary diagnoses documented for the Encounter. Date/Time Primary/Secondary Diagnosis Diagnosis Name Provider Source Dec 13, 2023 03:10 PM PRIMARY Dietary counseling and surveillance PURNIMA GANDHI SONYA GAYLE [facility] Dec 13, 2023 03:10 PM SECONDARY Body mass index [BMI] 19.9 or less, adult PURNIMA GANDHI SONYA GAYLE [facility] Plan of Treatment: Future Appointments (+ 6 months) and Future Tests (+/- 45 days) The Plan of Treatment section includes future care activities for the patient from all [place] [facility] This section includes future [...] [place] [facility] Dec 21, 2023 01:30 PM AMBULATORY - [place]GERY [place] [facility] Feb 21, 2024 10:15 AM AMBULATORY - NONE [place] [facility] Feb 21, 2024 11:00 AM AMBULATORY - NONE [place] [facility] Mar 18, 2024 12:01 AM AMBULATORY - NONE [place] [facility] Apr 06, 2024 01:00 PM AMBULATORY - NONE [place] [facility] Apr 06, 2024 01:00 PM AMBULATORY - MEDICINE [facility] Apr 10, 2024 01:30 PM AMBULATORY - MEDICINE [facility] Apr 10, 2024 01:31 PM AMBULATORY - NONE [place] [facility] Apr 11, 2024 10:00 AM AMBULATORY - SURGERY [facility] Apr 11, 2024 10:01 AM AMBUL[place] [facility] Apr 21, 2024 10:30 AM AMBULATORY - NONE [place] [facility] May 03, 2024 02:30 PM AM[place]ORY [place] [facility] May 04, 2024 10:30 AM AMBULATORY - MEDICINE REINIER GAYLE [facility] May 04, 2024 11:00 AM AMBULATORY - SURGERY SONYA GAYLE [facility] May 04, 2024 12:30 PM AMBULATORY - NONE SONYA LAI [facility] May 04, 2024 01:00 PM AMBULATORY - SURGERY SONYA GAYLE [facility] May 08, 2024 02:30 PM AM[facility]ULAT[facility] May 08, 2024 02:31 PM AMBULATORY - NONE SONYA LAI [facility] May 16, 2024 10:00 AM AMBULATORY - SURGERY [facility] Active, Pending, and Scheduled Orders [...] 12:13 PM Consult Order COMMUNITY CARE-NEUROLOGY Cons Metallographic Technician's Choice [facility] Lab Results: +/- [...] Comment Nov 29, 2023 11:27 AM [facility] URINALYSIS W/REFLEX TO CULTURE Specimen Type: URINE No comment entered. Ordering Provider: MIRIAN OSORIO CH Report Released Date/Time: Nov 24, 2023 05:48 PM Reporting Lab: [facility] [address] [facility] [address] Performing Lab: [facility] [address] [facility] [address] URINE COLOR Light-Johnson NOT DEFINED SPECIFIC GRAVITY 1.013 1.003-1.030 UROBILINOGEN [...] 11:15 AM UROGRAM RETROGRADE : GALINA LOYD [id number] -1945 M Exm Date: DEC 16, 2023@11:15 Req Phys: CORBY OSORIO Pat Loc: [facility] GENERAL G2RD (Req'g Img Loc: XRAY (OOS) Service: [place] [address] (Case [id number] COMPLETE) UROGRAM RETROGRADE (RAD Detailed) CPT:91177 Contrast Media : Non-ionic Iodinated Proc Modifiers : OPERATING ROOM EXAM Reason for Study: bilat ureteroscopy laser litho, stent placement Clinical History: calculus of kidney Report Status: Verified Date Reported: DEC 16, 2023 Date Verified: DEC 16, 2023 Fine Artist E-Sig:/VIVIAN/BENJAMÍN PIMENTEL Report: UROGRAM RETROGRADE 12/16/2023 11:15 AM Impression: Fluoroscopy performed during urology service procedure. FINDINGS: Procedure performed with the C-arm fluoroscopy . Fluoroscopy time 55 seconds, dose 9 mGy Fluoroscopic images consistent with history of bilateral ureteroscopy and stent placement. Labels from bilateral [employer] Contour double-J ureteral stents placed on the scanned worksheet Please see procedure note for further details. HISTORY: bilat ureteroscopy laser litho, stent placement, Primary Diagnostic Code: NO IMMEDIATE ATTENTION REQUIRED Primary Interpreting Staff: BENJAMÍN PIMENTEL, Staff Physician (Fine Artist) /BENJAMÍN HYLTON [facility] Pathology Reports: [...] comes from all [place] treatment facilities. Date/Time Pathology Report Provider Source Nov 29, 2023 11:27 AM LR MICROBIOLOGY RE PORT: Reporting Lab: [facility] [CLIA# [id number]] [address] [place] [address] Accession [UID]: [id number] [[id number]] Received: Nov 30, 2023@19:53 Collection sample: URINE CLEAN CATCH Collection date: Nov 29, 2023 11:27 Site/Specimen: URINE Provider: CORBY OSORIO Test(s) ordered: CULTURE,URINE CLEAN CATCH..... completed: Dec 02, 2023 13:00 * BACTERIOLOGY FINAL REPORT => Dec 02, 2023 13:01 TECH CODE: [id number] Bacteriology Remark(s): 12/02/23 50,000-99,000 CFU/mL AT LEAST THREE BACTERIAL TYPES PRESENT INDICATING POSSIBLE CONTAMINATION, PLEASE REPEAT COLLECTION. =--=--=--=--=--=--=--=--=--=--= --=--=--=--=--=--=--=--=--=--=- -=--=--=--=--=-- Performing Laboratory: Bacteriology Report Performed By: SONYA [facility] [CLIA# [id number]] [address] [place] [address] [facility] Encounter Notes: All associated encounter [...] drinking two glasses of whole milk with [place] Breakfast Essentials per day --> reports only [...] fat pads Physical Assessment: Lean Muscle Mass (church, clavicle, shoulder, scapula, interosseous muscle, quadriceps, calf muscle) [X] Evidence of mildly/moderately altered body composition Describe: church Fluid Status: [X] Unable to observe Food Recall: B: blueberry muffin with whipped cream; carnation instant breakfast with whole milk L: continues to skip D: turkey breast, mashed potatoes with butter and gravy, cranberry sauce (other options: omelet with Indonesian muffin, peanut butter and honey) snack: another [...] to two glasses of whole milk with Rockledge Breakfast Essentials per day Nutrition Counseling 1. [...] drinking two glasses of whole milk with [place]ledge Breakfast Essentials per day 2. Pt will aim to consume > 75% of meals Anthropometric Measurement Outcomes 1. Prevent further weight loss and/or gradual weight gain Nutrition-Focused Physical Finding Outcomes 1. Prevent further fat/muscle loss Recommended follow up: 3 months via - please reach out to pt to schedule date/time for follow up. Thank you /vivian/ PURNIMA GANDHI RD,CD CLINICAL DIETITIAN Signed: 12/13/2023 15:10 Receipt Acknowledged By: 12/23/2023 10:12 /vivian/ ADITI GARCIA Health Offc Spec 12/23/2023 ADDENDUM STATUS: COMPLETED TW schedule 3 month f/u on MARCH 13, 2024 @ 2:00PM. Negotiated date and time with spouse. /vivian/ ADITI GARCIA [facility] Spec Signed: 12/23/2023 10:13 PURNIMA GANDHI [facility]
--- OUTSIDE RECORDS SUMMARY | 2024-07-07 22:19 | XMS_ITS ---
[place] ANESTHESIA PRE/POST-OP CONSULT [facility] Encounter Summary Created on: July 07, 2024 GALINA LOYDEN : 1945 Sex: Male Author Name [place] Address [address] [place] [address] Care Team Providers Care Rn First Assistant Name Role Phone RONKYRA Primary Care Provider [...] Patient's Relationship to Policy Ervin [facility] (WNR) MEDICARE ADVANTAGE MCR(W NR) * Aug 23, 2023 [id number] ANNAILSA LOYD ITE PATIENT [facility] (WNR) MEDICARE ADVANTAGE [facility] (WNR) Aug 23, 2020 [id number] [phone] ANNALISA LOYD ITE PATIENT [facility] (WNR) MEDICARE ADVANTAGE [facility](W NR) Aug 23, 2012 [id number] [phone] ANNALISA LOYD PATIENT Selected Encounter This section includes the information on record at [place] for the Encounter. Date/Time Encounter Type Encounter Description Reason Provider Source Dec 15, 2023 10:52 AM Outpatient Encounter ANESTHESIA PRE/POST-OP CONSULT ICD-10-CM I71.40 Abdominal aortic aneurysm, without rupture, unspecified CALLY PRUITT CAREMN Jannette Encounter Template Text not used by [place] Assessments - Encounter Diagnoses This section includes the primary and secondary diagnoses documented for the Encounter. Date/Time Primary/Secondary Diagnosis Diagnosis Name Provider Source Dec 15, 2023 11:02 AM PRIMARY Abdominal aortic aneurysm, without rupture, unspecified KAYLEEN PRUITT [facility] Dec 15, 2023 11:02 AM SECONDARY Essential (primary) hypertension KAYLEEN PRUITT [facility] Dec 15, 2023 11:02 AM SECONDARY Nicotine dependence, cigarettes, uncomplicated KAYLEEN PRUITT [facility] Dec 15, 2023 11:02 AM SECONDARY Oth types of follicular lymphoma, lymph nodes [facility] KAYLEEN PRUITT [facility] Plan of Treatment: Future Appointments (+ 6 months) and Future Tests (+/- 45 days) The Plan of Treatment section includes future care activities for the patient from all [place] [facility] This section includes future appointments and future [...] AM AMBULATORY - SURGERY SONYA GAYLE T [facility] Dec 21, 2023 01:30 PM [place] [facility] Feb 21, 2024 10:15 AM AMBULATORY - NONE [place] [facility] Feb 21, 2024 11:00 AM AMBULATORY - NONE [place] [facility] Mar 18, 2024 12:01 AM AMBULATORY - NONE [place] [facility] Apr 06, 2024 01:00 PM AMBULATORY - NONE [place] [facility] Apr 06, 2024 01:00 PM AMBULATORY - MEDICINE [facility] Apr 10, 2024 01:30 PM AMBULATORY - MEDICINE [facility] Apr 10, 2024 01:31 PM AMBULATORY - NONE [place] [facility] Apr 11, 2024 10:00 AM AMBULATORY - SURGERY [facility] Apr 11, 2024 10:01 AM AMBULATORY - SURGERY SONYA GAYLE T [facility] Apr 21, 2024 10:30 AM AMBULATORY - NONE [place] [facility] May 03, 2024 02:30 PM AMBULATORY - SURGERY [place] [facility] May 04, 2024 10:30 AM AMBULATORY - MEDICINE REINIER GAYLE T [facility] May 04, 2024 11:00 AM AMBULATORY - SURGERY SONYA GAYLE T [facility] May 04, 2024 12:30 PM AMBULATORY - NONE [place] [facility] May 04, 2024 01:00 PM AMBULATORY - SURGERY SONYA GAYLE T [facility] May 08, 2024 02:30 PM AMBULATORY - MEDICINE [facility] May 08, 2024 02:31 PM AMBULATORY - NONE [place] [facility] May 16, 2024 10:00 AM AMBULATORY - SURGERY [facility] Active, Pending, and Scheduled Orders This section includes a listing of several types of active, pending, and scheduled orders, including clinic medications orders, diagnostic test orders, procedure orders and consult orders; where the start date of the order is 45 days before the date of the Encounter or 45 days after the date of theEncounter. The data comes from all [place] treatment facilities. Test Date/Time Test Type Test Details Facility Name January 18, 2024 12:13 PM Consult Order COMMUNITY CARE-NEUROLOGY Cons Shoe Cleaner's Choice [facility] Lab Results: +/- 30 [...] PM Reporting Lab: [facility] [address] [facility] [address] Performing Lab: [facility] [address] [facility] [address] URINE COLOR Light-[place] NOT DEFINED SPECIFIC GRAVITY 1.013 1.003-1.030 UROBILINOGEN [...] CURRENT SMOKER REINIER GAYLE [facility] Dec 08, 2020 08:45 PM VA-TOBACCO [...] Source Nov 18, 2017 ADVANCE DIRECTIVE REBECCARADHA [facility] Jul 08, 2017 ADVANCE DIRECTIVE [...] 11:15 AM UROGRAM RETROGRADE : GALINA LOYD [id number] -1945 M Exm Date: DEC 16, 2023@11:15 Req Phys: CORBY OSORIO QUIÑONES Pat Loc: [facility] GENERAL G2RD (Req'g Img Loc: XRAY (OOS) Service: [place] [facility] [address] (Case [id number] COMPLETE) UROGRAM RETROGRADE (RAD Detailed) CPT:50925 Contrast Media : Non-ionic Iodinated Proc Modifiers : OPERATING ROOM EXAM Reason for Study: bilat ureteroscopy laser litho, stent placement Clinical History: calculus of kidney Report Status: Verified Date Reported: DEC 16, 2023 Date Verified: DEC 16, 2023 Surveillance Systems Analyst E-Sig:/ES/BENJAMÍN PIMENTEL Report: UROGRAM RETROGRADE 12/16/2023 11:15 AM Impression: Fluoroscopy performed during urology service procedure. FINDINGS: Procedure performed with the C-arm fluoroscopy . Fluoroscopy time 55 seconds, dose 9 mGy Fluoroscopic images consistent with history of bilateral ureteroscopy and stent placement. Labels from bilateral [employer] Contour double-J ureteral stents placed on the scanned worksheet Please see procedure note for further details. HISTORY: bilat ureteroscopy laser litho, stent placement, Primary Diagnostic Code: NO IMMEDIATE ATTENTION REQUIRED Primary Interpreting Staff: BENJAMÍN PIMENTEL, Staff Physician (Surveillance Systems Analyst) /BENJAMÍN HYLTON [facility] Pathology Reports: +/- 30 days of [...] the Encounter. The data comes from all [facility] facilities. Date/Time Pathology Report Provider Source Nov 29, 2023 11:27 AM LR MICROBIOLOGY RE PORT: Reporting Lab: [facility] [CLIA# [id number]] [address] [place] [address] Accession [UID]: [id number] [[id number]] Received: Nov 30, 2023@19:53 Collection sample: URINE CLEAN CATCH Collection date: Nov 29, 2023 11:27 Site/Specimen: URINE Provider: CORBY OSORIO Test(s) ordered: CULTURE,URINE CLEAN CATCH..... completed: Dec 02, 2023 13:00 * BACTERIOLOGY FINAL REPORT => Dec 02, 2023 13:01 TECH CODE: [id number] Bacteriology Remark(s): 12/02/23 50,000-99,000 CFU/mL AT LEAST THREE BACTERIAL TYPES PRESENT INDICATING POSSIBLE CONTAMINATION, PLEASE REPEAT COLLECTION. =--=--=--=--=--=--=--=--=--=--= --=--=--=--=--=--=--=--=--=--=- -=--=--=--=--=-- Performing Laboratory: Bacteriology Report Performed By: [facility] [CLIA# [id number]] [address] [place] [address] [facility] Encounter Notes: All associated encounter notes This section contains the clinical notes associated to the Encounter. Date/Time Encounter Note(s) Provider Source Dec 15, 2023 10:53 AM ANESTHESIOLOGY PRE OPERATIVE E & M NOTE: LOCAL TITLE: Pre Op Note/Anesthesia STANDARD TITLE: ANESTHESIOLOGY PRE OPERATIVE E & M NOTE DATE OF NOTE: DEC 15, 2023@10:53 ENTRY DATE: DEC 15, 2023@10:53:10 AUTHOR: EDEL PRUITT EXP COSIGNER: URGENCY: STATUS: COMPLETED I. [...] Injury due to chemical exposure (SNOMED CT [id number]) PMHx/Review of Systems: Abnormal Respiratory Findings: Other [...] STATUS: COMPLETED Procedure: Arterial Duplex Exam Registered Severity Of Illness Coordinator: ALETHEA TREJO Ordering Provider: NATY WONG Indication [...]
--- OUTSIDE RECORDS SUMMARY | 2024-07-07 22:19 | XMS_ITS ---
Author Name [place] Address [address] [place] [address] Care Team Providers Care Shoemaking Cutter Name Role Phone KYRA VELASQUEZ Primary Care [...] [facility] ([facility] MEDIC[facility] ADVANTAGE MCR(W NR) * Aug 23, 2023 [id number] ANNALISA LOYD ITE PATIENT [facility] (WNR) MEDICARE ADVANTAGE [facility] (WNR) Aug 23, 2020 [id number] [phone] ANNALISA LOYD ITE PATIENT [facility] (WNR) MEDICARE [facility](W NR) Aug 23, 2012 [id number] ANNALISA LOYD ITE PATIENT Selected Encounter [...] activities for the patient from all [place] [facility] [place] [facility]. This section includes future appointments and [...] SURGERY [place] [facility] Nov 04, 2023 09:30 AM AMBULATORY - [place]GERY [place] [facility] Nov 29, 2023 11:30 AM AMBULATORY - NONE [facility] Dec 10, 2023 02:00 PM AMBULATORY - [place]GERY [place] [facility] Dec 13, 2023 02:30 PM AMBULATORY - MEDICINE [facility] Dec 13, 2023 02:31 PM AMBULATORY - NONE [place] [facility] Dec 16, 2023 08:00 AM AMBULATORY - [place]GERY [place] [facility] Dec 21, 2023 01:30 PM AMBULATORY - [place]GERY [place] [facility] Feb 21, 2024 10:15 AM AMBULATORY - NONE [place] [facility] Feb 21, 2024 11:00 AM AMBULATORY - NONE [place] [facility] Mar 18, 2024 12:01 AM AMBULATORY - NONE [place] [facility] Apr 06, 2024 01:00 PM AMBULATORY - NONE [place] [facility] Apr 06, 2024 01:00 PM AMBULATORY - MEDICINE [facility] Apr 10, 2024 01:30 PM AMBULATORY - MEDICINE [facility] Apr 10, 2024 01:31 PM AMBULATORY - NONE [place] [facility] Apr 11, 2024 10:00 AM AMBULATORY - SURGERY [facility] Apr 11, 2024 10:01 AM [place]ORY [place] [facility] Apr 21, 2024 10:30 AM AMBULATORY - NONE [place] [facility] Social History: Smoking Status (Most current) and [...] The data comes from all [facility]. Date Advance Directives Provider Source Nov 18, [...] & PELVIS WI THOUT CONTRAST: GALINA LOYD [id number] -1945 M Exm Date: OCT 22, 2023@04:45 Req Phys: TODD SANTAMARIA Pat Loc: OUTSIDE [facility] CT SCAN (Req'g Loc Img Loc: OUTSIDE [facility] CT SCAN Service: Unknown (Case [id number] COMPLETE) CT ABD & PELVIS WITHOUT CONTRAST (CT Detailed) CPT:50050 Reason for Study: Exam imported from outside Clinical History: Original Data for Imported Study Patient Name: GALINA LOYD Date: 1945 Sex: M Study Date: 10/22/23 Study Time: 04:45:59 Study Description: CT ABDOMEN AND PELVIS WO CONTRAST Referring Physician: JONN NAVARRETE JR Series 1: 1 CT file, description: Termite Exterminator LAT Series 2: 1 CT file, description: Termite Exterminator AP Series 3: 1 CT file, description: Patient Protocol Series 4: 156 CT files, description: STD WO F_0.6 Series 5: 778 CT files, description: STD THN WO F_0.6 Series 6: 88 CT files, description: COR 3 WO F_0.6 Series 7: 115 CT files, description: SAG 3 WO F_0.6 Series 8: 2 UT files, description: [id number] Series 9: 1 KO file, description: [id number] Report Status: Electronically Filed Date Reported: NOV 26, 2023 Report: RADIOLOGY PROCEDURE: N O T I C E: SCANNED IN EXAM THIS EXAMINATION WAS PERFORMED AND INTERPRETED AT A NON-[place] FACILITY. To view the Images or report (if a report was included with the images), select the [employer] Tools Menu and choose the Image Display (Viewer) option. Impression: RADIOLOGY PROCEDURE: N O T I C E: SCANNED IN EXAM THIS EXAMINATION WAS PERFORMED AND INTERPRETED AT A NON-[place] FACILITY. To view the Images or report (if a report was included with the images), select the [employer]S Tools Menu and choose the Image Display (Viewer) option. VERIFIED BY: / *ELECTRONICALLY FILED* SONYA PINON [facility] Encounter Notes: All associated encounter notes This section contains the clinical notes associated to the Encounter. Date/Time Encounter Note(s) Provider Source Oct 22, 2023 12:00 PM NONVA CONSULT: LOCAL TITLE: [facility] CONSULT RESULT NOTE STANDARD TITLE: NONVA CONSULT DATE OF NOTE: OCT 22, 2023@12:00 ENTRY DATE: DEC 01, 2023@08:23:45 AUTHOR: KALE WARREN EXP COSIGNER: URGENCY: STATUS: COMPLETED VistA Imaging - Scanned Document Consult / Referral: Apr 22 (c) [facility]-UROLOGY Cons Consult # [id number] Date of Service (Procedure/Event): 10/22/[address] Abdomen & Pelvis wo Contrast Reason for Imaging: nephrolithiasis s/p right PCNL to evaluate post-op stone burden Ordering Provider: Jonn Navarrete MD SCANNED DOCUMENT SIGNATURE NOT REQUIRED Electronically Filed: 12/01/2023 by: KALE WARREN BA, RN CNOR Registered Nurse KALE WARREN [facility]
--- OUTSIDE RECORDS SUMMARY | 2024-07-07 22:19 | XMS_ITS | Encounter Summary ---
Author Name [facility] [place] Organization [place] Address [address] [place] [address] Care Team Providers Care Barn Boss Name Role Phone KYRA VELASQUEZ Primary [...] Ervin [facility] (WNR) MEDICARE ADVANTAGE MCR(W NR) * Aug 23, 2023 [id number] ANNALISA LOYD ITE PATIENT [facility] (WNR) MEDICARE ADVANTAGE [facility] (WNR) Aug 23, 2020 [id number] [phone] ANNALISA LOYD ITE PATIENT [facility] (WNR) MEDICARE [facility](W NR) Aug 23, 2012 [id number] ANNALISA LOYD ITE PATIENT Selected Encounter [...] activities for the patient from all [place] treatmentfa[place] healthities. This section includes future appointments and [...] PM AMBULATORY - [place] [facility] Dec 13, 2023 02:30 PM AMBULATORY - MEDICINE [facility] Dec 13, 2023 02:31 PM AMBULATORY - NONE [place] [facility] Dec 16, 2023 08:00 AM AMBULATORY [place] [facility] Dec 21, 2023 01:30 PM AMBULATORY [place]GERY [place] [facility] Feb 21, 2024 10:15 AM AMBULATORY - NONE [place] [facility] Feb 21, 2024 11:00 AM AMBULATORY - NONE [place] [facility] Mar 18, 2024 12:01 AM AMBULATORY - NONE [place] [facility] Apr 06, 2024 01:00 PM AMBULATORY - NONE [place] [facility] Apr 06, 2024 01:00 PM AMBULATORY - MEDICINE [facility] Apr 10, 2024 01:30 PM AMBULATORY - MEDICINE [facility] Apr 10, 2024 01:31 PM AM[place]ULATORY - [place]ONE [place] [facility] Apr 11, 2024 10:00 AM AMBULATORY - SURGERY [facility] Apr 11, 2024 10:01 AM [place]BUL[place]ORY [place] [facility] Apr 21, 2024 10:30 AM AMBULATORY - NONE [place] [facility] May 03, 2024 02:30 PM AMBULATORY [place] [facility] May 04, 2024 10:30 AM [place] [facility] May 04, 2024 11:00 AM AMBULATORY - SURGERY [place] [facility] May 04, 2024 12:30 PM AMBULATORY - NONE [place] [facility] May 04, 2024 01:00 PM AMBULATORY - SURGERY [facility] Lab Results: +/- 30 [...] Range Comment Nov 29, 2023 11:27 AM [facility] URINALYSIS W/REFLEX TO CULTURE Specimen Type: URINE No comment entered. Ordering Provider: MIRIAN OSORIO CH Report Released Date/Time: Nov 24, 2023 05:48 PM Reporting Lab: [facility] [address] [facility] [address] Performing Lab: [facility] [address] [facility] [address] URINE COLOR [place] NOT DEFINED SPECIFIC GRAVITY 1.013 1.003-1.030 UROBILINOGEN [...] 11:15 AM UROGRAM RETROGRADE : GALINA LOYD [id number] -1945 M Exm Date: DEC 16, 2023@11:15 Req Phys: CORBY OSORIO Pat Loc: [facility] GENERAL G2RD (Req'g Img Loc: XRAY (OOS) Service: [place] [place] [address] (Case [id number] COMPLETE) UROGRAM RETROGRADE (RAD Detailed) CPT:49224 Contrast Media : Non-ionic Iodinated Proc Modifiers [...] ureteroscopy and stent placement. Labels from bilateral [employer] Contour double-J ureteral stents placed on the scanned worksheet Please see procedure note for further details. HISTORY: bilat ureteroscopy laser litho, stent placement, Primary Diagnostic Code: NO IMMEDIATE ATTENTION REQUIRED Primary Interpreting Staff: BENJAMÍN PIMENTEL, Staff Physician (Miah) /BENJAMÍN HYLTON [facility] Pathology Reports: +/- 30 days of [...] PORT: Reporting Lab: [facility] [CLIA# [id number]] [address] [place] [address] Accession [UID]: [id number] [[id number]] Received: Nov 30, 2023@19:53 Collection sample: URINE CLEAN CATCH Collection date: Nov 29, 2023 11:27 Site/Specimen: URINE Provider: CORBY OSORIO Test(s) ordered: CULTURE,URINE CLEAN CATCH..... completed: Dec 02, 2023 13:00 * BACTERIOLOGY FINAL REPORT => Dec 02, 2023 13:01 TECH CODE: [id number] Bacteriology Remark(s): 12/02/23 50,000-99,000 CFU/mL AT LEAST THREE BACTERIAL TYPES PRESENT INDICATING POSSIBLE CONTAMINATION, PLEASE REPEAT COLLECTION. =--=--=--=--=--=--=--=--=--=--= --=--=--=--=--=--=--=--=--=--=- -=--=--=--=--=-- Performing Laboratory: Bacteriology Report Performed By: SONYA PINON [facility] [CLIA# [id number]] [address] [place] [address] [facility] Encounter Notes: All associated encounter notes This section contains the clinical notes associated to the Encounter. Date/Time Encounter Note(s) Provider Source Dec 01, 2023 12:00 PM NONVA NOTE: LOCAL TITLE: COMMUNITY CARE-REQUEST FOR SERVICE NOTE STANDARD TITLE: NONVA NOTE DATE OF NOTE: DEC 01, 2023@12:00 ENTRY DATE: DEC 01, 2023@08:21:07 AUTHOR: KALE WARREN EXP COSIGNER: URGENCY: STATUS: COMPLETED [facility] CARE-REQUEST FOR SERVICE NOTE Has ADDENDA [facility] - Scanned Document Request for Community Care-[place] [facility] Adan Nav[place]re[place] ICD-10: N20.0, Calculus of [...] is scheduled for procedure with [facility] at [facility]. RFS consult not entered. /huber SAUNDERS RN Signed: 12/01/2023 10:52 Receipt Acknowledged By: 12/01/2023 11:53 /vivian/ KALE WARREN BA, RN CNOR Registered Nurse 12/01/2023 ADDENDUM STATUS: COMPLETED Denial letter will be written and faxed to [facility] to advise that the will receive this care at the [facility]. /vivian/ KALE WARREN BA, RN CNOR Registered Nurse Signed: 12/01/2023 11:54 KALE WARREN [facility] Dec 01, 2023 10:49 AM ADDENDUM: LOCAL TITLE: Addendum STANDARD TITLE: ADDENDUM DATE OF NOTE: DEC 01, 2023@10:49:33 ENTRY DATE: DEC 01, 2023@10:49:35 AUTHOR: CAROLYN SAUNEDRS EXP COSIGNER: URGENCY: STATUS: COMPLETED Urology spoke with Veterans , is scheduled for procedure with [facility] at [facility]. RFS consult not entered. /huber SAUNDERS RN Signed: 12/01/2023 10:52 Receipt Acknowledged By: 12/01/2023 11:53 /vivian/ KALE WARREN BA, RN CNOR Registered Nurse --- Original Document --- 12/01/23 COMMUNITY CARE-REQUEST FOR SERVICE NOTE: [facility] - Scanned Document Request for Community Care-Urology [place] [facility] Adan Navarrete ICD-10: N20.0, Calculus of [...] not VIEW this UNSIGNED Addendum. CAROLYN SAUNDERS [facility] Dec 01, 2023 08:25 AM ADDENDUM: LOCAL TITLE: Addendum STANDARD TITLE: ADDENDUM DATE OF NOTE: DEC 01, 2023@08:25:04 ENTRY DATE: DEC 01, 2023@08:25:05 AUTHOR: KYRA VELASQUEZ COSIGNER: URGENCY: STATUS: COMPLETED please place requested [facility] urology /es/ KYRA VELASQUEZ M.D Signed: 12/01/2023 08:25 Receipt Acknowledged By: 12/01/2023 10:49 /huber SAUNDERS RN --- Original Document --- 12/01/23 COMMUNITY CARE-REQUEST FOR SERVICE NOTE: [facility] - Scanned Document Request for Community Care-Urology [place] [facility] Adan Navarrete ICD-10: N20.0, Calculus of kidney [place] recommended for diagnostic cystoureteroscopy with lithotripsy and [...] not VIEW this UNSIGNED Addendum. KYRA VELASQUEZ [facility]
--- OUTSIDE RECORDS SUMMARY | 2024-07-07 22:19 | XMS_ITS | Encounter Summary ---
Author Name [facility] [place] [facility] [place] [facility] [place] Address [address] [place] [address] Care Team Providers Care Log Check Scaler Name Role Phone KYRA VELASQUEZ Primary Care [...] Patient's Relationship to Policy Ervin [facility] (WNR) MEDICARE ADVANTAGE [facility](W NR) * Aug 23, 2023 [id number] ANNALISA LOYD ITE PATIENT [facility] (WNR) MEDICARE ADVANTAGE [facility] (WNR) Aug 23, 2020 [id number] [phone] ANNALISA LOYD ITE PATIENT [facility] (WNR) MEDICARE ADVANTAGE [facility](W NR) Aug 23, 2012 [id number] ANNALISA LOYD ITE PATIENT Selected Encounter This section includes the information on record at [place] for the Encounter. Date/Time Encounter Type Encounter Description Reason Provider Source Dec 10, 2023 02:00 PM OFF/OP EST MAY X REQ PHY/QHP TELEPHONE/SURGERY ICD-10-CM Z01.818 Encounter for other preprocedural examination TIANNA CARR [facility] Encounter Template Text not used by VA Assessments - Encounter Diagnoses This section includes the primary and secondary diagnoses documented for the Encounter. Date/Time Primary/Secondary Diagnosis Diagnosis Name Provider Source Dec 10, 2023 02:00 PM PRIMARY Encounter for other preprocedural examination TIANNA CARR [place] [facility] Plan of Treatment: Future Appointments (+ 6 [...] - NONE [place] [facility] Dec 16, 2023 08:00 AM AMBULATORY - SURGERY [place] [facility] Dec 21, 2023 01:30 PM AMBULATORY - SURGERY [place] [facility] Feb 21, 2024 10:15 AM AMBULATORY - NONE [place] [facility] Feb 21, 2024 11:00 AM AMBULATORY - NONE [place] [facility] Mar 18, 2024 12:01 AM AM[place]ULATORY - NONE [place] [facility] Apr 06, 2024 01:00 PM AM[place]ULATORY - [place]ONE [place] [facility] Apr 06, 2024 01:00 PM [facility] Apr 10, 2024 01:30 PM AMBULATORY - MEDICINE [facility] Apr 10, 2024 01:31 PM AMBULATORY - NONE [place] [facility] Apr 11, 2024 10:00 AM AMBULATORY - SURGERY [facility] Apr 11, 2024 10:01 AM AMBULATORY - [place]GERY [place] [facility] Apr 21, 2024 10:30 AM AMBULATORY - NONE [place] [facility] May 03, 2024 02:30 PM AMBULATORY - SURGERY [facility] [facility] May 04, 2024 10:30 AM AMBULATORY - MEDICINE [facility] May 04, 2024 11:00 AM AMBULATORY - SURGERY [facility] [place] [facility] May 04, 2024 12:30 PM AMBULATORY - NONE [facility]YA [place] [facility] May 04, 2024 01:00 PM AMBULATORY - SURGERY [facility] [place] [facility] May 08, 2024 02:30 PM AMBULATORY - MEDICINE [facility] Active, Pending, and Scheduled [...] 12:13 PM Consult Order COMMUNITY CARE-NEUROLOGY Cons Tire Balancer's Choice [facility] [place] [facility] Lab Results: +/- 30 [...] Lab: [facility] [place] [facility] [address] [facility] [address] Performing Lab: [facility] [place] [facility] [address] [facility] [place] [facility] [address] URINE COLOR [place] NOT DEFINED SPECIFIC GRAVITY 1.013 1.003-1.030 UROBILINOGEN [...] PM CURRENT SMOKER [facility] Tobacco Use History This section includes a [...] PM CURRENT SMOKER [facility] Dec 08, 2020 08:45 PM VA-TOBACCO USER [...] 11:15 AM UROGRAM RETROGRADE : GALINA LOYD [id number] -1945 M Exm Date: DEC 16, 2023@11:15 Req Phys: CORBY OSORIO Pat Loc: [facility] G2RD (Req'g Img Loc: XRAY (OOS) Service: [place] [address] (Case [id number] COMPLETE) UROGRAM RETROGRADE (RAD Detailed) CPT:27424 Contrast Media : Non-ionic Iodinated Proc Modifiers : OPERATING ROOM EXAM Reason for Study: bilat ureteroscopy laser litho, stent placement Clinical History: calculus of kidney Report Status: Verified Date Reported: DEC 16, 2023 Date Verified: DEC 16, 2023 Emergency Vehicle Operations Instructor E-Sig:/VIVIAN/BENJAMÍN PIMENTEL Report: UROGRAM RETROGRADE 12/16/2023 11:15 AM Impression: Fluoroscopy performed during urology service procedure. FINDINGS: Procedure performed with the C-arm fluoroscopy . Fluoroscopy time 55 seconds, dose 9 mGy Fluoroscopic images consistent with history of bilateral ureteroscopy and stent placement. Labels from bilateral [employer] Contour double-J ureteral stents placed on the scanned worksheet Please see procedure note for further details. HISTORY: bilat ureteroscopy laser litho, stent placement, Primary Diagnostic Code: NO IMMEDIATE ATTENTION REQUIRED Primary Interpreting Staff: BENJAMÍN PIMENTEL, Staff Physician (Emergency Vehicle Operations Instructor) /BENJAMÍN HYLTON [place] [facility] Pathology Reports: +/- 30 days of the [...] MICROBIOLOGY RE PORT: Reporting Lab: S[facility]YA [facility] [CLIA# [id number]] [address] [place] [address] Accession [UID]: [id number] [[id number]] Received: Nov 30, 2023@19:53 Collection sample: URINE CLEAN CATCH Collection date: Nov 29, 2023 11:27 Site/Specimen: URINE Provider: CORBY OSORIO Test(s) ordered: CULTURE,URINE CLEAN CATCH..... completed: Dec 02, 2023 13:00 * BACTERIOLOGY FINAL REPORT => Dec 02, 2023 13:01 TECH CODE: [id number] Bacteriology Remark(s): 12/02/23 50,000-99,000 CFU/mL AT LEAST THREE BACTERIAL TYPES PRESENT INDICATING POSSIBLE CONTAMINATION, PLEASE REPEAT COLLECTION. =--=--=--=--=--=--=--=--=--=--= --=--=--=--=--=--=--=--=--=--=- -=--=--=--=--=-- Performing Laboratory: Bacteriology Report Performed By: SONYA GAY[place] [facility] [CLIA# [id number]] [address] [place] [address] [facility] Encounter Notes: All associated [...] NOK: MARIE LOYD Relation: [address] [place], [place] [address] Secondary NOK: PASQUALE LOYD Relation: EXTENDED FAMILY M <street address not available> [place], [place] Responsible Adult Victim Witness Administrator: MARIE LOYD () Waiting at [facility]? TBA If no, Contact #: Are you riding with [employer] ([employer])? No (if Yes, alert Khurram [...] BATHING, DRESSING PRN Living Will/Durable Power of Party Plan Sales Director: YES Info. Given: NO Tenriism:SABIANISM Mentation/Behavior: Awake,Alert,Oriented SUBSTANCE USE Current Alcohol Use: [...] SHOULDER (HEALING)AWAITING P.T; DENIES RESTRICTIONS PER CT @[facility] 05/2022: CENTRILOBULAR EMPHYSEMA CALCIFIED ATHEROSCLEROTIC DISEASE, INCLUDING [...] AORTA Skin Intact:YES Heart Disease: NO Previous MD:NO Angina/CP:NO If Yes, Last Episode: DENIES Lung [...] STENT PLACEMENT) STONE EXTRACTION, LASER, STENT 10/21/23 ([facility]) BILATERAL URETEROSCOPY STENT PLACEMENT - CYSTO/URETERO W/LITHOTRIPSY [...] SURGERY AGE 16 COLONOSCOPY CURRENT MEDICATIONS:PER Patient ([facility]) 1) ATORVASTATIN CALCIUM 40MG TAB TAKE [...] valuables/appropriate clothing Must have a responsible Adult Victim Witness Administrator All patient questions answered: Patient verbalizes understanding of Planned Procedure and Pre-op instructions given. Questions answered. Yes /vivian/ TIANNA CARR E[employer]MENTARY SCHOOL DIRECTOR Signed: 12/10/2023 14:14 ITANNA CARR [facility]
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
--- OUTSIDE RECORDS SUMMARY | 2024-07-07 22:19 | XMS_ITS | Encounter Summary ---
Author Name Department of Veter[place] Organization Department of [place] Address [address] [place] [address] Care Team Providers Care Cpas Name Role Phone KYRA VELASQUEZ Primary Care [...] Patient's Relationship to Policy Ervin [facility] (WNR) MEDICARE ADVANTAGE [facility](W NR) * Aug 23, 2023 [id number] ANNALISA EDUARDO ITE PATIENT [facility] (WNR) MEDICARE ADVANTAGE [facility] (WNR) Aug 23, 2020 [id number] [phone] ANNALISA EDUARDO ITE PATIENT [facility] (WNR) MEDICARE [facility](W NR) Aug 23, 2012 [id number] [phone] ANNALISA EDUARDO ITE PATIENT Selected Encounter [...] activities for the patient from all [place] [facility]. This section includes future appointments and future [...] PM AMBULATORY - [place] [facility] Dec 13, 2023 02:30 PM AMBULATORY - MEDICINE [facility] Dec 13, 2023 02:31 PM AM[place]ULATORY - NONE [place] [facility] Dec 16, 2023 08:00 AM AMBULATORY - [place] [facility] Dec 21, 2023 01:30 PM AMBULATORY - SURGERY [place] [facility] Feb 21, 2024 10:15 AM AMBULATORY - NONE [place] [facility] Feb 21, 2024 11:00 AM AMBULATORY - NONE [place] [facility] Mar 18, 2024 12:01 AM AMBULATORY - [place]ONE [place] [facility] Apr 06, 2024 01:00 PM AMBULATORY - [place]ONE [place] [facility] Apr 06, 2024 01:00 PM AMBULATORY - MEDICINE [facility] Apr 10, 2024 01:30 PM AMBULATORY - MEDICINE [facility] Apr 10, 2024 01:31 PM [place]ULATORY - [place]ONE [place] [facility] Apr 11, 2024 10:00 AM AMBULATORY - SURGERY [facility] Apr 11, 2024 10:01 AM AMBUL[place]ORY [place] [facility] Apr 21, 2024 10:30 AM AMBULATORY - NONE [place] [facility] May 03, 2024 02:30 PM AMBULATORY - [place]GERY [place] [facility] May 04, 2024 10:30 AM [place] [facility] May 04, 2024 11:00 AM AMBULATORY - [place]GERY [place] [facility] May 04, 2024 12:30 PM AM[place]ATORY - [place]ONE [place] [facility] May 04, 2024 01:00 PM AMBULATORY - SURGERY [facility] Lab Results: +/- 30 [...] Reporting Lab: [facility] [address] [facility] [address] Performing Lab: [facility] [address] [facility] [address] URINE COLOR Light-Nunn NOT DEFINED SPECIFIC GRAVITY 1.013 1.003-1.030 UROBILINOGEN [...] 2021 02:27 PM CURRENT SMOKER REINIER Bhatia [facility] Tobacco Use History [...] 2021 02:41 PM CURRENT SMOKER REINIER GAYLE [facility] Dec 08, 2020 08:45 PM VA-TOBACCO [...] 11:15 AM UROGRAM RETROGRADE : GALINA EDUARDO [id number] -1945 M Exm Date: DEC 16, 2023@11:15 Req Phys: CORBY OSORIO Pat Loc: [facility] GENERAL G2RD (Req'g Img Loc: XRAY (OOS) Service: [place] [facility] [address] (Case [id number] COMPLETE) UROGRAM RETROGRADE (RAD Detailed) CPT:47655 Contrast Media : Non-ionic Iodinated Proc Modifiers [...] ureteroscopy and stent placement. Labels from bilateral [employer] Contour double-J ureteral stents placed on the scanned worksheet Please see procedure note for further details. HISTORY: bilat ureteroscopy laser litho, stent placement, Primary Diagnostic Code: NO IMMEDIATE ATTENTION REQUIRED Primary Interpreting Staff: BENJAMÍN PIMENTEL, Staff Physician (Miah) /BENJAMÍN HYLTON [facility] Pathology Reports: +/- 30 days of [...] comes from all [place] treatment facilities. Date/Time Pathology Report Provider Source Nov 29, 2023 11:27 AM LR MICROBIOLOGY RE PORT: Reporting Lab: [facility] [CLIA# [id number]] [address] [place] [address] Accession [UID]: [id number] [[id number]] Received: Nov 30, 2023@19:53 Collection sample: URINE CLEAN CATCH Collection date: Nov 29, 2023 11:27 Site/Specimen: URINE Provider: CORBY OSORIO Test(s) ordered: CULTURE,URINE CLEAN CATCH..... completed: Dec 02, 2023 13:00 * BACTERIOLOGY FINAL REPORT => Dec 02, 2023 13:01 TECH CODE: [id number] Bacteriology Remark(s): 12/02/23 50,000-99,000 CFU/mL AT LEAST THREE BACTERIAL TYPES PRESENT INDICATING POSSIBLE CONTAMINATION, PLEASE REPEAT COLLECTION. =--=--=--=--=--=--=--=--=--=--= --=--=--=--=--=--=--=--=--=--=- -=--=--=--=--=-- Performing Laboratory: Bacteriology Report Performed By: [facility] [CLIA# [id number]] [address] [place] [address] [facility] Encounter Notes: All associated encounter notes This section contains the clinical notes associated to the Encounter. Date/Time Encounter Note(s) Provider Source Dec 01, 2023 11:56 AM LETTERS: LOCAL TITLE: [facility]-REQUEST FOR SERVICES (RFS) LETTER STANDARD TITLE: LETTERS DATE OF NOTE: DEC 01, 2023@11:56 ENTRY DATE: DEC 01, 2023@11:56:29 AUTHOR: KALE SANTOS EXP COSIGNER: URGENCY: STATUS: COMPLETED December 01, 2023 [facility] Urology Dr. Adan Navarrete [address] [place] [address] Dear Provider, [place] Information: Patient Name: Galina Eduardo Date of : 1945 [facility] Office of [facility] has received the request for [facility] Urology from you for services that were not originally authorized in the [facility] Administration for this . Upon review, the following determination has been made: Request is denied: Service will be provided by the [place] Medical Facility under the [place] Provider's name. If you have sent this , via referral, to a sub-specialist for this care please notify the sub-specialty provider and the explaining that the [place] will not be covering the visit. Should you have questions, please contact us at [phone] to speak with a patient hotel services sales representative. As a reminder, if applicable, return medical records within 30 days for routine services. Sincerely, Kale Santos RN Clinical Director [facility] Office of [address] [place] [address] ext. [phone] [facility]
--- OUTSIDE RECORDS SUMMARY | 2024-07-07 22:19 | XMS_ITS | Encounter Summary ---
Author Name [place] Organization [place] Address [address] [place] [address] Care Team Providers Care Wool Hat Hydraulicker Name Role Phone RON KYRA Primary Care [...] Patient's Relationship to Policy Ervin [facility] (WNR) MEDICARE [facility](W NR) * Aug 23, 2023 [id number] ANNALISA LOYD ITE PATIENT [facility] (WNR) MEDICARE ADVANTAGE [facility] (WNR) Aug 23, 2020 [id number] [phone] ANNALISA LOYD ITE PATIENT [facility] (WNR) MEDICARE ADVANTAGE [facility](W NR) Aug 23, 2012 [id number] ANNALISA LOYD PATIENT Selected Encounter This section includes the information on record at [place] for the Encounter. Date/Time Encounter Type Encounter Description Reason Provider Source Dec 15, 2023 01:30 PM HC PRO PHONE CALL 5-10 MIN TELEPHONE/MEDICIN E ICD-10-CM Z01.818 Encounter for other preprocedural examination TIFFANIEEARLWENDI Jannette FARTUN Encounter Template Text not used by [place] Assessments - Encounter Diagnoses This section includes the primary and secondary diagnoses documented for the Encounter. Date/Time Primary/Secondary Diagnosis Diagnosis Name Provider Source Dec 15, 2023 01:30 PM PRIMARY Encounter for other preprocedural examination SHAHZAD LUX [facility] Plan of Treatment: Future Appointments (+ 6 months) and Future Tests (+/- 45 days) The Plan of Treatment section includes future care activities for the patient from all [place] [facility]. This section includes future appointments [...] AMBULATORY - [place]IC[place] [facility] May 04, 2024 11:00 AM AMBULATORY - SURGERY SONYA GAYLE [facility] May 04, 2024 12:30 PM AMBULATORY - NONE SONYA LAI [facility] May 04, 2024 01:00 PM AMBULATORY - SURGERY [facility] May 08, 2024 02:30 PM AMBULATORY - MEDICINE [facility] May 08, 2024 02:31 PM AMBULATORY - NONE SONYA LAI Tobi [facility] May 16, 2024 10:00 [...] 12:13 PM Consult Order COMMUNITY CARE-NEUROLOGY Cons Butter Printer's Choice [facility] Lab Results: +/- 30 days of the encounter This section includes the Chemistry and Hematology Lab Results on record with [place] for the patient. Radiology Reports and Pathology [...] Reporting Lab: [facility] [address] [facility] [address] Performing Lab: [facility] [address] [facility] [address] URINE COLOR Light-Bolivar NOT DEFINED SPECIFIC GRAVITY 1.013 1.003-1.030 UROBILINOGEN [...] 2021 02:41 PM CURRENT SMOKER REINIER Bhatia [facility] Dec 08, 2020 08:45 [...] 11:15 AM UROGRAM RETROGRADE : GALINA LOYD [id number] -1945 M Exm Date: DEC 16, 2023@11:15 Req Phys: CORBY OSORIO Pat Loc: [facility] GENERAL G2RD (Req'g Img Loc: XRAY (OOS) Service: [place] [address] (Case [id number] COMPLETE) UROGRAM RETROGRADE (RAD Detailed) CPT:29934 Contrast Media : Non-ionic Iodinated Proc Modifiers : OPERATING ROOM EXAM Reason for Study: bilat ureteroscopy laser litho, stent placement Clinical History: calculus of kidney Report Status: Verified Date Reported: DEC 16, 2023 Date Verified: DEC 16, 2023 Senior Mechanical Project Manager E-Sig:/VIVIAN/BENJAMÍN PIMENTEL Report: UROGRAM RETROGRADE 12/16/2023 11:15 AM Impression: Fluoroscopy performed during urology service procedure. FINDINGS: Procedure performed with the C-arm fluoroscopy . Fluoroscopy time 55 seconds, dose 9 mGy Fluoroscopic images consistent with history of bilateral ureteroscopy and stent placement. Labels from bilateral [employer] Contour double-J ureteral stents placed on the scanned worksheet Please see procedure note for further details. HISTORY: bilat ureteroscopy laser litho, stent placement, Primary Diagnostic Code: NO IMMEDIATE ATTENTION REQUIRED Primary Interpreting Staff: BENJAMÍN PIMENTEL, Staff Physician (Senior Mechanical Project Manager) /BENJAMÍN HYLTON [facility] Pathology Reports: +/- 30 days [...] PORT: Reporting Lab: SONYA GAYLE [facility] [CLIA# [id number]] [address] [place] [address] Accession [UID]: [id number] [[id number]] Received: Nov 30, 2023@19:53 Collection sample: URINE CLEAN CATCH Collection date: Nov 29, 2023 11:27 Site/Specimen: URINE Provider: CORBY OSORIO Test(s) ordered: CULTURE,URINE CLEAN CATCH..... completed: Dec 02, 2023 13:00 * BACTERIOLOGY FINAL REPORT => Dec 02, 2023 13:01 TECH CODE: [id number] Bacteriology Remark(s): 12/02/23 50,000-99,000 CFU/mL AT LEAST THREE BACTERIAL TYPES PRESENT INDICATING POSSIBLE CONTAMINATION, PLEASE REPEAT COLLECTION. =--=--=--=--=--=--=--=--=--=--= --=--=--=--=--=--=--=--=--=--=- -=--=--=--=--=-- Performing Laboratory: Bacteriology Report Performed By: SONYA GAYLE [facility] [CLIA# [id number]] [address] [place] [address] [facility] Encounter Notes: All associated encounter notes This section contains the clinical notes associated to the Encounter. Date/Time Encounter Note(s) Provider Source Dec 15, 2023 01:30 PM NURSING TELEPHONE ENCOUNTER NOTE: LOCAL TITLE: TELEPHONE CALL SAME DAY PRE-PROCEDURE STANDARD TITLE: NURSING TELEPHONE ENCOUNTER NOTE DATE OF NOTE: DEC 15, 2023@13:30 ENTRY DATE: DEC 15, 2023@13:30:18 AUTHOR: SHAHZAD LUX COSIGNER: URGENCY: STATUS: COMPLETED Procedure to be done with Anesthesia. ARRIVIAL TIME: 1015 Procedure Date: Nov Procedure: uretroscopy SURGEON/PROCEDURALIST: Da Outpatient TIN POURER REQUIRED :Yes Name: Kinue In the last [...] valuables/appropriate clothing Must have a responsible Adult Breed To Wean Production Technician All patient questions answered: Spoke with Darrel over the phone. Time:1331 Left Voice mail on number: . Time: PACU [place] number, , provided for Vet to call back with any questions or concerns. Confirmed that the patient has received home COVID testing kit; obtained 72 -hour result if patient has completed testing at the time of call /vivian/ SHAHZAD LUX Registered Nurse Signed: 12/15/2023 13:33 SHAHZAD LUX [facility]
--- OUTSIDE RECORDS SUMMARY | 2024-07-07 22:20 | XMS_ITS | Encounter Summary ---
Author Name [place] Address [address] [place] [address] Care Team Providers Care Assembly Hand Name Role Phone KYRA VELASQUEZ Primary [...] Name Patient's Relationship to Policy Ervin [facility] (WNR) MEDICARE ADVANTAGE MCR(W NR) * Aug 23, 2023 [id number] ANNALISA LOYD ITE PATIENT [facility] (WNR) MEDICARE ADVANTAGE [facility] (WNR) Aug 23, 2020 [id number] [phone] ANNALISA LOYD ITE PATIENT [facility] (WNR) MEDICARE [facility](W NR) Aug 23, 2012 [id number] ANNALISA LOYD ITE PATIENT Selected Encounter This section includes the information on record at [place] for the Encounter. Date/Time Encounter Type Encounter Description Reason Provider Source December 22, 2023 10:47 AM Outpatient Encounter TELEPHONE TRIAGE SEE WRIGHT E Encounter Template Text not used by [place] Plan of Treatment: Future Appointments (+ 6 [...] [place] [facility] May 03, 2024 02:30 PM AM[place]UL[place]ORY [place] [facility] May 04, 2024 10:30 AM [place] [facility] May 04, 2024 11:00 AM [place]UL[place] [facility] May 04, 2024 12:30 PM AMBULATORY - NONE [place] [facility] May 04, 2024 01:00 PM [place] [facility] May 08, 2024 02:30 PM AMBULATORY - MEDICINE [facility] May 08, 2024 02:31 PM AMBULATORY - NONE [place] [facility] May 16, 2024 10:00 AM AMBULATORY - SURGERY [facility] May 16, 2024 10:01 AM [place] [facility] May 19, 2024 08:00 AM AMBULATORY - NONE SONYA LAI [facility] Active, Pending, and Scheduled Orders This section includes a listing of several types of active, pending, and scheduled orders, including clinic medications orders, diagnostic test orders, procedure orders and consult orders; where the start date of the order is 45 days before the date of the Encounter or 45 days after the date of theEncounter. The data comes from all [place] treatment facilities. Test Date/Time Test Type Test Details Facility Name January 18, 2024 12:13 PM Consult Order [facility]-NEUROLOGY Cons [place] Bark Cutter's Choice [facility] Lab Results: +/- 30 [...] 24, 2023 05:48 PM Reporting Lab: [facility] [address] [facility] [address] Performing Lab: [facility] [address] [facility] [address] URINE COLOR Light[place] NOT DEFINED SPECIFIC GRAVITY 1.013 1.003-1.030 UROBILINOGEN [...] this document. The data comes from all [facility]. Date Advance Directives Provider Source Nov [...] 11:15 AM UROGRAM RETROGRADE : GALINA LOYD [id number] -1945 M Exm Date: DEC 16, 2023@11:15 Req Phys: CORBY OSORIO Pat Loc: [facility]N GENERAL G2RD (Req'g Img Loc: XRAY (OOS) Service: [place] [address] (Case [id number] COMPLETE) UROGRAM RETROGRADE (RAD Detailed) CPT:90702 Contrast Media : Non-ionic Iodinated Proc Modifiers : OPERATING ROOM EXAM Reason for Study: bilat ureteroscopy laser litho, stent placement Clinical History: calculus of kidney Report Status: Verified Date Reported: DEC 16, 2023 Date Verified: DEC 16, 2023 Scheduling Agent E-Sig:/ES/BENJAMÍN PIMENTEL Report: UROGRAM RETROGRADE 12/16/2023 11:15 AM Impression: Fluoroscopy performed during urology service procedure. FINDINGS: Procedure performed with the C-arm fluoroscopy . Fluoroscopy time 55 seconds, dose 9 mGy Fluoroscopic images consistent with history of bilateral ureteroscopy and stent placement. Labels from bilateral [place] Contour double-J ureteral stents placed on the scanned worksheet Please see procedure note for further details. HISTORY: bilat ureteroscopy laser litho, stent placement, Primary Diagnostic Code: NO IMMEDIATE ATTENTION REQUIRED Primary Interpreting Staff: BENJAMÍN PIMENTEL, Staff Physician (Scheduling Agent) /BENJAMÍN HYLTON [facility] Pathology Reports: +/- 30 days of [...] LR MICROBIOLOGY RE PORT: Reporting Lab: [facility] [CLIA# [id number]] [address] [facility] [place] [address] Accession [UID]: [id number] [[id number]] Received: Nov 30, 2023@19:53 Collection sample: URINE CLEAN CATCH Collection date: Nov 29, 2023 11:27 Site/Specimen: URINE Provider: CORBY OSORIO Test(s) ordered: CULTURE,URINE CLEAN CATCH..... completed: Dec 02, 2023 13:00 * BACTERIOLOGY FINAL REPORT => Dec 02, 2023 13:01 TECH CODE: [id number] Bacteriology Remark(s): 12/02/23 50,000-99,000 CFU/mL AT LEAST THREE BACTERIAL TYPES PRESENT INDICATING POSSIBLE CONTAMINATION, PLEASE REPEAT COLLECTION. =--=--=--=--=--=--=--=--=--=--= --=--=--=--=--=--=--=--=--=--=- -=--=--=--=--=-- Performing Laboratory: Bacteriology Report Performed By: SONYA PINON [facility] [CLIA# [id number]] [address] [place] [address] [facility] Encounter Notes: All associated encounter notes [...] Name: GALINA LOYD Patient Primary Address: [address] [place] [address] Patient Primary Phone: [phone] Patient : 1945 Patient Age: 78 Current [...] worsening symptoms: *Caller/Patient* advised to call facilities [place] Clinical Contact Center or seek immediate medical [...] FOLLOW UP Clinical Contact Center Codes Clinic/Location: [facility] PHONE CCC RN TXCC Triage Complete Triage Date: 12/22/2023, 10:40 AM Triage Note: Phone Triage 22 Dec 2023 14:38:12 +0000 [facility] Demographics 78 y/o Male Results CC: Leg Weakness (both legs) Software suggested: Self-care Software suggested follow-up location: Home, consider [facility] care Values and Measures Duration of CC: [...] myalgias, generalized Denies: HPI: unable to walk House Education Verbal Education Provided for: Weakness or [...] GIL RN Signed: 12/23/2023 12:40 SEE WRIGHT [facility]
--- OUTSIDE RECORDS SUMMARY | 2024-07-07 22:20 | XMS_ITS | Encounter Summary ---
Author Name [place] Organization [place] Address [address] [place] [address] Care Team Providers Care Assistant Branch Manager Name Role Phone KYRA VELASQUEZ Primary [...] Name Patient's Relationship to Policy Ervin [facility] (WNR) MEDICARE ADVANTAGE [facility](W NR) * Aug 23, 2023 [id number] [phone] ANNALISA LOYD ITE PATIENT [facility] MCR (WNR) MEDICARE ADVANTAGE [facility] (WNR) Aug 23, 2020 [id number] [phone] ANNALISA LOYD ITE PATIENT [facility] (WNR) MEDICARE ADVANTAGE [facility](W NR) Aug 23, 2012 [id number] ANNALISA LOYD ITJannette PATIENT Selected Encounter This section includes the information on record at [place] for the Encounter. Date/Time Encounter Type Encounter Description Reason Provider Source Dec 16, 2023 04:35 PM Outpatient Encounter ADMIN PAT ACTIVTIES (MASNONCT) CHUCK RIGGS Jannette Encounter Template Text not used by [place] [...] AMBULATORY [place] [facility] Feb 21, 2024 10:15 AM AMBULATORY - NONE [place] [facility] Feb 21, 2024 11:00 AM AMBULATORY - NONE [place] [facility] Mar 18, 2024 12:01 AM AMBULATORY - NONE [place] [facility] Apr 06, 2024 01:00 PM AMBULATORY - NONE [place] [facility] Apr 06, 2024 01:00 PM AMBULATORY - MEDICINE [facility] Apr 10, 2024 01:30 PM AMBULATORY - MEDICINE [facility] Apr 10, 2024 01:31 PM AMBULATORY - NONE [place] [facility] Apr 11, 2024 10:00 AM AMBULATORY - SURGERY [facility] Apr 11, 2024 10:01 AM [place] [facility] Apr 21, 2024 10:30 AM AMBULATORY - NONE [place] [facility] May 03, 2024 02:30 PM [place] [facility] May 04, 2024 10:30 AM [place] [facility] May 04, 2024 11:00 AM AMBULATORY [place] [facility] May 04, 2024 12:30 PM AMBULATORY - NONE [place] [facility] May 04, 2024 01:00 PM [place]ULATORY [place] [facility] May 08, 2024 02:30 PM AMBULATORY - MEDICINE [facility] May 08, 2024 02:31 PM AMBULATORY - NONE [place] [facility] May 16, 2024 10:00 AM AMBULATORY - SURGERY [facility] May 16, 2024 10:01 AM AMBULATORY - SURGERY [facility] Active, [...] 12:13 PM Consult Order [facility]-NEUROLOGY Cons Varnish Supervisor's Choice [facility] Lab Results: +/- 30 [...] PM Reporting Lab: [facility] [address] [facility] [address] Performing Lab: [facility] [address] [facility] [address] URINE COLOR Light[place] NOT DEFINED SPECIFIC GRAVITY 1.013 1.003-1.030 UROBILINOGEN [...] 136/84 20 96 0 69 122.3 18 [facility] Social History: Smoking Status (Most [...] 11:15 AM UROGRAM RETROGRADE : GALINA LOYD [id number] -1945 M Exm Date: DEC 16, 2023@11:15 Req Phys: CORBY OSORIO Pat Loc: [facility]N GENERAL G2RD (Req'g Img Loc: XRAY (OOS) Service: [place] [address] (Case [id number] COMPLETE) UROGRAM RETROGRADE (RAD Detailed) CPT:03655 Contrast Media : Non-ionic Iodinated Proc Modifiers : OPERATING ROOM EXAM Reason for Study: bilat ureteroscopy laser litho, stent placement Clinical History: calculus of kidney Report Status: Verified Date Reported: DEC 16, 2023 Date Verified: DEC 16, 2023 Freelance Programmer/App Developer E-Sig:/VIVIAN/BENJAMÍN PIMENTEL Report: UROGRAM RETROGRADE 12/16/2023 11:15 AM Impression: Fluoroscopy performed during urology service procedure. FINDINGS: Procedure performed with the C-arm fluoroscopy . Fluoroscopy time 55 seconds, dose 9 mGy Fluoroscopic images consistent with history of bilateral ureteroscopy and stent placement. Labels from bilateral [place] [employer] Contour double-J ureteral stents placed on the scanned worksheet Please see procedure note for further details. HISTORY: bilat ureteroscopy laser litho, stent placement, Primary Diagnostic Code: NO IMMEDIATE ATTENTION REQUIRED Primary Interpreting Staff: BENJAMÍN PIMENTEL, Staff Physician (Freelance Programmer/App Developer) /BENJAMÍN HYLTON [facility] Pathology Reports: +/- 30 days of [...] MICROBIOLOGY RE PORT: Reporting Lab: SONYA GAYLE [facility] [CLIA# [id number]] [address] [place] [address] Accession [UID]: [id number] [[id number]] Received: Nov 30, 2023@19:53 Collection sample: URINE CLEAN CATCH Collection date: Nov 29, 2023 11:27 Site/Specimen: URINE Provider: CORBY OSORIO Test(s) ordered: CULTURE,URINE CLEAN CATCH..... completed: Dec 02, 2023 13:00 * BACTERIOLOGY FINAL REPORT => Dec 02, 2023 13:01 TECH CODE: [id number] Bacteriology Remark(s): 12/02/23 50,000-99,000 CFU/mL AT LEAST THREE BACTERIAL TYPES PRESENT INDICATING POSSIBLE CONTAMINATION, PLEASE REPEAT COLLECTION. =--=--=--=--=--=--=--=--=--=--= --=--=--=--=--=--=--=--=--=--=- -=--=--=--=--=-- Performing Laboratory: Bacteriology Report Performed By: SONYA GAYLE [facility] [CLIA# [id number]] [address] [place] [address] [facility] Encounter Notes: All associated encounter notes This section contains the clinical notes associated to the Encounter. Date/Time Encounter Note(s) Provider Source Dec 16, 2023 04:35 PM ANESTHESIOLOGY NOT E: LOCAL TITLE: ARK PACU NOTE STANDARD TITLE: ANESTHESIOLOGY NOTE DATE OF NOTE: DEC 16, 2023@16:35 ENTRY DATE: DEC 16, 2023@16:35:43 AUTHOR: CHUCK RIGGS EXP COSIGNER: URGENCY: STATUS: COMPLETED Patient: GALINA LOYD SSN: [id number] Date of Operation: 12/16/2023 Surgery Start Time: [...] note PACU note PACU note PACU note /vivian/ CHUCK RIGGS Registered Nurse Signed: 12/16/2023 16:35 CHUCK RIGGS [facility]
--- OUTSIDE RECORDS SUMMARY | 2024-07-07 22:20 | XMS_ITS | Encounter Summary ---
Author Name Department [place] Address [address] [place] [address] Care Team Providers Care Rail Car Maintenance Mechanic Name Role Phone KYRA VELASQUEZ Primary [...] Ervin's Name Patient's Relationship to Policy Ervin [facility] (WNR) MEDICARE ADVANTAGE MCR(W NR) * Aug 23, 2023 [id number] ANNALISA EDUARDO ITE PATIENT [facility] (WNR) MEDICARE ADVANTAGE [facility] (WNR) Aug 23, 2020 [id number] [phone] ANNALISA EDUARDO ITE PATIENT [facility] (WNR) MEDICARE ADVANTAGE MCR(W NR) Aug 23, 2012 [id number] ANNALISA EDUARDO ITE PATIENT Selected Encounter This section includes the information on record at [place] for the Encounter. Date/Time Encounter Type Encounter Description Reason Provider Source Dec 21, 2023 01:30 PM CYSTOSCOPY CYSTO ROOM IN UROLOGY CL ICD-10-CM N20.0 Calculus of kidney CORBY OSORIO IHJannette Encounter Template Text not used by [place] Assessments - Encounter Diagnoses This section includes the primary and secondary diagnoses documented for the Encounter. Date/Time Primary/Secondary Diagnosis Diagnosis Name Provider Source Dec 21, 2023 02:17 PM PRIMARY Calculus of kidney BRII SOTO [address] [facility] [place] [facility] Plan of Treatment: Future Appointments (+ 6 [...] 02:30 PM AMBULATORY - [facility]ICINE [facility] May 08, 2024 02:31 PM AMBULATORY - NONE SONYA LAI [facility] May 16, 2024 10:00 AM AM[facility]ULATORY [facility] May 16, 2024 10:01 AM AMBULATORY - SURGERY SONYA GAYLE [facility] May 19, 2024 08:00 AM AMBULATORY - NONE SONYA LAI [facility] Active, Pending, and Scheduled Orders This section [...] 12:13 PM Consult Order [facility]-NEUROLOGY Cons Floor Tiling Professional's Choice [facility] Lab Results: +/- 30 [...] PM Reporting Lab: [facility] [address] [facility] [address] Performing Lab: [facility] [address] [facility] [address] URINE COLOR Light[place] NOT DEFINED SPECIFIC GRAVITY 1.013 1.003-1.030 UROBILINOGEN [...] 02:25 PM 97.5 63 116/74 20 97 [facility] Social History: Smoking Status (Most [...] 2021 02:27 PM CURRENT SMOKER [facility] Tobacco Use History This section includes a [...] HOSPITAL Jul 08, 2017 ADVANCE DIRECTIVE DISCUSSION CRYSTALPURNIMA E [facility] Radiology Reports: +/- 30 days [...] 11:15 AM UROGRAM RETROGRADE : GALINA EDUARDO [id number] -1945 M Exm Date: DEC 16, 2023@11:15 Req Phys: CORBY OSORIO Pat Loc: [facility]N GENERAL G2RD (Req'g Img Loc: XRAY (OOS) Service: Unknown [place] [address] (Case 447 COMPLETE) UROGRAM RETROGRADE (RAD Detailed) CPT:12391 Contrast Media : Non-ionic Iodinated Proc Modifiers : OPERATING ROOM EXAM Reason for Study: bilat ureteroscopy laser litho, stent placement Clinical History: calculus of kidney Report Status: Verified Date Reported: DEC 16, 2023 Date Verified: DEC 16, 2023 Proof Machine Operator E-Sig:/VIVIAN/BENJAMÍN PIMENTEL Report: UROGRAM RETROGRADE 12/16/2023 11:15 AM Impression: Fluoroscopy performed during urology service procedure. FINDINGS: Procedure performed with the C-arm fluoroscopy . Fluoroscopy time 55 seconds, dose 9 mGy Fluoroscopic images consistent with history of bilateral ureteroscopy and stent placement. Labels from bilateral [employer] Contour double-J ureteral stents placed on the scanned worksheet Please see procedure note for further details. HISTORY: bilat ureteroscopy laser litho, stent placement, Primary Diagnostic Code: NO IMMEDIATE ATTENTION REQUIRED Primary Interpreting Staff: BENJAMÍN PIMENTEL, Staff Physician (Proof Machine Operator) /BENJAMÍN HYLTON [facility] Pathology Reports: +/- 30 days of [...] the Encounter. The data comes from all [facility] facilities. Date/Time Pathology Report Provider Source Nov 29, 2023 11:27 AM LR MICROBIOLOGY RE PORT: Reporting Lab: SONYA [facility] [CLIA# [id number]] [address] [place] [address] Accession [UID]: [id number] [[id number]] Received: Nov 30, 2023@19:53 Collection sample: URINE CLEAN CATCH Collection date: Nov 29, 2023 11:27 Site/Specimen: URINE Provider: CORBY OSORIO Test(s) ordered: CULTURE,URINE CLEAN CATCH..... completed: Dec 02, 2023 13:00 * BACTERIOLOGY FINAL REPORT => Dec 02, 2023 13:01 TECH CODE: [id number] Bacteriology Remark(s): 12/02/23 50,000-99,000 CFU/mL AT LEAST THREE BACTERIAL TYPES PRESENT INDICATING POSSIBLE CONTAMINATION, PLEASE REPEAT COLLECTION. =--=--=--=--=--=--=--=--=--=--= --=--=--=--=--=--=--=--=--=--=- -=--=--=--=--=-- Performing Laboratory: Bacteriology Report Performed By: SONYA [facility] [CLIA# [id number]] [address] [place] [address] [facility] Encounter Notes: All associated encounter notes This section contains the clinical notes associated to the Encounter. Date/Time Encounter Note(s) Provider Source Dec 21, 2023 02:12 PM UROLOGY CONSULT: LOCAL TITLE: CONSULT - Urology Cystoscopy STANDARD TITLE: UROLOGY CONSULT DATE OF NOTE: DEC 21, 2023@14:12 ENTRY DATE: DEC 21, 2023@14:12:57 AUTHOR: SON SOTO COSIGNER: CORBY OSORIO URGENCY: STATUS: COMPLETED Procedure [...] Injury due to chemical exposure (SNOMED CT 129916658) U/A- Collection DT Spec COLOR SP.GRAV UROBILI BILIRUB KETONES GLU-U PROTEIN 11/29/2023 11:27 URINE Light[place] 1.013 <2.0 NEG NEG 50 100 Collection [...] Soto MD Urology Resident Signed: 12/21/2023 14:17 /vivian/ Pb OSORIO MD Staff Surgeon, Urology Cosigned: 12/21/2023 14:38 SON SOTO [facility] Dec 21, 2023 01:22 PM UROLOGY NURSING [...] SALCEDO rn Signed: 12/21/2023 14:24 GINGER SALCEDO [facility]
--- OUTSIDE RECORDS SUMMARY | 2024-07-07 22:20 | XMS_ITS | Encounter Summary ---
Author Name [place] Address [address] [place] [address] Care Team Providers Care Shredded Filler Cutter Operator Name Role Phone KYRA VELASQUEZ Primary [...] Name Patient's Relationship to Policy Ervin [facility] (WNR) MEDICARE ADVANTAGE [facility](W NR) * Aug 23, 2023 [id number] ANNALISA LOYD ITE PATIENT [facility] MCR (WNR) MEDICARE ADVANTAGE [facility] (WNR) Aug 23, 2020 [id number] [phone] ANNALISA LOYD ITE PATIENT [facility] (WNR) MEDICARE ADVANTAGE [facility](W NR) Aug 23, 2012 [id number] ANNALISA LOYD ITJannette PATIENT Selected Encounter [...] 11, 2024 10:00 AM AMBULATORY - SURGERY [facility] Apr 11, 2024 10:01 AM AMBULATORY [...] 08, 2024 02:30 PM AMBULATORY - MEDICINE [facility] May 08, 2024 02:31 PM AMBULATORY - NONE [place] [facility] May 16, 2024 10:00 AM AMBULATORY [facility] May 16, 2024 10:01 AM AMBULATORY - SURGERY [facility] [...] 18, 2024 12:13 PM Consult Order [facility] Cons Administrative Office Specialist's Choice [facility] Lab Results: +/- [...] Reporting Lab: [facility] [address] [facility] [address] Performing Lab: [facility] [address] [facility] [address] URINE COLOR [place] NOT DEFINED SPECIFIC GRAVITY 1.013 1.003-1.030 UROBILINOGEN [...] 136/84 20 96 0 69 122.3 18 [facility] Social History: Smoking Status (Most [...] 11:15 AM UROGRAM RETROGRADE : GALINA LOYD [id number] -1945 M Exm Date: DEC 16, 2023@11:15 Req Phys: CORBY OSORIO Pat Loc: [facility] GENERAL G2RD (Req'g Img Loc: XRAY (OOS) Service: [place] [address] (Case 447 COMPLETE) UROGRAM RETROGRADE (RAD Detailed) CPT:17904 Contrast Media : Non-ionic Iodinated Proc Modifiers : OPERATING ROOM EXAM Reason for Study: bilat ureteroscopy laser litho, stent placement Clinical History: calculus of kidney Report Status: Verified Date Reported: DEC 16, 2023 Date Verified: DEC 16, 2023 Standards Analyst E-Sig:/VIVIAN/BENJAMÍN PIMENTEL Report: UROGRAM RETROGRADE 12/16/2023 11:15 AM Impression: Fluoroscopy performed during urology service procedure. FINDINGS: Procedure performed with the C-arm fluoroscopy . Fluoroscopy time 55 seconds, dose 9 mGy Fluoroscopic images consistent with history of bilateral ureteroscopy and stent placement. Labels from bilateral [place] [employer] Contour double-J ureteral stents placed on the scanned worksheet Please see procedure note for further details. HISTORY: bilat ureteroscopy laser litho, stent placement, Primary Diagnostic Code: NO IMMEDIATE ATTENTION REQUIRED Primary Interpreting Staff: BENJAMÍN PIMENTEL, Staff Physician (Standards Analyst) /BENJAMÍN HYLTON [facility] Pathology Reports: [...] MICROBIOLOGY RE PORT: Reporting Lab: SONYA GAYLE [facility] [CLIA# [id number]] [address] [place] [address] Accession [UID]: [id number] [[id number]] Received: Nov 30, 2023@19:53 Collection sample: URINE CLEAN CATCH Collection date: Nov 29, 2023 11:27 Site/Specimen: URINE Provider: CORBY OSORIO Test(s) ordered: CULTURE,URINE CLEAN CATCH..... completed: Dec 02, 2023 13:00 * BACTERIOLOGY FINAL REPORT => Dec 02, 2023 13:01 TECH CODE: [id number] Bacteriology Remark(s): 12/02/23 50,000-99,000 CFU/mL AT LEAST THREE BACTERIAL TYPES PRESENT INDICATING POSSIBLE CONTAMINATION, PLEASE REPEAT COLLECTION. =--=--=--=--=--=--=--=--=--=--= --=--=--=--=--=--=--=--=--=--=- -=--=--=--=--=-- Performing Laboratory: Bacteriology Report Performed By: SONYA GAYLE [facility] [CLIA# [id number]] [address] [place] [address] [facility] Encounter Notes: All associated encounter notes This section contains the clinical notes associated to the Encounter. Date/Time Encounter Note(s) Provider Source Dec 16, 2023 01:37 PM ANESTHESIOLOGY NOT E: LOCAL TITLE: ARK OR ANESTHESIA NOTE STANDARD TITLE: ANESTHESIOLOGY NOTE DATE OF NOTE: DEC 16, 2023@13:37 ENTRY DATE: DEC 16, 2023@13:37:16 AUTHOR: ALICIA TELLEZ COSIGNER: URGENCY: STATUS: COMPLETED Patient: GALINA LOYD SSN: [id number] Date of Operation: 12/16/2023 Surgery Start Time: [...] Report given 12/16/2023 13:34 /vivian/ ALICIA TELLEZ GROUN[employer]KEEPING [employer]AR[employer] Signed: 12/16/2023 13:37 ALICIA TELLEZ [facility]
--- OUTSIDE RECORDS SUMMARY | 2024-07-07 22:20 | XMS_ITS ---
Author Name Department of Vetera ns Affairs (MD) Organization Department of Vetera Affairs ([place]) Address [address] [place] [address] Care Team Providers Care Wrapping Machine Operator Name Role Phone KYRA VELASQUEZ Primary [...] Ervin's Name Patient's Relationship to Policy Ervin [facility] (WNR) MEDICARE [facility](W NR) * Aug 23, 2023 [id number] ANNALISA LOYD ITE PATIENT [facility] MCR (WNR) MEDICARE ADVANTAGE [facility] (WNR) Aug 23, 2020 [id number] [phone] ANNALISA LOYD ITE PATIENT [facility] (WNR) MEDICARE ADVANTAGE [facility](W NR) Aug 23, 2012 [id number] ANNALISA LOYD ITJannette PATIENT Selected Encounter This section includes the information on record at MD for the Encounter. Date/Time Encounter Type Encounter Description Reason Pro vider Source December 28, 2023 02:38 PM Outpatient Encounter ADMIN PAT ACTIVTIES (MASNONCT) IHE Encounter Template Text not used by MD Plan of Treatment: Future Appointments (+ 6 [...] [place] [facility] May 08, 2024 02:30 PM AMBULATORY - MEDICINE [facility] May 08, 2024 02:31 PM AMBULATORY - NONE [place] [facility] May 16, 2024 10:00 AM AMBULATORY - SURGERY [facility] May 16, 2024 10:01 AM AMBULATORY - [place] [facility] May 19, 2024 08:00 AM AMBULATORY - NONE SONYA PA JOELLE [facility] Active, Pending, and Scheduled Orders This section [...] January 18, 2024 12:13 PM Consult Order [facility]-NEUROLOGY Cons Senior Product Development Scientist's Choice SONYA GAYLE [facility] Lab Results: +/- 30 days of the encounter This section includes the Chemistry and Hematology Lab Results on record with MD for the patient. Radiology Reports and Pathology [...] Reporting Lab: [facility] [address] [facility] [address] Performing Lab: [facility] [address] [facility] [address] URINE COLOR Light-[place] NOT DEFINED SPECIFIC GRAVITY 1.013 1.003-1.030 UROBILINOGEN [...] and tobacco- related health factors from the [facility] facility where the Encounter took place. Current [...] 11:15 AM UROGRAM RETROGRADE : GALINA LOYD [id number] -1945 M Exm Date: DEC 16, 2023@11:15 Req Phys: CORBY OSORIO Pat Loc: [facility] GENERAL G2RD (Req'g Img Loc: XRAY (OOS) Service: [place] [address] (Case [id number] COMPLETE) UROGRAM RETROGRADE (RAD Detailed) CPT:75224 Contrast Media : Non-ionic Iodinated Proc Modifiers : OPERATING ROOM EXAM Reason for Study: bilat ureteroscopy laser litho, stent placement Clinical History: calculus of kidney Report Status: Verified Date Reported: DEC 16, 2023 Date Verified: DEC 16, 2023 Liquor Bridge Operator Helper E-Sig:/ES/BENJAMÍN PIMENTEL Report: UROGRAM RETROGRADE 12/16/2023 11:15 AM Impression: Fluoroscopy performed during urology service procedure. FINDINGS: Procedure performed with the C-arm fluoroscopy . Fluoroscopy time 55 seconds, dose 9 mGy Fluoroscopic images consistent with history of bilateral ureteroscopy and stent placement. Labels from bilateral Dropcam Contour double-J ureteral stents placed on the scanned worksheet Please see procedure note for further details. HISTORY: bilat ureteroscopy laser litho, stent placement, Primary Diagnostic Code: NO IMMEDIATE ATTENTION REQUIRED Primary Interpreting Staff: BENJAMÍN PIMENTEL, Staff Physician (Liquor Bridge Operator Helper) /BENJAMÍN HYLTON [facility] Pathology Reports: [...] comes from all MD treatment facilities. Date/Time Pathology Report Provider Source Nov 29, 2023 11:27 AM LR MICROBIOLOGY RE PORT: Reporting Lab: [facility] [CLIA# [id number]] [address] [place] [address] Accession [UID]: [id number] [[id number]] Received: Nov 30, 2023@19:53 Collection sample: URINE CLEAN CATCH Collection date: Nov 29, 2023 11:27 Site/Specimen: URINE Provider: CORBY OSORIO Test(s) ordered: CULTURE,URINE CLEAN CATCH..... completed: Dec 02, 2023 13:00 * BACTERIOLOGY FINAL REPORT => Dec 02, 2023 13:01 TECH CODE: [id number] Bacteriology Remark(s): 12/02/23 50,000-99,000 CFU/mL AT LEAST THREE BACTERIAL TYPES PRESENT INDICATING POSSIBLE CONTAMINATION, PLEASE REPEAT COLLECTION. =--=--=--=--=--=--=--=--=--=--= --=--=--=--=--=--=--=--=--=--=- -=--=--=--=--=-- Performing Laboratory: Bacteriology Report Performed By: SONYA PINON [facility] [CLIA# [id number]] [address] [place] [address] [facility] Encounter Notes: All associated encounter [...] cxd ltr mailed) /vivian/ CRESENCIO HOLLINS LEAD PHYSICAL THERAPY COORDINATOR Signed: 12/28/2023 14:38 CRESENCIO HOLLINS [facility]
--- OUTSIDE RECORDS SUMMARY | 2024-07-07 22:20 | XMS_ITS | Encounter Summary ---
Author Name Department of Vetera Affairs ([place]) Organization Department of Vetera Affairs ([place]) Address [address] [place] [address] Care Team Providers Care Toe Trimmer Name Role Phone KYRA VELASQUEZ Primary Care [...] Patient's Relationship to Policy Ervin [facility] (WNR) MEDICARE ADVANTAGE MCR(W NR) * Aug 23, 2023 [id number] ANNALISA LOYD ITE PATIENT [facility] (WNR) MEDICARE ADVANTAGE [facility] (WNR) Aug 23, 2020 [id number] [phone] ANNALISA LOYD ITE PATIENT [facility] (WNR) MEDICARE [facility](W NR) Aug 23, 2012 [id number] ANNALISA LOYD ITE PATIENT Selected Encounter [...] activities for the patient from all [place] treatment[facility] hospital[facility]. This section includes future appointments and future orders which are active, pending or scheduled. Future Appointments This section includes appointments that were scheduled to occur 6 months from the date of the Encounter, up to a maximum of 20 appointments. The data comes from all [place] treatment facilities. Appointment Date/Time Appointment Type Appointme [...] 06, 2024 01:00 PM AMBULATORY - MEDICINE [facility] Apr 10, 2024 01:30 PM AMBULATORY [...] 16, 2024 10:01 AM AMBULATORY - SURGERY [facility] [...] of theEncounter. The data comes from all [place] treatment facilities. Test Date/Time Test Type Test Details Facility Name January 18, 2024 12:13 PM Consult Order [facility] Cons Crop Grain Or Livestock Farmer's Choice [facility] Lab Results: +/- [...] Reporting Lab: [facility] [address] [facility] [address] Performing Lab: [facility] [address] [facility] [address] URINE COLOR Light-[place] NOT DEFINED SPECIFIC GRAVITY 1.013 1.003-1.030 UROBILINOGEN [...] SMOKER REINIER GAYLE [facility] Dec 08, 2020 08:45 PM VA-TOBACCO [...] ALL of a patient's completed or amended [place] Advance and Rescinded Directives. The entries below [...] 11:15 AM UROGRAM RETROGRADE : GALINA LOYD [id number] -1945 M Exm Date: DEC 16, 2023@11:15 Req Phys: CORBY OSORIO Pat Loc: [facility] GENERAL G2RD (Req'g Img Loc: XRAY (OOS) Service: [place] [address] (Case [id number] COMPLETE) UROGRAM RETROGRADE (RAD Detailed) CPT:65929 Contrast Media : Non-ionic Iodinated Proc Modifiers : OPERATING ROOM EXAM Reason for Study: bilat ureteroscopy laser litho, stent placement Clinical History: calculus of kidney Report Status: Verified Date Reported: DEC 16, 2023 Date Verified: DEC 16, 2023 Seismograph Shooter E-Sig:/ES/BENJAMÍN PIMENTEL Report: UROGRAM RETROGRADE 12/16/2023 11:15 AM Impression: Fluoroscopy performed during urology service procedure. FINDINGS: Procedure performed with the C-arm fluoroscopy . Fluoroscopy time 55 seconds, dose 9 mGy Fluoroscopic images consistent with history of bilateral ureteroscopy and stent placement. Labels from bilateral RelayRides Contour double-J ureteral stents placed on the scanned worksheet Please see procedure note for further details. HISTORY: bilat ureteroscopy laser litho, stent placement, Primary Diagnostic Code: NO IMMEDIATE ATTENTION REQUIRED Primary Interpreting Staff: BENJAMÍN PIMENTEL, Staff Physician (Seismograph Shooter) /BENJAMÍN HYLTON [facility] Pathology Reports: [...] the Encounter. The data comes from all [facility] facilities. Date/Time Pathology Report Provider Source Nov 29, 2023 11:27 AM LR MICROBIOLOGY RE PORT: Reporting Lab: [facility] [CLIA# [id number]] [address] [place] [address] Accession [UID]: [id number] [[id number]] Received: Nov 30, 2023@19:53 Collection sample: URINE CLEAN CATCH Collection date: Nov 29, 2023 11:27 Site/Specimen: URINE Provider: CORBY OSORIO Test(s) ordered: CULTURE,URINE CLEAN CATCH..... completed: Dec 02, 2023 13:00 * BACTERIOLOGY FINAL REPORT => Dec 02, 2023 13:01 TECH CODE: [id number] Bacteriology Remark(s): 12/02/23 50,000-99,000 CFU/mL AT LEAST THREE BACTERIAL TYPES PRESENT INDICATING POSSIBLE CONTAMINATION, PLEASE REPEAT COLLECTION. =--=--=--=--=--=--=--=--=--=--= --=--=--=--=--=--=--=--=--=--=- -=--=--=--=--=-- Performing Laboratory: Bacteriology Report Performed By: SONYA GAYLE [facility] [CLIA# [id number]] [address] [place] [address] [facility] Encounter Notes: All associated [...] LIANE HAIDER Signed: 12/17/2023 08:32 LIANE HAIDER [facility]
--- OUTSIDE RECORDS SUMMARY | 2024-07-07 22:20 | XMS_ITS ---
Author Name Department of Vetera Affairs [place] Organization [place] Address [address] [place] [address] Care Team Providers Care Old Testament Professor Name Role Phone KYRA VELASQUEZ Primary Care [...] [facility] ([facility]) [facility] ADVANTAGE MCR(W NR) * Aug 23, 2023 [id number] ANNALISA LOYD ITE PATIENT [facility] (WNR) MEDICARE ADVANTAGE [facility] (WNR) Aug 23, 2020 [id number] [phone] ANNALISA LOYD ITE PATIENT [facility] (WNR) MEDICARE [facility](W NR) Aug 23, 2012 [id number] 03 ANNALISA LOYD ITE PATIENT Selected Encounter [...] activities for the patient from all [place] treatment[facility]ities. This section includes future appointments and future [...] AMBULATORY - NONE [place] [facility] Feb 21, 2024 11:00 AM AMBULATORY - NONE [place] [facility] Mar 18, 2024 12:01 AM AMBULATORY - NONE [place] [facility] Apr 06, 2024 01:00 PM AMBULATORY - NONE [place] [facility] Apr 06, 2024 01:00 PM AMBULATORY - MEDICINE [facility] Apr 10, 2024 01:30 PM AMBULATORY - MEDICINE [facility] Apr 10, 2024 01:31 PM AMBULATORY - NONE [place] [facility] Apr 11, 2024 10:00 AM AMBULATORY - SURGERY [facility] Apr 11, 2024 10:01 AM AMBUL[place]ORY [place] [facility] Apr 21, 2024 10:30 AM AMBULATORY - NONE [place] [facility] May 03, 2024 02:30 PM AMBULATORY - [place]GERY [place] [facility] May 04, 2024 10:30 AM AMBULATORY - [place]IC[place] [facility] May 04, 2024 11:00 AM AMBULATORY - [place]GERY [place] [facility] May 04, 2024 12:30 PM AMBULATORY - NONE [place] [facility] May 04, 2024 01:00 PM AMBULATORY - [place]GERY [place] [facility] May 08, 2024 02:30 PM AMBULATORY - MEDICINE [facility] May 08, 2024 02:31 PM AMBULATORY - NONE [place] [facility] May 16, 2024 10:00 AM AMBULATORY - SURGERY [facility] May 16, 2024 10:01 AM AMBULATORY - [place]GERY [place] [facility] May 19, 2024 08:00 AM AMBULATORY - NONE SONYA LAI [facility] Active, Pending, and Scheduled Orders This section includes a listing of several types of active, pending, and scheduled orders, including clinic medications orders, diagnostic test orders, procedure orders and consult orders; where the start date of the order is 45 days before the date of the Encounter or 45 days after the date of theEncounter. The data comes from all [place] treatment facilities. Test Date/Time Test Type Test Details Facility Name January 18, 2024 12:13 PM Consult Order [facility]NEUROLOGY Cons Welder Fitter's Choice SONYA GAYLE [facility] Lab Results: +/- 30 days of the encounter This section includes the Chemistry and Hematology Lab Results on record with [place] for the patient. Radiology Reports and Pathology [...] Reporting Lab: [facility] [address] [facility] [address] Performing Lab: [facility] [address] [facility] [address] URINE COLOR Light-[place] NOT DEFINED SPECIFIC GRAVITY 1.013 1.003-1.030 UROBILINOGEN [...] SMOKER REINIER GAYLE [facility] Dec 08, 2020 08:45 PM VA-TOBACCO [...] 11:15 AM UROGRAM RETROGRADE : GALINA LOYD [id number] -1945 M Exm Date: DEC 16, 2023@11:15 Req Phys: CORBY OSORIO Pat Loc: [facility] GENERAL G2RD (Req'g Img Loc: XRAY (OOS) Service: [place] [address] (Case [id number] COMPLETE) UROGRAM RETROGRADE (RAD Detailed) CPT:57555 Contrast Media : Non-ionic Iodinated Proc Modifiers : OPERATING ROOM EXAM Reason for Study: bilat ureteroscopy laser litho, stent placement Clinical History: calculus of kidney Report Status: Verified Date Reported: DEC 16, 2023 Date Verified: DEC 16, 2023 Production Artist E-Sig:/ES/BENJAMÍN PIMENTEL Report: UROGRAM RETROGRADE 12/16/2023 11:15 AM Impression: Fluoroscopy performed during urology service procedure. FINDINGS: Procedure performed with the C-arm fluoroscopy . Fluoroscopy time 55 seconds, dose 9 mGy Fluoroscopic images consistent with history of bilateral ureteroscopy and stent placement. Labels from bilateral TransitScreen Contour double-J ureteral stents placed on the scanned worksheet Please see procedure note for further details. HISTORY: bilat ureteroscopy laser litho, stent placement, Primary Diagnostic Code: NO IMMEDIATE ATTENTION REQUIRED Primary Interpreting Staff: BENJAMÍN PIMENTEL, Staff Physician (Miah) /BENJAMÍN HYLTON [facility] Pathology Reports: +/- 30 days [...] AM LR MICROBIOLOGY RE PORT: Reporting Lab: [facility] [CLIA# [id number]] [address] [place] [facility] [address] Accession [UID]: [id number] [[id number]] Received: Nov 30, 2023@19:53 Collection sample: URINE CLEAN CATCH Collection date: Nov 29, 2023 11:27 Site/Specimen: URINE Provider: CORBY OSORIO Test(s) ordered: CULTURE,URINE CLEAN CATCH..... completed: Dec 02, 2023 13:00 * BACTERIOLOGY FINAL REPORT => Dec 02, 2023 13:01 TECH CODE: [id number] Bacteriology Remark(s): 12/02/23 50,000-99,000 CFU/mL AT LEAST THREE BACTERIAL TYPES PRESENT INDICATING POSSIBLE CONTAMINATION, PLEASE REPEAT COLLECTION. =--=--=--=--=--=--=--=--=--=--= --=--=--=--=--=--=--=--=--=--=- -=--=--=--=--=-- Performing Laboratory: Bacteriology Report Performed By: SONYA PINON [facility] [CLIA# [id number]] [address] [place] [address] [facility] Encounter Notes: All associated [...] REQUIRED Electronically Filed: 12/27/2023 by: NICOLE CASTELLON WEB PRODUCTION ASSISTANT Receipt Acknowledged By: 12/27/2023 22:54 /vivian/ KYRA VELASQUEZ M.D INTERNAL MEDICINE, [facility] CLINICAL RESOURCE [facility] KYRA VELASQUEZ [facility] December 26, 2023 12:00 PM NONVA [...] REQUIRED Electronically Filed: 12/27/2023 by: NICOLE CASTELLON WEB PRODUCTION ASSISTANT Receipt Acknowledged By: 12/27/2023 22:54 /vivian/ KYRA VELASQUEZ M.D INTERNAL MEDICINE, [facility] CLINICAL RESOURCE [facility] 12/27/2023 ADDENDUM STATUS: COMPLETED please scan to chart /vivian/ KYAR VELASQUEZ M.D INTERNAL MEDICINE, [facility] CLINICAL RESOURCE [facility] Signed: 12/27/2023 23:00 Receipt Acknowledged By: * AWAITING SIGNATURE * JENIFER SHANE [place] [facility]
--- OUTSIDE RECORDS SUMMARY | 2024-07-07 22:20 | XMS_ITS ---
Author Name Department of Vetera Affairs ([place]) Organization Department of Vetera Affairs ([place] Address [address] [place] [address] Care Team Providers Care Aircraft Lay Out Worker Name Role Phone KYRA GUTIERREZ Primary Care [...] Patient's Relationship to Policy Ervin [facility] (WNR) MEDICARE ADVANTAGE MCR(W NR) * Aug 23, 2023 [id number] ANNALISA LOYD ITE PATIENT [facility] (WNR) MEDICARE ADVANTAGE [facility] (WNR) Aug 23, 2020 [id number] [phone] ANNALISA LOYD ITE PATIENT [facility] (WNR) MEDICARE [facility](W NR) Aug 23, 2012 [id number] 03 ANNALISA LOYD ITE PATIENT Selected Encounter [...] activities for the patient from all [place] [facility]. This section includes future appointments and [...] - NONE [place] [facility] Feb 21, 2024 11:00 AM AMBULATORY - NONE [place] [facility] Mar 18, 2024 12:01 AM AMBULATORY - NONE [place] [facility] Apr 06, 2024 01:00 PM AMBULATORY - NONE [place] [facility] Apr 06, 2024 01:00 PM AMBULATORY - MEDICINE [facility] Apr 10, 2024 01:30 PM AMBULATORY - MEDICINE [facility] Apr 10, 2024 01:31 PM AMBULATORY - NONE [place] [facility] Apr 11, 2024 10:00 AM AMBULATORY - SURGERY [facility] Apr 11, 2024 10:01 AM AMBULATORY [place]GERY [place] [facility] Apr 21, 2024 10:30 AM AMBULATORY - NONE [place] [facility] May 03, 2024 02:30 PM AMBULATORY - [place]GERY [place] [facility] May 04, 2024 10:30 AM AMBULATORY [place]IC[place] [facility] May 04, 2024 11:00 AM AMBULATORY - [place]GERY [place] [facility] May 04, 2024 12:30 PM AMBULATORY - NONE [place] [facility] May 04, 2024 01:00 PM AMBULATORY - [place]GERY [place] [facility] May 08, 2024 02:30 PM AMBULATORY - MEDICINE [facility] May 08, 2024 02:31 PM AMBULATORY - NONE [place] [facility] May 16, 2024 10:00 AM AMBULATORY - SURGERY [facility] May 16, 2024 10:01 AM AMBULATORY - [place]GERY [place] [facility] May 19, 2024 08:00 AM AMBULATORY - NONE SONYA LAI [facility] Active, Pending, and Scheduled Orders [...] January 18, 2024 12:13 PM Consult Order [facility]-NEUROLOGY Cons Mechanical Systems Engineer's Choice SONYA GAYLE [facility] Lab Results: +/- 30 days [...] 24, 2023 05:48 PM Reporting Lab: SONYA [facility] [address] [facility] [address] Performing Lab: [facility] [address] [facility] [address] URINE COLOR Light-[place] NOT DEFINED SPECIFIC GRAVITY 1.013 1.003-1.030 UROBILINOGEN [...] 2021 02:27 PM CURRENT SMOKER REINIER GAYLE [facility] Tobacco Use History This section includes [...] 2021 02:41 PM CURRENT SMOKER REINIER GAYLE [facility] Dec 08, 2020 08:45 PM VA-TOBACCO [...] 11:15 AM UROGRAM RETROGRADE : GALINA LOYD [id number] -1945 M Exm Date: DEC 16, 2023@11:15 Req Phys: CORBY OSORIO Pat Loc: [facility] GENERAL G2RD (Req'g Img Loc: XRAY (OOS) Service: [place] [address] (Case 447 COMPLETE) UROGRAM RETROGRADE (RAD Detailed) CPT:50074 Contrast Media : Non-ionic Iodinated Proc Modifiers : OPERATING ROOM EXAM Reason for Study: bilat ureteroscopy laser litho, stent placement Clinical History: calculus of kidney Report Status: Verified Date Reported: DEC 16, 2023 Date Verified: DEC 16, 2023 Animal Shelter Clerk E-Sig:/ES/BENJAMÍN PIMENTEL Report: UROGRAM RETROGRADE 12/16/2023 11:15 AM Impression: Fluoroscopy performed during urology service procedure. FINDINGS: Procedure performed with the C-arm fluoroscopy . Fluoroscopy time 55 seconds, dose 9 mGy Fluoroscopic images consistent with history of bilateral ureteroscopy and stent placement. Labels from bilateral GameGround Contour double-J ureteral stents placed on the scanned worksheet Please see procedure note for further details. HISTORY: bilat ureteroscopy laser litho, stent placement, Primary Diagnostic Code: NO IMMEDIATE ATTENTION REQUIRED Primary Interpreting Staff: BENJAMÍN PIMENTEL, Staff Physician (Miah) /BENJAMÍN HYLTON [facility] Pathology Reports: +/- [...] RE PORT: Reporting Lab: [facility] [CLIA# [id number]] [address] [place] [address] Accession [UID]: [id number] [[id number]] Received: Nov 30, 2023@19:53 Collection sample: URINE CLEAN CATCH Collection date: Nov 29, 2023 11:27 Site/Specimen: URINE Provider: CORBY OSORIO Test(s) ordered: CULTURE,URINE CLEAN CATCH..... completed: Dec 02, 2023 13:00 * BACTERIOLOGY FINAL REPORT => Dec 02, 2023 13:01 TECH CODE: [id number] Bacteriology Remark(s): 12/02/23 50,000-99,000 CFU/mL AT LEAST THREE BACTERIAL TYPES PRESENT INDICATING POSSIBLE CONTAMINATION, PLEASE REPEAT COLLECTION. =--=--=--=--=--=--=--=--=--=--= --=--=--=--=--=--=--=--=--=--=- -=--=--=--=--=-- Performing Laboratory: Bacteriology Report Performed By: SONYA PNION [facility] [CLIA# [id number]] [address] [place] [address] [facility] Encounter Notes: All associated encounter notes This section contains the clinical notes associated to the Encounter. Date/Time Encounter Note(s) Provider Source December 26, 2023 08:42 AM NONVA NOTE: LOCAL TITLE: NonVA Medical Records STANDARD TITLE: NONVA NOTE DATE OF NOTE: DECEMBER 26, 2023@08:42 ENTRY DATE: DECEMBER 28, 2023@08:42:50 AUTHOR: JENIFER SHANE EXP COSIGNER: URGENCY: STATUS: COMPLETED [address] [address] MEDICAL RECORDS DEPARTMENT ED Visit Note Discharge [...] Follow up with primary care provider and/or [facility] in 3-5 days. Return to ED sooner if any worsening or concerns. Increase oral fluids. 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 He reports his noticed he was wobbly on his feet and wanted me checked out. Past medical history includes CVA, seizure lymphoma prostate cancer and hypertension, history of craniotomy. He does see urology at [facility]. Exam Narrative: Constitutional: Alert and oriented x3. [...] quads. Musculoskeletal: Unable to assess gait, per staff nurse midwife, c/o dizziness with transfer from Wheelchair to [...] 16:23 /vivian/ KYRA GUTIERREZ M.D [facility]NAL MEDIC[facility], [facility] 01/12/2024 08:30 /vivian/ EFRAÍN VALIENTE [facility]
--- OUTSIDE RECORDS SUMMARY | 2024-07-07 22:20 | XMS_ITS | Encounter Summary ---
Author Name [place] Address [address] [place] [address] Care Team Providers Care Plant Safety Leader Name Role Phone RONKATHARINEKYRA Primary Care Provider [...] [facility] (WNR) MEDICARE ADVANTAGE MCR(W NR) * Aug 23, 2023 [id number] [phone] ANNALISA LOYD ITE PATIENT [facility] (WNR) MEDICARE AD[facility]ANTAGE [facility] (WNR) Aug 23, 2020 [id number] [phone] ANNALISA LOYD ITE PATIENT [facility] (WNR) MEDICARE [facility](W NR) Aug 23, 2012 [id number] ANNALISA OLYD ITE PATIENT Selected Encounter [...] activities for the patient from all [place] [facility]. This section includes future appointments and future [...] [place]CT [facility] Mar 18, 2024 12:01 AM AMBULATORY - [...] - [place] [facility] May 04, 2024 11:00 AM AMBULATORY - [...] [facility] May 16, 2024 10:00 AM AMBULATORY - SURGERY [facility] May 16, 2024 10:01 AM AMBULATORY [place] [facility] May 19, 2024 08:00 AM AMBULATORY - NONE SONYA LAI [facility] Active, Pending, and Scheduled Orders This [...] January 18, 2024 12:13 PM Consult Order [facility]OLOG[facility] Cons Manager Facility's Choice SONYA GAYLE [facility] Lab Results: +/- 30 days of [...] 24, 2023 05:48 PM Reporting Lab: SONYA [facility] [address] [facility] [address] Performing Lab: [facility] [address] [facility] [address] URINE COLOR Light-[place] NOT DEFINED SPECIFIC GRAVITY 1.013 1.003-1.030 UROBILINOGEN [...] 02:25 PM 97.5 63 116/74 20 97 [facility] Social History: Smoking [...] the Encounter. The data comes from all [facility]. Date/Time Radiology Report Provider Source Dec 16, 2023 11:15 AM UROGRAM RETROGRADE : GALINA LOYD [id number] -1945 M Exm Date: DEC 16, 2023@11:15 Req Phys: CORBY OSORIO Pat Loc: [facility] SH[facility]N GENERAL G2RD (Req'g Img Loc: XRAY (OOS) Service: [place] [facility] [address] (Case [id number] COMPLETE) UROGRAM RETROGRADE (RAD Detailed) CPT:13467 Contrast Media : Non-ionic Iodinated Proc Modifiers : OPERATING ROOM EXAM Reason for Study: bilat ureteroscopy laser litho, stent placement Clinical History: calculus of kidney Report Status: Verified Date Reported: DEC 16, 2023 Date Verified: DEC 16, 2023 Event Planning Manager E-Sig:/ES/BENJAMÍN PIMENTEL Report: UROGRAM RETROGRADE 12/16/2023 11:15 AM Impression: Fluoroscopy performed during urology service procedure. FINDINGS: Procedure performed with the C-arm fluoroscopy . Fluoroscopy time 55 seconds, dose 9 mGy Fluoroscopic images consistent with history of bilateral ureteroscopy and stent placement. Labels from bilateral Lyrically [employer] Contour double-J ureteral stents placed on the scanned worksheet Please see procedure note for further details. HISTORY: bilat ureteroscopy laser litho, stent placement, Primary Diagnostic Code: NO IMMEDIATE ATTENTION REQUIRED Primary Interpreting Staff: BENJAMÍN PIMENTEL, Staff Physician (Event Planning Manager) /BENJAMÍN HYLTON [facility] Pathology Reports: +/- 30 days of [...] MICROBIOLOGY RE PORT: Reporting Lab: SONYA PINON [facility] [CLIA# [id number]] [address] [place] [address] Accession [UID]: [id number] [[id number]] Received: Nov 30, 2023@19:53 Collection sample: URINE CLEAN CATCH Collection date: Nov 29, 2023 11:27 Site/Specimen: URINE Provider: CORBY OSORIO Test(s) ordered: CULTURE,URINE CLEAN CATCH..... completed: Dec 02, 2023 13:00 * BACTERIOLOGY FINAL REPORT => Dec 02, 2023 13:01 TECH CODE: [id number] Bacteriology Remark(s): 12/02/23 50,000-99,000 CFU/mL AT LEAST THREE BACTERIAL TYPES PRESENT INDICATING POSSIBLE CONTAMINATION, PLEASE REPEAT COLLECTION. =--=--=--=--=--=--=--=--=--=--= --=--=--=--=--=--=--=--=--=--=- -=--=--=--=--=-- Performing Laboratory: Bacteriology Report Performed By: SONYA PINON [facility] [CLIA# [id number]] [address] [place] [address] [facility]
--- OUTSIDE RECORDS SUMMARY | 2024-07-07 22:20 | XMS_ITS | Encounter Summary ---
Author Name Department [place] Address [address] [place] [address] Care Team Providers Care Golf Starter And Ranger Name Role Phone KYRA VELASUQEZ Primary Care Provider Unavailabl e Insurance Providers: [...] Name Patient's Relationship to Policy Ervin [facility] (WNR) MEDICARE ADVANTAGE MCR(W NR) * Aug 23, 2023 [id number] ANNALISA LOYD ITE PATIENT [facility] (WNR) MEDICARE ADVANTAGE [facility] (WNR) Aug 23, 2020 [id number] [phone] ANNALISA LOYD ITE PATIENT [facility] (WNR) MEDICARE [facility](W NR) Aug 23, 2012 [id number] ANNALISA LOYD ITE PATIENT Selected Encounter This section includes the information on record at [place] for the Encounter. Date/Time Encounter Type Encounter Description Reason Provider Source Dec 13, 2023 02:30 PM TELEHEALTH FACILITY FEE NUTRITION/DIETETI CS-INDIVIDUAL ICD-10-CM Z71.3 Dietary counseling and surveillance ADOLOF [place] Jannette Encounter Template Text not used by [place] Assessments - Encounter Diagnoses This section includes the primary and secondary diagnoses documented for the Encounter. Date/Time Primary/Secondary Diagnosis Diagnosis Name Provider Source Dec 20, 2023 01:06 PM PRIMARY Dietary counseling and surveillance [facility] Plan of Treatment: Future Appointments [...] AM AMBULATORY - [place] [facility] Dec 21, 2023 01:30 PM AMBULATORY - SURGERY [place] [facility] Feb 21, 2024 10:15 AM AMBULATORY - NONE [place] [facility] Feb 21, 2024 11:00 AM AMBULATORY - NONE [place] [facility] Mar 18, 2024 12:01 AM AMBULATORY - NONE [place] [facility] Apr 06, 2024 01:00 PM AMBULATORY - NONE [place] [facility] Apr 06, 2024 01:00 PM AMBULATORY - MEDICINE [facility] Apr 10, 2024 01:30 PM AMBULATORY - MEDICINE [facility] Apr 10, 2024 01:31 PM AMBULATORY - NONE [place] [facility] Apr 11, 2024 10:00 AM AMBULATORY - SURGERY [facility] Apr 11, 2024 10:01 AM AMBUL[place]ORY [place] [facility] Apr 21, 2024 10:30 AM AMBULATORY - NONE [place] [facility] May 03, 2024 02:30 PM AMBULATORY - SURGERY [place] [facility] May 04, 2024 10:30 AM AMBUL[place] [facility] May 04, 2024 11:00 AM [place] [facility] May 04, 2024 12:30 PM AMBULATORY - NONE SONYA LAI [facility] May 04, 2024 01:00 PM AMBULATORY - SURGERY [facility] May 08, 2024 02:30 PM AMBULATORY - MEDICINE [facility] May 08, 2024 02:31 PM AMBULATORY - NONE SONYA PINON [facility] May 16, 2024 10:00 AM AMBULATORY - [...] January 18, 2024 12:13 PM Consult Order [facility]-NEUROLOGY Cons Help Desk Internship's Choice [facility] Lab Results: +/- 30 days of the encounter This section includes the Chemistry and Hematology Lab Results on record with [place] for the patient. Radiology Reports and Pathology [...] Lab: [facility] [address] [facility] [address] Performing Lab: [facility] [address] [facility] [address] URINE COLOR Light-[place] NOT DEFINED SPECIFIC GRAVITY 1.013 1.003-1.030 UROBILINOGEN [...] Dec 13, 2023 02:34 PM 121.3 17 [facility] Social History: Smoking Status (Most current) [...] May 14, 2022 09:30 AM VA-TOBACCO USE INSULATOR HELPER NO [facility] May 14, 2022 [...] December 28, 2018 11:23 AM VA-TOBACCO USE INSULATOR HELPER NO [facility] December 28, 2018 11:23 AM VA-TOBACCO USE MED NO [facility] December 28, 2018 11:23 AM VA-TOBACCO USE WI [address] [facility] December 28, 2018 11:23 AM VA-TOBACCO USER EVERY DAY Jorge A [facility] Aug 10, 2016 09:05 AM [...] HOSPITAL Jul 08, 2017 ADVANCE DIRECTIVE DISCUSSION UPRNIMA ROJAS [facility] Radiology Reports: [...] 11:15 AM UROGRAM RETROGRADE : GALINA LOYD [id number] -1945 M Exm Date: DEC 16, 2023@11:15 Req Phys: CORBY OSORIO Pat Loc: [facility] SD SHAWN GENERAL G2RD (Req'g Img Loc: XRAY (OOS) Service: Unknown [facility] [place] [address] (Case [id number] COMPLETE) UROGRAM RETROGRADE (RAD Detailed) CPT:25304 Contrast Media : Non-ionic Iodinated Proc Modifiers : OPERATING ROOM EXAM Reason for Study: bilat ureteroscopy laser litho, stent placement Clinical History: calculus of kidney Report Status: Verified Date Reported: DEC 16, 2023 Date Verified: DEC 16, 2023 Wood Flour Miller E-Sig:/ES/BENJAMÍN PIMENTEL Report: UROGRAM RETROGRADE 12/16/2023 11:15 AM Impression: Fluoroscopy performed during urology service procedure. FINDINGS: Procedure performed with the C-arm fluoroscopy . Fluoroscopy time 55 seconds, dose 9 mGy Fluoroscopic images consistent with history of bilateral ureteroscopy and stent placement. Labels from bilateral [employer] Contour double-J ureteral stents placed on the scanned worksheet Please see procedure note for further details. HISTORY: bilat ureteroscopy laser litho, stent placement, Primary Diagnostic Code: NO IMMEDIATE ATTENTION REQUIRED Primary Interpreting Staff: BENJAMÍN PIMENTEL, Staff Physician (Wood Flour Miller) /BENJAMÍN HYLTON [facility] Pathology Reports: +/- 30 days of [...] Reporting Lab: SONYA [facility] [CLIA# [id number]] [address] [place] [address] Accession [UID]: [id number] [[id number]] Received: Nov 30, 2023@19:53 Collection sample: URINE CLEAN CATCH Collection date: Nov 29, 2023 11:27 Site/Specimen: URINE Provider: CORBY OSORIO Test(s) ordered: CULTURE,URINE CLEAN CATCH..... completed: Dec 02, 2023 13:00 * BACTERIOLOGY FINAL REPORT => Dec 02, 2023 13:01 TECH CODE: [id number] Bacteriology Remark(s): 12/02/23 50,000-99,000 CFU/mL AT LEAST THREE BACTERIAL TYPES PRESENT INDICATING POSSIBLE CONTAMINATION, PLEASE REPEAT COLLECTION. =--=--=--=--=--=--=--=--=--=--= --=--=--=--=--=--=--=--=--=--=- -=--=--=--=--=-- Performing Laboratory: Bacteriology Report Performed By: [facility] [CLIA# [id number]] [address] [facility] [place] [address] [facility] Encounter Notes: All associated encounter notes This section contains the clinical notes associated to the Encounter. Date/Time Encounter Note(s) Provider Source Dec 13, 2023 01:03 PM TELEHEALTH NOTE: LOCAL TITLE: Telehealth Red Leader Note STANDARD TITLE: TELEHEALTH NOTE DATE OF [...] always have the option to drive to [place] to see the provider in person. They [...] through an in-person visit at the nearest [place] clinical site offering the requested service, and the patient's right of refusal, at any time, for any Telehealth. Emergency contact information was obtained as follows: Current Location: [facility] Current Address: [address] [place] [address] County: [place] Emergency Contact Name: ADITI GARCIA Emergency Relationship: TCT Emergency Number: [phone] /es/ ADITI GARCIA Health Red Leader Signed: 12/20/2023 13:[address] [facility]
--- OUTSIDE RECORDS SUMMARY | 2024-07-07 22:20 | XMS_ITS ---
Author Name [place] Organization [place] Address [address] [place] [address] Care Team Providers Care Package Dye Stand Loader Name Role Phone KYRA VELASQUEZ Primary Care [...] Name Patient's Relationship to Policy Ervin [facility] (WNR) MEDICARE [facility](W NR) * Aug 23, 2023 [id number] ANNALISA LOYD ITE PATIENT [facility]CR (WNR) MEDICARE ADVANTAGE [facility] (WNR) Aug 23, 2020 [id number] [phone] ANNALISA LOYD ITE PATIENT [facility] (WNR) MEDICARE ADVANTAGE [facility](W NR) Aug 23, 2012 [id number] ANNALISA LOYD ITJannette PATIENT Selected Encounter [...] [place] [facility] Feb 21, 2024 11:00 AM AMBULATORY - NONE [place] [facility] Mar 18, 2024 12:01 AM AMBULATORY - [...] [place] [facility] [...] 10:01 AM AMBULATORY - [place] [facility] May 19, 2024 08:00 AM AMBULATORY - NONE SONYA LA [place] [facility] Active, Pending, and Scheduled Orders [...] 2024 12:13 PM Consult Order [facility]-NEUROLOGY Cons Pi/Senior Research Associate's Choice SONYA GAYLE [facility] Lab Results: +/- 30 days of the encounter This section includes the Chemistry and Hematology Lab Results on record with [place] for the patient. Radiology Reports and Pathology [...] PM Reporting Lab: [facility] [address] [facility] [address] Performing Lab: [facility] [address] [facility] [address] URINE COLOR Light-[place] NOT DEFINED SPECIFIC GRAVITY 1.013 1.003-1.030 UROBILINOGEN [...] 17, 2021 02:27 PM CURRENT SMOKER REINIER AGYLE [facility] Tobacco Use History This section [...] 2021 02:41 PM CURRENT SMOKER REINIER Bhatia [facility] Dec 08, 2020 08:45 PM VA-TOBACCO [...] 11:15 AM UROGRAM RETROGRADE : GALINA LOYD [id number] -1945 M Exm Date: DEC 16, 2023@11:15 Req Phys: CORBY OSORIO Pat Loc: [facility] SD SHAWN GENERAL G2RD (Req'g Img Loc: XRAY (OOS) Service: [place] [address] (Case 447 COMPLETE) UROGRAM RETROGRADE (RAD Detailed) CPT:15612 Contrast Media : Non-ionic Iodinated Proc Modifiers : OPERATING ROOM EXAM Reason for Study: bilat ureteroscopy laser litho, stent placement Clinical History: calculus of kidney Report Status: Verified Date Reported: DEC 16, 2023 Date Verified: DEC 16, 2023 Cigarette Machine Operator E-Sig:/ES/BENJAMÍN PIMENTEL Report: UROGRAM RETROGRADE 12/16/2023 11:15 AM Impression: Fluoroscopy performed during urology service procedure. FINDINGS: Procedure performed with the C-arm fluoroscopy . Fluoroscopy time 55 seconds, dose 9 mGy Fluoroscopic images consistent with history of bilateral ureteroscopy and stent placement. Labels from bilateral Possibility Space Contour double-J ureteral stents placed on the scanned worksheet Please see procedure note for further details. HISTORY: bilat ureteroscopy laser litho, stent placement, Primary Diagnostic Code: NO IMMEDIATE ATTENTION REQUIRED Primary Interpreting Staff: BENJAMÍN PIMENTEL, Staff Physician (Cigarette Machine Operator) /BENJAMÍN HYLTON [facility] Pathology Reports: +/- 30 days of [...] AM LR MICROBIOLOGY RE PORT: Reporting Lab: [facility] [CLIA# [id number]] [address] [place] [address] Accession [UID]: [id number] [[id number]] Received: Nov 30, 2023@19:53 Collection sample: URINE CLEAN CATCH Collection date: Nov 29, 2023 11:27 Site/Specimen: URINE Provider: CORBY OSORIO Test(s) ordered: CULTURE,URINE CLEAN CATCH..... completed: Dec 02, 2023 13:00 * BACTERIOLOGY FINAL REPORT => Dec 02, 2023 13:01 TECH CODE: [id number] Bacteriology Remark(s): 12/02/23 50,000-99,000 CFU/mL AT LEAST THREE BACTERIAL TYPES PRESENT INDICATING POSSIBLE CONTAMINATION, PLEASE REPEAT COLLECTION. =--=--=--=--=--=--=--=--=--=--= --=--=--=--=--=--=--=--=--=--=- -=--=--=--=--=-- Performing Laboratory: Bacteriology Report Performed By: SONYA PINON [facility] [CLIA# [id number]] [address] [place] [address] [facility] Encounter Notes: All associated encounter [...] Patient Name: GALINA LOYD Patient Primary Phone: [phone] Patient Primary Address: [address] [place] [id number] Patient : 1945 Patient Age: 78 Caller/Recipient Relation to Patient: Self Administrative Administrative Note Reason: Other Administrative Note Comments: Veterans Darrel called stating was seen in the ED at [facility] last night for dehydration and UTI. Cachorroue would like to schedule a post d/c follow up with PCP. Call back to schedule [phone] /vivian/ KATE DOS SANTOS VISN1 CCC AMSA Signed: 12/27/2023 09:25 Receipt Acknowledged By: 12/27/2023 09:50 /vivian/ JENIFER SHANE LPN 01/04/2024 08:48 /es/ OJ GIL RN 12/27/2023 10:00 /es/ ELSI SCHULTE 12/27/2023 ADDENDUM STATUS: COMPLETED records are requested /vivian/ JENIFER SHANE LPN Signed: 12/27/2023 09:50 KATE DOS SANTOS [facility]
--- OUTSIDE RECORDS SUMMARY | 2024-07-07 22:20 | XMS_ITS | Encounter Summary ---
Author Name [place] Address [address] [place] [address] Care Team Providers Care Robotic Machine Operator Name Role Phone KYRA VELASQUEZ [...] Ervin's Name Patient's Relationship to Policy Ervin [facility] (WNR) MEDICARE ADVANTAGE MCR(W NR) * Aug 23, 2023 [id number] ANNALISA LOYD ITE PATIENT [facility] (WNR) MEDICARE ADVANTAGE [facility] (WNR) Aug 23, 2020 [id number] [phone] ANNALISA LOYD ITE PATIENT [facility] (WNR) MEDICARE [facility](W NR) Aug 23, 2012 [id number] ANNALISA LOYD ITE PATIENT Selected Encounter [...] activities for the patient from all [place] treatmentfaunc health johnstonities. This section includes future appointments and future [...] - NONE [place] [facility] Feb 21, 2024 11:00 AM AMBULATORY - NONE [place] [facility] Mar 18, 2024 12:01 AM AMBULATORY - NONE [place] [facility] Apr 06, 2024 01:00 PM AMBULATORY - NONE [place] [facility] Apr 06, 2024 01:00 PM AMBULATORY - MEDICINE [facility] Apr 10, 2024 01:30 PM AMBULATORY - MEDICINE [facility] Apr 10, 2024 01:31 PM AMBULATORY - NONE [place] [facility] Apr 11, 2024 10:00 AM AMBULATORY - SURGERY [facility] Apr 11, 2024 10:01 AM AM[place]UL[place]ORY [place] [facility] Apr 21, 2024 10:30 AM AMBULATORY - NONE [place] [facility] May 03, 2024 02:30 PM AMBULATORY - [place] [facility] May 04, 2024 10:30 AM AMBULATORY [place] [facility] May 04, 2024 11:00 AM AMBULATORY - [place]GERY [place] [facility] May 04, 2024 12:30 PM AMBULATORY - NONE [place] [facility] May 04, 2024 01:00 PM AMBULATORY - [place] [facility] May 08, 2024 02:30 PM AMBULATORY - MEDICINE [facility] May 08, 2024 02:31 PM AMBULATORY - NONE [place] [facility] May 16, 2024 10:00 AM AMBULATORY - SURGERY [facility] May 16, 2024 10:01 AM AMBULATORY - [place] [facility] May 19, 2024 08:00 AM AMBULATORY - NONE SONYA LAI [facility] Active, Pending, and Scheduled Orders This [...] 12:13 PM Consult Order [facility]NEUROLOGY Cons Industrial Boilermaker's Choice SONYA GAYLE [facility] Lab Results: +/- 30 days of the encounter This section includes the Chemistry and Hematology Lab Results on record with [place] for the patient. Radiology Reports and Pathology [...] [facility] [address] [facility] [address] Performing Lab: [facility] [address] [facility] [address] URINE COLOR Light-[place] NOT DEFINED SPECIFIC GRAVITY 1.013 1.003-1.030 UROBILINOGEN [...] 11:15 AM UROGRAM RETROGRADE : GALINA LOYD [id number] -1945 M Exm Date: DEC 16, 2023@11:15 Req Phys: CORBY OSORIO Pat Loc: [facility] SD SHAWN GENERAL G2RD (Req'g Img Loc: XRAY (OOS) Service: [place] [address] (Case 447 COMPLETE) UROGRAM RETROGRADE (RAD Detailed) CPT:14890 Contrast Media : Non-ionic Iodinated Proc Modifiers : OPERATING ROOM EXAM Reason for Study: bilat ureteroscopy laser litho, stent placement Clinical History: calculus of kidney Report Status: Verified Date Reported: DEC 16, 2023 Date Verified: DEC 16, 2023 Foreclosure Home Inspector E-Sig:/ES/BENJAMÍN PIMENTEL Report: UROGRAM RETROGRADE 12/16/2023 11:15 AM Impression: Fluoroscopy performed during urology service procedure. FINDINGS: Procedure performed with the C-arm fluoroscopy . Fluoroscopy time 55 seconds, dose 9 mGy Fluoroscopic images consistent with history of bilateral ureteroscopy and stent placement. Labels from bilateral Checkd.In Contour double-J ureteral stents placed on the scanned worksheet Please see procedure note for further details. HISTORY: bilat ureteroscopy laser litho, stent placement, Primary Diagnostic Code: NO IMMEDIATE ATTENTION REQUIRED Primary Interpreting Staff: BENJAMÍN PIMENTEL, Staff Physician (Miah) /BENJAMÍN HYLTON [facility] Pathology Reports: [...] comes from all [place] treatment facilities. Date/Time Pathology Report Provider Source Nov 29, 2023 11:27 AM LR MICROBIOLOGY RE PORT: Reporting Lab: [facility] [CLIA# [id number]] [address] [facility] [place] [address] Accession [UID]: [id number] [[id number]] Received: Nov 30, 2023@19:53 Collection sample: URINE CLEAN CATCH Collection date: Nov 29, 2023 11:27 Site/Specimen: URINE Provider: CORBY OSORIO Test(s) ordered: CULTURE,URINE CLEAN CATCH..... completed: Dec 02, 2023 13:00 * BACTERIOLOGY FINAL REPORT => Dec 02, 2023 13:01 TECH CODE: [id number] Bacteriology Remark(s): 12/02/23 50,000-99,000 CFU/mL AT LEAST THREE BACTERIAL TYPES PRESENT INDICATING POSSIBLE CONTAMINATION, PLEASE REPEAT COLLECTION. =--=--=--=--=--=--=--=--=--=--= --=--=--=--=--=--=--=--=--=--=- -=--=--=--=--=-- Performing Laboratory: Bacteriology Report Performed By: SONYA GAYLE [facility] [CLIA# [id number]] [address] [place] [address] [facility] Encounter Notes: All associated encounter [...] Contact: Notified from ECR worklist Notification ID: [id number] [facility] Referral #: [facility] Hospital Name: Hospital: [facility] Address: City: [facility] State: [place] Zip Code: [address] Phone : [facility] Facility Point of Contact: Name: Phone: Chief complaint: UTI Primary Diagnosis: Disposition Unknown at time of intake note entry Records have been scanned into CPRS with PCP sign off. /es/ PILAR TOBAR, RN EMERGENCY BOAT TESTER Signed: 12/28/2023 09:47 01/05/2024 ADDENDUM STATUS: COMPLETED Notification ID # [id number] EOC approved under 1703 by the National ER Notification Team [employer] Referral # [id number] /vivian/ ADITI SANCHEZ Signed: 01/05/2024 06:25 [facility]
--- OUTSIDE RECORDS SUMMARY | 2024-07-07 22:21 | XMS_ITS ---
Author Name [place] Address [address] [place] [address] Care Team Providers Care Relations Specialist Name Role Phone KYRA VELASQUEZ Primary [...] Patient's Relationship to Policy Ervin [facility] (WNR) MEDICARE ADVANTAGE MCR(W NR) * Aug 23, 2023 [id number] ANNALISA LOYD ITE PATIENT [facility] (WNR) MEDICARE ADVANTAGE [facility] (WNR) Aug 23, 2020 [id number] [phone] ANNALISA LOYD ITE PATIENT [facility] (WNR) MEDICARE [facility](W NR) Aug 23, 2012 [id number] ANNALISA LOYD ITE PATIENT Selected Encounter [...] activities for the patient from all [place] treatment[facility] [place]. This section includes future appointments and future [...] - NONE [place] [facility] Feb 21, 2024 11:00 AM AMBULATORY - NONE [place] [facility] Mar 18, 2024 12:01 AM AMBULATORY - NONE [place] [facility] Apr 06, 2024 01:00 PM AMBULATORY - NONE [place] [facility] Apr 06, 2024 01:00 PM AMBULATORY - MEDICINE [facility] Apr 10, 2024 01:30 PM AMBULATORY - MEDICINE [facility] Apr 10, 2024 01:31 PM AMBULATORY - NONE [place] [facility] Apr 11, 2024 10:00 AM AMBULATORY - SURGERY [facility] Apr 11, 2024 10:01 AM AMBULATORY [place] [facility] Apr 21, 2024 10:30 AM AMBULATORY - NONE [place] [facility] May 03, 2024 02:30 PM AMBULATORY - [place] [facility] May 04, 2024 10:30 AM [place]BUL[place]ORY [place] [facility] May 04, 2024 11:00 AM AMBULATORY - [place]GERY [place] [facility] May 04, 2024 12:30 PM AMBULATORY - NONE [place] [facility] May 04, 2024 01:00 PM AMBULATORY - [place]GERY [place] [facility] May 08, 2024 02:30 PM AMBULATORY - MEDICINE [facility] May 08, 2024 02:31 PM AMBULATORY - NONE [place] [facility] May 16, 2024 10:00 AM AMBULATORY - SURGERY [facility] May 16, 2024 10:01 AM AMBULATORY - [place] [facility] May 19, 2024 08:00 AM AMBULATORY - NONE SONYA LAI [facility] Active, Pending, and [...] 12:13 PM Consult Order COMMUNITY CARE-NEUROLOGY Cons Public Health Representative's Choice [facility] Social History: Smoking Status [...] 2021 02:41 PM CURRENT SMOKER REINIER GAYLE [facility] Dec 08, 2020 08:45 PM [...] Source Nov 18, 2017 ADVANCE DIRECTIVE REBECCARADHA Weiner [facility] Jul 08, 2017 ADVANCE DIRECTIVE DISCUSSION ROJAS,PURNIMA Jannette [facility] Radiology Reports: +/- 30 [...] AM RENAL AND BLADDER ULTRASOUND: GALINA LOYD [id number] -1945 M Exm Date: FEB 21, 2024@11:00 Req Phys: BRITTNEY SOTO Loc: [facility]N OR [place] G2RD (Req'g L Img Loc: ULTRASOUND (OOS) Service: [place] [address] (Case [id number] COMPLETE) ULTRASOUND RENAL (US Detailed) CPT:62761 Reason for Study: US following ureteral stent removal, eval hydro/stones (Case 56 COMPLETE) ULTRASOUND PELVIS (US Detailed) CPT:66284 Clinical History: Please coordinate with Urology follow up in 3 months Report Status: Verified Date Reported: FEB 21, 2024 Date Verified: FEB 21, 2024 Manager Media E-Sig:/ES/BRITTNEY PEDERSEN Report: Ultrasound -- renal/bladder: COMPARISON: [...] Primary Interpreting Staff: BRITTNEY PEDERSEN, RADIOLOGY ATTENDING (Manager Media) /BRITTNEY FREIRE T [facility] Encounter Notes: All [...] Care Consult: COMMUNITY CARE-NEUROLOGY Consult No: [id number] [facility] Referral #: [id number] Community Provider or Hospital Information Community Provider Information [facility] [address], [place] [address] Provisional Diagnosis: Other Seizures(ICD-10-CM G40.89) 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 Unknown Level of Care Coordination Complex/Chronic Care Coordination was determined from: Chart Review Facility Community Care Office Contact Care Coordination Point of Contact: [facility] Services: Moderate Care Coordination Services Case Management, if appropriate Direct communications with interdisciplinary team Plan: Referral sent to [facility]. Referral is valid for 180 days starting on the first appt date. /vivian/ GAGANDEEP CHUNG RN Signed: 01/26/2024 08:46 GAGANDEEP CHUNG [facility]
--- OUTSIDE RECORDS SUMMARY | 2024-07-07 22:21 | XMS_ITS ---
[place] ANESTHESIA PRE/POST-OP CONSULT SONYA WILLIAMSONTobi [facility] Encounter Summary Created on: July 07, 2024 GALINA LOYDEN : 1945 Sex: Male Author Name Department [place] Organization [place] Address [address] [place] [address] Care Team Providers Care Agriculture Technician Name Role Phone RONKYRA Primary Care Provider [...] ADVANTAGE MCR(W NR) * Aug 23, 2023 [id number] ANNALISA LOYD ITE PATIENT [facility] (WNR) MEDICARE ADVANTAGE [facility] (WNR) Aug 23, 2020 [id number] [phone] ANNALISA LOYD ITE PATIENT [facility] (WNR) MEDICARE [facility](W NR) Aug 23, 2012 [id number] 03 [phone] ANNALISA LOYD ITJannette PATIENT Selected Encounter This section includes the information on record at [place] for the Encounter. Date/Time Encounter Type Encounter Description Reason Pro vider Source Dec 16, 2023 10:59 AM Outpatient Encounter ANESTHESIA PRE/POST-OP CONSULT MELISSA JAVIER Encounter Template Text not used by [place] [...] SURGERY [place] [facility] May 04, 2024 10:30 AM AMBULATORY - [place]IC[place] [facility] May 04, 2024 11:00 AM AMBULATORY - SURGERY [place] [facility] May 04, 2024 12:30 PM AMBULATORY - NONE [place] [facility] May 04, 2024 01:00 PM AMBULATORY - SURGERY [place] [facility] May 08, 2024 02:30 PM AMBULATORY - MEDICINE [facility] May 08, 2024 02:31 PM AMBULATORY - NONE [place] [facility] May 16, 2024 10:00 AM [...] 12:13 PM Consult Order [facility]-NEUROLOGY Cons Shop Tech's Choice [facility] Lab [...] [facility] [address] [address] Performing Lab: [facility] [address] [address] URINE COLOR [place] NOT DEFINED SPECIFIC GRAVITY 1.013 1.003-1.030 UROBILINOGEN [...] REINIER Bhatia [facility] Tobacco Use [...] 11:15 AM UROGRAM RETROGRADE : GALINA LOYD [id number] -1945 M Exm Date: DEC 16, 2023@11:15 Req Phys: CORBY OSORIO Pat Loc: [facility]N GENERAL G2RD (Req'g Img Loc: XRAY (OOS) Service: [place] [address] (Case [id number] COMPLETE) UROGRAM RETROGRADE (RAD Detailed) CPT:54363 Contrast Media : Non-ionic Iodinated Proc Modifiers : OPERATING ROOM EXAM Reason for Study: bilat ureteroscopy laser litho, stent placement Clinical History: calculus of kidney Report Status: Verified Date Reported: DEC 16, 2023 Date Verified: DEC 16, 2023 Airport Operations Manager E-Sig:/PARIS/BENJAMÍN PIMENTEL Report: UROGRAM RETROGRADE 12/16/2023 11:15 AM Impression: Fluoroscopy performed during urology service procedure. FINDINGS: Procedure performed with the C-arm fluoroscopy . Fluoroscopy time 55 seconds, dose 9 mGy Fluoroscopic images consistent with history of bilateral ureteroscopy and stent placement. Labels from bilateral [place] [employer] Contour double-J ureteral stents placed on the scanned worksheet Please see procedure note for further details. HISTORY: bilat ureteroscopy laser litho, stent placement, Primary Diagnostic Code: NO IMMEDIATE ATTENTION REQUIRED Primary Interpreting Staff: BENJAMÍN PIMENTEL, Staff Physician (Airport Operations Manager) /BENJAMÍN HYLTON [facility] Pathology Reports: +/- 30 days of the [...] MICROBIOLOGY RE PORT: Reporting Lab: SONYA PINON [facility] [CLIA# [id number]] [address] [place] [address] Accession [UID]: [id number] [[id number]] Received: Nov 30, 2023@19:53 Collection sample: URINE CLEAN CATCH Collection date: Nov 29, 2023 11:27 Site/Specimen: URINE Provider: CORBY OSORIO Test(s) ordered: CULTURE,URINE CLEAN CATCH..... completed: Dec 02, 2023 13:00 * BACTERIOLOGY FINAL REPORT => Dec 02, 2023 13:01 TECH CODE: [id number] Bacteriology Remark(s): 12/02/23 50,000-99,000 CFU/mL AT LEAST THREE BACTERIAL TYPES PRESENT INDICATING POSSIBLE CONTAMINATION, PLEASE REPEAT COLLECTION. =--=--=--=--=--=--=--=--=--=--= --=--=--=--=--=--=--=--=--=--=- -=--=--=--=--=-- Performing Laboratory: Bacteriology Report Performed By: SONYA PIN[facility] [CLIA# [id number]] [address] [place] [address] [facility]
--- OUTSIDE RECORDS SUMMARY | 2024-07-07 22:21 | XMS_ITS ---
Author Name Department [place] Organization [place] Address [address] [place] [address] Care Team Providers Care Electric Welder Name Role Phone KYRA VELASQUEZ Primary Care [...] Name Patient's Relationship to Policy Ervin [facility] (WNR) MEDICARE ADVANTAGE MCR(W NR) * Aug 23, 2023 [id number] ANNALISA LOYD ITE PATIENT [facility] (WNR) MEDICARE [facility] (WNR) Aug 23, 2020 [id number] [phone] ANNALISA LOYD ITE PATIENT [facility] (WNR) MEDICARE ADVANTAGE MCR(W NR) Aug 23, 2012 [id number] ANNALISA LOYD ITE PATIENT Selected Encounter This section includes the information on record at [place] for the Encounter. Date/Time Encounter Type Encounter Description Reason Pro vider Source January 18, 2024 12:00 PM Outpatient Encounter TELEPHONE TRIAGE IHE Encounter Template Text not used by [place] Plan of Treatment: Future Appointments (+ 6 months) and Future Tests (+/- 45 days) The Plan of Treatment section includes future care activities for the patient from all [place] treatmentfaatrium health stanlyities. This section includes future appointments and future [...] AMBULATORY - NONE [place] [facility] Feb 21, 2024 11:00 AM AMBULATORY - NONE [place] [facility] Mar 18, 2024 12:01 AM AMBULATORY - NONE [place] [facility] Apr 06, 2024 01:00 PM AMBULATORY - NONE [place] [facility] Apr 06, 2024 01:00 PM AMBULATORY - MEDICINE [facility] Apr 10, 2024 01:30 PM AMBULATORY - MEDICINE [facility] Apr 10, 2024 01:31 PM AMBULATORY - NONE [place] [facility] Apr 11, 2024 10:00 AM AMBULATORY - SURGERY [facility] Apr 11, 2024 10:01 AM AMBUL[place]ORY [place] [facility] Apr 21, 2024 10:30 AM AMBULATORY - NONE [place] [facility] May 03, 2024 02:30 PM AMBULATORY - [place]GERY [place] [facility] May 04, 2024 10:30 AM AMBULATORY [place]IC[place] [facility] May 04, 2024 11:00 AM AMBULATORY - [place]GERY [place] [facility] May 04, 2024 12:30 PM AMBULATORY - NONE [place] [facility] May 04, 2024 01:00 PM AMBULATORY - [place]GERY [place] [facility] May 08, 2024 02:30 PM AMBULATORY - MEDICINE [facility] May 08, 2024 02:31 PM AMBULATORY - NONE [place] [facility] May 16, 2024 10:00 AM AMBULATORY - SURGERY [facility] May 16, 2024 10:01 AM AMBULATORY - [place]GERY [place] [facility] May 19, 2024 08:00 AM AMBULATORY - NONE SONYA ME JOELLE [facility] Active, Pending, and Scheduled Orders This section [...] 12:13 PM Consult Order COMMUNITY CARE-NEUROLOGY Cons Audit Analyst's Choice [facility] Social History: Smoking Status [...] 02:27 PM CURRENT SMOKER REINIER GAYLE [facility] Tobacco Use History This section includes a [...] 18, 2017 ADVANCE DIRECTIVE REBECCARADHA SONYA GAYLE [facility] Jul 08, 2017 ADVANCE DIRECTIVE DISCUSSION PURNIMA ROJAS SONYA GAYLE [facility] Encounter Notes: All associated [...] many days left? 12 [ X ] [place] Pharmacy FUTURE APPOINTMENTS Future Appointments - Feb@10:15 JACY POND MD 2 M2RE Feb@11:00 JACY RAD ULTRASOUND 15 B1RC Feb@13:00 LIT PA Feb@14:00 LIT-V01 [facility] PACTobi GARRIDO 08 PT Feb@14:00 LIT TH NUTRITION PAT Feb@14:01 [facility] TH NUTRITION E RD Apr@10:30 [facility] RAD LYNN PREP B1 Apr@11:00 [facility] VASCULAR LAB M3 Apr@12:[address] [facility] RAD [address] SCAN 15 Apr@13:00 [facility] VASCULAR 15 M3RH /vivian/ DWIGHT GALE AMSA Signed: 01/18/2024 12:02 Receipt Acknowledged By: 01/19/2024 10:50 /vivian/ JENIFER SHANE LPN 01/18/2024 12:13 /vivian/ KYRA VELASQUEZ M.D INTERNAL MEDICINE, [facility] * AWAITING SIGNATURE * OJ GIL 01/19/2024 ADDENDUM STATUS: COMPLETED Request os faxed to neurologist in [facility] /vivian/ JENIFER SHANE LPN Signed: 01/19/2024 10:49 KYRA VELASQUEZ [facility] January 18, 2024 12:00 PM PRIMARY [...] many days left? 12 [ X ] [place] Pharm[facility] FUTURE APPOINTMENTS Future Appointments - Feb@10:15 JACY POND MD 2 M2RE Feb@11:00 [facility] RAD ULTRASOUND 15 Feb@13:00 LIT PA Feb@14:00 LIT-V01 SANJUANA TALBOT MD 08 PT Feb@14:00 [facility] NUTRITION PAT Feb@14:01 [facility] TH NUTRITION E RD Apr@10:30 [facility] RAD LYNN PREP [facility] Apr@11:00 [facility] VASCULAR LAB M3 Apr@12:[address] [facility] [address] SCAN 15 B1RC Apr@13:00 [facility] VASCULAR 15 [facility] /es/ DWIGHT BECKWITH Signed: 01/18/2024 12:02 Receipt Acknowledged By: 01/19/2024 10:50 /vivian/ JENIFER SHANE LPN 01/18/2024 12:13 /vivian/ KYRA VELASQUEZ M.D INTERNAL MEDICINE, [facility] 01/20/2024 11:13 /vivian/ OJ GIL RN 01/18/2024 ADDENDUM STATUS: COMPLETED pt followed by [facility] neurology for seizure d/o -this medication should come from [facility] neurology. new consult entered. please convey to office /vivian/ KYRA VELASQUEZ M.D INTERNAL MEDICINE, [facility] Signed: 01/18/2024 12:13 Receipt Acknowledged By: 01/20/2024 11:12 /vivian/ OJ GIL RN 01/19/2024 ADDENDUM STATUS: COMPLETED Request os faxed to neurologist in [facility] /vivian/ JENIFER SHANE LPN Signed: 01/19/2024 10:49 [...] instruction around renewal is unclear to this senior technical writer. /es/ GIOVANNI beckwith Signed: 01/24/2024 12:02 [facility]
--- OUTSIDE RECORDS SUMMARY | 2024-07-07 22:21 | XMS_ITS | Encounter Summary ---
Author Name Department [place] Organization [place] Address [address] [place] [address] Care Team Providers Care Superintendent System Operation Name Role Phone RON KYRA Primary Care [...] to Policy Ervin [facility] (WNR) MEDICARE [facility](W NR) * Aug 23, 2023 [id number] ANNALISA LOYD ITE PATIENT [facility] (WNR) MEDICARE ADVANTAGE [facility] (WNR) Aug 23, 2020 [id number] [phone] ANNALISA LOYD ITE PATIENT [facility] (WNR) MEDICARE ADVANTAGE [facility](W NR) Aug 23, 2012 [id number] ANNALISA LOYD ITE PATIENT Selected Encounter This section includes the information on record at [place] for the Encounter. Date/Time Encounter Type Encounter Description Reason Provider Source Dec 16, 2023 11:04 AM Outpatient Encounter PATIENT CARE IN OR CORBY OSORIO [facility] Encounter Template Text not used by [place] [...] [place] [facility] Feb 21, 2024 10:15 AM AMBULATORY - NONE [place] [facility] Feb 21, 2024 11:00 AM AMBULATORY - NONE [place] [facility] Mar 18, 2024 12:01 AM AMBULATORY - NONE [place] [facility] Apr 06, 2024 01:00 PM AMBULATORY - NONE [place] [facility] Apr 06, 2024 01:00 PM AMBULATORY - MEDICINE [facility] Apr 10, 2024 01:30 PM AMBULATORY - MEDICINE [facility] Apr 10, 2024 01:31 PM AMBULATORY - NONE [place] [facility] Apr 11, 2024 10:00 AM AMBULATORY - SURGERY [facility] Apr 11, 2024 10:01 AM AMBULATORY - [place] [facility] Apr 21, 2024 10:30 AM AMBULATORY - NONE [place] [facility] May 03, 2024 02:30 PM AMBULATORY - [place]GERY [place] [facility] May 04, 2024 10:30 AM AMBUL[place]ORY [place]IC[place] [facility] May 04, 2024 11:00 AM AMBULATORY - [place]GERY [place] [facility] May 04, 2024 12:30 PM AMBULATORY - NONE [place] [facility] May 04, 2024 01:00 PM AMBULATORY - [place]GERY [place] [facility] May 08, 2024 02:30 PM AMBULATORY - MEDICINE [facility] May 08, 2024 02:31 PM AMBULATORY - NONE [place] [facility] May 16, 2024 10:00 AM AMBULATORY - [...] 2024 12:13 PM Consult Order [facility]-NEUROLOGY Cons Contract Engineer's Choice [facility] Lab Results: +/- [...] Reporting Lab: [facility] [address] [facility] [address] Performing Lab: [facility] [address] [facility] [address] URINE COLOR [place] NOT DEFINED SPECIFIC GRAVITY 1.013 1.003-1.030 UROBILINOGEN [...] 136/84 20 96 0 69 122.3 18 [facility] Social History: Smoking Status [...] 11:15 AM UROGRAM RETROGRADE : GALINA LOYD [id number] -1945 M Exm Date: DEC 16, 2023@11:15 Req Phys: CORBY OSORIO QUIÑONES Pat Loc: [facility] GENERAL G2RD (Req'g Img Loc: XRAY (OOS) Service: [place] [address] (Case [id number] COMPLETE) UROGRAM RETROGRADE (RAD Detailed) CPT:56053 Contrast Media : Non-ionic Iodinated Proc Modifiers : OPERATING ROOM EXAM Reason for Study: bilat ureteroscopy laser litho, stent placement Clinical History: calculus of kidney Report Status: Verified Date Reported: DEC 16, 2023 Date Verified: DEC 16, 2023 Guest Services Representative E-Sig:/PARIS/BENJAMÍN PIMENTEL Report: UROGRAM RETROGRADE 12/16/2023 11:15 AM Impression: Fluoroscopy performed during urology service procedure. FINDINGS: Procedure performed with the C-arm fluoroscopy . Fluoroscopy time 55 seconds, dose 9 mGy Fluoroscopic images consistent with history of bilateral ureteroscopy and stent placement. Labels from bilateral [employer] [employer] Contour double-J ureteral stents placed on the scanned worksheet Please see procedure note for further details. HISTORY: bilat ureteroscopy laser litho, stent placement, Primary Diagnostic Code: NO IMMEDIATE ATTENTION REQUIRED Primary Interpreting Staff: BENJAMÍN PIMENTEL, Staff Physician (Guest Services Representative) /BENJAMÍN HYLTON [facility] Pathology Reports: +/- [...] MICROBIOLOGY RE PORT: Reporting Lab: SONYA [facility] [CLIA# [id number]] [address] [place] [address] Accession [UID]: [id number] [[id number]] Received: Nov 30, 2023@19:53 Collection sample: URINE CLEAN CATCH Collection date: Nov 29, 2023 11:27 Site/Specimen: URINE Provider: CORBY OSORIO Test(s) ordered: CULTURE,URINE CLEAN CATCH..... completed: Dec 02, 2023 13:00 * BACTERIOLOGY FINAL REPORT => Dec 02, 2023 13:01 TECH CODE: [id number] Bacteriology Remark(s): 12/02/23 50,000-99,000 CFU/mL AT LEAST THREE BACTERIAL TYPES PRESENT INDICATING POSSIBLE CONTAMINATION, PLEASE REPEAT COLLECTION. =--=--=--=--=--=--=--=--=--=--= --=--=--=--=--=--=--=--=--=--=- -=--=--=--=--=-- Performing Laboratory: Bacteriology Report Performed By: SONYA PIN[facility] [CLIA# [id number]] [address] [place] [address] [facility]
--- OUTSIDE RECORDS SUMMARY | 2024-07-07 22:21 | XMS_ITS | Encounter Summary ---
Author Name [facility] [place] Address [address] [place] [address] Care Team Providers Care Sample Collector Name Role Phone KYRA VELASQUEZ Primary Care [...] Policy Ervin [facility] (WNR) MEDICARE [facility](W NR) * Aug 23, 2023 [id number] ANNALISA LOYD ITE PATIENT [facility] MCR (WNR) MEDICARE ADVANTAGE [facility] (WNR) Aug 23, 2020 [id number] [phone] ANNALISA LOYD ITE PATIENT [facility] (WNR) MEDICARE ADVANTAGE [facility](W NR) Aug 23, 2012 [id number] ANNALISA LOYD ITJannette PATIENT Selected Encounter [...] [place] [facility] Feb 21, 2024 11:00 AM AMBULATORY - NONE [place] [facility] Mar 18, 2024 12:01 AM AMBULATORY - NONE [place] [facility] Apr 06, 2024 01:00 PM AMBULATORY - NONE [place] [facility] Apr 06, 2024 01:00 PM AMBULATORY - MEDICINE [facility] Apr 10, 2024 01:30 PM AMBULATORY - MEDICINE [facility] Apr 10, 2024 01:31 PM AMBULATORY - NONE [place] [facility] Apr 11, 2024 10:00 AM AMBULATORY - SURGERY [facility] Apr 11, 2024 10:01 AM AMBULATORY [place] [facility] Apr 21, 2024 10:30 AM AMBULATORY - NONE [place] [facility] May 03, 2024 02:30 PM AMBULATORY [place] [facility] May 04, 2024 10:30 AM [place]UL[place] [facility] May 04, 2024 11:00 AM AMBULATORY - [place] [facility] May 04, 2024 12:30 PM AMBULATORY - NONE [place] [facility] May 04, 2024 01:00 PM AMBULATORY - [place] [facility] May 08, 2024 02:30 PM AMBULATORY - MEDICINE [facility] May 08, 2024 02:31 PM AMBULATORY - NONE [place] [facility] May 16, 2024 10:00 AM AMBULATORY - SURGERY [facility] May 16, 2024 10:01 AM AMBULATORY - SURGERY [place] [facility] May 19, 2024 08:00 AM AMBULATORY - NONE [facility] Active, Pending, and Scheduled [...] 12:13 PM Consult Order COMMUNITY CARE-NEUROLOGY Cons Jetting Machine Operator's Choice [facility] Social History: Smoking Status (Most current) [...] PM CURRENT SMOKER REINIER GAYLE [facility] Tobacco Use History This section includes [...] 2021 02:41 PM CURRENT SMOKER REINIER GAYLE [facility] Dec 08, 2020 08:45 PM VA-TOBACCO [...] 11:15 AM UROGRAM RETROGRADE : GALINA LOYD [id number] -1945 M Exm Date: DEC 16, 2023@11:15 Req Phys: CORBY OSORIO Pat Loc: [facility] GENERAL G2RD (Req'g Img Loc: XRAY (OOS) Service: [place] [facility] [place] [address] (Case [id number] COMPLETE) UROGRAM RETROGRADE (RAD Detailed) CPT:86297 Contrast Media : Non-ionic Iodinated Proc Modifiers : OPERATING ROOM EXAM Reason for Study: bilat ureteroscopy laser litho, stent placement Clinical History: calculus of kidney Report Status: Verified Date Reported: DEC 16, 2023 Date Verified: DEC 16, 2023 Loading Dock Helper E-Sig:/ES/BENJAMÍN PIMENTEL Report: UROGRAM RETROGRADE 12/16/2023 11:15 AM Impression: Fluoroscopy performed during urology service procedure. FINDINGS: Procedure performed with the C-arm fluoroscopy . Fluoroscopy time 55 seconds, dose 9 mGy Fluoroscopic images consistent with history of bilateral ureteroscopy and stent placement. Labels from bilateral [employer] Contour double-J ureteral stents placed on the scanned worksheet Please see procedure note for further details. HISTORY: bilat ureteroscopy laser litho, stent placement, Primary Diagnostic Code: NO IMMEDIATE ATTENTION REQUIRED Primary Interpreting Staff: BENJAMÍN PIMENTEL, Staff Physician (Loading Dock Helper) /BENJAMÍN HYLTON [facility] Encounter Notes: All associated encounter notes This [...] Patient Name: GALINA LOYD Patient Primary Phone: [phone] Patient Primary Address: [address] [place] [id number] Patient : 1945 Patient Age: 78 Caller/Recipient Relation to Patient: Self Administrative Administrative Note Reason: Medication Renewal [facility] Medications Refill/Renewal Request: Rx #[id number] - DRESS,MEPILEX BORDER FLEX 4X4IN #[id number] Spouse states that she is using 3 + of them due to redness of the tailbone. Does not want it to get worse so has been adding extra padding. requesting earlier then 01/2024. Spouse would like call back to discuss and denies [facility] triage at time of call. /vivian/ FELIPE ABAD [facility] Signed: 12/30/2023 11:05 Receipt Acknowledged By: 12/30/2023 16:14 /vivian/ KYRA VELASQUEZ M.D INTERNAL MEDICINE, [facility] 01/03/2024 09:57 /vivian/ OJ GIL RN 12/30/2023 ADDENDUM STATUS: COMPLETED new rx for mepilex placed with increased dosing from twice weekly to q36 hours /vivian/ KYRA VELASQUEZ M.D INTERNAL MEDICINE, [facility] Signed: 12/30/2023 16:15 FELIPE ABAD [facility]
--- OUTSIDE RECORDS SUMMARY | 2024-07-07 22:21 | XMS_ITS | Encounter Summary ---
Author Name [facility] [place] Address [address] [place] [address] Care Team Providers Care Junior Manufacturing Engineer Name Role Phone KYRA VELASQUEZ Primary [...] Policy Ervin [facility] (WNR) MEDICARE [facility](W NR) * Aug 23, 2023 [id number] ANNALISA LOYD ITE PATIENT [facility] MCR (WNR) MEDICARE ADVANTAGE [facility] (WNR) Aug 23, 2020 [id number] [phone] ANNALISA LOYD ITE PATIENT [facility] (WNR) MEDICARE ADVANTAGE [facility](W NR) Aug 23, 2012 [id number] 03 ANNALISA LOYD ITJannette PATIENT Selected Encounter This section includes the information on record at [place] for the Encounter. Date/Time Encounter Type Encounter Description Reason Pro vider Source Feb 16, 2024 11:31 AM Outpatient Encounter ADMIN PAT ACTIVTIES (MASNONCT) IHE Encounter Template Text not used by [place] Plan of Treatment: Future Appointments (+ 6 months) and Future Tests (+/- 45 days) The Plan of Treatment section includes future care activities for the patient from all [place] treatmentfacilities. This section includes future appointments and [...] 10:01 AM AMBULATORY - SURGERY [place] [facility] May 19, 2024 08:00 AM AMBULATORY - NONE [facility] Active, Pending, and Scheduled Orders [...] 12:13 PM Consult Order COMMUNITY CARE-NEUROLOGY Cons Blood Bank Worker's Choice [facility] Social History: Smoking Status [...] 02:27 PM CURRENT SMOKER REINIER GAYLE [facility] Tobacco Use History This section includes a [...] 02:41 PM CURRENT SMOKER REINIER GAYLE [facility] Dec 08, 2020 08:45 PM VA-TOBACCO USER [...] 2017 ADVANCE DIRECTIVE DISCUSSION PURNIMA ROJAS Jannette [facility] Radiology Reports: +/- 30 [...] AM RENAL AND BLADDER ULTRASOUND: GALINA LOYD [id number] -1945 M Exm Date: FEB 21, 2024@11:00 Req Phys: BRITTNEY SOTO Pat Loc: [facility] [place] G2RD (Req'g L Img Loc: ULTRASOUND (OOS) Service: Unknown [facility] [address] (Case [id number] COMPLETE) ULTRASOUND RENAL (US Detailed) CPT:49461 Reason for Study: US following ureteral stent removal, eval hydro/stones (Case [id number] COMPLETE) ULTRASOUND PELVIS (US Detailed) CPT:44077 Clinical History: Please coordinate with Urology follow up in 3 months Report Status: Verified Date Reported: FEB 21, 2024 Date Verified: FEB 21, 2024 Biomedical Equipment Tech E-Sig:/VIVIAN/BRITTNEY PEDERSEN Report: Ultrasound -- renal/bladder: COMPARISON: [...] Primary Interpreting Staff: BRITTNEY PEDERSEN, RADIOLOGY ATTENDING (Biomedical Equipment Tech) /BRITTNEY FREIRE [facility] Encounter Notes: All [...] This medication is no longer covered under [place] Pharmacy benefit. This item will remain available [...] 02/16/2024 11:32 Receipt Acknowledged By: 02/16/2024 11:37 /es/ KLAUDIA VALDIVIA JR, PA-[facility]
--- OUTSIDE RECORDS SUMMARY | 2024-07-07 22:21 | XMS_ITS | Encounter Summary ---
Author Name [facility] [facility] [place] [facility] [place] Address [address] [place] [address] Care Team Providers Care Clinical Systems Analyst Name Role Phone RON KYRA [...] Ervin's Name Patient's Relationship to Policy Ervin [facility] (WNR) MEDICARE [facility](W NR) * Aug 23, 2023 [id number] ANNALISA EDUARDO ITE PATIENT [facility] (WNR) MEDICARE ADVANTAGE [facility] (WNR) Aug 23, 2020 [id number] [phone] ANNALISA EDUARDO ITE PATIENT [facility] (WNR) MEDICARE ADVANTAGE [facility](W NR) Aug 23, 2012 [id number] ANNALISA EDUARDO PATIENT Selected Encounter This section includes the information on record at [place] for the Encounter. Date/Time Encounter Type Encounter Description Reason Provider Source Feb 21, 2024 10:15 AM OFFICE O/P EST HI 40 MIN GERIPACT ICD-10-CM F01.A3 Vascular dementia, mild, with mood disturbance CRESENCIO MEDINA [facility] Encounter Template Text not used by [place] Assessments - Encounter Diagnoses This section includes the primary and secondary diagnoses documented for the Encounter. Date/Time Primary/Secondary Diagnosis Diagnosis Name Provider Source Feb 21, 2024 01:51 PM PRIMARY Vascular dementia, mild, with mood disturbance ADAMCRESENCIO Husam SONYA [facility] Feb 21, 2024 01:51 PM SECONDARY Essential (primary) hypertension ADAMCRESENCIO [facility] Plan of Treatment: Future Appointments (+ 6 months) and Future Tests (+/- 45 days) The Plan of Treatment section includes future care activities for the patient from all [place] [facility]. This section includes future appointments and [...] [place] [facility] [facility] Apr 06, 2024 01:00 PM AMBULATORY - NONE [place] [facility] Apr 06, 2024 01:00 PM AMBULATORY - MEDICINE [facility] Apr 10, 2024 01:30 PM AMBULATORY - MEDICINE [facility] Apr 10, 2024 01:31 PM AMBULATORY - NONE [place] [facility] Apr 11, 2024 10:00 AM AMBULATORY - SURGERY [facility] Apr 11, 2024 10:01 AM AMBUL[place]ORY [place] [facility] Apr 21, 2024 10:30 AM AMBULATORY - NONE [place] [facility] May 03, 2024 02:30 PM AMBULATORY - [place] [facility] May 04, 2024 10:30 AM AMBUL[place]ORY - [place]IC[place] [facility] May 04, 2024 11:00 AM AMBULATORY - [place] [facility] May 04, 2024 12:30 PM AMBULATORY - NONE [place] [facility] May 04, 2024 01:00 PM AMBULATORY - [place] [facility] May 08, 2024 02:30 PM AMBULATORY - MEDICINE [facility] May 08, 2024 02:31 PM AMBULATORY - NONE SONYA [facility] May 16, 2024 10:00 AM AMBULATORY - SURGERY [facility] [place] [facility] May 16, 2024 10:01 AM AMBULATORY - SURGERY SONYA GAYLE [facility] May 19, 2024 08:00 AM AMBULATORY - NONE SONYA LAI [facility] May 26, 2024 10:00 AM AMBULATORY - NONE SONYA LAI [facility] Jun 07, 2024 01:00 PM AMBULATORY - SURGERY [facility] Active, Pending, [...] 12:13 PM Consult Order COMMUNITY CARE-NEUROLOGY Cons Telephone Supervisor's Choice [facility] Apr 06, 2024 04:04 PM Consult Order COMMUNITY CARE-ALLERGY Cons Telephone Supervisor's Choice [facility] Vital Signs: All taken on the encounter date This section contains inpatient and outpatient Vital Signs collected on the date of the Encounter. Date/Time Temperature Pulse Blood Pressure Respiratory Rate SP02 Pain Height Weight Body Mass Index Source Feb 21, 2024 10:09 AM 97.9 71 117/72 96 0 124.9 18 [facility] Social History: Smoking Status [...] Feb 21, 2024 10:15 AM VA-TOBACCO USE CAUSE ANALYST NO [facility] Feb 21, 2024 10:15 AM VA-TOBACCO USE MED NO [facility] Feb 21, 2024 10:15 AM VA-TOBACCO USE WI 30 MIN OF WAKEUP [facility] Feb 21, 2024 10:15 AM VA-TOBACCO USER EVERY DAY [facility] Jul 17, 2021 02:27 PM CURRENT [facility] Jannette [facility] Jul 01, 2021 08:55 PM VA-VAAES TOBACCO U SE CURRENT NRT DECLINE [facility] Jul 01, 2021 02:41 PM CURRENT [facility] Jannette [facility] Dec 08, 2020 08:45 [...] AM RENAL AND BLADDER ULTRASOUND: GALINA EDUARDO [id number] -[id number] M Exm Date: FEB 21, 2024@11:00 Req Phys: BRITTNEY SOTO Loc: [facility] [place] G2RD (Req'g L Img Loc: ULTRASOUND (OOS) Service: Unknown [place] [facility] [place] [address] (Case 55 COMPLETE) ULTRASOUND RENAL (US Detailed) CPT:45996 Reason for Study: US following ureteral stent removal, eval hydro/stones (Case 56 COMPLETE) ULTRASOUND PELVIS (US Detailed) CPT:90985 Clinical History: Please coordinate with Urology follow up in 3 months Report Status: Verified Date Reported: FEB 21, 2024 Date Verified: FEB 21, 2024 Bank Note Designer E-Sig:/VIVIAN/BRITTNEY PEDERSEN Report: Ultrasound -- renal/bladder: COMPARISON: [...] Primary Interpreting Staff: BRITTNEY PEDERSEN, RADIOLOGY ATTENDING (Bank Note Designer) /BRITTNEY FREIRE T [facility] Encounter Notes: All associated encounter notes [...] 02/21/2024 13:51 Receipt Acknowledged By: 02/21/2024 14:44 /vivian/ KYRA VELASQUEZ M.D INTERNAL MEDICINE, [facility] --- Original Document --- 02/21/24 GERIATRIC EVALUATION NOTE: Type of Evaluation: Geriatric Follow-up GERIATRIC CONSULT ASSESSMENT LAST SAW ONE YEAR AGO 01/2023 Mr. 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 01/2021 Traumatic(after fall) parafalcine SDH and SAH [...] Injury due to chemical exposure (SNOMED CT 629869935) Follicular Lymphoma per [facility] [place] record- biopsy proven follicular non-Hodgkin's lymphoma on [...] LOWER CHOLESTEROL 2) DRESS,MEPILEX BORDER FLEX 4X4IN #213403 APPLY ONE ACTIVE DRESSING TOPICALLY EVERY THIRTY-SIX HOURS APPLY DIRECTED 3) DRESSING,MEPILEX BORDR 8.7X9.8IN #068122 APPLY ONE ACTIVE DRESSING TOPICALLY DIRECTED 4) [...] full bath as well as the kitchen. TABLET TECHNICIAN: Reports that he has been using a [...] Serial 7s: 23 LANGUAGE: Repetition: 2/2 Fluency: 01 ABSTRACTION: 2/2 RECALL: 2/5 (with category clues [...] Defers further physical therapy The dynamic between [facility] and his impedes some history taking today Has upcoming follow-up with neurology regarding seizure disorder There has been no falls it is hard to decipher by history of memory has truly declined it sounds like possibly stable over the last year. is full assist with IADLs and some [...] --11/18/2017 advance directive in the chart HANNA EDUARDO PRIMARY NO alternative selected reviewed. would consider [...] to protect and improve your health and [place] has the resources to support you. - [...] behavioral changes to help you quit. - [place] has a number of behavioral counseling options to help you with quitting, including: * Provide information about the facility smoking or tobacco use treatment options or clinics * [place]'s national quitline, 9-057-IJGL-VET, with counseling available Wednesday-Wednesday The patient was [...] Screens: ADL Screen - Amaya Index of [place] in Activities of Daily Living Record INDEX [...] Not worried about housing near future The [facility] reports the following: Within the past 12 [...] JLV. Allergies/ADRs (Tool #5) FACILITY ALLERGY/ADR -------- [facility] IOHEXOL [place] [facility] OMNIPAQUE 350 INJECTION Med Recon NoGlossary (Tool #1) INCLUDED IN THIS LIST: Alphabetical list of active outpatient prescriptions dispensed from this [place] (local) and dispensed from another VA or [facility] facility (remote) as well as inpatient orders (local pending and active), local clinic medications, locally documented non-VA medications, and local prescriptions that have or been discontinued in the past 90 days. Non-VA Meds Last Documented On: May 22, 2016 NOTE The display of VA prescriptions dispensed from another [place] or [facility] facility (remote) is limited to active outpatient prescription entries matched to National Drug File at the originating site and may not include some items such as investigational drugs, compounds, etc. NOT INCLUDED IN THIS LIST: Medications self-entered by the patient into personal health records (i.e. [employer]) are NOT included in this list. Non-VA medications documented outside this [place], remote inpatient orders (regardless of status) and remote clinic medications are NOT included in this list. The patient and provider must always discuss medications the patient is taking, regardless of where the medication was dispensed or obtained. OUTPT ATORVASTATIN CALCIUM 40MG TAB (Status = Active) TAKE TWO TABLET(S) BY MOUTH EVERY EVENING TO LOWER CHOLESTEROL Rx# [id number] Last Released: 12/09/23 Qty/Days Supply: 180/ Rx Expiration Date: 05/10/24 Refills Remainin OUTPT DIPHENHYDRAMINE HCL 50MG CAP (Status = Discontinued) TAKE ONE CAPSULE BY MOUTH ONCE - TAKE ONE HOUR PRIOR TO CT Rx# [id number] Last Released: 11/06/23 Qty/Days Supply: 08/23 Rx Expiration Date: 12/04/23 Refills Remainin Indication: FOR CT CONTRAST PROPHYLAXIS OUTPT LACOSAMIDE 50MG TAB (Status = ) TAKE FOUR TABLETS BY MOUTH TWICE A DAY MAY TAKE AN EXTRA TWO TABLETS IF ANY UTI,FEVER, OR ANY SURGICAL PROCEDURE Rx# [id number] Last Released: 12/30/23 Qty/Days Supply: 240 Rx Expiration Date: 01/15/24 Refills Remainin OUTPT LACOSAMIDE 50MG TAB (Status = Active) TAKE FOUR TABLETS BY MOUTH TWICE A DAY . MAY TAKE 2 EXTRA TABLETS (100MG) IF ANY UTI, FEVER OR ANY SURGICAL PROCEDURE. Rx# [id number] Last Released: 01/27/24 Qty/Days Supply: Rx Expiration Date: 07/26/24 Refills Remainin OUTPT MELATONIN 3MG CAP/TAB (Status = Active) TAKE ONE CAP/TAB BY MOUTH AT BEDTIME NEEDED FOR SLEEP Rx# [id number] Last Released: 12/23/23 Qty/Days Supply: 120/90 Rx Expiration Date: 05/10/24 Refills Remainin OUTPT METHYLPREDNISOLONE 32MG TAB (Status = Discontinued) TAKE ONE TABLET BY MOUTH TWICE A DAY - TAKE 1 TABLET 12 HOURS AND 2 HOURS PRIOR TO THE ADMINSTRATION OF CONTRAST MEDIA (LASSER PROTOCOL) Rx# [id number] Last Released: 11/06/23 Qty/Days Supply: 09/23 Rx Expiration Date: 12/04/23 Refills Remainin 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 Rx# [id number] Last Released: 12/06/23 Qty/Days Supply: 05/03 Rx Expiration Date: 01/01/24 Refills Remainin Indication: TO PREVENT UTI OUTPT POTASSIUM CHLORIDE 10MEQ SA TAB (Status = Active) TAKE ONE TABLET BY MOUTH EVERY MORNING WITH BREAKFAST TO SUPPLEMENT POTASSIUM Rx# [id number] Last Released: 02/15/24 Qty/Days Supply: 90 Rx Expiration Date: 05/10/24 Refills Remainin Indication: TO SUPPLEMENT POTASSIUM OUTPT TAMSULOSIN HCL 0.4MG CAP (Status = Active) TAKE ONE CAPSULE BY MOUTH TWICE A DAY 30 MINUTES AFTER THE SAME MEALTIME EACH DAY FOR PROSTATE/URINARY SYMPTOMS. Rx# [id number] Last Released: 02/21/24 Qty/Days Supply: 60/30 Rx Expiration Date: 05/10/24 Refills Remainin OUTPT ZZZLACTOBACILLUS COMBO TAB (Status = Discontinued) TAKE ONE TABLET BY MOUTH ONCE DAILY FOR GI Rx# [id number] Last Released: 12/23/23 Qty/Days Supply: Rx Expiration Date: 05/26/24 Refills Remainin Indication: FOR GI SUPPLIES OUTPT DRESS,MEPILEX BORDER FLEX 4X4IN #544930 (Status = Discontinued) APPLY ONE DRESSING TOPICALLY TWO TIMES PER WEEK APPLY DIRECTED Rx# [id number] Last Released: 11/05/23 Qty/Days Supply: Rx Expiration Date: 11/02/24 Refills Remainin OUTPT DRESS,MEPILEX BORDER FLEX 4X4IN #610346 (Status = Discontinued) APPLY ONE DRESSING TOPICALLY EVERY THIRTY-SIX HOURS APPLY DIRECTED Rx# [id number] Last Released: 01/04/24 Qty/Days Supply: Rx Expiration Date: 12/30/24 Refills Remainin Indication: SACRAL PRESSURE SORE OUTPT DRESS,MEPILEX BORDER FLEX 4X4IN #427361 (Status = Active/Suspended) APPLY ONE DRESSING TOPICALLY EVERY THIRTY-SIX HOURS APPLY DIRECTED Rx# [id number] Last Released: Qt Supply: Rx Expiration Date: 02/21/25 Refills Remainin Indication: SACRAL PRESSURE SORE OUTPT DRESSING,HONEY TOP GEL (Status = ) APPLY SMALL AMOUNT TOPICALLY TWO TIMES PER WEEK Rx# [id number] Last Released: 08/30/23 Qty/Days Supply: Rx Expiration Date: 11/24/23 Refills Remainin OUTPT DRESSING,MEPILEX BORDR 8.7X9.8IN #939011 (Status = Discontinued) APPLY ONE DRESSING TOPICALLY DIRECTED Rx# [id number] Last Released: 08/31/23 Qty/Days Supply: Rx Expiration [...] an Advance Directive on file at this [facility]. No updates are needed at this time. The patient received education about Advance Directives and written notification of his/her rights. Sexual Orientation: The patient thinks of their sexual orientation as: Straight or Heterosexual /vivian/ CRESENCIO MEDINA DO DO Signed: 02/21/2024 14:16 CRESENCIO MEDINA [facility] Feb 21, 2024 09:03 AM GERIATRIC MEDICINE NOTE: LOCAL TITLE: GERIATRIC EVALUATION NOTE STANDARD TITLE: GERIATRIC MEDICINE NOTE DATE OF NOTE: FEB 21, 2024@09:03 ENTRY DATE: FEB 21, 2024@09:03:32 AUTHOR: CRESENCIO MEDINA EXP COSIGNER: URGENCY: STATUS: COMPLETED GERIATRIC EVALUATION NOTE Has ADDENDA Type of Evaluation: Geriatric Follow-up GERIATRIC CONSULT ASSESSMENT LAST SAW ONE YEAR AGO 01/2023 Mr. Galina Eduardo is a 77 yo who is here [...] of these hallucinations considering the dynamic between [facility] and his he is off remeron, led to weird dreams. does not think he has CT 04/2024 doesnt have contrast allergy. he feels he does. was sent the medications for CT allergy but does not think he needs it. 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 01/2021 Traumatic(after fall) parafalcine SDH and SAH [...] Injury due to chemical exposure (SNOMED CT [id number]) Follicular Lymphoma per [facility] [place] [place] record- biopsy proven follicular non-Hodgkin's lymphoma on [...] LOWER CHOLESTEROL 2) DRESS,MEPILEX BORDER FLEX 4X4IN #110866 APPLY ONE ACTIVE DRESSING TOPICALLY EVERY THIRTY-SIX HOURS APPLY DIRECTED 3) DRESSING,MEPILEX BORDR 8.7X9.8IN #205938 APPLY ONE ACTIVE DRESSING TOPICALLY DIRECTED 4) [...] full bath as well as the kitchen. TABLET TECHNICIAN: Reports that he has been using a [...] UE and LE proximal and distal strength / SKIN: pink warm dry, no rashes. No pressure wounds noted. LYMPH: no lymphadenopathy PSYCH: Appropriate affect and demeanor, normal speech pattern MOCA: 02/21/2024 VISUOSPATIAL/EXECUTIVE: Trails: 0 unable to decide where to start Cube: 08/23 Clock: Contour: 08/23 Numbers: Hands: 08/23 NAMIN/3 ATTENTION: Backward Digits: 0 Tapping A: Serial 7s: 09/25 LANGUAGE: Repetition: 2 Fluency: 0 ABSTRACTION: 09/24 RECALL: 09/27 (with category clues /5, with multiple choice /) ORIENTATION: 01/26 TOTAL: MOCA:01/2023 TOTAL: MOCA: 06/2021 [...] Defers further physical therapy The dynamic between and his impedes some history taking today Has upcoming follow-up with neurology regarding seizure disorder There has been no falls it is hard to decipher by history of memory has truly declined it sounds like possibly stable over the last year. [facility] is full assist with IADLs and some [...] --11/18/2017 advance directive in the chart HANNA EDUARDO PRIMARY NO alternative selected reviewed. would consider [...] acute changes. A lot of argument/discussion with [facility] and his today during visit about his [...] to protect and improve your health and [place] has the resources to support you. - [...] behavioral changes to help you quit. - [place] has a number of behavioral counseling options to help you with quitting, including: * Provide information about the facility smoking or tobacco use treatment options or clinics * [place]'s national quitline, 6-237-KYWZ-VET, with counseling available Wednesday-Wednesday The patient was [...] Screens: ADL Screen - Amaya Index of [place] in Activities of Daily Living Record INDEX [...] JLV. Allergies/ADRs (Tool #5) FACILITY ALLERGY/ADR -------- [facility] IOHEXOL [place] [facility] OMNIPAQUE 350 INJECTION Med Recon NoGlossary (Tool #1) INCLUDED IN THIS LIST: Alphabetical list of active outpatient prescriptions dispensed from this [place] (local) and dispensed from another [place] or [facility] facility (remote) as well as inpatient orders (local pending and active), local clinic medications, locally documented non-VA medications, and local prescriptions that have or been discontinued in the past 90 days. Non-VA Meds Last Documented On: May 22, 2016 NOTE The display of VA prescriptions dispensed from another [place] or [facility] facility (remote) is limited to active outpatient prescription entries matched to National Drug File at the originating site and may not include some items such as investigational drugs, compounds, etc. NOT INCLUDED IN THIS LIST: Medications self-entered by the patient into personal health records (i.e. [employer]) are NOT included in this list. Non-VA medications documented outside this [place], remote inpatient orders (regardless of status) and remote clinic medications are NOT included in this list. The patient and provider must always discuss medications the patient is taking, regardless of where the medication was dispensed or obtained. OUTPT ATORVASTATIN CALCIUM 40MG TAB (Status = Active) TAKE TWO TABLET(S) BY MOUTH EVERY EVENING TO LOWER CHOLESTEROL Rx# [id number] Last Released: 12/09/23 Qty/Days Supply: 180/ Rx Expiration Date: 05/10/24 Refills Remainin OUTPT DIPHENHYDRAMINE HCL 50MG CAP (Status = Discontinued) TAKE ONE CAPSULE BY MOUTH ONCE - TAKE ONE HOUR PRIOR TO CT Rx# [id number] Last Released: 11/06/23 Qty/Days Supply: 08/23 Rx Expiration Date: 12/04/23 Refills Remainin Indication: FOR CT CONTRAST PROPHYLAXIS OUTPT LACOSAMIDE 50MG TAB (Status = ) TAKE FOUR TABLETS BY MOUTH TWICE A DAY MAY TAKE AN EXTRA TWO TABLETS IF ANY UTI,FEVER, OR ANY SURGICAL PROCEDURE Rx# [id number] Last Released: 12/30/23 Qty/Days Supply: Rx Expiration Date: 01/15/24 Refills Remainin OUTPT LACOSAMIDE 50MG TAB (Status = Active) TAKE FOUR TABLETS BY MOUTH TWICE A DAY . MAY TAKE 2 EXTRA TABLETS (100MG) IF ANY UTI, FEVER OR ANY SURGICAL PROCEDURE. Rx# [id number] Last Released: 01/27/24 Qty/Days Supply: Rx Expiration Date: 07/26/24 Refills Remainin OUTPT MELATONIN 3MG CAP/TAB (Status = Active) TAKE ONE CAP/TAB BY MOUTH AT BEDTIME NEEDED FOR SLEEP Rx# [id number] Last Released: 12/23/23 Qty/Days Supply: 120/90 Rx Expiration Date: 05/10/24 Refills Remainin OUTPT METHYLPREDNISOLONE 32MG TAB (Status = Discontinued) TAKE ONE TABLET BY MOUTH TWICE A DAY - TAKE 1 TABLET 12 HOURS AND 2 HOURS PRIOR TO THE ADMINSTRATION OF CONTRAST MEDIA (LASSER PROTOCOL) Rx# [id number] Last Released: 11/06/23 Qty/Days Supply: 09/23 Rx Expiration Date: 12/04/23 Refills Remainin 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 Rx# [id number] Last Released: 12/06/23 Qty/Days Supply: 05/03 Rx Expiration Date: 01/01/24 Refills Remainin Indication: TO PREVENT UTI OUTPT POTASSIUM CHLORIDE 10MEQ SA TAB (Status = Active) TAKE ONE TABLET BY MOUTH EVERY MORNING WITH BREAKFAST TO SUPPLEMENT POTASSIUM Rx# [id number] Last Released: 02/15/24 Qty/Days Supply: 90/ Rx Expiration Date: 05/10/24 Refills Remainin Indication: TO SUPPLEMENT POTASSIUM OUTPT TAMSULOSIN HCL 0.4MG CAP (Status = Active) TAKE ONE CAPSULE BY MOUTH TWICE A DAY 30 MINUTES AFTER THE SAME MEALTIME EACH DAY FOR PROSTATE/URINARY SYMPTOMS. Rx# [id number] Last Released: 02/21/24 Qty/Days Supply: Rx Expiration Date: 05/10/24 Refills Remainin OUTPT ZZZLACTOBACILLUS COMBO TAB (Status = Discontinued) TAKE ONE TABLET BY MOUTH ONCE DAILY FOR GI Rx# [id number] Last Released: 12/23/23 Qty/Days Supply: Rx Expiration Date: 05/26/24 Refills Remainin Indication: FOR GI SUPPLIES OUTPT DRESS,MEPILEX BORDER FLEX 4X4IN #[id number] (Status = Discontinued) APPLY ONE DRESSING TOPICALLY TWO TIMES PER WEEK APPLY DIRECTED Rx# [id number] Last Released: 11/05/23 Qty/Days Supply: Rx Expiration Date: 11/02/24 Refills Remainin OUTPT DRESS,MEPILEX BORDER FLEX 4X4IN #[id number] (Status = Discontinued) APPLY ONE DRESSING TOPICALLY EVERY THIRTY-SIX HOURS APPLY DIRECTED Rx# [id number] Last Released: 01/04/24 Qty/Days Supply: Rx Expiration Date: 12/30/24 Refills Remainin Indication: SACRAL PRESSURE SORE OUTPT DRESS,MEPILEX BORDER FLEX 4X4IN #805348 (Status = Active/Suspended) APPLY ONE DRESSING TOPICALLY EVERY THIRTY-SIX HOURS APPLY DIRECTED Rx# [id number] Last Released: Qt Supply: Rx Expiration Date: 02/21/25 Refills Remainin Indication: SACRAL PRESSURE SORE OUTPT DRESSING,HONEY TOP GEL (Status = ) APPLY SMALL AMOUNT TOPICALLY TWO TIMES PER WEEK Rx# [id number] Last Released: 08/30/23 Qty/Days Supply: 4590 Rx Expiration Date: 11/24/23 Refills Remainin OUTPT DRESSING,MEPILEX BORDR 8.7X9.8IN #356475 (Status = Discontinued) APPLY ONE DRESSING TOPICALLY DIRECTED Rx# [id number] Last Released: 08/31/23 Qty/Days Supply: 30 Rx Expiration Date: 03/04/24 Refills Remainin Comments: [...] an Advance Directive on file at this [facility]. No updates are needed at this time. The patient received education about Advance Directives and written notification of his/her rights. Sexual Orientation: The patient thinks of their sexual orientation as: Straight or Heterosexual /vivian/ CRESENCIO MEDINA DO DO Signed: 02/21/2024 14:16 CRESENCIO MEDINA [facility]
--- OUTSIDE RECORDS SUMMARY | 2024-07-07 22:21 | XMS_ITS ---
Author Name [place] Address [address] [place] [address] Care Team Providers Care Stave Log Ripsaw Operator Name Role Phone KYRA VELASQUEZ Primary [...] Ervin's Name Patient's Relationship to Policy Ervin [facility] (WNR) MEDICARE [facility](W NR) * Aug 23, 2023 [id number] ANNALISA LOYD ITE PATIENT [facility] MCR (WNR) MEDICARE ADVANTAGE [facility] (WNR) Aug 23, 2020 [id number] [phone] ANNALISA LOYD ITE PATIENT [facility] (WNR) MEDICARE ADVANTAGE [facility](W NR) Aug 23, 2012 [id number] ANNALISA LOYD ITJannette PATIENT Selected Encounter This section includes the information on record at [place] for the Encounter. Date/Time Encounter Type Encounter Description Reason Pro vider Source December 29, 2023 09:16 AM Outpatient Encounter ADMIN PAT ACTIVTIES (MASNONCT) IHE Encounter Template Text not used by [place] Plan of Treatment: Future Appointments (+ 6 [...] [place] JCT [facility] Feb 21, 2024 11:00 AM AMBULATORY - NONE WHITE RI [place] JCT [facility] Mar 18, 2024 12:01 AM AMBULATORY [...] 10:01 AM AMBULATORY - SURGERY WHITE NALINI [facility] May 19, 2024 08:00 AM AMBULATORY - NONE [facility] Active, [...] of theEncounter. The data comes from all [place] treatment facilities. Test Date/Time Test Type Test Details Facility Name January 18, 2024 12:13 PM Consult Order COMMUNITY CARE-NEUROLOGY Cons Enroller's Choice [facility] Social History: Smoking Status [...] 02:27 PM CURRENT SMOKER REINIER GAYLE [facility] Tobacco Use History This section includes [...] 02:41 PM CURRENT SMOKER REINIER GAYLE [facility] Dec 08, 2020 08:45 PM VA-TOBACCO [...] 11:15 AM UROGRAM RETROGRADE : GALINA LOYD [id number] -1945 M Exm Date: DEC 16, 2023@11:15 Req Phys: CORBY OSORIO Pat Loc: [facility] GENERAL G2RD (Req'g Img Loc: XRAY (OOS) Service: [place] [address] (Case [id number] COMPLETE) UROGRAM RETROGRADE (RAD Detailed) CPT:96841 Contrast Media : Non-ionic Iodinated Proc Modifiers : OPERATING ROOM EXAM Reason for Study: bilat ureteroscopy laser litho, stent placement Clinical History: calculus of kidney Report Status: Verified Date Reported: DEC 16, 2023 Date Verified: DEC 16, 2023 Agricultural Extension Officer E-Sig:/ES/BENJAMÍN PIMENTEL Report: UROGRAM RETROGRADE 12/16/2023 11:15 AM Impression: Fluoroscopy performed during urology service procedure. FINDINGS: Procedure performed with the C-arm fluoroscopy . Fluoroscopy time 55 seconds, dose 9 mGy Fluoroscopic images consistent with history of bilateral ureteroscopy and stent placement. Labels from bilateral Sigasi Contour double-J ureteral stents placed on the scanned worksheet Please see procedure note for further details. HISTORY: bilat ureteroscopy laser litho, stent placement, Primary Diagnostic Code: NO IMMEDIATE ATTENTION REQUIRED Primary Interpreting Staff: BENJAMÍN PIMENTEL, Staff Physician (Agricultural Extension Officer) /BENJAMÍN HYLTON [facility] Pathology Reports: +/- 30 days of [...] the Encounter. The data comes from all [facility] facilities. Date/Time Pathology Report Provider Source Nov 29, 2023 11:27 AM LR MICROBIOLOGY RE PORT: Reporting Lab: SONYA GAYLE [facility] [CLIA# [id number]] [address] [place] [address] Accession [UID]: [id number] [[id number]] Received: Nov 30, 2023@19:53 Collection sample: URINE CLEAN CATCH Collection date: Nov 29, 2023 11:27 Site/Specimen: URINE Provider: CORBY OSORIO Test(s) ordered: CULTURE,URINE CLEAN CATCH..... completed: Dec 02, 2023 13:00 * BACTERIOLOGY FINAL REPORT => Dec 02, 2023 13:01 TECH CODE: [id number] Bacteriology Remark(s): 12/02/23 50,000-99,000 CFU/mL AT LEAST THREE BACTERIAL TYPES PRESENT INDICATING POSSIBLE CONTAMINATION, PLEASE REPEAT COLLECTION. =--=--=--=--=--=--=--=--=--=--= --=--=--=--=--=--=--=--=--=--=- -=--=--=--=--=-- Performing Laboratory: Bacteriology Report Performed By: SONYA GAYLE [facility] [CLIA# [id number]] [address] [place] [address] [facility] Encounter Notes: All associated [...] JONES AMSA Signed: 12/29/2023 09:16 SUZANNE JONES [facility]
--- OUTSIDE RECORDS SUMMARY | 2024-07-07 22:21 | XMS_ITS | Encounter Summary ---
Author Name Department [place] Address [address] [place] [address] Care Team Providers Care Personnel Quality Assurance Auditor Name Role Phone KYRA VELASQUEZ Primary Care [...] Patient's Relationship to Policy Ervin [facility] (WNR) MEDICARE ADVANTAGE MCR(W NR) * Aug 23, 2023 [id number] [phone] ANNALISA LOYD ITE PATIENT [facility] (WNR) MEDICARE ADVANTAGE [facility] (WNR) Aug 23, 2020 [id number] [phone] ANNALISA LOYD ITE PATIENT [facility] (WNR) MEDICARE [facility](W NR) Aug 23, 2012 [id number] ANNALISA LOYD ITE PATIENT Selected Encounter [...] 06, 2024 01:00 PM AMBULATORY - MEDICINE [facility] Apr 10, 2024 01:30 PM AMBULATORY [...] JOELLE JCT [facility] May 26, 2024 10:00 AM AMBULATORY - NONE WHITE RI JOELLE JCT [facility] Jun 07, 2024 01:00 PM AMBULATORY - SURGERY [facility] Active, [...] 12:13 PM Consult Order COMMUNITY CARE-NEUROLOGY Cons Metalsmith Apprentice's Choice [facility] Apr 06, 2024 04:04 PM Consult Order COMMUNITY CARE-ALLERGY Cons Metalsmith Apprentice's [facility] Social History: Smoking Status (Most [...] Feb 21, 2024 10:15 AM VA-TOBACCO USE BALLET TEACHER NO [facility] Feb 21, 2024 [...] AM RENAL AND BLADDER ULTRASOUND: GALINA LOYD [id number] -1945 M Ex Date: FEB 21, 2024@11:00 Req Phys: BRITTNEY SOTO Loc: [facility] OR NC G2RD (Req'g L Img Loc: ULTRASOUND (OOS) Service: [place] [address] (Case 55 COMPLETE) ULTRASOUND RENAL (US Detailed) CPT:00361 Reason for Study: US following ureteral stent removal, eval hydro/stones (Case 56 COMPLETE) ULTRASOUND PELVIS (US Detailed) CPT:44073 Clinical History: Please coordinate with Urology follow up in 3 months Report Status: Verified Date Reported: FEB 21, 2024 Date Verified: FEB 21, 2024 Auto Suspension And Steering Mechanic E-Sig:/ES/BRITTNEY PEDERSEN Report: Ultrasound -- renal/bladder: COMPARISON: [...] BRITTNEY PEDERSEN, RADIOLOGY ATTENDING (Miah) /BRITTNEY FREIRE [facility] Encounter Notes: All associated encounter [...] Contact: Notified from ECR worklist Notification ID: [id number] [facility] Referral #: [facility] Name: Hospital: [facility] Address: City: [facility] State: [place] Zip Code: [address] Phone : Community Facility Point of Contact: Name: Phone: Chief complaint: fell, fx hip Primary Diagnosis: Disposition Unknown at time of intake note entry Alerting PACT that [place] has been admitted with a fractured hip. /vivian/ PILAR TOBAR, RN EMERGENCY FIELD COIL WINDER Signed: 02/28/2024 12:31 Receipt Acknowledged By: 02/28/2024 13:36 /es/ JENIFER SHANE LPN 03/07/2024 11:14 /vivian/ OJ GIL RN 02/28/2024 ADDENDUM STATUS: COMPLETED REcord of visit requested. /vivian/ OJ GIL RN Signed: 02/28/2024 12:49 03/07/2024 ADDENDUM STATUS: COMPLETED Notification ID # [id number] EOC approved under 1703 by the National ER Notification Team [employer] Referral # [id number] /vivian/ ADITI SANCHEZ Signed: 03/07/2024 09:52 03/07/2024 ADDENDUM STATUS: COMPLETED contact with of vet-vet sustained hip fx surgery aborted on 02/25 d/t profound hypotension- transferred to ICU. Did have surgery on 02/27 Vet is currently in rehab in [place]. /huber GIL RN Signed: 03/07/2024 11:41 PILAR [facility]
--- OUTSIDE RECORDS SUMMARY | 2024-07-07 22:21 | XMS_ITS ---
[place] ANESTHESIA PRE/POST-OP CONSULT SONYA WILLIAMSONTobi [facility] Encounter Summary Created on: July 07, 2024 GALINA LOYDEN : 1945 Sex: Male Author Name Department [place] Address [address] [place] [address] Care Team Providers Care Welder First Class Name Role Phone RONKYRA Primary Care Provider [...] Patient's Relationship to Policy Ervin [facility] (WNR) MEDICARE ADVANTAGE MCR(W NR) * Aug 23, 2023 [id number] ANNALISA LOYD ITE PATIENT [facility] (WNR) MEDICARE ADVANTAGE [facility] (WNR) Aug 23, 2020 [id number] [phone] ANNALISA LOYD ITE PATIENT [facility] (WNR) MEDICARE ADVANTAGE [facility](W NR) Aug 23, 2012 [id number] [phone] ANNALISA LOYD PATIENT Selected Encounter This [...] activities for the patient from all [place] [facility] [place]. This section includes future appointments and future [...] [place] [facility] May 08, 2024 02:30 PM AMBULATORY - MEDICINE [facility] May 08, 2024 02:31 PM AMBULATORY - NONE [place]ITE [place] J[place] [facility] May 16, 2024 10:00 AM AMBULATORY - SURGERY [facility] May 16, 2024 10:01 AM AMBULATORY - SURGERY [facility] Active, Pending, and Scheduled [...] 18, 2024 12:13 PM Consult Order COMMUNITY [facility]-NEUROLOGY Cons Mechanic Helper's Choice [facility] Lab Results: +/- 30 days [...] Reporting Lab: [facility] [address] [facility] [address] Performing Lab: [facility] [address] [facility] [address] URINE COLOR Light-Tubac NOT DEFINED SPECIFIC GRAVITY 1.013 1.003-1.030 UROBILINOGEN [...] 136/84 20 96 0 69 122.3 18 [facility] Social History: Smoking Status [...] CURRENT SMOKER REINIER Bhatia [facility] Tobacco Use History This [...] 11:15 AM UROGRAM RETROGRADE : GALINA LOYD [id number] -1945 M Exm Date: DEC 16, 2023@11:15 Req Phys: CORBY OSORIO Pat Loc: [facility] GENERAL G2RD (Req'g Img Loc: XRAY (OOS) Service: [place] [address] (Case 447 COMPLETE) UROGRAM RETROGRADE (RAD Detailed) CPT:16330 Contrast Media : Non-ionic Iodinated Proc Modifiers : OPERATING ROOM EXAM Reason for Study: bilat ureteroscopy laser litho, stent placement Clinical History: calculus of kidney Report Status: Verified Date Reported: DEC 16, 2023 Date Verified: DEC 16, 2023 Sustain Engineer E-Sig:/PARIS/BENJAMÍN PIMENTEL Report: UROGRAM RETROGRADE 12/16/2023 11:15 AM Impression: Fluoroscopy performed during urology service procedure. FINDINGS: Procedure performed with the C-arm fluoroscopy . Fluoroscopy time 55 seconds, dose 9 mGy Fluoroscopic images consistent with history of bilateral ureteroscopy and stent placement. Labels from bilateral [employer] Contour double-J ureteral stents placed on the scanned worksheet Please see procedure note for further details. HISTORY: bilat ureteroscopy laser litho, stent placement, Primary Diagnostic Code: NO IMMEDIATE ATTENTION REQUIRED Primary Interpreting Staff: BENJAMÍN PIMENTEL, Staff Physician (Sustain Engineer) /BENJAMÍN HYLTON [facility] Pathology [...] MICROBIOLOGY RE PORT: Reporting Lab: SONYA PINON [facility] [CLIA# [id number]] [address] [place] [address] Accession [UID]: [id number] [[id number]] Received: Nov 30, 2023@19:53 Collection sample: URINE CLEAN CATCH Collection date: Nov 29, 2023 11:27 Site/Specimen: URINE Provider: CORBY OSORIO Test(s) ordered: CULTURE,URINE CLEAN CATCH..... completed: Dec 02, 2023 13:00 * BACTERIOLOGY FINAL REPORT => Dec 02, 2023 13:01 TECH CODE: [id number] Bacteriology Remark(s): 12/02/23 50,000-99,000 CFU/mL AT LEAST THREE BACTERIAL TYPES PRESENT INDICATING POSSIBLE CONTAMINATION, PLEASE REPEAT COLLECTION. =--=--=--=--=--=--=--=--=--=--= --=--=--=--=--=--=--=--=--=--=- -=--=--=--=--=-- Performing Laboratory: Bacteriology Report Performed By: SONYA PINON [facility] [CLIA# [id number]] [address] [place] [address] [facility]
--- OUTSIDE RECORDS SUMMARY | 2024-07-07 22:21 | XMS_ITS | Encounter Summary ---
Author Name Department [place] Address [address] [place] [address] Care Team Providers Care Product Support Analyst Name Role Phone KYRA VELASQUEZ Primary Care [...] [facility] (WNR) MEDICARE ADVANTAGE MCR(W NR) * Aug 23, 2023 [id number] ANNALISA LOYD ITE PATIENT [facility] (WNR) MEDICARE ADVANTAGE [facility] (WNR) Aug 23, 2020 [id number] [phone] ANNALISA LOYD ITE PATIENT [facility] (WNR) MEDICARE [facility](W NR) Aug 23, 2012 [id number] ANNALISA LOYD ITE PATIENT Selected Encounter [...] activities for the patient from all [place] [facility]. This section includes future appointments and future [...] JO[place]LE JCT [facility] May 26, 2024 10:00 AM AMBULATORY - NONE WHITE [place] JOELLE JCT [facility] Jun 07, 2024 01:00 PM AMBULATORY [...] 12:13 PM Consult Order COMMUNITY CARE-NEUROLOGY Cons Transportation Assistant's Choice [facility] Apr 06, 2024 04:04 PM Consult Order COMMUNITY CARE-ALLERGY Cons Transportation Assistants [facility] Social History: Smoking Status [...] Feb 21, 2024 10:15 AM VA-TOBACCO USE BED LASTER NO [facility] Feb 21, 2024 10:15 [...] 01, 2021 02:41 PM CURRENT SMOKER WHIT [facility] Dec 08, 2020 08:45 PM [...] AM RENAL AND BLADDER ULTRASOUND: GALINA LOYD [id number] -1945 M Ex Date: FEB 21, 2024@11:00 Req Phys: BRITTNEY SOTO Loc: [facility] OR [place] G2RD (Req'g L Img Loc: ULTRASOUND (OOS) Service: [place] [address] (Case 55 COMPLETE) ULTRASOUND RENAL (US Detailed) CPT:94166 Reason for Study: US following ureteral stent removal, eval hydro/stones (Case 56 COMPLETE) ULTRASOUND PELVIS (US Detailed) CPT:08398 Clinical History: Please coordinate with Urology follow up in 3 months Report Status: Verified Date Reported: FEB 21, 2024 Date Verified: FEB 21, 2024 Classified Advertising Supervisor E-Sig:/PARIS/BRITTNEY PEDERSEN Report: Ultrasound -- renal/bladder: COMPARISON: [...] BRITTNEY PEDERSEN, RADIOLOGY ATTENDING (Miah) /BRITTNEY FREIRE [facility] Encounter Notes: All associated encounter notes This [...] is in place and MSAs alerted via teams /paris/ JENIFER SHANE LPN Signed: 02/29/2024 08:15 JENIFER SHANE [facility]
--- NOTE | 2024-07-07 22:22 | W.ED.GENAD ---
Discharge Plan Disposition Patient Disposition: Admit to [facility] Condition: Stable Discharge Details Clinical Impression: Sepsis, Urinary tract infection Admit Date/Time: 07/07/24 23:48 Admit Provider: Robson Ochoa Attending Provider: Robson Ochoa Primary Care Provider: Elyse Gutierrez ED Provider: Charleen Thorne General Date/Time Provider Initiated Documentation: 07/07/24 22:10. Information obtained by: patient, family, EMS and old records reviewed. HPI Narrative: Medically history from [facility] record review including palliative care visit note 06/19/24. 78yo M with hx CVA, subdural hematoma and subarachnoid hemorrhage (residual memory problems from this), seizures, prostate cancer (s/p radiation therapy, currently on surveillance only), follicular lymphoma (treated 2015, annual surveillance), AAA (December [address] CT 4.6 cm), thoracic aortic aneurysm, PTSD, frequent UTI with intermittent urinary retention currently with indwelling giraldo, presenting for family concerned for UTI. Has been more confused than usual over the past 2-3 days, generalized weakness, difficulty getting up to the bathroom. He does report pain in his coccyx, otherwise denies pain. No fevers, chills, rash, nausea, vomiting, abdominal pain, flank pain, chest pain, shortness of breath, or other concerns. Related Data Home Medications ?Medication ?Instructions ?Recorded ?Confirmed atorvastatin 80 mg tablet 80 mg PO QPM 01/05/21 07/07/24 cholecalciferol (vitamin D3) 25 25 mcg PO .qod 01/05/21 07/07/24 mcg (1,000 unit) tablet (Vitamin D3) lacosamide 100 mg tablet 200 mg PO BID 01/05/21 07/07/24 tamsulosin 0.4 mg capsule 0.4 mg PO BID 01/05/21 07/07/24 lactobacillus combo #5 150 mg (2 1 mg PO DAILY 12/12/21 07/07/24 billion cell) tablet,delayed release melatonin 3 mg tablet 3 mg PO HS 12/12/21 07/07/24 acetaminophen 500 mg tablet 1,000 mg (2 x 500 mg) PO Q8H PRN 03/03/24 07/07/24 PRN #0 tabs docusate sodium 100 mg capsule 100 mg PO BID #0 caps 03/03/24 07/07/24 (Colace) ferrous sulfate 325 mg (65 mg 325 mg PO DAILY #30 tabs 03/03/24 07/07/24 iron) tablet (Feosol) magnesium gluconate 27 mg 500 mg (18.5185 x 27 mg magnesium 03/03/24 07/07/24 magnesium (500 mg) tablet (500 mg)) PO DAILY #0 tabs polyethylene glycol 3350 17 gram 17 g PO BID #0 ea 03/03/24 07/07/24 oral powder packet potassium chloride 10 mEq 10 meq PO DAILY #0 tabs 03/03/24 07/07/24 tablet,extended release(part/cryst) psyllium husk (aspartame) 3.4 1 pwd PO BID #0 grams 03/03/24 07/07/24 gram/5.8 gram oral powder (Metamucil Sugar-Free (aspartame)) sennosides 8.6 mg tablet (Senokot) 8.6 mg PO BID #60 tabs 03/03/24 07/07/24 tramadol 50 mg tablet 50 mg PO Q4H PRN PRN #30 tabs 03/03/24 07/07/24 cetirizine 10 mg tablet (Allergy 10 mg PO DAILY PRN 05/30/24 07/07/24 Relief (cetirizine)) foam bandage 4 X 4 (Mepilex) 05/30/24 06/20/24 foam bandage 6 X 6 (Mepilex 05/30/24 06/20/24 Border) foam bandage 8 X 8 05/30/24 06/20/24 honey 100 % topical paste 1 applic topical DIRECTED 05/30/24 07/07/24 methylprednisolone 32 mg tablet 32 mg PO BID 05/30/24 07/07/24 midazolam 5 mg/spray (0.1 mL) 5 mg intranasal ONCE 05/30/24 07/07/24 nasal spray Previous Rx's ?Medication ?Instructions ?Recorded acetaminophen 500 mg tablet 1,000 mg (2 x 500 mg) PO Q8H PRN 03/03/24 PRN #0 tabs docusate sodium 100 mg capsule 100 mg PO BID #0 caps 03/03/24 (Colace) ferrous sulfate 325 mg (65 mg 325 mg PO DAILY #30 tabs 03/03/24 iron) tablet (Feosol) magnesium gluconate 27 mg 500 mg (18.5185 x 27 mg magnesium 03/03/24 magnesium (500 mg) tablet (500 mg)) PO DAILY #0 tabs polyethylene glycol 3350 17 gram 17 g PO BID #0 ea 03/03/24 oral powder packet potassium chloride 10 mEq 10 meq PO DAILY #0 tabs 03/03/24 tablet,extended release(part/cryst) psyllium husk (aspartame) 3.4 1 pwd PO BID #0 grams 03/03/24 gram/5.8 gram oral powder (Metamucil Sugar-Free (aspartame)) sennosides 8.6 mg tablet (Senokot) 8.6 mg PO BID #60 tabs 03/03/24 tramadol 50 mg tablet 50 mg PO Q4H PRN PRN #30 tabs 03/03/24 Allergies Allergy/AdvReac Type Severity Reaction Status Date / Time cefazolin Allergy Severe Anaphylaxis Verified 07/07/24 22:13 iohexol (From Omnipaque) Allergy Unknown Unknown Verified 07/07/24 22:13 Iodinated Contrast Media Allergy Skin Rash Verified 07/07/24 22:13 Rocuronium Allergy Severe Anaphylaxis Uncoded 07/07/24 22:13 General Stated Complaint: Urinary ALONZO: 3 Review of Systems Narrative: see HPI Exam Narrative Exam Narrative: General: Alert, non-toxic, thin, in no acute distress. Head: Normocephalic, atraumatic Neck: Trachea midline, ?Neck supple. ENT: ?MMM.? No oropharygeal lesions or exudate. Cardiac: ?RRR, no murmurs appreciated Resp: No respiratory distress. CTAB. Abd: ?Soft, non-distended, nontender : ?No suprapubic tenderness. No CVA tenderness. Giraldo in place draining cloudy urine Extremities: ?No deformities.? No peripheral edema. Skin: Pressure ulcer to coccyx, appropriate dressing in place, no surrounding erythema/induration/tenderness. Small area of skin breakdown left buttock, appropriate dressing in place, no surrounding erythema/induration/tenderness. Neurologic: GCS 14. ? Moves all extremities freely against gravity Course Vital Signs Vital signs: Vital Signs Temperature 36.3 C L 07/07/24 22:11 Pulse 91 H 07/07/24 22:11 Respiratory Rate 16 07/07/24 22:11 Blood Pressure 110/68 07/07/24 22:11 Pulse Oximetry 92 07/07/24 22:11 Temperature 36.3 C L 07/07/24 22:11 Temperature Source Temporal Artery Scan 07/07/24 22:11 Pulse 91 H 07/07/24 22:11 Respiratory Rate 16 07/07/24 22:11 Respiratory Effort Normal 07/07/24 22:14 Blood Pressure 110/68 07/07/24 22:11 Blood Pressure Position Supine 07/07/24 22:11 Pulse Oximetry 92 07/07/24 22:11 Oxygen Delivery Method Room Air 07/07/24 22:11 Oxygen Flow Rate 0 07/07/24 22:11 Pain Level 3 07/07/24 22:11 Medical Decision Making Medically history from [facility] record review including palliative care visit note 06/19/24. 78yo M with hx CVA, subdural hematoma and subarachnoid hemorrhage (residual memory problems from this), seizures, prostate cancer (s/p radiation therapy, currently on surveillance only), follicular lymphoma (treated 2015, annual surveillance), AAA (December [address] CT 4.6 cm), thoracic aortic aneurysm, PTSD, frequent UTI with intermittent urinary retention currently with indwelling giraldo, presenting for family concerned for UTI as he has had cloudy urine and been more confused than baseline. Slightly tachycardiac on arrival at 91, vital signs otherwise reassuring. Exam significant for very cloudy urine draining from giraldo and pressure ulcer to coccyx that does not appear overtly infected. -Labs reviewed as below, CBC with leukocytosis to 13.8, CMP with mild hypokalemia at 3.3 (oral replacement ordered) and Cr slightly elevated compared to 05/24/24 (1.5 up from 1.2), lactate reassuring at 1.5. -UA consistent with infection; urine from 05/24/24 grew MRSA, sensitive to linezolid. -CXR independently reviewed, no focal pneumonia on my view, agree with radiology read below. Non-toxic appearing but does meet sepsis criteria for initial HR and serum WBC. Given 20cc/kg IVFB and cipro & linezolid for broad spectrum urinary pathogen coverage including MRSA; abx selection complicated by documented potential anaphylaxis to cephalosporin. Giraldo replaced. Discussed wtih [facility] hospitalist Dr. Ochoa; pt accepted for admission. Awaiting admission orders and transfer to the floor. Medical Records Medical records reviewed: Yes I reviewed the patient's medical records. Imaging Data Radiologic Study: Imaging: X-Ray Radiologist's impression: IMPRESSION: 1. Hyperinflation suggesting underlying emphysema/COPD. 2. No acute lung infiltrates or edema. Lab Data Lab results reviewed: Yes I reviewed the patient's lab results. Labs: 07/07/24 22:53 Blood Blood Culture - Pending 07/07/24 22:18 Urine - Not Specified Urine Culture - Pending 07/07/24 22:34 Blood Blood Culture - Pending Laboratory Tests Range/Units 07/07/24 07/07/24 07/07/24 22:18 22:25 23:02 WBC (4.4-10.8) 10^3/uL 13.85 H RBC (4.36-5.78) 10^6/uL 4.29 L Hgb (13.5-17.5) g/dL 12.8 L Hct (40.0-50.0) % 39.1 L MCV (80-95) fL 91 MCH (27.0-33.0) pg 29.8 MCHC (32.0-36.0) % 32.7 RDW (11.8-14.1) % 16.3 H Plt Count (130-400) 10^3/uL 142 MPV (8.0-11.0) fL 9.2 Immature Gran % % 0.5 Neutrophils % % 88.5 Lymphocytes % % 4.8 Monocytes % % 5.9 Eosinophils % % 0.1 Basophils % % 0.2 Nucleated RBC % (0.0-0.3) % 0.0 Absolute Neutrophils (1.2-6.7) 10^3/uL 12.26 H Absolute Lymphocytes (1.2-3.4) 10^3/uL 0.66 L Absolute Monocytes (0.1-0.8) 10^3/uL 0.82 H Absolute Eosinophils (0.0-0.7) 10^3/uL 0.01 Absolute Basophils (0.0-0.2) 10^3/uL 0.03 VBG Lactate (0.6-1.4) mmol/L 1.5 H Sodium (136-145) mmol/L 140 Potassium (3.5-5.1) mmol/L 3.3 L Chloride (98-107) mmol/L 99 Carbon Dioxide (21.0-32.0) mmol/L 31.7 Anion Gap (3-11) mmol/L 9.3 BUN (7-18) mg/dL 29 H Creatinine (0.70-1.30) mg/dL 1.5 H Est GFR (CKD-EPI 2020) (mL/min/1.73m2) 47.36 Glucose (74-106) mg/dL 138 H Calcium (8.5-10.1) mg/dL 9.8 Total Bilirubin (0.2-1.0) mg/dL 1.07 H AST (15-37) U/L 18 ALT (16-63) U/L 18 Alkaline Phosphatase (46-116) U/L 150 H Total Protein (6.4-8.2) g/dL 7.1 Albumin (3.4-5.0) g/dL 2.7 L Urine Color Cancelled Yellow Urine Clarity Cancelled Clear Urine pH Cancelled 6.5 Ur Specific [place] Cancelled 1.020 Urine Protein Cancelled 100 H Urine Ketones Cancelled Negative Urine Blood Cancelled Moderate H Urine Nitrite Cancelled Positive H Urine Bilirubin Cancelled Negative Urine Urobilinogen Cancelled 0.2 Ur Leukocyte Esterase Cancelled Large H Urine RBC Not Applicable 10-20 H Urine WBC (0-5) HPF >50 H >50 H Ur Epithelial Cells Not Applicable Rare Urine Crystals Not Applicable Negative Urine Bacteria Not Applicable Few Urine Casts (Negative) LPF Negative Urine Mucus Not Applicable Negative Ur Culture Indicated? 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 Currently under surveillance with very low but detectible PSA (05/2024). Dr. Evans. 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 Major depressive disorder, single episode Leakage of other urinary catheter, initial encounter Family history of breast cancer Essential (primary) hypertension Delirium due to known physiological condition Contact with and (suspected) exposure to other hazardous substances Bradycardia, unspecified Closed fracture of left proximal humerus (01/10/23) CVA (cerebral vascular accident) Lymphoma Hypertension Surgical History History of craniotomy for brain bleed Family History Father Personal history of malignant neoplasm prostate cancer Social History Smoking/Tobacco Use Status: Current every day Tobacco Type: cigarettes Smoking packs per day: 1 Smoking cigarettes per day: 20.0 Smoking risk assessment performed?: Yes Alcohol Intake: former Drug use: Never Substance use type: does not use Housing: house Current gender identity: male Do you feel safe at home: Yes Do you feel safe in your relationship?: Yes
--- OUTSIDE RECORDS SUMMARY | 2024-07-07 22:22 | XMS_ITS | Encounter Summary ---
Author Name Department [place] Organization [place] Address [address] [place] [address] Care Team Providers Care Filling Machine Set Up Mechanic Name Role Phone KYRA VELASQUEZ Primary [...] Relationship to Policy Ervin [facility] (WNR) MEDICARE ADVANTAGE MCR(W NR) * Aug 23, 2023 [id number] ANNALISA LOYD ITE PATIENT [facility] (WNR) MEDICARE ADVANTAGE [facility] (WNR) Aug 23, 2020 [id number] [phone] ANNALISA LOYD ITE PATIENT [facility] (WNR) MEDICARE [facility](W NR) Aug 23, 2012 [id number] [phone] ANNALISA LOYD ITE PATIENT Selected Encounter [...] - NONE [place] [facility] Apr 06, 2024 01:00 PM AMBULATORY - NONE [place] [facility] Apr 06, 2024 01:00 PM AMBULATORY - MEDICINE [facility] Apr 10, 2024 01:30 PM AMBULATORY - MEDICINE [facility] Apr 10, 2024 01:31 PM AMBULATORY - NONE [place] [facility] Apr 11, 2024 10:00 AM AMBULATORY - SURGERY [facility] Apr 11, 2024 10:01 AM AMBULATORY [place]GERY [place] [facility] Apr 21, 2024 10:30 AM AMBULATORY - NONE [place] [facility] May 03, 2024 02:30 PM AMBULATORY - SURGERY [place] [facility] May 04, 2024 10:30 AM AMBULATORY - MEDICINE [place] [facility] May 04, 2024 11:00 AM AMBULATORY - SURGERY [place] [facility] May 04, 2024 12:30 PM AMBULATORY - NONE [place] [facility] May 04, 2024 01:00 PM AMBULATORY - SURGERY [place] [facility] May 08, 2024 02:30 PM AMBULATORY - MEDICINE [facility] May 08, 2024 02:31 PM AMBULATORY - NONE [place] [facility] May 16, 2024 10:00 AM AMBULATORY - SURGERY [facility] May 16, 2024 10:01 AM AMBULATORY - SURGERY [place] [facility] May 19, 2024 08:00 AM AMBULATORY - NONE [place] [facility] May 26, 2024 10:00 AM AMBULATORY - NONE [place] 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 NO [facility] Feb 21, 2024 10:15 AM VA-TOBACCO USE MED NO [facility] Feb 21, 2024 10:15 AM VA-TOBACCO USE [place] 30 MIN OF WAKEUP [facility] Feb 21, 2024 10:15 AM VA-TOBACCO USER EVERY DAY [facility] Jul 17, 2021 02:27 PM CURRENT SMOKER REINIER Bhatia [facility] Jul 01, 2021 08:55 PM VA-VAAES TOBACCO U SE CURRENT NRT DECLINE [facility] Jul 01, 2021 02:41 PM CURRENT SMOKER REINIER Bhatia [facility] Dec 08, 2020 08:45 PM [...] AM RENAL AND BLADDER ULTRASOUND: GALINA LOYD [id number] -1945 M Ex Date: FEB 21, 2024@11:00 Req Phys: BRITTNEY SOTO Pat Loc: [facility] OR [place] G2RD (Req'g L Img Loc: ULTRASOUND (OOS) Service: Unknown [facility] [address] (Case 55 COMPLETE) ULTRASOUND RENAL (US Detailed) CPT:25111 Reason for Study: US following ureteral stent removal, eval hydro/stones (Case 56 COMPLETE) ULTRASOUND PELVIS (US Detailed) CPT:71457 Clinical History: Please coordinate with Urology follow up in 3 months Report Status: Verified Date Reported: FEB 21, 2024 Date Verified: FEB 21, 2024 Ceramic Tile Installer E-Sig:/ES/BRITTNEY PEDERSEN Report: Ultrasound -- renal/bladder: COMPARISON: [...] BRITTNEY PEDERSEN, RADIOLOGY ATTENDING (Miah) /BRITTNEY FREIRE [facility] Encounter Notes: All associated encounter notes This section contains the clinical notes associated to the Encounter. Date/Time Encounter Note(s) Provider Source Mar 06, 2024 12:00 PM NONVA NOTE: LOCAL TITLE: NonVA Note STANDARD TITLE: NONVA NOTE DATE OF NOTE: MAR 06, 2024@12:00 ENTRY DATE: MAR 20, 2024@13:08:24 AUTHOR: ROXANNE ALLEN COSIGNER: URGENCY: STATUS: COMPLETED VistA Imaging - Scanned Document On License Of [facility] 03/06/2024 [facility] Visit Note Assessment and Plan Vitals Signs SCANNED DOCUMENT SIGNATURE NOT REQUIRED Electronically Filed: 03/20/2024 by: ROXANNE ALISHA ROXANNE BOYD [facility]
--- OUTSIDE RECORDS SUMMARY | 2024-07-07 22:22 | XMS_ITS | Encounter Summary ---
Author Name Department [place] Organization [place] Address [address] [place] [address] Care Team Providers Care Roll Picker Name Role Phone KYRA VELASQUEZ Primary Care [...] Ervin's Name Patient's Relationship to Policy Ervin [facility] (WNR) MEDICARE ADVANTAGE MCR(W NR) * Aug 23, 2023 [id number] ANNALISA LOYD ITE PATIENT [facility] (WNR) MEDICARE ADVANTAGE [facility] (WNR) Aug 23, 2020 [id number] [phone] ANNALISA LOYD ITE PATIENT [facility] (WNR) MEDICARE ADVANTAGE MCR(W NR) Aug 23, 2012 [id number] ANNALISA LOYD ITE PATIENT Selected Encounter This section includes the information on record at [place] for the Encounter. Date/Time Encounter Type Encounter Description Reason Pro vider Source Mar 21, 2024 11:16 AM Outpatient Encounter TELEPHONE TRIAGE IHE Encounter Template Text not used by [place] Plan of Treatment: Future Appointments (+ 6 [...] [place] [facility] Jun 07, 2024 01:00 PM AMBULATORY - [place]GERY [place] [facility] Jun 07, 2024 03:55 PM AMBULATORY - MEDICINE REINIER GAYLE [facility] Active, Pending, and Scheduled Orders This section [...] 04:04 PM Consult Order COMMUNITY CARE-ALLERGY Cons Fly Fishing Guide's Choice [facility] May 03, 2024 12:00 AM Laboratory - Chemi stry Order URORISK DIAGNOSTIC PROFILE(Q) 24H RENAL STONE KIT 24H URINE SP [facility] Social History: Smoking Status [...] Feb 21, 2024 10:15 AM VA-TOBACCO USE EMERGENCY MAN NO [facility] Feb 21, 2024 10:15 AM VA-TOBACCO USE MED NO [facility] Feb 21, 2024 10:15 AM VA-TOBACCO USE [place] 30 MIN OF WAKEUP [facility] Feb 21, 2024 10:15 AM VA-TOBACCO USER EVERY DAY [facility] Jul 17, 2021 02:27 PM CURRENT SMOKER REINIER GAYLE [facility] Jul 01, 2021 08:55 PM VA-VAAES TOBACCO U SE CURRENT NRT DECLINE [facility] Jul 01, 2021 02:41 PM CURRENT SMOKER REINIER GAYLE [facility] Dec 08, 2020 08:45 PM VA-TOBACCO USER [...] AM RENAL AND BLADDER ULTRASOUND: GALINA LOYD [id number] -1945 M Ex Date: FEB 21, 2024@11:00 Req Phys: BRITTNEY SOTO Loc: [facility] OR [place] G2RD (Req'g L Img Loc: ULTRASOUND (OOS) Service: [place] [facility] [address] (Case 55 COMPLETE) ULTRASOUND RENAL (US Detailed) CPT:92190 Reason for Study: US following ureteral stent removal, eval hydro/stones (Case 56 COMPLETE) ULTRASOUND PELVIS (US Detailed) CPT:89282 Clinical History: Please coordinate with Urology follow up in 3 months Report Status: Verified Date Reported: FEB 21, 2024 Date Verified: FEB 21, 2024 Machinist Job Setter E-Sig:/ES/BRITTNEY PEDERSEN Report: Ultrasound -- renal/bladder: COMPARISON: [...] BRITTNEY PEDERSEN, RADIOLOGY ATTENDING (Miah) /BRITTNEY FREIRE [facility] Encounter Notes: All associated encounter notes This section contains the clinical notes associated to the Encounter. Date/Time Encounter Note(s) Provider Source Mar 21, 2024 11:16 AM ADMINISTRATIVE NOT E: LOCAL TITLE: Has Admin Note STANDARD TITLE: ADMINISTRATIVE NOTE DATE OF NOTE: MAR 21, 2024@11:16 ENTRY DATE: MAR 21, 2024@11:16:42 AUTHOR: ELSI SCHULTE EXP COSIGNER: URGENCY: STATUS: COMPLETED Reason for call Clinic Name:[facility] PACT 08 PT RTC 1st call AND Letter sent 02/29/24 Discontinued 03/21/24 PID 02/29/24 ANNUAL AND TOMMY PAPERWORK FAILURE TO RESPOND /vivian/ ELSI SCHULTE Signed: 03/21/2024 11:18 [facility]
--- OUTSIDE RECORDS SUMMARY | 2024-07-07 22:22 | XMS_ITS ---
Author Name [facility] [place] Organization [place] Address [address] [place] [address] Care Team Providers Care Fuel Testing Technician Name Role Phone KYRA VELASQUEZ Primary [...] Ervin's Name Patient's Relationship to Policy Ervin [facility] (WNR) MEDICARE [facility](W NR) * Aug 23, 2023 [id number] ANNALISA LOYD ITE PATIENT [facility] (WNR) MEDICARE ADVANTAGE [facility] (WNR) Aug 23, 2020 [id number] [phone] ANNALISA LOYD ITE PATIENT [facility] (WNR) MEDICARE ADVANTAGE [facility](W NR) Aug 23, 2012 [id number] [phone] ANNALISA LOYD ITJannette PATIENT Selected Encounter [...] [place] [facility] May 08, 2024 02:30 PM AMBULATORY - MEDICINE [facility] May 08, 2024 02:31 PM AMBULATORY - NONE [place] [facility] May 16, 2024 10:00 AM AMBULATORY - SURGERY [facility] May 16, 2024 10:01 AM [place]UL[place]ORY [place] [facility] May 19, 2024 08:00 AM AMBULATORY - NONE [place] [facility] May 26, 2024 10:00 AM AMBULATORY - NONE [place] [facility] Jun 07, 2024 01:00 PM [place]ORY [place] [facility] Jun 07, 2024 03:55 PM AMBULATORY - MEDICINE REINIER Bhatia [facility] Active, Pending, and Scheduled Orders [...] PM Consult Order COMMUNITY CARE-ALLERGY Cons Senior Inspector's Choice [facility] May 03, 2024 12:00 AM Laboratory - Chemi stry Order URORISK DIAGNOSTIC PROFILE(Q) 24H RENAL STONE KIT 24H URINE SP [facility] Social History: [...] OF WAKEUP [facility] Tobacco Use [...] Feb 21, 2024 10:15 AM VA-TOBACCO USE OLIVING MACHINE OPERATOR NO [facility] Feb [...] TOBACCO U SE CURRENT NRT DECLINE WHITE [facility] Jul 01, 2021 02:41 PM CURRENT SMOKER REINIER GAYLE [facility] Dec 08, 2020 08:45 PM VA-TOBACCO USER EVERY DAY SONYA [facility] Dec 08, 2020 08:45 PM VA-VAAES TOBACCO U SE CURRENT NRT DECLINE SONYA [facility] Dec 08, 2020 06:58 PM VA-TOBACCO FORMER USER SONYA [facility] Apr 04, 2015 03:47 PM CURRENT SMOKER Less than a pack a day SONYA [facility] Apr 04, 2015 03:47 [...] 18, 2017 ADVANCE DIRECTIVE REBECCARADHA S SONYA [facility] Jul 08, 2017 ADVANCE DIRECTIVE DISCUSSION PURNIMA ROJAS [facility] Encounter Notes: All associated encounter notes This section contains the clinical notes associated to the Encounter. Date/Time Encounter Note(s) Provider Source Apr 01, 2024 11:33 AM ADMINISTRATIVE NOT E: LOCAL TITLE: CCC: SCHEDULING ADMINISTRATION STANDARD TITLE: ADMINISTRATIVE NOTE DATE OF NOTE: APR 01, 2024@11:33 ENTRY DATE: APR 01, 2024@11:33:46 AUTHOR: GHULAM LEVINE EXP COSIGNER: URGENCY: STATUS: COMPLETED Verify Patient Demographics; Successfully verified patient demographics Other/General comments: Vet is admitted to home health care with [facility]. Vet is admitted for wound care for left buttocks and left shoulder. Contact . /vivian/ GHULAM LEVINE V2 CCC AMSA Signed: 04/01/2024 11:35 Receipt Acknowledged By: 04/03/2024 08:32 /es/ JENIFER SHANE LPN for GHULAM CAN [facility]
--- OUTSIDE RECORDS SUMMARY | 2024-07-07 22:22 | XMS_ITS | Encounter Summary ---
Author Name [facility] [place] Address [address] [place] [address] Care Team Providers Care Metal Sprayer Protective Coating Name Role Phone KYRA VELASQUEZ Primary Care [...] Ervin's Name Patient's Relationship to Policy Ervin [facility] (WNR) MEDICARE [facility](W NR) * Aug 23, 2023 [id number] ANNALISA LOYD ITE PATIENT [facility] MCR (WNR) MEDICARE ADVANTAGE [facility] (WNR) Aug 23, 2020 [id number] [phone] ANNALISA LOYD ITE PATIENT [facility] (WNR) MEDICARE ADVANTAGE [facility](W NR) Aug 23, 2012 [id number] ANNALISA LOYD ITJannette PATIENT Selected Encounter [...] [place] [facility] Apr 06, 2024 01:00 PM AMBULATORY - NONE [place] [facility] Apr 06, 2024 01:00 PM AMBULATORY - MEDICINE [facility] Apr 10, 2024 01:30 PM AMBULATORY - MEDICINE [facility] Apr 10, 2024 01:31 PM AMBULATORY - NONE [place] [facility] Apr 11, 2024 10:00 AM AMBULATORY - SURGERY [facility] Apr 11, 2024 10:01 AM [place]UL[place]ORY [place] [facility] Apr 21, 2024 10:30 AM AMBULATORY - NONE [place] [facility] May 03, 2024 02:30 PM AMBUL[place]ORY [place] [facility] May 04, 2024 10:30 AM AMBUL[place]ORY [place]IC[place] [facility] May 04, 2024 11:00 AM [place]BUL[place]ORY [place] [facility] May 04, 2024 12:30 PM AMBULATORY - [place]ONE [place] [facility] May 04, 2024 01:00 PM AMBUL[place]ORY [place] [facility] May 08, 2024 02:30 PM AMBULATORY - MEDICINE [facility] May 08, 2024 02:31 PM AMBULATORY - [place]ONE [place] [facility] May 16, 2024 10:00 AM AMBULATORY - SURGERY [facility] May 16, 2024 10:01 AM AMBUL[place]ORY [place] [facility] May 19, 2024 08:00 AM AMBULATORY - [place]ONE [place] [facility] May 26, 2024 10:00 AM [place]ORY - [place]ONE [place] [facility] Jun 07, 2024 01:00 PM AMBULATORY - SURGERY [facility] Active, Pending, and [...] 12:13 PM Consult Order COMMUNITY CARE-NEUROLOGY Cons Carpet Loom Fixer's Choice [facility] Apr 06, 2024 04:04 PM Consult Order COMMUNITY CARE-ALLERGY Cons Carpet Loom Fixers [facility] Social History: Smoking Status (Most current) [...] 10:15 AM VA-TOBACCO USER EVERY DAY [facility] Tobacco Use History This section includes a history of the smoking, or tobacco-related health factors, that were collected on or before the date of the Encounter. The data comes from the [place] facility where the Encounter took place. Date/Time Smoking Status/Tobacco Use Comment F acility Feb 21, 2024 10:15 AM VA-TOBACCO USE ADVICE [facility] Feb 21, 2024 10:15 AM VA-TOBACCO USE FOOD PREPARATION KITCHEN AIDE NO [facility] Feb 21, 2024 10:15 AM VA-TOBACCO USE MED NO [facility] Feb 21, 2024 10:15 AM VA-TOBACCO USE WI 30 MIN OF WAKEUP [facility] Feb 21, 2024 10:15 AM VA-TOBACCO USER EVERY DAY [facility] Jul 17, 2021 02:27 PM CURRENT SMOKER WHIT Jannette [facility] Jul 01, 2021 08:55 PM VA-VAAES TOBACCO U SE CURRENT NRT DECLINE [facility] Jul 01, 2021 02:41 PM CURRENT SMOKER REINIER GAYLE [facility] Dec 08, 2020 08:45 PM VA-TOBACCO [...] Jul 08, 2017 ADVANCE DIRECTIVE DISCUSSION PURNIMA ROJSA [facility] Radiology Reports: +/- [...] AM RENAL AND BLADDER ULTRASOUND: GALINA LOYD [id number] -1945 M Ex Date: FEB 21, 2024@11:00 Req Phys: BRITTNEY SOTO Pat Loc: [facility] [place] G2RD (Req'g L Img Loc: ULTRASOUND (OOS) Service: [place] [address] (Case 55 COMPLETE) ULTRASOUND RENAL (US Detailed) CPT:06405 Reason for Study: US following ureteral stent removal, eval hydro/stones (Case 56 COMPLETE) ULTRASOUND PELVIS (US Detailed) CPT:79959 Clinical History: Please coordinate with Urology follow up in 3 months Report Status: Verified Date Reported: FEB 21, 2024 Date Verified: FEB 21, 2024 Chemical Supervisor E-Sig:/ES/BRITTNEY PEDERSEN Report: Ultrasound -- renal/bladder: COMPARISON: [...] BRITTNEY PEDERSEN, RADIOLOGY ATTENDING (Miah) /BRITTNEY FREIRE [facility] Encounter Notes: All associated encounter notes This section contains the clinical notes associated to the Encounter. Date/Time Encounter Note(s) Provider Source Feb 26, 2024 12:00 PM NONVA NOTE: LOCAL TITLE: NonVA Medical Records STANDARD TITLE: NONVA NOTE DATE OF NOTE: FEB 26, 2024@12:00 ENTRY DATE: MAR 01, 2024@11:06:54 AUTHOR: ETIENNE WOOD COSIGNER: URGENCY: STATUS: COMPLETED VistA Imaging - Scanned Document Date of Service (Procedure/Event): 02/26/2024 Note Title: NonVA Medical Records Type: PROCEDURE RECORD/REPORT Specialty: ORTHOPEDICS ORTHOPEDIC CONSULT AND OPERATIVE NOTES-LEFT HIP [facility] SCANNED DOCUMENT SIGNATURE NOT REQUIRED Electronically Filed: 03/01/2024 by: ETIENNE MCCORMACK Tobi [facility]
--- OUTSIDE RECORDS SUMMARY | 2024-07-07 22:22 | XMS_ITS ---
Author Name [facility] [place] Address [address] [place] [address] Care Team Providers Care Flat Finisher Name Role Phone KYRA VELASQUEZ Primary [...] Name Patient's Relationship to Policy Ervin [facility] (WNR) MEDICARE [facility](W NR) * Aug 23, 2023 [id number] ANNALISA LOYD ITE PATIENT [facility] (WNR) MEDICARE ADVANTAGE [facility] (WNR) Aug 23, 2020 [id number] [phone] ANNALISA LOYD ITE PATIENT [facility] (WNR) MEDICARE ADVANTAGE [facility](W NR) Aug 23, 2012 [id number] ANNALISA LOYD ITJannette PATIENT Selected Encounter [...] - SURGERY [place] [facility] May 04, 2024 10:30 AM AMBUL[place]ORY [place] [facility] May 04, 2024 11:00 AM AMBULATORY - SURGERY [place] [facility] May 04, 2024 12:30 PM AMBULATORY - NONE [place] [facility] May 04, 2024 01:00 PM AMBULATORY - SURGERY [place] [facility] May 08, 2024 02:30 PM AMBULATORY - MEDICINE [facility] May 08, 2024 02:31 PM AMBULATORY - [place]ONE [place] [facility] May 16, 2024 10:00 AM AMBULATORY - SURGERY [facility] May 16, 2024 10:01 AM AMBULATORY - [place]GERY [place] [facility] May 19, 2024 08:00 AM AMBULATORY - [place]ONE [place] [facility] May 26, 2024 10:00 AM [place]ORY - [place]ONE [place] [facility] Jun 07, 2024 01:00 PM AMBULATORY - SURGERY [facility] Active, [...] 12:13 PM Consult Order COMMUNITY CARE-NEUROLOGY Cons Motor Vehicles Supervisor's Choice [facility] Apr 06, 2024 04:04 PM Consult Order COMMUNITY CARE-ALLERGY Cons Motor Vehicles Supervisors [facility] Social History: Smoking Status (Most current) [...] 2024 10:15 AM VA-TOBACCO USER EVERY DAY [facility] Tobacco Use History This section includes a history of the smoking, or tobacco-related health factors, that were collected on or before the date of the Encounter. The data comes from the [place] facility where the Encounter took place. Date/Time Smoking Status/Tobacco Use Comment F acility Feb 21, 2024 10:15 AM VA-TOBACCO USE ADVICE [facility] Feb 21, 2024 10:15 AM VA-TOBACCO USE GRAIN SHIPPER NO [facility] Feb 21, 2024 10:15 AM VA-TOBACCO USE MED NO [facility] Feb 21, 2024 10:15 AM VA-TOBACCO USE WI 30 MIN OF WAKEUP [facility] Feb 21, 2024 10:15 AM VA-TOBACCO USER EVERY DAY [facility] Jul 17, 2021 02:27 PM CURRENT SMOKER WHIT Jannette [facility] Jul 01, 2021 08:55 PM VA-VAAES TOBACCO U SE CURRENT NRT DECLINE [facility] Jul 01, 2021 02:41 PM CURRENT SMOKER REINIER GAYLE [facility] Dec 08, 2020 08:45 PM [...] AM RENAL AND BLADDER ULTRASOUND: GALINA LOYD [id number] -1945 M Ex Date: FEB 21, 2024@11:00 Req Phys: BRITTNEY SOTO Pat Loc: [facility] [place] G2RD (Req'g L Img Loc: ULTRASOUND (OOS) Service: Unknown [facility] [place] [address] (Case 55 COMPLETE) ULTRASOUND RENAL (US Detailed) CPT:88854 Reason for Study: US following ureteral stent removal, eval hydro/stones (Case 56 COMPLETE) ULTRASOUND PELVIS (US Detailed) CPT:11765 Clinical History: Please coordinate with Urology follow up in 3 months Report Status: Verified Date Reported: FEB 21, 2024 Date Verified: FEB 21, 2024 Guest Services Officer E-Sig:/ES/BRITTNEY PEDERSEN Report: Ultrasound -- renal/bladder: COMPARISON: [...] BRITTNEY PEDERSEN, RADIOLOGY ATTENDING (Miah) /BRITTNEY FREIRE [facility] Encounter Notes: All associated encounter notes This section contains the clinical notes associated to the Encounter. Date/Time Encounter Note(s) Provider Source Mar 01, 2024 12:00 PM NONVA NOTE: LOCAL TITLE: NonVA Medical Records STANDARD TITLE: NONVA NOTE DATE OF NOTE: MAR 01, 2024@12:00 ENTRY DATE: MAR 13, 2024@12:28:27 AUTHOR: AGGIE JERONIMO COSIGNER: URGENCY: STATUS: COMPLETED VistA Imaging - Scanned Document NONVA DATE OF SERVICE: 03/01/2024 SPEECH PATHOLOGY EVALUATION [facility] SCANNED DOCUMENT SIGNATURE NOT REQUIRED Electronically Filed: 03/13/2024 by: AGGIE Gandara [facility]
--- OUTSIDE RECORDS SUMMARY | 2024-07-07 22:22 | XMS_ITS ---
Author Name [place] Address [address] [place] [address] Care Team Providers Care Supercharge Repair Supervisor Name Role Phone KYRA VELASQUEZ Primary [...] Policy Ervin [facility] (WNR) MEDICARE [facility](W NR) * Aug 23, 2023 [id number] ANNALISA LOYD ITE PATIENT [facility] MCR (WNR) MEDICARE ADVANTAGE [facility] (WNR) Aug 23, 2020 [id number] [phone] ANNALISA LOYD ITE PATIENT [facility] (WNR) MEDICARE ADVANTAGE [facility](W NR) Aug 23, 2012 [id number] 03 ANNALISA LOYD ITJannette PATIENT Selected Encounter This section includes the information on record at OR for the Encounter. Date/Time Encounter Type Encounter Description Reason Pro vider Source Mar 27, 2024 10:16 AM Outpatient Encounter ADMIN PAT ACTIVTIES (MASNONCT) IHE Encounter Template Text not used by OR Plan of Treatment: Future Appointments (+ 6 [...] [place] [facility] Apr 21, 2024 10:30 AM AMBULATORY - NONE [place] [facility] May 03, 2024 02:30 PM AMBULATORY - [place]GERY [place] [facility] May 04, 2024 10:30 AM AMBULATORY [place] [facility] May 04, 2024 11:00 AM AMBULATORY - [place]GERY [place] [facility] May 04, 2024 12:30 PM AMBULATORY - NONE [place] [facility] May 04, 2024 01:00 PM AMBULATORY - [place]ERY [place] [facility] May 08, 2024 02:30 PM AMBULATORY - MEDICINE [facility] May 08, 2024 02:31 PM AMBULATORY - NONE [place] [facility] May 16, 2024 10:00 AM AMBULATORY - SURGERY [facility] May 16, 2024 10:01 AM [place]UL[place] [facility] May 19, 2024 08:00 AM AMBULATORY - NONE [place] [facility] May 26, 2024 10:00 AM AMBULATORY - NONE [place] [facility] Jun 07, 2024 01:00 PM [place]BUL[place]ORY - [place] [facility] Jun 07, 2024 03:55 PM AMBULATORY - MEDICINE REINIER Bhatia [facility] Active, Pending, and Scheduled [...] 04:04 PM Consult Order COMMUNITY CARE-ALLERGY Cons Medicare Compliance Auditor's Choice [facility] May 03, 2024 12:00 AM Laboratory - Chemi stry Order URORISK DIAGNOSTIC PROFILE(Q) 24H RENAL STONE KIT 24H URINE SP [facility] Social History: Smoking Status (Most [...] 2024 10:15 AM VA-TOBACCO USER EVERY DAY [facility] Tobacco Use History This section includes a history of the smoking, or tobacco-related health factors, that were collected on or before the date of the Encounter. The data comes from the [place] facility where the Encounter took place. Date/Time Smoking Status/Tobacco Use Comment F acility Feb 21, 2024 10:15 AM VA-TOBACCO USE ADVICE [facility] Feb 21, 2024 10:15 AM VA-TOBACCO USE GLASS FRAME FITTER NO [facility] Feb 21, 2024 10:15 AM VA-TOBACCO USE MED NO [facility] Feb 21, 2024 10:15 AM VA-TOBACCO USE WI 30 MIN OF WAKEUP [facility] Feb 21, 2024 10:15 AM VA-TOBACCO USER EVERY DAY [facility] Jul 17, 2021 02:27 PM [...] DISCUSSION PURNIMA ROJAS [facility] Encounter Notes: All associated encounter notes This section contains the clinical notes associated to the Encounter. Date/Time Encounter Note(s) Provider Source Mar 27, 2024 10:16 AM ADMINISTRATIVE NOT E: LOCAL TITLE: CCC: SCHEDULING ADMINISTRATION STANDARD TITLE: ADMINISTRATIVE NOTE DATE OF NOTE: MAR 27, 2024@10:16:14 ENTRY DATE: MAR 27, 2024@10:16:14 AUTHOR: KELI SHEFFIELD COSIGNER: URGENCY: STATUS: COMPLETED Patient Demographics Patient Name: AGLINA LOYD Patient Primary Phone: [phone] Patient Primary Address: [address] [place] [id number] Patient : 1945 Patient Age: 78 Caller/Recipient Relation to Patient: Other If Other Describe Relation to Patient: Daughter Caller Name: Bertha Administrative Administrative Note Reason: Other Administrative Note Comments: Erath's daughter Berhta [facility] [phone] to discuss [facility] care options for upon the need. is currently in rehab and will be discharged on 03/31 and rehab will be discharging Erath with home health services but daughter is concerned will not follow through with services. Please call to discuss /es/ KELI LOPEZ 1 [facility] AMSA Signed: 03/27/2024 10:16 Receipt Acknowledged By: 03/27/2024 10:24 /es/ JENIFER SHANE LPN 03/27/2024 11:40 /es/ EFRAÍN VALIENTE for OJ GIL * AWAITING SIGNATURE * PILAR THAYER * AWAITING SIGNATURE * DAMARIS COCHRAN JASMINE L [place] [facility]
--- OUTSIDE RECORDS SUMMARY | 2024-07-07 22:22 | XMS_ITS | Encounter Summary ---
Author Name [place] Address [address] [place] [address] Care Team Providers Care Consumer Sales Representative Name Role Phone KYRA VELASQUEZ [...] Ervin [facility] (WNR) MEDICARE [facility](W NR) * Aug 23, 2023 [id number] ANNALISA LOYD ITE PATIENT [facility] MCR (WNR) MEDICARE ADVANTAGE [facility] (WNR) Aug 23, 2020 [id number] [phone] ANNALISA LOYD ITE PATIENT [facility] (WNR) MEDICARE ADVANTAGE [facility](W NR) Aug 23, 2012 [id number] ANNALISA LOYD ITJannette PATIENT Selected Encounter [...] AM[place]UL[place] - [place] [facility] May 04, 2024 [...] [place] [facility] May 19, 2024 08:00 AM AMBULATORY - NONE [place] [facility] May 26, 2024 10:00 AM AMBULATORY - NONE [place] [facility] Jun 07, 2024 01:00 PM AMBULATORY - SURGERY [facility] Active, Pending, and Scheduled Orders [...] 12:13 PM Consult Order COMMUNITY CARE-NEUROLOGY Cons Recycling Or Rubbish Collector's Choice [facility] Apr 06, 2024 04:04 PM Consult Order COMMUNITY CARE-ALLERGY Cons Recycling Or Rubbish Collectors [facility] Social History: Smoking Status (Most [...] Feb 21, 2024 10:15 AM VA-TOBACCO USE GLOST TILE SHADER NO [facility] Feb 21, 2024 10:15 AM VA-TOBACCO USE MED NO [facility] Feb 21, 2024 10:15 AM VA-TOBACCO USE WI 30 MIN OF WAKEUP [facility] Feb 21, 2024 10:15 AM VA-TOBACCO USER EVERY DAY [facility] Jul 17, 2021 02:27 PM CURRENT SMOKER WHIT Jannette [facility] Jul 01, 2021 08:55 PM [...] AM RENAL AND BLADDER ULTRASOUND: GALINA LOYD [id number] -1945 M Ex Date: FEB 21, 2024@11:00 Req Phys: BRITTNEY SOTO Pat Loc: [facility] [place] G2RD (Req'g L Img Loc: ULTRASOUND (OOS) Service: Unknown [facility] [place] [address] (Case 55 COMPLETE) ULTRASOUND RENAL (US Detailed) CPT:39696 Reason for Study: US following ureteral stent removal, eval hydro/stones (Case 56 COMPLETE) ULTRASOUND PELVIS (US Detailed) CPT:61932 Clinical History: Please coordinate with Urology follow up in 3 months Report Status: Verified Date Reported: FEB 21, 2024 Date Verified: FEB 21, 2024 Supervisor Cell Room E-Sig:/ES/BRITTNEY PEDERSEN Report: Ultrasound -- renal/bladder: COMPARISON: [...] BRITTNEY PEDERSEN, RADIOLOGY ATTENDING (Miah) /BRITTNEY FREIRE [facility] Encounter Notes: All associated encounter notes This section contains the clinical notes associated to the Encounter. Date/Time Encounter Note(s) Provider Source Feb 29, 2024 09:50 AM LETTERS: LOCAL TITLE: LETTER TO PATIENT ATTEMPT TO CONTACT STANDARD TITLE: LETTERS DATE OF NOTE: FEB 29, 2024@09:50 ENTRY DATE: FEB 29, 2024@09:50:20 AUTHOR: CRESENCIO HOLLINS COSIGNER: URGENCY: STATUS: COMPLETED [facility] [address] [place] [address] FEB 29, 2024 GALINA LOYD JR [address] [place], [place] [address] Dear GALINA LOYD JR, [facility] [place] is trying to reach you to reschedule [...] date for you: Service: Urology Service Direct: [phone] Ext: [phone] Toll Free: [phone] Ext: [phone] We look forward to hearing from you. Sincerely, Clinical Operations CRESENCIO HOLLINS [facility] Feb 29, 2024 09:49 AM ADMINISTRATIVE NOT E: LOCAL TITLE: Has Admin Note STANDARD TITLE: ADMINISTRATIVE NOTE DATE OF NOTE: FEB 29, 2024@09:49 ENTRY DATE: FEB 29, 2024@09:49:33 AUTHOR: CRESENCIO HOLLINS EXP COSIGNER: URGENCY: STATUS: COMPLETED Has Admin Note Has ADDENDA Reason for call Clinic Name:[facility] MD RTC- PID 03/01/2024 1st call, Letter sent PT CXD 03/01/24 APPT /vivian/ CRESENCIO HOLLINS LEAD CONCRETE TILE MACHINE OPERATOR Signed: 02/29/2024 09:50 03/20/2024 ADDENDUM STATUS: COMPLETED Rtc dispositioned for failed mandated rescheduliing effort- no response back from the pt /vivian/ CRESENCIO HOLLINS LEAD CONCRETE TILE MACHINE OPERATOR Signed: 03/20/2024 14:23 CRESENCIO HOLLINS [facility]
--- OUTSIDE RECORDS SUMMARY | 2024-07-07 22:22 | XMS_ITS | Encounter Summary ---
Author Name [place] Address [address] [place] [address] Care Team Providers Care Rails Developer Name Role Phone KYRA VELASQUEZ [...] Patient's Relationship to Policy Ervin [facility] (WNR) MEDICARE ADVANTAGE MCR(W NR) * Aug 23, 2023 [id number] ANNALISA EDUARDO ITE PATIENT [facility] (WNR) MEDICARE ADVANTAGE [facility] (WNR) Aug 23, 2020 [id number] [phone] ANNALISA EDUARDO ITE PATIENT [facility] (WNR) MEDICARE [facility](W NR) Aug 23, 2012 [id number] [phone] ANNALISA EDUARDO ITE PATIENT Selected Encounter [...] AMBULATORY - NONE [place] [facility] Apr 06, 2024 01:00 PM AMBULATORY - NONE [place] [facility] Apr 06, 2024 01:00 PM AMBULATORY - MEDICINE [facility] Apr 10, 2024 01:30 PM AMBULATORY - MEDICINE [facility] Apr 10, 2024 01:31 PM AMBULATORY - NONE [place] [facility] Apr 11, 2024 10:00 AM AMBULATORY - SURGERY [facility] Apr 11, 2024 10:01 AM [place] [facility] Apr 21, 2024 10:30 AM AMBULATORY - NONE [place] [facility] May 03, 2024 02:30 PM [place]BUL[place]ORY [place] [facility] May 04, 2024 10:30 AM [place] [facility] May 04, 2024 11:00 AM [place]BUL[place]ORY [place] [facility] May 04, 2024 12:30 PM AMBULATORY - NONE [place] [facility] May 04, 2024 01:00 PM [place]BUL[place]ORY [place] [facility] May 08, 2024 02:30 PM AMBULATORY - MEDICINE [facility] May 08, 2024 02:31 PM AMBULATORY - NONE [place] [facility] May 16, 2024 10:00 AM AMBULATORY - SURGERY [facility] May 16, 2024 10:01 AM [place]BUL[place]ORY [place] [facility] May 19, 2024 08:00 AM AMBULATORY - NONE [place] [facility] May 26, 2024 10:00 AM AMBULATORY - NONE [place] [facility] Jun 07, 2024 01:00 PM [facility] 04:04 PM Consult Order COMMUNITY CARE-ALLERGY Cons Tile Molder Hand's Choice [facility] Social History: [...] Feb 21, 2024 10:15 AM VA-TOBACCO USE VESSEL BUILDER NO [facility] Feb 21, 2024 10:15 AM VA-TOBACCO USE MED NO [facility] Feb 21, 2024 10:15 AM VA-TOBACCO USE WI 30 MIN OF WAKEUP [facility] Feb 21, 2024 10:15 AM VA-TOBACCO USER EVERY DAY [facility] Jul 17, 2021 02:27 PM CURRENT SMOKER REINIER Bhatia [facility] Jul 01, 2021 08:55 [...] AM RENAL AND BLADDER ULTRASOUND: GALINA EDUARDO [id number] -1945 M Ex Date: FEB 21, 2024@11:00 Req Phys: BRITTNEY SOTO Pat Loc: [facility] [place] G2RD (Req'g L Img Loc: ULTRASOUND (OOS) Service: Unknown [facility] [place] [address] (Case [id number] COMPLETE) ULTRASOUND RENAL (US Detailed) CPT:56262 Reason for Study: US following ureteral stent removal, eval hydro/stones (Case 56 COMPLETE) ULTRASOUND PELVIS (US Detailed) CPT:57236 Clinical History: Please coordinate with Urology follow up in 3 months Report Status: Verified Date Reported: FEB 21, 2024 Date Verified: FEB 21, 2024 Policy Writer Sales E-Sig:/ES/BRITTNEY PEDERSEN Report: Ultrasound -- renal/bladder: COMPARISON: [...] PEDERSEN, RADIOLOGY ATTENDING (Miah) /BRITTNEY FREIRE [facility] Encounter Notes: All associated encounter notes [...] Received an email from Teresa Dowling at [facility] looking to see whether this [place] is adequately service connected to receive OCC-Acute Rehab referral for SNF stay. ([email or web address] ) Informed that this [place] is 100% service connected and does qualify for VA coverage of short-term rehab. He is currently at [facility] under his managed medicare through [facility] and has been given a cut date of 03/18. Advised that Teresa will need to get the following to me immediately in order to write an authorization to excelsior picker where [facility] is dropping off: ======= Good morning [...] Consult: Community Care-Acute Rehab Consult No: [id number] [facility] Referral #: [id number] Community Provider Info: Site Name: [facility] Address: [address] [place] [address], [id number] Phone #: [phone] Fax #: [phone] Specialty: Long-Term Facility Chief Complaint, as noted on entered consult: s/p inpatient hospitalization at [facility] following left proximal femur fracture with ORIF 02/27, now requiring additional SNF care for ongoing PT services. [place] Admitted? yes Level of Care Coordination COMPLEX Care Coordination was determined from: Chart Review and consult tool box calculations Facility Community Care Office Contact Care Coordination Point of Contact: Teresa Dowling, Rod Buster Helper [email or web address] Services: Complex Moderate Care Coordination Services Case Management, if appropriate Direct communications with interdisciplinary team Plan: has utilized his Managed Medicare plan for the first 20 days of rehab stay. This authorization is valid for 100 days from 03/18/24 through 06/25/24, while skilled services are in place. This OCC RN remains available to assist during validity period of authorization. /vivian/ KALE WARREN BA, RN CNOR Registered Nurse Signed: 03/17/2024 11:29 KALE WARREN Tobi [facility]
--- OUTSIDE RECORDS SUMMARY | 2024-07-07 22:22 | XMS_ITS ---
Author Name [place] Address [address] [place] [address] Care Team Providers Care Public Works Manager Name Role Phone KYRA VELASQUEZ Primary [...] Policy Ervin [facility] (WNR) MEDICARE [facility](W NR) * Aug 23, 2023 [id number] ANNALISA LOYD ITE PATIENT [facility] MCR (WNR) MEDICARE ADVANTAGE [facility] (WNR) Aug 23, 2020 [id number] [phone] ANNALISA LOYD ITE PATIENT [facility] (WNR) MEDICARE ADVANTAGE [facility](W NR) Aug 23, 2012 [id number] ANNALISA LOYD ITJannette PATIENT Selected Encounter [...] [place] [facility] Jun 07, 2024 01:00 PM AMBULATORY - [place] [facility] Jun 07, 2024 03:55 PM AMBULATORY - MEDICINE [facility] Active, Pending, and [...] 04:04 PM Consult Order COMMUNITY CARE-ALLERGY Cons Manufacturing Team Member's Choice [facility] May 03, 2024 12:00 AM Laboratory - Chemi stry Order URORISK DIAGNOSTIC PROFILE(Q) 24H RENAL STONE KIT 24H URINE SP [facility] Lab Results: +/- 30 [...] Type: PLASMA Comment: , Tests performed on FanBridge Moses SN:[id number] (405) Ordering Provider: ADVID FAM Report Released Date/Time: Nov 15, 2023 11:30 AM Reporting [facility] [address] [facility] [address] Performing Lab: [facility] [address] [facility] [address] UREA NITROGEN 10 mg/dL 03-16May 04, 2024 10:32 AM [facility] CREATININE WITH eGFR PANEL Specimen Type: PLASMA Comment: , Tests performed on [employer] [place] SN:[id number] (405) Ordering Provider: DAVID FAM Report Released Date/Time: Nov 15, 2023 11:30 AM Reporting Lab: [facility] [address] [place] [facility] [place] [place] [address] Performing Lab: [facility] [address] [facility] [address] CREATININE 0.91 mg/dL 0.50-1.50 eGFR(CKD-EPI 2020) 86 [...] Feb 21, 2024 10:15 AM VA-TOBACCO USE LATIN DANCE INSTRUCTOR NO [facility] Feb 21, 2024 [...] 2021 02:41 PM CURRENT SMOKER WHIT Jannette [facility] Dec 08, 2020 [...] Source Nov 18, 2017 ADVANCE DIRECTIVE REBECCARADHA [facility] Jul 08, 2017 ADVANCE [...] CTA ABDOMEN AND PE LVIS: GALINA LOYD [id number] -1945 M Exm Date: MAY 04, 2024@12:30 Req Phys: VIMAL FAM Pat Loc: [facility] VASCULAR 15 M3RH (Req'g Lo Img Loc: CT SCAN (OOS) Service: [place] [address] (Case [id number] COMPLETE) CTA ABDOMEN AND PELVIS (CT Detailed) CPT:40073 Contrast Media : Non-ionic Iodinated Reason for [...] 05, 2024 Date Verified: MAY 05, 2024 Bottom Saw Operator E-Sig:/VIVIAN/NÉSTOR PASCUAL Report: CTA ABDOMEN AND PELVIS [...] REQUIRED Primary Interpreting Staff: NÉSTOR PASCUAL, RADIOLOGIST (Bottom Saw Operator) /NÉSTOR CONNER T [facility] Encounter Notes: All associated encounter notes This [...] Patient Name: GALINA LOYD Patient Primary Phone: [phone] Patient Primary [address]: [address] [place] [address] Patient : 1945 Patient Age: 78 Caller/Recipient Relation to Patient: Other If Other Describe Relation to Patient: [facility] Caller Name: Saturnino HusamJorge A Administrative Administrative Note Reason: Home Health / Correction Administrative Note Comments: Non VA Agency calling to notify pact team: Name of caller/title: Whit Lea RN Agency: [facility] Call back number: Medical Report: Whit is requesting see PCP for discharge follow up and for a wound on his left shoulder and an unstageable ulcer on left buttocks which is full of yellow slough. Please contact patient to assist with scheduling. IMPORTANT: This note was created by [facility] Clinical Contact Center staff. Please do not alert the staff member by adding them as a signer for future communications. Alerts are not monitored by this user. /vivian/ ZOË DANIEL VISN1 CCC AMSA Signed: 04/05/2024 13:36 Receipt Acknowledged By: 04/05/2024 13:53 /vivian/ JENIFER SHANE LPN 04/05/2024 13:53 /vivian/ EFRAÍN VALIENTE for OJ Kirsten GIL 04/05/2024 13:58 /es/ ELSI SCHULTE 04/05/2024 ADDENDUM STATUS: COMPLETED RTC placed for provider follow up /es/ EFRAÍN VALIENTE Signed: 04/05/2024 13:52 04/05/2024 ADDENDUM STATUS: COMPLETED Please reschedule patient from previously cancelled appt /es/ JENIFER SHANE LPN Signed: 04/05/2024 13:53 ZOË DANIEL [facility]
--- OUTSIDE RECORDS SUMMARY | 2024-07-07 22:22 | XMS_ITS ---
Author Name [place] Address [address] [place] [address] Care Team Providers Care Tree Scout Name Role Phone KYRA VELASQUEZ Primary Care [...] Ervin's Name Patient's Relationship to Policy Ervin [facility] (WNR) MEDICARE ADVANTAGE MCR(W NR) * Aug 23, 2023 [id number] ANNALISA LOYD ITE PATIENT [facility] (WNR) MEDICARE ADVANTAGE [facility] (WNR) Aug 23, 2020 [id number] [phone] ANNALISA LOYD ITE PATIENT [facility] (WNR) MEDICARE [facility](W NR) Aug 23, 2012 [id number] ANNALISA LOYD ITE PATIENT Selected Encounter [...] 06, 2024 01:00 PM AMBULATORY - MEDICINE [facility] Apr 10, 2024 01:30 PM AMBUL[place]ORY [place] [facility] May 19, 2024 08:00 AM AMBULATORY - NONE [place] [facility] May 26, 2024 10:00 AM AMBULATORY - NONE [place] [facility] Jun 07, 2024 01:00 PM AMBULATORY - SURGERY [facility] Active, [...] of theEncounter. The data comes from all [place] treatment facilities. Test Date/Time Test Type Test Details Facility Name January 18, 2024 12:13 PM Consult Order COMMUNITY CARE-NEUROLOGY Cons Academic Guidance Specialist's Choice [facility] Apr 06, 2024 04:04 PM Consult Order COMMUNITY CARE-ALLERGY Cons Academic Guidance Specialist's [facility] Social History: Smoking Status [...] 2024 10:15 AM VA-TOBACCO USER EVERY DAY [facility] Tobacco Use History This section includes a history of the smoking, or tobacco-related health factors, that were collected on or before the date of the Encounter. The data comes from the [place] facility where the Encounter took place. Date/Time Smoking Status/Tobacco Use Comment F acility Feb 21, 2024 10:15 AM VA-TOBACCO USE ADVICE [facility] Feb 21, 2024 10:15 AM VA-TOBACCO USE MANAGER CRISIS NO [facility] Feb 21, 2024 10:15 AM VA-TOBACCO USE MED NO [facility] Feb 21, 2024 10:15 AM VA-TOBACCO USE WI 30 MIN OF WAKEUP [facility] Feb 21, 2024 10:15 AM VA-TOBACCO USER EVERY DAY [facility] Jul 17, 2021 02:27 PM CURRENT SMOKER REINIER Bhatia [facility] Jul 01, 2021 [...] AM RENAL AND BLADDER ULTRASOUND: GALINA LOYD [id number] -1945 M Ex Date: FEB 21, 2024@11:00 Req Phys: BRITTNEY SOTO Loc: [facility] [place] G2RD (Req'g L Img Loc: ULTRASOUND (OOS) Service: [place] [address] (Case [id number] COMPLETE) ULTRASOUND RENAL (US Detailed) CPT:96679 Reason for Study: US following ureteral stent removal, eval hydro/stones (Case 56 COMPLETE) ULTRASOUND PELVIS (US Detailed) CPT:01034 Clinical History: Please coordinate with Urology follow up in 3 months Report Status: Verified Date Reported: FEB 21, 2024 Date Verified: FEB 21, 2024 Manager In Home E-Sig:/ES/BRITTNEY PEDERSEN Report: Ultrasound -- renal/bladder: COMPARISON: [...] BRITTNEY PEDERSEN, RADIOLOGY ATTENDING (Miah) /BRITTNEY FREIRE [facility] Encounter Notes: All associated encounter notes [...] COMPLETED Community Care Consult- Acute Rehab Opal, Video Network Engineer, [facility], (contact number [phone]) secure emailed asking about 's service connection in preparation for discharge to SNF/HAFSA. Informed: PRIMARY ELIGIBILTY CODE - SERVICE CONNECTED 50% to 100%SERVICE CONNECTED % - 100 ==== Secure email response: Tiburcio Joseph- Galina Cates 45 is eligible for VA covered SNF/HAFSA. It is recommended he first use his Medicare benefit for the first 20 days. Then if care is still needed, the VA can write for another 100 days. Thank you for checking with us on this and for partnering in care for this ! Laine kingston/ Laine Lua DNP, MSA, RN-BC [facility] Clinical Carpet Weaver Signed: 03/01/2024 07:29 LAINE LUA [facility]
--- OUTSIDE RECORDS SUMMARY | 2024-07-07 22:22 | XMS_ITS | Encounter Summary ---
Author Name Department [place] Organization [place] Address [address] [place] [address] Care Team Providers Care Neon Glass Blower Name Role Phone KYRA VELASQUEZ Primary Care [...] Ervin's Name Patient's Relationship to Policy Ervin [facility] (WNR) MEDICARE ADVANTAGE MCR(W NR) * Aug 23, 2023 [id number] ANNALISA LOYD ITE PATIENT [facility] (WNR) MEDICARE ADVANTAGE [facility] (WNR) Aug 23, 2020 [id number] [phone] ANNALISA LOYD ITE PATIENT [facility] (WNR) MEDICARE [facility](W NR) Aug 23, 2012 [id number] ANNALISA LOYD ITE PATIENT Selected Encounter [...] [place] [facility] May 26, 2024 10:00 AM AMBULATORY - NONE [place] [facility] Jun 07, 2024 01:00 PM AMBULATORY - [...] 04:04 PM Consult Order COMMUNITY CARE-ALLERGY Cons Racebook Writer's Choice [facility] Social History: Smoking [...] MIN OF WAKEUP [facility] Tobacco Use History [...] Feb 21, 2024 10:15 AM VA-TOBACCO USE 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 NO [facility] Feb 21, [...] AM RENAL AND BLADDER ULTRASOUND: GALINA LOYD [id number] -1945 M Ex Date: FEB 21, 2024@11:00 Req Phys: BRITTNEY SOTO Pat Loc: [facility] [place] G2RD (Req'g L Img Loc: ULTRASOUND (OOS) Service: Unknown [facility] [address] (Case [id number] COMPLETE) ULTRASOUND RENAL (US Detailed) CPT:46970 Reason for Study: US following ureteral stent removal, eval hydro/stones (Case 56 COMPLETE) ULTRASOUND PELVIS (US Detailed) CPT:69074 Clinical History: Please coordinate with Urology follow up in 3 months Report Status: Verified Date Reported: FEB 21, 2024 Date Verified: FEB 21, 2024 Geological Manager E-Sig:/ES/BRITTNEY PEDERSEN Report: Ultrasound -- renal/bladder: COMPARISON: [...] ATTENDING (Miah) /BRITTNEY FREIRE [facility] Encounter Notes: All [...] Document Community Care - Acute Rehab 03/15/2024 [facility] N Adv - Skilled Evaluation Vitals SCANNED DOCUMENT SIGNATURE NOT REQUIRED Electronically Filed: 03/20/2024 by: [place]ANNE [place] [facility]
--- OUTSIDE RECORDS SUMMARY | 2024-07-07 22:23 | XMS_ITS ---
[place] NUTRITION/DIETETICS-INDIVIDUAL [facility] CB Encounter Summary Created on: July 07, 2024 GALINA LOYD : 1945 Sex: Male Author Name [facility] [place] Address [address] [place] [address] Care Team Providers Care Surgical Rn Name Role Phone RONKATHARINEKYRA Primary Care Provider [...] ADVANTAGE MCR(W NR) * Aug 23, 2023 [id number] ANNALISA LOYD ITE PATIENT [facility] (WNR) MEDICARE ADVANTAGE [facility] (WNR) Aug 23, 2020 [id number] [phone] ANNALISA LOYD ITE PATIENT [facility] (WNR) MEDICARE [facility](W NR) Aug 23, 2012 [id number] ANNALISA LOYD ITE PATIENT Selected Encounter [...] activities for the patient from all [place] treatmentfacilities. This section includes future appointments and [...] [place] [facility] Jun 07, 2024 01:00 PM AMBUL[place]ORY [place] [facility] Jun 07, 2024 03:55 PM [place] [facility] Jun 13, 2024 10:00 AM AMBULATORY - SURGERY [facility] Jun 13, 2024 10:01 AM [place]BUL[place]ORY [place] [facility] Jun 15, 2024 09:00 AM AMBULATORY - NONE [place] [facility] Jun 20, 2024 11:30 AM AMBULATORY - NONE [place] [facility] Active, Pending, and Scheduled Orders This section includes a listing of several types of active, pending, and scheduled orders, including clinic medications orders, diagnostic test orders, procedure orders and consult orders; where the start date of the order is 45 days before the date of the Encounter or 45 days after the date of theEncounter. The data comes from all [place] treatment facilities. Test Date/Time Test Type Test Details Facility Name Apr 06, 2024 04:04 PM Consult Order [facility]ITY CARE-ALLERGY Cons Maintenance Instructor's Choice [facility] May 03, 2024 12:00 AM Laboratory - Chemi stry Order URORISK DIAGNOSTIC PROFILE(Q) 24H RENAL STONE KIT 24H URINE SP [facility] Lab Results: +/- 30 [...] Range Comment May 04, 2024 10:32 AM [facility] UREA NITROGEN Specimen Type: PLASMA Comment: , Tests performed on [employer] Moses [id number] (405) Ordering Provider: DAVID FAM Report Released Date/Time: Nov 15, 2023 11:30 AM Reporting Lab: [facility] [address] [place] [place] [place] [address] Performing Lab: [place] [facility] [address] [place] [facility] [place] [address] UREA NITROGEN 10 mg/dL 03-16May 04, 2024 10:32 AM [facility] CREATININE WITH eGFR PANEL Specimen Type: PLASMA Comment: , Tests performed on [employer] Moses [id number] (405) Ordering Provider: DAVID FAM Report Released Date/Time: Nov 15, 2023 11:30 AM Reporting Lab: [place] [facility] [address] [place] [facility] [place] [address] Performing Lab: [facility] [address] [place] [facility] [place] [address] CREATININE 0.91 mg/dL 0.50-1.50 eGFR(CKD-EPI 2020) 86 [...] May 14, 2022 09:30 AM VA-TOBACCO USE DATA PROCESSING SUPERVISOR NO [facility] May 14, 2022 [...] December 28, 2018 11:23 AM VA-TOBACCO USE DATA PROCESSING SUPERVISOR NO [facility] December 28, 2018 [...] CTA ABDOMEN AND PE LVIS: GALINA LOYD [id number] -1945 M Exm Date: MAY 04, 2024@12:30 Req Phys: VIMAL FAM Pat Loc: [facility] 15 M3RH (Req'g Lo Img Loc: CT SCAN (OOS) Service: [place] [address] (Case [id number] COMPLETE) CTA ABDOMEN AND PELVIS (CT Detailed) CPT:73434 Contrast Media : Non-ionic Iodinated Reason for [...] 05, 2024 Date Verified: MAY 05, 2024 [employer] [facility] [employer] E-Sig:/ES/NÉSTOR PASCUAL Report: CTA ABDOMEN AND PELVIS [...] REQUIRED Primary Interpreting Staff: NÉSTOR PASCUAL, RADIOLOGIST ([employer]) /NÉSTOR CONNER T [facility] Encounter Notes: All associated encounter notes This section contains the clinical notes associated to the Encounter. Date/Time Encounter Note(s) Provider Source Apr 10, 2024 01:57 PM TELEHEALTH NOTE: LOCAL TITLE: Telehealth Hostage Negotiator Note STANDARD TITLE: TELEHEALTH NOTE DATE OF NOTE: APR 10, 2024@13:57 ENTRY DATE: APR 10, 2024@13:58:02 AUTHOR: ADITI GARCIA EXP COSIGNER: URGENCY: STATUS: COMPLETED Patient is marked today as a No Show for scheduled NUTRITION appoinment. NS letter sent. /vivian/ ADITI GARCIA Health Hostage Negotiator Signed: 04/10/2024 13:[address] [facility]
--- OUTSIDE RECORDS SUMMARY | 2024-07-07 22:23 | XMS_ITS | Encounter Summary ---
Author Name [place] Address [address] [place] [address] Care Team Providers Care Retirement Plan Counselor Name Role Phone RONKATHARINEKYRA Primary Care Provider [...] Patient's Relationship to Policy Ervin [facility] (WNR) MEDICARE [facility](W NR) * Aug 23, 2023 [id number] ANNALISA LOYD ITE PATIENT [facility] (WNR) MEDICARE ADVANTAGE [facility] (WNR) Aug 23, 2020 [id number] [phone] ANNALISA LOYD ITE PATIENT [facility] (WNR) MEDICARE [facility](W NR) Aug 23, 2012 [id number] ANNALISA LOYD ITE PATIENT Selected Encounter [...] activities for the patient from all [place] [facility] This section includes future appointments [...] [facility] Jun 07, 2024 01:00 PM AMBUL[place]ORY [place] [facility] Jun 07, 2024 03:55 PM [place]ORY [place] [facility] Jun 13, 2024 10:00 AM AMBULATORY - SURGERY [facility] Jun 13, 2024 10:01 AM AMBUL[place]ORY - SURGERY [place] [...] of theEncounter. The data comes from all [place] treatment facilities. Test Date/Time Test Type Test Details Facility Name Apr 06, 2024 04:04 PM Consult Order COMMUNITY CARE-ALLERGY Cons Electrotype Finisher's Choice [facility] May 03, 2024 12:00 AM Laboratory - Chemi stry Order URORISK DIAGNOSTIC PROFILE(Q) 24H RENAL STONE KIT 24H URINE SP [facility] Lab Results: +/- 30 days [...] Type: PLASMA Comment: , Tests performed on Jildy Moses [id number] (405) Ordering Provider: DAVID FAM Report Released Date/Time: Nov 15, 2023 11:30 AM [facility] [address] [place] [facility] [place] [place] [place] [address] Performing Lab: [facility] [address] [facility] [address] UREA NITROGEN 10 mg/dL -May 04, 2024 10:32 AM [facility] CREATININE WITH eGFR PANEL Specimen Type: PLASMA Comment: , Tests performed on Jildy Moses [id number] (405) Ordering Provider: DAVID FAM Report Released Date/Time: Nov 15, 2023 11:30 AM Reporting [facility] [address] [place] [facility] [place] [address] [facility] [address] [facility] [address] CREATININE 0.91 mg/dL 0.50-1.50 eGFR(CKD-EPI 2020) 86 [...] Feb 21, 2024 10:15 AM VA-TOBACCO USE AIR BATTLE MANAGER NO [facility] Feb 21, 2024 10:15 AM VA-TOBACCO USE MED NO [facility] Feb 21, 2024 10:15 AM VA-TOBACCO USE WI 30 MIN OF WAKEUP [facility] Feb 21, 2024 10:15 AM VA-TOBACCO USER EVERY DAY [facility] Jul 17, 2021 02:27 PM [...] Source Nov 18, 2017 ADVANCE DIRECTIVE FERNANDEZRADHA [facility] Jul 08, 2017 ADVANCE [...] CTA ABDOMEN AND PE LVIS: GALINA LOYD [id number] -1945 M Exm Date: MAY 04, 2024@12:30 Req Phys: VIMAL FAM Pat Loc: [facility] 15 M3RH (Req'g Lo Img Loc: CT SCAN (OOS) Service: [place] [address] (Case [id number] COMPLETE) CTA ABDOMEN AND PELVIS (CT Detailed) CPT:55093 Contrast Media : Non-ionic Iodinated Reason for [...] 05, 2024 Date Verified: MAY 05, 2024 Sexual Assault Counsellor E-Sig:/ES/NÉSTOR PASCUAL Report: CTA ABDOMEN AND PELVIS [...] REQUIRED Primary Interpreting Staff: NÉSTOR PASCUAL, RADIOLOGIST (Sexual Assault Counsellor) /NÉSTOR CONNER Tobi [facility] Encounter [...] ROCURONIUM BROMIDE /es/ Laine Lua DNP, GLENN, RN-BC [facility] Clinical Chha Signed: 04/07/2024 08:17 Receipt Acknowledged By: 04/07/2024 08:28 /es/ KYRA VELASQUEZ M.D INTERNAL MEDICINE, [facility] LAINE LUA [facility]
--- OUTSIDE RECORDS SUMMARY | 2024-07-07 22:23 | XMS_ITS | Encounter Summary ---
Author Name [facility] [place] Address [address] [place] [address] Care Team Providers Care Tombstone Setter Name Role Phone RONKATHARINEKYRA Primary Care Provider [...] Patient's Relationship to Policy Ervin [facility] (WNR) MEDICARE [facility](W NR) * Aug 23, 2023 [id number] ANNALISA LOYD ITE PATIENT [facility] (WNR) MEDICARE ADVANTAGE [facility] (WNR) Aug 23, 2020 [id number] [phone] ANNALISA LOYD ITE PATIENT [facility] (WNR) MEDICARE [facility](W NR) Aug 23, 2012 [id number] ANNALISA LOYD ITE PATIENT Selected Encounter This section includes the information on record at [place] for the Encounter. Date/Time Encounter Type Encounter Description Reason Pro vider Source Apr 07, 2024 08:07 AM Outpatient Encounter EVENT (HISTORICAL) IHE Encounter Template Text not used by [facility] Plan of Treatment: Future Appointments (+ 6 months) and Future Tests (+/- 45 days) The Plan of Treatment section includes future care activities for the patient from all [place] [facility]. This section includes future appointments and future orders which are active, pending or scheduled. Future Appointments This section includes appointments that were scheduled to occur 6 months from the date of the Encounter, up to a maximum of 20 appointments. The data comes from all [place] treatment facilities. Appointment Date/Time Appointment Type Appointme [...] [facility] May 08, 2024 02:30 PM AMBULATORY - MEDICINE [facility] May 08, 2024 02:31 PM AMBULATORY - [place]ONE [place] [facility] May 16, 2024 10:00 AM AMBULATORY - SURGERY [facility] May 16, 2024 10:01 AM AMBUL[place]ORY [place] [facility] May 19, 2024 08:00 AM AMBULATORY - NONE [place] [facility] May 26, 2024 10:00 AM AMBULATORY - NONE [place] [facility] Jun 07, 2024 01:00 PM AMBUL[place]ORY [place] [facility] Jun 07, 2024 03:55 PM [place] [facility] Jun 13, 2024 10:00 AM AMBULATORY - SURGERY [facility] Jun 13, 2024 10:01 AM AMBULATORY - SURGERY [place] [...] of theEncounter. The data comes from all [place] treatment facilities. Test Date/Time Test Type Test Details Facility Name Apr 06, 2024 04:04 PM Consult Order COMMUNITY CARE-ALLERGY Cons Sales Enablement Lead's Choice [facility] May 03, 2024 12:00 AM Laboratory - Chemi stry Order URORISK DIAGNOSTIC PROFILE(Q) 24H RENAL STONE KIT 24H URINE SP [facility] Lab Results: +/- 30 [...] Type: PLASMA Comment: , Tests performed on [employer] Moses [id number] (405) Ordering Provider: DAVID FAM Report Released Date/Time: Nov 15, 2023 11:30 AM Reporting [facility] [address] [place] [facility] [place] [place] [address] Performing Lab: [facility] [address] [facility] [address] UREA NITROGEN 10 mg/dL -May 04, 2024 10:32 AM [facility] CREATININE WITH eGFR PANEL Specimen Type: PLASMA Comment: , Tests performed on [employer] Moses SN:[id number] (405) Ordering Provider: DAVID FAM Report Released Date/Time: Nov 15, 2023 11:30 AM Reporting [facility] [address] [place] [facility] [place] [address] [facility]: [facility] [address] [facility] [address] CREATININE 0.91 mg/dL 0.50-1.50 eGFR(CKD-EPI 2020) 86 Social History: Smoking Status (Most current) and Tobacco Use (All prior to encounter date) This section includes the most current, and the historical, smoking and tobacco- related health factors from the [place] facility where the Encounter took place. Current Smoking Status This section includes the most current smoking, or tobacco-related health factor, from the [place] facility where the Encounter took place. Date/Time Current Smoking Status Comment Facil ity Feb 21, 2024 10:15 AM VA-TOBACCO USER EVERY DAY [facility] Tobacco Use History This section includes a history of the smoking, or tobacco-related health factors, that were collected on or before the date of the Encounter. The data comes from the [place] facility where the Encounter took place. Date/Time Smoking Status/Tobacco Use Comment F acility Feb 21, 2024 10:15 AM VA-TOBACCO USE ADVICE [facility] Feb 21, 2024 10:15 AM VA-TOBACCO USE INSURANCE DEFENSE [place] NO [facility] Feb 21, 2024 [...] ALL of a patient's completed or amended [place] Advance and Rescinded Directives. The entries below indicate that a directive exists for the patient, but an actual copy is not included with this document. The data comes from all [place] facilities. Date Advance Directives Provider Source Nov 18, 2017 ADVANCE DIRECTIVE FERNANDEZRADHA [facility] Jul 08, 2017 ADVANCE [...] the Encounter. The data comes from all [place] treatment facilities. Date/Time Radiology Report Provider Source May 04, 2024 12:30 PM CTA ABDOMEN AND PE LVIS: GALINA LOYD [id number] -1945 M Exm Date: MAY 04, 2024@12:30 Req Phys: VIMAL FAM Pat Loc: [facility] VASCULAR 15 M3RH (Req'g Lo Img Loc: CT SCAN (OOS) Service: Unknown [facility] [place] [address] (Case [id number] COMPLETE) CTA ABDOMEN AND PELVIS (CT Detailed) CPT:48706 Contrast Media : Non-ionic Iodinated Reason for [...] 05, 2024 Date Verified: MAY 05, 2024 Signal Intelligence/Electronic Warfare E-Sig:/ES/NÉSTOR PASCUAL Report: CTA ABDOMEN AND PELVIS [...] REQUIRED Primary Interpreting Staff: NÉSTOR PASCUAL, RADIOLOGIST (Signal Intelligence/Electronic Warfare) /NÉSTOR CONNER [facility] Encounter Notes: All associated encounter [...] ANCEF INJECTION /es/ Laine Lua DNP, GLENN, RN-BC [facility] [address] Clinical Locomotive Driver Signed: 04/07/2024 08:17 Receipt Acknowledged By: 04/07/2024 08:27 /es/ KYRA VELASQUEZ M.D [facility] MEDIC[facility], [facility]
--- OUTSIDE RECORDS SUMMARY | 2024-07-07 22:23 | XMS_ITS | Encounter Summary ---
Author Name [facility] [place] Organization [place] Address [address] [place] [address] Care Team Providers Care Faith Doctor Name Role Phone KYRA VELASQUEZ Primary Care [...] Ervin [facility] (WNR) MEDICARE ADVANTAGE [facility](W NR) * Aug 23, 2023 [id number] [phone] ANNALISA LOYD ITE PATIENT [facility] (WNR) MEDICARE ADVANTAGE [facility] (WNR) Aug 23, 2020 [id number] [phone] ANNALISA LOYD ITE PATIENT [facility] (WNR) MEDICARE ADVANTAGE [facility](W NR) Aug 23, 2012 [id number] ANNALISA LOYD ITE PATIENT Selected Encounter [...] activities for the patient from all [place] [facility]. This section includes future appointments and future [...] [place] [facility] Jun 07, 2024 01:00 PM AMBULATORY [place] [facility] Jun 07, 2024 03:55 PM [place]ORY [place] [facility] Jun 13, 2024 10:00 AM AMBULATORY - SURGERY [facility] Jun 13, 2024 10:01 AM AMBULATORY - [...] 04:04 PM Consult Order COMMUNITY CARE-ALLERGY Cons Machine Set Up Operator's Choice [facility] May 03, 2024 12:00 AM Laboratory - Chemi stry Order URORISK DIAGNOSTIC PROFILE(Q) 24H RENAL STONE KIT 24H URINE SP [facility] Lab [...] PLASMA Comment: , Tests performed on [employer] Moses [id number] (405) Ordering Provider: DAVID FAM Report Released Date/Time: Nov 15, 2023 11:30 AM Reporting [facility] [address] [place] [facility] [place] [place] [address] Performing Lab: [facility] [address] [facility] [address] UREA NITROGEN 10 mg/dL 03-16May 04, 2024 10:32 AM [facility] CREATININE WITH eGFR PANEL Specimen Type: PLASMA Comment: , Tests performed on [employer] Moses SN:[id number] (405) Ordering Provider: DAVID FAM Report Released Date/Time: Nov 15, 2023 11:30 AM Reporting Lab: [facility] [address] [place] [facility] [place] [place] [address] Performing Lab: [facility] [address] [place] [facility] [place] [address] CREATININE 0.91 mg/dL 0.50-1.50 eGFR(CKD-EPI 2020) 86 [...] Feb 21, 2024 10:15 AM VA-TOBACCO USE GERIATRIC ASSISTANT NO [facility] Feb 21, 2024 10:15 AM VA-TOBACCO USE MED NO [facility] Feb 21, 2024 10:15 AM VA-TOBACCO USE WI 30 MIN OF WAKEUP [facility] Feb 21, 2024 10:15 AM VA-TOBACCO USER EVERY DAY [facility] Jul 17, 2021 02:27 PM CURRENT SMOKER [facility] Jul 01, 2021 08:55 PM VA-VAAES TOBACCO U SE CURRENT NRT DECLINE [facility] Jul 01, 2021 02:41 PM CURRENT SMOKER REINIER Bhatai [facility] Dec 08, 2020 [...] Source Nov 18, 2017 ADVANCE DIRECTIVE REBECCARADHA [facility] Jul 08, 2017 ADVANCE DIRECTIVE DISCUSSION CRYSTALPURNIMA Jannette [facility] Radiology [...] ABDOMEN AND PE LVIS: EVELYN LOYDE CARISA [id number] -1945 M Exm Date: MAY 04, 2024@12:30 Req Phys: VIMAL FAM Pat Loc: [facility] 15 M3RH (Req'g Lo Img Loc: CT SCAN (OOS) Service: [place] [facility] [address] (Case [id number] COMPLETE) CTA ABDOMEN AND PELVIS (CT Detailed) CPT:70369 Contrast Media : Non-ionic Iodinated Reason for [...] 05, 2024 Date Verified: MAY 05, 2024 Stock Repairer E-Sig:/ES/NÉSTOR PASCUAL Report: CTA ABDOMEN AND [...] REQUIRED Primary Interpreting Staff: NÉSTOR PASCUAL, RADIOLOGIST (Stock Repairer) /NÉSTOR CONNER T [facility] [...] Patient Name: GALINA LOYD Patient Primary Address: [address] [place] [address] Patient Primary Phone: [phone] Patient : 1945 Patient Age: 78 Caller/Recipient Relation to Patient: Other If Other Describe Relation to Patient: Spouse Caller Name: Darrel Emergency Contact: DARREL LOYD Triage Summary Conducted triage/discussed symptoms Pain Score: 0 (No Pain) Utilized the Triage Tool: Yes Chief Complaint: Vomiting System WHEN: Self-care Nurse's Recommendation / WHEN: Within 3 Days System WHERE: Home Nurse's Recommendation / WHERE: Clinic/[facility] Patient Disposition Patient/Caregiver agrees to plan of care: Yes Patient WHERE: Clinic/[facility] Patient WHEN: Within 3 days Nursing Plan and Disposition Other course(s) of action Generated msg to PACT/Provider Provided guidance for worsening symptoms: *Caller/Patient* advised to call facilities [place] Clinical Contact [facility] or seek immediate medical [...] Triage Sat, 08 Apr 2024 14:23:40 +[address] [facility] Demographics 78 y/o Male Results CC: Vomiting [...] use IMPORTANT: This note was created by [facility] Clinical Contact Center staff. Please do not alert the staff member by adding them as a signer for future communications. Alerts are not monitored by this user. /vivian/ MICKI LOPEZ 2 [facility] mdm developer Signed: 04/08/2024 10:54 Receipt Acknowledged By: 04/10/2024 13:53 /vivian/ KYRA VELASQUEZ M.D INTERNAL MEDICINE, [facility] 04/10/2024 14:03 /es/ JENIFER SHANE LPN for [facility] PETTIGLIO 04/10/2024 ADDENDUM STATUS: COMPLETED called and spoke with pt's spouse Kinjaswinder. she states n/v improved when he started taking abx on full stomach. she is awaiting wound clinic call /vivian/ KYRA VELASQUEZ M.D INTERNAL MEDICINE, [facility] Signed: 04/10/2024 13:54 [facility]
--- OUTSIDE RECORDS SUMMARY | 2024-07-07 22:23 | XMS_ITS | Encounter Summary ---
Author Name [facility] [place] [facility] [place] [facility] [place] [facility] [place] Address [address] [place] [address] Care Team Providers Care Scagliola Mechanic Name Role Phone RONKYRA Primary Care Provider [...] SYSTEM [facility] (WNR) MEDICARE ADVANTAGE MCR(W NR) * Aug 23, 2023 [id number] ANNALISA LOYD ITE PATIENT [facility] (WNR) MEDICARE ADVANTAGE [facility] (WNR) Aug 23, 2020 [id number] [phone] ANNALISA LOYD ITE PATIENT [facility] (WNR) MEDICARE [facility](W NR) Aug 23, 2012 [id number] [phone] ANNALISA LOYD PATIENT Selected Encounter This section includes the information on record at [place] for the Encounter. Date/Time Encounter Type Encounter Description Reason Provider Source Apr 06, 2024 01:00 PM OFFICE O/P EST MOD 30 MIN PRIMARY CARE/MEDICINE ICD-10-CM L89.890 Pressure ulcer of other site, unstageable KYRA VELASQUEZ Jannette Encounter Template Text not used by [place] Assessments - Encounter Diagnoses This section includes the primary and secondary diagnoses documented for the Encounter. Date/Time Primary/Secondary Diagnosis Diagnosis Name Provider Source Apr 06, 2024 02:23 PM PRIMARY Pressure ulcer of other site, unstageable KYRA VELASQUEZ [facility] Plan of Treatment: Future Appointments (+ 6 months) and Future Tests (+/- 45 days) The Plan of Treatment section includes future care activities for the patient from [facility] [place] [facility]. This section includes future [...] - MEDICINE [place] [facility] May 26, 2024 10:00 AM AMBULATORY - NONE [place]ITE [place] JOELLE T [facility] Jun 07, 2024 01:00 PM AMBULATORY - SURGERY SON[facility] Jun 07, 2024 03:55 PM AMBULATORY - MEDICINE REINIER GAYLE [facility] Jun 13, 2024 10:00 AM [facility]BULATORY [facility] Jun 13, 2024 10:01 AM AMBULATORY - SURGERY SONYA [facility] Active, Pending, and [...] 04:04 PM Consult Order COMMUNITY CARE-ALLERGY Cons Diamond Sawer's Choice [facility] May 03, 2024 12:00 AM Laboratory - Chemi stry Order URORISK DIAGNOSTIC PROFILE(Q) 24H RENAL STONE KIT 24H URINE SP [facility] Lab Results: +/- [...] Comment May 04, 2024 10:32 AM [facility] UREA NITROGEN Specimen Type: PLASMA Comment: , Tests performed on [employer] [id number] ([id number]) Ordering Provider: DAVID FAM Report Released Date/Time: Nov 15, 2023 11:30 AM Reporting Lab: [facility] [address] [place] [address] Performing Lab: [facility] [address] [address] UREA NITROGEN 10 mg/dL 03-16May 04, 2024 10:32 AM [facility] CREATININE WITH eGFR PANEL Specimen Type: PLASMA Comment: , Tests performed on [employer] [id number] ([id number]) Ordering Provider: DAVID FAM Report Released Date/Time: Nov 15, 2023 11:30 AM Reporting Lab: [facility] [address] [address] Performing Lab: [facility] [address] [address] CREATININE 0.91 mg/dL 0.50-1.50 eGFR(CKD-EPI 2020) 86 [...] May 14, 2022 09:30 AM VA-TOBACCO USE WATCH PARTS INSPECTOR NO [facility] May 14, 2022 [...] December 28, 2018 11:23 AM VA-TOBACCO USE WATCH PARTS INSPECTOR NO [facility] December 28, 2018 [...] ALL of a patient's completed or amended IN Advance and Rescinded Directives. The entries below [...] CTA ABDOMEN AND PE LVIS: GALINA LOYD [id number] -[id number] M Exm Date: MAY 04, 2024@12:30 Req Phys: VIMAL FAM Pat Loc: [facility]ASCULAR 15 M3RH (Req'g Lo Img Loc: CT SCAN (OOS) Service: [place] [address] (Case [id number] COMPLETE) CTA ABDOMEN AND PELVIS (CT Detailed) CPT:87826 Contrast Media : Non-ionic Iodinated Reason for [...] 2024 Date Verified: MAY 05, 2024 Clinical Trainer E-Sig:/ES/NÉSTOR PASCUAL Report: CTA ABDOMEN AND PELVIS [...] Primary Interpreting Staff: NÉSTOR PASCUAL, RADIOLOGIST (Clinical Trainer) /NÉSTOR CONNER [facility] Encounter Notes: All associated encounter notes This section contains the clinical notes associated to the Encounter. Date/Time Encounter Note(s) Provider Source Jun 19, 2024 08:53 AM CLINICAL WARNING: LOCAL TITLE: Physician Certification for Hospice STANDARD TITLE: CLINICAL WARNING DATE OF NOTE: JUN 19, 2024@08:53 ENTRY DATE: JUN 19, 2024@08:53:57 AUTHOR: KYRA VELASQUEZ COSIGNER: URGENCY: STATUS: COMPLETED Physician's Certification of Terminal Illness for Hospice Benefit Certification Statement for first 90-day period: I certify that Mr. Galina Loyd is terminally ill with a life expectancy of six months or less if the terminal illness runs its normal course. Effective date of certification: May Terminal Diagnosis: failure to thrive Brief narrative statement: 78 y/o with multiple medical problems including recent left hip fracture 03/15 s/p pinning, cva 2019, subdural hemorrhage, history of seizures, nephrolithiasis, h/o bl ureteral stents s/p removal, htn, tobacco use, follicular lymphoma, AAA, thoracic aortic aneurysm, etoh dependence in remission, pressure ulcers noted on the left shoulder and sacrum Attestation: I confirm that this narrative is based on my review of the patient's medical record and/or examination. /vivian/ KYRA VELASQUEZ M.D INTERNAL MEDICINE, [facility] Signed: 06/19/2024 08:55 KYRA VELASQUEZ [facility] Jun 12, 2024 10:02 AM NONVA MEDICATION M GT NOTE: LOCAL TITLE: Prescription Slip for NonVA Pharmacy STANDARD TITLE: NONVA MEDICATION MGT NOTE DATE OF NOTE: JUN 12, 2024@10:02 ENTRY DATE: JUN 12, 2024@10:02:36 AUTHOR: KYRA VELASQUEZ EXP COSIGNER: URGENCY: STATUS: COMPLETED Prescription Slip for NonVA Pharmacy Has ADDENDA [facility] [address] [place] [address] Patient: Date: JUN 12, 2024 GALINA LOYD JR [address], [place] [address] :Sep Medication: Nitrofurantoin 100 mg Quantity: 10 Sig: Take one tablet twice daily for five days Refills: 0 Substitution Permitted NPI # [id number] DELFINO # May ___ /es/ Date KYRA VELASQUEZ M.D INTERNAL MEDICINE, [facility] [facility] 06/12/2024 ADDENDUM STATUS: COMPLETED contact with of rosey pablo faxed to [facility] as requested. /es/ OJ GIL RN Signed: 06/12/2024 12:23 KYRA VELASQUEZ [facility] Apr 07, 2024 08:18 AM NONVA NOTE: LOCAL TITLE: COMMUNITY CARE-CARE COORDINATION PLAN NOTE STANDARD TITLE: NONVA NOTE DATE OF NOTE: APR 07, 2024@08:18 ENTRY DATE: APR 07, 2024@08:18:28 AUTHOR: LAINE LUA EXP COSIGNER: URGENCY: STATUS: COMPLETED COMMUNITY CARE-CARE COORDINATION PLAN NOTE Has ADDENDA Community Care Consult: Community Care-Allergy Consult No: [id number] [facility] Referral #: [id number] Chief Complaint, as noted on entered consult: anaphylactic reaction causing severe hypotension 03/15 hospitalization nv[facility] to ancef/rocuronium infusion.rec outpt allergy eval Provider Name: [facility] Community Care Office Contact: Care Coordination Point of Contact: Admitted? no Level of Care Coordination Complex Care Coordination was determined from: Chart Review and consult tool box calculations Plan: 1. Support initial pending consult processing by Ruth 2. Advanced MSA to contact confirming provider [...] first appointment date. /vivian/ Laine Lua DNP, GLENN, RN-BC [facility] Clinical Account Services Manager Signed: 04/07/2024 08:23 Receipt Acknowledged By: 04/14/2024 15:18 /vivian/ MICHAEL MANUEL MSA 04/07/2024 ADDENDUM STATUS: COMPLETED Added the following to alelrgy list: This patient has had the following reactions signed-off on Apr 07, 2024@08:08:58. ROCURONIUM BROMIDE This patient has had the following reactions signed-off on Apr 07, 2024@08:07:29. ANCEF INJECTION /vivian/ Laine Lua DNP, MSA, RN-[facility] Clinical Account Services Manager Signed: 04/07/2024 08:24 LAINE LUA [facility] Apr 06, 2024 02:19 PM NONVA MEDICATION M GT NOTE: LOCAL TITLE: Prescription Slip for NonVA Pharmacy STANDARD TITLE: NONVA MEDICATION MGT NOTE DATE OF NOTE: APR 06, 2024@14:19 ENTRY DATE: APR 06, 2024@14:19:20 AUTHOR: KYRA VELASQUEZ COSIGNER: URGENCY: STATUS: COMPLETED Prescription Slip for NonVA Pharmacy Has ADDENDA [facility] [address] [address] Patient: Date: APR 06, 2024 GALINA LOYD JR [facility], [place] [address] :Sep Medication: Levofloxacin 500 mg Quantity: 7 Sig: Take one tablet once daily Refills: 0 Substitution Permitted Medication: Doxycycline 100 mg Quantity: 20 Sig: Take one tablet twice daily Refills: 0 Substitution Permitted NPI #[id number] DELFINO # Mar ___ /es/ Date KYRA VELASQUEZ M.D INTERNAL MEDICINE, [facility] 04/06/2024 ADDENDUM STATUS: COMPLETED please fax to theron juarez /es/ KYRA VELASQUEZ M.D INTERNAL MEDICINE, [facility] Signed: 04/06/2024 14:20 KYRA VELASQUEZ [facility] Apr 06, 2024 01:08 PM PRIMARY CARE JOSÉ MIGUEL Luna EVALUATION NOTE: LOCAL TITLE: Preventive Health Annual Review STANDARD TITLE: PRIMARY CARE ANNUAL EVALUATION NOTE DATE OF NOTE: APR 06, 2024@13:08 ENTRY DATE: APR 06, 2024@13:09:02 AUTHOR: MARILYNN ELIAS COSIGNER: URGENCY: STATUS: COMPLETED Suicide Screen: C-SSRS Screening [place]-Suicide Severity Rating Scale (C-SSRS Screener) 1. Over [...] hopeless Not at all /vivian/ MARILYNN ELIAS Bet Taker Signed: 04/06/2024 13:12 MARILYNN ELIAS [facility] Apr 06, 2024 12:48 PM PRIMARY CARE NOTE: LOCAL TITLE: Primary Care Clinic Note STANDARD TITLE: PRIMARY CARE NOTE DATE OF NOTE: APR 06, 2024@12:48 ENTRY DATE: APR 06, 2024@12:49 AUTHOR: KYRA VELASQUEZIGNER: URGENCY: STATUS: COMPLETED Primary Care Clinic Note Has ADDENDA PRIMARY CARE TELEMEDICINE VISIT e-911: Call [phone] to speak with an agent who can put you in touch with a deflector operator at the Patient's location. You must have the physical location (address) where the Patient is currently located. \ / /\ [facility] \/ /--\ [facility] VISIT DETAILS & SECURITY: : Contact type .............. : [ ] VVC : [X] CVT : [ ] Telephone : Consent obtained .......... : [X] Consent obtained for visit type : Current location .......... : [X] [facility] : [ ] [place]'s residence : : [X] Location safe/private : Spoke with ................ : [X] Patient : [ ] Other : Patient Identifiers ....... : [X] Social Security & : Additional participants ... : [] No other participants in the room : [x ] Spouse : [ ] Son/Daughter : Emergency contact ......... : [X] Confirmed as below ISABELLE LOYDMAEVE N [address] [place], [place] [id number] [address] [place], [place] [address] Chief complaint: Pt is a 78 year [...] 02/12 dr alexander. He was admitted to [facility] in february and treated for left hip fracture by dr. nolasco with pinning. he had an anaphylactic reaction to rocuronium and ancef infusion prior to procedure causing severe hypotension which led to icu stay. he was discharged to [facility] acute rehab. per she noticed pressure ulcer on 03/29/24 after leaving rehab. it started as dime size on his shoulder and grew. she is unsure regarding timing of the sacral wound. He has had no fevers or chills. He has home nurse and pt with [facility] who is dressing the wounds. specialty care cc oncology - lymphoma, prostate cancer every six months - [facility]. previously followed at 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 Hypertension ([facility] [id number]) T83.038A Family history of prostate cancer ([facility] [id number]) Z80.3 Family history of malignant neoplasm of breast ([facility] [id number]) Z77.098 Injury due to chemical exposure ([facility] [id number]) Service Connection: DS - Disabilities Eligibility: SERVICE [...] completed with the assistance of telehealth clinical industrial ecology technician: Roxy Bazan today PHYSICAL EXAMINATION GENERAL: [...] cleaned and debrided today by clinic rn -has [facility] visiting home nurse for current home dressing [...] on 12/16/23 s/p bilateral stent removal -follows [facility] urology post stroke epilepsy r mca infarct follows. neurology dr. samano previously dr. ceron on lacosamide left hip fx s/p pinning 03/15 -following dr. nolasco orthopedics anaphylactic reaction noted during 03/15 hospitalization to ancef/rocuronium infusion -cc allergy placed per hospital d/c recs h/o prostate cancer s/p xrt completed 05/12. declined adt, nonhodgkin lymphoma -following [facility] aortic aneurysm/thoracic aneurysm -has upcoming ia vascular surgery evaluation weight loss in setting of poor nutrition status -seeing ia nutrition IM - Immunizations ADMINISTERED Immunization Series Date Facility Reaction Info COVID-19 (KELLE), VECTOR-NR, R* 2 07/10/2021 [facility]* <C> COVID-19 (KELLE), VECTOR-NR, R* 1 11/29/2020 [facility]* <C> COVID-19 (MODERNA), MRNA, LNP-S,* 3 03/19/2022 [facility]* <C> INFLUENZA, ADJUVANTED, QUADRIVAL* 06/16/2022 [facility]* INFLUENZA, ADJUVANTED, QUADRIVAL* 06/20/2021 [facility]* INFLUENZA, HIGH-DOSE, QUADRIVALE* 06/17/2023 [facility]* INFLUENZA, SPLIT VIRUS, QUADRIVA* 06/18/2020 [facility]* INFLUENZA, SPLIT VIRUS, QUADRIVA* 06/07/2019 [facility]* <C> INFLUENZA, SPLIT VIRUS, QUADRIVA* 09/06/2018 [facility]* <C> INFLUENZA, SPLIT VIRUS, TRIVALEN* [facility] <C> INFLUENZA, UNSPECIFIED FORMULATI* 06/02/2016 [facility]* <C> INFLUENZA, UNSPECIFIED FORMULATI* 08/12/2015 [facility]* <C> INFLUENZA, UNSPECIFIED FORMULATI* No Site <C> PNEUMOCOCCAL CONJUGATE PCV 13 08/12/2015 [facility]* PNEUMOCOCCAL POLYSACCHARIDE PPV23 08/10/2016 No Site TD(ADULT) UNSPECIFIED FORMULATION No Site TDAP 02/20/2014 No Site <C> ZOSTER LIVE No Site ZOSTER RECOMBINANT 2 03/02/2019 [facility]* ZOSTER RECOMBINANT 1 11/18/2017 [facility]* CONTRAINDICATED No data available REFUSED ======= No data available <C> See the Detailed Immunizations Health Summary Component[DIM] for Comments * Value is truncated; see the Detailed Immunizations Health Summary Component[DIM] for complete text Medication Reconciliation: Perform Medication Reconciliation JLV Link Data on this list may not be complete. Please check JLV. Allergies/ADRs (Tool #5) FACILITY ALLERGY/ADR -------- [facility] IOHEXOL [facility] 350 INJECTION Med Recon NoGloary (Tool #1) INCLUDED IN THIS LIST: Alphabetical list of active outpatient prescriptions dispensed from this VA (local) and dispensed from another VA or DoD facility (remote) as well as inpatient orders (local pending and active), local clinic medications, locally documented non-VA medications, and local prescriptions that have or been discontinued in the past 90 days. Non-VA Meds Last Documented On: May 22, 2016 NOTE The display of VA prescriptions dispensed from another VA or DoD facility (remote) is limited to active outpatient prescription entries matched to National Drug File at the originating site and may not include some items such as investigational drugs, compounds, etc. NOT INCLUDED IN THIS LIST: Medications self-entered by the patient into personal health records (i.e. [employer]) are NOT included in this list. Non-VA medications documented outside this [place], remote inpatient orders (regardless of status) and remote clinic medications are NOT included in this list. The patient and provider must always discuss medications the patient is taking, regardless of where the medication was dispensed or obtained. OUTPT ATORVASTATIN CALCIUM 40MG TAB (Status = Discontinued) TAKE TWO TABLET(S) BY MOUTH EVERY EVENING TO LOWER CHOLESTEROL Rx# [id number] Last Released: 12/09/23 Qty/Days Supply: 180 Rx Expiration Date: 05/10/24 Refills Remainin OUTPT ATORVASTATIN CALCIUM 40MG TAB (Status = Active/Suspended) TAKE TWO TABLET(S) BY MOUTH EVERY EVENING TO LOWER CHOLESTEROL Rx# [id number] Last Released: QtDays Supply: 180 Rx Expiration Date: 04/07/25 Refills Remainin OUTPT LACOSAMIDE 50MG TAB (Status = ) TAKE FOUR TABLETS BY MOUTH TWICE A DAY MAY TAKE AN EXTRA TWO TABLETS IF ANY UTI,FEVER, OR ANY SURGICAL PROCEDURE Rx# [id number] Last Released: 12/30/23 Qty/Days Supply: Rx Expiration Date: 01/15/24 Refills Remainin OUTPT LACOSAMIDE 50MG TAB (Status = Active) TAKE FOUR TABLETS BY MOUTH TWICE A DAY . MAY TAKE 2 EXTRA TABLETS (100MG) IF ANY UTI, FEVER OR ANY SURGICAL PROCEDURE. Rx# [id number] Last Released: 03/08/24 Qty/Days Supply: 240 Rx Expiration Date: 07/26/24 Refills Remainin OUTPT LACTOBACILLUS ACIDOPHILUS CAP (Status = Active/Suspended) TAKE ONE CAPSULE BY MOUTH ONCE DAILY FOR DIGESTIVE CARE Rx# [id number] Last Released: Qty/Days Supply: 100 Rx Expiration Date: 04/07/25 Refills Remainin OUTPT MELATONIN 3MG CAP/TAB (Status = Discontinued) TAKE ONE CAP/TAB BY MOUTH AT BEDTIME NEEDED FOR SLEEP Rx# [id number] Last Released: 12/23/23 Qty/Days Supply: 120 Rx Expiration Date: 05/10/24 Refills Remainin OUTPT MELATONIN 3MG CAP/TAB (Status = Active/Suspended) TAKE ONE CAP/TAB BY MOUTH AT BEDTIME NEEDED FOR SLEEP Rx# [id number] Last Released: Qt Supply: 120 Rx Expiration Date: 04/07/25 Refills Remainin OUTPT POTASSIUM CHLORIDE 10MEQ SA TAB (Status = Discontinued) TAKE ONE TABLET BY MOUTH EVERY MORNING WITH BREAKFAST TO SUPPLEMENT POTASSIUM Rx# [id number] Last Released: 02/15/24 Qty/Days Supply: Rx Expiration Date: 05/10/24 Refills Remainin Indication: TO SUPPLEMENT POTASSIUM OUTPT POTASSIUM CHLORIDE 10MEQ SA TAB (Status = Active/Suspended) TAKE ONE TABLET BY MOUTH EVERY MORNING WITH BREAKFAST TO SUPPLEMENT POTASSIUM Rx# [id number] Last Released: Supply: Rx Expiration Date: 04/07/25 Refills Remainin Indication: TO SUPPLEMENT POTASSIUM OUTPT TAMSULOSIN HCL 0.4MG CAP (Status = Discontinued) TAKE ONE CAPSULE BY MOUTH TWICE A DAY 30 MINUTES AFTER THE SAME MEALTIME EACH DAY FOR PROSTATE/URINARY SYMPTOMS. Rx# [id number] Last Released: 02/21/24 Qty/Days Supply: 60 Rx Expiration Date: 05/10/24 Refills Remainin OUTPT TAMSULOSIN HCL 0.4MG CAP (Status = Active/Suspended) TAKE ONE CAPSULE BY MOUTH TWICE A DAY 30 MINUTES AFTER THE SAME MEALTIME EACH DAY FOR PROSTATE/URINARY SYMPTOMS. Rx# [id number] Last Released: QtyDays Supply: 60 Rx Expiration Date: 04/07/25 Refills Remainin OUTPT ZZZLACTOBACILLUS COMBO TAB (Status = Discontinued) TAKE ONE TABLET BY MOUTH ONCE DAILY FOR GI Rx# [id number] Last Released: 12/23/23 Qty/Days Supply: 100/ Rx Expiration Date: 05/26/24 Refills Remainin Indication: FOR GI SUPPLIES OUTPT DRESS,MEPILEX BORDER FLEX 4X4IN #[id number] (Status = Discontinued) APPLY ONE DRESSING TOPICALLY EVERY THIRTY-SIX HOURS APPLY DIRECTED Rx# [id number] Last Released: 01/04/24 Qty/Days Supply: Rx Expiration Date: 12/30/24 Refills Remainin Indication: SACRAL PRESSURE SORE OUTPT DRESS,MEPILEX BORDER FLEX 4X4IN #[id number] (Status = Active) APPLY ONE DRESSING TOPICALLY EVERY THIRTY-SIX HOURS APPLY DIRECTED Rx# [id number] Last Released: 02/22/24 Qty/Days Supply: Rx Expiration Date: 02/21/25 Refills Remainin Indication: SACRAL PRESSURE SORE OUTPT DRESSING,MEPILEX BORDR 8.7X9.8IN #[id number] (Status = Discontinued) APPLY ONE DRESSING TOPICALLY DIRECTED Rx# [id number] Last Released: 08/31/23 Qty/Days Supply: Rx Expiration [...] understanding. /vivian/ KYRA VELASQUEZ M.D INTERNAL MEDICINE, [facility] Signed: 04/06/2024 16:05 04/06/2024 ADDENDUM STATUS: COMPLETED correction: pt examined with the help of orquidea [facility] RN Kyra Voss /vivian/ KYRA VELASQUEZ M.D INTERNAL MEDICINE, [facility] Signed: 04/06/2024 16:06 KYRA VELASQUEZ [facility]
--- OUTSIDE RECORDS SUMMARY | 2024-07-07 22:23 | XMS_ITS | Encounter Summary ---
Author Name [place] Organization [place] Address [address] [place] [address] Care Team Providers Care Welding Lead Burner Name Role Phone KYRA VELASQUEZ Primary Care [...] Ervin's Name Patient's Relationship to Policy Ervin [facility] (WNR) MEDICARE [facility](W NR) * Aug 23, 2023 [id number] ANNALISA LOYD ITE PATIENT [facility] MCR (WNR) MEDICARE ADVANTAGE [facility] (WNR) Aug 23, 2020 [id number] [phone] ANNALISA LOYD ITE PATIENT [facility] (WNR) MEDICARE ADVANTAGE [facility](W NR) Aug 23, 2012 [id number] [phone] ANNALISA LOYD ITJannette PATIENT Selected Encounter [...] [place] [facility] Jun 07, 2024 01:00 PM AM[place]UL[place]ORY [place] [facility] Jun 07, 2024 03:55 PM AM[place]ULATORY [place] [facility] Jun 13, 2024 10:00 AM AMBULATORY [facility] Jun 13, 2024 10:01 AM AMBULATORY [...] 04:04 PM Consult Order COMMUNITY CARE-ALLERGY Cons Power Generation Turbine Room Operator's Choice [facility] May 03, 2024 [...] Type: PLASMA Comment: , Tests performed on [employer] Moses [id number] ([id number]) Ordering Provider: DAVID FAM Report Released Date/Time: Nov 15, 2023 11:30 AM Reporting Lab: [facility] [address] [facility] [place] [address] Performing Lab: [facility] [address] [facility] [address] UREA NITROGEN 10 mg/dL 03-16May 04, 2024 10:32 AM [facility] CREATININE WITH eGFR PANEL Specimen Type: PLASMA Comment: , Tests performed on [employer] Moses [id number] (405) Ordering Provider: DAVID FAM Report Released Date/Time: Nov 15, 2023 11:30 AM Reporting Lab: [facility] [address] [facility] [place] [address] Performing Lab: [facility] [address] [facility] [place] [address] CREATININE 0.91 mg/dL 0.50-1.50 eGFR(CKD-EPI 2020) 86 [...] 30 MIN OF WAKEUP [facility] Tobacco Use History This [...] Feb 21, 2024 10:15 AM VA-TOBACCO USE MARKETING SERVICES COORDINATOR NO [facility] Feb 21, 2024 [...] 01, 2021 02:41 PM CURRENT SMOKER REINIER [facility] Dec 08, 2020 08:45 [...] CTA ABDOMEN AND PE LVIS: GALINA LOYD [id number] -1945 M Exm Date: MAY 04, 2024@12:30 Req Phys: VIMAL FAM Pat Loc: [facility] VASCULAR 15 M3RH (Req'g Lo Img Loc: CT SCAN (OOS) Service: [place] [address] (Case [id number] COMPLETE) CTA ABDOMEN AND PELVIS (CT Detailed) CPT:49513 Contrast Media : Non-ionic Iodinated Reason for [...] 2024 Date Verified: MAY 05, 2024 Sales Appointment Coordinator E-Sig:/VIVIAN/NÉSTOR PASCUAL Report: CTA ABDOMEN AND PELVIS [...] Primary Interpreting Staff: NÉSTOR PASCUAL, RADIOLOGIST (Sales Appointment Coordinator) /NÉSTOR CONNER [facility] Encounter Notes: All associated encounter notes This section contains the clinical notes associated to the Encounter. Date/Time Encounter Note(s) Provider Source Apr 08, 2024 10:07 AM ADMINISTRATIVE NOT E: LOCAL TITLE: [facility]: SCHEDULING ADMINISTRATION STANDARD TITLE: ADMINISTRATIVE NOTE DATE OF NOTE: APR 08, 2024@10:07 ENTRY DATE: APR 08, 2024@10:07:39 AUTHOR: RODOLFO SMITH EXP COSIGNER: URGENCY: STATUS: COMPLETED Verify Patient Demographics Successfully verified patient demographics Transferred to [facility] triage nurse line /vivian/ RODOLFO SMITH VISN 2 [facility] AMSA Signed: 04/08/2024 10:10 RODOLFO SMITH [facility]
--- OUTSIDE RECORDS SUMMARY | 2024-07-07 22:23 | XMS_ITS | Encounter Summary ---
Author Name Department [place] Organization Department [place] Address [address] [place] [address] Care Team Providers Care Machine Coremaker Name Role Phone KYRA VELASQUEZ Primary Care [...] Name Patient's Relationship to Policy Ervin [facility] (WNR) MEDICARE [facility](W NR) * Aug 23, 2023 [id number] [phone] ANNALISA LOYD ITE PATIENT [facility] (WNR) MEDICARE ADVANTAGE [facility] (WNR) Aug 23, 2020 [id number] [phone] ANNALISA LOYD ITE PATIENT [facility] (WNR) MEDICARE [facility](W NR) Aug 23, 2012 [id number] [phone] ANNALISA LOYD ITE PATIENT Selected Encounter [...] Nov 18, 2017 ADVANCE DIRECTIVE RADHA FERNANDEZ [facility] Jul 08, 2017 ADVANCE DIRECTIVE DISCUSSION PURNIMA ROJAS [facility]
--- OUTSIDE RECORDS SUMMARY | 2024-07-07 22:24 | XMS_ITS | Encounter Summary ---
Author Name Department [place] Address [address] [place] [address] Care Team Providers Care Health And Nutrition Specialist Name Role Phone KYRA VELASQUEZ Primary [...] Ervin's Name Patient's Relationship to Policy Ervin [facility] (WNR) MEDICARE ADVANTAGE MCR(W NR) * Aug 23, 2023 [id number] [phone] ANNALISA LOYD ITE PATIENT [facility] (WNR) MEDICARE ADVANTAGE [facility] (WNR) Aug 23, 2020 [id number] [phone] ANNALISA LOYD ITE PATIENT [facility] (WNR) MEDICARE ADVANTAGE [facility]CR(W NR) Aug 23, 2012 [id number] ANNALISA LOYD ITE PATIENT Selected Encounter [...] activities for the patient from all [place] treatment[facility] centerities. This section includes future appointments [...] [place] [facility] Jun 07, 2024 01:00 PM AMBUL[place]ORY [place] [facility] Jun 07, 2024 03:55 PM AMBUL[place]ORY [place]IC[place] [facility] Jun 13, 2024 10:00 AM AMBULATORY - SURGERY [facility] Jun 13, 2024 10:01 AM AMBUL[place]ORY [place] [facility] Jun 15, 2024 09:00 AM AMBULATORY - NONE [place] [facility] Jun 20, 2024 11:30 AM AMBULATORY - NONE [place] [facility] Active, Pending, and Scheduled Orders This section [...] 04:04 PM Consult Order COMMUNITY CARE-ALLERGY Cons Imaging Aide's Choice SONYA GAYLE [facility] May 03, 2024 12:00 AM Laboratory - Chemi stry Order URORISK DIAGNOSTIC PROFILE(Q) 24H RENAL STONE KIT 24H URINE SP [facility] Lab Results: [...] PLASMA Comment: , Tests performed on [employer] Moses SN:[id number] (405) Ordering Provider: DAVID FAM Report Released Date/Time: Nov 15, 2023 11:30 AM Reporting [facility]: [facility] [address] [place] [facility] [place] [address] Performing Lab: [facility] [address] [facility] [address] UREA NITROGEN 10 mg/dL -May 04, 2024 10:32 AM [facility] CREATININE WITH eGFR PANEL Specimen Type: PLASMA Comment: , Tests performed on [employer] Moses SN:[id number] (405) Ordering Provider: DAVID FAM Report Released Date/Time: Nov 15, 2023 11:30 AM Reporting Lab: [facility] [address] [place] [facility] [place] [address] Performing Lab: [facility] [address] [facility] [address] CREATININE 0.91 mg/dL 0.50-1.50 eGFR(CKD-EPI 2020) 86 [...] Feb 21, 2024 10:15 AM VA-TOBACCO USE WEB MERCHANT NO [facility] Feb [...] Source Nov 18, 2017 ADVANCE DIRECTIVE REBECCARADHA [facility] Jul 08, 2017 ADVANCE DIRECTIVE DISCUSSION ROJAS,PURNIMA Jannette [facility] Radiology Reports: [...] CTA ABDOMEN AND PE LVIS: GALINA LOYD [id number] -1945 M Exm Date: MAY 04, 2024@12:30 Req Phys: VIMAL FAM Pat Loc: [facility] VASCULAR 15 M3RH (Req'g Lo Img Loc: CT SCAN (OOS) Service: Unknown [facility] [place] [address] (Case [id number] COMPLETE) CTA ABDOMEN AND PELVIS (CT Detailed) CPT:81517 Contrast Media : Non-ionic Iodinated Reason for [...] 05, 2024 Date Verified: MAY 05, 2024 [employer] E-Sig:/ES/NÉSTOR PASCUAL Report: CTA ABDOMEN AND PELVIS [...] REQUIRED Primary Interpreting Staff: NÉSTOR PASCUAL, RADIOLOGIST (Forest Management Professor) /NÉSTOR CONNER [facility] Encounter Notes: [...] FUTURE APPOINTMENTS Future Appointments - Mar@10:00 LIT TH WOUND OSTOMY PAT Mar@10:01 [facility] TH WOUND MOBILITY ENGINEER Apr@14:30 LIT Apr@10:30 [facility] RAD LYNN PREP [facility] Apr@11:00 [facility] VASCULAR LAB [facility] Apr@12:[address] SCAN 15 [facility] Apr@13:00 [facility] VASCULAR 15 [facility] May@09:00 [facility] CARE-NEUROLOGY /vivian/ ADITI GARCIA Health Help Desk Support Signed: 04/10/2024 15:54 Receipt Acknowledged By: 04/11/2024 08:29 /vivian/ KYRA VELASQUEZ M.D INTERNAL MEDICINE, [facility] 04/10/2024 15:58 /vivian/ JENIFER SHANE LPN 04/10/2024 15:59 /vivian/ JENIFER SHANE LPN for OJ GIL 04/10/2024 ADDENDUM STATUS: COMPLETED Amount is increased and renewed /vivian/ JENIFER SHANE LPN Signed: 04/10/2024 15:58 [facility]I GARCIA [facility]
--- OUTSIDE RECORDS SUMMARY | 2024-07-07 22:24 | XMS_ITS | Encounter Summary ---
Author Name Department [place] Organization [place] Address [address] [place] [address] Care Team Providers Care Obgyn Specialist Name Role Phone KYRA VELASQUEZ Primary [...] Ervin's Name Patient's Relationship to Policy Ervin [facility] (WNR) MEDICARE ADVANTAGE MCR(W NR) * Aug 23, 2023 [id number] ANNALISA LOYD ITE PATIENT [facility] (WNR) MEDICARE ADVANTAGE [facility] (WNR) Aug 23, 2020 [id number] [phone] ANNALISA LOYD ITE PATIENT [facility] (WNR) MEDICARE [facility](W NR) Aug 23, 2012 [id number] ANNALISA LOYD ITE PATIENT Selected Encounter [...] activities for the patient from all [place] treatmentfacount includes the [facility]. This section includes future appointments [...] [facility] Jun 07, 2024 01:00 PM AMBULATORY [place] [facility] Jun 07, 2024 03:55 PM AMBULATORY [place]IC[place] [facility] Jun 13, 2024 10:00 AM AMBULATORY - SURGERY [facility] Jun 13, 2024 10:01 AM AMBUL[place]ORY [place] [facility] Jun 15, 2024 09:00 AM AMBULATORY - NONE [place] [facility] Jun 20, 2024 11:30 AM AMBULATORY - NONE [place] [facility] Jun 21, 2024 12:30 PM AMBULATORY - [place]GERY [place] [facility] Jul 11, 2024 10:00 AM AMBULATORY - SURGERY [facility] Jeimy [facility] Active, Pending, and Scheduled [...] 04:04 PM Consult Order COMMUNITY CARE-ALLERGY Cons Managing Member's Choice [facility] May 03, 2024 12:00 AM Laboratory - Chemi stry Order URORISK DIAGNOSTIC PROFILE(Q) 24H RENAL STONE KIT 24H URINE SP [facility] Lab Results: +/- 30 [...] Type: PLASMA Comment: , Tests performed on [employer] Moses SN:[id number] (405) Ordering Provider: DAVID FAM Report Released Date/Time: Nov 15, 2023 11:30 AM Reporting Lab: [facility] [address] [place] [facility] [place] [address] Performing Lab: [facility] [address] [facility] [address] UREA NITROGEN 10 mg/dL -May 04, 2024 10:32 AM [facility] CREATININE WITH eGFR PANEL Specimen Type: PLASMA Comment: , Tests performed on [employer] Moses SN:[id number] (405) Ordering Provider: DAVID FAM Report Released Date/Time: Nov 15, 2023 11:30 AM Reporting Lab: [facility] [address] [place] [facility] [place] [address] Performing Lab: [facility] [address] [facility] [address] CREATININE 0.91 mg/dL 0.50-1.50 eGFR(CKD-EPI 2020) 86 [...] 30 MIN OF WAKEUP [facility] Tobacco Use History This [...] Feb 21, 2024 10:15 AM VA-TOBACCO USE HOIST MECHANIC NO [facility] Feb 21, 2024 10:15 AM VA-TOBACCO USE MED NO [facility] Feb 21, 2024 10:15 AM VA-TOBACCO USE WI 30 MIN OF WAKEUP [facility] Feb 21, 2024 10:15 AM VA-TOBACCO USER EVERY DAY [facility] Jul 17, 2021 02:27 PM CURRENT SMOKER [facility] Jul 01, 2021 08:55 PM VA-VAAES TOBACCO U SE CURRENT NRT DECLINE [facility] Jul 01, 2021 02:41 PM CURRENT SMOKER REINIER [facility] Dec 08, 2020 [...] Source Nov 18, 2017 ADVANCE DIRECTIVE REBECCARADHA [facility] Jul 08, 2017 ADVANCE [...] CTA ABDOMEN AND PE LVIS: GALINA LOYD [id number] -1945 M Exm Date: MAY 04, 2024@12:30 Req Phys: VIMAL FAM Pat Loc: [facility] VASCULAR 15 M3RH (Req'g Lo Img Loc: CT SCAN (OOS) Service: [place] [address] (Case [id number] COMPLETE) CTA ABDOMEN AND PELVIS (CT Detailed) CPT:53874 Contrast Media : Non-ionic Iodinated Reason for [...] 05, 2024 Date Verified: MAY 05, 2024 High School History Teacher E-Sig:/ES/NÉSTOR PASCUAL Report: CTA ABDOMEN AND [...] REQUIRED Primary Interpreting Staff: NÉSTOR PASCUAL, RADIOLOGIST (High School History Teacher) /NÉSTOR CONNER [facility] Encounter [...] Title: COMMUNITY CARE-REQUEST FOR SERVICE NOTE Origin: NON-ND [facility] DIAGNOSIS: CLOSED FEMORAL NECK ,fx LEFT HIP Specialty: ORTHOPEDICS SCHEDULED FOR FU ON 04/21/2024. SD Available in [employer] [facility]. Request review and placement for cc Orthopedics SCANNED DOCUMENT SIGNATURE NOT REQUIRED Electronically Filed: 04/20/2024 by: ZOË ANDERSON Registered Nurse Receipt Acknowledged By: 04/20/2024 12:20 /es/ KYRA VELASQUEZ M.D INTERNAL MEDICINE, [facility] ZOË ANDERSON [facility]
--- OUTSIDE RECORDS SUMMARY | 2024-07-07 22:24 | XMS_ITS ---
Author Name Department [place] Address [address] [place] [address] Care Team Providers Care Historical Archeologist Name Role Phone KYRA VELASQUEZ Primary Care [...] [facility] (WNR) MEDICARE [facility](W NR) * Aug 23, 2023 [id number] [phone] ANNALISA LOYD ITE PATIENT [facility] MCR (WNR) MEDICARE ADVANTAGE [facility] (WNR) Aug 23, 2020 [id number] [phone] ANNALISA LOYD ITE PATIENT [facility] (WNR) MEDICARE ADVANTAGE [facility](W NR) Aug 23, 2012 [id number] ANNALISA LOYD ITJannette PATIENT Selected Encounter [...] activities for the patient from all [place] treatmentfacilities. This section includes future appointments and [...] AM AMBULATORY - SURGERY [facility] May 16, 2024 10:01 AM AMBULATORY [...] AM AMBULATORY - SURGERY [facility] Jun 13, 2024 10:01 AM AMBUL[place]ORY [place] [facility] Jun 15, 2024 09:00 AM AMBULATORY - NONE [place] [facility] Jun 20, 2024 11:30 AM AMBULATORY - NONE [place] [facility] Jun 21, 2024 12:30 PM AMBULATORY - SURGERY [facility] Jul 11, 2024 10:00 AM AMBULATORY - SURGERY [facility] Active, Pending, and Scheduled Orders This [...] PM Consult Order COMMUNITY CARE-ALLERGY Cons Senior Product Integrity Engineer's Choice [facility] May 03, 2024 12:00 AM Laboratory - Chemi stry Order URORISK DIAGNOSTIC PROFILE(Q) 24H RENAL STONE KIT 24H URINE SP [facility] Lab Results: +/- 30 days [...] Type: PLASMA Comment: , Tests performed on [employer] Moses SN:[id number] (405) Ordering Provider: DAVID FAM Report Released Date/Time: Nov 15, 2023 11:30 AM Reporting Lab: [facility] [address] [place] [facility] [address] Performing Lab: [facility] [address] [facility] [address] UREA NITROGEN 10 mg/dL 03-16May 04, 2024 10:32 AM [facility] CREATININE WITH eGFR PANEL Specimen Type: PLASMA Comment: , Tests performed on [employer] Moses SN:[id number] (405) Ordering Provider: DAVID FAM Report Released Date/Time: Nov 15, 2023 11:30 AM Reporting Lab: [facility] [address] [place] [facility] [place] [place] [address] Performing Lab: [facility] [address] [place] [facility] [place] [address] CREATININE 0.91 mg/dL 0.50-1.50 eGFR(CKD-EPI 2020) 86 [...] AM VA-TOBACCO USER EVERY DAY [facility] Tobacco Use History This section [...] Feb 21, 2024 10:15 AM VA-TOBACCO USE QUALITY CONTROL REPRESENTATIVE NO [facility] Feb 21, 2024 10:15 AM VA-TOBACCO USE MED NO [facility] Feb 21, 2024 10:15 AM VA-TOBACCO USE WI 30 MIN OF WAKEUP [facility] Feb 21, 2024 10:15 AM VA-TOBACCO USER EVERY DAY [facility] Jul 17, 2021 02:27 PM CURRENT SMOKER REINIER Bhatia [facility] Jul 01, 2021 [...] CTA ABDOMEN AND PE LVIS: GALINA LOYD [id number] -1945 M Exm Date: MAY 04, 2024@12:30 Req Phys: VIMAL FAM Pat Loc: [facility] VASCULAR 15 M3RH (Req'g Lo Img Loc: CT SCAN (OOS) Service: [place] [address] (Case [id number] COMPLETE) CTA ABDOMEN AND PELVIS (CT Detailed) CPT:76135 Contrast Media : Non-ionic Iodinated Reason for [...] 05, 2024 Date Verified: MAY 05, 2024 Photographs Curator E-Sig:/VIVIAN/NÉSTOR PASCUAL Report: CTA ABDOMEN AND PELVIS [...] REQUIRED Primary Interpreting Staff: NÉSTOR PASCUAL, RADIOLOGIST (Photographs Curator) /NÉSTOR CONNER [facility] Encounter Notes: All [...] Patient Name: GALINA LOYD Patient Primary Phone: [phone] Patient Primary [address]: [address] [place] [id number] Patient : 1945 Patient Age: 78 Call Back Number: [phone] Caller/Recipient Relation to Patient: Other If Other [...] you. IMPORTANT: This note was created by [facility] Clinical Contact Center staff. Please do not alert the staff member by adding them as a signer for future communications. Alerts are not monitored by this user. /es/ PAULETTE LOPEZ 1 CCC AMSA Signed: 04/19/2024 11:04 Receipt Acknowledged By: 04/20/2024 08:27 /es/ KYRA VELASQUEZ M.D INTERNAL MEDICINE, [facility] 04/19/2024 11:17 /es/ EFRAÍN VALIENTE for OJ Kirsten MCCLENDONTIGDENISE 04/19/2024 12:28 /es/ DANIELLE SOMERSN, RN, CWON 04/20/2024 ADDENDUM STATUS: COMPLETED will defer to wound clinic reevaluation in one month /vivian/ KYRA VELASQUEZ M.D INTERNAL MEDICINE, [facility] Signed: 04/20/2024 08:27 PAULETTE JUAREZ [facility]
--- OUTSIDE RECORDS SUMMARY | 2024-07-07 22:24 | XMS_ITS ---
Author Name Department [place] Organization [place] Address [address] [place] [address] Care Team Providers Care Catcher Plug Name Role Phone KYRA GUTIERREZ Primary Care [...] to Policy Ervin [facility] (WNR) MEDICARE ADVANTAGE MCR(W NR) * Aug 23, 2023 [id number] ANNALISA EDUARDO ITE PATIENT [facility] (WNR) MEDICARE ADVANTAGE [employer] (WNR) Aug 23, 2020 [id number] [phone] ANNALISA EDUARDO ITE PATIENT [facility] (WNR) MEDICARE [facility](W NR) Aug 23, 2012 [id number] ANNALISA EDUARDO ITE PATIENT Selected Encounter [...] activities for the patient from all [place] [facility]. This section includes future appointments [...] [place] [facility] May 26, 2024 10:00 AM AMBULATORY - NONE [place] [facility] Jun 07, 2024 01:00 PM AMBULATORY [place] [facility] Jun 07, 2024 03:55 PM AMBULATORY - [place]IC[place] [facility] Jun 13, 2024 10:00 AM AMBULATORY - SURGERY [facility] Jun 13, 2024 10:01 AM AMBULATORY - [place]GERY [place] [facility] Jun 15, 2024 09:00 AM AMBULATORY - NONE [place] [facility] Jun 20, 2024 11:30 AM AMBULATORY - NONE [place] [facility] Jun 21, 2024 12:30 PM AMBULATORY - [place] [facility] Jul 11, 2024 10:00 AM AMBULATORY - SURGERY [facility] Jul 11, 2024 10:01 AM AMBUL[facility]ORY - SURGERY [facility] [...] 04:04 PM Consult Order COMMUNITY CARE-ALLERGY Cons Fan Installer's Choice [facility] May 03, 2024 12:00 AM Laboratory - Chemi stry Order URORISK DIAGNOSTIC PROFILE(Q) 24H RENAL STONE KIT 24H URINE SP [facility] Lab Results: +/- [...] Type: PLASMA Comment: , Tests performed on [employer] Moses SN:[id number] (405) Ordering Provider: DAVID FAM Report Released Date/Time: Nov 15, 2023 11:30 AM Reporting Lab: [facility] [address] [place] [facility] [address] Performing Lab: [facility] [address] [facility] [address] UREA NITROGEN 10 mg/dL -May 04, 2024 10:32 AM [facility] CREATININE WITH eGFR PANEL Specimen Type: PLASMA Comment: , Tests performed on [employer] Moses SN:[id number] (405) Ordering Provider: DAVID FAM Report Released Date/Time: Nov 15, 2023 11:30 AM Reporting Lab: [facility] [address] [place] [facility] [place] [address] Performing Lab: [facility] [address] [facility] [address] CREATININE 0.91 mg/dL 0.50-1.50 eGFR(CKD-EPI 2020) 86 [...] Feb 21, 2024 10:15 AM VA-TOBACCO USE PARTS COORDINATOR NO [facility] Feb 21, 2024 10:15 AM VA-TOBACCO USE MED NO [facility] Feb 21, 2024 10:15 AM VA-TOBACCO USE WI 30 MIN OF WAKEUP [facility] Feb 21, 2024 10:15 AM VA-TOBACCO USER EVERY DAY [facility] Jul 17, 2021 02:27 PM CURRENT SMOKER [facility] Jul 01, 2021 08:55 PM [...] CTA ABDOMEN AND PE LVIS: GALINA EDUARDO [id number] -1945 M Exm Date: MAY 04, 2024@12:30 Req Phys: VIMAL FAM Pat Loc: [facility] VASCULAR 15 M3RH (Req'g Lo Img Loc: CT SCAN (OOS) Service: Unknown [facility] [place] [address] (Case [id number] COMPLETE) CTA ABDOMEN AND PELVIS (CT Detailed) CPT:47405 Contrast Media : Non-ionic Iodinated Reason for [...] 05, 2024 Date Verified: MAY 05, 2024 Roll Operator E-Sig:/ES/NÉSTOR PASCUAL Report: CTA ABDOMEN AND [...] REQUIRED Primary Interpreting Staff: NÉSTOR PASCUAL, RADIOLOGIST (Roll Operator) /NÉSTOR CONNER [facility] Encounter Notes: All associated encounter notes This section contains the clinical notes associated to the Encounter. Date/Time Encounter Note(s) Provider Source Apr 26, 2024 10:22 AM NONVA NOTE: LOCAL TITLE: NonVA Note STANDARD TITLE: NONVA NOTE DATE OF NOTE: APR 26, 2024@10:22 ENTRY DATE: APR 26, 2024@10:22:58 AUTHOR: JENIFER SHANE EXP COSIGNER: URGENCY: STATUS: COMPLETED [facility] Galina Eduardo 1945 Kyra Gutierrez [phone] Please fax a copy of the above patient's Advance Directive, Living Will, DPOA, and COLST/DNR Form to [phone]. If they do not have one in their file, please fax me back and indicate below that you having nothing on file ft patient. Thank you, This is faxed to number provided /vivian/ JENIFER SHANE LPN Signed: 04/26/2024 10:24 JENIFER SHANE [facility]
--- OUTSIDE RECORDS SUMMARY | 2024-07-07 22:24 | XMS_ITS | Encounter Summary ---
Author Name [place] Organization [place] Address [address] [place] [address] Care Team Providers Care Plate Roller Name Role Phone RONKATHARINEKYRA Primary Care Provider [...] Ervin's Name Patient's Relationship to Policy Ervin [facility] (WNR) MEDICARE [facility](W NR) * Aug 23, 2023 [id number] ANNALISA LOYD ITE PATIENT [facility] (WNR) MEDICARE ADVANTAGE [facility] (WNR) Aug 23, 2020 [id number] [phone] ANNALISA LOYD ITE PATIENT [facility] (WNR) MEDICARE [facility](W NR) Aug 23, 2012 [id number] ANNALISA LOYD ITE PATIENT Selected Encounter [...] activities for the patient from all [place] [facility]. This section includes future appointments and [...] 16, 2024 10:00 AM AMBULATORY - SURGERY [facility] May 16, 2024 10:01 AM [...] PM AMBULATORY - [place]IC[place] [facility] Jun 13, 2024 10:00 AM AMBULATORY - SURGERY [facility] Jun 13, 2024 10:01 AM [place] [facility] Jun 15, 2024 09:00 AM AMBULATORY - NONE [place] [facility] Jun 20, 2024 11:30 AM AMBULATORY - NONE [place] [facility] Jun 21, 2024 12:30 PM AMBULATORY [place] [facility] Jul 11, 2024 10:00 AM AMBULATORY - SURGERY [facility] Jul 11, 2024 10:01 AM AMBULATORY [place] [facility] Jul 24, 2024 11:00 AM AMBULATORY [place] [facility] Jul 27, 2024 10:00 AM AMBULATORY - NONE [place] [facility] Aug 29, 2024 10:30 AM AMBULATORY - NONE [place] [facility] Aug 29, 2024 11:15 AM AMBULATORY [place] [facility] Oct 23, 2024 01:00 PM AMBULATORY - MEDICINE [facility] Active, Pending, and [...] 04:04 PM Consult Order COMMUNITY CARE-ALLERGY Cons Box Sealing Machine Feeder's Choice [facility] May 03, 2024 12:00 AM Laboratory - Chemi stry Order URORISK DIAGNOSTIC PROFILE(Q) 24H RENAL STONE KIT 24H URINE SP [facility] Lab Results: +/- 30 [...] Type: PLASMA Comment: , Tests performed on [employer] Moses SN:[id number]) Ordering Provider: DAVID FAM Report Released Date/Time: Nov 15, 2023 11:30 AM Reporting Lab: [facility] [address] [place] [facility] [place] [address] Performing Lab: [facility] [address] [facility] [address] UREA NITROGEN 10 mg/dL -May 04, 2024 10:32 AM [facility] CREATININE WITH eGFR PANEL Specimen Type: PLASMA Comment: , Tests performed on [employer] Moses SN:[id number] ([id number]) Ordering Provider: DAVID FAM Report Released Date/Time: Nov 15, 2023 11:30 AM Reporting Lab: [facility] [address] [place] [facility] [place] [address] Performing Lab: [facility] [address] [facility] [address] CREATININE 0.91 mg/dL 0.50-1.50 eGFR(CKD-EPI 2020) 86 Vital Signs: All taken on the encounter date This section contains inpatient and outpatient Vital Signs collected on the date of the Encounter. Date/Time Temperature Pulse Blood Pressure Respiratory Rate SP02 Pain Height Weight Body Mass Index Source May 04, 2024 01:44 PM 97 78 130/72 17 98 0 [facility] Social History: Smoking Status [...] Feb 21, 2024 10:15 AM VA-TOBACCO USE DICTAPHONE TYPIST NO [facility] Feb 21, 2024 10:15 AM VA-TOBACCO USE MED NO [facility] Feb 21, 2024 10:15 AM VA-TOBACCO USE WI 30 MIN OF WAKEUP [facility] Feb 21, 2024 10:15 AM VA-TOBACCO USER EVERY DAY [facility] Jul 17, 2021 02:27 PM CURRENT SMOKER [facility] Jannette [facility] Jul 01, 2021 [...] CTA ABDOMEN AND PE LVIS: GALINA LOYD [id number] -1945 M Exm Date: MAY 04, 2024@12:30 Req Phys: VIMAL FAM Pat Loc: [facility] VASCULAR 15 M3RH (Req'g Lo Img Loc: CT SCAN (OOS) Service: [place] [facility] [address] (Case [id number] COMPLETE) CTA ABDOMEN AND PELVIS (CT Detailed) CPT:38373 Contrast Media : Non-ionic Iodinated Reason for [...] 05, 2024 Date Verified: MAY 05, 2024 Founder E-Sig:/ES/NÉSTOR PASCUAL Report: CTA ABDOMEN AND PELVIS [...] REQUIRED Primary Interpreting Staff: NÉSTOR PASCUAL, RADIOLOGIST (Founder) /NÉSTOR CONNER [facility]
--- OUTSIDE RECORDS SUMMARY | 2024-07-07 22:24 | XMS_ITS | Encounter Summary ---
Author Name [place] Address [address] [place] [address] Care Team Providers Care Spanish Interpreter Name Role Phone RON KYRA Primary Care [...] Patient's Relationship to Policy Ervin [facility] (WNR) MEDICARE ADVANTAGE MCR(W NR) * Aug 23, 2023 [id number] [phone] ANNALISA LOYD ITE PATIENT [facility] (WNR) MEDICARE ADVANTAGE [facility] (WNR) Aug 23, 2020 [id number] [phone] ANNALISA LOYD ITE PATIENT [facility] (WNR) MEDICARE ADVANTAGE [facility](W NR) Aug 23, 2012 [id number] ANNALISA LOYD PATIENT Selected Encounter This section includes the information on record at [place] for the Encounter. Date/Time Encounter Type Encounter Description Reason Provider Source May 04, 2024 01:00 PM OFFICE O/P EST MOD 30 MIN VASCULAR SURGERY ICD-10-CM I71.40 Abdominal aortic aneurysm, without rupture, unspecified MELISSA CHONG Jannette Encounter Template Text not used by [place] Assessments - Encounter Diagnoses This section includes the primary and secondary diagnoses documented for the Encounter. Date/Time Primary/Secondary Diagnosis Diagnosis Name Provider Source May 05, 2024 04:41 PM PRIMARY Abdominal aortic aneurysm, without rupture, unspecified SAMUEL CHONG [place] [facility] Plan of Treatment: Future Appointments (+ 6 months) and Future Tests (+/- 45 days) The Plan of Treatment section includes future care activities for the patient from all [place] [facility] This section includes future appointments and future [...] AMBULATORY - NONE [place] [facility] May 16, 2024 10:00 AM AMBULATORY - SURGERY [facility] May 16, 2024 10:01 AM [place] [facility] May 19, 2024 08:00 AM AMBULATORY - NONE [place] [facility] May 26, 2024 10:00 AM AMBULATORY - NONE [place] [facility] Jun 07, 2024 01:00 PM [place]ORY [place] [facility] Jun 07, 2024 03:55 PM AMBULATORY - MEDICINE [place] [facility] Jun 13, 2024 10:00 AM AMBULATORY - SURGERY [facility] Jun 13, 2024 10:01 AM [place] [facility] Jun 15, 2024 09:00 AM AMBULATORY - NONE [place] [facility] Jun 20, 2024 11:30 AM AMBULATORY - NONE [place] [facility] Jun 21, 2024 12:30 PM [place] [facility] Jul 11, 2024 10:00 AM AMBULATORY - SURGERY [facility] Jul 11, 2024 10:01 AM [place] [facility] Jul 24, 2024 11:00 AM [place]ORY [place] [facility] Jul 27, 2024 10:00 AM AMBULATORY - NONE [place] [facility] Aug 29, 2024 10:30 AM AMBULATORY - NONE [place] [facility] Aug 29, 2024 11:15 AM AMBULATORY - SURGERY [place]AL[place] T [facility] Oct 23, 2024 01:00 PM AMBULATORY - MEDICINE [facility] Active, Pending, and [...] 04:04 PM Consult Order COMMUNITY CARE-ALLERGY Cons Clay Pigeon Loader's Choice [facility] May 03, 2024 [...] Type: PLASMA Comment: , Tests performed on [employer] SN:[id number] ([id number]) Ordering Provider: DAVID CHONG Report Released Date/Time: Nov 15, 2023 11:30 AM Reporting Lab: [facility] [address] [facility] [place] [address] Performing Lab: [facility] [address] [facility] [place] [address] UREA NITROGEN 10 mg/dL -May 04, 2024 10:32 AM [facility] CREATININE WITH eGFR PANEL Specimen Type: PLASMA Comment: , Tests performed on [employer] SN:[id number] ([id number]) Ordering Provider: DAVID CHONG Report Released Date/Time: Nov 15, 2023 11:30 AM Reporting Lab: [facility] [address] [facility] [address] Performing Lab: [facility] [address] [facility] [address] CREATININE 0.91 mg/dL 0.50-1.50 eGFR(CKD-EPI 2020) 86 Vital Signs: All taken on the encounter date This section contains inpatient and outpatient Vital Signs collected on the date of the Encounter. Date/Time Temperature Pulse Blood Pressure Respiratory Rate SP02 Pain Height Weight Body Mass Index Source May 04, 2024 01:44 PM 97 78 130/72 17 98 0 [facility] Social History: Smoking Status [...] Feb 21, 2024 10:15 AM VA-TOBACCO USE THERAPY DIRECTOR NO [facility] Feb 21, 2024 10:15 AM VA-TOBACCO USE MED NO [facility] Feb 21, 2024 10:15 AM VA-TOBACCO USE WI 30 MIN OF WAKEUP [facility] Feb 21, 2024 10:15 AM VA-TOBACCO USER EVERY DAY [facility] Jul 17, 2021 02:27 PM CURRENT SMOKER [facility] [facility] Jul 01, 2021 08:55 PM VA-VAAES TOBACCO U SE CURRENT NRT DECLINE [facility] Jul 01, 2021 02:41 PM CURRENT SMOKER REINIER [place] [facility] Dec 08, 2020 08:45 PM VA-TOBACCO [...] CTA ABDOMEN AND PE LVIS: GALINA LOYD [id number] -1945 M Exm Date: MAY 04, 2024@12:30 Req Phys: ONEL CHONG Pat Loc: [facility] VASCULAR 15 M3RH (Req'g Lo Img Loc: CT SCAN (OOS) Service: [place] [facility] [address] (Case [id number] COMPLETE) CTA ABDOMEN AND PELVIS (CT Detailed) CPT:80941 Contrast Media : Non-ionic Iodinated Reason for [...] 05, 2024 Date Verified: MAY 05, 2024 Head Porter E-Sig:/ES/NÉSTOR PASCUAL Report: CTA ABDOMEN AND PELVIS [...] REQUIRED Primary Interpreting Staff: NÉSTOR PASCUAL, RADIOLOGIST (Head Porter) /NÉSTOR CONNER [place] [facility] Encounter Notes: All associated encounter notes This section contains the clinical notes associated to the Encounter. Date/Time Encounter Note(s) Provider Source May 04, 2024 01:13 PM VASCULAR SURGERY OUTPATIENT NOTE: LOCAL TITLE: Vasc Surgery/Outpatient Progress Note STANDARD TITLE: VASCULAR SURGERY [...] Z77.29 Exposure to potentially hazardous substance (RUST 510883104669747) F05. 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 Hypertension (RUST 67933621) T83.038A Family history of prostate cancer (RUST 762811423) Z80.3 Family history of malignant neoplasm of breast (RUST 106035801) Z77.098 Injury due to chemical exposure (RUST 926940843) PHYSICAL EXAM: Alert and oriented x3. Nonfocal. [...] stool burden Procedure: Arterial Duplex Exam Registered Web Site Manager: ALETHEA TREJO Ordering Provider: Onel Chong Indication [...] of Care: F/U /vivian/ ONEL CHONG Physician Shipboard Intelligence Analyst Signed: 05/05/2024 16:42 ONEL CHONG [facility]
--- OUTSIDE RECORDS SUMMARY | 2024-07-07 22:24 | XMS_ITS ---
Author Name Department [place] Organization [place] Address [address] [place] [address] Care Team Providers Care Aircraft Mechanic Electrical And Radio Name Role Phone KYRA VELASQUEZ Primary Care [...] Ervin's Name Patient's Relationship to Policy Ervin [facility] (WNR) MEDICARE [facility](W NR) * Aug 23, 2023 [id number] ANNALISA LODY ITE PATIENT [facility]CR (WNR) MEDICARE ADVANTAGE [facility] (WNR) Aug 23, 2020 [id number] [phone] ANNALISA LOYD ITE PATIENT [facility] (WNR) MEDICARE ADVANTAGE [facility](W NR) Aug 23, 2012 [id number] ANNALISA LOYD ITJannette PATIENT Selected Encounter [...] [place] [facility] Jun 07, 2024 01:00 PM AMBUL[place]ORY [place] [facility] Jun 07, 2024 03:55 PM [place]ORY [place]IC[place] [facility] Jun 13, 2024 10:00 AM AMBULATORY - SURGERY [facility] Jun 13, 2024 10:01 AM [place] [facility] Jun 15, 2024 09:00 AM AMBULATORY - NONE [place] [facility] Jun 20, 2024 11:30 AM AMBULATORY - NONE [place] [facility] Active, Pending, and Scheduled Orders This section [...] 04:04 PM Consult Order COMMUNITY CARE-ALLERGY Cons Ecommerce Marketing Specialist's Choice [facility] May 03, 2024 12:00 AM Laboratory - Chemi stry Order URORISK DIAGNOSTIC PROFILE(Q) 24H RENAL STONE KIT 24H URINE SP [facility] Lab Results: +/- 30 days [...] Type: PLASMA Comment: , Tests performed on [employer] Moses SN:[id number] (405) Ordering Provider: DAVID FAM Report Released Date/Time: Nov 15, 2023 11:30 AM Reporting Lab: [facility] [address] [place] [facility] [place] [address] Performing Lab: [facility] [address] [facility] [address] UREA NITROGEN 10 mg/dL 03-16May 04, 2024 10:32 AM [facility] CREATININE WITH eGFR PANEL Specimen Type: PLASMA Comment: , Tests performed on [employer] Moses SN:[id number] ([id number]) Ordering Provider: DAVID FAM Report Released Date/Time: Nov 15, 2023 11:30 AM Reporting Lab: [facility] [address] [place] [facility] [place] [address] Performing Lab: [facility] [address] [place] [facility] [place] [address] CREATININE 0.91 mg/dL 0.50-1.50 eGFR(CKD-EPI 2020) 86 [...] Feb 21, 2024 10:15 AM VA-TOBACCO USE SENIOR DYNAMICS CRM DEVELOPER NO [facility] Feb 21, 2024 10:15 [...] Jul 01, 2021 02:41 PM CURRENT SMOKER [facility] Dec 08, 2020 08:45 [...] Source Nov 18, 2017 ADVANCE DIRECTIVE REBECCARADHA [facility] Jul 08, 2017 ADVANCE DIRECTIVE [...] CTA ABDOMEN AND PE LVIS: GALINA LOYD [id number] -1945 M Exm Date: MAY 04, 2024@12:30 Req Phys: VIMAL FAM Pat Loc: [facility] VASCULAR 15 M3RH (Req'g Lo Img Loc: CT SCAN (OOS) Service: [place] [address] (Case [id number] COMPLETE) CTA ABDOMEN AND PELVIS (CT Detailed) CPT:38063 Contrast Media : Non-ionic Iodinated Reason for [...] 05, 2024 Date Verified: MAY 05, 2024 Voltmeter Operator E-Sig:/ES/NÉSTOR PASCUAL Report: CTA ABDOMEN AND [...] REQUIRED Primary Interpreting Staff: NÉSTOR PASCUAL, RADIOLOGIST (Voltmeter Operator) /NÉSTOR CONNER [facility] Encounter Notes: All [...] 04/11/2024 @ 10:00am. /vivian/ ADITI GARCIA Health Archery Equipment Repairer Signed: 04/10/2024 15:39 ADITI GARCIA [facility]
--- OUTSIDE RECORDS SUMMARY | 2024-07-07 22:24 | XMS_ITS | Encounter Summary ---
Author Name [place] Address [address] [place] [address] Care Team Providers Care Filter Washer And Presser Name Role Phone KYRA VELASQUEZ Primary Care [...] Patient's Relationship to Policy Ervin [facility] (WNR) MEDICARE ADVANTAGE MCR(W NR) * Aug 23, 2023 [id number] ANNALISA LOYD ITE PATIENT [facility] (WNR) MEDICARE ADVANTAGE [facility] (WNR) Aug 23, 2020 [id number] [phone] ANNALISA LOYD ITE PATIENT [facility] (WNR) MEDICARE [facility](W NR) Aug 23, 2012 [id number] ANNALISA LOYD ITE PATIENT Selected Encounter [...] activities for the patient from all [place] [facility]. This section includes future appointments and [...] [place] [facility] Jun 07, 2024 01:00 PM AMBULATORY [place] [facility] Jun 07, 2024 03:55 PM AMBULATORY [place]IC[place] [facility] Jun 13, 2024 10:00 AM AMBULATORY - SURGERY [facility] Jun 13, 2024 10:01 AM AMBULATORY [place] [facility] Jun 15, 2024 09:00 AM AMBULATORY - NONE [place] [facility] Jun 20, 2024 11:30 AM AMBULATORY - NONE [place] [facility] Jun 21, 2024 12:30 PM AMBULATORY [place] [facility] Jul 11, 2024 10:00 AM AMBULATORY - SURGERY [facility] Jul 11, 2024 10:01 AM [facility] 04:04 PM Consult Order COMMUNITY CARE-ALLERGY Cons Cadence Specialists's Choice [facility] May 03, 2024 12:00 AM Laboratory - Chemi stry Order URORISK DIAGNOSTIC PROFILE(Q) 24H RENAL STONE KIT 24H URINE SP [facility] Lab Results: +/- [...] Type: PLASMA Comment: , Tests performed on [employer] Moses SN:[id number] ([id number]) Ordering Provider: DAVID FAM Report Released Date/Time: Nov 15, 2023 11:30 AM Reporting Lab: [facility] [address] [place] [facility] [place] [place] [address] Performing Lab: [facility] [address] [facility] [address] UREA NITROGEN 10 mg/dL -May 04, 2024 10:32 AM [facility] CREATININE WITH eGFR PANEL Specimen Type: PLASMA Comment: , Tests performed on [employer] Moses SN:[id number] (405) Ordering Provider: DAVID FAM Report Released Date/Time: Nov 15, 2023 11:30 AM Reporting Lab: [facility] [address] [place] [facility] [place] [place] [address] Performing Lab: [facility] [address] [facility] [address] CREATININE 0.91 mg/dL 0.50-1.50 eGFR(CKD-EPI 2020) 86 [...] MIN OF WAKEUP [facility] Tobacco Use History [...] Feb 21, 2024 10:15 AM VA-TOBACCO USE SOFTWARE CONFIGURATION ANALYST NO [facility] Feb 21, [...] Source Nov 18, 2017 ADVANCE DIRECTIVE REBECCARADHA [facility] Jul 08, 2017 [...] CTA ABDOMEN AND PE LVIS: GALINA LOYD [id number] -1945 M Exm Date: MAY 04, 2024@12:30 Req Phys: VIMAL FAM Pat Loc: [facility] VASCULAR 15 M3RH (Req'g Lo Img Loc: CT SCAN (OOS) Service: [place] [address] (Case [id number] COMPLETE) CTA ABDOMEN AND PELVIS (CT Detailed) CPT:68938 Contrast Media : Non-ionic Iodinated Reason for [...] 05, 2024 Date Verified: MAY 05, 2024 Ropeman E-Sig:/ES/NÉSTOR PASCUAL Report: CTA ABDOMEN AND PELVIS [...] REQUIRED Primary Interpreting Staff: NÉSTOR PASCUAL, RADIOLOGIST (Ropeman) /NÉSTOR CONNER [facility] Encounter Notes: All associated encounter notes [...] (s) COMMUNITY CARE-ORTHOPEDICS GENERAL Cons Consult # [id number] Date of Service (Procedure/Event): 04/21/2024 Note Title: COMMUNITY CARE CONSULT RESULT NOTE Origin: [place] Type: PROGRESS NOTE Specialty: ORTHOPEDICS Procedure: VISIT-CLOSED LT HIP FRACTURE [facility] SCANNED DOCUMENT SIGNATURE NOT REQUIRED Electronically Filed: 04/29/2024 by: NICOLE CASTELLON COLLIERY CLERK NICOLE CASTELLON [facility]
--- OUTSIDE RECORDS SUMMARY | 2024-07-07 22:24 | XMS_ITS ---
Author Name [place] Address [address] [place] [address] Care Team Providers Care Shop And Alteration Tailor Name Role Phone KYRA VELASQUEZ Primary Care [...] Policy Ervin [facility] (WNR) MEDICARE [facility](W NR) * Aug 23, 2023 [id number] ANNALISA LOYD ITE PATIENT [facility] MCR (WNR) MEDICARE ADVANTAGE [facility] (WNR) Aug 23, 2020 [id number] [phone] ANNALISA LOYD ITE PATIENT [facility] (WNR) MEDICARE ADVANTAGE [facility](W NR) Aug 23, 2012 [id number] ANNALISA LOYD ITJannette PATIENT Selected Encounter [...] [place] [facility] May 04, 2024 01:00 PM AMBULATORY [place] [facility] May 08, 2024 02:30 PM AMBULATORY - MEDICINE [facility] May 08, 2024 02:31 PM AMBULATORY - NONE [place] [facility] May 16, 2024 10:00 AM AMBULATORY - SURGERY [facility] May 16, 2024 10:01 AM AMBULATORY [place] [facility] May 19, 2024 08:00 AM AMBULATORY - NONE [place] [facility] May 26, 2024 10:00 AM AMBULATORY - NONE [place] [facility] Jun 07, 2024 01:00 PM AMBULATORY [place] [facility] Jun 07, 2024 03:55 PM AMBULATORY [place]IC[place] [facility] Jun 13, 2024 10:00 AM AMBULATORY - SURGERY [facility] Jun 13, 2024 10:01 AM AMBULATORY [place] [facility] Jun 15, 2024 09:00 AM AMBULATORY - NONE [place] [facility] Jun 20, 2024 11:30 AM AMBULATORY - NONE [place] [facility] Jun 21, 2024 12:30 PM AMBULATORY - SURGERY [facility] Jul 11, 2024 10:00 AM [...] 04:04 PM Consult Order COMMUNITY CARE-ALLERGY Cons Document Control Clerk's Choice [facility] May 03, 2024 12:00 AM Laboratory - Chemi stry Order URORISK DIAGNOSTIC PROFILE(Q) 24H RENAL STONE KIT 24H URINE SP [facility] Lab Results: +/- [...] Range Comment May 04, 2024 10:32 AM [facility] UREA NITROGEN Specimen Type: PLASMA Comment: , Tests performed on [employer] Moses SN:[id number] (405) Ordering Provider: DAVID FAM Report Released Date/Time: Nov 15, 2023 11:30 AM Reporting Lab: [facility] [address] [place] [facility] [place] [address] Performing Lab: [facility] [address] [facility] [address] UREA NITROGEN 10 mg/dL 03-16May 04, 2024 10:32 AM [facility] CREATININE WITH eGFR PANEL Specimen Type: PLASMA Comment: , Tests performed on [employer] Moses SN:[id number] (405) Ordering Provider: DAVID FAM Report Released Date/Time: Nov 15, 2023 11:30 AM Reporting Lab: [facility] [address] [place] [facility] [place] [address] Performing Lab: [facility] [address] [place] [facility] [place] [address] CREATININE 0.91 mg/dL 0.50-1.50 eGFR(CKD-EPI 2020) 86 [...] 21, 2024 10:15 AM VA-TOBACCO USE SENIOR RESEARCH ANALYST NO [facility] Feb 21, 2024 10:15 AM VA-TOBACCO USE MED NO [facility] Feb 21, 2024 10:15 AM VA-TOBACCO USE WI 30 MIN OF WAKEUP [facility] Feb 21, 2024 10:15 AM VA-TOBACCO USER EVERY DAY [facility] Jul 17, 2021 02:27 PM CURRENT SMOKER REINIER Bhatia [facility] Jul 01, 2021 08:55 PM [...] Source Nov 18, 2017 ADVANCE DIRECTIVE REBECCARADHA [facility] Jul 08, 2017 [...] CTA ABDOMEN AND PE LVIS: GALINA LOYD [id number] -1945 M Exm Date: MAY 04, 2024@12:30 Req Phys: VIMAL FAM Pat Loc: [facility] VASCULAR 15 M3RH (Req'g Lo Img Loc: CT SCAN (OOS) Service: [place] [address] (Case [id number] COMPLETE) CTA ABDOMEN AND PELVIS (CT Detailed) CPT:40669 Contrast Media : Non-ionic Iodinated Reason for [...] 05, 2024 Date Verified: MAY 05, 2024 Director Of Partnerships E-Sig:/VIVIAN/NÉSTOR PASCUAL Report: CTA ABDOMEN AND PELVIS [...] REQUIRED Primary Interpreting Staff: NÉSTOR PASCUAL, RADIOLOGIST (Director Of Partnerships) /NÉSTOR CONNER [facility] Encounter Notes: All associated encounter notes This [...] 05/08/24 @ 2:30PM. /vivian/ ADITI GARCIA [facility] Signed: 04/13/2024 16:[address] [facility]
--- OUTSIDE RECORDS SUMMARY | 2024-07-07 22:24 | XMS_ITS | Encounter Summary ---
Author Name [facility] [place] Organization [place] Address [address] [place] [address] Care Team Providers Care Regulator Operator Name Role Phone KYRA VELASQUEZ Primary [...] [facility] (WNR) MEDICARE ADVANTAGE MCR(W NR) * Aug 23, 2023 [id number] ANNALISA LOYD ITE PATIENT [facility] (WNR) MEDICARE ADVANTAGE [facility] (WNR) Aug 23, 2020 [id number] [phone] ANNALISA LOYD ITE PATIENT [facility] (WNR) MEDICARE [facility](W NR) Aug 23, 2012 [id number] [phone] ANNALISA LOYD ITE PATIENT Selected Encounter [...] activities for the patient from all [place] treatmentfaunc health southeasternities. This section includes future appointments and future [...] [place] [facility] May 03, 2024 02:30 PM AMBULATORY - [place] [facility] May 04, 2024 10:30 AM AMBULATORY - [place]IC[place] [facility] May 04, 2024 11:00 AM AMBULATORY - [place] [facility] May 04, 2024 12:30 PM AMBULATORY - NONE [place] [facility] May 04, 2024 01:00 PM AMBULATORY - [place] [facility] May 08, 2024 02:30 PM AMBULATORY - MEDICINE [facility] May 08, 2024 02:31 PM AMBULATORY - NONE [place] [facility] May 16, 2024 10:00 AM AMBULATORY - SURGERY [facility] May 16, 2024 10:01 AM AMBULATORY [place] [facility] May 19, 2024 08:00 AM AMBULATORY - NONE [place] [facility] May 26, 2024 10:00 AM AMBULATORY - NONE [place] [facility] Jun 07, 2024 01:00 PM AMBULATORY [place] [facility] Jun 07, 2024 03:55 PM AMBULATORY - [place]IC[place] [facility] Jun 13, 2024 10:00 AM [facility]BULATORY - [facility] Jun 13, 2024 10:01 AM AMBULATORY - SURGERY SONYA GAYLE [facility] Jun 15, 2024 09:00 AM AMBULATORY - NONE [place] [facility] Jun 20, 2024 11:30 AM AMBULATORY - NONE [place] [facility] Jun 21, 2024 12:30 PM AMBULATORY - SURGERY CASCADE NALINI [facility] Jul 11, 2024 10:00 AM AMBULATORY - SURGERY [facility] Jeimy [facility] Active, Pending, and [...] 04:04 PM Consult Order COMMUNITY CARE-ALLERGY Cons Clerk Of Superior Court's Choice [facility] May 03, 2024 12:00 AM Laboratory - Chemi stry Order URORISK DIAGNOSTIC PROFILE(Q) 24H RENAL STONE KIT 24H URINE SP [facility] Lab Results: +/- 30 [...] Type: PLASMA Comment: , Tests performed on Lumense SN:[id number] ([id number]) Ordering Provider: DAVID FAM Report Released Date/Time: Nov 15, 2023 11:30 AM Reporting Lab: [facility] [address] [place] [place] [place] [place] [address] Performing Lab: [facility] [address] [facility] [address] UREA NITROGEN 10 mg/dL 03-16May 04, 2024 10:32 AM [facility] CREATININE WITH eGFR PANEL Specimen Type: PLASMA Comment: , Tests performed on [employer] Lopes SN:[id number] ([id number]) Ordering Provider: DAVID FAM Report Released Date/Time: Nov 15, 2023 11:30 AM Reporting Lab: [facility] [address] [facility] [address] Performing Lab: [facility] [address] [facility] [address] CREATININE 0.91 mg/dL 0.50-1.50 eGFR(CKD-EPI 2020) 86 [...] May 14, 2022 09:30 AM VA-TOBACCO USE FIRST AID TEACHER NO [facility] May 14, 2022 [...] December 28, 2018 11:23 AM VA-TOBACCO USE FIRST AID TEACHER NO [facility] December 28, 2018 11:23 AM VA-TOBACCO USE MED NO [facility] December 28, 2018 11:23 AM VA-TOBACCO USE [place] [address] [facility] December 28, 2018 11:23 AM VA-TOBACCO USER EVERY DAY [facility] Aug 10, 2016 09:05 AM CURRENT SMOKER Jorge A [facility] Aug 10, 2016 [...] PM CTA ABDOMEN AND PE LVIS: GALINA LYOD [id number] -1945 M Exm Date: MAY 04, 2024@12:30 Req Phys: VIMAL FAM Pat Loc: [facility] VASCULAR 15 M3RH (Req'g Lo Img Loc: CT SCAN (OOS) Service: [place] [address] (Case [id number] COMPLETE) CTA ABDOMEN AND PELVIS (CT Detailed) CPT:88359 Contrast Media : Non-ionic Iodinated Reason for [...] 05, 2024 Date Verified: MAY 05, 2024 Glacing Machine Tender E-Sig:/ES/NÉSTOR PASCUAL Report: CTA ABDOMEN AND PELVIS [...] REQUIRED Primary Interpreting Staff: NÉSTOR PASCUAL, RADIOLOGIST (Glacing Machine Tender) /NÉSTOR CONNER [facility] Encounter Notes: All associated encounter notes This section contains the clinical notes associated to the Encounter. Date/Time Encounter Note(s) Provider Source Apr 11, 2024 11:17 AM TELEHEALTH NOTE: LOCAL TITLE: Telehealth Hot Dip Galvanizer Note STANDARD TITLE: TELEHEALTH NOTE DATE OF [...] always have the option to drive to [place] to see the provider in person. They [...] through an in-person visit at the nearest [place] clinical site offering the requested service, and the patient's right of refusal, at any time, for any Telehealth. Emergency contact information was obtained as follows: Current Location: [facility] Current Address: [address] [place], [place] [id number] County: [place] Emergency Contact Name: ADITI GARCIA Emergency Relationship: TCT Emergency Number: [phone] /es/ ADITI GARCIA Health Hot Dip Galvanizer Signed: 04/11/2024 11:19 [facility]
--- OUTSIDE RECORDS SUMMARY | 2024-07-07 22:24 | XMS_ITS | Encounter Summary ---
Author Name [facility] [place] Address [address] [place] [address] Care Team Providers Care Shore Working Supervisor Name Role Phone RONKYRA Primary Care Provider [...] [facility] (WNR) MEDICARE ADVANTAGE MCR(W NR) * Aug 23, 2023 [id number] ANNALISA LOYD ITE PATIENT [facility] (WNR) MEDICARE ADVANTAGE [facility] (WNR) Aug 23, 2020 [id number] [phone] ANNALISA LOYD ITE PATIENT [facility] (WNR) MEDICARE ADVANTAGE [facility](W NR) Aug 23, 2012 [id number] [phone] ANNALISA LOYD PATIENT Selected Encounter This section includes the information on record at [place] for the Encounter. Date/Time Encounter Type Encounter Description Reason Provider Source May 03, 2024 02:30 PM OFFICE O/P EST HI 40 MIN UROLOGY CLINIC ICD-10-CM N20.1 Calculus of ureter CORBY OSORIO E Encounter Template Text not used by [place] Assessments - Encounter Diagnoses This section includes the primary and secondary diagnoses documented for the Encounter. Date/Time Primary/Secondary Diagnosis Diagnosis Name Provider Source May 03, 2024 03:05 PM PRIMARY Calculus of ureter CORBY OSORIO [facility] May 03, 2024 03:05 PM SECONDARY Malignant neoplasm of prostate CORBY OSORIO [facility] Plan of Treatment: Future Appointments (+ 6 months) and Future Tests (+/- 45 days) The Plan of Treatment section includes future care activities for the patient from all [place] [facility]. This section includes future appointments [...] [place] [facility] Jun 07, 2024 03:55 PM AMBULATORY - [place]IC[place] [facility] Jun 13, 2024 10:00 AM AMBULATORY - SURGERY [facility] Jun 13, 2024 10:01 AM AMBULATORY - [place] [facility] Jun 15, 2024 09:00 AM AMBULATORY - NONE [place] JO[place]LE [facility] Jun 20, 2024 11:30 AM AMBULATORY - NONE [place] JOELLE T [facility] Jun 21, 2024 12:30 PM AMBULATORY - SURGERY [place] N[place]INI [facility] Jul 11, 2024 10:00 AM [facility]ULAT[facility] Jul 11, 2024 10:01 AM AMBULATORY - SURGERY [facility] Jul 24, 2024 11:00 AM [facility] - [facility] 04:04 PM Consult Order COMMUNITY CARE-ALLERGY Cons Budder's Choice [facility] May [...] Type: PLASMA Comment: , Tests performed on ALLGOOB Lopes SN:[id number] ([id number]) Ordering Provider: DAVID FAM Report Released Date/Time: Nov 15, 2023 11:30 AM Reporting Lab: [facility] [address] [facility] [address] Performing Lab: [facility] [address] [facility] [address] UREA NITROGEN 10 mg/dL 03-16May 04, 2024 10:32 AM [facility] CREATININE WITH eGFR PANEL Specimen Type: PLASMA Comment: , Tests performed on ALLGOOB Lopes SN:[id number] (954) Ordering Provider: DAVID FAM Report Released Date/Time: Nov 15, 2023 11:30 AM Reporting Lab: [facility] [address] [facility] [address] Performing Lab: [facility] [address] [facility] [address] CREATININE 0.91 mg/dL 0.50-1.50 eGFR(CKD-EPI 2020) 86 [...] 2022 09:30 AM VA-TOBACCO USER EVERY DAY [facility] Tobacco Use History This section includes a history of the smoking, or tobacco-related health factors, that were collected on or before the date of the Encounter. The data comes from the [place] facility where the Encounter took place. Date/Time Smoking Status/Tobacco Use Comment F acility May 14, 2022 09:30 AM VA-TOBACCO USE ADVICE [facility] May 14, 2022 09:30 AM VA-TOBACCO USE INTERNET E COMMERCE SPECIALIST NO [facility] May 14, 2022 09:30 AM VA-TOBACCO USE MED NO [facility] May 14, 2022 09:30 AM VA-TOBACCO USE WI 30 MIN OF WAKE UP [facility] May 14, 2022 09:30 AM VA-TOBACCO USER EVERY DAY [facility] Jun 27, 2020 09:30 AM VA-TOBACCO FORMER USER [facility] Jun 27, 2020 09:30 AM VA-TOBACCO QUIT < 1 YEAR [facility] December 28, 2018 11:23 AM VA-TOBACCO USE 30 YEARS OR MORE [facility] December 28, 2018 11:23 AM VA-TOBACCO USE ADVICE [facility] December 28, 2018 11:23 AM VA-TOBACCO USE INTERNET E COMMERCE SPECIALIST NO [facility] December 28, 2018 11:23 AM VA-TOBACCO USE MED NO [facility] December 28, 2018 11:23 AM VA-TOBACCO USE WI 30 MIN OF WAKE UP Jorge A [facility] December 28, 2018 11:23 AM VA-TOBACCO USER EVERY DAY Jorge A [facility] Aug 10, 2016 09:05 AM CURRENT SMOKER Jorge A [facility] Aug 10, 2016 09:05 AM V1-PT [...] CTA ABDOMEN AND PE LVIS: GALINA LOYD [id number] -1945 M Exm Date: MAY 04, 2024@12:30 Req Phys: VIMAL FAM Pat Loc: [facility] VASCULAR 15 M3RH (Req'g Lo Img Loc: CT SCAN (OOS) Service: Unknown [place] [address] (Case [id number] COMPLETE) CTA ABDOMEN AND PELVIS (CT Detailed) CPT:73258 Contrast Media : Non-ionic Iodinated Reason for [...] 05, 2024 Date Verified: MAY 05, 2024 Balcony Worker E-Sig:/ES/NÉSTOR PASCUAL Report: CTA ABDOMEN AND PELVIS [...] REQUIRED Primary Interpreting Staff: NÉSTOR PASCUAL, RADIOLOGIST (Balcony Worker) /NÉSTOR CONNER [facility] Encounter Notes: All associated encounter notes This section contains the clinical notes associated to the Encounter. 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), nephrolithiasis, LUTS/increased [...] left URS with bilateral [facility] [place] [facility] in 2023 with [...] are not called on US ++ - .2022 CT scan w/o contrast partially exophytic bilobed [...] Injury due to chemical exposure (SNOMED CT [id number]) PSH: 04/29/2023 BILATERAL URETEROSCOPY, ..., STENT (COMPLETED) [...] LOWER CHOLESTEROL 2) DRESS,MEPILEX BORDER FLEX 4X4IN #[id number] APPLY ONE ACTIVE DRESSING TOPICALLY EVERY THIRTY-SIX HOURS SACRAL PRESSURE SORE APPLY DIRECTED 3) DRESS,MEPILEX BORDER FLEX 6X6IN #[id number] APPLY ONE ACTIVE DRESSING TOPICALLY THREE TIMES PER WEEK NEEDED 4) DRESSING,MEPILEX BORDR 8.7X9.8IN #[id number] APPLY ONE ACTIVE DRESSING TOPICALLY THREE TIMES [...] ecchymosis Genitourinary -- no CVAT LABS: PSA (SENIOR DRUPAL DEVELOPER) 06/16/23 13:20 0.13 ++ raquel ++ 12/08/22 [...] rx's might reduce his stone risk (2) 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
--- OUTSIDE RECORDS SUMMARY | 2024-07-07 22:24 | XMS_ITS | Encounter Summary ---
Author Name [place] Address [address] [place] [address] Care Team Providers Care Rfp Writer Name Role Phone RON KYRA Primary Care [...] ADVANTAGE MCR(W NR) * Aug 23, 2023 [id number] ANNALISA LOYD ITE PATIENT [facility] (WNR) MEDICARE ADVANTAGE [facility] (WNR) Aug 23, 2020 [id number] [phone] ANNALISA LOYD ITE PATIENT [facility] (WNR) MEDICARE ADVANTAGE [facility](W NR) Aug 23, 2012 [id number] ANNALISA LOYD PATIENT Selected Encounter This [...] IHJannette Encounter Template Text not used by [place] Assessments - Encounter Diagnoses This section includes the primary and secondary diagnoses documented for the Encounter. Date/Time Primary/Secondary Diagnosis Diagnosis Name Provider Source Apr 11, 2024 11:05 AM PRIMARY Pressr ulcer of contig site of back, buttock and hip, stg [address] [facility] Apr 11, 2024 11:05 AM SECONDARY [...] AMBULATORY - NONE [place] T [facility] May 03, 2024 02:30 PM AMBULATORY - [place] [facility] May 04, 2024 10:30 AM AMBULATORY - MEDICINE REINIER GAYLE T [facility] May 04, 2024 11:00 AM AMBULATORY - [place] [facility] May 04, 2024 12:30 PM AMBULATORY - NONE [place] [facility] May 04, 2024 01:00 PM AMBULATORY - SURG[place] [facility] May 08, 2024 02:30 PM AMBULATORY - MEDICINE [facility] May 08, 2024 02:31 PM AMBULATORY - NONE [place] [facility] May 16, 2024 10:00 AM AMBULATORY - SURGERY [facility] May 16, 2024 10:01 AM AMBUL[place]ORY - [place] [facility] May 19, 2024 08:00 AM AMBULATORY - NONE [place] [facility] May 26, 2024 10:00 AM AMBULATORY - NONE [place] [facility] Jun 07, 2024 01:00 PM AMBULATORY - SURGERY SONYA GAYLE [facility] Jun 07, 2024 03:55 PM AMBULATORY - MEDICINE WH[place] Jannette GAYLE [facility] Jun 13, 2024 10:00 AM AMBULATORY - SURGERY [facility] Jun 13, 2024 10:01 AM AMBULATORY - SURGERY SONYA GAYLE [facility] Jun 15, 2024 09:00 AM AMBULATORY - NONE [place] LAI [facility] Jun 20, 2024 11:30 AM AMBULATORY - NONE [place] [facility] Jun 21, 2024 12:30 PM AMBULATORY - SURGERY SONYA GAYLE [facility] Jul 11, 2024 10:00 AM AMBULATORY - [...] 04:04 PM Consult Order COMMUNITY CARE-ALLERGY Cons Fish Protector's Choice [facility] May 03, 2024 [...] Type: PLASMA Comment: , Tests performed on TeaMobi Olpes SN:[id number] ([id number]) Ordering Provider: DAVID FAM Report Released Date/Time: Nov 15, 2023 11:30 AM Reporting Lab: [facility] [address] [facility] [address] Performing Lab: [facility] [address] [facility] [address] UREA NITROGEN 10 mg/dL 03-16May 04, 2024 10:32 AM [facility] CREATININE WITH eGFR PANEL Specimen Type: PLASMA Comment: , Tests performed on TeaMobi Lopes SN:[id number] (405) Ordering Provider: DAVID FAM Report Released Date/Time: Nov 15, 2023 11:30 AM Reporting Lab: [facility] [address] [facility] [address] Performing Lab: [facility] [address] [facility] [address] CREATININE 0.91 mg/dL 0.50-1.50 eGFR(CKD-EPI 2020) 86 [...] 30 MIN OF WAKEUP [facility] Tobacco Use History This [...] Feb 21, 2024 10:15 AM VA-TOBACCO USE GROCERY WORKER NO [facility] Feb 21, 2024 10:15 AM VA-TOBACCO USE MED NO [facility] Feb 21, 2024 10:15 AM VA-TOBACCO USE WI 30 MIN OF WAKEUP [facility] Feb 21, 2024 10:15 AM VA-TOBACCO USER EVERY DAY [facility] Jul 17, 2021 02:27 PM CURRENT SMOKER REINIER GAYLE [facility] Jul 01, 2021 08:55 PM VA-VAAES TOBACCO U SE CURRENT NRT DECLINE [facility] Jul 01, 2021 02:41 PM CURRENT SMOKER [place] [facility] Dec 08, 2020 08:45 PM VA-TOBACCO USER [...] CTA ABDOMEN AND PE LVIS: GALINA LOYD [id number] -1945 M Exm Date: MAY 04, 2024@12:30 Req Phys: VIMAL FAM Pat Loc: [facility] VASCULAR 15 M3RH (Req'g Lo Img Loc: CT SCAN (OOS) Service: [place] [address] (Case [id number] COMPLETE) CTA ABDOMEN AND PELVIS (CT Detailed) CPT:30284 Contrast Media : Non-ionic Iodinated Reason for [...] 05, 2024 Date Verified: MAY 05, 2024 Tenterer E-Sig:/ES/NÉSTOR PASCUAL Report: CTA ABDOMEN AND PELVIS [...] REQUIRED Primary Interpreting Staff: NÉSTOR PASCUAL, RADIOLOGIST (Tenterer) /NÉSTOR CONNER [facility] Encounter Notes: All associated encounter notes This section contains the clinical notes associated to the Encounter. Date/Time Encounter Note(s) Provider Source Apr 11, 2024 10:13 AM WOUND CARE CONSULT : LOCAL TITLE: CONSULT: Wound Care STANDARD TITLE: WOUND CARE CONSULT DATE OF NOTE: APR 11, 2024@10:13 ENTRY DATE: APR 11, 2024@10:13:39 AUTHOR: DANIELLE QUINTERO EXP COSIGNER: URGENCY: STATUS: [...] Injury due to chemical exposure (SNOMED CT [id number]) 69 in [175.3 cm] (04/06/2024 12:44) 118 lb [53.52 kg] (04/06/2024 12:44) BODY MASS INDEX - APR 06, 2024@12:44:02 17.5 NARRATIVE: 78 yo male with multiple medical problems including cva 2019, sdh, history of seizures, nephrolithiasis, h/o bl ureteral stents s/p removal, htn, tobacco use, follicular lymphoma, AAA, thoracic aortic aneurysm, etoh dependence in remission seen via out [facility] for assessment of pressure injuries to LEFT shoulder and LEFT buttock. He was admitted to [facility] in February and treated for left hip fracture by dr. nolasco with pinning. He was discharged to [facility] acute rehab. His noticed pressure injury to [...] ON THIS ENCOUNTER: 45 min /vivian/ DANIELLE SOMERSN, RN, CWON Signed: 04/11/2024 11:05 DANIELLE QUINTERO [facility]
--- OUTSIDE RECORDS SUMMARY | 2024-07-07 22:24 | XMS_ITS | Encounter Summary ---
Author Name [place] Organization [place] Address [address] [place] [address] Care Team Providers Care Ticketer Name Role Phone KYRA VELASQUEZ Primary Care [...] ADVANTAGE MCR(W NR) * Aug 23, 2023 [id number] ANNALISA LOYD ITE PATIENT [facility] (WNR) MEDICARE ADVANTAGE [facility] (WNR) Aug 23, 2020 [id number] [phone] ANNALISA LOYD ITE PATIENT [facility] (WNR) MEDICARE [facility](W NR) Aug 23, 2012 [id number] ANNALISA LOYD ITE PATIENT Selected Encounter This section includes the information on record at [place] for the Encounter. Date/Time Encounter Type Encounter Description Reason Pro vider Source Apr 14, 2024 03:31 PM Outpatient Encounter PRIMARY CARE/MEDICINE IHE Encounter Template Text not used by [place] Plan of Treatment: Future Appointments (+ 6 months) and Future Tests (+/- 45 days) The Plan of Treatment section includes future care activities for the patient from all [place] [facility]. This section includes future appointments and future [...] [place] [facility] Jun 07, 2024 01:00 PM AM[place]UL[place] [facility] Jun 07, 2024 03:55 PM [place]ULATORY - [place]IC[place] [facility] Jun 13, 2024 10:00 AM [facility] Jun 13, 2024 10:01 AM [place] [facility] Jun 15, 2024 09:00 AM AMBULATORY - NONE [place] [facility] Jun 20, 2024 11:30 AM AMBULATORY - NONE [place] [facility] Jun 21, 2024 12:30 PM [place]UL[place]ORY [place] [facility] Jul 11, 2024 10:00 AM AMBULATORY - SURGERY [facility] Active, Pending, and Scheduled [...] 04:04 PM Consult Order COMMUNITY CARE-ALLERGY Cons Star Route Mail Driver's Choice [facility] May 03, [...] Type: PLASMA Comment: , Tests performed on Filtr8 Moses [id number]) Ordering Provider: DAVID FAM Report Released Date/Time: Nov 15, 2023 11:30 AM Reporting Lab: [facility] [address] [place] [address] Performing Lab: [facility] [address] [facility] [address] UREA NITROGEN 10 mg/dL 03-16May 04, 2024 10:32 AM [facility] CREATININE WITH eGFR PANEL Specimen Type: PLASMA Comment: , Tests performed on Filtr8 Moses SN:[id number] ([id number]) Ordering Provider: DAVID FAM Report Released Date/Time: Nov 15, 2023 11:30 AM Reporting [facility] [address] [place] [facility] [place] [address] Performing Lab: [facility] [address] [facility] [address] CREATININE 0.91 mg/dL 0.50-1.50 eGFR(CKD-EPI 2020) 86 [...] Feb 21, 2024 10:15 AM VA-TOBACCO USE SUPERVISOR LATHING NO [facility] Feb 21, [...] Nov 18, 2017 ADVANCE DIRECTIVE REBECCARADHA [facility] Jul 08, 2017 [...] CTA ABDOMEN AND PE LVIS: GALINA LOYD [id number] -1945 M Exm Date: MAY 04, 2024@12:30 Req Phys: VIMAL FAM Pat Loc: [facility] VASCULAR 15 M3RH (Req'g Lo Img Loc: CT SCAN (OOS) Service: [place] [address] (Case [id number] COMPLETE) CTA ABDOMEN AND PELVIS (CT Detailed) CPT:78377 Contrast Media : Non-ionic Iodinated Reason for [...] 05, 2024 Date Verified: MAY 05, 2024 Visual Communications Instructor E-Sig:/ES/NÉSTOR PASCUAL Report: CTA ABDOMEN AND [...] IMMEDIATE ATTENTION REQUIRED Primary Interpreting Staff: NÉSTOR L PASCUAL, RADIOLOGIST (Visual Communications Instructor) /NÉSTOR CONNER T [facility] Encounter Notes: All associated encounter notes This section contains the clinical notes associated to the Encounter. Date/Time Encounter Note(s) Provider Source Apr 14, 2024 03:31 PM NONVA NOTE: LOCAL TITLE: NonVA Note STANDARD TITLE: NONVA NOTE DATE OF NOTE: APR 14, 2024@15:31 ENTRY DATE: APR 14, 2024@15:31:21 AUTHOR: JENIFER SHANE EXP COSIGNER: URGENCY: STATUS: COMPLETED [facility] application application is filled out, signed and forwarded to DMAzra /vivian/ JENIFER SHANE ARMORED CAR GUARD Signed: 04/14/2024 15:32 JENIFER SHANE [facility]
--- OUTSIDE RECORDS SUMMARY | 2024-07-07 22:24 | XMS_ITS | Encounter Summary ---
Author Name Department of Vetera ns Affairs [place]) Organization Department of Veter[place] Address [address] [place] [address] Care Team Providers Care Head Teacher Name Role Phone RONKATHARINEKYRA Primary Care Provider [...] Ervin [facility] (WNR) MEDICARE ADVANTAGE MCR(W NR) * Aug 23, 2023 [id number] ANNALISA LOYD ITE PATIENT [facility] (WNR) MEDICARE ADVANTAGE [facility] (WNR) Aug 23, 2020 [id number] [phone] ANNALISA LOYD ITE PATIENT [facility] (WNR) MEDICARE ADVANTAGE [facility](W NR) Aug 23, 2012 [id number] ANNALISA LOYD ITE PATIENT Selected Encounter This section includes the information on record at [place] for the Encounter. Date/Time Encounter Type Encounter Description Reason Provider Source Apr 06, 2024 01:00 PM OFFICE O/P EST MOD 30 MIN PRIMARY CARE/MEDICINE ICD-10-CM L89.894 Pressure ulcer of other site, stage 4 KYRA VELASQUEZ [facility] Encounter Template Text not used by MD Assessments - Encounter Diagnoses This section includes the primary and secondary diagnoses documented for the Encounter. Date/Time Primary/Secondary Diagnosis Diagnosis Name Provider Source Apr 06, 2024 02:22 PM PRIMARY Pressure ulcer of other site, stage 4 KYRA VELASQUEZ [facility] Plan of Treatment: Future Appointments (+ 6 months) and Future Tests (+/- 45 days) The Plan of Treatment section includes future care activities for the patient from all [place] [facility] This section includes future appointments and future [...] [facility] Apr 11, 2024 10:00 AM AMBULATORY - SURGERY [facility] Apr 11, 2024 10:01 AM [place] [facility] Apr 21, 2024 10:30 AM AMBULATORY - NONE [place] [facility] May 03, 2024 02:30 PM AMBULATORY [place] [facility] May 04, 2024 10:30 AM AM[place]UL[place]ORY [place]IC[place] [facility] May 04, 2024 11:00 AM AMBULATORY - [place] [facility] May 04, 2024 12:30 PM AMBULATORY - NONE [place] [facility] May 04, 2024 01:00 PM AMBULATORY - [place] [facility] May 08, 2024 02:30 PM AMBULATORY - MEDICINE [facility] May 08, 2024 02:31 PM AMBULATORY - NONE [place] [facility] May 16, 2024 10:00 AM AMBULATORY - SURGERY [facility] May 16, 2024 10:01 AM [place] [facility] May 19, 2024 08:00 AM AMBULATORY - NONE [place] [facility] May 26, 2024 10:00 AM AMBULATORY - NONE [place] [facility] Jun 07, 2024 01:00 PM AMBULATORY - SURGERY S[place] GAYLE [facility] Jun 07, 2024 03:55 PM AMBULATORY - MEDICINE REINIER GAYLE [facility] Jun 13, 2024 10:00 AM AMBULATORY - SURGERY [facility] [place] [facility] Jun 13, 2024 10:01 AM AMBULATORY - SURGERY SONYA [facility] Active, Pending, and Scheduled [...] 04:04 PM Consult Order COMMUNITY CARE-ALLERGY Cons Asset Recovery Specialist's Choice [facility] May 03, 2024 [...] Type: PLASMA Comment: , Tests performed on EverythingMe Moses SN:[id number] (405) Ordering Provider: DAVID FAM Report Released Date/Time: Nov 15, 2023 11:30 AM Reporting Lab: [facility] [address] [place] [place] [address] Performing Lab: [facility] [address] [facility] [address] UREA NITROGEN 10 mg/dL 03-16May 04, 2024 10:32 AM [facility] CREATININE WITH eGFR PANEL Specimen Type: PLASMA Comment: , Tests performed on IndaBox SN:[id number] (405) Ordering Provider: DAVID FAM Report Released Date/Time: Nov 15, 2023 11:30 AM Reporting Lab: [facility] [address] [facility] [address] Performing Lab: [facility] [address] [facility] [address] CREATININE 0.91 mg/dL 0.50-1.50 eGFR(CKD-EPI 2020) 86 [...] 12:30 PM CTA ABDOMEN AND PE LVIS: EVERTEVELYN SHIELDSE CARISA [id number] -1945 M Exm Date: MAY 04, 2024@12:30 Req Phys: VIMAL FAM Pat Loc: [facility] VASCULAR 15 M3RH (Req'g Lo Img Loc: CT SCAN (OOS) Service: [place] [address] (Case [id number] COMPLETE) CTA ABDOMEN AND PELVIS (CT Detailed) CPT:21228 Contrast Media : Non-ionic Iodinated Reason for [...] 05, 2024 Date Verified: MAY 05, 2024 Radio Aerial Installer E-Sig:/ES/NÉSTOR PASCUAL Report: CTA ABDOMEN AND PELVIS [...] REQUIRED Primary Interpreting Staff: NÉSTOR PASCUAL, RADIOLOGIST (Radio Aerial Installer) /NÉSTOR CONNER [facility] Encounter Notes: All associated encounter notes This [...] COMPLETED Clinical services were provided by this video games storywriter on Mar from the [facility] to the [facility] of care: [facility] Type of Service Delivered: pc Modality of Care: Clinical Video Telehealth (CVT) Length of Service: 60m Provisional Diagnosis: pressure sore Please see Joint Legacy Viewer (JLV) for progress note, clinical reminders, patient orders, consults, and any associated clinical data /es/ KYRA VELASQUEZ M.D INTERNAL MEDICINE, [facility] Signed: 04/06/2024 14:22 KYRA VELASQUEZ [facility]
--- OUTSIDE RECORDS SUMMARY | 2024-07-07 22:25 | XMS_ITS | Encounter Summary ---
Author Name Department of [place] Organization [place] Address [address] [place] [address] Care Team Providers Care Industrial Organizational Psychologist Name Role Phone KYRA VELASQUEZ Primary Care [...] Patient's Relationship to Policy Ervin [facility] (WNR) MEDICARE ADVANTAGE MCR(W NR) * Aug 23, 2023 [id number] ANNALISA LOYD ITE PATIENT [facility] (WNR) MEDICARE ADVANTAGE [facility] (WNR) Aug 23, 2020 [id number] [phone] ANNALISA LOYD ITE PATIENT [facility] (WNR) MEDICARE [facility](W NR) Aug 23, 2012 [id number] ANNALISA LOYD ITE PATIENT Selected Encounter This section includes the information on record at [place] for the Encounter. Date/Time Encounter Type Encounter Description Reason Provider Source May 16, 2024 10:00 AM [facility]LEHEALTH FACILITY FEE WOUND TREAT & OSTOMY CARE ICD-10-CM L89.893 Pressure ulcer of other site, stage 3 ADITI GARCIA Jannette Encounter Template Text not used by [place] Assessments - Encounter Diagnoses This section includes the primary and secondary diagnoses documented for the Encounter. Date/Time Primary/Secondary Diagnosis Diagnosis Name Provider Source May 17, 2024 08:25 AM PRIMARY Pressure ulcer of other site, stage 3 ADITI GARCIA [facility] Plan of Treatment: Future Appointments [...] [place] [facility] Jun 07, 2024 01:00 PM AM[place]UL[place]ORY [place] [facility] Jun 07, 2024 03:55 PM AMBULATORY - MEDIC[place] [facility] Jun 13, 2024 10:00 AM AMBULATORY - SURGERY [facility] Jun 13, 2024 10:01 AM AMB[place]ORY [place] [facility] Jun 15, 2024 09:00 AM AMBULATORY - NONE [place] [facility] Jun 20, 2024 11:30 AM AMBULATORY - NONE [place] [facility] Jun 21, 2024 12:30 PM AMBULATORY [place] [facility] Jul 11, 2024 10:00 AM AMBULATORY - SURGERY [facility] Jul 11, 2024 10:01 AM AMBULATORY [place] [facility] Jul 24, 2024 11:00 AM AMBULATORY - [place] [facility] Jul 27, 2024 10:00 AM AMBULATORY - NONE [place] [facility] Aug 29, 2024 10:30 AM AMBULATORY - NONE [place] [facility] Aug 29, 2024 11:15 AM [place] [place] [facility] Oct 23, 2024 01:00 PM AMBULATORY - MEDICINE Jorge A [facility] Oct 23, 2024 01:01 PM AMBULATORY - NONE [facility] [...] 04:04 PM Consult Order COMMUNITY CARE-ALLERGY Cons [facility] May 03, 2024 12:00 AM Laboratory - Chemi stry Order URORISK DIAGNOSTIC PROFILE(Q) 24H RENAL STONE KIT 24H URINE SP [facility] Jun 28, 2024 12:58 PM Consult Order PALLIATIVE CARE OUTPATIENT Cons [facility] Results: +/- 30 days of [...] - Unit Interpretation Reference Range Comment Jun 07, 2024 05:30 PM [facility] URINALYSIS W/REFLEX TO CULTURE Specimen Type: URINE No comment entered. Ordering Provider: KAREEM CERNA Report Released Date/Time: Jun 07, 2024 04:57 PM Reporting Lab: [facility] [address] [facility] [address] Performing Lab: [facility] [address] [address] URINE COLOR Light-Yellow NOT DEFINED SPECIFIC GRAVITY 1.011 1.003-1.030 UROBILINOGEN <2.0 mg/dL <2.0 URINE BILIRUBIN NEG NEG URINE KETONES NEG mg/dL NEG URINE GLUCOSE NEG mg/dL NEG PROTEIN, URINE TRACE mg/dL NEG URINE PH 5.5 5-8 WHITE BLOOD CELL/URINE 47 /[HPF] H 0-5 BACTERIA/URINE MANY NONE CALCIUM OXALATE CRYSTAL RARE NOT ESTABLISHED RED BLOOD CELL/URINE 14 /[HPF] H 0-2 CLARITY CLEAR NOT DEFINED URINE BLOOD MOD NEG NITRITE, URINE NEG NEG WBC SCREEN LG NEG MICROSCOPIC-iQ Completed May 04, 2024 10:32 AM [facility] UREA NITROGEN Specimen Type: PLASMA Comment: , Tests performed on goBramble SN:[id number] (405) Ordering Provider: AUBREY FAM Report Released Date/Time: Nov 15, 2023 11:30 AM Reporting Lab: [facility] [address] [address] Performing Lab: [facility] [address] [facility] [address] UREA NITROGEN 10 mg/dL -May 04, 2024 10:32 AM [facility] CREATININE WITH eGFR PANEL Specimen Type: PLASMA Comment: , Tests performed on goBramble SN:[id number] (405) Ordering Provider: AUBREY FAM Report Released Date/Time: Nov 15, 2023 11:30 AM Reporting Lab: [facility] [address] [address] Performing Lab: [facility] [address] [facility] [address] CREATININE 0.91 mg/dL 0.50-1.50 eGFR(CKD-EPI 2020) 86 [...] 2022 09:30 AM VA-TOBACCO USER EVERY DAY [facility] Tobacco Use History This section includes a history of the smoking, or tobacco-related health factors, that were collected on or before the date of the Encounter. The data comes from the [place] facility where the Encounter took place. Date/Time Smoking Status/Tobacco Use Comment F acility May 14, 2022 09:30 AM NH-TOBACCO USE ADVICE [facility] May 14, 2022 09:30 AM NH-TOBACCO USE COMPTOMETER OPERATOR NO [facility] May 14, 2022 09:30 AM VA-TOBACCO USE MED NO [facility] May 14, 2022 09:30 AM VA-TOBACCO USE WI 30 MIN OF WAKE UP [facility] May 14, 2022 09:30 AM VA-TOBACCO USER EVERY DAY [facility] Jun 27, 2020 09:30 AM VA-TOBACCO FORMER USER [facility] Jun 27, 2020 09:30 AM VA-TOBACCO QUIT < 1 YEAR [facility] December 28, 2018 11:23 AM VA-TOBACCO USE 30 YEARS OR MORE [facility] December 28, 2018 11:23 AM VA-TOBACCO USE ADVICE [facility] December 28, 2018 11:23 AM VA-TOBACCO USE COMPTOMETER OPERATOR NO [facility] December 28, 2018 11:23 AM VA-TOBACCO USE MED NO [facility] December 28, 2018 11:23 AM VA-TOBACCO USE WI 30 MIN OF WAKE UP [facility] December 28, 2018 11:23 AM VA-TOBACCO USER EVERY DAY [facility] Aug 10, 2016 09:05 AM CURRENT SMOKER [facility] Aug 10, 2016 09:05 AM [...] this document. The data comes from all [facility]. Date Advance Directives Provider Source Nov 18, 2017 ADVANCE DIRECTIVE RADHA FERNANDEZ [facility] Jul 08, 2017 ADVANCE DIRECTIVE DISCUSSION PRUNIMA ROJAS [facility] Radiology Reports: +/- 30 days of [...] CTA ABDOMEN AND PE LVIS: GALINA LOYD [id number] -1945 M Exm Date: MAY 04, 2024@12:30 Req Phys: GEOVANYQINGVIMAL Luna Ivonne Loc: [facility] VASCULAR 15 M3RH (Req'g Lo Img Loc: CT SCAN (OOS) [facility] [place] [address] (Case [id number] COMPLETE) CTA ABDOMEN AND PELVIS (CT Detailed) CPT:88562 Contrast Media : Non-ionic Iodinated Reason for [...] 05, 2024 Date Verified: MAY 05, 2024 Research And Development Director E-Sig:/ES/NÉSTOR PASCUAL Report: CTA ABDOMEN AND PELVIS [...] REQUIRED Primary Interpreting Staff: NÉSTOR PASCUAL, RADIOLOGIST (Research And Development Director) /NÉSTOR CONNER Tobi [facility] Pathology Reports: +/- 30 days [...] treatment facilities. Date/Time Pathology Report Provider Source Jun 07, 2024 05:30 PM LR MICROBIOLOGY RE PORT: Reporting Lab: SONYA GAYLE [facility] [CLIA# [id number]] [address] [place] [address] Accession [UID]: [id number] [[id number]] Received: Jun 07, 2024@18:38 Collection sample: URINE CLEAN CATCH Collection date: Jun 07, 2024 17:30 Site/Specimen: URINE Provider: TODD CERNA Test(s) ordered: CULTURE,URINE CLEAN CATCH..... completed: Jun 10, 2024 12:19 * BACTERIOLOGY FINAL REPORT => Jun 12, 2024 11:34 TECH CODE: [id number] CULTURE RESULTS: 1. ENTEROCOCCUS FAECALIS - Quantity: >100,000 CFU/mL Comment: VANCOMYCIN RESISTANT ENTEROCOCCUS SPECIES IDENTIFIED. MDRO NOTIFIED VIA TEAMS GROUP 06/12/24. 2. YEAST - Quantity: 50,000-99,000 CFU/mL Comment: No further workup ANTIBIOTIC SUSCEPTIBILITY TEST RESULTS: 1. ENTEROCOCCUS FAECALIS : Ampicillin.................... S Ciprofloxacin................. R Gentamicin Synergy Screen..... S LEVOFLOXACIN.................. R Linezolid..................... S Nitrofurantoin................ S Penicillin-G.................. S Vancomycin.................... R Bacteriology Remark(s): Notified Kirsten Dunn and Da Cuenca on 06/10/24 =--=--=--=--=--=--=--=--=--=--= --=--=--=--=--=--=--=--=--=--=- -=--=--=--=--=-- Performing Laboratory: Bacteriology Report Performed By: SONYA PINON [facility] [CLIA# [id number]] [address] [place] [address] [facility] Encounter Notes: All associated encounter notes This section contains the clinical notes associated to the Encounter. Date/Time Encounter Note(s) Provider Source May 17, 2024 08:23 AM TELEHEALTH NOTE: LOCAL TITLE: Telehealth Track Laying Supervisor Note STANDARD TITLE: TELEHEALTH NOTE DATE [...] always have the option to drive to [place] to see the provider in person. They [...] information was obtained as follows: Current Location: [facility] Current Address: [address] [place], [place] [address] County: [place] Emergency Contact Name: KYRAGURWINDER LUGOS Emergency Relationship: RN Emergency Number: [phone] /vivian/ ADITI GARCIA Health Track Laying Supervisor Signed: 05/17/2024 08:25 ADITI GARCIA [facility]
--- OUTSIDE RECORDS SUMMARY | 2024-07-07 22:25 | XMS_ITS | Encounter Summary ---
Author Name [place] Address [address] [place] [address] Care Team Providers Care Hazard Mitigation Officer Name Role Phone KYRA VELASQUEZ Primary [...] Name Patient's Relationship to Policy Ervin [facility] (WNR) MEDICARE ADVANTAGE MCR(W NR) * Aug 23, 2023 [id number] [phone] ANNALISA LOYD ITE PATIENT [facility] (WNR) MEDICARE ADVANTAGE [facility] (WNR) Aug 23, 2020 [id number] [phone] ANNALISA LOYD ITE PATIENT [facility] (WNR) MEDICARE [facility](W NR) Aug 23, 2012 [id number] ANNALISA LOYD ITE PATIENT Selected Encounter [...] activities for the patient from all [place] [facility]. This section includes future appointments [...] [place] [facility] Jun 07, 2024 03:55 PM [place]BUL[place]ORY [place] [facility] Jun 13, 2024 10:00 AM AMBULATORY - SURGERY [place] [facility] Jun 13, 2024 10:01 AM [place] [facility] Jun 15, 2024 09:00 AM AMBULATORY - NONE [place] [facility] Jun 20, 2024 11:30 AM AMBULATORY - NONE [place] [facility] Jun 21, 2024 12:30 PM AMBULATORY - [place]GERY [place] [facility] Jul 11, 2024 10:00 AM AMBULATORY - SURGERY [facility] Jul 11, 2024 10:01 AM AMBULATORY - [place]GERY [place] [facility] Jul 24, 2024 11:00 AM AMBULATORY - [place]GERY [place] [facility] Jul 27, 2024 10:00 AM AMBULATORY - NONE [place] [facility] Aug 29, 2024 10:30 AM AMBULATORY - NONE [place] [facility] Aug 29, 2024 11:15 AM AMBULATORY - [place]GERY [place] [facility] Oct 23, 2024 01:00 PM AMBULATORY - MEDICINE [facility] Oct 23, 2024 01:01 PM AMBULATORY - NONE [place] [facility] Active, Pending, and [...] 04:04 PM Consult Order COMMUNITY CARE-ALLERGY Cons Hims Manager's Choice [facility] May 03, 2024 12:00 AM Laboratory - Chemi stry Order URORISK DIAGNOSTIC PROFILE(Q) 24H RENAL STONE KIT 24H URINE SP [facility] Lab Results: +/- 30 days [...] Range Comment Jun 07, 2024 05:30 PM [facility] URINALYSIS W/REFLEX TO CULTURE Specimen Type: URINE No comment entered. Ordering Provider: KAREEM CERNA Report Released Date/Time: Jun 07, 2024 04:57 PM Reporting Lab: [facility] [address] [facility] [address] Performing Lab: [facility] [address] [address] URINE COLOR Light-Yellow NOT DEFINED SPECIFIC GRAVITY [...] MICROSCOPIC-iQ Completed May 04, 2024 10:32 AM [facility] UREA NITROGEN Specimen Type: PLASMA Comment: , Tests performed on [employer] SN:[id number] ([id number]) Ordering Provider: AUBREY FAM Report Released Date/Time: Nov 15, 2023 11:30 AM Reporting Lab: [facility] [address] [address] Performing Lab: [facility] [address] [address] UREA NITROGEN 10 mg/dL 03-16May 04, 2024 10:32 AM [facility] CREATININE WITH eGFR PANEL Specimen Type: PLASMA Comment: , Tests performed on [place] [employer] Specialist Lopes SN:[id number] ([id number]) Ordering Provider: AUBREY FAM Report Released Date/Time: Nov 15, 2023 11:30 AM Reporting Lab: [facility] [address] [facility] [facility] [address] Performing Lab: [facility] [address] [address] CREATININE 0.91 mg/dL 0.50-1.50 eGFR(CKD-EPI 2020) 86 [...] Feb 21, 2024 10:15 AM VA-TOBACCO USE SAND TECHNOLOGIST NO [facility] Feb 21, 2024 [...] TOBACCO U SE CURRENT NRT DECLINE SONYA [facility] Jul 01, 2021 02:41 PM CURRENT SMOKER REINIER GAYLE [facility] Dec 08, 2020 08:45 PM VA-TOBACCO USER EVERY DAY SONYA [facility] Dec 08, [...] CTA ABDOMEN AND PE LVIS: GALINA LOYD [id number] -1945 M Exm Date: MAY 04, 2024@12:30 Req Phys: VIMAL FAM Pat Loc: [facility] VASCULAR 15 M3RH (Req'g Lo Img Loc: CT SCAN (OOS) Service: Unknown [facility] [place] [address] (Case [id number] COMPLETE) CTA ABDOMEN AND PELVIS (CT Detailed) CPT:39566 Contrast Media : Non-ionic Iodinated Reason for [...] 05, 2024 Date Verified: MAY 05, 2024 School Library Media Specialist E-Sig:/ES/NÉSTOR PASCUAL Report: CTA ABDOMEN AND [...] REQUIRED Primary Interpreting Staff: NÉSTOR PASCUAL, RADIOLOGIST (School Library Media Specialist) /NÉSTOR CONNER T[facility] Pathology Reports: +/- 30 days of the [...] PM LR MICROBIOLOGY RE PORT: Reporting Lab: [facility] [CLIA# [id number]] [address] [place] [address] Accession [UID]: [id number] [[id number]] Received: Jun 07, 2024@18:38 Collection sample: URINE CLEAN CATCH Collection date: Jun 07, 2024 17:30 Site/Specimen: URINE Provider: TODD CERNA Test(s) ordered: CULTURE,URINE CLEAN CATCH..... completed: Jun 10, 2024 12:19 * BACTERIOLOGY FINAL REPORT => Jun 12, 2024 11:34 TECH CODE: [id number] CULTURE RESULTS: 1. ENTEROCOCCUS FAECALIS - Quantity: >100,000 CFU/mL Comment: VANCOMYCIN RESISTANT ENTEROCOCCUS SPECIES IDENTIFIED. MDRO NOTIFIED VIA TEAMS GROUP 06/12/24. 2. YEAST - Quantity: 50,000-99,000 CFU/mL Comment: No further workup ANTIBIOTIC SUSCEPTIBILITY TEST RESULTS: 1. ENTEROCOCCUS FAECALIS : Ampicillin.................... S Ciprofloxacin................. R Gentamicin Synergy Screen..... S LEVOFLOXACIN.................. R Linezolid..................... S Nitrofurantoin................ S Penicillin-G.................. S Vancomycin.................... R Bacteriology Remark(s): Notified D Kirsten Cerna and Da Cuenca on 06/10/24 =--=--=--=--=--=--=--=--=--=--= --=--=--=--=--=--=--=--=--=--=- -=--=--=--=--=-- Performing Laboratory: Bacteriology Report Performed By: [facility] [CLIA# [id number]] [address] [place] [address] [facility] Encounter Notes: All associated [...] 100%SC and recently had rehabiltatibe care at [facility] and came home with two wounds on his buttocks that were not present at time of admission. The daughter stated that manager sales support noted the wounds but they were not documented. Father has now been getting wound care form [facility] and is doing much better. Daughter is concerned for 's spouse, as she is Ethiopian and believes it is her full job [...] and Plan: VELMA recommended that the nurse pillowcase sewer do assessment to determine care needs that can be ordered by [facility] for [facility]-home care. SW will determine next week if the pillowcase sewer is avaialable or if the back-up pillowcase sewer needs to be signed to case for ongoing care needs. SW will also provide ombudman conact for issues that family had with care provided at recent assisted. DAughter was appreciative of time and wants father to get codi without total burden being placed on her mother( the veterans spouse). /vivian/ PILAR THAYER Physiotherapist'S Assistant Signed: 05/12/2024 14:20 Receipt Acknowledged By: 05/15/2024 07:25 /es/ PILAR DAVIS OC
--- OUTSIDE RECORDS SUMMARY | 2024-07-07 22:25 | XMS_ITS | Encounter Summary ---
Author Name [place] Address [address] [place] [address] Care Team Providers Care Debate Director Name Role Phone RON KYRA Primary [...] ADVANTAGE MCR(W NR) * Aug 23, 2023 [id number] [phone] ANNALISA LOYD ITE PATIENT [facility] (WNR) MEDICARE ADVANTAGE [facility] (WNR) Aug 23, 2020 [id number] [phone] ANNALISA LOYD ITE PATIENT [facility] (WNR) MEDICARE ADVANTAGE [facility](W NR) Aug 23, 2012 [id number] [phone] ANNALISA LOYD PATIENT Selected Encounter This [...] IHJannette Encounter Template Text not used by [place] Assessments - Encounter Diagnoses This section includes the primary and secondary diagnoses documented for the Encounter. Date/Time Primary/Secondary Diagnosis Diagnosis Name Provider Source May 16, 2024 10:44 AM PRIMARY Pressr ulcer of contig site of back, buttock and hip, stg 3 GRACIE QUINTERO SONYA [facility] May 16, 2024 10:44 AM SECONDARY Pressure ulcer of other site, stage 3 GRACIE QUINTERO [place] [facility] Plan of Treatment: Future Appointments (+ [...] [place] [facility] May 26, 2024 10:00 AM AMBULATORY - NONE [place] [facility] Jun 07, 2024 01:00 PM AMB[place]ORY - [place] [facility] Jun 07, 2024 03:55 PM [place]ORY - [place]IC[place] [facility] Jun 13, 2024 10:00 AM AMBULATORY - SURGERY [facility] Jun 13, 2024 10:01 AM [place]ORY - [place] [facility] Jun 15, 2024 09:00 AM AMBULATORY - [place]ONE [place] [facility] Jun 20, 2024 11:30 AM AMBULATORY - NONE [place] [facility] Jun 21, 2024 12:30 PM AMB[place]ORY - [place] [facility] Jul 11, 2024 10:00 AM AMBULATORY - SURGERY [facility] Jul 11, 2024 10:01 AM AMB[place]ORY - [place] [facility] Jul 24, 2024 11:00 AM AMB[place]ORY - [place] [facility] Jul 27, 2024 10:00 AM AMBULATORY - NONE [place] [facility] Aug 29, 2024 10:30 AM AMBULATORY - NONE [place] [facility] Aug 29, 2024 11:15 AM AMBULATORY - SURGERY [place] [facility] Oct 23, 2024 01:00 PM AMBULATORY - MED[facility] Oct 23, 2024 01:01 PM AMBULATORY - NONE [place] [facility] Active, Pending, and Scheduled [...] 04:04 PM Consult Order COMMUNITY CARE-ALLERGY Cons Owner Consulting Engineer's Choice [facility] May 03, 2024 12:00 AM Laboratory - Chemi stry Order URORISK DIAGNOSTIC PROFILE(Q) 24H RENAL STONE KIT 24H URINE SP [facility] Jun 28, 2024 12:58 PM Consult Order PALLIATIVE CARE OUTPATIENT Cons Owner Consulting Engineer's [facility] Lab Results: +/- 30 days [...] Range Comment Jun 07, 2024 05:30 PM [facility] URINALYSIS W/REFLEX TO CULTURE Specimen Type: URINE No comment entered. Ordering Provider: KAREEM CERNA Report Released Date/Time: Jun 07, 2024 04:57 PM Reporting Lab: [facility] [address] [facility] [address] Performing Lab: [facility] [address] [facility] [address] URINE COLOR Light-Yellow NOT DEFINED SPECIFIC GRAVITY [...] MICROSCOPIC-iQ Completed May 04, 2024 10:32 AM [facility] UREA NITROGEN Specimen Type: PLASMA Comment: , Tests performed on [employer] SN:[id number] ([id number]) Ordering Provider: AUBREY FAM Report Released Date/Time: Nov 15, 2023 11:30 AM Reporting Lab: [facility] [address] [facility] [address] Performing Lab: [facility] [address] [facility] [address] UREA NITROGEN 10 mg/dL 7-May 04, 2024 10:32 AM [facility] CREATININE WITH eGFR PANEL Specimen Type: PLASMA Comment: , Tests performed on [employer] SN:[id number] ([id number]) Ordering Provider: AUBREY FAM Report Released Date/Time: Nov 15, 2023 11:30 AM Reporting Lab: [facility] [address] [facility] [address] Performing Lab: [facility] [address] [facility] [address] CREATININE 0.91 mg/dL 0.50-1.50 eGFR(CKD-EPI 2020) 86 [...] place. Date/Time Current Smoking Status Comment Facil laury Feb 21, 2024 10:15 AM VA-TOBACCO USER [...] Feb 21, 2024 10:15 AM VA-TOBACCO USE DIRECTOR OF HEAD START NO [facility] Feb 21, 2024 [...] Jul 01, 2021 02:41 PM CURRENT SMOKER [facility] Dec 08, 2020 08:45 [...] CTA ABDOMEN AND PE LVIS: GALINA LOYD [id number] -1945 M Exm Date: MAY 04, 2024@12:30 Req Phys: VIMAL FAM Pat Loc: [facility] VASCULAR 15 M3RH (Req'g Lo Img Loc: CT SCAN (OOS) Service: Unknown [place] [facility] [place] [address] (Case [id number] COMPLETE) CTA ABDOMEN AND PELVIS (CT Detailed) CPT:18031 Contrast Media : Non-ionic Iodinated Reason for [...] 05, 2024 Date Verified: MAY 05, 2024 Juvenile Detention Officer E-Sig:/ES/NÉSTOR PASCUAL Report: CTA ABDOMEN AND [...] IMMEDIATE ATTENTION REQUIRED Primary Interpreting Staff: NÉSTOR PASCUAL RADIOLOGIST (Juvenile Detention Officer) /NÉSTOR CONNER [facility] Pathology Reports: +/- 30 days [...] MICROBIOLOGY RE PORT: Reporting Lab: [facility] [CLIA# [id number]] [address] [place] [facility] [place] [address] Accession [UID]: [id number] [[id number]] Received: Jun 07, 2024@18:38 Collection sample: URINE CLEAN CATCH Collection date: Jun 07, 2024 17:30 Site/Specimen: URINE Provider: TODD CERNA Test(s) ordered: CULTURE,URINE CLEAN CATCH..... completed: Jun 10, 2024 12:19 * BACTERIOLOGY FINAL REPORT => Jun 12, 2024 11:34 TECH CODE: [id number] CULTURE RESULTS: 1. ENTEROCOCCUS FAECALIS - Quantity: [...] Laboratory: Bacteriology Report Performed By: [facility] [CLIA# [id number]] [address] [place] [place] [address] [facility] Encounter Notes: All associated [...] Injury due to chemical exposure (SNOMED CT [id number]) 69 in [175.3 cm] (04/06/2024 12:44) 118 lb [53.52 kg] (04/06/2024 12:44) BODY MASS INDEX - APR 06, 2024@12:44:02 17.5 NARRATIVE: 78 yo male with multiple medical problems including cva 2019, sdh, history of seizures, nephrolithiasis, h/o bl ureteral stents s/p removal, htn, tobacco use, follicular lymphoma, AAA, thoracic aortic aneurysm, etoh dependence in remission seen via out of [facility] for assessment of pressure [...] min /vivian/ DANIELLE SOMERSN, RN, CWON Signed: 05/16/2024 10:44 DANIELLE QUINTERO [facility]
--- OUTSIDE RECORDS SUMMARY | 2024-07-07 22:25 | XMS_ITS ---
Author Name Department [place] Organization [place] Address [address] [place] [address] Care Team Providers Care High School Vice Principal Name Role Phone KYAR VELASQUEZ Primary Care Provider Unavailabl e Insurance [...] Ervin [facility] (WNR) MEDICARE [facility](W NR) * Aug 23, 2023 [id number] ANNALISA LOYD ITE PATIENT [facility] MCR (WNR) MEDICARE ADVANTAGE [facility] (WNR) Aug 23, 2020 [id number] [phone] ANNALISA LOYD ITE PATIENT [facility] (WNR) MEDICARE ADVANTAGE [facility](W NR) Aug 23, 2012 [id number] ANNALISA LOYD ITJannette PATIENT Selected Encounter [...] AM AMBUL[place]ORY [place] [facility] May 19, 2024 08:00 AM AMBULATORY - NONE [place] [facility] May 26, 2024 10:00 AM AMBULATORY - NONE [place] [facility] Jun 07, 2024 01:00 PM AMBUL[place]ORY - [place] [facility] Jun 07, 2024 03:55 PM AMBULATORY - [place]IC[place] [facility] Jun 13, 2024 10:00 AM AMBULATORY - SURGERY [facility] Jun 13, 2024 10:01 AM AMBUL[place] [facility] Jun 15, 2024 09:00 AM AMBULATORY - NONE [place] [facility] Jun 20, 2024 11:30 AM AMBULATORY - NONE [place] [facility] Jun 21, 2024 12:30 PM AMBUL[place]ORY - [place] [facility] Jul 11, 2024 10:00 AM AMBULATORY - SURGERY [facility] Jul 11, 2024 10:01 AM AMBUL[place] [facility] Jul 24, 2024 11:00 AM AMBULATORY - [place]GERY [place] [facility] Jul 27, 2024 10:00 AM AMBULATORY - NONE [place] [facility] Aug 29, 2024 10:30 AM AMBULATORY - NONE [place] [facility] Aug 29, 2024 11:15 AM AMBULATORY - [place] [facility] Oct 23, 2024 01:00 PM AMBULATORY - MEDICINE [facility] Oct 23, 2024 01:01 PM AMBULATORY - NONE SON[facility] Active, Pending, and Scheduled [...] 04:04 PM Consult Order COMMUNITY CARE-ALLERGY Cons Land Development Project Manager's Choice [facility] May 03, 2024 [...] Range Comment Jun 07, 2024 05:30 PM [facility] URINALYSIS W/REFLEX TO CULTURE Specimen Type: URINE No comment entered. Ordering Provider: KAREEM CERNA Report Released Date/Time: Jun 07, 2024 04:57 PM Reporting Lab: [facility] [address] [facility] [address] Performing Lab: [facility] [address] [facility] [address] URINE COLOR Light-Yellow NOT DEFINED SPECIFIC GRAVITY [...] MICROSCOPIC-iQ Completed May 04, 2024 10:32 AM [facility] UREA NITROGEN Specimen Type: PLASMA Comment: , Tests performed on [employer] Lopes SN:[id number] (405) Ordering Provider: AUBREY CHONG Report Released Date/Time: Nov 15, 2023 11:30 AM Reporting Lab: [facility] [address] [facility] [address] Performing Lab: [facility] [address] [facility] [address] UREA NITROGEN 10 mg/dL 03-16May 04, 2024 10:32 AM [facility] CREATININE WITH eGFR PANEL Specimen Type: PLASMA Comment: , Tests performed on [place] Assessment Counselor Lopes SN:[id number] (405) Ordering Provider: AUBREY CHONG Report Released Date/Time: Nov 15, 2023 11:30 AM Reporting [facility]: [facility] [address] [facility] [address] Performing [facility]: [facility] [address] [facility] [address] CREATININE 0.91 mg/dL 0.50-1.50 eGFR(CKD-EPI 2020) 86 [...] VA-TOBACCO USE WI 30 MIN OF WAKEUP [facility] Tobacco Use History This section includes a history of the smoking, or tobacco-related health factors, that were collected on or before the date of the Encounter. The data comes from the [place] facility where the Encounter took place. 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 NO [facility] Feb 21, 2024 10:15 AM VA-TOBACCO USE MED NO [facility] Feb 21, 2024 10:15 AM VA-TOBACCO USE WI 30 MIN OF WAKEUP [facility] Feb 21, 2024 10:15 AM VA-TOBACCO USER EVERY DAY SON[facility] Jul 17, 2021 02:27 PM CURRENT SMOKER REINIER GAYLE [facility] Jul 01, 2021 08:55 PM VA-VAAES TOBACCO U SE CURRENT NRT DECLINE [facility] Jul 01, 2021 02:41 PM CURRENT SMOKER REINIER GAYLE [facility] Dec 08, 2020 08:45 PM [...] Source Nov 18, 2017 ADVANCE DIRECTIVE RADHA FERNANDZE [facility] Jul 08, 2017 ADVANCE [...] CTA ABDOMEN AND PE LVIS: GALINA LOYD [id number] -1945 M Exm Date: MAY 04, 2024@12:30 Req Phys: VIMAL CHONG Pat Loc: [facility] VASCULAR 15 M3RH (Req'g Lo Img Loc: CT SCAN (OOS) Service: Unknown [facility] [place] [address] (Case [id number] COMPLETE) CTA ABDOMEN AND PELVIS (CT Detailed) CPT:26484 Contrast Media : Non-ionic Iodinated Reason for [...] 05, 2024 Date Verified: MAY 05, 2024 Beer Brewer E-Sig:/ES/NÉSTOR PASCUAL Report: CTA ABDOMEN AND PELVIS [...] REQUIRED Primary Interpreting Staff: NÉSTOR PASCUAL, RADIOLOGIST (Beer Brewer) /NÉSTOR CONNER [facility] Pathology Reports: +/- 30 [...] comes from all [place] treatment facilities. Date/Time Pathology Report Provider Source Jun 07, 2024 05:30 PM LR MICROBIOLOGY RE PORT: Reporting Lab: [facility] [CLIA# [id number]] [address] [place] [address] Accession [UID]: [id number] [[id number]] Received: Jun 07, 2024@18:38 Collection sample: URINE CLEAN CATCH Collection date: Jun 07, 2024 17:30 Site/Specimen: URINE Provider: TODD CERNA Test(s) ordered: CULTURE,URINE CLEAN CATCH..... completed: Jun 10, 2024 12:19 * BACTERIOLOGY FINAL REPORT => Jun 12, 2024 11:34 TECH CODE: [id number] CULTURE RESULTS: 1. ENTEROCOCCUS FAECALIS - Quantity: >100,000 CFU/mL Comment: VANCOMYCIN RESISTANT ENTEROCOCCUS SPECIES IDENTIFIED. MDRO NOTIFIED VIA TEAMS GROUP 06/12/24. 2. YEAST - Quantity: 50,000-99,000 CFU/mL Comment: No further workup ANTIBIOTIC SUSCEPTIBILITY TEST RESULTS: 1. ENTEROCOCCUS FAECALIS : Ampicillin.................... S Ciprofloxacin................. R Gentamicin Synergy Screen..... S LEVOFLOXACIN.................. R Linezolid..................... S Nitrofurantoin................ S Penicillin-G.................. S Vancomycin.................... R Bacteriology Remark(s): Notified D Abram, Kirsten Chong and Da Cuenca on 06/10/24 =--=--=--=--=--=--=--=--=--=--= --=--=--=--=--=--=--=--=--=--=- -=--=--=--=--=-- Performing Laboratory: Bacteriology Report Performed By: [facility] [CLIA# [id number]] [address] [place] [address] [facility] Encounter Notes: All associated [...] Bertha regarding previous messages left for Nara Dennis She is looking for snf care options Help at home for her father. she mentioned she has called several times and left numerous voice mails over the last 5 weeks. Please call back at [phone] [facility] /es/ KATIANA MARTINEZ MSA Signed: 05/12/2024 09:52 Receipt Acknowledged By: 05/12/2024 13:31 /es/ NARA THAYER Adjunct Instructor * AWAITING SIGNATURE * KELI SHEFFIELD 05/12/2024 10:48 /es/ EFRAÍN VALIENTE for OJ MAJORLIMed 05/12/2024 14:55 /es/ MODE ORTIZ Supervisory Adjunct Instructor KATIANA MARTINEZ [facility]
--- OUTSIDE RECORDS SUMMARY | 2024-07-07 22:25 | XMS_ITS | Encounter Summary ---
Author Name [facility] [place] Address [address] [place] [address] Care Team Providers Care Client Success Specialist Name Role Phone KYRA VELASQUEZ Primary [...] ADVANTAGE MCR(W NR) * Aug 23, 2023 [id number] [phone] ANNALISA LOYD ITE PATIENT [facility] (WNR) MEDICARE ADVANTAGE [facility] (WNR) Aug 23, 2020 [id number] [phone] ANNALISA LOYD ITE PATIENT [facility] (WNR) MEDICARE [facility](W NR) Aug 23, 2012 [id number] ANNALISA LOYD ITE PATIENT Selected Encounter This section includes the information on record at [place] for the Encounter. Date/Time Encounter Type Encounter Description Reason Provider Source May 08, 2024 02:30 PM TELEHEALTH FACILITY FEE NUTRITION/DIETETI CS-INDIVIDUAL ICD-10-CM Z71.3 Dietary counseling and surveillance ADITI GARCIA Jannette Encounter Template Text not used by [facility] Assessments - Encounter Diagnoses This section includes the primary and secondary diagnoses documented for the Encounter. Date/Time Primary/Secondary Diagnosis Diagnosis Name Provider Source May 09, 2024 09:16 AM PRIMARY Dietary counseling and surveillance ADITI GARCIA [facility] Plan of Treatment: Future Appointments (+ [...] AMBULATORY - [place] [facility] May 19, 2024 08:00 AM AMBULATORY - NONE [place] [facility] May 26, 2024 10:00 AM AMBULATORY - NONE [place] [facility] Jun 07, 2024 01:00 PM AMB[place]ORY [place] [facility] Jun 07, 2024 03:55 PM AMBULATORY - [place]IC[place] [facility] Jun 13, 2024 10:00 AM AMBULATORY - SURGERY [facility] Jun 13, 2024 10:01 AM [place] [facility] Jun 15, 2024 09:00 AM AM[place]ULATORY - [place]ONE [place] [facility] Jun 20, 2024 11:30 AM AMBULATORY - NONE [place] [facility] Jun 21, 2024 12:30 PM AMB[place]ORY [place] [facility] Jul 11, 2024 10:00 AM AMBULATORY - SURGERY [facility] Jul 11, 2024 10:01 AM [place] [facility] Jul 24, 2024 11:00 AM AMB[place]ORY - [place] [facility] Jul 27, 2024 10:00 AM AMBULATORY - NONE [place] [facility] Aug 29, 2024 10:30 AM AMBULATORY - NONE SONYA LAI [facility] Aug 29, 2024 11:15 AM AMBULATORY - SURGERY [facility] Oct 23, 2024 01:00 PM AMBULATORY - MEDICINE [facility] Oct 23, 2024 01:01 PM AMBULATORY - NONE SONYA LAI [facility] Active, Pending, and Scheduled Orders This [...] 04:04 PM Consult Order COMMUNITY CARE-ALLERGY Cons Race Starter's Choice [facility] May 03, 2024 12:00 AM Laboratory - Chemi stry Order URORISK DIAGNOSTIC PROFILE(Q) 24H RENAL STONE KIT 24H URINE SP [facility] Lab Results: +/- [...] Range Comment Jun 07, 2024 05:30 PM [facility] URINALYSIS W/REFLEX TO CULTURE Specimen Type: URINE No comment entered. Ordering Provider: KAREEM CERNA Report Released Date/Time: Jun 07, 2024 04:57 PM Reporting Lab: [facility] [address] [facility] [facility] [address] Performing Lab: [facility] [address] [address] URINE COLOR Light-Yellow NOT DEFINED SPECIFIC GRAVITY [...] MICROSCOPIC-iQ Completed May 04, 2024 10:32 AM [facility] UREA NITROGEN Specimen Type: PLASMA Comment: , Tests performed on [place] [employer] SN:[id number] ([id number]) Ordering Provider: AUBREY FAM Report Released Date/Time: Nov 15, 2023 11:30 AM Reporting Lab: [facility] [address] [facility] [facility] [address] Performing Lab: [facility] [address] [address] UREA NITROGEN 10 mg/dL 03-16May 04, 2024 10:32 AM [facility] CREATININE WITH eGFR PANEL Specimen Type: PLASMA Comment: , Tests performed on [employer] book SN:[id number] ([id number]) Ordering Provider: AUBREY FAM Report Released Date/Time: Nov 15, 2023 11:30 AM Reporting Lab: [facility] [address] [facility] [facility] [address] Performing Lab: [facility] [address] [facility] [address] CREATININE 0.91 mg/dL 0.50-1.50 eGFR(CKD-EPI 2020) 86 Vital Signs: All taken on the encounter date This section contains inpatient and outpatient Vital Signs collected on the date of the Encounter. Date/Time Temperature Pulse Blood Pressure Respiratory Rate SP02 Pain Height Weight Body Mass Index Source May 08, 2024 02:31 PM 121.7 18 [facility] Social History: Smoking Status [...] schaeffer May 14, 2022 09:30 AM VA-TOBACCO USER EVERY DAY [facility] Tobacco Use History This section includes a history of the smoking, or tobacco-related health factors, that were collected on or before the date of the Encounter. The data comes from the [place] facility where the Encounter took place. Date/Time Smoking Status/Tobacco Use Comment F acility May 14, 2022 09:30 AM VA-TOBACCO USE ADVICE [facility] May 14, 2022 09:30 AM VA-TOBACCO USE WOOL WASHING MACHINE OPERATOR NO [facility] May 14, 2022 09:30 AM VA-TOBACCO USE MED NO [facility] May 14, 2022 09:30 AM VA-TOBACCO USE WI 30 MIN OF WAKE UP [facility] May 14, 2022 09:30 AM VA-TOBACCO USER EVERY DAY [facility] Jun 27, 2020 09:30 AM VA-TOBACCO FORMER USER [facility] Jun 27, 2020 09:30 AM VA-TOBACCO QUIT < 1 YEAR [facility] December 28, 2018 11:23 AM VA-TOBACCO USE 30 YEARS OR MORE [facility] December 28, 2018 11:23 AM VA-TOBACCO USE ADVICE [facility] December 28, 2018 11:23 AM VA-TOBACCO USE WOOL WASHING MACHINE OPERATOR NO [facility] December 28, 2018 11:23 AM VA-TOBACCO USE MED NO [facility] December 28, 2018 11:23 AM VA-TOBACCO USE WI 30 MIN OF WAKE UP [facility] December 28, 2018 11:23 AM VA-TOBACCO USER EVERY DAY [facility] Aug 10, 2016 09:05 AM CURRENT SMOKER [facility] Aug 10, 2016 [...] 2017 ADVANCE DIRECTIVE RADHA FERNANDEZ [facility] Jul 08, 2017 ADVANCE DIRECTIVE DISCUSSION PURNIMA ROJAS [facility] Radiology Reports: +/- 30 days of [...] CTA ABDOMEN AND PE LVIS: GALINA LOYD [id number] -1945 M Exm Date: MAY 04, 2024@12:30 Req Phys: VIMAL FAM Loc: [facility] VASCULAR 15 M3RH (Req'g Lo Img Loc: CT SCAN (OOS) Service: [place] [address] (Case [id number] COMPLETE) CTA ABDOMEN AND PELVIS (CT Detailed) CPT:76232 Contrast Media : Non-ionic Iodinated Reason for [...] 05, 2024 Date Verified: MAY 05, 2024 Drywall Taper Helper E-Sig:/ES/NÉSTOR PASCUAL Report: CTA ABDOMEN AND PELVIS [...] REQUIRED Primary Interpreting Staff: NÉSTOR PASCUAL, RADIOLOGIST (Drywall Taper Helper) /NÉSTOR CONNER [facility] Pathology Reports: +/- 30 days of [...] PM LR MICROBIOLOGY RE PORT: Reporting Lab: [facility] [CLIA# [id number]] [address] [facility] [place] [address] Accession [UID]: [id number] [[id number]] Received: Jun 07, 2024@18:38 Collection sample: URINE CLEAN CATCH Collection date: Jun 07, 2024 17:30 Site/Specimen: URINE Provider: TODD CERNA Test(s) ordered: CULTURE,URINE CLEAN CATCH..... completed: Jun 10, 2024 12:19 * BACTERIOLOGY FINAL REPORT => Jun 12, 2024 11:34 TECH CODE: [id number] CULTURE RESULTS: 1. ENTEROCOCCUS FAECALIS - Quantity: [...] -=--=--=--=--=-- Performing Laboratory: Bacteriology Report Performed By: [facility] [CLIA# [id number]] [address] [place] [address] [facility] Encounter Notes: All associated encounter notes This section contains the clinical notes associated to the Encounter. Date/Time Encounter Note(s) Provider Source May 08, 2024 02:32 PM TELEHEALTH NOTE: LOCAL TITLE: Telehealth Geology Faculty Member Note STANDARD TITLE: TELEHEALTH NOTE DATE OF [...] always have the option to drive to [place] to see the provider in person. They [...] through an in-person visit at the nearest [place] clinical site offering the requested service, and the patient's right of refusal, at any time, for any Telehealth. Emergency contact information was obtained as follows: Current Location: [facility] Current Address: [address] [place], [place] [id number] County: [place] Emergency Contact Name: ADITI GARCIA Emergency Relationship: TCT Emergency Number: [phone] /es/ ADITI GARCIA Health Geology Faculty Member Signed: 05/09/2024 09:16 [facility]
--- OUTSIDE RECORDS SUMMARY | 2024-07-07 22:25 | XMS_ITS ---
Author Name [facility] [place] Organization [place] Address [address] [place] [address] Care Team Providers Care Fixer Boarding Room Name Role Phone KYRA VELASQUEZ Primary [...] Ervin's Name Patient's Relationship to Policy Ervin [facility] (WNR) MEDICARE ADVANTAGE MCR(W NR) * Aug 23, 2023 [id number] [phone] ANNALISA EDUARDO ITE PATIENT [facility] (WNR) MEDICARE ADVANTAGE [facility] (WNR) Aug 23, 2020 [id number] [phone] ANNALISA EDUARDO ITE PATIENT [facility] (WNR) MEDICARE [facility](W NR) Aug 23, 2012 [id number] ANNALISA EDUARDO ITE PATIENT Selected Encounter This section includes the information on record at [place] for the Encounter. Date/Time Encounter Type Encounter Description Reason Provider Source May 17, 2024 12:41 PM Outpatient Encounter TELEPHONE CASE MANAGEMENT CRISTINE COCHRAN IHE Encounter Template Text not used by [...] [place] [facility] Jun 07, 2024 01:00 PM AM[place]ORY [place] [facility] Jun 07, 2024 03:55 PM AMBULATORY - MEDICINE [facility] Jannette [place]AY[place] T [facility] Jun 13, 2024 10:00 AM AMBULATORY - SURGERY [facility] Jun 13, 2024 10:01 AM [place] [facility] Jun 15, 2024 09:00 AM AMBULATORY - NONE [place] [facility] Jun 20, 2024 11:30 AM AMBULATORY - NONE [place] [facility] Jun 21, 2024 12:30 PM [place]ORY [place] [facility] Jul 11, 2024 10:00 AM AMBULATORY - SURGERY [facility] Jul 11, 2024 10:01 AM AMBUL[place]ORY [place] [facility] Jul 24, 2024 11:00 AM AMBULATORY - [place]GERY [place] [facility] Jul 27, 2024 10:00 AM AMBULATORY - NONE [place] [facility] Aug 29, 2024 10:30 AM AMBULATORY - NONE [place] [facility] Aug 29, 2024 11:15 AM AMBUL[place]ORY - [place] [facility] Oct 23, 2024 01:00 PM AMBULATORY - MEDICINE [facility] Oct 23, 2024 01:01 PM AMBULATORY - NONE [place] [facility] Active, Pending, and Scheduled Orders [...] 04:04 PM Consult Order COMMUNITY CARE-ALLERGY Cons Stage Setting Painter Apprentice's Choice [facility] May 03, 2024 12:00 AM Laboratory - Chemi stry Order URORISK DIAGNOSTIC PROFILE(Q) 24H RENAL STONE KIT 24H URINE SP [facility] Jun 28, 2024 12:58 PM Consult Order PALLIATIVE CARE OUTPATIENT Cons Stage Setting Painter Apprentice's [facility] Lab Results: +/- 30 days of [...] Range Comment Jun 07, 2024 05:30 PM [facility] URINALYSIS W/REFLEX TO CULTURE Specimen Type: URINE No comment entered. Ordering Provider: KAREEM VALVERDE Report Released Date/Time: Jun 07, 2024 04:57 PM Reporting Lab: [facility] [address] [facility] [address] Performing Lab: [facility] [address] [facility] [address] URINE COLOR Light-Yellow NOT DEFINED SPECIFIC GRAVITY [...] MICROSCOPIC-iQ Completed May 04, 2024 10:32 AM [facility] UREA NITROGEN Specimen Type: PLASMA Comment: , Tests performed on [employer] SN:[id number] (405) Ordering Provider: AUBREY FAM Report Released Date/Time: Nov 15, 2023 11:30 AM Reporting Lab: [facility] [address] [facility] [address] Performing Lab: [facility] [address] [facility] [address] UREA NITROGEN 10 mg/dL 03-16May 04, 2024 10:32 AM [facility] CREATININE WITH eGFR PANEL Specimen Type: PLASMA Comment: , Tests performed on [employer] SN:[id number] (405) Ordering Provider: AUBREY FAM Report Released Date/Time: Nov 15, 2023 11:30 AM Reporting Lab: [facility] [address] [facility] [address] Performing Lab: [facility] [address] [facility] [address] CREATININE 0.91 mg/dL 0.50-1.50 eGFR(CKD-EPI 2020) 86 [...] Feb 21, 2024 10:15 AM VA-TOBACCO USE PROCESS HELPER NO [facility] Feb 21, 2024 10:15 AM VA-TOBACCO USE MED NO [facility] Feb 21, 2024 10:15 AM VA-TOBACCO USE WI 30 MIN OF WAKEUP [facility] Feb 21, 2024 10:15 AM VA-TOBACCO USER EVERY DAY [facility] Jul 17, 2021 02:27 PM CURRENT SMOKER [place] [facility] Jul 01, 2021 08:55 PM VA-VAAES [...] CTA ABDOMEN AND PE LVIS: GALINA EDUARDO [id number] -1945 M Exm Date: MAY 04, 2024@12:30 Req Phys: VIMAL FAM Pat Loc: [facility] VASCULAR 15 M3RH (Req'g Lo Img Loc: CT SCAN (OOS) Service: Unknown [facility] [place] [address] (Case [id number] COMPLETE) CTA ABDOMEN AND PELVIS (CT Detailed) CPT:47892 Contrast Media : Non-ionic Iodinated Reason for [...] 05, 2024 Date Verified: MAY 05, 2024 Business Objects Architect E-Sig:/ES/NÉSTOR PASCUAL Report: CTA ABDOMEN AND PELVIS [...] REQUIRED Primary Interpreting Staff: NÉSTOR PASCUAL, RADIOLOGIST (Business Objects Architect) /NÉSTOR CONNER [facility] [facility] Pathology Reports: +/- 30 days of [...] comes from all [place] treatment facilities. Date/Time Pathology Report Provider Source Jun 07, 2024 05:30 PM LR MICROBIOLOGY RE PORT: Reporting Lab: [facility] [CLIA# [id number]] [address] [place] [address] Accession [UID]: [id number] [[id number]] Received: Jun 07, 2024@18:38 Collection sample: URINE CLEAN CATCH Collection date: Jun 07, 2024 17:30 Site/Specimen: URINE Provider: TODD VALVERDE Test(s) ordered: CULTURE,URINE CLEAN CATCH..... completed: Jun 10, 2024 12:19 * BACTERIOLOGY FINAL REPORT => Jun 12, 2024 11:34 TECH CODE: [id number] CULTURE RESULTS: 1. ENTEROCOCCUS FAECALIS - Quantity: >100,000 CFU/mL Comment: VANCOMYCIN RESISTANT ENTEROCOCCUS SPECIES IDENTIFIED. MDRO NOTIFIED VIA TEAMS GROUP 06/12/24. 2. YEAST - Quantity: 50,000-99,000 CFU/mL Comment: No further workup ANTIBIOTIC SUSCEPTIBILITY TEST RESULTS: 1. ENTEROCOCCUS FAECALIS : Ampicillin.................... S Ciprofloxacin................. R Gentamicin Synergy Screen..... S LEVOFLOXACIN.................. R Linezolid..................... S Nitrofurantoin................ S Penicillin-G.................. S Vancomycin.................... R Bacteriology Remark(s): Notified D Kirsten Valverde and Da [place] on 06/10/24 =--=--=--=--=--=--=--=--=--=--= --=--=--=--=--=--=--=--=--=--=- -=--=--=--=--=-- Performing Laboratory: Bacteriology Report Performed By: [facility] [IA# [id number]] [address] [place] [address] [facility] Encounter Notes: All associated [...] Date Given: 05/17/2024 Clinician: Laney Cochran Location: [facility] Case Mgt Phone : Galina Eduardo Jr SSN: [id number] : Sep [...] Q16. NEUROMUSCULAR DIAGNOSIS Yes COMMENTS 78-year-old male [place] s/p CVA, who needs assistance in the home to remain safely in the home. SOURCES 1. Person, 2. Informant, 3. Medical Record /es/ LANEY COCHRAN Signed: 05/17/2024 12:43 LANEY COCHRAN [facility]
--- OUTSIDE RECORDS SUMMARY | 2024-07-07 22:25 | XMS_ITS ---
Author Name [place] Address [address] [place] [address] Care Team Providers Care School Bus Driver/Mechanic Name Role Phone KYRA VELASQUEZ Primary Care [...] Relationship to Policy Ervin [facility] (WNR) MEDICARE ADVANTAGE MCR(W NR) * Aug 23, 2023 [id number] [phone] ANNALISA LOYD ITE PATIENT [facility] (WNR) MEDICARE ADVANTAGE [facility] (WNR) Aug 23, 2020 [id number] [phone] ANNALISA LOYD ITE PATIENT [facility] (WNR) MEDICARE [facility](W NR) Aug 23, 2012 [id number] ANNALISA LOYD ITE PATIENT Selected Encounter [...] activities for the patient from all [place] [facility]. This section includes future appointments and future [...] AMBULATORY - NONE [place] [facility] May 26, 2024 10:00 AM AMBULATORY - NONE [place] [facility] Jun 07, 2024 01:00 PM [place] [facility] Jun 07, 2024 03:55 PM AMBULATORY - MEDICINE [facility] Jannette [place] T [facility] Jun 13, 2024 10:00 AM AMBULATORY - SURGERY [facility] Jun 13, 2024 10:01 AM [place] [facility] Jun 15, 2024 09:00 AM AMBULATORY - NONE [place] [facility] Jun 20, 2024 11:30 AM AMBULATORY - NONE [place] [facility] Jun 21, 2024 12:30 PM [place] [facility] Jul 11, 2024 10:00 AM AMBULATORY - SURGERY [facility] Jul 11, 2024 10:01 AM [place] [facility] Jul 24, 2024 11:00 AM [place]BUL[place]ORY [place] [facility] Jul 27, 2024 10:00 AM AMBULATORY - NONE [place] [facility] Aug 29, 2024 10:30 AM AMBULATORY - NONE [place] [facility] Aug 29, 2024 11:15 AM [place]BUL[place]ORY [place] [facility] Oct 23, 2024 01:00 PM AMBULATORY - MEDICINE [facility] Oct 23, 2024 01:01 PM AMBULATORY - NONE [place] [facility] Active, Pending, and Scheduled Orders [...] 04:04 PM Consult Order COMMUNITY CARE-ALLERGY Cons Band Leader's Choice [facility] May 03, 2024 12:00 AM Laboratory - Chemi stry Order URORISK DIAGNOSTIC PROFILE(Q) 24H RENAL STONE KIT 24H URINE SP [facility] Jun 28, 2024 12:58 PM Consult Order PALLIATIVE CARE OUTPATIENT Cons Band Leader's [facility] Lab Results: +/- 30 [...] Range Comment Jun 07, 2024 05:30 PM [facility] URINALYSIS W/REFLEX TO CULTURE Specimen Type: URINE No comment entered. Ordering Provider: KAREEM VALVERDE Report Released Date/Time: Jun 07, 2024 04:57 PM Reporting Lab: [facility] [address] [facility] [address] Performing Lab: [facility] [address] [facility] [address] URINE COLOR Light-Yellow NOT DEFINED SPECIFIC GRAVITY [...] MICROSCOPIC-iQ Completed May 04, 2024 10:32 AM [facility] UREA NITROGEN Specimen Type: PLASMA Comment: , Tests performed on [employer] Lopes SN:[id number] ([id number]) Ordering Provider: AUBREY FAM Report Released Date/Time: Nov 15, 2023 11:30 AM Reporting Lab: [facility] [address] [facility] [address] Performing Lab: [facility] [address] [facility] [address] UREA NITROGEN 10 mg/dL 03-16May 04, 2024 10:32 AM [facility] CREATININE WITH eGFR PANEL Specimen Type: PLASMA Comment: , Tests performed on [employer] SN:[id number] ([id number]) Ordering Provider: AURBEY FAM Report Released Date/Time: Nov 15, 2023 11:30 AM Reporting Lab: [facility] [address] [facility] [address] Performing Lab: [facility] [address] [facility] [address] CREATININE 0.91 mg/dL 0.50-1.50 eGFR(CKD-EPI 2020) 86 [...] 30 MIN OF WAKEUP [facility] Tobacco Use History This [...] 21, 2024 10:15 AM VA-TOBACCO USE MANAGER GARAGE NO [facility] Feb 21, 2024 10:15 AM VA-TOBACCO USE MED NO [facility] Feb 21, 2024 10:15 AM VA-TOBACCO USE WI 30 MIN OF WAKEUP [facility] Feb 21, 2024 10:15 AM VA-TOBACCO USER EVERY DAY [facility] Jul 17, 2021 02:27 PM [facility] Jul 01, 2021 08:55 PM VA-VAAES TOBACCO U SE CURRENT NRT DECLINE [facility] Jul 01, 2021 02:41 PM CURRENT SMOKER REINIER GAYLE [facility] Dec 08, 2020 08:45 PM VA-TOBACCO USER EVERY DAY [facility] Dec 08, 2020 08:45 PM [...] CTA ABDOMEN AND PE LVIS: GALINA LOYD [id number] -1945 M Exm Date: MAY 04, 2024@12:30 Req Phys: VIMAL FAM L Pat Loc: [facility] VASCULAR 15 M3RH (Req'g Lo Img Loc: CT SCAN (OOS) Service: Unknown [facility] [place] [address] (Case [id number] COMPLETE) CTA ABDOMEN AND PELVIS (CT Detailed) CPT:93951 Contrast Media : Non-ionic Iodinated Reason for [...] 05, 2024 Date Verified: MAY 05, 2024 Armed Security Officer E-Sig:/ES/NÉSTOR PASCUAL Report: CTA ABDOMEN AND [...] REQUIRED Primary Interpreting Staff: NÉSTOR PASCUAL, RADIOLOGIST (Armed Security Officer) /NÉSTOR CONNER [facility] Pathology Reports: +/- 30 days [...] PM LR MICROBIOLOGY RE PORT: Reporting Lab: [facility] [CLIA# [id number]] [address] [place] [address] Accession [UID]: [id number] [[id number]] Received: Jun 07, 2024@18:38 Collection sample: URINE CLEAN CATCH Collection date: Jun 07, 2024 17:30 Site/Specimen: URINE Provider: TODD VALVERDE Test(s) ordered: CULTURE,URINE CLEAN CATCH..... completed: Jun 10, 2024 12:19 * BACTERIOLOGY FINAL REPORT => Jun 12, 2024 11:34 TECH CODE: [id number] CULTURE RESULTS: 1. ENTEROCOCCUS FAECALIS - Quantity: [...] Report Performed By: [facility] [CLIA# [id number]] [address] [place] [address] [facility] Encounter Notes: All associated encounter notes This section contains the clinical notes associated to the Encounter. Date/Time Encounter Note(s) Provider Source May 17, 2024 01:53 PM STEEL RULE INSPECTOR NOTE: LOCAL TITLE: Case Management Assessment STANDARD TITLE: STEEL RULE INSPECTOR NOTE DATE OF NOTE: MAY 17, 2024@13:53 ENTRY DATE: MAY 17, 2024@13:53:12 AUTHOR: DAMARIS COCHRAN COSIGNER: URGENCY: STATUS: COMPLETED PERSONAL CARE SERVICES [...] CSP Last PCP Visit: Mar Notes: 78-year-old [place] with history of CVA, s/p rehabilitation stay following a fx hip. 's spouse has been primary caregiver for who is beginning to have difficulties assisting [place] with certain ADL's. and his spouse are aware that they need ADL assistance to keep in his home safely. does have some cognitive impairment following his CVA, which at times make the difficult and argumentative. PERSONAL CARE SERVICES CASE MIX TOOL COMPLETED [X]YES [ ]NO DETERMINATION OF PATIENT APPROPRIATENESS FOR PCS: [facility] Handbook 1140.6 Purchased-Home Health Care Services Procedures governs the H/GRAPHITE GRINDER program and identifies clinical criteria for admission to all PCS. Home health aide services are the backbone of H/GRAPHITE GRINDER, with focus on assisting Veterans with ADL impairments. Homemaker services are supplemental to the provision of home health aide services. Authorizations solely for homemaker services should be made in extraordinary circumstances and by exception only. Respite eligibility per [facility] Handbook 1140.02: a. The has a diagnosed [...] criteria, as well as eligibility criteria for care home and long-term care. Eligibility and Determinations of Need for [place] Home Health Care Services per [facility] Handbook 1140.6 (1) Through an interdisciplinary assessment, the has been determined to have the following clinical conditions: [X](a) Three or more activity of daily living (ADL) dependencies in the areas of: DRESSING, GROOMING, BATHING, EATING, AMBULATION, TRANSFERS, TOILETING, or [ ](b) Significant cognitive impairment, or [ ](c) Require H/GRAPHITE GRINDER services as adjunct care to community hospice [...] a nursing facility, or has an upcoming care home discharge plan contingent on receipt of home [...] Second Range of Hours/Week* L 3-6 *Any [place] for whom the VA A, B, C 7-9 as financial responsibility D, E, F 10-11 for their care home care G, H, I 11-13 must be considered under the J, K 14-16 Second Range of Hours/Week for PCS. Note: a day of CAD[facility] counts as 5 hours of PCS Total number of hours may encompass H/GRAPHITE GRINDER, Home Respite and/or CAD[facility] [X] [place] eligible for services [ ] [place] not eligible for services at this time [ ] Other: (provide reason for exception, etc.) Case Mix E Hours/Week Authorized 10 Referrals to be made: [X]H/GRAPHITE GRINDER [ ]Home Respite [ ]Other: (Referral for services pending confirmation of available community resources) Other recommendations (skilled VNA, PT/OT consult, Palliative or Hospice): [X] This assessment reviewed and agreed with by PCP as added co-signer to this note. [ ] SW alerted to review with [place]/caregiver available VA programs or other eligibilities and/or provide community resources [X] Other: CSP referral to be made. PCP/PACT SW/Consult originator /vivian/ DAMARIS COCHRAN Signed: 05/17/2024 14:05 Receipt Acknowledged By: 05/18/2024 08:01 /vivian/ KYRA VELASQUEZ M.D INTERNAL MEDICINE, [facility]AN [facility]
--- OUTSIDE RECORDS SUMMARY | 2024-07-07 22:25 | XMS_ITS | Encounter Summary ---
Author Name [facility] [place] Organization [place] Address [address] [place] [address] Care Team Providers Care Maintenance Service Technician Name Role Phone KYRA VELASQUEZ [...] Name Patient's Relationship to Policy Ervin [facility] (WNR) MEDICARE [facility](W NR) * Aug 23, 2023 [id number] [phone] ANNALISA LOYD ITE PATIENT [facility] MCR (WNR) MEDICARE ADVANTAGE [facility] (WNR) Aug 23, 2020 [id number] [phone] ANNALISA LOYD ITE PATIENT [facility] (WNR) MEDICARE ADVANTAGE [facility](W NR) Aug 23, 2012 [id number] [phone] ANNALISA LOYD ITJannette PATIENT Selected Encounter [...] AMBULATORY - [place]ONE [place] [facility] Jun 07, 2024 01:00 PM AMBULATORY [place] [facility] Jun 07, 2024 03:55 PM AMBULATORY - MEDICINE [facility] Jannette [place] T [facility] Jun 13, 2024 10:00 AM AMBULATORY - SURGERY [facility] Jun 13, 2024 10:01 AM AMBUL[place] [facility] Jun 15, 2024 09:00 AM AMBULATORY - NONE [place] [facility] Jun 20, 2024 11:30 AM AMBULATORY - NONE [place] [facility] Jun 21, 2024 12:30 PM AMBUL[place]ORY [place] [facility] Jul 11, 2024 10:00 AM AMBULATORY - SURGERY [facility] Jul 11, 2024 10:01 AM AMBULATORY - [place] [facility] Jul 24, 2024 11:00 AM AMBULATORY - [place] [facility] Jul 27, 2024 10:00 AM AMBULATORY - NONE [place] [facility] Aug 29, 2024 10:30 AM AMBULATORY - NONE [place] [facility] Aug 29, 2024 11:15 AM [place]BUL[place]ORY [place] [facility] Oct 23, 2024 01:00 PM AMBULATORY - MEDICINE [facility] Oct 23, 2024 01:01 PM AMBULATORY - NONE [place] [facility] Active, Pending, and Scheduled Orders This section [...] 04:04 PM Consult Order COMMUNITY CARE-ALLERGY Cons Treating Engineer's Choice [facility] May 03, 2024 12:00 AM Laboratory - Chemi stry Order URORISK DIAGNOSTIC PROFILE(Q) 24H RENAL STONE KIT 24H URINE SP [facility] Jun 28, 2024 12:58 PM Consult Order PALLIATIVE CARE OUTPATIENT Cons Treating Engineers [facility] Lab Results: +/- 30 days of the encounter This section includes the Chemistry and Hematology Lab Results on record with [place] for the patient. Radiology Reports and Pathology [...] Reporting Lab: [facility] [address] [facility] [address] Performing Lab: [facility] [address] [facility] [address] URINE COLOR Light-Yellow NOT DEFINED SPECIFIC GRAVITY [...] Type: PLASMA Comment: , Tests performed on [employer] SN:[id number]) Ordering Provider: CASCADDEN,AL EXIS L Report Released Date/Time: Nov 15, 2023 11:30 AM Reporting Lab: [facility] [address] [facility] [address] Performing Lab: [facility] [address] [facility] [address] UREA NITROGEN 10 mg/dL 03-16May 04, 2024 10:32 AM [facility] CREATININE WITH eGFR PANEL Specimen Type: PLASMA Comment: , Tests performed on [employer] L[employer] SN:[id number] ([id number]) Ordering Provider: AUBREY FAM Report Released Date/Time: Nov 15, 2023 11:30 AM Reporting Lab: [facility] [address] [facility] [address] Performing Lab: [facility] [address] [facility] [address] CREATININE 0.91 mg/dL 0.50-1.50 eGFR(CKD-EPI 2020) 86 [...] Feb 21, 2024 10:15 AM VA-TOBACCO USE WIND PROJECTS SUPERVISOR NO [facility] Feb 21, 2024 10:15 AM VA-TOBACCO USE MED NO [facility] Feb 21, 2024 10:15 AM VA-TOBACCO USE WI 30 MIN OF WAKEUP [facility] Feb 21, 2024 10:15 AM VA-TOBACCO USER EVERY DAY [facility] Jul 17, 2021 02:27 PM CURRENT SMOKER [facility] Jul 01, 2021 08:55 PM VA-VAAES TOBACCO U SE CURRENT NRT DECLINE [facility] Jul 01, 2021 02:41 PM CURRENT SMOKER REINIER GAYLE [facility] Dec 08, 2020 08:45 PM [...] 12:30 PM CTA ABDOMEN AND PE LVIS: EVERTEVELYNE CARISA [id number] -1945 M Exm Date: MAY 04, 2024@12:30 Req Phys: VIMAL FAM Pat Loc: [facility] VASCULAR 15 M3RH (Req'g Lo Img Loc: CT SCAN (OOS) Service: [place] [facility] [address] (Case [id number] COMPLETE) CTA ABDOMEN AND PELVIS (CT Detailed) CPT:83452 Contrast Media : Non-ionic Iodinated Reason for [...] 05, 2024 Date Verified: MAY 05, 2024 Heat Transfer Technician E-Sig:/ES/NÉSTOR PASCUAL Report: CTA ABDOMEN AND [...] REQUIRED Primary Interpreting Staff: NÉSTOR PASCUAL, RADIOLOGIST (Heat Transfer Technician) /NÉSTOR CONNER [facility] Pathology Reports: +/- 30 [...] comes from all [place] treatment facilities. Date/Time Pathology Report Provider Source Jun 07, 2024 05:30 PM LR MICROBIOLOGY RE PORT: Reporting Lab: [facility] [CLIA# [id number]] [address] [place] [address] Accession [UID]: [id number] [[id number]] Received: Jun 07, 2024@18:38 Collection sample: URINE CLEAN CATCH Collection date: Jun 07, 2024 17:30 Site/Specimen: URINE Provider: TODD VALVERDE Test(s) ordered: CULTURE,URINE CLEAN CATCH..... completed: Jun 10, 2024 12:19 * BACTERIOLOGY FINAL REPORT => Jun 12, 2024 11:34 TECH CODE: [id number] CULTURE RESULTS: 1. ENTEROCOCCUS FAECALIS - Quantity: [...] Bacteriology Report Performed By: [facility] [CLIA# [id number]] [address] [place] [address] [facility] Encounter Notes: All associated [...] Name: GALINA LOYD JR Patient Primary Phone: [phone] Patient Primary Address: [address] [place] [id number] Patient : 1945 Patient Age: 78 Caller/Recipient Relation to Patient: Other If Other Describe Relation to Patient: [facility] Caller Name: Eileen Administrative Administrative Note Reason: Home Health / Senior Living Administrative Note Comments: Eileen requesting a referral for palliative care for [facility]. Eileen can be reached at [phone]. IMPORTANT: This note was created by [facility] staff. Please do not alert the staff member by adding them as a signer for future communications. Alerts are not monitored by this user. /vivian/ KESHAWN [facility] Contact [facility] AMSA Signed: 05/19/2024 10:47 Receipt Acknowledged By: 05/19/2024 15:10 /es/ EFRAÍN VALIENTE for OJ Curtis PETTIGLIO 05/19/2024 12:44 /es/ KYRA VELASQUEZ M.D INTERNAL MEDICINE, VISN [facility] KESHAWN KINGSLEY [facility]
--- OUTSIDE RECORDS SUMMARY | 2024-07-07 22:25 | XMS_ITS | Encounter Summary ---
Author Name Department [place] Organization [place] Address [address] [place] [address] Care Team Providers Care Pharmacy Affairs Assistant Name Role Phone RON KYRA Primary [...] Ervin [facility] (WNR) MEDICARE [facility](W NR) * Aug 23, 2023 [id number] ANNALISA LOYD ITE PATIENT [facility] (WNR) MEDICARE ADVANTAGE [facility] (WNR) Aug 23, 2020 [id number] [phone] ANNALISA LOYD ITE PATIENT [facility] (WNR) MEDICARE ADVANTAGE [facility](W NR) Aug 23, 2012 [id number] ANNALISA LOYD ITJannette PATIENT Selected Encounter [...] for other specified surgical aftercare MELISSA JAVIER [facility] Plan of Treatment: Future Appointments (+ 6 months) and Future Tests (+/- 45 days) The Plan of Treatment section includes future care activities for the patient from all [place] [facility]. This section includes future appointments and future [...] - SURGERY [place] [facility] Feb 21, 2024 10:15 AM AMBULATORY - NONE [place] [facility] Feb 21, 2024 11:00 AM AMBULATORY - NONE [place] [facility] Mar 18, 2024 12:01 AM AMBULATORY - NONE [place] [facility] Apr 06, 2024 01:00 PM AMBULATORY - NONE [place] [facility] Apr 06, 2024 01:00 PM AMBULATORY - MEDICINE [facility] Apr 10, 2024 01:30 PM AMBULATORY - MEDICINE [facility] Apr 10, 2024 01:31 PM AMBULATORY - NONE [place] [facility] Apr 11, 2024 10:00 AM AMBULATORY - SURGERY [facility] Apr 11, 2024 10:01 AM AMBULATORY - [place] [facility] Apr 21, 2024 10:30 AM AMBULATORY - NONE [place] [facility] May 03, 2024 02:30 PM AMBULATORY - [place]GERY [place] [facility] May 04, 2024 10:30 AM AMBULATORY - MEDICINE [place] Jannette [place]AY[place] T [facility] May 04, 2024 11:00 AM AMBULATORY - [place] [facility] May 04, 2024 12:30 PM AMBULATORY - NONE [place] [facility] May 04, 2024 01:00 PM AMBULATORY - SURGERY [facility] May 08, 2024 02:30 PM [facility] May 08, 2024 02:31 PM AMBULATORY - NONE SONYA LAI [facility] May 16, 2024 10:00 AM [facility]BULAT[facility] May 16, 2024 10:01 AM [...] PM Consult Order COMMUNITY CARE-NEUROLOGY Cons County Assessor's Choice [facility] Lab [...] [facility] [address] [facility] [address] Performing Lab: [facility] [address] [facility] [address] URINE COLOR Light-Morris NOT DEFINED SPECIFIC GRAVITY 1.013 1.003-1.030 UROBILINOGEN [...] SMOKER REINIER GAYLE [facility] Tobacco Use History [...] Nov 18, 2017 ADVANCE DIRECTIVE REBECCARADHA Husam [facility] Jul 08, 2017 ADVANCE DIRECTIVE DISCUSSION CRYSTALPURNIMA E [facility] Radiology Reports: [...] 11:15 AM UROGRAM RETROGRADE : GALINA LOYD [id number] -1945 M Exm Date: DEC 16, 2023@11:15 Req Phys: CORBY OSORIO Pat Loc: WRJ SD SHAWN GENERAL G2RD (Req'g Img Loc: XRAY (OOS) Service: [place] [address] (Case [id number] COMPLETE) UROGRAM RETROGRADE (RAD Detailed) CPT:12348 Contrast Media : Non-ionic Iodinated Proc Modifiers : OPERATING ROOM EXAM Reason for Study: bilat ureteroscopy laser litho, stent placement Clinical History: calculus of kidney Report Status: Verified Date Reported: DEC 16, 2023 Date Verified: DEC 16, 2023 Pest Control Service Representative E-Sig:/ES/BENJAMÍN PIMENTEL Report: UROGRAM RETROGRADE 12/16/2023 11:15 AM Impression: Fluoroscopy performed during urology service procedure. FINDINGS: Procedure performed with the C-arm fluoroscopy . Fluoroscopy time 55 seconds, dose 9 mGy Fluoroscopic images consistent with history of bilateral ureteroscopy and stent placement. Labels from bilateral [employer] Contour double-J ureteral stents placed on the scanned worksheet Please see procedure note for further details. HISTORY: bilat ureteroscopy laser litho, stent placement, Primary Diagnostic Code: NO IMMEDIATE ATTENTION REQUIRED Primary Interpreting Staff: BENJAMÍN PIMENTEL, Staff Physician (Pest Control Service Representative) /BENJAMÍN HYLTON [facility] [...] the Encounter. The data comes from all [facility] facilities. Date/Time Pathology Report Provider Source Nov 29, 2023 11:27 AM LR MICROBIOLOGY RE PORT: Reporting Lab: [facility] [CLIA# [id number]] [address] [place] [address] Accession [UID]: [id number] [[id number]] Received: Nov 30, 2023@19:53 Collection sample: URINE CLEAN CATCH Collection date: Nov 29, 2023 11:27 Site/Specimen: URINE Provider: CORBY OSORIO Test(s) ordered: CULTURE,URINE CLEAN CATCH..... completed: Dec 02, 2023 13:00 * BACTERIOLOGY FINAL REPORT => Dec 02, 2023 13:01 TECH CODE: [id number] Bacteriology Remark(s): 12/02/23 50,000-99,000 CFU/mL AT LEAST THREE BACTERIAL TYPES PRESENT INDICATING POSSIBLE CONTAMINATION, PLEASE REPEAT COLLECTION. =--=--=--=--=--=--=--=--=--=--= --=--=--=--=--=--=--=--=--=--=- -=--=--=--=--=-- Performing Laboratory: Bacteriology Report Performed By: [facility] [CLIA# [id number]] [address] [place] [address] [facility] Encounter Notes: All [...] JAVIER Anesthesiology Signed: 05/22/2024 09:31 MELISSA JAVIER [facility]
--- OUTSIDE RECORDS SUMMARY | 2024-07-07 22:25 | XMS_ITS ---
[place] MED NUTRITION [facility]SEQ 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 Name Role Phone RON KYRA Primary Care [...] Ervin's Name Patient's Relationship to Policy Ervin [facility] (WNR) MEDICARE ADVANTAGE MCR(W NR) * Aug 23, 2023 [id number] ANNALISA LOYD ITE PATIENT [facility] (WNR) MEDICARE ADVANTAGE [facility] (WNR) Aug 23, 2020 [id number] [phone] ANNALISA LOYD ITE PATIENT [facility] (WNR) MEDICARE ADVANTAGE [facility](W NR) Aug 23, 2012 [id number] ANNALISA LOYD ITJannette PATIENT Selected Encounter This section includes the information on record at [place] for the Encounter. Date/Time Encounter Type Encounter Description Reason Provider Source May 08, 2024 02:31 PM MED NUTRITION INDIV SUBSEQ NUTRITION/DIETETI CS-INDIVIDUAL ICD-10-CM Z71.3 Dietary counseling and surveillance PURNIMA CROOK [facility] Encounter Template Text not used by [place] Assessments - Encounter Diagnoses This section includes the primary and secondary diagnoses documented for the Encounter. Date/Time Primary/Secondary Diagnosis Diagnosis Name Provider Source May 08, 2024 03:20 PM PRIMARY Dietary counseling and surveillance PURNIMA CROOK SONYA GAYLE [facility] May 08, 2024 03:20 PM SECONDARY Body mass index [BMI] 19.9 or less, adult PURNIMA CROOK SONYA [facility] Plan of Treatment: Future Appointments (+ 6 months) and Future Tests (+/- 45 days) The Plan of Treatment section includes future care activities for the patient from all [place] [facility]. This section includes future appointments and [...] 10:01 AM AMBULATORY - SURG[place] [facility] May 19, 2024 08:00 AM AMBULATORY - NONE [place] [facility] May 26, 2024 10:00 AM AMBULATORY - NONE [place] [facility] Jun 07, 2024 01:00 PM AMBULATORY - [place] [facility] Jun 07, 2024 03:55 PM AMBULATORY - [place]IC[place] [facility] Jun 13, 2024 10:00 AM AMBULATORY - SURGERY [facility] Jun 13, 2024 10:01 AM AMBULATORY - [place] [facility] Jun 15, 2024 09:00 AM AMBULATORY - NONE [place] [facility] Jun 20, 2024 11:30 AM AMBULATORY - NONE [place] [facility] Jun 21, 2024 12:30 PM AMBULATORY - SURGERY [place] [facility] Jul 11, 2024 10:00 AM AMBULATORY - SURGERY [facility] Jul 11, 2024 10:01 AM AMBULATORY - SURGERY [place] [facility] Jul 24, 2024 11:00 AM AMBULATORY - SURGERY SONYA GAYLE [facility] Jul 27, 2024 10:00 AM AMBULATORY - NONE [place] [facility] Aug 29, 2024 10:30 AM AMBULATORY - NONE [place] [facility] Aug 29, 2024 11:15 AM AMBULATORY - SURGERY SONYA GAYLE [facility] Oct 23, 2024 01:00 PM AMBULATORY - MEDICINE [facility] Oct 23, 2024 01:01 PM AMBULATORY - NONE [place] [facility] Active, Pending, and Scheduled Orders This [...] 04:04 PM Consult Order COMMUNITY CARE-ALLERGY Cons Project Surveyor's Choice EDISON NALINI [facility] May 03, 2024 12:00 AM Laboratory - Chemi stry Order URORISK DIAGNOSTIC PROFILE(Q) 24H RENAL STONE KIT 24H URINE SP [facility] Lab Results: +/- 30 [...] Reporting Lab: [facility] [address] [facility] [address] Performing Lab: [facility] [address] [facility] [address] URINE COLOR Light-Yellow NOT DEFINED SPECIFIC GRAVITY [...] Type: PLASMA Comment: , Tests performed on TalkLife SN:[id number] (405) Ordering Provider: AUBREY FAM Report Released Date/Time: Nov 15, 2023 11:30 AM Reporting Lab: [facility] [address] [facility] [address] Performing Lab: [facility] [address] [facility] [address] UREA NITROGEN 10 mg/dL -May 04, 2024 10:32 AM [facility] CREATININE WITH eGFR PANEL Specimen Type: PLASMA Comment: , Tests performed on TalkLife SN:[id number] (405) Ordering Provider: AUBREY FAM Report Released Date/Time: Nov 15, 2023 11:30 AM Reporting [facility] [address] [facility] [address] Performing Lab: [facility] [address] [facility] [address] CREATININE 0.91 mg/dL 0.50-1.50 eGFR(CKD-EPI 2020) 86 [...] Date/Time Current Smoking Status Comment Nataly schaeffer Feb 21, 2024 10:15 AM VA-TOBACCO [...] Feb 21, 2024 10:15 AM VA-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 [facility] Feb 21, 2024 [...] CTA ABDOMEN AND PE LVIS: GALINA LOYD [id number] -1945 M Exm Date: MAY 04, 2024@12:30 Req Phys: VIMAL FAM Loc: [facility] VASCULAR 15 M3RH (Req'g Lo Img Loc: CT SCAN (OOS) Service: Unknown [facility] [address] (Case [id number] COMPLETE) CTA ABDOMEN AND PELVIS (CT Detailed) CPT:68824 Contrast Media : Non-ionic Iodinated Reason for [...] 05, 2024 Date Verified: MAY 05, 2024 Casing Crew E-Sig:/ES/NÉSTOR PASCUAL Report: CTA ABDOMEN AND PELVIS [...] REQUIRED Primary Interpreting Staff: NÉSTOR PASCUAL, RADIOLOGIST (Casing Crew) /NÉSTOR CONNER [facility] Pathology Reports: +/- 30 days of [...] MICROBIOLOGY RE PORT: Reporting Lab: SONYA [facility] [CLIA# [id number]] [address] [facility] [place] [address] Accession [UID]: [id number] [[id number]] Received: Jun 07, 2024@18:38 Collection sample: URINE CLEAN CATCH Collection date: Jun 07, 2024 17:30 Site/Specimen: URINE Provider: TODD CERNA Test(s) ordered: CULTURE,URINE CLEAN CATCH..... completed: Jun 10, 2024 12:19 * BACTERIOLOGY FINAL REPORT => Jun 12, 2024 11:34 TECH CODE: [id number] CULTURE RESULTS: 1. ENTEROCOCCUS FAECALIS - Quantity: [...] -=--=--=--=--=-- Performing Laboratory: Bacteriology Report Performed By: [facility] [CLIA# [id number]] [address] [place] [address] [facility] Encounter Notes: All associated encounter notes This section contains the clinical notes associated to the Encounter. Date/Time Encounter Note(s) Provider Source May 25, 2024 10:30 AM ADDENDUM: LOCAL TITLE: Addendum STANDARD TITLE: ADDENDUM DATE OF NOTE: MAY 25, 2024@10:30:04 ENTRY DATE: MAY 25, 2024@10:30:05 AUTHOR: PURNIMA CROOK EXP COSIGNER: URGENCY: STATUS: COMPLETED I'd prefer to see the pt in 3 months if he is continuing to lose weight, but if they would prefer to schedule in 6 months and reach out as needed in between, that is up to them. Thank you. /vivian/ PURNIMA CROOK CLINICAL DIETITIAN Signed: 05/25/2024 10:32 Receipt Acknowledged By: 06/13/2024 10:42 /es/ ADITI GARCIA Health Polysomnographic Technologist --- Original Document --- 05/08/24 Nutrition Follow-Up Note: NUTRITION OUTPATIENT ASSESSMENT: Follow-up Visit (Telehealth) ----Pt identity confirmed using two pt identifiers (Last 4 SSN, Full Name)---- Nutrition Following for: unintended weight loss Last nutrition appointment: 12/13/23 Time spent today: 15 minutes Dx: Z71.3 Dietary counseling and surveillance; z68.1 Body mass index [BMI] 19.9 or less, adult ------Assessment------ Pt is a 78 y.o. [place] here for a nutrition follow up - [...] with physical therapy, feels pt appetite improved ----- Previous Nutrition Goals Of Intervention: 1. Pt willing to aim to increase to drinking two glasses of whole milk with [place] Breakfast Essentials per day --> goal achieved, ongoing 2. Pt will aim to consume > 75% of meals --> goal likely achieved as pt has maintained weight ----- Nutrition Hx: B: blueberry muffin with whipped [...] to two glasses of whole milk with [place] Breakfast Essentials per day *Nutrition counseling based [...] milk with CIB per day LEARNER: , [place]'s LEARNING CONSIDERATIONS/IDENTIFIED BARRIERS: none COMPREHENSION/MOTIVATION TO LEARN: fair TEACHING METHOD: discussion, goal setting -----Nutrition Monitoring/Evaluation----- Previous Monitors: Prevent further weight loss and/or gradual weight gain - Status: Goal achieved, weight up ~3 lbs in the past month New Monitors Indicator Criteria: weight - Prevent further weight loss and/or gradual weight gain Patient Indicated Date (PID): 3 months via TH - please reach out to pt to schedule. Thank you. - Discussed month F/u with [place]. RTC placed TH /vivian/ PURNIMA CROOK CLINICAL DIETITIAN Signed: 05/08/2024 15:21 Receipt Acknowledged By: 05/25/2024 09:07 /vivian/ ADITI GACRIA Health Polysomnographic Technologist 05/25/2024 ADDENDUM STATUS: COMPLETED Call out to patient to schedule 3 mo f/u. TW spoke with spouse, she stated she would like to hold off on scheduling this appt due to following recommendations but, patient is still not gaining weight. She is requesting 6 month f/u instead. Please advise. /vivian/ ADITI GARCIA Health Polysomnographic Technologist Signed: 05/25/2024 09:07 Receipt Acknowledged By: 05/25/2024 10:29 /huber CROOK CLINICAL DIETITIAN 05/30/2024 ADDENDUM STATUS: COMPLETED Call out to patient regarding Nutrition f/u. Unable to reach, left [facility] requesting return call. /huber GARCIA Health Polysomnographic Technologist Signed: 05/30/2024 14:21 PURNIMA CROOK [facility] May 25, 2024 09:04 AM ADDENDUM: LOCAL TITLE: Addendum STANDARD TITLE: ADDENDUM DATE OF NOTE: MAY 25, 2024@09:04:54 ENTRY DATE: MAY 25, 2024@09:04:54 AUTHOR: AUGER,ADITI EXP COSIGNER: URGENCY: STATUS: COMPLETED Call out to patient to schedule 3 mo f/u. TW spoke with spouse, she stated she would like to hold off on scheduling this appt due to following recommendations but, patient is still not gaining weight. She is requesting 6 month f/u instead. Please advise. /vivian/ ADITI GARCIA Health Polysomnographic Technologist Signed: 05/25/2024 09:07 Receipt Acknowledged By: 05/25/2024 10:29 /es/ PURNIMA CROOK CLINICAL DIETITIAN --- Original Document --- 05/08/24 Nutrition Follow-Up Note: NUTRITION OUTPATIENT ASSESSMENT: Follow-up Visit (Telehealth) ----Pt identity confirmed using two pt identifiers (Last 4 SSN, Full Name)---- Nutrition Following for: unintended weight loss Last nutrition appointment: 12/13/23 Time spent today: 15 minutes Dx: Z71.3 Dietary counseling and surveillance; z68.1 Body mass index [BMI] 19.9 or less, adult ------Assessment------ Pt is a 78 y.o. [place] here for a nutrition follow up - [...] with physical therapy, feels pt appetite improved ----- Previous Nutrition Goals Of Intervention: 1. Pt willing to aim to increase to drinking two glasses of whole milk with [place] Breakfast Essentials per day --> goal achieved, ongoing 2. Pt will aim to consume > 75% of meals --> goal likely achieved as pt has maintained weight ----- Nutrition Hx: B: blueberry muffin with whipped [...] to two glasses of whole milk with [place] Breakfast Essentials per day *Nutrition counseling based [...] Thank you. - Discussed month F/u with [place]. RTC placed /es/ PURNIMA CROOK CLINICAL DIETITIAN Signed: 05/08/2024 15:21 Receipt Acknowledged By: 05/25/2024 09:07 /es/ ADITI GARCIA Health Polysomnographic Technologist 05/25/2024 ADDENDUM STATUS: UNSIGNED You may not VIEW this UNSIGNED Addendum. ADITI GARCIA [facility] May 08, 2024 07:15 AM NUTRITION DIETETIC S NOTE: LOCAL TITLE: Nutrition Follow-Up Note STANDARD TITLE: NUTRITION DIETETICS NOTE DATE OF NOTE: MAY 08, 2024@07:15 ENTRY DATE: MAY 08, 2024@07:15:59 AUTHOR: PURNIMA CROOK EXP COSIGNER: URGENCY: STATUS: COMPLETED Nutrition Follow-Up Note Has ADDENDA NUTRITION OUTPATIENT ASSESSMENT: Follow-up Visit (Telehealth) ----Pt identity confirmed using two pt identifiers (Last 4 SSN, Full Name)---- Nutrition Following for: unintended weight loss Last nutrition appointment: 12/13/23 Time spent today: 15 minutes Dx: Z71.3 Dietary counseling and surveillance; z68.1 Body mass index [BMI] 19.9 or less, adult ------Assessment------ Pt is a 78 y.o. [place] here for a nutrition follow up - [...] with physical therapy, feels pt appetite improved ----- Previous Nutrition Goals Of Intervention: 1. Pt willing to aim to increase to drinking two glasses of whole milk with [place] Breakfast Essentials per day --> goal achieved, ongoing 2. Pt will aim to consume > 75% of meals --> goal likely achieved as pt has maintained weight ----- Nutrition Hx: B: blueberry muffin with whipped [...] to two glasses of whole milk with [place] Breakfast Essentials per day *Nutrition counseling based [...] whole milk with CIB per day LEARNER: [place], 's LEARNING CONSIDERATIONS/IDENTIFIED BARRIERS: none COMPREHENSION/MOTIVATION TO [...] Thank you. - Discussed month F/u with . RTC placed /vivian/ PURNIMA CROOK CLINICAL DIETITIAN Signed: 05/08/2024 15:21 Receipt Acknowledged By: 05/25/2024 09:07 /vivian/ ADITI GARCIA Health Polysomnographic Technologist 05/25/2024 ADDENDUM STATUS: COMPLETED Call out to patient to schedule 3 mo f/u. TW spoke with spouse, she stated she would like to hold off on scheduling this appt due to following recommendations but, patient is still not gaining weight. She is requesting 6 month f/u instead. Please advise. /vivian/ ADITI GARCIA Health Polysomnographic Technologist Signed: 05/25/2024 09:07 Receipt Acknowledged By: 05/25/2024 10:29 /huber CROOK CLINICAL DIETITIAN 05/25/2024 ADDENDUM STATUS: COMPLETED I'd prefer to see the pt in 3 months if he is continuing to lose weight, but if they would prefer to schedule in 6 months and reach out as needed in between, that is up to them. Thank you. /huber CROOK CLINICAL DIETITIAN Signed: 05/25/2024 10:32 Receipt Acknowledged By: 06/13/2024 10:42 /vivian/ ADITI GARCIA Health Polysomnographic Technologist 05/30/2024 ADDENDUM STATUS: COMPLETED Call out to patient regarding TH Nutrition f/u. Unable to reach, left [facility] requesting return call. /vivian/ ADITI GARCIA Health Polysomnographic Technologist Signed: 05/30/2024 14:21 06/13/2024 ADDENDUM STATUS: COMPLETED TW spoke with patient regarding TH NUTRITION f/u. Patient requested 6 month f/u be scheduled and will call in the interim with any questions or if he would like to be seen sooner. Neg. date and time with patient/daughter. /vivian/ ADITI GARCIA Health Polysomnographic Technologist Signed: 06/13/2024 10:45 PURNIMA CROOK [facility]
--- OUTSIDE RECORDS SUMMARY | 2024-07-07 22:25 | XMS_ITS | Encounter Summary ---
Author Name [place] Address [address] [place] [address] Care Team Providers Care Multimedia Project Manager Name Role Phone KYRA VELASQUEZ [...] Ervin [facility] (WNR) MEDICARE [facility](W NR) * Aug 23, 2023 [id number] ANNALISA LOYD ITE PATIENT [facility] MCR (WNR) MEDICARE ADVANTAGE [facility] (WNR) Aug 23, 2020 [id number] [phone] ANNALISA LOYD ITE PATIENT [facility] (WNR) MEDICARE ADVANTAGE [facility](W NR) Aug 23, 2012 [id number] [phone] ANNALISA LOYD ITJannette PATIENT Selected Encounter This section includes the information on record at [place] for the Encounter. Date/Time Encounter Type Encounter Description Reason Pro vider Source May 02, 2024 12:00 PM Outpatient Encounter ADMIN PAT ACTIVTIES (MASNONCT) IHE Encounter Template Text not used by [place] Plan of Treatment: Future Appointments (+ 6 [...] PM AMBUL[place]ORY [place] [facility] May 04, 2024 10:30 AM AM[place] [facility] May 04, 2024 11:00 AM [place]ORY [place] [facility] May 04, 2024 12:30 PM AM[place]ATORY - NONE [place] [facility] May 04, 2024 01:00 PM [place]BUL[place]ORY [place] [facility] May 08, 2024 02:30 PM AMBULATORY - MEDICINE [facility] May 08, 2024 02:31 PM AM[place]ULATORY - NONE [place] [facility] May 16, 2024 10:00 AM AMBULATORY - SURGERY [facility] May 16, 2024 10:01 AM [place]BULATORY [place] [facility] May 19, 2024 08:00 AM AMBULATORY - NONE [place] [facility] May 26, 2024 10:00 AM AMBULATORY - NONE [place] [facility] Jun 07, 2024 01:00 PM [place]ORY [place] [facility] Jun 07, 2024 03:55 PM [place]ORY [place]IC[place] [facility] Jun 13, 2024 10:00 AM AMBULATORY - SURGERY [facility] Jun 13, 2024 10:01 AM AMBULATORY [place] [facility] Jun 15, 2024 09:00 AM AMBULATORY - NONE [place] [facility] Jun 20, 2024 11:30 AM AMBULATORY - NONE [place] [facility] Jun 21, 2024 12:30 PM AMBULATORY - [place] [facility] Jul 11, 2024 10:00 AM [facility] Jul 11, 2024 10:01 AM AMBULATORY - SURGERY [facility] [...] 04:04 PM Consult Order COMMUNITY CARE-ALLERGY Cons Hand Tire Trimmer's Choice [facility] May 03, 2024 12:00 AM Laboratory - Chemi stry Order URORISK DIAGNOSTIC PROFILE(Q) 24H RENAL STONE KIT 24H URINE SP [facility] Lab Results: +/- 30 days [...] Range Comment May 04, 2024 10:32 AM [facility] UREA NITROGEN Specimen Type: PLASMA Comment: , Tests performed on Seen Moses [id number] (405) Ordering Provider: DAVID FAM Report Released Date/Time: Nov 15, 2023 11:30 AM Reporting Lab: [facility] [address] [facility] [place] [address] Performing Lab: [facility] [address] [facility] [address] UREA NITROGEN 10 mg/dL 03-16May 04, 2024 10:32 AM [facility] CREATININE WITH eGFR PANEL Specimen Type: PLASMA Comment: , Tests performed on Seen Moses [id number] ([id number]) Ordering Provider: DAVID FAM Report Released Date/Time: Nov 15, 2023 11:30 AM Reporting Lab: [facility] [address] [facility] [place] [address] Performing Lab: [facility] [address] [facility] [address] CREATININE 0.91 mg/dL 0.50-1.50 eGFR(CKD-EPI 2020) 86 [...] Feb 21, 2024 10:15 AM VA-TOBACCO USE RESISTANCE BRAZER NO [facility] Feb 21, 2024 [...] Source Nov 18, 2017 ADVANCE DIRECTIVE REBECCARADHA [facility] Jul 08, 2017 ADVANCE [...] CTA ABDOMEN AND PE LVIS: GALINA LOYD [id number] -1945 M Exm Date: MAY 04, 2024@12:30 Req Phys: VIMAL FAM Pat Loc: [facility] VASCULAR 15 M3RH (Req'g Lo Img Loc: CT SCAN (OOS) Service: [place] [address] (Case [id number] COMPLETE) CTA ABDOMEN AND PELVIS (CT Detailed) CPT:53913 Contrast Media : Non-ionic Iodinated Reason for [...] 05, 2024 Date Verified: MAY 05, 2024 Breaker Hand E-Sig:/PARIS/NÉSTOR PASCUAL Report: CTA ABDOMEN AND PELVIS , [...] REQUIRED Primary Interpreting Staff: NÉSTOR PASCUAL, RADIOLOGIST (Breaker Hand) /NÉSTOR CONNER [facility] [facility] Encounter Notes: All associated encounter [...] 05/02/2024 Note Title: Non[facility] Medical Records Origin: [facility] Type: PROCEDURE RECORD/REPORT Specialty: LABORATORY LABORATORY RESULTS [facility] SCANNED DOCUMENT SIGNATURE NOT REQUIRED Electronically Filed: 05/12/2024 by: ETIENNE WOOD Receipt Acknowledged By: * AWAITING SIGNATURE * KYRA VELASQUEZ TARA L [place] [facility]
--- OUTSIDE RECORDS SUMMARY | 2024-07-07 22:26 | XMS_ITS | Encounter Summary ---
Author Name [facility] [place] Organization [place] Address [address] [place] [address] Care Team Providers Care Insurance Adviser Name Role Phone KYRA VELASQUEZ Primary Care [...] Name Patient's Relationship to Policy Ervin [facility] (WNR) MEDICARE ADVANTAGE MCR(W NR) * Aug 23, 2023 [id number] ANNALISA LOYD ITE PATIENT [facility] (WNR) MEDICARE [facility] (WNR) Aug 23, 2020 [id number] [phone] ANNALISA LOYD ITE PATIENT [facility] (WNR) MEDICARE ADVANTAGE MCR(W NR) Aug 23, 2012 [id number] ANNALISA LOYD ITE PATIENT Selected Encounter This section includes the information on record at [place] for the Encounter. Date/Time Encounter Type Encounter Description Reason Pro vider Source Jun 03, 2024 09:16 PM Outpatient Encounter TELEPHONE TRIAGE IHE Encounter Template Text not used by [place] Plan of Treatment: Future Appointments (+ 6 months) and Future Tests (+/- 45 days) The Plan of Treatment section includes future care activities for the patient from [facility] [place] [facility] This section includes future appointments and future orders which are active, pending or scheduled. Future Appointments This section includes appointments that were scheduled to occur 6 months from the date of the Encounter, up to a maximum of 20 appointments. The data comes from all [facility] facilities. Appointment Date/Time Appointment Type Appointme nt Facility Name Jun 07, 2024 01:00 PM AMBUL[facility]ORY [place] [facility] Jun 07, 2024 03:55 PM AMBULATORY - MEDICINE [facility] Jannette [facility] Jun 13, 2024 10:00 AM AMBULATORY - SURGERY [facility] Jun 13, 2024 10:01 AM [facility] [place] [facility] Jun 15, 2024 09:00 AM AMBULATORY - NONE [place] [facility] Jun 20, 2024 11:30 AM AM[place]ULATORY - NONE [place] [facility] Jun 21, 2024 12:30 PM [place] [place] [facility] Jul 11, 2024 10:00 AM AMBULATORY - SURGERY [facility] Jul 11, 2024 10:01 AM [facility] [place] [facility] Jul 24, 2024 11:00 AM AM[facility] [place] [facility] Jul 27, 2024 10:00 AM AMBULATORY - NONE [place] [facility] Aug 29, 2024 10:30 AM AMBULATORY - NONE [place] [facility] Aug 29, 2024 11:15 AM [place] [place] [facility] Oct 23, 2024 01:00 PM AMBULATORY - MEDICINE [facility] Oct 23, 2024 01:01 PM AMBULATORY - NONE [place] [facility] Active, Pending, and Scheduled Orders This section includes a listing of several types of active, pending, and scheduled orders, including clinic medications orders, diagnostic test orders, procedure orders and consult orders; where the start date of the order is 45 days before the date of the Encounter or 45 days after the date of theEncounter. The data comes from all [facility] treatment facilities. 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 The data comes from all [facility] facilities. Date/Time Radiology Report Provider Source May 04, 2024 12:30 PM CTA ABDOMEN AND PE LVIS: GALINA LOYD [id number] -1945 M Exm Date: MAY 04, 2024@12:30 Req Phys: VIMAL FAM Loc: [facility] VASCULAR 15 M3RH (Req'g Lo Img Loc: CT SCAN (OOS) Service: Unknown [facility] [address] (Case [id number] COMPLETE) CTA ABDOMEN AND PELVIS (CT Detailed) CPT:14081 Contrast Media : Non-ionic Iodinated Reason for [...] 05, 2024 Date Verified: MAY 05, 2024 Contract Runner E-Sig:/ES/NÉSTOR PASCUAL Report: CTA ABDOMEN AND PELVIS [...] IMMEDIATE ATTENTION REQUIRED Primary Interpreting Staff: NÉSTOR PACSUAL, RADIOLOGIST (Contract Runner) /NÉSTOR CONNER Tobi [facility] Pathology Reports: +/- 30 days [...] PM LR MICROBIOLOGY RE PORT: Reporting Lab: [facility] [CLIA# [id number]] [address] [place] [address] Accession [UID]: [id number] [[id number]] Received: Jun 07, 2024@18:38 Collection sample: URINE CLEAN CATCH Collection date: Jun 07, 2024 17:30 Site/Specimen: URINE Provider: TODD CERNA Test(s) ordered: CULTURE,URINE CLEAN CATCH..... completed: Jun 10, 2024 12:19 * BACTERIOLOGY FINAL REPORT => Jun 12, 2024 11:34 TECH CODE: [id number] CULTURE RESULTS: 1. ENTEROCOCCUS FAECALIS - Quantity: [...] Bacteriology Report Performed By: SONYA PINON [facility] [CLIA# [id number]] [address] [place] [address] [facility] Encounter Notes: All associated encounter notes This section contains the clinical notes associated to the Encounter. Date/Time Encounter Note(s) Provider Source Jun 03, 2024 09:16 PM RN PROGRESS NOTE: LOCAL TITLE: CCC: CLINICAL TRIAGE STANDARD TITLE: RN PROGRESS NOTE DATE OF NOTE: JUN 03, 2024@21:16:25 ENTRY DATE: JUN 03, 2024@21:16:25 AUTHOR: KATIANA ARREOLA COSIGNER: URGENCY: STATUS: COMPLETED CCC: CLINICAL TRIAGE Has ADDENDA Patient Demographics Patient Name: GALINA YOUNGER EVERT Patient Primary [address]: [address] [place] [id number] Patient Primary Phone: [phone] Patient : 1945 Patient Age: 78 Caller/Recipient Relation to Patient: Self Emergency Contact: MARIE LOYD Triage Summary Conducted triage/discussed symptoms Pain Score: 0 (No Pain) Utilized the Triage Tool: Yes Chief Complaint: Vomiting System WHEN: Self-care Nurse's Recommendation / WHEN: Selfcare System WHERE: Home Nurse's Recommendation / WHERE: Home Care Patient Disposition Patient/Caregiver agrees to plan of care: Yes Nursing Plan and Disposition Other course(s) of action Provided guidance for worsening symptoms: *Caller/Patient* advised to call facilities [place] Clinical Contact Center or seek immediate medical attention for new or worsening symptoms Alternative course of action Alternative courses of action: self care Nurse Summary Nurse Summary: Vomited twice Clinical Contact Center Codes Clinic/Location: [facility] PHONE CCC RN Notes Notes & Information: Vet and daughter call to report he was started on Bactrim 8 days ago for MRSA UTI and has giraldo catheter in place until urology follow up on 06/07/24. He has vomited twice in the last 30 minutes; he has had nausea when taking Bactrim in the past 8 days. He has had his usual urine output today. Current temp=98.2. Denies fever, chills, pain, hematuria, diarrhea, sob, diff breathing, dizziness, CP, diaphoresis, frequency, burning, any other symptoms. Advised on home care measures and to monitor closely for worsening symptoms. If symptoms worsen go to ER. They verbalize agreement and understanding. Decision Support System Output: Triage Complete Triage Date: 06/03/2024, 09:14 PM Triage Note: Decision Support Tool Used: [facility] Phone Triage Tisha, 04 Jun 2024 01:09:20 +0000 [facility] Demographics 78 y/o Male Results CC: Vomiting Software suggested: Self-care Software suggested follow-up location: Home, consider virtual care Values and Measures Temperature: 98.2 Fahrenheit Duration of CC: 1 Hours Positive Responses MEDS: taking prescription medications daily PMH: heart disease PMH: UTI VS: pulse not taken VS: temperature not taken Negative Responses Denies: HPI: abdominal [...] grounds Denies: HPI: fever, subjective Denies: HPI: heartburn, episodic Denies: HPI: hematemesis [...] icterus Denies: HPI: sore throat Denies: HPI: symptoms similar to past UTI Denies: HPI: urinary urgency, constant Denies: HPI: vertigo Denies: HPI: vomiting, episodic, duration longer than 2 weeks Denies: HPI: vomiting, more than 6 episodes within past 8 hours Denies: HPI: vomiting, onset after medication dose change Denies: HPI: vomiting, onset after starting new medication Denies: HPI: weakness, fatigue, more than usual Denies: HPI: weakness, unable to stand or get out of bed Denies: MEDS: taking a medication that may increase risk for drug toxicity Denies: PMH: angina Denies: PMH: diabetes Denies: PMH: gallbladder disease Denies: PMH: heart attack Denies: PSH: abdominal surgery Denies: SOC: ETOH use Education Verbal Education Provided for: Nausea and Vomiting Home Care IMPORTANT: This note was created by [facility] staff. Please do not alert the staff member by adding them as a signer for future communications. Alerts are not monitored by this user. /vivian/ KATIANA LOPEZ 2, CCC RN Signed: 06/03/2024 21:16 Receipt Acknowledged By: 06/06/2024 11:59 /es/ JENIFER SHANE LPN 06/06/2024 16:34 /vivian/ OJ GIL RN 06/06/2024 ADDENDUM STATUS: COMPLETED vet has appt 06/07 /vivian/ OJ GIL RN Signed: 06/06/2024 16:34 KATIANA ARREOLA [facility]
--- OUTSIDE RECORDS SUMMARY | 2024-07-07 22:26 | XMS_ITS | Encounter Summary ---
Author Name [facility] [place] Organization [facility] [place] Address [address] [place] [address] Care Team Providers Care Water Pollution Control Inspector Name Role Phone KATHARINE VELASQUEZANN Primary Care Provider Unavailabl e Insurance Providers: [...] ADVANTAGE MCR(W NR) * Aug 23, 2023 [id number] [phone] ANNALISA LOYD ITE PATIENT [facility] (WNR) MEDICARE ADVANTAGE [facility] (WNR) Aug 23, 2020 [id number] [phone] ANNALISA LOYD ITE PATIENT [facility] (WNR) MEDICARE [facility](W NR) Aug 23, 2012 [id number] ANNALISA LOYD ITE PATIENT Selected Encounter This section includes the information on record at [place] for the Encounter. Date/Time Encounter Type Encounter Description Reason Provider Source Jun 07, 2024 01:00 PM [facility] ICD-10-CM R33.8 Other retention of urine KERA SALCEDO Jannette Encounter Template Text not used by [facility] Assessments - Encounter Diagnoses This section includes the primary and secondary diagnoses documented for the Encounter. Date/Time Primary/Secondary Diagnosis Diagnosis Name Provider Source Jun 07, 2024 04:08 PM PRIMARY Other retention of urine ASIA SALCEDO [place] [facility] Plan of Treatment: Future Appointments (+ 6 months) and Future Tests (+/- 45 days) The Plan of Treatment section includes future care activities for the patient from all [place] treatmentfacilities. This section includes future appointments and future orders which are active, pending or scheduled. Future Appointments This section includes appointments that were scheduled to occur 6 months from the date of the Encounter, up to a maximum of 20 appointments. The data comes from all [place] treatment facilities. Appointment Date/Time Appointment Type Appointme nt Facility Name Jun 13, 2024 10:00 AM AMBULATORY - [...] SURGERY [place] [facility] Jul 11, 2024 10:00 AM AMBULATORY - SURGERY [facility] Jul 11, 2024 10:01 AM AMBULATORY - SURGERY [facility] Jul 24, 2024 11:00 AM AMBULATORY - SURGERY [facility] Jul 27, 2024 10:00 AM AM[facility]ATORY - NONE [place] [facility] [facility] Aug 29, 2024 10:30 AM AMBULATORY - NONE [place] [facility] Aug 29, 2024 11:15 AM AMBULATORY - SURGERY [facility] Oct 23, 2024 01:00 PM AMBULATORY - MEDICINE [facility] Oct 23, 2024 01:01 PM AM[facility]ULATORY - NONE [place] [facility] Active, Pending, and [...] 24H URINE SP [facility] Jun 28, 2024 12:58 PM Consult Order PALLIATIVE CARE OUTPATIENT [facility] Fin[facility] Special [facility]ocks[facility] Jul 06, 2024 07:22 AM Consult Order CSP PCAFC HOME-CARE ASSESSMENT 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 [employer] Jul 07, 2024 02:02 PM Consult Order 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 Date/Time Temperature Pulse Blood Pressure Respiratory Rate SP02 Pain Height Weight Body Mass Index Source Jun 07, 2024 04:53 PM 0 SONYA GAYLE [facility] Jun 07, 2024 03:56 PM 97 72 112/67 18 99 0 [facility] Jun 07, 2024 01:19 PM 97.1 84 105/71 14 99 [facility] Social History: Smoking Status [...] Date/Time Current Smoking Status Comment Facil ity Jun 07, 2024 03:55 PM CURRENT SMOKER REINIER GAYLE [facility] Tobacco Use History This section includes a history of the smoking, or tobacco-related health factors, that were collected on or before the date of the Encounter. The data comes from the [place] facility where the Encounter took place. 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 NO [facility] Feb 21, 2024 10:15 AM VA-TOBACCO USE MED NO [facility] Feb 21, 2024 10:15 AM VA-TOBACCO USE WI 30 MIN OF WAKEUP [facility] Feb 21, 2024 10:15 AM VA-TOBACCO USER EVERY DAY [facility] Jul 17, 2021 02:27 PM CURRENT SMOKER REINIER GAYLE [facility] Jul 01, 2021 08:55 PM VA-VAAES TOBACCO U SE CURRENT NRT DECLINE [facility] Jul 01, 2021 02:41 PM CURRENT SMOKER REINIER GAYLE [facility] Dec 08, 2020 08:45 PM [...] DISCUSSION PURNIMA ROJAS [facility] Pathology Reports: +/- [...] comes from all [place] treatment facilities. Date/Time Pathology Report Provider Source Jun 07, 2024 05:30 PM LR MICROBIOLOGY RE PORT: Reporting Lab: [facility] [CLIA# [id number]] [address] [place] [address] Accession [UID]: [id number] [[id number]] Received: Jun 07, 2024@18:38 Collection sample: URINE CLEAN CATCH Collection date: Jun 07, 2024 17:30 Site/Specimen: URINE Provider: TODD VALVERDE Test(s) ordered: CULTURE,URINE CLEAN CATCH..... completed: Jun 10, 2024 12:19 * BACTERIOLOGY FINAL REPORT => Jun 12, 2024 11:34 TECH CODE: [id number] CULTURE RESULTS: 1. ENTEROCOCCUS FAECALIS - Quantity: >100,000 CFU/mL Comment: VANCOMYCIN RESISTANT ENTEROCOCCUS SPECIES IDENTIFIED. MDRO NOTIFIED VIA TEAMS GROUP 06/12/24. 2. YEAST - Quantity: 50,000-99,000 CFU/mL Comment: No further workup ANTIBIOTIC SUSCEPTIBILITY TEST RESULTS: 1. ENTEROCOCCUS FAECALIS : Ampicillin.................... S Ciprofloxacin................. R Gentamicin Synergy Screen..... S LEVOFLOXACIN.................. R Linezolid..................... S Nitrofurantoin................ S Penicillin-G.................. S Vancomycin.................... R Bacteriology Remark(s): Notified Paramjit Valverde, Kirsten Chong and Da Cuenca on 06/10/24 =--=--=--=--=--=--=--=--=--=--= --=--=--=--=--=--=--=--=--=--=- -=--=--=--=--=-- Performing Laboratory: Bacteriology Report Performed By: [facility] [CLIA# [id number]] [address] [place] [address] [facility] Encounter Notes: All associated encounter notes This section contains the clinical notes associated to the Encounter. Date/Time Encounter Note(s) Provider Source Jun 07, 2024 08:59 AM UROLOGY CONSULT: LOCAL TITLE: CONSULT UROLOGY NURSE STANDARD TITLE: UROLOGY CONSULT DATE OF NOTE: JUN 07, 2024@08:59 ENTRY DATE: JUN 07, 2024@08:59:58 AUTHOR: GINGER SALCEDO EXP COSIGNER: URGENCY: STATUS: COMPLETED Giralod removal/Fail TOV/CIC Pt arrived via wheelchair with his daughter. Pt and daughter discussed the concern of reinsertion of giraldo catheter after voiding trial asking for pain medication if he requires reinsertion of catheter. Pt declined CIC teaching Pt sts he finds placement in the past intolerable. Pt was adv'd of use of lidocaine for reduction of pain however no other pain medication is given in the clinic for giraldo insertion but would be discussed with the physician. I spoke Dr Caruso who reiterated that there is no pain medicaiton given in clinic which was relayed back to pt, if pt required reinsertion and didn't want lidocaine only he could go to ED. It was recommended to attempt voiding trial. I The pt agreed to trial first. Patient presents to clinic for: Giraldo removal/TOV CIC. Patient is alert and oriented x3. Patient identity confirmed. Yes Patient provided with teaching and opportunity to ask questions. Yes Patient consents to this intervention. Yes Patient allergies reviewed. Yes Patient received: Sulfamethoxazole/Trimethop rim (Bactrim DS) 800 mg/160 mg oral x1 Procedure Notes Voiding Trial: Pt presents with indwelling giraldo 16 catheter secured by securement leg wrap. and connected to leg bag with clear approx 200 cc of clear dark yellow urine. Instilled 160 ml of sterile saline via catheter and pt felt a strong urge to void. Balloon deflated, Giraldo catheter removed and pt transferred to sitting position, provided with urinal. Pt was able to urinate approx 90 cc while defecating. Pt cleaned up and brought into bathroom for further BM. PVR= 160 mL Pt and daughter returned to waiting room and encouraged to drink water for about 1 hr and return to clinic Pt returned to clinic at approx. 1525 hrs. He drank 3 additional glasses of water. He then attempted to urinate felt need to move bowels sat down with no output of any sort. PVR was 223. Pt was given option to have giraldo catheter placed in clinic with lidocaine only or go to ED for placement with possiblity of pain medication. Pt opted to go to ED. ED was called and pt taken to ED. /vivian/ GINGER SALCEDO rn Signed: 06/07/2024 16:08 GINGER SALCEDO [facility]
--- OUTSIDE RECORDS SUMMARY | 2024-07-07 22:26 | XMS_ITS | Encounter Summary ---
Author Name [facility] [facility] [facility] [place] [facility] [place] Address [address] [place] [address] Care Team Providers Care Project Manager Interior Design Name Role Phone KYRA VELASQUEZ Primary Care [...] Ervin [facility] (WNR) MEDICARE ADVANTAGE MCR(W NR) * Aug 23, 2023 [id number] [phone] ANNALISA LOYD ITE PATIENT [facility] (WNR) MEDICARE ADVANTAGE [facility] (WNR) Aug 23, 2020 [id number] [phone] ANNALISA LOYD ITE PATIENT [facility] (WNR) MEDICARE [facility](W NR) Aug 23, 2012 [id number] ANNALISA LOYD ITE PATIENT Selected Encounter This section includes the information on [place] at [place] for the Encounter. Date/Time Encounter Type Encounter Description Reason Pro vider Source May 24, 2024 11:38 AM Outpatient Encounter COMMUNITY CARE CONSULT IHE Encounter Template Text not used by [facility] Plan of Treatment: Future Appointments (+ 6 months) and Future Tests (+/- 45 days) The Plan of Treatment section includes future care activities for the patient [facility] [place] [facility]. This section includes future appointments and [...] [place] [facility] Jun 07, 2024 03:55 PM AMBULATORY - MEDICINE [facility] Jannette GAYLE [facility] Jun 13, 2024 10:00 AM AMBULATORY - SURGERY [facility] Jun 13, 2024 10:01 AM [place] [facility] Jun 15, 2024 09:00 AM AMBULATORY - NONE [place] [facility] Jun 20, 2024 11:30 AM AMBULATORY - NONE [place] [facility] Jun 21, 2024 12:30 PM AMBUL[place] [facility] Jul 11, 2024 10:00 AM AMBULATORY - SURGERY [facility] Jul 11, 2024 10:01 AM AMBULATORY - SURGERY [place] [facility] Jul 24, 2024 11:00 AM AMBULATORY - SURGERY [place] [facility] Jul 27, 2024 10:00 AM AMBULATORY - NONE [place] [facility] Aug 29, 2024 10:30 AM AMBULATORY - NONE [place] [facility] Aug 29, 2024 11:15 AM AMBULATORY - SURGERY [place] [facility] Oct 23, 2024 01:00 PM AMBULATORY - MEDICINE [facility] Oct 23, 2024 01:01 PM AMBULATORY - NONE [place] [facility] Active, Pending, and Scheduled Orders [...] KIT 24H URINE SP [facility] Jun 28, 2024 12:58 PM Consult Order PALLIATIVE CARE OUTPATIENT Cons Permit Review Assistant's [facility] Jul 06, 2024 07:22 AM Consult Order CSP PCAFC HOME-CARE ASSESSMENT OUTPT Cons Permit Review Assistant's [facility] Jul 07, 2024 02:02 PM Consult Order OCCUPATION AL THERAPY OUTPATIENT Cons Permit Review Assistant's [facility] Lab Results: +/- 30 days of [...] URINE No comment entered. Ordering Provider: KAREEM CERAN Report Released Date/Time: Jun 07, 2024 04:57 PM Reporting Lab: [facility] [address] [address] Performing Lab: [facility] [address] [address] URINE COLOR Light-Yellow NOT DEFINED SPECIFIC GRAVITY [...] Type: PLASMA Comment: , Tests performed on [employer] SN:[id number] (405) Ordering Provider: AUBREY FAM Report Released Date/Time: Nov 15, 2023 11:30 AM Reporting Lab: [facility] [address] [address] Performing Lab: [facility] [address] [address] UREA NITROGEN 10 mg/dL 03-16May 04, 2024 10:32 AM [facility] CREATININE WITH eGFR PANEL Specimen Type: PLASMA Comment: , Tests performed on [employer] [id number] (405) Ordering Provider: AUBREY FAM Report Released Date/Time: Nov 15, 2023 11:30 AM Reporting Lab: [facility] [address] [address] Performing Lab: [facility] [address] [address] CREATININE 0.91 mg/dL 0.50-1.50 eGFR(CKD-EPI 2020) 86 [...] 2024 10:15 AM VA-TOBACCO USER EVERY DAY [facility] Tobacco Use History This [...] 21, 2024 10:15 AM VA-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 USE 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 [facility] Feb 21, 2024 10:15 AM VA-TOBACCO USE MED NO [facility] Feb 21, 2024 10:15 AM VA-TOBACCO USE WI 30 MIN OF WAKEUP [facility] Feb 21, 2024 10:15 AM VA-TOBACCO USER EVERY DAY [facility] Jul 17, 2021 02:27 PM CURRENT SMOKER REINIER GAYLE [facility] Jul 01, 2021 08:55 PM VA-VAAES TOBACCO U SE CURRENT NRT DECLINE [facility] Jul 01, 2021 02:41 PM CURRENT SMOKER REINIER GAYLE [facility] Dec 08, 2020 08:45 PM VA-TOBACCO [...] 08, 2017 ADVANCE DIRECTIVE DISCUSSION PURINMA ROJAS [facility] Radiology Reports: +/- [...] CTA ABDOMEN AND PE LVIS: GALINA LOYD [id number] -[phone] M Exm Date: MAY 04, 2024@12:30 Req Phys: VIMLA FAM Pat Loc: [facility]ASCULAR 15 M3RH (Req'g Lo Img Loc: CT SCAN (OOS) Service: Unknown [facility] [place] [address] (Case [id number] COMPLETE) CTA ABDOMEN AND PELVIS (CT Detailed) CPT:88420 Contrast Media : Non-ionic Iodinated Reason for [...] 05, 2024 Date Verified: MAY 05, 2024 Erector Operator E-Sig:/ES/NÉSTOR PASCUAL Report: CTA ABDOMEN AND [...] REQUIRED Primary Interpreting Staff: NÉSTOR PASCUAL, RADIOLOGIST (Erector Operator) /NÉSTOR CONNER [facility] Pathology Reports: +/- 30 days of [...] PORT: Reporting Lab: [facility] [CLIA# [id number]] [address] [place] [address] Accession [UID]: [id number] [[id number]] Received: Jun 07, 2024@18:38 Collection sample: URINE CLEAN CATCH Collection date: Jun 07, 2024 17:30 Site/Specimen: URINE Provider: TODD CERNA Test(s) ordered: CULTURE,URINE CLEAN CATCH..... completed: Jun 10, 2024 12:19 * BACTERIOLOGY FINAL REPORT => Jun 12, 2024 11:34 TECH CODE: [id number] CULTURE RESULTS: 1. ENTEROCOCCUS FAECALIS - Quantity: [...] Report Performed By: [facility] [CLIA# [id number]] [address] [place] [address] [facility] Encounter Notes: All associated encounter notes This section contains the clinical notes associated to the Encounter. Date/Time Encounter Note(s) Provider Source May 24, 2024 11:38 AM NONVA NOTE: LOCAL TITLE: COMMUNITY CARE-RAFAEL SELF PRESENTING CARE COORD PLAN STANDARD TITLE: NONVA NOTE DATE OF NOTE: MAY 24, 2024@11:38 ENTRY DATE: MAY 29, 2024@11:39:09 AUTHOR: PILAR LOCKHART COSIGNER: URGENCY: STATUS: COMPLETED COMMUNITY CARE-RAFAEL SELF PRESENTING CARE COORD PLAN NOTE Has ADDENDA Emergency Notification Intake Date Presenting to the Facility: May Method of Contact: Notified from ECR worklist Notification ID: [id number] [facility] Name: Hospital: [facility] Address: City: [facility] State: [place] Zip Code: [address] Phone : [facility] Point of Contact: Name: Phone: Chief complaint: UTI Primary Diagnosis: Disposition Unknown at time of intake note entry Alerting PACT to ED visit to coordinate any follow-up needed. /vivian/ PILAR TOBAR, RN EMERGENCY SPACE PHYSICIST Signed: 05/29/2024 11:46 Receipt Acknowledged By: 05/30/2024 12:11 /vivian/ JENIFER SHANE LPN 05/31/2024 12:30 /huber GIL RN 05/29/2024 ADDENDUM STATUS: COMPLETED Record of visit requested /huber GIL RN Signed: 05/29/2024 12:30 05/31/2024 ADDENDUM STATUS: COMPLETED contact with of nidia- feels he is doing better- still has bouts of nausea- suggested dry crackers, may help a bit. Will try . Will contact clinic should ther be any further needs/questions/concerns. /huber GIL RN Signed: 05/31/2024 12:34 06/09/2024 ADDENDUM STATUS: COMPLETED Notification ID # [id number] EOC approved under 1703 by the [place](Centralized Authorization of Emergency Care) [employer] Referral # [id number] /vivian/ PILAR TOBAR, RN EMERGENCY SPACE PHYSICIST Signed: 06/09/2024 07:59 PILAR LOCKHART [facility]
--- OUTSIDE RECORDS SUMMARY | 2024-07-07 22:26 | XMS_ITS | Encounter Summary ---
Author Name [facility] [facility] [place] [facility] [place] Address [address] [place] [address] Care Team Providers Care Pure Culture Operator Name Role Phone RON KYRA Primary Care [...] Ervin's Name Patient's Relationship to Policy Ervin [facility] (WNR) MEDICARE ADVANTAGE MCR(W NR) * Aug 23, 2023 [id number] ANNALISA LOYD ITE PATIENT [facility] (WNR) MEDICARE ADVANTAGE [facility] (WNR) Aug 23, 2020 [id number] [phone] ANNALISA LOYD ITE PATIENT [facility] (WNR) MEDICARE ADVANTAGE [facility](W NR) Aug 23, 2012 [id number] ANNALISA LOYD ITJannette PATIENT Selected Encounter This section includes the information on record at [place] for the Encounter. Date/Time Encounter Type Encounter Description Reason Provider Source Jun 07, 2024 03:55 PM EMERGENCY DEPT VISIT [facility] EMERGENCY DEPT ICD-10-CM R33.9 Retention of urine, unspecified NEHEMIAHTODD GHAZAL IHE Encounter Template Text not used by [place] Assessments - Encounter Diagnoses This section includes the primary and secondary diagnoses documented for the Encounter. Date/Time Primary/Secondary Diagnosis Diagnosis Name Provider Source Jun 07, 2024 06:16 PM PRIMARY Retention of urine, unspecified TODD CERNA [facility] Plan of Treatment: [...] AM AMBULATORY - [place] [facility] Jun 15, 2024 09:00 AM AMBULATORY - NONE [place] [facility] Jun 20, 2024 11:30 AM AMBULATORY - NONE [place] [facility] Jun 21, 2024 12:30 PM AMBULATORY - [place] [facility] Jul 11, 2024 10:00 AM AMBULATORY - SURGERY [facility] Jul 11, 2024 10:01 AM AMBUL[place] [facility] Jul 24, 2024 11:00 AM AMBULATORY [place] [facility] Jul 27, 2024 10:00 AM AMBULATORY - NONE [place] [facility] Aug 29, 2024 10:30 AM AMBULATORY - NONE [place] [facility] Aug 29, 2024 11:15 AM AMBULATORY [place] [facility] Oct 23, 2024 01:00 PM AMBULATORY - MEDICINE [facility] Oct 23, 2024 01:01 PM AMBULATORY - NONE [place] [facility] Active, Pending, and Scheduled Orders This section [...] URINE SP [facility] Jun 28, 2024 12:58 PM Consult Order PALLIATIVE CARE OUTPATIENT [facility] Jul 06, 2024 07:22 AM Consult Order CSP PCAFC HOME-CARE ASSESSMENT OUTPT [facility] Jul 07, 2024 02:02 PM Consult Order 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 Ordering Provider: KAREEM CERNA Report Released Date/Time: Jun 07, 2024 04:57 PM Reporting Lab: [facility] [address] [facility] [address] Performing Lab: [facility] [address] [facility] [address] URINE COLOR Light-Yellow NOT DEFINED SPECIFIC GRAVITY [...] Source Jun 07, 2024 04:53 PM 0 MENTOR NALINI [facility] Jun 07, 2024 03:56 PM 97 72 112/67 18 99 0 [facility] Jun 07, 2024 01:19 PM 97.1 84 105/71 14 99 [facility] Social History: [...] > 1 5 LESS THAN 30 YEARS [facility] Feb 21, 2024 10:15 AM VA-TOBACCO USE ADVICE [facility] Feb 21, 2024 10:15 AM VA-TOBACCO USE VEGETABLE BUNCHER NO [facility] Feb [...] PURNIMA ROJAS [facility] Pathology Reports: [...] PM LR MICROBIOLOGY RE PORT: Reporting Lab: [facility] [CLIA# [id number]] [address] [place] [address] Accession [UID]: [id number] [[id number]] Received: Jun 07, 2024@18:38 Collection sample: URINE CLEAN CATCH Collection date: Jun 07, 2024 17:30 Site/Specimen: URINE Provider: TODD CERNA Test(s) ordered: CULTURE,URINE CLEAN CATCH..... completed: Jun 10, 2024 12:19 * BACTERIOLOGY FINAL REPORT => Jun 12, 2024 11:34 TECH CODE: [id number] CULTURE RESULTS: 1. ENTEROCOCCUS FAECALIS - Quantity: [...] -=--=--=--=--=-- Performing Laboratory: Bacteriology Report Performed By: [facility] [CLIA# [id number]] [address] [place] [address] [facility] Encounter Notes: All associated encounter notes This section contains the clinical notes associated to the Encounter. Date/Time Encounter Note(s) Provider Source Jun 26, 2024 10:56 AM ADDENDUM: LOCAL TITLE: Addendum STANDARD TITLE: ADDENDUM DATE OF NOTE: JUN 26, 2024@10:56:30 ENTRY DATE: JUN 26, 2024@10:56:31 AUTHOR: ADITI NICHOLE COSIGNER: URGENCY: STATUS: COMPLETED Message sent to both caregiver daughter Bertha at and Vivian from [facility]: [phone]--requesting they talk about a possible option to have family hied caregiver Chhaya get paid for some of her hours through [employer]. Will cc: the caregiver support team here as an FYI. /es/ ADITI NICHOLE RN Signed: 06/26/2024 11:00 Receipt Acknowledged By: 06/26/2024 11:50 /es/ MODE Holguin [facility] Advocate 06/26/2024 17:13 /es/ MODE Sanchez Caregiver Support Quarter Trimmer --- Original Document --- 06/09/24 [facility] EMERG[facility] DE[facility]MENT CONSULT NOTE: Geriatric Emergency Department ([facility]) Note Template Version 2.2 Geriatric assessments completed as follow up to [facility] ED visit on 06/07/24. [place] was brought down to ED from urology for giraldo cath placement after failed voiding trial, as was finding catheter placement intolerable (due to concern for pain) and asking to go to ER for pain medication. PMH includes: CVA in 2019, fall w/LEFT hip fx s/p repair February 2024 with 3 week SNF rehab stay ([facility]), pressure injuries LEFT shoulder and LEFT buttock, nephrolithiasis, ureteral stents s/p removal, htn, current tobacco use, seizures. Quit drinking after stroke in 2019 per spouse's report. Primary care is through [facility]. On service with [facility] for nursing and PT. 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 [facility] Comments & Recommendations: GV coordinator was asked by ED nurse to provide f/u with and family who are experiencing caregiver stress and overwhelm. GV coordinator spoke to , spouse, and dtr Bertha via phone on 06/08. Spouse is primary caregiver but she now has her own health issues so daughter Bertha and grand dtr Jesi have been a lot more involved the last few months and staying with them often. PATIENT HEALTH PRIORITIES NOTE What Matters Most ([place], Aspiration, Purpose, Values) Connecting (Community, Family, Friends, Significant Other, Spirit and/or Soul): has close connections with Spouse of over 50 years, daughter Bertha, and grand dtr Jesi. 2 sons out of state in [place] and [place] are also active in 's life. Enjoying Life (Productivity, Personal Development, Recharge, Food and Drink, Power of the Mind): spends most of his day now watching You Tube videos. 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 Managing Health (Moving the Body, Symptoms, Quality vs. Length of Life, Engagement in Healthcare Tasks): and spouse are heavy smokers with no plans to quit. Palliative care consult scheduled on 06/20 @ 11:30. Functioning (Dignity, [place], Recharge, Surroundings, Moving the Body): [place] is currently using a walker and has a goal to be able to use a cane again. working with Home PT on this goal. Spouse said he doesn't move unless PT is there telling him to do exercises. Most Important Health-related Goals and Symptoms Health outcome goals: To use a cane to ambulate again. Bothersome symptoms or problems interfering with health goals: unintentional weight loss since treatment of prostate cancer (radiation); down to 121 #, urine retention and need for giraldo catheter. cognitive issues and behavioral changes impacting 's self-care. is not bathing and will give family members hard time if they try to get him to bath or do things he doesn't want to do. Helpful and Bothersome Care/Care Preferences Examples of helpful care (i.e. therapies, medications, treatments, self-management tasks): Family has hired a partition setter caregiver to come on Tuesdays () to give respite to spouse. The 'One Thing' that we should focus on TBD to achieve the health or functional outcome goal: TBD Potential options for care alignment and/or achieving the above goal(s) are the following: Palliative care consult to discuss goals of care. WHAT MATTERS What Matters was addressed at this visit. Comment: [place] would like to walk with a cane again. Family would like more help to get to take showers at home. - The Patient Priorities Care (PPC) approach was used to ask and identify What Matters. MEDICATION Medications were addressed at this visit. Comment: [place]'s spouse is managing all of his medications MENTATION Dementia was addressed at this visit. Comment: has known cognitive impairment effecting judgement and ability to care for himself. Requires support of caregiver spouse, daughter, and granddaughter on routine basis. MOBILITY -------- Mobility was addressed at this visit. Comment: is sedentary but working with home PT for a goal to graduate from walker to cane. s/p hip fracture and surgery February 2024. [facility] Screens: ----- Identification of Seniors as Risk (ISAR) ----- Perform Screen Yes-ISAR help on a regular basis Yes-ISAR hospitalized during the past 6 months Yes-ISAR Serious problems with memory Yes-ISAR More than 3 different medications daily Total Score: 4 ----- Cognitive Impairment Screen (Mini-Cog) ----- Defer screen with known cognitive impairment per chart review. ----- AMAYA Activities of Daily Living (ADLs) ----- Perform Screen Is the patient independent in the following?(No supervision, direction or personal assistance) BATHING No-Needs help bathing more than one part of the body, getting in and out of the tub or shower. Requires total bathing DRESSING No-Needs help with dressing self or needs to be completely dressed. TOILETING No-Needs help transferring to the toilet, cleaning self, or uses bedpan or commode TRANSFERRING No-Needs help in moving from bed to chair or requires complete transfer CONTINENCE No-Is partially or totally incontinent of bowel or bladder FEEDING Yes-Amaya ADLs Feeds self independently Number of Independent ADLs: 1 ----- Falls - Stopping Elderly Accidents, Deaths & Injuries (STEADI) ----- Perform Screen Have you fallen in the past year? Yes How many times have you fallen? 1 Were you injured? hip fracture February 2024 Do you feel unsteady when standing or walking? Yes Do you worry about falling? No Did the patient answer yes to any of the above questions? Yes STEADI Fall Risk Screen Positive ----- Caregiver Colona - Modified Zarit Colona Interview (ZBI) ----- Perform Screen Zarit ZBI (Zarit Colona Interview) screening version was administered. Score is 8 (range 0-16). A score of 8 or more reflects HIGH Caregiver burden and requires follow-up by the Caregiver Upholstery Cleaner or a prompt referral. 1. Do you feel that because of the time you spend with your relative that you do not have enough time for yourself? Sometimes 2. Do you feel stressed between caring for your relative and trying to meet other responsibilities (work/family)? Sometimes 3. Do you feel strained when you are around your relative? Sometimes 4. Do you feel uncertain about what to do about your relative? Sometimes Total Zarit score (0 = no caregiver strain, 16 = extreme caregiver strain): 5-8 Screening time: Greater than 20 minutes Care Coordination Conversation held with: Patient Family/caregiver [facility] care provider [facility] Care Plan: Spouse has not yet connected with a caregiver through [facility] since they are based out of [place] which is out of their area. Family has hired a partition setter caregiver to come on Tuesdays (Chhaya) to give respite to spouse. Daughter would like to explore if there is a way for family to hire Chhaya for more hours with the help of the VA (VD or other program?). Will ask VDC coordinator to discuss any options with spouse/caregiver daughter about any options. GV coordinator sent email to [email or web address] to find out if [facility] has any caregivers in 's area (spouse would not want caregiver coming all the way from [place], [place]). This fiction and nonfiction writer prose is waiting to hear back. SCHEDULED FUTURE APPOINTMENTS: Future Appointments - May@10:00 [facility] TH WOUND OSTOMY PAT May@10:01 [facility] W[facility] MUSIC EDUCATION DIRECTOR May@09:00 COM CARE-NEUROLOGY May@11:30 COM CARE-palliative care consult Aug@10:[address] SCAN 15 B1RC Aug@11:15 JACY ATTENDING K MORRO /vivian/ ADITI NICHOLE RN Signed: 06/12/2024 08:20 Receipt Acknowledged By: 06/12/2024 08:35 /es/ DAMARIS COCHRAN 06/12/2024 08:56 /es/ [facility] Aut[employer] 06/12/2024 09:47 /es/ OJ GIL RN * AWAITING SIGNATURE * FADI REBOLLEDO 06/26/2024 ADDENDUM STATUS: COMPLETED Messaged received from Juli at [facility] who states that she had offered that family could persue having privately hired caregiver (Chhaya) be reimbursed for services through [facility]. Juli confirmed they do not have any caregivers in that area. Message sent to caregiver daughter, Bertha, about above, with contact # for Juli @ [phone]. /es/ ADITI NICHOLE RN Signed: 06/26/2024 11:32 ADITI NICHOLE [facility] Jun 12, 2024 10:01 AM ADDENDUM: LOCAL TITLE: Addendum STANDARD TITLE: ADDENDUM DATE OF NOTE: JUN 12, 2024@10:01:37 ENTRY DATE: JUN 12, 2024@10:01:38 AUTHOR: KYRA VELASQUEZ COSIGNER: URGENCY: STATUS: COMPLETED alerted by ed regarding urine culture results for pt growing VRE. Will place non va short rx for nitrofurantoin x 5 days. will ask pact nurse to notify patient and fax to local pharmacy. Reporting Lab: [facility] [CLIA# [id number]] [address] [place] [address] Accession [UID]: [id number] [[id number]] Received: Jun 07, 2024@18:38 Collection sample: URINE CLEAN CATCH Collection date: Jun 07, 2024 17:30 Site/Specimen: URINE Provider: TODD CERNA Test(s) ordered: CULTURE,URINE CLEAN CATCH..... completed: Jun 10, 2024 12:19 * BACTERIOLOGY FINAL REPORT => Jun 10, 2024 12:19 TECH CODE: [id number] CULTURE RESULTS: 1. ENTEROCOCCUS FAECALIS - Quantity: >100,000 CFU/mL Comment: VANCOMYCIN RESISTANT ENTEROCOCCUS SPECIES IDENTIFIED. 2. YEAST - Quantity: 50,000-99,000 CFU/mL Comment: No further workup ANTIBIOTIC SUSCEPTIBILITY TEST RESULTS: 1. ENTEROCOCCUS FAECALIS : Ampicillin.................. .. S Ciprofloxacin............... .. R Gentamicin Synergy Screen..... S LEVOFLOXACIN................ .. R Linezolid................... .. S Nitrofurantoin.............. .. S Penicillin-G................ .. S Vancomycin.................. .. R /es/ KYRA VELASQUEZ M.D INTERNAL MEDICINE, [facility] Signed: 06/12/2024 10:05 Receipt Acknowledged By: 06/12/2024 12:23 /es/ OJ GIL RN --- Original Document --- 06/07/24 ED MD Note/Emergency Department Physician Note: Emergency Department Note CHIEF COMPLAINT: Urinary Retention HPI: Mr. Galina Loyd is a 78 year old male hx of delirium, depression, bradycardia, AAA, TAA, tobacco & alcohol dependence p/w urinary retention. Patient sent in from urology clinic because he would not tolerate catheter insertion. Failed voiding trial. Patient states he has had fentanyl in the past but also states that he does not want this today. He states he simply wants lidocaine to be inserted into his penis which would have been offered in clinic. I offered patient additional medication such as Toradol or Tylenol however he declines this initially then reconsidered. He was noted to have greater than 200 cc on his postvoid bladder scan. Denies fevers, chills, nausea, vomiting, abdominal pain or flank pain. No dysuria or urgency. Was recently treated for a UTI (MRSA) with Bactrim for a course of 10 days completed 2 days prior. PAST MEDICAL HISTORY Active problems - Computerized Problem List is [...] Injury due to chemical exposure (SNOMED CT [id number]) MEDICATIONS Active Outpatient Medications (excluding Supplies): Active Outpatient Medications Status 1) ATORVASTATIN CALCIUM 40MG TAB TAKE TWO TABLET(S) BY ACTIVE MOUTH EVERY EVENING TO LOWER CHOLESTEROL 2) LACOSAMIDE 50MG TAB TAKE FOUR TABLETS BY MOUTH TWICE ACTIVE (S) A DAY . MAY TAKE 2 EXTRA TABLETS (100MG) IF ANY UTI, FEVER OR ANY SURGICAL PROCEDURE. 3) LACTOBACILLUS ACIDOPHILUS CAP TAKE ONE CAPSULE BY ACTIVE MOUTH ONCE DAILY FOR DIGESTIVE CARE 4) MELATONIN 3MG CAP/TAB TAKE ONE CAP/TAB BY MOUTH AT ACTIVE BEDTIME NEEDED FOR SLEEP 5) MIDAZOLAM 5MG/SPRAY SOLN NASAL SPRAY SPRAY 1 SPRAY ACTIVE INTRANASALLY ONCE NEEDED FOR CONVULSIVE SEIZURE, MAY REPEAT ONCE IN 10 MINUTES IF ANOTHER SEIZURE 6) POTASSIUM CHLORIDE 10MEQ SA TAB TAKE ONE TABLET BY ACTIVE MOUTH EVERY MORNING WITH BREAKFAST TO SUPPLEMENT POTASSIUM 7) TAMSULOSIN HCL 0.4MG CAP TAKE TWO CAPSULES BY MOUTH ACTIVE ONCE DAILY 30 MINUTES AFTER THE SAME MEALTIME EACH DAY FOR PROSTATE/URINARY SYMPTOMS. 8) VASHE WOUND THERAPY TOP SOLN APPLY APPLICATION ACTIVE TOPICALLY NEEDED PRESSURE INJURIES ALLERGIES ROCURONIUM BROMIDE APR 07, 2024 (observed) Symptoms: ANAPHYLAXIS HYPOTENSION ANCEF INJECTION APR 07, 2024 (observed) Symptoms: ANAPHYLAXIS HYPOTENSION OMNIPAQUE 350 INJECTION SEP 15, 2016 (observed) Symptoms: URTICARIA REVIEW OF SYSTEMS [X] Other than pertinent positives and negatives noted above and in HPI, all other systems on complete review are negative. VITALS Temp: 97 F [36.1 C] (06/07/2024 15:56) Pulse: 72 (06/07/2024 15:56) BP: 112/67 (06/07/2024 15:56) Resp: 18 (06/07/2024 15:56) SP02: 06/07/24 @ 1556 PULSE OXIMETRY: 99 HT(in): 69 in [175.3 cm] (04/06/2024 12:44) WT(lbs):121.7 lb [55.20 kg] (05/08/2024 14:31) PHYSICAL EXAM: VITAL SIGNS: I have reviewed the vital signs GENERAL: well-dressed, well-appearing, no acute distress, non-toxic SKIN: No rash, sores, lesions noted HEENT: Normocephalic, PEARTL, no scleral icterus. NECK: Supple, trachea midline RESPIRATORY: No increased wob, no audible wheezing ABDOMEN: soft, non-distended, non-tender PSYCHIATRIC: appropriate mood and affect NEUROLOGIC: CN 2-12 grossly intact, moving all 4 extremities spontaneously, normal gait ASSESSMENT Mr. Galina Loyd is a 78 year old male hx of delirium, depression, bradycardia, AAA, TAA, tobacco & alcohol dependence p/w urinary retention. Patient had recent UTI, completed 10-day course of Bactrim and failed voiding trial in urology clinic. He presents to the ED today for additional pain medicine as he declined Uro-Jet in clinic as the sole analgesic for his Giraldo placement. In the ED he is well-appearing but does appear to be slightly confused talking in circles in regards to the pain management. After speaking to his daughter she states that this is his baseline he has a history of stroke which has affected his cognition. He denies any urinary symptoms currently. He was amenable to IM Toradol in addition to Uro-Jet for his Giraldo placement. He already received a prophylactic dose of Bactrim in urology clinic. Will send off UA but he should have eradicated the UTI with a 10-day course of Bactrim. UA shows some pyuria and hematuria but improved from previous UAs. Since he is asymptomatic we will conservatively, watch him and have PCP follow- up his urine cultures. PLAN urojet, toradol, dc MEDICAL DECISION MAKING MANAGEMENT COURSE IN THE ED -Patient examined and assessed by me -Vital signs reviewed -Giraldo placed -Uro-Jet and Toradol given -Patient discharged IMPRESSION Urinary Retention DISPOSITION: [X] DISCHARGED [ ] TRANSFERRED TO: [ ] LEFT AGAINST MEDICAL ADVICE [ ] ADMITTED TO: CONDITION: [X] IMPROVED [ ] SATISFACTORY [ ] UNCHANGED This case was discussed with Dr. Hassan who agrees with the exam and treatment. The following note has been dictated using [employer]. It has been proofread, but there may be errors due to the dictation software. PERSONAL PROTECTIVE EQUIPMENT (PPE): PA used appropriate PPE during every encounter with the patient. /vivian/ TODD CERNA PHYSICIAN SCHOOL OPERATIONS MANAGER Signed: 06/07/2024 17:56 Receipt Acknowledged By: 06/08/2024 07:59 /vivian/ Sonido Hassan MD Physician, Emergency Department 06/08/2024 08:20 /vivian/ KYRA VELASQUEZ M.D INTERNAL MEDICINE, [facility] 06/08/2024 ADDENDUM STATUS: COMPLETED Discussed with PA. Agree with plan of care. /vivian/ Sonido Hassan MD Physician, Emergency Department Signed: 06/08/2024 07:59 KYRA VELASQUEZ [facility] Jun 09, 2024 04:16 PM GERIATRIC MEDICINE NURSING CONSULT: LOCAL TITLE: [facility] EMERGENCY DEPARTMENT CONSULT NOTE STANDARD TITLE: GERIATRIC MEDICINE NURSING CONSULT DATE OF NOTE: JUN 09, 2024@16:16 ENTRY DATE: JUN 09, 2024@16:16:23 AUTHOR: ADITI NICHOLE COSIGNER: URGENCY: STATUS: COMPLETED [facility] EM[facility] CONSULT NOTE Has ADDENDA Geriatric Emergency Department ([facility]) Note Template Version 2.2 Geriatric assessments completed as follow up to [facility] ED visit on 06/07/24. [place] was brought down to ED from urology for giraldo cath placement after failed voiding trial, as was finding catheter placement intolerable (due to concern for pain) and asking to go to ER for pain medication. PMH includes: CVA in 2019, fall w/LEFT hip fx s/p repair February 2024 with 3 week SNF rehab stay ([facility]), pressure injuries LEFT shoulder and LEFT buttock, nephrolithiasis, ureteral stents s/p removal, htn, current tobacco use, seizures. Quit drinking after stroke in 2019 per spouse's report. Primary care is through [facility]. On service with [facility] for nursing and PT. 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 [facility] Comments & Recommendations: GV coordinator was asked by ED nurse to provide f/u with and family who are experiencing caregiver stress and overwhelm. GV coordinator spoke to , spouse, and dtr Bertha via phone on 06/08. Spouse is primary caregiver but she now has her own health issues so daughter Bertha and grand anna Dennison have been a lot more involved the last few months and staying with them often. PATIENT HEALTH PRIORITIES NOTE What Matters Most ([place], Aspiration, Purpose, Values) Connecting (Community, Family, Friends, Significant Other, Spirit and/or Soul): [place] has close connections with Spouse of over 50 years, daughter Bertha, and grand anna Dennison. 2 sons out of state in [place] and [place] are also active in 's life. Enjoying Life (Productivity, Personal Development, Recharge, Food and Drink, Power of the Mind): [place] spends most of his day now watching You Tube videos. 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 Managing Health (Moving the Body, Symptoms, Quality vs. Length of Life, Engagement in Healthcare Tasks): and spouse are heavy smokers with no plans to quit. Palliative care consult scheduled on 06/20 @ 11:30. Functioning (Dignity, [place], Recharge, Surroundings, Moving the Body): is currently using a walker and has a goal to be able to use a cane again. working with Home PT on this goal. Spouse said he doesn't move unless PT is there telling him to do exercises. Most Important Health-related Goals and Symptoms Health outcome goals: To use a cane to ambulate again. Bothersome symptoms or problems interfering with health goals: unintentional weight loss since treatment of prostate cancer (radiation); down to 121 #, urine retention and need for giraldo catheter. cognitive issues and behavioral changes impacting 's self-care. is not bathing and will give family members hard time if they try to get him to bath or do things he doesn't want to do. Helpful and Bothersome Care/Care Preferences Examples of helpful care (i.e. therapies, medications, treatments, self-management tasks): Family has hired a partition setter caregiver to come on Tuesdays (Chhaya) to give respite to spouse. The 'One Thing' that we should focus on TBD to achieve the health or functional outcome goal: TBD Potential options for care alignment and/or achieving the above goal(s) are the following: Palliative care consult to discuss goals of care. WHAT MATTERS What Matters was addressed at this visit. Comment: [place] would like to walk with a cane again. Family would like more help to get to take showers at home. - The Patient Priorities Care (PPC) approach was used to ask and identify What Matters. MEDICATION Medications were addressed at this visit. Comment: 's spouse is managing all of his medications MENTATION Dementia was addressed at this visit. Comment: has known cognitive impairment effecting judgement and ability to care for himself. Requires support of caregiver spouse, daughter, and granddaughter on routine basis. MOBILITY -------- Mobility was addressed at this visit. Comment: [place] is sedentary but working with home PT for a goal to graduate from walker to cane. s/p hip fracture and surgery February 2024. Maylin-ED Screens: ----- Identification of Seniors as Risk (ISAR) ----- Perform Screen Yes-ISAR help on a regular basis Yes-ISAR hospitalized during the past 6 months Yes-ISAR Serious problems with memory Yes-ISAR More than 3 different medications daily Total Score: 4 ----- Cognitive Impairment Screen (Mini-Cog) ----- Defer screen [place] with known cognitive impairment per chart review. ----- AMAYA Activities of Daily Living (ADLs) ----- Perform Screen Is the patient independent in the following?(No supervision, direction or personal assistance) BATHING No-Needs help bathing more than one part of the body, getting in and out of the tub or shower. Requires total bathing DRESSING No-Needs help with dressing self or needs to be completely dressed. TOILETING No-Needs help transferring to the toilet, cleaning self, or uses bedpan or commode TRANSFERRING No-Needs help in moving from bed to chair or requires complete transfer CONTINENCE No-Is partially or totally incontinent of bowel or bladder FEEDING Yes-Amaya ADLs Feeds self independently Number of Independent ADLs: 1 ----- Falls - Stopping Elderly Accidents, Deaths & Injuries (STEADI) ----- Perform Screen Have you fallen in the past year? Yes How many times have you fallen? 1 Were you injured? hip fracture February 2024 Do you feel unsteady when standing or walking? Yes Do you worry about falling? No Did the patient answer yes to any of the above questions? Yes STEADI Fall Risk Screen Positive ----- Caregiver Colona - Modified Zarit Colona Interview (ZBI) ----- Perform Screen Zarit ZBI (Zarit Colona Interview) screening version was administered. Score is 8 (range 0-16). A score of 8 or more reflects HIGH Caregiver burden and requires follow-up by the Caregiver Upholstery Cleaner or a prompt referral. 1. Do you feel that because of the time you spend with your relative that you do not have enough time for yourself? Sometimes 2. Do you feel stressed between caring for your relative and trying to meet other responsibilities (work/family)? Sometimes 3. Do you feel strained when you are around your relative? Sometimes 4. Do you feel uncertain about what to do about your relative? Sometimes Total Zarit score (0 = no caregiver strain, 16 = extreme caregiver strain): 5-8 Screening time: Greater than 20 minutes Care Coordination Conversation held with: Patient Family/caregiver VA care provider MAYLIN-ED Care Plan: Spouse has not yet connected with a caregiver through [facility] since they are based out of [place] which is out of their area. Family has hired a partition setter caregiver to come on Tuesdays (Chhaya) to give respite to spouse. Daughter would like to explore if there is a way for family to hire Chhaya for more hours with the help of the VA (VD or other program?). Will ask VDC coordinator to discuss any options with spouse/caregiver daughter about any options. GV coordinator sent email to [email or web address] to find out if [facility] has any caregivers in 's area (spouse would not want caregiver coming all the way from [place], [place]). This fiction and nonfiction writer prose is waiting to hear back. SCHEDULED FUTURE APPOINTMENTS: Future Appointments - May@10:00 [facility] TH WOUND OSTOMY PAT May@10:01 [facility] WOUND MUSIC EDUCATION DIRECTOR May@09:00 COM CARE-NEUROLOGY May@11:30 COM CARE-palliative care consult Aug@10:30 [facility] RAD CT SCAN 15 B1RC Aug@11:15 [facility] ATTENDING K M3RH /es/ ADITI NICHOLE RN Signed: 06/12/2024 08:20 Receipt Acknowledged By: 06/12/2024 08:35 /es/ DAMARIS COCHRAN 06/12/2024 08:56 /es/ [facility] [employer] 06/12/2024 09:47 /es/ OJ GIL RN * AWAITING SIGNATURE * FADI REBOLLEDO 06/26/2024 ADDENDUM STATUS: COMPLETED Message sent to both caregiver daughter Bertha at and Vivian from [employer]: [phone]--requesting they talk about a possible option to have family hied caregiver Chhaya get [facility] for some of her hours [facility]. Will cc: the caregiver support team here as an FYI. /es/ ADITI NICHOLE RN Signed: 06/26/2024 11:00 Receipt Acknowledged By: * AWAITING SIGNATURE * RASHID CHINO * AWAITING SIGNATURE * EFRAÍN GARCES 06/26/2024 ADDENDUM STATUS: COMPLETED Messaged received from Juli at [facility] who states that she had offered that family could persue having privately hired caregiver (Chhaya) be reimbursed for services through [facility]. Juli confirmed they do not have any caregivers in that area. Message sent to caregiver daughter, Bertha, about above, with contact # for Juli @ [phone]. /vivian/ ADITI NICHOLE RN Signed: 06/26/2024 11:32 ADITI NICHOLE [facility] [facility] Jun 07, 2024 06:27 PM NURSING INPATIENT NOTE: LOCAL TITLE: [facility] NURSING FREQUENT DOCUMENTATION STANDARD TITLE: NURSING INPATIENT NOTE DATE OF NOTE: JUN 07, 2024@18:27 ENTRY DATE: JUN 07, 2024@18:27:23 AUTHOR: JUANA ASHLEYIGNER: URGENCY: STATUS: COMPLETED Version 2.4 Charting in accordance with [place] APPROVED [place] STANDARD (VTAES) ACUTE INPATIENT/REHABILITATION NURSING ADMISSION SCREENING, ASSESSMENT, AND STANDARDS OF CARE ====== GENITOURINARY ====== Urinary Catheter: Type: Indwelling: New Insertion/Application: Date/Time of insertion: May@17:30 Type: Urethral: Regular Size (Slovenian): 16 Balloon inflation (mL): 10 Indication(s): Acute urinary retention Catheter Associated Urinary Tract Infection (CAUTI) Prevention Insertion Bundle Completed - Hands washed prior to donning sterile gloves - Sterile gloves worn by machine cloth examiner - Sterile drape and sponges - Sterile periurethral cleaning - Single use of lubricant and jelly by machine cloth examiner Catheter secured: Right leg Comment: Pt tolerated well with urojet and toradol /es/ JUANA ASHLEY Registered Nurse Signed: 06/07/2024 18:39 JUANA ASHLEY [facility] Jun 07, 2024 05:09 PM EMERGENCY DEPT DIS CHARGE NOTE: LOCAL TITLE: Emergency Dept Discharge Instructions STANDARD TITLE: EMERGENCY DEPT DISCHARGE NOTE DATE OF NOTE: JUN 07, 2024@17:09 ENTRY DATE: JUN 07, 2024@17:09:15 AUTHOR: TODD CERNA COSIGNER: URGENCY: STATUS: COMPLETED DISCHARGE INSTRUCTIONS FOR: MR. GALINA LOYD [address], [place] [id number] JUN 07, 2024 YOUR DIAGNOSIS: Urinary Retention TREATMENT YOU RECEIVED IN THE EMERGENCY DEPARTMENT: giraldo placement, ua, toradol, viscous lidocaine (urojet) RESULTS: Your urine culture is pending. UA showed some white blood cells and red blood cells but improved from last urinalysis TREATMENT INSTRUCTIONS UPON DISCHARGE FROM THE EMERGENCY DEPARTMENT, INCLUDING INSTRUCTIONS FOR MEDICATIONS: Continue home medications. your primary care provider will follow up your urine cultures ACTIVE MEDICATIONS: Active Outpatient Medications (excluding Supplies): Active Outpatient Medications Status 1) ATORVASTATIN CALCIUM 40MG TAB TAKE TWO TABLET(S) BY ACTIVE MOUTH EVERY EVENING TO LOWER CHOLESTEROL 2) LACOSAMIDE 50MG TAB TAKE FOUR TABLETS BY MOUTH TWICE ACTIVE (S) A DAY . MAY TAKE 2 EXTRA TABLETS (100MG) IF ANY UTI, FEVER OR ANY SURGICAL PROCEDURE. 3) LACTOBACILLUS ACIDOPHILUS CAP TAKE ONE CAPSULE BY ACTIVE MOUTH ONCE DAILY FOR DIGESTIVE CARE 4) MELATONIN 3MG CAP/TAB TAKE ONE CAP/TAB BY MOUTH AT ACTIVE BEDTIME NEEDED FOR SLEEP 5) MIDAZOLAM 5MG/SPRAY SOLN NASAL SPRAY SPRAY 1 SPRAY ACTIVE INTRANASALLY ONCE NEEDED FOR CONVULSIVE SEIZURE, MAY REPEAT ONCE IN 10 MINUTES IF ANOTHER SEIZURE 6) POTASSIUM CHLORIDE 10MEQ SA TAB TAKE ONE TABLET BY ACTIVE MOUTH EVERY MORNING WITH BREAKFAST TO SUPPLEMENT POTASSIUM 7) TAMSULOSIN HCL 0.4MG CAP TAKE TWO CAPSULES BY MOUTH ACTIVE ONCE DAILY 30 MINUTES AFTER THE SAME MEALTIME EACH DAY FOR PROSTATE/URINARY SYMPTOMS. 8) VASHE WOUND THERAPY TOP SOLN APPLY APPLICATION ACTIVE TOPICALLY NEEDED PRESSURE INJURIES INSTRUCTIONS FOR FOLLOW UP: Follow up with urology and your PCP as needed A copy of these instructions was given to the patient and/or caregiver. The instructions were reviewed with the patient and/or caregiver. The patient and/or caregiver showed understanding of the instructions before discharge from the Emergency Department. TREATING PHYSICIAN: TODD CERNA PHYSICIAN SCHOOL OPERATIONS MANAGER SCHEDULED FUTURE APPOINTMENTS: Future Appointments - May@10:00 [facility] WOUND OSTOMY PAT May@10:01 [facility] WOUND MUSIC EDUCATION DIRECTOR May@09:00 COM CARE-NEUROLOGY May@11:30 COM CARE-OTHER Aug@10:30 [facility] RAD CT SCAN 15 B1RC Aug@11:15 [facility] ATTENDING K M3RH During normal business hours Wednesday-Wednesday 8-4 PM: If you have any problems, your parts sales counterperson or a doctor can be reached by calling the telephone advice line at: P) [phone], ext. [phone] Toll-free (P) [phone] ext. [phone] If you are a in crisis, free confidential support is available 15/03. To access, call the Veterans Crisis Line by dialing 252 and press 1. You may also text [phone] or start an online chat session at [email or web address] Crisis support for the deaf and hard of hearing can be reached by using your preferred relay service or dial 522 then 010. /es/ TODD CERNA PHYSICIAN SCHOOL OPERATIONS MANAGER Signed: 06/07/2024 17:47 TODD CERNA [facility] Jun 07, 2024 04:53 PM NURSING EMERGENCY DEPT NOTE: LOCAL TITLE: ED RN NOTE/EMERGENCY DEPARTMENT NOTE STANDARD TITLE: NURSING EMERGENCY DEPT NOTE DATE OF NOTE: JUN 07, 2024@16:53 ENTRY DATE: JUN 07, 2024@16:53:48 AUTHOR: JUANA ASHLEY COSIGNER: URGENCY: STATUS: COMPLETED Full ED Note Documentation System Review: * Falls Patient greater than 70 years old? Yes [place] declines falls clinic evaluation *Pain Assessment Pain Details: Level of pain: 0 Neurological: Alert: Yes Oriented to: person: Yes place: Yes time: Yes situation: No PERRLA: Yes RIGHT Pupil Size: 2 LEFT Pupil Size: 2 Speech clear: Yes Facial symmetry: Yes BENEDICT: Yes History of head trauma? No Respiratory: Lung Sounds: Left: Clear Right: Clear Unlabored: Yes Cough: No Rate/Rhythm: Yes Renal/: Voiding: No Bladder Scan amount: 204 Giraldo on arrival: No 1555- Pt arrived to the ED from Urology clinic. Pt failed void trial and needed to have giraldo replaced. Pt refused for giraldo to be placed unless he received pain medications. Pt triaged and placed in bed 5 1610- Tello DAMON at bedside for assessment. Bladder scan- 206 ml 1615- Pt alert to person, place, and time but patient is very forgetful with short term memory. Explained to patient the plan for medication before giraldo insertion. Pt agreed to plan. Daughter at bedside. 1645- IM Ketorolac administered per OCT. 1730- Giraldo inserted per order using sterile technique. Pt premedicated with uroject- See [facility]. Emotional support provided to patient. Pt tolerated well with medications. Pt voices satisfaction with how giraldo was placed. Urinary Catheter: Type: Indwelling: New Insertion/Application: Date/Time of insertion: May@17:30 Type: Urethral: Regular Size (Slovenian): 16 Balloon inflation (mL): 10 Indication(s): Acute urinary retention Catheter Associated Urinary Tract Infection (CAUTI) Prevention Insertion Bundle Completed - Hands washed prior to donning sterile gloves - Sterile gloves worn by machine cloth examiner - Sterile drape and sponges - Sterile periurethral cleaning - Single use of lubricant and jelly by machine cloth examiner Catheter secured: Right leg Comment: Pt tolerated well with urojet and Toradol 1800- Changed giraldo bag to leg bag. Giraldo care instructions were provided to patient and daughter about giraldo care at home. Extra supplies given to daughter along with a print out to refer to. Explained to patient a daughter what to look for infection and occlusion and when to be evaluated. Instructed patient how to clean giraldo, when to change bags, and bag care. Pts daughter voices good understanding. 0- Discharge instructions provided to patient and daughter. Instructed pt to follow up with urology and PCP and to come back to the ED if signs of occlusion or infection are noticed. Pt assisted with dressing and assisted out to care via wheel chair. Pt ambulated and got into care with minimal assist. Time patient discharged from ED: 1829 /es/ JUANA ASHLEY Registered Nurse Signed: 06/07/2024 18:38 JUANA ASHLEY [facility] [place] [facility] Jun 07, 2024 04:35 PM EMERGENCY DEPT NOT E: LOCAL TITLE: ED MD Note/Emergency Department Physician Note STANDARD TITLE: EMERGENCY DEPT NOTE DATE OF NOTE: JUN 07, 2024@16:35 ENTRY DATE: JUN 07, 2024@16:35:34 AUTHOR: TODD CERNA COSIGNER: URGENCY: STATUS: COMPLETED ED MD Note/Emergency Department Physician Note Has ADDENDA Emergency Department Note CHIEF COMPLAINT: Urinary Retention HPI: Mr. Galina Loyd is a 78 year old male hx of delirium, depression, bradycardia, AAA, TAA, tobacco & alcohol dependence p/w urinary retention. Patient sent in from urology clinic because he would not tolerate catheter insertion. Failed voiding trial. Patient states he has had fentanyl in the past but also states that he does not want this today. He states he simply wants lidocaine to be inserted into his penis which would have been offered in clinic. I offered patient additional medication such as Toradol or Tylenol however he declines this initially then reconsidered. He was noted to have greater than 200 cc on his postvoid bladder scan. Denies fevers, chills, nausea, vomiting, abdominal pain or flank pain. No dysuria or urgency. Was recently treated for a UTI (MRSA) with Bactrim for a course of 10 days completed 2 days prior. PAST MEDICAL HISTORY Active problems - Computerized Problem List is [...] Injury due to chemical exposure (SNOMED CT 208896781) MEDICATIONS Active Outpatient Medications (excluding Supplies): Active Outpatient Medications Status 1) ATORVASTATIN CALCIUM 40MG TAB TAKE TWO TABLET(S) BY ACTIVE MOUTH EVERY EVENING TO LOWER CHOLESTEROL 2) LACOSAMIDE 50MG TAB TAKE FOUR TABLETS BY MOUTH TWICE ACTIVE (S) A DAY . MAY TAKE 2 EXTRA TABLETS (100MG) IF ANY UTI, FEVER OR ANY SURGICAL PROCEDURE. 3) LACTOBACILLUS ACIDOPHILUS CAP TAKE ONE CAPSULE BY ACTIVE MOUTH ONCE DAILY FOR DIGESTIVE CARE 4) MELATONIN 3MG CAP/TAB TAKE ONE CAP/TAB BY MOUTH AT ACTIVE BEDTIME NEEDED FOR SLEEP 5) MIDAZOLAM 5MG/SPRAY SOLN NASAL SPRAY SPRAY 1 SPRAY ACTIVE INTRANASALLY ONCE NEEDED FOR CONVULSIVE SEIZURE, MAY REPEAT ONCE IN 10 MINUTES IF ANOTHER SEIZURE 6) POTASSIUM CHLORIDE 10MEQ SA TAB TAKE ONE TABLET BY ACTIVE MOUTH EVERY MORNING WITH BREAKFAST TO SUPPLEMENT POTASSIUM 7) TAMSULOSIN HCL 0.4MG CAP TAKE TWO CAPSULES BY MOUTH ACTIVE ONCE DAILY 30 MINUTES AFTER THE SAME MEALTIME EACH DAY FOR PROSTATE/URINARY SYMPTOMS. 8) VASHE WOUND THERAPY TOP SOLN APPLY APPLICATION ACTIVE TOPICALLY NEEDED PRESSURE INJURIES ALLERGIES ROCURONIUM BROMIDE APR 07, 2024 (observed) Symptoms: ANAPHYLAXIS HYPOTENSION ANCEF INJECTION APR 07, 2024 (observed) Symptoms: ANAPHYLAXIS HYPOTENSION OMNIPAQUE 350 INJECTION SEP 15, 2016 (observed) Symptoms: URTICARIA REVIEW OF SYSTEMS [X] Other than pertinent positives and negatives noted above and in HPI, all other systems on complete review are negative. VITALS Temp: 97 F [36.1 C] (06/07/2024 15:56) Pulse: 72 (06/07/2024 15:56) BP: 112/67 (06/07/2024 15:56) Resp: 18 (06/07/2024 15:56) SP02: 06/07/24 @ 1556 PULSE OXIMETRY: 99 HT(in): 69 in [175.3 cm] (04/06/2024 12:44) WT(lbs):121.7 lb [55.20 kg] (05/08/2024 14:31) PHYSICAL EXAM: VITAL SIGNS: I have reviewed the vital signs GENERAL: well-dressed, well-appearing, no acute distress, non-toxic SKIN: No rash, sores, lesions noted HEENT: Normocephalic, PEARTL, no scleral icterus. NECK: Supple, trachea midline RESPIRATORY: No increased wob, no audible wheezing ABDOMEN: soft, non-distended, non-tender PSYCHIATRIC: appropriate mood and affect NEUROLOGIC: CN 2-12 grossly intact, moving all 4 extremities spontaneously, normal gait ASSESSMENT Mr. Galina Loyd is a 78 year old male hx of delirium, depression, bradycardia, AAA, TAA, tobacco & alcohol dependence p/w urinary retention. Patient had recent UTI, completed 10-day course of Bactrim and failed voiding trial in urology clinic. He presents to the ED today for additional pain medicine as he declined Uro-Jet in clinic as the sole analgesic for his Giraldo placement. In the ED he is well-appearing but does appear to be slightly confused talking in circles in regards to the pain management. After speaking to his daughter she states that this is his baseline he has a history of stroke which has affected his cognition. He denies any urinary symptoms currently. He was amenable to IM Toradol in addition to Uro-Jet for his Giraldo placement. He already received a prophylactic dose of Bactrim in urology clinic. Will send off UA but he should have eradicated the UTI with a 10-day course of Bactrim. UA shows some pyuria and hematuria but improved from previous UAs. Since he is asymptomatic we will conservatively, watch him and have PCP follow- up his urine cultures. PLAN urojet, toradol, dc MEDICAL DECISION MAKING MANAGEMENT COURSE IN THE ED -Patient examined and assessed by me -Vital signs reviewed -Giraldo placed -Uro-Jet and Toradol given -Patient discharged IMPRESSION Urinary Retention DISPOSITION: [X] DISCHARGED [ ] TRANSFERRED TO: [ ] LEFT AGAINST MEDICAL ADVICE [ ] ADMITTED TO: CONDITION: [X] IMPROVED [ ] SATISFACTORY [ ] UNCHANGED This case was discussed with Dr. Hassan who agrees with the exam and treatment. The following note has been dictated using [employer]. It has been proofread, but there may be errors due to the dictation software. PERSONAL PROTECTIVE EQUIPMENT (PPE): PA used appropriate PPE during every encounter with the patient. /vivian/ TODD CERNA PHYSICIAN SCHOOL OPERATIONS MANAGER Signed: 06/07/2024 17:56 Receipt Acknowledged By: 06/08/2024 07:59 /vivian/ Sonido Hassan MD Physician, Emergency Department 06/08/2024 08:20 /es/ KYRA VELASQUEZ M.D INTERNAL MEDICINE, [facility] 06/08/2024 ADDENDUM STATUS: COMPLETED Discussed with PA. Agree with plan of care. /vivian/ Sonido Hassan MD Physician, Emergency Department Signed: 06/08/2024 07:59 06/12/2024 ADDENDUM STATUS: COMPLETED alerted by ed regarding urine culture results for pt growing VRE. Will place non va short rx for nitrofurantoin x 5 days. will ask pact nurse to notify patient and fax to local pharmacy. Reporting Lab: [facility] [CLIA# [id number]] [address] [place] [address] Accession [UID]: [id number] [[id number]] Received: Jun 07, 2024@18:38 Collection sample: URINE CLEAN CATCH Collection date: Jun 07, 2024 17:30 Site/Specimen: URINE Provider: TODD CERNA Test(s) ordered: CULTURE,URINE CLEAN CATCH..... completed: Jun 10, 2024 12:19 * BACTERIOLOGY FINAL REPORT => Jun 10, 2024 12:19 TECH CODE: [id number] CULTURE RESULTS: 1. ENTEROCOCCUS FAECALIS - Quantity: >100,000 CFU/mL Comment: VANCOMYCIN RESISTANT ENTEROCOCCUS SPECIES IDENTIFIED. 2. YEAST - Quantity: 50,000-99,000 CFU/mL Comment: No further workup ANTIBIOTIC SUSCEPTIBILITY TEST RESULTS: 1. ENTEROCOCCUS FAECALIS : Ampicillin.................. .. S Ciprofloxacin............... .. R Gentamicin Synergy Screen..... S LEVOFLOXACIN................ .. R Linezolid................... .. S Nitrofurantoin.............. .. S Penicillin-G................ .. S Vancomycin.................. .. R /es/ KYRA VELASQUEZ M.D INTERNAL MEDICINE, [facility] Signed: 06/12/2024 10:05 Receipt Acknowledged By: * AWAITING SIGNATURE * OJ GIL DANIEL CHARLES [place] [facility] Jun 07, 2024 03:56 PM EMERGENCY DEPT TRI AGE NOTE: LOCAL TITLE: EMERGENCY DEPT TRIAGE NOTE STANDARD TITLE: EMERGENCY DEPT TRIAGE NOTE DATE OF NOTE: JUN 07, 2024@15:56 ENTRY DATE: JUN 07, 2024@15:56:56 AUTHOR: NIDA ROBB EXP COSIGNER: URGENCY: STATUS: COMPLETED Emergency Department/Urgent Care Center Triage Patient age: 78 Sex: MALE On arrival patient was: WHEELCHAIR Location Patient came from: Urology clinic Patient phone number: Have you traveled recently No Allergies: OMNIPAQUE 350 INJECTION, ANCEF INJECTION, ROCURONIUM BROMIDE Chief Complaint: Patient presents via wheelchair from urology clinic; patient reports he was here in clinic for a void trial post-catheter removal, patient reports he had a catheter in place for urinary retention with issues with the catheter, he went to nearby ER and had it replaced; he reports he can't stand the pain so he needs pain medication to assist with catheter placement; he reports that the outside hospital gave him fentanyl for catheter placement; patient reports that he was here for a void trial, was unable to void so needed a catheter replaced but refused the catheter because he needs more pain medication other than than lidocaine with catheter placement; urology nurse brought patient and reports PVR done right before arrival was 222ml; patient believes the issues is his prostate. Daughter not present in triage with RN but was brought to Room 5 ER and present for conversation with PA. The patient is a fall risk. Intervention: Ambulate with assistance Vital Signs * BP: 112/67 (06/07/2024 15:56) Pulse: 72 (06/07/2024 15:56) Temp: 97 F [36.1 C] (06/07/2024 15:56) Resp: 18 (06/07/2024 15:56) HT(in): 69 in [175.3 cm] (04/06/2024 12:44) WT(lbs):121.7 lb [55.20 kg] (05/08/2024 14:31) 06/07/24 @ 1556 PULSE OXIMETRY: 99 Pain: 0 (06/07/2024 15:56) Emergency Severity Index (AOLNZO) level Level 3 Current Medications: Active Outpatient Medications (excluding Supplies): Active Outpatient Medications Status 1) ATORVASTATIN CALCIUM 40MG TAB TAKE TWO TABLET(S) BY ACTIVE MOUTH EVERY EVENING TO LOWER CHOLESTEROL 2) LACOSAMIDE 50MG TAB TAKE FOUR TABLETS BY MOUTH TWICE ACTIVE (S) A DAY . MAY TAKE 2 EXTRA TABLETS (100MG) IF ANY UTI, FEVER OR ANY SURGICAL PROCEDURE. 3) LACTOBACILLUS ACIDOPHILUS CAP TAKE ONE CAPSULE BY ACTIVE MOUTH ONCE DAILY FOR DIGESTIVE CARE 4) MELATONIN 3MG CAP/TAB TAKE ONE CAP/TAB BY MOUTH AT ACTIVE BEDTIME NEEDED FOR SLEEP 5) MIDAZOLAM 5MG/SPRAY SOLN NASAL SPRAY SPRAY 1 SPRAY ACTIVE INTRANASALLY ONCE NEEDED FOR CONVULSIVE SEIZURE, MAY REPEAT ONCE IN 10 MINUTES IF ANOTHER SEIZURE 6) POTASSIUM CHLORIDE 10MEQ SA TAB TAKE ONE TABLET BY ACTIVE MOUTH EVERY MORNING WITH BREAKFAST TO SUPPLEMENT POTASSIUM 7) TAMSULOSIN HCL 0.4MG CAP TAKE TWO CAPSULES BY MOUTH ACTIVE ONCE DAILY 30 MINUTES AFTER THE SAME MEALTIME EACH DAY FOR PROSTATE/URINARY SYMPTOMS. 8) VASHE WOUND THERAPY TOP SOLN APPLY APPLICATION ACTIVE TOPICALLY NEEDED PRESSURE INJURIES Current Problems: Active problems - Computerized Problem List is [...] Injury due to chemical exposure (SNOMED CT 969470230) Suicide Screen: [place] Suicide Severity Rating Scale (C-SSRS) screener 1. Over the past month, have you [...] required due to responses to other questions. Sepsis Screening *SUSPECTED INFECTION No How often did you have a drink containing alcohol in the past year? Perform AUDIT-C An alcohol screening test (AUDIT-C) was negative [...] required due to responses to other questions. Have you smoke or use tobacco products in the last 30 days? Yes, currently smokes/uses tobacco products. Type, amount: 1ppd The patient was advised to stop smoking/tobacco use. The patient was provided with basic information about quitting, in addition to discussing recognizing danger situations, and developing coping skills. Drug use: No Any recent injuries ? Yes Left hip fracture - February 2024 Patient Disposition: ER Room 5 Tele ICU contacted /vivian/ NIDA ESCALERA, RN Signed: 06/07/2024 16:24 NIDA ROBB [facility]
--- OUTSIDE RECORDS SUMMARY | 2024-07-07 22:26 | XMS_ITS | Encounter Summary ---
Author Name [facility] [place] Address [address] [place] [address] Care Team Providers Care Electronic Lab Technician Name Role Phone RON KYRA Primary Care [...] Ervin's Name Patient's Relationship to Policy Ervin [facility] (WNR) MEDICARE ADVANTAGE MCR(W NR) * Aug 23, 2023 [id number] [phone] ANNALISA LOYD ITE PATIENT [facility] (WNR) MEDICARE ADVANTAGE [facility] (WNR) Aug 23, 2020 [id number] [phone] ANNALISA LOYD ITE PATIENT [facility] (WNR) MEDICARE ADVANTAGE [facility](W NR) Aug 23, 2012 [id number] ANNALISA LOYD PATIENT Selected Encounter This section includes the information on record at [place] for the Encounter. Date/Time Encounter Type Encounter Description Reason Provider Source Dec 16, 2023 02:26 PM OFFICE O/P EST SF 10 MIN ANESTHESIA PRE/POST-OP CONSULT ICD-10-CM Z01.818 Encounter for other preprocedural examination MELISSA JAVIER Jannette Encounter Template Text not used by [place] Assessments - Encounter Diagnoses This section includes the primary and secondary diagnoses documented for the Encounter. Date/Time Primary/Secondary Diagnosis Diagnosis Name Provider Source May 22, 2024 09:29 AM PRIMARY Encounter for other preprocedural examination MELISSA JAVIER [facility] May 22, 2024 09:29 AM SECONDARY Abdominal aortic aneurysm, without rupture, unspecified MELISSA JAVIER [facility] May 22, 2024 09:29 AM SECONDARY Calculus of kidney MELISSA JAVIER [facility] May 22, 2024 09:29 AM SECONDARY Essential (primary) hypertension MELISSA JAVIER [facility] Plan of Treatment: Future Appointments (+ 6 months) and Future Tests (+/- 45 days) The Plan of Treatment section includes future care activities for the patient [facility] [place] [facility] This section includes future appointments and [...] 2024 01:00 PM AMBULATORY - MEDICINE [facility] Apr 10, 2024 01:30 PM AMBULATORY - [...] PM AMBULATORY - SURGERY [facility]YA [facility]LE [facility] May 04, 2024 10:30 AM AMBULATORY - MEDICINE REINIER GAYLE T [facility] May 04, 2024 11:00 AM AMBULATORY - SURGERY SONYA GAYLE [facility] May 04, 2024 12:30 PM AMBULATORY - NONE [place] [facility] May 04, 2024 01:00 PM AMBULATORY - SURGERY SONYA GAYLE [facility] May 08, 2024 02:30 PM [facility] May 08, 2024 02:31 PM AMBULATORY - NONE [place] [facility] May 16, 2024 10:00 AM AMBULATORY - SURGERY [facility] May 16, 2024 10:01 AM AMBULATORY - SURGERY SONYA GAYLE T [facility] Active, Pending, and Scheduled Orders This section includes a listing of several types of active, pending, and scheduled orders, including clinic medications orders, diagnostic test orders, procedure orders and consult orders; where the start date of the order is 45 days before the date of the Encounter or 45 days after the date of theEncounter. The data comes from all [place] treatment facilities. Test Date/Time Test Type Test Details Facility Name January 18, 2024 12:13 PM Consult Order COMMUNITY CARE-NEUROLOGY Cons Market Consultant's Choice SONYA [facility] Lab Results: +/- 30 days of the [...] Lab: SONYA [facility] [address] [address] Performing Lab: [facility] [address] [address] URINE COLOR [place] NOT DEFINED SPECIFIC GRAVITY 1.013 1.003-1.030 UROBILINOGEN [...] 136/84 20 96 0 69 122.3 18 [facility] Social History: Smoking [...] 2023 11:15 AM UROGRAM RETROGRADE : EVERTGALINA CARISA [id number] -1945 M Ex Date: DEC 16, 2023@11:15 Req Phys: CORBY OSORIO Pat Loc: [facility] GENERAL G2RD (Req'g Img Loc: XRAY (OOS) Service: [place] [address] (Case [id number] COMPLETE) UROGRAM RETROGRADE (RAD Detailed) CPT:69059 Contrast Media : Non-ionic Iodinated Proc Modifiers : OPERATING ROOM EXAM Reason for Study: bilat ureteroscopy laser litho, stent placement Clinical History: calculus of kidney Report Status: Verified Date Reported: DEC 16, 2023 Date Verified: DEC 16, 2023 Cullet Washer E-Sig:/ES/BENJAMÍN PIMENTEL Report: UROGRAM RETROGRADE 12/16/2023 11:15 AM Impression: Fluoroscopy performed during urology service procedure. FINDINGS: Procedure performed with the C-arm fluoroscopy . Fluoroscopy time 55 seconds, dose 9 mGy Fluoroscopic images consistent with history of bilateral ureteroscopy and stent placement. Labels from bilateral Tetra Discovery Contour double-J ureteral stents placed on the scanned worksheet Please see procedure note for further details. HISTORY: bilat ureteroscopy laser litho, stent placement, Primary Diagnostic Code: NO IMMEDIATE ATTENTION REQUIRED Primary Interpreting Staff: BENJAMÍN PIMENTEL, Staff Physician (Cullet Washer) /BENJAMÍN [facility] Pathology Reports: +/- 30 days of [...] the Encounter. The data comes from all [facility] facilities. Date/Time Pathology Report Provider Source Nov 29, 2023 11:27 AM LR MICROBIOLOGY RE PORT: Reporting Lab: [facility] [CLIA# [id number]] [address] [place] [address] Accession [UID]: [id number] [[id number]] Received: Nov 30, 2023@19:53 Collection sample: URINE CLEAN CATCH Collection date: Nov 29, 2023 11:27 Site/Specimen: URINE Provider: CORBY OSORIO Test(s) ordered: CULTURE,URINE CLEAN CATCH..... completed: Dec 02, 2023 13:00 * BACTERIOLOGY FINAL REPORT => Dec 02, 2023 13:01 TECH CODE: [id number] Bacteriology Remark(s): 12/02/23 50,000-99,000 CFU/mL AT LEAST THREE BACTERIAL TYPES PRESENT INDICATING POSSIBLE CONTAMINATION, PLEASE REPEAT COLLECTION. =--=--=--=--=--=--=--=--=--=--= --=--=--=--=--=--=--=--=--=--=- -=--=--=--=--=-- Performing Laboratory: Bacteriology Report Performed By: [facility] [CLIA# [id number]] [address] [place] [address] [facility] Encounter Notes: All associated [...] JAVIER Anesthesiology Signed: 05/22/2024 09:29 MELISSA JAVIER [facility]
--- OUTSIDE RECORDS SUMMARY | 2024-07-07 22:26 | XMS_ITS | Encounter Summary ---
Author Name [facility] [place] Address [address] [place] [address] Care Team Providers Care Subcontracts Manager Name Role Phone KYRA VELASQUEZ Primary [...] [facility] (WNR) MEDICARE [facility](W NR) * Aug 23, 2023 [id number] ANNALISA LOYD ITE PATIENT [facility] MCR (WNR) MEDICARE ADVANTAGE [facility] (WNR) Aug 23, 2020 [id number] [phone] ANNALISA LOYD ITE PATIENT [facility] (WNR) MEDICARE ADVANTAGE [facility](W NR) Aug 23, 2012 [id number] ANNALISA LOYD ITJannette PATIENT Selected Encounter [...] [place] [facility] Jun 07, 2024 01:00 PM AMBULATORY - [place] [facility] Jun 07, 2024 03:55 PM AMBULATORY - MEDICINE [facility] Jannette GAYLE T [facility] Jun 13, 2024 10:00 AM AMBULATORY - SURGERY [facility] Jun 13, 2024 10:01 AM AMBUL[place]ORY [place] [facility] Jun 15, 2024 09:00 AM AMBULATORY - NONE [place] [facility] Jun 20, 2024 11:30 AM AMBULATORY - NONE [place] [facility] Jun 21, 2024 12:30 PM AMBULATORY - SURGERY [place] [facility] Jul 11, 2024 10:00 AM AMBULATORY - SURGERY [facility] Jul 11, 2024 10:01 AM AMBULATORY [place]GERY [place] [facility] Jul 24, 2024 11:00 AM AMBULATORY - SURGERY [place] [facility] Jul 27, 2024 10:00 AM AMBULATORY - NONE [place] [facility] Aug 29, 2024 10:30 AM AMBULATORY - NONE [place] [facility] Aug 29, 2024 11:15 AM AMBULATORY - SURGERY [place] [facility] Oct 23, 2024 01:00 PM AMBULATORY - MEDICINE [facility] Oct 23, 2024 01:01 PM AMBULATORY - NONE [place] [facility] Active, Pending, and Scheduled Orders [...] KIT 24H URINE SP [facility] Jun 28, 2024 12:58 PM Consult Order PALLIATIVE CARE OUTPATIENT Cons Refinery Operator Assistant's [facility] Jul 06, 2024 07:22 AM Consult Order CSP PCAFC HOME-CARE ASSESSMENT OUTPT Cons Refinery Operator Assistant's [facility] Jul 07, 2024 02:02 PM Consult Order 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 Ordering Provider: KAREEM VALVERDE Report Released Date/Time: Jun 07, 2024 04:57 PM Reporting Lab: [facility] [address] [facility] [address] Performing Lab: [facility] [address] [facility] [address] URINE COLOR Light-Yellow NOT DEFINED SPECIFIC GRAVITY [...] MICROSCOPIC-iQ Completed May 04, 2024 10:32 AM [facility] UREA NITROGEN Specimen Type: PLASMA Comment: , Tests performed on Mobile Game [employer] SN:[id number] (405) Ordering Provider: AUBREY FAM Report Released Date/Time: Nov 15, 2023 11:30 AM Reporting [facility] [address] [facility] [address] Performing Lab: [facility] [address] [facility] [address] UREA NITROGEN 10 mg/dL 03-16May 04, 2024 10:32 AM [facility] CREATININE WITH eGFR PANEL Specimen Type: PLASMA Comment: , Tests performed on [place] [employer] SN:[id number] (405) Ordering Provider: AUBREY FAM Report Released Date/Time: Nov 15, 2023 11:30 AM Reporting Lab: [facility] [address] [facility] [address] Performing Lab: [facility] [address] [facility] [address] CREATININE 0.91 mg/dL 0.50-1.50 eGFR(CKD-EPI 2020) 86 [...] Feb 21, 2024 10:15 AM 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 NO [facility] Feb 21, 2024 10:15 AM VA-TOBACCO USE MED NO [facility] Feb 21, 2024 10:15 AM VA-TOBACCO USE WI 30 MIN OF WAKEUP [facility] Feb 21, 2024 10:15 AM VA-TOBACCO USER EVERY DAY [facility] Jul 17, 2021 02:27 PM CURRENT SMOKER REINIER GAYLE [facility] Jul 01, 2021 08:55 PM VA-VAAES TOBACCO U SE CURRENT NRT DECLINE SONYA [facility] Jul 01, 2021 02:41 PM CURRENT SMOKER REINIER GAYLE [facility] Dec 08, 2020 08:45 PM VA-TOBACCO USER EVERY DAY SONYA [facility] Dec 08, 2020 08:45 PM VA-VAAES TOBACCO U SE CURRENT NRT DECLINE SONYA [facility] Dec 08, 2020 06:58 [...] CTA ABDOMEN AND PE LVIS: GALINA LOYD [id number] -1945 M Exm Date: MAY 04, 2024@12:30 Req Phys: VIMAL FAM L Pat Loc: [facility] VASCULAR 15 M3RH (Req'g Lo Img Loc: CT SCAN (OOS) [facility] [place] [address] (Case [id number] COMPLETE) CTA ABDOMEN AND PELVIS (CT Detailed) CPT:89307 Contrast Media : Non-ionic Iodinated Reason for [...] 2024 Date Verified: MAY 05, 2024 Senior Inspector E-Sig:/ES/NÉSTOR PASCUAL Report: CTA ABDOMEN AND [...] Primary Interpreting Staff: NÉSTOR PASCUAL, RADIOLOGIST (Senior Inspector) /NÉSTOR CONNER [facility] Pathology Reports: +/- 30 days [...] Lab: SONYA GAYLE [facility] [CLIA# [id number]] [address] [place] [address] Accession [UID]: [id number] [[id number]] Received: Jun 07, 2024@18:38 Collection sample: URINE CLEAN CATCH Collection date: Jun 07, 2024 17:30 Site/Specimen: URINE Provider: TODD VALVERDE Test(s) ordered: CULTURE,URINE CLEAN CATCH..... completed: Jun 10, 2024 12:19 * BACTERIOLOGY FINAL REPORT => Jun 12, 2024 11:34 TECH CODE: [id number] CULTURE RESULTS: 1. ENTEROCOCCUS FAECALIS - Quantity: [...] -=--=--=--=--=-- Performing Laboratory: Bacteriology Report Performed By: [facility] [CLIA# [id number]] [address] [place] [address] [facility] Encounter Notes: All associated encounter notes This section contains the clinical notes associated to the Encounter. Date/Time Encounter Note(s) Provider Source May 23, 2024 08:30 AM CAREGIVER CERTIFIC ATE: LOCAL TITLE: [facility] ADMINISTRATIVE NOTE STANDARD TITLE: CAREGIVER CERTIFICATE DATE OF NOTE: MAY 23, 2024@08:30 ENTRY DATE: MAY 23, 2024@08:30:26 AUTHOR: ADENIKE REYNOLDS EXP COSIGNER: URGENCY: STATUS: COMPLETED [facility] contact information, [place] FORM 10-10CG, and [facility] fact sheets were mailed to the per consult. UCID: [id number] /es/ ADENIKE REYNOLDS AWNING SPREADER Signed: 05/23/2024 08:30 ADENIKE REYNOLDS [facility]
--- OUTSIDE RECORDS SUMMARY | 2024-07-07 22:26 | XMS_ITS ---
Author Name [facility] [place] Organization [place] Address [address] [place] [address] Care Team Providers Care Relocation Coordinator Name Role Phone KYRA VELASQUEZ Primary Care [...] Ervin's Name Patient's Relationship to Policy Ervin [facility] (WNR) MEDICARE ADVANTAGE MCR(W NR) * Aug 23, 2023 [id number] ANNALISA LOYD ITE PATIENT [facility] (WNR) MEDICARE ADVANTAGE [facility] (WNR) Aug 23, 2020 [id number] [phone] ANNALISA LOYD ITE PATIENT [facility] (WNR) MEDICARE ADVANTAGE MCR(W NR) Aug 23, 2012 [id number] ANNALISA LOYD ITE PATIENT Selected Encounter This section includes the information on record at [place] for the Encounter. Date/Time Encounter Type Encounter Description Reason Pro vider Source May 28, 2024 04:35 PM Outpatient Encounter TELEPHONE TRIAGE IHE Encounter Template Text not used by [place] Plan of Treatment: Future Appointments (+ 6 months) and Future Tests (+/- 45 days) The Plan of Treatment section includes future care activities for the patient from all [place] [facility]. This section includes future appointments and future orders which are active, pending or scheduled. Future Appointments This section includes appointments that were scheduled to occur 6 months from the date of the Encounter, up to a maximum of 20 appointments. The data comes from all [facility] facilities. Appointment Date/Time Appointment Type Appointme nt Facility Name Jun 07, 2024 01:00 PM [place] [facility] Jun 07, 2024 03:55 PM AMBULATORY - MEDICINE [facility] Jannette [facility] Jun 13, 2024 10:00 AM AMBULATORY - SURGERY [facility] Jun 13, 2024 10:01 AM [place] [facility] Jun 15, 2024 09:00 AM [place]ORY - NONE [place] [facility] Jun 20, 2024 11:30 AM [place]ORY - NONE [place] [facility] Jun 21, 2024 12:30 PM [place] [facility] Jul 11, 2024 10:00 AM AMBULATORY - SURGERY [facility] Jul 11, 2024 10:01 AM [place] [facility] Jul 24, 2024 11:00 AM [facility] [facility] Jul 27, 2024 10:00 AM AM[place]ORY - NONE [place] [facility] Aug 29, 2024 10:30 AM AM[place]ATORY - NONE [place] [facility] Aug 29, 2024 11:15 AM [place] [facility] Oct 23, 2024 01:00 PM AMBULATORY - MEDICINE [facility] Oct 23, 2024 01:01 PM AMBULATORY - NONE [place] [facility] Active, Pending, and Scheduled [...] KIT 24H URINE SP [facility] Jun 28, 2024 12:58 PM Consult Order PALLIATIVE CARE OUTPATIENT Cons [facility] Jul 06, 2024 07:22 AM Consult Order CSP PCAFC HOME-CARE ASSESSMENT OUTPT [facility] Jul 07, 2024 02:02 PM Consult Order 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 Ordering Provider: KAREEM VALVERDE Report Released Date/Time: Jun 07, 2024 04:57 PM Reporting Lab: [facility] [address] [facility] [address] Performing Lab: [facility] [address] [facility] [address] URINE COLOR Light-Yellow NOT DEFINED SPECIFIC GRAVITY [...] MICROSCOPIC-iQ Completed May 04, 2024 10:32 AM [facility] UREA NITROGEN Specimen Type: PLASMA Comment: , Tests performed on [employer]Top[employer] [id number]) Ordering Provider: AUBREY FAM Report Released Date/Time: Nov 15, 2023 11:30 AM Reporting Lab: [facility] [address] [facility] [address] Performing Lab: [facility] [address] [facility] [address] UREA NITROGEN 10 mg/dL 03-16May 04, 2024 10:32 AM [facility] CREATININE WITH eGFR PANEL Specimen Type: PLASMA Comment: , Tests performed on [employer] SN:[id number] (900) Ordering Provider: AUBREY FAM Report Released Date/Time: Nov 15, 2023 11:30 AM Reporting Lab: [facility] [address] [facility] [address] Performing Lab: [facility] [address] [facility] [address] CREATININE 0.91 mg/dL 0.50-1.50 eGFR(CKD-EPI 2020) 86 [...] Feb 21, 2024 10:15 AM VA-TOBACCO USE GARBAGE [employer] NO [facility] Feb 21, 2024 [...] PM CURRENT SMOKER REINIER GAYLE [facility] Dec 08, 2020 08:45 PM VA-TOBACCO [...] CTA ABDOMEN AND PE LVIS: GALINA LOYD CARISA [id number] -1945 M Exm Date: MAY 04, 2024@12:30 Req Phys: VIMAL FAM Pat Loc: [facility] VASCULAR 15 M3RH (Req'g Lo Img Loc: CT SCAN (OOS) Service: [place] [address] (Case [id number] COMPLETE) CTA ABDOMEN AND PELVIS (CT Detailed) CPT:93697 Contrast Media : Non-ionic Iodinated Reason for [...] 05, 2024 Date Verified: MAY 05, 2024 Systems Librarian E-Sig:/ES/NÉSTOR PASCUAL Report: CTA ABDOMEN AND PELVIS [...] REQUIRED Primary Interpreting Staff: NÉSTOR PASCUAL, RADIOLOGIST (Systems Librarian) /NÉSTOR CONNER [facility] Pathology Reports: +/- 30 days of [...] PM LR MICROBIOLOGY RE [place]: Reporting Lab: [facility] [CLIA# [id number]] [address] [place] [address] Accession [UID]: [id number] [[id number]] Received: Jun 07, 2024@18:38 Collection sample: URINE CLEAN CATCH Collection date: Jun 07, 2024 17:30 Site/Specimen: URINE Provider: TODD VALVERDE Test(s) ordered: CULTURE,URINE CLEAN CATCH..... completed: Jun 10, 2024 12:19 * BACTERIOLOGY FINAL REPORT => Jun 12, 2024 11:34 TECH CODE: [id number] CULTURE RESULTS: 1. ENTEROCOCCUS FAECALIS - Quantity: [...] -=--=--=--=--=-- Performing Laboratory: Bacteriology Report Performed By: [facility] [CLIA# [id number]] [address] [place] [address] [facility] Encounter Notes: All associated encounter notes This section contains the clinical notes associated to the Encounter. Date/Time Encounter Note(s) Provider Source May 28, 2024 04:35 PM RN PROGRESS NOTE: LOCAL TITLE: CCC: CLINICAL TRIAGE STANDARD TITLE: RN PROGRESS NOTE DATE OF NOTE: MAY 28, 2024@16:35:16 ENTRY DATE: MAY 28, 2024@16:35:17 AUTHOR: GUILLAUME COOPER EXP COSIGNER: URGENCY: STATUS: COMPLETED CCC: CLINICAL TRIAGE Has ADDENDA Patient Demographics Patient Name: GALINA LOYD JR Patient Primary [address]: [address] [place] [id number] Patient Primary Phone: [phone] Patient : 1945 Patient Age: 78 Caller/Recipient Relation to Patient: Self Emergency Contact: MAIRE LOYD Triage Summary Conducted triage/discussed symptoms Utilized the Triage Tool: Yes Chief Complaint: Nausea Without Vomiting System WHEN: Self-care Nurse's Recommendation / WHEN: Selfcare System WHERE: Home Nurse's Recommendation / WHERE: Home Care Patient Disposition Patient/Caregiver agrees to plan of care: Yes Nursing Plan and Disposition Other course(s) of action Generated msg to PACT/Provider Provided guidance for worsening symptoms: *Caller/Patient* advised to call facilities [place] Clinical Contact Center or seek immediate medical attention for new or worsening symptoms Nurse Summary Nurse Summary: Call received from 's and daughter . nidia is currently being treated for MRSA infection in the urine and is taking Bactrim. Per caller nidia has experienced nausea total for 3 times since he started the medication. The nausea lasts for a few seconds and it goes away. It is not continuous or persistent. he has not had any vomiting and is able to eat and drink . Advised home care measures. Educated about warning signs and symptoms for which he need to seek medical care immediately. vet and family verbalized understanding. Clinical Contact Center Codes Clinic/Location: V1 [facility] PHONE CCC RN Decision Support System Output: Triage Complete Triage Date: 05/28/2024, 04:22 PM Triage Note: Decision Support Tool Used: TXCC Phone Triage Sun, 28 May 2024 20:14:50 +0000 [facility] Demographics 78 y/o Male Results CC: Nausea Without Vomiting Software suggested: Self-care Software suggested follow-up location: Home, consider [facility] Values and Measures Duration of CC: 3 Days Positive Responses HPI: nausea, onset after starting new medication MEDS: taking prescription medications daily PMH: stroke or TIA VS: temperature not taken Negative Responses Denies: HPI: abdominal pain Denies: HPI: brown urine Denies: HPI: chest pain Denies: HPI: constipation Denies: HPI: dermal icterus Denies: HPI: diaphoresis, with nausea, duration longer than 10 minutes Denies: HPI: diarrhea Denies: HPI: dyspnea, with nausea Denies: HPI: dysuria Denies: HPI: heartburn, episodic Denies: HPI: hematuria Denies: HPI: increased urinary frequency Denies: HPI: lightheadedness, duration longer than 10 minutes, with the nausea Denies: HPI: lightheadedness, orthostatic Denies: HPI: melena Denies: HPI: myalgias Denies: HPI: nasal congestion, duration longer than 2 days Denies: HPI: nasal congestion, new or worsening Denies: HPI: nausea, for the past 12 hours Denies: HPI: no oral fluids, for longer than 6 hours Denies: HPI: oliguria Denies: HPI: rhinorrhea, yellow or brown Denies: HPI: scleral icterus Denies: HPI: sore throat Denies: HPI: urinary urgency, constant Denies: HPI: vertigo Denies: HPI: vomiting Denies: HPI: weakness, fatigue, more than usual Denies: HPI: weakness, unable to stand or get out of bed Denies: MEDS: taking a medication that may increase risk for drug toxicity Denies: PMH: diabetes Denies: PMH: heart disease Denies: PMH: UTI Education Verbal Education Provided for: Nausea Home Care IMPORTANT: This note was created by [facility] Clinical Contact Center staff. Please do not alert the staff member by adding them as a signer for future communications. Alerts are not monitored by this user. /vivian/ GUILLAUME LOPEZ 2 [facility] RN Signed: 05/28/2024 16:35 Receipt Acknowledged By: 05/31/2024 12:42 /es/ JENIFER SHANE LPN 05/31/2024 12:38 /vivian/ OJ GIL RN 05/31/2024 ADDENDUM STATUS: COMPLETED contact with of [facility]- feels he is doing better- still has bouts of nausea- suggested dry crackers, may help a bit. Will try . Will contact clinic should ther be any further needs/questions/concerns /vivian/ OJ IGL RN Signed: 05/31/2024 12:38 GUILLAUME [facility]
--- OUTSIDE RECORDS SUMMARY | 2024-07-07 22:26 | XMS_ITS ---
Author Name Department of Vetera ns Affairs ([place]) Organization Department of Vetera [place]) Address [address] [place] [address] Care Team Providers Care Terrazzo Worker Apprentice Name Role Phone KYRA VELASQUEZ Primary Care [...] Policy Ervin [facility] (WNR) MEDICARE [facility](W NR) * Aug 23, 2023 [id number] ANNALISA LOYD ITE PATIENT [facility] MCR (WNR) MEDICARE ADVANTAGE [facility] (WNR) Aug 23, 2020 [id number] [phone] ANNALISA LOYD ITE PATIENT [facility] (WNR) MEDICARE ADVANTAGE [facility](W NR) Aug 23, 2012 [id number] ANNALISA LOYD ITJannette PATIENT Selected Encounter This section includes the information on record at [place] for the Encounter. Date/Time Encounter Type Encounter Description Reason Pro vider Source May 31, 2024 08:51 AM Outpatient Encounter ADMIN PAT ACTIVTIES (MASNONCT) [...] [place] [facility] Jun 07, 2024 03:55 PM AMBULATORY - MEDICINE [facility] Jannette [place] T [facility] Jun 13, 2024 10:00 AM AMBULATORY - SURGERY [facility] Jun 13, 2024 10:01 AM [place] [facility] Jun 15, 2024 09:00 AM AMBULATORY - NONE [place] [facility] Jun 20, 2024 11:30 AM AMBULATORY - NONE [place] [facility] Jun 21, 2024 12:30 PM AM[place]ORY - [place] [facility] Jul 11, 2024 10:00 AM AMBULATORY - SURGERY [facility] Jul 11, 2024 10:01 AM [place] [facility] Jul 24, 2024 11:00 AM [place] - [place] [facility] Jul 27, 2024 10:00 AM AMBULATORY - NONE [place] [facility] Aug 29, 2024 10:30 AM AMBULATORY - NONE [place] [facility] Aug 29, 2024 11:15 AM AMB[place]ORY - [place]GERY [place] [facility] Oct 23, 2024 01:00 PM AMBULATORY - [...] STONE KIT 24H URINE SP [facility] Jun 28, 2024 12:58 PM Consult Order PALLIATIVE CARE OUTPATIENT Cons [employer] Jul 06, 2024 07:22 AM Consult Order CSP PCAFC HOME-CARE ASSESSMENT OUTPT Cons [employer] [facility] Jul 07, 2024 02:02 PM Consult Order OCCUPATION AL THERAPY OUTPATIENT Cons [employer] Lab Results: +/- 30 days [...] Range Comment Jun 07, 2024 05:30 PM [facility] URINALYSIS W/REFLEX TO CULTURE Specimen Type: URINE No comment entered. Ordering Provider: KAREEM CERNA Report Released Date/Time: Jun 07, 2024 04:57 PM Reporting Lab: [facility] [address] [facility] [address] Performing Lab: [facility] [address] [facility] [address] URINE COLOR Light-Yellow NOT DEFINED SPECIFIC GRAVITY [...] MICROSCOPIC-iQ Completed May 04, 2024 10:32 AM [facility] UREA NITROGEN Specimen Type: PLASMA Comment: , Tests performed on [employer] SN:[id number] (405) Ordering Provider: AUBREY FAM Report Released Date/Time: Nov 15, 2023 11:30 AM Reporting Lab: [facility] [address] [facility] [address] Performing Lab: [facility] [address] [facility] [address] UREA NITROGEN 10 mg/dL 03-16May 04, 2024 10:32 AM [facility] CREATININE WITH eGFR PANEL Specimen Type: PLASMA Comment: , Tests performed on [employer] SN:[id number] (405) Ordering Provider: AUBREY FAM Report Released Date/Time: Nov 15, 2023 11:30 AM Reporting Lab: [facility] [address] [facility] [address] Performing Lab: [facility] [address] [facility] [address] CREATININE 0.91 mg/dL 0.50-1.50 eGFR(CKD-EPI 2020) 86 [...] WI 30 MIN OF WAKEUP [facility] Tobacco Use History This section [...] Feb 21, 2024 10:15 AM VA-TOBACCO USE [employer] PROFESSOR NO [facility] Feb 21, 2024 10:15 AM VA-TOBACCO USE MED NO [facility] Feb 21, 2024 10:15 AM VA-TOBACCO USE [place] 30 MIN OF WAKEUP [facility] Feb 21, 2024 10:15 AM VA-TOBACCO USER EVERY DAY [facility] Jul 17, 2021 02:27 PM CURRENT SMOKER [facility] Jul 01, 2021 08:55 PM VA-VAAES TOBACCO U SE CURRENT NRT DECLINE [facility] Jul 01, 2021 02:41 PM CURRENT SMOKER REINIER [facility] Dec 08, 2020 08:45 PM VA-TOBACCO [...] CTA ABDOMEN AND PE LVIS: GALINA LOYD [id number] -1945 M Exm Date: MAY 04, 2024@12:30 Req Phys: VIMAL FAM L Pat Loc: [facility] VASCULAR 15 M3RH (Req'g Lo Img Loc: CT SCAN (OOS) Service: Unknown [place] [address] (Case [id number] COMPLETE) CTA ABDOMEN AND PELVIS (CT Detailed) CPT:73788 Contrast Media : Non-ionic Iodinated Reason for [...] Date Verified: MAY 05, 2024 Heavy Equipment Rental Manager E-Sig:/ES/NÉSTOR PASCUAL Report: CTA ABDOMEN AND [...] Interpreting Staff: NÉSTOR PASCUAL, RADIOLOGIST (Heavy Equipment Rental Manager) /NÉSTOR CONNER [facility] Pathology Reports: +/- 30 days of the [...] PM LR MICROBIOLOGY RE [place]: Reporting Lab: [facility] [CLIA# [id number]] [address] [place] [address] Accession [UID]: [id number] [[id number]] Received: Jun 07, 2024@18:38 Collection sample: URINE CLEAN CATCH Collection date: Jun 07, 2024 17:30 Site/Specimen: URINE Provider: TODD CERNA Test(s) ordered: CULTURE,URINE CLEAN CATCH..... completed: Jun 10, 2024 12:19 * BACTERIOLOGY FINAL REPORT => Jun 12, 2024 11:34 TECH CODE: [id number] CULTURE RESULTS: 1. ENTEROCOCCUS FAECALIS - Quantity: [...] -=--=--=--=--=-- Performing Laboratory: Bacteriology Report Performed By: [facility] [CLIA# [id number]] [address] [place] [address] [facility] Encounter Notes: All associated encounter notes This section contains the clinical notes associated to the Encounter. Date/Time Encounter Note(s) Provider Source May 31, 2024 09:10 AM ADDENDUM: LOCAL TITLE: Addendum STANDARD TITLE: ADDENDUM DATE OF NOTE: MAY 31, 2024@09:10:27 ENTRY DATE: MAY 31, 2024@09:10:28 AUTHOR: GINGER SALCEDO EXP COSIGNER: URGENCY: STATUS: COMPLETED I called pt's daughter, Bertha, who sts pt was taken to [facility] ED on 05/24/24 was treated for UR and UTI, the catheter fell out and he returned to [facility] ED for reinsertion of catheter. The urologist (Dr Velazquez) placed the catheter there and adv'd daughter that pt needs appt for TOV/CIC within 2 weeks however the clinic at [facility] is booked through August. Pt's daughter is seeking an appt here for TOV/CIC. /vivian/ GINGER SALCEDO rn Signed: 05/31/2024 09:13 Receipt Acknowledged By: 05/31/2024 13:40 /es/ JESSICA Gifford MD * AWAITING SIGNATURE * CORBY OSORIO --- Original Document --- 05/31/24 Has Admin Note: Pt's daughter Bertha brooks, stated pt was seen in ED at [facility] on 05/24. on 05/26 his cathader came out. He was referred to Urology at [facility] needing to be seen within 2 weeks, however, they are booking into August. Pt would like to be seen here. /vivian/ RIP MENDOZA Signed: 05/31/2024 08:55 Receipt Acknowledged By: 05/31/2024 09:10 /vivian/ GINGER SALCEDO rn 05/31/2024 ADDENDUM STATUS: UNSIGNED You may not VIEW this UNSIGNED Addendum. GINGER SALCEDO [facility] May 31, 2024 08:51 AM ADMINISTRATIVE NOT E: LOCAL TITLE: Has Admin Note STANDARD TITLE: ADMINISTRATIVE NOTE DATE OF NOTE: MAY 31, 2024@08:51 ENTRY DATE: MAY 31, 2024@08:51:42 AUTHOR: RIP BENDER EXP COSIGNER: URGENCY: STATUS: COMPLETED Has Admin Note Has ADDENDA Pt's daughter Bertha brooks, stated pt was seen in ED at [facility] on 05/24. on 05/26 his cathader came out. He was referred to Urology at [facility] needing to be seen within 2 weeks, however, they are booking into August. Pt would like to be seen here. /vivian/ RIP MENDOZA Signed: 05/31/2024 08:55 Receipt Acknowledged By: 05/31/2024 09:10 /vivian/ GINGER SALCEDO rn 05/31/2024 ADDENDUM STATUS: COMPLETED I called pt's daughter, Bertha, who sts pt was taken to [facility] ED on 05/24/24 was treated for UR and UTI, the catheter fell out and he returned to [facility] ED for reinsertion of catheter. The urologist (Dr Velazquez) placed the catheter there and adv'd daughter that pt needs appt for TOV/CIC within 2 weeks however the clinic at [facility] is booked through August. Pt's daughter is seeking an appt here for TOV/CIC. /vivian/ GINGER SALCEDO rn Signed: 05/31/2024 09:13 Receipt Acknowledged By: 05/31/2024 13:40 /vivian/ JESSICA Gifford MD * AWAITING SIGNATURE * CORBY OSORIO 05/31/2024 ADDENDUM STATUS: COMPLETED consult for nursing placed /vivian/ JESSICA Gifford MD Signed: 05/31/2024 13:40 RIP BENDER [facility]
--- OUTSIDE RECORDS SUMMARY | 2024-07-07 22:26 | XMS_ITS | Encounter Summary ---
Author Name [place] Address [address] [place] [address] Care Team Providers Care Private Duty Lpn Name Role Phone KYRA VELASQUEZ Primary Care [...] Ervin's Name Patient's Relationship to Policy Ervin [facility] (WNR) MEDICARE ADVANTAGE MCR(W NR) * Aug 23, 2023 [id number] [phone] ANNALISA LOYD ITE PATIENT [facility] (WNR) MEDICARE ADVANTAGE [facility] (WNR) Aug 23, 2020 [id number] [phone] ANNALISA LOYD ITE PATIENT [facility] (WNR) MEDICARE [facility](W NR) Aug 23, 2012 [id number] [phone] ANNALISA LOYD ITE PATIENT Selected Encounter This section includes the information on record at [place] for the Encounter. Date/Time Encounter Type Encounter Description Reason Pro vider Source May 26, 2024 02:49 PM Outpatient Encounter COMMUNITY CARE CONSULT IHE Encounter Template Text not used by VA Plan of Treatment: Future Appointments (+ 6 months) and Future Tests (+/- 45 days) The Plan of Treatment section includes future care activities for the patient from all [place] [facility]. This section includes future appointments and future orders which are active, pending or scheduled. Future Appointments This section includes appointments that were scheduled to occur 6 months from the date of the Encounter, up to a maximum of 20 appointments. The data comes from all [facility]. Appointment Date/Time Appointment Type Appointme nt Facility Name Jun 07, 2024 01:00 PM [place] [facility] Jun 07, 2024 03:55 PM AMBULATORY - MEDICINE [facility] Jannette GAYLE [facility] Jun 13, 2024 10:00 AM AMBULATORY - SURGERY [facility] Jun 13, 2024 10:01 AM [place] [facility] Jun 15, 2024 09:00 AM AM[place]ULATORY - NONE [place] [facility] Jun 20, 2024 11:30 AM AMBULATORY - NONE [place] [facility] Jun 21, 2024 12:30 PM [place] [facility] Jul 11, 2024 10:00 AM AMBULATORY - SURGERY [facility] Jul 11, 2024 10:01 AM [place]BUL[place] [facility] Jul 24, 2024 11:00 AM [place] [facility] Jul 27, 2024 10:00 AM AMBULATORY - NONE [place] [facility] Aug 29, 2024 10:30 AM AMBULATORY - NONE [place] [facility] Aug 29, 2024 11:15 AM [place] [facility] Oct 23, 2024 01:00 PM AMBULATORY - MEDICINE [facility] Oct 23, 2024 01:01 PM AMBULATORY - NONE [place] [facility] Active, Pending, and Scheduled Orders [...] PM Consult Order PALLIATIVE CARE OUTPATIENT Cons Yarn Dry Room Worker's [facility] Jul 06, 2024 07:22 AM Consult Order CSP PCAFC HOME-CARE ASSESSMENT OUTPT Cons Yarn Dry Room Worker's [facility] Jul 07, 2024 02:02 PM Consult Order OCCUPATION AL THERAPY OUTPATIENT Cons Yarn Dry Room Worker's [facility] Lab Results: +/- 30 days [...] CENTER [address] [facility] [address] Performing Lab: [facility] [address] [facility] [address] URINE COLOR Light-Yellow NOT DEFINED SPECIFIC GRAVITY [...] MICROSCOPIC-iQ Completed May 04, 2024 10:32 AM [facility] UREA NITROGEN Specimen Type: PLASMA Comment: , Tests performed on [employer] SN:[id number] ([id number]) Ordering Provider: AUBREY FAM Report Released Date/Time: Nov 15, 2023 11:30 AM Reporting Lab: [facility] [address] [facility] [address] Performing Lab: [facility] [address] [facility] [address] UREA NITROGEN 10 mg/dL 03-16May 04, 2024 10:32 AM [facility] CREATININE WITH eGFR PANEL Specimen Type: PLASMA Comment: , Tests performed on [employer] SN:[id number] ([id number]) Ordering Provider: AUBREY FAM Report Released Date/Time: Nov 15, 2023 11:30 AM Reporting Lab: [facility] [address] [facility] [address] Performing Lab: [facility] [address] [facility] [address] CREATININE 0.91 mg/dL 0.50-1.50 eGFR(CKD-EPI 2020) 86 [...] Feb 21, 2024 10:15 AM VA-TOBACCO USE CUSTOM GRINDER NO [facility] Feb 21, 2024 10:15 AM VA-TOBACCO USE MED NO [facility] Feb 21, 2024 10:15 AM VA-TOBACCO USE WI 30 MIN OF WAKEUP [facility] Feb 21, 2024 10:15 AM VA-TOBACCO USER EVERY DAY [facility] Jul 17, 2021 02:27 PM CURRENT SMOKER WHIT Jannette [facility] Jul 01, 2021 08:55 [...] ABDOMEN AND PE LVIS: GALINA LOYD CARISA [id number] -[id number] M Exm Date: MAY 04, 2024@12:30 Req Phys: VIMAL FAM Pat Loc: [facility] VASCULAR 15 M3RH (Req'g Lo Img Loc: CT SCAN (OOS) Service: [place] [address] (Case [id number] COMPLETE) CTA ABDOMEN AND PELVIS (CT Detailed) CPT:08866 Contrast Media : Non-ionic Iodinated Reason for [...] 05, 2024 Date Verified: MAY 05, 2024 Machine Stone Polisher Apprentice E-Sig:/ES/NÉSTOR PASCUAL Report: CTA ABDOMEN AND PELVIS [...] REQUIRED Primary Interpreting Staff: NÉSTOR PASCUAL, RADIOLOGIST (Machine Stone Polisher Apprentice) /NÉSTOR CONNER [facility] Pathology Reports: [...] comes from all [place] treatment facilities. Date/Time Pathology Report Provider Source Jun 07, 2024 05:30 PM LR MICROBIOLOGY RE PORT: Reporting Lab: [facility] [CLIA# [id number]] [address] [place] [address] Accession [UID]: [id number] [[id number]] Received: Jun 07, 2024@18:38 Collection sample: URINE CLEAN CATCH Collection date: Jun 07, 2024 17:30 Site/Specimen: URINE Provider: TODD CERNA Test(s) ordered: CULTURE,URINE CLEAN CATCH..... completed: Jun 10, 2024 12:19 * BACTERIOLOGY FINAL REPORT => Jun 12, 2024 11:34 TECH CODE: [id number] CULTURE RESULTS: 1. ENTEROCOCCUS FAECALIS - Quantity: >100,000 CFU/mL Comment: VANCOMYCIN RESISTANT ENTEROCOCCUS SPECIES IDENTIFIED. MDRO NOTIFIED VIA TEAMS GROUP 10/21/24. 2. YEAST - Quantity: 50,000-99,000 CFU/mL Comment: No further workup ANTIBIOTIC SUSCEPTIBILITY TEST RESULTS: 1. ENTEROCOCCUS FAECALIS : Ampicillin.................... S Ciprofloxacin................. R Gentamicin Synergy Screen..... S LEVOFLOXACIN.................. R Linezolid..................... S Nitrofurantoin................ S Penicillin-G.................. S Vancomycin.................... R Bacteriology Remark(s): Notified D Kirsten Cerna and Da Cuenca on 06/10/24 =--=--=--=--=--=--=--=--=--=--= --=--=--=--=--=--=--=--=--=--=- -=--=--=--=--=-- Performing Laboratory: Bacteriology Report Performed By: [facility] [CLIA# [id number]] [address] [place] [address] [facility] Encounter Notes: All associated encounter notes This section contains the clinical notes associated to the Encounter. Date/Time Encounter Note(s) Provider Source May 26, 2024 02:49 PM NONVA NOTE: LOCAL TITLE: COMMUNITY CARE-RAFAEL SELF PRESENTING CARE COORD PLAN STANDARD TITLE: NONVA NOTE DATE OF NOTE: MAY 26, 2024@14:49 ENTRY DATE: MAY 29, 2024@14:49:30 AUTHOR: PILAR LOCKHART EXP COSIGNER: URGENCY: STATUS: COMPLETED COMMUNITY CARE-RAFAEL SELF PRESENTING CARE COORD PLAN NOTE Has ADDENDA Emergency Notification Intake Date Presenting to the Facility: May Method of Contact: Notified from ECR worklist Notification ID: [id number] [facility] Referral #: [facility] Name: Hospital: [facility] Address: City: [facility] State: [place] Zip Code: [address] Phone : Community Facility Point of Contact: Name: Phone: Chief complaint: catheter issues Primary Diagnosis: Disposition Unknown at time of intake note entry Alerting team of return to ED for catheter issues. Records requested. /es/ PILAR TOBAR, RN EMERGENCY INTERVENTIONAL PHYSIATRIST Signed: 05/29/2024 14:53 Receipt Acknowledged By: 05/30/2024 11:38 /es/ JENIFER SHANE LPN 05/31/2024 12:35 /vivian/ OJ GIL RN 05/30/2024 ADDENDUM STATUS: COMPLETED Record requested /vivian/ OJ GIL RN Signed: 05/30/2024 10:34 05/31/2024 ADDENDUM STATUS: COMPLETED contact with of vet- feels he is doing better- still has bouts of nausea- suggested dry crackers, may help a bit. Will try . Will contact clinic should ther be any further needs/questions/concerns /vivian/ OJ GIL RN Signed: 05/31/2024 12:36 06/09/2024 ADDENDUM STATUS: COMPLETED Notification ID # [id number] EOC approved under 1703 by the [place](Centralized Authorization of Emergency Care) [employer] Referral # [id number] /vivian/ PILAR TOBAR, RN EMERGENCY INTERVENTIONAL PHYSIATRIST Signed: 06/09/2024 08:19 PILAR LOCKHART [facility]
--- OUTSIDE RECORDS SUMMARY | 2024-07-07 22:27 | XMS_ITS ---
Author Name [place] Address [address] [place] [address] Care Team Providers Care Dry Goods Inspector Name Role Phone KYRA VELASQUEZ Primary Care [...] Ervin's Name Patient's Relationship to Policy Ervin [facility] (WNR) MEDICARE [facility](W NR) * Aug 23, 2023 [id number] ANNALISA LOYD ITE PATIENT [facility] MCR (WNR) MEDICARE ADVANTAGE [facility] (WNR) Aug 23, 2020 [id number] [phone] ANNALISA LOYD ITE PATIENT [facility] (WNR) MEDICARE ADVANTAGE [facility](W NR) Aug 23, 2012 [id number] ANNALISA LOYD ITJannette PATIENT Selected Encounter This section includes the information on record at [place] for the Encounter. Date/Time Encounter Type Encounter Description Reason Pro vider Source Jun 08, 2024 05:59 AM Outpatient Encounter ADMIN PAT ACTIVTIES (MASNONCT) [...] 13, 2024 10:00 AM AMBULATORY - SURGERY [facility] Jun 13, 2024 10:01 AM [place] [facility] Jun 15, 2024 09:00 AM AM[place]ULATORY - NONE [place] [facility] Jun 20, 2024 11:30 AM AMBULATORY - NONE [place] [facility] Jun 21, 2024 12:30 PM [place] [facility] Jul 11, 2024 10:00 AM AMBULATORY - SURGERY [facility] Jul 11, 2024 10:01 AM [place] [facility] Jul 24, 2024 11:00 AM [place] [facility] Jul 27, 2024 10:00 AM AMBULATORY - NONE [place] [facility] Aug 29, 2024 10:30 AM AMBULATORY - NONE [place] [facility] Aug 29, 2024 11:15 AM [place]ORY - [place] [facility] Oct 23, 2024 01:00 PM AMBULATORY - MEDICINE [facility] Oct 23, 2024 01:01 PM AMBULATORY - NONE [place] [facility] Active, Pending, and Scheduled Orders This section includes a listing of several types of active, pending, and scheduled orders, including clinic medications orders, diagnostic test orders, procedure orders and consult orders; where the start date of the order is 45 days before the date of the Encounter or 45 days after the date of theEncounter. The data comes from all [facility]. Test Date/Time Test Type Test Details Facility Name May 03, 2024 12:00 AM Laboratory - Chemistry Order URORISK DIAGNOSTIC PROFILE(Q) 24H RENAL STONE KIT 24H URINE SP [facility] Jun 28, 2024 12:58 PM Consult Order PALLIATIVE CARE OUTPATIENT [facility] Water Pollution Control Technician's [facility] Jul 06, 2024 07:22 AM Consult Order CSP PCAFC HOME-CARE ASSESSMENT OUTPT Cons Water Pollution Control Technician's [facility] Jul 07, 2024 02:02 PM Consult Order OCCUPATION AL THERAPY OUTPATIENT Cons Water Pollution Control Technician's [facility] Lab Results: +/- 30 days of [...] Range Comment Jun 07, 2024 05:30 PM [facility] URINALYSIS W/REFLEX TO CULTURE Specimen Type: URINE No comment entered. Ordering Provider: KAREEM CERNA Report Released Date/Time: Jun 07, 2024 04:57 PM Reporting Lab: [facility] [address] [facility] [address] Performing Lab: [facility] [address] [facility] [address] URINE COLOR Light-Yellow NOT DEFINED SPECIFIC GRAVITY [...] Date/Time Current Smoking Status Comment Nataly schaeffer Jun 07, 2024 03:55 PM CURRENT SMOKER REINIER GAYLE [facility] Tobacco Use History This section includes a history of the smoking, or tobacco-related health factors, that were collected on or before the date of the Encounter. The data comes from the [place] facility where the Encounter took place. Date/Time Smoking Status/Tobacco Use Comment F acility Feb 21, 2024 10:15 AM VA-TOBACCO USE > 1 5 LESS THAN 30 YEARS [facility] Feb 21, 2024 10:15 AM VA-TOBACCO USE ADVICE [facility] Feb 21, 2024 10:15 AM VA-TOBACCO USE MAINTENANCE JOB TITLES NO [facility] Feb 21, 2024 10:15 AM VA-TOBACCO USE MED NO [facility] Feb 21, 2024 10:15 AM VA-TOBACCO USE WI 30 MIN OF WAKEUP [facility] Feb 21, 2024 10:15 AM VA-TOBACCO USER EVERY DAY [facility] Jul 17, 2021 02:27 PM CURRENT SMOKER REINIER Bhatia [facility] Jul 01, 2021 08:55 PM VA-VAAES TOBACCO U SE CURRENT NRT DECLINE [facility] Jul 01, 2021 02:41 PM CURRENT SMOKER REINIER GAYLE [facility] Dec 08, 2020 08:45 PM VA-TOBACCO [...] Jul 08, 2017 ADVANCE DIRECTIVE DISCUSSION ROJASPURNIMA [facility] Pathology Reports: +/- 30 days of [...] data comes from all [facility] facilities. Date/Time Pathology Report Provider Source Jun 07, 2024 05:30 PM LR MICROBIOLOGY RE PORT: Reporting Lab: [facility] [CLIA# [id number]] [address] [place] [address] Accession [UID]: [id number] [[id number]] Received: Jun 07, 2024@18:38 Collection sample: URINE CLEAN CATCH Collection date: Jun 07, 2024 17:30 Site/Specimen: URINE Provider: TODD CERNA Test(s) ordered: CULTURE,URINE CLEAN CATCH..... completed: Jun 10, 2024 12:19 * BACTERIOLOGY FINAL REPORT => Jun 12, 2024 11:34 TECH CODE: [id number] CULTURE RESULTS: 1. ENTEROCOCCUS FAECALIS - Quantity: [...] -=--=--=--=--=-- Performing Laboratory: Bacteriology Report Performed By: [facility] [CLIA# [id number]] [address] [place] [address] [facility] Encounter Notes: All associated encounter notes This section contains the clinical notes associated to the Encounter. Date/Time Encounter Note(s) Provider Source May 25, 2024 05:59 AM NONVA NOTE: LOCAL TITLE: NonVA Medical Records STANDARD TITLE: NONVA NOTE DATE OF NOTE: MAY 25, 2024@05:59 ENTRY DATE: JUN 08, 2024@05:59:55 AUTHOR: NAINA TORO COSIGNER: URGENCY: STATUS: COMPLETED NONVA 05/25/2024 CLIENT COORDINATION NOTE REPORT KACI WHALEY, PT /es/ Naina Toro MRT Signed: 06/08/2024 06:01 Receipt Acknowledged By: 06/08/2024 11:21 /es/ KYRA VELASQUEZ M.D INTERNAL MEDICINE, [facility] NAINA TORO [facility]
--- OUTSIDE RECORDS SUMMARY | 2024-07-07 22:27 | XMS_ITS | Encounter Summary ---
Author Name [place] Address [address] [place] [address] Care Team Providers Care Whizzer Name Role Phone KYRA VELASQUEZ Primary Care [...] ADVANTAGE MCR(W NR) * Aug 23, 2023 [id number] ANNALISA LOYD ITE PATIENT [facility] (WNR) MEDICARE ADVANTAGE [facility] (WNR) Aug 23, 2020 [id number] [phone] ANNALISA LOYD ITE PATIENT [facility] (WNR) MEDICARE [facility](W NR) Aug 23, 2012 [id number] ANNALISA LOYD ITE PATIENT Selected Encounter This section includes the information on record at [place] for the Encounter. Date/Time Encounter Type Encounter Description Reason Pro vider Source Jun 07, 2024 06:50 AM Outpatient Encounter COMMUNITY CARE CONSULT IHE Encounter Template Text not used by VA Plan of Treatment: Future Appointments (+ 6 months) and Future Tests (+/- 45 days) The Plan of Treatment section includes future care activities for the patient from all [place] [facility]. This section includes future appointments and future orders which are active, pending or scheduled. Future Appointments This section includes appointments that were scheduled to occur 6 months from the date of the Encounter, up to a maximum of 20 appointments. The data comes from all [facility]. Appointment Date/Time Appointment Type Appointme nt Facility Name Jun 13, 2024 10:00 AM AMBULATORY - SURGERY [facility] Jun 13, 2024 10:01 AM AMBULATORY - SURGERY [facility] Jun 15, 2024 09:00 AM AMBULATORY - NONE [place] [facility] Jun 20, 2024 11:30 AM AMBULATORY - NONE [place] [facility] Jun 21, 2024 12:30 PM AMBULATORY - SURGERY [facility] Jul 11, 2024 10:00 AM AMBULATORY - SURGERY [facility] Jul 11, 2024 10:01 AM AMBULATORY - SURGERY [place] [facility] Jul 24, 2024 11:00 AM AMBULATORY - SURGERY [facility] Jul 27, 2024 10:00 AM AMBULATORY - NONE [place] [facility] Aug 29, 2024 10:30 AM AMBULATORY - NONE [place] [facility] Aug 29, 2024 11:15 AM AMBULATORY - SURGERY [facility] Oct 23, 2024 01:00 PM AMBULATORY - MEDICINE [facility] Oct 23, 2024 01:01 PM AMBULATORY - NONE [place] [facility] Active, Pending, and Scheduled Orders This section includes a listing of several types of active, pending, and scheduled orders, including clinic medications orders, diagnostic test orders, procedure orders and consult orders; where the start date of the order is 45 days before the date of the Encounter or 45 days after the date of theEncounter. The data comes from all [facility]. 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 Ordering Provider: KAREEM CERNA Report Released Date/Time: Jun 07, 2024 04:57 PM Reporting Lab: [facility] [address] [facility] [address] Performing Lab: [facility] [address] [facility] [address] URINE COLOR Light-Yellow NOT DEFINED SPECIFIC GRAVITY [...] Source Jun 07, 2024 04:53 PM 0 [facility] Jun 07, 2024 03:56 PM 97 72 112/67 18 99 0 [facility] Jun 07, 2024 01:19 PM 97.1 84 105/71 14 99 [facility] Social History: Smoking Status [...] 07, 2024 03:55 PM CURRENT SMOKER REINIER Bhatia [facility] Tobacco Use History This section includes a history of the smoking, or tobacco-related health factors, that were collected on or before the date of the Encounter. The data comes from the [place] facility where the Encounter took place. Date/Time Smoking Status/Tobacco Use Comment F acility Feb 21, 2024 10:15 AM VA-TOBACCO USE > 1 5 LESS THAN 30 YEARS [facility] Feb 21, 2024 10:15 AM VA-TOBACCO USE ADVICE [facility] Feb 21, 2024 10:15 AM VA-TOBACCO USE PHYSICIST CRYOGENICS NO [facility] Feb 21, 2024 [...] Nov 18, 2017 ADVANCE DIRECTIVE REBECCARADHA Husam [facility] Jul 08, 2017 ADVANCE DIRECTIVE DISCUSSION PURNIMA ROJAS [facility] Pathology Reports: +/- 30 [...] PM LR MICROBIOLOGY RE PORT: Reporting Lab: [facility] [CLIA# [id number]] [address] [place] [address] Accession [UID]: [id number] [[id number]] Received: Jun 07, 2024@18:38 Collection sample: URINE CLEAN CATCH Collection date: Jun 07, 2024 17:30 Site/Specimen: URINE Provider: TODD CERNA Test(s) ordered: CULTURE,URINE CLEAN CATCH..... completed: Jun 10, 2024 12:19 * BACTERIOLOGY FINAL REPORT => Jun 12, 2024 11:34 TECH CODE: [id number] CULTURE RESULTS: 1. ENTEROCOCCUS FAECALIS - Quantity: [...] -=--=--=--=--=-- Performing Laboratory: Bacteriology Report Performed By: [facility] [CLIA# [id number]] [address] [place] [address] [facility] Encounter Notes: All associated encounter notes This section contains the clinical notes associated to the Encounter. Date/Time Encounter Note(s) Provider Source Jun 07, 2024 06:50 AM CONSULT: LOCAL TITLE: [facility] COMMUNITY CARE COORDINATION PLAN NOTE STANDARD TITLE: CONSULT DATE OF NOTE: JUN 07, 2024@06:50:01 ENTRY DATE: JUN 07, 2024@06:50:01 AUTHOR: ZOË ANDERSON COSIGNER: URGENCY: STATUS: COMPLETED SUBJECT: HSRM Care Coordination Plan Note [place] Facility Community Care Office Palliative Care Coordination Plan Note CCPN Number: 1 Last Name: Evert Hoffman First Name: Galina Mottan Social: [id number] CF#: [id number] CONSULT AND REFERRAL INFORMATION Name of Referring [place] Provider: KYRA William SEOC: [facility] 1.2.10 Level of Care Coordination: Complex Referral Number: [id number] Unique Consult ID: [id number] Patient Admitted (Yes/No):n If yes, then please complete the Discharge Planning Addendum. Chief Complaint: 78 yo male with multiple medical problems including cva 2020, sdh, history of seizures, nephrolithiasis, h/o bl ureteral stents s/p removal, htn,tobacco use, follicular lymphoma, AAA, thoracic aortic aneurysm, etoh dependence in remission NOTED ON CONSULT. Risks (e.g. clinical or biophysical risks identified from S/T tool or brief chart review, such as dementia, homelessness, no family support, etc. If unknown, state Unknown): Level of Care Coordination: Complex Ophelia review all notes, this note may have one or more of the following addenda associated: Care Coordination Follow Up: Appointment Management: Case Management: Continued Stay Review: Disease Management: Discharge Planning: Discharge Disposition: [place] Contact: Provider Contact: Transfer: [place] Handoff: FACILITY COMMUNITY CARE OFFICE CONTACT Site Name: [facility] Address: [address] [place] [address] [address], [place], [address] Phone #: [phone] Fax #: [phone] Specialty: PALLIATIVE CARE 'S CAREGIVER CONTACT INFO Is [place]'s caregiver same as next of kin listed in the demographic section of CPRS (Yes/No)?:[place] If no, provide the following: Caregiver Type: ALSO Bertha Humphreys PLAN:Consult Appt. on 06/20/24 @ 11:30 Authorization is active for, the listed duration found in the SEOC from first appointment listed. Will remain available to assist, [place] and/or CC provider prn questions/concerns PRN. CC Plan may include specialty and associated appointment information, date of surgery, post-op needs, post d/c appointment, and any other care coordination plan /vivian/ ZOË ANDERSON Registered Nurse Signed: 06/07/2024 06:50 ZOË ANDERSON [facility]
--- OUTSIDE RECORDS SUMMARY | 2024-07-07 22:27 | XMS_ITS | Encounter Summary ---
Author Name [place] Address [address] [place] [address] Care Team Providers Care Tower Erector Name Role Phone KYRA VELASQUEZ Primary Care [...] [facility] (WNR) MEDICARE [facility](W NR) * Aug 23, 2023 [id number] [phone] ANNALISA LOYD ITE PATIENT [facility] (WNR) MEDICARE ADVANTAGE [facility] (WNR) Aug 23, 2020 [id number] [phone] ANNALISA LOYD ITE PATIENT [facility] (WNR) MEDICARE ADVANTAGE [facility](W NR) Aug 23, 2012 [id number] ANNALISA LOYD ITJannette PATIENT Selected Encounter This section includes the information on record at [place] for the Encounter. Date/Time Encounter Type Encounter Description Reason Pro vider Source Apr 27, 2024 12:00 PM Outpatient Encounter ADMIN PAT [...] 13, 2024 10:00 AM AMBULATORY - SURGERY [facility] Jun 13, 2024 10:01 AM AM[place] [facility] Jun 15, 2024 09:00 AM [place]ULATORY - NONE [place] [facility] Jun 20, 2024 11:30 AM [place]ULATORY - NONE [place] [facility] Jun 21, 2024 12:30 PM AM[place]UL[place]ORY [place] [facility] Jul 11, 2024 10:00 AM AMBULAT[facility] - [facility] Jul 11, 2024 10:01 AM AMBULATORY - SURGERY [facility] Active, [...] PM Consult Order COMMUNITY CARE-ALLERGY Cons Senior Major Gifts Officer's Choice [facility] May 03, 2024 12:00 [...] Type: PLASMA Comment: , Tests performed on Beam. Moses [id number]) Ordering Provider: DAVID FAM Report Released Date/Time: Nov 15, 2023 11:30 AM Reporting Lab: [facility] [address] [facility] [place] [address] Performing Lab: [facility] [address] [facility] [address] UREA NITROGEN 10 mg/dL 03-16May 04, 2024 10:32 AM [facility] CREATININE WITH eGFR PANEL Specimen Type: PLASMA Comment: , Tests performed on Beam. Moses SN:[id number]) Ordering Provider: DAVID FAM Report Released Date/Time: Nov 15, 2023 11:30 AM Reporting Lab: [facility] [address] [facility] [place] [address] Performing Lab: [facility] [address] [facility] [address] CREATININE 0.91 mg/dL 0.50-1.50 eGFR(CKD-EPI 2020) 86 [...] AM VA-TOBACCO USER EVERY DAY [facility] Tobacco Use History This section [...] 21, 2024 10:15 AM VA-TOBACCO USE MACHINE TRIMMER NO [facility] Feb 21, 2024 10:15 [...] CTA ABDOMEN AND PE LVIS: GALINA LOYD [id number] -1945 M Exm Date: MAY 04, 2024@12:30 Req Phys: VIMAL FAM Pat Loc: [facility] VASCULAR 15 M3RH (Req'g Lo Img Loc: CT SCAN (OOS) Service: [place] [address] (Case [id number] COMPLETE) CTA ABDOMEN AND PELVIS (CT Detailed) CPT:20774 Contrast Media : Non-ionic Iodinated Reason for [...] 05, 2024 Date Verified: MAY 05, 2024 Aircraft Tool Maker E-Sig:/PARIS/NÉSTOR PASCUAL Report: CTA ABDOMEN AND PELVIS [...] REQUIRED Primary Interpreting Staff: NÉSTOR PASCUAL, RADIOLOGIST (Aircraft Tool Maker) /NÉSTOR CONNER [facility] Encounter Notes: All associated encounter notes This section contains the clinical notes associated to the Encounter. Date/Time Encounter Note(s) Provider Source Apr 27, 2024 12:00 PM NONVA NOTE: LOCAL TITLE: NonVA Medical Records STANDARD TITLE: NONVA NOTE DATE OF NOTE: APR 27, 2024@12:00 ENTRY DATE: JUN 09, 2024@13:59:50 AUTHOR: AGGIE JERONIMO EXP COSIGNER: URGENCY: STATUS: COMPLETED VistA Imaging - Scanned Document New Note Dates of Service (Procedure/Event): 04/27/2024, 05/15/2024 Note Title: NonVA Medical Records Origin: NON[place] Type: ORDER Specialty: NURSING Procedure: HOME VISIT-[facility] SCANNED DOCUMENT SIGNATURE NOT REQUIRED Electronically Filed: 06/09/2024 by: AGGIE Gandara Tobi [facility]
--- OUTSIDE RECORDS SUMMARY | 2024-07-07 22:28 | XMS_ITS | Encounter Summary ---
Author Name [place] Address [address] [place] [address] Care Team Providers Care Welfare Director Name Role Phone KYRA VELASQUEZ Primary [...] Ervin's Name Patient's Relationship to Policy Ervin [facility] (WNR) MEDICARE [facility](W NR) * Aug 23, 2023 [id number] [phone] ANNALISA LOYD ITE PATIENT [facility] (WNR) MEDICARE ADVANTAGE [facility] (WNR) Aug 23, 2020 [id number] [phone] ANNALISA LOYD ITE PATIENT [facility] (WNR) MEDICARE ADVANTAGE [facility](W NR) Aug 23, 2012 [id number] [phone] ANNALISA LOYD ITJannette PATIENT Selected Encounter This section includes the information on record at [place] for the Encounter. Date/Time Encounter Type Encounter Description Reason Pro vider Source Jun 12, 2024 12:39 PM Outpatient Encounter ADMIN PAT ACTIVTIES (MASNONCT) [...] AM AMBULATORY [place] [facility] Jun 15, 2024 09:00 AM AM[place]ULATORY - [place]ONE [place] [facility] Jun 20, 2024 11:30 AM AMBULATORY - NONE [place] [facility] Jun 21, 2024 12:30 PM [place] [facility] Jul 11, 2024 10:00 AM AMBULATORY - SURGERY [facility] Jul 11, 2024 10:01 AM [place] [facility] Jul 24, 2024 11:00 AM [place] [facility] Jul 27, 2024 10:00 AM AMBULATORY - NONE [place] [facility] Aug 29, 2024 10:30 AM AMBULATORY - NONE [place] [facility] Aug 29, 2024 11:15 AM AMBUL[place]ORY - [place] [facility] Oct 23, 2024 01:00 PM AMBULATORY - MEDICINE [facility] Oct 23, 2024 01:01 PM AMBULATORY - NONE [place] [facility] Active, Pending, and Scheduled Orders This section includes a listing of several types of active, pending, and scheduled orders, including clinic medications orders, diagnostic test orders, procedure orders and consult orders; where the start date of the order is 45 days before the date of the Encounter or 45 days after the date of theEncounter. The data comes from all [facility]. Test Date/Time Test Type Test Details Facility Name May 03, 2024 12:00 AM Laboratory - Chemistry Order URORISK DIAGNOSTIC PROFILE(Q) 24H RENAL STONE KIT 24H URINE SP [facility] Jun 28, 2024 12:58 PM Consult Order PALLIATIVE CARE OUTPATIENT [facility] Central Stores Attendant's [facility] Jul 06, 2024 07:22 AM Consult Order CSP PCAFC HOME-CARE ASSESSMENT OUTPT Cons [employer] Attendant's [facility] Jul 07, 2024 02:02 PM Consult Order OCCUPATION AL THERAPY OUTPATIENT Cons [employer] Attendant's [facility] Lab Results: +/- 30 days of the encounter This section includes the Chemistry and Hematology Lab Results on record with [place] for the patient. Radiology Reports and Pathology [...] Reporting Lab: [facility] [address] [facility] [address] Performing Lab: [facility] [address] [facility] [address] URINE COLOR Light-Yellow NOT DEFINED SPECIFIC GRAVITY [...] 2024 03:55 PM CURRENT SMOKER REINIER GAYLE HELEN DEVOS [...] > 1 5 LESS THAN 30 YEARS [facility] Feb 21, 2024 10:15 AM VA-TOBACCO USE ADVICE [facility] Feb 21, 2024 10:15 AM VA-TOBACCO USE LEGAL RESEARCHER NO [facility] Feb 21, 2024 [...] Jul 08, 2017 ADVANCE DIRECTIVE DISCUSSION ROJASPURNIMA [facility] Pathology Reports: +/- 30 [...] comes from all [facility] facilities. Date/Time Pathology Report Provider Source Jun 07, 2024 05:30 PM LR MICROBIOLOGY RE PORT: Reporting Lab: [facility] [CLIA# [id number]] [address] [place] [address] Accession [UID]: [id number] [[id number]] Received: Jun 07, 2024@18:38 Collection sample: URINE CLEAN CATCH Collection date: Jun 07, 2024 17:30 Site/Specimen: URINE Provider: TODD CERNA Test(s) ordered: CULTURE,URINE CLEAN CATCH..... completed: Jun 10, 2024 12:19 * BACTERIOLOGY FINAL REPORT => Jun 12, 2024 11:34 TECH CODE: [id number] CULTURE RESULTS: 1. ENTEROCOCCUS FAECALIS - Quantity: [...] Performing Laboratory: Bacteriology Report Performed By: [facility] [CLIA# [id number]] [address] [facility] [place] [address] SONYA [facility] Encounter Notes: All associated encounter notes This section contains the clinical notes associated to the Encounter. Date/Time Encounter Note(s) Provider Source Jun 12, 2024 12:39 PM ADMINISTRATIVE NOT E: LOCAL TITLE: CCC: SCHEDULING ADMINISTRATION STANDARD TITLE: ADMINISTRATIVE NOTE DATE OF NOTE: JUN 12, 2024@12:39 ENTRY DATE: JUN 12, 2024@12:39:33 AUTHOR: FELIPE VALVERDE EXP COSIGNER: URGENCY: STATUS: COMPLETED CCC: SCHEDULING ADMINISTRATION Has ADDENDA Vet called stating he missed call from [facility]. HE WONDER'S IF ANTIBIOTIC COMES IN LIQUID FORM.PLS CALL BACK AT [phone]. /huber LOPEZ 1 [facility] AMSA Signed: 06/12/2024 12:41 Receipt Acknowledged By: 06/12/2024 12:49 /huber GIL RN 06/13/2024 08:10 /vivian/ JENIFER SHANE LPN 06/12/2024 ADDENDUM STATUS: COMPLETED contacted pharmacy- does not come in liquid- informed of such. /vivian/ OJ GIL RN Signed: 06/12/2024 12:50 FELIPE VALVERDE [facility]
--- OUTSIDE RECORDS SUMMARY | 2024-07-07 22:28 | XMS_ITS ---
Author Name Department [place] Address [address] [place] [address] Care Team Providers Care Investigator Welfare Name Role Phone KYRA VELASQUEZ Primary Care [...] to Policy Ervin [facility] (WNR) MEDICARE ADVANTAGE [facility](W NR) * Aug 23, 2023 [id number] ANNALISA LOYD ITE PATIENT [facility] (WNR) MEDICARE ADVANTAGE [facility] (WNR) Aug 23, 2020 [id number] [phone] ANNALISA LOYD ITE PATIENT [facility] (WNR) MEDICARE [facility](W NR) Aug 23, 2012 [id number] [phone] ANNALISA LOYD ITE PATIENT Selected Encounter This section includes the information on record at [place] for the Encounter. Date/Time Encounter Type Encounter Description Reason Pro vider Source May 26, 2024 12:00 PM Outpatient Encounter COMMUNITY CARE CONSULT IHE Encounter Template Text not used by VA Plan of Treatment: Future Appointments (+ 6 months) and Future Tests (+/- 45 days) The Plan of Treatment section includes future care activities for the patient from [facility] [place] [facility]. This section includes future appointments and future orders which are active, pending or scheduled. Future Appointments This section includes appointments that were scheduled to occur 6 months from the date of the Encounter, up to a maximum of 20 appointments. The data comes from all [facility]. Appointment Date/Time Appointment Type Appointme nt Facility Name Jun 07, 2024 01:00 PM AM[place]UL[place]ORY [place] [facility] Jun 07, 2024 03:55 PM AMBULATORY - MEDICINE [facility] Jannette GAYLE [facility] Jun 13, 2024 10:00 AM AMBULATORY - SURGERY [facility] Jun 13, 2024 10:01 AM [place] [facility] Jun 15, 2024 09:00 AM [place]ULATORY - NONE [place] [facility] Jun 20, 2024 11:30 AM [place]ULATORY - NONE [place] [facility] Jun 21, 2024 12:30 PM [place] [facility] Jul 11, 2024 10:00 AM AMBULATORY - SURGERY [facility] Jul 11, 2024 10:01 AM [place] [facility] Jul 24, 2024 11:00 AM [place] [facility] Jul 27, 2024 10:00 AM [place]ORY - [place]ONE [place] [facility] Aug 29, 2024 10:30 AM [place]ULATORY - [place]ONE [place] [facility] Aug 29, 2024 11:15 AM [place] [facility] Oct 23, 2024 01:00 PM AMBULATORY - MEDICINE [facility] Oct 23, 2024 01:01 PM [place]ULATORY - NONE [place] [facility] Active, Pending, [...] PM Consult Order PALLIATIVE CARE OUTPATIENT Cons Documentation Billing Clerk's [facility] Jul 06, 2024 07:22 AM Consult Order CSP PCAFC HOME-CARE ASSESSMENT OUTPT Cons Documentation Billing Clerk's [facility] Jul 07, 2024 02:02 PM Consult Order OCCUPATION AL THERAPY OUTPATIENT Cons Documentation Billing Clerk's [facility] Lab Results: +/- 30 days [...] HOSPITAL [address] [facility] [address] Performing Lab: [facility] [address] [facility] [address] URINE COLOR Light-Yellow NOT DEFINED SPECIFIC GRAVITY [...] MICROSCOPIC-iQ Completed May 04, 2024 10:32 AM [facility] UREA NITROGEN Specimen Type: PLASMA Comment: , Tests performed on [employer]ing SN:[id number] ([id number]) Ordering Provider: AUBREY FAM Report Released Date/Time: Nov 15, 2023 11:30 AM Reporting Lab: [facility] [address] [facility] [address] Performing Lab: [facility] [address] [facility] [address] UREA NITROGEN 10 mg/dL 03-16May 04, 2024 10:32 AM [facility] CREATININE WITH eGFR PANEL Specimen Type: PLASMA Comment: , Tests performed on [employer]opes SN:[id number] ([id number]) Ordering Provider: AUBREY FAM Report Released Date/Time: Nov 15, 2023 11:30 AM Reporting Lab: [facility] [address] [facility] [address] Performing Lab: [facility] [address] [facility] [address] CREATININE 0.91 mg/dL 0.50-1.50 eGFR(CKD-EPI 2020) 86 [...] Feb 21, 2024 10:15 AM VA-TOBACCO USE LABORER DAIRY FARM NO [facility] Feb 21, 2024 10:15 AM VA-TOBACCO USE MED NO [facility] Feb 21, 2024 10:15 AM VA-TOBACCO USE WI 30 MIN OF WAKEUP [facility] Feb 21, 2024 10:15 AM VA-TOBACCO USER EVERY DAY [facility] Jul 17, 2021 02:27 PM CURRENT SMOKER WHIT Jannette [facility] Jul 01, 2021 08:55 PM VA-VAAES TOBACCO U SE CURRENT NRT DECLINE [facility] Jul 01, 2021 02:41 PM CURRENT SMOKER REINIER GAYLE [facility] Dec 08, 2020 08:45 PM VA-TOBACCO USER [...] ABDOMEN AND PE LVIS: GALINA LOYD CARISA [id number] -1945 M Exm Date: MAY 04, 2024@12:30 Req Phys: VIMAL FAM Pat Loc: [facility] VASCULAR 15 M3RH (Req'g Lo Img Loc: CT SCAN (OOS) Service: [place] [address] (Case [id number] COMPLETE) CTA ABDOMEN AND PELVIS [...] 05, 2024 Date Verified: MAY 05, 2024 Freight Car Cleaner E-Sig:/ES/NÉSTOR PASCUAL Report: CTA ABDOMEN AND PELVIS [...] REQUIRED Primary Interpreting Staff: NÉSTOR PASCUAL, RADIOLOGIST (Freight Car Cleaner) /NÉSTOR CONNER [facility] Pathology Reports: +/- 30 days [...] RE PORT: Reporting Lab: [facility] [CLIA# [id number]] [address] [place] [address] Accession [UID]: [id number] [[id number]] Received: Jun 07, 2024@18:38 Collection sample: URINE CLEAN CATCH Collection date: Jun 07, 2024 17:30 Site/Specimen: URINE Provider: TODD VALVERDE Test(s) ordered: CULTURE,URINE CLEAN CATCH..... completed: Jun 10, 2024 12:19 * BACTERIOLOGY FINAL REPORT => Jun 12, 2024 11:34 TECH CODE: [id number] CULTURE RESULTS: 1. ENTEROCOCCUS FAECALIS - Quantity: [...] Bacteriology Report Performed By: [facility] [CLIA# [id number]] [address] [place] [address] [facility] Encounter Notes: All associated encounter notes This section contains the clinical notes associated to the Encounter. Date/Time Encounter Note(s) Provider Source May 26, 2024 12:00 PM NONVA CONSULT: LOCAL TITLE: COMMUNITY CARE CONSULT RESULT NOTE STANDARD TITLE: NONVA CONSULT DATE OF NOTE: MAY 26, 2024@12:00 ENTRY DATE: JUN 19, 2024@09:28:33 AUTHOR: AGGIE JERONIMO EXP COSIGNER: URGENCY: STATUS: COMPLETED VistA Imaging - Scanned Document COMMUNITY CARE-CASE MANAGEMENT OUTPATIENT Cons Consult # [id number] Date of Service (Procedure/Event): 05/26/2024 Note Title: COMMUNITY CARE CONSULT RESULT NOTE Origin: FEE Type: ORDER Specialty: NURSING Procedure: VISIT-PHYSICIAN ORDER-MEDICATION [facility] SCANNED DOCUMENT SIGNATURE NOT REQUIRED Electronically Filed: 06/19/2024 by: AGGIE Gandara [facility]
--- OUTSIDE RECORDS SUMMARY | 2024-07-07 22:28 | XMS_ITS | Encounter Summary ---
Author Name [place] Address [address] [place] [address] Care Team Providers Care Die Cast Technician Name Role Phone KYRA VELASQUEZ Primary [...] [facility] (WNR) MEDICARE [facility](W NR) * Aug 23, 2023 [id number] ANNALISA LOYD ITE PATIENT [facility] (WNR) MEDICARE ADVANTAGE [facility] (WNR) Aug 23, 2020 [id number] [phone] ANNALISA LOYD ITE PATIENT [facility] (WNR) MEDICARE ADVANTAGE [facility](W NR) Aug 23, 2012 [id number] ANNALISA LOYD ITJannette PATIENT Selected Encounter This section includes the information on record at [place] for the Encounter. Date/Time Encounter Type Encounter Description Reason Pro vider Source Jun 12, 2024 02:17 PM Outpatient Encounter ADMIN PAT ACTIVTIES (MASNONCT) [...] 13, 2024 10:00 AM AMBULATORY - SURGERY [facility] Jun 13, 2024 10:01 AM [place] [facility] Jun 15, 2024 09:00 AM [place]ULATORY - [place] [facility] Jun 20, 2024 11:30 AM AM[place]ULATORY - NONE [place] [facility] Jun 21, 2024 12:30 PM [place] [facility] Jul 11, 2024 10:00 AM AMBULATORY - SURGERY [facility] Jul 11, 2024 10:01 AM [place] [facility] Jul 24, 2024 11:00 AM [place] [facility] Jul 27, 2024 10:00 AM AMBULATORY - NONE [place] [facility] Aug 29, 2024 10:30 AM AMBULATORY - NONE [place] [facility] Aug 29, 2024 11:15 AM AM[place] [facility] Oct 23, 2024 01:00 PM AMBULATORY - MEDICINE [facility] Oct 23, 2024 01:01 PM AMBULATORY - NONE [place] [facility] Active, Pending, and Scheduled [...] 12:58 PM Consult Order PALLIATIVE CARE OUTPATIENT [facility] Architectural Associate's [facility] Jul 06, 2024 07:22 AM Consult Order CSP PCAFC HOME-CARE ASSESSMENT OUTPT Cons Architectural Associate's [facility] Jul 07, 2024 02:02 PM Consult Order 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 The data comes from the [place] facility where the Encounter took place. Date/Time Smoking Status/Tobacco Use Comment F acility Feb 21, 2024 10:15 AM VA-TOBACCO USE > 1 5 LESS THAN 30 YEARS [facility] Feb 21, 2024 10:15 AM VA-TOBACCO USE ADVICE [facility] Feb 21, 2024 10:15 AM VA-TOBACCO USE PLANT CONTROLS SPECIALIST NO [facility] Feb 21, 2024 [...] Jul 08, 2017 ADVANCE DIRECTIVE DISCUSSION ROJASPURNIMA [facility] Pathology Reports: +/- 30 [...] the Encounter. The data comes from all [facility] facilities. Date/Time Pathology Report Provider Source Jun 07, 2024 05:30 PM LR MICROBIOLOGY RE PORT: Reporting Lab: [facility] [CLIA# [id number]] [address] [place] [address] Accession [UID]: [id number] [[id number]] Received: Jun 07, 2024@18:38 Collection sample: URINE CLEAN CATCH Collection date: Jun 07, 2024 17:30 Site/Specimen: URINE Provider: TODD CERNA Test(s) ordered: CULTURE,URINE CLEAN CATCH..... completed: Jun 10, 2024 12:19 * BACTERIOLOGY FINAL REPORT => Jun 12, 2024 11:34 TECH CODE: [id number] CULTURE RESULTS: 1. ENTEROCOCCUS FAECALIS - Quantity: [...] Report Performed By: [facility] [CLIA# [id number]] [address] [place] [address] [facility] Encounter Notes: All associated encounter notes This section contains the clinical notes associated to the Encounter. 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 If patient requires admission please follow Contact Precautions in addition to Standard precautions to prevent transmission. Pt. requires private room or cohort with another VRE positive patient. If this organism is cultured in a sputum specimen and patient is being treated for pneumonia or on a ventilator, then droplet precautions should be maintained in addition to contact precautions. Sending department must notify receiving department of precaution requirements prior to transport for testing or procedures. Maintain precautions until patient has had repeat cultures of affected site done twice greater than 1 week apart and off antibiotics for at least 1 week, as well as a kevin rectal swab or stool sent for VRE. If original site was blood, healed/amputated wound, or sputum in which the patient is not ventilates or has a productive cough, then kevin- rectal swab alone using above time criteria meets criteria for clearance. Any questions, please call Mireille Hunt ext. [phone]/YOON or Damian Motta ext. [phone]/YOON/[phone] /es/ MIREILLE VALDEZ Infection Prevention-MDRO Coordinator Signed: 06/12/2024 14:19 MIREILLE VALDEZ [facility]
--- OUTSIDE RECORDS SUMMARY | 2024-07-07 22:28 | XMS_ITS | Encounter Summary ---
Author Name [place] Address [address] [place] [address] Care Team Providers Care Doctor Of Osteopathy Name Role Phone KYRA VELASQUEZ Primary Care [...] Policy Ervin [facility] (WNR) MEDICARE [facility](W NR) * Aug 23, 2023 [id number] ANNALSIA LOYD ITE PATIENT [facility] MCR (WNR) MEDICARE ADVANTAGE [facility] (WNR) Aug 23, 2020 [id number] [phone] ANNALISA LOYD ITE PATIENT [facility] (WNR) MEDICARE ADVANTAGE [facility](W NR) Aug 23, 2012 [id number] ANNALISA LOYD ITJannette PATIENT Selected Encounter This section includes the information on record at [place] for the Encounter. Date/Time Encounter Type Encounter Description Reason Pro vider Source Jun 16, 2024 10:39 AM Outpatient Encounter ADMIN PAT ACTIVTIES (MASNONCT) IHE Encounter Template Text not used by [place] Plan of Treatment: Future Appointments (+ 6 months) and Future Tests (+/- 45 days) The Plan of Treatment section includes future care activities for the patient from all [place] [facility] This section includes future appointments and future orders which are active, pending or scheduled. Future Appointments This section includes appointments that were scheduled to occur 6 months from the date of the Encounter, up to a maximum of 20 appointments. The data comes from all [facility]. Appointment Date/Time Appointment Type Appointme nt Facility Name Jun 20, 2024 11:30 AM AMBULATORY - NONE [facility] Jun 21, 2024 12:30 PM AMBULATORY - SURGERY [facility] Jul 11, 2024 10:00 AM AMBULATORY - SURGERY [facility] Jul 11, 2024 10:01 AM [facility] Jul 24, 2024 11:00 AM [facility] Jul 27, 2024 10:00 AM AMBULATORY - NONE [facility] Aug 29, 2024 10:30 AM AMBULATORY - NONE [facility] [place] [facility] Aug 29, 2024 11:15 AM [facility] Oct 23, 2024 01:00 PM AMBULATORY - MEDICINE [facility] Oct 23, 2024 01:01 PM AMBULATORY - NONE [place] [place] [facility] Active, Pending, and Scheduled Orders This section includes a listing of several types of active, pending, and scheduled orders, including clinic medications orders, diagnostic test orders, procedure orders and consult orders; where the start date of the order is 45 days before the date of the Encounter or 45 days after the date of theEncounter. The data comes from all [facility]. 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 [facility] Lab Results: +/- 30 days [...] [address] [facility] [address] Performing Lab: [facility] [address] [facility] [address] URINE COLOR Light-Yellow NOT DEFINED SPECIFIC GRAVITY [...] 2024 03:55 PM CURRENT SMOKER REINIER Bhatia [facility] Tobacco Use History This [...] Feb 21, 2024 10:15 AM VA-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 Jul 01, 2021 08:55 PM VA-VAAES TOBACCO U SE CURRENT NRT DECLINE [facility] Jul 01, 2021 02:[address] [facility] Dec 08, 2020 08:45 [...] comes from all [place] treatment facilities. Date/Time Pathology Report Provider Source Jun 07, 2024 05:30 PM LR MICROBIOLOGY RE PORT: Reporting Lab: [facility] [CLIA# [id number]] [address] [place] [address] Accession [UID]: [facility] [id number] [[id number]] Received: Jun 07, 2024@18:38 Collection sample: URINE CLEAN CATCH Collection date: Jun 07, 2024 17:30 Site/Specimen: URINE Provider: TODD CERNA Test(s) ordered: CULTURE,URINE CLEAN CATCH..... completed: Jun 10, 2024 12:19 * BACTERIOLOGY FINAL REPORT => Jun 12, 2024 11:34 TECH CODE: [id number] CULTURE RESULTS: 1. ENTEROCOCCUS FAECALIS - Quantity: [...] Laboratory: Bacteriology Report Performed By: SONYA PINON [facility] [CLIA# [id number]] [address] [place] [address] S[facility] Encounter Notes: All associated encounter notes This section contains the clinical notes associated to the Encounter. Date/Time Encounter Note(s) Provider Source Jun 16, 2024 02:53 PM ADDENDUM: LOCAL TITLE: Addendum STANDARD TITLE: ADDENDUM DATE OF NOTE: JUN 16, 2024@14:53:48 ENTRY DATE: JUN 16, 2024@14:53:50 AUTHOR: RAYMUNDO HASSAN COSIGNER: URGENCY: STATUS: COMPLETED MAYA Arellano with [facility] returning nurse call and awaiting call back at [phone] ext. [id number] /vivian/ RAYMUNDO HASSAN [employer] Elevator Erector Signed: 06/16/2024 14:54 Receipt Acknowledged By: 06/19/2024 08:05 /vivian/ EFRAÍN VALIENTE --- Original Document --- 06/16/24 CCC: SCHEDULING ADMINISTRATION: Patient Demographics Patient Name: GALINA LOYD JR Patient Primary Phone: [phone] Patient Primary [address]: [address] [place] [id number] Patient : 1945 Patient Age: 78 Current Location: [facility] Caller/Recipient Relation to Patient: Other If Other Describe Relation to Patient: RN Caller Name: Eileen Administrative Administrative Note Reason: Home Health / Half-Way Administrative Note Comments: MAYA Arellano with [facility] called to report that the has a low BP. She states the has had low readings throughout the week but that it is currently at it's lowest at 88/54. She states the is experiencing low energy and eating 25% of meals and only drinking 30oz of fluid a day. She states his urine is slightly dark in color and he's only having 600-900 for urinary output in a 24 hour period. They declined transfer to triage at this time. Kindly assist with a return call to discuss at [phone] ext. [phone] IMPORTANT: This note was created by [facility] Clinical Contact Center staff. Please do not alert the staff member by adding them as a signer for future communications. Alerts are not monitored by this user. /vivian/ PAULETTE LOPEZ 1 [facility] Signed: 06/16/2024 10:39 Receipt Acknowledged By: * AWAITING SIGNATURE * EILEEN SHANE 06/16/2024 12:58 /vivian/ EFRAÍN VALIENTE for OJ MAJORDENISE 06/16/2024 ADDENDUM STATUS: COMPLETED call out to home health RN /vivian/ EFRAÍN VALIENTE Signed: 06/16/2024 11:56 06/16/2024 ADDENDUM STATUS: COMPLETED Spoke with family. The patient is sleeping at the present time. They state that he does not have an appetite and is not drinking much at all. Denies dizziness, but states that he is fatigued and weak. Encouraged that the patient should be evaluated in the ER for possible dehydration. They state that he will not go to the ER. Also encouraged family to offer small sips of fluid throughout the day. /vivian/ EFRAÍN VALIENTE Signed: 06/16/2024 12:57 06/16/2024 ADDENDUM STATUS: COMPLETED Call out to Eileen at the [facility]. /huber VALIENTE Signed: 06/16/2024 15:24 RAYMUNDO HASSAN [facility] Jun 16, 2024 10:39 AM ADMINISTRATIVE NOT E: LOCAL TITLE: CCC: SCHEDULING ADMINISTRATION STANDARD TITLE: ADMINISTRATIVE NOTE DATE OF NOTE: JUN 16, 2024@10:39:52 ENTRY DATE: JUN 16, 2024@10:39:53 AUTHOR: PAULETTE CLEMONS COSIGNER: URGENCY: STATUS: COMPLETED CCC: SCHEDULING ADMINISTRATION Has ADDENDA Patient Demographics Patient Name: GALINA LOYD JR Patient Primary Phone: [phone] Patient Primary Address: [address] [place] [address] Patient : 1945 Patient Age: 78 Current Location: [facility] Caller/Recipient Relation to Patient: Other If Other Describe Relation to Patient: RN Caller Name: Eileen Administrative Administrative Note Reason: Home Health / Half-Way Administrative Note Comments: MAYA Arellano with [facility] called to report that the has a low BP. She states the has had low readings throughout the week but that it is currently at it's lowest at 88/54. She states the is experiencing low energy and eating 25% of meals and only drinking 30oz of fluid a day. She states his urine is slightly dark in color and he's only having 600-900 for urinary output in a 24 hour period. They declined transfer to triage at this time. Kindly assist with a return call to discuss at [phone] ext. [phone] IMPORTANT: This note was created by [facility] Clinical Contact Center staff. Please do not alert the staff member by adding them as a signer for future communications. Alerts are not monitored by this user. /vivian/ PAULETTE LOPEZ 1 [facility] AMSA Signed: 06/16/2024 10:39 Receipt Acknowledged By: 06/19/2024 10:58 /es/ EILEEN SHANE LPN 06/16/2024 12:58 /es/ EFRAÍN VALIENTE for OJ GIL 06/16/2024 ADDENDUM STATUS: COMPLETED call out to home health RN /vivian/ EFRAÍN VAILENTE Signed: 06/16/2024 11:56 06/16/2024 ADDENDUM STATUS: COMPLETED Spoke with family. The patient is sleeping at the present time. They state that he does not have an appetite and is not drinking much at all. Denies dizziness, but states that he is fatigued and weak. Encouraged that the patient should be evaluated in the ER for possible dehydration. They state that he will not go to the ER. Also encouraged family to offer small sips of fluid throughout the day. /vivian/ EFRAÍN VALIENTE Signed: 06/16/2024 12:57 06/16/2024 ADDENDUM STATUS: COMPLETED MAYA Arellano with [facility] nurse call and awaiting call back at [phone] ext. [phone] /vivian/ RAYMUNDO HASSAN [employer] Elevator Erector Signed: 06/16/2024 14:54 Receipt Acknowledged By: 06/19/2024 08:05 /huber VALIENTE 06/16/2024 ADDENDUM STATUS: COMPLETED Call out to Eileen at the [facility]. /huber VALIENTE Signed: 06/16/2024 15:24 PAULETTE CLEMONS [facility]
--- OUTSIDE RECORDS SUMMARY | 2024-07-07 22:28 | XMS_ITS | Encounter Summary ---
Author Name Department of [place] Organization [place] Address [address] [place] [address] Care Team Providers Care Pai Gow Manager Name Role Phone KYRA VELASQUEZ Primary [...] ADVANTAGE MCR(W NR) * Aug 23, 2023 [id number] ANNALISA LOYD ITE PATIENT [facility] (WNR) MEDICARE ADVANTAGE [facility] (WNR) Aug 23, 2020 [id number] [phone] ANNALISA LOYD ITE PATIENT [facility] (WNR) MEDICARE [facility](W NR) Aug 23, 2012 [id number] ANNALISA LOYD ITE PATIENT Selected Encounter This section includes the information on record at [place] for the Encounter. 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 This section includes future appointments and future orders which are active, pending or scheduled. Future Appointments This section includes appointments that were scheduled to occur 6 months from the date of the Encounter, up to a maximum of 20 appointments. The data comes from all [place] treatment facilities. Appointment Date/Time Appointment Type Appointme nt Facility Name Jun 15, 2024 09:00 AM AMBULATORY - NONE [place] [facility] Jun 20, 2024 11:30 AM AMBULATORY - NONE [place] [facility] Jun 21, 2024 12:30 PM AMBULATORY - [place]GERY [place] [facility] Jul 11, 2024 10:00 AM AMBULATORY - SURGERY [facility] Jul 11, 2024 10:01 AM AMBUL[place]ORY [place] [facility] Jul 24, 2024 11:00 AM AMBULATORY [place] [facility] Jul 27, 2024 10:00 AM AMBULATORY - NONE [place] [facility] Aug 29, 2024 10:30 AM AMBULATORY - NONE [place] [facility] Aug 29, 2024 11:15 AM AMBULATORY [place] [facility] Oct 23, 2024 01:00 PM AMBULATORY - MEDICINE [facility] Oct 23, 2024 01:01 PM AMBULATORY - NONE [place] [facility] Active, Pending, and Scheduled Orders This section includes a listing of several types of active, pending, and scheduled orders, including clinic medications orders, diagnostic test orders, procedure orders and consult orders; where the start date of the order is 45 days before the date of the Encounter or 45 days after the date of theEncounter. The data comes from all [place] treatment facilities. Test Date/Time Test Type Test Details Facility Name May 03, 2024 12:00 AM Laboratory - Chemistry Order URORISK DIAGNOSTIC PROFILE(Q) 24H RENAL STONE KIT 24H URINE SP [facility] Jun 28, 2024 12:58 PM Consult Order PALLIATIVE CARE OUTPATIENT Cons Remote [employer] Jul 06, 2024 07:22 AM Consult Order CSP PCAFC HOME-CARE ASSESSMENT OUTPT Cons [facility] [employer] Jul 07, 2024 02:02 PM Consult Order OCCUPATION AL THERAPY OUTPATIENT Cons Remote [employer] Lab Results: +/- 30 days of [...] PM Reporting Lab: [facility] [address] [facility] [address] Performing Lab: [facility] [address] [facility] [address] URINE COLOR Light-Yellow NOT DEFINED SPECIFIC GRAVITY [...] 2022 09:30 AM VA-TOBACCO USER EVERY DAY [facility] Tobacco Use History This section includes a history of the smoking, or tobacco-related health factors, that were collected on or before the date of the Encounter. The data comes from the [place] facility where the Encounter took place. 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 NO [facility] May 14, 2022 09:30 AM VA-TOBACCO USE MED NO [facility] May 14, 2022 09:30 AM VA-TOBACCO USE WI 30 MIN OF WAKE UP [facility] May 14, 2022 09:30 AM VA-TOBACCO USER EVERY DAY [facility] Jun 27, 2020 09:30 AM VA-TOBACCO FORMER USER [facility] Jun 27, 2020 09:30 AM VA-TOBACCO QUIT < 1 YEAR [facility] December 28, 2018 11:23 AM VA-TOBACCO USE 30 YEARS OR MORE [facility] December 28, 2018 11:23 AM VA-TOBACCO USE ADVICE [facility] December 28, 2018 11:23 AM VA-TOBACCO USE WOMEN'S APPAREL SALESPERSON NO [facility] December 28, 2018 11:23 AM VA-TOBACCO USE MED NO [facility] December 28, 2018 11:23 AM VA-TOBACCO USE WI 30 MIN OF WAKE UP [facility] December 28, 2018 11:23 AM VA-TOBACCO USER EVERY DAY [facility] Aug 10, 2016 09:05 AM CURRENT SMOKER [facility] Aug 10, 2016 09:05 AM V1-PT [...] Nov 18, 2017 ADVANCE DIRECTIVE RADHA FERNANDEZ Husam [facility] Jul 08, 2017 ADVANCE DIRECTIVE DISCUSSION PURNIMA ROJAS [facility] Pathology Reports: +/- 30 days [...] comes from all [place] treatment facilities. Date/Time Pathology Report Provider Source Jun 07, 2024 05:30 PM LR MICROBIOLOGY RE PORT: Reporting Lab: [facility] [CLIA# [id number]] [address] [place] [address] Accession [UID]: [id number] [[id number]] Received: Jun 07, 2024@18:38 Collection sample: URINE CLEAN CATCH Collection date: Jun 07, 2024 17:30 Site/Specimen: URINE Provider: TODD VALVERDE Test(s) ordered: CULTURE,URINE CLEAN CATCH..... completed: Jun 10, 2024 12:19 * BACTERIOLOGY FINAL REPORT => Jun 12, 2024 11:34 TECH CODE: [id number] CULTURE RESULTS: 1. ENTEROCOCCUS FAECALIS - Quantity: [...] Bacteriology Report Performed By: [facility] [CLIA# [id number]] [address] [place] [address] [facility] Encounter Notes: All associated encounter notes This section contains the clinical notes associated to the Encounter. Date/Time Encounter Note(s) Provider Source Jun 13, 2024 10:01 AM TELEHEALTH NOTE: LOCAL TITLE: Telehealth Architectural Drafting Instructor Note STANDARD TITLE: TELEHEALTH NOTE DATE OF NOTE: JUN 13, 2024@10:01 ENTRY DATE: JUN 13, 2024@10:01:54 AUTHOR: ADITI GARCIA COSIGNER: URGENCY: STATUS: COMPLETED [...] always have the option to drive to [place] to see the provider in person. They [...] through an in-person visit at the nearest [place] clinical site offering the requested service, and the patient's right of refusal, at any time, for any Telehealth. Emergency contact information was obtained as follows: Current Location: [facility] Current Address: [address] [place], [place] [address] [place] Emergency Contact Name: ADITI GARCIA Emergency Relationship: TCT Emergency Number: [phone] /es/ ADITI GARCIA Health Architectural Drafting Instructor Signed: 06/13/2024 10:16 ADITI GARCIA [facility]
--- OUTSIDE RECORDS SUMMARY | 2024-07-07 22:28 | XMS_ITS ---
Author Name [facility] [place] [facility] [place] Address [address] [place] [address] Care Team Providers Care Freezer Tunnel Operator Name Role Phone RON KYRA Primary [...] to Policy Ervin [facility] (WNR) MEDICARE [facility](W NR) * Aug 23, 2023 [id number] [phone] ANNALISA EDUARDO ITE PATIENT [facility] (WNR) MEDICARE ADVANTAGE [facility] (WNR) Aug 23, 2020 [id number] [phone] ANNALISA EDUARDO ITE PATIENT [facility] (WNR) MEDICARE ADVANTAGE [facility](W NR) Aug 23, 2012 [id number] ANNALISA EDUARDO PATIENT Selected Encounter This section includes the information on record at [place] for the Encounter. Date/Time Encounter Type Encounter Description Reason Provider Source Jun 19, 2024 08:33 AM HC PRO PHONE CALL 5-10 MIN TELEPHONE/CRIS MONTOYA ICD-10-CM Z02.9 Encounter for administrative examinations, unspecified RYANNE PENA JESÚSJannette Encounter Template Text not used by [place] Assessments - Encounter Diagnoses This section includes the primary and secondary diagnoses documented for the Encounter. Date/Time Primary/Secondary Diagnosis Diagnosis Name Provider Source Jun 19, 2024 08:33 AM PRIMARY Encounter for administrative examinations, unspecified RYANNE PENA [facility] Plan of Treatment: Future Appointments (+ 6 months) and Future Tests (+/- 45 days) The Plan of Treatment section includes future care activities for the patient from all [place] [facility]. This section includes future appointments and [...] AMBULATORY - NONE [place] [place] [facility] Jun 21, 2024 12:30 PM AMBULATORY - SURGERY [facility] Jul 11, 2024 10:00 AM AMBULATORY - SURGERY [facility] Jul 11, 2024 10:01 AM AMBUL[facility]ORY - [place] [facility] Jul 24, 2024 11:00 AM [facility] - [place] [facility] Jul 27, 2024 10:00 AM AMBULATORY - NONE [place] [place] [facility] Aug 29, 2024 10:30 AM AMBULATORY - NONE [place] [place] [facility] Aug 29, 2024 11:15 AM AMBUL[place]ORY - [place] [facility] Oct 23, 2024 01:00 PM AMBULATORY - MEDICINE [facility] Oct 23, 2024 01:01 PM AMBULATORY - NONE [place] [place] [facility] Active, Pending, and Scheduled Orders [...] Date/Time Test Type Test Details Facility Name Jun 28, 2024 12:58 PM Consult Order PALLIATIVE CARE OUTPATIENT Cons [employer] [facility] Jul 06, 2024 07:22 AM Consult Order CSP PCAFC HOME-CARE ASSESSMENT OUTPT Cons [employer] [facility] Jul 07, 2024 02:02 PM Consult Order 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 The data comes from the [place] facility where the Encounter took place. Date/Time Smoking Status/Tobacco Use Comment F acility Feb 21, 2024 10:15 AM VA-TOBACCO USE > 1 5 LESS THAN 30 YEARS [facility] Feb 21, 2024 10:15 AM VA-TOBACCO USE ADVICE [facility] Feb 21, 2024 10:15 AM VA-TOBACCO USE POWER REGULATOR NO [facility] Feb 21, 2024 [...] DIRECTIVE DISCUSSION PURNIMA ROJAS [facility] Pathology Reports: +/- 30 [...] PM LR MICROBIOLOGY RE PORT: Reporting Lab: [facility] [CLIA# [id number]] [address] [place] [address] Accession [UID]: [id number] [[id number]] Received: Jun 07, 2024@18:38 Collection sample: URINE CLEAN CATCH Collection date: Jun 07, 2024 17:30 Site/Specimen: URINE Provider: TODD VALVERDE Test(s) ordered: CULTURE,URINE CLEAN CATCH..... completed: Jun 10, 2024 12:19 * BACTERIOLOGY FINAL REPORT => Jun 12, 2024 11:34 TECH CODE: [id number] CULTURE RESULTS: 1. ENTEROCOCCUS FAECALIS - Quantity: [...] Report Performed By: [facility] [CLIA# [id number]] [address] [facility] [place] [address] [facility] Encounter Notes: All associated encounter notes This section contains the clinical notes associated to the Encounter. Date/Time Encounter Note(s) Provider Source Jun 19, 2024 08:45 AM CAREGIVER CERTIFIC ATE: LOCAL TITLE: CSP PCAFC PRIMARY CARE COLLABORATION STANDARD TITLE: CAREGIVER CERTIFICATE DATE OF NOTE: JUN 19, 2024@08:45 ENTRY DATE: JUN 19, 2024@08:46:06 AUTHOR: RYANNE PENA EXP COSIGNER: URGENCY: STATUS: COMPLETED As part of the Program of Comprehensive Assistance for Family Caregiver (PCAFC), the Caregiver Support Program (CSP) collaborates with the [place]'s Primary Care Team to the maximum extent practicable. Primary Care Team means one or more medical device sales representative who care for a patient based on the clinical needs of the patient. Primary Care Teams must include a [place] Primary Care Provider who is a physician, advanced practice nurse or a physician architectural administrative assistant. The CSP is seeking input and/or sharing documentation such as comprehensive assessments or progress notes that discuss ADL needs and/or supervision, protection or instruction needs; or a treatment plan. Primary Care Team members are not responsible for determining eligibility for the PCAFC. Documentation for collaboration should be within twelve months from the valid application received date or reassessment date, as applicable. 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 7) VASHE WOUND THERAPY TOP SOLN APPLY APPLICATION ACTIVE TOPICALLY NEEDED PRESSURE INJURIES /es/ Ryanne TOBAR,RN PCAFC Perinatal Specialist Signed: 06/19/2024 08:47 Receipt Acknowledged By: 06/19/2024 08:53 /vivian/ KYRA GUTIERREZ M.D INTERNAL MEDICINE, [facility] RYANNE PENA [facility] Jun 19, 2024 08:33 AM CAREGIVER CERTIFIC ATE: LOCAL TITLE: CSP PCAFC APPLICATION INTAKE STANDARD TITLE: CAREGIVER CERTIFICATE DATE OF NOTE: JUN 19, 2024@08:33 ENTRY DATE: JUN 19, 2024@08:33:37 AUTHOR: RYANNE PENA EXP COSIGNER: URGENCY: STATUS: COMPLETED Program of Comprehensive Assistance for Family Caregivers (PCAFC) Application Intake The Local Caregiver Support Program (CSP) Staff contact and identified caregiver applicant(s) for the PCAFC to discuss the program application process and complete the application intake. A brief overview of the eligibility requirements, application process and appeal rights are reviewed with the [place] and caregiver applicant(s). Date of visit: May Identified the using full name and the following other barillas identifier(s): Full name: GALINA EDUARDO JR Full SSN: [id number] Date of : Sep The application intake was conducted using the telephone. Application received date: May Individuals providing input include: Primary Family Caregiver applicant Application Information Review: Local Caregiver Support Program (CSP) staff have reviewed and verified information contained in the 10-10CG. 10-10CG has been determined to be a valid application. [place] Information: address: [address] [place] [address] [place] phone #: [place] Facility where receives care: [facility] The [place] does not live in a foster home, assisted living, or other institutional location. The [place] does not have a legal guardian\conservator. The [place] has an Advance Directive. Advance Directive includes designation of a Durable Power of Operator Helper for Health Care (DPOA); name of individual listed to act on the 's behalf in the DPOA: Darrel Eduardo Copy is provided or on file in the medical record: Yes The [place] does not have a VA fiduciary. 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: Yes (* Serious injury means any service-connected disability that (1) is rated at 70 percent or more by VA, or (2) is combined with any other service-connected disability or disabilities, and a combined rating of 70 percent or more is assigned by VA.) 3) The individual receives care at home or will do so if VA designates a Family Caregiver: Yes 4) The individual receives ongoing care from a primary care team or will do so if VA designates a Family Caregiver: Yes 5) The individual resides in a State, defined as each of the several States, Territories, and [facility] state [facility]ions of the [facility], the [facility], and the [facility]: Yes Caregiver Requirements: Primary Family Caregiver Applicant Name: Darrel Eduardo VA Form 10-5345 (KLAUS) is not on file for Caregiver. Comment: N/A The Primary Family Caregiver applicant is 18 years of age or older. The Primary Family Caregiver applicant is a family member or will live payroll and benefits assistant with the [place] if designated as a Family Caregiver. Relationship to [place]: Spouse Address of applicant's residence: same as Requirement Status: The [place] and at least one Family Caregiver applicant meet all of the requirements listed above. Local CSP staff will coordinate the following next steps: Coordinate the necessary assessment(s) Coordinate the Electronic Health Record (EHR) for the Family Caregiver applicant(s) as needed Coordinate the Family Caregiver applicant(s) assessment /es/ Ryanne TOBAR,RN PCAFC Perinatal Specialist Signed: 06/19/2024 08:42 RYANNE PENA [facility]
--- OUTSIDE RECORDS SUMMARY | 2024-07-07 22:28 | XMS_ITS ---
Author Name [facility] [place] Organization [place] Address [address] [place] [address] Care Team Providers Care Shipping And Receiving Operator Name Role Phone KYRA VELASQUEZ Primary [...] Ervin's Name Patient's Relationship to Policy Ervin [facility] (WNR) MEDICARE ADVANTAGE [facility](W NR) * Aug 23, 2023 [id number] ANNALISA LOYD ITE PATIENT [facility] (WNR) MEDICARE ADVANTAGE [facility] (WNR) Aug 23, 2020 [id number] [phone] ANNALISA LOYD ITE PATIENT [facility] (WNR) MEDICARE ADVANTAGE [facility](W NR) Aug 23, 2012 [id number] ANNALISA LOYD ITE PATIENT Selected Encounter This section includes the [place] for the Encounter. Date/Time Encounter Type Encounter Description Reason Pro vider Source Jun 16, 2024 04:09 PM Outpatient Encounter TELEPHONE TRIAGE IHE Encounter Template Text not used by [place] Plan of Treatment: Future Appointments (+ 6 months) and Future Tests (+/- 45 days) The Plan of Treatment section includes future care activities for the patient from all [place] [facility]. This section includes future appointments and future orders which are active, pending or scheduled. Future Appointments This section includes appointments that were scheduled to occur 6 months from the date of the Encounter, up to a maximum of 20 appointments. The data comes from all [facility]. Appointment Date/Time Appointment Type Appointme nt Facility Name Jun 20, 2024 11:30 AM AMBULATORY - NONE [place] [facility] Jun 21, 2024 12:30 PM AMBULATORY - SURGERY [facility] Jul 11, 2024 10:00 AM AMBULATORY - SURGERY [facility] Jul 11, 2024 10:01 AM AMBULATORY - SURGERY [facility] Jul 24, 2024 11:00 AM AMBULATORY - SURGERY [facility] Jul 27, 2024 10:00 AM AMBULATORY - NONE [place] [facility] Aug 29, 2024 10:30 AM AMBULATORY - NONE [place] [facility] Aug 29, 2024 11:15 AM AMBULATORY - SURGERY [facility] Oct 23, 2024 01:00 PM AMBULATORY - MEDICINE [facility] Oct 23, 2024 01:01 PM AMBULATORY - NONE [place] [facility] Active, Pending, and Scheduled Orders This section includes a listing of several types of active, pending, and scheduled orders, including clinic medications orders, diagnostic test orders, procedure orders and consult orders; where the start date of the order is 45 days before the date of the Encounter or 45 days after the date of theEncounter. The data comes from all [facility]. 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 [employer] Control Room Operator's [facility] Lab Results: +/- 30 days [...] Reporting Lab: [facility] [address] [facility] [address] Performing Lab: [facility] [address] [facility] [address] URINE COLOR Light-Yellow NOT DEFINED SPECIFIC GRAVITY [...] Date/Time Current Smoking Status Comment Nataly strangey Jun 07, 2024 03:55 PM CURRENT SMOKER REINIER Bhat[facility] [...] Feb 21, 2024 10:15 AM VA-TOBACCO USE PLEATER HAND NO [facility] Feb 21, 2024 10:15 AM VA-TOBACCO USE MED NO [facility] Feb 21, 2024 10:15 AM VA-TOBACCO USE WI 30 MIN OF WAKEUP [facility] Feb 21, 2024 10:15 AM VA-TOBACCO USER EVERY DAY [facility] Jul 17, 2021 02:27 PM CURRENT SMOKER [facility] Jul 01, 2021 08:55 PM VA-VAAES TOBACCO U SE CURRENT NRT DECLINE [facility] Jul 01, 2021 02:41 PM CURRENT SMOKER [facility] Dec 08, 2020 08:45 [...] DIRECTIVE DISCUSSION PURNIMA ROJAS [facility] Pathology Reports: +/- 30 [...] PORT: Reporting Lab: [facility] [CLIA# [id number]] [address] [place] [address] Accession [UID]: [id number] [[id number]] Received: Jun 07, 2024@18:38 Collection sample: URINE CLEAN CATCH Collection date: Jun 07, 2024 17:30 Site/Specimen: URINE Provider: TODD CERNA Test(s) ordered: CULTURE,URINE CLEAN CATCH..... completed: Jun 10, 2024 12:19 * BACTERIOLOGY FINAL REPORT => Jun 12, 2024 11:34 TECH CODE: [id number] CULTURE RESULTS: 1. ENTEROCOCCUS FAECALIS - Quantity: [...] By: SONYA PINON [facility] [CLIA# [id number]] [address] [place] [address] SONYA GAYLE [facility] Encounter Notes: All associated encounter notes This section contains the clinical notes associated to the Encounter. Date/Time Encounter Note(s) Provider Source Jun 19, 2024 08:57 AM ADDENDUM: LOCAL TITLE: Addendum STANDARD TITLE: ADDENDUM DATE OF NOTE: JUN 19, 2024@08:57:02 ENTRY DATE: JUN 19, 2024@08:57:03 AUTHOR: KYRA VELASQUEZIGNER: URGENCY: STATUS: COMPLETED documentation is in /vivian/ KYRA VELASQUEZ M.D INTERNAL MEDICINE, [facility] Signed: 06/19/2024 08:57 Receipt Acknowledged By: 06/19/2024 09:30 /vivian/ EFRAÍN VALIENTE --- Original Document --- 06/16/24 CCC: CLINICAL TRIAGE: Patient Demographics Patient Name: GALINA LOYD Patient Primary [address]: [address] [place] [id number] Patient Primary Phone: [phone] Patient : 1945 Patient Age: 78 Call Back Number: [phone] xt [phone] Caller/Recipient Relation to Patient: Other If Other Describe Relation to Patient: shalini rodriguez Caller Name: Eileen Zapien Emergency Contact: MARIE EVERT Triage Summary Chief Complaint: fax hospice order request Patient Disposition Patient/Caregiver agrees to plan of care: Yes Nursing Plan and Disposition Other course(s) of action Generated msg to PACT/Provider Nurse Summary Nurse Summary: purpose of call: faxed hospice order request information: spoke with Eileen Zapien c# [phone] xt [phone] playing phone tag with pcp team all addendums reviewed with Eileen from today Eileen is asking for pcp to fax a hospice order to f# [phone] attention Katie Duke RN business office coordinator p# [phone] xt [phone] i asked if anyone will be in over the weekend = no, scheduled for Wednesday unless team feels he needs a visit for tomorrow call [phone] and ask for nursing service transformer repair supervisor and then give verbal order for weekend visit if indicated [facility] [address], [place] [address] Clinical Contact Center Codes Clinic/Location: V1 [facility] PHONE CCC RN IMPORTANT: This note was created by [facility] Clinical Contact Center staff. Please do not alert the staff member by adding them as a signer for future communications. Alerts are not monitored by this user. /vivian/ CASSIDY MARTINEZ RN REGISTERED NURSE Signed: 06/16/2024 16:09 Receipt Acknowledged By: * AWAITING SIGNATURE * EILEEN SHANE 06/19/2024 08:53 /vivian/ KYRA VELASQUEZ M.D INTERNAL MEDICINE, [facility] 06/19/2024 09:30 /vivian/ EFRAÍN VALIENTE for OJ MAJORLIO 06/19/2024 ADDENDUM STATUS: COMPLETED Hospice documentation faxed as requested. /vivian/ EFRAÍN VALIENTE Signed: 06/19/2024 09:30 KYRA VELASQUEZ [facility] Jun 16, 2024 04:09 PM RN PROGRESS NOTE: LOCAL TITLE: CCC: CLINICAL TRIAGE STANDARD TITLE: RN PROGRESS NOTE DATE OF NOTE: JUN 16, 2024@16:09:13 ENTRY DATE: JUN 16, 2024@16:09:13 AUTHOR: CASSIDY MARTINEZ EXP COSIGNER: URGENCY: STATUS: COMPLETED CCC: CLINICAL TRIAGE Has ADDENDA Patient Demographics Patient Name: GALINA LOYD JR Patient Primary [address]: [address] [place] [address] Patient Primary Phone: [phone] Patient : 1945 Patient Age: 78 Call Back Number: [phone] xt [phone] Caller/Recipient Relation to Patient: Other If Other Describe Relation to Patient: vna ra Caller Name: Eileen Zapien Emergency Contact: MARIE LOYD Triage Summary Chief Complaint: fax hospice order request Patient Disposition Patient/Caregiver agrees to plan of care: Yes Nursing Plan and Disposition Other course(s) of action Generated msg to PACT/Provider Nurse Summary Nurse Summary: purpose of call: faxed hospice order request information: spoke with Eileen Zapien c# [phone] xt [phone] playing phone tag with pcp team all addendums reviewed with Eileen from today Eileen is asking for pcp to fax a hospice order to f# [phone] attention Katie Duke RN business office coordinator p# [phone] xt [phone] i asked if anyone will be in over the weekend = no, scheduled for Wednesday unless team feels he needs a visit for tomorrow call [phone] and ask for nursing service transformer repair supervisor and then give verbal order for weekend visit if indicated [facility] [address] [place], [place] [id number] Clinical Contact Center Codes Clinic/Location: V1 [facility] PHONE CCC RN IMPORTANT: This note was created by [facility] Clinical Contact Center staff. Please do not alert the staff member by adding them as a signer for future communications. Alerts are not monitored by this user. /vivian/ CASSIDY MARTINEZ RN REGISTERED NURSE Signed: 06/16/2024 16:09 Receipt Acknowledged By: 06/20/2024 10:19 /vivian/ EILEEN SHANE LPN 06/19/2024 08:53 /vivian/ KYRA VELASQUEZ M.D INTERNAL MEDICINE, [facility] 06/19/2024 09:30 /vivian/ EFRAÍN VALIENTE for OJ GIL 06/19/2024 ADDENDUM STATUS: COMPLETED documentation is in /vivian/ KYRA VELASQUEZ M.D INTERNAL MEDICINE, [facility] Signed: 06/19/2024 08:57 Receipt Acknowledged By: 06/19/2024 09:30 /vivian/ EFRAÍN VALIENTE 06/19/2024 ADDENDUM STATUS: COMPLETED Hospice documentation faxed as requested. /vivian/ EFRAÍN VALIENTE Signed: 06/19/2024 09:30 CASSIDY MARTINEZ [facility]
--- OUTSIDE RECORDS SUMMARY | 2024-07-07 22:28 | XMS_ITS ---
Author Name Department [facility] [place] Organization [facility] [place] Address [address] [place] [address] Care Team Providers Care Idea Worker Name Role Phone KYRA VELASQUEZ Primary [...] Ervin's Name Patient's Relationship to Policy Ervin [facility] (WNR) MEDICARE ADVANTAGE MCR(W NR) * Aug 23, 2023 [id number] ANNALISA LOYD ITE PATIENT [facility] (WNR) MEDICARE ADVANTAGE [facility] (WNR) Aug 23, 2020 [id number] [phone] ANNALISA LOYD ITE PATIENT [facility] (WNR) MEDICARE [facility](W NR) Aug 23, 2012 [id number] ANNALISA LOYD ITE PATIENT Selected Encounter This section includes the information on record at [place] for the Encounter. Date/Time Encounter Type Encounter Description Reason Provider Source Jun 14, 2024 04:57 PM CASE MANAGEMENT TELEPHONE/ANDREWILL LIDNSAY ICD-10-CM Z02.9 Encounter for administrative examinations, unspecified FLAKITO AARON IHJannette Encounter Template Text not used by [place] Assessments - Encounter Diagnoses This section includes the primary and secondary diagnoses documented for the Encounter. Date/Time Primary/Secondary Diagnosis Diagnosis Name Provider Source Jun 14, 2024 04:57 PM PRIMARY Encounter for administrative examinations, unspecified LINH AARON SONYA GAYLE [facility] Plan of Treatment: [...] 20 appointments. The data comes from all [facility]. Appointment Date/Time Appointment Type Appointme nt Facility Name Jun 15, 2024 09:00 AM AMBULATORY - NONE [place] [facility] Jun 20, 2024 11:30 AM AMBULATORY - NONE [place] [facility] Jun 21, 2024 12:30 PM AMBULATORY - [place] [facility] Jul 11, 2024 10:00 AM AMBULATORY - SURGERY [facility] Jul 11, 2024 10:01 AM [place] [facility] Jul 24, 2024 11:00 AM AMBUL[place]ORY [place] [facility] Jul 27, 2024 10:00 AM AMBULATORY - NONE [place] [facility] Aug 29, 2024 10:30 AM AMBULATORY - NONE [place] [facility] Aug 29, 2024 11:15 AM AMBUL[place] [facility] Oct 23, 2024 01:00 PM AMBULATORY - MEDICINE [facility] Oct 23, 2024 01:01 PM AMBULATORY - NONE [place] [facility] Active, Pending, and Scheduled Orders This section [...] PM Consult Order PALLIATIVE CARE OUTPATIENT [facility] [employer] [facility] [employer] [facility] Jul 06, 2024 07:22 AM Consult Order CSP PCAFC HOME-CARE ASSESSMENT OUTPT [facility] Jul 07, 2024 02:02 PM Consult Order 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[facility] Lab Results: +/- 30 [...] HOSPITAL [address] [facility] [address] Performing Lab: [facility] [address] [facility] [address] URINE COLOR Light-Yellow NOT DEFINED SPECIFIC GRAVITY [...] Date/Time Current Smoking Status Comment Nataly ity Jun 07, 2024 03:55 PM CURRENT SMOKER [facility]IER [facility] [...] > 1 5 LESS THAN 30 YEARS [facility] Feb 21, 2024 10:15 AM VA-TOBACCO USE ADVICE [facility] Feb 21, 2024 10:15 AM VA-TOBACCO USE SCHOOL HEALTH ASSISTANT NO [facility] Feb 21, 2024 10:15 AM VA-TOBACCO USE MED NO [facility] Feb 21, 2024 10:15 AM VA-TOBACCO USE WI 30 MIN OF WAKEUP [facility] Feb 21, 2024 10:15 AM VA-TOBACCO USER EVERY DAY [facility] Jul 17, 2021 02:27 PM CURRENT SMOKER REINIER GAYEL [facility] Jul 01, 2021 08:55 PM VA-VAAES TOBACCO U SE CURRENT NRT DECLINE [facility] Jul 01, 2021 02:41 PM CURRENT SMOKER REINIER GAYLE [facility] Dec 08, 2020 08:45 PM VA-TOBACCO USER [...] DIRECTIVE DISCUSSION PURNIMA ROJAS [facility] Pathology Reports: +/- 30 [...] comes from all [place] treatment facilities. Date/Time Pathology Report Provider Source Jun 07, 2024 05:30 PM LR MICROBIOLOGY RE PORT: Reporting Lab: [facility] [CLIA# [id number]] [address] [place] [address] Accession [UID]: [id number] [[id number]] Received: Jun 07, 2024@18:38 Collection sample: URINE CLEAN CATCH Collection date: Jun 07, 2024 17:30 Site/Specimen: URINE Provider: TODD CERNA Test(s) ordered: CULTURE,URINE CLEAN CATCH..... completed: Jun 10, 2024 12:19 * BACTERIOLOGY FINAL REPORT => Jun 12, 2024 11:34 TECH CODE: [id number] CULTURE RESULTS: 1. ENTEROCOCCUS FAECALIS - Quantity: >100,000 CFU/mL Comment: VANCOMYCIN RESISTANT ENTEROCOCCUS SPECIES IDENTIFIED. MDRO NOTIFIED VIA TEAMS GROUP 06/12/24. 2. YEAST - Quantity: 50,000-99,000 CFU/mL Comment: No further workup ANTIBIOTIC SUSCEPTIBILITY TEST RESULTS: 1. ENTEROCOCCUS FAECALIS : Ampicillin.................... S Ciprofloxacin................. R Gentamicin Synergy Screen..... S LEVOFLOXACIN.................. R Linezolid..................... S Nitrofurantoin................ S Penicillin-G.................. S Vancomycin.................... R Bacteriology Remark(s): Notified Paramjit Cerna, Kirsten Chong and Arycatherine Cuenca on 06/10/24 =--=--=--=--=--=--=--=--=--=--= --=--=--=--=--=--=--=--=--=--=- -=--=--=--=--=-- Performing Laboratory: Bacteriology Report Performed By: [facility] [CLIA# [id number]] [address] [place] [address] [facility] Encounter Notes: All associated encounter notes This section contains the clinical notes associated to the Encounter. Date/Time Encounter Note(s) Provider Source Jun 14, 2024 04:58 PM CAREGIVER CERTIFIC ATE: LOCAL TITLE: Caregiver Program Support Note STANDARD TITLE: CAREGIVER CERTIFICATE DATE OF NOTE: JUN 14, 2024@16:58 ENTRY DATE: JUN 14, 2024@16:58:11 AUTHOR: CARISA AARON EXP COSIGNER: URGENCY: STATUS: COMPLETED The consult of 05/17/24 was made to both Caregiver Support PROgrams. This provider contacted the caregiver/spouse of on behalf of the Program of General Caregiver Support Services to follow-up with consult request from 05/17/24, and to introduce the Program of General Caregiver Support Services (PGCSS). Reached caregiver/spouse by phone. She interacted in cooperative manner, although she seemed a bit preoccupied. Discussed briefly her general needs and degree of burden as a caregiver. [place] cared for is age and has 100% service-connected disablements for problems including Non-Hodgkins Lymphoma, Malignant Neoplasm, and hearing. He also has problem listed areas of Abdominal Aneurysm, Delerium, Hypertension, and Alcohol Dependency. Caregiver is his spouse who lives with him. She states that he has been getting servies through a local health center, and an RN currently comes in three times a week to change the bandage on a bad sore he acquired during a stay at a rehabilitation center recently. States she has an authorization and an appointment next week for Palliative Care/Hospice. She has sent in an application for the Comprehensive and Family Caregiver Support Program recently as well. Caregiver states that she has also been concerned about 's cognitive functioning and is interested in him getting some testing to see about possible Dementia. She states that she is not very facile with the computer or internet, but that is more so and could perhaps assist her with it. Introduced to caregiver basic information about both the Comprehensive Caregiver Support program and about some of the services and benefits offered through the [facility] such as the CaregiversFIRST program, Caregiver Education Calls,Caregiver Self-Care Courses, Peer Support Mentoring, Building Better Caregivers program, REACH VA Intervention, Whole Health and Wellness Coaching, weekly support group for caregivers of veterans with Dementia, and General Telephone Support. Provider will send information, at her request, on these programs and encouraged her to review it, then could reach out to sheet writer with questions or interests in them. Caregiver seemed generally thankful for the information, and indicates that she will contact this sheet writer if he is interested in participating in any of the services offered through the [facility] once she receives the packet of information T/W will send along with a letter listing resources in the community and online as well. This sheet writer thanked caregiver for her time and dedication to the as a caregiver. Will send letter as follows along with flyers for [facility] assistance offerings. June 15, 2024 [address] Loyd [address] [place] [id number] Dear Mrs. Loyd: Good day to you. I appreciated the opportunity to speak with you by phone on yesterday. This follow-up letter is to thank you for your interest in the General Caregiver Support. The goal of the program is to assist caregivers of veterans in connecting to resources and services through the Department of [place]'s Affairs and in the community which can assist you in taking care of yourself and the you assist to the highest degree possible. I want to encourage you to please take some time to review information available about support for caregivers which you will find enclosed. Then, if you are interested in knowing more about, or participating in any of these programs, please contact me and I would be happy to direct you to information and/or make a referral to them on your behalf. We in Caregiver Support agree that the role of being a caregiver for a is a very allan and fulfilling personal calling. Your dedication and giving quality as a caregiver is noticed and appreciated. We want you to be assured that we are available to you and your to provide assistance as you need it As a part of its special mission to serve disabled veterans and their families to improve the quality of their lives, [place] strives to provide resources, support, and assistance to their caregivers. If you would like to receive more information, visit: https://www.caregiver.va.go v/index.asp or for benefits information, www.ebenefits.va.gov, Please also take some time to review the enclosed informational sheets for resources which I have enclosed, which also contain some resources commonly helpful to caregivers. The wellness of the and yourself are important to us! I would encourage you to continue to follow-up with a primary care physician with any of your medical concerns. You may call directly to Telephone Triage at , ext. [phone] with immediate medical concerns or to schedule a Primary Care appointment for the , and ask a [place] Primary Care Provider if a referral to specialty clinics such as the TBI/Polytrauma clinic, Pain Management, Neurology for headaches, or Physical Therapy, should be considered for any issues at the VA or care in the community. You can also locate medical records or contact providers online through the secure messaging feature available with the [employer].va.gov website. I will include information on how to register. If you wish to pursue an immediate visit for Mental Health Care for the , it is available by walk-in 9am to 3pm daily to the [facility] phone , ext. [phone] or [phone], and also available at the [facility] as well. Please also call the [place]'s Crisis Hotline at any time you may feel a need for immediate, confidential support for acute mental health needs, at 380, and select option #1 to speak to a exhibit display representative specializing in veterans. You may also contact community resources as needed, such as the [facility] [place] on Aging, at [address], [place] [address] at , or the [facility] [place] [facility] . For Adult Day services, there [facility], attn. Heather Harris or [facility] [place] ([facility]), attn. Feliciano Pan, and [facility] in [place], attn. Silvia Pandya, . You may benefit from contacting the 15/03 Helpline which serves people with memory loss, caregivers, health child care leader and the public, providing information and support toll-free at [phone] through the Alzheimer's Association, [place] Chapter, , www.alz.org. which assists with managing issues of cognitive decline associated with Dementia and Alzheimers. Other helpful resources are the National [place] on Aging, Alzheimer's Disease Education and Resource Center: , www.pernell.nih.gov/alzheimers, and the Administration on Aging and Community Living, www.acl.gov/help/online-too ki-cij-pwaheofyw. There are also good resources at The Positive Approach to Care, at http://Game Trust, , http://www.stilmee.org/, the [place] Office of Rural Health Resource Center, a helpful [place] caregiver video series at www.[facility] children[facility] hospital[facility].ms.gov/vets /resources.asp#dem or www.b[facility] children's hospitalhealth.ms.gov/vets /caregivers-snevxk48.asp, and the [facility] Caregiver Training Videos,https://www.[facility] hospitalheal .org/dementia/caregiver-e ducation-videos. I hope that you will consider participating in programs I am sending information about such as CaregiversFIRST and/or the REACH VA program, or our Caregivers Support Group for veterans with Dementia, or you may contact me for more information about them. There are also online sites outside [place] which have a large variety of self-help for caregivers, such as: Psycharmor, https://psycharmor.org/care givers/ and caregiver coaching and resources at https://Aldagenheroes.org/ and caregiver coaching and resources through the Eileen Dole Foundation at https://mile bluff medical centeroes.org/ and the [facility] for Caregivers at www.[facility].org/g kathryn/- caregivers. There is also The Caregiver Action Network, at: www.caregiveraction.org, www.operation familycaregiver.org. , the [facility] Network at www.[facility].org/get-help/ rani- families/cksqlpno-krg-xplfh ans/pkfcomcc-dngkdov-lyjvqx jonh-network.html, the Family Caregiver [place], at: www.familycaregivercouncil. com, National Antlers for Caregiving https://www.caregiving.org/ , Caring.com at www.caring.com/caregivers/ and [place] Geriatric Scholars at www.gerischolars.org/view.p hp?id=41, or www.va.gov/GERIATRICS/, and [facility] https://adrccares.org/resou rces. For Multiple Sclerosis caregiver support, there are organizations such as: the Multiple Sclerosis Foundation, at , and https://msfocus.org/, the National Multiple Sclerosis Society, at , and , the Multiple Sclerosis Association of [place], at and www.weatherization technician@msassociation .org and the Family Caregiver Antlers [place] Caregiver Resource Guide, available at : www.caregiver.org/resource/ jzhxaozg-kebyceswk-bt-careg pfce-fuskojsn-qclrz/ Please feel free to utilize General Caregiver Support Services as a resource in establishing caregiving supports, links to community programs and resources, and dealing with VA related issues. We are available at , ext. [phone] and [phone]. We appreciate being able to be of assistance. I wish the best fortunes for you and your family in your self care! Carisa CHAU General Caregiver Global Coordinator /vivian/ CARISA CHAU Signed: 06/15/2024 10:21 CARISA AARON [facility]
--- OUTSIDE RECORDS SUMMARY | 2024-07-07 22:28 | XMS_ITS | Encounter Summary ---
Author Name [facility] of [facility] [place] [facility] [place] Organization [place] Address [address] [place] [address] Care Team Providers Care Senior Adults Director Name Role Phone KYRA VELASQUEZ Primary [...] Ervin's Name Patient's Relationship to Policy Ervin [facility] (WNR) MEDICARE ADVANTAGE [facility](W NR) * Aug 23, 2023 [id number] ANNALISA LOYD ITE PATIENT [facility] MCR (WNR) MEDICARE ADVANTAGE MCR (WNR) Aug 23, 2020 [id number] [phone] ANNALISA LOYD ITE PATIENT [facility] (WNR) MEDICARE ADVANTAGE [facility](W NR) Aug 23, 2012 [id number] ANNALISA LOYD PATIENT Selected Encounter This section includes the information on record at [place] for the Encounter. Date/Time Encounter Type Encounter Description Reason Provider Source Jun 13, 2024 10:01 AM FOAM DRG <=16 SQ IN W/BORDER WOUND TREAT & OSTOMY CARE ICD-10-CM L89.43 Pressr ulcer of contig site of back, buttock and hip, stg 3 CECILIO QUINTERO AM IHJannette Encounter Template Text not used by [place] Assessments - Encounter Diagnoses This section includes the primary and secondary diagnoses documented for the Encounter. Date/Time Primary/Secondary Diagnosis Diagnosis Name Provider Source Jun 13, 2024 10:25 AM PRIMARY Pressr ulcer of contig site of back, buttock and hip, stg 3 GRACIE QUINTERO SONYA GAYLE [facility] Jun 13, 2024 10:25 AM SECONDARY Pressure ulcer of other site, stage 3 GRACIE QUINTERO SONYA GAYLE [facility] Plan of Treatment: [...] SURGERY [place] [facility] Jul 24, 2024 11:00 AM AMBULATORY - [place] [facility] Jul 27, 2024 10:00 AM AMBULATORY - NONE [place] [facility] Aug 29, 2024 10:30 AM AMBULATORY - NONE [place] [facility] [facility] Aug 29, 2024 11:15 AM AMBULATORY - [place] [facility] Oct 23, 2024 01:00 PM AMBULATORY - MEDICINE [facility] Oct 23, 2024 01:01 PM AMBULATORY [...] PM Consult Order PALLIATIVE CARE OUTPATIENT [facility] Jul 06, 2024 07:22 AM Consult Order CSP PCAFC HOME-CARE ASSESSMENT OUTPT [facility] Jul 07, 2024 02:02 PM Consult Order 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 Lab Results: +/- 30 days of [...] MEDICAL [facility] [address] [facility] [address] Performing Lab: [facility] [address] [facility] [facility] [address] URINE COLOR Light-Yellow NOT DEFINED SPECIFIC GRAVITY [...] 2024 03:55 PM CURRENT SMOKER REINIER GAYLE [facility] [...] > 1 5 LESS THAN 30 YEARS [facility] Feb 21, 2024 10:15 AM VA-TOBACCO USE ADVICE [facility] Feb 21, 2024 10:15 AM VA-TOBACCO USE COMMUNITY RELATIONS REP NO [facility] Feb 21, 2024 10:15 AM VA-TOBACCO USE MED NO [facility] Feb 21, 2024 10:15 AM VA-TOBACCO USE WI 30 MIN OF WAKEUP [facility] Feb 21, 2024 10:15 AM VA-TOBACCO USER EVERY DAY [facility] Jul 17, 2021 02:27 PM CURRENT SMOKER REINIER Bhatia [facility] Jul 01, 2021 08:55 [...] Nov 18, 2017 ADVANCE DIRECTIVE REBECCARADHA Weiner [facility] Jul 08, 2017 ADVANCE DIRECTIVE DISCUSSION PURNIMA ROJAS [facility] Pathology Reports: +/- 30 [...] PORT: Reporting Lab: [facility] [CLIA# [id number]] [address] [place] [address] Accession [UID]: [id number] [[id number]] Received: Jun 07, 2024@18:38 Collection sample: URINE CLEAN CATCH Collection date: Jun 07, 2024 17:30 Site/Specimen: URINE Provider: TODD VALVERDE Test(s) ordered: CULTURE,URINE CLEAN CATCH..... completed: Jun 10, 2024 12:19 * BACTERIOLOGY FINAL REPORT => Jun 12, 2024 11:34 TECH CODE: [id number] CULTURE RESULTS: 1. ENTEROCOCCUS FAECALIS - Quantity: [...] Report Performed By: [facility] [CLIA# [id number]] [address] [place] [address] [facility] Encounter Notes: All associated encounter notes This section contains the clinical notes associated to the Encounter. Date/Time Encounter Note(s) Provider Source Jun 13, 2024 09:59 AM WOUND CARE NOTE: LOCAL TITLE: Wound Care Note STANDARD TITLE: WOUND CARE NOTE DATE OF NOTE: JUN 13, 2024@09:59 ENTRY DATE: JUN 13, 2024@10:00 AUTHOR: DANIELLE QUINTERO EXP COSIGNER: URGENCY: STATUS: [...] Injury due to chemical exposure (SNOMED CT [id number]) 69 in [175.3 cm] (04/06/2024 12:44) 118 lb [53.52 kg] (04/06/2024 12:44) BODY MASS INDEX - APR 06, 2024@12:44:02 17.5 NARRATIVE: 78 yo male with multiple medical problems including cva 2020, sdh, history of seizures, nephrolithiasis, h/o bl ureteral stents s/p removal, htn, tobacco use, follicular lymphoma, AAA, thoracic aortic aneurysm, etoh dependence in remission seen via out of [facility] for assessment of pressure injuries to LEFT shoulder and LEFT buttock. Vet has continued with use of MH gel and mepilex foam border cover dressings, with VNA assistance 3x/week. His assist with PRN changes on non-VNA days. Wounds progessing nicely with shallower healthier appearing owund beds, no remaining non-viable tissues. Periwound areas mildly macerated, thus will d/c use of MH gel. Small area of intact blanchable erythema overlying the coccyx observed, covered with mepilex foam border dressing. LOCATION: posterior LEFT shoulder, Healing Stage 3 PI WOUND BED TISSUES: 100% pink moist, shallow. DIMENSIONS: 4.0 x 2.0cm irregular shape UNDERMINING/TUNNELING: none observed EDGES: attached, viable EXUDATE: scant serosang ODOR: none reported PERIWOUND SKIN: intact scar tissue, local erythema, non-streaking. SOI: none observed PAIN: none reported. LOCATION: Left ischium, Stage 3 PI. WOUND BED TISSUES: Moist red granulation DIMENSIONS: 1.0 x 0.5cm shallow UNDERMINING/TUNNELING: none observed EDGES: rolled, ragged, detached EXUDATE: light serosang ODOR: none reported. PERIWOUND SKIN: blanchable local erythema SOI: none observed PAIN: none reported by Vet. WOUND CARE PROCEDURE: -Wounds cleansed with NS and gauze, measured and assessed as above. -Both wounds measured and assessed as above, dressed with new mepilex foam border 4x4. D/C'ng use of MH gel going forward as wounds are now shallow and with healthy wound beds with adequate moisture balance. RECS/PLAN: -Continue with current POC, w/ VNA assistance for wound care and dressing changes as outlined above. Note D/C'd use of medihoney gel. Supplies provided/refilled. -RTC x1 month for f/u. Encouraged to call clinic with any questions or concerns or to report back to ED if condition worsens or if SOI re-develop at any point. TIME SPENT ON THIS ENCOUNTER: 45 min /vivian/ DANIELLE SOMERSN, RN, CWON Signed: 06/13/2024 10:26 DANIELLE QUINTERO [facility]
--- OUTSIDE RECORDS SUMMARY | 2024-07-07 22:28 | XMS_ITS ---
Author Name Department [place] Organization [place] Address [address] [place] [address] Care Team Providers Care Bunch Maker Name Role Phone KYRA VELASQUEZ Primary [...] Ervin's Name Patient's Relationship to Policy Ervin [facility] (WNR) MEDICARE [facility](W NR) * Aug 23, 2023 [id number] ANNALISA LOYD ITE PATIENT [facility] MCR (WNR) MEDICARE ADVANTAGE [facility] (WNR) Aug 23, 2020 [id number] [phone] ANNALISA LOYD ITE PATIENT [facility] (WNR) MEDICARE ADVANTAGE [facility](W NR) Aug 23, 2012 [id number] ANNALISA LOYD ITJannette PATIENT Selected Encounter This section includes the information on record at [place] for the Encounter. Date/Time Encounter Type Encounter Description Reason Pro vider Source Jun 12, 2024 10:50 AM Outpatient Encounter ADMIN PAT ACTIVTIES (MASNONCT) [...] AM AM[place]ORY [place] [facility] Jun 15, 2024 09:00 AM AMBULATORY - NONE [place] [facility] Jun 20, 2024 11:30 AM AMBULATORY - NONE [place] [facility] Jun 21, 2024 12:30 PM [place] [facility] Jul 11, 2024 10:00 AM AMBULATORY - SURGERY [facility] Jul 11, 2024 10:01 AM [place] [facility] Jul 24, 2024 11:00 AM [place] [facility] Jul 27, 2024 10:00 AM AMBULATORY - NONE [place] [facility] Aug 29, 2024 10:30 AM AMBULATORY - NONE [place] [facility] Aug 29, 2024 11:15 AM [place] [facility] Oct 23, 2024 01:00 PM AMBULATORY - MEDICINE [facility] Oct 23, 2024 01:01 PM AMBULATORY - NONE [place] [facility] Active, Pending, and Scheduled Orders This section includes a listing of several types of active, pending, and scheduled orders, including clinic medications orders, diagnostic test orders, procedure orders and consult orders; where the start date of the order is 45 days before the date of the Encounter or 45 days after the date of theEncounter. The data comes from all [facility]. Test Date/Time Test Type Test Details Facility Name May 03, 2024 12:00 AM Laboratory - Chemistry Order URORISK DIAGNOSTIC PROFILE(Q) 24H RENAL STONE KIT 24H URINE SP [facility] Jun 28, 2024 12:58 PM Consult Order PALLIATIVE CARE OUTPATIENT [facility] Rewind Operator's [facility] Jul 06, 2024 07:22 AM Consult Order CSP PCAFC HOME-CARE ASSESSMENT OUTPT Cons Rewind Operator's [facility] Jul 07, 2024 02:02 PM Consult Order OCCUPATION AL THERAPY OUTPATIENT Cons Rewind Operator's [facility] Lab Results: +/- 30 [...] Reporting Lab: [facility] [address] [facility] [address] Performing Lab: [facility] [address] [facility] [address] URINE COLOR Light-Yellow NOT DEFINED SPECIFIC GRAVITY [...] 2024 03:55 PM CURRENT SMOKER REINIER [facility] Tobacco Use History This section includes [...] Feb 21, 2024 10:15 AM VA-TOBACCO USE PRODUCT DESIGN ENGINEER NO [facility] Feb 21, 2024 10:15 AM VA-TOBACCO USE MED NO [facility] Feb 21, 2024 10:15 AM VA-TOBACCO USE WI 30 MIN OF WAKEUP [facility] Feb 21, 2024 10:15 AM VA-TOBACCO USER EVERY DAY [facility] Jul 17, 2021 02:27 PM CURRENT SMOKER REINIER Bhatia [facility] Jul 01, 2021 08:55 PM VA-VAAES TOBACCO U SE CURRENT NRT DECLINE [facility] Jul 01, 2021 02:41 PM CURRENT SMOKER REINIER [facility] Dec 08, 2020 08:45 PM VA-TOBACCO [...] the Encounter. The data comes from all [facility] facilities. Date/Time Pathology Report Provider Source Jun 07, 2024 05:30 PM LR MICROBIOLOGY RE PORT: Reporting Lab: [facility] [CLIA# [id number]] [address] [place] [address] Accession [UID]: [id number] [[id number]] Received: Jun 07, 2024@18:38 Collection sample: URINE CLEAN CATCH Collection date: Jun 07, 2024 17:30 Site/Specimen: URINE Provider: TODD CERNA Test(s) ordered: CULTURE,URINE CLEAN CATCH..... completed: Jun 10, 2024 12:19 * BACTERIOLOGY FINAL REPORT => Jun 12, 2024 11:34 TECH CODE: [id number] CULTURE RESULTS: 1. ENTEROCOCCUS FAECALIS - Quantity: [...] Report Performed By: [facility] [CLIA# [id number]] [address] [place] [place] [address] [facility] Encounter Notes: All associated encounter notes This section contains the clinical notes associated to the Encounter. Date/Time Encounter Note(s) Provider Source Jun 05, 2024 10:50 AM NONVA NOTE: LOCAL TITLE: NonVA Medical Records STANDARD TITLE: NONVA NOTE DATE OF NOTE: JUN 05, 2024@10:50 ENTRY DATE: JUN 12, 2024@10:51:08 AUTHOR: NAINA TORO COSIGNER: URGENCY: STATUS: COMPLETED NONVA 06/05/2024 ADD ON [facility] // Naina Toro MRT Signed: 06/12/2024 10:52 Receipt Acknowledged By: * AWAITING SIGNATURE * KYRA VELASQUEZ TAMMY DENEGE ANN [facility]
--- OUTSIDE RECORDS SUMMARY | 2024-07-07 22:29 | XMS_ITS | Encounter Summary ---
Author Name Department of Vetera Affairs [place] Organization Department of [place] Address [address] [place] [address] Care Team Providers Care Supervisor Case Loading Name Role Phone KYRA VELASQUEZ Primary Care [...] Ervin [facility] (WNR) MEDICARE ADVANTAGE MCR(W NR) * Aug 23, 2023 [id number] ANNALISA LOYD ITE PATIENT [facility] (WNR) MEDICARE ADVANTAGE [facility] (WNR) Aug 23, 2020 [id number] [phone] ANNALISA LOYD ITE PATIENT [facility] (WNR) MEDICARE [facility](W NR) Aug 23, 2012 [id number] ANNALISA LOYD ITE PATIENT Selected Encounter This section includes the information on record at [place] for the Encounter. Date/Time Encounter Type Encounter Description Reason Pro vider Source May 29, 2024 12:00 PM Outpatient Encounter COMMUNITY CARE CONSULT IHE Encounter Template Text not used by VA Plan of Treatment: Future Appointments (+ 6 months) and Future Tests (+/- 45 days) The Plan of Treatment section includes future care activities for the patient from all [place] [facility]. This section includes future appointments and future orders which are active, pending or scheduled. Future Appointments This section includes appointments that were scheduled to occur 6 months from the date of the Encounter, up to a maximum of 20 appointments. The data comes from all [facility]. Appointment Date/Time Appointment Type Appointme nt Facility Name Jun 07, 2024 01:00 PM [place]ORY [place] [facility] Jun 07, 2024 03:55 PM AMBULATORY - MEDICINE [facility] Jannette [facility] Jun 13, 2024 10:00 AM AMBULATORY - SURGERY [facility] Jun 13, 2024 10:01 AM [place] [facility] Jun 15, 2024 09:00 AM AMBULATORY - NONE [place] [facility] Jun 20, 2024 [...] RIVER T [facility] Jul 27, 2024 [...] [place] JOELLE T [facility] Active, Pending, and [...] KIT 24H URINE SP [facility] Jun 28, 2024 12:58 PM Consult Order PALLIATIVE CARE OUTPATIENT Cons Messenger Copy's [facility] Jul 06, 2024 07:22 AM Consult Order CSP PCAFC HOME-CARE ASSESSMENT OUTPT Cons Messenger Copy's [facility] Jul 07, 2024 02:02 PM Consult Order OCCUPATION AL THERAPY OUTPATIENT Cons Messenger Copy's [facility] Lab Results: +/- 30 days [...] Range Comment Jun 07, 2024 05:30 PM [facility] URINALYSIS W/REFLEX TO CULTURE Specimen Type: URINE No comment entered. Ordering Provider: KAREEM VALVERDE Report Released Date/Time: Jun 07, 2024 04:57 PM Reporting Lab: [facility] [address] [address] [address] Performing Lab: [facility] [address] [address] URINE COLOR Light-Yellow NOT DEFINED SPECIFIC GRAVITY [...] MICROSCOPIC-iQ Completed May 04, 2024 10:32 AM [facility] UREA NITROGEN Specimen Type: PLASMA Comment: , Tests performed on CourseWeaver SN:[id number] (549) Ordering Provider: AUBREY FAM Report Released Date/Time: Nov 15, 2023 11:30 AM Reporting Lab: [facility] [address] [address] Performing Lab: [facility] [address] [address] UREA NITROGEN 10 mg/dL 03-16May 04, 2024 10:32 AM [facility] CREATININE WITH eGFR PANEL Specimen Type: PLASMA Comment: , Tests performed on [employer]Runner Lopes SN:[id number] (117) Ordering Provider: AUBREY FAM Report Released Date/Time: Nov 15, 2023 11:30 AM Reporting Lab: [facility] [address] [address] Performing Lab: [facility] [address] [address] CREATININE 0.91 mg/dL 0.50-1.50 eGFR(CKD-EPI 2020) 86 [...] Feb 21, 2024 10:15 AM VA-TOBACCO USE INSTALLATION HELPER NO [facility] Feb 21, 2024 10:15 AM VA-TOBACCO USE MED NO [facility] Feb 21, 2024 10:15 AM VA-TOBACCO USE WI 30 MIN OF WAKEUP [facility] Feb 21, 2024 10:15 AM VA-TOBACCO USER EVERY DAY [facility] Jul 17, 2021 02:27 PM CURRENT SMOKER WHIT Jannette [facility] Jul 01, 2021 08:55 PM VA-VAAES TOBACCO U SE CURRENT NRT DECLINE [facility] Jul 01, 2021 02:41 PM CURRENT SMOKER REINIER [facility] Dec 08, 2020 08:45 PM VA-TOBACCO [...] ABDOMEN AND PE LVIS: GALINA LOYD CARISA [id number] -1945 M Exm Date: MAY 04, 2024@12:30 Req Phys: VIMAL FAM Pat Loc: [facility] VASCULAR 15 M3RH (Req'g Lo Img Loc: CT SCAN (OOS) Service: [place] [address] (Case [id number] COMPLETE) CTA ABDOMEN AND PELVIS (CT Detailed) CPT:48301 Contrast Media : Non-ionic Iodinated Reason for [...] 05, 2024 Date Verified: MAY 05, 2024 Structures Engineer E-Sig:/ES/NÉSTOR PASCUAL Report: CTA ABDOMEN AND PELVIS [...] REQUIRED Primary Interpreting Staff: NÉSTOR PASCUAL, RADIOLOGIST (Structures Engineer) /NÉSTOR CONNER [facility] Pathology Reports: +/- 30 [...] PM LR MICROBIOLOGY RE PORT: Reporting Lab: [facility] [CLIA# [id number]] [address] [place] [address] Accession [UID]: [id number] [[id number]] Received: Jun 07, 2024@18:38 Collection sample: URINE CLEAN CATCH Collection date: Jun 07, 2024 17:30 Site/Specimen: URINE Provider: TODD VALVERDE Test(s) ordered: CULTURE,URINE CLEAN CATCH..... completed: Jun 10, 2024 12:19 * BACTERIOLOGY FINAL REPORT => Jun 12, 2024 11:34 TECH CODE: [id number] CULTURE RESULTS: 1. ENTEROCOCCUS FAECALIS - Quantity: [...] Report Performed By: [facility] [CLIA# [id number]] [address] [place] [address] [facility] Encounter Notes: All associated encounter notes This section contains the clinical notes associated to the Encounter. Date/Time Encounter Note(s) Provider Source May 29, 2024 12:00 PM NONVA CONSULT: LOCAL TITLE: COMMUNITY CARE CONSULT RESULT NOTE STANDARD TITLE: NONVA CONSULT DATE OF NOTE: MAY 29, 2024@12:00 ENTRY DATE: JUN 23, 2024@05:32:59 AUTHOR: AGGIE JERONIMO EXP COSIGNER: URGENCY: STATUS: COMPLETED VistA Imaging - Scanned Document COMMUNITY CARE-ORTHOPEDICS GENERAL Cons Consult # [id number] Date of Service (Procedure/Event): 05/29/2024 Note Title: COMMUNITY CARE CONSULT RESULT NOTE Origin: NON-VA Type: PROGRESS NOTE Specialty: ORTHOPEDICS Procedure: VISITCons Consult # [id number] Date of Service (Procedure/Event): 05/29/2024 Note Title: COMMUNITY CARE CONSULT RESULT NOTE Origin: NON-VA Type: PROGRESS NOTE Specialty: ORTHOPEDICS Procedure: VISIT-CLOSED LEFT HIP FRACTURE [facility] SCANNED DOCUMENT SIGNATURE NOT REQUIRED Electronically Filed: 06/23/2024 by: AGGIE Gandara [facility]
--- OUTSIDE RECORDS SUMMARY | 2024-07-07 22:29 | XMS_ITS | Encounter Summary ---
Author Name [place] Address [address] [place] [address] Care Team Providers Care Skiver Machine Name Role Phone RON KYRA Primary [...] Patient's Relationship to Policy Ervin [facility] (WNR) MEDICARE [facility](W NR) * Aug 23, 2023 [id number] [phone] ANNALISA LOYD ITE PATIENT [facility] (WNR) MEDICARE ADVANTAGE [facility] (WNR) Aug 23, 2020 [id number] [phone] ANNALISA LOYD ITE PATIENT [facility] (WNR) MEDICARE ADVANTAGE [facility](W NR) Aug 23, 2012 [id number] ANNALISA LOYD PATIENT Selected Encounter This section includes the information on record at [place] for the Encounter. Date/Time Encounter Type Encounter Description Reason Provider Source Jun 22, 2024 08:35 AM HC PRO PHONE CALL 5-10 MIN TELEPHONE/ANDREWILL LINDSAY ICD-10-CM Z02.9 Encounter for administrative examinations, unspecified RYANNE PENA JESÚSJannette Encounter Template Text not used by [place] Assessments - Encounter Diagnoses This section includes the primary and secondary diagnoses documented for the Encounter. Date/Time Primary/Secondary Diagnosis Diagnosis Name Provider Source Jun 22, 2024 08:35 AM PRIMARY Encounter for administrative examinations, unspecified RYANNE PENA [facility] Plan of Treatment: Future Appointments (+ 6 months) and Future Tests (+/- 45 days) The Plan of Treatment section includes future care activities for the patient from all [place] [facility]. This section includes future appointments and future orders which are active, pending or scheduled. Future Appointments This section includes appointments that were scheduled to occur 6 months from the date of the Encounter, up to a maximum of 20 appointments. The data comes from all [facility]. Appointment Date/Time Appointment Type Appointme nt Facility Name Jul 11, 2024 10:00 AM AMBULATORY - SURGERY [facility] Jul 11, 2024 10:01 AM AMBULATORY - SURGERY [facility] Jul 24, 2024 11:00 AM AMBULATORY - SURGERY [facility] Jul 27, 2024 10:00 AM AMBULATORY - NONE [place] [facility] Aug 29, 2024 10:30 AM AMBULATORY - NONE [facility] JOELLE [facility] Aug 29, 2024 11:15 AM AMBULATORY - SURGERY [facility] Oct 23, 2024 01:00 PM AMBULATORY - MEDICINE [facility] Oct 23, 2024 01:01 PM AMBULATORY - NONE [facility] JOELLE [facility] Active, Pending, and [...] of theEncounter. The data comes from all [facility]. Test Date/Time Test Type Test Details Facility Name Jun 28, 2024 12:58 PM Consult Order PALLIATIVE CARE OUTPATIENT Cons Noc Technician's Choice [facility] Jul 06, 2024 07:22 AM Consult Order CSP PCAFC HOME-CARE ASSESSMENT OUTPT Cons Noc Technician's Choice [facility] Jul 07, 2024 02:02 PM Consult Order OCCUPATION AL THERAPY OUTPATIENT Cons Noc Technician's [facility] Lab Results: +/- 30 days [...] Lab: [facility] [address] [address] Performing Lab: [facility] [address] [facility] [address] URINE COLOR Light-Yellow NOT DEFINED SPECIFIC GRAVITY [...] Feb 21, 2024 10:15 AM VA-TOBACCO USE OPHTHALMIC TECHNICIAN APPRENTICE NO [facility] Feb 21, [...] Reporting Lab: [facility] [CLIA# [id number]] [address] [place] [address] Accession [UID]: [id number] [[id number]] Received: Jun 07, 2024@18:38 Collection sample: URINE CLEAN CATCH Collection date: Jun 07, 2024 17:30 Site/Specimen: URINE Provider: TODD CERNA Test(s) ordered: CULTURE,URINE CLEAN CATCH..... completed: Jun 10, 2024 12:19 * BACTERIOLOGY FINAL REPORT => Jun 12, 2024 11:34 TECH CODE: [id number] CULTURE RESULTS: 1. ENTEROCOCCUS FAECALIS - Quantity: >100,000 CFU/mL Comment: VANCOMYCIN RESISTANT ENTEROCOCCUS SPECIES IDENTIFIED. MDRO NOTIFIED VIA TEAMS GROUP 06/12/24. 2. YEAST - Quantity: 50,000-99,000 CFU/mL Comment: No further workup ANTIBIOTIC SUSCEPTIBILITY TEST RESULTS: 1. ENTEROCOCCUS FAECALIS : Ampicillin.................... S Ciprofloxacin................. R Gentamicin Synergy Screen..... S LEVOFLOXACIN.................. R Linezolid..................... S Nitrofurantoin................ S Penicillin-G.................. S Vancomycin.................... R Bacteriology Remark(s): Notified Kirsten Dunn on 06/10/24 =--=--=--=--=--=--=--=--=--=--= --=--=--=--=--=--=--=--=--=--=- -=--=--=--=--=-- Performing Laboratory: Bacteriology Report Performed By: SONYA GAYLE [facility] [CLIA# [id number]] [address] [place] [address] [facility] Encounter Notes: All associated encounter notes This section contains the clinical notes associated to the Encounter. Date/Time Encounter Note(s) Provider Source Jun 22, 2024 08:35 AM CAREGIVER CERTIFIC ATE: LOCAL TITLE: CSP TELEPHONE NOTE STANDARD TITLE: CAREGIVER CERTIFICATE DATE OF NOTE: JUN 22, 2024@08:35 ENTRY DATE: JUN 22, 2024@08:35:28 AUTHOR: RYANNE PENA EXP COSIGNER: URGENCY: STATUS: COMPLETED Spoke with 's daughter this morning as both [place] and caregiver were sleeping. She reports that they were at [facility] yesterday for giraldo placement as [place] continues to have difficulty voiding. Hospice is now involved but daughter feels that although [place] has terminal illness he is not imminently dying and that they have plans over the next months. I introduced myself and discussed the application process. They also have my direct contact information and will contact me with any questions or concerns. We will continue to process application and expedite as much as possible due to 's hospice status. /es/ Ryanne TOBAR,RN PCAFC Exhaust And Muffler Repairer Signed: 06/22/2024 08:41 Receipt Acknowledged By: 06/26/2024 09:00 /es/ Lilliam Boothe ASTRONOMY PROFESSOR Caregiver Support Mail Teller 06/27/2024 06:58 /es/ FADI REBOLLEDO RN BSN FADI REBOLLEDO CLASSIFICATION AND TREATMENT DIRECTOR 06/22/2024 08:50 /es/ MODE Holguin [facility], FPOW Advocate 06/22/2024 11:14 /es/ JAIME MORROW 06/26/2024 15:09 /es/ AMADOU Elliott, RN Registered Nurse RYANNE PENA [facility]
--- OUTSIDE RECORDS SUMMARY | 2024-07-07 22:29 | XMS_ITS | Encounter Summary ---
Author Name [place] Organization [place] Address [address] [place] [address] Care Team Providers Care Cultural Centre Manager Name Role Phone KYRA VELASQUEZ Primary [...] to Policy Ervin [facility] (WNR) MEDICARE ADVANTAGE MCR(W NR) * Aug 23, 2023 [id number] ANNALISA LOYD ITE PATIENT [facility] (WNR) MEDICARE ADVANTAGE [facility] (WNR) Aug 23, 2020 [id number] [phone] ANNALISA LOYD ITE PATIENT [facility] (WNR) MEDICARE [facility](W NR) Aug 23, 2012 [id number] ANNALISA LOYD ITE PATIENT Selected Encounter This section includes the information on record at [place] for the Encounter. Date/Time Encounter Type Encounter Description Reason Pro vider Source Jun 14, 2024 12:00 PM Outpatient Encounter COMMUNITY CARE CONSULT IHE Encounter Template Text not used by VA Plan of Treatment: Future Appointments (+ 6 months) and Future Tests (+/- 45 days) The Plan of Treatment section includes future care activities for the patient from all [place] [facility]. This section includes future appointments and future orders which are active, pending or scheduled. Future Appointments This section includes appointments that were scheduled to occur 6 months from the date of the Encounter, up to a maximum of 20 appointments. The data comes from all [facility]. Appointment Date/Time Appointment Type Appointme nt Facility Name Jun 15, 2024 09:00 AM AMBULATORY - NONE [place] [facility] Jun 20, 2024 11:30 AM AMBULATORY - NONE [place] [facility] Jun 21, 2024 12:30 PM AMBULATORY - SURGERY [facility] Jul 11, 2024 10:00 AM AMBULATORY - SURGERY [facility] Jul 11, 2024 10:01 AM AM[place]UL[place] - [place] [facility] Jul 24, 2024 11:00 AM AMBULATORY - [place] [facility] Jul 27, 2024 10:00 AM AMBULATORY - NONE [place] [facility] Aug 29, 2024 10:30 AM AMBULATORY - NONE [place] [facility] Aug 29, 2024 11:15 AM AMBULATORY - [place] [facility] Oct 23, 2024 01:00 PM AMBULATORY - MEDICINE [facility] Oct 23, 2024 01:01 PM AMBULATORY - NONE [place] [facility] [...] of theEncounter. The data comes from all [facility]. Test Date/Time Test Type Test Details Facility Name May 03, 2024 12:00 AM Laboratory - Chemistry Order URORISK DIAGNOSTIC PROFILE(Q) 24H RENAL STONE KIT 24H URINE SP [facility] Jun 28, 2024 12:58 PM Consult Order PALLIATIVE CARE OUTPATIENT Cons Port Engineer's Choice [facility] Jul 06, 2024 07:22 AM Consult Order CSP PCAFC HOME-CARE ASSESSMENT OUTPT Cons Port Engineer's Choice [facility] Jul 07, 2024 02:02 PM Consult Order OCCUPATION AL THERAPY OUTPATIENT Cons Port Engineer's Choice [facility] Lab Results: +/- [...] Reporting Lab: [facility] [address] [address] Performing Lab: [facility] [address] [address] [address] URINE COLOR Light-Yellow NOT DEFINED SPECIFIC GRAVITY [...] 2024 03:55 PM CURRENT SMOKER WHIT Jannette [facility] Tobacco Use History This [...] Feb 21, 2024 10:15 AM VA-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 completed: Jun 10, 2024 12:19 * BACTERIOLOGY FINAL REPORT => Jun 12, 2024 11:34 TECH CODE: [id number] CULTURE RESULTS: 1. ENTEROCOCCUS FAECALIS - Quantity: [...] By: SONYA PINON [facility] [CLIA# [id number]] [address] [place] [address] [facility] Encounter Notes: All associated encounter notes This section contains the clinical notes associated to the Encounter. Date/Time Encounter Note(s) Provider Source Jun 14, 2024 12:00 PM NONVA CONSULT: LOCAL TITLE: COMMUNITY CARE CONSULT RESULT NOTE STANDARD TITLE: NONVA CONSULT DATE OF NOTE: JUN 14, 2024@12:00 ENTRY DATE: JUN 23, 2024@09:52:51 AUTHOR: NIOCLE CASTELLON EXP COSIGNER: URGENCY: STATUS: COMPLETED VistA Imaging - Scanned Document Consult / Referral: May 18 (c) COMMUNITY CARE-CASE MANAGEMENT OUTPATIENT Cons Consult # [id number] Date of Service (Procedure/Event): 06/14/2024 Note Title: COMMUNITY CARE CONSULT RESULT NOTE Origin: FEE Type: ORDER Specialty: HOME HEALTH Procedure: PHYSICIAN VERBAL MEDICATION ORDER [facility] SCANNED DOCUMENT SIGNATURE NOT REQUIRED Electronically Filed: 06/23/2024 by: NICOLE CASTELLON LEAD WEB DEVELOPER INCOLE CASTELLON [facility]
--- OUTSIDE RECORDS SUMMARY | 2024-07-07 22:29 | XMS_ITS | Encounter Summary ---
Author Name [facility] Organization [facility] [place] Address [address] [place] [address] Care Team Providers Care Orthotic And Prosthetic Technician Name Role Phone KYRA VELASQUEZ Primary [...] Ervin's Name Patient's Relationship to Policy Ervin [facility] (WNR) MEDICARE ADVANTAGE MCR(W NR) * Aug 23, 2023 [id number] ANNALISA LOYD ITE PATIENT [facility] (WNR) MEDICARE ADVANTAGE [facility] (WNR) Aug 23, 2020 [id number] [phone] ANNALISA LOYD ITE PATIENT [facility] (WNR) MEDICARE ADVANTAGE MCR(W NR) Aug 23, 2012 [id number] [phone] ANNALISA LOYD ITE PATIENT Selected Encounter This section includes the information on record at OR for the Encounter. Date/Time Encounter Type Encounter Description Reason Provider Source Jun 21, 2024 09:26 AM CASE MANAGEMENT TELEPHONE/CRIS MONTOYA ICD-10-CM Z02.9 Encounter for administrative examinations, unspecified RASHID CHINO IHJannette Encounter Template Text not used by [place] Assessments - Encounter Diagnoses This section includes the primary and secondary diagnoses documented for the Encounter. Date/Time Primary/Secondary Diagnosis Diagnosis Name Provider Source Jun 21, 2024 09:26 AM PRIMARY Encounter for administrative examinations, unspecified Stevo CHINO ONSTANCE SONYA [facility] Plan of Treatment: Future Appointments (+ 6 months) and Future Tests (+/- 45 days) The Plan of Treatment section includes future care activities for the [facility] This section includes future appointments and future orders which are active, pending or scheduled. Future Appointments This section includes appointments that were scheduled to occur 6 months from the date of the Encounter, up to a maximum of 20 appointments. The data comes from all [facility]. Appointment Date/Time Appointment Type Appointme nt Facility Name Jul 11, 2024 10:00 AM AMBULATORY - SURGERY [facility] Jul 11, 2024 10:01 AM AMBULATORY - SURGERY [facility] Jul 24, 2024 11:00 AM AMBULATORY - SURGERY [facility] Jul 27, 2024 10:00 AM AMBULATORY - NONE [place] [place] [facility]LE [facility] Aug 29, 2024 10:30 AM AMBULATORY - NONE [place] [facility] Aug 29, 2024 11:15 AM AMBULATORY - SURGERY [facility] Oct 23, 2024 01:00 PM AMBULATORY - MEDICINE [facility] Oct 23, 2024 01:01 PM AMBULATORY - NONE [place] JOELLE [facility] Active, Pending, and Scheduled Orders This section includes a listing of several types of active, pending, and scheduled orders, including clinic medications orders, diagnostic test orders, procedure orders and consult orders; where the start date of the order is 45 days before the date of the Encounter or 45 days after the date of theEncounter. The data comes from all [facility]. 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 Ordering Provider: KAREEM CERNA Report Released Date/Time: Jun 07, 2024 04:57 PM Reporting Lab: [facility] [address] [facility] [address] Performing Lab: [facility] [address] [facility] [address] URINE COLOR Light-Yellow NOT DEFINED SPECIFIC GRAVITY [...] Height Weight Body Mass Index Source Jun 21, 2024 12:41 PM 96.6 72 107/69 16 98 [facility] Social History: Smoking [...] 2024 03:55 PM CURRENT SMOKER REINIER GAYLE [facility] Tobacco Use History This section includes a history of the smoking, or tobacco-related health factors, that were collected on or before the date of the Encounter. The data comes from the [place] facility where the Encounter took place. Date/Time Smoking Status/Tobacco Use Comment F acility Feb 21, 2024 10:15 AM VA-TOBACCO USE > 1 5 LESS THAN 30 YEARS [facility] Feb 21, 2024 10:15 AM VA-TOBACCO USE ADVICE [facility] Feb 21, 2024 10:15 AM VA-TOBACCO USE TAILMAN NO [facility] Feb 21, 2024 10:15 AM VA-TOBACCO USE MED NO [facility] Feb 21, 2024 10:15 AM VA-TOBACCO USE WI 30 MIN OF WAKEUP [facility] Feb 21, 2024 10:15 AM VA-TOBACCO USER EVERY DAY [facility] Jul 17, 2021 02:27 PM CURRENT SMOKER REINIER Bhatia [facility] Jul 01, 2021 08:55 PM VA-VAAES TOBACCO U SE CURRENT NRT DECLINE [facility] Jul 01, 2021 02:41 PM CURRENT SMOKER REINIER Bhatia [facility] Dec 08, 2020 [...] DISCUSSION PURNIMA ROJAS [facility] Pathology Reports: +/- 30 days [...] the Encounter. The data comes from all [facility] facilities. Date/Time Pathology Report Provider Source Jun 07, 2024 05:30 PM LR MICROBIOLOGY RE PORT: Reporting Lab: [facility] [CLIA# [id number]] [address] [place] [address] Accession [UID]: [id number] [[id number]] Received: Jun 07, 2024@18:38 Collection sample: URINE CLEAN CATCH Collection date: Jun 07, 2024 17:30 Site/Specimen: URINE Provider: TODD CERNA Test(s) ordered: CULTURE,URINE CLEAN CATCH..... completed: Jun 10, 2024 12:19 * BACTERIOLOGY FINAL REPORT => Jun 12, 2024 11:34 TECH CODE: [id number] CULTURE RESULTS: 1. ENTEROCOCCUS FAECALIS - Quantity: [...] Bacteriology Report Performed By: SONYA GAYLE [facility] [CLIA# [id number]] [address] [place] [address] [facility] Encounter Notes: All associated encounter notes This section contains the clinical notes associated to the Encounter. Date/Time Encounter Note(s) Provider Source Jun 21, 2024 09:26 AM CAREGIVER CERTIFIC ATE: LOCAL TITLE: CSP TELEPHONE NOTE STANDARD TITLE: CAREGIVER CERTIFICATE DATE OF NOTE: JUN 21, 2024@09:26 ENTRY DATE: JUN 21, 2024@09:27:18 AUTHOR: ESTRELLITA CHINO EXP COSIGNER: URGENCY: STATUS: COMPLETED TC [place] and schedule [place] and Caregiver Assessments for 9:30 AM WednesdayJune 26 over the phone. /vivian/ MODE Holguin [facility] [place] [place] Advocate Signed: 06/21/2024 09:30 ALMA CHINO [facility]
--- OUTSIDE RECORDS SUMMARY | 2024-07-07 22:29 | XMS_ITS | Encounter Summary ---
Author Name [facility] [facility] [place] [facility] [place] Address [address] [place] [address] Care Team Providers Care Weigher And Charger Name Role Phone KYRA VELASQUEZ Primary Care [...] Patient's Relationship to Policy Ervin [facility] (WNR) MEDICARE [facility](W NR) * Aug 23, 2023 [id number] [phone] ANNALISA LOYD ITE PATIENT [facility] (WNR) MEDICARE ADVANTAGE [facility] (WNR) Aug 23, 2020 [id number] [phone] ANNALISA LOYD ITE PATIENT [facility] (WNR) MEDICARE ADVANTAGE [facility](W NR) Aug 23, 2012 [id number] ANNALISA LOYD ITJannette PATIENT Selected Encounter This section includes the information on record at [place] for the Encounter. Date/Time Encounter Type Encounter Description Reason Pro vider Source Jun 27, 2024 10:13 AM Outpatient Encounter ADMIN PAT ACTIVTIES (MASNONCT) [...] 11, 2024 10:01 AM AMBULATORY - SURGERY [facility] Jul 24, 2024 11:00 AM AMBULATORY - SURGERY [facility] Jul 27, 2024 10:00 AM AMBULATORY - NONE [facility] Aug 29, 2024 10:30 AM AMBULATORY - NONE [facility] Aug 29, 2024 11:15 AM AMBULATORY - SURGERY [facility] Oct 23, 2024 01:00 PM AMBULATORY - MEDICINE [facility] Oct 23, 2024 01:01 PM AMBULATORY - NONE [facility] Active, Pending, and Scheduled Orders This section includes a listing of several types of active, pending, and scheduled orders, including clinic medications orders, diagnostic test orders, procedure orders and consult orders; where the start date of the order is 45 days before the date of the Encounter or 45 days after the date of theEncounter. The data comes from all [place] treatment [facility]. 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 Date/Time Current Smoking Status Comment Nataly itjaclyn Jun 07, 2024 03:55 PM CURRENT SMOKER WHIT [facility] Tobacco Use History This section includes a history of the smoking, or tobacco-related health factors, that were collected on or before the date of the Encounter. The data comes from the [place] facility where the Encounter took place. 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 completed: Jun 10, 2024 12:19 * BACTERIOLOGY FINAL REPORT => Jun 12, 2024 11:34 TECH CODE: [id number] CULTURE RESULTS: 1. ENTEROCOCCUS FAECALIS - Quantity: [...] Report Performed By: [facility] [CLIA# [id number]] [address] [place] [address] [facility] Encounter Notes: All associated encounter notes This section contains the clinical notes associated to the Encounter. Date/Time Encounter Note(s) Provider Source Jun 28, 2024 01:05 PM ADDENDUM: LOCAL TITLE: Addendum STANDARD TITLE: ADDENDUM DATE OF NOTE: JUN 28, 2024@13:05:41 ENTRY DATE: JUN 28, 2024@13:05:41 AUTHOR: KYRA VELASQUEZ EXP COSIGNER: URGENCY: STATUS: COMPLETED he may be a candidate for glycopyrrolate for secretion control which unlike scopolamine does not cross the blood brain barrier and may be less sedating. i would suggest a palliative care consultation for input regarding this - consult entered /vivian/ KYRA VELASQUEZ M.D INTERNAL MEDICINE, [facility] Signed: 06/28/2024 13:07 Receipt Acknowledged By: 06/30/2024 09:45 /vivian/ OJ GIL RN --- Original Document --- 06/27/24 CCC: SCHEDULING ADMINISTRATION: Patient Demographics Patient Name: GALINA LOYD JR Patient Primary Phone: [phone] Patient Primary [address]: [address] [place] [address] Patient : 1945 Patient Age: 78 Current Location: [facility] Call Back Number: [phone] EXT [phone] Caller/Recipient Relation to Patient: Other If Other Describe Relation to Patient: [facility] Caller Name: EILEEN Administrative Administrative Note Reason: Home Health / Skilled Nursing Administrative Note Comments: PT IS HAVING INCREASE IN DECRETION AND IS NOT TAKING MEDS PRESCRIBED. Notes Notes & Information: PLEASE CALL EILEEN WANTS TO KNOW IF PT CAN TAKE SCOPOLANINE PATCH IMPORTANT: This note was created by [place] [facility] Clinical Contact Center staff. Please do not alert the staff member by adding them as a signer for future communications. Alerts are not monitored by this user. /es/ MARILU GARCIA Medical Workcell Operator Signed: 06/27/2024 10:13 Receipt Acknowledged By: 06/28/2024 12:46 /es/ KYRA VELASQUEZ M.D INTERNAL MEDICINE, [facility] 06/27/2024 14:12 /vivian/ OJ GIL RN 06/27/2024 ADDENDUM STATUS: COMPLETED Contact with [facility]- Eileen- states situation is getting worse. States that secretions have been excessive, but not a bother until recently. Interferring with ability to eat/drink/taking meds. Losing weight- about 90lbs. Vet is sleeping better portion of the day- 15 hours. States vet is candidate for Hospice and would benefit, but states vet himself is resistent/not ready. VNA is suggesting scopolamine to help with secretions- vet is already drowzy, hx of seizures, on sezure med, issue with urination. Any intervention suggestions? 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 /vivian/ OJ GIL RN Signed: 06/27/2024 14:12 06/27/2024 ADDENDUM STATUS: COMPLETED TW authorized 10 hours/week of MANAGER CANCER/HMKR services which was declined at end of April. TW can reach out to 's daughter to discuss further. Should add MEDICAL LEGAL INVESTIGATOR to VNA orders for support with decision making regarding Hospice care. /vivian/ DAMARIS COCHRAN Signed: 06/27/2024 14:32 06/27/2024 ADDENDUM STATUS: COMPLETED TC to 's daughter Bertha. Left HIPAA compliant message requesting a return call. /es/ DAMARIS COCHRAN Signed: 06/27/2024 14:45 06/28/2024 ADDENDUM STATUS: COMPLETED call from [facility] reporting: no BM x's 1 week. Bowel sounds active all 4 quads, abd soft, not distended had feeling of having to go yesterday- sat on toilet with no results. has been taking sennoides very limited food/liq intake Refusing enema Refusing hosp vet spends most/all of time in bed- requesteing eggcrate mattress (developing pressure areas) /es/ OJ GIL RN Signed: 06/28/2024 13:06 Receipt Acknowledged By: * AWAITING SIGNATURE * DAMARIS COCHRAN 06/29/2024 09:32 /es/ KYRA VELASQUEZ M.D INTERNAL MEDICINE, [facility] * AWAITING SIGNATURE * ELYSIA MILLER 06/30/2024 ADDENDUM STATUS: UNSIGNED You may not VIEW this UNSIGNED Addendum. KYRA VELASQUEZ [facility] Jun 28, 2024 12:23 PM ADDENDUM: LOCAL TITLE: Addendum STANDARD TITLE: ADDENDUM DATE OF NOTE: JUN 28, 2024@12:23:41 ENTRY DATE: JUN 28, 2024@12:23:42 AUTHOR: OJ GIL COSIGNER: URGENCY: STATUS: COMPLETED call from [facility] reporting: no BM x's 1 week. Bowel sounds active all 4 quads, abd soft, not distended had feeling of having to go yesterday- sat on toilet with no results. has been taking sennoides very limited food/liq intake Refusing enema Refusing hosp vet spends most/all of time in bed- requesteing eggcrate mattress (developing pressure areas) /vivian/ OJ GIL RN Signed: 06/28/2024 13:06 Receipt Acknowledged By: 07/04/2024 07:50 /es/ DAMARIS COCHRAN 06/29/2024 09:32 /es/ KYRA VELASQUEZ M.D INTERNAL MEDICINE, [facility] 06/30/2024 14:13 /es/ ELYSIA MILLER Physical Therapist, licenced in [place] --- Original Document --- 06/27/24 CCC: SCHEDULING ADMINISTRATION: Patient Demographics Patient Name: GALINA LOYD JR Patient Primary Phone: [phone] Patient Primary [address]: [address] [place] [address] Patient : 1945 Patient Age: 78 Current Location: [facility] Call Back Number: [phone] EXT [phone] Caller/Recipient Relation to Patient: Other If Other Describe Relation to Patient: VNA Caller Name: EILEEN Administrative Administrative Note Reason: Home Health / Skilled Nursing Administrative Note Comments: PT IS HAVING INCREASE IN DECRETION AND IS NOT TAKING MEDS PRESCRIBED. Notes Notes & Information: PLEASE CALL EILEEN , WANTS TO KNOW IF PT CAN TAKE SCOPOLANINE PATCH IMPORTANT: This note was created by [facility] Clinical Contact Center staff. Please do not alert the staff member by adding them as a signer for future communications. Alerts are not monitored by this user. /vivian/ MARILU GARCIA Medical Workcell Operator Signed: 06/27/2024 10:13 Receipt Acknowledged By: 06/28/2024 12:46 /es/ KYRA VELASQUEZ M.D INTERNAL MEDICINE, [facility] 06/27/2024 14:12 /es/ OJ GIL RN 06/27/2024 ADDENDUM STATUS: COMPLETED Contact with ALFREDO Arellano- states situation is getting worse. States that secretions have been excessive, but not a bother until recently. Interferring with ability to eat/drink/taking meds. Losing weight- about 90lbs. Vet is sleeping better portion of the day- 15 hours. States vet is candidate for Hospice and would benefit, but states vet himself is resistent/not ready. VNA is suggesting scopolamine to help with secretions- vet is already drowzy, hx of seizures, on sezure med, issue with urination. Any intervention suggestions? 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 /huber GIL RN Signed: 06/27/2024 14:12 06/27/2024 ADDENDUM STATUS: COMPLETED TW authorized 10 hours/week of MANAGER CANCER/HMKR services which was declined at end of April. TW can reach out to 's daughter to discuss further. Should add MEDICAL LEGAL INVESTIGATOR to VNA orders for support with decision making regarding Hospice care. /vivian/ DAMARIS COCHRAN Signed: 06/27/2024 14:32 06/27/2024 ADDENDUM STATUS: COMPLETED TC to [place]'s daughter Bertha. Left HIPAA compliant message requesting a return call. /vivian/ DAMARIS COCHRAN Signed: 06/27/2024 14:45 06/28/2024 ADDENDUM STATUS: COMPLETED he may be a candidate for glycopyrrolate for secretion control which unlike scopolamine does not cross the blood brain barrier and may be less sedating. i would suggest a palliative care consultation for input regarding this - consult entered /vivian/ KYRA VELASQUEZ M.D INTERNAL MEDICINE, [facility] Signed: 06/28/2024 13:07 Receipt Acknowledged By: 06/30/2024 09:45 /huber GIL RN 06/30/2024 ADDENDUM STATUS: COMPLETED Informed Eileen of the above. /huber GIL RN Signed: 06/30/2024 09:46 OJ GIL [facility] Jun 27, 2024 02:02 PM ADDENDUM: LOCAL TITLE: Addendum STANDARD TITLE: ADDENDUM DATE OF NOTE: JUN 27, 2024@14:02:27 ENTRY DATE: JUN 27, 2024@14:02:27 AUTHOR: OJ GIL COSIGNER: URGENCY: STATUS: COMPLETED Contact with [facility]- Eileen- states situation is getting worse. States that secretions have been excessive, but not a bother until recently. Interferring with ability to eat/drink/taking meds. Losing weight- about 90lbs. Vet is sleeping better portion of the day- 15 hours. States vet is candidate for Hospice and would benefit, but states vet himself is resistent/not ready. VNA is suggesting scopolamine to help with secretions- vet is already drowzy, hx of seizures, on sezure med, issue with urination. Any intervention suggestions? /es/ OJ GIL RN Signed: 06/27/2024 14:10 Receipt Acknowledged By: * AWAITING SIGNATURE * PILAR THAYER 06/27/2024 14:28 /es/ DAMARIS COCHRAN 06/28/2024 13:05 /es/ KYRA VELASQUEZ M.D INTERNAL MEDICINE, [facility] --- Original Document --- 06/27/24 CCC: SCHEDULING ADMINISTRATION: Patient Demographics Patient Name: GALINA LOYD JR Patient Primary Phone: [phone] Patient Primary [address]: [address] [place] [address] Patient : 1945 Patient Age: 78 Current Location: [facility] Call Back Number: [phone] EXT [phone] Caller/Recipient Relation to Patient: Other If Other Describe Relation to Patient: VNA Caller Name: EILEEN Administrative Administrative Note Reason: Home Health / Skilled Nursing Administrative Note Comments: PT IS HAVING INCREASE IN DECRETION AND IS NOT TAKING MEDS PRESCRIBED. Notes Notes & Information: PLEASE CALL TRANG ARELLANOS TO KNOW IF PT CAN TAKE SCOPOLANINE PATCH IMPORTANT: This note was created by [place] [facility] Clinical Contact Center staff. Please do not alert the staff member by adding them as a signer for future communications. Alerts are not monitored by this user. 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 /vivian/ OJ GIL RN Signed: 06/27/2024 14:12 06/27/2024 ADDENDUM STATUS: COMPLETED TW authorized 10 hours/week of MANAGER CANCER/HMKR services which was declined at end of April. TW can reach out to [place]'s daughter to discuss further. Should add MEDICAL LEGAL INVESTIGATOR to VNA orders for support with decision making regarding Hospice care. /vivian/ DAMARIS COCHRAN Signed: 06/27/2024 14:32 06/27/2024 ADDENDUM STATUS: COMPLETED TC to [place]'s daughter Bertha. Left HIPAA compliant message requesting a return call. /vivian/ DAMARIS COCHRAN Signed: 06/27/2024 14:45 06/28/2024 ADDENDUM STATUS: UNSIGNED You may not VIEW this UNSIGNED Addendum. 06/28/2024 ADDENDUM STATUS: UNSIGNED You may not VIEW this UNSIGNED Addendum. OJ GIL T [facility] Jun 27, 2024 10:13 AM ADMINISTRATIVE NOT E: LOCAL TITLE: CCC: SCHEDULING ADMINISTRATION STANDARD TITLE: ADMINISTRATIVE NOTE DATE OF NOTE: JUN 27, 2024@10:13:47 ENTRY DATE: JUN 27, 2024@10:13:48 AUTHOR: MARILU GARCIA EXP COSIGNER: URGENCY: STATUS: COMPLETED CCC: SCHEDULING ADMINISTRATION Has ADDENDA Patient Demographics Patient Name: GALINA LOYD JR Patient Primary Phone: [phone] Patient Primary Address: [address] [place] [address] Patient : 1945 Patient Age: 78 Current Location: [facility] Call Back Number: [phone] EXT [phone] Caller/Recipient Relation to Patient: Other If Other Describe Relation to Patient: VNA Caller Name: EILEEN Administrative Administrative Note Reason: Home Health / Skilled Nursing Administrative Note Comments: PT IS HAVING INCREASE IN DECRETION AND IS NOT TAKING MEDS PRESCRIBED. Notes Notes & Information: PLEASE CALL EILEEN , WANTS TO KNOW IF PT CAN TAKE SCOPOLANINE PATCH IMPORTANT: This note was created by [facility] Clinical Contact Center staff. Please do not alert the staff member by adding them as a signer for future communications. Alerts are not monitored by this user. /vivian/ MARILU GARCIA Medical Workcell Operator Signed: 06/27/2024 10:13 Receipt Acknowledged By: 06/28/2024 12:46 /es/ KYRA VELASQUEZ M.D INTERNAL MEDICINE, [facility] 06/27/2024 14:12 /es/ OJ GIL RN 06/27/2024 ADDENDUM STATUS: COMPLETED Contact with [facility]- Eileen- states situation is getting worse. States that secretions have been excessive, but not a bother until recently. Interferring with ability to eat/drink/taking meds. Losing weight- about 90lbs. Vet is sleeping better portion of the day- 15 hours. States vet is candidate for Hospice and would benefit, but states vet himself is resistent/not ready. VNA is suggesting scopolamine to help with secretions- vet is already drowzy, hx of seizures, on sezure med, issue with urination. Any intervention suggestions? 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 /vivian/ OJ GIL RN Signed: 06/27/2024 14:12 06/27/2024 ADDENDUM STATUS: COMPLETED TW authorized 10 hours/week of MANAGER CANCER/HMKR services which was declined at end of April. TW can reach out to [place]'s daughter to discuss further. Should add MEDICAL LEGAL INVESTIGATOR to VNA orders for support with decision making regarding Hospice care. /vivian/ DAMARIS COCHRAN Signed: 06/27/2024 14:32 06/27/2024 ADDENDUM STATUS: COMPLETED TC to 's daughter Bertha. Left HIPAA compliant message requesting a return call. /vivian/ DAMARIS COCHRAN Signed: 06/27/2024 14:45 06/28/2024 ADDENDUM STATUS: COMPLETED call from [facility] reporting: no BM x's 1 week. Bowel sounds active all 4 quads, abd soft, not distended had feeling of having to go yesterday- sat on toilet with no results. has been taking sennoides very limited food/liq intake Refusing enema Refusing hosp vet spends most/all of time in bed- requesteing eggcrate mattress (developing pressure areas) /vivian/ OJ GIL RN Signed: 06/28/2024 13:06 Receipt Acknowledged By: * AWAITING SIGNATURE * DAMARIS COCHRAN 06/29/2024 09:32 /vivian/ KYRA VELASQUEZ M.D INTERNAL MEDICINE, [facility] * AWAITING SIGNATURE * ELYSIA MILLER 06/28/2024 ADDENDUM STATUS: COMPLETED he may be a candidate for glycopyrrolate for secretion control which unlike scopolamine does not cross the blood brain barrier and may be less sedating. i would suggest a palliative care consultation for input regarding this - consult entered /vivian/ KYRA VELASQUEZ M.D INTERNAL MEDICINE, [facility] Signed: 06/28/2024 13:07 Receipt Acknowledged By: 06/30/2024 09:45 /huber GIL RN 06/30/2024 ADDENDUM STATUS: COMPLETED Informed Eileen of the above. /vivian/ OJ GIL RN Signed: 06/30/2024 09:46 MARILU GARCIA [facility]
--- OUTSIDE RECORDS SUMMARY | 2024-07-07 22:29 | XMS_ITS | Encounter Summary ---
Author Name [place] Organization [place] Address [address] [place] [address] Care Team Providers Care Reduction Plant Supervisor Name Role Phone KYRA VELASQUEZ Primary [...] [facility] (WNR) MEDICARE ADVANTAGE MCR(W NR) * Aug 23, 2023 [id number] ANNALISA LOYD ITE PATIENT [facility] (WNR) MEDICARE ADVANTAGE [facility] (WNR) Aug 23, 2020 [id number] [phone] ANNALISA LOYD ITE PATIENT [facility] (WNR) MEDICARE [facility](W NR) Aug 23, 2012 [id number] ANNALISA LOYD ITE PATIENT Selected Encounter This section includes the information on record at [place] for the Encounter. Date/Time Encounter Type Encounter Description Reason Pro vider Source Jun 20, 2024 12:00 PM Outpatient Encounter COMMUNITY CARE CONSULT IHE Encounter Template Text not used by [facility] Plan of Treatment: Future Appointments (+ 6 months) and Future Tests (+/- 45 days) The Plan of Treatment section includes future care activities for the patient from all [place] [facility]. This section includes future appointments and future orders which are active, pending or scheduled. Future Appointments This section includes appointments that were scheduled to occur 6 months from the date of the Encounter, up to a maximum of 20 appointments. The data comes from all [facility]. Appointment Date/Time Appointment Type Appointme nt Facility Name Jun 21, 2024 12:30 PM AMBULATORY - SURGERY [facility] Jul 11, 2024 10:00 AM AMBULATORY - SURGERY [facility] Jul 11, 2024 10:01 AM AMBULATORY - SURGERY [facility] Jul 24, 2024 11:00 AM AMBULATORY - SURGERY [facility] Jul 27, 2024 10:00 AM AMBULATORY - NONE [place]LE [facility] Aug 29, 2024 10:30 AM AMBULATORY - NONE [place] [facility] Aug 29, 2024 11:15 AM AMBULATORY - SURGERY [facility] Oct 23, 2024 01:00 PM AMBULATORY - MEDICINE [facility] Oct 23, 2024 01:01 PM AMBULATORY - NONE [place] [facility] Active, Pending, and [...] from all [facility]. 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 [facility] Lab Results: +/- 30 [...] [facility] [address] [facility] [address] Performing Lab: [facility] [address] [facility] [address] URINE COLOR Light-Yellow NOT DEFINED SPECIFIC GRAVITY [...] 2024 03:55 PM CURRENT SMOKER WHIT Jannette [facility] Tobacco Use History This [...] Feb 21, 2024 10:15 AM VA-TOBACCO USE GED TUTOR NO [facility] Feb 21, 2024 10:15 AM VA-TOBACCO USE MED NO [facility] Feb 21, 2024 10:15 AM VA-TOBACCO USE WI 30 MIN OF WAKEUP [facility] Feb 21, 2024 10:15 AM VA-TOBACCO USER EVERY DAY [facility] Jul 17, 2021 02:27 PM CURRENT SMOKER REINIER GAYLE [facility] Jul 01, 2021 08:55 PM VA-VAAES [...] comes from all [place] treatment facilities. Date/Time Pathology Report Provider Source Jun 07, 2024 05:30 PM LR MICROBIOLOGY RE PORT: Reporting Lab: [facility] [CLIA# [id number]] [address] [facility] [place] [address] Accession [UID]: [id number] [[id number]] Received: Jun 07, 2024@18:38 Collection sample: URINE CLEAN CATCH Collection date: Jun 07, 2024 17:30 Site/Specimen: URINE Provider: TODD VALVERDE Test(s) ordered: CULTURE,URINE CLEAN CATCH..... completed: Jun 10, 2024 12:19 * BACTERIOLOGY FINAL REPORT => Jun 12, 2024 11:34 TECH CODE: [id number] CULTURE RESULTS: 1. ENTEROCOCCUS FAECALIS - Quantity: [...] Laboratory: Bacteriology Report Performed By: SONYA PINON [facility] [CLIA# [id number]] [address] [facility] [place] [address] SONYA LA SALLE KATHRIN [facility] Encounter Notes: All associated encounter notes This section contains the clinical notes associated to the Encounter. Date/Time Encounter Note(s) Provider Source Jun 20, 2024 12:00 PM NONVA CONSULT: LOCAL TITLE: COMMUNITY CARE CONSULT RESULT NOTE STANDARD TITLE: NONVA CONSULT DATE OF NOTE: JUN 20, 2024@12:00 ENTRY DATE: JUN 29, 2024@10:28:48 AUTHOR: ETIENNE WOOD EXP COSIGNER: URGENCY: STATUS: COMPLETED VistA Imaging - Scanned Document COMMUNITY CARE-PALLIATIVE CARE Cons Consult # [id number] Date of Service (Procedure/Event): 06/20/2024 Note Title: COMMUNITY CARE CONSULT RESULT NOTE Origin: FEE Type: PROGRESS NOTE Specialty: PALLIATIVE CARE-CARE DISCUSSION AND SYMPTOM MANAGEMENT [facility] SCANNED DOCUMENT SIGNATURE NOT REQUIRED Electronically Filed: 06/29/2024 by: ETIENNE MCCORMACK [facility]
--- OUTSIDE RECORDS SUMMARY | 2024-07-07 22:29 | XMS_ITS | Encounter Summary ---
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 Date/Time Encounter Type Encounter Description Reason Provider Source Jun 21, 2024 12:30 PM URINARY LEG OR ABDOMEN BAG [facility] ICD-10-CM R33.8 Other retention of urine KERA SALCEDO IHJannette Encounter Template Text not used by [place] Assessments - Encounter Diagnoses This section includes the primary and secondary diagnoses documented for the Encounter. Date/Time Primary/Secondary Diagnosis Diagnosis Name Provider Source Jun 21, 2024 04:26 PM PRIMARY Other retention of urine ASIA SALCEDO [facility] Plan of Treatment: Future Appointments (+ 6 months) and Future Tests (+/- 45 days) The Plan of Treatment section includes future care activities for the patient from all [place] [facility]. This section includes future appointments and future orders which are active, pending or scheduled. Future Appointments This section includes appointments that were scheduled to occur 6 months from the date of the Encounter, up to a maximum of 20 appointments. The data comes from all [facility]. Appointment Date/Time Appointment Type Appointme nt Facility Name Jul 11, 2024 10:00 AM AMBULATORY - SURGERY [facility] Jul 11, 2024 10:01 AM AMBULATORY - SURGERY [facility] Jul 24, 2024 11:00 AM AMBULATORY - SURGERY [facility] Jul 27, 2024 10:00 AM AMBULATORY - NONE [place] [facility] Aug 29, 2024 10:30 AM AMBULATORY - NONE [place] [facility] Aug 29, 2024 11:15 AM AMBULATORY - SURGERY [facility] Oct 23, 2024 01:00 PM AMBULATORY - MEDICINE [facility] Oct 23, 2024 01:01 PM AMBULATORY - NONE [place] [facility] Active, Pending, and Scheduled Orders This section includes a listing of several types of active, pending, and scheduled orders, including clinic medications orders, diagnostic test orders, procedure orders and consult orders; where the start date of the order is 45 days before the date of the Encounter or 45 days after the date of theEncounter. The data comes from all [facility]. 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 [facility] Lab Results: +/- 30 [...] Reporting Lab: [facility] [address] [facility] [address] Performing Lab: [facility] [address] [facility] [address] URINE COLOR Light-Yellow NOT DEFINED SPECIFIC GRAVITY [...] 12:41 PM 96.6 72 107/69 16 98 [facility] Social History: Smoking Status [...] 2024 03:55 PM CURRENT SMOKER REINIER GAYLE [facility] Tobacco Use History This section includes [...] Feb 21, 2024 10:15 AM VA-TOBACCO USE JUNIOR DATABASE ADMINISTRATOR NO [facility] Feb 21, 2024 [...] PM CURRENT SMOKER REINIER GAYLE [facility] Dec 08, 2020 08:45 PM VA-TOBACCO [...] the Encounter. The data comes from all [facility] facilities. Date/Time Pathology Report Provider Source Jun 07, 2024 05:30 PM LR MICROBIOLOGY RE PORT: Reporting Lab: [facility] [CLIA# [id number]] [address] [place] [address] Accession [UID]: [id number] [[id number]] Received: Jun 07, 2024@18:38 Collection sample: URINE CLEAN CATCH Collection date: Jun 07, 2024 17:30 Site/Specimen: URINE Provider: TODD CERNA Test(s) ordered: CULTURE,URINE CLEAN CATCH..... completed: Jun 10, 2024 12:19 * BACTERIOLOGY FINAL REPORT => Jun 12, 2024 11:34 TECH CODE: [id number] CULTURE RESULTS: 1. ENTEROCOCCUS FAECALIS - Quantity: [...] Report Performed By: [facility] [CLIA# [id number]] [address] [place] [address] [facility] Encounter Notes: All associated encounter notes This section contains the clinical notes associated to the Encounter. Date/Time Encounter Note(s) Provider Source Jun 21, 2024 07:48 AM UROLOGY NURSING NO TE: LOCAL TITLE: Urology/Nurse Note STANDARD TITLE: UROLOGY NURSING NOTE DATE OF NOTE: JUN 21, 2024@07:48 ENTRY DATE: JUN 21, 2024@07:48:48 AUTHOR: GINGER SALCEDO COSIGNER: URGENCY: STATUS: COMPLETED Nurse clinic:Giraldo removal/Fail TOV/CIC Patient presents to clinic for: Giraldo removal/TOV CIC. Patient is alert and oriented x3. Patient identity confirmed. Yes Patient provided with teaching and opportunity to ask questions. Yes Patient consents to this intervention. Yes Patient allergies reviewed. Yes Patient received: Sulfamethoxazole/Trimethop rim (Bactrim DS) 800 mg/160 mg oral x1, Ibuprofen 600 mg Procedure Notes Voiding Trial: Pt presents with indwelling 16 Fr giraldo catheter secured by stat lock and connected to large leg bag with clear yellow urine approx. 200 mL. Instilled 240 ml of sterile saline via catheter and pt felt a strong urge with urine leaking out around catheter to void. Balloon deflated,16 fr Giraldo catheter removed, no abn noted to meatus and pt transferred to sitting position, provided with urinal. attempted to urinate with scant output into urinal. KFF=857 Pt returned to waiting area and encouraged to drink water and return to clinic after urinating or up to 2 hours. Pt brought back to clinic he had not been able to drink more than 2 8 oz cups of water. Pt attempted to urinate with <20 cc output of dark yellow urine. PVR 167 cc. Urinary Catheter Insertion/Exchange Size of Catheter:16 Fr Amount of initial return:150 cc Description of urine:dark yellow Inserted without difficulty: Yes Giraldo catheter placed onto Left leg secured with statlock attachet to large leg bag with extension set. Post-procedure: Supplies for care of catheter given, 2 large leg bags, 2 extension sets, 2 statlocks. Instructions for catheter care reviewed with patient and daughter. Patient understands if he has problems with patency of catheter, josemanuel bleeding, s/s of UTI or any other concerns he is to call telephone triage or present to the nearest ER for evaluation. Pt concurs with this plan. Return to clinic in 4-6 weeks. CIC Teaching: Pt sts he is not interested in CIC teaching. Pt understands if he has problems, excessive bleeding or any other concerns he is to call or present to the nearest ER for evaluation and possible Giraldo reinsertion. Pt concurs with this plan. /vivian/ GINGER SALCEDO rn Signed: 06/21/2024 16:26 GINGER SALCEDO [facility]
--- OUTSIDE RECORDS SUMMARY | 2024-07-07 22:29 | XMS_ITS | Encounter Summary ---
Author Name Department [place] Organization [place] Address [address] [place] [address] Care Team Providers Care Lobbyist Name Role Phone KYRA VELASQUEZ Primary Care [...] Patient's Relationship to Policy Ervin [facility] (WNR) MEDICARE ADVANTAGE MCR(W NR) * Aug 23, 2023 [id number] ANNALISA LOYD ITE PATIENT [facility] (WNR) MEDICARE ADVANTAGE [facility] (WNR) Aug 23, 2020 [id number] [phone] ANNALISA LOYD ITE PATIENT [facility] (WNR) MEDICARE [facility](W NR) Aug 23, 2012 [id number] [phone] ANNALISA LOYD ITE PATIENT Selected Encounter This section includes the information on record at [place] for the Encounter. Date/Time Encounter Type Encounter Description Reason Pro vider Source Jun 28, 2024 01:02 PM Outpatient Encounter TELEPHONE/MEDICINE IHE Encounter Template Text not used by [place] Plan of Treatment: Future Appointments (+ 6 months) and Future Tests (+/- 45 days) The Plan of Treatment section includes future care activities for the patient from all [place] [facility]. This section includes future appointments and future orders which are active, pending or scheduled. Future Appointments This section includes appointments that were scheduled to occur 6 months from the date of the Encounter, up to a maximum of 20 appointments. The data comes from all [facility]. Appointment Date/Time Appointment Type Appointme nt Facility Name Jul 11, 2024 10:00 AM AMBULATORY - SURGERY [facility] Jul 11, 2024 10:01 AM AMBULATORY - SURGERY [facility] Jul 24, 2024 11:00 AM AMBULATORY - SURGERY [facility] Jul 27, 2024 10:00 AM AMBULATORY - NONE [place] [facility] [facility] Aug 29, 2024 10:30 AM AMBULATORY - NONE [place] [facility] [facility] Aug 29, 2024 11:15 AM AMBULATORY - SURGERY [facility] Oct 23, 2024 01:00 PM AMBULATORY - MEDICINE [facility] Oct 23, 2024 01:01 PM AMBULATORY - NONE [place] [facility] Active, Pending, and Scheduled Orders This section includes a listing of several types of active, pending, and scheduled orders, including clinic medications orders, diagnostic test orders, procedure orders and consult orders; where the start date of the order is 45 days before the date of the Encounter or 45 days after the date of theEncounter. The data comes from all [facility]. 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's [facility] Lab Results: +/- 30 days [...] Reporting Lab: [facility] [address] [facility] [address] Performing Lab: [facility] [address] [facility] [address] URINE COLOR Light-Yellow NOT DEFINED SPECIFIC GRAVITY [...] 07, 2024 03:55 PM CURRENT SMOKER WHIT [facility] Tobacco Use History This section [...] MEDICAL CENTER Feb 21, 2024 10:15 AM [place]-TOBACCO USE NUCLEAR WEAPONS MECHANICAL SPECIALIST NO [facility] Feb 21, 2024 10:15 AM VA-TOBACCO USE MED NO [facility] Feb 21, 2024 10:15 AM VA-TOBACCO USE WI 30 MIN OF WAKEUP [facility] Feb 21, 2024 10:15 AM VA-TOBACCO USER EVERY DAY [facility] Jul 17, 2021 02:27 PM CURRENT SMOKER REINIER Bhatia [facility] Jul 01, 2021 08:55 PM VA-VAAES TOBACCO U SE CURRENT NRT DECLINE [facility] Jul 01, 2021 02:41 PM CURRENT SMOKER [facility] Jannette [facility] Dec [...] comes from all [place] treatment facilities. Date/Time Pathology Report Provider Source Jun 07, 2024 05:30 PM LR MICROBIOLOGY RE PORT: Reporting Lab: [facility] [CLIA# [id number]] [address] [place] [address] Accession [UID]: [id number] [[id number]] Received: Jun 07, 2024@18:38 Collection sample: URINE CLEAN CATCH Collection date: Jun 07, 2024 17:30 Site/Specimen: URINE Provider: TODD CERNA Test(s) ordered: CULTURE,URINE CLEAN CATCH..... completed: Jun 10, 2024 12:19 * BACTERIOLOGY FINAL REPORT => Jun 12, 2024 11:34 TECH CODE: [id number] CULTURE RESULTS: 1. ENTEROCOCCUS FAECALIS - Quantity: [...] Report Performed By: [facility] [CLIA# [id number]] [address] [place] [address] [facility] Encounter Notes: All associated encounter notes This section contains the clinical notes associated to the Encounter. Date/Time Encounter Note(s) Provider Source Jun 28, 2024 01:03 PM SOCIAL WORK TELEPH ONE ENCOUNTER NOTE: LOCAL TITLE: VDC SW TELEPHONE NOTE STANDARD TITLE: SOCIAL WORK TELEPHONE ENCOUNTER NOTE DATE OF NOTE: JUN 28, 2024@13:03 ENTRY DATE: JUN 28, 2024@13:03:11 AUTHOR: CRYSTAL RUBIO EXP COSIGNER: URGENCY: STATUS: COMPLETED [place] [facility] (VDC) TELEPHONE NOTE Date of Call: 06/28/2024 Duration: 14:39 minutes SW contacted via telephone number on file (P#: ) and spoke with [place]'s spouse, Darrel. VELMA provided an overview of the Directed Care (VDC) program. Darrel shared that was assessed for hospice by [facility]; declined. Isabellejaswinder says that hospice agency plans to revisit next week to discuss again as [place]'s health is declining. Isabellejaswinder does not feel that VDC program would be appropriate at this time. VELMA encouraged Darrel to contact should her interest change; she thanked rfp writer for the call. VELMA to close consult. /vivian/ CRYSTAL RUBIO [facility] Ict Help Desk Technician Signed: 06/29/2024 13:55 CRYSTAL RUBIO [facility]
--- OUTSIDE RECORDS SUMMARY | 2024-07-07 22:29 | XMS_ITS ---
Author Name [place] Address [address] [place] [address] Care Team Providers Care Laundry Presser Name Role Phone KYRA GUTIERREZ Primary Care [...] Ervin [facility] (WNR) MEDICARE ADVANTAGE MCR(W NR) * Aug 23, 2023 [id number] [phone] ANNALISA LOYD ITE PATIENT [facility] (WNR) MEDICARE ADVANTAGE [facility] (WNR) Aug 23, 2020 [id number] [phone] ANNALISA LOYD ITE PATIENT [facility] (WNR) MEDICARE ADVANTAGE MCR(W NR) Aug 23, 2012 [id number] ANNALISA LOYD ITE PATIENT Selected Encounter This section includes the information on record at [place] for the Encounter. Date/Time Encounter Type Encounter Description Reason Provider Source Jun 26, 2024 09:34 AM CASE MANAGEMENT TELEPHONE/CRIS MONTOYA ICD-10-CM Z02.9 Encounter for administrative examinations, unspecified RASHID CHINO IHJannette Encounter Template Text not used by [place] Assessments - Encounter Diagnoses This section includes the primary and secondary diagnoses documented for the Encounter. Date/Time Primary/Secondary Diagnosis Diagnosis Name Provider Source Jun 26, 2024 09:34 AM PRIMARY Encounter for administrative examinations, unspecified Stevo CHINO ONSTANCE SONYA [facility] Plan of Treatment: Future Appointments (+ 6 months) and Future Tests (+/- 45 days) The Plan of Treatment section includes future care activities for the patient from [facility] [place] [facility] This section includes future appointments and future orders which are active, pending or scheduled. Future Appointments This section includes appointments that were scheduled to occur 6 months from the date of the Encounter, up to a maximum of 20 appointments. The data comes from all [facility]. Appointment Date/Time Appointment Type Appointme nt Facility Name Jul 11, 2024 10:00 AM AMBULATORY - SURGERY [facility] Jul 11, 2024 10:01 AM AMBULATORY - SURGERY [facility] Jul 24, 2024 11:00 AM AMBULATORY - SURGERY [facility] Jul 27, 2024 10:00 AM AMBULATORY - NONE [facility] Aug 29, 2024 10:30 AM AMBULATORY - NONE [facility] Aug 29, 2024 11:15 AM AMBULATORY - SURGERY [facility] Oct 23, 2024 01:00 PM AMBULATORY - MEDICINE [facility] Oct 23, 2024 01:01 PM AMBULATORY - NONE [facility] Active, Pending, and Scheduled Orders This section includes a listing of several types of active, pending, and scheduled orders, including clinic medications orders, diagnostic test orders, procedure orders and consult orders; where the start date of the order is 45 days before the date of the Encounter or 45 days after the date of theEncounter. The data comes from all [facility]. 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 Ordering Provider: KAREEM CERNA Report Released Date/Time: Jun 07, 2024 04:57 PM Reporting Lab: [facility] [address] [facility] [address] Performing Lab: [facility] [address] [facility] [address] URINE COLOR Light-Yellow NOT DEFINED SPECIFIC GRAVITY [...] 2024 03:55 PM CURRENT SMOKER [facility] > 1 [address]ESS THAN [address] [facility] Feb 21, 2024 10:15 AM VA-TOBACCO USE ADVICE [facility] Feb 21, 2024 10:15 AM VA-TOBACCO USE GLASS BEVELER NO [facility] Feb 21, 2024 [...] DIRECTIVE DISCUSSION PURNIMA ROJAS [facility] Pathology Reports: +/- 30 days of [...] comes from all [place] treatment facilities. Date/Time Pathology Report Provider Source Jun 07, 2024 05:30 PM LR MICROBIOLOGY RE PORT: Reporting Lab: [facility] [CLIA# [id number]] [address] [place] [address] Accession [UID]: [id number] [[id number]] Received: Jun 07, 2024@18:38 Collection sample: URINE CLEAN CATCH Collection date: Jun 07, 2024 17:30 Site/Specimen: URINE Provider: TODD CERNA Test(s) ordered: CULTURE,URINE CLEAN CATCH..... completed: Jun 10, 2024 12:19 * BACTERIOLOGY FINAL REPORT => Jun 12, 2024 11:34 TECH CODE: [id number] CULTURE RESULTS: 1. ENTEROCOCCUS FAECALIS - Quantity: [...] Performed By: [facility] [CLIA# [id number]] [address] [place] [address] [facility] Encounter Notes: All associated encounter notes This section contains the clinical notes associated to the Encounter. Date/Time Encounter Note(s) Provider Source Jun 26, 2024 09:34 AM CAREGIVER CERTIFIC ATE: LOCAL TITLE: [facility] PCAFC ASSESSMENT STANDARD TITLE: CAREGIVER CERTIFICATE DATE OF NOTE: JUN 26, 2024@09:34 ENTRY DATE: JUN 26, 2024@09:35:23 AUTHOR: ESTRELLITA CHINO COSIGNER: URGENCY: STATUS: COMPLETED Program of Comprehensive Assistance for Family Caregivers [place] Assessment The Program of Comprehensive Assistance for Family Caregivers (PCAFC) provides services and additional benefits to designated and approved Family Caregivers of eligible Veterans who incurred or aggravated a serious injury in the line of duty and is for individuals in need of personal care services for a minimum of six continuous months based on any one of the following: (i) An inability to perform an activity of daily living; or (ii) A need for supervision, protection, or instruction. In addition to other eligibility requirements, the PCAFC must also be found to be in the best interest of the individual in order to participate in the program. Date of assessment: 06/26/2024 Time spent in session: 60 Identified the using full name and the following other barillas identifier(s): Full name: GALINA LOYD JR Full SSN: [id number] Date of : Sep The interview was conducted using the telephone. Reviewed limits of confidentiality with the and caregiver/applicant(s). Brief description of why the Lorraine and caregiver/applicant(s) are applying to or participating in the program: does all his care. CURRENT LIVING SITUATION The following live in the Lorraine's household: Name: Kinue Age: 76 Relationship: spouse Special needs: can't drive The does not provide care for anyone in the household. The does not participate in care of the home or property. The does not drive independently. When did Lorraine last drive: 2019 Stroke Additional information: He gave up driving in 2020 following stroke. EMPLOYMENT HISTORY The Lorraine is not currently employed. When was last employed? 1999, Retired Job challenges the has shared and how the and caregiver respond to the challenges: Trouble following directions. EDUCATION HISTORY The has barriers to education. Details of barriers to education: stroke The is not attending school. The is or wishes to pursue enrollment: No SOCIAL HISTORY What does the Lorraine's typical day look like? 8am gets up with using furniture, uses a walker and with CG help goes to bathroom. Empty catheter. Back to bed and watches UTube. Last 6 weeks has lost 18 lbs., he doesn't eat. No appetite. 13th week of wound care. Wound on but is healing. Daughter doing shower with him. Once a week shower sometime during the day. Daughter also takes him to the doctor. What does the do for leisure/relaxation? You Tube Videos CURRENT PROVIDERS The [place] is currently receiving [place] Primary Care or [place] Care in the [facility] Primary Care. Provider's name: Dr. Kyra Gutierrez The is currently receiving [place] specialty care. Provider's name: Wound care, Urologist, Dr. Roberson, Dr. Wong in Vascular, Prostate Cancer at [facility] for Lymphoma, [place] and [place] at for Oncology The is not currently receiving [place] Mental Health or Substance Use treatment. The [place]raine is not currently receiving care outside of [place] other than they said. MEDICAL HISTORY Significant past medical history/treatment: See problem List Any unaddressed medical concerns: No The does not have chronic pain. The does not have a typical exercise/activity routine. The Lorraine does not report concerns regarding memory and/or cognition. The Lorraine has had formal testing related to memory/cognition. Details: Doesn't remember name of tests and doesn't know results which he was frustrated with. MENTAL HEALTH/SUBSTANCE USE HISTORY Significant mental health/substance use history/treatment: He said no and then that he hasn't drank for over two years. Any unaddressed mental or emotional health concerns: No PHQ-2 A PHQ-2 screen was performed. The score was 0 which is a negative screen for depression. Over the past two weeks, how often have you been bothered by the following problems? 1. Little interest or pleasure in doing things Not at all 2. Feeling down, depressed, or hopeless Not at all The reports that there are no current or past concerns regarding IPV domestic violence or safety. The reports currently feeling safe in their home. Current alcohol use: Not at all Current substance use: Not At All Current tobacco use: Every day Details of use: smokes about a pack a day. has access to opioids: No Other addictive behaviors (i.e. gambling, sex, isa, etc.): Not at all The is not currently receiving [place] Alcohol/Substance Abuse treatment. The is not interested in a referral for [place] Alcohol/Substance Abuse treatment at this time. has access to firearms: Yes Firearm safety discussed with : Yes Gunlock offered to : Yes The Lorraine was offered information on the 's Crisis Line, including contact number: [address] for [employer] and/or [employer] [phone] LEGAL/FINANCIAL HISTORY The Lorraine does not report any current legal concerns. The does not report any current personal financial concerns. CURRENT GOALS 's stated overall functional goals: Hopes to recover from illnesses. He says he is not interested in Hospice as to him it means Doctors giving up on him. provided education around purpose and goals of HOSPICE. How does the Lorraine report that the caregiver supports the Lorraine's overall goals? She does. However he was irritable and cranky anytime his corrected him. He was not a good historian. SUPPORT SERVICES The is currently receiving home care services. Agency name, hours, and services provided: Wound care is three-five hrs. a week. Support services currently used:* Homemaker/Home Health Aide Number of hours per week: 3-5 Enrolled: 6+ months ago Personal Care Services provided (please be specific): No personal care, they privately pay for housekeeping one day a week. Discussion about [place] Personal Care Services and [facility] enrollment/participation: Not applicable = CAREGIVER INPUT SECTION = Caregiver's understanding of the Program of Comprehensive Assistance for caregiver/applicant(s) and why they decided to apply: To support her to keep Lorraine at home. Caregiver's description of 's self-care: Can't do anything for himself. Caregiver's description of how the has responded to their self-care challenges and what is/is not working: Sometimes doesn't appreciate assistance. Feels like she is telling him what to do. He resents her input around meds, exercise, showering. Type of assistance that the caregiver provides to address 's needs in completing activities of daily living: Hands on assistance with ADL's, Sleeps downstairs as he can't do stairs anymore. Had a brain aneurism. Type of assistance caregiver provides due to neurological, cognitive or mental health needs: Redirection, distraction, reminders. Caregiver's description of how potato chip fryer and meal planning are performed, who performs the duties, and any established routines: She takes care of it with one day a week out of pocket director of home economics. needs assistance with the potato chip fryer and/or family activities that he/she completes. Details: He doesn't participate in activities or chores. The does not drive independently. The caregiver attends the 's medical and/or mental health appointments with him/her. Details: She accompanies him to appointments. Caregiver's knowledge and understanding of the treatment recommendations for the Lorraine: Some understanding. She also had some misconceptions about HOSPICE. The caregiver does not report any concerns for the Lorraine's safety. Type of preparations the caregiver needs to complete for the Lorraine in their absence: He is never left alone since his stroke 2020. The Caregiver does not assist the with any additional concerns and/or additional care needs. SUMMARY OF VISIT: Different responses at different times describing his own level of need for assistance with ADL's. He is quite irritable, unhappy and possibly grieving his condition. He said no one has told him what Hospice is or what any of his diagnosis mean. We talked about the limits SW has to give him diagnosis and testing results. Encouraged him to reach out to his PCP and Dr. Child who he seems to like very much. Reviewed problem list with him. 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 He was appreciative of the information and said he would reach out to Dr. Child. [facility] staff will coordinate the following: [place] Functional Assessment Instrument Caregiver/applicant(s) assessment /es/ MODE Holguin [facility] [place] Advocate Signed: 06/27/2024 13:44 Receipt Acknowledged By: 06/30/2024 06:18 /es/ AMADOU Elliott, RN Registered Nurse ERINN CHINO [facility]
--- OUTSIDE RECORDS SUMMARY | 2024-07-07 22:29 | XMS_ITS ---
Author Name [facility] [place] Organization [place] Address [address] [place] [address] Care Team Providers Care Engagement Lead Name Role Phone KYRA VELASQUEZ Primary Care [...] Ervin [facility] (WNR) MEDICARE [facility](W NR) * Aug 23, 2023 [id number] ANNALISA EDUARDO ITE PATIENT [facility] MCR (WNR) MEDICARE ADVANTAGE [facility] (WNR) Aug 23, 2020 [id number] [phone] ANNALISA EDUARDO ITE PATIENT [facility] (WNR) MEDICARE ADVANTAGE [facility](W NR) Aug 23, 2012 [id number] ANNALISA EDUARDO ITJannette PATIENT Selected Encounter This section includes the information on record at [place] for the Encounter. Date/Time Encounter Type Encounter Description Reason Pro vider Source Jun 19, 2024 09:45 AM Outpatient Encounter ADMIN PAT ACTIVTIES (MASNONCT) [...] RI [facility] Jun 21, 2024 12:30 PM AMBULATORY - SURGERY [facility] Jul 11, 2024 10:00 AM AMBULATORY - SURGERY [facility] Jul 11, 2024 10:01 AM [facility] Jul 24, 2024 11:00 AM [facility]ORY - [place] [facility] Jul 27, 2024 10:00 AM AMBULATORY - NONE [place] [facility] Aug 29, 2024 10:30 AM AMBULATORY - NONE [place] [facility] Aug 29, 2024 11:15 AM AMBULATORY - SURGERY [place] [facility] Oct 23, 2024 01:00 PM AMBULATORY - MEDICINE [facility] Oct 23, 2024 01:01 PM AMBULATORY - NONE [place] [facility] Active, Pending, and Scheduled Orders This section includes a listing of several types of active, pending, and scheduled orders, including clinic medications orders, diagnostic test orders, procedure orders and consult orders; where the start date of the order is 45 days before the date of the Encounter or 45 days after the date of theEncounter. The data comes from all [facility]. 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 Cons News Analyst's Choice [facility] Lab Results: [...] Reporting Lab: [facility] [address] [facility] [address] Performing Lab: [facility] [address] [facility] [address] URINE COLOR Light-Yellow NOT DEFINED SPECIFIC GRAVITY [...] LESS THAN 30 YEARS [facility] Feb 21, 2024 10:15 AM VA-TOBACCO USE ADVICE [facility] Feb 21, 2024 10:15 AM VA-TOBACCO USE SMUDGER NO [facility] Feb 21, 2024 10:15 AM VA-TOBACCO USE MED NO [facility] Feb 21, 2024 10:15 AM VA-TOBACCO USE WI 30 MIN OF WAKEUP [facility] Feb 21, 2024 10:15 AM VA-TOBACCO USER EVERY DAY [facility] Jul 17, 2021 02:27 PM CURRENT SMOKER [facility] Jannette [facility] Jul 01, 2021 08:55 PM VA-VAAES TOBACCO U SE CURRENT NRT DECLINE [facility] Jul 01, 2021 02:41 PM CURRENT SMOKER [facility] Jannette [facility] Dec 08, 2020 [...] DIRECTIVE DISCUSSION PURNIMA ROJAS [facility] Pathology Reports: +/- 30 days [...] PM LR MICROBIOLOGY RE PORT: Reporting Lab: [facility] [CLIA# [id number]] [address] [place] [address] Accession [UID]: [id number] [[id number]] Received: Jun 07, 2024@18:38 Collection sample: URINE CLEAN CATCH Collection date: Jun 07, 2024 17:30 Site/Specimen: URINE Provider: TODD CERNA Test(s) ordered: CULTURE,URINE CLEAN CATCH..... completed: Jun 10, 2024 12:19 * BACTERIOLOGY FINAL REPORT => Jun 12, 2024 11:34 TECH CODE: [id number] CULTURE RESULTS: 1. ENTEROCOCCUS FAECALIS - Quantity: [...] Laboratory: Bacteriology Report Performed By: SONYA PINON [facility] [CLIA# [id number]] [address] [place] [address] SONYA GAYLE Tobi [facility] Encounter Notes: All associated encounter notes This section contains the clinical notes associated to the Encounter. Date/Time Encounter Note(s) Provider Source Jun 19, 2024 09:45 AM CAREGIVER CERTIFIC ATE: LOCAL TITLE: [facility] ADMINISTRATIVE NOTE STANDARD TITLE: CAREGIVER CERTIFICATE DATE OF NOTE: JUN 19, 2024@09:45 ENTRY DATE: JUN 19, 2024@09:45:36 AUTHOR: ADENIKE REYNOLDS EXP COSIGNER: URGENCY: STATUS: COMPLETED [facility] ADMINISTRATIVE NOTE Has ADDENDA PCAFC Receipt of New 10-10CG Application (5103 Notice) was mailed to Galina Eduardo and 's authorized circulation representative by USPS mail. Enclosures noted below: [facility] [place] Contact Information Sheet 's Authorized Survival Equipment Repairer: [employer] [address] [place] [address] The letter is attached to this note. /vivian/ ADENIKE REYNOLDS ALMOND PASTE MOLDER Signed: 06/19/2024 09:46 06/19/2024 ADDENDUM STATUS: COMPLETED PCAFC Receipt of New 10-10CG Application (5103 Notice) was mailed to Darrel Eduardo and 's authorized circulation representative by USPS mail. Enclosures noted below: [facility] [place] Contact Information Sheet EFT Information letter [facility] Direct Deposit Enrollment Guide [place]'s Authorized Survival Equipment Repairer: [employer] [address] [place] [address] The letter is attached to this note. /vivian/ ADENIKE REYNOLDS [employer]MOND PASTE MOLDER Signed: 06/19/2024 09:50 ADENIKE REYNOLDS [facility]
--- OUTSIDE RECORDS SUMMARY | 2024-07-07 22:30 | XMS_ITS | Encounter Summary ---
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 (WNR) MEDICARE [facility] (WNR) Aug 23, 2020 [id number] [phone] ANNALISA LOYD ITE PATIENT [facility] (WNR) MEDICARE ADVANTAGE MCR(W NR) Aug 23, 2012 [id number] ANNALISA LOYD ITE PATIENT Selected Encounter This section includes the information on record at [place] for the Encounter. Date/Time Encounter Type Encounter Description Reason Pro vider Source Jul 04, 2024 02:27 PM Outpatient Encounter TELEPHONE TRIAGE IHE Encounter Template Text not used by [place] Plan of Treatment: Future Appointments (+ 6 months) and Future Tests (+/- 45 days) The Plan of Treatment section includes future care activities for the patient [facility] [place] [facility] This section includes future appointments [...] 11, 2024 10:01 AM AMBULATORY - SURGERY [facility] Jul 24, 2024 11:00 AM AMBULATORY - SURGERY [facility] Jul 27, 2024 10:00 AM AMBULATORY - NONE [facility] Aug 29, 2024 10:30 AM AMBULATORY - NONE [facility] Aug 29, 2024 11:15 AM AMBULATORY - SURGERY [facility] Oct 23, 2024 01:00 PM AMBULATORY - MEDICINE [facility] Oct 23, 2024 01:01 PM AMBULATORY - NONE [facility] Active, Pending, and Scheduled Orders This section includes a listing of several types of active, pending, and scheduled orders, including clinic medications orders, diagnostic test orders, procedure orders and consult orders; where the start date of the order is 45 days before the date of the Encounter or 45 days after the date of theEncounter. The data comes from all [facility]. 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 Ordering Provider: KAREEM CERNA Report Released Date/Time: Jun 07, 2024 04:57 PM Reporting Lab: [facility] [address] [facility] [address] Performing Lab: [facility] [address] [facility] [address] URINE COLOR Light-Yellow NOT DEFINED SPECIFIC GRAVITY [...] 07, 2024 03:55 PM CURRENT SMOKER WHIT Jarrell [facility] Tobacco Use History This section includes a history of the smoking, or tobacco-related health factors, that were collected on or before the date of the Encounter. The data comes from the [place] facility where the Encounter took place. 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 The data comes from all [facility]. Date Advance Directives Provider Source Nov 18, 2017 ADVANCE DIRECTIVE RADHA FERNANDEZ [facility] Jul 08, 2017 ADVANCE DIRECTIVE DISCUSSION PURNIMA ROJAS [facility] Pathology Reports: +/- 30 [...] PM LR MICROBIOLOGY RE PORT: Reporting Lab: [facility] [CLIA# [id number]] [address] [place] [address] Accession [UID]: [id number] [[id number]] Received: Jun 07, 2024@18:38 Collection sample: URINE CLEAN CATCH Collection date: Jun 07, 2024 17:30 Site/Specimen: URINE Provider: TODD CERNA Test(s) ordered: CULTURE,URINE CLEAN CATCH..... completed: Jun 10, 2024 12:19 * BACTERIOLOGY FINAL REPORT => Jun 12, 2024 11:34 TECH CODE: [id number] CULTURE RESULTS: 1. ENTEROCOCCUS FAECALIS - Quantity: [...] -=--=--=--=--=-- Performing Laboratory: Bacteriology Report Performed By: [facility] [CLIA# [id number]] [address] [place] [address] [facility] Encounter Notes: All associated encounter notes This section contains the clinical notes associated to the Encounter. Date/Time Encounter Note(s) Provider Source Jul 04, 2024 02:27 PM RN PROGRESS NOTE: LOCAL TITLE: CCC: CLINICAL TRIAGE STANDARD TITLE: RN PROGRESS NOTE DATE OF NOTE: JUL 04, 2024@14:27:20 ENTRY DATE: JUL 04, 2024@14:27:20 AUTHOR: BENITO DESIR EXP COSIGNER: URGENCY: STATUS: COMPLETED CCC: CLINICAL TRIAGE Has ADDENDA Patient Demographics Patient Name: GALINA LOYD JR Patient Primary Address: [address] [place] [id number] Patient Primary Phone: [phone] Patient : 1945 Patient Age: 78 Current Location: home Call Back Number: in chart Caller/Recipient Relation to Patient: Other If Other Describe Relation to Patient: [facility] Caller Name: Ramila Emergency Contact: MARIE LOYD Nursing Plan and Disposition Other course(s) of action Generated msg to PACT/Provider Nurse Summary Nurse Summary: N went to see today to do a dressing change for wound on coccyx. She states that wound is 2cm larger than 1 week ago and wound bed has yellow adherent sloth, where it was beginning to granulate at last dressing change. N would like to know if orders need to be changed due to worsening appearance of wound. ALAN Mcgrath may be reached at [phone], ext [phone], to discuss changes and to receive order changes if needed. Non-Triage/Non-Symptom Call Generated msg to PACT/Provider-NonTriage Clinical Contact Center Codes Clinic/Location: V1 [facility] PHONE [facility] RN IMPORTANT: This note was created by [facility] Clinical Contact Center staff. Please do not alert the staff member by adding them as a signer for future communications. Alerts are not monitored by this user. /vivian/ BENITO DESIR Signed: 07/04/2024 14:27 Receipt Acknowledged By: 07/05/2024 08:07 /es/ JENIFER SHANE LPN 07/05/2024 10:27 /es/ OJ GIL RN 07/05/2024 ADDENDUM STATUS: COMPLETED Patient has a wound appt 07/11/2024 /vivian/ JENIFER SHANE LPN Signed: 07/05/2024 08:06 07/05/2024 ADDENDUM STATUS: COMPLETED contact with Ramila- informed that vet has appt with wound nurse next week- Novjarrell 19- wound eval/ treatment plan at that time. /vivian/ OJ GIL RN Signed: 07/05/2024 10:28 BENITO DESIR [facility]
--- OUTSIDE RECORDS SUMMARY | 2024-07-07 22:30 | XMS_ITS | Encounter Summary ---
Author Name [facility] [place] [facility] [place] Address [address] [place] [address] Care Team Providers Care Billet Inspector Name Role Phone KYRA VELASQUEZ Primary [...] Ervin's Name Patient's Relationship to Policy Ervin [facility] (WNR) MEDICARE ADVANTAGE [facility](W NR) * Aug 23, 2023 [id number] [phone] ANNALISA EDUARDO ITE PATIENT [facility] (WNR) MEDICARE ADVANTAGE [facility] (WNR) Aug 23, 2020 [id number] [phone] ANNALISA EDUARDO ITE PATIENT [facility] (WNR) MEDICARE ADVANTAGE [facility](W NR) Aug 23, 2012 [id number] ANNALISA EDUARDO PATIENT Selected Encounter This section includes the information on record at [place] for the Encounter. Date/Time Encounter Type Encounter Description Reason Provider Source Jun 30, 2024 06:23 AM [facility] ASSMT/REASSESSM ENT CAREGIVER SUPPORT PROGRAM ICD-10-CM Z02.9 Encounter for administrative examinations, unspecified LIVCASSIDY OJEDA IHJannette Encounter Template Text not used by [place] Assessments - Encounter Diagnoses This section includes the primary and secondary diagnoses documented for the Encounter. Date/Time Primary/Secondary Diagnosis Diagnosis Name Provider Source Jun 30, 2024 07:50 AM PRIMARY Encounter for administrative examinations, unspecified CASSIDY PECK [facility] Plan of Treatment: Future Appointments (+ 6 months) and Future Tests (+/- 45 days) The Plan of Treatment section includes future care activities for the patient from all [place] [facility]. This section includes future appointments and future orders which are active, pending or scheduled. Future Appointments This section includes appointments that were scheduled to occur 6 months from the date of the Encounter, up to a maximum of 20 appointments. The data comes from all [facility] facilities. Appointment Date/Time Appointment Type Appointme nt Facility Name Jul 11, 2024 10:00 AM AMBULATORY - SURGERY [facility] Jul 11, 2024 10:01 AM AMBULATORY - SURGERY [facility] Jul 24, 2024 11:00 AM AMBULATORY - SURGERY [facility] Jul 27, 2024 10:00 AM AMBULATORY - NONE [facility] [place] [facility] Aug 29, 2024 10:30 AM AMBULATORY - NONE [facility] [place] [facility] Aug 29, 2024 11:15 AM AMBULATORY - SURGERY [facility] Oct 23, 2024 01:00 PM AMBULATORY - MEDICINE [facility] Oct 23, 2024 01:01 PM AMBULATORY - NONE [place] [place] [facility] Active, Pending, and Scheduled Orders This section includes a listing of several types of active, pending, and scheduled orders, including clinic medications orders, diagnostic test orders, procedure orders and consult orders; where the start date of the order is 45 days before the date of the Encounter or 45 days after the date of theEncounter. The data comes from all [facility]. 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 Date/Time Pathology Report Provider Source Jun 07, 2024 05:30 PM LR MICROBIOLOGY RE PORT: Reporting Lab: [facility] [CLIA# [id number]] [address] [place] [address] Accession [UID]: [id number] [[id number]] Received: Jun 07, 2024@18:38 Collection sample: URINE CLEAN CATCH Collection date: Jun 07, 2024 17:30 Site/Specimen: URINE Provider: TODD CERNA Test(s) ordered: CULTURE,URINE CLEAN CATCH..... completed: Jun 10, 2024 12:19 * BACTERIOLOGY FINAL REPORT => Jun 12, 2024 11:34 TECH CODE: [id number] CULTURE RESULTS: 1. ENTEROCOCCUS FAECALIS - Quantity: [...] Bacteriology Report Performed By: [facility] [CLIA# [id number]] [address] [place] [address] [facility] Encounter Notes: All associated encounter notes This section contains the clinical notes associated to the Encounter. Date/Time Encounter Note(s) Provider Source Jun 30, 2024 06:23 AM CAREGIVER CERTIFIC ATE: LOCAL TITLE: [facility] FUNCTIONAL ASSESSMENT INSTRUMENT STANDARD TITLE: CAREGIVER CERTIFICATE DATE OF NOTE: JUN 30, 2024@06:23 ENTRY DATE: JUN 30, 2024@06:23:20 AUTHOR: CASSIDY PECK COSIGNER: URGENCY: STATUS: COMPLETED FUNCTIONAL ASSESSMENT INSTRUMENT The Program of Comprehensive Assistance for Family Caregivers (PCAFC) provides services and additional benefits to approved and designated Family Caregivers of eligible Veterans or service members who are in need of personal care services for a minimum of six continuous months based on any one of the following: - An inability to perform one or more activities of daily living; - A need for supervision or protection based on symptoms or residuals of neurological or other impairment or injury; or - A need for regular or extensive instruction or supervision without which the ability of the to function in daily life would be seriously impaired. Assessment of the need for personal care services is just one piece of the overall application process. The Functional Assessment Instrument (VFAI) captures the or information services tech's functional needs, as they relate to the requirements for PCAFC. The assessment should only be used with Veterans or service members who have applied to or are participating in PCAFC and a consult has been placed for this assessment by Caregiver Support Program Staff. The author completing this assessment must be in compliance with all required Caregiver Support Program and VA trainings. Method of contact: Telehealth/ VA Video Connect Modality of Care: Video Telehealth Patient Contact Details: Best contact number for backup/emergency communication with patient: Home: Cell: [phone] Patient Location/Surroundings During Visit: Patient location during visit: Home [address], [place] [address] Patient confirms location is safe and private for visit. Telehealth Disclosure: Visit conducted by synchronous telehealth. Patient verbal consent obtained. Location/emergency number confirmed. Environment surveyed and all participants identified. Virtual conference room locked. VFAI: PART A EATING (1) Eating: Set-up or clean-up assistance Defined as: The ability to use suitable utensils to bring food and/or liquid to the mouth and swallow food and/or liquid once the meal is placed before the person. Comments/additional information: [place] states he needs assistance cutting up his food recently due to weakness. He states he's drinking coffee and drinks out of a regular mug with no problems during the interview process. GROOMING (2a) Oral hygiene: Independent Defined as: The ability to use suitable items to clean teeth. [Dentures (if applicable): the ability to insert and remove dentures into and from the mouth, and manage denture soaking and rinsing with use of equipment.] (2b) Wash upper body: Set-up or clean-up assistance Defined as: The ability to wash, rinse, and dry the face, hands, chest, and arms while sitting in a chair or bed. Comments/additional information: states he can brush his own teeth independently and at a time he chooses. He states he can find all the equipment and load his toothbrush with toothpaste without assistance. He says he leans on the sink with one hand and brushes with the other. states that on days he doesn't take a shower-usually 5 days per week, he can innovation manager front of the sink and using a washcloth that the CG has provided can wash himself up above the waist independently. He says he uses his walker which the caregiver will place so that he can easily catch himself if he loses balance. BATHING (3) Shower/bathe self: Partial/moderate assistance Defined as: The ability to bathe self, including washing, rinsing, and drying self. Does not include transferring in/out of tub/shower. Comments/additional information: [place] states he has a tub/shower combination with a handheld shower nozzle, grab bars, and a shower chair. states he once seated in shower with water that CG has adjusted for him, he can wash most of his body, however, he needs to stand to rinse off and hold on both grab bars to remain standing. Caregiver will then wash his buttocks and back and then rinse him off. Caregiver assists out of the tub and dries him off while he stands holding onto the wall and sink. DRESSING AND UNDRESSING (4a) Upper body dressing: Partial/moderate assistance Defined as: The ability to dress and undress above the waist, including fasteners (if applicable). (4b) Lower body dressing: Substantial/maximal assistance Defined as: The ability to dress and undress below the waist, including fasteners; does not include footwear. (4c) Putting on/taking off footwear: Partial/moderate assistance Defined as: The ability to put on and take off socks and shoes, or other footwear that is appropriate for safe mobility, including fasteners (if applicable). Comments/additional information: states he usually wears a sweatshirt and sweatpants. He puts his shirt on over his head but needs assistance pulling it down in the back. He then stands holding onto grab bars and lifts his legs one at a time while caregiver threads underwear and sweatpants over his feet and around cathether bag. Caregiver will pullup his pants/underwear while holds on to grab bars to maintain his balance. [place] will then sit down and caregiver will bring put on his socks and bring his crocs in front of him that he can slide on himself. TOILETING (5) Toileting hygiene: Partial/moderate assistance Defined as: The ability to maintain perineal/menstrual hygiene and adjust clothes before and after voiding or having a bowel movement. If managing an ostomy, include wiping the opening but not managing equipment. Comments/additional information: has an indwelling giraldo catheter. Per 's daughter, He uses a leg bag for both night and day elimination that is changed daily by CG. He has a new catheter inserted monthly.[place] states he wears depends daily but only has accidents occassionally. CG states she helps him to clean up after a BM. CG states she has to apply cream daily [place]'s groin and penis due to a longstanding yeast infection. (see 06/21/24 Urology Note) PROSTHETICS (6) Prosthetics (Use of Assistive Devices): Not applicable - does not use prosthetics or assistive devices Defined as: The ability to adjust special prosthetic or orthopedic appliances. The adjustment of appliances that any person (with or without a disability) would need assistance with should not be scored (for example, supports, belts, lacing at back, etc.). Comments/additional information: [place] denies using any types of prosthetic device. MOBILITY (POSITIONING/TRANSFERS) (7a) Roll left and right: Independent Defined as: The ability to roll from lying on back to left and right side, and return to lying on back. (7b) Sit to lying: Independent Defined as: The ability to move from sitting on side of bed to lying flat on the bed. (7c) Lying to sitting on side of bed: Independent Defined as: The ability to move from lying on the back to sitting on the side of the bed with feet flat on the floor and with no back support. (7d) Sit to stand: Supervision or touching assistance Defined as: The ability to come to a standing position from sitting in a chair, wheelchair, or on the side of the bed. (7e) Chair/iqh-dd-ctqku transfer: Supervision or touching assistance Defined as: The ability to transfer to and from a bed to a chair (or wheelchair). (7f) Toilet transfer: Supervision or touching assistance Defined as: The ability to get on and off a toilet or commode. Comments/additional information: CG states she holds onto 's sweatshirt to provide standby assist for balance as [place] transfers to bed/chair or toilet. states he can sit on the side of his bed and get in and out of bed without assistance. CG states she wakes up to assist with an SBA if he's getting out of bed at night or in the a.m. MOBILITY (WALKING, MANUAL WHEELCHAIR, MOTORIZED WHEELCHAIR/SCOOTER) (8) Mobility: Person walks WALKING (9a) Walk 10 feet: Supervision or touching assistance Defined as: Once standing, the ability to walk at least 10 feet in a room, corridor, or similar space. (9b) Walk 50 feet with two turns: Dependent Defined as: Once standing, the ability to walk at least 50 feet and make two turns. (9c) Walk 150 feet: Dependent Defined as: Once standing, the ability to walk at least 150 feet in a corridor or similar space. (9d) Walk 10 feet on uneven surfaces: Supervision or touching assistance Defined as: The ability to walk 10 feet on uneven or sloping surfaces (indoor or outdoor) such as turf or gravel. (9e) 1 step (curb): Supervision or touching assistance Defined as: The ability to go up and down a curb and/or up and down one step. (9f) 4 steps: Supervision or touching assistance Defined as: The ability to go up and down four steps with or without a rail. (9g) 12 steps: Person does not usually do this activity Defined as: The ability to go up and down 12 steps with or without a rail. (9h) Picking up object: Dependent Defined as: The ability to bend/stoop from a standing position to picking crew supervisor a small object, such as a spoon, from the floor. (9i) Walk indoors: Supervision or touching assistance Defined as: The ability to walk from room to room, around furniture and other obstacles. (9j) Carry something in both hands: Dependent Defined as: The ability to carry something in both hands while walking indoors (i.e., several dishes, light laundry basket, tray with food). (9k) Walk for 15 minutes: Dependent Defined as: The ability to walk without stopping or resting (i.e., through a department store, supermarket). (9l) Walk across a street: Person does not usually do this activity Defined as: The ability to cross a street before light turns red. Comments/additional information: uses a two wheeled walker with sliders in the front. [place] states he can walk around his home and get out to his car with CG holding onto him and providing balance with an SBA. He staes he can get up over a curb and manage 2-3 steps to get out of his home. He states he doesn't climb a flight of stairs anymore. He says he asks caregiver to p/u an item that he drops on the floor, such as the remote or a spoon. He cannot carry anything in both arms requiring caregiver to do the carrying for him due to using a walker or furniture for support. [place] states he uses a w/c requiring cg to push, due to fatigue, if he goes anywhere requiring more than a few feet (15-20) of walking. VFAI: PART B MEDICATION MANAGEMENT (1a) Does the person take any medication(s)? Yes (1b) Does the person need assistance with medication management? Needs visual or verbal reminders Comments/additional information: Caregiver orders medications over the phone and hands his medications to take along with a glass of water. SELF-PRESERVATION AND SUPERVISION (2) Does the person have the judgment and physical ability to cope, make appropriate decisions and take action in a changing environment or a potentially harmful situation? Independent (3) Is this person at risk of self-neglect? No (4) Person has the following risk factors: Not applicable (5) Is this person at risk of neglect, abuse, or exploitation by another person? No (6) What type of support does the person need in the home to remain safe, such as assistance or supervision with activities that require remembering, decision-making, or judgment? The person can be left alone without anyone checking in. (7) What type of support does the person need away from home to remain safe, such as assistance or supervision with activities that require remembering, decision-making, or judgment? The person does not need help going anywhere. Comments/additional information: describes how he would get out of the house in an emergency if he were alonge and what he would do if caregiver was ill. (He would sit down on the stairs and slide down them, bring phone, call 911.) He knows who he would call if he needed assistance (daughter) and caregiver couldn't provide it. PROTECTION (8a) Delusions/Hallucinations: Person engages in markedly inappropriate behavior that affects his/her/their daily functioning and social interactions. Behavior characterized by a radical change in personality and a distorted or diminished sense of reality. No (9a) Agitation: Person has a tendency, or would without an intervention, to suddenly or quickly become upset or violent. No (10a) Impulsivity: Person has a propensity, or would without an intervention, for sudden or spontaneous decisions or actions. No (11a) Wandering: Person will, or would without an intervention, leave an area or group without telling others or depart from the supervision of others unexpectedly, resulting in increased vulnerability. No Comments/additional information: denies any of the above behaviors and caregiver agrees with 's statement. INSTRUCTION (12) Person requires stand-by cueing, supervision, or step by step instructions from a caregiver in order to function in daily life: No (13) Person requires CONTINUOUS stand-by cueing, supervision, or step by step instructions from a caregiver in order to function in daily life: No Comments/additional information: [place] states he understands how to accomplish his ADL/IADL's but lacks the strength and coordination to complete them. SELF-DIRECTION (14) Can this person identify their own needs? Yes (15) Can this person provide and/or arrange for their health and safety? Yes Comments/additional information: describes how he would call someone if he needed help and caregiver was unable to assist. Mr. Eduardo is a 78 yo 100% [place] [facility] . This meeting is set up by his daughter with her computer. is joined by his /CG and his daughter. Both offer input during this interview. [place] identifies himself, gives home location and phone number. He drinks coffee and smokes continuously through this interview. He lights and relights cigarettes with his garnett room worker. Caregiver gets him additional coffee when he empties his cup. tires and leaves to lay down during interview and caregiver assists him to bed off camera. has multiple comorbidites including femur fx, cva 2019, sdh, history of seizures, nephrolithiasis, h/o bl ureteral stents s/p removal, htn, tobacco use, follicular lymphoma, AAA, thoracic aortic aneurysm, etoh dependence in remission and [place] has been certified for hospice for failure to thrive, but refuses to accept it yet. (see 06/19/24 Certification for hospice, Palliative CAre Note 06/20/24 ([facility], and C telephone note 06/28/24) He has lost significant weight over the last few months and is down to 90 lbs. per [facility]. which represent a 30# weight loss since 05/08/24([facility] Scheduling Note: 06/27/24)Caregivers state that doesn't have any appetite and continues to lose weight. Daughter states he smokes and drinks coffee and that is all he wants at this point. Caregiver/ states she tries to get him to eat but he will only take a few bites and then stops. Discussed the next steps in the application process and answered questions for both daughter and caregiver. Daughter has senior technical writer's contact info if they should have further questions. /vivian/ AMADOU Elliott, RN Registered Nurse Signed: 06/30/2024 07:51 CASSIDY PECK [facility]
--- OUTSIDE RECORDS SUMMARY | 2024-07-07 22:30 | XMS_ITS | Encounter Summary ---
Author Name [facility] [place] Address [address] [place] [address] Care Team Providers Care Production Dispatcher Name Role Phone RON KYRA Primary Care [...] Policy Ervin [facility] (WNR) MEDICARE [facility](W NR) * Aug 23, 2023 [id number] ANNALISA LOYD ITE PATIENT [facility] (WNR) MEDICARE ADVANTAGE [facility] (WNR) Aug 23, 2020 [id number] [phone] ANNALISA LOYD ITE PATIENT [facility] (WNR) MEDICARE ADVANTAGE [facility](W NR) Aug 23, 2012 [id number] ANNALISA LOYD ITJannette PATIENT Selected Encounter This section includes the information on record at [place] for the Encounter. Date/Time Encounter Type Encounter Description Reason Provider Source Jun 30, 2024 02:13 PM Outpatient Encounter TELEPHONE/REHAB AND SUPPORT ICD-10-CM I71.40 Abdominal aortic aneurysm, without rupture, unspecified MICUCCI,ELYSIA IHE Encounter Template Text not used by [place] Assessments - Encounter Diagnoses This section includes the primary and secondary diagnoses documented for the Encounter. Date/Time Primary/Secondary Diagnosis Diagnosis Name Provider Source Jun 30, 2024 02:13 PM PRIMARY Abdominal aortic aneurysm, without rupture, unspecified MICUCCI,ELYSIA [facility] Plan of Treatment: Future Appointments (+ 6 months) and Future Tests (+/- 45 days) The Plan of Treatment section includes future care activities for the patient from all [place] [facility]. This section includes future appointments and future orders which are active, pending or scheduled. Future Appointments This section includes appointments that were scheduled to occur 6 months from the date of the Encounter, up to a maximum of 20 appointments. The data comes from all [facility]. Appointment Date/Time Appointment Type Appointme nt Facility Name Jul 11, 2024 10:00 AM AMBULATORY - SURGERY [facility] Jul 11, 2024 10:01 AM AMBULATORY - SURGERY [facility] Jul 24, 2024 11:00 AM AMBULATORY - SURGERY [facility] Jul 27, 2024 10:00 AM AMBULATORY - NONE [place] JOELLE [facility] Aug 29, 2024 10:30 AM AMBULATORY - NONE [place] [facility] Aug 29, 2024 11:15 AM AMBULATORY - SURGERY [facility] Oct 23, 2024 01:00 PM AMBULATORY - MEDICINE [facility] Oct 23, 2024 01:01 PM AMBULATORY - NONE [place] JOELLE [facility] Active, Pending, and Scheduled Orders This section includes a listing of several types of active, pending, and scheduled orders, including clinic medications orders, diagnostic test orders, procedure orders and consult orders; where the start date of the order is 45 days before the date of the Encounter or 45 days after the date of theEncounter. The data comes from all [facility]. Test Date/Time Test Type Test Details Facility Name Jun 28, 2024 12:58 PM Consult Order PALLIATIVE CARE OUTPATIENT Cons Sawing And Assembly Supervisor's Choice [facility] Jul 06, 2024 07:22 AM Consult Order CSP PCAFC HOME-CARE ASSESSMENT OUTPT Cons [employer] Supervisor's Choice [facility] Jul 07, 2024 02:02 PM Consult Order OCCUPATION AL THERAPY OUTPATIENT Cons Sawing And Assembly Supervisor's Choice [facility] Lab Results: +/- [...] Reporting Lab: [facility] [address] [facility] [address] Performing Lab: [facility] [address] [facility] [address] URINE COLOR Light-Yellow NOT DEFINED SPECIFIC GRAVITY [...] May 14, 2022 09:30 AM VA-TOBACCO USE CHANGE MANAGEMENT ANALYST NO [facility] May 14, 2022 [...] December 28, 2018 11:23 AM VA-TOBACCO USE CHANGE MANAGEMENT ANALYST NO [facility] December 28, 2018 [...] 18, 2017 ADVANCE DIRECTIVE RADHA FERNANDEZ [facility] Jul 08, 2017 ADVANCE DIRECTIVE DISCUSSION PURNIMA ROJAS [facility] Pathology Reports: +/- [...] comes from all [place] treatment facilities. Date/Time Pathology Report Provider Source Jun 07, 2024 05:30 PM LR MICROBIOLOGY RE PORT: Reporting Lab: [facility] [CLIA# [id number]] [address] [place] [address] Accession [UID]: [id number] [[id number]] Received: Jun 07, 2024@18:38 Collection sample: URINE CLEAN CATCH Collection date: Jun 07, 2024 17:30 Site/Specimen: URINE Provider: TODD CERNA Test(s) ordered: CULTURE,URINE CLEAN CATCH..... completed: Jun 10, 2024 12:19 * BACTERIOLOGY FINAL REPORT => Jun 12, 2024 11:34 TECH CODE: [id number] CULTURE RESULTS: 1. ENTEROCOCCUS FAECALIS - Quantity: [...] Laboratory: Bacteriology Report Performed By: [facility] [CLIA# [id number]] [address] [place] [address] [facility] Encounter Notes: All associated encounter notes This section contains the clinical notes associated to the Encounter. Date/Time Encounter Note(s) Provider Source Jun 30, 2024 02:13 PM PHYSICAL THERAPY T ELEPHONE ENCOUNTER NOTE: LOCAL TITLE: Telephone Note/Physical Therapy STANDARD TITLE: PHYSICAL THERAPY TELEPHONE ENCOUNTER NOTE DATE OF NOTE: JUN 30, 2024@14:13 ENTRY DATE: JUN 30, 2024@14:13:28 AUTHOR: ELYSIA MILLER EXP COSIGNER: URGENCY: STATUS: COMPLETED Reason: egg crate Duration: 6 minutes Called the house hold to verify matress size: twin. Order: [facility] Convoluted Egg Crate Foam Mattress Pad Twin 4 Product #: [id number] /vivian/ ELYSIA MILLER Physical Therapist, licenced in [place] Signed: 06/30/2024 14:[address] [facility]
--- OUTSIDE RECORDS SUMMARY | 2024-07-07 22:30 | XMS_ITS | Encounter Summary ---
Author Name [place] Address [address] [place] [address] Care Team Providers Care Construction Person Name Role Phone KYRA VELASQUEZ Primary Care [...] [facility] (WNR) MEDICARE [facility](W NR) * Aug 23, 2023 [id number] ANNALISA LOYD ITE PATIENT [facility] (WNR) MEDICARE ADVANTAGE [facility] (WNR) Aug 23, 2020 [id number] [phone] ANNALISA LOYD ITE PATIENT [facility] (WNR) MEDICARE ADVANTAGE [facility](W NR) Aug 23, 2012 [id number] ANNALISA LOYD ITJannette PATIENT Selected Encounter This section includes the information on record at [place] for the Encounter. Date/Time Encounter Type Encounter Description Reason Pro vider Source Jul 05, 2024 02:49 PM Outpatient Encounter ADMIN PAT ACTIVTIES (MASNONCT) [...] 11, 2024 10:01 AM AMBULATORY - SURGERY [facility] Jul 24, 2024 11:00 AM AMBULATORY - SURGERY [facility] Jul 27, 2024 10:00 AM AMBULATORY - NONE [place] [facility] Aug 29, 2024 10:30 AM AMBULATORY - NONE [place]LE T [facility] Aug 29, 2024 11:15 AM AMBULATORY - SURGERY [facility] Oct 23, 2024 01:00 PM AMBULATORY - MEDICINE [facility] Oct 23, 2024 01:01 PM AMBULATORY - NONE [place] [facility] Active, Pending, and Scheduled Orders This section includes a listing of several types of active, pending, and scheduled orders, including clinic medications orders, diagnostic test orders, procedure orders and consult orders; where the start date of the order is 45 days before the date of the Encounter or 45 days after the date of theEncounter. The data comes from all [place] treatment [facility]. Test Date/Time Test Type Test Details Facility Name Jun 28, 2024 12:58 PM Consult Order PALLIATIVE CARE OUTPATIENT Cons Sponsorship Coordinator's [facility] Jul 06, 2024 07:22 AM Consult Order CSP PCAFC HOME-CARE ASSESSMENT OUTPT Cons Sponsorship Coordinator's [facility] Jul 07, 2024 02:02 PM Consult Order OCCUPATION AL THERAPY OUTPATIENT Cons Sponsorship Coordinator's [facility] Lab Results: +/- 30 days of the encounter This section includes the Chemistry and Hematology Lab Results on record with [place] for the patient. Radiology Reports and Pathology [...] PM Reporting Lab: [facility] [address] [facility] [address] Performing Lab: [facility] [address] [facility] [address] URINE COLOR Light-Yellow NOT DEFINED SPECIFIC GRAVITY [...] 07, 2024 03:55 PM CURRENT SMOKER WHIT [facility] Tobacco Use History This section includes a history of the smoking, or tobacco-related health factors, that were collected on or before the date of the Encounter. The data comes from the [place] facility where the Encounter took place. Date/Time Smoking Status/Tobacco Use Comment F acility Feb 21, 2024 10:15 AM VA-TOBACCO USE > 1 5 LESS THAN 30 YEARS [facility] Feb 21, 2024 10:15 AM VA-TOBACCO USE ADVICE [facility] Feb 21, 2024 10:15 AM VA-TOBACCO USE RECRUITER COORDINATOR NO [facility] Feb 21, 2024 10:15 [...] ADVANCE DIRECTIVE DISCUSSION PURNIMA ROJAS [facility] Pathology Reports: +/- 30 days [...] comes from all [place] treatment facilities. Date/Time Pathology Report Provider Source Jun 07, 2024 05:30 PM LR MICROBIOLOGY RE PORT: Reporting Lab: [facility] [CLIA# [id number]] [address] [facility] [place] [address] Accession [UID]: [id number] [[id number]] Received: Jun 07, 2024@18:38 Collection sample: URINE CLEAN CATCH Collection date: Jun 07, 2024 17:30 Site/Specimen: URINE Provider: TODD CERNA Test(s) ordered: CULTURE,URINE CLEAN CATCH..... completed: Jun 10, 2024 12:19 * BACTERIOLOGY FINAL REPORT => Jun 12, 2024 11:34 TECH CODE: [id number] CULTURE RESULTS: 1. ENTEROCOCCUS FAECALIS - Quantity: [...] Bacteriology Report Performed By: [facility] [CLIA# [id number]] [address] [place] [address] [facility] Encounter Notes: All associated encounter notes This section contains the clinical notes associated to the Encounter. Date/Time Encounter Note(s) Provider Source Jul 05, 2024 02:49 PM CAREGIVER CERTIFIC ATE: LOCAL TITLE: CSP PCAFC CEAT REVIEW CONSULT STANDARD TITLE: CAREGIVER CERTIFICATE DATE OF NOTE: JUL 05, 2024@14:49 ENTRY DATE: JUL 05, 2024@14:49:32 AUTHOR: NIRAJ SEGUNDO COSIGNER: URGENCY: STATUS: COMPLETED Centralized Eligibility and Appeals Team (CEAT) Review Note INITIAL APPLICATION REVIEW Date of CEAT Review: 07/05/2024 [place] and at least one Family Caregiver have submitted a valid application for the Program of Comprehensive Assistance for Family Caregivers (PCAFC). Valid Application Received Date (VARD): 06/16/2024 DETERMINATION: Continue with Application Local CSP staff notified to continue with the next steps of the application process: a)Caregiver Training b)Initial Home-Care Assessment INITIAL REVIEW FINDINGS: The is in need of personal care services for a minimum of six continuous months (38 C.F.R. 71.20(a)(3)). To meet this criterion, the [place] must be in need of personal care services as defined in (38 C.F.R. 71.15 In need of personal care services) based on A, B, or C below, as well as need those personal care services for a minimum of six continuous months. A. An inability to perform one or more activities of daily living (38 C.F.R. 71.20(a)(3)(i)) which means the individual requires personal care services each time he or she completes one or more of the following (38 C.F.R. 71.15 Inability to perform an activity of daily living (ADL)). [X] MET [] NOT MET If NOT MET, please proceed to the next criterion. If MET, please select applicable ADLs: Dressing or undressing oneself [X] MET [ ] NOT MET Bathing: [X] MET [ ] NOT MET Grooming oneself in order to keep oneself clean and presentable [ ] MET [X] NOT MET Adjusting any special prosthetic or orthopedic appliance, that by reason of the particular disability, cannot be done without assistance (this does not include the adjustment of appliances that nondisabled persons would be unable to adjust without aid, such as supports, belts, lacing at the back, etc.) [ ] MET [X] NOT MET Toileting or attending to toileting [X] MET [ ] NOT MET Feeding oneself due to loss of coordination of upper extremities [ ] MET [X] NOT MET Mobility (walking, going upstairs transferring from bed to chair, etc.) [X] MET [ ] NOT MET List ADL needs: [place] requires hands-on assistance with bathing, dressing, toileting and mobility. While [place] needs assistance with four ADLs, the assistance documented at this time does not meet the threshold in which [place] would require substantial/maximal assistance or be totally dependent on a caregiver for three or more ADLs. B. The [place] applicant has a need for supervision or protection based on symptoms or residuals of neurological or other impairment or injury. (38 U.S.C.1720G(a)(2)(C)(ii)). [] MET [X] NOT MET List ii. needs: C. The applicant has a need for regular or extensive instruction or supervision without which the ability of the to function in daily life would be seriously impaired. (38 U.S.C. 1720G(a)(2)(C)(iii)). [] MET [X] NOT MET List iii. needs: Preliminary Level Determination (note this could change following additional assessments completed prior to final determination): [X] Level 1 [ ] Level 2 DUPLICATION OF SERVICES The [place] is receiving personal care services which may constitute duplication of services and result in adjustment of VA personal care services (PCS) hours if enrolled in [facility]. Local CSP staff will inform the applicants about VA personal care services and [facility] participation. [X] YES [] NO DISCLAIMER: The author of this note is a member of an inter-professional [employer] and is documenting the team decision. [facility] is not the treating provider for this , thus, any information regarding follow-up care should be directed to the [place]'s care team. /vivian/ NIRAJ SEGUNDO [facility] REPAIR DEPARTMENT MANAGER Signed: 07/05/2024 14:50 Receipt Acknowledged By: * AWAITING SIGNATURE * BENJAMÍN TEMPLETON * AWAITING SIGNATURE * MARCELA THOMAS 07/06/2024 07:26 /vivian/ Lilliam Boothe [facility] Caregiver Support Sustainable Communities Designer NIRAJ SEGUNDO [facility]
--- OUTSIDE RECORDS SUMMARY | 2024-07-07 22:30 | XMS_ITS | Encounter Summary ---
Author Name [place] Organization [place] Address [address] [place] [address] Care Team Providers Care Human Factors Ergonomist Name Role Phone KYRA VELASQUEZ Primary Care [...] [facility] (WNR) MEDICARE [facility](W NR) * Aug 23, 2023 [id number] ANNALISA LOYD ITE PATIENT [facility] (WNR) MEDICARE ADVANTAGE [facility] (WNR) Aug 23, 2020 [id number] [phone] ANNALISA LOYD ITE PATIENT [facility] (WNR) MEDICARE ADVANTAGE [facility](W NR) Aug 23, 2012 [id number] [phone] ANNALISA LOYD ITJannette PATIENT Selected Encounter This section includes the information on record at [place] for the Encounter. Date/Time Encounter Type Encounter Description Reason Pro vider Source Jul 06, 2024 09:14 AM Outpatient Encounter ADMIN PAT ACTIVTIES (MASNONCT) [...] - SURGERY [facility] Jul 24, 2024 11:00 AM AMBULATORY - SURGERY [facility] Jul 27, 2024 10:00 AM AMBULATORY - NONE [place] JO[facility]LE [facility] Aug 29, 2024 10:30 AM AMBULATORY - NONE [place] JOELLE T [facility] Aug 29, 2024 11:15 AM AMBULATORY - SURGERY [facility] Oct 23, 2024 01:00 PM AMBULATORY - MEDICINE [facility] Oct 23, 2024 01:01 PM AMBULATORY - NONE [place] JO[facility]LE [facility] Active, Pending, and Scheduled Orders [...] The data comes from all [place] treatment [facility]. Test Date/Time Test Type Test Details Facility Name Jun 28, 2024 12:58 PM Consult Order PALLIATIVE CARE OUTPATIENT Cons Comber [facility]ter[facility] Jul 06, 2024 07:22 AM Consult Order CSP PCAFC HOME-CARE ASSESSMENT OUTPT Cons [facility]ber [facility] Jul 07, 2024 02:02 PM Consult Order OCCUPATION AL THERAPY OUTPATIENT Cons Comber Setter[facility] Lab Results: +/- 30 days [...] Range Comment Jun 07, 2024 05:30 PM [facility] URINALYSIS W/REFLEX TO CULTURE Specimen Type: URINE No comment entered. Ordering Provider: KAREEM CERNA Report Released Date/Time: Jun 07, 2024 04:57 PM Reporting Lab: [facility] [address] [facility] [address] Performing Lab: [facility] [address] [facility] [address] URINE COLOR Light-Yellow NOT DEFINED SPECIFIC GRAVITY [...] 07, 2024 03:55 PM CURRENT SMOKER WHIT [facility] Tobacco Use History This [...] THAN 30 YEARS [facility] Feb 21, 2024 10:15 AM VA-TOBACCO USE ADVICE [facility] Feb 21, 2024 10:15 AM VA-TOBACCO USE ASSISTANT PROFESSOR OF FORESTRY NO [facility] Feb 21, 2024 10:15 AM VA-TOBACCO USE MED NO [facility] Feb 21, 2024 10:15 AM VA-TOBACCO USE WI 30 MIN OF WAKEUP [facility] Feb 21, 2024 10:15 AM VA-TOBACCO USER EVERY DAY [facility] Jul 17, 2021 02:27 PM CURRENT SMOKER REINIER Bhatia [facility] Jul 01, 2021 08:55 [...] DISCUSSION PURNIMA ROJAS [facility] Pathology Reports: +/- 30 [...] Reporting Lab: [facility] [CLIA# [id number]] [address] [facility] [address] Accession [UID]: [id number] [[id number]] Received: Jun 07, 2024@18:38 Collection sample: URINE CLEAN CATCH Collection date: Jun 07, 2024 17:30 Site/Specimen: URINE Provider: TODD CERNA Test(s) ordered: CULTURE,URINE CLEAN CATCH..... completed: Jun 10, 2024 12:19 * BACTERIOLOGY FINAL REPORT => Jun 12, 2024 11:34 TECH CODE: [id number] CULTURE RESULTS: 1. ENTEROCOCCUS FAECALIS - Quantity: [...] Performed By: [facility] [CLIA# [id number]] [address] [place] [address] [facility] Encounter Notes: All associated encounter notes This section contains the clinical notes associated to the Encounter. Date/Time Encounter Note(s) Provider Source Jul 06, 2024 09:14 AM CAREGIVER CERTIFIC ATE: LOCAL TITLE: CSP ADMINISTRATIVE NOTE STANDARD TITLE: CAREGIVER CERTIFICATE DATE OF NOTE: JUL 06, 2024@09:14 ENTRY DATE: JUL 06, 2024@09:14:11 AUTHOR: FADI REBOLLEDO EXP COSIGNER: URGENCY: STATUS: COMPLETED As part of the application process for possible enrollment into the CSP program, a home safety evaluation has been scheduled for 07/12/2024 @ 9:30am-10:00am. The is in agreement with the scheduled visit. /vivian/ FADI REBOLLEDO SALES REPRESENTATIVE [employer] FADI REBOLLEDO SALES REPRESENTATIVE [employer] Signed: 07/06/2024 09:17 FADI REBOLLEDOVIRTUA VOORHEES
[2024-07-07 22:31] LABS: Lactate 1.5 mmol/L (0.6-1.4)
--- OUTSIDE RECORDS SUMMARY | 2024-07-07 22:31 | XMS_ITS | Clinical Summary ---
Author Organization [facility] Address [facility] [place] [address] Care Team Providers Care Social Staff Worker Name Role Phone Amanda Pino Primary Care Provider [phone] Allergies Active Allergy Reactions Criticality Noted Date [...] Intracranial bleed 09/02/2020 Overview (11/07/2020): Treated in [place] for brain aneurism Malignant neoplasm of prostate [...] AM EDT Office Visit Radiation Oncology at [address] [phone] Taya De La Vega PA Malignant neoplasm of prostate (Primary Dx); S/P radiotherapy 05/11/2024 Travel from Last 3 Months Family History Medical History Relation Comments Prostate Cancer Father Relation Status Comments Father Social History Tobacco Use Types Packs/Day Years Used Date Smoking Tobacco: Every Day Cigarettes 1 60.9 Started: 1963 Smokeless Tobacco: Never Comments:rolls on [...] AM EDT Office Visit Radiation Oncology at [address] [phone] Taya De La Vega PA [facility] HEMATOLOGY [place] [address] 11/13/2024 2:00 PM EDT Office Visit Hematology/Oncology at [address] [phone] Kirt Kennedy MD [facility] HEMATOLOG[facility] [place] [address] Alem Lazaro APRN [address] [place] [address] DR HEMATOLOGY [place] [address] Health Maintenance Due Date Last Done Comments Pneumoccocal Vaccine: 65+ (1 of 2 - PCV) 1951 Tetanus/Diphtheria/Pertussis Vaccines (1 - Tdap) 09/24 Zoster vaccine (1 of 2) 1995 Advance Directive 2000 Covid-19 Vaccine (1 - 2023-25 season) 2024 Influenza (Flu) vaccine (1 o f 1 - Influenza standard series) 04/23/2024 Hepatitis C Screening Completed 04/03/2015 Medical Devices Implanted Type Area Dye Weigher Helper Device Identifier Shelf Expiration Date Model / Serial / Lot Stent Ureteral [id number] Set Dbl Pgtl Tpr Tip Ptfe Hyconi ([id number]) (Autoreq) - [id number] Implanted:Qty : 1 on 10/21/2023 by Adan Navarrete Jr., MD at [facility] IMPLANTS Right: Ureter [employer] [id number] 06/10/2026 [id number] 60 / / [id number] Stent Ureteral [id number] Dbl Pgtl Ptfe Tria ([id number]) - [id number] Implanted:Qty : 1 on 10/21/2023 by Adan Navarrete Jr., MD at [facility] IMPLANTS Left: Ureter [employer] [id number] 12/08/2025 [id number] 30 / / [id number] Explanted Type Area Dye Weigher Helper Device Identifier Shelf Expiration Date Model / Serial / Lot Stent Ureteral [id number] Dbl Pgtl Ptfe Tria ([id number]) - [id number] Implanted:Qty : 1 on 08/05/2023 by Adan Navarrete Jr., MD at [facility] Explanted:Qty : 1 on 10/21/2023 by Adan Navarrete Jr., MD at [facility] IMPLANTS Left: Ureter [employer] [id number] 01/17/2026 [id number] / / [id number] Stent Ureteral 2leq97an Dbl Pgtl Soft Ptfe Tria ([id number]) - [id number] Implanted:Qty : 1 on 08/05/2023 by Adan Navarrete Jr., MD at [facility] Explanted:Qty : 1 on 10/21/2023 by Adan Navarrete Jr., MD at [facility] IMPLANTS Right: Ureter [employer] [id number] 02/04/2026 [id number] / / [id number] Procedures Procedure Name Priority Date/Time Associated Diagnosis [...] PM EDT) Hepatitis C Antibody Negative Negative [facility] Blood specimen (specimen) 04/03/2015 3:27 PM EDT 04/03/2015 3:43 PM EDT Narrative Resulting Agency Comment Spec In Lab Eileen Cheung MD CHEMISTRY ORDERA BLES [facility]AL[facility] from Last 3 Months or Most Recently Relevant to Health Maintenance Advance Directives Documents on File Type Date Recorded Patient Inspector Precision Expl anation Personal Inspector Precision 10/21/2023 11:59 AM * Attempt Cardiopulmonary Resuscitation [...] Status decision made by: Patient Care Teams Social Staff Worker Relationship Specialty Start Date End Date Amanda Pino PA [address] [place] [address] PCP - General Internal Medicine 04/28/23
--- OUTSIDE RECORDS SUMMARY | 2024-07-07 22:31 | XMS_ITS | Encounter Summary ---
Author Organization [facility] Address [address] [place] [address] Care Team Providers Care Supervisor Rose Grading Name Role Phone Jan Alfredo Jorge GARDNER Primary Care Provider Encounter Details Date Type Department Care Team (Late st Contact Info) Description 06/09/2021 Lab Requisition [facility] Pathology & Laboratory Medicine - [address] [address] America Cohn MD [address] [place] [address] Encounter for other general examination Social History Tobacco Use Types Packs/Day Years Used Date Smoking Tobacco: Never Assessed Sex and Gender Information Value Date Recorded Sex Assigned at Not on file Legal Sex Male 16:57 EDT Gender Identity Not on file Sexual Orientation [...] management options, if applicable. 06/10/2021 12:51 EDT [facility] Final Diagnosis A. SKIN OF GROIN, RIGHT, SHAVE BIOPSY: - Benign verruciform keratosis, consistent with verruca vulgaris. See microscopic. 06/10/2021 12:51 EDT [facility] Attestation By the signature below, the attending physician certifies that they have 1) personally conducted a gross and/or microscopic examination of the described specimen(s), and/or personally interpreted the results of laboratory testing of the described specimen(s), and 2) personally rendered or confirmed the above diagnosis. 06/10/2021 12:51 [facility] at 1251 Microscopic Description The findings show an acanthotic and verruciform keratosis. Scattered viral cytopathic effect with abrupt parakeratosis is noted favoring a viral-related process. The features are most suggestive of a verruca vulgaris. 06/10/2021 12:51 [facility] Clinical History Pigmented lesion right groin; clinical diagnosis code: D49.2 06/10/2021 12:51 [facility] Gross Description A. Received in [...] en face A2-A4- 4 central sections MARISOL HOGAN([facility]) 06/09/2021 17:32 06/10/2021 12:51 [facility] Performing Lab [facility] 06/10/2021 12:51 [facility] Scanned Images 06/10/2021 12:51 [facility] Tissue TISSUE SPECIMEN FROM SKIN / Unknown 06/06/2021 11:45 EDT 06/09/2021 17:01 EDT us America Cohn MD PATHOLOGY ORDERABLES Final Resul t [facility] [address] [place] [address] documented in this encounter Visit Diagnoses Diagnosis Encounter for other general examination documented in this encounter Care Teams Supervisor Rose Grading Relationship Specialty Start Date End Date Alfredo Montoya DO [address] [place] [address] PCP - General Internal Medicine - Primary Care 05/23/21 documented as of this encounter
--- OUTSIDE RECORDS SUMMARY | 2024-07-07 22:31 | XMS_ITS | Encounter Summary ---
Author Organization Formerly [facility] Address [facility] [place] [address] Care Team Providers Care Director Diabetes Name Role Phone Amanda Pino Primary Care Provider [phone] Encounter Details Date Type Department Care Team [...] EDT Office Visit Radiation Oncology at [address] [phone] Taya De La Vega PA [facility] DR HEMATOLOGY [place] [address] 11/13/2024 2:00 PM EDT Office Visit Hematology/Oncology at [address] [phone] Kirt Kennedy MD [facility] DR [place] [address] Alem Lazaro APRN [address] [place] [address] DR HEMATOLOGY [place] [address] documented as of this encounter Visit Diagnoses Not on filedocumented in this encounter Care Teams Director Diabetes Relationship Specialty Start Date End Date Amanda Pino PA [address] [place] [address] PCP - General Internal Medicine 04/28/23 documented as of this encounter
--- OUTSIDE RECORDS SUMMARY | 2024-07-07 22:31 | XMS_ITS | Encounter Summary ---
Author Name [facility] Organization [facility] Address [address] [place] [address] Care Team Providers Care Earth Burner Name Role Phone KYRA VELASQUEZ Primary [...] Ervin's Name Patient's Relationship to Policy Ervin [facility] (WNR) MEDICARE ADVANTAGE [facility](W NR) * Aug 23, 2023 [id number] ANNALISA LOYD ITE PATIENT [facility] (WNR) MEDICARE ADVANTAGE [facility] (WNR) Aug 23, 2020 [id number] [phone] ANNALISA LOYD ITE PATIENT [facility] (WNR) MEDICARE [facility](W NR) Aug 23, 2012 [id number] ANNALISA LOYD ITE PATIENT Selected Encounter This section includes the information on record at [place] for the Encounter. Date/Time Encounter Type Encounter Description Reason Pro vider Source Mar 03, 2024 12:00 PM Outpatient Encounter COMMUNITY CARE CONSULT IHE Encounter Template Text not used by [facility] Plan of Treatment: Future Appointments (+ 6 months) and Future Tests (+/- 45 days) The Plan of Treatment section includes future care activities for the patient from all [place] treatmentfacilities. This section includes future appointments and [...] 07, 2024 01:00 PM AMBULATORY - SURGERY [facility] Active, Pending, and Scheduled [...] 12:13 PM Consult Order COMMUNITY CARE-NEUROLOGY Cons Manager [employer] [facility] Apr 06, 2024 04:04 PM Consult Order COMMUNITY CARE-ALLERGY Cons Manager [facility] Social History: Smoking Status (Most [...] Feb 21, 2024 10:15 AM VA-TOBACCO USE CIRCUIT CLERK NO [facility] Feb 21, 2024 [...] AM RENAL AND BLADDER ULTRASOUND: GALINA LOYD [id number] -1945 M Ex Date: FEB 21, 2024@11:00 Req Phys: BRITTNEY SOTO Loc: [facility] [place] G2RD (Req'g L Img Loc: ULTRASOUND (OOS) Service: [place] [address] (Case 55 COMPLETE) ULTRASOUND RENAL (US Detailed) CPT:77350 Reason for Study: US following ureteral stent removal, eval hydro/stones (Case 56 COMPLETE) ULTRASOUND PELVIS (US Detailed) CPT:74661 Clinical History: Please coordinate with Urology follow [...] BRITTNEY PEDERSEN, RADIOLOGY ATTENDING (Miah) /BRITTNEY FREIRE [facility] Encounter Notes: All associated encounter notes This section contains the clinical notes associated to the Encounter. Date/Time Encounter Note(s) Provider Source Mar 03, 2024 12:00 PM NONVA NOTE: LOCAL TITLE: NonVA Note STANDARD TITLE: NONVA NOTE DATE OF NOTE: MAR 03, 2024@12:00 ENTRY DATE: JUL 06, 2024@10:12:20 AUTHOR: NICOLE CASTELLON COSIGNER: URGENCY: STATUS: COMPLETED VistA Imaging - Scanned Document Date of Service (Procedure/Event): ADMIT: 03/03/2024, DISCHARGE: 03/30/2024 Note Title: NonVA Note Origin: NON-VA Type: PROGRESS NOTE Specialty: REHABILITATIVE Procedure: OCCUPATIONAL AND PHYSICAL THERAPY DISCHARGE SUMMARY [facility] SCANNED DOCUMENT SIGNATURE NOT REQUIRED Electronically Filed: 07/06/2024 by: NICOLE GONZALEZ [facility]
--- OUTSIDE RECORDS SUMMARY | 2024-07-07 22:31 | XMS_ITS | Encounter Summary ---
Author Organization [facility] Address [facility] [place] [address] Care Team Providers Care Biodiesel Operations Manager Name Role Phone Amanda Pino Primary Care Provider [phone] Encounter Details Date Type Department Care Team (Late st Contact Info) Description 05/11/2024 10:00 AM EDT Office Visit Radiation Oncology at [address] [phone] Taya De La Vega PA [facility] [place] [address] Malignant neoplasm of prostate (Primary Dx); S/P [...] Vega PA - 05/11/2024 10:00 AM EDT [facility] [place] [address] FOLLOW-UP: Patient: Narcisa Eduardo : 1945 PCP: Amanda Pino PA-C (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 On 12/01/19, patient saw Dr. Thomas at the [facility], who discussed various treatment options. Patient [...] a history. He follows with Neurology at [facility] (Dr. Wendie Garcia). He also has a history of follicular lymphoma, managed by Dr. Kennedy at [facility]. [facility] [...] on 10/21/23, follows with Urology at the [facility] for stent removal/exchange. No acute changes. Today, [...] raquel. - No acute concerns. Follows with [facility] Urology for LUTS, chronic UTIs, and h/o [...] Next visit (prefers in-person): 6 months Labs ([facility]): PSA Narcisa Eduardo had the opportunity to [...] EDT Office Visit Radiation Oncology at [address] [phone] Taya De La Vega PA [facility] [place] [address] 11/13/2024 2:00 PM EDT Office Visit Hematology/Oncology at [address] [phone] Kirt Kennedy MD [facility] DR [place] [address] Alem Lazaro APRN [address] [place] [address] DR HEMATOLOGY AND ONCOLOGY [place], [place] [address] Scheduled Orders Name Type Priority Associated Diagnoses Orde r Schedule PSA (Ultrasensitive) Lab Routine Malignant neoplasm of prostate Expected: 10/30/2024 (Approximate), Expires: 05/01/2025 documented as of this encounter Visit Diagnoses Diagnosis Malignant neoplasm of prostate- Primary S/P radiotherapy Convalescence following radiotherapy documented in this encounter Care Teams Biodiesel Operations Manager Relationship Specialty Start Date End Date Amanda Pino PA [address] [place] [address] PCP - General Internal Medicine 04/28/23 documented as of this encounter
--- OUTSIDE RECORDS SUMMARY | 2024-07-07 22:31 | XMS_ITS | Encounter Summary ---
Author Organization [facility] Address [facility] [place] [address] Care Team Providers Care Concrete Bucket Hooker Name Role Phone Amanda Pino Primary Care Provider [phone] Encounter Details Date Type Department Care Team (Late st Contact Info) Description 11/12/2023 [place] [phone] Cortez Arrington MD [facility] [place] [address] Social History Tobacco Use Types Packs/Day Years [...] Called patient to discuss culture results from [facility] obtained on 11/10/23. He has upcoming procedure with Dr. Navarrete on 11/25/23. Recommended repeat Ucx to guide preoperative prophylaxis as necessary. New requisition sent to [facility]. Emphasized clean catch technique. Cortez Arrington MD documented in this encounter Plan of Treatment Upcoming Encounters Date Type Department Care Team (Late st Contact Info) Description 11/09/2024 10:30 AM EDT Office Visit Radiation Oncology at [address] [phone] Taya De La Vega PA [facility] DR HEMATOLOGY [place] [address] 11/13/2024 2:00 PM EDT Office Visit Hematology/Oncology at [address] [phone] Kirt Kennedy MD [facility] DR HEMATOLOGY [place] [address] Alem Lazaro APRN [address] [place] [address] DR HEMATOLOGY AND ONCOLOGY [place], [place] [address] Scheduled Orders Name Type Priority Associated Diagnoses Orde r Schedule Urine culture Clean Catch Urine Microbiology Routine Nephrolithiasis Expected: 11/12/2023, Expires: 11/11/2024 documented as of this encounter Visit Diagnoses Diagnosis Nephrolithiasis Calculus of kidney documented in this encounter Care Teams Concrete Bucket Hooker Relationship Specialty Start Date End Date Amanda Pino PA [address] [place] [address] PCP - General Internal Medicine 04/28/23 documented as of this encounter
--- OUTSIDE RECORDS SUMMARY | 2024-07-07 22:31 | XMS_ITS | Encounter Summary ---
Author Organization [facility] Address [facility] [place] [address] Care Team Providers Care Restaurant Supervisor Name Role Phone Amanda Pino Primary Care Provider [phone] Encounter Details Date Type Department Care Team (Late st Contact Info) Description 11/19/2023 [place] [phone] Cortez Arrington MD [facility] [place] [address] Social History Tobacco Use Types Packs/Day Years [...] included. Called patient to discuss Ucx from [facility] on 11/17/23 Pt states they still have [...] EDT Office Visit Radiation Oncology at [address] [phone] Taya De La Vega PA [facility] DR HEMATOLOGY [place] [address] 11/13/2024 2:00 PM EDT Office Visit Hematology/Oncology at [address] [phone] Kirt Kennedy MD [facility] DR HEMATOLOGY [place] [address] Alem Lazaro APRN [address] [place] [address] [place] [address] documented as of this encounter Visit Diagnoses Not on filedocumented in this encounter Care Teams Restaurant Supervisor Relationship Specialty Start Date End Date Amanda Pino PA [address] [place] [address] PCP - General Internal Medicine 04/28/23 documented as of this encounter
--- OUTSIDE RECORDS SUMMARY | 2024-07-07 22:31 | XMS_ITS | Encounter Summary ---
Author Name [facility] [place] Organization [facility] [facility] [place] Address [address] [place] [address] Care Team Providers Care Student Truck Driver Name Role Phone RON KYRA Primary Care [...] Policy Ervin [facility] (WNR) MEDICARE [facility](W NR) * Aug 23, 2023 [id number] ANNALISA LOYD ITE PATIENT [facility] (WNR) MEDICARE ADVANTAGE [facility] (WNR) Aug 23, 2020 [id number] [phone] ANNALISA LOYD ITE PATIENT [facility] (WNR) MEDICARE ADVANTAGE [facility](W NR) Aug 23, 2012 [id number] ANNALISA LOYD PATIENT Selected Encounter This section includes the information on record at [place] for the Encounter. Date/Time Encounter Type Encounter Description Reason Provider Source Jul 06, 2024 09:48 AM HC PRO PHONE CALL 5-10 MIN TELEPHONE/ANDREWILL LINDSAY ICD-10-CM Z02.9 Encounter for administrative examinations, unspecified LIVLAUREN OJEDAA IHJannette Encounter Template Text not used by [place] Assessments - Encounter Diagnoses This section includes the primary and secondary diagnoses documented for the Encounter. Date/Time Primary/Secondary Diagnosis Diagnosis Name Provider Source Jul 06, 2024 09:48 AM PRIMARY Encounter for administrative examinations, unspecified CASSIDY PECK [facility] Plan of Treatment: Future Appointments (+ 6 months) and Future Tests (+/- 45 days) The Plan of Treatment section includes future care activities for the patient from all [place] [facility]. This section includes future appointments and future orders which are active, pending or scheduled. Future Appointments This section includes appointments that were scheduled to occur 6 months from the date of the Encounter, up to a maximum of 20 appointments. The data comes from all [facility]. Appointment Date/Time Appointment Type Appointme nt Facility Name Jul 11, 2024 10:00 AM AMBULATORY - SURGERY [facility] Jul 11, 2024 10:01 AM AMBULATORY - SURGERY [facility] Jul 24, 2024 11:00 AM AMBULATORY - SURGERY [facility] Jul 27, 2024 10:00 AM AMBULATORY - NONE [place] [facility] Aug 29, 2024 10:30 AM AMBULATORY - NONE [place] [facility] Aug 29, 2024 11:15 AM AMBULATORY - SURGERY [facility] Oct 23, 2024 01:00 PM AMBULATORY - MEDICINE [facility] Oct 23, 2024 01:01 PM AMBULATORY - NONE [place] [facility] Active, Pending, and Scheduled Orders This section includes a listing of several types of active, pending, and scheduled orders, including clinic medications orders, diagnostic test orders, procedure orders and consult orders; where the start date of the order is 45 days before the date of the Encounter or 45 days after the date of theEncounter. The data comes from all [facility]. Test Date/Time Test Type Test Details Facility Name Jun 28, 2024 12:58 PM Consult Order PALLIATIVE CARE OUTPATIENT Cons Drawer Fitter's Choice [facility] Jul 06, 2024 07:22 AM Consult Order CSP PCAFC HOME-CARE ASSESSMENT OUTPT Cons Drawer [employer] Choice [facility] Jul 07, 2024 02:02 PM Consult Order OCCUPATION AL THERAPY OUTPATIENT Cons Drawer Fitter's Choice [facility] Lab Results: +/- [...] Range Comment Jun 07, 2024 05:30 PM [facility] URINALYSIS W/REFLEX TO CULTURE Specimen Type: URINE No comment entered. Ordering Provider: KAREEM CERNA Report Released Date/Time: Jun 07, 2024 04:57 PM Reporting Lab: [facility] [address] [facility] [address] Performing Lab: [facility] [address] [facility] [address] URINE COLOR Light-Yellow NOT DEFINED SPECIFIC GRAVITY [...] > 1 5 LESS THAN 30 YEARS [facility] Feb 21, 2024 10:15 AM VA-TOBACCO USE ADVICE [facility] Feb 21, 2024 10:15 AM VA-TOBACCO USE HORTICULTURE PROFESSOR NO [facility] Feb 21, 2024 10:15 AM VA-TOBACCO USE MED NO [facility] Feb 21, 2024 10:15 AM VA-TOBACCO USE WI 30 MIN OF WAKEUP [facility] Feb 21, 2024 10:15 AM VA-TOBACCO USER EVERY DAY [facility] Jul 17, 2021 02:[address] [facility] Jul 01, 2021 08:55 PM VA-VAAES TOBACCO U SE CURRENT NRT DECLINE [facility] Jul 01, 2021 02:41 PM CURRENT SMOKER [facility] Jannette [facility] Dec 08, 2020 08:45 [...] DIRECTIVE DISCUSSION PURNIMA ROJAS [facility] Pathology Reports: +/- 30 days [...] comes from all [place] treatment facilities. Date/Time Pathology Report Provider Source Jun 07, 2024 05:30 PM LR MICROBIOLOGY RE PORT: Reporting Lab: [facility] [CLIA# [id number]] [address] [place] [address] Accession [UID]: [id number] [[id number]] Received: Jun 07, 2024@18:38 Collection sample: URINE CLEAN CATCH Collection date: Jun 07, 2024 17:30 Site/Specimen: URINE Provider: TODD CERNA Test(s) ordered: CULTURE,URINE CLEAN CATCH..... completed: Jun 10, 2024 12:19 * BACTERIOLOGY FINAL REPORT => Jun 12, 2024 11:34 TECH CODE: [id number] CULTURE RESULTS: 1. ENTEROCOCCUS FAECALIS - Quantity: [...] Performing Laboratory: Bacteriology Report Performed By: [facility] [CLIA# [id number]] [address] [place] [address] [facility] Encounter Notes: All associated encounter notes This section contains the clinical notes associated to the Encounter. Date/Time Encounter Note(s) Provider Source Jul 06, 2024 09:48 AM CAREGIVER CERTIFIC ATE: LOCAL TITLE: CSP TELEPHONE NOTE STANDARD TITLE: CAREGIVER CERTIFICATE DATE OF NOTE: JUL 06, 2024@09:48 ENTRY DATE: JUL 06, 2024@09:48:31 AUTHOR: CASSIDY PECK EXP COSIGNER: URGENCY: STATUS: COMPLETED Called CHIP and her daughter Bertha to discuss the training and EFT needs for the [facility] application. CG doesn't have an email address or internet access. Their daughter is planning to assist caregiver with establishing an email address and providing internet access, so caregiver can complete training and sign up for direct deposit. /vivian/ AMADOU Elliott, RN Registered Nurse Signed: 07/06/2024 10:11 CASSIDY PECK [facility]
--- OUTSIDE RECORDS SUMMARY | 2024-07-07 22:31 | XMS_ITS | Encounter Summary ---
Author Organization [facility] Address [facility] [place] [address] Care Team Providers Care Physician/Allergy/Immunology Name Role Phone Amanda Pino Primary Care Provider [phone] Encounter Details Date Type Department Care Team [...] AM EDT Office Visit Radiation Oncology at [address] [phone] Taya De La Vega PA [facility] DR HEMATOLOGY [place] [address] 11/13/2024 2:00 PM EDT Office Visit Hematology/Oncology at [address] [phone] Kirt Kennedy MD [facility] DR HEMATOLOGY [place] [address] Alem Lazaro APRN [address] [place] [address] DR HEMATOLOGY [place] [address] documented as of this encounter Visit Diagnoses Not on filedocumented in this encounter Care Teams Physician/Allergy/Immunology Relationship Specialty Start Date End Date Amanda Pino PA [address] [place] [address] PCP - General Internal Medicine 04/28/23 documented as of this encounter
--- OUTSIDE RECORDS SUMMARY | 2024-07-07 22:31 | XMS_ITS | Continuity of Care Document ---
Author Organization [facility] Ambulatory Clinics Address [address] [place] [address] Care Team Providers Care Jacquard Fixer Name Role Phone KYRA VELASQUEZ MD Primary Care Physician [phone] Encounter [facility] NBR [id number] Date(s): 06/15/24 - 06/15/24 [facility] Ambulatory Clinics [address] [place], [place] [address] Encounter Diagnosis Partial symptomatic epilepsy with complex partial seizures, not intractable, without status epilepticus(Discharge Diagnosis) - 06/15/24 Cerebral infarction involving middle cerebral artery(Discharge Diagnosis) - 06/15/24 Dementia with behavioral disturbance(Discharge Diagnosis) - 06/15/24 Discharge Disposition: Home or Self Care Attending Physician: ISA Porter- Referring Physician: KYRA VELASQUEZ MD Allergies, Adverse Reactions, Alerts Substance Criticality Severity Reaction Reaction Severity Status contrast media (gadolinium-based) Unable to assess criticality Unknown Active Assessment and Plan Extracted from: Title:Office Visit Note Author:NOEL Porter [facility]- Date:06/15/24 1.??Partial symptomatic epil epsy with complex partial seizures, not intractable, without status epilepticus??G40.209 ??Impression & Plan: 1. Focal Epilepsy - Currently stable on Lacosamide 200 mg (4 tablets) twice daily - Continue current dosage - Increase to 250 mg (5 tablets) twice daily on day prior to surgery or with infections - Continue use of nasal rescue medication (Midazolam spray) as needed - Monitor for changes in seizure frequency or presentation - Educate on factors that may lower seizure threshold (infections, sleep disturbances) ?? 2. Recurrent Urinary Tract Infections - Recently treated for MRSA UTI - Emphasize importance of hydration to prevent recurrence - Encourage increased fluid intake, including flavored options if preferred - Monitor for signs of recurrent infection ?? 3. Weight Loss and Decreased Appetite - Significant weight loss noted - Advised f/u with??primary care for evaluation of appetite stimulants (e.g., megestrol) - Encourage protein intake to maintain muscle mass and energy levels ?? 4. Dementia with Behavioral Disturbances - No acute issues mentioned-Denies hallucinations or significant mood changes -short term problematic particularly w/ UTI - Continue current management ?? 5. Follow-up Plan - Schedule follow-up appointment in 6 months - Advise to seek medical attention promptly for any concerning symptoms or changes in condition ?? 6. Medication Management - Ensure adequate refills on all current medications - PCP Discontinued Mirtazapine due to side effects (stress dreams) ?? 7. Care Coordination - Coordinate care with [facility] providers and local community care options - Utilize [facility] for emergencies under community care program ? 2.??Cerebral infarction involving middle cerebral artery??I63.519 ?? 3.??Dementia with behavioral disturbance??F03.918 Ordered: CBC w/ Diff, Blood, Routine, *Est. 12/14/24 +/- 100 days, Once, Nurse collect, Frail elderly Fatigue Long-term current use of anticonvulsant Dementia with behavioral disturbance, Order for future visit Comprehensive Metabolic Panel, Blood, Routine, *Est. 12/14/24 +/- 100 days, Once, Nurse collect, Frail elderly Fatigue Long-term current use of anticonvulsant Dementia with behavioral disturbance, Order for future visit Vitamin B12 & Folate Level, Blood, Routine, *Est. 12/14/24 +/- 100 days, Once, Nurse collect, Frail elderly Fatigue Long-term current use of anticonvulsant Dementia with behavioral disturbance, Order for future visit Vitamin D 25 Hydroxy Level, Blood, Routine, *Est. 12/14/24 +/- 100 days, Once, Nurse collect, Frail elderly Fatigue Long-term current use of anticonvulsant Dementia with behavioral disturbance, Order for future visit ?? Orders: lacosamide 50 mg oral tablet, 200 mg = 4 tab, Oral, BID, may take 2 extrat tablets ( 100mg ) if any UTI, fever or any surgical procedure, # 240 tab, 5 Refill(s), Pharmacy: [facility], 70.5, cm, 10/18/23 11:31:00 EST, Height, 46.63, kg, 06/15/24 11:26:00 EDT... Nayzilam 5 mg/inh nasal spray, 1 sprays, Nasal, Once, 1 nasal spray in one nostril prn convulsive seizure; may repeat once in 10 minutes if another seizure, # 2 EA, 0 Refill(s), Pharmacy: [facility], 70.5, cm, 10/18/23 11:31:00 EST, Height, 46.63, kg, 06/15/... CBC w/ Diff, Blood, Routine, *Est. 06/16/24 +/- 60 days, Once, Nurse collect, Long-term current use of anticonvulsant, Order for future visit Comprehensive Metabolic Panel, Blood, Routine, *Est. 06/16/24 +/- 60 days, Once, Nurse collect, Long-term current use of anticonvulsant, Order for future visit Risks, Benefits , alternatives and complications discussed with the patient. All questions were answered to patient satisfaction at time of visit. ?? I personally spent a total of??48??minutes??providing direct??care for this patient on the date of the encounter. ?? Time included??Preparing to see the patient (e.g., review of tests), Performing medically necessary appropriate exam and/or evaluation, Counseling and educating the patient/family/caregiver, Ordering medications, tests, or procedures, Referring and communicating information in the EHR or other health records, Independently interpreting results and communicating results to patient/family/caregiver, Care coordination ? Future Appointments Future Scheduled Tests Laboratory* Vitamin D 25 Hydroxy Level 12/14/24 * CBC w/ Diff 06/16/24 * CBC w/ Diff 12/14/24 * Comprehensive Metabolic Panel 06/16/24 * Comprehensive Metabolic Panel 12/14/24 * Vitamin B12 & Folate Level 12/14/24 Medications atorvastatin 40 mg oral tablet 80 mg = 2 tab, Oral, Daily, # 90 tab, 0 Refill(s) Start Date: 06/26/22 Status: Ordered cephalexin 500 mg oral capsule 28 EA, TAKE ONE CAPSULE BY MOUTH FOUR TIMES A DAY FOR 7 DAYS, 0 Refill(s) Start Date: 02/08/23 Status: Ordered D3 25 mcg (1000 intl units) oral tablet 25 mcg = 1 tab, Oral, Daily, 0 Refill(s) Start Date: 06/26/22 Status: Ordered lacosamide 50 mg oral tablet 200 mg = 4 tab, Oral, BID, may take 2 extrat tablets ( 100mg ) if any UTI, fever or any surgical procedure, # 240 tab, 3 Refill(s), Pharmacy: [facility], 177.8, cm, 02/08/23 10:27:00 EDT, Height, 58.97, kg, 01/19/23 21:29:00 EDT, Weight Dosing Start Date: 07/15/23 Status: Ordered lacosamide 50 mg oral tablet 200 mg = 4 tab, Oral, BID, may take 2 extrat tablets ( 100mg ) if any UTI, fever or any surgical procedure, # 240 tab, 5 Refill(s), Pharmacy: [facility], 70.5, cm, 10/18/23 11:31:00 EST, Height, 46.63, kg, 06/15/24 11:26:00 EDT, Weight Dosing Start Date: 06/15/24 Status: Ordered melatonin 3 mg oral tablet 3 mg = 1 tab, Oral, every day at bedtime, PRN as needed for insomnia, # 60 tab, 0 Refill(s) Start Date: 06/26/22 Status: Ordered Nayzilam 5 mg/inh nasal spray 1 sprays, Nasal, Once, 1 nasal spray in one nostril prn convulsive seizure; may repeat once in 10 minutes if another seizure, # 2 EA, 0 Refill(s), Pharmacy: [facility], 70.5, cm, 10/18/23 11:31:00 EST, Height, 46.63, kg, 06/15/24 11:26:00 EDT, Weight Dosing Start Date: 06/15/24 Status: Ordered nitrofurantoin macrocrystals-monohydrate 100 mg oral capsule 100 mg = 1 cap, Oral, BID, 0 Refill(s) Start Date: 06/15/24 Status: Ordered Probiotic Formula (Bacillus Coagulans) oral capsule 1 cap, Oral, Daily, # 30 cap, 0 Refill(s) Start Date: 06/26/22 Status: Ordered tamsulosin 0.4 mg oral capsule 0.8 mg = 2 cap, Oral, Daily, # 90 cap, 0 Refill(s) Start Date: 06/26/22 Status: Ordered Problem List Condition Confirmation Course Effective Dates Status Health Status Informant CA prostate, adenoca Confirmed Active Benign prostatic hypertrophy with outflow obstruction Confirmed Active Bradycardia Confirmed Active Cerebral infarction involving middle cerebral artery Confirmed Active Cerebrovascular accident (CVA) Confirmed Active Dementia with behavioral disturbance Confirmed Active Abnormal electroencephalogram (EEG) Confirmed Active Subdural hematoma, acute Confirmed Active History of non-Hodgkin's lymphoma Confirmed Active Personal history of radiation therapy Confirmed Active Prostate cancer Confirmed Active Non-Hodgkins lymphoma Confirmed Active Partial symptomatic epilepsy with complex partial seizures, not intractable, without status epilepticus Confirmed Active Seizure Confirmed Active Thrombocytopenia Confirmed Active Vital Signs Most recent to oldest [Reference Range]: 1 Peripheral Pulse Rate [60-100 bpm] 74 bp m (06/15/24 11:18 AM) Blood Pressure [90-120/60-80 mmHg] 137/6 9mmHg *HI* (06/15/24 11:18 AM) Mean Arterial Pressure, Cuff [65-140 mmH g] 92 mmHg (06/15/24 11:18 AM) Weight 46.63 kg (06/15/24 11:18 AM) Weight Measured (lbs) 102.801 lb (06/15/24 11:18 AM) Weight Dosing 46.630 kg (06/15/24 11:18 AM) Social History Social History Type Response Tobacco Current everyday tob acco user, Current some day tobacco user Tobacco Use:. 1 pk daily per day. Total pack years: 365. Sex Sex Representation Male (finding) Physician Outpatient Note * MATTHEW Porter: PERFORM Event Display: Office Clinic Note Physician Authored Date: [id number] GALINA LOYD JR :1945 Age:78 years Sex:Male Visit Date:06/15/2024 Primary Care Physician: KYRA VELASQUEZ MD Chief Complaint Transfer of care. History of Present Illness Mr. Loyd is a??78-year-old male presenting for transfer of care and history of seizure disorder - Last seen by Dr. Garcia on 10/18/2023, doing well at that time - History of focal epilepsy, last seizure on 01/23/2023 - Minor seizure occurred following lithotripsy procedure, with vomiting the night prior - History of seizures associated with UTIs or surgical procedures - Recent seizure-like episodes on 05/12/2024 and 05/13/2024 - Prodromal symptoms: chin quivering, lip movement on one side, difficulty speaking clearly - reports eye movements during episodes - No post-ictal weakness or energy level changes - Recent UTI diagnosed on 05/24/2024, complicated by MRSA - Catheter-related issues: fell out on 05/26/2024, requiring ER visit - Trial of catheter removal at [place], but persistent infection noted - Current antibiotic treatment for ongoing UTI - Appetite significantly decreased over the past 4 weeks - Weight loss noted: from 118 lbs to current weight of 102.7 lbs (with clothes) - Mood affected: sick of being sick and feeling weak - No alcohol use ?? Past Medical History: - Focal epilepsy - Cerebral infarction involving the middle cerebral artery (09/26/2019) - Dementia with behavioral disturbances - Prostate cancer - Non-Hodgkin's lymphoma - Epidural hematoma - Tobacco abuse (history) - Thrombocytopenia - Subarachnoid hemorrhage (06/2021) - Multiple kidney stones, history of lithotripsy - Subdural hematoma ?? Medications: - Lacosamide 200 mg (4 tablets) twice daily - Nasal rescue medication (Midazolam spray) - Recent antibiotic for UTI (specific antibiotic not mentioned) - Previously on Mirtazapine (discontinued due to side effects) ?? Social History: - Lives with of 53 years - Daughter involved in care ? Review of Systems The patient denies any additional neurologic, psychiatric, head, ears, eyes, nose, throat, pulmonary, cardiovascular, gastrointestinal, musculoskeletal, skin, endocrine, renal, immunological, allergic, lymphoid, rheumatologic??and hematological symptoms other than those noted above. Physical Exam Vitals & Measurements HR:??74??(Peripheral)?? BP:??137/69?? WT:??46.63??kg?? Frail??appearing??elderly white male??who is??Alert and oriented x 3 Good eye contact, EOMI with lid edema or scleral injection Seated in wheelchair. Difficulty getting up from seated position -needs assistance Hoarse voice but speech??is??fluid Proximal weakness at level of thigh bilaterally Medical Decision Making: REVIEW OF PRIOR RECORDS 02/08/23 ? Partial symptomatic epilepsy with complex partial seizures, not intractable, without status epilepticus??G40.209 ??January ?january ? This very pleasant gentleman comes for follow-up evaluation of his epilepsy.?? He comes with his wonderful NYDIA. ?? I had last seen him in December 2022 for clearance for his??renal surgery. ??He had been doing well. ?? Then??on January 20, 2023 he was here at [facility] for UTI.?? Then on January 23 he had a minor seizure and he went to [facility]?his says that the seizure got controlled with intranasal midazolam. ?? He has been asked to drink a lot of water. ??I emphasized with this to the patient.?? By drinking lots of water he can get rid of??small kidney stones.?? He expressed understanding. ?? I reviewed the notes from [facility] from January 23, 2023. ?? He is taking lacosamide 200 mg twice daily. ??He takes the 50 mg tablets 4 tablets twice daily. ? December ?December ??This very pleasant gentleman comes with his wonderful yNdia. ?? I had recently done a telehealth visit on December 19, 2022.?? He had a couple of minor seizures??after he had lithotripsy??on??December 14, 2022. ?? He has been doing well. ?? My suspicion is that the stressors associated with the surgery including dehydration,??the??lack ofsleep,??other medication interactions??probably triggered the seizures. ?? I had a long discussion with the patient and his . ?? He is currently taking??lacosamide??50 mg tablet--4 tablet twice daily.?? This equals about 200 mg??twice daily. ?? I have cleared him for surgery??and have advised him that on the day of the surgery he will take anextra 100 mg in the morning??and an extra 100 mg in the evening of the lacosamide. ? A separate note was written for clearance for surgery. ?? They will call me should they have any questions or concerns ?? 12/19/2022 ?.??Partial symptomatic epilepsy with complex partial seizures, not intractable, without status epilepticus??G40.209 ?November ?? I had last seen this gentleman in July 2022. ??His last seizure was in June 2022. ?He has been doing well on lacosamide??50 mg--4 tablets twice daily??that is 200 mg twice daily. ? I spoke with patient and patient's .?? The patient had??lithotripsy??at??[facility] in [place]??on December 14, 2022.?? He had been n.p.o. the whole day.?? Then in the evening he ate some spaghetti.?? After that he vomited around 10 PM.?? Then he slept at night. ??Then around 4 AM inthe morning??he had woke up and he was sitting and he had difficulty pronouncing his 's name.?? The went to get the??rescue while toco??but by that time the seizure ended. ??There was no??convulsions.?? He was brought here to the [facility]. ??His drove him.?? He was seen by Dr. Jesi Tello.?? He had labs and urinalysis and everything was good. ??He was discharged. ?? The patient went home and about??half an hour later he had a similar episode that he just started off and had difficulty??speaking the words. ??He was brought here again to the emergency room. ??He was seen by Dr. Dubose. ??Dr. Dubose called me.?? I suggested giving him 100 mg of lacosamide at the time. ?? No seizures since then. ? Long discussion with patient and his . ?? He should continue with lacosamide??50 mg--4 tablets twice daily??which is 200 mg twice daily. ? I told his should he have any infection like a UTI or fever or respiratory ?infection orany surgical procedure??he should be given EXTRA 100MG-- LACOSAMIDE ??in am and pm totalling ----??300 mg in the morning and 300 mg in the evening on the day of the procedure.?? This should hopefullytake care of his??seizures. ??She expressed understanding. ?? Unfortunately he was scheduled for??lithotripsy procedure again on December 21. ??But that has been postponed. ??They want clearance from me.?? I will see the patient on??December 22 and clear him for surgery??with about recommendations. ??She expressed understanding. ?? Continue Valtoco spray as needed for??rescue medication and seizures. ??I also sent a prescription for Nayzilam.?? They can use either one of them for rescue ?.??Partial symptomatic epilepsy with complex partial seizures, not intractable, without status epilepticus??G40.209 ?July ?July This very pleasant gentleman comes to my office accompanied by his wonderful caring Nydia. ?? I spoke with him over the phone in early part of June after he had a seizure on??June 20, 2022??they went to emergency room and [facility].?? He has been doing well no further seizures. ??His seizures happen usually after he has a UTI and high fever. ?? I discussed with him about the possibility of using a nasal spray of diazepam called VALTOCO. ?? [facility]. ?? They will be contacting Dr. Montoya for some approval on this. ?? I reviewed the CT brain with him. ? No further seizures. ??They are happy with the current control??and??seizure medications ?June 27, 2022. ?? I spoke to patient and his .?? I had last seen him January 2022. Patient's says that he had a very minor seizure??on June 20, 2022.?? He felt like he was going to have the seizure.?? He laid down on his side. ??They decided to call 911. ??There was no shaking. ??He was still able to talk.?? He was awake all the time.?? He was watching some news on his laptop.?? 1 week prior to that he had had UTI with high fever but he had no seizures.?? Generally has seizures when he has high fever or UTI. ?? They went to [place] emergency department.?? They did not give any medications.?? They checked his lacosamide level which was 11.8. ??The normal ranges 1-10. ?? About 2 days after the emergency department visit on June 22??patient's found that he had abedsore and an ankle sore. ?? He continues on lacosamide 50 mg--4 tablet twice daily. ?? I suggested??wall toco nasal spray??which she could use and avoid visits to the??emergency department. ??They are interested in it. ??Its unclear if the [facility] will approve. ??We will see what we can do. ? JANUARY 2022 ?1. 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 Mental status change resolved - Z86.59, Secondary to sepsis from UTI admitted on August 25, 2020 and discharged on August 2020 ?3. Dementia with behavioral disturbance, unspecified dementia type - F03.91, ?4. Thrombocytopenia - D69.6, secondary to depakote; 40k in November 2020 [facility] ?5. Subdural hematoma, acute - S06.5X9A, August S/P MIDDLE MENINGEAL ARTERY EMBOLIZATION AT [facility] ?6. Cerebral infarction involving middle cerebral artery - I63.519, right MCA infarct 09/26/19; RIGHT FRONTOPOLAR INFARCT ?7. History of non-Hodgkin's lymphoma - Z85.72 ?8. CA prostate, adenoca - C61 ?9. Abnormal electroencephalogram (EEG) - R94.01, Continuous slow lateralized right; SHARPREGIONAL RIGHT TEMPORAL ( 07/22/20) ?10. Bradycardia - R00.1, EKG 12/16/20 Neurology clinic; short MI interval; BRADYCARDIA 50-asymptomattic; QRS prolonged at 0.15s ?11. Adverse effect of unspecified drugs, medicaments and biological substances, initial encounter - T50.905A ?12. Other secondary thrombocytopenia - D69.59 ? January This gentleman was referred from [facility] after the patient presented there on December 12, 2021 with a breakthrough seizure and urinary tract infection.?? Patient's gives a very good description. On December 12, 2021. Patient says that he felt like he was going to have a seizure that day. They had driven and come back home. As he was sitting in the car he said that he felt like he was going to have a seizure patient's went to the door and she had she came back she saw him stiffening up and having a generalized tonic-clonic seizure. She called 911. I reviewed the emergency department visit note by Rajinder Burger MD. He takes lacosamide 50 mg tablet 4 tablets in the morning and 4 tablets in the evening. The physician's note mentions that patient presents with possible seizure with no loss of consciousness, slightly tearful anxious and complains of feeling lightheaded. The ED physician noted a slightweakness in his left upper and left lower extremity. He did find evidence of UTI. CT brain showed right frontal and temporal encephalomalacia. All labs were normal except for urinary analysis. The urinary analysis showed 50 WBCs in the urine.Subsequently urine culture showed Pseudomonas aeruginosa. He was treated for this. Prior to the seizure on December 12, 2021 he had not had a seizure in a very long time. I had a long discussion with the patient and his .?? We strongly believe that the UTI triggered the seizure in this gentleman. We discussed whether we should increase the dose of lacosamide. He is on 400 mg/day. The maximum dose is 600 mg/day. We mutually agreed to sit tight. He has not had any seizures in a long time. The lacosamide seems to be working. August This pleasant gentleman comes with his wonderful . I had last seen him on July 25, 2021 in my office. Unfortunately he subsequently got admitted on August 25, 2021 with altered mental status probably due to a urinary infection. I reviewed Dr. Alfredo Bee [facility] notes and also the discharge summary from August 28, 2021. on August 28, 2021, he took 2 and 1/2 hours. he was holding the medication in his mouth and drooling.?? ON aug, he was drooling again and took 2 hours aug 30-- took 1 hour. aug 31-- normal in taking his meds Since Aug onwards, he takes his meds ok. he has had a lot of confusion In reviewing the records from Dr. Corey Dubose, emergency department on August 25, 2021, it appears that the patient was doing okay on August 24. He ate his dinner. He had vomiting. He went to bed with profound fatigue. He woke up on the morning of August 25 and his hands were shaking and he felt quite warm. EMS was called and his temperature was high at 107F. There was continued centimeters sediment in the Mckeon catheter. And there was suprapubic tenderness and distention. The patient was then admitted with elevated white count sepsis and infectious encephalopathy. The patient was treated initially with IV Rocephin. Subsequently the antibiotic was changed to intravenous ciprofloxacin after the cultures came back. In reviewing the records it appears that the patient was quite pleasant during the day in the hospital stay but subsequently in the evenings he would become somewhat confused agitated and combative. He would threaten the hospital staff and he would threaten to harm himself. He had to be given Haldol and within an hour of getting the Haldol he would fall asleep. He was also refusing to change his urinary catheter which was dirty. Subsequently after his convinced him he changed it. He came in a wheelchair today.. He appears awake alert and reasonably oriented. But when I discussed with him about the surgery in 2020 for his subdural hematoma he seems to have forgotten that. My concern is that he may be developing dementia. I spoke with his in great detail separately as the patient was getting a little upset about the diagnosis of dementia. It is possible that the combination of the right frontal infarction in 2019 and the subsequent subdural hematoma in 2020 and the subsequent surgery have left him with some features of dementia. We will keep a watch on this He has an appointment with urologist at [facility] on Sunday, September 05, 2021 I told the patient and his that we will keep the communication channels open and will keep in touch if agitation gets worse we will start him on donepezil and we may even use quetiapine REVIEW OF PRIOR RECORDS July ' This very pleasant gentleman comes with his wonderful . He had telemedicine visit with me in January. Unfortunately in later part of January 2021 he had a fall just outside in the hospital complex and he was taken to the emergency room where he had a mild subarachnoid hemorrhage and a subdural hemorrhage and a left posterior frontal contusional bleed. He was transferred to [facility]. He was treated conservatively and discharged. About 3- 4 weeks ago he had sepsis due to UTI.. He recently had CT of his brain done again in June 2021 which thankfully did not show any new bleeds. He still continues to have a small amount of chronic left subdural hematoma When he was at [facility] he had a mild seizure and hence his lacosamide was increased from 100 mg twice daily to 200 mg twice daily. He currently takes lacosamide 50 mg 4 tablets twice daily APPRECIATE 's kind phone call and taking the time to discuss with me. Thank you so very much for Dr. Camarillo's kind letter I had of this gentlemen's appointment and explaining that you had started him on lacosamide and titrated up to a 50 mg 2 tablet twice daily due to his drop in hemoglobin and white count and thrombocytopenia. I really appreciate you taking the time to call me and discuss with me. This very pleasant gentleman and his wonderful are coming for an appointment here as a follow-up of his recent visit to the emergency department on December 07, 2020 for severe headache that happened in the morning at [facility] .but subsequently was diagnosed with lethargy, UTI and dehydration and then transferred to [place] for bradycardia. He was also found to have on a CT of his abdomen and pelvis distended bladder, pyelonephritis and a renal cyst which may be concerning for renal cell carcinoma. He has an appointment with urology for evaluation of this. During the hospital stay here at [facility] on December 07 and and 2020, he was found to have UTI due to Proteus. Dr. Tse put him on Cipro. He had bradycardia. Dr. Tse stopped the Cipro as he was concerned that this was causing the bradycardia and switched him to Pricila aragon got him transferred to [facility] in [place]. Dr. Camarillo, neurologist at the [facility] evaluated him and stop the Depakote due to thrombocytopenia of 40 K and switched him to lacosamide. He was very kind and he called and discussed with me..He said that he thought of lamotrigine but that titration will take a long time. Lacosamide is not a preferred drug in the [place] but Dr. Camarillo has been very kind and gracious to take care of the pres ription for the next 6 months. He is currently on lacosamide 50 mg 2 tablet twice daily. He is hoping that he would get the 100 mg tablets very soon. I discussed with Dr. Roth and we mutually agreed to sit tight on the 100 mg twice daily and not increase it. I will see him in follow-up in a month His Nydia tells me that he woke up that morning with a severe head ache. He was transferred by ambulance to [facility]. This gentleman was found to be very dehydrated. I reviewed the discharge summary by Dr. Toby Tse hospitalist. The patient's tells me that apparently he had extensive work-up at [place] where at the [facility] he was transferred on December 08Wednesday. He was there till December 11Wednesday. It looks like he was switched from Depakote to lacosamide during the hospital stay from December 08 December 11, 2020 at the [facility].. I reviewed his CT brain from December 07, 2020 and the subdural hematomas is very minimal and is almost gone Dr. Camarillo, neurologist at the [facility] evaluated him and stop the Depakote due to thrombocytopenia of 40 K and switched him to lacosamide. He was very kind and he called and discussed with me..He said that he thought of lamotrigine but that titration will take a long time. Lacosamide is not a preferred drug in the [place] but Dr. Camarillo has been very kind and gracious to take care of the presc ription for the next 6 months. He is currently on lacosamide 50 mg 2 tablet twice daily. He is hoping that he would get the 100 mg tablets very soon. I discussed with Dr. Roth and we mutually agreed to sit tight on the 100 mg twice daily and not increase it. I will see him in follow-up in a month ?? He is doing well; repeat CT brain in 09/2020 at [facility] showed decrease in the amout of SDH. This was sent to Dr. Delgado, neurosurgeon at [facility]. They had spoken with patient and was todo a repeat CT brain in end of December 2020. This gentleman had an acute left subdural hematoma on August 26, 2020. I saw him in the emergency department. He was transferred to [facility]. At [facility] because he was neurologically stable they did not evacuate the hematoma. They had the interventional radiology team Dr.Mohammed Worley do middle meningeal artery embolization--MMA. They stopped his Plavix at [facility]. They discontinued his Keppra and started him on Depakote liquid. He was initially having some delirium but that seems to have settled down and is doing much better. I got a note from Dr.Hormzdiyar Lizeth ambrosio , Floorperson of neurosurgery and director of the cerebrovascular program at [facility] after his telemedicine visit on September 19, 2020. He has recommended a CT of the brain and to push the images of the CT brain to and Dr. Epps. He has an appt with Dr. Delgado on 10/11/20 - Telemediicine. We will try our best to get the CT brain prior to that. He was found on the floor upstairs by his on July 13 2020 and he was brought to the emergency department. CT brain showed the previous stroke in September 2019 in the right frontopolar area. He was admitted overnight and was put on Keppra 750 mg twice daily. His says that initially became very irritable and angry but now his behavior has settled down. EEG done on July 22, 2020 showed continuous low lateralized right hemisphere and sharp waves few of them seen right temporal/ No further seizures and is doing well. Long discussion with patient and his . He had an acute right fronto polar MCA infarct 09/26/19. Please see my consult note of 09/27/19 scanned into the chart. He came to ED on 09/26/[address] Sales had called me . He was very close to about 24 hours from onset of symptoms and was out of any window. [facility] did not have beds. He was not taking aspirin on a regular basis before the stroke. He has some LEFT UE weakness of 4/5 when I saw him initially and he has improved quite well. He was at [facility] for acute rehab. He was put on aspirin + plavix. He says he is bruiging a lot CT brain and MRI kim showed right MODERATE SIDED RIGHT FRONTOPOLAR INFARCT CTA brain and neck normal ECHO NORMAL Long discussion. ?? He had a seizure-generalized tonic-clonic seizure on December 12, 2021. He was seen in the emergency department at [facility]. His urine analysis showed 50 WBCs and the culture grew Pseudomonas aeruginosa. We strongly believe that the UTI triggered the seizure in this gentleman. We discussed whether we should increase the dose of lacosamide. He is on 400 mg/day. The maximum dose is 600 mg/day. We mutually agreed to sit tight. He has not had any seizures in a long time. The lacosamide seems to be working. No seizures on Lacosamide 50mg --4tab BID. 1. continue aspirin 2. NO PLAVIX FOR NOW 3. CONTROL of stroke risk factors already being addressed by 4. No driving 5. CONTINUE LACOSAMIDE 50MG -- 4TAB BID. ; TOTAL 400MG/DAY Dr. Camarillo has been very kind and gracious to take care of this prescription through the [place]. he informed me that he has 6 refills. 6 Discussed LOOP RECORDER ; could make referral to [facility] ; need to r/o paroxyamal A fib.;Will discuss in January 22, 2002 1 7. Depakote induced thrombocytopenia 8. Lacosamide can cause prolonged MI interval and other cardiac disturbances. We got an EKG December 16, 2020 and it shows sinus bradycardia 50 and a short MI interval of less than 110 ms and a prolonged QRS of 0.15 ms. ?[1] ? This very pleasant gentleman comes to my office accompanied by his wonderful caring Nydia. ?? I spoke with him over the phone in early part of June after he had a seizure on??June 20, 2022??they went to emergency room and SCR .?? He has been doing well no further seizures. ??His seizures happen usually after he has a UTI and high fever. ?? I discussed with him about the possibility of using a nasal spray of diazepam called VALTOCO. ?? I have sent a prescription for that to the [place] in [facility]. ?? They will be contacting Dr. Montoya for some approval on this. ?? I reviewed the CT brain with him. ? No further seizures. ??They are happy with the current control??and??seizure medications ?November ?? I had last seen this gentleman in July 2022. ??His last seizure was in June 2022. ?He has been doing well on lacosamide??50 mg--4 tablets twice daily??that is 200 mg twice daily. ? I spoke with patient and patient's .?? The patient had??lithotripsy??at??[facility] in [place]??on December 14, 2022.?? He had been n.p.o. the whole day.?? Then in the evening he ate some spaghetti.?? After that he vomited around 10 PM.?? Then he slept at night. ??Then around 4 AM inthe morning??he had woke up and he was sitting and he had difficulty pronouncing his 's name.?? The went to get the??rescue while toco??but by that time the seizure ended. ??There was no??convulsions.?? He was brought here to the [facility]. ??His drove him.?? He was seen by Dr. Jesi Tello.?? He had labs and urinalysis and everything was good. ??He was discharged. ?? The patient went home and about??half an hour later he had a similar episode that he just started off and had difficulty??speaking the words. ??He was brought here again to the emergency room. ??He was seen by Dr. Dubose. ??Dr. Dubose called me.?? I suggested giving him 100 mg of lacosamide at the time. ?? No seizures since then. ? Long discussion with patient and his . ?? He should continue with lacosamide??50 mg--4 tablets twice daily??which is 200 mg twice daily. ? I told his should he have any infection like a UTI or fever or respiratory infection or any surgical procedure??he should be given 300 mg in the morning and 300 mg in the evening on the day of the procedure.?? This should hopefully take care of his??seizures. ??She expressed understanding. ?? Unfortunately he was scheduled for??lithotripsy procedure again on December 21. ??But that has been postponed. ??They want clearance from me.?? I will see the patient on??Wednesday, December 22 and clear him for surgery??with about recommendations. ??She expressed understanding. ?? Continue Valtoco spray as needed for??rescue medication and seizures. ??I also sent a prescription for Nayzilam.?? They can use either one of them for rescue ?. ? PLAN: ?? 10/18/23 ?? This very pleasant gentleman comes for follow-up evaluation of his focal epilepsy with his wonderful Nydia. ?? His last seizure was on January 23, 2023.?? This was some minor seizure and had gone to [facility]?? Prior to that he had a seizure??after he had lithotripsy in November. ??The following day??he had a seizure. ??But that previous night he had vomited. ?? Usually has seizures whenever there is UTI or surgery.?? I have asked his to increase the doseof lacosamide anytime??that this infection or if he is going to have surgery.?? He is planned to have??a renal??surgery to remove the stone??on??October 21, 2023??at [facility]. ?? He is currently taking lacosamide 50 mg--4 tablets twice daily. ?? I have told patient's to give him??5 tablets in the morning??and 5 tablets in the evening??that is 250 mg twice daily on the day of the surgery. ??She expressed understanding. Assessment/Plan 1.??Partial symptomatic epilepsy with complex partial seizures, not intractable, without status epilepticus??G40.209 ??Impression & Plan: 1. Focal Epilepsy - Currently stable on Lacosamide 200 mg (4 tablets) twice daily - Continue current dosage - Increase to 250 mg (5 tablets) twice daily on day prior to surgery or with infections - Continue use of nasal rescue medication (Midazolam spray) as needed - Monitor for changes in seizure frequency or presentation - Educate on factors that may lower seizure threshold (infections, sleep disturbances) ?? 2. Recurrent Urinary Tract Infections - Recently treated for MRSA UTI - Emphasize importance of hydration to prevent recurrence - Encourage increased fluid intake, including flavored options if preferred - Monitor for signs of recurrent infection ?? 3. Weight Loss and Decreased Appetite - Significant weight loss noted - Advised f/u with??primary care for evaluation of appetite stimulants (e.g., megestrol) - Encourage protein intake to maintain muscle mass and energy levels ?? 4. Dementia with Behavioral Disturbances - No acute issues mentioned-Denies hallucinations or significant mood changes -short term problematic particularly w/ UTI - Continue current management ?? 5. Follow-up Plan - Schedule follow-up appointment in 6 months - Advise to seek medical attention promptly for any concerning symptoms or changes in condition ?? 6. Medication Management - Ensure adequate refills on all current medications - PCP Discontinued Mirtazapine due to side effects (stress dreams) ?? 7. Care Coordination - Coordinate care with [place] providers and local community care options - Utilize [facility] for emergencies under community care program ?? 2.??Cerebral infarction involving middle cerebral artery??I63.519 ?? 3.??Dementia with behavioral disturbance??F03.918 Ordered: CBC w/ Diff, Blood, Routine, *Est. 12/14/24 +/- 100 days, Once, Nurse collect, Frail elderly Fatigue Long-term current use of anticonvulsant Dementia with behavioral disturbance, Order for future visit Comprehensive Metabolic Panel, Blood, Routine, *Est. 12/14/24 +/- 100 days, Once, Nurse collect, Frail elderly Fatigue Long-term current use of anticonvulsant Dementia with behavioral disturbance, Order for future visit Vitamin B12 & Folate Level, Blood, Routine, *Est. 12/14/24 +/- 100 days, Once, Nurse collect, Frail elderly Fatigue Long-term current use of anticonvulsant Dementia with behavioral disturbance, Order for future visit Vitamin D 25 Hydroxy Level, Blood, Routine, *Est. 12/14/24 +/- 100 days, Once, Nurse collect, Frailelderly Fatigue Long-term current use of anticonvulsant Dementia with behavioral disturbance,Order for future visit ?? Orders: lacosamide 50 mg oral tablet, 200 mg = 4 tab, Oral, BID, may take 2 extrat tablets ( 100mg ) if anyUTI, fever or any surgical procedure, # 240 tab, 5 Refill(s), Pharmacy: [facility], 70.5, cm, 10/18/23 11:31:00 EST, Height, 46.63, kg, 06/15/24 11:26:00 EDT... Nayzilam 5 mg/inh nasal spray, 1 sprays, Nasal, Once, 1 nasal spray in one nostril prn convulsive seizure; may repeat once in 10 minutes if another seizure, # 2 EA, 0 Refill(s), Pharmacy: [facility], 70.5, cm, 10/18/23 11:31:00 EST, Height, 46.63, kg, 06/15/... CBC w/ Diff, Blood, Routine, *Est. 06/16/24 +/- 60 days, Once, Nurse collect, Long-term current useof anticonvulsant, Order for future visit Comprehensive Metabolic Panel, Blood, Routine, *Est. 06/16/24 +/- 60 days, Once, Nurse collect, Long-term current use of anticonvulsant, Order for future visit Risks, Benefits , alternatives and complications discussed with the patient. All questions were answered to patient satisfaction at time of visit. I personally spent a total of??48??minutes??providing direct??care for this patient on the date of the encounter. Time included??Preparing to see the patient (e.g., review of tests), Performing medically necessaryappropriate exam and/or evaluation, Counseling and educating the patient/family/caregiver, Orderingmedications, tests, or procedures, Referring and communicating information in the EHR or other health records, Independently interpreting results and communicating results to patient/family/caregiver, Care coordination Future Orders CBC w/ Diff, Blood, Routine, *Est. 06/16/24 +/- 60 days, Once, Nurse collect, Long-term current useof anticonvulsant, Order for future visit CBC w/ Diff, Blood, Routine, *Est. 12/14/24 +/- 100 days, Once, Nurse collect, Frail elderly Fatigue Long-term current use of anticonvulsant Dementia with behavioral disturbance, Order for future visit Comprehensive Metabolic Panel, Blood, Routine, *Est. 06/16/24 +/- 60 days, Once, Nurse collect, Long-term current use of anticonvulsant, Order for future visit Comprehensive Metabolic Panel, Blood, Routine, *Est. 12/14/24 +/- 100 days, Once, Nurse collect, Frail elderly Fatigue Long-term current use of anticonvulsant Dementia with behavioral disturbance, Order for future visit Vitamin B12 & Folate Level, Blood, Routine, *Est. 12/14/24 +/- 100 days, Once, Nurse collect, Frail elderly Fatigue Long-term current use of anticonvulsant Dementia with behavioral disturbance, Order for future visit Vitamin D 25 Hydroxy Level, Blood, Routine, *Est. 12/14/24 +/- 100 days, Once, Nurse collect, Frailelderly Fatigue Long-term current use of anticonvulsant Dementia with behavioral disturbance,Order for future visit Problem List/Past Medical History Ongoing Abnormal electroencephalogram (EEG) Benign prostatic hypertrophy with outflow obstruction Bradycardia CA prostate, adenoca Cerebral infarction involving middle cerebral artery Cerebrovascular accident (CVA) Dementia with behavioral disturbance History of non-Hodgkin's lymphoma Non-Hodgkins lymphoma Partial symptomatic epilepsy with complex partial seizures, not intractable, without status epilepticus Personal history of radiation therapy Prostate cancer Seizure Subdural hematoma, acute Thrombocytopenia Tobacco user Historical Mental status change resolved Morbid obesity Medications atorvastatin 40 mg oral tablet, 80 mg= 2 tab, Oral, Daily cephalexin 500 mg oral capsule D3 25 mcg (1000 intl units) oral tablet, 25 mcg= 1 tab, Oral, Daily lacosamide 50 mg oral tablet, 200 mg= 4 tab, Oral, BID, 3 refills lacosamide 50 mg oral tablet, 200 mg= 4 tab, Oral, BID, 5 refills melatonin 3 mg oral tablet, 3 mg= 1 tab, Oral, every night at bedtime, PRN Nayzilam 5 mg/inh nasal spray, 1 sprays, !-Nasal, Once nitrofurantoin macrocrystals-monohydrate 100 mg oral capsule, 100 mg= 1 cap, Oral, BID Probiotic Formula (Bacillus Coagulans) oral capsule, 1 cap, Oral, Daily tamsulosin 0.4 mg oral capsule, 0.8 mg= 2 cap, Oral, Daily Allergies contrast media (gadolinium-based) Social History Electronic Cigarette/Vaping Electronic Cigarette Use: Never. Tobacco Current everyday tobacco user, Current some day tobacco user Tobacco Use:. 1 pk daily per day. Total pack years: 365. Electronically Signed on 06/15/2024 12:15 EDT TRELL Porter- Patient Care team information Care Team Personnel Name: KYRA VELASQUEZ MD Position: No Access Member Role: Primary Care Physician Address: [facility] [address] [place] [address]- Care Team Related Persons Name: MARIE LOYD Insurance Providers Guarantor name: GALINA LOYD Health Plan Information #: 2 Payer: [facility] [employer] Member Number: [id number] Policy Number: NA Health Plan Information #: 1 Payer: [place] [employer] [employer] Member Number: [id number] Policy Number: NA
--- OUTSIDE RECORDS SUMMARY | 2024-07-07 22:31 | XMS_ITS | Encounter Summary ---
Author Organization [facility]ly [facility] [place] [address] Care Team Providers Care Development Specialist Name Role Phone Amanda Pino Primary Care Provider [phone] Encounter Details Date Type Department Care Team (Late st Contact Info) Description 11/23/2023 Telephone Urology at [facility] [place] [phone] Donna Ramsey RN Social History Tobacco Use [...] - 11/23/2023 5:07 PM EDT Copied from [facility] #[id number]. Topic: Specialty Dept CRMs - Generic Call [...] AM EDT Office Visit Radiation Oncology at [address] [phone] Taya De La Vega PA [facility] [address] [place] [address] 11/13/2024 2:00 PM EDT Office Visit Hematology/Oncology at [address] [phone] Kirt Kennedy MD [facility] DR [place] [address] Alem Lazaro APRN [address] [place] [address] DR HEMATOLOGY AND ONCOLOGY [place], [place] [id number] documented as of this encounter Visit Diagnoses Not on filedocumented in this encounter Care Teams Development Specialist Relationship Specialty Start Date End Date Amanda Pino PA [address] [place] [address] PCP - General Internal Medicine 04/28/23 documented as of this encounter
--- OUTSIDE RECORDS SUMMARY | 2024-07-07 22:31 | XMS_ITS | Referral Summary ---
Author Organization [facility] Address [address] [place] [address] Care Team Providers Care Baseball Hand Sewer Name Role Phone Alfredo Montoya Primary Care Provider Social History Tobacco Use Types Packs/Day Years Used Date Smoking Tobacco: Never Assessed Sex and Gender Information Value Date Recorded Sex Assigned at Not on file Legal Sex Male 16:57 EDT Gender Identity Not on file Sexual Orientation Not on file Plan of Treatment Not on file Insurance [employer] MEDICARE IN Care Teams Baseball Hand Sewer Relationship Specialty Start Date End Date Alfredo Montoya DO [address] [place] [id number] PCP - General Internal Medicine - Primary Care 05/23/21
--- OUTSIDE RECORDS SUMMARY | 2024-07-07 22:31 | XMS_ITS | Encounter Summary ---
Author Organization [facility] Address [facility] [place] [address] Care Team Providers Care Batch Maker Name Role Phone Amanda Pino Primary Care Provider [phone] Encounter Details Date Type Department Care Team (Late st Contact Info) Description 11/15/2023 2:30 PM EDT Office Visit Hematology/Oncology at [address] [phone] Kirt Kennedy MD [facility] DR HEMATOLOGY [place] [address] Alem Lazaro APRN [address] [place] [address] DR HEMATOLOGY [place] [address] Follicular lymphoma, unspecified grade, unspecified [...] original note were not included. [place] [address] [phone] Narcisa Eduardo is being seen for the evaluation of follicular lymphoma. Assessment & Plan: Narcisa Eduardo is a 78 y.o. male patient with a PMH of an abdominal aortic aneurysm, thoracic aortic aneurysm, hypertension, prior alcohol abuse, tobacco abuse, a stroke in early 2019 and follicular lymphoma who completed EBRT for localized prostate cancer 04/2020 who wishes to followup here in [facility] for his lymphoma rather than at the [facility] given the proximity to his home. He [...] assist sooner should anychanges arise Alem Lazaro, FOLLOW UP MANAGER 11/15/2023 Thoracic Oncology [facility] CC: MARISOL Munoz FOLLOW UP MANAGER HPI/Interval History/Subjective: Last seen October 2022 Accompanied [...] History/Support Network: Home situation: Lives with in [facility] Employment: Tobacco use: Rolls his own cigarettes. 3/ ppd. X30-40 years Alcohol use: Stopped drinking in 09/2019 after a stroke when he was placed on Plavix Drug use: None Loves gardening but can't do it any more. service: [employer]. [place] Era. Had Agent [place] Exposure. 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 [facility] by Dr. Martha Castañeda - PET-CT 11/26/15 [...] 9. Personal History of Exposure to [place] No data to display Patient Active Problem List Diagnosis Date Noted Nephrolithiasis 10/21/2023 Severe protein-calorie malnutrition 02/25/2021 Trauma 02/18/2021 Brain aneurysm 09/09/2020 Intracranial bleed 09/02/2020 Malignant neoplasm of prostate 01/05/2020 Follicular lymphoma 04/03/2015 Allergies Allergen Reactions Contrast [Iodine And Iodide Containing Products] Hives Depakote [Divalproex] Other (See Comments) Thrombocytopenia and spontaneous bleeding Medications 11/15/23 0331 Medication Sig Taking? fluconazole (Diflucan) 200 mg [...] WBC 12.08, H/H 13.2/40.9, plt 242, ANC 54536, Ca 9.3, Glucose 157, BUN 12, Creat [...] cell count normal at 6.0, hemoglobin 14.7 [id number] absolute neutrophil count 4.6 absolute lymphocyte count [...] left inguinal node 03/18/15; taken from the [facility] pathology report - Follicular lymphoma NOTE: Sections [...] AM EDT Office Visit Radiation Oncology at [address] [phone] Taya De La Vega PA [facility] DR HEMATOLOGY [place] [address] 11/13/2024 2:00 PM EDT Office Visit Hematology/Oncology at [address] [phone] Kirt Kennedy MD [facility] DR HEMATOLOGY [place] [address] Alem Lazaro APRN [address] [place] [address] DR HEMATOLOGY AND ONCOLOGY [place], [place] [address] Scheduled Orders Name Type Priority Associated Diagnoses [...] region documented in this encounter Care Teams Batch Maker Relationship Specialty Start Date End Date Amanda Pino PA [address] [place] [address] PCP - General Internal Medicine 04/28/23 documented as of this encounter
--- OUTSIDE RECORDS SUMMARY | 2024-07-07 22:31 | XMS_ITS | Encounter Summary ---
Author Organization [facility] Address [facility] [place] [address] Care Team Providers Care Sign Builder Supervisor Name Role Phone Amanda Pino Primary Care Provider [phone] Encounter Details Date Type Department Care Team (Late st Contact Info) Description 11/24/2023 Telephone [place] [phone] Adan Navarrete Jr., MD [facility] [place] [address] Social History Tobacco Use Types Packs/Day Years [...] left renal stones not yet addressed). However, [facility] did not extend approval for surgicalcare here at [facility], and after discussion with [facility] chief of urology Dr Smith, I was informed they could perform the bilateral ureteroscopy at the [facility] and thus did not need intervention at [facility]. I explained to patient and his that they will need to pursue follow up at [facility] for 2nd look ureteroscopy and stent removal/exchange, but offered that I would be happy to be available at [facility] at any time if they cannot arrange timely follow up at the [facility]. Stets were placed 10/21/23, Demario recommended stents should be removed or exchanged within maximum 10-12 weeks They agree to call us if needed if stents not addressed in that time frame documented in this encounter Plan of Treatment Upcoming Encounters Date Type Department Care Team (Late st Contact Info) Description 11/09/2024 10:30 AM EDT Office Visit Radiation Oncology at [address] [phone] Taya De La Vega PA [facility] DR [place] [address] 11/13/2024 2:00 PM EDT Office Visit Hematology/Oncology at [address] [phone] Kirt Kennedy MD [facility] HEMATOLOGY [place] [address] Alem Lazaro APRN [address] [place] [address] DR HEMATOLOGY AND ONCOLOGY [place], [place] [phone] documented as of this encounter Visit Diagnoses Not on filedocumented in this encounter Care Teams Sign Builder Supervisor Relationship Specialty Start Date End Date Amanda Pino PA [address] [place] [address] PCP - General Internal Medicine 04/28/23 documented as of this encounter
--- OUTSIDE RECORDS SUMMARY | 2024-07-07 22:31 | XMS_ITS | Encounter Summary ---
Author Organization [facility] [place] [address] Care Team Providers Care Roll Edge Machine Operator Name Role Phone Amanda Pino Primary Care Provider [phone] Encounter Details Date Type Department Care Team (Late st Contact Info) Description 11/15/[address] [facility] [place] [phone] Donna Ramsey RN Social History Tobacco Use [...] EDT Faxed urine culture order to [facility] at [phone] * Telephone Encounter - Donna Ramsey RN - 11/15/2023 11:35 AM EDT Copied from [facility] #[id number]. Topic: Specialty Dept CRMs - Generic Call >> Nov 15, 2023 11:28 AM Charlotte Muñiz wrote: Specialist: Landon Relationship (if other than patient-full name): Marisol Barrientos [facility] Reason for Call: patient is at the lab, please send over urine order Urine culture (Order [id number]) documented in this encounter Plan of Treatment Upcoming Encounters Date Type Department Care Team (Late st Contact Info) Description 11/09/2024 10:30 AM EDT Office Visit Radiation Oncology at [address] [phone] Taya De La Vega PA [facility] DR HEMATOLOGY [place] [address] 11/13/2024 2:00 PM EDT Office Visit Hematology/Oncology at [address] [phone] Kirt Kennedy MD [facility] DR HEMATOLOGY [place] [address] Alem Lazaro APRN [address] [place] [address] DR [place] [address] documented as of this encounter Visit Diagnoses Not on filedocumented in this encounter Care Teams Roll Edge Machine Operator Relationship Specialty Start Date End Date Amanda Pino PA [address] [place] [address] PCP - General Internal Medicine 04/28/23 documented as of this encounter
--- OUTSIDE RECORDS SUMMARY | 2024-07-07 22:31 | XMS_ITS ---
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 Treatments may have been administered in another system. Lifetime Dose Tracking * Chemical Lifetime Dose Automatic Entry Manual Entr y DLP (Dose Length Product) 6,088 mGy-cm 6,088 mGy-cm 0 mGy-cm CTDI (CT Dose Index) Min 182.8 mGy 182.8 mGy 0 m Gy CTDI (CT Dose Index) Max 221.11 mGy 221.11 mGy 0 m Gy
--- OUTSIDE RECORDS SUMMARY | 2024-07-07 22:31 | XMS_ITS | Encounter Summary ---
Author Organization [facility] Address [address] [place] [address] Care Team Providers Care Staffing Operations Manager Name Role Phone Jan Alfredo Jorge GARDNER Primary Care Provider Encounter Details Date Type Department Care Team (Late st Contact Info) Description 01/08/2021 Lab Requisition [facility] Pathology & Laboratory Medicine - [facility] [address] [place] [address] Son Gama MD [address] [place] [phone] Encounter for other general examination Social History [...] Acinetobacter ursingii(A) VITEK SUSCEPTIBILITY 01/10/2021 10:00 EDT [facility] Comment: Third generation cephalosporins, such [...] Piperacillin Tazobactam MICRO SUSCEPTIBILITY <=16 ug/mL: Susceptible us Son Gama MD MICROBIOLOGY - GENERAL ORDER YESSY Final Result [facility] [address] [place] [address] documented in this encounter Visit Diagnoses Diagnosis Encounter for other general examination documented in this encounter Care Teams Staffing Operations Manager Relationship Specialty Start Date End Date Alfredo Montoya DO [address] [place] [address] PCP - General Internal Medicine - Primary Care 05/23/21 documented as of this encounter
--- OUTSIDE RECORDS SUMMARY | 2024-07-07 22:31 | XMS_ITS | Encounter Summary ---
Author Organization [facility] Address [facility] [place] [address] Care Team Providers Care Dental Equipment Installer And Servicer Name Role Phone Amanda Pino Primary Care Provider [phone] Encounter Details Date Type Department Care Team (Late st Contact Info) Description 11/11/2023 10:30 AM EDT Office Visit Radiation Oncology at [address] [phone] Taya De La Vega PA [facility] DR HEMATOLOGY [place] [address] Malignant neoplasm of prostate (Primary Dx); S/P [...] Vega PA - 11/11/2023 10:30 AM EDT [facility] [place] [address] FOLLOW-UP: Patient: Narcisa Eduardo : 1945 PCP: Amanda Pino PA-C ([facility]) Urologist: Adan Navarrete Jr., MD ([facility]; last seen 09/06/23), also sees Urology at [facility] Radiation Oncologist: Que Evans MD Chief Complaint: Follow-up for 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 TRUS biopsyon 11/23/19 showed [place] 4+3 x 1 on the left, [place] 3+4 x 3 bilaterally, and [place] 3+3 x 2 bilaterally. On 12/01/19, patient saw Dr. Thomas at [facility], who discussed various treatment options. Patient was [...] a history. He follows with [facility]rology at [facility] (Dr. Wendie Garcia). He also has a history of follicular lymphoma, managed by Dr. Kennedy at [facility]. [facility] [...] Follow-Up: Next visit: 6 months (04/2024) Labs ([facility]): PSA Narcisa Eduardo had the opportunity [...] EDT Office Visit Radiation Oncology at [address] [phone] Taya De La Vega PA [facility] DR HEMATOLOGY [place] [address] 11/13/2024 2:00 PM EDT Office Visit Hematology/Oncology at [address] [phone] Kirt Kennedy MD [facility] DR HEMATOLOGY [place] [address] Alem Lazaro APRN [address] [place] [address] DR HEMATOLOGY AND ONCOLOGY [place], [place] [address] documented as of this encounter Visit Diagnoses Diagnosis Malignant neoplasm of prostate- Primary S/P radiotherapy Convalescence following radiotherapy documented in this encounter Care Teams Dental Equipment Installer And Servicer Relationship Specialty Start Date End Date Amanda Pino PA [address] [place] [address] PCP - General Internal Medicine 04/28/23 documented as of this encounter
--- OUTSIDE RECORDS SUMMARY | 2024-07-07 22:31 | XMS_ITS | Encounter Summary ---
Author Organization [facility] Address [facility] [place] [address] Care Team Providers Care Air Conditioning Installer Name Role Phone Amanda Pino Primary Care Provider [phone] Encounter Details Date Type Department Care Team [...] EDT Office Visit Radiation Oncology at [address] [phone] [address] V[address] [facility] DR HEMATOLOGY [place] [address] 11/13/2024 2:00 PM EDT Office Visit Hematology/Oncology at [address] [phone] [facility] [place] [address] Alem Lazaro APRN [address] [place] [address] DR [place] [address] documented as of this encounter Visit Diagnoses Not on filedocumented in this encounter Care Teams Air Conditioning Installer Relationship Specialty Start Date End Date Amanda Pino PA [address] [place] [address] PCP - General Internal Medicine 04/28/23 documented as of this encounter
--- OUTSIDE RECORDS SUMMARY | 2024-07-07 22:31 | XMS_ITS | Encounter Summary ---
Author Organization [facility] [place] [address] Care Team Providers Care Monitor Tech Name Role Phone Amanda Pino Primary Care Provider [phone] Encounter Details Date Type Department Care Team (Late st Contact Info) Description 11/15/2023 Telephone Urology at [facility] [place] [address] Lurdes Vila APRN [facility] [place] [address] Social History Tobacco Use Types Packs/Day Years [...] PM EDT Urine culture order refaxed to [facility] lab. documented in this encounter Plan of Treatment Upcoming Encounters Date Type Department Care Team (Late st Contact Info) Description 11/09/2024 10:30 AM EDT Office Visit Radiation Oncology at [address] [phone] Taya De La Vega PA [facility] DR HEMATOLOGY [place] [address] 11/13/2024 2:00 PM EDT Office Visit Hematology/Oncology at [address] [phone] Kirt Kennedy MD [facility] DR HEMATOLOGY [place] [address] Alem Lazaro APRN [address] [place] [address] DR HEMATOLOGY AND ONCOLOGY [place], [place] [address] documented as of this encounter Visit Diagnoses Not on filedocumented in this encounter Care Teams Monitor Tech Relationship Specialty Start Date End Date Amanda Pino PA [address] [place] [address] PCP - General Internal Medicine 04/28/23 documented as of this encounter
--- OUTSIDE RECORDS SUMMARY | 2024-07-07 22:31 | XMS_ITS | Encounter Summary ---
Author Name [facility] [place] Organization [facility] [place] Address [address] [place] [address] Care Team Providers Care Labor Expediter Name Role Phone KYRA VELASQUEZ Primary Care [...] Patient's Relationship to Policy Ervin [facility] (WNR) MEDICARE ADVANTAGE MCR(W NR) * Aug 23, 2023 [id number] ANNALISA LOYD ITE PATIENT [facility] (WNR) MEDICARE ADVANTAGE [facility] (WNR) Aug 23, 2020 [id number] [phone] ANNALISA LOYD ITE PATIENT [facility] (WNR) MEDICARE ADVANTAGE MCR(W NR) Aug 23, 2012 [id number] ANNALISA LOYD ITE PATIENT Selected Encounter This section includes the information on record at [place] for the Encounter. Date/Time Encounter Type Encounter Description Reason Pro vider Source Jul 07, 2024 12:48 PM Outpatient Encounter TELEPHONE TRIAGE IHE Encounter Template Text not used by [place] Plan of Treatment: Future Appointments (+ 6 months) and Future Tests (+/- 45 days) The Plan of Treatment section includes future care activities for the patient from all [place] [facility]. This section includes future appointments and future orders which are active, pending or scheduled. Future Appointments This section includes appointments that were scheduled to occur 6 months from the date of the Encounter, up to a maximum of 20 appointments. The data comes from all [facility]3] facilities. Appointment Date/Time Appointment Type Appointme nt Facility Name Jul 11, 2024 10:00 AM AMBULATORY - SURGERY [facility] Jul 11, 2024 10:01 AM AMBULATORY - SURGERY [facility] Jul 24, 2024 11:00 AM AMBULATORY - SURGERY [facility] Jul 27, 2024 10:00 AM AMBULATORY - NONE [place] JOELLE [facility] Aug 29, 2024 10:30 AM AMBULATORY - NONE [place]LE [facility] Aug 29, 2024 11:15 AM AMBULATORY - SURGERY [facility] Oct 23, 2024 01:00 PM AMBULATORY - MEDICINE [facility] Oct 23, 2024 01:01 PM AMBULATORY - NONE [place] JOELLE [facility] Active, Pending, and Scheduled Orders This section includes a listing of several types of active, pending, and scheduled orders, including clinic medications orders, diagnostic test orders, procedure orders and consult orders; where the start date of the order is 45 days before the date of the Encounter or 45 days after the date of theEncounter. The data comes from all [facility]. 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 [employer] Social History: Smoking Status [...] REINIER GAYLE [facility] Tobacco Use History This section [...] Feb 21, 2024 10:15 AM VA-TOBACCO USE RATER ASSOCIATE NO [facility] Feb 21, 2024 10:15 AM VA-TOBACCO USE MED NO [facility] Feb 21, 2024 10:15 AM VA-TOBACCO USE WI 30 MIN OF WAKEUP [facility] Feb 21, 2024 10:15 AM VA-TOBACCO USER EVERY DAY [facility] Jul 17, 2021 02:27 PM CURRENT SMOKER REINIER GAYLE [facility] Jul 01, 2021 08:55 PM VA-VAAES [...] Nov 18, 2017 ADVANCE DIRECTIVE REBECCARADHA Weiner [facility] Jul 08, 2017 ADVANCE [...] PORT: Reporting Lab: [facility] [CLIA# [id number]] [address] [place] [address] Accession [UID]: [id number] [[id number]] Received: Jun 07, 2024@18:38 Collection sample: URINE CLEAN CATCH Collection date: Jun 07, 2024 17:30 Site/Specimen: URINE Provider: TODD VALVERDE Test(s) ordered: CULTURE,URINE CLEAN CATCH..... completed: Jun 10, 2024 12:19 * BACTERIOLOGY FINAL REPORT => Jun 12, 2024 11:34 TECH CODE: [id number] CULTURE RESULTS: 1. ENTEROCOCCUS FAECALIS - Quantity: [...] Remark(s): Notified Paramjit Valverde, Kirsten Chong and Arycatherine Cuenca on 06/10/24 =--=--=--=--=--=--=--=--=--=--= --=--=--=--=--=--=--=--=--=--=- -=--=--=--=--=-- Performing Laboratory: Bacteriology Report Performed By: [facility] [CLIA# [id number]] [address] [place] [address] [facility] Encounter Notes: All associated encounter notes This section contains the clinical notes associated to the Encounter. Date/Time Encounter Note(s) Provider Source Jul 07, 2024 01:46 PM ADDENDUM: LOCAL TITLE: Addendum STANDARD TITLE: ADDENDUM DATE OF NOTE: JUL 07, 2024@13:46:36 ENTRY DATE: JUL 07, 2024@13:46:37 AUTHOR: DAMARIS COCHRAN COSIGNER: URGENCY: STATUS: COMPLETED TW returned Eileen's call. Eileen expresses concern for 's safety. Rangel sleeps 17-20 hours per day, and when awake stays in bed. When he attempts to ambulate his legs are weak and it is difficult for him to ambulate even with the walker. Eileen has requested a wheelchair, which would make it easier for Rangel to get around. 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 Rangel refuses to lie on his sides, so constant pressure to his buttocks. She is requesting a hospital bed with specialty mattress. Eileen reports that Rangel is Hospice eligible, however family declines Hospice care. Beaumont is down to 94 lbs and BP this AM was 94/63. Beaumont refused to go to the hospital. Eileen questions if any of his medications are weight based due to his 20 lb weight loss. TW will defer to PCP. /es/ DAMARIS COCHRAN Signed: 07/07/2024 13:57 Receipt Acknowledged By: 07/07/2024 15:55 /es/ KYRA VELASQUEZ M.D INTERNAL MEDICINE, [facility] 07/07/2024 14:41 /es/ EFRAÍN VALIENTE for OJ GIL === --- Original Document --- 07/07/24 CCC: CLINICAL TRIAGE: Patient Demographics Patient Name: GALINA CARISA LOYD JR Patient Primary Address: [address] [place] [address] Patient Primary Phone: [phone] Patient : 1945 Patient Age: 78 Current Location: [address] [place] [address] Call Back Number: [phone] Caller/Recipient Relation to Patient: Other If Other Describe Relation to Patient: RN Caller Name: Eileen Emergency Contact: DARREL LOYD Nursing Plan and Disposition Other course(s) of action Generated msg to PACT/Provider Provided guidance for worsening symptoms: *Caller/Patient* advised to call facilities [place] Clinical Contact Center or seek immediate medical attention for new or worsening symptoms Nurse Summary Nurse Summary: 's bobtail driver from [facility] calls requesting to relay the following message onto PACT: is declining, weaker since last visit, unable to stand. and have concerns regarding his appointment on Wednesday with getting out of the car safely. refuses to go to the hospital and states He's not going. RN further requests the following supplies on behalf of : a hospital bed, wheelchair, ramps, and his medications adjusted (if provider deems appropriate) from his recent loss weight of 20 lbs. in 4 months. RN requests a call back from PACT at her direct number: [phone] ext:[phone] if PACT has any questions. RN also requests a f/u call back from PACT on behalf of Beaumont. RN has no additional questions and/or requests at this time. Alerting PACT Team for review and follow up. - Clinical Contact Center Codes Clinic/Location: V1 WRJ PHONE [facility] RN IMPORTANT: This note was created by [facility] Clinical Contact Center staff. Please do not alert the staff member by adding them as a signer for future communications. Alerts are not monitored by this user. /vivian/ TRENTON BARRETT RN REGISTERED NURSE Signed: 07/07/2024 12:48 Receipt Acknowledged By: 07/07/2024 14:34 /es/ EILEEN SHANE LPN * AWAITING SIGNATURE * KYRA VELASQUEZ 07/07/2024 14:41 /es/ EFRAÍN VALIENTE for OJ Curtis LOUISE 07/07/2024 13:27 /es/ DAMARIS COCHRAN 07/07/2024 ADDENDUM STATUS: UNSIGNED You may not VIEW this UNSIGNED Addendum. DAMARIS COCHRAN [facility] Jul 07, 2024 12:48 PM RN PROGRESS NOTE: LOCAL TITLE: CCC: CLINICAL TRIAGE STANDARD TITLE: RN PROGRESS NOTE DATE OF NOTE: JUL 07, 2024@12:48:51 ENTRY DATE: JUL 07, 2024@12:48:51 AUTHOR: TRENTON BARRETT EXP COSIGNER: URGENCY: STATUS: COMPLETED CCC: CLINICAL TRIAGE Has ADDENDA Patient Demographics Patient Name: GALINA LOYD JR Patient Primary Address: [address] [place] [address] Patient Primary Phone: [phone] Patient : 1945 Patient Age: 78 Current Location: [address] [place] [address] Call Back Number: [phone] Caller/Recipient Relation to Patient: Other If Other Describe Relation to Patient: RN Caller Name: Eileen Emergency Contact: DARREL LOYD Nursing Plan and Disposition Other course(s) of action Generated msg to PACT/Provider Provided guidance for worsening symptoms: *Caller/Patient* advised to call facilities [place] Clinical Contact Center or seek immediate medical attention for new or worsening symptoms Nurse Summary Nurse Summary: Rangel's bobtail driver from [facility] calls requesting to relay the following message onto PACT: Rangel is declining, weaker since last visit, unable to stand. [place] and have concerns regarding his appointment on Wednesday with getting out of the car safely. [place] refuses to go to the hospital and states He's not going. RN further requests the following supplies on behalf of : a hospital bed, wheelchair, ramps, and his medications adjusted (if provider deems appropriate) from his recent loss weight of 20 lbs. in 4 months. RN requests a call back from PACT at her direct number: [phone] ext:[phone] if PACT has any questions. RN also requests a f/u call back from PACT on behalf of . RN has no additional questions and/or requests at this time. Alerting PACT Team for review and follow up. - Clinical Contact Center Codes Clinic/Location: V1 J PHONE [facility] RN IMPORTANT: This note was created by [facility] Clinical Contact Center staff. Please do not alert the staff member by adding them as a signer for future communications. Alerts are not monitored by this user. /es/ TRENTON BARRETT RN REGISTERED NURSE Signed: 07/07/2024 12:48 Receipt Acknowledged By: 07/07/2024 14:34 /es/ EILEEN SHANE LPN 07/07/2024 16:12 /es/ KYRA VELASQUEZ M.D INTERNAL MEDICINE, [facility] 07/07/2024 14:41 /es/ EFRAÍN VALIENTE for OJ Kirsten GIL 07/07/2024 13:27 /es/ DAMARIS COCHRAN 07/07/2024 ADDENDUM STATUS: COMPLETED TW returned Eileen's call. Eileen expresses concern for Beaumont's safety. sleeps 17-20 hours per day, and when awake stays in bed. When he attempts to ambulate his legs are weak and it is difficult for him to ambulate even with the walker. Eileen has requested a wheelchair, which would make it easier for Rangel to get around. 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 Rangel refuses to lie on his sides, so constant pressure to his buttocks. She is requesting a hospital bed with specialty mattress. Eileen reports that Rangel is Hospice eligible, however family declines Hospice care. is down to 94 lbs and BP this AM was 94/63. [place] refused to go to the hospital. Eileen questions if any of his medications are weight based due to his 20 lb weight loss. TW will defer to PCP. /es/ DAMARIS COCHRAN Signed: 07/07/2024 13:57 Receipt Acknowledged By: 07/07/2024 15:55 /es/ KYRA VELASQUEZ M.D INTERNAL MEDICINE, [facility] 07/07/2024 14:41 /es/ EFRAÍN VALIENTE for OJ Curtis LOUISE 07/07/2024 ADDENDUM STATUS: COMPLETED tc to Darrel. discussed medications. he is having difficulty swallowing second pill of atorvastatin (80 mg) - will decrease dose to 40 mg. d/c melatonin. other medications can remain the same. offered pc f/u appt when he comes for wound care eval 07/11 - is unsure he will even be able to make it to that - she will call Wednesday to see. advised ed f/u if he is profoundly weak. noted cc-palliative care notes in [facility] 06/20/24 with discussions surrounding goals of care. pt declines going to hospital or hospice at this time. /es/ KYRA VELASQUEZ M.D INTERNAL MEDICINE, [facility] Signed: 07/07/2024 15:57 TRENTON BARRETTT [facility]
--- OUTSIDE RECORDS SUMMARY | 2024-07-07 22:31 | XMS_ITS | Clinical Summary ---
Author Organization [facility] Address [address] [place] [address] Care Team Providers Care Ms Access Database Developer Name Role Phone JanAlfredo Jorge GARDNER Primary Care Provider Social History Tobacco Use Types Packs/Day Years Used Date Smoking Tobacco: Never Assessed Sex and Gender Information Value Date Recorded Sex Assigned at Not on file Legal Sex Male 16:57 EDT Gender Identity Not on file Sexual Orientation Not on file Plan of Treatment Health Maintenance Due Date Last Done Comments Hepatitis C Screen 1945 Fall Risk Screening 2010 RSV Immunization ( o r 60+ Years) (1 - 1-dose 75+ series) 2020 COVID-19 Vaccine (2023- season) 2024 Insurance [employer] [place]ICARE [place] Care Teams Ms Access Database Developer Relationship Specialty Start Date End Date Alfredo Montoya DO [address] [place] [address] PCP - General Internal Medicine - Primary Care 05/23/21
--- OUTSIDE RECORDS SUMMARY | 2024-07-07 22:32 | XMS_ITS | Encounter Summary ---
Author Organization Formerly [facility] Address [facility] [place] [address] Care Team Providers Care Press Tool Maker Name Role Phone Amanda Pino Primary Care Provider [phone] Encounter Details Date Type Department Care Team (Late st Contact Info) Description 07/27/2023 Orders Only [place] [address] Maycol Caruso MD [facility] [place] [address] Social History Tobacco Use Types Packs/Day Years [...] EDT Office Visit Radiation Oncology at [address] [phone] Taya De La Vega PA [facility] DR HEMATOLOGY [place] [address] 11/13/2024 2:00 PM EDT Office Visit Hematology/Oncology at [address] [phone] Kirt Kennedy MD [facility] [place] [address] Alem Lazaro APRN [address] [place] [address] DR HEMATOLOGY [place] ONCOLOGY [place], [place] [address] documented as of this encounter Visit Diagnoses Not on filedocumented in this encounter Care Teams Press Tool Maker Relationship Specialty Start Date End Date Amanda Pino PA [address] [place] [address] PCP - General Internal Medicine 04/28/23 documented as of this encounter
--- OUTSIDE RECORDS SUMMARY | 2024-07-07 22:32 | XMS_ITS | Encounter Summary ---
Author Organization [facility] Address [facility] [place] [address] Care Team Providers Care Account Liaison Name Role Phone Amanda Pino Primary Care Provider [phone] Encounter Details Date Type Department Care Team (Late st Contact Info) Description 10/27/2023 Telephone Urology at [facility] [place] [phone] Alex Sewell, RN Social History Tobacco Use [...] 10/27/2023 1:46 PM EST Copied from CRM #[id number]. Topic: Specialty Dept CRMs - Medication Issues [...] with the medication: Patient and spouse cannot sweet pickled fruit maker medication on scheduled date. documented in this encounter Plan of Treatment Upcoming Encounters Date Type Department Care Team (Late st Contact Info) Description 11/09/2024 10:30 AM EDT Office Visit Radiation Oncology at [address] [phone] Taya De La Vega PA [facility] DR [place]EMATOLOGY [place] [address] 11/13/2024 2:00 PM EDT Office Visit Hematology/Oncology at [address] [phone] Kirt Kennedy MD [facility] DR [place] [address] Alem Lazaro APRN [address] [place] [address] DR HEMATOLOGY AND ONCOLOGY [place], [place] [address] documented as of this encounter Visit Diagnoses Not on filedocumented in this encounter Care Teams Account Liaison Relationship Specialty Start Date End Date Amanda Pino PA [address] [place] [address] PCP - General Internal Medicine 04/28/23 documented as of this encounter
--- OUTSIDE RECORDS SUMMARY | 2024-07-07 22:32 | XMS_ITS | Encounter Summary ---
Author Organization [facility] Address [facility] [place] [address] Care Team Providers Care Pump Machine Operator Name Role Phone Amanda Pino Primary Care Provider [phone] Encounter Details Date Type Department Care Team (Late st Contact Info) Description 10/23/2023 [place] [phone] Theodore Devi MD [facility] [place] [address] Social History Tobacco Use Types Packs/Day Years [...] EDT Office Visit Radiation Oncology at [address] [phone] Taya De La Vega PA [facility] [place] [address] 11/13/2024 2:00 PM EDT Office Visit Hematology/Oncology at [address] [phone] Kirt Kennedy MD [facility] [place] [address] Alem Lazaro APRN [address] [place] [address] DR HEMATOLOGY AND ONCOLOGY [place], [place] [address] documented as of this encounter Visit Diagnoses Not on filedocumented in this encounter Care Teams Pump Machine Operator Relationship Specialty Start Date End Date Amanda Pino PA [address] [place] [address] PCP - General Internal Medicine 04/28/23 documented as of this encounter
--- OUTSIDE RECORDS SUMMARY | 2024-07-07 22:32 | XMS_ITS | Encounter Summary ---
Author Organization [facility] Address [facility] [place] [address] Care Team Providers Care Nursing Techn Name Role Phone Amanda Pino Primary Care Provider [phone] Encounter Details Date Type Department Care Team [...] EDT Office Visit Radiation Oncology at [address] [phone] Taya De La Vega PA [facility] DR HEMATOLOGY [place] [address] 11/13/2024 2:00 PM EDT Office Visit Hematology/Oncology at [address] [phone] Kirt Kennedy MD [facility] DR HEMATOLOGY [place] [address] Alem Lazaro APRN [address] [place] [address] [place] [address] documented as of this encounter Visit Diagnoses Not on filedocumented in this encounter Care Teams Nursing Techn Relationship Specialty Start Date End Date Amanda Pino PA [address] [place] [address] PCP - General Internal Medicine 04/28/23 documented as of this encounter
--- OUTSIDE RECORDS SUMMARY | 2024-07-07 22:32 | XMS_ITS | Encounter Summary ---
Author Organization [facility] Address [facility] [place] [address] Care Team Providers Care Dry Wall Installer Name Role Phone Amanda Pino Primary Care Provider [phone] Encounter Details Date Type Department Care Team (Late Contact Info) Description 10/27/2023 Orders [place] [address] Cortez Arrington MD [facility] [place] [address] Social History Tobacco Use Types Packs/Day Years [...] AM EDT Office Visit Radiation Oncology at [address] [phone] Taya De La Vega PA [facility] DR HEMATOLOGY [place] [address] 11/13/2024 2:00 PM EDT Office Visit Hematology/Oncology at [address] [phone] Kirt Kennedy MD [facility] DR HEMATOLOGY [place] [address] Alem Lazaro APRN [address] [place] [address] DR HEMATOLOGY AND ONCOLOGY [place], [place] [phone] documented as of this encounter Visit Diagnoses Not on filedocumented in this encounter Care Teams Dry Wall Installer Relationship Specialty Start Date End Date Amanda Pino PA [address] [place] [address] PCP - General Internal Medicine 04/28/23 documented as of this encounter
--- OUTSIDE RECORDS SUMMARY | 2024-07-07 22:32 | XMS_ITS | Encounter Summary ---
Author Organization [facility] [place] [address] Care Team Providers Care Polygraph Operator Name Role Phone Amanda Pino Primary Care Provider [phone] Encounter Details Date Type Department Care Team (Late Contact Info) Description 11/02/2023 Orders Only Hematology/Oncology at [address] [phone] Alem Lazaro APRN [address] [place] [address] DR [place] [address] Follicular lymphoma, unspecified grade, unspecified [...] EDT Office Visit Radiation Oncology at [address] [phone] Taya De La Vega PA [facility] DR [place] [address] 11/13/2024 2:00 PM EDT Office Visit Hematology/Oncology at [address] [phone] Kirt Kennedy MD [facility] DR [place] [address] Alem Lazaro APRN [address] [place] [address] DR HEMATOLOGY AND ONCOLOGY [place], [place] [address] documented as of this encounter Visit Diagnoses Diagnosis Follicular lymphoma, unspecified grade, unspecified body region documented in this encounter Care Teams Polygraph Operator Relationship Specialty Start Date End Date Amanda Pino PA [address] [place] [address] PCP - General Internal Medicine 04/28/23 documented as of this encounter
--- OUTSIDE RECORDS SUMMARY | 2024-07-07 22:32 | XMS_ITS | Encounter Summary ---
Author Organization Formerly [facility] [place] [address] Care Team Providers Care Dental Hygiene Administrative Assistant Name Role Phone Amanda Pino Primary Care Provider [phone] Reason for Visit * Auth/Cert (Routine) Specialty Diagnoses / Procedures Referred By Rogers t Referred To Contact Diagnoses Calculus of kidney >2.5cm right lower pole renal stone Procedures PRO PERQ NL/PL LITHOTRIPSY COMPLEX >2 CM YIELD CLERK LOCATIONS PRO PLMT NEPHROSTOMY CATH PRQ NEW [...] ORGAN (WRVU 0.59) Jonn Gustafson Jr., MD [facility] [place] [address] [facility] Referral ID Status Reason Start Date Expiration Date Visits Re quested Visits Authorized [id number] 1 1 Encounter Details Date Type Department Care Team (Latest Contact Info) Description 08/05/2023 9:41 AM EST - 08/05/2023 5:15 PM [facility] Hospital Encounter [place] [address] Jonn Gustafson Jr., MD [facility] [place] [address] Discharge Disposition: Home Social History Tobacco Use [...] De La Vega PA Radiation Oncology at [facility] Arrive at: [facility] [[email or web address] door at end of [address] [phone] 11/15/2023 2:30 PM Alem Lazaro APRN; Kirt Kennedy MD Hematology/Oncology at [facility] Arrive at: [facility] [[email or web address] door at end [address] [phone] You will have a telehealth visit in [...] Date COLONOSCOPY 2011 date is approximate. at [facility] Dr Ko PROSTATE BIOPSY [...] Operative Note Patient Name: Narcisa Eduardo : [id number] MR#: [id number] Case Date: 08/05/2023 Surgeon: Surgeon(s) and Role: [...] Abreu MD - 08/05/2023 12:40 PM EST [facility] [place] Note Patient Name: Narcisa Eduardo : [id number] MR#: [id number] Case Date: 08/05/2023 Surgeon: Surgeon(s) and Role: [...] EDT Office Visit Radiation Oncology at [address] [phone] Taya De La Vega PA [facility] [place] [address] 11/13/2024 2:00 PM EDT Office Visit Hematology/Oncology at [address] [phone] Kirt Kennedy MD [facility] DR HEMATOLOGY [place] [address] Alem Lazaro APRN [address] [place] [address] DR HEMATOLOGY AND ONCOLOGY [place], [place] [id number] documented as of this encounter Procedures Procedure Name Priority Date/Time Associated Diagnosis Comments XR FLUORO NO RAD <1HR - OR USE Routine 08/05/2023 3:56 PM EST KIDNEY STONE ANALYSIS Routine 08/05/2023 1:47 PM EST URINE CULTURE Routine 08/05/2023 12:45 PM EST Cystoscopy, Insert Ureteral Stent ([id number]) Yes 08/05/2023 12:00 PM EST >2.5cm right lower pole renal stone Cysto W Ureteroscopy &/Or Pyeloscopy, Dx ([id number]) Yes 08/05/2023 12:00 PM EST >2.5cm right lower pole renal stone Cysto/Ureteroscopy W/Lith[employer] Indwelling Stent Insertion ([id number]) Yes 08/05/2023 12:00 PM EST >2.5cm right lower pole renal stone MODIFIER HOLMIUM LASER Yes 08/05/2023 12:00 PM EST >2.5cm right lower pole renal stone TYPE AND SCREEN VALIDITY STAT 08/05/2023 10:11 AM EST ABORH RECHECK STATUS STAT 08/05/2023 10:11 AM EST TYPE AND SCREEN, SDP (FUTURE SURGERY, [facility] [place]) STAT 08/05/2023 [...] developed and its performance characteristics ?determined by [facility] in a manner consistent with CLIA ?requirements. This test has not been cleared or approved by ?the U.S. Food and Drug Administration. ?Test Performed by: ?[facility] ?[address] [place] [address] ?Show Jumping Instructor: Russel Clemons M.D. Ph.D.; CLIA# [id number] [facility] Calculus 08/05/2023 1:47 PM EST 08/06/2023 4:59 PM EST Narrative Resulting Agency Comment Spec In Lab Jonn Gustafson Jr., MD LAB SEND OUT ORDER YESSY Performing Organization Address [facility] Co de Phone Number [facility] [address] * (ABNORMAL) Urine culture Cystoscopic Urine (08/05/2023 12:45 PM EST) Urine Culture 1,000-9,000 cfu/ml Keysha parapsilosis One colony of Gram Negative organisms (A) [facility] Organism Keysha parapsilosis(A) [facility] Cystoscopic Urine 08/05/2023 12:45 PM EST 08/05/2023 2:24 PM EST Comment:Bladder Urine for Cu lture and Analysis Narrative Resulting Agency Comment Spec In Lab Jonn Gustafson Jr., MD MICROBIOLOGY - GEN ERAL ORDERABLES Performing Organization Address [facility] Co de Phone Number [facility] [address] * Type and Screen Validity (08/05/2023 10:11 AM EST) T&S only valid at [facility] Comment:This Type and Screen result is only valid at the [facility] Blood 08/05/2023 10:1 1 AM EST 08/05/2023 10:40 AM EST Narrative Resulting Agency Comment Spec In Lab Jonn Gustafson Jr., MD BLOOD BANK LAB ORD ERABLES Performing Organization Address City/[facility]/ZIP Co de Phone Number [facility] [address] * ABORH Recheck Status (08/05/2023 10:11 AM EST) ABORH Type Recheck Completed [facility] Blood 08/05/2023 10:1 1 AM EST 08/05/2023 10:40 AM EST Narrative Resulting Agency Comment Spec In Lab Jonn Gustafson Jr., MD BLOOD BANK LAB ORD ERABLES Performing Organization Address [facility] Co de Phone Number [facility] [address] * Antibody screen (08/05/2023 10:11 AM EST) Ab Screen Interp Negative [facility] Expires at 2359 on: 08/08/2023 [facility] Blood 08/05/2023 10:1 1 AM EST 08/05/2023 10:40 AM EST Narrative Resulting Agency Comment Spec In Lab Jonn Gustafson Jr., MD BLOOD BANK LAB ORD ERABLES Performing Organization Address City/[facility]/ZIP Co de Phone Number [facility] [address] * ABO/Rh Typing (08/05/2023 10:11 AM EST) ABORH Type A Pos [facility] Blood 08/05/2023 10:1 1 AM EST 08/05/2023 10:40 AM EST Narrative Resulting Agency Comment Spec In Lab Jonn Gustafson Jr., MD BLOOD BANK LAB ORD ERABLES Performing Organization Address City/[facility]/ZIP Co de Phone Number [facility] [address] documented in this encounter Visit Diagnoses Not [...] mL Mini-Bag Plus (COMPLETED) 2 g, Intravenous, PRINTED CIRCUIT BOARD DESIGNER TO O.R., 1 dose, On Brisa 08/05/23 at 1045, Administer over 30 Minutes, Day of Surgery (Day of Procedure), Indication for (Active or Suspected): Prophylaxis 1211 (New Bag - Prov ider: Sandra Chen CRNA) fluconazole (Diflucan) 200 mg in sodium chloride 0.9% 100 mL infusion 200 mg, Intravenous, PR[employer]ED [employer]ARD DESIGNER TO O.R., 1 dose, On Wed08/04/23 at 1830, Administer over 60 Minutes, Indication for (Active or Suspected): Prophylaxis, Restricted Antibiotic: Please indicate the most appropriate choice: Pre-approved indication (state the indication in comments field) 1830 (Due) fluconazole (Diflucan) 200 mg in sodium chloride 0.9% 100 mL infusion (COMPLETED) 200 mg, Intravenous, PRINTED [employer] BOARD DESIGNER TO O.R., 1 dose, On Brisa 08/05/23 [...] reactions.) documented in this encounter Care Teams Dental Hygiene Administrative Assistant Relationship Specialty Start Date End Date Amanda Pino PA [address] [place] [address] PCP - General Internal Medicine 04/28/23 documented as of this encounter
--- OUTSIDE RECORDS SUMMARY | 2024-07-07 22:32 | XMS_ITS | Encounter Summary ---
Author Organization [facility] [place] [address] Care Team Providers Care Environmental Scientists Name Role Phone Amanda Pino Primary Care Provider [phone] Encounter Details Date Type Department Care Team (Late Contact Info) Description 05/21/2023 [place] [phone] None None Social History Tobacco Use Types Packs/Day Years Used Date Smoking Tobacco: Every Day Cigarettes 1 60.9 Started: 1964 Smokeless Tobacco: Never Comments:rolls on [...] EDT Office Visit Radiation Oncology at [address] [phone] Taya De La Vega PA [facility] [address] [place] [address] 11/13/2024 2:00 PM EDT Office Visit Hematology/Oncology at [address] [phone] Kirt Kennedy MD [facility] DR [place] [address] Alem Lazaro APRN [address] [place] [address] [place] [address] documented as of this encounter Visit Diagnoses Not on filedocumented in this encounter Care Teams Environmental Scientists Relationship Specialty Start Date End Date Amanda Pino PA [address] [place] [address] PCP - General Internal Medicine 04/28/23 documented as of this encounter
--- OUTSIDE RECORDS SUMMARY | 2024-07-07 22:32 | XMS_ITS | Encounter Summary ---
Author Organization [facility] Address [facility] [place] [address] Care Team Providers Care Typewriter Assembly And Parts Inspector Name Role Phone Amanda Pino Primary Care Provider [phone] Encounter Details Date Type Department Care Team [...] EDT Office Visit Radiation Oncology at [address] [phone] Taya De La Vega PA [facility] DR [place] [address] 11/13/2024 2:00 PM EDT Office Visit Hematology/Oncology at [address] [phone] Kirt Kennedy MD [facility] DR [place] [address] Alem Lazaro APRN [address] [place] [address] [place] [address] documented as of this encounter Visit Diagnoses Not on filedocumented in this encounter Care Teams Typewriter Assembly And Parts Inspector Relationship Specialty Start Date End Date Amanda Pino PA [address] [place] [address] PCP - General Internal Medicine 04/28/23 documented as of this encounter
--- OUTSIDE RECORDS SUMMARY | 2024-07-07 22:32 | XMS_ITS | Encounter Summary ---
Author Organization [facility] [place] [address] Care Team Providers Care Intervention Nurse Name Role Phone Amanda Pino Primary Care Provider Reason for Visit * Auth/Cert (Routine) Specialty Diagnoses / Procedures Referred By Contaryan t Referred To Contact Diagnoses RIGHT STONE Procedures PRO PERQ NL/PL LITHOTRIPSY COMPLEX >2 CM BARREL LATHE OPERATOR INSIDE LOCATIONS PRO PLMT NEPHROSTOMY CATH PRQ NEW [...] MODIFIER HOLMIUM LASER Jonn Navarrete Jr., MD [facility] [place] [address] [facility] Referral ID Status Reason Start Date Expiration Date Visits Re quested Visits Authorized [id number] 1 1 Encounter Details Date Type Department Care Team (Latest Contact Info) Description 10/21/2023 9:23 AM EST - 10/22/2023 6:19 PM EST Hospital Encounter Short Stay Unit at [facility] [place] [address] Jonn Navarrete Jr., MD [facility] [address] Nephrolithiasis Discharge Disposition: Home Social History Tobacco [...] Narcisa Eduardo Patient Age: 78 y.o. Language: Slovenian Race: White Ethnicity: Not nor Admit date: [...] a 78 y.o. 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 No recent changes to health status. Left URS in 08/14 showed innumerable small stones and an impassable right ureter. CT showed persistent left stones. Prior Cx with rivera - Fluc On keflex for GNRs - Ancef Hospital Course: Patient was admitted to [facility] via the same day surgery program and [...] a walker. [place] and it's thought stressors can trigger seizures. [...] who have questions please contact the health healthcare technician that requested your imaging first. Electronically signed by: Damian Duggan MD, [facility] ([phone]), at 10/22/2023 7:24 AM Pending Studies and Lab Data: The patient [...] may be used if needed and are oium-oos-lonrfgu medications available at most local pharmacies. Prunes [...] will call you to schedule. Please call [phone] (clinic number for appointments) to confirm date [...] De La Vega PA Radiation Oncology at [facility] Arrive at: [facility] door at end of hallway [phone] 11/15/2023 2:30 PM Alem Lazaro APRN; Kirt Kennedy MD Hematology/Oncology at [facility] Arrive at: [facility] door at end of hallway [phone] Follow-Up: Future Appointments Date Time Provider Department [place] 11/11/2023 10:30 AM Taya De La Vega PA [facility] 11/15/2023 2:30 PM [address]irt Kennedy MD [address] Hem Off [facility] Primary Care Provider: MARISOL Munoz [phone] Unexpected Findings: Follow-up with neurologist immediately or [...] was managed by the Urology Team at [facility]. If you have any questions or concerns, please feel free to contact us. Provider Contact Information: Urology Clinic: [facility] (after business hours): Total time spent on discharge including hwhn-qj-juuk time, care coordination, and discharge summarypreparation: 80 [...] may be used if needed and are fpek-qzi-ntxyuyv medications available at most local pharmacies. Prunes [...] will call you to schedule. Please call [phone] (clinic number for appointments) to confirm date [...] Gant RN - 10/22/2023 6:16 PM EST [facility] Short Stay Unit Discharge Note All relevant [...] Note Patient: Narcisa Eduardo : 1945 Room: [address] Admit date: 10/21/2023 Attending: Jonn Navarrete [...] a walker. [place] and it's thought stressors can trigger seizures. [...] a 78 y.o. 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 at [facility] Dr Ko PRO CYSTO W URETEROSCOPY &/OR PYELOSCOPY, DX Right 08/05/2023 CYSTOURETEROSCOPY, DIAGNOSTIC (WRVU 5.75) performed by Jonn Navarrete Jr., MD at [facility] MAIN OR PRO CYSTO/URETEROSCOPY W/LITHOTRIPSY INC INDWELLING STENT INSERTION Left 08/05/2023 CYSTOURETEROSCOPY,DIAGNOSTIC,W/ LITHOTRIPSY INC. INSERTION OF INDWELLING URETERAL STENT (WRVU 8) performed by Jonn Navarrete Jr., MD at [facility] MAIN OR PRO CYSTOSCOPY, INSERT URETERAL STENT Right 08/05/2023 CYSTO, STENT PLACEMENT (WRVU 2.82) performed by Jonn Navarrete Jr., MD at [facility] MAIN OR PROSTATE BIOPSY 11/23/2019 ALLERGIES Allergies [...] Brief Operative Note Patient Name: Narcisa SOARES: [id number] MR#: [id number] Case Date: 10/21/2023 Surgeon: Surgeon(s) and Role: [...] Jr., MD - 10/21/2023 1:50 PM EST [facility] Operative Note Patient Name: Narcisa Eduardo : [id number] MR#: [id number] Case Date: 10/21/2023 Surgeon: Surgeon(s) and Role: [...] CYSTOURETEROSCOPY, DIAGNOSTIC (WRVU 5.75) (Right) NEPHROSTOMY CATHETER, [facility] DX NEPHROSTOGRAM/URETEROGRAM, IMG GUIDANCE (WRVU 4) [...] a 78 y.o. 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 Stentwas replaced with a new 8 Yemeni 26 cm stent in a retrograde fashion. [...] collecting system on fluoroscopic evaluation. An 8 Yemeni dilator was used to dilate the tract [...] superstiff wire inthe same fashion. A 21/22 Yemeni mini PCNL obturator was advanced over the wire under fluoroscopy to the level of thecalyx. Over the obturator the 22 Yemeni mini PCNL sheath was advanced and positioned [...] advanced into the renal pelvis. A 6 Yemeni variable length double-J ureteral stent was then passed over the wire and down the right ureter in an antegrade fashion under fluoroscopic guidance. Proximal curl formed in the renal pelvis and distal curl within the bladder. The nephroscope was then removed. Surgiflo was applied to the tract. A 5 Yemeni Pollick catheter was passed over the safety wire and the wire was withdrawn. Skin edges were reapproximated with 4-0 Monocryl. The Ella catheter was then secured to the skin using two 0-Silk sutures. The guidewire was then removed from the Ella and [place] catheter combination. The other remaining superstiffsafety wire [...] EDT Office Visit Radiation Oncology at [address] [phone] [address] De La V[address] PA [facility] DR HEMATOLOGY [place] [address] 11/13/2024 2:00 PM EDT Office Visit Hematology/Oncology at [address] [phone] [facility] DR HEMATOLOGY [place] [address] Alem Lazaro APRN [address] [place] [address] DR HEMATOLOGY AND ONCOLOGY [place], [place] [id number] documented as of this encounter Procedures Procedure [...] 2:10 PM EST Cystoscopy, Remv Calculus, Simple (53792) 10/21/2023 12:35 PM EST RIGHT STONE Ultrasonic Guidance, Intraoperative ([id number]) 10/21/2023 12:35 PM EST RIGHT STONE Plmt Nephrostomy Cath Prq New Access Rs&I ([id number]) 10/21/2023 12:35 PM EST RIGHT STONE Cysto W Ureteroscopy &/Or Pyeloscopy, Dx ([id number]) 10/21/2023 12:35 PM EST RIGHT STONE Cysto/Uretero/Pyeloscop y, Calculus Tx ([id number]) 10/21/2023 12:35 PM EST RIGHT STONE Perq Nl/Pl Lithotripsy Complex >2 Cm Insurance Claims Adjuster Locations ([id number]) 10/21/2023 12:35 PM EST RIGHT STONE URINE CULTURE Routine 10/21/2023 9:48 AM EST ABORH RECHECK STATUS Routine 10/21/2023 9:45 AM EST TYPE AND SCREEN, SDP (FUTURE SURGERY, [facility] SAME DAY PROGRAM ONLY) STAT 10/21/2023 9:45 [...] who have questions please contact the health healthcare technician that requested your imaging first. ? Narrative [...] patients who have questions please contactthe health healthcare technician that requested your imaging first. Electronically signed by: Damian Duggan MD, [facility]([phone]), at 10/22/2023 7:24 AM Jonn Navarrete Jr., MD IMG CT ORDERABLES * (ABNORMAL) Differential, Automated (10/22/2023 12:50 AM EST) Neutrophil % 94.1 % [facility] Neutrophil Absolute 15.28(H) 1.70 - 6.10 x10(3)/mc L [facility] Lymph % 3.3 % [facility] Lymphocytes Abs 0.5(L) 0.9 - 3.2 x10(3)/mc L [facility] Monocyte % 1.9 % [facility] Monocyte Abs 0.3 0.3 - 0.9 x10(3)/mc L [facility] Eos % 0.1 % [facility] Eosinophils Abs 0.0 0.0 - 0.4 x10(3)/ L [facility] Basophil % 0.1 % [facility] Baso Absolute 0.0 0.0 - 0.1 x10(3)/mc L [facility] Immature Gran % 0.50 % [facility] Comment: Immature granulocytes(IG's)percentage and absolute count will include metamyelocytes, myelocytes, and promyelocytes. Blood smears from CBCs yielding IG's will be scanned manually for concordance. If this scan disagrees with the automated IG or if promyelocytes are noted, a manual differential will be performed. Immature Gran Absolute 0.08(H) 0.00 - 0.04 x10(3)/mc L [facility] Blood 10/22/2023 12:5 0 AM EST 10/22/2023 1:02 AM EST Narrative Resulting Agency Comment Spec In Lab Maycol Caruso MD HEMATOLOGY ORDERABLE S [facility] [place] [address] * (ABNORMAL) Hemogram (10/22/2023 12:50 AM EST) White Blood Cell 16.2(H) 4.0 - 9.5 x10(3)/mc L [facility] Red Blood Cell 4.02(L) 4.58 - 5.54 x10(6)/ L [facility] Hemoglobin 12.3(L) 13.7 - 16.5 g/dL [facility] Hematocrit 37.7(L) 40.5 - 48.5 % [facility] Mean Cell Volume 93.8(H) 82.9 - 93.1 fL [facility] Mean Cell Hemoglobin 30.6 27.5 - 32.1 pg [facility] Mean Cell Hemoglobin Concentration 32.6 32.0 - 35.7 g/dL [facility] Platelet 276 145 - 357 x10(3)/mc L [facility] RDW Standard Deviation 46.9(H) 36.0 - 45.0 fL [facility] RDW coefficient of variation 13.6 11.4 - 13.8 % [facility] Mean Platelet Volume 8.8 7.6 - 12.9 fL [facility] NRBC% auto 0.0 % [facility] NRBC Absolute 0.000 0.000 - 0.000 x10(3)/ L [facility] Blood 10/22/2023 12:5 0 AM EST 10/22/2023 1:02 AM EST Narrative Resulting Agency Comment Spec In Lab Maycol Caruso MD HEMATOLOGY ORDERABLE S Performing Organization Address City/State/[facility] Co de Phone Number [facility] [place] [address] * (ABNORMAL) Basic Metabolic Panel (non-fasting) (10/22/2023 12:50 AM EST) Glucose 211(H) 65 - 199 mg/dL [facility] Comment:Diabetes: >=200 mg/d L plus symptoms Blood Urea Nitrogen 14 10 - 20 mg/dL [facility] Creatinine 0.74(L) 0.80 - 1.50 mg/dL [facility] Sodium 138 135 - 145 mmol/L [facility] Potassium 4.5 3.5 - 5.0 mmol/L [facility] Comment: Please note: ??Patients with WBC >100,000 may have falsely elevated Potassium levels. ??For accurate Potassium quantification in these patients send serum separator tube (gold top) for subsequent determinations. ??Contact the Clinical Chemistry Laboratory if there are any questions. Chloride 103 98 - 107 mmol/L [facility] Carbon Dioxide 26 22 - 31 mmol/L [facility] Anion Gap 9 5 - 15 mmol/L [facility] Calcium 9.3 8.5 - 10.5 mg/dL [facility] Est Glomerular Filtration Rate 93 >=60 mL/min/1. 73 m?? [facility] Comment: This patient's estimated GFR [...] City/[facility]/ZIP Co de Phone Number [facility] [place] [address] * Magnesium (10/22/2023 12:50 AM EST) Magnesium 0.82 0.69 - 1.07 mmol/L [facility] Blood 10/22/2023 12:5 0 AM EST 10/22/2023 1:02 AM EST Narrative Resulting Agency Comment Spec In Lab Jonn Navarrete Jr., MD CHEMISTRY ORDERABL ES Performing Organization Address City/[facility]/ZIP Co de Phone Number [facility] [place] [address] * Phosphorus (10/22/2023 12:50 AM EST) Phosphorus 3.7 2.5 - 4.5 mg/dL [facility] Blood 10/22/2023 12:5 0 AM EST 10/22/2023 1:02 AM EST Narrative Resulting Agency Comment Spec In Lab Jonn Navarrete Jr., MD CHEMISTRY ORDERABL ES [facility] [place] [address] * XR Fluoro No Rad <1Hr - [...] its performance characteristics ?determined by [facility] in a manner consistent with CLIA ?requirements. This test has not been cleared or approved by ?the U.S. Food and Drug Administration. ?Test Performed by: ?[facility] ?[address] [place] [address] ?School Secretary: Russel Clemons M.D. Ph.D.; CLIA# [id number] [facility] Calculus 10/21/2023 4:51 PM EST 10/22/2023 1:26 PM EST Narrative Resulting Agency Comment Spec In Lab Jonn Navarrete Jr., MD LAB SEND OUT ORDER YESSY [facility] [place] [address] * Kidney Stone Analysis (10/21/2023 4:47 PM [...] its performance characteristics ?determined by [facility] in a manner consistent with CLIA ?requirements. This test has not been cleared or approved by ?the U.S. Food and Drug Administration. ?Test Performed by: ?[facility] ?[address] [place] [address] ?School Secretary: Russel Clemons M.D. Ph.D.; CLIA# [id number] [facility] Calculus 10/21/2023 4:47 PM EST 10/22/2023 1:26 PM EST Narrative Resulting Agency Comment Spec In Lab Jonn Navarrete Jr., MD LAB SEND OUT ORDER YESSY [facility] [place] [address] * Anaerobic Culture (10/21/2023 3:25 PM EST) Anaerobic Culture No anaerobic organisms isolated [facility] Kidney 10/21/2023 3:25 PM EST 10/21/2023 4:44 PM EST Comment:Right Kidney Stone f or culture Narrative Resulting Agency Comment Spec In Lab Jonn Navarrete Jr., MD MICROBIOLOGY - GEN ERAL ORDERABLES Performing Organization Address [facility] Co de Phone Number [facility] [place] [address] * (ABNORMAL) Tissue culture (10/21/2023 3:25 PM EST) Tissue Culture Many Rivera parapsilosis(A) [facility] Gram Stain No Neutrophils seen. No microorganisms seen. (A) [facility] Organism Rivera parapsilosis(A) [facility] Kidney 10/21/2023 3:25 PM EST 10/21/2023 4:44 PM EST Comment:Right Kidney Stone f or culture Narrative Resulting Agency Comment Spec In Lab Jonn Navarrete Jr., MD MICROBIOLOGY - GEN ERAL ORDERABLES Performing Organization Address [facility] Co de Phone Number [facility] [place] [address] * (ABNORMAL) Urine culture Cystoscopic Urine (10/21/2023 2:10 PM EST) Urine Culture 1,000-9,000 cfu/ml Rivera parapsilosi s(A) [facility] Organism Rivera parapsilosi s(A) [facility] Cystoscopic Urine 10/21/2023 2:10 PM EST 10/21/2023 3:02 PM EST Comment:Bladder Urine for Cu lture Narrative Resulting Agency Comment Spec In Lab Jonn Navarrete Jr., MD MICROBIOLOGY - GEN ERAL ORDERABLES Performing Organization Address [facility] Co de Phone Number [facility] [place] [address] * (ABNORMAL) Urine culture (10/21/2023 9:48 AM EST) Urine Culture 50,000-99,000 cfu/ml mixed mucosal stefania 50,000-99,000 cfu/ml Gram Negative organisms Note: Culture shows multiple bacterial species suggesting mucosal contamination. (A) [facility] Urine 10/21/2023 9:48 AM EST 10/21/2023 10:35 AM EST Narrative Resulting Agency Comment Spec In Lab Jonn Navarrete Jr., MD MICROBIOLOGY - GEN ERAL ORDERABLES Performing Organization Address [facility] Co de Phone Number [facility] [place] [address] * ABORH Recheck Status (10/21/2023 9:45 AM EST) ABOR[facility] Type Recheck Completed [facility] Blood 10/21/2023 9:45 AM EST 10/21/2023 9:56 AM EST Narrative Resulting Agency Comment Spec In Lab Jonn Navarrete Jr., MD BLOOD BANK LAB ORD ERABLES Performing Organization Address [facility] de Phone Number [facility] [place] [address] * Type and Screen Future Surgery, [facility] SAME DAY PROGRAM ONLY) (10/21/2023 9:45 AM EST) ABORH Type A POSITIVE [facility] Patient BB History Found [facility] Expires at 2359 on: 10-24-2023 [facility] Ab Screen Interp Negative [facility] Blood 10/21/2023 9:45 AM EST 10/21/2023 9:45 AM EST Narrative Resulting Agency Comment Spec In Lab Jonn Navarrete Jr., MD BLOOD BANK LAB ORD ERABLES Performing Organization Address [facility] Co de Phone Number [facility] [place] [address] * SCAN DOC: IMPLANTABLE DEVICES (10/21/2023 12:00 [...] mL Mini-Bag Plus (COMPLETED) 2 g, Intravenous, PRODUCT LINE MANAGER TO O.R., 1 dose, On Brisa 10/21/23 [...] 200 mL infusion (COMPLETED) 400 mg, Intravenous, PRODUCT LINE MANAGER TO O.R., 1 dose, On Brisa 10/21/23 [...] Patient/family refused - Comment: [facility], pt declined)1349 (Given - Provider: Tanvi Gant [...] Routine documented in this encounter Care Teams Intervention Nurse Relationship Specialty Start Date End Date Amanda Pino PA [address] [place] [address] PCP - General Internal Medicine 04/28/23 documented as of this encounter
--- OUTSIDE RECORDS SUMMARY | 2024-07-07 22:32 | XMS_ITS | Encounter Summary ---
Author Organization [facility] [place] [address] Care Team Providers Care Furnace Repairer Name Role Phone Amanda Pino Primary Care Provider Encounter Details Date Type Department Care Team (Late st Contact Info) Description 10/15/2023 Telephone Urology at [facility] [place] [place] [phone] Perla Vail, RN Social History Tobacco Use [...] he will go to local lab in [facility]. documented in this encounter Miscellaneous Notes * Telephone Encounter - Perla Vail RN - 10/15/2023 1:33 PM EST Copied from [facility] #[id number]. Topic: Specialty Dept CRMs - Triage >> [...] EDT Office Visit Radiation Oncology at [address] [phone] Taya De La Vega PA [facility] [place] [address] 11/13/2024 2:00 PM EDT Office Visit Hematology/Oncology at [address] [phone] Kirt Kennedy MD [facility] HEMATOLOGY [place] [address] Alem Lazaro APRN [address] [place] [address] DR HEMATOLOGY [place] [address] documented as of this encounter Visit Diagnoses Diagnosis Nephrolithiasis Calculus of kidney documented in this encounter Care Teams Furnace Repairer Relationship Specialty Start Date End Date Amanda Pino PA [address] [place] [address] PCP - General Internal Medicine 04/28/23 documented as of this encounter
--- OUTSIDE RECORDS SUMMARY | 2024-07-07 22:32 | XMS_ITS | Encounter Summary ---
Author Organization [facility] Address [facility] [place] [address] Care Team Providers Care Assistant Portfolio Manager Name Role Phone Amanda Pino Primary Care Provider [phone] Encounter Details Date Type Department Care Team [...] EDT Office Visit Radiation Oncology at [address] [phone] Taya De La Vega PA [facility] DR [place] [address] 11/13/2024 2:00 PM EDT Office Visit Hematology/Oncology at [address] [phone] Kirt Kennedy MD [facility] DR [place] [address] Alem Lazaro APRN [address] [place] [address] DR HEMATOLOGY [place] [address] documented as of this encounter Visit Diagnoses Not on filedocumented in this encounter Care Teams Assistant Portfolio Manager Relationship Specialty Start Date End Date Amanda Pino PA [address] [place] [address] PCP - General Internal Medicine 04/28/23 documented as of this encounter
--- OUTSIDE RECORDS SUMMARY | 2024-07-07 22:32 | XMS_ITS | Encounter Summary ---
Author Organization Formerly [facility], [facility] Address [facility] [place] [address] Care Team Providers Care Cost Estimating Manager Name Role Phone Amanda Pino Primary Care Provider [phone] Reason for Referral * Diagnostic Test (Routine) - Closed Specialty Diagnoses / Procedures Referred By Contac t Referred To Contact Radiology Diagnoses Nephrolithiasis Procedures CT Abdomen & Pelvis wo Contrast Adan Navarrete Jr., MD [facility] [place] [address] [facility] [place] [address] Referral ID Status Reason Start Date Expiration Date V isits Requested Visits Authorized [id number] Closed Specialty Service Requested 09/06/2023 03/06/2025 1 1 Reason for Visit * Reason Comments Nephrolithiasis Encounter Details Date Type Department Care Team (Late st Contact Info) Description 09/06/2023 10:30 AM EST Office [place] [address] Adan Navarrete Jr., MD [facility] [place] [address] Nephrolithiasis Social History Tobacco Use [...] history notable for seizure disorder, hypertension, depression, [place] 4+3 prostate cancer status post radiation persistent [...] he again attempted bilateral ureteroscopy at the NH, but were unable to access either ureteral orifice ease uretereroscopically and placed bilateral 8 Icelandic stents. By report he was scheduled to undergo left ureteroscopy laser lithotripsy and right stent removal on 04/29/2023. These notes have not been forwarded, but he states he was told he would require PCNL to remove the stones andthat it cannot be performed at the [facility]. Despite multiple requests from the [facility], CT images were not forwarded to us [...] CVA tenderness to percussion bilaterally Imaging Studies: NH has not yet forwarded the most recent [...] note, an additional lateral calcification identified on ammonia refrigeration worker fluoroscopy appears to be within the liver [...] EDT Office Visit Radiation Oncology at [address] [phone] Taya De La Vega PA [facility] [address] [place] [address] 11/13/2024 2:00 PM EDT Office Visit Hematology/Oncology at [address] [phone] Kirt Kennedy MD [facility] DR [place] [address] Alem Lazaro APRN [address] [place] [address] DR HEMATOLOGY AND ONCOLOGY [place], [place] [phone] documented as of this encounter Procedures Procedure Name Priority Date/Time Associated Diagnosis Comments URINE CULTURE Routine 09/06/2023 1:20 PM EST Nephrolithiasis documented in this encounter Results * (ABNORMAL) Urine culture Clean Catch Urine (09/06/2023 1:20 PM EST) Urine Culture 50,000-99,000 cfu/ml mixed mucosal stefania 10,000-49,000 cfu/ml Gram Negative organisms Note: Culture shows multiple bacterial species suggesting mucosal contamination. (A) [facility] Clean Catch Urine 09/06/2023 1:20 PM EST 09/06/2023 3:16 PM EST Narrative Resulting Agency Comment Spec In Lab Adan Navarrete Jr., MD MICROBIOLOGY - GEN ERAL ORDERABLES [facility] [place] [place] [address] * (ABNORMAL) CT Abdomen & Pelvis wo [...] who have questions please contact the health nurse care manager that requested your imaging first. ? Narrative 09/06/2023 2:53 PM EST EXAMINATION: CT [...] kidney documented in this encounter Care Teams Cost Estimating Manager Relationship Specialty Start Date End Date Amanda Pino PA [address] [place] [address] PCP - General Internal Medicine 04/28/23 documented as of this encounter
--- OUTSIDE RECORDS SUMMARY | 2024-07-07 22:32 | XMS_ITS | Encounter Summary ---
Author Organization [facility] [place] [address] Care Team Providers Care Umbrella Tipper Name Role Phone Amanda Pino Primary Care Provider [phone] Reason for Visit * Auth/Cert (Routine) Specialty Diagnoses / Procedures Referred By Rogers t Referred To Contact Diagnoses Calculus of kidney >2.5cm right lower pole renal stone Procedures PRO PERQ NL/PL LITHOTRIPSY COMPLEX >2 CM LAMINATING MACHINE OPERATOR HELPER LOCATIONS PRO PLMT NEPHROSTOMY CATH PRQ NEW [...] ORGAN (WRVU 0.59) Adan Navarrete Jr., MD [facility] [place] [address] [facility] Referral ID Status Reason Start Date Expiration Date Visits Re quested Visits Authorized [id number] 1 1 Encounter Details Date Type Department Care Team (Late st Contact Info) Description 08/05/2023 11:58 AM EST Anesthesia [place] [phone] Terence Ferreira MD [facility] [place] [address] Sandra Chen CRNA [facility] [place] [address] Anesthesia Record Procedure Summary Procedure Name Responsible [...] by Ashwini Chaudhary RN PIV 08/05/23; 1043; wbnb-vzq-fhavvt catheter system; 20 gauge; cephalic vein (lateral [...] Procedure Summary Date: 08/05/23 Room / Location: [address] MAIN OR Anesthesia Start: 1158 Anesthesia [...] All Anesthesia Providers: Anesthesiologist: Terence Ferreira MD ADJUSTER: Sandra Chen CRNA Vitals Value Taken Time BP 125/76 08/05/23 1545 Temp 36.7 ??C (98.1 ??F) 08/05/23 1541 Pulse Resp 16 08/05/23 1545 SpO2 100 % 08/05/23 1600 Pain Level 0 08/05/23 1545 Vitals shown include unfiled device data. Patient [facility] Level of Consciousness: Conscious but Sleepy Pain [...] 2011 [address] [facility] Dr Ko ??? PROSTATE BIOPSY [...] risks discussed with patient. Plan discussed with ADJUSTER and attending. Anesthesia Screening documented in this encounter Plan of Treatment Upcoming Encounters Date Type Department Care Team (Late st Contact Info) Description 11/09/2024 10:30 AM EDT Office Visit Radiation Oncology at [address] [phone] Taya De La Vega PA [facility] DR [place] [address] 11/13/2024 2:00 PM EDT Office Visit Hematology/Oncology at [address] [phone] Kirt Kennedy MD [facility] DR [place] [address] Alem Lazaro, [address] [place] [address] documented as of this encounter Visit Diagnoses Not on filedocumented in this encounter Administered Medications Inactive Administered Medications - up to 3 most recent administrations Medication Order MAR Action Action Date Dose Rate Site ceFAZolin (Ancef) 2 g vial attach to sodium chloride 0.9% 100 mL Mini-Bag Plus 2 g, Intravenous, LEGAL RESEARCHER TO O.R., 1 dose, On Brisa 08/05/23 [...] 0.9% 100 mL infusion 200 mg, Intravenous, LEGAL RESEARCHER TO O.R., 1 dose, On Brisa 08/05/23 [...] mg documented in this encounter Care Teams Umbrella Tipper Relationship Specialty Start Date End Date Amanda Pino PA [address] [place] [address] PCP - General Internal Medicine 04/28/23 documented as of this encounter
--- OUTSIDE RECORDS SUMMARY | 2024-07-07 22:32 | XMS_ITS | Encounter Summary ---
Author Organization Formerly [facility] [place] [address] Care Team Providers Care Mergers And Acquisitions Attorney Name Role Phone Amanda Pino Primary Care Provider [phone] Encounter Details Date Type Department Care Team (Late st Contact Info) Description 10/18/2023 Telephone [place] [phone] Perla Vail, RN Social History Tobacco Use [...] culture results from 10/15/23. Call placed to [facility], urine culture results requested to be faxed to [phone]. documented in this encounter Miscellaneous Notes * Telephone Encounter - Perla Vail RN - 10/18/2023 10:12 AM EST Copied from [facility] #[id number]. Topic: Specialty Dept CRMs - Generic Call >> Oct 18, 2023 8:22 AM Charlotte Muñiz wrote: Specialist: Landon Relationship (if other than patient-full name): Kinue, spouse Reason for Call: Spouse Kinue is calling back to see if results are in from urine test, test was done at [facility] on 10/15/2023 documented in this encounter Plan of Treatment Upcoming Encounters Date Type Department Care Team (Late st Contact Info) Description 11/09/2024 10:30 AM EDT Office Visit Radiation Oncology at [address] [phone] Taya De La Vega PA [facility] DR HEMATOLOGY [place] [address] 11/13/2024 2:00 PM EDT Office Visit Hematology/Oncology at [address] [phone] Kirt Kennedy MD [facility] DR HEMATOLOGY [place] [address] Alem Lazaro APRN [address] [place] [address] DR HEMATOLOGY AND ONCOLOGY [place], [place] [phone] documented as of this encounter Visit Diagnoses Not on filedocumented in this encounter Care Teams Mergers And Acquisitions Attorney Relationship Specialty Start Date End Date Amanda Pino PA [address] [place] [address] PCP - General Internal Medicine 04/28/23 documented as of this encounter
--- OUTSIDE RECORDS SUMMARY | 2024-07-07 22:32 | XMS_ITS | Encounter Summary ---
Author Organization [facility] Address [facility] [place] [address] Care Team Providers Care Heel Gummer Name Role Phone Amanda Pino Primary Care Provider [phone] Encounter Details Date Type Department Care Team (Late st Contact Info) Description 06/17/2023 11:15 AM EDT Office Visit Radiation Oncology at [address] [phone] Taya De La Vega PA [facility] DR [place] [address] Malignant neoplasm of prostate (Primary Dx); S/P [...] Vega PA - 06/17/2023 11:15 AM EDT [facility] [place] [address] FOLLOW-UP: Patient: Narcisa Eduardo : 1945 PCP: [facility] Primary Care Urologist: Adan Navarrete Jr., MD ([facility]; last seen 05/24/23), also sees Urology at [facility] Radiation Oncologist: Que Evans MD Chief [...] nodules, per patient. TRUS biopsyon 11/23/19 showed [facility] 4+3 x 1 on the left, [facility] 3+4 x 3 bilaterally, and [facility] 3+3 x 2 bilaterally. On 12/01/19, patient saw Dr. Thomas at the [facility], who discussed various treatment options. Patient [...] a history. He follows with Neurology at [facility] (Dr. Wendie Garcia). He also has a history of follicular lymphoma, managed by Dr. Kennedy at [facility] [...] 6 months from 04/2023 labs (10/2023) Labs ([facility]): TIANA Eduardo had the opportunity to ask [...] EDT Office Visit Radiation Oncology at [address] [phone] Taya De La Vega PA [facility] DR [place] [address] 11/13/2024 2:00 PM EDT Office Visit Hematology/Oncology at [address] [phone] Kirt Kennedy MD [facility] DR [place] [address] Alem Lazaro APRN [address] [place] [address] DR HEMATOLOGY AND ONCOLOGY [place], [place] [phone] documented as of this encounter Procedures Procedure [...] radiotherapy documented in this encounter Care Teams Heel Gummer Relationship Specialty Start Date End Date Amanda Pino PA [address] [place] [address] PCP - General Internal Medicine 04/28/23 documented as of this encounter
--- OUTSIDE RECORDS SUMMARY | 2024-07-07 22:32 | XMS_ITS | Encounter Summary ---
Author Organization [facility] [place] [address] Care Team Providers Care Cement Based Materials Pump Tender Name Role Phone Amanda Pino Primary Care Provider [phone] Reason for Visit * Auth/Cert (Routine) Specialty Diagnoses / Procedures Referred By Rogers t Referred To Contact Diagnoses Calculus of kidney >2.5cm right lower pole renal stone Procedures PRO PERQ NL/PL LITHOTRIPSY COMPLEX >2 CM JOINTER MACHINE LOCATIONS PRO PLMT NEPHROSTOMY CATH PRQ NEW [...] ORGAN (WRVU 0.59) Jonn Gustafson Jr., MD [facility] [place] [address] [facility] Referral ID Status Reason Start Date Expiration Date Visits Re quested Visits Authorized [id number] 1 1 Encounter Details Date Type Department Care Team (Late st Contact Info) Description 08/05/2023 11:17 AM EST - 08/05/2023 4:02 PM EST Surgery Main Operating [place] [address] Jonn Gustafson Jr., MD [facility] [place] [address] CYSTOURETEROSCOPY,DIAG NOSTIC,W/ LITHOTRIPSY INC. INSERTION OF INDWELLING [...] La Vega PA Radiation Oncology at [facility] Arrive at: [facility] door at end of hallway [phone] 11/15/2023 2:30 PM Alem Lazaro APRN; Kirt Kennedy MD Hematology/Oncology at [facility] Arrive at: [facility] door at end of hallway [phone] You will have a telehealth visit in [...] Date COLONOSCOPY 2011 date is approximate. at [facility] Dr Ko PROSTATE BIOPSY 11/23/2019 [...] Operative Note Patient Name: Narcisa Eduardo : [id number] MR#: [id number] Case Date: 08/05/2023 Surgeon: Surgeon(s) and Role: [...] Abreu MD - 08/05/2023 12:40 PM EST [facility] Operative Note Patient Name: Narcisa Eduardo : [id number] MR#: [id number] Case Date: 08/05/2023 Surgeon: Surgeon(s) and Role: [...] EDT Office Visit Radiation Oncology at [address] [phone] Taya De La Vega PA [facility] DR [place] [address] 11/13/2024 2:00 PM EDT Office Visit Hematology/Oncology at [address] [place] [phone] Kirt Kennedy MD [facility] DR [place] [address] Alem Lazaro, CHOLO [address] [place] [address] DR HEMATOLOGY AND ONCOLOGY [place], [place] [phone] documented as of this encounter Procedures Procedure Name Priority Date/Time Associated Diagnosis Comments XR FLUORO NO RAD <1HR - OR USE Routine 08/05/2023 3:56 PM EST KIDNEY STONE ANALYSIS Routine 08/05/2023 1:47 PM EST URINE CULTURE Routine 08/05/2023 12:45 PM EST Cystoscopy, Insert Ureteral Stent (99993) Yes 08/05/2023 12:00 PM EST >2.5cm right lower pole renal stone Cysto W Ureteroscopy &/Or Pyeloscopy, Dx ([id number]) Yes 08/05/2023 12:00 PM EST >2.5cm right lower pole renal stone Cysto/Ureteroscopy W/Lithotripsy Inc Indwelling Stent Insertion ([id number]) Yes 08/05/2023 12:00 PM EST >2.5cm right lower pole renal stone MODIFIER HOLMIUM LASER Yes 08/05/2023 12:00 PM EST >2.5cm right lower pole renal stone TYPE AND SCREEN VALIDITY STAT 08/05/2023 10:11 AM EST ABORH RECHECK STATUS STAT 08/05/2023 10:11 AM EST TYPE AND SCREEN, SDP (FUTURE SURGERY, [facility] SAME DAY PROGRAM ONLY) STAT 08/05/2023 10:11 [...] developed and its performance characteristics ?determined by [facility] in a manner consistent with CLIA ?requirements. This test has not been cleared or approved by ?the U.S. Food and Drug Administration. ?Test Performed by: ?[facility] ?[address] [place] [address] ?Housing Counselor: Russel Clemons M.D. Ph.D.; CLIA# [id number] [facility] Calculus 08/05/2023 1:47 PM EST 08/06/2023 4:59 PM EST Narrative Resulting Agency Comment Spec In Lab Jonn Gustafson Jr., MD LAB SEND OUT ORDER YESSY Performing Organization Address [facility] Co de Phone Number [facility] [place] [address] * (ABNORMAL) Urine culture Cystoscopic Urine (08/05/2023 12:45 PM EST) [facility] Urine Culture 1,000-9,000 cfu/ml Keysha parapsilosis One colony of Gram Negative organisms (A) [facility] Organism Keysha parapsilosis(A) [facility] Cystoscopic Urine 08/05/2023 12:45 PM EST 08/05/2023 2:24 PM EST Comment:Bladder Urine for Cu lture and Analysis Narrative Resulting Agency Comment Spec In Lab Jonn Gustafson Jr., MD MICROBIOLOGY - GEN ERAL ORDERABLES Performing Organization Address [facility] [place] [address] * Type and Screen Validity (08/05/2023 10:11 AM EST) Pathologist [facility] T&S only valid at [facility] LABORATORY Comment:This Type and Screen result is only valid at the [facility] Blood 08/05/2023 10:1 1 AM EST 08/05/2023 10:40 AM EST Narrative Resulting Agency Comment Spec In Lab Jonn Gustafson Jr., MD BLOOD BANK LAB ORD ERABLES Performing Organization Address City/[facility]/ZIP Co de Phone Number [facility] [place] [address] * ABORH Recheck Status (08/05/2023 10:11 AM EST) ABORH Type Recheck Completed [facility] Blood 08/05/2023 10:1 1 AM EST 08/05/2023 10:40 AM EST Narrative Resulting Agency Comment Spec In Lab Jonn Gustafson Jr., MD BLOOD BANK LAB ORD ERABLES Performing Organization Address [facility] Co de Phone Number [facility] [place] [address] * Antibody screen (08/05/2023 10:11 AM EST) Ab Screen Interp Negative [facility] Expires at 2359 on: 08/08/2023 [facility] Blood 08/05/2023 10:1 1 AM EST 08/05/2023 10:40 AM EST Narrative Resulting Agency Comment Spec In Lab Jonn Gustafson Jr., MD BLOOD BANK LAB ORD ERABLES Performing Organization Address City/[facility] Co de Phone Number [facility] [place] [address] * ABO/Rh Typing (08/05/2023 10:11 AM EST) ABORH Type A Pos [facility] Blood 08/05/2023 10:1 1 AM EST 08/05/2023 10:40 AM EST Narrative Resulting Agency Comment Spec In Lab Jonn Gustafson Jr., MD BLOOD BANK LAB ORD ERABLES [facility] [place] [address] documented in this encounter Visit Diagnoses Not [...] mL Mini-Bag Plus (COMPLETED) 2 g, Intravenous, EVP AND CHIEF OPERATING OFFICER TO O.R., 1 dose, On Brisa 08/05/23 at 1045, Administer over 30 Minutes, Day of Surgery (Day of Procedure), Indication for (Active or Suspected): Prophylaxis 1211 (New Bag - Prov ider: Sandra Chen CRNA) fluconazole (Diflucan) 200 mg in sodium chloride 0.9% 100 mL infusion 200 mg, Intravenous, EVP AND CHIEF OPERATING OFFICER TO O.R., 1 dose, On Wed08/04/23 at 1830, Administer over 60 Minutes, Indication for (Active or Suspected): Prophylaxis, Restricted Antibiotic: Please indicate the most appropriate choice: Pre-approved indication (state the indication in comments field) 1830 (Due) fluconazole (Diflucan) 200 mg in sodium chloride 0.9% 100 mL infusion (COMPLETED) 200 mg, Intravenous, EVP AND CHIEF OPERATING OFFICER TO O.R., 1 dose, On Brisa 08/05/23 [...] reactions.) documented in this encounter Care Teams Cement Based Materials Pump Tender Relationship Specialty Start Date End Date Amanda Pino PA [address] [place] [address] PCP - General Internal Medicine 04/28/23 documented as of this encounter
--- OUTSIDE RECORDS SUMMARY | 2024-07-07 22:32 | XMS_ITS | Encounter Summary ---
Author Organization [facility] Address [facility] [place] [address] Care Team Providers Care Top Lift Cutter Name Role Phone Amanda Pino Primary Care Provider [phone] Encounter Details Date Type Department Care Team [...] EDT Office Visit Radiation Oncology at [address] [phone] Taya De La Vega PA [facility] DR HEMATOLOGY [place] [address] 11/13/2024 2:00 PM EDT Office Visit Hematology/Oncology at [address] [phone] Kirt Kennedy MD [facility] DR [place] [address] Alem Lazaro APRN [address] [place] [address] DR [place] [address] documented as of this encounter Visit Diagnoses Not on filedocumented in this encounter Care Teams Top Lift Cutter Relationship Specialty Start Date End Date Amanda Pino PA [address] [place] [address] PCP - General Internal Medicine 04/28/23 documented as of this encounter
--- OUTSIDE RECORDS SUMMARY | 2024-07-07 22:32 | XMS_ITS | Encounter Summary ---
Author Organization [facility] [place] [address] Care Team Providers Care Alternative Financing Specialist Name Role Phone Amanda Pino Primary Care Provider [phone] Reason for Visit * Auth/Cert (Routine) Specialty Diagnoses / Procedures Referred By Contaryan t Referred To Contact Diagnoses RIGHT STONE Procedures PRO PERQ NL/PL LITHOTRIPSY COMPLEX >2 CM DIE TRY OUT WORKER STAMPING LOCATIONS PRO PLMT NEPHROSTOMY CATH PRQ NEW [...] MODIFIER HOLMIUM LASER Adan Navarrete Jr., MD [facility] [place] [address] [facility] Referral ID Status Reason Start Date Expiration Date Visits Re quested Visits Authorized [id number] 1 1 Encounter Details Date Type Department Care Team (Late st Contact Info) Description 10/21/2023 12:36 PM EST Anesthesia Event [place] [address] Marisol Funez MD [facility] [place] [address] Oriana Guzman CRNA [facility] [place] [address] Anesthesia Record Procedure Summary Procedure Name Responsible [...] for questions and acknowledgement of understanding Marisol Funze MD, PhD 1622 Break/Relief Out 1702 Quick [...] Procedure Summary Date: 10/21/23 Room / Location: [facility] OR [address] [place] [address] MAIN OR Anesthesia Start: 1236 Anesthesia Stop: [...] All Anesthesia Providers: Anesthesiologist: Marisol Funez MD DAM WORKER: Oriana Guzman CRNA Vitals Value Taken Time BP 120/71 10/21/23 1900 Temp 36.1 ??C (97 ??F) 10/21/23 1830 Pulse 59 10/21/23 1834 Resp 17 10/21/23 1834 SpO2 98 % 10/21/231957 Pain Level 3 10/21/231927 Vitals shown include unfiled device data. Patient Location: PACU/[facility] Level of Consciousness: Conscious but Sleepy [...] approximate. at [facility] Dr Ko ? ? PRO CYSTO W URETEROSCOPY &/OR PYELOSCOPY, DX Right 08/05/2023 CYSTOURETEROSCOPY, DIAGNOSTIC (WRVU 5.75) performed by Adan Navarrete Jr., MD at [facility] MAIN OR ??? PRO CYSTO/URETEROSCOPY W/LITHOTRIPSY INC INDWELLING STENT INSERTION Left 08/05/2023 CYSTOURETEROSCOPY,DIAGNOSTIC,W/ LITHOTRIPSY INC. INSERTION OF INDWELLING URETERAL STENT (WRVU 8) performed by Adan Navarrete Jr., MD at [facility] MAIN OR ??? PRO CYSTOSCOPY, INSERT URETERAL STENT Right 08/05/2023 CYSTO, STENT PLACEMENT (WRVU 2.82) performed by Adan Navarrete Jr., MD at [facility] MAIN OR ??? PROSTATE BIOPSY 11/23/2019 Social [...] risks discussed with patient. Plan discussed with DAM WORKER. Anesthesia Screening documented in this encounter Plan of Treatment Upcoming Encounters Date Type Department Care Team (Late st Contact Info) Description 11/09/2024 10:30 AM EDT Office Visit Radiation Oncology at [address] [phone] Taya De La Vega PA [facility] [place] [address] 11/13/2024 2:00 PM EDT Office Visit Hematology/Oncology at [address] [phone] Kirt Kennedy MD [facility] DR [place] [address] Alem Lazaro APRN [address] [place] [address] DR HEMATOLOGY AND ONCOLOGY [place], [place] [id number] documented as of this encounter Visit Diagnoses Not on filedocumented in this encounter Administered Medications Inactive Administered Medications - up to 3 most recent administrations Medication Order MAR Action Action Date Dose Rate Site ceFAZolin (Ancef) 2 g vial attach to sodium chloride 0.9% 100 mL Mini-Bag Plus 2 g, Intravenous, GLOBAL COMPENSATION MANAGER TO O.R., 1 dose, On Brisa [...] 0.9% 200 mL infusion 400 mg, Intravenous, GLOBAL COMPENSATION MANAGER TO O.R., 1 dose, On Brisa [...] mg documented in this encounter Care Teams Alternative Financing Specialist Relationship Specialty Start Date End Date Amanda Pino PA [address] [place] [address] PCP - General Internal Medicine 04/28/23 documented as of this encounter
--- OUTSIDE RECORDS SUMMARY | 2024-07-07 22:32 | XMS_ITS | Encounter Summary ---
Author Organization Count Includes [facility] Address [facility] [place] [address] Care Team Providers Care Dental Hygienist Name Role Phone Amanda Pino Primary Care Provider Reason for Visit * Reason Comments Nephrolithiasis * Consultation (Routine) - Closed Specialty Diagnoses / Procedures Referred By Rogers t Referred To Contact Urology Diagnoses Calculus of kidney Amanda Pino PA [address] [place] [address] [facility] [place] [address] Referral ID Status Reason Start Date Expiration Date V isits Requested Visits Authorized [id number] Closed Consult, Test & Treat PCP Updated and/or Approved 04/23/2023 10/20/2023 [id number] Encounter Details Date Type Department Care Team (Late st Contact Info) Description 05/24/2023 11:00 AM EDT [place] [phone] Adan Navarrete Jr., MD [facility] [place] [address] Nephrolithiasis Social History Tobacco Use Types Packs/Day [...] history notable for seizure disorder, hypertension, depression, Allie 4+3 prostate cancer status post radiation persistent [...] he again attempted bilateral [facility]teroscopy at the [facility], but were unable to access either ureteral orifice ease uretereroscopically and placed bilateral 8 Green[place]ic stents. By report he was scheduled to undergo left ureteroscopy laser lithotripsy and right stent removal on 04/29/2023. These notes have not been forwarded, but he states he was told he would require PCNL to remove the stones andthat it cannot be performed at the [facility]. PMHx: Postoperative delirium, depression, bradycardia, subdural hemorrhage, [...] CVA tenderness to percussion bilaterally Imaging Studies: [facility] has not yet forwarded the most recent [...] most recent CT. I have again contacted [facility] urology team to request. With regard to [...] EDT Office Visit Radiation Oncology at [address] [phone] Taya De La Vega PA [facility] DR [place] [address] 11/13/2024 2:00 PM EDT Office Visit Hematology/Oncology at [address] [phone] Kirt Kennedy MD [facility] [place] [address] Alem Lazaro APR[address] HEMATOLOGY AND ONCOLOGY [place], [place] [phone] documented as of this encounter Procedures Procedure Name Priority Date/Time Associated Diagnosis Comments HEMOGRAM Routine 05/24/2023 1:38 PM EDT Nephrolithiasis DIFFERENTIAL, AUTOMATED Routine 05/24/2023 1:38 PM EDT Nephrolithiasis CBC (WITH DIFF) Routine 05/24/2023 1:38 PM EDT Nephrolithiasis BASIC METABOLIC PANEL STAT 05/24/2023 1:38 PM EDT Nephrolithiasis documented in this encounter Results * Differential, Automated (05/24/2023 1:38 PM EDT) Neutrophil % 66.8 % [facility] Neutrophil Absolute 4.67 1.70 - 6.10 x10(3)/[facility] Lymph % 19.7 % [facility] Lymphocytes Abs 1.4 0.9 - 3.2 x10(3)/[facility] Monocyte % 7.9 % [facility] Monocyte Abs 0.6 0.3 - 0.9 x10(3)/[facility] Eos % 4.6 % [facility] Eosinophils Abs 0.3 0.0 - 0.4 x10(3)/[facility] Basophil % 0.6 % [facility] Baso Absolute 0.0 0.0 - 0.1 x10(3)/[facility] Immature Gran % 0.40 % [facility] Comment: Immature granulocytes(IG's)percentage and absolute count will include metamyelocytes, myelocytes, and promyelocytes. Blood smears from CBCs yielding IG's will be scanned manually for concordance. If this scan disagrees with the automated IG or if promyelocytes are noted, a manual differential will be performed. Immature Gran Absolute 0.03 0.00 - 0.04 x10(3)/[facility] Blood 05/24/2023 1:38 PM EDT 05/24/2023 1:42 PM EDT Narrative Resulting Agency Comment Spec In Lab Adan Navarrete Jr., MD HEMATOLOGY ORDERAB LES [facility] [address] * (ABNORMAL) Hemogram (05/24/2023 1:38 PM EDT) White Blood Cell 7.0 4.0 - 9.5 x10(3)/ L [facility] Red Blood Cell 4.46(L) 4.58 - 5.54 x10(6)/mc L [facility] Hemoglobin 13.4(L) 13.7 - 16.5 g/dL [facility] Hematocrit 41.0 40.5 - 48.5 % [facility] Mean Cell Volume 91.9 82.9 - 93.1 fL [facility] Mean Cell Hemoglobin 30.0 27.5 - 32.1 pg [facility] Mean Cell Hemoglobin Concentration 32.7 32.0 - 35.7 g/dL [facility] Platelet 164 145 - 357 x10(3)/mc L [facility] RDW Standard Deviation 50.8(H) 36.0 - 45.0 fL [facility] RDW coefficient of variation 15.0(H) 11.4 - 13.8 % [facility] Mean Platelet Volume 8.6 7.6 - 12.9 fL [facility] NRBC% auto 0.0 % [facility] NRBC Absolute 0.000 0.000 - 0.000 x10(3)/mc L [facility] Blood 05/24/2023 1:38 PM EDT 05/24/2023 1:42 PM EDT Narrative Resulting Agency Comment Spec In Lab Adan Navarrete Jr., MD HEMATOLOGY ORDERAB LES [facility] [address] * (ABNORMAL) Basic Metabolic Panel (non-fasting) (05/24/2023 1:38 PM EDT) Glucose 118 65 - 199 mg/dL [facility] Comment:Diabetes: >=200 mg/d L plus symptoms Blood Urea Nitrogen 11 10 - 20 mg/dL [facility] Creatinine 0.76(L) 0.80 - 1.50 mg/dL [facility] Sodium 140 135 - 145 mmol/L [facility] Potassium 4.2 3.5 - 5.0 mmol/L [facility] Comment: Please note: ??Patients with WBC >100,000 may have falsely elevated Potassium levels. ??For accurate Potassium quantification in these patients send serum separator tube (gold top) for subsequent determinations. ??Contact the Clinical Chemistry Laboratory if there are any questions. Chloride 105 98 - 107 mmol/L [facility] Carbon Dioxide 25 22 - 31 mmol/L [facility] Anion Gap 10 5 - 15 mmol/L [facility] Calcium 9.2 8.5 - 10.5 mg/dL [facility] Est Glomerular Filtration Rate 93 >=60 mL/min/1. 73 m?? [facility] Comment: This patient's estimated GFR [...] MD CHEMISTRY ORDERABL ES Performing Organization Address City/State/[facility] Co de Phone Number [facility] [address] documented in this encounter Visit Diagnoses Diagnosis Nephrolithiasis Calculus of kidney documented in this encounter Care Teams Dental Hygienist Relationship Specialty Start Date End Date Amanda Pino PA [address] [place] [address] PCP - General Internal Medicine 04/28/23 documented as of this encounter
--- OUTSIDE RECORDS SUMMARY | 2024-07-07 22:32 | XMS_ITS | Encounter Summary ---
Author Organization [facility] Address [facility] [place] [address] Care Team Providers Care Clip On Sunglasses Inspector Name Role Phone Amanda Pino Primary Care Provider [phone] Encounter Details Date Type Department Care Team (Late Contact Info) Description 09/18/2023 Orders Only Hematology/Oncology at [address] [phone] Kirt Kennedy MD [facility] DR [place] [address] Follicular lymphoma, unspecified grade, unspecified body region [...] EDT Office Visit Radiation Oncology at [address] [phone] Taya De La Vega PA [facility] DR [place] [address] 11/13/2024 2:00 PM EDT Office Visit Hematology/Oncology at [address] [phone] Kirt Kennedy MD [facility] DR [place] [address] Alem Lazaro APRN [address] [place] [address] DR HEMATOLOGY [place] [address] documented as of this encounter Visit Diagnoses Diagnosis Follicular lymphoma, unspecified grade, unspecified body region documented in this encounter Care Teams Clip On Sunglasses Inspector Relationship Specialty Start Date End Date Amanda Pino PA [address] [place] [address] PCP - General Internal Medicine 04/28/23 documented as of this encounter
--- OUTSIDE RECORDS SUMMARY | 2024-07-07 22:32 | XMS_ITS | Encounter Summary ---
Author Organization [facility] [place] [address] Care Team Providers Care Sound Tester Name Role Phone Amanda Pino Primary Care Provider Reason for Visit * Auth/Cert (Routine) Specialty Diagnoses / Procedures Referred By Contaryan t Referred To Contact Diagnoses RIGHT STONE Procedures PRO PERQ NL/PL LITHOTRIPSY COMPLEX >2 CM BROADBAND TECHNICIAN LOCATIONS PRO PLMT NEPHROSTOMY CATH PRQ [...] MODIFIER HOLMIUM LASER Jonn Navarrete Jr., MD [facility] [place] [address] [facility] Referral ID Status Reason Start Date Expiration Date Visits Re quested Visits Authorized [id number] 1 1 Encounter Details Date Type Department Care Team (Late st Contact Info) Description 10/21/2023 10:46 AM EST - 10/21/2023 3:48 PM EST Surgery [place] [place] [address] Jonn Navarrete Jr., MD [facility] [place] [address] NEPHROLITHOTOMY, (PCNL) PERCUTANEOUS, COMPLEX (EG STONE > [...] Narcisa Eduardo Patient Age: 78 y.o. 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 No recent changes to health status. Left URS in 08/14 showed innumerable small stones and an impassable right ureter. CT showed persistent left stones. Prior Cx with rivera - Fluc On keflex for GNRs - Ancef Hospital Course: Patient was admitted to [facility] via the same day surgery program and [...] a walker. He sees neurology at the [place] and it's thought stressors can trigger seizures. [...] resident's interpretation and agree with the findings, Daiman Duggan MD at 10/22/2023 7:24 AM Thank you for letting us participate in the care of this patient. If you are a health care provider and have any questions regarding this report, please contact the number below. For patients who have questions please contact the health grounds caretaker that requested your imaging first. Pending Studies [...] may be used if needed and are ahpd-ned-ymmyrfs medications available at most local pharmacies. Prunes [...] will call you to schedule. Please call [phone] (clinic number for appointments) to confirm date [...] De La Vega PA Radiation Oncology at [facility] Arrive at: [facility] door at end of hallway [phone] 11/15/2023 2:30 PM Alem Lazaro APRN; Kirt Kennedy MD Hematology/Oncology at [facility] Arrive at: [facility] door at end of hallway [phone] Follow-Up: Future Appointments Date Time Provider Department Center 11/11/2023 10:30 AM Taya De La Vega PA [facility] [place] [facility] 11/15/2023 2:[address] [facility] Hem Off [facility] Primary Care Provider: MARISOL Munoz [phone] Unexpected Findings: Follow-up with neurologist immediately or [...] was managed by the Urology Team at [facility]. If you have any questions or concerns, please feel free to contact us. Provider Contact Information: Urology Clinic: [facility] (after business hours): Total time spent on discharge including lmet-cr-qyks time, care coordination, and discharge summarypreparation: 80 [...] may be used if needed and are kvsa-rav-yvqpsrr medications available at most local pharmacies. Prunes [...] will call you to schedule. Please call [phone] (clinic number for appointments) to confirm date [...] Gant RN - 10/22/2023 6:16 PM EST [facility] Short Stay Unit Discharge Note All [...] Note Patient: Narcisa Eduardo : 1945 Room: [address] Admit date: 10/21/2023 Attending: Jonn Navarrete [...] a walker. He sees neurology at the [place] and it's thought stressors can trigger seizures. 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 at [facility] Dr Ko PRO CYSTO W URETEROSCOPY &/OR PYELOSCOPY, DX Right 08/05/2023 CYSTOURETEROSCOPY, DIAGNOSTIC (WRVU 5.75) performed by Jonn Navarrete Jr., MD at [facility] MAIN OR PRO CYSTO/URETEROSCOPY W/LITHOTRIPSY INC INDWELLING STENT INSERTION Left 08/05/2023 CYSTOURETEROSCOPY,DIAGNOSTIC,W/ LITHOTRIPSY INC. INSERTION OF INDWELLING URETERAL STENT (WRVU 8) performed by Jonn Navarrete Jr., MD at [facility] MAIN OR PRO CYSTOSCOPY, INSERT URETERAL STENT Right 08/05/2023 CYSTO, STENT PLACEMENT (WRVU 2.82) performed by Jonn Navarrete Jr., MD at [facility] MAIN OR PROSTATE BIOPSY 11/23/2019 ALLERGIES [...] Operative Note Patient Name: Narcisa Eduardo : [id number] MR#: [id number] Case Date: 10/21/2023 Surgeon: Surgeon(s) and Role: [...] Jr., MD - 10/21/2023 1:50 PM EST [facility] Operative Note Patient Name: Narcisa Eduardo : [id number] MR#: [id number] Case Date: 10/21/2023 Surgeon: Surgeon(s) and Role: [...] a 78 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 Stentwas replaced with a new 8 Latvian 26 cm stent in a retrograde fashion. [...] collecting system on fluoroscopic evaluation. An 8 Latvian dilator was used to dilate the tract [...] superstiff wire inthe same fashion. A 21/22 Latvian mini PCNL obturator was advanced over the wire under fluoroscopy to the level of thecalyx. Over the obturator the 22 Latvian mini PCNL sheath was advanced and positioned [...] advanced into the renal pelvis. A 6 Latvian variable length double-J ureteral stent was then passed over the wire and down the right ureter in an antegrade fashion under fluoroscopic guidance. Proximal curl formed in the renal pelvis and distal curl within the bladder. The nephroscope was then removed. Surgiflo was applied to the tract. A 5 Latvian Pollick catheter was passed over the safety wire and the wire was withdrawn. Skin edges were reapproximated with 4-0 Monocryl. The Ella catheter was then secured to the skin using two 0-Silk sutures. The guidewire was then removed from the [place] and [place] catheter combination. The other remaining superstiffsafety wire [...] EDT Office Visit Radiation Oncology at [address] [phone] Taya De La Vega PA [facility] DR HEMATOLOGY [place] [address] 11/13/2024 2:00 PM EDT Office Visit Hematology/Oncology at [address] [phone] Kirt Kennedy MD [facility] DR HEMATOLOGY [place] [address] Alem Lazaro APRN [address] [place] [address] DR HEMATOLOGY AND ONCOLOGY [place], [place] [address] documented as of this encounter Procedures Procedure [...] 2:10 PM EST Cystoscopy, Remv Calculus, Simple (07225) 10/21/2023 12:35 PM EST RIGHT STONE Ultrasonic Guidance, Intraoperative ([id number]) 10/21/2023 12:35 PM EST RIGHT STONE Plmt Nephrostomy Cath Prq New Access Rs&I ([id number]) 10/21/2023 12:35 PM EST RIGHT STONE Cysto W Ureteroscopy &/Or Pyeloscopy, Dx ([id number]) 10/21/2023 12:35 PM EST RIGHT STONE Cysto/Uretero/Pyeloscop y, Calculus Tx ([id number]) 10/21/2023 12:35 PM EST RIGHT STONE Perq Nl/Pl Lithotripsy Complex >2 Cm Life Consultant Locations ([id number]) 10/21/2023 12:35 PM EST RIGHT STONE URINE CULTURE Routine 10/21/2023 9:48 AM EST ABORH RECHECK STATUS Routine 10/21/2023 9:45 AM EST TYPE AND SCREEN, SDP (FUTURE SURGERY, [facility] SAME DAY PROGRAM ONLY) STAT 10/21/2023 9:45 [...] who have questions please contact the health grounds caretaker that requested your imaging first. ? Narrative [...] superior endplate fracture deformity, unchanged Procedure Note aDmian Duggan MD - 10/22/2023 EXAMINATION: CT ABDOMEN [...] patients who have questions please contactthe health grounds caretaker that requested your imaging first. Jonn Navarrete Jr., MD IM CT ORDERABLES * (ABNORMAL) Differential, Automated (10/22/2023 12:50 AM EST) Neutrophil % 94.1 % [facility] Neutrophil Absolute 15.28(H) 1.70 - 6.10 x10(3)/mc L [facility] Lymph % 3.3 % [facility] Lymphocytes Abs 0.5(L) 0.9 - 3.2 x10(3)/mc L [facility] Monocyte % 1.9 % [facility] Monocyte Abs 0.3 0.3 - 0.9 x10(3)/mc L [facility] Eos % 0.1 % [facility] Eosinophils Abs 0.0 0.0 - 0.4 x10(3)/ L [facility] Basophil % 0.1 % [facility] Baso Absolute 0.0 0.0 - 0.1 x10(3)/mc L [facility] Immature Gran % 0.50 % [facility] Comment: Immature granulocytes(IG's)percentage and absolute count will include metamyelocytes, myelocytes, and promyelocytes. Blood smears from CBCs yielding IG's will be scanned manually for concordance. If this scan disagrees with the automated IG or if promyelocytes are noted, a manual differential will be performed. Immature Gran Absolute 0.08(H) 0.00 - 0.04 x10(3)/mc L [facility] Blood 10/22/2023 12:5 0 AM EST 10/22/2023 1:02 AM EST Narrative Resulting Agency Comment Spec In Lab Myacol Caruso MD HEMATOLOGY ORDERABLE S [facility] [place] [address] * (ABNORMAL) Hemogram (10/22/2023 12:50 AM EST) White Blood Cell 16.2(H) 4.0 - 9.5 x10(3)/mc L [facility] Red Blood Cell 4.02(L) 4.58 - 5.54 x10(6)/mc L [facility] Hemoglobin 12.3(L) 13.7 - 16.5 g/dL [facility] Hematocrit 37.7(L) 40.5 - 48.5 % [facility] Mean Cell Volume 93.8(H) 82.9 - 93.1 fL [facility] Mean Cell Hemoglobin 30.6 27.5 - 32.1 pg [facility] Mean Cell Hemoglobin Concentration 32.6 32.0 - 35.7 g/dL [facility] Platelet 276 145 - 357 x10(3)/mc L [facility] RDW Standard Deviation 46.9(H) 36.0 - 45.0 fL [facility] RDW coefficient of variation 13.6 11.4 - 13.8 % [facility] Mean Platelet Volume 8.8 7.6 - 12.9 fL [facility] NRBC% auto 0.0 % [facility] NRBC Absolute 0.000 0.000 - 0.000 x10(3)/mc L [facility] Blood 10/22/2023 12:5 0 AM EST 10/22/2023 1:02 AM EST Narrative Resulting Agency Comment Spec In Lab Maycol Caruso MD HEMATOLOGY ORDERABLE S [facility] [place] [address] * (ABNORMAL) Basic Metabolic Panel (non-fasting) (10/22/2023 12:50 AM EST) Glucose 211(H) 65 - 199 mg/dL [facility] Comment:Diabetes: >=200 mg/d L plus symptoms Blood Urea Nitrogen 14 10 - 20 mg/dL [facility] Creatinine 0.74(L) 0.80 - 1.50 mg/dL [facility] Sodium 138 135 - 145 mmol/L [facility] Potassium 4.5 3.5 - 5.0 mmol/L [facility] Comment: Please note: ??Patients with WBC >100,000 may have falsely elevated Potassium levels. ??For accurate Potassium quantification in these patients send serum separator tube (gold top) for subsequent determinations. ??Contact the Clinical Chemistry Laboratory if there are any questions. Chloride 103 98 - 107 mmol/L [facility] Carbon Dioxide 26 22 - 31 mmol/L [facility] Anion Gap 9 5 - 15 mmol/L [facility] Calcium 9.3 8.5 - 10.5 mg/dL [facility] Est Glomerular Filtration Rate 93 >=60 mL/min/1. 73 m?? [facility] Comment: This patient's estimated GFR [...] MD CHEMISTRY ORDERABL ES Performing Organization Address City/[facility] Co de Phone Number [facility] [place] [address] * Magnesium (10/22/2023 12:50 AM EST) Magnesium 0.82 0.69 - 1.07 mmol/L [facility] Blood 10/22/2023 12:5 0 AM EST 10/22/2023 1:02 AM EST Narrative Resulting Agency Comment Spec In Lab Jonn Navarrete Jr., MD CHEMISTRY ORDERABL ES Performing Organization Address City/[facility] [place] [address] * Phosphorus (10/22/2023 12:50 AM EST) Phosphorus 3.7 2.5 - 4.5 mg/dL [facility] Blood 10/22/2023 12:5 0 AM EST 10/22/2023 1:02 AM EST Narrative Resulting Agency Comment Spec In Lab Jonn Navarrete Jr., MD CHEMISTRY ORDERABL ES [facility] [place] [address] * XR Fluoro No Rad <1Hr - [...] developed and its performance characteristics ?determined by [facility] in a manner consistent with CLIA ?requirements. This test has not been cleared or approved by ?the U.S. Food and Drug Administration. ?Test Performed by: ?[facility] ?[address] [place] [address] ?Cafe Manager: Russel Clemons M.D. Ph.D.; CLIA# [id number] [facility] Calculus 10/21/2023 4:51 PM EST 10/22/2023 1:26 PM EST Narrative Resulting Agency Comment Spec In Lab Jonn Navarrete Jr., MD LAB SEND OUT ORDER YESSY Performing Organization Address City/State/[facility] Co de Phone Number [facility] [place] [address] * Kidney Stone Analysis (10/21/2023 4:47 PM [...] developed and its performance characteristics ?determined by [facility] in a manner consistent with CLIA ?requirements. This test has not been cleared or approved by ?the U.S. Food and Drug Administration. ?Test Performed by: ?[facility] ?[address] [place] [address] ?Cafe Manager: Russel Clemons M.D. Ph.D.; CLIA# [id number] [facility] Calculus 10/21/2023 4:47 PM EST 10/22/2023 1:26 PM EST Narrative Resulting Agency Comment Spec In Lab Jonn Navarrete Jr., MD LAB SEND OUT ORDER YESSY [facility] [address] [place] [address] * Anaerobic Culture (10/21/2023 3:25 PM EST) Anaerobic Culture No anaerobic organisms isolated [facility] Kidney 10/21/2023 3:25 PM EST 10/21/2023 4:44 PM EST Comment:Right Kidney Stone f or culture Narrative Resulting Agency Comment Spec In Lab Jonn Navarrete Jr., MD MICROBIOLOGY - GEN ERAL ORDERABLES Performing Organization Address City/[facility] [place] [address] * (ABNORMAL) Tissue culture (10/21/2023 3:25 PM EST) Tissue Culture Many Rivera parapsilosis(A) [facility] Gram Stain No Neutrophils seen. No microorganisms seen. (A) [facility] Organism Rivera parapsilosis(A) [facility] Kidney 10/21/2023 3:25 PM EST 10/21/2023 4:44 PM EST Comment:Right Kidney Stone f or culture Narrative Resulting Agency Comment Spec In Lab Jonn Navarrete Jr., MD MICROBIOLOGY - GEN ERAL ORDERABLES Performing Organization Address [facility] [place] [address] * (ABNORMAL) Urine culture Cystoscopic Urine (10/21/2023 2:10 PM EST) Urine Culture 1,000-9,000 cfu/ml Rivera parapsilosi s(A) [facility] Organism Rivera parapsilosi s(A) [facility] Cystoscopic Urine 10/21/2023 2:10 PM EST 10/21/2023 3:02 PM EST Comment:Bladder Urine for Cu lture Narrative Resulting Agency Comment Spec In Lab Jonn Navarrete Jr., MD MICROBIOLOGY - GEN ERAL ORDERABLES Performing Organization Address City/[facility]/ZIP Co de Phone Number [facility] [place] [address] * (ABNORMAL) Urine culture (10/21/2023 9:48 AM EST) Urine Culture 50,000-99,000 cfu/ml mixed mucosal stefania 50,000-99,000 cfu/ml Gram Negative organisms Note: Culture shows multiple bacterial species suggesting mucosal contamination. (A) [facility] Urine 10/21/2023 9:48 AM EST 10/21/2023 10:35 AM EST Narrative Resulting Agency Comment Spec In Lab Jonn Navarrete Jr., MD MICROBIOLOGY - GEN ERAL ORDERABLES Performing Organization Address [facility] Co de Phone Number [facility] [place] [address] * ABORH Recheck Status (10/21/2023 9:45 AM EST) ABORH Type Recheck Completed [facility] Blood 10/21/2023 9:45 AM EST 10/21/2023 9:56 AM EST Narrative Resulting Agency Comment Spec In Lab Jonn Navarrete Jr., MD BLOOD BANK LAB ORD ERABLES Performing Organization Address [facility] Phone Number [facility] [place] [address] * Type and Screen Future Surgery, [facility] SAME DAY PROGRAM ONLY) (10/21/2023 9:45 AM EST) ABORH Type A POSITIVE [facility] Patient BB History Found [facility] Expires at 2359 on: 10-24-2023 [facility] Ab Screen Interp Negative [facility] Blood 10/21/2023 9:45 AM EST 10/21/2023 9:45 AM EST Narrative Resulting Agency Comment Spec In Lab Jonn Navarrete Jr., MD BLOOD BANK LAB ORD ERABLES Performing Organization Address [facility] Co de Phone Number [facility] [place] [address] * SCAN DOC: IMPLANTABLE DEVICES (10/21/2023 12:00 [...] mL Mini-Bag Plus (COMPLETED) 2 g, Intravenous, MANAGER BUSINESS INTELLIGENCE TO O.R., 1 dose, On Wed10/21/23 at [...] 200 mL infusion (COMPLETED) 400 mg, Intravenous, MANAGER [employer] INTELLIGENCE TO O.R., 1 dose, On Brisa 10/21/23 [...] Routine documented in this encounter Care Teams Sound Tester Relationship Specialty Start Date End Date Amanda Pino PA [address] [place] [address] PCP - General Internal Medicine 04/28/23 documented as of this encounter
--- OUTSIDE RECORDS SUMMARY | 2024-07-07 22:32 | XMS_ITS | Encounter Summary ---
Author Organization [facility] [place] [address] Care Team Providers Care Gill Box Fixer Name Role Phone Amanda Pino Primary Care Provider [phone] Encounter Details Date Type Department Care Team (Late st Contact Info) Description 11/04/2023 Telephone Urology at [facility] [place] [phone] Perla Vail RN Social History Tobacco Use [...] - 11/04/2023 9:14 AM EDT Copied from [facility] #[id number]. Topic: Specialty Dept CRMs - Medication Issues [...] EDT Office Visit Radiation Oncology at [address] [phone] Taya De La Vega PA [facility] DR HEMATOLOGY [place] [address] 11/13/2024 2:00 PM EDT Office Visit Hematology/Oncology at [address] [phone] Kirt Kennedy MD [facility] DR HEMATOLOGY [place] [address] Alem Lazaro APRN [address] [place] [address] DR HEMATOLOGY AND ONCOLOGY [place], [place] [phone] documented as of this encounter Visit Diagnoses Not on filedocumented in this encounter Care Teams Gill Box Fixer Relationship Specialty Start Date End Date Amanda Pino PA [address] [place] [address] PCP - General Internal Medicine 04/28/23 documented as of this encounter
--- OUTSIDE RECORDS SUMMARY | 2024-07-07 22:32 | XMS_ITS | Encounter Summary ---
Author Organization [facility] [place] [address] Care Team Providers Care Bulk Pigment Reducer Name Role Phone Amanda Pino Primary Care Provider [phone] Encounter Details Date Type Department Care Team (Late st Contact Info) Description 10/20/2023 Telephone Urology at [facility] [place] [phone] Perla Vail, RN Social History Tobacco Use [...] as of this encounter Progress Notes * Peral Vail, RN - 10/20/2023 4:11 PM EST [...] care provider. Will confirm with urology resident workers compensation claims supervisor that it is ok to proceed with surgery. documented in this encounter Plan of Treatment Upcoming Encounters Date Type Department Care Team (Late st Contact Info) Description 11/09/2024 10:30 AM EDT Office Visit Radiation Oncology at [address] [phone] Taya De La Vgea PA [facility] [address] [place] [address] 11/13/2024 2:00 PM EDT Office Visit Hematology/Oncology at [address] [phone] Kirt Kennedy MD [facility] [place] [address] Alem Lazaro APRN [address] [place] [address] DR HEMATOLOGY AND ONCOLOGY [place], [place] [address] documented as of this encounter Visit Diagnoses Not on filedocumented in this encounter Care Teams Bulk Pigment Reducer Relationship Specialty Start Date End Date Amanda Pino PA [address] [place] [address] PCP - General Internal Medicine 04/28/23 documented as of this encounter
--- OUTSIDE RECORDS SUMMARY | 2024-07-07 22:32 | XMS_ITS | Encounter Summary ---
Author Organization [facility] Address [facility] [place] [address] Care Team Providers Care Classifications Officer Cc/Cm Name Role Phone Amanda Pino Primary Care Provider [phone] Reason for Referral * Diagnostic Test (Routine) - Closed Specialty Diagnoses / Procedures Referred By Contac t Referred To Contact Radiology Diagnoses Nephrolithiasis Procedures CT Abdomen & Pelvis wo Contrast Adan Navarrete Jr., MD [facility] [place] [address] [facility] [place] [address] Referral ID Status Reason Start Date Expiration Date V isits Requested Visits Authorized [id number] Closed Specialty Service Requested 09/06/2023 03/06/2025 1 1 Reason for Visit * Diagnostic Test (Routine) - Closed Specialty Diagnoses / Procedures Referred By Contac t Referred To Contact Radiology Diagnoses Nephrolithiasis Procedures CT Abdomen & Pelvis wo Contrast Adan Navarrete Jr., MD [facility] [place] [address] [facility] [place] [address] Referral ID Status Reason Start Date Expiration Date V isits Requested Visits Authorized [id number] Closed Specialty Service Requested 09/06/2023 03/06/2025 1 1 Encounter Details Date Type Department Care Team (Latest Contact Info) Description 09/06/2023 12:03 PM EST - 09/06/2023 11:59 PM EST Hospital [place] [phone] Adan Navarrete Jr., MD [facility] [place] [address] Nephrolithiasis Discharge Disposition: Home Social History Tobacco Use Types Packs/Day Years Used Date Smoking Tobacco: Every Day Cigarettes 1 60.9 Started: 1963 Smokeless Tobacco: Never Comments:rolls on cigarettes smokes less then 20 a day Alcohol Use Standard Drinks/Week Comments Not Currently 0 (1 standard drink = 0.6 oz pure alcohol) 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 [facility] Inpatient Questions Answer Date Recorded Does Anyone [...] EDT Office Visit Radiation Oncology at [address] [phone] Taya De La Vega PA [facility] DR HEMATOLOGY [place] [address] 11/13/2024 2:00 PM EDT Office Visit Hematology/Oncology at [address] [phone] Kirt Kennedy MD [facility] DR HEMATOLOGY [place] [address] Alem Lazaro APRN [address] [place] [address] [place] [address] documented as of this encounter [...] who have questions please contact the health acute care nurse that requested your imaging first. ? Narrative [...] kidney documented in this encounter Care Teams Classifications Officer Cc/Cm Relationship Specialty Start Date End Date Amanda Pino PA [address] [place] [address] PCP - General Internal Medicine 04/28/23 documented as of this encounter
--- OUTSIDE RECORDS SUMMARY | 2024-07-07 22:32 | XMS_ITS | Encounter Summary ---
Author Organization [facility] Address [facility] [place] [address] Care Team Providers Care Development Editor Name Role Phone Amanda Pino Primary Care Provider [phone] Encounter Details Date Type Department Care Team (Late Contact Info) Description 05/06/2023 Ancillary Procedure Radiology Library at [facility] [place] [address] Adan Navarrete Jr., MD [facility] [place] [address] Social History Tobacco Use Types Packs/Day Years [...] EDT Office Visit Radiation Oncology at [address] [phone] Taya De La Vega PA [facility] HEMATOLOGY [place] [address] 11/13/2024 2:00 PM EDT Office Visit Hematology/Oncology at [address] [phone] Kirt Kennedy MD [facility] DR HEMATOLOGY [place] [address] Alem Lazaro, SURFACE PLATE INSPECTOR [address] [place] [address] DR HEMATOLOGY AND ONCOLOGY [place], [place] [address] documented as of this encounter Procedures Procedure Name Priority Date/Time Associated Diagnosis Comments FILM LIBRARY STORAGE ONLY CT CHEST ABDOMEN PELVIS Routine 05/06/2023 12:00 AM EDT documented in this encounter Results * Film Library- Storage Only CT Chest Abdomen Pelvis (05/06/2023 12:00 AM EDT) Narrative [facility] - 09/13/2023 6:13 PM EST This exam is auto-finalizing. It's purpose is for storage only. Adan Navarrete Jr., MD IMG FILM LIBRARY O RDERABLES [place], [place] documented in this encounter Visit Diagnoses Not on filedocumented in this encounter Care Teams Development Editor Relationship Specialty Start Date End Date Amanda Pino PA [address] [place] [address] PCP - General Internal Medicine 04/28/23 documented as of this encounter
--- OUTSIDE RECORDS SUMMARY | 2024-07-07 22:32 | XMS_ITS | Encounter Summary ---
Author Organization [facility] [place] [address] Care Team Providers Care Registrar Museum Name Role Phone Amanda Pino Primary Care Provider [phone] Encounter Details Date Type Department Care Team (Late st Contact Info) Description 11/03/2023 [place] [phone] Alex Sewell, RN Social History Tobacco Use [...] patient's , Darrel, regarding her [facility] message about this patient's prescription for Fluconazole [...] before surgery. Sherequested to to this at [facility] lab. I told her we will fax them an order for his urine culture. I advised her that I will notify Dr. Navarrete and have a new prescription ordered with appropriate instructions. documented in this encounter Plan of Treatment Upcoming Encounters Date Type Department Care Team (Late st Contact Info) Description 11/09/2024 10:30 AM EDT Office Visit Radiation Oncology at [address] [phone] Taya De La Vega PA [facility] [place] [address] 11/13/2024 2:00 PM EDT Office Visit Hematology/Oncology at [address] [phone] Kirt Kennedy MD [facility] DR [place] [address] Alem Lazaro APRN [address] [place] [address] DR HEMATOLOGY AND ONCOLOGY [place], [place] [phone] documented as of this encounter Visit Diagnoses Diagnosis Pre-op testing Preoperative examination, unspecified documented in this encounter Care Teams Registrar Museum Relationship Specialty Start Date End Date Amanda Pino PA [address] [place] [address] PCP - General Internal Medicine 04/28/23 documented as of this encounter
--- OUTSIDE RECORDS SUMMARY | 2024-07-07 22:32 | XMS_ITS | Encounter Summary ---
Author Organization [facility] Address [facility] [place] [address] Care Team Providers Care Italian Tutor Name Role Phone Amanda Pino Primary Care Provider [phone] Encounter Details Date Type Department Care Team (Late st Contact Info) Description 10/18/2023 [place] [phone] Rajinder Melvin MD [facility] [place] [address] Social History Tobacco Use Types Packs/Day Years [...] days of cephalexin to Danny Patino in [facility]. Rajinder Melvin MD 10/18/2023 documented in this encounter Plan of Treatment Upcoming Encounters Date Type Department Care Team (Late st Contact Info) Description 11/09/2024 10:30 AM EDT Office Visit Radiation Oncology at [address] [phone] Taya De La Vega PA [facility] DR HEMATOLOGY [place] [address] 11/13/2024 2:00 PM EDT Office Visit Hematology/Oncology at [address] [phone] Kirt Kennedy MD [facility] DR HEMATOLOGY [place] [address] Alem Lazaro APRN [address] [place] [address] DR HEMATOLOGY [place] [address] documented as of this encounter Visit Diagnoses Not on filedocumented in this encounter Care Teams Italian Tutor Relationship Specialty Start Date End Date Amanda Pino PA [address] [place] [address] PCP - General Internal Medicine 04/28/23 documented as of this encounter
--- OUTSIDE RECORDS SUMMARY | 2024-07-07 22:32 | XMS_ITS | Encounter Summary ---
Author Organization [facility] [place] [address] Care Team Providers Care Shift Boss Name Role Phone Amanda Pino Primary Care Provider [phone] Encounter Details Date Type Department Care Team (Late st Contact Info) Description 07/28/2023 Telephone Urology at [facility] [place] [phone] Perla Vail RN Social History Tobacco Use [...] - 07/28/2023 4:58 PM EST Copied from [facility] #[id number]. Topic: Specialty Dept CRMs - Generic Call [...] AM EDT Office Visit Radiation Oncology at [address] [phone] Taya De La Vega PA [facility] DR [place] [address] 11/13/2024 2:00 PM EDT Office Visit Hematology/Oncology at [address] [phone] Kirt Kennedy MD [facility] DR [place] [address] Alem Lazaro APRN [address] [place] [address] DR HEMATOLOGY AND ONCOLOGY [place], [place] [address] documented as of this encounter Visit Diagnoses Not on filedocumented in this encounter Care Teams Shift Boss Relationship Specialty Start Date End Date Amanda Pino PA [address] [place] [address] PCP - General Internal Medicine 04/28/23 documented as of this encounter
[2024-07-07 22:33] LABS: Abs Immature Grans 0.07 10^3/uL (0.0-0.06); Absolute Basophil Count 0.03 10^3/uL (0.0-0.2); Absolute Lymphocyte Count 0.66 10^3/uL (1.2-3.4); Absolute Monocyte Count 0.82 10^3/uL (0.1-0.8); Basophils % 0.2 %; Eosinophils % 0.1 %; HCT 39.1 % (40.0-50.0); HGB 12.8 g/dL (13.5-17.5); Immature Grans % 0.5 %; Lymphocytes % 4.8 %; MCH 29.8 pg (27.0-33.0); MCHC 32.7 % (32.0-36.0); MCV 91 fL (80-95); MPV 9.2 fL (8.0-11.0); Monocytes % 5.9 %; Neutrophils % 88.5 %; Platelet Count 142 10^3/uL (130-400); RBC 4.29 10^6/uL (4.36-5.78); RDW 16.3 % (11.8-14.1); RDW-SD 55.2 fL; WBC 13.85 10^3/uL (4.4-10.8)
--- OUTSIDE RECORDS SUMMARY | 2024-07-07 22:33 | XMS_ITS | Encounter Summary ---
Author Organization [facility] Address [facility] [place] [address] Care Team Providers Care Painter Chassis Name Role Phone Alfredo Montoya DO Primary Care Provider [phone] Encounter Details Date Type Department Care Team (Late st Contact Info) Description 11/03/2021 2:30 PM EDT Office Visit Hematology/Oncology at [address] [phone] Kirt Kennedy MD [facility] DR HEMATOLOGY [place] [address] Martha Card, RN Malignant neoplasm of prostate; [...] original note were not included[place] [address] [phone] Narcisa Eduardo is being seen for the evaluation of follicular lymphoma. Assessment & Plan: Narcisa Eduardo is a 76 y.o. male patient with a PMH of an abdominal aortic aneurysm, thoracic aortic aneurysm, hypertension, prior alcohol abuse, tobacco abuse, a stroke in early 2019 and follicular lymphoma who completed EBRT for localized prostate cancer 04/2020 who wishes to followup here in [facility] for his lymphoma rather than at the [facility] given the proximity to his home. He [...] Kirt Kennedy MD, MS 11/03/2021 Thoracic Oncology [facility] CC: Alfredo Montoya, DO Jen Eugene ANIMAL SCIENCE INSTRUCTOR HPI/Interval History/Subjective: Accompanied by his . Has some urinary hesitancy and frequency. Frequent nocturia. No weight loss though has had difficulty gaining weight. 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 No night sweats. He reports not drinking. Smoking 1 ppd. Not interested in quitting. No adenopathy that he has noted. 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 10/24 ppd. X30-40 years Alcohol use: Stopped drinking in 09/2019 after a stroke when he was placed on Plavix Drug use: None Loves gardening but can't do it any more. service: [employer]. [place] Era. Had Agent Senatobia Exposure. 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 Treated at the [facility] by Dr. Martha Castañeda - PET-CT 11/26/15 [...] (he opted to not receive ADT) at [facility] with Dr. Evans 02/26-04/26/20 97.2 Gy in 44 fractions PMH: 1. AAA - Abdominal aortic aneurysm 2. Thoracic aortic aneurysm without rupture 3. Follicular non-Hodgkin lymphoma, small cleaved cell 4. Tobacco dependence 5. Alcohol dependence 6. Hypertension 7. Family history of prostate cancer 8. Family history of malignant neoplasm of breast 9. Personal History of Exposure to Agent Senatobia No flowsheet data found. Patient Active Problem [...] cell count normal at 6.0, hemoglobin 14.7 [id number] absolute neutrophil count 4.6 absolute lymphocyte count [...] left inguinal node 03/18/15; taken from the [facility] pathology report - Follicular lymphoma NOTE: Sections [...] EDT Office Visit Radiation Oncology at [address] [phone] Taya De La Vega PA [facility] HEMATOLOGY [place] [address] 11/13/2024 2:00 PM EDT Office Visit Hematology/Oncology at [address] [phone] Kirt Kennedy MD [facility] HEMATOLOGY [place] [address] Alem Lazaro APRN [address] [place] [address] [place] [address] documented as of this encounter Visit Diagnoses Diagnosis Malignant neoplasm of prostate Follicular lymphoma, unspecified grade, unspecified body region documented in this encounter Care Teams Painter Chassis Relationship Specialty Start Date End Date Alfredo Montoya DO [address] [place] [address] PCP - General Internal Medicine 12/04/19 04/27/23 documented as of this encounter
--- OUTSIDE RECORDS SUMMARY | 2024-07-07 22:33 | XMS_ITS | Encounter Summary ---
Author Organization [facility] Address [facility] [place] [address] Care Team Providers Care Mold Capper Name Role Phone Jan Alfredo Jorge GARDNER Primary Care Provider [phone] Encounter Details Date Type Department Care Team (Late Contact Info) Description 04/16/2023 Ancillary Procedure Radiology Library at [facility] [place] [address] Adan Navarrete Jr., MD [facility] [place] [address] Social History Tobacco Use Types Packs/Day Years [...] AM EDT Office Visit Radiation Oncology at [address] [phone] Taya De La Vega PA [facility] HEMATOLOGY [place] [address] 11/13/2024 2:00 PM EDT Office Visit Hematology/Oncology at [address] [phone] Kirt Kennedy MD [facility] DR HEMATOLOGY [place] [address] Alem Lazaro, [address] HEMATOLOGY AND ONCOLOGY [place], [place] [address] documented as of this encounter Procedures Procedure Name Priority Date/Time Associated Diagnosis Comments FILM LIBRARY STORAGE ONLY CT ABDOMEN AND PELVIS Routine 04/16/2023 12:00 AM EDT documented in this encounter Results * Film Library- Storage Only CT Abdomen & Pelvis (04/16/2023 12:00 AM EDT) Narrative [facility] - 09/13/2023 6:15 PM EST This exam is auto-finalizing. It's purpose is for storage only. Adan Navarrete Jr., MD IMG FILM LIBRARY O RDERABLES [place], [place] documented in this encounter Visit Diagnoses Not on filedocumented in this encounter Care Teams Mold Capper Relationship Specialty Start Date End Date Alfredo Montoya DO [address] [place] [address] PCP - General Internal Medicine 12/04/19 04/27/23 documented as of this encounter
--- OUTSIDE RECORDS SUMMARY | 2024-07-07 22:33 | XMS_ITS | Encounter Summary ---
[place] [address] Care Team Providers Care Scrap Baller Name Role Phone Amanda Pino Primary Care Provider [phone] Reason for Referral * Consultation (Routine) - Closed Specialty Diagnoses / Procedures Referred By Contac t Referred To Contact Urology Diagnoses Calculus of kidney Amanda Pino PA [address] [place] [address] [facility] [place] [address] Referral ID Status Reason Start Date Expiration Date V isits Requested Visits Authorized [id number] Closed Consult, Test & Treat PCP Updated and/or Approved 04/23/2023 10/20/[phone] Encounter Details Date Type Department Care Team (Late st Contact Info) Description 04/28/2023 Transcribe Orders eDH Incoming Referrals [phone] Amanda Pino PA [address] [place] [address] Calculus of kidney Social History Tobacco Use [...] EDT Office Visit Radiation Oncology at [address] [phone] Taya De La Vega PA [facility] [place] [address] 11/13/2024 2:00 PM EDT Office Visit Hematology/Oncology at [address] [phone] Kirt Kennedy MD [facility] [place] [address] Alem Lazaro APRN [address] [place] [address] DR HEMATOLOGY AND ONCOLOGY [place], [place] [phone] Scheduled Referrals Name Type Priority Associated Diagnoses Orde r Schedule Referral to Urology Outpatient Referral Routine Calculus of kidney Ordered: 04/28/2023 documented as of this encounter Visit Diagnoses Diagnosis Calculus of kidney documented in this encounter Care Teams Scrap Baller Relationship Specialty Start Date End Date Amanda Pino PA [address] [place] [address] PCP - General Internal Medicine 04/28/23 documented as of this encounter
--- OUTSIDE RECORDS SUMMARY | 2024-07-07 22:33 | XMS_ITS | Encounter Summary ---
Author Organization [facility] [place] [address] Care Team Providers Care Vegetable Picker Name Role Phone Alfredo Montoya DO Primary Care Provider [phone] Encounter Details Date Type Department Care Team (Late Contact Info) Description 02/26/2021 Telephone [place] [phone] Yuliya Kramer Social History Tobacco Use Types [...] 4:25 PM EDT Received telephone call from [facility] regarding prescription written for Vancomycin 50 mg/ml recon solution. Pharmacy does not have in stock and was asking for permission to convert to tablet. Text page sent to prescriber (Leanna EMMANUEL) to call pharmacy [facility] at [phone] documented in this encounter Plan of Treatment Upcoming Encounters Date Type Department Care Team (Late st Contact Info) Description 11/09/2024 10:30 AM EDT Office Visit Radiation Oncology at [address] [phone] Taya De La Vega PA [facility] DR [place] [address] 11/13/2024 2:00 PM EDT Office Visit Hematology/Oncology at [address] [phone] Kirt Kennedy MD [facility] DR [place] [address] Alem Lazaro APRN [address] [place] [address] DR HEMATOLOGY AND ONCOLOGY [place], [place] [phone] documented as of this encounter Visit Diagnoses Not on filedocumented in this encounter Care Teams Vegetable Picker Relationship Specialty Start Date End Date Alfredo Montoya DO [address] [place] [address] PCP - General Internal Medicine 12/04/19 04/27/23 documented as of this encounter
--- OUTSIDE RECORDS SUMMARY | 2024-07-07 22:33 | XMS_ITS | Encounter Summary ---
Author Organization [facility] Address [facility] [place] [address] Care Team Providers Care Construction Framer Name Role Phone Alfredo Montoya DO Primary Care Provider [phone] Encounter Details Date Type Department Care Team [...] EDT Office Visit Radiation Oncology at [address] [phone] Taya De La Vega PA [facility] DR [place] [address] 11/13/2024 2:00 PM EDT Office Visit Hematology/Oncology at [address] [phone] Kirt Kennedy MD [facility] DR [place] [address] Alem Lazaro APRN [address] [place] [address] DR [place] [address] documented as of this encounter Visit Diagnoses Not on filedocumented in this encounter Care Teams Construction Framer Relationship Specialty Start Date End Date Alfredo Montoya DO [address] [place] [address] PCP - General Internal Medicine 12/04/19 04/27/23 documented as of this encounter
--- OUTSIDE RECORDS SUMMARY | 2024-07-07 22:33 | XMS_ITS | Encounter Summary ---
Author Organization [facility] Address [facility] [place] [address] Care Team Providers Care Bibliographic Services Specialist Name Role Phone Jan Alfredo Patel DO Primary Care Provider [phone] Encounter Details Date Type Department Care Team (Late st Contact Info) Description 05/13/2021 Telephone Neurosurgery at [facility] [place] [phone] Silvia Zapata APRN [facility] [place] [address] Social History Tobacco Use Types Packs/Day Years [...] EDT Called pt, spoke to Mrs. Eduardo, [facility] been [facility] she is going to call [facility] to schedule CTH and f/u with Dr. Ramires who is now back. I transferred her to Neuro to cancel Dr. Astudillo's appt and provided her with HIS release of info # Pt wishes not to f/u with NS in [place] he will f/u locally with [facility] * Telephone Encounter - Sangeeta Pino - 06/12/2021 9:57 AM EDT Called [facility] last CTH done 04/02 for [facility] re: status of scheduling CTH at [facility] * Telephone Encounter - Sangeeta Pino - 06/04/2021 2:[address] order and BCB ov note to [facility] [phone] To schedule CTH at [facility] * Telephone Encounter - Sangeeta Pino - 05/16/2021 12:05 PM EDT Faxed [facility] to request new referral so CT may be scheduled=05/16 * Telephone Encounter - Sangeeta Pino - 05/13/2021 2:51 PM EDT Called =LM at [facility] to update referral for NS, end of February Faxed CT order to [facility] to schedule in 3 weeks. BCB to [...] next 3-4 weeks to be done in [place]. Mr Jayce or his will call if he has any falls, worsening headache or neurologic deficits in meantime. documented in this encounter Plan of Treatment Upcoming Encounters Date Type Department Care Team (Late st Contact Info) Description 11/09/2024 10:30 AM EDT Office Visit Radiation Oncology at [address] [phone] Taya De La Vega PA [facility] DR HEMATOLOGY [place] [address] 11/13/2024 2:00 PM EDT Office Visit Hematology/Oncology at [address] [phone] Kirt Kennedy MD [facility] DR HEMATOLOGY [place] [address] Alem Lazaro APRN [address] [place] [address] DR HEMATOLOGY AND ONCOLOGY [place], [place] [phone] documented as of this encounter Visit Diagnoses Diagnosis SDH (subdural hematoma) Subdural hemorrhage documented in this encounter Care Teams Bibliographic Services Specialist Relationship Specialty Start Date End Date Alfredo Montoya DO [address] [place] [address] PCP - General Internal Medicine 12/04/19 04/27/23 documented as of this encounter
--- OUTSIDE RECORDS SUMMARY | 2024-07-07 22:33 | XMS_ITS | Encounter Summary ---
Author Organization Counts Include [facility] Address [facility] [place] [address] Care Team Providers Care Heating Mechanic Name Role Phone Alfredo Montoya DO Primary Care Provider Encounter Details Date Type Department Care Team (Late st Contact Info) Description 09/16/2021 Orders [place] [address] Jen Eugene APRN [facility] [place] [address] Malignant neoplasm of prostate (Primary Dx) Social [...] EDT Office Visit Radiation Oncology at [address] [phone] Taya De La Vega PA [facility] HEMATOLOGY [place] [address] 11/13/2024 2:00 PM EDT Office Visit Hematology/Oncology at [address] [phone] Kirt Kennedy MD [facility] DR HEMATOLOGY [place] [address] Alem Lazaro APRN [address] [place] [address] DR HEMATOLOGY AND ONCOLOGY [place], [place] [address] documented as of this encounter Visit Diagnoses Diagnosis Malignant neoplasm of prostate- Primary documented in this encounter Care Teams Heating Mechanic Relationship Specialty Start Date End Date Alfredo Montoya DO [address] [place] [address] PCP - General Internal Medicine 12/04/19 04/27/23 documented as of this encounter
--- OUTSIDE RECORDS SUMMARY | 2024-07-07 22:33 | XMS_ITS | Encounter Summary ---
Author Organization Counts Include [facility] Address [facility] [place] [address] Care Team Providers Care Licensed Master Social Worker Name Role Phone Alfredo Montoya DO Primary Care Provider [phone] Encounter Details Date Type Department Care Team (Late st Contact Info) Description 02/27/2021 Telephone General Surgery at [facility] [place] [phone] Charleen Clement RN Social History Tobacco Use [...] EDT Office Visit Radiation Oncology at [address] [phone] Taya De La Vega PA [facility] [place] [address] 11/13/2024 2:00 PM EDT Office Visit Hematology/Oncology at [address] [phone] Kirt Kennedy MD [facility] DR [place] [address] Alem Lazaro APRN [address] [place] [address] DR HEMATOLOGY AND ONCOLOGY [place], [place] [phone] documented as of this encounter Visit Diagnoses Not on filedocumented in this encounter Care Teams Licensed Master Social Worker Relationship Specialty Start Date End Date Alfredo Montoya DO [address] [place] [address] PCP - General Internal Medicine 12/04/19 04/27/23 documented as of this encounter
--- OUTSIDE RECORDS SUMMARY | 2024-07-07 22:33 | XMS_ITS | Encounter Summary ---
Author Organization [facility] Address [facility] [place] [address] Care Team Providers Care Sweet Goods Machine Operator Name Role Phone Alfredo Montoya DO Primary Care Provider [phone] Reason for Referral * Consultation (Routine) - Closed Specialty Diagnoses / Procedures Referred By Contac t Referred To Contact Wound Care Diagnoses Open wound of right hand without foreign body, unspecified wound type, subsequent encounter Kristi Carey APRN [facility] [address] [facility] [place] [address] Referral ID Status Reason Start Date Expiration Date V isits Requested Visits Authorized [id number] Closed Consult, Test & Treat 03/14/2021 03/14/2022 1 1 Reason for Visit * Reason Comments Follow-up Encounter Details Date Type Department Care Team (Late st Contact Info) Description 03/14/2021 8:30 AM EDT Office [place] [address] Kristi Carey APRN [facility] [place] [address] Open wound of right hand [...] encounter Progress Notes * CherryKristi Mary Kay, BUTTONHOLE MAKER - 03/14/2021 8:30 AM EDT Narcisa Eduardo [...] Torres' the pt's urologist on 03/21/21 per [facility] notes. His giraldo was kept in [...] AM EDT Office Visit Radiation Oncology at [address] [phone] Taya De La Vega PA [facility] DR [place] [address] 11/13/2024 2:00 PM EDT Office Visit Hematology/Oncology at [address] [phone] Kirt Kennedy MD [facility] DR [place] [address] Alem Lazaro APRN [address] [place] [address] DR HEMATOLOGY AND ONCOLOGY [place], [place] [phone] Scheduled Referrals Name Type Priority Associated Diagnoses Orde r Schedule Referral to Wound Clinic Outpatient Referral Routine Open wound of right hand without foreign body, unspecified wound type, subsequent encounter Ordered: 03/14/2021 documented as of this encounter Visit Diagnoses Diagnosis Open wound of right hand without foreign body, unspecified wound type, subsequent encounter documented in this encounter Care Teams Sweet Goods Machine Operator Relationship Specialty Start Date End Date Alfredo Montoya DO [address] [place] [address] PCP - General Internal Medicine 12/04/19 04/27/23 documented as of this encounter
--- OUTSIDE RECORDS SUMMARY | 2024-07-07 22:33 | XMS_ITS | Encounter Summary ---
Author Organization [facility] Address [facility] [place] [address] Care Team Providers Care Trimmer Sorter Name Role Phone Alfredo Montoya DO Primary Care Provider [phone] Encounter Details Date Type Department Care Team (Late st Contact Info) Description 10/22/2022 1:00 PM EST Office Visit Radiation Oncology at [address] [phone] Jen Eugene APRN [facility] [place] [address] Malignant neoplasm of prostate (Primary Dx) Social [...] this encounter Progress Notes * Jen Eugene, PIPE PRODUCTION WORKER - 10/22/2022 1:00 PM ESTSummary: 77 year old M dx Unfavorable Intermediate-Risk Prostate Cancer. Compl xrt 04/26/20 [facility] [place] [address] Phone: RADIATION ONCOLOGY FOLLOW UP NOTE Date of visit: 10/13/2022 Patient Narcisa Eduardo 1945 PCP: Alfredo Montoya DO Urologist: Charleen Torres MD//also went to [facility] Urology Radiation oncologist: Dr Que Evans [...] Prior consultations / recommendations: Dr Thomas - [facility] - 12/01/19 - options of , RP, RT reviewed. Patient interested in learning more about RT. Referral placed.? PSA History:?? 11/03/19 - 12.9 ?? Pathology Results / Location:?? TRUS Bx 11/23/19 ([facility]) - ?Gl 4+3 x 1 [...] 2021 pt and describe urosepsis admission to [facility]. Since recovering he has been successful in keeping the catheter out and voids on his own. He still does wake up at [facility] to void x 2-3x and MD at [facility] took him off the prazosin [...] after that he will sleep through the [facility]. Narcisa agrees with this assessment. No hematuria, has had chronic UTIs. Does not hydrate well per . Unfortunately, he has had episodes of urosepsis and these have led to seizure activity and need for ambulance ride to local hospital. This ends up being to [facility]. They would favor going to [facility] but the ambulance must deliver [...] ??? COLONOSCOPY 2011 date is approximate. at [facility] Dr Ko ??? PROSTATE BIOPSY 11/23/2019 [...] ??? COLONOSCOPY 2011 date is approximate. at [facility] Dr Ko ??? PROSTATE BIOPSY 11/23/2019 Family [...] head on pavement. Aneurysm found. Follows with [facility] neurology no longer on ASA. Mood: Usually [...] urosepsis (last spring 2021) and multiple other [place] managed health issues that reflects keep setting [...] was in November 2021 in-pt tx at [facility]. Cath was removed and he is able [...] bleed He was treated for this in [place]. He has a neurologist locally at [facility]. No new focal deficits but memory can sometimes be an issue. His next prostate cancer followup will be in six months with PSA and testosterone prior to visit. He and live near [facility] and are happy to come [...] the radiation therapy/prostate cancer Jen Eugene MSN, PIPE PRODUCTION WORKER, WELDER BOILERMAKER-C Nurse Practitioner Radiation Oncology documented in this encounter Plan of Treatment Upcoming Encounters Date Type Department Care Team (Late st Contact Info) Description 11/09/2024 10:30 AM EDT Office Visit Radiation Oncology at [address] [phone] Taya De La Vega PA [facility] [place] [address] 11/13/2024 2:00 PM EDT Office Visit Hematology/Oncology at [address] [phone] Kirt Kennedy MD [facility] [place] [address] Alem Lazaro APRN [address] [place] [address] DR HEMATOLOGY AND ONCOLOGY [place], [place] [phone] documented as of this encounter Visit Diagnoses Diagnosis Malignant neoplasm of prostate- Primary documented in this encounter Care Teams Trimmer Sorter Relationship Specialty Start Date End Date Alfredo Montoya DO [address] [place] [address] PCP - General Internal Medicine 12/04/19 04/27/23 documented as of this encounter
--- OUTSIDE RECORDS SUMMARY | 2024-07-07 22:33 | XMS_ITS | Encounter Summary ---
Author Organization [facility] Address [facility] [place] [address] Care Team Providers Care Commercial Stripper Name Role Phone Alfredo Montoya DO Primary Care Provider [phone] Encounter Details Date Type Department Care Team (Late st Contact Info) Description 03/14/2021 10:30 AM EDT [place] [phone] Silvia Zapata APRN [facility] [place] [address] Trauma Social History Tobacco Use Types Packs/Day [...] this encounter Progress Notes * Silvia Zapata, HARBOR PILOT - 03/14/2021 10:30 AM EDT Name: Narcisa [...] going on his way to appointments at [facility]. Description of events leading up to injury includes: ??Patient was outside [facility], there for a urinary retention and PCP appointment, was sitting on a bench. His went to get the car and heard a thud. She turned around and saw him on the cement unresponsive, reportedly for two minutes. Patient was seen by [facility] and brought to Emergency Room and subsequently transferred to [facility]. He is accompanied by his today; doing [...] and will see urologist on 03/21 in [place] to have catheter removed. Pt treatedfor UTI [...] ??? COLONOSCOPY 2012 date is approximate. at [facility] Dr Ko ??? PROSTATE [...] on file Occupational History ??? 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 Occupation: [employer] Comment: [employer] Tobacco Use ??? Smoking status: Current Every [...] Unchanged left subdural hygroma with similar fashion kgdy-lj-xiqjq midline shift compared to prior CT. 2. [...] his neurologist Plan: Follow up CT in [place] in 6 weeks with TOV ( OR return to if he has another appointment at ) Silvia Zapata APRN documented in this encounter Plan of Treatment Upcoming Encounters Date Type Department Care Team (Late st Contact Info) Description 11/09/2024 10:30 AM EDT Office Visit Radiation Oncology at [address] [phone] Taya De La Vega PA [facility] DR [place] [address] 11/13/2024 2:00 PM EDT Office Visit Hematology/Oncology at [address] [phone] Kirt Kennedy MD [facility] DR [place] [address] Alem Lazaro APRN [address] [place] [address] DR HEMATOLOGY AND ONCOLOGY [place], [place] [address] documented as of this encounter Visit Diagnoses Diagnosis Trauma Injury, other and unspecified, unspecified site documented in this encounter Care Teams Commercial Stripper Relationship Specialty Start Date End Date Alfredo Montoya DO [address] [place] [address] PCP - General Internal Medicine 12/04/19 04/27/23 documented as of this encounter
--- OUTSIDE RECORDS SUMMARY | 2024-07-07 22:33 | XMS_ITS | Encounter Summary ---
Author Organization [facility] Address [facility] [place] [address] Care Team Providers Care Chinchilla Machine Operator Name Role Phone Alfredo Montoya DO Primary Care Provider [phone] Reason for Referral * Diagnostic Test (Routine) - Closed Specialty Diagnoses / Procedures Referred By Contac t Referred To Contact Radiology Diagnoses Intracranial bleed Procedures CT Head wo Contrast (Generic) Linnea Muhammad PA [facility] [place] [place] [address] [facility] [place] [address] Referral ID Status Reason Start Date Expiration Date V isits Requested Visits Authorized [id number] Closed Specialty Service Requested 09/18/2020 03/17/2021 1 1 Reason for Visit * Diagnostic Test (Routine) - Closed Specialty Diagnoses / Procedures Referred By Contac t Referred To Contact Radiology Diagnoses Intracranial bleed Procedures CT Head wo Contrast (Generic) Linnea Muhammad PA [facility] [place] [place] [address] [facility] [place] [address] Referral ID Status Reason Start Date Expiration Date V isits Requested Visits Authorized [id number] Closed Specialty Service Requested 09/18/2020 03/17/2021 1 1 Encounter Details Date Type Department Care Team (Latest Contact Info) Description 03/14/2021 9:04 AM EDT - 03/14/2021 11:59 PM EDT Hospital Encounter CT Scan at [facility] [place] [address] Damian Vazquez MD [facility] [place] [address] Intracranial bleed Discharge Disposition: Home Social History [...] EDT Office Visit Radiation Oncology at [address] [phone] Taya De La Vega PA [facility] DR HEMATOLOGY [place] [address] 11/13/2024 2:00 PM EDT Office Visit Hematology/Oncology at [address] [phone] Kirt Kennedy MD [facility] DR HEMATOLOGY [place] [address] Alem Lazaro APRN [address] [place] [address] DR HEMATOLOGY AND ONCOLOGY [place], [place] [phone] documented as of this encounter Procedures Procedure [...] Unchanged left subdural hygroma with similar fashion ilrt-gc-tykjl midline shift compared to prior CT. 2. [...] who have questions please contact the health medicare coordinator that requested your imaging first. ? Narrative [...] Unchanged left subdural hygroma with similar fashion qgnq-xq-xgeleqhasmnq shift compared to prior CT. 2. Expected [...] patients who have questions please contactthe health medicare coordinator that requested your imaging first. Damian Vazquez MD IMG CT ORDERABLES documented in this encounter Visit Diagnoses Diagnosis Intracranial bleed Unspecified intracranial hemorrhage documented in this encounter Care Teams Chinchilla Machine Operator Relationship Specialty Start Date End Date Alfredo Montoya DO [address] [place] [address] PCP - General Internal Medicine 12/04/19 04/27/23 documented as of this encounter
--- OUTSIDE RECORDS SUMMARY | 2024-07-07 22:33 | XMS_ITS | Encounter Summary ---
Author Organization [facility] [address] Care Team Providers Care Lead Press Operator Name Role Phone Alfredo Montoya DO Primary Care Provider [phone] Reason for Referral * Physical Therapy (Routine) - Closed Specialty Diagnoses / Procedures Referred By Contac t Referred To Contact Physical Therapy Diagnoses Gait disorder Jasper Astudillo MD [facility] [place] [address] Referral ID Status Reason Start Date Expiration Date V isits Requested Visits Authorized [id number] Closed Evaluate and Treat Non PCP 05/01/2021 10/28/2021 12 12 Reason for Visit * Consultation (Routine) - Closed Specialty Diagnoses / Procedures Referred By Contaryan espitia Referred To Contact Neurology Diagnoses Syncope and collapse hosp ck - head trauma Marisol Hendrix P, CHANGE MANAGEMENT EXPERT [address] [place] [address] [facility] Neurology [address] [place] [address] Referral ID Status Reason Start Date Expiration Date Visits Re quested Visits Authorized [id number] Closed 03/28/2021 03/28/2022 1 1 Encounter Details Date Type Department Care Team (Late st Contact Info) Description 05/01/2021 2:00 PM EDT [place] [address] Katharine Mohamud DO [facility] [place] [address] Jasper Astudillo MD [facility] [place] [address] Gait disorder Social History Tobacco Use Types [...] providers found Primary Provider: Alfredo Montoya DO [phone] Patient ID Narcisa is a 75 yo [...] BID. He does [place] [facility] [place] Dr. Villa as well as [facility] neurology - Dr.Sergi Post who believed he had a left sided stroke in 2019 with residual right sided deficits, continued him on vimpat at increased dose after admission to [facility] in December 2020 for breakthrough seizures. Semiology [...] ??? COLONOSCOPY 2012 date is approximate. at [facility] Dr Ko ??? PROSTATE BIOPSY 11/23/2019 Family History Problem Relation Age of Onset ??? Prostate Cancer Father Social History Socioeconomic History ??? Marital status: Spouse name: Not on file ??? Number of children: 3 ??? Years of education: Not on file ??? Highest education level: Not on file Occupational History ??? 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 Occupation: [email or web address] Comment: [place] Tobacco Use ??? Smoking status: [...] and Lipids No results for input(s): HA1C, ZAJUH2C, JDB9LDUJ, LABGLUC2, MICROALBUR in the last 168 hours. No results for input(s): CHLPL, HDL, TRIG, LDLDIRECT in the last 168 hours. Additional Testing No results for input(s): PHART, HLI8LVX, PO2ART, JGQ2RDD in the last 168 hours. No results [...] over monitored duration 4-week Holter (10/25/20) through [facility] ??Conclusions::/Recommendations ?1. The patient wore the monitor [...] as documented. Katharine Mohamud D.O. Neurology Department [facility] [email or web address] documented in this encounter Miscellaneous Notes * Addendum Note - Katharine Mohamud DO - 05/01/2021 2:00 PM EDTAddended by: KATHARINE MOHAMUD on: 05/19/2021 06:30 PM Modules accepted: Level of Service documented in this encounter Plan of Treatment Upcoming Encounters Date Type Department Care Team (Late st [facility]) Description 11/09/2024 10:30 AM EDT Office Visit Radiation Oncology at [address] [phone] Taya De La Vega PA [facility] [place] [address] 11/13/2024 2:00 PM EDT Office Visit Hematology/Oncology at [address] [phone] Kirt Kennedy MD [facility] [place] [address] Alem Lazaro APRN [address] [place] [address] DR HEMATOLOGY AND ONCOLOGY [place], [place] [address] Scheduled Referrals Name Type Priority Associated Diagnoses Orde r Schedule Referral to Physical Therapy Outpatient Referral Routine Gait disorder Ordered: 05/01/2021 documented as of this encounter Visit Diagnoses Diagnosis Gait disorder Abnormality of gait documented in this encounter Care Teams Lead Press Operator Relationship Specialty Start Date End Date Alfredo Montoya DO [address] [place] [address] PCP - General Internal Medicine 12/04/19 04/27/23 documented as of this encounter
--- OUTSIDE RECORDS SUMMARY | 2024-07-07 22:33 | XMS_ITS | Encounter Summary ---
Author Organization [facility] Address [facility] [place] [address] Care Team Providers Care General Dentist Name Role Phone Alfredo Montoya DO Primary Care Provider [phone] Encounter Details Date Type Department Care Team (Late st Contact Info) Description 10/23/2021 10:15 AM EST Office Visit Radiation Oncology at [address] [phone] Jen Eugene APRN [facility] [place] [address] Malignant neoplasm of prostate (Primary Dx) Social [...] this encounter Progress Notes * Jen Eugene, PHYSICIAN INDUSTRIAL - 10/23/2021 10:15 AM ESTSummary: 76 year old M dx Unfavorable Intermediate-Risk Prostate Cancer. Compl xrt 04/26/20 [facility] [place] [address] Phone: RADIATION ONCOLOGY FOLLOW UP NOTE Date [...] Prior consultations / recommendations: Dr Thomas - [facility] - 12/01/19 - options of , RP, RT reviewed. Patient interested in learning more about RT. Referral placed.? PSA History:?? 11/03/19 - 12.9 ?? Pathology Results / Location:?? TRUS Bx 11/23/19 ([facility]) - ?Gl 4+3 x 1 - [...] June pt and describe urosepsis admission to [facility]. Since recovering he has been successful in keeping the catheter out and voids on his own. He still does wake up at [facility] to void x 3 and is still taking one tamsulosin. He is also on prazosin which is prescribed by [place]. I am uncertain if that is for [...] ??? COLONOSCOPY 2011 date is approximate. at [facility] Dr Ko ??? PROSTATE BIOPSY 11/23/2019 [...] ??? COLONOSCOPY 2011 date is approximate. at [facility] Dr Ko ??? PROSTATE BIOPSY 11/23/2019 [...] today's visit: General:Related how he went to [facility] for CT scan and they did not use contrast so had to cancel his appt and reschedule. He gets followed at [facility] with Oncology for f/u post tx for follicular lymphoma so he and will call [place] to get appt for CT and onc [...] catheter now and able to void. Discussed Kam Sexual health:endorses more function than he may [...] head on pavement. 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 Follows with [facility] neurology no longer on ASA Mood: Usually [...] and cranial bleed, urosepsis and multiple other [place] managed health issues that reflects keep setting him back. His motivation is low. Had urosepsis in Jun 2021 and in-pt tx at [facility]. Cath removed and he is [...] bleed He was treated for this in [place]. He has a neurologist locally at [facility]. No new focal deficits but memory [...] the radiation therapy/prostate cancer Jen Eugene MSN, PHYSICIAN INDUSTRIAL, WIRELINE FIELD OPERATOR-C Nurse Practitioner Radiation Oncology documented in this encounter Plan of Treatment Upcoming Encounters Date Type Department Care Team (Late st Contact Info) Description 11/09/2024 10:30 AM EDT Office Visit Radiation Oncology at [address] [phone] Taya De La Vega PA [facility] HEMATOLOGY [place] [address] 11/13/2024 2:00 PM EDT Office Visit Hematology/Oncology at [address] [phone] Kirt Kennedy MD [facility] HEMATOLOGY [place] [address] Alem Lazaro APRN [address] [place] [address] DR HEMATOLOGY [place] [address] documented as of this encounter Visit Diagnoses Diagnosis Malignant neoplasm of prostate- Primary documented in this encounter Care Teams General Dentist Relationship Specialty Start Date End Date Alfredo Montoya DO [address] [place] [phone] PCP - General Internal Medicine 12/04/19 04/27/23 documented as of this encounter
--- OUTSIDE RECORDS SUMMARY | 2024-07-07 22:33 | XMS_ITS | Encounter Summary ---
Author Organization [facility] [place] [address] Care Team Providers Care Superintendent Logging Name Role Phone Alfredo Montoya DO Primary Care Provider [phone] Encounter Details Date Type Department Care Team (Latest Contact Info) Description 04/23/2022 11:00 AM EDT TH Visit (TeleHealth) Radiation Oncology at [address] [phone] Jen Eugene, SERVICE MANAGER [facility] [place] [address] Malignant neoplasm of prostate (Primary Dx) Social [...] Unfavorable Intermediate-Risk Prostate Cancer. Compl xrt 04/26/20 [facility] [place] [address] Phone: RADIATION ONCOLOGY FOLLOW UP NOTE Date of visit: 04/22/2022 Patient Narcisa Eduardo 1945 PCP: Alfredo Montoya DO Urologist: Charleen Torres MD//also went to [facility] Urology Radiation oncologist: Dr Que Evans [...] Prior consultations / recommendations: Dr Thomas - [facility] - 12/01/19 - options of , RP, RT reviewed. Patient interested in learning more about RT. Referral placed.? PSA History:?? 11/03/19 - 12.9 ?? Pathology Results / Location:?? TRUS Bx 11/23/19 ([facility]) - ?Gl 4+3 x 1 - [...] November pt and describe urosepsis admission to [facility]. Since recovering he has been successful in keeping the catheter out and voids on his own. He still does wake up at [facility] to void x 2-3x and [...] after that he will sleep through the [facility]. Narcisa agrees with this assessment. No hematuria, has had chronic UTIs. Does not hydrate well per . Unfortunately, he has had episodes of urosepsis and these have led to seizure activity and need for ambulance ride to local hospital. This ends up being to [facility]. They would favor going to [facility] but the ambulance must deliver himto nearest [...] ??? COLONOSCOPY 2011 date is approximate. at [facility] Dr Ko ??? PROSTATE BIOPSY [...] ??? COLONOSCOPY 2011 date is approximate. at [facility] Dr Ko ??? PROSTATE BIOPSY [...] head on pavement. 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 Follows with [facility] neurology no longer on ASA. Mood: Usually [...] 12.9 ? Assessment: Mr Narcisa Eduardo is a??76 y.o.M?diagnosed with an unfavorable [...] was in November 2021 in-pt tx at [facility]. Cath removed and he is able [...] bleed He was treated for this in [place]. He has a neurologist locally at [facility]. No new focal deficits but memory can sometimes be an issue. His next prostate cancer followup will be in six months with PSA and testosterone prior to visit. He and live near [facility] and are happy to come for f2f. [...] the radiation therapy/prostate cancer Jen Eugene MSN, SERVICE MANAGER, RESTAURANT ASSISTANT-C Nurse Practitioner Radiation Oncology documented in this encounter Plan of Treatment Upcoming Encounters Date Type Department Care Team (Late st Contact Info) Description 11/09/2024 10:30 AM EDT Office Visit Radiation Oncology at [address] [phone] Taya De La Vega PA [facility] DR [place] [address] 11/13/2024 2:00 PM EDT Office Visit Hematology/Oncology at [address] [phone] Kirt Kennedy MD [facility] DR [place] [address] Alem Lazaro APRN [address] [place] [address] DR HEMATOLOGY AND ONCOLOGY [place], [place] [phone] documented as of this encounter Visit Diagnoses Diagnosis Malignant neoplasm of prostate- Primary documented in this encounter Care Teams Superintendent Logging Relationship Specialty Start Date End Date Alfredo Montoya DO [address] [place] [address] PCP - General Internal Medicine 12/04/19 04/27/23 documented as of this encounter
--- OUTSIDE RECORDS SUMMARY | 2024-07-07 22:33 | XMS_ITS | Encounter Summary ---
Author Organization [facility] Address [facility] [place] [address] Care Team Providers Care Custom Feed Mill Operator Name Role Phone Alfredo Montoya DO Primary Care Provider [phone] Reason for Visit * Reason Onset Date Comments Other 03/17/2021 Encounter Details Date Type Department Care Team (Late st Contact Info) Description 03/17/2021 [place] [phone] Silvia Zapata, [facility] [place] [address] Other Social History Tobacco Use Types Packs/Day [...] and fax report to us. Faxing [facility] push request for images for [facility] to review. * Telephone Encounter - Jesi Magallanes - 03/28/2021 12:00 PM EDT Roxy Garcia RN at [facility] is calling to speak about the patients CT. Roxy is asking if the CT is to be done with or without contrast. Please contact Melvina to discuss further. * Telephone Encounter - Latrice Redmond - 03/17/2021 9:30 AM EDT Spoke with pt and updated safety questions. Pt advised he would like imaging done at [facility] with f/u TOV with [facility]. Imaging order already External.Needs updated authorization from [facility]. Once [facility] is scheduled, call pt to book f/u TOV with [facility]. * Telephone Encounter - Sangeeta Pino - 03/17/2021 8:02 AM EDT Patient needs f/u appointment(s): With [facility] on/around 04/25/21 6 weeks OV or TOV, s/p L Hygroma, parafalcine SDH, tSAH, CT or [facility] Prior * Telephone Encounter - Sangeeta Pino - 03/17/2021 8:02 AM EDT Narcisa Eduardo - 03/14/21 Silvia Zapata APRN Sent: Hua March 15, 2021 ??2:47 PM To: P [facility] Neurosurgery Backroom Associate ?? Follow-up and Dispositions Check-out Note: Follow up head CT 6 weeks - may either be at with in person visit ??or in [place] with TOV Routing History documented in this encounter Plan of Treatment Upcoming Encounters Date Type Department Care Team (Late st Contact Info) Description 11/09/2024 10:30 AM EDT Office Visit Radiation Oncology at [address] [phone] Taya De La Vega PA [facility] DR [place] [address] 11/13/2024 2:00 PM EDT Office Visit Hematology/Oncology at [address] [phone] Kirt Kennedy MD [facility] DR [place] [address] Alem Lazaro APRN [address] [place] [address] DR HEMATOLOGY AND ONCOLOGY [place], [place] [phone] documented as of this encounter Visit Diagnoses Not on filedocumented in this encounter Care Teams Custom Feed Mill Operator Relationship Specialty Start Date End Date Alfredo Montoya DO [address] [place] [address] PCP - General Internal Medicine 12/04/19 04/27/23 documented as of this encounter
--- OUTSIDE RECORDS SUMMARY | 2024-07-07 22:33 | XMS_ITS | Encounter Summary ---
Author Organization [facility] Address [facility] [place] [address] Care Team Providers Care Ice Seller Name Role Phone Alfredo Montoya DO Primary Care Provider [phone] Encounter Details Date Type Department Care Team (Late st Contact Info) Description 11/16/2022 3:00 PM EDT Office Visit Hematology/Oncology at [address] [phone] Kirt Kennedy MD [facility] [place] [address] Alem Lazaro APRN [address] [place] [address] DR [place] [address] Follicular lymphoma, unspecified grade, unspecified [...] original note were not included. [place] [address] [phone] Narcisa Eduardo is being seen for the evaluation of follicular lymphoma. Assessment & Plan: Narcisa Eduardo is a 77 y.o. male patient with a PMH of an abdominal aortic aneurysm, thoracic aortic aneurysm, hypertension, prior alcohol abuse, tobacco abuse, a stroke in early 2019 and follicular lymphoma who completed EBRT for localized prostate cancer 04/2020 who wishes to followup here in [facility] for his lymphoma rather than at the MD given the proximity to his home. He [...] Kirt Kennedy MD, MS 11/16/2022 Thoracic Oncology [facility] CC: Alfredo Montoya, Jen Jabier FUEL CELL BUILDER HPI/Interval History/Subjective: Last seen November 2021 Accompanied [...] but can't do it any more. service: [employer]. [place] Era. Had Agent [place] Exposure. 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 Treated at the MD by Dr. Martha Castañeda - PET-CT 11/26/15 [...] (he opted to not receive ADT) at [facility] with Dr. Evans 02/26-04/26/20 97.2 Gy in 44 fractions PMH: 1. AAA - Abdominal aortic aneurysm 2. Thoracic aortic aneurysm without rupture 3. Follicular non-Hodgkin lymphoma, small cleaved cell 4. Tobacco dependence 5. Alcohol dependence 6. Hypertension 7. Family history of prostate cancer 8. Family history of malignant neoplasm of breast 9. Personal History of Exposure to Agent [place] View : No data to display. Patient [...] cell count normal at 6.0, hemoglobin 14.7 [id number] absolute neutrophil count 4.6 absolute lymphocyte count [...] left inguinal node 03/18/15; taken from the [facility] pathology report - Follicular lymphoma NOTE: Sections [...] EDT Office Visit Radiation Oncology at [address] [phone] Taya De La Vega PA [facility] [place] [address] 11/13/2024 2:00 PM EDT Office Visit Hematology/Oncology at [address] [phone] Kirt Kennedy MD [facility] [place] [address] Alem Lazaro APRN [address] [place] [address] DR HEMATOLOGY AND ONCOLOGY [place], [place] [phone] Scheduled Orders Name Type Priority Associated Diagnoses [...] prostate documented in this encounter Care Teams Ice Seller Relationship Specialty Start Date End Date Alfredo Montoya DO [address] [place] [address] PCP - General Internal Medicine 12/04/19 04/27/23 documented as of this encounter
--- OUTSIDE RECORDS SUMMARY | 2024-07-07 22:33 | XMS_ITS | Encounter Summary ---
Author Organization [facility] Address [facility] [place] [address] Care Team Providers Care Solar Electric Practitioner Name Role Phone Alfredo Montoya DO Primary Care Provider Encounter Details Date Type Department Care Team (Late st Contact Info) Description 04/02/2021 Ancillary Procedure Radiology Library at [facility] [place] [phone] Silvia Zapata APRN [facility] [place] [address] Social History Tobacco Use Types Packs/Day Years [...] AM EDT Office Visit Radiation Oncology at [address] [phone] Taya De La Vega PA [facility] HEMATOLOGY [place] [address] 11/13/2024 2:00 PM EDT Office Visit Hematology/Oncology at [address] [phone] Kirt Kennedy MD [facility] DR HEMATOLOGY [place] [address] Alem Lazaro APRN [address] [place] [address] DR HEMATOLOGY [place] [address] documented as of this encounter Procedures Procedure Name Priority Date/Time Associated Diagnosis Comments FILM LIBRARY STORAGE ONLY CT HEAD Routine 04/02/2021 12:00 AM EDT documented in this encounter Results * Film Library- Storage Only CT Head (04/02/2021 12:00 AM EDT) Narrative [facility] - 05/08/2021 9:07 PM EDT This exam is auto-finalizing. It's purpose is for storage only. Silvia Zapata APRN IMG FILM LIBRARY ORDERABLES Performing Organization Address City/State/[facility] Co de Phone Number [place], [place] documented in this encounter Visit Diagnoses Not on filedocumented in this encounter Care Teams Solar Electric Practitioner Relationship Specialty Start Date End Date Alfredo Montoya DO [address] [place] [address] PCP - General Internal Medicine 12/04/19 04/27/23 documented as of this encounter
--- OUTSIDE RECORDS SUMMARY | 2024-07-07 22:33 | XMS_ITS | Encounter Summary ---
Author Organization [facility] Address [facility] [place] [address] Care Team Providers Care Career Guidance Counselor Name Role Phone Alfredo Montoya DO Primary Care Provider [phone] Encounter Details Date Type Department Care Team [...] EDT Office Visit Radiation Oncology at [address] [phone] Taya De La Vega PA [facility] DR HEMATOLOGY [place] [address] 11/13/2024 2:00 PM EDT Office Visit Hematology/Oncology at [address] [phone] Kirt Kennedy MD [facility] DR HEMATOLOGY [place] [address] Alem Lazaro APRN [address] [place] [address] DR HEMATOLOGY [place] [address] documented as of this encounter Visit Diagnoses Not on filedocumented in this encounter Care Teams Career Guidance Counselor Relationship Specialty Start Date End Date Alfredo Montoya DO [address] [place] [address] PCP - General Internal Medicine 12/04/19 04/27/23 documented as of this encounter
--- OUTSIDE RECORDS SUMMARY | 2024-07-07 22:34 | XMS_ITS | Encounter Summary ---
Author Organization [facility] Address [facility] [place] [address] Care Team Providers Care Precast Concrete Ironworker Name Role Phone Alfredo Montoya DO Primary Care Provider [phone] Encounter Details Date Type Department Care Team (Late st Contact Info) Description 02/25/2021 Telephone [place] [address] Alem Lazar MD [facility] [place] [address] Social History Tobacco Use Types Packs/Day Years [...] February 23, 2021 ??2:21 AM To: P [facility] Neuro[facility] Configuration Management Consultant ?? Message Hello and good day! Please [...] EDT Office Visit Radiation Oncology at [address] [phone] Taya De La Vega PA [facility] HEMATOLOGY [place] [address] 11/13/2024 2:00 PM EDT Office Visit Hematology/Oncology at [address] [phone] Kirt Kennedy MD [facility] DR HEMATOLOGY [place] [address] Alem Lazaro APRN [address] [place] [address] DR [place] [address] documented as of this encounter Visit Diagnoses Not on filedocumented in this encounter Care Teams Precast Concrete Ironworker Relationship Specialty Start Date End Date Alfredo Montoya DO [address] [place] [address] PCP - General Internal Medicine 12/04/19 04/27/23 documented as of this encounter
--- OUTSIDE RECORDS SUMMARY | 2024-07-07 22:34 | XMS_ITS | Encounter Summary ---
Author Organization [facility] [place] [address] Care Team Providers Care Magazine Grinder Loader Name Role Phone Alfredo Montoya DO Primary Care Provider [phone] Encounter Details Date Type Department Care Team (Latest Contact Info) Description 04/16/2020 10:30 AM EDT Clinical Support Hematology/Oncology at [address] [phone] Malignant neoplasm of prostate Social History Tobacco Use Types Packs/Day Years Used Date Smoking Tobacco: Every Day Cigarettes 1 60.9 Started: 1964 Alcohol Use Standard Drinks/Week Comments [...] Johnson RD - 04/16/2020 10:30 AM EDT [facility] Dietitian Follow Up Seen By: Kristyn Johnson [...] Am: first meal around 10 or 11, martiniquais muffin with egg on one side and [...] EDT Office Visit Radiation Oncology at [address] [phone] Taya De La Vega PA [facility] DR HEMATOLOGY [place] [address] 11/13/2024 2:00 PM EDT Office Visit Hematology/Oncology at [address] [phone] Kirt Kennedy MD [facility] DR HEMATOLOGY [place] [address] Alem Lazaro APRN [address] [place] [address] DR HEMATOLOGY AND ONCOLOGY [place], [place] [phone] documented as of this encounter Visit Diagnoses Diagnosis Malignant neoplasm of prostate documented in this encounter Care Teams Magazine Grinder Loader Relationship Specialty Start Date End Date Alfredo Montoya DO [address] [place] [address] PCP - General Internal Medicine 12/04/19 04/27/23 documented as of this encounter
--- OUTSIDE RECORDS SUMMARY | 2024-07-07 22:34 | XMS_ITS | Encounter Summary ---
Author Organization [facility] [place] [address] Care Team Providers Care Condominium Property Manager Name Role Phone Alfredo Montoya DO Primary Care Provider [phone] Encounter Details Date Type Department Care Team (Late st Contact Info) Description 03/21/2020 12:00 PM EDT Office Visit Radiation Oncology at [address] [phone] Que Evans MD [address] [place] [address] [place] [address] Malignant neoplasm of prostate Social [...] 03/21/20 Que Evans MD, MS Radiation Oncology [facility] [phone] (paging biscuit machine operator) Pager #[phone] PATIENT IDENTIFICATION Name Narcisa Eduardo Date of 1945 PCP Alfredo Montoya DO Referring MD (if different) Dr. Martha Montoya ([place]) 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, Gl [...] score today is 0/10. MEDICATIONS Medications 03/14/20 3349 Medication Sig Taking? ergocalciferol, vitamin D2, (VITAMIN [...] EDT Office Visit Radiation Oncology at [address] [phone] Taya De La Vega PA [facility] HEMATOLOGY [place] [address] 11/13/2024 2:00 PM EDT Office Visit Hematology/Oncology at [address] [phone] Kirt Kennedy MD [facility] HEMATOLOGY [place] [address] Alem Lazaro APRN [address] [place] [address] DR [place] [address] documented as of this encounter Visit Diagnoses Diagnosis Malignant neoplasm of prostate documented in this encounter Care Teams Condominium Property Manager Relationship Specialty Start Date End Date Alfredo Montoya DO [address] [place] [address] PCP - General Internal Medicine 12/04/19 04/27/23 documented as of this encounter
--- OUTSIDE RECORDS SUMMARY | 2024-07-07 22:34 | XMS_ITS | Encounter Summary ---
Author Organization [facility] Address [facility] [place] [address] Care Team Providers Care Roadmaster Name Role Phone Alfredo Montoya DO Primary Care Provider [phone] Reason for Visit * - Closed Specialty Diagnoses / Procedures Referred By Contaryan t Referred To Contact Procedures Film Library- Storage Only DX Chest Alfredo Montoya DO [address] [place] [address] Referral ID Status Reason Start Date Expiration Date Visits Re quested Visits Authorized [id number] Closed 12/08/2020 12/08/2021 1 1 Encounter Details Date Type Department Care Team (Late st Contact Info) Description 12/03/2020 12:05 AM EDT Ancillary Procedure Radiology Library at [facility] [place] [address] Alfredo Montoya DO [address] [place] [address] Social History Tobacco Use Types [...] EDT Office Visit Radiation Oncology at [address] [phone] Taya De La Vega PA [facility] DR HEMATOLOGY AND [place] [address] 11/13/2024 2:00 PM EDT Office Visit Hematology/Oncology at [address] [phone] Kirt Kennedy MD [facility] DR HEMATOLOGY AND [place] [address] Alem Lazaro APRN [address] [place] [address] DR HEMATOLOGY AND ONCOLOGY [place], [place] [id number] documented as of this encounter Procedures Procedure Name Priority Date/Time Associated Diagnosis Comments FILM LIBRARY STORAGE ONLY DX CHEST Routine 12/03/2020 12:05 AM EDT documented in this encounter Results * Film Library- Storage Only DX Chest (12/03/2020 12:05 AM EDT) Narrative [facility] - 12/08/2020 12:26 PM EDT This exam is auto-finalizing. It's purpose is for storage only. Alfredo Montoya DO IMG FILM LIBRARY OR DERABLES Performing Organization Address City/State/[facility] Co de Phone Number [place], [place] documented in this encounter Visit Diagnoses Not on filedocumented in this encounter Care Teams Roadmaster Relationship Specialty Start Date End Date Alfredo Montoya DO [address] [place] [id number] PCP - General Internal Medicine 12/04/19 04/27/23 documented as of this encounter
--- OUTSIDE RECORDS SUMMARY | 2024-07-07 22:34 | XMS_ITS | Encounter Summary ---
Author Organization [facility] [place] [address] Care Team Providers Care Sensor Operator Name Role Phone Alfredo Montoya DO Primary Care Provider [phone] Encounter Details Date Type Department Care Team (Latest Contact Info) Description 04/22/2020 10:00 AM EDT Clinical Support Hematology/Oncology at [address] [phone] Malignant neoplasm [...] Johnson RD - 04/22/2020 10:00 AM EDT [facility] Dietitian Follow Up Seen By: [...] Am: first meal around 10 or 11, arabic muffin with egg on one side and [...] EDT Office Visit Radiation Oncology at [address] [phone] Taya De La Vega PA [facility] [place] [address] 11/13/2024 2:00 PM EDT Office Visit Hematology/Oncology at [address] [phone] Kirt Kennedy MD [facility] DR [place] [address] Aelm Lazaro APRN [address] [place] [address] DR HEMATOLOGY AND ONCOLOGY [place], [place] [address] documented as of this encounter Visit Diagnoses Diagnosis Malignant neoplasm of prostate documented in this encounter Care Teams Sensor Operator Relationship Specialty Start Date End Date Alfredo Montoya DO [address] [place] [id number] PCP - General Internal Medicine 12/04/19 04/27/23 documented as of this encounter
--- OUTSIDE RECORDS SUMMARY | 2024-07-07 22:34 | XMS_ITS | Encounter Summary ---
Author Organization [facility] Address [facility] [place] [address] Care Team Providers Care Access Nurse Name Role Phone Alfredo Montoya DO Primary Care Provider [phone] Encounter Details Date Type Department Care Team (Late st Contact Info) Description 12/30/2020 3:00 PM EDT Office Visit Hematology/Oncology at [address] [phone] Kirt Kennedy MD [facility] DR HEMATOLOGY [place] [address] Martha Card, RN Malignant neoplasm of prostate; [...] encounter Progress Notes * Kyaw Martha Jeremy, [facility] [place] - 12/30/2020 3:00 PM EDT HPI/Interval History/Subjective: Narcisa Eduardo is a 74 y.o. male patient with a PMH of an abdominal aortic aneurysm, thoracic aortic aneurysm, hypertension, prior alcohol abuse, tobacco abuse, A stroke in early 2019 and follicular lymphoma who recently completed EBRT for localized prostate cancer who wishes to followup here in [facility] for his lymphoma rather than [place] the [place] given the proximity to his home. The [...] but can't do it any more. service: [employer]. [place]. Had Agent [place] Exposure. He is service connected for both [...] (he opted to not receive ADT) at [facility] with Dr. Evans 02/26-04/26/20 97.2 Gy in 44 fractions PMH: 1. AAA - Abdominal aortic aneurysm 2. Thoracic aortic aneurysm without rupture 3. Follicular non-Hodgkin lymphoma, small cleaved cell 4. Tobacco dependence 5. Alcohol dependence 6. Hypertension 7. Family history of prostate cancer 8. Family history of malignant neoplasm of breast 9. Personal History of Exposure to Agent [place] Patient Active Problem List Diagnosis Date Noted [...] cell count normal at 6.0, hemoglobin 14.7 [id number] absolute neutrophil count 4.6 absolute lymphocyte count [...] cancer who wishes to followup here in [facility] for his lymphoma rather than [...] EDT Office Visit Radiation Oncology at [address] [phone] Taya De La Vega PA [facility] DR HEMATOLOGY [place] [address] 11/13/2024 2:00 PM EDT Office Visit Hematology/Oncology at [address] [phone] Kirt Kennedy MD [facility] DR HEMATOLOGY [place] [address] Alem Lazaro APRN [address] [place] [address] DR HEMATOLOGY AND ONCOLOGY [place], [place] [id number] documented as of this encounter Visit Diagnoses Diagnosis Malignant neoplasm of prostate Follicular lymphoma, unspecified grade, unspecified body region documented in this encounter Care Teams Access Nurse Relationship Specialty Start Date End Date Alfredo Montoya DO [address] [place], [place] [phone] PCP - General Internal Medicine 12/04/19 04/27/23 documented as of this encounter
--- OUTSIDE RECORDS SUMMARY | 2024-07-07 22:34 | XMS_ITS | Encounter Summary ---
Author Organization [facility] Address [facility] [place] [address] Care Team Providers Care Journeyman Carpenter Name Role Phone Alfredo Montoya DO Primary Care Provider [phone] Encounter Details Date Type Department Care Team (Late Contact Info) Description 02/18/2021 5:05 PM EDT Ancillary Procedure Radiology Library at [facility] [place] [phone] Social History Tobacco Use Types Packs/Day Years [...] EDT Office Visit Radiation Oncology at [address] [phone] Taya De La Vega PA [facility] HEMATOLOGY AND ONCOLOGY [place] [address] 11/13/2024 2:00 PM EDT Office Visit Hematology/Oncology at [address] [phone] Kirt Kennedy MD [facility] HEMATOLOGY AND ONCOLOGY [place] [address] Alem Lazaro APRN [address] [place] [address] DR HEMATOLOGY [place] [address] documented as of this encounter Procedures Procedure Name Priority Date/Time Associated Diagnosis Comments FILM LIBRARY STORAGE ONLY DX CHEST STAT 02/18/2021 4:56 PM EDT documented in this encounter Results * Film Library- Storage Only DX Chest (02/18/2021 4:56 PM EDT) Narrative [facility] - 02/18/2021 4:56 PM EDT This exam is auto-finalizing. It's purpose is for storage only. Eduard Luu MD IMG FILM LIBRARY ORD ERABLES [place], [place] documented in this encounter Visit Diagnoses Not on filedocumented in this encounter Care Teams Journeyman Carpenter Relationship Specialty Start Date End Date Alfredo Montoya DO [address] [place] [address] PCP - General Internal Medicine 12/04/19 04/27/23 documented as of this encounter
--- OUTSIDE RECORDS SUMMARY | 2024-07-07 22:34 | XMS_ITS | Encounter Summary ---
Author Organization [facility] Address [facility] [place] [address] Care Team Providers Care Warehouse Hand Name Role Phone Alfredo Montoya DO Primary Care Provider [phone] Encounter Details Date Type Department Care Team (Late Contact Info) Description 02/18/2021 5:10 PM EDT Ancillary Procedure Radiology Library at [facility] [place] [phone] Social History Tobacco Use Types Packs/Day Years [...] EDT Office Visit Radiation Oncology at [address] [phone] Taya De La Vega PA [facility] HEMATOLOGY AND ONCOLOGY [place] [address] 11/13/2024 2:00 PM EDT Office Visit Hematology/Oncology at [address] [phone] Kirt Kennedy MD [facility] HEMATOLOGY AND ONCOLOGY [place] [address] Alem Lazaro APRN [address] [place] [address] DR [place]Y [place] [address] documented as of this encounter Procedures Procedure Name Priority Date/Time Associated Diagnosis Comments FILM LIBRARY STORAGE ONLY DX UPPER EXTREMITY STAT 02/18/2021 4:57 PM EDT documented in this encounter Results * Film Library- Storage Only DX Upper Extremity (02/18/2021 4:57 PM EDT) Narrative [facility] - 02/18/2021 4:57 PM EDT This exam is auto-finalizing. It's purpose is for storage only. Eduard Luu MD IMG FILM LIBRARY ORD ERABLES Performing Organization Address City/State/[facility] Co de Phone Number [place], [place] documented in this encounter Visit Diagnoses Not on filedocumented in this encounter Care Teams Warehouse Hand Relationship Specialty Start Date End Date Alfredo Montoya DO [address] [place] [id number] PCP - General Internal Medicine 12/04/19 04/27/23 documented as of this encounter
--- OUTSIDE RECORDS SUMMARY | 2024-07-07 22:34 | XMS_ITS | Encounter Summary ---
Author Organization [facility] Address [facility] [place] [address] Care Team Providers Care Hopper Attendant Name Role Phone Alfredo Montoya DO Primary Care Provider [phone] Reason for Referral * Diagnostic Test (Routine) - Closed Specialty Diagnoses / Procedures Referred By Contac t Referred To Contact Radiology Diagnoses Intracranial bleed Procedures CT Head wo Contrast (Generic) Linnea Muhammad PA [facility] [place] [address] [facility] [place] [address] Referral ID Status Reason Start Date Expiration Date V isits Requested Visits Authorized [id number] Closed Specialty Service Requested 09/18/2020 03/17/2021 1 1 Reason for Visit * Reason Comments Trauma Hospital Transfer * Auth/Cert Specialty Diagnoses / Procedures Referred By Contac t Referred To Contact Diagnoses Trauma SAH / SDH Procedures er ipi Referral ID Status Reason Start Date Expiration Date Visits Re quested Visits Authorized [id number] 1 1 Encounter Details Date Type Department Care Team (Late st Contact Info) Description 02/18/2021 7:58 PM EDT - 02/26/2021 2:57 PM EDT Hospital Encounter 3 [place] [address] Alex Carrillo MD [facility] [place] [address] Feliciano Estrada MD [facility] [place] [address] Eduard Luu MD [address] [place], [place] [address] [address] Kaci Blake MD [facility] [place] [address] Trauma; Syncope, unspecified syncope type; Intracranial bleed; [...] Center 03/14/2021 8:30 AM Kristi Carey APRN [facility] SURG [facility] 03/14/2021 9:40 AM [facility] [address] [facility] Rad 03/14/2021 10:30 AM Silvia Zapata APRN [facility] [id number] [facility] Other In-hospital Issues: - Acute Pain [...] Thrombocytopenia and spontaneous bleeding Operations/Procedures: HPI: Narcisa Jayce??is a 75 y.o.??male??presents to [facility] s/p fall from standing. ??Description of events leading up to injury includes: ??Patient was outside [facility], there for a urinary retention and PCP appointment, was sitting on a bench. His went to get the car and heard a thud. She turned around and saw him on the cement unresponsive, reportedly for two minutes. [facility].??He was found to have a subdural hematoma and was transferred to [facility] for further management. ?? Primary survey??revealed: [...] services. His , Darrel, has been his commercial photographer and was comfortable with the role. In [...] of this plan as well as agreement. Narcias Eduardo's pain was adequately controlled, He was [...] Not indicated, tolerating diet Consults (Please see review consultant notes): PT/OT, NSGY, Neuro Dispo: Home [...] Center 03/14/2021 8:30 AM Kristi Carey APRN [facility] SURG [facility] 03/14/2021 9:40 AM [facility] [address] [facility] Rad 03/14/2021 10:30 AM Silvia Zapata APRN [facility] [id number] [facility] Outpatient Services/Studies: CT Head wo Contrast (Generic) Standing Status: Future Standing Exp. Date: 05/22/21 Question Response Notes Clinical information / barillas questions: follow-up tSAH, parafalcine SDH Where will study be performed? [facility] Radiology [120] Referral to Home Health - at DISCHARGE Order Comments: DOCUMENTATION FOR VNA SERVICES (INCLUDING THOSE PATIENTS WITH MEDICARE COVERAGE REQUIRING HOME VNA SERVICES AND/OR HOSPICE SERVICES) PATIENT'S LOCATION: [place] [address] [facility] [address] ([facility] Cell: Telephone Information: In discussion with the attending physician, it is certified that this patient is under their care and that they, or a Nurse Practitioner,Clinical Nurse specialist or Physician Corrugated Fastener Driver who is working directly with them, had [...] for managing ADL's. HOME HEALTH CARE AGENCY: [facility]. PHONE: [phone] FAX: [phone] Start of care: 24-48 hours after discharge [...] this patient's PCP: Alfredo Montoya, DO [address] [facility] [address] All A agencies which cover the area of patient's residence have been reviewed, either verbally tessy writing, and patient/family have chosen the home health care agency noted Question Response Notes Agency name and contact information [facility] Patient location post discharge Home What services are requested Registered Nurse What services are requested Physical Therapy What services are requested Occupational Therapy Responsible MD post discharge contact info PCP Special Instructions Given to Patient at Discharge:. An After Visit Summary was printed and given to the patient. Your care was managed by the Trauma and Acute Care Surgery Team at [facility]. If you have any questions or concerns, please feel free to contact us. Provider Contact Information: General Surgery Clinic: Nurses line for questions: [facility] (after business hours): CC: Alfredo Montoya DO Yuliya Kramer Kristi Carey APRN Signed: Nj Kimball APRN Department of Surgery 02/26/2021 Trauma pager [phone] This patient was seen in conjunction with [...] anticoagulant, and non-steroidal anti-inflammatory (NSAIDs) drugs. Common jvmp-yer-capjukx medications which should be avoided include Aspirin, [...] a head injury. - When your health cna caregiver says you are well enough, return to your normal activities gradually, not all at once. - Talk with your health cna caregiver about when you can return to work. DRIVING: - Do not drive while taking narcotic pain medication. FOLLOW UP PLAN: Appointment: Please follow-up in the Neurosurgery Clinic in 2 weeks with a Neurosurgery Associate Provider. Please call the Neurosurgery Office at [phone] if you do not receive a scheduled appointment withintwo weeks Imaging: Head CT HOW TO REACH NEUROSURGERY Office Hours: Wednesday through Wednesday, 8am-5pm. Call . On weekends or after office hours: Call [phone] and ask the cylinder machine operator to page the Neurosurgery Resident/Advanced Practice Provider regional sales trainer. IMPORTANT PHONE NUMBERS: Outpatient Nurse (Arielle Cedillo) Inpatient Nurses Neurosurgical Resident/Advanced Practice Provider On-Call (after 5pm or before 8am) Neurosurgery offices (Wednesday through Wednesday between 8am-5pm): Adult Neurosurgery Dr. Tariq Cm Pediatric Neurosurgery Dr. Bonita Bush Advanced Practice Providers Silvia Zapata, Nurse Practitioner (outpatient) Linnea Muhammad, Physician Corrugated Fastener Driver (inpatient) Chloé Hummel, Nurse Practitioner (inpatient) Whit Sorensen, Physician Corrugated Fastener Driver (inpatient) Whit Luke, Physician Corrugated Fastener Driver (inpatient) Kristie Amaya, Physician Corrugated Fastener Driver (outpatient: spine) Romario Loyola, Nurse Practitioner (inpatient/outpatient) Naty Gardiner, Physician Corrugated Fastener Driver (outpatient) Marlene Sierra, Nurse Practitioner (outpatient: neuro-oncology) * Patient Instructions* Nj Kimball, KENO ATTENDANT - 02/23/2021 8:55 PM EDT Discharge Instructions [...] be with Yuliya Crespo a Geriatrics Physician Corrugated Fastener Driver. Yuliya is also a former physical therapist. [...] 1. You will have follow-up appointments at [facility] as indicated in the ???Future Appointments [...] on the next business day. Please call [phone] if you do not hear from us by that time, as your timely follow-up is very important to us. Your care was managed by the Trauma and Acute Care Surgery Team at [facility]. If you have any questions or concerns, please feel free to contact us. Provider Contact Information: General Surgery: [facility] (after business hours): Primary Care Physician: [...] PM EDT Patient discharged to home with [facility] services. IV removed, site benign. [...] was faxed to [facility], RN called report to A, report given [...] cancer s/p radiation?admitted on 02/18/2021?In transfer from [facility]??for??fall from standing.??.? Injuries from fall:?? 1. ??Multiple [...] at home.??He was being followed by a HEATING AND VENTILATING TENDER who he states was considering thickening his liquids. Denies having a MBS. ??Reports difficulty initiating a swallow. HEATING AND VENTILATING TENDER taught him to put downward pressure with [...] when offered. Pt became slightly agitated with HEATING AND VENTILATING TENDER trialing therapeutic techniques for swallow initiation, as [...] time as Pt was became irritated that HEATING AND VENTILATING TENDER was trying to casarez his swallow function; [...] has worked on this with a previous HEATING AND VENTILATING TENDER. Patient status, treatment and swallow recommendations were discussed with nursing and primary team. Requested senior user experience architect recommendations with Pt's family when they arrive to pick him up today. Assessment: Pt was seen today for a follow-up HEATING AND VENTILATING TENDER visit. At bedside, Pt continues to present with oral holding with thin liquids. Several therapeutic trials to assist with timeliness of swallow were trialed and appeared helpful, however, could not complete enough due to Pt refusal. No overt s/s pene tration/aspiration with PO trials on this date at bedside. Pt currently denies swallowing deficits,but acknowledges working with an outside HEATING AND VENTILATING TENDER. Pt was independently taking small bites at a slow rate at bedside on this date. Pt will benefit from continued therapeutic interventions to achieve therapy goals. Discussed with Pt being seen by HEATING AND VENTILATING TENDER in discharge setting. Pt states he is agreeable to see his previous HEATING AND VENTILATING TENDER. Diagnosis: Oral phase dysphagia; Oropharyngeal phase deficits seen on [facility] 02/20/21 Recommendations: Diet: Regular solids, Thin liquids; [...] and safe swallowing strategies. Plan: Therapy Frequency (HEATING AND VENTILATING TENDER Eval): 1-3 times/wk Pt. in agreement with treatment plan. Total Minutes (Speech Language Pathology): 14 Davy Sierra MS, [facility]-HEATING AND VENTILATING TENDER Pager: [phone] Speech-Language Pathology Inpatient Rehabilitation Department * Nj Kimball, KENO ATTENDANT - 02/26/2021 10:38 AM EDT Trauma Daily [...] the trauma service for the management of [facility] injuries. Plan: Traumatic Injuries: Injury Intervention Follow-up [...] discussed with the patient's daughter by telephone ([phone]). Acute in hospital issues: Acute pain -3 [...] diet Lines/Tubes/Drains: PIV, mckeon Consults (Please see review consultant notes): PT/OT Dispo: Home with VNA/Assist,CRC working on dispo plan Status: Floor Incidental Findings: Complex cystic lesion in the left interpolar kidney measuring 3.8 cm, indeterminate, recommend further characterization with ultrasound. [x] Incidental Findings Form Completed Nj Kimball APRN 02/26/2021 Trauma pager [phone] * Nj Kimball APRN - 02/26/2021 10:26 [...] CASE INFORMATION: None FOLLOW-UP NEEDED: Specify Trauma AMBULATORY CARE NURSE or Attending and time frame (please indicate reason if attending provider): KENO ATTENDANT in 2 weeks Imaging and Referral orders [...] and transferred to ICU, then [facility]. Pt now stable on [facility] w/ reporting probable DC to home tomorrow [...] falls, but does endorse frequent admissions to [facility] recently, and one stint at rehab. He [...] Precautions/Special Considerations:?? Fall risk, SBP <160, PIV, BLACKFEET, activity as tolerated; seizure precautions- pads in [...] activities, home management YANET STOKES, PT Pager: [phone] Physical Therapy Inpatient Rehabilitation Department * Oralia [...] encounter: 58.8 kg (129 lb 10.1 oz). [place] Body Weight: 73 kg Usual Body Weight: [...] lb 9.6 oz) Assessment: Estimated needs: Calories: 4779-6579 (25-30 kcal/kg +500 for wt gain) Protein: 88-118 grams (1.5-2 g/kg) Nutrition Focused Physical Exam (NFPE): Performed on 02/25 by CL. Subcutaneous fat loss at Orbital region: Severe Upper arm region (triceps/biceps): Moderate Thoracic and lumbar region (ribs, lower back and maxillary line): Severe Lean muscle loss to [place] region (temporalis muscle): Severe Clavicle bone region [...] look the same as those POW from [facility] or the [facility]. Pt reports his at home has [...] seeing outpt nutrition again. Provided pt with creative services writer's contact info if further questions arise, [...] up while inpatient Oralia Oakes RD Pager #:[phone] * Lacey Hamlin OTA - 02/25/2021 10:17 [...] times/wk Total Minutes, Occupational Therapy: 25 Pager: [phone] GERARDO BALLESTEROS 02/25/2021 Occupational Therapy Rehabilitation Department [...] diet Lines/Tubes/Drains: PIV, mckeon Consults (Please see review consultant notes): PT/OT Dispo: TBD,CRC working on dispo plan Status: Floor Incidental Findings: Complex cystic lesion in the left interpolar kidney measuring 3.8 cm, indeterminate, recommend further characterization with ultrasound. [x]? Incidental Findings Form Completed Charleen Colby MD 02/25/2021 Trauma pager [phone] I saw and evaluated the patient with [...] and transferred to ICU, and transferred [facility] on 02/22/21. Interval History: 02/21/21- CT revealing increased size of hygroma and seizure earlier in the day- to ICU on 02/21/21; Stable hygroma on repeat Head CT 02/22 to [facility] on 02/22/21 Social History: Patient is somewhat of poor historian. Reports he lives with his (Canoe-y phonetically) in asingle level house with 4 sets of stairs to enter. Sleeps in a regular bet but does have reclinerchair if needed. Typically ambulates without AD but sometimes his holds onto his shirt. He denies other hx of falls, but does endorse frequent admissions to [facility] recently, and one stint at rehab. He [...] Precautions/Special Considerations: Fall risk, SBP <160, PIV, BLACKFEET, activity as tolerated; seizure precautions- pads in [...] Pt in bed getting cleaned up with clinical staff educator after incontinence episode. Pt friendly, but a [...] Therapy: 34 (functional mobility) GA ORANTES, PT Pager:[phone] Physical Therapy Inpatient Rehabilitation Department * Kaci [...] diet Lines/Tubes/Drains: PIV, mckeon Consults (Please see review consultant notes): PT/OT Dispo: TBD,CRC working on dispo plan Status: Floor Incidental Findings: Complex cystic lesion in the left interpolar kidney measuring 3.8 cm, indeterminate, recommend further characterization with ultrasound. [x]? Incidental Findings Form Completed Charleen Colby MD 02/24/2021 Trauma pager [phone] ADDENDUM: I have independently seen and evaluated [...] forgetful. VSS, RA. Mckeon catheter - chronic ATM TECHNICIAN draining CYU.Bed padded for injury prevention incase [...] Bowel Regimen Miralax BID Senna ?? LBM: ATM TECHNICIAN Acute UTI - CTX x7 days - [...] diet Lines/Tubes/Drains: PIV, mckeon Consults (Please see review consultant notes): PT/OT Dispo: TBD,CRC working on dispo plan Status: Floor Incidental Findings: Complex cystic lesion in the left interpolar kidney measuring 3.8 cm, indeterminate, recommend further characterization with ultrasound. [x]? Incidental Findings Form Completed Charleen Colby MD 02/23/2021 Trauma pager [phone] ADDENDUM: I have independently seen and evaluated [...] 02/22/2021 3:55 PM EDT Patient transferred to [facility]. Report given to receiving RN. All belongings [...] displacement of the left hemisphere and mild erfh-he-skwag midline shift measuring 7 mm at the [...] ?? Bowel Regimen Miralax BID ?? LBM: ATM TECHNICIAN - Acute pain Assessment: Narcisa Eduardo is [...] Bowel Regimen Miralax BID Senna ?? LBM: ATM TECHNICIAN Acute UTI - CTX x7 days - [...] diet Lines/Tubes/Drains: PIV, mckeon Consults (Please see review consultant notes): PT/OT Dispo: TBD,CRC working on dispo plan Status: Floor Incidental Findings: Complex cystic lesion in the left interpolar kidney measuring 3.8 cm, indeterminate, recommend further characterization with ultrasound. [x]? Incidental Findings Form Completed Pam Padilla, CHOLO 02/22/2021 Trauma pager [phone] ADDENDUM: I have independently seen and evaluated [...] nausea and no vomiting Last Bowel Movement: (ATM TECHNICIAN) Patient education / questions: all nutrition related questions answered at this time, to be seen [facility] services to follow weekly through hospital course unless consulted in the interim. 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 Head & [...] who have questions please contact the health cna caregiver that requested your imaging first. Thoracic Spine [...] who have questions please contact the health cna caregiver that requested your imaging first. Lumbar Spine Reconstruction (Exam End: 02/18/2021 8:43 [...] who have questions please contact the health cna caregiver that requested your imaging first. Face wo Contrast (Exam End: 02/18/2021 8:43 [...] who have questions please contact the health cna caregiver that requested your imaging first. Chest Abdomen [...] resident's interpretation and agree with the findings, Dmaian Duggan MD at 02/18/2021 11:49 PM Thank you for letting us participate in the care of this patient. If you are a health care provider and have any questions regarding this report, please contact the number below. For patients who have questions please contact the health cna caregiver that requested your imaging first. Fluoro Barium Swallow (Modified/Video Swallow Pharynx) (Exam [...] who have questions please contact the health cna caregiver that requested your imaging first. Head wo Contrast (Generic) (Exam End: 02/21/2021 3:51 PM) Impression 1. Decreased supratentorial and infratentorial subarachnoid hemorrhage. Intraventricular hemorrhages are stable to minimally decreased. 2. 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 5 mm cklp-ke-nxyud midline shift is stable. Thank you for letting us participate in the care of this patient. If you are a health care provider and have any questions regarding this report, please contact the number below. For patients who have questions please contact the health cna caregiver that requested your imaging first. Head wo Contrast (Generic) (Exam End: 02/22/2021 [...] who have questions please contact the health cna caregiver that requested your imaging first. Active Hospital Problems Diagnosis ??? Trauma Resolved [...] lymphoma (s/p unk chemo regimen at the [facility], in remission as of 07/12), hypertension, CVA [...] mass effect with sulcal effacement. 5 mm saib-cg-yatvx midline shift is stable. Cx: Urine cx [...] remains seizure- free overnight. Patient currently with Mckeno. 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 Head & [...] who have questions please contact the health cna caregiver that requested your imaging first. Thoracic Spine [...] who have questions please contact the health cna caregiver that requested your imaging first. Lumbar Spine Reconstruction (Exam End: 02/18/2021 8:43 [...] who have questions please contact the health cna caregiver that requested your imaging first. Face wo Contrast (Exam End: 02/18/2021 8:43 [...] who have questions please contact the health cna caregiver that requested your imaging first. Chest Abdomen [...] who have questions please contact the health cna caregiver that requested your imaging first. Fluoro Barium Swallow (Modified/Video Swallow Pharynx) (Exam [...] who have questions please contact the health cna caregiver that requested your imaging first. Head wo Contrast (Generic) (Exam End: 02/21/2021 3:51 PM) Impression 1. Decreased supratentorial and infratentorial subarachnoid hemorrhage. Intraventricular hemorrhages are stable to minimally decreased. 2. 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 5 mm fjgd-nr-krnqo midline shift is stable. Thank you for letting us participate in the care of this patient. If you are a health care provider and have any questions regarding this report, please contact the number below. For patients who have questions please contact the health cna caregiver that requested your imaging first. Active Hospital Problems Diagnosis ??? Trauma Resolved [...] times/wk Total Minutes, Occupational Therapy: 22 Pager: [phone] Dawn Black OT 02/21/2021 Occupational Therapy Rehabilitation [...] mass effect with sulcal effacement. 5 mm gruc-kk-vvqls midline shift is stable. 5:27 PM * [...] health care YANET STOKES, PT Pager # [phone] In-Pt Rehab Medicine * Jen Erickson MD [...] L Finger flexion 4/5 R 4/5 L Campaign Director LE: 5/5 R 5/5 L Knee extension [...] Procedure Component Value Units Date/Time Urine culture [[id number]] (Abnormal) (Susceptibility) Collected: 02/18/212012 Lab Status: Final [...] who have questions please contact the health cna caregiver that requested your imaging first. head and [...] Telemedicine visit by Dr. Post Neurology at [facility] on 01/13/2021: initially put on keppra 750mg BID for witnessed focal seizure 06/2020 but that was switched to depakote for mood changes. Most recent reported, witnessed seizure 01/05/2021 after which he was admitted to [facility] and switched from depakote in November due to diarrhea - put on lacosamide 50mg BID. Per daughter at bedside, patient's witnessed patient in bed with UE flexion/rigidity and his eyes rolled in the back of his head. Similar eye movements and rigidity were described during seizure events this past Fall. After admission at [facility] patient's Vimpat increased outpatient byDrJorge A [...] MD Neurology, PGY-3 Neurology Consult Service, pager #[phone] 02/21/2021 Associated attestation - Leandro Bowen MD [...] studies. Ragini Bowen MD Department of Neurology [facility] * Charleen Colby MD - 02/21/2021 1:44 [...] ?? Bowel Regimen Miralax BID ?? LBM: ATM TECHNICIAN - Acute pain Assessment: Narcisa Eduardo is [...] Bowel Regimen Miralax BID Senna ?? LBM: ATM TECHNICIAN ?? Resolved in hospital issues: none Chronic [...] diet Lines/Tubes/Drains: PIV, mckeon Consults (Please see review consultant notes): PT/OT Dispo: TBD,CRC working on dispo plan Status: Floor Incidental Findings: Complex cystic lesion in the left interpolar kidney measuring 3.8 cm, indeterminate, recommend further characterization with ultrasound. [x]? Incidental Findings Form Completed Charleen Colby MD 02/21/2021 Trauma pager [phone] * Mamta Jaquez RN - 02/20/2021 6:08 [...] radiation admitted on 02/18/2021 In transfer from [facility] for fall from standing. . ?? [...] home. He was being followed by a HEATING AND VENTILATING TENDER who he states was considering thickening his liquids. Denies having a MBS. Reports difficulty initiating a swallow. HEATING AND VENTILATING TENDER taught him to put downward pressure with [...] and time;Decreased safety awareness;Decreased safety awareness; Poor nurses medical assistants phlebotomists; Positioning: Sitting in Haustead chair at approximately [...] for now. Pt would benefit from skilled HEATING AND VENTILATING TENDER services to maximize swallow function and safety [...] and safe swallowing strategies. Plan: Therapy Frequency (HEATING AND VENTILATING TENDER Eval): 1-3 times/wk Pt. in agreement with treatment plan. Total Minutes (Speech Language Pathology): 57 Thank you for this consult with this patient. Please feel free to page me with any questions or concerns. Davy Sierra MS, [facility]-HEATING AND VENTILATING TENDER Pager: [phone] Speech-Language Pathology Inpatient Rehabilitation Department * Charleen [...] ?? Bowel Regimen Miralax BID ?? LBM: ATM TECHNICIAN - Acute pain Assessment: Narcisa Eduardo is [...] Bowel Regimen Miralax BID Senna ?? LBM: ATM TECHNICIAN ?? Resolved in hospital issues: none Chronic [...] diet Lines/Tubes/Drains: PIV, mckeon Consults (Please see review consultant notes): PT/OT Dispo: TBD,CRC working on dispo plan Status: Floor Incidental Findings: Complex cystic lesion in the left interpolar kidney measuring 3.8 cm, indeterminate, recommend further characterization with ultrasound. []? Incidental Findings Form Completed Charleen Colby MD 02/20/2021 Trauma pager [phone] * Joana Portillo RN - 02/19/2021 6:28 PM EDT Illness Severity [x] Stable [] Watcher [] Unstable Patient Summary Reason for admission: Admitted for SDH. Pt had a ground level fall after an appointment with his PCP for urinary retention. Pt was then picked up by [facility], brought to [facility] and was found to have a SDH. Transferred to [facility] for monitoring/treatment. On admission, no facial [...] Summary (OLD) To Do (OLD) * Epifanio Wrad MSW - 02/19/2021 5:56 PM EDT BUCKLE STRAP DRUM OPERATOR met with pt while his spouse and dtr were visiting. Business Strategist was following up from his conversation with Dr. Reese regarding identifying available resources for adult day programs. Business Strategist provided pt with a list of programs in his geographic area. Pts dtr also noted that she is willing to adjust her work schedule to allow her to visit pt more frequently throughout the week. Pts spouse also mentioned having some friends who have a nursing background and she will be inquiring on their availability. Business Strategist provided pt/family with my contact information and will remain available throughout pts dispo * Linnea Muhammad PA - 02/19/2021 5:34 PM EDT Brief Neurosurgery Progress Note Narcisa Eduardo is a 75 y.o. male with PMH of HTN, non-Hodgkin's lymphoma, CVA [distal MCA occlusion/RIGHT frontal infarct], history of aneurysm s/p embolization, seizures [on lacosamide - last seizure was 01/05/2021] who presented in transfer from [place] [facility] for evaluation and management of injuriessustained [...] Neurosurgery is signing off Please page Neurosurgery [phone] with questions. RASHIDA MoctezumaC * Elaina Johnson [...] approximate. at [facility] [address] Ko ??? PROSTATE BIOPSY 11/23/2019 Social [...] falls, but does endorse frequent admissions to [facility] recently, and one stint at rehab. He has a fear of falling/fear of use of walkers (reports they are going to run away on him) He reports assists PRN with hygiene, toileting, ADLs and all IADLs. Precautions/Special Considerations: Fall risk, SBP <160, PIV, BLACKFEET, activity as tolerated Mobility and Positioning Recommendations: [...] outlinedin this evaluation. Time IN / OUT: 3801-0958 Total Minutes, Physical Therapy: 45 (Eval) Thank you for this consult. Elaina Johnson, PT Pager: [phone] Physical Therapy Inpatient Rehabilitation Department * Davy Sierra, HEATING AND VENTILATING TENDER - 02/19/2021 11:46 AM EDT Speech Therapy Bedside Swallow Evaluation Patient Profile: Narcisa Eduardo is a 75 y.o. male with a past medical history significant for R MCA stroke (ESUS, Sep 2019) c/b seizure disorder, L SDH s/p MMA embolization (Aug 2020), follicular lymphoma in remission, and prostate cancer s/p radiation admitted on 02/18/2021 In transfer from [facility] for fall from standing. . Injuries [...] home. He was being followed by a HEATING AND VENTILATING TENDER who he states was considering thickening his liquids. Denies having a MBS. Reports difficulty initiating a swallow. HEATING AND VENTILATING TENDER taught him to put downward pressure with [...] Decreased safety awareness; Decreased safety awareness; Poor nurses medical assistants phlebotomists; Perseveration; Impulsive Follows Commands: Follows multi-step commands [...] dysphagia and being followed by an outside HEATING AND VENTILATING TENDER. In the process of trying to obtain [...] function at bedside and reports that previous HEATING AND VENTILATING TENDER was considering placing Pt on thickened liquids. MBS is tentatively scheduled for 11:00 on 02/20/21. RN to discuss swallowing history with Pt's as she is on route and contact HEATING AND VENTILATING TENDER with any concerns. Diagnosis: Oral phase dysphagia; [...] oral care Pt will benefit from continued HEATING AND VENTILATING TENDER services while hospitalized; Anticipate Pt will require HEATING AND VENTILATING TENDER services in discharge setting Speech Therapy Goals: (To be met by discharge) Pt will tolerate least restrictive diet without evidence of dysphagia / aspiration. Pt / caregiver will be independent with aspiration precautions, diet modifications, and safe swallowing strategies. Plan: Therapy Frequency (HEATING AND VENTILATING TENDER Eval): 2-4 times/wk Pt. in agreement with treatment plan. Total Minutes (Speech Language Pathology): 49 Thank you for this consult with this patient. Please feel free to page me with any questions or concerns. Davy Sierra, MS, [facility]-HEATING AND VENTILATING TENDER Pager: [phone] Speech-Language Pathology Inpatient Rehabilitation Department * Rao [...] L Finger flexion 5/5 R 5/5 L Campaign Director 5/5 R 5/5 L APB LE: 5/5 [...] in the last 7068 hours. Invalid input(s): [id number] No results for input(s): HA1C in the [...] who have questions please contact the health cna caregiver that requested your imaging first. Head & [...] who have questions please contact the health cna caregiver that requested your imaging first. Thoracic Spine [...] who have questions please contact the health cna caregiver that requested your imaging first. Chest Abdomen [...] stroke or current bleed. Aside for continuing ATM TECHNICIAN seizure meds, no other recommendations currently advised. [...] if further consultation required. Rao Rojaston MS4 [facility] 02/19/2021 Neurology Consult Service, pager #[phone] * Tayler Reese MD - 02/19/2021 8:16 [...] is a 75 y.o. male presents to [facility] s/p fall from standing. Description of events leading up to injury includes: Patient was outside [facility], there for a urinary retention and PCP appointment, was sitting on a bench. His went to get the car and heard a thud. She turned ar ound and saw him on the cement unresponsive, reportedly for two minutes. Patient was seen by [facility] and brought to Emergency Room. He was found to have a subdural hematoma and was transferred to [facility] for further management. ?? Primary survey [...] approximate. at [facility] [address] Ko ??? PROSTATE BIOPSY 11/23/2019 HOME [...] who have questions please contact the health cna caregiver that requested your imaging first. Chest AP and Pelvis AP Trauma (Generic) [...] who have questions please contact the health cna caregiver that requested your imaging first. Face wo Contrast Result Date: 02/18/2021 EXAMINATION: [...] who have questions please contact the health cna caregiver that requested your imaging first. Head & [...] who have questions please contact the health cna caregiver that requested your imaging first. Film Library- [...] who have questions please contact the health cna caregiver that requested your imaging first. Thoracic Spine Reconstruction Result Date: 02/18/2021 EXAMINATION: [...] who have questions please contact the health cna caregiver that requested your imaging first. SSMENT/SUMMARY OF INJURIES: 75 y.o. male with PMH [...] q6hr SCHED - hydromorphone Bowel Regimen LBM: ATM TECHNICIAN Tetanus status: unknown Admission UA: Blood, WBC, [...] SCDs, holding for Neuro GI PPX: H2 Tmi Lines/Tubes/Drains: PIV, mckeon Consults (Please see review consultant notes): PT/OT, NSGY Dispo: TBD,CRC working on dispo plan Status: Stepdown NSCU Incidental Findings- Complex cystic lesion in the left interpolar kidney measuring 3.8 cm, indeterminate, recommend further characterization with ultrasound. [] Incidental Findings Form Completed Charleen Colby MD 02/19/2021 Trauma pager [phone] documented in this encounter H&P Notes * Feliciano Estrada MD - 02/18/2021 8:54 PM EDT Trauma Surgery Admission History & Physical Patient Name: Narcisa Eduardo Level of Activation: Alert MR#: [id number] [ ] Scene Call or [X] Hospital Transfer : [id number] CC/MECHANISM OF INJURY: 75 y.o. Male s/p fall from standing, on 02/18 HISTORY OF PRESENT ILLNESS: Narcisa Eduardo is a 75 y.o. male presents to [facility] s/p fall from standing. Description of events leading up to injury includes: Patient was outside [facility], there for a urinary retention and PCP appointment, was sitting on a bench. His went to get the car and heard a thud. She turned ar ound and saw him on the cement unresponsive, reportedly for two minutes. Patient was seen by [facility] and brought to Emergency Room. He was found to have a subdural hematoma and was transferred to [facility] for further management. Primary survey revealed: [...] approximate. at [facility] [address] Ko ??? PROSTATE BIOPSY 11/23/2019 ALLERGIES: [...] mcL Appearance UA Cloudy (A) Clear Spec [place] UA 1.011 1.005 - 1.030 Color UA [...] ?? Consulting Services and plans: 1. Neurosurgery: [facility] for q2 hour neuro checks 2. Neurology ?? Spine status: final reads pending, no C spine fracture, see precautions as ordered ?? Pain control: tylenol, prn dilaudid ?? DVT prophylaxis: Mechanical compression ?? GI prophylaxis: None ?? Tertiary survey in AM ?? DISPO: [facility] Carmelo Ventura MD 02/18/2021 Trauma Surgery Attending Addendum: I was present on patient arrival and for the initial evaluation,and have discussed the plan with the resident staff. I agree with the above note with the followingadditions and/or modifications. Received in transfer from [facility] as a Trauma Alert for SDH after [...] who have questions please contact the health cna caregiver that requested your imaging first. Head & [...] who have questions please contact the health cna caregiver that requested your imaging first. Thoracic Spine [...] who have questions please contact the health cna caregiver that requested your imaging first. Lumbar Spine Reconstruction (Exam End: 02/18/2021 8:43 [...] who have questions please contact the health cna caregiver that requested your imaging first. Face wo Contrast (Exam End: 02/18/2021 8:43 [...] who have questions please contact the health cna caregiver that requested your imaging first. Chest Abdomen [...] who have questions please contact the health cna caregiver that requested your imaging first. Film Library- [...] to have subdural hematoma and transferred to [facility] for further evaluation On arrival he complains [...] 50 mcg, Intravenous, PER TRAUMA ANALGESIC PROTOCOL,Alex aCrrillo MD Current Outpatient Medications: ??? lacosamide (Vimpat) [...] the Emergency Department as trauma transfer from [facility] for neurosurgical evaluation after ground level fall [...] [facility], [place] [address] [facility] [address] Transportation: family or friend will provide Functional status prior to admission: Independent Home Environment: Others in the home: spouse. Current Living Arrangements: home/apartment/condo. Current Functional Ability: Assistive Person and Equipment DME used at home: none DME Needed at DC: None Patient is insured through: Primary Insurance: VACCN OPTVINCENT Payor: TANO DE LA ROSA / Plan: [facility] / Product Type: *No Product type* / Secondary Insurance: N/A Prescription Coverage: Yes [place] [facility] [place] [address] [facility] [address] [facility], [place] [address] [facility] [address] [facility] [address] [facility] - [place], [place] - [address] [facility] [address] [address] This plan was formulated with input from [...] copy of the Important Message. Chris Salazar competitive intelligence analyst Pgr: [phone] * Plan of Care - [...] None Patient is insured through: Primary Insurance: [facility] OPT [facility] / Plan: [facility] / Product Type: *No Product type* / Secondary Insurance: N/A Prescription Coverage: Yes [place] Pharmacy[place] [facility] [place] [address] [place] [address] [facility], [place] [address] [facility] [address] [facility] [place] [address] [facility] - [place], [place] - [address] [facility] [address] [address] Last Physical Therapy Recommendation: home with home [...] discharge home today w/ VNA services. The patient/circulation representative has been provided a list of Home Health Agencies/DME vendors which serve their preferred geographic area. A letter describing our affiliations was reviewed with them and they were educated about their right to choose where referrals are placed. Patient requests referral to [facility] [employer]. PHONE: [phone] FAX: [phone] Referral routed to the [employer]acker[employer] Machine Operator for matching with agency/vendor and to provide [...] for the patient and therefore was removed. MANAGER IMMUNOLOGY assisted patient to turn in the bed, [...] Tolerance: good Intake (%): 75% Current bed: [facility] with padded siderails Assessment: Skin tear [...] HOB higher than 30 degrees) Use a [employer] [address] chair cushion beneath patient at all times [...] Please contact KATIE MADRID RN on pager [phone] or the wound care team at [phone] or pager [phone] with skin and wound care concerns or [...] Eduardo would be surrogate decision maker per [place] surrogate decision making law. (Only good for 90 days) Any patient receiving care at [facility] must abide by [place] law. The hierarchy for surrogate decision making [...] Arrangements: home/apartment/condo. Current DME: none Home Address [address] [place] [id number] Social & Family Supports: Extended Emergency Contact [...] VACCN OPTUM Payor: V[employer] OPTUM / Plan: [place] OPT COMMUNITY CARE / Product Type: *No Product type* / Secondary Insurance: N/A Prescription Coverage: Yes Preferred Pharmacy: [facility] [place] [address] [address] [facility] - [address] [facility] [place] [address] [facility] - [place], [place] - [address] [facility] [address] [address] Status: Patient is a : Yes Are you enrolled in the [place] for your healthcare?: Yes Are you here under your VA benefit?: Yes Primary Care Provider: Alfredo Montoya DO [phone] Patient/Caregiver Goals of Treatment: Return home Potential Needs for Transition of Care: rehabilitation services Agency Referrals: n/a Transportation: no concerns Transportation Anticipated: family or friend will provide Concerns to be Addressed: discharge planning Assessment: Narcisa Eduardo is a 75yo male here for subarachnoid hemorrhage and subdural hemorrhage. Lives at home w/ spouse. Insured w/ Medicare and VA. [facility] medications filled at [facility] [place]. Plan: Depending on recovery anticipate will discharge home w/ VNA services vs long-term facility. A member of the Care Management team will continue to monitor progress, follow for continuity of care and assist with transition of care planning. Chris Salazar RN Case Manager Pgr: [phone] * Consult Note - Carmelita Mcdaniels RN [...] 02/19/2021 HCT 34.8 (L) 02/18/2021 Current bed: [facility] Assessment: Full thickness trauma wound to [...] Please contact Carmelita Mcdaniels RN on pager [phone] or the wound care team at [phone] or pager [phone] with skin and wound care concerns or [...] urologist. IVF D/C * Initial Assessments - Sofia Dawn E, OT - 02/19/2021 2:30 PM [...] approximate. at [facility] [address] Ko ??? PROSTATE BIOPSY 11/23/2019 Social [...] and measurable assessment of functional outcome. Pager: [phone] Dawn Black OT 02/19/2021 Occupational Therapy Rehabilitation Department * Consult Note - Alpa Alvarado MD - 02/19/2021 12:01 AM EDT Neurology Consultation Note - 02/18/2021 Patient name: Narcisa Eduardo Date of : 1945 PCP: Alfredo Montoya DO Primary Team: Trauma (#[id number]) CC: seizure medication management HPI: Narcisa Eduardo [...] Darrel. Following a visit to PCP in [place], asked himto wait on a bench while [...] 2012 date is approximate. at [facility] [address] Ko ??? PROSTATE BIOPSY 11/23/2019 Home [...] file Occupational History ??? 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 Occupation: [employer] Comment: [employer] Tobacco Use ??? Smoking status: Current Every [...] EtOH: none Drugs: none Lives with in [place], [place]. Served in [employer]. Stationed in [employer] and [place]. Physical Exam: Vitals: Temp: -- Heart Rate: [...] mcL Appearance UA Cloudy (A) Clear Spec [place] UA 1.011 1.005 - 1.030 Color UA [...] Value Ref Range T&S only valid at [facility] Hosp Rapid Drug Screen, Urine (CHRIS [...] who have questions please contact the health cna caregiver that requested your imaging first. Head & [...] who have questions please contact the health cna caregiver that requested your imaging first. Thoracic Spine [...] who have questions please contact the health cna caregiver that requested your imaging first. Chest Abdomen [...] studies. Ragini Bowen MD Department of Neurology [facility] * Consult Note - Chloé Hummel APRN [...] was 01/05/2021] who presented in transfer from [facility] for evaluation and management of injuries [...] He was taken to the ED at [facility] where he was found to have [...] approximate. at [facility] [address] Ko ??? PROSTATE BIOPSY 11/23/2019 Medications: [...] on file Occupational History ??? 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 Occupation: [employer] Comment: [employer] Tobacco Use ??? Smoking status: Current Every [...] was 01/05/2021] who presented in transfer from [facility] for evaluation and management of injuries [...] AM EDT Office Visit Radiation Oncology at [address] [phone] Taya De La Vega PA [facility] [place] [address] 11/13/2024 2:00 PM EDT Office Visit Hematology/Oncology at [address] [phone] Kirt Kennedy MD [facility] DR [place]AT[place] [address] Alem Lazaro APRN [address] [place] [address] DR [place] [address] documented as of this encounter [...] Unchanged left subdural hygroma with similar fashion [id number] midline shift compared to prior CT. 2. [...] who have questions please contact the health cna caregiver that requested your imaging first. ? Narrative [...] Unchanged left subdural hygroma with similar fashion ljdo-vb-stvkrgvviola shift compared to prior CT. 2. Expected [...] patients who have questions please contactthe health cna caregiver that requested your imaging first. Damian Vazquez MD IMG CT ORDERABLES * CT Head wo Contrast (Generic) (02/26/2021 10:07 AM EDT) Anatomical Region Laterality Modality Head Computed Tomogra phy 02/26/2021 10:2 4 AM EDT Impressions 02/26/2021 11:30 AM EDT 1. ??Unchanged left subdural collection with mass effect and 5 mm yvvx-fk-xiaok midline shift. 2. ??Evolution of left-sided subarachnoid [...] who have questions please contact the health cna caregiver that requested your imaging first. ? Electronically signed by: ABHI Nguyen [facility] ([phone]), at 02/26/2021 11:30 AM Narrative 02/26/2021 11:30 AM EDT EXAMINATION: CT [...] subdural collection with mass effect and 5 hieajy-wp-opjwr midline shift. 2. Evolution of left-sided subarachnoid [...] patients who have questions please contactthe health cna caregiver that requested your imaging first. Nj Kimball KENO ATTENDANT IMG CT ORDERABLES * (ABNORMAL) Differential, Automated (02/26/2021 4:04 AM EDT) Neutrophil % 72.4 % [facility] Neutrophil Absolute 4.95 1.70 - 6.10 x10(3)/mc L [facility] Lymph % 14.5 % [facility] Lymphocytes Abs 1.0 0.9 - 3.2 x10(3)/[facility] Monocyte % 8.9 % [facility] Monocyte Abs 0.6 0.3 - 0.9 x10(3)/[facility] Eos % 3.1 % [facility] Eosinophils Abs 0.2 0.0 - 0.4 x10(3)/[facility] Basophil % 0.4 % [facility] Baso Absolute 0.0 0.0 - 0.1 x10(3)/[facility] Immature Gran % 0.70 % [facility] Comment: Immature granulocytes(IG's)percentage and absolute count will include metamyelocytes, myelocytes, and promyelocytes. Blood smears from CBCs yielding IG's will be scanned manually for concordance. If this scan disagrees with the automated IG or if promyelocytes are noted, a manual differential will be performed. Immature Gran Absolute 0.05(H) 0.00 - 0.04 x10(3)/[facility] Blood 02/26/2021 4:04 AM EDT 02/26/2021 4:29 AM EDT Narrative Resulting Agency Comment Spec In Lab Pam Padilla APRN HEMATOLOGY ORDERAB LES Performing Organization Address City/State/[facility] Co de Phone Number [facility] [place] [address] * (ABNORMAL) Hemogram (02/26/2021 4:04 AM EDT) White Blood Cell 6.8 4.0 - 9.5 x10(3)/[facility] Red Blood Cell 3.80(L) 4.58 - 5.54 x10(6)/[facility] Hemoglobin 11.7(L) 13.7 - 16.5 gm/dL [facility] Hematocrit 36.4(L) 40.5 - 48.5 % [facility] Mean Cell Volume 95.8(H) 82.9 - 93.1 fL [facility] Mean Cell Hemoglobin 30.8 27.5 - 32.1 pg [facility] Mean Cell Hemoglobin Concentration 32.1 32.0 - 35.7 gm/dL [facility] Platelet 168 145 - 357 x10(3)/mc L [facility] RDW Standard Deviation 50.1(H) 36.0 - 45.0 fL [facility] RDW coefficient of variation 14.4(H) 11.4 - 13.8 % [facility] Mean Platelet Volume 8.9 7.6 - 12.9 [facility] NRBC% auto 0.0 % [facility] NRBC Absolute 0.000 0.000 - 0.000 x10(3)/mc L [facility] Blood 02/26/2021 4:04 AM EDT 02/26/2021 4:29 AM EDT Narrative Resulting Agency Comment Spec In Lab Pam Padilla APRN HEMATOLOGY ORDERAB LES Performing Organization Address City/[facility]/ZIP Co de Phone Number [facility] [place] [address] * Phosphorus (02/26/2021 4:04 AM EDT) Phosphorus 3.6 2.5 - 4.5 mg/dL [facility] Blood 02/26/2021 4:04 AM EDT 02/26/2021 4:29 AM EDT Narrative Resulting Agency Comment Spec In Lab Pam Padilla APRN CHEMISTRY ORDERABL ES Performing Organization Address [facility]/ZIP Co de Phone Number [facility] [place] [address] * Magnesium (02/26/2021 4:04 AM EDT) Magnesium 0.85 0.69 - 1.07 mmol/L [facility] Blood 02/26/2021 4:04 AM EDT 02/26/2021 4:29 AM EDT Narrative Resulting Agency Comment Spec In Lab Pam J Randy KENO ATTENDANT CHEMISTRY ORDERABL ES [facility] [place] [place] [address] * (ABNORMAL) Basic Metabolic Panel (non-fasting) (02/26/2021 4:04 AM EDT) Glucose 103 65 - 199 mg/dL [facility] Comment:Diabetes: >=200 mg/d L plus symptoms Blood Urea Nitrogen 11 10 - 20 mg/dL [facility] Creatinine 0.70(L) 0.80 - 1.50 mg/dL [facility] Sodium 139 135 - 145 mmol/L [facility] Potassium 4.1 3.5 - 5.0 mmol/L [facility] Comment: Please note: ??Patients with WBC >100,000 may have falsely elevated Potassium levels. ??For accurate Potassium quantification in these patients send serum separator tube (gold top) for subsequent determinations. ??Contact the Clinical Chemistry Laboratory if there are any questions. Chloride 105 98 - 107 mmol/L [facility] Carbon Dioxide 27 22 - 31 mmol/L [facility] Anion Gap 7 5 - 15 mmol/L [facility] Calcium 9.1 8.5 - 10.5 mg/dL [facility] Est Glomerular Filtration Rate 92 >=60 mL/min/1. 73 m?? [facility] Comment: This patient? s estimated glomerular [...] Agency Comment Spec In Lab Pam Padilla KENO ATTENDANT CHEMISTRY ORDERABL ES [facility] [place] [address] * (ABNORMAL) Differential, Automated (02/25/2021 2:56 AM EDT) Neutrophil % 74.3 % [facility] Neutrophil Absolute 5.26 1.70 - 6.10 x10(3)/mc L [facility] Lymph % 14.3 % [facility] Lymphocytes Abs 1.0 0.9 - 3.2 x10(3)/mc L [facility] Monocyte % 7.2 % [facility] Monocyte Abs 0.5 0.3 - 0.9 x10(3)/mc L [facility] Eos % 3.1 % [facility] Eosinophils Abs 0.2 0.0 - 0.4 x10(3)/mc L [facility] Basophil % 0.3 % [facility] Baso Absolute 0.0 0.0 - 0.1 x10(3)/mc L [facility] Immature Gran % 0.80 % [facility] Comment: Immature granulocytes(IG's)percentage and absolute count will include metamyelocytes, myelocytes, and promyelocytes. Blood smears from CBCs yielding IG's will be scanned manually for concordance. If this scan disagrees with the automated IG or if promyelocytes are noted, a manual differential will be performed. Immature Gran Absolute 0.06(H) 0.00 - 0.04 x10(3)/mc L [facility] Blood 02/25/2021 2:56 AM EDT 02/25/2021 3:18 AM EDT Narrative Resulting Agency Comment Spec In Lab Pam Padilla KENO ATTENDANT HEMATOLOGY ORDERAB LES [facility] [place] [address] * (ABNORMAL) Hemogram (02/25/2021 2:56 AM EDT) White Blood Cell 7.1 4.0 - 9.5 x10(3)/[facility] Red Blood Cell 3.72(L) 4.58 - 5.54 x10(6)/[facility] Hemoglobin 11.4(L) 13.7 - 16.5 gm/dL [facility] Hematocrit 35.2(L) 40.5 - 48.5 % [facility] Mean Cell Volume 94.6(H) 82.9 - 93.1 [facility] Mean Cell Hemoglobin 30.6 27.5 - 32.1 pg [facility] Mean Cell Hemoglobin Concentration 32.4 32.0 - 35.7 gm/dL [facility] Platelet 154 145 - 357 x10(3)/[facility] RDW Standard Deviation 49.1(H) 36.0 - 45.0 [facility] RDW coefficient of variation 14.2(H) 11.4 - 13.8 % [facility] Mean Platelet Volume 9.0 7.6 - 12.9 [facility] NRBC% auto 0.0 % [facility] NRBC Absolute 0.000 0.000 - 0.000 x10(3)/[facility] Blood 02/25/2021 2:56 AM EDT 02/25/2021 3:18 AM EDT Narrative Resulting Agency Comment Spec In Lab Pam Padilla APRN HEMATOLOGY ORDERAB LES Performing Organization Address [facility] Co de Phone Number [facility] [place] [address] * Phosphorus (02/25/2021 2:56 AM EDT) Phosphorus 3.5 2.5 - 4.5 mg/dL [facility] Blood 02/25/2021 2:56 AM EDT 02/25/2021 3:18 AM EDT Narrative Resulting Agency Comment Spec In Lab Pam Padilla APRN CHEMISTRY ORDERABL ES Performing Organization Address [facility] de Phone Number [facility] [place] [address] * Magnesium (02/25/2021 2:56 AM EDT) Magnesium 0.81 0.69 - 1.07 mmol/L [facility] Blood 02/25/2021 2:56 AM EDT 02/25/2021 3:18 AM EDT Narrative Resulting Agency Comment Spec In Lab Pam Padilla APRN CHEMISTRY ORDERABL ES Performing Organization Address [facility] Co de Phone Number [facility] [place] [address] * (ABNORMAL) Basic Metabolic Panel (non-fasting) (02/25/2021 2:56 AM EDT) Glucose 111 65 - 199 mg/dL [facility] Comment:Diabetes: >=200 mg/d L plus symptoms Blood Urea Nitrogen 10 10 - 20 mg/dL [facility] Creatinine 0.69(L) 0.80 - 1.50 mg/dL [facility] Sodium 139 135 - 145 mmol/L [facility] Potassium 4.1 3.5 - 5.0 mmol/L [facility] Comment: Please note: ??Patients with WBC >100,000 may have falsely elevated Potassium levels. ??For accurate Potassium quantification in these patients send serum separator tube (gold top) for subsequent determinations. ??Contact the Clinical Chemistry Laboratory if there are any questions. Chloride 104 98 - 107 mmol/L [facility] Carbon Dioxide 27 22 - 31 mmol/L [facility] Anion Gap 8 5 - 15 mmol/L [facility] Calcium 8.9 8.5 - 10.5 mg/dL [facility] Est Glomerular Filtration Rate 93 >=60 mL/min/1. 73 m?? [facility] Comment: This patient? s estimated glomerular [...] Lab Pam Padilla APRN CHEMISTRY ORDERABL ES [facility] [place] [address] * Differential, Automated (02/24/2021 4:24 AM EDT) Neutrophil % 77.1 % [facility] Neutrophil Absolute 6.02 1.70 - 6.10 x10(3)/[facility] Lymph % 12.0 % [facility] Lymphocytes Abs 0.9 0.9 - 3.2 x10(3)/[facility] Monocyte % 7.0 % [facility] Monocyte Abs 0.6 0.3 - 0.9 x10(3)/[facility] Eos % 2.8 % [facility] Eosinophils Abs 0.2 0.0 - 0.4 x10(3)/[facility] Basophil % 0.6 % [facility] Baso Absolute 0.0 0.0 - 0.1 x10(3)/[facility] Immature Gran % 0.50 % [facility] Comment: Immature granulocytes(IG's)percentage and absolute count will include metamyelocytes, myelocytes, and promyelocytes. Blood smears from CBCs yielding IG's will be scanned manually for concordance. If this scan disagrees with the automated IG or if promyelocytes are noted, a manual differential will be performed. Immature Gran Absolute 0.04 0.00 - 0.04 x10(3)/[facility] Blood 02/24/2021 4:24 AM EDT 02/24/2021 5:09 AM EDT Narrative Resulting Agency Comment Spec In Lab Pam Padilla APRN HEMATOLOGY ORDERAB LES [facility] [place] [address] * (ABNORMAL) Hemogram (02/24/2021 4:24 AM EDT) White Blood Cell 7.8 4.0 - 9.5 x10(3)/mc L [facility] Red Blood Cell 3.71(L) 4.58 - 5.54 x10(6)/mc L [facility] Hemoglobin 11.6(L) 13.7 - 16.5 gm/dL [facility] Hematocrit 36.7(L) 40.5 - 48.5 % [facility] Mean Cell Volume 98.9(H) 82.9 - 93.1 fL [facility] Mean Cell Hemoglobin 31.3 27.5 - 32.1 pg [facility] Mean Cell Hemoglobin Concentration 31.6(L) 32.0 - 35.7 gm/dL [facility] Platelet 137(L) 145 - 357 x10(3)/mc L [facility] RDW Standard Deviation 50.1(H) 36.0 - 45.0 fL [facility] RDW coefficient of variation 14.0(H) 11.4 - 13.8 % [facility] Mean Platelet Volume 8.9 7.6 - 12.9 fL [facility] NRBC% auto 0.0 % [facility] NRBC Absolute 0.000 0.000 - 0.000 x10(3)/mc L [facility] Blood 02/24/2021 4:24 AM EDT 02/24/2021 5:09 AM EDT Narrative Resulting Agency Comment Spec In Lab Pam Padilla APRN HEMATOLOGY ORDERAB LES Performing Organization Address City/[facility]/ZIP Co de Phone Number [facility] [place] [address] * Phosphorus (02/24/2021 4:24 AM EDT) Phosphorus 3.4 2.5 - 4.5 mg/dL [facility] Blood 02/24/2021 4:24 AM EDT 02/24/2021 5:09 AM EDT Narrative Resulting Agency Comment Spec In Lab Pam Padilla APRN CHEMISTRY ORDERABL ES [facility] [place] [address] * Magnesium (02/24/2021 4:24 AM EDT) Magnesium 0.78 0.69 - 1.07 mmol/L [facility] Blood 02/24/2021 4:24 AM EDT 02/24/2021 5:09 AM EDT Narrative Resulting Agency Comment Spec In Lab Pam J Randy KENO ATTENDANT CHEMISTRY ORDERABL ES [facility] [place] [address] * (ABNORMAL) Basic Metabolic Panel (non-fasting) (02/24/2021 4:24 AM EDT) Glucose 88 65 - 199 mg/dL [facility] Comment:Diabetes: >=200 mg/d L plus symptoms Blood Urea Nitrogen 8(L) 10 - 20 mg/dL [facility] Creatinine 0.51(L) 0.80 - 1.50 mg/dL [facility] Sodium 137 135 - 145 mmol/L [facility] Potassium 4.0 3.5 - 5.0 mmol/L [facility] Comment: Please note: ??Patients with WBC >100,000 may have falsely elevated Potassium levels. ??For accurate Potassium quantification in these patients send serum separator tube (gold top) for subsequent determinations. ??Contact the Clinical Chemistry Laboratory if there are any questions. Chloride 105 98 - 107 mmol/L [facility] Carbon Dioxide 25 22 - 31 mmol/L [facility] Anion Gap 7 5 - 15 mmol/L [facility] Calcium 8.9 8.5 - 10.5 mg/dL [facility] Est Glomerular Filtration Rate 105 >=60 mL/min/1. 73 m?? [facility] Comment: This patient? s estimated glomerular [...] Agency Comment Spec In Lab Pam Padilla KENO ATTENDANT CHEMISTRY ORDERABL ES [facility] [place] [address] * Differential, Automated (02/23/2021 3:17 AM EDT) Neutrophil % 76.6 % [facility] Neutrophil Absolute 6.02 1.70 - 6.10 x10(3)/[facility] Lymph % 13.0 % [facility] Lymphocytes Abs 1.0 0.9 - 3.2 x10(3)/[facility] Monocyte % 7.5 % [facility] Monocyte Abs 0.6 0.3 - 0.9 x10(3)/[facility] Eos % 2.2 % [facility] Eosinophils Abs 0.2 0.0 - 0.4 x10(3)/[facility] Basophil % 0.4 % [facility] Baso Absolute 0.0 0.0 - 0.1 x10(3)/[facility] Immature Gran % 0.30 % [facility] Comment: Immature granulocytes(IG's)percentage and absolute count will include metamyelocytes, myelocytes, and promyelocytes. Blood smears from CBCs yielding IG's will be scanned manually for concordance. If this scan disagrees with the automated IG or if promyelocytes are noted, a manual differential will be performed. Immature Gran Absolute 0.02 0.00 - 0.04 x10(3)/[facility] Blood 02/23/2021 3:17 AM EDT 02/23/2021 3:25 AM EDT Narrative Resulting Agency Comment Spec In Lab Pam Padilla APRN HEMATOLOGY ORDERAB LES [facility] [place] [address] * (ABNORMAL) Hemogram (02/23/2021 3:17 AM EDT) White Blood Cell 7.8 4.0 - 9.5 x10(3)/mc L [facility] Red Blood Cell 3.62(L) 4.58 - 5.54 x10(6)/mc L [facility] Hemoglobin 11.1(L) 13.7 - 16.5 gm/dL [facility] Hematocrit 33.9(L) 40.5 - 48.5 % [facility] Mean Cell Volume 93.6(H) 82.9 - 93.1 fL [facility] Mean Cell Hemoglobin 30.7 27.5 - 32.1 pg [facility] Mean Cell Hemoglobin Concentration 32.7 32.0 - 35.7 gm/dL [facility] Platelet 114(L) 145 - 357 x10(3)/mc L [facility] RDW Standard Deviation 47.7(H) 36.0 - 45.0 fL [facility] RDW coefficient of variation 13.9(H) 11.4 - 13.8 % [facility] Mean Platelet Volume 9.2 7.6 - 12.9 fL [facility] NRBC% auto 0.0 % [facility] NRBC Absolute 0.000 0.000 - 0.000 x10(3)/mc L [facility] Blood 02/23/2021 3:17 AM EDT 02/23/2021 3:25 AM EDT Narrative Resulting Agency Comment Spec In Lab Pam Padilla APRN HEMATOLOGY ORDERAB LES [facility] [place] [address] * Phosphorus (02/23/2021 3:17 AM EDT) Phosphorus 3.4 2.5 - 4.5 mg/dL [facility] Blood 02/23/2021 3:17 AM EDT 02/23/2021 3:25 AM EDT Narrative Resulting Agency Comment Spec In Lab Pam Padilla KENO ATTENDANT CHEMISTRY ORDERABL ES Performing Organization Address [facility] Co de Phone Number [facility] [place] [address] * Magnesium (02/23/2021 3:17 AM EDT) Magnesium 0.81 0.69 - 1.07 mmol/L [facility] Blood 02/23/2021 3:17 AM EDT 02/23/2021 3:25 AM EDT Narrative Resulting Agency Comment Spec In Lab Pam Padilla APRN CHEMISTRY ORDERABL ES Performing Organization Address [facility] Co de Phone Number [facility] [place] [address] * (ABNORMAL) Basic Metabolic Panel (non-fasting) (02/23/2021 3:17 AM EDT) Glucose 172 65 - 199 mg/dL [facility] Comment:Diabetes: >=200 mg/d L plus symptoms Blood Urea Nitrogen 8(L) 10 - 20 mg/dL [facility] Creatinine 0.62(L) 0.80 - 1.50 mg/dL [facility] Sodium 142 135 - 145 mmol/L [facility] Potassium 3.8 3.5 - 5.0 mmol/L [facility] Comment: Please note: ??Patients with WBC >100,000 may have falsely elevated Potassium levels. ??For accurate Potassium quantification in these patients send serum separator tube (gold top) for subsequent determinations. ??Contact the Clinical Chemistry Laboratory if there are any questions. Chloride 108(H) 98 - 107 mmol/L [facility] Carbon Dioxide 27 22 - 31 mmol/L [facility] Anion Gap 7 5 - 15 mmol/L [facility] Calcium 8.5 8.5 - 10.5 mg/dL [facility] Est Glomerular Filtration Rate 97 >=60 mL/min/1. 73 m?? [facility] Comment: This patient? s estimated glomerular [...] Lab Pam Padilla APRN CHEMISTRY ORDERABL ES [facility] [place] [address] * Differential, Automated (02/22/2021 4:25 AM EDT) Neutrophil % 76.2 % [facility] Neutrophil Absolute 5.14 1.70 - 6.10 x10(3)/[facility] Lymph % 13.1 % [facility] Lymphocytes Abs 0.9 0.9 - 3.2 x10(3)/[facility] Monocyte % 7.9 % [facility] Monocyte Abs 0.5 0.3 - 0.9 x10(3)/[facility] Eos % 1.9 % [facility] Eosinophils Abs 0.1 0.0 - 0.4 x10(3)/[facility] Basophil % 0.3 % [facility] Baso Absolute 0.0 0.0 - 0.1 x10(3)/[facility] Immature Gran % 0.60 % [facility] Comment: Immature granulocytes(IG's)percentage and absolute count will include metamyelocytes, myelocytes, and promyelocytes. Blood smears from CBCs yielding IG's will be scanned manually for concordance. If this scan disagrees with the automated IG or if promyelocytes are noted, a manual differential will be performed. Immature Gran Absolute 0.04 0.00 - 0.04 x10(3)/[facility] Blood 02/22/2021 4:25 AM EDT 02/22/2021 4:31 AM EDT Narrative Resulting Agency Comment Spec In Lab Rocio Smalls MD HEMATOLOGY ORDERABLE S Performing Organization Address City/State/[facility] Co de Phone Number [facility] [place] [address] * (ABNORMAL) Hemogram (02/22/2021 4:25 AM EDT) White Blood Cell 6.7 4.0 - 9.5 x10(3)/mc L [facility] Red Blood Cell 3.74(L) 4.58 - 5.54 x10(6)/mc L [facility] Hemoglobin 11.3(L) 13.7 - 16.5 gm/dL [facility] Hematocrit 34.6(L) 40.5 - 48.5 % [facility] Mean Cell Volume 92.5 82.9 - 93.1 fL [facility] Mean Cell Hemoglobin 30.2 27.5 - 32.1 pg [facility] Mean Cell Hemoglobin Concentration 32.7 32.0 - 35.7 gm/dL [facility] Platelet 119(L) 145 - 357 x10(3)/mc L [facility] RDW Standard Deviation 46.3(H) 36.0 - 45.0 [facility] RDW coefficient of variation 13.7 11.4 - 13.8 % [facility] Mean Platelet Volume 9.2 7.6 - 12.9 [facility] NRBC% auto 0.0 % [facility] NRBC Absolute 0.000 0.000 - 0.000 x10(3)/mc L [facility] Blood 02/22/2021 4:25 AM EDT 02/22/2021 4:31 AM EDT Narrative Resulting Agency Comment Spec In Lab Rocio Smalls MD HEMATOLOGY ORDERABLE S Performing Organization Address City/[facility]/ZIP Co de Phone Number [facility] [place] [address] * Phosphorus (02/22/2021 4:25 AM EDT) Phosphorus 3.4 2.5 - 4.5 mg/dL [facility] Blood 02/22/2021 4:25 AM EDT 02/22/2021 4:31 AM EDT Narrative Resulting Agency Comment Spec In Lab Pam Padilla KENO ATTENDANT CHEMISTRY ORDERABL ES Performing Organization Address [facility]/ZIP Co de Phone Number [facility] [place] [address] * Magnesium (02/22/2021 4:25 AM EDT) Magnesium 0.74 0.69 - 1.07 mmol/L [facility] Blood 02/22/2021 4:25 AM EDT 02/22/2021 4:31 AM EDT Narrative Resulting Agency Comment Spec In Lab Pam Padilla KENO ATTENDANT CHEMISTRY ORDERABL ES Performing Organization Address City/[facility]/ZIP Co de Phone Number [facility] [place] [address] * (ABNORMAL) Basic Metabolic Panel (non-fasting) (02/22/2021 4:25 AM EDT) Glucose 90 65 - 199 mg/dL [facility] Comment:Diabetes: >=200 mg/d L plus symptoms Blood Urea Nitrogen 6(L) 10 - 20 mg/dL [facility] Creatinine 0.51(L) 0.80 - 1.50 mg/dL [facility] Sodium 140 135 - 145 mmol/L [facility] Potassium 3.7 3.5 - 5.0 mmol/L [facility] Comment: Please note: ??Patients with WBC >100,000 may have falsely elevated Potassium levels. ??For accurate Potassium quantification in these patients send serum separator tube (gold top) for subsequent determinations. ??Contact the Clinical Chemistry Laboratory if there are any questions. Chloride 105 98 - 107 mmol/L [facility] Carbon Dioxide 28 22 - 31 mmol/L [facility] Anion Gap 7 5 - 15 mmol/L [facility] Calcium 8.8 8.5 - 10.5 mg/dL [facility] Est Glomerular Filtration Rate 105 >=60 mL/min/1. 73 m?? [facility] Comment: This patient? s estimated glomerular [...] Lab Pam Padilla APRN [place] [address] * CT Head wo Contrast (Generic) (02/22/2021 [...] who have questions please contact the health cna caregiver that requested your imaging first. ? Narrative 02/22/2021 4:34 AM EDT EXAMINATION: CT [...] displacement of the left hemisphere and mild khoa-[id number]-[id number] midline shift measuring 7 mm at the [...] displacement of the left hemisphere and mild [id number]-vr-dysxy midline shift measuring 7 mm at the [...] patients who have questions please contactthe health cna caregiver that requested your imaging first. Eduard Luu MD IMG CT ORDERABLES * [...] mass effect with sulcal effacement. 5 mm [id number] midline shift is stable. Thank you for letting us participate in the care of this patient. ??If you are a health care provider and have any questions regarding this report, please contact the number below. ??For patients who have questions please contact the health cna caregiver that requested your imaging first. ? Narrative 02/21/2021 4:09 PM EDT EXAMINATION: CT [...] increased masseffect with sulcal effacement. 5 mm usjq-gj-[id number] midline shift is stable. Thank you for letting us participate in the care of this patient. If youare a health care provider and have any questions regarding this report,please contact the number below. For patients who have questions please contactthe health cna caregiver that requested your imaging first. Nj Kimball KENO ATTENDANT IMG CT ORDERABLES * POCT Glucose (02/21/2021 2:38 PM EDT) [facility] Glucose, POC 136 65 - 199 mg/dL [facility] Comment: Supplemental ranges: <140 mg/dL before meals <180 mg/dL all other times of the day Blood 02/21/2021 2:38 PM EDT 02/21/2021 2:38 PM EDT Eduard Luu MD POINT OF CARE TEST O RDERABLES Performing Organization Address City/State/[facility] Co de Phone Number [facility] [place] [address] * Differential, Automated (02/21/2021 1:15 AM EDT) [facility] Neutrophil % 72.3 % [facility] Neutrophil Absolute 5.26 1.70 - 6.10 x10(3)/[facility] Lymph % 15.1 % [facility] [facility] Lymphocytes Abs 1.1 0.9 - 3.2 x10(3)/[facility] LABORATORY Monocyte % 9.3 % [facility] Monocyte Abs 0.7 0.3 - 0.9 x10(3)/[facility] LABORATORY Eos % 2.5 % [facility] Eosinophils Abs 0.2 0.0 - 0.4 x10(3)/[facility] LABORATORY Basophil % 0.3 % [facility] Baso Absolute 0.0 0.0 - 0.1 x10(3)/[facility] LABORATORY Immature Gran % 0.50 % [facility] Comment: Immature granulocytes(IG's)percentage and absolute count will include metamyelocytes, myelocytes, and promyelocytes. Blood smears from CBCs yielding IG's will be scanned manually for concordance. If this scan disagrees with the automated IG or if promyelocytes are noted, a manual differential will be performed. Immature Gran Absolute 0.04 0.00 - 0.04 x10(3)/[facility] LABORATORY Blood 02/21/2021 1:15 AM EDT 02/21/2021 1:30 AM EDT Narrative Resulting Agency Comment Spec In Lab Charleen Colby MD HEMATOLOGY ORDERAB LES [facility] [place] [place] [address] * (ABNORMAL) Hemogram (02/21/2021 1:15 AM EDT) White Blood Cell 7.3 4.0 - 9.5 x10(3)/[facility] LABORATORY Red Blood Cell 3.93(L) 4.58 - 5.54 x10(6)/mc L [facility] Hemoglobin 11.9(L) 13.7 - 16.5 gm/dL [facility] Hematocrit 36.7(L) 40.5 - 48.5 % [facility] Mean Cell Volume 93.4(H) 82.9 - 93.1 [facility] LABORATORY Mean Cell Hemoglobin 30.3 27.5 - 32.1 pg [facility] Mean Cell Hemoglobin Concentration 32.4 32.0 - 35.7 gm/dL [facility] Platelet 103(L) 145 - 357 x10(3)/[facility] LABORATORY RDW Standard Deviation 46.5(H) 36.0 - 45.0 [facility] LABORATORY RDW coefficient of variation 13.6 11.4 - 13.8 % [facility] Mean Platelet Volume 9.2 7.6 - 12.9 fL [facility] NRBC% auto 0.0 % [facility] NRBC Absolute 0.000 0.000 - 0.000 x10(3)/mc L [facility] Blood 02/21/2021 1:15 AM EDT 02/21/2021 1:30 AM EDT Narrative Resulting Agency Comment Spec In Lab Charleen Colby MD HEMATOLOGY ORDERAB LES [facility] [place] [address] * (ABNORMAL) Basic Metabolic Panel (non-fasting) (02/21/2021 1:15 AM EDT) Glucose 100 65 - 199 mg/dL [facility] Comment:Diabetes: >=200 mg/d L plus symptoms Blood Urea Nitrogen 7(L) 10 - 20 mg/dL [facility] Creatinine 0.73(L) 0.80 - 1.50 mg/dL [facility] Sodium 141 135 - 145 mmol/L [facility] Potassium 3.6 3.5 - 5.0 mmol/L [facility] Comment: Please note: ??Patients with WBC >100,000 may have falsely elevated Potassium levels. ??For accurate Potassium quantification in these patients send serum separator tube (gold top) for subsequent determinations. ??Contact the Clinical Chemistry Laboratory if there are any questions. Chloride 106 98 - 107 mmol/L [facility] Carbon Dioxide 27 22 - 31 mmol/L [facility] Anion Gap 8 5 - 15 mmol/L [facility] Calcium 8.4(L) 8.5 - 10.5 mg/dL [facility] Est Glomerular Filtration Rate 91 >=60 mL/min/1. 73 m?? [facility] Comment: This patient? s estimated glomerular [...] In Lab Eduard Luu MD CHEMISTRY ORDERABLES [facility] [place] [address] * (ABNORMAL) Differential, Automated (02/20/2021 11:55 AM EDT) Neutrophil % 82.3 % [facility] Neutrophil Absolute 7.60(H) 1.70 - 6.10 x10(3)/mc L [facility] Lymph % 9.6 % [facility] Lymphocytes Abs 0.9 0.9 - 3.2 x10(3)/mc L [facility] Monocyte % 6.1 % [facility] Monocyte Abs 0.6 0.3 - 0.9 x10(3)/mc L [facility] Eos % 1.3 % [facility] Eosinophils Abs 0.1 0.0 - 0.4 x10(3)/mc L [facility] Basophil % 0.3 % [facility] Baso Absolute 0.0 0.0 - 0.1 x10(3)/mc L [facility] Immature Gran % 0.40 % [facility] Comment: Immature granulocytes(IG's)percentage and absolute count will include metamyelocytes, myelocytes, and promyelocytes. Blood smears from CBCs yielding IG's will be scanned manually for concordance. If this scan disagrees with the automated IG or if promyelocytes are noted, a manual differential will be performed. Immature Gran Absolute 0.04 0.00 - 0.04 x10(3)/mc L [facility] Blood 02/20/2021 11:5 5 AM EDT 02/20/2021 12:05 PM EDT Narrative Resulting Agency Comment Spec In Lab Nj Kimball KENO ATTENDANT HEMATOLOGY ORDERABLE S [facility] [place] [address] * (ABNORMAL) Hemogram (02/20/2021 11:55 AM EDT) White Blood Cell 9.2 4.0 - 9.5 x10(3)/mc L [facility] Red Blood Cell 4.00(L) 4.58 - 5.54 x10(6)/mc L [facility] Hemoglobin 12.5(L) 13.7 - 16.5 gm/dL [facility] Hematocrit 37.0(L) 40.5 - 48.5 % [facility] Mean Cell Volume 92.5 82.9 - 93.1 [facility] LABORATORY Mean Cell Hemoglobin 31.3 27.5 - 32.1 pg [facility] Mean Cell Hemoglobin Concentration 33.8 32.0 - 35.7 gm/dL [facility] Platelet 132(L) 145 - 357 x10(3)/mc L [facility] RDW Standard Deviation 46.2(H) 36.0 - 45.0 [facility] LABORATORY RDW coefficient of variation 13.6 11.4 - 13.8 % [facility] Mean Platelet Volume 9.1 7.6 - 12.9 [facility] LABORATORY NRBC% auto 0.0 % [facility] NRBC Absolute 0.000 0.000 - 0.000 x10(3)/mc L [facility] Blood 02/20/2021 11:5 5 AM EDT 02/20/2021 12:05 PM EDT Narrative Resulting Agency Comment Spec In Lab Nj Kimball KENO ATTENDANT HEMATOLOGY ORDERABLE S [facility] [place] [place] [address] * (ABNORMAL) Basic Metabolic Panel (non-fasting) (02/20/2021 11:55 AM EDT) Glucose 116 65 - 199 mg/dL [facility] Comment:Diabetes: >=200 mg/d L plus symptoms Blood Urea Nitrogen 5(L) 10 - 20 mg/dL [facility] Creatinine 0.58(L) 0.80 - 1.50 mg/dL [facility] Sodium 141 135 - 145 mmol/L [facility] Potassium 3.7 3.5 - 5.0 mmol/L [facility] Comment: Please note: ??Patients with WBC >100,000 may have falsely elevated Potassium levels. ??For accurate Potassium quantification in these patients send serum separator tube (gold top) for subsequent determinations. ??Contact the Clinical Chemistry Laboratory if there are any questions. Chloride 106 98 - 107 mmol/L [facility] Carbon Dioxide 28 22 - 31 mmol/L [facility] Anion Gap 7 5 - 15 mmol/L [facility] Calcium 8.4(L) 8.5 - 10.5 mg/dL [facility] Est Glomerular Filtration Rate 100 >=60 mL/min/1. 73 m?? [facility] Comment: This patient? s estimated glomerular [...] Agency Comment Spec In Lab Nj Kimball KENO ATTENDANT CHEMISTRY ORDERABLES Performing Organization Address City/[facility] Co de Phone Number [facility] [place] [address] * Phosphorus (02/20/2021 11:55 AM EDT) Phosphorus 2.9 2.5 - 4.5 mg/dL [facility] Blood 02/20/2021 11:5 5 AM EDT 02/20/2021 12:05 PM EDT Narrative Resulting Agency Comment Spec In Lab Nj Kimball KENO ATTENDANT CHEMISTRY ORDERABLES Performing Organization Address [facility] Co de Phone Number [facility] [place] [address] * Magnesium (02/20/2021 11:55 AM EDT) Magnesium 0.74 0.69 - 1.07 mmol/L [facility] Blood 02/20/2021 11:5 5 AM EDT 02/20/2021 12:05 PM EDT Narrative Resulting Agency Comment Spec In Lab Nj Kimball KENO ATTENDANT CHEMISTRY ORDERABLES Performing Organization Address [facility] Co de Phone Number [facility] [place] [address] * Duplex Study for DVT, Bilat legs (02/20/2021 11:46 AM EDT) VB Text Report Department: Vascular Surgery Lab Patient: [id number] (NARCISA EDUARDO) CPT: 76400 ICD10: R60.0 Referring Physician: NJ KIMBALL ?? [...] 02/20/2021 11:4 6 AM EDT Nj Kimball KENO ATTENDANT VASCULAR ORDERABLES [facility]AS[facility] * XR Fluoro Barium [...] who have questions please contact the health cna caregiver that requested your imaging first. ? Narrative 02/20/2021 1:19 PM EDT EXAMINATION: XR [...] patients who have questions please contactthe health cna caregiver that requested your imaging first. Feliciano Estrada MD IMG FLUORO ORDERABL ES * ECHO COMPLETE (02/19/2021 4:17 PM EDT) EF 64 HEARTLAB SYSTEM Anatomical Region Laterality Modality Other 02/19/2021 Narrative 02/19/2021 4:32 PM EDT Procedure: ?Transthoracic Echocardiogram Patient: ?JAYCE NARCISA ?(Age): 1945(75y) Med Rec#: ? [id number] ?Sex: ?M ? Site Loc: ? [facility] [place] ?Ht / Wt: ??177(cm)/62(kg) Pt. Loc: ?Adult Floor ? BSA: ?1.77 Study Date: ?? 02/19/2021 ?Pt. Type: Inpatient Tape: ? Referring: DOMINIQUE Reading: Naty Granados ([id number]) Electrical Logging Operator: Kylie Castanon [facility] Diagnosis: *Syncope and collapse (R55) Rhythm: ? [...] Vmax ?0.71 ? m/sec ? MV deceleration [id number] ? msec ? MV A-wave Vmax ?0.9 [...] ? Mid-Inferior ?Normal ? Mid-Inferoseptal ?Normal ? [place]-Septal ? Normal ? [place]-Anterior ? Normal ? [place]-Lateral ?Normal ? [place]-Inferior ? Normal ? [place]-Tip ?Normal ? This report has been electronically signed by: Naty Granados MD ? 02/19/2021 16:32:03 Images reviewed and interpretation verified [facility] Cardiac Ultrasound Laboratory Procedure Note Naty Granados MD - 02/19/2021 Procedure: Transthoracic Echocardiogram Patient: JAYCE SOARES(Age): 1945(75y) Med Rec#: [id number] Sex: M Site Loc: [facility] [place] Ht / Wt: 177(cm)/62(kg) Pt. Loc: Adult Floor BSA: 1.77 Study Date: 02/19/2021 Pt. Type: Inpatient Tape: Referring: DOMINIQUE Reading: Naty Granados ([id number]) Electrical Logging Operator: Kylie Castanon RDCS, SUSAN Diagnosis: *Syncope and [...] MV E-wave Vmax 0.71 m/sec MV deceleration [id number] msec MV A-wave Vmax 0.9 m/sec MV [...] Normal Mid-Posterolateral Normal Mid-Inferior Normal Mid-Inferoseptal Normal [place]-Septal Normal [place]-Anterior Normal [place]-Lateral Normal [place]-Inferior Normal [place]-Tip Normal This report has been electronically signed by: Naty Granados MD 02/19/2021 16:32:03 Images reviewed and interpretation verified [facility] Cardiac Ultrasound Laboratory Nj Kimball KENO ATTENDANT ECHO ORDERABLES * Carotid Duplex, Bilateral (02/19/2021 8:50 AM EDT) VB Text Report Department: Vascular Surgery Lab Patient: [id number] (NARCISA EDUARDO) CPT: 18682 ICD10: R55 Referring Physician: NJ KIMBALL ?? [...] 12:40 AM EDT) Neutrophil % 81.8 % [facility] Neutrophil Absolute 9.35(H) 1.70 - 6.10 x10(3)/mc L [facility] Lymph % 9.7 % [facility] Lymphocytes Abs 1.1 0.9 - 3.2 x10(3)/mc L [facility] Monocyte % 6.6 % [facility] Monocyte Abs 0.8 0.3 - 0.9 x10(3)/mc L [facility] Eos % 1.0 % [facility] Eosinophils Abs 0.1 0.0 - 0.4 x10(3)/ L [facility] Basophil % 0.3 % [facility] Baso Absolute 0.0 0.0 - 0.1 x10(3)/[facility] LABORATORY Immature Gran % 0.60 % [facility] Comment: Immature granulocytes(IG's)percentage and absolute count will include metamyelocytes, myelocytes, and promyelocytes. Blood smears from CBCs yielding IG's will be scanned manually for concordance. If this scan disagrees with the automated IG or if promyelocytes are noted, a manual differential will be performed. Immature Gran Absolute 0.07(H) 0.00 - 0.04 x10(3)/[facility] LABORATORY Blood 02/19/2021 12:4 0 AM EDT 02/19/2021 12:50 AM EDT Narrative Resulting Agency Comment Spec In Lab Tayler Lopes MD HEMATOLOGY ORDERABLE S Performing Organization Address City/State/[facility] Co de Phone Number [facility] [place] [phone] * (ABNORMAL) Hemogram (02/19/2021 12:40 AM EDT) White Blood Cell 11.4(H) 4.0 - 9.5 x10(3)/[facility] LABORATORY Red Blood Cell 3.95(L) 4.58 - 5.54 x10(6)/[facility] LABORATORY Hemoglobin 12.1(L) 13.7 - 16.5 gm/dL [facility] Hematocrit 36.7(L) 40.5 - 48.5 % [facility] Mean Cell Volume 92.9 82.9 - 93.1 fL [facility] Mean Cell Hemoglobin 30.6 27.5 - 32.1 pg [facility] Mean Cell Hemoglobin Concentration 33.0 32.0 - 35.7 gm/dL [facility] Platelet 111(L) 145 - 357 x10(3)/mc L [facility] RDW Standard Deviation 46.3(H) 36.0 - 45.0 fL [facility] RDW coefficient of variation 13.5 11.4 - 13.8 % [facility] Mean Platelet Volume 9.0 7.6 - 12.9 [facility] LABORATORY NRBC% auto 0.0 % [facility] NRBC Absolute 0.000 0.000 - 0.000 x10(3)/mc L [facility] Blood 02/19/2021 12:4 0 AM EDT 02/19/2021 12:50 AM EDT Narrative Resulting Agency Comment Spec In Lab Tayler Lopes MD HEMATOLOGY ORDERABLE S Performing Organization Address City/[facility]/ZIP Co de Phone Number [facility] [place] [address] * Magnesium (02/19/2021 12:40 AM EDT) Magnesium 0.73 0.69 - 1.07 mmol/L [facility] Blood 02/19/2021 12:4 0 AM EDT 02/19/2021 12:50 AM EDT Narrative Resulting Agency Comment Spec In Lab Feliciano Estrada MD CHEMISTRY ORDERABLE S Performing Organization Address City/[facility]/ZIP Co de Phone Number [facility] [place] [address] * (ABNORMAL) Basic Metabolic Panel (non-fasting) (02/19/2021 12:40 AM EDT) Glucose 90 65 - 199 mg/dL [facility] Comment:Diabetes: >=200 mg/d L plus symptoms Blood Urea Nitrogen 4(L) 10 - 20 mg/dL [facility] Creatinine 0.67(L) 0.80 - 1.50 mg/dL [facility] Sodium 140 135 - 145 mmol/L [facility] Potassium 3.3(L) 3.5 - 5.0 mmol/L [facility] Comment: Please note: ??Patients with WBC >100,000 may have falsely elevated Potassium levels. ??For accurate Potassium quantification in these patients send serum separator tube (gold top) for subsequent determinations. ??Contact the Clinical Chemistry Laboratory if there are any questions. Chloride 103 98 - 107 mmol/L [facility] Carbon Dioxide 30 22 - 31 mmol/L [facility] Anion Gap 7 5 - 15 mmol/L [facility] Calcium 8.7 8.5 - 10.5 mg/dL [facility] Est Glomerular Filtration Rate 94 >=60 mL/min/1. 73 m?? [facility] Comment: This patient? s estimated glomerular [...] Lab Feliciano Estrada MD CHEMISTRY ORDERABLE S [facility] [place] [address] * (ABNORMAL) CT Chest Abdomen Pelvis wo [...] who have questions please contact the health cna caregiver that requested your imaging first. ? Narrative 02/18/2021 11:49 PM EDT EXAMINATION: CT [...] who have questions please contact the health cna caregiver that requested your imaging first. ? Narrative [...] patients who have questions please contactthe health cna caregiver that requested your imaging first. Alex Carrillo [...] who have questions please contact the health cna caregiver that requested your imaging first. ? Narrative 02/18/2021 11:49 PM EDT EXAMINATION: CT [...] who have questions please contact the health cna caregiver that requested your imaging first. ? Narrative 02/18/2021 11:49 PM EDT EXAMINATION: CT [...] No enlarged lymph nodes. Evaluation of the caemron limited by the absence of intravenous contrast. [...] who have questions please contact the health cna caregiver that requested your imaging first. ? Narrative [...] patients who have questions please contactthe health cna caregiver that requested your imaging first. Alex Carrillo MD IMG CT ORDERABLES * Valproic Acid Level, Total (02/18/2021 8:14 PM EDT) Valproic Acid <3 mg/L [facility] Comment: Therapeutic Range: Anticonvulsant Therapy: ??50-100 mg/L Manic Episodes Associated with Bipolar Disorder: ??50-125 mg/L Blood Venous Draw / Unknown 02/18/2021 8:14 PM EDT 02/19/2021 7:23 AM EDT Narrative Resulting Agency Comment Spec In Lab Tayler Lopes MD CHEMISTRY ORDERABLES [facility] [place] [address] * (ABNORMAL) Rapid Drug Screen w/o Confirmation, Urine (02/18/2021 8:14 PM EDT) Barbiturates Screen, Urine None Detected None Detected [facility] Comment: The barbiturate screen detects barbiturates [...] Benzodiazepines Screen, Urine None Detected None Detected [facility] Comment: The benzodiazepines screen detects benzodiazepines [...] Cocaine Screen, Urine None Detected None Detected [facility] Comment: The cocaine metabolites screen detects benzoylecgonine (Cocaine Metabolite) at concentrations >150 ng/mL. A ? Presumptive Positive? result indicates that the screening result was positive but has not yet been confirmed by a highly-specific method. As with any screen, occasional false positive results from cross-reacting substances may occur. Not for Medico-Legal Purposes. Methadone Metabolites Screen, Urine None Detected None Detected [facility] Comment: The methadone metabolite screen detects EDDP (major methadone metabolite) at concentrations >100 ng/mL. A ? Presumptive Positive? result indicates that the screening result was positive but has not yet been confirmed by a highly-specific method. As with any screen, occasional false positive results from cross-reacting substances may occur. Not for Medico-Legal Purposes. Opiate Screen, Urine Presumptive Pos(A) None Detected [facility] Comment: The opiates screen detects opiates [...] Cannabinoid Screen, Urine None Detected None Detected [facility] Comment: The marijuana metabolites screen detects the THC metabolite (26-icg-5-carboxy-delta 9-THC) at concentrations >20 ng/mL. A ? Presumptive Positive? result indicates that the screening result was positive but has not yet been confirmed by a highly-specific method. As with any screen, occasional false positive results from cross-reacting substances may occur. Not for Medico-Legal Purposes. Oxycodone Screen, Urine None Detected None Detected [facility] Comment: The oxycodone screen detects oxycodone and oxymorphone at concentrations >100 ng/mL. A ? Presumptive Positive? result indicates that the screening result was positive but has not yet been confirmed by a highly-specific method. As with any screen, occasional false positive results from cross-reacting substances may occur. Not for Medico-Legal Purposes. Buprenorphine Screen, Urine None Detected None Detected [facility] Comment: The buprenorphine screen detects buprenorphine at concentrations >5 ng/mL. A ? Presumptive Positive? result indicates that the screening result was positive but has not yet been confirmed by a highly-specific method. As with any screen, occasional false positive results from cross-reacting substances may occur. Not for Medico-Legal Purposes. Fentanyl Screen, Urine None Detected None Detected [facility] Comment: The fentanyl screen detects fentanyl at concentrations >2 ng/mL. A ? Presumptive Positive? result indicates that the screening result was positive but has not yet been confirmed by a highly-specific method. As with any screen, occasional false positive results from cross-reacting substances may occur. Not for Medico-Legal Purposes. Tricyclics Screen, Urine None Detected None Detected [facility] Comment: The tricyclics screen detects tricyclic [...] Ethanol Screen, Urine None Detected None Detected [facility] Comment:This urine ethanol a ssay detects ethanol at concentrations >/= 100 mg/L. Amphetamines Screen, Urine None Detected None Detected [facility] Comment: The amphetamine screen detects d-amphetamine and d-methamphetamine at concentrations >300 ng/mL. A ? Presumptive Positive? result indicates that the screening result was positive but has not yet been confirmed by a highly-specific method. As with any screen, occasional false positive results from cross-reacting substances may occur. Not for Medico-Legal Purposes. Adulterants Screen, Urine None Detected None Detected [facility] Comment: No adulteration or dilution of this urine sample was detected. All urine samples submitted for urine drugs of abuse analysis are tested for creatinine concentration, pH, and for the presence of oxidants, nitrites, and chromate. Urine 02/18/2021 8:14 PM EDT 02/18/2021 8:27 PM EDT Narrative Resulting Agency Comment Spec In Lab Feliciano Estrada MD CHEMISTRY ORDERABLE S Performing Organization Address [facility]/ZIP Co de Phone Number [facility] [place] [address] * Rapid Drug Screen, Urine (CHRIS Request) (02/18/2021 8:14 PM EDT) CHRIS Conf Requested No [facility] CHRIS Requested See Comment [facility] Comment:Refer to Rapid Drug Screen w/o Confirmation, Urine for results. Urine 02/18/2021 8:14 PM EDT 02/18/2021 8:27 PM EDT Narrative Resulting Agency Comment Spec In Lab Alex Carrillo MD URINE ORDERABLES Performing Organization Address [facility] Co de Phone Number [facility] [place] [address] * Lacosamide Level (02/18/2021 8:13 PM EDT) Lacosamide Level (DECEMBER) 8.7 1.0 - 10.0 mcg/mL [facility] Comment: ADDITIONAL INFORMATION This test was developed and its performance characteristics determined by [facility] in a manner consistent with CLIA requirements. This test has not been cleared or approved by the U.S. Food and Drug Administration. Test Performed by: [facility] - [address] [address] Aircraft Mechanic: Russel Clemons M.D. Ph.D.; CLIA# [id number] Blood Venous Draw / Unknown 02/18/2021 8:13 PM EDT 02/19/2021 9:42 AM EDT Narrative Resulting Agency Comment Spec In Lab Tayler Lopes MD LAB SEND OUT ORDERAB LES Performing Organization Address [facility] Co de Phone Number [facility] [place] [place] [address] * Valproic Acid Level, Total (02/18/2021 8:13 PM EDT) [facility] Valproic Acid Not Perf mg/L [facility] Comment: cancelled by floor Called by: domenic, Read back by: Michael Mansfield, Date/Time:02/19/21 05:35. Therapeutic Range: Anticonvulsant Therapy: ??50-100 mg/L Manic Episodes Associated with Bipolar Disorder: ??50-125 mg/L Blood Venous Draw / Unknown 02/18/2021 8:13 PM EDT 02/18/2021 8:52 PM EDT Narrative Resulting Agency Comment Spec In Lab Tayler Lopes MD CHEMISTRY ORDERABLES Performing Organization Address [facility] de Phone Number [facility] [place] [address] * Type and Screen Validity (02/18/2021 8:13 PM EDT) [facility] T&S only valid at [facility] LABORATORY Comment:This Type and Screen result is only valid at the [facility] Blood 02/18/2021 8:13 PM EDT 02/18/2021 8:19 PM EDT Narrative Resulting Agency Comment Spec In Lab Feliciano Estrada MD BLOOD BANK LAB ORDE CHRISTEN Performing Organization Address [facility] Co de Phone Number [facility] [place] [address] * (ABNORMAL) Urine culture (02/18/2021 8:13 PM EDT) [facility] Urine Culture Greater than 100,000 cfu/ml Klebsiella species : two morphologies(A ) [facility] Organism Klebsiella species(A) [facility] Organism Klebsiella species(A) [facility] Clean Catch Urine 02/18/2021 8:13 PM [...] Klebsiella species Trimethoprim/Sulfa VITEK 2 METHOD Sensitive Feliciano Estrada MD MICROBIOLOGY - GENE RAL ORDERABLES Performing Organization Address City/[facility]/ZIP Co de Phone Number [facility] [place] [address] * (ABNORMAL) Urinalysis Microscopic Exam (02/18/2021 8:13 PM EDT) RBC, Urine 41(H) 0 - 3 /HPF [facility] WBC, Urine 46(H) 0 - 3 /HPF [facility] Bacteria, Urine Many(A) None /HPF [facility] Squamous Epithelial Cells Raw Data, Urine 1 <=4 /HPF [facility] Hyaline Casts, Urine 34(H) 0 - 2 /LPF [facility] Clean Catch Urine 02/18/2021 8:13 PM EDT 02/18/2021 8:27 PM EDT Narrative Resulting Agency Comment Spec In Lab Feliciano Estrada MD URINE ORDERABLES Performing Organization Address City/[facility]/ZIP Co de Phone Number [facility] [place] [address] * AB[facility] Recheck Status (02/18/2021 8:13 PM EDT) [facility] Recheck Order Order Placed [facility] Type Recheck Complete [facility] Blood 02/18/2021 8:13 PM EDT 02/18/2021 8:19 PM EDT Narrative Resulting Agency Comment Spec In Lab Feliciano Estrada MD BLOOD BANK LAB ORDE RABLES Performing Organization Address City/[facility]/ZIP Co de Phone Number [facility] [place] [address] * Gold Tube HOLD (02/18/2021 8:13 PM EDT) Gold Hold Sample in lab. [facility] Blood Venous Draw / Unknown 02/18/2021 8:13 PM EDT 02/18/2021 8:26 PM EDT Feliciano Estrada MD CHEMISTRY ORDERABLE S [facility] [place] [address] * (ABNORMAL) Differential, Automated (02/18/2021 8:13 PM EDT) Neutrophil % 81.8 % [facility] Neutrophil Absolute 8.43(H) 1.70 - 6.10 x10(3)/[facility] LABORATORY Lymph % 9.8 % [facility] Lymphocytes Abs 1.0 0.9 - 3.2 x10(3)/[facility] LABORATORY Monocyte % 6.3 % [facility] Monocyte Abs 0.6 0.3 - 0.9 x10(3)/[facility] LABORATORY Eos % 1.1 % [facility] Eosinophils Abs 0.1 0.0 - 0.4 x10(3)/[facility] LABORATORY Basophil % 0.4 % [facility] Baso Absolute 0.0 0.0 - 0.1 x10(3)/[facility] LABORATORY Immature Gran % 0.60 % [facility] Comment: Immature granulocytes(IG's)percentage and absolute count will include metamyelocytes, myelocytes, and promyelocytes. Blood smears from CBCs yielding IG's will be scanned manually for concordance. If this scan disagrees with the automated IG or if promyelocytes are noted, a manual differential will be performed. Immature Gran Absolute 0.06(H) 0.00 - 0.04 x10(3)/ L [facility] Blood 02/18/2021 8:13 PM EDT 02/18/2021 8:26 PM EDT Narrative Resulting Agency Comment Spec In Lab Feliciano Estrada MD HEMATOLOGY ORDERABL ES Performing Organization Address City/[facility]/ZIP Co de Phone Number [facility] [place] [address] * (ABNORMAL) Hemogram (02/18/2021 8:13 PM EDT) White Blood Cell 10.3(H) 4.0 - 9.5 x10(3)/mc L [facility] Red Blood Cell 3.77(L) 4.58 - 5.54 x10(6)/mc L [facility] Hemoglobin 11.7(L) 13.7 - 16.5 gm/dL [facility] Hematocrit 34.8(L) 40.5 - 48.5 % [facility] Mean Cell Volume 92.3 82.9 - 93.1 fL [facility] Mean Cell Hemoglobin 31.0 27.5 - 32.1 pg [facility] Mean Cell Hemoglobin Concentration 33.6 32.0 - 35.7 gm/dL [facility] Platelet 111(L) 145 - 357 x10(3)/mc L [facility] RDW Standard Deviation 46.0(H) 36.0 - 45.0 fL [facility] RDW coefficient of variation 13.5 11.4 - 13.8 % [facility] Mean Platelet Volume 9.1 7.6 - 12.9 fL [facility] NRBC% auto 0.0 % [facility] NRBC Absolute 0.000 0.000 - 0.000 x10(3)/mc L [facility] Blood 02/18/2021 8:13 PM EDT 02/18/2021 8:26 PM EDT Narrative Resulting Agency Comment Spec In Lab Feliciano Estrada MD HEMATOLOGY ORDERABL ES [facility] [place] [address] * Antibody screen (02/18/2021 8:13 PM EDT) Ab Screen Interp Negative [facility] Expires at [id number] on: 02/21/2021 [facility] Blood 02/18/2021 8:13 PM EDT 02/18/2021 8:19 PM EDT Narrative Resulting Agency Comment Spec In Lab Feliciano Estrada MD BLOOD BANK LAB ORDJannette VELÁSQUEZ [facility] [place] [address] * ABO/Rh Typing (02/18/2021 8:13 PM EDT) Pathologist [facility] ABORH Type A Pos [facility] Blood 02/18/2021 8:13 PM EDT 02/18/2021 8:19 PM EDT Narrative Resulting Agency Comment Spec In Lab Feliciano Estrada MD BLOOD BANK LAB ORDJannette VELÁSQUEZ Performing Organization Address City/[facility]/ZIP Co de Phone Number [facility] [place] [address] * (ABNORMAL) Urinalysis with reflex Culture (02/18/2021 8:13 PM EDT) [facility] Glucose, Urine Dipstick Negative Negative mg/dL [facility] Protein, Urine Dipstick Trace(A) Negative mg/dL [facility] Bilirubin, Urine Dipstick Negative Negative mg/dL [facility] Comment: Clinical correlation required for positive Urine Bilirubin results as false positive may occur with some drugs and drug related products. If a false positive is suspected a serum total bilirubin should be considered if clinically indicated. Urobilinogen, Urine Dipstick Normal Normal mg/dL [facility] pH, Urn (dipstick) 8.0 5.0 - 8.0 [facility] Blood, Urine Dipstick Moderate(A) Negative mg/dL [facility] Ketone, Urine Dipstick Negative Negative mg/dL [facility] Nitrite, Urine Dipstick Positive(A) Negative [facility] Leukocytes, Urine Dipstick Moderate(A) Negative [facility] LABORATORY Appearance, Urine Dipstick Cloudy(A) Clear [facility] Specific [place] Urine Automated 1.011 1.005 - 1.030 [facility] Color, Urine Dipstick Yellow Yellow [facility] Reflex to Culture Yes [facility] Clean Catch Urine 02/18/2021 8:13 PM EDT 02/18/2021 8:27 PM EDT Narrative Resulting Agency Comment Spec In Lab Alex Carrillo MD URINE ORDERABLES Performing Organization Address [facility] Co de Phone Number [facility] [address] * Ethanol Level (02/18/2021 8:13 PM EDT) Ethanol <100 <=99 mg/L [facility] Comment: Greater than 800 mg/L (0.08%) should be considered intoxicated. 3400 to 4500 mg/L (0.34 - 0.45%) is considered severe intoxication. Greater than 5500 mg/L (0.55%) is usually fatal. Blood 02/18/2021 8:13 PM EDT 02/18/2021 8:26 PM EDT Narrative Resulting Agency Comment Spec In Lab Alex Carrillo MD CHEMISTRY ORDERABLE S Performing Organization Address [facility]/ZIP Co de Phone Number [facility] [place] [address] * APTT (02/18/2021 8:13 PM EDT) Partial Thromboplastin Time 27 25 - 37 sec [facility] Comment: The PTT is NOT appropriate for heparin monitoring. Use the Anti-Xa level for heparin monitoring (HEP UFH) or LMWH monitoring (HEP LMW). A PTT less than 37 seconds generally indicates adequate hemostasis. Blood 02/18/2021 8:13 PM EDT 02/18/2021 8:26 PM EDT Narrative Resulting Agency Comment Spec In Lab Alex Carrillo MD HEMATOLOGY ORDERABL ES Performing Organization Address [facility] de Phone Number [facility] [place] [address] * Prothrombin Time (02/18/2021 8:13 PM EDT) Prothrombin Time 11.6 9.4 - 12.5 sec [facility] International Normalization Ratio 1.0 [facility] Comment: An INR <2.0 indicates adequate [...] MD HEMATOLOGY ORDERABL ES Performing Organization Address [facility] de Phone Number [facility] [place] [address] * (ABNORMAL) Basic Metabolic Panel (non-fasting) (02/18/2021 8:13 PM EDT) Glucose 84 65 - 199 mg/dL [facility] Comment:Diabetes: >=200 mg/d L plus symptoms Blood Urea Nitrogen 5(L) 10 - 20 mg/dL [facility] Creatinine 0.65(L) 0.80 - 1.50 mg/dL [facility] Sodium 142 135 - 145 mmol/L [facility] Potassium 3.3(L) 3.5 - 5.0 mmol/L [facility] Comment: Please note: ??Patients with WBC >100,000 may have falsely elevated Potassium levels. ??For accurate Potassium quantification in these patients send serum separator tube (gold top) for subsequent determinations. ??Contact the Clinical Chemistry Laboratory if there are any questions. Chloride 106 98 - 107 mmol/L [facility] Carbon Dioxide 31 22 - 31 mmol/L [facility] Anion Gap 5 5 - 15 mmol/L [facility] Calcium 8.7 8.5 - 10.5 mg/dL [facility] Est Glomerular Filtration Rate 95 >=60 mL/min/1. 73 m?? [facility] Comment: This patient? s estimated glomerular [...] Lab Alex Carrillo MD CHEMISTRY ORDERABLE S [facility] [place] [address] * (ABNORMAL) BLOOD GAS 2 VENOUS (02/18/2021 8:09 PM EDT) pH, Venous 7.45(H) 7.32 - 7.42 [facility] PCO2, Venous 46 41 - 51 mmHg [facility] PO2, Venous 38 25 - 40 mmHg [facility] Bicarbonate, Venous 30.9 mmol/L [facility] Base Excess, Venous 6.8 mmol/L [facility] Hgb Blood Gas 12.3(L) 13.7 - 16.5 gm/dL [facility] Oxyhemoglobin, Venous 70.9 % [facility] Carboxyhemoglob in, Venous 2.2 % [facility] Comment: Nonsmokers: 0.5-1.5% COHB Smokers: Variable, but usually less than 10% Toxic: 20-30% COHB Lethal: Greater than 60% COHB Methemoglobin, Venous 0.7 <=1.5 % [facility] Na Whole Blood 136 135 - 145 mmol/L [facility] K Whole Blood 3.2(L) 3.5 - 5.0 mmol/L [facility] Comment: Please note: Patients with WBC >100,000 may have falsely elevated Potassium levels. Contact the Clinical Chemistry Laboratory if there are any questions. ICa Whole Blood 1.17 1.15 - 1.33 mmol/L [facility] Comment: Note: ??Total bilirubin higher than 20 mg/dL may lead to falsely low ionized calcium. CL Whole Blood 103 98 - 107 mmol/L [facility] Gluc Whole Bld 84 65 - 199 mg/dL [facility] Comment:Diabetes: >=200 mg/d L plus symptoms Lactate WB 1.0 0.5 - 2.2 mmol/L [facility] Blood Gas Source Venous [facility] Blood 02/18/2021 8:09 PM EDT 02/18/2021 8:[address] Peggy Hein MD POINT OF CARE TEST O RDERABLES [facility] [place] [address] * XR Chest AP and Pelvis AP [...] who have questions please contact the health cna caregiver that requested your imaging first. ? Narrative 02/18/2021 8:40 PM EDT EXAMINATION: XR [...] patients who have questions please contactthe health cna caregiver that requested your imaging first. Alex Carrillo MD IMG DX ORDERABLES * Film Library- Storage Only DX Upper Extremity (02/18/2021 4:57 PM EDT) Narrative [facility] - 02/18/2021 4:57 PM EDT This exam is auto-finalizing. It's purpose is for storage only. Eduard Luu MD [facility] FILM LIBRARY ORD ERABLES Performing Organization Address [facility] de Phone Number [place], [place] * Film Library- Storage Only DX Chest (02/18/2021 4:56 PM EDT) Narrative [facility] - 02/18/2021 4:56 PM EDT This exam is auto-finalizing. It's purpose is for storage only. Eduard Luu MD [facility] FILM LIBRARY ORD ERABLES Performing Organization Address [facility] de Phone Number [place], [place] * Film Library- Storage Only CT Head And Spine (02/18/2021 4:55 PM EDT) Narrative [facility] - 02/18/2021 4:55 PM EDT This exam is auto-finalizing. It's purpose is for storage only. Eduard Luu MD [facility] FILM LIBRARY ORD ERABLES Performing Organization Address [facility] de Phone Number [place], [place] documented in this encounter Visit Diagnoses [...] Reason: Patient/family refused)1200 (Not Given - Provider: eTresa Cottrell LPN - Reason: Patient/family refused - [...] Routine documented in this encounter Care Teams Hopper Attendant Relationship Specialty Start Date End Date Alfredo Montoya DO [address] [place] [id number] PCP - General Internal Medicine 12/04/19 04/27/23 documented as of this encounter
--- OUTSIDE RECORDS SUMMARY | 2024-07-07 22:34 | XMS_ITS | Encounter Summary ---
Author Organization [facility] Address [facility] [place] [address] Care Team Providers Care Med Asst Name Role Phone Alfredo Montoya DO Primary Care Provider [phone]- [phone] Encounter Details Date Type Department Care Team (Late Contact Info) Description 07/15/2020 Orders Only Radiation Oncology at [address] [phone] Que Evans MD [address] [place] [address] [place] [address] Malignant neoplasm of prostate Social History Tobacco Use Types Packs/Day Years Used Date Smoking Tobacco: Every Day Cigarettes 1 60.9 Started: 1963 Smokeless Tobacco: Never Alcohol Use [...] EDT Office Visit Radiation Oncology at [address] [phone] Taya De La Vega PA [facility] DR HEMATOLOGY [place] [address] 11/13/2024 2:00 PM EDT Office Visit Hematology/Oncology at [address] [phone] Kirt Kennedy MD [facility] DR HEMATOLOGY [place] [address] Alem Lazaro APRN [address] [place] [address] DR HEMATOLOGY [place] [address] documented as of this encounter Visit Diagnoses Diagnosis Malignant neoplasm of prostate documented in this encounter Care Teams Med Asst Relationship Specialty Start Date End Date Alfredo Montoya DO [address] [place] [id number] PCP - General Internal Medicine 12/04/19 04/27/23 documented as of this encounter
--- OUTSIDE RECORDS SUMMARY | 2024-07-07 22:34 | XMS_ITS | Encounter Summary ---
Author Organization [facility] [place] [address] Care Team Providers Care Doweler Name Role Phone Alfredo Montoya DO Primary Care Provider [phone] Encounter Details Date Type Department Care Team (Late st Contact Info) Description 04/11/2020 10:15 AM EDT Office Visit Radiation Oncology at [address] [phone] Que Evans MD [address] [place] [address] [place] [address] Malignant neoplasm of prostate Social [...] 04/11/20 Que Evans MD, MS Radiation Oncology [facility] [phone] (paging aerial tram operator) Pager #[phone] PATIENT IDENTIFICATION Name Narcisa Eduardo Date of [...] EDT Office Visit Radiation Oncology at [address] [phone] Taya De La Vega PA [facility] HEMATOLOGY [place] [address] 11/13/2024 2:00 PM EDT Office Visit Hematology/Oncology at [address] [phone] Kirt Kennedy MD [facility] DR HEMATOLOGY [place] [address] Alem Lazaro APR[address] [place] [address] documented as of this encounter Visit Diagnoses Diagnosis Malignant neoplasm of prostate documented in this encounter Care Teams Doweler Relationship Specialty Start Date End Date Alfredo Montoya DO [address] [place] [id number] PCP - General Internal Medicine 12/04/19 04/27/23 documented as of this encounter
--- OUTSIDE RECORDS SUMMARY | 2024-07-07 22:34 | XMS_ITS | Encounter Summary ---
Author Organization [facility] Address [facility] [place] [address] Care Team Providers Care Irrigation Laborer Name Role Phone Alfredo Montoya DO Primary Care Provider [phone] Reason for Visit * - Closed Specialty Diagnoses / Procedures Referred By Rogers t Referred To Contact Procedures Film Library- Storage Only CT Head Alfredo Montoya DO [address] [place] [address] Referral ID Status Reason Start Date Expiration Date Visits Re quested Visits Authorized [id number] Closed 01/05/2021 01/05/2022 1 1 Encounter Details Date Type Department Care Team (Late st Contact Info) Description 01/05/2021 12:25 PM EDT Ancillary Procedure Radiology Library [place] [address] Alfredo Montoya DO [address] [place] [address] Social History Tobacco Use Types [...] EDT Office Visit Radiation Oncology at [address] [phone] Taya De La Vega PA [facility] DR HEMATOLOGY [place] [address] 11/13/2024 2:00 PM EDT Office Visit Hematology/Oncology at [address] [phone] Kirt Kennedy MD [facility] DR HEMATOLOGY [place] [address] Alem Lazaro APRN [address] [place] [address] DR HEMATOLOGY AND ONCOLOGY [place], [place] [id number] documented as of this encounter Procedures Procedure Name Priority Date/Time Associated Diagnosis Comments FILM LIBRARY STORAGE ONLY CT HEAD Routine 01/05/2021 12:23 PM EDT documented in this encounter Results * Film Library- Storage Only CT Head (01/05/2021 12:23 PM EDT) Narrative [facility] [place] - 01/05/2021 12:23 PM EDT This exam is auto-finalizing. It's purpose is for storage only. Alfredo Montoya DO [facility] FILM LIBRARY OR DERABLES Performing Organization Address City/State/[facility] Co de Phone Number [place], [place] documented in this encounter Visit Diagnoses Not on filedocumented in this encounter Care Teams Irrigation Laborer Relationship Specialty Start Date End Date Alfredo Montoya DO [address] [place] [id number] PCP - General Internal Medicine 12/04/19 04/27/23 documented as of this encounter
--- OUTSIDE RECORDS SUMMARY | 2024-07-07 22:34 | XMS_ITS | Encounter Summary ---
Author Organization [facility] Address [facility] [place] [address] Care Team Providers Care Price Changer Name Role Phone Alfredo Montoya DO Primary Care Provider [phone]- [phone] Reason for Visit * - Closed Specialty Diagnoses / Procedures Referred By Contaryan t Referred To Contact Procedures Film Library- Storage Only CT Head Alfredo Montoya, DO [address] [place] [address] Referral ID Status Reason Start Date Expiration Date Visits Re quested Visits Authorized [id number] Closed 12/08/2020 12/08/2021 1 1 Encounter Details Date Type Department Care Team (Late st Contact Info) Description 12/07/2020 Ancillary Procedure Radiology Library at [facility] [place] [address] Alfredo Montoya, DO [address] [place] [address] Social History Tobacco Use Types Packs/Day Years [...] EDT Office Visit Radiation Oncology at [address] [phone] Taya De La Vega PA [facility] DR HEMATOLOGY [place] [address] 11/13/2024 2:00 PM EDT Office Visit Hematology/Oncology at [address] [phone] Kirt Kennedy MD [facility] DR HEMATOLOGY [place] [address] Alem Lazaro APRN [address] [place] [address] DR HEMATOLOGY [place] [address] documented as of this encounter Procedures Procedure Name Priority Date/Time Associated Diagnosis Comments FILM LIBRARY STORAGE ONLY CT HEAD Routine 12/07/2020 12:00 AM EDT documented in this encounter Results * Film Library- Storage Only CT Head (12/07/2020 12:00 AM EDT) Narrative [facility] - 12/08/2020 12:25 PM EDT This exam is auto-finalizing. It's purpose is for storage only. Alfredo Montoya DO IMG FILM LIBRARY OR DERABLES [place], [place] documented in this encounter Visit Diagnoses Not on filedocumented in this encounter Care Teams Price Changer Relationship Specialty Start Date End Date Alfredo Montoya DO [address] [place] [phone] PCP - General Internal Medicine 12/04/19 04/27/23 documented as of this encounter
--- OUTSIDE RECORDS SUMMARY | 2024-07-07 22:34 | XMS_ITS | Encounter Summary ---
Author Organization [facility] [place] [address] Care Team Providers Care Buffing And Sueding Machine Operator Name Role Phone Alfredo Montoya DO Primary Care Provider [phone] [phone] Encounter Details Date Type Department Care Team (Late st Contact Info) Description 04/18/2020 10:00 AM EDT Office Visit Radiation Oncology at [address] [place] [phone] Que Evans MD [address] [place] [address] [place] [address] Malignant neoplasm of prostate Social [...] 04/18/20 Que Evans MD, MS Radiation Oncology [facility] [phone] (paging hammer operator) Pager #[phone] PATIENT IDENTIFICATION Name Narcisa Eduardo Date of 1945 PCP Alfredo Montoya DO Referring MD (if different) Dr. Martha Montoya (MD) 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, Gl [...] AM EDT Office Visit Radiation Oncology at [address] [phone] Taya De La Vega PA [facility] HEMATOLOGY [place] [address] 11/13/2024 2:00 PM EDT Office Visit Hematology/Oncology at [address] [phone] Kirt Kennedy MD [facility] DR HEMATOLOGY [place] [address] Alem Lazaro APRN [address] [place] [address] [place] [address] documented as of this encounter Visit Diagnoses Diagnosis Malignant neoplasm of prostate documented in this encounter Care Teams Buffing And Sueding Machine Operator Relationship Specialty Start Date End Date Alfredo Montoya DO [address] [place] [address] PCP - General Internal Medicine 12/04/19 04/27/23 documented as of this encounter
--- OUTSIDE RECORDS SUMMARY | 2024-07-07 22:34 | XMS_ITS | Encounter Summary ---
Author Organization [facility] Address [facility] [place] [address] Care Team Providers Care Kennel Supervisor Name Role Phone Alfredo Montoya DO Primary Care Provider Encounter Details Date Type Department Care Team (Late st Contact Info) Description 09/01/2020 Ancillary Procedure Radiology Library at [facility] [place] [phone] Alfredo Montoya DO [address] [place] [address] Social History Tobacco Use Types Packs/Day Years [...] EDT Office Visit Radiation Oncology at [address] [phone] Taya De La Vega PA [facility] HEMATOLOGY [place] [address] 11/13/2024 2:00 PM EDT Office Visit Hematology/Oncology at [address] [phone] Kirt Kennedy MD [facility] DR [place] [address] Alem Lazaro, CHOLO [address] [place] [address] [place] [address] documented as of this encounter Procedures Procedure Name Priority Date/Time Associated Diagnosis Comments FILM LIBRARY STORAGE ONLY CT HEAD Routine 09/01/2020 12:00 AM EST documented in this encounter Results * Film Library- Storage Only CT Head (09/01/2020 12:00 AM EST) Narrative [facility] - 10/05/2020 4:54 AM EST This exam is auto-finalizing. It's purpose is for storage only. Alfredo Montoya DO IMG FILM LIBRARY OR DERABLES Performing Organization Address City/State/[facility] Co de Phone Number [place], [place] documented in this encounter Visit Diagnoses Not on filedocumented in this encounter Care Teams Kennel Supervisor Relationship Specialty Start Date End Date Alfredo Montoya DO [address] [place] [address] PCP - General Internal Medicine 12/04/19 04/27/23 documented as of this encounter
--- OUTSIDE RECORDS SUMMARY | 2024-07-07 22:34 | XMS_ITS | Encounter Summary ---
Author Organization [facility] Address [facility] [place] [address] Care Team Providers Care Sales Merchandiser Name Role Phone Alfredo Montoya DO Primary Care Provider [phone] Reason for Visit * Reason Comments Cerebrovascular Accident Encounter Details Date Type Department Care Team (Latest Contact Info) Description 08/27/2020 6:40 PM EST Ext Surgery or Single Event Cardiology at [address] [phone] Alex Navarrete MD [facility] [place] [address] Cerebrovascular accident (CVA), unspecified mechanism Social History [...] EDT Office Visit Radiation Oncology at [address] [phone] Taya De La Vega PA [facility] [place] [address] 11/13/2024 2:00 PM EDT Office Visit Hematology/Oncology at [address] [phone] Kirt Kennedy MD [facility] DR [place] [address] Alem Lazaro APRN [address] [place] [address] DR HEMATOLOGY AND ONCOLOGY [place], [place] [address] documented as of this encounter Procedures Procedure Name Priority Date/Time Associated Diagnosis Comments HOLTER MONITOR 24 HOUR Routine 08/27/2020 documented in this encounter Results * Holter Monitor 24hr (08/27/2020) Anatomical Region Laterality Modality Other Narrative 08/27/2020 Location: [facility] Indication: ??CVA Duration of recording ? 23h59m [...] mechanism documented in this encounter Care Teams Sales Merchandiser Relationship Specialty Start Date End Date Alfredo Montoya DO [address] [place] [address] PCP - General Internal Medicine 12/04/19 04/27/23 documented as of this encounter
--- OUTSIDE RECORDS SUMMARY | 2024-07-07 22:34 | XMS_ITS | Encounter Summary ---
Author Organization [facility] [place] [address] Care Team Providers Care Port Traffic Manager Name Role Phone Alfredo Montoya DO Primary Care Provider [phone] Encounter Details Date Type Department Care Team (Late st Contact Info) Description 03/28/2020 10:00 AM EDT Office Visit Radiation Oncology at [address] [phone] Que Evans MD [address] [place] [address] DR RADIATION ONCOLOGY [place], [place] [phone] Malignant neoplasm of prostate Social History Tobacco [...] 03/28/20 Que Evans MD, MS Radiation Oncology [facility] [phone] (paging encoding machine operator) Pager #[phone] PATIENT IDENTIFICATION Name Narcisa Eduardo Date of 1945 PCP Alfredo Montoya DO Referring MD (if different) Dr. Martha Montoya ([place]) 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, Gl [...] AM EDT Office Visit Radiation Oncology at [address] [phone] Taya De La Vega PA [facility] DR [place] [address] 11/13/2024 2:00 PM EDT Office Visit Hematology/Oncology at [address] [phone] Kirt Kennedy MD [facility] DR [place] [address] Alem Lazaro APRN [address] [place] [address] DR HEMATOLOGY AND ONCOLOGY [place], [place] [address] documented as of this encounter Visit Diagnoses Diagnosis Malignant neoplasm of prostate documented in this encounter Care Teams Port Traffic Manager Relationship Specialty Start Date End Date Alfredo Montoya DO [address] [place] [address] PCP - General Internal Medicine 12/04/19 04/27/23 documented as of this encounter
--- OUTSIDE RECORDS SUMMARY | 2024-07-07 22:34 | XMS_ITS | Encounter Summary ---
Author Organization [facility] Address [facility] [place] [address] Care Team Providers Care Rodent Exterminator Name Role Phone Alfredo Montoya DO Primary Care Provider [phone] Reason for Visit * Consultation (Routine) - Closed Specialty Diagnoses / Procedures Referred By Contac t Referred To Contact Hematology and Oncology Diagnoses Follicular lymphoma, unspecified, unspecified site Follicular lymphoma, unspecified, unspecified site Procedures TREATMENT OPTIONS Alfredo Montoya DO [address] [place] [address] Kirt Kennedy MD [address] [place] [address] DR [place] [address] Referral ID Status Reason Start Date Expiration Date Visits Re quested Visits Authorized [id number] Closed 06/11/2020 06/11/2021 1 1 Encounter Details Date Type Department Care Team (Late st Contact Info) Description 06/24/2020 2:00 PM EST Office Visit Hematology/Oncology at [address] [phone] Kirt Kennedy MD [facility] DR [place] [address] Follicular lymphoma, unspecified grade, unspecified body region (Primary Dx); Malignant neoplasm of prostate Social History Tobacco Use Types Packs/Day Years Used Date Smoking Tobacco: Every Day Cigarettes 1 60.9 Started: 1964 Smokeless Tobacco: Never Alcohol Use [...] ] Yes[ X ]Site _Prostate Date___February 2020 [facility] Prior Chemotherapy: no[ ] Yes[X ] Drug: Oncologist- [place] [facility] LastTreatment: ~1 yr ago NO: YES: Claustrophobia [...] - 06/24/2020 2:00 PM [place] [address] [phone] Narcisa Eduardo is being seen for the evaluation of follicular lymphoma. Assessment & Plan: Narcisa Eduardo is a 74 y.o. male patient with a PMH of an abdominal aortic aneurysm, thoracic aortic aneurysm, hypertension, prior alcohol abuse, tobacco abuse, A stroke in early 2019 and follicular lymphoma who recently completed EBRT for localized prostate cancer who wishes to followup here in [facility] lymphoma [facility] than [facility] given the proximity to his home. He [...] Kirt Kennedy MD, MS 06/24/2020 Thoracic Oncology [facility] CC: DO Angelica Guadalupe MD HPI/Interval History/Subjective: Narcisa Eduardo is a 74 y.o. male patient with a PMH of an abdominal aortic aneurysm, thoracic aortic aneurysm, hypertension, prior alcohol abuse, tobacco abuse, A stroke in early 2019 and follicular lymphoma who recently completed EBRT for localized prostate cancer who wishes to followup here in [facility] for his lymphoma rather than [facility] the [facility] given the proximity to his home. The [...] History/Support Network: Home situation: Lives with in [facility] Employment: Tobacco use: Rolls his own cigarettes. 10/24 ppd. X30-40 years Alcohol use: Stopped drinking in 09/2019 after a stroke when he was placed on Plavix Drug use: None Loves gardening but can't do it any more. service: [employer]. [place] Era. Had Agent Johnston Exposure. 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 [facility] by Dr. Martha Castañeda - PET-CT 11/26/15 [...] 9. Personal History of Exposure to Agent Johnston No flowsheet data found. Patient Active Problem [...] cell count normal at 6.0, hemoglobin 14.7 [id number],000 absolute neutrophil count 4.6 absolute lymphocyte count [...] left inguinal node 03/18/15; taken from the [facility] pathology report - Follicular lymphoma NOTE: Sections [...] Kirt Kennedy MD, MS 06/24/2020 Thoracic Oncology [facility] documented in this encounter Plan of Treatment Upcoming Encounters Date Type Department Care Team (Late st Contact Info) Description 11/09/2024 10:30 AM EDT Office Visit Radiation Oncology at [address] [phone] Taya De La Vega PA [facility] DR [place] [address] 11/13/2024 2:00 PM EDT Office Visit Hematology/Oncology at [address] [phone] Kirt Kennedy MD [facility] DR [place] [address] Alem Lazaro APRN [address] [place] [address] DR HEMATOLOGY AND ONCOLOGY [place], [place] [address] documented as of this encounter Visit Diagnoses Diagnosis Follicular lymphoma, unspecified grade, unspecified body region- Primary Malignant neoplasm of prostate documented in this encounter Care Teams Rodent Exterminator Relationship Specialty Start Date End Date Alfredo Montoya DO [address] [place] [address] PCP - General Internal Medicine 12/04/19 04/27/23 documented as of this encounter
--- OUTSIDE RECORDS SUMMARY | 2024-07-07 22:34 | XMS_ITS | Encounter Summary ---
Author Organization [facility] [place] [address] Care Team Providers Care Pharmacy Buyer Name Role Phone Alfredo Montoya DO Primary Care Provider [phone] Encounter Details Date Type Department Care Team (Late st Contact Info) Description 03/14/2020 9:45 AM EDT Office Visit Radiation Oncology at [address] [place] [phone] Qeu Evans MD [address] [place] [address] [place] [address] Malignant neoplasm of prostate Social [...] 03/14/20 Que Evans MD, MS Radiation Oncology [facility] [phone] (paging operator lights) Pager #[phone] PATIENT IDENTIFICATION Name Narcisa Eduardo Date of 1945 PCP Alfredo Montoya DO Referring MD (if different) Dr. Martha Montoya ([place]) 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, Gl [...] EDT Office Visit Radiation Oncology at [address] [phone] Taya De La Vega PA [facility] HEMATOLOGY [place] [address] 11/13/2024 2:00 PM EDT Office Visit Hematology/Oncology at [address] [phone] Kirt Kennedy MD [facility] DR HEMATOLOGY [place] [address] Alem Lazaro APRN [address] [place] [address] DR [place] [address] documented as of this encounter Visit Diagnoses Diagnosis Malignant neoplasm of prostate documented in this encounter Care Teams Pharmacy Buyer Relationship Specialty Start Date End Date Alfredo Montoya DO [address] [place] [address] PCP - General Internal Medicine 12/04/19 04/27/23 documented as of this encounter
--- OUTSIDE RECORDS SUMMARY | 2024-07-07 22:34 | XMS_ITS | Encounter Summary ---
Author Organization [facility] [place] [address] Care Team Providers Care Master Mechanic Name Role Phone Alfredo Montoya DO Primary Care Provider [phone] Encounter Details Date Type Department Care Team (Late st Contact Info) Description 04/26/2020 10:00 AM EDT Notes Only Radiation Oncology at [address] [phone] Que Evans MD [address] [place] [address] DR RADIATION ONCOLOGY [place], [place] [phone] Social History Tobacco Use Types Packs/Day Years [...] Summary Que Evans MD, MS Radiation Oncology [facility] [phone] (paging dip lube operator) Pager #[phone] PATIENT IDENTIFICATION ?? Name Narcisa Eduardo Date of 1945 ? PCP Alfredo Montoya, DO Referring MD (if different) Dr. Martha Montoya ([place]) ? 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, [...] FOLLOWUP: Follow-up visit with Radiation Oncology in [facility] is scheduled for 07/26/20 for PSA [...] EDT Office Visit Radiation Oncology at [address] [phone] Taya De La Vega PA [facility] [place] [address] 11/13/2024 2:00 PM EDT Office Visit Hematology/Oncology at [address] [phone] Kirt Kennedy MD [facility] [place] [address] Alem Lazaro, [address] [place] [address] documented as of this encounter Visit Diagnoses Not on filedocumented in this encounter Care Teams Master Mechanic Relationship Specialty Start Date End Date Alfredo Montoya DO [address] [place] [address] PCP - General Internal Medicine 12/04/19 04/27/23 documented as of this encounter
--- OUTSIDE RECORDS SUMMARY | 2024-07-07 22:34 | XMS_ITS | Encounter Summary ---
Author Organization [facility] Address [facility] [place] [address] Care Team Providers Care Shake Backboard Notcher Name Role Phone Alfredo Montoya DO Primary Care Provider [phone] Reason for Visit * - Closed Specialty Diagnoses / Procedures Referred By Contaryan t Referred To Contact Procedures Film Library- Storage Only DX Chest Alfredo Montoya DO [address] [place] [address] Referral ID Status Reason Start Date Expiration Date Visits Re quested Visits Authorized [id number] Closed 01/05/2021 01/05/2022 1 1 Encounter Details Date Type Department Care Team (Late st Contact Info) Description 01/05/2021 12:30 PM EDT Ancillary Procedure Radiology Library [place] [facility] [address] Alfredo Montoya DO [address] [place] [address] Social History Tobacco Use Types [...] EDT Office Visit Radiation Oncology at [address] [phone] Taya De La Vega PA [facility] DR [place] [address] 11/13/2024 2:00 PM EDT Office Visit Hematology/Oncology at [address] [phone] Kirt Kennedy MD [facility] DR [place] [address] Alem Lazaro APRN [address] [place] [address] DR HEMATOLOGY AND ONCOLOGY [place], [place] [phone] documented as of this encounter Procedures Procedure Name Priority Date/Time Associated Diagnosis Comments FILM LIBRARY STORAGE ONLY DX CHEST Routine 01/05/2021 12:24 PM EDT documented in this encounter Results * Film Library- Storage Only DX Chest (01/05/2021 12:24 PM EDT) Narrative [facility] - 01/05/2021 12:24 PM EDT This exam is auto-finalizing. It's purpose is for storage only. Alfredo Montoya DO G FILM LIBRARY OR DERABLES Performing Organization Address City/State/[facility] Co de Phone Number [place], [place] documented in this encounter Visit Diagnoses Not on filedocumented in this encounter Care Teams Shake Backboard Notcher Relationship Specialty Start Date End Date Alfredo Montoya DO [address] [place] [address] PCP - General Internal Medicine 12/04/19 04/27/23 documented as of this encounter
--- OUTSIDE RECORDS SUMMARY | 2024-07-07 22:34 | XMS_ITS | Encounter Summary ---
Author Organization [facility] Address [facility] [place] [address] Care Team Providers Care Professor Of Geography Name Role Phone Alfredo Montoya DO Primary Care Provider [phone] Encounter Details Date Type Department Care Team (Late Contact Info) Description 02/18/2021 5:00 PM EDT Ancillary Procedure Radiology Library at [facility] [place] [phone] Social History Tobacco Use Types Packs/Day Years [...] EDT Office Visit Radiation Oncology at [address] [phone] Taya De La Vega PA [facility] HEMATOLOGY AND ONCOLOGY [place] [address] 11/13/2024 2:00 PM EDT Office Visit Hematology/Oncology at [address] [phone] Kirt Kennedy MD [facility] HEMATOLOGY AND ONCOLOGY [place] [address] Alem Lazaro APRN [address] [place] [address] [place] [address] documented as of this encounter Procedures Procedure Name Priority Date/Time Associated Diagnosis Comments FILM LIBRARY STORAGE ONLY CT HEAD AND SPINE STAT 02/18/2021 4:55 PM EDT documented in this encounter Results * Film Library- Storage Only CT Head And Spine (02/18/2021 4:55 PM EDT) Narrative [facility] - 02/18/2021 4:55 PM EDT This exam is auto-finalizing. It's purpose is for storage only. Eduard Luu MD IMG FILM LIBRARY ORD ERABLES [place], [place] documented in this encounter Visit Diagnoses Not on filedocumented in this encounter Care Teams Professor Of Geography Relationship Specialty Start Date End Date Alfreod Montoya DO [address] [place] [address] PCP - General Internal Medicine 12/04/19 04/27/23 documented as of this encounter
--- OUTSIDE RECORDS SUMMARY | 2024-07-07 22:34 | XMS_ITS | Encounter Summary ---
Author Organization [facility] [place] [address] Care Team Providers Care Dehydrogenation Converter Operator Name Role Phone Alfredo Montoya DO Primary Care Provider [phone] Encounter Details Date Type Department Care Team (Late st Contact Info) Description 04/04/2020 10:15 AM EDT Office Visit Radiation Oncology at [address] [place] [phone] Que Evans MD [address] [place] [address] DR RADIATION ONCOLOGY [place], [place] [phone] Malignant neoplasm of prostate Social History Tobacco [...] 04/04/20 Que Evans MD, MS Radiation Oncology [facility] [phone] (paging pipe smoking machine operator) Pager #[phone] PATIENT IDENTIFICATION Name Narcisa Eduardo Date of 1945 PCP Alfredo Montoya, Referring MD (if different) Dr. Martha Montoya ([place]) 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, Gl [...] EDT Office Visit Radiation Oncology at [address] [phone] Taya De La Vega PA [facility] HEMATOLOGY [place] [address] 11/13/2024 2:00 PM EDT Office Visit Hematology/Oncology at [address] [phone] Kirt Kennedy MD [facility] DR HEMATOLOGY [place] [address] Alem Lazaro APRN [address] [place] [address] DR [place]EM[place]Y [place] [address] documented as of this encounter Visit Diagnoses Diagnosis Malignant neoplasm of prostate documented in this encounter Care Teams Dehydrogenation Converter Operator Relationship Specialty Start Date End Date Alfredo Montoya DO [address] [place] [address] PCP - General Internal Medicine 12/04/19 04/27/23 documented as of this encounter
--- OUTSIDE RECORDS SUMMARY | 2024-07-07 22:34 | XMS_ITS | Encounter Summary ---
Author Organization [facility] Address [facility] [place] [address] Care Team Providers Care Administrative Assistant Data Entry Name Role Phone Alfredo Montoya DO Primary Care Provider [phone] Encounter Details Date Type Department Care Team (Late st Contact Info) Description 01/05/2021 Telephone Neurology at [facility] [place] [phone] Martin Daniel MD [facility] [place] [address] Social History Tobacco Use Types Packs/Day Years [...] original note were not included. Call from [facility] 75 Y M with subdural, h/o aneurysm [...] increase density. He is being managed through [facility] Discussed that he may need admission/ observation. Due to lack of beds here the physician will contact [facility] where he gets his Neurologic care. Martin Daniel MD Department of Neurology Pager # [phone] documented in this encounter Plan of Treatment Upcoming Encounters Date Type Department Care Team (Late st Contact Info) Description 11/09/2024 10:30 AM EDT Office Visit Radiation Oncology at [address] [phone] Taya De La Vega PA [facility] DR HEMATOLOGY [place] [address] 11/13/2024 2:00 PM EDT Office Visit Hematology/Oncology at [address] [phone] Kirt Kennedy MD [facility] DR HEMATOLOGY [place] [address] Alem Lazaro APRN [address] [place] [address] DR HEMATOLOGY AND ONCOLOGY [place], [place] [phone] documented as of this encounter Visit Diagnoses Not on filedocumented in this encounter Care Teams Administrative Assistant Data Entry Relationship Specialty Start Date End Date Alfredo Montoya DO [address] [place] [address] PCP - General Internal Medicine 12/04/19 04/27/23 documented as of this encounter
--- OUTSIDE RECORDS SUMMARY | 2024-07-07 22:34 | XMS_ITS | Encounter Summary ---
Author Organization [facility] Address [facility] [place] [address] Care Team Providers Care Head Of Maintenance Name Role Phone Alfredo Montoya DO Primary Care Provider Encounter Details Date Type Department Care Team (Late st Contact Info) Description 08/26/2020 12:10 AM EST Ancillary Procedure Radiology Library at [facility] [place] [address] Alfredo Montoya, DO [address] [place] [address] Social History Tobacco Use Types Packs/Day Years [...] EDT Office Visit Radiation Oncology at [address] [phone] Taya De La Vega PA [facility] HEMATOLOGY [place] [address] 11/13/2024 2:00 PM EDT Office Visit Hematology/Oncology at [address] [phone] Kirt Kennedy MD [facility] DR [place] [address] Alem Lazaro, CLAIM ATTORNEY [address] [place] [address] HEMATOLOGY AND ONCOLOGY [place], [place] [address] documented as of this encounter Procedures Procedure Name Priority Date/Time Associated Diagnosis Comments FILM LIBRARY STORAGE ONLY DX PELVIS Routine 08/26/2020 12:10 AM EST documented in this encounter Results * Film Library- Storage Only DX Pelvis (08/26/2020 12:10 AM EST) Narrative [facility] - 10/05/2020 4:53 AM EST This exam is auto-finalizing. It's purpose is for storage only. Alfredo Montoya DO [facility] FILM LIBRARY OR DERABLES Performing Organization Address City/State/[facility] Co de Phone Number [place], [place] documented in this encounter Visit Diagnoses Not on filedocumented in this encounter Care Teams Head Of Maintenance Relationship Specialty Start Date End Date Alfredo Montoya DO [address] [place] [address] PCP - General Internal Medicine 12/04/19 04/27/23 documented as of this encounter
--- OUTSIDE RECORDS SUMMARY | 2024-07-07 22:34 | XMS_ITS | Encounter Summary ---
Author Organization [facility] [place] [address] Care Team Providers Care Tutoring Clinician Name Role Phone Alfredo Montoya DO Primary Care Provider [phone] Encounter Details Date Type Department Care Team (Late st Contact Info) Description 04/25/2020 10:00 AM EDT Office Visit Radiation Oncology at [address] [place] [address] Que Evans MD [address] [place] [address] [place] [address] Malignant neoplasm of prostate Social [...] 04/25/20 Que Evans MD, MS Radiation Oncology [facility] [phone] (paging puff iron operator) Pager #[phone] PATIENT IDENTIFICATION Name Narcisa Eduardo Date of [...] EDT Office Visit Radiation Oncology at [address] [phone] Taya De La Vega PA [facility] HEMATOLOGY [place] [address] 11/13/2024 2:00 PM EDT Office Visit Hematology/Oncology at [address] [phone] Kirt Kennedy MD [facility] DR HEMATOLOGY [place] [address] Alem Lazaro APRN [address] [place] [address] [place] [address] documented as of this encounter Visit Diagnoses Diagnosis Malignant neoplasm of prostate documented in this encounter Care Teams Tutoring Clinician Relationship Specialty Start Date End Date Alfredo Montoya DO [address] [place] [address] PCP - General Internal Medicine 12/04/19 04/27/23 documented as of this encounter
--- OUTSIDE RECORDS SUMMARY | 2024-07-07 22:34 | XMS_ITS | Encounter Summary ---
Author Organization [facility] Address [facility] [place] [address] Care Team Providers Care Aircraft Design Engineer Name Role Phone Alfredo Montoya DO Primary Care Provider [phone] Encounter Details Date Type Department Care Team (Late st Contact Info) Description 08/29/2020 Ancillary Procedure Radiology Library at [facility] [place] [address] Alfredo Montoya DO [address] [place] [address] Social History Tobacco Use Types Packs/Day Years [...] EDT Office Visit Radiation Oncology at [address] [phone] Taya De La Vega PA [facility] HEMATOLOGY [place] [address] 11/13/2024 2:00 PM EDT Office Visit Hematology/Oncology at [address] [phone] Kirt Kennedy MD [facility] DR HEMATOLOGY [place] [address] Alem Lazaro, CHOLO [address] [place] [address] DR HEMATOLOGY [place] [address] documented as of this encounter Procedures Procedure Name Priority Date/Time Associated Diagnosis Comments FILM LIBRARY STORAGE ONLY CT HEAD AND SPINE Routine 08/29/2020 12:00 AM EST documented in this encounter Results * Film Library- Storage Only CT Head And Spine (08/29/2020 12:00 AM EST) Narrative [facility] - 10/05/2020 4:19 AM EST This exam is auto-finalizing. It's purpose is for storage only. Alfredo Montoya DO [facility] FILM LIBRARY OR DERABLES Performing Organization Address City/State/[facility] Co de Phone Number [place], [place] documented in this encounter Visit Diagnoses Not on filedocumented in this encounter Care Teams Aircraft Design Engineer Relationship Specialty Start Date End Date Alfredo Montoya DO [address] [place] [address] PCP - General Internal Medicine 12/04/19 04/27/23 documented as of this encounter
--- OUTSIDE RECORDS SUMMARY | 2024-07-07 22:34 | XMS_ITS | Encounter Summary ---
Author Organization [facility] [place] [address] Care Team Providers Care Tissue Packer Name Role Phone Alfredo Montoya DO Primary Care Provider [phone] Encounter Details Date Type Department Care Team (Late st Contact Info) Description 10/02/2020 Telephone Radiation Oncology at [address] [phone] Noelle Ramirez RN Social History [...] AM EST Radiation Oncology Nurse Telephone Note [facility] [place], [place] 09:18 Pt's called stating that he has developed hematuria. She states that [facility] agency is aware of [...] EDT Office Visit Radiation Oncology at [address] [phone] aTya De La Vega PA [facility] DR HEMATOLOGY [place] [address] 11/13/2024 2:00 PM EDT Office Visit Hematology/Oncology at [address] [phone] Kirt Kennedy MD [facility] DR HEMATOLOGY [place] [address] Alem Lazaro APRN [address] [place] [address] DR HEMATOLOGY [place] [address] documented as of this encounter Visit Diagnoses Not on filedocumented in this encounter Care Teams Tissue Packer Relationship Specialty Start Date End Date Alfredo Montoya DO [address] [place] [place] [address] PCP - General Internal Medicine 12/04/19 04/27/23 documented as of this encounter
--- OUTSIDE RECORDS SUMMARY | 2024-07-07 22:34 | XMS_ITS | Encounter Summary ---
Author Organization [facility] [place] [address] Care Team Providers Care Solar Energy Technician Name Role Phone Alfredo Montoya DO Primary Care Provider [phone] Encounter Details Date Type Department Care Team (Late st Contact Info) Description 07/26/2020 3:15 PM EST Office Visit Radiation Oncology at [address] [phone] Ashley Wong, HEALTH CARE SPECIALIST Malignant neoplasm of prostate Social History Tobacco [...] - Follow up Visit Ashley Wong MS CHOLO Radiation Oncology [facility] PATIENT IDENTIFICATION ?? Name Narcisa Eduardo Date of 1945 ? PCP Alfredo Montoya, DO Referring MD (if different) Dr. Martha Montoya ([place]) ? 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 HISTORY OF PRESENT ILLNESS: Narcisa Eduardo is a 74 y.o. 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 ?? Presenting Symptoms / Duration: ePSA; per pt he has had ERIKA in past that did not show any nodules ?? Prior consultations / recommendations: Dr Thomas - [facility] - 12/01/19 - options of , RP, RT reviewed. Patient interested in learning more about RT. Referral placed. ?? PSA History: 11/03/19 - 12.9 ?? Pathology Results / Location: [facility] Bx 11/23/19 ([facility]) - Gl 4+3 x 1 - [...] quickly. He went to the ER at [facility]. He had both stool and urine [...] EDT Office Visit Radiation Oncology at [address] [phone] aTya De La Vega PA [facility] [place]ATOLOGY [place] [address] 11/13/2024 2:00 PM EDT Office Visit Hematology/Oncology at [address] [phone] Kirt Kennedy MD [facility] HEMATOLOGY [place] [address] Alem Lazaro, [address] HEMATOLOGY [place] [address] documented as of this encounter Visit Diagnoses Diagnosis Malignant neoplasm of prostate documented in this encounter Care Teams Solar Energy Technician Relationship Specialty Start Date End Date Alfredo Montoya DO [address] [place] [address] PCP - General Internal Medicine 12/04/19 04/27/23 documented as of this encounter
--- OUTSIDE RECORDS SUMMARY | 2024-07-07 22:34 | XMS_ITS | Encounter Summary ---
Author Organization [facility] Address [facility] [place] [address] Care Team Providers Care Driver Name Role Phone Alfredo Montoya DO Primary Care Provider [phone] Encounter Details Date Type Department Care Team (Late Contact Info) Description 10/08/2020 Orders [place] [address] [facility] [place] [address] SDH (subdural hematoma) Social History Tobacco Use [...] EDT Office Visit Radiation Oncology at [address] [phone] [address] De La Vega PA [facility] DR HEMATOLOGY [place] [address] 11/13/2024 2:00 PM EDT Office Visit Hematology/Oncology at [address] [phone] [facility] DR HEMATOLOGY [place] [address] Alem Lazaro, [address] [place]OLOG[place] [address] documented as of this encounter Visit Diagnoses Diagnosis SDH (subdural hematoma) Subdural hemorrhage documented in this encounter Care Teams Driver Relationship Specialty Start Date End Date Alfredo Montoya DO [address] [place] [address] PCP - General Internal Medicine 12/04/19 04/27/23 documented as of this encounter
--- OUTSIDE RECORDS SUMMARY | 2024-07-07 22:34 | XMS_ITS | Encounter Summary ---
Author Organization [facility] Address [facility] [place] [address] Care Team Providers Care Event Decorator And Designer Name Role Phone Alfredo Montoya DO Primary Care Provider Encounter Details Date Type Department Care Team (Late Contact Info) Description 08/26/2020 6:00 PM EST Ancillary Procedure Radiology Library at [facility] [place] [phone] Que Evans MD [address] [place] [address] DR RADIATION ONCOLOGY [place], [place] [phone] Social History Tobacco Use Types Packs/Day Years [...] EDT Office Visit Radiation Oncology at [address] [phone] Taya De La Vega PA [facility] DR HEMATOLOGY [place] [address] 11/13/2024 2:00 PM EDT Office Visit Hematology/Oncology at [address] [phone] Kirt Kennedy MD [facility] DR [place] [address] Alem Lazaro, [address] HEMATOLOGY AND ONCOLOGY [place], [place] [address] documented as of this encounter Procedures Procedure Name Priority Date/Time Associated Diagnosis Comments FILM LIBRARY STORAGE ONLY MR HEAD Routine 08/26/2020 5:57 PM EST documented in this encounter Results * Film Library- Storage Only MR Head (08/26/2020 5:57 PM EST) Narrative [facility] - 08/26/2020 5:57 PM EST This exam is auto-finalizing. It's purpose is for storage only. Que Evans MD IMG FILM LIBRARY ORD ERABLES [place], [place] documented in this encounter Visit Diagnoses Not on filedocumented in this encounter Care Teams Event Decorator And Designer Relationship Specialty Start Date End Date Alfredo Montoya DO [address] [place] [address] PCP - General Internal Medicine 12/04/19 04/27/23 documented as of this encounter
--- OUTSIDE RECORDS SUMMARY | 2024-07-07 22:34 | XMS_ITS | Encounter Summary ---
Author Organization [facility] [place] [address] Care Team Providers Care Paper Coater Name Role Phone Alfredo Montoya DO Primary Care Provider [phone] Encounter Details Date Type Department Care Team (Late st Contact Info) Description 07/30/2020 Telephone Hematology/Oncology at [address] [phone] Social History [...] EDT Office Visit Radiation Oncology at [address] [phone] Taya De La Vega PA [facility] HEMATOLOGY [place] [address] 11/13/2024 2:00 PM EDT Office Visit Hematology/Oncology at [address] [phone] Kirt Kennedy MD [facility] DR HEMATOLOGY [place] [address] Alem Lazaro APRN [address] [place] [address] DR HEMATOLOGY AND ONCOLOGY [place], [place] [address] documented as of this encounter Visit Diagnoses Not on filedocumented in this encounter Care Teams Paper Coater Relationship Specialty Start Date End Date Alfredo Montoya DO [address] [place] [address] PCP - General Internal Medicine 12/04/19 04/27/23 documented as of this encounter
--- OUTSIDE RECORDS SUMMARY | 2024-07-07 22:34 | XMS_ITS | Encounter Summary ---
Author Organization [facility] Address [facility] [place] [address] Care Team Providers Care Housing Project Manager Name Role Phone Alfredo Montoya DO Primary Care Provider [phone] Encounter Details Date Type Department Care Team (Latest Contact Info) Description 04/09/2020 10:00 AM EDT Clinical Support Hematology/Oncology at [address] [phone] Malignant neoplasm [...] Johnson RD - 04/09/2020 10:00 AM EDT [facility] Dietitian Follow Up Seen By: Kristyn [...] Am: first meal around 10 or 11, gambian muffin with egg on one side and [...] EDT Office Visit Radiation Oncology at [address] [phone] Taya De La Vega PA [facility] DR HEMATOLOGY [place] [address] 11/13/2024 2:00 PM EDT Office Visit Hematology/Oncology at [address] [phone] Kirt Kennedy MD [facility] DR HEMATOLOGY [place] [address] Alem Lazaro APRN [address] [place] [address] DR HEMATOLOGY AND ONCOLOGY [place], [place] [address] documented as of this encounter Visit Diagnoses Diagnosis Malignant neoplasm of prostate documented in this encounter Care Teams Housing Project Manager Relationship Specialty Start Date End Date Alfredo Montoya DO [address] [place] [address] PCP - General Internal Medicine 12/04/19 04/27/23 documented as of this encounter
--- OUTSIDE RECORDS SUMMARY | 2024-07-07 22:34 | XMS_ITS | Encounter Summary ---
Author Organization [facility] [place] [address] Care Team Providers Care Page Designer Name Role Phone Alfredo Montoya DO Primary Care Provider [phone] Encounter Details Date Type Department Care Team (Late st Contact Info) Description 03/07/2020 10:00 AM EDT Office Visit Radiation Oncology at [address] [phone] Que Evans MD [address] [place] [address] DR RADIATION ONCOLOGY [place], [place] [phone] Malignant neoplasm of prostate Social History Tobacco [...] 03/07/20 Que Evans MD, MS Radiation Oncology [facility] [phone] (paging sandwich machine operator) Pager #[phone] PATIENT IDENTIFICATION Name Narcisa Eduardo Date of 1945 PCP Alfredo Montoya DO Referring MD (if different) Dr. Martha Montoya ([place]) 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, Gl [...] EDT Office Visit Radiation Oncology at [address] [phone] Taya De La Vega PA [facility] DR [place] [address] 11/13/2024 2:00 PM EDT Office Visit Hematology/Oncology at [address] [phone] Kirt Kennedy MD [facility] DR [place] [address] Alem Lazaro, [address] HEMATOLOGY AND ONCOLOGY [place], [place] [address] documented as of this encounter Visit Diagnoses Diagnosis Malignant neoplasm of prostate documented in this encounter Care Teams Page Designer Relationship Specialty Start Date End Date Alfredo Montoya DO [address] [place] [address] PCP - General Internal Medicine 12/04/19 04/27/23 documented as of this encounter
--- OUTSIDE RECORDS SUMMARY | 2024-07-07 22:34 | XMS_ITS | Encounter Summary ---
Author Organization [facility] Address [facility] [place] [address] Care Team Providers Care Private Branch Exchange Installer Name Role Phone Alfredo Montoya DO Primary Care Provider [phone] Reason for Visit * - Closed Specialty Diagnoses / Procedures Referred By Rogers t Referred To Contact Procedures Film Library- Storage Only CT Abdomen & Pelvis Alfredo Montoya, DO [address] [place] [address] Referral ID Status Reason Start Date Expiration Date Visits Re quested Visits Authorized [id number] Closed 12/08/2020 12/08/2021 1 1 Encounter Details Date Type Department Care Team (Late Contact Info) Description 12/03/2020 Ancillary Procedure Radiology Library at [facility] [place] [address] Alfredo Montoya, DO [address] [place] [address] Social History Tobacco Use Types Packs/Day Years [...] EDT Office Visit Radiation Oncology at [address] [phone] Taya De La Vega PA [facility] DR HEMATOLOGY [place] [address] 11/13/2024 2:00 PM EDT Office Visit Hematology/Oncology at [address] [phone] Kirt Kennedy MD [facility] DR HEMATOLOGY [place] [address] Alem Lazaro APRN [address] [place] [address] DR HEMATOLOGY AND ONCOLOGY [place], [place] [phone] documented as of this encounter Procedures Procedure Name Priority Date/Time Associated Diagnosis Comments FILM LIBRARY STORAGE ONLY CT ABDOMEN AND PELVIS Routine 12/03/2020 12:00 AM EDT documented in this encounter Results * Film Library- Storage Only CT Abdomen & Pelvis (12/03/2020 12:00 AM EDT) Narrative [facility] - 12/08/2020 12:24 PM EDT This exam is auto-finalizing. It's purpose is for storage only. Alfredo Montoya DO [facility] FILM LIBRARY OR DERABLES Performing Organization Address City/State/[facility] Co de Phone Number [place], [place] documented in this encounter Visit Diagnoses Not on filedocumented in this encounter Care Teams Private Branch Exchange Installer Relationship Specialty Start Date End Date Alfredo Montoya DO [address] [place] [address] PCP - General Internal Medicine 12/04/19 04/27/23 documented as of this encounter
--- OUTSIDE RECORDS SUMMARY | 2024-07-07 22:34 | XMS_ITS | Encounter Summary ---
Author Organization [facility] Address [facility] [place] [address] Care Team Providers Care Class B Truck Driver Name Role Phone Alfredo Montoya DO Primary Care Provider Encounter Details Date Type Department Care Team (Late st Contact Info) Description 08/26/2020 Ancillary Procedure Radiology Library at [facility] [place] [address] Alfredo Montoya DO [address] [place] [address] Social History Tobacco Use Types Packs/Day Years [...] EDT Office Visit Radiation Oncology at [address] [phone] Taya De La Vega PA [facility] HEMATOLOGY [place] [address] 11/13/2024 2:00 PM EDT Office Visit Hematology/Oncology at [address] [phone] Kirt Kennedy MD [facility] DR [place] [address] Alem Lazaro, CHOLO [address] [place] [address] DR [place]AT[place]Y [place] [address] documented as of this encounter Procedures Procedure Name Priority Date/Time Associated Diagnosis Comments FILM LIBRARY STORAGE ONLY CT HEAD AND SPINE Routine 08/26/2020 12:00 AM EST documented in this encounter Results * Film Library- Storage Only CT Head And Spine (08/26/2020 12:00 AM EST) Narrative [facility] - 10/05/2020 4:43 AM EST This exam is auto-finalizing. It's purpose is for storage only. Alfredo Montoya DO [facility] FILM LIBRARY OR DERABLES Performing Organization Address City/State/[facility] Co de Phone Number [place], [place] documented in this encounter Visit Diagnoses Not on filedocumented in this encounter Care Teams Class B Truck Driver Relationship Specialty Start Date End Date Alfredo Montoya DO [address] [place] [address] PCP - General Internal Medicine 12/04/19 04/27/23 documented as of this encounter
--- OUTSIDE RECORDS SUMMARY | 2024-07-07 22:34 | XMS_ITS | Encounter Summary ---
Author Organization [facility] [place] [address] Care Team Providers Care Network Operations Lead Name Role Phone Alfredo Montoya DO Primary Care Provider [phone] Encounter Details Date Type Department Care Team (Late st Contact Info) Description 10/04/2020 Telephone Radiation Oncology at [address] [phone] Noelle Ramirez RN Social History [...] PM EST Radiation Oncology Nurse Telephone Note [facility] [place], [place] Follow-up telephone call to patient to [...] EDT Office Visit Radiation Oncology at [address] [phone] Taya De La Vega PA [facility] DR [place] [address] 11/13/2024 2:00 PM EDT Office Visit Hematology/Oncology at [address] [phone] Kirt Kennedy MD [facility] DR [place] [address] Alem Lazaro APRN [address] [place] [address] DR HEMATOLOGY AND ONCOLOGY [place], [place] [phone] documented as of this encounter Visit Diagnoses Not on filedocumented in this encounter Care Teams Network Operations Lead Relationship Specialty Start Date End Date Alfredo Montoya DO [address] [place] [address] PCP - General Internal Medicine 12/04/19 04/27/23 documented as of this encounter
--- OUTSIDE RECORDS SUMMARY | 2024-07-07 22:34 | XMS_ITS | Encounter Summary ---
Author Organization [facility] Address [facility] [place] [address] Care Team Providers Care Drosser Name Role Phone Alfredo Montoya DO Primary Care Provider Encounter Details Date Type Department Care Team (Late st Contact Info) Description 08/26/2020 12:05 AM EST Ancillary Procedure Radiology Library at [place] [place] [address] Alfredo Montoya, DO [address] [place] [address] Social History Tobacco Use Types Packs/Day Years [...] EDT Office Visit Radiation Oncology at [address] [phone] Taya De La Vega PA [facility] HEMATOLOGY [place] [address] 11/13/2024 2:00 PM EDT Office Visit Hematology/Oncology at [address] [phone] Kirt Kennedy MD [facility] DR HEMATOLOGY [place] [address] Alem Lazaro, RAILWAY SIGNAL TECHNICIAN [address] [place] [address] HEMATOLOGY AND ONCOLOGY [place], [place] [address] documented as of this encounter Procedures Procedure Name Priority Date/Time Associated Diagnosis Comments FILM LIBRARY STORAGE ONLY DX CHEST Routine 08/26/2020 12:05 AM EST documented in this encounter Results * Film Library- Storage Only DX Chest (08/26/2020 12:05 AM EST) Narrative [facility] - 10/05/2020 4:50 AM EST This exam is auto-finalizing. It's purpose is for storage only. Alfredo Montoya DO [facility] FILM LIBRARY OR DERABLES Performing Organization Address City/State/[facility] Co de Phone Number [place], [place] documented in this encounter Visit Diagnoses Not on filedocumented in this encounter Care Teams Drosser Relationship Specialty Start Date End Date Alfredo Montoya DO [address] [place] [address] PCP - General Internal Medicine 12/04/19 04/27/23 documented as of this encounter
--- OUTSIDE RECORDS SUMMARY | 2024-07-07 22:34 | XMS_ITS | Encounter Summary ---
Author Organization [facility] Address [facility] [place] [address] Care Team Providers Care Chinese Teacher Name Role Phone Alfredo Montoya DO Primary Care Provider Encounter Details Date Type Department Care Team (Late st Contact Info) Description 01/22/2021 Ancillary Procedure Radiology Library at [place] [place] [address] Silvia Zapata APRN [facility] [place] [address] Social History Tobacco Use Types Packs/Day Years [...] EDT Office Visit Radiation Oncology at [address] [phone] Taya De La Vega PA [facility] HEMATOLOGY [place] [address] 11/13/2024 2:00 PM EDT Office Visit Hematology/Oncology at [address] [phone] Kirt Kennedy MD [facility] DR [place] [address] Alem Lazaro APRN [address] [place] [address] DR HEMATOLOGY [place] [address] documented as of this encounter Procedures Procedure Name Priority Date/Time Associated Diagnosis Comments FILM LIBRARY STORAGE ONLY CT HEAD Routine 01/22/2021 12:00 AM EDT documented in this encounter Results * Film Library- Storage Only CT Head (01/22/2021 12:00 AM EDT) Narrative [facility] - 05/08/2021 10:52 PM EDT This exam is auto-finalizing. It's purpose is for storage only. Silvia Zapata APRN IMG FILM LIBRARY ORDERABLES Performing Organization Address City/State/[facility] Co de Phone Number [place], [place] documented in this encounter Visit Diagnoses Not on filedocumented in this encounter Care Teams Chinese Teacher Relationship Specialty Start Date End Date Alfredo Montoya DO [address] [place] [address] PCP - General Internal Medicine 12/04/19 04/27/23 documented as of this encounter
--- OUTSIDE RECORDS SUMMARY | 2024-07-07 22:34 | XMS_ITS | Encounter Summary ---
Author Organization [facility] Address [facility] [place] [address] Care Team Providers Care Operation Supervisor Name Role Phone Alfredo Montoya DO Primary Care Provider [phone] Encounter Details Date Type Department Care Team (Late st Contact Info) Description 08/27/2020 Telephone Neurosurgery at [facility] [place] [phone] Chloé Hummel APRN Social History Tobacco Use [...] the time he arrived to ED at [facility]. He is on Keppra 750mg BID at home. Patient is being given KCentra/Vitamin K and Keppra 1 gram load with increase to 1 gram BID. He is neurologically intact and without any deficits since arrival to ED there. MRI Brain with LEFT frontal-parietal [facility] currently has no capacity to take this patient. In light of the fact that [facility] has already called (5) other hospitals to [...] EDT Office Visit Radiation Oncology at [address] [phone] Taya De La Vega PA [facility] DR [place] [address] 11/13/2024 2:00 PM EDT Office Visit Hematology/Oncology at [address] [phone] Kirt Kennedy MD [facility] DR [place] [address] Alem Lazaro APRN [address] [place] [address] DR HEMATOLOGY AND ONCOLOGY [place], [place] [phone] documented as of this encounter Visit Diagnoses Not on filedocumented in this encounter Care Teams Operation Supervisor Relationship Specialty Start Date End Date Alfredo Montoya DO [address] [place] [address] PCP - General Internal Medicine 12/04/19 04/27/23 documented as of this encounter
--- OUTSIDE RECORDS SUMMARY | 2024-07-07 22:34 | XMS_ITS | Encounter Summary ---
Author Organization [facility] Address [facility] [place] [address] Care Team Providers Care Food Management Aide Name Role Phone Alfredo Montoya DO Primary Care Provider Encounter Details Date Type Department Care Team (Late st Contact Info) Description 08/30/2020 Ancillary Procedure Radiology Library at [facility] [place] [address] Alfredo Montoya DO [address] [place] [address] Social History Tobacco Use Types Packs/Day Years [...] EDT Office Visit Radiation Oncology at [address] [phone] Taya De La Vega PA [facility] HEMATOLOGY [place] [address] 11/13/2024 2:00 PM EDT Office Visit Hematology/Oncology at [address] [phone] Kirt Kennedy MD [facility] DR [place] [address] Alem Lazaro, CHOLO [address] [place] [address] [place] [address] documented as of this encounter Procedures Procedure Name Priority Date/Time Associated Diagnosis Comments FILM LIBRARY STORAGE ONLY ANGIO STUDY Routine 08/30/2020 12:00 AM EST documented in this encounter Results * Film Library- Storage Only Angio Studies (08/30/2020 12:00 AM EST) Narrative [facility] - 10/05/2020 4:48 AM EST This exam is auto-finalizing. It's purpose is for storage only. Alfredo Montoya DO IMG FILM LIBRARY OR DERABLES Performing Organization Address City/State/[facility] Co de Phone Number [place], [place] documented in this encounter Visit Diagnoses Not on filedocumented in this encounter Care Teams Food Management Aide Relationship Specialty Start Date End Date Alfredo Montoya DO [address] [place] [address] PCP - General Internal Medicine 12/04/19 04/27/23 documented as of this encounter
--- OUTSIDE RECORDS SUMMARY | 2024-07-07 22:34 | XMS_ITS | Encounter Summary ---
Author Organization [place] [address] Care Team Providers Care Recreation Specialist Name Role Phone Alfredo Montoya DO Primary Care Provider [phone] Encounter Details Date Type Department Care Team (Late st Contact Info) Description 04/02/2020 10:00 AM EDT Office Visit Hematology/Oncology at [address] [phone] Malignant neoplasm [...] Am: first meal around 10 or 11, slovenian muffin with egg on one side and [...] EDT Office Visit Radiation Oncology at [address] [phone] Taya De La Vega PA [facility] DR HEMATOLOGY [place] [address] 11/13/2024 2:00 PM EDT Office Visit Hematology/Oncology at [address] [phone] Kirt Kennedy MD [facility] DR HEMATOLOGY [place] [address] Alem Lazaro APRN [address] [place] [address] DR HEMATOLOGY AND ONCOLOGY [place], [place] [phone] documented as of this encounter Visit Diagnoses Diagnosis Malignant neoplasm of prostate documented in this encounter Care Teams Recreation Specialist Relationship Specialty Start Date End Date Alfredo Montoya DO [address] [place] [address] PCP - General Internal Medicine 12/04/19 04/27/23 documented as of this encounter
--- OUTSIDE RECORDS SUMMARY | 2024-07-07 22:35 | XMS_ITS | Encounter Summary ---
Author Organization [facility] Address [facility] [place] [address] Care Team Providers Care Writer Technical Publications Name Role Phone Alfredo Montoya DO Primary Care Provider Encounter Details Date Type Department Care Team (Late Contact Info) Description 02/02/2020 3:00 PM EDT Telephone Radiation Oncology at [address] [phone] Que Evans MD [address] [place] [address] DR [place] [address] Rad NurseSt [place] Social History [...] EDT Office Visit Radiation Oncology at [address] [phone] Taya De La Vega PA [facility] DR HEMATOLOGY [place] [address] 11/13/2024 2:00 PM EDT Office Visit Hematology/Oncology at [address] [phone] Kirt Kennedy MD [facility] DR HEMATOLOGY [place] [address] Alem Lazaro APRN [address] [place] [address] DR HEMATOLOGY [place] [address] documented as of this encounter Visit Diagnoses Not on filedocumented in this encounter Care Teams Writer Technical Publications Relationship Specialty Start Date End Date Alfredo Montoya DO [address] [place] [address] PCP - General Internal Medicine 12/04/19 04/27/23 documented as of this encounter
--- OUTSIDE RECORDS SUMMARY | 2024-07-07 22:35 | XMS_ITS | Encounter Summary ---
Author Organization [facility] [place] [address] Care Team Providers Care Cut Lace Machine Operator Name Role Phone Alfredo Montoya DO Primary Care Provider [phone] Encounter Details Date Type Department Care Team (Late st Contact Info) Description 02/09/2020 9:30 AM EDT Procedure visit Radiation Oncology at [address] [phone] Que Evans MD [address] [place] [address] [place] [address] Malignant neoplasm of prostate Social [...] You will receive separate instructions specifically from [facility] concerning your exact arrival time and what you need to do to prepare for this. Date: 02/13 at [facility] at 7:50 , per patient. ? Your [...] with eating. ?? How to reach us: [facility] [phone] For weekends and after hours: Call [facility] ask for the direct service professional radiation oncologist documented in this encounter Progress [...] He comes to clinic accompanied by a vibratory pile driver. [yes, stopped Plavix 5 days ago [...] needed for mild discomfort. He has the [facility] phone number and verbalized understanding to ask for the direct service professional radiation oncologist if he needs to after [...] SpaceOAR system was then prepared as per office services manager's recommendations, using sterile technique. Lidocaine was then [...] was properly positioned, two 5mm gold coils (PublicVine) were separately placed within the right lobe, [...] EDT Office Visit Radiation Oncology at [address] [phone] Taya De La Vega PA [facility] DR [place] [address] 11/13/2024 2:00 PM EDT Office Visit Hematology/Oncology at [address] [phone] Kirt Kennedy MD [facility] DR [place]EMATOLOG[place] [address] Alem Lazaro APRN [address] [place] [address] DR HEMATOLOGY [place] [address] documented as of this encounter Visit Diagnoses Diagnosis Malignant neoplasm of prostate documented in this encounter Care Teams Cut Lace Machine Operator Relationship Specialty Start Date End Date Alfredo Montoya DO [address] [place] [address] PCP - General Internal Medicine 12/04/19 04/27/23 documented as of this encounter
--- OUTSIDE RECORDS SUMMARY | 2024-07-07 22:35 | XMS_ITS | Encounter Summary ---
Author Organization [facility] Address [facility] [place] [address] Care Team Providers Care Staffing Branch Manager Name Role Phone Unknown Primary Care Provider Unavailabl e Encounter Details Date Type Department Care Team (Late st Contact Info) Description 03/06/2015 [place] [address] Tavo Dumont MD [facility] [place] [address] Social History Tobacco Use Types Packs/Day Years [...] EDT Office Visit Radiation Oncology at [address] [phone] Taya De La Vega PA [facility] DR [place] [address] 11/13/2024 2:00 PM EDT Office Visit Hematology/Oncology at [address] [phone] Kirt Kennedy MD [facility] DR [place] [address] Alem Lazaro APRN [address] [place] [address] DR [place] [address] documented as of this encounter Procedures Procedure [...] is a Non-reportable exam Tavo Dumont MD [facility] FILM LIBRARY ORD ERABLES documented in this encounter Visit Diagnoses Not on filedocumented in this encounter Care Teams Staffing Branch Manager Relationship Specialty Start Date End Date Unknown None PCP - General 07/15/10 03/17/15 documented as of this encounter
--- OUTSIDE RECORDS SUMMARY | 2024-07-07 22:35 | XMS_ITS | Encounter Summary ---
Author Organization [facility] [place] [address] Care Team Providers Care Stave Block Roller Name Role Phone Naty Robles MD Primary Care Provider [phone] Encounter Details Date Type Department Care Team (Latest Contact Info) Description 03/18/2015 1:30 PM EDT - 03/18/2015 11:59 PM EDT Hospital [place] [phone] CLINIC, Alicia Reich MD [facility] [place] [address] Discharge Disposition: Home Social History Tobacco Use [...] Solis RN - 03/18/2015 3:[address] [facility] Vascular and Interventional Radiology Biopsy Discharge [...] be reported to you by your primary wound care center consultant or the clinician who ordered the biopsy. [...] is during regular office hours, please call [phone]. If it is after regular office hours, or on weekends or holidays, please call [phone] and ask to speak to the Electronic Typesetting Machine Operator cooperative education director for Interventional Radiology. x You have received [...] on file. PCP NATY ROBLES MD (General) [phone] Date/Time of call: March 19, 2015/9:53 AM [...] of : 1945 AGE 69 y.o. Address: [address] [place] [phone] (home) Mobile: No relevant phone numbers on [...] informed this patient that they require a paratransit driver to be present and in the building to drive them home after this procedure. In the absence of a paratransit driver, IR will not be able to [...] EDT Office Visit Radiation Oncology at [address] [phone] [address] La V[address] PA [facility] [place] [address] 11/13/2024 2:00 PM EDT Office Visit Hematology/Oncology at [address] [phone] [facility] [place] [address] Alem Lazaro APRN [address] [place] [address] DR [place] [address] documented as of this encounter Procedures Procedure Name Priority Date/Time Associated Diagnosis Comments NON-NEEDLE LOOM OPERATOR FLOW CYTOMETRY REPORT Routine 03/18/2015 4:23 PM EDT NON-NEEDLE LOOM OPERATOR FINAL REPORT Routine 03/18/2015 4:[address] GUIDED BIOPSY LYMPH NODE HEAD/NECK Routine 03/18/2015 3:45 PM EDT CYTOPATHOLOGY NON-GYNECOLOGICAL Routine 03/18/2015 2:18 PM EDT IMMUNOPHENOTYPING FLOW CYTOMETRY (BLOOD) Routine 03/18/2015 2:17 PM EDT documented in this encounter Results * Non-NEEDLE LOOM OPERATOR Flow Cytometry Report (03/18/2015 4:23 PM EDT) Non-NEEDLE LOOM OPERATOR Flow Cytometry Report ? [facility] ? Provider: ?? ALICIA DUMONT ?Pt. Name: ?? EVERT, GALINA ? Acc #: ?[id number] ? Pt. ? Col Date: ?? 03/18/2015 ? /Sex: ?1945,(69 years),Male ? Rec Date: ?? 03/18/2015 ? LOC: ?3ZC ? ANALYTICAL CELL PATHOLOGY ? ---Clinical Information--- ? 69 yo male with lymphadenopathy. ? ---Preparation--- ? FCM: [id number] ? [id number] ? ---Markers--- ? Cells for immunophenotypic analysis [...] ? the Clinical Flow Cytometry Laboratory at [facility]- ? [facility] ? Provider: ?? ALICIA DUMONT ?Pt. Name: ?? GALINA LOYD ? Acc #: ?[id number] ? Pt. ? Col Date: ?? 03/18/2015 ? /Sex: ?1945,(69 years),Male ? Rec Date: ?? 03/18/2015 ? LOC: ?3ZC ? ANALYTICAL CELL PATHOLOGY ? [facility]. It has not been cleared or [...] MD PATHOLOGY/CYTOLOGY O THALIA HAFSA BARDALES * Non-Staff Development Manager Final Report (03/18/2015 4:23 PM EDT) Diagnosis Discussion [id number] ? Location: [facility] The signing pathologist has (i) examined the relevant preparation(s) for the specimen(s) and (ii) rendered or confirmed the diagnosis(es). . ? Pathology Flow Cytometry Report Clinical Information 69 yo male with lymphadenopathy. Preparation FCM: [id number] Markers Cells for immunophenotypic analysis were derived [...] CD10+ B-cell population identified (see Comment). 03/19/15 [facility] 03/20/15 Verified by: ? BHASKAR ENNIS ?Hematopathologist [...] by the Clinical Flow Cytometry Laboratory at [facility]. It has not been cleared or [...] high complexity clinical laboratory testing. ? Pathology Non-Staff Development Manager Cytology Final Report Clinical Information Specimen Source : Lymph node (CT-guided needle core biopsy and touch imprint cytology - assisted) Site: Lymph node . Clinical Information Clinical History/Impression: Smoker with periaortic and iliac lymph nodes. ? path Please send results/report to: Dr Je Durham [facility] Gross Description: Received in 50 mL of [...] BCL6 ? Ki67 03/20/2015 4:41 PM EDT [facility] Misc. FNA 03/18/2015 4:23 PM EDT 03/18/2015 4:23 PM EDT Alicia Dumont MD PATHOLOGY/CYTOLOGY O RDERABLES Performing Organization Address City/State/[facility] Co ny Phone Number [facility] [place] [address] * CT Biopsy-Lymph Node (03/18/2015 3:45 PM [...] MD PATHOLOGY/CYTOLOGY O RDERABLES Performing Organization Address [facility] Co de Phone Number [facility] * Immunophenotyping Flow Cytometry (03/18/2015 2:17 PM EDT) Immunophenotyping Flow See Comment [facility] Comment: When completed by the Pathologist, the Flow Cytometry Report ([id number]) will display under the Pathology Results section within eDH. Specimen of unknown material (specimen) Other / Unknown 03/18/2015 2:17 PM EDT 03/18/2015 5:29 PM EDT Narrative Resulting Agency Comment Spec In Lab Rosales Rodriguez MD HEMATOLOGY ORDERABLE S Performing Organization Address [facility] Co de Phone Number [facility] documented in this encounter Visit Diagnoses Not [...] mg documented in this encounter Care Teams Stave Block Roller Relationship Specialty Start Date End Date Naty Robles MD [address] [place] [address] [place] [address] PCP - General 03/18/15 08/22/19 documented as of this encounter
--- OUTSIDE RECORDS SUMMARY | 2024-07-07 22:35 | XMS_ITS | Encounter Summary ---
Author Organization [facility] [place] [address] Care Team Providers Care Screen Printing Machine Loader Unloader Name Role Phone Alfredo Montoya DO Primary Care Provider [phone] Encounter Details Date Type Department Care Team (Late st Contact Info) Description 02/12/2020 Telephone Radiation Oncology at [address] [phone] Krystle Becerra RN Social History [...] left on answering machine Section Radiation Oncology [facility] documented in this encounter Plan of Treatment Upcoming Encounters Date Type Department Care Team (Late st Contact Info) Description 11/09/2024 10:30 AM EDT Office Visit Radiation Oncology at [address] [phone] Taya De La Vega PA [facility] DR H[place]ATOLOG[place] [address] 11/13/2024 2:00 PM EDT Office Visit Hematology/Oncology at [address] [phone] Kirt Kennedy MD [facility] DR HEMAT[place] [address] Alem Lazaro APRN [address] [place] [address] DR HEMATOLOGY AND ONCOLOGY [place], [place] [phone] documented as of this encounter Visit Diagnoses Not on filedocumented in this encounter Care Teams Screen Printing Machine Loader Unloader Relationship Specialty Start Date End Date Alfredo Montoya DO [address] [place] [address] PCP - General Internal Medicine 12/04/19 04/27/23 documented as of this encounter
--- OUTSIDE RECORDS SUMMARY | 2024-07-07 22:35 | XMS_ITS | Encounter Summary ---
Author Organization [facility] [place] [address] Care Team Providers Care Appraiser Name Role Phone Alfredo Montoya DO Primary Care Provider [phone] Encounter Details Date Type Department Care Team (Late Contact Info) Description 02/29/2020 Telephone Radiation Oncology at [address] [phone] Yessi Lei Social History Tobacco [...] EDT Office Visit Radiation Oncology at [address] [phone] Taya De La Vega PA [facility] HEMATOLOGY [place] [address] 11/13/2024 2:00 PM EDT Office Visit Hematology/Oncology at [address] [phone] Kirt Kennedy MD [facility] HEMATOLOGY [place] [address] Alem Lazaro, [address] HEMATOLOGY [place] [address] documented as of this encounter Visit Diagnoses Not on filedocumented in this encounter Care Teams Appraiser Relationship Specialty Start Date End Date Alfredo Montoya DO [address] [place] [address] PCP - General Internal Medicine 12/04/19 04/27/23 documented as of this encounter
--- OUTSIDE RECORDS SUMMARY | 2024-07-07 22:35 | XMS_ITS | Encounter Summary ---
Author Organization [facility] [place] [address] Care Team Providers Care Condominium Association Manager Name Role Phone Alfredo Montoya DO Primary Care Provider [phone] Encounter Details Date Type Department Care Team (Late Contact Info) Description 01/10/2020 Telephone Radiation Oncology at [address] [phone] Noelle Ramirez RN Social History [...] PM EDT Radiation Oncology Nurse Telephone Note [facility] [place] [place] Patient called clinic stating that he [...] EDT Office Visit Radiation Oncology at [address] [phone] Taya De La Vega PA [facility] DR [place] [address] 11/13/2024 2:00 PM EDT Office Visit Hematology/Oncology at [address] [phone] Kirt Kennedy MD [facility] DR [place] [address] Alem Lazaro APRN [address] [place] [address] DR HEMATOLOGY AND ONCOLOGY [place], [place] [address] documented as of this encounter Visit Diagnoses Not on filedocumented in this encounter Care Teams Condominium Association Manager Relationship Specialty Start Date End Date Alfredo Montoya DO [address] [place] [address] PCP - General Internal Medicine 12/04/19 04/27/23 documented as of this encounter
--- OUTSIDE RECORDS SUMMARY | 2024-07-07 22:35 | XMS_ITS | Encounter Summary ---
Author Organization [facility] Address [facility] [place] [address] Care Team Providers Care Freelance Recruiter Name Role Phone Alfredo Montoya DO Primary Care Provider [phone] Encounter Details Date Type Department Care Team (Latest Contact Info) Description 03/01/2020 1:00 PM EDT Clinical Support Hematology/Oncology at [address] [phone] Malignant neoplasm [...] Johnson RD - 03/01/2020 1:00 PM EDT [facility] Initial Dietitian Assessment Seen By: Kristyn Johnson [...] Am: first meal around 10 or 11, yoruba muffin with egg on one side and [...] EDT Office Visit Radiation Oncology at [address] [phone] Taya De La Vega PA [facility] HEMATOLOGY [place] [address] 11/13/2024 2:00 PM EDT Office Visit Hematology/Oncology at [address] [phone] Kirt Kennedy MD [facility] DR [place] [address] Alem Lazaro APRN [address] [place] [address] DR HEMATOLOGY AND ONCOLOGY [place], [place] [id number] documented as of this encounter Visit Diagnoses Diagnosis Malignant neoplasm of prostate documented in this encounter Care Teams Freelance Recruiter Relationship Specialty Start Date End Date Alfredo Montoya DO [address] [place] [address] PCP - General Internal Medicine 12/04/19 04/27/23 documented as of this encounter
--- OUTSIDE RECORDS SUMMARY | 2024-07-07 22:35 | XMS_ITS | Encounter Summary ---
Author Organization [facility] [place] [address] Care Team Providers Care Actuarial Mathematician Name Role Phone Alfredo Montoya DO Primary Care Provider [phone] Encounter Details Date Type Department Care Team (Late st Contact Info) Description 01/17/2020 Telephone Radiation Oncology at [address] [phone] Meng Chauhan Social History Tobacco [...] EDT Office Visit Radiation Oncology at [address] [phone] Taya De La Vega PA [facility] DR HEMATOLOGY [place] [address] 11/13/2024 2:00 PM EDT Office Visit Hematology/Oncology at [address] [phone] Kirt Kennedy MD [facility] DR HEMATOLOGY [place] [address] Alem Lazaro APRN [address] [place] [address] DR HEMATOLOGY AND ONCOLOGY [place], [place] [address] documented as of this encounter Visit Diagnoses Not on filedocumented in this encounter Care Teams Actuarial Mathematician Relationship Specialty Start Date End Date Alfredo Montoya DO [address] [place] [address] PCP - General Internal Medicine 12/04/19 04/27/23 documented as of this encounter
--- OUTSIDE RECORDS SUMMARY | 2024-07-07 22:35 | XMS_ITS | Encounter Summary ---
Author Organization [facility] [place] [address] Care Team Providers Care A R Collections Rep Name Role Phone Alfredo Montoya DO Primary Care Provider [phone] Reason for Visit * Reason Onset Date Comments Other [facility] Encounter Details Date Type Department Care Team (Late st Contact Info) Description 02/13/2020 Telephone Hematology/Oncology at [address] [phone] Joana Roberts MSW OFFICE OF CARE MANAGEMENT [facility] ([facility] Social History Tobacco [...] requested a copy for his medical record. [place] Status: Pt is a . Utilization of [...] at this time. Plan: Informed pt of BATCH FREEZER availability and contact information as working remotely. Will follow for support and resources. documented in this encounter Plan of Treatment Upcoming Encounters Date Type Department Care Team (Late st Contact Info) Description 11/09/2024 10:30 AM EDT Office Visit Radiation Oncology at [address] [phone] Taya De La Vega PA [facility] DR HEMATOLOGY [place] [address] 11/13/2024 2:00 PM EDT Office Visit Hematology/Oncology at [address] [phone] Kirt Kennedy MD [facility] DR HEMATOLOGY [place] [address] Alem Lazaro APRN [address] [place] [address] DR HEMATOLOGY AND ONCOLOGY [place], [place] [id number] documented as of this encounter Visit Diagnoses Not on filedocumented in this encounter Care Teams A R Collections Rep Relationship Specialty Start Date End Date Alfredo Montoya DO [address] [place] [address] PCP - General Internal Medicine 12/04/19 04/27/23 documented as of this encounter
--- OUTSIDE RECORDS SUMMARY | 2024-07-07 22:35 | XMS_ITS | Encounter Summary ---
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 This report was reviewed by Daren Davis at 04/15/2015 5:54 PM Film and interpretation reviewed by the attending Narrative 04/15/2015 5:59 PM EDT EXAMINATION: PET/CT STANDARD (Skull base to Mid-thigh) CLINICAL HISTORY: staging lymphoma TECHNIQUE: Procedure: Following IV injection of 57-mghpzp-5-deoxyglucose (FDG) a standard uptake of approximately 60 [...] lymphoma TECHNIQUE: Procedure: Following IV injection of 56-sulbef-1-deoxyglucose(FDG) a standard uptake of approximately 60 minutes, [...] for referring this patient to [facility]. This report was reviewed by [...] EDT Eileen Cheung MD POINT OF CARE [facility] ORDERABLES HAFSA BARDALES documented in this encounter [...] mg documented in this encounter Care Teams Engineering Designer Relationship Specialty Start Date End Date Robson Robles MD [address] [facility] [address] [place] [address] PCP - General 03/18/15 08/22/19 documented as of this encounter
--- OUTSIDE RECORDS SUMMARY | 2024-07-07 22:35 | XMS_ITS | Encounter Summary ---
Author Organization [facility] Address [facility] [place] [address] Care Team Providers Care Social Sciences Department Chair Name Role Phone Alfredo Montoya DO Primary Care Provider [phone] Encounter Details Date Type Department Care Team (Late st Contact Info) Description 02/14/2020 10:40 AM EDT Ancillary Procedure Radiology Library [place] [phone] Alfredo Montoya, [address] [place] [address] Social History Tobacco Use Types Packs/Day Years [...] EDT Office Visit Radiation Oncology at [address] [phone] Taya De L aVega PA [facility] HEMATOLOGY [place] [address] 11/13/2024 2:00 PM EDT Office Visit Hematology/Oncology at [address] [phone] Kirt Kennedy MD [facility] DR HEMATOLOGY [place] [address] Alem Lazaro APRN [address] [place] [address] [place] [address] documented as of this encounter Procedures Procedure Name Priority Date/Time Associated Diagnosis Comments FILM LIBRARY STORAGE ONLY MR PELVIS Routine 02/14/2020 10:39 AM EDT documented in this encounter Results * Film Library- Storage Only MR Pelvis (02/14/2020 10:39 AM EDT) Narrative [facility] - 02/14/2020 10:39 AM EDT This exam is auto-finalizing. It's purpose is for storage only. Alfredo Montoya DO IMG FILM LIBRARY OR DERABLES Performing Organization Address City/State/[facility] Co de Phone Number [place], [place] documented in this encounter Visit Diagnoses Not on filedocumented in this encounter Care Teams Social Sciences Department Chair Relationship Specialty Start Date End Date Alfredo Montoya DO [address] [place] [address] PCP - General Internal Medicine 12/04/19 04/27/23 documented as of this encounter
--- OUTSIDE RECORDS SUMMARY | 2024-07-07 22:35 | XMS_ITS | Encounter Summary ---
Author Organization [facility] Address [facility] [place] [address] Care Team Providers Care Medical Microbiologist Name Role Phone Alfredo Montoya DO Primary Care Provider [phone] Reason for Visit * Consultation (Routine) - Closed Specialty Diagnoses / Procedures Referred By Rogers t Referred To Contact Radiation Oncology Diagnoses Prostate cancer Prostate Cancer Procedures Treatment Options Estela Thomas MD [facility] [place] [address] Que Evans MD [address] [place] [address] [place] [address] Referral ID Status Reason Start Date Expiration Date Visits Re quested Visits Authorized [id number] Closed 12/01/2019 05/29/2020 1 1 Encounter Details Date Type Department Care Team (Late st Contact Info) Description 01/08/2020 9:00 AM EDT TH Visit (TeleHealth) Radiation Oncology at [address] [phone] Que Evans MD [address] [place] [address] [place] [address] Malignant neoplasm of prostate Social [...] Dear Mr. Eduardo, Dr. Thomas at the [facility] asked for me to see you to [...] are considered high risk. 2. Your highest Jacob score was 4+3=7 (this is how aggressive your prostate cancer looks under the microscope). Jacob scores for cancer range from 6-10, and [...] shorter course and while safe in the long term care social worker it might be associated with slightly higher [...] bills that you might receive, to a swimming pool maintenance supervisor. In most cases, we have been told, [...] completion radiation. 6. SIDE EFFECTS - Senior Director Creative Services: These can include be permanent damage of the radiated tissues, including the rectum/bowel, bladder, prostate and surrounding tissues. Potential serious injury is rare, but can include poor wound healing, bleeding, or destruction of healthy tissue that may require surgery to repair and may result in a colostomy (bag for defecation) or urostomy (bag for urination). There may be a slow, senior living decrease in your sexual function as well, [...] do not hesitate to call me at [phone] with any other questions or concerns you have. IfI am not here, one of our radiation oncology nurses can assist you or help you get in touch with me. A Radiation Oncology doctor is also respiratory practitioner after our normal hours and on weekends for urgent questions or concerns related to radiation treatments that can not wait until normal business hours. To reach the on-call doctor after-hours, just call and have the bulk system operator page the Radiation Oncologist respiratory practitioner. And, as always, if you experience any [...] 7. Uncontrollable bleeding Que Head MD, MS Senior Underwriter of Radiation Oncology [facility] documented in this encounter Progress Notes * Que Evans MD - 01/08/2020 9:00 AM EDT Images from the original note were not included. Radiation Oncology Prostate Cancer Telephone Consult Note Que Evans MD, MS [facility] [phone] TELE-CONSULTATION DESCRIPTION Based on the recommendations from the [facility] in the setting of the COVID19 [...] : 1945 REFERRING PROVIDER: Alfredo Montoya DO [address] [place] [address] REASON FOR CONSULTATION : Cancer Staging Malignant [...] Prior consultations / recommendations: Dr Thomas - [facility] - 12/01/19 - options of , RP, RT reviewed. Patient interested in learning more about RT. Referral placed. PSA History: 11/03/19 - 12.9 Pathology Results / Location: [facility] Bx 11/23/19 ([facility]) - Gl 4+3 x 1 - Left Gl 3+4 x 3 - Bilat Gl 3+3 x 2 - Bilat Pertinent Imaging Studies: TRUS 11/23/19 - 46 cc gland Prior to starting today's phone consultation, I informed Narcisa that this does constitute a billablevisit, and that [facility] would be submitting a claim to his [...] ??? COLONOSCOPY 2012 date is approximate. at [facility] Dr Ko ??? PROSTATE BIOPSY [...] with all forms of radiotherapy. In the senior living, I explained there is an approximately 2% [...] candidate for any currently open trials at [facility]. On balance, Narcisa wishes to review [...] EDT Office Visit Radiation Oncology at [address] [phone] Taya De La Vega PA [facility] [place] [address] 11/13/2024 2:00 PM EDT Office Visit Hematology/Oncology at [address] [phone] Kirt Kennedy MD [facility] [place] [address] Alem Lazaro APRN [address] [place] [address] [place] [address] documented as of this encounter Visit Diagnoses Diagnosis Malignant neoplasm of prostate documented in this encounter Care Teams Medical Microbiologist Relationship Specialty Start Date End Date Alfredo Montoya DO [address] [place] [address] PCP - General Internal Medicine 12/04/19 04/27/23 documented as of this encounter
--- OUTSIDE RECORDS SUMMARY | 2024-07-07 22:35 | XMS_ITS | Encounter Summary ---
Author Organization [facility] [place] [address] Care Team Providers Care Pattern Lease Inspector Name Role Phone Alfredo Montoya DO Primary Care Provider [phone] Encounter Details Date Type Department Care Team (Late st Contact Info) Description 02/13/2020 Telephone Radiation Oncology at [address] [phone] Noelle Ramirez RN Social History [...] Post-Procedure Phone Note Name: Narcisa Eduardo A#: [id number] Telephone #: Procedure: Placement of Gold Coil [...] any questions for me. Section Radiation Oncology [facility] documented in this encounter Plan of Treatment Upcoming Encounters Date Type Department Care Team (Late st Contact Info) Description 11/09/2024 10:30 AM EDT Office Visit Radiation Oncology at [address] [phone] Taya De La Vega PA [facility] DR [place] [address] 11/13/2024 2:00 PM EDT Office Visit Hematology/Oncology at [address] [phone] Kirt Kennedy MD [facility] DR [place] [address] Alem Lazaro APRN [address] [place] [address] DR HEMATOLOGY AND ONCOLOGY [place], [place] [address] documented as of this encounter Visit Diagnoses Not on filedocumented in this encounter Care Teams Pattern Lease Inspector Relationship Specialty Start Date End Date Alfredo Montoya DO [address] [place] [address] PCP - General Internal Medicine 12/04/19 04/27/23 documented as of this encounter
--- OUTSIDE RECORDS SUMMARY | 2024-07-07 22:35 | XMS_ITS | Encounter Summary ---
Author Organization [facility] [place] [address] Care Team Providers Care Batch Mixer Name Role Phone Alfredo Montoya DO Primary Care Provider [phone] Encounter Details Date Type Department Care Team (Late st Contact Info) Description 02/29/2020 10:30 AM EDT Office Visit Radiation Oncology at [address] [place] [phone] Que Evans MD [address] [place] [address] [place] [address] Malignant neoplasm of prostate Social [...] 02/29/20 Que Evans MD, MS Radiation Oncology [facility] [phone] (paging band ripsaw operator) Pager #[phone] PATIENT IDENTIFICATION Name Narcisa Eduardo Date of 1945 PCP Alfredo Montoya, Referring MD (if different) Dr. 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, Gl [...] EDT Office Visit Radiation Oncology at [address] [phone] Taya De La Vega PA [facility] DR [place] [address] 11/13/2024 2:00 PM EDT Office Visit Hematology/Oncology at [address] [phone] Kirt Kennedy MD [facility] DR [place] [address] Alem Lazaro APRN [address] [place] [address] DR HEMATOLOGY AND ONCOLOGY [place], [place] [phone] documented as of this encounter Visit Diagnoses Diagnosis Malignant neoplasm of prostate documented in this encounter Care Teams Batch Mixer Relationship Specialty Start Date End Date Alfredo Montoya DO [address] [place] [address] PCP - General Internal Medicine 12/04/19 04/27/23 documented as of this encounter
--- OUTSIDE RECORDS SUMMARY | 2024-07-07 22:35 | XMS_ITS | Encounter Summary ---
Author Organization [facility] Address [facility] [place] [address] Care Team Providers Care Unarmed Security Officer Name Role Phone Alfredo Montoya DO Primary Care Provider [phone] Encounter Details Date Type Department Care Team (Late Contact Info) Description 12/07/2019 Telephone Radiation Oncology at [address] [phone] Meng Chauhan Social History Tobacco [...] AM EDT Office Visit Radiation Oncology at [address] [phone] Taya De La Vega PA [facility] [place] [address] 11/13/2024 2:00 PM EDT Office Visit Hematology/Oncology at [address] [phone] Kirt Kennedy MD [facility] DR [place] [address] Alem Lazaro APRN [address] [place] [address] [place] [address] documented as of this encounter Visit Diagnoses Not on filedocumented in this encounter Care Teams Unarmed Security Officer Relationship Specialty Start Date End Date Alfredo Montoya DO [address] [place] [address] PCP - General Internal Medicine 12/04/19 04/27/23 documented as of this encounter
--- OUTSIDE RECORDS SUMMARY | 2024-07-07 22:35 | XMS_ITS | Encounter Summary ---
Author Organization [facility] Address [facility] [place] [address] Care Team Providers Care Government Guard Name Role Phone Robson Robles MD Primary Care Provider [phone] Encounter Details Date Type Department Care Team (Late st Contact Info) Description 12/07/2018 Ancillary Procedure Radiology Library at [facility] [place] [phone] Que Evans MD [address] [place] [address] DR RADIATION ONCOLOGY [place], [place] [phone] Social History Tobacco Use Types Packs/Day Years [...] EDT Office Visit Radiation Oncology at [address] [phone] Taya De La Vega PA [facility] DR HEMATOLOGY [place] [address] 11/13/2024 2:00 PM EDT Office Visit Hematology/Oncology at [address] [phone] Kirt Kennedy MD [facility] DR HEMATOLOGY [place] [address] Alem Lazaro APRN [address] [facility] [address] HEMATOLOGY [place] [address] documented as of this encounter Procedures Procedure Name Priority Date/Time Associated Diagnosis Comments FILM LIBRARY STORAGE ONLY CT CHEST ABDOMEN PELVIS Routine 12/07/2018 12:00 AM EDT documented in this encounter Results * Film Library- Storage Only CT Chest Abdomen Pelvis (12/07/2018 12:00 AM EDT) Narrative [facility] - 12/13/2019 5:24 PM EDT This exam is auto-finalizing. It's purpose is for storage only. Que Evans MD IMG FILM LIBRARY ORD ERABLES [place], [place] documented in this encounter Visit Diagnoses Not on filedocumented in this encounter Care Teams Government Guard Relationship Specialty Start Date End Date Robson Robles MD [address] [facility] [place] [address] PCP - General 03/18/15 08/22/19 documented as of this encounter
--- OUTSIDE RECORDS SUMMARY | 2024-07-07 22:35 | XMS_ITS | Encounter Summary ---
Author Organization [facility] Address [facility] [place] [address] Care Team Providers Care Business Mgr Name Role Phone Alfredo Montoya DO Primary Care Provider [phone] Encounter Details Date Type Department Care Team (Late Contact Info) Description 01/05/2020 Orders Only Hematology/Oncology at [address] [phone] Noelle Ramirez RN Social History [...] EDT Office Visit Radiation Oncology at [address] [phone] Taya De La Vega PA [facility] [place] [address] 11/13/2024 2:00 PM EDT Office Visit Hematology/Oncology at [address] [phone] Kirt Kennedy MD [facility] [place] [address] Alem Lazaro APRN [address] [place] [address] DR [place] [address] documented as of this encounter Visit Diagnoses Not on filedocumented in this encounter Care Teams Business Mgr Relationship Specialty Start Date End Date Alfredo Montoya DO [address] [place] [address] PCP - General Internal Medicine 12/04/19 04/27/23 documented as of this encounter
--- OUTSIDE RECORDS SUMMARY | 2024-07-07 22:35 | XMS_ITS | Encounter Summary ---
Author Organization [facility] Address [facility] [place] [address] Care Team Providers Care Steam Room Attendant Name Role Phone Robson Robles MD Primary Care Provider [phone] Encounter Details Date Type Department Care Team (Latest Contact Info) Description 12/09/2015 1:53 PM EDT - 12/09/2015 11:59 PM EDT Hospital [place] [phone] Discharge Disposition: Home Social History Tobacco Use [...] EDT Office Visit Radiation Oncology at [address] [phone] Taya De La Vega PA [facility] [address] [place] [address] 11/13/2024 2:00 PM EDT Office Visit Hematology/Oncology at [address] [phone] Kirt Kennedy MD [facility] DR [place] [address] Alem Lazaro APRN [address] [place] [address] DR HEMATOLOGY [place] [address] documented as of this encounter Procedures Procedure Name Priority Date/Time Associated Diagnosis Comments FLOW CYTOMETRY REPORT Routine 12/09/2015 3:11 PM EDT IMMUNOPHENOTYPING FLOW CYTOMETRY (BLOOD) Routine 12/09/2015 11:35 AM EDT documented in this encounter Results * Flow Cytometry Report (12/09/2015 3:11 PM EDT) Pathologist [facility] Flow Cytometry Report [id number] ?[place] The signing pathologist has (i) [...] by the Clinical Flow Cytometry Laboratory at [facility]. It has not been cleared [...] high complexity clinical laboratory testing. SPECIMEN PROCESSING [id number] Cells for immunophenotypic analysis were derived from inquinal lymph node biopsy. CD45 vs side scatter gating was utilized to identify a lymphoid analysis region that comprises approximately 85-88% of all cells. The following markers were assessed: CD3, CD5, CD10, CD19, CD45, CD56, kappa light chain, and lambda light chain. CLINICAL INFORMATION HX of [facility] 12/09/2015 3:11 PM EDT Anais Escalante MD PATHOLOGY/CYTOLOGY O RDERABLES Performing Organization Address City/[facility]/ZIP Co de Phone Number [facility] [place] [address] * Immunophenotyping Flow Cytometry (12/09/2015 11:35 AM EDT) Immunophenotyping Flow See Comment [facility] Comment: When completed by the Pathologist, the Flow Cytometry Report ([id number]) will display under the Pathology Results section within eDH. Specimen of unknown material (specimen) Other / Unknown 12/09/2015 11:35 AM EDT 12/09/2015 2:43 PM EDT Narrative Resulting Agency Comment Spec In Lab Anais Escalante MD HEMATOLOGY ORDERABLE S Performing Organization Address City/[facility]/ZIP Co de Phone Number [facility] [place] [address] documented in this encounter Visit Diagnoses Not on filedocumented in this encounter Care Teams Steam Room Attendant Relationship Specialty Start Date End Date Robson Robles MD [address] [facility] [facility] [place] [address] PCP - General 03/18/15 08/22/19 documented as of this encounter
--- OUTSIDE RECORDS SUMMARY | 2024-07-07 22:35 | XMS_ITS | Encounter Summary ---
Author Organization [facility] [place] [address] Care Team Providers Care Hydrochloric Manufacturing Supervisor Name Role Phone Alfredo Montoya DO Primary Care Provider [phone] Reason for Visit * Reason Onset Date Comments Other 02/13/2020 covid screening Encounter Details Date Type Department Care Team (Late st Contact Info) Description 02/13/2020 Telephone Radiation Oncology at [address] [phone] Joana Roberts MSW OFFICE OF [...] in the office. If you have a passenger coach driver for your appointment we ask that [...] symptomatic you will need to wear a [facility]-issued mask. PHONE SCREENING: ??? In order for [...] EDT Office Visit Radiation Oncology at [address] [phone] Taya De La Vega PA [facility] [place] [address] 11/13/2024 2:00 PM EDT Office Visit Hematology/Oncology at [address] [phone] Kirt Kennedy MD [facility] DR [place] [address] Alem Lazaro APRN [address] [place] [address] DR HEMATOLOGY AND ONCOLOGY [place], [place] [address] documented as of this encounter Visit Diagnoses Not on filedocumented in this encounter Care Teams Hydrochloric Manufacturing Supervisor Relationship Specialty Start Date End Date Alfredo Montoya DO [address] [place] [address] PCP - General Internal Medicine 12/04/19 04/27/23 documented as of this encounter
--- OUTSIDE RECORDS SUMMARY | 2024-07-07 22:35 | XMS_ITS | Encounter Summary ---
Author Organization [facility] Address [facility] [place] [address] Care Team Providers Care Oil Pit Attendant Name Role Phone Alfredo Montoya DO Primary Care Provider [phone] Encounter Details Date Type Department Care Team (Late st Contact Info) Description 02/02/2020 Refill Radiation Oncology at [address] [phone] Noelle Ramirez RN Malignant neoplasm [...] receiving medications ( dex and [place]quin) from [place]. Prescription for steroid: to prevent swelling at [...] earlier when we arranged for medications with [place], but he now feels it may be helpful.This prescription was sent to [facility] 02/02/20. His will drive him. THE DAY [...] other concerns. Future Appointments: ?? MRI at [facility] : You will receive separate instructions specifically from [facility] concerning your exact arrival time and what you need to do to prepare for this. Date: 02/13 at [facility] at 7:50 , per patient. ?? [...] restrictions with eating. How to reach us: [facility] [phone] For weekends and after hours: Call [facility] ask for the senior data integration developer radiation oncologist documented in this encounter Plan of Treatment Upcoming Encounters Date Type Department Care Team (Late st Contact Info) Description 11/09/2024 10:30 AM EDT Office Visit Radiation Oncology at [address] [phone] Taya De La Vega PA [facility] DR HEMATOLOGY [place] [address] 11/13/2024 2:00 PM EDT Office Visit Hematology/Oncology at [address] [phone] Kirt Kennedy MD [facility] DR HEMATOLOGY [place] [address] Alem Lazaro APRN [address] [place] [address] DR HEMATOLOGY [place] [address] documented as of this encounter Visit Diagnoses Diagnosis Malignant neoplasm of prostate documented in this encounter Care Teams Oil Pit Attendant Relationship Specialty Start Date End Date Alfredo Montoya DO [address] [place] [id number] PCP - General Internal Medicine 12/04/19 04/27/23 documented as of this encounter
--- OUTSIDE RECORDS SUMMARY | 2024-07-07 22:35 | XMS_ITS | Encounter Summary ---
Author Organization [facility] [place] [address] Care Team Providers Care Ediphone Operator Name Role Phone Alfredo Montoya DO Primary Care Provider [phone] Reason for Visit * Consultation (Routine) - Specialty Diagnoses / Procedures Referred By Rogers t Referred To Contact Radiation Oncology Diagnoses Malignant neoplasm of prostate Procedures Simulation for Radiation Therapy Planning Que Evans MD [address] [place] [address] [place] [address] [facility] Rad Onc Office [address] [place] [phone] Referral ID Status Reason Start Date Expiration Date V isits Requested Visits Authorized [id number] Consult, Test & Treat 12/01/2019 05/29/2020 99 99 Encounter Details Date Type Department Care Team (Late st Contact Info) Description 02/14/2020 11:00 AM EDT Ancillary Appointment Radiation Oncology at [address] [phone] Que Evans MD [address] [place] [address] [place] [address] Social History Tobacco Use Types [...] kaushal to help manage the side effects. [employer] - They take the doctors radiation prescription [...] a well balanced diet is recommended. The international logistics analyst and nurse will inform you of any [...] to 5 PM [facility] phone# [phone] [facility] If you have questions about your radiation [...] in injury A Radiation Oncology doctor is environmental scientists after our normal hours and on weekends. To call for urgent medical issues from radiation treatments that can not wait until normal business hours, please call for either location and have the top precipitator operator helper page the Radiation Oncologist environmental scientists. documented in this encounter Progress Notes * Que Evans MD - 02/14/2020 11:00 AM EDT Simulation Note for External Beam Radiation Treatment Planning [facility] Javi Eduardo is a 74 y.o. year [...] of any short term side effects or jail complications of therapy. I anticipate his prescription [...] EDT Office Visit Radiation Oncology at [address] [phone] Taya De La Vega PA [facility] [place] [address] 11/13/2024 2:00 PM EDT Office Visit Hematology/Oncology at [address] [phone] Kirt Kennedy MD [facility] DR [place] [address] Alem Lazaro APRN [address] [place] [address] DR HEMATOLOGY AND ONCOLOGY [place], [place] [id number] Scheduled Orders Name Type Priority Associated Diagnoses Orde r Schedule Simulation for Radiation Therapy Planning Procedures Routine Malignant neoplasm of prostate Ordered: 01/18/2020 documented as of this encounter Visit Diagnoses Not on filedocumented in this encounter Care Teams Ediphone Operator Relationship Specialty Start Date End Date Alfredo Montoya DO [address] [place] [id number] PCP - General Internal Medicine 12/04/19 04/27/23 documented as of this encounter
--- OUTSIDE RECORDS SUMMARY | 2024-07-07 22:35 | XMS_ITS | Encounter Summary ---
Author Organization [facility] Address [facility] [place] [address] Care Team Providers Care Director Alliance Marketing Name Role Phone Alfredo Montoya DO Primary Care Provider [phone] Encounter Details Date Type Department Care Team (Late st Contact Info) Description 01/18/2020 Notes Only Radiation Oncology at [address] [phone] Noelle Ramirez, RN Social History Tobacco Use Types Packs/Day Years Used Date Smoking Tobacco: Every Day Cigarettes 1 60.9 Started: 1963 Alcohol Use Standard Drinks/Week Comments [...] soon Arrival Time: Time of Procedure: Location: [facility] Why gold coils? You and your [...] your PCP ( Dr Montoya at the [facility]) celso whitehead Plavix managment Prescriptions to get filled per Dr Evans :at the [place] Prescription for steroid: to prevent swelling at [...] any other concerns. How to reach us: [facility] [phone] For weekends and after hours: Call [facility] ask for the community liaison officer radiation oncologist documented in this encounter Plan of Treatment Upcoming Encounters Date Type Department Care Team (Late st Contact Info) Description 11/09/2024 10:30 AM EDT Office Visit Radiation Oncology at [address] [phone] Taya De La Vega PA [facility] DR [place] [address] 11/13/2024 2:00 PM EDT Office Visit Hematology/Oncology at [address] [phone] Kirt Kennedy MD [facility] DR [place] [address] Alem Lazaro APRN [address] [place] [address] DR HEMATOLOGY AND ONCOLOGY [place], [place] [address] documented as of this encounter Visit Diagnoses Diagnosis Malignant neoplasm of prostate documented in this encounter Care Teams Director [employer] Marketing Relationship Specialty Start Date End Date Alfredo Montoya DO [address] [place] [address] PCP - General Internal Medicine 12/04/19 04/27/23 documented as of this encounter
--- OUTSIDE RECORDS SUMMARY | 2024-07-07 22:35 | XMS_ITS | Encounter Summary ---
Author Organization [facility] Address [facility] [place] [address] Care Team Providers Care Scientific Informatics Project Leader Name Role Phone Unknown Primary Care Provider Unavailabl e Encounter Details Date Type Department Care Team (Late st Contact Info) Description 03/07/2015 Orders [place] [phone] Tavo Dumont MD [facility] [place] [address] Social History Tobacco Use Types Packs/Day Years Used Date Smoking Tobacco: Never Assessed Sex and Gender Information Value Date Recorded Sex Assigned at Not on file Gender Identity Not on file Sexual Orientation Not on file documented as of this encounter Progress Notes * Tavo Dumont MD - 03/07/2015 9:16 AM EDT FOCUSED H&P and PRE-PROCEDURE VIR NOTE: Referring Physician: Je Durham ([facility]) Planned Procedure: Para-aortic node biopsy Procedure [...] History: Father : prostate ca Physical Exam: [facility]: T 36.1, P 78, BP 146/82 Pnding Labs: [facility] 03/05/15: Cr 0.9 Prior Imaging: CT [...] EDT Office Visit Radiation Oncology at [address] [phone] Taya De La Vega PA [facility] [place] [address] 11/13/2024 2:00 PM EDT Office Visit Hematology/Oncology at [address] [phone] Kirt Kennedy MD [facility] [place] [address] Alem Lazaro APRN [address] [place] [address] DR [place]Y [place] [address] documented as of this encounter Visit Diagnoses Not on filedocumented in this encounter Care Teams Scientific Informatics Project Leader Relationship Specialty Start Date End Date Unknown None PCP - General 07/15/10 03/17/15 documented as of this encounter
--- OUTSIDE RECORDS SUMMARY | 2024-07-07 22:35 | XMS_ITS | Encounter Summary ---
Author Organization [facility] [place] [address] Care Team Providers Care Second Watch Sergeant Name Role Phone Robson Robles MD Primary Care Provider [phone] Encounter Details Date Type Department Care Team (Late Contact Info) Description 03/08/2015 Orders Only Hematology/Oncology at [address] [phone] Al Mancilla MD [address] [place] [phone] Social History Tobacco Use Types Packs/Day Years [...] EDT Office Visit Radiation Oncology at [address] [phone] Taya De La Vega PA [facility] DR [place] [address] 11/13/2024 2:00 PM EDT Office Visit Hematology/Oncology at [address] [phone] Kirt Kennedy MD [facility] DR [place] [address] Alem Lazaro, MIDDLEWARE DEVELOPER [address] HEMATOLOGY [place] [address] documented as of this encounter Procedures Procedure [...] is a Non-reportable exam Al Mancilla MD [facility] FILM LIBRARY ORD ERABLES documented in this encounter Visit Diagnoses Not on filedocumented in this encounter Care Teams Second Watch Sergeant Relationship Specialty Start Date End Date Robson Robles MD [address] [facility] [place], [place] [phone] PCP - General 03/18/15 08/22/19 documented as of this encounter
--- OUTSIDE RECORDS SUMMARY | 2024-07-07 22:35 | XMS_ITS | Encounter Summary ---
Author Organization [facility] Address [facility] [place] [address] Care Team Providers Care Cloth Cutting Inspector Name Role Phone Naty Robles MD Primary Care Provider [phone] Reason for Visit * Reason Comments Advice Only Encounter Details Date Type Department Care Team (Late st Contact Info) Description 04/03/2015 2:00 PM EDT Office Visit [place] [phone] Eileen Cheung MD [facility] [address] HEMATOLOGY [place] [address] Follicular lymphoma Discharge Disposition: Home Social History [...] - 04/03/2015 2:20 PM EDT Hematology Clinic [facility] [place] [address] NEW PATIENT EVALUATION PROBLEM LIST: Patient Active [...] in consultaion from Dr. Je Durham at [facility]. The patient presented with what was thought to be a right flank mass to Dr. Je Durham in [place]. He denies any B symptoms. It was [...] yrs and daughter Bertha. Enjoys working in [employer]. Reads a lot. Splits wood with spltter occasionally. 3 children - 43, 40 35 yo. 1 granddaughter 23 and one grandson six mos. 2 great grandchildren age 7 &2. 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 Worked for [employer]. Was in [place] [employer] [facility] and at [employer] with [employer]. + Agent [place] exposure. ETOH: 4-6 beers per day. Drinks [...] This note was written or modified using [employer] voice recognition software. The final note was screened for mistakes. Please excuse any remaining errors. total time: time in counselling: Copy NATY ROBLES MD (General) documented in this encounter Plan of Treatment Upcoming Encounters Date Type Department Care Team (Late st Contact Info) Description 11/09/2024 10:30 AM EDT Office Visit Radiation Oncology at [address] [phone] Taya De La Vega PA [facility] DR HEMATOLOGY [place] [address] 11/13/2024 2:00 PM EDT Office Visit Hematology/Oncology at [address] [phone] Kirt Kennedy MD [facility] DR HEMATOLOGY [place] [address] Alem Lazaro APRN [address] [place] [address] [place] [address] documented as of this encounter [...] EDT Follicular lymphoma HIV SCREEN, 4TH GENERATION ([facility]/CGP/APD/NLH) STAT 04/03/2015 3:27 PM EDT Follicular lymphoma [...] Thank you for referring this patient to [facility]. This report was reviewed by Daren Davis at 04/15/2015 5:54 PM Film and interpretation reviewed by the attending Narrative 04/15/2015 5:59 PM EDT EXAMINATION: PET/CT STANDARD (Skull base to Mid-thigh) CLINICAL HISTORY: staging lymphoma TECHNIQUE: Procedure: Following IV injection of 22-obaqze-1-deoxyglucose (FDG) a standard uptake of approximately 60 [...] lymphoma TECHNIQUE: Procedure: Following IV injection of 16-zqxpge-2-deoxyglucose(FDG) a standard uptake of approximately 60 minutes, [...] Thank you for referring this patient to [facility]. This report was reviewed by [...] MD HEMATOLOGY ORDER YESSY Performing Organization Address City/[facility]/ZIP Co de Phone Number CERBRADY PINONENNIUM * [...] Immunoglobulins, Quantitative (04/03/2015 3:27 PM EDT) Pathologist [facility] Immunoglobulin G 949 700 - 1,600 mg/dL CERNER MILLENNIUM IgA 231 70 - 400 mg/dL CERNER MILLENNIUM IgM 158 40 - 230 mg/dL [facility] MILLENNIUM Blood specimen (specimen) 04/03/2015 3:27 PM EDT 04/03/2015 3:43 PM EDT Narrative Resulting Agency Comment Spec In Lab Eileen Cheung MD CHEMISTRY ORDERA [employer] Performing Organization Address [facility] de Phone Number HAFSA PINONENNIUM * Protein Electrophoresis, serum (04/03/2015 3:27 PM EDT) Pathologist [facility] Total Prot Electrophoresis 6.6 6.1 - 8.0 [...] In Lab Eileen Cheung MD CHEMISTRY ORDERA [employer] Performing Organization Address [facility] Co de Phone Number HAFSA MCPHERSONIUM * HIV Screen, 4th Generation (04/03/2015 3:27 PM EDT) Pathologist [facility] HIV Ab/Ag Screen Negative Negative [facility] MILLENNIUM Comment: This 4th Generation HIV [...] MD CHEMISTRY ORDERA BLES Performing Organization Address [facility] de Phone Number [facility] * Hepatitis C Antibody (04/03/2015 3:27 PM EDT) Hepatitis C Antibody Negative Negative [facility] Blood specimen (specimen) 04/03/2015 3:27 PM EDT 04/03/2015 3:43 PM EDT Narrative Resulting Agency Comment Spec In Lab Eileen Cheung MD CHEMISTRY ORDERA BLES Performing Organization Address [facility] de Phone Number [facility] * Hepatitis B Surface Antigen (04/03/2015 3:27 PM EDT) Hepatitis B Surface Antigen Negative Negative [facility] Blood specimen (specimen) 04/03/2015 3:27 PM EDT 04/03/2015 3:43 PM EDT Narrative Resulting Agency Comment Spec In Lab Eileen Cheung MD CHEMISTRY ORDERA BLES Performing Organization Address [facility] de Phone Number [facility] * Hepatitis B Surface Antibody (04/03/2015 3:27 PM EDT) Hepatitis B Surface Antibody Negative [facility] Comment: Expected Results: Vaccinated: Positive Unvaccinated: Negative [...] MD CHEMISTRY ORDERA BLEHusam Performing Organization Address [facility] Co de Phone Number [facility] * Hepatitis B Core Antibody, Total (04/03/2015 3:27 PM EDT) Hepatitis B Core Antibody Negative Negative [facility] Blood specimen (specimen) 04/03/2015 3:27 PM EDT 04/03/2015 3:43 PM EDT Narrative Resulting Agency Comment Spec In Lab Eileen Cheung MD CHEMISTRY ORDERA BLEHusam Performing Organization Address [facility] de Phone Number [facility] * Lactate Dehydrogenase (04/03/2015 3:27 PM EDT) Lactate Dehydrogenase 160 110 - 220 unit/L [facility] Blood specimen (specimen) 04/03/2015 3:27 PM EDT 04/03/2015 3:43 PM EDT Narrative Resulting Agency Comment Spec In Lab Eileen Cheung MD CHEMISTRY ORDERA BLES Performing Organization Address [facility] de Phone Number [facility] * (ABNORMAL) Comprehensive metabolic panel (non-fasting) (04/03/2015 3:27 PM EDT) Glucose 117 65 - 199 mg/dL [facility] Comment:Diabetes: >=200 mg/d L plus symptoms Blood Urea Nitrogen 9(L) 10 - 20 mg/dL [facility] MILLENNIUM Creatinine 0.93 0.80 - 1.50 mg/dL [facility] MILLENNIUM Comment: Please note that the pediatric reference intervals supplied above were not validated at [facility]. Results from pediatric patients should be interpreted in conjunction to the patient's age, height and muscle mass. Sodium 142 135 - 145 mmol/L [facility] Potassium 3.9 3.5 - 5.0 mmol/L [facility] Comment: Please note: ??Patients with WBC >100,000 [...] the following links into your internet browser. [email or web address] Blood specimen (specimen) 04/03/2015 3:27 PM EDT 04/03/2015 3:43 PM EDT Narrative Resulting Agency Comment Spec In Lab Eileen Cheung MD CHEMISTRY ORDERA TER[facility] Organization Address City/State/ZIP Co de Phone Number CERNER MILLENNIUM documented in this encounter Visit Diagnoses Diagnosis Follicular lymphoma Nodular lymphoma, unspecified site, extranodal and solid organ sites Follicular lymphoma Nodular lymphoma, unspecified site, extranodal and solid organ sites documented in this encounter Care Teams Cloth Cutting Inspector Relationship Specialty Start Date End Date Naty Robles MD [address] [place] [address] PCP - General 03/18/15 08/22/19 documented as of this encounter
--- OUTSIDE RECORDS SUMMARY | 2024-07-07 22:35 | XMS_ITS | Encounter Summary ---
Author Organization [facility] Address [facility] [place] [address] Care Team Providers Care Carpenter Assistant Installer Name Role Phone Robson Robles MD Primary Care Provider [phone] Encounter Details Date Type Department Care Team (Latest Contact Info) Description 12/11/2015 1:53 PM EDT - 12/11/2015 11:59 PM EDT Hospital [place] [phone] Discharge Disposition: Home Social History Tobacco Use [...] EDT Office Visit Radiation Oncology at [address] [phone] Taya De La Vega PA [facility] DR HEMATOLOGY [place] [address] 11/13/2024 2:00 PM EDT Office Visit Hematology/Oncology at [address] [phone] Kirt Kennedy MD [facility] DR [place]EMATOLOG[place] [address] Alem Lazaro APRN [address] [place] [address] [place] [address] documented as of this encounter Procedures Procedure Name Priority Date/Time Associated Diagnosis Comments IMMUNOPHENOTYPING FLOW CYTOMETRY (BLOOD) Routine 12/11/2015 1:27 PM EDT FLOW CYTOMETRY REPORT Routine 12/11/2015 1:27 PM EDT documented in this encounter Results * Flow Cytometry Report (12/11/2015 1:27 PM EDT) Flow Cytometry Report [id number] ?Location: [facility] The signing pathologist has (i) examined the [...] polytypic expression of surface immunoglobulin light chain (Shumway:Lambda ratio at 0.9). The T-cells are an admixture of CD4+ and CD8+ T lymphocytes (ratio of 1.3). No loss or atypical intensity distributions are seen for any alvarado T antigen (CD2, 3, 4+8, 5, 7). There is no increase in FF24-laevlhbx/CD3-ne g NK cells. Flow analysis is an ancillary study. A definite diagnosis requires correlation with the morphologic features of this process and if necessary, correlation with other ancillary studies like immunohistochemistry , enzyme cytochemistry and/or cyto/molecular genetics. This test was developed and its performance characteristics determined by the Clinical Flow Cytometry Laboratory at [facility]. It has not been cleared or approved [...] complexity clinical laboratory testing. SPECIMEN PROCESSING [id number] Cells for immunophenotypic analysis were derived from bone marrow aspirate. ??CD45 vs side scatter gating was utilized to identify a lymphoid analysis region that comprises approximately 7-8% of all cells. The following markers were assessed: CD2, CD3, CD4, CD5, CD7, CD8, CD10, CD19, CD45, CD56, kappa light chain, and lambda light chain. CLINICAL INFORMATION hx of [facility] 12/11/2015 1:27 PM EDT Denise Stone MD PATHOLOGY/CYTOLOGY O RDERATERRI [facility] [place] [address] * Immunophenotyping Flow Cytometry (12/11/2015 1:27 PM EDT) Immunophenotyping Flow See Comment [facility] Comment: When completed by the Pathologist, the Flow Cytometry Report ([id number]) will display under the Pathology Results section within eDH. Specimen of unknown material (specimen) Other / Unknown 12/11/2015 1:27 PM EDT 12/12/2015 3:02 PM EDT Narrative Resulting Agency Comment Spec In Lab Denise Stone MD HEMATOLOGY ORDERABLE S [facility] [place] [address] documented in this encounter Visit Diagnoses Not on filedocumented in this encounter Care Teams Carpenter Assistant Installer Relationship Specialty Start Date End Date Robson Robles MD [address] [place] [address] PCP - General 03/18/15 08/22/19 documented as of this encounter
--- OUTSIDE RECORDS SUMMARY | 2024-07-07 22:35 | XMS_ITS | Encounter Summary ---
Author Organization [facility] [place] [address] Care Team Providers Care Outsole Splicer Name Role Phone Alfredo Montoya DO Primary Care Provider [phone] Encounter Details Date Type Department Care Team (Late st Contact Info) Description 01/31/2020 Telephone Radiation Oncology at [address] [phone] Noelle Ramirez RN Social History [...] AM EDT Radiation Oncology Nurse Telephone Note [facility] [place] [place] Received telephone call from [place] PCP's office regarding Plavix management with upcoming [...] EDT Office Visit Radiation Oncology at [address] [phone] Taya De La Vega PA [facility] DR HEMATOLOGY [place] [address] 11/13/2024 2:00 PM EDT Office Visit Hematology/Oncology at [address] [phone] Kirt Kennedy MD [facility] DR HEMATOLOG[place] [address] Alem Lazaro APRN [address] [place] [address] DR HEMATOLOGY AND ONCOLOGY [place], [place] [phone] documented as of this encounter Visit Diagnoses Not on filedocumented in this encounter Care Teams Outsole Splicer Relationship Specialty Start Date End Date Alfredo Montoya DO [address] [place] [address] PCP - General Internal Medicine 12/04/19 04/27/23 documented as of this encounter
--- OUTSIDE RECORDS SUMMARY | 2024-07-07 22:35 | XMS_ITS | Encounter Summary ---
Author Organization [facility] Address [facility] [place] [address] Care Team Providers Care Seismology Technical Officer Name Role Phone Naty Robles MD Primary Care Provider [phone] Reason for Visit * Reason Comments Follow-up Encounter Details Date Type Department Care Team (Late st Contact Info) Description 04/22/2015 2:00 PM EDT Follow-Up Hematology [place] [phone] Eileen Teran MD [facility] DR [place] [address] Follicular lymphoma Discharge Disposition: Home Social History [...] 04/22/2015 1:24 PM EDT . Hematology Clinic [facility] MARIA LUISA [place] [address] NEW PATIENT EVALUATION PROBLEM LIST: Patient Active [...] in consultaion from Dr. Je Durham at [facility]. The patient presented with what was thought to be a right flank mass to Dr. Je Durham in [place]. He denies any B symptoms. It was [...] &2. 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 Was in [place] and at [email or web address] with [employer]. + [place] exposure. ETOH: 4-6 beers per day. Drinks [...] area is 2.10 meters squared. GENERAL: Narcisa Winthrop appears well and is in no acute [...] lymphoma TECHNIQUE: Procedure: Following IV injection of 25-wwrnah-7-deoxyglucose (FDG) a standard uptake of approximately 60 [...] and indications for treatmetn. Pt pursuing [place] [facility] Reviewed renal lesion -will [...] This note was written or modified using [employer] voice recognition software. The final note was [...] EDT Office Visit Radiation Oncology at [address] [phone] Taya De La Vega PA [facility] DR [place] [address] 11/13/2024 2:00 PM EDT Office Visit Hematology/Oncology at [address] [phone] Kirt Kennedy MD [facility] [place] [address] Alem Lazaro APRN [address] [place] [address] HEMATOLOGY AND ONCOLOGY [place], [place] [phone] documented as of this encounter Visit Diagnoses Diagnosis Follicular lymphoma Nodular lymphoma, unspecified site, extranodal and solid organ sites documented in this encounter Care Teams Seismology Technical Officer Relationship Specialty Start Date End Date Naty Robles MD [phone] [facility] [place], [place] [address] PCP - General 03/18/15 08/22/19 documented as of this encounter
--- OUTSIDE RECORDS SUMMARY | 2024-07-07 22:35 | XMS_ITS | Encounter Summary ---
Author Organization [facility] [place] [address] Care Team Providers Care Mutual Fund Analyst Name Role Phone Alfredo Montoya DO Primary Care Provider [phone] Encounter Details Date Type Department Care Team (Late st Contact Info) Description 01/11/2020 Telephone Radiation Oncology at [address] [phone] Feilciano Almaraz Social History Tobacco Use Types Packs/Day [...] EDT Office Visit Radiation Oncology at [address] [phone] Taya De La Vega PA [facility] HEMATOLOGY [place] [address] 11/13/2024 2:00 PM EDT Office Visit Hematology/Oncology at [address] [phone] Kirt Kennedy MD [facility] DR HEMATOLOGY [place] [address] Alem Lazaro APRN [address] [place] [address] DR HEMATOLOGY [place] [address] documented as of this encounter Visit Diagnoses Not on filedocumented in this encounter Care Teams Mutual Fund Analyst Relationship Specialty Start Date End Date Alfredo Montoya DO [address] [place] [address] PCP - General Internal Medicine 12/04/19 04/27/23 documented as of this encounter
--- OUTSIDE RECORDS SUMMARY | 2024-07-07 22:35 | XMS_ITS | Encounter Summary ---
Author Organization [facility] [place] [address] Care Team Providers Care Sand And Gravel Plant Operator Name Role Phone Alfredo Montoya DO Primary Care Provider [phone] Reason for Referral * Consultation (Routine) - Specialty Diagnoses / Procedures Referred By Contaryan t Referred To Contact Radiation Oncology Diagnoses Malignant neoplasm of prostate Procedures Simulation for Radiation Therapy Planning Que Evans MD [address] [place] [address] [place] [address] [facility] Rad Onc Office [address] [place] [phone] Referral ID Status Reason Start Date Expiration Date V isits Requested Visits Authorized [id number] Consult, Test & Treat 12/01/2019 05/29/2020 99 99 Encounter Details Date Type Department Care Team (Late st Contact Info) Description 01/18/2020 8:30 AM EDT Office Visit Radiation Oncology at [address] [phone] Que Evans MD [address] [place] [address] [place] [address] Malignant neoplasm of prostate Social [...] shorter course and while safe in the technician terminal and repeater it might be associated with slightly higher [...] of completion radiation. 6. SIDE EFFECTS - Residential: These can include be permanent damage of the radiated tissues, including the rectum/bowel, bladder, prostate and surrounding tissues. Potential serious injury is rare, but can include poor wound healing, bleeding, or destruction of healthy tissue that may require surgery to repair and may result in a colostomy (bag for defecation) or urostomy (bag for urination). There may be a slow, technician terminal and repeater decrease in your sexual function as well, [...] do not hesitate to call me at [phone] with any other questions or concerns you have. IfI am not here, one of our radiation oncology nurses can assist you or help you get in touch with me. A Radiation Oncology doctor is also second vp hr assessment after our normal hours and on weekends for urgent questions or concerns related to radiation treatments that can not wait until normal business hours. To reach the on-call doctor after-hours, just call and have the explosive operator fuse page the Radiation Oncologist second vp hr assessment. And, as always, if you experience any [...] 7. Uncontrollable bleeding Que Head MD, MS Electrician Maintenance of Radiation Oncology [facility] documented in this encounter Progress Notes * Que Evans MD - 01/18/2020 8:30 AM EDT Radiation Oncology Established Patient Followup Note Que Evans MD, MS [facility] Patient Identification: Narcisa Eduardo is a [...] minute visit was spent with the patient [id number] reviewing his interval medical history and answering questions related to his prostate cancer. documented in this encounter Plan of Treatment Upcoming Encounters Date Type Department Care Team (Late st Contact Info) Description 11/09/2024 10:30 AM EDT Office Visit Radiation Oncology at [address] [phone] Taya De La Vega PA [facility] DR HEMATOLOGY [place] [address] 11/13/2024 2:00 PM EDT Office Visit Hematology/Oncology at [address] [phone] Kirt Kennedy MD [facility] DR HEMATOLOGY [place] [address] Alem Lazaro APRN [address] [place] [address] DR HEMATOLOGY AND ONCOLOGY [place], [place] [address] Scheduled Orders Name Type Priority Associated Diagnoses Orde r Schedule Simulation for Radiation Therapy Planning Procedures Routine Malignant neoplasm of prostate Ordered: 01/18/2020 documented as of this encounter Visit Diagnoses Diagnosis Malignant neoplasm of prostate documented in this encounter Care Teams Sand And Gravel Plant Operator Relationship Specialty Start Date End Date Alfredo Montoya DO [address] [place] [address] PCP - General Internal Medicine 12/04/19 04/27/23 documented as of this encounter
[2024-07-07 22:37] LABS: Absolute Eosinophil Count 0.01 10^3/uL (0.0-0.7); Absolute Neutrophil Count 12.26 10^3/uL (1.2-6.7)
[2024-07-07 22:41] LABS: WBC >50 HPF (0-5)
[2024-07-07 22:42] LABS: C & S Indicated? C&S Done As Ordered
[2024-07-07 22:48] LABS: ALT 18 U/L (16-63); AST 18 U/L (15-37); Albumin 2.7 g/dL (3.4-5.0); Alkaline Phosphatase 150 U/L (46-116); Anion Gap 9.3 mmol/L (3-11); BUN 29 mg/dL (7-18); Bilirubin, Total 1.07 mg/dL (0.2-1.0); CO2 31.7 mmol/L (21.0-32.0); CREATININE 1.5 mg/dL (0.70-1.30); Calcium 9.8 mg/dL (8.5-10.1); Chloride 99 mmol/L (98-107); Estimated GFR 47.36 (mL/min/1.73m2); Glucose 138 mg/dL (74-106); Potassium 3.3 mmol/L (3.5-5.1); Sodium 140 mmol/L (136-145); Total Protein 7.1 g/dL (6.4-8.2)
[2024-07-07] MEDS: CIPROFLOXACIN 400 MG/200 ML BAG 200 MG IVPB (23:00)
[2024-07-07 23:11] LABS: Bilirubin Negative (Negative); Blood Moderate (Negative); Clarity Clear (Clear); Glucose Negative (Negative); Ketones Negative (Negative); Leukocyte Esterase Large (Negative); Nitrite Positive (Negative); Urobilinogen 0.2 mg/dL (Up to 0.2); pH 6.5 (5-8)
[2024-07-07 23:17] LABS: Bacteria Few HPF (Negative); Casts Negative LPF (Negative); Crystals Negative HPF (Negative); Epithelial Cells Rare HPF (Negative); Mucus Negative (Negative); WBC >50 HPF (0-5)
--- NOTE | 2024-07-07 23:17 | DI.VRAD_ITS ---
PROCEDURE INFORMATION: Exam: XR Chest Exam date and time: 07/07/2024 10:42 PM Age: 78 years old Clinical indication: Other: Altered mental status TECHNIQUE: Imaging protocol: Radiologic exam of the chest. Views: 1 view. COMPARISON: CR XR PORTABLE CHEST AP 05/24/2024 7:57 PM FINDINGS: Lungs: Severe hyperinflation consistent with underlying emphysema/COPD. No acute infiltrates or airspace consolidation. No acute edema. Pleural spaces: No pleural effusion. No pneumothorax. Heart/Mediastinum: Normal heart size. No mediastinal widening. Bones/joints: Degenerative thoracic spine. IMPRESSION: 1. Hyperinflation suggesting underlying emphysema/COPD. 2. No acute lung infiltrates or edema. Dictated and Authenticated by: Pan Escobedo MD. Ordering:YASMINE Villaseñor MD
[2024-07-07 23:18] LABS: C & S Indicated? No
--- NOTE | 2024-07-07 23:23 | W.PM.HP.N ---
Date of service: 07/07/24 Time of Service: 23:24 Assessment and Plan Assessment and plan (1) Sepsis: Start date: 07/07/24 Status: Acute Assessment and plan: This is a 78-year-old [place] gentleman reporting to the ED because of increasing confusion from baseline with vascular dementia chronically status post CVAs on antiseizure medicine. He does have recurrent UTI which is the probable source of sepsis with no fever but elevated WBC and tachycardia. He also has borderline hypotension with increase in his baseline creatinine. To be slightly dehydrated. He also has hypokalemia. He has intermittent hypomagnesemia but this is stable and normal. He will be admitted for IV antibiotic therapy for UTI and fluid resuscitation with normal saline and potassium supplement at 150 cc/h ordered closely for fluid overload. He does expect to return home to his family care and is approaching hospice with palliative care consultation placed during his hospital stay and also being [facility]. Patient is a DNI. Qualifiers: Acute renal failure type: with other specified pathological lesion Sepsis acute organ dysfunction status: with acute organ dysfunction Sepsis type: methicillin resistant Staphylococcus aureus Severe sepsis acute organ dysfunction type: acute renal failure Severe sepsis shock status: without septic shock Qualified Code(s): A41.02 - Sepsis due to Methicillin resistant Staphylococcus aureus; R65.20 - Severe sepsis without septic shock; N17.8 - Other acute kidney failure (2) Urinary tract infection: Start date: 07/07/24 Status: Acute Assessment and plan: Patient appears to have acute UTI with last pathogen being MRSA. Patient is on intravenous Cipro for milligrams every 12 hours with linezolid 600 mg twice a day. Follow-up urine cultures and change antibiotics coverage accordingly as switched to oral therapy. Continue indwelling Mckeon catheter which was exchanged in the ED. Qualifiers: Hematuria presence: with hematuria Urinary tract infection type: acute cystitis Qualified Code(s): N30.01 - Acute cystitis with hematuria (3) Sacral decubitus ulcer: Status: Chronic Assessment and plan: Continue wound care while hospitalized and continue with [facility]. Patient is basically bedridden at this time. Qualifiers: Pressure injury stage: stage 3 Qualified Code(s): L89.153 - Pressure ulcer of sacral region, stage 3 (4) Hypertension: Assessment and plan: Not on outpatient medical therapy at this time with weight loss and decreased activity, low systolic blood pressures on IV fluid resuscitation. Qualifiers: Hypertension type: primary hypertension Qualified Code(s): I10 - Essential (primary) hypertension (5) History of follicular lymphoma: Status: Chronic Assessment and plan: Not active as well as treatment and surveyed annually. Recently placed on prednisone and this most likely was for his respiratory status being a daily smoker with COPD now on chronic inhalers. Will continue methylprednisolone and could call [facility] to check whether this is actually needed with patient initially not initiating but prescribed this. (6) Prostate cancer: Status: Chronic Assessment and plan: Status post radiation therapy on annual surveillance with chronic bladder outlet obstruction and indwelling Mckeon catheter. Mckeon catheter exchanged and UTI being treated. (7) Seizure disorder as sequela of cerebrovascular accident: Status: Chronic Assessment and plan: Continue antiseizure medications. History of Present Illness History of Present Illness Chief Complaint: Change in urine color and chronic Mckeon catheter and increased confusion. Narrative: This is a 78-year-old male patient [facility] and is a DNR and they are exposed to agent orange please status post CVA with hemorrhage including subarachnoid hemorrhage and subdural hematoma, seizures secondary to CVA, prostate cancer status post radiation therapy on surveillance only with bladder outlet obstruction and chronic indwelling Mckeon catheter with recurrent UTIs, follicular lymphoma treated in 2016 on annual surveillance, A with stable 4.6 cm thoracic aortic aneurysm, PTSD secondary to work time activity with depression and recurrent UTI with indwelling Mckeon catheter who has had changes in urine color recently and more confusion than his baseline. He chronically does have some mild memory loss and dementia from his vascular disease. He has had no fever or chills he denies any abdominal pain or flank pain. He also denies chest pain or cough. He does smoke daily. He was placed on methylprednisolone recently most likely for respiratory symptoms but he does not remember for what the treatment was prescribed. He is a DNI and protein palliative care with question of initiating hospice soon. He is very weak and does not ambulate without full assist and does have breakdown of his coccyx and sacral area which is treated with topical agents. This is not appear to be infected at this time. Patient was evaluated in the ED and found to have sepsis syndrome with acute kidney injury and hypokalemia. He was initiated on IV fluids for replenishment and continued to have a soft blood pressure but MAP above 65. He was not requiring pressor agents. He was initiated on treatment for UTI which was MRSA last culture with allergies to cephalosporins. Ciprofloxacin IV with linezolid IV were initiated will be continued. Cultures were obtained with blood cultures and urine cultures. Patient is a DNI as mentioned but continues to want CPR. He is a fair historian with his baseline confusion. Review of Systems Narrative: 13 point review of systems otherwise unrevealing or stable. PFSH All Active Problems Sacral decubitus ulcer (Chronic) Urinary tract infection (Acute) Sepsis (Acute) Advanced care planning/counseling discussion (Acute) Palliative care encounter (Acute) Seizure disorder as sequela of cerebrovascular accident (Chronic) s/p CVA/hemorrhage, h/o breakthrough in setting of UTI/fever Abnormal weight loss (Acute) Recurrent UTI (Acute) History of follicular lymphoma (Chronic) Prostate cancer (Chronic) S/P Radiation therapy. Currently under surveillance with very low but detectible PSA (05/2024). Dr. Evans. 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 Major depressive disorder, single episode Leakage of other urinary catheter, initial encounter Family history of breast cancer Essential (primary) hypertension Delirium due to known physiological condition Contact with and (suspected) exposure to other hazardous substances Bradycardia, unspecified Closed fracture of left proximal humerus (01/10/23) CVA (cerebral vascular accident) Lymphoma Hypertension Surgical History History of craniotomy for brain bleed Family History Father Personal history of malignant neoplasm prostate cancer Social History Smoking/Tobacco Use Status: Current every day Tobacco Type: cigarettes Smoking packs per day: 1 Smoking cigarettes per day: 20.0 Smoking risk assessment performed?: Yes Alcohol Intake: former Drug use: Never Substance use type: does not use Housing: house Current gender identity: male Do you feel safe at home: Yes Do you feel safe in your relationship?: Yes Meds Allergies and Home Medications Allergies Allergy/AdvReac Type Severity Reaction Status Date / Time cefazolin Allergy Severe Anaphylaxis Verified 07/07/24 22:13 iohexol (From Omnipaque) Allergy Unknown Unknown Verified 07/07/24 22:13 Iodinated Contrast Media Allergy Skin Rash Verified 07/07/24 22:13 Rocuronium Allergy Severe Anaphylaxis Uncoded 07/07/24 22:13 Home Medications ?Medication ?Instructions ?Recorded ?Confirmed ?Type atorvastatin 80 mg tablet 80 mg PO QPM 01/05/21 07/07/24 History cholecalciferol (vitamin D3) 25 25 mcg PO .qod 01/05/21 07/07/24 History mcg (1,000 unit) tablet (Vitamin D3) lacosamide 100 mg tablet 200 mg PO BID 01/05/21 07/07/24 History tamsulosin 0.4 mg capsule 0.4 mg PO BID 01/05/21 07/07/24 History lactobacillus combo #5 150 mg (2 1 mg PO DAILY 12/12/21 07/07/24 History billion cell) tablet,delayed release melatonin 3 mg tablet 3 mg PO HS 12/12/21 07/07/24 History acetaminophen 500 mg tablet 1,000 mg (2 x 500 mg) PO Q8H PRN 03/03/24 07/07/24 Rx PRN #0 tabs docusate sodium 100 mg capsule 100 mg PO BID #0 caps 03/03/24 07/07/24 Rx (Colace) ferrous sulfate 325 mg (65 mg 325 mg PO DAILY #30 tabs 03/03/24 07/07/24 Rx iron) tablet (Feosol) magnesium gluconate 27 mg 500 mg (18.5185 x 27 mg magnesium 03/03/24 07/07/24 Rx magnesium (500 mg) tablet (500 mg)) PO DAILY #0 tabs polyethylene glycol 3350 17 gram 17 g PO BID #0 ea 03/03/24 07/07/24 Rx oral powder packet potassium chloride 10 mEq 10 meq PO DAILY #0 tabs 03/03/24 07/07/24 Rx tablet,extended release(part/cryst) psyllium husk (aspartame) 3.4 1 pwd PO BID #0 grams 03/03/24 07/07/24 Rx gram/5.8 gram oral powder (Metamucil Sugar-Free (aspartame)) sennosides 8.6 mg tablet (Senokot) 8.6 mg PO BID #60 tabs 03/03/24 07/07/24 Rx tramadol 50 mg tablet 50 mg PO Q4H PRN PRN #30 tabs 03/03/24 07/07/24 Rx cetirizine 10 mg tablet (Allergy 10 mg PO DAILY PRN 05/30/24 07/07/24 History Relief (cetirizine)) foam bandage 4 X 4 (Mepilex) 05/30/24 06/20/24 History foam bandage 6 X 6 (Mepilex 05/30/24 06/20/24 History Border) foam bandage 8 X 8 05/30/24 06/20/24 History honey 100 % topical paste 1 applic topical DIRECTED 05/30/24 07/07/24 History methylprednisolone 32 mg tablet 32 mg PO BID 05/30/24 07/07/24 History midazolam 5 mg/spray (0.1 mL) 5 mg intranasal ONCE 05/30/24 07/07/24 History nasal spray Exam Narrative Exam Narrative: General: Patient appears older than stated age, thin almost cachectic, alert and oriented at least to person and place and in no acute distress. He has slow dysarthric speech. HEENT: Normocephalic, eyes with pupils equal and reactive to light symmetrically, extraocular move intact and sclera anicteric. Oropharynx with dry mucosa and poor dentition with missing teeth and carious teeth. Neck: Supple without JVD. Back: Kyphotic without CVA tenderness. Sacral area is bandaged with dry bandage and not examined with known stage II-III decubitus sacral ulcer cared for [facility]. Lungs: Bronchovesicular breath sound diffusely with no focalizing rales or rhonchi. No increased expiratory phase or expiratory wheeze. Fair aeration. Heart: Distant heart sounds with regular rate and rhythm and no appreciable murmur or gallop. Abdomen: Scaphoid and nontender to palpation without palpable hepatosplenomegaly. Soft palpation. No guarding or rebound. Bowel sounds positive all quadrants. Genitalia/rectal: Exam deferred. He does have Mckeon catheter with opaque almost milky urine draining. Skin: Pale, warm and dry with increased tenting and decreased turgor, rough texture over sun exposed areas with actinic changes. No bruising. Extremities: Without clubbing, cyanosis or grossly pitting edema. Muscle wasting diffusely. Fair capillary refill. Neuro: Cranial nerves II through XII grossly intact, dysarthric speech and patient hard of hearing. No focalizing motor deficits except for slight 's including face. Tone normal. No tremors. DTRs physiologic and symmetrical with no Babinski's. Psych: Normal affect and mood with slowed speech. No abnormal thought processes. Remote and recent memory appear to be grossly intact with some short-term memory deficits. Results Imaging Imaging Studies: Exam: XR Chest Exam date and time: 07/07/2024 10:42 PM Age: 78 years old Clinical indication: Other: Altered mental status TECHNIQUE: Imaging protocol: Radiologic exam of the chest. Views: 1 view. COMPARISON: CR XR PORTABLE CHEST AP 05/24/2024 7:57 PM FINDINGS: Lungs: Severe hyperinflation consistent with underlying emphysema/COPD. No acute infiltrates or airspace consolidation. No acute edema. Pleural spaces: No pleural effusion. No pneumothorax. Heart/Mediastinum: Normal heart size. No mediastinal widening. Bones/joints: Degenerative thoracic spine. IMPRESSION: 1. Hyperinflation suggesting underlying emphysema/COPD. 2. No acute lung infiltrates or edema. Date: 02/25/24 EXAM: Comprehensive 2D, Doppler, and color-flow Echocardiogram Patient Location: In-Patient Room/Bed: [id number] [employer] Income Portfolio Manager: Apryl Rae RDCS (AE) Indications: Hypotension, Ascending aortic aneurysm, pre operative exam Other Information Study Quality: Adequate. Technically limited study due to body habitus, inability to position patient exam done supine bedside, unable to compress patient had pain. Conclusion Normal left ventricular wall thickness and chamber size. Ejection fraction is 60%. Wall motion is normal Normal right ventricular size and function Both atria are normal in size Aortic valve is calcified. There is mild aortic stenosis with a mean gradient of 10 mmHg. There is trace aortic regurgitation Mild mitral annular calcification. Mild mitral regurgitation Estimated right ventricular systolic pressure is 38 mmHg Labs 07/07/24 22:25 07/07/24 22:25 Labs: Laboratory Results - last 24 hr 07/07/24 07/07/24 07/07/24 22:18 22:25 23:02 WBC 13.85 H RBC 4.29 L Hgb 12.8 L Hct 39.1 L MCV 91 MCH 29.8 MCHC 32.7 RDW 16.3 H Plt Count 142 MPV 9.2 Immature Gran % 0.5 Neutrophils % 88.5 Lymphocytes % 4.8 Monocytes % 5.9 Eosinophils % 0.1 Basophils % 0.2 Nucleated RBC % 0.0 Absolute Neutrophils 12.26 H Absolute Lymphocytes 0.66 L Absolute Monocytes 0.82 H Absolute Eosinophils 0.01 Absolute Basophils 0.03 VBG Lactate 1.5 H Sodium 140 Potassium 3.3 L Chloride 99 Carbon Dioxide 31.7 Anion Gap 9.3 BUN 29 H Creatinine 1.5 H Est GFR (CKD-EPI 2020) 47.36 Glucose 138 H Calcium 9.8 Total Bilirubin 1.07 H AST 18 ALT 18 Alkaline Phosphatase 150 H Total Protein 7.1 Albumin 2.7 L Urine Color Cancelled Yellow Urine Clarity Cancelled Clear Urine pH Cancelled 6.5 Ur Specific [place] Cancelled 1.020 Urine Protein Cancelled 100 H Urine Ketones Cancelled Negative Urine Blood Cancelled Moderate H Urine Nitrite Cancelled Positive H Urine Bilirubin Cancelled Negative Urine Urobilinogen Cancelled 0.2 Ur Leukocyte Esterase Cancelled Large H Urine RBC Not Applicable 10-20 H Urine WBC >50 H >50 H Ur Epithelial Cells Not Applicable Rare Urine Crystals Not Applicable Negative Urine Bacteria Not Applicable Few Urine Casts Negative Urine Mucus Not Applicable Negative Ur Culture Indicated? C&S Done As Ordered No Urine Glucose Cancelled Negative Last Vital Signs Temp 36.3 C L 07/07/24 22:11 Pulse 91 H 07/07/24 22:11 Resp 16 07/07/24 22:11 BP 110/68 07/07/24 22:11 Pulse Ox 92 07/07/24 22:11 Time Spent Time spent with Patient: >75 minutes Time was spent: preparing to see the patient(eg.review tests), obtaining and/or reviewing separately otained hiistory, ordering medications,tests, procedures, referring, communicating with other health care advocate, indepentently interpreting results, counseling the patient and care coordination
[2024-07-07] MEDS: LINEZOLID 600 MG/300 ML BAG 300 MG IVPB (23:29)
[2024-07-07] MEDS: Normal Saline 1,000 ML 1000 ML IV (23:30)
[2024-07-07] MEDS: Potassium Chloride Liquid 20 MEQ PKT PO (23:44)
[2024-07-08] VITALS (102 sets, daily range): BP systolic 87–141; BP diastolic 47–127; PULSE 42–85; RESP 2–34; TEMP 36.4–36.8; O2SAT 84–100
[2024-07-08 00:01] LABS: Magnesium 1.9 mg/dL (1.8-2.4)
--- OUTSIDE RECORDS SUMMARY | 2024-07-08 01:23 | XMS_ITS | Continuity of Care Document ---
Author Name [facility] Organization [facility] Care Team Providers Care Decorating Equipment Setter Name Role Phone [facility] Unavailable Unavailable Problems Combined list of problems from Department of Defense and Veterans Affairs facilities. It does not include entries that were removed or entered in error. Problem Status Onset Date Problem Type Date of Resolution Comments Source AAA - Abdominal aortic aneurysm Active Condition Nov 18, 2017 Entered By: KYLAH CHAVEZ AEJeremy Comment: 3.9cm June 2017 [facility] Alcohol dependence Active Condition [facility] Brady[facility] Active Condition [facility] Delirium [facility] Depression Active Condition Jul 02 Entered By: NILAY NAQVI Comment: in context of admission to [facility] Jun 2021 [facility] Exposure to potentially hazardous substance Active [...] Injury due to chemical exposure (SNOMED CT [id number]) Active [facility] Non-traumatic subdural haemorrhage Active [facility] Thoracic aortic aneurysm without rupture Active Condition Nov 18, 2017 Entered By: KYLAH CHAVEZ AEJeremy Comment: 4.0cm June 2017 [facility] Tobacco dependence Active Condition [facility] Diagnosis: ICD-10-CM Z02.9 Encounter for administrative examinations, unspecified Active Diagnosis [facility] Diagnosis: ICD-10-CM I71.40 Abdominal aortic aneurysm, without rupture, unspecified Active Diagnosis [facility] Diagnosis: ICD-10-CM R33.8 Other retention of urine Active Diagnosis [facility] Diagnosis: ICD-10-CM L89.43 Pressr ulcer of contig site of back, buttock and hip, stg 3 Active [facility] Diagnosis: ICD-10-CM R33.9 Retention of urine, unspecified Active Diagnosis [facility] Diagnosis: ICD-10-CM L89.893 Pressure ulcer of other site, stage 3 [facility] Diagnosis: ICD-10-CM Z71.3 Dietary counseling and surveillance Active Diagnosis [facility] Diagnosis: ICD-10-CM N20.1 Calculus of ureter Active Diagnosis [facility] Diagnosis: ICD-10-CM L89.894 Pressure ulcer of other site, stage 4 Active Diagnosis [facility] Diagnosis: ICD-10-CM L89.890 Pressure ulcer of other site, unstageable [facility] Diagnosis: ICD-10-CM F01.A3 Vascular dementia, mild, with [...] [BMI] 19.9 or less, adult Active Diagnosis [facility] Diagnosis: ICD-10-CM Z23 Encounter for immunization Active Diagnosis [facility] Diagnosis: ICD-10-CM 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 Active Diagnosis [facility] Diagnosis: ICD-10-CM R68.89 Other general symptoms and signs Active Diagnosis [facility] Diagnosis: ICD-10-CM Z51.89 Encounter for other specified aftercare Active Diagnosis [facility] Diagnosis: ICD-10-CM F32.9 Major depressive disorder, single episode, unspecified Active Diagnosis [facility] Diagnosis: ICD-10-CM Z87.440 Personal history of urinary (tract) infections Active Diagnosis [facility] Diagnosis: ICD-10-CM Z98.890 Other specified postprocedural [...] TO LOWER CHOLESTE ROL ORAL ACTIVE 07/08/2025 [id number] KATHARINE VELASQUEZ ANN 2023 90 [facility] ATORVASTATI N CA 40MG TAB TAKE TWO TABLET(S ) BY MOUTH EVERY EVENING TO LOWER CHOLESTE ROL ORAL DISCONT INUED (EDIT) 04/07/2025 [id number] KATHARINE VELASQUEZ ANN 2023 180 [facility] ATORVASTATI N CA 40MG TAB TAKE TWO TABLET(S ) BY MOUTH EVERY EVENING TO LOWER CHOLESTE ROL ORAL DISCONT INUED 05/10/2024 [id number] BROTHERSLAUREN JR [address] [facility] CETIR[facility] HCL 10MG TAB TAKE ONE TABLET BY MOUTH ONCE FOR IMAGING STUDY TAKE 1 HOUR PRIOR TO IMAGING STUDY. ORAL 06/04/2024 [id number] VIMAL FAM 2023 1 [facility] DIPHENHYDRA MINE HCL 50MG CAP TAKE ONE CAPSULE BY MOUTH ONCE - TAKE ONE HOUR PRIOR TO CT ORAL DISCONT INUED BY PROVIDE R 12/04/2023 [id number] VIMAL FAM 2023 1 [facility] LACOSAMIDE 50MG TAB TAKE FOUR TABLETS BY MOUTH TWICE A DAY . MAY TAKE 2 EXTRA TABLETS (100MG) IF ANY UTI, FEVER OR ANY SURGICAL PROCEDUR E. ORAL ACTIVE 12/16/2024 [id number] 4 KARINA RODGERS 2023 240 [facility] LACOSAMIDE 50MG TAB TAKE FOUR TABLETS BY MOUTH TWICE A DAY . MAY TAKE 2 EXTRA TABLETS (100MG) IF ANY UTI, FEVER OR ANY SURGICAL PROCEDUR E. ORAL DISCONT INUED 07/26/2024 [id number] JOSE ANGELA R,CRISTAL 2023 240 [facility] LACOSAMIDE 50MG TAB TAKE FOUR TABLETS BY MOUTH TWICE A DAY - MAY TAKE 2 EXTRA TABLETS (100MG) IF ANY UTI, FEVER OR ANY SURGICAL PROCEDUR E. *NOTE NEW STRENGTH /DIRECTI ONS* ORAL DISCONT INUED 07/31/2023 [id number] KATHARINE VELASQUEZ [address] [facility] LACOSAMIDE 50MG TAB TAKE FOUR TABLETS BY MOUTH TWICE A DAY - MAY TAKE 2 EXTRA TABLETS (100MG) IF ANY UTI, FEVER OR ANY SURGICAL PROCEDUR E. *NOTE NEW STRENGTH /DIRECTI ONS* ORAL DISCONT INUED 06/21/2023 [id number] ROMEO R,CRISTAL 2022 240 [facility] LACOSAMIDE 50MG TAB TAKE FOUR TABLETS BY MOUTH TWICE A DAY MAY TAKE AN EXTRA TWO TABLETS IF ANY UTI,FEVE R, OR ANY SURGICAL PROCEDUR E ORAL 01/15/2024 [id number] Husam VENTURA ERGIO A 2022 240 [facility] LACTOBACILL US ACIDOPHILUS CAP TAKE ONE CAPSULE BY MOUTH ONCE DAILY FOR DIGESTIV E CARE ORAL ACTIVE 04/07/2025 [id number] 4 KATHARINE VELASQUEZ [address] [facility] LACTOBACILL US COMBO TAB TAKE ONE TABLET BY MOUTH ONCE DAILY FOR GI ORAL DISCONT INUED 05/26/2024 [id number] LAUREN BILLY JR [address] [facility] MELATONIN 3MG CAP/TAB TAKE ONE CAP/TAB BY MOUTH AT BEDTIME NEEDED FOR SLEEP ORAL DISCONT INUED BY PROVIDE R 04/07/2025 [id number] KATHARINE VELASQUEZ [address] [facility] MELATONIN 3MG CAP/TAB TAKE ONE CAP/TAB BY MOUTH AT BEDTIME NEEDED FOR SLEEP ORAL DISCONT INUED 05/10/2024 [id number] LAUREN BILLY JR 2022 120 [facility] METHYLPREDN ISOLONE 32MG TAB TAKE ONE TABLET BY MOUTH TWICE A DAY - TAKE 1 TABLET 12 HOURS AND 2 HOURS PRIOR TO THE ADMINSTR ATION OF CONTRAST MEDIA (LASSER PROTOCOL ) ORAL DISCONT INUED BY PROVIDE R 12/04/2023 [id number] 4 GEOVANYSHARONVIMAL SHIELDS Jeremy 2023 2 [facility] METHYLPREDN ISOLONE 32MG TAB TAKE ONE TABLET BY MOUTH TWICE A DAY GIVE 12 AND 2 HOURS PRIOR TO THE ADMINIST RATION OF CONTRAST MEDIA (LASSER PROTOCOL ) GIVE 12 AND 2 HOURS PRIOR TO THE ADMINIST RATION OF CONTRAST MEDIA (LASSER PROTOCOL ) ORAL 06/04/2024 [id number] VIMAL FAM 2023 2 [facility] MIDAZOLAM 5MG/SPRAY SOLN,SPRAY, NASAL SPRAY 1 SPRAY INTRANAS ALLY ONCE NEEDED FOR CONVULSI VE SEIZURE, MAY REPEAT ONCE IN 10 MINUTES IF ANOTHER SEIZURE NASAL ACTIVE 07/15/2024 [id number] 4 KARINA RODGERS 2023 2 [facility] MIDAZOLAM 5MG/SPRAY SOLN,SPRAY, NASAL SPRAY 1 SPRAY INTRANAS ALLY ONCE NEEDED FOR CONVULSI VE SEIZURE, MAY REPEAT ONCE IN 10 MINUTES IF ANOTHER SEIZURE NASAL 06/17/2024 [id number] 4 KARINA RODGERS 2023 2 [facility] NITROFURANT OIN MONOHYDRATE /MACROCRYST ALLINE [...] ORAL DISCONT INUED BY PROVIDE R 01/01/2024 [id number] Joellen OSORIO 2023 14 [facility] POTASSIUM CHLORIDE 10MEQ TAB,SA TAKE ONE TABLET BY MOUTH EVERY MORNING WITH BREAKFAS T TO SUPPLEME NT JAMEY M ORAL ACTIVE 04/07/2025 [id number] 4 KATHARINE VELASQUEZ [address] [facility] POTASSIUM CHLORIDE 10MEQ TAB,SA TAKE ONE TABLET BY MOUTH EVERY MORNING WITH BREAKFAS T TO SUPPLEME NT JAMEY Muñiz ORAL DISCONT INUED 05/10/2024 [id number] LAUREN BILLY JR [address] [facility] TAMSULOSIN HCL 0.4MG CAP TAKE TWO CAPSULES BY MOUTH ONCE DAILY 30 MINUTES AFTER THE SAME MEALTIME EACH DAY FOR PROSTATE /URINARY SYMPTOMS . ORAL ACTIVE 05/04/2025 [id number]ellen OSORIO [address] [facility] TAMSULOSIN HCL 0.4MG CAP TAKE ONE CAPSULE BY MOUTH TWICE A DAY 30 MINUTES AFTER THE SAME MEALTIME EACH DAY FOR PROSTATE /URINARY SYMPTOMS . ORAL DISCONT INUED (EDIT) 04/07/2025 [id number] 4 KATHARINE VELASQUEZ [address] [facility] TAMSULOSIN HCL 0.4MG CAP TAKE ONE CAPSULE BY MOUTH TWICE A DAY 30 MINUTES AFTER THE SAME MEALTIME EACH DAY FOR PROSTATE /URINARY SYMPTOMS . ORAL DISCONT INUED 05/10/2024 [id number] LAUREN BILLY JR [address] [facility] VASHE WOUND THERAPY SOLN,TOP APPLY APPLICAT ION TOPICALL Y NEEDED PRESSURE INJURIES TOPICA L ACTIVE 04/12/2025 [id number] 4 DANIELLE QUINTERO 2023 [address] [facility] adverse reactions to drug (finding) active 1 [facility] ROCURONIUM BROMIDE Propensity to adverse reactions to drug (finding) Anaphylaxis , Low blood pressure SEVERE active 4 [facility] Immunizations Combined list of available immunizations from the Department of Defense and Veterans Affairs facilities. Immunization Series Date Given Administered By Site Reaction Lot Number CVX Code Drug Trade Manager Status Comments Source INFLUENZA, HIGH-DOSE, QUADRIVALENT 2022 [employer] RIGHT DELTO ID [id number] 197 complet ed [facility] INFLUENZA VACCINE, QUADRIVALENT, ADJUVANTED 2021 205 complet ed [facility] COVID-19 (MODERNA), MRNA, LNP-S, PF, 100 MCG/0.5ML DOSE OR 50 MCG/0.25ML DOSE 3 2021 207 complet ed MOD; [id number] ; 2 [facility] COVID-19 ([employer]), VECTOR-NR, RS-AD26, PF, 0.5 ML 2 2020 212 complet ed JSN; [id number]; 2 [facility] INFLUENZA VACCINE, QUADRIVALENT, ADJUVANTED 2020 205 complet ed [facility] COVID-19 ([employer]), VECTOR-NR, RS-AD26, PF, 0.5 ML 1 2020 212 complet ed JSN; [id number]; 1 [facility] INFLUENZA, INJECTABLE, QUADRIVALENT, PRESERVATIVE FREE 2019 150 complet ed [facility] INFLUENZA, INJECTABLE, QUADRIVALENT, PRESERVATIVE FREE 2018 150 complet ed Site: Right Deltoid [facility] ZOSTER RECOMBINANT 2 2018 187 complet ed [facility] INFLUENZA, INJECTABLE, QUADRIVALENT 2018 158 complet ed Site: Right Deltoid [facility] ZOSTER RECOMBINANT 1 2017 187 complet ed [facility] INFLUENZA, SEASONAL, INJECTABLE 2016 141 complet ed Site: Right Deltoid [facility] PNEUMOCOCCAL POLYSACCHARID E PPV23 2015 33 complet ed [facility] INFLUENZA, UNSPECIFIED FORMULATION 2015 88 complet ed Site: Right Deltoid [facility] INFLUENZA, UNSPECIFIED FORMULATION 2014 88 complet ed Site: Left [facility]to[facility] PNEUMOCOCCAL CONJUGATE PCV [address] [facility] INFLUENZA, UNSPECIFIED FORMULATION 2013 88 complet ed [facility] , [place] [facility] TD(ADULT) UNSPECIFIED FORMULATION 2013 139 complet ed [facility] TDAP 2013 115 complet ed non-VA facility, date appx [facility] ZOSTER LIVE 2013 121 complet ed [facility] Results Combined list of recent chemistry, [...] Jun 07, 2024 04:57 PM Reporting Lab: [facility] [address] [facility] [address] Performing [facility]: [facility] [address] [facility] [address] [facility] URINALYS IS W/REFLEX TO CULTURE SPECIFIC GRAVITY OF URINE BY REFRACTOME TRY 1.011 1.003 - 1.030 06/07 Specimen Type: URINE No comment entered. Ordering Provider: CAROLYN CERNA Report Released Date/Time: Jun 07, 2024 04:57 PM Reporting Lab: [facility] [address] [facility] [address] Performing Lab: [facility] [address] [facility] [address] [facility] URINALYS IS W/REFLEX TO CULTURE UROBILINOG EN [MASS/VOLU ME] IN URINE <2.0mg/d L <2.0 - 2.0 06/07 Specimen Type: URINE No comment entered. Ordering Provider: CAROLYN CERNA Report Released Date/Time: Jun 07, 2024 04:57 PM Reporting Lab: [facility] [address] [place] [facility] [place] [address] Performing Lab: [facility] [address] [place] [facility] [place] [address] [facility] URINALYS IS W/REFLEX TO CULTURE BILIRUBIN. TOTAL [PRESENCE] IN URINE BY TEST STRIP NEG 06/07 Specimen Type: URINE No comment entered. Ordering Provider: CAROLYN CERNA Report Released Date/Time: Jun 07, 2024 04:57 PM Reporting Lab: [facility] [address] [place] [facility] [place] [address] Performing Lab: [facility] [address] [place] [facility] [place] [address] [facility] URINALYS IS W/REFLEX TO CULTURE KETONES [PRESENCE] IN URINE NEGmg/dL 06/07 Specimen Type: URINE No comment entered. Ordering Provider: CAROLYN CERNA Report Released Date/Time: Jun 07, 2024 04:57 PM Reporting Lab: [facility] [address] [place] [facility] [place] [address] Performing Lab: [facility] [address] [place] [facility] [place] [address] [facility] URINALYS IS W/REFLEX TO CULTURE GLUCOSE [MASS/VOLU ME] IN URINE BY TEST STRIP NEGmg/dL 06/07 Specimen Type: URINE No comment entered. Ordering Provider: CAROLYN CERNA Report Released Date/Time: Jun 07, 2024 04:57 PM Reporting Lab: [facility] [address] [place] [facility] [place] [address] Performing Lab: [facility] [address] [place] [facility] [place] [address] [facility] URINALYS IS W/REFLEX TO CULTURE PROTEIN [MASS/VOLU ME] IN URINE BY TEST STRIP TRACEmg/ dL 06/07 Specimen Type: URINE No comment entered. Ordering Provider: CAROLYN CERNA Report Released Date/Time: Jun 07, 2024 04:57 PM Reporting Lab: [facility] [address] [facility] [address] Performing Lab: [facility] [address] [place] [facility] [place] [address] [facility] URINALYS IS W/REFLEX TO CULTURE PH OF URINE BY TEST STRIP 5.5 5 - 8 06/07 Specimen Type: URINE No comment entered. Ordering Provider: CAROLYN CERNA Report Released Date/Time: Jun 07, 2024 04:57 PM Reporting Lab: [facility] [address] [place] [facility] [place] [address] Performing Lab: [facility] [address] [facility] [address] [facility] URINALYS IS W/REFLEX TO CULTURE LEUKOCYTES [#/AREA] IN URINE SEDIMENT BY MICROSCOPY HIGH POWER FIELD 47 /[HPF] 0 - 5 06/07 H Specimen Type: URINE No comment entered. Ordering Provider: CAROLYN CERNA Report Released Date/Time: Jun 07, 2024 04:57 PM Reporting Lab: [facility] [address] [facility] [address] Performing Lab: [facility] [address] [place] [facility] [place] [address] [facility] URINALYS IS W/REFLEX TO CULTURE BACTERIA [PRESENCE] IN URINE SEDIMENT BY LIGHT MICROSCOPY MANY 06/07 Specimen Type: URINE No comment entered. Ordering Provider: CAROLYN CERNA Report Released Date/Time: Jun 07, 2024 04:57 PM Reporting Lab: [facility] [address] [facility] [address] Performing Lab: [facility] [address] [facility] [address] [facility] URINALYS IS W/REFLEX TO CULTURE CALCIUM OXALATE CRYSTALS [PRESENCE] IN URINE SEDIMENT BY LIGHT MICROSCOPY RARE 06/07 Specimen Type: URINE No comment entered. Ordering Provider: CAROLYN CERNA Report Released Date/Time: Jun 07, 2024 04:57 PM Reporting Lab: [facility] [address] [facility] [address] Performing Lab: [facility] [address] [facility] [address] [facility] URINALYS IS W/REFLEX TO CULTURE ERYTHROCYT ES [#/AREA] IN URINE SEDIMENT BY MICROSCOPY HIGH POWER FIELD 14 /[HPF] 0 - 2 06/07 H Specimen Type: URINE No comment entered. Ordering Provider: CAROLYN CERNA Report Released Date/Time: Jun 07, 2024 04:57 PM Reporting Lab: [facility] [address] [facility] [address] Performing Lab: [facility] [address] [facility] [address] [facility] URINALYS IS W/REFLEX TO CULTURE APPEARANCE OF URINE CLEAR 06/07 Specimen Type: URINE No comment entered. Ordering Provider: CAROLYN CERNA Report Released Date/Time: Jun 07, 2024 04:57 PM Reporting Lab: [facility] [address] [facility] [address] Performing Lab: [facility] [address] [facility] [address] [facility] URINALYS IS W/REFLEX TO CULTURE HEMOGLOBIN [PRESENCE] IN URINE MOD 06/07 Specimen Type: URINE No comment entered. Ordering Provider: CAROLYN CERNA Report Released Date/Time: Jun 07, 2024 04:57 PM Reporting Lab: [facility] [address] [facility] [address] Performing Lab: [facility] [address] [facility] [address] [facility] URINALYS IS W/REFLEX TO CULTURE NITRITE [PRESENCE] IN URINE BY TEST STRIP NEG 06/07 Specimen Type: URINE No comment entered. Ordering Provider: CAROLYN CERNA Report Released Date/Time: Jun 07, 2024 04:57 PM Reporting Lab: [facility] [address] [facility] [address] Performing Lab: [facility] [address] [facility] [address] [facility] URINALYS IS W/REFLEX TO CULTURE LEUKOCYTES [PRESENCE] IN URINE LG 06/07 Specimen Type: URINE No comment entered. Ordering Provider: CAROLYN CERNA Report Released Date/Time: Jun 07, 2024 04:57 PM Reporting Lab: [facility] [address] [facility] [address] Performing Lab: [facility] [address] [facility] [address] [facility] URINALYS IS W/REFLEX TO CULTURE MICROSCOPI C-iQ Complete d 06/07 Specimen Type: URINE No comment entered. Ordering Provider: CAROLYN CERNA Report Released Date/Time: Jun 07, 2024 04:57 PM Reporting Lab: [facility] [address] [facility] [address] Performing Lab: [facility] [address] [facility] [address] [facility] CREATINI NE WITH eGFR PANEL CREATININE [MASS/VOLU ME] IN SERUM OR PLASMA 0.91 mg/dL 0.50 - 1.50 05/04 Specimen Type: PLASMA Comment: , Tests performed on Tang Song SN:[id number] (405) Ordering Provider: Kirsten FAM Report Released Date/Time: Nov 15, 2023 11:30 AM Reporting Lab: [facility] [address] [facility] [address] Performing Lab: [facility] [address] [facility] [address] [facility] CREATINI NE WITH eGFR PANEL GLOMERULAR FILTRATION RATE/1.73 SQ M.PREDICTE D [VOLUME RATE/AREA] IN SERUM, PLASMA OR BLOOD BY CREATININE -BASED FORMULA (CKD-EPI 2020) 86 05/04 Specimen Type: PLASMA Comment: , Tests performed on Tang Song SN:[id number] (405) Ordering Provider: Kirsten FAM Report Released Date/Time: Nov 15, 2023 11:30 AM Reporting Lab: [facility] [address] [facility] [address] Performing Lab: [facility] [address] [facility] [address] [facility] UREA NITROGEN UREA NITROGEN [MASS/VOLU ME] IN SERUM OR PLASMA 10 mg/dL 7 - 05/04 Specimen Type: PLASMA Comment: , Tests performed on Tang Song SN:[id number] (393) Ordering Provider: Kirsten FAM Report Released Date/Time: Nov 15, 2023 11:30 AM Reporting Lab: [facility] [address] [facility] [address] Performing Lab: [facility] [address] [facility] [address] [facility] URINALYS IS W/REFLEX TO CULTURE COLOR OF URINE Light-Or keshav 11/28 Specimen Type: URINE No comment entered. Ordering Provider: ÁNGELA OSORIO [facility] Report Released Date/Time: Nov 24, 2023 05:48 PM Reporting Lab: [facility] [address] [facility] [address] Performing Lab: [facility] [address] [facility] [address] [facility] URINALYS IS W/REFLEX TO CULTURE SPECIFIC GRAVITY OF URINE BY REFRACTOME TRY 1.013 1.003 - 1.030 11/28 Specimen Type: URINE No comment entered. Ordering Provider: ÁNGELA OSORIO [facility] Report Released Date/Time: Nov 24, 2023 05:48 PM Reporting Lab: [facility] [address] [facility] [address] Performing Lab: [facility] [address] [facility] [address] [facility] URINALYS IS W/REFLEX TO CULTURE UROBILINOG EN [MASS/VOLU ME] IN URINE <2.0mg/d L <2.0 - 2.0 11/28 Specimen Type: URINE No comment entered. Ordering Provider: ÁNGELA OSORIO [facility] Report Released Date/Time: Nov 24, 2023 05:48 PM Reporting Lab: [facility] [address] [facility] [address] Performing Lab: [facility] [address] [facility] [address] [facility] URINALYS IS W/REFLEX TO CULTURE BILIRUBIN. TOTAL [PRESENCE] IN URINE BY TEST STRIP NEG 11/28 Specimen Type: URINE No comment entered. Ordering Provider: ÁNGELA OSORIO [facility] Report Released Date/Time: Nov 24, 2023 05:48 PM Reporting Lab: [facility] [address] [facility] [address] Performing Lab: [facility] [address] [facility] [address] [facility] URINALYS IS W/REFLEX TO CULTURE KETONES [PRESENCE] IN URINE NEGmg/dL 11/28 Specimen Type: URINE No comment entered. Ordering Provider: ÁNGELA OSORIO [facility] Report Released Date/Time: Nov 24, 2023 05:48 PM Reporting Lab: [facility] [address] [facility] [address] Performing Lab: [facility] [address] [facility] [address] [facility] URINALYS IS W/REFLEX TO CULTURE GLUCOSE [MASS/VOLU ME] IN URINE BY TEST STRIP TRACEmg/ dL 11/28 Specimen Type: URINE No comment entered. Ordering Provider: ÁNGELA OSORIO [facility] Report Released Date/Time: Nov 24, 2023 05:48 PM Reporting Lab: [facility] [address] [facility] [address] Performing Lab: [facility] [address] [facility] [address] [facility] URINALYS IS W/REFLEX TO CULTURE PROTEIN [MASS/VOLU ME] IN URINE BY TEST STRIP 100 mg/dL 11/28 Specimen Type: URINE No comment entered. Ordering Provider: ÁNGELA OSORIO [facility] Report Released Date/Time: Nov 24, 2023 05:48 PM Reporting Lab: [facility] [address] [facility] [address] Performing Lab: [facility] [address] [facility] [address] [facility] URINALYS IS W/REFLEX TO CULTURE PH OF URINE BY TEST STRIP 6.5 5 - 8 11/28 Specimen Type: URINE No comment entered. Ordering Provider: ÁNGELA OSORIO [facility] Report Released Date/Time: Nov 24, 2023 05:48 PM Reporting Lab: [facility] [address] [facility] [address] Performing Lab: [facility] [address] [facility] [address] [facility]IN[facility] IS W/REFLEX TO CULTURE LEUKOCYTES [#/AREA] IN URINE SEDIMENT BY MICROSCOPY HIGH POWER FIELD >182/[HP F] 0 - 5 11/28 H Specimen Type: URINE No comment entered. Ordering Provider: ÁNGELA OSORIO [facility] Report Released Date/Time: Nov 24, 2023 05:48 PM Reporting Lab: [facility] [address] [facility] [address] Performing Lab: [facility] [address] [facility] [address] [facility] URIN[facility] IS W/REFLEX TO CULTURE BACTERIA [PRESENCE] IN URINE SEDIMENT BY LIGHT MICROSCOPY FEW 11/28 Specimen Type: URINE No comment entered. Ordering Provider: ÁNGELA OSORIO [facility] Report Released Date/Time: Nov 24, 2023 05:48 PM Reporting Lab: [facility] [address] [facility] [address] Performing Lab: [facility] [address] [facility] [address] [facility] URINAL[facility] IS W/REFLEX TO CULTURE MUCUS [PRESENCE] IN URINE SEDIMENT BY LIGHT MICROSCOPY FEW 11/28 Specimen Type: URINE No comment entered. Ordering Provider: ÁNGELA OSORIO ISHMAEL Report Released Date/Time: Nov 24, 2023 05:48 PM Reporting Lab: [facility] [address] [facility] [address] Performing Lab: [facility] [address] [facility] [address] [facility] URINALYS IS W/REFLEX TO CULTURE ERYTHROCYT ES [#/AREA] IN URINE SEDIMENT BY MICROSCOPY HIGH POWER FIELD >182/[HP F] 0 - 2 11/28 H Specimen Type: URINE No comment entered. Ordering Provider: ÁNGELA OSORIO [facility] ISHMAEL Report Released Date/Time: Nov 24, 2023 05:48 PM Reporting Lab: [facility] [address] [facility] [address] Performing Lab: [facility] [address] [facility] [address] [facility] URINALYS IS W/REFLEX TO CULTURE APPEARANCE OF URINE CLOUDY 11/28 Specimen Type: URINE No comment entered. Ordering Provider: ÁNGELA OSORIO [facility] QUIÑONES Report Released Date/Time: Nov 24, 2023 05:48 PM Reporting Lab: [facility] [address] [facility] [address] Performing Lab: [facility] [address] [facility] [address] [facility] URINALYS IS W/REFLEX TO CULTURE HEMOGLOBIN [PRESENCE] IN URINE LG 11/28 Specimen Type: URINE No comment entered. Ordering Provider: ÁNGELA OSORIO [facility] QUIÑONES Report Released Date/Time: Nov 24, 2023 05:48 PM Reporting Lab: [facility] [address] [facility] [address] Performing Lab: [facility] [address] [facility] [address] [facility] URINALYS IS W/REFLEX TO CULTURE NITRITE [PRESENCE] IN URINE BY TEST STRIP NEG 11/28 Specimen Type: URINE No comment entered. Ordering Provider: ÁNGELA OSORIO [facility] ISHMAEL Report Released Date/Time: Nov 24, 2023 05:48 PM Reporting Lab: [facility] [address] [facility] [address] Performing Lab: [facility] [address] [facility] [address] [facility] URINALYS IS W/REFLEX TO CULTURE LEUKOCYTES [PRESENCE] IN URINE LG 11/28 Specimen Type: URINE No comment entered. Ordering Provider: ÁNGELA OSORIO [facility] ISHMAEL Report Released Date/Time: Nov 24, 2023 05:48 PM Reporting Lab: [facility] [address] [facility] [address] Performing Lab: [facility] [address] [facility] [address] [facility] URINALYS IS W/REFLEX TO CULTURE MICROSCOPI C-iQ Complete d 11/28 Specimen Type: URINE No comment entered. Ordering Provider: ÁNGELA OSORIO [facility] QUIÑONES Report Released Date/Time: Nov 24, 2023 05:48 PM Reporting Lab: [facility] [address] [facility] [address] Performing Lab: [facility] [address] [facility] [address] [facility] URINALYS IS W/REFLEX TO CULTURE LEUKOCYTE CLUMPS [#/AREA] IN URINE SEDIMENT BY AUTOMATED COUNT MANY 11/28 Specimen Type: URINE No comment entered. Ordering Provider: ÁNGELA OSORIO [facility] ISHMAEL Report Released Date/Time: Nov 24, 2023 05:48 PM Reporting Lab: [facility] [address] [facility] [address] Performing Lab: [facility] [address] [facility] [address] [facility] PSA (ARCHITE CT) PROSTATE SPECIFIC AG [MASS/VOLU ME] IN SERUM OR PLASMA 0.13 ng/mL 0 - 4.0 06/16 Specimen Type: SERUM Comment: Tests performed on Mindframe (405) SN:[id number] Ordering Provider: KEM HEIN Report Released Date/Time: Dec 09, 2022 08:40 AM Reporting Lab: [facility] [address] [facility] [address] Performing Lab: [facility] [address] [facility] [address] [facility] URINALYS IS W/REFLEX TO CULTURE COLOR OF URINE Dark-Bro wn 04/22 Specimen Type: URINE Comment: ~For Test: URINALYSIS W/REFLEX TO CULTURE ~prior to urologic surgery Ordering Provider: JAEL MORENO Report Released Date/Time: Apr 21, 2023 04:11 PM Reporting Lab: [facility] [address] [facility] [address] Performing Lab: [facility] [address] [facility] [address] [facility] URINALYS IS W/REFLEX TO CULTURE SPECIFIC GRAVITY OF URINE BY REFRACTOME TRY 1.012 1.003 - 1.030 04/22 Specimen Type: URINE Comment: ~For Test: URINALYSIS W/REFLEX TO CULTURE ~prior to urologic surgery Ordering Provider: JAEL MORENO Report Released Date/Time: Apr 21, 2023 04:11 PM Reporting Lab: [facility] [address] [facility] [address] Performing Lab: [facility] [address] [facility] [address] [facility] URINALYS IS W/REFLEX TO CULTURE UROBILINOG EN [MASS/VOLU ME] IN URINE <2.0mg/d L <2.0 - 2.0 04/22 Specimen Type: URINE Comment: ~For Test: URINALYSIS W/REFLEX TO CULTURE ~prior to urologic surgery Ordering Provider: JAEL MORENO Report Released Date/Time: Apr 21, 2023 04:11 PM Reporting Lab: [facility] [address] [facility] [address] Performing Lab: [facility] [address] [facility] [address] [facility] IS W/REFLEX TO CULTURE BILIRUBIN. TOTAL [PRESENCE] IN URINE BY TEST STRIP NEG 04/22 Specimen Type: URINE Comment: ~For Test: URINALYSIS W/REFLEX TO CULTURE ~prior to urologic surgery Ordering Provider: JAEL MORENO Report Released Date/Time: Apr 21, 2023 04:11 PM Reporting Lab: [facility] [address] [facility] [address] Performing Lab: [facility] [address] [facility] [address] [facility] URINALYS IS W/REFLEX TO CULTURE KETONES [PRESENCE] IN URINE NEGmg/dL 04/22 Specimen Type: URINE Comment: ~For Test: URINALYSIS W/REFLEX TO CULTURE ~prior to urologic surgery Ordering Provider: JAEL MORENO Report Released Date/Time: Apr 21, 2023 04:11 PM Reporting Lab: [facility] [address] [facility] [address] Performing Lab: [facility] [address] [facility] [address] [facility] URINALYS IS W/REFLEX TO CULTURE GLUCOSE [MASS/VOLU ME] IN URINE BY TEST STRIP NEGmg/dL 04/22 Specimen Type: URINE Comment: ~For Test: URINALYSIS W/REFLEX TO CULTURE ~prior to urologic surgery Ordering Provider: JAEL MORENO Report Released Date/Time: Apr 21, 2023 04:11 PM Reporting Lab: [facility] [address] [facility] [address] Performing Lab: [facility] [address] [facility] [address] [facility] URINALYS IS W/REFLEX TO CULTURE PROTEIN [MASS/VOLU ME] IN URINE BY TEST STRIP 200 mg/dL 04/22 Specimen Type: URINE Comment: ~For Test: URINALYSIS W/REFLEX TO CULTURE ~prior to urologic surgery Ordering Provider: JAEL MORENO Report Released Date/Time: Apr 21, 2023 04:11 PM Reporting Lab: [facility] [address] [facility] [address] Performing Lab: [facility] [address] [facility] [address] [facility] URINALYS IS W/REFLEX TO CULTURE PH OF URINE BY TEST STRIP 6.0 5 - 8 04/22 Specimen Type: URINE Comment: ~For Test: URINALYSIS W/REFLEX TO CULTURE ~prior to urologic surgery Ordering Provider: JAEL MORENO Report Released Date/Time: Apr 21, 2023 04:11 PM Reporting Lab: [facility] [address] [facility] [address] Performing Lab: [facility] [address] [facility] [address] [facility] URINALYS IS W/REFLEX TO CULTURE LEUKOCYTES [#/AREA] IN URINE SEDIMENT BY MICROSCOPY HIGH POWER FIELD >182/[HP F] 0 - 5 04/22 H Specimen Type: URINE Comment: ~For Test: URINALYSIS W/REFLEX TO CULTURE ~prior to urologic surgery Ordering Provider: JAEL MORENO Report Released Date/Time: Apr 21, 2023 04:11 PM Reporting Lab: [facility] [address] [facility] [address] Performing Lab: [facility] [address] [facility] [address] [facility] URINALYS IS W/REFLEX TO CULTURE BACTERIA [PRESENCE] IN URINE SEDIMENT BY LIGHT MICROSCOPY FEW 08/31 /2023 Specimen Type: URINE Comment: ~For Test: URINALYSIS W/REFLEX TO CULTURE ~prior to urologic surgery Ordering Provider: JAEL MORENO Report Released Date/Time: Apr 21, 2023 04:11 PM Reporting Lab: [facility] [address] [place] [facility] [place] [place] [address] Performing Lab: [facility] [address] [place] [facility] [place] [address] [facility] URINALYS IS W/REFLEX TO CULTURE MUCUS [PRESENCE] IN URINE SEDIMENT BY LIGHT MICROSCOPY MANY 04/22 Specimen Type: URINE Comment: ~For Test: URINALYSIS W/REFLEX TO CULTURE ~prior to urologic surgery Ordering Provider: JAEL MORENO Report Released Date/Time: Apr 21, 2023 04:11 PM Reporting Lab: [facility] [address] [place] [facility] [place] [address] Performing Lab: [facility] [address] [place] [facility] [place] [address] [facility] URINALYS IS W/REFLEX TO CULTURE YEAST [PRESENCE] IN URINE SEDIMENT BY LIGHT MICROSCOPY MANY 04/22 Specimen Type: URINE Comment: ~For Test: URINALYSIS W/REFLEX TO CULTURE ~prior to urologic surgery Ordering Provider: JAEL MORENO Report Released Date/Time: Apr 21, 2023 04:11 PM Reporting Lab: [facility] [address] [place] [facility] [place] [address] Performing Lab: [facility] [address] [place] [facility] [place] [address] [facility] URINALYS IS W/REFLEX TO CULTURE ERYTHROCYT ES [#/AREA] IN URINE SEDIMENT BY MICROSCOPY HIGH POWER FIELD >182/[HP F] 0 - 3 04/22 H Specimen Type: URINE Comment: ~For Test: URINALYSIS W/REFLEX TO CULTURE ~prior to urologic surgery Ordering Provider: JAEL MORENO Report Released Date/Time: Apr 21, 2023 04:11 PM Reporting Lab: [facility] [address] [place] [facility] [place] [address] Performing Lab: [facility] [address] [place] [facility] [place] [address] [facility] URINALYS IS W/REFLEX TO CULTURE APPEARANCE OF URINE TURBID 04/22 Specimen Type: URINE Comment: ~For Test: URINALYSIS W/REFLEX TO CULTURE ~prior to urologic surgery Ordering Provider: JAEL MORENO Report Released Date/Time: Apr 21, 2023 04:11 PM Reporting Lab: [facility] [address] [facility] [address] Performing Lab: [facility] [address] [facility] [address] [facility] URINALYS IS W/REFLEX TO CULTURE HEMOGLOBIN [PRESENCE] IN URINE LG 04/22 Specimen Type: URINE Comment: ~For Test: URINALYSIS W/REFLEX TO CULTURE ~prior to urologic surgery Ordering Provider: JAEL MORENO Report Released Date/Time: Apr 21, 2023 04:11 PM Reporting Lab: [facility] [address] [facility] [address] Performing Lab: [facility] [address] [facility] [address] [facility] URINALYS IS W/REFLEX TO CULTURE NITRITE [PRESENCE] IN URINE BY TEST STRIP NEG 04/22 Specimen Type: URINE Comment: ~For Test: URINALYSIS W/REFLEX TO CULTURE ~prior to urologic surgery Ordering Provider: JAEL MORENO Report Released Date/Time: Apr 21, 2023 04:11 PM Reporting Lab: [facility] [address] [facility] [address] Performing Lab: [facility] [address] [facility] [address] [facility] URINALYS IS W/REFLEX TO CULTURE LEUKOCYTES [PRESENCE] IN URINE LG 04/22 Specimen Type: URINE Comment: ~For Test: URINALYSIS W/REFLEX TO CULTURE ~prior to urologic surgery Ordering Provider: AJEL MORENO Report Released Date/Time: Apr 21, 2023 04:11 PM Reporting Lab: [facility] [address] [facility] [address] Performing Lab: [facility] [address] [facility] [address] [facility] URINALYS IS W/REFLEX TO CULTURE MICROSCOPI C-iQ Complete d 04/22 Specimen Type: URINE Comment: ~For Test: URINALYSIS W/REFLEX TO CULTURE ~prior to urologic surgery Ordering Provider: JAEL MORENO Report Released Date/Time: Apr 21, 2023 04:11 PM Reporting Lab: [facility] [address] [facility] [address] Performing Lab: [facility] [address] [facility] [address] [facility] URINALYS IS W/REFLEX TO CULTURE LEUKOCYTE CLUMPS [#/AREA] IN URINE SEDIMENT BY AUTOMATED COUNT MANY 04/22 Specimen Type: URINE Comment: ~For Test: URINALYSIS W/REFLEX TO CULTURE ~prior to urologic surgery Ordering Provider: JAEL MORENO Report Released Date/Time: Apr 21, 2023 04:11 PM Reporting Lab: [facility] [address] [facility] [address] Performing Lab: [facility] [address] [facility] [address] [facility] URINALYS IS W/REFLEX TO CULTURE COLOR OF URINE Light-Or keshav 02/11 Specimen Type: URINE No comment entered. Ordering Provider: SAAD JOHNSON Report Released Date/Time: Jan 26, 2023 01:36 PM Reporting Lab: [facility] [address] [facility] [address] Performing Lab: [facility] [address] [facility] [address] [facility] URINALYS IS W/REFLEX TO CULTURE SPECIFIC GRAVITY OF URINE BY REFRACTOME TRY 1.011 1.003 - 1.030 02/11 Specimen Type: URINE No comment entered. Ordering Provider: SAAD JOHNSON Report Released Date/Time: Jan 26, 2023 01:36 PM Reporting Lab: [facility] [address] [facility] [address] Performing Lab: [facility] [address] [facility] [address] [facility] URINALYS IS W/REFLEX TO CULTURE UROBILINOG EN [MASS/VOLU ME] IN URINE <2.0mg/d L 02/11 Specimen Type: URINE No comment entered. Ordering Provider: SAAD JOHNSON Report Released Date/Time: Jan 26, 2023 01:36 PM Reporting Lab: [facility] [address] [facility] [address] Performing Lab: [facility] [address] [facility] [address] [facility] URINALYS IS W/REFLEX TO CULTURE BILIRUBIN. TOTAL [PRESENCE] IN URINE BY TEST STRIP NEG 02/11 Specimen Type: URINE No comment entered. Ordering Provider: SAAD JOHNSON Report Released Date/Time: Jan 26, 2023 01:36 PM Reporting Lab: [facility] [address] [facility] [address] Performing Lab: [facility] [address] [facility] [address] [facility] URINALYS IS W/REFLEX TO CULTURE KETONES [PRESENCE] IN URINE NEGmg/dL 02/11 Specimen Type: URINE No comment entered. Ordering Provider: SAAD JOHNSON Report Released Date/Time: Jan 26, 2023 01:36 PM Reporting Lab: [facility] [address] [facility] [address] Performing Lab: [facility] [address] [facility] [address] [facility] URINALYS IS W/REFLEX TO CULTURE GLUCOSE [MASS/VOLU ME] IN URINE BY TEST STRIP TRACEmg/ dL 02/11 Specimen Type: URINE No comment entered. Ordering Provider: SAAD JOHNSON Report Released Date/Time: Jan 26, 2023 01:36 PM Reporting Lab: [facility] [address] [facility] [address] Performing Lab: [facility] [address] [facility] [address] [facility] URINALYS IS W/REFLEX TO CULTURE PROTEIN [MASS/VOLU ME] IN URINE BY TEST STRIP 100 mg/dL 02/11 Specimen Type: URINE No comment entered. Ordering Provider: SAAD JOHNSON Report Released Date/Time: Jan 26, 2023 01:36 PM Reporting Lab: [facility] [address] [facility] [address] Performing Lab: [facility] [address] [facility] [address] [facility] URINALYS IS W/REFLEX TO CULTURE PH OF URINE BY TEST STRIP 6.5 5 - 8 02/11 Specimen Type: URINE No comment entered. Ordering Provider: SAAD JOHNSON Report Released Date/Time: Jan 26, 2023 01:36 PM Reporting Lab: [facility] [address] [facility] [address] Performing Lab: [facility] [address] [facility] [address] [facility] URINALYS IS W/REFLEX TO CULTURE LEUKOCYTES [#/AREA] IN URINE SEDIMENT BY MICROSCOPY HIGH POWER FIELD >182/[HP F] 0 - 5 02/11 H Specimen Type: URINE No comment entered. Ordering Provider: SAAD JOHNSON Report Released Date/Time: Jan 26, 2023 01:36 PM Reporting Lab: [facility] [address] [facility] [address] Performing Lab: [facility] [address] [facility] [address] [facility] URINALYS IS W/REFLEX TO CULTURE YEAST [PRESENCE] IN URINE SEDIMENT BY LIGHT MICROSCOPY FEW 02/11 Specimen Type: URINE No comment entered. Ordering Provider: SAAD JOHNSON Report Released Date/Time: Jan 26, 2023 01:36 PM Reporting Lab: [facility] [address] [facility] [address] Performing Lab: [facility] [address] [facility] [address] [facility] URINALYS IS W/REFLEX TO CULTURE ERYTHROCYT ES [#/AREA] IN URINE SEDIMENT BY MICROSCOPY HIGH POWER FIELD >182/[HP F] 0 - 3 02/11 H Specimen Type: URINE No comment entered. Ordering Provider: SAAD JOHNSON Report Released Date/Time: Jan 26, 2023 01:36 PM Reporting Lab: [facility] [address] [facility] [address] Performing Lab: [facility] [address] [facility] [address] [facility] URINALYS IS W/REFLEX TO CULTURE APPEARANCE OF URINE TURBID 02/11 Specimen Type: URINE No comment entered. Ordering Provider: SAAD JOHNSON Report Released Date/Time: Jan 26, 2023 01:36 PM Reporting Lab: [facility] [address] [facility] [address] Performing Lab: [facility] [address] [facility] [address] [facility] URINALYS IS W/REFLEX TO CULTURE HEMOGLOBIN [PRESENCE] IN URINE LG 02/11 Specimen Type: URINE No comment entered. Ordering Provider: SAAD JOHNSON Report Released Date/Time: Jan 26, 2023 01:36 PM Reporting Lab: [facility] [address] [facility] [address] Performing Lab: [facility] [address] [facility] [address] [facility] URINALYS IS W/REFLEX TO CULTURE NITRITE [PRESENCE] IN URINE BY TEST STRIP NEG 02/11 Specimen Type: URINE No comment entered. Ordering Provider: SAAD JOHNSON Report Released Date/Time: Jan 26, 2023 01:36 PM Reporting Lab: [facility] [address] [facility] [address] Performing Lab: [facility] [address] [facility] [address] [facility] URINALYS IS W/REFLEX TO CULTURE LEUKOCYTES [PRESENCE] IN URINE LG 02/11 Specimen Type: URINE No comment entered. Ordering Provider: SAAD JOHNSON Report Released Date/Time: Jan 26, 2023 01:36 PM Reporting Lab: [facility] [address] [facility] [address] Performing Lab: [facility] [address] [facility] [address] [facility] URINALYS IS W/REFLEX TO CULTURE MICROSCOPI C-iQ Complete d 02/11 Specimen Type: URINE No comment entered. Ordering Provider: SAAD JOHNSON Report Released Date/Time: Jan 26, 2023 01:36 PM Reporting [facility] [address] [facility] [address] Performing Lab: [facility] [address] [facility] [address] [facility] URINALYS IS W/REFLEX TO CULTURE LEUKOCYTE CLUMPS [#/AREA] IN URINE SEDIMENT BY AUTOMATED COUNT MANY 02/11 Specimen Type: URINE No comment entered. Ordering Provider: SAAD JOHNSON Report Released Date/Time: Jan 26, 2023 01:36 PM Reporting Lab: [facility] [address] [facility] [address] Performing Lab: [facility] [address] [facility] [address] [facility] P4 GLU,BUN, CREAT,LY SELENE,CA UREA NITROGEN [MASS/VOLU ME] IN SERUM OR PLASMA 8 mg/dL 7 - 25 02/11 Specimen Type: PLASMA Comment: Tests performed on [employer] (405) SN:[id number] Ordering Provider: APRYL CHAVEZ Report Released Date/Time: Feb 11, 2023 02:29 PM Reporting Lab: [facility] [address] [facility] [address] Performing Lab: [facility] [address] [facility] [address] [facility] P4 GLU,BUN, CREAT,LY SELENE,CA SODIUM [MOLES/VOL UME] IN SERUM OR PLASMA 141 mmol/L 135 - 145 02/11 Specimen Type: PLASMA Comment: Tests performed on [employer] (405) SN:[id number] Ordering Provider: APRYL CHAVEZ Report Released Date/Time: Feb 11, 2023 02:29 PM Reporting Lab: [facility] [address] [facility] [address] Performing Lab: [facility] [address] [facility] [address] [facility] P4 GLU,BUN, CREAT,LY SELENE,CA POTASSIUM [MOLES/VOL UME] IN SERUM OR PLASMA 3.3 mmol/L 3.5 - 5.0 02/11 L Specimen Type: PLASMA Comment: Tests performed on [employer] (405) SN:[id number] Ordering Provider: APRYL CHAVEZ Report Released Date/Time: Feb 11, 2023 02:29 PM Reporting Lab: [facility] [place] [place] [address] [facility] [address] Performing Lab: [facility] [address] [facility] [address] [facility] P4 GLU,BUN, CREAT,LY SELENE,CA CHLORIDE [MOLES/VOL UME] IN SERUM OR PLASMA 103 mmol/L 100 - 110 02/11 Specimen Type: PLASMA Comment: Tests performed on [employer] (405) SN:[id number] Ordering Provider: APRYL CHAVEZ Report Released Date/Time: Feb 11, 2023 02:29 PM Reporting Lab: [place] [facility] [address] [facility] [address] Performing Lab: [facility] [address] [facility] [address] [facility] P4 GLU,BUN, CREAT,LY SELENE,CA CARBON DIOXIDE, TOTAL [MOLES/VOL UME] IN SERUM OR PLASMA 29 mmol/L 20 - 30 02/11 Specimen Type: PLASMA Comment: Tests performed on [employer] (405) SN:[id number] Ordering Provider: APRYL CHAVEZ Report Released Date/Time: Feb 11, 2023 02:29 PM Reporting Lab: [facility] [address] [facility] [address] Performing Lab: [facility] [address] [facility] [address] [facility] P4 GLU,BUN, CREAT,LY SELENE,CA ANION GAP IN SERUM OR PLASMA 9 mmol/L 4 - 16 02/11 Specimen Type: PLASMA Comment: Tests performed on [employer] (405) SN:[id number] Ordering Provider: APRYL CHAVEZ Report Released Date/Time: Feb 11, 2023 02:29 PM Reporting Lab: [place] [facility] [address] [facility] [address] Performing Lab: [facility] [address] [facility] [address] [facility] P4 GLU,BUN, CREAT,LY SELENE,CA GLUCOSE [MASS/VOLU ME] IN SERUM OR PLASMA 100 mg/dL 65 - 100 02/11 Specimen Type: PLASMA Comment: Tests performed on [employer] (405) SN:[id number] Ordering Provider: APRYL CHAVEZ Report Released Date/Time: Feb 11, 2023 02:29 PM Reporting Lab: [facility] [address] [facility] [address] Performing Lab: [facility] [address] [facility] [address] [facility]OC P4 GLU,BUN, CREAT,LY SELENE,CA CREATININE [MASS/VOLU ME] IN SERUM OR PLASMA 0.84 mg/dL 0.5 - 1.5 02/11 Specimen Type: PLASMA Comment: Tests performed on [place] (405) SN:[id number] Ordering Provider: APRYL CHAVEZ Report Released Date/Time: Feb 11, 2023 02:29 PM Reporting Lab: [facility] [address] [facility] [address] Performing Lab: [facility] [address] [facility] [address] [facility] CB P4 GLU,BUN, CREAT,LY SELENE,CA CALCIUM [MASS/VOLU ME] IN SERUM OR PLASMA 9.4 mg/dL 8.5 - 10.5 02/11 Specimen Type: PLASMA Comment: Tests performed on [employer] (405) SN:[id number] Ordering Provider: APRYL CHAVEZ Report Released Date/Time: Feb 11, 2023 02:29 PM Reporting Lab: [facility] [address] [facility] [address] Performing Lab: [facility] [address] [facility] [address] [facility] P4 GLU,BUN, CREAT,LY SELENE,CA GLOMERULAR FILTRATION RATE/1.73 SQ M.PREDICTE D [VOLUME RATE/AREA] IN SERUM, PLASMA OR BLOOD BY CREATININE -BASED FORMULA (CKD-EPI 2020) >90.0mL/ min 02/11 Specimen Type: PLASMA Comment: Tests performed on [place] inDplay (405) SN:[id number] Ordering Provider: APRYL CHAVEZ Report Released Date/Time: Feb 11, 2023 02:29 PM Reporting Lab: [facility] [address] [facility] [facility] [address] Performing Lab: [facility] [address] [address] [address] [facility] GLYCOHEM OGLOBIN (A1C ONLY) HEMOGLOBIN A1C/HEMOGL OBIN.TOTAL [...] Aug 26, 2022 02:09 PM Reporting Lab: [facility] [address] [facility] [facility] [address] Performing Lab: [facility] [address] [facility] [facility] [address] [facility] PSA (ARCHITE CT) PROSTATE SPECIFIC AG [MASS/VOLU ME] IN SERUM OR PLASMA 0.14 ng/mL 0 - 4.0 12/08 Specimen Type: SERUM No comment entered. Ordering Provider: KEM HEIN Report Released Date/Time: Jul 14, 2022 07:32 AM Reporting Lab: [facility] [address] [facility] [address] Performing Lab: [facility] [address] [facility] [address] [facility] Vital Signs Combined list of inpatient and outpatient Vital Signs from Department of Defense and Veterans Affairs, ranging from 12 months to all on record, depending upon the facility. Vital Sign Value Date Comments Source SYSTOLIC BLOOD PRESSURE 107 06/21/2024 12:41:47 [facility] DIASTOLIC BLOOD PRESSURE 69 06/21/2024 12:41:47 [facility] PULSE OXIMETRY 98 06/21/2024 12:41:47 [facility] WEIGHT 121.7 05/08/2024 14:31:52 [facility] BMI 18kg/m2 05/08/2024 14:31:52 [facility] SYSTOLIC BLOOD PRESSURE 130 05/04/2024 13:44:06 [...] PAIN 3 04/06/2024 12:44:02 [facility] HEIGHT 69 04/06/2024 12:44:02 [facility] TEMPERATURE 97.7 04/06/2024 12:44:02 [facility] PULSE 80 04/06/2024 12[facility]44:02 [facility] 20 04/06/2024 12:44:02 [facility] [facility] Encounters Combined list of: 1) Encounters from Department of Veterans Affairs facilities going back up to thelast 18 months. 2) Encounters from the Department of Defense facilities going back up to 280 months. Location Location Details Encounter Type Encounter Number Reason For Visit Attending Provider ADM Date DC Date Status Disposition Source [facility] HC PRO PHONE CALL 5-10 MIN 82874-2.40 5. Diagnos is: ICD-10- CM Z01.818 Encount er for other preproc edural examina tion
PARIS MACHUCA 01/05 [place] [facility] Outpatient Encounter [id number] [id number] Margoth BARKSDALE 01/05 [facility] Outpatient Encounter [id number] [id number] 01/06 [facility] PRO PHONE CALL 5-10 MIN [id number] [id number] Diagnos is: ICD-10- CM Z01.818 Encount er for other preproc edural examina tion
WENDY DE LA CRUZ NNMARIAM E 01/06 [facility] PRO PHONE CALL 5-10 MIN [id number] [id number] Diagnos is: ICD-10- CM Z01.818 Encount er for other preproc edural examina tion
Joellen SIERRA 01/06 [facility] Outpatient Encounter [id number] [id number]/07 [facility] Outpatient Encounter 61015-9.40 5.01/07 [facility] SPECIAL ANESTHESIA SERVICE [id number] [id number] Diagnos is: ICD-10- CM N20.0 Calculu s of kidney< br/> STEVEN CYR M 01/07 [facility] Outpatient Encounter [id number] [id number] Diagnos is: ICD-10- CM N20.0 Calculu s of kidney< br/> KERFOOT,BR ANCH QUIÑONES 01/07 [facility] CYSTO/URET ERO W/LITHOTRI PSY 65184-3.40 5. MICHEL JOHNSON M 01/07 [facility] SPECIAL ANESTHESIA SERVICE 02518-4.40 [id number] Diagnos is: ICD-10- CM N20.0 Calculu s of kidney< br/> BOWDOIN,SH AWN R 01/07 [facility] Outpatient Encounter 53136-3.40 5.01/07 [facility] Outpatient Encounter [id number] 5.01/07 [facility] HC PRO PHONE CALL 5-10 MIN [id number] [id number] Diagnos is: ICD-10- CM Z98.890 Other specifi ed postpro cedural states< br/> SAMANTHA MARTINEZ 01/08 [facility] Outpatient Encounter [id number] [id number] 01/10 [facility] Outpatient Encounter [id number] [id number] 01/12 [facility] Outpatient Encounter [id number] [id number] 01/19 [facility] [place] Outpatient Encounter [id number] [id number] 01/21 [facility] Outpatient Encounter [id number] [id number] 01/22 [facility] [place] [place] Outpatient Encounter [id number] [id number] 01/23 [facility] [place] [place] [place] Outpatient Encounter [id number] [id number] MYRIAM FLORES CIA 01/24 [place] [facility] [facility] [place] [facility] Outpatient Encounter [id number] [id number] 01/25 [facility] [place] Outpatient Encounter [id number] [id number] 01/26 [facility] [place] Outpatient Encounter [id number] [id number]/26 [facility] OFFICE O/P EST MOD 30-39 MIN 11614-3.40 [id number] Diagnos is: ICD-10- CM N20.0 Calculu s of kidney< br/> BETTENCOUR T,DELBERT-CL HERNANDEZ 01/26 [facility] [place] [place] Outpatient Encounter [id number] [id number] 01/31 [facility] [place] Outpatient Encounter [id number] [id number]/01 [facility] Outpatient Encounter [id number] [id number] 02/01 [facility] [place] Outpatient Encounter [id number] [id number] 02/08 [facility] Outpatient Encounter [id number] [id number] 02/09 [facility] OFFICE O/P EST LOW 20-29 MIN 56731-9.40 [id number] Diagnos is: ICD-10- CM Z87.440 Persona l history of urinary (tract) infecti ons<br/ > RHEA CHAVEZ 02/11 [facility] Outpatient Encounter [id number] [id number] BELASHILPA BLAKELYCHRISTO Arora 02/16 [facility] HC PRO PHONE CALL 11-20 MIN 66836-9.40 [id number] Diagnos is: ICD-10- CM F32.9 Major depress finn disorde r, single episode , unspeci fied
BELADAMARIS BLAKELY 02/16 [facility] Outpatient Encounter [id number] [id number] 02/17 [facility] OFF/OP EST MAY X REQ PHY/QHP [id number] [id number] Diagnos is: ICD-10- CM Z01.818 Encount er for other preproc edural examina tion
TIANNA CARR 02/18 [facility] Outpatient Encounter [id number] [id number] 02/19 [facility] OFFICE O/P EST HI 40-54 MIN 80109-2.40 [id number] Diagnos is: ICD-10- CM F32.9 Major depress finn disorde r, single episode , unspeci fied
MARIO MEDINA S 02/25 [facility] Outpatient Encounter [id number] [id number] Diagnos is: ICD-10- CM N20.0 Calculu s of kidney< br/> PAULETTE MANRIQUEZ 03/01 [facility] HC PRO PHONE CALL 5-10 MIN 47876-2.40 [id number] Diagnos is: ICD-10- CM Z01.818 Encount er for other preproc edural examina tion
BLACKCHUNG N MEYER 03/01 [facility] HC PRO PHONE CALL 5-10 MIN [id number] [id number] Diagnos is: ICD-10- CM Z01.818 Encount er for other preproc edural examina tion
XAVIER LUX BATOOL 03/03 [facility] Outpatient Encounter [id number] [id number] 03/04 [facility] Outpatient Encounter [id number] [id number] 03/04 [facility] OFFICE O/P EST SF 10-19 MIN 65375-4.40 [id number] Diagnos is: ICD-10- CM Z01.818 Encount er for other preproc edural examina tion
CORONA PRUITT STOP 03/04 [facility] ANESTH STONE REMOVAL [id number] [id number] Diagnos is: ICD-10- CM N20.0 Calculu s of kidney< br/> CORONA PRUITT STOP 03/04 [facility] Outpatient Encounter [id number] [id number] Diagnos is: ICD-10- CM N20.0 Calculu s of kidney< br/> MICHELLE CUTLER 03/04 [facility] CYSTO/URET ERO W/LITHOTRI PSY 36577-8.40 [id number] Husam RAJPUT 03/04 [facility] En[facility] [id number] [id number] [place] PRUITT STOP 03/04 [facility] POSTOP FOLLOW-UP VISIT 84123-2.40 [id number] Diagnos is: ICD-10- CM Z51.89 Encount er for other specifi ed afterca re
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 Outpatient Encounter [id number] [id number] Diagnos is: ICD-10- CM N20.0 Calculu s of kidney< br/> MICHELLE CUTLER A 04/21 [facility] OFF/OP EST DECEMBER X REQ PHY/QHP 03936-7.40 [id number] Diagnos is: ICD-10- CM Z01.818 Encount er for other preproc edural examina tion
TIANNA CARR A 04/23 [facility] Outpatient Encounter [id number] [id number]/23 [facility] Outpatient Encounter [id number] [id number] Diagnos is: ICD-10- CM N20.0 Calculu s of kidney< br/> PAULETTE MANRIQUEZ J 04/23 [facility] HC PRO PHONE CALL 5-10 MIN [id number] [id number] Diagnos is: ICD-10- CM Z01.818 Encount er for other preproc edural examina tion
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< br/> Joellen OSORIO MD 04/29 [facility] CYSTO/URET ERO W/LITHOTRI PSY 07233-2.40 [id number] Husam RAJPUT 04/29 [facility] Outpatient Encounter [id number] [id number] [place] PRUITT STOP 04/29 [facility] OFFICE O/P EST MOD 30-39 MIN [id number] [id number] Diagnos is: ICD-10- CM N20.0 Calculu s of kidney< br/> [facility] 04/29 [facility] SPECIAL ANESTHESIA SERVICE [id number] [id number] Diagnos is: ICD-10- CM 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< br/> [facility] 04/29 [facility] Outpatient Encounter [id number] [id number] Joellen SIERRA 04/29 [facility] POSTOP FOLLOW-UP VISIT 55297-7.40 [id number] Diagnos is: ICD-10- CM N20.0 Calculu s of kidney< br/> [facility] 04/29 [facility] Outpatient Encounter [id number] [id number] 04/30 [facility] Outpatient Encounter [id number] [id number] 05/01 [facility] OFFICE O/P EST MOD 30-39 MIN 25568-3.40 [id number] Diagnos is: ICD-10- CM I71.40 Abdomin al aortic aneurys m, without rupture , unspeci fied
STONE,WYATT D H 05/06 [facility] Outpatient Encounter [id number] [id number] 05/10 [facility] Outpatient Encounter [id number] [id number] 05/24 [facility] Outpatient Encounter [id number] [id number] 05/26 [facility] Outpatient Encounter [id number] [id number] 06/02 [facility] OFFICE O/P EST HI 40-54 MIN 23491-6.40 [id number] Diagnos is: ICD-10- CM N20.0 Calculu s of kidney< br/> KERFOOT,BR ANCH QUIÑONES 06/16 [facility] OFF/OP EST DECEMBER X REQ PHY/QHP [id number] [id number] Diagnos is: ICD-10- CM Z23 Encount er for immuniz ation<b r/> LACLAIR,CH RISTINE M 06/17 [facility] Outpatient Encounter [id number] [id number] 06/22 [facility] Outpatient Encounter [id number] [id number] 06/30 [facility] Outpatient Encounter 76835-1.40 [id number]/05 [facility] MED NUTRITION INDIV SUBSEQ [id number] [id number] Diagnos is: ICD-10- CM Z68.1 Body mass index [BMI] 19.9 or less, adult<b r/> Jeimy GANDHI ILL C 07/12 [facility] FEE 37388-4.40 [id number] Diagnos is: ICD-10- CM Z68.1 Body mass index [BMI] 19.9 or less, adult<b r/> Jeimy GANDHI ILL C 07/[facility] Outpatient Encounter [id number] [id number] 07/13 [facility] Outpatient Encounter [id number] [id number] 07/13 [facility] Outpatient Encounter [id number] [id number] 08/22 [facility] Outpatient Encounter 31389-7.40 [id number] 08/24 [facility] Outpatient Encounter [id number] [id number] 08/24 [facility] Outpatient Encounter [id number] [id number] 08/24 [facility] Outpatient Encounter [id number] [facility] 08/25 [facility] Outpatient Encounter [id number] [id number] 09/06 [facility] [facility] OFFICE O/P EST HI 40 MIN 44281-6.40 [id number] 00 Diagnos is: ICD-10- CM N20.0 Calculu s of kidney< br/> KERFOOT,JOLIE CARIAS QUIÑONES 09/15 [facility] Outpatient Encounter [id number] [id number] 10/18 [facility] Outpatient Encounter [id number] [id number] 10/21 [facility] Outpatient Encounter [id number] [id number] 11/01 [facility] OFFICE O/P EST LOW 20 MIN 17681-6.40 [id number] Diagnos is: ICD-10- CM I71.40 Abdomin al aortic aneurys m, without rupture , unspeci fied
STONE,WYATT D H 11/03 [facility] Outpatient Encounter [id number] [id number] 11/04 [facility] Outpatient Encounter [id number] [id number] 11/09 [facility] Outpatient Encounter 07139-5.40 [id number] 11/14 [facility] Outpatient Encounter [id number] [id number] 11/22 [facility] Outpatient Encounter [id number] [id number] 11/23 [facility] Outpatient Encounter [id number] [id number] 11/28 [facility] Outpatient Encounter [id number] [id number] 11/30 [facility] Outpatient Encounter [id number] [id number] 11/30 [facility] OFF/OP EST DECEMBER X REQ PHY/QHP 69892-9.40 [id number] Diagnos is: ICD-10- CM Z01.818 Encount er for other preproc edural examina tion
TIANNA CARR 12/09 [facility] FEE 24320-8.40 [id number] Diagnos is: ICD-10- CM Z71.3 Dietary work counselor ing and surveil jean<b r/> DANITA HOUSTON 12/12 [facility] MED NUTRITION INDIV SUBSEQ 77752-3.40 [id number] Diagnos is: ICD-10- CM Z71.3 Dietary work counselor ing and surveil jean<b r/> Jeimy GANHDI ILL C 12/12 [facility] Outpatient Encounter [id number] [id number] Diagnos is: ICD-10- CM I71.40 Abdomin al aortic aneurys m, without rupture , unspeci fied
CORONA PRUITT 12/14 [facility] HC PRO PHONE CALL 5-10 MIN [id number] [id number] Diagnos is: ICD-10- CM Z01.818 Encount er for other preproc edural examina tion
XAVIER LUX BATOOL 12/14 [facility] Outpatient Encounter [id number] [id number] 12/15 [facility] Outpatient Encounter [id number] [id number] 12/15 [facility] Outpatient Encounter 83825-4.40 [id number] MELISSA JAVIER 12/15 [facility] Outpatient Encounter [id number] [id number] BANAIMA IDT,ALICIA 12/15 [facility] Outpatient Encounter [id number] [id number] KERFOOT,BR ANCH QUIÑONES 12/15 [facility] CYSTO/URET ERO W/LITHOTRI PSY 64180-4.40 [id number] WARREN WEAVERI N E 12/15 [facility] Outpatient Encounter [id number] [id number] KARINA VALADEZT,ALICIA 12/15 [facility] OFFICE O/P EST SF 10 MIN 29686-8.40 [id number] Diagnos is: ICD-10- CM Z01.818 Encount er for other preproc edural examina tion
CONCEPCION,MELISSA 12/15 [facility] POSTOP FOLLOW-UP VISIT 81671-7.40 [id number] Diagnos is: ICD-10- CM Z48.89 Encount er for other specifi ed surgica l afterca re
CONCEPCION,MELISSA 12/15 [facility] Outpatient Encounter 15522-7.40 [id number] HILARIO RIGGS FELIX L 12/15 [facility] Outpatient Encounter [id number] [id number] 12/16 [facility] [place] CYSTOSCOPY [id number] [id number] Diagnos is: ICD-10- CM N20.0 Calculu s of kidney< br/> KERFOOT,BR ANCH QUIÑONES 12/20 [facility] Outpatient Encounter [id number] [id number] 12/20 [facility] Outpatient Encounter [id number] [id number] DANNY WRIGHT [place] 12/21 [facility] Outpatient Encounter [id number] [id number] 12/25 [facility] Outpatient Encounter [id number] [id number] 12/25 [facility] Outpatient Encounter [id number] [id number] 12/26 [facility] Outpatient Encounter [id number] [id number] 12/27 [place] [facility] [place] [facility] Outpatient [facility]counter [id number] 12/27 [place] [facility] [place] [facility] Outpatient [facility]counter [id number] 12/28 [place] [facility] [place] [facility] Outpatient Encounter [id number] 12/29 [place] [facility] [place] [facility] Outpatient Encounter [id number] 01/17 [place] [facility] [place] [facility] Outpatient Encounter [id number] 01/25 [place] [facility] [place] [facility] Outpatient Encounter [id number] 02/15 [place] [facility] [place] [facility] OFFICE O/P EST HI 40 MIN [id number] Diagnos is: ICD-10- CM F01.A3 Vascula r dementi a, mild, with mood disturb ance
MARIO MEDINA CA S 02/20 [place] [facility] [place] [facility] Outpatient Encounter [id number] 02/24 [place] [facility] [place] [facility] Outpatient Encounter [id number] 02/25 [place] [facility] [place] [facility] Outpatient Encounter [id number] 02/28 [place] [facility] [place] [facility] Outpatient Encounter [id number] 02/28 [place] [facility] [place] [facility] Outpatient Encounter [id number] 03/01 [place] [facility] [place] [facility] Outpatient [facility]counter [id number] 03/01 [place] [facility] [place] [facility] Outpatient [facility]counter [id number] 03/03 [place] [facility] [place] [facility] Outpatient Encounter [id number] 03/06 [place] [facility] [place] [facility] Outpatient [facility]counter [id number] 03/15 [place] [facility] [place] [facility] Outpatient [facility]counter [id number] 03/17 [facility] [facility] Outpatient Encounter [id number] 03/21 [facility] Outpatient Encounter [id number] 03/27 [facility] Outpatient Encounter [id number] [id number] 04/01 [facility] Outpatient Encounter [id number] 04/05 [facility] OFFICE O/P EST MOD 30 MIN [id number] [id number] Diagnos is: ICD-10- CM 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
KARYN VELASQUEZ NN 04/06 [facility] OFFICE O/P EST MOD 30 MIN [id number] Diagnos is: ICD-10- CM L89.890 Pressur e ulcer of other site, unstage able
KARYN VELASQUEZ NN 04/06 [facility] Outpatient Encounter [id number] [id number] 04/07 [facility] Outpatient Encounter [id number] [id number] 04/07 [facility] Outpatient Encounter [id number] [id number] 04/08 [facility] Outpatient Encounter [id number] [id number] 04/08 [facility] Outpatient Encounter [id number] 04/10 [facility] Outpatient Encounter [id number] [id number] 04/10 [facility] Outpatient Encounter [id number] 04/10 [facility] FEE [id number] Diagnos is: ICD-10- CM L89.43 Pressr ulcer of contig site of back, buttock and hip, stg 3
ADITI GARCIA 04/11 [facility] APPROPOS MTHD OFFLOADING RXD [id number] [id number] Diagnos is: ICD-10- CM L89.43 Pressr ulcer of contig site of back, buttock and hip, stg 3
Keaton QUINTERO 04/11 [facility] Outpatient Encounter [id number] [id number] 04/13 [facility] Outpatient Encounter [id number] [id number] 04/14 [facility] Outpatient Encounter [id number] [id number] 04/17 [facility] Outpatient Encounter [id number] [id number] 04/19 [facility] Outpatient Encounter [id number] [id number] 04/21 [facility] Outpatient Encounter [id number] [id number] 04/26 [facility] Outpatient Encounter [id number] [id number] 04/27 [facility] Outpatient Encounter [id number] [id number] 05/02 [facility] OFFICE O/P EST HI 40 MIN [id number] Diagnos is: ICD-10- CM N20.1 Calculu s of ureter< br/> KERFOOT,BR ANCH QUIÑONES 05/03 [facility] Outpatient Encounter [id number] [id number] 05/04 [facility] OFFICE O/P EST MOD 30 MIN [id number] [id number] Diagnos is: ICD-10- CM I71.40 Abdomin al aortic aneurys m, without rupture , unspeci fied
VIMAL FAM L 05/04 [facility] FEE [id number] [id number] Diagnos is: ICD-10- CM Z71.3 Dietary work counselor ing and surveil jean<b r/> ADITI GARCIA 05/08 [facility] MED NUTRITION INDIV SUBSEQ [id number] [id number] Diagnos is: ICD-10- CM Z71.3 Dietary work counselor ing and surveil jean<b r/> PURNIMA CROOK 05/08 [facility] Outpatient Encounter [id number] [id number] 05/12 [facility] Outpatient Encounter [id number] [id number] 05/12 [facility] FEE [id number] [id number] Diagnos is: ICD-10- CM L89.893 Pressur e ulcer of other site, stage 3
ADITI GARCIA 05/16 Jorge A [facility] RY OC [facility] APPROPOS MTHD OFFLOADING RXD [id number] Diagnos is: ICD-10- CM L89.43 Pressr ulcer of contig site of back, buttock and hip, stg 3
Keaton QUINTERO 05/16 [facility] Outpatient Encounter [id number] [id number] SAMMIEDAMARIS R 05/17 [facility] Outpatient Encounter [id number] [id number] 05/17 [facility] Outpatient Encounter [id number] [id number] 05/19 [facility] Outpatient Encounter [id number] [id number] 05/23 [facility] Outpatient Encounter [id number] [id number] 05/24 [facility] Outpatient Encounter [id number] [id number] 05/26 [facility] Outpatient Encounter [id number] [id number] 05/26 [facility] Outpatient Encounter [id number] [id number] 05/28 [facility] Outpatient Encounter [id number] [id number] 05/29 [facility] Outpatient Encounter [id number] [id number] 05/31 [facility] Outpatient Encounter [id number] [id number] 06/03 [facility] Outpatient Encounter [id number] [id number] 06/07 [facility] IRRIGATION TRAY [id number] [id number] Diagnos is: ICD-10- CM R33.8 Other retenti on of urine<b r/> SALCEDO,CR ISTINA 06/07 [facility] EMERGENCY DEPT VISIT [facility] [id number] [id number] Diagnos is: ICD-10- CM R33.9 Retenti on of urine, unspeci fied
LORI CERNA 06/07 [facility] Outpatient Encounter [id number] [id number] 06/08 [facility] Outpatient Encounter [id number] [id number] 06/12 [facility] Outpatient Encounter [id number] [id number] 06/12 [facility] Outpatient Encounter [id number] [id number] 06/12 [facility] FEE [id number] [id number] Diagnos is: ICD-10- CM L89.43 Pressr ulcer of contig site of back, buttock and hip, stg 3
ADITI GARCIA 06/13 [facility] FOAM DRG <=16 SQ IN W/BORDER [id number] [id number] Diagnos is: ICD-10- CM L89.43 Pressr ulcer of contig site of back, buttock and hip, stg 3
Keaton QUINTERO C 06/13 [facility] Outpatient Encounter [id number] [id number] 06/14 [facility] CASE MANAGEMENT [id number] [id number] Diagnos is: ICD-10- CM Z02.9 Encount er for adminis trative examina tions, unspeci fied
CARISA AARON R 06/14 [facility] Outpatient Encounter [id number] [id number] 06/16 [facility] Outpatient Encounter [id number] [id number] 06/16 [facility] HC PRO PHONE CALL 5-10 MIN [id number] [id number] Diagnos is: ICD-10- CM Z02.9 Encount er for adminis trative examina tions, unspeci fied
JENA PENA BRIDGER 06/19 [facility] Outpatient Encounter [id number] [id number] 06/19 [facility] Outpatient Encounter [id number] [id number] 06/20 [facility] CASE MANAGEMENT [id number] [id number] Diagnos is: ICD-10- CM Z02.9 Encount er for adminis trative examina tions, unspeci fied
ERINN DE LA CRUZ CE 06/21 [facility] URINARY LEG OR ABDOMEN BAG [id number] [id number] Diagnos is: ICD-10- CM R33.8 Other retenti on of urine<b r/> SALCEDO,CR ISTINA 06/21 [facility] HC PRO PHONE CALL 5-10 MIN [id number] [id number] Diagnos is: ICD-10- CM Z02.9 Encount er for adminis trative examina tions, unspeci fied
JENA PENA TE BRIDGER 06/22 [facility] CASE MANAGEMENT [id number] [id number] Diagnos is: ICD-10- CM Z02.9 Encount er for adminis trative examina tions, unspeci fied
TRUNGBertramMONSTERERINN GAYLE CE 06/26 [facility] Outpatient Encounter [id number] [id number] 06/27 [facility] Outpatient Encounter [id number] [id number] 06/28 [facility] HLTH BHV ASSMT/REAS SESSMENT [id number] [id number] Diagnos is: ICD-10- CM Z02.9 Encount er for adminis trative examina tions, unspeci fied
LIV,PARIS RA 06/30 [facility] Outpatient Encounter [id number] [id number] Diagnos is: ICD-10- CM I71.40 Abdomin al aortic aneurys m, without rupture , unspeci fied
MICUCCI,SA LLY 06/30 [facility] Outpatient Encounter [id number] [id number] 07/04 [facility] Outpatient Encounter [id number] [id number] 07/05 [facility] Outpatient Encounter [id number] [id number] 07/06 [facility] HC PRO PHONE CALL 5-10 MIN [id number] [id number] Diagnos is: ICD-10- CM Z02.9 Encount er for adminis trative examina tions, unspeci fied
LIV,PARIS RA 07/06 [facility] Outpatient Encounter [id number] [id number] 07/07 [facility] Procedures Combined list of: 1) Procedures from [facility], not all [place] non-surgical procedures are included; 2) All procedures from the Department of [facility] facilities. Procedure Procedure Type Code Date Perfomer Comments Sourc e BILATERAL URETEROSCOPY LASER LITHOTRIPSY STENT PLACEMENT CYSTO/URETERO W/LITHOTRIPSY 54348 12/16/2023 SHIRA SOTO [facility] BILATERAL URETEROSCOPY, ..., STENT PLACEMENT CYSTO/URETERO W/LITHOTRIPSY 78152 04/29/2023 SHIRA OSTO [facility] BILATERAL URETEROSCOPY AND BILATERAL STENT PLACEMENT CYSTO/URETERO W/LITHOTRIPSY 35209 03/04/2023 CORAL MORENO [facility] Social [...] tobacco use VA-TOBACCO USER EVERY DAY 05/14/2022 [facility] History of tobacco use [...] of tobacco use VA-TOBACCO FORMER USER 06/27/2020 [facility] History of tobacco use VA-TOBACCO USE MED NO 12/28/2018 [facility] History of tobacco use CURRENT SMOKER 10/29/2017 cigarettes >20pk yrs [facility] History of tobacco use CURRENT SMOKER 08/10/2016 [facility] History of tobacco use CURRENT SMOKER 04/04/2015 Less than a pack a day [facility] Plan of Care List of future care activities from Department of [facility] facilities. Additional future care activities may be listed in the Assessment and Plan section. Date/Time Care Activity Care Activity Detail Facili ty 07/11/2024 AMBULATORY - SURGERY AMBULATORY - SURGERY [facility] 07/11/2024 AMBULATORY - SURGERY AMBULATORY - SURGERY [facility] 07/24/2024 AMBULATORY - SURGERY AMBULATORY - SURGERY [facility] 07/27/2024 AMBULATORY - NONE AMBULATORY - NONE [facility] 08/29/2024 AMBULATORY - NONE AMBULATORY - NONE [facility] 08/29/2024 AMBULATORY - SURGERY AMBULATORY - SURGERY [facility] 10/23/2024 AMBULATORY - MEDICINE AMBULATORY - MEDICI NE [facility] 10/23/2024 AMBULATORY - NONE AMBULATORY - NONE [facility] 06/28/2024 Consult Order PALLIATIVE CARE OUTPATIENT Cons [facility] 07/06/2024 Consult Order CSP PCAFC HOME-C ARE ASSESSMENT OUTPT [facility] 07/07/2024 Consult Order OCCUPATIONAL THE RAPY OUTPATIENT Cons [facility] Advance Directives List of completed, amended, or rescinded Advance Directives on record at Department of [facility] facilities. An actual copy of the Directive is not included. Date Advance Directive Provider Source 11/18/2017 ADVANCE DIRECTIVE RADHA FERNANDEZ [facility] 07/08/2017 ADVANCE DIRECTIVE DISCUSSION PURNIMA ROJAS [facility]
--- OUTSIDE RECORDS SUMMARY | 2024-07-08 01:30 | XMS_ITS | Clinical Summary ---
Author Organization [facility] Address [address] [place] [address] Care Team Providers Care Conference Interpreter Name Role Phone JanAlfredo Jorge GARDNER Primary [...] (2023- season) 2024 Insurance [employer] [place]ICARE [place] Care Teams Conference Interpreter Relationship Specialty Start Date End Date Alfredo Montoya DO [address] [place] [address] PCP - General Internal Medicine - Primary Care 05/23/21
--- OUTSIDE RECORDS SUMMARY | 2024-07-08 01:30 | XMS_ITS | Referral Summary ---
Author Organization [facility] Address [address] [place] [address] Care Team Providers Care Restaurant Kitchen And Service Manager Name Role Phone Alfredo Montoya Primary Care Provider Social History Tobacco Use Types Packs/Day Years Used Date Smoking Tobacco: Never Assessed Sex and Gender Information Value Date Recorded Sex Assigned at Not on file Legal Sex Male 16:57 EDT Gender Identity Not on file Sexual Orientation Not on file Plan of Treatment Not on file Insurance [employer] [place]ARE [place] Care Teams Restaurant Kitchen And Service Manager Relationship Specialty Start Date End Date Alfredo Montoya DO [address] [place] [address] PCP - General Internal Medicine - Primary Care 05/23/21
--- OUTSIDE RECORDS SUMMARY | 2024-07-08 01:30 | XMS_ITS | Encounter Summary ---
Author Organization [facility] Address [address] [place] [address] Care Team Providers Care Housekeeper Child Care Name Role Phone Jan Alfredo Jorge GARDNER Primary Care Provider Encounter Details Date Type Department Care Team (Late st Contact Info) Description 06/09/2021 Lab Requisition [facility] Pathology & Laboratory Medicine - [address] [address] America Cohn MD [address] [place] [address] Encounter for other general examination Social History [...] management options, if applicable. 06/10/2021 12:51 EDT [facility] Final Diagnosis A. SKIN OF GROIN, RIGHT, SHAVE BIOPSY: - Benign verruciform keratosis, consistent with verruca vulgaris. See microscopic. 06/10/2021 12:51 EDT [facility] Attestation By the signature below, the attending physician certifies that they have 1) personally conducted a gross and/or microscopic examination of the described specimen(s), and/or personally interpreted the results of laboratory testing of the described specimen(s), and 2) personally rendered or confirmed the above diagnosis. 06/10/2021 12:51 [facility] at 1251 Microscopic Description The findings show an acanthotic and verruciform keratosis. Scattered viral cytopathic effect with abrupt parakeratosis is noted favoring a viral-related process. The features are most suggestive of a verruca vulgaris. 06/10/2021 12:51 [facility] Clinical History Pigmented lesion right groin; clinical diagnosis code: D49.2 06/10/2021 12:51 [facility] Gross Description A. Received [...] en face A2-A4- 4 central sections MARISOL HOGAN([facility]) 06/09/2021 17:32 06/10/2021 12:51 [facility] Performing Lab [facility] 06/10/2021 12:51 [facility] Scanned Images 06/10/2021 12:51 [facility] Tissue TISSUE SPECIMEN FROM SKIN / Unknown 06/06/2021 11:45 EDT 06/09/2021 17:01 EDT us America Cohn MD PATHOLOGY ORDERABLES Final Resul t [facility] [address] [place] [address] documented in this encounter Visit Diagnoses Diagnosis Encounter for other general examination documented in this encounter Care Teams Housekeeper Child Care Relationship Specialty Start Date End Date Alfredo Montoya DO [address] [place] [address] PCP - General Internal Medicine - Primary Care 05/23/21 documented as of this encounter
--- OUTSIDE RECORDS SUMMARY | 2024-07-08 01:30 | XMS_ITS | Encounter Summary ---
Author Organization [facility] [place] [address] Care Team Providers Care Despatch Clerk Name Role Phone Amanda Pino Primary Care Provider [phone] Encounter Details Date Type Department Care Team (Late st Contact Info) Description 11/23/2023 Telephone Urology at [facility] [place] [phone] Donna Ramsey RN Social History Tobacco Use [...] - 11/23/2023 5:07 PM EDT Copied from [facility] #[id number]. Topic: Specialty Dept CRMs - Generic Call [...] EDT Office Visit Radiation Oncology at [address] [phone] Taya De La Vega PA [facility] DR [place] [address] 11/13/2024 2:00 PM EDT Office Visit Hematology/Oncology at [address] [phone] Kirt Kennedy MD [facility] DR [place] [address] Alem Lazaro APRN [address] [place] [address] DR HEMATOLOGY AND ONCOLOGY [place], [place] [phone] documented as of this encounter Visit Diagnoses Not on filedocumented in this encounter Care Teams Despatch Clerk Relationship Specialty Start Date End Date Amanda Pino PA [address] [place] [address] PCP - General Internal Medicine 04/28/23 documented as of this encounter
--- OUTSIDE RECORDS SUMMARY | 2024-07-08 01:30 | XMS_ITS ---
Author Organization [facility] Address [facility] [address] Care Team Providers Care Carboy Filler Name Role Phone Amanda Pino Primary Care Provider [phone] Active Problems Problem Noted Date Diagnosed Date [...] Intracranial bleed 09/02/2020 Overview (11/07/2020): Treated in [place] for brain aneurism Malignant neoplasm of prostate [...] treatments are documented for this patient in [facility]. Treatments may have been [...]
--- OUTSIDE RECORDS SUMMARY | 2024-07-08 01:30 | XMS_ITS | Encounter Summary ---
Author Organization [facility] Address [facility] [place] [address] Care Team Providers Care Due Diligence Coordinator Name Role Phone Amanda Pino Primary Care Provider Encounter Details Date Type Department Care Team (Late st Contact Info) Description 11/24/2023 [place] [phone] Adan Navarrete Jr., MD [facility] [place] [address] Social History Tobacco Use Types Packs/Day Years [...] left renal stones not yet addressed). However, [facility] did not extend approval for surgicalcare here at [facility], and after discussion with [facility] chief of urology Dr Smith, I was informed they could perform the bilateral ureteroscopy at the [facility] and thus did not need intervention at [facility]. I explained to patient and his that they will need to pursue follow up at [facility] for 2nd look ureteroscopy and stent removal/exchange, but offered that I would be happy to be available at [facility] at any time if they cannot arrange timely follow up at the [facility]. Stets were placed 10/21/23, Demario recommended stents should be removed or exchanged within maximum 10-12 weeks They agree to call us if needed if stents not addressed in that time frame documented in this encounter Plan of Treatment Upcoming Encounters Date Type Department Care Team (Late st Contact Info) Description 11/09/2024 10:30 AM EDT Office Visit Radiation Oncology at [address] [phone] Taya De La Vega PA [facility] DR [place] [address] 11/13/2024 2:00 PM EDT Office Visit Hematology/Oncology at [address] [phone] Kirt Kennedy MD [facility] HEMATOLOGY [place] [address] Alem Lazaro APRN [address] [place] [address] DR HEMATOLOGY AND ONCOLOGY [place], [place] [phone] documented as of this encounter Visit Diagnoses Not on filedocumented in this encounter Care Teams Due Diligence Coordinator Relationship Specialty Start Date End Date Amanda Pino PA [address] [place] [address] PCP - General Internal Medicine 04/28/23 documented as of this encounter
--- OUTSIDE RECORDS SUMMARY | 2024-07-08 01:30 | XMS_ITS | Encounter Summary ---
Author Organization [facility] Address [facility] [place] [address] Care Team Providers Care Stock Control Clerk Name Role Phone Amanda Pino Primary Care Provider [phone] Encounter Details Date Type Department Care Team (Late st Contact Info) Description 11/11/2023 10:30 AM EDT Office Visit Radiation Oncology at [address] [phone] Taya De La Vega PA [facility] DR HEMATOLOGY [place] [address] Malignant neoplasm of prostate (Primary Dx); S/P [...] Vega PA - 11/11/2023 10:30 AM EDT [facility] [place] [address] FOLLOW-UP: Patient: Narcisa Eduardo : 1945 PCP: Amanda Pino PA-C ([facility]) Urologist: Adan Navarrete Jr., MD ([facility]; last seen 09/06/23), also sees Urology at [facility] Radiation Oncologist: Que Evans MD Chief Complaint: Follow-up for 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 TRUS biopsyon 11/23/19 showed Clinton 4+3 x 1 on the left, Clinton 3+4 x 3 bilaterally, and Clinton 3+3 x 2 bilaterally. On 12/01/19, patient saw Dr. Thomas at the [facility], who discussed various treatment options. Patient [...] a history. He follows with Neurology at [facility] (Dr. Wendie Garcia). He also has a history of follicular lymphoma, managed by Dr. Kennedy at [facility]. He last received [...] Follow-Up: Next visit: 6 months (04/2024) Labs ([facility]): PSA Narcisa Eduardo had the opportunity to [...] EDT Office Visit Radiation Oncology at [address] [phone] Taya De La Vega PA [facility] DR HEMATOLOGY [place] [address] 11/13/2024 2:00 PM EDT Office Visit Hematology/Oncology at [address] [phone] Kirt Kennedy MD [facility] DR HEMATOLOGY [place] [address] Alem Lazaro APRN [address] [place] [address] DR HEMATOLOGY AND ONCOLOGY [place], [place] [address] documented as of this encounter Visit Diagnoses Diagnosis Malignant neoplasm of prostate- Primary S/P radiotherapy Convalescence following radiotherapy documented in this encounter Care Teams Stock Control Clerk Relationship Specialty Start Date End Date Amanda Pino PA [address] [place] [address] PCP - General Internal Medicine 04/28/23 documented as of this encounter
--- OUTSIDE RECORDS SUMMARY | 2024-07-08 01:30 | XMS_ITS | Clinical Summary ---
Author Organization [facility] Address [facility] [place] [address] Care Team Providers Care Electric Utility Lineworker Name Role Phone Amanda Pino Primary Care Provider Allergies Active Allergy Reactions Criticality Noted Date [...] Intracranial bleed 09/02/2020 Overview (11/07/2020): Treated in [facility] for brain aneurism Malignant neoplasm of prostate [...] EDT Office Visit Radiation Oncology at [address] [phone] Taya De La Vega PA [...] EDT Office Visit Radiation Oncology at [address] [phone] Taya De La Vega PA [facility] HEMATOLOGY [place] [address] 11/13/2024 2:00 PM EDT Office Visit Hematology/Oncology at [address] [phone] Kirt Kennedy MD [facility] HEMATOLOGY [place] [address] Alem Lazaro APRN [address] [place] [address] [place] [address] Health Maintenance Due Date Last Done Comments Pneumoccocal Vaccine: 65+ (1 of 2 - PCV) 1951 Tetanus/Diphtheria/Pertussis Vaccines (1 - Tdap) 09/24 Zoster vaccine (1 of 2) 1995 Advance Directive 2000 Covid-19 Vaccine (1 - 2023-25 season) 2024 Influenza (Flu) vaccine (1 o f 1 - Influenza standard series) 04/23/2024 Hepatitis C Screening Completed 04/03/2015 Medical Devices Implanted Type Area Boom Boss Device Identifier Shelf Expiration Date Model / Serial / Lot Stent Ureteral [id number] Set Dbl Pgtl Tpr Tip Ptfe Hyconi ([id number]) (Autoreq) - [id number] Implanted:Qty : 1 on 10/21/2023 by Adan Navarrete Jr., MD at [facility] IMPLANTS Right: Ureter [employer] [id number] 06/10/2026 [id number] 60 / / [id number] Stent Ureteral [id number] Dbl Pgtl Ptfe Tria ([id number]) - [id number] Implanted:Qty : 1 on 10/21/2023 by Adan Navarrete Jr., MD at [facility] IMPLANTS Left: Ureter [employer] [id number] 12/08/2025 [id number] 30 / / [id number] Explanted Type Area Boom Boss Device Identifier Shelf Expiration Date Model / Serial / Lot Stent Ureteral [id number] Dbl Pgtl Ptfe Tria ([id number]) - [id number] Implanted:Qty : 1 on 08/05/2023 by Adan Navarrete Jr., MD at [facility] Explanted:Qty : 1 on 10/21/2023 by Adan Navarrete Jr., MD at [facility] IMPLANTS Left: Ureter [employer] [id number] 01/17/2026 [id number] / / [id number] Stent Ureteral [id number] Dbl Pgtl Soft Ptfe Tria ([id number]) - [id number] Implanted:Qty : 1 on 08/05/2023 by Adan Navarrete Jr., MD at [facility] Explanted:Qty : 1 on 10/21/2023 by Adan Navarrete Jr., MD at [facility] IMPLANTS Right: Ureter [employer] [id number] 02/04/2026 [id number] / / [id number] Procedures Procedure Name Priority Date/Time Associated Diagnosis [...] EDT) Hepatitis C Antibody Negative Negative [facility] Blood specimen (specimen) 04/03/2015 3:27 PM EDT 04/03/2015 3:43 PM EDT Narrative Resulting Agency Comment Spec In Lab Eileen Cheung MD CHEMISTRY ORDERA BLES [facility]AF[facility] BARDAL[facility] from Last 3 Months or Most Recently Relevant to Health Maintenance Advance Directives Documents on File Type Date Recorded Patient Bale Tie Machine Operator Expl anation Personal Bale Tie Machine Operator 10/21/2023 11:59 AM * Attempt Cardiopulmonary Resuscitation [...] Status decision made by: Patient Care Teams Electric Utility Lineworker Relationship Specialty Start Date End Date Amanda Pino PA [address] [place] [address] PCP - General Internal Medicine 04/28/23
--- OUTSIDE RECORDS SUMMARY | 2024-07-08 01:30 | XMS_ITS | Encounter Summary ---
Author Organization [facility] [place] [address] Care Team Providers Care Piece Dyeing Machine Tender Name Role Phone Amanda Pino Primary Care Provider [phone] Encounter Details Date Type Department Care Team (Late st Contact Info) Description 11/15/2023 Telephone Urology at [facility] [place] [phone] Donna Ramsey RN Social History Tobacco Use [...] EDT Faxed urine culture order to [facility] at [phone] * Telephone Encounter - Donna Ramsey RN - 11/15/2023 11:35 AM EDT Copied from [facility] #[id number]. Topic: Specialty Dept CRMs - Generic Call >> Nov 15, 2023 11:28 AM Charlotte Muñiz wrote: Specialist: Landon Relationship (if other than patient-full name): Marisol Barrient[facility] Reason for Call: patient is at the lab, please send over urine order Urine culture (Order [id number]) documented in this encounter Plan of Treatment Upcoming Encounters Date Type Department Care Team (Late st Contact Info) Description 11/09/2024 10:30 AM EDT Office Visit Radiation Oncology at [address] [phone] Taya De La Vega PA [facility] DR [place] [address] 11/13/2024 2:00 PM EDT Office Visit Hematology/Oncology at [address] [phone] Kirt Kennedy MD [facility] DR [place] [address] Alem Lazaro APRN [address] [place] [address] DR [place] [address] documented as of this encounter Visit Diagnoses Not on filedocumented in this encounter Care Teams Piece Dyeing Machine Tender Relationship Specialty Start Date End Date Amanda Pino PA [address] [place] [address] PCP - General Internal Medicine 04/28/23 documented as of this encounter
--- OUTSIDE RECORDS SUMMARY | 2024-07-08 01:30 | XMS_ITS | Encounter Summary ---
Author Organization [facility] Address [facility] [place] [address] Care Team Providers Care Financial Sales Manager Name Role Phone Amanda Pnio Primary Care Provider [phone] Encounter Details Date Type Department Care Team [...] EDT Office Visit Radiation Oncology at [address] [phone] [address] De La Vega PA [facility] DR HEMATOLOGY [place] [address] 11/13/2024 2:00 PM EDT Office Visit Hematology/Oncology at [address] [phone] [facility] DR [place] [address] Alem Lazaro APRN [address] [place] [address] DR [place]EMATOLOGY [place] [address] documented as of this encounter Visit Diagnoses Not on filedocumented in this encounter Care Teams Financial Sales Manager Relationship Specialty Start Date End Date Amanda Pino PA [address] [place] [address] PCP - General Internal Medicine 04/28/23 documented as of this encounter
--- OUTSIDE RECORDS SUMMARY | 2024-07-08 01:30 | XMS_ITS | Encounter Summary ---
Author Organization [facility] Address [facility] [place] [address] Care Team Providers Care Treatment Technician Name Role Phone Amanda Pino Primary Care Provider Encounter Details Date Type Department Care Team (Late st Contact Info) Description 11/12/2023 [place] [phone] Cortez Arrington MD [facility] [place] [address] Social History Tobacco Use Types Packs/Day Years [...] Called patient to discuss culture results from [facility] obtained on 11/10/23. He has upcoming procedure with Dr. Navarrete on 11/25/23. Recommended repeat Ucx to guide preoperative prophylaxis as necessary. New requisition sent to [facility]. Emphasized clean catch technique. Cortez Arrington MD documented in this encounter Plan of Treatment Upcoming Encounters Date Type Department Care Team (Late st Contact Info) Description 11/09/2024 10:30 AM EDT Office Visit Radiation Oncology at [address] [phone] Taya De La Vega PA [facility] DR HEMATOLOGY [place] [address] 11/13/2024 2:00 PM EDT Office Visit Hematology/Oncology at [address] [phone] Kirt Kennedy MD [facility] DR HEMATOLOGY [place] [address] Alem Lazaro APRN [address] [place] [address] DR HEMATOLOGY AND ONCOLOGY [place], [place] [address] Scheduled Orders Name Type Priority Associated Diagnoses Orde r Schedule Urine culture Clean Catch Urine Microbiology Routine Nephrolithiasis Expected: 11/12/2023, Expires: 11/11/2024 documented as of this encounter Visit Diagnoses Diagnosis Nephrolithiasis Calculus of kidney documented in this encounter Care Teams Treatment Technician Relationship Specialty Start Date End Date Amanda Pino PA [address] [place] [address] PCP - General Internal Medicine 04/28/23 documented as of this encounter
--- OUTSIDE RECORDS SUMMARY | 2024-07-08 01:30 | XMS_ITS | Encounter Summary ---
Author Organization [facility] Address [facility] [place] [address] Care Team Providers Care Planner Chief Name Role Phone Amanda Pino Primary Care Provider [phone] Encounter Details Date Type Department Care Team (Late st Contact Info) Description 05/11/2024 10:00 AM EDT Office Visit Radiation Oncology at [address] [phone] Taya De La Vega PA [facility] DR [place] [address] Malignant neoplasm of prostate (Primary Dx); S/P [...] Vega PA - 05/11/2024 10:00 AM EDT [facility] [place] [address] FOLLOW-UP: Patient: Narcisa Eduardo : 1945 PCP: Amanda Pino PA-C ([facility]) Urologist: Adan Navarrete Jr., MD ([facility]; last seen 09/06/23), also sees Urology at [facility] Radiation Oncologist: Que Evans MD Chief Complaint: Follow-up for 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 On 12/01/19, patient saw Dr. Thomas at the [facility], who discussed various treatment options. Patient [...] follicular lymphoma, [facility] Dr. Kennedy at [facility] [...] on 10/21/23, follows with Urology at the [facility] for stent removal/exchange. No acute changes. Today, [...] raquel. - No acute concerns. Follows with [facility] Urology for LUTS, chronic UTIs, and [...] Next visit (prefers in-person): 6 months Labs ([facility]): PSA Narcisa Eduardo had the opportunity [...] EDT Office Visit Radiation Oncology at [address] [phone] Taya De La Vega PA [facility] DR [place] [address] 11/13/2024 2:00 PM EDT Office Visit Hematology/Oncology at [address] [phone] Kirt Kennedy MD [facility] DR [place] [address] Alem Lazaro APRN [address] [place] [address] DR HEMATOLOGY AND ONCOLOGY [place], [place] [address] Scheduled Orders Name Type Priority Associated Diagnoses Orde r Schedule PSA (Ultrasensitive) Lab Routine Malignant neoplasm of prostate Expected: 10/30/2024 (Approximate), Expires: 05/01/2025 documented as of this encounter Visit Diagnoses Diagnosis Malignant neoplasm of prostate- Primary S/P radiotherapy Convalescence following radiotherapy documented in this encounter Care Teams Planner Chief Relationship Specialty Start Date End Date Amanda Pino PA [address] [place] [address] PCP - General Internal Medicine 04/28/23 documented as of this encounter
--- OUTSIDE RECORDS SUMMARY | 2024-07-08 01:30 | XMS_ITS | Encounter Summary ---
Author Organization [facility] Address [address] [place] [address] Care Team Providers Care Oncology Coordinator Name Role Phone Jan Alfredo Jorge GARDNER Primary Care Provider Encounter Details Date Type Department Care Team (Late st Contact Info) Description 01/08/2021 Lab Requisition [facility] Pathology & Laboratory Medicine - [facility] [address] [place] [address] Son Gama MD [address] [place] [address] [phone] Encounter for other general examination Social History [...] Acinetobacter ursingii(A) VITEK SUSCEPTIBILITY 01/10/2021 10:00 EDT [facility] Comment: Third generation cephalosporins, such [...] MICROBIOLOGY - GENERAL ORDER YESSY Final Result [facility] [address] [place] [address] documented in this encounter Visit Diagnoses Diagnosis Encounter for other general examination documented in this encounter Care Teams Oncology Coordinator Relationship Specialty Start Date End Date Alfredo Montoya DO [address] [place] [address] PCP - General Internal Medicine - Primary Care 05/23/21 documented as of this encounter
--- OUTSIDE RECORDS SUMMARY | 2024-07-08 01:30 | XMS_ITS | Encounter Summary ---
Author Organization [facility] Address [facility] [place] [address] Care Team Providers Care Steam Trap Man Name Role Phone Amanda Pino Primary Care Provider [phone] Encounter Details Date Type Department Care Team [...] EDT Office Visit Radiation Oncology at [address] [phone] Taya De La Vega PA [facility] DR HEMATOLOGY [place] [address] 11/13/2024 2:00 PM EDT Office Visit Hematology/Oncology at [address] [phone] Kirt Kennedy MD [facility] DR [place] [address] Alem Lazaro APRN [address] [place] [address] DR [place] [address] documented as of this encounter Visit Diagnoses Not on filedocumented in this encounter Care Teams Steam Trap Man Relationship Specialty Start Date End Date Amanda Pino PA [address] [place] [address] PCP - General Internal Medicine 04/28/23 documented as of this encounter
--- OUTSIDE RECORDS SUMMARY | 2024-07-08 01:30 | XMS_ITS | Encounter Summary ---
Author Organization [facility] [place] [address] Care Team Providers Care Promotions Executive Producer Name Role Phone Amanda Pino Primary Care Provider [phone] Encounter Details Date Type Department Care Team (Late st Contact Info) Description 11/04/2023 Telephone Urology at [facility] [place] [phone] Perla Vail RN Social History Tobacco Use [...] - 11/04/2023 9:14 AM EDT Copied from [facility] #[id number]. Topic: Specialty Dept CRMs - Medication Issues [...] EDT Office Visit Radiation Oncology at [address] [phone] Taya De La Vega PA [facility] DR [place] [address] 11/13/2024 2:00 PM EDT Office Visit Hematology/Oncology at [address] [phone] Kirt Kennedy MD [facility] DR [place] [address] Alem Lazaro APRN [address] [place] [address] DR HEMATOLOGY AND ONCOLOGY [place], [place] [address] documented as of this encounter Visit Diagnoses Not on filedocumented in this encounter Care Teams Promotions Executive Producer Relationship Specialty Start Date End Date Amanda Pino PA [address] [place] [address] PCP - General Internal Medicine 04/28/23 documented as of this encounter
--- OUTSIDE RECORDS SUMMARY | 2024-07-08 01:30 | XMS_ITS | Encounter Summary ---
Author Organization [facility] Address [facility] [place] [address] Care Team Providers Care Precinct Police Lieutenant Name Role Phone Amanda Pino Primary Care Provider [phone] Encounter Details Date Type Department Care Team [...] EDT Office Visit Radiation Oncology at [address] [phone] Taya De La Vega PA [facility] DR HEMATOLOGY [place] [address] 11/13/2024 2:00 PM EDT Office Visit Hematology/Oncology at [address] [phone] Kirt Kennedy MD [facility] DR [place]AT[place] [address] Alem Lazaro APRN [address] [place] [address] DR [place] [address] documented as of this encounter Visit Diagnoses Not on filedocumented in this encounter Care Teams Precinct Police Lieutenant Relationship Specialty Start Date End Date Amanda Pino PA [address] [place] [address] PCP - General Internal Medicine 04/28/23 documented as of this encounter
--- OUTSIDE RECORDS SUMMARY | 2024-07-08 01:30 | XMS_ITS | Encounter Summary ---
Author Organization [facility] [place] [address] Care Team Providers Care Software Developer Intern Name Role Phone Amanda Pino Primary Care Provider [phone] Encounter Details Date Type Department Care Team (Late st Contact Info) Description 11/15/2023 Telephone Urology at [facility] [address] Lurdes Vila [address]N [facility] [place] [address] Social History Tobacco Use Types Packs/Day Years [...] PM EDT Urine culture order refaxed to [facility] lab. documented in this encounter Plan of Treatment Upcoming Encounters Date Type Department Care Team (Late st Contact Info) Description 11/09/2024 10:30 AM EDT Office Visit Radiation Oncology at [address] [phone] Taya De La Vega PA [facility] DR [place] [address] 11/13/2024 2:00 PM EDT Office Visit Hematology/Oncology at [address] [phone] Kirt Kennedy MD [facility] DR [place] [address] Alem Lazaro APRN [address] [place] [address] DR HEMATOLOGY AND ONCOLOGY [place], [place] [address] documented as of this encounter Visit Diagnoses Not on filedocumented in this encounter Care Teams Software Developer Intern Relationship Specialty Start Date End Date Amanda Pino PA [address] [place] [address] PCP - General Internal Medicine 04/28/23 documented as of this encounter
--- OUTSIDE RECORDS SUMMARY | 2024-07-08 01:30 | XMS_ITS | Encounter Summary ---
Author Organization [facility] Address [facility] [place] [address] Care Team Providers Care Mechanical Product Design Engineer Name Role Phone Amanda Pino Primary Care Provider [phone] Encounter Details Date Type Department Care Team (Late st Contact Info) Description 11/19/2023 [place] [phone] Cortez Arrington MD [facility] [place] [place] [address] Social History Tobacco Use Types Packs/Day Years [...] included. Called patient to discuss Ucx from [facility] on 11/17/23 Pt states they [...] EDT Office Visit Radiation Oncology at [address] [phone] Taya De La Vega PA [facility] DR [place] [address] 11/13/2024 2:00 PM EDT Office Visit Hematology/Oncology at [address] [phone] Kirt Kennedy MD [facility] DR [place] [address] Alem Lazaro APRN [address] [place] [address] DR HEMATOLOGY [place] [address] documented as of this encounter Visit Diagnoses Not on filedocumented in this encounter Care Teams Mechanical Product Design Engineer Relationship Specialty Start Date End Date Amanda Pino PA [address] [place] [address] PCP - General Internal Medicine 04/28/23 documented as of this encounter
--- OUTSIDE RECORDS SUMMARY | 2024-07-08 01:30 | XMS_ITS | Encounter Summary ---
Author Organization [facility] Address [facility] [place] [address] Care Team Providers Care Tracer Clerk Name Role Phone Amanda Pino Primary Care Provider Encounter Details Date Type Department Care Team (Late st Contact Info) Description 11/15/2023 2:30 PM EDT Office Visit Hematology/Oncology at [address] [phone] Kirt Kennedy MD [facility] DR [place] [address] Alem Lazaro APRN [address] [place] [address] DR [place] [address] Follicular lymphoma, unspecified grade, unspecified [...] original note were not included[place] [address] [phone] Narcisa Eduardo is being seen for the evaluation of follicular lymphoma. Assessment & Plan: Narcisa Eduardo is a 78 y.o. male patient with a PMH of an abdominal aortic aneurysm, thoracic aortic aneurysm, hypertension, prior alcohol abuse, tobacco abuse, a stroke in early 2019 and follicular lymphoma who completed EBRT for localized prostate cancer 04/2020 who wishes to followup here in [facility] for his lymphoma rather than at the [facility] given the proximity to his home. He [...] assist sooner should anychanges arise Alem Lazaro, EQUIPMENT VALIDATION SPECIALIST 11/15/2023 Thoracic Oncology [facility] CC: MARISOL Munoz EQUIPMENT VALIDATION SPECIALIST HPI/Interval History/Subjective: Last seen October 2022 Accompanied [...] History/Support Network: Home situation: Lives with in [facility] Employment: Tobacco use: Rolls his own cigarettes. 3/ ppd. X30-40 years Alcohol use: Stopped drinking in 09/2019 after a stroke when he was placed on Plavix Drug use: None Loves gardening but can't do it any more. service: [employer]. [place] Era. Had Agent [place] Exposure. 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 Treated at the [facility] by Dr. Martha Castañeda - PET-CT 11/26/15 [...] (he opted to not receive ADT) at [facility] with Dr. Evans 02/26-04/26/20 97.2 Gy in 44 fractions PMH: 1. AAA - Abdominal aortic aneurysm 2. Thoracic aortic aneurysm without rupture 3. Follicular non-Hodgkin lymphoma, small cleaved cell 4. Tobacco dependence 5. Alcohol dependence 6. Hypertension 7. Family history of prostate cancer 8. Family history of malignant neoplasm of breast 9. Personal History of Exposure to Agent [place] No data to display Patient Active Problem List Diagnosis Date Noted Nephrolithiasis 10/21/2023 Severe protein-calorie malnutrition 02/25/2021 Trauma 02/18/2021 Brain aneurysm 09/09/2020 Intracranial bleed 09/02/2020 Malignant neoplasm of prostate 01/05/2020 Follicular lymphoma 04/03/2015 Allergies Allergen Reactions Contrast [Iodine And Iodide Containing Products] Hives Depakote [Divalproex] Other (See Comments) Thrombocytopenia and spontaneous bleeding Medications 11/15/23 7322 Medication Sig Taking? fluconazole (Diflucan) 200 mg [...] WBC 12.08, H/H 13.2/40.9, plt 242, ANC 10348, Ca 9.3, Glucose 157, BUN 12, Creat [...] cell count normal at 6.0, hemoglobin 14.7 [id number] absolute neutrophil count 4.6 absolute lymphocyte count [...] left inguinal node 03/18/15; taken from the [facility] pathology report - Follicular lymphoma NOTE: Sections [...] EDT Office Visit Radiation Oncology at [address] [phone] Taya De La Vega PA [facility] DR HEMATOLOGY [place] [address] 11/13/2024 2:00 PM EDT Office Visit Hematology/Oncology at [address] [phone] Kirt Kennedy MD [facility] DR [place] [address] Alem Lazaro APRN [address] [place] [address] DR HEMATOLOGY AND ONCOLOGY [place], [place] [address] Scheduled Orders Name Type Priority Associated Diagnoses [...] region documented in this encounter Care Teams Tracer Clerk Relationship Specialty Start Date End Date Amanda Pino PA [address] [place] [address] PCP - General Internal Medicine 04/28/23 documented as of this encounter
--- OUTSIDE RECORDS SUMMARY | 2024-07-08 01:31 | XMS_ITS | Encounter Summary ---
Author Organization [facility] Address [facility] [place] [address] Care Team Providers Care Zipper Machine Operator Name Role Phone Amanda Pino Primary Care Provider [phone] Encounter Details Date Type Department Care Team (Late st Contact Info) Description 10/23/2023 [place] [phone] Theodore Devi MD [facility] [place] [address] Social History Tobacco Use Types Packs/Day Years [...] EDT Office Visit Radiation Oncology at [address] [phone] Taya De La Vega PA [facility] DR [place] [address] 11/13/2024 2:00 PM EDT Office Visit Hematology/Oncology at [address] [phone] Kirt Kennedy MD [facility] DR HEMATOLOGY [place] [address] Alem Lazaro APRN [address] [place] [address] DR HEMATOLOGY AND ONCOLOGY [place], [place] [address] documented as of this encounter Visit Diagnoses Not on filedocumented in this encounter Care Teams Zipper Machine Operator Relationship Specialty Start Date End Date Amanda Pino PA [address] [place] [address] PCP - General Internal Medicine 04/28/23 documented as of this encounter
--- OUTSIDE RECORDS SUMMARY | 2024-07-08 01:31 | XMS_ITS | Encounter Summary ---
Author Organization Formerly [facility], [facility]–1983 Address [facility] [place] [address] Care Team Providers Care Lamination Inspector Name Role Phone Amanda Pino Primary Care Provider [phone] Encounter Details Date Type Department Care Team [...] EDT Office Visit Radiation Oncology at [address] [phone] Taya De La Vega PA [facility] DR [place] [address] 11/13/2024 2:00 PM EDT Office Visit Hematology/Oncology at [address] [phone] Kirt Kennedy MD [facility] DR [place] [address] Alem Lazaro APRN [address] [place] [address] DR [place] [address] documented as of this encounter Visit Diagnoses Not on filedocumented in this encounter Care Teams Lamination Inspector Relationship Specialty Start Date End Date Amanda Pino PA [address] [place] [address] PCP - General Internal Medicine 04/28/23 documented as of this encounter
--- OUTSIDE RECORDS SUMMARY | 2024-07-08 01:31 | XMS_ITS | Encounter Summary ---
Author Organization [facility] [place] [address] Care Team Providers Care Grid Caster Name Role Phone Amanda Pino Primary Care Provider [phone] Encounter Details Date Type Department Care Team (Late st Contact Info) Description 10/20/2023 Telephone Urology at [facility] [place] [phone] Perla Vail, RN Social History Tobacco Use [...] care provider. Will confirm with urology resident simulation software engineer that it is ok to proceed with surgery. documented in this encounter Plan of Treatment Upcoming Encounters Date Type Department Care Team (Late st Contact Info) Description 11/09/2024 10:30 AM EDT Office Visit Radiation Oncology at [address] [phone] Taya De La Vega PA [facility] DR [place] [address] 11/13/2024 2:00 PM EDT Office Visit Hematology/Oncology at [address] [phone] Kirt Kennedy MD [facility] DR [place] [address] Alem Lazaro APRN [address] [place] [address] DR HEMATOLOGY AND ONCOLOGY [place], [place] [address] documented as of this encounter Visit Diagnoses Not on filedocumented in this encounter Care Teams Grid Caster Relationship Specialty Start Date End Date Amanda Pino PA [address] [place] [address] PCP - General Internal Medicine 04/28/23 documented as of this encounter
--- OUTSIDE RECORDS SUMMARY | 2024-07-08 01:31 | XMS_ITS | Encounter Summary ---
Author Organization [facility] Address [facility] [place] [address] Care Team Providers Care Grain Shoveler Name Role Phone Amanda Pino Primary Care Provider [phone] Encounter Details Date Type Department Care Team (Late st Contact Info) Description 07/27/2023 Orders [place] [address] Maycol Caruso MD [facility] [place] [address] Social History Tobacco Use Types Packs/Day Years [...] EDT Office Visit Radiation Oncology at [address] [phone] Taya De La Vega PA [facility] [place] [address] 11/13/2024 2:00 PM EDT Office Visit Hematology/Oncology at [address] [phone] Kirt Kennedy MD [facility] [place] [address] Alem Lazaro APRN [address] [place] [address] DR HEMATOLOGY AND ONCOLOGY [place], [place] [address] documented as of this encounter Visit Diagnoses Not on filedocumented in this encounter Care Teams Grain Shoveler Relationship Specialty Start Date End Date Amanda Pino PA [address] [place] [address] PCP - General Internal Medicine 04/28/23 documented as of this encounter
--- OUTSIDE RECORDS SUMMARY | 2024-07-08 01:31 | XMS_ITS | Encounter Summary ---
Author Organization Formerly [facility], [facility] Address [facility] [place] [address] Care Team Providers Care Vehicle Return Associate Name Role Phone Amanda Pino Primary Care Provider [phone] Encounter Details Date Type Department Care Team (Late Contact Info) Description 10/27/2023 [place] [address] Cortez Arrington MD [facility] [place] [address] Social History Tobacco Use Types Packs/Day Years [...] EDT Office Visit Radiation Oncology at [address] [phone] Taya De La Vega PA [facility] DR HEMATOLOGY [place] [address] 11/13/2024 2:00 PM EDT Office Visit Hematology/Oncology at [address] [phone] Kirt Kennedy MD [facility] DR HEMATOLOGY [place] [address] Alem Lazaro APRN [address] [place] [address] DR HEMATOLOGY AND ONCOLOGY [place], [place] [id number] documented as of this encounter Visit Diagnoses Not on filedocumented in this encounter Care Teams Vehicle Return Associate Relationship Specialty Start Date End Date Amanda Pino PA [address] [place] [address] PCP - General Internal Medicine 04/28/23 documented as of this encounter
--- OUTSIDE RECORDS SUMMARY | 2024-07-08 01:31 | XMS_ITS | Encounter Summary ---
Author Organization [facility] [place] [address] Care Team Providers Care Safety Sealer Name Role Phone Amanda Pino Primary Care Provider [phone] Encounter Details Date Type Department Care Team (Late st Contact Info) Description 10/18/2023 [place] [phone] Perla Vail, RN Social History Tobacco Use [...] culture results from 10/15/23. Call placed to [facility], urine culture results requested to be faxed to [phone]. documented in this encounter Miscellaneous Notes * Telephone Encounter - Perla Vail RN - 10/18/2023 10:12 AM EST Copied from [facility] #[id number]. Topic: Specialty Dept CRMs - Generic Call >> Oct 18, 2023 8:22 AM Charlotte Muñiz wrote: Specialist: Landon Relationship (if other than patient-full name): Kinue, spouse Reason for Call: Spouse Kinue is calling back to see if results are in from urine test, test was done at [facility] on 10/15/2023 documented in this encounter Plan of Treatment Upcoming Encounters Date Type Department Care Team (Late st Contact Info) Description 11/09/2024 10:30 AM EDT Office Visit Radiation Oncology at [address] [phone] Taya De La Vega PA [facility] DR HEMATOLOGY [place] [address] 11/13/2024 2:00 PM EDT Office Visit Hematology/Oncology at [address] [phone] Kirt Kennedy MD [facility] DR HEMATOLOGY [place] [address] Alem Lazaro APRN [address] [place] [address] DR HEMATOLOGY AND ONCOLOGY [place], [place] [address] documented as of this encounter Visit Diagnoses Not on filedocumented in this encounter Care Teams Safety Sealer Relationship Specialty Start Date End Date Amanda Pino PA [address] [place] [address] PCP - General Internal Medicine 04/28/23 documented as of this encounter
--- OUTSIDE RECORDS SUMMARY | 2024-07-08 01:31 | XMS_ITS | Encounter Summary ---
Author Organization [facility] [place] [address] Care Team Providers Care Neck Band Maker Name Role Phone Amanda Pino Primary Care Provider [phone] Reason for Visit * Auth/Cert (Routine) Specialty Diagnoses / Procedures Referred By Rogers t Referred To Contact Diagnoses Calculus of kidney >2.5cm right lower pole renal stone Procedures PRO PERQ NL/PL LITHOTRIPSY COMPLEX >2 CM FIBERGLASS BOAT MAKER LOCATIONS PRO PLMT NEPHROSTOMY CATH PRQ NEW [...] ORGAN (WRVU 0.59) Adan Navarrete Jr., MD [facility] [address] [facility] Referral ID Status Reason Start Date Expiration Date Visits Re quested Visits Authorized [id number] 1 1 Encounter Details Date Type Department Care Team (Late st Contact Info) Description 08/05/2023 11:58 AM EST Anesthesia [place] [phone] Terence Ferreira MD [facility] [place] [address] Sandra Chen CRNA [facility] [place] [address] Anesthesia Record Procedure Summary Procedure Name Responsible [...] by Ashwini Chaudhary RN PIV 08/05/23; 1043; bakw-nwe-jnwvjo catheter system; 20 gauge; cephalic vein (lateral [...] Procedure Summary Date: 08/05/23 Room / Location: [address] MAIN OR Anesthesia Start: 1158 Anesthesia [...] All Anesthesia Providers: Anesthesiologist: Terence Ferreira MD PRISON GUARD: Sandra Chen CRNA Vitals Value Taken Time BP 125/76 08/05/23 1545 Temp 36.7 ??C (98.1 ??F) 08/05/23 1541 Pulse Resp 16 08/05/23 1545 SpO2 100 % 08/05/23 1600 Pain Level 0 08/05/23 1545 Vitals shown include unfiled device data. Patient Location: PACU/[facility] Level of Consciousness: Conscious but Sleepy Pain [...] ??? COLONOSCOPY 2011 date is approximate. at [facility] Dr Ko ??? PROSTATE BIOPSY [...] risks discussed with patient. Plan discussed with PRISON GUARD and attending. Anesthesia Screening documented in this encounter Plan of Treatment Upcoming Encounters Date Type Department Care Team (Late st Contact Info) Description 11/09/2024 10:30 AM EDT Office Visit Radiation Oncology at [address] [phone] Taya De La Vega PA [facility] DR [place] [address] 11/13/2024 2:00 PM EDT Office Visit Hematology/Oncology at [address] [phone] Kirt Kennedy MD [facility] DR [place] [address] Alem Lazaro, [address] [place] [address] documented as of this encounter Visit Diagnoses Not on filedocumented in this encounter Administered Medications Inactive Administered Medications - up to 3 most recent administrations Medication Order MAR Action Action Date Dose Rate Site ceFAZolin (Ancef) 2 g vial attach to sodium chloride 0.9% 100 mL Mini-Bag Plus 2 g, Intravenous, COREMAKER EXPERIMENTAL TO O.R., 1 dose, On Brisa 08/05/23 [...] 0.9% 100 mL infusion 200 mg, Intravenous, COREMAKER EXPERIMENTAL TO O.R., 1 dose, On Brisa 08/05/23 [...] mg documented in this encounter Care Teams Neck Band Maker Relationship Specialty Start Date End Date Amanda Pino PA [address] [place] [address] PCP - General Internal Medicine 04/28/23 documented as of this encounter
--- OUTSIDE RECORDS SUMMARY | 2024-07-08 01:31 | XMS_ITS | Encounter Summary ---
Author Organization [facility] [place] [address] Care Team Providers Care Customer Engineer Name Role Phone Amanda Pino Primary Care Provider [phone] Reason for Visit * Auth/Cert (Routine) Specialty Diagnoses / Procedures Referred By Rogers t Referred To Contact Diagnoses Calculus of kidney >2.5cm right lower pole renal stone Procedures PRO PERQ NL/PL LITHOTRIPSY COMPLEX >2 CM FORMING MACHINE TENDER LOCATIONS PRO PLMT NEPHROSTOMY CATH PRQ NEW [...] (WRVU 0.59) Jonn Gustafson Jr., MD [facility] [place] [address] [facility] Referral ID Status Reason Start Date Expiration Date Visits Re quested Visits Authorized [id number] 1 1 Encounter Details Date Type Department Care Team (Latest Contact Info) Description 08/05/2023 9:41 AM EST - 08/05/2023 5:15 PM [facility] Hospital Encounter Same [place] [address] Jonn Gustafson Jr., MD [facility] [place] [address] Discharge Disposition: Home Social History Tobacco Use [...] De La Vega PA Radiation Oncology at [facility] Arrive at: [facility] door at [address] [phone] 11/15/2023 2:30 PM Alem Lazaro APRN; Kirt Kennedy MD Hematology/Oncology at [facility] Arrive at: [facility] door at end of [address] [phone] You will have a telehealth visit in [...] approximate. at [facility] Dr Ko PROSTATE BIOPSY 11/23/2019 ALLERGIES Allergies [...] Operative Note Patient Name: Narcisa Eduardo : [id number] MR#: [id number] Case Date: 08/05/2023 Surgeon: Surgeon(s) and Role: [...] Abreu MD - 08/05/2023 12:40 PM EST [facility] [place] Patient Name: Narcisa Eduardo : [id number] MR#: [id number] Case Date: 08/05/2023 Surgeon: Surgeon(s) and Role: [...] EDT Office Visit Radiation Oncology at [address] [phone] Taya De La Vega PA [facility] [place] [address] 11/13/2024 2:00 PM EDT Office Visit Hematology/Oncology at [address] [phone] Kirt Kennedy MD [facility] DR HEMATOLOGY [place] [address] Alem Lazaro APRN [address] [place] [address] DR HEMATOLOGY AND ONCOLOGY [place], [place] [id number] documented as of this encounter Procedures Procedure Name Priority Date/Time Associated Diagnosis Comments XR FLUORO NO RAD <1HR - OR USE Routine 08/05/2023 3:56 PM EST KIDNEY STONE ANALYSIS Routine 08/05/2023 1:47 PM EST URINE CULTURE Routine 08/05/2023 12:45 PM EST Cystoscopy, Insert Ureteral Stent ([id number]) Yes 08/05/2023 12:00 PM EST >2.5cm right lower pole renal stone Cysto W Ureteroscopy &/Or Pyeloscopy, Dx ([id number]) Yes 08/05/2023 12:00 PM EST >2.5cm right lower pole renal stone Cysto/Ureteroscopy W/Lithotripsy Inc Indwelling Stent Insertion ([id number]) Yes 08/05/2023 12:00 PM EST >2.5cm right lower pole renal stone MODIFIER HOLMIUM LASER Yes 08/05/2023 12:00 PM EST >2.5cm right lower pole renal stone TYPE AND SCREEN VALIDITY STAT 08/05/2023 10:11 AM EST ABORH RECHECK STATUS STAT 08/05/2023 10:11 AM EST TYPE AND SCREEN, SDP (FUTURE SURGERY, [facility] [place] ONLY) [...] its performance characteristics ?determined by [facility] in a manner consistent with CLIA ?requirements. This test has not been cleared or approved by ?the U.S. Food and Drug Administration. ?Test Performed by: ?[facility] ?[address] [place] [address] ?Focus Puller: Russel Clemons M.D. Ph.D.; CLIA# [id number] [facility] Calculus 08/05/2023 1:47 PM EST 08/06/2023 4:59 PM EST Narrative Resulting Agency Comment Spec In Lab Jonn Gustafson Jr., MD LAB SEND OUT ORDER YESSY Performing Organization Address [facility]/[place] Co de Phone Number [facility] [place] [address] * (ABNORMAL) Urine culture Cystoscopic Urine (08/05/2023 12:45 PM EST) Urine Culture 1,000-9,000 cfu/ml Keysha parapsilosis One colony of Gram Negative organisms (A) [facility] Organism Keysha parapsilosis(A) [facility] Cystoscopic Urine 08/05/2023 12:45 PM EST 08/05/2023 2:24 PM EST Comment:Bladder Urine for Cu lture and Analysis Narrative Resulting Agency Comment Spec In Lab Jonn Gustafson Jr., MD MICROBIOLOGY - GEN ERAL ORDERABLES Performing Organization Address [facility]/[place] Co de Phone Number [facility] [place] [address] * Type and Screen Validity (08/05/2023 10:11 AM EST) T&S only valid at [facility] LABORATORY Comment:This Type and Screen result is only valid at the [facility] Blood 08/05/2023 10:1 1 AM EST 08/05/2023 10:40 AM EST Narrative Resulting Agency Comment Spec In Lab Jonn Gustafson Jr., MD BLOOD BANK LAB ORD ERABLES Performing Organization Address City/[facility]/ZIP Co de Phone Number [facility] [place] [address] * ABORH Recheck Status (08/05/2023 10:11 AM EST) ABOR[facility] Type Recheck Completed [facility] Blood 08/05/2023 10:1 1 AM EST 08/05/2023 10:40 AM EST Narrative Resulting Agency Comment Spec In Lab Jonn Gustafson Jr., MD BLOOD BANK LAB ORD ERABLES Performing Organization Address [facility]/[place] Co de Phone Number [facility] [place] [address] * Antibody screen (08/05/2023 10:11 AM EST) Ab Screen Interp Negative [facility] Expires at 2359 on: 08/08/2023 [facility] Blood 08/05/2023 10:1 1 AM EST 08/05/2023 10:40 AM EST Narrative Resulting Agency Comment Spec In Lab Jonn Gustafson Jr., MD BLOOD BANK LAB ORD ERABLES Performing Organization Address City/[facility]/ZIP Co de Phone Number [facility] [place] [address] * ABO/Rh Typing (08/05/2023 10:11 AM EST) ABORH Type A Pos [facility] Blood 08/05/2023 10:1 1 AM EST 08/05/2023 10:40 AM EST Narrative Resulting Agency Comment Spec In Lab Jonn Gustafson Jr., MD BLOOD BANK LAB ORD ERABLES Performing Organization Address City/[facility]/ZIP Co de Phone Number [facility] [place] [address] documented in this encounter Visit Diagnoses Not [...] mL Mini-Bag Plus (COMPLETED) 2 g, Intravenous, HOOP PUNCH AND COILER OPERATOR TO O.R., 1 dose, On Brisa 08/05/23 at 1045, Administer over 30 Minutes, Day of Surgery (Day of Procedure), Indication for (Active or Suspected): Prophylaxis 1211 (New Bag - Prov ider: Sandra Chen CRNA) fluconazole (Diflucan) 200 mg in sodium chloride 0.9% 100 mL infusion 200 mg, Intravenous, HOOP PUNCH AND COILER OPERATOR TO O.R., 1 dose, On Wed08/04/23 at 1830, Administer over 60 Minutes, Indication for (Active or Suspected): Prophylaxis, Restricted Antibiotic: Please indicate the most appropriate choice: Pre-approved indication (state the indication in comments field) 1830 (Due) fluconazole (Diflucan) 200 mg in sodium chloride 0.9% 100 mL infusion (COMPLETED) 200 mg, Intravenous, HOOP PUNCH AND COILER OPERATOR TO O.R., 1 dose, On Brisa 08/05/23 [...] reactions.) documented in this encounter Care Teams Customer Engineer Relationship Specialty Start Date End Date Amanda Pino PA [address] [place] [address] PCP - General Internal Medicine 04/28/23 documented as of this encounter
--- OUTSIDE RECORDS SUMMARY | 2024-07-08 01:31 | XMS_ITS | Encounter Summary ---
Author Organization [place] [address] Care Team Providers Care Special Education Educational Assistant Name Role Phone Amanda Pino Primary Care Provider [phone] Encounter Details Date Type Department Care Team (Late Contact Info) Description 11/02/2023 Orders Only Hematology/Oncology at [address] [phone] Alem Lazaro APRN [address] [place] [address] DR HEMATOLOGY [place] [address] Follicular lymphoma, unspecified grade, unspecified [...] EDT Office Visit Radiation Oncology at [address] [phone] Taya De La Vega PA [facility] DR [place] [address] 11/13/2024 2:00 PM EDT Office Visit Hematology/Oncology at [address] [phone] Kirt Kennedy MD [facility] DR [place] [address] Alem Lazaro APRN [address] [place] [address] DR HEMATOLOGY AND ONCOLOGY [place], [place] [address] documented as of this encounter Visit Diagnoses Diagnosis Follicular lymphoma, unspecified grade, unspecified body region documented in this encounter Care Teams Special Education Educational Assistant Relationship Specialty Start Date End Date Amanda Pino PA [address] [place] [address] PCP - General Internal Medicine 04/28/23 documented as of this encounter
--- OUTSIDE RECORDS SUMMARY | 2024-07-08 01:31 | XMS_ITS | Encounter Summary ---
Author Organization [facility] Address [facility] [place] [address] Care Team Providers Care Rehabilitation Therapy Aide Name Role Phone Amanda Pino Primary Care Provider [phone] Encounter Details Date Type Department Care Team (Late Contact Info) Description 05/06/2023 Ancillary Procedure Radiology Library at [facility] [place] [place] [address] Adan Navarrete Jr., MD [facility] [place] [address] Social History Tobacco Use Types Packs/Day Years [...] EDT Office Visit Radiation Oncology at [address] [phone] Taya De La Vega PA [facility] HEMATOLOGY [place] [address] 11/13/2024 2:00 PM EDT Office Visit Hematology/Oncology at [address] [phone] Kirt Kennedy MD [facility] DR HEMATOLOGY [place] [address] Alem Lazaro, ENTOMOLOGY TEACHER [address] [place] [address] DR HEMATOLOGY AND ONCOLOGY [place], [place] [address] documented as of this encounter Procedures Procedure Name Priority Date/Time Associated Diagnosis Comments FILM LIBRARY STORAGE ONLY CT CHEST ABDOMEN PELVIS Routine 05/06/2023 12:00 AM EDT documented in this encounter Results * Film Library- Storage Only CT Chest Abdomen Pelvis (05/06/2023 12:00 AM EDT) Narrative [facility] - 09/13/2023 6:13 PM EST This exam is auto-finalizing. It's purpose is for storage only. Adan Navarrete Jr., MD IMG FILM LIBRARY O RDERABLES [place], [place] documented in this encounter Visit Diagnoses Not on filedocumented in this encounter Care Teams Rehabilitation Therapy Aide Relationship Specialty Start Date End Date Amanda Pino PA [address] [place] [address] PCP - General Internal Medicine 04/28/23 documented as of this encounter
--- OUTSIDE RECORDS SUMMARY | 2024-07-08 01:31 | XMS_ITS | Encounter Summary ---
Author Organization [facility] [place] [address] Care Team Providers Care Grooming Assistant Name Role Phone Amanda Pino Primary Care Provider [phone] Reason for Visit * Auth/Cert (Routine) Specialty Diagnoses / Procedures Referred By Rogers t Referred To Contact Diagnoses Calculus of kidney >2.5cm right lower pole renal stone Procedures PRO PERQ NL/PL LITHOTRIPSY COMPLEX >2 CM PRICING DIRECTOR LOCATIONS PRO PLMT NEPHROSTOMY CATH PRQ [...] ORGAN (WRVU 0.59) Jonn Gustafson Jr., MD [facility] [place] [address] RUST Referral ID Status Reason Start Date Expiration Date Visits Re quested Visits Authorized [id number] 1 1 Encounter Details Date Type Department Care Team (Late st Contact Info) Description 08/05/2023 11:17 AM EST - 08/05/2023 4:02 PM EST Surgery Main Operating [place] [address] Jonn Gustafson Jr., MD [facility] [place] [address] CYSTOURETEROSCOPY,DIAG NOSTIC,W/ LITHOTRIPSY INC. INSERTION OF INDWELLING [...] De La Vega PA Radiation Oncology at [facility] at end of [facility] [phone] 11/15/2023 2:30 PM Alem Lazaro APRN; Kirt Kennedy MD Hematology/Oncology at [facility] at end of hallway [phone] You will have a telehealth visit in [...] 2011 date is approximate. at [facility] Dr Ko PROSTATE BIOPSY 11/23/2019 ALLERGIES Allergies [...] Operative Note Patient Name: Narcisa Eduardo : [id number] MR#: [id number] Case Date: 08/05/2023 Surgeon: Surgeon(s) and Role: [...] Abreu MD - 08/05/2023 12:40 PM EST [facility] Operative Note Patient Name: Narcisa Eduardo : [id number] MR#: [id number] Case Date: 08/05/2023 Surgeon: Surgeon(s) and Role: * oJnn Gustafson Jr., MD - Primary * Jasper [...] EDT Office Visit Radiation Oncology at [address] [phone] Taya De La Vega PA [facility] DR [place] [address] 11/13/2024 2:00 PM EDT Office Visit Hematology/Oncology at [address] [place] [phone] Kirt Kennedy MD [facility] DR [place] [address] Alem Lazaro, CHOLO [address] [place] [address] DR HEMATOLOGY AND ONCOLOGY [place], [place] [address] documented as of this encounter Procedures Procedure Name Priority Date/Time Associated Diagnosis Comments XR FLUORO NO RAD <1HR - OR USE Routine 08/05/2023 3:56 PM EST KIDNEY STONE ANALYSIS Routine 08/05/2023 1:47 PM EST URINE CULTURE Routine 08/05/2023 12:45 PM EST Cystoscopy, Insert Ureteral Stent ([id number]) Yes 08/05/2023 12:00 PM EST >2.5cm right lower pole renal stone Cysto W Ureteroscopy &/Or Pyeloscopy, Dx ([id number]) Yes 08/05/2023 12:00 PM EST >2.5cm right lower pole renal stone Cysto/Ureteroscopy W/Lithotripsy Inc Indwelling Stent Insertion ([id number]) Yes 08/05/2023 12:00 PM EST >2.5cm right lower pole renal stone MODIFIER HOLMIUM LASER Yes 08/05/2023 12:00 PM EST >2.5cm right lower pole renal stone TYPE AND SCREEN VALIDITY STAT 08/05/2023 10:11 AM EST ABORH RECHECK STATUS STAT 08/05/2023 10:11 AM EST TYPE AND SCREEN, SDP (FUTURE SURGERY, [facility] SAME DAY PROGRAM ONLY) STAT 08/05/2023 10:11 [...] developed and its performance characteristics ?determined by [facility] in a manner consistent with CLIA ?requirements. This test has not been cleared or approved by ?the U.S. Food and Drug Administration. ?Test Performed by: ?[facility] ?[address] [place] [address] ?Tobacco Wrapping Machine Tender: Russel Clemons M.D. Ph.D.; CLIA# [id number] [facility] Calculus 08/05/2023 1:47 PM EST 08/06/2023 4:59 PM EST Narrative Resulting Agency Comment Spec In Lab Jonn Gustafson Jr., MD LAB SEND OUT ORDER YESSY Performing Organization Address [facility] Co de Phone Number [facility] [place] [address] * (ABNORMAL) Urine culture Cystoscopic Urine (08/05/2023 12:45 PM EST) [facility] Urine Culture 1,000-9,000 cfu/ml Keysha parapsilosis One colony of Gram Negative organisms (A) [facility] Organism Keysha parapsilosis(A) [facility] Cystoscopic Urine 08/05/2023 12:45 PM EST 08/05/2023 2:24 PM EST Comment:Bladder Urine for Cu lture and Analysis Narrative Resulting Agency Comment Spec In Lab Jonn Gustafson Jr., MD MICROBIOLOGY - GEN ERAL ORDERABLES Performing Organization Address [facility] [place] [address] * Type and Screen Validity (08/05/2023 10:11 AM EST) Pathologist [facility] T&S only valid at [facility] LABORATORY Comment:This Type and Screen result is only valid at the [facility] Blood 08/05/2023 10:1 1 AM EST 08/05/2023 10:40 AM EST Narrative Resulting Agency Comment Spec In Lab Jonn Gustafson Jr., MD BLOOD BANK LAB ORD ERABLES Performing Organization Address City/[facility]/ZIP Co de Phone Number [facility] [place] [address] * ABORH Recheck Status (08/05/2023 10:11 AM EST) ABORH Type Recheck Completed [facility] Blood 08/05/2023 10:1 1 AM EST 08/05/2023 10:40 AM EST Narrative Resulting Agency Comment Spec In Lab Jonn Gustafson Jr., MD BLOOD BANK LAB ORD ERABLES Performing Organization Address [facility] Co de Phone Number [facility] [place] [address] * Antibody screen (08/05/2023 10:11 AM EST) Ab Screen Interp Negative [facility] Expires at 2359 on: 08/08/2023 [facility] Blood 08/05/2023 10:1 1 AM EST 08/05/2023 10:40 AM EST Narrative Resulting Agency Comment Spec In Lab Jonn Gustafson Jr., MD BLOOD BANK LAB ORD ERABLES Performing Organization Address City/[facility] Co de Phone Number [facility] [place] [address] * ABO/Rh Typing (08/05/2023 10:11 AM EST) ABORH Type A Pos [facility] Blood 08/05/2023 10:1 1 AM EST 08/05/2023 10:40 AM EST Narrative Resulting Agency Comment Spec In Lab Jonn Gustafson Jr., MD BLOOD BANK LAB ORD ERABLES [facility] [place] [address] documented in this encounter Visit Diagnoses Not [...] mL Mini-Bag Plus (COMPLETED) 2 g, Intravenous, BB SHOT PACKER TO O.R., 1 dose, On Brisa 08/05/23 at 1045, Administer over 30 Minutes, Day of Surgery (Day of Procedure), Indication for (Active or Suspected): Prophylaxis 1211 (New Bag - Prov ider: Sandra Chen CRNA) fluconazole (Diflucan) 200 mg in sodium chloride 0.9% 100 mL infusion 200 mg, Intravenous, BB SHOT PACKER TO O.R., 1 dose, On Wed08/04/23 at 1830, Administer over 60 Minutes, Indication for (Active or Suspected): Prophylaxis, Restricted Antibiotic: Please indicate the most appropriate choice: Pre-approved indication (state the indication in comments field) 1830 (Due) fluconazole (Diflucan) 200 mg in sodium chloride 0.9% 100 mL infusion (COMPLETED) 200 mg, Intravenous, BB SHOT PACKER TO O.R., 1 dose, On Brisa 08/05/23 [...] reactions.) documented in this encounter Care Teams Grooming Assistant Relationship Specialty Start Date End Date Amanda Pino PA [address] [place] [address] PCP - General Internal Medicine 04/28/23 documented as of this encounter
--- OUTSIDE RECORDS SUMMARY | 2024-07-08 01:31 | XMS_ITS | Encounter Summary ---
Author Organization [facility] Address [facility] [place] [address] Care Team Providers Care Studio Data Analyst Name Role Phone Amanda Pino Primary Care Provider [phone] Reason for Referral * Diagnostic Test (Routine) - Closed Specialty Diagnoses / Procedures Referred By Contac t Referred To Contact Radiology Diagnoses Nephrolithiasis Procedures CT Abdomen & Pelvis wo Contrast Aadn Navarrete Jr., MD [facility] [place] [address] [facility] [place] [address] Referral ID Status Reason Start Date Expiration Date V isits Requested Visits Authorized [id number] Closed Specialty Service Requested 09/06/2023 03/06/2025 1 1 Reason for Visit * Diagnostic Test (Routine) - Closed Specialty Diagnoses / Procedures Referred By Contac t Referred To Contact Radiology Diagnoses Nephrolithiasis Procedures CT Abdomen & Pelvis wo Contrast Adan Navarrete Jr., MD [facility] [place] [address] [facility] [place] [address] Referral ID Status Reason Start Date Expiration Date V isits Requested Visits Authorized [id number] Closed Specialty Service Requested 09/06/2023 03/06/2025 1 1 Encounter Details Date Type Department Care Team (Latest Contact Info) Description 09/06/2023 12:03 PM EST - 09/06/2023 11:59 PM EST Hospital [place] [phone] Adan Navarrete Jr., MD [facility] [place] [address] Nephrolithiasis Discharge Disposition: Home Social History Tobacco Use Types Packs/Day Years Used Date Smoking Tobacco: Every Day Cigarettes 1 60.9 Started: 1963 Smokeless Tobacco: Never Comments:rolls on cigarettes smokes less then 20 a day Alcohol Use Standard Drinks/Week Comments Not Currently 0 (1 standard drink = 0.6 oz pure alcohol) 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 [facility] Inpatient Questions Answer Date Recorded Does Anyone [...] EDT Office Visit Radiation Oncology at [address] [phone] Taya De La Vega PA [facility] DR HEMATOLOGY [place] [address] 11/13/2024 2:00 PM EDT Office Visit Hematology/Oncology at [address] [phone] Kirt Kennedy MD [facility] DR [place]EMAT[place] [address] Alem Lazaro APRN [address] [place] [address] DR HEMATOLOGY [place] [address] documented as of this encounter [...] questions please contact the health acute care physician that requested your imaging first. ? Narrative [...] kidney documented in this encounter Care Teams Studio Data Analyst Relationship Specialty Start Date End Date Amanda Pino PA [address] [place] [address] PCP - General Internal Medicine 04/28/23 documented as of this encounter
--- OUTSIDE RECORDS SUMMARY | 2024-07-08 01:31 | XMS_ITS | Encounter Summary ---
Author Organization [facility] Address [facility] [place] [address] Care Team Providers Care Solution Make Up Operator Name Role Phone Amanda Pino Primary Care Provider [phone] Encounter Details Date Type Department Care Team (Late st Contact Info) Description 06/17/2023 11:15 AM EDT Office Visit Radiation Oncology at [address] [phone] Taya De La Vega PA [facility] DR [place]Y [place] [address] Malignant neoplasm of prostate (Primary Dx); S/P [...] Vega PA - 06/17/2023 11:15 AM EDT [facility] [place] [address] FOLLOW-UP: Patient: Narcisa Eduardo : 1945 PCP: [facility] Primary Care Urologist: Adan Navarrete Jr., MD ([facility]; last seen 05/24/23), also sees Urology at [facility] Radiation Oncologist: Que Evans MD Chief Complaint: [...] nodules, per patient. TRUS biopsyon 11/23/19 showed [place] 4+3 x 1 on the left, [place] 3+4 x 3 bilaterally, and [place] 3+3 x 2 bilaterally. On 12/01/19, patient saw Dr. Thomas at the [facility], who discussed various treatment options. Patient [...] a history. He follows with [facility]rology at [facility] (Dr. Wendie Garcia). He also has a history of follicular lymphoma, managed by Dr. Kennedy at [facility]. [facility] [...] 6 months from 04/2023 labs (10/2023) Labs ([facility]): TIANA Eduardo had the opportunity to [...] EDT Office Visit Radiation Oncology at [address] [phone] Taya De La Vega PA [facility] DR HEMATOLOGY [place] [address] 11/13/2024 2:00 PM EDT Office Visit Hematology/Oncology at [address] [phone] Kirt Kennedy MD [facility] DR HEMATOLOGY [place] [address] Alem Lazaro APRN [address] [place] [address] DR HEMATOLOGY AND ONCOLOGY [place], [place] [id number] documented as of this encounter Procedures Procedure [...] radiotherapy documented in this encounter Care Teams Solution Make Up Operator Relationship Specialty Start Date End Date Amanda Pino PA [address] [place] [address] PCP - General Internal Medicine 04/28/23 documented as of this encounter
--- OUTSIDE RECORDS SUMMARY | 2024-07-08 01:31 | XMS_ITS | Encounter Summary ---
Author Organization [facility] Address [facility] [place] [address] Care Team Providers Care Factory Hand Name Role Phone Amanda Pino Primary Care Provider [phone] Encounter Details Date Type Department Care Team (Late Contact Info) Description 09/18/2023 Orders Only Hematology/Oncology at [address] [phone] Kirt Kennedy MD [facility] DR [place] [address] Follicular lymphoma, unspecified grade, unspecified body region [...] EDT Office Visit Radiation Oncology at [address] [phone] Taya De La Vega PA [facility] [place] [address] 11/13/2024 2:00 PM EDT Office Visit Hematology/Oncology at [address] [phone] Kirt Kennedy MD [facility] [place] [address] Alem Lazaro APRN [address] [place] [address] [place] [address] documented as of this encounter Visit Diagnoses Diagnosis Follicular lymphoma, unspecified grade, unspecified body region documented in this encounter Care Teams Factory Hand Relationship Specialty Start Date End Date Amanda Pino PA [address] [place] [address] PCP - General Internal Medicine 04/28/23 documented as of this encounter
--- OUTSIDE RECORDS SUMMARY | 2024-07-08 01:31 | XMS_ITS | Encounter Summary ---
Author Organization Formerly [facility] [place] [address] Care Team Providers Care Paid Search Marketing Strategist Name Role Phone Amanda Pino Primary Care Provider [phone] Reason for Visit * Auth/Cert (Routine) Specialty Diagnoses / Procedures Referred By Contaryan t Referred To Contact Diagnoses RIGHT STONE Procedures PRO PERQ NL/PL LITHOTRIPSY COMPLEX >2 CM CORPORATE SERVICES MANAGER LOCATIONS PRO PLMT NEPHROSTOMY CATH PRQ NEW [...] MODIFIER HOLMIUM LASER Jonn Navarrete Jr., MD [facility] [place] [address] [facility] Referral ID Status Reason Start Date Expiration Date Visits Re quested Visits Authorized [id number] 1 1 Encounter Details Date Type Department Care Team (Late st Contact Info) Description 10/21/2023 10:46 AM EST - 10/21/2023 3:48 PM EST Surgery Main Operating Room [place] [address] Jonn Navarrete Jr., MD [facility] [place] [address] NEPHROLITHOTOMY, (PCNL) PERCUTANEOUS, COMPLEX (EG STONE > [...] Narcisa Eduardo Patient Age: 78 y.o. 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 No recent changes to health status. Left URS in 08/14 showed innumerable small stones and an impassable right ureter. CT showed persistent left stones. Prior Cx with rivera - Fluc On keflex for GNRs - Ancef Hospital Course: Patient was admitted to [facility] via the same day surgery program and [...] who have questions please contact the health customer care associate that requested your imaging first. Pending Studies [...] may be used if needed and are iocx-amk-wkjkuls medications available at most local pharmacies. Prunes [...] will call you to schedule. Please call [phone] (clinic number for appointments) to confirm date [...] De La Vega PA Radiation Oncology at [facility] Arrive at: [facility] door at end of hallway [phone] 11/15/2023 2:30 PM Alem Lazaro APRN; Kirt Kennedy MD Hematology/Oncology at [facility] Arrive at: [facility] door at end of hallway [phone] Follow-Up: Future Appointments Date Time Provider Department Center 11/11/2023 10:30 AM Taya De La Vega PA [facility] [place] [facility] 11/15/2023 2:30 PM Kirt Kennedy MD [facility] Hem Off [facility] Primary Care Provider: MARISOL Munoz [phone] Unexpected Findings: Follow-up with neurologist immediately or [...] was managed by the Urology Team at [facility]. If you have any questions or concerns, please feel free to contact us. Provider Contact Information: Urology Clinic: [facility] (after business hours): Total time spent on discharge including [id number]-rjvp time, care coordination, and discharge summarypreparation: 80 [...] may be used if needed and are [id number]-[id number] medications available at most local pharmacies. Prunes [...] will call you to schedule. 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 at [facility] Dr Ko PRO CYSTO W URETEROSCOPY &/OR PYELOSCOPY, DX Right 08/05/2023 CYSTOURETEROSCOPY, DIAGNOSTIC (WRVU 5.75) performed by Jonn Navarrete Jr., MD at [facility] MAIN OR PRO CYSTO/URETEROSCOPY W/LITHOTRIPSY INC INDWELLING STENT INSERTION Left 08/05/2023 CYSTOURETEROSCOPY,DIAGNOSTIC,W/ LITHOTRIPSY INC. INSERTION OF INDWELLING URETERAL STENT (WRVU 8) performed by Jonn Navarrete Jr., MD at [facility] MAIN OR PRO CYSTOSCOPY, INSERT URETERAL STENT Right 08/05/2023 CYSTO, STENT PLACEMENT (WRVU 2.82) performed by Jonn Navarrete Jr., MD at [facility] MAIN OR PROSTATE BIOPSY 11/23/2019 ALLERGIES [...] Operative Note Patient Name: Narcisa Eduardo : [id number] MR#: [id number] Case Date: 10/21/2023 Surgeon: Surgeon(s) and Role: [...] Jr., MD - 10/21/2023 1:50 PM EST [facility] Operative Note Patient Name: Narcisa Eduardo : [id number] MR#: [id number] Case Date: 10/21/2023 Surgeon: Surgeon(s) and Role: [...] a 78 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 Stentwas replaced with a new 8 Dominican 26 cm stent in a retrograde fashion. [...] collecting system on fluoroscopic evaluation. An 8 Dominican dilator was used to dilate the tract [...] superstiff wire inthe same fashion. A 21/22 Dominican mini PCNL obturator was advanced over the wire under fluoroscopy to the level of thecalyx. Over the obturator the 22 Dominican mini PCNL sheath was advanced and positioned [...] advanced into the renal pelvis. A 6 Dominican variable length double-J ureteral stent was then passed over the wire and down the right ureter in an antegrade fashion under fluoroscopic guidance. Proximal curl formed in the renal pelvis and distal curl within the bladder. The nephroscope was then removed. Surgiflo was applied to the tract. A 5 Dominican Pollick catheter was passed over the safety wire and the wire was withdrawn. Skin edges were reapproximated with 4-0 Monocryl. The Ella catheter was then secured to the skin using two 0-Silk sutures. The guidewire was then removed from the Binger and Palacios catheter combination. The other remaining superstiffsafety wire [...] EDT Office Visit Radiation Oncology at [address] [phone] Taya De La Vega PA [facility] DR HEMATOLOGY [place] [address] 11/13/2024 2:00 PM EDT Office Visit Hematology/Oncology at [address] [phone] Kirt Kennedy MD [facility] DR HEMAT[place] [address] Alem Lazaro APRN [address] [place] [address] DR HEMATOLOGY AND ONCOLOGY [place], [place] [address] documented as of this encounter Procedures Procedure [...] 2:10 PM EST Cystoscopy, Remv Calculus, Simple (30934) 10/21/2023 12:35 PM EST RIGHT STONE Ultrasonic Guidance, Intraoperative ([id number]) 10/21/2023 12:35 PM EST RIGHT STONE Plmt Nephrostomy Cath Prq New Access Rs&I ([id number]) 10/21/2023 12:35 PM EST RIGHT STONE Cysto W Ureteroscopy &/Or Pyeloscopy, Dx ([id number]) 10/21/2023 12:35 PM EST RIGHT STONE Cysto/Uretero/Pyeloscop y, Calculus Tx ([id number]) 10/21/2023 12:35 PM EST RIGHT STONE Perq Nl/Pl Lithotripsy Complex >2 Cm Field Crop Farmer Locations ([id number]) 10/21/2023 12:35 PM EST RIGHT STONE URINE CULTURE Routine 10/21/2023 9:48 AM EST ABORH RECHECK STATUS Routine 10/21/2023 9:45 AM EST TYPE AND SCREEN, SDP (FUTURE SURGERY, [facility] SAME DAY PROGRAM ONLY) STAT 10/21/2023 9:45 [...] who have questions please contact the health customer care associate that requested your imaging first. ? Narrative [...] patients who have questions please contactthe health customer care associate that requested your imaging first. Jonn Navarrete Jr., MD IM CT ORDERABLES * (ABNORMAL) Differential, Automated (10/22/2023 12:50 AM EST) Neutrophil % 94.1 % [facility] Neutrophil Absolute 15.28(H) 1.70 - 6.10 x10(3)/mc L [facility] Lymph % 3.3 % [facility] Lymphocytes Abs 0.5(L) 0.9 - 3.2 x10(3)/mc L [facility] Monocyte % 1.9 % [facility] Monocyte Abs 0.3 0.3 - 0.9 x10(3)/mc L [facility] Eos % 0.1 % [facility] Eosinophils Abs 0.0 0.0 - 0.4 x10(3)/ L [facility] Basophil % 0.1 % [facility] Baso Absolute 0.0 0.0 - 0.1 x10(3)/mc L [facility] Immature Gran % 0.50 % [facility] Comment: Immature granulocytes(IG's)percentage and absolute count will include metamyelocytes, myelocytes, and promyelocytes. Blood smears from CBCs yielding IG's will be scanned manually for concordance. If this scan disagrees with the automated IG or if promyelocytes are noted, a manual differential will be performed. Immature Gran Absolute 0.08(H) 0.00 - 0.04 x10(3)/mc L [facility] Blood 10/22/2023 12:5 0 AM EST 10/22/2023 1:02 AM EST Narrative Resulting Agency Comment Spec In Lab Maycol Caruso MD HEMATOLOGY ORDERABLE S [facility] [place] [address] * (ABNORMAL) Hemogram (10/22/2023 12:50 AM EST) White Blood Cell 16.2(H) 4.0 - 9.5 x10(3)/mc L [facility] Red Blood Cell 4.02(L) 4.58 - 5.54 x10(6)/mc L [facility] Hemoglobin 12.3(L) 13.7 - 16.5 g/dL [facility] Hematocrit 37.7(L) 40.5 - 48.5 % [facility] Mean Cell Volume 93.8(H) 82.9 - 93.[address] [facility] Mean Cell Hemoglobin 30.6 27.5 - 32.[address] [facility] Mean Cell Hemoglobin Concentration 32.6 32.0 - 35.7 g/dL [facility] Platelet 276 145 - 357 x10(3)/mc L [facility] RDW Standard Deviation 46.9(H) 36.0 - 45.[address] [facility] RDW coefficient of variation 13.6 11.4 - 13.8 % [facility] Mean Platelet Volume 8.8 7.6 - 12.9 fL [facility] NRBC% auto 0.0 % [facility] NRBC Absolute 0.000 0.000 - 0.000 x10(3)/mc L [facility] Blood 10/22/2023 12:5 0 AM EST 10/22/2023 1:02 AM EST Narrative Resulting Agency Comment Spec In Lab Maycol Caruso MD HEMATOLOGY ORDERABLE S [facility] [place] [address] * (ABNORMAL) Basic Metabolic Panel (non-fasting) (10/22/2023 12:50 AM EST) Glucose 211(H) 65 - 199 mg/dL [facility] Comment:Diabetes: >=200 mg/d L plus symptoms Blood Urea Nitrogen 14 10 - 20 mg/dL [facility] Creatinine 0.74(L) 0.80 - 1.50 mg/dL [facility] Sodium 138 135 - 145 mmol/L [facility] Potassium 4.5 3.5 - 5.0 mmol/L [facility] Comment: Please note: ??Patients with WBC >100,000 may have falsely elevated Potassium levels. ??For accurate Potassium quantification in these patients send serum separator tube (gold top) for subsequent determinations. ??Contact the Clinical Chemistry Laboratory if there are any questions. Chloride 103 98 - 107 mmol/L [facility] Carbon Dioxide 26 22 - 31 mmol/L [facility] Anion Gap 9 5 - 15 mmol/L [facility] Calcium 9.3 8.5 - 10.5 mg/dL [facility] Est Glomerular Filtration Rate 93 >=60 mL/min/1. 73 m?? [facility] Comment: This patient's estimated [...] MD CHEMISTRY ORDERABL ES Performing Organization Address City/[facility] Co de Phone Number [facility] [place] [address] * Magnesium (10/22/2023 12:50 AM EST) Magnesium 0.82 0.69 - 1.07 mmol/L [facility] Blood 10/22/2023 12:5 0 AM EST 10/22/2023 1:02 AM EST Narrative Resulting Agency Comment Spec In Lab Jonn Navarrete Jr., MD CHEMISTRY ORDERABL ES Performing Organization Address City/[facility] [place] [address] * Phosphorus (10/22/2023 12:50 AM EST) Phosphorus 3.7 2.5 - 4.5 mg/dL [facility] Blood 10/22/2023 12:5 0 AM EST 10/22/2023 1:02 AM EST Narrative Resulting Agency Comment Spec In Lab Jonn Navarrete Jr., MD CHEMISTRY ORDERABL ES [facility] [place] [address] * XR Fluoro No Rad <1Hr - [...] and its performance characteristics ?determined by [facility] in a manner consistent with CLIA ?requirements. This test has not been cleared or approved by ?the U.S. Food and Drug Administration. ?Test Performed by: ?[facility] - [facility] ?[address] [place] [address] ?Hop Farmer: Russel Clemons M.D. Ph.D.; CLIA# [id number] [facility] Calculus 10/21/2023 4:51 PM EST 10/22/2023 1:26 PM EST Narrative Resulting Agency Comment Spec In Lab Jnon Navarrete Jr., MD LAB SEND OUT ORDER YESSY Performing Organization Address City/State/[facility] Co de Phone Number [facility] [place] [address] * Kidney Stone Analysis (10/21/2023 4:47 PM [...] and its performance characteristics ?determined by [facility] in a manner consistent with CLIA ?requirements. This test has not been cleared or approved by ?the U.S. Food and Drug Administration. ?Test Performed by: ?[facility] - [facility] ?[address] [place] [address] ?Hop Farmer: Russel Clemons M.D. Ph.D.; CLIA# [id number] [facility] Calculus 10/21/2023 4:47 PM EST 10/22/2023 1:26 PM EST Narrative Resulting Agency Comment Spec In Lab Jonn Navarrete Jr., MD LAB SEND OUT ORDER YESSY [facility] [address] [place] [address] * Anaerobic Culture (10/21/2023 3:25 PM EST) Anaerobic Culture No anaerobic organisms isolated [facility] Kidney 10/21/2023 3:25 PM EST 10/21/2023 4:44 PM EST Comment:Right Kidney Stone f or culture Narrative Resulting Agency Comment Spec In Lab Jonn Navarrete Jr., MD MICROBIOLOGY - GEN ERAL ORDERABLES Performing Organization Address City/[facility] [place] [address] * (ABNORMAL) Tissue culture (10/21/2023 3:25 PM EST) Tissue Culture Many Rivera parapsilosis(A) [facility] Gram Stain No Neutrophils seen. No microorganisms seen. (A) [facility] Organism Rivera parapsilosis(A) [facility] Kidney 10/21/2023 3:25 PM EST 10/21/2023 4:44 PM EST Comment:Right Kidney Stone f or culture Narrative Resulting Agency Comment Spec In Lab Jonn Navarrete Jr., MD MICROBIOLOGY - GEN ERAL ORDERABLES Performing Organization Address [facility] [place] [address] * (ABNORMAL) Urine culture Cystoscopic Urine (10/21/2023 2:10 PM EST) Urine Culture 1,000-9,000 cfu/ml Rivera parapsilosi s(A) [facility] Organism Rivera parapsilosi s(A) [facility] Cystoscopic Urine 10/21/2023 2:10 PM EST 10/21/2023 3:02 PM EST Comment:Bladder Urine for Cu lture Narrative Resulting Agency Comment Spec In Lab Jonn Navarrete Jr., MD MICROBIOLOGY - GEN ERAL ORDERABLES Performing Organization Address City/[facility]/ZIP Co de Phone Number [facility] [place] [address] * (ABNORMAL) Urine culture (10/21/2023 9:48 AM EST) Urine Culture 50,000-99,000 cfu/ml mixed mucosal stefania 50,000-99,000 cfu/ml Gram Negative organisms Note: Culture shows multiple bacterial species suggesting mucosal contamination. (A) [facility] Urine 10/21/2023 9:48 AM EST 10/21/2023 10:35 AM EST Narrative Resulting Agency Comment Spec In Lab Jonn Navarrete Jr., MD MICROBIOLOGY - GEN ERAL ORDERABLES Performing Organization Address [facility] Co de Phone Number [facility] [place] [address] * ABORH Recheck Status (10/21/2023 9:45 AM EST) ABORH Type Recheck Completed [facility] Blood 10/21/2023 9:45 AM EST 10/21/2023 9:56 AM EST Narrative Resulting Agency Comment Spec In Lab Jonn Navarrete Jr., MD BLOOD BANK LAB ORD ERABLES Performing Organization Address [facility] Phone Number [facility] [place] [address] * Type and Screen Future Surgery, [facility] SAME DAY PROGRAM ONLY) (10/21/2023 9:45 AM EST) ABORH Type A POSITIVE [facility] Patient BB History Found [facility] Expires at 2359 on: 10-24-2023 [facility] Ab Screen Interp Negative [facility] Blood 10/21/2023 9:45 AM EST 10/21/2023 9:45 AM EST Narrative Resulting Agency Comment Spec In Lab Jonn Navarrete Jr., MD BLOOD BANK LAB ORD ERABLES Performing Organization Address [facility] Co de Phone Number [facility] [place] [address] * SCAN DOC: IMPLANTABLE DEVICES (10/21/2023 12:00 [...] mL Mini-Bag Plus (COMPLETED) 2 g, Intravenous, CUSTODY OFFICER TO O.R., 1 dose, On Wed10/21/23 at [...] 200 mL infusion (COMPLETED) 400 mg, Intravenous, CUSTODY OFFICER TO O.R., 1 dose, On Brisa 10/21/23 [...] are indicated., Routine 1827 (Given - Provider: Loretat Thomson RN) BUpivacaine (pf) (Marcaine) (5 mg/mL) 0.5% injection (CANCELED) PRN, Starting on Brisa 10/21/23 at 1702, Until Wed10/22/23 at 2019, Intra-Operative (Intra-Procedure), Routine 1702 (Given - Provider: Chris Navarrete Jr., MD) iohexoL (Omnipaque) (300 mg/mL) solution (CANCELED) PRN, Starting on Brisa 10/21/23 at 1540, Until Wed10/22/23 at 2019, Intra-Operative (Intra-Procedure), Routine 1540 (Given - Provider: Chris Naavrrete Jr., MD - Comment: Placed 100 ml [...] Routine documented in this encounter Care Teams Paid Search Marketing Strategist Relationship Specialty Start Date End Date Amanda Pino PA [address] [place] [address] PCP - General Internal Medicine 04/28/23 documented as of this encounter
--- OUTSIDE RECORDS SUMMARY | 2024-07-08 01:31 | XMS_ITS | Encounter Summary ---
Author Organization [facility] [place] [address] Care Team Providers Care Patient Services Assistant Name Role Phone Amanda Pino Primary Care Provider [phone] Encounter Details Date Type Department Care Team (Late st Contact Info) Description 11/03/2023 [place] [phone] Alex Sewell, RN Social History Tobacco Use [...] Spoke to patient's , Darrel, regarding her [facility] message about this patient's prescription for Fluconazole [...] before surgery. Sherequested to to this at [facility] lab. I told her we will fax them an order for his urine culture. I advised her that I will notify Dr. Navarrete and have a new prescription ordered with appropriate instructions. documented in this encounter Plan of Treatment Upcoming Encounters Date Type Department Care Team (Late st Contact Info) Description 11/09/2024 10:30 AM EDT Office Visit Radiation Oncology at [address] [phone] Taya De La Vega PA [facility] [place] [address] 11/13/2024 2:00 PM EDT Office Visit Hematology/Oncology at [address] [phone] Kirt Kennedy MD [facility] DR [place] [address] Alem Lazaro APRN [address] [place] [address] DR HEMATOLOGY AND ONCOLOGY [place], [place] [phone] documented as of this encounter Visit Diagnoses Diagnosis Pre-op testing Preoperative examination, unspecified documented in this encounter Care Teams Patient Services Assistant Relationship Specialty Start Date End Date Amanda Pino PA [address] [place] [address] PCP - General Internal Medicine 04/28/23 documented as of this encounter
--- OUTSIDE RECORDS SUMMARY | 2024-07-08 01:31 | XMS_ITS | Encounter Summary ---
Author Organization [facility] Address [facility] [place] [address] Care Team Providers Care External Relations Director Name Role Phone Amanda Pino Primary Care Provider [phone] Encounter Details Date Type Department Care Team (Late st Contact Info) Description 10/27/2023 Telephone Urology at [place] [phone] Alex Sewell, RN Social History Tobacco Use [...] 10/27/2023 1:46 PM EST Copied from CRM #[id number]. Topic: Specialty Dept CRMs - Medication Issues [...] with the medication: Patient and spouse cannot last picker medication on scheduled date. documented in this encounter Plan of Treatment Upcoming Encounters Date Type Department Care Team (Late st Contact Info) Description 11/09/2024 10:30 AM EDT Office Visit Radiation Oncology at [address] [phone] Taya De La Vega PA [facility] DR HEMATOLOG[place] [address] 11/13/2024 2:00 PM EDT Office Visit Hematology/Oncology at [address] [phone] Kirt Kennedy MD [facility] DR HEMATOLOGY [place] [address] Alem Lazaro APRN [address] [place] [address] DR HEMATOLOGY AND ONCOLOGY [place], [place] [address] documented as of this encounter Visit Diagnoses Not on filedocumented in this encounter Care Teams External Relations Director Relationship Specialty Start Date End Date Amanda Pino PA [address] [place] [address] PCP - General Internal Medicine 04/28/23 documented as of this encounter
--- OUTSIDE RECORDS SUMMARY | 2024-07-08 01:31 | XMS_ITS | Encounter Summary ---
Author Organization [facility] Address [facility] [place] [address] Care Team Providers Care Facility Supervisor Name Role Phone Amanda Pino Primary Care Provider [phone] Encounter Details Date Type Department Care Team [...] EDT Office Visit Radiation Oncology at [address] [phone] Taya De La Vega PA [facility] DR HEMATOLOGY [place] [address] 11/13/2024 2:00 PM EDT Office Visit Hematology/Oncology at [address] [phone] Kirt Kennedy MD [facility] DR [place]EM[place] [address] Alem Lazaro APRN [address] [place] [address] DR HEMATOLOGY [place] [address] documented as of this encounter Visit Diagnoses Not on filedocumented in this encounter Care Teams Facility Supervisor Relationship Specialty Start Date End Date Amanda Pino PA [address] [place] [address] PCP - General Internal Medicine 04/28/23 documented as of this encounter
--- OUTSIDE RECORDS SUMMARY | 2024-07-08 01:31 | XMS_ITS | Encounter Summary ---
Author Organization [facility] Address [facility] [place] [address] Care Team Providers Care Freezing Machine Operator Name Role Phone Amanda Pino Primary Care Provider Reason for Visit * Reason Comments Nephrolithiasis * Consultation (Routine) - Closed Specialty Diagnoses / Procedures Referred By Rogers t Referred To Contact Urology Diagnoses Calculus of kidney Amanda Pino PA [address] [place] [address] [facility] [place] [address] Referral ID Status Reason Start Date Expiration Date V isits Requested Visits Authorized [id number] Closed Consult, Test & Treat PCP Updated and/or Approved 04/23/2023 10/20/2023 [id number] Encounter Details Date Type Department Care Team (Late st Contact Info) Description 05/24/2023 11:00 AM EDT [place] [phone] Adan Navarrete Jr., MD [facility] [place] [address] Nephrolithiasis Social History Tobacco Use Types Packs/Day [...] he again attempted [place] the [place], but were unable to access either ureteral orifice ease uretereroscopically and placed bilateral 8 Czech stents. By report he was scheduled to undergo left ureteroscopy laser lithotripsy and right stent removal on 04/29/2023. These notes have not been forwarded, but he states he was told he would require PCNL to remove the stones andthat it cannot be performed at the [facility]. PMHx: Postoperative delirium, depression, bradycardia, subdural [...] CVA tenderness to percussion bilaterally Imaging Studies: [place] has not yet forwarded the most recent [...] most recent CT. I have again contacted [place] team to request. With regard to [...] EDT Office Visit Radiation Oncology at [address] [phone] Taya De La Vega PA [facility] DR HEMATOLOGY [place] [address] 11/13/2024 2:00 PM EDT Office Visit Hematology/Oncology at [address] [phone] Kirt Kennedy MD [facility] DR HEMATOLOGY [place] [address] Alem Lazaro APR[address] HEMATOLOGY AND ONCOLOGY [place], [place] [id number] documented as of this encounter Procedures Procedure Name Priority Date/Time Associated Diagnosis Comments HEMOGRAM Routine 05/24/2023 1:38 PM EDT Nephrolithiasis DIFFERENTIAL, AUTOMATED Routine 05/24/2023 1:38 PM EDT Nephrolithiasis CBC (WITH DIFF) Routine 05/24/2023 1:38 PM EDT Nephrolithiasis BASIC METABOLIC PANEL STAT 05/24/2023 1:38 PM EDT Nephrolithiasis documented in this encounter Results * Differential, Automated (05/24/2023 1:38 PM EDT) Neutrophil % 66.8 % [facility] Neutrophil Absolute 4.67 1.70 - 6.10 x10(3)/[facility] Lymph % 19.7 % [facility] Lymphocytes Abs 1.4 0.9 - 3.2 x10(3)/[facility] Monocyte % 7.9 % [facility] Monocyte Abs 0.6 0.3 - 0.9 x10(3)/[facility] Eos % 4.6 % [facility] Eosinophils Abs 0.3 0.0 - 0.4 x10(3)/[facility] Basophil % 0.6 % [facility] Baso Absolute 0.0 0.0 - 0.1 x10(3)/[facility] Immature Gran % 0.40 % [facility] Comment: Immature granulocytes(IG's)percentage and absolute count will include metamyelocytes, myelocytes, and promyelocytes. Blood smears from CBCs yielding IG's will be scanned manually for concordance. If this scan disagrees with the automated IG or if promyelocytes are noted, a manual differential will be performed. Immature Gran Absolute 0.03 0.00 - 0.04 x10(3)/[facility] Blood 05/24/2023 1:38 PM EDT 05/24/2023 1:42 PM EDT Narrative Resulting Agency Comment Spec In Lab Adan Navarrete Jr., MD HEMATOLOGY ORDERAB LES [facility] [address] * (ABNORMAL) Hemogram (05/24/2023 1:38 PM EDT) White Blood Cell 7.0 4.0 - 9.5 x10(3)/ L [facility] Red Blood Cell 4.46(L) 4.58 - 5.54 x10(6)/mc L [facility] Hemoglobin 13.4(L) 13.7 - 16.5 g/dL [facility] Hematocrit 41.0 40.5 - 48.5 % [facility] Mean Cell Volume 91.9 82.9 - 93.1 fL [facility] Mean Cell Hemoglobin 30.0 27.5 - 32.1 pg [facility] Mean Cell Hemoglobin Concentration 32.7 32.0 - 35.7 g/dL [facility] Platelet 164 145 - 357 x10(3)/mc L [facility] RDW Standard Deviation 50.8(H) 36.0 - 45.0 fL [facility] RDW coefficient of variation 15.0(H) 11.4 - 13.8 % [facility] Mean Platelet Volume 8.6 7.6 - 12.9 fL [facility] NRBC% auto 0.0 % [facility] NRBC Absolute 0.000 0.000 - 0.000 x10(3)/mc L [facility] Blood 05/24/2023 1:38 PM EDT 05/24/2023 1:42 PM EDT Narrative Resulting Agency Comment Spec In Lab Adan Navarrete Jr., MD HEMATOLOGY ORDERAB LES [facility] [address] * (ABNORMAL) Basic Metabolic Panel (non-fasting) (05/24/2023 1:38 PM EDT) Glucose 118 65 - 199 mg/dL [facility] Comment:Diabetes: >=200 mg/d L plus symptoms Blood Urea Nitrogen 11 10 - 20 mg/dL [facility] Creatinine 0.76(L) 0.80 - 1.50 mg/dL [facility] Sodium 140 135 - 145 mmol/L [facility] Potassium 4.2 3.5 - 5.0 mmol/L [facility] Comment: Please note: ??Patients with WBC >100,000 may have falsely elevated Potassium levels. ??For accurate Potassium quantification in these patients send serum separator tube (gold top) for subsequent determinations. ??Contact the Clinical Chemistry Laboratory if there are any questions. Chloride 105 98 - 107 mmol/L [facility] Carbon Dioxide 25 22 - 31 mmol/L [facility] Anion Gap 10 5 - 15 mmol/L [facility] Calcium 9.2 8.5 - 10.5 mg/dL [facility] Est Glomerular Filtration Rate 93 >=60 mL/min/1. 73 m?? [facility] Comment: This patient's estimated GFR was [...] MD CHEMISTRY ORDERABL ES Performing Organization Address City/State/[facility] Co de Phone Number [facility] [place] [address] documented in this encounter Visit Diagnoses Diagnosis Nephrolithiasis Calculus of kidney documented in this encounter Care Teams Freezing Machine Operator Relationship Specialty Start Date End Date Amanda Pino PA [address] [place] [address] PCP - General Internal Medicine 04/28/23 documented as of this encounter
--- OUTSIDE RECORDS SUMMARY | 2024-07-08 01:31 | XMS_ITS | Encounter Summary ---
Author Organization [facility] Address [facility] [place] [address] Care Team Providers Care Paint Trimmer Pipe Bowls Name Role Phone Amanda Pino Primary Care Provider [phone] Encounter Details Date Type Department Care Team [...] EDT Office Visit Radiation Oncology at [address] [place] [address] [phone] Taya De La Vega PA [facility] [place] [address] 11/13/2024 2:00 PM EDT Office Visit Hematology/Oncology at [address] [place] [address] [phone] Kirt Kennedy MD [facility] [place] [address] Alem Lazaro APRN [address] [place] [address] DR HEMATOLOGY [place] [address] documented as of this encounter Visit Diagnoses Not on filedocumented in this encounter Care Teams Paint Trimmer Pipe Bowls Relationship Specialty Start Date End Date Amanda Pino PA [address] [place] [address] PCP - General Internal Medicine 04/28/23 documented as of this encounter
--- OUTSIDE RECORDS SUMMARY | 2024-07-08 01:31 | XMS_ITS | Encounter Summary ---
Author Organization [facility] Address [facility] [place] [address] Care Team Providers Care Gutter Installer Name Role Phone Amanda Pino Primary Care Provider [phone] Encounter Details Date Type Department Care Team [...] EDT Office Visit Radiation Oncology at [address] [phone] Taya De La Vega PA [facility] DR HEMATOLOGY [place] [address] 11/13/2024 2:00 PM EDT Office Visit Hematology/Oncology at [address] [phone] Kirt Kennedy MD [facility] DR [place] [address] Alem Lazaro APRN [address] [place] [address] DR HEMATOLOGY [place] [address] documented as of this encounter Visit Diagnoses Not on filedocumented in this encounter Care Teams Gutter Installer Relationship Specialty Start Date End Date Amanda Pino PA [address] [place] [address] PCP - General Internal Medicine 04/28/23 documented as of this encounter
--- OUTSIDE RECORDS SUMMARY | 2024-07-08 01:31 | XMS_ITS | Encounter Summary ---
Author Organization [facility] [place] [address] Care Team Providers Care Account Analyst Name Role Phone Amanda Pino Primary Care Provider [phone] Encounter Details Date Type Department Care Team (Late st Contact Info) Description 07/28/2023 Telephone Urology at [facility] [place] [phone] Perla Vail RN Social History Tobacco Use [...] - 07/28/2023 4:58 PM EST Copied from [facility] #[id number]. Topic: Specialty Dept CRMs - Generic Call [...] EDT Office Visit Radiation Oncology at [address] [phone] Taya De La Vega PA [facility] DR [place] [address] 11/13/2024 2:00 PM EDT Office Visit Hematology/Oncology at [address] [phone] Kirt Kennedy MD [facility] DR [place] [address] Alem Lazaro APRN [address] [place] [address] DR HEMATOLOGY AND ONCOLOGY [place], [place] [phone] documented as of this encounter Visit Diagnoses Not on filedocumented in this encounter Care Teams Account Analyst Relationship Specialty Start Date End Date Amanda Pino PA [address] [place] [address] PCP - General Internal Medicine 04/28/23 documented as of this encounter
--- OUTSIDE RECORDS SUMMARY | 2024-07-08 01:31 | XMS_ITS | Encounter Summary ---
Author Organization [facility] [place] [address] Care Team Providers Care Devops Solutions Architect Name Role Phone Amanda Pino Primary Care Provider Reason for Visit * Auth/Cert (Routine) Specialty Diagnoses / Procedures Referred By Contaryan t Referred To Contact Diagnoses RIGHT STONE Procedures PRO PERQ NL/PL LITHOTRIPSY COMPLEX >2 CM SOFTWARE CONFIGURATION ANALYST LOCATIONS PRO PLMT NEPHROSTOMY CATH PRQ NEW [...] MODIFIER HOLMIUM LASER Jonn Navarrete Jr., MD [facility] [address] [facility] Referral ID Status Reason Start Date Expiration Date Visits Re quested Visits Authorized [id number] 1 1 Encounter Details Date Type Department Care Team (Latest Contact Info) Description 10/21/2023 9:23 AM EST - 10/22/2023 6:19 PM EST Hospital Encounter Short Stay Unit [place] [address] Jonn Navarrete Jr., MD [facility] [place] [place] [address] Nephrolithiasis Discharge Disposition: Home Social History Tobacco [...] Narcisa Eduardo Patient Age: 78 y.o. 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 He sees neurology at the [facility] and it's thought stressors can trigger seizures. [...] who have questions please contact the health hemodialysis patient care specialist that requested your imaging first. Electronically signed by: Damian Duggan MD, [facility] ([phone]), at 10/22/2023 7:24 AM Pending Studies and [...] may be used if needed and are rogu-nku-ypyiicp medications available at most local pharmacies. Prunes [...] will call you to schedule. Please call [phone] (clinic number for appointments) to confirm date [...] at [facility] Arrive at: [facility] door at end of hallway [phone] 11/15/2023 2:30 PM Alem Lazaro APRN; Kirt Kennedy MD Hematology/Oncology at [facility] Arrive at: [facility] door at end of hallway [phone] Follow-Up: Future Appointments Date Time Provider Department Soldier 11/11/2023 10:30 AM Taya De La Vega PA [facility] 11/15/2023 2:30 PM Kirt Kennedy MD [address] Hem Off [facility] Primary Care Provider: MARISOL Munoz [phone] Unexpected Findings: Follow-up with neurologist immediately or [...] was managed by the Urology Team at [facility]. If you have any questions or concerns, please feel free to contact us. Provider Contact Information: Urology Clinic: [facility] (after business hours): Total time spent on discharge including rvod-je-bxrh time, care coordination, and discharge summarypreparation: 80 [...] may be used if needed and are wisy-exu-ffuttwu medications available at most local pharmacies. Prunes [...] will call you to schedule. Please call [phone] (clinic number for appointments) to confirm date [...] Gant RN - 10/22/2023 6:16 PM EST [facility] Short Stay Unit Discharge Note [...] Note Patient: Narcisa Eduardo : 1945 Room: [address] Admit date: 10/21/2023 Attending: Jonn Navarrete [...] a walker. He sees neurology at the [facility] and it's thought stressors can trigger seizures. 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 at [facility] Dr Ko PRO CYSTO W URETEROSCOPY &/OR PYELOSCOPY, DX Right 08/05/2023 CYSTOURETEROSCOPY, DIAGNOSTIC (WRVU 5.75) performed by Jonn Navarrete Jr., MD at [facility] MAIN OR PRO CYSTO/URETEROSCOPY W/LITHOTRIPSY INC INDWELLING STENT INSERTION Left 08/05/2023 CYSTOURETEROSCOPY,DIAGNOSTIC,W/ LITHOTRIPSY INC. INSERTION OF INDWELLING URETERAL STENT (WRVU 8) performed by Jonn Navarrete Jr., MD at [facility] MAIN OR PRO CYSTOSCOPY, INSERT URETERAL STENT Right 08/05/2023 CYSTO, STENT PLACEMENT (WRVU 2.82) performed by Jonn Navarrete Jr., MD at [facility] MAIN OR PROSTATE BIOPSY 11/23/2019 [...] Brief Operative Note Patient Name: Narcisa SOARES: [id number] MR#: [id number] Case Date: 10/21/2023 Surgeon: Surgeon(s) and Role: [...] Operative Note Patient Name: Narcisa Eduardo : [id number] MR#: [id number] Case Date: 10/21/2023 Surgeon: Surgeon(s) and Role: [...] CYSTOURETEROSCOPY, DIAGNOSTIC (WRVU 5.75) (Right) NEPHROSTOMY CATHETER, [facility] DX NEPHROSTOGRAM/URETEROGRAM, IMG GUIDANCE (WRVU 4) [...] 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 Stentwas replaced with a new 8 Ivorian 26 cm stent in a retrograde fashion. [...] collecting system on fluoroscopic evaluation. An 8 Ivorian dilator was used to dilate the tract [...] superstiff wire inthe same fashion. A 21/22 Ivorian mini PCNL obturator was advanced over the wire under fluoroscopy to the level of thecalyx. Over the obturator the 22 Ivorian mini PCNL sheath was advanced and positioned [...] advanced into the renal pelvis. A 6 Ivorian variable length double-J ureteral stent was then passed over the wire and down the right ureter in an antegrade fashion under fluoroscopic guidance. Proximal curl formed in the renal pelvis and distal curl within the bladder. The nephroscope was then removed. Surgiflo was applied to the tract. A 5 Ivorian Pollick catheter was passed over the safety wire and the wire was withdrawn. Skin edges were reapproximated with 4-0 Monocryl. The Ella catheter was then secured to the skin using two 0-Silk sutures. The guidewire was then removed from the Ella and Silt catheter combination. The other remaining superstiffsafety wire [...] EDT Office Visit Radiation Oncology at [address] [phone] Taya De La Vega PA [facility] DR [place] [address] 11/13/2024 2:00 PM EDT Office Visit Hematology/Oncology at [address] [phone] iKrt Kennedy MD [facility] DR H[place]Y [place] [address] Alem Lazaro APRN [address] [place] [address] DR HEMATOLOGY AND ONCOLOGY [place], [place] [id number] documented as of this encounter Procedures Procedure [...] 2:10 PM EST Cystoscopy, Remv Calculus, Simple ([id number]) 10/21/2023 12:35 PM EST RIGHT STONE Ultrasonic Guidance, Intraoperative ([id number]) 10/21/2023 12:35 PM EST RIGHT STONE Plmt Nephrostomy Cath Prq New Access Rs&I ([id number]) 10/21/2023 12:35 PM EST RIGHT STONE Cysto W Ureteroscopy &/Or Pyeloscopy, Dx ([id number]) 10/21/2023 12:35 PM EST RIGHT STONE Cysto/Uretero/Pyeloscop y, Calculus Tx ([id number]) 10/21/2023 12:35 PM EST RIGHT STONE Perq Nl/Pl Lithotripsy Complex >2 Cm Global Technical Writer Locations ([id number]) 10/21/2023 12:35 PM EST RIGHT STONE URINE [...] who have questions please contact the health hemodialysis patient care specialist that requested your imaging first. [...] patients who have questions please contactthe health hemodialysis patient care specialist that requested your imaging first. Electronically signed by: Damian Duggan MD, [facility]([phone]), at 10/22/2023 7:24 AM Jonn Navarrete Jr., MD IMG CT ORDERABLES * (ABNORMAL) Differential, Automated (10/22/2023 12:50 AM EST) Neutrophil % 94.1 % [facility] Neutrophil Absolute 15.28(H) 1.70 - 6.10 x10(3)/mc L [facility] Lymph % 3.3 % [facility] Lymphocytes Abs 0.5(L) 0.9 - 3.2 x10(3)/mc L [facility] Monocyte % 1.9 % [facility] Monocyte Abs 0.3 0.3 - 0.9 x10(3)/mc L [facility] Eos % 0.1 % [facility] Eosinophils Abs 0.0 0.0 - 0.4 x10(3)/ L [facility] Basophil % 0.1 % [facility] Baso Absolute 0.0 0.0 - 0.1 x10(3)/mc L [facility] Immature Gran % 0.50 % [facility] Comment: Immature granulocytes(IG's)percentage and absolute count will include metamyelocytes, myelocytes, and promyelocytes. Blood smears from CBCs yielding IG's will be scanned manually for concordance. If this scan disagrees with the automated IG or if promyelocytes are noted, a manual differential will be performed. Immature Gran Absolute 0.08(H) 0.00 - 0.04 x10(3)/mc L [facility] Blood 10/22/2023 12:5 0 AM EST 10/22/2023 1:02 AM EST Narrative Resulting Agency Comment Spec In Lab Maycol Caruso MD HEMATOLOGY ORDERABLE S [facility] [address] * (ABNORMAL) Hemogram (10/22/2023 12:50 AM EST) White Blood Cell 16.2(H) 4.0 - 9.5 x10(3)/mc L [facility] Red Blood Cell 4.02(L) 4.58 - 5.54 x10(6)/ L [facility] Hemoglobin 12.3(L) 13.7 - 16.5 g/dL [facility] Hematocrit 37.7(L) 40.5 - 48.5 % [facility] Mean Cell Volume 93.8(H) 82.9 - 93.1 fL [facility] Mean Cell Hemoglobin 30.6 27.5 - 32.1 pg [facility] Mean Cell Hemoglobin Concentration 32.6 32.0 - 35.7 g/dL [facility] Platelet 276 145 - 357 x10(3)/mc L [facility] RDW Standard Deviation 46.9(H) 36.0 - 45.0 fL [facility] RDW coefficient of variation 13.6 11.4 - 13.8 % [facility] Mean Platelet Volume 8.8 7.6 - 12.9 fL [facility] NRBC% auto 0.0 % [facility] NRBC Absolute 0.000 0.000 - 0.000 x10(3)/ L [facility] Blood 10/22/2023 12:5 0 AM EST 10/22/2023 1:02 AM EST Narrative Resulting Agency Comment Spec In Lab Maycol Caruso MD HEMATOLOGY ORDERABLE S Performing Organization Address City/State/[facility] Co de Phone Number [facility] [place] [address] * (ABNORMAL) Basic Metabolic Panel (non-fasting) (10/22/2023 12:50 AM EST) Glucose 211(H) 65 - 199 mg/dL [facility] Comment:Diabetes: >=200 mg/d L plus symptoms Blood Urea Nitrogen 14 10 - 20 mg/dL [facility] Creatinine 0.74(L) 0.80 - 1.50 mg/dL [facility] Sodium 138 135 - 145 mmol/L [facility] Potassium 4.5 3.5 - 5.0 mmol/L [facility] Comment: Please note: ??Patients with WBC >100,000 may have falsely elevated Potassium levels. ??For accurate Potassium quantification in these patients send serum separator tube (gold top) for subsequent determinations. ??Contact the Clinical Chemistry Laboratory if there are any questions. Chloride 103 98 - 107 mmol/L [facility] Carbon Dioxide 26 22 - 31 mmol/L [facility] Anion Gap 9 5 - 15 mmol/L [facility] Calcium 9.3 8.5 - 10.5 mg/dL [facility] Est Glomerular Filtration Rate 93 >=60 mL/min/1. 73 m?? [facility] Comment: This patient's estimated GFR was [...] MD CHEMISTRY ORDERABL ES Performing Organization Address City/[facility]/ZIP Co de Phone Number [facility] [place] [address] * Magnesium (10/22/2023 12:50 AM EST) Magnesium 0.82 0.69 - 1.07 mmol/L [facility] Blood 10/22/2023 12:5 0 AM EST 10/22/2023 1:02 AM EST Narrative Resulting Agency Comment Spec In Lab Jonn Navarrete Jr., MD CHEMISTRY ORDERABL ES Performing Organization Address City/[facility]/ZIP Co de Phone Number [facility] [place] [address] * Phosphorus (10/22/2023 12:50 AM EST) Phosphorus 3.7 2.5 - 4.5 mg/dL [facility] Blood 10/22/2023 12:5 0 AM EST 10/22/2023 1:02 AM EST Narrative Resulting Agency Comment Spec In Lab Jonn Navarrete Jr., MD CHEMISTRY ORDERABL ES [facility] [address] * XR Fluoro No Rad <1Hr - [...] developed and its performance characteristics ?determined by [facility] in a manner consistent with CLIA ?requirements. This test has not been cleared or approved by ?the U.S. Food and Drug Administration. ?Test Performed by: ?[facility] ?[address] [place] [address] ?Conche Loader And Unloader: Russel Clemons M.D. Ph.D.; CLIA# [id number] [facility] Calculus 10/21/2023 4:51 PM EST 10/22/2023 1:26 PM EST Narrative Resulting Agency Comment Spec In Lab Jonn Navarrete Jr., MD LAB SEND OUT ORDER YESSY [facility] [place] [address] * Kidney Stone Analysis (10/21/2023 4:47 PM [...] developed and its performance characteristics ?determined by [facility] in a manner consistent with CLIA ?requirements. This test has not been cleared or approved by ?the U.S. Food and Drug Administration. ?Test Performed by: ?[facility] ?[address] [place] [address] ?Conche Loader And Unloader: Russel Clemons M.D. Ph.D.; CLIA# [id number] [facility] Calculus 10/21/2023 4:47 PM EST 10/22/2023 1:26 PM EST Narrative Resulting Agency Comment Spec In Lab Jonn Navarrete Jr., MD LAB SEND OUT ORDER YESSY [facility] [place] [address] * Anaerobic Culture (10/21/2023 3:25 PM EST) Anaerobic Culture No anaerobic organisms isolated [facility] Kidney 10/21/2023 3:25 PM EST 10/21/2023 4:44 PM EST Comment:Right Kidney Stone f or culture Narrative Resulting Agency Comment Spec In Lab Jonn Navarrete Jr., MD MICROBIOLOGY - GEN ERAL ORDERABLES Performing Organization Address [facility] Co de Phone Number [facility] [address] * (ABNORMAL) Tissue culture (10/21/2023 3:25 PM EST) Tissue Culture Many Rivera parapsilosis(A) [facility] Gram Stain No Neutrophils seen. No microorganisms seen. (A) [facility] Organism Rivera parapsilosis(A) [facility] Kidney 10/21/2023 3:25 PM EST 10/21/2023 4:44 PM EST Comment:Right Kidney Stone f or culture Narrative Resulting Agency Comment Spec In Lab Jonn Navarrete Jr., MD MICROBIOLOGY - GEN ERAL ORDERABLES Performing Organization Address [facility] Co de Phone Number [facility] [place] [address] * (ABNORMAL) Urine culture Cystoscopic Urine (10/21/2023 2:10 PM EST) Urine Culture 1,000-9,000 cfu/ml Rivera parapsilosi s(A) [facility] Organism Rivera parapsilosi s(A) [facility] Cystoscopic Urine 10/21/2023 2:10 PM EST 10/21/2023 3:02 PM EST Comment:Bladder Urine for Cu lture Narrative Resulting Agency Comment Spec In Lab Jonn Navarrete Jr., MD MICROBIOLOGY - GEN ERAL ORDERABLES Performing Organization Address [facility] Co de Phone Number [facility] [place] [address] * (ABNORMAL) Urine culture (10/21/2023 9:48 AM EST) Urine Culture 50,000-99,000 cfu/ml mixed mucosal stefania 50,000-99,000 cfu/ml Gram Negative organisms Note: Culture shows multiple bacterial species suggesting mucosal contamination. (A) [facility] Urine 10/21/2023 9:48 AM EST 10/21/2023 10:35 AM EST Narrative Resulting Agency Comment Spec In Lab Jonn Navarrete Jr., MD MICROBIOLOGY - GEN ERAL ORDERABLES Performing Organization Address [facility] Co de Phone Number [facility] [address] * ABORH Recheck Status (10/21/2023 9:45 AM EST) ABORH Type Recheck Completed [facility] Blood 10/21/2023 9:45 AM EST 10/21/2023 9:56 AM EST Narrative Resulting Agency Comment Spec In Lab Jonn Navarrete Jr., MD BLOOD BANK LAB ORD ERABLES Performing Organization Address [facility] de Phone Number [facility] [address] * Type and Screen Future Surgery, [facility] SAME DAY PROGRAM ONLY) (10/21/2023 9:45 AM EST) ABORH Type A POSITIVE [facility] Patient BB History Found [facility] Expires at 2359 on: 10-24-2023 [facility] Ab Screen Interp Negative [facility] Blood 10/21/2023 9:45 AM EST 10/21/2023 9:45 AM EST Narrative Resulting Agency Comment Spec In Lab Jonn Navarrete Jr., MD BLOOD BANK LAB ORD ERABLES Performing Organization Address [facility] Co de Phone Number [facility] [place] [address] * SCAN DOC: IMPLANTABLE DEVICES (10/21/2023 12:00 [...] mL Mini-Bag Plus (COMPLETED) 2 g, Intravenous, KENNEL ASSISTANT TO O.R., 1 dose, On Brisa 10/21/23 [...] 200 mL infusion (COMPLETED) 400 mg, Intravenous, KENNEL ASSISTANT TO O.R., 1 dose, On Brisa 10/21/23 [...] Patient/family refused - Comment: Got med from [facility], pt declined)1349 (Given - Provider: Tanvi Gant [...] Routine documented in this encounter Care Teams Devops Solutions Architect Relationship Specialty Start Date End Date Amanda Pino PA [address] [place] [address] PCP - General Internal Medicine 04/28/23 documented as of this encounter
--- OUTSIDE RECORDS SUMMARY | 2024-07-08 01:31 | XMS_ITS | Encounter Summary ---
Author Organization [facility] Address [facility] [place] [address] Care Team Providers Care Acetylene Operator Name Role Phone Amanda Pino Primary Care Provider Reason for Referral * Diagnostic Test (Routine) - Closed Specialty Diagnoses / Procedures Referred By Contac t Referred To Contact Radiology Diagnoses Nephrolithiasis Procedures CT Abdomen & Pelvis wo Contrast Adan Navarrete Jr., MD [facility] [place] [address] [place] [address] [facility] [place] [address] Referral ID Status Reason Start Date Expiration Date V isits Requested Visits Authorized [id number] Closed Specialty Service Requested 09/06/2023 03/06/2025 1 1 Reason for Visit * Reason Comments Nephrolithiasis Encounter Details Date Type Department Care Team (Late st Contact Info) Description 09/06/2023 10:30 AM EST Office [place] [address] Adan Navarrete Jr., MD [facility] [place] [address] Nephrolithiasis Social History Tobacco Use [...] history notable for seizure disorder, hypertension, depression, 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 By report he was scheduled to undergo left ureteroscopy laser lithotripsy and right stent removal on 04/29/2023. These notes have not been forwarded, but he states he was told he would require PCNL to remove the stones andthat it cannot be performed at the [facility]. Despite multiple requests from the [facility], CT images were not forwarded to us [...] CVA tenderness to percussion bilaterally Imaging Studies: [facility] has not yet forwarded the most recent [...] note, an additional lateral calcification identified on channel business manager fluoroscopy appears to be within the liver [...] EDT Office Visit Radiation Oncology at [address] [phone] Taya De La Vega PA [facility] DR [place] [address] 11/13/2024 2:00 PM EDT Office Visit Hematology/Oncology at [address] [phone] Kirt Kennedy MD [facility] DR [place] [address] Alem Lazaro APRN [address] [place] [address] DR HEMATOLOGY AND ONCOLOGY [place], [place] [id number] documented as of this encounter Procedures Procedure Name Priority Date/Time Associated Diagnosis Comments URINE CULTURE Routine 09/06/2023 1:20 PM EST Nephrolithiasis documented in this encounter Results * (ABNORMAL) Urine culture Clean Catch Urine (09/06/2023 1:20 PM EST) Urine Culture 50,000-99,000 cfu/ml mixed mucosal stefania 10,000-49,000 cfu/ml Gram Negative organisms Note: Culture shows multiple bacterial species suggesting mucosal contamination. (A) [facility] Clean Catch Urine 09/06/2023 1:20 PM EST 09/06/2023 3:16 PM EST Narrative Resulting Agency Comment Spec In Lab Adan Navarrete Jr., MD MICROBIOLOGY - GEN ERAL ORDERABLES [facility] [place] [address] * (ABNORMAL) CT Abdomen & Pelvis wo [...] who have questions please contact the health rn acute care that requested your imaging first. ? Narrative [...] kidney documented in this encounter Care Teams Acetylene Operator Relationship Specialty Start Date End Date Amanda Pino PA [address] [place] [address] PCP - General Internal Medicine 04/28/23 documented as of this encounter
--- OUTSIDE RECORDS SUMMARY | 2024-07-08 01:31 | XMS_ITS | Encounter Summary ---
Author Organization [facility] Address [facility] [place] [address] Care Team Providers Care Rouge Presser Name Role Phone Amanda Pino Primary Care Provider [phone] Encounter Details Date Type Department Care Team (Late Contact Info) Description 10/22/2023 [place] [address] Solange Shrestha PA [facility] [place] [address] Nephrolithiasis Social History Tobacco Use Types Packs/Day [...] EDT Office Visit Radiation Oncology at [address] [phone] Taya De La Vega PA [facility] DR [place] [address] 11/13/2024 2:00 PM EDT Office Visit Hematology/Oncology at [address] [phone] Kirt Kennedy MD [facility] DR [place] [address] Alem Lazaro APRN [address] [place] [address] DR HEMATOLOGY AND ONCOLOGY [place], [place] [phone] documented as of this encounter Visit Diagnoses Diagnosis Nephrolithiasis Calculus of kidney documented in this encounter Care Teams Rouge Presser Relationship Specialty Start Date End Date Amanda Pino PA [address] [place] [address] PCP - General Internal Medicine 04/28/23 documented as of this encounter
--- OUTSIDE RECORDS SUMMARY | 2024-07-08 01:31 | XMS_ITS | Encounter Summary ---
Author Organization [facility] Address [facility] [place] [address] Care Team Providers Care Postmaster Name Role Phone Amanda Pino Primary Care Provider [phone] Encounter Details Date Type Department Care Team (Late st Contact Info) Description 10/18/2023 [place] [phone] Rajinedr Melvin MD [facility] [place] [address] Social History Tobacco Use Types Packs/Day Years [...] days of cephalexin to Danny Patino in [facility]. Rajinder Melvin MD 10/18/2023 documented in this encounter Plan of Treatment Upcoming Encounters Date Type Department Care Team (Late st Contact Info) Description 11/09/2024 10:30 AM EDT Office Visit Radiation Oncology at [address] [phone] Taya De La Vega PA [facility] DR HEMATOLOGY [place] [address] 11/13/2024 2:00 PM EDT Office Visit Hematology/Oncology at [address] [phone] Kirt Kennedy MD [facility] DR HEMATOLOGY [place] [address] Alem Lazaro APRN [address] [place] [address] [place] [address] documented as of this encounter Visit Diagnoses Not on filedocumented in this encounter Care Teams Postmaster Relationship Specialty Start Date End Date Amanda Pino PA [address] [place] [address] PCP - General Internal Medicine 04/28/23 documented as of this encounter
--- OUTSIDE RECORDS SUMMARY | 2024-07-08 01:31 | XMS_ITS | Encounter Summary ---
Author Organization [facility] [place] [address] Care Team Providers Care Retail Cosmetics Sales Beauty Advisor Name Role Phone Amanda Pino Primary Care Provider [phone] Reason for Visit * Auth/Cert (Routine) Specialty Diagnoses / Procedures Referred By Contaryan t Referred To Contact Diagnoses RIGHT STONE Procedures PRO PERQ NL/PL LITHOTRIPSY COMPLEX >2 CM CHEMICAL PROCESS EQUIPMENT OPERATOR LOCATIONS PRO PLMT NEPHROSTOMY CATH PRQ [...] MODIFIER HOLMIUM LASER Adan Navarrete Jr., MD [facility] [place] [address] [facility] Referral ID Status Reason Start Date Expiration Date Visits Re quested Visits Authorized [id number] 1 1 Encounter Details Date Type Department Care Team (Late st Contact Info) Description 10/21/2023 12:36 PM EST Anesthesia [place] [address] [facility] [place] [address]RNA [facility] [place] [address] Anesthesia Record Procedure Summary Procedure Name Responsible [...] Secured at Teeth: 23 cm; Inserted by: Arimn; Removal Date: 10/21/23; Removal Time: 17010/21/23 1252 [...] Procedure Summary Date: 10/21/23 Room / Location: [facility] OR [address] [place] [address] MAIN OR Anesthesia Start: 1236 Anesthesia Stop: [...] All Anesthesia Providers: Anesthesiologist: Marisol Funez MD LOADING UNIT OPERATOR POWDER CHARGING: Oriana Guzman CRNA Vitals Value Taken Time BP 120/71 10/21/23 1900 Temp 36.1 ??C (97 ??F) 10/21/23 1830 Pulse 59 10/21/23 1834 Resp 17 10/21/23 1834 SpO2 98 % 10/21/231957 Pain Level 3 10/21/231927 Vitals shown include unfiled device data. Patient Location: PACU/[facility] Level of Consciousness: Conscious but Sleepy [...] [facility] Dr Ko ? ? PRO CYSTO W URETEROSCOPY &/OR PYELOSCOPY, DX Right 08/05/2023 CYSTOURETEROSCOPY, DIAGNOSTIC (WRVU 5.75) performed by Adan Navarrete Jr., MD at [facility] MAIN OR ??? PRO CYSTO/URETEROSCOPY W/LITHOTRIPSY INC INDWELLING STENT INSERTION Left 08/05/2023 CYSTOURETEROSCOPY,DIAGNOSTIC,W/ LITHOTRIPSY INC. INSERTION OF INDWELLING URETERAL STENT (WRVU 8) performed by Adan Navarrete Jr., MD at [facility] MAIN OR ??? PRO CYSTOSCOPY, INSERT URETERAL STENT Right 08/05/2023 CYSTO, STENT PLACEMENT (WRVU 2.82) performed by Adan Navarrete Jr., MD at [facility] MAIN OR ??? PROSTATE BIOPSY 11/23/2019 Social [...] risks discussed with patient. Plan discussed with LOADING UNIT OPERATOR POWDER CHARGING. Anesthesia Screening documented in this encounter Plan of Treatment Upcoming Encounters Date Type Department Care Team (Late st Contact Info) Description 11/09/2024 10:30 AM EDT Office Visit Radiation Oncology at [address] [phone] [address] [facility] DR [place]EMATOLOGY [place] [address] 11/13/2024 2:00 PM EDT Office Visit Hematology/Oncology at [address] [phone] [facility] DR HEMATOLOGY [place] [address] Alem Lazaro APRN [address] [place] [address] DR HEMATOLOGY AND ONCOLOGY [place], [place] [address] documented as of this encounter Visit Diagnoses Not on filedocumented in this encounter Administered Medications Inactive Administered Medications - up to 3 most recent administrations Medication Order MAR Action Action Date Dose Rate Site ceFAZolin (Ancef) 2 g vial attach to sodium chloride 0.9% 100 mL Mini-Bag Plus 2 g, Intravenous, FINANCE ASSISTANT TO O.R., 1 dose, On Brisa [...] 0.9% 200 mL infusion 400 mg, Intravenous, FINANCE ASSISTANT TO O.R., 1 dose, On Brisa [...] mg documented in this encounter Care Teams Retail Cosmetics Sales Beauty Advisor Relationship Specialty Start Date End Date Amanda Pino PA [address] [place] [address] PCP - General Internal Medicine 04/28/23 documented as of this encounter
--- OUTSIDE RECORDS SUMMARY | 2024-07-08 01:31 | XMS_ITS | Encounter Summary ---
Author Organization [facility] [place] [address] Care Team Providers Care Veneer Sorter Name Role Phone Amanda Pino Primary Care Provider [phone] Encounter Details Date Type Department Care Team (Late st Contact Info) Description 10/15/2023 Telephone Urology at [facility] [place] [phone] Perla Vail, RN Social History Tobacco Use [...] he will go to local lab in [facility]. documented in this encounter Miscellaneous Notes * Telephone Encounter - Perla Vail RN - 10/15/2023 1:33 PM EST Copied from [facility] #[id number]. Topic: Specialty Dept CRMs - Triage >> [...] EDT Office Visit Radiation Oncology at [address] [phone] Taya De La Vega PA [facility] [place] [address] 11/13/2024 2:00 PM EDT Office Visit Hematology/Oncology at [address] [phone] Kirt Kennedy MD [facility] HEMATOLOGY [place] [address] Alem Lazaro APRN [address] [place] [address] DR [place]EM[place]OLOGY [place] [address] documented as of this encounter Visit Diagnoses Diagnosis Nephrolithiasis Calculus of kidney documented in this encounter Care Teams Veneer Sorter Relationship Specialty Start Date End Date Amanda Pino PA [address] [place] [address] PCP - General Internal Medicine 04/28/23 documented as of this encounter
--- OUTSIDE RECORDS SUMMARY | 2024-07-08 01:31 | XMS_ITS | Encounter Summary ---
Author Organization [facility] [place] [address] Care Team Providers Care Giant Tire Repairer Name Role Phone Amanda Pino Primary Care Provider [phone] Encounter Details Date Type Department Care Team (Late Contact Info) Description 05/21/2023 [place] [phone] None None Social History Tobacco Use Types [...] EDT Office Visit Radiation Oncology at [address] [phone] Taya De La Vega PA [facility] DR [place] [address] 11/13/2024 2:00 PM EDT Office Visit Hematology/Oncology at [address] [phone] Kirt Kennedy MD [facility] DR [place] [address] Alem Lazaro APRN [address] [place] [address] DR [place] [address] documented as of this encounter Visit Diagnoses Not on filedocumented in this encounter Care Teams Giant Tire Repairer Relationship Specialty Start Date End Date Amanda Pino PA [address] [place] [address] PCP - General Internal Medicine 04/28/23 documented as of this encounter
--- OUTSIDE RECORDS SUMMARY | 2024-07-08 01:32 | XMS_ITS | Encounter Summary ---
[place] [address] Care Team Providers Care Scaffolding Helper Name Role Phone Amanda Pino Primary Care Provider [phone] Reason for Referral * Consultation (Routine) - Closed Specialty Diagnoses / Procedures Referred By Contac t Referred To Contact Urology Diagnoses Calculus of kidney Amanda Pino PA [address] [place] [address] [facility] [place] [address] Referral ID Status Reason Start Date Expiration Date V isits Requested Visits Authorized [id number] Closed Consult, Test & Treat PCP Updated and/or Approved 04/23/2023 10/20/[phone] Encounter Details Date Type Department Care Team (Late st Contact Info) Description 04/28/2023 Transcribe Orders eDH Incoming Referrals [phone] Amanda Pino PA [address] [place] [address] Calculus of kidney Social History Tobacco Use [...] EDT Office Visit Radiation Oncology at [address] [phone] Taya De La Vega PA [facility] DR [place] [address] 11/13/2024 2:00 PM EDT Office Visit Hematology/Oncology at [address] [phone] Kirt Kennedy MD [facility] DR [place] [address] Alem Lazaro APRN [address] [place] [address] DR HEMATOLOGY AND ONCOLOGY [place], [place] [phone] Scheduled Referrals Name Type Priority Associated Diagnoses Orde r Schedule Referral to Urology Outpatient Referral Routine Calculus of kidney Ordered: 04/28/2023 documented as of this encounter Visit Diagnoses Diagnosis Calculus of kidney documented in this encounter Care Teams Scaffolding Helper Relationship Specialty Start Date End Date Amanda Pino PA [address] [place] [address] PCP - General Internal Medicine 04/28/23 documented as of this encounter
--- OUTSIDE RECORDS SUMMARY | 2024-07-08 01:32 | XMS_ITS | Encounter Summary ---
Author Organization [facility] Address [facility] [place] [address] Care Team Providers Care Fashion Buyer Name Role Phone Alfredo Montoya DO Primary Care Provider [phone] Encounter Details Date Type Department Care Team (Late st Contact Info) Description 10/23/2021 10:15 AM EST Office Visit Radiation Oncology at [address] [phone] Jen Eugene APRN [facility] [place] [address] Malignant neoplasm of prostate (Primary Dx) Social [...] this encounter Progress Notes * Jen Eugene, TUBE REPAIRER - 10/23/2021 10:15 AM ESTSummary: 76 year old M dx Unfavorable Intermediate-Risk Prostate Cancer. Compl xrt 04/26/20 [facility] [place] [address] Phone: RADIATION ONCOLOGY FOLLOW UP NOTE Date [...] Prior consultations / recommendations: Dr Thomas - [facility] - 12/01/19 - options of , RP, RT reviewed. Patient interested in learning more about RT. Referral placed.? PSA History:?? 11/03/19 - 12.9 ?? Pathology Results / Location:?? TRUS Bx 11/23/19 ([facility]) - ?Gl 4+3 x 1 [...] pt and describe urosepsis admission to [facility]. Since recovering he has been successful in keeping the catheter out and voids on his own. He still does wake up at [facility] to void x 3 and is still taking one tamsulosin. He is also on prazosin which is prescribed by [facility]. I am uncertain if that is for [...] today's visit: General:Related how he went to [facility] for CT scan and they did not use contrast so had to cancel his appt and reschedule. 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 Follows with [facility] neurology no longer on ASA Mood: Usually [...] and cranial bleed, urosepsis and multiple other [facility] managed health issues that reflects keep setting him back. His motivation is low. Had urosepsis in Jun 2021 and in-pt tx at [facility]. Cath removed and he is [...] bleed He was treated for this in [place]. He has a neurologist locally at [facility]. No new focal deficits but memory is an issue. His next prostate cancer followup will be in six months with PSA and testosterone prior to visit. ?? Mr and Mrs. Eduarod had the opportunity to ask questions and [...] the radiation therapy/prostate cancer Jen Eugene MSN, TUBE REPAIRER, MEDICAL BILLING AND CODING SPECIALIST-C Nurse Practitioner Radiation Oncology documented in this encounter Plan of Treatment Upcoming Encounters Date Type Department Care Team (Late st Contact Info) Description 11/09/2024 10:30 AM EDT Office Visit Radiation Oncology at [address] [phone] Taya De La Vega PA [facility] [place] [address] 11/13/2024 2:00 PM EDT Office Visit Hematology/Oncology at [address] [phone] Kirt Kennedy MD [facility] HEMATOLOGY [place] [address] Alem Lazaro APRN [address] [place] [address] DR [place] [address] documented as of this encounter Visit Diagnoses Diagnosis Malignant neoplasm of prostate- Primary documented in this encounter Care Teams Fashion Buyer Relationship Specialty Start Date End Date Alfredo Montoya DO [address] [place] [address] PCP - General Internal Medicine 12/04/19 04/27/23 documented as of this encounter
--- OUTSIDE RECORDS SUMMARY | 2024-07-08 01:32 | XMS_ITS | Encounter Summary ---
Author Organization [facility] Address [facility] [place] [address] Care Team Providers Care Pattern Carrier Name Role Phone Jan Alfredo Jorge GARDNER Primary Care Provider [phone] Encounter Details Date Type Department Care Team (Late Contact Info) Description 04/16/2023 Ancillary Procedure Radiology Library at [facility] [phone] Adan Navarrete Jr., MD [facility] [place] [address] Social History Tobacco Use Types Packs/Day Years [...] EDT Office Visit Radiation Oncology at [address] [phone] Taya De La Vega PA [facility] HEMATOLOGY [place] [address] 11/13/2024 2:00 PM EDT Office Visit Hematology/Oncology at [address] [phone] Kirt Kennedy MD [facility] DR H[place]ATOLOGY [place] [address] Alem Lazaro, [address] HEMATOLOGY AND ONCOLOGY [place], [place] [address] documented as of this encounter Procedures Procedure Name Priority Date/Time Associated Diagnosis Comments FILM LIBRARY STORAGE ONLY CT ABDOMEN AND PELVIS Routine 04/16/2023 12:00 AM EDT documented in this encounter Results * Film Library- Storage Only CT Abdomen & Pelvis (04/16/2023 12:00 AM EDT) Narrative [facility] - 09/13/2023 6:15 PM EST This exam is auto-finalizing. It's purpose is for storage only. Adan Navarrete Jr., MD IMG FILM LIBRARY O RDERABLES [place], [place] documented in this encounter Visit Diagnoses Not on filedocumented in this encounter Care Teams Pattern Carrier Relationship Specialty Start Date End Date Alfredo Montoya DO [address] [place] [address] PCP - General Internal Medicine 12/04/19 04/27/23 documented as of this encounter
--- OUTSIDE RECORDS SUMMARY | 2024-07-08 01:32 | XMS_ITS | Encounter Summary ---
Author Organization [facility] Address [facility] [place] [address] Care Team Providers Care Top Bottom Attaching Machine Operator Name Role Phone Alfredo Montoya DO Primary Care Provider [phone] Encounter Details Date Type Department Care Team [...] EDT Office Visit Radiation Oncology at [address] [phone] Taya De La Vega PA [facility] DR HEMATOLOGY [place] [address] 11/13/2024 2:00 PM EDT Office Visit Hematology/Oncology at [address] [phone] Kirt Kennedy MD [facility] DR HEMATOLOGY [place] [address] Alem Lazaro APRN [address] [place] [address] DR HEMATOLOGY [place] [address] documented as of this encounter Visit Diagnoses Not on filedocumented in this encounter Care Teams Top Bottom Attaching Machine Operator Relationship Specialty Start Date End Date Alfredo Montoya DO [address] [place] [address] PCP - General Internal Medicine 12/04/19 04/27/23 documented as of this encounter
--- OUTSIDE RECORDS SUMMARY | 2024-07-08 01:32 | XMS_ITS | Encounter Summary ---
Author Organization [facility] Address [facility] [place] [address] Care Team Providers Care Assessment Director Name Role Phone Jan Alfredo Patel DO Primary Care Provider [phone] Encounter Details Date Type Department Care Team (Late st Contact Info) Description 05/13/2021 Telephone Neurosurgery at [facility] [place] [phone] Silvia Zapata APRN [facility] [address] Social History Tobacco Use Types Packs/Day Years [...] EDT Called pt, spoke to Mrs. Eduardo, [facility] has been approved [facility] she is going to call [facility] to schedule CTH and f/u with Dr. Ramires who is now back. I transferred her to Neuro to cancel Dr. Astudillo's appt and provided her with HIS release of info # Pt wishes not to f/u with NS in [place] he will f/u locally with [facility] * Telephone Encounter - Sangeeta Pino - 06/12/2021 9:[address] [facility] last CTH done 04/02 for [facility] re: status of scheduling CTH at [facility] * Telephone Encounter - Sangeeta Pino - 06/04/2021 2:[address] order and BCB ov note to [facility] [phone] To [address] C[address] at [facility] * Telephone Encounter - Sangeeta Pino - 05/16/2021 12:05 PM EDT Faxed [facility] to request new referral so CT may be scheduled=05/16 * Telephone Encounter - Sangeeta Pino - 05/13/2021 2:51 PM EDT Called =LM at [facility] to update referral for NS, end of February Faxed CT order to [facility] to schedule in 3 weeks. [...] next 3-4 weeks to be done in [place]. Mr Jayce or his will call if he has any falls, worsening headache or neurologic deficits in meantime. documented in this encounter Plan of Treatment Upcoming Encounters Date Type Department Care Team (Late st Contact Info) Description 11/09/2024 10:30 AM EDT Office Visit Radiation Oncology at [address] [phone] Taya De La Vega PA [facility] DR [place] [address] 11/13/2024 2:00 PM EDT Office Visit Hematology/Oncology at [address] [phone] Kirt Kennedy MD [facility] DR [place] [address] Alem Lazaro APRN [address] [place] [address] DR HEMATOLOGY AND ONCOLOGY [place], [place] [phone] documented as of this encounter Visit Diagnoses Diagnosis SDH (subdural hematoma) Subdural hemorrhage documented in this encounter Care Teams Assessment Director Relationship Specialty Start Date End Date Alfredo Montoya DO [address] [place] [address] PCP - General Internal Medicine 12/04/19 04/27/23 documented as of this encounter
--- OUTSIDE RECORDS SUMMARY | 2024-07-08 01:32 | XMS_ITS | Encounter Summary ---
Author Organization [facility] Address [facility] [place] [address] Care Team Providers Care Break And Load Operator Name Role Phone Alfredo Montoya DO Primary Care Provider [phone] Encounter Details Date Type Department Care Team (Late st Contact Info) Description 02/27/2021 Telephone General Surgery at [facility] [place] [phone] Charleen Clement RN Social History Tobacco Use [...] EDT Office Visit Radiation Oncology at [address] [phone] Taya De La Vega PA [facility] DR HEMATOLOGY [place] [address] 11/13/2024 2:00 PM EDT Office Visit Hematology/Oncology at [address] [phone] Kirt Kennedy MD [facility] DR HEMATOLOGY [place] [address] Alem Lazaro APRN [address] [place] [address] DR HEMATOLOGY AND ONCOLOGY [place], [place] [phone] documented as of this encounter Visit Diagnoses Not on filedocumented in this encounter Care Teams Break And Load Operator Relationship Specialty Start Date End Date Alfredo Montoya DO [address] [place] [address] PCP - General Internal Medicine 12/04/19 04/27/23 documented as of this encounter
--- OUTSIDE RECORDS SUMMARY | 2024-07-08 01:32 | XMS_ITS | Encounter Summary ---
Author Organization [facility] Address [facility] [place] [address] Care Team Providers Care In Home Caregiver Name Role Phone Alfredo Montoya DO Primary Care Provider [phone] Encounter Details Date Type Department Care Team (Late st Contact Info) Description 10/22/2022 1:00 PM EST Office Visit Radiation Oncology at [address] [phone] Jen Eugene APRN [facility] [place] [address] Malignant neoplasm of prostate (Primary Dx) Social [...] this encounter Progress Notes * Jen Eugene, FEATHER MAKER - 10/22/2022 1:00 PM ESTSummary: 77 year old M dx Unfavorable Intermediate-Risk Prostate Cancer. Compl xrt 04/26/20 [facility] [place] [address] Phone: RADIATION ONCOLOGY FOLLOW UP NOTE Date of visit: 10/13/2022 Patient Narcisa Eduardo 1945 PCP: Alfredo Montoya DO Urologist: Charleen Torres MD//also went to [facility] Urology Radiation oncologist: Dr Que Evans [...] Prior consultations / recommendations: Dr Thomas - [facility] - 12/01/19 - options of , RP, RT reviewed. Patient interested in learning more about RT. Referral placed.? PSA History:?? 11/03/19 - 12.9 ?? Pathology Results / Location:?? TRUS Bx 11/23/19 ([facility]) - ?Gl 4+3 x 1 - [...] 2021 pt and describe urosepsis admission to [facility]. Since recovering he has been successful in keeping the catheter out and voids on his own. He still does wake up at [facility] to void x 2-3x and MD at [facility] took him off the prazosin (for [...] local hospital. This ends up being to [facility]. They would favor going to [facility] but the ambulance must deliver himto [...] ??? COLONOSCOPY 2011 date is approximate. at [facility] Dr Ko ??? PROSTATE BIOPSY [...] ??? COLONOSCOPY 2011 date is approximate. at [facility] Dr Ko ??? PROSTATE BIOPSY [...] head on pavement. Aneurysm found. Follows [place] [facility] neurolog[place] no longer on [...] urosepsis (last spring 2021) and multiple other [place] managed health issues [...] was in November 2021 in-pt tx at [facility]. Cath was removed and he is able [...] bleed He was treated for this in [place]. He has a neurologist locally at [facility]. No new focal deficits but memory can sometimes be an issue. His next prostate cancer followup will be in six months with PSA and testosterone prior to visit. He and live near [facility] and are happy to come [...] the radiation therapy/prostate cancer Jen Eugene MSN, FEATHER MAKER, JUNIOR SYSTEMS ANALYST-C Nurse Practitioner Radiation Oncology documented in this encounter Plan of Treatment Upcoming Encounters Date Type Department Care Team (Late st Contact Info) Description 11/09/2024 10:30 AM EDT Office Visit Radiation Oncology at [address] [phone] Taya De La Vega PA [facility] [place] [address] 11/13/2024 2:00 PM EDT Office Visit Hematology/Oncology at [address] [phone] Kirt Kennedy MD [facility] [place] [address] Alem Lazaro APRN [address] [place] [address] DR HEMATOLOGY AND ONCOLOGY [place], [place] [id number] documented as of this encounter Visit Diagnoses Diagnosis Malignant neoplasm of prostate- Primary documented in this encounter Care Teams In Home Caregiver Relationship Specialty Start Date End Date Alfredo Montoya DO [address] [place] [address] PCP - General Internal Medicine 12/04/19 04/27/23 documented as of this encounter
--- OUTSIDE RECORDS SUMMARY | 2024-07-08 01:32 | XMS_ITS | Encounter Summary ---
Author Organization [facility] Address [facility] [place] [address] Care Team Providers Care Bowling Alley Floors Installer Name Role Phone Alfredo Montoya DO Primary Care Provider [phone] Reason for Referral * Diagnostic Test (Routine) - Closed Specialty Diagnoses / Procedures Referred By Contac t Referred To Contact Radiology Diagnoses Intracranial bleed Procedures CT Head wo Contrast (Generic) Linnea Muhammad PA [facility] [place] [address] [facility] [place] [address] Referral ID Status Reason Start Date Expiration Date V isits Requested Visits Authorized [id number] Closed Specialty Service Requested 09/18/2020 03/17/2021 1 1 Reason for Visit * Diagnostic Test (Routine) - Closed Specialty Diagnoses / Procedures Referred By Contac t Referred To Contact Radiology Diagnoses Intracranial bleed Procedures CT Head wo Contrast (Generic) Linnea Muhammad PA [facility] [place] [address] [facility] [place] [address] Referral ID Status Reason Start Date Expiration Date V isits Requested Visits Authorized [id number] Closed Specialty Service Requested 09/18/2020 03/17/2021 1 1 Encounter Details Date Type Department Care Team (Latest Contact Info) Description 03/14/2021 9:04 AM EDT - 03/14/2021 11:59 PM EDT Hospital Encounter CT Scan at [facility] [place] [address] Damian Vazquez MD [facility] [place] [address] Intracranial bleed Discharge Disposition: Home Social History [...] EDT Office Visit Radiation Oncology at [address] [phone] Taya De La Vega PA [facility] DR HEMATOLOGY [place] [address] 11/13/2024 2:00 PM EDT Office Visit Hematology/Oncology at [address] [phone] Kirt Kennedy MD [facility] DR HEMATOLOGY [place] [address] Alem Lazaro APRN [address] [place] [address] DR HEMATOLOGY AND ONCOLOGY [place], [place] [phone] documented as of this encounter Procedures Procedure [...] Unchanged left subdural hygroma with similar fashion [id number]-[id number] midline shift compared to prior CT. 2. [...] have questions please contact the health medicare specialist that requested your imaging first. ? [...] Unchanged left subdural hygroma with similar fashion uocc-qc-iwrvwmireluj shift compared to prior CT. 2. Expected [...] who have questions please contactthe health medicare specialist that requested your imaging first. Damian Vazquez MD IMG CT ORDERABLES documented in this encounter Visit Diagnoses Diagnosis Intracranial bleed Unspecified intracranial hemorrhage documented in this encounter Care Teams Bowling Alley Floors Installer Relationship Specialty Start Date End Date Alfredo Montoya DO [address] [place] [address] PCP - General Internal Medicine 12/04/19 04/27/23 documented as of this encounter
--- OUTSIDE RECORDS SUMMARY | 2024-07-08 01:32 | XMS_ITS | Encounter Summary ---
Author Organization [facility] [place] [address] Care Team Providers Care Body Maker Name Role Phone Alfredo Montoya DO Primary Care Provider [phone] Encounter Details Date Type Department Care Team (Latest Contact Info) Description 04/23/2022 11:00 AM EDT TH Visit (TeleHealth) Radiation Oncology at [address] [phone] Jen Eugene, CYLINDER TESTER [facility] [place] [address] Malignant neoplasm of prostate (Primary Dx) Social [...] Unfavorable Intermediate-Risk Prostate Cancer. Compl xrt 04/26/20 [facility] [place] [address] Phone: RADIATION ONCOLOGY FOLLOW UP NOTE Date of visit: 04/22/2022 Patient Narcisa Eduardo 1945 PCP: Alfredo Montoya DO Urologist: Charleen Torres MD//also went to [facility] Urology Radiation oncologist: Dr Que Evans Chief [...] November pt and describe urosepsis admission to [facility]. Since recovering he has been successful in keeping the catheter out and voids on his own. He still does wake up at [facility] to void x 2-3x and MD at [facility] took him off the prazosin (for [...] after that he will sleep through the [facility]. Narcisa agrees with this assessment. No hematuria, has had chronic UTIs. Does not hydrate well per . Unfortunately, he has had episodes of urosepsis and these have led to seizure activity and need for ambulance ride to local hospital. This ends up being to [facility]. They would favor going to [facility] but the ambulance must deliver [...] 2011 [address] [facility] Dr Ko ??? PROSTATE BIOPSY [...] 2011 [address] [facility] Dr Ko ??? PROSTATE BIOPSY [...] head on pavement. 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 Follows with [facility] neurology no longer on ASA. Mood: Usually [...] in November 2021 in-pt tx at [facility]. Cath removed and he is able to [...] bleed He was treated for this in [place]. He has a neurologist locally at [facility]. No new focal deficits but memory can sometimes be an issue. His next prostate cancer followup will be in six months with PSA and testosterone prior to visit. He and live near [facility] and are happy to come for f2f. [...] the radiation therapy/prostate cancer Jen Eugene MSN, CYLINDER TESTER, GRINDING MACHINE TENDER-C Nurse Practitioner Radiation Oncology documented in this encounter Plan of Treatment Upcoming Encounters Date Type Department Care Team (Late st Contact Info) Description 11/09/2024 10:30 AM EDT Office Visit Radiation Oncology at [address] [phone] Taya De La Vega PA [facility] [place] [address] 11/13/2024 2:00 PM EDT Office Visit Hematology/Oncology at [address] [phone] Kirt Kennedy MD [facility] DR [place] [address] Alem Lazaro APRN [address] [place] [address] DR HEMATOLOGY AND ONCOLOGY [place], [place] [id number] documented as of this encounter Visit Diagnoses Diagnosis Malignant neoplasm of prostate- Primary documented in this encounter Care Teams Body Maker Relationship Specialty Start Date End Date Alfredo Montoya DO [address] [place] [address] PCP - General Internal Medicine 12/04/19 04/27/23 documented as of this encounter
--- OUTSIDE RECORDS SUMMARY | 2024-07-08 01:32 | XMS_ITS | Encounter Summary ---
Author Organization [facility] Address [facility] [place] [address] Care Team Providers Care Corporate Operations Compliance Manager Name Role Phone Alfredo Montoya DO Primary Care Provider [phone] Encounter Details Date Type Department Care Team (Late st Contact Info) Description 11/16/2022 3:00 PM EDT Office Visit Hematology/Oncology at [address] [phone] Kirt Kennedy MD [facility] DR [place] [address] Alem Lazaro APRN [address] [place] [address] DR HEMATOLOGY [place] [address] Follicular lymphoma, unspecified grade, unspecified [...] original note were not included[place] [address] [phone] Narcisa Eduardo is being seen for the evaluation of follicular lymphoma. Assessment & Plan: Narcisa Eduardo is a 77 y.o. male patient with a PMH of an abdominal aortic aneurysm, thoracic aortic aneurysm, hypertension, prior alcohol abuse, tobacco abuse, a stroke in early 2019 and follicular lymphoma who completed EBRT for localized prostate cancer 04/2020 who wishes to followup here in [facility] for his lymphoma rather than at the [place] given the proximity to his home. He [...] Kirt Kennedy MD, MS 11/16/2022 Thoracic Oncology [facility] CC: Alfredo Montoya, Jen Jabier DRY ROLLER HPI/Interval History/Subjective: Last seen November 2021 Accompanied [...] but can't do it any more. service: [employer]. [place] Era. Had Agent [place] Exposure. 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 Treated at the [facility] by Dr. Martha Castañeda - PET-CT 11/26/15 [...] (he opted to not receive ADT) at [facility] with Dr. Evans 02/26-04/26/20 97.2 Gy in 44 fractions PMH: 1. AAA - Abdominal aortic aneurysm 2. Thoracic aortic aneurysm without rupture 3. Follicular non-Hodgkin lymphoma, small cleaved cell 4. Tobacco dependence 5. Alcohol dependence 6. Hypertension 7. Family history of prostate cancer 8. Family history of malignant neoplasm of breast 9. Personal History of Exposure to Agent [place] View : No data to display. Patient [...] cell count normal at 6.0, hemoglobin 14.7 [id number] absolute neutrophil count 4.6 absolute lymphocyte count [...] inguinal node 03/18/15; [place] [facility] [place] - Follicular lymphoma NOTE: Sections [...] EDT Office Visit Radiation Oncology at [address] [phone] Taya De La Vega PA [facility] DR [place] [address] 11/13/2024 2:00 PM EDT Office Visit Hematology/Oncology at [address] [phone] Kirt Kennedy MD [facility] DR [place] [address] Alem Lazaro APRN [address] [place] [address] DR HEMATOLOGY AND ONCOLOGY [place], [place] [id number] Scheduled Orders Name Type Priority Associated Diagnoses [...] prostate documented in this encounter Care Teams Corporate Operations Compliance Manager Relationship Specialty Start Date End Date Alfredo Montoya DO [address] [place] [address] PCP - General Internal Medicine 12/04/19 04/27/23 documented as of this encounter
--- OUTSIDE RECORDS SUMMARY | 2024-07-08 01:32 | XMS_ITS | Encounter Summary ---
Author Organization [facility] Address [facility] [place] [address] Care Team Providers Care Receiver Dispatcher Name Role Phone Alfredo Montoya DO Primary Care Provider Encounter Details Date Type Department Care Team (Late st Contact Info) Description 04/02/2021 Ancillary Procedure Radiology Library [place] [address] Silvia Zapata APRN [facility] [place] [address] Social History Tobacco Use Types Packs/Day Years [...] EDT Office Visit Radiation Oncology at [address] [phone] Taya De La Vega PA [facility] HEMATOLOGY [place] [address] 11/13/2024 2:00 PM EDT Office Visit Hematology/Oncology at [address] [phone] Kirt Kennedy MD [facility] DR [place] [address] Alem Lazaro APRN [address] [place] [address] [place] [address] documented as of this encounter Procedures Procedure Name Priority Date/Time Associated Diagnosis Comments FILM LIBRARY STORAGE ONLY CT HEAD Routine 04/02/2021 12:00 AM EDT documented in this encounter Results * Film Library- Storage Only CT Head (04/02/2021 12:00 AM EDT) Narrative [facility] - 05/08/2021 9:07 PM EDT This exam is auto-finalizing. It's purpose is for storage only. Silvia Zapata APRN IMG FILM LIBRARY ORDERABLES Performing Organization Address City/State/[facility] Co de Phone Number [place], [place] documented in this encounter Visit Diagnoses Not on filedocumented in this encounter Care Teams Receiver Dispatcher Relationship Specialty Start Date End Date Alfredo Montoya DO [address] [place] [address] PCP - General Internal Medicine 12/04/19 04/27/23 documented as of this encounter
--- OUTSIDE RECORDS SUMMARY | 2024-07-08 01:32 | XMS_ITS | Encounter Summary ---
Author Organization [facility] Address [facility] [place] [address] Care Team Providers Care Spring Former Hand Name Role Phone Alfredo Montoya DO Primary Care Provider [phone] Encounter Details Date Type Department Care Team [...] EDT Office Visit Radiation Oncology at [address] [phone] [address] [facility] DR HEMATOLOGY [place] [address] 11/13/2024 2:00 PM EDT Office Visit Hematology/Oncology at [address] [phone] [facility] DR HEMATOLOGY [place] [address] Alem Lazaro APRN [address] [place] [address] DR [place] [address] documented as of this encounter Visit Diagnoses Not on filedocumented in this encounter Care Teams Spring Former Hand Relationship Specialty Start Date End Date Alfredo Montoya DO [address] [place] [address] PCP - General Internal Medicine 12/04/19 04/27/23 documented as of this encounter
--- OUTSIDE RECORDS SUMMARY | 2024-07-08 01:32 | XMS_ITS | Encounter Summary ---
Author Organization [facility] Address [facility] [place] [address] Care Team Providers Care Hairspring Studder Name Role Phone Alfredo Montoya DO Primary Care Provider [phone] Encounter Details Date Type Department Care Team (Late st Contact Info) Description 11/03/2021 2:30 PM EDT Office Visit Hematology/Oncology at [address] [phone] Kirt Kennedy MD [facility] DR HEMATOLOGY [place] [address] Martha Card, RN Malignant neoplasm of prostate; [...] original note were not [place] [address] [phone] Narcisa Eduardo is being seen for the evaluation of follicular lymphoma. Assessment & Plan: Narcisa Eduardo is a 76 y.o. male patient with a PMH of an abdominal aortic aneurysm, thoracic aortic aneurysm, hypertension, prior alcohol abuse, tobacco abuse, a stroke in early 2019 and follicular lymphoma who completed EBRT for localized prostate cancer 04/2020 who wishes to followup here in [facility] for his lymphoma rather than [...] Kirt Kennedy MD, MS 11/03/2021 Thoracic Oncology [facility] CC: Alfredo Montoya, DO Jen Eugene TITLE INSPECTOR HPI/Interval History/Subjective: Accompanied by his . Has some urinary hesitancy and frequency. Frequent nocturia. No weight loss though has had difficulty gaining weight. Was working with nutrition at the [facility] No fevers or infections. No night sweats. [...] but can't do it any more. service: [email or web address]. [place] Era. Had Agent [place] Exposure. He is service connected for both [...] 9. Personal History of Exposure to Agent [place] No flowsheet data found. Patient Active Problem [...] cell count normal at 6.0, hemoglobin 14.7 [id number] absolute neutrophil count 4.6 absolute lymphocyte count [...] left inguinal node 03/18/15; [place] [facility] [place] - Follicular lymphoma NOTE: [...] EDT Office Visit Radiation Oncology at [address] [phone] Taya De La Vega PA [facility] HEMATOLOGY [place] [address] 11/13/2024 2:00 PM EDT Office Visit Hematology/Oncology at [address] [phone] Kirt Kennedy MD [facility] HEMATOLOGY [place] [address] Alem Lazaro APRN [address] [place] [address] DR [place] [address] documented as of this encounter Visit Diagnoses Diagnosis Malignant neoplasm of prostate Follicular lymphoma, unspecified grade, unspecified body region documented in this encounter Care Teams Hairspring Studder Relationship Specialty Start Date End Date Alfredo Montoya DO [address] [place] [address] PCP - General Internal Medicine 12/04/19 04/27/23 documented as of this encounter
--- OUTSIDE RECORDS SUMMARY | 2024-07-08 01:32 | XMS_ITS | Encounter Summary ---
Author Organization [facility] Address [facility] [place] [address] Care Team Providers Care Drill Press Tender Name Role Phone Alfredo Montoya DO Primary Care Provider [phone] Reason for Visit * Reason Onset Date Comments Other 03/17/2021 Encounter Details Date Type Department Care Team (Late st Contact Info) Description 03/17/2021 [place] [phone] Silvia Zapata, [facility] [place] [address] Other Social History Tobacco Use Types Packs/Day [...] fax report to us. Faxing [facility] push request for images for [facility] to review. * Telephone Encounter - Jesi Magallanes - 03/28/2021 12:00 PM EDT Roxy Garcia RN at [facility] is calling to speak about the patients CT. Rx[facility] is asking if the CT is to be done with or without contrast. Please contact [place] to discuss further. * Telephone Encounter - Latrice Redmond - 03/17/2021 9:30 AM EDT Spoke with pt and updated safety questions. Pt advised he would like imaging done at [facility] with f/u TOV with [facility]. Imaging order already External.Needs updated authorization from [facility]. Once [facility] is scheduled, call pt to book f/u TOV with [facility]. * Telephone Encounter - Sangeeta Pino - 03/17/2021 8:02 AM EDT Patient needs f/u appointment(s): With [facility] on/around 04/25/21 6 weeks OV or TOV, s/p L Hygroma, parafalcine SDH, tSAH, CT or [facility] Prior * Telephone Encounter - Sangeeta Pino - 03/17/2021 8:02 AM EDT Narcisa Eduardo - 03/14/21 Silvia Zapata APRN Sent: Hua March 15, 2021 ??2:47 PM To: P [facility] Fertilizer Processing Supervisor ?? Follow-up and Dispositions Check-out Note: Follow up head CT 6 weeks - may either be at with in person visit ??or in [place] with TOV Routing History documented in this encounter Plan of Treatment Upcoming Encounters Date Type Department Care Team (Late st Contact Info) Description 11/09/2024 10:30 AM EDT Office Visit Radiation Oncology at [address] [phone] Taya De La Vega PA [facility] DR [place] [address] 11/13/2024 2:00 PM EDT Office Visit Hematology/Oncology at [address] [phone] Kirt Kennedy MD [facility] DR [place] [address] Alem Lazaro APRN [address] [place] [address] DR HEMATOLOGY AND ONCOLOGY [place], [place] [phone] documented as of this encounter Visit Diagnoses Not on filedocumented in this encounter Care Teams Drill Press Tender Relationship Specialty Start Date End Date Alfredo Montoya DO [address] [place] [address] PCP - General Internal Medicine 12/04/19 04/27/23 documented as of this encounter
--- OUTSIDE RECORDS SUMMARY | 2024-07-08 01:32 | XMS_ITS | Encounter Summary ---
Author Organization [facility] Address [facility] [address] Care Team Providers Care Soldering Inspector Name Role Phone Alfredo Montoya DO Primary Care Provider [phone] Reason for Referral * Consultation (Routine) - Closed Specialty Diagnoses / Procedures Referred By Contac t Referred To Contact Wound Care Diagnoses Open wound of right hand without foreign body, unspecified wound type, subsequent encounter Kristi Carey APRN [facility] [place] [address] [facility] [place] [address] Referral ID Status Reason Start Date Expiration Date V isits Requested Visits Authorized [id number] Closed Consult, Test & Treat 03/14/2021 03/14/2022 1 1 Reason for Visit * Reason Comments Follow-up Encounter Details Date Type Department Care Team (Late st Contact Info) Description 03/14/2021 8:30 AM EDT Office Visit [place] [address] Kristi Carey APRN [facility] [place] [address] Open wound of right hand [...] encounter Progress Notes * CherryKristi Mary Kay, CNC TECHNICIAN - 03/14/2021 8:30 AM EDT Narcisa Eduardo [...] Torres' the pt's urologist on 03/21/21 per [facility] notes. His giraldo was kept in place [...] EDT Office Visit Radiation Oncology at [address] [phone] Taya De La Vega PA [facility] DR HEMAT[place]Y [place] [address] 11/13/2024 2:00 PM EDT Office Visit Hematology/Oncology at [address] [phone] Kirt Kennedy MD [facility] DR HEM[place]Y [place] [address] Alem Lazaro APRN [address] [place] [address] DR HEMATOLOGY AND ONCOLOGY [place], [place] [phone] Scheduled Referrals Name Type Priority Associated Diagnoses Orde r Schedule Referral to Wound Clinic Outpatient Referral Routine Open wound of right hand without foreign body, unspecified wound type, subsequent encounter Ordered: 03/14/2021 documented as of this encounter Visit Diagnoses Diagnosis Open wound of right hand without foreign body, unspecified wound type, subsequent encounter documented in this encounter Care Teams Soldering Inspector Relationship Specialty Start Date End Date Alfredo Montoya DO [address] [place] [address] PCP - General Internal Medicine 12/04/19 04/27/23 documented as of this encounter
--- OUTSIDE RECORDS SUMMARY | 2024-07-08 01:32 | XMS_ITS | Encounter Summary ---
Author Organization [facility] Address [facility] [place] [address] Care Team Providers Care Automotive Teacher Name Role Phone Alfredo Monotya DO Primary Care Provider [phone] Encounter Details Date Type Department Care Team (Late st Contact Info) Description 04/24/2021 2:30 PM EDT Office Visit Radiation Oncology at [address] [phone] Jen Eugene APRN [facility] [place] [address] Malignant neoplasm of prostate Social History Tobacco [...] this encounter Progress Notes * Jen Eugene, RAILROAD CAR REPAIR SUPERVISOR - 04/24/2021 1:00 PM EDTSummary: Unfavorable Intermediate-Risk Prostate Cancer [facility] [place] [address] Phone: RADIATION ONCOLOGY FOLLOW UP NOTE Date [...] Prior consultations / recommendations: Dr Thomas - [facility] - 12/01/19 - options of , RP, RT reviewed. Patient interested in learning more about RT. Referral placed.? PSA History:?? 11/03/19 - 12.9 ?? Pathology Results / Location:?? TRUS Bx 11/23/19 ([facility]) - ?Gl 4+3 x 1 - [...] ??? COLONOSCOPY 2011 date is approximate. at [facility] Dr Ko ??? PROSTATE BIOPSY [...] head on pavement. 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 [place] [facility] [place] Mood: sucks because of the sense [...] bleed He was treated for this in [place]. He has a neurologist locally at [facility]. His next prostate cancer followup will [...] the radiation therapy/prostate cancer Jen Eugene MSN, RAILROAD CAR REPAIR SUPERVISOR, FUNERAL HOME GENERAL MANAGER-C Nurse Practitioner Radiation Oncology documented in this encounter Plan of Treatment Upcoming Encounters Date Type Department Care Team (Late st Contact Info) Description 11/09/2024 10:30 AM EDT Office Visit Radiation Oncology at [address] [phone] Taya De La Vega PA [facility] [place] [address] 11/13/2024 2:00 PM EDT Office Visit Hematology/Oncology at [address] [phone] Kirt Kennedy MD [facility] DR [place] [address] Alem Lazaro APRN [address] [place] [address] DR [place] [address] documented as of this encounter Visit Diagnoses Diagnosis Malignant neoplasm of prostate documented in this encounter Care Teams Automotive Teacher Relationship Specialty Start Date End Date Alfredo Montoya DO [address] [place] [address] PCP - General Internal Medicine 12/04/19 04/27/23 documented as of this encounter
--- OUTSIDE RECORDS SUMMARY | 2024-07-08 01:32 | XMS_ITS | Encounter Summary ---
Author Organization [facility] Address [facility] [place] [address] Care Team Providers Care Environmental Health Nurse Name Role Phone Alfredo Montoya DO Primary Care Provider [phone] Encounter Details Date Type Department Care Team (Late st Contact Info) Description 03/14/2021 10:30 AM EDT [place] [phone] Silvia Zapata APRN [facility] [address] Trauma Social History Tobacco Use Types Packs/Day [...] this encounter Progress Notes * Silvia Zapata, PERSONAL PROPERTY ASSESSOR - 03/14/2021 10:30 AM EDT Name: Narcisa [...] going on his way to appointments at [facility]. Description of events leading up to injury includes: ??Patient was outside [facility], there for a urinary retention and PCP appointment, was sitting on a bench. His went to get the car and heard a thud. She turned around and saw him on the cement unresponsive, reportedly for two minutes. Patient was seen by [place] [facility] and brought to Emergency Room and subsequently transferred to [facility]. He is accompanied by his today; doing [...] and will see urologist on 03/21 in [place] to have catheter removed. Pt treatedfor UTI [...] 2012 date is approximate. at [facility] Dr Ko ??? PROSTATE BIOPSY 11/23/2019 ALLERGIES [...] on file Occupational History ??? 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 Occupation: [employer] Comment: [employer] Tobacco Use ??? Smoking status: Current Every [...] Unchanged left subdural hygroma with similar fashion gnjr-wn-jolgv midline shift compared to prior CT. 2. [...] his neurologist Plan: Follow up CT in [place] in 6 weeks with TOV ( OR return to if he has another appointment at ) Silvia Zapata APRN documented in this encounter Plan of Treatment Upcoming Encounters Date Type Department Care Team (Late st Contact Info) Description 11/09/2024 10:30 AM EDT Office Visit Radiation Oncology at [address] [phone] Taya De La Vega PA [facility] DR [place] [address] 11/13/2024 2:00 PM EDT Office Visit Hematology/Oncology at [address] [phone] Kirt Kennedy MD [facility] DR [place] [address] Alem Lazaro APRN [address] [place] [address] DR HEMATOLOGY AND ONCOLOGY [place], [place] [address] documented as of this encounter Visit Diagnoses Diagnosis Trauma Injury, other and unspecified, unspecified site documented in this encounter Care Teams Environmental Health Nurse Relationship Specialty Start Date End Date Alfredo Montoya DO [address] [place] [address] PCP - General Internal Medicine 12/04/19 04/27/23 documented as of this encounter
--- OUTSIDE RECORDS SUMMARY | 2024-07-08 01:32 | XMS_ITS | Encounter Summary ---
Author Organization [facility] [place] [address] Care Team Providers Care Roller Operator Name Role Phone Alfredo Montoya DO Primary Care Provider [phone] Reason for Referral * Physical Therapy (Routine) - Closed Specialty Diagnoses / Procedures Referred By Contac t Referred To Contact Physical Therapy Diagnoses Gait disorder Jasper Astudillo MD [facility] [place] [address] Referral ID Status Reason Start Date Expiration Date V isits Requested Visits Authorized [id number] Closed Evaluate and Treat Non PCP 05/01/2021 10/28/2021 12 12 Reason for Visit * Consultation (Routine) - Closed Specialty Diagnoses / Procedures Referred By Contaryan espitia Referred To Contact Neurology Diagnoses Syncope and collapse hosp ck - head trauma Marisol Hendrix P, BUTTON MAKER AND INSTALLER [address] [place] [address] [facility] [address] [place] [address] Referral ID Status Reason Start Date Expiration Date Visits Re quested Visits Authorized [id number] Closed 03/28/2021 03/28/2022 1 1 Encounter Details Date Type Department Care Team (Late st Contact Info) Description 05/01/2021 2:00 PM EDT [place] [address] Katharine Mohamud DO [facility] [place] [address] Jasper Astudillo MD [facility] [place] [address] Gait disorder Social History Tobacco Use Types [...] providers found Primary Provider: Alfredo Montoya DO [phone] Patient ID Narcisa is a 75 yo [...] BID. He does follow with neurology in [place] - Dr. 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 Semiology [...] 2012 [address] [facility] Dr Ko ??? PROSTATE BIOPSY 11/23/2019 Family History Problem Relation Age of Onset ??? Prostate Cancer Father Social History Socioeconomic History ??? Marital status: Spouse name: Not on file ??? Number of children: 3 ??? Years of education: Not on file ??? Highest education level: Not on file Occupational History ??? 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 Occupation: [employer] Comment: [place] Tobacco Use ??? Smoking status: [...] and Lipids No results for input(s): HA1C, RHSTN9N, BJX1TVRE, LABGLUC2, MICROALBUR in the last 168 hours. No results for input(s): CHLPL, HDL, TRIG, LDLDIRECT in the last 168 hours. Additional Testing No results for input(s): PHART, CIQ8AXQ, PO2ART, MQK5TSP in the last 168 hours. No results [...] over monitored duration 4-week Holter (10/25/20) through [facility] ??Conclusions::/Recommendations ?1. The patient wore the monitor [...] as documented. Katharine Mohamud D.O. Neurology Department [facility] [email or web address] documented in this encounter Miscellaneous Notes * Addendum Note - Katharine Mohamud DO - 05/01/2021 2:00 PM EDTAddended by: KATHARINE MOHAMUD on: 05/19/2021 06:30 PM Modules accepted: Level of Service documented in this encounter Plan of Treatment Upcoming Encounters Date Type Department Care Team (Late st [facility]) Description 11/09/2024 10:30 AM EDT Office Visit Radiation Oncology at [address] [phone] Taya De La Vega PA [facility] DR [place]AT[place] [address] 11/13/2024 2:00 PM EDT Office Visit Hematology/Oncology at [address] [phone] Kirt Kennedy MD [facility] DR HEMATOLOG[place] [address] Alem Lazaro APRN [address] [place] [address] DR HEMATOLOGY AND ONCOLOGY [place], [place] [address] Scheduled Referrals Name Type Priority Associated Diagnoses Orde r Schedule Referral to Physical Therapy Outpatient Referral Routine Gait disorder Ordered: 05/01/2021 documented as of this encounter Visit Diagnoses Diagnosis Gait disorder Abnormality of gait documented in this encounter Care Teams Roller Operator Relationship Specialty Start Date End Date Alfredo Montoya DO [address] [place] [address] PCP - General Internal Medicine 12/04/19 04/27/23 documented as of this encounter
--- OUTSIDE RECORDS SUMMARY | 2024-07-08 01:33 | XMS_ITS | Encounter Summary ---
Author Organization [facility] Address [facility] [place] [address] Care Team Providers Care Marketing Regional Consultant Name Role Phone Alfredo Montoya DO Primary Care Provider Encounter Details Date Type Department Care Team (Late st Contact Info) Description 08/26/2020 Ancillary Procedure Radiology Library at [facility] [place] [address] Alfredo Montoya DO [address] [place] [address] Social History Tobacco Use Types Packs/Day Years [...] EDT Office Visit Radiation Oncology at [address] [phone] [address] De La Vega PA [facility] HEMATOLOGY [place] [address] 11/13/2024 2:00 PM EDT Office Visit Hematology/Oncology at [address] [phone] [facility] DR [place] [address] Alem Lazaro, CHOLO [address] [place] [address] DR [place] [address] documented as of this encounter Procedures Procedure Name Priority Date/Time Associated Diagnosis Comments FILM LIBRARY STORAGE ONLY CT HEAD AND SPINE Routine 08/26/2020 12:00 AM EST documented in this encounter Results * Film Library- Storage Only CT Head And Spine (08/26/2020 12:00 AM EST) Narrative [facility] - 10/05/2020 4:43 AM EST This exam is auto-finalizing. It's purpose is for storage only. Alfredo Montoya DO [facility] FILM LIBRARY OR DERABLES Performing Organization Address City/State/[facility] Co de Phone Number [place], [place] documented in this encounter Visit Diagnoses Not on filedocumented in this encounter Care Teams Marketing Regional Consultant Relationship Specialty Start Date End Date Alfredo Montoya DO [address] [place] [address] PCP - General Internal Medicine 12/04/19 04/27/23 documented as of this encounter
--- OUTSIDE RECORDS SUMMARY | 2024-07-08 01:33 | XMS_ITS | Encounter Summary ---
Author Organization Replaced By [facility] Address [facility] [place] [address] Care Team Providers Care Accounts Payables Clerk Name Role Phone Alfredo Montoya DO Primary Care Provider [phone] Reason for Visit * - Closed Specialty Diagnoses / Procedures Referred By Contaryan t Referred To Contact Procedures Film Library- Storage Only CT Head Alfredo Montoya, DO [address] [place] [address] Referral ID Status Reason Start Date Expiration Date Visits Re quested Visits Authorized [id number] Closed 12/08/2020 12/08/2021 1 1 Encounter Details Date Type Department Care Team (Late st Contact Info) Description 12/07/2020 Ancillary Procedure Radiology Library at [facility] [place] [address] Alfredo Montoya, DO [address] [place] [address] Social History Tobacco Use Types Packs/Day Years [...] Visit Radiation Oncology at [address] [phone] Taay De La Vega PA [facility] DR [place] [address] 11/13/2024 2:00 PM EDT Office Visit Hematology/Oncology at [address] [phone] Kirt Kennedy MD [facility] DR [place] [address] Alem Lazaro APRN [address] [place] [address] DR HEMATOLOGY [place] [address] documented as of this encounter Procedures Procedure Name Priority Date/Time Associated Diagnosis Comments FILM LIBRARY STORAGE ONLY CT HEAD Routine 12/07/2020 12:00 AM EDT documented in this encounter Results * Film Library- Storage Only CT Head (12/07/2020 12:00 AM EDT) Narrative [facility] - 12/08/2020 12:25 PM EDT This exam is auto-finalizing. It's purpose is for storage only. Alfredo Montoya DO IMG FILM LIBRARY OR DERABLES [place], [place] documented in this encounter Visit Diagnoses Not on filedocumented in this encounter Care Teams Accounts Payables Clerk Relationship Specialty Start Date End Date Alfredo Montoya DO [address] [place] [address] PCP - General Internal Medicine 12/04/19 04/27/23 documented as of this encounter
--- OUTSIDE RECORDS SUMMARY | 2024-07-08 01:33 | XMS_ITS | Encounter Summary ---
Author Organization [facility] Address [facility] [place] [address] Care Team Providers Care Head Machine Feeder Name Role Phone Alfredo Montoya DO Primary Care Provider [phone] Reason for Visit * - Closed Specialty Diagnoses / Procedures Referred By Contaryan t Referred To Contact Procedures Film Library- Storage Only DX Chest Alfredo Montoya DO [address] [place] [address] Referral ID Status Reason Start Date Expiration Date Visits Re quested Visits Authorized [id number] Closed 01/05/2021 01/05/2022 1 1 Encounter Details Date Type Department Care Team (Late st Contact Info) Description 01/05/2021 12:30 PM EDT Ancillary Procedure Radiology Library at [facility] [place] [address] Alfredo Montoya DO [address] [place] [address] Social History Tobacco Use Types [...] EDT Office Visit Radiation Oncology at [address] [phone] Taya De La Vega PA [facility] DR [place] [address] 11/13/2024 2:00 PM EDT Office Visit Hematology/Oncology at [address] [phone] Kirt Kennedy MD [facility] [place] [address] Alem Lazaro APRN [address] [place] [address] DR HEMATOLOGY AND ONCOLOGY [place], [place] [phone] documented as of this encounter Procedures Procedure Name Priority Date/Time Associated Diagnosis Comments FILM LIBRARY STORAGE ONLY DX CHEST Routine 01/05/2021 12:24 PM EDT documented in this encounter Results * Film Library- Storage Only DX Chest (01/05/2021 12:24 PM EDT) Narrative [facility] - 01/05/2021 12:24 PM EDT This exam is auto-finalizing. It's purpose is for storage only. Alfredo Montoya DO G FILM LIBRARY OR DERABLES Performing Organization Address City/State/[facility] Co de Phone Number [place], [place] documented in this encounter Visit Diagnoses Not on filedocumented in this encounter Care Teams Head Machine Feeder Relationship Specialty Start Date End Date Alfredo Montoya DO [address] [place] [address] PCP - General Internal Medicine 12/04/19 04/27/23 documented as of this encounter
--- OUTSIDE RECORDS SUMMARY | 2024-07-08 01:33 | XMS_ITS | Encounter Summary ---
Author Organization [facility] [place] [address] Care Team Providers Care Second Worker Name Role Phone Alfredo Montoya DO Primary Care Provider Encounter Details Date Type Department Care Team (Late st Contact Info) Description 04/04/2020 10:15 AM EDT Office Visit Radiation Oncology at [address] [place] [phone] Que Evans MD [address] [place] [address] DR RADIATION ONCOLOGY [place], [place] [phone] Malignant neoplasm of prostate Social History Tobacco [...] 04/04/20 Que Evans MD, MS Radiation Oncology [facility] [phone] (paging scalp treatment operator) Pager #[phone] PATIENT IDENTIFICATION Name Narcisa Eduardo Date of 1945 PCP Alfredo Montoya, Referring MD (if different) Dr. Martha Montoya ([place]) 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, Gl [...] EDT Office Visit Radiation Oncology at [address] [phone] Taya De La Vega PA [facility] [place] [address] 11/13/2024 2:00 PM EDT Office Visit Hematology/Oncology at [address] [phone] Kirt Kennedy MD [facility] [place] [address] Alme Lazaro APRN [address] [place] [address] DR [place] [address] documented as of this encounter Visit Diagnoses Diagnosis Malignant neoplasm of prostate documented in this encounter Care Teams Second Worker Relationship Specialty Start Date End Date Alfredo Montoya DO [address] [place] [address] PCP - General Internal Medicine 12/04/19 04/27/23 documented as of this encounter
--- OUTSIDE RECORDS SUMMARY | 2024-07-08 01:33 | XMS_ITS | Encounter Summary ---
Author Organization [facility] [place] [address] Care Team Providers Care Dairy And Food Laboratory Assistant Name Role Phone Alfredo Montoya DO Primary Care Provider [phone] Encounter Details Date Type Department Care Team (Late st Contact Info) Description 07/30/2020 Telephone Hematology/Oncology at [address] [phone] Social History [...] EDT Office Visit Radiation Oncology at [address] [phone] Taya De La Vega PA [facility] HEMATOLOGY [place] [address] 11/13/2024 2:00 PM EDT Office Visit Hematology/Oncology at [address] [phone] Kirt Kennedy MD [facility] DR [place] [address] Alem Lazaro APRN [address] [place] [address] DR HEMATOLOGY AND ONCOLOGY [place], [place] [address] documented as of this encounter Visit Diagnoses Not on filedocumented in this encounter Care Teams Dairy And Food Laboratory Assistant Relationship Specialty Start Date End Date Alfredo Montoya DO [address] [place] [address] PCP - General Internal Medicine 12/04/19 04/27/23 documented as of this encounter
--- OUTSIDE RECORDS SUMMARY | 2024-07-08 01:33 | XMS_ITS | Encounter Summary ---
Author Organization [facility] [place] [address] Care Team Providers Care Route Agent Name Role Phone Alfredo Montoya DO Primary Care Provider [phone] Encounter Details Date Type Department Care Team (Late st Contact Info) Description 03/14/2020 9:45 AM EDT Office Visit Radiation Oncology at [address] [place] [phone] Que Evans MD [address] [place] [address] [place] [address] Malignant neoplasm of prostate Social [...] 03/14/20 Que Evans MD, MS Radiation Oncology [facility] [phone] (paging lease operator) Pager #[phone] PATIENT IDENTIFICATION Name Narcisa Eduardo Date of 1945 PCP Alfredo Montoya DO Referring MD (if different) Dr. Martha Montoya ([place]) 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, Gl [...] EDT Office Visit Radiation Oncology at [address] [phone] Taya De La Vega PA [facility] H[place]ATOLOGY [place] [address] 11/13/2024 2:00 PM EDT Office Visit Hematology/Oncology at [address] [phone] Kirt Kennedy MD [facility] DR HEMATOLOGY [place] [address] Alem Lazaro APRN [address] [place] [address] DR [place] [address] documented as of this encounter Visit Diagnoses Diagnosis Malignant neoplasm of prostate documented in this encounter Care Teams Route Agent Relationship Specialty Start Date End Date Alfredo Montoya DO [address] [place] [address] PCP - General Internal Medicine 12/04/19 04/27/23 documented as of this encounter
--- OUTSIDE RECORDS SUMMARY | 2024-07-08 01:33 | XMS_ITS | Encounter Summary ---
Author Organization [facility] Address [facility] [place] [address] Care Team Providers Care Photographic Process Screen Maker Name Role Phone Alfredo Montoya DO Primary Care Provider [phone]- [phone] Encounter Details Date Type Department Care Team (Late Contact Info) Description 07/15/2020 Orders Only Radiation Oncology at [address] [phone] Que Evans MD [address] [place] [address] [place] [address] Malignant neoplasm of prostate Social [...] EDT Office Visit Radiation Oncology at [address] [phone] Taya De La Vega PA [facility] [place] [address] 11/13/2024 2:00 PM EDT Office Visit Hematology/Oncology at [address] [phone] Kirt Kennedy MD [facility] DR [place] [address] Alem Lazaro APRN [address] [place] [address] DR [place] [address] documented as of this encounter Visit Diagnoses Diagnosis Malignant neoplasm of prostate documented in this encounter Care Teams Photographic Process Screen Maker Relationship Specialty Start Date End Date Alfredo Montoya DO [address] [place] [address] PCP - General Internal Medicine 12/04/19 04/27/23 documented as of this encounter
--- OUTSIDE RECORDS SUMMARY | 2024-07-08 01:33 | XMS_ITS | Encounter Summary ---
Author Organization [facility] Address [facility] [place] [address] Care Team Providers Care Vice President Of Consulting Services Name Role Phone Alfredo Montoya DO Primary Care Provider [phone] Encounter Details Date Type Department Care Team (Late st Contact Info) Description 01/05/2021 Telephone Neurology at [facility] [place] [phone] Martin Daniel MD [facility] [place] [address] Social History Tobacco Use Types Packs/Day Years [...] original note were not included. Call from [facility] 75 Y M with subdural, [...] increase density. He is being managed through [facility] Discussed that he may need admission/ observation. Due to lack of beds here the physician will contact [facility] where he gets his Neurologic care. Martin Daniel MD Department of Neurology Pager # [phone] documented in this encounter Plan of Treatment Upcoming Encounters Date Type Department Care Team (Late st Contact Info) Description 11/09/2024 10:30 AM EDT Office Visit Radiation Oncology at [address] [phone] Taya De La Vega PA [facility] DR [place] [address] 11/13/2024 2:00 PM EDT Office Visit Hematology/Oncology at [address] [phone] Kirt Kennedy MD [facility] DR [place]EMAT[place] [address] Alem Lazaro APRN [address] [place] [address] DR HEMATOLOGY AND ONCOLOGY [place], [place] [id number] documented as of this encounter Visit Diagnoses Not on filedocumented in this encounter Care Teams Vice President Of Consulting Services Relationship Specialty Start Date End Date Alfredo Montoya DO [address] [place] [address] PCP - General Internal Medicine 12/04/19 04/27/23 documented as of this encounter
--- OUTSIDE RECORDS SUMMARY | 2024-07-08 01:33 | XMS_ITS | Encounter Summary ---
Author Organization [facility] Address [facility] [place] [address] Care Team Providers Care Undercover Cop Name Role Phone Alfredo Montoya DO Primary Care Provider [phone]- [phone] Reason for Visit * - Closed Specialty Diagnoses / Procedures Referred By Contaryan t Referred To Contact Procedures Film Library- Storage Only DX Chest Alfredo Montoya DO [address] [place] [address] Referral ID Status Reason Start Date Expiration Date Visits Re quested Visits Authorized [id number] Closed 12/08/2020 12/08/2021 1 1 Encounter Details Date Type Department Care Team (Late st Contact Info) Description 12/03/2020 12:05 AM EDT Ancillary Procedure Radiology Library at [facility] [place] [phone] Alfredo Montoya DO [address] [place] [address] Social History Tobacco Use Types [...] EDT Office Visit Radiation Oncology at [address] [phone] Taya De La Vega PA [facility] DR [place] [address] 11/13/2024 2:00 PM EDT Office Visit Hematology/Oncology at [address] [phone] Kirt Kennedy MD [facility] DR [place] [address] Alem Lazaro APRN [address] [place] [address] DR HEMATOLOGY AND ONCOLOGY [place], [place] [phone] documented as of this encounter Procedures Procedure Name Priority Date/Time Associated Diagnosis Comments FILM LIBRARY STORAGE ONLY DX CHEST Routine 12/03/2020 12:05 AM EDT documented in this encounter Results * Film Library- Storage Only DX Chest (12/03/2020 12:05 AM EDT) Narrative [facility] - 12/08/2020 12:26 PM EDT This exam is auto-finalizing. It's purpose is for storage only. Alfredo Montoya DO IMG FILM LIBRARY OR DERABLES Performing Organization Address City/State/[facility] Co de Phone Number [place], [place] documented in this encounter Visit Diagnoses Not on filedocumented in this encounter Care Teams Undercover Cop Relationship Specialty Start Date End Date Alfredo Montoya DO [address] [place] [address] PCP - General Internal Medicine 12/04/19 04/27/23 documented as of this encounter
--- OUTSIDE RECORDS SUMMARY | 2024-07-08 01:33 | XMS_ITS | Encounter Summary ---
Author Organization [facility] Address [facility] [place] [address] Care Team Providers Care Manager Trade Name Role Phone Alfredo Montoya DO Primary Care Provider [phone] Encounter Details Date Type Department Care Team (Late Contact Info) Description 10/08/2020 Orders [place] [address] Robson Gardiner PA [facility] [place] [address] SDH (subdural hematoma) Social History Tobacco Use [...] EDT Office Visit Radiation Oncology at [address] [phone] Taya De La Vega PA [facility] [place] [address] 11/13/2024 2:00 PM EDT Office Visit Hematology/Oncology at [address] [phone] Kirt Kennedy MD [facility] [place] [address] Alem Lazaro, [address] [place] [address] documented as of this encounter Visit Diagnoses Diagnosis SDH (subdural hematoma) Subdural hemorrhage documented in this encounter Care Teams Manager Trade Relationship Specialty Start Date End Date Alfredo Montoya DO [address] [place] [address] PCP - General Internal Medicine 12/04/19 04/27/23 documented as of this encounter
--- OUTSIDE RECORDS SUMMARY | 2024-07-08 01:33 | XMS_ITS | Encounter Summary ---
Author Organization [facility] Address [facility] [place] [address] Care Team Providers Care Ring Striker Name Role Phone Alfredo Montoya DO Primary Care Provider [phone] Reason for Visit * Reason Comments Cerebrovascular Accident Encounter Details Date Type Department Care Team (Latest Contact Info) Description 08/27/2020 6:40 PM EST Ext Surgery or Single Event Cardiology at [address] [phone] Alex Navarrete MD [facility] [address] Cerebrovascular accident (CVA), unspecified mechanism Social History [...] EDT Office Visit Radiation Oncology at [address] [phone] Taya De La Vega PA [facility] [place] [address] 11/13/2024 2:00 PM EDT Office Visit Hematology/Oncology at [address] [phone] Kirt Kennedy MD [facility] [place] [address] Alem Lazaro APRN [address] [place] [address] DR HEMATOLOGY AND ONCOLOGY [place], [place] [address] documented as of this encounter Procedures Procedure Name Priority Date/Time Associated Diagnosis Comments HOLTER MONITOR 24 HOUR Routine 08/27/2020 documented in this encounter Results * Holter Monitor 24hr (08/27/2020) Anatomical Region Laterality Modality Other Narrative 08/27/2020 [facility]: [facility] Referring: [facility] Indication: ??CVA Duration of recording [...] mechanism documented in this encounter Care Teams Ring Striker Relationship Specialty Start Date End Date Alfredo Montoya DO [address] [place] [address] PCP - General Internal Medicine 12/04/19 04/27/23 documented as of this encounter
--- OUTSIDE RECORDS SUMMARY | 2024-07-08 01:33 | XMS_ITS | Encounter Summary ---
Author Organization [facility] [place] [address] Care Team Providers Care Automatic Machine Attendant Name Role Phone Alfredo Montoya DO Primary Care Provider [phone] Encounter Details Date Type Department Care Team (Late st Contact Info) Description 03/28/2020 10:00 AM EDT Office Visit Radiation Oncology at [address] [phone] Que Evans MD [address] [place] [address] DR RADIATION ONCOLOGY [place], [place] [phone] Malignant neoplasm of prostate Social History Tobacco [...] Que Evans MD, [place] Radiation Oncology [facility] [phone] (paging assistant refinery operator) Pager #[phone] PATIENT IDENTIFICATION Name Narcisa Eduardo Date of 1945 PCP Alfredo Montoya DO Referring MD (if different) Dr. Martha Montoya ([place]) 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, Gl [...] EDT Office Visit Radiation Oncology at [address] [phone] Taya De La Vega PA [facility] DR [place] [address] 11/13/2024 2:00 PM EDT Office Visit Hematology/Oncology at [address] [phone] Kirt Kennedy MD [facility] DR [place] [address] Alem Lazaro APRN [address] [place] [address] DR HEMATOLOGY AND ONCOLOGY [place], [place] [address] documented as of this encounter Visit Diagnoses Diagnosis Malignant neoplasm of prostate documented in this encounter Care Teams Automatic Machine Attendant Relationship Specialty Start Date End Date Alfredo Montoya DO [address] [place] [address] PCP - General Internal Medicine 12/04/19 04/27/23 documented as of this encounter
--- OUTSIDE RECORDS SUMMARY | 2024-07-08 01:33 | XMS_ITS | Encounter Summary ---
Author Organization [facility] Address [facility] [place] [address] Care Team Providers Care Plant Tender Name Role Phone Alfredo Montoya DO Primary Care Provider +[phone] Encounter Details Date Type Department Care Team (Late st Contact Info) Description 02/25/2021 Tele[place] [address] Alem Lazar MD [facility] [place] [address] Social History Tobacco Use Types Packs/Day Years [...] February 23, 2021 ??2:21 AM To: P [facility] Neurosurgery Risk Manager ?? Message Hello and good day! Please [...] EDT Office Visit Radiation Oncology at [address] [phone] Taya De La Vega PA [facility] HEMATOLOGY [place] [address] 11/13/2024 2:00 PM EDT Office Visit Hematology/Oncology at [address] [phone] Kirt Kennedy MD [facility] DR HEMATOLOGY [place] [address] Alem Lazaro APRN [address] [place] [address] DR [place] [address] documented as of this encounter Visit Diagnoses Not on filedocumented in this encounter Care Teams Plant Tender Relationship Specialty Start Date End Date Alfredo Montoya DO [address] [place] [address] PCP - General Internal Medicine 12/04/19 04/27/23 documented as of this encounter
--- OUTSIDE RECORDS SUMMARY | 2024-07-08 01:33 | XMS_ITS | Encounter Summary ---
Author Organization [facility] Address [facility] [address] Care Team Providers Care Lacing Cutter Name Role Phone Alfredo Montoya DO Primary Care Provider [phone] Reason for Visit * Consultation (Routine) - Closed Specialty Diagnoses / Procedures Referred By Contac t Referred To Contact Hematology and Oncology Diagnoses Follicular lymphoma, unspecified, unspecified site Follicular lymphoma, unspecified, unspecified site Procedures TREATMENT OPTIONS Alfredo Montoya DO [address] [place] [address] Kirt Kennedy MD [address] [place] [address] DR HEMATOLOGY [place] [address] Referral ID Status Reason Start Date Expiration Date Visits Re quested Visits Authorized [id number] Closed 06/11/2020 06/11/2021 1 1 Encounter Details Date Type Department Care Team (Late st Contact Info) Description 06/24/2020 2:00 PM EST Office Visit Hematology/Oncology at [address] [phone] Kirt Kennedy MD [facility] DR [place] [address] Follicular lymphoma, unspecified grade, unspecified [...] ] Yes[ X ]Site _Prostate Date___February 2020 Facility_[facility]- Prior Chemotherapy: no[ ] Yes[X ] Drug: Oncologist- [facility] in [facility] LastTreatment: ~1 yr ago NO: YES: Claustrophobia [...] - 06/24/2020 2:00 PM [place] [address] [phone] Narcisa Eduardo is being seen for the evaluation of follicular lymphoma. Assessment & Plan: Narcisa Eduardo is a 74 y.o. male patient with a PMH of an abdominal aortic aneurysm, thoracic aortic aneurysm, hypertension, prior alcohol abuse, tobacco abuse, A stroke in early 2019 and follicular lymphoma who recently completed EBRT for localized prostate cancer who wishes to followup here in [facility] for his lymphoma rather than at the [facility] given the proximity to his home. He [...] Kirt Kennedy MD, MS 06/24/2020 Thoracic Oncology [facility] CC: DO Angelica Guadalupe MD HPI/Interval History/Subjective: Narcisa Eduardo is a 74 y.o. male patient with a PMH of an abdominal aortic aneurysm, thoracic aortic aneurysm, hypertension, prior alcohol abuse, tobacco abuse, A stroke in early 2019 and follicular lymphoma who recently completed EBRT for localized prostate cancer who wishes to followup here in [facility] for his lymphoma rather than at the [facility] given the proximity to his home. The [...] History/Support Network: Home situation: Lives with in [facility] Employment: Tobacco use: Rolls his own cigarettes. 10/24 ppd. X30-40 years Alcohol use: Stopped drinking in 09/2019 after a stroke when he was placed on Plavix Drug use: None Loves gardening but can't do it any more. service: [employer]. [place] Era. Had Agent Thurston Exposure. 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 Treated at the [facility] by Dr. Martha Castañeda - PET-CT 11/26/15 [...] 9. Personal History of Exposure to Agent Thurston No flowsheet data found. Patient Active Problem [...] cell count normal at 6.0, hemoglobin 14.7 [id number] absolute neutrophil count 4.6 absolute lymphocyte count [...] left inguinal node 03/18/15; taken from the [facility] pathology report - [...] Kirt Kennedy MD, MS 06/24/2020 Thoracic Oncology [facility] documented in this encounter Plan of Treatment Upcoming Encounters Date Type Department Care Team (Late st Contact Info) Description 11/09/2024 10:30 AM EDT Office Visit Radiation Oncology at [address] [phone] Taya De La Vega PA [facility] DR [place] [address] 11/13/2024 2:00 PM EDT Office Visit Hematology/Oncology at [address] [phone] Kirt Kennedy MD [facility] DR [place] [address] Alem Lazaro APRN [address] [place] [address] DR HEMATOLOGY AND ONCOLOGY [place], [place] [address] documented as of this encounter Visit Diagnoses Diagnosis Follicular lymphoma, unspecified grade, unspecified body region- Primary Malignant neoplasm of prostate documented in this encounter Care Teams Lacing Cutter Relationship Specialty Start Date End Date Alfredo Montoya DO [address] [place] [address] PCP - General Internal Medicine 12/04/19 04/27/23 documented as of this encounter
--- OUTSIDE RECORDS SUMMARY | 2024-07-08 01:33 | XMS_ITS | Encounter Summary ---
Author Organization [facility] Address [facility] [place] [address] Care Team Providers Care Computer Operations Analyst Name Role Phone Alfredo Montoya DO Primary Care Provider Encounter Details Date Type Department Care Team (Late st Contact Info) Description 01/22/2021 Ancillary Procedure Radiology Library at [facility] [place] [address] Silvia Zapata APRN [facility] [place] [address] Social History Tobacco Use Types Packs/Day Years [...] EDT Office Visit Radiation Oncology at [address] [phone] Taya De La Vega PA [facility] HEMATOLOGY [place] [address] 11/13/2024 2:00 PM EDT Office Visit Hematology/Oncology at [address] [phone] Kirt Kennedy MD [facility] DR [place] [address] Alem Lazaro APRN [address] [place] [address] [place] [address] documented as of this encounter Procedures Procedure Name Priority Date/Time Associated Diagnosis Comments FILM LIBRARY STORAGE ONLY CT HEAD Routine 01/22/2021 12:00 AM EDT documented in this encounter Results * Film Library- Storage Only CT Head (01/22/2021 12:00 AM EDT) Narrative [facility] - 05/08/2021 10:52 PM EDT This exam is auto-finalizing. It's purpose is for storage only. Silvia Zapata APRN IMG FILM LIBRARY ORDERABLES Performing Organization Address City/State/[facility] Co de Phone Number [place], [place] documented in this encounter Visit Diagnoses Not on filedocumented in this encounter Care Teams Computer Operations Analyst Relationship Specialty Start Date End Date Alfredo Montoya DO [address] [place] [address] PCP - General Internal Medicine 12/04/19 04/27/23 documented as of this encounter
--- OUTSIDE RECORDS SUMMARY | 2024-07-08 01:33 | XMS_ITS | Encounter Summary ---
Author Organization [facility] Address [facility] [place] [address] Care Team Providers Care Tile Roofer Name Role Phone Alfredo Montoya DO Primary Care Provider +[phone] Encounter Details Date Type Department Care Team (Latest Contact Info) Description 04/09/2020 10:00 AM EDT Clinical Support Hematology/Oncology at [address] [phone] Malignant neoplasm [...] Johnson RD - 04/09/2020 10:00 AM EDT [facility] [...] Am: first meal around 10 or 11, namibian muffin with egg on one side and [...] EDT Office Visit Radiation Oncology at [address] [phone] Taya De La Vega PA [facility] DR [place] [address] 11/13/2024 2:00 PM EDT Office Visit Hematology/Oncology at [address] [phone] Kirt Kennedy MD [facility] DR [place] [address] Alem Lazaro APRN [address] [place] [address] DR HEMATOLOGY AND ONCOLOGY [place], [place] [address] documented as of this encounter Visit Diagnoses Diagnosis Malignant neoplasm of prostate documented in this encounter Care Teams Tile Roofer Relationship Specialty Start Date End Date Alfredo Montoya DO [address] [place] [address] PCP - General Internal Medicine 12/04/19 04/27/23 documented as of this encounter
--- OUTSIDE RECORDS SUMMARY | 2024-07-08 01:33 | XMS_ITS | Encounter Summary ---
Author Organization [facility] Address [facility] [address] Care Team Providers Care Citrix Administrator Name Role Phone Alfredo Montoya DO Primary Care Provider [phone]- [phone] Encounter Details Date Type Department Care Team (Late Contact Info) Description 02/18/2021 5:00 PM EDT Ancillary Procedure Radiology Library at [facility] [place] [phone] Social History Tobacco Use Types Packs/Day Years [...] EDT Office Visit Radiation Oncology at [address] [phone] Taya De La Vega PA [facility] HEMATOLOGY AND ONCOLOGY [place] [address] 11/13/2024 2:00 PM EDT Office Visit Hematology/Oncology at [address] [phone] Kirt Kennedy MD [facility] HEMATOLOGY AND ONCOLOGY [place] [address] Alem Lazaro APRN [address] [place] [address] DR [place] [address] documented as of this encounter Procedures Procedure Name Priority Date/Time Associated Diagnosis Comments FILM LIBRARY STORAGE ONLY CT HEAD AND SPINE STAT 02/18/2021 4:55 PM EDT documented in this encounter Results * Film Library- Storage Only CT Head And Spine (02/18/2021 4:55 PM EDT) Narrative [facility] - 02/18/2021 4:55 PM EDT This exam is auto-finalizing. It's purpose is for storage only. Eduard Luu MD IMG FILM LIBRARY ORD ERABLES [place], [place] documented in this encounter Visit Diagnoses Not on filedocumented in this encounter Care Teams Citrix Administrator Relationship Specialty Start Date End Date Alfredo Montoya DO [address] [place] [address] PCP - General Internal Medicine 12/04/19 04/27/23 documented as of this encounter
--- OUTSIDE RECORDS SUMMARY | 2024-07-08 01:33 | XMS_ITS | Encounter Summary ---
Author Organization [facility] [place] [address] Care Team Providers Care Assistant Account Executive Name Role Phone Alfredo Montoya DO Primary Care Provider [phone] Encounter Details Date Type Department Care Team (Late st Contact Info) Description 04/02/2020 10:00 AM EDT Office Visit Hematology/Oncology at [address] [phone] Malignant neoplasm [...] Johnson RD - 04/02/2020 10:00 AM EDT [facility] Dietitian Follow Up Seen By: Kristyn [...] Am: first meal around 10 or 11, togolese muffin with egg on one side and [...] EDT Office Visit Radiation Oncology at [address] [phone] Taya De La Vega PA [facility] DR [place] [address] 11/13/2024 2:00 PM EDT Office Visit Hematology/Oncology at [address] [phone] Kirt Kennedy MD [facility] DR [place] [address] Alem Lazaro APRN [address] [place] [address] DR HEMATOLOGY AND ONCOLOGY [place], [place] [phone] documented as of this encounter Visit Diagnoses Diagnosis Malignant neoplasm of prostate documented in this encounter Care Teams Assistant Account Executive Relationship Specialty Start Date End Date Alfredo Montoya DO [address] [place] [address] PCP - General Internal Medicine 12/04/19 04/27/23 documented as of this encounter
--- OUTSIDE RECORDS SUMMARY | 2024-07-08 01:33 | XMS_ITS | Encounter Summary ---
Author Organization Formerly [facility], [facility] Address [facility] [place] [address] Care Team Providers Care Hub Borer Name Role Phone Alfredo Montoya DO Primary Care Provider [phone] Reason for Referral * Diagnostic Test (Routine) - Closed Specialty Diagnoses / Procedures Referred By Contac t Referred To Contact Radiology Diagnoses Intracranial bleed Procedures CT Head wo Contrast (Generic) Linnea Muhammad PA [facility] [place] [address] [facility] [place] [address] Referral ID Status Reason Start Date Expiration Date V isits Requested Visits Authorized [id number] Closed Specialty Service Requested 09/18/2020 03/17/2021 1 1 Reason for Visit * Reason Comments Trauma Hospital Transfer * Auth/Cert Specialty Diagnoses / Procedures Referred By Contac t Referred To Contact Diagnoses Trauma SAH / SDH Procedures er ipi Referral ID Status Reason Start Date Expiration Date Visits Re quested Visits Authorized [id number] 1 1 Encounter Details Date Type Department Care Team (Late st Contact Info) Description 02/18/2021 7:58 PM EDT - 02/26/2021 2:57 PM EDT Hospital Encounter [address] [place] [address] Alex Carrillo MD [facility] [place] [address] Feliciano Estrada MD [facility] [place] [address] Eduard Luu MD [address] [place], [place] [address] [address] Kaci Blake MD [facility] [place] [address] Trauma; Syncope, unspecified syncope type; Intracranial bleed; [...] Center 03/14/2021 8:30 AM Kristi Carey APRN [facility] SURG [facility] 03/14/2021 9:40 AM [facility] CT [address] CT [facility] Rad 03/14/2021 10:30 AM Silvia Zapata APRN [facility] [id number] [facility] Other In-hospital Issues: - Acute Pain Secondary [...] HPI: Narcisa Jayce??is a 75 y.o.??male??presents to [facility] s/p fall from standing. ??Description of events leading up to injury includes: ??Patient was outside [facility], there for a urinary retention and PCP appointment, was sitting on a bench. His went to get the car and heard a thud. She turned around and saw him on the cement unresponsive, reportedly for two minutes. [facility].??He was found to have a subdural hematoma and was transferred to [facility] for further management. ?? Primary survey??revealed: intact??airway, [...] services. 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 In [...] Not indicated, tolerating diet Consults (Please see inbound sales consultant notes): PT/OT, NSGY, Neuro Dispo: Home [...] Center 03/14/2021 8:30 AM Kristi Carey APRN [facility] SUR[facility] 03/14/2021 9:40 AM [facility] [address] [facility] Rad 03/14/2021 10:30 AM Silvia Zapata APRN [facility] [id number] [facility] Outpatient Services/Studies: CT Head wo Contrast (Generic) Standing Status: Future Standing Exp. Date: 05/22/21 Question Response Notes Clinical information / barillas questions: follow-up tSAH, parafalcine SDH Where will study be performed? [facility] Radiology [120] Referral to Home Health - at DISCHARGE Order Comments: DOCUMENTATION FOR VNA SERVICES (INCLUDING THOSE PATIENTS WITH MEDICARE COVERAGE REQUIRING HOME VNA SERVICES AND/OR HOSPICE SERVICES) PATIENT'S [place]ATION[place] [address] [facility] [address] ([facility]) Cell: Telephone Information: In discussion with the attending physician, it is certified that this patient is under their care and that they, or a Nurse Practitioner,Clinical Nurse specialist or Physician Associate Chemist who is working directly with them, had [...] for managing ADL's. HOME HEALTH CARE AGENCY: [facility]. PHONE: [phone] FAX: [phone] Start of care: 24-48 hours after discharge [...] this patient's PCP: Alfredo Montoya, DO [address] [facility] [address] All A agencies which cover the area [...] Trauma and Acute Care Surgery Team at [facility]. If you have any questions or concerns, please feel free to contact us. Provider Contact Information: General Surgery Clinic: Nurses line for questions: [facility] (after business hours): CC: Alfredo Montoya DO Yuliya Kramer Kristi Carey APRN Signed: Nj Kimball APRN Department of Surgery 02/26/2021 Trauma pager [phone] This patient was seen in conjunction with [...] anticoagulant, and non-steroidal anti-inflammatory (NSAIDs) drugs. Common eftd-nhy-fknutfk medications which should be avoided include Aspirin, [...] a head injury. - When your health home visit field care manager says you are well enough, return to your normal activities gradually, not all at once. - Talk with your health home visit field care manager about when you can return to work. DRIVING: - Do not drive while taking narcotic pain medication. FOLLOW UP PLAN: Appointment: Please follow-up in the Neurosurgery Clinic in 2 weeks with a Neurosurgery Associate Provider. Please call the Neurosurgery Office at [phone] if you do not receive a scheduled appointment withintwo weeks Imaging: Head CT HOW TO REACH NEUROSURGERY Office Hours: Wednesday through Wednesday, 8am-5pm. Call . On weekends or after office hours: Call [phone] and ask the mult au matic operator to page the Neurosurgery Resident/Advanced Practice Provider oil pump station operator chief. IMPORTANT PHONE NUMBERS: Outpatient Nurse (Arielle Cedillo) Inpatient Nurses Neurosurgical Resident/Advanced Practice Provider On-Call (after 5pm or before 8am) Neurosurgery offices (Wednesday through Wednesday between 8am-5pm): Adult Neurosurgery Dr. Tariq Cm Pediatric Neurosurgery Dr. Bonita Bush Advanced Practice Providers Silvia Zapata, Nurse Practitioner (outpatient) Linnea Muhammad, Physician Associate Chemist (inpatient) Chloé Hummel, Nurse Practitioner (inpatient) Whit Sorensen, Physician Associate Chemist (inpatient) Whit Luke, Physician Associate Chemist (inpatient) Kristie Amaya, Physician Associate Chemist (outpatient: spine) Romario Loyola, Nurse Practitioner (inpatient/outpatient) Naty Gardiner, Physician Associate Chemist (outpatient) Marlene Sierra, Nurse Practitioner (outpatient: neuro-oncology) * Patient Instructions* Nj Kimball, BUSINESS PRACTICES OFFICER - 02/23/2021 8:55 PM EDT Discharge Instructions [...] be with Yuliya Crespo a Geriatrics Physician Associate Chemist. Yuliya is also a former physical therapist. [...] 1. You will have follow-up appointments at [facility] as indicated in the ???Future Appointments and [...] on the next business day. Please call [phone] if you do not hear from us by that time, as your timely follow-up is very important to us. Your care was managed by the Trauma and Acute Care Surgery Team at [facility]. If you have any questions or concerns, please feel free to contact us. Provider Contact Information: General Surgery: [facility] (after business hours): Primary Care Physician: Alfredo [...] PM EDT Patient discharged to home with [facility] services. IV removed, site benign. See primary [...] with family. Discharge Summary was faxed to [facility], RN called report to A, report given [...] cancer s/p radiation?admitted on 02/18/2021?In transfer from [facility]??for??fall from standing.??.? Injuries from fall:?? 1. [...] at home.??He was being followed by a MARINE RADIO INSTALLER AND SERVICER who he states was considering thickening his liquids. Denies having a MBS. ??Reports difficulty initiating a swallow. MARINE RADIO INSTALLER AND SERVICER taught him to put downward pressure with [...] when offered. Pt became slightly agitated with MARINE RADIO INSTALLER AND SERVICER trialing therapeutic techniques for swallow initiation, as [...] time as Pt was became irritated that MARINE RADIO INSTALLER AND SERVICER was trying to casarez his swallow function; [...] has worked on this with a previous MARINE RADIO INSTALLER AND SERVICER. Patient status, treatment and swallow recommendations were discussed with nursing and primary team. Requested travel ticketing reviewer recommendations with Pt's family when they arrive to pick him up today. Assessment: Pt was seen today for a follow-up MARINE RADIO INSTALLER AND SERVICER visit. At bedside, Pt continues to present with oral holding with thin liquids. Several therapeutic trials to assist with timeliness of swallow were trialed and appeared helpful, however, could not complete enough due to Pt refusal. No overt s/s pene tration/aspiration with PO trials on this date at bedside. Pt currently denies swallowing deficits,but acknowledges working with an outside MARINE RADIO INSTALLER AND SERVICER. Pt was independently taking small bites at a slow rate at bedside on this date. Pt will benefit from continued therapeutic interventions to achieve therapy goals. Discussed with Pt being seen by MARINE RADIO INSTALLER AND SERVICER in discharge setting. Pt states he is agreeable to see his previous MARINE RADIO INSTALLER AND SERVICER. Diagnosis: Oral phase dysphagia; Oropharyngeal phase deficits seen on [facility] 02/20/21 Recommendations: Diet: Regular solids, Thin liquids; [...] and safe swallowing strategies. Plan: Therapy Frequency (MARINE RADIO INSTALLER AND SERVICER Eval): 1-3 times/wk Pt. in agreement with treatment plan. Total Minutes (Speech Language Pathology): 14 Davy Sierra MS, [facility]-MARINE RADIO INSTALLER AND SERVICER Pager: [phone] Speech-Language Pathology Inpatient Rehabilitation Department * Nj Kimball, BUSINESS PRACTICES OFFICER - 02/26/2021 10:38 AM EDT Trauma Daily [...] the trauma service for the management of [facility] injuries. Plan: Traumatic Injuries: Injury [...] discussed with the patient's daughter by telephone ([phone]). Acute in hospital issues: Acute pain -3 [...] diet Lines/Tubes/Drains: PIV, mckeon Consults (Please see inbound sales consultant notes): PT/OT Dispo: Home with VNA/Assist,CRC working on dispo plan Status: Floor Incidental Findings: Complex cystic lesion in the left interpolar kidney measuring 3.8 cm, indeterminate, recommend further characterization with ultrasound. [x] Incidental Findings Form Completed Nj Kimball APRN 02/26/2021 Trauma pager [phone] * Nj Kimball APRN - 02/26/2021 10:26 [...] CASE INFORMATION: None FOLLOW-UP NEEDED: Specify Trauma ECONOMETRICS PROFESSOR or Attending and time frame (please indicate reason if attending provider): BUSINESS PRACTICES OFFICER in 2 weeks Imaging and Referral orders [...] and transferred to ICU, then transferred to [facility] on 02/22/21. Pt now [facility] w/ reporting probable DC to home tomorrow [...] falls, but does endorse frequent admissions to [facility] recently, and one stint at rehab. [...] Precautions/Special Considerations:?? Fall risk, SBP <160, PIV, PAIMIUT, activity as tolerated; seizure precautions- pads in [...] activities, home management YANET STOKES, PT Pager: [phone] Physical Therapy Inpatient Rehabilitation Department * Oralia [...] encounter: 58.8 kg (129 lb 10.1 oz). [place] Body Weight: 73 kg Usual Body Weight: [...] lb 9.6 oz) Assessment: Estimated needs: Calories: 8729-0815 (25-30 kcal/kg +500 for wt gain) Protein: 88-118 grams (1.5-2 g/kg) Nutrition Focused Physical Exam (NFPE): Performed on 02/25 by CL. Subcutaneous fat loss at Orbital region: Severe Upper arm region (triceps/biceps): Moderate Thoracic and lumbar region (ribs, lower back and maxillary line): Severe Lean muscle loss to [place] region (temporalis muscle): Severe Clavicle bone region [...] look the same as those POW from [facility] or the [facility] survivors. Pt reports his at home has [...] seeing outpt nutrition again. Provided pt with bond writer's contact info if further questions arise, [...] up while inpatient Oralia Oakes RD Pager #:[phone] * Lacey Hamlin OTA - 02/25/2021 10:17 [...] times/wk Total Minutes, Occupational Therapy: 25 Pager: [phone] GERARDO BALLESTEROS 02/25/2021 Occupational Therapy Rehabilitation Department [...] diet Lines/Tubes/Drains: PIV, mckeon Consults (Please see inbound sales consultant notes): PT/OT Dispo: TBD,CRC working on dispo plan Status: Floor Incidental Findings: Complex cystic lesion in the left interpolar kidney measuring 3.8 cm, indeterminate, recommend further characterization with ultrasound. [x]? Incidental Findings Form Completed Charleen Colby MD 02/25/2021 Trauma pager [phone] I saw and evaluated the patient with [...] and transferred to ICU, and transferred to [facility] on 02/22/21. Interval History: 02/21/21- CT revealing increased size of hygroma and seizure earlier in the day- to ICU on 02/21/21; Stable hygroma on repeat Head CT 02/22 to [facility] on 02/22/21 Social History: Patient is somewhat of poor historian. Reports he lives with his (Canoe-y phonetically) in asingle level house with 4 sets of stairs to enter. Sleeps in a regular bet but does have reclinerchair if needed. Typically ambulates without AD but sometimes his holds onto his shirt. He denies other hx of falls, but does endorse frequent admissions to [facility] recently, and one stint at rehab. [...] Precautions/Special Considerations: Fall risk, SBP <160, PIV, PAIMIUT, activity as tolerated; seizure precautions- pads in [...] Pt in bed getting cleaned up with staffing analyst after incontinence episode. Pt friendly, but a [...] Therapy: 34 (functional mobility) GA ORANTES, PT Pager:[phone] Physical Therapy Inpatient Rehabilitation Department * Kaci [...] diet Lines/Tubes/Drains: PIV, mckeon Consults (Please see inbound sales consultant notes): PT/OT Dispo: TBD,CRC working on dispo plan Status: Floor Incidental Findings: Complex cystic lesion in the left interpolar kidney measuring 3.8 cm, indeterminate, recommend further characterization with ultrasound. [x]? Incidental Findings Form Completed Charleen Colby MD 02/24/2021 Trauma pager [phone] ADDENDUM: I have independently seen and evaluated [...] forgetful. VSS, RA. 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 We will keep his mcekon in-place for his admission per his Urologist, [...] Bowel Regimen Miralax BID Senna ?? LBM: DESIGN ENGINEER [employer]ODUCTS Acute UTI - CTX x7 days - [...] diet Lines/Tubes/Drains: PIV, mckeon Consults (Please see inbound sales consultant notes): PT/OT Dispo: TBD,CRC working on dispo plan Status: Floor Incidental Findings: Complex cystic lesion in the left interpolar kidney measuring 3.8 cm, indeterminate, recommend further characterization with ultrasound. [x]? Incidental Findings Form Completed Charleen Colby MD 02/23/2021 Trauma pager [phone] ADDENDUM: I have independently seen and evaluated [...] 02/22/2021 3:55 PM EDT Patient transferred to [facility]. Report given to receiving RN. All [...] displacement of the left hemisphere and mild ziit-ol-szviv midline shift measuring 7 mm at the [...] ?? Bowel Regimen Miralax BID ?? LBM: DESIGN ENGINEER [employer]ODUCTS - Acute pain Assessment: Narcisa Eduardo is [...] Bowel Regimen Miralax BID Senna ?? LBM: DESIGN ENGINEER [employer]ODUCTS Acute UTI - CTX x7 days - [...] diet Lines/Tubes/Drains: PIV, mckeon Consults (Please see inbound sales consultant notes): PT/OT Dispo: TBD,CRC working on dispo plan Status: Floor Incidental Findings: Complex cystic lesion in the left interpolar kidney measuring 3.8 cm, indeterminate, recommend further characterization with ultrasound. [x]? Incidental Findings Form Completed Pam Padilla, CHOLO 02/22/2021 Trauma pager [phone] ADDENDUM: I have independently seen and evaluated [...] nausea and no vomiting Last Bowel Movement: (DESIGN ENGINE[employer]ODU[employer]) Patient education / questions: all nutrition related questions answered at this time, to be seen [facility] to follow weekly through hospital course unless consulted in the interim. 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 Electronically signed by: Corey Rivers MD, [facility] ([phone]), at 02/18/2021 8:[address] Head & [...] who have questions please contact the health home visit field care manager that requested your imaging first. Electronically signed by: Naty Chaidez [facility] ([phone]), at 02/18/2021 9:[address] Thoracic Spine Reconstruction (Exam End: 02/18/2021 8:43 [...] who have questions please contact the health home visit field care manager that requested your imaging first. Electronically signed by: Damian Duggan MD, [facility] ([phone]), at 02/18/2021 11:[address] Lumbar Spine [...] who have questions please contact the health home visit field care manager that requested your imaging first. Electronically signed by: Damian Duggan MD, [facility] ([phone]), at 02/18/2021 11:[address] Face wo [...] who have questions please contact the health home visit field care manager that requested your imaging first. Electronically signed by: Naty Chaidez [facility] ([phone]), at 02/18/2021 9:[address] Chest Abdomen Pelvis wo Contrast (Exam End: [...] who have questions please contact the health home visit field care manager that requested your imaging first. Electronically signed by: Damian Duggan MD, [facility] ([phone]), at 02/18/2021 11:49 PM XR Fluoro Barium [...] who have questions please contact the health home visit field care manager that requested your imaging first. Electronically signed by: Arnel Story MD, [facility] ([phone]), at 02/20/2021 1:[address] Head wo Contrast (Generic) (Exam End: 02/21/2021 3:51 PM) Impression 1. Decreased supratentorial and infratentorial subarachnoid hemorrhage. Intraventricular hemorrhages are stable to minimally decreased. 2. 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 5 mm sdxg-gt-aisxa midline shift is stable. Thank you for letting us participate in the care of this patient. If you are a health care provider and have any questions regarding this report, please contact the number below. For patients who have questions please contact the health home visit field care manager that requested your imaging first. Electronically signed by: Silvia Ling MD, [facility] ([phone]), at 02/21/2021 4:[address] Head wo [...] who have questions please contact the health home visit field care manager that requested your imaging first. Electronically signed by: Corey Rivers MD, [facility] ([phone]), at 02/22/2021 4:34 AM Active Hospital Problems [...] lymphoma (s/p unk chemo regimen at the DC, in remission as of 07/12), hypertension, CVA [...] mass effect with sulcal effacement. 5 mm asuf-rw-onvcc midline shift is stable. 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 Electronically signed by: Corey Rivers MD, [facility] ([phone]), at 02/18/2021 8:[address] Head & [...] who have questions please contact the health home visit field care manager that requested your imaging first. Electronically signed by: Naty Chaidez [facility] ([phone]), at 02/18/2021 9:[address] Thoracic Spine Reconstruction (Exam End: 02/18/2021 8:43 [...] who have questions please contact the health home visit field care manager that requested your imaging first. Electronically signed by: Damian Duggan MD, [facility] ([phone]), at 02/18/2021 11:[address] Lumbar Spine [...] who have questions please contact the health home visit field care manager that requested your imaging first. Electronically signed by: Damian Duggan MD, [facility] ([phone]), at 02/18/2021 11:[address] Face wo [...] who have questions please contact the health home visit field care manager that requested your imaging first. Electronically signed by: Naty Chaidez [facility] ([phone]), at 02/18/2021 9:[address] Chest Abdomen Pelvis wo Contrast (Exam End: [...] who have questions please contact the health home visit field care manager that requested your imaging first. Electronically signed by: Damian Duggan MD, [facility] ([phone]), at 02/18/2021 11:49 PM XR Fluoro Barium [...] who have questions please contact the health home visit field care manager that requested your imaging first. Electronically signed by: Arnel Story MD, [facility] ([phone]), at 02/20/2021 1:[address] Head wo Contrast (Generic) (Exam End: 02/21/2021 3:51 PM) Impression 1. Decreased supratentorial and infratentorial subarachnoid hemorrhage. Intraventricular hemorrhages are stable to minimally decreased. 2. 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 5 mm sufc-iw-uwxzh midline shift is stable. Thank you for letting us participate in the care of this patient. If you are a health care provider and have any questions regarding this report, please contact the number below. For patients who have questions please contact the health home visit field care manager that requested your imaging first. Electronically signed by: Silvia Ling MD, [facility] ([phone]), at 02/21/2021 4:09 PM Active Hospital Problems [...] times/wk Total Minutes, Occupational Therapy: 22 Pager: [phone] Dawn Black OT 02/21/2021 Occupational Therapy Rehabilitation [...] mass effect with sulcal effacement. 5 mm khoz-de-xmetw midline shift is stable. 5:27 PM * [...] health care YANET STOKES, PT Pager # [phone] In-Pt Rehab Medicine * Jen Erickson MD [...] L Finger flexion 4/5 R 4/5 L Room Service Manager LE: 5/5 R 5/5 L Knee extension [...] Procedure Component Value Units Date/Time Urine culture [[id number]] (Abnormal) (Susceptibility) Collected: 02/18/212012 Lab Status: Final [...] who have questions please contact the health home visit field care manager that requested your imaging first. Electronically signed by: Naty Chaidez [facility] ([phone]), at 02/18/2021 9:[address] head and neck 08/27/20 IMPRESSION: 1. There [...] Telemedicine visit by Dr. Post Neurology at [facility] on 01/13/2021: initially put on keppra 750mg BID for witnessed focal seizure 06/2020 but that was switched to depakote for mood changes. Most recent reported, witnessed seizure 01/05/2021 after which he was admitted to [facility] and switched from depakote in November due to diarrhea - put on lacosamide 50mg BID. Per daughter at bedside, patient's witnessed patient in bed with UE flexion/rigidity and his eyes rolled in the back of his head. Similar eye movements and rigidity were described during seizure events this past Fall. After admission at [facility] patient's Vimpat increased outpatient byDrJorge A Villa [...] MD Neurology, PGY-3 Neurology Consult Service, pager #[phone] 02/21/2021 Associated attestation - Leandro Bowen MD [...] studies. Ragini Bowen MD Department of Neurology [facility] * Charleen Colby MD - 02/21/2021 1:44 [...] ?? Bowel Regimen Miralax BID ?? LBM: DESIGN ENGINEER [employer]ODU[employer] - Acute pain Assessment: Narcisa Eduardo is [...] Bowel Regimen Miralax BID Senna ?? LBM: DESIGN ENGINEER [employer]ODU[employer] ?? Resolved in hospital issues: none Chronic [...] diet Lines/Tubes/Drains: PIV, mckeon Consults (Please see inbound sales consultant notes): PT/OT Dispo: TBD,CRC working on dispo plan Status: Floor Incidental Findings: Complex cystic lesion in the left interpolar kidney measuring 3.8 cm, indeterminate, recommend further characterization with ultrasound. [x]? Incidental Findings Form Completed Charleen Colby MD 02/21/2021 Trauma pager [phone] * Mamta Jaquez RN - 02/20/2021 6:08 [...] radiation admitted on 02/18/2021 In transfer from [facility] for fall from standing. . ?? [...] home. He was being followed by a MARINE RADIO INSTALLER AND SERVICER who he states was considering thickening his liquids. Denies having a MBS. Reports difficulty initiating a swallow. MARINE RADIO INSTALLER AND SERVICER taught him to put downward pressure with [...] time;Decreased safety awareness;Decreased safety awareness; Poor medical assistant float; Positioning: Sitting in Haustead chair at approximately [...] for now. Pt would benefit from skilled MARINE RADIO INSTALLER AND SERVICER services to maximize swallow function and safety [...] and safe swallowing strategies. Plan: Therapy Frequency (MARINE RADIO INSTALLER AND SERVICER Eval): 1-3 times/wk Pt. in agreement with treatment plan. Total Minutes (Speech Language Pathology): 57 Thank you for this consult with this patient. Please feel free to page me with any questions or concerns. Davy Sierra MS, [facility]MARINE RADIO INSTALLER AND SERVICER Pager: [phone] Speech-Language Pathology Inpatient Rehabilitation Department * Charleen [...] ?? Bowel Regimen Miralax BID ?? LBM: DESIGN ENG[employer] - Acute pain Assessment: Narcisa Eduardo is [...] Bowel Regimen Miralax BID Senna ?? LBM: DESIGN ENG[employer] ?? Resolved in hospital issues: none Chronic [...] diet Lines/Tubes/Drains: PIV, mckeon Consults (Please see inbound sales consultant notes): PT/OT Dispo: TBD,CRC working on dispo plan Status: Floor Incidental Findings: Complex cystic lesion in the left interpolar kidney measuring 3.8 cm, indeterminate, recommend further characterization with ultrasound. []? Incidental Findings Form Completed Charleen Colby MD 02/20/2021 Trauma pager [phone] * Joana Portillo RN - 02/19/2021 6:28 PM EDT Illness Severity [x] Stable [] Watcher [] Unstable Patient Summary Reason for admission: Admitted for SDH. Pt had a ground level fall after an appointment with his PCP for urinary retention. Pt was then picked up by [facility], brought to [place] [facility] and was found to have a SDH. Transferred to [facility] for monitoring/treatment. On admission, no facial fractures [...] Ward MSW - 02/19/2021 5:56 PM EDT FACTORY LABORER met with pt while his spouse and dtr were visiting. Billing Analyst was following up from his conversation with Dr. Reese regarding identifying available resources for adult day programs. Billing Analyst provided pt with a list of programs in his geographic area. Pts dtr also noted that she is willing to adjust her work schedule to allow her to visit pt more frequently throughout the week. Pts spouse also mentioned having some friends who have a nursing background and she will be inquiring on their availability. Billing Analyst provided pt/family with my contact information and will remain available throughout pts dispo * Linnea Muhammad PA - 02/19/2021 5:34 PM EDT Brief Neurosurgery Progress Note Narcisa Eduardo is a 75 y.o. male with PMH of HTN, non-Hodgkin's lymphoma, CVA [distal MCA occlusion/RIGHT frontal infarct], history of aneurysm s/p embolization, seizures [on lacosamide - last seizure was 01/05/2021] who presented in transfer from [place] ED for evaluation and management of injuriessustained [...] Neurosurgery is signing off Please page Neurosurgery [phone] with questions. RASHIDA MoctezumaC * Elaina Johnson [...] HOSPITAL Dr Ko ??? PROSTATE BIOPSY 11/23/2019 Social [...] falls, but does endorse frequent admissions to [facility] recently, and one stint at rehab. He has a fear of falling/fear of use of walkers (reports they are going to run away on him) He reports assists PRN with hygiene, toileting, ADLs and all IADLs. Precautions/Special Considerations: Fall risk, SBP <160, PIV, PAIMIUT, activity as tolerated Mobility and Positioning Recommendations: [...] outlinedin this evaluation. Time IN / OUT: 6041-6770 Total Minutes, Physical Therapy: 45 (Eval) Thank you for this consult. Elaina Johnson, PT Pager: [phone] Physical Therapy Inpatient Rehabilitation Department * Davy Sierra, MARINE RADIO INSTALLER AND SERVICER - 02/19/2021 11:46 AM EDT Speech Therapy Bedside Swallow Evaluation Patient Profile: Narcisa Eduardo is a 75 y.o. male with a past medical history significant for R MCA stroke (ESUS, Sep 2019) c/b seizure disorder, L SDH s/p MMA embolization (Aug 2020), follicular lymphoma in remission, and prostate cancer s/p radiation admitted on 02/18/2021 In transfer from [facility] for fall from standing. . Injuries [...] home. He was being followed by a MARINE RADIO INSTALLER AND SERVICER who he states was considering thickening his liquids. Denies having a MBS. Reports difficulty initiating a swallow. MARINE RADIO INSTALLER AND SERVICER taught him to put downward pressure with [...] safety awareness; Decreased safety awareness; Poor medical assistant float; Perseveration; Impulsive Follows Commands: Follows multi-step commands [...] dysphagia and being followed by an outside MARINE RADIO INSTALLER AND SERVICER. In the process of trying to obtain [...] function at bedside and reports that previous MARINE RADIO INSTALLER AND SERVICER was considering placing Pt on thickened liquids. MBS is tentatively scheduled for 11:00 on 02/20/21. RN to discuss swallowing history with Pt's as she is on route and contact MARINE RADIO INSTALLER AND SERVICER with any concerns. Diagnosis: Oral phase dysphagia; [...] oral care Pt will benefit from continued MARINE RADIO INSTALLER AND SERVICER services while hospitalized; Anticipate Pt will require MARINE RADIO INSTALLER AND SERVICER services in discharge setting Speech Therapy Goals: (To be met by discharge) Pt will tolerate least restrictive diet without evidence of dysphagia / aspiration. Pt / caregiver will be independent with aspiration precautions, diet modifications, and safe swallowing strategies. Plan: Therapy Frequency (MARINE RADIO INSTALLER AND SERVICER Eval): 2-4 times/wk Pt. in agreement with treatment plan. Total Minutes (Speech Language Pathology): 49 Thank you for this consult with this patient. Please feel free to page me with any questions or concerns. Davy Sierra, MS, [facility]MARINE RADIO INSTALLER AND SERVICER Pager: [phone] Speech-Language Pathology Inpatient Rehabilitation Department * Rao [...] L Finger flexion 5/5 R 5/5 L Room Service Manager 5/5 R 5/5 L APB LE: 5/5 [...] in the last 7068 hours. Invalid input(s): [id number] No results for input(s): HA1C in the [...] who have questions please contact the health home visit field care manager that requested your imaging first. Electronically signed by: Corey Rivers MD, [facility] ([phone]), at 02/18/2021 8:[address] Head & [...] who have questions please contact the health home visit field care manager that requested your imaging first. Electronically signed by: Naty Chaidez [facility] ([phone]), at 02/18/2021 9:[address] Thoracic Spine Reconstruction (Exam End: 02/18/2021 8:43 [...] who have questions please contact the health home visit field care manager that requested your imaging first. Electronically signed by: Naty Chaidez [facility] ([phone]), at 02/18/2021 9:[address] Chest Abdomen Pelvis wo Contrast (Exam End: [...] stroke or current bleed. Aside for continuing DESIGN ENGINEER PRODUCTS seizure meds, no other recommendations currently advised. [...] if further consultation required. Rao Rojaston MS4 [facility] 02/19/2021 Neurology Consult Service, pager #[phone] * Tayler Reese MD - 02/19/2021 8:16 [...] is a 75 y.o. male presents to [facility] s/p fall from standing. Description of events leading up to injury includes: Patient was outside [facility], there for a urinary retention and PCP appointment, was sitting on a bench. His went to get the car and heard a thud. She turned ar ound and saw him on the cement unresponsive, reportedly for two minutes. Patient was seen by [facility] and brought to Emergency Room. He was found to have a subdural hematoma and was transferred to [facility] for further management. ?? Primary survey revealed: [...] HOSPITAL Dr Ko ??? PROSTATE BIOPSY 11/23/2019 HOME [...] who have questions please contact the health home visit field care manager that requested your imaging first. Electronically signed by: Damian Duggan MD, [facility] ([phone]), at 02/18/2021 11:49 PM XR Chest AP [...] who have questions please contact the health home visit field care manager that requested your imaging first. Electronically signed by: Corey Rivers MD, [facility] ([phone]), at 02/18/2021 8:[address] Face wo [...] who have questions please contact the health home visit field care manager that requested your imaging first. Electronically signed by: Naty Chaidez [facility] ([phone]), at 02/18/2021 9:[address] Head & Cervical Spine wo [...] who have questions please contact the health home visit field care manager that requested your imaging first. Electronically signed by: Naty Chaidez [facility] ([phone]), at 02/18/2021 9:06 PM Film Library- Storage Only CT Head [...] who have questions please contact the health home visit field care manager that requested your imaging first. Electronically signed by: Damian Duggan MD, [facility] ([phone]), at 02/18/2021 11:[address] Thoracic Spine [...] who have questions please contact the health home visit field care manager that requested your imaging first. Electronically signed by: Damian Duggan MD, [facility] ([phone]), at 02/18/2021 11:49 PM ASSESSMENT/SUMMARY OF INJURIES: [...] q6hr SCHED - hydromorphone Bowel Regimen LBM: DESIGN ENGINEER PRODUCTS Tetanus status: unknown Admission UA: Blood, WBC, [...] Tim Lines/Tubes/Drains: PIV, mckeon Consults (Please see inbound sales consultant notes): PT/OT, NSGY Dispo: TBD,CRC working on dispo plan Status: Stepdown NSCU Incidental Findings- Complex cystic lesion in the left interpolar kidney measuring 3.8 cm, indeterminate, recommend further characterization with ultrasound. [] Incidental Findings Form Completed Charleen Colby MD 02/19/2021 Trauma pager [phone] documented in this encounter H&P Notes * Feliciano Estrada MD - 02/18/2021 8:54 PM EDT Trauma Surgery Admission History & Physical Patient Name: Narcisa Eduardo Level of Activation: Alert MR#: [id number] [ ] Scene Call or [X] Hospital Transfer : [id number] CC/MECHANISM OF INJURY: 75 y.o. Male s/p fall from standing, on 02/18 HISTORY OF PRESENT ILLNESS: Narcisa Eduardo is a 75 y.o. male presents to [facility] s/p fall from standing. Description of events leading up to injury includes: Patient was outside [facility], there for a urinary retention and PCP appointment, was sitting on a bench. His went to get the car and heard a thud. She turned ar ound and saw him on the cement unresponsive, reportedly for two minutes. Patient was seen by [facility] and brought to Emergency Room. He was found to have a subdural hematoma and was transferred to [facility] for further management. Primary survey revealed: intact [...] HOSPITAL Dr Ko ??? PROSTATE BIOPSY 11/23/2019 ALLERGIES: [...] mcL Appearance UA Cloudy (A) Clear Spec Bentley UA 1.011 1.005 - 1.030 Color UA [...] ?? Consulting Services and plans: 1. [facility] [place] [place] 2. Neurology ?? Spine status: final reads pending, no C spine fracture, see precautions as ordered ?? Pain control: tylenol, prn dilaudid ?? DVT prophylaxis: Mechanical compression ?? GI prophylaxis: None ?? Tertiary survey in AM ?? [facility] Carmelo Ventura MD 02/18/2021 Trauma Surgery Attending Addendum: I was present on patient arrival and for the initial evaluation,and have discussed the plan with the resident staff. I agree with the above note with the followingadditions and/or modifications. Received in transfer from [facility] as a Trauma Alert for SDH after [...] who have questions please contact the health home visit field care manager that requested your imaging first. Electronically signed by: Corey Rivers MD, [facility] ([phone]), at 02/18/2021 8:[address] Head & [...] who have questions please contact the health home visit field care manager that requested your imaging first. Electronically signed by: Naty Chaidez [facility] ([phone]), at 02/18/2021 9:[address] Thoracic Spine Reconstruction (Exam End: 02/18/2021 8:43 [...] who have questions please contact the health home visit field care manager that requested your imaging first. Electronically signed by: Damian Duggan MD, [facility] ([phone]), at 02/18/2021 11:[address] Lumbar Spine [...] who have questions please contact the health home visit field care manager that requested your imaging first. Electronically signed by: Damian Duggan MD, [facility] ([phone]), at 02/18/2021 11:[address] Face wo [...] who have questions please contact the health home visit field care manager that requested your imaging first. Electronically signed by: Naty Chaidez [facility] ([phone]), at 02/18/2021 9:[address] Chest Abdomen Pelvis wo Contrast (Exam End: [...] who have questions please contact the health home visit field care manager that requested your imaging first. Electronically signed by: Damian Duggan MD, [facility] ([phone]), at 02/18/2021 11:49 PM Film Library- Storage [...] to have subdural hematoma and transferred to [facility] for further evaluation On arrival [...] the Emergency Department as trauma transfer from [facility] for neurosurgical evaluation after ground level fall [...] [facility] & [facility], [place] [address] [facility] [address] Transportation: family or friend will provide Functional status prior to admission: Independent Home Environment: Others in the home: spouse. Current Living Arrangements: home/apartment/condo. Current Functional Ability: Assistive Person and Equipment DME used at home: none DME Needed at DC: None Patient is insured through: Primary Insurance: VACCN OPTVINCENT Payor: TANO DE LA ROSA / Plan: [facility] CARE / Product Type: *No Product type* / Secondary Insurance: N/A Prescription Coverage: Yes Preferred Pharmacy: [facility] [place] [place] [address] [facility] [address] [facility] [place] [address] [facility] [address] [facility] [place] [address] [facility] - [place], [place] - [address] [facility] [address] [facility] [id number] This plan was formulated with input from [...] copy of the Important Message. Chris Salazar storekeeper helper Pgr: [phone] * Plan of Care - [...] None Patient is insured through: Primary Insurance: [facility] OPT Payor: [facility] / Plan: [facility] CARE / Product Type: *No Product type* / Secondary Insurance: N/A Prescription Coverage: Yes Preferred Pharmacy: [facility] [place] [place] [address] [facility] [place] [address] [facility] [place] [address] [facility] [address] [facility] [address] [facility] - [place], [place] - [address] [facility] [address] [facility] [address] Last Physical Therapy Recommendation: home with home [...] discharge home today w/ VNA services. The patient/credit resolution representative has been provided a list of Home Health Agencies/DME vendors which serve their preferred geographic area. A letter describing our affiliations was reviewed with them and they were educated about their right to choose where referrals are placed. Patient requests referral to [facility] Care Recorded Future. PHONE: [phone] FAX: [phone] Referral routed to the Dairy Technician for matching with agency/vendor and to provide [...] for the patient and therefore was removed. PROCESS LINE OPERATOR assisted patient to turn in the bed, [...] Tolerance: good Intake (%): 75% Current bed: [facility] with padded siderails Assessment: Skin [...] HOB higher than 30 degrees) Use a [employer] chair cushion beneath patient at all times [...] Please contact KATIE MADRID RN on pager [phone] or the wound care team at [phone] or pager [phone] with skin and wound care concerns or [...] Eduardo would be surrogate decision maker per [place] surrogate decision making law. (Only good for 90 days) Any patient receiving care at [facility] must abide by [place] law. The hierarchy for surrogate decision making [...] (i) The agent with financial power of title attorney or a conservator appointed in accordance with RSA 464-A. (j) The guardian of the patient???s estate. Current Coping/Education/Information Needs: n/a Current Functional Ability: Assistive Equipment and Assistive Person Functional Status Prior to Admission: Independent Home Environment: People in home: spouse. Current Living Arrangements: home/apartment/condo. Current DME: none Home Address [address] [place] [id number] Social & Family Supports: Extended Emergency Contact [...] VACCN OPTUM Payor: VAC[employer] OPTUM / Plan: [place] OPT COMMUNITY CARE / Product Type: *No Product type* / Secondary Insurance: N/A Prescription Coverage: Yes Preferred Pharmacy: [facility] [place] [place] [address] [facility] [address] [facility] [place] - [address] [facility] [place] [address] [facility] - [place], [place] - [address] [facility] [address] [facility] [address] Status: Patient is a : Yes Are you enrolled in the [place] for your healthcare?: Yes Are you here under your VA benefit?: Yes Primary Care Provider: Alfredo Montoya DO [phone] Patient/Caregiver Goals of Treatment: Return home Potential Needs for Transition of Care: rehabilitation services Agency Referrals: n/a Transportation: no concerns Transportation Anticipated: family or friend will provide Concerns to be Addressed: discharge planning Assessment: Narcisa Eduardo is a 75yo male here for subarachnoid hemorrhage and subdural hemorrhage. Lives at home w/ spouse. Insured w/ Medicare and VA. Gets medications filled at DC in [place]. Plan: Depending on recovery anticipate will discharge home w/ VNA services vs prison facility. A member of the Care Management team will continue to monitor progress, follow for continuity of care and assist with transition of care planning. Chris Salazar RN Case Manager Pgr: [phone] * Consult Note - Carmelita Mcdaniels RN [...] 02/19/2021 HCT 34.8 (L) 02/18/2021 Current bed: [facility] Assessment: Full thickness trauma wound to the [...] Please contact Carmelita Mcdaniels RN on pager [phone] or the wound care team at [phone] or pager [phone] with skin and wound care concerns or [...] HOSPITAL Dr Ko ??? PROSTATE BIOPSY 11/23/2019 Social [...] and measurable assessment of functional outcome. Pager: [phone] Dawn Black OT 02/19/2021 Occupational Therapy Rehabilitation Department * Consult Note - Alpa Alvarado MD - 02/19/2021 12:01 AM EDT Neurology Consultation Note - 02/18/2021 Patient name: Narcisa Eduardo Date of : 1945 PCP: Alfredo Montoya DO Primary Team: Trauma (#[id number]) CC: seizure medication management HPI: Narcisa Eduardo [...] Darrel. Following a visit to PCP in [place], asked himto wait on a bench while [...] ??? COLONOSCOPY 2012 date is approximate. at [facility] Dr Ko ??? PROSTATE BIOPSY 11/23/2019 Home [...] file Occupational History ??? 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 Occupation: [employer] Comment: [employer] Tobacco Use ??? Smoking status: Current Every [...] EtOH: none Drugs: none Lives with in [place], [place]. Served in [employer]. Stationed in [employer], [place] and [place]. Physical Exam: Vitals: Temp: -- Heart Rate: [...] mcL Appearance UA Cloudy (A) Clear Spec Bentley UA 1.011 1.005 - 1.030 Color UA [...] Value Ref Range T&S only valid at [facility] Hosp Rapid Drug Screen, Urine (CHRIS Request) [...] who have questions please contact the health home visit field care manager that requested your imaging first. Electronically signed by: Corey Rivers MD, [facility] ([phone]), at 02/18/2021 8:[address] Head & [...] who have questions please contact the health home visit field care manager that requested your imaging first. Electronically signed by: Naty Chaidez [facility] ([phone]), at 02/18/2021 9:[address] Thoracic Spine Reconstruction (Exam End: 02/18/2021 8:43 [...] who have questions please contact the health home visit field care manager that requested your imaging first. Electronically signed by: Naty Chaidez [facility] ([phone]), at 02/18/2021 9:[address] Chest Abdomen Pelvis wo Contrast (Exam End: [...] studies. Ragini Bowen MD Department of Neurology [facility] * Consult Note - Chloé Hummel APRN [...] was 01/05/2021] who presented in transfer from [place] ED for evaluation and management of injuries [...] He was taken to the ED at [facility] where he was found to have [...] HOSPITAL Dr Ko ??? PROSTATE BIOPSY 11/23/2019 Medications: [...] on file Occupational History ??? 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 Occupation: [employer] Comment: [employer] Tobacco Use ??? Smoking status: Current Every [...] was 01/05/2021] who presented in transfer from [place] [facility] for evaluation and management of injuries [...] EDT Office Visit Radiation Oncology at [address] [phone] Taya De La Vega PA [facility] [place] [address] 11/13/2024 2:00 PM EDT Office Visit Hematology/Oncology at [address] [phone] Kirt Kennedy MD [facility] DR HEMATOLOGY [place] [address] Alem Lazaro APRN [address] [place] [address] DR [place] [address] documented as of this encounter [...] Unchanged left subdural hygroma with similar fashion [id number]-[id number] midline shift compared to prior CT. 2. [...] who have questions please contact the health home visit field care manager that requested your imaging first. ? Electronically signed by: Jeffrey Sultana MD, [facility] ([phone]), at 03/14/2021 11:50 AM Narrative 03/14/2021 11:50 [...] Unchanged left subdural hygroma with similar fashion nrda-[id number] shift compared to prior CT. 2. Expected [...] patients who have questions please contactthe health home visit field care manager that requested your imaging first. Electronically signed by: Jeffrey Sultana MD, [facility]([phone]), at 03/14/2021 11:50 AM Damian Vazquez MD IMG CT ORDERABLES * CT Head wo Contrast (Generic) (02/26/2021 10:07 AM EDT) Anatomical Region Laterality Modality Head Computed Tomogra phy 02/26/2021 10:2 4 AM EDT Impressions 02/26/2021 11:30 AM EDT 1. ??Unchanged left subdural collection with mass effect and 5 mm jvwr-gt-syqyi midline shift. 2. ??Evolution of left-sided subarachnoid [...] who have questions please contact the health home visit field care manager that requested your imaging first. [...] subdural collection with mass effect and 5 lomyjt-gw-ixojw midline shift. 2. Evolution of left-sided subarachnoid hemorrhage. Unchanged intraventricular/septum pellucidum hemorrhage. 3. Remote right MCA infarction involving the right frontal lobe. 4. 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 Consider CT angiogram for further evaluation. I have personally reviewed the image(s) and the resident's interpretationand agree with the findings, Marissa Alejadnre at 02/26/2021 11:30 AM Thank you for letting us participate in the care of this patient. If youare a health care provider and have any questions regarding this report,please contact the number below. For patients who have questions please contactthe health home visit field care manager that requested your imaging first. Nj Kimball [employer] OFFICER IMG CT ORDERABLES * (ABNORMAL) Differential, Automated (02/26/2021 4:04 AM EDT) Neutrophil % 72.4 % [facility] Neutrophil Absolute 4.95 1.70 - 6.10 x10(3)/mc L [facility] Lymph % 14.5 % [facility] Lymphocytes Abs 1.0 0.9 - 3.2 x10(3)/[facility] Monocyte % 8.9 % [facility] Monocyte Abs 0.6 0.3 - 0.9 x10(3)/[facility] Eos % 3.1 % [facility] Eosinophils Abs 0.2 0.0 - 0.4 x10(3)/[facility] Basophil % 0.4 % [facility] Baso Absolute 0.0 0.0 - 0.1 x10(3)/[facility] Immature Gran % 0.70 % [facility] Comment: Immature granulocytes(IG's)percentage and absolute count will include metamyelocytes, myelocytes, and promyelocytes. Blood smears from CBCs yielding IG's will be scanned manually for concordance. If this scan disagrees with the automated IG or if promyelocytes are noted, a manual differential will be performed. Immature Gran Absolute 0.05(H) 0.00 - 0.04 x10(3)/[facility] Blood 02/26/2021 4:04 AM EDT 02/26/2021 4:29 AM EDT Narrative Resulting Agency Comment Spec In Lab Pam Padilla APRN HEMATOLOGY ORDERAB LES Performing Organization Address City/State/[facility] Co de Phone Number [facility] [place] [address] * (ABNORMAL) Hemogram (02/26/2021 4:04 AM EDT) White Blood Cell 6.8 4.0 - 9.5 x10(3)/[facility] Red Blood Cell 3.80(L) 4.58 - 5.54 x10(6)/[facility] Hemoglobin 11.7(L) 13.7 - 16.5 gm/dL [facility] Hematocrit 36.4(L) 40.5 - 48.5 % [facility] Mean Cell Volume 95.8(H) 82.9 - 93.1 fL [facility] Mean Cell Hemoglobin 30.8 27.5 - 32.1 pg [facility] Mean Cell Hemoglobin Concentration 32.1 32.0 - 35.7 gm/dL [facility] Platelet 168 145 - 357 x10(3)/mc L [facility] RDW Standard Deviation 50.1(H) 36.0 - 45.0 fL [facility] RDW coefficient of variation 14.4(H) 11.4 - 13.8 % [facility] Mean Platelet Volume 8.9 7.6 - 12.9 [facility] NRBC% auto 0.0 % [facility] NRBC Absolute 0.000 0.000 - 0.000 x10(3)/mc L [facility] Blood 02/26/2021 4:04 AM EDT 02/26/2021 4:29 AM EDT Narrative Resulting Agency Comment Spec In Lab Pam Padilla APRN HEMATOLOGY ORDERAB LES Performing Organization Address City/[facility]/ZIP Co de Phone Number [facility] [place] [address] * Phosphorus (02/26/2021 4:04 AM EDT) Phosphorus 3.6 2.5 - 4.5 mg/dL [facility] Blood 02/26/2021 4:04 AM EDT 02/26/2021 4:29 AM EDT Narrative Resulting Agency Comment Spec In Lab Pam Padilla APRN CHEMISTRY ORDERABL ES Performing Organization Address [facility]/ZIP Co de Phone Number [facility] [place] [address] * Magnesium (02/26/2021 4:04 AM EDT) Magnesium 0.85 0.69 - 1.07 mmol/L [facility] Blood 02/26/2021 4:04 AM EDT 02/26/2021 4:29 AM EDT Narrative Resulting Agency Comment Spec In Lab Pam J Randy [employer] OFFICER CHEMISTRY ORDERABL ES [facility] [place] [address] * (ABNORMAL) Basic Metabolic Panel (non-fasting) (02/26/2021 4:04 AM EDT) Glucose 103 65 - 199 mg/dL [facility] Comment:Diabetes: >=200 mg/d L plus symptoms Blood Urea Nitrogen 11 10 - 20 mg/dL [facility] Creatinine 0.70(L) 0.80 - 1.50 mg/dL [facility] Sodium 139 135 - 145 mmol/L [facility] Potassium 4.1 3.5 - 5.0 mmol/L [facility] Comment: Please note: ??Patients with WBC >100,000 may have falsely elevated Potassium levels. ??For accurate Potassium quantification in these patients send serum separator tube (gold top) for subsequent determinations. ??Contact the Clinical Chemistry Laboratory if there are any questions. Chloride 105 98 - 107 mmol/L [facility] Carbon Dioxide 27 22 - 31 mmol/L [facility] Anion Gap 7 5 - 15 mmol/L [facility] Calcium 9.1 8.5 - 10.5 mg/dL [facility] Est Glomerular Filtration Rate 92 >=60 mL/min/1. 73 m?? [facility] Comment: This patient? s estimated [...] Agency Comment Spec In Lab Pam Padilla [employer] OFFICER CHEMISTRY ORDERABL ES [facility] [place] [address] * (ABNORMAL) Differential, Automated (02/25/2021 2:56 AM EDT) Neutrophil % 74.3 % [facility] Neutrophil Absolute 5.26 1.70 - 6.10 x10(3)/mc L [facility] Lymph % 14.3 % [facility] Lymphocytes Abs 1.0 0.9 - 3.2 x10(3)/mc L [facility] Monocyte % 7.2 % [facility] Monocyte Abs 0.5 0.3 - 0.9 x10(3)/mc L [facility] Eos % 3.1 % [facility] Eosinophils Abs 0.2 0.0 - 0.4 x10(3)/mc L [facility] Basophil % 0.3 % [facility] Baso Absolute 0.0 0.0 - 0.1 x10(3)/mc L [facility] Immature Gran % 0.80 % [facility] Comment: Immature granulocytes(IG's)percentage and absolute count will include metamyelocytes, myelocytes, and promyelocytes. Blood smears from CBCs yielding IG's will be scanned manually for concordance. If this scan disagrees with the automated IG or if promyelocytes are noted, a manual differential will be performed. Immature Gran Absolute 0.06(H) 0.00 - 0.04 x10(3)/mc L [facility] Blood 02/25/2021 2:56 AM EDT 02/25/2021 3:18 AM EDT Narrative Resulting Agency Comment Spec In Lab Pam Padilla [employer] OFFICER HEMATOLOGY ORDERAB LES [facility] [place] [address] * (ABNORMAL) Hemogram (02/25/2021 2:56 AM EDT) White Blood Cell 7.1 4.0 - 9.5 x10(3)/[facility] Red Blood Cell 3.72(L) 4.58 - 5.54 x10(6)/[facility] Hemoglobin 11.4(L) 13.7 - 16.5 gm/dL [facility] Hematocrit 35.2(L) 40.5 - 48.5 % [facility] Mean Cell Volume 94.6(H) 82.9 - 93.1 [facility] Mean Cell Hemoglobin 30.6 27.5 - 32.1 pg [facility] Mean Cell Hemoglobin Concentration 32.4 32.0 - 35.7 gm/dL [facility] Platelet 154 145 - 357 x10(3)/[facility] RDW Standard Deviation 49.1(H) 36.0 - 45.0 [facility] RDW coefficient of variation 14.2(H) 11.4 - 13.8 % [facility] Mean Platelet Volume 9.0 7.6 - 12.9 [facility] NRBC% auto 0.0 % [facility] NRBC Absolute 0.000 0.000 - 0.000 x10(3)/[facility] Blood 02/25/2021 2:56 AM EDT 02/25/2021 3:18 AM EDT Narrative Resulting Agency Comment Spec In Lab Pam Padilla APRN HEMATOLOGY ORDERAB LES Performing Organization Address [facility] Co de Phone Number [facility] [place] [address] * Phosphorus (02/25/2021 2:56 AM EDT) Phosphorus 3.5 2.5 - 4.5 mg/dL [facility] Blood 02/25/2021 2:56 AM EDT 02/25/2021 3:18 AM EDT Narrative Resulting Agency Comment Spec In Lab Pam Padilla APRN CHEMISTRY ORDERABL ES Performing Organization Address [facility] de Phone Number [facility] [place] [address] * Magnesium (02/25/2021 2:56 AM EDT) Magnesium 0.81 0.69 - 1.07 mmol/L [facility] Blood 02/25/2021 2:56 AM EDT 02/25/2021 3:18 AM EDT Narrative Resulting Agency Comment Spec In Lab Pam Padilla APRN CHEMISTRY ORDERABL ES Performing Organization Address [facility] Co de Phone Number [facility] [place] [address] * (ABNORMAL) Basic Metabolic Panel (non-fasting) (02/25/2021 2:56 AM EDT) Glucose 111 65 - 199 mg/dL [facility] Comment:Diabetes: >=200 mg/d L plus symptoms Blood Urea Nitrogen 10 10 - 20 mg/dL [facility] Creatinine 0.69(L) 0.80 - 1.50 mg/dL [facility] Sodium 139 135 - 145 mmol/L [facility] Potassium 4.1 3.5 - 5.0 mmol/L [facility] Comment: Please note: ??Patients with WBC >100,000 may have falsely elevated Potassium levels. ??For accurate Potassium quantification in these patients send serum separator tube (gold top) for subsequent determinations. ??Contact the Clinical Chemistry Laboratory if there are any questions. Chloride 104 98 - 107 mmol/L [facility] Carbon Dioxide 27 22 - 31 mmol/L [facility] Anion Gap 8 5 - 15 mmol/L [facility] Calcium 8.9 8.5 - 10.5 mg/dL [facility] Est Glomerular Filtration Rate 93 >=60 mL/min/1. 73 m?? [facility] Comment: This patient? s estimated [...] Lab Pam Padilla APRN CHEMISTRY ORDERABL ES [facility] [place] [address] * Differential, Automated (02/24/2021 4:24 AM EDT) Neutrophil % 77.1 % [facility] Neutrophil Absolute 6.02 1.70 - 6.10 x10(3)/[facility] Lymph % 12.0 % [facility] Lymphocytes Abs 0.9 0.9 - 3.2 x10(3)/[facility] Monocyte % 7.0 % [facility] Monocyte Abs 0.6 0.3 - 0.9 x10(3)/[facility] Eos % 2.8 % [facility] Eosinophils Abs 0.2 0.0 - 0.4 x10(3)/[facility] Basophil % 0.6 % [facility] Baso Absolute 0.0 0.0 - 0.1 x10(3)/[facility] Immature Gran % 0.50 % [facility] Comment: Immature granulocytes(IG's)percentage and absolute count will include metamyelocytes, myelocytes, and promyelocytes. Blood smears from CBCs yielding IG's will be scanned manually for concordance. If this scan disagrees with the automated IG or if promyelocytes are noted, a manual differential will be performed. Immature Gran Absolute 0.04 0.00 - 0.04 x10(3)/[facility] Blood 02/24/2021 4:24 AM EDT 02/24/2021 5:09 AM EDT Narrative Resulting Agency Comment Spec In Lab Pam Padilla APRN HEMATOLOGY ORDERAB LES [facility] [place] [address] * (ABNORMAL) Hemogram (02/24/2021 4:24 AM EDT) White Blood Cell 7.8 4.0 - 9.5 x10(3)/mc L [facility] Red Blood Cell 3.71(L) 4.58 - 5.54 x10(6)/mc L [facility] Hemoglobin 11.6(L) 13.7 - 16.5 gm/dL [facility] Hematocrit 36.7(L) 40.5 - 48.5 % [facility] Mean Cell Volume 98.9(H) 82.9 - 93.1 fL [facility] Mean Cell Hemoglobin 31.3 27.5 - 32.1 pg [facility] Mean Cell Hemoglobin Concentration 31.6(L) 32.0 - 35.7 gm/dL [facility] Platelet 137(L) 145 - 357 x10(3)/mc L [facility] RDW Standard Deviation 50.1(H) 36.0 - 45.0 fL [facility] RDW coefficient of variation 14.0(H) 11.4 - 13.8 % [facility] Mean Platelet Volume 8.9 7.6 - 12.9 fL [facility] NRBC% auto 0.0 % [facility] NRBC Absolute 0.000 0.000 - 0.000 x10(3)/mc L [facility] Blood 02/24/2021 4:24 AM EDT 02/24/2021 5:09 AM EDT Narrative Resulting Agency Comment Spec In Lab Pam Padilla APRN HEMATOLOGY ORDERAB LES Performing Organization Address City/[facility]/ZIP Co de Phone Number [facility] [place] [address] * Phosphorus (02/24/2021 4:24 AM EDT) Phosphorus 3.4 2.5 - 4.5 mg/dL [facility] Blood 02/24/2021 4:24 AM EDT 02/24/2021 5:09 AM EDT Narrative Resulting Agency Comment Spec In Lab Pam Padilla APRN CHEMISTRY ORDERABL ES [facility] [place] [address] * Magnesium (02/24/2021 4:24 AM EDT) Magnesium 0.78 0.69 - 1.07 mmol/L [facility] Blood 02/24/2021 4:24 AM EDT 02/24/2021 5:09 AM EDT Narrative Resulting Agency Comment Spec In Lab Pam J Randy [employer] OFFICER CHEMISTRY ORDERABL ES [facility] [place] [address] * (ABNORMAL) Basic Metabolic Panel (non-fasting) (02/24/2021 4:24 AM EDT) Glucose 88 65 - 199 mg/dL [facility] Comment:Diabetes: >=200 mg/d L plus symptoms Blood Urea Nitrogen 8(L) 10 - 20 mg/dL [facility] Creatinine 0.51(L) 0.80 - 1.50 mg/dL [facility] Sodium 137 135 - 145 mmol/L [facility] Potassium 4.0 3.5 - 5.0 mmol/L [facility] Comment: Please note: ??Patients with WBC >100,000 may have falsely elevated Potassium levels. ??For accurate Potassium quantification in these patients send serum separator tube (gold top) for subsequent determinations. ??Contact the Clinical Chemistry Laboratory if there are any questions. Chloride 105 98 - 107 mmol/L [facility] Carbon Dioxide 25 22 - 31 mmol/L [facility] Anion Gap 7 5 - 15 mmol/L [facility] Calcium 8.9 8.5 - 10.5 mg/dL [facility] Est Glomerular Filtration Rate 105 >=60 mL/min/1. 73 m?? [facility] Comment: This patient? s estimated [...] Agency Comment Spec In Lab Pam Padilla [employer] OFFICER CHEMISTRY ORDERABL ES [facility] [place] [address] * Differential, Automated (02/23/2021 3:17 AM EDT) Neutrophil % 76.6 % [facility] Neutrophil Absolute 6.02 1.70 - 6.10 x10(3)/[facility] Lymph % 13.0 % [facility] Lymphocytes Abs 1.0 0.9 - 3.2 x10(3)/[facility] Monocyte % 7.5 % [facility] Monocyte Abs 0.6 0.3 - 0.9 x10(3)/[facility] Eos % 2.2 % [facility] Eosinophils Abs 0.2 0.0 - 0.4 x10(3)/[facility] Basophil % 0.4 % [facility] Baso Absolute 0.0 0.0 - 0.1 x10(3)/[facility] Immature Gran % 0.30 % [facility] Comment: Immature granulocytes(IG's)percentage and absolute count will include metamyelocytes, myelocytes, and promyelocytes. Blood smears from CBCs yielding IG's will be scanned manually for concordance. If this scan disagrees with the automated IG or if promyelocytes are noted, a manual differential will be performed. Immature Gran Absolute 0.02 0.00 - 0.04 x10(3)/[facility] Blood 02/23/2021 3:17 AM EDT 02/23/2021 3:25 AM EDT Narrative Resulting Agency Comment Spec In Lab Pam Padilla APRN HEMATOLOGY ORDERAB LES [facility] [place] [address] * (ABNORMAL) Hemogram (02/23/2021 3:17 AM EDT) White Blood Cell 7.8 4.0 - 9.5 x10(3)/mc L [facility] Red Blood Cell 3.62(L) 4.58 - 5.54 x10(6)/mc L [facility] Hemoglobin 11.1(L) 13.7 - 16.5 gm/dL [facility] Hematocrit 33.9(L) 40.5 - 48.5 % [facility] Mean Cell Volume 93.6(H) 82.9 - 93.1 fL [facility] Mean Cell Hemoglobin 30.7 27.5 - 32.1 pg [facility] Mean Cell Hemoglobin Concentration 32.7 32.0 - 35.7 gm/dL [facility] Platelet 114(L) 145 - 357 x10(3)/mc L [facility] RDW Standard Deviation 47.7(H) 36.0 - 45.0 fL [facility] RDW coefficient of variation 13.9(H) 11.4 - 13.8 % [facility] Mean Platelet Volume 9.2 7.6 - 12.9 fL [facility] NRBC% auto 0.0 % [facility] NRBC Absolute 0.000 0.000 - 0.000 x10(3)/mc L [facility] Blood 02/23/2021 3:17 AM EDT 02/23/2021 3:25 AM EDT Narrative Resulting Agency Comment Spec In Lab Pam Padilla APRN HEMATOLOGY ORDERAB LES [facility] [place] [address] * Phosphorus (02/23/2021 3:17 AM EDT) Phosphorus 3.4 2.5 - 4.5 mg/dL [facility] Blood 02/23/2021 3:17 AM EDT 02/23/2021 3:25 AM EDT Narrative Resulting Agency Comment Spec In Lab Pam Padilla [employer] OFFICER CHEMISTRY ORDERABL ES Performing Organization Address [facility] Co de Phone Number [facility] [place] [address] * Magnesium (02/23/2021 3:17 AM EDT) Magnesium 0.81 0.69 - 1.07 mmol/L [facility] Blood 02/23/2021 3:17 AM EDT 02/23/2021 3:25 AM EDT Narrative Resulting Agency Comment Spec In Lab Pam Padilla APRN CHEMISTRY ORDERABL ES Performing Organization Address [facility] Co de Phone Number [facility] [place] [address] * (ABNORMAL) Basic Metabolic Panel (non-fasting) (02/23/2021 3:17 AM EDT) Glucose 172 65 - 199 mg/dL [facility] Comment:Diabetes: >=200 mg/d L plus symptoms Blood Urea Nitrogen 8(L) 10 - 20 mg/dL [facility] Creatinine 0.62(L) 0.80 - 1.50 mg/dL [facility] Sodium 142 135 - 145 mmol/L [facility] Potassium 3.8 3.5 - 5.0 mmol/L [facility] Comment: Please note: ??Patients with WBC >100,000 may have falsely elevated Potassium levels. ??For accurate Potassium quantification in these patients send serum separator tube (gold top) for subsequent determinations. ??Contact the Clinical Chemistry Laboratory if there are any questions. Chloride 108(H) 98 - 107 mmol/L [facility] Carbon Dioxide 27 22 - 31 mmol/L [facility] Anion Gap 7 5 - 15 mmol/L [facility] Calcium 8.5 8.5 - 10.5 mg/dL [facility] Est Glomerular Filtration Rate 97 >=60 mL/min/1. 73 m?? [facility] Comment: This patient? s estimated [...] Lab Pam Padilla APRN CHEMISTRY ORDERABL ES [facility] [place] [address] * Differential, Automated (02/22/2021 4:25 AM EDT) Neutrophil % 76.2 % [facility] Neutrophil Absolute 5.14 1.70 - 6.10 x10(3)/[facility] Lymph % 13.1 % [facility] Lymphocytes Abs 0.9 0.9 - 3.2 x10(3)/[facility] Monocyte % 7.9 % [facility] Monocyte Abs 0.5 0.3 - 0.9 x10(3)/[facility] Eos % 1.9 % [facility] Eosinophils Abs 0.1 0.0 - 0.4 x10(3)/[facility] Basophil % 0.3 % [facility] Baso Absolute 0.0 0.0 - 0.1 x10(3)/[facility] Immature Gran % 0.60 % [facility] Comment: Immature granulocytes(IG's)percentage and absolute count will include metamyelocytes, myelocytes, and promyelocytes. Blood smears from CBCs yielding IG's will be scanned manually for concordance. If this scan disagrees with the automated IG or if promyelocytes are noted, a manual differential will be performed. Immature Gran Absolute 0.04 0.00 - 0.04 x10(3)/[facility] Blood 02/22/2021 4:25 AM EDT 02/22/2021 4:31 AM EDT Narrative Resulting Agency Comment Spec In Lab Rocio Smalls MD HEMATOLOGY ORDERABLE S Performing Organization Address City/State/[facility] Co de Phone Number [facility] [place] [address] * (ABNORMAL) Hemogram (02/22/2021 4:25 AM EDT) White Blood Cell 6.7 4.0 - 9.5 x10(3)/mc L [facility] Red Blood Cell 3.74(L) 4.58 - 5.54 x10(6)/mc L [facility] Hemoglobin 11.3(L) 13.7 - 16.5 gm/dL [facility] Hematocrit 34.6(L) 40.5 - 48.5 % [facility] Mean Cell Volume 92.5 82.9 - 93.1 fL [facility] Mean Cell Hemoglobin 30.2 27.5 - 32.1 pg [facility] Mean Cell Hemoglobin Concentration 32.7 32.0 - 35.7 gm/dL [facility] Platelet 119(L) 145 - 357 x10(3)/mc L [facility] RDW Standard Deviation 46.3(H) 36.0 - 45.0 [facility] RDW coefficient of variation 13.7 11.4 - 13.8 % [facility] Mean Platelet Volume 9.2 7.6 - 12.9 [facility] NRBC% auto 0.0 % [facility] NRBC Absolute 0.000 0.000 - 0.000 x10(3)/mc L [facility] Blood 02/22/2021 4:25 AM EDT 02/22/2021 4:31 AM EDT Narrative Resulting Agency Comment Spec In Lab Rocio Smalls MD HEMATOLOGY ORDERABLE S Performing Organization Address City/[facility]/ZIP Co de Phone Number [facility] [place] [address] * Phosphorus (02/22/2021 4:25 AM EDT) Phosphorus 3.4 2.5 - 4.5 mg/dL [facility] Blood 02/22/2021 4:25 AM EDT 02/22/2021 4:31 AM EDT Narrative Resulting Agency Comment Spec In Lab Pam Padilla BUSINESS PRACTICES OFFICER CHEMISTRY ORDERABL ES Performing Organization Address [facility]/ZIP Co de Phone Number [facility] [place] [address] * Magnesium (02/22/2021 4:25 AM EDT) Magnesium 0.74 0.69 - 1.07 mmol/L [facility] Blood 02/22/2021 4:25 AM EDT 02/22/2021 4:31 AM EDT Narrative Resulting Agency Comment Spec In Lab Pam Padilla BUSINESS PRACTICES OFFICER CHEMISTRY ORDERABL ES Performing Organization Address City/[facility]/ZIP Co de Phone Number [facility] [place] [address] * (ABNORMAL) Basic Metabolic Panel (non-fasting) (02/22/2021 4:25 AM EDT) Glucose 90 65 - 199 mg/dL [facility] Comment:Diabetes: >=200 mg/d L plus symptoms Blood Urea Nitrogen 6(L) 10 - 20 mg/dL [facility] Creatinine 0.51(L) 0.80 - 1.50 mg/dL [facility] Sodium 140 135 - 145 mmol/L [facility] Potassium 3.7 3.5 - 5.0 mmol/L [facility] Comment: Please note: ??Patients with WBC >100,000 may have falsely elevated Potassium levels. ??For accurate Potassium quantification in these patients send serum separator tube (gold top) for subsequent determinations. ??Contact the Clinical Chemistry Laboratory if there are any questions. Chloride 105 98 - 107 mmol/L [facility] Carbon Dioxide 28 22 - 31 mmol/L [facility] Anion Gap 7 5 - 15 mmol/L [facility] Calcium 8.8 8.5 - 10.5 mg/dL [facility] Est Glomerular Filtration Rate 105 >=60 mL/min/1. 73 m?? [facility] Comment: This patient? s estimated [...] Lab Pam Padilla APRN [place] [address] * CT Head wo Contrast (Generic) (02/22/2021 [...] who have questions please contact the health home visit field care manager that requested your imaging first. ? Electronically signed by: Corey Rivers MD, [facility] ([phone]), at 02/22/2021 4:34 AM Narrative 02/22/2021 4:34 [...] displacement of the left hemisphere and mild [id number] midline shift measuring 7 mm at the [...] displacement of the left hemisphere and mild uaym-ts-uatgd midline shift measuring 7 mm at the [...] patients who have questions please contactthe health home visit field care manager that requested your imaging first. Electronically signed by: Corey Rivers MD, [facility]([phone]), at 02/22/2021 4:34 AM Eduard Luu MD [...] mass effect with sulcal effacement. 5 mm irxp-fg-fdyrg midline shift is stable. Thank you for letting us participate in the care of this patient. ??If you are a health care provider and have any questions regarding this report, please contact the number below. ??For patients who have questions please contact the health home visit field care manager that requested your imaging first. ? Electronically signed by: Silvia Ling MD, [facility] ([phone]), at 02/21/2021 4:09 PM Narrative 02/21/2021 4:09 [...] increased masseffect with sulcal effacement. 5 mm wnhd-vb-ayozn midline shift is stable. Thank you for letting us participate in the care of this patient. If youare a health care provider and have any questions regarding this report,please contact the number below. For patients who have questions please contactthe health home visit field care manager that requested your imaging first. Nj Kimball BUSINESS PRACTICES OFFICER IMG CT ORDERABLES * POCT Glucose (02/21/2021 2:38 PM EDT) [facility] Glucose, POC 136 65 - 199 mg/dL [facility] Comment: Supplemental ranges: <140 mg/dL before meals <180 mg/dL all other times of the day Blood 02/21/2021 2:38 PM EDT 02/21/2021 2:38 PM EDT Eduard Luu MD POINT OF CARE TEST O RDERABLES Performing Organization Address City/State/[facility] Co de Phone Number [facility] [place] [address] * Differential, Automated (02/21/2021 1:15 AM EDT) [facility] Neutrophil % 72.3 % [facility] Neutrophil Absolute 5.26 1.70 - 6.10 x10(3)/[facility] LABORATORY Lymph % 15.1 % [facility] Lymphocytes Abs 1.1 0.9 - 3.2 x10(3)/[facility] LABORATORY Monocyte % 9.3 % [facility] Monocyte Abs 0.7 0.3 - 0.9 x10(3)/[facility] LABORATORY Eos % 2.5 % [facility] Eosinophils Abs 0.2 0.0 - 0.4 x10(3)/[facility] LABORATORY Basophil % 0.3 % [facility] Baso Absolute 0.0 0.0 - 0.1 x10(3)/[facility] LABORATORY Immature Gran % 0.50 % [facility] Comment: Immature granulocytes(IG's)percentage and absolute count will include metamyelocytes, myelocytes, and promyelocytes. Blood smears from CBCs yielding IG's will be scanned manually for concordance. If this scan disagrees with the automated IG or if promyelocytes are noted, a manual differential will be performed. Immature Gran Absolute 0.04 0.00 - 0.04 x10(3)/[facility] LABORATORY Blood 02/21/2021 1:15 AM EDT 02/21/2021 1:30 AM EDT Narrative Resulting Agency Comment Spec In Lab Charleen Colby MD HEMATOLOGY ORDERAB LES [facility] [place] [address] * (ABNORMAL) Hemogram (02/21/2021 1:15 AM EDT) White Blood Cell 7.3 4.0 - 9.5 x10(3)/[facility] LABORATORY Red Blood Cell 3.93(L) 4.58 - 5.54 x10(6)/mc L [facility] Hemoglobin 11.9(L) 13.7 - 16.5 gm/dL [facility] Hematocrit 36.7(L) 40.5 - 48.5 % [facility] Mean Cell Volume 93.4(H) 82.9 - 93.1 [facility] LABORATORY Mean Cell Hemoglobin 30.3 27.5 - 32.1 pg [facility] Mean Cell Hemoglobin Concentration 32.4 32.0 - 35.7 gm/dL [facility] Platelet 103(L) 145 - 357 x10(3)/[facility] LABORATORY RDW Standard Deviation 46.5(H) 36.0 - 45.0 [facility] LAB[facility]ATORY RDW coefficient of variation 13.6 11.4 - 13.8 % [facility] Mean Platelet Volume 9.2 7.6 - 12.9 fL [facility] NRBC% auto 0.0 % [facility] NRBC Absolute 0.000 0.000 - 0.000 x10(3)/mc L [facility] Blood 02/21/2021 1:15 AM EDT 02/21/2021 1:30 AM EDT Narrative Resulting Agency Comment Spec In Lab Charleen Colby MD HEMATOLOGY ORDERAB LES [facility] [place] [address] * (ABNORMAL) Basic Metabolic Panel (non-fasting) (02/21/2021 1:15 AM EDT) Glucose 100 65 - 199 mg/dL [facility] Comment:Diabetes: >=200 mg/d L plus symptoms Blood Urea Nitrogen 7(L) 10 - 20 mg/dL [facility] Creatinine 0.73(L) 0.80 - 1.50 mg/dL [facility] Sodium 141 135 - 145 mmol/L [facility] Potassium 3.6 3.5 - 5.0 mmol/L [facility] Comment: Please note: ??Patients with WBC >100,000 may have falsely elevated Potassium levels. ??For accurate Potassium quantification in these patients send serum separator tube (gold top) for subsequent determinations. ??Contact the Clinical Chemistry Laboratory if there are any questions. Chloride 106 98 - 107 mmol/L [facility] Carbon Dioxide 27 22 - 31 mmol/L [facility] Anion Gap 8 5 - 15 mmol/L [facility] Calcium 8.4(L) 8.5 - 10.5 mg/dL [facility] Est Glomerular Filtration Rate 91 >=60 mL/min/1. 73 m?? [facility] Comment: This patient? s estimated [...] In Lab Eduard Luu MD CHEMISTRY ORDERABLES [facility] [place] [address] * (ABNORMAL) Differential, Automated (02/20/2021 11:55 AM EDT) Neutrophil % 82.3 % [facility] Neutrophil Absolute 7.60(H) 1.70 - 6.10 x10(3)/mc L [facility] Lymph % 9.6 % [facility] Lymphocytes Abs 0.9 0.9 - 3.2 x10(3)/mc L [facility] Monocyte % 6.1 % [facility] Monocyte Abs 0.6 0.3 - 0.9 x10(3)/mc L [facility] Eos % 1.3 % [facility] Eosinophils Abs 0.1 0.0 - 0.4 x10(3)/mc L [facility] Basophil % 0.3 % [facility] Baso Absolute 0.0 0.0 - 0.1 x10(3)/mc L [facility] Immature Gran % 0.40 % [facility] Comment: Immature granulocytes(IG's)percentage and absolute count will include metamyelocytes, myelocytes, and promyelocytes. Blood smears from CBCs yielding IG's will be scanned manually for concordance. If this scan disagrees with the automated IG or if promyelocytes are noted, a manual differential will be performed. Immature Gran Absolute 0.04 0.00 - 0.04 x10(3)/mc L [facility] Blood 02/20/2021 11:5 5 AM EDT 02/20/2021 12:05 PM EDT Narrative Resulting Agency Comment Spec In Lab Nj Kimball BUSINESS PRACTICES OFFICER HEMATOLOGY ORDERABLE S [facility] [place] [address] * (ABNORMAL) Hemogram (02/20/2021 11:55 AM EDT) White Blood Cell 9.2 4.0 - 9.5 x10(3)/mc L [facility] Red Blood Cell 4.00(L) 4.58 - 5.54 x10(6)/mc L [facility] Hemoglobin 12.5(L) 13.7 - 16.5 gm/dL [facility] Hematocrit 37.0(L) 40.5 - 48.5 % [facility] Mean Cell Volume 92.5 82.9 - 93.1 [facility] Mean Cell Hemoglobin 31.3 27.5 - 32.1 pg [facility] Mean Cell Hemoglobin Concentration 33.8 32.0 - 35.7 gm/dL [facility] Platelet 132(L) 145 - 357 x10(3)/mc L [facility] RDW Standard Deviation 46.2(H) 36.0 - 45.0 [facility] LABORATORY RDW coefficient of variation 13.6 11.4 - 13.8 % [facility] Mean Platelet Volume 9.1 7.6 - 12.9 [facility] LABORATORY NRBC% auto 0.0 % [facility] NRBC Absolute 0.000 0.000 - 0.000 x10(3)/mc L [facility] Blood 02/20/2021 11:5 5 AM EDT 02/20/2021 12:05 PM EDT Narrative Resulting Agency Comment Spec In Lab Nj Kimball BUSINESS PRACTICES OFFICER HEMATOLOGY ORDERABLE S [facility] [place] [address] * (ABNORMAL) Basic Metabolic Panel (non-fasting) (02/20/2021 11:55 AM EDT) Glucose 116 65 - 199 mg/dL [facility] Comment:Diabetes: >=200 mg/d L plus symptoms Blood Urea Nitrogen 5(L) 10 - 20 mg/dL [facility] Creatinine 0.58(L) 0.80 - 1.50 mg/dL [facility] Sodium 141 135 - 145 mmol/L [facility] Potassium 3.7 3.5 - 5.0 mmol/L [facility] Comment: Please note: ??Patients with WBC >100,000 may have falsely elevated Potassium levels. ??For accurate Potassium quantification in these patients send serum separator tube (gold top) for subsequent determinations. ??Contact the Clinical Chemistry Laboratory if there are any questions. Chloride 106 98 - 107 mmol/L [facility] Carbon Dioxide 28 22 - 31 mmol/L [facility] Anion Gap 7 5 - 15 mmol/L [facility] Calcium 8.4(L) 8.5 - 10.5 mg/dL [facility] Est Glomerular Filtration Rate 100 >=60 mL/min/1. 73 m?? [facility] Comment: This patient? s estimated [...] Agency Comment Spec In Lab Nj Kimball BUSINESS PRACTICES OFFICER CHEMISTRY ORDERABLES Performing Organization Address City/[facility] Co de Phone Number [facility] [place] [address] * Phosphorus (02/20/2021 11:55 AM EDT) Phosphorus 2.9 2.5 - 4.5 mg/dL [facility] Blood 02/20/2021 11:5 5 AM EDT 02/20/2021 12:05 PM EDT Narrative Resulting Agency Comment Spec In Lab Nj Kimball BUSINESS PRACTICES OFFICER CHEMISTRY ORDERABLES Performing Organization Address [facility] Co de Phone Number [facility] [place] [address] * Magnesium (02/20/2021 11:55 AM EDT) Magnesium 0.74 0.69 - 1.07 mmol/L [facility] Blood 02/20/2021 11:5 5 AM EDT 02/20/2021 12:05 PM EDT Narrative Resulting Agency Comment Spec In Lab Nj Kimball BUSINESS PRACTICES OFFICER CHEMISTRY ORDERABLES Performing Organization Address [facility] Co de Phone Number [facility] [place] [address] * Duplex Study for DVT, Bilat legs (02/20/2021 11:46 AM EDT) VB Text Report Department: Vascular Surgery Lab Patient: [id number] (NARCISA EDUARDO) CPT: 40160 ICD10: R60.0 Referring Physician: NJ KIMBALL ?? [...] 02/20/2021 11:4 6 AM EDT Nj Kimball BUSINESS PRACTICES OFFICER VASCULAR ORDERABLES VASCUBASE * XR Fluoro Barium [...] who have questions please contact the health home visit field care manager that requested your imaging first. ? Electronically signed by: Arnel Story MD, [facility] ([phone]), at 02/20/2021 1:19 PM Narrative 02/20/2021 1:19 [...] patients who have questions please contactthe health home visit field care manager that requested your imaging first. Electronically signed by: Arnel Story MD, [facility]([phone]), at 02/20/2021 1:19 PM Feliciano Estrada MD IMG FLUORO ORDERABL ES * ECHO COMPLETE (02/19/2021 4:17 PM EDT) EF 64 HEARTLAB SYSTEM Anatomical Region Laterality Modality Other 02/19/2021 Narrative 02/19/2021 4:32 PM EDT Procedure: ?Transthoracic Echocardiogram Patient: ?JAYCE NARCISA ?(Age): 1945(75y) Med Rec#: ? [id number] ?Sex: ?M ? [place] Loc: ? [facility] [place] ?Ht / Wt: ??177(cm)/62(kg) Pt. Loc: ?Adult Floor ? BSA: ?1.77 Study Date: ?? 02/19/2021 ?Pt. Type: Inpatient Tape: ? Referring: DOMINIQUE Reading: Naty Granados ([id number]) Machine Made Shoe Unit Worker: Kylie Castanon [facility]LEJannette Diagnosis: *Syncope and collapse (R55) Rhythm: ? [...] Vmax ?0.71 ? m/sec ? MV deceleration oryd634.57 ? msec ? MV A-wave Vmax ?0.9 [...] ? Mid-Inferior ?Normal ? Mid-Inferoseptal ?Normal ? [place]-Septal ? Normal ? [place]-Anterior ? Normal ? [place]-Lateral ?Normal ? [place]-Inferior ? Normal ? [place]-Tip ?Normal ? This report has been electronically signed by: Naty Granados MD ? 02/19/2021 16:32:03 Images reviewed and interpretation verified [facility] Cardiac Ultrasound Laboratory Procedure Note Naty Granados MD - 02/19/2021 Procedure: Transthoracic Echocardiogram Patient: JAYCE SOARES(Age): 1945(75y) Med Rec#: [id number] Sex: M Site Loc: [facility] [place] Ht / Wt: 177(cm)/62(kg) Pt. Loc: Adult Floor BSA: 1.77 Study Date: 02/19/2021 Pt. Type: Inpatient Tape: Referring: DOMINIQUE Reading: Naty Granados ([id number]) Machine Made Shoe Unit Worker: Kylie Castanon RDCS, SUSAN Diagnosis: *Syncope and [...] MV E-wave Vmax 0.71 m/sec MV deceleration egjw392.57 msec MV A-wave Vmax 0.9 m/sec MV [...] Normal Mid-Posterolateral Normal Mid-Inferior Normal Mid-Inferoseptal Normal [place]-Septal Normal [place]-Anterior Normal [place]-Lateral Normal [place]-Inferior Normal [place]-Tip Normal This report has been electronically signed by: Naty Granados MD 02/19/2021 16:32:03 Images reviewed and interpretation verified [facility] Cardiac Ultrasound [facility] Nj Kimball BUSINESS PRACTICES OFFICER ECHO ORDERABLES * Carotid Duplex, Bilateral (02/19/2021 8:50 AM EDT) VB Text Report Department: Vascular Surgery Lab Patient: [id number] (NARCISA EDUARDO) CPT: 87360 ICD10: R55 Referring Physician: NJ KIMBALL ?? [...] 12:40 AM EDT) Neutrophil % 81.8 % [facility] Neutrophil Absolute 9.35(H) 1.70 - 6.10 x10(3)/mc L [facility] Lymph % 9.7 % [facility] Lymphocytes Abs 1.1 0.9 - 3.2 x10(3)/mc L [facility] Monocyte % 6.6 % [facility] Monocyte Abs 0.8 0.3 - 0.9 x10(3)/mc L [facility] Eos % 1.0 % [facility] Eosinophils Abs 0.1 0.0 - 0.4 x10(3)/ L [facility] Basophil % 0.3 % [facility] Baso Absolute 0.0 0.0 - 0.1 x10(3)/[facility] LABORATORY Immature Gran % 0.60 % [facility] Comment: Immature granulocytes(IG's)percentage and absolute count will include metamyelocytes, myelocytes, and promyelocytes. Blood smears from CBCs yielding IG's will be scanned manually for concordance. If this scan disagrees with the automated IG or if promyelocytes are noted, a manual differential will be performed. Immature Gran Absolute 0.07(H) 0.00 - 0.04 x10(3)/[facility] LABORATORY Blood 02/19/2021 12:4 0 AM EDT 02/19/2021 12:50 AM EDT Narrative Resulting Agency Comment Spec In Lab Tayler Lopes MD HEMATOLOGY ORDERABLE S Performing Organization Address City/State/[facility] Co de Phone Number [facility] [place] [phone] * (ABNORMAL) Hemogram (02/19/2021 12:40 AM EDT) White Blood Cell 11.4(H) 4.0 - 9.5 x10(3)/[facility] LABORATORY Red Blood Cell 3.95(L) 4.58 - 5.54 x10(6)/[facility] LABORATORY Hemoglobin 12.1(L) 13.7 - 16.5 gm/dL [facility] Hematocrit 36.7(L) 40.5 - 48.5 % [facility] Mean Cell Volume 92.9 82.9 - 93.1 fL [facility] Mean Cell Hemoglobin 30.6 27.5 - 32.1 pg [facility] Mean Cell Hemoglobin Concentration 33.0 32.0 - 35.7 gm/dL [facility] Platelet 111(L) 145 - 357 x10(3)/mc L [facility] RDW Standard Deviation 46.3(H) 36.0 - 45.0 fL [facility] RDW coefficient of variation 13.5 11.4 - 13.8 % [facility] Mean Platelet Volume 9.0 7.6 - 12.9 [facility] LABORATORY NRBC% auto 0.0 % [facility] NRBC Absolute 0.000 0.000 - 0.000 x10(3)/mc L [facility] Blood 02/19/2021 12:4 0 AM EDT 02/19/2021 12:50 AM EDT Narrative Resulting Agency Comment Spec In Lab Tayler Lopes MD HEMATOLOGY ORDERABLE S Performing Organization Address City/[facility]/ZIP Co de Phone Number [facility] [place] [address] * Magnesium (02/19/2021 12:40 AM EDT) Magnesium 0.73 0.69 - 1.07 mmol/L [facility] Blood 02/19/2021 12:4 0 AM EDT 02/19/2021 12:50 AM EDT Narrative Resulting Agency Comment Spec In Lab Feliciano Estrada MD CHEMISTRY ORDERABLE S Performing Organization Address City/[facility]/ZIP Co de Phone Number [facility] [place] [address] * (ABNORMAL) Basic Metabolic Panel (non-fasting) (02/19/2021 12:40 AM EDT) Glucose 90 65 - 199 mg/dL [facility] Comment:Diabetes: >=200 mg/d L plus symptoms Blood Urea Nitrogen 4(L) 10 - 20 mg/dL [facility] Creatinine 0.67(L) 0.80 - 1.50 mg/dL [facility] Sodium 140 135 - 145 mmol/L [facility] Potassium 3.3(L) 3.5 - 5.0 mmol/L [facility] Comment: Please note: ??Patients with WBC >100,000 may have falsely elevated Potassium levels. ??For accurate Potassium quantification in these patients send serum separator tube (gold top) for subsequent determinations. ??Contact the Clinical Chemistry Laboratory if there are any questions. Chloride 103 98 - 107 mmol/L [facility] Carbon Dioxide 30 22 - 31 mmol/L [facility] Anion Gap 7 5 - 15 mmol/L [facility] Calcium 8.7 8.5 - 10.5 mg/dL [facility] Est Glomerular Filtration Rate 94 >=60 mL/min/1. 73 m?? [facility] Comment: This patient? s estimated [...] Lab Feliciano Estrada MD CHEMISTRY ORDERABLE S [facility] [place] [address] * (ABNORMAL) CT Chest Abdomen Pelvis wo [...] who have questions please contact the health home visit field care manager that requested your imaging first. ? Electronically signed by: Damian Duggan MD, [facility] ([phone]), at 02/18/2021 11:49 PM Narrative 02/18/2021 11:49 [...] of 12/03/2020 Resulting Agency Comment Unexpected Finding Feliicano Estrada MD IMG CT ORDERABLES * CT [...] who have questions please contact the health home visit field care manager that requested your imaging first. ? Electronically signed by: Naty Chaidez [facility] ([phone]), at 02/18/2021 9:06 PM Narrative 02/18/2021 9:06 PM EDT EXAMINATION: CT [...] patients who have questions please contactthe health home visit field care manager that requested your imaging first. [...] who have questions please contact the health home visit field care manager that requested your imaging first. ? Electronically signed by: Damian Duggan MD, [facility] ([phone]), at 02/18/2021 11:49 PM Narrative 02/18/2021 11:49 [...] who have questions please contact the health home visit field care manager that requested your imaging first. ? Electronically signed by: Damian Duggan MD, [facility] ([phone]), at 02/18/2021 11:49 PM Narrative 02/18/2021 11:49 [...] who have questions please contact the health home visit field care manager that requested your imaging first. ? Electronically signed by: Naty Chaidez [facility] ([phone]), at 02/18/2021 9:06 PM Narrative 02/18/2021 9:06 PM EDT EXAMINATION: CT [...] patients who have questions please contactthe health home visit field care manager that requested your imaging first. Alex Carrillo MD IMG CT ORDERABLES * Valproic Acid Level, Total (02/18/2021 8:14 PM EDT) Valproic Acid <3 mg/L [facility] Comment: Therapeutic Range: Anticonvulsant Therapy: ??50-100 mg/L Manic Episodes Associated with Bipolar Disorder: ??50-125 mg/L Blood Venous Draw / Unknown 02/18/2021 8:14 PM EDT 02/19/2021 7:23 AM EDT Narrative Resulting Agency Comment Spec In Lab Tayler Lopes MD CHEMISTRY ORDERABLES [facility] [place] [address] * (ABNORMAL) Rapid Drug Screen w/o Confirmation, Urine (02/18/2021 8:14 PM EDT) Barbiturates Screen, Urine None Detected None Detected [facility] Comment: The barbiturate screen detects [...] Benzodiazepines Screen, Urine None Detected None Detected [facility] Comment: The benzodiazepines screen detects [...] Cocaine Screen, Urine None Detected None Detected [facility] Comment: The cocaine metabolites screen detects benzoylecgonine (Cocaine Metabolite) at concentrations >150 ng/mL. A ? Presumptive Positive? result indicates that the screening result was positive but has not yet been confirmed by a highly-specific method. As with any screen, occasional false positive results from cross-reacting substances may occur. Not for Medico-Legal Purposes. Methadone Metabolites Screen, Urine None Detected None Detected [facility] Comment: The methadone metabolite screen detects EDDP (major methadone metabolite) at concentrations >100 ng/mL. A ? Presumptive Positive? result indicates that the screening result was positive but has not yet been confirmed by a highly-specific method. As with any screen, occasional false positive results from cross-reacting substances may occur. Not for Medico-Legal Purposes. Opiate Screen, Urine Presumptive Pos(A) None Detected [facility] Comment: The opiates screen detects [...] Cannabinoid Screen, Urine None Detected None Detected [facility] Comment: The marijuana metabolites screen detects the THC metabolite (30-txs-1-carboxy-delta 9-THC) at concentrations >20 ng/mL. A ? Presumptive Positive? result indicates that the screening result was positive but has not yet been confirmed by a highly-specific method. As with any screen, occasional false positive results from cross-reacting substances may occur. Not for Medico-Legal Purposes. Oxycodone Screen, Urine None Detected None Detected [facility] Comment: The oxycodone screen detects oxycodone and oxymorphone at concentrations >100 ng/mL. A ? Presumptive Positive? result indicates that the screening result was positive but has not yet been confirmed by a highly-specific method. As with any screen, occasional false positive results from cross-reacting substances may occur. Not for Medico-Legal Purposes. Buprenorphine Screen, Urine None Detected None Detected [facility] Comment: The buprenorphine screen detects buprenorphine at concentrations >5 ng/mL. A ? Presumptive Positive? result indicates that the screening result was positive but has not yet been confirmed by a highly-specific method. As with any screen, occasional false positive results from cross-reacting substances may occur. Not for Medico-Legal Purposes. Fentanyl Screen, Urine None Detected None Detected [facility] Comment: The fentanyl screen detects fentanyl at concentrations >2 ng/mL. A ? Presumptive Positive? result indicates that the screening result was positive but has not yet been confirmed by a highly-specific method. As with any screen, occasional false positive results from cross-reacting substances may occur. Not for Medico-Legal Purposes. Tricyclics Screen, Urine None Detected None Detected [facility] Comment: The tricyclics screen detects [...] Ethanol Screen, Urine None Detected None Detected [facility] Comment:This urine ethanol a ssay detects ethanol at concentrations >/= 100 mg/L. Amphetamines Screen, Urine None Detected None Detected [facility] Comment: The amphetamine screen detects d-amphetamine and d-methamphetamine at concentrations >300 ng/mL. A ? Presumptive Positive? result indicates that the screening result was positive but has not yet been confirmed by a highly-specific method. As with any screen, occasional false positive results from cross-reacting substances may occur. Not for Medico-Legal Purposes. Adulterants Screen, Urine None Detected None Detected [facility] Comment: No adulteration or dilution [...] CHEMISTRY ORDERABLE S Performing Organization Address [facility]/ZIP Co de Phone Number [facility] [place] [address] * Rapid Drug Screen, Urine (CHRIS Request) (02/18/2021 8:14 PM EDT) CHRIS Conf Requested No [facility] CHRIS Requested See Comment [facility] Comment:Refer to Rapid Drug Screen w/o Confirmation, Urine for results. Urine 02/18/2021 8:14 PM EDT 02/18/2021 8:27 PM EDT Narrative Resulting Agency Comment Spec In Lab Alex Carrillo MD URINE ORDERABLES Performing Organization Address [facility] Co de Phone Number [facility] [place] [address] * Lacosamide Level (02/18/2021 8:13 PM EDT) Lacosamide Level (DECEMBER) 8.7 1.0 - 10.0 mcg/mL [facility] Comment: ADDITIONAL INFORMATION This test was developed and its performance characteristics determined by [facility] in a manner consistent with CLIA requirements. This test has not been cleared or approved by the U.S. Food and Drug Administration. Test Performed by: [facility] - [address] [address] Affiliate Marketing Specialist: Russel Clemons M.D. Ph.D.; CLIA# [id number] Blood Venous Draw / Unknown 02/18/2021 8:13 PM EDT 02/19/2021 9:42 AM EDT Narrative Resulting Agency Comment Spec In Lab Tayler Lopes MD LAB SEND OUT ORDERAB LES Performing Organization Address [facility] Co de Phone Number [facility] [place] [address] * Valproic Acid Level, Total (02/18/2021 8:13 PM EDT) [facility] Valproic Acid Not Perf mg/L [facility] Comment: cancelled by floor Called by: domenic, Read back by: Michael Mansfield, Date/Time:02/19/21 05:35. Therapeutic Range: Anticonvulsant Therapy: ??50-100 mg/L Manic Episodes Associated with Bipolar Disorder: ??50-125 mg/L Blood Venous Draw / Unknown 02/18/2021 8:13 PM EDT 02/18/2021 8:52 PM EDT Narrative Resulting Agency Comment Spec In Lab Tayler Lopes MD CHEMISTRY ORDERABLES Performing Organization Address [facility] de Phone Number [facility] [place] [address] * Type and Screen Validity (02/18/2021 8:13 PM EDT) [facility] T&S only valid at [facility] Comment:This Type and Screen result is only valid at the [facility] Blood 02/18/2021 8:13 PM EDT 02/18/2021 8:19 PM EDT Narrative Resulting Agency Comment Spec In Lab Feliciano Estrada MD BLOOD BANK LAB ORDE CHRISTEN Performing Organization Address [facility] Co de Phone Number [facility] [place] [address] * (ABNORMAL) Urine culture (02/18/2021 8:13 PM EDT) [facility] Urine Culture Greater than 100,000 cfu/ml Klebsiella species : two morphologies(A ) [facility] Organism Klebsiella species(A) [facility] Organism Klebsiella species(A) [facility] Clean Catch Urine 02/18/2021 8:13 [...] - GENE RAL ORDERABLES Performing Organization Address City/[facility]/ZIP Co de Phone Number [facility] [place] [address] * (ABNORMAL) Urinalysis Microscopic Exam (02/18/2021 8:13 PM EDT) RBC, Urine 41(H) 0 - 3 /HPF [facility] WBC, Urine 46(H) 0 - 3 /HPF [facility] Bacteria, Urine Many(A) None /HPF [facility] Squamous Epithelial Cells Raw Data, Urine 1 <=4 /HPF [facility] Hyaline Casts, Urine 34(H) 0 - 2 /LPF [facility] Clean Catch Urine 02/18/2021 8:13 PM EDT 02/18/2021 8:27 PM EDT Narrative Resulting Agency Comment Spec In Lab Feliciano Estrada MD URINE ORDERABLES Performing Organization Address City/[facility]/ZIP Co de Phone Number [facility] [place] [address] * ABORH Recheck Status (02/18/2021 8:13 PM EDT) ABOR[facility] Recheck Order Order Placed [facility] ABORH Type Recheck Complete [facility] Blood 02/18/2021 8:13 PM EDT 02/18/2021 8:19 PM EDT Narrative Resulting Agency Comment Spec In Lab Feliciano Estrada MD BLOOD BANK LAB ORDE RABLES Performing Organization Address City/[facility]/ZIP Co de Phone Number [facility] [place] [address] * Gold Tube HOLD (02/18/2021 8:13 PM EDT) Gold Hold Sample in lab. [facility] Blood Venous Draw / Unknown 02/18/2021 8:13 PM EDT 02/18/2021 8:26 PM EDT Feliciano Estrada MD CHEMISTRY ORDERABLE S [facility] [place] [address] * (ABNORMAL) Differential, Automated (02/18/2021 8:13 PM EDT) Neutrophil % 81.8 % [facility] Neutrophil Absolute 8.43(H) 1.70 - 6.10 x10(3)/[facility] Lymph % 9.8 % [facility] Lymphocytes Abs 1.0 0.9 - 3.2 x10(3)/[facility] Monocyte % 6.3 % [facility] Monocyte Abs 0.6 0.3 - 0.9 x10(3)/[facility] Eos % 1.1 % [facility] Eosinophils Abs 0.1 0.0 - 0.4 x10(3)/[facility] Basophil % 0.4 % [facility] Baso Absolute 0.0 0.0 - 0.1 x10(3)/[facility] Immature Gran % 0.60 % [facility] Comment: Immature granulocytes(IG's)percentage and absolute count will include metamyelocytes, myelocytes, and promyelocytes. Blood smears from CBCs yielding IG's will be scanned manually for concordance. If this scan disagrees with the automated IG or if promyelocytes are noted, a manual differential will be performed. Immature Gran Absolute 0.06(H) 0.00 - 0.04 x10(3)/ L [facility] Blood 02/18/2021 8:13 PM EDT 02/18/2021 8:26 PM EDT Narrative Resulting Agency Comment Spec In Lab Feliciano Estrada MD HEMATOLOGY ORDERABL ES Performing Organization Address City/[facility]/ZIP Co de Phone Number [facility] [place] [address] * (ABNORMAL) Hemogram (02/18/2021 8:13 PM EDT) White Blood Cell 10.3(H) 4.0 - 9.5 x10(3)/mc L [facility] Red Blood Cell 3.77(L) 4.58 - 5.54 x10(6)/mc L [facility] Hemoglobin 11.7(L) 13.7 - 16.5 gm/dL [facility] Hematocrit 34.8(L) 40.5 - 48.5 % [facility] Mean Cell Volume 92.3 82.9 - 93.1 fL [facility] Mean Cell Hemoglobin 31.0 27.5 - 32.1 pg [facility] Mean Cell Hemoglobin Concentration 33.6 32.0 - 35.7 gm/dL [facility] Platelet 111(L) 145 - 357 x10(3)/mc L [facility] RDW Standard Deviation 46.0(H) 36.0 - 45.0 fL [facility] RDW coefficient of variation 13.5 11.4 - 13.8 % [facility] Mean Platelet Volume 9.1 7.6 - 12.9 fL [facility] NRBC% auto 0.0 % [facility] NRBC Absolute 0.000 0.000 - 0.000 x10(3)/mc L [facility] Blood 02/18/2021 8:13 PM EDT 02/18/2021 8:26 PM EDT Narrative Resulting Agency Comment Spec In Lab Feliciano Estrada MD HEMATOLOGY ORDERABL ES [facility] [place] [address] * Antibody screen (02/18/2021 8:13 PM EDT) Ab Screen Interp Negative [facility] Expires at [id number] on: 02/21/2021 [facility] Blood 02/18/2021 8:13 PM EDT 02/18/2021 8:19 PM EDT Narrative Resulting Agency Comment Spec In Lab Feliciano Estrada MD BLOOD BANK LAB ORDJannette VELÁSQUEZ [facility] [place] [address] * ABO/Rh Typing (02/18/2021 8:13 PM EDT) Pathologist [facility] ABORH Type A Pos [facility] Blood 02/18/2021 8:13 PM EDT 02/18/2021 8:19 PM EDT Narrative Resulting Agency Comment Spec In Lab Feliciano Estrada MD BLOOD BANK LAB ORDJannette VELÁSQUEZ Performing Organization Address City/[facility]/ZIP Co de Phone Number [facility] [place] [address] * (ABNORMAL) Urinalysis with reflex Culture (02/18/2021 8:13 PM EDT) [facility] Glucose, Urine Dipstick Negative Negative mg/dL [facility] Protein, Urine Dipstick Trace(A) Negative mg/dL [facility] Bilirubin, Urine Dipstick Negative Negative mg/dL [facility] Comment: Clinical correlation required for positive Urine Bilirubin results as false positive may occur with some drugs and drug related products. If a false positive is suspected a serum total bilirubin should be considered if clinically indicated. Urobilinogen, Urine Dipstick Normal Normal mg/dL [facility] pH, Urn (dipstick) 8.0 5.0 - 8.0 [facility] Blood, Urine Dipstick Moderate(A) Negative mg/dL [facility] Ketone, Urine Dipstick Negative Negative mg/dL [facility] Nitrite, Urine Dipstick Positive(A) Negative [facility] Leukocytes, Urine Dipstick Moderate(A) Negative [facility] Appearance, Urine Dipstick Cloudy(A) Clear [facility] Specific [place] Urine Automated 1.011 1.005 - 1.030 [facility] Color, Urine Dipstick Yellow Yellow [facility] Reflex to Culture Yes [facility] Clean Catch Urine 02/18/2021 8:13 PM EDT 02/18/2021 8:27 PM EDT Narrative Resulting Agency Comment Spec In Lab Alex Carrillo MD URINE ORDERABLES Performing Organization Address [facility] Co de Phone Number [facility] [place] [address] * Ethanol Level (02/18/2021 8:13 PM EDT) Ethanol <100 <=99 mg/L [facility] Comment: Greater than 800 mg/L (0.08%) should be considered intoxicated. 3400 to 4500 mg/L (0.34 - 0.45%) is considered severe intoxication. Greater than 5500 mg/L (0.55%) is usually fatal. Blood 02/18/2021 8:13 PM EDT 02/18/2021 8:26 PM EDT Narrative Resulting Agency Comment Spec In Lab Alex Carrillo MD CHEMISTRY ORDERABLE S Performing Organization Address [facility]/ZIP Co de Phone Number [facility] [place] [address] * APTT (02/18/2021 8:13 PM EDT) Partial Thromboplastin Time 27 25 - 37 sec [facility] Comment: The PTT is NOT appropriate for heparin monitoring. Use the Anti-Xa level for heparin monitoring (HEP UFH) or LMWH monitoring (HEP LMW). A PTT less than 37 seconds generally indicates adequate hemostasis. Blood 02/18/2021 8:13 PM EDT 02/18/2021 8:26 PM EDT Narrative Resulting Agency Comment Spec In Lab Alex Carrillo MD HEMATOLOGY ORDERABL ES Performing Organization Address [facility] de Phone Number [facility] [place] [address] * Prothrombin Time (02/18/2021 8:13 PM EDT) Prothrombin Time 11.6 9.4 - 12.5 sec [facility] International Normalization Ratio 1.0 [facility] Comment: An INR <2.0 indicates [...] HEMATOLOGY ORDERABL ES Performing Organization Address [facility] de Phone Number [facility] [place] [address] * (ABNORMAL) Basic Metabolic Panel (non-fasting) (02/18/2021 8:13 PM EDT) Glucose 84 65 - 199 mg/dL [facility] Comment:Diabetes: >=200 mg/d L plus symptoms Blood Urea Nitrogen 5(L) 10 - 20 mg/dL [facility] Creatinine 0.65(L) 0.80 - 1.50 mg/dL [facility] Sodium 142 135 - 145 mmol/L [facility] Potassium 3.3(L) 3.5 - 5.0 mmol/L [facility] Comment: Please note: ??Patients with WBC >100,000 may have falsely elevated Potassium levels. ??For accurate Potassium quantification in these patients send serum separator tube (gold top) for subsequent determinations. ??Contact the Clinical Chemistry Laboratory if there are any questions. Chloride 106 98 - 107 mmol/L [facility] Carbon Dioxide 31 22 - 31 mmol/L [facility] Anion Gap 5 5 - 15 mmol/L [facility] Calcium 8.7 8.5 - 10.5 mg/dL [facility] Est Glomerular Filtration Rate 95 >=60 mL/min/1. 73 m?? [facility] Comment: This patient? s estimated [...] Lab Alex Carrillo MD CHEMISTRY ORDERABLE S [facility] [place] [address] * (ABNORMAL) BLOOD GAS 2 VENOUS (02/18/2021 8:09 PM EDT) pH, Venous 7.45(H) 7.32 - 7.42 [facility] PCO2, Venous 46 41 - 51 mmHg [facility] PO2, Venous 38 25 - 40 mmHg [facility] Bicarbonate, Venous 30.9 mmol/L [facility] Base Excess, Venous 6.8 mmol/L [facility] Hgb Blood Gas 12.3(L) 13.7 - 16.5 gm/dL [facility] Oxyhemoglobin, Venous 70.9 % [facility] Carboxyhemoglob in, Venous 2.2 % [facility] Comment: Nonsmokers: 0.5-1.5% COHB Smokers: Variable, but usually less than 10% Toxic: 20-30% COHB Lethal: Greater than 60% COHB Methemoglobin, Venous 0.7 <=1.5 % [facility] Na Whole Blood 136 135 - 145 mmol/L [facility] K Whole Blood 3.2(L) 3.5 - 5.0 mmol/L [facility] Comment: Please note: Patients with WBC >100,000 may have falsely elevated Potassium levels. Contact the Clinical Chemistry Laboratory if there are any questions. ICa Whole Blood 1.17 1.15 - 1.33 mmol/L [facility] Comment: Note: ??Total bilirubin higher than 20 mg/dL may lead to falsely low ionized calcium. CL Whole Blood 103 98 - 107 mmol/L [facility] Gluc Whole Bld 84 65 - 199 mg/dL [facility] Comment:Diabetes: >=200 mg/d L plus symptoms Lactate WB 1.0 0.5 - 2.2 mmol/L [facility] Blood Gas Source Venous [facility] Blood 02/18/2021 8:09 PM EDT 02/18/2021 8:[address] Peggy Hein MD POINT OF CARE TEST O RDERABLES [facility] [place] [address] * XR Chest AP and Pelvis AP [...] who have questions please contact the health home visit field care manager that requested your imaging first. ? Electronically signed by: Corey Rivers MD, [facility] ([phone]), at 02/18/2021 8:40 PM Narrative 02/18/2021 8:40 [...] patients who have questions please contactthe health home visit field care manager that requested your imaging first. Electronically signed by: Corey Rivers MD, [facility]([phone]), at 02/18/2021 8:40 PM Alex Carrillo MD IMG DX ORDERABLES * Film Library- Storage Only DX Upper Extremity (02/18/2021 4:57 PM EDT) Narrative [facility] - 02/18/2021 4:57 PM EDT This exam is auto-finalizing. It's purpose is for storage only. Eduard Luu MD [facility] [place]RARY ORD ERABLES Performing Organization Address [facility] de Phone Number [place], [place] * Film Library- Storage Only DX Chest (02/18/2021 4:56 PM EDT) Narrative [facility] - 02/18/2021 4:56 PM EDT This exam is auto-finalizing. It's purpose is for storage only. Eduard Luu MD [facility]ARY ORD ERABLES Performing Organization Address [facility] de Phone Number [place], [place] * Film Library- Storage Only CT Head And Spine (02/18/2021 4:55 PM EDT) Narrative [facility] - 02/18/2021 4:55 PM EDT This exam is auto-finalizing. It's purpose is for storage only. Eduard Luu MD [facility] [place]M LIBRARY ORD ERABLES Performing Organization Address [facility] de Phone Number [place], [place] documented in this encounter Visit Diagnoses [...] Reason: Patient/family refused)[id number] (Not Given - Provider: Vlda Whatley RN - Reason: Patient/family refused) 0000 [...] Donal Vargas RN) 2002 (Given - Provider: Vlda Whatley RN) lacosamide (Vimpat) tablet Tab 200 [...] Routine documented in this encounter Care Teams Hub Borer Relationship Specialty Start Date End Date Alfredo Montoya DO [address] [place] [id number] PCP - General Internal Medicine 12/04/19 04/27/23 documented as of this encounter
--- OUTSIDE RECORDS SUMMARY | 2024-07-08 01:33 | XMS_ITS | Encounter Summary ---
Author Organization [place] [address] Care Team Providers Care Bar Pointer Name Role Phone Alfredo Montoya DO Primary Care Provider [phone] Encounter Details Date Type Department Care Team (Late st Contact Info) Description 10/02/2020 Telephone Radiation Oncology at [address] [phone] Noelle Ramirez RN Social History [...] AM EST Radiation Oncology Nurse Telephone Note [facility] [place], [place] 09:18 Pt's called stating that he has developed hematuria. She states that [facility] agency is aware of [...] EDT Office Visit Radiation Oncology at [address] [phone] Taya De La Vega PA [facility] DR HEMATOLOGY [place] [address] 11/13/2024 2:00 PM EDT Office Visit Hematology/Oncology at [address] [phone] Kirt Kennedy MD [facility] DR HEMATOLOGY [place] [address] Alem Lazaro APRN [address] [place] [address] [place] [address] documented as of this encounter Visit Diagnoses Not on filedocumented in this encounter Care Teams Bar Pointer Relationship Specialty Start Date End Date Alfredo Montoya DO [address] [place] [id number] PCP - General Internal Medicine 12/04/19 04/27/23 documented as of this encounter
--- OUTSIDE RECORDS SUMMARY | 2024-07-08 01:33 | XMS_ITS | Encounter Summary ---
Author Organization [facility] Address [facility] [place] [address] Care Team Providers Care Coil Connector Name Role Phone Alfredo Montoya DO Primary Care Provider [phone] Reason for Visit * - Closed Specialty Diagnoses / Procedures Referred By Rogers t Referred To Contact Procedures Film Library- Storage Only CT Abdomen & Pelvis Alfredo Montoya, DO [address] [place] [address] Referral ID Status Reason Start Date Expiration Date Visits Re quested Visits Authorized [id number] Closed 12/08/2020 12/08/2021 1 1 Encounter Details Date Type Department Care Team (Late Contact Info) Description 12/03/2020 Ancillary Procedure Radiology Library at [facility] [place] [phone] Alfredo Montoya, DO [address] [place] [address] Social History Tobacco Use Types Packs/Day Years [...] EDT Office Visit Radiation Oncology at [address] [phone] Taya De La Vega PA [facility] DR HEMATOLOGY [place] [address] 11/13/2024 2:00 PM EDT Office Visit Hematology/Oncology at [address] [phone] Kirt Kennedy MD [facility] DR HEMATOLOGY [place] [address] Alem Lazaro APRN [address] [place] [address] DR HEMATOLOGY AND ONCOLOGY [place], [place] [id number] documented as of this encounter Procedures Procedure Name Priority Date/Time Associated Diagnosis Comments FILM LIBRARY STORAGE ONLY CT ABDOMEN AND PELVIS Routine 12/03/2020 12:00 AM EDT documented in this encounter Results * Film Library- Storage Only CT Abdomen & Pelvis (12/03/2020 12:00 AM EDT) Narrative [facility] - 12/08/2020 12:24 PM EDT This exam is auto-finalizing. It's purpose is for storage only. Alfredo Montoya DO [facility] FILM LIBRARY OR DERABLES Performing Organization Address City/State/[facility] Co de Phone Number [place], [place] documented in this encounter Visit Diagnoses Not on filedocumented in this encounter Care Teams Coil Connector Relationship Specialty Start Date End Date Alfredo Montoya DO [address] [place] [id number] PCP - General Internal Medicine 12/04/19 04/27/23 documented as of this encounter
--- OUTSIDE RECORDS SUMMARY | 2024-07-08 01:33 | XMS_ITS | Encounter Summary ---
Author Organization [facility] [place] [address] Care Team Providers Care Structural Technician Name Role Phone Alfredo Montoya DO Primary Care Provider +1 [phone] Encounter Details Date Type Department Care Team (Latest Contact Info) Description 04/22/2020 10:00 AM EDT Clinical Support Hematology/Oncology at [address] [phone] Malignant neoplasm [...] Johnson RD - 04/22/2020 10:00 AM EDT [facility] [...] Am: first meal around 10 or 11, greek muffin with egg on one side and [...] EDT Office Visit Radiation Oncology at [address] [phone] Taya De La Vega PA [facility] DR HEMATOLOGY [place] [address] 11/13/2024 2:00 PM EDT Office Visit Hematology/Oncology at [address] [phone] Kirt Kennedy MD [facility] DR HEMATOLOGY [place] [address] Alem Lazaro APRN [address] [place] [address] DR HEMATOLOGY AND ONCOLOGY [place], [place] [address] documented as of this encounter Visit Diagnoses Diagnosis Malignant neoplasm of prostate documented in this encounter Care Teams Structural Technician Relationship Specialty Start Date End Date Alfredo Montoya DO [address] [address] PCP - General Internal Medicine 12/04/19 04/27/23 documented as of this encounter
--- OUTSIDE RECORDS SUMMARY | 2024-07-08 01:33 | XMS_ITS | Encounter Summary ---
Author Organization [facility] [place] [address] Care Team Providers Care Sanitarian Name Role Phone Alfredo Montoya DO Primary Care Provider +1 [phone] Encounter Details Date Type Department Care Team (Late st Contact Info) Description 04/11/2020 10:15 AM EDT Office Visit Radiation Oncology at [address] [phone] Que Evans MD [address] [place] [address] [place] [address] Malignant neoplasm of prostate Social [...] 04/11/20 Que Evans MD, MS Radiation Oncology [facility] [phone] (paging barrel rifler operator) Pager #[phone] PATIENT IDENTIFICATION Name Narcisa Eduardo Date of 1945 PCP Alfredo Montoya DO Referring MD (if different) Dr. 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, [...] EDT Office Visit Radiation Oncology at [address] [phone] Taya De La Vega PA [facility] HEMATOLOGY [place] [address] 11/13/2024 2:00 PM EDT Office Visit Hematology/Oncology at [address] [phone] Kirt Kennedy MD [facility] DR [place] [address] Alem Lazaro APR[address] HEMATOLOGY [place] [address] documented as of this encounter Visit Diagnoses Diagnosis Malignant neoplasm of prostate documented in this encounter Care Teams Sanitarian Relationship Specialty Start Date End Date Alfredo Montoya DO [address] [place] [address] PCP - General Internal Medicine 12/04/19 04/27/23 documented as of this encounter
--- OUTSIDE RECORDS SUMMARY | 2024-07-08 01:33 | XMS_ITS | Encounter Summary ---
Author Organization [facility]ly [facility] Address [facility] [place] [address] Care Team Providers Care Rodeo Rider Name Role Phone Alfredo Montoya DO Primary Care Provider [phone] Encounter Details Date Type Department Care Team (Late st Contact Info) Description 08/26/2020 12:05 AM EST Ancillary Procedure Radiology Library at [facility] [address] Alfredo Montoya, DO [address] [place] [address] Social History Tobacco Use Types Packs/Day Years [...] EDT Office Visit Radiation Oncology at [address] [phone] [address] De La Vega PA [facility] HEMATOLOGY [place] [address] 11/13/2024 2:00 PM EDT Office Visit Hematology/Oncology at [address] [phone] [facility] DR [place] [address] Alem Lazaro, SHIP'S MASTER [address] [place] [address] HEMATOLOGY AND ONCOLOGY [place], [place] [address] documented as of this encounter Procedures Procedure Name Priority Date/Time Associated Diagnosis Comments FILM LIBRARY STORAGE ONLY DX CHEST Routine 08/26/2020 12:05 AM EST documented in this encounter Results * Film Library- Storage Only DX Chest (08/26/2020 12:05 AM EST) Narrative [facility] - 10/05/2020 4:50 AM EST This exam is auto-finalizing. It's purpose is for storage only. Alfredo Montoya DO [facility] FILM LIBRARY OR DERABLES Performing Organization Address City/State/[facility] Co de Phone Number [place], [place] documented in this encounter Visit Diagnoses Not on filedocumented in this encounter Care Teams Rodeo Rider Relationship Specialty Start Date End Date Alfredo Montoya DO [address] [place] [address] PCP - General Internal Medicine 12/04/19 04/27/23 documented as of this encounter
--- OUTSIDE RECORDS SUMMARY | 2024-07-08 01:33 | XMS_ITS | Encounter Summary ---
Author Organization [facility] Address [facility] [place] [address] Care Team Providers Care Warp Bleaching Vat Tender Name Role Phone Alfredo Montoya DO Primary Care Provider Encounter Details Date Type Department Care Team (Late Contact Info) Description 08/26/2020 6:00 PM EST Ancillary Procedure Radiology Library at [facility] [place] [id number] Que Evans MD [address] [place] [address] DR RADIATION ONCOLOGY [place], [place] [id number] Social History Tobacco Use Types Packs/Day Years [...] EDT Office Visit Radiation Oncology at [address] [phone] Taya De La Vega PA [facility] DR HEMATOLOGY [place] [address] 11/13/2024 2:00 PM EDT Office Visit Hematology/Oncology at [address] [phone] Kirt Kennedy MD [facility] DR HEMATOLOGY [place] [address] Alem Lazaro, [address] HEMATOLOGY AND ONCOLOGY [place], [place] [address] documented as of this encounter Procedures Procedure Name Priority Date/Time Associated Diagnosis Comments FILM LIBRARY STORAGE ONLY MR HEAD Routine 08/26/2020 5:57 PM EST documented in this encounter Results * Film Library- Storage Only MR Head (08/26/2020 5:57 PM EST) Narrative [facility] - 08/26/2020 5:57 PM EST This exam is auto-finalizing. It's purpose is for storage only. Que Evans MD IMG FILM LIBRARY ORD ERABLES [place], [place] documented in this encounter Visit Diagnoses Not on filedocumented in this encounter Care Teams Warp Bleaching Vat Tender Relationship Specialty Start Date End Date Alfredo Montoya DO [address] [place] [address] PCP - General Internal Medicine 12/04/19 04/27/23 documented as of this encounter
--- OUTSIDE RECORDS SUMMARY | 2024-07-08 01:33 | XMS_ITS | Encounter Summary ---
Author Organization [facility] Address [facility] [place] [address] Care Team Providers Care Grain Shipper Name Role Phone Alfredo Montoya DO Primary Care Provider [phone] Reason for Visit * - Closed Specialty Diagnoses / Procedures Referred By Rogers t Referred To Contact Procedures Film Library- Storage Only CT Head Alfredo Montoya DO [address] [place] [address] Referral ID Status Reason Start Date Expiration Date Visits Re quested Visits Authorized [id number] Closed 01/05/2021 01/05/2022 1 1 Encounter Details Date Type Department Care Team (Late st Contact Info) Description 01/05/2021 12:25 PM EDT Ancillary Procedure Radiology Library at [facility] [place] [address] Alfredo Montoya DO [address] [place] [address] Social History Tobacco Use Types [...] EDT Office Visit Radiation Oncology at [address] [phone] Taya De La Vega PA [facility] DR [place]EMATOLOGY [place] [address] 11/13/2024 2:00 PM EDT Office Visit Hematology/Oncology at [address] [phone] Kirt Kennedy MD [facility] DR HEMATOLOGY [place] [address] Alem Lazaro APRN [address] [place] [address] DR HEMATOLOGY AND ONCOLOGY [place], [place] [id number] documented as of this encounter Procedures Procedure Name Priority Date/Time Associated Diagnosis Comments FILM LIBRARY STORAGE ONLY CT HEAD Routine 01/05/2021 12:23 PM EDT documented in this encounter Results * Film Library- Storage Only CT Head (01/05/2021 12:23 PM EDT) Narrative [facility] - 01/05/2021 12:23 PM EDT This exam is auto-finalizing. It's purpose is for storage only. Alfredo Montoya DO [facility] [place] FILM LIBRARY OR DERABLES Performing Organization Address City/State/[facility] Co de Phone Number [place], [place] documented in this encounter Visit Diagnoses Not on filedocumented in this encounter Care Teams Grain Shipper Relationship Specialty Start Date End Date Alfredo Montoya DO [address] [place] [address] PCP - General Internal Medicine 12/04/19 04/27/23 documented as of this encounter
--- OUTSIDE RECORDS SUMMARY | 2024-07-08 01:33 | XMS_ITS | Encounter Summary ---
Author Organization [facility] Address [facility] [place] [address] Care Team Providers Care Public Speaker Name Role Phone Alfredo Montoya DO Primary Care Provider Encounter Details Date Type Department Care Team (Late st Contact Info) Description 08/29/2020 Ancillary Procedure Radiology Library at [facility] [place] [address] Alfredo Montoya DO [address] [place] [address] Social History Tobacco Use Types Packs/Day Years [...] EDT Office Visit Radiation Oncology at [address] [phone] Taya De La Vega PA [facility] HEMATOLOGY [place] [address] 11/13/2024 2:00 PM EDT Office Visit Hematology/Oncology at [address] [phone] Kirt Kennedy MD [facility] DR [place] [address] Alem Lazaro, CHOLO [address] [place] [address] DR [place] [address] documented as of this encounter Procedures Procedure Name Priority Date/Time Associated Diagnosis Comments FILM LIBRARY STORAGE ONLY CT HEAD AND SPINE Routine 08/29/2020 12:00 AM EST documented in this encounter Results * Film Library- Storage Only CT Head And Spine (08/29/2020 12:00 AM EST) Narrative [facility] - 10/05/2020 4:19 AM EST This exam is auto-finalizing. It's purpose is for storage only. Alfredo Montoya DO [facility] FILM LIBRARY OR DERABLES Performing Organization Address City/State/[facility] Co de Phone Number [place], [place] documented in this encounter Visit Diagnoses Not on filedocumented in this encounter Care Teams Public Speaker Relationship Specialty Start Date End Date Alfredo Montoya DO [address] [place] [address] PCP - General Internal Medicine 12/04/19 04/27/23 documented as of this encounter
--- OUTSIDE RECORDS SUMMARY | 2024-07-08 01:33 | XMS_ITS | Encounter Summary ---
Author Organization [facility] Address [facility] [place] [address] Care Team Providers Care Operations Supervisor 2Nd Shift Name Role Phone Alfredo Montoya DO Primary Care Provider +1- [phone] Encounter Details Date Type Department Care Team (Late Contact Info) Description 02/18/2021 5:10 PM EDT Ancillary Procedure Radiology Library at [facility] [place] [phone] Social History Tobacco Use Types Packs/Day Years [...] EDT Office Visit Radiation Oncology at [address] [phone] Taya De La Vega PA [facility] HEMATOLOGY AND ONCOLOGY [place] [address] 11/13/2024 2:00 PM EDT Office Visit Hematology/Oncology at [address] [phone] Kirt Kennedy MD [facility] HEMATOLOGY AND ONCOLOGY [place] [address] Alem Lazaro APRN [address] [place] [address] DR HEMATOLOGY [place] [address] documented as of this encounter Procedures Procedure Name Priority Date/Time Associated Diagnosis Comments FILM LIBRARY STORAGE ONLY DX UPPER EXTREMITY STAT 02/18/2021 4:57 PM EDT documented in this encounter Results * Film Library- Storage Only DX Upper Extremity (02/18/2021 4:57 PM EDT) Narrative [facility] - 02/18/2021 4:57 PM EDT This exam is auto-finalizing. It's purpose is for storage only. Eduard Luu MD IMG FILM LIBRARY ORD ERABLES Performing Organization Address City/State/[facility] Co de Phone Number [place], [place] documented in this encounter Visit Diagnoses Not on filedocumented in this encounter Care Teams Operations Supervisor 2Nd Shift Relationship Specialty Start Date End Date Alfredo Montoya DO [address] [place] [address] PCP - General Internal Medicine 12/04/19 04/27/23 documented as of this encounter
--- OUTSIDE RECORDS SUMMARY | 2024-07-08 01:33 | XMS_ITS | Encounter Summary ---
Author Organization [facility] Address [facility] [place] [address] Care Team Providers Care Hosiery Repairer Name Role Phone Alfredo Montoya DO Primary Care Provider [phone] Encounter Details Date Type Department Care Team (Late st Contact Info) Description 08/26/2020 12:10 AM EST Ancillary Procedure Radiology Library at [facility] [place] [address] Alfredo Montoya, DO [address] [place] [address] Social History Tobacco Use Types Packs/Day Years [...] EDT Office Visit Radiation Oncology at [address] [phone] Taya De La Vega PA [facility] HEMATOLOGY [place] [address] 11/13/2024 2:00 PM EDT Office Visit Hematology/Oncology at [address] [phone] Kirt Kennedy MD [facility] DR [place] [address] Alem Lazaro, REPORTING DEVELOPER [address] [place] [address] HEMATOLOGY AND ONCOLOGY [place], [place] [address] documented as of this encounter Procedures Procedure Name Priority Date/Time Associated Diagnosis Comments FILM LIBRARY STORAGE ONLY DX PELVIS Routine 08/26/2020 12:10 AM EST documented in this encounter Results * Film Library- Storage Only DX Pelvis (08/26/2020 12:10 AM EST) Narrative [facility] - 10/05/2020 4:53 AM EST This exam is auto-finalizing. It's purpose is for storage only. Alfredo Montoya DO [facility] FILM LIBRARY OR DERABLES Performing Organization Address City/State/[facility] Co de Phone Number [place], [place] documented in this encounter Visit Diagnoses Not on filedocumented in this encounter Care Teams Hosiery Repairer Relationship Specialty Start Date End Date Alfredo Montoya DO [address] [place] [address] PCP - General Internal Medicine 12/04/19 04/27/23 documented as of this encounter
--- OUTSIDE RECORDS SUMMARY | 2024-07-08 01:33 | XMS_ITS | Encounter Summary ---
Author Organization [facility] [place] [address] Care Team Providers Care Executive Legal Secretary Name Role Phone Alfredo Montoya DO Primary Care Provider [phone] Encounter Details Date Type Department Care Team (Late st Contact Info) Description 04/25/2020 10:00 AM EDT Office Visit Radiation Oncology at [address] [place] [address] Que Evans MD [address] [place] [address] [place] [address] Malignant neoplasm of prostate Social [...] 04/25/20 Que Evans MD, MS Radiation Oncology [facility] [phone] (paging wrapper operator) Pager #[phone] PATIENT IDENTIFICATION Name Narcisa Eduardo Date of 1945 PCP Alfredo Montoya DO Referring MD (if different) Dr. 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, Gl [...] EDT Office Visit Radiation Oncology at [address] [phone] Taya De La Vega PA [facility] [place] [address] 11/13/2024 2:00 PM EDT Office Visit Hematology/Oncology at [address] [phone] Kirt Kennedy MD [facility] DR [place] [address] Alem Lazaro APRN [address] [place] [address] DR [place] [address] documented as of this encounter Visit Diagnoses Diagnosis Malignant neoplasm of prostate documented in this encounter Care Teams Executive Legal Secretary Relationship Specialty Start Date End Date Alfredo Montoya DO [address] [place] [address] PCP - General Internal Medicine 12/04/19 04/27/23 documented as of this encounter
--- OUTSIDE RECORDS SUMMARY | 2024-07-08 01:33 | XMS_ITS | Encounter Summary ---
Author Organization [facility] [place] [place] [address] Care Team Providers Care Nuclear Equipment Research Engineer Name Role Phone Alfredo Montoya DO Primary Care Provider [phone] Encounter Details Date Type Department Care Team (Late st Contact Info) Description 10/04/2020 Telephone Radiation Oncology at [address] [phone] Noelle Ramirez RN Social History [...] PM EST Radiation Oncology Nurse Telephone Note [facility] [place] [place] [place] Follow-up telephone call to patient to [...] EDT Office Visit Radiation Oncology at [address] [phone] Taya De La Vega PA [facility] DR HEMATOLOGY [place] [address] 11/13/2024 2:00 PM EDT Office Visit Hematology/Oncology at [address] [phone] Kirt Kennedy MD [facility] DR HEMATOLOGY [place] [address] Alem Lazaro APRN [address] [place] [address] DR HEMATOLOGY AND ONCOLOGY [place], [place] [phone] documented as of this encounter Visit Diagnoses Not on filedocumented in this encounter Care Teams Nuclear Equipment Research Engineer Relationship Specialty Start Date End Date Alfredo Montoya DO [address] [place] [address] PCP - General Internal Medicine 12/04/19 04/27/23 documented as of this encounter
--- OUTSIDE RECORDS SUMMARY | 2024-07-08 01:33 | XMS_ITS | Encounter Summary ---
Author Organization [place] [address] Care Team Providers Care Sign Artist Name Role Phone Alfredo Montoya DO Primary Care Provider [phone] Encounter Details Date Type Department Care Team (Late st Contact Info) Description 04/26/2020 10:00 AM EDT Notes Only Radiation Oncology at [address] [phone] Que Evans MD [address] [place] [address] DR RADIATION ONCOLOGY [place], [place] [phone] Social History Tobacco Use Types Packs/Day Years [...] Summary Que Evans MD, MS Radiation Oncology [facility] [phone] (paging electric truck operator) Pager #[phone] PATIENT IDENTIFICATION ?? Name Narcisa Eduardo Date of 1945 ? PCP Alfredo Montoya, DO Referring MD (if different) Dr. Martha Montoya ([place]) ? 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, [...] FOLLOWUP: Follow-up visit with Radiation Oncology in [facility] is scheduled for 07/26/20 for PSA and [...] EDT Office Visit Radiation Oncology at [address] [phone] Taya De La Vega PA [facility] [place] [address] 11/13/2024 2:00 PM EDT Office Visit Hematology/Oncology at [address] [phone] Kirt Kennedy MD [facility] [place] [address] Alem Lazaro, [address] [place]OLOG[place] [address] documented as of this encounter Visit Diagnoses Not on filedocumented in this encounter Care Teams Sign Artist Relationship Specialty Start Date End Date Alfredo Montoya DO [address] [place] [address] PCP - General Internal Medicine 12/04/19 04/27/23 documented as of this encounter
--- OUTSIDE RECORDS SUMMARY | 2024-07-08 01:33 | XMS_ITS | Encounter Summary ---
Author Organization [facility] Address [facility] [place] [address] Care Team Providers Care Bingo Checker Name Role Phone Alfredo Montoya DO Primary Care Provider [phone] Encounter Details Date Type Department Care Team (Late st Contact Info) Description 08/30/2020 Ancillary Procedure Radiology Library [place] [address] Alfredo Montoya DO [address] [place] [address] Social History Tobacco Use Types Packs/Day Years [...] EDT Office Visit Radiation Oncology at [address] [phone] Taya De La Vega PA [facility] HEMATOLOGY [place] [address] 11/13/2024 2:00 PM EDT Office Visit Hematology/Oncology at [address] [phone] Kirt Kennedy MD [facility] DR HEMATOLOGY [place] [address] Alem Lazaro, CHOLO [address] [place] [address] DR [place]EMATOLOGY [place] [address] documented as of this encounter Procedures Procedure Name Priority Date/Time Associated Diagnosis Comments FILM LIBRARY STORAGE ONLY ANGIO STUDY Routine 08/30/2020 12:00 AM EST documented in this encounter Results * Film Library- Storage Only Angio Studies (08/30/2020 12:00 AM EST) Narrative [facility] - 10/05/2020 4:48 AM EST This exam is auto-finalizing. It's purpose is for storage only. Alfredo Montoya DO IMG FILM LIBRARY OR DERABLES Performing Organization Address City/State/[facility] Co de Phone Number [place], [place] documented in this encounter Visit Diagnoses Not on filedocumented in this encounter Care Teams Bingo Checker Relationship Specialty Start Date End Date Alfredo Montoya DO [address] [place] [address] PCP - General Internal Medicine 12/04/19 04/27/23 documented as of this encounter
--- OUTSIDE RECORDS SUMMARY | 2024-07-08 01:33 | XMS_ITS | Encounter Summary ---
Author Organization [facility] [place] [address] Care Team Providers Care Jet Operator Name Role Phone Alfredo Montoya DO Primary Care Provider [phone] Encounter Details Date Type Department Care Team (Late st Contact Info) Description 11/07/2020 11:15 AM EDT TH Visit (TeleHealth) Radiation Oncology at [address] [phone] Mojgan Pierre, CLIENT SUPPORT ASSOCIATE [address] [place] [address] RADIATION ONCOLOGY [place], [place] [id number] Intracranial bleed; Malignant neoplasm of prostate Social [...] Referring MD (if different) Dr. Martha Montoya ([place]) ? 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 HISTORY OF PRESENT ILLNESS: Narcisa Eduardo??is a 74 y.o.??male??diagnosed with an unfavorable intermediate- risk prostate cancer. ?? Presenting Symptoms / Duration:?? ePSA; per pt he has had ERIKA in past that did not show any nodules ?? Prior consultations / recommendations: Dr Thomas - [facility] [place] 12/[place] - options of , RP, RT reviewed. Patient interested in learning more about RT. Referral placed.? PSA History:?? 11/03/19 - 12.9 ?? Pathology Results / Location:?? TRUS Bx 11/23/19 ([facility] [place] - ?Gl 4+3 x 1 - Left [...] CENTER Dr Ko ??? PROSTATE BIOPSY 11/23/2019 Allergies [...] seen in clinic Narcisa was hospitalized in [place] due to a brain aneurysm and cranial [...] pushing fluids/water. He currently is on a rn cardiac rehab and this is scheduled for a duration of four weeks. He has nothad any new seizures and has a neurologist locally through [facility]. See ROS ROS: Constitutional: + fatigue, no fevers, no chills, Resp: negative CV: No chest pain. + on rn cardiac rehab x 4 weeks. Neuro; see interim history. [...] his home. Hopes to start work inhis 8digits soon Psych: mood overall positive Support system: [...] bleed He was treated for this in [place]. He has a neurologist locally at [facility]. His next prostate cancer followup will [...] EDT Office Visit Radiation Oncology at [address] [phone] Taya De La Vega PA [facility] DR [place] [address] 11/13/2024 2:00 PM EDT Office Visit Hematology/Oncology at [address] [phone] Kirt Kennedy MD [facility] DR [place] [address] Alem Lazaro APRN [address] [place] [address] DR HEMATOLOGY AND ONCOLOGY [place], [place] [address] documented as of this encounter Visit Diagnoses Diagnosis Intracranial bleed Unspecified intracranial hemorrhage Malignant neoplasm of prostate documented in this encounter Care Teams Jet Operator Relationship Specialty Start Date End Date Alfredo Montoya DO [address] [place] [address] PCP - General Internal Medicine 12/04/19 04/27/23 documented as of this encounter
--- OUTSIDE RECORDS SUMMARY | 2024-07-08 01:33 | XMS_ITS | Encounter Summary ---
Author Organization Formerly [facility], [facility] Address [facility] [address] Care Team Providers Care Generator Man Name Role Phone Alfredo Montoya DO Primary Care Provider Encounter Details Date Type Department Care Team (Late st Contact Info) Description 09/01/2020 Ancillary Procedure Radiology Library at [facility] [place] [phone] Alfredo Montoya DO [address] [place] [address] Social History Tobacco Use Types Packs/Day Years [...] EDT Office Visit Radiation Oncology at [address] [phone] Taya De La Vega PA [facility] H[place]ATOLOG[place] [address] 11/13/2024 2:00 PM EDT Office Visit Hematology/Oncology at [address] [phone] Kirt Kennedy MD [facility] DR HEMATOLOGY [place] [address] Alem Lazaro, CHOLO [address] [place] [address] [place] [address] documented as of this encounter Procedures Procedure Name Priority Date/Time Associated Diagnosis Comments FILM LIBRARY STORAGE ONLY CT HEAD Routine 09/01/2020 12:00 AM EST documented in this encounter Results * Film Library- Storage Only CT Head (09/01/2020 12:00 AM EST) Narrative [facility] - 10/05/2020 4:54 AM EST This exam is auto-finalizing. It's purpose is for storage only. Alfredo Montoya DO IMG FILM LIBRARY OR DERABLES Performing Organization Address City/State/[facility] Co de Phone Number [place], [place] documented in this encounter Visit Diagnoses Not on filedocumented in this encounter Care Teams Generator Man Relationship Specialty Start Date End Date Alfredo Montoya DO [address] [place] [address] PCP - General Internal Medicine 12/04/19 04/27/23 documented as of this encounter
--- OUTSIDE RECORDS SUMMARY | 2024-07-08 01:33 | XMS_ITS | Encounter Summary ---
Author Organization [facility] [place] [address] Care Team Providers Care Brainer Name Role Phone Alfredo Montoya DO Primary Care Provider [phone] Encounter Details Date Type Department Care Team (Latest Contact Info) Description 04/16/2020 10:30 AM EDT Clinical Support Hematology/Oncology at [address] [phone] Malignant neoplasm [...] Johnson RD - 04/16/2020 10:30 AM EDT [facility] Dietitian Follow Up Seen By: Kristyn Johnson [...] Am: first meal around 10 or 11, indonesian muffin with egg on one side and [...] EDT Office Visit Radiation Oncology at [address] [phone] Taya De La Vega PA [facility] DR HEMATOLOGY [place] [address] 11/13/2024 2:00 PM EDT Office Visit Hematology/Oncology at [address] [phone] Kirt Kennedy MD [facility] DR HEMATOLOGY [place] [address] Alem Lazaro APRN [address] [place] [address] DR HEMATOLOGY AND ONCOLOGY [place], [place] [phone] documented as of this encounter Visit Diagnoses Diagnosis Malignant neoplasm of prostate documented in this encounter Care Teams Brainer Relationship Specialty Start Date End Date Alfredo Montoya DO [address] [place] [address] PCP - General Internal Medicine 12/04/19 04/27/23 documented as of this encounter
--- OUTSIDE RECORDS SUMMARY | 2024-07-08 01:33 | XMS_ITS | Encounter Summary ---
Author Organization [facility] [place] [address] Care Team Providers Care Brokerage Manager Name Role Phone Alfredo Montoya DO Primary Care Provider [phone] Encounter Details Date Type Department Care Team (Late st Contact Info) Description 03/07/2020 10:00 AM EDT Office Visit Radiation Oncology at [address] [phone] Que Evans MD [address] [place] [address] DR RADIATION ONCOLOGY [place], [place] [id number] Malignant neoplasm of prostate Social History Tobacco [...] 03/07/20 Que Evans MD, MS Radiation Oncology [facility] [phone] (paging adhesive bandage machine operator) Pager #[phone] PATIENT IDENTIFICATION Name Narcisa Eduardo Date of [...] EDT Office Visit Radiation Oncology at [address] [phone] Taya De La Vega PA [facility] DR HEMATOLOGY [place] [address] 11/13/2024 2:00 PM EDT Office Visit Hematology/Oncology at [address] [phone] Kirt Kennedy MD [facility] DR HEMATOLOGY [place] [address] Alem Lazaro, [address] HEMATOLOGY AND ONCOLOGY [place], [place] [address] documented as of this encounter Visit Diagnoses Diagnosis Malignant neoplasm of prostate documented in this encounter Care Teams Brokerage Manager Relationship Specialty Start Date End Date Alfredo Montoya DO [address] [place] [address] PCP - General Internal Medicine 12/04/19 04/27/23 documented as of this encounter
--- OUTSIDE RECORDS SUMMARY | 2024-07-08 01:33 | XMS_ITS | Encounter Summary ---
Author Organization [facility] Address [facility] [place] [address] Care Team Providers Care Supervisor Dimension Warehouse Name Role Phone Alfredo Montoya DO Primary Care Provider [phone] Encounter Details Date Type Department Care Team (Late st Contact Info) Description 12/30/2020 3:00 PM EDT Office Visit Hematology/Oncology at [address] [phone] Kirt Kennedy MD [facility] DR [place] [address] Martha Card, RN Malignant neoplasm of prostate; [...] encounter Progress Notes * Kyaw Martha Jeremy, [facility] - 12/30/2020 3:00 PM EDT HPI/Interval History/Subjective: Narcisa Eduardo is a 74 y.o. male patient with a PMH of an abdominal aortic aneurysm, thoracic aortic aneurysm, hypertension, prior alcohol abuse, tobacco abuse, A stroke in early 2019 and follicular lymphoma who recently completed EBRT for localized prostate cancer who wishes to followup here in [facility] for his lymphoma rather than at the [facility] given the proximity to his home. 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 3/4 ppd. X30-40 years Alcohol use: Stopped drinking in 09/2019 after a stroke when he was placed on Plavix Drug use: None Loves gardening but can't do it any more. service: [employer]. [place] Era. Had Agent Stewart Exposure. 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 Treated [facility] by Dr. Martha Castañeda - PET-CT 11/26/15 [...] (he opted to not receive ADT) at [facility] with Dr. Evans 02/26-04/26/20 97.2 Gy in 44 fractions PMH: 1. AAA - Abdominal aortic aneurysm 2. Thoracic aortic aneurysm without rupture 3. Follicular non-Hodgkin lymphoma, small cleaved cell 4. Tobacco dependence 5. Alcohol dependence 6. Hypertension 7. Family history of prostate cancer 8. Family history of malignant neoplasm of breast 9. Personal History of Exposure to Agent Stewart Patient Active Problem List Diagnosis Date Noted [...] cell count normal at 6.0, hemoglobin 14.7 [id number] absolute neutrophil count 4.6 absolute lymphocyte count [...] left inguinal node 03/18/15; taken from the [facility] pathology report - Follicular lymphoma NOTE: Sections [...] cancer who wishes to followup here in [facility] for his lymphoma rather than at the [facility] given the proximity to his home. He [...] EDT Office Visit Radiation Oncology at [address] [phone] Taya De La Vega PA [facility] DR [place] [address] 11/13/2024 2:00 PM EDT Office Visit Hematology/Oncology at [address] [phone] Kirt Kennedy MD [facility] DR [place] [address] Alem Lazaro APRN [address] [place] [address] DR HEMATOLOGY AND ONCOLOGY [place], [place] [id number] documented as of this encounter Visit Diagnoses Diagnosis Malignant neoplasm of prostate Follicular lymphoma, unspecified grade, unspecified body region documented in this encounter Care Teams Supervisor Dimension Warehouse Relationship Specialty Start Date End Date Alfredo Montoya DO [address] [place], [place] [phone] PCP - General Internal Medicine 12/04/19 04/27/23 documented as of this encounter
--- OUTSIDE RECORDS SUMMARY | 2024-07-08 01:33 | XMS_ITS | Encounter Summary ---
Author Organization [facility]ly [facility], [facility] Address [facility] [place] [address] Care Team Providers Care Textile Stylist Name Role Phone Alfredo Montoya DO Primary Care Provider [phone] Encounter Details Date Type Department Care Team (Late st Contact Info) Description 08/27/2020 Telephone Neurosurgery at [facility] [place] [place] [phone] Chloé Hummel APRN Social History Tobacco Use [...] the time he arrived to ED at [place]. He is on Keppra 750mg BID at home. Patient is being given KCentra/Vitamin K and Keppra 1 gram load with increase to 1 gram BID. He is neurologically intact and without any deficits since arrival to ED there. MRI Brain with LEFT frontal-parietal [facility] currently has no capacity to take this patient. In light of the fact that [place] has already called (5) other hospitals to [...] EDT Office Visit Radiation Oncology at [address] [phone] Taya De La Vega PA [facility] DR [place] [address] 11/13/2024 2:00 PM EDT Office Visit Hematology/Oncology at [address] [phone] Kirt Kennedy MD [facility] DR [place] [address] Alem Lazaro APRN [address] [place] [address] DR HEMATOLOGY AND ONCOLOGY [place], [place] [phone] documented as of this encounter Visit Diagnoses Not on filedocumented in this encounter Care Teams Textile Stylist Relationship Specialty Start Date End Date Alfredo Montoya DO [address] [place] [address] PCP - General Internal Medicine 12/04/19 04/27/23 documented as of this encounter
--- OUTSIDE RECORDS SUMMARY | 2024-07-08 01:33 | XMS_ITS | Encounter Summary ---
Author Organization [facility] [place] [address] Care Team Providers Care Learning Analyst Name Role Phone Alfredo Montoya DO Primary Care Provider [phone] Encounter Details Date Type Department Care Team (Late st Contact Info) Description 03/21/2020 12:00 PM EDT Office Visit Radiation Oncology at [address] [phone] Que Evans MD [address] [place] [address] [place] [address] Malignant neoplasm of prostate Social [...] 03/21/20 Que Evans MD, MS Radiation Oncology [facility] [phone] (paging projection camera operator) Pager #[phone] PATIENT IDENTIFICATION Name Narcisa Eduardo Date of 1945 PCP Alfredo Montoya DO Referring MD (if different) Dr. 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 MEDICATIONS Medications 03/14/20 4203 Medication Sig Taking? ergocalciferol, vitamin D2, (VITAMIN [...] EDT Office Visit Radiation Oncology at [address] [phone] Taya De La Vega PA [facility] [place] [address] 11/13/2024 2:00 PM EDT Office Visit Hematology/Oncology at [address] [phone] Kirt Kennedy MD [facility] [place] [address] Alem Lazaro APRN [address] [place] [address] DR [place]EM[place]Y [place] [address] documented as of this encounter Visit Diagnoses Diagnosis Malignant neoplasm of prostate documented in this encounter Care Teams Learning Analyst Relationship Specialty Start Date End Date Alfredo Montoya DO [address] [place] [address] PCP - General Internal Medicine 12/04/19 04/27/23 documented as of this encounter
--- OUTSIDE RECORDS SUMMARY | 2024-07-08 01:33 | XMS_ITS | Encounter Summary ---
Author Organization [facility] [place] [address] Care Team Providers Care Marketing Operations Consultant Name Role Phone Alfredo Montoya DO Primary Care Provider [phone] Encounter Details Date Type Department Care Team (Late st Contact Info) Description 07/26/2020 3:15 PM EST Office Visit Radiation Oncology at [address] [phone] Ashley Wong, AFFIRMATIVE ACTION SPECIALIST Malignant neoplasm of prostate Social History [...] Visit Ashley Wong MS CHOLO Radiation Oncology [facility] PATIENT IDENTIFICATION ?? Name Narcisa Eduardo Date of 1945 ? PCP Alfredo Montoya, DO Referring MD (if different) Dr. Martha Montoya ([place]) ? 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 Patient interested in learning more about RT. Referral placed. ?? PSA History: 11/03/19 - 12.9 ?? Pathology Results / Location: TRUS Bx 11/23/19 ([facility]) - Gl 4+3 x 1 [...] quickly. He went to the ER at [facility]. He had both stool and urine incontinence. [...] EDT Office Visit Radiation Oncology at [address] [phone] Taya De La Vega PA [facility] HEMATOLOGY [place] [address] 11/13/2024 2:00 PM EDT Office Visit Hematology/Oncology at [address] [phone] Kirt Kennedy MD [facility] HEMATOLOGY [place] [address] Alem Lazaro, [address] [place] [address] documented as of this encounter Visit Diagnoses Diagnosis Malignant neoplasm of prostate documented in this encounter Care Teams Marketing Operations Consultant Relationship Specialty Start Date End Date Alfredo Montoya DO [address] [place] [address] PCP - General Internal Medicine 12/04/19 04/27/23 documented as of this encounter
--- OUTSIDE RECORDS SUMMARY | 2024-07-08 01:33 | XMS_ITS | Encounter Summary ---
Author Organization [facility] Address [facility] [place] [address] Care Team Providers Care Front Office Spec Name Role Phone Alfredo Montoya DO Primary Care Provider [phone] Encounter Details Date Type Department Care Team (Late Contact Info) Description 02/18/2021 5:05 PM EDT Ancillary Procedure Radiology Library at [facility] [place] [phone] Social History Tobacco Use Types Packs/Day Years [...] EDT Office Visit Radiation Oncology at [address] [phone] Taya De La Vega PA [facility] HEMATOLOGY AND ONCOLOGY [place] [address] 11/13/2024 2:00 PM EDT Office Visit Hematology/Oncology at [address] [phone] Kirt Kennedy MD [facility] HEMATOLOGY AND ONCOLOGY [place] [address] Alem Lazaro APRN [address] [place] [address] DR HEMATOLOGY [place] [address] documented as of this encounter Procedures Procedure Name Priority Date/Time Associated Diagnosis Comments FILM LIBRARY STORAGE ONLY DX CHEST STAT 02/18/2021 4:56 PM EDT documented in this encounter Results * Film Library- Storage Only DX Chest (02/18/2021 4:56 PM EDT) Narrative [facility] - 02/18/2021 4:56 PM EDT This exam is auto-finalizing. It's purpose is for storage only. Eduard Luu MD IMG FILM LIBRARY ORD ERABLES [place], [place] documented in this encounter Visit Diagnoses Not on filedocumented in this encounter Care Teams Front Office Spec Relationship Specialty Start Date End Date Alfredo Montoya DO [address] [place] [address] PCP - General Internal Medicine 12/04/19 04/27/23 documented as of this encounter
--- OUTSIDE RECORDS SUMMARY | 2024-07-08 01:33 | XMS_ITS | Encounter Summary ---
Author Organization [facility] [place] [address] Care Team Providers Care Forensic Chemist Name Role Phone Alfredo Montoya DO Primary Care Provider [phone] Encounter Details Date Type Department Care Team (Late st Contact Info) Description 04/18/2020 10:00 AM EDT Office Visit Radiation Oncology at [address] [place] [phone] Que Evans MD [address] [place] [address] [place] [address] Malignant neoplasm of prostate Social [...] 04/18/20 Que Evans MD, MS Radiation Oncology [facility] [phone] (paging calciner operator helper) Pager #[phone] PATIENT IDENTIFICATION Name Narcisa Eduardo Date of [...] EDT Office Visit Radiation Oncology at [address] [phone] Taya De La Vega PA [facility] [place] [address] 11/13/2024 2:00 PM EDT Office Visit Hematology/Oncology at [address] [phone] Kirt Kennedy MD [facility] DR [place] [address] Alem Lazaro APRN [address] [place] [address] DR [place] [address] documented as of this encounter Visit Diagnoses Diagnosis Malignant neoplasm of prostate documented in this encounter Care Teams Forensic Chemist Relationship Specialty Start Date End Date Alfredo Montoya DO [address] [place] [address] PCP - General Internal Medicine 12/04/19 04/27/23 documented as of this encounter
--- OUTSIDE RECORDS SUMMARY | 2024-07-08 01:34 | XMS_ITS | Encounter Summary ---
Author Organization [facility] Address [facility] [place] [address] Care Team Providers Care Video Recorder Mechanic Name Role Phone Robson Robles MD Primary Care Provider [phone] Encounter Details Date Type Department Care Team (Late st Contact Info) Description 12/07/2018 Ancillary Procedure Radiology Library at [facility] [place] [phone] Que Evans MD [address] [place] [address] DR RADIATION ONCOLOGY [place], [place] [phone] Social History Tobacco Use Types Packs/Day Years [...] EDT Office Visit Radiation Oncology at [address] [phone] Taya De La Vega PA [facility] DR HEMATOLOGY [place] [address] 11/13/2024 2:00 PM EDT Office Visit Hematology/Oncology at [address] [phone] Kirt Kennedy MD [facility] DR HEMATOLOGY [place] [address] Alem Lazaro APRN [address] [facility] [address] [place] [address] documented as of this encounter Procedures Procedure Name Priority Date/Time Associated Diagnosis Comments FILM LIBRARY STORAGE ONLY CT CHEST ABDOMEN PELVIS Routine 12/07/2018 12:00 AM EDT documented in this encounter Results * Film Library- Storage Only CT Chest Abdomen Pelvis (12/07/2018 12:00 AM EDT) Narrative [facility] - 12/13/2019 5:24 PM EDT This exam is auto-finalizing. It's purpose is for storage only. Que Evans MD IMG FILM LIBRARY ORD ERABLES [place], [place] documented in this encounter Visit Diagnoses Not on filedocumented in this encounter Care Teams Video Recorder Mechanic Relationship Specialty Start Date End Date Robson Robles MD [address] [facility] [place] [address] PCP - General 03/18/15 08/22/19 documented as of this encounter
--- OUTSIDE RECORDS SUMMARY | 2024-07-08 01:34 | XMS_ITS | Encounter Summary ---
Author Organization [place] [address] Care Team Providers Care Hr Advisor Name Role Phone Alfredo Montoya DO Primary Care Provider [phone] Encounter Details Date Type Department Care Team (Late st Contact Info) Description 01/17/2020 Telephone Radiation Oncology at [address] [phone] Meng Chauhan Social History Tobacco [...] EDT Office Visit Radiation Oncology at [address] [phone] Taya De La Vega PA [facility] DR [place] [address] 11/13/2024 2:00 PM EDT Office Visit Hematology/Oncology at [address] [phone] Kirt Kennedy MD [facility] DR [place] [address] Alem Lazaro APRN [address] [place] [address] DR HEMATOLOGY AND ONCOLOGY [place], [place] [address] documented as of this encounter Visit Diagnoses Not on filedocumented in this encounter Care Teams Hr Advisor Relationship Specialty Start Date End Date Alfredo Montoya DO [address] [place] [address] PCP - General Internal Medicine 12/04/19 04/27/23 documented as of this encounter
--- OUTSIDE RECORDS SUMMARY | 2024-07-08 01:34 | XMS_ITS | Encounter Summary ---
Author Organization [facility] [place] [address] Care Team Providers Care Automation Technologist Name Role Phone Alfredo Montoya DO Primary Care Provider [phone] Reason for Visit * Consultation (Routine) - Specialty Diagnoses / Procedures Referred By Rogesr t Referred To Contact Radiation Oncology Diagnoses Malignant neoplasm of prostate Procedures Simulation for Radiation Therapy Planning Que Evans MD [address] [place] [address] [place] [address] [facility] Rad Onc Office [address] [place] [phone] Referral ID Status Reason Start Date Expiration Date V isits Requested Visits Authorized [id number] Consult, Test & Treat 12/01/2019 05/29/2020 99 99 Encounter Details Date Type Department Care Team (Late st Contact Info) Description 02/14/2020 11:00 AM EDT Ancillary Appointment Radiation Oncology at [address] [phone] Que Evans MD [address] [place] [address] [place] [address] Social History Tobacco Use Types [...] kaushal to help manage the side effects. 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 The online project manager and nurse will inform you of any [...] - Wednesday 8 AM to 5 PM [facility] phone# [phone] [facility] If you have questions about your [...] in injury A Radiation Oncology doctor is sporting goods salesperson after our normal hours and on weekends. To call for urgent medical issues from radiation treatments that can not wait until normal business hours, please call for either location and have the mat machine operator page the Radiation Oncologist sporting goods salesperson. documented in this encounter Progress Notes * Que Evasn MD - 02/14/2020 11:00 AM EDT Simulation Note for External Beam Radiation Treatment Planning [facility] Javi Eduardo is a 74 y.o. year [...] of any short term side effects or intermediate complications of therapy. I anticipate his prescription [...] EDT Office Visit Radiation Oncology at [address] [phone] Taya De La Vega PA [facility] HEMATOLOGY [place] [address] 11/13/2024 2:00 PM EDT Office Visit Hematology/Oncology at [address] [phone] Kirt Kennedy MD [facility] DR HEMATOLOGY [place] [address] Alem Lazaro APRN [address] [place] [address] DR HEMATOLOGY [place] ONCOLOGY [place], [place] [id number] Scheduled Orders Name Type Priority Associated Diagnoses Orde r Schedule Simulation for Radiation Therapy Planning Procedures Routine Malignant neoplasm of prostate Ordered: 01/18/2020 documented as of this encounter Visit Diagnoses Not on filedocumented in this encounter Care Teams Automation Technologist Relationship Specialty Start Date End Date Alfredo Montoya DO [address] [place] [address] PCP - General Internal Medicine 12/04/19 04/27/23 documented as of this encounter
--- OUTSIDE RECORDS SUMMARY | 2024-07-08 01:34 | XMS_ITS | Encounter Summary ---
Author Organization [facility] Address [facility] [place] [address] Care Team Providers Care Assistance Coordinator Name Role Phone Alfredo Montoya DO Primary Care Provider [phone] Encounter Details Date Type Department Care Team (Latest Contact Info) Description 03/01/2020 1:00 PM EDT Clinical Support Hematology/Oncology at [address] [phone] Malignant neoplasm [...] Johnson RD - 03/01/2020 1:00 PM EDT [facility] Initial Dietitian Assessment Seen By: Kristyn Johnson [...] Am: first meal around 10 or 11, croatian muffin with egg on one side and [...] EDT Office Visit Radiation Oncology at [address] [phone] Taya De La Vega PA [facility] HEMATOLOGY [place] [address] 11/13/2024 2:00 PM EDT Office Visit Hematology/Oncology at [address] [phone] Kirt Kennedy MD [facility] DR HEMATOLOGY [place] [address] Alem Lazaro APRN [address] [place] [address] DR HEMATOLOGY AND ONCOLOGY [place], [place] [id number] documented as of this encounter Visit Diagnoses Diagnosis Malignant neoplasm of prostate documented in this encounter Care Teams Assistance Coordinator Relationship Specialty Start Date End Date Alfredo Montoya DO [address] [place] [address] PCP - General Internal Medicine 12/04/19 04/27/23 documented as of this encounter
--- OUTSIDE RECORDS SUMMARY | 2024-07-08 01:34 | XMS_ITS | Encounter Summary ---
Author Organization [facility] [place] [address] Care Team Providers Care Rug Renovator Name Role Phone Alfredo Montoya DO Primary Care Provider [phone] Reason for Visit * Reason Onset Date Comments Other 02/13/2020 covid screening Encounter Details Date Type Department Care Team (Late st Contact Info) Description 02/13/2020 Telephone Radiation Oncology at [address] [phone] Joana Roberts MSW OFFICE OF [...] in the office. If you have a oil truck driver for your appointment we ask [...] symptomatic you will need to wear a [facility]-issued mask. PHONE SCREENING: ??? In order for [...] EDT Office Visit Radiation Oncology at [address] [phone] Taya De La Vega PA [facility] [place] [address] 11/13/2024 2:00 PM EDT Office Visit Hematology/Oncology at [address] [phone] Kirt Kennedy MD [facility] DR [place]AT[place] [address] Alem Lazaro APRN [address] [place] [address] DR HEMATOLOGY AND ONCOLOGY [place], [place] [address] documented as of this encounter Visit Diagnoses Not on filedocumented in this encounter Care Teams Rug Renovator Relationship Specialty Start Date End Date Alfredo Montoya DO [address] [place] [address] PCP - General Internal Medicine 12/04/19 04/27/23 documented as of this encounter
--- OUTSIDE RECORDS SUMMARY | 2024-07-08 01:34 | XMS_ITS | Encounter Summary ---
Author Organization [facility] Address [facility] [place] [address] Care Team Providers Care Yarn Worker Name Role Phone Alfredo Montoya DO Primary Care Provider Encounter Details Date Type Department Care Team (Late Contact Info) Description 02/02/2020 3:00 PM EDT Telephone Radiation Oncology at [address] [phone] Que Evans MD [address] [place] [address] [place] [address] Rad [facility] Social History [...] EDT Office Visit Radiation Oncology at [address] [phone] Taya De La Vega PA [facility] DR HEMATOLOGY [place] [address] 11/13/2024 2:00 PM EDT Office Visit Hematology/Oncology at [address] [phone] Kirt Kennedy MD [facility] DR HEMATOLOGY [place] [address] Alem Lazaro APRN [address] [place] [address] [place] [address] documented as of this encounter Visit Diagnoses Not on filedocumented in this encounter Care Teams Yarn Worker Relationship Specialty Start Date End Date Alfredo Montoya DO [address] [place] [address] PCP - General Internal Medicine 12/04/19 04/27/23 documented as of this encounter
--- OUTSIDE RECORDS SUMMARY | 2024-07-08 01:34 | XMS_ITS | Encounter Summary ---
Author Organization [facility] [place] [address] Care Team Providers Care Cisco Unified Communications Engineer Name Role Phone Alfredo Montoya DO Primary Care Provider [phone] Reason for Referral * Consultation (Routine) - Specialty Diagnoses / Procedures Referred By Contaryan t Referred To Contact Radiation Oncology Diagnoses Malignant neoplasm of prostate Procedures Simulation for Radiation Therapy Planning Que Evans MD [address] [place] [address] [place] [address] [facility] Rad Onc Office [address] [place] [phone] Referral ID Status Reason Start Date Expiration Date V isits Requested Visits Authorized [id number] Consult, Test & Treat 12/01/2019 05/29/2020 99 99 Encounter Details Date Type Department Care Team (Late st Contact Info) Description 01/18/2020 8:30 AM EDT Office Visit Radiation Oncology at [address] [phone] Que Evans MD [address] [place] [address] [place] [address] Malignant neoplasm of prostate Social [...] shorter course and while safe in the director pharmacy services it might be associated with slightly higher [...] urination). There may be a slow, director pharmacy services decrease in your sexual function as well, [...] do not hesitate to call me at [phone] with any other questions or concerns you have. IfI am not here, one of our radiation oncology nurses can assist you or help you get in touch with me. A Radiation Oncology doctor is also tanner rotary drum continuous process after our normal hours and on weekends for urgent questions or concerns related to radiation treatments that can not wait until normal business hours. To reach the on-call doctor after-hours, just call and have the copy center operator page the Radiation Oncologist tanner rotary drum continuous process. And, as always, if you experience any [...] 7. Uncontrollable bleeding Que Head MD, MS Cook Barbecue of Radiation Oncology [facility] documented in this encounter Progress Notes * Que Evans MD - 01/18/2020 8:30 AM EDT Radiation Oncology Established Patient Followup Note Que Evans MD, MS [facility] Patient Identification: Narcisa Eduardo is a [...] minute visit was spent with the patient [id number] reviewing his interval medical history and answering questions related to his prostate cancer. documented in this encounter Plan of Treatment Upcoming Encounters Date Type Department Care Team (Late st Contact Info) Description 11/09/2024 10:30 AM EDT Office Visit Radiation Oncology at [address] [phone] Taya De La Vega PA [facility] DR [place] [address] 11/13/2024 2:00 PM EDT Office Visit Hematology/Oncology at [address] [phone] Kirt Kennedy MD [facility] DR [place] [address] Alem Lazaro APRN [address] [place] [address] DR HEMATOLOGY AND ONCOLOGY [place], [place] [address] Scheduled Orders Name Type Priority Associated Diagnoses Orde r Schedule Simulation for Radiation Therapy Planning Procedures Routine Malignant neoplasm of prostate Ordered: 01/18/2020 documented as of this encounter Visit Diagnoses Diagnosis Malignant neoplasm of prostate documented in this encounter Care Teams Cisco Unified Communications Engineer Relationship Specialty Start Date End Date Alfredo Montoya DO [address] [place] [address] PCP - General Internal Medicine 12/04/19 04/27/23 documented as of this encounter
--- OUTSIDE RECORDS SUMMARY | 2024-07-08 01:34 | XMS_ITS | Encounter Summary ---
Author Organization [facility] Address [facility] [place] [address] Care Team Providers Care Perishable Fruit Inspector Name Role Phone Alfredo Montoya DO Primary Care Provider [phone] Encounter Details Date Type Department Care Team (Late st Contact Info) Description 02/14/2020 10:40 AM EDT Ancillary Procedure Radiology Library at [facility] [place] [phone] Alfredo Montoya, [address] [place] [address] Social History Tobacco Use Types Packs/Day Years [...] EDT Office Visit Radiation Oncology at [address] [phone] Taya De La Vega PA [facility] HEMATOLOGY [place] [address] 11/13/2024 2:00 PM EDT Office Visit Hematology/Oncology at [address] [phone] Kirt Kennedy MD [facility] DR [place] [address] Alem Lazaro APRN [address] [place] [address] DR [place] [address] documented as of this encounter Procedures Procedure Name Priority Date/Time Associated Diagnosis Comments FILM LIBRARY STORAGE ONLY MR PELVIS Routine 02/14/2020 10:39 AM EDT documented in this encounter Results * Film Library- Storage Only MR Pelvis (02/14/2020 10:39 AM EDT) Narrative [facility] - 02/14/2020 10:39 AM EDT This exam is auto-finalizing. It's purpose is for storage only. Alfredo Montoya DO IMG FILM LIBRARY OR DERABLES Performing Organization Address City/State/[facility] Co de Phone Number [place], [place] documented in this encounter Visit Diagnoses Not on filedocumented in this encounter Care Teams Perishable Fruit Inspector Relationship Specialty Start Date End Date Alfredo Montoya DO [address] [place] [address] PCP - General Internal Medicine 12/04/19 04/27/23 documented as of this encounter
--- OUTSIDE RECORDS SUMMARY | 2024-07-08 01:34 | XMS_ITS | Encounter Summary ---
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. This report was reviewed by Daren Davis at 04/15/2015 5:54 PM Film and interpretation reviewed by the attending Narrative 04/15/2015 5:59 PM EDT EXAMINATION: PET/CT STANDARD (Skull base to Mid-thigh) CLINICAL HISTORY: staging lymphoma TECHNIQUE: Procedure: Following IV injection of 02-vjblqj-3-deoxyglucose (FDG) a standard uptake of approximately 60 [...] lymphoma TECHNIQUE: Procedure: Following IV injection of 84-yewxsq-9-deoxyglucose(FDG) a standard uptake of approximately 60 minutes, [...] Thank you for referring this patient to [facility]. This report was reviewed by [...] EDT Eileen Cheung MD POINT OF CARE [facility] ORDERABLES HAFSA BARDALES documented in this [...] mg documented in this encounter Care Teams Cartography Professor Relationship Specialty Start Date End Date Robson Robles MD [address] [facility] [place] [place] [address] PCP - General 03/18/15 08/22/19 documented as of this encounter
--- OUTSIDE RECORDS SUMMARY | 2024-07-08 01:34 | XMS_ITS | Encounter Summary ---
Author Organization [facility] Address [facility] [place] [address] Care Team Providers Care Roofer Helper Vinyl Coating Name Role Phone Alfredo Montoya DO Primary Care Provider [phone] Reason for Visit * Consultation (Routine) - Closed Specialty Diagnoses / Procedures Referred By Rogers t Referred To Contact Radiation Oncology Diagnoses Prostate cancer Prostate Cancer Procedures Treatment Options Estela Thomas MD [facility] [place] [address] Que Evans MD [address] [place] [address] [place] [address] Referral ID Status Reason Start Date Expiration Date Visits Re quested Visits Authorized [id number] Closed 12/01/2019 05/29/2020 1 1 Encounter Details Date Type Department Care Team (Late st Contact Info) Description 01/08/2020 9:00 AM EDT TH Visit (TeleHealth) Radiation Oncology at [address] [phone] Que Evans MD [address] [place] [address] [place] [address] Malignant neoplasm of prostate Social [...] Dear Mr. Eduardo, Dr. Thomas at the [place] asked for me to see you to [...] are considered high risk. 2. Your highest Abbott score was 4+3=7 (this is how aggressive your prostate cancer looks under the microscope). Abbott scores for cancer range from 6-10, and [...] shorter course and while safe in the longwall shearer operator it might be associated with slightly higher [...] bills that you might receive, to a dog show judge. In most cases, we have been told, [...] of completion radiation. 6. SIDE EFFECTS - Retail Zone Specialist: These can include be permanent damage of the radiated tissues, including the rectum/bowel, bladder, prostate and surrounding tissues. Potential serious injury is rare, but can include poor wound healing, bleeding, or destruction of healthy tissue that may require surgery to repair and may result in a colostomy (bag for defecation) or urostomy (bag for urination). There may be a slow, custodial decrease in your sexual function as well, [...] do not hesitate to call me at [phone] with any other questions or concerns you have. IfI am not here, one of our radiation oncology nurses can assist you or help you get in touch with me. A Radiation Oncology doctor is also regional marketing director after our normal hours and on weekends for urgent questions or concerns related to radiation treatments that can not wait until normal business hours. To reach the on-call doctor after-hours, just call and have the acds block 1 operator page the Radiation Oncologist regional marketing director. And, as always, if you experience any [...] 7. Uncontrollable bleeding Que Head MD, MS Medical Coding Auditor of Radiation Oncology [facility] documented in this encounter Progress Notes * Que Evans MD - 01/08/2020 9:00 AM EDT Images from the original note were not included. Radiation Oncology Prostate Cancer Telephone Consult Note Que Evans MD, MS [facility] [phone] TELE-CONSULTATION DESCRIPTION Based on the recommendations from the [facility] in the setting of the COVID19 pandemic, [...] : 1945 REFERRING PROVIDER: Alfredo Montoya DO [address] [place] [address] REASON FOR CONSULTATION : Cancer Staging Malignant [...] Prior consultations / recommendations: Dr Thomas - [facility] - 12/01/19 - options of , RP, RT reviewed. Patient interested in learning more about RT. Referral placed. PSA History: 11/03/19 - 12.9 Pathology Results / Location: TRUS Bx 11/23/19 ([facility]) - Gl 4+3 x 1 - Left Gl 3+4 x 3 - Bilat Gl 3+3 x 2 - Bilat Pertinent Imaging Studies: TRUS 11/23/19 - 46 cc gland Prior to starting today's phone consultation, I informed Narcisa that this does constitute a billablevisit, and that [facility] would be submitting a claim to his [...] 2012 [address] is approximate. [address] [facility] Dr Ko ??? PROSTATE BIOPSY 11/23/2019 CONTRAINDICATIONS [...] options, especially the surgical approach by Dr. Tohmas, so we spent the remainder of the [...] with all forms of radiotherapy. In the custodial, I explained there is an approximately 2% [...] candidate for any currently open trials at [facility]. On balance, Narcisa wishes to review [...] EDT Office Visit Radiation Oncology at [address] [phone] Taya De La Vega PA [facility] [place] [address] 11/13/2024 2:00 PM EDT Office Visit Hematology/Oncology at [address] [phone] Kirt Kennedy MD [facility] DR [place] [address] Alem Lazaro APRN [address] [place] [address] DR HEMATOLOGY [place] [address] documented as of this encounter Visit Diagnoses Diagnosis Malignant neoplasm of prostate documented in this encounter Care Teams Roofer Helper Vinyl Coating Relationship Specialty Start Date End Date Alfredo Montoya DO [address] [place] [address] PCP - General Internal Medicine 12/04/19 04/27/23 documented as of this encounter
--- OUTSIDE RECORDS SUMMARY | 2024-07-08 01:34 | XMS_ITS | Encounter Summary ---
Author Organization [facility] [place] [address] Care Team Providers Care Bartender Manager Name Role Phone Alfredo Montoya DO Primary Care Provider [phone] Encounter Details Date Type Department Care Team (Late st Contact Info) Description 02/29/2020 10:30 AM EDT Office Visit Radiation Oncology at [address] [place] [address] Que Evans MD [address] [place] [address] [place] [address] Malignant neoplasm of prostate Social [...] 02/29/20 Que Evans MD, MS Radiation Oncology [facility] [phone] (paging switch operator) Pager #[phone] PATIENT IDENTIFICATION Name Narcisa Eduardo Date of 1945 PCP Alfredo Montoya, Referring MD (if different) Dr. Martha Montoya (ID) 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, Gl [...] EDT Office Visit Radiation Oncology at [address] [phone] Taya De La Vega PA [facility] DR [place] [address] 11/13/2024 2:00 PM EDT Office Visit Hematology/Oncology at [address] [phone] Kirt Kennedy MD [facility] DR [place] [address] Alem Lazaro APRN [address] [place] [address] DR HEMATOLOGY AND ONCOLOGY [place], [place] [phone] documented as of this encounter Visit Diagnoses Diagnosis Malignant neoplasm of prostate documented in this encounter Care Teams Bartender Manager Relationship Specialty Start Date End Date Alfredo Montoya DO [address] [place] [id number] PCP - General Internal Medicine 12/04/19 04/27/23 documented as of this encounter
--- OUTSIDE RECORDS SUMMARY | 2024-07-08 01:34 | XMS_ITS | Encounter Summary ---
Author Organization [facility] Address [facility] [place] [address] Care Team Providers Care Truck Driver Instructor Name Role Phone Unknown Primary Care Provider Unavailabl e Encounter Details Date Type Department Care Team (Late st Contact Info) Description 03/06/2015 Orders [place] [address] Tavo Dumont MD [facility] [place] [address] Social History Tobacco Use Types Packs/Day Years [...] EDT Office Visit Radiation Oncology at [address] [phone] Taya De La Vega PA [facility] DR [place] [address] 11/13/2024 2:00 PM EDT Office Visit Hematology/Oncology at [address] [phone] Kirt Kennedy MD [facility] DR [place] [address] Alem Lazaro APRN [address] [place] [address] DR [place] [address] documented as of this encounter Procedures Procedure [...] is a Non-reportable exam Tavo Dumont MD [facility] FILM LIBRARY ORD ERABLES documented in this encounter Visit Diagnoses Not on filedocumented in this encounter Care Teams Truck Driver Instructor Relationship Specialty Start Date End Date Unknown None PCP - General 07/15/10 03/17/15 documented as of this encounter
--- OUTSIDE RECORDS SUMMARY | 2024-07-08 01:34 | XMS_ITS | Encounter Summary ---
Author Organization [facility]ly [facility] [place] [address] Care Team Providers Care Missing Persons Investigator Name Role Phone Naty Robles MD Primary Care Provider [phone] Encounter Details Date Type Department Care Team (Latest Contact Info) Description 03/18/2015 1:30 PM EDT - 03/18/2015 11:59 PM EDT Hospital [place] [phone] CLINIC, Alicia Reich MD [facility] [place] [address] Discharge Disposition: Home Social History Tobacco Use [...] Solis RN - 03/18/2015 3:58 PM EDT [facility] Vascular and Interventional Radiology Biopsy Discharge [...] be reported to you by your primary medicare contact specialist or the clinician who ordered the biopsy. [...] is during regular office hours, please call [phone]. If it is after regular office hours, or on weekends or holidays, please call [phone] and ask to speak to the Manager Solar automotive internet sales consultant for Interventional Radiology. x You have received [...] on file. PCP NATY ROBLES MD (General) [phone] Date/Time of call: March 19, 2015/9:53 AM [...] of : 1945 AGE 69 y.o. Address: [address] [place] [phone] (home) Mobile: No relevant phone numbers on [...] informed this patient that they require a auto crane driver to be present and in the building to drive them home after this procedure. In the absence of a auto crane driver, IR will not be able to [...] EDT Office Visit Radiation Oncology at [address] [phone] Taya De La Vega PA [facility] [place] [address] 11/13/2024 2:00 PM EDT Office Visit Hematology/Oncology at [address] [phone] Kirt Kennedy MD [facility] [place] [address] Alem Lazaro APRN [address] [place] [address] DR HEMATOLOGY [place] [address] documented as of this encounter Procedures Procedure Name Priority Date/Time Associated Diagnosis Comments NON-HEARING AID DISPENSER FLOW CYTOMETRY REPORT Routine 03/18/2015 4:23 PM EDT NON-HEARING AID DISPENSER FINAL REPORT Routine 03/18/2015 4:[address] GUIDED BIOPSY LYMPH NODE HEAD/NECK Routine 03/18/2015 3:45 PM EDT CYTOPATHOLOGY NON-GYNECOLOGICAL Routine 03/18/2015 2:18 PM EDT IMMUNOPHENOTYPING FLOW CYTOMETRY (BLOOD) Routine 03/18/2015 2:17 PM EDT documented in this encounter Results * Non-HEARING AID DISPENSER Flow Cytometry Report (03/18/2015 4:23 PM EDT) Non-HEARING AID DISPENSER Flow Cytometry Report ? [facility] ? Provider: ?? ALICIA DUMONT ?Pt. Name: ?? EVERT, GALINA ? Acc #: ?[id number] ? Pt. ? Col Date: ?? 03/18/2015 ? /Sex: ?1945,(69 years),Male ? Rec Date: ?? 03/18/2015 ? LOC: ?3ZC ? ANALYTICAL CELL PATHOLOGY ? ---Clinical Information--- ? 69 yo male with lymphadenopathy. ? ---Preparation--- ? FCM: [id number] ? [id number] ? ---Markers--- ? Cells for immunophenotypic analysis [...] ? the Clinical Flow Cytometry Laboratory at [facility]- ? [facility] ? Provider: ?? ALICAI DUMONT ?Pt. Name: ?? GALINA LOYD ? Acc #: ?[id number] ? Pt. ? Col Date: ?? 03/18/2015 ? /Sex: ?1945,(69 years),Male ? Rec Date: ?? 03/18/2015 ? LOC: ?3ZC ? ANALYTICAL CELL PATHOLOGY ? [facility]. It has not been cleared or approved [...] MD PATHOLOGY/CYTOLOGY O THALIA HAFSA BARDALES * Non-Irrigator Head Final Report (03/18/2015 4:23 PM EDT) Diagnosis Discussion [id number] ? Location: [facility] The signing pathologist has (i) examined the relevant preparation(s) for the specimen(s) and (ii) rendered or confirmed the diagnosis(es). . ? Pathology Flow Cytometry Report Clinical Information 69 yo male with lymphadenopathy. Preparation FCM: [id number] Markers Cells for immunophenotypic analysis were derived [...] CD10+ B-cell population identified (see Comment). 03/19/15 [facility] 03/20/15 Verified by: ? BHASKAR ENNIS ?Hematopathologist [...] by the Clinical Flow Cytometry Laboratory at [facility]. It has not been cleared or [...] high complexity clinical laboratory testing. ? Pathology Non-Irrigator Head Cytology Final Report Clinical Information Specimen Source : Lymph node (CT-guided needle core biopsy and touch imprint cytology - assisted) Site: Lymph node . Clinical Information Clinical History/Impression: Smoker with periaortic and iliac lymph nodes. ? path Please send results/report to: Dr Je Durham [facility] Gross Description: Received in 50 mL [...] BCL6 ? Ki67 03/20/2015 4:41 PM EDT [facility] Misc. FNA 03/18/2015 4:23 PM EDT 03/18/2015 4:23 PM EDT Alicia Dumont MD PATHOLOGY/CYTOLOGY O RDERABLES Performing Organization Address City/State/[facility] Co in Phone Number [facility] [address] * CT Biopsy-Lymph Node (03/18/2015 3:45 PM [...] MD PATHOLOGY/CYTOLOGY O RDERABLES Performing Organization Address [facility] Co de Phone Number [facility] * Immunophenotyping Flow Cytometry (03/18/2015 2:17 PM EDT) Immunophenotyping Flow See Comment [facility] Comment: When completed by the Pathologist, the Flow Cytometry Report ([id number]) will display under the Pathology Results section within eDH. Specimen of unknown material (specimen) Other / Unknown 03/18/2015 2:17 PM EDT 03/18/2015 5:29 PM EDT Narrative Resulting Agency Comment Spec In Lab Rosales Rodriguez MD HEMATOLOGY ORDERABLE S Performing Organization Address [facility] Co de Phone Number [facility] documented in this encounter Visit Diagnoses [...] mg documented in this encounter Care Teams Missing Persons Investigator Relationship Specialty Start Date End Date Naty Robles MD [address] [place] [address] [place] [address] PCP - General 03/18/15 08/22/19 documented as of this encounter
--- OUTSIDE RECORDS SUMMARY | 2024-07-08 01:34 | XMS_ITS | Encounter Summary ---
Author Organization [facility] [place] [address] Care Team Providers Care Executive Recruiter Name Role Phone Alfredo Montoya DO Primary Care Provider [phone] Encounter Details Date Type Department Care Team (Late Contact Info) Description 01/10/2020 Telephone Radiation Oncology at [address] [phone] Noelle Ramirez RN Social History [...] PM EDT Radiation Oncology Nurse Telephone Note [facility] [place] [place] Patient called clinic stating that he [...] EDT Office Visit Radiation Oncology at [address] [phone] Taya De La Vega PA [facility] DR [place] [address] 11/13/2024 2:00 PM EDT Office Visit Hematology/Oncology at [address] [phone] Kirt Kennedy MD [facility] DR [place] [address] Alem Lazaro APRN [address] [place] [address] DR HEMATOLOGY AND ONCOLOGY [place], [place] [address] documented as of this encounter Visit Diagnoses Not on filedocumented in this encounter Care Teams Executive Recruiter Relationship Specialty Start Date End Date Alfredo Montoya DO [address] [place] [id number] PCP - General Internal Medicine 12/04/19 04/27/23 documented as of this encounter
--- OUTSIDE RECORDS SUMMARY | 2024-07-08 01:34 | XMS_ITS | Encounter Summary ---
Author Organization [facility] [place] [address] Care Team Providers Care Job Cost Estimator Name Role Phone Alfredo Montoya DO Primary Care Provider [phone] Encounter Details Date Type Department Care Team (Late st Contact Info) Description 02/13/2020 Telephone Radiation Oncology at [address] [phone] Noelle Ramirez RN Social History [...] Post-Procedure Phone Note Name: Narcisa Eduardo A#: [id number] Telephone #: Procedure: Placement of Gold Coil [...] any questions for me. Section Radiation Oncology [facility] documented in this encounter Plan of Treatment Upcoming Encounters Date Type Department Care Team (Late st Contact Info) Description 11/09/2024 10:30 AM EDT Office Visit Radiation Oncology at [address] [phone] Taya De La Vega PA [facility] DR HEMATOLOGY [place] [address] 11/13/2024 2:00 PM EDT Office Visit Hematology/Oncology at [address] [phone] Kirt Kennedy MD [facility] DR HEMATOLOGY [place] [address] Alem Lazaro APRN [address] [place] [address] DR HEMATOLOGY AND ONCOLOGY [place], [place] [address] documented as of this encounter Visit Diagnoses Not on filedocumented in this encounter Care Teams Job Cost Estimator Relationship Specialty Start Date End Date Alfredo Montoya DO [address] [place] [address] PCP - General Internal Medicine 12/04/19 04/27/23 documented as of this encounter
--- OUTSIDE RECORDS SUMMARY | 2024-07-08 01:34 | XMS_ITS | Encounter Summary ---
Author Organization [facility] Address [facility] [place] [address] Care Team Providers Care Production Worker Name Role Phone Naty Robles MD Primary Care Provider [phone] Reason for Visit * Reason Comments Advice Only Encounter Details Date Type Department Care Team (Late st Contact Info) Description 04/03/2015 2:00 PM EDT Office Visit [place] [phone] Eileen Cheung MD [facility] DR [place] [address] Follicular lymphoma Discharge Disposition: Home Social History [...] - 04/03/2015 2:20 PM EDT Hematology Clinic [facility] [place] [address] NEW PATIENT EVALUATION PROBLEM LIST: Patient Active [...] in consultaion from Dr. Je Durham at [facility]. The patient presented with what was thought to be a right flank mass to Dr. Je Durham in [place]. He denies any B symptoms. It was [...] yrs and daughter Bertha. Enjoys working in [employer]. Reads a lot. Splits wood with spltter occasionally. 3 children - 43, 40 35 yo. 1 granddaughter 23 and one grandson six mos. 2 great grandchildren age 7 &2. 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 Worked for [employer]. Was in [employer] [facility] and at [employer] with [employer]. + [employer] exposure. ETOH: 4-6 beers per day. Drinks [...] This note was written or modified using Nadanu voice recognition software. The final note was screened for mistakes. Please excuse any remaining errors. total time: time in counselling: Copy NATY ROBLES MD (General) documented in this encounter Plan of Treatment Upcoming Encounters Date Type Department Care Team (Late st Contact Info) Description 11/09/2024 10:30 AM EDT Office Visit Radiation Oncology at [address] [phone] Taya De La Vega PA [facility] DR [place] [address] 11/13/2024 2:00 PM EDT Office Visit Hematology/Oncology at [address] [phone] Kirt Kennedy MD [facility] DR [place] [address] Alem Lazaro APRN [address] [place] [address] [place] [address] documented as of this encounter [...] EDT Follicular lymphoma HIV SCREEN, 4TH GENERATION ([facility]/CGP/APD/NLH) STAT 04/03/2015 3:27 PM EDT Follicular lymphoma [...] Thank you for referring this patient to [facility] PET Center. This report was reviewed by Daren Davis at 04/15/2015 5:54 PM Film and interpretation reviewed by the attending Narrative 04/15/2015 5:59 PM EDT EXAMINATION: PET/CT STANDARD (Skull base to Mid-thigh) CLINICAL HISTORY: staging lymphoma TECHNIQUE: Procedure: Following IV injection of 78-hzdged-7-deoxyglucose (FDG) a standard uptake of approximately 60 [...] lymphoma TECHNIQUE: Procedure: Following IV injection of 20-mzsagf-6-deoxyglucose(FDG) a standard uptake of approximately 60 minutes, [...] Thank you for referring this patient to [facility] PET Center. This report was reviewed by [...] MD HEMATOLOGY ORDER YESSY Performing Organization Address City/[facility]/ZIP Co de Phone Number CERBRADY PINONENNIUM * [...] Immunoglobulins, Quantitative (04/03/2015 3:27 PM EDT) Pathologist [facility] Immunoglobulin G 949 700 - 1,600 mg/dL CERNER MILLENNIUM IgA 231 70 - 400 mg/dL [facility] MILLEN[facility] IgM 158 40 - 230 mg/dL [facility] MILLENNIUM Blood specimen (specimen) 04/03/2015 3:27 PM EDT 04/03/2015 3:43 PM EDT Narrative Resulting Agency Comment Spec In Lab Eileen Cheung MD CHEMISTRY ORDERA [employer] Performing Organization Address [facility] de Phone Number HAFSA PINONENNIUM * Protein Electrophoresis, serum (04/03/2015 3:27 PM EDT) Pathologist [facility] Total Prot Electrophoresis 6.6 6.1 - 8.0 [...] In Lab Eileen Cheung MD CHEMISTRY ORDERA [employer] Performing Organization Address [facility] Co de Phone Number HAFSA MCPHERSONIUM * HIV Screen, 4th Generation (04/03/2015 3:27 PM EDT) Pathologist [facility] HIV Ab/Ag Screen Negative Negative [facility] MILLENNIUM Comment: This 4th Generation HIV [...] MD CHEMISTRY ORDERA BLES Performing Organization Address [facility] de Phone Number [facility] * Hepatitis C Antibody (04/03/2015 3:27 PM EDT) Hepatitis C Antibody Negative Negative [facility] Blood specimen (specimen) 04/03/2015 3:27 PM EDT 04/03/2015 3:43 PM EDT Narrative Resulting Agency Comment Spec In Lab Eileen Cheung MD CHEMISTRY ORDERA BLES Performing Organization Address [facility] de Phone Number [facility] * Hepatitis B Surface Antigen (04/03/2015 3:27 PM EDT) Hepatitis B Surface Antigen Negative Negative [facility] Blood specimen (specimen) 04/03/2015 3:27 PM EDT 04/03/2015 3:43 PM EDT Narrative Resulting Agency Comment Spec In Lab Eileen Cheung MD CHEMISTRY ORDERA BLES Performing Organization Address [facility] de Phone Number [facility] * Hepatitis B Surface Antibody (04/03/2015 3:27 PM EDT) Hepatitis B Surface Antibody Negative [facility] Comment: Expected Results: Vaccinated: Positive Unvaccinated: Negative [...] MD CHEMISTRY ORDERA BLEHusam Performing Organization Address [facility] Co de Phone Number [facility] * Hepatitis B Core Antibody, Total (04/03/2015 3:27 PM EDT) Hepatitis B Core Antibody Negative Negative [facility] Blood specimen (specimen) 04/03/2015 3:27 PM EDT 04/03/2015 3:43 PM EDT Narrative Resulting Agency Comment Spec In Lab Eileen Cheung MD CHEMISTRY ORDERA BLEHusam Performing Organization Address [facility] de Phone Number [facility] * Lactate Dehydrogenase (04/03/2015 3:27 PM EDT) Lactate Dehydrogenase 160 110 - 220 unit/L [facility] Blood specimen (specimen) 04/03/2015 3:27 PM EDT 04/03/2015 3:43 PM EDT Narrative Resulting Agency Comment Spec In Lab Eileen Cheung MD CHEMISTRY ORDERA BLES Performing Organization Address [facility] de Phone Number [facility] * (ABNORMAL) Comprehensive metabolic panel (non-fasting) (04/03/2015 3:27 PM EDT) Glucose 117 65 - 199 mg/dL [facility] Comment:Diabetes: >=200 mg/d L plus symptoms Blood Urea Nitrogen 9(L) 10 - 20 mg/dL [facility] MILLENNIUM Creatinine 0.93 0.80 - 1.50 mg/dL [facility] MILLENNIUM Comment: Please note that the pediatric reference intervals supplied above were not validated at [facility]. Results from pediatric patients should be interpreted in conjunction to the patient's age, height and muscle mass. Sodium 142 135 - 145 mmol/L [facility] Potassium 3.9 3.5 - 5.0 mmol/L [facility] Comment: Please note: ??Patients with [...] the following links into your internet browser. [email or web address] Blood specimen (specimen) 04/03/2015 3:27 PM EDT 04/03/2015 3:43 PM EDT Narrative Resulting Agency Comment Spec In Lab Eileen Cheung MD CHEMISTRY ORDERA TERRI [facility] Organization Address City/State/ZIP Co de Phone Number CERNER MILLENNIUM documented in this encounter Visit Diagnoses Diagnosis Follicular lymphoma Nodular lymphoma, unspecified site, extranodal and solid organ sites Follicular lymphoma Nodular lymphoma, unspecified site, extranodal and solid organ sites documented in this encounter Care Teams Production Worker Relationship Specialty Start Date End Date Naty Robles MD [address] [facility] [place] [address] PCP - General 03/18/15 08/22/19 documented as of this encounter
--- OUTSIDE RECORDS SUMMARY | 2024-07-08 01:34 | XMS_ITS | Encounter Summary ---
Author Organization [facility] [place] [address] Care Team Providers Care Kiln Charger Name Role Phone Alfredo Montoya DO Primary Care Provider [phone] Encounter Details Date Type Department Care Team (Late Contact Info) Description 02/29/2020 Telephone Radiation Oncology at [address] [phone] Yessi Lei Social History Tobacco [...] EDT Office Visit Radiation Oncology at [address] [phone] Taya De La Vega PA [facility] HEMATOLOGY [place] [address] 11/13/2024 2:00 PM EDT Office Visit Hematology/Oncology at [address] [phone] Kirt Kennedy MD [facility] HEMATOLOGY [place] [address] Alem Lazaro, [address] HEMATOLOGY [place] [address] documented as of this encounter Visit Diagnoses Not on filedocumented in this encounter Care Teams Kiln Charger Relationship Specialty Start Date End Date Alfredo Montoya DO [address] [place] [address] PCP - General Internal Medicine 12/04/19 04/27/23 documented as of this encounter
--- OUTSIDE RECORDS SUMMARY | 2024-07-08 01:34 | XMS_ITS | Encounter Summary ---
Author Organization [facility] [place] [address] Care Team Providers Care Motor Scooter Mechanic Name Role Phone Alfredo Montoya DO Primary Care Provider [phone] Encounter Details Date Type Department Care Team (Late st Contact Info) Description 01/31/2020 Telephone Radiation Oncology at [address] [phone] Noelle Ramirez RN Social History [...] Note [facility] [place] [place] Received telephone call from [place] PCP's office regarding Plavix management with upcoming [...] EDT Office Visit Radiation Oncology at [address] [phone] Taya De La Vega PA [facility] DR HEMATOLOGY [place] [address] 11/13/2024 2:00 PM EDT Office Visit Hematology/Oncology at [address] [phone] Kirt Kennedy MD [facility] DR HEMATOLOGY [place] [address] Alem Lazaro APRN [address] [place] [address] DR HEMATOLOGY AND ONCOLOGY [place], [place] [phone] documented as of this encounter Visit Diagnoses Not on filedocumented in this encounter Care Teams Motor Scooter Mechanic Relationship Specialty Start Date End Date Alfredo Montoya DO [address] [place] [address] PCP - General Internal Medicine 12/04/19 04/27/23 documented as of this encounter
--- OUTSIDE RECORDS SUMMARY | 2024-07-08 01:34 | XMS_ITS | Encounter Summary ---
Author Organization [facility] Address [facility] [place] [address] Care Team Providers Care Tank Officer Name Role Phone Alfredo Montoya DO Primary Care Provider [phone] Encounter Details Date Type Department Care Team (Late Contact Info) Description 12/07/2019 Telephone Radiation Oncology at [address] [phone] Meng Chauhan Social History Tobacco [...] EDT Office Visit Radiation Oncology at [address] [phone] Taya De La Vega PA [facility] [place] [address] 11/13/2024 2:00 PM EDT Office Visit Hematology/Oncology at [address] [phone] Kirt Kennedy MD [facility] DR [place] [address] Alem Lazaro APRN [address] [place] [address] DR HEMATOLOGY [place] [address] documented as of this encounter Visit Diagnoses Not on filedocumented in this encounter Care Teams Tank Officer Relationship Specialty Start Date End Date Alfredo Montoya DO [address] [place] [address] PCP - General Internal Medicine 12/04/19 04/27/23 documented as of this encounter
--- OUTSIDE RECORDS SUMMARY | 2024-07-08 01:34 | XMS_ITS | Encounter Summary ---
Author Organization [facility] Address [facility] [place] [address] Care Team Providers Care Resident Assistant Cna Name Role Phone Alfredo Montoya DO Primary Care Provider [phone] Encounter Details Date Type Department Care Team (Late st Contact Info) Description 02/02/2020 Refill Radiation Oncology at [address] [phone] Noelle Ramirez RN Malignant neoplasm [...] Time: 0900 Time of Procedure: 929 Location: [facility] Why gold coils? You and your [...] receiving medications ( dex and Levaquin) from [place]. Prescription for steroid: to prevent swelling at [...] earlier when we arranged for medications with [facility], but he now feels it may be helpful.This prescription was sent to [facility] 02/02/20. His will drive him. THE [...] other concerns. Future Appointments: ?? MRI at [facility] : You will receive separate instructions specifically from [facility] concerning your exact arrival time and what you need to do to prepare for this. Date: 02/13 at [facility] at 7:50 , per patient. ?? Your [...] restrictions with eating. How to reach us: [facility] [phone] For weekends and after hours: Call [facility] ask for the international account executive radiation oncologist documented in this encounter Plan of Treatment Upcoming Encounters Date Type Department Care Team (Late st Contact Info) Description 11/09/2024 10:30 AM EDT Office Visit Radiation Oncology at [address] [phone] Taya De La Vega PA [facility] DR [place] [address] 11/13/2024 2:00 PM EDT Office Visit Hematology/Oncology at [address] [phone] Kirt Kennedy MD [facility] DR [place] [address] Alem Lazaro APRN [address] [place] [address] DR HEMATOLOGY [place] [address] documented as of this encounter Visit Diagnoses Diagnosis Malignant neoplasm of prostate documented in this encounter Care Teams Resident Assistant Cna Relationship Specialty Start Date End Date Alfredo Montoya DO [address] [place] [address] PCP - General Internal Medicine 12/04/19 04/27/23 documented as of this encounter
--- OUTSIDE RECORDS SUMMARY | 2024-07-08 01:34 | XMS_ITS | Encounter Summary ---
Author Organization [facility] Address [facility] [place] [address] Care Team Providers Care Net Software Developer Name Role Phone Unknown Primary Care Provider Unavailabl e Encounter Details Date Type Department Care Team (Late st Contact Info) Description 03/07/2015 Orders [place] [phone] Tavo Dumont MD [facility] DR [place] [address] Social History Tobacco Use Types Packs/Day Years Used Date Smoking Tobacco: Never Assessed Sex and Gender Information Value Date Recorded Sex Assigned at Not on file Gender Identity Not on file Sexual Orientation Not on file documented as of this encounter Progress Notes * Tavo Dumont MD - 03/07/2015 9:16 AM EDT FOCUSED H&P and PRE-PROCEDURE VIR NOTE: Referring Physician: Je Durham ([facility]) Planned Procedure: Para-aortic node biopsy Procedure Indication: [...] History: Father : prostate ca Physical Exam: WYRH: T 36.1, P 78, BP 146/82 Pnding Labs: [facility] 03/05/15: Cr 0.[address]: [address] 03/06/15 [...] EDT Office Visit Radiation Oncology at [address] [phone] Taya De La Vega PA [facility] DR HEMATOLOGY [place] [address] 11/13/2024 2:00 PM EDT Office Visit Hematology/Oncology at [address] [phone] Kirt Kennedy MD [facility] DR HEMATOLOGY [place] [address] Alem Lazaro APRN [address] [place] [address] DR [place] [address] documented as of this encounter Visit Diagnoses Not on filedocumented in this encounter Care Teams Net Software Developer Relationship Specialty Start Date End Date Unknown None PCP - General 07/15/10 03/17/15 documented as of this encounter
--- OUTSIDE RECORDS SUMMARY | 2024-07-08 01:34 | XMS_ITS | Encounter Summary ---
Author Organization [facility] Address [facility] [place] [address] Care Team Providers Care Ground Defence Officer Name Role Phone Naty Robles MD Primary Care Provider [phone] Reason for Visit * Reason Comments Follow-up Encounter Details Date Type Department Care Team (Late st Contact Info) Description 04/22/2015 2:00 PM EDT Follow-Up Hematology [place] [phone] Eileen Teran MD [facility] [address] [place] [address] Follicular lymphoma Discharge Disposition: Home Social History [...] 04/22/2015 1:24 PM EDT . Hematology Clinic [facility] MARIA LUISA [place] [address] NEW PATIENT EVALUATION PROBLEM LIST: Patient Active [...] in consultaion from Dr. Je Durham at [facility]. The patient presented with what was thought to be a right flank mass to Dr. Je Durham in [place]. He denies any B symptoms. It was [...] &2. 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 Worked for [employer]. Was in [employer] and at [employer] with [employer]. + [employer] [place] exposure. ETOH: 4-6 beers per day. Drinks [...] area is 2.10 meters squared. GENERAL: Narcisa [place] appears well and is in no acute [...] lymphoma TECHNIQUE: Procedure: Following IV injection of 05-pfihkx-5-deoxyglucose (FDG) a standard uptake of approximately 60 [...] and indications for treatmetn. Pt pursuing [employer] [place] [facility] Reviewed renal lesion -will [...] This note was written or modified using [facility] voice recognition software. The final note was [...] EDT Office Visit Radiation Oncology at [address] [phone] Taya De La Vega PA [facility] DR [place] [address] 11/13/2024 2:00 PM EDT Office Visit Hematology/Oncology at [address] [phone] Kirt Kennedy MD [facility] [place] [address] Alem Lazaro APRN [address] [place] [address] HEMATOLOGY AND ONCOLOGY [place], [place] [phone] documented as of this encounter Visit Diagnoses Diagnosis Follicular lymphoma Nodular lymphoma, unspecified site, extranodal and solid organ sites documented in this encounter Care Teams Ground Defence Officer Relationship Specialty Start Date End Date Naty Robles MD [address] [facility] [place], [place] [address] PCP - General 03/18/15 08/22/19 documented as of this encounter
--- OUTSIDE RECORDS SUMMARY | 2024-07-08 01:34 | XMS_ITS | Encounter Summary ---
Author Organization [facility] Address [facility] [place] [address] Care Team Providers Care Building Service Worker Name Role Phone Robson Robles MD Primary Care Provider [phone] Encounter Details Date Type Department Care Team (Latest Contact Info) Description 12/11/2015 1:53 PM EDT - 12/11/2015 11:59 PM EDT [place] [phone] Discharge Disposition: Home Social History Tobacco Use [...] EDT Office Visit Radiation Oncology at [address] [phone] Taya De La Vega PA [facility] DR [place] [address] 11/13/2024 2:00 PM EDT Office Visit Hematology/Oncology at [address] [phone] Kirt Kennedy MD [facility] DR [place] [address] Alem Lazaro APRN [address] [place] [address] DR HEMATOLOGY [place] [address] documented as of this encounter Procedures Procedure Name Priority Date/Time Associated Diagnosis Comments IMMUNOPHENOTYPING FLOW CYTOMETRY (BLOOD) Routine 12/11/2015 1:27 PM EDT FLOW CYTOMETRY REPORT Routine 12/11/2015 1:27 PM EDT documented in this encounter Results * Flow Cytometry Report (12/11/2015 1:27 PM EDT) Flow Cytometry Report [id number] ?Location: [facility] The signing pathologist has (i) examined [...] polytypic expression of surface immunoglobulin light chain (Holt:Lambda ratio at 0.9). The T-cells are an admixture of CD4+ and CD8+ T lymphocytes (ratio of 1.3). No loss or atypical intensity distributions are seen for any alvarado T antigen (CD2, 3, 4+8, 5, 7). There is no increase in HQ85-tkwmshog/CD3-ne g NK cells. Flow analysis is an ancillary study. A definite diagnosis requires correlation with the morphologic features of this process and if necessary, correlation with other ancillary studies like immunohistochemistry , enzyme cytochemistry and/or cyto/molecular genetics. This test was developed and its performance characteristics determined by the Clinical Flow Cytometry Laboratory at [facility]. It has not been cleared or [...] complexity clinical laboratory testing. SPECIMEN PROCESSING [id number] Cells for immunophenotypic analysis were derived from [...] EDT Denise Stone MD PATHOLOGY/CYTOLOGY O RDERATERRI [facility] [place] [address] * Immunophenotyping Flow Cytometry (12/11/2015 1:27 PM EDT) Immunophenotyping Flow See Comment [facility] Comment: When completed by the Pathologist, the Flow Cytometry Report ([id number]) will display under the Pathology Results section within eDH. Specimen of unknown material (specimen) Other / Unknown 12/11/2015 1:27 PM EDT 12/12/2015 3:02 PM EDT Narrative Resulting Agency Comment Spec In Lab Denise Stone MD HEMATOLOGY ORDERABLE S [facility] [place] [address] documented in this encounter Visit Diagnoses Not on filedocumented in this encounter Care Teams Building Service Worker Relationship Specialty Start Date End Date Robson Robles MD [address] [facility] [place] [place] [address] PCP - General 03/18/15 08/22/19 documented as of this encounter
--- OUTSIDE RECORDS SUMMARY | 2024-07-08 01:34 | XMS_ITS | Encounter Summary ---
Author Organization [facility] [place] [address] Care Team Providers Care Casino Manager Name Role Phone Robson Robles MD Primary Care Provider [phone] Encounter Details Date Type Department Care Team (Late Contact Info) Description 03/08/2015 Orders Only Hematology/Oncology at [address] [phone] Al Mancilla MD [address] [place] [phone] Social History Tobacco Use Types Packs/Day Years [...] EDT Office Visit Radiation Oncology at [address] [phone] Taya De La Vega PA [facility] DR HEMATOLOGY [place] [address] 11/13/2024 2:00 PM EDT Office Visit Hematology/Oncology at [address] [phone] Kirt Kennedy MD [facility] DR HEMATOLOGY [place] [address] Alem Lazaro, SWEATBAND MAKER [address] [facility] [facility] [address] [place] [address] documented as of this encounter Procedures Procedure [...] is a Non-reportable exam Al Mancilla MD [facility] FILM LIBRARY ORD ERABLES documented in this encounter Visit Diagnoses Not on filedocumented in this encounter Care Teams Casino Manager Relationship Specialty Start Date End Date Robson Robles MD [address] [facility] [place], [place] [phone] PCP - General 03/18/15 08/22/19 documented as of this encounter
--- OUTSIDE RECORDS SUMMARY | 2024-07-08 01:34 | XMS_ITS | Encounter Summary ---
Author Organization [place] [address] Care Team Providers Care Global Sourcing Manager Name Role Phone Alfredo Montoya DO Primary Care Provider [phone] Encounter Details Date Type Department Care Team (Late st Contact Info) Description 02/09/2020 9:30 AM EDT Procedure visit Radiation Oncology at [address] [phone] Que Evans MD [address] [place] [address] [place] [address] Malignant neoplasm of prostate Social [...] You will receive separate instructions specifically from [facility] concerning your exact arrival time and what you need to do to prepare for this. Date: 02/13 at [facility] at 7:50 , per patient. ? Your [...] with eating. ?? How to reach us: [facility] [phone] For weekends and after hours: Call [facility] ask for the construction rigger radiation oncologist documented in this encounter Progress [...] He comes to clinic accompanied by a trailer tank truck driver. [yes, stopped Plavix 5 days ago [...] needed for mild discomfort. He has the [facility] phone number and verbalized understanding to ask for the construction rigger radiation oncologist if he needs to after [...] SpaceOAR system was then prepared as per elementary school teacher's aide's recommendations, using sterile technique. Lidocaine was then [...] was properly positioned, two 5mm gold coils (Heroic) were separately placed within the right lobe, [...] EDT Office Visit Radiation Oncology at [address] [phone] Taya De La Vega PA [facility] DR HEMATOLOGY [place] [address] 11/13/2024 2:00 PM EDT Office Visit Hematology/Oncology at [address] [phone] Kirt Kennedy MD [facility] DR HEMATOLOGY [place] [address] Alem Lazaro APRN [address] [place] [address] DR HEMATOLOGY [place] [address] documented as of this encounter Visit Diagnoses Diagnosis Malignant neoplasm of prostate documented in this encounter Care Teams Global Sourcing Manager Relationship Specialty Start Date End Date Alfredo Montoya DO [address] [place] [address] PCP - General Internal Medicine 12/04/19 04/27/23 documented as of this encounter
--- OUTSIDE RECORDS SUMMARY | 2024-07-08 01:34 | XMS_ITS | Encounter Summary ---
Author Organization [facility] [place] [address] Care Team Providers Care Press Writer Name Role Phone Alfredo Montoya DO Primary Care Provider [phone] Encounter Details Date Type Department Care Team (Late Contact Info) Description 01/11/2020 Telephone Radiation Oncology at [address] [phone] Feliciano Almaraz Social History Tobacco [...] EDT Office Visit Radiation Oncology at [address] [phone] Taya De La Vega PA [facility] [place] [address] 11/13/2024 2:00 PM EDT Office Visit Hematology/Oncology at [address] [phone] Kirt Kennedy MD [facility] DR HEMATOLOGY [place] [address] Alem Lazaro APRN [address] [place] [address] DR [place]EMATOLOGY [place] [address] documented as of this encounter Visit Diagnoses Not on filedocumented in this encounter Care Teams Press Writer Relationship Specialty Start Date End Date Alfredo Montoya DO [address] [place] [address] PCP - General Internal Medicine 12/04/19 04/27/23 documented as of this encounter
--- OUTSIDE RECORDS SUMMARY | 2024-07-08 01:34 | XMS_ITS | Encounter Summary ---
Author Organization [facility] Address [facility] [place] [address] Care Team Providers Care Car Clerk Pullman Name Role Phone Robson Robles MD Primary Care Provider [phone] Encounter Details Date Type Department Care Team (Latest Contact Info) Description 12/09/2015 1:53 PM EDT - 12/09/2015 11:59 PM EDT Hospital [place] [phone] Discharge Disposition: Home Social History Tobacco Use [...] EDT Office Visit Radiation Oncology at [address] [phone] Taya De La Vega PA [facility] DR [place] [address] 11/13/2024 2:00 PM EDT Office Visit Hematology/Oncology at [address] [phone] Kirt Kennedy MD [facility] DR [place] [address] Alem Lazaro APRN [address] [place] [address] DR [place] [address] documented as of this encounter Procedures Procedure Name Priority Date/Time Associated Diagnosis Comments FLOW CYTOMETRY REPORT Routine 12/09/2015 3:11 PM EDT IMMUNOPHENOTYPING FLOW CYTOMETRY (BLOOD) Routine 12/09/2015 11:35 AM EDT documented in this encounter Results * Flow Cytometry Report (12/09/2015 3:11 PM EDT) Pathologist [facility] Flow Cytometry Report [id number] ?[facility] The signing pathologist has (i) [...] by the Clinical Flow Cytometry Laboratory at [facility]. It has not been cleared or approved [...] high complexity clinical laboratory testing. SPECIMEN PROCESSING [id number] Cells for immunophenotypic analysis were derived from inquinal lymph node biopsy. CD45 vs side scatter gating was utilized to identify a lymphoid analysis region that comprises approximately 85-88% of all cells. The following markers were assessed: CD3, CD5, CD10, CD19, CD45, CD56, kappa light chain, and lambda light chain. CLINICAL INFORMATION HX of [facility] 12/09/2015 3:11 PM EDT Anais Escalante MD PATHOLOGY/CYTOLOGY O RDERABLES Performing Organization Address City/[facility]/ZIP Co de Phone Number [facility] [place] [address] * Immunophenotyping Flow Cytometry (12/09/2015 11:35 AM EDT) Immunophenotyping Flow See Comment [facility] Comment: When completed by the Pathologist, the Flow Cytometry Report ([id number]) will display under the Pathology Results section within eDH. Specimen of unknown material (specimen) Other / Unknown 12/09/2015 11:35 AM EDT 12/09/2015 2:43 PM EDT Narrative Resulting Agency Comment Spec In Lab Anais Escalante MD HEMATOLOGY ORDERABLE S Performing Organization Address City/[facility]/ZIP Co de Phone Number [facility] [place] [address] documented in this encounter Visit Diagnoses Not on filedocumented in this encounter Care Teams Car Clerk Pullman Relationship Specialty Start Date End Date Robson Robles MD [phone] [facility] [place] [address] PCP - General 03/18/15 08/22/19 documented as of this encounter
--- OUTSIDE RECORDS SUMMARY | 2024-07-08 01:34 | XMS_ITS | Encounter Summary ---
Author Organization [facility] Address [facility] [place] [address] Care Team Providers Care Tennis Net Maker Name Role Phone Alfredo Montoya DO Primary Care Provider [phone] Encounter Details Date Type Department Care Team (Late Contact Info) Description 01/05/2020 Orders Only Hematology/Oncology at [address] [phone] Noelle Ramirez RN Social [...] EDT Office Visit Radiation Oncology at [address] [phone] Taya De La Vega PA [facility] DR [place] [address] 11/13/2024 2:00 PM EDT Office Visit Hematology/Oncology at [address] [phone] Kirt Kennedy MD [facility] DR [place] [address] Alem Lazaro APRN [address] [place] [address] DR [place] [address] documented as of this encounter Visit Diagnoses Not on filedocumented in this encounter Care Teams Tennis Net Maker Relationship Specialty Start Date End Date Alfredo Montoya DO [address] [place] [address] PCP - General Internal Medicine 12/04/19 04/27/23 documented as of this encounter
--- OUTSIDE RECORDS SUMMARY | 2024-07-08 01:34 | XMS_ITS | Encounter Summary ---
Author Organization [facility] [place] [address] Care Team Providers Care Emu Farm Worker Name Role Phone Alfredo Montoya DO Primary Care Provider [phone] Reason for Visit * Reason Onset Date Comments Other 02/13/2020 [facility] social work assessment Encounter Details Date Type Department Care Team (Late st Contact Info) Description 02/13/2020 Telephone Hematology/Oncology at [address] [phone] Joana Roberts MSW OFFICE OF CARE MANAGEMENT Other ([facility] social work assessment) Social History Tobacco Use [...] requested a copy for his medical record. [place] Status: Pt is a . Utilization of [...] at this time. Plan: Informed pt of E LEARNING DESIGNER availability and contact information as working remotely. Will follow for support and resources. documented in this encounter Plan of Treatment Upcoming Encounters Date Type Department Care Team (Late st Contact Info) Description 11/09/2024 10:30 AM EDT Office Visit Radiation Oncology at [address] [phone] Taya De La Vega PA [facility] DR [place] [address] 11/13/2024 2:00 PM EDT Office Visit Hematology/Oncology at [address] [phone] Kirt Kennedy MD [facility] DR [place] [address] Alem Lazaro APRN [address] [place] [address] DR HEMATOLOGY AND ONCOLOGY [place], [place] [phone] documented as of this encounter Visit Diagnoses Not on filedocumented in this encounter Care Teams Emu Farm Worker Relationship Specialty Start Date End Date Alfredo Montoya DO [address] [place] [address] PCP - General Internal Medicine 12/04/19 04/27/23 documented as of this encounter
--- OUTSIDE RECORDS SUMMARY | 2024-07-08 01:34 | XMS_ITS | Encounter Summary ---
Author Organization [facility] [place] [address] Care Team Providers Care Gre Instructor Name Role Phone Alfredo Montoya DO Primary Care Provider [phone] Encounter Details Date Type Department Care Team (Late st Contact Info) Description 02/12/2020 Telephone Radiation Oncology at [address] [phone] Krystle Becerra RN Social History [...] EDT Office Visit Radiation Oncology at [address] [phone] Taya De La Vega PA [facility] DR [place] [address] 11/13/2024 2:00 PM EDT Office Visit Hematology/Oncology at [address] [phone] Kirt Kennedy MD [facility] DR [place] [address] Alem Lazaro APRN [address] [place] [address] DR HEMATOLOGY AND ONCOLOGY [place], [place] [phone] documented as of this encounter Visit Diagnoses Not on filedocumented in this encounter Care Teams Gre Instructor Relationship Specialty Start Date End Date Alfredo Montoya DO [address] [place] [address] PCP - General Internal Medicine 12/04/19 04/27/23 documented as of this encounter
--- OUTSIDE RECORDS SUMMARY | 2024-07-08 01:34 | XMS_ITS | Encounter Summary ---
Author Organization [facility] Address [facility] [place] [address] Care Team Providers Care Dermatology Physician Assistant Name Role Phone Alfredo Montoya DO Primary Care Provider [phone] Encounter Details Date Type Department Care Team (Late st Contact Info) Description 01/18/2020 Notes Only Radiation Oncology at [address] [phone] Noelle Ramirez, RN Social History [...] soon Arrival Time: Time of Procedure: Location: [facility] Why gold coils? You and your doctor [...] your PCP ( Dr Montoya at the [facility]) celso white[place] Plavix managment Prescriptions to get filled per Dr Evans :at the [place] Prescription for steroid: to prevent swelling at [...] any other concerns. How to reach us: [facility] [phone] For weekends and after hours: Call [facility] ask for the induction heat treater radiation oncologist documented in this encounter Plan of Treatment Upcoming Encounters Date Type Department Care Team (Late st Contact Info) Description 11/09/2024 10:30 AM EDT Office Visit Radiation Oncology at [address] [phone] Taya De La Vega PA [facility] DR [place] [address] 11/13/2024 2:00 PM EDT Office Visit Hematology/Oncology at [address] [phone] Kirt Kennedy MD [facility] DR [place] [address] Alem Lazaro APRN [address] [place] [address] DR HEMATOLOGY AND ONCOLOGY [place], [place] [address] documented as of this encounter Visit Diagnoses Diagnosis Malignant neoplasm of prostate documented in this encounter Care Teams Dermatology Physician Assistant Relationship Specialty Start Date End Date Alfredo Montoya DO [address] [place] [address] PCP - General Internal Medicine 12/04/19 04/27/23 documented as of this encounter
--- NOTE | 2024-07-08 02:31 | W.PC.ACHO ---
Registration Status: Primary Language: Preferred Language: ED Information & Data Chief Complaint Urinary 07/07/24 22:22 Triage Note Pt arrives via EMS c/o AMS x 07/07/24 22:11 2 days d/t chronic UTI's. Pt arrives w indwelling catheter w cloudy yellow urine. Pt c/o pain on his cocccyx area where there is a pre-existing pressure ulcer. BG [id number]. No other complaints at this time. 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 Major depressive disorder, single episode Leakage of other urinary catheter, initial encounter Family history of breast cancer Essential (primary) hypertension Delirium due to known physiological condition Contact with and (suspected) exposure to other hazardous substances Bradycardia, unspecified Closed fracture of left proximal humerus (01/10/23) CVA (cerebral vascular accident) Lymphoma Hypertension (Last Reviewed 07/07/24 @ 23:24 by Robson Ochoa) History of craniotomy Most Recent Vital Signs Temperature 36.3 C L 07/07/24 22:11 Temperature Source Temporal Artery Scan 07/07/24 22:11 Pulse 61 07/08/24 01:01 Respiratory Rate 21 07/08/24 01:34 Respiratory Effort Normal 07/07/24 22:14 Blood Pressure 95/60 L 07/08/24 01:01 Blood Pressure Position Supine 07/07/24 22:11 Pulse Oximetry 87 L 07/08/24 01:34 Oxygen Delivery Method Room Air 07/07/24 22:11 Oxygen Flow Rate 0 07/07/24 22:11 Pain Level 3 07/07/24 22:11 Allergies cefazolin Allergy (Severe, Verified 07/07/24 22:13) Anaphylaxis preoperative CV collapse, possible causative agent iohexol (From Omnipaque) Allergy (Unknown, Verified 07/07/24 22:13) Unknown Iodinated Contrast Media Allergy (Verified 07/07/24 22:13) Skin Rash Rocuronium Allergy (Severe, Uncoded 07/07/24 22:13) Anaphylaxis Potential allergy, to be reviewed. Anaphylaxis during anesthetic event. IV IV Catheter Type [Left Wrist] Saline Lock IV Catheter Gauge [Left Wrist] 18 Diet Orders Category Date Time Status Heart Healthy Eating [DIET] Nutrition 07/08/24 Breakfast Active Diagnostics 07/08/24 07/07/24 07/07/24 Range/Units 05:35 23:48 23:02 WBC Pending (4.4-10.8) 10^3/uL RBC Pending (4.36-5.78) 10^6/uL Hgb Pending (13.5-17.5) g/dL Hct Pending (40.0-50.0) % MCV Pending (80-95) fL MCH Pending (27.0-33.0) pg MCHC Pending (32.0-36.0) % RDW Pending (11.8-14.1) % Plt Count Pending (130-400) 10^3/uL MPV Pending (8.0-11.0) fL Immature Gran % % Neutrophils % % Lymphocytes % % Monocytes % % Eosinophils % % Basophils % % Nucleated RBC % (0.0-0.3) % Absolute Neutrophils (1.2-6.7) 10^3/uL Absolute Lymphocytes (1.2-3.4) 10^3/uL Absolute Monocytes (0.1-0.8) 10^3/uL Absolute Eosinophils (0.0-0.7) 10^3/uL Absolute Basophils (0.0-0.2) 10^3/uL VBG Lactate (0.6-1.4) mmol/L Sodium Pending (136-145) mmol/L Potassium Pending (3.5-5.1) mmol/L Chloride Pending (98-107) mmol/L Carbon Dioxide Pending (21.0-32.0) mmol/L Anion Gap Pending (3-11) mmol/L BUN Pending (7-18) mg/dL Creatinine Pending (0.70-1.30) mg/dL Est GFR (CKD-EPI 2020) Pending (mL/min/1.73m2) Glucose Pending (74-106) mg/dL Calcium Pending (8.5-10.1) mg/dL Magnesium Pending (1.8-2.4) mg/dL Total Bilirubin Pending (0.2-1.0) mg/dL AST Pending (15-37) U/L ALT Pending (16-63) U/L Alkaline Phosphatase Pending (46-116) U/L Total Protein Pending (6.4-8.2) g/dL Albumin Pending (3.4-5.0) g/dL Urine Color Yellow Urine Clarity Clear Urine pH 6.5 Ur Specific [place] 1.020 Urine Protein 100 H Urine Ketones Negative Urine Blood Moderate H Urine Nitrite Positive H Urine Bilirubin Negative Urine Urobilinogen 0.2 Ur Leukocyte Esterase Large H Urine RBC 10-20 H Urine WBC >50 H (0-5) HPF Ur Epithelial Cells Rare Urine Crystals Negative Urine Bacteria Few Urine Casts Negative (Negative) LPF Urine Mucus Negative Ur Culture Indicated? No Urine Glucose Negative COVID-19 Source Pending SARS-CoV-2 (PCR) Pending Influenza Type A (PCR) Pending Influenza Type B (PCR) Pending RSV (PCR) Pending 07/07/24 07/07/24 Range/Units 22:25 22:18 WBC 13.85 H (4.4-10.8) 10^3/uL RBC 4.29 L (4.36-5.78) 10^6/uL Hgb 12.8 L (13.5-17.5) g/dL Hct 39.1 L (40.0-50.0) % MCV 91 (80-95) fL MCH 29.8 (27.0-33.0) pg MCHC 32.7 (32.0-36.0) % RDW 16.3 H (11.8-14.1) % Plt Count 142 (130-400) 10^3/uL MPV 9.2 (8.0-11.0) fL Immature Gran % 0.5 % Neutrophils % 88.5 % Lymphocytes % 4.8 % Monocytes % 5.9 % Eosinophils % 0.1 % Basophils % 0.2 % Nucleated RBC % 0.0 (0.0-0.3) % Absolute Neutrophils 12.26 H (1.2-6.7) 10^3/uL Absolute Lymphocytes 0.66 L (1.2-3.4) 10^3/uL Absolute Monocytes 0.82 H (0.1-0.8) 10^3/uL Absolute Eosinophils 0.01 (0.0-0.7) 10^3/uL Absolute Basophils 0.03 (0.0-0.2) 10^3/uL VBG Lactate 1.5 H (0.6-1.4) mmol/L Sodium 140 (136-145) mmol/L Potassium 3.3 L (3.5-5.1) mmol/L Chloride 99 (98-107) mmol/L Carbon Dioxide 31.7 (21.0-32.0) mmol/L Anion Gap 9.3 (3-11) mmol/L BUN 29 H (7-18) mg/dL Creatinine 1.5 H (0.70-1.30) mg/dL Est GFR (CKD-EPI 2020) 47.36 (mL/min/1.73m2) Glucose 138 H (74-106) mg/dL Calcium 9.8 (8.5-10.1) mg/dL Magnesium 1.9 (1.8-2.4) mg/dL Total Bilirubin 1.07 H (0.2-1.0) mg/dL AST 18 (15-37) U/L ALT 18 (16-63) U/L Alkaline Phosphatase 150 H (46-116) U/L Total Protein 7.1 (6.4-8.2) g/dL Albumin 2.7 L (3.4-5.0) g/dL Urine Color Cancelled Urine Clarity Cancelled Urine pH Cancelled Ur Specific [place] Cancelled Urine Protein Cancelled Urine Ketones Cancelled Urine Blood Cancelled Urine Nitrite Cancelled Urine Bilirubin Cancelled Urine Urobilinogen Cancelled Ur Leukocyte Esterase Cancelled Urine RBC Not Applicable Urine WBC >50 H (0-5) HPF Ur Epithelial Cells Not Applicable Urine Crystals Not Applicable Urine Bacteria Not Applicable Urine Casts (Negative) LPF Urine Mucus Not Applicable Ur Culture Indicated? C&S Done As Ordered Urine Glucose Cancelled COVID-19 Source SARS-CoV-2 (PCR) Influenza Type A (PCR) Influenza Type B (PCR) RSV (PCR) 07/07/24 22:53 Blood Culture - Pending Blood 07/07/24 22:18 Urine Culture - Pending Urine - Not Specified 07/07/24 22:34 Blood Culture - Pending Blood Intake and Output - 24 Hour Total 07/07/24 22:02 thru 07/08/24 00:06 Intake Total 200 Balance 200 Weight 47.6 kg Intake: IV 200 Falls Risk Assessment History of Falls Previous History 07/07/24 22:14 Contributing Factors Confusion,Impairments, 07/07/24 22:14 Incontinence Ambulatory Aids Uses ambulatory device + 07/07/24 22:14 Tubes/Lines With any additional score 07/07/24 22:14 Gait Evaluation W/any additional score 07/07/24 22:14 Cognition Cognitive impairment 07/07/24 22:14 Fall Total Score 109 07/07/24 22:14 Level of Risk Maximum Risk 07/07/24 22:14 Problems (Last Reviewed 07/07/24 @ 23:24 by Robson Ochoa) Sacral decubitus ulcer (Chronic) Urinary tract infection (Acute) Sepsis (Acute) 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 Information / Comments: Report received from: jocelin chapman
[2024-07-08] MEDS: Acetaminophen 500 MG TAB 1000 MG PO (02:34)
[2024-07-08] MEDS: POTASSIUM CHLORIDE/0.9% NACL 1,000 ML 150 MEQ IV ×3 (02:35→18:41)
[2024-07-08] MEDS: Nicotine 21 MG/24 HR PATCH TD (02:35)
[2024-07-08] MEDS: methylPREDNISolone 4 MG TAB 32 MG PO ×2 (02:35→10:08)
[2024-07-08] MEDS: Lacosamide 100 MG TAB 200 MG PO ×3 (03:45→20:27)
[2024-07-08 04:25] LABS: COVID-19 PCR Negative (Negative); Influenza A PCR Negative (Negative); Influenza B PCR Negative (Negative); RSV PCR Negative (Negative)
[2024-07-08 04:29] LABS: Source Nasopharynx
--- NOTE | 2024-07-08 08:39 | INITIAL_ITS ---
Date of service: 07/08/24 Time of Service: 08:40 Care Management Initial Assmt Initial Assessment Reason for Hospitalization: Sepsis, UTI, decubitus ulcer Functional Status/Living Situation Patient Presentation: Narcisa is sleeping and appears comfortatble. Per MD, Narcisa is labile at times. Per RN, family would like to be present for the Palliative consult. CM will follow. Town of Residence: [place] Resides with: Spouse ( Kinue) Significant Other/Family: Local Natural Supports: and daughter Bertha Employment Status: Retired ([place]) Instrumental Activities of Daily Living (ADLs): Requires support (With ADL/IADL's) Medications Medication Management: No Issues/Barriers identified Physical Functioning/Mobility Assistive Device: Wheeled Walker Advance Directives Advance Directives: Do you have an Advance Directive: N 12/25/20 11:29 AD On File at [facility]: N 01/10/13 07:10 Date Asked 07/07/24 07/07/24 22:14 AD Date Reviewed COLST On File at [facility] No 01/10/23 10:37 COLST Date Scanned Code Status Resuscitation Status DNI Portal Pt does not currently have a portal and education provided: Yes Insurance Coverage/Financial Issues Insurance: [place] Financial Issues: None identified. Care Team Visit Care Team Role Provider Type Elyse Gutierrez Primary Care Provider NON-[facility] STAFF PHYSICIAN Charleen Thorne MD Emergency Provider [facility] STAFF PHYSICIAN Robson Ochoa Admit Provider NON-[facility] STAFF PHYSICIAN Attending Provider Discharge Potential Discharge Needs: Consult Consult Services Needed: Nutrition, Palliative and Speech, PCP F/U Appt and Other ( ) Anticipated Barriers to Discharge: Medical Status Patient/Family Education Needs: Review discharge instructions, discuss Ask Me Three Transportation: Private vehicle Plan: [facility], approaching hospice, Palliative consult is pending (family want to be present.) Anticipate, Narcisa will discharge home with resumption of [facility] services and home supports when medically cleared for discharge. Patient will need to follow up with [place] providers and Palliative Care. [facility] All Active Problems Sacral decubitus ulcer (Chronic) Urinary tract infection (Acute) Sepsis (Acute) Advanced care planning/counseling discussion (Acute) Palliative care encounter (Acute) Seizure disorder as sequela of cerebrovascular accident (Chronic) s/p CVA/hemorrhage, h/o breakthrough in setting of UTI/fever Abnormal weight loss (Acute) Recurrent UTI (Acute) History of follicular lymphoma (Chronic) Prostate cancer (Chronic) S/P Radiation therapy. Currently under surveillance with very low but detectible PSA (05/2024). Dr. Evans. 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 Major depressive disorder, single episode Leakage of other urinary catheter, initial encounter Family history of breast cancer Essential (primary) hypertension Delirium due to known physiological condition Contact with and (suspected) exposure to other hazardous substances Bradycardia, unspecified Closed fracture of left proximal humerus (01/10/23) CVA (cerebral vascular accident) Lymphoma Hypertension Surgical History History of craniotomy for brain bleed Family History Father Personal history of malignant neoplasm prostate cancer Social History Smoking/Tobacco Use Status: Current every day Tobacco Type: cigarettes Smoking packs per day: 1 Smoking cigarettes per day: 20.0 Smoking risk assessment performed?: Yes Alcohol Intake: former Drug use: Never Substance use type: does not use Housing: house Current gender identity: male Do you feel safe at home: Yes Do you feel safe in your relationship?: Yes SDOH(Care Management) Screening Will the Patient Participate in the Screening?: Yes Do you worry about having a steady place to live?: no Problems where you live: no known problems In the past 12 months, have you had to go without electric, gas, oil or water in your home?: no Have you or anyone in your house had to go without enough food to eat?: no Has lack of transportation kept you from medical appointments or from doing things needed for daily living?: no Has anyone in your support network made you feel unsafe for any reason?: no
[2024-07-08 10:03] LABS: HCT 34.7 % (40.0-50.0); HGB 11.1 g/dL (13.5-17.5); MCH 29.7 pg (27.0-33.0); MCV 93 fL (80-95); Platelet Count 118 10^3/uL (130-400); RBC 3.74 10^6/uL (4.36-5.78); RDW 16.1 % (11.8-14.1); RDW-SD 55.6 fL; WBC 11.22 10^3/uL (4.4-10.8)
[2024-07-08] MEDS: CIPROFLOXACIN 400 MG/200 ML BAG 200 MG IVPB ×2 (10:05→21:32)
[2024-07-08] MEDS: Senna TAB 1 TAB PO ×2 (10:07→20:28)
[2024-07-08] MEDS: Enoxaparin 30 MG/0.3 ML SYR SC (10:08)
[2024-07-08] MEDS: Cholecalciferol (Vitamin D3) 1,000 UNIT TAB 1000 UNITS PO (10:08)
[2024-07-08] MEDS: Potassium Chloride 10 MEQ TABCR PO (10:08)
[2024-07-08] MEDS: Tamsulosin 0.4 MG CAPCR PO ×2 (10:08→20:27)
[2024-07-08] MEDS: Docusate Sodium 100 MG CAP PO ×2 (10:08→20:27)
[2024-07-08 10:14] LABS: ALT 18 U/L (16-63); AST 20 U/L (15-37); Albumin 2.3 g/dL (3.4-5.0); Alkaline Phosphatase 129 U/L (46-116); Anion Gap 4.8 mmol/L (3-11); BUN 27 mg/dL (7-18); Bilirubin, Total 0.76 mg/dL (0.2-1.0); CO2 31.2 mmol/L (21.0-32.0); CREATININE 1.5 mg/dL (0.70-1.30); Calcium 8.9 mg/dL (8.5-10.1); Chloride 102 mmol/L (98-107); Estimated GFR 47.36 (mL/min/1.73m2); Glucose 205 mg/dL (74-106); Magnesium 1.8 mg/dL (1.8-2.4); Potassium 3.6 mmol/L (3.5-5.1); Sodium 138 mmol/L (136-145); Total Protein 6.3 g/dL (6.4-8.2)
[2024-07-08] MEDS: Albuterol/Ipratropium 3 ML UPD VIAL UPD ×3 (11:07→23:50)
[2024-07-08] MEDS: LINEZOLID 600 MG/300 ML BAG 300 MG IVPB ×2 (13:19→23:58)
--- NOTE | 2024-07-08 15:34 | PGE_ITS ---
Date of Service Date of service: 07/08/24 Time of Service: 15:34 Assessment and Plan Assessment and plan (1) Sepsis: Start date: 07/07/24 Status: Acute Assessment and plan: This is a 78-year-old [place] gentleman reporting to the ED because of increasing confusion from baseline with vascular dementia chronically status post CVAs on antiseizure medicine. He does have recurrent UTI which is the probable source of sepsis with no fever but elevated WBC and tachycardia. He also has borderline hypotension with increase in his baseline creatinine. To be slightly dehydrated. He also has hypokalemia. He has intermittent hypomagnesemia but this is stable and normal. He will be admitted for IV antibiotic therapy for UTI and fluid resuscitation with normal saline and potassium supplement at 150 cc/h ordered closely for fluid overload. He does expect to return home to his family care and is approaching hospice with palliative care consultation placed during his hospital stay and also being [facility] the [facility]. Patient is a DNI. 07/08/24 pt does appear to be improving in regards to vitals/labs/mentation. Cw zyvox Qualifiers: Sepsis type: methicillin resistant Staphylococcus aureus Sepsis acute organ dysfunction status: with acute organ dysfunction Severe sepsis acute organ dysfunction type: acute renal failure Acute renal failure type: with other specified pathological lesion Severe sepsis shock status: without septic shock Qualified Code(s): A41.02 - Sepsis due to Methicillin resistant Staphylococcus aureus; R65.20 - Severe sepsis without septic shock; N17.8 - Other acute kidney failure (2) Urinary tract infection: Start date: 07/07/24 Status: Acute Assessment and plan: Patient appears to have acute UTI with last pathogen being MRSA. Patient is on intravenous Cipro for milligrams every 12 hours with linezolid 600 mg twice a day. Follow-up urine cultures and change antibiotics coverage accordingly as switched to oral therapy. Continue indwelling Mckeon catheter which was exchanged in the ED. 07/08/24 As above zyvox Qualifiers: Urinary tract infection type: acute cystitis Hematuria presence: with hematuria Qualified Code(s): N30.01 - Acute cystitis with hematuria (3) Sacral decubitus ulcer: Status: Chronic Assessment and plan: Continue wound care while hospitalized and continue with [facility]. Patient is basically bedridden at this time. Qualifiers: Pressure injury stage: stage 3 Qualified Code(s): L89.153 - Pressure ulcer of sacral region, stage 3 (4) Hypertension: Assessment and plan: Not on outpatient medical therapy at this time with weight loss and decreased activity, low systolic blood pressures on IV fluid resuscitation. Qualifiers: Hypertension type: primary hypertension Qualified Code(s): I10 - Essential (primary) hypertension (5) History of follicular lymphoma: Status: Chronic Assessment and plan: Not active as well as treatment and surveyed annually. Recently placed on prednisone and this most likely was for his respiratory status being a daily smoker with COPD now on chronic inhalers. Will continue methylprednisolone and could call [facility] to check whether this is actually needed with patient initially not initiating but prescribed this. (6) Prostate cancer: Status: Chronic Assessment and plan: Status post radiation therapy on annual surveillance with chronic bladder outlet obstruction and indwelling Mckeon catheter. Mckeon catheter exchanged and UTI being treated. (7) Seizure disorder as sequela of cerebrovascular accident: Status: Chronic Assessment and plan: Continue antiseizure medications. Subjective Subjective Interval history since last seen: pt seen and examined in his room. Pt without significant complaint this am Exam Narrative Exam Narrative: General: Patient appears older than stated age, thin almost cachectic, alert and oriented at least to person and place and in no acute distress. He has slow dysarthric speech. HEENT: Normocephalic, eyes with pupils equal and reactive to light symmetrically, extraocular move intact and sclera anicteric. Oropharynx with dry mucosa and poor dentition with missing teeth and carious teeth. Neck: Supple without JVD. Back: Kyphotic without CVA tenderness. Sacral area is bandaged with dry bandage and not examined with known stage II-III decubitus sacral ulcer cared for by home health [facility] the [facility]. Lungs: Bronchovesicular breath sound diffusely with no focalizing rales or rhonchi. No increased expiratory phase or expiratory wheeze. Fair aeration. Heart: Distant heart sounds with regular rate and rhythm and no appreciable murmur or gallop. Abdomen: Scaphoid and nontender to palpation without palpable hepatosplenomegaly. Soft palpation. No guarding or rebound. Bowel sounds positive all quadrants. Genitalia/rectal: Exam deferred. He does have Mckeon catheter with opaque almost milky urine draining. Skin: Pale, warm and dry with increased tenting and decreased turgor, rough texture over sun exposed areas with actinic changes. No bruising. Extremities: Without clubbing, cyanosis or grossly pitting edema. Muscle wasting diffusely. Fair capillary refill. Neuro: Cranial nerves II through XII grossly intact, dysarthric speech and patient hard of hearing. No focalizing motor deficits except for slight 's including face. Tone normal. No tremors. DTRs physiologic and symmetrical with no Babinski's. Psych: Normal affect and mood with slowed speech. No abnormal thought processes. Remote and recent memory appear to be grossly intact with some short-term memory deficits. Objective Last Vital Signs Temp 36.7 C 07/08/24 07:05 Pulse 51 L 07/08/24 13:00 Resp 14 07/08/24 13:00 BP 105/57 L 07/08/24 13:00 Pulse Ox 98 07/08/24 13:00 Laboratory Results - last 24 hr 07/07/24 07/07/24 07/07/24 22:18 22:25 23:02 WBC 13.85 H RBC 4.29 L Hgb 12.8 L Hct 39.1 L MCV 91 MCH 29.8 MCHC 32.7 RDW 16.3 H Plt Count 142 MPV 9.2 Immature Gran % 0.5 Neutrophils % 88.5 Lymphocytes % 4.8 Monocytes % 5.9 Eosinophils % 0.1 Basophils % 0.2 Nucleated RBC % 0.0 Absolute Neutrophils 12.26 H Absolute Lymphocytes 0.66 L Absolute Monocytes 0.82 H Absolute Eosinophils 0.01 Absolute Basophils 0.03 VBG Lactate 1.5 H Sodium 140 Potassium 3.3 L Chloride 99 Carbon Dioxide 31.7 Anion Gap 9.3 BUN 29 H Creatinine 1.5 H Est GFR (CKD-EPI 2020) 47.36 Glucose 138 H Calcium 9.8 Magnesium 1.9 Total Bilirubin 1.07 H AST 18 ALT 18 Alkaline Phosphatase 150 H Total Protein 7.1 Albumin 2.7 L Urine Color Cancelled Yellow Urine Clarity Cancelled Clear Urine pH Cancelled 6.5 Ur Specific [place] Cancelled 1.020 Urine Protein Cancelled 100 H Urine Ketones Cancelled Negative Urine Blood Cancelled Moderate H Urine Nitrite Cancelled Positive H Urine Bilirubin Cancelled Negative Urine Urobilinogen Cancelled 0.2 Ur Leukocyte Esterase Cancelled Large H Urine RBC Not Applicable 10-20 H Urine WBC >50 H >50 H Ur Epithelial Cells Not Applicable Rare Urine Crystals Not Applicable Negative Urine Bacteria Not Applicable Few Urine Casts Negative Urine Mucus Not Applicable Negative Ur Culture Indicated? C&S Done As Ordered No Urine Glucose Cancelled Negative COVID-19 Source SARS-CoV-2 (PCR) Influenza Type A (PCR) Influenza Type B (PCR) RSV (PCR) 07/08/24 07/08/24 03:00 09:45 WBC 11.22 H RBC 3.74 L Hgb 11.1 L Hct 34.7 L MCV 93 MCH 29.7 MCHC 32.0 RDW 16.1 H Plt Count 118 L MPV 9.0 Immature Gran % Neutrophils % Lymphocytes % Monocytes % Eosinophils % Basophils % Nucleated RBC % Absolute Neutrophils Absolute Lymphocytes Absolute Monocytes Absolute Eosinophils Absolute Basophils VBG Lactate Sodium 138 Potassium 3.6 Chloride 102 Carbon Dioxide 31.2 Anion Gap 4.8 BUN 27 H Creatinine 1.5 H Est GFR (CKD-EPI 2020) 47.36 Glucose 205 H Calcium 8.9 Magnesium 1.8 Total Bilirubin 0.76 AST 20 ALT 18 Alkaline Phosphatase 129 H Total Protein 6.3 L Albumin 2.3 L Urine Color Urine Clarity Urine pH Ur Specific [place] Urine Protein Urine Ketones Urine Blood Urine Nitrite Urine Bilirubin Urine Urobilinogen Ur Leukocyte Esterase Urine RBC Urine WBC Ur Epithelial Cells Urine Crystals Urine Bacteria Urine Casts Urine Mucus Ur Culture Indicated? Urine Glucose COVID-19 Source Nasopharynx SARS-CoV-2 (PCR) Negative Influenza Type A (PCR) Negative Influenza Type B (PCR) Negative RSV (PCR) Negative Time Spent with Patient Time Spent with Patient: 35-49 minutes Time was spent: preparing to see the patient(eg.review tests), obtaining and/or reviewing separately otained hiistory, ordering medications,tests, procedures, referring, communicating with other health human services care specialist, indepentently interpreting results, counseling the patient and care coordination
[2024-07-08] MEDS: Atorvastatin 40 MG TAB 80 MG PO (20:27)
[2024-07-08] MEDS: Melatonin 3 MG TAB PO (20:28)
[2024-07-09] VITALS (44 sets, daily range): BP systolic 90–144; BP diastolic 44–130; PULSE 43–98; RESP 13–26; TEMP 36.3–37.1; O2SAT 94–98
[2024-07-09] MEDS: POTASSIUM CHLORIDE/0.9% NACL 1,000 ML 150 MEQ IV ×3 (03:21→18:02)
[2024-07-09 06:15] LABS: HCT 30.6 % (40.0-50.0); HGB 9.9 g/dL (13.5-17.5); MCH 29.8 pg (27.0-33.0); MCHC 32.4 % (32.0-36.0); MCV 92 fL (80-95); MPV 9.5 fL (8.0-11.0); Platelet Count 128 10^3/uL (130-400); RBC 3.32 10^6/uL (4.36-5.78); RDW 15.6 % (11.8-14.1); RDW-SD 52.5 fL; WBC 10.06 10^3/uL (4.4-10.8)
[2024-07-09 06:42] LABS: ALT 24 U/L (16-63); AST 29 U/L (15-37); Albumin 1.9 g/dL (3.4-5.0); Alkaline Phosphatase 108 U/L (46-116); Anion Gap 6.3 mmol/L (3-11); BUN 19 mg/dL (7-18); Bilirubin, Total 0.29 mg/dL (0.2-1.0); CO2 29.7 mmol/L (21.0-32.0); Calcium 9.1 mg/dL (8.5-10.1); Chloride 107 mmol/L (98-107); Estimated GFR 77.04 (mL/min/1.73m2); Glucose 157 mg/dL (74-106); Potassium 4.1 mmol/L (3.5-5.1); Sodium 143 mmol/L (136-145); Total Protein 5.4 g/dL (6.4-8.2)
[2024-07-09 07:16] LABS: Procalcitonin 0.24 ng/mL
[2024-07-09 08:37] LABS: Lactate 1.7 mmol/L (0.6-1.4)
[2024-07-09] MEDS: Tamsulosin 0.4 MG CAPCR PO ×2 (09:06→20:01)
[2024-07-09] MEDS: Potassium Chloride 10 MEQ TABCR PO (09:06)
[2024-07-09] MEDS: Senna TAB 1 TAB PO ×2 (09:06→20:02)
[2024-07-09] MEDS: Lactobacillus Acidophilus CAP 1 CAP PO (09:06)
[2024-07-09] MEDS: Docusate Sodium 100 MG CAP PO (09:06)
[2024-07-09] MEDS: Enoxaparin 40 MG/0.4 ML SYR SC (09:06)
[2024-07-09] MEDS: Lacosamide 100 MG TAB 200 MG PO (09:06)
[2024-07-09] MEDS: LINEZOLID 600 MG/300 ML BAG 300 MG IVPB ×2 (13:11→23:22)
[2024-07-09] MEDS: Albuterol/Ipratropium 3 ML UPD VIAL UPD (13:22)
--- NOTE | 2024-07-09 13:57 | W.PM.PROGNOT ---
Date of Service Date of service: 07/09/24 Time of Service: 13:57 Assessment and Plan Assessment and plan (1) Sepsis: Start date: 07/07/24 Status: Acute Assessment and plan: This is a 78-year-old [place] gentleman reporting to the ED because of increasing confusion from baseline with vascular dementia chronically status post CVAs on antiseizure medicine. He does have recurrent UTI which is the probable source of sepsis with no fever but elevated WBC and tachycardia. He also has borderline hypotension with increase in his baseline creatinine. To be slightly dehydrated. He also has hypokalemia. He has intermittent hypomagnesemia but this is stable and normal. He will be admitted for IV antibiotic therapy for UTI and fluid resuscitation with normal saline and potassium supplement at 150 cc/h ordered closely for fluid overload. He does expect to return home to his family care and is approaching hospice with palliative care consultation placed during his hospital stay and also [facility]. Patient is a DNI. 07/08/24 pt does appear to be improving in regards to vitals/labs/mentation 07/09/2024 Pt will continue with current plan. Awaiting final urine/blood cultures to deescalate therapy Qualifiers: Sepsis type: methicillin resistant Staphylococcus aureus Sepsis acute organ dysfunction status: with acute organ dysfunction Severe sepsis acute organ dysfunction type: acute renal failure Acute renal failure type: with other specified pathological lesion Severe sepsis shock status: without septic shock Qualified Code(s): A41.02 - Sepsis due to Methicillin resistant Staphylococcus aureus; R65.20 - Severe sepsis without septic shock; N17.8 - Other acute kidney failure (2) Urinary tract infection: Start date: 07/07/24 Status: Acute Assessment and plan: Patient appears to have acute UTI with last pathogen being MRSA. Patient is on intravenous Cipro for milligrams every 12 hours with linezolid 600 mg twice a day. Follow-up urine cultures and change antibiotics coverage accordingly as switched to oral therapy. Continue indwelling Mckeon catheter which was exchanged in the ED. 07/08/24 As above zyvox Qualifiers: Urinary tract infection type: acute cystitis Hematuria presence: with hematuria Qualified Code(s): N30.01 - Acute cystitis with hematuria (3) Sacral decubitus ulcer: Status: Chronic Assessment and plan: Continue wound care while hospitalized and [facility] with [facility]. Patient is basically bedridden at this time. Qualifiers: Pressure injury stage: stage 3 Qualified Code(s): L89.153 - Pressure ulcer of sacral region, stage 3 (4) Hypertension: Assessment and plan: Not on outpatient medical therapy at this time with weight loss and decreased activity, low systolic blood pressures on IV fluid resuscitation. BP remains fairly soft today, but stable. Qualifiers: Hypertension type: primary hypertension Qualified Code(s): I10 - Essential (primary) hypertension (5) History of follicular lymphoma: Status: Chronic Assessment and plan: Not active as well as treatment and surveyed annually. Recently placed on prednisone and this most likely was for his respiratory status being a daily smoker with COPD now on chronic inhalers. Will continue methylprednisolone and could call [facility] to check whether this is actually needed with patient initially not initiating but prescribed this. (6) Prostate cancer: Status: Chronic Assessment and plan: Status post radiation therapy on annual surveillance with chronic bladder outlet obstruction and indwelling Mckeon catheter. Mckeon catheter exchanged and UTI being treated. (7) Seizure disorder as sequela of cerebrovascular accident: Status: Chronic Assessment and plan: Continue antiseizure medications. Subjective Subjective Interval history since last seen: Pt seen and examined in his room. POC d/w beside nurse as well as at multidisciplinary rounds. Patient states that he did feel better this morning. Nursing staff report patient with varying levels of consciousness throughout the day and night. Exam Narrative Exam Narrative: General: Patient appears older than stated age, thin almost cachectic, alert and oriented at least to person and place and in no acute distress. He has slow dysarthric speech. HEENT: Normocephalic, eyes with pupils equal and reactive to light symmetrically, extraocular move intact and sclera anicteric. Oropharynx with dry mucosa and poor dentition with missing teeth and carious teeth. Neck: Supple without JVD. Back: Kyphotic without CVA tenderness. Sacral area is bandaged with dry bandage and not examined with known stage II-III decubitus sacral ulcer cared for by home health [facility] the [facility]. Lungs: Bronchovesicular breath sound diffusely with no focalizing rales or rhonchi. No increased expiratory phase or expiratory wheeze. Fair aeration. Heart: Distant heart sounds with regular rate and rhythm and no appreciable murmur or gallop. Abdomen: Scaphoid and nontender to palpation without palpable hepatosplenomegaly. Soft palpation. No guarding or rebound. Bowel sounds positive all quadrants. Genitalia/rectal: Mckeon catheter remains in place. Urine output is noted to be dark in color but I do not see any josemanuel pus at this time. Skin: Pale, warm and dry with increased tenting and decreased turgor, rough texture over sun exposed areas with actinic changes. No bruising. Extremities: Without clubbing, cyanosis or grossly pitting edema. Muscle wasting diffusely. Fair capillary refill. Neuro: Cranial nerves II through XII grossly intact, dysarthric speech and patient hard of hearing. No focalizing motor deficits except for slight 's including face. Tone normal. No tremors. DTRs physiologic and symmetrical with no Babinski's. Psych: Normal affect and mood with slowed speech. No abnormal thought processes. Remote and recent memory appear to be grossly intact with some short-term memory deficits. Objective Last Vital Signs Temp 36.8 C 07/09/24 07:50 Pulse 52 L 07/09/24 13:28 Resp 20 07/09/24 13:28 BP 105/67 07/09/24 10:01 Pulse Ox 96 07/09/24 13:28 Laboratory Results - last 24 hr 07/09/24 07/09/24 05:35 08:28 WBC 10.06 RBC 3.32 L Hgb 9.9 L Hct 30.6 L MCV 92 MCH 29.8 MCHC 32.4 RDW 15.6 H Plt Count 128 L MPV 9.5 VBG Lactate 1.7 H Sodium 143 Potassium 4.1 Chloride 107 Carbon Dioxide 29.7 Anion Gap 6.3 BUN 19 H Creatinine 1.0 Est GFR (CKD-EPI 2020) 77.04 Glucose 157 H Calcium 9.1 Total Bilirubin 0.29 AST 29 ALT 24 Alkaline Phosphatase 108 Total Protein 5.4 L Albumin 1.9 L Procalcitonin 0.24 Time Spent with Patient Time Spent with Patient: 25-34 minutes Time was spent: preparing to see the patient(eg.review tests), obtaining and/or reviewing separately otained hiistory, ordering medications,tests, procedures, referring, communicating with other health transitions rn care coordinator, indepentently interpreting results, counseling the patient and care coordination
[2024-07-09] MEDS: Atorvastatin 40 MG TAB 80 MG PO (20:01)
[2024-07-10] VITALS (22 sets, daily range): BP systolic 116–145; BP diastolic 57–86; PULSE 42–86; RESP 14–38; TEMP 36.5–36.6; O2SAT 91–97
[2024-07-10] MEDS: Normal Saline Flush 10 ML SYR IVP ×4 (00:37→23:27)
[2024-07-10 06:07] LABS: HCT 31.6 % (40.0-50.0); MCH 29.5 pg (27.0-33.0); MCHC 31.6 % (32.0-36.0); MCV 93 fL (80-95); MPV 9.2 fL (8.0-11.0); Platelet Count 132 10^3/uL (130-400); RBC 3.39 10^6/uL (4.36-5.78); RDW 15.9 % (11.8-14.1); RDW-SD 54.1 fL; WBC 8.84 10^3/uL (4.4-10.8)
[2024-07-10 06:44] LABS: ALT 43 U/L (16-63); AST 58 U/L (15-37); Alkaline Phosphatase 109 U/L (46-116); Anion Gap 6.6 mmol/L (3-11); BUN 10 mg/dL (7-18); Bilirubin, Total 0.36 mg/dL (0.2-1.0); CO2 26.4 mmol/L (21.0-32.0); CREATININE 0.9 mg/dL (0.70-1.30); Chloride 109 mmol/L (98-107); Estimated GFR 87.42 (mL/min/1.73m2); Glucose 76 mg/dL (74-106); Sodium 142 mmol/L (136-145); Total Protein 5.4 g/dL (6.4-8.2)
--- NOTE | 2024-07-10 08:33 | CMPROGNOTE_ITS ---
Date of service: 07/10/24 Time of Service: 08:34 Care Management Progress Note Progress Note Text Progress Note Text: Narcisa was lying in bed when CM met with him today. When CM asked if he lives in [place], with his , he replied, I used to. When asked where he lives now, he replied, in [facility]. Narcisa was not really able to answer any of CMs questions Discharge Potential Discharge Needs: Consult Consult Services Needed: Nutrition, Palliative and Speech Anticipated Barriers to Discharge: Medical Status Patient/Family Education Needs: Review discharge instructions, discuss Ask Me Three Transportation: Private vehicle Plan: [facility], approaching hospice, Palliative consult is pending (family want to be present), and is expected to occur tomorrow afternoon. Anticipate Narcisa will discharge home with resumption of [facility] services and home supports when medically cleared for discharge. Patient will need to follow up with [facility] providers and Palliative Care. CM will continue to follow SDOH(Care Management) Screening Will the Patient Participate in the Screening?: Yes Do you worry about having a steady place to live?: no Problems where you live: no known problems In the past 12 months, have you had to go without electric, gas, oil or water in your home?: no Have you or anyone in your house had to go without enough food to eat?: no Has lack of transportation kept you from medical appointments or from doing things needed for daily living?: no Has anyone in your support network made you feel unsafe for any reason?: no Anticipated HH Services Anticipated HH Services at Discharge [facility], [place].
--- NOTE | 2024-07-10 09:51 | W.PM.PROGNOT ---
Date of Service Date of service: 07/10/24 Time of Service: 09:52 Assessment and Plan Assessment and plan (1) Sepsis: Start date: 07/07/24 Status: Acute Assessment and plan: This is a 78-year-old [place] gentleman reporting to the ED because of increasing confusion from baseline with vascular dementia chronically status post CVAs on antiseizure medicine. He does have recurrent UTI which is the probable source of sepsis with no fever but elevated WBC and tachycardia. He also has borderline hypotension with increase in his baseline creatinine. To be slightly dehydrated. He also has hypokalemia. He has intermittent hypomagnesemia but this is stable and normal. He will be admitted for IV antibiotic therapy for UTI and fluid resuscitation with normal saline and potassium supplement at 150 cc/h ordered closely for fluid overload. He does expect to return home to his family care and is approaching hospice with palliative care consultation placed during his hospital stay and also being [facility]. Patient is a DNI. 07/08/24 pt does appear to be improving in regards to vitals/labs/mentation 07/09/2024 Pt will continue with current plan. Awaiting final urine/blood cultures to deescalate therapy 07/10/2024 Patient's vital signs and labs are trending in the correct direction. He we do not have urine cultures as well as blood cultures resulted but no sensitivities available at this time. Will continue with current Zyvox as it appears to be responding appropriately Qualifiers: Acute renal failure type: with other specified pathological lesion Sepsis acute organ dysfunction status: with acute organ dysfunction Sepsis type: methicillin resistant Staphylococcus aureus Severe sepsis acute organ dysfunction type: acute renal failure Severe sepsis shock status: without septic shock Qualified Code(s): A41.02 - Sepsis due to Methicillin resistant Staphylococcus aureus; R65.20 - Severe sepsis without septic shock; N17.8 - Other acute kidney failure (2) Urinary tract infection: Start date: 07/07/24 Status: Acute Assessment and plan: Patient appears to have acute UTI with last pathogen being MRSA. Patient is on intravenous Cipro for milligrams every 12 hours with linezolid 600 mg twice a day. Follow-up urine cultures and change antibiotics coverage accordingly as switched to oral therapy. Continue indwelling Mckeon catheter which was exchanged in the ED. 07/08/24 As above zyvox 07/10/2024 As above, are waiting on urine culture results to target infection. Qualifiers: Hematuria presence: with hematuria Urinary tract infection type: acute cystitis Qualified Code(s): N30.01 - Acute cystitis with hematuria (3) Sacral decubitus ulcer: Status: Chronic Assessment and plan: Continue wound care while hospitalized and continue with [facility]. Patient is basically bedridden at this time. Qualifiers: Pressure injury stage: stage 3 Qualified Code(s): L89.153 - Pressure ulcer of sacral region, stage 3 (4) Hypertension: Assessment and plan: Not on outpatient medical therapy at this time with weight loss and decreased activity, low systolic blood pressures on IV fluid resuscitation. BP remains fairly soft today, but stable. 07/10/2024 Patient's current blood pressure is 121/76. Of note his heart rate is 47 but he is asymptomatic. I will ensure that he is not on a beta-ruthie. Qualifiers: Hypertension type: primary hypertension Qualified Code(s): I10 - Essential (primary) hypertension (5) History of follicular lymphoma: Status: Chronic Assessment and plan: Not active as well as treatment and surveyed annually. Recently placed on prednisone and this most likely was for his respiratory status being a daily smoker with COPD now on chronic inhalers. Will continue methylprednisolone and could call [facility] to check whether this is actually needed with patient initially not initiating but prescribed this. (6) Prostate cancer: Status: Chronic Assessment and plan: Status post radiation therapy on annual surveillance with chronic bladder outlet obstruction and indwelling Mckeon catheter. Mckeon catheter exchanged and UTI being treated. (7) Seizure disorder as sequela of cerebrovascular accident: Status: Chronic Assessment and plan: Continue antiseizure medications. Subjective Subjective Interval history since last seen: Patient seen and examined in his room this morning. Plan of care discussed with bedside nurse. Will also discussed at multidisciplinary rounds this morning. I did attempt to call his daughter this a.m. but able to voicemail. I will try to reconnect this afternoon. Nursing staff do report the patient is having some difficulty with his medication and not necessarily swallowing but not being completely compliant. Exam Narrative Exam Narrative: General: Patient appears older than stated age, thin almost cachectic, alert and oriented at least to person and place and in no acute distress. He has slow dysarthric speech. HEENT: Normocephalic, eyes with pupils equal and reactive to light symmetrically, extraocular move intact and sclera anicteric. Oropharynx with dry mucosa and poor dentition with missing teeth and carious teeth. Neck: Supple without JVD. Back: Kyphotic without CVA tenderness. Sacral area is bandaged with dry bandage and not examined with known stage II-III decubitus sacral ulcer cared for by home health [facility] the [facility]. Lungs: Bronchovesicular breath sound diffusely with no focalizing rales or rhonchi. No increased expiratory phase or expiratory wheeze. Fair aeration. Heart: Distant heart sounds with regular rate and rhythm and no appreciable murmur or gallop. Abdomen: Scaphoid and nontender to palpation without palpable hepatosplenomegaly. Soft palpation. No guarding or rebound. Bowel sounds positive all quadrants. Genitalia/rectal: Mckeon catheter remains in place. Urine output has improved in color. Skin: Pale, warm and dry with increased tenting and decreased turgor, rough texture over sun exposed areas with actinic changes. No bruising. Extremities: Without clubbing, cyanosis or grossly pitting edema. Muscle wasting diffusely. Fair capillary refill. Neuro: Cranial nerves II through XII grossly intact, dysarthric speech and patient hard of hearing. No focalizing motor deficits except for slight 's including face. Tone normal. No tremors. DTRs physiologic and symmetrical with no Babinski's. Psych: Normal affect and mood with slowed speech. No abnormal thought processes. Remote and recent memory appear to be grossly intact with some short-term memory deficits. Objective Last Vital Signs Temp 36.6 C 07/09/24 22:01 Pulse 42 L 07/10/24 06:01 Resp 18 07/10/24 06:01 BP 135/57 L 07/10/24 06:01 Pulse Ox 91 L 07/10/24 06:01 Laboratory Results - last 24 hr 07/10/24 05:35 WBC 8.84 RBC 3.39 L Hgb 10.0 L Hct 31.6 L MCV 93 MCH 29.5 MCHC 31.6 L RDW 15.9 H Plt Count 132 MPV 9.2 Sodium 142 Potassium 4.0 Chloride 109 H Carbon Dioxide 26.4 Anion Gap 6.6 BUN 10 Creatinine 0.9 Est GFR (CKD-EPI 2020) 87.42 Glucose 76 Calcium 9.0 Total Bilirubin 0.36 AST 58 H ALT 43 Alkaline Phosphatase 109 Total Protein 5.4 L Albumin 2.0 L Time Spent with Patient Time Spent with Patient: 35-49 minutes Time was spent: preparing to see the patient(eg.review tests), obtaining and/or reviewing separately otained hiistory, ordering medications,tests, procedures, referring, communicating with other health rn acute care, indepentently interpreting results, counseling the patient and care coordination
--- NOTE | 2024-07-10 11:05 | PHACLINREV_ITS ---
Pharmacy Admission Review Admission Clinical Review Admission Pharmacy Review: Urinary tract infection (Acute) Sepsis (Acute) cefazolin Allergy (Severe, Verified 07/07/24 22:13) Anaphylaxis iohexol (From Omnipaque) Allergy (Unknown, Verified 07/07/24 22:13) Unknown Iodinated Contrast Media Allergy (Verified 07/07/24 22:13) Skin Rash Rocuronium Allergy (Severe, Uncoded 07/07/24 22:13) Anaphylaxis Resuscitation Status DNI Height 5 ft 10 in Weight 53.6 kg Comments Comments/Follow Ups: Monitor liver enzymes (slight increase today, is on linezolid) Pharmacy Admission Review Renal Dosing Renal Dosing: BUN 10 mg/dL (7-18) 07/10/24 05:35 Creatinine 0.9 mg/dL (0.70-1.30) 07/10/24 05:35 Medications needing adjustments: Reviewed (CrCl 46.1 mL/min, BUN decreased from 19 and SCr decreased from 1) List of meds needing interventions: Current medications are okay Anticoagulation Anticoagulation: Hgb 10.0 g/dL (13.5-17.5) L 07/10/24 05:35 Hct 31.6 % (40.0-50.0) L 07/10/24 05:35 Plt Count 132 10^3/uL (130-400) 07/10/24 05:35 Creatinine 0.9 mg/dL (0.70-1.30) 07/10/24 05:35 DVT Prophylaxis: Reviewed (Hgb increased from 9.9) Medications: Enoxaparin (40mg daily) Relevant Labs Relevant Labs: Sodium 142 mmol/L (136-145) 07/10/24 05:35 Potassium 4.0 mmol/L (3.5-5.1) 07/10/24 05:35 Chloride 109 mmol/L (98-107) H 07/10/24 05:35 Magnesium 1.8 mg/dL (1.8-2.4) 07/08/24 09:45 Electrolytes, C-Reactive P, ESR: Reviewed (AST/ALT slightly increased from to 58/43) Cardiac Review Cardiac Review: Blood Pressure 145/68 1001 Blood Pressure 145/68 1000 Blood Pressure 142/69 0949 Blood Pressure 135/57 0601 Blood Pressure 145/69 0401 Blood Pressure 116/58 0201 Blood Pressure 121/76 0001 BP, HR, EF%: Reviewed (HR 46 - has ranged from 44-49 this AM) QTc Review QTc: Reviewed (412 from 02/28/24 - most recent EKG on file) IV to PO Switch IV Medications: Reviewed (lacosamide and linezolid) Home Meds Home Med List reviewed: Intervened Relevent Home Meds Not ordered & why?: From weekend pharmacist - updated to match the home med list based on the information on the med list other than the OTCs -atorvastatin dosing decreased, only on 40 QPM- ACTIVE order will need to be updated -acetaminophen, cholecalciferol, docusate and senna were not on the med [facility] the [facility] but per the med rec done in the ED the pt is taking these -tamsulosin- [facility] med list [facility] two caps once a day, home med list in [facility] notes 1 cap BID -methylprednisolone was removed from the med list as that rx was and per the directions it was being used when the pt was getting contrast media (got one dose 12 hours prior and the other 2 hours prior)- the ACTIVE order was dis continued I spoke with provider regarding the above changes made by weekend pharmacist. Provider asked that the order for atorvastatin be discontinued and that tamsulosin be changed from 1BID to 2QD. The changes were made. Changed Midazolam to patients own order, verified and sent up to floor. 2 boxes were brought in, one sent up and the other is being kept in patients own [facility]. Will send up if the first one gets used. Lacosamide 50mg tablets were brought in from home for patient. Label on bottle says may take 2 extra tabs if any UTI, fever or surgical procedure. I informed provider during morning meeting of this, provider said since patient is currently stable will keep the dose at 200mg BID. Per nursing, requested lacosamide be changed to IV due to patient difficulty taking. Provider changed. Will have bottle of 50mg tablets brought back down to pharmacy. Current Meds Current Medication Order Review: Intervened Comments: Added IV admission order set Discontinued atorvastatin and changed tamsulosin (see above) Pharmacy Antibiotic Review Relevant Labs: WBC 8.84 10^3/uL (4.4-10.8) 07/10/24 05:35 Procalcitonin 0.24 ng/mL 07/09/24 05:35 Temperature 36.5 C Microbiology 07/07/24 22:18 Urine Culture - Final Urine - Not Specified Gram Positive Kianna,Mixed Gram Negative Kianna,Mixed 07/07/24 22:34 Blood Culture - Final Blood Staph aureus, MRSA 07/07/24 22:53 Blood Culture - Final Blood Staph aureus, MRSA Pharmacy Antibiotic Activity: C/S review and Reviewed, no change Comments: Patient is on linezolid 600mg IV BID, day 3, for sepsis/UTI/bacteremia. Patients AST/ALT was slightly increased today at 58/43 (from ). Linezolid can cause an increase in liver enzymes, continue to monitor. Comments Comments/Follow Ups: Monitor liver enzymes (slight increase today, is on linezolid)
[2024-07-10] MEDS: LINEZOLID 600 MG/300 ML BAG 300 MG IVPB ×2 (12:15→23:25)
[2024-07-10] MEDS: Acetaminophen 500 MG TAB 1000 MG PO ×2 (12:35→19:48)
--- NOTE | 2024-07-10 15:55 | W.SPSTE ---
Date of service: 07/10/24 Time of Service: 16:44 Subjective Clinical (Bedside) Swallow Evaluation Speech Language Pathology Referred by: Medardo Grullon MD Referral Type: Clinical Swallow Evaluation Reason for Referral/HPI: Swallow evaluation [employer] IMPRESSIONS & RECOMMENDATIONS: Pt to resume regular consistencies diet with thin liquids. Nursing encouraged to contact [employer] [facility] department if new concerns arise. Suspect oral phase delays are related to behavior rather than dysphagia. FURTHER [facility] SERVICES: No further [facility] services indicated RN encouraged to contact [facility] department with any further concerns Diet Recommendations: SOLIDS: 7-Regular Solids LIQUIDS: 0-Thin Liquids MEDICATIONS: Whole with 0-Thin Liquids, Alter medications only as advised by MD or Pharmacist RISK MANAGEMENT: HOB upright as tolerated; upright for all PO intake. Encourage physical mobility as tolerated. Oral hygiene Level of Assistance/Supervision: Independent PO intake only when awake/alert? Strategies/Adaptations/Assistive Equipment: Small sips and bites when eating, Alternate intake of liquids and solids Posture/Positioning Needs: Maintain upright position at least 30 minutes after meals, Avoid meals/snacks 2-3 hours prior to reclining/sleeping SUBJECTIVE: Patient awake, reclined in bed when [employer] entered the room with RN. RN positioning pt to be upright in bed. RN explaining role of [employer] to pt, given her rapport with pt and his hesitancy to participate. Pt agreeable to participate in evaluation after RN education. During evaluation, pt holding food in his mouth and/or spitting out PO trials. Pt was hesitant to participate with just this [employer] given his lack of rapport with [employer]. RN returned to the room and assisted with evaluation to support pt's engagement. Pain Reported? No Baseline Swallow Function: RN reports baseline of regular diet, and no swallowing difficulties PO Trials Assessed: [x ] IDDSI 0 Thin Liquids [ x] IDDSI 4 Puree Solid [ x] IDDSI 7 Regular Solid Oral Mechanism Examination: Pt minimally engaging in oral mechanism examination. However, dentition appears poor. Pt was able to lateralize and protrude tongue. Cranial Nerve Assessment: [employer] unable to complete cranial nerve assessment due to pt's limited engagement. Oral Phase Findings: Difficulty with a-p transport with [employer], suspect this was related to behavior rather than function. When trials were administered by RN, pt demonstrated WFL oral phase Pharyngeal Phase Findings: [x ] WFL ASSESSMENT: Pt is a 78 year old male referred for swallow evaluation. Per RN, pt held medication in his mouth for several minutes without swallowing. However, she states she has never observed this pt to cough during/after meal time. Pt refusing to participate in evaluation with just [employer], given lack of rapport. However, when presented food/drink from RN, pt managed regular consistencies and thin liquid without over s/s aspiration. Suspect prolonged oral phase is related to behaviors rather than function. Recommend pt return to regular consistencies diet and thin liquids. RN is encouraged to contact [employer] [facility] department with any questions or concerns. Further [employer] Services not indicated. PLAN: NA Goals: NA -discharge from speech therapy [employer] [facility] [facility] CPT Code: 48159 Clinical Swallowing [id number]?Evaluation of speech sound production with evaluation of language comprehension and expression TOTAL TIME: [30] Minutes
[2024-07-10] MEDS: NORMAL SALINE IVPB (19:48)
[2024-07-10] MEDS: Senna TAB 1 TAB PO (19:48)
[2024-07-10] MEDS: Docusate Sodium 100 MG CAP PO (19:48)
[2024-07-10] MEDS: Melatonin 3 MG TAB PO (19:48)
[2024-07-10] MEDS: LACOSAMIDE IVPB (19:48)
[2024-07-11] VITALS (7 sets, daily range): BP systolic 106–136; BP diastolic 70–86; PULSE 57–79; RESP 16–20; TEMP 36.3–37.1; O2SAT 92–97
[2024-07-11] MEDS: Enoxaparin 40 MG/0.4 ML SYR SC (08:49)
[2024-07-11] MEDS: Potassium Chloride 10 MEQ TABCR PO (08:50)
[2024-07-11] MEDS: Senna TAB 1 TAB PO ×2 (08:50→20:41)
[2024-07-11] MEDS: Docusate Sodium 100 MG CAP PO ×2 (08:50→20:41)
[2024-07-11] MEDS: Tamsulosin 0.4 MG CAPCR 0.8 MG PO (08:50)
[2024-07-11] MEDS: LACOSAMIDE IVPB ×2 (08:51→20:42)
[2024-07-11] MEDS: NORMAL SALINE IVPB ×2 (08:51→20:42)
[2024-07-11] MEDS: Lactobacillus Acidophilus CAP 1 CAP PO (08:51)
--- NOTE | 2024-07-11 09:09 | CMPROGNOTE_ITS ---
Date of service: 07/11/24 Time of Service: 09:09 Care Management Progress Note Progress Note Text Progress Note Text: Narcisa was initially sleeping when CM tried to meet with him. His son, Barrie, was present. Barrie has a strained relationship with his mother and sister, and lives in [place]. He is here now through [employer] and plans to visit his Dad daily from 1-4 pm. CM also spoke with Bertha today, Narcisa's daughter. CM notified her that Dr. Trinidad from palliative care was planning to see her Dad this afternoon. Bertha did not feel that she could come in for that meeting, as her brother would be present, and asked if it could be via conference call with her mom and her. She reiterated the stress with her brother. Dr. Trinidad was in later in the day and she met with Barrie. Later, she and CM had a conference call with Darrel, Narcisa's , and Bertha. Narcisa was made DNR/DNI. It was clear to the family that Narcisa would not want to go to a mcc. Please see Dr. Trinidad's not for more detail. CM again met with Narcisa this afternoon. He was sitting up in the chair, and per PT did very well wit only minimal assist. Narcisa was able to answer simple questions, and stated that he was hungry. Riccos BC resulted as positvie for MRSA today. His treatment plan is not yet clear. Discharge Potential Discharge Needs: PCP F/U Appt Anticipated Barriers to Discharge: Medical Status (blood culture resulted positive for MRSA) Patient/Family Education Needs: Review discharge instructions, discuss Ask Me Three Transportation: Private vehicle Plan: Anticipate Narcisa will discharge home with resumption of HH RN when medically cleared for discharge. Patient will need [facility] with [facility] and [facility]. CM will continue to follow SDOH(Care Management) Screening Will the Patient Participate in the Screening?: Yes Do you worry about having a steady place to live?: no Problems where you live: no known problems In the past 12 months, have you had to go without electric, gas, oil or water in your home?: no Have you or anyone in your house had to go without enough food to eat?: no Has lack of transportation kept you from medical appointments or from doing things needed for daily living?: no Has anyone in your support network made you feel unsafe for any reason?: no Anticipated HH Services Anticipated HH Services at Discharge [facility] (will need to check on status of his services. If he stays a while, may need new face to face to resumption of care.) RN.
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
--- NOTE | 2024-07-11 14:15 | IN_ITS ---
PT Notes Visit Reasons: Sepsis, UTI with MRSA, CHUCK, .... Physical Therapy Inpatient Initial Evaluation Date:07/11/2024 Referring Doctor: Medardo Grullon MD PT Orders: PT CONSULT: Eval/treat Precautions: Fall. Activity as tolerated. On CONTACT PRECAUTIONS IN PLACE. Patient Profile/Admitting Diagnosis: Narcisa is a 78-year-old male with past medical history significant for seizure disorder as a sequela previous CVA, nondisplaced subcapital femoral neck fracture on the left side and is status post ORIF with cannulated screw fixation on 02/28/2024, and PTSD who presented to the ED on 07/07/2024 due to difficulty ambulation, pain in coccyx, increased confusion in the past 2 weeks prior to admission, and generalized weakness. Per chart, the patietn has lost about 11.5 pounds since March of this year. Patient is admitted for management of sepsis, UTI, sacral decubitus, history of folillicular lymphoma, and seizure disorder. PMHX: All Active Problems Sacral decubitus ulcer (Chronic) Urinary tract infection (Acute) Sepsis (Acute) Advanced care planning/counseling discussion (Acute) Palliative care encounter (Acute) Seizure disorder as sequela of cerebrovascular accident (Chronic) s/p CVA/hemorrhage, h/o breakthrough in setting of UTI/fever Abnormal weight loss (Acute) Recurrent UTI (Acute) History of follicular lymphoma (Chronic) Prostate cancer (Chronic) S/P Radiation therapy. Currently under surveillance with very low but detectible PSA (05/2024). Dr. Evans. 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 Major depressive disorder, single episode Leakage of other urinary catheter, initial encounter Family history of breast cancer Essential (primary) hypertension Delirium due to known physiological condition Contact with and (suspected) exposure to other hazardous substances Bradycardia, unspecified Closed fracture of left proximal humerus (01/10/23) CVA (cerebral vascular accident) Lymphoma Hypertension Surgical History History of craniotomy for brain bleed Social History/Home Situation: Lives alone. Modified independent indoors and outdoors using front-wheeled walker. Equipment Owned/DME: SPC, FWW Subjective: Complained of pain and discomfort on scortal and sacral areas during bed mobility. Fatigued over standing up for over 5 minutes during pericare with assiatnce of Nurse Mojgan. was briefly lightheaded upon sitting up at edge of bed. Objective: General Observation: Cachexic. Resting in bed. IV access through L UE. Mckeon catheter in place. Wound dressing over sacral decubitus replaced by Nurse Mojgan, tuneling and slough noted with periphery of wound dark pink in color. telemtry monitoring in place. Mental Status: Alert and oriented as to person and place. Able to pay attention, focus, and respond appropriately. Pain: As above Vital Signs: Closely monitored by nursing staff ROM: Right Upper Extremity: Shoulder Flexion lacks the last 50% of AROM. Shoulder abduction lacks the last 50% of AROM. Elbow flexion WFL. Wrist flexion WFL. Functional opening and closing of hand WFL. Left Upper Extremity: Shoulder Flexion lacks the last 50% of AROM. Shoulder abduction lacks the last 50% of AROM. Elbow flexion WFL. Wrist flexion WFL. Functional opening and closing of hand WFL. Right Lower Extremity: Hip flexion WFL. Hip abduction WFL. Knee flexion 20 degrees to 90 degrees. Knee extension -20 degrees. Ankle dorsiflexion to neutral only. Ankle plantarflexion WFL. Left Lower Extremity: Hip flexion allows WFL. Hip abduction WFL. Knee flexion 30 degrees to 90 degrees. Knee extesnion -30 degrees. Ankle dorsiflexion WFL. Ankle plantarflexion WFL. Strength: Right Upper Extremity: Shoulder flexors 3-/5. Shoulder abductors 3-/5. Elbow flexors 4/5. Elbow extensors 4/5. Assembly Machine Offbearer strong. Left Upper Extremity: Shoulder flexors 3-/5. Shoulder abductors 3-/5. Elbow flexors 4/5. Elbow extensors 4/5. Assembly Machine Offbearer strong. Right Lower Extremity: Hip flexors 4/5. Hip abductors 4/5. Knee flexors 3-/5. Knee extensors 3-/5. Ankle dorsiflexors 3-/5. Ankle plantarflexors 4-/5. Left Lower Extremity: Hip flexors 3-/5. Hip abductors 3-/5. Knee flexors 3-/5. Knee extensors 3-/5. Ankle dorsiflexors 3-/5. Ankle plantarflexors 4-/5. Bed Mobility/Transfers: Minimal cueing provided for use of B hands as needed for support, movement sequence, AD management, and posture to reduce fall risk and minimize pain report Supine to sit minimal assist Sit to stand minimal assist with FWW Stand to sit with minimal assist with FWW Bed to reclining chair minimal assist with FWW Gait: 5 small steps with use of FWW with minimal assist and minimal verbal cueing for safe limb advancement, hand placement, AD management, and posture to minimize pain report and reduce fall risk. No LOB. No SOB. Fatigued over having to stand for at least 5 minutes for completion of pericare with assistance from Nurse Ulrich. Balance: Static Sitting: Normal Dynamic Sitting: Normal Static Standing: Fair Dynamic Standing: Fair Special Tests: Mobility Limitations Standardized Measure [facility] AM-PAC 6 clicks Basic Mobility Inpatient Short Form: Raw Score: 17 CMS Score: 51% deficit Informed Consent/Education: Patient was instructed in purpose of PT consult and plan of care. Agreeable to proceed with established PT POC to achieve personal goals. Assessment: Patient presents with clinical signs and symptoms consistent with current/admitting diagnoses that have resulted to mobility limitations, gait instability, generalized weakness, and overall ADL decline as demonstrated by the following impairment level findings: 1. Decreased strength to L hip and knee major muscle groups; L shoulder and L LE from preveious CVA 2. Impaired sitting/standing balance 3. Impaired activity tolerance 4. Limitation of joint range of motion in L hip and knee 5. Pain sacral and perineal area at moderpate pain level with movement Impairments are contributing to the following functional limitations: 1. Decline in bed mobility skills 2. Decline in transfer skills 3. Difficulty with ambulation without assistive device and physical assistance 4. Increased completion time for mobility ADL performance 5. Increased risk for falls 6. Difficulty with managing steps alone safely Patient is assessed as a 54268 moderate complexity based on the following: History: 78-year-old male with past medical history as indicated above Examination: Demonstrable impairment in strength, balance, and mobility level with underlying impairments and functional limitations as exhibited above as well as deficit score of 51% utilizing the [facility] Mobility Inpatient Short Form Presentation: Evolving Decision Makin moderate complexity Goals: Goals X1 week 1. Supine-Sit independent 2. Sit-Supine independent 3. Sit-Stand independent 4. Stand-Sit independent with FWW 5. Bed-Chair independent with FWW 6. Chair-Bed independent with FWW 7. Independent gait on level surface with use of FWW for at least 300 feet without report of pain nor dyspnea 8. Independent stair negotiation while holding onto B rails for at least 3 steps without report of pain nor dyspnea 9. Independent with home exercise program 10. Good static and dynamic standing balance/tolerance Plan of Care/Treatment Plan: 1-2x/day, 7 days/week x 1 week. Plan of care has been reviewed with the PENOLOGY PROFESSOR providing the service under Physical Therapy direction. Initiate Physical Therapy intervention for pain management as needed, strengthening, bed mobility, transfers, gait, stairs, balance training, and use of assistive device. DISCHARGE RECOMMENDATIONS: [] Home with no services [] [] Home with services [specify] [] Home with outpatient PT [] [] SNF for continued rehabilitation [] [] [facility] [] [] SNF versus LTC based on ability to participate and progress [] [X] Short-term rehab vs. PT based on progress towards goals TREATMENT CODE/TIME: 44761 x 20 minutes for 1 unit, 60968 x 19 minutes for 1 unit (14:15-14:54). Thank you for the opportunity to participate in the care of this patient. Yu Estrada PT, DPT, CLT [facility] [place], [place]
--- NOTE | 2024-07-11 14:47 | PGE_ITS ---
Date of Service Date of service: 07/11/24 Time of Service: 14:47 Assessment and Plan Assessment and plan (1) Sepsis: Start date: 07/07/24 Status: Acute Assessment and plan: This is a 78-year-old [place] gentleman reporting to the ED because of increasing confusion from baseline with vascular dementia chronically status post CVAs on antiseizure medicine. He does have recurrent UTI which is the probable source of sepsis with no fever but elevated WBC and tachycardia. He also has borderline hypotension with increase in his baseline creatinine. To be slightly dehydrated. He also has hypokalemia. He has intermittent hypomagnesemia but this is stable and normal. He will be admitted for IV antibiotic therapy for UTI and fluid resuscitation with normal saline and potassium supplement at 150 cc/h ordered closely for fluid overload. He does expect to return home to his family care and is approaching hospice with palliative care consultation placed during his hospital stay and also being [facility]. Patient is a DNI. 07/08/24 pt does appear to be improving in regards to vitals/labs/mentation 07/09/2024 Pt will continue with current plan. Awaiting final urine/blood cultures to deescalate therapy 07/10/2024 Patient's vital signs and labs are trending in the correct direction. He we do not have urine cultures as well as blood cultures resulted but no sensitivities available at this time. Will continue with current Zyvox as it appears to be responding appropriately 07/11/2024 Patient's blood cultures have been reviewed and his blood cultures are positive for MRSA and we are waiting on sensitivities. Actually as of 1449 his MRSA cultures came back and they were susceptible to linezolid. Urine cultures are still pending sensitivities. Patient's white count trend has been reassuring. A repeat CMP has been ordered for the a.m. Qualifiers: Sepsis type: methicillin resistant Staphylococcus aureus Sepsis acute organ dysfunction status: with acute organ dysfunction Severe sepsis acute organ dysfunction type: acute renal failure Acute renal failure type: with other specified pathological lesion Severe sepsis shock status: without septic shock Qualified Code(s): A41.02 - Sepsis due to Methicillin resistant Staphylococcus aureus; R65.20 - Severe sepsis without septic shock; N17.8 - Other acute kidney failure (2) Urinary tract infection: Start date: 07/07/24 Status: Acute Assessment and plan: Patient appears to have acute UTI with last pathogen being MRSA. Patient is on intravenous Cipro for milligrams every 12 hours with linezolid 600 mg twice a day. Follow-up urine cultures and change antibiotics coverage accordingly as switched to oral therapy. Continue indwelling Mckeon catheter which was exchanged in the ED. 07/08/24 As above zyvox 07/10/2024 As above, are waiting on urine culture results to target infection. Qualifiers: Urinary tract infection type: acute cystitis Hematuria presence: with hematuria Qualified Code(s): N30.01 - Acute cystitis with hematuria (3) Sacral decubitus ulcer: Status: Chronic Assessment and plan: Continue wound care while hospitalized and continue with [facility]. Patient is basically bedridden at this time. Qualifiers: Pressure injury stage: stage 3 Qualified Code(s): L89.153 - Pressure ulcer of sacral region, stage 3 (4) Hypertension: Assessment and plan: Not on outpatient medical therapy at this time with weight loss and decreased activity, low systolic blood pressures on IV fluid resuscitation. BP remains fairly soft today, but stable. 07/10/2024 Patient's current blood pressure is 121/76. Of note his heart rate is 47 but he is asymptomatic. I will ensure that he is not on a beta-ruthie. 07/11/2024 Blood pressure has risen to 130/86. If this trend continues we will restart his antihypertensive regimen. Qualifiers: Hypertension type: primary hypertension Qualified Code(s): I10 - Essential (primary) hypertension (5) History of follicular lymphoma: Status: Chronic Assessment and plan: Not active as well as treatment and surveyed annually. Recently placed on prednisone and this most likely was for his respiratory status being a daily smoker with COPD now on chronic inhalers. Will continue methylprednisolone and could call [facility] to check whether this is actually needed with patient initially not initiating but prescribed this. 07/11/2024 Per review records obtained by pharmacy the patient is not on daily steroid use (6) Prostate cancer: Status: Chronic Assessment and plan: Status post radiation therapy on annual surveillance with chronic bladder outlet obstruction and indwelling Mckeon catheter. Mckeon catheter exchanged and UTI being treated. (7) Seizure disorder as sequela of cerebrovascular accident: Status: Chronic Assessment and plan: Continue antiseizure medications. 07/11/2024 At the request of the nurse and ICU nursing staff I have changed his Vimpat to IV for ease of delivery. Subjective Subjective Interval history since last seen: Patient seen and examined in his room this a.m. and was without significant complaint. Plan of care was discussed with bedside nurse. Hospice consult has been placed and will be seen by hospice physician today. Exam Narrative Exam Narrative: General: Patient appears older than stated age, thin almost cachectic, alert and oriented at least to person and place and in no acute distress. He has slow dysarthric speech. HEENT: Normocephalic, eyes with pupils equal and reactive to light symmetric ally, extraocular move intact and sclera anicteric. Oropharynx with dry mucosa and poor dentition with missing teeth and carious teeth. Neck: Supple without JVD. Back: Kyphotic without CVA tenderness. Sacral area is bandaged with dry bandage and not examined with known stage II-III decubitus sacral ulcer cared for by home health through the [facility]. Lungs: Bronchovesicular breath sound diffusely with no focalizing rales or rhonchi. No increased expiratory phase or expiratory wheeze. Fair aeration. Heart: Distant heart sounds with regular rate and rhythm and no appreciable murmur or gallop. Abdomen: Scaphoid and nontender to palpation without palpable hepatosplenomegaly. Soft palpation. No guarding or rebound. Bowel sounds positive all quadrants. Genitalia/rectal: Mckeon catheter remains in place. Urine output has improved in color. Skin: Pale, warm and dry with increased tenting and decreased turgor, rough texture over sun exposed areas with actinic changes. No bruising. Extremities: Without clubbing, cyanosis or grossly pitting edema. Muscle wasting diffusely. Fair capillary refill. Neuro: Cranial nerves II through XII grossly intact, dysarthric speech and patient hard of hearing. No focalizing motor deficits except for slight 's including face. Tone normal. No tremors. DTRs physiologic and symmetrical with no Babinski's. Psych: Normal affect and mood with slowed speech. No abnormal thought processes. Remote and recent memory appear to be grossly intact with some short-term memory deficits. Objective Last Vital Signs Temp 36.5 C 07/11/24 12:08 Pulse 65 07/11/24 12:08 Resp 18 07/11/24 12:08 BP 109/70 07/11/24 12:08 Pulse Ox 95 07/11/24 08:26 Time Spent with Patient Time Spent with Patient: 35-49 minutes Time was spent: preparing to see the patient(eg.review tests), obtaining and/or reviewing separately otained hiistory, ordering medications,tests, procedures, referring, communicating with other health congregational care pastor, indepentently interpreting results, counseling the patient and care coordination
[2024-07-11] MEDS: LINEZOLID 600 MG/300 ML BAG 300 MG IVPB (15:14)
--- NOTE | 2024-07-11 17:50 | W.PC.ACHO ---
Registration Status: Primary Language: Preferred Language: ED Information & Data Chief Complaint Urinary 07/07/24 22:22 Triage Note Pt arrives via EMS c/o AMS x 07/07/24 22:11 2 days d/t chronic UTI's. Pt arrives w indwelling catheter w cloudy yellow urine. Pt c/o pain on his cocccyx area where there is a pre-existing pressure ulcer. BG [id number]. No other complaints at this time. Medical / Surgical History (Last Reviewed 07/08/24 @ 06:23 by Robson Ochoa) Other specified counseling Nicotine dependence, cigarettes, uncomplicated Other types of follicular lymphoma, 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 Major depressive disorder, single episode Leakage of other urinary catheter, initial encounter Family history of breast cancer Essential (primary) hypertension Delirium due to known physiological condition Contact with and (suspected) exposure to other hazardous substances Bradycardia, unspecified Closed fracture of left proximal humerus (01/10/23) CVA (cerebral vascular accident) Lymphoma Hypertension (Last Reviewed 07/08/24 @ 06:23 by Robson Ochoa) History of craniotomy Most Recent Vital Signs Temperature 36.3 C L 07/11/24 16:34 Temperature Source Temporal Artery Scan 07/11/24 16:34 Pulse 79 07/11/24 16:34 Pulse 86 07/10/24 18:00 Respiratory Rate 18 07/11/24 16:34 Respiratory Effort Normal 07/08/24 01:25 Respiratory Pattern Normal 07/08/24 01:25 Blood Pressure 106/76 07/11/24 16:34 Blood Pressure Mean 82 07/11/24 12:08 Blood Pressure Position Supine 07/08/24 01:25 Pulse Oximetry 95 07/11/24 16:34 Oxygen Delivery Method Room Air 07/11/24 16:34 Oxygen Flow Rate 0 07/11/24 16:34 Pain Level 0 07/11/24 17:06 Comment see captured vital signs 07/11/24 08:30 Allergies cefazolin Allergy (Severe, Verified 07/07/24 22:13) Anaphylaxis preoperative CV collapse, possible causative agent iohexol (From Omnipaque) Allergy (Unknown, Verified 07/07/24 22:13) Unknown Iodinated Contrast Media Allergy (Verified 07/07/24 22:13) Skin Rash Rocuronium Allergy (Severe, Uncoded 07/07/24 22:13) Anaphylaxis Potential allergy, to be reviewed. Anaphylaxis during anesthetic event. Active Medications Generic Name Dose Route Start Last Admin Trade Name Freq PRN Reason Stop Dose Admin Acetaminophen 1,000 mg 07/08/24 07:13 07/10/24 19:48 Acetaminophen 500 Mg Tab PO 1,000 mg Q8H PRN PRN Administration Acidophilus/Pectin 1 cap 07/09/24 08:30 07/11/24 08:51 Lactobacillus Acidophilus Cap PO 1 cap DAILY MERCEDES Administration Cholecalciferol 1,000 units 07/08/24 08:30 07/10/24 08:41 Cholecalciferol (Vitamin D3) 1,000 Unit Tab PO Not Given Q48H MERCEDES Docusate Sodium 100 mg 07/08/24 08:30 07/11/24 08:50 Docusate Sodium 100 Mg Cap PO 100 mg BID MERCEDES Administration Enoxaparin Sodium 40 mg 07/09/24 08:30 07/11/24 08:49 Enoxaparin 40 Mg/0.4 Ml Syr SC 40 mg Q24H MERCEDES Administration Linezolid 600 mg in 300 mls @ 300 mls/hr 07/08/24 12:00 07/11/24 15:14 Zyvox Premixed Bag IVPB 300 mls/hr Q12H MERCEDES Administration Lacosamide 200 mg/ Sodium 70 mls @ 100 mls/hr 07/10/24 20:00 07/11/24 10:54 Chloride IVPB Infused BID MERCEDES Infusion Leptospermum Honey 15 ml 07/08/24 02:09 07/10/24 08:43 Honey 15 Ml Tube TP 15 ml DIRECTED PRN Administration dresssing change Melatonin 3 mg 07/08/24 20:00 07/10/24 19:48 Melatonin 3 Mg Tab PO 3 mg HS MERCEDES Administration Nicotine 21 mg 07/08/24 01:44 07/08/24 02:35 Nicotine 21 Mg/24 Hr Patch TD 21 mg DAILY PRN PRN Administration Potassium Chloride 10 meq 07/08/24 08:30 07/11/24 08:50 Potassium Chloride 10 Meq Tabcr PO 10 meq DAILY MERCEDES Administration Sennosides 1 tab 07/08/24 08:30 07/11/24 08:50 Senna Tab PO 1 tab BID MERCEDES Administration Sodium Chloride 0 ml 07/10/24 00:27 07/10/24 23:27 Normal Saline Flush 10 Ml Syr IVP 20 ml PRN PRN Administration Tamsulosin HCl 0.8 mg 07/11/24 08:30 07/11/24 08:50 Tamsulosin 0.4 Mg Capcr PO 0.8 mg DAILY MERCEDES Administration IV IV Catheter Type [Left Forearm Saline Lock ] IV Catheter Type [Left Wrist] Saline Lock IV Catheter Gauge [Left 20 Forearm] IV Catheter Gauge [Left Wrist] 18 Intake and Output - 24 Hour Total 07/07/24 22:02 thru 07/11/24 14:45 Intake Total 05131.5 Output Total 5940 Balance 6242.5 Weight 48.9 kg Intake: IV 9457.5 Oral 2725 Output: Urine 5940 Other: Urine Color Yellow Urine Appearance Clear Urine Odor None Comment Catheter remains clean; perineal, buttocks, and groin area cleaned post bowel movement. Stool Size Large Stool Characteristics Soft Urinary Catheter Urinary Catheter Date of 07/07/24 Insertion [Urethral (Giraldo)] Falls Risk Assessment History of Falls Previous History 07/08/24 01:25 Contributing Factors Confusion,Impairments, 07/08/24 01:25 Incontinence Ambulatory Aids Uses ambulatory device + 07/08/24 01:25 Tubes/Lines With any additional score 07/08/24 01:25 Gait Evaluation W/any additional score 07/08/24 01:25 Cognition Cognitive impairment 07/08/24 01:25 Fall Total Score 109 07/08/24 01:25 Level of Risk Maximum Risk 07/08/24 01:25 Problems (Last Reviewed 07/08/24 @ 06:23 by Robson Ochoa) Delirium (Acute) Sepsis due to methicillin resistant Staphylococcus aureus (MRSA) (Acute) Sacral decubitus ulcer (Chronic) Urinary tract infection (Acute) Sepsis (Acute) Advanced care planning/counseling discussion (Acute) Palliative care encounter (Acute) Seizure disorder as sequela of cerebrovascular accident (Chronic) Abnormal weight loss (Acute) History of follicular lymphoma (Chronic) Prostate cancer (Chronic) Failure to thrive in adult (Acute) v v v v v v v v v Sending and/or Receiving Nurses: Please use comment section below to note any information pertinent to the patient hand-off not included above. Information / Comments: Pt presented with UTI w/ sepsis, MRSA+ in blood, cachexia, chronic giraldo. Report received from: [facility]
[2024-07-11] MEDS: Normal Saline Flush 10 ML SYR IVP (20:41)
[2024-07-11] MEDS: Melatonin 3 MG TAB PO (20:41)
[2024-07-12 07:02] LABS: HCT 32.7 % (40.0-50.0); HGB 10.8 g/dL (13.5-17.5); MCH 29.5 pg (27.0-33.0); MCV 89 fL (80-95); MPV 8.6 fL (8.0-11.0); Platelet Count 122 10^3/uL (130-400); RBC 3.66 10^6/uL (4.36-5.78); RDW 15.3 % (11.8-14.1); RDW-SD 50.1 fL; WBC 7.57 10^3/uL (4.4-10.8)
[2024-07-12 07:20] LABS: ALT 32 U/L (16-63); AST 22 U/L (15-37); Albumin 2.1 g/dL (3.4-5.0); Alkaline Phosphatase 103 U/L (46-116); Anion Gap 6.4 mmol/L (3-11); BUN 13 mg/dL (7-18); Bilirubin, Total 0.58 mg/dL (0.2-1.0); CO2 30.6 mmol/L (21.0-32.0); CREATININE 0.9 mg/dL (0.70-1.30); Calcium 8.8 mg/dL (8.5-10.1); Chloride 105 mmol/L (98-107); Estimated GFR 87.42 (mL/min/1.73m2); Glucose 76 mg/dL (74-106); Potassium 3.2 mmol/L (3.5-5.1); Sodium 142 mmol/L (136-145); Total Protein 5.8 g/dL (6.4-8.2)
[2024-07-12 08:03] VITALS: BP 127/69; PULSE 60; RESP 14; TEMP 36.7; O2SAT 95
[2024-07-12] MEDS: NORMAL SALINE IVPB ×2 (08:28→20:53)
[2024-07-12] MEDS: LACOSAMIDE IVPB ×2 (08:28→20:53)
--- NOTE | 2024-07-12 08:45 | PDOC.CMPRO ---
Date of service: 07/12/24 Time of Service: 08:45 Care Management Progress Note Progress Note Text Progress Note Text: Narcisa was sitting up in the bedside chair when CM met with him this afternoon. His son Barrie was with him. Narcisa was Discharge Potential Discharge Needs: PCP F/U Appt Anticipated Barriers to Discharge: Medical Status Patient/Family Education Needs: Review discharge instructions, discuss Ask Me Three Transportation: Private vehicle Plan: Anticipate Narcisa will discharge home with resumption of HH RN, and possibly PT, when medically cleared for discharge. Patient will need [facility] with [facility] and [facility]. CM will continue to follow SDOH(Care Management) Screening Will the Patient Participate in the Screening?: Yes Do you worry about having a steady place to live?: no Problems where you live: no known problems In the past 12 months, have you had to go without electric, gas, oil or water in your home?: no Have you or anyone in your house had to go without enough food to eat?: no Has lack of transportation kept you from medical appointments or from doing things needed for daily living?: no Has anyone in your support network made you feel unsafe for any reason?: no
[2024-07-12] MEDS: Senna TAB 1 TAB PO ×2 (08:46→20:00)
[2024-07-12] MEDS: Cholecalciferol (Vitamin D3) 1,000 UNIT TAB 1000 UNITS PO (08:46)
[2024-07-12] MEDS: Normal Saline Flush 10 ML SYR IVP (08:47)
--- NOTE | 2024-07-12 09:16 | CHAPLAIN ---
I had a long conversation with Narcisa yesterday as he was finishing up his supper. He told me about the conversation he'd had the night before in the ICU wiht Lianne Slater RN, and indicated that their conversation had been helpful to him. Narcisa's father was a Marine and they traveled around while Narcisa was growing up. 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 He talked about two significant spiritual experiences he had, one when he was about [age] and one while in [place]. These experiences were comforting, stayed with him, and confirmed for him the existence of God, although Narcisa believes they didn't alter the course of his life. While in the [employer], Narcisa said he knew other Irma's had rastafarian and spiritual experiences and believed in God, but they didn't speak about it. Narcisa told me that he doesn't believe that he will get better from his health issues, but doesn't seem troubled by this. He clearly is giving a lot of thought to how his life may be ending and is processing this. He said he thought he was going to one night when he was in the ICU. He was confused about what Palliative Care is. He had a Palliative Care consult the other day. He also said he is aware that he has some confusion. Before I left he asked if his nurse would come in and talk with him about his medications to make sure the information had been shared by the ICU staff, so I asked his nurse to speak with him and shared what his concerns were.
[2024-07-12] MEDS: Docusate Sodium 100 MG CAP PO ×2 (09:39→20:35)
[2024-07-12 11:03] VITALS: BP 118/74; PULSE 60; RESP 18; TEMP 36.5; O2SAT 95
--- NOTE | 2024-07-12 12:01 | PGE_ITS ---
Date of Service Date of service: 07/12/24 Time of Service: 12:01 Assessment and Plan Assessment and plan (1) Sepsis: Start date: 07/07/24 Status: Acute Assessment and plan: -secondary to MRSA UTI and bacteremia -has been on linezolid, but patient refused this AM along with other AM medications -will have Palliative readdress goals of care with patient and posible transition to COMPUTER TEACHER Qualifiers: Sepsis type: methicillin resistant Staphylococcus aureus Sepsis acute organ dysfunction status: with acute organ dysfunction Severe sepsis acute organ dysfunction type: acute renal failure Acute renal failure type: with other specified pathological lesion Severe sepsis shock status: without septic shock Qualified Code(s): A41.02 - Sepsis due to Methicillin resistant Staphylococcus aureus; R65.20 - Severe sepsis without septic shock; N17.8 - Other acute kidney failure (2) Urinary tract infection: Start date: 07/07/24 Status: Acute Assessment and plan: -as notd above -Continue indwelling Mckeon catheter which was exchanged in the ED Qualifiers: Urinary tract infection type: acute cystitis Hematuria presence: with hematuria Qualified Code(s): N30.01 - Acute cystitis with hematuria (3) Sacral decubitus ulcer: Status: Chronic Assessment and plan: -Continue wound care while hospitalized and continue with [facility]. Patient is basically bedridden at this time. Qualifiers: Pressure injury stage: stage 3 Qualified Code(s): L89.153 - Pressure ulcer of sacral region, stage 3 (4) Hypertension: Assessment and plan: -Not on outpatient medical therapy at this time with weight loss and decreased activity, low systolic blood pressures on IV fluid resuscitation. Qualifiers: Hypertension type: primary hypertension Qualified Code(s): I10 - Essential (primary) hypertension (5) History of follicular lymphoma: Status: Chronic Assessment and plan: -Not active as well as treatment and surveyed annually. -Recently placed on prednisone and this most likely was for his respiratory status being a daily smoker with COPD now on chronic inhalers. -Will continue methylprednisolone, though per records obtained by pharmacy the patient is not on daily steroid use (6) Prostate cancer: Status: Chronic Assessment and plan: -Status post radiation therapy on annual surveillance with chronic bladder outlet obstruction and indwelling Mckeon catheter. -Mckeon catheter exchanged and UTI being treated. (7) Seizure disorder as sequela of cerebrovascular accident: Status: Chronic Assessment and plan: -Continue antiseizure medications Subjective Subjective Interval history since last seen: Patient states that his bottom hurts from the position that he is sitting in. Otherwise he states that he has no other complaints or concerns at this time. Exam Narrative Exam Narrative: Thin, cachectic appearing older gentleman laying in bed in no acute distress, awake, alert to person and place, heart regular rhythm, lungs clear to auscultation bilaterally, abdomen soft, nontender, nondistended Objective Last Vital Signs Temp 97.7 F 07/12/24 11:03 Pulse 60 07/12/24 11:03 Resp 18 07/12/24 11:03 BP 118/74 07/12/24 11:03 Pulse Ox 95 07/12/24 11:03 Laboratory Results - last 24 hr 07/12/24 06:15 WBC 7.57 RBC 3.66 L Hgb 10.8 L Hct 32.7 L MCV 89 D MCH 29.5 MCHC 33.0 RDW 15.3 H Plt Count 122 L MPV 8.6 Sodium 142 Potassium 3.2 L Chloride 105 Carbon Dioxide 30.6 Anion Gap 6.4 BUN 13 Creatinine 0.9 Est GFR (CKD-EPI 2020) 87.42 Glucose 76 Calcium 8.8 Total Bilirubin 0.58 AST 22 ALT 32 Alkaline Phosphatase 103 Total Protein 5.8 L Albumin 2.1 L Time Spent with Patient Time Spent with Patient: >50 minutes Time was spent: obtaining and/or reviewing separately otained hiistory, ordering medications,tests, procedures, referring, communicating with other health healthcare economics consultant, indepentently interpreting results, counseling the patient and care coordination
--- NOTE | 2024-07-12 13:24 | WOUNDCONS_ITS ---
Date of service: 07/12/24 Time of Service: 12:00 Wound Initial Evaluation Narrative Narrative: Pt is a 78 year old man. He has a diverse history of Diabetes, CVA, mild vascular dementia, craniotomy post bleed, seizures, prostate CA, lymphoma, exposure to agent orange. He is a current smoker. Mr. Eduardo is emaciated with a height of 5ft 10 inches, wgt of 48.9 with BMI of 15.5. He came in with urosepsis with MRSA. WBC on admission 13.85, now down to 7.57. Lactate on 07/09 of 1.7, procalcitonin of 0.24. Blood cultures positive for MRSA. Is having repeat blood cultures today. No wound culture report noted. Also has some anemia with H&H of 10.8, 32.7. States he is eating better here than he has been at home. He is very sedentary at baseline. Body Four View: 2 1. Coccyx 2. Left ischial tuberosity Wound Coccyx: Wound Type: Deep Tissue Injury (DTI) and Full Thickness Pressure Ulcer Stage: Eschar/Unstageable Wound General Appearance: Blackened and Necrotic Wound Bed Greatest Portion: Black (Eschar) Wound Bed Lesser Portion: Yellow (Slough) Wound Surrounding Tissue Appearance: Bright Red Percent of Wound Bed Granulated/Red: 0 Percent of Wound Bed Slough/Yellow: 50 Percent of Wound Bed Eschar/Black: 50 Wound Length: 2.56 in Wound Width: 1.89 in Wound Drainage Amount: Minimal Wound Drainage Odor: None/Absent Wound Drainage Description: Brown Wound Topical Solution/Irrigant: Other (Skin Integrity) Wound Debridement Method: Gauze Wound Debridement Result: Yellow Sloughing Remains and Necrotic Remains Wound Debridement Amount of Tissue Removed: Minimal Left ischial tuberosity: Wound Type: Pressure Ulcer and Partial Thickness Pressure Ulcer Stage: II Wound General Appearance: Clean/Dry and Unapproximated Wound Bed Greatest Portion: Pale [place] Wound Surrounding Tissue Appearance: Bright Red and Blanched/Dull (blanched area surrounded by bright red) Wound Length: 0.39 in Wound Width: 0.2 in Wound Depth: 0.08 in Wound Drainage Amount: Minimal Wound Drainage Odor: None/Absent Wound Drainage Description: Brown Wound Topical Solution/Irrigant: Other (Skin Integrity) Wound Debridement Method: Gauze Wound Debridement Result: Other (remains pale pink) Wound Debridement Amount of Tissue Removed: None Pain Pain Level: 8 Pain Scale Used: Adult Pain Description: Achy Pain Duration/Frequency: Intermittent and With Palpation Wound Summary Wound Summary: Coccyx with unstageable necrotic tissue. Bone felt just beneath intact layer of eschar. Probability of osteomyelitis is high. Culture of open area of eschar taken and sent to lab. Would recommend obtaining images to rule out osteomyelitis as this may also be another source of sepsis. May also need surgical debridement but due to possible bone involvement this will be challenging. Pt discussed palliative status and does not fully understand process and has negative feelings about it. Photo Photo: Treatment/Dressing Change Topicals/Ointments: Santyl Cleanse With: Other (Skin Integrity) Dressing Types: Mepilex w/Border (large sacral mepilex) and Skin Prep Additional Other Comments: On smaller wound, apply zinc oxide paste and cover with foam dressing. Nutrition Education Reviewed Nutrition Education: Yes Note: Discussed increased protein intake for weight gain and wound healing. Discussed milk shakes with added protein powder. Recomendation Recomendation:: Coccyx 1. Cleanse with Skin Integrity wound cleanser and allow to dwell for 2 minutes. 2. Pat dry. 3. Apply nickel thickness of Santyl to wound bed. 4. Apply skin prep to kevin-wound area. 5. Apply large sacral mepilex to area. 6. Change daily. Left ischial tuberosity 1. Cleanse with Skin Integrity wound cleanser and allow to dwell for 2 minutes. 2. Pat dry. 3. Apply zinc oxide past to area. 4. Apply skin prep to kevin-wound area. 5. Apply 2x2 foam pad to area. 6. Change daily. Use pillows under head, under both arms, and under each leg to add cushioning. Roll pt side to side at least every 2 hours using pillows between the knees, behind back, and under top arm. When boosting pt up in bed, lift the pt completely off the mattress using a chux or pull sheet. Do Not slide the pt up. Can ask pt to use legs for assistance. Keep pt in low warren's position with legs raised while on back to help prevent pt sliding down in bed. While pt is in chair, use a foam or air cushion in chair. Have pt readjust position at least every 30 minutes while sitting by having legs up versus down, pillow to tilt from side to side. Encourage high protein snacks. Physcian/Nurse Practioner Notified: Yes Referrals: Dietary and Surgeon (Discussed with Hospitalist) Treatment Time Time Total Time Spent with Patient: 60 minutes
--- NOTE | 2024-07-12 13:32 | PT.INTREAT ---
PT Notes Visit Reasons: Sepsis, UTI with MRSA, CHUCK, .... Physical Therapy Treatment Note Date:07/12/2024 Precautions: Fall. Activity as tolerated. CONTACT PRECAUTIONS IN PLACE. Subjective: Patient needed encouragement to work with PT. With the help of Nurse Dominic, was amenable to being weighed in standing. Needed motivation to sit up on bedside chair for a late lunch today. Appearedfatigue. Son's presence helped with today's participation. Per nurse Rupert, patient refused most of his morning medications. Objective: General Observation: Cachexic. Resting in bed. IV access through L UE. Mckeon catheter in place. Wound dressing over sacral decubitus replaced by Nurse Mojgan, antonietta and nola noted with periphery of wound dark pink in color. telemtry monitoring in place. Mental Status: Alert and oriented as to person and place. Able to pay attention but required a longer time for responses. Pain: As above Vital Signs: Closely monitored by nursing staff Bed Mobility/Transfers: Minimal cueing provided for use of B hands as needed for support, movement sequence, AD management, and posture to reduce fall risk and minimize pain report Supine to sit minimal assist Sit to stand minimal assist with FWW Stand to sit with minimal assist with FWW Bed to reclining chair minimal assist with FWW Gait: 8 steps with use of FWW with minimal assist and minimal verbal cueing for safe limb advancement, hand placement, AD management, and posture to minimize pain report and reduce fall risk. No LOB. No SOB. Fatigued after short activity. Balance: Static Sitting: Normal Dynamic Sitting: Normal Static Standing: Fair Dynamic Standing: Poor Assessment: Continues to present with functional mobility decline needing the assitance of 1 for transfers and in-room ambulation. Barriers to achieving functional goals: limited activity tolerance, decreased motivation, poor oral intake, unstageable decubitus ulcer on sacral and L gluteal areas. Provided patient with seat cushion to minimize further skin breakdown on sacral and L gluteal decubitus. Goals: Goals X1 week 1. Supine-Sit independent 2. Sit-Supine independent 3. Sit-Stand independent 4. Stand-Sit independent with FWW 5. Bed-Chair independent with FWW 6. Chair-Bed independent with FWW 7. Independent gait on level surface with use of FWW for at least 300 feet without report of pain nor dyspnea 8. Independent stair negotiation while holding onto B rails for at least 3 steps without report of pain nor dyspnea 9. Independent with home exercise program 10. Good static and dynamic standing balance/tolerance Plan of Care/Treatment Plan: 1-2x/day, 7 days/week x 1 week. Plan of care has been reviewed with the MEASUREMENT OPERATOR providing the service under Physical Therapy direction. Initiate Physical Therapy intervention for pain management as needed, strengthening, bed mobility, transfers, gait, stairs, balance training, and use of assistive device. DISCHARGE RECOMMENDATIONS: [] Home with no services [] [] Home with services [specify] [] Home with outpatient PT [] [] SNF for continued rehabilitation [] [] Nursing Home Care [] [] SNF versus LTC based on ability to participate and progress [] [X] Short-term rehab vs. HH PT based on progress towards goals TREATMENT CODE/TIME: 57151 x 23 minutes for 1 unit (13:32-13:55).
[2024-07-12] MEDS: Collagenase 30 GM TUBE TP (14:48)
[2024-07-12 15:08] VITALS: BP 91/63; PULSE 82; RESP 16; TEMP 36.2; O2SAT 99
--- NOTE | 2024-07-12 17:07 | W.PALPGNOTE ---
Date of service: 07/12/24 Time of Service: 15:00 Assessment and Plan Assessment and plan (1) Delirium: Status: Acute (2) Sepsis due to methicillin resistant Staphylococcus aureus (MRSA): Status: Acute (3) Sacral decubitus ulcer: Status: Chronic Qualifiers: Pressure injury stage: stage 3 Qualified Code(s): L89.153 - Pressure ulcer of sacral region, stage 3 (4) Seizure disorder as sequela of cerebrovascular accident: Status: Chronic (5) Abnormal weight loss: Status: Acute (6) Recurrent UTI: Status: Acute (7) Failure to thrive in adult: Status: Acute (8) Palliative care encounter: Status: Acute Assessment and plan: PC will continue to be available for consult or direct patient care, evaluation, through this hospitalization if discharged home on hospice, strongly recommended hospice program aware to avoid hospice conversations/talk in front of Narcisa (9) Advanced care planning/counseling discussion: Status: Acute Assessment and plan: significant time was spent in Narcisa's room evaluating his capacity for understanding his current health condition and treatment plan. see SARITA exam above; he scored a probably incapable. at this time, I formally recommend all ACP conversations occur with [facility] for decisoin making. As per review with hospitalist, POC could go in one of 3 directions 1. Continue goal of treating current acute illnesses, which will require lab monitoring, potential surgical consult, work up for osteomyelitis, accepting medications for treatment 2. Transition to comfort directed care in hospital, stopping all life sustaining treatment; 3. Discharge home with oral medications, honoring his preferences/refusals as they present - would recommend hospice to help w/symptom management and to keep him home w/further decline Current plan is to see what Narcisa chooses to do tonight and tomorrow morning, regarding medications, labs, etc. Dr. Amaya to review plan with tomorrow. COLST form completed w/correct spelling of [facility] Subjective Subjective Interval history since last seen: Narcisa remains hospitalized at [facility] 2/2 sepsis per staff: This morning he refused all medications, oral and IV; he did eventually take his seizure meds via IV. He appears to be more alert today, answering questions/less confusion compared to previous days. He is expressing paranoia with medications and like people are trying to trick him. spells of confusion, worse at nighttime and in artist model. orientation ebbs and flows. - new concern of potential osteomyletis today, has not had work up for this. he refused labs and cultures this morning. - labs previously trending in the correct direction - wounds: unstageable pressure sore on backside, culture sent, L buttock stage 2; was cooperative w/their care - engaged in PT today - ADL: stand by assist w/transfers; giraldo catheter, step up for eating, eating ind, low appetite, ~25% of meals, no issues chewing/swallowing, nutrition consult placed; refusing hygiene per daughter via CM: intermittently refuses PO meds at home as well. would like COLST from yesterday updated with correct spelling of 's name Narcisa reports he feels suspicious of palliative care, and health care in general, trying to be sneaky or weasely. especially w/medications. he states they sprung new abx on him this morning, which made him skeptical. he does not want hospice, he does not want morphine to hasten his . his concern with going on hospice is that it indicates he is giving up. he would prefer divine intervention. He thinks he is closer to dying than not. he is aware he is losing weight and that he has a low appetite. he has difficulty swallowing pills, he has his entire life he has an aura before seizures and typically can get his intranasal spray before, seizures do not bother him, he is not afraid of having another one. Exam Narrative Exam Narrative: General: sitting in recliner at start of visit, transfers ind w/stand by to bed w/use of walker. requires assistance w/repositioning and gown change HEENT: hearing grossly WNL; normocephalic, atraumatic, temporal wasting present Resp: even and unlabored, speaks slowed sentences w/no changes in breathing. no audible wheeze, no cough Skin: atrophy, dry; did not conduct full skin exam Psych Appearance: grossly normal Speech and Movement: delayed speech and slowed movement Mood: paranoid, labile mood and irritable mood Affect: labile affect, indifferent and blunted Attitude: guarded, avoids eye contact and refuses to answer Thought Process: circumstantial, illogical, impoverished, loose association, perseverating and tangential Thought Content: normal and phobias (medicines, healthcare workers) Insight: poor Judgment: poor Objective Last Vital Signs Temp 97.2 F L 07/12/24 15:08 Pulse 82 07/12/24 15:08 Resp 16 07/12/24 15:08 BP 91/63 L 07/12/24 15:08 Pulse Ox 99 07/12/24 15:08 Laboratory Results - last 24 hr 07/12/24 06:15 WBC 7.57 RBC 3.66 L Hgb 10.8 L Hct 32.7 L MCV 89 D MCH 29.5 MCHC 33.0 RDW 15.3 H Plt Count 122 L MPV 8.6 Sodium 142 Potassium 3.2 L Chloride 105 Carbon Dioxide 30.6 Anion Gap 6.4 BUN 13 Creatinine 0.9 Est GFR (CKD-EPI 2020) 87.42 Glucose 76 Calcium 8.8 Total Bilirubin 0.58 AST 22 ALT 32 Alkaline Phosphatase 103 Total Protein 5.8 L Albumin 2.1 L Objective Narrative Objective Narrative: Aid to Capacity Eval 1. Able to understand medical problem: Unsure - does not state has infection w/o prompting, agrees has antibiotic for infection later. aware losing weight. 2. Able to understand proposed treatment: unsure to no - refusing labs, medications; mistrust of HC - knows antibiotics fight infection. knows need to eat to maintain weight 3. Able to understand alternative proposed treatment: no - does not understand refusing antibiotics means he is not treating infection; does not answer questions about taking vs not taking any medications; answers tangentially - refusing, intermittently, oral and IV meds; refusing repeat labs/cultures 4. Able to understand option of refusing proposed treatment: unsure - he knows he can refuse, he states he will if infection spreads. - he does not want to go on hospice bc that means he is giving up, and does not want medical assisted suicide; - refuses to answer, do you want to be here in hospital or home 5. Able to appreciate reasonably foreseeable consequences of accepting proposed treatment: no - he does not see issue w/refusing treatment plan, blames people trying to be sneaky with him. - refuses monitoring for infection and medications to treat infection, despite stating he knows infection spread to body and lead to 6. Able to appreciate reasonably foreseeable consequences of refusing proposed treatment: unsure - he does state not taking antibiotics means infection spreads and occurs; does not answer if he wants this to happen 7a: persons decision affected by depression: unsure - did not assess depression. he denies depression sxs, recent depression screening w/[facility] 7b: Persons decision affected by delusion/psychosis - yes to unsure - believes palliative care is trying to hasten his , admits paranoia w/medication administration; reported waxing/waning confusion and orientation; Overall impression: probably incapable Comments: Narcisa picks and chooses when he answers and how, he is tangential and perseveration, not answering direct questions consistently. while he is able to answer some surface level questions, he refuses to answer/engage in medically complex questions. further monitoring of his acceptance or refusals in the treatment plan in the next 12 hours may help w/termite technician plan, I recommend consulting with family for decision making, as complex medical decision making is not possible for him at this time
[2024-07-12] MEDS: LINEZOLID 600 MG/300 ML BAG 300 MG IVPB (18:10)
[2024-07-12 19:45] VITALS: BP 134/66; PULSE 72; RESP 17; TEMP 36.7; O2SAT 96
[2024-07-12] MEDS: Acetaminophen 500 MG TAB 1000 MG PO (20:25)
[2024-07-12] MEDS: Melatonin 3 MG TAB PO (23:06)
[2024-07-13] VITALS (7 sets, daily range): BP systolic 101–128; BP diastolic 56–73; PULSE 48–78; RESP 14–16; TEMP 36.2–36.8; O2SAT 92–97
[2024-07-13] MEDS: LINEZOLID 600 MG/300 ML BAG 300 MG IVPB ×2 (06:08→17:24)
[2024-07-13] MEDS: Normal Saline Flush 10 ML SYR IVP ×2 (08:32→19:39)
[2024-07-13] MEDS: NORMAL SALINE IVPB ×2 (08:32→19:39)
[2024-07-13] MEDS: LACOSAMIDE IVPB ×2 (08:32→19:39)
--- NOTE | 2024-07-13 08:54 | CHAPLAIN ---
Narcisa was sitting up having dinner when I visited. I wasn't sure if he remembered me from the evening before, but then he seemed to and mentioned something that we spoke about. Then he told me that needed to talk with my daughter Matheus about palliative care. I explained that I didn't have a daughter involved in palliative care. He may be been thinking about his nurse, Rupert Turcios. Shortly after we began to talk, his and daughter, Bertha, arrived. His Bertha said they were not told that Narcisa had been moved out of the ICU the day before and was upset about this. She accepted an offer of coffee. I left after getting the coffee for Bertha. Narcisa's son, Barrie, may have been here when Narcisa was moved from the ICU to Med/Surg, however Barrie and Bertha do not speak to one another.
[2024-07-13] MEDS: Tamsulosin 0.4 MG CAPCR 0.8 MG PO (09:05)
[2024-07-13] MEDS: Docusate Sodium 100 MG CAP PO ×2 (09:05→19:39)
[2024-07-13] MEDS: Potassium Chloride 10 MEQ TABCR PO (09:05)
[2024-07-13] MEDS: Senna TAB 1 TAB PO ×2 (09:05→19:39)
[2024-07-13] MEDS: Lactobacillus Acidophilus CAP 1 CAP PO (09:05)
[2024-07-13] MEDS: Enoxaparin 40 MG/0.4 ML SYR SC (09:05)
--- NOTE | 2024-07-13 13:45 | W.NUTRFU ---
Date of service: 07/13/24 Time of Service: 01:10 Nutrition Note NOTE: Pt asleep and unarousable to medium voume voice upon visit - did not want to wake him. Has offered supplemental ONS to Narcisa while in ICU with him not caring and declining this option. Myself and kitchen staff working to find palatable options for increasing kcals and protein. Did do better with kitchen-made smoothie with whey protein last night per nursing - will encourage these at least BID and will continue to interview patient on preferred options daily as he has experienced weight loss and has low po intake with current decubitus ulcer wound. ~10kg weight loss noted in last 4 months (~17% of body weight) Estimated energy needs: 1430kcals ([id number]) - recommend 1500kcals minimum for weight gain. minimum of 70g protein (1.5g/kg) to support wound healing. Nutrition intervention: -kitchen will continue to offer higher kcal/protein ONS and meal choices as per patient acceptance, preference -recommend liquid protein concentrate TID for additional 45g protein -recommend discussion of artificial nutrition support is currently meets criteria to benefit from enteral feedings (this was not discussed per COLST form 07/11/24) -Consider appetite stimulant - mirtzapine? Will continue to monitor weight, labs, po intake, ONS acceptance/preference, and follow up with patient daily for any changes. Time Spent in Nutritional Counseling and Treatment: 0
--- NOTE | 2024-07-13 14:11 | PDOC.CMPRO ---
Date of service: 07/13/24 Time of Service: 14:11 Care Management Progress Note Progress Note Text Progress Note Text: Narcisa was sleeping when CM attempted to visit with him today. Per report, he was agreeable to taking some medications today, which was an improvement from yesterday. Per RN, they were able to obtain repeat blood cultures yesterday afternoon as well. His discharge plan is unclear at this time, and will depend on his capacity to make decisions about his care vs his making decisions at his health care agent; home with home health vs hospice is being considered. CM will continue to follow. Discharge Potential Discharge Needs: Other (HH vs Hospice) Anticipated Barriers to Discharge: None Identified Patient/Family Education Needs: Review discharge instructions, discuss [facility] Transportation: EMS Plan: Anticipate Narcisa will discharge home with resumption of HH RN when medically cleared for discharge. [facility]. CM will continue to follow. SDOH(Care Management) Screening Will the Patient Participate in the Screening?: Yes Do you worry about having a steady place to live?: no Problems where you live: no known problems In the past 12 months, have you had to go without electric, gas, oil or water in your home?: no Have you or anyone in your house had to go without enough food to eat?: no Has lack of transportation kept you from medical appointments or from doing things needed for daily living?: no Has anyone in your support network made you feel unsafe for any reason?: no
[2024-07-13] MEDS: Collagenase 30 GM TUBE TP (15:18)
--- NOTE | 2024-07-13 17:21 | PGE_ITS ---
Date of Service Date of service: 07/13/24 Time of Service: 17:21 Assessment and Plan Assessment and plan (1) Sepsis: Start date: 07/07/24 Status: Acute Assessment and plan: -secondary to MRSA UTI and bacteremia -has been on linezolid, but patient refused AM 07/12 but has since accepted medication regimen -repeat blood cultures negative over first 24hrs -will have Palliative readdress goals of care with patient and posible transition to [facility] Qualifiers: Sepsis type: methicillin resistant Staphylococcus aureus Sepsis acute organ dysfunction status: with acute organ dysfunction Severe sepsis acute organ dysfunction type: acute renal failure Acute renal failure type: with other specified pathological lesion Severe sepsis shock status: without septic shock Qualified Code(s): A41.02 - Sepsis due to Methicillin resistant Staphylococcus aureus; R65.20 - Severe sepsis without septic shock; N17.8 - Othe r acute kidney failure (2) Urinary tract infection: Start date: 07/07/24 Status: Acute Assessment and plan: -as notd above -Continue indwelling Mckeon catheter which was exchanged in the ED Qualifiers: Urinary tract infection type: acute cystitis Hematuria presence: with hematuria Qualified Code(s): N30.01 - Acute cystitis with hematuria (3) Sacral decubitus ulcer: Status: Chronic Assessment and plan: -Continue wound care while hospitalized and [facility] with [facility]. Patient is basically bedridden at this time. Qualifiers: Pressure injury stage: stage 3 Qualified Code(s): L89.153 - Pressure ulcer of sacral region, stage 3 (4) Hypertension: Assessment and plan: -Not on outpatient medical therapy at this time with weight loss and decreased activity, low systolic blood pressures on IV fluid resuscitation. Qualifiers: Hypertension type: primary hypertension Qualified Code(s): I10 - Essential (primary) hypertension (5) History of follicular lymphoma: Status: Chronic Assessment and plan: -Not active as well as treatment and surveyed annually. -Recently placed on prednisone and this most likely was for his respiratory status being a daily smoker with COPD now on chronic inhalers. -Will continue methylprednisolone, though per records obtained by pharmacy the patient is not on daily steroid use (6) Prostate cancer: Status: Chronic Assessment and plan: -Status post radiation therapy on annual surveillance with chronic bladder outlet obstruction and indwelling Mckeon catheter. -Mckeon catheter exchanged and UTI being treated. (7) Seizure disorder as sequela of cerebrovascular accident: Status: Chronic Assessment and plan: -Continue antiseizure medications Subjective Subjective Interval history since last seen: Patient states that his bottom hurts from the position that he is sitting in. Otherwise he states that he has no other complaints or concerns at this time. Exam Narrative Exam Narrative: Thin, cachectic appearing older gentleman laying in bed in no acute distress, awake, alert to person and place, heart regular rhythm, lungs clear to auscultation bilaterally, abdomen soft, nontender, nondistended Objective Last Vital Signs Temp 98.2 F 07/13/24 15:21 Pulse 64 07/13/24 15:21 Resp 15 07/13/24 15:21 BP 107/63 07/13/24 15:21 Pulse Ox 96 07/13/24 16:21 Time Spent with Patient Time Spent with Patient: >50 minutes Time was spent: preparing to see the patient(eg.review tests), obtaining and/or reviewing separately otained hiistory, ordering medications,tests, procedures, referring, communicating with other health daytime caregiver, indepentently interpreting results, counseling the patient and care coordination
[2024-07-13] MEDS: Melatonin 3 MG TAB PO (19:39)
[2024-07-14] VITALS (7 sets, daily range): BP systolic 106–136; BP diastolic 65–75; PULSE 60–78; RESP 16–22; TEMP 36–36.8; O2SAT 95–97
[2024-07-14] MEDS: LINEZOLID 600 MG/300 ML BAG 300 MG IVPB ×2 (06:20→18:34)
[2024-07-14] MEDS: LACOSAMIDE IVPB ×2 (08:49→19:54)
[2024-07-14] MEDS: NORMAL SALINE IVPB ×2 (08:49→19:54)
[2024-07-14] MEDS: Enoxaparin 40 MG/0.4 ML SYR SC (08:50)
[2024-07-14] MEDS: Tamsulosin 0.4 MG CAPCR 0.8 MG PO (08:50)
[2024-07-14] MEDS: Cholecalciferol (Vitamin D3) 1,000 UNIT TAB 1000 UNITS PO (08:50)
[2024-07-14] MEDS: Potassium Chloride 10 MEQ TABCR PO (08:50)
[2024-07-14] MEDS: Docusate Sodium 100 MG CAP PO ×2 (08:50→19:55)
[2024-07-14] MEDS: Senna TAB 1 TAB PO ×2 (08:50→19:55)
[2024-07-14] MEDS: Acetaminophen 500 MG TAB 1000 MG PO (08:51)
[2024-07-14] MEDS: Lactobacillus Acidophilus CAP 1 CAP PO (08:51)
--- NOTE | 2024-07-14 15:58 | PCPN_ITS ---
Date of service: 07/14/24 Time of Service: 15:59 Assessment and Plan Assessment and plan (1) Sepsis: Start date: 07/07/24 Status: Acute Assessment and plan: -secondary to MRSA UTI and bacteremia -has been on linezolid -repeat blood cultures negative Qualifiers: Sepsis type: methicillin resistant Staphylococcus aureus Sepsis acute organ dysfunction status: with acute organ dysfunction Severe sepsis acute organ dysfunction type: acute renal failure Acute renal failure type: with other specified pathological lesion Severe sepsis shock status: without septic shock Qualified Code(s): A41.02 - Sepsis due to Methicillin resistant Staphylococcus aureus; R65.20 - Severe sepsis without septic shock; N17.8 - Other acute kidney failure (2) Urinary tract infection: Start date: 07/07/24 Status: Acute Assessment and plan: -as above -Continue indwelling Mckeon catheter which was exchanged in the ED Qualifiers: Urinary tract infection type: acute cystitis Hematuria presence: with hematuria Qualified Code(s): N30.01 - Acute cystitis with hematuria (3) Sacral decubitus ulcer: Status: Chronic Qualifiers: Pressure injury stage: stage 3 Qualified Code(s): L89.153 - Pressure ulcer of sacral region, stage 3 (4) Hypertension: Qualifiers: Hypertension type: primary hypertension Qualified Code(s): I10 - Essential (primary) hypertension (5) History of follicular lymphoma: Status: Chronic Assessment and plan: -Not active (6) Prostate cancer: Status: Chronic Assessment and plan: -Status post radiation therapy on annual surveillance with chronic bladder outlet obstruction and indwelling Mckeon catheter. -Mckeon catheter exchanged and UTI being treated. (7) Seizure disorder as sequela of cerebrovascular accident: Status: Chronic Assessment and plan: -Continue antiseizure medications (8) Advanced care planning/counseling discussion: Status: Acute Assessment and plan: Narcisa was seen for Palliative f/u. He has been seen by Dr. Trinidad and Amanda May NP during his hospitalization. Narcisa was seen briefly in his hospital room. Spoke to his , Darrel, via phone. She reports that he has had confusion since 2019 when he had a CVA. 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 She does not feel that he understands how sick he is. She understands that she will need to help to make decisions for him. Per her report: He thinks he is always right. He does not always listen to what she has to say. He does not like her telling him what to do. She has to cue him to do day to day things. He is able to wash his face and brush his teeth but he needs help with all other tasks. He usually feeds himself, he has been needing more help over the last 2 months. He has been eating very little. He has lost about 20# over the last couple of months. He is weak. He lives a very sedentary lifestyle. He had a urinary catheter prior to coming to the hospital. He has been declining medications here at the hospital and at home prior to this admission. His furnace repairer helper to come in one day per week so she can get out. He cannot be left alone. Discussed hospice, his and she agrees with hospice. His reports that he has some misconceptions about hospice. He thinks if he goes on hospice, they will give him morphine and he will . She thinks he needs hospice. She understands that he is declining. She feels she needs the support of hospice so she can continue to take care of him at home. Discussed GOC/options including: hospice/distresser - stop all treatments either here or at the hospital. hospice/distresser- home on hospice with PO linezolid Full Tx - possibly place PICC and give IV antibiotics here at the hospital, continue more aggressive care. Darrel has concerns about him agreeing to take medications and that he has difficulty with large tablets. Discussed consideration for crushing tabs or using oral suspension. Darrel asked that I call his daughter, Bertha to review all of this. Bertha feels he is not able to make decisions. He is able to understand parts and pieces but not the big picture. Reviewed options with Bertha. Bertha is concerned that he will not take the antibiotics at home as prescribed. Reviewed his overall decline and that he appears to be nearing the end of his life prior to this infection. She will discuss with her mom. They will get back to the team tomorrow. (9) Palliative care encounter: Status: Acute Assessment and plan: over 2 hours spent on this visit including discussing with the team and family members Subjective Subjective Interval history since last seen: Narcisa was seen for Palliative f/u. Narcisa was seen briefly in his hospital room. He had a friend visiting. Spoke to his , Darrel, via phone. She reports that he has had confusion since 2019 when he had a CVA. 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 She does not feel that he understands how sick he is. She understands that she will need to help to make decisions for him. Per her report: He thinks he is always right. He does not always listen to what she has to say. He does not like her telling him what to do. She has to cue him to do day to day things. He is able to wash his face and brush his teeth but he needs help with all other tasks. He usually feeds himself, he has been needing more help over the last 2 months. He has been eating very little. He has lost about 20# over the last couple of months. He is weak. He lives a very sedentary lifestyle. He had a urinary catheter prior to coming to the hospital. He has been declining medications here at the hospital and at home prior to this admission. His furnace repairer helper to come in one day per week so she can get out. He cannot be left alone. Discussed hospice, his and she agrees with hospice. His reports that he has some misconceptions about hospice. He thinks if he goes on hospice, they will give him morphine and he will . She thinks he needs hospice. She understands that he is declining. She feels she needs the support of hospice so she can continue to take care of him at home. Discussed GOC/options including: hospice/distresser - stop all treatments either here or at the hospital. hospice/distresser- home on hospice with PO linezolid Full Tx - possibly place PICC and give IV antibiotics here at the hospital, continue more aggressive care. Darrel has concerns about him agreeing to take medications and that he has difficulty with large tablets. Discussed consideration for crushing tabs or using oral suspension. Darrel asked that I call his daughter, Bertha to review all of this. Bertha feels he is not able to make decisions. He is able to understand parts and pieces but not the big picture. Reviewed options with Bertha. Bertha is concerned that he will not take the antibiotics at home as prescribed. Reviewed his overall decline and that he appears to be nearing the end of his life prior to this infection. She will discuss with her mom. They will get back to the team tomorrow. Exam Narrative Exam Narrative: General: thin, elderly man, laying in bed with HOB elevated. Speech is clear. Respirations appear even and and unlabored. He does not appear to be in acute distress. Objective Last Vital Signs Temp 36.6 C 07/14/24 15:33 Pulse 64 07/14/24 15:33 Resp 20 07/14/24 15:33 BP 117/72 07/14/24 15:33 Pulse Ox 96 07/14/24 15:33
--- NOTE | 2024-07-14 16:57 | PDOC.CMPRO ---
Date of service: 07/14/24 Time of Service: 15:20 Care Management Progress Note Progress Note Text Progress Note Text: Narcisa was sitting up in the bed, talking with his son, when CM met with him today. He was quite ornery this afternoon, finding fault in most everything. That said, his speech and thought process were clear and he remembered my name. Palliative Care was in to see him today, but there was some confusion and his was not present. This was late in the day and CM is not sure of the outcome of that consult. Discharge Potential Discharge Needs: PCP F/U Appt Anticipated Barriers to Discharge: None Identified Plan: Narcisa's discharge plan is still uncertain. He is still receiving IV abx and his goals of care are also uncertain. CM will speak with the family on Wednesday of next week to clarify. SDOH(Care Management) Screening Will the Patient Participate in the Screening?: Yes Do you worry about having a steady place to live?: no Problems where you live: no known problems In the past 12 months, have you had to go without electric, gas, oil or water in your home?: no Have you or anyone in your house had to go without enough food to eat?: no Has lack of transportation kept you from medical appointments or from doing things needed for daily living?: no Has anyone in your support network made you feel unsafe for any reason?: no
--- NOTE | 2024-07-14 16:58 | W.PM.PROGNOT ---
Date of Service Date of service: 07/14/24 Time of Service: 16:58 Assessment and Plan Assessment and plan (1) Sepsis: Start date: 07/07/24 Status: Acute Assessment and plan: -secondary to MRSA UTI and bacteremia -has been on linezolid, but patient refused AM 07/12 but has since accepted medication regimen -repeat blood cultures negative -Palliative Care now meeting with the patient and family regarding possible transition to [facility]/Hospice Qualifiers: Acute renal failure type: with other specified pathological lesion Sepsis acute organ dysfunction status: with acute organ dysfunction Sepsis type: methicillin resistant Staphylococcus aureus Severe sepsis acute organ dysfunction type: acute renal failure Severe sepsis shock status: without septic shock Qualified Code(s): A41.02 - Sepsis due to Methicillin resistant Staphylococcus aureus; R65.20 - Severe sepsis without septic shock; N17.8 - Other acute kidney failure (2) Urinary tract infection: Start date: 07/07/24 Status: Acute Assessment and plan: -as notd above -Continue indwelling Mckeon catheter which was exchanged in the ED Qualifiers: Hematuria presence: with hematuria Urinary tract infection type: acute cystitis Qualified Code(s): N30.01 - Acute cystitis with hematuria (3) Sacral decubitus ulcer: Status: Chronic Assessment and plan: -Continue wound care while hospitalized and [facility]. Patient is basically bedridden at this time. Qualifiers: Pressure injury stage: stage 3 Qualified Code(s): L89.153 - Pressure ulcer of sacral region, stage 3 (4) Hypertension: Assessment and plan: -Not on outpatient medical therapy at this time with weight loss and decreased activity, low systolic blood pressures on IV fluid resuscitation. Qualifiers: Hypertension type: primary hypertension Qualified Code(s): I10 - Essential (primary) hypertension (5) History of follicular lymphoma: Status: Chronic Assessment and plan: -Not active as well as treatment and surveyed annually. -Recently placed on prednisone and this most likely was for his respiratory status being a daily smoker with COPD now on chronic inhalers. -Will continue methylprednisolone, though per records obtained by pharmacy the patient is not on daily steroid use (6) Prostate cancer: Status: Chronic Assessment and plan: -Status post radiation therapy on annual surveillance with chronic bladder outlet obstruction and indwelling Mckeon catheter. -Mckeon catheter exchanged and UTI being treated. (7) Seizure disorder as sequela of cerebrovascular accident: Status: Chronic Assessment and plan: -Continue antiseizure medications Subjective Subjective Interval history since last seen: Patient state that his bottom hurts but less then previous days. Otherwise he states that he has no other complaints or concerns at this time. Exam Narrative Exam Narrative: Thin, cachectic appearing older gentleman laying in bed in no acute distress, awake, alert to person and place, heart regular rhythm, lungs clear to auscultation bilaterally, abdomen soft, nontender, nondistended Objective Last Vital Signs Temp 97.9 F 07/14/24 15:33 Pulse 64 07/14/24 15:33 Resp 20 07/14/24 15:33 BP 117/72 07/14/24 15:33 Pulse Ox 96 07/14/24 15:33 Time Spent with Patient Time Spent with Patient: >50 minutes Time was spent: preparing to see the patient(eg.review tests), obtaining and/or reviewing separately otained hiistory, ordering medications,tests, procedures, referring, communicating with other health healthcare corporate account director, indepentently interpreting results, counseling the patient and care coordination
[2024-07-14] MEDS: Melatonin 3 MG TAB PO (19:55)
[2024-07-14] MEDS: Normal Saline Flush 10 ML SYR IVP (19:56)
[2024-07-15 03:05] VITALS: BP 128/71; PULSE 56; RESP 16; TEMP 36.8; O2SAT 98
[2024-07-15] MEDS: LINEZOLID 600 MG/300 ML BAG 300 MG IVPB ×2 (05:14→18:00)
[2024-07-15] MEDS: Acetaminophen 500 MG TAB 1000 MG PO (05:34)
[2024-07-15 07:15] VITALS: BP 130/62; PULSE 56; RESP 18; TEMP 36.2; O2SAT 96
[2024-07-15] MEDS: Docusate Sodium 100 MG CAP PO (07:37)
[2024-07-15] MEDS: Enoxaparin 40 MG/0.4 ML SYR SC (07:37)
[2024-07-15] MEDS: Tamsulosin 0.4 MG CAPCR 0.8 MG PO (07:38)
[2024-07-15] MEDS: Potassium Chloride 10 MEQ TABCR PO (07:38)
[2024-07-15] MEDS: Lactobacillus Acidophilus CAP 1 CAP PO (07:38)
[2024-07-15] MEDS: LACOSAMIDE IVPB ×2 (08:51→20:30)
[2024-07-15] MEDS: NORMAL SALINE IVPB ×2 (08:51→20:30)
[2024-07-15] MEDS: Senna TAB 1 TAB PO (09:10)
[2024-07-15 11:23] VITALS: BP 104/69; PULSE 62; RESP 18; TEMP 36.6; O2SAT 94
[2024-07-15 15:10] VITALS: BP 109/61; PULSE 63; RESP 17; TEMP 36.6; O2SAT 95
[2024-07-15 19:32] VITALS: BP 103/66; PULSE 65; RESP 17; TEMP 36.7; O2SAT 95
[2024-07-15] MEDS: Normal Saline Flush 10 ML SYR IVP (20:30)
[2024-07-16 05:08] VITALS: BP 130/65; PULSE 61; RESP 17; TEMP 36.5; O2SAT 94
[2024-07-16] MEDS: Normal Saline Flush 10 ML SYR IVP ×3 (05:12→20:17)
[2024-07-16] MEDS: LINEZOLID 600 MG/300 ML BAG 300 MG IVPB ×2 (05:14→18:20)
--- NOTE | 2024-07-16 05:43 | NUR.NOTE ---
Patient refused assessments, and bed linens change.
--- NOTE | 2024-07-16 06:26 | PGE_ITS ---
Date of Service Date of service: 07/15/24 Time of Service: 17:00 Assessment and Plan Assessment and plan (1) Sepsis: Start date: 07/07/24 Status: Acute Assessment and plan: -secondary to MRSA UTI and bacteremia -has been on linezolid, but patient refused AM 07/12 but has since accepted medication regimen -repeat blood cultures negative -Palliative Care discussed with Patients regarding Hospice to which she was receptive but wished for it to also be discussed with the patients Frank who was hesitant -Attempted to reach out to the daughter today but was unable to discuss further -Recommended further discussions with the and daughter surrounding transition to Hospice Qualifiers: Sepsis type: methicillin resistant Staphylococcus aureus Sepsis acute organ dysfunction status: with acute organ dysfunction Severe sepsis acute organ dysfunction type: acute renal failure Acute renal failure type: with other specified pathological lesion Severe sepsis shock status: without septic shock Qualified Code(s): A41.02 - Sepsis due to Methicillin resistant Staphylococcus aureus; R65.20 - Severe sepsis without septic shock; N17.8 - Other acute kidney failure (2) Urinary tract infection: Start date: 07/07/24 Status: Acute Assessment and plan: -as notd above -Continue indwelling Mckeon catheter which was exchanged in the ED Qualifiers: Urinary tract infection type: acute cystitis Hematuria presence: with hematuria Qualified Code(s): N30.01 - Acute cystitis with hematuria (3) Sacral decubitus ulcer: Status: Chronic Assessment and plan: -Continue wound care while hospitalized and [facility]. Patient is basically bedridden at this time. Qualifiers: Pressure injury stage: stage 3 Qualified Code(s): L89.153 - Pressure ulcer of sacral region, stage 3 (4) Hypertension: Assessment and plan: -Not on outpatient medical therapy at this time with weight loss and decreased activity, low systolic blood pressures on IV fluid resuscitation. Qualifiers: Hypertension type: primary hypertension Qualified Code(s): I10 - Essential (primary) hypertension (5) History of follicular lymphoma: Status: Chronic Assessment and plan: -Not active as well as treatment and surveyed annually. -Recently placed on prednisone and this most likely was for his respiratory status being a daily smoker with COPD now on chronic inhalers. -Will continue methylprednisolone, though per records obtained by pharmacy the patient is not on daily steroid use (6) Prostate cancer: Status: Chronic Assessment and plan: -Status post radiation therapy on annual surveillance with chronic bladder outlet obstruction and indwelling Mckeon catheter. -Mckeon catheter exchanged and UTI being treated. (7) Seizure disorder as sequela of cerebrovascular accident: Status: Chronic Assessment and plan: -Continue antiseizure medications Subjective Subjective Interval history since last seen: Patient state that his bottom hurts but less then previous days. Otherwise he states that he has no other complaints or concerns at this time. Exam Narrative Exam Narrative: Thin, cachectic appearing older gentleman laying in bed in no acute distress, awake, alert to person and place, heart regular rhythm, lungs clear to auscultation bilaterally, abdomen soft, nontender, nondistended Objective Last Vital Signs Temp 97.7 F 07/16/24 05:08 Pulse 61 07/16/24 05:08 Resp 17 07/16/24 05:08 BP 130/65 07/16/24 05:08 Pulse Ox 94 07/16/24 05:08 Time Spent with Patient Time Spent with Patient: >50 minutes Time was spent: preparing to see the patient(eg.review tests), obtaining and/or reviewing separately otained hiistory, ordering medications,tests, procedures, referring, communicating with other health animal caretaker supervisor, indepentently interpreting results, counseling the patient and care coordination
[2024-07-16 07:16] VITALS: BP 126/76; PULSE 61; RESP 18; TEMP 36.4; O2SAT 100
[2024-07-16] MEDS: Tamsulosin 0.4 MG CAPCR 0.8 MG PO (08:41)
[2024-07-16] MEDS: Potassium Chloride 10 MEQ TABCR PO (08:41)
[2024-07-16] MEDS: Docusate Sodium 100 MG CAP PO (08:41)
[2024-07-16] MEDS: Senna TAB 1 TAB PO (08:41)
[2024-07-16] MEDS: Lactobacillus Acidophilus CAP 1 CAP PO (08:41)
[2024-07-16] MEDS: LACOSAMIDE IVPB ×2 (08:42→20:16)
[2024-07-16] MEDS: NORMAL SALINE IVPB ×2 (08:42→20:16)
[2024-07-16] MEDS: Cholecalciferol (Vitamin D3) 1,000 UNIT TAB 1000 UNITS PO (08:42)
--- NOTE | 2024-07-16 10:55 | NUR.NOTE ---
Nursing Note: Patient refused wound assessment and hygiene this morning. Will try again. Reported 5/10 pain in Buttocks but refused pain intervention. Will continue to monitor.
[2024-07-16 11:51] VITALS: BP 118/65; PULSE 62; RESP 18; TEMP 36.5; O2SAT 95
--- NOTE | 2024-07-16 12:29 | W.PM.PROGNOT ---
Date of Service Date of service: 07/16/24 Time of Service: 10:50 Assessment and Plan Assessment and plan (1) Sepsis: Start date: 07/07/24 Status: Acute Assessment and plan: -secondary to MRSA bacteremia, source is sacral ulcer -has been on linezolid, patient refused AM 07/12, but has since accepted medication -repeat blood cultures again MRSA positive 07/12, will repeat with next labs Continue linazolid Qualifiers: Sepsis type: methicillin resistant Staphylococcus aureus Sepsis acute organ dysfunction status: with acute organ dysfunction Severe sepsis acute organ dysfunction type: acute renal failure Acute renal failure type: with other specified pathological lesion Severe sepsis shock status: without septic shock Qualified Code(s): A41.02 - Sepsis due to Methicillin resistant Staphylococcus aureus; R65.20 - Severe sepsis without septic shock; N17.8 - Other acute kidney failure (2) Urinary tract infection: Start date: 07/07/24 Status: Acute Assessment and plan: Culture negative, pyuria a/w indwelling catheter, no true UTI. Qualifiers: Urinary tract infection type: acute cystitis Hematuria presence: with hematuria Qualified Code(s): N30.01 - Acute cystitis with hematuria (3) Sacral decubitus ulcer: Status: Chronic Assessment and plan: -Continue wound care while hospitalized and [facility]. Patient is basically bedridden at this time, no change. Encouraged nutritional intake. Qualifiers: Pressure injury stage: stage 3 Qualified Code(s): L89.153 - Pressure ulcer of sacral region, stage 3 (4) Prostate cancer: Status: Chronic Assessment and plan: -Status post radiation therapy on annual surveillance with chronic bladder outlet obstruction and indwelling Mckeon catheter. -Mckeon catheter exchanged on admission. (5) Seizure disorder as sequela of cerebrovascular accident: Status: Chronic Assessment and plan: -Continue antiseizure medications (6) DVT prophylaxis: Status: Acute Assessment and plan: SCDs and enoxaparin. (7) Constipation: Status: Acute Assessment and plan: Discussed bowel regimen with RN. (8) Smoker: Status: Chronic Assessment and plan: NRT patch prn (9) Advanced care planning/counseling discussion: Status: Acute Assessment and plan: -Palliative Care discussed with Patients regarding Hospice to which she was receptive but wished for it to also be discussed with the patients Frank who was hesitant -Recommended further discussions with the and daughter surrounding transition to Hospice. -I called after getting okay from Mr. Eduardo. She has talked with their 3 kids, they are worried about him not swallowing pills at home. Has some liquid medication, but still spits medication out if he went home. They prefer him to continue IV antibiotics in hospital if possible. (10) Hypokalemia: Status: Resolved Assessment and plan: follow in morning labs Subjective Subjective Patient reports: no new complaints and tolerating a regular diet; denies diarrhea, shortness of breath or fever Interval history since last seen: 24 hr: no acute events, patient declining medication at times Blood culture MRSA + He feels okay. He did eat some breakfast, appetite okay. No BM in 2-3 days. Only pain is around the area of his wound, feels raw. Exam Narrative Exam Narrative: Thin, cachectic appearing older gentleman laying in bed in no acute distress, awake, alert to person and place, heart regular rhythm, lungs clear to auscultation bilaterally, abdomen soft, nontender, nondistended. Sacral wound dressed, bandage clean without exudate or visible erythema (see wound notes). Ext no edema, not tender. Objective Last Vital Signs Temp 36.5 C 07/16/24 11:51 Pulse 62 07/16/24 11:51 Resp 18 07/16/24 11:51 BP 118/65 07/16/24 11:51 Pulse Ox 95 07/16/24 11:51 Time Spent with Patient Time Spent with Patient: >50 minutes Time was spent: preparing to see the patient(eg.review tests), obtaining and/or reviewing separately otained hiistory, ordering medications,tests, procedures, referring, communicating with other health day care center director, indepentently interpreting results, counseling the patient and care coordination
[2024-07-16 15:43] VITALS: BP 106/61; PULSE 69; RESP 17; TEMP 36.2; O2SAT 92
[2024-07-16] MEDS: Collagenase 30 GM TUBE TP (15:53)
[2024-07-16] MEDS: oxyCODONE 5 MG TAB PO (16:33)
[2024-07-16 20:22] VITALS: BP 116/68; PULSE 61; RESP 20; TEMP 36.4; O2SAT 99
--- NOTE | 2024-07-17 | DI.MRI_ITS ---
Exam(s) MR PELVIS WO/W EXAM: MR PELVIS WO/W CLINICAL HISTORY: persistent MRSA bacteremia, sacral ulcer. TECHNIQUE: Multi glands MRI scan was performed on 1.5 leia unit with both pre and post contrast inf used sequences. CONTRAST MATERIAL: Intravenous: Dotarem 9 mL venous Oral: None COMPARISON: CT CT ABDOMEN PELVIS WO from 05/24/2024 CR XR HIP LT AP LAT ONLY from 05/29/2024 FINDINGS: PELVIS: SKIN-SUBCUTANEOUS: There is some signal abnormality in the subcutaneous fat over the coccyx region.. Suspect ulcer. OSSEOUS:There is significant signal abnormality in the segments of the coccyx consisting of T2 bright signal as well as some hypo intense marrow signal on non fat sat T1 images. There is prominent enha ncement throughout the coccyx and lower most sacrum following contrast injection. These findings are consistent with osteomyelitis of the lower sacrum-coccyx. There is no abnormal fluid collection wit hin the pelvis itself. There is no significant signal abnormality at the level of the ischial tuberosities. URINARY BLADDER: There is a Mckeon catheter in the urinary bladder. IMPRESSION: 1. Findings are consistent with osteomyelitis of all of the segments of the coccyx up to and includin g its junction with the sacrum. RADIATION DOSE DELIVERED: Total DLP DATA REPOSITORY: All CT scans at this facility are submitted to the National Radiology Data Registry (NRDR) Dose Index Registry (DIR) with the [employer] (ACR). RADIATION OPTIMIZATION: All CT scans at this facility use at least one of these dose optimization te chniques: automated exposure control; mA and/or kV adjustment per patient size (includes targeted exa ms where dose is matched to clinical indication); or iterative reconstruction.
[2024-07-17 00:25] VITALS: BP 133/71; PULSE 52; RESP 20; TEMP 36.6; O2SAT 96
[2024-07-17 04:30] VITALS: BP 115/59; PULSE 54; RESP 20; TEMP 36.3; O2SAT 96
[2024-07-17] MEDS: LINEZOLID 600 MG/300 ML BAG 300 MG IVPB (05:56)
[2024-07-17] MEDS: Normal Saline Flush 10 ML SYR IVP ×6 (05:57→20:49)
[2024-07-17 06:58] LABS: Abs Immature Grans 0.06 10^3/uL (0.0-0.06); Absolute Basophil Count 0.02 10^3/uL (0.0-0.2); Absolute Eosinophil Count 0.25 10^3/uL (0.0-0.7); Absolute Lymphocyte Count 0.83 10^3/uL (1.2-3.4); Absolute Monocyte Count 0.31 10^3/uL (0.1-0.8); Absolute Neutrophil Count 6.09 10^3/uL (1.2-6.7); Basophils % 0.3 %; Eosinophils % 3.3 %; HCT 30.4 % (40.0-50.0); HGB 9.8 g/dL (13.5-17.5); Immature Grans % 0.8 %; MCH 29.3 pg (27.0-33.0); MCHC 32.2 % (32.0-36.0); MCV 91 fL (80-95); MPV 8.6 fL (8.0-11.0); Monocytes % 4.1 %; Neutrophils % 80.5 %; Platelet Count 131 10^3/uL (130-400); RBC 3.35 10^6/uL (4.36-5.78); RDW 15.4 % (11.8-14.1); RDW-SD 51.2 fL; WBC 7.56 10^3/uL (4.4-10.8)
[2024-07-17 07:05] LABS: Anion Gap 4.7 mmol/L (3-11); BUN 10 mg/dL (7-18); CO2 30.3 mmol/L (21.0-32.0); CREATININE 0.9 mg/dL (0.70-1.30); Calcium 8.8 mg/dL (8.5-10.1); Chloride 102 mmol/L (98-107); Estimated GFR 87.42 (mL/min/1.73m2); Glucose 114 mg/dL (74-106); Magnesium 1.5 mg/dL (1.8-2.4); Potassium 3.4 mmol/L (3.5-5.1); Sodium 137 mmol/L (136-145)
[2024-07-17 07:41] VITALS: BP 120/71; PULSE 57; RESP 21; TEMP 36.7; O2SAT 98
--- NOTE | 2024-07-17 07:44 | PCNE_ITS ---
Date of service: 07/17/24 Time of Service: 07:44 History of Present Illness History of Present Illness Chief Complaint: sepsis Narrative: From H and P History of Present Illness History of Present Illness Chief Complaint: Change in urine color and chronic Mckeon catheter and increased confusion. Narrative: This is a 78-year-old male patient goes to the [place] chronically and is a DNR and they are exposed to agent orange please status post CVA with hemorrhage including subarachnoid hemorrhage and subdural hematoma, seizures secondary to CVA, prostate cancer status post radiation therapy on surveillance only with bladder outlet obstruction and chronic indwelling Mckeon catheter with recurrent UTIs, follicular lymphoma treated in 2016 on annual surveillance, A with stable 4.6 cm thoracic aortic aneurysm, PTSD secondary to work time activity with depression and recurrent UTI with indwelling Mckeon catheter who has had changes in urine color recently and more confusion than his baseline. He chronically does have some mild memory loss and dementia from his vascular disease. He has had no fever or chills he denies any abdominal pain or flank pain. He also denies chest pain or cough. He does smoke daily. He was placed on methylprednisolone recently most likely for respiratory symptoms but he does not remember for what the treatment was prescribed. He is a DNI and protein palliative care with question of initiating hospice soon. He is very weak and does not ambulate without full assist and does have breakdown of his coccyx and sacral area which is treated with topical agents. This is not appear to be infected at this time. Patient was evaluated in the ED and found to have sepsis syndrome with acute kidney injury and hypokalemia. He was initiated on IV fluids for replenishment and continued to have a soft blood pressure but MAP above 65. He was not requiring pressor agents. He was initiated on treatment for UTI which was MRSA last culture with allergies to cephalosporins. Ciprofloxacin IV with linezolid IV were initiated will be continued. Cultures were obtained with blood cultures and urine cultures. Patient is a DNI as mentioned but continues to want CPR. He is a fair historian with his baseline confusion. Interim Hx: I went in to see Mr. Eduardo. He immediately said that I was 1 of those people who is trying to get him into hospice. He was not interested in hospice. He immediately said that I was 1 of those slick people turn things around. He said he did not want to talk about comfort care. He was not interested in talking about hospice. He was not interested in talking about how he would like to live the remainder of his life. He did say that he understands that he will be dying soon. He was not interested in discussing where this would take place, whether he would want to continue with aggressive treatment, etc. Consults Consult date: 07/17/24 Requesting physician: Tuan Amaya Assessment and Plan Assessment and plan (1) Advanced care planning/counseling discussion: Status: Acute (2) Failure to thrive in adult: Status: Acute (3) Sepsis due to methicillin resistant Staphylococcus aureus (MRSA): Status: Acute (4) Sacral decubitus ulcer: Status: Chronic Assessment and plan: He is clearly suspicious of palliative care. He is not interested in hospice. He does understand that all of his comorbidities are leading towards . He had no interest in talking to me about how he would want to spend his time for the time he has left He was very clear that his and daughter could make decisions for him. He is content that they make decisions in his best interest. He states that there is a meeting today in the afternoon. Dr. Maloney was not certain about this. It may be anticipating my visit which I did oncology pharmacist. I will call both and daughter and see if they are able to make it today. Due to his high suspicion and caution, I am not certain how much he will share with me Spoke with Darrel (). It is her understanding that he would be getting the PICC line placed. Her understanding is that he would either go home or a group home. In the past he had to go to a group home, it didn't go well. She is going to talk with Bertha (daughter) to discuss around 4 PM today at [facility] Spoke with Bertha. She spoke of the dynamic between brother and her. She agrees to be there at 4. ADDENDUM: I met with Narcisa's , daughter and, son and care management Susy. We discussed Narcisa's present condition as well as their interpretation of his wants and needs. They had several concerns about his care. They were worried about his glucosamine/chondroitin and nasal spray. They had much to say about previous care at a previous facility. In the end they did state that he wants to be alive, would want aggressive treatment at this point, and he wants to be home. We worked with defining what that would be like. Concerns about IV antibiotics for long-term. Etc. He is presently undergoing more investigation regarding his and our MSSA bacteremia and possible osteomyelitis. This includes echo, MRI, and starting Vanco. The plan is that after he is MRSA negative by blood cultures, he will most likely start on IV antibiotics and hopefully be able to be discharged to home. All participants were asked if they had any questions. Questions were answered to the best we could. Bertha was quite concerned that after the, if her father refused different treatments, he would be able to do so even though they with the decision makers. We did explain [place] law. A total of 125 minutes was spent discussing patient's present condition, his wishes, and letting the hospital staff understand the family's concerns I have spent more than 50% of time in counseling with this patient's family Qualifiers: Pressure injury stage: stage 3 Qualified Code(s): L89.153 - Pressure ulcer of sacral region, stage 3 Review of Systems Narrative: He told me that he hurt all over and he is tired of the pain. He has not been out of bed on his own for quite some time. He does not know if he still can. PFSH All Active Problems (Updated 07/16/24 @ 13:05 by Damian Arita) Constipation (Acute) Delirium (Acute) Sepsis due to methicillin resistant Staphylococcus aureus (MRSA) (Acute) Sacral decubitus ulcer (Chronic) Urinary tract infection (Acute) Sepsis (Acute) Advanced care planning/counseling discussion (Acute) Palliative care encounter (Acute) Abnormal weight loss (Acute) Recurrent UTI (Acute) History of follicular lymphoma (Chronic) Failure to thrive in adult (Acute) History of posttraumatic stress disorder (PTSD) (Chronic) Tooth avulsion (Acute) DVT prophylaxis (Acute) Seizure disorder as sequela of cerebrovascular accident (Chronic) s/p CVA/hemorrhage, h/o breakthrough in setting of UTI/fever Smoker (Chronic) Atherosclerosis of artery (Acute) Abdominal aortic aneurysm (AAA) (Chronic) Thoracic aortic aneurysm (Acute) Thoracic aorta atherosclerosis (Acute) Closed left hip fracture (Acute) s/p percutaneous screw fixation (02/28/24) Prostate cancer (Chronic) S/P Radiation therapy. Currently under surveillance with very low but detectible PSA (05/2024). Dr. Nathan. Medical History Other specified counseling Nicotine dependence, cigarettes, uncomplicated Other types of follicular lymphoma, 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 Major depressive disorder, single episode Leakage of other urinary catheter, initial encounter Family history of breast cancer Essential (primary) hypertension Delirium due to known physiological condition Contact with and (suspected) exposure to other hazardous substances Bradycardia, unspecified Closed fracture of left proximal humerus (01/10/23) CVA (cerebral vascular accident) Lymphoma Hypertension Surgical History History of craniotomy for brain bleed Family History Father Personal history of malignant neoplasm prostate cancer Social History Smoking/Tobacco Use Status: Current every day Tobacco Type: cigarettes Smoking packs per day: 1 Smoking cigarettes per day: 20.0 Smoking risk assessment performed?: Yes Alcohol Intake: former Drug use: Never Substance use type: does not use Housing: house Current gender identity: male Do you feel safe at home: Yes Do you feel safe in your relationship?: Yes Exam Narrative Exam Narrative: He did allow me to listen to his heart and actually made a joke saying that I should try to find one in him. Ironically it was very hard to auscultate cardiac sounds. I could hear a faint murmur lungs not much cooperation during this exam. Abdomen nontender. Mood very grumpy and noncooperative Results Last Vital Signs Temp 98.1 F 07/17/24 07:41 Pulse 57 L 07/17/24 07:41 Resp 21 07/17/24 07:41 BP 120/71 07/17/24 07:41 Pulse Ox 98 07/17/24 07:41 Labs 07/17/24 06:25 07/17/24 06:25 Labs: Laboratory Results - last 24 hr 07/17/24 06:25 WBC 7.56 RBC 3.35 L Hgb 9.8 L Hct 30.4 L MCV 91 MCH 29.3 MCHC 32.2 RDW 15.4 H Plt Count 131 MPV 8.6 Immature Gran % 0.8 Neutrophils % 80.5 Lymphocytes % 11.0 Monocytes % 4.1 Eosinophils % 3.3 Basophils % 0.3 Nucleated RBC % 0.0 Absolute Neutrophils 6.09 Absolute Lymphocytes 0.83 L Absolute Monocytes 0.31 Absolute Eosinophils 0.25 Absolute Basophils 0.02 Sodium 137 Potassium 3.4 L Chloride 102 Carbon Dioxide 30.3 Anion Gap 4.7 BUN 10 Creatinine 0.9 Est GFR (CKD-EPI 2020) 87.42 Glucose 114 H Calcium 8.8 Magnesium 1.5 L Imaging Chest x-ray: report reviewed Time Spent Time Spent with Patient Time Spent(min): 125
--- NOTE | 2024-07-17 08:36 | CMPROGNOTE_ITS ---
Date of service: 07/17/24 Time of Service: 08:36 Care Management Progress Note Progress Note Text Progress Note Text: Narcisa's blood cultures from 07/12 were still positive for MRSA and new cultures were drawn this morning. When the bacteremia clears he will have a PICC inserted and CM will begin the process of coordinating care for home infusions. A follow up Palliative Care meeting was held this afternoon with Dr. Andrews, MADI Susy, Darrel, daughter Bertha and son. The focus of the conversation was goals of care. Narcisa has MRSA bacteremia, likely secondary to a sacral decubitus ulcer. It has not been clear if the patient and family wished to proceed with aggressive treatment or transition to a comfort focused model of care. All of the family members verbalized that they believe that Narcisa wants to live and would want to be treated fully. With that question answered, additional studies were ordered to determine if he has osteomyelitis (MRI) or endocarditis (ECHO). Either condition could affect the recommended length of treatment. The family requested that when he is cleared to have the PICC inserted, they would like Bertha to be present in case Narcisa is reluctant to have to procedure. They have a close relationship and he is more likely to comply if she is in support of the procedure and is present to encourage him. Discharge Potential Discharge Needs: PCP F/U Appt Anticipated Barriers to Discharge: Other (indecisive family decision making) Patient/Family Education Needs: Review discharge instructions, discuss Ask Me Three Transportation: Other (to be determined by disposition) Plan: Anticipate Narcisa will be discharged home with new home health services for [facility] to support home infusions for IV antibiotics. He will follow up with his community providers and plan of care and transport with family. CM will follow and continue to support discharge planning. l SDOH(Care Management) Screening Will the Patient Participate in the Screening?: Yes Do you worry about having a steady place to live?: no Problems where you live: no known problems In the past 12 months, have you had to go without electric, gas, oil or water in your home?: no Have you or anyone in your house had to go without enough food to eat?: no Has lack of transportation kept you from medical appointments or from doing things needed for daily living?: no Has anyone in your support network made you feel unsafe for any reason?: no
[2024-07-17] MEDS: Tamsulosin 0.4 MG CAPCR 0.8 MG PO (09:15)
[2024-07-17] MEDS: Lactobacillus Acidophilus CAP 1 CAP PO (09:15)
[2024-07-17] MEDS: Enoxaparin 40 MG/0.4 ML SYR SC (09:16)
[2024-07-17] MEDS: Potassium Chloride 10 MEQ TABCR PO (09:16)
[2024-07-17] MEDS: NORMAL SALINE IVPB ×2 (09:17→19:03)
[2024-07-17] MEDS: LACOSAMIDE IVPB ×2 (09:17→19:03)
[2024-07-17 11:13] VITALS: BP 100/60; PULSE 71; RESP 22; TEMP 36.3; O2SAT 96
--- NOTE | 2024-07-17 12:58 | W.PM.PROGNOT ---
Date of Service Date of service: 07/17/24 Time of Service: 12:58 Assessment and Plan Assessment and plan (1) Sepsis: Start date: 07/07/24 Status: Acute Assessment and plan: -secondary to MRSA bacteremia, source is sacral ulcer -has been on linezolid, patient refused AM 07/12, but has since accepted medication -repeat blood cultures again MRSA positive 07/12 (1/2 bottles, did not report until 07/16), repeated 07/17 am -Given lack of clearence of bacteremia after 5 days on Linazolid, no plans for oral therapy, will change to vancomycin. -with persistent infection, need to look for endocarditis and osteo Qualifiers: Sepsis type: methicillin resistant Staphylococcus aureus Sepsis acute organ dysfunction status: with acute organ dysfunction Severe sepsis acute organ dysfunction type: acute renal failure Acute renal failure type: with other specified pathological lesion Severe sepsis shock status: without septic shock Qualified Code(s): A41.02 - Sepsis due to Methicillin resistant Staphylococcus aureus; R65.20 - Severe sepsis without septic shock; N17.8 - Other acute kidney failure (2) Sacral decubitus ulcer: Status: Chronic Assessment and plan: -This is the apparent source of the bacteremia -We are not headed towards hospice/[employer]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 - Patient is basically bedridden at this time, work on offloading. Encouraged improved nutritional intake. Qualifiers: Pressure injury stage: stage 3 Qualified Code(s): L89.153 - Pressure ulcer of sacral region, stage 3 (3) Prostate cancer: Status: Chronic Assessment and plan: -Status post radiation therapy on annual surveillance with chronic bladder outlet obstruction and indwelling Mckeon catheter. -Mckeon catheter exchanged on admission. (4) Seizure disorder as sequela of cerebrovascular accident: Status: Chronic Assessment and plan: -Continue antiseizure medications, getting IV as he doesn't tolerate oral well. (5) DVT prophylaxis: Status: Acute Assessment and plan: SCDs and enoxaparin. (6) Constipation: Status: Acute Assessment and plan: Discussed bowel regimen again with RN. (7) Smoker: Status: Chronic Assessment and plan: NRT patch prn (8) Advanced care planning/counseling discussion: Status: Acute Assessment and plan: -Palliative Care discussed with Patients regarding Hospice, but patient not interested at this point. -Case discussed with after getting okay from Mr. Eduardo. He is not swallowing pills or liquids well at home. They prefer him to continue IV antibiotics in hospital, he will likely need prolonged IV therapy with vancomycin for MRSA. -Appreciated Dr. Andrews's input today (9) Hypokalemia: Status: Resolved Assessment and plan: follow in morning labs Subjective Subjective Patient reports: no new complaints; denies diarrhea, nausea, vomiting, shortness of breath or fever Interval history since last seen: He doesn't have pain now. No fever. He just feels low energy and down. Eating some but not a lot. Exam Narrative Exam Narrative: Thin, cachectic appearing older gentleman laying in bed in no acute distress, awake, alert to person and place, heart regular rhythm but distant, lungs clear to auscultation bilaterally, abdomen soft, nontender, nondistended. Sacral wound dressed (see wound notes). Ext no edema, not tender. Objective Last Vital Signs Temp 36.3 C L 07/17/24 11:13 Pulse 71 07/17/24 11:13 Resp 22 07/17/24 11:13 BP 100/60 07/17/24 11:13 Pulse Ox 96 07/17/24 11:13 Laboratory Results - last 24 hr 07/17/24 06:25 WBC 7.56 RBC 3.35 L Hgb 9.8 L Hct 30.4 L MCV 91 MCH 29.3 MCHC 32.2 RDW 15.4 H Plt Count 131 MPV 8.6 Immature Gran % 0.8 Neutrophils % 80.5 Lymphocytes % 11.0 Monocytes % 4.1 Eosinophils % 3.3 Basophils % 0.3 Nucleated RBC % 0.0 Absolute Neutrophils 6.09 Absolute Lymphocytes 0.83 L Absolute Monocytes 0.31 Absolute Eosinophils 0.25 Absolute Basophils 0.02 Sodium 137 Potassium 3.4 L Chloride 102 Carbon Dioxide 30.3 Anion Gap 4.7 BUN 10 Creatinine 0.9 Est GFR (CKD-EPI 2020) 87.42 Glucose 114 H Calcium 8.8 Magnesium 1.5 L Time Spent with Patient Time Spent with Patient: >50 minutes Time was spent: preparing to see the patient(eg.review tests), obtaining and/or reviewing separately otained hiistory, ordering medications,tests, procedures, referring, communicating with other health resident care coordinator, indepentently interpreting results, counseling the patient and care coordination
[2024-07-17] MEDS: MAGNESIUM SULFATE 2 GM/50 ML BAG IV_INF (13:39)
[2024-07-17] MEDS: Potassium Chloride Liquid 20 MEQ PKT 40 MEQ PO (13:39)
--- NOTE | 2024-07-17 15:47 | NUR.NOTE ---
Nursing Note: Patient off unit to MRI. Discussed patient's history with Arnel in MRI, patient reported metal in his body and Arnel stated this is okay. Notified Dr. Arita.
[2024-07-17] MEDS: Gadoterate meglumine 20 ML SYRINGE 9 ML IVP (15:56)
[2024-07-17] MEDS: oxyCODONE 5 MG TAB PO (17:18)
[2024-07-17] MEDS: VANCOMYCIN/WATER (PEG) 1.25 GM/250 ML BAG IVPB (17:27)
[2024-07-17] MEDS: Collagenase 30 GM TUBE TP (18:14)
[2024-07-17 19:57] VITALS: BP 110/60; PULSE 56; RESP 16; TEMP 36.4; O2SAT 97
[2024-07-17] MEDS: Melatonin 3 MG TAB PO (20:40)
[2024-07-17] MEDS: Senna TAB 1 TAB PO (20:40)
[2024-07-17] MEDS: Docusate Sodium 100 MG CAP PO (20:41)
[2024-07-17 20:56] VITALS: BP 121/69; PULSE 59; RESP 17; TEMP 36.8
--- NOTE | 2024-07-18 | DI.US_ITS ---
APPROVED REPORT EXAM: Comprehensive 2D, Doppler, and color-flow Echocardiogram Patient Location: In-Patient Room/Bed: 208 Indications: MRSA bacteremia, endocarditis? Other Information Study Quality: Poor. Technically limited study due to body habitus, inability to position patient exa m done supine bedside Exam not completed. Patient complaining of pain.. Conclusion Technically very limited study. Patient was uncooperative, did not allow imaging Overall left ventricular systolic function appears within the range of normal Aortic valve is sclerotic Mitral valve appears structurally normal Tricuspid valve not well-visualized. Pulmonic valve not visualized The study is not adequate to assess for endocarditis or vegetations Wall motion Left Ventricle Technically limited parasternal imaging. Very low window, no calculations done. The overall left vent ricular systolic function appears normal. Exam very limited patient unable to tolerate touch from exa m. Right Ventricle Right ventricle is not well visualized. Right ventricular systolic function could not be assessed. Atria Left atrium is not well visualized. Right atrium is not well visualized. Aortic Valve Aortic valve is calcified. Mitral Valve The mitral valve is normal in structure. 2D Dimensions Ao Root d 3.67 cm M: 3.1 - 3.7 LV Diastology MV E Vmax 0.61 (0.4-1.3 m/s) MV A Vmax 0.80 (0.4-1.3 m/s) E/A Ratio 0.8 Aortic Valve LVOT Diam s 2.00 cm Mitral Valve MV DT 378 (160-240 msec) MV Vmax TIPS 0.90 m/s MV Mean Grad 1.2 (<2mmHg) MV VTI 0.288 m
[2024-07-18 05:02] VITALS: BP 140/72; PULSE 52; RESP 16; TEMP 36.6; O2SAT 96
[2024-07-18 07:58] VITALS: BP 127/72; PULSE 56; RESP 17; TEMP 36.7; O2SAT 97
[2024-07-18] MEDS: NORMAL SALINE IVPB ×2 (08:37→19:26)
[2024-07-18] MEDS: LACOSAMIDE IVPB ×2 (08:37→19:26)
[2024-07-18] MEDS: Collagenase 30 GM TUBE TP (08:39)
[2024-07-18] MEDS: Enoxaparin 40 MG/0.4 ML SYR SC (08:39)
[2024-07-18] MEDS: Docusate Sodium 100 MG CAP PO ×2 (08:40→19:41)
[2024-07-18] MEDS: Senna TAB 1 TAB PO ×2 (08:40→20:10)
[2024-07-18] MEDS: Potassium Chloride Liquid 20 MEQ PKT PO (08:40)
--- NOTE | 2024-07-18 14:39 | PDOC.CMPRO ---
Date of service: 07/18/24 Time of Service: 14:39 Care Management Progress Note Progress Note Text Progress Note Text: Narcisa was in the bed, with the HOB upright, when CM met with him. CM said darrel, and Narcisa answered, Yolanda Royal. CM discussed the plan for discharge as it stands right now - he will go home in a few days on an extended course of IV abx. Currently awaiting BC results to assure the correct antibiotic is being used, and then levels of that abx to assure proper dosing. Once Narcisa has a negative, final, blood culture result, he will have a PICC line placed. He will require 6-8 weeks of IV abx for his osteomyelitis. CM spoke with Darrel, who is willing to do the abx, which will be daily. Darrel stated that their daughter, Bertha, will want to be present when the PICC is placed. Darrel gave this CM the number to Cristopher Campa RN at the [place]. [phone]. Cristopher is not Narcisa's CM, but she was going to contact his CM, Laney, and let her know this plan. This CM will need to know where to order the abx and the supplies from, and need to keep the [facility] informed. CM did receive a call from Laney Mckinney CM at the [place]. [phone]. She provided the [place] request for services form which will need to be filled out by the provider, with the orders for the medication. HH services will be provided through [facility]. The conversation with Narcisa was kept short. He denied that he had any needs at the time. Stated that he was comfortable, and thanked CM for stopping in today. Discharge Potential Discharge Needs: PCP F/U Appt and Other (PICC line placement. ) Anticipated Barriers to Discharge: None Identified Patient/Family Education Needs: Review discharge instructions, discuss Ask Me Three Transportation: EMS Plan: Anticipate that Narcisa will be discharged home with HH services and home IV antibiotic infusions. He will f/u with his [facility] providers and continue per his plan of care. CM will continue to follow and coordinate this process. CM will continue to keep the family updated. SDOH(Care Management) Screening Will the Patient Participate in the Screening?: Yes Do you worry about having a steady place to live?: no Problems where you live: no known problems In the past 12 months, have you had to go without electric, gas, oil or water in your home?: no Have you or anyone in your house had to go without enough food to eat?: no Has lack of transportation kept you from medical appointments or from doing things needed for daily living?: no Has anyone in your support network made you feel unsafe for any reason?: no Anticipated HH Services Anticipated HH Services at Discharge [facility] Needed, RN (wound care and teaching abx therapy).
[2024-07-18 15:24] VITALS: BP 128/72; PULSE 63; RESP 18; TEMP 36.6; O2SAT 96
[2024-07-18] MEDS: Normal Saline Flush 10 ML SYR IVP ×2 (16:33→18:27)
[2024-07-18] MEDS: VANCOMYCIN/WATER (PEG) 1.25 GM/250 ML BAG IVPB (16:33)
--- NOTE | 2024-07-18 16:46 | W.PM.PROGNOT ---
Date of Service Date of service: 07/18/24 Time of Service: 13:10 Assessment and Plan Assessment and plan (1) MRSA bacteremia: Status: Acute Assessment and plan: -Initially met sepsis criteria, source is sacral ulcer/osteomyeltis -has been on linezolid, patient refused AM 07/12, but has since accepted medication -repeat blood cultures again MRSA positive 07/12 (1/2 bottles, did not report until 07/16), repeated 07/17 am -Given lack of clearence of bacteremia after 5 days on Linazolid, no plans for oral therapy, changed to vancomycin 07/17 -with persistent infection, echo done, inconclusive but treating at least another 4 weeks for osteomyelitis, I don't think CESAR worth the risk (2) Sacral decubitus ulcer: Status: Chronic Assessment and plan: -This is the apparent source of the bacteremia -We are not headed towards hospice/MANAGER MARKET DEVELOPMENT, he needs MRI to rule out osteo - Continue wound care while hospitalized and continue with [facility] upon discharge. - Patient is basically bedridden at this time, work on offloading. Encouraged improved nutritional intake. Qualifiers: Pressure injury stage: stage 3 Qualified Code(s): L89.153 - Pressure ulcer of sacral region, stage 3 (3) Sacral osteomyelitis: Status: Acute Assessment and plan: see above. (4) Prostate cancer: Status: Chronic Assessment and plan: -Status post radiation therapy on annual surveillance with chronic bladder outlet obstruction and indwelling Mckeon catheter. -Mckeon catheter exchanged on admission. (5) Seizure disorder as sequela of cerebrovascular accident: Status: Chronic Assessment and plan: -Continue antiseizure medications, getting IV as he doesn't tolerate oral well. (6) DVT prophylaxis: Status: Acute Assessment and plan: SCDs and enoxaparin. (7) Constipation: Status: Acute Assessment and plan: Discussed bowel regimen again with RN. try bisacodyl. He has limited motivation to take bowel regimen. (8) Smoker: Status: Chronic Assessment and plan: NRT patch prn (9) Hypokalemia: Status: Resolved Assessment and plan: follow in morning labs with mg (10) Dysphagia, oropharyngeal phase: Status: Acute Assessment and plan: per previous DEPUTY COUNTY ATTORNEY evaluation, concern for poor effort/behavioral issue rather than neurologic. We discussed importance of putting on weight. I don't think he is a PEG candidate without neurologic dysphagia. I hope he feels better when infection better controlled and eats. (11) Advanced care planning/counseling discussion: Status: Acute Assessment and plan: -Palliative Care discussed with Patients regarding Hospice, but patient not interested at this point. -Case discussed with after getting okay from Mr. Eduardo. He is not swallowing pills or liquids well at home. They prefer him to continue IV antibiotics in hospital, he will likely need prolonged IV therapy with vancomycin for MRSA. -Appreciated Dr. Andrews's input -overall picture of FTT. He denies depression, but willing to try mirtazipine for appetite Subjective Subjective Patient reports: no new complaints; denies bowel movement, nausea, vomiting, shortness of breath or fever Interval history since last seen: 24h events: Changed to vancomycin MRI confimed osteomyelitis Echo done but poor quality as patient did not cooperate He felt a little better when he woke up today, but now still feels runned down. Denies depressed mood, just feels bad physically and feels bad about being sick. He is eating some but not much. Not a great appetite. He isn't sure he would want a feeding tube if it came down to it. still feels like he needs to stool. Exam Narrative Exam Narrative: Thin, cachectic appearing older gentleman laying in bed in no acute distress, awake, alert to person and place, heart regular rhythm but distant, lungs clear to auscultation bilaterally, abdomen soft, nontender, nondistended. Sacral wound dressed (see wound notes). Ext no edema, not tender. Objective Last Vital Signs Temp 36.6 C 07/18/24 15:24 Pulse 63 07/18/24 15:24 Resp 18 07/18/24 15:24 BP 128/72 07/18/24 15:24 Pulse Ox 96 07/18/24 15:24 Time Spent with Patient Time Spent with Patient: 35-49 minutes Time was spent: preparing to see the patient(eg.review tests), obtaining and/or reviewing separately otained hiistory, ordering medications,tests, procedures, referring, communicating with other health customer care coordinator, indepentently interpreting results, counseling the patient and care coordination
[2024-07-18] MEDS: Bisacodyl 5 MG TABEC PO (18:25)
[2024-07-18] MEDS: Mirtazapine 15 MG TAB 7.5 MG PO (19:27)
[2024-07-18] MEDS: Melatonin 3 MG TAB PO (19:27)
[2024-07-18 19:44] VITALS: BP 128/70; PULSE 62; RESP 19; TEMP 36.3; O2SAT 96
[2024-07-19 08:08] VITALS: BP 126/68; PULSE 60; RESP 18; TEMP 36.5; O2SAT 96
[2024-07-19] MEDS: oxyCODONE 5 MG TAB PO (08:45)
[2024-07-19] MEDS: Tamsulosin 0.4 MG CAPCR 0.8 MG PO (08:49)
[2024-07-19] MEDS: Potassium Chloride Liquid 20 MEQ PKT PO (08:50)
[2024-07-19] MEDS: LACOSAMIDE IVPB ×2 (08:50→19:41)
[2024-07-19] MEDS: NORMAL SALINE IVPB ×2 (08:50→19:41)
[2024-07-19] MEDS: Enoxaparin 40 MG/0.4 ML SYR SC (08:50)
--- NOTE | 2024-07-19 09:58 | CMPROGNOTE_ITS ---
Date of service: 07/19/24 Time of Service: 09:58 Care Management Progress Note Progress Note Text Progress Note Text: Narcisa was sleeping on 3 occasions when CM went to meet with him today. One of those times, Narcisa was up in the bedside chair. CM did speak with Narcisa's daughter, Bertha, today. The treatment plan was discussed. Bertha was informed of the need to wait for BC results to be final, and negative, before a PICC can be placed. (She requested she be contacted for the PICC placement). She was also informed that the plan will be that once the PICC is in place, Narcisa will received his antibiotics at home. His course will be 6-8 weeks. His supplies will be delivered by the [place], and his RN services will be provided through [facility]. Family will be expected to learn how to administer the IV abx, which will be once daily. The rationale for the PICC was also discussed. Narcisa's CM at the [place] is Laney Mckinney RN ,CM [phone]. Yesterday she provided the request for service form, which is now located in resources, which the provider will need to fill out for the medications and supplies. Narcisa currently has a hospital bed at home, it is a bit old, but works. He just received an egg crate mattress from the [place] for that bed. Once Narcisa is home, he will be evaluated by the [facility] for further equipment needs. This information was provided by Bertha. Discharge Potential Discharge Needs: PCP F/U Appt and Other (PICC line placement) Anticipated Barriers to Discharge: None Identified Patient/Family Education Needs: Review discharge instructions, discuss Ask Me Three Transportation: EMS Plan: Anticipate that Narcisa will be discharged home with services and home IV antibiotic infusions. He will f/u with his [facility] providers and continue per his plan of care. CM will continue to follow and coordinate this process. CM will continue to keep the family updated. SDOH(Care Management) Screening Will the Patient Participate in the Screening?: Yes Do you worry about having a steady place to live?: no Problems where you live: no known problems In the past 12 months, have you had to go without electric, gas, oil or water in your home?: no Have you or anyone in your house had to go without enough food to eat?: no Has lack of transportation kept you from medical appointments or from doing things needed for daily living?: no Has anyone in your support network made you feel unsafe for any reason?: no Anticipated HH Services Anticipated HH Services at Discharge [facility], RN.
[2024-07-19] MEDS: Collagenase 30 GM TUBE TP (10:00)
[2024-07-19] MEDS: Nicotine 21 MG/24 HR PATCH TD (14:21)
[2024-07-19 14:24] LABS: Absolute Basophil Count 0.04 10^3/uL (0.0-0.2); Absolute Eosinophil Count 0.09 10^3/uL (0.0-0.7); Absolute Lymphocyte Count 0.63 10^3/uL (1.2-3.4); Absolute Monocyte Count 0.56 10^3/uL (0.1-0.8); Absolute Neutrophil Count 16.16 10^3/uL (1.2-6.7); Basophils % 0.2 %; Eosinophils % 0.5 %; HCT 34.5 % (40.0-50.0); HGB 11.2 g/dL (13.5-17.5); Immature Grans % 0.6 %; Lymphocytes % 3.6 %; MCH 29.5 pg (27.0-33.0); MCHC 32.5 % (32.0-36.0); MCV 91 fL (80-95); MPV 8.6 fL (8.0-11.0); Monocytes % 3.2 %; Neutrophils % 91.9 %; Platelet Count 155 10^3/uL (130-400); RDW 15.6 % (11.8-14.1); RDW-SD 51.7 fL; WBC 17.58 10^3/uL (4.4-10.8)
[2024-07-19 14:32] LABS: Anion Gap 3.5 mmol/L (3-11); BUN 10 mg/dL (7-18); CO2 31.5 mmol/L (21.0-32.0); CREATININE 0.9 mg/dL (0.70-1.30); Calcium 8.8 mg/dL (8.5-10.1); Chloride 105 mmol/L (98-107); Estimated GFR 87.42 (mL/min/1.73m2); Glucose 105 mg/dL (74-106); Potassium 3.5 mmol/L (3.5-5.1); Sodium 140 mmol/L (136-145)
[2024-07-19 14:36] LABS: Vancomycin, Random 12.2 ug/mL
--- NOTE | 2024-07-19 15:15 | W.PM.PROGNOT ---
Date of Service Date of service: 07/19/24 Time of Service: 15:47 Assessment and Plan Assessment and plan (1) MRSA bacteremia: Status: Acute Assessment and plan: -Initially met sepsis criteria, source is sacral ulcer/osteomyeltis -has been on linezolid, patient refused AM 07/12, but has since accepted medication -repeat blood cultures again MRSA positive 07/12 (1/2 bottles, did not report until 07/16), repeated 07/17 am NGTD -Given lack of clearence of bacteremia after 5 days on Linazolid, no plans for oral therapy, changed to vancomycin 07/17 -with persistent infection, echo done, inconclusive but treating at least another 4 weeks for osteomyelitis, I don't think CESAR worth the risk -surprisingly, WBC up today. No signs of new infection. Continue to monitor and trend this. 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 - Patient is basically bedridden at this time, work on offloading. We need to mobilize him and get him to gain weight. Qualifiers: Pressure injury stage: stage 3 Qualified Code(s): L89.153 - Pressure ulcer of sacral region, stage 3 (3) Sacral osteomyelitis: Status: Acute Assessment and plan: see above. (4) Prostate cancer: Status: Chronic Assessment and plan: -Status post radiation therapy on annual surveillance with chronic bladder outlet obstruction and indwelling Mckeon catheter. -Mckeon catheter exchanged on admission. If WBC up again tomorrow, repeat u/a (5) Seizure disorder as sequela of cerebrovascular accident: Status: Chronic Assessment and plan: -Continue antiseizure medications, getting IV as he doesn't tolerate oral well. (6) DVT prophylaxis: Status: Acute Assessment and plan: SCDs and enoxaparin. (7) Constipation: Status: Acute Assessment and plan: Discussed bowel regimen again with team. Try scheduling MOM. He has limited motivation to take bowel regimen. (8) Smoker: Status: Chronic Assessment and plan: NRT patch prn (9) Hypokalemia: Status: Resolved Assessment and plan: K+ and Mg++ improved (10) Dysphagia, oropharyngeal phase: Status: Acute Assessment and plan: per previous DOG DAY CARE ATTENDANT evaluation, concern for poor effort/behavioral issue rather than neurologic. We discussed importance of putting on weight. I don't think he is a PEG candidate without neurologic dysphagia. I hope he feels better when infection better controlled and eats. (11) Advanced care planning/counseling discussion: Status: Acute Assessment and plan: -Palliative Care discussed with Patients regarding Hospice, but patient not interested at this point. -Case discussed with after getting okay from Mr. Eduardo, talked with son today. -He is not swallowing pills or liquids well at home. They prefer him to continue IV antibiotics in hospital, he will likely need prolonged IV therapy with vancomycin for MRSA as inpatient/swing status. -Appreciated palliative care input -overall picture of FTT. He denies depression, but willing to try mirtazipine for appetite, continue at 7.5mg and increase next week if continues to tolerate. Subjective Subjective Patient reports: no new complaints; denies bowel movement, diarrhea, nausea, vomiting, shortness of breath or fever Interval history since last seen: He denies pain currently. He is eating, though not a lot. He doesn't feel sick. No change in wound per nursing Exam Narrative Exam Narrative: Thin, cachectic appearing older gentleman laying in bed in no acute distress, awake, alert to person and place, heart regular rhythm but distant, lungs clear to auscultation bilaterally, abdomen soft, nontender, nondistended. Sacral wound dressed (see wound notes). Ext no edema, not tender. Objective Last Vital Signs Temp 36.5 C 07/19/24 08:08 Pulse 60 07/19/24 08:08 Resp 18 07/19/24 08:08 BP 126/68 07/19/24 08:08 Pulse Ox 96 07/19/24 08:08 Laboratory Results - last 24 hr 07/19/24 14:07 WBC 17.58 H RBC 3.80 L Hgb 11.2 L Hct 34.5 L MCV 91 MCH 29.5 MCHC 32.5 RDW 15.6 H Plt Count 155 MPV 8.6 Immature Gran % 0.6 Neutrophils % 91.9 Lymphocytes % 3.6 Monocytes % 3.2 Eosinophils % 0.5 Basophils % 0.2 Nucleated RBC % 0.0 Absolute Neutrophils 16.16 H Absolute Lymphocytes 0.63 L Absolute Monocytes 0.56 Absolute Eosinophils 0.09 Absolute Basophils 0.04 Sodium 140 Potassium 3.5 Chloride 105 Carbon Dioxide 31.5 Anion Gap 3.5 BUN 10 Creatinine 0.9 Est GFR (CKD-EPI 2020) 87.42 Glucose 105 Calcium 8.8 Magnesium 2.0 Random Vancomycin 12.2 Time Spent with Patient Time Spent with Patient: 35-49 minutes Time was spent: preparing to see the patient(eg.review tests), obtaining and/or reviewing separately otained hiistory, ordering medications,tests, procedures, referring, communicating with other health early breastfeeding care specialist, indepentently interpreting results, counseling the patient and care coordination
[2024-07-19 15:37] VITALS: BP 112/67; PULSE 84; RESP 17; TEMP 37.3; O2SAT 93
[2024-07-19] MEDS: Normal Saline Flush 10 ML SYR IVP ×2 (16:22→19:39)
[2024-07-19] MEDS: VANCOMYCIN/WATER (PEG) 1.25 GM/250 ML BAG IVPB (16:22)
[2024-07-19] MEDS: Melatonin 3 MG TAB PO (19:40)
[2024-07-19] MEDS: Nystatin POWDER 60 GM JAR TP (19:40)
[2024-07-19] MEDS: Docusate Sodium 100 MG CAP PO (19:40)
[2024-07-19] MEDS: Mirtazapine 15 MG TAB 7.5 MG PO (19:40)
[2024-07-19] MEDS: Senna TAB 1 TAB PO (19:40)
[2024-07-20] MEDS: Acetaminophen 500 MG TAB 1000 MG PO (00:37)
[2024-07-20 00:48] VITALS: BP 101/64; PULSE 71; RESP 18; TEMP 36.8; O2SAT 93
[2024-07-20 07:07] VITALS: BP 129/71; PULSE 60; RESP 16; TEMP 36.4; O2SAT 98
--- NOTE | 2024-07-20 08:42 | CHAPLAIN ---
Narcisa was talking with his nurse, Kellie, when I visited last night. They were sharing their views on their Latter-Day beliefs about relationships with God. Later Narcisa talked about having an emotional visit with his son before his son left to travel back home. Narcisa described the conversation as emotional and helpful. Narcisa had questions around dying and forgiveness. He sights Bible references in discussing his beliefs which come from a strong Latter-Day background. He said he's had a lot of time to think since he's been here and he's been very reflective about his life and what he thinks will happen when he dies. He talked about being in the unusual position of knowing that his body is failing but not being ready to . He was curious about my belief system and thoughts on dying. He shared some personal history and reflected back on times in his life that were positive and some that were challenging. He doesn't not believe that suicide should be an option for people, and seemed to align palliative care and hospice care with accepting and possibly hastening . I will continue to visit.
[2024-07-20] MEDS: Cholecalciferol (Vitamin D3) 1,000 UNIT TAB 1000 UNITS PO (09:37)
[2024-07-20] MEDS: Potassium Chloride Liquid 20 MEQ PKT PO (09:37)
[2024-07-20] MEDS: Docusate Sodium 100 MG CAP PO (09:37)
[2024-07-20] MEDS: Lactobacillus Acidophilus CAP 1 CAP PO (09:37)
[2024-07-20] MEDS: Tamsulosin 0.4 MG CAPCR 0.8 MG PO (09:37)
[2024-07-20] MEDS: Enoxaparin 40 MG/0.4 ML SYR SC (09:37)
[2024-07-20] MEDS: oxyCODONE 5 MG TAB PO (09:37)
[2024-07-20] MEDS: LACOSAMIDE IVPB ×2 (09:38→21:46)
[2024-07-20] MEDS: NORMAL SALINE IVPB ×2 (09:38→21:46)
[2024-07-20] MEDS: Normal Saline Flush 10 ML SYR IVP ×5 (09:38→21:47)
--- NOTE | 2024-07-20 09:49 | W.PM.PROGNOT ---
Date of Service Date of service: 07/20/24 Time of Service: 09:49 Assessment and Plan Assessment and plan (1) MRSA bacteremia: Status: Acute Assessment and plan: -Initially met sepsis criteria, source is sacral ulcer/osteomyeltis -has been on linezolid, patient refused AM 07/12, but has since accepted medication -repeat blood cultures again MRSA positive 07/12 (1/2 bottles, did not report until 07/16), repeated 07/17 am NGTD x 72 hours -Given lack of clearance of bacteremia after 5 days on Linazolid, no plans for oral therapy, changed to vancomycin 07/17 -with persistent infection, echo done, inconclusive but treating at least another 4 weeks for osteomyelitis, I don't think CESAR worth the risk -surprisingly, WBC up 07/19. Repeat ordered with CRP. No signs of new infection. Continue to monitor and trend this. -If WBC still high should repeat urine culture, though no clear focal UTI symptoms. 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 - Patient is basically bedridden at this time, work on offloading. We need to mobilize him and get him to gain weight. He is more mobile this morning, order PT Qualifiers: Pressure injury stage: stage 3 Qualified Code(s): L89.153 - Pressure ulcer of sacral region, stage 3 (3) Sacral osteomyelitis: Status: Acute Assessment and plan: see above. (4) Prostate cancer: Status: Chronic Assessment and plan: -Status post radiation therapy on annual surveillance with chronic bladder outlet obstruction and indwelling Mckeon catheter. -Mckeon catheter exchanged on admission. If WBC up again tomorrow, repeat u/a (5) Seizure disorder as sequela of cerebrovascular accident: Status: Chronic Assessment and plan: -Continue antiseizure medications, getting IV as he doesn't tolerate oral well. (6) DVT prophylaxis: Status: Acute Assessment and plan: SCDs and enoxaparin. (7) Constipation: Status: Acute Assessment and plan: Discussed bowel regimen again with team. Taking scheduled MOM. He consistently refuses part of his bowel regimen. stop docusate as he doesn't take pills well and this has minimal efficacy refused senna, try bisacodyl. (8) Smoker: Status: Chronic Assessment and plan: NRT patch prn (9) Hypokalemia: Status: Resolved Assessment and plan: K+ and Mg++ improved (10) Dysphagia, oropharyngeal phase: Status: Acute Assessment and plan: per previous BLENDING TANK TENDER HELPER evaluation, concern for poor effort/behavioral issue rather than neurologic. We have stressed importance of putting on weight. I don't think he is a PEG candidate without neurologic dysphagia. I hope he feels better when infection better controlled and eats. Had nutrition consult, appetite improving with mirtazipine. (11) Advanced care planning/counseling discussion: Status: Acute Assessment and plan: -Palliative Care discussed with Patients regarding Hospice, but patient not interested at this point. -Case discussed with after getting okay from Mr. Eduardo, talked with son today. -He is not swallowing pills or liquids well at home. They prefer him to continue IV antibiotics in hospital, he will likely need prolonged IV therapy with vancomycin for MRSA as inpatient/swing status. -Appreciated palliative care input -overall picture of FTT. He denies depression, but taking mirtazipine for appetite, continue at 7.5mg, low dose probably most effective for appetite. Subjective Subjective Patient reports: no new complaints; denies nausea, vomiting, shortness of breath or fever Interval history since last seen: 24hr: Declined labs this morning He is feeling a little better today, appetite a little more. He didn't have BM yesterday, taking MOM this morning. He denies pain this morning. Exam Narrative Exam Narrative: Thin, cachectic appearing older gentleman laying in bed in no acute distress, awake, alert to person and place. He is able to sit himself up on the side of the bed today. Affect less depressed, more engaged. heart regular rhythm but distant, lungs clear to auscultation bilaterally, abdomen soft, nontender, nondistended. Sacral wound dressed (see wound notes). Ext no edema, not tender. Objective Last Vital Signs Temp 36.4 C L 07/20/24 07:07 Pulse 60 07/20/24 07:07 Resp 16 07/20/24 07:07 BP 129/71 07/20/24 07:07 Pulse Ox 98 07/20/24 07:07 Laboratory Results - last 24 hr 07/19/24 14:07 WBC 17.58 H RBC 3.80 L Hgb 11.2 L Hct 34.5 L MCV 91 MCH 29.5 MCHC 32.5 RDW 15.6 H Plt Count 155 MPV 8.6 Immature Gran % 0.6 Neutrophils % 91.9 Lymphocytes % 3.6 Monocytes % 3.2 Eosinophils % 0.5 Basophils % 0.2 Nucleated RBC % 0.0 Absolute Neutrophils 16.16 H Absolute Lymphocytes 0.63 L Absolute Monocytes 0.56 Absolute Eosinophils 0.09 Absolute Basophils 0.04 Sodium 140 Potassium 3.5 Chloride 105 Carbon Dioxide 31.5 Anion Gap 3.5 BUN 10 Creatinine 0.9 Est GFR (CKD-EPI 2020) 87.42 Glucose 105 Calcium 8.8 Magnesium 2.0 Random Vancomycin 12.2 Time Spent with Patient Time Spent with Patient: 35-49 minutes Time was spent: preparing to see the patient(eg.review tests), obtaining and/or reviewing separately otained hiistory, ordering medications,tests, procedures, referring, communicating with other health chiropractic care, indepentently interpreting results, counseling the patient and care coordination
[2024-07-20] MEDS: Milk of Magnesia 30 ML CUP PO (09:51)
[2024-07-20] MEDS: Nystatin POWDER 60 GM JAR TP ×3 (10:09→20:40)
[2024-07-20] MEDS: Collagenase 30 GM TUBE TP (10:10)
[2024-07-20 11:08] VITALS: BP 113/69; PULSE 61; RESP 16; TEMP 36.1; O2SAT 94
[2024-07-20 13:11] LABS: Abs Immature Grans 0.04 10^3/uL (0.0-0.06); Absolute Basophil Count 0.03 10^3/uL (0.0-0.2); Absolute Eosinophil Count 0.11 10^3/uL (0.0-0.7); Absolute Lymphocyte Count 1.02 10^3/uL (1.2-3.4); Absolute Monocyte Count 0.54 10^3/uL (0.1-0.8); Absolute Neutrophil Count 8.54 10^3/uL (1.2-6.7); Basophils % 0.3 %; Eosinophils % 1.1 %; HCT 31.3 % (40.0-50.0); HGB 10.1 g/dL (13.5-17.5); Immature Grans % 0.4 %; Lymphocytes % 9.9 %; MCH 29.6 pg (27.0-33.0); MCHC 32.3 % (32.0-36.0); MCV 92 fL (80-95); MPV 8.3 fL (8.0-11.0); Monocytes % 5.3 %; Platelet Count 111 10^3/uL (130-400); RBC 3.41 10^6/uL (4.36-5.78); RDW 15.9 % (11.8-14.1); RDW-SD 53.4 fL; WBC 10.28 10^3/uL (4.4-10.8)
[2024-07-20 15:19] VITALS: BP 100/67; PULSE 92; RESP 16; TEMP 36.4; O2SAT 98
[2024-07-20] MEDS: VANCOMYCIN/WATER (PEG) 1.25 GM/250 ML BAG IVPB (16:38)
[2024-07-20 19:07] VITALS: BP 96/62; PULSE 79; RESP 18; TEMP 36.9; O2SAT 96
[2024-07-20] MEDS: Mirtazapine 15 MG TAB 7.5 MG PO (20:37)
[2024-07-20] MEDS: LORazepam 2 MG/ML VIAL 0.5 MG IVP (21:47)
[2024-07-21 07:37] VITALS: BP 122/56; PULSE 57; RESP 16; TEMP 36.6; O2SAT 95
--- NOTE | 2024-07-21 08:33 | PDOC.CMPRO ---
Date of service: 07/21/24 Time of Service: 08:33 Care Management Progress Note Progress Note Text Progress Note Text: Narcisa was lying in bed asleep when CM went to see him. As he had had a difficult morning, the decision was made not to wake him. This afternoon Narcisa agreed to have a PICC inserted for the administration of IV antibiotics. CM contacted his daughter Bertha to inform her the procedure was imminent and she came to visit to facilitate the process. CM attempted to begin the process of ordering the IV antibiotics through the [facility]. Messages were left with no return phone calls; it is possible they are closed today. CM will follow up on Wednesday. CM met with Bertha while Narcisa's PICC was being inserted. Concerns were raised by nursing about the family's ability to care for Narcisa at home. He has been bed bound for more than a week and frequently refuses care and/or treatments and medications. He had a PT evaluation completed on 07/11/24 and was treated again on 07/12/24. There are no notes from PT after that date so it is not clear why services stopped. Another Eval has been ordered. If Narcisa is unable to transfer on his own or with one assist, they may need to get a rhoda lift. An order has also been placed for another wound consult. A wound consult was completed on 07/12 but Narcisa has not been seen by a wound nurse since. Concern was raised by nursing that there may now be some tunneling which would likely change the treatment plan. Bertha explained that her mother will be his primary toddler guide with assistance from home health. They understand that there will not be coverage all day every day. Bertha indicated that she will assist as needed. They currently have an older model hospital bed and a commode. The [facility] is working on replacing the hospital bed with a newer version that can be elevated for care and they are also providing a wheelchair. CM did speak to Bertha again about hospice and the fact that they can offer additional equipment and services. Bertha is supportive of the idea of hospice but the decision will need to be made by Darrel and Narcisa. Discharge Potential Discharge Needs: PCP F/U Appt Anticipated Barriers to Discharge: Medical Status Patient/Family Education Needs: Review discharge instructions, discuss Ask Me Three Transportation: Private vehicle Plan: Anticipate that Narcisa will be discharged home with new services for nursing with home IV antibiotic infusions. [facility] will [facility] and continue per his plan of care. CM will continue to follow and coordinate this process. CM will continue to keep the family updated. SDOH(Care Management) Screening Will the Patient Participate in the Screening?: Yes Do you worry about having a steady place to live?: no Problems where you live: no known problems In the past 12 months, have you had to go without electric, gas, oil or water in your home?: no Have you or anyone in your house had to go without enough food to eat?: no Has lack of transportation kept you from medical appointments or from doing things needed for daily living?: no Has anyone in your support network made you feel unsafe for any reason?: no
--- NOTE | 2024-07-21 09:12 | PGE_ITS ---
Date of Service Date of service: 07/21/24 Time of Service: 09:12 Assessment and Plan Assessment and plan (1) MRSA bacteremia: Status: Acute Assessment and plan: -Initially met sepsis criteria, source is sacral ulcer/osteomyeltis -has been on linezolid, patient refused AM 07/12, but has since accepted medication -repeat blood cultures again MRSA positive 07/12 (1/2 bottles, did not report until 07/16), repeated 07/17 am NGTD x 72 hours -Given lack of clearance of bacteremia after 5 days on Linazolid, no plans for oral therapy, changed to vancomycin 07/17 -with persistent infection, echo done, inconclusive but treating at least another 4 weeks for osteomyelitis, I don't think CESAR worth the risk -surprisingly, WBC up 07/19. Repeat ordered with CRP. No signs of new i nfection. Continue to monitor and trend this. -If WBC still high should repeat urine culture, though no clear focal UTI symptoms. 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 - Patient is basically bedridden at this time, work on offloading. We need to mobilize him and get him to gain weight. He is more mobile this morning, order PT Qualifiers: Pressure injury stage: stage 3 Qualified Code(s): L89.153 - Pressure ulcer of sacral region, stage 3 (3) Sacral osteomyelitis: Status: Acute Assessment and plan: see above. (4) Prostate cancer: Status: Chronic Assessment and plan: -Status post radiation therapy on annual surveillance with chronic bladder outlet obstruction and indwelling Giraldo catheter. -Giraldo catheter exchanged on admission. If WBC up again tomorrow, repeat u/a (5) Seizure disorder as sequela of cerebrovascular accident: Status: Chronic Assessment and plan: -Continue antiseizure medications, getting IV as he doesn't tolerate oral well. (6) DVT prophylaxis: Status: Acute Assessment and plan: SCDs and enoxaparin. (7) Constipation: Status: Acute Assessment and plan: Discussed bowel regimen again with team. Taking scheduled MOM. He consistently refuses part of his bowel regimen. stop docusate as he doesn't take pills well and this has minimal efficacy refused senna, try bisacodyl. (8) Smoker: Status: Chronic Assessment and plan: NRT patch prn (9) Hypokalemia: Status: Resolved Assessment and plan: K+ and Mg++ improved (10) Dysphagia, oropharyngeal phase: Status: Acute Assessment and plan: per previous LEGAL OPERATIONS MANAGER evaluation, concern for poor effort/behavioral issue rather than neurologic. We have stressed importance of putting on weight. I don't think he is a PEG candidate without neurologic dysphagia. I hope he feels better when infection better controlled and eats. Had nutrition consult, appetite improving with mirtazipine. (11) Advanced care planning/counseling discussion: Status: Acute Assessment and plan: -Palliative Care discussed with Patients regarding Hospice, but patient not interested at this point. -Case discussed with after getting okay from Mr. Eduardo, talked with son today. -He is not swallowing pills or liquids well at home. They prefer him to continue IV antibiotics in hospital, he will likely need prolonged IV therapy with vancomycin for MRSA as inpatient/swing status. -Appreciated palliative care input -overall picture of FTT. He denies depression, but taking mirtazipine for appetite, continue at 7.5mg, low dose probably most effective for appetite. (12) Severe protein-calorie malnutrition (Phillips: less than 60% of standard weight): Status: Acute Assessment and plan: will start on ensure and add megace. will d/w nutrition any other recommendations Subjective Subjective Interval history since last seen: Pt seen and examined in his room. POC d/w pt as well as at [facility]. Pt is aware that a PICC line is pending. Pt is amendable to labs draw in the am. Pt states that his appetite is fair. Exam Narrative Exam Narrative: Thin, cachectic appearing older gentleman laying in bed in no acute distress, awake, alert to person and place. He is able to sit himself up on the side of the bed today. Affect less depressed, more engaged. heart regular rhythm but distant, lungs clear to auscultation bilaterally, abdomen soft, nontender, nondistended. Sacral wound dressed (see wound notes). Ext no edema, not tender. giraldo in place. Scaphoid abdomen Objective Last Vital Signs Temp 36.6 C 07/21/24 07:37 Pulse 57 L 07/21/24 07:37 Resp 16 07/21/24 07:37 BP 122/56 L 07/21/24 07:37 Pulse Ox 95 07/21/24 07:37 Laboratory Results - last 24 hr 07/20/24 13:05 WBC 10.28 RBC 3.41 L Hgb 10.1 L Hct 31.3 L MCV 92 MCH 29.6 MCHC 32.3 RDW 15.9 H Plt Count 111 L MPV 8.3 Immature Gran % 0.4 Neutrophils % 83.0 Lymphocytes % 9.9 Monocytes % 5.3 Eosinophils % 1.1 Basophils % 0.3 Nucleated RBC % 0.0 Absolute Neutrophils 8.54 H Absolute Lymphocytes 1.02 L Absolute Monocytes 0.54 Absolute Eosinophils 0.11 Absolute Basophils 0.03 C-Reactive Protein 9.70 H Time Spent with Patient Time Spent with Patient: 25-34 minutes Time was spent: preparing to see the patient(eg.review tests), obtaining and/or reviewing separately otained hiistory, ordering medications,tests, procedures, referring, communicating with other health child care, indepentently interpreting results, counseling the patient and care coordination
[2024-07-21] MEDS: Milk of Magnesia 30 ML CUP PO (09:57)
[2024-07-21] MEDS: Lactobacillus Acidophilus CAP 1 CAP PO (09:57)
[2024-07-21] MEDS: Polyethylene Glycol 3350 17 GM PACKET PO (09:57)
[2024-07-21] MEDS: Potassium Chloride Liquid 20 MEQ PKT PO (09:58)
[2024-07-21] MEDS: Enoxaparin 40 MG/0.4 ML SYR SC (09:58)
[2024-07-21] MEDS: Tamsulosin 0.4 MG CAPCR 0.8 MG PO (09:58)
[2024-07-21] MEDS: LACOSAMIDE IVPB ×2 (09:58→19:45)
[2024-07-21] MEDS: NORMAL SALINE IVPB ×2 (09:58→19:45)
[2024-07-21] MEDS: oxyCODONE 5 MG TAB PO ×2 (09:58→20:55)
[2024-07-21] MEDS: Nystatin POWDER 60 GM JAR TP (10:30)
[2024-07-21] MEDS: Collagenase 30 GM TUBE TP (10:31)
[2024-07-21] MEDS: LORazepam 2 MG/ML VIAL 0.5 MG IVP (12:52)
[2024-07-21] MEDS: Normal Saline Flush 10 ML SYR IVP ×2 (12:53→16:43)
--- NOTE | 2024-07-21 13:45 | DI.RAD_ITS ---
Exam(s) XR PORTABLE CHEST AP POST LINE EXAM: XR PORTABLE CHEST AP POST LINE CLINICAL HISTORY: verify PICC TECHNIQUE: 2D digital imaging was performed of the chest. Two images were obtained. AP views were obtained. COMPARISON: CR,XR XR PORTABLE CHEST AP POST LINE from 02/26/2024 FINDINGS: There is a right PICC line present. The tip of the catheter is curved directed medially. The cathet er should be withdrawn 2-3 cm and repositioned. MEDIASTINUM: Normal. HEART: Normal. PULMONARY VASCULATURE: Normal. LUNGS: There is a left basilar infiltrate. The right lung is clear. PLEURAL SPACE: No pleural effusion or pneumothorax. BONE:Within normal limits for the patient's age. OTHER FINDINGS:Normal. IMPRESSION: Right PICC line with a tip curved medially. The catheter should be withdrawn 2-3 cm and reposition. DATA REPOSITORY: RADIATION DOSE DELIVERED:
--- NOTE | 2024-07-21 14:00 | DI.RAD_ITS ---
Exam(s) XR PORTABLE CHEST AP POST LINE EXAM: XR PORTABLE CHEST AP POST LINE CLINICAL HISTORY: PICC placement. TECHNIQUE: 2D digital imaging was performed. COMPARISON: Prior chest x-ray same date performed 1402 HR S FINDINGS: Single AP portable view. Performed 07/21/2024 14:08 p.m. Right PICC line is in the SVC but is again noted to be looked into what is probably the junction with the innominate vein or possibly azygos Heart size is upper normal. The mediastinum is not widened. Right lung is clear. Some increased markings-probable infiltrate noted in left lower lobe retrocardi ac. No obvious pleural effusions. IMPRESSION: PICC line as above.Mild left lower lobe infiltrate. DATA REPOSITORY: RADIATION DOSE DELIVERED:
--- NOTE | 2024-07-21 14:00 | DI.RAD_ITS ---
Exam(s) XR PORTABLE CHEST AP POST LINE EXAM: XR PORTABLE CHEST AP POST LINE CLINICAL HISTORY: PICC placement. TECHNIQUE: 2D digital imaging was performed. COMPARISON: CR XR PORTABLE CHEST AP POST LINE from 07/21/2024 at 14:08 p.m. FINDINGS: Single AP portable view. Performed 14:14 p.m. Heart size is upper normal. The mediastinum is not widened. Distal tip of the line is now in good position in the SVC pointing caudally Right lung is clear. Slightly increased markings left lower lobe are noted which are mostly vascular . IMPRESSION: Improved appearance of the distal tip of the PICC line which is now pointing caudally within the SVC. DATA REPOSITORY: RADIATION DOSE DELIVERED:
[2024-07-21 14:51] VITALS: BP 112/79; PULSE 71; RESP 16; TEMP 36.4; O2SAT 97
--- NOTE | 2024-07-21 15:53 | PT.INIE ---
PT Notes Visit Reasons: Sepsis, UTI with MRSA, CHUCK, .... Physical Therapy Inpatient Initial Evaluation Date:07/21/2024 Referring Doctor: Medardo Grullon MD PT Orders: PT CONSULT: Eval/treat Precautions: Fall. Activity as tolerated. On CONTACT PRECAUTIONS IN PLACE. Patient Profile/Admitting Diagnosis: Narcisa is a 78-year-old male with past medical history significant for seizure disorder as a sequela previous CVA, nondisplaced subcapital femoral neck fracture on the left side and is status post ORIF with cannulated screw fixation on 02/28/2024, and PTSD who presented to the ED on 07/07/2024 due to difficulty ambulation, pain in coccyx, increased confusion in the past 2 weeks prior to admission, and generalized weakness. Per chart, the patient has lost about 11.5 pounds since March of this year. Patient was admitted for management of sepsis, UTI, sacral decubitus, history of folillicular lymphoma, and seizure disorder. Being medically managed for MRSA bacteremia. Social History/Home Situation: Lives alone. Modified independent indoors and outdoors using front-wheeled walker. Equipment Owned/DME: SPC, FWW Subjective: Narcisa is agreeable to PT consultation initially. He denies pain, and states that he feels okay to sit up to edge of bed. He's unsure of whether he has stood or walked recently. Objective: General Observation: Cachexic. Resting in bed. IV access through L UE. PICC line RUE. Mckeon catheter in place. Mental Status: Alert and oriented as to place. Estimates date at July 1983, stating that might be a little off. Unable to recall previous activities throughout session. Oriented to purpose of PT consult several times throughout session, although patient unable to recall information. Verbalizes signs of confusion and paranoia during session, stating he's not sure why there are so many levels of secrecy and questions the true purpose of this visit. Requires frequent redirecting and reminders of purpose PT session. Encouraged to ask questions throughout. Pain: denies Vital Signs: Closely monitored by nursing staff ROM: Right Upper Extremity: Shoulder Flexion full. Elbow and wrist motion WFL. Left Upper Extremity: Shoulder Flexion full. Elbow and wrist motion WFL. Right Lower Extremity: Hip flexion WFL. Hip abduction WFL. Knee flexion 20 degrees to 90 degrees. Knee extension -20 degrees. Ankle dorsiflexion to neutral only. Ankle plantarflexion WFL. Left Lower Extremity: Hip flexion allows WFL. Hip abduction WFL. Knee flexion 30 degrees to 90 degrees. Knee extesnion -30 degrees. Ankle dorsiflexion WFL. Ankle plantarflexion WFL. Strength: Right Upper Extremity: Shoulder flexors 3/5. Shoulder abductors 3-/5. Elbow flexors 4/5. Elbow extensors 4/5. Eye Dropper Assembler strong. Left Upper Extremity: Shoulder flexors 3/5. Shoulder abductors 3-/5. Elbow flexors 4/5. Elbow extensors 4/5. Eye Dropper Assembler strong. Right Lower Extremity: Hip flexors 3/5. Hip abductors 4/5. Knee flexors 3-/5. Knee extensors 3-/5. Ankle dorsiflexors 3-/5. Ankle plantarflexors 4-/5. Able to perform SLR x 3 on each side. Left Lower Extremity: Hip flexors 3/5. Hip abductors 3-/5. Knee flexors 3-/5. Knee extensors 3-/5. Ankle dorsiflexors 3-/5. Ankle plantarflexors 4-/5. Bed Mobility/Transfers: rolling in bed: mod A x 1 supine-sit: min A x 1 sit-stand: unable to redirect patient for completion Gait: unable due to level of confusion. Unable to follow commands for standing activities Balance: Static Sitting: good Dynamic Sitting: fair Static Standing: unable Dynamic Standing: unable Special Tests: Mobility Limitations Standardized Measure [facility] AM-PAC 6 clicks Basic Mobility Inpatient Short Form: Raw Score: 13 CMS Score: 65% deficit Informed Consent/Education: Patient was instructed in purpose of PT consult and plan of care. Agreeable to proceed with established PT POC to achieve personal goals. Treatment: Evaluation: 59943 Therapeutic Exercises ([id number]): seated LAQ 10x each seated march 10x seated ankle pumps, patient performs 4 reps then lies back down abruptly supine heel slides 10x supine SLR 3x each, with need for continuous cues supine shoulder flexion 8x Assessment: Patient presents with clinical signs and symptoms consistent with current/admitting diagnoses, with limited participation in PT intervention during current hospitalization. Evaluation today shows diminished mobility, although this is difficult to assess due to levels of confusion. Suspect that patient has sufficient strength to stand and ambulate short distances with support, although unable to assess today due to inability to follow commands for transfer. He is seen late in the day, and will attempt further mobilization tomorrow morning and establish ambulatory status if he is more able to participate. At this point, his AM-PAC score support further rehabilitation in SNF setting, however, will continue monitoring as he's able to better participate. He presents with the following impairment level findings: 1. Decreased strength to bilat LEs 2. Impaired sitting/standing balance 3. Impaired activity tolerance 4. Limitation of joint range of motion in L hip and knee Impairments are contributing to the following functional limitations: 1. Decline in bed mobility skills 2. Decline in transfer skills 3. Difficulty with ambulation without assistive device and physical assistance 4. Increased completion time for mobility ADL performance 5. Increased risk for falls 6. Difficulty with managing steps alone safely Patient is assessed as a 19193 moderate complexity based on the following: History: 78-year-old male with past medical history as indicated above Examination: Demonstrable impairment in strength, balance, and mobility level with underlying impairments and functional limitations as exhibited above as well as deficit score of 65% utilizing the [facility] Mobility Inpatient Short Form Presentation: Evolving Decision Makin moderate complexity Goals: Goals X1 week 1. Supine-Sit supervision 2. Sit-Supine supervision 3. Sit-Stand supervision 4. Stand-Sit supervision with FWW 5. Bed-Chair supervisionwith FWW 6. Chair-Bed min A with FWW 7. gait on level surface with use of FWW for at least 75 feet with min A without report of pain nor dyspnea Plan of Care/Treatment Plan: 1-2x/day, 7 days/week x 1 week. Plan of care has been reviewed with the SEMICONDUCTOR EQUIPMENT TECHNICIAN providing the service under Physical Therapy direction. Initiate Physical Therapy intervention for pain management as needed, strengthening, bed mobility, transfers, gait, stairs, balance training, and use of assistive device. DISCHARGE RECOMMENDATIONS: [] Home with no services [] [] Home with services [specify] [] Home with outpatient PT [] [] SNF for continued rehabilitation [] [] [facility] [] [] SNF versus LTC based on ability to participate and progress [] [X] Short-term rehab TREATMENT CODE/TIME: 92119 x 25 minutes for 1 unit, 40124 15 minutes for 1 unit ([id number]). Thank you for the opportunity to participate in the care of this patient. Taya Etienne, PT, DPT [facility] [place], [place]
[2024-07-21] MEDS: VANCOMYCIN/WATER (PEG) 1.25 GM/250 ML BAG IVPB (16:39)
--- NOTE | 2024-07-21 18:23 | NUR.NOTE ---
Nursing Note: pt has refused daily dressing change to sacral and ischial wound. This nurse has reattempted the dressing change x5 times today. Pt continuing to refuse. Pt educated on importance of dressing change and the importance for healing. Pt given education regarding medications, pain management and the importance of q2 hr turns and repositioning. Pt called out in pain during boost in bed. This RN offered pt pain medication x2 times and pt continues to decline. Daughter Bertha spoke to pt regarding pain medication, pt continues to decline. Will reapproach.
[2024-07-21] MEDS: Acetaminophen 500 MG TAB 1000 MG PO (20:55)
--- NOTE | 2024-07-22 00:14 | NUR.NOTE ---
Pt refused Mirtazipine, reporting bad dreams while taking this drug.
[2024-07-22 07:25] LABS: HCT 32.7 % (40.0-50.0); HGB 10.4 g/dL (13.5-17.5); MCH 29.5 pg (27.0-33.0); MCHC 31.8 % (32.0-36.0); MCV 93 fL (80-95); MPV 8.9 fL (8.0-11.0); Platelet Count 176 10^3/uL (130-400); RBC 3.52 10^6/uL (4.36-5.78); RDW 16.2 % (11.8-14.1); RDW-SD 54.4 fL; WBC 8.31 10^3/uL (4.4-10.8)
[2024-07-22 07:30] VITALS: BP 116/69; PULSE 62; RESP 16; TEMP 36.3; O2SAT 95
[2024-07-22 07:46] LABS: ALT 14 U/L (16-63); AST 11 U/L (15-37); Albumin 2.3 g/dL (3.4-5.0); Alkaline Phosphatase 104 U/L (46-116); Anion Gap 6.8 mmol/L (3-11); BUN 11 mg/dL (7-18); Bilirubin, Total 0.45 mg/dL (0.2-1.0); CO2 30.2 mmol/L (21.0-32.0); CREATININE 0.9 mg/dL (0.70-1.30); Calcium 9.2 mg/dL (8.5-10.1); Chloride 112 mmol/L (98-107); Estimated GFR 87.42 (mL/min/1.73m2); Glucose 89 mg/dL (74-106); Sodium 149 mmol/L (136-145); Total Protein 6.4 g/dL (6.4-8.2); Vancomycin, Random 24.5 ug/mL
[2024-07-22] MEDS: Potassium Chloride Liquid 20 MEQ PKT PO (09:14)
[2024-07-22] MEDS: Polyethylene Glycol 3350 17 GM PACKET PO (09:14)
--- NOTE | 2024-07-22 11:07 | PT.INNT ---
PT Notes Visit Reasons: Sepsis, UTI with MRSA, CHUCK, .... pt refused PT x2 this am. Very confused and paranoid. I as well as nurse unable to redirect him. He refused exercise of any kind, as well as getting out of bed, washing up or re-positioning. Will check back in with him in am.
--- NOTE | 2024-07-22 12:05 | PGE_ITS ---
Date of Service Date of service: 07/22/24 Time of Service: 12:05 Assessment and Plan Assessment and plan (1) MRSA bacteremia: Status: Acute Assessment and plan: -Initially met sepsis criteria, source is sacral ulcer/osteomyeltis -has been on linezolid, patient refused AM 07/12, but has since accepted medication -repeat blood cultures again MRSA positive 07/12 (1/2 bottles, did not report until 07/16), repeated 07/17 am NGTD x 72 hours -Given lack of clearance of bacteremia after 5 days on Linazolid, no plans for oral therapy, changed to vancomycin 07/17 -with persistent infection, echo done, inconclusive but treating at least another 4 weeks for osteomyelitis, I don't think CESAR worth the risk -surprisingly, WBC up 07/19. Repeat ordered with CRP. No signs of new i nfection. Continue to monitor and trend this. -If WBC still high should repeat urine culture, though no clear focal UTI symptoms. -PICC 07/22 if cultures negative pt agrees with lab draw in am 07/21/24 Vanc level elevated today to 24. Will d/w pharmacy, otw cw medical management. 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 - Patient is basically bedridden at this time, work on offloading. We need to mobilize him and get him to gain weight. He is more mobile this morning, order PT 07/21/24 Pt POC d/w MDR this am. Wound care has recommended surgical consult for debridement. Will d/w daugther tomorrow as well as with pt. Non-emergent or urgent so will call surgery on Wednesday if family/pt agree. Qualifiers: Pressure injury stage: stage 3 Qualified Code(s): L89.153 - Pressure ulcer of sacral region, stage 3 (3) Sacral osteomyelitis: Status: Acute Assessment and plan: see above. (4) Prostate cancer: Status: Chronic Assessment and plan: -Status post radiation therapy on annual surveillance with chronic bladder outlet obstruction and indwelling Giraldo catheter. -Giraldo catheter exchanged on admission. If WBC up again tomorrow, repeat u/a pt is also on flomax .8mg daily. UOP still a bit dark (5) Seizure disorder as sequela of cerebrovascular accident: Status: Chronic Assessment and plan: -Continue antiseizure medications, getting IV as he doesn't tolerate oral well. (6) DVT prophylaxis: Status: Acute Assessment and plan: SCDs and enoxaparin. (7) Constipation: Status: Acute Assessment and plan: Discussed bowel regimen again with team. Taking scheduled MOM. He consistently refuses part of his bowel regimen. stop docusate as he doesn't take pills well and this has minimal efficacy refused senna, try bisacodyl. (8) Smoker: Status: Chronic Assessment and plan: NRT patch prn (9) Hypokalemia: Status: Resolved Assessment and plan: K+ and Mg++ improved (10) Dysphagia, oropharyngeal phase: Status: Acute Assessment and plan: per previous GAS TORCH BRAZIER evaluation, concern for poor effort/behavioral issue rather than neurologic. We have stressed importance of putting on weight. I don't think he is a PEG candidate without neurologic dysphagia. I hope he feels better when infection better controlled and eats. Had nutrition consult, appetite improving with mirtazipine. (11) Advanced care planning/counseling discussion: Status: Acute Assessment and plan: -Palliative Care discussed with Patients regarding Hospice, but patient not interested at this point. -Case discussed with after getting okay from Mr. Eduardo, talked with son today. -He is not swallowing pills or liquids well at home. They prefer him to continue IV antibiotics in hospital, he will likely need prolonged IV therapy with vancomycin for MRSA as inpatient/swing status. -Appreciated palliative care input -overall picture of FTT. He denies depression, but taking mirtazipine for appetite, continue at 7.5mg, low dose probably most effective for appetite. 07/21/24 Long discussion with daughter today who states that Mirtazapine causes vivid dreams/hallucinations/nightmares and request that this medication be stopped. Will stop and monitor for improvement (12) Severe protein-calorie malnutrition (Phillips: less than 60% of standard weight): Status: Acute Assessment and plan: will start on ensure and add megace. will d/w nutrition any other recommendations Subjective Subjective Interval history since last seen: Pt seen and examined in his room this am. POC d/w pt/daughter (Bertha) as well as on MDR and bedside nurse. Per my discussion with the daughter (ZUHAIR), the plan is to discharge to home on Wednesday. I did discuss with her the risks/benefits of alternative modes of nutrition including TPN/NG/PEG and at this time they are hoping for improvement with appetite stimulants. Exam Narrative Exam Narrative: Thin, cachectic appearing older gentleman laying in bed in no acute distress, awake, alert to person and place. Affect less depressed, more engaged. heart regular rhythm but distant, lungs clear to auscultation bilaterally, abdomen soft, nontender, nondistended. Sacral wound dressed (see wound notes). Ext no edema, not tender. giraldo in place. Scaphoid abdomen Objective Last Vital Signs Temp 36.3 C L 07/22/24 07:30 Pulse 62 07/22/24 07:30 Resp 16 07/22/24 07:30 BP 116/69 07/22/24 07:30 Pulse Ox 95 07/22/24 07:30 Laboratory Results - last 24 hr 07/22/24 06:20 WBC 8.31 RBC 3.52 L Hgb 10.4 L Hct 32.7 L MCV 93 MCH 29.5 MCHC 31.8 L RDW 16.2 H Plt Count 176 D MPV 8.9 Sodium 149 H Potassium 4.0 Chloride 112 H Carbon Dioxide 30.2 Anion Gap 6.8 BUN 11 Creatinine 0.9 Est GFR (CKD-EPI 2020) 87.42 Glucose 89 Calcium 9.2 Total Bilirubin 0.45 AST 11 L ALT 14 L Alkaline Phosphatase 104 Total Protein 6.4 Albumin 2.3 L Random Vancomycin 24.5 Time Spent with Patient Time Spent with Patient: >50 minutes Time was spent: preparing to see the patient(eg.review tests), obtaining and/or reviewing separately otained hiistory, ordering medications,tests, procedures, referring, communicating with other health health care / medical job titles, indepentently interpreting results, counseling the patient and care coordination
[2024-07-22 14:49] VITALS: BP 128/73; PULSE 68; RESP 16; TEMP 36.8; O2SAT 97
[2024-07-22] MEDS: VANCOMYCIN/WATER (PEG) 1 GM/200 ML BAG IVPB (15:50)
[2024-07-22] MEDS: Acetaminophen 500 MG TAB 1000 MG PO (18:55)
[2024-07-22] MEDS: Melatonin 3 MG TAB PO (20:25)
[2024-07-22] MEDS: Nystatin POWDER 60 GM JAR TP (20:26)
[2024-07-22] MEDS: Normal Saline Flush 10 ML SYR IVP (20:31)
[2024-07-23 06:15] VITALS: BP 132/67; PULSE 60; RESP 16; TEMP 36.4; O2SAT 98
[2024-07-23 07:20] VITALS: BP 123/69; PULSE 62; RESP 22; TEMP 36.8; O2SAT 94
[2024-07-23] MEDS: Acetaminophen 500 MG TAB 1000 MG PO ×2 (09:52→15:52)
[2024-07-23] MEDS: Potassium Chloride Liquid 20 MEQ PKT PO (09:53)
[2024-07-23] MEDS: Protein Nutritional Supplement 16 GM 1 OUNCE PACKET PO ×2 (10:11→19:24)
[2024-07-23] MEDS: Normal Saline Flush 10 ML SYR IVP (10:12)
--- NOTE | 2024-07-23 11:00 | PGE_ITS ---
Date of Service Date of service: 07/23/24 Time of Service: 11: Assessment and Plan Assessment and plan (1) MRSA bacteremia: Status: Acute Assessment and plan: -Initially met sepsis criteria, source is sacral ulcer/osteomyeltis -has been on linezolid, patient refused AM 07/12, but has since accepted medication -repeat blood cultures again MRSA positive 07/12 (1/2 bottles, did not report until 07/16), repeated 07/17 am NGTD x 72 hours -Given lack of clearance of bacteremia after 5 days on Linazolid, no plans for oral therapy, changed to vancomycin 07/17 -with persistent infection, echo done, inconclusive but treating at least another 4 weeks for osteomyelitis, I don't think CESAR worth the risk -surprisingly, WBC up 07/19. Repeat ordered with CRP. No signs of new i nfection. Continue to monitor and trend this. -If WBC still high should repeat urine culture, though no clear focal UTI symptoms. -PICC 07/22 if cultures negative pt agrees with lab draw in am 07/21/24 Vanc level elevated today to 24. Will d/w pharmacy, otw cw medical management. Will review culture results as well (2) Sacral decubitus ulcer: Status: Chronic Assessment and plan: -This is the apparent source of the bacteremia -We are not headed towards hospice/BACTERIOLOGIST DAIRY, we need to treat the osteo and heal this - Continue wound care while hospitalized and [facility]. - Patient is basically bedridden at this time, work on offloading. We need to mobilize him and get him to gain weight. He is more mobile this morning, order PT 07/21/24 Pt POC d/w MDR this am. Wound care has recommended surgical consult for debridement. Will d/w daugther tomorrow as well as with pt. Non-emergent or urgent so will call surgery on Wednesday if family/pt agree. 07/23/24 I did d/w pt and family the recommendation for a surgical consultation and they agreed to pursue this tomorrow Qualifiers: Pressure injury stage: stage 3 Qualified Code(s): L89.153 - Pressure ulcer of sacral region, stage 3 (3) Sacral osteomyelitis: Status: Acute Assessment and plan: see above. (4) Prostate cancer: Status: Chronic Assessment and plan: -Status post radiation therapy on annual surveillance with chronic bladder outlet obstruction and indwelling Giraldo catheter. -Giraldo catheter exchanged on admission. If WBC up again tomorrow, repeat u/a pt is also on flomax .8mg daily. UOP still a bit dark 07/23/24 will change flomax 0.4 mg po bid (5) Seizure disorder as sequela of cerebrovascular accident: Status: Chronic Assessment and plan: -Continue antiseizure medications, getting IV as he doesn't tolerate oral well. (6) DVT prophylaxis: Status: Acute Assessment and plan: SCDs and enoxaparin. (7) Constipation: Status: Acute Assessment and plan: Discussed bowel regimen again with team. Taking scheduled MOM. He consistently refuses part of his bowel regimen. stop docusate as he doesn't take pills well and this has minimal efficacy refused senna, try bisacodyl. (8) Smoker: Status: Chronic Assessment and plan: NRT patch prn (9) Hypokalemia: Status: Resolved Assessment and plan: K+ and Mg++ improved (10) Dysphagia, oropharyngeal phase: Status: Acute Assessment and plan: per previous ACROBATIC RIGGER evaluation, concern for poor effort/behavioral issue rather than neurologic. We have stressed importance of putting on weight. I don't think he is a PEG candidate without neurologic dysphagia. I hope he feels better when infection better controlled and eats. Had nutrition consult, appetite improving with mirtazipine. family states that he has an intolerance to mirtazipine and requested that this medication (11) Advanced care planning/counseling discussion: Status: Acute Assessment and plan: -Palliative Care discussed with Patients regarding Hospice, but patient not interested at this point. -Case discussed with after getting okay from Mr. Eduardo, talked with son today. -He is not swallowing pills or liquids well at home. They prefer him to continue IV antibiotics in hospital, he will likely need prolonged IV therapy with vancomycin for MRSA as inpatient/swing status. -Appreciated palliative care input -overall picture of FTT. He denies depression, but taking mirtazipine for appetite, continue at 7.5mg, low dose probably most effective for appetite. 07/21/24 Long discussion with daughter today who states that Mirtazapine causes vivid dreams/hallucinations/nightmares and request that this medication be stopped. Will stop and monitor for improvement (12) Severe protein-calorie malnutrition (Phillips: less than 60% of standard weight): Status: Acute Assessment and plan: will start on ensure and add megace. will d/w nutrition any other recommendations 07/23/24 D/w the family yesterday possible alternative nutrition methods including tpn/ng/peg. The family wants to try appetite stimulants first Subjective Subjective Interval history since last seen: Pt seen and examined in his room this am. POC d/w pt and at MDR with bedside nurse. I will also talk with pt's daughter this am Exam Narrative Exam Narrative: Thin, cachectic appearing older gentleman laying in bed in no acute distress, awake, alert to person and place. Affect less depressed, more engaged. heart regular rhythm but distant, lungs clear to auscultation bilaterally, abdomen soft, nontender, nondistended. Sacral wound dressed (see wound notes). Ext no edema, not tender. giraldo in place. Scaphoid abdomen Objective Last Vital Signs Temp 36.8 C 07/23/24 07:20 Pulse 62 07/23/24 07:20 Resp 22 07/23/24 07:20 BP 123/69 07/23/24 07:20 Pulse Ox 94 07/23/24 07:20 Time Spent with Patient Time Spent with Patient: 25-34 minutes Time was spent: preparing to see the patient(eg.review tests), obtaining and/or reviewing separately otained hiistory, ordering medications,tests, procedures, referring, communicating with other health critical care transport nurse, indepentently interpreting results, counseling the patient and care coordination
--- NOTE | 2024-07-23 11:29 | PT.INTREAT ---
PT Notes Visit Reasons: Sepsis, UTI with MRSA, CHUCK, .... refused PT again today. I'm not getting out of bed. I don't feel like it. Will try again tomorrow.
[2024-07-23 15:48] VITALS: BP 128/78; PULSE 60; RESP 22; TEMP 36.6; O2SAT 96
[2024-07-23] MEDS: VANCOMYCIN/WATER (PEG) 1 GM/200 ML BAG IVPB (16:06)
[2024-07-23] MEDS: Tamsulosin 0.4 MG CAPCR PO (19:25)
[2024-07-23] MEDS: Nystatin POWDER 60 GM JAR TP (22:11)
[2024-07-23 23:01] VITALS: BP 135/73; PULSE 60; RESP 16; TEMP 36.6; O2SAT 92
[2024-07-24] MEDS: Acetaminophen 500 MG TAB 1000 MG PO ×2 (06:41→17:38)
[2024-07-24 07:15] VITALS: BP 128/74; PULSE 64; RESP 16; TEMP 36.2; O2SAT 97
[2024-07-24 07:16] LABS: Vancomycin, Random 21.4 ug/mL
--- NOTE | 2024-07-24 08:42 | TELEFU_ITS ---
Date of service: 07/24/24 Time of Service: 08:42 Nutrition Note NOTE: Pt with continued high kcal and protein needs due to his wounds/infection, however unable/unwilling to take adequate po. Pt has experienced 19.5% body weight loss over the last 2 months (55.3kg on 05/24, and 44.5kg 07/19 = 10.8kg loss). His intake from meal trays varies from refuses to 75% over admission with more frequently being 25-50%. Pt has been offered very high kcal Boost and other ONS options with high frequency of refusal. Pt declines nutrition focuses physical exam. Current BMI 07/22/24 was 14.1 Pt was started on mirtazapine, which was switched to megace due to family request (states intolerant of mirtazapine) Total protein WNL 07/22, albumin 2.3 07/22 Family wants to try appetite stimulant first before considering artificial feeding per last hospitalist note 07/23. Estimated nutrition needs: 1967kcals (REE x1.2AFx1.4IF) to account for infection and wounds - recommend exceeding 2,000kcals per day to help with weight gain. DATA OPERATIONS LEADER/hospice being considered as well. Will continue to monitor and support whatever options pt and family decide on. Time Spent in Nutritional Counseling and Treatment: 5 min
[2024-07-24] MEDS: Potassium Chloride Liquid 20 MEQ PKT PO (09:02)
[2024-07-24] MEDS: Protein Nutritional Supplement 16 GM 1 OUNCE PACKET PO ×2 (09:02→19:55)
[2024-07-24] MEDS: Polyethylene Glycol 3350 17 GM PACKET PO (09:03)
--- NOTE | 2024-07-24 09:47 | NUR.NOTE ---
Patient requested that the doctor give him his medications and review his test results with him. Dr. Grullon explained the Vanco trough result and how it effects the strength of his antibiotic dose. Patient refused his medications stating, I'm getting overdosed, I've already taken those pills this morning. The doctor and this nurse tried to reorient him, but were unsuccessful and he refused all oral pills. This nurse will reattempt when the Patient's daughter is here. Patient c/o LLQ pain, Dr. Grullon assessed the patient.
--- NOTE | 2024-07-24 10:30 | PT.INTREAT ---
PT Notes Visit Reasons: Sepsis, UTI with MRSA, CHUCK, .... Physical Therapy Inpatient Treatment Note Date: 07/24/2024 Precautions: Fall. Activity as tolerated. CONTACT PRECAUTIONS IN PLACE. Subjective: Willing to work with PT this morning. Was unavailable in the afternoon as he has been with his daughter. Reported fatigue during both visits. Objective: General Observation: Cachexic. Resting in bed. IV access through L UE. Mckoen catheter in place. Wound dressing over sacral decubitus replaced by Nurse Mojgan, antonietta and slough noted with periphery of wound dark pink in color. telemtry monitoring in place. Mental Status: Alert and oriented as to person and place. Able to pay attention but required a longer time for responses. Pain: None reported Vital Signs: Closely monitored by nursing staff Bed Mobility/Transfers: Minimal cueing provided for use of B hands as needed for support, movement sequence, AD management, and posture to reduce fall risk and minimize pain report Supine to sit minimal assist Sit to stand minimal assist with FWW Stand to sit with minimal assist with FWW Bed to reclining chair minimal assist with FWW Gait: 8-10 small steps with use of FWW with contact guard assist and minimal verbal cueing for safe limb advancement, hand placement, AD management, and posture to minimize pain report and reduce fall risk. No LOB. No SOB. Fatigued after activity. Patient positioning in chair: Ensured placement of seat cushion and faux sheep skin directly under patient. Placed pillows on each side of patient to optimize neutral trunk alignment. Added pillows behind patient to cushion stage III/IV decubitus. Reclined chair to patient's comfort. Balance: Static Sitting: Normal Dynamic Sitting: Normal Static Standing: Fair Dynamic Standing: fair ASSESSMENT: Patient was discontinued from services as of 07/12/2024 due to plan of discharge home to go on hospice the following day with MADI Bains aware of the plan and interdisciplinary team updated of same during morning meeting on 07/17/2024. PT services needed to be stopped then as patient's overall medical status was deterirorating as oral intake had been diminishing and medication intake were being refused. Continues to present with functional mobility decline needing the assistance of 1 for transfers and in-room ambulation. Barriers to achieving functional goals: limited activity tolerance, decreased motivation, poor oral intake, stage III decubitus ulcer on sacral and L gluteal areas. Will continue to assess benefit visit frequency for patient based on activity tolerance--one session vs. 2 short sessions per day. Goals: Goals X1 week 1. Supine-Sit independent 2. Sit-Supine independent 3. Sit-Stand independent 4. Stand-Sit independent with FWW 5. Bed-Chair independent with FWW 6. Chair-Bed independent with FWW 7. Independent gait on level surface with use of FWW for at least 300 feet without report of pain nor dyspnea 8. Independent stair negotiation while holding onto B rails for at least 3 steps without report of pain nor dyspnea 9. Independent with home exercise program 10. Good static and dynamic standing balance/tolerance Plan of Care/Treatment Plan: 1-2x/day, 7 days/week x 1 week. Plan of care has been reviewed with the TRADE SHOW COORDINATOR providing the service under Physical Therapy direction. Initiate Physical Therapy intervention for pain management as needed, strengthening, bed mobility, transfers, gait, stairs, balance training, and use of assistive device. DISCHARGE RECOMMENDATIONS: [] Home with no services [] [] Home with services [specify] [] Home with outpatient PT [] [] SNF for continued rehabilitation [] [] Shelter Care [] [] SNF versus LTC based on ability to participate and progress [] [X] Short-term rehab vs. PT based on progress towards goals TREATMENT CODE/TIME: 53785 x 34 minutes for 2 units (10:30-11:04).
--- NOTE | 2024-07-24 11:33 | W.SURGCON ---
Date of service: 07/24/24 Time of Service: 14:00 Assessment and Plan Assessment and plan (1) Sacral osteomyelitis: Status: Acute Assessment and plan: 78-year-old man who is nearing the end of his life. Pressure ulcers are a reality for any human under his circumstances. There is no role for surgical intervention. I spent about 30-40 minutes discussing the reasons with the patient's daughter and at the bedside. I explained everything in careful, but empathetic and compassionate detail. Surgical debridement will make his wounds more painful. There is no hope in these wounds ever healing. Futile measures make objective reasons pointless. The overall perspective of making him comfortable also makes debridement pointless. I recommend that no further wound care be done by nursing or wound care consultation. No dressings. No debridement. Comfort measures ONLY should be pursued. History of Present Illness Narrative: The patient is a 70-year-old man who is DNR/DNI and currently palliative care/hospice per family members who are present, constipation. The man himself is completely asleep at the time of consultation and unarousable. I was consulted for sacral decubitus ulcer. According to the family members it is causing a lot of pain and discomfort. He has osteomyelitis proven on MRI number of days ago. The patient's daughter and his report that he was in rehab about 5 months ago, and he developed the ulcers then. Since then he has only declined and he is wasting away at this point. He currently has a PICC line and is getting IV antibiotics PFSH All Active Problems (Updated 07/21/24 @ 09:18 by Medardo Grullon MD) Severe protein-calorie malnutrition (Phillips: less than 60% of standard weight) (Acute) Dysphagia, oropharyngeal phase (Acute) Sacral osteomyelitis (Acute) MRSA bacteremia (Acute) Constipation (Acute) Delirium (Acute) Sepsis due to methicillin resistant Staphylococcus aureus (MRSA) (Acute) Sacral decubitus ulcer (Chronic) Urinary tract infection (Acute) Sepsis (Acute) Advanced care planning/counseling discussion (Acute) Palliative care encounter (Acute) Seizure disorder as sequela of cerebrovascular accident (Chronic) s/p CVA/hemorrhage, h/o breakthrough in setting of UTI/fever Recurrent UTI (Acute) History of follicular lymphoma (Chronic) Prostate cancer (Chronic) S/P Radiation therapy. Currently under surveillance with very low but detectible PSA (05/2024). Dr. Evans. 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 Major depressive disorder, single episode Leakage of other urinary catheter, initial encounter Family history of breast cancer Essential (primary) hypertension Delirium due to known physiological condition Contact with and (suspected) exposure to other hazardous substances Bradycardia, unspecified Closed fracture of left proximal humerus (01/10/23) CVA (cerebral vascular accident) Lymphoma Hypertension Surgical History History of craniotomy for brain bleed Family History Father Personal history of malignant neoplasm prostate cancer Social History Smoking/Tobacco Use Status: Current every day Tobacco Type: cigarettes Smoking packs per day: 1 Smoking cigarettes per day: 20.0 Smoking risk assessment performed?: Yes Alcohol Intake: former Drug use: Never Substance use type: does not use Housing: house Current gender identity: male Do you feel safe at home: Yes Do you feel safe in your relationship?: Yes Exam Narrative Exam Narrative: General: feeble, bedridden, cachectic, poorly responsive Results Last Vital Signs Temp 97.2 F L 07/24/24 07:15 Pulse 64 07/24/24 07:15 Resp 16 07/24/24 07:15 BP 128/74 07/24/24 07:15 Pulse Ox 97 07/24/24 07:15 Labs 07/22/24 06:20 07/22/24 06:20 Labs: Laboratory Results - last 24 hr 07/23/24 07/24/24 16:44 06:43 Glucose Cancelled Random Vancomycin 21.4
[2024-07-24] MEDS: Nystatin POWDER 60 GM JAR TP ×2 (11:45→19:55)
--- NOTE | 2024-07-24 13:49 | PGE_ITS ---
Date of Service Date of service: 07/24/24 Time of Service: 13:50 Assessment and Plan Assessment and plan (1) MRSA bacteremia: Status: Acute Assessment and plan: -Initially met sepsis criteria, source is sacral ulcer/osteomyeltis -has been on linezolid, patient refused AM 07/12, but has since accepted medication -repeat blood cultures again MRSA positive 07/12 (1/2 bottles, did not report until 07/16), repeated 07/17 am NGTD x 72 hours -Given lack of clearance of bacteremia after 5 days on Linazolid, no plans for oral therapy, changed to vancomycin 07/17 -with persistent infection, echo done, inconclusive but treating at least another 4 weeks for osteomyelitis, I don't think CESAR worth the risk -surprisingly, WBC up 07/19. Repeat ordered with CRP. No signs of new i nfection. Continue to monitor and trend this. -If WBC still high should repeat urine culture, though no clear focal UTI symptoms. -PICC 07/22 if cultures negative pt agrees with lab draw in am 07/21/24 Vanc level elevated today to 24. Will d/w pharmacy, otw cw medical management. Will review culture results as well Will stop abx per pt and family request. Will keep PICC line until pt is seen by palliative/hospice (2) Sacral decubitus ulcer: Status: Chronic Assessment and plan: -This is the apparent source of the bacteremia -We are not headed towards hospice/DIRECTOR OF DEVELOPMENT AND MARKETING, we need to treat the osteo and heal this - Continue wound care while hospitalized and [facility]. - Patient is basically bedridden at this time, work on offloading. We need to mobilize him and get him to gain weight. He is more mobile this morning, order PT 07/21/24 Pt POC d/w MDR this am. Wound care has recommended surgical consult for debridement. Will d/w daugther tomorrow as well as with pt. Non-emergent or urgent so will call surgery on Wednesday if family/pt agree. 07/23/24 I did d/w pt and family the recommendation for a surgical consultation and they agreed to pursue this tomorrow 07/24/24 Pt seen and examined by surgery. No intervention recommended. Qualifiers: Pressure injury stage: stage 3 Qualified Code(s): L89.153 - Pressure ulcer of sacral region, stage 3 (3) Sacral osteomyelitis: Status: Acute Assessment and plan: see above. (4) Prostate cancer: Status: Chronic Assessment and plan: -Status post radiation therapy on annual surveillance with chronic bladder outlet obstruction and indwelling Giraldo catheter. -Giraldo catheter exchanged on admission. If WBC up again tomorrow, repeat u/a pt is also on flomax .8mg daily. UOP still a bit dark 07/23/24 will change flomax 0.4 mg po bid (5) Seizure disorder as sequela of cerebrovascular accident: Status: Chronic Assessment and plan: -Continue antiseizure medications, getting IV as he doesn't tolerate oral well. (6) DVT prophylaxis: Status: Acute Assessment and plan: SCDs and enoxaparin. (7) Constipation: Status: Acute Assessment and plan: Discussed bowel regimen again with team. Taking scheduled MOM. He consistently refuses part of his bowel regimen. stop docusate as he doesn't take pills well and this has minimal efficacy refused senna, try bisacodyl. (8) Smoker: Status: Chronic Assessment and plan: NRT patch prn (9) Hypokalemia: Status: Resolved Assessment and plan: K+ and Mg++ improved (10) Dysphagia, oropharyngeal phase: Status: Acute Assessment and plan: per previous MEDICAL SECRETARY evaluation, concern for poor effort/behavioral issue rather than neurologic. We have stressed importance of putting on weight. I don't think he is a PEG candidate without neurologic dysphagia. I hope he feels better when infection better controlled and eats. Had nutrition consult, appetite improving with mirtazipine. family states that he has an intolerance to mirtazipine and requested that this medication (11) Advanced care planning/counseling discussion: Status: Acute Assessment and plan: -Palliative Care discussed with Patients regarding Hospice, but patient not interested at this point. -Case discussed with after getting okay from Mr. Eduardo, talked with son today. -He is not swallowing pills or liquids well at home. They prefer him to continue IV antibiotics in hospital, he will likely need prolonged IV therapy with vancomycin for MRSA as inpatient/swing status. -Appreciated palliative care input -overall picture of FTT. He denies depression, but taking mirtazipine for appetite, continue at 7.5mg, low dose probably most effective for appetite. 07/21/24 Long discussion with daughter today who states that Mirtazapine causes vivid dreams/hallucinations/nightmares and request that this medication be stopped. Will stop and monitor for improvement (12) Severe protein-calorie malnutrition (Phillips: less than 60% of standard weight): Status: Acute Assessment and plan: will start on ensure and add megace. will d/w nutrition any other recommendations 07/23/24 D/w the family yesterday possible alternative nutrition methods including tpn/ng/peg. The family wants to try appetite stimulants first Subjective Subjective Interval history since last seen: Pt seen and examined in his room. POC d/w pt/daughter/ as well as during MDR with bedside nurse. POC also discussed with GS (Romina) who does not recommend surgical intervention at this time. NS states that the pt and family no longer want iv abx so the vancomycin will be stopped. Plan is to dc tomorrow Exam Narrative Exam Narrative: Thin, cachectic appearing older gentleman laying in bed in no acute distress, awake, alert to person and place. Affect less depressed, more engaged. heart regular rhythm but distant, lungs clear to auscultation bilaterally, abdomen soft, nontender, nondistended. Sacral wound dressed (see wound notes). Ext no edema, not tender. giraldo in place. Scaphoid abdomen Objective Last Vital Signs Temp 36.2 C L 07/24/24 07:15 Pulse 64 07/24/24 07:15 Resp 16 07/24/24 07:15 BP 128/74 07/24/24 07:15 Pulse Ox 97 07/24/24 07:15 Laboratory Results - last 24 hr 07/23/24 07/24/24 16:44 06:43 Glucose Cancelled Random Vancomycin 21.4 Time Spent with Patient Time Spent with Patient: 25-34 minutes Time was spent: preparing to see the patient(eg.review tests), obtaining and/or reviewing separately otained hiistory, ordering medications,tests, procedures, referring, communicating with other health respiratory care instructor, indepentently interpreting results, counseling the patient and care coordination
--- NOTE | 2024-07-24 16:41 | CMPROGNOTE_ITS ---
Date of service: 07/24/24 Time of Service: 14:10 Care Management Progress Note Progress Note Text Progress Note Text: CM spoke with Bertha and Darrel who were visiting today. At that time, the plan was to send Narcisa home on IV abx, [facility], and also [facility] who would be administrating and teaching. Later in the day, Narcisa had a surgical consult, and the family was told that Narcisa's wound would likely never heal. Darrel decided that she wants to stop the antibiotics and take Narcisa home on hospice care. CM discussed this decision with Darrel and Bertha. They are confident and clear in this decision. [facility], who let her know the plan of admission and what to expect at home in terms of supports. Narcisa will be discharged home tomorrow with a hospice admission on 07/26. He already has a hospital bed and the equipment the family feels is necessary. MD is aware and the ME has been notified of the change in plan, by this CM. Discharge Potential Discharge Needs: Other (Narcisa will f/u with hospice providers in his home.) Anticipated Barriers to Discharge: None Identified Patient/Family Education Needs: Review discharge instructions, discuss Ask Me Three Transportation: EMS Plan: Narcisa will be discharged home tomorrow and admitted to hospice on the following day. He will f/u with the hospice providers, receive their support and the [facility] the [facility]. He will transport home via EMS, as he is bedbound and a hospice patient. CM will continue to follow. SDOH(Care Management) Screening Will the Patient Participate in the Screening?: Yes Do you worry about having a steady place to live?: no Problems where you live: no known problems In the past 12 months, have you had to go without electric, gas, oil or water in your home?: no Have you or anyone in your house had to go without enough food to eat?: no Has lack of transportation kept you from medical appointments or from doing things needed for daily living?: no Has anyone in your support network made you feel unsafe for any reason?: no
[2024-07-24] MEDS: Tamsulosin 0.4 MG CAPCR PO (19:53)
[2024-07-25] MEDS: Acetaminophen 500 MG TAB 1000 MG PO (05:41)
[2024-07-25 08:03] VITALS: BP 114/77; PULSE 61; RESP 18; TEMP 36.5; O2SAT 96
--- NOTE | 2024-07-25 09:16 | W.PM.DS.N ---
Date of service: 07/25/24 Time of Service: 09:16 DS: Diagnosis Discharge Diagnosis (1) Sacral osteomyelitis: Status: Acute Discharge Plan Disposition Patient Disposition: Home W/Hospice Services Condition: Deteriorating Discharge Details Reason For Visit: Sepsis, UTI with MRSA, CHUCK, .... Admit Date/Time: 07/07/24 23:48 Admit Provider: Robson Ochoa Attending Provider: Robson Ochoa Primary Care Provider: Elyse Gutierrez Hospital Course Hospital Course: 78 yo M with history of PAD/AAA, smoking, prostate Ca and follicular lymphoma in remission, h/o seizures and cognitive dysfunction s/p hemorrhagic CVA, and recent weight loss/cachexia who presented with increased confusion and was diagnosed and treated for sepsis. He had an unstagable sacral pressure wound and an indwelling giraldo catheter that were suspected sources. He was initially treated with linazolid starting 07/07. He had a recent urine culture with MRSA but his admission u/a only grew mixed stefania. His blood and sacral wound both grew MRSA, and this was the source of his infection. The patient and his family had been meeting with palliative care and considering hospice, so the initial work up was not aggressive. The patient refused his medication at times. By 07/18, however, it was clear he was not pursuing hospice/MISSION ANALYST status. At that point, MRI of the sacrum was ordered and confirmed osteomyelitis. Echo was ordered and did no show vegetations, though images were limited by patient non-cooperation. the 07/12 follow up blood cultures were still positive 1/2 for MRSA, so he was changed from linazolid to vancomycin. PICC was deferred until repeat cultures from 07/17 were negative x 72 hours. Wound care and nutrition were consulted and efforts were made to improve his nutrition intake and offload his wound. The patient appeared depressed and disengaged, but denies depression. He was not eating much and he was willing to try mirtazapine for appetite. PEG was discussed but previous swallow evaluation was suggestive of oropharyngeal dysphagia with limited effort rather than neurologic or physical cause of dysphagia. General surgery consultation was placed and the recommendation was to not do any wound debridement secondary to patient comfort and overall prognosis. At that time the decision was made by the family to stop IV antibiotics and discharge the patient home. Family and patient do not want any further intervention. Home Meds and New Rx's Prescriptions: New megestrol 40 mg Tablet 40 mg PO DAILY 30 Days Qty: 30 0RF Santyl 250 unit/gram Ointment 1 applic topical DAILY PRN30 Days Qty: 30 0RF oxycodone 5 mg Tablet 5 mg PO Q6H PRN MDD 6 per day PRN (Reason: pain) Qty: 14 0RF Continued (DME) Mepilex Border 6 X 6 bandage See Rx Instructions .Route Rx Instructions: As directed honey 100 % paste 1 applic topical DIRECTED (DME) foam bandage 8 X 8 bandage See Rx Instructions .Route Rx Instructions: As directed midazolam 5 mg/spray (0.1 mL) spray,non-aerosol 5 mg intranasal ONCE PRN Rx Instructions: one spray intranasally once as needed for convulsive seizure; may repeat dose in other nostril after 10 minutes if another seizure (DME) Mepilex 4 X 4 bandage See Rx Instructions .Route Rx Instructions: As directed acetaminophen 650 mg suppository 650 mg WA Q6H PRN (Reason: fever, mild pain) Qty: 6 0RF Rx Instructions: Hospice Patient hyoscyamine sulfate 0.125 mg tablet,disintegrating 0.125 - 0.25 mg PO Q4H PRN (Reason: secretions) Qty: 24 0RF Rx Instructions: Hospice Patient lorazepam 1 mg tablet 1 mg PO Q4H PRN (Reason: anxiety, DUNNE or nausea) Qty: 6 5RF Rx Instructions: Hospice Patient haloperidol lactate 2 mg/mL concentrate 1 mg PO Q6H PRN (Reason: agitation) Qty: 15 0RF Rx Instructions: Hospice Patient morphine concentrate 100 mg/5 mL (20 mg/mL) solution 5 - 20 mg PO Q1-4H MDD 5 mL PRN (Reason: moderate to severe pain or shortness of breath) Qty: 30 0RF Rx Instructions: Hospice Patient prochlorperazine maleate 10 mg tablet 10 mg PO Q6H PRN (Reason: nausea and vomiting) Qty: 6 0RF Rx Instructions: Hospice Patient bisacodyl [Dulcolax (bisacodyl)] 10 mg suppository 10 mg WA daily PRN (Reason: constipation) Qty: 2 0RF Rx Instructions: Hospice Patient Insert 1 supp WA Daily PRN constipation (no BM in 3 days) melatonin 3 mg Tablet 3 mg PO HS lactobacillus combo #5 150 mg (2 billion cell) Tablet,Delayed Release (Dr/Ec) 1 mg PO DAILY Patient Comments: not taking acetaminophen 500 mg Tablet 1,000 mg PO Q8H PRN PRNQty: 0 0RF docusate sodium [Colace] 100 mg Capsule 100 mg PO BID Qty: 0 0RF sennosides [Senokot] 8.6 mg Tablet 8.6 mg PO BID Qty: 60 0RF potassium chloride 10 mEq Tablet,Er Particles/Crystals 10 meq PO DAILY Qty: 0 0RF tamsulosin 0.4 mg Capsule 0.4 mg PO BID Patient Comments: usually takes after meal cholecalciferol (vitamin D3) [Vitamin D3] 25 mcg (1,000 unit) Tablet 25 mcg PO .qod lacosamide 100 mg Tablet 200 mg PO BID Patient Comments: patient reports only able to swallow 50mg tablet. patient unable to swallow 100mg tablet Discontinued atorvastatin 40 mg tablet 40 mg PO QPM Discharge Instructions Activity:: Activity as Tolerated Equipment/Supplies:: No Equipment Needed Diet:: As Tolerated DS: Summary Time Spent with Patient providing and/or coordinating discharge services: Greater than 30 minutes Status at Discharge Functional status at discharge: bed bound Overall status at discharge: patient is back to baseline Mental Status: mental status grossly normal Speech and Movement: speech and movement normal Mood: congruent mood Affect: indifferent and irritable affect Quality:SDOH Health Related Social Needs: No Data to Display Exam Narrative Exam Narrative: Thin, cachectic appearing older gentleman laying in bed in no acute distress, awake, alert to person and place. Affect less depressed, more engaged. heart regular rhythm but distant, lungs clear to auscultation bilaterally, abdomen soft, nontender, nondistended. Sacral wound dressed (see wound notes). Ext no edema, not tender. giraldo in place. Scaphoid abdomen Psych Mental Status: mental status grossly normal Speech and Movement: speech and movement normal Mood: congruent mood Affect: indifferent and irritable affect DS: Data Vitals/I&O Vitals and I&O: Vital Signs Temperature 36.5 C 07/25/24 08:03 Temperature Source Temporal Artery Scan 07/25/24 08:03 Pulse 61 07/25/24 08:03 Pulse 86 07/10/24 18:00 Respiratory Rate 18 07/25/24 08:03 Respiratory Effort Normal 07/08/24 01:25 Respiratory Pattern Normal 07/08/24 01:25 Blood Pressure 114/77 07/25/24 08:03 Blood Pressure Mean 82 07/11/24 12:08 Blood Pressure Position Supine 07/08/24 01:25 Pulse Oximetry 96 07/25/24 08:03 Oxygen Delivery Method Room Air 07/25/24 08:03 Oxygen Flow Rate 0 07/25/24 08:03 Pain Level 7 07/25/24 05:41 Comment pT asleep 07/25/24 07:42 Intake & Output 07/24/24 07/24/24 07/25/24 11:59 23:59 11:59 Intake Total 240 / 240 Output Total 900 / 1150 250 / 1150 450 / 450 Balance -900 / -910 -10 / -910 -450 / -450 Intake: Oral 240 / 240 Output: Urine 900 / 1150 250 / 1150 450 / 450 Other: Urine Color Yellow Yellow Yellow Urine Appearance Cloudy Cloudy Cloudy Comment urine yellow, minimal output in the bag. PFSH All Active Problems (Updated 07/21/24 @ 09:18 by Medardo Grullon MD) Severe protein-calorie malnutrition (Phillips: less than 60% of standard weight) (Acute) Dysphagia, oropharyngeal phase (Acute) Sacral osteomyelitis (Acute) MRSA bacteremia (Acute) Constipation (Acute) Delirium (Acute) Sepsis due to methicillin resistant Staphylococcus aureus (MRSA) (Acute) Sacral decubitus ulcer (Chronic) Urinary tract infection (Acute) Sepsis (Acute) Advanced care planning/counseling discussion (Acute) Palliative care encounter (Acute) Seizure disorder as sequela of cerebrovascular accident (Chronic) s/p CVA/hemorrhage, h/o breakthrough in setting of UTI/fever Recurrent UTI (Acute) History of follicular lymphoma (Chronic) Prostate cancer (Chronic) S/P Radiation therapy. Currently under surveillance with very low but detectible PSA (05/2024). Dr. Evans. 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 Major depressive disorder, single episode Leakage of other urinary catheter, initial encounter Family history of breast cancer Essential (primary) hypertension Delirium due to known physiological condition Contact with and (suspected) exposure to other hazardous substances Bradycardia, unspecified Closed fracture of left proximal humerus (01/10/23) CVA (cerebral vascular accident) Lymphoma Hypertension Surgical History History of craniotomy for brain bleed Family History Father Personal history of malignant neoplasm prostate cancer Social History Smoking/Tobacco Use Status: Current every day Tobacco Type: cigarettes Smoking packs per day: 1 Smoking cigarettes per day: 20.0 Smoking risk assessment performed?: Yes Alcohol Intake: former Drug use: Never Substance use type: does not use Housing: house Current gender identity: male Do you feel safe at home: Yes Do you feel safe in your relationship?: Yes Time Spent with Patient Time Spent with Patient: 45-69 minutes Time was spent: preparing to see the patient(eg.review tests), obtaining and/or reviewing separately otained hiistory, ordering medications,tests, procedures, referring, communicating with other health menagerie caretaker, indepentently interpreting results, counseling the patient and care coordination
[2024-07-25] MEDS: Tamsulosin 0.4 MG CAPCR PO (09:22)
[2024-07-25] MEDS: Potassium Chloride Liquid 20 MEQ PKT PO (09:22)
[2024-07-25] MEDS: Protein Nutritional Supplement 16 GM 1 OUNCE PACKET PO (09:22)
[2024-07-25] MEDS: Lactobacillus Acidophilus CAP 1 CAP PO (09:22)
[2024-07-25] MEDS: Nystatin POWDER 60 GM JAR TP (09:22)
[2024-07-25] MEDS: Polyethylene Glycol 3350 17 GM PACKET PO (09:22)
[2024-07-25] MEDS: Normal Saline Flush 10 ML SYR IVP (09:23)
[2024-07-25] MEDS: Collagenase 30 GM TUBE TP (09:23)
[2024-07-25] MEDS: Enoxaparin 40 MG/0.4 ML SYR SC (09:24)
--- NOTE | 2024-07-25 15:00 | CMDISCH_ITS ---
Date of service: 07/25/24 Time of Service: 14:30 LACE Index Scoring Tool Questions: Length of Stay (in days): 14 or more Was the patient admitted via the E.D.?: Yes Comorbidities: Cerebrovascular Disease (hemorrhagic CVA) and Any Tumor E.D. Visits: 4 Answers: Total Score: 17 Risk of Readmission: High Risk Care Management Discharge Plan Reason for Hospitalization: increased confusion due to sepsis Discharge Plan: Narcisa was discharged home today and will be admitted to hospice tomorrow at his home. Narcisa's and daughter were here at time of discharge, and received all of the necessary teaching. A short script for pain meds were given. Narcisa was discharged home with his PICC line in place, per the provider. CM notified hospice that his PICC line is still present. Plan was made with hospice yesterday, to assure admission for tomorrow. Family is aware hospice will be in tomorrow, and that they can call tonight if there are any issues. CM provided the # to hospice, although they felt they already had it at home. [facility]. Narcisa was transported home via [facility], Kinue was to ride in the front of the ambulance, as coordinated by CM. Narcisa will continue per his plan of care under hospice service. Patient/Family Education Needs: Review of discharge instructions, limitations and f/u plan. Discuss Ask me 3. SDOH Health Related Social Needs: No Data to Display
== END 2024-07-25 14:24 | disposition hospice, home (50) | DRG 871 ==
LOC: ER 07-08 00:49 → ICU 07-10 09:54 → MS 07-11 16:31
PROVIDERS: Family Medicine; Hospitalist; Admitting Provider Family Medicine; Emergency Provider Student in an Organized Health Care Education/Training Program; PCP Internal Medicine; Visit Provider Family Medicine
DX: A41.02 Sepsis due to Methicillin resistant Staphylococcus aureus (principal); E43 Unspecified severe protein-calorie malnutrition; L89.153 Pressure ulcer of sacral region, stage 3; N30.01 Acute cystitis with hematuria; Z68.1 Body mass index [BMI] 19.9 or less, adult; M46.28 Osteomyelitis of vertebra, sacral and sacrococcygeal region; F05 Delirium due to known physiological condition; N17.9 Acute kidney failure, unspecified; N13.8 Other obstructive and reflux uropathy; Z51.5 Encounter for palliative care; I10 Essential (primary) hypertension; C61 Malignant neoplasm of prostate; G40.909 Epilepsy, unspecified, not intractable, without status epilepticus; I69.319 Unspecified symptoms and signs involving cognitive functions following cerebral infarction; F01.50 Vascular dementia, unspecified severity, without behavioral disturbance, psychotic disturbance, mood disturbance, and anxiety; I70.0 Atherosclerosis of aorta; F32.9 Major depressive disorder, single episode, unspecified; I69.398 Other sequelae of cerebral infarction; I69.311 Memory deficit following cerebral infarction; I71.20 Thoracic aortic aneurysm, without rupture, unspecified; I71.40 Abdominal aortic aneurysm, without rupture, unspecified; E83.42 Hypomagnesemia; R33.8 Other retention of urine; R65.20 Severe sepsis without septic shock; R53.1 Weakness; R13.12 Dysphagia, oropharyngeal phase; E87.6 Hypokalemia; B95.62 Methicillin resistant Staphylococcus aureus infection as the cause of diseases classified elsewhere; F17.210 Nicotine dependence, cigarettes, uncomplicated; K59.00 Constipation, unspecified; F43.10 Post-traumatic stress disorder, unspecified; Z85.72 Personal history of non-Hodgkin lymphomas; Z92.3 Personal history of irradiation; Z87.440 Personal history of urinary (tract) infections; L89.892 Pressure ulcer of other site, stage 2
CPT/HCPCS: 36573; 00123; 36415; 71045; 72197; 80048; 80053; 82947; 84145; 85027; 87040; 87077; 87637; 92610; 96365; 96368; 97110; 97162; 97530; 99285; 99498; J1650; 80202; 81003; 81015; 83605; 83735; 85025; 86140; 87070; 87086; 87186; 87205; 93306; 94640; 94667; 94760; 99223; 99231; 99232; 99233; 99239; C9254; J0744; J2020; J2060; J3372; J3475; J7509; J7620